=== PATIENT | female | born 1995 | race Two or more races ===

== ENCOUNTER → 2017-03-24 15:58 | Outpatient (CLI) | payer OTHER, MEDICAID, SELFPAY ==
[2017-03-24 17:46] LABS: hCG Titer Quant., Serum 138 mIU/mL (<9 non-preg)
== END ==
PROVIDERS: Family Provider Family Medicine; PCP Family Medicine; Visit Provider Obstetrics & Gynecology
DX: O20.0 Threatened abortion (principal); Z3A.00 Weeks of gestation of pregnancy not specified
CPT/HCPCS: 36415; 84702

== ENCOUNTER → 2017-03-26 16:37 | Outpatient (CLI) | payer OTHER, MEDICAID, SELFPAY ==
[2017-03-26 18:14] LABS: hCG Titer Quant., Serum 49 mIU/mL (<9 non-preg)
== END ==
PROVIDERS: Visit Provider Obstetrics & Gynecology
DX: N91.2 Amenorrhea, unspecified (principal)
CPT/HCPCS: 36415; 84702

== ENCOUNTER → 2017-09-01 16:42 | Outpatient (CLI) | payer OTHER, MEDICAID, SELFPAY ==
[2017-09-01 19:14] LABS: Chlamydia Trachomatis by PCR Negative (Negative); Neisserai gonorrhoeae by PCR Negative (Negative); Probe Check PASS; Sample Adequacy Control PASS; Specimen Processing Control PASS
== END ==
PROVIDERS: Visit Provider Obstetrics & Gynecology
DX: Z11.3 Encounter for screening for infections with a predominantly sexual mode of transmission (principal)
CPT/HCPCS: 87491; 87591

== ENCOUNTER → 2017-09-08 15:37 | Outpatient (CLI) | payer OTHER, MEDICAID, SELFPAY ==
[2017-09-08 17:21] LABS: Basophil# 0.02 X10^3/uL; Basophil% 0.2 % (0-1); Eosinophil# 0.08 X10^3/uL; Eosinophils% 0.7 % (0-5); Hematocrit 36.6 % (37-47); Hemoglobin 11.6 g/dl (12.0-15.0); Mean Corp Hgb Conc 31.7 g/gl (32-36); Mean Corpuscular Hgb 23.7 pg (27.0-32.0); Mean Corpuscular Volume 74.8 fL (81-99); Mean Platelet Vol. 11.2 fl (6.2-12.0); Monocyte# 0.72 X10^3/uL; Monocyte% 6.3 % (0-10); Neutrophil % 70.4 % (47-70); Platelet Count 365 K/mm3 (150-450); RBC Distribution Width CV 16.6 % (11.6-14.6); RBC Distribution Width SD 44.4 fl (35.1-43.9); Red Blood Count 4.89 M/mm3 (4.2-5.4); White Blood Count 11.4 K/mm3 (4.4-11.0)
[2017-09-08 17:25] LABS: POSITIVE COUNT NO; POSITIVE DIFFERENTIAL NO; POSITIVE MORPHOLOGY NO
[2017-09-08 17:26] LABS: Color, Urine Yellow (Yellow); Glucose, Dipstick Normal (Normal); Ketone-Dipstick 5 mg/dl (Negative); Leukocyte Esterase-Dipstick 500 /ul (Negative); Nitrite-Dipstick Negative (Negative); Occult Blood-Urine 25 /ul (Negative); Protein-Dipstick 15 mg/dl (Negative); Specific Gravity, Urine 1.015 (1.002-1.030); Urine Bilirubin Dipstick Negative (Negative); Urine Clarity Clear (Clear); Urine Urobilinogen Normal (Normal)
[2017-09-08 17:29] LABS: Amphetamine Urine VISTA NEGATIVE (<1000 ng/mL); Barbiturate Urine VISTA NEGATIVE (< 200 ng/mL); Benzodiazepine Urine VISTA NEGATIVE (< 200 ng/mL); Cocaine Urine VISTA NEGATIVE (< 300 ng/mL); Ecstacy Urine VISTA NEGATIVE (< 500 ng/mL); Methadone Urine VISTA NEGATIVE (< 300 ng/mL); PCP Urine VISTA NEGATIVE (< 25 ng/mL); THC Urine VISTA NEGATIVE (< 50 ng/mL); Vista UDS pH Range 6
[2017-09-08 17:33] LABS: Thyroid Stim Hormone (TSH) 3.05 uIU/mL (0.358-3.74)
[2017-09-08 18:27] LABS: HIV - WCH Non-Reactive (Nonreactive); Rubella IgG 9.9 IU/mL
[2017-09-10 03:17] LABS: Prenatal RPR NONREACTIVE (NONREACTIVE)
[2017-09-10 08:12] LABS: HEPATITIS B SURFACE AG Negative (Negative); Hep C Antibodies 0.2 s/co ratio (0.0-0.9)
== END ==
PROVIDERS: Visit Provider Obstetrics & Gynecology
DX: Z34.81 Encounter for supervision of other normal pregnancy, first trimester (principal)
CPT/HCPCS: 36415; 80307; 81002; 84443; 85025; 86703; 86762; 86803; 87340

== ENCOUNTER → 2017-10-11 15:46 | Outpatient (CLI) | payer OTHER, MEDICAID, SELFPAY ==
[2017-10-11 16:57] LABS: Color, Urine Yellow (Yellow); Glucose, Dipstick Normal (Normal); Ketone-Dipstick Negative (Negative); Leukocyte Esterase-Dipstick 100 /ul (Negative); Nitrite-Dipstick Negative (Negative); Occult Blood-Urine 25 /ul (Negative); Protein-Dipstick Negative (Negative); Urine Bilirubin Dipstick Negative (Negative); Urine Clarity Clear (Clear); Urine Urobilinogen Normal (Normal)
[2017-10-11 17:07] LABS: Absolute Lymphocyte Count 2.26 X10^3/ul (0.83-4.51); Basophil# 0.01 X10^3/uL; Basophil% 0.1 % (0-1); Eosinophil# 0.07 X10^3/uL; Eosinophils% 0.8 % (0-5); Hematocrit 39.2 % (37-47); Hemoglobin 12.1 g/dl (12.0-15.0); Lymphocyte # 2.26 X10^3/ul (4.0); Mean Corp Hgb Conc 30.9 g/gl (32-36); Mean Corpuscular Hgb 23.4 pg (27.0-32.0); Mean Platelet Vol. 10.8 fl (6.2-12.0); Monocyte# 0.37 X10^3/uL; Monocyte% 4.3 % (0-10); Neutrophil # 5.98 X10^3/uL (2.7-7.7); Neutrophil % 68.7 % (47-70); Platelet Count 314 K/mm3 (150-450); RBC Distribution Width CV 16.2 % (11.6-14.6); RBC Distribution Width SD 44.4 fl (35.1-43.9); Red Blood Count 5.16 M/mm3 (4.2-5.4); White Blood Count 8.7 K/mm3 (4.4-11.0)
[2017-10-11 17:09] LABS: POSITIVE COUNT NO; POSITIVE DIFFERENTIAL NO; POSITIVE MORPHOLOGY NO
[2017-10-11 17:27] LABS: Amphetamine Urine VISTA NEGATIVE (<1000 ng/mL); Barbiturate Urine VISTA NEGATIVE (< 200 ng/mL); Benzodiazepine Urine VISTA NEGATIVE (< 200 ng/mL); Cocaine Urine VISTA NEGATIVE (< 300 ng/mL); Ecstacy Urine VISTA NEGATIVE (< 500 ng/mL); Methadone Urine VISTA NEGATIVE (< 300 ng/mL); PCP Urine VISTA NEGATIVE (< 25 ng/mL); THC Urine VISTA NEGATIVE (< 50 ng/mL); Vista UDS pH Range 6
[2017-10-11 17:30] LABS: Thyroid Stim Hormone (TSH) 2.03 uIU/mL (0.358-3.74)
[2017-10-11 18:10] LABS: HIV - WCH Non-Reactive (Nonreactive); Rubella IgG 9.5 IU/mL
[2017-10-13 11:30] LABS: HEPATITIS B SURFACE AG Negative (Negative); Hep C Antibodies 0.2 s/co ratio (0.0-0.9)
[2017-10-15 03:58] LABS: Prenatal RPR NONREACTIVE (NONREACTIVE)
== END ==
PROVIDERS: Visit Provider Obstetrics & Gynecology
DX: Z34.81 Encounter for supervision of other normal pregnancy, first trimester (principal)
CPT/HCPCS: 36415; 80307; 81002; 84443; 85025; 86703; 86762; 86803; 87340

== ENCOUNTER → 2017-11-08 20:44 | Outpatient (CLI) | payer OTHER, MEDICAID, SELFPAY | PROVIDERS: Family Provider Family Medicine; PCP Family Medicine; Visit Provider Obstetrics & Gynecology | DX: N39.0 Urinary tract infection, site not specified (principal) | CPT/HCPCS: 87077; 87086; 87088; 87186 ==

== ENCOUNTER → 2017-12-13 20:06 | Outpatient (CLI) | payer OTHER, MEDICAID, SELFPAY | PROVIDERS: Family Provider Family Medicine; PCP Family Medicine; Referring Provider Obstetrics & Gynecology; Visit Provider Obstetrics & Gynecology | DX: N39.0 Urinary tract infection, site not specified (principal) | CPT/HCPCS: 87077; 87086; 87088; 87186 ==

== ENCOUNTER 2018-01-22 14:00 | Outpatient (CLI) | payer OTHER, MEDICAID, SELFPAY ==
[2018-01-22 14:38] VITALS: BMI 57.4
[2018-01-22 15:08] LABS: Color, Urine Yellow (Yellow); Glucose, Dipstick Normal (Normal); Ketone-Dipstick 50 mg/dl (Negative); Leukocyte Esterase-Dipstick 100 /ul (Negative); Nitrite-Dipstick Negative (Negative); Occult Blood-Urine 25 /ul (Negative); Protein-Dipstick Negative (Negative); Specific Gravity, Urine 1.015 (1.002-1.030); Urine Bilirubin Dipstick Negative (Negative); Urine Clarity Sl. Cloudy (Clear); Urine Urobilinogen Normal (Normal)
[2018-01-22 16:06] LABS: Fetal Fibronectin Negative
[2018-01-22] MEDS: Terbutaline 1 MG/ML Vial 0.25 MG SC (16:41)
--- NOTE | 2018-01-23 08:34 | OB.TRI.NOTE ---
History of Present Illness Date of Service: 01/22/18 Was patient seen by the physician?: No Reason For Visit: RULE OUT LABOR Date of Service: 01/22/18 Final LANIE: 04/29/18 Final LANIE Source: US <20 weeks Gestational age: 26 Weeks and 1 Days History of Present Illness: 22 yo [id number] female at 26 w 1 d presents for labor check with CC of [facility]Cs. 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 Rested a little and improvement noted, but resumed with inc activity. Prior h/o two SVDs at 40 - 41 wk EGA. Allergies No Known Allergies Allergy (Verified 01/22/18 14:40) Laboratory Studies: Laboratory Tests 01/22/18 01/22/18 Range/Units 15:30 14:50 Urine Color Yellow (Yellow) Urine Clarity Sl. Cloudy (Clear) Urine pH 7.0 (5.0 - 8.0) Ur Specific [place] 1.015 (1.002-1.030) Urine Protein Negative (Negative) mg/dl Urine Glucose (UA) Normal (Normal) mg/dl Urine Ketones 50 H (Negative) mg/dl Urine Occult Blood 25 H (Negative) /ul Urine Nitrite Negative (Negative) Urine Bilirubin Negative (Negative) mg/dL Urine Urobilinogen Normal (Normal) mg/dl Ur Leukocyte Esterase 100 H (Negative) /ul Fibronectin Negative Physical Exam Vitals: FFN negative. Cervix Dilation (cm): 0 Station: -3 Effacement (%): 0 - int os closed. Ext os FT multip NST - FHR Rate Baby A Baseline: +FHT Uterine Activity:: UCs irreg q 2-9 mins Impression/Plan False labor 26 1/7 wk EGA FFN Terbutaline given and no UCs then Home to rest Encouraged inc po hydration. Rest prn. Tylenol Urine to be sent for culture. Notify of results as available.
--- NOTE | 2018-01-23 08:38 | OB.TRI.HP_ITS ---
History of Present Illness Date of Service: 01/22/18 Was patient seen by the physician?: No Reason For Visit: RULE OUT LABOR Date of Service: 01/22/18 Final LANIE: 04/29/18 Final LANIE Source: US <20 weeks Gestational age: 26 Weeks and 1 Days History of Present Illness: 22 yo [id number] female at 26 w 1 d presents for labor check with CC of [facility]Cs. 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 Rested a little and improvement noted, but resumed with inc activity. Prior h/o two SVDs at 40 - 41 wk EGA. Allergies No Known Allergies Allergy (Verified 01/22/18 14:40) Laboratory Studies: Laboratory Tests 01/22/18 01/22/18 Range/Units 15:30 14:50 Urine Color Yellow (Yellow) Urine Clarity Sl. Cloudy (Clear) Urine pH 7.0 (5.0 - 8.0) Ur Specific [place] 1.015 (1.002-1.030) Urine Protein Negative (Negative) mg/dl Urine Glucose (UA) Normal (Normal) mg/dl Urine Ketones 50 H (Negative) mg/dl Urine Occult Blood 25 H (Negative) /ul Urine Nitrite Negative (Negative) Urine Bilirubin Negative (Negative) mg/dL Urine Urobilinogen Normal (Normal) mg/dl Ur Leukocyte Esterase 100 H (Negative) /ul Fibronectin Negative Physical Exam Vitals: FFN negative. Cervix Dilation (cm): 0 Station: -3 Effacement (%): 0 - int os closed. Ext os FT multip NST - FHR Rate Baby A Baseline: +FHT Uterine Activity:: UCs irreg q 2-9 mins Impression/Plan False labor 26 1/7 wk EGA FFN Terbutaline given and no UCs then Home to rest Encouraged inc po hydration. Rest prn. Tylenol Urine to be sent for culture. Notify of results as available.
--- OUTSIDE RECORDS SUMMARY | 2018-03-18 20:38 | XMS RPT_ITS ---
:1995 Author Organization [place] Support Name Relationship Address Phone [employer] Unavailable [id number] + [place] [address] SHELBY PETERSON Unavailable [address] + [place] [address] [facility] [employer] Unavailable [address] + [place] [address] SHELBY PETERSON Unavailable [address] + [place] [address] [employer] [employer] Unavailable . +. [place] [address] SHELBY PETERSON Unavailable [address] + [place] [address] [employer] [employer] Unavailable . +. [place] [address] SHELBY PETERSON Unavailable [address] + [place] [address] [facility] Unavailable [address] + [place] [address] SHELBY PETERSON Unavailable [address] + [place] [address] [facility] Unavailable [address] + [place] [address] SHELBY PETERSON Unavailable [address] + [place] [address] SEBAS [employer] Unavailable [address] + [place], [place] [phone] NOT GIVEN Unavailable Unavailable Unavailable [facility] Unavailable [address] + [place] [address] SHELBY PETERSON Unavailable [address] + [place] [address] [facility] Unavailable [address] + [place] [address] SHELBY PETERSON Unavailable [address] + [place] [address] [employer] Unavailable [address] + [place], [place] [phone] NOT GIVEN Unavailable Unavailable Unavailable Care Team Providers Name Role Phone WESTON HSIEH Admitting Unavailable WESTON HSIEH Attending Unavailable JOSE, XENIA Referring Unavailable WESTON HSIEH Primary Care Unavailable XENIA GARCIA Consulting Unavailable PROVIDER, UNKNOWN Consulting Unavailable JANESSA, DR OSMAN Aranda Admitting Unavailable JANESSA, DR OSMAN Aranda Attending Unavailable JOSE, XENIA Referring Unavailable JANESSA, DR OSMAN Aranda Primary Care Unavailable [place], XENIA Consulting Unavailable PROVIDER, UNKNOWN Consulting Unavailable Fox Coyne Attending Unavailable Doretha, Fox Referring Unavailable Kempner, Xenia PA-C Primary Care Unavailable Memo Brewer Attending Unavailable Osman, Memo Attending Unavailable Osman, Memo Attending Unavailable Osman, Memo Attending Unavailable Osman, Memo Attending Unavailable Kempner, Xenia PA-C Primary Care Unavailable Memo Brewer Referring Unavailable Osman, Memo Attending Unavailable Kempner, Xenia PA-C Primary Care Unavailable Memo Brewer Referring Unavailable Sandy Garcia Attending Unavailable Kempner, Xenia PA-C Primary Care Unavailable Sandy Garcia Referring Unavailable PROBLEMS PROBLEMS DATE TYPE CONDITION / CODE ATTENDING STATUS SOURCE 01/25/2018 Unknown O47.02 - False Sandy Garcia Active [place] labor before 37 Community completed weeks of Hospital gestation, second Repository trimester / O47.02(ICD-10) 12/14/2017 Unknown N39.0 - Urinary Memo Brewer Active [place] tract infection, Community site not specified Hospital / N39.0(ICD-10) Repository 10/11/2017 Unknown Z34.81 - Encounter Memo Brewer for supervision of Community other normal Hospital , first Repository trimester / Z34.81(ICD-10) 09/01/2017 Unknown Z11.3 - Encounter Memo Brewer for screening for Community infections with a Hospital predominantly Repository sexual mode of transmission / Z11.3(ICD-10) 03/26/2017 Unknown N91.2 - Amenorrhea, Memo Brewer Active [facility] unspecified / Community N91.2(ICD-10) Hospital Repository PROCEDURES PROCEDURES No Procedure Records FoundRESULTS RESULTS FIBRONECTIN Collected: 01/22/2018 Status: F Source: [place] 3:30 PM [facility] [place] TYPE CODE TESTS RESULT OUT OF RANGE REFERENCE UNITS LAB L205.0100 Normal fFN Negative Performed By: #### L205.0000 #### [facility] [address] [place], [place], [address] Observed: 01/22/2018 Status: F Source: [place] CULTURE, URINE 3:30 PM [facility] [place] Urine Culture ORGANISM 1: Mixed Gram Positive Organisms [place] Count 25,000-50,000 MIX CULTURE Mixed contaminants. Submit a new specimen if indicated. Performed By: #### M100.0650 #### [facility] [address] [place] [address]. [place], [place], [address] URINALYSIS, ROUTINE Collected: 01/22/2018 Status: F Source: [place] (DIPSTICK) 2:50 PM [facility] [place] Order Comment: How was Urine Obtained? TAPE KELLER OPERATOR TO SPECIFY TYPE CODE TESTS RESULT OUT OF RANGE REFERENCE UNITS LAB L400.3000 Yellow COLOR Normal Yellow LAB L400.3050 Clear Normal CLARITY Sl. Cloudy LAB L400.3200 Normal mg/dl Normal GLUCOSE, UR Normal LAB L400.3300 Negative mg/dL Normal BILIRUBIN URINE Negative LAB L400.3400 Negative mg/dl High 50 KETONE UR LAB L400.3465 1.002-1.030 Normal SP.GR. DIPSTX 1.015 LAB L400.3550 5.0 - 8.0 pH UR Normal 7.0 LAB L400.3600 Negative mg/dl PROT Normal DIPSTX Negative LAB L400.3700 Normal mg/dl Normal UROBILI Normal LAB L400.3750 Negative Normal NITRITE UR Negative LAB L400.3780 Negative /ul High 25 OCCULT BLOOD-UR LAB L400.3800 Negative /ul High LEUK ESTERASE 100 Performed By: #### L400.2011 #### [facility] [place], [place], [address] Observed: 12/13/2017 Status: F Source: [place] CULTURE, URINE 4:00 PM [facility] [place] Urine Culture ORGANISM 1: Escherichia coli [place] Count 11,000-25,000 Escherichia coli: REACTION Amoxacillin/Clavulanic Acid $ 4 S Ampicillin $ 16 I Ampicillin/Sulbactam $ 4 S Cefazolin $ <=4 S Cefepime $ <=1 S Ceftriaxone $ <=1 S Ciprofloxacin $ <=0.25 S ESBL - Ertapenim $$$ <=0.5 S Gentamicin $ <=1 S Imipenem *NF <=0.25 S Levofloxacin $ <=0.12 S Nitrofurantoin $ 32 S Piperacillin/Tazobactam $$ <=4 S Tobramycin $ <=1 S Trimethoprim/Sulfametho $ <=20 S (NF) indicates non-formulary drug at [facility]. Approval by Infectious Disease Specialist required before non-formulary drugs may be ordered and/or dispensed. Performed By: #### M100.0650 #### [facility] [address] [facility] [address] [place], [place], [id number] Observed: 11/08/2017 Status: F Source: [place] CULTURE, URINE 4:30 PM [facility] [place] Urine Culture ORGANISM 1: Escherichia coli [place] Count 50,000-80,000 Escherichia coli: REACTION Amoxacillin/Clavulanic Acid $ 4 S Ampicillin $ >=32 R Ampicillin/Sulbactam $ 16 I Cefazolin $ <=4 S Cefepime $ <=1 S Ceftriaxone $ <=1 S Ciprofloxacin $ >=4 R ESBL - Ertapenim $$$ <=0.5 S Gentamicin $ <=1 S Imipenem *NF <=0.25 S Levofloxacin $ >=8 R Nitrofurantoin $ <=16 S Piperacillin/Tazobactam $$ <=4 S Tobramycin $ <=1 S Trimethoprim/Sulfametho $ <=20 S (NF) indicates non-formulary drug at [facility]. Approval by Infectious Disease Specialist required before non-formulary drugs may be ordered and/or dispensed. Performed By: #### M100.0650 #### [facility] [address] [facility] [address] [place], [place], [address] URINE DRUG SCREEN Collected: 10/11/2017 Status: F Source: [place] (VISTA) 3:50 PM [facility] [place] Order Comment: List of Drugs Taken or Suspected? UNK TYPE CODE TESTS RESULT OUT OF RANGE REFERENCE UNITS LAB L505.0075 TO BE Normal CONFIRMED Result Comment: CONFIRMATORY TESTING FOR ALL POSITIVE URINE DRUG SCREEN RESULTS WILL ONLY BE SENT OUT UPON PHYSICIAN ORDER. VISTA Urine Drug Screen methods provide only preliminary analytical test results. A more specific alternate chemical method must be used in order to obtain a confirmed analytical result. Gas chromatography/mass spectrometery (GC/MS) is the preferred confirmatory method. Clinical consideration and professional judgement should be applied to any drug of abuse test result, particularly when preliminary positive results are used. URINE TCA TESTING MUST BE ORDERED SEPARATELY. USE TEST MNEMONIC: [facility] LAB L505.5005 VISTA UDS PH 6 Normal LAB L505.5015 <1000 ng/mL AMPHETAMINES Normal NEGATIVE LAB L505.5025 < 200 ng/mL BARBITIURATES Normal NEGATIVE LAB L505.5035 < 200 ng/mL BENZODIAZIPINE Normal NEGATIVE LAB L505.5045 < 300 ng/mL COCAINE Normal NEGATIVE LAB L505.5055 < 500 ng/mL ECSTACY Normal NEGATIVE LAB L505.5065 < 300 ng/mL METHADONE Normal NEGATIVE LAB L505.5075 < 300 ng/mL OPIATES Normal NEGATIVE LAB L505.5085 < 25 ng/mL PCP Normal NEGATIVE LAB L505.5095 < 50 ng/mL THC Normal NEGATIVE Performed By: #### L505.5000 #### [facility] [address] [place], [address] CBC W/DIFF, AUTOMATED Collected: 10/11/2017 Status: F Source: [place] 3:50 PM [facility] [place] TYPE CODE TESTS RESULT OUT OF RANGE REFERENCE UNITS LAB L100.1000 4.4-11.0 K/mm3 Normal WBC 8.7 LAB L100.1200 4.2-5.4 M/mm3 Normal RBC 5.16 LAB L100.1300 12.0-15.0 g/dl Normal HGB 12.1 LAB L100.1400 37-47 % Normal HCT 39.2 LAB L100.1500 81-99 fL Low MCV 76.0 LAB L100.1600 27.0-32.0 pg Low MCH 23.4 LAB L100.1700 32-36 g/gl Low MCHC 30.9 LAB L100.1810 11.6-14.6 % High RDW CV 16.2 LAB L100.1820 35.1-43.9 fl High RDW SD 44.4 LAB L100.1900 150-450 K/mm3 Normal PLT 314 LAB L100.2000 6.2-12.0 fl Normal MPV 10.8 LAB L100.2100 47-70 % Normal NEUT% 68.7 LAB L100.2200 19-41 % Normal LY% 26.0 LAB L100.2300 0-10 % Normal MONO% 4.3 LAB L100.2400 0-5 % Normal EO% 0.8 LAB L100.2500 0-1 % Normal BASO% 0.1 LAB L100.2550 0.0-0.9 % Normal IM GRAN % 0.100 Result Comment: IG% - Immature Granulocytes (promyelocytes, myelocytes and metamyelocytes) > 1% indicates that a LEFT SHIFT is Present. LAB L100.2620 2.0-7.7 X10 3/uL Normal Absolute Neut 6.0 LAB L100.2720 0.83-4.51 X10 3/ul Normal Absolute Lymph 2.26 Performed By: #### L100.0100 #### [facility] [address] [place], [place], [id number] THYROID STIM HORMONE Collected: 10/11/2017 Status: F Source: [place] (TSH) 3:50 PM [facility] [place] TYPE CODE TESTS RESULT OUT OF RANGE REFERENCE UNITS LAB L501.9520 0.358-3.74 uIU/mL Normal TSH 2.03 Performed By: #### L501.9520 #### [facility] [address] [place], [address] URINALYSIS, ROUTINE Collected: 10/11/2017 Status: F Source: [place] (DIPSTICK) 3:50 PM [facility] [place] Order Comment: How was Urine Obtained? Urine, Random TYPE CODE TESTS RESULT OUT OF RANGE REFERENCE UNITS LAB L400.3000 Yellow COLOR Normal Yellow LAB L400.3050 Clear Normal CLARITY Clear LAB L400.3200 Normal mg/dl Normal GLUCOSE, UR Normal LAB L400.3300 Negative mg/dL Normal BILIRUBIN URINE Negative LAB L400.3400 Negative mg/dl Normal KETONE UR Negative LAB L400.3465 1.002-1.030 Normal SP.GR. DIPSTX 1.010 LAB L400.3550 5.0 - 8.0 pH UR Normal 6.0 LAB L400.3600 Negative mg/dl PROT Normal DIPSTX Negative LAB L400.3700 Normal mg/dl Normal UROBILI Normal LAB L400.3750 Negative Normal NITRITE UR Negative LAB L400.3780 Negative /ul High 25 OCCULT BLOOD-UR LAB L400.3800 Negative /ul High LEUK ESTERASE 100 Performed By: #### L400.2010 #### [facility] [address] [place], [address] RUBELLA IGG Collected: 10/11/2017 Status: F Source: [place] 3:50 PM [facility] [place] TYPE CODE TESTS RESULT OUT OF RANGE REFERENCE UNITS LAB L509.4000 IU/mL Normal Rubella IgG 9.5 Result Comment: Antibody results Interpretation of Immune Status < 5 IU/ml Presumed Non-immune 5 - < 10 IU/ml Equivocal > or = 10 IU/ml Presumed Immune Performed By: #### L509.4000, L3890.6005 #### [facility] [facility] [place], [address] HIV - [facility] Collected: 10/11/2017 Status: F Source: [place] 3:50 PM [facility] [place] TYPE CODE TESTS RESULT OUT OF RANGE REFERENCE UNITS LAB L3890.6005 Nonreactive Normal HIV - [facility] Non-Reactive Performed By: #### L509.4000, L3890.6005 #### [facility] [address] [facility] [address] [place], [address] T AND S-NO Collected: 10/11/2017 Status: F Source: [place] CHARGE W/PNP 3:50 PM [facility] [place] Order Comment: Reason for Type AND Screen/Red Cells: Surgery? N TYPE CODE TESTS RESULT OUT OF RANGE REFERENCE UNITS LAB B10.0800 B Normal BLOOD POSITIVE TYPE GEL LAB B100.4050 Normal Ab SCREEN NEGATIVE GEL Performed By: #### B100.7550 #### [facility] [address] [facility] [place], [place], [id number] HEPATITIS B SURFACE Collected: 10/11/2017 Status: F Source: [place] AG 3:50 PM [facility] [place] TYPE CODE TESTS RESULT OUT OF RANGE REFERENCE UNITS LAB L3100.0400 Negative Normal HB Negative SURF AG Result Comment: Performed at: - [facility] [address] [id number] Bakery Products Checker: Xavier Salas PhD, Phone: [phone] Performed By: #### L3100.0390, L3100.0625 #### [facility] (refer to report for specific site) refer to report for address and phone number HEPATITIS C ANTIBODIES Collected: 10/11/2017 Status: F Source: [place] 3:50 PM [facility] [place] TYPE CODE TESTS RESULT OUT OF RANGE REFERENCE UNITS LAB L3100.0650 0.0-0.9 s/co ratio Normal HEP C AB 0.2 Result Comment: Negative: < 0.8 Indeterminate: 0.8 - 0.9 Positive: > 0.9 The CDC recommends that a positive HCV antibody result be followed up with a HCV Nucleic Acid Amplification test (491370). Performed By: #### L3100.0390, L3100.0625 #### [facility] (refer to report for specific site) refer to report for address and phone number RPR Collected: 10/11/2017 Status: F Source: [place] 3:50 PM [facility] [place] TYPE CODE TESTS RESULT OUT OF REFERENCE UNITS RANGE LAB L700.5100 NONREACTIVE Normal RPR NONREACTIVE Performed By: #### L700.5100 #### [facility] [address] [place], [place], [address] URINE DRUG SCREEN Collected: 09/08/2017 Status: P Source: [place] (VISTA) 3:39 PM [facility] [place] Order Comment: List of Drugs Taken or Suspected? UNK TYPE CODE TESTS RESULT OUT OF RANGE REFERENCE UNITS LAB L505.0075 TO BE Normal CONFIRMED Result Comment: CONFIRMATORY TESTING FOR ALL POSITIVE URINE DRUG SCREEN RESULTS WILL ONLY BE SENT OUT UPON PHYSICIAN ORDER. VISTA Urine Drug Screen methods provide only preliminary analytical test results. A more specific alternate chemical method must be used in order to obtain a confirmed analytical result. Gas chromatography/mass spectrometery (GC/MS) is the preferred confirmatory method. Clinical consideration and professional judgement should be applied to any drug of abuse test result, particularly when preliminary positive results are used. URINE TCA TESTING MUST BE ORDERED SEPARATELY. USE TEST MNEMONIC: [facility] Performed By: #### L505.5000 #### [facility] [address] [place], [address] CBC W/DIFF, AUTOMATED Collected: 09/08/2017 Status: F Source: [place] 3:39 PM [facility] [place] TYPE CODE TESTS RESULT OUT OF RANGE REFERENCE UNITS LAB L100.1000 4.4-11.0 K/mm3 High WBC 11.4 LAB L100.1200 4.2-5.4 M/mm3 Normal RBC 4.89 LAB L100.1300 12.0-15.0 g/dl Low HGB 11.6 LAB L100.1400 37-47 % Low HCT 36.6 LAB L100.1500 81-99 fL Low MCV 74.8 LAB L100.1600 27.0-32.0 pg Low MCH 23.7 LAB L100.1700 32-36 g/gl Low MCHC 31.7 LAB L100.1810 11.6-14.6 % High RDW CV 16.6 LAB L100.1820 35.1-43.9 fl High RDW SD 44.4 LAB L100.1900 150-450 K/mm3 Normal PLT 365 LAB L100.2000 6.2-12.0 fl Normal MPV 11.2 LAB L100.2100 47-70 % High NEUT% 70.4 LAB L100.2200 19-41 % Normal LY% 22.0 LAB L100.2300 0-10 % Normal MONO% 6.3 LAB L100.2400 0-5 % Normal EO% 0.7 LAB L100.2500 0-1 % Normal BASO% 0.2 LAB L100.2550 0.0-0.9 % Normal IM GRAN % 0.400 Result Comment: IG% - Immature Granulocytes (promyelocytes, myelocytes and metamyelocytes) > 1% indicates that a LEFT SHIFT is Present. LAB L100.2620 2.0-7.7 X10 3/uL High Absolute Neut 8.0 LAB L100.2720 0.83-4.51 X10 3/ul Normal Absolute Lymph 2.50 Performed By: #### L100.0100 #### [facility] [address] [place], [address] URINALYSIS, ROUTINE Collected: 09/08/2017 Status: F Source: [place] (DIPSTICK) 3:39 PM [facility] [place] Order Comment: How was Urine Obtained? CLEAN CATCH TYPE CODE TESTS RESULT OUT OF RANGE REFERENCE UNITS LAB L400.3000 Yellow COLOR Normal Yellow LAB L400.3050 Clear Normal CLARITY Clear LAB L400.3200 Normal mg/dl Normal GLUCOSE, UR Normal LAB L400.3300 Negative mg/dL Normal BILIRUBIN URINE Negative LAB L400.3400 Negative mg/dl High 5 KETONE UR LAB L400.3465 1.002-1.030 Normal SP.GR. DIPSTX 1.015 LAB L400.3550 5.0 - 8.0 pH UR Normal 6.0 LAB L400.3600 Negative mg/dl High PROT 15 DIPSTX LAB L400.3700 Normal mg/dl Normal UROBILI Normal LAB L400.3750 Negative Normal NITRITE UR Negative LAB L400.3780 Negative /ul High 25 OCCULT BLOOD-UR LAB L400.3800 Negative /ul High LEUK ESTERASE 500 Performed By: #### L400.2011 #### [facility] [address] [place], [address] URINE DRUG SCREEN Collected: 09/08/2017 Status: F Source: [place] (VISTA) 3:39 PM [facility] [place] Order Comment: List of Drugs Taken or Suspected? UNK TYPE CODE TESTS RESULT OUT OF RANGE REFERENCE UNITS LAB L505.0075 TO BE Normal CONFIRMED Result Comment: CONFIRMATORY TESTING FOR ALL POSITIVE URINE DRUG SCREEN RESULTS WILL ONLY BE SENT OUT UPON PHYSICIAN ORDER. VISTA Urine Drug Screen methods provide only preliminary analytical test results. A more specific alternate chemical method must be used in order to obtain a confirmed analytical result. Gas chromatography/mass spectrometery (GC/MS) is the preferred confirmatory method. Clinical consideration and professional judgement should be applied to any drug of abuse test result, particularly when preliminary positive results are used. URINE TCA TESTING MUST BE ORDERED SEPARATELY. USE TEST MNEMONIC: [facility] LAB L505.5005 VISTA UDS PH 6 Normal LAB L505.5015 <1000 ng/mL AMPHETAMINES Normal NEGATIVE LAB L505.5025 < 200 ng/mL BARBITIURATES Normal NEGATIVE LAB L505.5035 < 200 ng/mL BENZODIAZIPINE Normal NEGATIVE LAB L505.5045 < 300 ng/mL COCAINE Normal NEGATIVE LAB L505.5055 < 500 ng/mL ECSTACY Normal NEGATIVE LAB L505.5065 < 300 ng/mL METHADONE Normal NEGATIVE LAB L505.5075 < 300 ng/mL OPIATES Normal NEGATIVE LAB L505.5085 < 25 ng/mL PCP Normal NEGATIVE LAB L505.5095 < 50 ng/mL THC Normal NEGATIVE Performed By: #### L505.5000 #### [facility] [id number] THYROID STIM HORMONE Collected: 09/08/2017 Status: F Source: [place] (TSH) 3:39 PM [facility] [place] TYPE CODE TESTS RESULT OUT OF RANGE REFERENCE UNITS LAB L501.9520 0.358-3.74 uIU/mL Normal TSH 3.05 Performed By: #### L501.9520 #### [facility]. [facility] [id number] RUBELLA IGG Collected: 09/08/2017 Status: F Source: [place] 3:39 PM [facility] [place] TYPE CODE TESTS RESULT OUT OF RANGE REFERENCE UNITS LAB L509.4000 IU/mL Normal Rubella IgG 9.9 Result Comment: Antibody results Interpretation of Immune Status < 5 IU/ml Presumed Non-immune 5 - < 10 IU/ml Equivocal > or = 10 IU/ml Presumed Immune Performed By: #### L509.4000, L3890.6005 #### [facility] [address] [facility] [facility] [id number] HIV - [facility] Collected: 09/08/2017 Status: F Source: [place] 3:39 PM [facility] [place] TYPE CODE TESTS RESULT OUT OF RANGE REFERENCE UNITS LAB L3890.6005 Nonreactive Normal HIV - [facility] Non-Reactive Performed By: #### L509.4000, L3890.6005 #### [facility]. [facility] [id number] T AND S-NO Collected: 09/08/2017 Status: F Source: [place] CHARGE W/PNP 3:39 PM [facility] [place] Order Comment: Reason for Type AND Screen/Red Cells: Surgery? N TYPE CODE TESTS RESULT OUT OF RANGE REFERENCE UNITS LAB B10.0800 B Normal BLOOD POSITIVE TYPE GEL LAB B100.4050 Normal Ab SCREEN NEGATIVE GEL Performed By: #### B100.7550 #### [facility] [address] [place], [place], [address] RPR Collected: 09/08/2017 Status: F Source: [place] 3:39 PM [facility] [place] TYPE CODE TESTS RESULT OUT OF REFERENCE UNITS RANGE LAB L700.5100 NONREACTIVE Normal RPR NONREACTIVE Performed By: #### L700.5100 #### [facility] [address] [place], [place], [address] HEPATITIS B SURFACE Collected: 09/08/2017 Status: F Source: [place] AG 3:39 PM [facility] [place] TYPE CODE TESTS RESULT OUT OF RANGE REFERENCE UNITS LAB L3100.0400 Negative Normal HB Negative SURF AG Result Comment: Performed at: - [facility] [id number] Bakery Products Checker: Xavier Salas PhD, Phone: [phone] Performed By: #### L3100.0390, L3100.0625 #### [facility] (refer to report for specific site) refer to report for address and phone number HEPATITIS C ANTIBODIES Collected: 09/08/2017 Status: F Source: [place] 3:39 PM [facility] [place] TYPE CODE TESTS RESULT OUT OF RANGE REFERENCE UNITS LAB L3100.0650 0.0-0.9 s/co ratio Normal HEP C AB 0.2 Result Comment: Negative: < 0.8 Indeterminate: 0.8 - 0.9 Positive: > 0.9 The CDC recommends that a positive HCV antibody result be followed up with a HCV Nucleic Acid Amplification test ([id number]). Performed By: #### L3100.0390, L3100.0625 #### [facility] (refer to report for specific site) refer to report for address and phone number CT/NG [facility] BY PCR Collected: 09/01/2017 Status: F Source: [place] 2:45 PM [facility] [place] TYPE CODE TESTS RESULT OUT OF RANGE REFERENCE UNITS LAB L8200.2100 Negative Normal Chlam Negative Trac PCR LAB L8200.2200 Negative Normal NG by Negative PCR Performed By: #### L8200.1999 #### [facility] [address] [place], [address] EMERGENCY REPORT Observed: 07/14/2017 Status: F Source: ERNST FARRELL 7:36 AM [facility] EMERGENCY ROOM REPORT NAME ACCOUNT SEX AGE ADMIT DISCHARGE PT MED. RECORD# NUMBER DATE DATE TYPE WANDY [id number] F 07/07/17 07/07/17 3 SLIME Sadiq [id number] ROOM: ER DATE OF : 1995 DICTATING PHYSICIAN: Osman Riddle CHIEF COMPLAINT: Chest pain, shortness of breath. HISTORY OF PRESENT ILLNESS: Patient states that intermittently over the last several weeks she has been having some slight chest discomfort and feels slightly short of breath with it. This will come and go, not seemingly in response to any specific activity. This morning she had an episode where this was a little more severe and she felt like her heart was racing. She felt a little dizzy and lightheaded, had some tingling to her hands and fingers, and so she returns here for evaluation. No recent injury or trauma. PAST MEDICAL HISTORY: Negative for any significant medical problems. Apparently had some irregular heartbeat as a child. PAST SURGICAL HISTORY: She has had previous hernia surgery. No other surgeries. MEDICATIONS: Takes no medications. ALLERGIES: No allergies. SOCIAL HISTORY: Patient lives at home. She does not smoke or drink alcohol. She does work. REVIEW OF SYSTEMS: No bowel or bladder symptoms or swelling to extremities. PHYSICAL EXAMINATION: This is a 21-year-old, obese female who seems minimally anxious but in no acute distress. Skin is warm and dry. HEENT exam is all within normal limits. Neck is supple without adenopathy. No tenderness. Lungs are slightly diminished but clear without crackles or wheezes. Cardiac exam, regular tachycardiac rate without ectopy or murmurs. Abdomen is obese, soft and nontender. No chest wall tenderness. Moves all extremities appropriately. No focal weakness. No clubbing, cyanosis or edema, redness, tightness, or asymmetry. Good peripheral pulses and capillary refill. VITAL SIGNS: Temperature 99.0, pulse 111, respirations 14, blood pressure 137/80. Her O2 saturation was 95%. DIAGNOSTIC DATA: Patient had an EKG which showed sinus tachycardia but no Page 1 of 2 [facility] Emergency Room Report acute ST or T changes. A number of lab studies were obtained. Lab studies returned showing a normal CBC and normal BMP. D-dimer was normal at 183. Magnesium, BNP and troponin were all normal. Troponin less than 0.01. CMP was all within normal limits. EMERGENCY DEPARTMENT COURSE AND TREATMENT: I did give her 0.5 mg of lorazepam p.o. and 25 mg of Lopressor p.o. She felt very much improved with the above medications. Her heart rate was in the 80s. Blood pressure was about 120 systolic. DIAGNOSIS: Patient presents with symptoms that I feel are most consistent with acute anxiety or panic disorder. PLAN/DISPOSITION: Discussed management with her. Recommended that she follow up with her family physician within the next week. I did give her a prescription for a few lorazepam to have at home to take on a p.r.n. basis. Dictated By: Osman Riddle MD 07/07/17 12:16 JOB #: [id number] Transcribed By: [email or web address] 07/07/17 21:30 Electronically signed by: KRYSTYNA Riddle M.D. 07/14/17 07:36 Page 2 of 2 [facility] Emergency Room Report TROPONIN Collected: 07/07/2017 Status: F Source: [facility] 10:30 AM [facility] REPOSITORY TYPE CODE TESTS RESULT OUT OF REFERENCE UNITS RANGE LAB TROPONIN 0.00 - 0.05 ng/ml I(LOINC) TROPONIN I <0.01 Result Comment: Elevated troponin (above the 99th percentile) usually indicates myocardial ischemia. Results must be interpreted within the clinical setting. 1.Non-ischemic pathology can also cause elevated troponin levels (e.g., acute pulmonary embolism, myocarditis, pericarditis, heart failure, intracranial injury, rhabdomyolisis, sepsis, shock and renal insufficiency). 2.Approximately 1% of healthy adults have elevated troponin levels. 3.Analytical false positive results rarely occur(due to multiple interferences such as heterophile antibodies). Performed By: #### [id number] #### [facility] [place],[address] [place] [address] CMP WITH EGFR Collected: 07/07/2017 Status: F Source: [facility] 10:30 AM [facility] REPOSITORY TYPE CODE TESTS RESULT OUT OF RANGE REFERENCE UNITS LAB CMP with eGFR(LOINC) CMP with eGFR Result Comment: COMPREHENSIVE METABOLIC PANEL LAB SODIUM(LOINC) 136 - 145 mmol/l SODIUM 138 LAB POTASSIUM(LOINC) 3.5 - 5.1 mmol/L POTASSIUM 4.3 LAB CHLORIDE(LOINC) 98 - 107 mmol/L CHLORIDE 104 LAB CO2(LOINC) 21.0 - mmol/L 31.0 CO2 28.0 LAB GLUCOSE(LOINC) 74 - 106 mg/dl GLUCOSE 102 LAB BUN(LOINC) 6 - 20 mg/dl BUN 12 LAB CREATININE(LOINC) 0.6 - 1.2 mg/dl CREATININE 0.7 LAB AST/SGOT(LOINC) 13 - 39 U/L AST/SGOT 13 LAB ALK PHOS(LOINC) 38 - 126 U/L ALK PHOS 47 LAB CALCIUM(LOINC) 8.6 - mg/dl 10.2 CALCIUM 9.0 LAB TOTAL PROTEIN(LOINC) 6.4 - 8.3 g/dl TOTAL PROTEIN 7.4 LAB ALBUMIN(LOINC) 3.4 - 4.8 g/dL ALBUMIN 3.9 LAB GLOBULIN(LOINC) 1.5 - 3.8 G/DL GLOBULIN 3.5 LAB A/G RATIO(LOINC) 0.9 - 1.6 A/G RATIO 1.1 LAB TOTAL BILI(LOINC) 0.0 - 1.5 mg/dl TOTAL BILI 0.4 LAB B/C RATIO(LOINC) 0 - 30 ratio B/C RATIO 17 LAB ALT/SGPT(LOINC) 8 - 35 U/L ALT/SGPT 16 LAB ANION GAP(LOINC) 10 - 20 mmol/L ANION GAP 10 LAB AGE(LOINC) years AGE 21 LAB eGFR(LOINC) 60 - 999 ML/MINUTE eGFR >60 LAB eGFR(AA)(LOINC) 60 - 999 ML/MINUTE eGFR(AA) >60 Result Comment: ACCORDING TO THE NATIONAL KIDNEY DISEASE EDUCATION PROGRAM(NKDE), A NORMAL eGFR IS A VALUE GREATER THAN OR EQUAL TO 60 ML/MIN/1.73 SQ METERS. CHRONIC KIDNEY DISEASE: <60mL/MIN/1.73 SQ METERS KIDNEY FAILURE: <15mL/MIN/1.73 SQ METERS THIS TEST SHOULD ONLY BE USED FOR PATIENTS 18 YEARS OF AGE AND OLDER. Performed By: #### [id number] #### [place] [id number] MAGNESIUM Collected: 07/07/2017 Status: F Source: [facility] 10:30 AM [facility] REPOSITORY TYPE CODE TESTS RESULT OUT OF REFERENCE UNITS RANGE LAB MAGNESIUM( 1.6 - 2.6 mg/dl LOINC) MAGNESIUM 2.1 Performed By: #### [id number] #### [address] [address] CBC Collected: 07/07/2017 Status: F Source: [facility] 10:30 [facility] REPOSITORY TYPE CODE TESTS RESULT OUT OF RANGE REFERENCE UNITS LAB CBC(LOINC) CBC Result Comment: CBC-COMPLETE BLOOD COUNT LAB WBC(LOINC) 4.5 - 10.8 x 10EE3/UL WBC 9.9 LAB RBC(LOINC) 4.10 - x 10EE6/UL 5.30 RBC High 5.36 LAB HEMOGLOBIN(LOINC 12.0 - g/dl ) 16.0 HEMOGLOBIN 12.5 LAB HEMATOCRIT(LOINC 34.0 - % ) 46.0 HEMATOCRIT 38.5 LAB MCV(LOINC) 80 - 99 fl MCV Low 72 LAB MCH(LOINC) 27 - 33 pg MCH Low 23 LAB MCHC(LOINC) 32 - 36 X10 3 MCHC 32 LAB RDW/CV(LOINC) 12.0 - % 15.6 RDW/CV High 16.2 LAB PLATELET(LOINC) 150 - 450 x10EE3/UL PLATELET 392 LAB MPV(LOINC) 6.6 - 10.5 fl MPV 8.6 Result Comment: AUTOMATED DIFFERENTIAL LAB NEUT %(LOINC) 46.0 - % 76.0 NEUT % 73.4 LAB LYMPH %(LOINC) 20.0 - % 45.0 LYMPH % 20.6 LAB MONOS %(LOINC) 0.0 - 10.0 % MONOS % 5.4 LAB EO %(LOINC) 0.0 - 7.0 % EO % 0.3 LAB BASO %(LOINC) 0.0 - 2.0 % BASO % 0.3 LAB Lymph #(LOINC) 0.80 - x10EE3/ 2.80 UL Lymph # 2.00 LAB Neut #(LOINC) 1.50 - x10EE3/ 7.10 UL Neut # 7.30 High LAB Nuckolls #(LOINC) 0.20 - x10EE3/ 1.00 UL Nuckolls # 0.50 LAB EO #(LOINC) 0.00 - x10EE3/ 0.50 UL EO # 0.00 LAB Baso #(LOINC) 0.00 - x10EE3/ 0.10 UL Baso # 0.00 LAB MANUAL DIFF(LOINC) MANUAL DIFF N/A LAB MORPHOLOGY(LOIN C) MORPHOLOGY REVIEWED Result Comment: {CD] Performed By: #### [id number] #### [place] [address] BNP (B-TYPE NATRIURETIC Collected: 07/07/2017 Status: F Source: [facility] PEPTIDE) 10:30 AM [facility] REPOSITORY TYPE CODE TESTS RESULT OUT OF RANGE REFERENCE UNITS LAB BNP(LOINC) 1 - 100 pg/ml BNP 19 Performed By: #### [id number] #### [place] [address] D-DIMER, QUANTITATIVE Collected: 07/07/2017 Status: F Source: [facility] 10:30 [facility] REPOSITORY TYPE CODE TESTS RESULT OUT OF REFERENCE UNITS RANGE LAB D-DIMER, QUANTITATI VE(LOINC) D-DIMER, QUANTITATIVE Result Comment: QUANT D-DIMER LAB D-DIMER QUANT(LOINC) 0 - 230 ng/ml D-DIMER QUANT 183 Performed By: #### [id number] #### [place] [address] TSH Collected: 07/07/2017 Status: F Source: [facility] 10:30 AM [facility] REPOSITORY TYPE CODE TESTS RESULT OUT OF RANGE REFERENCE UNITS LAB TSH(LOINC) 0.34 - 5.60 uIU/ml TSH 2.11 Performed By: #### [id number] #### [address] [place] [address] OPERATIVE REPORT Observed: 04/14/2017 Status: F Source: [facility] 8:36 AM [facility] OPERATIVE REPORT NAME NUMBER SEX AGE ADMIT DISC TYPE MED.RECORD# WANDY PALENCIA N [id number] F 03/05/17 03/05/17 O/P [id number] ROOM:[facility] DATE OF :1995 PHYSICIAN NO.:[id number] PHYSICIAN NAME:E-SIGN DR. HSIEH PHYSICIAN:AYUSH GARCIA DATE OF SURGERY: 03/05/2017 SURGEON: Weston Hsieh MD SALES AND SERVICE ASSOCIATE: ANESTHESIOLOGIST: ANESTHETIC: MAC. PREOPERATIVE DIAGNOSIS: Blood per rectum. POSTOPERATIVE DIAGNOSIS: Normal endoscopies. OPERATION PERFORMED: (1) EGD. (2) Colonoscopy. COMPLICATIONS: None. ESTIMATED BLOOD LOSS: None. DRAINS: None. SPECIMENS: None. SIGNIFICANT FINDINGS: Both EGD and colonoscopy were within normal limits. No etiologies to account for pathologic blood per rectum. Bleeding most likely secondary to internal hemorrhoidal bleeding. DISPOSITION: Home. Diet regular. Activity regular. Medications regular. RECOMMENDATIONS: No further endoscopies or interventions are indicated. DESCRIPTION OF OPERATION: Prior to initiation of MAC anesthesia, the patient's oropharyngeal cavity was locally anesthetized and a bite block was placed. Following the initiation of MAC anesthesia, the patient was placed in the left lateral decubitus position. The procedure was begun with colonoscopy. A digital rectal examination was performed. There were no findings on digital rectal examination. Flexible colonoscope was then introduced into the anus and advance to the ileocecal junction under direct visualization. The scope was then slowly withdrawn and the colonic mucosa was inspected meticulously. It was noted that the colonic prep was good. There were no abnormalities within the cecum, ascending colon, transverse colon, descending colon, sigmoid colon, anus or rectum. Retroflexion of the scope within the rectum did reveal some minor internal hemorrhoids, otherwise no abnormalities. The scope was then straightened, the colon desufflated and the patient prepared for EGD. A flexible endoscope was placed into the oral cavity and advanced under direct visualization. There were no abnormalities appreciated within the esophagus, GE junction or stomach. The scope was advanced to the gastric antrum after insufflating the stomach with CO2 gas. Retroflexion was performed at the level of the gastric antrum and did not reveal any abnormalities. The stomach was then desufflated and the scope was removed. The oropharyngeal cavity was visualized on the way out and the vocal cords appeared within normal limits. The scope was then removed. The patient was then awakened and taken to the PACU in good and stable condition. D: Weston Hsieh MD TD: 15:16 JOB #: [id number] Electronically signed by: E-SIGN DR. HSIEH 03/10/17 09:05 Transcribed by: diana 03/06/2017 10:15 OPERATIVE REPORT Observed: 04/14/2017 Status: F Source: [facility] 8:36 AM [facility] HISTORY AND PHYSICAL EXAMINATION NAME NUMBER SEX AGE ADMIT DISC TYPE MED.RECORD# WANDY PALENCIA N [id number] F 03/05/17 03/05/17 O/P [id number] ROOM:[facility] DATE OF :1995 PHYSICIAN NO.:[id number] PHYSICIAN NAME:E-SIGN DR. HSIEH PHYSICIAN:AYUSH GARCIA CHIEF COMPLAINT: Abdominal pain and rectal bleeding. HISTORY OF PRESENT ILLNESS: Ms. Peterson is a 21-year-old female who presents with a complain of bloody stools. The onset of the bloody stool was acute, and reoccurred in an intermittent fashion. The patient reports that her first episode was 4 months ago, and she had another episode of bloody stools at least 2 months ago. The bloody stool are characterized as blood mixed in stools, dark clots, blood streaking of the toilet paper and bloody toilet water. The symptoms are associated with abdominal pain. The patient denies any bowel habits, change in caliber of stools, dizziness, easily bruising, family history or personal history of easy bruising or bleeding defects. No family history of colon cancer. In addition, the patient denies taking any chronic aspirin or anticoagulants. PAST MEDICAL HISTORY: Otitis media with ruptured tympanic membrane on the right and cystitis. PAST SURGICAL HISTORY: Significant for cholecystectomy and hernia repair. MEDICATIONS: None. ALLERGIES: No known drug allergies. FAMILY HISTORY: Negative. SOCIAL HISTORY: Negative x3. Immunizations are up-to-date. REVIEW OF SYSTEMS: Ten systems review of systems negative except as above. PHYSICAL EXAMINATION GENERAL APPEARANCE: In general, she is alert, oriented, appropriate with no acute distress. Mildly obese, but well-developed. VITAL SIGNS: She is afebrile. Vital signs stable, within normal limits. LUNGS: Clear to auscultation bilaterally. HEART: Regular rate and rhythm. ABDOMEN: Soft, nontender, nondistended. EXTREMITIES: Show no cyanosis, edema, or gross deformity. NEUROLOGICAL: GCS of 15. Alert and oriented x3. Cranial nerves II-XII are grossly intact, 5/5 muscle strength in all groups, and sensation grossly intact. IMPRESSION: This is a 21-year-old with blood per rectum. PLAN: We will proceed for EGD colonoscopy. Risks and benefits and alternatives were discussed. All questions were answered. The patient voiced understanding and in agreement with the plan. D: Weston Hsieh MD TD: 10:55 JOB #: [id number] Electronically signed by: E-SIGN DR. HSIEH 04/14/17 08:35 Transcribed by: moe 04/01/2017 13:41 Update to H&P: [] No changes: I have examined the patient and reviewed the H&P and there are no changes. [] As previously dictated with the following changes: PHYSICIAN SIGNATURE: TIME: DATE: ELECTRONICALLY SIGNED BY: E-SIGN DR. HSIEH 04/14/17 08:35 HCG TITER QUANT., Collected: 03/26/2017 Status: F Source: [facility] 4:40 PM [facility] [place] TYPE CODE TESTS RESULT OUT OF RANGE REFERENCE UNITS LAB L700.8000 <9 non-preg mIU/mL High HCG 49 QUANT. Performed By: #### L700.8000 #### [facility] [address] [place], [place], [address] HCG TITER QUANT., Collected: 03/24/2017 Status: F Source: [facility] [place] 4:02 PM [facility] [place] TYPE CODE TESTS RESULT OUT OF RANGE REFERENCE UNITS LAB L700.8000 <9 non-preg mIU/mL High HCG 138 QUANT. Performed By: #### L700.8000 #### [facility] [address] [facility] [place], [place], [address] SERUM QUAL Collected: 03/05/2017 Status: F Source: [facility] 11:16 AM [facility] REPOSITORY TYPE CODE TESTS RESULT OUT OF REFERENCE UNITS RANGE LAB NEGATIVE SER(LOINC) SER NEGATIVE LAB INTERNAL QC(LOINC) INTERNAL QC PASS LAB EXTERNAL QC DONE?(LOINC) EXTERNAL QC YES DONE? Performed By: #### [id number] #### [facility] [place],[address] [place] [address] ALLERGIES ALLERGIES DATE TYPE / CODE NAME / CODE REACTION SEVERITY SOURCE 01/22/2018 Drug No Known Unknown [place] Allergy[facility]118875890(S [facility] Repository Miscellaneous No Known Drug Moderate [facility] Allergy/744963367(S Allergies (Severity [facility] NOMED CT) Modifier) Hospital (Qualifier Repository Value) ENCOUNTERS ENCOUNTERS ADMIT/DISCHARGE ACCOUNT ADMITTING ENCOUNTER LOCATION SOURCE NUMBER CLASS 01/22/2018/ [id number] Ambulatory [facility] 8 7 [facility] ing:WPOUTRoom Repository : [id number] 12/13/2017 [id number] [place] [facility] ing:LABSPEC Repository 11/08/2017 [id number] Ambulatory Shawn Shawn 2 [facility] ing:LABSPEC Repository 10/11/2017 [id number] [place] [facility] ing:WOBLAB Repository 09/08/2017 [id number] [place] [facility] ing:WOBLAB Repository 09/01/2017 [id number] Amb[place] [facility] ing:LABSPEC Repository 07/07/2017/ [id number] DR OSMAN RIDDLE Emergency BuildinR [facility] 8 C oom: ERBed: [facility] Repository 03/26/2017 [id number] Ambulatory Shawn Shawn 7 [facility] ing:WOBLAB Repository 03/24/2017 [id number] Ambulatory [place] Shawn 6 [facility] ing:LAB Repository 03/05/2017/ [id number] LUCIANA, Ambulatory BuildinR [facility] 8 WSETON T oom: [address] Repository PAYERS PAYERS ENCOUNTER GUARANTOR PAYER SUBSCRIBER SOURCE 01/22/2018 SLIME Escobar [id number] TR Insurance:MEDICAL HUNDLEYDOB: [address] [id number] [facility] [address]Zkq: Number: Repository [id number] () Date:2227-73-94KX [address] [address]FJ: 01/22/2018 Secondary SLIME Escobar Insurance:[facility] HUNDLEYDOB: [facility] [id number] [facility] Number: Repository [id number] Date:6662-43-37XW [address] [id number]: 01/22/2018 Tertiary NOT GIVENUNK [place] Insurance:SELF PAY [facility] Number: Effective Repository Date:2018-01-22 12/13/2017 SLIME N Primary SHELBY [place] [id number] TR Insurance:[address] [address]Jmp: Number: Repository [id number] (HP) Date:0142-80-87KC [address] [place] [address]PC: 12/13/2017 Secondary SLIME N Shawn Insurance:[facility]: [facility] [id number] Hospital Number: Repository [id number] Date:7425-11-62MK [address] [place] [address]RU: 12/13/2017 Tertiary NOT GIVENUNK [place] Insurance:SELF PAY [facility] Number: Effective Repository Date:2017-12-13 11/08/2017 SLIME N Primary SHELBY Ojeda [place] [id number] TR Insurance:[address] [address]Sud: Number: Repository [id number] (HP) Date:2150-19-27ER [address] [place] [address]RA: 11/08/2017 Secondary SLIME N [place] Insurance:[facility]: [facility] [id number] Hospital Number: Repository [id number] Date:9928-06-49JQ [address] [place] [address]KH: 11/08/2017 Tertiary NOT GIVENUNK Shawn Insurance:SELF PAY [facility] Number: Effective Repository Date:2017-11-08 10/11/2017 Slime Primary SHELBY M [place] [id number] Insurance:[address], Number: [place] [id number]: [id number] Date:6455-73-25MC BOX (HP) [address] [place] [address]PV: 10/11/2017 Secondary Slime Shanw Insurance:[facility]: [facility] [id number] Hospital Number: Repository [id number] Date:2953-12-91JC [address] [place] [address]LM: 10/11/2017 Tertiary NOT GIVENUNK [place] Insurance:SELF PAY [facility] Number: Effective Repository Date:2017-10-11 09/08/2017 Slime Primary SHELBY Escobar [id number] Insurance:[address], Number: [place] [id number]: [id number] Date:6080-82-33EA [address] () [address], [place] [address]NH: 09/08/2017 Secondary Slime [place] Insurance:[facility]: [facility] [id number] Hospital Number: Repository [id number] Date:4563-15-69BQ [address] [address]KT: 09/08/2017 Tertiary NOT GIVENUNK [place] Insurance:SELF PAY [facility] Number: Effective Repository Date:2017-09-08 09/01/2017 Slime Primary SHELBY Escobar [id number] Insurance:[address], Number: [place] [id number]: [id number] Date:5810-51-95ZM [address] () [address], [place] [address]EU: 09/01/2017 Secondary Slime Shawn [facility] [id number] Hospital Number: Repository [id number] Date:0040-61-52KU [address] [address]MG: 09/01/2017 Tertiary NOT GIVENUNK Shawn Insurance:SELF PAY [facility] Number: Effective Repository Date:2017-09-01 07/07/2017 SLIME N Primary SHELBY Ernst Pomerene HUNDLEYDOB: Insurance:MEDICAL HUNDLEYDOB: [facility] [id number] [facility] [id number] [facility] [address] [facility] [address] Repository [address] [place] [address], Number: [facility] [place] [id number] [place] [id number]: Date:Plan Name: () 07/07/2017 Secondary SLIME Farrell Insurance:OBERON HUNDLEYDOB: [facility] [id number] Hospital PLAN OUTPATPolicy CLOSE Repository Number: [facility] [id number] [place] [id number] Date:Plan Name:X4 03/26/2017 Slime Primary SHELBY Escobar [id number] Insurance:[address], Number: [place] [id number]: [id number] Date:9872-71-23CL [address] () [address], [place] [address]HA: 03/26/2017 Secondary Slime [place] Insurance:[facility]: [facility] [id number] [facility] Number: Repository [id number] Date:5046-75-03MJ [address] [place] [address]SQ: 03/26/2017 Tertiary NOT GIVENUNK Shawn Insurance:SELF PAY [facility] Number: Effective Repository Date:2017-03-26 03/24/2017 Slime Primary SHELBY Escobar [id number] Insurance:[address], Number: Repository [place] [id number]: [id number] Date:9199-47-04IA [address] () [address], [place] [address]CJ: 03/24/2017 Secondary Slime Shawn [facility] [id number] Hospital Number: Repository [id number] Date:8332-98-04AR [address] [place] [address]NF: 03/24/2017 Tertiary NOT GIVENUNK Shawn Insurance:SELF PAY [facility] Number: Effective Repository Date:2017-03-24 03/05/2017 SLIME Babcock Primary SHELBY Ernst Farrell HUNDLEYDOB: Insurance:MEDICAL HUNDLEYDOB: [facility] [id number] [facility] [id number] [facility] [address] OUTPATIENTPolicy [address] Repository [address] [place] [address], Number: [place] [id number] [place] [id number]: Date:Plan Name:M3 () 03/05/2017 Secondary SLIME Farrell Insurance:OBERON HUNDLEYDOB: [facility] [id number] Hospital PLAN OUTPATPolicy CLOSE Repository Number: STREET[address] [id number] [place], [place] [id number] Date:
== END 2018-01-22 17:15 | disposition home or self-care (01) ==
LOC: WPOUT 14:13 → WP 14:13
PROVIDERS: Family Provider Family Medicine; PCP Family Medicine; Referring Provider Obstetrics & Gynecology; Visit Provider Obstetrics & Gynecology
DX: O47.02 False labor before 37 completed weeks of gestation, second trimester (principal); Z3A.26 26 weeks gestation of pregnancy
CPT/HCPCS: 59025; 59050; 81002; 82731; 87086; 87088; 96372; 99218; G0378

== ENCOUNTER → 2018-02-09 14:22 | Outpatient (CLI) | payer OTHER, MEDICAID, SELFPAY ==
[2018-01-22 14:38] VITALS: BMI 57.4
[2018-02-09 16:00] LABS: Glucose Challenge Gest 1H 50g 85 mg/dL (70-140); Hematocrit 37.2 % (37-47); Hemoglobin 11.6 g/dl (12.0-15.0); Mean Corp Hgb Conc 31.2 g/gl (32-36); Mean Corpuscular Hgb 24.5 pg (27.0-32.0); Mean Corpuscular Volume 78.6 fL (81-99); Mean Platelet Vol. 11.1 fl (6.2-12.0); Platelet Count 289 K/mm3 (150-450); RBC Distribution Width CV 14.8 % (11.6-14.6); RBC Distribution Width SD 42.9 fl (35.1-43.9); Red Blood Count 4.73 M/mm3 (4.2-5.4); White Blood Count 12.9 K/mm3 (4.4-11.0)
[2018-02-09 16:18] LABS: Scan Indicated on CBC? Y/N NO
== END ==
PROVIDERS: Visit Provider Obstetrics & Gynecology
DX: Z34.82 Encounter for supervision of other normal pregnancy, second trimester (principal)
CPT/HCPCS: 36415; 82950; 85027

== ENCOUNTER → 2018-03-30 17:28 | Outpatient (CLI) | payer OTHER, MEDICAID, SELFPAY | PROVIDERS: Referring Provider Obstetrics & Gynecology; Visit Provider Obstetrics & Gynecology | DX: Z36.85 Encounter for antenatal screening for Streptococcus B (principal) | CPT/HCPCS: 87081 ==

== ENCOUNTER 2018-04-11 22:13 | Outpatient (CLI) | payer OTHER, MEDICAID, SELFPAY ==
[2018-04-11 22:51] VITALS: BMI 58.5
[2018-04-12 00:09] LABS: Bacteria 0 SEEN /hpf (None Seen); Mucous, Urine 0 SEEN /hpf (<or=2+); White Blood Cells 0 SEEN /hpf (0-5)
[2018-04-12 00:13] LABS: Color, Urine Yellow (Yellow); Glucose, Dipstick Normal (Normal); Ketone-Dipstick 15 mg/dl (Negative); Leukocyte Esterase-Dipstick Negative /ul (Negative); Nitrite-Dipstick Negative (Negative); Occult Blood-Urine 25 /ul (Negative); Protein-Dipstick 15 mg/dl (Negative); Specific Gravity, Urine 1.015 (1.002-1.030); Urine Bilirubin Dipstick Negative (Negative); Urine Clarity Sl. Cloudy (Clear); Urine Urobilinogen 1 mg/dl (Normal); Urine pH 6.5 (5.0 - 8.0)
[2018-04-12 00:22] LABS: Red Blood Cells-Urine 0-5 SEEN /hpf (0-5); Squamous Epithelial Cells - UA 5-10 SEEN /hpf (5-10)
--- NOTE | 2018-04-16 09:59 | OB.TRI.NOTE ---
History of Present Illness Reason For Visit: DECREASED MOVEMENT Date of Service: 04/11/18 Final LANIE: 04/29/18 Final LANIE Source: US <20 weeks Gestational age: 38 Weeks and 1 Days History of Present Illness: 37-week intrauterine presents with decreased movement. Allergies No Known Allergies Allergy (Verified 04/11/18 22:53) Laboratory Studies: Laboratory Tests 04/12/18 Range/Units 00:02 Urine Color Yellow (Yellow) Urine Clarity Sl. Cloudy (Clear) Urine pH 6.5 (5.0 - 8.0) Ur Specific [place] 1.015 (1.002-1.030) Urine Protein 15 H (Negative) mg/dl Urine Glucose (UA) Normal (Normal) mg/dl Urine Ketones 15 H (Negative) mg/dl Urine Occult Blood 25 H (Negative) /ul Urine Nitrite Negative (Negative) Urine Bilirubin Negative (Negative) mg/dL Urine Urobilinogen 1 H (Normal) mg/dl Ur Leukocyte Esterase Negative (Negative) /ul Urine RBC 0-5 SEEN (0-5) /hpf Urine WBC 0 SEEN (0-5) /hpf Ur Squamous Epith Cells 5-10 SEEN (5-10) /hpf Urine Bacteria 0 SEEN (None Seen) /hpf Urine Mucus 0 SEEN (<or=2+) /hpf NST - FHR Rate Baby A NST Reactive:: Yes FHR Category:: Category I Impression/Plan 37+ week intrauterine with decreased movement. Reactive nonstress test. Released to home with routine instructions.
== END 2018-04-12 | disposition home or self-care (01) ==
LOC: WPOUT 22:22 → OBT 22:25
PROVIDERS: Referring Provider Obstetrics & Gynecology; Visit Provider Obstetrics & Gynecology
DX: O36.8130 Decreased fetal movements, third trimester, not applicable or unspecified (principal); Z3A.37 37 weeks gestation of pregnancy
CPT/HCPCS: 59025; 59050; 81001; 87086; 87088; 99218; G0378

== ENCOUNTER 2018-05-03 08:29 | Inpatient (IN) | payer OTHER, MEDICAID, SELFPAY ==
[2018-05-03 08:36] VITALS: BMI 58.5
[2018-05-03] MEDS: Lactated Ringers 1,000 ML 50 ML IV (08:50)
[2018-05-03 09:10] LABS: Hematocrit 37.3 % (37-47); Hemoglobin 11.5 g/dl (12.0-15.0); Mean Corp Hgb Conc 30.8 g/gl (32-36); Mean Corpuscular Hgb 23.6 pg (27.0-32.0); Mean Corpuscular Volume 76.4 fL (81-99); Mean Platelet Vol. 11.2 fl (6.2-12.0); Platelet Count 290 K/mm3 (150-450); RBC Distribution Width CV 15.1 % (11.6-14.6); RBC Distribution Width SD 42.3 fl (35.1-43.9); Red Blood Count 4.88 M/mm3 (4.2-5.4); Scan Indicated on CBC? Y/N NO; White Blood Count 13.9 K/mm3 (4.4-11.0)
[2018-05-03] MEDS: Nalbuphine 10 MG/ML Ampul IV (09:25)
[2018-05-03] MEDS: Oxytocin 30 units/NS 500 ml 30 UNITS/500 ML IV.SOLN 334 UNITS IV (12:46)
--- NOTE | 2018-05-03 12:59 | PCM.PN.BLA ---
Progress Note 40 3/7 wk Labor Using Nitrous, declined epidural and other meds. AVSS CX 8 cm/90/-2 Began pushing involuntarily. Category I tracing
--- NOTE | 2018-05-03 13:01 | PCM.OB.VAG ---
Vaginal Delivery Maternal Presentation: Active Labor 40 3/7 wk presents in labor. ? time of SROM Amniotic Membrane Rupture Type: Spontaneous at home Amniotic Fluid Description: Clear Final LANIE: 04/30/18 Final LANIE Source: US <20 weeks Gestational age: 40 Weeks and 3 Days Date of Procedure: 05/03/18 Pre-Operative Diagnosis: 40 3/7 wk labor Post-Operative Diagnosis: same Surgery/ Procedure Performed: Spontaneous Vaginal Delivery Type of Anesthesia: - - nitrous, no anesthesia Description of Procedure: Involuntary pushing at 8 cm resulted in of a doyle viable female onto intact bed. Head delivered BRAYDEN. No nuchal cord, shoulders delivered immediately afterwards. No cord blood collected. Vigorous crying infant to maternal abdomen. Cord clamped x two and cut. Ap 8/ PP exam no lacerations Placenta delivered by spont expulsion Ray Kathy counts correct times two EBL 350 cc Pt and tolerated delivery well To recovery, stable condition. Presentation: Vertex, LUIS ARMANDO Placental Delivery Description: Spontaneous, Expressed Placenta Disposition: [facility] Cord Vessel Description: 3 Vessels Cord Entanglement: None Drain: - - none voiding with pushing Estimated Blood Loss: 350 Infant A gender: Female (1 minute): 8 (5 minute): 8 Episiotomy Description: None Laceration: None Medications given after delivery: IV Pitocin Complications: None
--- NOTE | 2018-05-03 13:05 | PCM.DCVAG ---
Discharge Diet: No Restrictions Discharge Activity: May Shower, May Take a Tub Bath May resume sexual activity in: 4-6 weeks Additional Activity Instructions:: Nothing in the vagina for 4-6 weeks. You may return to work/school in 6 weeks. Additional Instructions: If you experience any of the following, contact your healthcare provider. Bleeding that soaks a pad every hour for 2 hours Fever 100.4 or higher Unrelieved abdominal pain Problems urinating (including inability to urinate or burning while urinating). Visual changes Severe headache Flu-like symptoms Pain or redness in one of both of your breasts Pain, warmth, tenderness or swelling in your legs, especially the calf area Frequent nausea and vomiting Symptoms of depression or anxiety If you experience any of the following, call 911 or go to the nearest Emergency Room. Chest pain Problems breathing Seizure activity Partial or complete paralysis of a body part, slurred speech, weakness or drooping of the face, or a sudden inability to walk or hold your balance Allergies/Adverse Reactions: Allergies No Known Allergies Allergy (Verified 05/03/18 08:45) Medications to take at Discharge Vits [Prenatabs FA ] 1 tablet PO DAILY 04/24/15 Please Follow Up With: Memo Brewer MD - [phone] When: Call to make an appointment with your doctor in 6 weeks. If you had elevated Blood Pressure or 4th degree laceration you will need to be seen in 2 weeks. Test Results: Test results from this visit will be discussed in further detail at your follow-up appointment, if applicable. Proposed Discharge Date: 05/05/18
--- NOTE | 2018-05-03 13:06 | DCINST_ITS ---
Discharge Diet: No Restrictions Discharge Activity: May Shower, May Take a Tub Bath May resume sexual activity in: 4-6 weeks Additional Activity Instructions:: Nothing in the vagina for 4-6 weeks. You may return to work/school in 6 weeks. Additional Instructions: If you experience any of the following, contact your healthcare provider. * Bleeding that soaks a pad every hour for 2 hours * Fever 100.4 or higher * Unrelieved abdominal pain * Problems urinating (including inability to urinate or burning while urinating). * Visual changes * Severe headache * Flu-like symptoms * Pain or redness in one of both of your breasts * Pain, warmth, tenderness or swelling in your legs, especially the calf area * Frequent nausea and vomiting * Symptoms of depression or anxiety If you experience any of the following, call 911 or go to the nearest Emergency Room. * Chest pain * Problems breathing * Seizure activity * Partial or complete paralysis of a body part, slurred speech, weakness or drooping of the face, or a sudden inability to walk or hold your balance Allergies/Adverse Reactions: Allergies No Known Allergies Allergy (Verified 05/03/18 08:45) Medications to take at Discharge Vits [Prenatabs FA ] 1 tablet PO DAILY 04/24/15 Please Follow Up With: Memo Brewer MD - [phone] When: Call to make an appointment with your doctor in 6 weeks. If you had elevated Blood Pressure or 4th degree laceration you will need to be seen in 2 weeks. Test Results: Test results from this visit will be discussed in further detail at your follow- up appointment, if applicable. Proposed Discharge Date: 05/05/18
[2018-05-03] MEDS: Oxytocin 30 units/NS 500 ml 30 UNITS/500 ML IV.SOLN 167 UNITS IV (13:16)
[2018-05-03 16:15] VITALS: BP 116/68; PULSE 69; RESP 18; TEMP 36.2
[2018-05-03 19:30] VITALS: BP 133/61; PULSE 76; RESP 18; TEMP 36.1
[2018-05-04] VITALS: BP 130/70; PULSE 66; RESP 18; TEMP 36.1
[2018-05-04] MEDS: Acetaminophen 500 MG Tablet 1000 MG PO (00:37)
[2018-05-04 03:45] VITALS: BP 114/62; PULSE 71; RESP 18; TEMP 36.2
--- NOTE | 2018-05-04 08:31 | PCM.PN.OB ---
Subjective: PPD#1 Doing well. Minimal pain. baby is nursing well. No concerns voiced. GBS testing was neg in . Discussed possible dischg home today. Objective: Sitting up in bed, nursing. NAD - Physical Exam General: Alert, Oriented x3, Cooperative, No apparent distress HEENT: Atraumatic Neck: Supple Psych/Mental Status: Normal Affect Vital Signs Temp Pulse Resp BP 97.1 F L 71 18 114/62 05/04/18 03:45 05/04/18 03:45 05/04/18 03:45 05/04/18 03:45 Oxygen Delivery Method Room Air Weight: 159.6 kg Body Mass Index (BMI) 58.5 Intake and Output for Last 24 Hours 05/02/18 05/03/18 05/04/18 23:59 23:59 23:59 Output Total 100 / 100 200 / 200 Balance -100 / -100 -200 / -200 Laboratory Tests Past 24 Hrs 05/03/18 05/03/18 08:58 08:58 WBC 13.9 H RBC 4.88 Hgb 11.5 L Hct 37.3 MCV 76.4 L MCH 23.6 L MCHC 30.8 L RDW 15.1 H RDW Differential 42.3 Plt Count 290 MPV 11.2 Blood Type B POSITIVE Antibody Screen NEGATIVE Medical Necessity - Tobacco Use Smoking Status: Never smoker Assessment/Plan All Active Problems Post-dates (Acute) PPD#1 Stable pp. Continue routine care. Potential dischg later today if baby is released. Encouraged her to discuss with Distribution Coordinator if she elects dischg today
[2018-05-04 08:48] VITALS: BP 125/70; PULSE 78; RESP 20; TEMP 36.2
[2018-05-04 14:00] VITALS: BP 128/75; PULSE 84; RESP 18; TEMP 36.6
[2018-05-04 19:40] VITALS: BP 142/70; PULSE 87; RESP 20; TEMP 36.4
[2018-05-05 02:00] VITALS: BP 118/62; PULSE 78; RESP 18; TEMP 36.4
[2018-05-05 07:54] VITALS: BP 115/64; PULSE 80; RESP 16; TEMP 36.1; O2SAT 99
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
--- NOTE | 2018-05-05 10:45 | PCM.PN.OB ---
Subjective: No complaints. Feels well. Denies heavy lochia. Infant is nursing well. Objective: AVSS - Physical Exam General: Alert, Oriented x3, Cooperative, No apparent distress HEENT: Atraumatic, Normocephalic Lungs: Normal air movement Abdomen: Soft, Non Tender, Obese, - - Fundal exam limited by body habitus Extremities: No Calf Tenderness Neurological: Neuro grossly intact Psych/Mental Status: Normal Affect, Appropriate, Alert and oriented to time, place, person, mood and affect Vital Signs Temp Pulse Resp BP Pulse Ox 97.0 F L 80 16 115/64 99 05/05/18 07:54 05/05/18 07:54 05/05/18 07:54 05/05/18 07:54 05/05/18 07:54 Oxygen Delivery Method Room Air Weight: 159.6 kg Body Mass Index (BMI) 58.5 Intake and Output for Last 24 Hours 05/03/18 05/04/18 05/05/18 23:59 23:59 23:59 Output Total 100 / 100 200 / 200 Balance -100 / -100 -200 / -200 Medical Necessity - Tobacco Use Smoking Status: Never smoker Assessment/Plan All Active Problems Post-dates (Acute) 22yo PPD#2 s/p doing well. -d/c home
== END 2018-05-05 11:00 | disposition home or self-care (01) | DRG 806 ==
LOC: WPOUT 08:31
PROVIDERS: Admitting Provider Obstetrics & Gynecology; Referring Provider Obstetrics & Gynecology; Visit Provider Obstetrics & Gynecology
DX: O42.02 Full-term premature rupture of membranes, onset of labor within 24 hours of rupture (principal); O36.0130 Maternal care for anti-D [Rh] antibodies, third trimester, not applicable or unspecified; Z37.0 Single live birth; Z3A.40 40 weeks gestation of pregnancy
CPT/HCPCS: 59025; 59050; 85027; 86850; 86900; 99218; J7120; G0378

== ENCOUNTER → 2020-07-03 | Outpatient (CLI) | payer MEDICAID, SELFPAY ==
[2020-07-08 17:16] LABS: HPV Reflexed? NOT INDICATED
== END | disposition home or self-care (01) ==
LOC: LABSPEC 16:17
PROVIDERS: Visit Provider Obstetrics & Gynecology
DX: Z12.4 Encounter for screening for malignant neoplasm of cervix (principal)
CPT/HCPCS: 88175; G0145

== ENCOUNTER → 2020-08-19 14:17 | Outpatient (CLI) | payer MEDICAID, SELFPAY ==
[2020-08-22 03:07] LABS: Chlamydia By Nucleic Acid AMP Negative (Negative)
[2020-08-22 13:59] LABS: Gonococcus By Nucleic Acid AMP Negative (Negative)
== END ==
PROVIDERS: Visit Provider Student in an Organized Health Care Education/Training Program
DX: Z11.3 Encounter for screening for infections with a predominantly sexual mode of transmission (principal)
CPT/HCPCS: 87491; 87591

== ENCOUNTER → 2020-08-27 10:21 | Outpatient (CLI) | payer MEDICAID, SELFPAY ==
[2020-08-27 11:21] LABS: Absolute Lymphocyte Count 1.94 X10^3/uL (0.83-4.51); Absolute Neutrophil Count 7.2 X10^3/uL (2.0-7.7); Basophil# 0.02 X10^3/uL; Basophil% 0.2 % (0-1); Eosinophil# 0.08 X10^3/uL; Eosinophils% 0.8 % (0-5); Hematocrit 39.1 % (37-47); Hemoglobin 11.9 g/dL (12.0-15.0); Lymphocyte # 1.94 X10^3/ul (0.83-4.51); Lymphocyte % 19.9 % (19-41); Mean Corp Hgb Conc 30.4 g/dL (32-36); Mean Corpuscular Hgb 22.8 pg (27.0-32.0); Mean Corpuscular Volume 74.8 fL (81-99); Mean Platelet Vol. 10.9 fl (6.2-12.0); Monocyte# 0.53 X10^3/uL; Monocyte% 5.4 % (0-10); NRBC Flagged by Analyzer 0 % (0-5); Neutrophil # 7.15 X10^3/uL (2.7-7.7); Neutrophil % 73.3 % (47-70); Platelet Count 372 K/mm3 (150-450); Red Blood Count 5.23 M/mm3 (4.2-5.4); White Blood Count 9.8 K/mm3 (4.4-11.0)
[2020-08-27 12:18] LABS: HIV - WCH Non-Reactive (Nonreactive); Hepatitis B Surface Antigen Non-Reactive (Nonreactive); Hepatitis C Antibody Non-Reactive (Nonreactive); Rubella IgG Reactive (Nonreactive); Syphilis Antibodies Non-reactive
== END ==
PROVIDERS: Visit Provider Obstetrics & Gynecology
DX: Z34.81 Encounter for supervision of other normal pregnancy, first trimester (principal)
CPT/HCPCS: 36415; 85025; 86703; 86762; 86780; 86803; 87077; 87086; 87088; 87186; 87340

== ENCOUNTER → 2020-09-19 16:24 | Outpatient (CLI) | payer MEDICAID, SELFPAY ==
[2020-09-19 17:49] LABS: Glucose Challenge Gest 1H 50g 108 mg/dL (70-140)
== END ==
PROVIDERS: Visit Provider Obstetrics & Gynecology
DX: Z34.82 Encounter for supervision of other normal pregnancy, second trimester (principal)
CPT/HCPCS: 36415; 82950

== ENCOUNTER → 2020-12-30 12:14 | Outpatient (CLI) | payer MEDICAID, SELFPAY ==
[2020-12-30 12:29] LABS: Hematocrit 34.2 % (37-47); Hemoglobin 10.4 g/dL (12.0-15.0); Mean Corp Hgb Conc 30.4 g/dL (32-36); Mean Corpuscular Volume 75.7 fL (81-99); Mean Platelet Vol. 11.2 fl (6.2-12.0); Platelet Count 333 K/mm3 (150-450); RBC Distribution Width SD 40.6 fl (35.1-43.9); Red Blood Count 4.52 M/mm3 (4.2-5.4); White Blood Count 13.9 K/mm3 (4.4-11.0)
[2020-12-30 12:43] LABS: Protein, Urine (Random) 17.5 mg/dL (<11.9); Protein:Creat Ratio 109 mg/g CRE (0-200)
[2020-12-30 13:04] LABS: ALB/GLOB Ratio 0.5 RATIO (0.9-2.4); AST(SGOT) 12 U/L (15-37); Alanine Aminotransfer ALT/SGPT 23 U/L (13-56); Albumin, Serum 2.6 g/dL (3.2-5.0); Alkaline Phosphatase 75 U/L (45-117); Anion Gap 7 (5-15); BUN 9 mg/dL (7-18); BUN/Creat Ratio 16.5 RATIO (10-20); Calcium,Total 8.4 mg/dL (8.5-10.1); Chloride 104 mmol/L (98-107); Creatinine, Serum 0.54 mg/dL (0.55-1.02); EST Glomerular Filtration Rate 144 mL/min (>60); Est Glom Filt Rate - Afr Amer 175 mL/min (>60); Globulin 4.9 g/dL (2.2-4.2); Glucose 82 mg/dL (74-106); LDH 180 U/L (84-246); Potassium 3.8 mmol/L (3.5-5.1); Protein, Total 7.5 g/dL (6.4-8.2); Sodium Level 136 mmol/L (136-145)
== END ==
PROVIDERS: Visit Provider Student in an Organized Health Care Education/Training Program
DX: O16.9 Unspecified maternal hypertension, unspecified trimester (principal); Z3A.00 Weeks of gestation of pregnancy not specified
CPT/HCPCS: 36415; 80053; 82570; 83615; 84156; 85027; 87086; 87088

== ENCOUNTER → 2021-01-02 15:10 | Outpatient (CLI) | payer MEDICAID, SELFPAY | PROVIDERS: Visit Provider Obstetrics & Gynecology | DX: Z34.83 Encounter for supervision of other normal pregnancy, third trimester (principal) | CPT/HCPCS: 87077; 87086; 87088; 87186 ==

== ENCOUNTER 2021-01-26 20:15 | Outpatient (CLI) | payer MEDICAID, SELFPAY ==
[2021-01-26 20:44] VITALS: O2SAT 83
[2021-01-26 20:45] VITALS: BP 123/70; PULSE 108; PULSE 99; O2SAT 97
[2021-01-26 20:46] VITALS: TEMP 36.8; O2SAT 97
[2021-01-26 20:58] VITALS: BMI 58.8
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
[2021-01-26] MEDS: Lactated Ringers 1,000 ML 999 ML IV (21:35)
[2021-01-26 22:00] LABS: Hematocrit 32.1 % (37-47); Hemoglobin 9.6 g/dL (12.0-15.0); Mean Corp Hgb Conc 29.9 g/dL (32-36); Mean Corpuscular Hgb 22.2 pg (27.0-32.0); Mean Corpuscular Volume 74.3 fL (81-99); Platelet Count 331 K/mm3 (150-450); RBC Distribution Width CV 15.2 % (11.6-14.6); RBC Distribution Width SD 40.9 fl (35.1-43.9); Red Blood Count 4.32 M/mm3 (4.2-5.4); White Blood Count 15.1 K/mm3 (4.4-11.0)
[2021-01-26 22:38] LABS: AST(SGOT) 13 U/L (15-37); Alanine Aminotransfer ALT/SGPT 29 U/L (13-56); Creatinine, Serum 0.64 mg/dL (0.55-1.02); EST Glomerular Filtration Rate 120 mL/min (>60); Est Glom Filt Rate - Afr Amer 145 mL/min (>60); Estimated Creatinine Clearance 125.79 ml/min; Uric Acid 4.9 mg/dL (2.6-6.0)
[2021-01-26 23:06] LABS: Protein, Urine (Random) 17.3 mg/dL (<11.9); Protein:Creat Ratio 135 mg/g CRE (0-200)
== END 2021-01-26 23:35 | disposition home or self-care (01) ==
LOC: WPOUT 20:26 → WP 20:27
PROVIDERS: Visit Provider Student in an Organized Health Care Education/Training Program
DX: O26.899 Other specified pregnancy related conditions, unspecified trimester (principal); R55 Syncope and collapse; Z3A.00 Weeks of gestation of pregnancy not specified
CPT/HCPCS: 96365; 36415; 59025; 59050; 82565; 82570; 84156; 84450; 84460; 84550; 85027; 99218; J7120; G0378

== ENCOUNTER 2021-02-07 17:26 | Emergency (ER) | payer MEDICAID, SELFPAY ==
[2021-02-07 17:27] VITALS: BP 121/71; PULSE 114; RESP 18; TEMP 36.4; O2SAT 97; BMI 58.1
--- NOTE | 2021-02-07 18:16 | EX.ED.DYSGE1 ---
HPI History of Present Illness Chief Complaint: General Illness Narrative Narrative: 25-year-old female presenting with cough and congestion. She states she is not having fevers or body aches. She reports that she was supposed to go to labor and delivery to be evaluated for things. She was then called and told to come to the emergency room for rapid Covid test before she comes. She is G9, P3 currently about 34 to 35 weeks. She is not having abdominal pain. She denies dysuria or hematuria. There is no constipation or diarrhea. PFSH PFSH Home Medications Prenatabs FA 1 tab PO DAILY 04/24/15 [History Last Taken 05/02/18 21:00] Allergy/AdvReac Type Severity Reaction Status Date / Time No Known Allergies Allergy Verified 02/07/21 17:29 Social History Smoking Status: Never smoker ROS ROS ED Constitutional Constitutional ED: Denies chills or fever(s) Eyes Eyes: Denies blurry vision or diplopia ENT ENT ED: Reports other Details: Nasal congestion Cardiovascular Cardiovascular: Denies chest pain Respiratory/Chest Respiratory/Chest: Reports cough; Denies sputum Gastrointestinal Gastrointestinal: Denies abdominal pain, nausea or vomiting Genitourinary Genitourinary ED: Denies dysuria or hematuria Musculoskeletal Musculoskeletal: Denies arthralgias or myalgias Integumentary Denies rash Neurologic Neurologic: Denies headache(s) or weakness EXAM Physical Exam Const Vital Signs: 02/07/21 17:27 Temperature 97.5 F L Temperature Source Temporal Pulse Rate 114 H Respiratory Rate 18 Blood Pressure 121/71 H Blood Pressure Mean 87 Pulse Ox 97 Oxygen Delivery Method Room Air Positive well nourished General Appearance ED: NAD; Negative for pallor HEENT Reports moist mucous membranes Negative for trauma Eyes PERRL and EOMs intact bilaterally Neck no lymphadenopathy and supple Resp normal respiratory effort and clear to auscultation bilaterally Cardio regular rhythm Rate: tachycardic Neuro oriented x3 and CN's II-XII intact bilaterally Sensorium / Orientation: alert Psych mental status grossly normal Skin General Skin Exam: Negative for jaundice or pallor MDM MDM MDM Narrative Medical decision making narrative: Patient has a cough and nasal congestion is requesting a rapid Covid swab so that she can go be evaluated by OB. Her rapid Covid is negative. Her lungs are clear to auscultation. Her pulse ox is 97% and her respiratory rate is 18. She is slightly tachycardic at 114. I do believe she safe for discharge and follow-up. She states he supposed to go over there tonight. Impression: 1 cough Discharge Plan Triage Chief Complaint: General Illness ED Provider: Duarte Meehan Dx/Rx/DC Orders Instructions: ED Cough Chronic Uncertain Cause Adult Prescriptions: No Action Prenatabs FA 1 TABLET tablet 1 tab PO DAILY RF: 0 Primary Care Provider: Starla Lane Referrals: Starla Lane, PAChelseaC [Primary Care Provider] - Disposition Disposition: Home, Self Care
[2021-02-07 18:36] VITALS: RESP 18
== END 2021-02-07 19:15 | disposition home or self-care (01) ==
PROVIDERS: Emergency Provider Student in an Organized Health Care Education/Training Program; PCP Family Medicine
DX: O26.893 Other specified pregnancy related conditions, third trimester (principal); R05.9 Cough, unspecified; R51.9 Headache, unspecified; Z3A.34 34 weeks gestation of pregnancy
CPT/HCPCS: 59025; 59050; 87077; 87086; 87088; 87186; 87426; 99218; 99282; G0378

== ENCOUNTER 2021-02-07 19:00 | Outpatient (CLI) | payer MEDICAID, SELFPAY ==
[2021-02-07 19:21] VITALS: BMI 60.3
[2021-02-07 19:25] VITALS: BP 125/72; PULSE 99; TEMP 36.3
[2021-02-07 19:45] VITALS: PULSE 96; O2SAT 98
--- NOTE | 2021-02-08 10:42 | OB.TRI.NOTE ---
HPI - General HPI Narrative SLIME SABA, is a 25 F who presents to labor and delivery at 34 weeks 2 days gestation with headache and swelling. Headache did not seem to go away at home with Tylenol but since she arrived in labor delivery it is much better. PFSH PFSH Home Medications Prenatabs FA 1 tab PO DAILY 04/24/15 [History Last Taken 02/07/21] Allergy/AdvReac Type Severity Reaction Status Date / Time No Known Allergies Allergy Verified 02/07/21 17:29 Social History Smoking Status: Never smoker History Elective abortions Hx Para 2 Spontaneous abortions Hx # Term Pregnancies Ectopic pregnancies Hx # Pregnancies Multiple births # of living children NST FHR Rate Baby A NST Reactive:: Yes FHR Category:: Category I Assessment & Plan (1) Headache in , antepartum: PLAN: 34+ week IUP with headache during . Headache improved after arriving to labor delivery. Edema appropriate for and no other PIH symptoms noted. Deep tendon reflexes normal. No epigastric tenderness. Sclera are normal. Reactive nonstress test. Will discharge to home with routine instructions.
== END 2021-02-07 20:07 | disposition home or self-care (01) ==
LOC: WPOUT 19:08 → WP 19:08
PROVIDERS: PCP Family Medicine; Visit Provider Obstetrics & Gynecology
DX: O26.893 Other specified pregnancy related conditions, third trimester (principal); R51.9 Headache, unspecified; Z3A.34 34 weeks gestation of pregnancy
CPT/HCPCS: 59025; 59050; 87077; 87086; 87088; 87186; 87426; 99218; 99282; G0378

== ENCOUNTER 2021-02-25 11:00 | Outpatient (CLI) | payer MEDICAID, SELFPAY | END 2021-02-25 23:59 | disposition short-term general hospital (02) | PROVIDERS: PCP Family Medicine; Visit Provider Obstetrics & Gynecology | DX: Z36.85 Encounter for antenatal screening for Streptococcus B (principal) | CPT/HCPCS: 87077; 87081; 87186 ==

== ENCOUNTER 2021-03-05 01:15 | Outpatient (CLI) | payer MEDICAID, SELFPAY ==
[2021-03-05 01:38] VITALS: TEMP 35.9
[2021-03-05 01:41] VITALS: BP 128/60; PULSE 85
[2021-03-05 01:51] VITALS: BMI 61.1
[2021-03-05 02:19] LABS: ROM Internal Control Test YES-OK TO RESULT pt. (Internal QC); ROM Patient Test Negative (Negative)
--- NOTE | 2021-03-05 07:25 | OB.TRI.NOTE ---
HPI - General HPI Narrative SLIME SABA, is a 25 F who presents with c/o leaking of vaginal fluid at 38 2/7 weeks gestation. PFSH PFSH Home Medications Prenatabs FA 1 tab PO DAILY 04/24/15 [History Last Taken 02/07/21] Allergy/AdvReac Type Severity Reaction Status Date / Time No Known Allergies Allergy Verified 03/05/21 01:52 Social History Smoking Status: Never smoker History Elective abortions Hx Para 2 Spontaneous abortions Hx # Term Pregnancies Ectopic pregnancies Hx # Pregnancies Multiple births # of living children NST FHR Rate Baby A Baseline: 130 Variability:: Moderate Accelerations:: 15 x 15 Decelerations:: None NST Reactive:: Yes FHR Category:: Category I Uterine Activity:: 0/10 Assessment & Plan (1) 38 weeks gestation of : PLAN: False labor ROM plus neg d/c home
== END 2021-03-05 23:59 | disposition home or self-care (01) ==
LOC: WPOUT 01:17 → WP 01:18
PROVIDERS: PCP Family Medicine; Visit Provider Obstetrics & Gynecology
DX: O47.1 False labor at or after 37 completed weeks of gestation (principal); Z3A.38 38 weeks gestation of pregnancy
CPT/HCPCS: 59025; 59050; 84112; 99218; G0378

== ENCOUNTER 2021-03-12 07:00 | Inpatient (IN) | payer MEDICAID, SELFPAY ==
[2021-03-12] VITALS (32 sets, daily range): BP systolic 107–143; BP diastolic 52–89; PULSE 68–221; TEMP 36–36.8; O2SAT 83–100; BMI 62.4
--- NOTE | 2021-03-12 07:19 | PCM.HP.BLA ---
History and Physical Date of Admission: 03/12/21 ACOG ANTEPARTUM RECORD - HISTORY AND PHYSICAL (03/12/2021) Name: SLIME SABA History of this : This is a 25 year old [id number] presents at 39 wks + 2 days gestation for elective induction. OB Physician: Memo Brewer MD [place]'s Physician: Zakia Lane ...................................................................... : 1995 Age: 25 Address: [address] [place] [address] Phone: H) [phone] Insurance Carrier: [employer] [id number] Emergency Contact: EVA AGEE/JULIANNE [phone] ...................................................................... Final LANIE: 03/17/21 By Ultrasound: 11 weeks 1 day PARITY: (G-Total Pregnancies P-Fullterm,Premature,Induced AB,Spont AB, Ectopics, Multiple,Living) LANIE CONFIRMATION: By LMP: 03/26/20 Initial Exam: 04/20/18 By First Ultrasound Exam: 03/17/21 Final LANIE: 03/17/21 OB PROBLEM LIST: GBS positive in 2016. Allergic to cocoa and products w cocoa butter= cause hives. Poor experience w prev epidurals. Does NOT want epidural even offered! 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 NIPT negative RPL, consider progesterone vaginally UTI history ALLERGIES: NKDA MEDICATIONS: cephalexin 500 mg capsule 1 PO TID for 7 days then 1 po daily through remainder of Macrobid 100 mg capsule 1 PO BID DHA 200 mg capsule ONe capsule by mouth once daily SOCIAL HISTORY: Smoking - Never Alcohol Use - denies drinking Diet - needs improvement, LACTOSE FREE, Drinks sweet tea daily 2+ glasses and water intake tries 2-3 bottles daily. Lifestyle - moderate stress lifestyle and single Exercise - active work and Enc to walk 20 min daily. 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 Illicit Drug Use - denies use of street drugs Sexual Activity - [employer]IVE [employer]NER Residence - owns a home Place of - [place], [place] Hours Worked - 40 hours per week Spouse-Sig Other Name - Dano Orellana Spouse-Sig Other Occupation - Paper Plant Chemical Pathologist Spouse-Sig Other Phone No - [phone] Children Name(s) - Alvarez(JW '14) Guido (16),Sandra (19) PRIOR DELIVERY HISTORY DEL DATE GEST LAB WT LB WT OZ TYPE ANES LABOR TX Feb 10 6 0 0 0 Tab None No Apr 14 7 0 0 0 Sab None No Mar 08 6 0 0 0 Sab Epidural No Mar 10 6 0 0 0 Sab None No May 07 41 9 7 4 Vag Epidural No Jun 05 40 36 8 2 Vag Epidural No May 10 41 6 6 12 Vag None yes ANTEPARTUM FLOW CHART VISIT GE RTC FU F F MN U U DATE WK MD WKS HT PN HR M SS BP ED WT MN GL D EF ST __ ____ ___ __ __ ___ __ __ __ ___ __ __ __ ___ __ 18 Feb JMW 6 38 V + + 136/86 sl 384 tr - 3 65 -2 11 Feb JMW 1 38 V + + 136/88 1+ 343 tr - 04 Feb JMW 1 37 V + + 132/82 sl 342 tr - 2 50 hi 07 Jan JMW 2 33 + + 130/76 sl 328 tr 1+ Dec JMW 3 31 + + 126/84 sl 340 1+ - 11 Jan 20 JM 2 29 - + + 132/68 sl 356 1 08 Jan 20 CM 2 on + 125/90 sl 360 - - 0 02 Jan 19 JMW 3 28 + + 122/80 sl 323 tr - 14 Nov 12 JMW 6 21 + + 113/78 sl 319 tr - 16 Oct 08 JM 4 17 - + O 110/70 0 343 - - Sep 03 JM 4 13 - + 124/86 0 346 ne ne 06 Aug 0 JM 2 11 - on US 126/82 0 344 tr - ANTEPARTUM NOTE(S): Mar 11 2021: Ctxs-occas, Requesting to be checked, Mar 04 2021: Continues with congestion/cough, Mild Ctxs Feb 25 2021: Questionsble decreased FM,GBS Today,LARC signed Jan 28 2021: Continues to be crampy,Reminded to drink Jan 14 2021: Currently taking antibiotic for UTI Jan 02 2021: f/u from ER Dec 30 2020: Dec 24 2020: CBC,OGCT Today,Good FM Nov 05 2020: Good FM,Round Ligament Pains Periodically Oct 07 2020: some headaches Sep 09 2020: Aug 27 2020: Daily Nausea,Sono Today COMPREHENSIVE ANTEPARTUM NOTE(S): Mar 11 2021: Slime presents here today for PNV and scheduled for Induction at 0700 03/12/21, spoke with Zakia DARDEN at . Questions answered and consents signed. CRISTOPHER Mar 07 2021: H taken to OB. tkg Jan 14 2021: Slime presents here today for PNV reporting that yesterday she had palpitations not of the day and into the early night. Denies same for today. Adds that she started Cephalexin 500 mg qid 2 days ago for UTI and encouragement given to drink more water as dehydration can cause these same symptoms. Good FM and denies other concerns at this time. CRISTOPHER Jan 02 2021: 29wk, add-on visit for cramping bleeding. Seen at [facility], diagnosed with rectal bleeding. Exam today benign, no signs of vaginal bleeding, cervix 1//h. Ultrasound today baby AGA. All reassuring. Sent urine for culture. Educated patient on results. JM Jan 02 2021: Went to ER with complaint of rectal bleeding. All rectal bleeding has cleared at this time. ER recommended she f/u after her delivery with GI doctor. She has been experiencing increased cramping and what she feels are ash ball. Had a +FFN in the ER. Urine dip shows 1+ protein,, ph 5, blood small, sp gr 1.025, mod ketones. Urine will be sent culture. LMT Dec 30 2020: Slime is here following a call to Triage at 29 w. gest. Has had cramping q 7-10 m since 0400 today. Since Wednesday noted urine to be darker in color and it has a heavy smell. No dysuria, urgency or frequency. She's had some N over the weekend and just hasn't felt well. No fever at home. T 97.9 po. Has had one UTI during this . Clean catch mid steam urine explained and obtained by Dec 30 2020: 29/0w OB ACUTE. Reports cramping today. No LOF, VB. +FM. Long dip urine neg. SSE neg. CE cl/th/high. Not in labor. AYAH/HR completed as weight discrepancies noted - likely scale error and difference between here and [place] office. AYAH wnl. Diastolic BP slightly elevated - Labs drawn wnl. asymptomatic. F/u at scheduled visit. Labor precautions discussed extensively. cm Dec 24 2020: Labs drawn x 1 attempt from Rt ac with 23g butterfly patient tolerated well site without compromise. jlb Oct 07 2020: Slime is here for visit. She is having some headaches. Tylenol does not always help. Could add nightly Magnesium to see if this helps. Call for Fioricet Rx if worsens. Comp u/s scheduled next week with MFM,. Not feeling mvmt yet. Early GCT completed. LMT Oct 07 2020: 17 weeks, for anatomy ultrasound with MFM next week. Early 1 hour GTT within normal limits. Will repeat 1 hour GTT at 24 to 28 weeks. REVA Sep 09 2020: Slime is here for PNV. Feeling well and eating without difficulty. Able to take in fluids but not drinking enough. Encouraged 1 gal water/day. No edema noted today. Voices no concerns. Urine neg/neg. LSS Sep 09 2020: 13 weeks, ultrasound last visit here showed possible gastroschisis or omphalocele. Seen by MFM, ultrasound with MFM showed no abdominal wall defect possibly physiologic hernia seen at our ultrasound. NIPT negative, male. Class III obesity, given early 1 hour GTT to do this week. REVA Aug 28 2020: NOB TELEHEALTH VISIT, 35 MINUTE DURATION. Slime is a 24 year old A5 L3 with an LANIE of 03/17/2021, current GA is 11 w 2 d. She resides with her three children, in a single family dwelling. New FOB, Dano Esteban, may be moving in with her. This is Dano's first baby, and Slime states that he is supportive and happy about the . She will have a MFM consult due to ultrasound find Aug 27 2020: 11wk, with u/s today with FINAL LANIE: 03/17/21 by 11wk u/s. U/s findings of what appears to be suspicious for gastroschisis. Educated pt on finding and risk for genetic abnormalities including post care for gastroschisis vs omphalocele. Pt states understanding and agrees to NIPT testing today. MFM consult placed. For PNP today. Will schedule early 1hr GTT next visit. REVA Aug 19 2020: Slime is a 24 yr old Gr 9, SAB 4, EAB 1, P3 here w/new FOB Dano Orellana for Missed Menses. Dano is the FOB of most recent SAB 03/26/20. All other pregnancies by 1st FOB. Slime had no period after SAB in March. Was in for visit to see Dr. Brewer 07/03 and was given Rx Sprintec. Started Sprintec on 07/06 and took this thru 07/13; she stopped d/t feeling nausea; suspected . Home pregn REVIEW OF SYSTEMS: GENERAL - Denies fever, or chills SKIN - Denies rash, new skin lesions, or change in moles EYES - Denies blurred vision, or change in visual acuity EARS - Denies ear pain, or difficulty hearing NOSE - Denies nasal congestion, discharge, or bleeding MOUTH - Denies sore throat, or difficulty swallowing NECK - Denies pain or swelling RESPIRATORY - Denies shortness of breath, cough, wheezing CARDIOVASCULAR - Denies palpitations, chest pain, orthopnea, PND, peripheral edema, syncope or claudication GASTROINTESTINAL - Denies nausea, vomiting, diarrhea, constipation, Denies abdominal pain, melena and or bright red blood GENITOURINARY - Denies dysuria, frequency of urination, urgency, or hesitancy MUSCULOSKELETAL - Denies joint or muscle pain, or back pain NEUROLOGICAL - Denies localized numbness, weakness, or tingling PSYCHIATRIC - Denies depression, anxiety, substance abuse or suicide attempts ENDOCRINE - Denies heat or cold intolerance, weight loss or gain, increasing thirst HEMATO-IMMUNOLOGIC - Denies easy bruising, bleeding, oral ulcerations or recurrent infections GENETICS SCREENING: Age 35+ years: No Thalassemia: No Neural Tube Defect: No Down Syndrome: No DEMETRIUS-SACHS: No Sickle Cell Disease: No Hemophilia: No Musc. Dystrophy: No Cystic Fibrosis: No-declines screening Nate Chorea: No Mental Retardation: No Fragile X: No Other genetic: No Other defects: No SABs/still births: No Drugs since LMP: No INFECTION HISTORY: High risk AIDS: No High risk Hepatitis: No Exposed to TB: No Exposed to Herpes: No Rash/viral illness since LMP: No History of STD: No MENSTRUAL HISTORY: *Menses Amount/Duration: normal amountMenses Regularity: RegularFrequency: monthlyMenarche (Age Onset): 12* PAST SUMMARY: PARITY: 1. Total Pregnancies............ 9 2. Full Term Pregnancies........ 3 3. Premature.................... 0 4. Abortions - Induced.......... 1 5. Abortions - Spontaneous...... 4 6. Ectopics..................... 0 7. Multiple Births.............. 0 8. Living Children.............. 3 PAST #1: Date of :.................. 06/02/13 Gestation Weeks:................ 40 Length of labor(hours):......... 36 Sex:............................ M Weight-lbs:............... 8 Weight-oz:................ 2 Type of Delivery:............... Vag Type of Anesthesia:............. Epidural Place of Delivery:.............. [place] Treatment of Labor?:.... No Comment: PAST #2: Date of :.................. 02/22/14 Gestation Weeks:................ 6 Length of labor(hours):......... 0 Sex:............................ Weight-lbs:............... 0 Weight-oz:................ 0 Type of Delivery:............... Sab Type of Anesthesia:............. Epidural Place of Delivery:.............. [place] Treatment of Labor?:.... No Comment: PAST #3: Date of :.................. 04/24/15 Gestation Weeks:................ 41 Length of labor(hours):......... 9 Sex:............................ M Weight-lbs:............... 7 Weight-oz:................ 4 Type of Delivery:............... Vag Type of Anesthesia:............. Epidural Place of Delivery:.............. [place] Treatment of Labor?:.... No Comment: DEPRESSION THRU PG. PAST #4: Date of :.................. 02/23/16 Gestation Weeks:................ 6 Length of labor(hours):......... 0 Sex:............................ Weight-lbs:............... 0 Weight-oz:................ 0 Type of Delivery:............... Sab Type of Anesthesia:............. None Place of Delivery:.............. none Treatment of Labor?:.... No Comment: DATE APPROX PAST #5: Date of :.................. 05/03/18 Gestation Weeks:................ 41 Length of labor(hours):......... 6 Sex:............................ F Weight-lbs:............... 6 Weight-oz:................ 12 Type of Delivery:............... Vag Type of Anesthesia:............. None Place of Delivery:.............. [place] Treatment of Labor?:.... yes Comment: PP ANXIETY - ZOLOFT PAST #6: Date of :.................. 01/23/20 Gestation Weeks:................ 6 Length of labor(hours):......... 0 Sex:............................ Weight-lbs:............... 0 Weight-oz:................ 0 Type of Delivery:............... Tab Type of Anesthesia:............. None Place of Delivery:.............. none Treatment of Labor?:.... No Comment: MISOPROSTAL PAST #7: Date of :.................. 03/25/20 Gestation Weeks:................ 7 Length of labor(hours):......... 0 Sex:............................ Weight-lbs:............... 0 Weight-oz:................ 0 Type of Delivery:............... Sab Type of Anesthesia:............. None Place of Delivery:.............. none Treatment of Labor?:.... No Comment: DATE APPROX PHYSICAL EXAMINATION General Appearence: 25 yo female in no acute distress Vital Signs: AF, VSS Heart: RRR without rubs or gallops Lungs: CTA x 2 Breasts: deferred Abdomen: gravid Pelvis: Cervix: Presentation: cephalic Station: Fetus: Size: AGA Movement: present Heart: present LAB TEST(S) ORDERED SINCE:06/20/20 02/09/2021 URINE CULTURE 01/26/2021 URIC ACID 01/26/2021 SERUM CREATININE AND GFR 01/26/2021 PROTEIN+CREATININE RATIO,URINE 01/26/2021 CBC-COMPLETE BLOOD CNT NO DIFF 01/26/2021 AST(SGOT) 01/26/2021 ALANINE AMINOTRANSFERAS (SGPT) 01/05/2021 URINE CULTURE 12/31/2020 URINE CULTURE 12/30/2020 PROTEIN+CREATININE RATIO,URINE 12/30/2020 LDH 12/30/2020 COMPREHENSIVE METABOLIC PROFIL 12/30/2020 CBC-COMPLETE BLOOD CNT NO DIFF 12/24/2020 GLUCOSE CHALLENGE 50GM 1 HOUR 12/24/2020 CBC + DIFF 09/19/2020 GLUCOSE CHALLENGE GEST 1H 50G 09/11/2020 MISCELLANEOUS LAB PROCEDURE 09/04/2020 [id number] PLUS CORE 08/29/2020 URINE CULTURE 08/27/2020 RUBELLA IGG 08/27/2020 T AND S-NO CHARGE W/PNP 08/27/2020 L509.8000 08/27/2020 HIV - [facility] 08/27/2020 HEPATITIS C ANTIBODY 08/27/2020 HEPATITIS B SURFACE ANTIGEN 08/27/2020 CBC W/DIFF, AUTOMATED 08/22/2020 CHLAMYDIA/GC [place] APTIMA 07/08/2020 PAP IG W/REFLEX HR HPV APTIMA 03/05/2021 RULE OUT BETA STREP (GRP. B) 03/05/2021 (ROM) RUPTURE OF MEMBRANES == ==== Order Observation Description Value Ref_Range A* Site == ==== (ROM) RUPTURE O NOTE S[facility]O (ROM) RUPTURE O ROM Negative Negative ML Amniotic fluid not present indicates No Rupture of Membranes at time of specimen collection. RULE OUT BETA S NOTE [facility] URINE CULTURE NOTE [facility] PROTEIN+CREATIN NOTE [facility] PROTEIN+CREATIN UR CREAT 128.00 mg/dL NO RANGE EST. ML PROTEIN+CREATIN PROTEIN,UR.RAN. 17.3 mg/dL <11.9 H ML PROTEIN+CREATIN PROT:CRE RATIO 135 mg/g CRE 0-200 ML ALANINE AMINOTR NOTE [facility] ALANINE AMINOTR ALT 29 U/L 13-56 ML URIC ACID NOTE [facility] URIC ACID URIC 4.9 mg/dL 2.6-6.0 ML The drugs N-Acetylcysteine and Metamizole may falsely depress this assay. AST(SGOT) NOTE SANTOYO AST(SGOT) AST 13 U/L 15-37 L ML SERUM CREATININ NOTE SATNOYO SERUM CREATININ CREAT,SERUM 0.64 mg/dL 0.55-1.02 ML The validity of the calculated GFR GFRAA in patients over 70 years has not been determined. Clinical correlation is essential. SERUM CREATININ EST GFR 120 mL/min >60 ML Non- GFR Calc SERUM CREATININ EST GFR - AA 145 mL/min >60 ML GFR Calc SERUM CREATININ ECRCL 125.79 ml/min ML CBC-COMPLETE BL NOTE S[facility]O CBC-COMPLETE BL WBC 15.1 K/mm3 4.4-11.0 H ML CBC-COMPLETE BL RBC 4.32 M/mm3 4.2-5.4 ML CBC-COMPLETE BL HGB 9.6 g/dL 12.0-15.0 L ML CBC-COMPLETE BL HCT 32.1 37-47 L ML CBC-COMPLETE BL MCV 74.3 fL 81-99 L ML CBC-COMPLETE BL MCH 22.2 pg 27.0-32.0 L ML CBC-COMPLETE BL MCHC 29.9 g/dL 32-36 L ML CBC-COMPLETE BL RDW CV 15.2 11.6-14.6 H ML CBC-COMPLETE BL RDW SD 40.9 fl 35.1-43.9 ML CBC-COMPLETE BL PLT 331 K/mm3 150-450 ML CBC-COMPLETE BL MPV 11.0 fl 6.2-12.0 ML URINE CULTURE NOTE S[facility]O URINE CULTURE NOTE [facility] LDH NOTE [facility] LDH LDH 180 U/L 84-246 ML COMPREHENSIVE M NOTE [facility] COMPREHENSIVE M GLU 82 mg/dL 74-106 ML Please note revised GLUCOSE reference range effective 03/26/2017. COMPREHENSIVE M BUN 9 mg/dL 7-18 ML COMPREHENSIVE M CREAT,SERUM 0.54 mg/dL 0.55-1.02 L ML The validity of the calculated GFR GFRAA in patients over 70 years has not been determined. Clinical correlation is essential. COMPREHENSIVE M EST GFR 144 mL/min >60 ML Non- GFR Calc COMPREHENSIVE M EST GFR - AA 175 mL/min >60 ML GFR Calc COMPREHENSIVE M BUN/CRE 16.5 RATIO 10-20 ML COMPREHENSIVE M T PROT 7.5 g/dL 6.4-8.2 ML COMPREHENSIVE M ALB 2.6 g/dL 3.2-5.0 L ML COMPREHENSIVE M GLOB 4.9 g/dL 2.2-4.2 H ML COMPREHENSIVE M A/G 0.5 RATIO 0.9-2.4 L ML COMPREHENSIVE M CA,TOTAL 8.4 mg/dL 8.5-10.1 L ML COMPREHENSIVE M AST 12 U/L 15-37 L ML COMPREHENSIVE M ALK P 75 U/L 45-117 ML COMPREHENSIVE M ALT 23 U/L 13-56 ML COMPREHENSIVE M T BILI 0.30 mg/dL 0.20-1.00 ML For patients on eltrombopag therapy, use of Dimension [place] TBIL is not recommended. COMPREHENSIVE M NA 136 mmol/L 136-145 ML COMPREHENSIVE M POTASSIUM 3.8 mmol/L 3.5-5.1 ML COMPREHENSIVE M CL 104 mmol/L 98-107 ML COMPREHENSIVE M CO2 25.0 mmol/L 21.0-32.0 ML COMPREHENSIVE M GAP 7 5-15 ML PROTEIN+CREATIN NOTE [facility] PROTEIN+CREATIN UR CREAT 160.00 mg/dL NO RANGE EST. ML PROTEIN+CREATIN PROTEIN,UR.RAN. 17.5 mg/dL <11.9 H ML PROTEIN+CREATIN PROT:CRE RATIO 109 mg/g CRE 0-200 ML CBC-COMPLETE BL NOTE S[place] CBC-COMPLETE BL WBC 13.9 K/mm3 4.4-11.0 H ML CBC-COMPLETE BL RBC 4.52 M/mm3 4.2-5.4 ML CBC-COMPLETE BL HGB 10.4 g/dL 12.0-15.0 L ML CBC-COMPLETE BL HCT 34.2 37-47 L ML CBC-COMPLETE BL MCV 75.7 fL 81-99 L ML CBC-COMPLETE BL MCH 23.0 pg 27.0-32.0 L ML CBC-COMPLETE BL MCHC 30.4 g/dL 32-36 L ML CBC-COMPLETE BL RDW CV 15.0 11.6-14.6 H ML CBC-COMPLETE BL RDW SD 40.6 fl 35.1-43.9 ML CBC-COMPLETE BL PLT 333 K/mm3 150-450 ML CBC-COMPLETE BL MPV 11.2 fl 6.2-12.0 ML GLUCOSE CHALLEN NOTE [facility] GLUCOSE CHALLEN GLUCOSE CHALLENGE 50GM 1 [facility] 50 GMS 1 HOUR GLUCOSE CHALLEN GLUCOSE 1HR 103 mg/dl 70 - 140 [facility] CBC + DIFF NOTE [facility] CBC + DIFF CBC + DIFF [facility] CBC-COMPLETE BLOOD COUNT CBC + DIFF WBC 12.4 x 10EE3/UL 4.5 - 10.8 H [facility] CBC + DIFF RBC 4.35 x 10EE6/UL 4.10 - 5.30 [facility] CBC + DIFF HEMOGLOBIN 10.2 g/dl 12.0 - 16.0 L [facility] CBC + DIFF HEMATOCRIT 31.2 % 34.0 - 46.0 L [facility] CBC + DIFF MCV 72 fl 80 - 99 L [facility] CBC + DIFF MCH 23 pg 27 - 33 L [facility] CBC + DIFF MCHC 33 X10 3 32 - 36 [facility] CBC + DIFF RDW/CV 14.9 % 12.0 - 15.6 [facility] CBC + DIFF PLATELET 349 x10EE3/UL 150 - 450 [facility] CBC + DIFF MPV 9.1 fl 6.6 - 10.5 [facility] AUT[facility] DIFFERENTIAL CBC + DIFF NEUT % 77.8 % 46.0 - 76.0 H [facility] CBC + DIFF LYMPH % 14.3 % 20.0 - 45.0 L [facility] CBC + DIFF MONOS % 6.5 % 0.0 - 10.0 [facility] CBC + DIFF EO % 1.0 % 0.0 - 7.0 [facility] CBC + DIFF BASO % 0.4 % 0.0 - 2.0 [facility] CBC + DIFF LYMPH # 1.80 x10EE3/UL 0.80 - 2.80 [facility] CBC + DIFF NEUT # 9.60 x10EE3/UL 1.50 - 7.10 H [facility] CBC + DIFF MONO # 0.80 x10EE3/UL 0.20 - 1.00 [facility] CBC + DIFF EO # 0.10 x10EE3/UL 0.00 - 0.50 [facility] CBC + DIFF BASO # 0.00 x10EE3/UL 0.00 - 0.10 [facility] CBC + DIFF MANUAL DIFF N/A [facility] CBC + DIFF MORPHOLOGY REVIEWED [facility] {CD] GLUCOSE CHALLEN NOTE [facility] GLUCOSE CHALLEN GLU GEST 50G 1H 108 mg/dL 70-140 ML MISCELLANEOUS L NOTE [facility] MISCELLANEOUS L MISC LAB TEST ML Sent directly to testing facility per ordering physician. @ 09/11/20 1428 [facility] URINE CULTURE NOTE [facility] HEPATITIS C ANT NOTE [facility] HEPATITIS C ANT HEPATITIS C AB Non-Reactive Nonreactive ML Non Reactive: < 0.8 Equivocal: >/= 0.8 to < 1.0 Reactive: >/= 1.0 The CDC recommends that a reactive/equivocal HCV antibody result be followed up by the HCV Nucleic Acid Amplification test (647798) HEPATITIS B LIANE NOTE [facility] HEPATITIS B LIANE HEP B SURF AG Non-Reactive Nonreactive ML HIV - WC NOTE [facility] HIV - [facility] HIV Non-Reactive Nonreactive ML L509.8000 NOTE [facility] L509.8000 SYPHILIS ABS Non-reactive ML RUBELLA IGG NOTE [facility] RUBELLA IGG RUBELLA IGG Reactive Nonreactive ML Antibody Results Interpretation of Immune Status Non Reactive Presumed Non-Immune Equivocal Equivocal Reactive Presumed Immune PN N [facility]~[address] [place], [address]~ T AND AB SCREEN GEL NEGATIVE ML CBC W/DIFF, AUT NOTE [facility] CBC W/DIFF, AUT WBC 9.8 K/mm3 4.4-11.0 ML CBC W/DIFF, AUT RBC 5.23 M/mm3 4.2-5.4 ML CBC W/DIFF, AUT HGB 11.9 g/dL 12.0-15.0 L ML CBC W/DIFF, AUT HCT 39.1 37-47 ML CBC W/DIFF, AUT MCV 74.8 fL 81-99 L ML CBC W/DIFF, AUT MCH 22.8 pg 27.0-32.0 L ML CBC W/DIFF, AUT MCHC 30.4 g/dL 32-36 L ML CBC W/DIFF, AUT RDW CV 16.0 11.6-14.6 H ML CBC W/DIFF, AUT RDW SD 43.0 fl 35.1-43.9 ML CBC W/DIFF, AUT PLT 372 K/mm3 150-450 ML CBC W/DIFF, AUT MPV 10.9 fl 6.2-12.0 ML CBC W/DIFF, AUT NEUT% 73.3 47-70 H ML CBC W/DIFF, AUT LY% 19.9 19-41 ML CBC W/DIFF, AUT MONO% 5.4 0-10 ML CBC W/DIFF, AUT EO% 0.8 0-5 ML CBC W/DIFF, AUT BASO% 0.2 0-1 ML CBC W/DIFF, AUT IG% 0.400 0.0-0.9 ML IG% - Immature Granulocytes (promyelocytes, myelocytes and metamyelocytes) > 1% indicates that a LEFT SHIFT is Present. CBC W/DIFF, AUT ABSOLUTE NEUT 7.2 X10 3/uL 2.0-7.7 ML CBC W/DIFF, AUT ABSOLUTE LYMPH 1.94 X10 3/uL 0.83-4.51 ML CBC W/DIFF, AUT NUCLEATED RBC 0 0-5 ML [id number] PLUS GESTATION Bain LC_SEQCA [id number] PLUS FRACTION 5% LC_SEQCA [id number] PLUS GESTATIONAL AGE > OR = 9 Yes LC_SEQCA [id number] PLUS TEST RESULT Negative LC_SEQCA [id number] PLUS MECHANICAL ENGINEERING LECTURER COMMENTS LC_SEQCA This specimen showed an expected representation of chromosome 21, 18 and 13 material. Clinical correlation is suggested. [id number] PLUS APPROVED BY LC_SEQCA Leonor Reis MD, Director, [employer] [id number] PLUS TRISOMY 21 (DOWN SYNDROM Negative LC_SEQCA [id number] PLUS TRISOMY 18 (GRIFFITHS SYND Negative LC_SEQCA [id number] PLUS TRISOMY 13 (PATAU SYNDRO Negative LC_SEQCA [id number] PLUS SEX LC_SEQCA Consistent with Male [id number] PLUS NEGATIVE PREDICTIVE VALU Note LC_SEQCA The Negative Predictive Value (NPV) for trisomy 21, 18, and 13 is greater than 99%. The NPV for SCA and ESS cannot be calculated as SCA and ESS are only reported when an abnormality is detected. [id number] PLUS POSITIVE PREDICTIVE VALU N/A LC_SEQCA [id number] PLUS ABOUT THE TEST LC_SEQCA The MaterniT(R) 21 PLUS laboratory-developed test (LDT) analyzes circulating cell-free DNA from a maternal blood sample. The test is indicated for use in women with increased risk for chromosomal aneuploidy. Validation data on twin pregnancies is limited and the ability of this test to detect aneuploidy in a triplet has not yet been validated. [id number] PLUS TEST METHOD LC_SEQCA Circulating cell-free DNA was purified from the plasma component of maternal blood. The extracted DNA was then converted into a genomic DNA library for aneuploidy analysis of chromosomes 21, 18, and 13 via next generation sequencing.[1] Optional findings based on the test order include sex chromosome aneuploidy (SCA)[2], and enhanced sequencing series (ESS)[3], which will only be reported on as an additional finding when an abnormality is detected. SCA testing includes information on X and Y representation, while ESS testing includes deletions in selected regions (22q, 15q, 11q, 8q, 5p, 4p, 1p) and trisomy of chromosomes 16 and 22. [id number] PLUS PERFORMANCE LC_SEQCA The performance characteristics of the MaterniT(R) 21 PLUS laboratory-developed test (LDT) have been determined in a clinical validation study with women at increased risk for chromosomal aneuploidy.[1],[2],[3],[4] [id number] PLUS PERFORMANCE CHARACTERIST Note LC_SEQCA ! Y-Chromosome ( Sex) ! Accuracy: 99.4% ! ! ! ! Region (associated syndrome) ! Est. Sens# ! Est. Spec ! ! ! ! Trisomy 21 (Down Syndrome) ! 99.1% ! 99.9% ! ! ! ! Trisomy 18 (Griffiths Syndrome) ! >99.9% ! 99.6% ! ! ! ! Trisomy 13 (Patau Syndrome) ! 91.7% ! 99.7% ! ! ! ! Sex Chromosome Aneuploidies## ! 96.2% ! 99.7% ! ! ! * As reported in [facility] database [email or web address] [[email or web address] Pickwick [email or web address]/search/ ] # Estimated Sensitivity. Sensitivity estimated across the observed size distribution of each syndrome [per [facility] nstd37] and across the range of fractions observed in routine clinical NIPT. Actual sensitivity can also be influenced by other factors such as the size of the event, total sequence counts, amplification bias, or sequence bias. ## Bain gestation only. [id number] PLUS LIMITATIONS OF THE TEST LC_SEQCA While the results of these tests are highly accurate, discordant results, including inaccurate sex prediction, may occur due to placental, maternal, or mosaicism or neoplasm; vanishing twin; prior maternal organ transplant; or other causes. Sex chromosomal aneuploidies are not reportable for known multiple gestations. These tests are screening tests and not diagnostic; they do not replace the accuracy and precision of diagnosis with CVS or amniocentesis. A patient with a positive test result should be referred for genetic counseling and offered invasive diagnosis for confirmation of test results.[5] A negative result does not ensure an unaffected nor does it exclude the possibility of other chromosomal abnormalities or defects which are not a part of these tests. An uninformative result may be reported, the causes of which may include, but are not limited to, insufficient sequencing coverage, noise or artifacts in the region, amplification or sequencing bias, or insufficient fraction. These tests are not intended to identify pregnancies at risk for neural tube defects or ventral wall defects. Testing for whole chromosome abnormalities (including sex chromosomes) and for subchromosomal abnormalities could lead to the potential discovery of both and maternal genomic abnormalities that could have major, minor, or no, clinical significance. Evaluating the significance of a positive or a non-reportable result may involve both invasive testing and additional studies on the mother. Such investigations may lead to a diagnosis of maternal chromosomal or subchromosomal abnormalities, which on occasion may be associated with benign or malignant maternal neoplasms. These tests may not accurately identify triploidy, balanced rearrangements, or the precise location of subchromosomal duplications or deletions; these may be detected by diagnosis with CVS or amniocentesis. The ability to report results may be impacted by maternal BMI, maternal weight, maternal systemic lupus erythematosus (SLE) and/or by certain pharmaceutical agents such as low molecular weight heparin (for example: Lovenox(R), Xaparin(R), Clexane(R) and Fragmin(R)). The results of this testing, including the benefits and limitations, should be discussed with a qualified healthcare provider. management decisions, including termination of the , should not be based on the results of these tests alone. The healthcare provider is responsible for the use of this information in the management of their patient. [id number] PLUS NOTE LC_SEQCA This test was developed and its performance characteristics determined by [facility]. It has not been cleared or approved by the Food and Drug Administration. This laboratory is certified under the Clinical Laboratory Improvement Amendments (CLIA) as qualified to perform high complexity clinical laboratory testing and accredited by the [employer] ([employer]). All previously submitted samples were used in generating the MaterniT(R) 21 PLUS result. If there is future clinical need for adding on MaterniT(R) GENOME testing, a redraw will need to be submitted at that time. [id number] PLUS REFERENCES LC_SEQCA 1. Le DE ANDA, et al. Madeline Med. 2012;14(3):296-305. 2. Johnnie FOOTE, et al. Prenat Diag. 2013;33(6):591-597. 3. Lit Aranda et al. Clin Chem. 2015 Apr;61(4):608-616. 4. Le DE ANDA, et al. Madeline Med. 2011;13(11):913-920. 5. ACOG/SMFM Joint Committee Opinion No. 545, Jan 2012. [id number] PLUS PDF . LC_SEQCA CHLAMYDIA/GC NA NOTE [facility] CHLAMYDIA/GC NA CHLAMY,NUC ACID Negative Negative [facility] CHLAMYDIA/GC NA GC BY NUC ACID Negative Negative [facility] Performed at: =[address], [place] [id number] Corner Bead Operator: Ese Pastor MD, Phone: [phone] PAP IG W/REFLEX NOTE [facility] PAP IG W/REFLEX DIAG Comment . [facility] NEGATIVE FOR INTRAEPITHELIAL LESION OR MALIGNANCY. PAP IG W/REFLEX ADEQ Comment . [facility] Satisfactory for evaluation. Endocervical and/or squamous metaplastic cells (endocervical component) are present. PAP IG W/REFLEX PERFORM Comment . [facility] [employer] [facility] This liquid based ThinPrep(R) pap test was screened with the use of an image guided system. PAP IG W/REFLEX COMM . . [facility] PAP IG W/REFLEX PAPSMR Comment . [facility] The Pap smear is a screening test designed to aid in the detection of premalignant and malignant conditions of the uterine cervix. It is not a diagnostic procedure and should not be used as the sole means of detecting cervical cancer. Both false-positive and false-negative reports do occur. PAP IG W/REFLEX HPV RFLX Comment . [facility] The HPV DNA reflex criteria were not met with this specimen result therefore, no HPV testing was performed. Performed at: [address] [id number] Corner Bead Operator: Ese Pastor MD, Phone: [phone] Streptococcus agalactiae (B) Amount Growth Growth Streptococcus agalactiae (B): REACTION Ampicillin <=0.25 Penicillin G <=0.06 S Ceftriaxone <=0.12 S Clindamycin >=1 R Clindamycin.induced NEG Linezolid <=2 S Vancomycin 0.5 S Escherichia coli [place] Count <FONT COLOR=#[id number] Escherichia coli: REACTION Ampicillin >=32 R Ampicillin+Sulbactam >=32 R Cefazolin <=4 S Cefepime <=0.12 S Ceftriaxone <=0.25 S Ciprofloxacin <=0.25 S Ertapenem <=0.12 S Beta lactamase.extended spectrum NEG Gentamicin <=1 S Imipenem <=0.25 S Levofloxacin <=0.12 S Nitrofurantoin <=16 S Piperacillin+Tazobactam <=4 S Tobramycin <=1 S Trimethoprim+Sulfamethoxazole <=20 S Escherichia coli [place] Count 25,000-50,000 Escherichia coli: REACTION Ampicillin 16 I Ampicillin+Sulbactam 4 S Cefazolin <=4 S Cefepime <=0.12 S Ceftriaxone <=0.25 S Ciprofloxacin 0.5 S Ertapenem <=0.12 S Beta lactamase.extended spectrum NEG Gentamicin >=16 R Imipenem <=0.25 S Levofloxacin 1 S Nitrofurantoin <=16 S Piperacillin+Tazobactam <=4 S Tobramycin 8 I Trimethoprim+Sulfamethoxazole <=20 S Mixed Gram Pos Gram Neg Org [place] Count 1000-10,000 MIXC Mixed contaminants. Submit a new specimen if indicated. Escherichia coli [place] Count <FONT COLOR=#[id number] Escherichia coli: REACTION Ampicillin <=2 S Ampicillin+Sulbactam <=2 S Cefazolin <=4 S Cefepime <=0.12 S Ceftriaxone <=0.25 S Ciprofloxacin <=0.25 S Ertapenem <=0.12 S Beta lactamase.extended spectrum NEG Gentamicin <=1 S Imipenem <=0.25 S Levofloxacin <=0.12 S Nitrofurantoin <=16 S Piperacillin+Tazobactam <=4 S Tobramycin <=1 S Trimethoprim+Sulfamethoxazole <=20 S B POSITIVE == ==== Impression /Plan: 39 wks + 2 days intrauterine for elective induction. Plan pitocin and AROM. Preparations in progress for delivery.
[2021-03-12] MEDS: Lactated Ringers 1,000 ML 50 ML IV (07:40)
[2021-03-12 08:29] LABS: Absolute Lymphocyte Count 2.03 X10^3/uL (0.83-4.51); Absolute Neutrophil Count 9.6 X10^3/uL (2.0-7.7); Basophil# 0.03 X10^3/uL; Basophil% 0.2 % (0-1); Eosinophils% 0.8 % (0-5); Hematocrit 31.3 % (37-47); Hemoglobin 9.3 g/dL (12.0-15.0); Lymphocyte # 2.03 X10^3/ul (0.83-4.51); Lymphocyte % 16.1 % (19-41); Mean Corp Hgb Conc 29.7 g/dL (32-36); Mean Corpuscular Hgb 21.3 pg (27.0-32.0); Mean Corpuscular Volume 71.8 fL (81-99); Mean Platelet Vol. 11.1 fl (6.2-12.0); Monocyte# 0.79 X10^3/uL; Monocyte% 6.3 % (0-10); NRBC Flagged by Analyzer 0 % (0-5); Platelet Count 338 K/mm3 (150-450); RBC Distribution Width CV 16.8 % (11.6-14.6); RBC Distribution Width SD 42.8 fl (35.1-43.9); Red Blood Count 4.36 M/mm3 (4.2-5.4); White Blood Count 12.6 K/mm3 (4.4-11.0)
--- NOTE | 2021-03-12 08:35 | PN.OBGYN_ITS ---
Subjective Subjective IV started. Rupture of membranes with internals. Cervix is 2-3, 65% effaced and -2 station. Scant fluid noted. Expect spontaneous vaginal delivery. Objective Data Objective Data Vital Signs: Vital Signs Temp Pulse BP Pulse Ox 98.2 F 88 120/67 83 03/12/21 08:14 03/12/21 08:16 03/12/21 08:16 03/12/21 08:15 Weight: 386 lb 11.053 oz Body Mass Index (BMI) 62.4 Lab / Micro Data Result Diagrams: 03/12/21 08:10 Labs: Laboratory Results - last 24 hr 03/12/21 08:10: WBC 12.6 H, RBC 4.36, Hgb 9.3 L, Hct 31.3 L, MCV 71.8 L, MCH 21.3 L, MCHC 29.7 L, RDW Std Deviation 42.8, RDW Coeff of Nathaniel 16.8 H, Plt Count 338, MPV 11.1, Immature Gran % (Auto) 0.600, Neut % (Auto) 76.0 H, Lymph % (Auto) 16.1 L, [place] % (Auto) 6.3, Eos % (Auto) 0.8, Baso % (Auto) 0.2, Absolute Neuts (auto) 9.6 H, Absolute Lymphs (auto) 2.03, Nucleated RBC % 0 Micro: Microbiology 03/12/21 07:58 Nasal Secretion SARS-CoV-2 Antigen (Rapid) - Final
[2021-03-12] MEDS: Oxytocin 30 units/NS 500 ml 30 UNITS/500 ML IV.SOLN IV (08:36)
[2021-03-12] MEDS: Penicillin G 3,000,000 Units 50 ML 100 UNITS IV ×2 (12:21→16:35)
[2021-03-12] MEDS: Lactated Ringers 1,000 ML 200 ML IV (17:57)
[2021-03-12] MEDS: Oxytocin 30 units/NS 500 ml 30 UNITS/500 ML IV.SOLN 334 UNITS IV (19:08)
--- NOTE | 2021-03-12 19:19 | EX.PCM.OBRPT ---
Maternal Data Information Final LANIE: 03/17/21 Gestational age: 39 weeks 2 days gestation Vaginal Delivery Maternal Presentation Maternal Presentation: Medically Indicated Induction (BMI 62) Type of Induction: Pitocin and Amniotomy Operative Information Date of Procedure: 03/12/21 Pre-Operative Diagnosis: IUP Post-Operative Diagnosis: IUP Surgery / Procedure Performed: Spontaneous Vaginal Delivery Type of Anesthesia: None Estimated Blood Loss: 250 cc Findings Description of Procedure: Spontaneous vaginal delivery of a viable male with Apgars of 8/9 from an occiput anterior presentation with clear amniotic fluid and normal three-vessel placenta. Cord around the neck x1 loose. No episiotomy or lacerations. Sponges okay. Delivery physician: Memo Brewer MD. Presentation: Vertex Amniotic Membrane Rupture Type: Artificial Amniotic Fluid Description: Clear Placental Delivery Description: Spontaneous Placenta Disposition: [facility] Cord Entanglement: Around neck x 1, loose Infant A Gender: Male (1 minute): 8 (5 minute): 9 Post Vaginal Delivery Medications Given After Delivery: IV Pitocin Episiotomy Description: None Laceration: None Complication Complications: None
[2021-03-12] MEDS: Acetaminophen 500 MG Tablet 1000 MG PO (20:03)
[2021-03-12] MEDS: 0.9% Saline Lock 10 ML Syringe IV (21:39)
--- NOTE | 2021-03-12 22:16 | NURSING ---
report given to Jennifer Mccain RN who is assuming care of pt at this time
[2021-03-13] VITALS (17 sets, daily range): BP systolic 127–159; BP diastolic 65–90; PULSE 82–247; RESP 16–18; TEMP 36.2–36.6; O2SAT 84–99
--- NOTE | 2021-03-13 07:36 | PCM.PN.OB ---
Subjective Subjective Patient sleeping comfortably in room. No issues or concerns. Lochia minimal. Pain controlled. Breast-feeding going well. Objective Data Objective Data Vital Signs: Vital Signs Temp Pulse Resp BP Pulse Ox 97.6 F L 247 H 18 140/90 H 84 03/13/21 04:50 03/13/21 04:55 03/13/21 04:50 03/13/21 04:55 03/13/21 04:55 Oxygen Delivery Method Room Air Weight: 175.4 kg Body Mass Index (BMI) 62.4 Intake & Output: Intake and Output for Last 24 Hours 03/11/21 03/12/21 03/13/21 23:59 23:59 23:59 Intake Total 2061.33 / 2061.33 Output Total 850 / 850 700 / 700 Balance 1211.33 / 1211.33 -700 / -700 Lab / Micro Data Result Diagrams: 03/12/21 08:10 Labs: Laboratory Results - last 24 hr 03/12/21 08:10: WBC 12.6 H, RBC 4.36, Hgb 9.3 L, Hct 31.3 L, MCV 71.8 L, MCH 21.3 L, MCHC 29.7 L, RDW Std Deviation 42.8, RDW Coeff of Nathaniel 16.8 H, Plt Count 338, MPV 11.1, Immature Gran % (Auto) 0.600, Neut % (Auto) 76.0 H, Lymph % (Auto) 16.1 L, [place] % (Auto) 6.3, Eos % (Auto) 0.8, Baso % (Auto) 0.2, Absolute Neuts (auto) 9.6 H, Absolute Lymphs (auto) 2.03, Nucleated RBC % 0 03/12/21 08:10: Blood Type B POSITIVE, Antibody Screen NEGATIVE Micro: Microbiology 03/12/21 07:58 Nasal Secretion SARS-CoV-2 Antigen (Rapid) - Final Physical Exam Const alert, oriented x3 and no apparent distress HEENT normocephalic Head and Scalp: atraumatic Neck full ROM Resp normal respiratory effort Cardio regular rate GI normal to inspection, nondistended, normoactive bowel sounds GI Narrative: Morbidly obese unable to palpate fundus Back/Spine normal ROM Extremity normal to inspection Extremity Narrative: Minimal pedal edema Neuro no focal motor deficits and no sensory deficits noted Psych mental status grossly normal and affect normal Assessment & Plan (1) state: PLAN: day 1. Lochia minimal, breast-feeding going well. Complicated by morbid obesity. Intermittent elevated blood pressure during admission, asymptomatic. Last heart rate very elevated per RN. Patient asymptomatic in room resting during exam, normal in room, being reevaluated as discussed with her current nurse this morning. Continue to keep close monitoring on blood pressures. Consider 1 week blood pressure reevaluation upon discharge tomorrow. (2) Vaginal delivery: (3) Morbid obesity due to excess calories:
--- NOTE | 2021-03-13 12:13 | NURSING ---
pt resting in bed talking with nurse and holding . first BP elevated. Talked with patient about BP and patient stated that after having her last baby she ended up having to be on hypertensive medication for a few months. Took 2nd pressure after patient relaxed, FOB was holding and patient took some deep breaths. Patients denies having a headache, visual disturbances. Will continue to monitor.
--- NOTE | 2021-03-13 16:42 | CASEMGMT ---
Social Work Labor and Delivery Social work consult noted for maternal history of anxiety and depression. Medical records reviewed. Patient/mother of baby (MOB) is known to this signwriter from 3 prior deliveries at [facility]. Plan to see MOB on 03.14.2021 for assessment and determination of resources/referral needs. -CHUCKY Leblanc, NEGOTIATIONS DIRECTOR
[2021-03-13] MEDS: Acetaminophen 500 MG Tablet 1000 MG PO (22:42)
[2021-03-13 23:35] LABS: Absolute Lymphocyte Count 2.97 X10^3/uL (0.83-4.51); Absolute Neutrophil Count 8.2 X10^3/uL (2.0-7.7); Basophil# 0.05 X10^3/uL; Basophil% 0.4 % (0-1); Eosinophil# 0.11 X10^3/uL; Eosinophils% 0.9 % (0-5); Hematocrit 29.8 % (37-47); Hemoglobin 8.9 g/dL (12.0-15.0); Lymphocyte # 2.97 X10^3/ul (0.83-4.51); Lymphocyte % 24.8 % (19-41); Mean Corp Hgb Conc 29.9 g/dL (32-36); Mean Corpuscular Hgb 21.5 pg (27.0-32.0); Mean Platelet Vol. 10.7 fl (6.2-12.0); Monocyte# 0.63 X10^3/uL; Monocyte% 5.3 % (0-10); NRBC Flagged by Analyzer 0 % (0-5); Neutrophil # 8.15 X10^3/uL (2.7-7.7); Neutrophil % 67.9 % (47-70); Platelet Count 351 K/mm3 (150-450); RBC Distribution Width CV 16.9 % (11.6-14.6); Red Blood Count 4.14 M/mm3 (4.2-5.4)
[2021-03-13 23:56] LABS: ALB/GLOB Ratio 0.5 RATIO (0.9-2.4); AST(SGOT) 23 U/L (15-37); Alanine Aminotransfer ALT/SGPT 22 U/L (13-56); Albumin, Serum 2.2 g/dL (3.2-5.0); Alkaline Phosphatase 73 U/L (45-117); Anion Gap 8 (5-15); BUN 13 mg/dL (7-18); BUN/Creat Ratio 18.7 RATIO (10-20); Calcium,Total 9.3 mg/dL (8.5-10.1); Chloride 105 mmol/L (98-107); EST Glomerular Filtration Rate 109 mL/min (>60); Est Glom Filt Rate - Afr Amer 131 mL/min (>60); Estimated Creatinine Clearance 115.01 ml/min; Globulin 4.5 g/dL (2.2-4.2); Glucose 123 mg/dL (74-106); LDH 192 U/L (84-246); Potassium 4.1 mmol/L (3.5-5.1); Protein, Total 6.7 g/dL (6.4-8.2); Sodium Level 139 mmol/L (136-145)
[2021-03-14] MEDS: Ibuprofen 600 MG Tablet PO (00:32)
[2021-03-14 01:24] VITALS: BP 142/73; PULSE 80
[2021-03-14 01:31] VITALS: BP 142/73; PULSE 80; RESP 14; TEMP 36.6
[2021-03-14 08:35] VITALS: BP 154/84; PULSE 83; RESP 18; TEMP 36.1; O2SAT 99
[2021-03-14 08:41] VITALS: BP 154/84; PULSE 80
--- NOTE | 2021-03-14 09:32 | PCM.DC.SUM ---
Providers Date of Admission: 03/12/21 Primary Care Physician: Starla Lane PA-C Reason For Visit: INDUCTION Diagnosis Discharge Diagnosis (1) state: Status: Acute Code(s): Z39.2 - Encounter for routine follow-up (2) Vaginal delivery: Status: Acute Code(s): O80 - Encounter for full-term uncomplicated delivery (3) Morbid obesity due to excess calories: Status: Acute Code(s): E66.01 - Morbid (severe) obesity due to excess calories (4) Hypertension affecting , delivered, current hospitalization: Status: Acute Code(s): O16.4 - Unspecified maternal hypertension, complicating childbirth Medications at Discharge Home Medications Prenatabs FA 1 tab PO DAILY 04/24/15 ferrous sulfate [iron] 325 mg PO DAILY 03/12/21 nitrofurantoin monohyd/m-cryst [Macrobid] 100 mg PO DAILY 03/12/21 Hospital Course Operations None Procedures None Summary of Care Provided Minutes Spent on Discharge: 10 Hospital Course: 25yo 3 para 3053 admitted at 39 2/7 wga for scheduled induction of labor. She had an uncomplicated . Her blood pressures were mildly elevated and preeclamptic labs were normal. She was discharged to home on day #2. Physical Exam Const alert, oriented x3 and no apparent distress HEENT normocephalic Resp normal respiratory effort, normal air movement and clear to auscultation bilaterally Cardio regular rate and regular rhythm GI normal to inspection, nondistended, normoactive bowel sounds, soft to palpation, non-tender and non-distended Inspection: gravid Narrative: Fundus firm and nontender at 4 FW above umbilicus Weight / BMI Weight Weight: 175.4 kg Body Mass Index (BMI) 62.4 ABG / Lab / Microbiology Data Result Diagrams: 03/13/21 23:25 03/13/21 23:25 Laboratory: Laboratory Results - last 24 hr 03/13/21 23:25: Sodium 139, Potassium 4.1, Chloride 105, Carbon Dioxide 26.0, Anion Gap 8, BUN 13, Creatinine 0.70, Estim Creat Clear Calc 115.01, Est GFR (MDRD) Af Amer 131, Est GFR (MDRD) Non-Af 109, BUN/Creatinine Ratio 18.7, Glucose 123 H, Calcium 9.3, Total Bilirubin 0.20, AST 23, ALT 22, Alkaline Phosphatase 73, Lactate Dehydrogenase 192, Total Protein 6.7, Albumin 2.2 L, Globulin 4.5 H, Albumin/Globulin Ratio 0.5 L 03/13/21 23:25: WBC 12.0 H, RBC 4.14 L, Hgb 8.9 L, Hct 29.8 L, MCV 72.0 L, MCH 21.5 L, MCHC 29.9 L, RDW Std Deviation 43.0, RDW Coeff of Nathaniel 16.9 H, Plt Count 351, MPV 10.7, Immature Gran % (Auto) 0.700, Neut % (Auto) 67.9, Lymph % (Auto) 24.8, [place] % (Auto) 5.3, Eos % (Auto) 0.9, Baso % (Auto) 0.4, Absolute Neuts (auto) 8.2 H, Absolute Lymphs (auto) 2.97, Nucleated RBC % 0 Microbiology: Microbiology 03/12/21 07:58 Nasal Secretion SARS-CoV-2 Antigen (Rapid) - Final D/C Instructions Discharge Diet: No restrictions Discharge Activity: Return to Normal Activity May resume sexual activity in: 4-6 weeks Lifting Restrictions: 25 lb Call your doctor if you observe: Fever of 101 or Higher, Inability to urinate, Inability to have a bowel movement, Using more than 1 pad per hour, Shortness of breath, Fainting spells, Chest pain, Increased palpitations (irregular heartbeat), Calf discomfort, Uncontrolled pain and - (Headache, persistent vision changes, upper abdominal pain, home Blood pressures > 160/>105) Please Follow Up With: Memo Brewer MD When: 1 weeks office blood pressure check 6 weeks visit Meaningful Use Info Meaningful Use Diagnoses (Choose all that apply): None applicable Discharge Plan Admission Admit Date/Time: 03/12/21 07:00 Primary Reason for Your Visit: Vaginal delivery Attending Provider: Memo Brewer Primary Care Provider: Starla Lane Discharge Orders/Prescriptions Prescriptions: No Action Prenatabs FA 1 TABLET tablet 1 tab PO DAILY RF: 0 ferrous sulfate [iron] 325 mg (65 mg iron) Tablet 325 mg PO DAILY RF: 0 nitrofurantoin monohyd/m-cryst [Macrobid] 100 mg Capsule 100 mg PO DAILY RF: 0 Referrals / Follow Up: Sulphur,Starla PA, PA-C [Primary Care Provider] - Disposition Disposition (needs filled in before D/C Order can be placed): Home, Self Care
[2021-03-14 12:45] VITALS: BP 139/62; PULSE 89; RESP 18; TEMP 36.4; O2SAT 98
[2021-03-14 12:47] VITALS: BP 139/62; PULSE 94
== END 2021-03-14 13:12 | disposition home or self-care (01) | DRG 560 ==
PROVIDERS: Obstetrics & Gynecology; Admitting Provider Obstetrics & Gynecology; PCP Family Medicine; Referring Provider Obstetrics & Gynecology; Visit Provider Obstetrics & Gynecology
DX: O69.81X0 Labor and delivery complicated by cord around neck, without compression, not applicable or unspecified (principal); Z37.0 Single live birth; O16.4 Unspecified maternal hypertension, complicating childbirth; E66.01 Morbid (severe) obesity due to excess calories; Z3A.39 39 weeks gestation of pregnancy; O99.214 Obesity complicating childbirth
CPT/HCPCS: 59025; 59050; 80053; 83615; 85025; 86850; 86900; 86901; 87426; 99218; J7120; A4216; G0378

== ENCOUNTER 2021-03-19 12:08 | Outpatient (CLI) | payer MEDICAID, SELFPAY ==
[2021-03-19 12:37] LABS: Hemoglobin 10.4 g/dL (12.0-15.0); Mean Corp Hgb Conc 30.6 g/dL (32-36); Mean Corpuscular Hgb 21.8 pg (27.0-32.0); Mean Corpuscular Volume 71.3 fL (81-99); Mean Platelet Vol. 10.7 fl (6.2-12.0); Platelet Count 433 K/mm3 (150-450); RBC Distribution Width CV 16.9 % (11.6-14.6); Red Blood Count 4.77 M/mm3 (4.2-5.4); White Blood Count 10.1 K/mm3 (4.4-11.0)
[2021-03-19 12:59] LABS: ALB/GLOB Ratio 0.6 RATIO (0.9-2.4); AST(SGOT) 14 U/L (15-37); Alanine Aminotransfer ALT/SGPT 24 U/L (13-56); Albumin, Serum 2.6 g/dL (3.2-5.0); Alkaline Phosphatase 69 U/L (45-117); Anion Gap 8 (5-15); BUN 15 mg/dL (7-18); BUN/Creat Ratio 19.4 RATIO (10-20); Calcium,Total 9.3 mg/dL (8.5-10.1); Chloride 105 mmol/L (98-107); Creatinine, Serum 0.77 mg/dL (0.55-1.02); EST Glomerular Filtration Rate 96 mL/min (>60); Est Glom Filt Rate - Afr Amer 117 mL/min (>60); Globulin 4.6 g/dL (2.2-4.2); Glucose 79 mg/dL (74-106); LDH 210 U/L (84-246); Potassium 4.1 mmol/L (3.5-5.1); Protein, Total 7.2 g/dL (6.4-8.2); Sodium Level 139 mmol/L (136-145); Uric Acid 8.1 mg/dL (2.6-6.0)
== END 2021-03-19 23:59 | disposition short-term general hospital (02) ==
LOC: WOBLAB 12:09
PROVIDERS: PCP Family Medicine; Visit Provider Obstetrics & Gynecology
DX: O16.5 Unspecified maternal hypertension, complicating the puerperium (principal)
CPT/HCPCS: 36415; 80053; 83615; 84550; 85027

== ENCOUNTER → 2022-02-19 | Outpatient (CLI) | payer MEDICAID, SELFPAY ==
[2022-02-19 16:13] LABS: hCG Titer Quant., Serum 63 mIU/mL (1-3)
== END | disposition home or self-care (01) ==
LOC: LAB 14:58
PROVIDERS: PCP Family Medicine; Visit Provider Nurse Practitioner Women's Health
DX: N91.2 Amenorrhea, unspecified (principal)
CPT/HCPCS: 36415; 84702

== ENCOUNTER → 2022-02-24 | Outpatient (CLI) | payer MEDICAID, SELFPAY ==
[2022-02-24 12:28] LABS: hCG Titer Quant., Serum 39 mIU/mL (1-3)
== END | disposition home or self-care (01) ==
LOC: LAB 10:18
PROVIDERS: PCP Family Medicine; Referring Provider Nurse Practitioner Women's Health; Visit Provider Nurse Practitioner Women's Health
DX: N91.2 Amenorrhea, unspecified (principal)
CPT/HCPCS: 36415; 84702

== ENCOUNTER → 2022-03-03 | Outpatient (CLI) | payer MEDICAID, SELFPAY ==
[2022-03-03 15:45] LABS: hCG Titer Quant., Serum < 1 mIU/mL (1-3)
== END | disposition home or self-care (01) ==
PROVIDERS: PCP Family Medicine; Visit Provider Nurse Practitioner Women's Health
DX: O02.1 Missed abortion (principal)
CPT/HCPCS: 36415; 84702

== ENCOUNTER → 2022-03-11 | Outpatient (CLI) | payer MEDICAID, SELFPAY ==
[2022-03-11 16:21] LABS: Thyroid Stim Hormone (TSH) 3.26 uIU/mL (0.358-3.74)
[2022-03-14 12:08] LABS: Chlamydia By Nucleic Acid AMP Negative (Negative)
[2022-03-14 12:30] LABS: Gonococcus By Nucleic Acid AMP Negative (Negative)
[2022-03-14 15:07] LABS: Dilute Prothrombin Time (dPT) 35.2 sec (0.0-47.6); Dilute Russell Viper Venom 36.8 sec (0.0-47.0); Thrombin Time 15.7 sec (0.0-23.0); dPT Confirm Ratio 1.02 Ratio (0.00-1.34)
[2022-03-15 09:19] LABS: Anti-Cardiolipin Ab, IgA, Qn < 9 APL U/mL (0-11); Anti-Cardiolipin Ab, IgG, Qn < 9 GPL U/mL (0-14); Anti-Cardiolipin Ab, IgM, Qn 14 MPL U/mL (0-12); Beta-2-Glycoprotein I IgA <9 (0-25); Beta-2-Glycoprotein I IgG <9 (0-20); Beta-2-Glycoprotein I IgM <9 (0-32); Interpretation Comment: (.); PTT-LA 39.2 sec (0.0-51.9)
== END | disposition home or self-care (01) ==
PROVIDERS: PCP Family Medicine; Referring Provider Nurse Practitioner Women's Health; Visit Provider Nurse Practitioner Women's Health
DX: Z11.3 Encounter for screening for infections with a predominantly sexual mode of transmission (principal); Z13.29 Encounter for screening for other suspected endocrine disorder; N96 Recurrent pregnancy loss
CPT/HCPCS: 36415; 84443; 86146; 86147; 87491; 87591

== ENCOUNTER → 2022-04-06 | Outpatient (CLI) | payer MEDICAID, SELFPAY ==
[2022-04-06 12:42] LABS: hCG Titer Quant., Serum 91 mIU/mL (1-3)
== END | disposition home or self-care (01) ==
LOC: LAB 11:04
PROVIDERS: PCP Family Medicine; Referring Provider Nurse Practitioner Women's Health; Visit Provider Nurse Practitioner Women's Health
DX: N96 Recurrent pregnancy loss (principal)
CPT/HCPCS: 36415; 84702

== ENCOUNTER → 2022-04-08 | Outpatient (CLI) | payer MEDICAID, SELFPAY ==
[2022-04-08 19:07] LABS: hCG Titer Quant., Serum 267 mIU/mL (1-3)
== END | disposition home or self-care (01) ==
LOC: LAB 17:13
PROVIDERS: PCP Family Medicine; Visit Provider Nurse Practitioner Women's Health
DX: N96 Recurrent pregnancy loss (principal)
CPT/HCPCS: 36415; 84702

== ENCOUNTER → 2022-04-13 | Outpatient (CLI) | payer MEDICAID, SELFPAY ==
--- NOTE | 2022-04-13 14:15 | US_ITS ---
STUDY: FIRST TRIMESTER OBSTETRICAL ULTRASOUND REASON FOR EXAM: Female, 26 years old bleeding/evaluate for ectopic -- UNKNOWN LMP -- HCG 39 ON 02/24/22 -- SAB 02/25/22 -- HCG and lt;1 ON 03/03/22 -- POSITIVE PRERG TEST 04/04/22 -- HCG 267 ON 04/08/22 -- BLEDEDING FOR 1 DAY ON 04/11/22 -- HCG 128 ON 04/13/22 LMP: Unknown TECHNIQUE: Transvaginal TECHNICAL QUALITY: Adequate. PRIOR ULTRASOUND: None. FINDINGS: There is no demonstrated intrauterine gestational sac. There is no demonstrated yolk sac. The placenta is non-visualized. There is no demonstrated embryo ( pole). The uterus measures 8.7 cm x 5.8 cm. 4.7 cm. There is no demonstrated uterine fibroid. The cervix is closed. The right ovary is not visualized. The left ovary measures 2.3 cm x 3.6 x 2.2 cm. A dominant follicle is seen within the ovary measuring 1.2 cm x 1.5 signed by 1.1 cm There is no visualized left adnexal mass or complex lesion. There is no fluid in the cul de sac. US/Transvaginal w/Preg US IMPRESSION: No intrauterine gestational sac is seen. Small follicle in the left ovary. Electronically Signed: Teo Ward MD at 15:47 EST ,
[2022-04-13 14:49] LABS: hCG Titer Quant., Serum 128 mIU/mL (1-3)
== END | disposition home or self-care (01) ==
PROVIDERS: Obstetrics & Gynecology; PCP Family Medicine; Referring Provider Nurse Practitioner Women's Health; Visit Provider Nurse Practitioner Women's Health
DX: O03.9 Complete or unspecified spontaneous abortion without complication (principal)
CPT/HCPCS: 36415; 76817; 84702; 86850; 86900; 86901

== ENCOUNTER → 2022-04-29 | Outpatient (CLI) | payer MEDICAID, SELFPAY ==
[2022-04-29 09:43] LABS: Erythrocyte Sedimentation Rate 43 mm/hr (0-30)
[2022-04-29 09:47] LABS: Absolute Lymphocyte Count 2.36 X10^3/uL (0.83-4.51); Absolute Neutrophil Count 6.2 X10^3/uL (2.0-7.7); Basophil# 0.02 X10^3/uL; Basophil% 0.2 % (0-1); Eosinophil# 0.16 X10^3/uL; Eosinophils% 1.7 % (0-5); Hematocrit 38.7 % (37-47); Hemoglobin 11.2 g/dL (12.0-15.0); Lymphocyte # 2.36 X10^3/ul (0.83-4.51); Lymphocyte % 25.6 % (19-41); Mean Corp Hgb Conc 28.9 g/dL (32-36); Mean Corpuscular Hgb 20.9 pg (27.0-32.0); Mean Corpuscular Volume 72.3 fL (81-99); Mean Platelet Vol. 10.4 fl (6.2-12.0); Monocyte# 0.47 X10^3/uL; Monocyte% 5.1 % (0-10); NRBC Flagged by Analyzer 0 % (0-5); Neutrophil # 6.18 X10^3/uL (2.7-7.7); Platelet Count 456 K/mm3 (150-450); RBC Distribution Width CV 17.3 % (11.6-14.6); RBC Distribution Width SD 44.8 fl (35.1-43.9); Red Blood Count 5.35 M/mm3 (4.2-5.4); White Blood Count 9.2 K/mm3 (4.4-11.0)
[2022-04-29 10:27] LABS: ALB/GLOB Ratio 0.8 RATIO (0.9-2.4); AST(SGOT) 18 U/L (15-37); Alanine Aminotransfer ALT/SGPT 34 U/L (13-56); Albumin, Serum 3.4 g/dL (3.2-5.0); Alkaline Phosphatase 60 U/L (45-117); Anion Gap 5 (5-15); BUN 10 mg/dL (7-18); BUN/Creat Ratio 14.5 RATIO (10-20); Calcium,Total 8.9 mg/dL (8.5-10.1); Chloride 107 mmol/L (98-107); Creatinine, Serum 0.69 mg/dL (0.55-1.02); EST Glomerular Filtration Rate 109 mL/min (>60); Est Glom Filt Rate - Afr Amer 132 mL/min (>60); Globulin 4.4 g/dL (2.2-4.2); Glucose 93 mg/dL (74-106); LDH 173 U/L (84-246); Potassium 3.9 mmol/L (3.5-5.1); Protein, Total 7.8 g/dL (6.4-8.2); Sodium Level 140 mmol/L (136-145)
[2022-04-29 10:28] LABS: hCG Titer Quant., Serum < 1 mIU/mL (1-3)
[2022-04-30 15:08] LABS: Endomysial Antibody IgA Negative (Negative)
[2022-04-30 16:10] LABS: Anti-Centromere B Ab <0.2 AI (0.0-0.9); Anti-Chromatin <0.2 AI (0.0-0.9); Anti-Jo <0.2 AI (0.0-0.9); Anti-Scleroderma-70 AB <0.2 AI (0.0-0.9); RNP Ab 0.3 AI (0.0-0.9); SJOGREN'S Anti-SS-A test < 0.2 AI (0.0-0.9); SJOGREN'S Anti-SS-B test < 0.2 AI (0.0-0.9); Smith Ab <0.2 AI (0.0-0.9)
[2022-04-30 19:37] LABS: Anti-dsDNA Ab <1 IU/mL (0-9)
[2022-04-30 19:44] LABS: Immunoglobulin A 205 mg/dL (87-352); t-Transglutaminase IgA <2 U/mL (0-3)
[2022-05-02 05:07] LABS: Albumin 3.3 g/dL (2.9-4.4); Alpha-1-Globulins 0.2 g/dL (0.0-0.4); Alpha-2-Globulins 0.9 g/dL (0.4-1.0); Gamma Globulin 1.6 g/dL (0.4-1.8); Immunoglobulin A 204 mg/dL (87-352); Immunoglobulin E 91 IU/mL (6-495); Immunoglobulin G 1747 mg/dL (586-1602); Immunoglobulin M 124 mg/dL (26-217); PROEL- TOTAL PROTEIN 7.2 g/dL (6.0-8.5)
[2022-05-02 12:35] LABS: Perinuclear Ab (P-ANCA) <1:20 titer (Neg:<1:20)
== END | disposition home or self-care (01) ==
PROVIDERS: Obstetrics & Gynecology; PCP Family Medicine; Referring Provider Nurse Practitioner Adult Health; Visit Provider Nurse Practitioner Adult Health
DX: O03.9 Complete or unspecified spontaneous abortion without complication (principal); O99.891 Other specified diseases and conditions complicating pregnancy; O99.619 Diseases of the digestive system complicating pregnancy, unspecified trimester; R10.9 Unspecified abdominal pain; K52.9 Noninfective gastroenteritis and colitis, unspecified; K62.5 Hemorrhage of anus and rectum
CPT/HCPCS: 36415; 80053; 82784; 82785; 83516; 83615; 84165; 84702; 85025; 85652; 86140; 86225; 86235; 86255; 86256; 86334

== ENCOUNTER → 2022-05-04 | Outpatient (CLI) | payer MEDICAID, SELFPAY ==
--- NOTE | 2022-05-04 17:09 | CT_ITS ---
EXAM: CT ABDOMEN AND PELVIS WITH INTRAVENOUS CONTRAST CLINICAL INDICATION: upper and lower abd pain, diarrhea, rectal bleed -- oral and iv TECHNIQUE: Helically acquired images were obtained of the abdomen and pelvis with intravenous contrast. CTDIvol = ( 31.43 ) mGy, DLP = ( 1933.79 ) mGycm This CT exam was performed using one or more of the following dose reduction techniques: automated exposure control, adjustment of the mA and/or kV according to patient size, and/or use of iterative reconstruction technique. This report was created using [employer] report [employer] technology. CONTRAST: IV 100mL [id number] COMPARISON: None. FINDINGS: LOWER THORAX: Unremarkable. Lung bases are clear. No cardiomegaly. No significant pericardial effusion. ABDOMEN: LIVER: Unremarkable. Homogeneous. No focal mass. GALLBLADDER AND BILE DUCTS: Gallbladder is not well seen and may be contracted as no surgical clips are identified in the gallbladder fossa. No intra- or extrahepatic biliary ductal dilation. PANCREAS: Unremarkable. No focal cystic or solid mass. SPLEEN: Unremarkable. Normal size without focal cystic or solid mass. ADRENALS: Unremarkable. No nodules. KIDNEYS AND URETERS: Punctate nonobstructing calyceal calculus at the interpolar aspect left kidney. No other renal abnormalities. Normal renal size and position. STOMACH AND BOWEL: Unremarkable. No focal inflammatory change. No inflammatory or obstructive changes of bowel. PELVIS: APPENDIX: No evidence of acute appendicitis. BLADDER: Bladder is decompressed. REPRODUCTIVE: Unremarkable as visualized. No mass. ABDOMEN and PELVIS: INTRAPERITONEAL SPACE: Unremarkable. No free air or free fluid. BONES/JOINTS: Unremarkable. No suspicious lytic or blastic abnormality. SOFT TISSUES: Unremarkable. No discrete abdominal or pelvic wall hernia. VASCULATURE: Unremarkable. Abdominal aorta is non-dilated. LYMPH NODES: Unremarkable. No enlarged lymph nodes. CT/Abdomen/Pelvis WITH Contrast IMPRESSION: 1. Punctate nonobstructing calyceal calculus at the interpolar aspect left kidney. 2. Otherwise, no acute or inflammatory disease or bowel obstruction. Electronically Signed: Pancho Batista MD at 23:44 EDT ,
== END | disposition home or self-care (01) ==
LOC: CT 17:08
PROVIDERS: PCP Family Medicine; Visit Provider Nurse Practitioner Adult Health
DX: R10.9 Unspecified abdominal pain (principal); K52.9 Noninfective gastroenteritis and colitis, unspecified; K62.5 Hemorrhage of anus and rectum
CPT/HCPCS: 74177; Q9967

== ENCOUNTER → 2022-05-07 | Outpatient (CLI) | payer MEDICAID, SELFPAY ==
[2022-05-13 12:55] LABS: Calprotectin, Stool 22 ug/g (0-120)
== END | disposition home or self-care (01) ==
LOC: LABSPEC 18:06
PROVIDERS: PCP Family Medicine; Visit Provider Nurse Practitioner Adult Health
DX: R10.9 Unspecified abdominal pain (principal); K52.9 Noninfective gastroenteritis and colitis, unspecified; K62.5 Hemorrhage of anus and rectum
CPT/HCPCS: 83630; 83993; 87493; 87506

== ENCOUNTER 2022-05-20 08:39 | Outpatient (RCR) | payer MEDICAID, SELFPAY | END 2022-05-22 23:59 | LOC: NS 08:39 | PROVIDERS: PCP Family Medicine; Visit Provider Obstetrics & Gynecology | DX: Z71.3 Dietary counseling and surveillance (principal); E66.01 Morbid (severe) obesity due to excess calories; Z68.44 Body mass index [BMI] 60.0-69.9, adult | CPT/HCPCS: 97802 ==

== ENCOUNTER 2022-06-03 15:20 | Outpatient (RCR) | payer MEDICAID, SELFPAY | END 2022-06-21 23:59 | LOC: NS 15:20 | PROVIDERS: PCP Family Medicine; Referring Provider Obstetrics & Gynecology; Visit Provider Obstetrics & Gynecology | DX: Z71.3 Dietary counseling and surveillance (principal); E66.01 Morbid (severe) obesity due to excess calories; Z68.44 Body mass index [BMI] 60.0-69.9, adult | CPT/HCPCS: 97803 ==

== ENCOUNTER 2022-06-11 08:52 | Day surgery (SDC) | payer MEDICAID, SELFPAY ==
[2022-06-11] MEDS: Lactated Ringers 1,000 ML 15 ML IV (09:40)
[2022-06-11 09:42] VITALS: BP 128/90; PULSE 90; RESP 16; TEMP 36.4; O2SAT 99; BMI 60.5
[2022-06-11 09:43] LABS: Internal QC Validated? YES +Cl - CLEAR BKGD
[2022-06-11 09:49] LABS: Pregnancy, Urine Negative Negative
--- NOTE | 2022-06-11 10:38 | HP.PCM_ITS ---
History and Physical Date of Admission: 06/11/22 26 F who presents to the office today to establish with GI, referred for abdominal pain, rectal bleeding, chronic diarrhea. GI issues began more than 6 yrs ago. She reports the rectal bleeding has gotten worse. Most recent episode of rectal bleeding was a week ago, this time she didn't have pain but sometimes gets pain assoc with it, gets blood clots, most recent episode lasted 4 days. Rectal blood not mixed with stool, bleeds when sitting on toilet. No tenesmus. Some episodes she gets contraction-type pain across upper abd, goes from right to left. Sometimes gets lower mid abd pain. No pelvic or rectal pain. No heartburn or acid reflux. Has frequent nausea, worse in AM and in the evening, no vomiting. No formed stools, all stools are loose x yrs, urgent postprandial diarrhea within 20 min of eating, yellow and mucus in the stool, 10 BMs per day, no nocturnal diarrhea but it starts as soon as she wakes up. She takes prn loperamide. No routine NSAID use. She had egd and colonoscopy with Dr Hsieh approx 6 yrs ago, told everything was normal. PMH: anemia, prediabetes, morbid obesity, multiple SAB, back pain/disc disease PSH: cholecystectomy age 14, hernia repair age 4 FH: Mother diverticulitis. Maternal grandmother UC. Maternal grandfather diverticulitis. 03/2022 hgb 9.2, albumin 3, normal ast/alt/alk phos/bili 01/2022 CT abd pel w/o contrast: nonobstructing left nephrolithiasis ROS Const Constitutional: Positive for fatigue and weight change ENT ENT: No difficulty swallowing Gastro GI: Positive for abdominal pain, change in bowel habits, diarrhea, heartburn, Blood in stool and nausea/dyspepsia; No belching, bloating, change in stool character, coffee ground emesis, constipation, cramping, difficulty swallowing, feeling full early, excessive flatus, incontinent of stools, Vomiting blood/hematemesis, loose stools, Black,tarry stools, pain with swallowing, vomiting or other Musc Musculoskeletal: Positive for joint pain, back pain, muscle cramps and stiffness Skin Skin: No yellowing of the eye or itchy eyes Psych Psychiatric: Positive for anxiety and No depression Endo Endocrine: Positive for fatigue and weight change Aller/Imm Allergy/Immunologic: No itchy eyes Oniel/Lymp Hematologic/Lymphatic: No easy bleeding or easy bruising Exam Const General: cooperative, comfortable and no acute distress Nutritional Appearance: obese Orientation: alert, awake and oriented x3 HENMT Head: normal to inspection Eyes Sclera: sclerae normal Resp Effort & Inspection: normal respiratory effort GI Palpation: soft, no hepatosplenomegaly, no masses and nontender Skin General: no rashes or lesions noted Neuro Speech: speech normal Gait: normal gait Psych Mood: euthymic mood Quality Reporting Tobacco Screening ([facility] 138) Smoking Status: Never smoker Assessment and Plan Assessment and Plan (1) Rectal bleeding: ?Status:?Chronic ?Plan: This delightful 26-yr-old female has chronic rectal bleeding, diarrhea, abdominal pain, anemia, recurrent miscarriages, FH UC Will have her start colestipol 1 gram at HS, we can increase if needed, ok to take loperamide prn Biochemical eval to include w/u for IBS, celiac, infection CT abd pel w/ oral and IV contrast EGD and colonoscopy with office f/u 2 wks later (2) Chronic diarrhea: ?Status:?Chronic ?Plan: See above (3) Abdominal pain: ?Status:?Chronic ?Plan: See above ? ? ? Orders: Orders Miscellaneous Lab Procedure Today K52.9 - Noninfective gastroenteritis and colitis, unspecified, K62.5 - Hemorrhage of anus and rectum, R10.9 - Unspecified abdominal pain ? C Comprehensive Metabolic Profil Today K52.9 - Noninfective gastroenteritis and colitis, unspecified, K62.5 - Hemorrhage of anus and rectum, R10.9 - Unspecified abdominal pain ? CRP Today K52.9 - Noninfective gastroenteritis and colitis, unspecified, K62.5 - Hemorrhage of anus and rectum, R10.9 - Unspecified abdominal pain ? LDH Today K52.9 - Noninfective gastroenteritis and colitis, unspecified, K62.5 - Hemorrhage of anus and rectum, R10.9 - Unspecified abdominal pain ? CBC W/Diff, Automated Today K52.9 - Noninfective gastroenteritis and colitis, unspecified, K62.5 - Hemorrhage of anus and rectum, R10.9 - Unspecified abdominal pain ? Erythrocyte Sed Rate Today K52.9 - Noninfective gastroenteritis and colitis, unspecified, K62.5 - Hemorrhage of anus and rectum, R10.9 - Unspecified abdominal pain ? DANGELO Comprehensive Panel Today K52.9 - Noninfective gastroenteritis and colitis, unspecified, K62.5 - Hemorrhage of anus and rectum, R10.9 - Unspecified abdominal pain ? Calprotectin, Stool Today K52.9 - Noninfective gastroenteritis and colitis, unspecified, K62.5 - Hemorrhage of anus and rectum, R10.9 - Unspecified abdominal pain ? Stool Lactoferrin/WBC Today K52.9 - Noninfective gastroenteritis and colitis, unspecified, K62.5 - Hemorrhage of anus and rectum, R10.9 - Unspecified abdominal pain ? ANCA Today K52.9 - Noninfective gastroenteritis and colitis, unspecified, K62.5 - Hemorrhage of anus and rectum, R10.9 - Unspecified abdominal pain ? Celiac Disease Profile Today K52.9 - Noninfective gastroenteritis and colitis, unspecified, K62.5 - Hemorrhage of anus and rectum, R10.9 - Unspecified abdominal pain ? Immunoglobulins G/A/M/E Today K52.9 - Noninfective gastroenteritis and colitis, unspecified, K62.5 - Hemorrhage of anus and rectum, R10.9 - Unspecified abdominal pain ? ELVIRA + Protein Elect, Serum Today K52.9 - Noninfective gastroenteritis and colitis, unspecified, K62.5 - Hemorrhage of anus and rectum, R10.9 - Unspecified abdominal pain ? ENTERIC PATHOGEN PANEL STOOL Today K52.9 - Noninfective gastroenteritis and colitis, unspecified, K58.9 - Irritable bowel syndrome without diarrhea, K62.5 - Hemorrhage of anus and rectum, R10.9 - Unspecified abdominal pain ? CDIFF (PCR) Today K52.9 - Noninfective gastroenteritis and colitis, unspecified, K62.5 - Hemorrhage of anus and rectum, R10.9 - Unspecified abdominal pain ? Abdomen/Pelvis WITH Contrast Today K52.9 - Noninfective gastroenteritis and colitis, unspecified, K62.5 - Hemorrhage of anus and rectum, R10.9 - Unspecified abdominal pain ? Medications: New colestipol 1 g? PO ONCE 60 tabs 1RF diarrhea ? ?
--- NOTE | 2022-06-11 10:45 | IMM_PTH ---
PATIENT: SLIME SABA LOC: EN U#:[id number] AGE/SX: 26/F ROOM: RE06/11/[address]: Dr. Trey Malone DO : 1995 BED: DIS: 06/11/2022 SPEC #: [id number] RECD: 06/11/22 14:53 STATUS: BERNARD REQ #: [id number] JESSICA: 06/11/22 10:[address]: Trey Malone DEPT: IMMUNOHISTOCHEMISTRY RECD BY: Crystal Mcdonald ENTERED: 06/11/22 14:53 SP TYPE: IMMUNO OTHR DR: Starla Lane PA-C Tissues: A - Stomach, NOS Procedures: H Pylori (initial) PHYSICIAN & INSTITUTION [place] [id number] SPECIMEN INFORMATION: Tissue Source: A ? Gastric antrum Clinical Info: Rectal bleeding, chronic diarrhea, abdominal pain Specimen Number: [id number] CPT code: 78740 METHODOLOGY: Deparaffinized sections of prefer/formalin-fixed tissue or PAP/DQ stained slides are incubated with monoclonal/polyclonal antibodies/oligonucleotide probes. Localization is made via biotin free immunoperoxidase method. Appropriate controls are performed and reacted as expected. Results on target cell population are indicated in the following table: RESULTS: ANTIBODY / CLONE RESULT Block A H Pylori (polyclonal) negative These tests were developed and their performance characteristics determined by [facility]. They may not have been cleared or approved by the U.S. Food and Drug Administration. The FDA has determined that such clearance or approval is not necessary. The above immunohistochemical/dualISH markers are ordered and reviewed by the Pathologist. INTERPRETATION: A. Gastric antrum, biopsy: Negative for Helicobacter pylori organisms. SJ:sly 06/12/2022
--- NOTE | 2022-06-11 10:45 | EGD_PTH ---
PATIENT: SLIME SABA LOC: EN U#:[id number] AGE/SX: 26/F ROOM: RE06/11/[address]: Dr. Trey Malone DO : 1995 BED: DIS: 06/11/2022 SPEC #: [id number] RECD: 06/11/22 12:44 STATUS: BERNARD REMica #: [id number] JESSICA: 06/11/22 10:[address]: Trey Malone DEPT: SURGICAL PATHOLOGY RECD BY: Lilian Anton ENTERED: 06/11/22 13:28 SP TYPE: EGD BIOPSY OT DR: Starla Lane PA-C Tissues: A - Gastric mucous membrane B - Duodenum, NOS C - Ileum, NOS D - COLON BIOPSY Procedures: Surgery Specimen Level IV HEADER OPERATION: Colonoscopy with biopsies, EGD ([facility]) with biopsies PRE-OP DIAGNOSIS: Rectal bleeding, chronic diarrhea, abdominal pain TISSUE SUBMITTED: A ? Gastric antrum biopsy for H. pylori and path, B ? Duodenum biopsy, C ? Terminal ileum biopsies, D ? Random colon biopsies MICROSCOPIC DIAGNOSIS A. Gastric antrum, biopsy: Mild gastritis. See microscopic description and comment. B. Duodenum, biopsy: Fragments of duodenal mucosa, no pathologic diagnosis. C. Terminal ileum, biopsy: Fragments of small intestinal mucosa, no pathologic diagnosis. D. Colon, random biopsy: Fragments of colonic mucosa, no pathologic diagnosis. SJ:sly 06/12/2022 COMMENT A. The results of immunohistochemistry for Helicobacter pylori will be reported separately ([id number]). MICROSCOPIC DESCRIPTION Slides are reviewed. A. The specimen shows fragments of gastric mucosa with chronic inflammatory cell infiltrates in the lamina propria consisting of lymphocytes and plasma cells, consistent with mild chronic gastritis. GROSS DESCRIPTION A - Received in fixative is one container labeled with the patient's name and designated gastric antrum. The specimen consists of two irregular fragments of light adamson soft tissue that in aggregate measure 0.6 x 0.3 x 0.1 cm. The specimen is totally submitted in one cassette. B - Received in fixative is one container labeled with the patient's name and designated duodenum biopsy. The specimen consists of two irregular fragments of light adamson soft tissue that in aggregate measure 0.6 x 0.3 x 0.1 cm. The specimen is totally submitted in one cassette. C - Received in fixative is one container labeled with the patient's name and designated terminal ileum biopsy. The specimen consists of two irregular fragments of light adamson soft tissue that in aggregate measure 0.6 x 0.3 x 0.1 cm. The specimen is totally submitted in one cassette. D - Received in fixative is one container labeled with the patient's name and designated random colonic biopsy. The specimen consists of multiple irregular fragments of light adamson soft tissue that in aggregate measure 1.0 x 0.7 x 0.1 cm. The specimen is totally submitted in one cassette. / SJ:rg 06/11/2022 TC:3 CPT: 00889 x4
[2022-06-11 11:25] VITALS: BP 128/90; BP 140/86; PULSE 112; RESP 18; TEMP 36.9; O2SAT 97
--- NOTE | 2022-06-11 11:26 | OP.EGD_ITS ---
Patient Name: Anne Marie Peterson Procedure Date: 06/11/2022 10:42 AM Date of : 1995 Age: 26 Procedure: Upper GI endoscopy Indications: Functional Dyspepsia Providers: Trey Malone DO Medicines: Monitored Anesthesia Care Patient Profile: This is a 26 year old female. Refer to note in patient chart for documentation of history and physical. Patient has symptoms of chronic abdominal cramping, chronic abdominal distention and chronic epigastric abdominal pain. Complications: No immediate complications. Procedure: Pre-Anesthesia Assessment: - Prior to the procedure, a History and Physical was performed, and patient medications and allergies were reviewed. The patient is competent. The risks and benefits of the procedure and the sedation options and risks were discussed with the patient. All questions were answered and informed consent was obtained. Patient identification and proposed procedure were verified by the physician. Mental Status Examination: normal. Prophylactic Antibiotics: The patient does not require prophylactic antibiotics. Prior Anticoagulants: The patient has taken no previous anticoagulant or antiplatelet agents. ASA Grade Assessment: II - A patient with mild systemic disease. After reviewing the risks and benefits, the patient was deemed in satisfactory condition to undergo the procedure. The anesthesia plan was to use moderate sedation / analgesia (conscious sedation). Immediately prior to administration of medications, the patient was re-assessed for adequacy to receive sedatives. The heart rate, respiratory rate, oxygen saturations, blood pressure, adequacy of pulmonary ventilation, and response to care were monitored throughout the procedure. The physical status of the patient was re-assessed after the procedure. After obtaining informed consent, the endoscope was passed under direct vision. Throughout the procedure, the patient's blood pressure, pulse, and oxygen saturations were monitored continuously. The Colonoscope was introduced through the mouth, and advanced to the second part of duodenum. The upper GI endoscopy was accomplished without difficulty. The patient tolerated the procedure well. Scope In: 10:48:59 AM Scope Out: 10:58:25 AM Total Procedure Duration Time 0 hours 9 minutes 26 seconds Findings: The examined esophagus was normal. Patchy mildly erythematous mucosa without bleeding was found in the stomach. Biopsies were taken with a cold forceps for histology. Patchy mildly erythematous mucosa without active bleeding and with no stigmata of bleeding was found in the duodenal bulb and in the first portion of the duodenum. Biopsies were taken with a cold forceps for histology. Verification of patient identification for the specimen was done. Estimated blood loss was minimal. Impression: - Normal esophagus. - Erythematous mucosa in the stomach. Biopsied. - Erythematous duodenopathy. Biopsied. Recommendation: - Discharge patient to home. - Resume previous diet. - Continue present medications. - Await pathology results. Procedure Code(s): --- Professional --- 50565, Esophagogastroduodenoscopy, flexible, transoral; with biopsy, single or multiple CPT copyright 2017 [employer]. All rights reserved. The codes documented in this report are preliminary and upon groundman/lineman review may be revised to meet current compliance requirements. Trey Malone DO 06/11/2022 11:26:22 AM This report has been signed electronically. Number of Addenda: 0 Note Initiated On: 06/11/2022 10:42 AM
--- NOTE | 2022-06-11 11:27 | OP.CCLET_ITS ---
06/11/[address] Re : Upper GI endoscopy procedure for Anne Marie Lane This procedure was performed on May. My impressions and recommendations are as follows: Impressions : - Normal esophagus. - Erythematous mucosa in the stomach. Biopsied. - Erythematous duodenopathy. Biopsied. Recommendations : - Discharge patient to home. - Resume previous diet. - Continue present medications. - Await pathology results. My findings are described in the full procedure note, which is enclosed. If I can be of further assistance, please feel free to contact me at . Sincerely, Trey Malone, 06/11/2022 11:26:22 AM This report has been signed electronically.
--- NOTE | 2022-06-11 11:29 | OP.CCLET_ITS ---
06/11/[address] Re : Colonoscopy procedure for Anne Marie Lane This procedure was performed on May. My impressions and recommendations are as follows: Impressions : - Congested mucosa in the sigmoid colon, in the descending colon and at the hepatic flexure. Biopsied. - Congested mucosa in the terminal ileum. Biopsied. Recommendations : - Discharge patient to home. - Resume previous diet. - Continue present medications. - Await pathology results. - Repeat colonoscopy for surveillance based on pathology results. My findings are described in the full procedure note, which is enclosed. If I can be of further assistance, please feel free to contact me at . Sincerely, Trey Malone, 06/11/2022 11:29:09 AM This report has been signed electronically.
--- NOTE | 2022-06-11 11:29 | OP.COLON_ITS ---
Patient Name: Anne Marie Peterson Procedure Date: 06/11/2022 10:58 AM Date of : 1995 Age: 26 Procedure: Colonoscopy Indications: Generalized abdominal pain, Clinically significant diarrhea of unexplained origin Providers: Trey Malone DO Medicines: Monitored Anesthesia Care Patient Profile: This is a 26 year old female. Refer to note in patient chart for documentation of history and physical. Patient has symptoms of chronic abdominal cramping, chronic abdominal distention and chronic epigastric abdominal pain. Last Colonoscopy: none. The patient's first colonoscopy is today. Complications: No immediate complications. Procedure: Pre-Anesthesia Assessment: - Prior to the procedure, a History and Physical was performed, and patient medications and allergies were reviewed. The patient is competent. The risks and benefits of the procedure and the sedation options and risks were discussed with the patient. All questions were answered and informed consent was obtained. Patient identification and proposed procedure were verified by the physician. Mental Status Examination: normal. Prophylactic Antibiotics: The patient does not require prophylactic antibiotics. Prior Anticoagulants: The patient has taken no previous anticoagulant or antiplatelet agents. ASA Grade Assessment: II - A patient with mild systemic disease. After reviewing the risks and benefits, the patient was deemed in satisfactory condition to undergo the procedure. The anesthesia plan was to use moderate sedation / analgesia (conscious sedation). Immediately prior to administration of medications, the patient was re-assessed for adequacy to receive sedatives. The heart rate, respiratory rate, oxygen saturations, blood pressure, adequacy of pulmonary ventilation, and response to care were monitored throughout the procedure. The physical status of the patient was re-assessed after the procedure. After I obtained informed consent, the scope was passed under direct vision. Throughout the procedure, the patient's blood pressure, pulse, and oxygen saturations were monitored continuously. The Colonoscope was introduced through the anus and advanced to the terminal ileum. The colonoscopy was performed without difficulty. The patient tolerated the procedure well. The quality of the bowel preparation was adequate. Scope In: 11:03:35 AM Scope Withdrawal Time 0 hours 10 minutes 25 seconds Scope Out: 11:16:23 AM Total Procedure Duration Time 0 hours 12 minutes 48 seconds Findings: The perianal and digital rectal examinations were normal. An area of mildly congested mucosa was found in the sigmoid colon, in the descending colon and at the hepatic flexure. Biopsies were taken with a cold forceps for histology. Verification of patient identification for the specimen was done. Estimated blood loss was minimal. A patchy area of the terminal ileum was congested. Biopsies were taken with a cold forceps for histology. Verification of patient identification for the specimen was done. Estimated blood loss was minimal. Impression: - Congested mucosa in the sigmoid colon, in the descending colon and at the hepatic flexure. Biopsied. - Congested mucosa in the terminal ileum. Biopsied. Recommendation: - Discharge patient to home. - Resume previous diet. - Continue present medications. - Await pathology results. - Repeat colonoscopy for surveillance based on pathology results. Procedure Code(s): --- Professional --- 95956, Colonoscopy, flexible; with biopsy, single or multiple CPT copyright 2017 [employer]. All rights reserved. The codes documented in this report are preliminary and upon farm owner operator review may be revised to meet current compliance requirements. Trey Malone DO 06/11/2022 11:29:09 AM This report has been signed electronically. Number of Addenda: 0 Note Initiated On: 06/11/2022 10:58 AM
[2022-06-11 11:30] VITALS: BP 128/77; BP 128/90; PULSE 101; RESP 18; O2SAT 99
[2022-06-11 11:35] VITALS: BP 124/81; BP 128/90; PULSE 95; RESP 18; O2SAT 99
[2022-06-11 11:40] VITALS: BP 126/65; BP 128/90; PULSE 95; RESP 18; TEMP 37.1; O2SAT 100
[2022-06-11 11:56] VITALS: BP 128/90
== END 2022-06-11 12:16 | disposition home or self-care (01) ==
LOC: EN 08:53 → AC 08:54
PROVIDERS: Anesthesiology; PCP Family Medicine; Referring Provider Family Medicine; Visit Provider Internal Medicine Gastroenterology
PROC: 0DJD8ZZ Inspection of Lower Intestinal Tract, Via Natural or Artificial Opening Endoscopic (ICD-10-PCS; CPT 45378; principal; 2022-06-11 10:40)
DX: K29.70 Gastritis, unspecified, without bleeding (principal); E66.01 Morbid (severe) obesity due to excess calories; Z68.44 Body mass index [BMI] 60.0-69.9, adult; K63.89 Other specified diseases of intestine; K31.89 Other diseases of stomach and duodenum; K30 Functional dyspepsia
CPT/HCPCS: 45380; 43239; 81025; 88305; 88342; J7120

== ENCOUNTER 2022-07-01 15:32 | Outpatient (RCR) | payer MEDICAID, SELFPAY | END 2022-07-22 23:59 | LOC: NS 15:32 | PROVIDERS: PCP Family Medicine; Referring Provider Obstetrics & Gynecology; Visit Provider Obstetrics & Gynecology | DX: Z71.3 Dietary counseling and surveillance (principal); E66.01 Morbid (severe) obesity due to excess calories; Z68.44 Body mass index [BMI] 60.0-69.9, adult | CPT/HCPCS: 97803 ==

== ENCOUNTER 2022-07-27 16:09 | Outpatient (RCR) | payer MEDICAID, SELFPAY | END 2022-08-21 23:59 | LOC: NS 16:09 | PROVIDERS: PCP Family Medicine; Referring Provider Obstetrics & Gynecology; Visit Provider Obstetrics & Gynecology | DX: Z71.3 Dietary counseling and surveillance (principal); E66.01 Morbid (severe) obesity due to excess calories; Z68.44 Body mass index [BMI] 60.0-69.9, adult | CPT/HCPCS: 97803 ==

== ENCOUNTER 2022-09-01 16:01 | Outpatient (RCR) | payer MEDICAID, SELFPAY | END 2022-09-21 23:59 | LOC: NS 16:01 | PROVIDERS: PCP Family Medicine; Referring Provider Obstetrics & Gynecology; Visit Provider Obstetrics & Gynecology | DX: Z71.3 Dietary counseling and surveillance (principal); E66.01 Morbid (severe) obesity due to excess calories; Z68.44 Body mass index [BMI] 60.0-69.9, adult | CPT/HCPCS: 97803 ==

== ENCOUNTER → 2022-09-03 | Outpatient (CLI) | payer MEDICAID, SELFPAY ==
[2022-09-03 11:34] LABS: Absolute Lymphocyte Count 2.56 X10^3/uL (0.83-4.51); Absolute Neutrophil Count 7.1 X10^3/uL (2.0-7.7); Basophil# 0.05 X10^3/uL; Basophil% 0.5 % (0-1); Eosinophil# 0.17 X10^3/uL; Eosinophils% 1.6 % (0-5); Hemoglobin 11.5 g/dL (12.0-15.0); Lymphocyte # 2.56 X10^3/ul (0.83-4.51); Lymphocyte % 24.5 % (19-41); Mean Corp Hgb Conc 29.5 g/dL (32-36); Mean Corpuscular Hgb 21.4 pg (27.0-32.0); Mean Corpuscular Volume 72.6 fL (81-99); Mean Platelet Vol. 10.1 fl (6.2-12.0); Monocyte# 0.52 X10^3/uL; NRBC Flagged by Analyzer 0 % (0-5); Neutrophil % 67.8 % (47-70); Platelet Count 441 K/mm3 (150-450); RBC Distribution Width SD 45.6 fl (35.1-43.9); Red Blood Count 5.37 M/mm3 (4.2-5.4); White Blood Count 10.5 K/mm3 (4.4-11.0)
[2022-09-03 12:01] LABS: Vitamin D,25 Hydroxy 24.4 ng/mL
[2022-09-03 12:21] LABS: ALB/GLOB Ratio 0.7 RATIO (0.9-2.4); AST(SGOT) 13 U/L (15-37); Alanine Aminotransfer ALT/SGPT 20 U/L (13-56); Albumin, Serum 3.4 g/dL (3.2-5.0); Alkaline Phosphatase 62 U/L (45-117); Anion Gap 7 (5-15); BUN 11 mg/dL (7-18); BUN/Creat Ratio 14.4 RATIO (10-20); Calcium,Total 8.8 mg/dL (8.5-10.1); Chloride 104 mmol/L (98-107); Cholesterol 157 mg/dL (200); Creatinine, Serum 0.76 mg/dL (0.55-1.02); EST Glomerular Filtration Rate 97 mL/min (>60); Est Glom Filt Rate - Afr Amer 117 mL/min (>60); Free T3 2.3 pg/mL (2.18-3.98); Globulin 4.6 g/dL (2.2-4.2); Glucose 95 mg/dL (74-106); High Density Lipoprotein 37 mg/dL; Sodium Level 137 mmol/L (136-145); Thyroid Stim Hormone (TSH) 2.58 uIU/mL (0.358-3.74); Triglycerides 83 mg/dL; Very Low Density Lipoprotein 17 mg/dL (5-40)
[2022-09-07 17:07] LABS: 17-Hydroxyprogesterone 11 ng/dL (.)
== END | disposition home or self-care (01) ==
LOC: PAVLAB 11:08
PROVIDERS: PCP Family Medicine; Referring Provider Obstetrics & Gynecology; Visit Provider Obstetrics & Gynecology
DX: L68.0 Hirsutism (principal); E66.8 Other obesity
CPT/HCPCS: 36415; 80053; 80061; 82306; 83036; 83498; 84443; 84481; 85025

== ENCOUNTER → 2022-10-16 | Outpatient (CLI) | payer MEDICAID, SELFPAY | END | disposition home or self-care (01) | LOC: SL 20:33 | PROVIDERS: PCP Family Medicine; Referring Provider Nurse Practitioner Acute Care; Visit Provider Nurse Practitioner Acute Care | DX: G47.10 Hypersomnia, unspecified (principal) | CPT/HCPCS: 95811 ==

== ENCOUNTER → 2023-11-10 | Outpatient (CLI) | payer MEDICAID, SELFPAY ==
[2023-11-17 09:37] LABS: HPV Reflexed? NOT INDICATED
== END | disposition home or self-care (01) ==
LOC: LABSPEC 16:31
PROVIDERS: Referring Provider Nurse Practitioner Family; Visit Provider Nurse Practitioner Family
DX: Z12.4 Encounter for screening for malignant neoplasm of cervix (principal)
CPT/HCPCS: 88175; G0145

== ENCOUNTER → 2023-11-11 | Outpatient (CLI) | payer MEDICAID, SELFPAY ==
[2023-11-11 09:24] LABS: Erythrocyte Sedimentation Rate 28 mm/hr (0-30)
[2023-11-11 09:57] LABS: ALB/GLOB Ratio 0.6 RATIO (0.9-2.4); AST(SGOT) 151 U/L (15-37); Alanine Aminotransfer ALT/SGPT 107 U/L (13-56); Albumin, Serum 3.1 g/dL (3.2-5.0); Alkaline Phosphatase 347 U/L (45-117); Anion Gap 9 (5-15); BUN 10 mg/dL (7-18); BUN/Creat Ratio 20.2 RATIO (10-20); Bilirubin, Direct 1.88 mg/dL (0.00-0.30); Calcium,Total 9.1 mg/dL (8.5-10.1); Chloride 105 mmol/L (98-107); EST Glomerular Filtration Rate 157 mL/min (>60); Est Glom Filt Rate - Afr Amer 191 mL/min (>60); Globulin 4.8 g/dL (2.2-4.2); Glucose 88 mg/dL (74-106); Lipase 60 U/L (13-75); Potassium 3.8 mmol/L (3.5-5.1); Protein, Total 7.9 g/dL (6.4-8.2); Sodium Level 137 mmol/L (136-145)
[2023-11-12 14:10] LABS: Anti-Centromere B Ab <0.2 AI (0.0-0.9); Anti-Chromatin <0.2 AI (0.0-0.9); Anti-Jo <0.2 AI (0.0-0.9); Anti-Mitochondrial AB <20.0 Units (0.0-20.0); Anti-Scleroderma-70 AB <0.2 AI (0.0-0.9); Anti-dsDNA Ab <1 IU/mL (0-9); RNP Ab 0.3 AI (0.0-0.9); SJOGREN'S Anti-SS-A test < 0.2 AI (0.0-0.9); SJOGREN'S Anti-SS-B test < 0.2 AI (0.0-0.9); Smith Ab <0.2 AI (0.0-0.9)
[2023-11-15 15:08] LABS: Angiotensin Convert Enzyme 86 U/L (14-82); Anti-Smooth Muscle ABS 21 Units (0-19); Copper, Serum or Plasma 96 ug/dL (80-158); Cytoplasmic Ab (C-ANCA) <1:20 titer (Neg:<1:20); Endomysial Antibody IgA Negative (Negative); IgG, Quant 2173 mg/dL (586-1602); Immunoglobulin A 540 mg/dL (87-352); Immunoglobulin G, Subclass 1 1356 mg/dL (248-810); Immunoglobulin G, Subclass 2 273 mg/dL (130-555); Immunoglobulin G, Subclass 3 > 219 mg/dL (15-102); Immunoglobulin G, Subclass 4 70 mg/dL (2-96); Perinuclear Ab (P-ANCA) <1:20 titer (Neg:<1:20); t-Transglutaminase IgA <2 U/mL (0-3)
== END | disposition home or self-care (01) ==
LOC: LAB 08:34
PROVIDERS: PCP Family Medicine; Referring Provider Student in an Organized Health Care Education/Training Program; Visit Provider Student in an Organized Health Care Education/Training Program
DX: R74.8 Abnormal levels of other serum enzymes (principal)
CPT/HCPCS: 36415; 80053; 82164; 82248; 82390; 82525; 82784; 82787; 83516; 83690; 85652; 86140; 86225; 86235; 86255; 86256

== ENCOUNTER → 2023-11-25 | Outpatient (CLI) | payer MEDICAID, SELFPAY ==
[2023-11-25] VITALS (13 sets, daily range): BP systolic 124–161; BP diastolic 68–118; PULSE 70–89; RESP 14–22; TEMP 36.1; O2SAT 94–100; BMI 45.3
--- NOTE | 2023-11-25 | LIVB_PTH ---
PATIENT: SLIME SABA LOC: CT U#:[id number] AGE/SX: 28/F ROOM: RE11/25/[address]: SUZANNA Chavez : 1995 BED: DIS: 11/25/2023 SPEC #: [id number] RECD: 11/25/23 09:13 STATUS: BERNARD REMica #: [id number] JESSICA: 11/25/23 00:[address]: Laurence Mccrary DEPT: SURGICAL PATHOLOGY RECD BY: Lilian Anton ENTERED: 11/25/23 10:50 SP TYPE: LIVER BX OTHR DR: Starla Lane PA-C Tissues: Liver, NOS Procedures: PAS with Diastase (control) Trichrome (control) Special Stain Group I PAS Stain (control) Surgery Specimen Level V Retic (control) Iron Stain (control) HEADER OPERATION: CT guided liver biopsy PRE-OP DIAGNOSIS: Elevated liver enzymes TISSUE SUBMITTED: 18 gauge x 3 cores MICROSCOPIC DIAGNOSIS Liver, CT guided core biopsy: Chronic hepatitis, Grade 2 and stage 2. See microscopic description and comment. 11/26/2023 COMMENT Correlation with clinical, radiologic, laboratory findings and appropriate follow up are necessary. MICROSCOPIC DESCRIPTION Slides are reviewed. This specimen shows liver parenchymal tissue with preserved lobular architecture. Hepatocytes show moderate to marked macro- and microvesicular steatosis. Reactive changes are also noted. Mild to moderate lobular inflammation is also present. Portal area shows moderate chronic inflammation, consistent predominantly of lymphocytes. Focal minimal bile duct destruction/inflammation (cholangitis) is also noted. Mild interface inflammation is also present. Iron stains show absent iron. Reticulin stain shows preserved lobular architecture. Trichrome stains show increased poral, periportal, and focal minimal bridging fibrosis. Obvious cirrhosis is not seen. PAS stain with and without diastase do not show any abnormal accumulation of protein. All stains are performed with appropriate matched controls. GROSS DESCRIPTION Received is one container labeled with the patient's name and not further designated. The specimen consists of multiple elongated fragments of adamson soft tissue measuring in aggregate 1.5 x 0.3 x 0.1cm. SJ.mr 11/25/2023 TC:3 CPT:75214,58594v7
[2023-11-25 07:42] LABS: Platelet Count 259 K/mm3 (150-450)
[2023-11-25 07:55] LABS: Prothrombin Time (Protime)PT. 13.5 SECONDS (11.7-14.9)
[2023-11-25 07:56] LABS: Partial Thromboplast Time 31.6 Seconds (24.1-36.2)
[2023-11-25] MEDS: Midazolam 2 MG/2 ML Syringe IV (08:45)
[2023-11-25] MEDS: 0.9% Normal Saline (250mL Bag) 250 ML 15 ML IV (08:45)
[2023-11-25] MEDS: fentaNYL 100 MCG/2 ML Ampul IV (08:49)
[2023-11-25] MEDS: Lidocaine 2% (20 ml mdv) 20 ML Vial INFILT (08:58)
--- NOTE | 2023-11-25 09:30 | PCM.OP.PRO ---
Procedure Report Date of Procedure: 11/25/23 Assessment & Plan Assessment/Plan (1) Hepatitis: (2) Elevated liver enzymes: PLAN: PROCEDURE: CT DIRECTED CORE LIVER BIOPSY ORDERING PROVIDER: Laurence Mccrary PA-C INDICATION: Female, 28 years old. Elevated liver enzymes. PROVIDER: ENDER Schrader CONSENT: Written informed consent was obtained having explained the risks, benefits and alternatives in detail with the patient who accepted the risks and agreed to proceed. Laboratory review and clinical assessment was performed. PRE-PROCEDURE SEDATION ASSESSMENT: Current history and physical dictated by referring provider and reviewed. No clinical changes since date of exam. Patient has a Mallampati Score of Class 1 and ASA Class of 3. PROCEDURAL SEDATION PROTOCOL: The Drugs used were: 2 mg Versed, IV, and 50 mcg Fentanyl, IV. The sedation time was: Starting at 8:45 AM and terminated at 9:06 AM. The procedural sedation protocol was independently monitored by the department nurse. RADIATION DOSAGE (If Supplied By Facility): CTDIvol = 24.07 mGy, DLP = 618.80 mGycm Individualized dose optimization techniques were used for this CT. TECHNIQUE The patient was placed in a supine position. Using CT image guidance with image documentation, a suitable location in the right lobe of the liver was identified. The skin surface was prepped with chlorhexidine and draped in a sterile fashion. 2% lidocaine was used for local anesthesia. Using an anterior approach, puncture of the liver was uneventful with an 18-gauge core needle system. 3, 18-gauge core samples were obtained, and submitted in formalin to the pathologist for further assessment. The needle was removed. An occlusive sterile dressing was applied. Patient tolerated the procedure well, and returned to the holding bay for nursing monitoring. IMPRESSION: CT directed core needle biopsy of the liver, using CT image guidance with image documentation as described. Procedural Sedation protocol utilized with independent monitoring. Procedures Radiology Radiology US Procedures: 70215 Liver Biopsy Multi Select Codes Radiology Radiology CT Procedures: 87166-55 CT guidance parenchymal tissue
== END | disposition home or self-care (01) ==
LOC: CT 07:33
PROVIDERS: PCP Family Medicine; Referring Provider Student in an Organized Health Care Education/Training Program; Visit Provider Student in an Organized Health Care Education/Training Program
DX: K73.9 Chronic hepatitis, unspecified (principal); I10 Essential (primary) hypertension; D64.9 Anemia, unspecified; K58.9 Irritable bowel syndrome, unspecified; Z87.19 Personal history of other diseases of the digestive system; Z90.49 Acquired absence of other specified parts of digestive tract; Z98.84 Bariatric surgery status; Z79.899 Other long term (current) drug therapy
CPT/HCPCS: 47000; 36415; 77012; 85049; 85610; 85730; 88307; 88312; 99156; J7050

== ENCOUNTER → 2023-12-17 | Outpatient (CLI) | payer MEDICAID, SELFPAY ==
[2023-12-17 16:03] LABS: Absolute Lymphocyte Count 2.04 X10^3/uL (0.83-4.51); Absolute Neutrophil Count 2.9 X10^3/uL (2.0-7.7); Basophil# 0.03 X10^3/uL; Basophil% 0.6 % (0-1); Eosinophil# 0.03 X10^3/uL; Eosinophils% 0.6 % (0-5); Hematocrit 37.1 % (37-47); Hemoglobin 11.4 g/dL (12.0-15.0); Lymphocyte # 2.04 X10^3/ul (0.83-4.51); Mean Corp Hgb Conc 30.7 g/dL (32-36); Mean Corpuscular Hgb 22.7 pg (27.0-32.0); Mean Corpuscular Volume 73.9 fL (81-99); Mean Platelet Vol. 10.3 fl (6.2-12.0); Monocyte# 0.38 X10^3/uL; Monocyte% 7.1 % (0-10); NRBC Flagged by Analyzer 0 % (0-5); Neutrophil # 2.87 X10^3/uL (2.7-7.7); Neutrophil % 53.3 % (47-70); Platelet Count 344 K/mm3 (150-450); RBC Distribution Width SD 42.7 fl (35.1-43.9); Red Blood Count 5.02 M/mm3 (4.2-5.4); White Blood Count 5.4 K/mm3 (4.4-11.0)
[2023-12-17 16:26] LABS: ALB/GLOB Ratio 0.9 RATIO (0.9-2.4); AST(SGOT) 27 U/L (15-37); Alanine Aminotransfer ALT/SGPT 30 U/L (13-56); Albumin, Serum 3.6 g/dL (3.2-5.0); Alkaline Phosphatase 75 U/L (45-117); Anion Gap 7 (5-15); BUN 8 mg/dL (7-18); BUN/Creat Ratio 12.4 RATIO (10-20); Bilirubin, Direct 0.32 mg/dL (0.00-0.30); Calcium,Total 9.4 mg/dL (8.5-10.1); Chloride 110 mmol/L (98-107); Creatinine, Serum 0.65 mg/dL (0.55-1.02); EST Glomerular Filtration Rate 116 mL/min (>60); Est Glom Filt Rate - Afr Amer 140 mL/min (>60); Glucose 86 mg/dL (74-106); Potassium 3.7 mmol/L (3.5-5.1); Protein, Total 7.6 g/dL (6.4-8.2); Sodium Level 141 mmol/L (136-145)
== END | disposition home or self-care (01) ==
LOC: WOBLAB 15:41
PROVIDERS: Student in an Organized Health Care Education/Training Program; PCP Family Medicine; Referring Provider Obstetrics & Gynecology; Visit Provider Obstetrics & Gynecology
DX: K75.9 Inflammatory liver disease, unspecified (principal)
CPT/HCPCS: 36415; 80053; 82248; 85025

== ENCOUNTER → 2023-12-22 | Outpatient (CLI) | payer MEDICAID, SELFPAY ==
--- NOTE | 2023-12-22 15:03 | MRI_ITS ---
EXAM: MR ABDOMEN WITHOUT INTRAVENOUS CONTRAST, MRCP PROTOCOL CLINICAL INDICATION: elevated licer enzymes, complications from gastric bypass TECHNIQUE: Multiplanar and multisequence MR images of the abdomen without intravenous contrast obtained with MRCP sequence. Three-dimensional post-processing reconstructions were performed. COMPARISON: CT scan of the abdomen and pelvis 07/04/2022. FINDINGS: LOWER THORAX: Unremarkable. No pleural effusion. LIVER: Unremarkable. Normal morphology. GALLBLADDER AND BILE DUCTS: Cholecystectomy. No intra- or extrahepatic biliary ductal dilation. No choledochal filling defect. PANCREAS: Unremarkable. No focal cystic mass. No pancreatic duct dilation. SPLEEN: Unremarkable. Non-enlarged. ADRENALS: Unremarkable. No nodules. KIDNEYS AND URETERS: Unremarkable. Normal renal size and position. No hydronephrosis. STOMACH AND BOWEL: Status post gastric bypass surgery. No obstruction. INTRAPERITONEAL SPACE: Unremarkable. No ascites or other fluid collection. VASCULATURE: Unremarkable. Abdominal aorta is non-dilated. LYMPH NODES: No enlarged lymph nodes. MRI/MRCP Abdomen without Contrast IMPRESSION: 1. Cholecystectomy. 2. No biliary dilatation. 3. Status post gastric bypass surgery. No obstruction. Electronically Signed: Dayton Joe MD at 8:03 EDT ,
== END | disposition home or self-care (01) ==
LOC: MRI 15:01
PROVIDERS: PCP Family Medicine; Referring Provider Student in an Organized Health Care Education/Training Program; Visit Provider Student in an Organized Health Care Education/Training Program
DX: R74.8 Abnormal levels of other serum enzymes (principal)
CPT/HCPCS: 74181

== ENCOUNTER → 2024-02-28 | Outpatient (CLI) | payer MEDICAID, SELFPAY ==
[2024-02-28 19:26] LABS: hCG Titer Quant., Serum 21 mIU/mL (1-3)
== END | disposition home or self-care (01) ==
LOC: LAB 17:56
PROVIDERS: PCP Family Medicine; Referring Provider Obstetrics & Gynecology; Visit Provider Obstetrics & Gynecology
DX: O20.9 Hemorrhage in early pregnancy, unspecified (principal); Z3A.00 Weeks of gestation of pregnancy not specified
CPT/HCPCS: 36415; 84702

== ENCOUNTER → 2024-03-01 | Outpatient (CLI) | payer MEDICAID, SELFPAY ==
[2024-03-01 17:43] LABS: hCG Titer Quant., Serum 24 mIU/mL (1-3)
== END | disposition home or self-care (01) ==
LOC: LAB 16:41
PROVIDERS: PCP Family Medicine; Referring Provider Obstetrics & Gynecology; Visit Provider Obstetrics & Gynecology
DX: O20.9 Hemorrhage in early pregnancy, unspecified (principal); Z3A.00 Weeks of gestation of pregnancy not specified
CPT/HCPCS: 36415; 84702

== ENCOUNTER → 2024-03-02 | Outpatient (CLI) | payer MEDICAID, SELFPAY ==
--- NOTE | 2024-03-02 07:02 | US_ITS ---
INDICATION: liver lesion EXAMINATION: Ultrasound US Abdomen Limited (quadrant) TECHNIQUE: Moore scale and color doppler imaging was performed of the right upper quadrant. COMPARISON: CT dated May 04, 2022 and MRI dated December 22, 2023 FINDINGS: LIVER: The liver is diffusely echogenic consistent with fatty infiltration. No focal hepatic lesion. There is no free fluid. GALLBLADDER AND BILIARY TREE: The gallbladder is surgically absent. The proximal common bile duct measures 5.1 mm, which is within normal limits for the patient''s age. PANCREAS: No focal abnormality is demonstrated in the pancreas. No pancreatic ductal dilatation. The right kidney measures 12.5 cm in length and is within normal limits. US/Liver IMPRESSION: Fatty infiltration of the liver. Electronically Signed: Lara Goldsmith MD at 10:48 EST ,
== END | disposition home or self-care (01) ==
LOC: US 07:01
PROVIDERS: PCP Family Medicine; Referring Provider Student in an Organized Health Care Education/Training Program; Visit Provider Student in an Organized Health Care Education/Training Program
DX: K76.9 Liver disease, unspecified (principal)
CPT/HCPCS: 76705

== ENCOUNTER → 2024-03-03 | Outpatient (CLI) | payer MEDICAID, SELFPAY ==
[2024-03-03 17:02] LABS: Hematocrit 37.8 % (37-47); Hemoglobin 11.6 g/dL (12.0-15.0); Mean Corp Hgb Conc 30.7 g/dL (32-36); Mean Corpuscular Hgb 20.8 pg (27.0-32.0); Mean Corpuscular Volume 67.9 fL (81-99); Mean Platelet Vol. 10.6 fl (6.2-12.0); Platelet Count 415 K/mm3 (150-450); RBC Distribution Width CV 15.9 % (11.6-14.6); RBC Distribution Width SD 38.2 fl (35.1-43.9); Red Blood Count 5.57 M/mm3 (4.2-5.4)
[2024-03-03 17:37] LABS: hCG Titer Quant., Serum 26 mIU/mL (1-3)
[2024-03-06 14:08] LABS: Anti-Cardiolipin Ab, IgG, Qn < 9 GPL U/mL (0-14); Anti-Cardiolipin Ab, IgM, Qn < 9 MPL U/mL (0-12); Beta-2-Glycoprotein I IgA <9 (0-25); Beta-2-Glycoprotein I IgG <9 (0-20); Beta-2-Glycoprotein I IgM <9 (0-32); Dilute Prothrombin Time (dPT) 30.2 sec (0.0-47.6); Dilute Russell Viper Venom 27.5 sec (0.0-47.0); Interpretation Comment: (.); PTT-LA 37.5 sec (0.0-43.5); Thrombin Time 19.5 sec (0.0-23.0); dPT Confirm Ratio 0.93 Ratio (0.00-1.34)
== END | disposition home or self-care (01) ==
LOC: LAB 16:36
PROVIDERS: PCP Family Medicine; Referring Provider Obstetrics & Gynecology; Visit Provider Obstetrics & Gynecology
DX: O03.4 Incomplete spontaneous abortion without complication (principal); N96 Recurrent pregnancy loss
CPT/HCPCS: 36415; 84702; 85027; 86146; 86147

== ENCOUNTER → 2024-03-09 | Outpatient (CLI) | payer MEDICAID, SELFPAY ==
[2024-03-09 14:26] LABS: hCG Titer Quant., Serum 46 mIU/mL (1-3)
== END | disposition home or self-care (01) ==
LOC: LAB 13:25
PROVIDERS: Obstetrics & Gynecology; PCP Family Medicine; Referring Provider Obstetrics & Gynecology; Visit Provider Obstetrics & Gynecology
DX: O20.9 Hemorrhage in early pregnancy, unspecified (principal); Z3A.00 Weeks of gestation of pregnancy not specified
CPT/HCPCS: 36415; 84702

== ENCOUNTER 2024-03-10 15:01 | Emergency (ER) | payer MEDICAID, SELFPAY ==
[2024-03-10 15:02] VITALS: BP 135/94; PULSE 102; RESP 16; TEMP 36.4; O2SAT 98; BMI 42.3
--- NOTE | 2024-03-10 15:13 | ED.VIS.FEGU ---
HPI HPI - Female History of Present Illness Chief Complaint: Narrative Narrative: Patient is a 28-year-old female 9 miscarriages no previous ectopic pregnancies who presents to the emergency department with a chief complaint of being sent in by her [employer]. She states that she was diagnosed with a ectopic and noted that she came here for a shot of medicine. Patient has no other complaints at this point time. PFSH PFSH Medical History IUD (intrauterine device) in place Wears glasses Anxiety Kidney stones Anemia Back pain Injury of back Syncope History of GI bleed Leg cramps History of Holter monitoring History of echocardiogram Hypertension Blood per rectum Palpitations Nausea Calculus of kidney SOB (shortness of breath) Right flank pain Elevated platelet count Abdominal pain macrosomia depression Gestational HTN Home Medications ?Medication ?Instructions ?Recorded ?Last Taken ?Type calcium citrate 500 mg PO TID 10/19/23 Unknown History metoprolol tartrate 25 mg tablet 25 mg PO BID 10/19/23 Unknown History [id number] 45 mg-folic 1 cap PO DAILY RNY gastric bypass 11/10/23 Unknown History acid 800 mcg-vit K 120 mcg capsule (Bariatric Multivitamins) Allergy/AdvReac Type Severity Reaction Status Date / Time NSAIDS (Non-Steroidal AdvReac PT UNSURE Verified 03/10/24 15:03 Anti-Inflamma OF REACTION Family History Mother Skin cancer Surgical History H/O gastric bypass Hx of hernia repair History of cholecystectomy History of surgery Social History adopted: No household members: children housing: house number of children: 4 current occupational status: employed current occupation: [employer] sexually active: Yes Smoking Status: Never smoker alcohol intake: never substance use type: does not use seatbelt use: always do you feel safe at home: Yes 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 Patient lying in bed rest comfortably did not appear to be acute distress Head: Atraumatic, normocephalic Eyes: PERRL bilaterally, EOMI bilaterally, no conjunctival injection noted Neck: Soft, supple, trachea midline Cardiovascular: Regular rate and rhythm no murmurs gallops rubs noted Respiratory: Clear to auscultation bilaterally Abdomen: Soft, nondistended, nontender to palpation, bowel sounds present x 4, no rebound or guarding on exam Extremities: +5/5 strength noted in the bilateral upper and lower extremities, radial pulses +2/4 in the bilateral upper extremities Neurological: Patient following commands knew that she was at [facility] year is 2024. Skin: Warm, dry, intact Const Vital Signs: 03/10/24 15:02 03/10/24 17:01 Temperature 97.5 F L Temperature Source Temporal Pulse Rate 102 H 96 Respiratory Rate 16 18 Blood Pressure 135/94 H 128/86 H Blood Pressure Mean 107 100 Pulse Ox 98 98 Oxygen Delivery Method Room Air Room Air MDM MDM MDM Narrative Medical decision making narrative: Patient is a 28-year-old female who presents to the emergency department chief complaint of needing methotrexate injection for an ectopic . Patient follows with Dr. Wang who has been following her as they are concerned for an early ectopic . Per her physician and they were requesting a CBC and CMP be checked and if her blood work remains normal to give her a shot of methotrexate. They noted that her quant went from 26-40 5 over 8-week. Patient CBC was reviewed and was largely unremarkable no evidence leukocytosis white blood count was 7.2, hemoglobin 12.4, patient does have evidence of microcytic anemia with MCV of 68.2, sodium normal 137, potassium normal 3.5, creatinine normal at 0.70. Patient's AST and ALT were 22 and 31 respectively. Patient's urinalysis did not show any evidence infection. At this point time we will order methotrexate. Methotrexate was ordered and no came down from the pharmacy I administered the medication there was 2 syringes. 1 in each shoulder patient tolerated this well no complications. She was observed here in the emergency department no complications. On reevaluation the patient she is doing well no complications. She would like to go home at this point time. She is advised to follow-up with her [employer] in the outpatient setting. She is encouraged return with worse symptoms or any concerns. She is agreed this plan all question concerns answered she is discharged home in stable condition. Lab Data Labs: Laboratory Results - last 24 hr 03/10/24 03/10/24 15:13 15:27 WBC 7.2 RBC 5.97 H Hgb 12.4 Hct 40.7 MCV 68.2 L MCH 20.8 L MCHC 30.5 L RDW Std Deviation 39.2 RDW Coeff of Nathaniel 17.2 H Plt Count 459 H MPV 11.3 Immature Gran % (Auto) 0.300 Neut % (Auto) 63.7 Lymph % (Auto) 29.2 Winn % (Auto) 5.6 Eos % (Auto) 0.8 Baso % (Auto) 0.4 Absolute Neuts (auto) 4.6 Absolute Lymphs (auto) 2.09 Nucleated RBC % 0 Sodium 137 Potassium 3.5 Chloride 103 Carbon Dioxide 28.0 Anion Gap 6 BUN 8 Creatinine 0.70 Estim Creat Clear Calc 157.00 Est GFR (MDRD) Af Amer 127 Est GFR (MDRD) Non-Af 105 BUN/Creatinine Ratio 11.4 Glucose 94 Calcium 9.4 Total Bilirubin 0.60 AST 22 ALT 31 Alkaline Phosphatase 87 Total Protein 8.4 H Albumin 4.0 Globulin 4.4 H Albumin/Globulin Ratio 0.9 Urine Color Yellow Urine Clarity Sl. Cloudy Urine pH 7.0 Ur Specific [place] 1.010 Urine Protein 15 H Urine Glucose (UA) Normal Urine Ketones Negative Urine Occult Blood Negative Urine Nitrite Negative Urine Bilirubin Negative Urine Urobilinogen 4 H Ur Leukocyte Esterase 25 H Urine RBC 0 SEEN Urine WBC 0-5 SEEN Ur Squamous Epith Cells 5-10 SEEN Urine Bacteria 1+ Fine Granular Casts 0-5 SEEN Urine Mucus 0 SEEN Discharge Plan Triage Chief Complaint: ED Provider: Fernando Al Dx/Rx/DC Orders Clinical Impression: Ectopic Prescriptions: No Action calcium citrate 250 mg calcium tablet 500 mg PO TID metoprolol tartrate 25 mg tablet 25 mg PO BID Bariatric Multivitamins 45 mg iron- 800 mcg-120 mcg capsule 1 cap PO DAILY Primary Care Provider: Starla Lane Referrals: Starla Lane PAChelseaC [Primary Care Provider] - Activity Restrictions/Additional Instructions: Follow-up with your [employer] in outpatient setting. Return for symptoms or any concerns. You were given methotrexate here in the emergency department Print Language: Tamazight Disposition Disposition: Home, Self Care
[2024-03-10 15:23] LABS: Absolute Lymphocyte Count 2.09 X10^3/uL (0.83-4.51); Absolute Neutrophil Count 4.6 X10^3/uL (2.0-7.7); Basophil# 0.03 X10^3/uL; Basophil% 0.4 % (0-1); Eosinophil# 0.06 X10^3/uL; Eosinophils% 0.8 % (0-5); Hematocrit 40.7 % (37-47); Hemoglobin 12.4 g/dL (12.0-15.0); Lymphocyte # 2.09 X10^3/ul (0.83-4.51); Lymphocyte % 29.2 % (19-41); Mean Corp Hgb Conc 30.5 g/dL (32-36); Mean Corpuscular Hgb 20.8 pg (27.0-32.0); Mean Corpuscular Volume 68.2 fL (81-99); Mean Platelet Vol. 11.3 fl (6.2-12.0); Monocyte% 5.6 % (0-10); NRBC Flagged by Analyzer 0 % (0-5); Neutrophil # 4.55 X10^3/uL (2.7-7.7); Neutrophil % 63.7 % (47-70); POSITIVE MORPHOLOGY YES; Platelet Count 459 K/mm3 (150-450); RBC Distribution Width CV 17.2 % (11.6-14.6); RBC Distribution Width SD 39.2 fl (35.1-43.9); Red Blood Count 5.97 M/mm3 (4.2-5.4); White Blood Count 7.2 K/mm3 (4.4-11.0)
[2024-03-10 15:34] LABS: Mucous, Urine 0 SEEN /hpf (<or=2+); Red Blood Cells-Urine 0 SEEN /hpf (0-5)
[2024-03-10 15:39] LABS: Color, Urine Yellow (Yellow); Glucose, Dipstick Normal (Normal); Ketone-Dipstick Negative (Negative); Leukocyte Esterase-Dipstick 25 /ul (Negative); Nitrite-Dipstick Negative (Negative); Occult Blood-Urine Negative /ul (Negative); Protein-Dipstick 15 mg/dl (Negative); Urine Bilirubin Dipstick Negative (Negative); Urine Clarity Sl. Cloudy (Clear); Urine Urobilinogen 4 mg/dl (Normal)
[2024-03-10 15:40] LABS: ALB/GLOB Ratio 0.9 RATIO (0.9-2.4); AST(SGOT) 22 U/L (15-37); Alanine Aminotransfer ALT/SGPT 31 U/L (13-56); Alkaline Phosphatase 87 U/L (45-117); Anion Gap 6 (5-15); BUN 8 mg/dL (7-18); BUN/Creat Ratio 11.4 RATIO (10-20); Calcium,Total 9.4 mg/dL (8.5-10.1); Chloride 103 mmol/L (98-107); EST Glomerular Filtration Rate 105 mL/min (>60); Est Glom Filt Rate - Afr Amer 127 mL/min (>60); Globulin 4.4 g/dL (2.2-4.2); Glucose 94 mg/dL (74-106); Potassium 3.5 mmol/L (3.5-5.1); Protein, Total 8.4 g/dL (6.4-8.2); Sodium Level 137 mmol/L (136-145)
[2024-03-10 16:32] LABS: Bacteria 1+ /hpf (None Seen); Squamous Epithelial Cells - UA 5-10 SEEN /hpf (5-10); White Blood Cells 0-5 SEEN /hpf (0-5)
[2024-03-10 16:33] LABS: Fine Granular Cast- Urine 0-5 SEEN /lpf (0-5)
[2024-03-10] MEDS: METHOTREXATE IM (16:49)
[2024-03-10 17:01] VITALS: BP 128/86; PULSE 96; RESP 18; O2SAT 98
[2024-03-10 17:34] VITALS: BP 131/69; PULSE 72; RESP 15; TEMP 36.4; O2SAT 98
== END 2024-03-10 17:44 | disposition home or self-care (01) ==
PROVIDERS: Emergency Provider Emergency Medicine; PCP Family Medicine; Visit Provider Emergency Medicine
DX: O16.9 Unspecified maternal hypertension, unspecified trimester (principal); O99.019 Anemia complicating pregnancy, unspecified trimester; D50.9 Iron deficiency anemia, unspecified; O00.90 Unspecified ectopic pregnancy without intrauterine pregnancy; Z98.84 Bariatric surgery status; Z79.899 Other long term (current) drug therapy
CPT/HCPCS: 80053; 81001; 85025; 96372; 99283; A4216; J9260

== ENCOUNTER → 2024-03-13 | Outpatient (CLI) | payer MEDICAID, SELFPAY ==
[2024-03-13 13:44] LABS: hCG Titer Quant., Serum 36 mIU/mL (1-3)
== END | disposition home or self-care (01) ==
LOC: LAB 12:59
PROVIDERS: PCP Family Medicine; Referring Provider Obstetrics & Gynecology; Visit Provider Obstetrics & Gynecology
DX: O03.4 Incomplete spontaneous abortion without complication (principal)
CPT/HCPCS: 36415; 84702

== ENCOUNTER → 2024-04-18 | Outpatient (CLI) | payer MEDICAID, SELFPAY ==
[2024-04-18 19:18] LABS: hCG Titer Quant., Serum 67 mIU/mL (<9 non-preg)
== END | disposition home or self-care (01) ==
LOC: LAB 17:10
PROVIDERS: PCP Family Medicine; Referring Provider Obstetrics & Gynecology; Visit Provider Obstetrics & Gynecology
DX: N91.2 Amenorrhea, unspecified (principal)
CPT/HCPCS: 84702

== ENCOUNTER → 2024-04-20 | Outpatient (CLI) | payer MEDICAID, SELFPAY ==
[2024-04-20 19:10] LABS: hCG Titer Quant., Serum 174 mIU/mL (<9 non-preg)
== END | disposition home or self-care (01) ==
LOC: LAB 17:06
PROVIDERS: PCP Family Medicine; Referring Provider Obstetrics & Gynecology; Visit Provider Obstetrics & Gynecology
DX: N91.2 Amenorrhea, unspecified (principal)
CPT/HCPCS: 36415; 84702

== ENCOUNTER → 2024-04-21 | Outpatient (CLI) | payer MEDICAID, SELFPAY ==
[2024-04-21 10:10] LABS: ALB/GLOB Ratio 1.3 RATIO (0.9-2.4); AST(SGOT) 19 U/L (<=31); Alanine Aminotransfer ALT/SGPT 19 U/L (<=34); Albumin, Serum 4.1 g/dL (3.5-5.0); Alkaline Phosphatase 74 U/L (35-104); Anion Gap 9 (5-15); BUN 8 mg/dL (4-19); Calcium 9.3 mg/dL (7.6-11.0); Carbon Dioxide 24.6 mmol/L (22.0-29.0); Chloride 104 mmol/L (96-108); EST Glomerular Filtration Rate 125 (>60); Globulin 3.2 g/dL (2.2-4.2); Glucose 92 mg/dL (70-99); Potassium 4.3 mmol/L (3.3-5.1); Protein, Total 7.3 g/dL (5.9-8.4); Sodium Level 138 mmol/L (133-145); Total Bilirubin 0.62 mg/dL (0.00-1.30)
== END | disposition home or self-care (01) ==
LOC: LAB 09:26
PROVIDERS: PCP Family Medicine; Referring Provider Student in an Organized Health Care Education/Training Program; Visit Provider Student in an Organized Health Care Education/Training Program
DX: R74.8 Abnormal levels of other serum enzymes (principal)
CPT/HCPCS: 36415; 80053

== ENCOUNTER → 2024-05-01 | Outpatient (CLI) | payer MEDICAID, SELFPAY ==
--- NOTE | 2024-05-01 15:42 | US_ITS ---
PROCEDURE: TRANSVAGINAL W/PREG US REASON FOR EXAM: VIABILITY COMPARISON: None. FINDINGS: Comments: LMP: March 21, 2024. Number of Gestational Sacs: 1 Gestational Sac Shape: Normal Yolk Sac: Present and unremarkable. Placenta: Presently not well-visualized Amniotic Fluid Volume: Subjectively normal for gestational age. Uterine Abnormalities: Maternal uterus is unremarkable. Ovaries / Adnexa: Both maternal ovaries are visualized and unremarkable. DIMENSIONS: Parameter Measurement / EGA [place] Rump Length: Not visualized at this time. Gestational Sac: 1.1 cm/5 weeks and 6 days Yolk Sac: 3 mm/ ESTIMATED GESTATIONAL AGE: By Ultrasound: 5 weeks and 6 days By LMP: 5 weeks and 6 days ESTIMATED DATE OF DELIVERY: By Ultrasound: December 26, 2024 By LMP: December 26, 2024 US/Transvaginal w/Preg US IMPRESSION: Intrauterine gestation with a mean gestational age of 5 weeks and 6 days. Embr yonic heart rate not detected at this time. Follow-up recommended. Reading Location: [place] [id number]
== END | disposition home or self-care (01) ==
LOC: US 15:42
PROVIDERS: PCP Family Medicine; Referring Provider Nurse Practitioner Women's Health; Visit Provider Nurse Practitioner Women's Health
DX: O20.9 Hemorrhage in early pregnancy, unspecified (principal); N96 Recurrent pregnancy loss
CPT/HCPCS: 76817

== ENCOUNTER → 2024-05-02 | Outpatient (CLI) | payer MEDICAID, SELFPAY ==
[2024-05-02 19:30] LABS: hCG Titer Quant., Serum 9318 mIU/mL (<9 non-preg)
== END | disposition home or self-care (01) ==
LOC: LAB 18:27
PROVIDERS: PCP Family Medicine; Referring Provider Obstetrics & Gynecology; Visit Provider Obstetrics & Gynecology
DX: Z34.90 Encounter for supervision of normal pregnancy, unspecified, unspecified trimester (principal)
CPT/HCPCS: 36415; 84702

== ENCOUNTER → 2024-05-05 | Outpatient (CLI) | payer MEDICAID, SELFPAY ==
[2024-05-05 18:16] LABS: hCG Titer Quant., Serum 17087 mIU/mL (<9 non-preg)
== END | disposition home or self-care (01) ==
LOC: LAB 16:57
PROVIDERS: PCP Family Medicine; Referring Provider Obstetrics & Gynecology; Visit Provider Obstetrics & Gynecology
DX: N91.2 Amenorrhea, unspecified (principal)
CPT/HCPCS: 36415; 84702

== ENCOUNTER → 2024-05-09 | Outpatient (CLI) | payer MEDICAID, SELFPAY ==
--- NOTE | 2024-05-09 12:54 | US_ITS ---
PROCEDURE: TRANSVAGINAL W/PREG US 05/09/2024 REASON FOR EXAM: DATING TECHNIQUE: Transvaginal. COMPARISON: Comparison is made with prior study dated May 01, 2024. FINDINGS: Number of Gestational Sacs: 1 Gestational Sac Shape: Normal Number of Fetuses: 1 Heart Rate: 130 beats per minute (average) Yolk Sac: Present and unremarkable. Placenta: Presently not well-visualized Amniotic Fluid Volume: Subjectively normal for gestational age. Uterine Abnormalities: Maternal uterus is unremarkable. Ovaries / Adnexa: Both maternal ovaries are visualized and unremarkable. DIMENSIONS: Parameter Measurement / EGA [place] Rump Length: 7.3 mm/6 weeks and 5 days Gestational Sac: 2 cm/6 weeks and 6 days Yolk Sac: 2.9 mm/ ESTIMATED GESTATIONAL AGE: By Ultrasound: 6 weeks and 6 days By LMP: 7 weeks and 0 days ESTIMATED DATE OF DELIVERY: By Ultrasound: December 27, 2024 By LMP: December 26, 2024 US/Transvaginal w/Preg US IMPRESSION: Live intrauterine gestation with a mean gestational age of 6 weeks and 6 days. Reading Location: [place] [id number]
== END | disposition home or self-care (01) ==
LOC: US 12:53
PROVIDERS: PCP Family Medicine; Referring Provider Obstetrics & Gynecology; Visit Provider Obstetrics & Gynecology
DX: N91.2 Amenorrhea, unspecified (principal)
CPT/HCPCS: 76817

== ENCOUNTER → 2024-05-25 | Outpatient (CLI) | payer MEDICAID, SELFPAY ==
--- NOTE | 2024-05-25 15:05 | US_ITS ---
PROCEDURE: TRANSVAGINAL W/PREG US 05/25/2024 REASON FOR EXAM: PELVIC PAIN TECHNIQUE: Transvaginal. FINDINGS: Number of Gestational Sacs: 1 Gestational Sac Shape: Normal Number of Fetuses: 1 Heart Rate: 183 beats per minute (average) Yolk Sac: Present and unremarkable. Placenta: Presently not well-visualized Amniotic Fluid Volume: Subjectively normal for gestational age. Uterine Abnormalities: Maternal uterus is unremarkable. Ovaries / Adnexa: Both maternal ovaries are visualized and unremarkable. DIMENSIONS: Parameter Measurement / EGA [place] Rump Length: 2.4 cm/8 weeks and 6 days. Gestational Sac: 3.8 cm/9 weeks and 1 day Yolk Sac: 4 mm/ ESTIMATED GESTATIONAL AGE: By Ultrasound: 9 weeks and 0 days By LMP: 9 weeks and 1 day ESTIMATED DATE OF DELIVERY: By Ultrasound: December 28, 2024 By LMP: December 27, 2024 US/Transvaginal w/Preg US IMPRESSION: UNREMARKABLE FIRST TRIMESTER ULTRASOUND with a gestational age of 9 weeks and 0 days.. Reading Location: [id number]
== END | disposition home or self-care (01) ==
LOC: US 15:05
PROVIDERS: PCP Family Medicine; Referring Provider Obstetrics & Gynecology; Visit Provider Obstetrics & Gynecology
DX: R10.2 Pelvic and perineal pain (principal)
CPT/HCPCS: 76817

== ENCOUNTER → 2024-05-29 | Outpatient (CLI) | payer MEDICAID, SELFPAY ==
[2024-05-29 11:23] LABS: Absolute Neutrophil Count 5.2 X10^3/uL (2.0-7.7); Basophil# 0.02 X10^3/uL; Basophil% 0.3 % (0-1); Eosinophil# 0.04 X10^3/uL; Eosinophils% 0.5 % (0-5); Hematocrit 38.8 % (37-47); Hemoglobin 12.1 g/dL (12.0-15.0); Lymphocyte % 22.9 % (19-41); Mean Corp Hgb Conc 31.2 g/dL (32-36); Mean Corpuscular Hgb 23.6 pg (27.0-32.0); Mean Corpuscular Volume 75.8 fL (81-99); Mean Platelet Vol. 11.1 fl (6.2-12.0); Monocyte% 5.4 % (0-10); NRBC Flagged by Analyzer 0 % (0-5); Neutrophil # 5.23 X10^3/uL (2.7-7.7); Neutrophil % 70.5 % (47-70); POSITIVE MORPHOLOGY YES; Platelet Count 327 K/mm3 (150-450); RBC Distribution Width CV 20.4 % (11.6-14.6); RBC Distribution Width SD 54.9 fl (35.1-43.9); Red Blood Count 5.12 M/mm3 (4.2-5.4); White Blood Count 7.4 K/mm3 (4.4-11.0)
[2024-05-29 11:31] LABS: Differential Indicated SCAN CRITERIA MET
[2024-05-29 11:34] LABS: Hemoglobin A1c 5.1 % (<=5.6)
[2024-05-29 12:30] LABS: ALB/GLOB Ratio 1.3 RATIO (0.9-2.4); AST(SGOT) 20 U/L (<=31); Alanine Aminotransfer ALT/SGPT 21 U/L (<=34); Albumin, Serum 3.9 g/dL (3.5-5.0); Alkaline Phosphatase 55 U/L (35-104); Anion Gap 14 (5-15); BUN 8 mg/dL (4-19); BUN/Creat Ratio 13.4 RATIO (10-20); Calcium,Total 8.9 mg/dL (7.6-11.0); Carbon Dioxide 19.3 mmol/L (21.0-32.0); Chloride 103 mmol/L (98-108); Creatinine, Serum 0.56 mg/dL (0.70-1.20); EST Glomerular Filtration Rate 127 (>60); Glucose 80 mg/dL (70-99); HIV Nonreactive (Nonreactive); Hepatitis B Surface Antigen Nonreactive (Nonreactive); Hepatitis C Antibody Nonreactive (Nonreactive); Potassium 3.6 mmol/L (3.3-5.1); Protein, Total 6.8 g/dL (5.9-8.4); Rubella IgG REAC (Nonreactive); Sodium Level 136 mmol/L (133-145); Syphilis Antibodies Nonreactive (Nonreactive); Total Bilirubin 0.38 mg/dL (0.00-1.30)
[2024-05-29 12:55] LABS: Platelet Estimate ADEQUATE (ADEQ)
[2024-05-29 14:23] LABS: Protein, Urine (Random) 23.1 mg/dL (0.0-12.0); Protein:Creat Ratio 153 mg/g CRE (0-200)
[2024-05-30 22:07] LABS: Chlamydia By Nucleic Acid AMP Negative (Negative); Gonococcus By Nucleic Acid AMP Negative (Negative)
== END | disposition home or self-care (01) ==
LOC: BWCLAB 09:28
PROVIDERS: PCP Family Medicine; Visit Provider Obstetrics & Gynecology
DX: O99.210 Obesity complicating pregnancy, unspecified trimester (principal); O16.9 Unspecified maternal hypertension, unspecified trimester; Z3A.00 Weeks of gestation of pregnancy not specified
CPT/HCPCS: 36415; 80053; 82570; 83036; 84156; 85025; 86703; 86762; 86780; 86803; 86850; 86900; 86901; 87086; 87088; 87340; 87491; 87591

== ENCOUNTER 2024-06-16 22:25 | Emergency (ER) | payer MEDICAID, SELFPAY ==
[2024-06-16 22:26] VITALS: BP 137/92; PULSE 105; RESP 18; TEMP 36.8; O2SAT 99; BMI 40.8
[2024-06-16 23:41] LABS: Mucous, Urine 0 SEEN /hpf (<or=2+)
[2024-06-16 23:43] LABS: Color, Urine Yellow (Yellow); Glucose, Dipstick Normal (Normal); Ketone-Dipstick 5 mg/dl (Negative); Leukocyte Esterase-Dipstick 25 /ul (Negative); Nitrite-Dipstick Negative (Negative); Occult Blood-Urine 250 /ul (Negative); Protein-Dipstick 30 mg/dl (Negative); Specific Gravity, Urine 1.025 (1.002-1.030); Urine Bilirubin Dipstick Negative (Negative); Urine Clarity Clear (Clear); Urine Urobilinogen 4 mg/dl (Normal)
[2024-06-16 23:59] LABS: Bacteria RARE /hpf (None Seen); Red Blood Cells-Urine 25-50 SEEN /hpf (0-5); Squamous Epithelial Cells - UA 0-5 SEEN /hpf (5-10); White Blood Cells 0-5 SEEN /hpf (0-5)
--- NOTE | 2024-06-17 00:19 | ED.VIS.FEGU ---
HPI HPI - Female History of Present Illness Chief Complaint: Vag Bld, Preg Informant: patient Narrative Narrative: Patient is a A9 all miscarriages before 7 weeks, states she is just over 12 weeks , and started having bleeding with clots and nonlateralizing pelvic cramping tonight she is concerned. No injuries, no recent illness except for a urinary infection, with mostly mid low back pain that started before the cramping and bleeding tonight, she went to an urgent care in [place] and was prescribed Cipro for that which she is taking still. [facility] Medical History Depression Irritable bowel syndrome with diarrhea Other obesity IUD (intrauterine device) in place Wears glasses Anxiety Kidney stones Anemia Back pain Injury of back Syncope History of GI bleed Leg cramps History of Holter monitoring History of echocardiogram Hypertension Blood per rectum Palpitations Nausea Calculus of kidney SOB (shortness of breath) Right flank pain Elevated platelet count Abdominal pain macrosomia depression Gestational HTN Home Medications ?Medication ?Instructions ?Recorded ?Last Taken ?Type calcium citrate 500 mg PO TID 10/19/23 Unknown History [id number] 45 mg-folic 1 cap PO DAILY RNY gastric bypass 11/10/23 Unknown History acid 800 mcg-vit K 120 mcg capsule (Bariatric Multivitamins) PNV 153-FA 400 mcg-om3 35 mg-dha tab PO DAILY 05/16/24 Unknown History 25 mg-epa 5 mg-fish oil chew tablet cholecalciferol (vitamin D3) 125 125 mcg PO QDAY 05/16/24 Unknown History mcg (5,000 unit) capsule cholecalciferol (vitamin D3) 25 25 mcg PO QDAY 05/16/24 Unknown History mcg (1,000 unit) capsule ferrous sulfate 325 mg (65 mg 325 mg PO QDAY 05/16/24 Unknown History iron) tablet metoprolol tartrate 25 mg tablet 25 mg PO BID #30 tabs 05/17/24 Unknown Rx Allergy/AdvReac Type Severity Reaction Status Date / Time NSAIDS (Non-Steroidal AdvReac PT UNSURE Verified 06/16/24 22:29 Anti-Inflamma OF REACTION Family History Mother Skin cancer Grandmother Cancer Maternal- Non-Hodgkins lymphoma Grandfather Heart disease Maternal Diabetes Maternal- Type 2 Surgical History H/O gastric bypass Hx of hernia repair History of cholecystectomy History of surgery Social History adopted: No household members: children housing: house number of children: 4 current occupational status: employed current occupation: [employer] current occupational exposures/hazards: No pets and animals: Yes pets and animals: dog(s) and iguana(s) history of recent travel: No sexually active: Yes Smoking Status: Never smoker alcohol intake: never substance use type: does not use well-balanced diet: daily or most days caffeine: Yes Type: tea Number of servings: 1 eating out: 1-3 times/week during the past year weight has: decreased > 10 lbs what type of physical activity do you participate in: walking frequency: 3-4 times per week duration: 30-45 minutes/day serge/alevism: Protestant seatbelt use: always do you feel safe at home: Yes 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 history: 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[employer] ED Constitutional Constitutional ED: Denies chills or fever(s) Eyes Eyes: Denies change in vision or diplopia ENT ENT ED: Denies rhinorrhea or sore throat Cardiovascular Cardiovascular: Denies chest pain, lightheadedness, palpitations or syncope Respiratory/Chest Respiratory/Chest: Denies cough or dyspnea Gastrointestinal Gastrointestinal: Reports abdominal pain; Denies diarrhea, nausea or vomiting Genitourinary Genitourinary ED: Reports as per HPI and vaginal bleeding; Denies dysuria or hematuria Musculoskeletal Musculoskeletal: Reports back pain; Denies neck pain Integumentary Denies abscess or rash Neurologic Neurologic: Denies headache(s), paresthesias or weakness Psychiatric Psychiatric: Denies anxiety or suicidal thoughts EXAM Physical Exam Const Vital Signs: 06/16/24 22:26 Temperature 98.3 F Temperature Source Oral Pulse Rate 105 H Respiratory Rate 18 Blood Pressure 137/92 H Blood Pressure Mean 107 Pulse Ox 99 Oxygen Delivery Method Room Air Positive well nourished, well developed and obese General Appearance ED: well developed and NAD Nutritional Appearance: obese HEENT Reports moist mucous membranes normocephalic and atraumatic Eyes PERRL and EOMs intact bilaterally Neck full ROM and supple Resp normal respiratory effort and clear to auscultation bilaterally Cardio regular rate, regular rhythm and no murmurs Rate: Negative for tachycardic GI non-tender and non-distended Auscultation: normoactive bowel sounds Palpation: soft Speculum Exam - Vagina: vaginal bleeding Back/Spine no CVA tenderness General Back: other FROM Extremity normal to inspection General Extremety ED: Negative for edema, pulses abnormal or tenderness General Extremity: Negative for edema or pulses abnormal Neuro oriented x3, CN's II-XII intact bilaterally and no sensory deficits noted Sensorium / Orientation: awake and alert Motor Exam: strength 5/5 throughout Skin no rashes or lesions noted and no wounds MDM MDM MDM Narrative Medical decision making narrative: I did bedside ultrasound. There is a single live intrauterine with heart tones at 166 and good movement, crown-rump length consistent with a 12-week exactly. Patient reassured. This essentially rules out ectopic and she does not have symptoms of a heterotopic . She is Rh+ no RhoGAM indicated. She was amenable to urinating for us and checking a urinalysis to see if her urine infection is improving since she still has low back pain and she was put on Cipro which is not recommended first-line antibiotic. Her urine does look like it is probably improved although I do not have access to her prior urinalysis or a culture. 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 We discussed reasons to return including severe bleeding. She is not having no symptoms of anemia at this time. History & Record Review Additional record(s) reviewed:: Prior labs (Blood type B+) Lab Data Labs: Laboratory Results - last 24 hr 06/16/24 23:35 Urine Color Yellow Urine Clarity Clear Urine pH 6.0 Ur Specific [place] 1.025 Urine Protein 30 H Urine Glucose (UA) Normal Urine Ketones 5 H Urine Occult Blood 250 H Urine Nitrite Negative Urine Bilirubin Negative Urine Urobilinogen 4 H Ur Leukocyte Esterase 25 H Urine RBC 25-50 SEEN Urine WBC 0-5 SEEN Ur Squamous Epith Cells 0-5 SEEN Urine Bacteria RARE Urine Mucus 0 SEEN Discharge Plan Triage Chief Complaint: Vag Bld, Preg ED Provider: Jay Liu Dx/Rx/DC Orders Clinical Impression: , threatened Instructions: Miscarriage Threatened Prescriptions: No Action calcium citrate 250 mg calcium tablet 500 mg PO TID Bariatric Multivitamins 45 mg iron- 800 mcg-120 mcg capsule 1 cap PO DAILY PNV no.[id number] 400 mcg-35 mg- 25 mg-5 mg tablet,chewable PO DAILY ferrous sulfate 325 mg (65 mg iron) tablet 325 mg PO QDAY cholecalciferol (vitamin D3) 25 mcg (1,000 unit) capsule 25 mcg PO QDAY cholecalciferol (vitamin D3) 125 mcg (5,000 unit) capsule 125 mcg PO QDAY metoprolol tartrate 25 mg tablet 25 mg PO BID Qty: 30 3RF Primary Care Provider: Starla Lane Referrals: Peggy Flynn DO [Med Staff - Active Staff] - As soon as possible Starla Lane PA-C [Primary Care Provider] - Print Language: Qatari Disposition Disposition: Home, Self Care
[2024-06-17 00:24] VITALS: BP 137/92; PULSE 105; RESP 18; TEMP 36.8; O2SAT 99
[2024-06-17 00:26] VITALS: PULSE 92; RESP 16
== END 2024-06-17 00:30 | disposition home or self-care (01) ==
PROVIDERS: Emergency Provider Emergency Medicine; PCP Family Medicine; Visit Provider Emergency Medicine
DX: O20.0 Threatened abortion (principal); O16.1 Unspecified maternal hypertension, first trimester; O99.211 Obesity complicating pregnancy, first trimester; O23.41 Unspecified infection of urinary tract in pregnancy, first trimester; Z3A.12 12 weeks gestation of pregnancy; Z98.84 Bariatric surgery status; Z79.899 Other long term (current) drug therapy
CPT/HCPCS: 81001; 99283; A4216

== ENCOUNTER 2024-06-27 23:00 | Emergency (ER) | payer MEDICAID, SELFPAY ==
[2024-06-27 23:01] VITALS: BP 137/84; PULSE 101; RESP 16; TEMP 36.1; O2SAT 99; BMI 41.1
[2024-06-27] MEDS: 0.9% Normal Saline (1000mL) 1,000 ML 999 ML IV (23:26)
[2024-06-28 00:15] LABS: Anion Gap 8 (5-15); BUN 7 mg/dL (4-19); BUN/Creat Ratio 12.2 RATIO (10-20); Calcium,Total 8.3 mg/dL (7.6-11.0); Chloride 105 mmol/L (98-108); Creatinine, Serum 0.58 mg/dL (0.70-1.20); EST Glomerular Filtration Rate 126 (>60); Glucose 102 mg/dL (70-99); Potassium 3.4 mmol/L (3.3-5.1); Sodium Level 134 mmol/L (133-145)
[2024-06-28 00:18] LABS: International Normalized Ratio 1.1
[2024-06-28 00:19] LABS: Partial Thromboplast Time 30.9 Seconds (24.1-36.2)
[2024-06-28 00:24] LABS: Absolute Lymphocyte Count 0.63 X10^3/uL (0.83-4.51); Absolute Neutrophil Count 4.6 X10^3/uL (2.0-7.7); Basophil# 0.01 X10^3/uL; Basophil% 0.2 % (0-1); Eosinophil# 0.01 X10^3/uL; Eosinophils% 0.2 % (0-5); Hematocrit 30.2 % (37-47); Hemoglobin 9.9 g/dL (12.0-15.0); Lymphocyte # 0.63 X10^3/ul (0.83-4.51); Lymphocyte % 11.3 % (19-41); Mean Corp Hgb Conc 32.8 g/dL (32-36); Mean Corpuscular Hgb 25.1 pg (27.0-32.0); Mean Corpuscular Volume 76.6 fL (81-99); Mean Platelet Vol. 10.5 fl (6.2-12.0); Monocyte# 0.28 X10^3/uL; NRBC Flagged by Analyzer 0 % (0-5); Neutrophil # 4.63 X10^3/uL (2.7-7.7); Neutrophil % 83.1 % (47-70); Platelet Count 203 K/mm3 (150-450); RBC Distribution Width CV 15.9 % (11.6-14.6); RBC Distribution Width SD 43.6 fl (35.1-43.9); Red Blood Count 3.94 M/mm3 (4.2-5.4); White Blood Count 5.6 K/mm3 (4.4-11.0)
[2024-06-28 00:41] LABS: hCG Titer Quant., Serum 16385 mIU/mL (<9 non-preg)
[2024-06-28 01:01] VITALS: BP 118/70; PULSE 68; RESP 16; TEMP 36.7; O2SAT 100
--- NOTE | 2024-06-28 01:15 | ED.VIS.FEGU ---
HPI HPI - Female History of Present Illness Chief Complaint: Vag Bld, Preg Informant: patient Narrative Narrative: Patient is a 28-year-old female who reports that this is her 14th but also that she has had multiple spontaneous miscarriages. She states she is approximately 15 weeks . She reports she has had previous ultrasounds documenting an intrauterine with normal heartbeat. She reports she was seen recently secondary to vaginal bleeding and was found to have a subchorionic hemorrhage. She states that today/this evening roughly 1 hour prior to arrival she had increased bleeding and passed a large clot. With concern that this was a potential miscarriage she presents for evaluation [facility] Medical History Depression Irritable bowel syndrome with diarrhea Other obesity IUD (intrauterine device) in place Wears glasses Anxiety Kidney stones Anemia Back pain Injury of back Syncope History of GI bleed Leg cramps History of Holter monitoring History of echocardiogram Hypertension Blood per rectum Palpitations Nausea Calculus of kidney SOB (shortness of breath) Right flank pain Elevated platelet count Abdominal pain macrosomia depression Gestational HTN Home Medications ?Medication ?Instructions ?Recorded ?Last Taken ?Type [id number]-[id number]-teog 45 mg-folic 1 cap PO DAILY RNY gastric bypass 11/10/23 Unknown History acid 800 mcg-vit K 120 mcg capsule (Bariatric Multivitamins) PNV 153-FA 400 mcg-om3 35 mg-dha tab PO DAILY 05/16/24 Unknown History 25 mg-epa 5 mg-fish oil chew tablet cholecalciferol (vitamin D3) 125 125 mcg PO QDAY 05/16/24 Unknown History mcg (5,000 unit) capsule cholecalciferol (vitamin D3) 25 25 mcg PO QDAY 05/16/24 Unknown History mcg (1,000 unit) capsule ferrous sulfate 325 mg (65 mg 325 mg PO QDAY 05/16/24 Unknown History iron) tablet Allergy/AdvReac Type Severity Reaction Status Date / Time NSAIDS (Non-Steroidal AdvReac PT UNSURE Verified 06/27/24 23:01 Anti-Inflamma OF REACTION Family History Mother Skin cancer Grandmother Cancer Maternal- Non-Hodgkins lymphoma Grandfather Heart disease Maternal Diabetes Maternal- Type 2 Surgical History H/O gastric bypass Hx of hernia repair History of cholecystectomy History of surgery Social History adopted: No household members: children housing: house number of children: 4 current occupational status: employed current occupation: [employer] current occupational exposures/hazards: No pets and animals: Yes pets and animals: dog(s) and iguana(s) history of recent travel: No sexually active: Yes Smoking Status: Never smoker alcohol intake: never substance use type: does not use well-balanced diet: daily or most days caffeine: Yes Type: tea Number of servings: 1 eating out: 1-3 times/week during the past year weight has: decreased > 10 lbs what type of physical activity do you participate in: walking frequency: 3-4 times per week duration: 30-45 minutes/day serge/latter-day: Oriental Orthodox seatbelt use: always do you feel safe at home: Yes 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 history: Engaged- [employer] at [employer] [facility] ED Constitutional Constitutional ED: Denies chills or fever(s) Eyes Eyes: Denies blurry vision or change in vision ENT ENT ED: Denies sore throat Cardiovascular Cardiovascular: Denies chest pain Respiratory/Chest Respiratory/Chest: Denies cough or dyspnea Gastrointestinal Gastrointestinal: Denies abdominal pain, diarrhea, nausea or vomiting Genitourinary Genitourinary ED: Reports other Details: Positive vaginal bleeding ; Denies dysuria or urinary frequency Musculoskeletal Musculoskeletal: Denies myalgias Integumentary Denies rash Neurologic Neurologic: Denies headache(s) Psychiatric Psychiatric: Reports anxiety Hematologic/Lymphatic Hematologic/Lymphatic: Denies easy bleeding or easy bruising EXAM Physical Exam Const Vital Signs: 06/27/24 23:01 06/28/24 01:01 Temperature 97 F L 98.1 F Temperature Source Oral Pulse Rate 101 H 68 Respiratory Rate 16 16 Blood Pressure 137/84 H 118/70 Blood Pressure Mean 101 86 Pulse Ox 99 100 Positive well nourished, well developed and obese General Appearance ED: well developed; Negative for pallor Nutritional Appearance: obese HEENT HEENT Narrative: Normocephalic atraumatic Eyes PERRL and EOMs intact bilaterally General Eye ED: Negative for pale conjunctiva or scleral icterus Neck supple Neck Narrative: No nuchal rigidity or meningeal signs Resp normal respiratory effort and clear to auscultation bilaterally Cardio regular rate and regular rhythm Rate: other Other Details: Heart is regular rate and rhythm without murmurs rubs or gallops Radial and carotid pulses are equal and symmetric GI non-tender and non-distended GI Narrative: Abdomen is gravid with fundus consistent with reported gestational age. No pain with palpation. No voluntary guarding or rigidity. No pulsatile mass or fluid wave. Auscultation: normoactive bowel sounds Palpation: soft Back/Spine no CVA tenderness Extremity normal to inspection and full ROM Extremity Narrative: Negative Homans' sign bilaterally Neuro oriented x3, CN's II-XII intact bilaterally and no sensory deficits noted Sensorium / Orientation: alert Motor Exam: strength 5/5 throughout Psych mental status grossly normal Skin no rashes or lesions noted Skin Narrative: Capillary refill is less than 3 seconds General Skin Exam: Negative for jaundice or pallor MDM MDM MDM Narrative Medical decision making narrative: Patient arrived to the ER slightly hypertensive but otherwise with stable vitals. She has a known IUP as well as a known subchorionic hemorrhage. With her report of a large clot and worsening bleeding there is concern for acute blood loss anemia or thrombocytopenia or elevation to her bleeding times. There is also concern potential spontaneous miscarriage. Secondary to his basic labs were obtained. H&H is technically low at 9.9 but chart review reveals that this is near patient's baseline and well above the value of 7 needed for a blood transfusion. Otherwise her platelets and bleeding times are normal and there is no signs of acute kidney injury. A bedside ultrasound was performed by myself which does show a single IUP with a heart rate of 165 bpm. The patient's hCG value is roughly the same as April of this year which was concerning for potential miscarriage with her reported bleeding but as bedside ultrasound shows a normal heart rate with movement this now qualifies as threatened miscarriage. At this time she is hemodynamically stable she is not requiring a blood transfusion there are no signs of infection and therefore she can follow-up as an outpatient for continued care History & Record Review Discussion w/independent historian: Patient Lab Data Attestation: I reviewed the patient's lab results. Labs: Laboratory Results - last 24 hr 06/27/24 23:23 WBC 5.6 RBC 3.94 L Hgb 9.9 L Hct 30.2 L MCV 76.6 L MCH 25.1 L MCHC 32.8 RDW Std Deviation 43.6 RDW Coeff of Nathaniel 15.9 H Plt Count 203 MPV 10.5 Immature Gran % (Auto) 0.200 Neut % (Auto) 83.1 H Lymph % (Auto) 11.3 L [place] % (Auto) 5.0 Eos % (Auto) 0.2 Baso % (Auto) 0.2 Absolute Neuts (auto) 4.6 Absolute Lymphs (auto) 0.63 L Nucleated RBC % 0 PT 14.0 INR 1.1 APTT 30.9 Sodium 134 Potassium 3.4 Chloride 105 Carbon Dioxide 22.0 Anion Gap 8 BUN 7 Creatinine 0.58 L Estim Creat Clear Calc 186.50 Est GFR (MDRD) Non-Af 126 BUN/Creatinine Ratio 12.2 Glucose 102 H Calcium 8.3 HCG, Quant 79913 H Discharge Plan Triage Chief Complaint: Vag Bld, Preg ED Provider: Pancho Gagnon Dx/Rx/DC Orders Clinical Impression: Vaginal bleeding during , Hypertension, Depression, Threatened miscarriage, Anemia Instructions: Vaginal Bleeding During Prescriptions: No Action Bariatric Multivitamins 45 mg iron- 800 mcg-120 mcg capsule 1 cap PO DAILY PNV no.[id number] 400 mcg-35 mg- 25 mg-5 mg tablet,chewable PO DAILY ferrous sulfate 325 mg (65 mg iron) tablet 325 mg PO QDAY cholecalciferol (vitamin D3) 25 mcg (1,000 unit) capsule 25 mcg PO QDAY cholecalciferol (vitamin D3) 125 mcg (5,000 unit) capsule 125 mcg PO QDAY Primary Care Provider: Starla Lane Referrals: Starla Lane PA-C [Primary Care Provider] - Activity Restrictions/Additional Instructions: Please follow-up with your [facility] for repeat evaluation and return to the ER should you have any further concerns Print Language: Yoruba Disposition Disposition: Home, Self Care Discharge Date/Time: 06/28/24 01:27
== END 2024-06-28 01:27 | disposition home or self-care (01) ==
PROVIDERS: Emergency Provider Emergency Medicine; PCP Family Medicine; Visit Provider Emergency Medicine
DX: O20.0 Threatened abortion (principal); O99.012 Anemia complicating pregnancy, second trimester; O99.342 Other mental disorders complicating pregnancy, second trimester; F41.9 Anxiety disorder, unspecified; F32.A Depression, unspecified; O16.2 Unspecified maternal hypertension, second trimester; O99.212 Obesity complicating pregnancy, second trimester; Z3A.15 15 weeks gestation of pregnancy; Z87.59 Personal history of other complications of pregnancy, childbirth and the puerperium; Z98.84 Bariatric surgery status
CPT/HCPCS: 80048; 84702; 85025; 85610; 85730; 96360; 99282; A4216

== ENCOUNTER 2024-06-28 09:05 | Outpatient (CLI) | payer MEDICAID, SELFPAY ==
[2024-06-28 09:22] VITALS: BP 111/76; PULSE 86; PULSE 94; O2SAT 98
[2024-06-28 09:33] VITALS: BMI 40.8
--- NOTE | 2024-06-28 10:06 | US_ITS ---
EXAM: TRANSVAGINAL W/PREG US, 06/28/2024. Reportedly, 14 weeks 0 days with ALNIE 12/27/2024 by previously established dates. CLINICAL HISTORY: BLEEDING AT 14 WEEKS COMPARISON: 05/25/2024 TECHNIQUE: A limited transabdominal and transvaginal obstetrical ultrasound was performed with attention to the uterus and associated gestation. FINDINGS: Gravid uterus with a single fetus. presentation: Breech. heart rate: Present, 167 bpm. Placenta: Anterior without visualized or definite previa. Cervix: Closed, variably measured at 2.6-3.0 cm on transvaginal images cm. Other: Trace pelvic free fluid. US/Transvaginal w/Preg US IMPRESSION: 1. Single living intrauterine gestation in breech presentation. 2. Borderline evidence of cervical incompetence. Recommend clinical follow-up including routine complete 20 week anatomic survey. 3. Trace nonspecific pelvic free fluid. 4. Additional description as above. Reading Location: [id number]
[2024-06-28 10:51] LABS: Absolute Neutrophil Count 3.8 X10^3/uL (2.0-7.7); Basophil# 0.01 X10^3/uL; Basophil% 0.2 % (0-1); Eosinophil# 0.02 X10^3/uL; Eosinophils% 0.4 % (0-5); Hematocrit 28.3 % (37-47); Hemoglobin 9.3 g/dL (12.0-15.0); Lymphocyte % 19.2 % (19-41); Mean Corp Hgb Conc 32.9 g/dL (32-36); Mean Corpuscular Hgb 24.7 pg (27.0-32.0); Mean Corpuscular Volume 75.3 fL (81-99); Mean Platelet Vol. 10.6 fl (6.2-12.0); Monocyte# 0.32 X10^3/uL; Monocyte% 6.2 % (0-10); NRBC Flagged by Analyzer 0 % (0-5); Neutrophil # 3.83 X10^3/uL (2.7-7.7); Neutrophil % 73.6 % (47-70); Platelet Count 212 K/mm3 (150-450); RBC Distribution Width CV 16.1 % (11.6-14.6); RBC Distribution Width SD 44.6 fl (35.1-43.9); Red Blood Count 3.76 M/mm3 (4.2-5.4); White Blood Count 5.2 K/mm3 (4.4-11.0)
[2024-06-28] MEDS: 0.9% Saline Lock 10 ML Syringe IV (13:30)
--- NOTE | 2024-06-29 01:41 | OB.TRI.PN_ITS ---
Progress Notes Date of Service: 06/28/24 Progress Note: patient was seen for heavy vaginal bleeidng- it was decreaisng when she presented but she still passed a clot here. anemia noted. vital signs stable. US shows shortened cervical length but closed no previa and viable IUP seen. discussed RBA and offered vaginal progesterone and plan FU with [facility] for consult. reivewe dbleeding and miscarriage precautions. 14 weeks threatened ab Laboratory Studies: Laboratory Tests 06/28/24 Range/Units 10:25 WBC 5.2 (4.4-11.0) K/mm3 RBC 3.76 L (4.2-5.4) M/mm3 Hgb 9.3 L (12.0-15.0) g/dL Hct 28.3 L (37-47) % MCV 75.3 L (81-99) fL MCH 24.7 L (27.0-32.0) pg MCHC 32.9 (32-36) g/dL RDW Std Deviation 44.6 H (35.1-43.9) fl RDW Coeff of Nathaniel 16.1 H (11.6-14.6) % Plt Count 212 (150-450) K/mm3 MPV 10.6 (6.2-12.0) fl Immature Gran % (Auto) 0.400 (0.0-0.9) % Neut % (Auto) 73.6 H (47-70) % Lymph % (Auto) 19.2 (19-41) % [place] % (Auto) 6.2 (0-10) % Eos % (Auto) 0.4 (0-5) % Baso % (Auto) 0.2 (0-1) % Absolute Neuts (auto) 3.8 (2.0-7.7) X10^3/uL Absolute Lymphs (auto) 1.00 (0.83-4.51) X10^3/uL Nucleated RBC % 0 (0-5) % Blood Type B POSITIVE Antibody Screen NEGATIVE
== END 2024-06-28 13:33 | disposition home or self-care (01) ==
LOC: WPOUT 09:10 → WP 09:11
PROVIDERS: PCP Family Medicine; Referring Provider Obstetrics & Gynecology; Visit Provider Obstetrics & Gynecology
DX: O20.0 Threatened abortion (principal); O99.012 Anemia complicating pregnancy, second trimester; Z3A.14 14 weeks gestation of pregnancy
CPT/HCPCS: 36415; 76817; 85025; 85027; 86850; 86900; 86901; 99221; A4216; G0378

== ENCOUNTER → 2024-07-04 | Outpatient (CLI) | payer MEDICAID, SELFPAY ==
[2024-07-04 11:56] LABS: Absolute Lymphocyte Count 1.79 X10^3/uL (0.83-4.51); Absolute Neutrophil Count 4.4 X10^3/uL (2.0-7.7); Basophil# 0.02 X10^3/uL; Basophil% 0.3 % (0-1); Eosinophil# 0.05 X10^3/uL; Eosinophils% 0.7 % (0-5); Hematocrit 28.3 % (37-47); Hemoglobin 8.8 g/dL (12.0-15.0); Lymphocyte # 1.79 X10^3/ul (0.83-4.51); Lymphocyte % 26.7 % (19-41); Mean Corp Hgb Conc 31.1 g/dL (32-36); Mean Corpuscular Hgb 24.5 pg (27.0-32.0); Mean Corpuscular Volume 78.8 fL (81-99); Mean Platelet Vol. 9.9 fl (6.2-12.0); Monocyte# 0.44 X10^3/uL; Monocyte% 6.6 % (0-10); NRBC Flagged by Analyzer 0 % (0-5); Neutrophil # 4.36 X10^3/uL (2.7-7.7); Platelet Count 360 K/mm3 (150-450); RBC Distribution Width CV 15.7 % (11.6-14.6); RBC Distribution Width SD 44.7 fl (35.1-43.9); Red Blood Count 3.59 M/mm3 (4.2-5.4); White Blood Count 6.7 K/mm3 (4.4-11.0)
== END | disposition home or self-care (01) ==
PROVIDERS: PCP Family Medicine; Referring Provider Obstetrics & Gynecology; Visit Provider Obstetrics & Gynecology
DX: O03.9 Complete or unspecified spontaneous abortion without complication (principal); R51.9 Headache, unspecified
CPT/HCPCS: 36415; 85025

== ENCOUNTER → 2024-07-29 | Outpatient (CLI) | payer MEDICAID, SELFPAY ==
--- OUTSIDE RECORDS SUMMARY | 2024-07-29 09:30 | XMS RPT_ITS | CCD ---
Author Organization 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 Silviano Daley Attending Provider [phone] Clatonia PA, PA-C Xenia Primary Care Provider Clatonia PA, PA-C Xenia Referring Provider [phone] Ade MCBRIDE NP-Manoj Bose Attending Provider [phone] Dr. Silviano Daley Attending Provider [phone] Agustin MCBRIDE, SPONGE CLIPPER-Manoj Ojeda Attending Provider [phone] FriendDr. Yang Attending Provider [phone] FriendDr. Yang Other Provider [phone] Clatonia PA, PA-C Xenia Primary Care Provider Clatonia PA, PA-C Xenia Referring Provider Dr. Peggy Flynn Attending Provider [phone] Clatonia PA, PA-C Xenia Primary Care Provider Clatonia PA, PA-C Xenia Referring Provider Dr. Silviano Daley Attending Provider Clatonia PA, PA-C Xenia Primary Care Provider [phone] Clatonia PA, PA-C Xenia Referring Provider Agustin MCBRIDE, SPONGE CLIPPER-C Stephany Ojeda Attending Provider [phone] Dr. Silviano Daley Attending Provider [facility] Primary Care Provider Silviano Daley Unavailable Shannan WALLS, Memo Lux Unavailable Clatonia PA, PA-C Xenia Primary Care Provider Clatonia PA, PA-C Xenia Referring Provider Fernando SPONGE CLIPPER, SPONGE CLIPPER-C Beverley Attending Provider Desean DARDEN, Zully Unavailable Unavailable Eliazar Abreu MD Unavailable [facility], [place] Primary Care Provider Dr. Silviano Daley MD Attending Provider Dr. Silviano Daley MD Referring Provider Laurence Lobo Attending Provider [phone] Laurence Lobo Referring Provider [facility], [place] Referring Provider [phone] Dr. Peggy Flynn DO Attending Provider Dr. Peggy Flynn DO Referring Provider Dr. Fernando Al DO Attending Provider Dr. Fernando Al DO Emergency Provider [phone] Ade MCBRIDE-Lidya Aranda Attending Provider Ade SPONGE CLIPPER-CLidya Referring Provider BRANDY RAY Attending Unavailable DEANNA, JIANFANG Admitting Unavailable [facility] Primary Care Unavailable CHELLY RAY Attending Unavailable RONNI, ZEENAT Admitting Unavailable [facility] Primary Care Unavailable ELIAZAR ABREU Consulting Unavailable SETH LEAL Attending Unavailable SETH LEAL Admitting Unavailable [facility] Primary Care Unavailable [facility] Primary Care Unavailable JESSICASTENPREMA, CARMEN Attending Unavailable [facility] Primary Care Unavailable GERSTENMAIER, CARMEN Referring Unavailable GERSTENMAIER, CARMEN Attending Unavailable DONA ANA, CATHLAMET Primary Care Unavailable ZUPKE, MILEY Referring Unavailable ZUPKE, MILEY Attending Unavailable DONA ANA, CATHLAMET Primary Care Unavailable DONA ANA, XENIA Referring Unavailable ZUPKE, MILEY Attending Unavailable DONA ANA, XENIA Primary Care Unavailable DONA ANA, XENIA Referring Unavailable ZOGRAFAKIS, MEMO Attending Unavailable DONA ANA, CATHLAMET Primary Care Unavailable DONA ANA, XENIA Referring Unavailable ZUPKE, MILEY Attending Unavailable DONA ANA, CATHLAMET Primary Care Unavailable ZOGRAFAKIS, MEMO Attending Unavailable DONA ANA, CATHLAMET Primary Care Unavailable ZOGRAFAKIS, MEMO Referring Unavailable ZOGRAFAKIS, MEMO Attending Unavailable DONA ANA, CATHLAMET Primary Care Unavailable ZOGRAFAKIS, MEMO Referring Unavailable ZOGRAFAKIS, MEMO Attending Unavailable DONA ANA, CATHLAMET Primary Care Unavailable DONA ANA, XENIA Referring Unavailable ZUPKE, MILEY Attending Unavailable DONA ANA, CATHLAMET Primary Care Unavailable RAVI ABREU Attending Unavailable DONA ANA, CATHLAMET Primary Care Unavailable CHELY GARCIA Attending Unavailable DONA ANA, CATHLAMET Primary Care Unavailable RAVI ABREU Referring Unavailable STANISLAV, ABDOUL Attending Unavailable Alexa WALLS, Dr. Thompson Emergency Provider [facility] [place] Primary Care Provider Boogie WALLS, Dr. Banegas Attending Provider [phone] Dr. Silviano Daley MD Referring Provider [phone] Dr. Jay Liu MD Attending Provider Christy Whitten CNM Attending Provider Dr. Pancho Gagnon DO Emergency Provider [phone] CANDE CATALAN Primary Care Unavailable CANDE CATALAN Attending Unavailable CATALAN, CANDE Admitting Unavailable DONA ANA, XENIA Consulting Unavailable PROVIDER, UNKNOWN Consulting Unavailable CATALAN, CANDE Attending Unavailable CATALAN, CANDE Admitting Unavailable HILLS, XENIA Consulting Unavailable CATALAN, CANDE Primary Care Unavailable PROVIDER, UNKNOWN Consulting Unavailable DONA ANA, XENIA Consulting Unavailable RANDOLPH, ENRICO Primary Care Unavailable RANDOLPH, ENRICO Admitting Unavailable RANDOLPH, ENRICO Attending Unavailable PROVIDER, UNKNOWN Consulting Unavailable DONA ANA, XENIA Consulting Unavailable DONA ANA, XENIA Admitting Unavailable DONA ANA, XENIA Attending Unavailable HILLS, XENIA Primary Care Unavailable PROVIDER, UNKNOWN Consulting Unavailable HILLS, XENIA Consulting Unavailable UNGERER, CARROLL SPONGE CLIPPER Primary Care Unavailable UNGERER, CARROLL SPONGE CLIPPER Admitting Unavailable UNGERER, CARROLL SPONGE CLIPPER Attending Unavailable PROVIDER, UNKNOWN Consulting Unavailable HILLS, XENIA Consulting Unavailable HILLS, XENIA Attending Unavailable HILLS, XENIA Admitting Unavailable HILLS, XENIA Primary Care Unavailable PROVIDER, UNKNOWN Consulting Unavailable HILLS, XENIA Consulting Unavailable PEGGY JONES DO Attending Unavaila ble VANDEVELDE, PEGGY BIRCH Admitting Unavaila ble VANDEVELDE, PEGGY BIRCH Primary Care Unavaila ble PROVIDER, UNKNOWN Consulting Unavailable HILLS, XENIA Consulting Unavailable HILLS, XENIA Admitting Unavailable HILLS, XENIA Attending Unavailable HILLS, XENIA Primary Care Unavailable PROVIDER, UNKNOWN Consulting Unavailable HILLS, XENIA Consulting Unavailable HILLS, XENIA Referring Unavailable NATHEN, JASWINDER Dougherty Attending Unavailable NATHEN, JASWINDER Dougherty Primary Care Unavailable NATHEN, JASWINDER Dougherty Admitting Unavailable PROVIDER, UNKNOWN Consulting Unavailable HILLS, XENIA Consulting Unavailable HILLS, XENIA Referring Unavailable LEMDEBRA, ANUP Guaman Primary Care Unavailable ANUP LARIOS Attending Unavailable LEMANUP RICHARDSON Admitting Unavailable PROVIDER, UNKNOWN Consulting Unavailable HILLS, XENIA Consulting Unavailable LEMDEBRA, ANUP Guaman Admitting Unavailable LEMDEBRA, ANUP Guaman Primary Care Unavailable LEMANUP RICHARDSON Attending Unavailable HILLS, XENIA Referring Unavailable PROVIDER, UNKNOWN Consulting Unavailable HILLS, XENIA Consulting Unavailable HILLS, XENIA Referring Unavailable NATHEN, JASWINDER Dougherty Admitting Unavailable NATHEN, JASWINDER Dougherty Attending Unavailable NATHEN, JASWINDER Dougherty Primary Care Unavailable PROVIDER, UNKNOWN Consulting Unavailable HILLS, XENIA Consulting Unavailable HILLS, XENIA Referring Unavailable LEMANUP RICHARDSON Admitting Unavailable LEMANUP RICHARDSON Primary Care Unavailable LEMANUP RICHARDSON Attending Unavailable PROVIDER, UNKNOWN Consulting Unavailable CANDE CATALAN Primary Care Unavailable CANDE CATALAN Attending Unavailable HOSSEIN, CANDE Admitting Unavailable HILLS, XENIA Consulting Unavailable PROVIDER, UNKNOWN Consulting Unavailable HILLS, XENIA Consulting Unavailable CANDE CATALAN Attending Unavailable CANDE CATALAN Admitting Unavailable CANDE CATALAN Primary Care Unavailable PROVIDER, UNKNOWN Consulting Unavailable Clatonia RUMA, Xenia Primary Care Provider Ester Sanchez DO, Dr. Woods Attending Provider Ester Sanchez DO, Dr. Woods Referring Provider Clatonia PA-C, Xenia Referring Provider Laurence Lobo Attending Provider Laurence Lobo Referring Provider Boogie WALLS, Dr. Banegas Attending Provider Boogie WALLS, Dr. Banegas Referring Provider Boogie WALLS, Dr. Banegas Other Provider [phone] Dr. Pancho Gagnon DO Attending Provider Clatonia PA-C, Xenia D Primary Care Provider VIDYA OTT Attending Unavailable [facility] Primary Care Unavailable SILVIANO DALEY Referring Unavailabl e OTTVIDYA Referring Unavailable [facility] Primary Care Unavailable VIDYA OTT Attending Unavailable Silviano Daley Attending Unavailable Clatonia PA, Xenia Primary Care Unavailable Clatonia PA, Xenia Referring Unavailable Laurence Mccrary Referring Unavailable Laurence Mccrary Consulting Unavailable Phyllis Pichardo Attending Unavailable Clatonia PA, Xenia Primary Care Unavailable Ruth Rodriguez Attending Unavailable Ruth Rodriguez Referring Unavailable VandPeggy Suresh Attending Unavailabl e Clatonia PA, Xenia Primary Care Unavailable Javede VelPeggy koenig Referring Unavailabl e Vande VeldePeggy Attending Unavailabl e Vande VeldePeggy Referring Unavailabl e Clatonia PA, Xenia Primary Care Unavailable Laurence Mccrary Referring Unavailable Laurence Mccrary Attending Unavailable Clatonia PA, Xenia Primary Care Unavailable Vande VelPeggy koenig Attending Unavailabl e Clatonia PA, Xenia Referring Unavailable Clatonia PA, Xenia Primary Care Unavailable Silviano Daley Referring Unavailable Silviano Daley Consulting Unavailable Silviano Daley Attending Unavailable Clatonia PA, Xenia Primary Care Unavailable Silviano Daley Referring Unavailable Silviano Daley Attending Unavailable Clatonia PA, Xenia Primary Care Unavailable Christy Whitten Attending Unavailable Clatonia PA, Xenia Primary Care Unavailable Clatonia PA, Xenia Referring Unavailable Laurence Mccrary Attending Unavailable Clatonia PA, Xenia Referring Unavailable Clatonia PA, [place] Primary Care Unavailable Vande VelPeggy koenig Attending Unavailabl e Clatonia PA, Xenia Referring Unavailable Clatonia PA, [place] Primary Care Unavailable Vande VelPeggy koenig Attending Unavailabl e Clatonia PA, Xenia Referring Unavailable Clatonia PA, [place] Primary Care Unavailable Ruth Rodriguez Attending Unavailable Vande VelPeggy koenig Referring Unavailabl e Vande VeldePeggy Attending Unavailabl e Clatonia PA, [place] Primary Care Unavailable Laurence Mccrary Attending Unavailable Vande VeldePeggy Attending Unavailabl e Clatonia PA, [place] Primary Care Unavailable Clatonia PA, Xenia Referring Unavailable Silviano Daley Attending Unavailable Clatonia PA, [place] Primary Care Unavailable Clatonia PA, Xenia Referring Unavailable Laurence Mccrary Attending Unavailable Clatonia PA, Xenia Referring Unavailable Laurence Mccrary Referring Unavailable Laurence Mccrary Attending Unavailable [facility], [place] Primary Care Unavailable Javede Peggy Sanchez Referring Unavailabl e Vande VeldePeggy Attending Unavailabl e Clatonia PA, [place] Primary Care Unavailable Javede Peggy Sanchez Attending Unavailabl e Clatonia PA, [place] Primary Care Unavailable Javede Peggy Sanchez Referring Unavailabl e Silviano Daley Referring Unavailable Silviano Daley Attending Unavailable Clatonia PA, [place] Primary Care Unavailable Vande Peggy Sanchez Attending Unavailabl e Clatonia PA, [place] Primary Care Unavailable Lidya Booker Attending Unavailable Lidya Booker Referring Unavailable [facility], [place] Primary Care Unavailable Vande VelPeggy koenig Attending Unavailabl e Vande VeldePeggy Referring Unavailabl e Clatonia PA, Xenia Primary Care Unavailable Vande VelPeggy koenig Attending Unavailabl e Vande VeldePeggy Referring Unavailabl e Clatonia PA, [place] Primary Care Unavailable Fernando Al Attending Unavailable Clatonia PA, [place] Primary Care Unavailable Jay Liu Attending Unavailable Clatonia PA, [place] Primary Care Unavailable Pancho Gagnon Attending Unavailable Clatonia PA, [place] Primary Care Unavailable Vande VelPeggy koenig Referring Unavailabl e Vande Velde, Peggy Attending [facility] e [facility] Primary Care Unavailable Vande Velde, Peggy Referring Unavailabl e Vande Velde, Peggy [facility], [place] Primary Care Unavailable Vande Velde, Peggy Referring Unavailabl e Vande Velde, Peggy [facility]ending [facility] Care Unavailable SylonySilviano Referring Unavailable MarcanthonySilviano Attending Unavailable [facility] Primary [facility] Unavailable Marcanthony, Silviano Referring Unavailable Marcanthony, Silviano Attending Unavailable [facility] Unavailable Laurence Mccrary Referring Unavailable AtanasovLaurence Attending Unavailable [facility] Unavailable Atanasov, Laurence Attending Unavailable Atanasov, Laurence Referring Unavailable [facility] Unavailable Marcanthony, Silviano Referring Unavailable Marcanthony, Silviano Attending Unavailable [facility] Primary [facility] Unavailable AtanasovLaurence Referring Unavailable AtanasovLaurence Attending Unavailable [facility] Unavailable Allergies Allergy Classification Reported Allergen(s) Allergy Type Date of Onset Reaction(s) Facility (20 sources) Non-steroidal anti-inflammator y agent Propensity to adverse reactions 4 [facility] (14 sources) Nonsteroidal Anti-inflammator y Compounds Propensity to adverse reactions 5 PT UNSURE OF REACTION [facility] Comment on above: due to gastric bypas s unable to take oral NSAIDS (1 source) NSAID Drug allergy (disorder) [facility] (1 source) NSAIDS (Non-Steroidal Anti-Inflamma Drug allergy (disorder) 5 [facility] Repository Medications Current Medications Medication Drug Class(es) Dates Sig (Normalized) Sig (Original) ergocalciferol 1.25 mg oral capsule (20 sources) Provitamin D2 Compound Start: 03-06-2024 take 1 capsule by mouth every week, then take 1 capsule by mouth every week ergocalciferol (Vitamin D2) 1.25 MG (48628 UT) capsule Indications: Vitamin D Deficiency Take 1 capsule (1.25 mg) by mouth 1 (one) time per week. Take one capsule by mouth weekly for 8 weeks. 8 capsule 03/06/2024 Active Start: 02-25-2023 End: 04-16-2023 take 1 capsule by mouth every week, then take 1 capsule by mouth every week ergocalciferol (Vitamin D2) 1.25 MG (36389 UT) capsule Indications: Vitamin D Deficiency Take 1 capsule (1.25 mg) by mouth 1 (one) time per week for 8 doses. Take one capsule by mouth weekly for 8 weeks. 8 capsule 0 02/25/2023 04/16/2023 Active Start: 12-15-2022 End: 02-03-2023 take 1 capsule by mouth every week, then take 1 capsule by mouth every week ergocalciferol (Vitamin D2) 1.25 MG (31438 UT) capsule Indications: Vitamin D Deficiency Take 1 capsule (1.25 mg) by mouth 1 (one) time per week for 8 doses. Take one capsule by mouth weekly for 8 weeks. 8 capsule 0 12/15/2022 02/03/2023 Active L. Acidophilus/Bifid. Animal is (Daily Probiotic) 2.5 billion cell capsule (10 sources) Start: 03-11-2022 L. Acidophilus /Bifid. Animalis (Daily Probiotic) 2.5 billion cell capsule Active CAP PO March 11, 2022 1:00am Start: 03-11-2022 L. Acidophilus /Bifid. Animalis (Daily Probiotic) 2.5 billion cell capsule Active CAP PO March 11, 2022 12:00am magnesium gluconate 550 mg oral tablet (20 sources) take 1 tablet by mouth twice daily magnesium 30 MG tablet Take 30 mg by mouth 2 times daily. Active Multiple Vitamin (MULTIVITAMIN PO) (1 source) Multiple Vitamin (MULTIVITAMIN PO) Take by mouth Barilife - vitamin- takes once a day Active Multiple Vitamins-Minerals (BARIATRIC MULTIVITAMINS/IRON PO) (4 sources) Start: 11-15-2023 take 1 tablet by mouth once daily Multiple Vitamins-Minerals (BARIATRIC MULTIVITAMINS/IRON PO) Take 1 tablet by mouth daily. 11/15/2023 Active Multiple Vitamins-Minerals (Centrum Adults) tablet (5 sources) Start: 03-06-2024 take 2 tablets by mouth once daily Multiple Vitamins-Minerals (Centrum Adults) tablet Indications: Low folate , Low iron Take 2 tablets by mouth daily. 60 tablet 11 03/06/2024 Active Multivitamin mineral supplement (CENTRUM) TABS tablet (1 source) Start: 03-06-2024 take 2 tablets by mouth once daily Multivitamin mineral supplement (CENTRUM) TABS tablet Take 2 Tablets by mouth daily 03/06/2024 Active Vit w/Ei-Xntaklizo-OB (PNV PO) (1 source) take 1 tablet by mouth once daily Vit w/Ud-Ymeuebbax-RZ (PNV PO) Take 1 Tablet by mouth daily Active Respiratory Therapy Supplies (CareTouch 2 CPAP Hose Dominatrix) misc (20 sources) Respiratory Ther apy Supplies (CareTouch 2 CPAP Hose Dominatrix) misc Indications: Obstructive Sleep Apnea Syndrome CPAP 10 cm h20 Active Respiratory Ther apy Supplies (CareTouch 2 CPAP Hose Dominatrix) misc Indications: Obstructive Sleep Apnea Syndrome 10 cm h20 Suspended Respiratory Ther apy Supplies (CareTouch 2 CPAP Hose Dominatrix) misc Indications: Obstructive Sleep Apnea Syndrome 10 cm h20 Active Respiratory Ther apy Supplies (CareTouch 2 CPAP Hose Dominatrix) misc Indications: Obstructive Sleep Apnea Syndrome 10 cm h20 0 Suspended Respiratory Ther apy Supplies (CareTouch 2 CPAP Hose Dominatrix) misc Indications: Obstructive Sleep Apnea Syndrome 10 cm h20 0 Active vitamin b12 0.5 mg sublingual tablet (20 sources) Vitamin B12 Start: 05-12-2024 take 1 tablet under the tongue once daily, then take 1 tablet under the tongue once daily Cyanocobalamin (B-12) 500 MCG sublingual tablet Indications: B12 deficiency Place 500 mcg under the tongue daily. Place 500 mcg under the tongue to dissolve once daily 30 tablet 11 05/12/2024 Active Start: 10-29-2023 End: 11-02-2023 inject 1000 ug by intramuscular injection every 30 days 1,000 mcg, IntraMUSCular, Every 30 days, First dose on Wed10/29/23 at 1115 Start: 12-15-2022 End: 11-15-2023 take 1 tablet under the tongue once daily Cyanocobalamin (Vitamin B-12) [address] 1 Dose under the tongue daily. 12/15/2022 11/15/2023 Discontinued VITAMIN D PO (1 source) VITAMIN D PO Floyd e 6,000 Int'l Units by mouth daily Active VITAMIN D, CHOLECALCIFEROL, PO (20 sources) Start: 05-21-2023 VITAMIN D, CHO LECALCIFEROL, PO Take 4,000 Int'l Units by mouth daily. 05/21/2023 Suspended Start: 05-21-2023 VITAMIN D, CHO LECALCIFEROL, PO Take 4,000 Int'l Units by mouth daily. 05/21/2023 Active Start: 05-21-2023 VITAMIN D, CHO LECALCIFEROL, PO Take 4,000 Int'l Units by mouth daily. 0 05/21/2023 Suspended Start: 05-21-2023 VITAMIN D, CHO LECALCIFEROL, PO Take 4,000 Int'l Units by mouth daily. 0 05/21/2023 Active VITAMIN D, GERARDO CALCIFEROL, PO Take by mouth daily. 0 Active zinc gluconate 50 mg oral tablet (5 sources) Start: 03-06-2024 take 1 tablet by mouth once daily zinc 50 MG tablet Indications: Low zinc level Take 1 tablet (50 mg) by mouth daily. 30 tablet 3 03/06/2024 Active Completed/Discontinued Medications Medication Drug Class(es) Dates Sig (Normalized) Sig (Original) Acetaminophen (8 sources) Start: 10-28-2023 End: 11-02-2023 take 1 tablet by mouth every six hours as needed for pain and fever acetaminophen (Tylenol) tablet 650 mg Start: 06-04-2023 End: 06-11-2023 take 1000 mg intravenously every eight hours 1,000 mg, IntraVENous, at 400 mL/hr, Administer over 15 Minutes, Every 8 hours, First dose on Wed06/04/23 at 0000, Phase II/On Unit Start: 05-19-2023 End: 05-21-2023 1,000 mg, IntraVENous, at 40 0 mL/hr, Administer over 15 Minutes, Every 8 hours scheduled (3 times per day), First dose on Wed05/19/23 at 2345, Phase II/On Unit, Drug Name: IV Tylenol, Form: injection, Length of Therapy: Indefinite, How soon needed? (normally 72 hrs needed to procure): 0-24 hrs, Reason for Non-Formulary: NPO Start: 05-10-2023 End: 05-10-2023 acetaminophen (Tylenol) tabl et 1,000 mg acetaminophen 325 mg / oxyCODONE hydrochloride 5 mg oral tablet (20 sources) Opioid Agonist Start: 05-21-2023 End: 05-27-2023 take 1 tablet by mouth every eight hours as needed for pain oxyCODONE-acetaminophen (Percocet) 5-325 MG tablet Indications: Hemoperitoneum , Morbid obesity with BMI of 60.0-69.9, adult (HCC) Take 1 tablet by mouth every 8 hours as needed for severe pain (7-10) for up to 3 days. 9 tablet 0 05/21/2023 05/27/2023 Discontinued Start: 05-11-2023 End: 05-21-2023 take 1 tablet by mouth every six hours as needed for pain oxyCODONE-acetaminophen (Percocet) 5-325 MG tablet Indications: Morbid obesity with BMI of 60.0-69.9, adult (HCC) Take 1 tablet by mouth every 6 hours as needed for severe pain (7-10) for up to 5 days. 20 tablet 0 05/11/2023 05/21/2023 Discontinued (Stop taking at discharge) Start: 05-11-2023 End: 05-11-2023 take 1 tablet by mouth every four hours as needed for pain oxyCODONE-acetaminophen (Percocet) 5-325 MG per tablet 1 tablet Start: 06-02-2013 End: 06-04-2013 Oxycodone-Acetaminophen 1 TA BLET tablet Discontinued 1 - 2 {tbl} PO EVERY 4 HOURS NEEDED as needed for Moderate Pain June 02, 2013 12:00am June 04, 2013 7:31am Start: 06-02-2013 End: 06-04-2013 take 1 tablet by mouth every four hours as needed Oxycodone-Acetaminophen Discontinued 1 - 2 TABLET PO EVERY 4 HOURS NEEDED June 02, 2013 12:00am June 04, 2013 7:31am Adult TPN Central Line (8 sources) Start: 06-10-2023 End: 06-11-2023 Adult TPN Central Line Start: 06-09-2023 End: 06-10-2023 Adult TPN Central Line Start: 06-08-2023 End: 06-09-2023 Adult TPN Central Line Start: 06-07-2023 End: 06-08-2023 Adult TPN Central Line albuterol 0.83 mg/ml inhalation solution (2 sources) beta2-Adrenergic Agonist Start: 05-11-2023 End: 05-11-2023 albuterol (2.5 MG/3ML) 0.083% nebulizer solution 2.5 mg ALPRAZolam 0.25 mg disintegrating oral tablet (2 sources) Benzodiazepine Start: 05-10-2023 End: 05-10-2023 ALPRAZolam (Xanax) disintegrating tablet 0.25 mg barium sulfate (E-Z-Paque) 96 % suspension 176 g (2 sources) Start: 06-04-2023 End: 06-04-2023 barium sulfate (E-Z-Paque) 96 % suspension 176 g calcium carbonate 500 mg chewable tablet (14 sources) Start: 05-21-2023 End: 08-11-2023 calcium carbonate (Tums) 500 MG chewable tablet Chew 500 mg 3 times daily. 05/21/2023 08/11/2023 Discontinued calcium chloride 0.0014 meq/ml / potassium chloride 0.004 meq/ml / sodium chloride 0.103 meq/ml / sodium lactate 0.028 meq/ml injectable solution (16 sources) Start: 10-28-2023 End: 11-02-2023 take 75 mL intravenously every hour 75 mL/hr, IntraVENous, Continuous, Starting on Wed10/28/23 at 1545 Start: 06-04-2023 End: 06-07-2023 lactated ringers bolus 500 m L Start: 06-03-2023 End: 06-07-2023 take 75 mL intravenously every hour 75 mL/hr, IntraVEN ous, Continuous, Starting on Wed06/03/23 at 2355, Phase II/On Unit Start: 05-19-2023 End: 05-21-2023 take 100 mL intravenously every hour 100 mL/hr, IntraVENous, Continuous, Starting on Wed05/19/23 at 2345, Phase II/On Unit Start: 05-10-2023 End: 05-10-2023 1,000 mL, IntraVENous, at 50 0 mL/hr, Administer over 2 Hours, Once, On Wed05/10/23 at 2200, For 1 dose, Phase II/On Unit Start: 05-10-2023 End: 05-11-2023 lactated ringers bolus 1,000 mL calcium citrate 950 mg oral tablet (20 sources) Start: 10-27-2023 End: 10-28-2023 475 mg (rounded from 500 mg) , Oral, 3 times daily, First dose on Wed10/27/23 at 0900 Start: 08-11-2023 End: 06-27-2024 take 2 tablets by mouth three times daily Calcium Citrate 250 MG TABS Take 2 Tablets (500 mg) by mouth 3 times daily 08/11/2023 Active celecoxib 400 mg oral capsule (2 sources) Nonsteroidal Anti-inflammatory Drug Start: 05-10-2023 End: 05-10-2023 celecoxib (CeleBREX) capsule 400 mg cephalexin 500 mg oral capsule (3 sources) Cephalosporin Antibacterial Start: 05-04-2023 End: 05-11-2023 take 1 capsule by mouth twice daily cephalexin (Keflex) 500 MG capsule Indications: Acute cystitis without hematuria Take 1 capsule (500 mg) by mouth 2 times daily for 5 days. 10 capsule 0 05/04/2023 05/11/2023 Discontinued (Stop taking at discharge) cholecalciferol 0.025 mg oral capsule (20 sources) Vitamin D Start: 05-16-2024 End: 07-04-2024 take 1 capsule by mouth once daily Cholecalciferol (Vitamin D3) 125 mcg (5,000 unit) capsule Discontinued 125 ug PO daily May 16, 2024 12:00am July 04, 2024 11:05am Start: 05-16-2024 End: 07-04-2024 take 1 capsule by mouth once daily Cholecalciferol (Vitamin D3) 25 mcg (1,000 unit) capsule Discontinued 25 ug PO daily May 16, 2024 12:00am July 04, 2024 11:05am Start: 03-06-2024 End: 05-11-2024 take 2 capsules by mouth once daily cholecalciferol (Vitamin D-3) 50 MCG (2000 UT) capsule Indications: Vitamin D deficiency Take 2 capsules (100 mcg) by mouth daily. 180 capsule 3 03/06/2024 05/11/2024 Discontinued Start: 10-27-2023 End: 10-28-2023 take 125 ug by mouth once daily 125 mcg, Oral, Daily, First dose on Wed10/27/23 at 0900 Start: 10-19-2023 End: 03-02-2024 take 1 tablet by mouth once daily Cholecalciferol (Vitamin D3) 100 mcg (4,000 unit) tablet Discontinued 100 ug PO DAILY October 19, 2023 12:00am March 02, 2024 10:07am Start: 03-11-2022 take 25 ug by mouth once daily Cholecalciferol (Vitamin D3) Active 25 MCG PO DAILY March 11, 2022 1:00am colestipol hydrochloride 1000 mg oral tablet (20 sources) Bile Acid Sequestrant Start: 02-17-2023 End: 05-27-2023 Colestipol 1 gram tablet Discontinued 1 g PO ONCE February 17, 2023 1:00am March 18, 2023 1:00am March 19, 2023 1:05am Start: 04-29-2022 take 1 g by mouth once Colesti maureen Active 1 GM PO ONCE April 29, 2022 1:00am 24 hr desvenlafaxine succinate 50 mg extended release oral tablet (19 sources) Serotonin and Norepinephrine Reuptake Inhibitor Start: 06-18-2022 End: 09-24-2022 take 1 tablet by mouth at bedtime, then take 1 tablet by mouth every twenty-four hours Desvenlafaxine Succinate (Pristiq) 50 mg tablet extended release 24 hr Discontinued 50 mg PO AT BEDTIME June 18, 2022 12:00am September 24, 2022 2:10pm diatrizoate meglumine-sodium (Gastrografin) 66-10 % solution 30 mL (6 sources) Start: 06-03-2023 End: 06-03-2023 diatrizoate meglumine-sodium (Gastrografin) 66-10 % solution 30 mL Start: 05-19-2023 End: 05-19-2023 diatrizoate meglumine-sodium (Gastrografin) 66-10 % solution 30 mL Start: 05-11-2023 End: 05-11-2023 diatrizoate meglumine-sodium (Gastrografin) 66-10 % solution 30 mL dicyclomine hydrochloride 20 mg oral tablet (20 sources) Anticholinergic Start: 06-29-2022 End: 10-19-2023 take 1 tablet by mouth twice daily as needed Dicyclomine 20 mg tablet Discontinued 20 mg PO TWICE A DAY as needed September 24, 2022 2:10pm October 19, 2023 8:05am 0.3 ml enoxaparin sodium 100 mg/ml prefilled syringe (20 sources) Low Molecular Weight Heparin Start: 10-27-2023 End: 10-28-2023 Start: 06-07-2023 End: 06-11-2023 inject 40 mg by subcutaneous injection every twelve hours enoxaparin (Lovenox) syringe 40 mg Start: 05-10-2023 End: 05-11-2023 inject 40 mg by subcutaneous injection twice daily 40 mg, SubCUTAneous, 2 times daily, First dose on Wed05/11/23 at 0900, Phase II/On Unit, Indication of Use: Prophylaxis-DVT/PE Start: 04-08-2023 End: 05-25-2023 inject 0.6 mL by subcutaneous injection in the morning, then inject 0.6 mL by subcutaneous injection in the evening, then inject 0.6 mL by subcutaneous injection twice daily enoxaparin (Lovenox) 60 MG/0.6ML solution prefilled syringe Indications: Deep Vein Thrombosis Prophylaxis in Bariatric Surgery Inject 0.6 mL (60 mg) under the skin in the morning and 0.6 mL (60 mg) in the evening. Do all this for 14 days. Inject 0.6 mLs into skin 2 times daily for 14 days.. 28 each 0 04/08/2023 05/21/2023 Discontinued (Stop taking at discharge) Start: 04-06-2022 End: 04-13-2022 Enoxaparin (Lovenox) 40 mg/0 .4 mL syringe Discontinued 40 mg SC DAILY April 06, 2022 1:00am April 13, 2022 4:34pm famotidine 20 mg oral tablet (2 sources) Histamine-2 Receptor Antagonist Start: 05-11-2023 End: 05-11-2023 famotidine (Pepcid) tablet 20 mg ferrous sulfate 325 mg oral tablet (20 sources) Start: 05-16-2024 End: 07-04-2024 take 1 tablet by mouth once daily Ferrous Sulfate 325 mg (65 mg iron) tablet Discontinued 325 mg PO daily May 16, 2024 12:00am July 04, 2024 11:04am Start: 05-12-2024 take 1 tablet by chase th twice daily ferrous sulfate (FEOSOL) 325 (65 FE) MG TABS tablet Take 325 mg by mouth 2 times daily 05/12/2024 Active Start: 12-15-2022 End: 11-15-2023 take 1 tablet by mouth twice daily ferrous sulfate 325 (65 Fe) MG tablet Indications: Low serum ferritin level , Low serum iron Take 1 tablet (325 mg) by mouth 2 times daily. 30 tablet 3 12/15/2022 11/15/2023 Discontinued Start: 03-12-2021 End: 03-02-2024 take 1 tablet by mouth once daily Ferrous Sulfate (Iron) 325 mg (65 mg iron) Tablet Discontinued 325 mg PO DAILY March 12, 2021 1:00am March 02, 2024 10:07am flecainide acetate 100 mg or al tablet (20 sources) Antiarrhythmic Start: 10-27-2023 End: 10-28-2023 Start: 08-23-2023 End: 2023 flecainide (Tambocor) 50 MG tablet Take 3 tablets (150 mg) by mouth Once as needed (Take 3 pills as needed for episodes of atrial fibrillation). 30 tablet 3 08/23/2023 Active fluconazole 150 mg oral tablet (14 sources) Azole Antifungal Start: 08-17-2023 End: 10-19-2023 Fluconazole 150 mg tablet Discontinued 150 mg PO .COMPLEX 2 August 17, 2023 12:00am October 19, 2023 8:05am 150 mg PO take one po now and repeat in 3 days gabapentin 100 mg oral capsule (2 sources) Anti-epileptic Agent Start: 05-10-2023 End: 05-10-2023 gabapentin (Neurontin) capsule 100 mg 500 ml glucose 50 mg/ml / potassium chloride 0.02 meq/ml / sodium chloride 4.5 mg/ml injection (2 sources) Start: 05-10-2023 End: 05-11-2023 take 100 mL intravenously every hour 100 mL/hr, IntraVENous, Continuous, Starting on Wed05/10/23 at 2130, Phase II/On Unit heparin sodium, porcine 100 unt/ml injectable solution (6 sources) Unfractionated Heparin, Anti-coagulant Start: 06-07-2023 End: 06-11-2023 take 250 [IU] intraluminal route every twelve hours heparin flush injection 250 Units Start: 05-10-2023 End: 05-10-2023 heparin injection 5,000 Unit s 1 ml HYDROmorphone hydrochloride 1 mg/ml cartridge (6 sources) Opioid Agonist Start: 10-27-2023 End: 10-28-2023 take 1 mg intravenously every four hours as needed for pain 1 mg, IntraVENous, Every 4 hours PRN, severe pain (7-10), Starting on Wed10/27/23 at 0150, If oral and IV narcotics ordered, use oral first and only use IV if oral is ineffective or cannot take oral. Do Not give oral and IV within 1 hour of each other unless specifically ordered. Start: 10-27-2023 End: 10-28-2023 take 0.5 mg intravenously every four hours as needed for pain 0.5 mg, IntraVENous, Every 4 hours PRN, moderate pain (4-6), Starting on Wed10/27/23 at 0150, If oral and IV narcotics ordered, use oral first and only use IV if oral is ineffective or cannot take oral. Do Not give oral and IV within 1 hour of each other unless specifically ordered. Start: 05-10-2023 End: 05-10-2023 HYDROmorphone (Dilaudid) injection 0.5 mg HYDROmorphone (Dilaudid) injection 0.25 mg (4 sources) Start: 05-19-2023 End: 05-21-2023 HYDROmorphone (Dilaudid) injection 0.25 mg Start: 05-10-2023 End: 05-11-2023 HYDROmorphone (Dilaudid) inj ection 0.25 mg hydrOXYzine hydrochloride 10 mg oral tablet (2 sources) Antihistamine Start: 05-10-2023 End: 05-11-2023 take 1 tablet by mouth every eight hours as needed 10 mg, Oral, Every 8 hours PRN, itching, Starting on Wed05/10/23 at 2115, Phase II/On Unit iopamidol (Isovue-370) 76 % injection 75 mL (4 sources) Start: 06-03-2023 End: 06-03-2023 iopamidol (Isovue-370) 76 % injection 75 mL Start: 05-19-2023 End: 05-19-2023 iopamidol (Isovue-370) 76 % injection 75 mL 1 ml ketorolac tromethamine 30 mg/ml cartridge (2 sources) Nonsteroidal Anti-inflammatory Drug, Cyclooxygenase Inhibitor Start: 05-10-2023 End: 05-11-2023 15 mg, IntraVENous, Every 8 hours scheduled (3 times per day), First dose on Wed05/10/23 at 2200, For 2 days, Phase II/On Unit labetalol hydrochloride 5 mg/ml injectable solution (2 sources) beta-Adrenergic Erika Start: 05-10-2023 End: 05-11-2023 take 10 mg intravenously every four hours as needed for hypertension labetalol (Normodyne,Tranda te) injection 10 mg levonorgestrel 0.215733 mg/hr intrauterine system (19 sources) Progestin, Progestin-containing Intrauterine Device End: 02-11-2024 levonorgestrel (Mikie) 13.5 MG IUD by IntraUTERine route Once. 02/11/2024 Discontinued (Med list cleanup) magnesium chloride 535 mg delayed release oral tablet (2 sources) Start: 10-27-2023 End: 10-28-2023 take 1 tablet by mouth once daily 64 mg (1 tablet), Oral, Daily, First dose on Wed10/27/23 at 0900, Do not crush, chew, or split. 50 ml magnesium sulfate 40 mg/ml injection (4 sources) Start: 06-07-2023 End: 06-07-2023 magnesium sulfate IVPB premix 2,000 mg Start: 05-21-2023 End: 05-21-2023 magnesium sulfate IVPB premi x 2,000 mg 2 ml metoclopramide 5 mg/ml prefilled syringe (2 sources) Dopamine-2 Receptor Antagonist Start: 06-03-2023 End: 06-03-2023 metoclopramide (Reglan) injection 10 mg metoprolol tartrate 25 mg oral tablet (20 sources) beta-Adrenergic Erika Start: 07-05-2023 End: 07-04-2024 take 1 tablet by mouth twice daily Metoprolol Tartrate 25 mg tablet Discontinued 25 mg PO TWICE A DAY May 17, 2024 12:00am June 27, 2024 11:37pm Start: 06-09-2023 End: 06-11-2023 metoprolol tartrate (Lopress or) tablet 25 mg Start: 06-07-2023 End: 06-11-2023 take 5 mg intravenously every six hours metoprolol tartrate (Lopressor) injection 5 mg Start: 06-05-2023 End: 06-07-2023 take 2.5 mg intravenously every eight hours metoprolol tartrate (Lopressor) injection 2.5 mg Start: 06-04-2023 End: 06-05-2023 take 5 mg intravenously every eight hours 5 mg, IntraVENous, Every 8 hours, First dose on Wed06/04/23 at 0045, Phase II/On Unit Start: 05-19-2023 End: 05-21-2023 take 5 mg intravenously every six hours 5 mg, IntraVENous, Every 6 hours, First dose on Wed05/19/23 at 2345, Phase II/On Unit Start: 03-12-2023 End: 07-05-2023 take 1 tablet by mouth once daily metoprolol succinate XL (Toprol-XL) 50 MG 24 hr tablet Take 50 mg by mouth daily. 0 03/12/2023 07/05/2023 Discontinued (Ineffective) Start: 12-20-2022 End: 01-08-2024 take 1 tablet by mouth once daily metoprolol succinate XL (Toprol-XL) 25 MG 24 hr tablet Indications: Paroxysmal atrial fibrillation (HCC) Take 1 tablet (25 mg) by mouth daily. 90 tablet 3 01/08/2023 07/05/2023 Discontinued (Ineffective) 1 ml morphine sulfate 4 mg/ml cartridge (2 sources) Opioid Agonist Start: 05-19-2023 End: 05-19-2023 morphine injection 4 mg Zzkomonscqez-Bot-Tmzr-Fa -Vit K (Bariatric Multivitamins) 45 mg iron- 800 mcg-120 mcg capsule (14 sources) Start: 11-10-2023 End: 07-04-2024 Byakxqokkgna-Yca-Vqns-Fa-V it K (Bariatric Multivitamins) 45 mg iron- 800 mcg-120 mcg capsule Discontinued 1 NMA PO DAILY November 10, 2023 12:00am July 04, 2024 11:04am Start: 11-10-2023 Multivitamin-M fl-Etji-Hl-Vit K (Bariatric Multivitamins) 45 mg iron- 800 mcg-120 mcg capsule Active 1 NMA PO DAILY November 10, 2023 12:00am 1 ml naloxone hydrochloride 0.4 mg/ml injection (8 sources) Opioid Antagonist Start: 10-27-2023 End: 10-28-2023 0.4 mg, IntraVENous, Every 5 min PRN, opioid reversal, respiratory depression, Starting on Wed10/27/23 at 0150, +++ For RR Start: 06-03-2023 End: 06-11-2023 naloxone (Narcan) injection 0.4 mg Start: 05-19-2023 End: 05-21-2023 naloxone (Narcan) injection 0.4 mg Start: 05-10-2023 End: 05-11-2023 naloxone (Narcan) injection 0.4 mg nitrofurantoin, macrocrystals 25 mg / nitrofurantoin, monohydrate 75 mg oral capsule (20 sources) Nitrofuran Antibacterial Start: 03-12-2021 End: 02-24-2022 take 1 capsule by mouth once daily Nitrofurantoin Monohyd/M-Cryst (Macrobid) 100 mg Capsule Discontinued 100 mg PO DAILY March 12, 2021 1:00am February 24, 2022 5:39pm nystatin 721713 unt/ml oral suspension (18 sources) Polyene Antifungal Start: 05-20-2023 End: 06-11-2023 nystatin (Mycostatin) [id number] UNIT/ML suspension Swish and swallow 5 mL (500,000 Units) 3 times daily for 10 days. 150 mL 05/20/2023 06/11/2023 Discontinued (Stop taking at discharge) Start: 05-20-2023 End: 05-21-2023 nystatin (Mycostatin) [id number] UNIT/ML suspension 500,000 Units nystatin (Mycost atin) [id number] UNIT/GM powder Apply topically 2 times daily. Active omeprazole 20 mg delayed release oral capsule (20 sources) Proton Pump Inhibitor Start: 04-08-2023 End: 02-11-2024 take 1 capsule by mouth once daily omeprazole (PriLOSEC) [address] capsule Take 1 capsule (20 mg) by mouth daily. Do not crush or chew. 90 capsule 1 04/08/2023 02/11/2024 Discontinued (Med list cleanup) 2 ml ondansetron 2 mg/ml injection (14 sources) Serotonin-3 Receptor Antagonist Start: 10-28-2023 End: 10-28-2023 4 mg, IntraVENous, Once, On Jazmyn 10/28/23 at 0940, For 1 dose Start: 10-27-2023 End: 10-27-2023 4 mg, IntraVENous, Once, On Wed10/27/23 at 0125, For 1 dose Start: 06-03-2023 End: 06-11-2023 take 4 mg intravenously every six hours as needed for nausea and vomiting ondansetron (Zofran) injection 4 mg Start: 05-19-2023 End: 05-19-2023 ondansetron (Zofran) injecti on 4 mg Start: 05-11-2023 End: 05-21-2023 take 1 tablet by mouth every eight hours as needed for nausea and vomiting ondansetron (Zofran) 4 MG tablet Take 1 tablet (4 mg) by mouth every 8 hours as needed for nausea or vomiting for up to 5 days. 15 tablet 0 05/11/2023 05/21/2023 Discontinued (Stop taking at discharge) ondansetron ODT (Zofran-ODT) disintegrating tablet 4 mg (8 sources) Start: 10-28-2023 End: 11-02-2023 take 1 tablet by mouth every eight hours as needed for nausea and vomiting ondansetron ODT (Zofran-ODT) disintegrating tablet 4 mg Start: 10-27-2023 End: 10-28-2023 take 1 tablet by mouth every eight hours as needed for nausea and vomiting ondansetron ODT (Zofran-ODT) disintegrating tablet 4 mg Start: 05-19-2023 End: 05-21-2023 take 1 tablet by mouth every eight hours as needed for nausea and vomiting ondansetron ODT (Zofran-ODT) disintegrating tablet 4 mg Start: 05-10-2023 End: 05-11-2023 take 1 tablet by mouth every eight hours as needed for nausea and vomiting ondansetron ODT (Zofran-ODT) disintegrating tablet 4 mg pantoprazole 40 mg delayed r elease oral tablet (4 sources) Proton Pump Inhibitor Start: 10-27-2023 End: 10-28-2023 Start: 05-11-2023 End: 05-11-2023 40 mg, IntraVENous, Administ er over 2 Minutes, Daily, First dose on Wed05/11/23 at 0900, Phase II/On Unit pantoprazole (ProtoNix) 40 m g in sodium chloride (PF) 0.9 % 10 mL injection (4 sources) Start: 06-04-2023 End: 06-11-2023 40 mg, IntraVENous, Administ er over 2 Minutes, 2 times daily, First dose on Wed06/04/23 at 0600, Phase II/On Unit, Reconstitute with 10 ml NS. Vial expires 2 hrs after reconstitution. Start: 05-20-2023 End: 05-21-2023 40 mg, IntraVENous, Administ er over 2 Minutes, Daily, First dose on Wed05/20/23 at 0900, Phase II/On Unit, Reconstitute with 10 ml NS. Vial expires 2 hrs after reconstitution. Pediatric Multivitamins-Iron (FLINTSTONES PLUS IRON PO) (20 sources) Start: 05-21-2023 End: 10-28-2023 take 2 tablets by mouth once daily Pediatric Multivitamins-Iron (FLINTSTONES PLUS IRON PO) Take 2 tablets by mouth daily. 05/21/2023 10/28/2023 Discontinued (Therapy completed) Start: 05-21-2023 take 2 tablets by mo uth once daily Pediatric Multivitamins-Iron (FLINTSTONES PLUS IRON PO) Take 2 tablets by mouth daily. 05/21/2023 Active Start: 05-21-2023 take 2 tablets by mo uth once daily Pediatric Multivitamins-Iron (FLINTSTONES PLUS IRON PO) Take 2 tablets by mouth daily. 0 05/21/2023 Suspended Start: 05-21-2023 take 2 tablets by mo uth once daily Pediatric Multivitamins-Iron (FLINTSTONES PLUS IRON PO) Take 2 tablets by mouth daily. 0 05/21/2023 Active perflutren protein A microsphere (Optison) 3 mL in sodium chloride (PF) 0.9 % 10 mL IV syringe (2 sources) Start: 01-12-2023 End: 01-12-2023 perflutren protein A microsp here (Optison) 3 mL in sodium chloride (PF) 0.9 % 10 mL IV syringe v No.[id number]-Dha-Epa-Fi sh 400 mcg-35 mg- 25 mg-5 mg tablet,chewable (9 sources) Start: 05-16-2024 End: 07-04-2024 Pnv No.[id number]-Dha-Epa-Fi sh 400 mcg-35 mg- 25 mg-5 mg tablet,chewable Discontinued {tbl} PO DAILY May 16, 2024 12:00am July 04, 2024 11:04am Start: 05-16-2024 Pnv No.153-[id number]- Bb4-Exo-Gma-Fish 400 mcg-35 mg- 25 mg-5 mg tablet,chewable Active {tbl} PO DAILY May 16, 2024 12:00am polyethylene glycol 3350 58570 mg powder for oral solution (4 sources) Osmotic Laxative Start: 10-30-2023 End: 11-02-2023 take 1 dose by mouth every twenty-four hours for constipation 17 g, Oral, Daily, First dose (after last modification) on 10/30/23 at 1045, 1st line for treatment of constipation - give scheduled if no bowel movement in past 24 hours. Start: 10-27-2023 End: 10-28-2023 take 17 g by mouth every twenty-four raquel rs as needed for constipation microencapsulated potassium chloride 10 meq extended release oral tablet (18 sources) Start: 11-01-2023 End: 11-01-2023 40 mEq, Oral, Once, On Wed11/01/23 at 1145, For 1 dose, Best given with food and plenty of water to minimize gastric irritation. Do not crush or chew. Start: 10-29-2023 End: 10-29-2023 40 mEq, IntraVENous, at 125 mL/hr, Administer over 4 Hours, Once, On Wed10/29/23 at 0945, For 1 dose, Max infusion rate = 10 mEq/hr Start: 06-10-2023 End: 06-10-2023 potassium chloride 40 mEq in NS 500 mL IVPB (premix) Start: 06-09-2023 End: 06-09-2023 potassium chloride 40 mEq in NS 500 mL IVPB (premix) Start: 06-08-2023 End: 06-08-2023 potassium chloride 40 mEq in NS 500 mL IVPB (premix) Start: 06-07-2023 End: 06-07-2023 potassium chloride 40 mEq in NS 500 mL IVPB (premix) Start: 06-06-2023 End: 06-06-2023 potassium chloride 40 mEq in NS 500 mL IVPB (premix) Start: 06-05-2023 End: 06-05-2023 potassium chloride 40 mEq in NS 500 mL IVPB (premix) Start: 05-21-2023 End: 05-21-2023 potassium chloride CR (Klor- Con M10) ER tablet 40 mEq Vit,Iakf85-Osqs-Jfagm (Prenatabs Fa ) 1 TABLET tablet (20 sources) Start: 05-02-2013 End: 06-04-2013 take 1 tablet by mouth once daily Vit,Mxau54-Lmzt-Sdezz (Prenatabs Fa ) 1 TABLET tablet Discontinued 1 {tbl} PO DAILY May 02, 2013 12:00am June 04, 2013 7:31am Start: 05-02-2013 End: 06-04-2013 take 1 tablet by mouth once daily Vit,Nahm19-Zilf-Epiyw (Prenatab s Fa ) 1 TABLET tablet Discontinued 1 TABLET PO DAILY May 02, 2013 12:00am June 04, 2013 7:31am Start: 05-02-2013 End: 06-04-2013 take 1 tablet by mouth once daily Vit,Nmem11-Yisa-Ujqdl (Prenatab s Fa ) 1 TABLET tablet Discontinued 1 TABLET PO DAILY May 01, 2013 11:00pm June 04, 2013 6:31am Vit,Qyum91-Ndru-Rajlz (Prenatabs Fa) 1 TABLET tablet (20 sources) Start: 04-24-2015 End: 02-24-2022 take 1 tablet by mouth once daily Vit,Qgpv43-Twem-Attcv (Prenatabs Fa) 1 TABLET tablet Discontinued 1 {tbl} PO DAILY April 24, 2015 1:00am February 24, 2022 5:39pm Start: 04-24-2015 End: 02-24-2022 take 1 tablet by mouth once daily Vit,Sguo85-Qtou-Ktupi (Prenatab s Fa) 1 TABLET tablet Discontinued 1 TABLET PO DAILY April 24, 2015 1:00am February 24, 2022 5:39pm Start: 04-24-2015 End: 01-03-2023 take 1 tablet by mouth once daily Vit,Dtiv05-Xwck-Scqjp (Prenatab s Fa) 1 TABLET tablet Discontinued 1 TABLET PO DAILY April 24, 2015 12:00am February 24, 2022 4:39pm progesterone 200 mg oral capsule (2 sources) Progesterone Start: 06-28-2024 End: 07-04-2024 Progesterone Micronized 200 mg capsule Discontinued 200 mg VAGINAL AT BEDTIME 30 June 28, 2024 12:00am July 04, 2024 11:04am Promethazine (2 sources) Phenothiazine Start: 06-06-2023 End: 06-11-2023 take 1 tablet by mouth every six hours as needed for nausea and vomiting promethazine (Phenergan) tablet 25 mg 72 hr scopolamine 0.0139 mg/hr transdermal system (2 sources) Anticholinergic Start: 06-04-2023 End: 06-11-2023 scopolamine (Transderm-Scop) patch 1 patch 50 ml sodium chloride 9 mg/ml injection (20 sources) Start: 10-28-2023 End: 10-28-2023 1,000 mL, IntraVENous, at 1,000 mL/hr, Administer over 1 Hours, Once, On Wed10/28/23 at 0940, For 1 dose Start: 10-26-2023 End: 10-27-2023 1,000 mL, IntraVENous, at 1, 000 mL/hr, Administer over 1 Hours, Once, On Wed10/26/23 at 2240, For 1 dose Start: 06-07-2023 End: 06-11-2023 take 10 mL intraluminal route every twelve hours sodium chloride 0.9% (NS) flush 10 mL Start: 06-03-2023 End: 06-03-2023 sodium chloride 0.9 % bolus 1,000 mL Start: 05-19-2023 End: 05-19-2023 sodium chloride 0.9 % bolus 500 mL Start: 05-10-2023 End: 05-11-2023 10 mL, IntraVENous, Every 12 hours scheduled (2 times per day), First dose on Wed05/10/23 at 2130, Phase II/On Unit Start: 05-10-2023 End: 05-11-2023 take 100 mL intravenously every hour as needed, then take 20 mL intravenously every hour as needed 5-250 mL/hr, IntraVENous, PRN, if patient receiving piggyback infusions and maintenance fluids are not ordered OR KVO fluids to protect IV site / prevent frequent line interruptions/ long duration, Starting on Wed05/10/23 at 2115, Phase II/On Unit, For piggyback infusion, administer at same rate as piggyback for a total of 25 mL. Enter 25 mL into dose field and piggyback rate into rate field of order. If piggyback is infusing at a rate less than 100 mL/hr, enter 25 mL into dose field and 100 mL/hr into rate field of order. For KVO fluids, enter rate of 20 mL/hr or less into rate field of order. Start: 05-10-2023 End: 05-11-2023 take 10 mL intravenously once as needed 10 mL, IntraVENous, PRN, line care, Starting on Wed05/10/23 at 2115, Phase II/On Unit, After every IV line use Start: 01-12-2023 End: 01-12-2023 sodium chloride 0.9 % infusi on sodium chloride 0.9 % 1,000 mL with multiple vitamin 10 mL, thiamine 100 mg, folic acid 1 mg infusion (2 sources) Start: 10-29-2023 End: 10-29-2023 100 mL/hr, IntraVENous, Once, On Wed10/29/23 at 1230, For 1 dose sulfamethoxazole 800 mg / trimethoprim 160 mg oral tablet (4 sources) Dihydrofolate Reductase Inhibitor Antibacterial, Sulfonamide Antimicrobial Start: 06-30-2023 End: 08-11-2023 take 1 tablet by mouth twice daily sulfamethoxazole- trimethoprim (Bactrim DS) 800-160 MG tablet Take 1 tablet by mouth 2 times daily. 06/30/2023 08/11/2023 Discontinued (Med list cleanup) therapeutic multivitamin-minerals (Theragran-M) tablet (2 sources) Start: 10-27-2023 End: 10-28-2023 take 1 tablet by mouth once daily 1 tablet, Oral, Daily, First dose on Wed10/27/23 at 0900 thiamine 100 mg oral tablet (20 sources) Start: 10-27-2023 End: 10-28-2023 take 50 mg by mouth once daily 50 mg, Oral, Daily, First dose on Wed10/27/23 at 0900 Start: 08-11-2023 take 1 tablet by chase th once daily, then take 1 tablet by mouth once daily thiamine (Vitamin B-1) 50 MG tablet Indications: Deficiency of multiple nutrient elements , Intestinal malabsorption, unspecified type , MOE on CPAP , Primary hypertension , Morbid obesity with BMI of 50.0-59.9, adult (HCC) , History of Sandra-en-Y gastric bypass Take 1 tablet (50 mg) by mouth daily. Take 1 tablet by mouth daily. 30 tablet 08/11/2023 Active vancomycin 125 mg oral capsule (20 sources) Glycopeptide Antibacterial Start: 05-08-2022 End: 05-18-2022 take 1 capsule by mouth every six hours Vancomycin 125 mg capsule Discontinued 125 mg PO EVERY 6 HOURS 40 10 May 08, 2022 12:00am May 17, 2022 12:00am May 18, 2022 12:04am Problems Active Problems Problem Classification Problem Date Documented Da te Episodic/Chronic Abdominal pain (20 sources) Abdominal pain; Translations: [Unspecified abdominal pain] Onset: 08-10-2023 04-29-2022 Episodic Cardiac dysrhythmias (20 sources) Paroxysmal atrial fibrillation; Translations: [Paroxysmal atrial fibrillation] Onset: 01-08-2023 12-22-2022 Chronic Deficiency and other anemia (3 sources) Anemia; Translations: [Anemia, unspecified] 06-28-2024 Episodic Diabetes mellitus without complication (20 sources) Prediabetes; Translations: [Prediabetes] Onset: 09-10-2022 04-13-2022 Episodic Comment on above: labs ordered for ful l evaluation, nutritonist consult Disorders of lipid metabolism (20 sources) Hypercholesterolemia; Translations: [Pure hypercholesterolemia, unspecified] Onset: 01-08-2023 12-15-2022 Chronic Essential hypertension (20 sources) Hypertensive disorder; Translations: [Essential (primary) hypertension] Onset: 04-08-2023 09-03-2022 Chronic Comment on above: EKG ordered, refer t o PCP for management, needs started on medication Gastritis and duodenitis (20 sources) Chronic superficial gastritis; Translations: [Chronic superficial gastritis without bleeding] Onset: 01-10-2023 01-10-2023 Chronic Gastrointestinal hemorrhage (20 sources) Rectal hemorrhage; Translations: [Hemorrhage of anus and rectum] Onset: 06-28-2024 04-29-2022 Episodic Genitourinary symptoms and ill-defined conditions (7 sources) Dysuria; Translations: [Hematuria, unspecified] Onset: 08-10-2023 Episodic Headache; including migraine (2 sources) Headache; including migraine; Translations: [Headache, unspecified] Onset: 10-24-2023 Hemorrhage during ; abruptio placenta; placenta previa (20 sources) Antepartum hemorrhage; Translations: [Hemorrhage in early , unspecified] Onset: 05-11-2024 02-28-2024 Episodic Hypertension complicating ; childbirth and the puerperium (20 sources) Hypertension complicating , childbirth and the puerperium; Translations: [Unspecified maternal hypertension, complicating childbirth] 02-23-2022 Chronic Immunizations and screening for infectious disease (11 sources) Contact with and (suspected) exposure to infections with a predominantly sexual mode of transmission; Translations: [Contact with or exposure to venereal diseases] 03-11-2022 Episodic Malaise and fatigue (20 sources) Fatigue; Translations: [Other fatigue] Onset: 06-28-2024 12-17-2023 Episodic Menstrual disorders (1 source) Amenorrhea, unspecified; Translations: [Amenorrhea, unspecified] Onset: 05-18-2024 Chronic Miscellaneous mental health disorders (20 sources) Binge eating disorder; Translations: [Binge eating disorder] Onset: 06-28-2024 09-03-2022 Chronic Mood disorders (20 sources) Depressive disorder; Translations: [Depression] 06-18-2022 Chronic Comment on above: Pristiq. counseling recommended. Noninfectious gastroenteritis (17 sources) Chronic diarrhea; Translations: [Noninfective gastroenteritis and colitis, unspecified] 04-29-2022 Episodic Nutritional deficiencies (20 sources) Vitamin D deficiency; Translations: [Vitamin D deficiency, unspecified] Onset: 06-03-2023 12-15-2022 Chronic Nutritional deficiencies (20 sources) Serum iron low; Translations: [Iron deficiency] Onset: 06-17-2023 12-15-2022 Episodic Other aftercare (5 sources) Postoperative visit; Translations: [Encounter for other specified surgical aftercare] 05-27-2023 Episodic Other circulatory disease (20 sources) H/O: atrial fibrillation; Translations: [Personal history of other diseases of the circulatory system] 05-16-2024 Episodic Comment on above: stopped metoprolol w ith +HPT Other circulatory disease (1 source) Personal history of other diseases of the circulatory system; Translations: [Personal history of other diseases of the circulatory system] Onset: 06-28-2024 Episodic Other complications of (20 sources) Maternal obesity complicating , childbirth and the puerperium, antepartum; Translations: [Obesity complicating , unspecified trimester] 05-16-2024 Chronic Comment on above: HgbA1c Other complications of (1 source) Obesity complicating , unspecified trimester; Translations: [Obesity complicating , unspecified trimester] Onset: 06-28-2024 Chronic Other complications of (20 sources) Headache; Translations: [Other specified related conditions, unspecified trimester] 02-23-2022 Episodic Other complications of (20 sources) High risk ; Translations: [Supervision of high risk , unspecified, unspecified trimester] 05-16-2024 Episodic Comment on above: , LANIE 12/27/24, [facility] Al[facility], [place], [place], [place], [employer] [employer] (waiting on GCC) , LANIE 12/27/24, [facility] Alvarez, [place], [place], [place], [employer] [employer], , LANIE 12/27, [facility] Alvarez, [place], [place], [place], Fiance Dano Other complications of (20 sources) Pain in female pelvis; Translations: [Other specified related conditions, first trimester] 05-25-2024 Episodic Comment on above: pelvic w transvag Other complications of (8 sources) Urinary tract infection in ; Translations: [Unspecified infection of urinary tract in , unspecified trimester] 06-19-2024 Episodic Other complications of (3 sources) Short cervical length in ; Translations: [Cervical shortening, unspecified trimester] 06-28-2024 Episodic Comment on above: ordered progesterone and recommend MFM consult Other complications of (1 source) Unspecified infection of urinary tract in , unspecified trimester; Translations: [Unspecified infection of urinary tract in , unspecified trimester] Onset: 06-28-2024 Episodic Other complications of (1 source) Other specified related conditions, first trimester; Translations: [Other specified related conditions, first trimester] Onset: 06-28-2024 Episodic Other complications of (1 source) Supervision of high risk , unspecified, unspecified trimester; Translations: [Supervision of high risk , unspecified, unspecified trimester] Onset: 06-28-2024 Episodic Other connective tissue disease (2 sources) Swelling of lower limb; Translations: [Other specified soft tissue disorders] 05-20-2023 Episodic Other disorders of stomach and duodenum (1 source) Nonulcer dyspepsia; Translations: [Functional dyspepsia] 01-12-2023 Episodic Other female genital disorders (1 source) Abnormal uterine and vaginal bleeding, unspecified; Translations: [Abnormal uterine and vaginal bleeding, unspecified] Onset: 07-24-2024 Chronic Other female genital disorders (16 sources) H/O: miscarriage; Translations: [Recurrent loss] 03-11-2022 Episodic Other female genital disorders (20 sources) Recurrent loss; Translations: [Recurrent loss without current ] Onset: 06-28-2024 03-11-2022 Episodic Comment on above: APL panel Other female genital disorders (20 sources) Recurrent miscarriage; Translations: [Recurrent loss] 03-02-2024 Episodic Other female genital disorders (2 sources) History of recurrent miscarriage - not ; Translations: [Recurrent loss] Onset: 07-19-2024 07-19-2024 Episodic Other gastrointestinal disorders (19 sources) Irritable bowel syndrome with diarrhea; Translations: [Irritable bowel syndrome with diarrhea] 06-29-2022 Chronic Other gastrointestinal disorders (5 sources) Irritable bowel syndrome with diarrhea; Translations: [Irritable bowel syndrome] 06-29-2022 Chronic Other gastrointestinal disorders (20 sources) Intestinal malabsorption; Translations: [Intestinal malabsorption, unspecified] Onset: 06-17-2023 05-26-2023 Chronic Other gastrointestinal disorders (2 sources) Intestinal malabsorption, unspecified; Translations: [Intestinal malabsorption, unspecified] Onset: 06-17-2023 Chronic Other gastrointestinal disorders (2 sources) Hemorrhage into peritoneal cavity; Translations: [Hemoperitoneum] 05-19-2023 Episodic Other gastrointestinal disorders (20 sources) Constipation; Translations: [Constipation, unspecified] 10-19-2023 Episodic Other gastrointestinal disorders (4 sources) Bariatric surgery status; Translations: [Bariatric surgery status] Onset: 10-24-2023 Episodic Other gastrointestinal disorders (1 source) Constipation, unspecified; Translations: [Constipation, unspecified] Onset: 06-28-2024 Episodic Other inflammatory condition of skin (3 sources) Intertrigo; Translations: [Erythema intertrigo] 11-15-2023 Episodic Other liver diseases (20 sources) Steatosis of liver; Translations: [Fatty (change of) liver, not elsewhere classified] Onset: 04-08-2023 04-08-2023 Chronic Other liver diseases (20 sources) Lesion of liver; Translations: [Liver disease, unspecified] 02-29-2024 Chronic Other liver diseases (20 sources) Inflammatory disease of liver; Translations: [Inflammatory liver disease, unspecified] 11-12-2023 Chronic Comment on above: Tested negative Hep A,B,C- viral cause, resolved Other liver diseases (2 sources) Inflammatory liver disease, unspecified; Translations: [Inflammatory liver disease, unspecified] Onset: 01-12-2024 Chronic Other liver diseases (1 source) Liver disease, unspecified; Translations: [Liver disease, unspecified] Onset: 06-28-2024 Chronic Other liver diseases (2 sources) Alkaline phosphatase raised; Translations: [Abnormal levels of other serum enzymes] 10-27-2023 Episodic Other liver diseases (20 sources) Elevated liver enzymes level; Translations: [Abnormal levels of other serum enzymes] 11-11-2023 Episodic Other liver diseases (5 sources) Abnormal levels of other serum enzymes; Translations: [Abnormal levels of other serum enzymes] Onset: 10-26-2023 Episodic Other nutritional; endocrine; and metabolic disorders (20 sources) Morbid obesity; Translations: [Morbid (severe) obesity due to excess calories] 03-11-2022 Chronic Comment on above: plan weight manageme nt consult discussed with recom mend amount of weight loss recommended, this will be most achievable with a comprehensive approach of nutrition and behavior changes, medication and ultimately likely surgery. [facility] referral placed.initial obesity assessment lab panel ordered Other nutritional; endocrine; and metabolic disorders (20 sources) Morbid (severe) obesity due to excess calories; Translations: [Morbid obesity] Onset: 10-29-2023 03-11-2022 Chronic Other nutritional; endocrine; and metabolic disorders (18 sources) Obesity; Translations: [Other obesity] 09-03-2022 Chronic Other nutritional; endocrine; and metabolic disorders (4 sources) Body mass index (BMI) 60.0-69.9, adult; Translations: [Body Mass Index 60.0-69.9, adult] Onset: 06-28-2024 09-03-2022 Chronic Other nutritional; endocrine; and metabolic disorders (4 sources) Other obesity; Translations: [Obesity, unspecified] 09-03-2022 Chronic Other nutritional; endocrine; and metabolic disorders (20 sources) Body mass index 40+ - severely obese; Translations: [Morbid (severe) obesity due to excess calories] Onset: 01-10-2023 09-10-2022 Chronic Other nutritional; endocrine; and metabolic disorders (2 sources) Obesity caused by energy imbalance; Translations: [Morbid (severe) obesity due to excess calories] 05-10-2023 Chronic Other nutritional; endocrine; and metabolic disorders (1 source) Severe obesity; Translations: [Morbid (severe) obesity due to excess calories] 08-24-2023 Chronic Other nutritional; endocrine; and metabolic disorders (2 sources) Hyperbilirubinemia; Translations: [Other disorders of bilirubin metabolism] 10-28-2023 Chronic Other nutritional; endocrine; and metabolic disorders (2 sources) Body mass index (BMI) 45.0-49.9, adult; Translations: [Body mass index (BMI) 45.0-49.9, adult ([facility])] Onset: 10-29-2023 Chronic Other nutritional; endocrine; and metabolic disorders (2 sources) Other disorders of bilirubin metabolism; Translations: [Other disorders of bilirubin metabolism] Onset: 10-28-2023 Chronic Other nutritional; endocrine; and metabolic disorders (2 sources) Body mass index (BMI) 50.0-59.9, adult; Translations: [Body mass index (BMI) 50.0-59.9, adult ([facility])] Onset: 06-17-2023 Chronic Other nutritional; endocrine; and metabolic disorders (1 source) Hypomagnesemia; Translations: [Hypomagnesemia] Onset: 03-15-2024 Chronic Other and delivery including normal (20 sources) Vaginal delivery; Translations: [Encounter for full-term uncomplicated delivery] Onset: 06-28-2024 02-23-2022 Episodic Comment on above: 6w6d on 05/10/24 declines NIPT &Zully er testing Other skin disorders (20 sources) Hirsutism; Translations: [Hirsutism] 09-03-2022 Episodic Comment on above: hormonal labs ordere d Other skin disorders (4 sources) Hirsutism; Translations: [Hirsutism] Onset: 06-28-2024 09-03-2022 Episodic Residual codes; unclassified (20 sources) Daytime hypersomnia; Translations: [Hypersomnia, unspecified] 09-24-2022 Chronic Residual codes; unclassified (2 sources) Hypersomnia, unspecified; Translations: [Hypersomnia, unspecified] Onset: 06-28-2024 09-24-2022 Chronic Residual codes; unclassified (20 sources) Obstructive sleep apnea syndrome; Translations: [Obstructive sleep apnea (adult) (pediatric)] Onset: 01-08-2023 01-08-2023 Chronic Residual codes; unclassified (2 sources) Obstructive sleep apnea (adult) (pediatric); Translations: [Obstructive sleep apnea (adult) (pediatric)] Onset: 06-09-2023 Chronic Residual codes; unclassified (1 source) Sleep apnea; Translations: [Sleep apnea, unspecified] 07-19-2024 Chronic Residual codes; unclassified (3 sources) At high risk of venous thromboembolism; Translations: [Other specified personal risk factors, not elsewhere classified] 04-08-2023 Episodic Residual codes; unclassified (2 sources) Feeding problem; Translations: [Other specified health status] 06-07-2023 Episodic Residual codes; unclassified (1 source) 13 weeks gestation of ; Translations: [13 weeks gestation of ] Onset: 06-28-2024 Episodic Spontaneous (20 sources) Miscarriage; Translations: [Complete or unspecified spontaneous without complication] Onset: 04-04-2024 04-13-2022 Episodic Comment on above: quant decreasing, US nl. follow to negative recommend MFM consul t for preconception due to suspected cervical incompetence Unclassified (1 source) Elevation of levels of liver transaminase levels; Translations: [Elevation of levels of liver transaminase levels] Onset: 10-28-2023 Past or Other Problems Problem Classification Problem Date Documented Da te Episodic/Chronic Allergic reactions (1 source) Allergy status to analgesic agent status; Translations: [Allergy status to analgesic agent] Onset: 10-24-2023 Episodic Bacterial infection; unspecified site (3 sources) Bacteremia; Translations: [Bacteremia] Onset: 10-25-2023 Episodic Calculus of urinary tract (1 source) Personal history of urinary calculi; Translations: [Personal history of urinary calculi] Onset: 08-10-2023 Episodic Coma; stupor; and brain damage (20 sources) Daytime somnolence; Translations: [Somnolence] Onset: 09-10-2022 09-10-2022 Episodic Conditions associated with dizziness or vertigo (20 sources) Dizziness; Translations: [Dizziness and giddiness] Onset: 05-19-2023 05-19-2023 Episodic Contraceptive and procreative management (20 sources) Encounter for insertion of intrauterine contraceptive device; Translations: [Encounter for insertion of intrauterine contraceptive device] Onset: 12-17-2023 Resolved: 12-17-2023 05-08-2022 Episodic Comment on above: removed in office Deficiency and other anemia (1 source) Anemia, unspecified; Translations: [Anemia, unspecified] Onset: 03-15-2024 Episodic Ectopic (20 sources) Ectopic ; Translations: [Unspecified ectopic without intrauterine ] Onset: 03-31-2024 03-18-2024 Episodic Comment on above: Rpt HCG 03/22 Fever of unknown origin (3 sources) Fever, unspecified; Translations: [Fever, unspecified] Onset: 10-22-2023 Episodic Fluid and electrolyte disorders (20 sources) Dehydration; Translations: [Dehydration] Onset: 06-09-2023 06-04-2023 Episodic Gastritis and duodenitis (1 source) Duodenitis without bleeding; Translations: [Duodenitis without bleeding] Onset: 10-25-2023 Episodic Nausea and vomiting (20 sources) Nausea and vomiting; Translations: [Nausea with vomiting, unspecified] Onset: 06-03-2023 06-03-2023 Episodic Other aftercare (2 sources) Encounter for other specified surgical aftercare; Translations: [Encounter for other specified surgical aftercare] Onset: 06-17-2023 Episodic Other aftercare (1 source) 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; Translations: [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] Onset: 10-24-2023 Episodic Other aftercare (1 source) 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; Translations: [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] Onset: 10-24-2023 Episodic Other circulatory disease (3 sources) Orthostatic hypotension; Translations: [Orthostatic hypotension] Onset: 07-05-2023 07-05-2023 Episodic Other circulatory disease (1 source) Orthostatic hypotension; Translations: [Orthostatic hypotension] Onset: 07-05-2023 Episodic Other gastrointestinal disorders (20 sources) History of bypass of stomach; Translations: [Bariatric surgery status] Onset: 06-09-2023 06-09-2023 Episodic Other liver diseases (20 sources) Enzyme level - finding; Translations: [Transaminitis] Onset: 10-27-2023 10-27-2023 Episodic Other nutritional; endocrine; and metabolic disorders (3 sources) Loss of appetite; Translations: [Anorexia] Onset: 10-26-2023 10-27-2023 Episodic Other nutritional; endocrine; and metabolic disorders (1 source) Anorexia; Translations: [Anorexia] Onset: 10-26-2023 Episodic Other screening for suspected conditions (not mental disorders or infectious disease) (20 sources) Low serum ferritin; Translations: [Abnormal level of blood mineral] Onset: 10-29-2023 12-15-2022 Episodic Pancreatic disorders (not diabetes) (20 sources) Painless pancreatitis; Translations: [Acute pancreatitis without necrosis or infection, unspecified] Onset: 06-03-2023 06-03-2023 Episodic Residual codes; unclassified (20 sources) History of clinical finding in subject; Translations: [Personal history of other specified conditions] Onset: 05-03-2023 05-03-2023 Episodic Residual codes; unclassified (20 sources) Difficult venous access; Translations: [Other specified health status] Onset: 05-03-2023 05-03-2023 Episodic Residual codes; unclassified (2 sources) Other specified health status; Translations: [Other specified health status] Onset: 06-03-2023 Episodic Residual codes; unclassified (1 source) Acquired absence of other specified parts of digestive tract; Translations: [Acquired absence of other specified parts of digestive tract] Onset: 10-24-2023 Episodic Spondylosis; intervertebral disc disorders; other back problems (20 sources) Chronic low back pain; Translations: [Chronic midline low back pain without sciatica] Onset: 09-10-2022 09-10-2022 Episodic Unclassified (1 source) Elevation of levels of liver transaminase levels; Translations: [Elevation of levels of liver transaminase levels] Onset: 10-28-2023 Urinary tract infections (3 sources) Acute cystitis; Translations: [Acute cystitis without hematuria] Onset: 08-10-2023 05-04-2023 Episodic Results Test Name Value Interpretation Reference Range Facility BETA 2 GLYCOPROTEIN ABSon Beta 2 GP1 Ab IgG, S <9.4 Invalid Interpretation Code <15.0 (Negative) [facility] Comment on above: Order Comment: Relea se to patient->Automatic Beta 2 GP1 Ab IgM, S <9.4 Invalid Interpretation Code <15.0 (Negative) [facility] Comment on above: Order Comment: Relea se to patient->Automatic Result Comment: Test Performed by: [place] [address] [employer]: Katerina Pandey Ph.D.; CLIA# [id number] CARDIOLIPIN ABon 07-19-2024 IgG Phospholipid AB, S <9.4 Invalid Interpretation Code <15.0 (Negative) [facility] Comment on above: Order Comment: Relea se to patient->Automatic Result Comment: Test Performed by: [place] [address] [employer]: Katerina Pandey Ph.D.; CLIA# [id number] IgM Phospholipid AB, S <9.4 Invalid Interpretation Code <15.0 (Negative) [facility] Comment on above: Order Comment: Relea se to patient->Automatic DILUTE RVVT SCREEN RATIO WIT H REFLEXon 07-19-2024 DRVVT Screen Ratio 0.90 ratio Invalid Interpretation Code <1.20 [facility] Comment on above: Order Comment: Relea se to patient->Automatic Result Comment: Test Performed by: [place] [address] [employer]: Katerina Pandey Ph.D.; CLIA# [id number] DRVVT INTERPRETATION (LAB ON LY REFLEX)on 07-19-2024 DRVVT Interpretation SEE COMMENTS Invalid Interpretation Code [facility] Comment on above: Result Comment: Impr ession: 1. No evidence of lupus anticoagulant based on the dilute Isaac viper venom time testing only; see comments and suggest clinical correlation. 2. If additional evaluation for presence of antiphospholipid antibodies is clinically indicated, consider obtaining serologic testing for IgG and IgM anti-cardiolipin and/or anti-beta-2 glycoprotein 1 antibodies. Comments: The normal dilute Isaac viper venom time (DRVVT) screen ratio provides no evidence of lupus anticoagulant by this single methodology. A normal DRVVT screen ratio does not exclude the possibility of lupus anticoagulant. NOTE: Interpretation not reviewed by physician. Currently, the International Society on Thrombosis and Haemostasis (ISTH) and the Clinical and Laboratory Standards [place] (CLSI) recommend testing for lupus anticoagulant with at least two phospholipid dependent clotting time assays based on different coagulation pathways and principles (e.g. lupus-sensitive APTT, DRVVT, etc.). If clinically indicated, consider future follow up testing Coagulation Consultation [id number] (Lupus Anticoagulant Profile, ALUPP). 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 [id number] presents for consultation regarding history of Sandra-en-y gastric bypass complicating , however she has a spontaneous loss at 14w1d on 06/29/24. That was complicated by heavy bleeding starting at 12 weeks. She has had a total of 8 SABs (7 first trimester and 1 second trimester). She has 4 living children ages 11, 9, 6 and 3. Her 3 year old and 7-8 losses are with her current partner. They would like more children together, but are afraid of additional losses. 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 The cell free DNA results are reportedly negative (actual lab result not available today). Her son was dx with a physiologic midgut herniation, and is healthy and now 3.5 yrs old doing well. No other known genetic testing during , carrier screen or parental microarray done. Genetic counseling done at that time. OB History Para Term AB Living 14 4 4 10 3 SAB IAB Ectopic Multiple Live Births 8 1 1 3 # Outcome Date GA Lbr Jorje/2nd Weight Sex Type Anes PTL Lv 14 SAB 06/29/24 14w1d 13 Ectopic 02/28/24 ECTOPIC Comments: methotrexate 12 Term 03/12/21 39w2d 3.657 kg M Vag-Spont 11 SAB 03/2020 10 IAB 2020 9 Term 05/03/18 3.062 kg F Vag-Spont None N KEDAR 8 Term 04/2015 41w0d 3.289 kg M Vag-Spont EPI N KEDAR 7 SAB 02/2014 6w0d 6 Term 05/2013 40w0d 3.685 kg M Vag-Spont EPI N KEDAR 5 SAB SAB 4 SAB SAB 3 SAB 2 SAB 1 SAB Past Medical History: Diagnosis Date History of atrial fibrillation A fib-has Tambocor prn, resolved with weight loss Hypertension resolved with weight loss Obesity BMI 40 Recurrent loss Sleep apnea CPAP in past Transaminitis 10/2023-resolved and unexplained Past Surgical History: Procedure Laterality Date CHOLECYSTECTOMY gerardo lap COLONOSCOPY had rectal bleeding, and family history of diverticulitis, and grandparents with hx of ulcerative of colitis INGUINAL HERNIA REPAIR age 4 SANDRA-EN-Y GASTRIC BYPASS may 10, 2023 PERTINENT FAMILY HISTORY: Family History Problem Relation Age of Onset High Blood Pressure Mother Fibromyalgia Mother Depression Mother Anxiety Disorder Mother Skin Cancer Mother Thyroid Disease Mother Osteoarthritis Father Mult Sclerosis Sister No known problems Brother No known problems Brother Cancer Maternal Grandmother Non Hodgkins Lymphoma Diabetes Mellitus II Maternal Grandfather No known problems Daughter No known problems Son No known problems Son MEDS: Outpatient Medications Marked as Taking for the 07/19/24 encounter (Office Visit) with Vidya Ott, Medication Sig Dispense Refill VITAMIN D PO Take 6,000 Int'l Units by mouth daily Calcium Citrate 250 MG TABS Take 2 Tablets (500 mg) by mouth 3 times daily ferrous sulfate (FEOSOL) 325 (65 FE) MG TABS tablet Take 325 mg by mouth 2 times daily ALLERGY: Allergies[1] REVIEW OF SYSTEMS: Review of Systems All other systems reviewed and are negative. PHYSICAL EXAM: VITAL SIGNS: BP 130/90 (BP Site: Right Arm, Patient Position: Sitting, BP Cuff Size: Lg Adult) Pulse 90 Resp 18 Ht 167.6 cm Wt (!) 113 kg (249 lb 3.2 oz) SpO2 100% No BMI 40.22 kg/m Physical Exam Vitals reviewed. Constitutional: General: She is active. HENT: Head: Atraumatic. Eyes: Conjunctiva/sclera: Conjunctivae normal. Neurological: Mental Status: She is alert. IMPRESSION AND RECOMMENDATIONS: Anne Marie is a 28 y.o. at 14w1d with Active Non-Hospital Problems Diagnosis Date Noted Recurrent loss without current 07/19/2024 - APLS testing ordered - Genetic consult scheduled History of Sandra-en-Y gastric bypass 07/19/2024 - Highest weight 400 lbs, now 249 lbs - Had cHTN and Afib, resolved with weight loss - Sleep apnea symptoms resolved, discontinued CPAP - Instructed by bariatric team to take daily multivitamin and vitamin - Has weight management follow-up in October - Recommend continued weight loss with health nutrition and exercise - She is active, walking, gardening, activities with her kids Encounter for preconception consultation 07/19/2024 Routine Preconception Recommendations were discussed and included: Maintaining a healthy lifestyle with diet and exercise Ensuring vaccinations are up to date. Continue folic acid supplementation to reduce risk of defects. Has nutrition follow-up scheduled. Working with her current physicians to achieve the best medication regimen- the fewest amount of drugs at the lowest dose to control symptoms. (more content not included)... Normal [facility] Absolute lymphocyte countOrd ered By: Silviano Daley on 07-04-2024 Lymphocytes Auto (Unsp spec) [#/Vol] 1.79 10*3/uL 0.83-4.51 [facility] Absolute neutrophil countOrd ered By: Silviano Daley on 07-04-2024 Neutrophils (Bld) [#/Vol] 4.4 10*3/uL 2.0-7.7 [facility] Automated lymphocyte count a s percentage of total leukocytesOrdered By: Sivliano Daley on 07-04-2024 Lymphocytes/100 WBC Auto (Unsp spec) 26.7 % 19-41 [facility] Basophil percentageOrdered B y: Silviano Daley on 07-04-2024 Basophils/100 WBC (Bld) 0.3 % 0-1 [facility] CBC W/Diff, Automatedon 06-22 Absolute Lymph 1.79 X10 3/uL Normal 0.83-4.51 [facility] Comment on above: Performed By: #### L 100.0100 ####[facility] [address] [place], [address] Absolute Neut 4.4 X10 3/uL Normal 2.0-7.7 [facility] Comment on above: Performed By: #### L 100.0100 ####[facility] [address] [place], [address] Basophils/100 WBC (Bld) 0.3 % Normal 0-1 [facility] Comment on above: Performed By: #### L 100.0100 ####[facility] [address] [place], [address] Eosinophils/100 WBC (Bld) 0.7 % Normal 0-5 [facility] Comment on above: Performed By: #### L 100.0100 ####[facility] [address] [place], [address] Erythrocyte distribution width (RBC) [Ratio] 15.7 % High 11.6-14.6 [facility] Comment on above: Performed By: #### L 100.0100 ####[facility] [address] [place], [address] Hematocrit (Bld) [Volume fraction] 28.3 % Low 37-47 [facility] Comment on above: Performed By: #### L 100.0100 ####[facility] [address] [place], [address] Hemoglobin (Bld) [Mass/Vol] 8.8 g/dL Low 12.0-15.0 [facility] Comment on above: Performed By: #### L 100.0100 ####[facility] [address] [place], [address] IG% 0.700 Normal 0.0-0.9 [facility] Comment on above: Result Comment: IG% - Immature Granulocytes (promyelocytes, myelocytes andmetamyelocytes) > 1% indicates that a LEFT SHIFT is Present. Performed By: #### L 100.0100 ####[facility] [address] [place], [address] Lymphocytes/100 WBC (Bld) 26.7 % Normal 19-41 [facility] Comment on above: Performed By: #### L 100.0100 ####[facility] [address] [place], [address] MCH (RBC) [Entitic mass] 24.5 pg Low 27.0-32.0 [facility] Comment on above: Performed By: #### L 100.0100 ####[facility] [address] [place], [address] MCHC (RBC) [Mass/Vol] 31.1 g/dL Low 32-36 [facility] Comment on above: Performed By: #### L 100.0100 ####[facility] [address] [place], [address] MCV (RBC) [Entitic vol] 78.8 fL Low 81-99 [facility] Comment on above: Performed By: #### L 100.0100 ####[facility] [address] [place], [address] Monocytes/100 WBC (Bld) 6.6 % Normal 0-10 [facility] Comment on above: Performed By: #### L 100.0100 ####[facility] [address] [place], [address] Neutrophils/100 WBC (Bld) 65.0 % Normal 47-70 [facility] Comment on above: Performed By: #### L 100.0100 ####[facility] [address] [place], [address] Nucleated RBC (Bld) [#/Vol] 0 10*3/uL Normal 0-5 [facility] Comment on above: Performed By: #### L 100.0100 ####[facility] [address] [place], [address] Platelet mean volume (Bld) [Entitic vol] 9.9 fL Normal 6.2-12.0 [facility] Comment on above: Performed By: #### L 100.0100 ####[facility] [address] [place], [address] Platelets (Bld) [#/Vol] 360 10*3/uL Normal 150-450 [facility] Comment on above: Performed By: #### L 100.0100 ####[facility] [address] [place], [address] RBC (Bld) [#/Vol] 3.59 10*6/uL Low 4.2-5.4 [facility] Comment on above: Performed By: #### L 100.0100 ####[facility] [address] [place], [address] RDW SD 44.7 fl High 35.1-43.9 [facility] Comment on above: Performed By: #### L 100.0100 ####[facility] [address] [place], [address] WBC (Bld) [#/Vol] 6.7 10*3/uL Normal 4.4-11.0 [facility] Comment on above: Performed By: #### L 100.0100 ####[facility] [address] [place], [address] Eosinophil percentageOrdered By: Silviano Daley on 07-04-2024 Eosinophils/100 WBC (Bld) 0.7 % 0-5 [facility] Erythrocyte distribution wid th ratioOrdered By: Silviano Daley on 07-04-2024 Erythrocyte distribution width (RBC) [Ratio] 15.7 % High 11.6-14.6 [facility] Erythrocyte distribution wid th standard deviationOrdered By: Silviano Daley on 07-04-2024 Erythrocyte distribution width (RBC) [Ratio] 44.7 fl High 35.1-43.9 [facility] Hematocrit Auto (Bld) [Volum e fraction]Ordered By: Silviano Daley on 07-04-2024 Hematocrit (Bld) [Volume fraction] 28.3 % Low 37-47 [facility] Hemoglobin measurementOrdere d By: Silviano Daley on 07-04-2024 Hemoglobin (Bld) [Mass/Vol] 8.8 g/dL Low 12.0-15.0 [facility] Immature granulocytes/100 WB C Auto (Bld)Ordered By: Silviano Daley on 07-04-2024 Immature granulocytes/100 WBC (Bld) 0.700 % 0.0-0.9 [facility] Comment on above: IG% - Immature Granu locytes (promyelocytes, myelocytes and metamyelocytes) > 1% indicates that a LEFT SHIFT is Present. MCV (mean corpuscular volume ) determinationOrdered By: Silviano Daley on 07-04-2024 MCV (RBC) [Entitic vol] 78.8 fL Low 81-99 [facility] Mean corpuscular hemoglobin (MCH) determinationOrdered By: Silviano Daley on 07-04-2024 MCH (RBC) [Entitic mass] 24.5 pg Low 27.0-32.0 [facility] Mean corpuscular hemoglobin concentration (MCHC) determinationOrdered By: Silviano Daley on 07-04-2024 MCHC (RBC) [Mass/Vol] 31.1 g/dL Low 32-36 [facility] Mean platelet volume determi nationOrdered By: Silviano Daley on 07-04-2024 Platelet mean volume (Bld) [Entitic vol] 9.9 fL 6.2-12.0 [facility] Monocyte percentageOrdered B y: Silviano Daley on 07-04-2024 Monocytes/100 WBC (Bld) 6.6 % 0-10 [facility] Neutrophil percentageOrdered By: Silviano Daley on 07-04-2024 Neutrophils/100 WBC (Bld) 65.0 % 47-70 [facility] Nucleated red blood cell per centageOrdered By: Silviano Daley on 07-04-2024 Nucleated RBC/100 WBC (Bld) [Ratio] 0 % 0-5 [facility] Credit Relationship Manager Office Visit Reporton 07-04-2024 Credit Relationship Manager Office Visit Report Normal [facility] Platelet countOrdered By: Pat Daley on 07-04-2024 Platelets (Bld) [#/Vol] 360 10*3/uL 150-450 [facility] RBC Auto (Bld) [#/Vol]Ordere d By: Silviano Daley on 07-04-2024 RBC (Bld) [#/Vol] 3.59 10*6/uL Low 4.2-5.4 [facility] White blood cell (WBC) count Ordered By: Silviano Daley on 07-04-2024 WBC (Bld) [#/Vol] 6.7 10*3/uL 4.4-11.0 [facility] ED MED ADMINISTRATION DETAIL on 07-01-2024 ED MED ADMINISTRATION DETAIL Director [employer] Medication Administration Record [address] [address] [id number] 06/29/2024 Patient: ANNE MARIE PETERSON Sex: Female : 1995 Age: 28y MEASUREMENTS: Wt: 113.4 kg, Ht/Jorje: 66.0 in, BMI: 40.35 ALLERGIES: NSAIDS (Non-Steroidal Anti-Inflammatory Drug) Medication Ordered Medication Administration Date/Time Pitocin IVPB 20 unit 03:50 05/08 Pitocin IVPB 20 unit started at 20 milliu/min diluted in Started diluted in lactated lactated ringers Solution IV 1000 mL over 1 hour(s) via Site# 1. 03:50 06/29/2024 ringers Solution IV Allergies verified and confirmed 5 rights. IV patency established. IV Karissa Zabala R.N. 1000 mL at 20 site checked: no pain, redness, or swelling. IV flushed thoroughly Stopped milliu/min (NOW x1) pre-medication administration. Information reviewed with patient 06:22 06/29/2024 including reason for taking this medication. Verbalizes yoseph Davidson. Completed per protocol. - 03:50 Karissa Zabala R.N. R.N. Not Scanned 06:22 06/29 Medication Discontinued: IV completed. Total amount infused: 1000 mL. IV patency established. IV site checked: no pain, redness, or swelling. IV flushed thoroughly post-medication administration. - 06:47 Babs Price R.N. Cytotec PO 200 06:45 06/29 Cytotec PO 200 mcg given. Allergies verified and Given mcg (NOW x1) confirmed 5 rights. Information reviewed with patient. - 06:46 06:45 06/29/2024 Chasity Davidson R.N. Scanned 1 of 1 Normal [facility] ED NURSES CLINICAL NOTEon ED NURSES CLINICAL NOTE Nurse Narrative Nurse Clinical Narrative [address] [address] [id number] 06/29/2024 03:15:00 Patient: ANNE MARIE PETERSON Sex: Female : 1995 Age: 28y Disposition: Discharge to Home Disposition Decision Time: 06:38 06/29/2024 Departure Time: 07:00 06/29/2024 TRIAGE Historian: (patient). Arrived (stretcher). Primary physician (Boogie peterson). Triage time: 03:17 06/29/2024. Acuity: LEVEL 3. Chief Complaint: ABDOMINAL CRAMPS and VAGINAL BLEEDING. Alert. No acute distress. (pt crying). This started just prior to arrival. ( miscarriage of 14 week old fetus). No vomiting, fever or swelling. SEPSIS SCREEN: NEGATIVE. SIRS criteria negative. No possible sources of infection. -- 03:47 06/29/24 EDT Karissa Zabala R.N. 03:44 06/29/24. BP: 140/84 (regular cuff) taken on left arm, while sitting. MAP: 103. HR: 108. RR: 20. Regular and unlabored. O2 saturation: 97% on room air. Temperature: 98.5 F (oral). Pain level now 0/10. -- 03:45 06/29/24 JORDONT Karissa Zabala R.N. Measurements: 03:46 06/29/24 Wt: 113.4 kg, Ht/Jorje: 66.0 in, BMI: 40.35 -- 03:46 06/29/24 JORDONT Karissa Zabala R.N. Medications: no known home medications -- 03:41 06/29/24 JORDONT Karissa Zabala R.N. 1 of 4 Nurse Narrative Allergies: NSAIDS (Non-Steroidal Anti-Inflammatory Drug) -- 03:41 06/29/24 JORDONT Karissa Zabala R.N. Problems: Atrial Fibrillation -- 03:42 06/29/24 JORDONT Karissa Zabala R.N. Surgeries: Gastric Bypass -- 03:42 06/29/24 KRYSTEN Zabala R.N. Hernia Repair -- 03:42 06/29/24 EDT Karissa Zabala R.N. Cholecystectomy -- 03:42 06/29/24 JORDONT Karissa Zabala R.N. History 03:17 06/29/24. SOCIAL HX: Never smoker. No alcohol use or drug use. The patient has not traveled outside the [place] Infectious disease exposure: No infectious disease exposure. ABUSE ASSESSMENT: The patient answered yes to the question(s) Do you feel safe in your home? and no to the question(s) Are you afraid to go home?. SELF HARM ASSESSMENT: Self harm assessment was performed. The patient answered no to the question(s) Have you recently felt down, depressed, or hopeless? and Do you have thoughts of harming or killing yourself?. FALL RISK ASSESSMENT: Fall risk assessment completed. No risk factors identified. -- 03:47 06/29/24 EDT Karissa Zabala R.N. 03:56 06/29/24. PAST MEDICAL HX: LNMP: and 14. Para 4. (miscarriage X 10). -- 03:56 06/29/24 EDT Karissa Zabala R.N. Interventions 03:17 06/29/24. Identification band and allergy band on patient. Advanced care plan discussed with patient. Patient does not have advanced directive. -- 03:47 06/29/24 EDT Karissa Zabala R.N. 2 of 4 Nurse Narrative PHYSICAL ASSESSMENT 03:45 06/29/24. To room via stretcher. ( 14 weeks , spontaneous delivery at home. Fetus and placenta delivered prior to arrival.). GENERAL / NEURO / PSYCH: Alert. Oriented X 4. Appears in no acute distress. HEENT: Mucous membranes are pink. RESPIRATORY: Respirations not labored. Breath sounds within normal limits. CVS: Normal heart rate and rhythm. Capillary refill less than 2 seconds. GI / : Post- exam: placenta has been expelled intact; uterus palpated- fundus firm, midline and palpated midway between symphysis pubis and umbilicus; moderate vaginal bleeding; perineal bleeding noted. Bowel sounds within normal limits. Vaginal bleeding present. EXTREMITIES: No lower extremity edema. SKIN: Skin is warm and dry. -- 04:32 06/29/24 JORDONT Babs Price R.N. NURSING PROGRESS NOTES 03:37 06/29/24. ( Bereavement nurse called, at bedside helping with fetus and mother.). -- 03:53 06/29/24 KRYSTEN Zabala R.N. 03:50 06/29/24. ( OB RN at bedside to help with bereavement care of fetus. Placenta disposed of properly by OB RN.). -- 04:46 06/29/24 KRYSTEN Price R.N. 03:50 06/29/24. Pitocin IVPB 20 unit started at 20 milliu/min diluted in lactated ringers Solution IV 1000 mL over 1 hour(s) via Site# 1. Allergies verified and confirmed 5 rights. IV patency established. IV site checked: no pain, redness, or swelling. IV flushed thoroughly pre-medication administration. Information reviewed with patient including reason for taking this medication. Verbalizes understanding. Completed per protocol. -- 03:50 06/29/24 EDT Karissa Zabala R.N. 03:53 06/29/24. ( OB nurse was down to assess fundus and bleeding.). -- 03:53 06/29/24 EDT Karissa Zabala R.N. 04:32 06/29/24. Patient transported to radiology by stretcher with radiology technologist. -- 04:32 06/29/24 EDT Babs Price R.N. 06:22 06/29/24. Pitocin IVPB: Medication Discontinued. IV completed. Total amount infused: 1000 mL. IV patency established. IV site checked: no pain, redness, or swelling. IV flushed thoroughly post-medication administration. -- 06:47 06/29/24 EDT Babs Price R.N. 06:45 06/29/24. Cytotec PO 200 mcg given. Allergie (more content not included)... Normal [facility] ED ORDER SHEET (CPOE ONLY)on 07-01-2024 ED ORDER SHEET (CPOE ONLY) Order Sheet Order Sheet [address] [place] [address] [id number] 06/29/2024 Patient: ANNE MARIE PETERSON Sex: Female : 1995 Age: 28y MEASUREMENTS: Wt: 113.4 kg, Ht/Jorje: 66.0 in, BMI: 40.35 ALLERGIES: NSAIDS (Non-Steroidal Anti-Inflammatory Drug) MEDICATION/IV/DRIP/FLUI D ORDERS Order Description Priority Entered Acknowledged Completed Pitocin IVPB20 unit diluted in 03:27 06/29/2024 03:39 03:50 lactated ringers Solution IV 1000 Jaswinder Sena, 06/29/2024 06/29/2024 mL at 20 milliu/min (NOW x1) D.OChasity Fajardo R.N. Cytotec PO200 mcg (NOW x1) 06:35 06/29/2024 06:38 06:46 Jaswinder Sena, 06/29/2024 06/29/2024 Chasity Aguiar R.N. Reason for ordering with alerts: Benefits outweigh risks --06:35 06/29/2024 Jaswinder Sena D.O. LAB ORDERS Order Description Priority Entered Acknowledged Collected Completed CBC w Diff Stat Stat 03:24 06/29/2024 03:39 06/29/2024 03:39 06/29/2024 Karissa Elena R.N. Anne Rutt, R.N. D.O. 1 of 2 Order Sheet CMP Stat Stat 03:24 06/29/2024 03:39 06/29/2024 03:39 06/29/2024 Karissa Elena R.N. Anne Rutt, R.N. D.OMirtha DIAGNOSTIC STUDY ORDERS Order Description Priority Entered Acknowledged Completed US OB Initial >14WK 03:24 06/29/2024 Cancelled: Other Jaswinder Sena, 04:24 EDT Jaswinder Sena D.O. D.O. Order Comments: 03:23 06/29/2024: Status: Not . Jaswinder Sena D.O. Reason for Study: Pain US Pelvic Stat Stat 04:24 06/29/2024 04:35 04:35 Jaswinder Sena 06/29/2024 06/29/2024 Chasity Coker, RMirthaNMirtha Reason for Study: Abnormal Bleeding STAFF ORDERS Order Description Priority Entered Acknowledged Collected Completed IV Saline Lock 03:24 06/29/2024 03:39 06/29/2024 03:39 06/29/2024 Karissa Elena R.N. Anne Rutt, R.N. D.OMirtha [Electronically signed by Jaswinder Sena D.O. (07/01/2024 11:38 EDT)] 2 of 2 Normal [facility] ED PHYSICIAN CLINICAL REPORT on 07-01-2024 ED PHYSICIAN CLINICAL REPORT Narrative Physician Clinical Narrative [address] [address] [id number] 06/29/2024 03:15:00 [id number] Sex[facility] Female : 1995 Age: 28y Disposition: Discharge to Home Disposition Decision Time: 06:38 06/29/2024 Departure Time: 07:00 06/29/2024 Measurements Wt: 113.4 kg, Ht/Jorje: 66.0 in, BMI: 40.35 Initial Vital Sign Measured Time BP MAP HR RR O2Sat ETCO2 Temp Pain GCS RTS 03:44 06/29/2024 140/84 103 108 20 97% RA 98.5 F 0 Time Seen: 03:17 06/29/2024. Arrived- By ambulance. Historian- patient. Independent historian- EMS personnel. HISTORY OF PRESENT ILLNESS Chief Complaint: VAGINAL BLEEDING and PASSING TISSUE. This started just prior to arrival patient is proximally 14 weeks . She has had chorionic hemorrhages which she has been to the emergency department several times for this which she has had ultrasound she was at the emergency department another hospital yesterday does this morning she had a gush of blood and noted to have a fetus she also passed the placenta she believes and presented to the emergency department. and still present. REVIEW OF SYSTEMS GI: No nausea. NEUROLOGICAL: No headache. EYES: No eye discomfort. RESPIRATORY: No cough. Status: Not . 1 of 9 Narrative PAST HISTORY See nurses notes. Atrial Fibrillation Surgeries: Cholecystectomy Gastric Bypass Hernia Repair Medications: no known home medications Allergies: NSAIDS (Non-Steroidal Anti-Inflammatory Drug) SOCIAL HISTORY Never smoker. No alcohol use. ADDITIONAL NOTES The nursing notes have been reviewed. PHYSICAL EXAM Appearance: Alert. Oriented X3. No acute distress. HEENT: Normal external inspection. ENT: Pharynx normal. Neck: Neck supple. CVS: Heart sounds normal. Respiratory: No respiratory distress. Breath sounds normal. Abdomen: Soft and nontender. Skin: Skin warm. Normal skin color. Normal skin turgor. Extremities: Extremities nontender. Neuro: Oriented X 3. Mood/affect normal. 2 of 9 Narrative LABS, X-RAYS, AND EKG Laboratory Tests: CBC + DIFF Final JESSICA: 06/29/2024 03:35:00 EDT MsgRcvd: 06/29/2024 04:00 EDT Lab Test Result Reference Status Received Comments 06/29/2024 04:00 CBC-COMPLETE CBC + DIFF Final EDT BLOOD COUNT 06/29/2024 04:00 WBC 8.6 x 10/UL 4.5 - 10.8 Final EDT 06/29/2024 04:00 RBC 4.20 x 10/UL 4.10 - 5.30 Final EDT 10.9 g/dl 06/29/2024 04:00 HEMOGLOBIN 12.0 - 16.0 Final Below low normal EDT 31.6 % 06/29/2024 04:00 HEMATOCRIT 34.0 - 46.0 Final Below low normal EDT 75 fl 06/29/2024 04:00 MCV 80 - 99 Final Below low normal EDT 26 pg 06/29/2024 04:00 MCH 27 - 33 Final Below low normal EDT 06/29/2024 04:00 MCHC 35 X10 3 32 - 36 Final EDT 16.5 % 06/29/2024 04:00 RDW/CV 12.0 - 15.6 Final Above high normal EDT 06/29/2024 04:00 PLATELET 256 x10/UL 150 - 450 Final EDT 3 of 9 Narrative Lab Test Result Reference Status Received Comments 06/29/2024 04:00 AUTOMATED MPV 9.2 fl 6.6 - 10.5 Final EDT DIFFERENTIAL 77.9 % 06/29/2024 04:00 NEUT % 46.0 - 76.0 Final Above high normal EDT 14.6 % 06/29/2024 04:00 LYMPH % 20.0 - 45.0 Final Below low normal EDT 06/29/2024 04:00 MONOS % 6.7 % 0.0 - 10.0 Final EDT 06/29/2024 04:00 EO % 0.7 % 0.0 - 7.0 Final EDT 06/29/2024 04:00 BASO % 0.2 % 0.0 - 2.0 Final EDT 06/29/2024 04:00 Lymph # 1.25 x10/UL 0.80 - 2.80 Final EDT 06/29/2024 04:00 Neut # 6.67 x10/UL 1.50 - 7.10 Final EDT 06/29/2024 04:00 [place] # 0.57 x10/UL 0.20 - 1.00 Final EDT 06/29/2024 04:00 EO # 0.06 x10/UL 0.00 - 0.50 Final EDT 06/29/2024 04:00 Baso # 0.02 x10/UL 0.00 - 0.10 Final EDT 06/29/2024 04:00 MANUAL DIFF N/A New Order EDT 06/29/2024 04:00 MORPHOLOGY N/A New Order EDT 4 of 9 Narrative CMP with eGFR Final JESSICA: 06/29/2024 03:35:00 EDT MsgRcvd: 06/29/2024 04:24 EDT Lab Test Result Reference Status Received Comments COMPREHENSIVE 06/29/2024 CMP with eGFR Final METABOLIC 04:24 EDT PANEL 06/29/2024 SODIUM 141 mmol/l 136 - 145 Final 04:24 EDT 3.4 mmol/L 06/29/2024 POTASSIUM 3.5 - 5.1 Final Below low normal 04:24 EDT 06/29/2024 CHLORIDE 106 mmol/L 98 - 107 Final 04:24 EDT 06/29/2024 CO2 24.0 mmol/L 21.0 - 32.0 Final 04:24 EDT 06/29/2024 GLUCOSE 95 mg/dl 74 - 106 Final 04:24 EDT 6 mg/dl 06/29/2024 BUN 7 - 18 Final Below low normal 04:24 EDT 06/29/2024 CREATININE 0.65 mg/dl 0.55 - 1.02 Final 04:24 EDT 06/29/2024 AST/SGOT 27 U/L 13 - 39 Final 04:24 EDT 06/29/2024 ALK PHOS 73 U/L 46 - 116 Final 04:24 EDT 06/29/2024 CALCIUM 9.0 mg/dl 8.5 - 10.1 Final 04:24 EDT TOTAL 06/29/2024 7.1 g/dl 6.4 - 8.2 Final (more content not included)... Normal [facility] ED [facility] BILLon 07-01-2024 ED [facility] [address] [place] [address] [id number] 06/29/2024 Patient: ANNE MARIE PETERSON Sex: Female : 1995 Age: 28y Item Facility Professional Category Description Code Code Quantity Fee Total Drugs Normal Saline 860097 1 $0.00 $0.00 1000cc (094680) Nurse/E/M EMERGENCY 787568 1 $0.00 $0.00 DEPARTMENT VISIT HIGH/URGENT SEVERITY (86931-89) Nurse/IV/IM/Infusions Drip/IVPB 029140 2 $0.00 $0.00 additional hour (25840) Nurse/IV/IM/Infusions Drip/IVPB initial 198994 1 $0.00 $0.00 (85432) Grand Total $0.00 Providers Jaswinder Sena D.O. 1 of 2 Superbill Chief Complaint VAGINAL BLEEDING and PASSING TISSUE. Principal Diagnosis Complete spontaneous (miscarriage). ICD-10 Codes O03.9: Complete or unspecified spontaneous without complication 2 of 2 Normal [facility] ED VISIT SUMMARYon ED VISIT SUMMARY Visit Overview Visit Overview [address] [place] [address] [id number] 06/29/2024 Patient: ANNE MARIE PETERSON Sex: Female : 1995 Age: 28y 07/01/2024 11:38 AM EDT ED Arrival:03:15 06/29/2024 EDT Status:not Recent Travel: Language:eng Adv Directive: Isolation Status: Ethnicity:N Fall Risk: Infectious Disease Exposure: Measurements:5'6 / 167.6 Self-Harm Status: Sepsis Screen: cm 250.0 lb / 113.4 kg Chief Complaint: ALLERGIES NSAIDS (Non-Steroidal Anti-Inflammatory Drug) HOME MEDICATIONS None PAST MEDICAL HISTORY / PROBLEMS Atrial Fibrillation See nurses notes PAST SURGICAL HISTORY 1 of 3 Visit Overview Cholecystectomy Gastric Bypass Hernia Repair SOCIAL HISTORY ED COURSE MEDICATIONS GIVEN IN EMERGENCY DEPARTMENT Pitocin IVPB 20 unit diluted in lactated ringers Solution IV 1000 mL 20 milliu/min over 1 03:50 06/29/24 hour(s) 06:45 06/29/24 Cytotec PO 200 mcg IV SITE INFORMATION INTAKE OUTPUT REASSESMENT (most recent) VITAL SIGNS First Vitals Last Vitals Temp 03:44 06/29/24 98.5 F Temp 06:53 06/29/24 BP 03:44 06/29/24 140/84 BP 06:53 06/29/24 118/70 HR 03:44 06/29/24 108 HR 06:53 06/29/24 81 RR 03:44 06/29/24 20 RR 06:53 06/29/24 O2 Sat 03:44 06/29/24 97% RA O2 Sat 06:53 06/29/24 Pain 03:44 06/29/24 0 Pain 06:53 06/29/24 ETCO2 03:44 06/29/24 ETCO2 06:53 06/29/24 GCS 03:44 06/29/24 GCS 06:53 06/29/24 RTS 03:44 06/29/24 RTS 06:53 06/29/24 PROCEDURES NURSING INTERVENTIONS LABS / STUDIES LABS / STUDIES ORDERED 2 of 3 Visit Overview CBC w Diff CMP US Pelvic CLINICAL IMPRESSION COMPLETE SPONTANEOUS (MISCARRIAGE) 3 of 3 Normal [facility] ED VITALS FLOW SHEETon 07-01 ED VITALS FLOW SHEET Vitals Vital Sign Flow Sheet [address] [address] [id number] 06/29/2024 Patient: ANNE MARIE PETERSON Sex: Female : 1995 Age: 28y Measurements Wt: 113.4 kg, Ht/Jorje: 66.0 in, BMI: 40.35 Measured Time BP MAP HR RR O2Sat ETCO2 Temp Pain GCS RTS 06:53 06/29/2024 118/70 86 81 06:52 06/29/2024 84 97% 06:47 06/29/2024 87 99% 06:42 06/29/2024 81 99% 06:37 06/29/2024 82 99% 06:32 06/29/2024 89 99% 06:27 06/29/2024 79 99% 06:22 06/29/2024 82 100% 06:22 06/29/2024 128/80 88 78 06:18 06/29/2024 114/69 78 81 06:17 06/29/2024 80 97% 06:07 06/29/2024 83 100% 06:02 06/29/2024 89 100% 05:57 06/29/2024 86 100% 05:52 06/29/2024 84 100% 1 of 3 Vitals Measured Time BP MAP HR RR O2Sat ETCO2 Temp Pain GCS RTS 05:52 06/29/2024 110/76 83 81 05:47 06/29/2024 83 99% 05:42 06/29/2024 89 96% 05:37 06/29/2024 88 99% 05:32 06/29/2024 82 99% 05:27 06/29/2024 82 100% 05:22 06/29/2024 102/73 81 88 05:22 06/29/2024 98 99% 05:17 06/29/2024 95 99% 05:12 06/29/2024 84 100% 05:07 06/29/2024 81 99% 05:02 06/29/2024 84 98% 04:57 06/29/2024 87 99% 04:52 06/29/2024 89 99% 04:52 06/29/2024 103/73 81 82 04:47 06/29/2024 88 98% 04:46 06/29/2024 110/69 81 87 04:22 06/29/2024 84 97% 04:22 06/29/2024 108/72 81 80 04:17 06/29/2024 87 99% 04:12 06/29/2024 89 95% 04:07 06/29/2024 95 98% 04:02 06/29/2024 92 98% 03:57 06/29/2024 102 99% 03:53 06/29/2024 108/75 86 92 2 of 3 Vitals Measured Time BP MAP HR RR O2Sat ETCO2 Temp Pain GCS RTS 03:52 06/29/2024 87 98% 03:44 06/29/2024 140/84 103 108 20 97% RA 98.5 F 0 3 of 3 Normal [facility] CBC + DIFFon 06-29-2024 Baso # 0.02 x10EE3/UL Normal 0.00 - 0.10 [facility] Comment on above: Performed By: #### 2 94118 #### [facility],[address] [place] [address] Basophils/100 WBC (Bld) 0.2 % Normal 0.0 - 2.0 [facility] Comment on above: Performed By: #### 2 64789 #### [facility],[address] [place] [address] CBC + DIFF Normal [facility] Comment on above: Result Comment: CBC- COMPLETE BLOOD COUNT Performed By: #### 2 01639 #### [facility],[address] [place] [address] EO # 0.06 x10EE3/UL Normal 0.00 - 0.50 [facility] Comment on above: Performed By: #### 2 74167 #### [place] [address] Eosinophils/100 WBC (Bld) 0.7 % Normal 0.0 - 7.0 [facility] Comment on above: Performed By: #### 2 56568 #### [place] [address] Erythrocyte distribution width (RBC) [Ratio] 16.5 % High 12.0 - 15.6 [facility] Comment on above: Performed By: #### 2 79194 #### [place] [address] Hematocrit (Bld) [Volume fraction] 31.6 % Low 34.0 - 46.0 [facility] Comment on above: Performed By: #### 2 89660 #### [facility],[address] [place] [address] Hemoglobin (Bld) [Mass/Vol] 10.9 g/dL Low 12.0 - 16.0 [facility] Comment on above: Performed By: #### 2 14358 #### [place] [address] Lymph # 1.25 x10EE3/UL Normal 0.80 - 2.80 [facility] Comment on above: Performed By: #### 2 56606 #### [address],[place] [address] Lymphocytes/100 WBC (Bld) 14.6 % Low 20.0 - 45.0 [facility] Comment on above: Performed By: #### 2 07064 #### [facility],[address] [place] [address] MANUAL DIFF N/A Normal [facility] Comment on above: Performed By: #### 2 60100 #### [facility],[address] [place] [address] MCH (RBC) [Entitic mass] 26 pg Low 27 - 33 [facility] Comment on above: Performed By: #### 2 83709 #### [facility],[address] [place] [address] MCHC 35 X10 3 Normal 32 - 36 [facility] Comment on above: Performed By: #### 2 13181 #### [facility],[address] [place] [address] MCV (RBC) [Entitic vol] 75 fL Low 80 - 99 [facility] Comment on above: Performed By: #### 2 26565 #### [facility],[address] [place] [address] [place] # 0.57 x10EE3/UL Normal 0.20 - 1.00 [facility] Comment on above: Performed By: #### 2 54157 #### [facility],[address] [place] [address] MONOS % 6.7 % Normal 0.0 - 10.0 [facility] Comment on above: Performed By: #### 2 76991 #### [place] [id number] Morphology Girish (Bld) [Interp] N/A Normal [facility] Comment on above: Performed By: #### 2 85866 #### [facility],[address],[place] [address] Neut # 6.67 x10EE3/UL Normal 1.50 - 7.10 [facility] Comment on above: Performed By: #### 2 86185 #### [facility],[address] [place] [address] Neutrophils/100 WBC (Bld) 77.9 % High 46.0 - 76.0 [facility] Comment on above: Performed By: #### 2 10689 #### [facility],[address] [place], [place] [id number] PLATELET 256 x10EE3/UL Normal 150 - 450 [facility] Comment on above: Performed By: #### 2 16648 #### [facility],[address] [place] [address] Platelet mean volume (Bld) [Entitic vol] 9.2 fL Normal 6.6 - 10.5 [facility] Comment on above: Result Comment: AUTO MATED DIFFERENTIAL Performed By: #### 2 03643 #### [facility],[address] [place], [place] [id number] RBC 4.20 x 10EE6/UL Normal 4.10 - 5.30 [facility] Comment on above: Performed By: #### 2 81833 #### [facility],[address] [place] [address] WBC 8.6 x 10EE3/UL Normal 4.5 - 10.8 [facility] Comment on above: Performed By: #### 2 86587 #### [facility],[address] [place] [address] CMP with eGFRon 06-29-2024 AGE 28 years Normal [facility] Comment on above: Performed By: #### 2 91054 #### [facility],[address] [place] [address] Albumin [Mass/Vol] 3.1 g/dL Low 3.4 - 5.0 [facility] Comment on above: Performed By: #### 2 00328 #### [facility],[address] [place] [address] Albumin/Globulin [Mass ratio] 0.8 {ratio} Low 0.9 - 1.6 [facility] Comment on above: Performed By: #### 2 18529 #### [facility],[address] [place] [address]32 ALK PHOS 73 U/L Normal 46 - 116 [facility] Comment on above: Performed By: #### 2 28480 #### [facility],[address] [place] [address]6976 ALT [Catalytic activity/Vol] 40 U/L Normal 16 - 63 [facility] Comment on above: Performed By: #### 2 52964 #### [facility],[address] [place] [address] Anion gap [Moles/Vol] 14 mmol/L Normal 10 - 20 [facility] Comment on above: Performed By: #### 2 36317 #### [facility],[address] [place] [address]0520 AST [Catalytic activity/Vol] 27 U/L Normal 13 - 39 [facility] Comment on above: Performed By: #### 2 65494 #### [facility],[address] [place] [address] B/C RATIO 9 ratio Normal 0 - 30 [facility] Comment on above: Performed By: #### 2 68774 #### [facility],[address] [place] [address]7768 Bilirubin [Mass/Vol] 0.4 mg/dL Normal 0.2 - 1.0 [facility] Comment on above: Performed By: #### 2 19624 #### [facility],[address] [place] [address] 10100 Calcium [Mass/Vol] 9.0 mg/dL Normal 8.5 - 10.1 [facility] Comment on above: Performed By: #### 2 64312 #### [facility],[address] [place] [address] Chloride [Moles/Vol] 106 mmol/L Normal 98 - 107 [facility] Comment on above: Performed By: #### 2 90597 #### [facility],[address] [place], [place] [address] CMP with eGFR Normal [facility] Comment on above: Result Comment: COMP REHENSIVE METABOLIC PANEL Performed By: #### 2 60808 #### [facility],[address] [place] [address] CO2 [Moles/Vol] 24.0 mmol/L Normal 21.0 - 32.0 [facility] Comment on above: Performed By: #### 2 97709 #### [facility],[address] [place] [address] Creatinine [Mass/Vol] 0.65 mg/dL Normal 0.55 - 1.02 [facility] Comment on above: Performed By: #### 2 36519 #### [facility],[address] [place] [address] GFR/1.73 sq M.predicted among non-blacks MDRD (S/P/Bld) [Vol rate/Area] mL/min/{1.73_m2} Normal 60 - 999 [facility] Comment on above: Performed By: #### 2 67055 #### [facility],[address] [place] [address] Result Comment: ACCO RDING TO THE NATIONAL KIDNEY DISEASE EDUCATION PROGRAM(NKDE), A NORMAL eGFR IS A VALUE GREATER THAN OR EQUAL TO 60 ML/MIN/1.73 SQ METERS. CHRONIC KIDNEY DISEASE: <60mL/MIN/1.73 SQ METERS KIDNEY FAILURE: <15mL/MIN/1.73 SQ METERS THIS TEST SHOULD ONLY BE USED FOR PATIENTS 18 YEARS OF AGE AND OLDER. Globulin (S) [Mass/Vol] 4.0 g/dL High 1.5 - 3.8 [facility] Comment on above: Performed By: #### 2 79567 #### [facility],[address] [place] [address]881 Glucose [Mass/Vol] 95 mg/dL Normal 74 - 106 [facility] Comment on above: Performed By: #### 2 56600 #### [facility],[address] [place] [address] 30821 Potassium [Moles/Vol] 3.4 mmol/L Low 3.5 - 5.1 [facility] Comment on above: Performed By: #### 2 73229 #### [facility],[address] [place] [address] 60698 Protein [Mass/Vol] 7.1 g/dL Normal 6.4 - 8.2 [facility] Comment on above: Performed By: #### 2 41214 #### [facility],[address] [place] [address] 98217 Sodium [Moles/Vol] 141 mmol/L Normal 136 - 145 [facility] Comment on above: Performed By: #### 2 71752 #### [facility],[address] [place] [address] 15261 Urea nitrogen [Mass/Vol] 6 mg/dL Low 7 - 18 [facility] Comment on above: Performed By: #### 2 39695 #### [facility],[address] [place] [address] 11854 OB Triage Progress Noteon OB Triage Progress Note Normal [facility] PELVICon 06-29-2024 PELVIC [place] [address] Patient: ANNE MARIE PETERSON Phone#: : 1995 Age: 28 Gender: F Pt. Type: ER Account: [id number] Location: [facility] Ordering: JASWINDER SENA Exam Date: 06/29/2024/4:22 Family Phys: XENIA LANE Charge Code: 987319 Physician: [place] Order #: [id number] Dose#: PROCEDURE: PELVIC ULTRASOUND, TRANSABDOMINAL COMPARISON: None. INDICATIONS: Vaginal bleeding TECHNIQUE: Pelvic ultrasound was performed in the usual manner. FINDINGS: UTERUS: Size is 14.4 cm with unremarkable appearance. Endometrial thickness is endometrium measures 2.4 cm in thickness. No flow within the endometrium. ADNEXAE: Normal bilateral appearance with no significant masses. Each ovary is normal in size for a patient of this age. Right ovary measures 2.9 x 1.8 x 3.5 cm. Left ovary measures 3.0 x 1.9 x 2.1 cm. CUL-DE-SAC: Normal. No fluid or mass. OTHER: Negative. CONCLUSION: 1. Abnormally thickened endometrium. This may represent clot versus avascular retained products of conception. This report was communicated by telephone to Dr. Larios at the dictation time shown below. Dictated by: Jackeline Anderson MD on 06/29/2024 at 8:44 Approved by: Jackeline Anderson MD on 06/29/2024 at 8:51 Normal [facility] Absolute lymphocyte countOrd ered By: Silviano Daley on 06-28-2024 Lymphocytes Auto (Unsp spec) [#/Vol] 1.00 10*3/uL 0.83-4.51 [facility] Absolute neutrophil countOrd ered By: Silviano Daley on 06-28-2024 Neutrophils (Bld) [#/Vol] 3.8 10*3/uL 2.0-7.7 [facility] Automated lymphocyte count a s percentage of total leukocytesOrdered By: Silviano Daley on 06-28-2024 Lymphocytes/100 WBC Auto (Unsp spec) 19.2 % 19-41 [facility] Basic Metabolic Profile (BMP )on 06-28-2024 BUN/CRE 12.2 RATIO Normal 10-20 [facility] Comment on above: Performed By: #### L 500.2500, L300.3900, L300.4310, L100.0100, L700.8000 ####[facility] [address] [place], [address] Calcium [Mass/Vol] 8.3 mg/dL Normal 7.6-11.0 [facility] Comment on above: Performed By: #### L 500.2500, L300.3900, L300.4310, L100.0100, L700.8000 ####[facility] [address] [place], [address] Chloride [Moles/Vol] 105 mmol/L Normal 98-108 [facility] Comment on above: Performed By: #### L 500.2500, L300.3900, L300.4310, L100.0100, L700.8000 ####[facility] [address] [place], [address] CO2 [Moles/Vol] 22.0 mmol/L Normal 21.0-32.0 [facility] Comment on above: Performed By: #### L 500.2500, L300.3900, L300.4310, L100.0100, L700.8000 ####[facility] [address] [place], [address] Creatinine [Mass/Vol] 0.58 mg/dL Low 0.70-1.20 [facility] Comment on above: Performed By: #### L 500.2500, L300.3900, L300.4310, L100.0100, L700.8000 ####[facility] [address] [place], [address] ECRCL 186.50 ml/min Normal 50-250 [facility] Comment on above: Performed By: #### L 500.2500, L300.3900, L300.4310, L100.0100, L700.8000 ####[facility] [address] [place], [address] GAP 8 Normal 5-15 [facility] Comment on above: Performed By: #### L 500.2500, L300.3900, L300.4310, L100.0100, L700.8000 ####[facility] [address] [place], [address] GFR/1.73 sq M.predicted among non-blacks MDRD (S/P/Bld) [Vol rate/Area] 126 mL/min/{1.73_m2} Normal >60 [facility] Comment on above: Result Comment: mL/m in/1.73m2 CKD-EPI Creatinine Equation (2020) Performed By: #### L 500.2500, L300.3900, L300.4310, L100.0100, L700.8000 ####[facility] [address] [place], [address] Glucose [Mass/Vol] 102 mg/dL High 70-99 [facility] Comment on above: Performed By: #### L 500.2500, L300.3900, L300.4310, L100.0100, L700.8000 ####[facility] [address] [place], [address] Potassium [Moles/Vol] 3.4 mmol/L Normal 3.3-5.1 [facility] Comment on above: Performed By: #### L 500.2500, L300.3900, L300.4310, L100.0100, L700.8000 ####[facility] [address] [place], [address] Sodium [Moles/Vol] 134 mmol/L Normal 133-145 [facility] Comment on above: Performed By: #### L 500.2500, L300.3900, L300.4310, L100.0100, L700.8000 ####[facility] [address] [place], [address] Urea nitrogen [Mass/Vol] 7 mg/dL Normal 4-19 [facility] Comment on above: Performed By: #### L 500.2500, L300.3900, L300.4310, L100.0100, L700.8000 ####[facility] [address] [place], [address] Basophil percentageOrdered B y: Silviano Daley on 06-28-2024 Basophils/100 WBC (Bld) 0.2 % 0-1 [facility] CBC W/Diff, Automatedon Absolute Lymph 1.00 X10 3/uL Normal 0.83-4.51 [facility] Comment on above: Performed By: #### L 100.0100 ####[facility] [address] [place], [address] Absolute Neut 3.8 X10 3/uL Normal 2.0-7.7 [facility] Comment on above: Performed By: #### L 100.0100 ####[facility] [address] [place], [address] Basophils/100 WBC (Bld) 0.2 % Normal 0-1 [facility] Comment on above: Performed By: #### L 100.0100 ####[facility] [address] [place], [address] Eosinophils/100 WBC (Bld) 0.4 % Normal 0-5 [facility] Comment on above: Performed By: #### L 100.0100 ####[facility] [address] [place], [address] Erythrocyte distribution width (RBC) [Ratio] 16.1 % High 11.6-14.6 [facility] Comment on above: Performed By: #### L 100.0100 ####[facility] [address] [place], [address] Hematocrit (Bld) [Volume fraction] 28.3 % Low 37-47 [facility] Comment on above: Performed By: #### L 100.0100 ####[facility] [address] [place], [address] Hemoglobin (Bld) [Mass/Vol] 9.3 g/dL Low 12.0-15.0 [facility] Comment on above: Performed By: #### L 100.0100 ####[facility] [address] [place], [address] IG% 0.400 Normal 0.0-0.9 [facility] Comment on above: Result Comment: IG% - Immature Granulocytes (promyelocytes, myelocytes andmetamyelocytes) > 1% indicates that a LEFT SHIFT is Present. Performed By: #### L 100.0100 ####[facility] [address] [place], [address] Lymphocytes/100 WBC (Bld) 19.2 % Normal 19-41 [facility] Comment on above: Performed By: #### L 100.0100 ####[facility] [address] [place], [address] MCH (RBC) [Entitic mass] 24.7 pg Low 27.0-32.0 [facility] Comment on above: Performed By: #### L 100.0100 ####[facility] [address] [place], [address] MCHC (RBC) [Mass/Vol] 32.9 g/dL Normal 32-36 [facility] Comment on above: Performed By: #### L 100.0100 ####[facility] [address] [place], [address] MCV (RBC) [Entitic vol] 75.3 fL Low 81-99 [facility] Comment on above: Performed By: #### L 100.0100 ####[facility] [address] [place], [address] Monocytes/100 WBC (Bld) 6.2 % Normal 0-10 [facility] Comment on above: Performed By: #### L 100.0100 ####[facility] [address] [place], [address] Neutrophils/100 WBC (Bld) 73.6 % High 47-70 [facility] Comment on above: Performed By: #### L 100.0100 ####[facility] [address] [place], [address] Nucleated RBC (Bld) [#/Vol] 0 10*3/uL Normal 0-5 [facility] Comment on above: Performed By: #### L 100.0100 ####[facility] [address] [place], [address] Platelet mean volume (Bld) [Entitic vol] 10.6 fL Normal 6.2-12.0 [facility] Comment on above: Performed By: #### L 100.0100 ####[facility] [address] [place], [address] Platelets (Bld) [#/Vol] 212 10*3/uL Normal 150-450 [facility] Comment on above: Performed By: #### L 100.0100 ####[facility] [address] [place], [address] RBC (Bld) [#/Vol] 3.76 10*6/uL Low 4.2-5.4 [facility] Comment on above: Performed By: #### L 100.0100 ####[facility] [address] [place], [address] RDW SD 44.6 fl High 35.1-43.9 [facility] Comment on above: Performed By: #### L 100.0100 ####[facility] [address] [place], [address] WBC (Bld) [#/Vol] 5.2 10*3/uL Normal 4.4-11.0 [facility] Comment on above: Performed By: #### L 100.0100 ####[facility] [address] [place], [address] Absolute Lymph 0.63 X10 3/uL Low 0.83-4.51 [facility] Comment on above: Performed By: #### L 500.2500, L300.3900, L300.4310, L100.0100, L700.8000 ####[facility] [address] [place], [address] Absolute Neut 4.6 X10 3/uL Normal 2.0-7.7 [facility] Comment on above: Performed By: #### L 500.2500, L300.3900, L300.4310, L100.0100, L700.8000 ####[facility] [address] [place], [address] Basophils/100 WBC (Bld) 0.2 % Normal 0-1 [facility] Comment on above: Performed By: #### L 500.2500, L300.3900, L300.4310, L100.0100, L700.8000 ####[facility] [address] [place], [address] Eosinophils/100 WBC (Bld) 0.2 % Normal 0-5 [facility] Comment on above: Performed By: #### L 500.2500, L300.3900, L300.4310, L100.0100, L700.8000 ####[facility] [address] [place], [address] Erythrocyte distribution width (RBC) [Ratio] 15.9 % High 11.6-14.6 [facility] Comment on above: Performed By: #### L 500.2500, L300.3900, L300.4310, L100.0100, L700.8000 ####[facility] [address] [place], [address] Hematocrit (Bld) [Volume fraction] 30.2 % Low 37-47 [facility] Comment on above: Performed By: #### L 500.2500, L300.3900, L300.4310, L100.0100, L700.8000 ####[facility] [address] [place], [address] Hemoglobin (Bld) [Mass/Vol] 9.9 g/dL Low 12.0-15.0 [facility] Comment on above: Performed By: #### L 500.2500, L300.3900, L300.4310, L100.0100, L700.8000 ####[facility] [address] [place], [address] IG% 0.200 Normal 0.0-0.9 [facility] Comment on above: Result Comment: IG% - Immature Granulocytes (promyelocytes, myelocytes andmetamyelocytes) > 1% indicates that a LEFT SHIFT is Present. Performed By: #### L 500.2500, L300.3900, L300.4310, L100.0100, L700.8000 ####[facility] [address] [place], [address] Lymphocytes/100 WBC (Bld) 11.3 % Low 19-41 [facility] Comment on above: Performed By: #### L 500.2500, L300.3900, L300.4310, L100.0100, L700.8000 ####[facility] [address] [place], [address] MCH (RBC) [Entitic mass] 25.1 pg Low 27.0-32.0 [facility] Comment on above: Performed By: #### L 500.2500, L300.3900, L300.4310, L100.0100, L700.8000 ####[facility] [address] [place], [address] MCHC (RBC) [Mass/Vol] 32.8 g/dL Normal 32-36 [facility] Comment on above: Performed By: #### L 500.2500, L300.3900, L300.4310, L100.0100, L700.8000 ####[facility] [address] [place], [address] MCV (RBC) [Entitic vol] 76.6 fL Low 81-99 [facility] Comment on above: Performed By: #### L 500.2500, L300.3900, L300.4310, L100.0100, L700.8000 ####[facility] [address] [place], [address] Monocytes/100 WBC (Bld) 5.0 % Normal 0-10 [facility] Comment on above: Performed By: #### L 500.2500, L300.3900, L300.4310, L100.0100, L700.8000 ####[facility] [address] [place], [address] Neutrophils/100 WBC (Bld) 83.1 % High 47-70 [facility] Comment on above: Performed By: #### L 500.2500, L300.3900, L300.4310, L100.0100, L700.8000 ####[facility] [address] [place], [address] Nucleated RBC (Bld) [#/Vol] 0 10*3/uL Normal 0-5 [facility] Comment on above: Performed By: #### L 500.2500, L300.3900, L300.4310, L100.0100, L700.8000 ####[facility] [address] [place], [address] Platelet mean volume (Bld) [Entitic vol] 10.5 fL Normal 6.2-12.0 [facility] Comment on above: Performed By: #### L 500.2500, L300.3900, L300.4310, L100.0100, L700.8000 ####[facility] [address] [place], [address] Platelets (Bld) [#/Vol] 203 10*3/uL Normal 150-450 [facility] Comment on above: Performed By: #### L 500.2500, L300.3900, L300.4310, L100.0100, L700.8000 ####[facility] [address] [place], [address] RBC (Bld) [#/Vol] 3.94 10*6/uL Low 4.2-5.4 [facility] Comment on above: Performed By: #### L 500.2500, L300.3900, L300.4310, L100.0100, L700.8000 ####[facility] [address] [place], [address] RDW SD 43.6 fl Normal 35.1-43.9 [facility] Comment on above: Performed By: #### L 500.2500, L300.3900, L300.4310, L100.0100, L700.8000 ####[facility] [address] [place], [address] WBC (Bld) [#/Vol] 5.6 10*3/uL Normal 4.4-11.0 [facility] Comment on above: Performed By: #### L 500.2500, L300.3900, L300.4310, L100.0100, L700.8000 ####[facility] [address] [place], [address] Emergency Department Summary on 06-28-2024 Emergency Department Summary Normal [facility] Eosinophil percentageOrdered By: Silviano Daley on 06-28-2024 Eosinophils/100 WBC (Bld) 0.4 % 0-5 [facility] Erythrocyte distribution wid th ratioOrdered By: Silviano Daley on 06-28-2024 Erythrocyte distribution width (RBC) [Ratio] 16.1 % High 11.6-14.6 [facility] Erythrocyte distribution wid th standard deviationOrdered By: Silviano Daley on 06-28-2024 Erythrocyte distribution width (RBC) [Ratio] 44.6 fl High 35.1-43.9 [facility] Hematocrit Auto (Bld) [Volum e fraction]Ordered By: Silviano Daley on 06-28-2024 Hematocrit (Bld) [Volume fraction] 28.3 % Low 37-47 [facility] Hemoglobin measurementOrdere d By: Silviano Daley on 06-28-2024 Hemoglobin (Bld) [Mass/Vol] 9.3 g/dL Low 12.0-15.0 [facility] Immature granulocytes/100 WB C Auto (Bld)Ordered By: Silviano Daley on 06-28-2024 Immature granulocytes/100 WBC (Bld) 0.400 % 0.0-0.9 [facility] Comment on above: IG% - Immature Granu locytes (promyelocytes, myelocytes and metamyelocytes) > 1% indicates that a LEFT SHIFT is Present. MCV (mean corpuscular volume ) determinationOrdered By: Silviano Daley on 06-28-2024 MCV (RBC) [Entitic vol] 75.3 fL Low 81-99 [facility] Mean corpuscular hemoglobin (MCH) determinationOrdered By: Silviano Daley on 06-28-2024 MCH (RBC) [Entitic mass] 24.7 pg Low 27.0-32.0 [facility] Mean corpuscular hemoglobin concentration (MCHC) determinationOrdered By: Silviano Daley on 06-28-2024 MCHC (RBC) [Mass/Vol] 32.9 g/dL 32-36 [facility] Mean platelet volume determi nationOrdered By: Silviano Daley on 06-28-2024 Platelet mean volume (Bld) [Entitic vol] 10.6 fL 6.2-12.0 [facility] Monocyte percentageOrdered B y: Silviano Daley on 06-28-2024 Monocytes/100 WBC (Bld) 6.2 % 0-10 [facility] Neutrophil percentageOrdered By: Silviano Daley on 06-28-2024 Neutrophils/100 WBC (Bld) 73.6 % High 47-70 [facility] Nucleated red blood cell per centageOrdered By: Silviano Daley on 06-28-2024 Nucleated RBC/100 WBC (Bld) [Ratio] 0 % 0-5 [facility] Partial Thromboplast Timeon 06-28-2024 aPTT Coag (Bld) [Time] 30.9 s Normal 24.1-36.2 [facility] Comment on above: Performed By: #### L 500.2500, L300.3900, L300.4310, L100.0100, L700.8000 ####[facility] [address] [place], [address] Platelet countOrdered By: Pat Daley on 06-28-2024 Platelets (Bld) [#/Vol] 212 10*3/uL 150-450 [facility] Prothrombin Time w/INRon INR Coag (PPP) [Relative time] 1.1 {INR} Normal [facility] Comment on above: Performed By: #### L 500.2500, L300.3900, L300.4310, L100.0100, L700.8000 ####[facility] [address] [place], [address] PT Coag (PPP) [Time] 14.0 s Normal 11.7-14.9 [facility] Comment on above: Performed By: #### L 500.2500, L300.3900, L300.4310, L100.0100, L700.8000 ####[facility] [address] [place], [address] RBC Auto (Bld) [#/Vol]Ordere d By: Silviano Daley on 06-28-2024 RBC (Bld) [#/Vol] 3.76 10*6/uL Low 4.2-5.4 [facility] Transvaginal w/Preg USon Transvaginal w/Preg US Normal [facility] Type AND Screenon 06-28-2024 Ab SCREEN GEL Negative Normal [facility] Comment on above: Order Comment: Has p t arrived? Ybleeding Performed By: #### B TS ####[facility] [address] [place], [place], [id number] ABO and Rh group Nom (Bld) Blood group B Rh(D) positive Normal [facility] Comment on above: Order Comment: Has p t arrived? Ybleeding Performed By: #### B TS ####[facility] [address] [place], [address] White blood cell (WBC) count Ordered By: Silviano Daley on 06-28-2024 WBC (Bld) [#/Vol] 5.2 10*3/uL 4.4-11.0 [facility] hCG Titer Quant., Serumon HCG QUANT. 52729 mIU/mL High <9 non-preg [facility] Comment on above: Result Comment: Gest ational Age0.2-1 Week: 5-50 mIU/mL1-2 Weeks: 50-500 mIU/mL2-3 Weeks: 100-5000 mIU/mL3-4 Weeks: 500-10,000 mIU/mL4-5 Weeks:1000-50,000 mIU/mL5-6 Weeks: 10,000-100,000 mIU/mL6-8 Weeks: 15,000-200,000 mIU/mL2-3 Months:10,000-100,000 mIU/mL Performed By: #### L 500.2500, L300.3900, L300.4310, L100.0100, L700.8000 ####[facility] [address] [place], [place], [phone] Absolute lymphocyte countOrd ered By: Pancho Gagnon on 06-27-2024 Lymphocytes Auto (Unsp spec) [#/Vol] 0.63 10*3/uL Low 0.83-4.51 [facility] Absolute neutrophil countOrd ered By: Pancho Gagnon on 06-27-2024 Neutrophils (Bld) [#/Vol] 4.6 10*3/uL 2.0-7.7 [facility] Activated partial thrombopla stin time (aPTT) in platelet poor plasma by coagulation aOrdered By: Pancho Gagnon on 06-27-2024 aPTT Coag (PPP) [Time] 30.9 s 24.1-36.2 [facility] Anion gap in Serum or Plasma Ordered By: Pancho Gagnon on 06-27-2024 Anion gap [Moles/Vol] 8 mmol/L 5-15 [facility] Automated lymphocyte count a s percentage of total leukocytesOrdered By: Pancho Gagnon on 06-27-2024 Lymphocytes/100 WBC Auto (Unsp spec) 11.3 % Low 19-41 [facility] BUN/creatinine ratioOrdered By: Pancho Gagnon on 06-27-2024 Urea nitrogen/Creatinine [Mass ratio] 12.2 mg/mg 10-20 [facility] Basophil percentageOrdered B y: Pancho Gagnon on 06-27-2024 Basophils/100 WBC (Bld) 0.2 % 0-1 [facility] Carbon dioxide, total [Moles /volume] in Central venous bloodOrdered By: Pancho Gagnon on 06-27-2024 CO2 [Moles/Vol] 22.0 mmol/L 21.0-32.0 [facility] Chloride assayOrdered By: Sylvie Gagnon on 06-27-2024 Chloride [Moles/Vol] 105 mmol/L 98-108 [facility] Eosinophil percentageOrdered By: Pancho Gagnon on 06-27-2024 Eosinophils/100 WBC (Bld) 0.2 % 0-5 [facility] Erythrocyte distribution wid th (RBC) [Ratio]Ordered By: Pancho Gagnon on 06-27-2024 Erythrocyte distribution width (RBC) [Entitic vol] 43.6 fL 35.1-43.9 [facility] Erythrocyte distribution wid th ratioOrdered By: Pancho Gagnon on 06-27-2024 Erythrocyte distribution width (RBC) [Ratio] 15.9 % High 11.6-14.6 [facility] Erythrocyte distribution wid th standard deviationOrdered By: Pancho Gagnon on 06-27-2024 Erythrocyte distribution width (RBC) [Ratio] 43.6 fl 35.1-43.9 [facility] Estimation of creatinine scar aranceOrdered By: Pancho Gagnon on 06-27-2024 Estimated Creatinine Clearance Calc 186.50 ml/min 50-250 [facility] GFR/1.73 sq M.predicted miryam g non-blacks MDRD (S/P/Bld) [Vol rate/Area]Ordered By: Pancho Gagnon on 06-27-2024 Estimated GFR (MDRD) Non-Af Amer 126 >60 [facility] Comment on above: mL/min/1.73m2 CKD-EP I Creatinine Equation (2020) Glomerular filtration rate ( GFR) estimation/1.73 sq m using serum, plasma, or whole bOrdered By: Pancho Gagnon on 06-27-2024 GFR/1.73 sq M.predicted among non-blacks MDRD (S/P/Bld) [Vol rate/Area] 126 mL/min/{1.73_m2} >60 [facility] Comment on above: mL/min/1.73m2 CKD-EP I Creatinine Equation (2020) HCG ( test) QlOrder ed By: Pancho Gagnon on 06-27-2024 Human Chorionic Gonadotropin, Quant 85955 mIU/mL High <9 [facility] Comment on above: Gestational Age0.2-1 Week: 5-50 mIU/mL1-2 Weeks: 50-500 mIU/mL2-3 Weeks: 100-5000 mIU/mL3-4 Weeks: 500-10,000 mIU/mL4-5 Weeks:1000-50,000 mIU/mL5-6 Weeks: 10,000-100,000 mIU/mL6-8 Weeks: 15,000-200,000 mIU/mL2-3 Months:10,000-100,000 mIU/mL Hematocrit Auto (Bld) [Volum e fraction]Ordered By: Pancho Gagnon on 06-27-2024 Hematocrit (Bld) [Volume fraction] 30.2 % Low 37-47 [facility] Hemoglobin measurementOrdere d By: Pancho Gagnon on 06-27-2024 Hemoglobin (Bld) [Mass/Vol] 9.9 g/dL Low 12.0-15.0 [facility] Immature granulocytes/100 WB C Auto (Bld)Ordered By: Pancho Gagnon on 06-27-2024 Immature granulocytes/100 WBC (Bld) 0.200 % 0.0-0.9 [facility] Comment on above: IG% - Immature Granu locytes (promyelocytes, myelocytes and metamyelocytes) > 1% indicates that a LEFT SHIFT is Present. International normalized rat io (INR) calculationOrdered By: Pancho Gagnon on 06-27-2024 INR Coag (Bld) [Relative time] 1.1 {INR} [facility] Lymphocytes Auto (Unsp spec) [#/Vol]Ordered By: Pancho Gagnon on 06-27-2024 Lymphocytes (Bld) [#/Vol] 0.63 10*3/uL Low 0.83-4.51 [facility] Lymphocytes/100 WBC Auto (Un sp spec)Ordered By: Pancho Gagnon on 06-27-2024 Lymphocytes/100 WBC (Bld) 11.3 % Low 19-41 [facility] MCV (mean corpuscular volume ) determinationOrdered By: Pancho Gagnon on 06-27-2024 MCV (RBC) [Entitic vol] 76.6 fL Low 81-99 [facility] Mean corpuscular hemoglobin (MCH) determinationOrdered By: Pancho Gagnon on 06-27-2024 MCH (RBC) [Entitic mass] 25.1 pg Low 27.0-32.0 [facility] Mean corpuscular hemoglobin concentration (MCHC) determinationOrdered By: Pancho Gagnon on 06-27-2024 MCHC (RBC) [Mass/Vol] 32.8 g/dL 32-36 [facility] Mean platelet volume determi nationOrdered By: Pancho Gagnon on 06-27-2024 Platelet mean volume (Bld) [Entitic vol] 10.5 fL 6.2-12.0 [facility] Monocyte percentageOrdered B y: Pancho Gagnon on 06-27-2024 Monocytes/100 WBC (Bld) 5.0 % 0-10 [facility] Neutrophil percentageOrdered By: Pancho Gagnon on 06-27-2024 Neutrophils/100 WBC (Bld) 83.1 % High 47-70 [facility] Nucleated red blood cell per centageOrdered By: Pancho Gagnon on 06-27-2024 Nucleated RBC/100 WBC (Bld) [Ratio] 0 % 0-5 [facility] Credit Relationship Manager Office Visit Reporton 06-27-2024 Credit Relationship Manager Office Visit Report Normal [facility] Platelet countOrdered By: Sylvie Gagnon on 06-27-2024 Platelets (Bld) [#/Vol] 203 10*3/uL 150-450 [facility] Potassium (Unsp spec) [Mass/ Vol]Ordered By: Pancho Gagnon on 06-27-2024 Potassium [Moles/Vol] 3.4 mmol/L 3.3-5.1 [facility] Potassium measurement (mass/ volume)Ordered By: Pancho Gagnon on 06-27-2024 Potassium (Unsp spec) [Mass/Vol] 3.4 mmol/L 3.3-5.1 [facility] Prothrombin timeOrdered By: Pancho Gagnon on 06-27-2024 PT Coag (PPP) [Time] 14.0 s 11.7-14.9 [facility] RBC Auto (Bld) [#/Vol]Ordere d By: Pancho Gagnon on 06-27-2024 RBC (Bld) [#/Vol] 3.94 10*6/uL Low 4.2-5.4 [facility] Serum creatinine measurement (mass/volume)Ordered By: Pancho Gagnon on 06-27-2024 Creatinine [Mass/Vol] 0.58 mg/dL Low 0.70-1.20 [facility] Serum glucose measurement (m ass/volume)Ordered By: Pancho Gagnon on 06-27-2024 Glucose [Mass/Vol] 102 mg/dL High 70-99 [facility] Serum human chorionic gonado tropin detection for pregnancyOrdered By: Pancho Gagnon on 06-27-2024 HCG ( test[place]l [address] mIU/mL High <9 [facility] Comment on above: Gestational Age0.2-1 Week: 5-50 mIU/mL1-2 Weeks: 50-500 mIU/mL2-3 Weeks: 100-5000 mIU/mL3-4 Weeks: 500-10,000 mIU/mL4-5 Weeks:1000-50,000 mIU/mL5-6 Weeks: 10,000-100,000 mIU/mL6-8 Weeks: 15,000-200,000 mIU/mL2-3 Months:10,000-100,000 mIU/mL Serum or plasma calcium janette urement (mass/volume)Ordered By: Pancho Gagnon on 06-27-2024 Calcium [Mass/Vol] 8.3 mg/dL 7.6-11.0 [facility] Serum or plasma urea nitroge n measurement (mass/volume)Ordered By: Pancho Gagnon on 06-27-2024 Urea nitrogen [Mass/Vol] 7 mg/dL 4-19 [facility] Sodium levelOrdered By: Sam Gagnon on 06-27-2024 Sodium [Moles/Vol] 134 mmol/L 133-145 [facility] White blood cell (WBC) count Ordered By: Pancho Gagnon on 06-27-2024 WBC (Bld) [#/Vol] 5.6 10*3/uL 4.4-11.0 [facility] aPTT Coag (PPP) [Time]Ordere d By: Pancho Gagnon on 06-27-2024 aPTT Coag (Bld) [Time] 30.9 s 24.1-36.2 [facility] - Chemistry and C hemistry - challengeOrdered By: Peggy Sanchez on 06-19-2024 Glucose Ql (U) Negative [facility] Laboratory - UrinalysisOrder ed By: Peggy Sanchez on 06-19-2024 Protein Ql (U) Negative [facility] Credit Relationship Manager Office Visit Reporton 06-19-2024 Credit Relationship Manager Office Visit Report Normal [facility] Emergency Department Summary on 06-17-2024 Emergency Department Summary Normal [facility] Bacteria LM.HPF (Urine sed) [#/Area]Ordered By: Jay Liu on 06-16-2024 Urine Bacteria RARE /hpf None Seen [facility] Bilirubin Test strip Ql (U)O rdered By: Jay Liu on 06-16-2024 Bilirubin Ql (U) Negative Negative [facility] Epithelial cells.squamous LM Ql (Urine sed)Ordered By: Jay Liu on 06-16-2024 Epithelial cells.squamous LM.HPF (Urine sed) [#/Area] 0 /[HPF] 5-10 [facility] Glucose Ql (U)Ordered By: Jeffrey Liu on 06-16-2024 Urine Glucose (UA) Normal mg/dl Normal [facility] Ketones Test strip Ql (U)Ord ered By: Jay Liu on 06-16-2024 Ketones Ql (U) 5 mg/dl High Negative [facility] Microscopic analysis of urin e for red blood cells (RBC)Ordered By: Jay Liu on 06-16-2024 Microscopic analysis of urine for red blood cells (RBC) 25-50 SEEN /hpf 0-5 [facility] Urine RBC 25-50 SEEN /hpf 0-5 [facility] Mucus LM Ql (Urine sed)Order ed By: Jay Liu on 06-16-2024 Mucus Ql (Urine sed) 0 SEEN /hpf [facility] Nitrite Test strip Ql (U)Ord ered By: Jay Liu on 06-16-2024 Nitrite Ql (U) Negative Negative [facility] Protein Test strip Ql (U)Ord ered By: Jay Liu on 06-16-2024 Protein Ql (U) 30 mg/dl High Negative [facility] Squamous epithelial cells de tection in urine sediment by light microscopyOrdered By: Jay Liu on 06-16-2024 Epithelial cells.squamous LM Ql (Urine sed) 0-5 SEEN /hpf 5-10 [facility] URINE CULTURE [CCL]on 2024 Bacteria identified Cx Nom (U) URCUL See Results Below See Below CULTURE, URINE MIXED MICROBIOTA >=100,000 CFU/ml Mixed microbiota No further workup. Mixed microbiota can be due to???urine???contaminat ion with s llection technique or straight catheterization for???urine???collectio n. SOURCE: Urine (Nonspecific) [place] [address] Kishore Mcdaniels III, M.D. [id number] SEND TO IC NO Normal [facility] Comment on above: Performed By: #### 2 [id number] #### [facility],[address] [place] [address] Urinalysis, Completeon 06-16 BACTERIA RARE Normal None Seen [facility] Comment on above: Order Comment: NOLVIA CTOR TO SPECIFY Performed By: #### L 400.0001 ####[facility] [address] [place], [address] EPI,SQUAMOUS 0-5 SEEN Normal 5-10 [facility] Comment on above: Order Comment: NOLVIA CTOR TO SPECIFY Performed By: #### L 400.0001 ####[facility] [address] [place], [address] RBC 25-50 SEEN Normal 0-5 [facility] Comment on above: Order Comment: NOLVIA CTOR TO SPECIFY Performed By: #### L 400.0001 ####[facility] [address] [place], [address] WBC 0-5 SEEN Normal 0-5 [facility] Comment on above: Order Comment: NOLVIA CTOR TO SPECIFY Performed By: #### L 400.0001 ####[facility] [address] [place], [address] Mucus Ql (Urine sed) 0 SEEN Normal [facility] Comment on above: Order Comment: NOLVIA CTOR TO SPECIFY Performed By: #### L 400.0001 ####[facility] [address] [place], [address] Urine blood detectionOrdered By: Jay Liu on 06-16-2024 Urine Occult Blood 250 /ul High Negative [facility] Urine clarityOrdered By: Chet Liu on 06-16-2024 Clarity (U) Clear Clear [facility] Urine color determinationOrd ered By: Jay Liu on 06-16-2024 Color (U) Yellow Yellow [facility] Urine glucose detectionOrder ed By: Jay Liu on 06-16-2024 Glucose Ql (U) Normal mg/dl Normal [facility] Urine leukocyte esterase det ection by dipstickOrdered By: Jay Liu on 06-16-2024 Leukocyte esterase Test strip Ql (U) 25 /ul High Negative [facility] Urine pHOrdered By: Jay Liu on 06-16-2024 pH (U) 6.0 [pH] 5.0 - 8.0 [facility] Urine sediment bacteria coun t by microscopy (number/high power field)Ordered By: Jay Liu on 06-16-2024 Bacteria LM.HPF (Urine sed) [#/Area] RARE /hpf None Seen [facility] Urine specific gravity measu rementOrdered By: Jaynancy Liu on 06-16-2024 Specific gravity (U) [Rel density] 1.025 1.002-1.030 [facility] Urine urobilinogen measureme ntOrdered By: Jay Alexa on 06-16-2024 Urobilinogen Ql (U) 4 mg/dl High Normal [facility] Urobilinogen Ql (U)Ordered B y: Jay Alexa on 06-16-2024 Urobilinogen (U) [Mass/Vol] 4 mg/dL High Normal [facility] White blood cell countOrdere d By: Jay Liu on 06-16-2024 Urine WBC 0-5 SEEN /hpf 0-5 [facility] White blood cell count 0-5 SEEN /hpf 0-5 [facility] Urine Cultureon 05-31-2024 URC Mixed Gram Positive Organisms Estill Count 11,000-25,000 [facility] Mixed contaminants. Submit a new specimen if indicated. Normal [facility] Comment on above: Performed By: #### L 100.0100, L501.9985, L500.4050, L509.4006, L509.8002, L3890.6006, L3890.6102, L3890.6301, BTS, L501.0900, L7000.1800, M100.2200 ####[facility] [address] [place], [address] Chlamydia/GC FRANCE aptimaon CHLAMY,NUC ACID Negative Normal Negative [facility] Comment on above: Performed By: #### L 100.0100, L501.9985, L500.4050, L509.4006, L509.8002, L3890.6006, L3890.6102, L3890.6301, BTS, L501.0900, L7000.1800, M100.2200 ####[facility] [address] [place], [place], [id number] GC BY NUC ACID Negative Normal Negative [facility] Comment on above: Result Comment: Perf ormed at: =G - [facility] [address] [id number] Director: Ese Pastor MD, Phone: [phone] Performed By: #### L 100.0100, L501.9985, L500.4050, L509.4006, L509.8002, L3890.6006, L3890.6102, L3890.6301, BTS, L501.0900, L7000.1800, M100.2200 ####[facility] [address] [place], [place], [phone] Absolute lymphocyte countOrd ered By: Peggy Sanchez on 05-29-2024 Lymphocytes Auto (Unsp spec) [#/Vol] 1.70 10*3/uL 0.83-4.51 [facility] Absolute neutrophil countOrd ered By: Peggy Sanchez on 05-29-2024 Neutrophils (Bld) [#/Vol] 5.2 10*3/uL 2.0-7.7 [facility] Anion gap in Serum or Plasma Ordered By: Peggy Sanchez on 05-29-2024 Anion gap [Moles/Vol] 14 mmol/L 5-15 [facility] Automated lymphocyte count a s percentage of total leukocytesOrdered By: Peggy Sanchez on 05-29-2024 Lymphocytes/100 WBC Auto (Unsp spec) 22.9 % 19-41 [facility] BUN/creatinine ratioOrdered By: Peggy Sanchez on 05-29-2024 Urea nitrogen/Creatinine [Mass ratio] 13.4 mg/mg 10-20 [facility] Basophil percentageOrdered B y: Peggy Sanchez on 05-29-2024 Basophils/100 WBC (Bld) 0.3 % 0-1 [facility] Bilirubin, totalOrdered By: Peggy Sanchez on 05-29-2024 Bilirubin [Mass/Vol] 0.38 mg/dL 0.00-1.30 [facility] C. trachomatis rRNA FRANCE+prob e Ql (Unsp spec)Ordered By: Peggy Sanchez on 05-29-2024 Chlamydia DNA (FRANCE) Negative Negative [facility] CBC W/Diff, Automatedon 04- PLT EST ADEQUATE Normal ADEQ [facility] Comment on above: Performed By: #### L 100.0100, L501.9985, L500.4050, L509.4006, L509.8002, L3890.6006, L3890.6102, L3890.6301, BTS, L501.0900, L7000.1800, M100.2200 ####[facility] [address] [place], [place], [phone] Carbon dioxide, total [Moles /volume] in Central venous bloodOrdered By: Peggy Sanchez on 05-29-2024 CO2 [Moles/Vol] 19.3 mmol/L Low 21.0-32.0 [facility] Chlamydia trachomatis rRNA d etection by probe and target amplification methodOrdered By: Peggy Sanchez on 05-29-2024 C. trachomatis rRNA FRANCE+probe Ql (Unsp spec) Negative Negative [facility] Chloride assayOrdered By: Amos Sanchez on 05-29-2024 Chloride [Moles/Vol] 103 mmol/L 98-108 [facility] Comprehensive Metabolic Prof ilon 05-29-2024 Albumin [Mass/Vol] 3.9 g/dL Normal 3.5-5.0 [facility] Comment on above: Performed By: #### L 100.0100, L501.9985, L500.4050, L509.4006, L509.8002, L3890.6006, L3890.6102, L3890.6301, BTS, L501.0900, L7000.1800, M100.2200 ####[facility] [address] [place], [place], [phone] Albumin/Globulin [Mass ratio] 1.3 {ratio} Normal 0.9-2.4 [facility] Comment on above: Performed By: #### L 100.0100, L501.9985, L500.4050, L509.4006, L509.8002, L3890.6006, L3890.6102, L3890.6301, BTS, L501.0900, L7000.1800, M100.2200 ####[facility] [address] [place], [address] ALK PHOS 55 U/L Normal 35-104 [facility] Comment on above: Performed By: #### L 100.0100, L501.9985, L500.4050, L509.4006, L509.8002, L3890.6006, L3890.6102, L3890.6301, BTS, L501.0900, L7000.1800, M100.2200 ####[facility] [address] [place], [address] ALT [Catalytic activity/Vol] 21 U/L Normal <=34 [facility] Comment on above: Performed By: #### L 100.0100, L501.9985, L500.4050, L509.4006, L509.8002, L3890.6006, L3890.6102, L3890.6301, BTS, L501.0900, L7000.1800, M100.2200 ####[facility] [address] [place], [address] AST [Catalytic activity/Vol] 20 U/L Normal <=31 [facility] Comment on above: Performed By: #### L 100.0100, L501.9985, L500.4050, L509.4006, L509.8002, L3890.6006, L3890.6102, L3890.6301, BTS, L501.0900, L7000.1800, M100.2200 ####[facility] [address] [place], [address] Bilirubin [Mass/Vol] 0.38 mg/dL Normal 0.00-1.30 [facility] Comment on above: Performed By: #### L 100.0100, L501.9985, L500.4050, L509.4006, L509.8002, L3890.6006, L3890.6102, L3890.6301, BTS, L501.0900, L7000.1800, M100.2200 ####[facility] [address] [place], [address] BUN/CRE 13.4 RATIO Normal 10-20 [facility] Comment on above: Performed By: #### L 100.0100, L501.9985, L500.4050, L509.4006, L509.8002, L3890.6006, L3890.6102, L3890.6301, BTS, L501.0900, L7000.1800, M100.2200 ####[facility] [address] [place], [address] Calcium [Mass/Vol] 8.9 mg/dL Normal 7.6-11.0 [facility] Comment on above: Performed By: #### L 100.0100, L501.9985, L500.4050, L509.4006, L509.8002, L3890.6006, L3890.6102, L3890.6301, BTS, L501.0900, L7000.1800, M100.2200 ####[facility] [address] [place], [address] Chloride [Moles/Vol] 103 mmol/L Normal 98-108 [facility] Comment on above: Performed By: #### L 100.0100, L501.9985, L500.4050, L509.4006, L509.8002, L3890.6006, L3890.6102, L3890.6301, BTS, L501.0900, L7000.1800, M100.2200 ####[facility] [address] [place], [address] CO2 [Moles/Vol] 19.3 mmol/L Low 21.0-32.0 [facility] Comment on above: Performed By: #### L 100.0100, L501.9985, L500.4050, L509.4006, L509.8002, L3890.6006, L3890.6102, L3890.6301, BTS, L501.0900, L7000.1800, M100.2200 ####[facility] [address] [place], [place], [phone](741) Creatinine [Mass/Vol] 0.56 mg/dL Low 0.70-1.20 [facility] Comment on above: Performed By: #### L 100.0100, L501.9985, L500.4050, L509.4006, L509.8002, L3890.6006, L3890.6102, L3890.6301, BTS, L501.0900, L7000.1800, M100.2200 ####[facility] [address] [place], [place], [phone]) GAP 14 Normal 5-15 [facility] Comment on above: Performed By: #### L 100.0100, L501.9985, L500.4050, L509.4006, L509.8002, L3890.6006, L3890.6102, L3890.6301, BTS, L501.0900, L7000.1800, M100.2200 ####[facility] [address] [place], [place], [phone](991) GFR/1.73 sq M.predicted among non-blacks MDRD (S/P/Bld) [Vol rate/Area] 127 mL/min/{1.73_m2} Normal >60 [facility] Comment on above: Result Comment: mL/m in/1.73m2 CKD-EPI Creatinine Equation (2020) Performed By: #### L 100.0100, L501.9985, L500.4050, L509.4006, L509.8002, L3890.6006, L3890.6102, L3890.6301, BTS, L501.0900, L7000.1800, M100.2200 ####[facility] [address] [place], [address] Globulin (S) [Mass/Vol] 3.0 g/dL Normal 2.2-4.2 [facility] Comment on above: Performed By: #### L 100.0100, L501.9985, L500.4050, L509.4006, L509.8002, L3890.6006, L3890.6102, L3890.6301, BTS, L501.0900, L7000.1800, M100.2200 ####[facility] [address] [place], [address] Glucose [Mass/Vol] 80 mg/dL Normal 70-99 [facility] Comment on above: Performed By: #### L 100.0100, L501.9985, L500.4050, L509.4006, L509.8002, L3890.6006, L3890.6102, L3890.6301, BTS, L501.0900, L7000.1800, M100.2200 ####[facility] [address] [place], [address] Potassium [Moles/Vol] 3.6 mmol/L Normal 3.3-5.1 [facility] Comment on above: Performed By: #### L 100.0100, L501.9985, L500.4050, L509.4006, L509.8002, L3890.6006, L3890.6102, L3890.6301, BTS, L501.0900, L7000.1800, M100.2200 ####[facility] [address] [place], [address] Sodium [Moles/Vol] 136 mmol/L Normal 133-145 [facility] Comment on above: Performed By: #### L 100.0100, L501.9985, L500.4050, L509.4006, L509.8002, L3890.6006, L3890.6102, L3890.6301, BTS, L501.0900, L7000.1800, M100.2200 ####[facility] [address] [place], [address] T PROT 6.8 g/dL Normal 5.9-8.4 [facility] Comment on above: Performed By: #### L 100.0100, L501.9985, L500.4050, L509.4006, L509.8002, L3890.6006, L3890.6102, L3890.6301, BTS, L501.0900, L7000.1800, M100.2200 ####[facility] [address] [place], [address] Urea nitrogen [Mass/Vol] 8 mg/dL Normal 4-19 [facility] Comment on above: Performed By: #### L 100.0100, L501.9985, L500.4050, L509.4006, L509.8002, L3890.6006, L3890.6102, L3890.6301, BTS, L501.0900, L7000.1800, M100.2200 ####[facility] [address] [place], [address] Creatinine Unsp time (U) [Ma ss/Vol]Ordered By: Peggy Sanchez on 05-29-2024 Creatinine (U) [Mass/Vol] 151.00 mg/dL 28.00-217.00 [facility] Eosinophil percentageOrdered By: Peggy Sanchez on 05-29-2024 Eosinophils/100 WBC (Bld) 0.5 % 0-5 [facility] Erythrocyte distribution wid th (RBC) [Ratio]Ordered By: Peggy Sanchez on 05-29-2024 Erythrocyte distribution width (RBC) [Entitic vol] 54.9 fL High 35.1-43.9 [facility] Erythrocyte distribution wid th ratioOrdered By: Peggy Sanchez on 05-29-2024 Erythrocyte distribution width (RBC) [Ratio] 20.4 % High 11.6-14.6 [facility] Erythrocyte distribution wid th standard deviationOrdered By: Peggy Sanchez on 05-29-2024 Erythrocyte distribution width (RBC) [Ratio] 54.9 fl High 35.1-43.9 [facility] GFR/1.73 sq M.predicted miryam g non-blacks MDRD (S/P/Bld) [Vol rate/Area]Ordered By: Peggy Sanchez on 05-29-2024 Estimated GFR (MDRD) Non-Af Amer 127 >60 [facility] Comment on above: mL/min/1.73m2 CKD-EP I Creatinine Equation (2020) Glomerular filtration rate ( GFR) estimation/1.73 sq m using serum, plasma, or whole bOrdered By: Peggy Sanchez on 05-29-2024 GFR/1.73 sq M.predicted among non-blacks MDRD (S/P/Bld) [Vol rate/Area] 127 mL/min/{1.73_m2} >60 [facility] Comment on above: mL/min/1.73m2 CKD-EP I Creatinine Equation (2020) HBV surface Ag Ql (S)Ordered By: Peggy Sanchez on 05-29-2024 Hepatitis B Surface Antigen Non-Reactive Nonreactive [facility] Comment on above: Reactive: Presumptiv e evidence of HBV. Repeatedly reactive samples must be confirmed using a neutralization test ([employer] HBsAg Confirmatory Test)Non-Reactive: HBsAg not detected; does not exclude the possibility of exposure to HBV HIVon 05-29-2024 HIV Non-Reactive Normal Nonreactive [facility] Comment on above: Result Comment: Non- ReactiveReactiveRepeatedly reactive samples must be confirmed according [facility] recommended confirmatory algorithms. The subresults foreither HIVAG or AHIV can be used as an aid in the selectionof the confirmation algorithm for reactive samples.Send out specimens with Reactive results to [facility] forconfirmation.Order the HIV antibody detection and differentiation:lc#[id number] Performed By: #### L 100.0100, L501.9985, L500.4050, L509.4006, L509.8002, L3890.6006, L3890.6102, L3890.6301, BTS, L501.0900, L7000.1800, M100.2200 ####[facility] [address] [place], [address] Hematocrit Auto (Bld) [Volum e fraction]Ordered By: Peggy Sanchez on 05-29-2024 Hematocrit (Bld) [Volume fraction] 38.8 % 37-47 [facility] Hemoglobin A1con 05-29-2024 HbA1c (Bld) [Mass fraction] 5.1 % Low <=5.6 [facility] Comment on above: Performed By: #### L 100.0100, L501.9985, L500.4050, L509.4006, L509.8002, L3890.6006, L3890.6102, L3890.6301, BTS, L501.0900, L7000.1800, M100.2200 ####[facility] [address] [place], [address] Hemoglobin A1c percentageOrd ered By: Peggy Sanchez on 05-29-2024 HbA1c (Bld) [Mass fraction] 5.1 % Low >5.7 [facility] Hemoglobin measurementOrdere d By: Peggy Sanchez on 05-29-2024 Hemoglobin (Bld) [Mass/Vol] 12.1 g/dL 12.0-15.0 [facility] Hepatitis C Antibodyon 05-29 Hepatitis C Ab Non-Reactive Normal Nonreactive [facility] Comment on above: Result Comment: Reac tive: Presumptive evidence of antibodies to HCV. [facility] supplemental testing.Non-Reactive: Antibodies to HCV were not detected; does notexclude the possibility of exposure to HCVReactive Results are presumptive evidence of antibodies toHCV. Follow CDC recommendations for supplemental testing.Order confirmation testing: HCV Quant by PCR testing -HCVPCR lc#[id number] Non Reactive: < 0.8 Equivocal: >/= 0.8 to < 1.0 Reactive: >/= 1.0The CDC requires that a reactive/equivocal HCV antibodyresult be sent out for confirmation. HCV Quant by PCRtesting. Performed By: #### L 100.0100, L501.9985, L500.4050, L509.4006, L509.8002, L3890.6006, L3890.6102, L3890.6301, BTS, L501.0900, L7000.1800, M100.2200 ####[facility] [address] [place], [address] Hepatitis C antibodyOrdered By: Peggy Sanchez on 05-29-2024 Hepatitis C Antibody Non-Reactive Nonreactive [facility] Comment on above: Reactive: Presumptiv e evidence of antibodies to HCV. Follow CDC recommendations for supplemental testing.Non-Reactive: Antibodies to HCV were not detected; does not exclude the possibility of exposure to HCVReactive Results are presumptive evidence of antibodies to HCV. Follow CDC recommendations for supplemental testing.Order confirmation testing: HCV Quant by PCR testing - HCVPCR lc#[id number] Non Reactive: < 0.8 Equivocal: >/= 0.8 to < 1.0 Reactive: >/= 1.0The CDC requires that a reactive/equivocal HCV antibody result be sent out for confirmation. HCV Quant by PCR testing. Immature granulocytes/100 WB C Auto (Bld)Ordered By: Peggy Sanchez on 05-29-2024 Immature granulocytes/100 WBC (Bld) 0.400 % 0.0-0.9 [facility] Comment on above: IG% - Immature Granu locytes (promyelocytes, myelocytes and metamyelocytes) > 1% indicates that a LEFT SHIFT is Present. L3890.6102on 05-29-2024 HEP B Surf Ag Non-Reactive Normal Nonreactive [facility] Comment on above: Result Comment: Reac tive: Presumptive evidence of HBV. Repeatedly reactivesamples must be confirmed using a neutralization test([employer] HBsAg Confirmatory Test)Non-Reactive: HBsAg not detected; does not exclude thepossibility of exposure to HBV Performed By: #### L 100.0100, L501.9985, L500.4050, L509.4006, L509.8002, L3890.6006, L3890.6102, L3890.6301, BTS, L501.0900, L7000.1800, M100.2200 ####[facility] [address] [place], [place], [id number] L509.4006on 05-29-2024 Rubella IgG REAC Normal Nonreactive [facility] Comment on above: Result Comment: Anti body Result: InterpretationNon-Reactive: Non-ImmuneReactive: ImmuneThe following results were obtained with the ElecsysRubella IgG assay. Results from assays of othermanufacturers cannot be used interchangeably. Performed By: #### L 100.0100, L501.9985, L500.4050, L509.4006, L509.8002, L3890.6006, L3890.6102, L3890.6301, BTS, L501.0900, L7000.1800, M100.2200 ####[facility] [address] [place], [place], [id number] Laboratory - Chemistry and C hemistry - challengeOrdered By: Peggy Sanchez on 05-29-2024 AST [Catalytic activity/Vol] 20 U/L <32 [facility] Laboratory - Microbiology an d Antimicrobial susceptibilityOrdered By: Peggy Sanchez on 05-29-2024 HBV surface Ag Ql (S) Non-Reactive Nonreactive [facility] Comment on above: Reactive: Presumptiv e evidence of HBV. Repeatedly reactive samples must be confirmed using a neutralization test ([employer] HBsAg Confirmatory Test)Non-Reactive: HBsAg not detected; does not exclude the possibility of exposure to HBV Lymphocytes Auto (Unsp spec) [#/Vol]Ordered By: Peggy Sanchez on 05-29-2024 Lymphocytes (Bld) [#/Vol] 1.70 10*3/uL 0.83-4.51 [facility] Lymphocytes/100 WBC Auto (Un sp spec)Ordered By: Peggy Sanchez on 05-29-2024 Lymphocytes/100 WBC (Bld) 22.9 % 19-41 [facility] MCV (mean corpuscular volume ) determinationOrdered By: Peggy Sanchez on 05-29-2024 MCV (RBC) [Entitic vol] 75.8 fL Low 81-99 [facility] Mean corpuscular hemoglobin (MCH) determinationOrdered By: Peggy Sanchez on 05-29-2024 MCH (RBC) [Entitic mass] 23.6 pg Low 27.0-32.0 [facility] Mean corpuscular hemoglobin concentration (MCHC) determinationOrdered By: Peggy Sanchez on 05-29-2024 MCHC (RBC) [Mass/Vol] 31.2 g/dL Low 32-36 [facility] Mean platelet volume determi nationOrdered By: Peggy Sanchez on 05-29-2024 Platelet mean volume (Bld) [Entitic vol] 11.1 fL 6.2-12.0 [facility] Monocyte percentageOrdered B y: Peggy Sanchez on 05-29-2024 Monocytes/100 WBC (Bld) 5.4 % 0-10 [facility] Neisseria gonorrhoeae nuclei c acid detection by amplified probe techniqueOrdered By: Peggy Sanchez on 05-29-2024 N. gonorrhoeae DNA [place]+probe Ql (Unsp spec) Negative Negative [facility] Comment on above: Performed at: =[address] [id number] Director: Ese Pastor MD, Phone: [phone] Neutrophil percentageOrdered By: Peggy Sanchez on 05-29-2024 Neutrophils/100 WBC (Bld) 70.5 % High 47-70 [facility] No Panel InformationOrdered By: Peggy Sanchez on 05-29-2024 HIV (1&2) Antibody Non-Reactive Nonreactive [facility] Comment on above: Non-ReactiveReactive Repeatedly reactive samples must be confirmed according to CDC recommended confirmatory algorithms. The subresults for either HIVAG or AHIV can be used as an aid in the selection of the confirmation algorithm for reactive samples.Send out specimens with Reactive results to [facility] for confirmation.Order the HIV antibody detection and differentiation: #[id number] Nucleated red blood cell per centageOrdered By: Peggy Sanchez on 05-29-2024 Nucleated RBC/100 WBC (Bld) [Ratio] 0 % 0-5 [facility] Credit Relationship Manager Office Visit Reporton 05-29-2024 Credit Relationship Manager Office Visit Report Normal [facility] Platelet countOrdered By: Amos Sanchez on 05-29-2024 Platelets (Bld) [#/Vol] 327 10*3/uL 150-450 [facility] Platelet estimateOrdered By: Peggy Sanchez on 05-29-2024 Platelets LM Ql (Bld) ADEQUATE ADEQ [facility] Platelets LM Ql (Bld)Ordered By: Peggy Sanchez on 05-29-2024 Platelet Estimate ADEQUATE [facility] Potassium (Unsp spec) [Mass/ Vol]Ordered By: Peggy Sanchez on 05-29-2024 Potassium [Moles/Vol] 3.6 mmol/L 3.3-5.1 [facility] Potassium measurement (mass/ volume)Ordered By: Peggy Sanchez on 05-29-2024 Potassium (Unsp spec) [Mass/Vol] 3.6 mmol/L 3.3-5.1 [facility] Protein+Creatinine Ratio,Uri neon 05-29-2024 PROT:CRE RATIO 153 mg/g CRE Normal 0-200 [facility] Comment on above: Performed By: #### L 100.0100, L501.9985, L500.4050, L509.4006, L509.8002, L3890.6006, L3890.6102, L3890.6301, BTS, L501.0900, L7000.1800, M100.2200 ####[facility] [address] [place], [address] Protein (U) [Mass/Vol] 23.1 mg/dL High 0.0-12.0 [facility] Comment on above: Performed By: #### L 100.0100, L501.9985, L500.4050, L509.4006, L509.8002, L3890.6006, L3890.6102, L3890.6301, BTS, L501.0900, L7000.1800, M100.2200 ####[facility] [address] [place], [address] UR CREAT 151.00 mg/dL Normal 28.00-217.00 [facility] Comment on above: Performed By: #### L 100.0100, L501.9985, L500.4050, L509.4006, L509.8002, L3890.6006, L3890.6102, L3890.6301, BTS, L501.0900, L7000.1800, M100.2200 ####[facility] [address] [place], [place], [address] Protein/Creatinine (U) [Mass ratio]Ordered By: Peggy Sanchez on 05-29-2024 Urine Protein/Creatinine Ratio 153 mg/g CRE 0-200 [facility] RBC Auto (Bld) [#/Vol]Ordere d By: Peggy Sanchez on 05-29-2024 RBC (Bld) [#/Vol] 5.12 10*6/uL 4.2-5.4 [facility] Random urine creatinine janette urement (mass/volume)Ordered By: Peggy Sanchez on 05-29-2024 Creatinine Unsp time (U) [Mass/Vol] 151.00 mg/dL 28.00-217.00 [facility] Rubella immune status determ ination by IgG antibody assayOrdered By: Peggy Sanchez on 05-29-2024 Rubella IgG Antibody REAC Nonreactive [facility] Comment on above: Antibody Result: Int erpretationNon-Reactive: Non-ImmuneReactive: ImmuneThe following results were obtained with the [employer] Rubella IgG assay. Results from assays of other manufacturers cannot be used interchangeably. Serum creatinine measurement (mass/volume)Ordered By: Peggy Sanchez on 05-29-2024 Creatinine [Mass/Vol] 0.56 mg/dL Low 0.70-1.20 [facility] Serum globulin measurementOr dered By: Peggy Sanchez on 05-29-2024 Globulin (S) [Mass/Vol] 3.0 g/dL 2.2-4.2 [facility] Serum glucose measurement (m ass/volume)Ordered By: Peggy Sanchez on 05-29-2024 Glucose [Mass/Vol] 80 mg/dL 70-99 [facility] Serum or plasma alanine barth otransferase (ALT) measurementOrdered By: Peggy Sanchez on 05-29-2024 ALT [Catalytic activity/Vol] 21 U/L <35 [facility] Serum or plasma albumin janette urement (mass/volume)Ordered By: Peggy Sanchez on 05-29-2024 Albumin [Mass/Vol] 3.9 g/dL 3.5-5.0 [facility] Serum or plasma albumin/glob ulin mass ratioOrdered By: Peggy Sanchez on 05-29-2024 Albumin/Globulin [Mass ratio] 1.3 {ratio} 0.9-2.4 [facility] Serum or plasma alkaline luz marina sphatase measurementOrdered By: Peggy Sanchez on 05-29-2024 ALP [Catalytic activity/Vol] 55 U/L 35-104 [facility] Serum or plasma calcium janette urement (mass/volume)Ordered By: Peggy Sanchez on 05-29-2024 Calcium [Mass/Vol] 8.9 mg/dL 7.6-11.0 [facility] Serum or plasma urea nitroge n measurement (mass/volume)Ordered By: Peggy Sanchez on 05-29-2024 Urea nitrogen [Mass/Vol] 8 mg/dL 4-19 [facility] Sodium levelOrdered By: Meche Sanchez on 05-29-2024 Sodium [Moles/Vol] 136 mmol/L 133-145 [facility] Syphilis Antibodieson 2024 Syphilis Abs Non-Reactive Normal Nonreactive [facility] Comment on above: Performed By: #### L 100.0100, L501.9985, L500.4050, L509.4006, L509.8002, L3890.6006, L3890.6102, L3890.6301, BTS, L501.0900, L7000.1800, M100.2200 ####[facility] [address] [place], [place], [id number] T. pallidum abOrdered By: Amos Sanchez on 05-29-2024 Syphilis Total Antibody Non-Reactive Nonreactiv e [facility] Total proteinOrdered By: Yeni Sanchez on 05-29-2024 Protein [Mass/Vol] 6.8 g/dL 5.9-8.4 [facility] Type AND Screenon 05-29-2024 Ab SCREEN GEL Negative Normal [facility] Comment on above: Order Comment: PN Performed By: #### L 100.0100, L501.9985, L500.4050, L509.4006, L509.8002, L3890.6006, L3890.6102, L3890.6301, BTS, L501.0900, L7000.1800, M100.2200 ####[facility] [address] [place], [place], [phone] Urine cultureOrdered By: Yeni Sanchez on 05-29-2024 Bacteria identified Cx Nom (U) Positive Abnormal [facility] Urine protein measurement (m ass/volume)Ordered By: Peggy Sanchez on 05-29-2024 Protein (U) [Mass/Vol] 23.1 mg/dL High 0.0-12.0 [facility] Urine protein/creatinine mas s ratioOrdered By: Peggy Sanchez on 05-29-2024 Protein/Creatinine (U) [Mass ratio] 153 mg/g CRE 0-200 [facility] White blood cell (WBC) count Ordered By: Peggy Sanchez on 05-29-2024 WBC (Bld) [#/Vol] 7.4 10*3/uL 4.4-11.0 [facility] 36on 05-26-2024 36 Normal [facility] Transvaginal w/Preg USon Transvaginal w/Preg US Normal [facility] CBC W/Diff, Automatedon - Absolute Neut Normal 2.0-7.7 [facility] Comment on above: Result Comment: PT D ISCHARGED Performed By: #### L 100.0100, L500.4050 ####[facility] [address] [place], [address] HCT Normal 37-47 [facility] Comment on above: Result Comment: PT D ISCHARGED Performed By: #### L 100.0100, L500.4050 ####[facility] [address] [place], [address] HGB Normal 12.0-15.0 [facility] Comment on above: Result Comment: PT D ISCHARGED Performed By: #### L 100.0100, L500.4050 ####[facility] [address] [place], [address] MCH Normal 27.0-32.0 [facility] Comment on above: Result Comment: PT D ISCHARGED Performed By: #### L 100.0100, L500.4050 ####[facility] [address] [place], [address] MCHC Normal 32-36 [facility] Comment on above: Result Comment: PT D ISCHARGED Performed By: #### L 100.0100, L500.4050 ####[facility] [address] [place], [address] MCV Normal 81-99 [facility] Comment on above: Result Comment: PT D ISCHARGED Performed By: #### L 100.0100, L500.4050 ####[facility] [address] [place], [address] NEUT% Normal 47-70 [facility] Comment on above: Result Comment: PT D ISCHARGED Performed By: #### L 100.0100, L500.4050 ####[facility] [address] [place], [address] PLT Normal 150-450 [facility] Comment on above: Result Comment: PT D ISCHARGED Performed By: #### L 100.0100, L500.4050 ####[facility] [address] [place], [address] RBC Normal 4.2-5.4 [facility] Comment on above: Result Comment: PT D ISCHARGED Performed By: #### L 100.0100, L500.4050 ####[facility] [address] [place], [address] RDW CV Normal 11.6-14.6 [facility] Comment on above: Result Comment: PT D ISCHARGED Performed By: #### L 100.0100, L500.4050 ####[facility] [address] [place], [address] RDW SD Normal 35.1-43.9 [facility] Comment on above: Result Comment: PT D ISCHARGED Performed By: #### L 100.0100, L500.4050 ####[facility] [address] [place], [address] WBC Normal 4.4-11.0 [facility] Comment on above: Result Comment: PT D ISCHARGED Performed By: #### L 100.0100, L500.4050 ####[facility] [address] [place], [address] Comprehensive Metabolic Prof stephany 05-18-2024 ALB Normal 3.5-5.0 [facility] Comment on above: Result Comment: NO S PECIMEN Performed By: #### L 100.0100, L500.4050 ####[facility] [address] [place], [address] ALK PHOS Normal 35-104 [facility] Comment on above: Result Comment: NO S PECIMEN Performed By: #### L 100.0100, L500.4050 ####[facility] [address] [place], [address] ALT Normal <=34 [facility] Comment on above: Result Comment: NO S PECIMEN Performed By: #### L 100.0100, L500.4050 ####[facility] [address] [place], [address] AST Normal <=31 [facility] Comment on above: Result Comment: NO S PECIMEN Performed By: #### L 100.0100, L500.4050 ####[facility] [address] [place], [address] BUN Normal 4-19 [facility] Comment on above: Result Comment: NO S PECIMEN Performed By: #### L 100.0100, L500.4050 ####[facility] [address] [place], [address] BUN/CRE Normal 10-20 [facility] Comment on above: Result Comment: NO S PECIMEN Performed By: #### L 100.0100, L500.4050 ####[facility] [address] [place], [address] Calcium Normal 7.6-11.0 [facility] Comment on above: Result Comment: NO S PECIMEN Performed By: #### L 100.0100, L500.4050 ####[facility] [address] [place], [address] CL Normal 98-108 [facility] Comment on above: Result Comment: NO S PECIMEN Performed By: #### L 100.0100, L500.4050 ####[facility] [address] [place], [address] CO2 Normal 21.0-32.0 [facility] Comment on above: Result Comment: NO S PECIMEN Performed By: #### L 100.0100, L500.4050 ####[facility] [address] [place], [address] CREAT,SERUM Normal 0.70-1.20 [facility] Comment on above: Result Comment: NO S PECIMEN Performed By: #### L 100.0100, L500.4050 ####[facility] [address] [place], [address] eGFR Normal >60 [facility] Comment on above: Result Comment: NO S PECIMEN Performed By: #### L 100.0100, L500.4050 ####[facility] [address] [place], [address] GAP Normal 5-15 [facility] Comment on above: Result Comment: NO S PECIMEN Performed By: #### L 100.0100, L500.4050 ####[facility] [facility] [address] [place], [address] GLU Normal 70-99 [facility] Comment on above: Result Comment: NO S PECIMEN Performed By: #### L 100.0100, L500.4050 ####[facility] [address] [place], [address] Potassium Normal 3.3-5.1 [facility] Comment on above: Result Comment: NO S PECIMEN Performed By: #### L 100.0100, L500.4050 ####[facility] [address] [place], [address] T BILI Normal 0.00-1.30 [facility] Comment on above: Result Comment: NO S PECIMEN Performed By: #### L 100.0100, L500.4050 ####[facility] [address] [place], [address] T PROT Normal 5.9-8.4 [facility] Comment on above: Result Comment: NO S PECIMEN Performed By: #### L 100.0100, L500.4050 ####[facility] [address] [place], [address] Comprehensive Metabolic Profil Normal 133-145 [facility] Comment on above: Result Comment: NO S PECIMEN Performed By: #### L 100.0100, L500.4050 ####[facility] [address] [place], [address] 29on 05-16-2024 29 Addended by: BALWINDER FAJARDO on: 05/16/2024 11:57 AM Modules accepted: Orders Normal [facility] 36on 05-16-2024 36 18 month labs entere d per JACINTA Normal [facility] 36on 05-12-2024 36 Order signed [facility] 36 Normal [facility] 36 Normal [facility] 36 ----- Message from Linette Campbell MD sent at 05/11/2024 6:11 PM EDT ----- Zinc and vitamin D are still low, please replace Normal [facility] 25-hydroxyvitamin D3 [Mass/V ol]on 05-11-2024 Interpretation and review of laboratory results Abnormal [facility] Target concentration : 30 - 40 ng/mL; toxicity seen at concentrations >100 ng/mL Less than 20 ng/mL: Indicative of Vit D deficiency Test performed by [employer], measuring Total Vitamin D, not individual fractions. [facility] CBC (HEMOGRAM)on 05-11-2024 Erythrocyte distribution width (RBC) [Ratio] 23.3 % High 11.5-15.0 [facility] Comment on above: Order Comment: These orders are set for an approximate date - they can be drawn up to 3 months prior to the Expected Date on this Req.Please send results to: [address] [address] - [phone] if not done at a [facility], please send to:[address], [address]Xhvjl: [phone] Qvnyhdv Name: Anne Marie Tran 1995Order Created by : Yeimy Fragoso LPN Performed By: #### L AB294 ####Senior Sustainability Advisor: HENNY WADE ([phone])[address] Hematocrit (Bld) [Volume fraction] 38.0 % Normal 35.0-47.0 [facility] Comment on above: Order Comment: These orders are set for an approximate date - they can be drawn up to 3 months prior to the Expected Date on this Req.Please send results to: [address] [address] - [phone] if not done at a [facility], please send to:[address], [address]Bntvr: [phone] Fplvsue Name: Anne Marie Peterson - 1995Order Created by : Yeimy Fragoso LPN Performed By: #### L AB294 ####Senior Sustainability Advisor: HENNY WADE ([phone])[address] Hemoglobin (Bld) [Mass/Vol] 11.8 g/dL Normal 11.7-16.0 [facility] Comment on above: Order Comment: These orders are set for an approximate date - they can be drawn up to 3 months prior to the Expected Date on this Req.Please send results to: [address] [address] - [phone] if not done at a [facility], please send to:[address], [address]Ctemt: [phone] Uvzemkz Name: Anne Marie Kemp/31/1996Order Created by : Yeimy Fragoso LPN Performed By: #### L AB294 ####Senior Sustainability Advisor: HENNY WADE ([phone])[facility])[address] [place] [address] IPF 3 Normal [facility] Comment on above: Order Comment: These orders are set for an approximate date - they can be drawn up to 3 months prior to the Expected Date on this Req.Please send results to: [address] [address] - [phone] if not done at a [facility], please send to:[place] [address]Phone: Xpxkqbr Name: Anne Marie Peterson 1995Order Created by : Yeimy Fragoso LPN Performed By: #### L AB294 ####Senior Sustainability Advisor: HENNY WADE ([phone])[facility])[address] [place] [address] MCH (RBC) [Entitic mass] 23.0 pg Low 26.0-34.0 [facility] Comment on above: Order Comment: These orders are set for an approximate date - they can be drawn up to 3 months prior to the Expected Date on this Req.Please send results to: [address] [address] - [phone] if not done at a [facility], please send to:[place] [address]Phone: Zynknqs Name: Anne Marie Tran 1995Order Created by : Yeimy Fragoso LPN Performed By: #### L AB294 ####Senior Sustainability Advisor: HENNY WADE ([phone])[facility])[address] [place] [address] MCHC 31.1 % Normal 30.5-36.0 [facility] Comment on above: Order Comment: These orders are set for an approximate date - they can be drawn up to 3 months prior to the Expected Date on this Req.Please send results to: [address] [address] - [phone] if not done at a [facility], please send to:[place] [address]Phone: Gzeofbb Name: Anne Marie Peterson 1995Order Created by : Yeimy Fragoso LPN Performed By: #### L AB294 ####Senior Sustainability Advisor: HENNY WADE ([phone])[address] MCV (RBC) [Entitic vol] 74.1 fL Low 77.0-99.0 [facility] Comment on above: Order Comment: These orders are set for an approximate date - they can be drawn up to 3 months prior to the Expected Date on this Req.Please send results to: [address] [address] - [phone] if not done at a [facility], please send to:[address] [address]Qeceg: [phone] Kdfydat Name: Anne Marie Peterson 1995Order Created by : Yeimy Fragoso LPN Performed By: #### L AB294 ####Senior Sustainability Advisor: HENNY WADE ([phone])[facility])[address] [place] [address] Platelet mean volume (Bld) [Entitic vol] 10.8 fL Normal 9.0-12.7 [facility] Comment on above: Order Comment: These orders are set for an approximate date - they can be drawn up to 3 months prior to the Expected Date on this Req.Please send results to: [address] [address] - [phone] if not done at a [facility], please send to:[address], [address]Gulzs: [phone] Gxdlkmm Name: Anne Marie Peterson - 1995Order Created by : Yeimy Fragoso LPN Performed By: #### L AB294 ####Senior Sustainability Advisor: HENNY WADE ([phone])[facility] ([facility])[address] [place] [address] Platelets (Bld) [#/Vol] 293 10*3/uL Normal 140-440 [facility] Comment on above: Order Comment: These orders are set for an approximate date - they can be drawn up to 3 months prior to the Expected Date on this Req.Please send results to: [address] [address] - [phone] if not done at a [facility], please send to:[address] [address]Nzgwz: [phone] Hxibewh Name: Anne Marie Peterson - 1995Order Created by : Yeimy Fragoso LPN Performed By: #### L AB294 ####Senior Sustainability Advisor: HENNY WADE ([phone])[facility] ([facility])[address] [place] [address] RBC (Bld) [#/Vol] 5.13 10*6/uL Normal 3.80-5.20 [facility] Comment on above: Order Comment: These orders are set for an approximate date - they can be drawn up to 3 months prior to the Expected Date on this Req.Please send results to: [address] [address] - [phone] if not done at a [facility], please send to:[address], [address]Ghywe: [phone] Vltqxna Name: Anne Marie Peterson - 1995Order Created by : Yeimy Fragoso LPN Performed By: #### L AB294 ####Senior Sustainability Advisor: HENNY WADE ([phone])[facility] ([facility])[address] [place] [address] WBC (Bld) [#/Vol] 6.9 10*3/uL Normal 3.6-10.7 [facility] Comment on above: Order Comment: These orders are set for an approximate date - they can be drawn up to 3 months prior to the Expected Date on this Req.Please send results to: [address] [address] - [phone] if not done at a [facility], please send to:[facility] [address], [address] [address]Gruek: [phone] Lmzrxho Name: Anne Marie Peterson - 1995Order Created by : Yeimy Fragoso LPN Performed By: #### L AB294 ####Senior Sustainability Advisor: HENNY WADE ([phone])[facility])[address] [place] [address] CBC panel Auto (Bld)Ordered By: Belle Alvarado on 05-11-2024 Erythrocyte distribution width (RBC) [Ratio] 23.3 % High 11.5 - 15.0 % [facility] Hematocrit (Bld) [Volume fraction] 38 % 35.0 - 47.0 % [facility] Hemoglobin (Bld) [Mass/Vol] 11.8 g/dL 11.7 - 16.0 g/dL [facility] Interpretation and review of laboratory results Abnormal [facility] IPF 3 [facility] MCH (RBC) [Entitic mass] 23 pg Low 26.0 - 34.0 pg [facility] MCHC (RBC) [Mass/Vol] 31.1 % 30.5 - 36.0 % [facility] MCV (RBC) [Entitic vol] 74.1 fL Low 77.0 - 99.0 fL [facility] Platelet mean volume (Bld) [Entitic vol] 10.8 fL 9.0 - 12.7 fL [facility] Platelets (Bld) [#/Vol] 293 10*3/uL 140 - 440 10*3/uL [facility] RBC (Bld) [#/Vol] 5.13 10*6/uL 3.80 - 5.2 0 10*6/uL [facility] WBC (Bld) [#/Vol] 6.9 10*3/uL 3.6 - 10.7 10*3/uL [facility] COMPREHENSIVE METABOLIC PANE Chavez 05-11-2024 Albumin [Mass/Vol] 3.7 g/dL Normal 3.5-5.0 [facility] Comment on above: Order Comment: These orders are set for an approximate date - they can be drawn up to 3 months prior to the Expected Date on this Req.Please send results to: [address] [address] - [phone] if not done at a [facility], please send to:[facility] [place] - [address] [place] [address], [address] [address]Ybtla: [phone] Gmdkuri Name: Anne Marie Peterson - 1995Order Created by : Yeimy rFagoso LPN Performed By: #### L AB67 ####Senior Sustainability Advisor: STERLING SERNA ([phone])[facility] ([facility])[address] [place] [address]#### LAB18, LAB69, LAB68, LAB17, [id number] ####Senior Sustainability Advisor: HENNY WADE ([phone])[facility] ([facility])[address] [place] [address] ALP [Catalytic activity/Vol] 60 U/L Normal 40-150 [facility] Comment on above: Order Comment: These orders are set for an approximate date - they can be drawn up to 3 months prior to the Expected Date on this Req.Please send results to: [address] [address] - [phone] if not done at a [facility], please send to:[address], [address]Xgkyc: [phone] Zrukjtw Name: Anne Marie Peterson - 1995Order Created by : Yeimy Fragoso LPN Performed By: #### L AB67 ####Senior Sustainability Advisor: STERLING SERNA ([phone])[facility] ([facility])[address] [place] [address]#### LAB18, LAB69, LAB68, LAB17, [id number] ####Senior Sustainability Advisor: HENNY WADE ([phone])[facility] ([facility])[address] [place] [address] ALT [Catalytic activity/Vol] 24 U/L Normal <30 [facility] Comment on above: Order Comment: These orders are set for an approximate date - they can be drawn up to 3 months prior to the Expected Date on this Req.Please send results to: [address] [address] - [phone] if not done at a [facility], please send to:[address], [address]Cofoj: [phone] Lgqfkes Name: Anne Marie Peterson - 1995Order Created by : Yeimy Fragoso LPN Performed By: #### L AB67 ####Senior Sustainability Advisor: STERLING SERNA ([phone])[facility] ([facility])[address] [place] [address]#### LAB18, LAB69, LAB68, LAB17, [id number] ####Senior Sustainability Advisor: HENNY WADE ([phone])[facility] ([facility])[address] [place] [address] Anion gap [Moles/Vol] 8 mmol/L Normal 3-13 [facility] Comment on above: Order Comment: These orders are set for an approximate date - they can be drawn up to 3 months prior to the Expected Date on this Req.Please send results to: [address] [address] - [phone] if not done at a [facility], please send to:[facility] - [address] [place] [address], [address]Qjshp: [phone] Yuhppan Name: Anne Marie Peterson 1995Order Created by : Yeimy Fragoso LOCK PLATER Performed By: #### L AB67 ####Senior Sustainability Advisor: STERLING SERNA ([phone])[facility] ([facility])[address] [place] [address]#### LAB18, LAB69, LAB68, LAB17, [id number] ####Senior Sustainability Advisor: HENNY WADE ([phone])[facility] ([facility])[address] [place] [address] AST [Catalytic activity/Vol] 24 U/L Normal <34 [facility] Comment on above: Order Comment: These orders are set for an approximate date - they can be drawn up to 3 months prior to the Expected Date on this Req.Please send results to: [address] [address] - [phone] if not done at a [facility], please send to:[facility] - [address] [place] [address], [address]Rudws: [phone] Hxyaoji Name: Anne Marie Peterson - 1995Order Created by : Yeimy Fragoso LPN Performed By: #### L AB67 ####Senior Sustainability Advisor: STERLING SERNA ([phone])[facility] ([facility])[address] [place] [address]#### LAB18, LAB69, LAB68, LAB17, [id number] ####Senior Sustainability Advisor: HENNY WADE ([phone])[facility] ([facility])[address] [place] [address] Bilirubin [Mass/Vol] 0.6 mg/dL Normal <1.2 [facility] Comment on above: Order Comment: These orders are set for an approximate date - they can be drawn up to 3 months prior to the Expected Date on this Req.Please send results to: [facility] [address] [address] - [phone] if not done at a [facility], please send to:[address], [address]Xypdo: [phone] Cdqkfvd Name: Anne Marie Peterson 1995Order Created by : Yeimy Fragoso LPN Performed By: #### L AB67 ####Senior Sustainability Advisor: STERLING SERNA ([phone])[facility] ([facility])[address] [place] [address]#### LAB18, LAB69, LAB68, LAB17, [id number] ####Senior Sustainability Advisor: HENNY WADE ([phone])[facility] ([facility])[address] [place] [address] Calcium [Mass/Vol] 9.2 mg/dL Normal 8.4-10.2 [facility] Comment on above: Order Comment: These orders are set for an approximate date - they can be drawn up to 3 months prior to the Expected Date on this Req.Please send results to: [address] [address] - [phone] if not done at a [facility], please send to:[facility] - [address] [place] [address], [address]Lvsyp: [phone] Ymbebmp Name: Anne Marie Peterson 1995Order Created by : Yeimy Fragoso LPN Performed By: #### L AB67 ####Senior Sustainability Advisor: STERLING SERNA ([phone])[facility] ([facility])[address] [place] [address] [place]#### LAB18, LAB69, LAB68, LAB17, [id number] ####Senior Sustainability Advisor: HENNY WADE ([phone])[facility] ([facility])[address] [place] [address] Chloride [Moles/Vol] 106 mmol/L Normal 98-107 [facility] Comment on above: Order Comment: These orders are set for an approximate date - they can be drawn up to 3 months prior to the Expected Date on this Req.Please send results to: [address] [address] - [phone] if not done at a [facility], please send to:[place] [address]Phone: Vyycmzb Name: Anne Marie Perezley 1995Order Created by : Yeimy Fragoso LPN Performed By: #### L AB67 ####Senior Sustainability Advisor: STERLING SERNA ([phone])[facility] ([facility])[address] [place] [address]#### LAB18, LAB69, LAB68, LAB17, [id number] ####Senior Sustainability Advisor: HENNY WADE ([phone])[facility] ([facility])[address] [place] [address] CO2 [Moles/Vol] 24 mmol/L Normal 22-29 [facility] Comment on above: Order Comment: These orders are set for an approximate date - they can be drawn up to 3 months prior to the Expected Date on this Req.Please send results to: [address] [address] - [phone] if not done at a [facility], please send to:[address], [address], [address]Ziaad: [phone] Khycpub Name: Anne Marie Kristen 1995Order Created by : Yeimy Fragoso LPN Performed By: #### L AB67 ####Senior Sustainability Advisor: STERLING SERNA ([phone])[facility] ([facility])[address] [place] [address]#### LAB18, LAB69, LAB68, LAB17, [id number] ####Senior Sustainability Advisor: HENNY WADE ([phone])[facility] ([facility])[address] [place] [address] Creatinine [Mass/Vol] 0.66 mg/dL Normal 0.57-1.11 [facility] Comment on above: Order Comment: These orders are set for an approximate date - they can be drawn up to 3 months prior to the Expected Date on this Req.Please send results to: [address] [address] - [phone] if not done at a [facility], please send to:[address] [address]Ddcri: [phone] Rgjokdn Name: Anne Marie Peterson - 1995Order Created by : Yeimy Fragoso LPN Performed By: #### L AB67 ####Senior Sustainability Advisor: STERLING SERNA ([phone])[facility] ([facility])[address] [place] [address]#### LAB18, LAB69, LAB68, LAB17, [id number] ####Senior Sustainability Advisor: HENNY WADE ([phone])[facility] ([facility])[address] [place] [address] GLOMERULAR FILTRATION RATE ML/MIN/1.73 SQ M.PREDICTED >90.0 Normal >60.0 [facility] Comment on above: Order Comment: These orders are set for an approximate date - they can be drawn up to 3 months prior to the Expected Date on this Req.Please send results to: [address] [address] - [phone] if not done at a [facility], please send to:[address], [address]Afjsa: [phone] Pjndkja Name: Anne Marie Peterson - 1995Order Created by : Yeimy Fragoso LPN Result Comment: Calc ulation based on the Chronic Kidney Disease Epidemiology Collaboration (CKD-EPI) equation refit without adjustment for race Performed By: #### L AB67 ####Senior Sustainability Advisor: STERLING SERNA ([phone])[facility])[address] [place] [address]#### LAB18, LAB69, LAB68, LAB17, KTI740 ####Senior Sustainability Advisor: HENNY WADE ([phone])[facility] ([facility])[address] [place] [address] Glucose [Mass/Vol] 73 mg/dL Low 74-100 [facility] Comment on above: Order Comment: These orders are set for an approximate date - they can be drawn up to 3 months prior to the Expected Date on this Req.Please send results to: [place] [address] [address] - [phone] if not done at a [facility], please send to:[facility] - [address] [place] [address], [facility] [address] [facility], [address]Zjzzj: [phone] Xesqdty Name: Anne Marie Peterson - 1995Order Created by : Yeimy Fragoso LPN Performed By: #### L AB67 ####Senior Sustainability Advisor: STERLING SERNA ([phone])[facility] ([facility])[address] [place] [address]#### LAB18, LAB69, LAB68, LAB17, [id number] ####Senior Sustainability Advisor: HENNY WADE ([phone])[facility] ([facility])[address] [place] [address] Potassium [Moles/Vol] 3.9 mmol/L Normal 3.5-5.1 [facility] Comment on above: Order Comment: These orders are set for an approximate date - they can be drawn up to 3 months prior to the Expected Date on this Req.Please send results to: [address] [address] - [phone] if not done at a [facility], please send to:[address], [address]Xknyn: [phone] Qgyvawe Name: Anne Marie Peterson 1995Order Created by : Yeimy Fragoso LPN Result Comment: Plas ma potassium values may be up to 0.5 mmol/L lower than serum values. Performed By: #### L AB67 ####Senior Sustainability Advisor: STERLING SERNA ([phone])[facility] ([facility])[address] [place] [address]#### LAB18, LAB69, LAB68, LAB17, [id number] ####Senior Sustainability Advisor: HENNY WADE ([phone])[facility] ([facility] Protein [Mass/Vol] 6.7 g/dL Normal 6.4-8.3 [facility] Comment on above: Order Comment: These orders are set for an approximate date - they can be drawn up to 3 months prior to the Expected Date on this Req.Please send results to: [address] [address] - [phone] if not done at a [facility], please send to:[address], [address]Gecmy: [phone] Csszvib Name: Anne Marie Peterson 1995Order Created by : Yeimy Fragoso LPN Performed By: #### L AB67 ####Senior Sustainability Advisor: STERLING SERNA ([phone])[facility] ([facility])[address] [place] [address]#### LAB18, LAB69, LAB68, LAB17, [id number] ####Senior Sustainability Advisor: HENNY WADE ([phone])[facility] ([facility])[address] [place] [address] Sodium [Moles/Vol] 138 mmol/L Normal 136-145 [facility] Comment on above: Order Comment: These orders are set for an approximate date - they can be drawn up to 3 months prior to the Expected Date on this Req.Please send results to: [address] [address] - [phone] if not done at a [facility], please send to:[address] [address]Jedfz: [phone] Wctuiuv Name: Anne Marie Peterson 1995Order Created by : Yeimy Fragoso LPN Performed By: #### L AB67 ####Senior Sustainability Advisor: STERLING SERNA ([phone])[facility])[address] [place] [address]#### LAB18, LAB69, LAB68, LAB17, VJH502 ####Senior Sustainability Advisor: HENNY WADE ([phone])[facility])[address] [place] [address] Urea nitrogen [Mass/Vol] 6 mg/dL Low 8-21 [facility] [facility] Comment on above: Order Comment: These orders are set for an approximate date - they can be drawn up to 3 months prior to the Expected Date on this Req.Please send results to: [address] [address] - [phone] if not done at a [facility], please send to:[address], [address], [address]Jlaml: [phone] Iinwaqh Name: Anne Marie Peterson 1995Order Created by : Yeimy Fragoso LPN Performed By: #### L AB67 ####Senior Sustainability Advisor: STERLING SERNA ([phone])[facility]SErika [facility]ENTERCONSTANTINE (SBHLAB)[address]#### LAB18, LAB69, LAB68, LAB17, [id number] ####Senior Sustainability Advisor: HENNY WADE ([phone])[facility] (SACLAB)[address] [place] [address] Cobalamin (Vitamin B12) [Mas s/Vol]on 05-11-2024 Interpretation and review of laboratory results Normal [facility] Comprehensive metabolic 1998 panelon 05-11-2024 Albumin [Mass/Vol] 3.7 g/dL 3.5 - 5.0 g/dL [facility] ALP [Catalytic activity/Vol] 60 U/L 40 - 150 U/L [facility] ALT [Catalytic activity/Vol] 24 U/L NINF - 30 U/L [facility] Anion gap [Moles/Vol] 8 mmol/L 3 - 13 mmol/L [facility] AST [Catalytic activity/Vol] 24 U/L NINF - 34 U/L [facility] Bilirubin [Mass/Vol] 0.6 mg/dL NINF - 1.2 mg/dL [facility] Calcium [Mass/Vol] 9.2 mg/dL 8.4 - 10. 2 mg/dL [facility] Chloride [Moles/Vol] 106 mmol/L 98 - 10 7 mmol/L [facility] CO2 [Moles/Vol] 24 mmol/L 22 - 29 mmol/L [facility] Creatinine [Mass/Vol] 0.66 mg/dL 0.57 - 1.11 mg/dL [facility] GFR/1.73 sq M.predicted (S/P/Bld) [Vol rate/Area] - PINF [facility] Comment on above: Calculation based on the Chronic Kidney Disease Epidemiology Collaboration (CKD-EPI) equation refit without adjustment for race Glucose [Mass/Vol] 73 mg/dL Low 74 - 100 mg/dL [facility] Interpretation and review of laboratory results Abnormal [facility] Potassium [Moles/Vol] 3.9 mmol/L 3.5 - 5.1 mmol/L [facility] Comment on above: Plasma potassium juanito ues may be up to 0.5 mmol/L lower than serum values. Protein [Mass/Vol] 6.7 g/dL 6.4 - 8.3 g/dL [facility] Sodium [Moles/Vol] 138 mmol/L 136 - 145 mmol/L [facility] Urea nitrogen [Mass/Vol] 6 mg/dL Low 8 - 21 mg/dL [facility] FERRITINon 05-11-2024 Ferritin [Mass/Vol] 86 ng/mL Normal 5-204 [facility] Comment on above: Result Comment: JENNIFERE R COMMENTS:These orders are set for an approximate date - they can be drawn up to 3 months prior to the Expected Date on this Req.Please send results to: Xenia [address] [address] - [phone] if not done at a [facility] Facility, please send to:[address] [address]Fxynw: [phone] Bdpmezt Name: Anne Marie Peterson [place] 1995Order Created by : Yeimy Fragoso LPNFerritin levels below 10 ng/mL have been reported as indicative of iron deficiency anemia. Performed By: #### L AB67 ####Senior Sustainability Advisor: STERLING SERNA ([phone])[facility] (SBHLAB)[address] [place] [address]#### LAB18, LAB69, LAB68, LAB17, [id number] ####Senior Sustainability Advisor: HENNY WADE ([phone])[facility] (SACLAB)[address] [place] [address] FOLATEon 05-11-2024 FOLATE RESULT 9.8 ng/mL Normal 7.0-31.4 [facility] Comment on above: Order Comment: These orders are set for an approximate date - they can be drawn up to 3 months prior to the Expected Date on this Req.Please send results to: Xenia [address] [address] - [phone] if not done at a [facility] Facility, please send to:[address], [address]Cijnp: [phone] Tiakuwm Name: Anne Marie Peterson - 1995Order Created by : Yeimy Fragoso LPN Performed By: #### L AB67 ####Senior Sustainability Advisor: STERLING SERNA ([phone])[facility] ESTELITACONSTANTINE (SBHLAB)[address] [place] [address]#### LAB18, LAB69, LAB68, LAB17, [id number] ####Senior Sustainability Advisor: HENNY WADE ([phone])[facility] (SACLAB)[address] [place] [address] Ferritin [Mass/Vol]on 2024 Interpretation and review of laboratory results Normal [facility] Ferritin levels belo w 10 ng/mL have been reported as indicative of iron deficiency anemia. [facility] Folate [Mass/Vol]on 05-12-19 Interpretation and review of laboratory results Normal [facility] IRONon 05-11-2024 IRON, TOTAL 47 ug/dL Low 50-170 [facility] Comment on above: Order Comment: These orders are set for an approximate date - they can be drawn up to 3 months prior to the Expected Date on this Req.Please send results to: [address] [address] - [phone] if not done at a [facility], please send to:[facility] [place] - [address] [place] [address], [address], [address]Pyumn: [phone] Hoytdmp Name: Anne Marie Peterson - 1995Order Created by : Yeimy Fragoso LPN Performed By: #### L AB535, LAB94 ####Senior Sustainability Advisor: HENNY WADE ([phone])[facility] (SACLAB)[address] [place] [address] Iron and Iron binding capaci ty panelon 05-11-2024 Interpretation and review of laboratory results Abnormal [facility] Iron [Mass/Vol] 47 ug/dL Low 50 - 170 ug/dL [facility] LIPID PANELon 05-11-2024 Cholesterol [Mass/Vol] 138 mg/dL Normal <200 [facility] Comment on above: Order Comment: These orders are set for an approximate date - they can be drawn up to 3 months prior to the Expected Date on this Req.Please send results to: [address] [address] - [phone] if not done at a [facility] Facility, please send to:[address], [address]Lqmek: [phone] Pakvaek Name: Anne Marie Peterson - 1995Order Created by : Yeimy Fragoso LPN Performed By: #### L AB67 ####Senior Sustainability Advisor: STERLING SERNA ([phone])[facility]PITALSadiq ([facility])[address] [place] [address]#### LAB18, LAB69, LAB68, LAB17, [id number] ####Senior Sustainability Advisor: HENNY WADE ([phone])[facility] ([facility])[address] [place] [address] Cholesterol in HDL [Mass/Vol] 41 mg/dL Low >=60 [facility] Comment on above: Order Comment: These orders are set for an approximate date - they can be drawn up to 3 months prior to the Expected Date on this Req.Please send results to: [address] [address] - [phone] if not done at a [facility], please send to:[facility] - [address] [place] [address], [address]Xvjtp: [phone] Fehlzoy Name: Anne Marie Peterson 1995Order Created by : Yeimy Fragoso LPN Performed By: #### L AB67 ####Senior Sustainability Advisor: STERLING SERNA ([phone])[facility] ([facility])[address] [place] [address]#### LAB18, LAB69, LAB68, LAB17, [id number] ####Senior Sustainability Advisor: HENNY WADE ([phone])[facility] ([facility])[address] [place] [address] Cholesterol.total/Gerardo sterol in HDL [Mass ratio] 3 {ratio} Normal [facility] Comment on above: Order Comment: These orders are set for an approximate date - they can be drawn up to 3 months prior to the Expected Date on this Req.Please send results to: [address] [address] - [phone] if not done at a [facility], please send to:[facility] - [address] [place] [address], [address]Zyexb: [phone] Enxtgvs Name: Anne Marie Kristen - 1995Order Created by : Yeimy Fragoso LPN Result Comment: Ref Range:< 3 Low Risk for CHD3-6 Mod Risk for CHD> 6 High Risk for CHD Performed By: #### L AB67 ####Senior Sustainability Advisor: STERLING SERNA ([phone])[facility] (SBHLAB)[address] [place] [address]#### LAB18, LAB69, LAB68, LAB17, [id number] ####Senior Sustainability Advisor: HENNY WADE ([phone])[facility] ([facility])[address] [place] [address] LOW DENSITY LIPOPROTEIN 86 mg/dL Normal 0-<100 [facility] Comment on above: Order Comment: These orders are set for an approximate date - they can be drawn up to 3 months prior to the Expected Date on this Req.Please send results to: [address] [address] - [phone] if not done at a [facility] Facility, please send to:[address], [address]Uzvbh: [phone] Ketiyoq Name: Anne Marie Peterson - 1995Order Created by : Yeimy Fragoso LPN Performed By: #### L AB67 ####Senior Sustainability Advisor: STERLING [phone])[facility]SErika DAMIAN (SBHLAB)[address]#### LAB18, LAB69, LAB68, LAB17, [id number] ####Senior Sustainability Advisor: HENNY WADE ([phone])[facility] ([facility])[address] [place] [address] NON-HDL CHOLESTEROL, CALCULATED 97 Normal <130 [facility] Comment on above: Order Comment: These orders are set for an approximate date - they can be drawn up to 3 months prior to the Expected Date on this Req.Please send results to: [address] [address] - [phone] if not done at a [facility], please send to:[address] [address]Ddrtq: [phone] Nzabcfi Name: Anne Marie Kristen - 1995Order Created by : Yeimy Fragoso LPN Performed By: #### L AB67 ####Senior Sustainability Advisor: STERLING SERNA ([phone])[facility] (SBHLAB)[address] [place] [address]#### LAB18, LAB69, LAB68, LAB17, [id number] ####Senior Sustainability Advisor: HENNY WADE ([phone])[facility] (PSYCHIATRICLAB)[address] [place] [address] Triglyceride [Mass/Vol] 53 mg/dL Normal <150 [facility] Comment on above: Order Comment: These orders are set for an approximate date - they can be drawn up to 3 months prior to the Expected Date on this Req.Please send results to: [address] [address] - [phone] if not done at a [facility], please send to:[address] [address]Vwfnh: [phone] Pzioogs Name: Anne Marie Kristen Tran 1995Order Created by : Yeimy Fragoso LPN Performed By: #### L AB67 ####Senior Sustainability Advisor: STERLING SERNA ([phone])[facility] ([facility])[address] [place] [address]#### LAB18, LAB69, LAB68, LAB17, [id number] ####Senior Sustainability Advisor: HENNY WADE ([phone])[facility] ([facility])[address] [place] [address] VERY LOW DENSITY LIPOPROTEIN, CALCULATED 11 mg/dL Normal <=30 [facility] Comment on above: Order Comment: These orders are set for an approximate date - they can be drawn up to 3 months prior to the Expected Date on this Req.Please send results to: [address] [address] - [phone] if not done at a [facility], please send to:[facility] [address] [address]Tjihn: [phone] Svowhyc Name: Anne Marie Peterson - 1995Order Created by : Yeimy Fragoso LPN Performed By: #### L AB67 ####Senior Sustainability Advisor: STERLING SRENA ([phone])[facility] ([facility])[address] [place] [address]#### LAB18, LAB69, LAB68, LAB17, [id number] ####Senior Sustainability Advisor: HENNY WADE ([phone])[facility] (SACLAB)[address] [place] [address] Laboratory - Chemistry and C hemistry - challengeon 05-11-2024 Cobalamin (Vitamin B12) [Mass/Vol] 300 pg/mL 213 - 816 pg/mL [facility] Folate [Mass/Vol] 9.8 ng/mL 7.0 - 31.4 ng/mL [facility] Ferritin [Mass/Vol] 86 ng/mL 5 - 204 ng/mL [facility] Magnesium [Mass/Vol] 1.9 mg/dL 1.6 - 2 .6 mg/dL [facility] 25-hydroxyvitamin D3 [Mass/Vol] 14 ng/mL Low See comment [facility] Lipid 1996 panelon Cholesterol [Mass/Vol] 138 mg/dL NINF - 200 mg/dL [facility] Cholesterol in HDL [Mass/Vol] 41 mg/dL Low 60 - PINF mg/dL [facility] Cholesterol in LDL [Mass/Vol] 86 mg/dL 0 - <100 [facility] Cholesterol.total/Gerardo sterol in HDL [Mass ratio] 3 {ratio} [facility] Comment on above: Ref Range: < 3 Low Risk for CHD 3-6 Mod Risk for CHD > 6 High Risk for CHD Interpretation and review of laboratory results Abnormal [facility] NON-HDL CHOLESTEROL, CALCULATED 97 NINF - 130 [facility] Triglyceride [Mass/Vol] 53 mg/dL NINF - 150 mg/dL [facility] VERY LOW DENSITY LIPOPROTEIN, CALCULATED 11 mg/dL NINF - 30 mg/dL [facility] MAGNESIUMon 05-11-2024 Magnesium [Mass/Vol] 1.9 mg/dL Normal 1.6-2.6 [facility] Comment on above: Result Comment: SPENCER Miranda COMMENTS:These orders are set for an approximate date - they can be drawn up to 3 months prior to the Expected Date on this Req.Please send results to: [address] [address] - [phone] if not done at a [facility], please send to:[facility] [address], [address], [address]Araeq: [phone] Fkicjop Name: Anne Marie Peterson - 1995Order Created by : Yeimy Fragoso LPNHigher values can be expected in females during menses. Performed By: #### L AB67 ####Senior Sustainability Advisor: STERLING SERNA ([phone])[facility] (SBHLAB)[address] [place] [address]#### LAB18, LAB69, LAB68, LAB17, NRL278 ####Senior Sustainability Advisor: HENNY WADE ([phone])[facility] (SACLAB)[address] [place] [address] [facility] Magnesium [Mass/Vol]on 05-11 Interpretation and review of laboratory results Normal [facility] Higher values can be expected in females during menses. [facility] No Panel Informationon 05-11 [facility] Progress Noteon 05-11-2024 Progress Note Normal [facility] VITAMIN B1, WHOLE BLOOD (BKR [facility])on 05-11-2024 [facility] VITAMIN B1 (THIAMINE), BLOOD, LC/MS/MS 108 nmol/L Normal 78-185 [facility] Comment on above: Order Comment: These orders are set for an approximate date - they can be drawn up to 3 months prior to the Expected Date on this Req.Please send results to: [address] [address] - [phone] if not done at a [facility], please send to:[address], [address], [address]Okkwx: [phone] Vuytxkf Name: Anne Marie Peterson - 1995Order Created by : Yeimy Fragoso LPN Result Comment: Precious min supplementation within 24 hours prior toblood draw may affect the accuracy of the results.This test was developed and its analytical performancecharacteristics have been determined by [employer] [place], [place]. It hasnot been cleared or approved by the U.S. Food and DrugAdministration. This assay has been validated pursuantto the CLIA regulations and is used for clinicalpurposes.Test Performed by [facility],[address] [place] [address]Gpaxcsgniranjan Seth M.D., Ph.D., Director of [phone], CLIA [id number] Performed By: #### L AB745 ####[facility] (AMDBEAKER)[address] [place] [address] [place] VITAMIN B12on 05-11-2024 Cobalamin (Vitamin B12) [Mass/Vol] 300 pg/mL Normal 213-816 [facility] Comment on above: Order Comment: These orders are set for an approximate date - they can be drawn up to 3 months prior to the Expected Date on this Req.Please send results to: [address] [address] - [phone] if not done at a [facility], please send to:[address], [address]Dvtgz: [phone] Tmskxev Name: Anne Marie Tran 1995Order Created by : Yeimy Fragoso LPN Performed By: #### L AB67 ####Senior Sustainability Advisor: STERLING SERNA ([phone])[facility] (SBHLAB)[address] [place] [address]#### LAB18, LAB69, LAB68, LAB17, NAB943 ####Senior Sustainability Advisor: HENNY WADE ([phone])[facility] (SACLAB)[address] [place] [address] VITAMIN D DEFICIENCY SCREENI NG (VIT D 25)on 05-11-2024 VIT D 25-OH, TOTAL 14 ng/mL Low See comment [facility] Comment on above: Result Comment: SPENCER Miranda COMMENTS:These orders are set for an approximate date - they can be drawn up to 3 months prior to the Expected Date on this Req.Please send results to: [address] [address] - [phone] if not done at a [facility], please send to:[address], [address]Vvnfn: [phone] Pywmeir Name: Anne Marie Tran 1995Order Created by : Yeimy Fragoso LPNTarget concentration: 30 - 40 ng/mL; toxicity seen at concentrations >100 ng/mLLess than 20 ng/mL: Indicative of Vit D deficiencyTest performed by [employer], measuring Total Vitamin D, not individual fractions. Performed By: #### L AB535, LAB94 ####Senior Sustainability Advisor: HENNY WADE ([phone])[facility] (SACLAB)[address] [place] [address] [facility] ZINC (BKR [facility])on [facility] ZINC 60 mcg/dL Normal 60-130 [facility] Comment on above: Order Comment: These orders are set for an approximate date - they can be drawn up to 3 months prior to the Expected Date on this Req.Please send results to: [address] [address] - [phone] if not done at a [facility], please send to:[facility] - [address] [place] [address], [address] [facility], [address]Brxam: [phone] Iqwtvcj Name: Anne Marie Peterson - 1995Order Created by : Yeimy Fragoso LPN Result Comment: This test was developed and its analytical performancecharacteristics have been determined by [employer] [place], [place]. It hasnot been cleared or approved by the U.S. Food and DrugAdministration. This assay has been validated pursuantto the CLIA regulations and is used for clinicalpurposes.Test Performed by [facility],[address] [place] [address]Uxzijszniranjan Seth M.D., Ph.D., Director of [phone], CLIA [id number] Performed By: #### L AB581 ####[facility] (AMDBEAKER)[address] [place] [address] [place] Transvaginal w/Preg USon Transvaginal w/Preg US Normal [facility] HCG ( test) QlOrder ed By: Peggy Sanchez on 05-05-2024 Human Chorionic Gonadotropin, Quant 18590 mIU/mL High <9 [facility] Comment on above: Gestational Age0.2-1 Week: 5-50 mIU/mL1-2 Weeks: 50-500 mIU/mL2-3 Weeks: 100-5000 mIU/mL3-4 Weeks: 500-10,000 mIU/mL4-5 Weeks:1000-50,000 mIU/mL5-6 Weeks: 10,000-100,000 mIU/mL6-8 Weeks: 15,000-200,000 mIU/mL2-3 Months:10,000-100,000 mIU/mL Serum human chorionic gonado tropin detection for pregnancyOrdered By: Peggy Sanchez on 05-05-2024 HCG ( test) [place]l [address] mIU/mL High <9 [facility] Comment on above: Gestational Age0.2-1 Week: 5-50 mIU/mL1-2 Weeks: 50-500 mIU/mL2-3 Weeks: 100-5000 mIU/mL3-4 Weeks: 500-10,000 mIU/mL4-5 Weeks:1000-50,000 mIU/mL5-6 Weeks: 10,000-100,000 mIU/mL6-8 Weeks: 15,000-200,000 mIU/mL2-3 Months:10,000-100,000 mIU/mL hCG Titer Quant., Serumon HCG QUANT. 73268 mIU/mL High <9 non-preg [facility] Comment on above: Result Comment: Gest ational Age0.2-1 Week: 5-50 mIU/mL1-2 Weeks: 50-500 mIU/mL2-3 Weeks: 100-5000 mIU/mL3-4 Weeks: 500-10,000 mIU/mL4-5 Weeks:1000-50,000 mIU/mL5-6 Weeks: 10,000-100,000 mIU/mL6-8 Weeks: 15,000-200,000 mIU/mL2-3 Months:10,000-100,000 mIU/mL Performed By: #### L 700.8000 ####[facility] [address] [place], [place], [id number] HCG ( test) QlOrder ed By: Peggy Sanchez on 05-02-2024 Human Chorionic Gonadotropin, Quant 9318 mIU/mL High <9 [facility] Comment on above: Gestational Age0.2-1 Week: 5-50 mIU/mL1-2 Weeks: 50-500 mIU/mL2-3 Weeks: 100-5000 mIU/mL3-4 Weeks: 500-10,000 mIU/mL4-5 Weeks:1000-50,000 mIU/mL5-6 Weeks: 10,000-100,000 mIU/mL6-8 Weeks: 15,000-200,000 mIU/mL2-3 Months:10,000-100,000 mIU/mL Serum human chorionic gonado tropin detection for pregnancyOrdered By: Peggy Sanchez on 05-02-2024 HCG ( test) Ql 9318 mIU/mL High <9 [facility] Comment on above: Gestational Age0.2-1 Week: 5-50 mIU/mL1-2 Weeks: 50-500 mIU/mL2-3 Weeks: 100-5000 mIU/mL3-4 Weeks: 500-10,000 mIU/mL4-5 Weeks:1000-50,000 mIU/mL5-6 Weeks: 10,000-100,000 mIU/mL6-8 Weeks: 15,000-200,000 mIU/mL2-3 Months:10,000-100,000 mIU/mL hCG Titer Quant., Serumon HCG QUANT. 9318 mIU/mL High <9 non-preg [facility] Comment on above: Result Comment: Gest ational Age0.2-1 Week: 5-50 mIU/mL1-2 Weeks: 50-500 mIU/mL2-3 Weeks: 100-5000 mIU/mL3-4 Weeks: 500-10,000 mIU/mL4-5 Weeks:1000-50,000 mIU/mL5-6 Weeks: 10,000-100,000 mIU/mL6-8 Weeks: 15,000-200,000 mIU/mL2-3 Months:10,000-100,000 mIU/mL Performed By: #### L 700.8000 ####[facility] [address] [place], [address] Transvaginal w/Preg USon Transvaginal w/Preg US Normal [facility] BUN/creatinine ratioOrdered By: Laurence Mccrary on 04-21-2024 Urea nitrogen/Creatinine [Mass ratio] 14.0 mg/mg 10-20 [facility] Bilirubin, totalOrdered By: Laurence Mccrary on 04-21-2024 Bilirubin [Mass/Vol] 0.62 mg/dL 0.00-1.30 [facility] Carbon dioxide measurementOr dered By: Laurence Mccrary on 04-21-2024 CO2 [Moles/Vol] 24.6 mmol/L 22.0-29.0 [facility] Chloride measurementOrdered By: Laurence Mccrary on 04-21-2024 Chloride [Moles/Vol] 104 mmol/L 96-108 [facility] Comprehensive Metabolic Prof ilon 04-21-2024 Albumin [Mass/Vol] 4.1 g/dL Normal 3.5-5.0 [facility] Comment on above: Performed By: #### L 500.4050 ####[facility] [address] [place] [id number] Albumin/Globulin [Mass ratio] 1.3 {ratio} Normal 0.9-2.4 [facility] Comment on above: Performed By: #### L 500.4050 ####[facility] [address] [facility] [address] ALK PHOS 74 U/L Normal 35-104 [facility] Comment on above: Performed By: #### L 500.4050 ####[facility] [address] [place], [address] ALT [Catalytic activity/Vol] 19 U/L Normal <=34 [facility] Comment on above: Performed By: #### L 500.4050 ####[facility] [address] [place], [address] Anion gap [Moles/Vol] 9 mmol/L Normal 5-15 [facility] Comment on above: Performed By: #### L 500.4050 ####[facility] [address] [facility] [address] AST [Catalytic activity/Vol] 19 U/L Normal <=31 [facility] Comment on above: Performed By: #### L 500.4050 ####[facility] [address] [place], [address] Bilirubin [Mass/Vol] 0.62 mg/dL Normal 0.00-1.30 [facility] Comment on above: Performed By: #### L 500.4050 ####[facility] [address] [place], [address] BUN/CRE 14.0 RATIO Normal 10-20 [facility] Comment on above: Performed By: #### L 500.4050 ####[facility] [address] [place], [address] Calcium [Mass/Vol] 9.3 mg/dL Normal 7.6-11.0 [facility] Comment on above: Performed By: #### L 500.4050 ####[facility] [address] [place], [address] Chloride [Moles/Vol] 104 mmol/L Normal 96-108 [facility] Comment on above: Performed By: #### L 500.4050 ####[facility] [address] [place], [address] CO2 [Moles/Vol] 24.6 mmol/L Normal 22.0-29.0 [facility] Comment on above: Performed By: #### L 500.4050 ####[facility] [address] [place], [address] Creatinine [Mass/Vol] 0.60 mg/dL Low 0.70-1.20 [facility] Comment on above: Performed By: #### L 500.4050 ####[facility] [address] [place], [address] GFR/1.73 sq M.predicted among non-blacks MDRD (S/P/Bld) [Vol rate/Area] 125 mL/min/{1.73_m2} Normal >60 [facility] Comment on above: Result Comment: mL/m in/1.73m2 CKD-EPI Creatinine Equation (2020) Performed By: #### L 500.4050 ####[facility] [address] [place], [address] Globulin (S) [Mass/Vol] 3.2 g/dL Normal 2.2-4.2 [facility] Comment on above: Performed By: #### L 500.4050 ####[facility] [address] [place], [address] Glucose [Mass/Vol] 92 mg/dL Normal 70-99 [facility] Comment on above: Performed By: #### L 500.4050 ####[facility] [address] [place], [address] Potassium [Moles/Vol] 4.3 mmol/L Normal 3.3-5.1 [facility] Comment on above: Performed By: #### L 500.4050 ####[facility] [address] [place], [address] Sodium [Moles/Vol] 138 mmol/L Normal 133-145 [facility] Comment on above: Performed By: #### L 500.4050 ####[facility] [address] [place], [address] T PROT 7.3 g/dL Normal 5.9-8.4 [facility] Comment on above: Performed By: #### L 500.4050 ####[facility] [address] [place], [address] Urea nitrogen [Mass/Vol] 8 mg/dL Normal 4-19 [facility] Comment on above: Performed By: #### L 500.4050 ####[facility] [address] [place], [address] GFR/1.73 sq M.predicted miryam g non-blacks MDRD (S/P/Bld) [Vol rate/Area]Ordered By: Laurence Mccrary on 04-21-2024 Estimated GFR (MDRD) Non-Af Amer 125 >60 [facility] Comment on above: mL/min/1.73m2 CKD-EP I Creatinine Equation (2020) Gastroenterology Visit Repor ton 04-21-2024 Gastroenterology Visit Report Normal [facility] Glomerular filtration rate ( GFR) estimation/1.73 sq m using serum, plasma, or whole bOrdered By: Laurence Mccrary on 04-21-2024 GFR/1.73 sq M.predicted among non-blacks MDRD (S/P/Bld) [Vol rate/Area] 125 mL/min/{1.73_m2} >60 [facility] Comment on above: mL/min/1.73m2 CKD-EP I Creatinine Equation (2020) Laboratory - Chemistry and C hemistry - challengeOrdered By: Laurence Mccrary on 04-21-2024 AST [Catalytic activity/Vol] 19 U/L <32 [facility] Serum creatinine measurement (mass/volume)Ordered By: Laurence Mccrary on 04-21-2024 Creatinine [Mass/Vol] 0.60 mg/dL Low 0.70-1.20 [facility] Serum globulin measurementOr dered By: Laurence Mccrary on 04-21-2024 Globulin (S) [Mass/Vol] 3.2 g/dL 2.2-4.2 [facility] Serum glucose measurement (m ass/volume)Ordered By: Laurence Mccrary on 04-21-2024 Glucose [Mass/Vol] 92 mg/dL 70-99 [facility] Serum or plasma alanine barth otransferase (ALT) measurementOrdered By: Laurence Mccrary on 04-21-2024 ALT [Catalytic activity/Vol] 19 U/L <35 [facility] Serum or plasma albumin janette urement (mass/volume)Ordered By: Laurence Mccrary on 04-21-2024 Albumin [Mass/Vol] 4.1 g/dL 3.5-5.0 [facility] Serum or plasma albumin/glob ulin mass ratioOrdered By: Laurence Mccrary on 04-21-2024 Albumin/Globulin [Mass ratio] 1.3 {ratio} 0.9-2.4 [facility] Serum or plasma alkaline luz marina sphatase measurementOrdered By: Laurence Mccrary on 04-21-2024 ALP [Catalytic activity/Vol] 74 U/L 35-104 [facility] Serum or plasma anion gap de termination (moles/volume)Ordered By: Laurence Mccrary on 04-21-2024 Anion gap [Moles/Vol] 9 mmol/L 5-15 [facility] Serum or plasma calcium janette urement (mass/volume)Ordered By: Laurence Mccrary on 04-21-2024 Calcium [Mass/Vol] 9.3 mg/dL 7.6-11.0 [facility] Serum or plasma potassium me asurementOrdered By: Laurence Mccrary on 04-21-2024 Potassium [Moles/Vol] 4.3 mmol/L 3.3-5.1 [facility] Serum or plasma sodium measu rement (moles/volume)Ordered By: Laurence Mccrary on 04-21-2024 Sodium [Moles/Vol] 138 mmol/L 133-145 [facility] Serum or plasma urea nitroge n measurement (mass/volume)Ordered By: Laurence Mccrary on 04-21-2024 Urea nitrogen [Mass/Vol] 8 mg/dL 4-19 [facility] Total proteinOrdered By: Lorraine Mccrary on 04-21-2024 Protein [Mass/Vol] 7.3 g/dL 5.9-8.4 [facility] HCG ( test) QlOrder ed By: Peggy Sanchez on 04-20-2024 Human Chorionic Gonadotropin, Quant 174 mIU/mL High <9 [facility] Comment on above: Gestational Age0.2-1 Week: 5-50 mIU/mL1-2 Weeks: 50-500 mIU/mL2-3 Weeks: 100-5000 mIU/mL3-4 Weeks: 500-10,000 mIU/mL4-5 Weeks:1000-50,000 mIU/mL5-6 Weeks: 10,000-100,000 mIU/mL6-8 Weeks: 15,000-200,000 mIU/mL2-3 Months:10,000-100,000 mIU/mL Serum human chorionic gonado tropin detection for pregnancyOrdered By: Peggy Sanchez on 04-20-2024 HCG ( test) Ql 174 mIU/mL High <9 [facility] Comment on above: Gestational Age0.2-1 Week: 5-50 mIU/mL1-2 Weeks: 50-500 mIU/mL2-3 Weeks: 100-5000 mIU/mL3-4 Weeks: 500-10,000 mIU/mL4-5 Weeks:1000-50,000 mIU/mL5-6 Weeks: 10,000-100,000 mIU/mL6-8 Weeks: 15,000-200,000 mIU/mL2-3 Months:10,000-100,000 mIU/mL hCG Titer Quant., Serumon HCG QUANT. 174 mIU/mL High <9 non-preg [facility] Comment on above: Result Comment: Gest ational Age0.2-1 Week: 5-50 mIU/mL1-2 Weeks: 50-500 mIU/mL2-3 Weeks: 100-5000 mIU/mL3-4 Weeks: 500-10,000 mIU/mL4-5 Weeks:1000-50,000 mIU/mL5-6 Weeks: 10,000-100,000 mIU/mL6-8 Weeks: 15,000-200,000 mIU/mL2-3 Months:10,000-100,000 mIU/mL Performed By: #### L 700.8000 ####[facility] [address] [place], [place], [id number] HCG ( test) QlOrder ed By: Peggy Sanchez on 04-18-2024 Human Chorionic Gonadotropin, Quant 67 mIU/mL High <9 [facility] Comment on above: Gestational Age0.2-1 Week: 5-50 mIU/mL1-2 Weeks: 50-500 mIU/mL2-3 Weeks: 100-5000 mIU/mL3-4 Weeks: 500-10,000 mIU/mL4-5 Weeks:1000-50,000 mIU/mL5-6 Weeks: 10,000-100,000 mIU/mL6-8 Weeks: 15,000-200,000 mIU/mL2-3 Months:10,000-100,000 mIU/mL Serum human chorionic gonado tropin detection for pregnancyOrdered By: Peggy Sanchez on 04-18-2024 HCG ( test) Ql 67 mIU/mL High <9 [facility] Comment on above: Gestational Age0.2-1 Week: 5-50 mIU/mL1-2 Weeks: 50-500 mIU/mL2-3 Weeks: 100-5000 mIU/mL3-4 Weeks: 500-10,000 mIU/mL4-5 Weeks:1000-50,000 mIU/mL5-6 Weeks: 10,000-100,000 mIU/mL6-8 Weeks: 15,000-200,000 mIU/mL2-3 Months:10,000-100,000 mIU/mL hCG Titer Quant., Serumon HCG QUANT. 67 mIU/mL High <9 non-preg [facility] Comment on above: Result Comment: Gest ational Age0.2-1 Week: 5-50 mIU/mL1-2 Weeks: 50-500 mIU/mL2-3 Weeks: 100-5000 mIU/mL3-4 Weeks: 500-10,000 mIU/mL4-5 Weeks:1000-50,000 mIU/mL5-6 Weeks: 10,000-100,000 mIU/mL6-8 Weeks: 15,000-200,000 mIU/mL2-3 Months:10,000-100,000 mIU/mL Performed By: #### L 700.8000 ####[facility] [address] [place], [address] PREG SERUM QUANTon HCG QUANTITATIVE 2 mIU/mL Normal 0 - 6 [facility] Comment on above: Result Comment: Refe rence Range: Male: <5 Female: Non: <5 1 - 7 days : 5 - 50 1 - 2 weeks: 50 - 500 2 - 3 weeks: 100 - 5000 3 - 4 weeks: 500 - 10,000 4 - 5 weeks: 1000 - 50,000 5 - 6 weeks: 10,000 - 100,000 6 - 8 weeks: 15,000 - 200,000 2 - 3 months: 10,000 - 100,000 2ND TRIMESTER 3000-50,000 3RD TRIMESTER 1000-50,000 Performed By: #### 2 [id number] #### [facility],[address] [place] [address] PREG SERUM QUANTon HCG QUANTITATIVE 28 mIU/mL High 0 - 6 [facility] Comment on above: Result Comment: Refe rence Range: Male: <5 Female: Non: <5 1 - 7 days : 5 - 50 1 - 2 weeks: 50 - 500 2 - 3 weeks: 100 - 5000 3 - 4 weeks: 500 - 10,000 4 - 5 weeks: 1000 - 50,000 5 - 6 weeks: 10,000 - 100,000 6 - 8 weeks: 15,000 - 200,000 2 - 3 months: 10,000 - 100,000 2ND TRIMESTER 3000-50,000 3RD TRIMESTER 1000-50,000 Performed By: #### 2 [id number] #### [facility],[address] [place] [address] HCG ( test) QlOrder ed By: Peggy Sanchez on 03-13-2024 Human Chorionic Gonadotropin, Quant 36 mIU/mL High <4 [facility] Comment on above: hCG levels with Gest ational AgeGestational Age hCG mIU/mL (IU/L)0.2 - 1 week 5 - 501-2 weeks 50 - 5002-3 weeks 100 - 91736-6 weeks 500 - 161222-1 weeks 1000 - 793183-5 weeks 49157 - 100,0006-8 weeks 73514 - 200,0002-3 months 62220 - 100,000 [employer] Office Visit Reporton 03-13-2024 Credit Relationship [employer] Office Visit Report Normal [facility] Serum human chorionic gonado tropin detection for pregnancyOrdered By: Peggy Sanchez on 03-13-2024 HCG ( test) Ql 36 mIU/mL High <4 [facility] Comment on above: hCG levels with Gest ational AgeGestational Age hCG mIU/mL (IU/L)0.2 - 1 week 5 - 501-2 weeks 50 - 5002-3 weeks 100 - 90526-1 weeks 500 - 511821-9 weeks 1000 - 727648-3 weeks 28964 - 100,0006-8 weeks 08405 - 200,0002-3 months 83957 - 100,000 hCG Titer Quant., Serumon HCG QUANT. 36 mIU/mL High 1-3 [facility] Comment on above: Result Comment: hCG levels with Gestational AgeGestational Age hCG mIU/mL (IU/L)0.2 - 1 week 5 - 501-2 weeks 50 - 5002-3 weeks 100 - 41636-7 weeks 500 - 935444-7 weeks 1000 - 645546-8 weeks 21464 - 100,0006-8 weeks 40361 - 200,0002-3 months 09518 - 100,000 Performed By: #### L 700.8000 ####[facility] [address] [place], [address] 36on 03-10-2024 36 Normal [facility] Absolute lymphocyte countOrd ered By: Fernando Al on 03-10-2024 Lymphocytes Auto (Unsp spec) [#/Vol] 2.09 10*3/uL 0.83-4.51 [facility] Absolute neutrophil countOrd ered By: Fernando Al on 03-10-2024 Neutrophils (Bld) [#/Vol] 4.6 10*3/uL 2.0-7.7 [facility] Albumin to globulin ratioOrd ered By: Fernando Al on 03-10-2024 Albumin/Globulin [Mass ratio] 0.9 {ratio} 0.9-2.4 [facility] Automated lymphocyte count a s percentage of total leukocytesOrdered By: Fernando Al on 03-10-2024 Lymphocytes/100 WBC Auto (Unsp spec) 29.2 % 19-41 [facility] Basophil percentageOrdered B y: Fernando Al on 03-10-2024 Basophils/100 WBC (Bld) 0.4 % 0-1 [facility] Bilirubin Test strip Ql (U)O rdered By: Fernando Al on 03-10-2024 Bilirubin Ql (U) Negative Negative [facility] Bilirubin, totalOrdered By: Fernando Al on 03-10-2024 Bilirubin [Mass/Vol] 0.60 mg/dL 0.20-1.00 [facility] Comment on above: For patients on eltr ombopag therapy, use of Dimension [place] TBIL is not recommended. Blood urea nitrogen (BUN)/cr eatinine ratioOrdered By: Fernando Al on 03-10-2024 Urea nitrogen/Creatinine [Mass ratio] 11.4 mg/mg 10-20 [facility] CBC W/Diff, Automatedon 02-22 Absolute Lymph 2.09 X10 3/uL Normal 0.83-4.51 [facility] Comment on above: Performed By: #### L 100.0100, L500.4050 ####[facility] [address] [place], [address] Absolute Neut 4.6 X10 3/uL Normal 2.0-7.7 [facility] Comment on above: Performed By: #### L 100.0100, L500.4050 ####[facility] [address] [place], [address] Basophils/100 WBC (Bld) 0.4 % Normal 0-1 [facility] Comment on above: Performed By: #### L 100.0100, L500.4050 ####[facility] [address] [place], [address] Eosinophils/100 WBC (Bld) 0.8 % Normal 0-5 [facility] Comment on above: Performed By: #### L 100.0100, L500.4050 ####[facility] [address] [place], [address] Erythrocyte distribution width (RBC) [Ratio] 17.2 % High 11.6-14.6 [facility] Comment on above: Performed By: #### L 100.0100, L500.4050 ####[facility] [address] [place], [address] Hematocrit (Bld) [Volume fraction] 40.7 % Normal 37-47 [facility] Comment on above: Performed By: #### L 100.0100, L500.4050 ####[facility] [address] [place], [address] Hemoglobin (Bld) [Mass/Vol] 12.4 g/dL Normal 12.0-15.0 [facility] Comment on above: Performed By: #### L 100.0100, L500.4050 ####[facility] [address] [place], [address] IG% 0.300 Normal 0.0-0.9 [facility] Comment on above: Result Comment: IG% - Immature Granulocytes (promyelocytes, myelocytes andmetamyelocytes) > 1% indicates that a LEFT SHIFT is Present. Performed By: #### L 100.0100, L500.4050 ####[facility] [address] [place], [address] Lymphocytes/100 WBC (Bld) 29.2 % Normal 19-41 [facility] Comment on above: Performed By: #### L 100.0100, L500.4050 ####[facility] [address] [place], [address] MCH (RBC) [Entitic mass] 20.8 pg Low 27.0-32.0 [facility] Comment on above: Performed By: #### L 100.0100, L500.4050 ####[facility] [address] [place], [address] MCHC (RBC) [Mass/Vol] 30.5 g/dL Low 32-36 [facility] Comment on above: Performed By: #### L 100.0100, L500.4050 ####[facility] [address] [place], [address] MCV (RBC) [Entitic vol] 68.2 fL Low 81-99 [facility] Comment on above: Performed By: #### L 100.0100, L500.4050 ####[facility] [address] [place], [address] Monocytes/100 WBC (Bld) 5.6 % Normal 0-10 [facility] Comment on above: Performed By: #### L 100.0100, L500.4050 ####[facility] [address] [place], [address] Neutrophils/100 WBC (Bld) 63.7 % Normal 47-70 [facility] Comment on above: Performed By: #### L 100.0100, L500.4050 ####[facility] [address] [place], [address] Nucleated RBC (Bld) [#/Vol] 0 10*3/uL Normal 0-5 [facility] Comment on above: Performed By: #### L 100.0100, L500.4050 ####[facility] [address] [place], [address] Platelet mean volume (Bld) [Entitic vol] 11.3 fL Normal 6.2-12.0 [facility] Comment on above: Performed By: #### L 100.0100, L500.4050 ####[facility] [address] [place], [address] Platelets (Bld) [#/Vol] 459 10*3/uL High 150-450 [facility] Comment on above: Performed By: #### L 100.0100, L500.4050 ####[facility] [address] [place], [address] RBC (Bld) [#/Vol] 5.97 10*6/uL High 4.2-5.4 [facility] Comment on above: Performed By: #### L 100.0100, L500.4050 ####[facility] [address] [place], [address] RDW SD 39.2 fl Normal 35.1-43.9 [facility] Comment on above: Performed By: #### L 100.0100, L500.4050 ####[facility] [address] [place], [address] WBC (Bld) [#/Vol] 7.2 10*3/uL Normal 4.4-11.0 [facility] Comment on above: Performed By: #### L 100.0100, L500.4050 ####[facility] [address] [place], [address] Carbon dioxide measurementOr dered By: Fernando Al on 03-10-2024 CO2 [Moles/Vol] 28.0 mmol/L 21.0-32.0 [facility] Chloride measurementOrdered By: Fernando Al on 03-10-2024 Chloride [Moles/Vol] 103 mmol/L 98-107 [facility] Comprehensive Metabolic Prof ilon 03-10-2024 Albumin [Mass/Vol] 4.0 g/dL Normal 3.2-5.0 [facility] Comment on above: Performed By: #### L 100.0100, L500.4050 ####[facility] [address] [place], [address] Albumin/Globulin [Mass ratio] 0.9 {ratio} Normal 0.9-2.4 [facility] Comment on above: Performed By: #### L 100.0100, L500.4050 ####[facility] [address] [place], [address] ALK P 87 U/L Normal 45-117 [facility] Comment on above: Performed By: #### L 100.0100, L500.4050 ####[facility] [address] [place], [address] ALT [Catalytic activity/Vol] 31 U/L Normal 13-56 [facility] Comment on above: Performed By: #### L 100.0100, L500.4050 ####[facility] [address] [place], [address] AST [Catalytic activity/Vol] 22 U/L Normal 15-37 [facility] Comment on above: Performed By: #### L 100.0100, L500.4050 ####[facility] [address] [place], [address] Bilirubin [Mass/Vol] 0.60 mg/dL Normal 0.20-1.00 [facility] Comment on above: Result Comment: For patients on eltrombopag therapy, use of Dimension [place] TBIL is not recommended. Performed By: #### L 100.0100, L500.4050 ####[facility] [address] [place], [address] BUN/CRE 11.4 RATIO Normal 10-20 [facility] Comment on above: Performed By: #### L 100.0100, L500.4050 ####[facility] [address] [place], [address] CA,Total 9.4 mg/dL Normal 8.5-10.1 [facility] Comment on above: Performed By: #### L 100.0100, L500.4050 ####[facility] [address] [place], [address] Chloride [Moles/Vol] 103 mmol/L Normal 98-107 [facility] Comment on above: Performed By: #### L 100.0100, L500.4050 ####[facility] [address] [place], [address] CO2 [Moles/Vol] 28.0 mmol/L Normal 21.0-32.0 [facility] Comment on above: Performed By: #### L 100.0100, L500.4050 ####[facility] [address] [place], [address] Creatinine [Mass/Vol] 0.70 mg/dL Normal 0.55-1.02 [facility] Comment on above: Result Comment: The validity of the calculated GFR GFRAA in patients over70 years has not been determined. Clinical correlation isessential. Performed By: #### L 100.0100, L500.4050 ####[facility] [address] [place], [address] ECRCL 157.00 ml/min Normal [facility] Comment on above: Performed By: #### L 100.0100, L500.4050 ####[facility] [address] [place], [address] EST GFR - AA 127 mL/min Normal >60 [facility] Comment on above: Result Comment: Afri can [place] GFR Calc Performed By: #### L 100.0100, L500.4050 ####[facility] [address] [place], [address] GAP 6 Normal 5-15 [facility] Comment on above: Performed By: #### L 100.0100, L500.4050 ####[facility] [address] [place], [address] GFR/1.73 sq M.predicted among non-blacks MDRD (S/P/Bld) [Vol rate/Area] 105 mL/min/{1.73_m2} Normal >60 [facility] Comment on above: Result Comment: Non- GFR Calc Performed By: #### L 100.0100, L500.4050 ####[facility] [address] [place], [address] Globulin (S) [Mass/Vol] 4.4 g/dL High 2.2-4.2 [facility] Comment on above: Performed By: #### L 100.0100, L500.4050 ####[facility] [address] [place], [address] Glucose [Mass/Vol] 94 mg/dL Normal 74-106 [facility] Comment on above: Performed By: #### L 100.0100, L500.4050 ####[facility] [address] [place], [address] Potassium [Moles/Vol] 3.5 mmol/L Normal 3.5-5.1 [facility] Comment on above: Performed By: #### L 100.0100, L500.4050 ####[facility] [address] [place], [address] Sodium [Moles/Vol] 137 mmol/L Normal 136-145 [facility] Comment on above: Performed By: #### L 100.0100, L500.4050 ####[facility] [address] [place], [address] T PROT 8.4 g/dL High 6.4-8.2 [facility] Comment on above: Performed By: #### L 100.0100, L500.4050 ####[facility] [address] [place], [address] Urea nitrogen [Mass/Vol] 8 mg/dL Normal 7-18 [facility] Comment on above: Performed By: #### L 100.0100, L500.4050 ####[facility] [address] [place], [address] Emergency Department Summary on 03-10-2024 Emergency Department Summary Normal [facility] Eosinophil percentageOrdered By: Fernando Al on 03-10-2024 Eosinophils/100 WBC (Bld) 0.8 % 0-5 [facility] Epithelial cells.squamous LM Ql (Urine sed)Ordered By: Fernando Al on 03-10-2024 Epithelial cells.squamous LM.HPF (Urine sed) [#/Area] 5 /[HPF] 5-10 [facility] Erythrocyte distribution wid th ratioOrdered By: Fernando Al on 03-10-2024 Erythrocyte distribution width (RBC) [Ratio] 17.2 % High 11.6-14.6 [facility] Erythrocyte distribution wid th standard deviationOrdered By: Fernando Al on 03-10-2024 Erythrocyte distribution width (RBC) [Entitic vol] 39.2 fL 35.1-43.9 [facility] Erythrocyte distribution width (RBC) [Ratio] 39.2 fl 35.1-43.9 [facility] Estimated glomerular filtrat ion rate (GFR) AmericanOrdered By: Fernando Al on 03-10-2024 Estimated GFR (MDRD) Amer 127 mL/min >60 [facility] Comment on above: GFR Calc Estimation of creatinine scar aranceOrdered By: Fernando Al on 03-10-2024 Estimated Creatinine Clearance Calc 157.00 ml/min [facility] Fine Granular Casts LM.LPF ( Urine sed) [#/Area]Ordered By: Fernando Al on 03-10-2024 Urine Fine Granular Casts 0-5 SEEN /lpf 0-5 [facility] Glomerular filtration rate ( GFR) estimationOrdered By: Fernando Al on 03-10-2024 Estimated GFR (MDRD) Non-Af Amer 105 mL/min >60 [facility] Comment on above: Non- GFR Calc GFR/1.73 sq M.predicted among non-blacks MDRD (S/P/Bld) [Vol rate/Area] 105 mL/min/{1.73_m2} >60 [facility] Comment on above: Non- GFR Calc Glucose Ql (U)Ordered By: Claudio Al on 03-10-2024 Urine Glucose (UA) Normal mg/dl Normal [facility] Glucose measurementOrdered B y: Fernando Al on 03-10-2024 Glucose [Mass/Vol] 94 mg/dL 74-106 [facility] Hematocrit Auto (Bld) [Volum e fraction]Ordered By: Fernando Al on 03-10-2024 Hematocrit (Bld) [Volume fraction] 40.7 % 37-47 [facility] Hemoglobin measurementOrdere d By: Fernando Al on 03-10-2024 Hemoglobin (Bld) [Mass/Vol] 12.4 g/dL 12.0-15.0 [facility] Immature granulocytes/100 WB C Auto (Bld)Ordered By: Fernando Al on 03-10-2024 Immature granulocytes/100 WBC (Bld) 0.300 % 0.0-0.9 [facility] Comment on above: IG% - Immature Granu locytes (promyelocytes, myelocytes and metamyelocytes) > 1% indicates that a LEFT SHIFT is Present. Ketones Test strip Ql (U)Ord ered By: Fernando Al on 03-10-2024 Ketones Ql (U) Negative Negative [facility] Laboratory - Chemistry and C hemistry - challengeOrdered By: Fernando Al on 03-10-2024 AST [Catalytic activity/Vol] 22 U/L 15-37 [facility] Lymphocytes Auto (Unsp spec) [#/Vol]Ordered By: Fernando Al on 03-10-2024 Lymphocytes (Bld) [#/Vol] 2.09 10*3/uL 0.83-4.51 [facility] Lymphocytes/100 WBC Auto (Un sp spec)Ordered By: Fernando Al on 03-10-2024 Lymphocytes/100 WBC (Bld) 29.2 % 19-41 [facility] MCV (mean corpuscular volume ) determinationOrdered By: Fernando Al on 03-10-2024 MCV (RBC) [Entitic vol] 68.2 fL Low 81-99 [facility] Mean corpuscular hemoglobin (MCH) determinationOrdered By: Fernando Al on 03-10-2024 MCH (RBC) [Entitic mass] 20.8 pg Low 27.0-32.0 [facility] Mean corpuscular hemoglobin concentration (MCHC) determinationOrdered By: Fernando Al on 03-10-2024 MCHC (RBC) [Mass/Vol] 30.5 g/dL Low 32-36 [facility] Mean platelet volume determi nationOrdered By: Fernando Al on 03-10-2024 Platelet mean volume (Bld) [Entitic vol] 11.3 fL 6.2-12.0 [facility] Microscopic analysis of urin e for red blood cells (RBC)Ordered By: Fernando Al on 03-10-2024 Microscopic analysis of urine for red blood cells (RBC) 0 SEEN /hpf 0-5 [facility] Urine RBC 0 SEEN /hpf 0-5 [facility] Monocyte percentageOrdered B y: Fernando Al on 03-10-2024 Monocytes/100 WBC (Bld) 5.6 % 0-10 [facility] Mucus LM Ql (Urine sed)Order ed By: Fernando Al on 03-10-2024 Mucus Ql (Urine sed) 0 SEEN /hpf [facility] Neutrophil percentageOrdered By: Fernando Al on 03-10-2024 Neutrophils/100 WBC (Bld) 63.7 % 47-70 [facility] Nitrite Test strip Ql (U)Ord ered By: Fernando Al on 03-10-2024 Nitrite Ql (U) Negative Negative [facility] Nucleated red blood cell per centageOrdered By: Fernando Al on 03-10-2024 Nucleated RBC/100 WBC (Bld) [Ratio] 0 % 0-5 [facility] Platelet countOrdered By: Claudio Al on 03-10-2024 Platelets (Bld) [#/Vol] 459 10*3/uL High 150-450 [facility] Potassium measurementOrdered By: Fernando Al on 03-10-2024 Potassium [Moles/Vol] 3.5 mmol/L 3.5-5.1 [facility] Protein Test strip Ql (U)Ord ered By: Fernando Al on 03-10-2024 Protein Ql (U) 15 mg/dl High Negative [facility] RBC Auto (Bld) [#/Vol]Ordere d By: Fernando Al on 03-10-2024 RBC (Bld) [#/Vol] 5.97 10*6/uL High 4.2-5.4 [facility] Serum anion gap measurementO rdered By: Fernando Al on 03-10-2024 Anion gap [Moles/Vol] 6 mmol/L 5-15 [facility] Serum globulin measurementOr dered By: Fernando Al on 03-10-2024 Globulin (S) [Mass/Vol] 4.4 g/dL High 2.2-4.2 [facility] Serum or plasma alanine barth otransferase (ALT) measurementOrdered By: Fernando Al on 03-10-2024 ALT [Catalytic activity/Vol] 31 U/L 13-56 [facility] Serum or plasma albumin janette urement (mass/volume)Ordered By: Fernando Al on 03-10-2024 Albumin [Mass/Vol] 4.0 g/dL 3.2-5.0 [facility] Serum or plasma alkaline luz marina sphatase measurementOrdered By: Fernando Al on 03-10-2024 ALP [Catalytic activity/Vol] 87 U/L 45-117 [facility] Serum or plasma calcium janette urement (mass/volume)Ordered By: Fernando Al on 03-10-2024 Calcium [Mass/Vol] 9.4 mg/dL 8.5-10.1 [facility] Serum or plasma creatinine m easurement (mass/volume)Ordered By: Fernando Al on 03-10-2024 Creatinine [Mass/Vol] 0.70 mg/dL 0.55-1.02 [facility] Comment on above: The validity of the calculated GFR & GFRAA in patients over 70 years has not been determined. Clinical correlation is essential. Serum or plasma urea nitroge n measurement (mass/volume)Ordered By: Fernando Al on 03-10-2024 Urea nitrogen [Mass/Vol] 8 mg/dL 7-18 [facility] Sodium levelOrdered By: Sergio Al on 03-10-2024 Sodium [Moles/Vol] 137 mmol/L 136-145 [facility] Squamous epithelial cells de tection in urine sediment by light microscopyOrdered By: Fernando Al on 03-10-2024 Epithelial cells.squamous LM Ql (Urine sed) 5-10 SEEN /hpf 5-10 [facility] Total proteinOrdered By: Aditya Al on 03-10-2024 Protein [Mass/Vol] 8.4 g/dL High 6.4-8.2 [facility] Urinalysis, Completeon 03-10 CAST,FINE GRAN 0-5 SEEN Normal 0-5 [facility] Comment on above: Order Comment: NOLVIA CTOR TO SPECIFY Performed By: #### L 400.0001 ####[facility] [address] [place], [address] BACTERIA 1+ /hpf Normal None Seen [facility] Comment on above: Order Comment: NOLVIA CTOR TO SPECIFY Performed By: #### L 400.0001 ####[facility] [address] [place], [address] EPI,SQUAMOUS 5-10 SEEN Normal 5-10 [facility] Comment on above: Order Comment: NOLVIA CTOR TO SPECIFY Performed By: #### L 400.0001 ####[facility] [address] [place], [address] WBC 0-5 SEEN Normal 0-5 [facility] Comment on above: Order Comment: NOLVIA CTOR TO SPECIFY Performed By: #### L 400.0001 ####[facility] [address] [place], [address] Mucus Ql (Urine sed) 0 SEEN Normal [facility] Comment on above: Order Comment: NOLVIA CTOR TO SPECIFY Performed By: #### L 400.0001 ####[facility] [address] [place], [address] RBC 0 SEEN Normal 0-5 [facility] Comment on above: Order Comment: NOLVIA CTOR TO SPECIFY Performed By: #### L 400.0001 ####[facility] [address] [place], [address] Urine blood detectionOrdered By: Fernando lA on 03-10-2024 Urine Occult Blood Negative Negative [facility] Urine clarityOrdered By: Aditya Al on 03-10-2024 Clarity (U) Sl. Cloudy Clear [facility] Urine color determinationOrd ered By: Fernando Al on 03-10-2024 Color (U) Yellow Yellow [facility] Urine glucose detectionOrder ed By: Fernando Al on 03-10-2024 Glucose Ql (U) Normal mg/dl Normal [facility] Urine leukocyte esterase det ection by dipstickOrdered By: Fernando Al on 03-10-2024 Leukocyte esterase Test strip Ql (U) 25 /ul High Negative [facility] Urine pHOrdered By: Fernando ham on 03-10-2024 pH (U) 7.0 [pH] 5.0 - 8.0 [facility] Urine sediment bacteria coun t by microscopy (number/high power field)Ordered By: Fernando Al on 03-10-2024 Bacteria LM.HPF (Urine sed) [#/Area] 1 /[HPF] None Seen [facility] Urine sediment fine granular cast count by microscopy (number/low power field)Ordered By: Fernando Al on 03-10-2024 Fine Granular Casts LM.LPF (Urine sed) [#/Area] 0-5 SEEN /lpf 0-5 [facility] Urine specific gravity measu rementOrdered By: Fernando Al on 03-10-2024 Specific gravity (U) [Rel density] 1.010 1.002-1.030 [facility] Urine urobilinogen measureme ntOrdered By: Fernando Al on 03-10-2024 Urobilinogen Ql (U) 4 mg/dl High Normal [facility] Urobilinogen Ql (U)Ordered B y: Fernando Al on 03-10-2024 Urobilinogen (U) [Mass/Vol] 4 mg/dL High Normal [facility] White blood cell (WBC) count Ordered By: Fernando Al on 03-10-2024 WBC (Bld) [#/Vol] 7.2 10*3/uL 4.4-11.0 [facility] White blood cell countOrdere d By: Fernando Al on 03-10-2024 Urine WBC 0-5 SEEN /hpf 0-5 [facility] White blood cell count 0-5 SEEN /hpf 0-5 [facility] 36on 03-09-2024 36 Script / face sheet / labs faxed to Scott @ [phone], confirmation received. Normal [facility] HCG ( test) QlOrder ed By: Silviano Daley on 03-09-2024 Human Chorionic Gonadotropin, Quant 46 mIU/mL High <4 [facility] Comment on above: hCG levels with Gest ational AgeGestational Age hCG mIU/mL (IU/L)0.2 - 1 week 5 - 501-2 weeks 50 - 5002-3 weeks 100 - 95973-0 weeks 500 - 996735-4 weeks 1000 - 611903-4 weeks 05188 - 100,0006-8 weeks 97090 - 200,0002-3 months 16230 - 100,000 Serum human chorionic gonado tropin detection for pregnancyOrdered By: Silviano Daley on 03-09-2024 HCG ( test) Ql 46 mIU/mL High <4 [facility] Comment on above: hCG levels with Gest ational AgeGestational Age hCG mIU/mL (IU/L)0.2 - 1 week 5 - 501-2 weeks 50 - 5002-3 weeks 100 - 72984-5 weeks 500 - 512514-1 weeks 1000 - 812040-0 weeks 99348 - 100,0006-8 weeks 27848 - 200,0002-3 months 75062 - 100,000 hCG Titer Quant., Serumon HCG QUANT. 46 mIU/mL High 1-3 [facility] Comment on above: Result Comment: hCG levels with Gestational AgeGestational Age hCG mIU/mL (IU/L)0.2 - 1 week 5 - 501-2 weeks 50 - 5002-3 weeks 100 - 02184-8 weeks 500 - 725793-9 weeks 1000 - 940434-6 weeks 48118 - 100,0006-8 weeks 67578 - 200,0002-3 months 65120 - 100,000 Performed By: #### L 700.8000 ####[facility] [address] [place], [address] 36on 03-07-2024 36 PA submitted via covermymeds. Normal [facility] 36 Changed infusions to Venofer due to facility preference. Normal [facility] 36on 03-06-2024 36 Yes you may assist t o arrange iron infusions closer to patient's home to help patient be compliant with orders. Thank you. Normal [facility] 36 Normal [facility] Anticardiolipin IgG, IgMon 0 03-06-2024 ANTICARDIO IgG < 9 Normal 0-14 [facility] Comment on above: Result Comment: Nega tive: <15 Indeterminate: 15 - 20 Low-Med Positive: >20 - 80 High Positive: >80 Performed By: #### L 700.8000, L3100.8410, L3410.2000, L4500.0100, L100.0500 ####[facility] [address] [place], [place], [phone] Anticardio.IgM < 9 Normal 0-12 [facility] Comment on above: Result Comment: Nega tive: <13 Indeterminate: 13 - 20 Low-Med Positive: >20 - 80 High Positive: >80Performed at: [facility] [address] [id number] Director: Ayo Burns MD, Phone: [phone] at: [facility] [address] [id number] Director: Xavier Salas PhD, Phone: [phone] Performed By: #### L 700.8000, L3100.8410, L3410.2000, L4500.0100, L100.0500 ####[facility] [address] [place], [place], [phone] Beta-2 Glycoprot IgG, A, 03-06-2024 B2 GLYCO I IGA <9 Normal 0-25 [facility] Comment on above: Result Comment: Resu lt Units: GPI IgA unitsThe reference interval reflects a 3SD or 99th percentileinterval, which is thought to represent a potentiallyclinically significant result in accordance with theInternational Consensus Statement on the classificationcriteria for definitive antiphospholipid syndrome (APS). JThromb Haem 2006;4:295-306. Performed By: #### L 700.8000, L3100.8410, L3410.2000, L4500.0100, L100.0500 ####[facility] [address] [place], [place], [phone]) B2 GLYCO I IGG <9 Normal 0-20 [facility] Comment on above: Result Comment: Resu lt Units: GPI IgG unitsThe reference interval reflects a 3SD or 99th percentileinterval, which is thought to represent a potentiallyclinically significant result in accordance with theInternational Consensus Statement on the classificationcriteria for definitive antiphospholipid syndrome (APS). JThromb Haem 2006;4:295-306. Performed By: #### L 700.8000, L3100.8410, L3410.2000, L4500.0100, L100.0500 ####[facility] [address] [place], [address] B2 GLYCO I IGM <9 Normal 0-32 [facility] Comment on above: Result Comment: Resu lt Units: GPI IgM unitsThe reference interval reflects a 3SD or 99th percentileinterval, which is thought to represent a potentiallyclinically significant result in accordance with theInternational Consensus Statement on the classificationcriteria for definitive antiphospholipid syndrome (APS). JThromb Haem 2006;4:295-306. Performed By: #### L 700.8000, L3100.8410, L3410.2000, L4500.0100, L100.0500 ####[facility] [address] [place], [address] Lupus Anticoagulant Compon 0 - aPTT Coag (Bld) [Time] 37.5 s Normal 0.0-43.5 [facility] Comment on above: Performed By: #### L 700.8000, L3100.8410, L3410.2000, L4500.0100, L100.0500 ####[facility] [address] [place], [address] DILUTE PT (dPT) 30.2 sec Normal 0.0-47.6 [facility] Comment on above: Performed By: #### L 700.8000, L3100.8410, L3410.2000, L4500.0100, L100.0500 ####[facility] [address] [place], [address] dPT Conf. Ratio 0.93 Ratio Normal 0.00-1.34 [facility] Comment on above: Performed By: #### L 700.8000, L3100.8410, L3410.2000, L4500.0100, L100.0500 ####[facility] [address] [place], [address] DRVVT 27.5 sec Normal 0.0-47.0 [facility] Comment on above: Performed By: #### L 700.8000, L3100.8410, L3410.2000, L4500.0100, L100.0500 ####[facility] [address] [place], [address] Interpretation Comment: Normal . [facility] Comment on above: Result Comment: No l upus anticoagulant was detected. Performed By: #### L 700.8000, L3100.8410, L3410.2000, L4500.0100, L100.0500 ####[facility] [address] [place], [address] THROMBIN TIME 19.5 sec Normal 0.0-23.0 [facility] Comment on above: Performed By: #### L 700.8000, L3100.8410, L3410.2000, L4500.0100, L100.0500 ####[facility] [address] [place], [address] 36on 03-04-2024 36 Pt noted with chronically low iron, RD recommending IV iron. Pt has been taking 4000 int units of vitamin d dialy, RD recommending increasing to 50,000 int units weekly for improvement in levels. Pharmacy pending Normal [facility] 36 Normal [facility] Beta 2 glycoprotein 1 IgA Ql (S)Ordered By: Peggy Sanchez on 03-03-2024 Pbma-wfrh-0-Glycoprotei n I IgA Ab <9 0-25 [facility] Comment on above: Result Units: GPI Ig A unitsThe reference interval reflects a 3SD or 99th percentileinterval, which is thought to represent a potentiallyclinically significant result in accordance with theInternational Consensus Statement on the classificationcriteria for definitive antiphospholipid syndrome (APS). JThromb Haem 2006;4:295-306. Beta 2 glycoprotein 1 IgG Ql (S)Ordered By: Peggy Sanchez on 03-03-2024 Bpat-cqzf-9-Glycoprotei n I IgG Ab <9 0-20 [facility] Comment on above: Result Units: GPI Ig G unitsThe reference interval reflects a 3SD or 99th percentileinterval, which is thought to represent a potentiallyclinically significant result in accordance with theInternational Consensus Statement on the classificationcriteria for definitive antiphospholipid syndrome (APS). JThromb Haem 2006;4:295-306. Beta 2 glycoprotein 1 IgM Ql (S)Ordered By: Peggy Sanchez on 03-03-2024 Lrse-lfxx-1-Glycoprotei n I IgM Ab <9 0-32 [facility] Comment on above: Result Units: GPI Ig M unitsThe reference interval reflects a 3SD or 99th percentileinterval, which is thought to represent a potentiallyclinically significant result in accordance with theInternational Consensus Statement on the classificationcriteria for definitive antiphospholipid syndrome (APS). JThromb Haem 2006;4:295-306. CBC-Complete Blood Cnt No Miri tierneyon 03-03-2024 Erythrocyte distribution width (RBC) [Ratio] 15.9 % High 11.6-14.6 [facility] Comment on above: Performed By: #### L 700.8000, L3100.8410, L3410.2000, L4500.0100, L100.0500 ####[facility] [address] [place], [address] Hematocrit (Bld) [Volume fraction] 37.8 % Normal 37-47 [facility] Comment on above: Performed By: #### L 700.8000, L3100.8410, L3410.2000, L4500.0100, L100.0500 ####[facility] [address] [place], [address] Hemoglobin (Bld) [Mass/Vol] 11.6 g/dL Low 12.0-15.0 [facility] Comment on above: Performed By: #### L 700.8000, L3100.8410, L3410.2000, L4500.0100, L100.0500 ####[facility] [address] [place], [address] MCH (RBC) [Entitic mass] 20.8 pg Low 27.0-32.0 [facility] Comment on above: Performed By: #### L 700.8000, L3100.8410, L3410.2000, L4500.0100, L100.0500 ####[facility] [address] [place], [address] MCHC (RBC) [Mass/Vol] 30.7 g/dL Low 32-36 [facility] Comment on above: Performed By: #### L 700.8000, L3100.8410, L3410.2000, L4500.0100, L100.0500 ####[facility] [address] [place], [address] MCV (RBC) [Entitic vol] 67.9 fL Low 81-99 [facility] Comment on above: Performed By: #### L 700.8000, L3100.8410, L3410.2000, L4500.0100, L100.0500 ####[facility] [address] [place], [address] Platelet mean volume (Bld) [Entitic vol] 10.6 fL Normal 6.2-12.0 [facility] Comment on above: Performed By: #### L 700.8000, L3100.8410, L3410.2000, L4500.0100, L100.0500 ####[facility] [address] [place], [address] Platelets (Bld) [#/Vol] 415 10*3/uL Normal 150-450 [facility] Comment on above: Performed By: #### L 700.8000, L3100.8410, L3410.2000, L4500.0100, L100.0500 ####[facility] [address] [place], [address] RBC (Bld) [#/Vol] 5.57 10*6/uL High 4.2-5.4 [facility] Comment on above: Performed By: #### L 700.8000, L3100.8410, L3410.2000, L4500.0100, L100.0500 ####[facility] [address] [place], [address] RDW SD 38.2 fl Normal 35.1-43.9 [facility] Comment on above: Performed By: #### L 700.8000, L3100.8410, L3410.2000, L4500.0100, L100.0500 ####[facility] [address] [place], [address] WBC (Bld) [#/Vol] 8.0 10*3/uL Normal 4.4-11.0 [facility] Comment on above: Performed By: #### L 700.8000, L3100.8410, L3410.2000, L4500.0100, L100.0500 ####[facility] [address] [place], [address] Cardiolipin IgG IA Qn (S)Ord ered By: Peggy Sanchez on 03-03-2024 Anti-Cardiolipin IgG Antibody < 9 GPL U/mL 0-14 [facility] Comment on above: Negative: <15 Indete rminate: 15 - 20 Low-Med Positive: >20 - 80 High Positive: >80 Dilute Isaac's viper venom timeOrdered By: Peggy Sanchez on 03-03-2024 dRVVT Coag (PPP) [Time] 27.5 s 0.0-47.0 [facility] Dilute prothrombin time rati o confirmationOrdered By: Peggy Sanchez on 03-03-2024 Prothrombin Time Ratio 0.93 Ratio 0.00-1.34 [facility] Erythrocyte distribution wid th ratioOrdered By: Peggy Sanchez on 03-03-2024 Erythrocyte distribution width (RBC) [Ratio] 15.9 % High 11.6-14.6 [facility] Erythrocyte distribution wid th standard deviationOrdered By: Peggy Sanchez on 03-03-2024 Erythrocyte distribution width (RBC) [Entitic vol] 38.2 fL 35.1-43.9 [facility] Erythrocyte distribution width (RBC) [Ratio] 38.2 fl 35.1-43.9 [facility] HCG ( test) QlOrder ed By: Peggy Sanchez on 03-03-2024 Human Chorionic Gonadotropin, Quant 26 mIU/mL High <4 [facility] Comment on above: hCG levels with Gest ational AgeGestational Age hCG mIU/mL (IU/L)0.2 - 1 week 5 - 501-2 weeks 50 - 5002-3 weeks 100 - 55785-9 weeks 500 - 559217-9 weeks 1000 - 965919-4 weeks 47417 - 100,0006-8 weeks 97512 - 200,0002-3 months 85939 - 100,000 Hematocrit Auto (Bld) [Volum e fraction]Ordered By: Peggy Sanchez on 03-03-2024 Hematocrit (Bld) [Volume fraction] 37.8 % 37-47 [facility] Hemoglobin measurementOrdere d By: Peggy Sanchez on 03-03-2024 Hemoglobin (Bld) [Mass/Vol] 11.6 g/dL Low 12.0-15.0 [facility] Interpretation of lupus anti coagulant assayOrdered By: Peggy Sanchez on 03-03-2024 Lupus Anticoagulant Interpretation Comment: . [facility] Comment on above: No lupus anticoagula nt was detected. Lupus anticoagulant neutrali zation dilute phospholipid time in platelet poor plasmaOrdered By: Peggy Sanchez on 03-03-2024 Prothrombin Time Diluted 30.2 sec 0.0-47.6 [facility] Lupus anticoagulant-sensitiv e activated partial thromboplastin timeOrdered By: Peggy Sanchez on 03-03-2024 Lupus Anticoagulant APTT 37.5 sec 0.0-43.5 [facility] MCV (mean corpuscular volume ) determinationOrdered By: Peggy Sanchez on 03-03-2024 MCV (RBC) [Entitic vol] 67.9 fL Low 81-99 [facility] Mean corpuscular hemoglobin (MCH) determinationOrdered By: Peggy Sanchez on 03-03-2024 MCH (RBC) [Entitic mass] 20.8 pg Low 27.0-32.0 [facility] Mean corpuscular hemoglobin concentration (MCHC) determinationOrdered By: Peggy Sanchez on 03-03-2024 MCHC (RBC) [Mass/Vol] 30.7 g/dL Low 32-36 [facility] Mean platelet volume determi nationOrdered By: Peggy Sanchez on 03-03-2024 Platelet mean volume (Bld) [Entitic vol] 10.6 fL 6.2-12.0 [facility] Platelet countOrdered By: Amos Sanchez on 03-03-2024 Platelets (Bld) [#/Vol] 415 10*3/uL 150-450 [facility] RBC Auto (Bld) [#/Vol]Ordere d By: Peggy Sanchez on 03-03-2024 RBC (Bld) [#/Vol] 5.57 10*6/uL High 4.2-5.4 [facility] Serum beta 2 glycoprotein 1 IgA antibody detectionOrdered By: Peggy Sanchez on 03-03-2024 Beta 2 glycoprotein 1 IgA Ql (S) <9 0-25 [facility] Comment on above: Result Units: GPI Ig A unitsThe reference interval reflects a 3SD or 99th percentileinterval, which is thought to represent a potentiallyclinically significant result in accordance with theInternational Consensus Statement on the classificationcriteria for definitive antiphospholipid syndrome (APS). JThromb Haem 2006;4:295-306. Serum beta 2 glycoprotein 1 IgG antibody detectionOrdered By: Peggy Sanchez on 03-03-2024 Beta 2 glycoprotein 1 IgG Ql (S) <9 0-20 [facility] Comment on above: Result Units: GPI Ig G unitsThe reference interval reflects a 3SD or 99th percentileinterval, which is thought to represent a potentiallyclinically significant result in accordance with theInternational Consensus Statement on the classificationcriteria for definitive antiphospholipid syndrome (APS). JThromb Haem 2006;4:295-306. Serum beta 2 glycoprotein 1 IgM antibody detectionOrdered By: Peggy Sanchez on 03-03-2024 Beta 2 glycoprotein 1 IgM Ql (S) <9 0-32 [facility] Comment on above: Result Units: GPI Ig M unitsThe reference interval reflects a 3SD or 99th percentileinterval, which is thought to represent a potentiallyclinically significant result in accordance with theInternational Consensus Statement on the classificationcriteria for definitive antiphospholipid syndrome (APS). JThromb Haem 2006;4:295-306. Serum cardiolipin IgG antibo dy assay by immunoassay (units/volume)Ordered By: Peggy Sanchez on 03-03-2024 Cardiolipin IgG IA Qn (S) < 9 GPL U/mL 0-14 [facility] Comment on above: Negative: <15 Indete rminate: 15 - 20 Low-Med Positive: >20 - 80 High Positive: >80 Serum cardiolipin IgM antibo dy assayOrdered By: Peggy Sanchez on 03-03-2024 Anti-Cardiolipin IgM Antibody < 9 MPL U/mL 0-12 [facility] Comment on above: Negative: <13 Indete rminate: 13 - 20 Low-Med Positive: >20 - 80 High Positive: >80Performed at: [facility] [id number] Director: Ayo Burns MD, Phone: [phone] at: [facility] [address] [id number] Director: Xavier Salas PhD, Phone: [phone] Serum human chorionic gonado tropin detection for pregnancyOrdered By: Peggy Sanchez on 03-03-2024 HCG ( test) Ql 26 mIU/mL High <4 [facility] Comment on above: hCG levels with Gest ational AgeGestational Age hCG mIU/mL (IU/L)0.2 - 1 week 5 - 501-2 weeks 50 - 5002-3 weeks 100 - 22213-6 weeks 500 - 466063-5 weeks 1000 - 513349-7 weeks 20218 - 100,0006-8 weeks 87869 - 200,0002-3 months 40093 - 100,000 Thrombin timeOrdered By: Yeni Sanchez on 03-03-2024 Thrombin time Coag (PPP) [Time] 19.5 sec 0.0-23.0 [facility] Thrombin time Coag (PPP) [Ti me]Ordered By: Peggy Sanchez on 03-03-2024 Thrombin Time 19.5 sec 0.0-23.0 [facility] White blood cell (WBC) count Ordered By: Peggy Sanchez on 03-03-2024 WBC (Bld) [#/Vol] 8.0 10*3/uL 4.4-11.0 [facility] dRVVT Coag (PPP) [Time]Order ed By: Peggy Sanchez on 03-03-2024 Dilute Isaac Viper Venom (Lupus) 27.5 sec 0.0-47.0 [facility] hCG Titer Quant., Serumon HCG QUANT. 26 mIU/mL High 1-3 [facility] Comment on above: Result Comment: hCG levels with Gestational AgeGestational Age hCG mIU/mL (IU/L)0.2 - 1 week 5 - 501-2 weeks 50 - 5002-3 weeks 100 - 43452-7 weeks 500 - 333012-0 weeks 1000 - 147036-9 weeks 97487 - 100,0006-8 weeks 61950 - 200,0002-3 months 49064 - 100,000 Performed By: #### L 700.8000, L3100.8410, L3410.2000, L4500.0100, L100.0500 ####[facility] [address] [place], [address] Liveron 03-02-2024 Liver Normal [facility] Credit Relationship Manager Office Visit Reporton 03-02-2024 Credit Relationship Manager Office Visit Report Normal [facility] HCG ( test) QlOrder ed By: Silviano Daley on 03-01-2024 Human Chorionic Gonadotropin, Quant 24 mIU/mL High <4 [facility] Comment on above: hCG levels with Gest ational AgeGestational Age hCG mIU/mL (IU/L)0.2 - 1 week 5 - 501-2 weeks 50 - 5002-3 weeks 100 - 69155-7 weeks 500 - 003993-5 weeks 1000 - 052481-7 weeks 18282 - 100,0006-8 weeks 75783 - 200,0002-3 months 54045 - 100,000 Serum human chorionic gonado tropin detection for pregnancyOrdered By: Silviano Daley on 03-01-2024 HCG ( test) Ql 24 mIU/mL High <4 [facility] Comment on above: hCG levels with Gest ational AgeGestational Age hCG mIU/mL (IU/L)0.2 - 1 week 5 - 501-2 weeks 50 - 5002-3 weeks 100 - 60707-0 weeks 500 - 886326-7 weeks 1000 - 161067-5 weeks 69078 - 100,0006-8 weeks 52217 - 200,0002-3 months 59718 - 100,000 hCG Titer Quant., Serumon HCG QUANT. 24 mIU/mL High 1-3 [facility] Comment on above: Result Comment: hCG levels with Gestational AgeGestational Age hCG mIU/mL (IU/L)0.2 - 1 week 5 - 501-2 weeks 50 - 5002-3 weeks 100 - 44314-9 weeks 500 - 797630-7 weeks 1000 - 924001-8 weeks 11460 - 100,0006-8 weeks 51314 - 200,0002-3 months 51613 - 100,000 Performed By: #### L 700.8000 ####[facility] [address] [place], [address] HCG ( test) QlOrder ed By: Silviano Daley on 02-28-2024 Human Chorionic Gonadotropin, Quant 21 mIU/mL High <4 [facility] Comment on above: hCG levels with Gest ational AgeGestational Age hCG mIU/mL (IU/L)0.2 - 1 week 5 - 501-2 weeks 50 - 5002-3 weeks 100 - 57037-2 weeks 500 - 893566-4 weeks 1000 - 894848-7 weeks 47502 - 100,0006-8 weeks 75350 - 200,0002-3 months 19161 - 100,000 hCG Titer Quant., Serumon HCG QUANT. 21 mIU/mL High 1-3 [facility] Comment on above: Result Comment: hCG levels with Gestational AgeGestational Age hCG mIU/mL (IU/L)0.2 - 1 week 5 - 501-2 weeks 50 - 5002-3 weeks 100 - 27718-2 weeks 500 - 296774-4 weeks 1000 - 475723-3 weeks 67263 - 100,0006-8 weeks 97903 - 200,0002-3 months 36930 - 100,000 Performed By: #### L 700.8000 ####[facility] [address] [place], [address] ED MED ADMINISTRATION DETAIL on 02-22-2024 ED MED ADMINISTRATION DETAIL Director [employer] Medication Administration Record [facility] [address] [place] [address] [id number] 02/20/2024 Patient: ANNE MARIE PETERSON Sex: Female : 1995 Age: 28y MEASUREMENTS: Wt: 117.9 kg, Ht/Jorje: 66.0 in, BMI: 41.96 ALLERGIES: NSAIDS (Non-Steroidal Anti-Inflammatory Drug) Medication Ordered Medication Administration Date/Time IV NS 0.9 % 1000 18:35 02/19 IV NS 0.9 % 1000 mL started in bag#1 1000 mL at Started mL at 999 mL/hr 999 mL/hr via Site# 1. Allergies verified and confirmed 5 rights. Via 18:35 02/20/2024 (NOW x1) IV pump. IV patency established. IV site checked: no pain, redness, Jana Ramirez R.N. or swelling. IV flushed thoroughly pre-medication administration. Stopped Information reviewed with patient including reason for taking this 20:11 02/20/2024 medication, signs of allergic reaction and precautions. Verbalizes Ángela Doyle R.N. understanding. - 18:36 Jana Ramirez R.N. Scanned 20:11 02/19 Medication Discontinued: bag #1 completed. Total amount infused: 1000 mL. IV patency established. IV site checked: no pain, redness, or swelling. IV flushed thoroughly post-medication administration. - 20:48 Ángela Doyle R.N. Acetaminophen 19:39 02/19 Acetaminophen (Tylenol) PO 650 mg given. Allergies Given (Tylenol) PO 650 verified and confirmed 5 rights. Information reviewed with patient. 19:39 02/20/2024 mg (NOW x1) Verbalizes understanding. - 19:40 Chasity Lieberman R.N. Scanned 1 of 2 [employer] Medication Ordered Medication Administration Date/Time IV NS 0.9 % 1000 20:11 02/19 IV NS 0.9 % 1000 mL started in bag#2 1000 mL at Started mL at 999 mL/hr 999 mL/hr via Site# 1. Allergies verified and confirmed 5 rights. IV 20:11 02/20/2024 (NOW x1) patency established. IV site checked: no pain, redness, or swelling. Ángela Doyle R.N. IV flushed thoroughly pre-medication administration. Information Stopped reviewed with patient. Verbalizes understanding. - 20:12 Ángela 23:00 02/20/2024 Chasity Doyle R.N. Scanned 23:00 02/19 Medication Discontinued: bag #2 completed. Total amount infused: 1000 mL. IV patency established. IV site checked: no pain, redness, or swelling. IV flushed thoroughly post-medication administration. - 23:47 Ángela Doyle R.N. 2 of 2 Normal [facility] ED NURSES CLINICAL NOTEon ED NURSES CLINICAL NOTE Nurse Narrative Nurse Clinical Narrative [address] [place] [address] [id number] 02/20/2024 Patient: ANNE MARIE PETERSON Sex: Female : 1995 Age: 28y Disposition: Discharge to Home Disposition Decision Time: 23:17 02/20/2024 Departure Time: 23:31 02/20/2024 TRIAGE Arrived by private vehicle. Historian: patient. Accompanied by family. Primary physician (Zakia Lane). Triage time: 17:34 02/20/2024. Acuity: LEVEL 3. Chief Complaint: FLU and FEVER, possible FLU EXPOSURE and exposure (vomiting, diarrhea). Alert. No acute distress. The patient has had chills, a headache, abdominal pain, vomiting and diarrhea. ( History of gastric bypass, unable to keep herself hydrated). -- 17:42 02/20/24 DEANN Wood R.N. 17:39 02/20/24. BP: 119/86 MAP: 97. HR: 102. RR: 16. O2 saturation: 98% Temperature: 99.2 F. Pain level now 4/10. -- 17:42 02/20/24 DEANN Wood R.N. 17:44 02/20/24. SEPSIS SCREEN: NEGATIVE. SIRS criteria negative: heart rate greater than 90. No possible sources of infection. -- 17:44 02/20/24 DEANN Wood R.N. Measurements: 17:39 02/20/24 Wt: 117.9 kg, Ht/Jorje: 66.0 in, BMI: 41.96 -- 17:39 02/20/24 DEANN Wood R.N. Medications: pantoprazole 40 mg tablet,delayed release: 1 tablet once a day. -- 17:44 02/20/24 DEANN Wood R.N. 1 of 5 Nurse Narrative metoprolol tartrate 25 mg tablet: 1 tablet twice a day. -- 17:44 02/20/24 DEANN Wood R.N. Allergies: NSAIDS (Non-Steroidal Anti-Inflammatory Drug) -- 17:36 02/20/24 DEANN Wood R.N. Problems: Atrial Fibrillation -- 17:37 02/20/24 DEANN Wood R.N. ADDITIONAL SURGERIES: Gastric Bypass -- 17:36 02/20/24 EDANN Wood R.N. Hernia Repair -- 17:37 02/20/24 DEANN Wood R.N. Cholecystectomy -- 17:37 02/20/24 DEANN Wood R.N. History 17:34 02/20/24. SOCIAL HX: Never smoker. No alcohol use or drug use. The patient has not traveled outside the [place] Infectious disease exposure: No infectious disease exposure. ABUSE ASSESSMENT: Abuse denied. No suspicion of abuse. No report of abuse. SELF HARM ASSESSMENT: Self harm assessment was performed. The patient answered no to the question(s) Have you recently felt down, depressed, or hopeless?, Do you have thoughts of harming or killing yourself?, Do you have a plan for harming or killing yourself?, Have you recently had thoughts about harming or killing others?, Do you have any dangerous items in your possession?, Have you noticed less interest or pleasure in doing things?, Are you here because you tried to hurt yourself? and Have you ever tried to hurt yourself before today?. NUTRITIONAL RISK ASSESSMENT: The nutritional risk assessment revealed no deficiencies. FUNCTIONAL ASSESSMENT: Functional assessment: no impairments noted. LEARNING NEEDS ASSESSMENT: The learning needs assessment revealed no barriers. FALL RISK ASSESSMENT: Fall risk assessment completed. No risk factors identified. 2 of 5 Nurse Narrative SKIN INTEGRITY ASSESSMENT: Skin integrity risk assessment completed. No skin integrity risk identified. -- 17:42 02/20/24 DEANN Wood R.N. Assessment 17:34 02/20/24. The patient states feels the same. -- 17:42 02/20/24 DEANN Wood R.N. Interventions 17:34 02/20/24. Identification band on patient. To treatment room. Advanced care plan (FC). -- 17:42 02/20/24 DEANN Wood R.N. PHYSICAL ASSESSMENT 18:40 02/20/24. Pain level now 4/10. (abdomen). -- 19:05 02/20/24 DEANN Ramirez R.N. 18:42 02/20/24. ( Since Wednesday). GENERAL / NEURO / PSYCH: Alert. Oriented X 4. Appears in no acute distress. HEENT: Pupils equal, round and reactive to light. RESPIRATORY: Respirations not labored. Chest nontender. Breath sounds within normal limits. CVS: Normal sinus rhythm noted. Capillary refill less than 2 seconds. Pulses within normal limits. GI / : The patient has had nausea and diarrhea. Emesis noted. Abdomen soft. SKIN: Skin is warm and dry. Normal skin turgor. -- 19:07 02/20/24 DEANN Ramirez R.N. NURSING PROGRESS NOTES 18:35 02/20/24. IV NS 0.9 % 1000 mL started in bag#1 1000 mL at 999 mL/hr via Site# 1. Allergies verified and confirmed 5 rights. Via IV pump. IV patency established. IV site checked: no pain, redness, or swelling. IV flushed thoroughly pre-medication administration. Information reviewed with patient including reason for taking this medication, signs of allergic reaction and precautions. Verbalizes understanding. -- 18:36 02/20/24 EST Jana Ramirez R.N. 18:50 02/20/24. HR: 100 bpm. O2 saturation: 95%. -- 01:48 02/21/24 EST Ángela Doyle R.N. 19:00 02/20/24. HR: 100 bpm. O2 saturation: 96%. -- 01:48 02/21/24 EST Ángela Doyle R.N. 19:05 02/20/24. HR: 93 bpm. O2 saturation: 97%. -- 01:48 01/24 (more content not included)... Normal [facility] ED ORDER SHEET (CPOE ONLY)on 02-22-2024 ED ORDER SHEET (CPOE ONLY) Order Sheet Order Sheet [address] [place] [address] [id number] 02/20/2024 Patient: ANNE MARIE PETERSON Sex: Female : 1995 Age: 28y MEASUREMENTS: Wt: 117.9 kg, Ht/Jorje: 66.0 in, BMI: 41.96 ALLERGIES: NSAIDS (Non-Steroidal Anti-Inflammatory Drug) MEDICATION/IV/DRIP/FLUI D ORDERS Order Description Priority Entered Acknowledged Completed IV NS 0.9 %1000 mL at 999 17:54 02/20/2024 18:35 18:36 mL/hr (NOW x1) Anup Larios, 02/20/2024 02/20/2024 Jana Boles R.N. RMirthaNMirtha Acetaminophen (Tylenol) 19:38 02/20/2024 19:40 PO650 mg (NOW x1) Jaswinder Sena, 02/20/2024 Mian Doyle R.N. IV NS 0.9 %1000 mL at 999 20:11 02/20/2024 20:12 mL/hr (NOW x1) Jaswinder Sena, 02/20/2024 Mian Doyle R.N. Reason for ordering with alerts: Benefits outweigh risks --20:11 02/20/2024 Jaswinder Sena D.O. PredniSONE PO20 mg (NOW 22:00 02/20/2024 Cancelled: Other x1) Jaswinder Sena, 22:11 EST Jaswinder Sena D.O. D.O. 1 of 3 Order Sheet LAB ORDERS Order Description Priority Entered Acknowledged Collected Completed CBC w Diff Stat Stat 17:54 02/20/2024 18:27 02/20/2024 18:35 02/20/2024 Jana Keane Lemasters, D.O. R.N. R.N. CMP Stat Stat 17:54 02/20/2024 18:27 02/20/2024 18:35 02/20/2024 Jana Keane Lemasters, D.O. R.N. R.N. Lipase Stat Stat 17:54 02/20/2024 18:27 02/20/2024 18:35 02/20/2024 Jana Keane Lemasters, D.O. R.N. R.N. Urinalysis Stat Stat 17:54 02/20/2024 18:27 02/20/2024 23:09 02/20/2024 Ángela Keane Lemasters, D.O. R.N. R.NMirtha Rapid COVID (SARS) Stat 19:55 02/20/2024 20:06 02/20/2024 20:13 02/20/2024 ANTIGEN TEST Stat Hema Elena Crystal Brenner, D.O. E.M.TMirtha-P. RZuleyka Flu Swab (Influenzae Stat 19:55 02/20/2024 20:06 02/20/2024 20:13 02/20/2024 AAg) Stat Hema Elena Crystal Brenner, D.O. E.M.TMirtha-P. R.Lalo DIAGNOSTIC STUDY ORDERS Order Description Priority Entered Acknowledged Completed CT ABD/PEL w Cont Stat Stat 21:51 02/20/2024 21:57 23:09 2 of 3 Order Sheet Jaswinder Sena, 02/20/2024 02/20/2024 Ángela Zhou R.N. R.N. Order Comments: 21:51 02/20/2024: Status: Not . Jaswinder Sena D.O. Reason for Study: Abdominal Pain STAFF ORDERS Order Description Priority Entered Acknowledged Collected Completed IV Saline Lock 17:54 02/20/2024 18:27 02/20/2024 18:35 02/20/2024 Jana Keane Lemasters, D.O. R.N. RZuleyka [Electronically signed by Anup Larios D.O. (02/20/2024 18:54 EST)] [Electronically signed by Jaswinder Sena D.O. (02/21/2024 00:45 EST)] 3 of 3 Normal [facility] ED PHYSICIAN CLINICAL REPORT on 02-22-2024 ED PHYSICIAN CLINICAL REPORT Narrative Physician Clinical Narrative [address] [address] [id number] 02/20/2024 Patient: ANNE MARIE PETERSON Sex: Female : 1995 Age: 28y Disposition: Discharge to Home Disposition Decision Time: 23:17 02/20/2024 Departure Time: 23:31 02/20/2024 Measurements Wt: 117.9 kg, Ht/Jorje: 66.0 in, BMI: 41.96 Initial Vital Sign Measured Time BP MAP HR RR O2Sat ETCO2 Temp Pain GCS RTS 17:39 02/20/2024 119/86 97 102 16 98% 99.2 F 4 REVIEW OF SYSTEMS Status: Not . PAST HISTORY Atrial Fibrillation Surgeries: Cholecystectomy Gastric Bypass Hernia Repair Medications: metoprolol tartrate 25 mg tablet: 1 tablet twice a day. 1 of 16 Narrative pantoprazole 40 mg tablet,delayed release: 1 tablet once a day. Allergies: NSAIDS (Non-Steroidal Anti-Inflammatory Drug) LABS, X-RAYS, AND EKG Laboratory Tests: CBC + DIFF Final JESSICA: 02/20/2024 18:35:00 EST MsgRcvd: 02/20/2024 19:58 EST Lab Test Result Reference Status Received Comments 02/20/2024 19:58 CBC-COMPLETE CBC + DIFF Final EST BLOOD COUNT 02/20/2024 19:58 WBC 7.9 x 10/UL 4.5 - 10.8 Final EST 6.22 x 10/UL 02/20/2024 19:58 RBC 4.10 - 5.30 Final Above high normal EST 02/20/2024 19:58 HEMOGLOBIN 13.5 g/dl 12.0 - 16.0 Final EST 02/20/2024 19:58 HEMATOCRIT 41.1 % 34.0 - 46.0 Final EST 66 fl 02/20/2024 19:58 MCV 80 - 99 Final Below low normal EST 22 pg 02/20/2024 19:58 MCH 27 - 33 Final Below low normal EST 02/20/2024 19:58 MCHC 33 X10 3 32 - 36 Final EST 17.2 % 02/20/2024 19:58 RDW/CV 12.0 - 15.6 Final Above high normal EST 2 of 16 Narrative 02/20/2024 19:58 PLATELET 404 x10/UL 150 - 450 Final EST 02/20/2024 19:58 AUTOMATED MPV 9.6 fl 6.6 - 10.5 Final EST DIFFERENTIAL 89.0 % 02/20/2024 19:58 NEUT % 46.0 - 76.0 Final Above high normal EST 6.3 % 02/20/2024 19:58 LYMPH % 20.0 - 45.0 Final Below low normal EST 02/20/2024 19:58 MONOS % 4.3 % 0.0 - 10.0 Final EST 02/20/2024 19:58 EO % 0.3 % 0.0 - 7.0 Final EST 02/20/2024 19:58 BASO % 0.1 % 0.0 - 2.0 Final EST 0.50 x10/UL 02/20/2024 19:58 Lymph # 0.80 - 2.80 Final Below low normal EST 02/20/2024 19:58 Neut # 7.07 x10/UL 1.50 - 7.10 Final EST 02/20/2024 19:58 [place] # 0.34 x10/UL 0.20 - 1.00 Final EST 02/20/2024 19:58 EO # 0.02 x10/UL 0.00 - 0.50 Final EST 02/20/2024 19:58 Baso # 0.00 x10/UL 0.00 - 0.10 Final EST 02/20/2024 19:58 MANUAL DIFF N/A New Order EST 02/20/2024 19:58 MORPHOLOGY SEE BELOW Final EST 3 of 16 Narrative 02/20/2024 19:58 PLT EST NORMAL Final EST MANY LARGE 02/20/2024 19:58 Other Final PLATELETS EST CMP with eGFR Final JESSICA: 02/20/2024 18:35:00 EST MsgRcvd: 02/20/2024 19:57 EST Lab Test Result Reference Status Received Comments COMPREHENSIVE 02/20/2024 CMP with eGFR Final METABOLIC 19:57 EST PANEL 02/20/2024 SODIUM 138 mmol/l 136 - 145 Final 19:57 EST 02/20/2024 POTASSIUM 3.7 mmol/L 3.5 - 5.1 Final 19:57 EST 02/20/2024 CHLORIDE 102 mmol/L 98 - 107 Final 19:57 EST 02/20/2024 CO2 23.2 mmol/L 21.0 - 32.0 Final 19:57 EST 02/20/2024 GLUCOSE 98 mg/dl 74 - 106 Final 19:57 EST 02/20/2024 BUN 11 mg/dl 7 - 18 Final 19:57 EST 02/20/2024 CREATININE 0.61 mg/dl 0.55 - 1.02 Final 19:57 EST 02/20/2024 AST/SGOT 23 U/L 13 - 39 Final 19:57 EST 4 of 16 Narrative 02/20/2024 ALK PHOS 81 U/L 46 - 116 Final 19:57 EST 02/20/2024 CALCIUM 9.1 mg/dl 8.5 - 10.1 Final 19:57 EST TOTAL 02/20/2024 8.0 g/dl 6.4 - 8.2 Final PROTEIN 19:57 EST 02/20/2024 ALBUMIN 3.7 g/dL 3.4 - 5.0 Final 19:57 EST 4.3 G/DL 02/20/2024 GLOBULIN Above high 1.5 - 3.8 Final 19:57 EST normal 02/20/2024 A/G RATIO 0.9 0.9 - 1.6 Final 19:57 EST 02/20/2024 TOTAL BILI 0.5 mg/dl 0.2 - 1.0 Final 19:57 EST 02/20/2024 B/C RATIO 18 ratio 0 - 30 Final 19:57 EST 02/20/2024 ALT/SGPT 31 U/L 16 - 63 Final 19:57 EST 02/20/2024 ANION GAP 17 mmol/L 10 - 20 Final 19:57 EST 02/20/2024 AGE 28 years Final 19:57 EST 02/20/2024 eGFR >60 ML/MINUTE 60 - 999 Final 19:57 EST 5 of 16 Narrative ACCORDING TO THE NATIONAL KIDNEY DISEASE EDUCATION PROGRAM(NKDE), A NORMAL eGFR IS A VALUE GREATER THAN OR EQUAL TO 60 ML/MIN/1.73 SQ METERS. 02/20/2024 CHRONIC KIDNEY eGFR(AA) >60 ML/MINUTE 60 - 999 Final 19:57 EST DISEASE: <60mL/MIN/1.73 SQ METERS KIDNEY FAILURE: <15mL/MIN/1.73 SQ METERS THIS TEST SHOULD ONLY BE USED FOR PATIENTS 18 YEARS OF AGE AND OLDER. CORONAVIRUS (SARS) ANTIGEN TEST Final JESSICA: 02/20/2024 19:51:00 EST MsgRcvd: 02/20/2024 20:51 EST Lab Test Result Reference Status Received Comments MARIELENA (more content not included)... Normal [facility] ED SUPER BILLon 02-22-2024 ED [facility] [address] [place] [address] [id number] 02/20/2024 Patient: ANNE MARIE PETERSON Sex: Female : 1995 Age: 28y Item Facility Professional Category Description Code Code Quantity Fee Total Drugs Normal Saline 383092 2 $0.00 $0.00 1000cc (980024) Nurse/E/M EMERGENCY 196931 1 $0.00 $0.00 DEPARTMENT VISIT HIGH/URGENT SEVERITY (34654-10) Nurse/IV/IM/Infusions Hydration 068521 3 $0.00 $0.00 additional hour (61756) Nurse/IV/IM/Infusions Hydration initial 482016 1 $0.00 $0.00 (95549) Grand Total $0.00 Providers Mian Contreras D.O. 1 of [address] [facility] Chief Complaint DIARRHEA. Principal Diagnosis Acute generalized abdominal pain. Acute abdominal pain of unknown cause. ICD-10 Codes R10.84: Generalized abdominal pain R10.9: Unspecified abdominal pain 2 of 2 Normal [facility] ED VISIT SUMMARYon ED VISIT SUMMARY Visit Overview Visit Overview [facility] [address] [place] [address] [id number] 02/20/2024 Patient: ANNE MARIE PETERSON Sex: Female : 1995 Age: 28y 02/22/2024 07:25 AM EST ED Arrival:17:01 02/20/2024 EST Status:not Recent Travel:no Language:eng Adv Directive: Isolation Status: Ethnicity:N Fall Risk:no risk Infectious Disease Exposure:no Measurements:5'6 / 167.6 Self-Harm Status:no risk Sepsis Screen:negative cm 260.0 lb / 117.9 kg Chief Complaint:FEVER, FLU, possible FLU EXPOSURE, (History of gastric bypass, unable to keep herself hydrated), (Zakia [place]), and (vomiting, diarrhea) ALLERGIES NSAIDS (Non-Steroidal Anti-Inflammatory Drug) HOME MEDICATIONS metoprolol tartrate 25 mg tablet: 1 tablet twice a day. pantoprazole 40 mg tablet,delayed release: 1 tablet once a day. 1 of 3 Visit Overview PAST MEDICAL HISTORY / PROBLEMS Atrial Fibrillation PAST SURGICAL HISTORY Cholecystectomy Gastric Bypass Hernia Repair SOCIAL HISTORY Nutritional assessment: No deficits Functional assessment: No impairments Learning needs: No barriers Smoking status: No Alcohol use: No Drug use: No ED COURSE MEDICATIONS GIVEN IN EMERGENCY DEPARTMENT 18:35 02/20/24 IV NS 0.9 % 1000 mL 999 mL/hr 19:39 02/20/24 Acetaminophen (Tylenol) PO 650 mg 20:11 02/20/24 IV NS 0.9 % 1000 mL 999 mL/hr IV SITE INFORMATION INTAKE OUTPUT REASSESMENT (most recent) 18:42 02/20/24. ( Since Wednesday). GENERAL / NEURO / PSYCH: Alert. Oriented X 4. Appears in no acute distress. HEENT: Pupils equal, round and reactive to light. RESPIRATORY: Respirations not labored. Chest nontender. Breath sounds within normal limits. CVS: Normal sinus rhythm noted. Capillary refill less than 2 seconds. Pulses within normal limits. GI / : The patient has had nausea and diarrhea. Emesis noted. Abdomen soft. SKIN: Skin is warm and dry. Normal skin turgor. 2 of 3 Visit Overview VITAL SIGNS First Vitals Last Vitals Temp 17:39 02/20/24 99.2 F Temp 23:30 02/20/24 98.6 F BP 17:39 02/20/24 119/86 BP 23:30 02/20/24 HR 17:39 02/20/24 102 HR 23:30 02/20/24 RR 17:39 02/20/24 16 RR 23:30 02/20/24 16 O2 Sat 17:39 02/20/24 98% O2 Sat 23:30 02/20/24 Pain 17:39 02/20/24 4 Pain 23:30 02/20/24 5 ETCO2 17:39 02/20/24 ETCO2 23:30 02/20/24 GCS 17:39 02/20/24 GCS 23:30 02/20/24 RTS 17:39 02/20/24 RTS 23:30 02/20/24 PROCEDURES NURSING INTERVENTIONS LABS / STUDIES LABS / STUDIES ORDERED CBC w Diff CMP CT ABD/PEL w Cont Flu Swab (Influenzae AAg) Lipase Rapid COVID (SARS) ANTIGEN TEST Urinalysis LABS / STUDIES PENDING IMPORT CT ABDOMEN/PELVIS W CLINICAL IMPRESSION ACUTE ABDOMINAL PAIN OF UNKNOWN CAUSE ACUTE GENERALIZED ABDOMINAL PAIN 3 of 3 Normal [facility] ED VITALS FLOW SHEETon 02-21 ED VITALS FLOW SHEET Vitals Vital Sign Flow Sheet [address] [address] [id number] 02/20/2024 Patient: ANNE MARIE PETERSON Sex: Female : 1995 Age: 28y Measurements Wt: 117.9 kg, Ht/Jorje: 66.0 in, BMI: 41.96 Measured Time BP MAP HR RR O2Sat ETCO2 Temp Pain GCS RTS 23:30 02/20/2024 16 98.6 F 5 23:25 02/20/2024 155/107 121 99 23:25 02/20/2024 94 96% 23:20 02/20/2024 90 97% 23:15 02/20/2024 93 97% 23:10 02/20/2024 136/89 99 91 23:10 02/20/2024 91 96% 23:05 02/20/2024 94 97% 23:00 02/20/2024 99 96% 22:55 02/20/2024 131/84 91 85 22:55 02/20/2024 84 95% 22:50 02/20/2024 85 96% 22:45 02/20/2024 91 98% 22:43 02/20/2024 138/82 100 87 22:40 02/20/2024 220/150 170 87 1 of 3 Vitals Measured Time BP MAP HR RR O2Sat ETCO2 Temp Pain GCS RTS 22:40 02/20/2024 91 96% 22:35 02/20/2024 86 96% 22:30 02/20/2024 94 96% 22:25 02/20/2024 96 95% 21:50 02/20/2024 89 97% 21:45 02/20/2024 91 94% 21:40 02/20/2024 141/101 114 96 21:40 02/20/2024 101 95% 21:35 02/20/2024 95 96% 21:30 02/20/2024 95 96% 21:25 02/20/2024 162/103 118 96 21:25 02/20/2024 96 94% 21:23 02/20/2024 174/101 112 94 21:20 02/20/2024 99 97% 21:15 02/20/2024 105 96% 21:10 02/20/2024 85 97% 21:05 02/20/2024 92 98% 21:00 02/20/2024 91 98% 20:55 02/20/2024 92 98% 20:50 02/20/2024 96 97% 20:45 02/20/2024 92 94% 20:40 02/20/2024 77 97% 20:35 02/20/2024 85 95% 20:30 02/20/2024 89 97% 20:25 02/20/2024 93 96% 2 of 3 Vitals Measured Time BP MAP HR RR O2Sat ETCO2 Temp Pain GCS RTS 20:20 02/20/2024 91 95% 20:15 02/20/2024 94 96% 20:10 02/20/2024 93 97% 20:05 02/20/2024 94 97% 20:00 02/20/2024 111 94% 19:55 02/20/2024 99 97% 19:50 02/20/2024 87 97% 19:45 02/20/2024 95 95% 19:40 02/20/2024 96 97% 19:35 02/20/2024 96 97% 19:30 02/20/2024 100 96% 19:25 02/20/2024 93 95% 19:20 02/20/2024 95 97% 19:15 02/20/2024 96 96% 19:10 02/20/2024 101 96% 19:05 02/20/2024 93 97% 19:00 02/20/2024 100 96% 18:55 02/20/2024 92 96% 18:50 02/20/2024 100 95% 18:45 02/20/2024 102 97% 18:40 02/20/2024 99 95% 18:40 02/20/2024 4 17:39 02/20/2024 119/86 97 102 16 98% 99.2 F 4 3 of 3 Normal [facility] CBC + DIFFon 02-20-2024 Baso # 0.00 x10EE3/UL Normal 0.00 - 0.10 [facility] Comment on above: Performed By: #### [id number] #### [facility],[address] [place] [address] Basophils/100 WBC (Bld) 0.1 % Normal 0.0 - 2.0 [facility] Comment on above: Performed By: #### [id number] #### [facility],[address] [place] [address] CBC + DIFF Normal [facility] Comment on above: Result Comment: CBC- COMPLETE BLOOD COUNT Performed By: #### 2 11588 #### [facility],[address] [place] [address] EO # 0.02 x10EE3/UL Normal 0.00 - 0.50 [facility] Comment on above: Performed By: #### 2 30835 #### [facility],[address] [place] [address] 85472 Eosinophils/100 WBC (Bld) 0.3 % Normal 0.0 - 7.0 [facility] Comment on above: Performed By: #### 2 32956 #### [facility],[address] [place] [address] Erythrocyte distribution width (RBC) [Ratio] 17.2 % High 12.0 - 15.6 [facility] Comment on above: Performed By: #### 2 88309 #### [facility],[address] [place] [address] Hematocrit (Bld) [Volume fraction] 41.1 % Normal 34.0 - 46.0 [facility] Comment on above: Performed By: #### 2 55106 #### [place] [address] Hemoglobin (Bld) [Mass/Vol] 13.5 g/dL Normal 12.0 - 16.0 [facility] Comment on above: Performed By: #### 2 33436 #### [facility],[address] [place] [address] Lymph # 0.50 x10EE3/UL Low 0.80 - 2.80 [facility] Comment on above: Performed By: #### 2 66361 #### [facility],[address] [place] [address] 60489 Lymphocytes/100 WBC (Bld) 6.3 % Low 20.0 - 45.0 [facility] Comment on above: Performed By: #### 2 64901 #### [facility],[address] [place], [place] [id number] MANUAL DIFF N/A Normal [facility] Comment on above: Performed By: #### 2 23451 #### [facility],[address] [place] [address] 91142 MCH (RBC) [Entitic mass] 22 pg Low 27 - 33 [facility] Comment on above: Performed By: #### 2 36058 #### [facility],[address] [place] [address] 71435 MCHC 33 X10 3 Normal 32 - 36 [facility] Comment on above: Performed By: #### 2 11329 #### [facility],[address] [place] [address] 69069 MCV (RBC) [Entitic vol] 66 fL Low 80 - 99 [facility] Comment on above: Performed By: #### 2 88726 #### [facility],[address] [place] [address] 14439 [place] # 0.34 x10EE3/UL Normal 0.20 - 1.00 [facility] Comment on above: Performed By: #### 2 34212 #### [facility],[address] [place] [address] 36751 MONOS % 4.3 % Normal 0.0 - 10.0 [facility] Comment on above: Performed By: #### 2 48153 #### [facility],[address] [place] [address] 33895 Morphology Girish (Bld) [Interp] SEE BELOW Normal [facility] Comment on above: Performed By: #### 2 46699 #### [facility],[address] [place] [address] 01688 Neut # 7.07 x10EE3/UL Normal 1.50 - 7.10 [facility] Comment on above: Performed By: #### 2 51513 #### [facility],[address] [place] [address] 94450 Neutrophils/100 WBC (Bld) 89.0 % High 46.0 - 76.0 [facility] Comment on above: Performed By: #### 2 01462 #### [facility],[address] [place] [address] 69675 PLATELET 404 x10EE3/UL Normal 150 - 450 [facility] Comment on above: Performed By: #### 2 06139 #### [facility],[address] [place] [address] 47251 Platelet mean volume (Bld) [Entitic vol] 9.6 fL Normal 6.6 - 10.5 [facility] Comment on above: Result Comment: AUTO MATED DIFFERENTIAL Performed By: #### 2 22044 #### [facility],[address] [place] [address] 60843 PLT EST NORMAL Normal [facility] Comment on above: Performed By: #### 2 53545 #### [facility],[address] [place] [address] 41780 RBC 6.22 x 10EE6/UL High 4.10 - 5.30 [facility] Comment on above: Performed By: #### 2 20246 #### [facility],[address] [place] [address] 57790 WBC 7.9 x 10EE3/UL Normal 4.5 - 10.8 [facility] Comment on above: Performed By: #### 2 28734 #### [facility],[address] [place] [address] 50957 Other MANY LARGE PLATELETS Normal [facility] Comment on above: Performed By: #### 2 17093 #### [facility],[address] [place] [address] 52682 CMP with eGFRon 02-20-2024 AGE 28 years Normal [facility] Comment on above: Performed By: #### 2 91822 #### [facility],[address] [place] [address] 77262 Albumin [Mass/Vol] 3.7 g/dL Normal 3.4 - 5.0 [facility] Comment on above: Performed By: #### 2 10279 #### [facility],[address] [place] [address] 00099 Albumin/Globulin [Mass ratio] 0.9 {ratio} Normal 0.9 - 1.6 [facility] Comment on above: Performed By: #### 2 86724 #### [facility],[address] [place] [address] 71917 ALK PHOS 81 U/L Normal 46 - 116 [facility] Comment on above: Performed By: #### 2 19374 #### [facility],[address] [place] [address] 12524 ALT [Catalytic activity/Vol] 31 U/L Normal 16 - 63 [facility] Comment on above: Performed By: #### 2 57070 #### [facility],[address] [place] [address] 21858 Anion gap [Moles/Vol] 17 mmol/L Normal 10 - 20 [facility] Comment on above: Performed By: #### 2 43455 #### [facility],[address] [place] [address] 70006 AST [Catalytic activity/Vol] 23 U/L Normal 13 - 39 [facility] Comment on above: Performed By: #### 2 04617 #### [facility],[address] [place] [address] 59672 B/C RATIO 18 ratio Normal 0 - 30 [facility] Comment on above: Performed By: #### 2 15179 #### [facility],[address] [place] [address] 27645 Bilirubin [Mass/Vol] 0.5 mg/dL Normal 0.2 - 1.0 [facility] Comment on above: Performed By: #### 2 71017 #### [facility],[address] [place] [address] 23875 Calcium [Mass/Vol] 9.1 mg/dL Normal 8.5 - 10.1 [facility] Comment on above: Performed By: #### 2 57611 #### [facility],[address] [place] [address] 62317 Chloride [Moles/Vol] 102 mmol/L Normal 98 - 107 [facility] Comment on above: Performed By: #### 2 45457 #### [facility],[address] [place] [address] 44703 CMP with eGFR Normal [facility] Comment on above: Result Comment: COMP REHENSIVE METABOLIC PANEL Performed By: #### 2 61735 #### [facility],[address] [place], [place] [address] CO2 [Moles/Vol] 23.2 mmol/L Normal 21.0 - 32.0 [facility] Comment on above: Performed By: #### 2 04792 #### [facility],[address] [place] [address] Creatinine [Mass/Vol] 0.61 mg/dL Normal 0.55 - 1.02 [facility] Comment on above: Performed By: #### 2 32753 #### [facility],[address] [place] [address] GFR/1.73 sq M.predicted among non-blacks MDRD (S/P/Bld) [Vol rate/Area] mL/min/{1.73_m2} Normal 60 - 999 [facility] Comment on above: Performed By: #### 2 48391 #### [facility],[address] [place] [address] Result Comment: ACCO RDING TO THE NATIONAL KIDNEY DISEASE EDUCATION PROGRAM(NKDE), A NORMAL eGFR IS A VALUE GREATER THAN OR EQUAL TO 60 ML/MIN/1.73 SQ METERS. CHRONIC KIDNEY DISEASE: <60mL/MIN/1.73 SQ METERS KIDNEY FAILURE: <15mL/MIN/1.73 SQ METERS THIS TEST SHOULD ONLY BE USED FOR PATIENTS 18 YEARS OF AGE AND OLDER. Globulin (S) [Mass/Vol] 4.3 g/dL High 1.5 - 3.8 [facility] Comment on above: Performed By: #### 2 39689 #### [facility],[address] [place], [place] [address] Glucose [Mass/Vol] 98 mg/dL Normal 74 - 106 [facility] Comment on above: Performed By: #### 2 40140 #### [facility],[address] [place] [address] 67796 Potassium [Moles/Vol] 3.7 mmol/L Normal 3.5 - 5.1 [facility] Comment on above: Performed By: #### 2 55877 #### [facility],[address] [place] [address] 14902 Protein [Mass/Vol] 8.0 g/dL Normal 6.4 - 8.2 [facility] Comment on above: Performed By: #### 2 28601 #### [facility],[address] [place] [address] 16002 Sodium [Moles/Vol] 138 mmol/L Normal 136 - 145 [facility] Comment on above: Performed By: #### 2 87851 #### [facility],[address] [place], [place] [address] Urea nitrogen [Mass/Vol] 11 mg/dL Normal 7 - 18 [facility] Comment on above: Performed By: #### 2 32007 #### [facility],[address] [place] [address] CORONAVIRUS (SARS) ANTIGEN T ESTon 02-20-2024 EXTERNAL QC DONE? YES Normal [facility] Comment on above: Performed By: #### 2 45414 #### [facility],[address] [place] [address] INTERNAL CONTROL PASS Normal [facility] Comment on above: Performed By: #### 2 96039 #### [facility],[address] [place], [place] [address] SARS ANTIGEN Negative Normal NORMAL: NEGATIVE [facility] Comment on above: Performed By: #### 2 93489 #### [facility],[address] [place] [address] 38349 SEND TO ? NO Normal [facility] Comment on above: Result Comment: SARS -CoV-2 THIS TEST IS BEING USED UNDER THE FDA EUA PROCEDURE. THIS ASSAY HAS BEEN VALIDATED AT [facility] FOR USE WITH NASAL AND NASOPHARYNGEAL SWAB SPECIMENS. INTERPRETIVE DATA TEST RESULTS SHOULD ALWAYS BE CONSIDERED IN THE CONTEXT OF CLINICAL OBSERVATIONS AND EPIDEMIOLOGICAL DATA IN MAKING FINAL DIAGNOSIS AND PATIENT MANAGEMENT DECISIONS. PATIENT MANAGEMENT SHOULD FOLLOW CURRENT CDC GUIDELINES. THE HARRIET SARS ANTIGEN GENARO DOES NOT DIFFERENTIATE BETWEEN SARS-CoV & SARS-CoV-2. A POSITIVE TEST RESULT INDICATES THE PRESENCE OF SARS-CoV-2 NUCLEOCAPSID PROTEIN ANTIGEN, AND THE PATIENT IS INFECTED WITH THE VIRUS AND PRESUMED TO BE CONTAGIOUS. A NEGATIVE TEST RESULT FOR THIS TEST MEANS THAT SARS-CoV-2 NUCLEOCAPSID PROTEIN ANTIGEN WAS NOT PRESENT IN THE SPECIMEN ABOVE THE LIMIT OF DETECTION. HOWEVER, A NEGATIVE RESULT DOES NOT RULE OUT COVID-19 AND SHOULD NOT BE USED THE SOLE BASIS FOR TREATMENT OR PATIENT MANAGEMENT DECISIONS. A NEGATIVE RESULT DOES NOT EXCLUDE THE POSSIBILITY OF COVID-19. NEGATIVE RESULTS, FROM PATIENTS WITH SYMPTOM ONSET BEYOND FIVE DAYS, SHOULD BE TREATED PRESUMPTIVE AND CONFIRMATION WITH A MOLECULAR ASSAY, IF NECESSARY, FOR PATIENT MANAGEMENT, MAY BE PERFORMED. WHEN DIAGNOSTIC TESTING IS NEGATIVE, THE POSSIBLILTY OF A FALSE NEGATIVE RESULT SHOULD BE CONSIDERED IN THE CONTEXT OF A PATIENT'S RECENT EXPOSURES AND THE PRESENCE OF CLINICAL SIGNS AND SYMPTOMS CONSISTENT WITH COVID-19. THE POSSIBILITY OF A FALSE NEGATIVE RESULT SHOULD ESPECIALLY BE CONSIDERED IF THE PATIENT'S RECENT EXPOSURES OR CLINICAL PRESENTATION INDICATE THAT COVID-19 IS LIKELY, AND DIAGNOSTIC TESTS FOR OTHER CAUSES OF ILLNESS (e.g., OTHER RESPIRATORY ILLNESS) ARE NEGATIVE. IF COVID-19 IS STILL SUSPECTED BASED ON EXPOSURE HISTORY TOGETHER WITH OTHER CLINICAL FINDINGS, RE-TESTING SHOULD BE CONSIDERED BY HEALTHCARE PROVIDERS IN CONSULTATION WITH PUBLIC HEALTH AUTHORITIES. Performed By: #### 2 23163 #### [place] [address] CT ABDOMEN/PELVIS [facility] 2023 CT ABDOMEN/PELVIS [place] [address] Patient: ANNE MARIE PETERSON Phone#: : 1995 Age: 28 Gender: F Pt. Type: ER Account: [id number] Location: [facility] Ordering: JASWINDER SENA Exam Date: 02/20/2024/22:05 Family Phys: XENIA LANE Charge Code: 600802 Physician: Walton Order #: [id number] Dose#: [id number] PROCEDURE: CT ABDOMEN/PELVIS WITH CONTRAST COMPARISON: [facility], CT, ABDOMEN/PELVIS W CON, 05/18/2023, 7:05. [facility], CT, CHEST PE W CON, 12/19/2022, 10:56. [facility], CT, ABDOMEN/PELVIS W CON, 10/25/2023, 16:50. INDICATIONS: Abdominal pain. TECHNIQUE: After obtaining the patient's consent, CT images were created with non-ionic intravenous contrast material. All CT scans at this facility use dose modulation, iterative reconstruction, and/or weight based dosing when appropriate to reduce radiation dose to as low as reasonably achievable. IV CONTRAST: Omnipaque 350,80ml TOTAL DOSE: 40.4 CTDIvol(mGy) FINDINGS: LIVER: Fatty changes of the liver are present. There is a 2.5 centimeter focus of diminished attenuation without enhancement in the left hepatic lobe not visualized on prior exam. Possibility of hemangioma is raised. BILIARY: Normal. No visible dilatation or calcification. PANCREAS: Normal. No lesion, fluid collection, ductal dilatation, or atrophy. SPLEEN: Normal. No enlargement or focal lesion. KIDNEYS: Normal. No mass, obstruction, or calcification. ADRENALS: Normal. No mass or enlargement. AORTA/VASCULAR: Normal. No aneurysm or dissection. RETROPERITONEUM: Normal. No mass or adenopathy. BOWEL/MESENTERY: Normal. No visible mass, obstruction, or bowel wall thickening. ABDOMINAL WALL: Normal. No mass or hernia. URINARY BLADDER: Normal. No visible focal wall thickening, lesion, or calculus. PELVIC NODES: Normal. No adenopathy. PELVIC ORGANS: Normal. No visible mass. Pelvic organs appropriate for patient age. BONES: Normal. No bony lesion or fracture. LUNG BASES: Normal. No visible pulmonary or pleural disease. Continued Report - Page 2 of 2 Patient: ANNE MARIE PETERSON Phone#: : 1995 Age: 28 Gender: F Pt. Type: ER Account: [id number] Location: [facility] Ordering: JASWINDER SENA Exam Date: 02/20/2024/22:05 Family Phys: XENIA LANE Charge Code: 055507 Physician: Walton Order #: [id number] Dose#: [id number] OTHER: Negative. CONCLUSION: 1. Subtle hypoattenuating focus in the left hepatic lobe of questionable etiology. Further evaluation by ultrasound or MRI without and with contrast is recommended. Dictated by: Astrid Jhonson MD on 02/21/2024 at 9:08 Approved by: Astrid Johnson MD on 02/21/2024 at 9:16 Normal [facility] INFLUENZA VIRUS RAPID A/Bon 02-20-2024 INFLUENZA VIRUS RAPID A/B INFLUENZA A NEGATIVE INFLUENZA B NEGATIVE INTERNAL NEG QC PASS INTERNAL POS QC PASS EXTERNAL QC DONE? YES SEND TO IC? NO A NEGATIVE TEST RESULT DOES NOT EXCLUDE INFECTION WITH INFLUENZA A OR B. THEREFORE, THE RESULTS OBTAINED FROM THIS FLU TEST SHOULD BE USED IN CONJUCTION WITH CLINICAL FINDINGS TO MAKE AN ACCURATE DIAGNOSIS. A POSITIVE RESULT DOES NOT RULE OUT CO-INFECTIONS WITH OTHER PATHOGENS OR IDENTIFY ANY SPECIFIC INFLUENZA A VIRUS SUBTYPE.CO-INFECTION WITH INFLUENZA A AND B IS RARE. IT IS RECOMMENDED THAT DUAL POSITIVE RESULTS BE CONFIRMED BY VIRAL CULTURE OR AN FDA-CLEARED INFLUENZA A AND B MOLECULAR ASSAY. INDIVIDUALS WHO HAVE RECEIVED NASALLY ADMINISTERED INFLUENZA A VACCINE MAY TEST POSITIVE IN COMMERCIALLY AVAILABLE INFLUENZA RAPID DIAGNOSTIC TESTS FOR UP TO THREE DAYS. RESULT CRITICAL? NO Normal [facility] Comment on above: Performed By: #### 2 60234 #### [place] [address] LIPASEon 02-20-2024 Lipase [Catalytic activity/Vol] 19.0 U/L Normal 15.0 - 78.0 [facility] Comment on above: Result Comment: *PLE ASE NOTE THAT RANGES FOR LIPASE HAVE CHANGED OF 02/19/23 DUE TO AN ASSAY UPDATE BY THE BREAD DUMPER.THE NEW ASSAY RANGE IS 6-250 U/L, WITH A REFERENCE RANGE OF 16-77 U/L. Performed By: #### 2 02553 #### [place] [address] URINALYSISon 02-20-2024 Amorphous NONE Normal [facility] Comment on above: Performed By: #### 2 06850 #### [place] [address] Bacteria 1+ Normal [facility] Comment on above: Performed By: #### 2 14211 #### [facility],[address] [place] [address] 17582 Bilirubin Ql (U) 1 Abnormal NORMAL: NEGATIVE [facility] Comment on above: Performed By: #### 2 17941 #### [facility],[address] [place] [address] 12455 Casts NONE Normal [facility] Comment on above: Performed By: #### 2 75795 #### [facility],[address] [place] [address] 05438 Clarity (U) clear Normal NORMAL: CLEAR [facility] Comment on above: Performed By: #### 2 27839 #### [facility],[address] [place] [address] 16996 Color (U) robert Normal NORMAL: YELLOW [facility] Comment on above: Performed By: #### 2 00878 #### [facility],[address] [place] [address] 81037 Crystals LM Nom (Urine sed) NONE Normal [facility] Comment on above: Performed By: #### 2 41376 #### [facility],[address] [place] [address] 80475 Epi Cells MODERATE Normal [facility] Comment on above: Performed By: #### 2 38935 #### [facility],[address] [place] [address] 75552 Glucose Ql (U) NORM Normal NORMAL: NORMAL [facility] Comment on above: Performed By: #### 2 05762 #### [facility],[address] [place] [address] 38805 Hemoglobin Ql (U) Negative Normal NORMAL: NEGATIVE [facility] Comment on above: Performed By: #### 2 72480 #### [facility],[address] [place] [address] 76800 Ketone 150 Abnormal NORMAL: NEGATIVE [facility] Comment on above: Performed By: #### 2 85116 #### [facility],[address] [place] [address] 01510 Leukocytes 25 Abnormal NORMAL: NEGATIVE [facility] Comment on above: Performed By: #### 2 03736 #### [facility],[address] [place] [address] Mucous 4+ Normal [facility] Comment on above: Performed By: #### 2 35108 #### [facility],[address] [place] [address] Nitrite Ql (U) Negative Normal NORMAL: NEGATIVE [facility] Comment on above: Performed By: #### 2 11430 #### [facility],[address] [place] [address] pH (U) 6 [pH] Normal NORMAL: 5.0-8.0 [facility] Comment on above: Performed By: #### 2 18863 #### [facility],[address] [place] [address] Protein Ql (U) 30 Abnormal NORMAL: NEGATIVE [facility] Comment on above: Performed By: #### 2 75913 #### [facility],[address] [place] [address] Rbc NONE Normal 0-3/hpf [facility] Comment on above: Performed By: #### 2 62599 #### [facility],[address] [place] [address] Sp [place] 1.025 Normal NORMAL: 1.010-1.030 [facility] Comment on above: Performed By: #### 2 27254 #### [facility],[address] [place] [address] Specimen Type R Normal [facility] Comment on above: Performed By: #### 2 53652 #### [facility],[address] [place] [address] Urinalysis dipstick W Reflex Microscopic panel (U) SEE BELOW Normal [facility] Comment on above: Result Comment: MICR OSCOPIC Performed By: #### 2 85759 #### [facility],[address] [place] [address] 90629 Urobilinog NORM Normal NORMAL: NORMAL [facility] Comment on above: Performed By: #### 2 49436 #### [facility],[address] [place] [address] 04095 Wbc 1-5 Normal 0-5/hpf [facility] Comment on above: Performed By: #### 2 31131 #### [facility],[address] [place] [address] 02879 Yeast NONE Normal [facility] Comment on above: Performed By: #### 2 03429 #### [facility],[address] [place] [address] 70124 25-hydroxyvitamin D3 [Mass/V ol]on 02-11-2024 Interpretation and review of laboratory results Abnormal [facility] Target concentration : 30 - 40 ng/mL; toxicity seen at concentrations >100 ng/mL Therapy is based on measurement of Total 25-OHD with the following classification levels: Less than 20 ng/mL: Indicative of Vit D deficiency 20-30 ng/mL: Suggests Vit D insufficiency Optimal: Greater than or equal to 30 ng/mL Test performed by [employer] Competitive Immunoassay, measuring Total Vitamin D, not individual fractions. [facility] CBC (HEMOGRAM)on 02-11-2024 Erythrocyte distribution width (RBC) [Ratio] 15.3 % High 11.5-15.0 [facility] Comment on above: Order Comment: These orders are set for an approximate date - they can be drawn up to 3 months prior to the Expected Date on this Req.Please send results to: [address] [facility] [address] - [phone] if not done at a [facility], please send to:[facility] [address], [facility] [address] [facility], [address]Csaxf: [phone] Ypvyvnm Name: Anne Marie Kristen - 1995Order Created by : Peggy Friedman MA Performed By: #### L [id number] ####Senior Sustainability Advisor: HENNY WADE ([phone])[address] Hematocrit (Bld) [Volume fraction] 37.6 % Normal 35.0-47.0 [facility] Comment on above: Order Comment: These orders are set for an approximate date - they can be drawn up to 3 months prior to the Expected Date on this Req.Please send results to: [address] [address] - [phone] if not done at a [facility], please send to:[place] [address]Phone: Uodehev Name: Anne Marie Peterson 1995Order Created by : Peggy Friedman MA Performed By: #### L [id number] ####Senior Sustainability Advisor: HENNY WADE ([phone])[address] Hemoglobin (Bld) [Mass/Vol] 11.2 g/dL Low 11.7-16.0 [facility] Comment on above: Order Comment: These orders are set for an approximate date - they can be drawn up to 3 months prior to the Expected Date on this Req.Please send results to: [address] [address] - [phone] if not done at a [facility], please send to:[place] [address]Phone: Ywrazvw Name: Anne Marie Peterson - 1995Order Created by : Peggy Friedman MA Performed By: #### L [id number] ####Senior Sustainability Advisor: HENNY WADE ([phone])[address] MCH (RBC) [Entitic mass] 20.7 pg Low 26.0-34.0 [facility] Comment on above: Order Comment: These orders are set for an approximate date - they can be drawn up to 3 months prior to the Expected Date on this Req.Please send results to: [address] [address] - [phone] if not done at a [facility], please send to:[place] [address]Phone: Pwhqtjz Name: Anne Marie Peterson - 1995Order Created by : Peggy Friedman MA Performed By: #### L [id number] ####Senior Sustainability Advisor: HENNY WADE ([phone])[address] MCHC 29.8 % Low 30.5-36.0 [facility] Comment on above: Order Comment: These orders are set for an approximate date - they can be drawn up to 3 months prior to the Expected Date on this Req.Please send results to: [address] [address] - [phone] if not done at a [facility], please send to:[place] [address]Phone: Augsmmh Name: Anne Marie Peterson - 1995Order Created by : Peggy Friedman MA Performed By: #### L [id number] ####Senior Sustainability Advisor: HENNY WADE ([phone])[address] MCV (RBC) [Entitic vol] 69.5 fL Low 77.0-99.0 [facility] Comment on above: Order Comment: These orders are set for an approximate date - they can be drawn up to 3 months prior to the Expected Date on this Req.Please send results to: [address] [address] - [phone] if not done at a [facility], please send to:[address], [address]Erjiv: [phone] Ppnzbre Name: Anne Marie Peterson - 1995Order Created by : Peggy Friedman MA Performed By: #### L [id number] ####Senior Sustainability Advisor: HENNY WADE ([phone])[facility] ([facility])[address] [place] [address] Platelet mean volume (Bld) [Entitic vol] 10.8 fL Normal 9.0-12.7 [facility] Comment on above: Order Comment: These orders are set for an approximate date - they can be drawn up to 3 months prior to the Expected Date on this Req.Please send results to: [address] [address] - [phone] if not done at a [facility], please send to:[address] [address]Fyhsq: [phone] Zkiqxun Name: Anne Marie Peterson - 1995Order Created by : Peggy Friedman MA Performed By: #### L AB294 ####Senior Sustainability Advisor: HENNY WADE ([phone])[facility] ([facility])[address] [place] [address] Platelets (Bld) [#/Vol] 377 10*3/uL Normal 140-440 [facility] Comment on above: Order Comment: These orders are set for an approximate date - they can be drawn up to 3 months prior to the Expected Date on this Req.Please send results to: [address] [address] - [phone] if not done at a [facility], please send to:[address], [address]Qznpc: [phone] Otmakdx Name: Anne Marie Tran 1995Order Created by : Peggy Friedman MA Performed By: #### L AB294 ####Senior Sustainability Advisor: HENNY WADE ([phone])[facility] ([facility])[address] [place] [address] RBC (Bld) [#/Vol] 5.41 10*6/uL High 3.80-5.20 [facility] Comment on above: Order Comment: These orders are set for an approximate date - they can be drawn up to 3 months prior to the Expected Date on this Req.Please send results to: [address] [address] - [phone] if not done at a [facility], please send to:[place] [address]Phone: Umudohx Name: Anne Marie Tran 1995Order Created by : Peggy Friedman MA Performed By: #### L AB294 ####Senior Sustainability Advisor: HENNY WADE ([phone])[facility] ([facility])[address] [place] [address] WBC (Bld) [#/Vol] 5.8 10*3/uL Normal 3.6-10.7 [facility] Comment on above: Order Comment: These orders are set for an approximate date - they can be drawn up to 3 months prior to the Expected Date on this Req.Please send results to: [address] [address] - [phone] if not done at a [facility], please send to:[place] [address]Phone: Rbynvmx Name: Anne Marie Tran 1995Order Created by : Peggy Friedman MA Performed By: #### L AB294 ####Senior Sustainability Advisor: HENNY WADE ([phone])[facility] ([facility])[address] [place] [address] CBC panel Auto (Bld)Ordered By: Flores Toscano on 02-11-2024 Erythrocyte distribution width (RBC) [Ratio] 15.3 % High 11.5 - 15.0 % [facility] Hematocrit (Bld) [Volume fraction] 37.6 % 35.0 - 47.0 % [facility] Hemoglobin (Bld) [Mass/Vol] 11.2 g/dL Low 11.7 - 16.0 g/dL [facility] Interpretation and review of laboratory results Abnormal [facility] MCH (RBC) [Entitic mass] 20.7 pg Low 26.0 - 34.0 pg [facility] MCHC (RBC) [Mass/Vol] 29.8 % Low 30.5 - 36.0 % [facility] MCV (RBC) [Entitic vol] 69.5 fL Low 77.0 - 99.0 fL [facility] Platelet mean volume (Bld) [Entitic vol] 10.8 fL 9.0 - 12.7 fL [facility] Platelets (Bld) [#/Vol] 377 10*3/uL 140 - 440 10*3/uL [facility] RBC (Bld) [#/Vol] 5.41 10*6/uL High 3.80 - 5.2 0 10*6/uL [facility] WBC (Bld) [#/Vol] 5.8 10*3/uL 3.6 - 10.7 10*3/uL [facility] COMPREHENSIVE METABOLIC PANE Chavez 02-11-2024 Albumin [Mass/Vol] 3.6 g/dL Normal 3.5-5.0 [facility] Comment on above: Order Comment: These orders are set for an approximate date - they can be drawn up to 3 months prior to the Expected Date on this Req.Please send results to: [place] [address] [address] - [phone] if not done at a [facility], please send to:[facility] - [address] [place] [address], [address], [address]Kmicn: [phone] Gqsrjic Name: Anne Marie Tran 1995Order Created by : Peggy Friedman MA Performed By: #### L AB69, LAB67, LAB68, LAB18, LAB17, [id number] ####Senior Sustainability Advisor: HENNY WADE ([phone])[facility])[address] [place] [address] ALP [Catalytic activity/Vol] 73 U/L Normal 40-150 [facility] Comment on above: Order Comment: These orders are set for an approximate date - they can be drawn up to 3 months prior to the Expected Date on this Req.Please send results to: [address] [address] - [phone] if not done at a [facility], please send to:[place] [address]Phone: Yunspcs Name: Anne Marie Tran 1995Order Created by : Peggy Friedman MA Performed By: #### L AB69, LAB67, LAB68, LAB18, LAB17, [id number] ####Senior Sustainability Advisor: HENNY WADE ([phone])[facility])[address] [place] [address] ALT [Catalytic activity/Vol] 18 U/L Normal <30 [facility] Comment on above: Order Comment: These orders are set for an approximate date - they can be drawn up to 3 months prior to the Expected Date on this Req.Please send results to: [address] [address] - [phone] if not done at a [facility], please send to:[place] [address]Phone: Mflfcsi Name: Anne Marie Tran 1995Order Created by : Peggy Friedman MA Performed By: #### L AB69, LAB67, LAB68, LAB18, LAB17, [id number] ####Senior Sustainability Advisor: HENNY WADE ([phone])[address] Anion gap [Moles/Vol] 6 mmol/L Normal 3-13 [facility] Comment on above: Order Comment: These orders are set for an approximate date - they can be drawn up to 3 months prior to the Expected Date on this Req.Please send results to: [address] [address] - [phone] if not done at a [facility], please send to:[place] [address]Phone: Idecdhz Name: Anne Marie Peterson 1995Order Created by : Peggy Friedman MA Performed By: #### L AB69, LAB67, LAB68, LAB18, LAB17, [id number] ####Senior Sustainability Advisor: HENNY WADE ([phone])[address] AST [Catalytic activity/Vol] 25 U/L Normal <34 [facility] Comment on above: Order Comment: These orders are set for an approximate date - they can be drawn up to 3 months prior to the Expected Date on this Req.Please send results to: [address] [address] - [phone] if not done at a [facility], please send to:[place] [address]Phone: Dlvxykm Name: Anne Marie Peterson - 1995Order Created by : Peggy Friedman MA Performed By: #### L AB69, LAB67, LAB68, LAB18, LAB17, [id number] ####Senior Sustainability Advisor: HENNY WADE ([phone])[facility])[address] [place] [address] Bilirubin [Mass/Vol] 0.5 mg/dL Normal <1.2 [facility] Comment on above: Order Comment: These orders are set for an approximate date - they can be drawn up to 3 months prior to the Expected Date on this Req.Please send results to: [address] [address] - [phone] if not done at a [facility], please send to:[place] [address]Phone: Reiztvp Name: Anne Marie Peterson 1995Order Created by : Peggy Friedman MA Performed By: #### L AB69, LAB67, LAB68, LAB18, LAB17, [id number] ####Senior Sustainability Advisor: HENNY WADE ([phone])[address] Calcium [Mass/Vol] 9.0 mg/dL Normal 8.4-10.2 [facility] Comment on above: Order Comment: These orders are set for an approximate date - they can be drawn up to 3 months prior to the Expected Date on this Req.Please send results to: [address] [address] - [phone] if not done at a [facility], please send to:[place] [address]Phone: Amupocg Name: Anne Marie Tran 1995Order Created by : Peggy Friedman MA Performed By: #### L AB69, LAB67, LAB68, LAB18, LAB17, [id number] ####Senior Sustainability Advisor: HENNY WADE ([phone])[facility])[address] [place] [address] Chloride [Moles/Vol] 105 mmol/L Normal 98-107 [facility] Comment on above: Order Comment: These orders are set for an approximate date - they can be drawn up to 3 months prior to the Expected Date on this Req.Please send results to: [address] [address] - [phone] if not done at a [facility], please send to:[address] [address]Hbfcq: [phone] Jwuyvqy Name: Anne Marie Peterson 1995Order Created by : Peggy Friedman MA Performed By: #### L AB69, LAB67, LAB68, LAB18, LAB17, [id number] ####Senior Sustainability Advisor: HENNY WADE ([phone])[address] CO2 [Moles/Vol] 29 mmol/L Normal 22-29 [facility] Comment on above: Order Comment: These orders are set for an approximate date - they can be drawn up to 3 months prior to the Expected Date on this Req.Please send results to: [address] [address] - [phone] if not done at a [facility], please send to:[address] [address]Qlxye: [phone] Opcdmfk Name: Anne Marie Peterson 1995Order Created by : Peggy Friedman MA Performed By: #### L AB69, LAB67, LAB68, LAB18, LAB17, [id number] ####Senior Sustainability Advisor: HENNY WADE ([phone])[address] Creatinine [Mass/Vol] 0.66 mg/dL Normal 0.57-1.11 [facility] Comment on above: Order Comment: These orders are set for an approximate date - they can be drawn up to 3 months prior to the Expected Date on this Req.Please send results to: [address] [address] - [phone] if not done at a [facility], please send to:[address], [address]Fwjid: [phone] Vcjcqpa Name: Anne Marie Peterson 1995Order Created by : Peggy Friedman MA Performed By: #### L AB69, LAB67, LAB68, LAB18, LAB17, [id number] ####Senior Sustainability Advisor: HENNY WADE ([phone])[address] GLOMERULAR FILTRATION RATE ML/MIN/1.73 SQ M.PREDICTED >90.0 Normal >60.0 [facility] Comment on above: Order Comment: These orders are set for an approximate date - they can be drawn up to 3 months prior to the Expected Date on this Req.Please send results to: [address] [address] - [phone] if not done at a [facility], please send to:[facility] - [address] [place] [address]Gszkw: [phone] Aevetlo Name: Anne Marie Peterson 1995Order Created by : Peggy Friedman MA Result Comment: Calc ulation based on the Chronic Kidney Disease Epidemiology Collaboration (CKD-EPI) equation refit without adjustment for race Performed By: #### L AB69, LAB67, LAB68, LAB18, LAB17, [id number] ####Senior Sustainability Advisor: HENNY WADE ([phone])[address] Glucose [Mass/Vol] 81 mg/dL Normal 74-100 [facility] Comment on above: Order Comment: These orders are set for an approximate date - they can be drawn up to 3 months prior to the Expected Date on this Req.Please send results to: [address] [place] [address] - [phone] if not done at a [facility], please send to:[address], [address]Xorbj: [phone] Rxgfceh Name: Anne Marie Tran 1995Order Created by : Peggy Friedman MA Performed By: #### L AB69, LAB67, LAB68, LAB18, LAB17, [id number] ####Senior Sustainability Advisor: HENNY WADE ([phone])[facility])[address] [place] [address] Potassium [Moles/Vol] 3.8 mmol/L Normal 3.5-5.1 [facility] Comment on above: Order Comment: These orders are set for an approximate date - they can be drawn up to 3 months prior to the Expected Date on this Req.Please send results to: [address] [address] - [phone] if not done at a [facility], please send to:[address] [address]Elyla: [phone] Eiggeik Name: Anne Marie Tran 1995Order Created by : Peggy Friedman MA Result Comment: [facility] potassium values may be up to 0.5 mmol/L lower than serum values. Performed By: #### L AB69, LAB67, LAB68, LAB18, LAB17, [id number] ####Senior Sustainability Advisor: HENNY WADE ([phone])[facility] ([facility])[address] [place] [address] Protein [Mass/Vol] 6.9 g/dL Normal 6.4-8.3 [facility] Comment on above: Order Comment: These orders are set for an approximate date - they can be drawn up to 3 months prior to the Expected Date on this Req.Please send results to: [address] [address] - [phone] if not done at a [facility], please send to:[address], [address]Mtnlz: [phone] Mxpafhr Name: Anne Marie Tran 1995Order Created by : Peggy Friedman MA Performed By: #### L AB69, LAB67, LAB68, LAB18, LAB17, [id number] ####Senior Sustainability Advisor: HENNY WADE ([phone])[facility] ([facility])[address] [place] [address] Sodium [Moles/Vol] 140 mmol/L Normal 136-145 [facility] Comment on above: Order Comment: These orders are set for an approximate date - they can be drawn up to 3 months prior to the Expected Date on this Req.Please send results to: [address] [address] - [phone] if not done at a [facility], please send to:[address], [address]Nwras: [phone] Mytzvsg Name: Anne Marie Peterson - 1995Order Created by : Peggy Friedman MA Performed By: #### L AB69, LAB67, LAB68, LAB18, LAB17, [id number] ####Senior Sustainability Advisor: HENNY WADE ([phone])[facility] ([facility])[address] [place] [address] Urea nitrogen [Mass/Vol] 7 mg/dL Low 8-21 [facility] Comment on above: Order Comment: These orders are set for an approximate date - they can be drawn up to 3 months prior to the Expected Date on this Req.Please send results to: [address] [address] - [phone] if not done at a [facility], please send to:[address], [address]Ruzeu: [phone] Sghtwrt Name: Anne Marie Peterson - 1995Order Created by : Peggy Friedman MA Performed By: #### L AB69, LAB67, LAB68, LAB18, LAB17, [id number] ####Senior Sustainability Advisor: HENNY WADE ([phone])[address] Cobalamin (Vitamin B12) [Mas s/Vol]on 02-11-2024 Interpretation and review of laboratory results Normal [facility] Comprehensive metabolic 1998 panelon 02-11-2024 Albumin [Mass/Vol] 3.6 g/dL 3.5 - 5.0 g/dL [facility] ALP [Catalytic activity/Vol] 73 U/L 40 - 150 U/L [facility] ALT [Catalytic activity/Vol] 18 U/L NINF - 30 U/L [facility] Anion gap [Moles/Vol] 6 mmol/L 3 - 13 mmol/L [facility] AST [Catalytic activity/Vol] 25 U/L NINF - 34 U/L [facility] Bilirubin [Mass/Vol] 0.5 mg/dL NINF - 1.2 mg/dL [facility] Calcium [Mass/Vol] 9 mg/dL 8.4 - 10. 2 mg/dL [facility] Chloride [Moles/Vol] 105 mmol/L 98 - 10 7 mmol/L [facility] CO2 [Moles/Vol] 29 mmol/L 22 - 29 mmol/L [facility] Creatinine [Mass/Vol] 0.66 mg/dL 0.57 - 1.11 mg/dL [facility] GFR/1.73 sq M.predicted (S/P/Bld) [Vol rate/Area] - PINF [facility] Comment on above: Calculation based on the Chronic Kidney Disease Epidemiology Collaboration (CKD-EPI) equation refit without adjustment for race Glucose [Mass/Vol] 81 mg/dL 74 - 100 mg/dL [facility] Potassium [Moles/Vol] 3.8 mmol/L 3.5 - 5.1 mmol/L [facility] Comment on above: Plasma potassium juanito ues may be up to 0.5 mmol/L lower than serum values. Protein [Mass/Vol] 6.9 g/dL 6.4 - 8.3 g/dL [facility] Sodium [Moles/Vol] 140 mmol/L 136 - 145 mmol/L [facility] Urea nitrogen [Mass/Vol] 7 mg/dL Low 8 - 21 mg/dL [facility] FERRITINon 02-11-2024 Ferritin [Mass/Vol] 13 ng/mL Normal 5-204 [facility] Comment on above: Result Comment: ORDE R COMMENTS:These orders are set for an approximate date - they can be drawn up to 3 months prior to the Expected Date on this Req.Please send results to: [address] [address] - [phone] if not done at a [facility], please send to:[facility] - [address] [place] [address], [address], [address]Efopp: [phone] Aawzgam Name: Anne Marie Peterson - 1995Order Created by : MIS Parisierritin levels below 10 ng/mL have been reported as indicative of iron deficiency anemia. Performed By: #### L AB69, LAB67, LAB68, LAB18, LAB17, [id number] ####Senior Sustainability Advisor: HENNY WADE ([phone])[address] FOLATEon 02-11-2024 FOLATE RESULT 3.8 ng/mL Low 7.0-31.4 [facility] Comment on above: Order Comment: These orders are set for an approximate date - they can be drawn up to 3 months prior to the Expected Date on this Req.Please send results to: [address] [address] - [phone] if not done at a [facility], please send to:[facility] - [address] [place] [address], [address], [address]Giwgs: [phone] Jkpwpew Name: Anne Marie Petreson 1995Order Created by : Peggy Friedman MA Performed By: #### L AB69, LAB67, LAB68, LAB18, LAB17, [id number] ####Senior Sustainability Advisor: HENNY WADE ([phone])[facility] ([facility])[address] [place] [address] Ferritinon 02-11-2024 Ferritin [Mass/Vol] 13 ng/mL 5 - 204 ng/mL [facility] Ferritin [Mass/Vol]on 2023 Interpretation and review of laboratory results Normal [facility] Ferritin levels belo w 10 ng/mL have been reported as indicative of iron deficiency anemia. [facility] Folateon 02-11-2024 Folate [Mass/Vol] 3.8 ng/mL Low 7.0 - 31.4 ng/mL [facility] Folate [Mass/Vol]on 02-11-20 Interpretation and review of laboratory results Abnormal [facility] IRONon 02-11-2024 IRON, TOTAL 17 ug/dL Low 50-170 [facility] Comment on above: Order Comment: These orders are set for an approximate date - they can be drawn up to 3 months prior to the Expected Date on this Req.Please send results to: [address] [address] - [phone] if not done at a [facility], please send to:[facility] - [address] [place] [address], [place] [address]Phone: Sdarjwj Name: Anne Marie Peterson - 1995Order Created by : Peggy Friedman MA Performed By: #### L AB535, LAB94 ####Senior Sustainability Advisor: HENNY WADE ([phone])[facility] ([facility])[address] [place] [address] Iron and Iron binding capaci ty panelon 02-11-2024 Interpretation and review of laboratory results Abnormal [facility] Iron [Mass/Vol] 17 ug/dL Low 50 - 170 ug/dL [facility] LIPID PANELon 02-11-2024 Cholesterol [Mass/Vol] 132 mg/dL Normal <200 [facility] Comment on above: Order Comment: These orders are set for an approximate date - they can be drawn up to 3 months prior to the Expected Date on this Req.Please send results to: [address] [address] - [phone] if not done at a [facility], please send to:[address] [address]Jbiqy: [phone] Eijpzit Name: [facility] 1995Order Created by : Peggy Friedman MA Performed By: #### L AB69, LAB67, LAB68, LAB18, LAB17, [id number] ####Senior Sustainability Advisor: HENNY WADE ([phone])[address] Cholesterol in HDL [Mass/Vol] 32 mg/dL Low >=60 [facility] Comment on above: Order Comment: These orders are set for an approximate date - they can be drawn up to 3 months prior to the Expected Date on this Req.Please send results to: [address] [address] - [phone] if not done at a [facility], please send to:[address] [address]Prqsy: [phone] Gjpjasz Name: [facility] 1995Order Created by : Peggy Friedman MA Performed By: #### L AB69, LAB67, LAB68, LAB18, LAB17, [id number] ####Senior Sustainability Advisor: HENNY WADE ([phone])[address] Cholesterol.total/Gerardo sterol in HDL [Mass ratio] 4 {ratio} Normal [facility] Comment on above: Order Comment: These orders are set for an approximate date - they can be drawn up to 3 months prior to the Expected Date on this Req.Please send results to: [address] [address] - [phone] if not done at a [facility], please send to:[address], [address]Wtbdn: [phone] Czbouic Name: Anne Marie Peterson - 1995Order Created by : Peggy Friedman MA Result Comment: Ref Range:< 3 Low Risk for CHD3-6 Mod Risk for CHD> 6 High Risk for CHD Performed By: #### L AB69, LAB67, LAB68, LAB18, LAB17, [id number] ####Senior Sustainability Advisor: HENNY WADE ([phone])[address] LOW DENSITY LIPOPROTEIN 85 mg/dL Normal 0-<100 [facility] Comment on above: Order Comment: These orders are set for an approximate date - they can be drawn up to 3 months prior to the Expected Date on this Req.Please send results to: [address] [address] - [phone] if not done at a [facility], please send to:[address], [address]Xgzxm: [phone] Fntorju Name: Anne Marie Peterson - 1995Order Created by : Peggy Friedman MA Performed By: #### L AB69, LAB67, LAB68, LAB18, LAB17, [id number] ####Senior Sustainability Advisor: HENNY WADE ([phone])[facility] ([facility])[address] [place] [address] NON-HDL CHOLESTEROL, CALCULATED 100 Normal <130 [facility] Comment on above: Order Comment: These orders are set for an approximate date - they can be drawn up to 3 months prior to the Expected Date on this Req.Please send results to: [address] [address] - [phone] if not done at a [facility], please send to:[address], [address]Exasp: [phone] Jbyobop Name: Anne Marie Tran 1995Order Created by : Peggy Friedman MA Performed By: #### L AB69, LAB67, LAB68, LAB18, LAB17, [id number] ####Senior Sustainability Advisor: HENNY WADE ([phone])[facility])[address] [place] [address] Triglyceride [Mass/Vol] 73 mg/dL Normal <150 [facility] Comment on above: Order Comment: These orders are set for an approximate date - they can be drawn up to 3 months prior to the Expected Date on this Req.Please send results to: [address] [address] - [phone] if not done at [facility] [facility], please send to:[address], [address]Xvlac: [phone] Ylaxbty Name: Anne Marie Tran 1995Order Created by : Peggy Friedman MA Performed By: #### L AB69, LAB67, LAB68, LAB18, LAB17, [id number] ####Senior Sustainability Advisor: HENNY WADE ([phone])[facility] ([facility])[address] [place] [address] VERY LOW DENSITY LIPOPROTEIN, CALCULATED 15 mg/dL Normal <=30 [facility] Comment on above: Order Comment: These orders are set for an approximate date - they can be drawn up to 3 months prior to the Expected Date on this Req.Please send results to: [address] [address] - [phone] if not done at a [facility], please send to:[address], [address]Ygzye: [phone] Irhqake Name: Anne Marie Tran 1995Order Created by : Peggy Friedman MA Performed By: #### L AB69, LAB67, LAB68, LAB18, LAB17, [id number] ####Senior Sustainability Advisor: HENNY WADE ([phone])[facility] ([facility])[address] [place] [address] Lipid 1996 panelon Cholesterol [Mass/Vol] 132 mg/dL NINF - 200 mg/dL [facility] Cholesterol in HDL [Mass/Vol] 32 mg/dL Low 60 - PINF mg/dL [facility] Cholesterol in LDL [Mass/Vol] 85 mg/dL 0 - <100 [facility] Cholesterol.total/Gerardo sterol in HDL [Mass ratio] 4 {ratio} [facility] Comment on above: Ref Range: < 3 Low Risk for CHD 3-6 Mod Risk for CHD > 6 High Risk for CHD NON-HDL CHOLESTEROL, CALCULATED 100 NINF - 130 [facility] Triglyceride [Mass/Vol] 73 mg/dL NINF - 150 mg/dL [facility] VERY LOW DENSITY LIPOPROTEIN, CALCULATED 15 mg/dL NINF - 30 mg/dL [facility] MAGNESIUMon 02-11-2024 Magnesium [Mass/Vol] 1.8 mg/dL Normal 1.6-2.6 [facility] Comment on above: Result Comment: SPENCER Miranda COMMENTS:These orders are set for an approximate date - they can be drawn up to 3 months prior to the Expected Date on this Req.Please send results to: [address] [address] - [phone] if not done at a [facility], please send to:[facility] [address], [address], [address]Opgrs: [phone] Dfbubqq Name: Anne Marie Peterson - 1995Order Created by : Elbert Parisi values can be expected in females during menses. Performed By: #### L AB69, LAB67, LAB68, LAB18, LAB17, [id number] ####Senior Sustainability Advisor: HENNY WADE ([phone])[facility] ([facility] Magnesiumon 02-11-2024 Magnesium [Mass/Vol] 1.8 mg/dL 1.6 - 2 .6 mg/dL [facility] Magnesium [Mass/Vol]on 02-10 Interpretation and review of laboratory results Normal [facility] Higher values can be expected in females during menses. [facility] No Panel Informationon 02-10 [facility] Interpretation and review of laboratory results Abnormal [facility] Progress Noteon 02-11-2024 Progress Note Compliant nightly. Normal [facility] Progress Note Normal [facility] Progress Note Well controlled. Stressed importance of good blood pressure control which will help with control of her afib. Normal [facility] Progress Note Normal [facility] VITAMIN B1, WHOLE BLOOD (BKR QUEST)on 02-11-2024 [facility] VITAMIN B1 (THIAMINE), BLOOD, LC/MS/MS 98 nmol/L Normal 78-185 [facility] Comment on above: Order Comment: These orders are set for an approximate date - they can be drawn up to 3 months prior to the Expected Date on this Req.Please send results to: [address] [address] - [phone] if not done at a [facility], please send to:[facility] [place] - [address] [place] [address], [address], [address]Stiai: [phone] Dacxowz Name: Anne Marie Peterson - 1995Order Created by : Peggy Friedman MA Result Comment: Precious min supplementation within 24 hours prior toblood draw may affect the accuracy of the results.This test was developed and its analytical performancecharacteristics have been determined by [employer] [place], [place]. It hasnot been cleared or approved by the U.S. Food and DrugAdministration. This assay has been validated pursuantto the CLIA regulations and is used for clinicalpurposes.Test Performed by [facility],MysteryD Hubert,[address] [place], [place] [address]Jffbyuxniranjan Seth M.D., Ph.D., Director of [phone], CLIA [id number] Performed By: #### L AB745 ####BERD (AMDBEAKER)[id number] [place] [facility] VITAMIN B12on 02-11-2024 Cobalamin (Vitamin B12) [Mass/Vol] 302 pg/mL Normal 213-816 [facility] Comment on above: Order Comment: These orders are set for an approximate date - they can be drawn up to 3 months prior to the Expected Date on this Req.Please send results to: [address] [id number] - [phone] if not done at a [facility], please send to:[address], [address]Voxuu: [phone] Emqlzpt Name: Anne Marie Krisetn Tran 1995Order Created by : Peggy Friedman MA Performed By: #### L AB69, LAB67, LAB68, LAB18, LAB17, [id number] ####Senior Sustainability Advisor: HENNY WADE ([phone])[address] VITAMIN D DEFICIENCY SCREENI NG (VIT D 25)on 02-11-2024 VIT D 25-OH, TOTAL 14 ng/mL Low >20 [facility] Comment on above: Result Comment: SPENCER Miranda COMMENTS:These orders are set for an approximate date - they can be drawn up to 3 months prior to the Expected Date on this Req.Please send results to: [address] [address] - [phone] if not done at a [facility], please send to:[address], [address]Ledjl: [phone] Kpeliun Name: Anne Marie Kristen Tran 1995Order Created by : MARK ANTHONY Parisiarget concentration: 30 - 40 ng/mL; toxicity seen at concentrations >100 ng/mLTherapy is based on measurement of Total 25-OHD with the following classification levels:Less than 20 ng/mL: Indicative of Vit D -72 ng/mL: Suggests Vit D insufficiencyOptimal: Greater than or equal to 30 ng/mLTest performed by [employer] Competitive Immunoassay, measuring Total Vitamin D, not individual fractions. Performed By: #### L AB535, LAB94 ####Senior Sustainability Advisor: HENNY WADE ([phone])[facility] ([facility])[address] [place] [address] Vitamin B12on 02-11-2024 Cobalamin (Vitamin B12) [Mass/Vol] 302 pg/mL 213 - 816 pg/mL [facility] Vitamin D Deficiency Screeni ng (Vit D 25)on 02-11-2024 25-hydroxyvitamin D3 [Mass/Vol] 14 ng/mL Low 20 - PINF ng/mL [facility] ZINC (BKR QUEST)on QUEST ZINC 55 mcg/dL Low 60-130 [facility] Comment on above: Order Comment: These orders are set for an approximate date - they can be drawn up to 3 months prior to the Expected Date on this Req.Please send results to: [address] [address] - [phone] if not done at a [facility], please send to:[facility] [address], [address]Asjtn: [phone] Zeyvkhd Name: Anne Marie Peterson - 1995Order Created by : Peggy Friedman MA Result Comment: This test was developed and its analytical performancecharacteristics have been determined by [employer] [place], [place]. It hasnot been cleared or approved by the U.S. Food and DrugAdministration. This assay has been validated pursuantto the CLIA regulations and is used for clinicalpurposes.Test Performed by [facility],MysteryD [address]ert,[address] [place], [place] [address]Gpkifzx W Rolo, M.D., Ph.D., Director of [phone], CLIA [id number] Performed By: #### L AB581 ####BERD (AMDBEAKER)[id number] [place] [facility] MRCP Abdomen without Contras ton 12-22-2023 MRCP Abdomen without Contrast Normal [facility] Bilirubin, Directon 12-17-19 Bilirubin.direct [Mass/Vol] 0.32 mg/dL High 0.00-0.30 [facility] Comment on above: Performed By: #### L 100.0100, L500.4050, L501.4700 ####[facility] [address] [place], [address] CBC W/Diff, Automatedon 11-23 Absolute Lymph 2.04 X10 3/uL Normal 0.83-4.51 [facility] Comment on above: Order Comment: DR.SM CHRISTIAN AND DORIS ORDERED CBCD Performed By: #### L 100.0100, L500.4050, L501.4700 ####[facility] [address] [place], [address] Absolute Neut 2.9 X10 3/uL Normal 2.0-7.7 [facility] Comment on above: Order Comment: DR.SM CHRISTIAN AND DORIS ORDERED CBCD Performed By: #### L 100.0100, L500.4050, L501.4700 ####[facility] [address] [place], [address] Basophils/100 WBC (Bld) 0.6 % Normal 0-1 [facility] Comment on above: Order Comment: DR.SM CHRISTIAN AND DORIS ORDERED CBCD Performed By: #### L 100.0100, L500.4050, L501.4700 ####[facility] [address] [place], [address] Eosinophils/100 WBC (Bld) 0.6 % Normal 0-5 [facility] Comment on above: Order Comment: DR.SM CHRISTIAN AND DORIS ORDERED CBCD Performed By: #### L 100.0100, L500.4050, L501.4700 ####[facility] [address] [place], [address] Erythrocyte distribution width (RBC) [Ratio] 16.0 % High 11.6-14.6 [facility] Comment on above: Order Comment: DR.SM CHRISTIAN AND DORIS ORDERED CBCD Performed By: #### L 100.0100, L500.4050, L501.4700 ####[facility] [address] [place], [address] Hematocrit (Bld) [Volume fraction] 37.1 % Normal 37-47 [facility] Comment on above: Order Comment: DR.SM BELTRAN ORDERED CBCD Performed By: #### L 100.0100, L500.4050, L501.4700 ####[facility] [address] [place], [address] Hemoglobin (Bld) [Mass/Vol] 11.4 g/dL Low 12.0-15.0 [facility] Comment on above: Order Comment: DR.SM BELTRAN ORDERED CBCD Performed By: #### L 100.0100, L500.4050, L501.4700 ####[facility] [address] [place], [address] IG% 0.400 Normal 0.0-0.9 [facility] Comment on above: Order Comment: DR.SM CHRISTIAN AND DORIS ORDERED CBCD Result Comment: IG% - Immature Granulocytes (promyelocytes, myelocytes andmetamyelocytes) > 1% indicates that a LEFT SHIFT is Present. Performed By: #### L 100.0100, L500.4050, L501.4700 ####[facility] [address] [place], [address] Lymphocytes/100 WBC (Bld) 38.0 % Normal 19-41 [facility] Comment on above: Order Comment: DR.SM CHRISTIAN AND DORIS ORDERED CBCD Performed By: #### L 100.0100, L500.4050, L501.4700 ####[facility] [address] [place], [address] MCH (RBC) [Entitic mass] 22.7 pg Low 27.0-32.0 [facility] Comment on above: Order Comment: DR.SM CHRISTIAN AND DORIS ORDERED CBCD Performed By: #### L 100.0100, L500.4050, L501.4700 ####[facility] [address] [place], [address] MCHC (RBC) [Mass/Vol] 30.7 g/dL Low 32-36 [facility] Comment on above: Order Comment: DR.SM CHRISTIAN AND DORIS ORDERED CBCD Performed By: #### L 100.0100, L500.4050, L501.4700 ####[facility] [address] [place], [address] MCV (RBC) [Entitic vol] 73.9 fL Low 81-99 [facility] Comment on above: Order Comment: DR.SM CHRISTIAN AND DORIS ORDERED CBCD Performed By: #### L 100.0100, L500.4050, L501.4700 ####[facility] [address] [place], [address] Monocytes/100 WBC (Bld) 7.1 % Normal 0-10 [facility] Comment on above: Order Comment: DR.SM CHRISTIAN AND DORIS ORDERED CBCD Performed By: #### L 100.0100, L500.4050, L501.4700 ####[facility] [address] [place], [address] Neutrophils/100 WBC (Bld) 53.3 % Normal 47-70 [facility] Comment on above: Order Comment: DR.SM CHRISTIAN AND DORIS ORDERED CBCD Performed By: #### L 100.0100, L500.4050, L501.4700 ####[facility] [address] [place], [address] Nucleated RBC (Bld) [#/Vol] 0 10*3/uL Normal 0-5 [facility] Comment on above: Order Comment: DR.SM CHRISTIAN AND DORIS ORDERED CBCD Performed By: #### L 100.0100, L500.4050, L501.4700 ####[facility] [address] [place], [address] Platelet mean volume (Bld) [Entitic vol] 10.3 fL Normal 6.2-12.0 [facility] Comment on above: Order Comment: DR.SM CHRISTIAN AND DORIS ORDERED CBCD Performed By: #### L 100.0100, L500.4050, L501.4700 ####[facility] [address] [place], [address] Platelets (Bld) [#/Vol] 344 10*3/uL Normal 150-450 [facility] Comment on above: Order Comment: DR.SM CHRISTIAN AND DORIS ORDERED CBCD Performed By: #### L 100.0100, L500.4050, L501.4700 ####[facility] [address] [place], [address] RBC (Bld) [#/Vol] 5.02 10*6/uL Normal 4.2-5.4 [facility] Comment on above: Order Comment: DR.SM CHRISTIAN AND DORIS ORDERED CBCD Performed By: #### L 100.0100, L500.4050, L501.4700 ####[facility] [address] [place], [address] RDW SD 42.7 fl Normal 35.1-43.9 [facility] Comment on above: Order Comment: DR.SM CHRISTIAN AND DORIS ORDERED CBCD Performed By: #### L 100.0100, L500.4050, L501.4700 ####[facility] [address] [place], [address] WBC (Bld) [#/Vol] 5.4 10*3/uL Normal 4.4-11.0 [facility] Comment on above: Order Comment: DR.SM CHRISTINA AND DORIS ORDERED CBCD Performed By: #### L 100.0100, L500.4050, L501.4700 ####[facility] [address] [place], [address] Comprehensive Metabolic [facility] 12-17-2023 Albumin [Mass/Vol] 3.6 g/dL Normal 3.2-5.0 [facility] Comment on above: Performed By: #### L 100.0100, L500.4050, L501.4700 ####[facility] [address] [place], [address] Albumin/Globulin [Mass ratio] 0.9 {ratio} Normal 0.9-2.4 [facility] Comment on above: Performed By: #### L 100.0100, L500.4050, L501.4700 ####[facility] [address] [place], [address] ALK P 75 U/L Normal 45-117 [facility] Comment on above: Performed By: #### L 100.0100, L500.4050, L501.4700 ####[facility] [address] [place], [address] ALT [Catalytic activity/Vol] 30 U/L Normal 13-56 [facility] Comment on above: Performed By: #### L 100.0100, L500.4050, L501.4700 ####[facility] [address] [place], [address] AST [Catalytic activity/Vol] 27 U/L Normal 15-37 [facility] Comment on above: Performed By: #### L 100.0100, L500.4050, L501.4700 ####[facility] [address] [place], [address] Bilirubin [Mass/Vol] 0.60 mg/dL Normal 0.20-1.00 [facility] Comment on above: Result Comment: For patients on eltrombopag therapy, use of Dimension [place] TBIL is not recommended. Performed By: #### L 100.0100, L500.4050, L501.4700 ####[facility] [address] [place], [address] BUN/CRE 12.4 RATIO Normal 10-20 [facility] Comment on above: Performed By: #### L 100.0100, L500.4050, L501.4700 ####[facility] [address] [place], [address] CA,Total 9.4 mg/dL Normal 8.5-10.1 [facility] Comment on above: Performed By: #### L 100.0100, L500.4050, L501.4700 ####[facility] [address] [place], [address] Chloride [Moles/Vol] 110 mmol/L High 98-107 [facility] Comment on above: Performed By: #### L 100.0100, L500.4050, L501.4700 ####[facility] [address] [place], [address] CO2 [Moles/Vol] 25.0 mmol/L Normal 21.0-32.0 [facility] Comment on above: Performed By: #### L 100.0100, L500.4050, L501.4700 ####[facility] [address] [place], [address] Creatinine [Mass/Vol] 0.65 mg/dL Normal 0.55-1.02 [facility] Comment on above: Result Comment: The validity of the calculated GFR GFRAA in patients over70 years has not been determined. Clinical correlation isessential. Performed By: #### L 100.0100, L500.4050, L501.4700 ####[facility] [address] [place], [address] EST GFR - AA 140 mL/min Normal >60 [facility] Comment on above: Result Comment: Afri can Bahraini GFR Calc Performed By: #### L 100.0100, L500.4050, L501.4700 ####[facility] [address] [place], [address] GAP 7 Normal 5-15 [facility] Comment on above: Performed By: #### L 100.0100, L500.4050, L501.4700 ####[facility] [address] [place], [address] GFR/1.73 sq M.predicted among non-blacks MDRD (S/P/Bld) [Vol rate/Area] 116 mL/min/{1.73_m2} Normal >60 [facility] Comment on above: Result Comment: Non- GFR Calc Performed By: #### L 100.0100, L500.4050, L501.4700 ####[facility] [address] [place], [address] Globulin (S) [Mass/Vol] 4.0 g/dL Normal 2.2-4.2 [facility] Comment on above: Performed By: #### L 100.0100, L500.4050, L501.4700 ####[facility] [address] [place], [address] Glucose [Mass/Vol] 86 mg/dL Normal 74-106 [facility] Comment on above: Performed By: #### L 100.0100, L500.4050, L501.4700 ####[facility] [address] [place], [address] Potassium [Moles/Vol] 3.7 mmol/L Normal 3.5-5.1 [facility] Comment on above: Performed By: #### L 100.0100, L500.4050, L501.4700 ####[facility] [address] [place], [address] Sodium [Moles/Vol] 141 mmol/L Normal 136-145 [facility] Comment on above: Performed By: #### L 100.0100, L500.4050, L501.4700 ####[facility] [address] [place], [address] T PROT 7.6 g/dL Normal 6.4-8.2 [facility] Comment on above: Performed By: #### L 100.0100, L500.4050, L501.4700 ####[facility] [address] [place], [address] Urea nitrogen [Mass/Vol] 8 mg/dL Normal 7-18 [facility] Comment on above: Performed By: #### L 100.0100, L500.4050, L501.4700 ####[facility] [address] [place], [address] Credit Relationship Manager Office Visit Reporton 12-17-2023 Credit Relationship Manager Office Visit Report Normal [facility] Partial Thromboplast Timeon 11-25-2023 aPTT Coag (Bld) [Time] 31.6 s Normal 24.1-36.2 [facility] Comment on above: Performed By: #### L 100.1900, L300.3900, L300.4310 ####[facility] [address] [place], [address] Platelet Counton 11-25-2023 Platelets (Bld) [#/Vol] 259 10*3/uL Normal 150-450 [facility] Comment on above: Performed By: #### L 100.1900, L300.3900, L300.4310 ####[facility] [address] [place], [address] Procedure Reporton Procedure Report Normal [facility] Prothrombin Time w/INRon INR Coag (PPP) [Relative time] 1.0 {INR} Normal [facility] Comment on above: Performed By: #### L 100.1900, L300.3900, L300.4310 ####[facility] [address] [place], [address] PT Coag (PPP) [Time] 13.5 s Normal 11.7-14.9 [facility] Comment on above: Performed By: #### L 100.1900, L300.3900, L300.4310 ####[facility] [address] [place], [address] Trichrome (control)on 2023 Trichrome (control) Normal [facility] Comment on above: Performed By: #### P TRI ####[facility] [address] [place], [address] 36on 11-19-2023 36 Noted and reviewed, thanks Will be scanned [facility] 36on 11-17-2023 36 Records received, placed in physician folder for review. [facility] 36on 11-16-2023 [email or web address] [address] Yang Friend [address], [place] [address] ? [address] [place] FAX # [phone] Request for record and work up from 11/11/2023 faxed and confirmation received. Will await fax. Normal [facility] 36 ----- Message from Miley Moise PA-C sent at 11/15/2023 2:42 PM EDT ----- JACINTA team- please obtain OV note and workup from 11/[address] Malone at [facility] in [place], thanks Normal [facility] PAP I-G w/rfx hrHPV-Aptimaon 11-16-2023 ADEQ Comment Normal . [facility] Comment on above: Order Comment: Speci men Comment: [id number] Comment: Source.............Cervix;EndocervixSpecimen Comment: No. of containers..01 ThinPrep Vial Result Comment: Sati sfactory for evaluation. Endocervical and/or squamous metaplasticcells (endocervical component) are present. Performed By: #### L 7400.0353 ####[facility] [address] [place], [place], [address] COMM . Normal . [facility] Comment on above: Order Comment: Speci men Comment: [id number] Comment: Source.............Cervix;EndocervixSpecimen Comment: No. of containers..01 ThinPrep Vial Performed By: #### L 7400.0353 ####[facility] [address] [place], [place], [address] COMMENT Comment Normal . [facility] Comment on above: Order Comment: Speci men Comment: [id number] Comment: Source.............Cervix;EndocervixSpecimen Comment: No. of containers..01 ThinPrep Vial Result Comment: This liquid based ThinPrep(R) pap test was screened withthe use of an image guided system. Performed By: #### L 7400.0353 ####[facility] [address] [place], [place], [address] DIAG Comment Normal . [facility] Comment on above: Order Comment: Speci men Comment: [id number] Comment: Source.............Cervix;EndocervixSpecimen Comment: No. of containers..01 ThinPrep Vial Result Comment: NEGA TIVE FOR INTRAEPITHELIAL LESION OR MALIGNANCY. Performed By: #### L 7400.0353 ####[facility] [address] [place], [address] HPV RFLX Comment Normal . [facility] Comment on above: Order Comment: Speci men Comment: [id number] Comment: Source.............Cervix;EndocervixSpecimen Comment: No. of containers..01 ThinPrep Vial Result Comment: The HPV DNA reflex criteria were not met with this specimenresult therefore, no HPV testing was performed.Performed at: [facility] [address] [place], [place] [id number] Director: Frankie Patino MD, Phone: [phone] at: [facility] [address] [id number] Director: Ese Pastor MD, Phone: [phone] Performed By: #### L 7400.0353 ####[facility] [address] [place], [place], [address] PAPSMR Comment Normal . [facility] Comment on above: Order Comment: Speci men Comment: [id number] Comment: Source.............Cervix;EndocervixSpecimen Comment: No. of containers..01 ThinPrep Vial Result Comment: The Pap smear is a screening test designed to aid in thedetection of premalignant and malignant conditions of theuterine cervix. It is not a diagnostic procedure andshould not be used as the sole means of detecting cervicalcancer. Both false-positive and false-negative reports dooccur. Performed By: #### L 7400.0353 ####[facility] [address] [place], [address] PERFORM Comment Normal . [facility] Comment on above: Order Comment: Speci men Comment: [id number] Comment: Source.............Cervix;EndocervixSpecimen Comment: No. of containers..01 ThinPrep Vial Result Comment: Hyacinth Hendrickson, Electrophysiology Nurse Practitioner (ASCP) Performed By: #### L 7400.0353 ####[facility] [address] [place], [place], [phone] 29on 11-15-2023 29 Addended by: JESSA COLON on: 02/11/2024 10:11 AM Modules accepted: Orders Normal [facility] ANCAon 11-15-2023 Atypical pANCA <1:20 Normal Neg:<1:20 [facility] Comment on above: Order Comment: Test( s) 924096-Xououw, Serum or Plasmawas developed and its performance characteristicsdetermined by [facility]. It has not been cleared or approvedby the Food and Drug Administration. Result Comment: The atypical pANCA pattern has been observed in asignificant percentage of patients with ulcerative colitis,primary sclerosing cholangitis and autoimmune hepatitis. Performed By: #### L 803.2200, L3100.6900, L3200.0500, L3300.0100, L3300.1200, L3400.0700, L3410.2400, L101.9900, L500.4050, L501.2450, L501.4700, L501.6710, L800.1280, L3100.5440 ####[facility] [address] [place], [place], [phone] Cytoplasmic Ab <1:20 Normal Neg:<1:20 [facility] Comment on above: Order Comment: Test( s) 599798-Likizr, Serum or Plasmawas developed and its performance characteristicsdetermined by just.me. It has not been cleared or approvedby the Food and Drug Administration. Performed By: #### L 803.2200, L3100.6900, L3200.0500, L3300.0100, L3300.1200, L3400.0700, L3410.2400, L101.9900, L500.4050, L501.2450, L501.4700, L501.6710, L800.1280, L3100.5440 ####[facility] [address] [place], [place], [phone] Perinuclear Ab. <1:20 Normal Neg:<1:20 [facility] Comment on above: Order Comment: Test( s) 096952-Vekgki, Serum or Plasmawas developed and its performance characteristicsdetermined by just.me. It has not been cleared or approvedby the Food and Drug Administration. Result Comment: The presence of positive fluorescence exhibiting P-ANCA orC-ANCA patterns alone is not specific for the diagnosis ofWegener's Granulomatosis (WG) or microscopic polyangiitis.Decisions about treatment should not be based solely onANCA IFA results. The International ANCA Group Consensusrecommends follow up testing of positive sera with both UT-3 and MPO-ANCA enzyme immunoassays. As many as 5% serumsamples are positive only by EIA. Ref. AM J Clin Pnovny2000;111:507-513. Performed By: #### L 803.2200, L3100.6900, L3200.0500, L3300.0100, L3300.1200, L3400.0700, L3410.2400, L101.9900, L500.4050, L501.2450, L501.4700, L501.6710, L800.1280, L3100.5440 ####[facility] [address] [place], [place], [phone] Angiotensin Convert Enzymeon 11-15-2023 ANGIOT-CONV.ENZ 86 U/L High 14-82 [facility] Comment on above: Order Comment: Test( s) 777909-Ssbxzu, Serum or Plasmawas developed and its performance characteristicsdetermined by just.me. It has not been cleared or approvedby the Food and Drug Administration. Performed By: #### L 803.2200, L3100.6900, L3200.0500, L3300.0100, L3300.1200, L3400.0700, L3410.2400, L101.9900, L500.4050, L501.2450, L501.4700, L501.6710, L800.1280, L3100.5440 ####[facility] [address] [place], [address] Anti-Smooth Muscle ABSon ANTISMOOTH MUSC 21 Units Abnormal 0-19 [facility] Comment on above: Order Comment: Test( s) 168902-Jmnxrc, Serum or Plasmawas developed and its performance characteristicsdetermined by just.me. It has not been cleared or approvedby the Food and Drug Administration. Result Comment: Nega tive 0 - 19 Weak positive 20 - 30 Moderate to strong positive >30 Actin Antibodies are found in 52-85% of patients with autoimmune hepatitis or chronic active hepatitis and in 22% of patients with primary biliary cirrhosis. Performed By: #### L 803.2200, L3100.6900, L3200.0500, L3300.0100, L3300.1200, L3400.0700, L3410.2400, L101.9900, L500.4050, L501.2450, L501.4700, L501.6710, L800.1280, L3100.5440 ####[facility] [address] [place], [place], [phone] Celiac Disease Profileon ENDOMYSIAL IGA Negative Normal Negative [facility] Comment on above: Order Comment: Test( s) 003047-Othdhh, Serum or Plasmawas developed and its performance characteristicsdetermined by just.me. It has not been cleared or approvedby the Food and Drug Administration. Result Comment: Note : Specimen is icteric. Performed By: #### L 803.2200, L3100.6900, L3200.0500, L3300.0100, L3300.1200, L3400.0700, L3410.2400, L101.9900, L500.4050, L501.2450, L501.4700, L501.6710, L800.1280, L3100.5440 ####[facility] [address] [place], [place], [phone] IMMUNOGLOB A QN 540 mg/dL High 87-352 [facility] Comment on above: Order Comment: Test( s) 382487-Yzlumf, Serum or Plasmawas developed and its performance characteristicsdetermined by just.me. It has not been cleared or approvedby the Food and Drug Administration. Performed By: #### L 803.2200, L3100.6900, L3200.0500, L3300.0100, L3300.1200, L3400.0700, L3410.2400, L101.9900, L500.4050, L501.2450, L501.4700, L501.6710, L800.1280, L3100.5440 ####[facility] [address] [place], [address] tTG IGA <2 Normal 0-3 [facility] Comment on above: Order Comment: Test( s) 924683-Cejpeq, Serum or Plasmawas developed and its performance characteristicsdetermined by just.me. It has not been cleared or approvedby the Food and Drug Administration. Result Comment: Nega tive 0 - 3 Weak Positive 4 - 10 Positive >10 Tissue Transglutaminase (tTG) has been identified as the endomysial antigen. Studies have demonstr- ated that endomysial IgA antibodies have over 99% specificity for gluten sensitive enteropathy. Performed By: #### L 803.2200, L3100.6900, L3200.0500, L3300.0100, L3300.1200, L3400.0700, L3410.2400, L101.9900, L500.4050, L501.2450, L501.4700, L501.6710, L800.1280, L3100.5440 ####[facility] [address] [place], [address] Ceruloplasminon 11-15-2023 CERULOPLASMIN 25.0 mg/dL Normal 19.0-39.0 [facility] Comment on above: Order Comment: Test( s) 736070-Kgcrvz, Serum or Plasmawas developed and its performance characteristicsdetermined by just.me. It has not been cleared or approvedby the Food and Drug Administration. Performed By: #### L 803.2200, L3100.6900, L3200.0500, L3300.0100, L3300.1200, L3400.0700, L3410.2400, L101.9900, L500.4050, L501.2450, L501.4700, L501.6710, L800.1280, L3100.5440 ####[facility] [address] [place], [place], [phone] Copper, Serum or Plasmaon COPPER, SERUM 96 ug/dL Normal 80-158 [facility] Comment on above: Order Comment: Test( s) 780088-Fozaaw, Serum or Plasmawas developed and its performance characteristicsdetermined by just.me. It has not been cleared or approvedby the Food and Drug Administration. Result Comment: Dete ction Limit = 5Performed at: [facility] [address] [id number] Director: Xavier Salas PhD, Phone: [phone] at: [facility] [address] [id number] Director: Ayo Burns MD, Phone: [phone] Performed By: #### L 803.2200, L3100.6900, L3200.0500, L3300.0100, L3300.1200, L3400.0700, L3410.2400, L101.9900, L500.4050, L501.2450, L501.4700, L501.6710, L800.1280, L3100.5440 ####[facility] [address] [place], [address] IgG Subclasseson 11-15-2023 IgG, SUBCLASS 1 1356 mg/dL High 248-810 [facility] Comment on above: Order Comment: Test( s) 958425-Yyupnh, Serum or Plasmawas developed and its performance characteristicsdetermined by just.me. It has not been cleared or approvedby the Food and Drug Administration. Performed By: #### L 803.2200, L3100.6900, L3200.0500, L3300.0100, L3300.1200, L3400.0700, L3410.2400, L101.9900, L500.4050, L501.2450, L501.4700, L501.6710, L800.1280, L3100.5440 ####[facility] [address] [place], [address] IgG, SUBCLASS 2 273 mg/dL Normal 130-555 [facility] Comment on above: Order Comment: Test( s) 186057-Pjnrme, Serum or Plasmawas developed and its performance characteristicsdetermined by just.me. It has not been cleared or approvedby the Food and Drug Administration. Performed By: #### L 803.2200, L3100.6900, L3200.0500, L3300.0100, L3300.1200, L3400.0700, L3410.2400, L101.9900, L500.4050, L501.2450, L501.4700, L501.6710, L800.1280, L3100.5440 ####[facility] [address] [place], [address] IgG, SUBCLASS 3 > 219 High 15-102 [facility] Comment on above: Order Comment: Test( s) 530477-Ypcjfs, Serum or Plasmawas developed and its performance characteristicsdetermined by just.me. It has not been cleared or approvedby the Food and Drug Administration. Performed By: #### L 803.2200, L3100.6900, L3200.0500, L3300.0100, L3300.1200, L3400.0700, L3410.2400, L101.9900, L500.4050, L501.2450, L501.4700, L501.6710, L800.1280, L3100.5440 ####[facility] [address] [place], [place], [address] IgG, SUBCLASS 4 70 mg/dL Normal 2-96 [facility] Comment on above: Order Comment: Test( s) 981032-Lkgypr, Serum or Plasmawas developed and its performance characteristicsdetermined by just.me. It has not been cleared or approvedby the Food and Drug Administration. Performed By: #### L 803.2200, L3100.6900, L3200.0500, L3300.0100, L3300.1200, L3400.0700, L3410.2400, L101.9900, L500.4050, L501.2450, L501.4700, L501.6710, L800.1280, L3100.5440 ####[facility] [address] [place], [place], [address] IGG,QUANT 2173 mg/dL High 586-1602 [facility] Comment on above: Order Comment: Test( s) 730068-Lykvij, Serum or Plasmawas developed and its performance characteristicsdetermined by just.me. It has not been cleared or approvedby the Food and Drug Administration. Performed By: #### L 803.2200, L3100.6900, L3200.0500, L3300.0100, L3300.1200, L3400.0700, L3410.2400, L101.9900, L500.4050, L501.2450, L501.4700, L501.6710, L800.1280, L3100.5440 ####[facility] [address] [place], [place], [address] Progress Noteon 11-15-2023 Progress Note Normal [facility] DANGELO Comprehensive Panelon DANGELO TABLE Comment Normal . [facility] Comment on above: Result Comment: Auto antibody Disease Association --------- Condition Frequency ---------Antinuclear Antibody, SLE, mixed connectiveDirect (DANGELO-D) tissue diseases ---------dsDNA SLE 40 - 60% ---------Chromatin Drug induced SLE 90% SLE 48 - 97% ---------SSA (Ro) SLE 25 - 35% Sjogren's Syndrome 40 - 70% Lupus 100% ---------SSB (La) SLE 10% Sjogren's Syndrome 30% ---------Sm (anti-Catalan) SLE 15 - 30% ---------HOT TAMALE WORKER Mixed Connective Tissue Disease 95%(U1 nRNP, SLE 30 - 50%anti-ribonucleoprotein) Polymyositis and/or Dermatomyositis 20% ---------Scl-70 (antiDNA Scleroderma (diffuse) 20 - 35%topoisomerase) Crest 13% ---------Hollie-1 Polymyositis and/or Dermatomyositis 20 - 40% ---------Centromere B Scleroderma - Crest variant 80% Performed By: #### L 803.2200, L3100.6900, L3200.0500, L3300.0100, L3300.1200, L3400.0700, L3410.2400, L101.9900, L500.4050, L501.2450, L501.4700, L501.6710, L800.1280, L3100.5440 ####[facility] [address] [place], [address] ANTI-CENT B AB <0.2 Normal 0.0-0.9 [facility] Comment on above: Performed By: #### L 803.2200, L3100.6900, L3200.0500, L3300.0100, L3300.1200, L3400.0700, L3410.2400, L101.9900, L500.4050, L501.2450, L501.4700, L501.6710, L800.1280, L3100.5440 ####[facility] [address] [place], [place], [phone] ANTI-DNA (DS)AB <1 Normal 0-9 [facility] Comment on above: Result Comment: Nega tive <5 Equivocal 5 - 9 Positive >9 Performed By: #### L 803.2200, L3100.6900, L3200.0500, L3300.0100, L3300.1200, L3400.0700, L3410.2400, L101.9900, L500.4050, L501.2450, L501.4700, L501.6710, L800.1280, L3100.5440 ####[facility] [address] [place], [address] ANTI-HOLLIE-1 <0.2 Normal 0.0-0.9 [facility] Comment on above: Performed By: #### L 803.2200, L3100.6900, L3200.0500, L3300.0100, L3300.1200, L3400.0700, L3410.2400, L101.9900, L500.4050, L501.2450, L501.4700, L501.6710, L800.1280, L3100.5440 ####[facility] [address] [place], [address] ANTI-SS-A < 0.2 Normal 0.0-0.9 [facility] Comment on above: Performed By: #### L 803.2200, L3100.6900, L3200.0500, L3300.0100, L3300.1200, L3400.0700, L3410.2400, L101.9900, L500.4050, L501.2450, L501.4700, L501.6710, L800.1280, L3100.5440 ####[facility] [address] [place], [place], [phone] ANTI-SS-B < 0.2 Normal 0.0-0.9 [facility] Comment on above: Performed By: #### L 803.2200, L3100.6900, L3200.0500, L3300.0100, L3300.1200, L3400.0700, L3410.2400, L101.9900, L500.4050, L501.2450, L501.4700, L501.6710, L800.1280, L3100.5440 ####[facility] [address] [place], [address] ANTICHROMATIN <0.2 Normal 0.0-0.9 [facility] Comment on above: Performed By: #### L 803.2200, L3100.6900, L3200.0500, L3300.0100, L3300.1200, L3400.0700, L3410.2400, L101.9900, L500.4050, L501.2450, L501.4700, L501.6710, L800.1280, L3100.5440 ####[facility] [address] [place], [place], [phone] ANTISCLERODERM <0.2 Normal 0.0-0.9 [facility] Comment on above: Performed By: #### L 803.2200, L3100.6900, L3200.0500, L3300.0100, L3300.1200, L3400.0700, L3410.2400, L101.9900, L500.4050, L501.2450, L501.4700, L501.6710, L800.1280, L3100.5440 ####[facility] [address] [place], [place], [phone] HOT TAMALE WORKER Ab 0.3 AI Normal 0.0-0.9 [facility] Comment on above: Performed By: #### L 803.2200, L3100.6900, L3200.0500, L3300.0100, L3300.1200, L3400.0700, L3410.2400, L101.9900, L500.4050, L501.2450, L501.4700, L501.6710, L800.1280, L3100.5440 ####[facility] [address] [place], [place], [phone] CATALAN Ab <0.2 Normal 0.0-0.9 [facility] Comment on above: Performed By: #### L 803.2200, L3100.6900, L3200.0500, L3300.0100, L3300.1200, L3400.0700, L3410.2400, L101.9900, L500.4050, L501.2450, L501.4700, L501.6710, L800.1280, L3100.5440 ####[facility] [address] [place], [address] Anti-Mitochondrial ABon 10-24 ANTIMITOCHON AB <20.0 Normal 0.0-20.0 [facility] Comment on above: Result Comment: Nega tive 0.0 - 20.0 Equivocal 20.1 - 24.9 Positive >24.9Mitochondrial (M2) Antibodies are found in 90-96% ofpatients with primary biliary cirrhosis.Performed at: [facility] [address] [id number] Director: Xavier Salas PhD, Phone: [phone] Performed By: #### L 803.2200, L3100.6900, L3200.0500, L3300.0100, L3300.1200, L3400.0700, L3410.2400, L101.9900, L500.4050, L501.2450, L501.4700, L501.6710, L800.1280, L3100.5440 ####[facility] [address] [place], [address] Bilirubin, Directon 09-19-20 24 Bilirubin.direct [Mass/Vol] 1.88 mg/dL High 0.00-0.30 [facility] Comment on above: Performed By: #### L 803.2200, L3100.6900, L3200.0500, L3300.0100, L3300.1200, L3400.0700, L3410.2400, L101.9900, L500.4050, L501.2450, L501.4700, L501.6710, L800.1280, L3100.5440 ####[facility] [address] [place], [place], [address] CRPon 11-11-2023 C-REACTIVE PROT 8.60 mg/L High 0.0-3.0 [facility] Comment on above: Result Comment: C-Re active Protein (CRP) provides useful information for thediagnosis, therapy and monitoring of inflammatory processesand associated diseases. For the evaluation of Relative Riskfor Cardiovascular Disease, a High Sensitivity CRP (HSCRP)should be ordered. Performed By: #### L 803.2200, L3100.6900, L3200.0500, L3300.0100, L3300.1200, L3400.0700, L3410.2400, L101.9900, L500.4050, L501.2450, L501.4700, L501.6710, L800.1280, L3100.5440 ####[facility] [address] [place], [place], [phone] Comprehensive Metabolic Prof ilon 11-11-2023 Albumin [Mass/Vol] 3.1 g/dL Low 3.2-5.0 [facility] Comment on above: Performed By: #### L 803.2200, L3100.6900, L3200.0500, L3300.0100, L3300.1200, L3400.0700, L3410.2400, L101.9900, L500.4050, L501.2450, L501.4700, L501.6710, L800.1280, L3100.5440 ####[facility] [address] [place], [place], [phone] Albumin/Globulin [Mass ratio] 0.6 {ratio} Low 0.9-2.4 [facility] Comment on above: Performed By: #### L 803.2200, L3100.6900, L3200.0500, L3300.0100, L3300.1200, L3400.0700, L3410.2400, L101.9900, L500.4050, L501.2450, L501.4700, L501.6710, L800.1280, L3100.5440 ####[facility] [address] [place], [address] ALK P 347 U/L High 45-117 [facility] Comment on above: Performed By: #### L 803.2200, L3100.6900, L3200.0500, L3300.0100, L3300.1200, L3400.0700, L3410.2400, L101.9900, L500.4050, L501.2450, L501.4700, L501.6710, L800.1280, L3100.5440 ####[facility] [address] [place], [place], [address] ALT [Catalytic activity/Vol] 107 U/L High 13-56 [facility] Comment on above: Performed By: #### L 803.2200, L3100.6900, L3200.0500, L3300.0100, L3300.1200, L3400.0700, L3410.2400, L101.9900, L500.4050, L501.2450, L501.4700, L501.6710, L800.1280, L3100.5440 ####[facility] [address] [place], [place], [address] AST [Catalytic activity/Vol] 151 U/L High 15-37 [facility] Comment on above: Performed By: #### L 803.2200, L3100.6900, L3200.0500, L3300.0100, L3300.1200, L3400.0700, L3410.2400, L101.9900, L500.4050, L501.2450, L501.4700, L501.6710, L800.1280, L3100.5440 ####[facility] [address] [place], [place], [phone] Bilirubin [Mass/Vol] 2.60 mg/dL High 0.20-1.00 [facility] Comment on above: Result Comment: For patients on eltrombopag therapy, use of Dimension [place] TBIL is not recommended. Performed By: #### L 803.2200, L3100.6900, L3200.0500, L3300.0100, L3300.1200, L3400.0700, L3410.2400, L101.9900, L500.4050, L501.2450, L501.4700, L501.6710, L800.1280, L3100.5440 ####[facility] [address] [place], [place], [address] BUN/CRE 20.2 RATIO High 10-20 [facility] Comment on above: Performed By: #### L 803.2200, L3100.6900, L3200.0500, L3300.0100, L3300.1200, L3400.0700, L3410.2400, L101.9900, L500.4050, L501.2450, L501.4700, L501.6710, L800.1280, L3100.5440 ####[facility] [address] [place], [place], [address] CA,Total 9.1 mg/dL Normal 8.5-10.1 [facility] Comment on above: Performed By: #### L 803.2200, L3100.6900, L3200.0500, L3300.0100, L3300.1200, L3400.0700, L3410.2400, L101.9900, L500.4050, L501.2450, L501.4700, L501.6710, L800.1280, L3100.5440 ####[facility] [address] [place], [place], [address] Chloride [Moles/Vol] 105 mmol/L Normal 98-107 [facility] Comment on above: Performed By: #### L 803.2200, L3100.6900, L3200.0500, L3300.0100, L3300.1200, L3400.0700, L3410.2400, L101.9900, L500.4050, L501.2450, L501.4700, L501.6710, L800.1280, L3100.5440 ####[facility] [address] [place], [address] CO2 [Moles/Vol] 23.0 mmol/L Normal 21.0-32.0 [facility] Comment on above: Performed By: #### L 803.2200, L3100.6900, L3200.0500, L3300.0100, L3300.1200, L3400.0700, L3410.2400, L101.9900, L500.4050, L501.2450, L501.4700, L501.6710, L800.1280, L3100.5440 ####[facility] [address] [place], [address] Creatinine [Mass/Vol] 0.50 mg/dL Low 0.55-1.02 [facility] Comment on above: Result Comment: The validity of the calculated GFR GFRAA in patients over70 years has not been determined. Clinical correlation isessential. Performed By: #### L 803.2200, L3100.6900, L3200.0500, L3300.0100, L3300.1200, L3400.0700, L3410.2400, L101.9900, L500.4050, L501.2450, L501.4700, L501.6710, L800.1280, L3100.5440 ####[facility] [address] [place], [place], [address] EST GFR - AA 191 mL/min Normal >60 [facility] Comment on above: Result Comment: Afri can Bahraini GFR Calc Performed By: #### L 803.2200, L3100.6900, L3200.0500, L3300.0100, L3300.1200, L3400.0700, L3410.2400, L101.9900, L500.4050, L501.2450, L501.4700, L501.6710, L800.1280, L3100.5440 ####[facility] [address] [place], [place], [address] GAP 9 Normal 5-15 [facility] Comment on above: Performed By: #### L 803.2200, L3100.6900, L3200.0500, L3300.0100, L3300.1200, L3400.0700, L3410.2400, L101.9900, L500.4050, L501.2450, L501.4700, L501.6710, L800.1280, L3100.5440 ####[facility] [address] [place], [place], [id number] GFR/1.73 sq M.predicted among non-blacks MDRD (S/P/Bld) [Vol rate/Area] 157 mL/min/{1.73_m2} Normal >60 [facility] Comment on above: Result Comment: Non- GFR Calc Performed By: #### L 803.2200, L3100.6900, L3200.0500, L3300.0100, L3300.1200, L3400.0700, L3410.2400, L101.9900, L500.4050, L501.2450, L501.4700, L501.6710, L800.1280, L3100.5440 ####[facility] [address] [place], [place], [phone]) Globulin (S) [Mass/Vol] 4.8 g/dL High 2.2-4.2 [facility] Comment on above: Performed By: #### L 803.2200, L3100.6900, L3200.0500, L3300.0100, L3300.1200, L3400.0700, L3410.2400, L101.9900, L500.4050, L501.2450, L501.4700, L501.6710, L800.1280, L3100.5440 ####[facility] [address] [place], [address] Glucose [Mass/Vol] 88 mg/dL Normal 74-106 [facility] Comment on above: Performed By: #### L 803.2200, L3100.6900, L3200.0500, L3300.0100, L3300.1200, L3400.0700, L3410.2400, L101.9900, L500.4050, L501.2450, L501.4700, L501.6710, L800.1280, L3100.5440 ####[facility] [address] [place], [address] Potassium [Moles/Vol] 3.8 mmol/L Normal 3.5-5.1 [facility] Comment on above: Performed By: #### L 803.2200, L3100.6900, L3200.0500, L3300.0100, L3300.1200, L3400.0700, L3410.2400, L101.9900, L500.4050, L501.2450, L501.4700, L501.6710, L800.1280, L3100.5440 ####[facility] [address] [place], [address] Sodium [Moles/Vol] 137 mmol/L Normal 136-145 [facility] Comment on above: Performed By: #### L 803.2200, L3100.6900, L3200.0500, L3300.0100, L3300.1200, L3400.0700, L3410.2400, L101.9900, L500.4050, L501.2450, L501.4700, L501.6710, L800.1280, L3100.5440 ####[facility] [address] [place], [place], [id number] T PROT 7.9 g/dL Normal 6.4-8.2 [facility] Comment on above: Performed By: #### L 803.2200, L3100.6900, L3200.0500, L3300.0100, L3300.1200, L3400.0700, L3410.2400, L101.9900, L500.4050, L501.2450, L501.4700, L501.6710, L800.1280, L3100.5440 ####[facility] [address] [place], [address] Urea nitrogen [Mass/Vol] 10 mg/dL Normal 7-18 [facility] Comment on above: Performed By: #### L 803.2200, L3100.6900, L3200.0500, L3300.0100, L3300.1200, L3400.0700, L3410.2400, L101.9900, L500.4050, L501.2450, L501.4700, L501.6710, L800.1280, L3100.5440 ####[facility] [address] [place], [place], [id number] Erythrocyte Sed Rateon 11-10 SED RATE 28 mm/hr Normal 0-30 [facility] Comment on above: Performed By: #### L 803.2200, L3100.6900, L3200.0500, L3300.0100, L3300.1200, L3400.0700, L3410.2400, L101.9900, L500.4050, L501.2450, L501.4700, L501.6710, L800.1280, L3100.5440 ####[facility] [address] [facility] [address] [place], [place], [id number] Gastroenterology Visit Repor ton 11-11-2023 Gastroenterology Visit Report Normal [facility] Lipaseon 11-11-2023 Lipase [Catalytic activity/Vol] 60 U/L Normal 13-75 [facility] Comment on above: Result Comment: Kb seay note:LIPASE revised reference range effective 22.New Lipase methodology. Expected to produce lower valuesthan the previous assay method.NEW Reference Range: 13 - 75 U/L Performed By: #### L 803.2200, L3100.6900, L3200.0500, L3300.0100, L3300.1200, L3400.0700, L3410.2400, L101.9900, L500.4050, L501.2450, L501.4700, L501.6710, L800.1280, L3100.5440 ####[facility] [address] [facility] [place], [address] DANGELO BY IFA SCREEN [CCL]on Nuclear Ab IF (S) [Titer] Negative Normal Negative [facility] Comment on above: Result Comment: Anti -nuclear antibody test is used as an aid in diagnosis of systemic autoimmune diseases. Where positive and clinically warranted, follow-up using disease-specific testing is recommended. Low positive titers are not uncommon with advanced age, certain chronic infections, and malignancies among others. Test methodology: Indirect fluorescence immunoassay (IFA) using HEp-2 cells. [facility] [address] [place] [address] Kishore Mcdaniels III, M.D. [id number] Performed By: #### 2 42107 #### [facility],[address] [place] [address] HEPATITIS ACUTE PANEL [CCL]o n 11-10-2023 Hep B Core Ab, IgM Negative Normal Negative [facility] Comment on above: Result Comment: No e vidence of recent infection with Hepatitis B virus. Should recent infection be suspected, repeat testing may be considered 3-4 weeks after this draw. Performed By: #### 2 87891 #### [facility],[address] [place] [address] Hepatitis A Ab IgM Negative Normal Negative [facility] Comment on above: Result Comment: No e vidence of recent infection with Hepatitis A virus. Performed By: #### 2 66607 #### [place] [address] Hepatitis B Surf. Ag Negative Normal Negative [facility] Comment on above: Result Comment: [facility] [address] [place] [address] Kishore Mcdaniels III, M.D. [id number] Performed By: #### 2 56539 #### [place] [address] Hepatitis C Ab IA Negative Normal Negative [facility] Comment on above: Result Comment: The result suggests no evidence of active infection with Hepatitis C virus. Should recent infection be suspected, repeat testing may be considered 4-6 weeks after this draw. Performed By: #### 2 89696 #### [facility],[address] [place], [place] [id number] Credit Relationship Manager Office Visit Reporton 11-10-2023 Credit Relationship Manager Office Visit Report Normal [facility] SICKLE CELL PREPARATION [CCL ]on 11-10-2023 Sickle Solub Normal Negative [facility] Comment on above: Result Comment: Nega tive Negative [facility] [address] [place] [address] [place] [id number] Tex Contreras III, III, M.D. [id number] Performed By: #### 2 96445 #### [facility],[address] [place], [place] [id number] CBC + DIFFon 11-09-2023 ANISO 2+ Normal [facility] Comment on above: Performed By: #### 2 31946 #### [facility],[address] [place] [address] 29583 Baso # 0.02 x10EE3/UL Normal 0.00 - 0.10 [facility] Comment on above: Performed By: #### 2 59453 #### [facility],[address] [place] [address] 38092 Basophils/100 WBC (Bld) 0.4 % Normal 0.0 - 2.0 [facility] Comment on above: Performed By: #### 2 44604 #### [facility],[address] [place] [address] 67523 CBC + DIFF Normal [facility] Comment on above: Result Comment: CBC- COMPLETE BLOOD COUNT Performed By: #### 2 58546 #### [facility],[address] [place] [address] 15074 CELL COUNT 100 Normal [facility] Comment on above: Performed By: #### 2 96420 #### [facility],[address] [place] [address] 18792 EO 1.0 % Normal 0.0 - 7.0 [facility] Comment on above: Performed By: #### 2 87556 #### [facility],[address] [place] [address] 85991 EO # 0.03 x10EE3/UL Normal 0.00 - 0.50 [facility] Comment on above: Performed By: #### 2 72886 #### [facility],[address] [place] [address] 23064 Eosinophils/100 WBC (Bld) 0.5 % Normal 0.0 - 7.0 [facility] Comment on above: Performed By: #### 2 44496 #### [facility],[address] [place] [address] 83051 Erythrocyte distribution width (RBC) [Ratio] 20.7 % High 12.0 - 15.6 [facility] Comment on above: Performed By: #### 2 37874 #### [facility],[address] [place] [address] Hematocrit (Bld) [Volume fraction] 36.9 % Normal 34.0 - 46.0 [facility] Comment on above: Performed By: #### 2 97897 #### [facility],[address] [place] [address] Hemoglobin (Bld) [Mass/Vol] 12.0 g/dL Normal 12.0 - 16.0 [facility] Comment on above: Performed By: #### 2 62675 #### [facility],[address] [place] [address] Lymph # 3.44 x10EE3/UL High 0.80 - 2.80 [facility] Comment on above: Performed By: #### 2 64497 #### [facility],[address] [place], [place] [address] Lymphocytes/100 WBC (Bld) 59.9 % High 20.0 - 45.0 [facility] Comment on above: Performed By: #### 2 29559 #### [facility],[address] [place], [place] [address] Lymphocytes/100 WBC (Bld) 58 % High 20 - 45 [facility] Comment on above: Performed By: #### 2 65669 #### [facility],[address] [place], [place] [address] MANUAL DIFF SEE BELOW Normal [facility] Comment on above: Performed By: #### 2 73086 #### [facility],[address] [place] [address] 36249 MCH (RBC) [Entitic mass] 23 pg Low 27 - 33 [facility] Comment on above: Performed By: #### 2 22074 #### [facility],[address] [place] [address] MCHC 32 X10 3 Normal 32 - 36 [facility] Comment on above: Performed By: #### 2 51975 #### [facility],[address] [place] [address] 37987 MCV (RBC) [Entitic vol] 72 fL Low 80 - 99 J l [facility] Comment on above: Performed By: #### 2 34901 #### [facility],[address] [place] [address] 43521 MICROCYTES 1+ Normal [facility] Comment on above: Performed By: #### 2 08580 #### [facility],[address] [place] [address] 63988 [place] # 0.52 x10EE3/UL Normal 0.20 - 1.00 [facility] Comment on above: Performed By: #### 2 27024 #### [facility],[address] [place] [address] 98231 MONOS 10 % Normal 0 - 10 [facility] Comment on above: Performed By: #### 2 54761 #### [facility],[address] [place] [address] 95140 MONOS % 9.0 % Normal 0.0 - 10.0 [facility] Comment on above: Performed By: #### 2 90835 #### [facility],[address] [place] [address] 55207 Morphology Girish (Bld) [Interp] SEE BELOW Normal [facility] Comment on above: Performed By: #### 2 96129 #### [facility],[address] [place] [address] 82717 Neut # 1.74 x10EE3/UL Normal 1.50 - 7.10 [facility] Comment on above: Performed By: #### 2 68168 #### [facility],[address] [place] [address] 88168 Neutrophils/100 WBC (Bld) 30.2 % Low 46.0 - 76.0 [facility] Comment on above: Performed By: #### 2 99682 #### [facility],[address] [place] [address] 62187 PLATELET 279 x10EE3/UL Normal 150 - 450 [facility] Comment on above: Performed By: #### 2 33449 #### [facility],[address] [place] [address] 63964 Platelet mean volume (Bld) [Entitic vol] 8.8 fL Normal 6.6 - 10.5 [facility] Comment on above: Result Comment: AUTO MATED DIFFERENTIAL Performed By: #### 2 23238 #### [facility],[address] [place] [address] 45185 PLT EST NORMAL Normal [facility] Comment on above: Performed By: #### 2 34575 #### [facility],[address] [place] [address] 71007 RBC 5.15 x 10EE6/UL Normal 4.10 - 5.30 [facility] Comment on above: Performed By: #### 2 76474 #### [facility],[address] [place] [address] 56806 SEGS 31 % Low 46 - 76 [facility] Comment on above: Performed By: #### 2 36271 #### [facility],[address] [place] [address] 32958 WBC 5.8 x 10EE3/UL Normal 4.5 - 10.8 [facility] Comment on above: Performed By: #### 2 25084 #### [facility],[address] [place] [address] 06954 Other FEW LARGE PLATELETS Normal [facility] Comment on above: Result Comment: 1+ C ODOCYTES Performed By: #### 2 75432 #### [facility],[address] [place] [address] 67996 CMP with eGFRon 11-09-2023 AGE 28 years Normal [facility] Comment on above: Performed By: #### 2 01428 #### [facility],[address] [place] [address] 83964 Albumin [Mass/Vol] 3.1 g/dL Low 3.4 - 5.0 [facility] Comment on above: Performed By: #### 2 07272 #### [facility],[address] [place] [address] 16582 Albumin/Globulin [Mass ratio] 0.6 {ratio} Low 0.9 - 1.6 [facility] Comment on above: Performed By: #### 2 38903 #### [facility],[address] [place] [address] 62614 ALK PHOS 483 U/L High 46 - 116 [facility] Comment on above: Performed By: #### 2 68692 #### [facility],[address] [place] [address] 34045 ALT [Catalytic activity/Vol] 128 U/L High 16 - 63 [facility] Comment on above: Performed By: #### 2 53120 #### [facility],[address] [place] [address] 83714 Anion gap [Moles/Vol] 14 mmol/L Normal 10 - 20 [facility] Comment on above: Performed By: #### 2 34393 #### [facility],[address] [place] [address] 19667 AST [Catalytic activity/Vol] 199 U/L High 13 - 39 [facility] Comment on above: Performed By: #### 2 71149 #### [facility],[address] [place] [address] 12689 B/C RATIO 10 ratio Normal 0 - 30 [facility] Comment on above: Performed By: #### 2 02351 #### [facility],[address] [place] [address] 17395 Bilirubin [Mass/Vol] 3.4 mg/dL High 0.2 - 1.0 [facility] Comment on above: Performed By: #### 2 58095 #### [facility],[address] [place], [place] [address] Calcium [Mass/Vol] 8.8 mg/dL Normal 8.5 - 10.1 [facility] Comment on above: Performed By: #### 2 92350 #### [facility],[address] [place], [place] [address] Chloride [Moles/Vol] 101 mmol/L Normal 98 - 107 [facility] Comment on above: Performed By: #### 2 56773 #### [facility],[address] [place], [place] [address] CMP with eGFR Normal [facility] Comment on above: Result Comment: COMP REHENSIVE METABOLIC PANEL Performed By: #### 2 72708 #### [facility],[address] [place] [address] CO2 [Moles/Vol] 28.5 mmol/L Normal 21.0 - 32.0 [facility] Comment on above: Performed By: #### 2 57913 #### [facility],[address] [place], [place] [address] Creatinine [Mass/Vol] 0.68 mg/dL Normal 0.55 - 1.02 [facility] Comment on above: Performed By: #### 2 33782 #### [facility],[address] [place] [address] 63543 GFR/1.73 sq M.predicted among non-blacks MDRD (S/P/Bld) [Vol rate/Area] mL/min/{1.73_m2} Normal 60 - 999 [facility] Comment on above: Performed By: #### 2 98228 #### [facility],[address] [place] [address] Result Comment: ACCO RDING TO THE NATIONAL KIDNEY DISEASE EDUCATION PROGRAM(NKDE), A NORMAL eGFR IS A VALUE GREATER THAN OR EQUAL TO 60 ML/MIN/1.73 SQ METERS. CHRONIC KIDNEY DISEASE: <60mL/MIN/1.73 SQ METERS KIDNEY FAILURE: <15mL/MIN/1.73 SQ METERS THIS TEST SHOULD ONLY BE USED FOR PATIENTS 18 YEARS OF AGE AND OLDER. Globulin (S) [Mass/Vol] 5.2 g/dL High 1.5 - 3.8 [facility] Comment on above: Performed By: #### 2 40889 #### [facility],[address] [place] [address] 64125 Glucose [Mass/Vol] 80 mg/dL Normal 74 - 106 [facility] Comment on above: Performed By: #### 2 57273 #### [facility],[address] [place] [address] 70969 Potassium [Moles/Vol] 4.0 mmol/L Normal 3.5 - 5.1 [facility] Comment on above: Performed By: #### 2 66447 #### [facility],[address] [place] [address] 65583 Protein [Mass/Vol] 8.3 g/dL High 6.4 - 8.2 [facility] Comment on above: Performed By: #### 2 98188 #### [facility],[address] [place] [address] 11342 Sodium [Moles/Vol] 139 mmol/L Normal 136 - 145 [facility] Comment on above: Performed By: #### 2 27997 #### [facility],[address] [place] [address] 75502 Urea nitrogen [Mass/Vol] 7 mg/dL Normal 7 - 18 [facility] Comment on above: Performed By: #### 2 32876 #### [facility],[address] [place] [address] 37299 GAMMA GTon 11-09-2023 Gamma glutamyl transferase [Catalytic activity/Vol] 431 U/L High 5 - 55 [facility] Comment on above: Performed By: #### 2 85360 #### [facility],[address] [place] [address] 07563 IRON AND TIBCon 11-09-2023 %SATURATION 16 % Normal [facility] Comment on above: Performed By: #### 2 04761 #### [facility],[address] [place] [address] 86231 Iron [Mass/Vol] 55 ug/dL Normal 50 - 170 [facility] Comment on above: Performed By: #### 2 40734 #### [facility],[address] [place] [address] 24471 TIBC 336 ug/dl Normal 250 - 450 [facility] Comment on above: Performed By: #### 2 55913 #### [facility],[address] [place] [address] 30864 UIBC 281 ug/dL Normal 155 - 355 [facility] Comment on above: Performed By: #### 2 32945 #### [facility],[address] [place] [address] 97769 LIPID PROFILEon 11-09-2023 Cholesterol [Mass/Vol] 336 mg/dL High 0 - 240 [facility] Comment on above: Performed By: #### 2 01589 #### [facility],[address] [place] [address] 80823 Cholesterol in HDL [Mass/Vol] 27 mg/dL Low 40 - 60 [facility] Comment on above: Performed By: #### 2 23644 #### [facility],[address] [place] [address] 79271 Cholesterol in LDL [Mass/Vol] 273 mg/dL High 0 - 129 [facility] Comment on above: Performed By: #### 2 04720 #### [facility],[address] [place] [address] 85146 Cholesterol.total/Gerardo sterol in HDL [Mass ratio] 12.4 {ratio} High 0.0 - 5.0 [facility] Comment on above: Performed By: #### 2 66832 #### [facility],[address] [place] [address] 29178 Lipid 1996 panel Normal [facility] Comment on above: Result Comment: LIPI D PROFILE Performed By: #### 2 35269 #### [facility],[address] [place], [place] [address] Triglyceride [Mass/Vol] 179 mg/dL High 0 - 150 J oel [facility] Comment on above: Performed By: #### 2 82213 #### [facility],[address] [place] [address] 06593 36on 11-08-2023 36 DOS 05/10/23 LRYGB JZ 11/15/2023-6M POP 11/01/2023 Zinc: 73 (WNL) Vitamin B1: 91 (WNL) 10/29/2023 Vitamin B12: 713 (WNL) MyChart sent to pt to inform pt of normal labs. [facility] 36 ----- Message from Linette Campbell MD sent at 10/29/2023 11:09 AM EDT ----- Camacho Chu I ordered annual labs including B1, B12 and zinc, please follow-up on this as an outpatient. Thanks [place] [address]on 11-05-2023 36 Called and spoke stanley Bhatia office in regards to pt follow up appoitnment. Office is already seeing her next week and they requested any labs she had done while in the ED. Faxed labs and scanned into media. TY [place] [address]on 11-03-2023 36 Noted, thanks [facility] 36 Patient discharged t o home on 11/02/23. Follow up scheduled with TES[facility] on 11/14/33. [facility] CARECOORDon 11-02-2023 [facility] completed [facility] Readmission Questionnaire with patient. . [facility] CBC W Auto Differential pane l (Bld)Ordered By: Mariama Whitten on 11-02-2023 Erythrocyte distribution width (RBC) [Ratio] 19.6 % High 11.5 - 15.0 % [facility] Hematocrit (Bld) [Volume fraction] 33.2 % Low 35.0 - 47.0 % [facility] Hemoglobin (Bld) [Mass/Vol] 10.7 g/dL Low 11.7 - 16.0 g/dL [facility] Interpretation and review of laboratory results Abnormal [facility] IPF 4 [facility] MCH (RBC) [Entitic mass] 22.2 pg Low 26.0 - 34.0 pg [facility] MCHC (RBC) [Mass/Vol] 32.2 % 30.5 - 36.0 % [facility] MCV (RBC) [Entitic vol] 69.0 fL Low 77.0 - 99.0 fL [facility] Platelet mean volume (Bld) [Entitic vol] 10.7 fL 9.0 - 12.7 fL [facility] Platelets (Bld) [#/Vol] 197 10*3/uL 140 - 440 10*3/uL [facility] RBC (Bld) [#/Vol] 4.81 10*6/uL 3.80 - 5.2 0 10*6/uL [facility] WBC (Bld) [#/Vol] 8.0 10*3/uL 3.6 - 10.7 10*3/uL [facility] CBC WITH AUTO DIFFERENTIALon 11-02-2023 Erythrocyte distribution width (RBC) [Ratio] 19.6 % High 11.5-15.0 [facility] Comment on above: Performed By: #### Barrett [id number], [id number] ####Senior Sustainability Advisor: HENNY WADE ([phone])[address] Hematocrit (Bld) [Volume fraction] 33.2 % Low 35.0-47.0 [facility] Comment on above: Performed By: #### L [id number], [id number] ####Senior Sustainability Advisor: HENNY WADE ([phone])[address] Hemoglobin (Bld) [Mass/Vol] 10.7 g/dL Low 11.7-16.0 [facility] Comment on above: Performed By: #### L [id number], [id number] ####Senior Sustainability Advisor: HENNY WADE ([phone])[facility])[address] [place] [address] [place] IPF 4 Normal [facility] Comment on above: Performed By: #### L [id number], [id number] ####Senior Sustainability Advisor: HENNY WADE ([phone])[facility])[address] [place] [address] MCH (RBC) [Entitic mass] 22.2 pg Low 26.0-34.0 [facility] Comment on above: Performed By: #### L [id number], [id number] ####Senior Sustainability Advisor: HENNY WADE ([phone])[facility])[address] [place] [address] MCHC 32.2 % Normal 30.5-36.0 [facility] Comment on above: Performed By: #### L [id number], [id number] ####Senior Sustainability Advisor: HENNY WADE ([phone])[facility])[address] [place] [address] MCV (RBC) [Entitic vol] 69.0 fL Low 77.0-99.0 S [facility] Comment on above: Performed By: #### Barrett [id number], [id number] ####Senior Sustainability Advisor: HENNY WADE ([phone])[facility] ([facility])[address] [place] [address] Platelet mean volume (Bld) [Entitic vol] 10.7 fL Normal 9.0-12.7 [facility] Comment on above: Performed By: #### L [id number], [id number] ####Senior Sustainability Advisor: HENNY WADE ([phone])[facility] ([facility])[address] [place] [address] Platelets (Bld) [#/Vol] 197 10*3/uL Normal 140-440 [facility] Comment on above: Performed By: #### L [id number], [id number] ####Senior Sustainability Advisor: HENNY WADE ([phone])[facility])[address] [place] [address] RBC (Bld) [#/Vol] 4.81 10*6/uL Normal 3.80-5.20 [facility] Comment on above: Performed By: #### L [id number], [id number] ####Senior Sustainability Advisor: HENNY WADE ([phone])[facility])[address] [place] [address] WBC (Bld) [#/Vol] 8.0 10*3/uL Normal 3.6-10.7 [facility] Comment on above: Performed By: #### L [id number], [id number] ####Senior Sustainability Advisor: HENNY WADE ([phone])[facility])[address] [place] [address] COMPREHENSIVE METABOLIC PANE Chavez 11-02-2023 Albumin [Mass/Vol] 2.8 g/dL Low 3.5-5.0 [facility] Comment on above: Performed By: #### L [id number] ####Senior Sustainability Advisor: HENNY WADE ([phone])[facility])[address] [place] [address] ALP [Catalytic activity/Vol] 609 U/L High 38-126 [facility] Comment on above: Performed By: #### L AB17 ####Senior Sustainability Advisor: HENNY WADE ([phone])[facility])[address] [place] [address] ALT [Catalytic activity/Vol] 195 U/L High 0-34 [facility] Comment on above: Performed By: #### L AB17 ####Senior Sustainability Advisor: HENNY WADE ([phone])[facility])[address] [place] [address] Anion gap [Moles/Vol] 6 mmol/L Normal 3-13 [facility] Comment on above: Performed By: #### L AB17 ####Senior Sustainability Advisor: HENNY WADE ([phone])[facility])[address] [place] [address] AST [Catalytic activity/Vol] 347 U/L High 15-46 [facility] Comment on above: Performed By: #### L AB17 ####Senior Sustainability Advisor: HENNY WADE ([phone])[facility] ([facility])[address] [place] [address] Bilirubin [Mass/Vol] 5.0 mg/dL High 0.2-1.3 [facility] Comment on above: Performed By: #### L AB17 ####Senior Sustainability Advisor: HENNY WADE ([phone])[facility] ([facility])[address] [place] [address] Calcium [Mass/Vol] 8.1 mg/dL Low 8.4-10.4 [facility] Comment on above: Performed By: #### L AB17 ####Senior Sustainability Advisor: HENNY WADE ([phone])[facility] ([facility])[address] [place] [address] Chloride [Moles/Vol] 100 mmol/L Normal 98-107 [facility] Comment on above: Performed By: #### L [id number] ####Senior Sustainability Advisor: HENNY WADE ([phone])[facility] ([facility])[address] [place] [address] CO2 [Moles/Vol] 29 mmol/L Normal 22-30 [facility] Comment on above: Performed By: #### L [id number] ####Senior Sustainability Advisor: HENNY WADE ([phone])[facility] ([facility])[address] [place] [address] Creatinine [Mass/Vol] 0.54 mg/dL Normal 0.52-1.04 [facility] Comment on above: Performed By: #### L [id number] ####Senior Sustainability Advisor: HENNY WADE ([phone])[facility] ([facility])[address] [place] [address] GLOMERULAR FILTRATION RATE ML/MIN/1.73 SQ M.PREDICTED >90.0 Normal >60.0 [facility] Comment on above: Result Comment: Calc ulation based on the Chronic Kidney Disease Epidemiology Collaboration (CKD-EPI) equation refit without adjustment for race Performed By: #### L [id number] ####Senior Sustainability Advisor: HENNY WADE ([phone])[facility] ([facility])[address] [place] [address] Glucose [Mass/Vol] 84 mg/dL Normal 70-100 [facility] Comment on above: Performed By: #### L [id number] ####Senior Sustainability Advisor: HENNY WADE ([phone])[facility] ([facility])[address] [place] [address] Potassium [Moles/Vol] 3.9 mmol/L Normal 3.5-5.1 [facility] Comment on above: Performed By: #### L [id number] ####Senior Sustainability Advisor: HENNY WADE ([phone])[facility] ([facility])[address] [place] [address] Protein [Mass/Vol] 6.6 g/dL Normal 6.3-8.2 [facility] Comment on above: Performed By: #### L [id number] ####Senior Sustainability Advisor: HENNY WADE ([phone])[facility] ([facility])[address] [place] [address] Sodium [Moles/Vol] 134 mmol/L Low 135-145 [facility] Comment on above: Performed By: #### L [id number] ####Senior Sustainability Advisor: HENNY WADE ([phone])[facility] ([facility])[address] [place] [address] Urea nitrogen [Mass/Vol] 3 mg/dL Low 7-17 [facility] Comment on above: Performed By: #### L [id number] ####Senior Sustainability Advisor: EHNNY WADE ([phone])[facility])[address] [place] [address] Comprehensive metabolic 1998 panelon 11-02-2023 Albumin [Mass/Vol] 2.8 g/dL Low 3.5 - 5.0 g/dL [facility] ALP [Catalytic activity/Vol] 609 U/L High 38 - 126 U/L [facility] ALT [Catalytic activity/Vol] 195 U/L High 0 - 34 U/L [facility] Anion gap [Moles/Vol] 6 mmol/L 3 - 13 mmol/L [facility] AST [Catalytic activity/Vol] 347 U/L High 15 - 46 U/L [facility] Bilirubin [Mass/Vol] 5.0 mg/dL High 0.2 - 1 .3 mg/dL [facility] Calcium [Mass/Vol] 8.1 mg/dL Low 8.4 - 10. 4 mg/dL [facility] Chloride [Moles/Vol] 100 mmol/L 98 - 10 7 mmol/L [facility] CO2 [Moles/Vol] 29 mmol/L 22 - 30 mmol/L [facility] Creatinine [Mass/Vol] 0.54 mg/dL 0.52 - 1.04 mg/dL [facility] GFR/1.73 sq M.predicted (S/P/Bld) [Vol rate/Area] - PINF [facility] Comment on above: Calculation based on the Chronic Kidney Disease Epidemiology Collaboration (CKD-EPI) equation refit without adjustment for race Glucose [Mass/Vol] 84 mg/dL 70 - 100 mg/dL [facility] Interpretation and review of laboratory results Abnormal [facility] Potassium [Moles/Vol] 3.9 mmol/L 3.5 - 5.1 mmol/L [facility] Protein [Mass/Vol] 6.6 g/dL 6.3 - 8.2 g/dL [facility] Sodium [Moles/Vol] 134 mmol/L Low 135 - 145 mmol/L [facility] Urea nitrogen [Mass/Vol] 3 mg/dL Low 7 - 17 mg/dL [facility] Consulton 11-02-2023 Consult Normal [facility] Laboratory - Microbiology an d Antimicrobial susceptibilityon 11-02-2023 CMV IgG IA Qn >10.00 High NINF - 0.70 U/mL [facility] Comment on above: INTERPRETIVE INFORMA TION: Cytomegalovirus Antibody, IgG 0.59 U/mL or less......... Not Detected 0.6 - 0.69 U/mL........... Indeterminate-Repeat testing in 10-14 days may be helpful. 0.70 U/mL or greater...... Detected In immunocompromised patients, CMV serology (IgG or IgM antibody titers) may not be reliable and may be misleading in the diagnosis of acute or reactivation CMV disease. The preferred method for diagnosis is culture of virus and/or demonstration of viral antigen in peripheral white cells (buffy coat), bronchoalveolar lavage (BAL) cells, or tissue biopsies. This test should not be used for blood donor screening, associated re-entry protocols, or for screening Human Cell, Tissues and Cellular and Tissue-Based Products (HCT/P). The best evidence for current infection is a significant change on two appropriately timed specimens, where both tests are done in the same laboratory at the same time. CMV IgM Qn 73.9 AU/mL High NINF - 29.9 AU/mL [facility] Comment on above: INTERPRETIVE INFORMA TION: Cytomegalovirus Antibody, IgM 29.9 AU/mL or Less ....... Not Detected 30.0-34.9 AU/mL........... Indeterminate-Repeat testing in 10-14 days may be helpful. 35.0 AU/mL or Greater .... Detected-IgM antibody to CMV detected which may indicate a current or recent infection. However, low levels of IgM antibodies may occasionally persist for more than 12 months post-infection. A negative result does not rule out primary infection, please correlate clinically. CMV serology is not useful for the evaluation of active or reactivated infection in immunocompromised patients. Molecular diagnostic tests (i.e. PCR)are preferred in these cases. This test should not be used for blood donor screening, associated re-entry protocols, or for screening Human Cell, Tissues and Cellular and Tissue-Based Products (HCT/P). Performed By: [facility] [address] [place] [id number] [employer] Al[employer] Specialist: Liborio Martinez MD, PhD CLIA Number: [id number] Laboratory - Serology - non- microon 11-02-2023 Liver kidney microsomal 1 IgG IA Qn (S) 1.9 U 0.0 - 24.9 U [facility] Comment on above: REFERENCE INTERVAL: Liver-Kidney Microsome-1 Antibody, IgG by ANNABELLE 0.0 - 20.0 U .............. Negative 20.1 - 24.9 U ............. Equivocal 25.0 U or Greater ......... Positive A positive result indicates the presence of IgG antibodies to recombinant human P450 2D6 and suggests the possibility of autoimmune hepatitis, type 2. A negative LKM-1 does not rule out the presence of autoimmune hepatitis, type 2. Performed By: [facility] [address] [place] [address] [employer] Specialist: Liborio Martinez MD, PhD CLIA Number: [id number] MANUAL DIFFERENTIALon 2023 ANISOCYTOSIS PRESENCE IN BLOOD BY LIGHT MICROSCOPY Slight Abnormal (none) [facility] Comment on above: Performed By: #### L [id number], [id number] ####Senior Sustainability Advisor: EHNNY WADE ([phone])[facility] ([facility])[address] [place] [address] BAND NEUTROPHILS TOTAL PER COUNTED LEUKOCYTES BY MANUAL COUNT 5 Normal [facility] Comment on above: Performed By: #### L [id number], [id number] ####Senior Sustainability Advisor: HENNY WADE ([phone])[facility])[address] [place] [address] BANDS 0.4 10*3/uL High <=0.0 [facility] Comment on above: Performed By: #### L [id number], [id number] ####Senior Sustainability Advisor: HENNY WADE ([phone])[facility] ([facility])[address] [place] [address] CELLS COUNTED TOTAL (#) IN BLOOD 100 Normal [facility] Comment on above: Performed By: #### L [id number], [id number] ####Senior Sustainability Advisor: HENNY WADE ([phone])[facility])[address] [place] [address] DIFFERENTIAL METHOD Manual differential performed Normal [facility] Comment on above: Performed By: #### L [id number], [id number] ####Senior Sustainability Advisor: HENNY WADE ([phone])[facility] ([facility])[address] [place] [address] HYPOCHROMIA (PRESENCE) IN BLOOD BY LIGHT MICROSCOPY Slight Abnormal (none) [facility] Comment on above: Performed By: #### L [id number], [id number] ####Senior Sustainability Advisor: HENNY WADE ([phone])[facility] ([facility])[address] [place] [address] [place] LEUKOCYTES (10*3/UL) NUCLEATED ERYTHROCYTE ADJUST 8.0 10*3/uL Normal 3.6-10.7 [facility] Comment on above: Performed By: #### L [id number], [id number] ####Senior Sustainability Advisor: HENNY WADE ([phone])[facility] ([facility])[address] [place] [address] [place] LYMPHOCYTES (10*3/UL) IN BLOOD BY MANUAL COUNT 5.3 10*3/uL High 1.0-4.3 [facility] Comment on above: Performed By: #### L [id number], [id number] ####Senior Sustainability Advisor: HENNY WADE ([phone])[facility] ([facility])[address] [place] [address] [place] LYMPHOCYTES TOTAL PER COUNTED LEUKOCYTES BY MANUAL COUNT 66 Normal [facility] Comment on above: Performed By: #### L [id number], [id number] ####Senior Sustainability Advisor: HENNY WADE ([phone])[facility] ([facility])[address] [place] [address] [place] LYMPHOCYTES VARIANT/100 LEUKOCYTES IN BLOOD 6 % High <=0 [facility] Comment on above: Performed By: #### L [id number], [id number] ####Senior Sustainability Advisor: HENNY WADE ([phone])[facility] ([facility])[address] [place] [address] [place] LYMPHOCYTES/100 LEUKOCYTES IN BLOOD BY MANUAL COUNT 66 % High 15-45 [facility] Comment on above: Performed By: #### L [id number], [id number] ####Senior Sustainability Advisor: HENNY WADE ([phone])[facility] ([facility])[address] [place] [address] [place] METAMYELOCYTES (10*3/UL) IN BLOOD BY MANUAL COUNT 0.1 10*3/uL High <=0.0 [facility] Comment on above: Performed By: #### L [id number], [id number] ####Senior Sustainability Advisor: HENNY WDAE ([phone])[facility] ([facility])[address] [place] [address] [place] METAMYELOCYTES TOTAL PER COUNTED LEUKOCYTES BY MANUAL COUNT 1 Normal [facility] Comment on above: Performed By: #### L [id number], [id number] ####Senior Sustainability Advisor: HENNY WADE ([phone])[facility])[address] [place] [address] METAMYELOCYTES/100 LEUKOCYTES IN BLOOD BY MANUAL COUNT 1 % High <=0 [facility] Comment on above: Performed By: #### L [id number], [id number] ####Senior Sustainability Advisor: HENNY WADE ([phone])[facility])[address] [place] [address] MICROCYTES (PRESENCE) IN BLOOD BY LIGHT MICROSCOPY Moderate Abnormal (none) [facility] Comment on above: Performed By: #### L [id number], [id number] ####Senior Sustainability Advisor: HENNY WADE ([phone])[facility])[address] [place] [address] MONOCYTES (10*3/UL) IN BLOOD BY MANUAL COUNT 0.5 10*3/uL Normal 0.0-0.9 [facility] Comment on above: Performed By: #### L [id number], [id number] ####Senior Sustainability Advisor: HENNY WADE ([phone])[facility])[address] [place] [address] MONOCYTES TOTAL PER COUNTED LEUKOCYTES BY MANUAL COUNT 6 Normal [facility] Comment on above: Performed By: #### L [id number], [id number] ####Senior Sustainability Advisor: HENNY WADE ([phone])[facility])[address] [place] [address] [place] MONOCYTES/100 LEUKOCYTES IN BLOOD BY MANUAL COUNT 6 % Normal 5-13 [facility] Comment on above: Performed By: #### L [id number], [id number] ####Senior Sustainability Advisor: HENNY WADE ([phone])[facility])[address] [place] [address] NEUTROPHILS (SEGS+BANDS) (10*3/UL) BY MANUAL COUNT 1.7 10*3/uL Low 1.8-7.0 [facility] Comment on above: Performed By: #### L [id number], [id number] ####Senior Sustainability Advisor: HENNY WADE ([phone])[facility] ([facility])[address] [place] [address] [place] NEUTROPHILS BAND FORM/100 LEUKOCYTES IN BLOOD BY MANUAL COUNT 5 % High <=0 [facility] Comment on above: Performed By: #### L [id number], [id number] ####Senior Sustainability Advisor: HENNY WADE ([phone])[facility] ([facility])[address] [place] [address] [place] NEUTROPHILS TOTAL PER COUNTED LEUKOCYTES BY MANUAL COUNT 16 Normal [facility] Comment on above: Performed By: #### L [id number], [id number] ####Senior Sustainability Advisor: HENNY WADE ([phone])[facility] ([facility])[address] [place] [address] OVALOCYTES PRESENCE IN BLOOD BY LIGHT MICROSCOPY Slight Abnormal (none) [facility] Comment on above: Performed By: #### L [id number], [id number] ####Senior Sustainability Advisor: HENNY WADE ([phone])[facility] ([facility])[address] [place] [address] PLATELET MORPHOLOGY IN BLOOD Normal Normal [facility] Comment on above: Performed By: #### L [id number], [id number] ####Senior Sustainability Advisor: HENNY WADE ([phone])[facility] ([facility])[address] [place] [address] POIKILOCYTOSIS (PRESENCE) IN BLOOD BY LIGHT MICROSCOPY Slight Abnormal (none) [facility] Comment on above: Performed By: #### L [id number], [id number] ####Senior Sustainability Advisor: HENNY WADE ([phone])[facility] ([facility])[address] [place] [address] [place] SEGEMENTED NEUTROPHILS/100 LEUKOCYTES BY MANUAL COUNT 16 % Low 38-82 [facility] Comment on above: Performed By: #### L [id number], [id number] ####Senior Sustainability Advisor: HENNY WADE ([phone])[facility] ([facility])[address] [place] [address] [place] SEGMENTED NEUTROPHILS (10*3/UL)IN BLOOD BY MANUAL COUNT 1.7 10*3/uL Low 1.8-7.5 [facility] Comment on above: Performed By: #### L [id number], [id number] ####Senior Sustainability Advisor: HENNY WADE ([phone])[facility])[address] [place] [address] SMUDGE CELLS PRESENCE IN BLOOD BY LIGHT MICROSCOPY Present Abnormal (none) [facility] Comment on above: Result Comment: Albu min slide read. Performed By: #### L [id number], [id number] ####Senior Sustainability Advisor: HENNY WADE ([phone])[facility])[address] [place] [address] TARGET CELLS IN BLOOD BY LIGHT MICROSCOPY Slight Abnormal (none) [facility] Comment on above: Performed By: #### L [id number], [id number] ####Senior Sustainability Advisor: HENNY WADE ([phone])[facility])[address] [place] [address] VARIANT LYMPHOCYTES (10*3/UL) IN BLOOD BY MANUAL COUNT 0.5 10*3/uL High <=0.0 [facility] Comment on above: Performed By: #### L [id number], [id number] ####Senior Sustainability Advisor: HENNY WADE ([phone])[facility])[address] [place] [address] VARIANT LYMPHOCYTES TOTAL PER COUNTED LEUKOCYTES BY MANUAL COUNT 6 Normal [facility] Comment on above: Performed By: #### L [id number], [id number] ####Senior Sustainability Advisor: HENNY WADE ([phone])[facility])[address] [place] [address] Manual differential performe d Ql (Bld)on 11-02-2023 Anisocytosis Ql (Bld) Slight Abnormal (none) [facility] Atypical Lymphocytes Manual 6 [facility] Band form neutrophils (Bld) [#/Vol] 0.4 10*3/uL High NINF - 0.0 10*3/uL [facility] Band form neutrophils/100 WBC (Bld) 5 % High NINF - 0 % [facility] Bands Manual 5 [facility] Cells Counted Total (Bld) [#] 100 {cells} [facility] Differential Method Manual differential performed [facility] Hypochromia Ql (Bld) Slight Abnormal (none) [facility] Interpretation and review of laboratory results Abnormal [facility] Lymphocytes (Bld) [#/Vol] 5.3 10*3/uL High 1.0 - 4.3 10*3/uL [facility] Lymphocytes Manual 66 [facility] Lymphocytes/100 WBC (Bld) 66 % High 15 - 45 % [facility] Metamyelocytes (Bld) [#/Vol] 0.1 10*3/uL High NINF - 0.0 10*3/uL [facility] Metamyelocytes Manual 1 [facility] Metamyelocytes/100 WBC (Bld) 1 % High NINF - 0 % [facility] Microcytes Ql (Bld) Moderate Abnormal (none) [facility] Monocytes (Bld) [#/Vol] 0.5 10*3/uL 0.0 - 0.9 10*3/uL [facility] Monocytes Manual 6 [facility]th Monocytes/100 WBC (Bld) 6 % 5 - 13 % [facility] Neutrophils (Bld) [#/Vol] 1.7 10*3/uL Low 1.8 - 7.5 10*3/uL [facility] Neutrophils Manual 16 [facility] Ovalocytes LM Ql (Bld) Slight Abnormal (none) [facility] Platelet morphology finding Nom (Bld) Normal [facility] Poikilocytosis LM Ql (Bld) Slight Abnormal (none) [facility] Segmented neutrophils/100 WBC (Bld) 16 % Low 38 - 82 % [facility] Smudge cells/100 WBC (Bld) Present Abnormal (none) per 100 WBCs [facility] Comment on above: Albumin slide read. Target cells LM Ql (Bld) Slight Abnormal (none) [facility] Variant lymphocytes (Bld) [#/Vol] 0.5 10*3/uL High NINF - 0.0 10*3/uL [facility] Variant lymphocytes/100 WBC (Bld) 6 % High NINF - 0 % [facility] WBC corrected for nucl RBC (Bld) [#/Vol] 8.0 10*3/uL 3.6 - 10.7 10*3/uL [facility] No Panel Informationon 11-01 [facility] Interpretation and review of laboratory results Abnormal [facility] Thyroid stimulating immunogl obulins actual/normal (S) [Relative mass conc]on 11-02-2023 IgG subclass 1 (S) [Mass/Vol] 1387 mg/dL High 240 - 1118 mg/dL [facility] Comment on above: REFERENCE INTERVAL: Immunoglobulin G Subclass 1 The total IgG (mg/dL) can be derived from the sum of the subclass IgG1, IgG2, IgG3, and IgG4 values. However, a confirmatory and more precise total IgG is available by the turbidimetric method of quantitation for total IgG. Refer to test Immunoglobulin G, Serum ([id number]). Access complete set of age- and/or gender-specific reference intervals for this test in the [facility] ([employer]). IgG subclass 2 (S) [Mass/Vol] 281 mg/dL 124 - 549 mg/dL [facility] Comment on above: REFERENCE INTERVAL: Immunoglobulin G Subclass 2 Access complete set of age- and/or gender-specific reference intervals for this test in the [facility] ([employer]). IgG subclass 3 (S) [Mass/Vol] mg/dL High 21 - 134 mg/dL [facility] Comment on above: REFERENCE INTERVAL: Immunoglobulin G Subclass 3 Access complete set of age- and/or gender-specific reference intervals for this test in the [facility] ([employer]). IgG subclass 4 (S) [Mass/Vol] 73 mg/dL 1 - 123 mg/dL [facility] Comment on above: REFERENCE INTERVAL: Immunoglobulin G Subclass 4 Access complete set of age- and/or gender-specific reference intervals for this test in the [facility] ([employer]). Performed By: [facility] [address] [place] [address] [employer] Specialist: Liborio Martinez MD, PhD CLIA Number: [id number] Interpretation and review of laboratory results Abnormal [facility] CARECOORDon 11-01-2023 CARECOORD Normal [facility] CBC W Auto Differential pane l (Bld)on 11-01-2023 Erythrocyte distribution width (RBC) [Ratio] 18.6 % High 11.5 - 15.0 % [facility] Hematocrit (Bld) [Volume fraction] 30.2 % Low 35.0 - 47.0 % [facility] Hemoglobin (Bld) [Mass/Vol] 9.8 g/dL Low 11.7 - 16.0 g/dL [facility] Interpretation and review of laboratory results Abnormal [facility] IPF 5 [facility] MCH (RBC) [Entitic mass] 22.3 pg Low 26.0 - 34.0 pg [facility] MCHC (RBC) [Mass/Vol] 32.5 % 30.5 - 36.0 % [facility] MCV (RBC) [Entitic vol] 68.6 fL Low 77.0 - 99.0 fL [facility] Platelet mean volume (Bld) [Entitic vol] 10.8 fL 9.0 - 12.7 fL [facility] Platelets (Bld) [#/Vol] 191 10*3/uL 140 - 440 10*3/uL [facility] RBC (Bld) [#/Vol] 4.40 10*6/uL 3.80 - 5.2 0 10*6/uL [facility] WBC (Bld) [#/Vol] 8.7 10*3/uL 3.6 - 10.7 10*3/uL [facility] CBC WITH AUTO DIFFERENTIALon 11-01-2023 Erythrocyte distribution width (RBC) [Ratio] 18.6 % High 11.5-15.0 [facility] Comment on above: Performed By: #### Barrett [id number], [id number] ####Senior Sustainability Advisor: HENNY WADE ([phone])[address] Hematocrit (Bld) [Volume fraction] 30.2 % Low 35.0-47.0 [facility] Comment on above: Performed By: #### L [id number], [id number] ####Senior Sustainability Advisor: HENNY WADE ([phone])[address] Hemoglobin (Bld) [Mass/Vol] 9.8 g/dL Low 11.7-16.0 [facility] Comment on above: Performed By: #### L [id number], [id number] ####Senior Sustainability Advisor: HENNY WADE ([phone])[facility] ([facility])[address] [place] [address] IPF 5 Normal [facility] Comment on above: Performed By: #### L [id number], [id number] ####Senior Sustainability Advisor: HENNY WADE ([phone])[facility] ([facility])[address] [place] [address] MCH (RBC) [Entitic mass] 22.3 pg Low 26.0-34.0 [facility] Comment on above: Performed By: #### L [id number], [id number] ####Senior Sustainability Advisor: HENNY WADE ([phone])[facility])[address] [place] [address] MCHC 32.5 % Normal 30.5-36.0 [facility] Comment on above: Performed By: #### L [id number], [id number] ####Senior Sustainability Advisor: HENNY WADE ([phone])[facility] ([facility])[address] [place] [address] MCV (RBC) [Entitic vol] 68.6 fL Low 77.0-99.0 [facility] Comment on above: Performed By: #### L [id number], [id number] ####Senior Sustainability Advisor: HENNY WADE ([phone])[facility])[address] [place] [address] Platelet mean volume (Bld) [Entitic vol] 10.8 fL Normal 9.0-12.7 [facility] Comment on above: Performed By: #### L [id number], [id number] ####Senior Sustainability Advisor: HENNY WADE ([phone])[facility])[address] [place] [address] Platelets (Bld) [#/Vol] 191 10*3/uL Normal 140-440 [facility] Comment on above: Performed By: #### L [id number], [id number] ####Senior Sustainability Advisor: HENNY WADE ([phone])[facility] ([facility])[address] [place] [address] RBC (Bld) [#/Vol] 4.40 10*6/uL Normal 3.80-5.20 [facility] Comment on above: Performed By: #### L [id number], [id number] ####Senior Sustainability Advisor: HENNY AWDE ([phone])[facility] ([facility])[address] [place] [address] WBC (Bld) [#/Vol] 8.7 10*3/uL Normal 3.6-10.7 [facility] Comment on above: Performed By: #### L [id number], [id number] ####Senior Sustainability Advisor: HENNY WADE ([phone])[facility])[address] [place] [address] COMPREHENSIVE METABOLIC PANE Chavez 11-01-2023 Albumin [Mass/Vol] 2.6 g/dL Low 3.5-5.0 [facility] Comment on above: Performed By: #### L [id number] ####Senior Sustainability Advisor: HENNY WADE ([phone])[facility] ([facility])[address] [place] [address] ALP [Catalytic activity/Vol] 557 U/L High 38-126 [facility] Comment on above: Performed By: #### L [id number] ####Senior Sustainability Advisor: HENNY WADE ([phone])[facility] ([facility])[address] [place] [address] ALT [Catalytic activity/Vol] 193 U/L High 0-34 [facility] Comment on above: Performed By: #### L [id number] ####Senior Sustainability Advisor: HENNY WADE ([phone])[facility] ([facility])[address] [place] [address] Anion gap [Moles/Vol] 5 mmol/L Normal 3-13 [facility] Comment on above: Performed By: #### L [id number] ####Senior Sustainability Advisor: HENNY WADE ([phone])[facility])[address] [place] [address] AST [Catalytic activity/Vol] 361 U/L High 15-46 [facility] Comment on above: Performed By: #### L [id number] ####Senior Sustainability Advisor: HENNY WADE ([phone])[facility])[address] [place] [address] Bilirubin [Mass/Vol] 5.0 mg/dL High 0.2-1.3 [facility] Comment on above: Performed By: #### L [id number] ####Senior Sustainability Advisor: HENNY WADE ([phone])[facility] ([facility])[address] [place] [address] Calcium [Mass/Vol] 7.8 mg/dL Low 8.4-10.4 [facility] Comment on above: Performed By: #### L [id number] ####Senior Sustainability Advisor: HENNY WADE ([phone])[facility] ([facility])[address] [place] [address] Chloride [Moles/Vol] 100 mmol/L Normal 98-107 [facility] Comment on above: Performed By: #### L [id number] ####Senior Sustainability Advisor: HENNY WADE ([phone])[facility] ([facility])[address] [place] [address] CO2 [Moles/Vol] 26 mmol/L Normal 22-30 [facility] Comment on above: Performed By: #### L [id number] ####Senior Sustainability Advisor: HENNY WADE ([phone])[facility])[address] [place] [address] Creatinine [Mass/Vol] 0.47 mg/dL Low 0.52-1.04 [facility] Comment on above: Performed By: #### L [id number] ####Senior Sustainability Advisor: HENNY WADE ([phone])[facility])[address] [place] [address] GLOMERULAR FILTRATION RATE ML/MIN/1.73 SQ M.PREDICTED >90.0 Normal >60.0 [facility] Comment on above: Result Comment: Calc ulation based on the Chronic Kidney Disease Epidemiology Collaboration (CKD-EPI) equation refit without adjustment for race Performed By: #### L [id number] ####Senior Sustainability Advisor: HENNY WADE ([phone])[facility])[address] [place] [address] Glucose [Mass/Vol] 76 mg/dL Normal 70-100 [facility] Comment on above: Performed By: #### L [id number] ####Senior Sustainability Advisor: HENNY WADE ([phone])[facility] ([facility])[address] [place] [address] Potassium [Moles/Vol] 3.4 mmol/L Low 3.5-5.1 [facility] Comment on above: Performed By: #### L [id number] ####Senior Sustainability Advisor: HENNY WADE ([phone])[facility])[address] [place] [address] Protein [Mass/Vol] 6.2 g/dL Low 6.3-8.2 [facility] Comment on above: Performed By: #### L [id number] ####Senior Sustainability Advisor: HENNY WADE ([phone])[facility] ([facility])[address] [place] [address] Sodium [Moles/Vol] 132 mmol/L Low 135-145 [facility] Comment on above: Performed By: #### L [id number] ####Senior Sustainability Advisor: HENNY WADE ([phone])[facility])[address] [place] [address] Urea nitrogen [Mass/Vol] 3 mg/dL Low 7-17 [facility] Comment on above: Performed By: #### L [id number] ####Senior Sustainability Advisor: HENNY WADE ([phone])[facility] ([facility])[address] [place] [address] Comprehensive metabolic 1998 panelon 11-01-2023 Albumin [Mass/Vol] 2.6 g/dL Low 3.5 - 5.0 g/dL [facility] ALP [Catalytic activity/Vol] 557 U/L High 38 - 126 U/L [facility] ALT [Catalytic activity/Vol] 193 U/L High 0 - 34 U/L [facility] Anion gap [Moles/Vol] 5 mmol/L 3 - 13 mmol/L [facility] AST [Catalytic activity/Vol] 361 U/L High 15 - 46 U/L [facility] Bilirubin [Mass/Vol] 5.0 mg/dL High 0.2 - 1 .3 mg/dL [facility] Calcium [Mass/Vol] 7.8 mg/dL Low 8.4 - 10. 4 mg/dL [facility] Chloride [Moles/Vol] 100 mmol/L 98 - 10 7 mmol/L [facility] CO2 [Moles/Vol] 26 mmol/L 22 - 30 mmol/L [facility] Creatinine [Mass/Vol] 0.47 mg/dL Low 0.52 - 1.04 mg/dL [facility] GFR/1.73 sq M.predicted (S/P/Bld) [Vol rate/Area] - PINF [facility] Comment on above: Calculation based on the Chronic Kidney Disease Epidemiology Collaboration (CKD-EPI) equation refit without adjustment for race Glucose [Mass/Vol] 76 mg/dL 70 - 100 mg/dL [facility] Interpretation and review of laboratory results Abnormal [facility] Potassium [Moles/Vol] 3.4 mmol/L Low 3.5 - 5.1 mmol/L [facility] Protein [Mass/Vol] 6.2 g/dL Low 6.3 - 8.2 g/dL [facility] Sodium [Moles/Vol] 132 mmol/L Low 135 - 145 mmol/L [facility] Urea nitrogen [Mass/Vol] 3 mg/dL Low 7 - 17 mg/dL [facility] HAYNES VIRUS PANELon 0 11-01-2023 EBV EARLY ANTIGEN IGG 0.5 AI Normal <=0.9 [facility] Comment on above: Result Comment: ORDE R COMMENTS:Interpretive Information:Results of 1.1 AI or greater = POSITIVEResults of 0.9 AI - 1.0 Debra = EQUIVOCALResults of 0.8 AI or less = NEGATIVEThis is a qualitative test. The numeric antibody index reported does not correspond to antibody concentrations. Performed By: #### L [id number] ####Senior Sustainability Advisor: HENNY WADE ([phone])[facility] ([address] EBV NUCLEAR ANTIGEN IGG <0.2 Normal <=0.9 S [facility] Comment on above: Performed By: #### L [id number] ####Senior Sustainability Advisor: HENNY WADE ([phone])[facility] ([facility])[address] [place] [address] EBV VIRAL CAPSID ANTIGEN IGG 0.6 AI Normal <=0.9 [facility] Comment on above: Performed By: #### L [id number] ####Senior Sustainability Advisor: HENNY WADE ([phone])[facility] ([facility])[address] [place] [address] EBV VIRAL CAPSID ANTIGEN IGM 2.3 AI High <=0.9 [facility] Comment on above: Performed By: #### L [id number] ####Senior Sustainability Advisor: HENNY WADE ([phone])[facility] ([facility])[address] [place] [address] IDNon 11-01-2023 IDN Normal [facility] IDN Normal [facility] IDN Normal [facility] Laboratory - Chemistry and C hemistry - challengeon 11-01-2023 Ceruloplasmin [Mass/Vol] 25 mg/dL 16 - 45 mg/dL [facility] Comment on above: REFERENCE INTERVAL: Ceruloplasmin Access complete set of age- and/or gender-specific reference intervals for this test in the [facility] Test Directory ([employer]). Performed By: [facility] [address] [place] [id number] Automotive Alignment Specialist: Liborio Martinez MD, PhD CLIA Number: [id number] Laboratory - Coagulationon 0 11-01-2023 PT Coag (Bld) [Time] 13.5 s High 9.0 - 12.0 s [facility] Laboratory - Microbiology an d Antimicrobial susceptibilityon 11-01-2023 HBV core Ab IA Ql Negative Negative [facility] Comment on above: INTERPRETIVE INFORMA TION: Hepatitis B Core Ab (Total) This assay should not be used for blood donor screening, associated re-entry protocols, or for screening Human Cells, Tissues and Cellular and Tissue-Based Products (HCT/P). Performed By: [facility] [address] [place] [address] Automotive Alignment Specialist: Liborio Martinez MD, PhD CLIA Number: [id number] Laboratory - Serology - non- microon 11-01-2023 Mitochondria M2 IgG Qn (S) 10.4 [facility] Comment on above: REFERENCE INTERVAL: Mitochondrial (M2) Antibody, IgG 20.0 Units or less ......... Negative 20.1 - 24.9 Units........... Equivocal 25.0 Units or greater....... Positive Anti-mitochondrial antibodies (AMA) are thought to be present in 90-95% of patients with primary biliary cholangitis (PBC). However, the frequency of detected antibodies may be cohort or assay dependent, as lower sensitivities have been reported. Not all PBC patients are positive for AMA; some patients may be positive for SP100 and/or GP210 antibodies. A negative result does not rule out PBC. Performed By: [facility] [address] [place] [address] Automotive Alignment Specialist: Liborio Martinez MD, PhD CLIA Number: [id number] MANUAL DIFFERENTIALon 2023 ANISOCYTOSIS PRESENCE IN BLOOD BY LIGHT MICROSCOPY Slight Abnormal (none) [facility] Comment on above: Performed By: #### L [id number], [id number] ####Senior Sustainability Advisor: HENNY WADE ([phone])[address] CELLS COUNTED TOTAL (#) IN BLOOD 100 Normal [facility] Comment on above: Performed By: #### L [id number], [id number] ####Senior Sustainability Advisor: HENNY WADE ([phone])[facility])[address] [place] [address] DIFFERENTIAL METHOD Manual differential performed Normal [facility] Comment on above: Result Comment: SPENCER Miranda COMMENTS:Differential performed on albumin slide. Performed By: #### L [id number], [id number] ####Senior Sustainability Advisor: HENNY WADE ([phone])[facility])[address] [place] [address] LEUKOCYTES (10*3/UL) NUCLEATED ERYTHROCYTE ADJUST 8.7 10*3/uL Normal 3.6-10.7 [facility] Comment on above: Performed By: #### L [id number], [id number] ####Senior Sustainability Advisor: HENNY WADE ([phone])[facility])[address] [place] [address] [place] LYMPHOCYTES (10*3/UL) IN BLOOD BY MANUAL COUNT 5.9 10*3/uL High 1.0-4.3 [facility] Comment on above: Performed By: #### L [id number], [id number] ####Senior Sustainability Advisor: HENNY WADE ([phone])[facility] ([facility])[address] [place] [address] LYMPHOCYTES TOTAL PER COUNTED LEUKOCYTES BY MANUAL COUNT 68 Normal [facility] Comment on above: Performed By: #### Barrett [id number], [id number] ####Senior Sustainability Advisor: HENNY WADE ([phone])[facility])[address] [place] [address] LYMPHOCYTES VARIANT/100 LEUKOCYTES IN BLOOD 3 % High <=0 [facility] Comment on above: Performed By: #### Barrett [id number], [id number] ####Senior Sustainability Advisor: HENNY WADE ([phone])[facility])[address] [place] [address] [place] LYMPHOCYTES/100 LEUKOCYTES IN BLOOD BY MANUAL COUNT 68 % High 15-45 [facility] Comment on above: Performed By: #### Barrett [id number], [id number] ####Senior Sustainability Advisor: HENNY WADE ([phone])[facility])[address] [place] [address] [place] MICROCYTES (PRESENCE) IN BLOOD BY LIGHT MICROSCOPY Slight Abnormal (none) [facility] Comment on above: Performed By: #### L [id number], [id number] ####Senior Sustainability Advisor: HENNY WADE ([phone])[facility])[address] [place] [address] [place] MONOCYTES (10*3/UL) IN BLOOD BY MANUAL COUNT 0.4 10*3/uL Normal 0.0-0.9 [facility] Comment on above: Performed By: #### L [id number], [id number] ####Senior Sustainability Advisor: HENNY WADE ([phone])[facility])[address] [place] [address] [place] MONOCYTES TOTAL PER COUNTED LEUKOCYTES BY MANUAL COUNT 5 Normal [facility] Comment on above: Performed By: #### L [id number], [id number] ####Senior Sustainability Advisor: HENNY WADE ([phone])[facility])[address] [place] [address] [place] MONOCYTES/100 LEUKOCYTES IN BLOOD BY MANUAL COUNT 5 % Normal 5-13 [facility] Comment on above: Performed By: #### L [id number], [id number] ####Senior Sustainability Advisor: HENNY WADE ([phone])[facility])[address] [place] [address] [place] MYELOCYTES (10*3/UL) IN BLOOD BY MANUAL COUNT 0.2 10*3/uL High <=0.0 [facility] Comment on above: Performed By: #### L [id number], [id number] ####Senior Sustainability Advisor: HENNY WADE ([phone])[facility])[address] [place] [address] [place] MYELOCYTES COUNTED BY MANUAL COUNT 2 Normal [facility] Comment on above: Performed By: #### L [id number], [id number] ####Senior Sustainability Advisor: HENNY WADE ([phone])[facility])[address] [place] [address] [place] MYELOCYTES/100 LEUKOCYTES IN BLOOD BY MANUAL COUNT 2 % High <=0 [facility] Comment on above: Performed By: #### L [id number], [id number] ####Senior Sustainability Advisor: HENNY WADE ([phone])[facility])[address] [place] [address] [place] NEUTROPHILS (SEGS+BANDS) (10*3/UL) BY MANUAL COUNT 1.9 10*3/uL Normal 1.8-7.0 [facility] Comment on above: Performed By: #### L [id number], [id number] ####Senior Sustainability Advisor: HENNY WADE ([phone])[facility] ([facility])[address] [place] [address] NEUTROPHILS TOTAL PER COUNTED LEUKOCYTES BY MANUAL COUNT 22 Normal [facility] Comment on above: Performed By: #### L [id number], [id number] ####Senior Sustainability Advisor: HENNY WADE ([phone])[facility] ([facility])[address] [place] [address] PLATELET MORPHOLOGY IN BLOOD Normal Normal [facility] Comment on above: Performed By: #### L [id number], [id number] ####Senior Sustainability Advisor: HENNY WADE ([phone])[facility])[address] [place] [address] POIKILOCYTOSIS (PRESENCE) IN BLOOD BY LIGHT MICROSCOPY Slight Abnormal (none) [facility] Comment on above: Performed By: #### L [id number], [id number] ####Senior Sustainability Advisor: HENNY WADE ([phone])[facility] ([facility])[address] [place] [address] SEGEMENTED NEUTROPHILS/100 LEUKOCYTES BY MANUAL COUNT 22 % Low 38-82 [facility] Comment on above: Performed By: #### L [id number], [id number] ####Senior Sustainability Advisor: HENNY WADE ([phone])[facility] ([facility])[address] [place] [address] SMUDGE CELLS PRESENCE IN BLOOD BY LIGHT MICROSCOPY Present Abnormal (none) [facility] Comment on above: Performed By: #### L [id number], [id number] ####Senior Sustainability Advisor: HENNY WADE ([phone])[facility] ([facility])[address] [place] [address] TARGET CELLS IN BLOOD BY LIGHT MICROSCOPY Slight Abnormal (none) [facility] Comment on above: Performed By: #### L [id number], [id number] ####Senior Sustainability Advisor: HENNY WADE ([phone])[facility] ([facility])[address] [place] [address] [place] VARIANT LYMPHOCYTES (10*3/UL) IN BLOOD BY MANUAL COUNT 0.3 10*3/uL High <=0.0 [facility] Comment on above: Performed By: #### L [id number], [id number] ####Senior Sustainability Advisor: HENNY WADE ([phone])[facility] ([facility])[address] [place] [address] VARIANT LYMPHOCYTES TOTAL PER COUNTED LEUKOCYTES BY MANUAL COUNT 3 Normal [facility] Comment on above: Performed By: #### L [id number], [id number] ####Senior Sustainability Advisor: HENNY WADE ([phone])[facility] ([facility])[address] [place] [address] Manual differential performe d Ql (Bld)on 11-01-2023 Anisocytosis Ql (Bld) Slight Abnormal (none) [facility] Atypical Lymphocytes Manual 3 [facility] Cells Counted Total (Bld) [#] 100 {cells} [facility] Differential Method Manual differential performed [facility] Interpretation and review of laboratory results Abnormal [facility] Lymphocytes (Bld) [#/Vol] 5.9 10*3/uL High 1.0 - 4.3 10*3/uL [facility] Lymphocytes Manual 68 [facility] Lymphocytes/100 WBC (Bld) 68 % High 15 - 45 % [facility] Microcytes Ql (Bld) Slight Abnormal (none) [facility] Monocytes (Bld) [#/Vol] 0.4 10*3/uL 0.0 - 0.9 10*3/uL [facility] Monocytes Manual 5 [facility] alth Monocytes/100 WBC (Bld) 5 % 5 - 13 % [facility] Myelocytes (Bld) [#/Vol] 0.2 10*3/uL High NINF - 0.0 10*3/uL [facility] Myelocytes Manual 2 [facility] Myelocytes/100 WBC (Bld) 2 % High NINF - 0 % [facility] Neutrophils (Bld) [#/Vol] 1.9 10*3/uL 1.8 - 7.0 10*3/uL [facility] Neutrophils Manual 22 [facility] Platelet morphology finding Nom (Bld) Normal [facility] Poikilocytosis LM Ql (Bld) Slight Abnormal (none) [facility] Segmented neutrophils/100 WBC (Bld) 22 % Low 38 - 82 % [employer] Smudge cells/100 WBC (Bld) Present Abnormal (none) per 100 WBCs [employer] Target cells LM Ql (Bld) Slight Abnormal (none) [employer] Variant lymphocytes (Bld) [#/Vol] 0.3 10*3/uL High NINF - 0.0 10*3/uL [employer] Variant lymphocytes/100 WBC (Bld) 3 % High NINF - 0 % [employer] [facility] WBC corrected for nucl RBC (Bld) [#/Vol] 8.7 10*3/uL 3.6 - 10.7 10*3/uL [employer] Differential perform ed on albumin slide. [employer] No Panel Informationon 10-31 Patient Name: ANNE MARIE BATES : 1995 Exam Date/Time: 11/01/2023 15:46 Procedure: US LIVER DOPPLER Ordering Provider: RAGLAND HARIKRISHNA Reason For Exam: Elevated LFTs HISTORY: Abnormal liver function tests Examination of hepatic and perihepatic vasculature is performed with duplex sonography. Exam is limited due to patient's morbid obesity. Comparison CT from 06/03/2023 and MRI from 10/29/2023 FINDINGS: 1. Patent portal venous system/splenic vein with normal flow direction without definite thrombus on this limited exam 2. Patent hepatic artery 3. Patent hepatic veins with normal flow direction/patent IVC without definite thrombus on this limited exam Report Dictated on Electronically Signed By: Jaswinder Hyde MD Electronically Signed Date/Time: 11/01/2023 4:15 PM T [facility] RADIOLOGY SYSTEM Jaswinder Hyde MD - 11/01/2023 Patient Name: ANNE MARIE PETERSON : 1995 Exam Date/Time: 11/01/2023 15:46 Procedure: US LIVER DOPPLER Ordering Provider: RAGLAND HARIKRISHNA Reason For Exam: Elevated LFTs HISTORY: Abnormal liver function tests Examination of hepatic and perihepatic vasculature is performed with duplex sonography. Exam is limited due to patient's morbid obesity. Comparison CT from 06/03/2023 and MRI from 10/29/2023 FINDINGS: 1. Patent portal venous system/splenic vein with normal flow direction without definite thrombus on this limited exam 2. Patent hepatic artery 3. Patent hepatic veins with normal flow direction/patent IVC without definite thrombus on this limited exam Report Dictated on Electronically Signed By: Jaswinder Hyde MD Electronically Signed Date/Time: 11/01/2023 4:15 PM EDT [facility] Radiology Study observation (narrative) [facility] No Panel InformationOrdered By: Jaswinder Hyde on 11-01-2023 [facility] Work Phone: No Panel InformationOrdered By: Zain Oakley on 11-01-2023 EBV EARLY ANTIGEN IgG 0.5 [facility] EBV NUCLEAR ANTIGEN IGG [facility] EBV VIRAL CAPSID ANTIGEN IGG 0.6 [facility] EBV VIRAL CAPSID ANTIGEN IGM 2.3 High [facility] Interpretation and review of laboratory results Abnormal [facility] Interpretive Information: Results of 1.1 AI or greater = POSITIVE Results of 0.9 AI - 1.0 Debra = EQUIVOCAL Results of 0.8 AI or less = NEGATIVE This is a qualitative test. The numeric antibody index reported does not correspond to antibody concentrations. [facility] PROTHROMBIN TIMEon 4 INR Coag (PPP) [Relative time] 1.2 {INR} High 0.9-1.1 [facility] Comment on above: Result Comment: Christiano mmended Anticoagulant Therapy: SEE BELOW----- INR of 2.0 - 3.0 : - Prophylaxis of Venous Thrombosis (high-risk surgery) - Treatment of Venous Thrombosis - Treatment of Pulmonary Embolism (Includes tissue heart valves, Acute Myocardial Infarction to prevent systemic embolism, Valvular Heart Disease, and Atrial Fibrillation)----- INR of 2.5 - 3.5 : - Mechanical Prosthetic Valves (high risk) - If oral anticoagulant therapy is used to prevent Myocardial Infarction Performed By: #### L [id number] ####Senior Sustainability Advisor: HENNY WADE ([phone])[facility] ([facility] PT Coag (PPP) [Time] 13.5 s High 9.0-12.0 [facility] Comment on above: Performed By: #### L [id number] ####Senior Sustainability Advisor: HENNY WADE ([phone])[facility] ([facility])[address] [place] [id number] [facility] PT Coag (Bld) [Time]on 10-31 INR Coag (PPP) [Relative time] 1.2 {INR} High 0.9 - 1.1 [facility] Comment on above: Recommended Anticoag ulant Therapy: SEE BELOW ----- INR of 2.0 - 3.0 : - Prophylaxis of Venous Thrombosis (high-risk surgery) - Treatment of Venous Thrombosis - Treatment of Pulmonary Embolism (Includes tissue heart valves, Acute Myocardial Infarction to prevent systemic embolism, Valvular Heart Disease, and Atrial Fibrillation) ----- INR of 2.5 - 3.5 : - Mechanical Prosthetic Valves (high risk) - If oral anticoagulant therapy is used to prevent Myocardial Infarction Interpretation and review of laboratory results Abnormal [facility] Progress Noteon 11-01-2023 Progress Note Normal [facility] Progress Note Normal [facility] Progress Note Normal [facility] US LIVER DOPPLERon US LIVER DOPPLER Normal [facility] VITAMIN B1, WHOLE BLOOD (BKR [facility])on 11-01-2023 [facility] VITAMIN B1 (THIAMINE), BLOOD, LC/MS/MS 91 nmol/L Normal 78-185 [facility] Comment on above: Result Comment: Precious min supplementation within 24 hours prior toblood draw may affect the accuracy of the results.This test was developed and its analytical performancecharacteristics have been determined by [employer] [place], [place]. It hasnot been cleared or approved by the U.S. Food and DrugAdministration. This assay has been validated pursuantto the CLIA regulations and is used for clinicalpurposes.Test Performed by [facility],[address] [place] [address] [id number] Seth M.D., Ph.D., Director of [phone], CLIA [id number] Performed By: #### L [id number] ####[facility] ([facility]DB[facility])[address] [place], [place] ZINC (BKR [facility])on [facility] ZINC 73 mcg/dL Normal 60-130 [facility] Comment on above: Result Comment: This test was developed and its analytical performancecharacteristics have been determined by [employer] [place], [place]. It hasnot been cleared or approved by the U.S. Food and DrugAdministration. This assay has been validated pursuantto the CLIA regulations and is used for clinicalpurposes.Test Performed by [facility],[address] [place] [address] [id number] Seth M.D., Ph.D., Director of [phone], CLIA [id number] Performed By: #### L [id number] ####[facility] ([facility])[address] [place], [place] [facility] CBC W Auto Differential pane l (Bld)Ordered By: Kristen Carranza on 10-31-2023 Erythrocyte distribution width (RBC) [Ratio] 18.9 % High 11.5 - 15.0 % [facility] Hematocrit (Bld) [Volume fraction] 33.8 % Low 35.0 - 47.0 % [facility] Hemoglobin (Bld) [Mass/Vol] 10.8 g/dL Low 11.7 - 16.0 g/dL [facility] Interpretation and review of laboratory results Abnormal [facility] IPF 4 [facility] MCH (RBC) [Entitic mass] 22.6 pg Low 26.0 - 34.0 pg [facility] MCHC (RBC) [Mass/Vol] 32.0 % 30.5 - 36.0 % [facility] MCV (RBC) [Entitic vol] 70.7 fL Low 77.0 - 99.0 fL [facility] Platelet mean volume (Bld) [Entitic vol] [facility] Comment on above: Unable to calculate. Platelets (Bld) [#/Vol] 185 10*3/uL 140 - 440 10*3/uL [facility] RBC (Bld) [#/Vol] 4.78 10*6/uL 3.80 - 5.2 0 10*6/uL [facility] WBC (Bld) [#/Vol] 7.5 10*3/uL 3.6 - 10.7 10*3/uL [facility] CBC WITH AUTO DIFFERENTIALon 10-31-2023 Erythrocyte distribution width (RBC) [Ratio] 18.9 % High 11.5-15.0 [facility] Comment on above: Performed By: #### L [id number], [id number] ####Senior Sustainability Advisor: HENNY WADE ([phone])[facility])[address] [place] [address] Hematocrit (Bld) [Volume fraction] 33.8 % Low 35.0-47.0 [facility] Comment on above: Performed By: #### Barrett [id number], [id number] ####Senior Sustainability Advisor: HENNY WADE ([phone])[facility])[address] [place] [address] Hemoglobin (Bld) [Mass/Vol] 10.8 g/dL Low 11.7-16.0 [facility] Comment on above: Performed By: #### L [id number], [id number] ####Senior Sustainability Advisor: HENNY WADE ([phone])[facility])[address] [place] [address] IPF 4 Normal [facility] Comment on above: Performed By: #### L [id number], [id number] ####Senior Sustainability Advisor: HENNY WADE ([phone])[facility] ([facility])[address] [place] [address] MCH (RBC) [Entitic mass] 22.6 pg Low 26.0-34.0 [facility] Comment on above: Performed By: #### L [id number], [id number] ####Senior Sustainability Advisor: HENNY WADE ([phone])[facility])[address] [place] [address] MCHC 32.0 % Normal 30.5-36.0 [facility] Comment on above: Performed By: #### L [id number], [id number] ####Senior Sustainability Advisor: HENNY WADE ([phone])[facility])[address] [place] [address] MCV (RBC) [Entitic vol] 70.7 fL Low 77.0-99.0 S [facility] Comment on above: Performed By: #### L [id number], [id number] ####Senior Sustainability Advisor: HENNY WADE ([phone])[facility])[address] [place] [address] MPV Normal [facility] Comment on above: Result Comment: Unab le to calculate. Performed By: #### L [id number], [id number] ####Senior Sustainability Advisor: HENNY WADE ([phone])[facility])[address] [place] [address] Platelets (Bld) [#/Vol] 185 10*3/uL Normal 140-440 [facility] Comment on above: Performed By: #### Barrett [id number], [id number] ####Senior Sustainability Advisor: HENNY WADE ([phone])[facility])[address] [place] [address] RBC (Bld) [#/Vol] 4.78 10*6/uL Normal 3.80-5.20 [facility] Comment on above: Performed By: #### L [id number], [id number] ####Senior Sustainability Advisor: HENNY WADE ([phone])[facility])[address] [place] [address] WBC (Bld) [#/Vol] 7.5 10*3/uL Normal 3.6-10.7 [facility] Comment on above: Performed By: #### L [id number], [id number] ####Senior Sustainability Advisor: HENNY WADE ([phone])[facility])[address] [place] [address] COMPREHENSIVE METABOLIC PANE Chavez 10-31-2023 Albumin [Mass/Vol] 2.9 g/dL Low 3.5-5.0 [facility] Comment on above: Performed By: #### L AB17 ####Senior Sustainability Advisor: HENNY WADE ([phone])[facility] ([facility])[address] [place] [address] ALP [Catalytic activity/Vol] 646 U/L High 38-126 [facility] Comment on above: Performed By: #### L AB17 ####Senior Sustainability Advisor: HENNY WADE ([phone])[facility] ([facility])[address] [place] [address] ALT [Catalytic activity/Vol] 233 U/L High 0-34 [facility] Comment on above: Performed By: #### L AB17 ####Senior Sustainability Advisor: HENNY WADE ([phone])[facility] ([facility])[address] [place] [address] Anion gap [Moles/Vol] 7 mmol/L Normal 3-13 [facility] Comment on above: Performed By: #### L AB17 ####Senior Sustainability Advisor: HENNY WADE ([phone])[facility] ([facility])[address] [place] [address] AST [Catalytic activity/Vol] 449 U/L High 15-46 [facility] Comment on above: Performed By: #### L AB17 ####Senior Sustainability Advisor: HENNY WADE ([phone])[facility] ([facility])[address] [place] [address] Bilirubin [Mass/Vol] 5.2 mg/dL High 0.2-1.3 [facility] Comment on above: Performed By: #### L AB17 ####Senior Sustainability Advisor: HENNY WADE ([phone])[facility] ([facility])[address] [place] [address] Calcium [Mass/Vol] 8.4 mg/dL Normal 8.4-10.4 [facility] Comment on above: Performed By: #### L AB17 ####Senior Sustainability Advisor: HENNY WADE ([phone])[facility] ([facility])[address] [place] [address] [place] Chloride [Moles/Vol] 100 mmol/L Normal 98-107 [facility] Comment on above: Performed By: #### L AB17 ####Senior Sustainability Advisor: HENNY WADE ([phone])[facility] ([facility])[address] [place] [address] CO2 [Moles/Vol] 26 mmol/L Normal 22-30 [facility] Comment on above: Performed By: #### L AB17 ####Senior Sustainability Advisor: HENNY WADE ([phone])[facility] ([facility])[address] [place] [address] Creatinine [Mass/Vol] 0.54 mg/dL Normal 0.52-1.04 [facility] Comment on above: Performed By: #### L AB17 ####Senior Sustainability Advisor: HENNY WADE ([phone])[facility] ([facility])[address] [place] [address] GLOMERULAR FILTRATION RATE ML/MIN/1.73 SQ M.PREDICTED >90.0 Normal >60.0 [facility] Comment on above: Result Comment: Calc ulation based on the Chronic Kidney Disease Epidemiology Collaboration (CKD-EPI) equation refit without adjustment for race Performed By: #### L AB17 ####Senior Sustainability Advisor: HENNY WADE ([phone])[facility] ([facility])[address] [place] [address] [place] Glucose [Mass/Vol] 76 mg/dL Normal 70-100 [facility] Comment on above: Performed By: #### L AB17 ####Senior Sustainability Advisor: HENNY WADE ([phone])[facility] ([facility])[address] [place] [address] [place] Potassium [Moles/Vol] 3.7 mmol/L Normal 3.5-5.1 [facility] Comment on above: Performed By: #### L AB17 ####Senior Sustainability Advisor: HENNY WADE ([phone])[facility] ([facility])[address] [place] [address] Protein [Mass/Vol] 6.6 g/dL Normal 6.3-8.2 [facility] Comment on above: Performed By: #### L AB17 ####Senior Sustainability Advisor: HENNY WADE ([phone])[facility])[address] [place] [address] Sodium [Moles/Vol] 133 mmol/L Low 135-145 [facility] Comment on above: Performed By: #### L AB17 ####Senior Sustainability Advisor: HENNY WADE ([phone])[facility] ([facility])[address] [place] [address] Urea nitrogen [Mass/Vol] 2 mg/dL Low 7-17 [facility] Comment on above: Performed By: #### L AB17 ####Senior Sustainability Advisor: HENNY WADE ([phone])[facility] ([facility])[address] [place] [address] Comprehensive metabolic 1998 panelon 10-31-2023 Albumin [Mass/Vol] 2.9 g/dL Low 3.5 - 5.0 g/dL [facility] ALP [Catalytic activity/Vol] 646 U/L High 38 - 126 U/L [facility] ALT [Catalytic activity/Vol] 233 U/L High 0 - 34 U/L [facility] Anion gap [Moles/Vol] 7 mmol/L 3 - 13 mmol/L [facility] AST [Catalytic activity/Vol] 449 U/L High 15 - 46 U/L [facility] Bilirubin [Mass/Vol] 5.2 mg/dL High 0.2 - 1 .3 mg/dL [facility] Calcium [Mass/Vol] 8.4 mg/dL 8.4 - 10. 4 mg/dL [facility] Chloride [Moles/Vol] 100 mmol/L 98 - 10 7 mmol/L [facility] CO2 [Moles/Vol] 26 mmol/L 22 - 30 mmol/L [facility] Creatinine [Mass/Vol] 0.54 mg/dL 0.52 - 1.04 mg/dL [facility] GFR/1.73 sq M.predicted (S/P/Bld) [Vol rate/Area] - PINF [facility] Comment on above: Calculation based on the Chronic Kidney Disease Epidemiology Collaboration (CKD-EPI) equation refit without adjustment for race Glucose [Mass/Vol] 76 mg/dL 70 - 100 mg/dL [facility] Interpretation and review of laboratory results Abnormal [facility] Potassium [Moles/Vol] 3.7 mmol/L 3.5 - 5.1 mmol/L [facility] Protein [Mass/Vol] 6.6 g/dL 6.3 - 8.2 g/dL [facility] Sodium [Moles/Vol] 133 mmol/L Low 135 - 145 mmol/L [facility] Urea nitrogen [Mass/Vol] 2 mg/dL Low 7 - 17 mg/dL [facility] IDNon 10-31-2023 IDN Normal [facility] Laboratory - Chemistry and C hemistry - challengeon 10-31-2023 Alpha 1 antitrypsin [Mass/Vol] 169 mg/dL 90 - 200 mg/dL [facility] Comment on above: To convert to umol/L , multiply mg/dL by 0.185 Performed By: [facility] [address] [place] [id number] [employer] Specialist: Liborio Martinez MD, PhD CLIA Number: [id number] MANUAL DIFFERENTIALon 2023 ANISOCYTOSIS PRESENCE IN BLOOD BY LIGHT MICROSCOPY Slight Abnormal (none) [facility] Comment on above: Performed By: #### Barrett [id number], [id number] ####Senior Sustainability Advisor: HENNY WADE ([phone])[address] BAND NEUTROPHILS TOTAL PER COUNTED LEUKOCYTES BY MANUAL COUNT 11 Normal [facility] Comment on above: Performed By: #### Barrett MENDEZ, [id number] ####Senior Sustainability Advisor: HENNY WADE ([phone])[facility])[address] [place] [address] BANDS 0.8 10*3/uL High <=0.0 [facility] Comment on above: Performed By: #### Barrett [id number], [id number] ####Senior Sustainability Advisor: HENNY WADE ([phone])[facility])[address] [place] [address] CELLS COUNTED TOTAL (#) IN BLOOD 100 Normal [facility] Comment on above: Performed By: #### L [id number], [id number] ####Senior Sustainability Advisor: HENNY WADE ([phone])[facility])[address] [place] [address] DIFFERENTIAL METHOD Manual differential performed Normal [facility] Comment on above: Result Comment: SPENCER Miranda COMMENTS:Differential performed on albumin slide Performed By: #### L [id number], [id number] ####Senior Sustainability Advisor: HENNY WADE ([phone])[facility])[address] [place] [address] LEUKOCYTES (10*3/UL) NUCLEATED ERYTHROCYTE ADJUST 7.5 10*3/uL Normal 3.6-10.7 [facility] Comment on above: Performed By: #### L [id number], [id number] ####Senior Sustainability Advisor: HENNY WADE ([phone])[facility])[address] [place] [address] LYMPHOCYTES (10*3/UL) IN BLOOD BY MANUAL COUNT 3.9 10*3/uL Normal 1.0-4.3 [facility] Comment on above: Performed By: #### Barrett [id number], [id number] ####Senior Sustainability Advisor: HENNY WADE ([phone])[facility])[address] [place] [address] LYMPHOCYTES TOTAL PER COUNTED LEUKOCYTES BY MANUAL COUNT 52 Normal [facility] Comment on above: Performed By: #### L [id number], [id number] ####Senior Sustainability Advisor: HENNY WADE ([phone])[facility])[address] [place] [address] [place] LYMPHOCYTES VARIANT/100 LEUKOCYTES IN BLOOD 4 % High <=0 [facility] Comment on above: Performed By: #### L [id number], [id number] ####Senior Sustainability Advisor: HENNY WADE ([phone])[facility])[address] [place] [address] [place] LYMPHOCYTES/100 LEUKOCYTES IN BLOOD BY MANUAL COUNT 52 % High 15-45 [facility] Comment on above: Performed By: #### L [id number], [id number] ####Senior Sustainability Advisor: HENNY WADE ([phone])[facility] ([facility])[address] [place] [address] [place] METAMYELOCYTES (10*3/UL) IN BLOOD BY MANUAL COUNT 0.1 10*3/uL High <=0.0 [facility] Comment on above: Performed By: #### L JI6615, [id number] ####Senior Sustainability Advisor: HENNY WADE ([phone])[facility] ([facility])[address] [place] [address] [place] METAMYELOCYTES TOTAL PER COUNTED LEUKOCYTES BY MANUAL COUNT 1 Normal [facility] Comment on above: Performed By: #### L [id number], [id number] ####Senior Sustainability Advisor: HENNY WADE ([phone])[facility] ([facility])[address] [place] [address] [place] METAMYELOCYTES/100 LEUKOCYTES IN BLOOD BY MANUAL COUNT 1 % High <=0 [facility] Comment on above: Performed By: #### L [id number], [id number] ####Senior Sustainability Advisor: HENNY WADE ([phone])[facility] ([facility])[address] [place] [address] [place] MICROCYTES (PRESENCE) IN BLOOD BY LIGHT MICROSCOPY Slight Abnormal (none) [facility] Comment on above: Performed By: #### L [id number], [id number] ####Senior Sustainability Advisor: HENNY WADE ([phone])[facility] ([facility])[address] [place] [address] [place] MONOCYTES (10*3/UL) IN BLOOD BY MANUAL COUNT 0.9 10*3/uL Normal 0.0-0.9 [facility] Comment on above: Performed By: #### L CA4787, [id number] ####Senior Sustainability Advisor: HENNY WADE ([phone])[facility])[address] [place] [address] [place] MONOCYTES TOTAL PER COUNTED LEUKOCYTES BY MANUAL COUNT 12 Normal [facility] Comment on above: Performed By: #### L [id number], [id number] ####Senior Sustainability Advisor: HENNY WADE ([phone])[facility] ([facility])[address] [place] [address] [place] MONOCYTES/100 LEUKOCYTES IN BLOOD BY MANUAL COUNT 12 % Normal 5-13 [facility] Comment on above: Performed By: #### L [id number], [id number] ####Senior Sustainability Advisor: HENNY WADE ([phone])[facility] ([facility])[address] [place] [address] [place] NEUTROPHILS (SEGS+BANDS) (10*3/UL) BY MANUAL COUNT 2.3 10*3/uL Normal 1.8-7.0 [facility] Comment on above: Performed By: #### L [id number], [id number] ####Senior Sustainability Advisor: HENNY WADE ([phone])[facility])[address] [place] [address] NEUTROPHILS BAND FORM/100 LEUKOCYTES IN BLOOD BY MANUAL COUNT 11 % High <=0 [facility] Comment on above: Performed By: #### L QP5445, [id number] ####Senior Sustainability Advisor: HENNY WADE ([phone])[facility] ([facility])[address] [place] [address] NEUTROPHILS TOTAL PER COUNTED LEUKOCYTES BY MANUAL COUNT 20 Normal [facility] Comment on above: Performed By: #### L [id number], [id number] ####Senior Sustainability Advisor: HENNY WADE ([phone])[facility] ([facility])[address] [place] [address] OVALOCYTES PRESENCE IN BLOOD BY LIGHT MICROSCOPY Slight Abnormal (none) [facility] Comment on above: Performed By: #### L [id number], [id number] ####Senior Sustainability Advisor: HENNY WADE ([phone])[facility])[address] [place] [address] [place] PLATELET MORPHOLOGY IN BLOOD Normal Normal [facility] Comment on above: Performed By: #### L [id number], [id number] ####Senior Sustainability Advisor: HENNY WADE ([phone])[facility] ([facility])[address] [place] [address] [place] POIKILOCYTOSIS (PRESENCE) IN BLOOD BY LIGHT MICROSCOPY Slight Abnormal (none) [facility] Comment on above: Performed By: #### L [id number], [id number] ####Senior Sustainability Advisor: HENNY WADE ([phone])[facility])[address] [place] [address] SEGEMENTED NEUTROPHILS/100 LEUKOCYTES BY MANUAL COUNT 20 % Low 38-82 [facility] Comment on above: Performed By: #### L IW8570, [id number] ####Senior Sustainability Advisor: HENNY WADE ([phone])[facility])[address] [place] [address] SEGMENTED NEUTROPHILS (10*3/UL)IN BLOOD BY MANUAL COUNT 2.3 10*3/uL Normal 1.8-7.5 [facility] Comment on above: Performed By: #### L [id number], [id number] ####Senior Sustainability Advisor: HENNY WADE ([phone])[facility])[address] [place] [address] SMUDGE CELLS PRESENCE IN BLOOD BY LIGHT MICROSCOPY Present Abnormal (none) [facility] Comment on above: Performed By: #### L [id number], [id number] ####Senior Sustainability Advisor: HENNY WADE ([phone])[facility])[address] [place] [address] TARGET CELLS IN BLOOD BY LIGHT MICROSCOPY Slight Abnormal (none) [facility] Comment on above: Performed By: #### L [id number], [id number] ####Senior Sustainability Advisor: HENNY WADE ([phone])[facility])[address] [place] [address] VARIANT LYMPHOCYTES (10*3/UL) IN BLOOD BY MANUAL COUNT 0.3 10*3/uL High <=0.0 [facility] Comment on above: Performed By: #### L [id number], [id number] ####Senior Sustainability Advisor: HENNY WADE ([phone])[facility])[address] [place] [address] VARIANT LYMPHOCYTES TOTAL PER COUNTED LEUKOCYTES BY MANUAL COUNT 4 Normal [facility] Comment on above: Performed By: #### L [id number], [id number] ####Senior Sustainability Advisor: HENNY WADE ([phone])[address] MR Abdomen WO contraston Patient Name: ANNE MARIE BATES : 1995 Exam Date/Time: 10/29/2023 19:34 Procedure: MR ABDOMEN WO CONTRAST Ordering Provider: SOLIS LISA Reason For Exam: elevated LFTs, bilirubin MRI ABDOMEN WITHOUT with MRCP EXAM DATE AND TIME: 10/29/2023 7:34 PM EDT INDICATION: 28 years Female with elevated LFTs, bilirubin TECHNIQUE: Multiplanar multisequence MR images of the abdomen were performed, including diffusion-weighted images without contrast. Thick section multi-angle and thin section multi-slice MRCP sequences were performed through the abdomen as well. Maximum intensity projection 3-D images were created with the latter data set on an independent workstation. COMPARISON: Abdominal ultrasound from 06/08/2023. Abdomen from 06/06/2023. FINDINGS: Lack of intravenous contrast material limits evaluation of the vascular and visceral structures. Liver: Diffuse hepatic steatosis. Liver is smooth in contour. Moderate periportal edema. Hepatomegaly, progressed since prior. No focal liver lesion. Biliary tree: Cholecystectomy. No significant intrahepatic or extrahepatic ductal dilatation. No evidence of choledocholithiasis. Edema in the suzette hepatis. Spleen: The spleen measures up to 17.3 cm in length. Spleen previously measured up to 13.0 cm in length. Adrenals:Normal Pancreas: There appears to be subtle edema within and adjacent to the head and uncinate process of the pancreas. No loculated peripancreatic fluid collection.. No pancreatic duct dilation. Kidneys: No definite mass or hydronephrosis Lymph nodes: Prominent periportal lymph nodes, measuring up to 14 mm in short axis dimension, increased in size since prior. Enlarged gastrohepatic ligament lymph nodes, measuring up to 15 mm in short axis dimension, increased in size since prior. Status post gastric bypass. No evidence of bowel obstruction. Vasculature: Grossly unremarkable on this noncontrast exam. No significant collaterals or esophageal varices. Visualized Osseous structures: Normal [facility] RADIOLOGY [facility] Dave, Karlene, M D - 10/31/2023 [facility] 1995 [id number] Exam Date/Time: 10/29/2023 19:34 Procedure: MR ABDOMEN WO CONTRAST Ordering Provider: SOLIS LISA Reason For Exam: elevated LFTs, bilirubin MRI ABDOMEN WITHOUT with MRCP EXAM DATE AND TIME: 10/29/2023 7:34 PM EDT INDICATION: 28 years Female with elevated LFTs, bilirubin TECHNIQUE: Multiplanar multisequence MR images of the abdomen were performed, including diffusion-weighted images without contrast. Thick section multi-angle and thin section multi-slice MRCP sequences were performed through the abdomen as well. Maximum intensity projection 3-D images were created with the latter data set on an independent workstation. COMPARISON: Abdominal ultrasound from 06/08/2023. Abdomen from 06/06/2023. FINDINGS: Lack of intravenous contrast material limits evaluation of the vascular and visceral structures. Liver: Diffuse hepatic steatosis. Liver is smooth in contour. Moderate periportal edema. Hepatomegaly, progressed since prior. No focal liver lesion. Biliary tree: Cholecystectomy. No significant intrahepatic or extrahepatic ductal dilatation. No evidence of choledocholithiasis. Edema in the suzette hepatis. Spleen: The spleen measures up to 17.3 cm in length. Spleen previously measured up to 13.0 cm in length. Adrenals:Normal Pancreas: There appears to be subtle edema within and adjacent to the head and uncinate process of the pancreas. No loculated peripancreatic fluid collection.. No pancreatic duct dilation. Kidneys: No definite mass or hydronephrosis Lymph nodes: Prominent periportal lymph nodes, measuring up to 14 mm in short axis dimension, increased in size since prior. Enlarged gastrohepatic ligament lymph nodes, measuring up to 15 mm in short axis dimension, increased in size since prior. Status post gastric bypass. No evidence of bowel obstruction. Vasculature: Grossly unremarkable on this noncontrast exam. No significant collaterals or esophageal varices. Visualized Osseous structures: Normal IMPRESSION: Marked diffuse hepatic steatosis. Hepatosplenomegaly, progressed since prior. Subtle edema within and adjacent to the head and uncinate process of the pancreas, suspicious for mild acute edematous pancreatitis. Correlate with laboratory values. New moderate periportal edema. Periportal and gastrohepatic ligament lymphadenopathy, progressed since prior. Report Dictated on Electronically Signed By: Karlene Acosta MD Electronically Signed Date/Time: 10/31/2023 5:31 PM EDT [facility] MR Abdomen WO contrastOrdere d By: Karlene Acosta on 10-31-2023 [facility] Work Phone: Manual differential performe d Ql (Bld)on 10-31-2023 Anisocytosis Ql (Bld) Slight Abnormal (none) [facility] Atypical Lymphocytes Manual 4 [facility] Band form neutrophils (Bld) [#/Vol] 0.8 10*3/uL High NINF - 0.0 10*3/uL [facility] Band form neutrophils/100 WBC (Bld) 11 % High NINF - 0 % [facility] Bands Manual 11 [facility] Cells Counted Total (Bld) [#] 100 {cells} [facility] Differential Method Manual differential performed [facility] Interpretation and review of laboratory results Abnormal [facility] Lymphocytes (Bld) [#/Vol] 3.9 10*3/uL 1.0 - 4.3 10*3/uL [facility] Lymphocytes Manual 52 [facility] Lymphocytes/100 WBC (Bld) 52 % High 15 - 45 % [facility] Metamyelocytes (Bld) [#/Vol] 0.1 10*3/uL High NINF - 0.0 10*3/uL [facility] Metamyelocytes Manual [address] [facility] Metamyelocytes/100 WBC (Bld) 1 % High NINF - 0 % [facility] Microcytes Ql (Bld) Slight Abnormal (none) [facility] Monocytes (Bld) [#/Vol] 0.9 10*3/uL 0.0 - 0.9 10*3/uL [facility] Monocytes Manual 12 [facility] alth Monocytes/100 WBC (Bld) 12 % 5 - 13 % [facility] Neutrophils (Bld) [#/Vol] 2.3 10*3/uL 1.8 - 7.5 10*3/uL [facility] Neutrophils Manual 20 [facility] Ovalocytes LM Ql (Bld) Slight Abnormal (none) [facility] Platelet morphology finding Nom (Bld) Normal [facility] Poikilocytosis LM Ql (Bld) Slight Abnormal (none) [facility] Segmented neutrophils/100 WBC (Bld) 20 % Low 38 - 82 % [facility] Smudge cells/100 WBC (Bld) Present Abnormal (none) per 100 WBCs [facility] Target cells LM Ql (Bld) Slight Abnormal (none) [facility] Variant lymphocytes (Bld) [#/Vol] 0.3 10*3/uL High NINF - 0.0 10*3/uL [facility] Variant lymphocytes/100 WBC (Bld) 4 % High NINF - 0 % [facility] WBC corrected for nucl RBC (Bld) [#/Vol] 7.5 10*3/uL 3.6 - 10.7 10*3/uL [facility] Differential perform ed on albumin slide [facility] No Panel Informationon 10-30 [facility] Progress Noteon 10-31-2023 Progress Note Normal [facility] Progress Note Normal [facility] Progress Note [facility] [id number] 2023 ALPHA 1 ANTITRYPSIN 169 mg/dL Normal 90-200 [facility] Comment on above: Result Comment: To c onvert to umol/L, multiply mg/dL by 0.185Performed By: [facility] [address] [place], [place] [address]Ixnvjawskl Director: Liborio Martinez MD, PhDCLIA Number: [id number] Performed By: #### L [id number], [id number], [id number], [id number], [id number] ####[facility] ([facility])[address] [place] [address] [facility] DANGELO (ANTINUCLEAR ANTIBODIES) on 10-30-2023 DANGELO PATTERN Nucleolar Normal [facility] Comment on above: Performed By: #### L [id number] ####Senior Sustainability Advisor: HENNY WADE ([phone])[facility] ([facility])[address] [place] [address] DANGELO TITER 1:80 High <1:80 [facility] Comment on above: Result Comment: SPENCER Miranda COMMENTS:TESTED BY INDIRECT IMMUNOFLUORESCENCE ASSAY (IFA) Performed By: #### L [id number] ####Senior Sustainability Advisor: HENNY WADE ([phone])[address] ANTIMITOCHONDRIAL ANTIBODYon 10-30-2023 ANTI-MITOCHONDRIAL AB 10.4 Units Normal 0.0-24.9 [facility] Comment on above: Result Comment: REFE RENCE INTERVAL: Mitochondrial (M2) Antibody, IgG 20.0 Units or less ......... Negative 20.1 - 24.9 Units........... Equivocal 25.0 Units or greater....... PositiveAnti-mitochondrial antibodies (AMA) are thought to be present in90-95% of patients with primary biliary cholangitis (PBC).However, the frequency of detected antibodies may be cohort orassay dependent, as lower sensitivities have been reported. Notall PBC patients are positive for AMA; some patients may bepositive for SP100 and/or GP210 antibodies. A negative result doesnot rule out PBC.Performed By: [facility] [place], [place] [address]Movrlabiwg Director: Liborio Martinez MD, PhDCLIA Number: [id number] Performed By: #### L [id number], [id number], [id number], [id number], [id number] ####[facility] ([facility])[address] [place] [address] [place] CARECOORDon 10-30-2023 [facility] MRCP reviewed, CBD looks normal. Will await the official read. Normal [facility] CBC W Auto Differential pane l (Bld)Ordered By: [place] on 10-30-2023 Erythrocyte distribution width (RBC) [Ratio] 18.2 % High 11.5 - 15.0 % [facility] Hematocrit (Bld) [Volume fraction] 33.6 % Low 35.0 - 47.0 % [facility] Hemoglobin (Bld) [Mass/Vol] 10.9 g/dL Low 11.7 - 16.0 g/dL [facility] Interpretation and review of laboratory results Abnormal [facility] IPF 4 [facility] MCH (RBC) [Entitic mass] 22.9 pg Low 26.0 - 34.0 pg [facility] MCHC (RBC) [Mass/Vol] 32.4 % 30.5 - 36.0 % [facility] MCV (RBC) [Entitic vol] 70.4 fL Low 77.0 - 99.0 fL [facility] Platelet mean volume (Bld) [Entitic vol] [facility] Comment on above: Unable to calculate Platelets (Bld) [#/Vol] 180 10*3/uL 140 - 440 10*3/uL [facility] RBC (Bld) [#/Vol] 4.77 10*6/uL 3.80 - 5.2 0 10*6/uL [facility] WBC (Bld) [#/Vol] 7.9 10*3/uL 3.6 - 10.7 10*3/uL [facility] CBC WITH AUTO DIFFERENTIALon 10-30-2023 Erythrocyte distribution width (RBC) [Ratio] 18.2 % High 11.5-15.0 [facility] Comment on above: Performed By: #### L [id number], [id number] ####Senior Sustainability Advisor: HENNY WADE ([phone])[address] Hematocrit (Bld) [Volume fraction] 33.6 % Low 35.0-47.0 [facility] Comment on above: Performed By: #### L [id number], [id number] ####Senior Sustainability Advisor: HENNY WADE ([phone])[facility])[address] [place] [address] Hemoglobin (Bld) [Mass/Vol] 10.9 g/dL Low 11.7-16.0 [facility] Comment on above: Performed By: #### L [id number], [id number] ####Senior Sustainability Advisor: HENNY WADE ([phone])[facility])[address] [place] [address] [place] IPF 4 Normal [facility] Comment on above: Performed By: #### L [id number], [id number] ####Senior Sustainability Advisor: HENNY WADE ([phone])[facility] ([facility])[address] [place] [address] MCH (RBC) [Entitic mass] 22.9 pg Low 26.0-34.0 [facility] Comment on above: Performed By: #### L [id number], [id number] ####Senior Sustainability Advisor: HENNY WADE ([phone])[facility] ([facility])[address] [place] [address] MCHC 32.4 % Normal 30.5-36.0 [facility] Comment on above: Performed By: #### L [id number], [id number] ####Senior Sustainability Advisor: HENNY WADE ([phone])[facility] ([facility])[address] [place] [address] MCV (RBC) [Entitic vol] 70.4 fL Low 77.0-99.0 S [facility] Comment on above: Performed By: #### L [id number], [id number] ####Senior Sustainability Advisor: HENNY WADE ([phone])[facility] ([facility])[address] [place] [address] MPV Normal [facility] Comment on above: Result Comment: Unab le to calculate Performed By: #### L [id number], [id number] ####Senior Sustainability Advisor: HENNY WADE ([phone])[facility] ([facility])[address] [place] [address] Platelets (Bld) [#/Vol] 180 10*3/uL Normal 140-440 [facility] Comment on above: Performed By: #### L [id number], [id number] ####Senior Sustainability Advisor: HENNY WADE ([phone])[facility] ([facility])[address] [place] [address] RBC (Bld) [#/Vol] 4.77 10*6/uL Normal 3.80-5.20 [facility] Comment on above: Performed By: #### L [id number], [id number] ####Senior Sustainability Advisor: HENNY WADE ([phone])[facility] ([facility])[address] WBC (Bld) [#/Vol] 7.9 10*3/uL Normal 3.6-10.7 [facility] Comment on above: Performed By: #### L [id number], [id number] ####Senior Sustainability Advisor: HENNY WADE ([phone])[facility] ([facility])[address] [place] [address] CERULOPLASMINon 10-30-2023 CERULOPLASMIN 25 mg/dL Normal 16-45 [facility] Comment on above: Result Comment: REFE RENCE INTERVAL: CeruloplasminAccess complete set of age- and/or gender-specific referenceintervals for this test in the [facility] Test Directory([employer]).Performed By: [facility] [place] [address]Onrojssbyd Director: Liborio Martinez MD, PhDCLIA Number: [id number] Performed By: #### L [id number], [id number], [id number], WMH614, [id number] ####[facility] ([facility])[address] [place] [id number] [place] CMV AB PANEL, IGG AND IGMon 10-30-2023 CMV AB IGM 73.9 AU/mL High <=29.9 [facility] Comment on above: Result Comment: INTE RPRETIVE INFORMATION: Cytomegalovirus Antibody, IgM 29.9 AU/mL or Less ....... Not Detected 30.0-34.9 AU/mL........... Indeterminate-Repeat testing in 10-14 days may be helpful. 35.0 AU/mL or Greater .... Detected-IgM antibody to CMV detected which may indicate a current or recent infection. However, low levels of IgM antibodies may occasionally persist for more than 12 months post-infection.A negative result does not rule out primary infection, pleasecorrelate clinically. CMV serology is not useful for theevaluation of active or reactivated infection in immunocompromisedpatients. Molecular diagnostic tests (i.e. PCR)are preferred inthese cases.This test should not be used for blood donor screening, associatedre-entry protocols, or for screening Human Cell, Tissues andCellular and Tissue-Based Products (HCT/P).Performed By: [facility] [address] [place], [place] [address]Veqckbekyw Director: Liborio Martinez MD, PhDCLIA Number: [id number] Performed By: #### L [id number], [id number] ####[facility] ([facility])[address] [place] [address] [facility] CMV AB, IGG >10.00 High <=0.70 [facility] Comment on above: Result Comment: INTE RPRETIVE INFORMATION: Cytomegalovirus Antibody, IgG 0.59 U/mL or less......... Not Detected 0.6 - 0.69 U/mL........... Indeterminate-Repeat testing in 10-14 days may be helpful. 0.70 U/mL or greater...... DetectedIn immunocompromised patients, CMV serology (IgG or IgM antibodytiters) may not be reliable and may be misleading in the diagnosisof acute or reactivation CMV disease. The preferred method fordiagnosis is culture of virus and/or demonstration of viralantigen in peripheral white cells (buffy coat), bronchoalveolarlavage (BAL) cells, or tissue biopsies.This test should not be used for blood donor screening, associatedre-entry protocols, or for screening Human Cell, Tissues andCellular and Tissue-Based Products (HCT/P).The best evidence for current infection is a significant change ontwo appropriately timed specimens, where both tests are done inthe same laboratory at the same time. Performed By: #### L [id number], [id number] ####[facility] ([facility])[address] [place] [address] [facility] COMPREHENSIVE METABOLIC PANE Chavez 10-30-2023 Albumin [Mass/Vol] 3.1 g/dL Low 3.5-5.0 [facility] Comment on above: Performed By: #### L [id number] ####Senior Sustainability Advisor: HENNY WADE ([phone])[facility] ([facility])[address] [place] [address] ALP [Catalytic activity/Vol] 670 U/L High 38-126 [facility] Comment on above: Performed By: #### L [id number] ####Senior Sustainability Advisor: HENNY WADE ([phone])[facility] ([facility])[address] [place] [address] [place] ALT [Catalytic activity/Vol] 240 U/L High 0-34 [facility] Comment on above: Performed By: #### L AB17 ####Senior Sustainability Advisor: HENNY WADE ([phone])[facility] ([facility])[address] [place] [address] Anion gap [Moles/Vol] 12 mmol/L Normal 3-13 [facility] Comment on above: Performed By: #### L AB17 ####Senior Sustainability Advisor: HENNY WADE ([phone])[facility] ([facility])[address] [place] [address] AST [Catalytic activity/Vol] 411 U/L High 15-46 [facility] Comment on above: Performed By: #### L [id number] ####Senior Sustainability Advisor: HENNY WADE ([phone])[facility] ([facility])[address] [place] [address] Bilirubin [Mass/Vol] 4.3 mg/dL High 0.2-1.3 [facility] Comment on above: Performed By: #### L AB17 ####Senior Sustainability Advisor: HENNY WDAE ([phone])[facility] ([facility])[address] [place] [address] Calcium [Mass/Vol] 8.2 mg/dL Low 8.4-10.4 [facility] Comment on above: Performed By: #### L [id number] ####Senior Sustainability Advisor: HENNY WADE ([phone])[facility] ([facility])[address] [place] [address] [place] Chloride [Moles/Vol] 102 mmol/L Normal 98-107 [facility] Comment on above: Performed By: #### L [id number] ####Senior Sustainability Advisor: HENNY WADE ([phone])[facility] ([facility])[address] [place] [address] [place] CO2 [Moles/Vol] 23 mmol/L Normal 22-30 [facility] Comment on above: Performed By: #### L AB17 ####Senior Sustainability Advisor: HENNY WADE ([phone])[facility])[address] [place] [address] Creatinine [Mass/Vol] 0.55 mg/dL Normal 0.52-1.04 [facility] Comment on above: Performed By: #### L AB17 ####Senior Sustainability Advisor: HENNY WADE ([phone])[facility])[address] [place] [address] GLOMERULAR FILTRATION RATE ML/MIN/1.73 SQ M.PREDICTED >90.0 Normal >60.0 [facility] Comment on above: Result Comment: Calc ulation based on the Chronic Kidney Disease Epidemiology Collaboration (CKD-EPI) equation refit without adjustment for race Performed By: #### L [id number] ####Senior Sustainability Advisor: HENNY WADE ([phone])[facility])[address] [place] [address] Glucose [Mass/Vol] 71 mg/dL Normal 70-100 [facility] Comment on above: Performed By: #### L [id number] ####Senior Sustainability Advisor: HENNY WADE ([phone])[facility])[address] [place] [address] Potassium [Moles/Vol] 3.5 mmol/L Normal 3.5-5.1 [facility] Comment on above: Performed By: #### L [id number] ####Senior Sustainability Advisor: HENNY WADE ([phone])[facility])[address] [place] [address] Protein [Mass/Vol] 7.0 g/dL Normal 6.3-8.2 [facility] Comment on above: Performed By: #### L [id number] ####Senior Sustainability Advisor: HENNY WADE ([phone])[facility])[address] [place] [address] Sodium [Moles/Vol] 136 mmol/L Normal 135-145 [facility] Comment on above: Performed By: #### L [id number] ####Senior Sustainability Advisor: HENNY WADE ([phone])[facility] ([facility])[address] [place] [address] Urea nitrogen [Mass/Vol] 4 mg/dL Low 7-17 [facility] Comment on above: Performed By: #### L [id number] ####Senior Sustainability Advisor: HENNY WADE ([phone])[facility] ([facility])[address] [place] [address] Comprehensive metabolic 1998 panelon 10-30-2023 Albumin [Mass/Vol] 3.1 g/dL Low 3.5 - 5.0 g/dL [facility] ALP [Catalytic activity/Vol] 670 U/L High 38 - 126 U/L [facility] ALT [Catalytic activity/Vol] 240 U/L High 0 - 34 U/L [facility] Anion gap [Moles/Vol] 12 mmol/L 3 - 13 mmol/L [facility] AST [Catalytic activity/Vol] 411 U/L High 15 - 46 U/L [facility] Bilirubin [Mass/Vol] 4.3 mg/dL High 0.2 - 1 .3 mg/dL [facility] Calcium [Mass/Vol] 8.2 mg/dL Low 8.4 - 10. 4 mg/dL [facility] Chloride [Moles/Vol] 102 mmol/L 98 - 10 7 mmol/L [facility] CO2 [Moles/Vol] 23 mmol/L 22 - 30 mmol/L [facility] Creatinine [Mass/Vol] 0.55 mg/dL 0.52 - 1.04 mg/dL [facility] GFR/1.73 sq M.predicted (S/P/Bld) [Vol rate/Area] - PINF [facility] Comment on above: Calculation based on the Chronic Kidney Disease Epidemiology Collaboration (CKD-EPI) equation refit without adjustment for race Glucose [Mass/Vol] 71 mg/dL 70 - 100 mg/dL [facility] Interpretation and review of laboratory results Abnormal [facility] Potassium [Moles/Vol] 3.5 mmol/L 3.5 - 5.1 mmol/L [facility] Protein [Mass/Vol] 7.0 g/dL 6.3 - 8.2 g/dL [facility] Sodium [Moles/Vol] 136 mmol/L 135 - 145 mmol/L [facility] Urea nitrogen [Mass/Vol] 4 mg/dL Low 7 - 17 mg/dL [facility] HEPATITIS B CORE ANTIBODY, T BILLYLon 10-30-2023 HEP B CORE AB,TOTAL Negative Normal Negative [facility] Comment on above: Result Comment: INTE RPRETIVE INFORMATION: Hepatitis B Core Ab (Total)This assay should not be used for blood donor screening,associated re-entry protocols, or for screening Human Cells,Tissues and Cellular and Tissue-Based Products (HCT/P).Performed By: [facility] [place], [place] [address]Laboratory Director: Liborio Martinez MD, PhDCLIA Number: [id number] Performed By: #### L [id number], [id number], [id number], [id number], [id number] ####[facility] ([facility])[address] [place] [address] HSV SUBTYPE BY PCR (BKR QUES T)on 10-30-2023 HSV 1 SUBTYPE BY PCR Not detected Normal [facility] Comment on above: Performed By: #### L [id number] ####[facility] ([facility])[address] [place] [address] HSV 2 SUBTYPE BY PCR Not detected Normal [facility] Comment on above: Result Comment: INTE RPRETIVE INFORMATION: HSV-1 and HSV-2 Subtype by PCRA negative result does not rule out the presence of PCR inhibitorsin the patient specimen or test-specific nucleic acid inconcentrations below the level of detection by this test.This test was developed and its performance characteristicsdetermined by [facility]. It has not been cleared orapproved by the [place] Food and Drug Administration. This test wasperformed in a CLIA certified laboratory and is intended forclinical purposes.Performed By: [facility] [place], [place] [address]Laboratory Director: Liborio Martinez MD, PhDCLIA Number: [id number] Performed By: #### L [id number] ####[facility] ([facility])[address] [place] [address] HSV SUBTYPE SOURCE Serum Normal [facility] Comment on above: Performed By: #### L [id number] ####[facility] ([facility])[address] [place] [address] [place] IGGon 10-30-2023 IGG, BLOOD 2182.1 mg/dL High 700.0-1600.0 [facility] Comment on above: Performed By: #### L [id number] ####Senior Sustainability Advisor: HENNY WADE ([phone])[facility] [place] [address] [place] IGG 1, 2, 3, AND 4on 024 IGG SUBCLASS 1 1387 mg/dL High 240-1118 [facility] Comment on above: Result Comment: REFE RENCE INTERVAL: Immunoglobulin G Subclass 1The total IgG (mg/dL) can be derived from the sum of the subclassIgG1, IgG2, IgG3, and IgG4 values. However, a confirmatory andmore precise total IgG is available by the turbidimetric method ofquantitation for total IgG. Refer to test Immunoglobulin G, Serum(9070019).Access complete set of age- and/or gender-specific referenceintervals for this test in the [facility] Test Directory([employer]). Performed By: #### L [id number], [id number] ####[facility] ([facility])[address] [place] [address] [facility] IGG SUBCLASS 2 281 mg/dL Normal 124-549 [facility] Comment on above: Result Comment: REFE RENCE INTERVAL: Immunoglobulin G Subclass 2Access complete set of age- and/or gender-specific referenceintervals for this test in the [facility] Test Directory([employer]). Performed By: #### L [id number], [id number] ####[facility] ([facility])[address] [place] [address] [facility] IGG SUBCLASS 3 >219 High 21-134 [facility] Comment on above: Result Comment: REFE RENCE INTERVAL: Immunoglobulin G Subclass 3Access complete set of age- and/or gender-specific referenceintervals for this test in the [facility] Test Directory([employer]). Performed By: #### L [id number], [id number] ####[facility] ([facility])[address] [place] [address] [facility] IGG SUBCLASS 4 73 mg/dL Normal 1-123 [facility] Comment on above: Result Comment: REFE RENCE INTERVAL: Immunoglobulin G Subclass 4Access complete set of age- and/or gender-specific referenceintervals for this test in the [employer] Test Directory([employer]).Performed By: [facility] [place], [place] [address]Umtoksrzqv Director: Liborio Martinez MD, PhDCLIA Number: [id number] Performed By: #### L IL1126, [id number] ####[employer] ([facility])[address] [place] [address] [facility] IGMon 10-30-2023 IGM, BLOOD 222.4 mg/dL Normal 40.0-230.0 [facility] Comment on above: Performed By: #### L AB72 ####Senior Sustainability Advisor: HENNY WADE ([phone])[address] IgG [Mass/Vol]on 10-30-2023 Interpretation and review of laboratory results Abnormal [facility] LIVER-KIDNEY MICROSOME 1 ABo n 10-30-2023 LIVER-KID MICROSOME-1 AB, IGG BY ANNABELLE 1.9 U Normal 0.0-24.9 [facility] Comment on above: Result Comment: REFE RENCE INTERVAL: Liver-Kidney Microsome-1 Antibody, IgG by ANNABELLE 0.0 - 20.0 U .............. Negative 20.1 - 24.9 U ............. Equivocal 25.0 U or Greater ......... PositiveA positive result indicates the presence of IgG antibodies torecombinant human P450 2D6 and suggests the possibility ofautoimmune hepatitis, type 2. A negative LKM-1 does not rule outthe presence of autoimmune hepatitis, type 2.Performed By: [facility] [address] [place], [place] [address]Viduszwlzx Director: Liborio Martinez MD, PhDCLIA Number: [id number] Performed By: #### L [id number], [id number], CIO146, DHA540, JTT801 ####[facility] ([facility])[address] [place] [address] [place] Laboratory - Chemistry and C hemistry - challengeon 10-30-2023 IgG [Mass/Vol] 2182.1 mg/dL High 700.0 - 1600.0 mg/dL [facility] IgM [Mass/Vol] 222.4 mg/dL 40.0 - 230.0 mg/dL [facility] MANUAL DIFFERENTIALon 2023 ANISOCYTOSIS PRESENCE IN BLOOD BY LIGHT MICROSCOPY Slight Abnormal (none) [facility] Comment on above: Performed By: #### L [id number], [id number] ####Senior Sustainability Advisor: HENNY WADE ([phone])[facility])[address] [place] [address] BAND NEUTROPHILS TOTAL PER COUNTED LEUKOCYTES BY MANUAL COUNT 5 Normal [facility] Comment on above: Result Comment: SPENCER Miranda COMMENTS:Differential performed on albumin slide. Performed By: #### L [id number], [id number] ####Senior Sustainability Advisor: HENNY WADE ([phone])[facility] ([facility])[address] [place] [address] BANDS 0.4 10*3/uL High <=0.0 [facility] Comment on above: Performed By: #### L [id number], [id number] ####Senior Sustainability Advisor: HENNY WADE ([phone])[facility])[address] [place] [address] CELLS COUNTED TOTAL (#) IN BLOOD 100 Normal [facility] Comment on above: Performed By: #### L [id number], QVA1491 ####Senior Sustainability Advisor: HENNY WADE ([phone])[facility] ([facility])[address] [place] [address] LEUKOCYTE MORPHOLOGY FINDING IN BLOOD Normal Normal [facility] Comment on above: Performed By: #### L RZ5329, [id number] ####Senior Sustainability Advisor: HENNY WADE ([phone])[facility])[address] [place] [address] LEUKOCYTES (10*3/UL) NUCLEATED ERYTHROCYTE ADJUST 7.9 10*3/uL Normal 3.6-10.7 [facility] Comment on above: Performed By: #### L [id number], [id number] ####Senior Sustainability Advisor: HENNY WADE ([phone])[facility])[address] [place] [address] LYMPHOCYTES (10*3/UL) IN BLOOD BY MANUAL COUNT 5.0 10*3/uL High 1.0-4.3 [facility] Comment on above: Performed By: #### L [id number], [id number] ####Senior Sustainability Advisor: HENNY WADE ([phone])[facility])[address] [place] [address] LYMPHOCYTES TOTAL PER COUNTED LEUKOCYTES BY MANUAL COUNT 63 Normal [facility] Comment on above: Performed By: #### L XO7127, [id number] ####Senior Sustainability Advisor: HENNY WADE ([phone])[facility])[address] [place] [address] [place] LYMPHOCYTES/100 LEUKOCYTES IN BLOOD BY MANUAL COUNT 63 % High 15-45 [facility] Comment on above: Performed By: #### L [id number], QPH1401 ####Senior Sustainability Advisor: HENNY WADE ([phone])[facility])[address] [place] [address] [place] MACROCYTES (PRESENCE) IN BLOOD BY LIGHT MICROSCOPY Rare Abnormal (none) [facility] Comment on above: Performed By: #### L CH1608, [id number] ####Senior Sustainability Advisor: HENNY WADE ([phone])[facility])[address] [place] [address] [place] MICROCYTES (PRESENCE) IN BLOOD BY LIGHT MICROSCOPY Slight Abnormal (none) [facility] Comment on above: Performed By: #### L [id number], [id number] ####Senior Sustainability Advisor: HENNY WADE ([phone])[facility] ([facility])[address] [place] [address] [place] MONOCYTES (10*3/UL) IN BLOOD BY MANUAL COUNT 0.7 10*3/uL Normal 0.0-0.9 [facility] Comment on above: Performed By: #### L ZV8348, [id number] ####Senior Sustainability Advisor: HENNY WADE ([phone])[facility] ([facility])[address] [place] [address] [place] MONOCYTES TOTAL PER COUNTED LEUKOCYTES BY MANUAL COUNT 9 Normal [facility] Comment on above: Performed By: #### L [id number], [id number] ####Senior Sustainability Advisor: HENNY WADE ([phone])[facility] ([facility])[address] [place] [address] [place] MONOCYTES/100 LEUKOCYTES IN BLOOD BY MANUAL COUNT 9 % Normal 5-13 [facility] Comment on above: Performed By: #### Barrett [id number], [id number] ####Senior Sustainability Advisor: HENNY WADE ([phone])[facility] ([facility])[address] [place] [address] [place] NEUTROPHILS (SEGS+BANDS) (10*3/UL) BY MANUAL COUNT 2.2 10*3/uL Normal 1.8-7.0 [facility] Comment on above: Performed By: #### Barrett LY5389, [id number] ####Senior Sustainability Advisor: HENNY WADE ([phone])[facility] ([facility])[address] [place] [address] [place] NEUTROPHILS BAND FORM/100 LEUKOCYTES IN BLOOD BY MANUAL COUNT 5 % High <=0 [facility] Comment on above: Performed By: #### L [id number], [id number] ####Senior Sustainability Advisor: HENNY WADE ([phone])[facility] ([facility])[address] [place] [address] [place] NEUTROPHILS TOTAL PER COUNTED LEUKOCYTES BY MANUAL COUNT 23 Normal [facility] Comment on above: Performed By: #### L [id number], [id number] ####Senior Sustainability Advisor: HENNY WADE ([phone])[facility] ([facility])[address] [place] [address] OVALOCYTES PRESENCE IN BLOOD BY LIGHT MICROSCOPY Slight Abnormal (none) [facility] Comment on above: Performed By: #### L [id number], [id number] ####Senior Sustainability Advisor: HENNY WADE ([phone])[facility] ([facility])[address] [place] [address] PLATELET MORPHOLOGY IN BLOOD Normal Normal [facility] Comment on above: Performed By: #### L GV3220, [id number] ####Senior Sustainability Advisor: HENNY WADE ([phone])[facility] ([facility])[address] [place] [address] POIKILOCYTOSIS (PRESENCE) IN BLOOD BY LIGHT MICROSCOPY Slight Abnormal (none) [facility] Comment on above: Performed By: #### L [id number], YAP0175 ####Senior Sustainability Advisor: HENNY WADE ([phone])[facility] ([facility])[address] [place] [address] POLYCHROMASIA IN BLOOD BY LIGHT MICROSCOPY Slight Abnormal (none) [facility] Comment on above: Performed By: #### L [id number], [id number] ####Senior Sustainability Advisor: HENNY WADE ([phone])[facility] ([facility])[address] [place] [address] [place] SEGEMENTED NEUTROPHILS/100 LEUKOCYTES BY MANUAL COUNT 23 % Low 38-82 [facility] Comment on above: Performed By: #### L [id number], [id number] ####Senior Sustainability Advisor: HENNY WADE ([phone])[facility] ([facility])[address] [place] [address] [place] SEGMENTED NEUTROPHILS (10*3/UL)IN BLOOD BY MANUAL COUNT 2.2 10*3/uL Normal 1.8-7.5 [facility] Comment on above: Performed By: #### L WH1985, [id number] ####Senior Sustainability Advisor: HENNY WADE ([phone])[facility] ([facility])[address] [place] [address] TARGET CELLS IN BLOOD BY LIGHT MICROSCOPY Slight Abnormal (none) [facility] Comment on above: Performed By: #### L [id number], [id number] ####Senior Sustainability Advisor: HENNY WADE ([phone])[facility])[address] [place] [address] Manual differential performe d Ql (Bld)Ordered By: Dia Sam on 10-30-2023 Anisocytosis Ql (Bld) Slight Abnormal (none) [facility] Band form neutrophils (Bld) [#/Vol] 0.4 10*3/uL High NINF - 0.0 10*3/uL [facility] Band form neutrophils/100 WBC (Bld) 5 % High NINF - 0 % [facility] Bands Manual 5 [facility] Cells Counted Total (Bld) [#] 100 {cells} [facility] Interpretation and review of laboratory results Abnormal [facility] Leukocyte morphology finding Nom (Bld) Normal [facility] Lymphocytes (Bld) [#/Vol] 5.0 10*3/uL High 1.0 - 4.3 10*3/uL [facility] Lymphocytes Manual 63 [facility] Lymphocytes/100 WBC (Bld) 63 % High 15 - 45 % [facility] Macrocytes Ql (Bld) Rare Abnormal (none) [facility] Microcytes Ql (Bld) Slight Abnormal (none) [facility] Monocytes (Bld) [#/Vol] 0.7 10*3/uL 0.0 - 0.9 10*3/uL [facility] Monocytes Manual 9 [facility] alth Monocytes/100 WBC (Bld) 9 % 5 - 13 % [facility] Neutrophils (Bld) [#/Vol] 2.2 10*3/uL 1.8 - 7.5 10*3/uL [facility] Neutrophils Manual 23 [facility] Ovalocytes LM Ql (Bld) Slight Abnormal (none) [facility] Platelet morphology finding Nom (Bld) Normal [facility] Poikilocytosis LM Ql (Bld) Slight Abnormal (none) [facility] Polychromasia LM Ql (Bld) Slight Abnormal (none) [facility] Segmented neutrophils/100 WBC (Bld) 23 % Low 38 - 82 % [facility] Target cells LM Ql (Bld) Slight Abnormal (none) [facility] WBC corrected for nucl RBC (Bld) [#/Vol] 7.9 10*3/uL 3.6 - 10.7 10*3/uL [facility] Differential perform ed on albumin slide. [facility] No Panel Informationon 10-29 Interpretation and review of laboratory results Normal [facility] Progress Noteon 10-30-2023 Progress Note Normal [facility] Progress Note Nutrition rescreen completed. Chart reviewed. Patient to be monitored and followed by the diet compounding technician. Dietitian available upon request. Normal [facility] Progress Note Normal [facility] SMOOTH MUSCLE ANTIBODY WITH REFLEX (BKR QUEST)on 10-30-2023 [employer] SMOOTH MUSCLE AB SCREEN Negative Normal NEGATIVE [facility] Comment on above: Result Comment: Test performed by [facility] [address] [place] [id number] [employer] Director: Aissatou Avery MD,PHD,MBATest Reported by [facility] CenterMysteryD Hubert,[address] [place] [id number] Seth M.D., Ph.D., Director of [phone], CLIA [id number] Performed By: #### L [id number] ####BERD (AMDBEAKER)[address] [place] [address] [facility] VITAMIN B1, WHOLE BLOOD (BKR QUEST)on 10-30-2023 [employer] VITAMIN B1 (THIAMINE), BLOOD, LC/MS/MS 171 nmol/L Normal 78-185 [facility] Comment on above: Result Comment: Precious min supplementation within 24 hours prior toblood draw may affect the accuracy of the results.This test was developed and its analytical performancecharacteristics have been determined by [employer] [place], [place]. It hasnot been cleared or approved by the U.S. Food and DrugAdministration. This assay has been validated pursuantto the CLIA regulations and is used for clinicalpurposes.Test Performed by [facility]edra[facility]steryD Hubert,[address] [place] [id number] Seth M.D., Ph.D., Director of [phone], [place] [id number] Performed By: #### L [id number] ####[facility] (AMDBEAKER)[address] [place], [place] 36on 10-29-2023 36 Noted, thanks Normal [facility] 36 Normal [facility] CARECOORDon 10-29-2023 CARECOORD Normal [facility] CBC W Auto Differential pane l (Bld)Ordered By: Sushant Barker on 10-29-2023 Erythrocyte distribution width (RBC) [Ratio] 18.3 % High 11.5 - 15.0 % [facility] Hematocrit (Bld) [Volume fraction] 34.0 % Low 35.0 - 47.0 % [facility] Hemoglobin (Bld) [Mass/Vol] 11.0 g/dL Low 11.7 - 16.0 g/dL [facility] Interpretation and review of laboratory results Abnormal [facility] IPF 5 [facility] MCH (RBC) [Entitic mass] 22.6 pg Low 26.0 - 34.0 pg [facility] MCHC (RBC) [Mass/Vol] 32.4 % 30.5 - 36.0 % [facility] MCV (RBC) [Entitic vol] 69.8 fL Low 77.0 - 99.0 fL [facility] Platelet mean volume (Bld) [Entitic vol] [facility] Comment on above: Unable to calculate result. Platelets (Bld) [#/Vol] 153 10*3/uL 140 - 440 10*3/uL [facility] RBC (Bld) [#/Vol] 4.87 10*6/uL 3.80 - 5.2 0 10*6/uL [facility] WBC (Bld) [#/Vol] 7.5 10*3/uL 3.6 - 10.7 10*3/uL [facility] CBC WITH AUTO DIFFERENTIALon 10-29-2023 Erythrocyte distribution width (RBC) [Ratio] 18.3 % High 11.5-15.0 [facility] Comment on above: Performed By: #### L [id number], [id number] ####Senior Sustainability Advisor: HENNY WADE ([phone])[facility])[address] [place] [address] Hematocrit (Bld) [Volume fraction] 34.0 % Low 35.0-47.0 [facility] Comment on above: Performed By: #### L YQ8101, [id number] ####Senior Sustainability Advisor: HENNY WADE ([phone])[facility])[address] [place] [address] Hemoglobin (Bld) [Mass/Vol] 11.0 g/dL Low 11.7-16.0 [facility] Comment on above: Performed By: #### L [id number], [id number] ####Senior Sustainability Advisor: HENNY WADE ([phone])[facility])[address] [place] [address] [place] IPF 5 Normal [facility] Comment on above: Performed By: #### L [id number], ANY4563 ####Senior Sustainability Advisor: HENNY WADE ([phone])[facility])[address] [place] [address] MCH (RBC) [Entitic mass] 22.6 pg Low 26.0-34.0 [facility] Comment on above: Performed By: #### L QH9816, [id number] ####Senior Sustainability Advisor: HENNY WADE ([phone])[facility])[address] [place] [address] MCHC 32.4 % Normal 30.5-36.0 [facility] Comment on above: Performed By: #### L AQ0390, NYW1388 ####Senior Sustainability Advisor: HENNY WADE ([phone])[facility])[address] [place] [address] MCV (RBC) [Entitic vol] 69.8 fL Low 77.0-99.0 S [facility] Comment on above: Performed By: #### L [id number], [id number] ####Senior Sustainability Advisor: HENNY WADE ([phone])[facility])[address] [place] [address] [place] MPV Normal [facility] Comment on above: Result Comment: Unab le to calculate result. Performed By: #### L [id number], UEA5963 ####Senior Sustainability Advisor: HENNY WADE ([phone])[facility] ([facility])[address] [place] [address] Platelets (Bld) [#/Vol] 153 10*3/uL Normal 140-440 [facility] Comment on above: Performed By: #### L JX4087, [id number] ####Senior Sustainability Advisor: HENNY WADE ([phone])[facility] ([facility])[address] [place] [address] RBC (Bld) [#/Vol] 4.87 10*6/uL Normal 3.80-5.20 [facility] Comment on above: Performed By: #### L WM2715, YVC8519 ####Senior Sustainability Advisor: HENNY WADE ([phone])[facility] ([facility])[address] [place] [address] WBC (Bld) [#/Vol] 7.5 10*3/uL Normal 3.6-10.7 [facility] Comment on above: Performed By: #### L YL6847, [id number] ####Senior Sustainability Advisor: HENNY WADE ([phone])[facility])[address] [place] [address] COMPREHENSIVE METABOLIC PANE Chavez 10-29-2023 Albumin [Mass/Vol] 2.8 g/dL Low 3.5-5.0 [facility] Comment on above: Performed By: #### L AB68, LAB67, LKZ099, LAB17 ####Senior Sustainability Advisor: HENNY WADE ([phone])[facility])[address] [place] [address] ALP [Catalytic activity/Vol] 597 U/L High 38-126 [facility] Comment on above: Performed By: #### L AB68, LAB67, VQI972, LAB17 ####Senior Sustainability Advisor: HENNY WADE ([phone])[facility])[address] [place] [address] [place] ALT [Catalytic activity/Vol] 229 U/L High 0-34 [facility] Comment on above: Performed By: #### L AB68, LAB67, PBT213, LAB17 ####Senior Sustainability Advisor: HENNY WADE ([phone])[facility] ([facility])[address] [place] [address] Anion gap [Moles/Vol] 10 mmol/L Normal 3-13 [facility] Comment on above: Performed By: #### L AB68, LAB67, FYE611, LAB17 ####Senior Sustainability Advisor: HENNY WADE ([phone])[facility] ([facility])[address] [place] [address] AST [Catalytic activity/Vol] 377 U/L High 15-46 [facility] Comment on above: Performed By: #### L AB68, LAB67, KXZ891, LAB17 ####Senior Sustainability Advisor: HENNY WADE ([phone])[facility] ([facility])[address] [place] [address] Bilirubin [Mass/Vol] 3.6 mg/dL High 0.2-1.3 [facility] Comment on above: Performed By: #### L AB68, LAB67, IIT570, LAB17 ####Senior Sustainability Advisor: HENNY WADE ([phone])[facility])[address] [place] [address] Calcium [Mass/Vol] 8.2 mg/dL Low 8.4-10.4 [facility] Comment on above: Performed By: #### L AB68, LAB67, QLE869, LAB17 ####Senior Sustainability Advisor: HENNY WADE ([phone])[facility])[address] [place] [address] Chloride [Moles/Vol] 101 mmol/L Normal 98-107 [facility] Comment on above: Performed By: #### L AB68, LAB67, ZBB940, LAB17 ####Senior Sustainability Advisor: HENNY WADE ([phone])[facility])[address] [place] [address] CO2 [Moles/Vol] 23 mmol/L Normal 22-30 [facility] Comment on above: Performed By: #### L AB68, LAB67, FXX682, LAB17 ####Senior Sustainability Advisor: HENNY WADE ([phone])[facility])[address] [place] [address] Creatinine [Mass/Vol] 0.54 mg/dL Normal 0.52-1.04 [facility] Comment on above: Performed By: #### L AB68, LAB67, BWO958, LAB17 ####Senior Sustainability Advisor: HENNY WADE ([phone])[facility])[address] [place] [address] GLOMERULAR FILTRATION RATE ML/MIN/1.73 SQ M.PREDICTED >90.0 Normal >60.0 [facility] Comment on above: Result Comment: Calc ulation based on the Chronic Kidney Disease Epidemiology Collaboration (CKD-EPI) equation refit without adjustment for race Performed By: #### L AB68, LAB67, BSU296, LAB17 ####Senior Sustainability Advisor: HENNY WADE ([phone])[facility] ([facility])[address] [place] [address] Glucose [Mass/Vol] 77 mg/dL Normal 70-100 [facility] Comment on above: Performed By: #### L AB68, LAB67, CBZ748, LAB17 ####Senior Sustainability Advisor: HENNY WADE ([phone])[facility])[address] [place] [address] Potassium [Moles/Vol] 3.3 mmol/L Low 3.5-5.1 [facility] Comment on above: Performed By: #### L AB68, LAB67, ZWJ917, LAB17 ####Senior Sustainability Advisor: HNENY WADE ([phone])[facility])[address] [place] [address] Protein [Mass/Vol] 6.2 g/dL Low 6.3-8.2 [facility] Comment on above: Performed By: #### L AB68, LAB67, VNP008, LAB17 ####Senior Sustainability Advisor: HENNY WADE ([phone])[facility] ([facility])[address] [place] [address] Sodium [Moles/Vol] 134 mmol/L Low 135-145 [facility] Comment on above: Performed By: #### L AB68, LAB67, VKW601, LAB17 ####Senior Sustainability Advisor: HENNY WADE ([phone])[facility] ([facility])[address] [place] [address] Urea nitrogen [Mass/Vol] 5 mg/dL Low 7-17 [facility] Comment on above: Performed By: #### L AB68, LAB67, XFD508, LAB17 ####Senior Sustainability Advisor: HENNY WADE ([phone])[facility] ([facility])[address] [place] [address] Cobalamin (Vitamin B12) [Mas s/Vol]on 10-29-2023 Interpretation and review of laboratory results Normal [facility] Comprehensive metabolic 1998 panelon 10-29-2023 Albumin [Mass/Vol] 2.8 g/dL Low 3.5 - 5.0 g/dL [facility] ALP [Catalytic activity/Vol] 597 U/L High 38 - 126 U/L [facility] ALT [Catalytic activity/Vol] 229 U/L High 0 - 34 U/L [facility] Anion gap [Moles/Vol] 10 mmol/L 3 - 13 mmol/L [facility] AST [Catalytic activity/Vol] 377 U/L High 15 - 46 U/L [facility] Bilirubin [Mass/Vol] 3.6 mg/dL High 0.2 - 1 .3 mg/dL [facility] Calcium [Mass/Vol] 8.2 mg/dL Low 8.4 - 10. 4 mg/dL [facility] Chloride [Moles/Vol] 101 mmol/L 98 - 10 7 mmol/L [facility] CO2 [Moles/Vol] 23 mmol/L 22 - 30 mmol/L [facility] Creatinine [Mass/Vol] 0.54 mg/dL 0.52 - 1.04 mg/dL [facility] GFR/1.73 sq M.predicted (S/P/Bld) [Vol rate/Area] - PINF [facility] Comment on above: Calculation based on the Chronic Kidney Disease Epidemiology Collaboration (CKD-EPI) equation refit without adjustment for race Glucose [Mass/Vol] 77 mg/dL 70 - 100 mg/dL [facility] Interpretation and review of laboratory results Abnormal [facility] Potassium [Moles/Vol] 3.3 mmol/L Low 3.5 - 5.1 mmol/L [facility] Protein [Mass/Vol] 6.2 g/dL Low 6.3 - 8.2 g/dL [facility] Sodium [Moles/Vol] 134 mmol/L Low 135 - 145 mmol/L [facility] Urea nitrogen [Mass/Vol] 5 mg/dL Low 7 - 17 mg/dL [facility] Consulton 10-29-2023 Consult Normal [facility] Consult Normal [facility] FERRITINon 10-29-2023 Ferritin [Mass/Vol] 161 ng/mL High 6-137 [facility] Comment on above: Performed By: #### L AB68, LAB67, [id number], LAB17 ####Senior Sustainability Advisor: HENNY WADE ([phone])[facility])[address] [place] [address] Ferritin [Mass/Vol]on 2023 Interpretation and review of laboratory results Abnormal [facility] Laboratory - Chemistry and C hemistry - challengeon 10-29-2023 Ferritin [Mass/Vol] 161 ng/mL High 6 - 137 ng/mL [facility] Cobalamin (Vitamin B12) [Mass/Vol] 713 pg/mL 239 - 931 pg/mL [facility] Magnesium [Mass/Vol] 1.6 mg/dL 1.6 - 2 .3 mg/dL [facility] MAGNESIUMon 10-29-2023 Magnesium [Mass/Vol] 1.6 mg/dL Normal 1.6-2.3 [facility] Comment on above: Performed By: #### L AB68, LAB67, [id number], LAB17 ####Senior Sustainability Advisor: HENNY WADE ([phone])[facility] ([facility])[address] [place] [address] [place] MANUAL DIFFERENTIALon 2023 ANISOCYTOSIS PRESENCE IN BLOOD BY LIGHT MICROSCOPY Slight Abnormal (none) [facility] Comment on above: Performed By: #### L [id number], [id number] ####Senior Sustainability Advisor: HENNY WADE ([phone])[facility] ([facility])[address] [place] [address] BASOPHILS (10*3/UL) IN BLOOD BY MANUAL COUNT 0.1 10*3/uL Normal 0.0-0.2 [facility] Comment on above: Performed By: #### L [id number], [id number] ####Senior Sustainability Advisor: HENNY WADE ([phone])[facility] ([facility])[address] [place] [address] BASOPHILS TOTAL PER COUNTED LEUKOCYTES BY MANUAL COUNT 1 Normal [facility] Comment on above: Performed By: #### L [id number], [id number] ####Senior Sustainability Advisor: HENNY WADE ([phone])[facility] ([facility])[address] [place] [address] [place] BASOPHILS/100 LEUKOCYTES IN BLOOD BY MANUAL COUNT 1 % Normal 0-2 [facility] Comment on above: Performed By: #### L [id number], [id number] ####Senior Sustainability Advisor: HENNY WADE ([phone])[facility])[address] [place] [address] CELLS COUNTED TOTAL (#) IN BLOOD 100 Normal [facility] Comment on above: Performed By: #### L [id number], [id number] ####Senior Sustainability Advisor: HENNY WADE ([phone])[facility] ([facility])[address] [place] [address] DIFFERENTIAL METHOD Manual differential performed Normal [facility] Comment on above: Result Comment: ORDE R COMMENTS:Differential performed on albumin slide. Performed By: #### L [id number], [id number] ####Senior Sustainability Advisor: HENNY WADE ([phone])[facility])[address] [place] [address] [place] LEUKOCYTES (10*3/UL) NUCLEATED ERYTHROCYTE ADJUST 7.5 10*3/uL Normal 3.6-10.7 [facility] Comment on above: Performed By: #### L [id number], [id number] ####Senior Sustainability Advisor: HENNY WADE ([phone])[facility] ([facility])[address] [place] [address] [place] LYMPHOCYTES (10*3/UL) IN BLOOD BY MANUAL COUNT 5.7 10*3/uL High 1.0-4.3 [facility] Comment on above: Performed By: #### L [id number], [id number] ####Senior Sustainability Advisor: HENNY WADE ([phone])[facility] ([facility])[address] [place] [address] [place] LYMPHOCYTES TOTAL PER COUNTED LEUKOCYTES BY MANUAL COUNT 76 Normal [facility] Comment on above: Performed By: #### L [id number], [id number] ####Senior Sustainability Advisor: HENNY WADE ([phone])[facility] ([facility])[address] [place] [address] [place] LYMPHOCYTES/100 LEUKOCYTES IN BLOOD BY MANUAL COUNT 76 % High 15-45 [facility] Comment on above: Performed By: #### L [id number], [id number] ####Senior Sustainability Advisor: HENNY WADE ([phone])[facility] ([facility])[address] [place] [address] [place] MICROCYTES (PRESENCE) IN BLOOD BY LIGHT MICROSCOPY Slight Abnormal (none) [facility] Comment on above: Performed By: #### L [id number], [id number] ####Senior Sustainability Advisor: HENNY WADE ([phone])[facility] ([facility])[address] [place] [address] [place] MONOCYTES (10*3/UL) IN BLOOD BY MANUAL COUNT 0.4 10*3/uL Normal 0.0-0.9 [facility] Comment on above: Performed By: #### L [id number], [id number] ####Senior Sustainability Advisor: HENNY WADE ([phone])[facility] ([facility])[address] [place] [address] [place] MONOCYTES TOTAL PER COUNTED LEUKOCYTES BY MANUAL COUNT 5 Normal [facility] Comment on above: Performed By: #### L [id number], [id number] ####Senior Sustainability Advisor: HENNY WADE ([phone])[facility] ([facility])[address] [place] [address] [place] MONOCYTES/100 LEUKOCYTES IN BLOOD BY MANUAL COUNT 5 % Normal 5-13 [facility] Comment on above: Performed By: #### L [id number], [id number] ####Senior Sustainability Advisor: HENNY WADE ([phone])[facility] ([facility])[address] [place] [address] [place] NEUTROPHILS (SEGS+BANDS) (10*3/UL) BY MANUAL COUNT 1.4 10*3/uL Low 1.8-7.0 [facility] Comment on above: Performed By: #### L [id number], [id number] ####Senior Sustainability Advisor: HENNY WADE ([phone])[facility] ([facility])[address] [place] [address] NEUTROPHILS TOTAL PER COUNTED LEUKOCYTES BY MANUAL COUNT 18 Normal [facility] Comment on above: Performed By: #### L [id number], [id number] ####Senior Sustainability Advisor: HENNY WADE ([phone])[facility] ([facility])[address] [place] [address] [place] OVALOCYTES PRESENCE IN BLOOD BY LIGHT MICROSCOPY Slight Abnormal (none) [facility] Comment on above: Performed By: #### L [id number], [id number] ####Senior Sustainability Advisor: HENNY WADE ([phone])[facility] ([facility])[address] [place] [address] [place] PLATELET MORPHOLOGY IN BLOOD Normal Normal [facility] Comment on above: Performed By: #### L [id number], [id number] ####Senior Sustainability Advisor: HENNY WADE ([phone])[facility] ([facility])[address] [place] [address] [place] POIKILOCYTOSIS (PRESENCE) IN BLOOD BY LIGHT MICROSCOPY Slight Abnormal (none) [facility] Comment on above: Performed By: #### L [id number], [id number] ####Senior Sustainability Advisor: HENNY WADE ([phone])[facility] ([facility])[address] [place] [address] [place] SEGEMENTED NEUTROPHILS/100 LEUKOCYTES BY MANUAL COUNT 18 % Low 38-82 [facility] Comment on above: Performed By: #### L [id number], [id number] ####Senior Sustainability Advisor: HENNY WADE ([phone])[facility] ([facility])[address] [place] [address] SMUDGE CELLS PRESENCE IN BLOOD BY LIGHT MICROSCOPY Present Abnormal (none) [facility] Comment on above: Performed By: #### L [id number], [id number] ####Senior Sustainability Advisor: HENNY WADE ([phone])[facility] ([facility])[address] [place] [address] MR Abdomen WO contraston Radiology Study observation (narrative) [facility] Magnesium [Mass/Vol]on 10-28 Interpretation and review of laboratory results Normal [facility] Manual differential performe d Ql (Bld)Ordered By: Odette Ott on 10-29-2023 Anisocytosis Ql (Bld) Slight Abnormal (none) [facility] Basophils (Bld) [#/Vol] 0.1 10*3/uL 0.0 - 0.2 10*3/uL [facility] Basophils Manual 1 [facility] Basophils/100 WBC (Bld) 1 % 0 - 2 % [facility] Cells Counted Total (Bld) [#] 100 {cells} [facility] Differential Method Manual differential performed [facility] Interpretation and review of laboratory results Abnormal [facility] Lymphocytes (Bld) [#/Vol] 5.7 10*3/uL High 1.0 - 4.3 10*3/uL [facility] Lymphocytes Manual 76 [facility] Lymphocytes/100 WBC (Bld) 76 % High 15 - 45 % [facility] Microcytes Ql (Bld) Slight Abnormal (none) [facility] Monocytes (Bld) [#/Vol] 0.4 10*3/uL 0.0 - 0.9 10*3/uL [facility] Monocytes Manual 5 [facility] Monocytes/100 WBC (Bld) 5 % 5 - 13 % [facility] Neutrophils (Bld) [#/Vol] 1.4 10*3/uL Low 1.8 - 7.0 10*3/uL [facility] Neutrophils Manual 18 [facility] Ovalocytes LM Ql (Bld) Slight Abnormal (none) [facility] Platelet morphology finding Nom (Bld) Normal [facility] Poikilocytosis LM Ql (Bld) Slight Abnormal (none) [facility] Segmented neutrophils/100 WBC (Bld) 18 % Low 38 - 82 % [facility] Smudge cells/100 WBC (Bld) Present Abnormal (none) per 100 WBCs [facility] WBC corrected for nucl RBC (Bld) [#/Vol] 7.5 10*3/uL 3.6 - 10.7 10*3/uL [facility] Differential perform ed on albumin slide. [facility] Progress Noteon 10-29-2023 Progress Note Normal [facility] VITAMIN B12on 10-29-2023 Cobalamin (Vitamin B12) [Mass/Vol] 713 pg/mL Normal 239-931 [facility] Comment on above: Performed By: #### L AB68, LAB67, [id number], LAB17 ####Senior Sustainability Advisor: HENNY WADE ([phone])[facility] ([facility])[address] [place] [address] 36on 10-28-2023 36 Noted, thank you. Normal [facility] 36 After review by MZ, pt should return to ER. Call to pt and she is on her way to the ER. States she does live 1.5 hrs away. Will route to [facility] as FYI. Normal [facility] 36 DOS 05/10/23 LRYGB JZ Last OV-08/11/23 with [facility], next 11/15/23 with [facility] Pt was seen in ER on 10/26/23 and was to be admitted with transaminitis. Will send to MZ for review. Normal [facility] 36 Normal [facility] BASIC METABOLIC PANELon Anion gap [Moles/Vol] 11 mmol/L Normal 3-13 [facility] Comment on above: Performed By: #### L AB20, LAB99, LAB15 ####Senior Sustainability Advisor: HENNY WADE ([phone])[facility] ([facility])[address] [place] [address] Calcium [Mass/Vol] 8.4 mg/dL Normal 8.4-10.4 [facility] Comment on above: Performed By: #### L AB20, LAB99, LAB15 ####Senior Sustainability Advisor: HENNY WADE ([phone])[facility] ([facility])[address] [place] [address] Chloride [Moles/Vol] 100 mmol/L Normal 98-107 [facility] Comment on above: Performed By: #### L AB20, LAB99, LAB15 ####Senior Sustainability Advisor: HENNY WADE ([phone])[facility] ([facility])[address] [place] [address] CO2 [Moles/Vol] 23 mmol/L Normal 22-30 [facility] Comment on above: Performed By: #### L AB20, LAB99, LAB15 ####Senior Sustainability Advisor: HENNY WADE ([phone])[facility] ([facility])[address] [place] [address] Creatinine [Mass/Vol] 0.58 mg/dL Normal 0.52-1.04 [facility] Comment on above: Performed By: #### L AB20, LAB99, LAB15 ####Senior Sustainability Advisor: HENNY WADE ([phone])[facility] ([facility])[address] [place] [address] [place] GLOMERULAR FILTRATION RATE ML/MIN/1.73 SQ M.PREDICTED >90.0 Normal >60.0 [facility] Comment on above: Result Comment: Calc ulation based on the Chronic Kidney Disease Epidemiology Collaboration (CKD-EPI) equation refit without adjustment for race Performed By: #### L AB20, LAB99, LAB15 ####Senior Sustainability Advisor: HENNY WADE ([phone])[facility] ([facility])[address] [place] [address] [place] Glucose [Mass/Vol] 87 mg/dL Normal 70-100 [facility] Comment on above: Performed By: #### L AB20, LAB99, LAB15 ####Senior Sustainability Advisor: HENNY [phone])[facility] ([facility])[address] [place] [address] Potassium [Moles/Vol] 3.5 mmol/L Normal 3.5-5.1 [facility] Comment on above: Performed By: #### L AB20, LAB99, LAB15 ####Senior Sustainability Advisor: HENNY WADE ([phone])[facility] ([facility])[address] [place] [address] Sodium [Moles/Vol] 134 mmol/L Low 135-145 [facility] Comment on above: Performed By: #### L AB20, LAB99, LAB15 ####Senior Sustainability Advisor: HENNY WADE ([phone])[facility] ([facility])[address] [place] [address] Urea nitrogen [Mass/Vol] 5 mg/dL Low 7-17 [facility] Comment on above: Performed By: #### L AB20, LAB99, LAB15 ####Senior Sustainability Advisor: HENNY WADE ([phone])[facility] ([facility])[address] [place] [address] Basic metabolic 1998 panelon 10-28-2023 Anion gap [Moles/Vol] 11 mmol/L 3 - 13 mmol/L [facility] Calcium [Mass/Vol] 8.4 mg/dL 8.4 - 10. 4 mg/dL [facility] Chloride [Moles/Vol] 100 mmol/L 98 - 10 7 mmol/L [facility] CO2 [Moles/Vol] 23 mmol/L 22 - 30 mmol/L [facility] Creatinine [Mass/Vol] 0.58 mg/dL 0.52 - 1.04 mg/dL [facility] GFR/1.73 sq M.predicted (S/P/Bld) [Vol rate/Area] - PINF [facility] Comment on above: Calculation based on the Chronic Kidney Disease Epidemiology Collaboration (CKD-EPI) equation refit without adjustment for race Glucose [Mass/Vol] 87 mg/dL 70 - 100 mg/dL [facility] Interpretation and review of laboratory results Abnormal [facility] Potassium [Moles/Vol] 3.5 mmol/L 3.5 - 5.1 mmol/L [facility] Sodium [Moles/Vol] 134 mmol/L Low 135 - 145 mmol/L [facility] Urea nitrogen [Mass/Vol] 5 mg/dL Low 7 - 17 mg/dL [facility] CBC W Auto Differential pane l (Bld)Ordered By: Reinier Jackson on 10-28-2023 Erythrocyte distribution width (RBC) [Ratio] 18.3 % High 11.5 - 15.0 % [facility] Hematocrit (Bld) [Volume fraction] 37.9 % 35.0 - 47.0 % [facility] Hemoglobin (Bld) [Mass/Vol] 12.3 g/dL 11.7 - 16.0 g/dL [facility] IPF 6 [facility] MCH (RBC) [Entitic mass] 22.5 pg Low 26.0 - 34.0 pg [facility] MCHC (RBC) [Mass/Vol] 32.5 % 30.5 - 36.0 % [facility] MCV (RBC) [Entitic vol] 69.4 fL Low 77.0 - 99.0 fL [facility] Nucleated RBC/100 WBC (Bld) [Ratio] 0.0 % [facility] Platelet mean volume (Bld) [Entitic vol] [facility] Comment on above: Unable to calculate result. Platelets (Bld) [#/Vol] 191 10*3/uL 140 - 440 10*3/uL [facility] RBC (Bld) [#/Vol] 5.46 10*6/uL High 3.80 - 5.2 0 10*6/uL [facility] WBC (Bld) [#/Vol] 10.0 10*3/uL 3.6 - 10.7 10*3/uL [facility] CBC WITH AUTO DIFFERENTIALon 10-28-2023 Erythrocyte distribution width (RBC) [Ratio] 18.3 % High 11.5-15.0 [facility] Comment on above: Performed By: #### L [id number], [id number] ####Senior Sustainability Advisor: HENNY WADE ([phone])[facility] ([facility] Hematocrit (Bld) [Volume fraction] 37.9 % Normal 35.0-47.0 [facility] Comment on above: Performed By: #### L [id number], [id number] ####Senior Sustainability Advisor: HENNY WADE ([phone])[facility])[address] [place] [address] Hemoglobin (Bld) [Mass/Vol] 12.3 g/dL Normal 11.7-16.0 [facility] Comment on above: Performed By: #### L [id number], [id number] ####Senior Sustainability Advisor: HENNY WADE ([phone])[facility])[address] [place] [address] IPF 6 Normal [facility] Comment on above: Performed By: #### L [id number], [id number] ####Senior Sustainability Advisor: HENNY WADE ([phone])[facility])[address] [place] [address] MCH (RBC) [Entitic mass] 22.5 pg Low 26.0-34.0 [facility] Comment on above: Performed By: #### L [id number], [id number] ####Senior Sustainability Advisor: HENNY WADE ([phone])[facility])[address] [place] [address] MCHC 32.5 % Normal 30.5-36.0 [facility] Comment on above: Performed By: #### L [id number], [id number] ####Senior Sustainability Advisor: HENNY WADE ([phone])[facility])[address] [place] [address] MCV (RBC) [Entitic vol] 69.4 fL Low 77.0-99.0 [facility] Comment on above: Performed By: #### L [id number], [id number] ####Senior Sustainability Advisor: HENNY WADE ([phone])[facility])[address] [place] [address] MPV Normal [facility] Comment on above: Result Comment: Unab le to calculate result. Performed By: #### L [id number], [id number] ####Senior Sustainability Advisor: HENNY WADE ([phone])[facility])[address] [place] [address] NRBC 0.0 /100 WBCs Normal 0.0-2.0 [facility] Comment on above: Performed By: #### L [id number], [id number] ####Senior Sustainability Advisor: HENNY WADE ([phone])[facility] ([facility])[address] [place] [address] Platelets (Bld) [#/Vol] 191 10*3/uL Normal 140-440 [facility] Comment on above: Performed By: #### L [id number], [id number] ####Senior Sustainability Advisor: HENNY WADE ([phone])[facility] ([facility])[address] [place] [address] RBC (Bld) [#/Vol] 5.46 10*6/uL High 3.80-5.20 [facility] Comment on above: Performed By: #### L [id number], [id number] ####Senior Sustainability Advisor: HENNY WADE ([phone])[facility] ([facility])[address] [place] [address] WBC (Bld) [#/Vol] 10.0 10*3/uL Normal 3.6-10.7 [facility] Comment on above: Performed By: #### L [id number], [id number] ####Senior Sustainability Advisor: HENNY WADE ([phone])[facility] ([facility])[address] [place] [address] ED Nursing Noteon 10-28-2023 ED Nursing Note Pt refusing gown at this time stating that she would like to stay in her own clothes, pt denies further needs at this time and is resting comfortably in bed. Will continue to monitor. Danyelle Irby RN 10/28/23 1834 Normal [facility] ED Provider Noteon ED Provider Note Normal [facility] HEPATIC FUNCTION PANELon Albumin [Mass/Vol] 3.5 g/dL Normal 3.5-5.0 [facility] Comment on above: Performed By: #### L AB20, LAB99, LAB15 ####Senior Sustainability Advisor: HENNY WADE ([phone])[facility])[address] [place] [address] [place] ALP [Catalytic activity/Vol] 707 U/L High 38-126 [facility] Comment on above: Performed By: #### L AB20, LAB99, LAB15 ####Senior Sustainability Advisor: HENNY WADE ([phone])[facility] ([facility])[address] [place] [address] [place] ALT [Catalytic activity/Vol] 280 U/L High 0-34 [facility] Comment on above: Performed By: #### L AB20, LAB99, LAB15 ####Senior Sustainability Advisor: HENNY WADE ([phone])[facility] ([facility])[address] [place] [address] AST [Catalytic activity/Vol] 475 U/L High 15-46 [facility] Comment on above: Performed By: #### L AB20, LAB99, LAB15 ####Senior Sustainability Advisor: HENNY WADE ([phone])[facility] ([facility])[address] [place] [address] Bilirubin [Mass/Vol] 4.0 mg/dL High 0.2-1.3 [facility] Comment on above: Performed By: #### L AB20, LAB99, LAB15 ####Senior Sustainability Advisor: HENNY WADE ([phone])[facility])[address] [place] [address] Bilirubin.indirect [Mass/Vol] 1.6 mg/dL High 0.0-0.3 [facility] Comment on above: Performed By: #### L AB20, LAB99, LAB15 ####Senior Sustainability Advisor: HENNY WADE ([phone])[facility])[address] [place] [address] Protein [Mass/Vol] 7.5 g/dL Normal 6.3-8.2 [facility] Comment on above: Performed By: #### L AB20, LAB99, LAB15 ####Senior Sustainability Advisor: HENNY WADE ([phone])[facility])[address] [place] [address] [place] Hepatic function 2000 panelO rdered By: Tino Lopez on 10-28-2023 Albumin [Mass/Vol] 3.5 g/dL 3.5 - 5.0 g/dL [facility] ALP [Catalytic activity/Vol] 707 U/L High 38 - 126 U/L [facility] ALT [Catalytic activity/Vol] 280 U/L High 0 - 34 U/L [facility] AST [Catalytic activity/Vol] 475 U/L High 15 - 46 U/L [facility] Bilirubin [Mass/Vol] 4.0 mg/dL High 0.2 - 1 .3 mg/dL [facility] Bilirubin.conjugated [Mass/Vol] 1.6 mg/dL High 0.0 - 0.3 mg/dL [facility] Interpretation and review of laboratory results Abnormal [facility] Protein [Mass/Vol] 7.5 g/dL 6.3 - 8.2 g/dL [facility] IDNon 10-28-2023 IDN Normal [facility] LIPASEon 10-28-2023 Lipase [Catalytic activity/Vol] 135 U/L Normal 23-300 [facility] Comment on above: Performed By: #### L AB20, LAB99, LAB15 ####Senior Sustainability Advisor: HENNY WADE ([phone])[address] Laboratory - Chemistry and C hemistry - challengeon 10-28-2023 Lipase [Catalytic activity/Vol] 135 U/L 23 - 300 U/L [facility] Lipase [Catalytic activity/V ol]on 10-28-2023 Interpretation and review of laboratory results Normal [facility] MANUAL DIFFERENTIALon 2023 ANISOCYTOSIS PRESENCE IN BLOOD BY LIGHT MICROSCOPY Slight Abnormal (none) [facility] Comment on above: Performed By: #### L [id number], [id number] ####Senior Sustainability Advisor: HENNY WADE ([phone])[facility])[address] [place] [address] BAND NEUTROPHILS TOTAL PER COUNTED LEUKOCYTES BY MANUAL COUNT 33 Normal [facility] Comment on above: Performed By: #### L OH2032, [id number] ####Senior Sustainability Advisor: HENNY WADE ([phone])[facility] (SACLAB)[address] [place] [address] [place] BANDS 2.1 10*3/uL High <=0.0 [facility] Comment on above: Performed By: #### L [id number], [id number] ####Senior Sustainability Advisor: HENNY WADE ([phone])[facility] (PSYCHIATRICLAB)[address] [place] [address] [place] BASOPHILS (10*3/UL) IN BLOOD BY MANUAL COUNT 0.2 10*3/uL Normal 0.0-0.2 [facility] Comment on above: Performed By: #### L [id number], [id number] ####Senior Sustainability Advisor: HENNY WADE ([phone])[facility] (PSYCHIATRICLAB)[address] [place] [address] BASOPHILS TOTAL PER COUNTED LEUKOCYTES BY MANUAL COUNT 3 Normal [facility] Comment on above: Performed By: #### L [id number], [id number] ####Senior Sustainability Advisor: HENNY WADE ([phone])[facility] (PSYCHIATRICLAB)[address] [place] [address] [place] BASOPHILS/100 LEUKOCYTES IN BLOOD BY MANUAL COUNT 2 % Normal 0-2 [facility] Comment on above: Performed By: #### L [id number], [id number] ####Senior Sustainability Advisor: HENNY WADE ([phone])[facility] ([facility])[address] [place] [address] [place] CELLS COUNTED TOTAL (#) IN BLOOD 155 Normal [facility] Comment on above: Performed By: #### L [id number], [id number] ####Senior Sustainability Advisor: HENNY WADE ([phone])[facility] (PSYCHIATRICLAB)[address] [place] [address] [place] HYPOCHROMIA (PRESENCE) IN BLOOD BY LIGHT MICROSCOPY Slight Abnormal (none) [facility] Comment on above: Performed By: #### L [id number], [id number] ####Senior Sustainability Advisor: HENNY WADE ([phone])[facility] ([facility])[address] [place] [address] [place] LEUKOCYTE MORPHOLOGY FINDING IN BLOOD Normal Normal [facility] Comment on above: Performed By: #### L [id number], [id number] ####Senior Sustainability Advisor: HENNY WADE ([phone])[facility])[address] [place] [address] [place] LEUKOCYTES (10*3/UL) NUCLEATED ERYTHROCYTE ADJUST 10.0 10*3/uL Normal 3.6-10.7 [facility] Comment on above: Performed By: #### L [id number], [id number] ####Senior Sustainability Advisor: HENNY WADE ([phone])[facility])[address] [place] [address] [place] LYMPHOCYTES (10*3/UL) IN BLOOD BY MANUAL COUNT 2.6 10*3/uL Normal 1.0-4.3 [facility] Comment on above: Performed By: #### L [id number], [id number] ####Senior Sustainability Advisor: HENNY WADE ([phone])[facility])[address] [place] [address] [place] LYMPHOCYTES TOTAL PER COUNTED LEUKOCYTES BY MANUAL COUNT 40 Normal [facility] Comment on above: Performed By: #### L [id number], [id number] ####Senior Sustainability Advisor: HENNY WADE ([phone])[facility])[address] [place] [address] [place] LYMPHOCYTES/100 LEUKOCYTES IN BLOOD BY MANUAL COUNT 26 % Normal 15-45 [facility] Comment on above: Performed By: #### L [id number], [id number] ####Senior Sustainability Advisor: HENNY WADE ([phone])[facility])[address] [place] [address] [place] METAMYELOCYTES (10*3/UL) IN BLOOD BY MANUAL COUNT 0.3 10*3/uL High <=0.0 [facility] Comment on above: Performed By: #### L [id number], [id number] ####Senior Sustainability Advisor: HENNY WADE ([phone])[facility])[address] [place] [address] [place] METAMYELOCYTES TOTAL PER COUNTED LEUKOCYTES BY MANUAL COUNT 4 Normal [facility] Comment on above: Result Comment: ORDE R COMMENTS:Few reactive lymphocytes Performed By: #### L [id number], [id number] ####Senior Sustainability Advisor: HENNY WADE ([phone])[facility])[address] [place] [address] METAMYELOCYTES/100 LEUKOCYTES IN BLOOD BY MANUAL COUNT 3 % High <=0 [facility] Comment on above: Performed By: #### L [id number], [id number] ####Senior Sustainability Advisor: HENNY WADE ([phone])[facility] ([facility])[address] [place] [address] MICROCYTES (PRESENCE) IN BLOOD BY LIGHT MICROSCOPY Slight Abnormal (none) [facility] Comment on above: Performed By: #### L [id number], [id number] ####Senior Sustainability Advisor: HENNY WADE ([phone])[facility])[address] [place] [address] [place] MONOCYTES (10*3/UL) IN BLOOD BY MANUAL COUNT 0.5 10*3/uL Normal 0.0-0.9 [facility] Comment on above: Performed By: #### L [id number], [id number] ####Senior Sustainability Advisor: HENNY WADE ([phone])[facility])[address] [place] [address] [place] MONOCYTES TOTAL PER COUNTED LEUKOCYTES BY MANUAL COUNT 7 Normal [facility] Comment on above: Performed By: #### L [id number], [id number] ####Senior Sustainability Advisor: HENNY WADE ([phone])[facility])[address] [place] [address] [place] MONOCYTES/100 LEUKOCYTES IN BLOOD BY MANUAL COUNT 5 % Normal 5-13 [facility] Comment on above: Performed By: #### L [id number], [id number] ####Senior Sustainability Advisor: HENNY WADE ([phone])[facility])[address] [place] [address] [place] NEUTROPHILS (SEGS+BANDS) (10*3/UL) BY MANUAL COUNT 6.5 10*3/uL Normal 1.8-7.0 [facility] Comment on above: Performed By: #### L [id number], [id number] ####Senior Sustainability Advisor: HENNY WADE ([phone])[facility])[address] [place] [address] NEUTROPHILS BAND FORM/100 LEUKOCYTES IN BLOOD BY MANUAL COUNT 21 % High <=0 [facility] Comment on above: Performed By: #### L [id number], [id number] ####Senior Sustainability Advisor: HENNY WADE ([phone])[facility] ([facility])[address] [place] [address] NEUTROPHILS TOTAL PER COUNTED LEUKOCYTES BY MANUAL COUNT 68 Normal [facility] Comment on above: Performed By: #### L [id number], [id number] ####Senior Sustainability Advisor: HENNY WADE ([phone])[facility])[address] [place] [address] PLATELET MORPHOLOGY IN BLOOD Normal Normal [facility] Comment on above: Performed By: #### L [id number], [id number] ####Senior Sustainability Advisor: HENNY WADE ([phone])[facility] ([facility])[address] [place] [address] SEGEMENTED NEUTROPHILS/100 LEUKOCYTES BY MANUAL COUNT 44 % Normal 38-82 [facility] Comment on above: Performed By: #### L [id number], [id number] ####Senior Sustainability Advisor: HENNY WADE ([phone])[facility])[address] [place] [address] SEGMENTED NEUTROPHILS (10*3/UL)IN BLOOD BY MANUAL COUNT 6.5 10*3/uL Normal 1.8-7.5 [facility] Comment on above: Performed By: #### L [id number], [id number] ####Senior Sustainability Advisor: HENNY WADE ([phone])[facility])[address] [place] [address] Manual differential performe d Ql (Bld)on 10-28-2023 Anisocytosis Ql (Bld) Slight Abnormal (none) [facility] Band form neutrophils (Bld) [#/Vol] 2.1 10*3/uL High NINF - 0.0 10*3/uL [facility] Band form neutrophils/100 WBC (Bld) 21 % High NINF - 0 % [facility] Bands Manual 33 [facility] Basophils (Bld) [#/Vol] 0.2 10*3/uL 0.0 - 0.2 10*3/uL [facility] Basophils Manual 3 [facility] alth Basophils/100 WBC (Bld) 2 % 0 - 2 % [facility] Cells Counted Total (Bld) [#] 155 {cells} [facility] Hypochromia Ql (Bld) Slight Abnormal (none) [facility] Leukocyte morphology finding Nom (Bld) Normal [facility] Lymphocytes (Bld) [#/Vol] 2.6 10*3/uL 1.0 - 4.3 10*3/uL [facility] Lymphocytes Manual 40 [facility] Lymphocytes/100 WBC (Bld) 26 % 15 - 45 % [facility] Metamyelocytes (Bld) [#/Vol] 0.3 10*3/uL High NINF - 0.0 10*3/uL [facility] Metamyelocytes Manual [address] [facility] Metamyelocytes/100 WBC (Bld) 3 % High NINF - 0 % [facility] Microcytes Ql (Bld) Slight Abnormal (none) [facility] Monocytes (Bld) [#/Vol] 0.5 10*3/uL 0.0 - 0.9 10*3/uL [facility] Monocytes Manual 7 [facility] alth Monocytes/100 WBC (Bld) 5 % 5 - 13 % [facility] Neutrophils (Bld) [#/Vol] 6.5 10*3/uL 1.8 - 7.5 10*3/uL [facility] Neutrophils Manual 68 [facility] Platelet morphology finding Nom (Bld) Normal [facility] Segmented neutrophils/100 WBC (Bld) 44 % 38 - 82 % [facility] WBC corrected for nucl RBC (Bld) [#/Vol] 10.0 10*3/uL 3.6 - 10.7 10*3/uL [facility] Few reactive lymphocytes [facility] No Panel Informationon 10-27 Interpretation and review of laboratory results Abnormal [facility] ACETAMINOPHEN LEVELon 2023 Acetaminophen [Mass/Vol] ug/mL Low 10.0-30.0 [facility] Comment on above: Performed By: #### L [id number] ####Senior Sustainability Advisor: STERLING SERNA ([phone])[facility] (SBHL[facility])[address] [place] [address] Acetaminophen [Mass/Vol]on 0 10-27-2023 Interpretation and review of laboratory results Abnormal [facility] BLOOD CULTUREon 10-27-2023 Bacteria identified Cx Nom (Bld) Normal [facility] Comment on above: Performed By: #### L [id number] ####Senior Sustainability Advisor: HENNY WADE ([phone])[facility] (SACLAB)[address] [place] [address] CBC W Auto Differential pane l (Bld)on 10-27-2023 Erythrocyte distribution width (RBC) [Ratio] 17.9 % High 11.5 - 15.0 % [facility] Hematocrit (Bld) [Volume fraction] 35.4 % 35.0 - 47.0 % [facility] Hemoglobin (Bld) [Mass/Vol] 11.2 g/dL Low 11.7 - 16.0 g/dL [facility] IPF 6 [facility] MCH (RBC) [Entitic mass] 22.9 pg Low 26.0 - 34.0 pg [facility] MCHC (RBC) [Mass/Vol] 31.6 % 30.5 - 36.0 % [facility] MCV (RBC) [Entitic vol] 72.2 fL Low 77.0 - 99.0 fL [facility] Platelet mean volume (Bld) [Entitic vol] [facility] Comment on above: Unable to obtain. Platelets (Bld) [#/Vol] 169 10*3/uL 140 - 440 10*3/uL [facility] RBC (Bld) [#/Vol] 4.90 10*6/uL 3.80 - 5.2 0 10*6/uL [facility] WBC (Bld) [#/Vol] 7.3 10*3/uL 3.6 - 10.7 10*3/uL [facility] CBC WITH AUTO DIFFERENTIALon 10-27-2023 Erythrocyte distribution width (RBC) [Ratio] 17.9 % High 11.5-15.0 [facility] Comment on above: Performed By: #### L [id number] ####Senior Sustainability Advisor: HENNY WADE ([phone])[facility] ([facility])[address] [place] [address]#### [id number], [id number] ####Senior Sustainability Advisor: STERLING SERNA ([phone])[facility] ([facility])[address] [place] [address] Hematocrit (Bld) [Volume fraction] 35.4 % Normal 35.0-47.0 [facility] Comment on above: Performed By: #### L [id number] ####Senior Sustainability Advisor: HENNY WADE ([phone])[facility] ([facility])[address] [place] [address]#### [id number], [id number] ####Senior Sustainability Advisor: STERLING SERNA ([phone])[facility] (SBHLAB)[address] [place] [address] Hemoglobin (Bld) [Mass/Vol] 11.2 g/dL Low 11.7-16.0 [facility] Comment on above: Performed By: #### L [id number] ####Senior Sustainability Advisor: HENNY WADE ([phone])[facility] ([facility])[address] [place] [address]#### [id number], [id number] ####Senior Sustainability Advisor: STERLING SERNA ([phone])[facility] (SB[facility])[address] [place] [address] IPF 6 Normal [facility] Comment on above: Performed By: #### L [id number] ####Senior Sustainability Advisor: HENNY WADE ([phone])[facility] ([facility])[address] [place] [address]#### [id number], [id number] ####Senior Sustainability Advisor: STERLING SERNA ([phone])[facility] ([facility])[address] [place] [address] MCH (RBC) [Entitic mass] 22.9 pg Low 26.0-34.0 [facility] Comment on above: Performed By: #### L [id number] ####Senior Sustainability Advisor: HENNY WADE ([phone])[facility] (SAC[facility])[address] [place] [address]#### [id number], [id number] ####Senior Sustainability Advisor: STERLING SERNA ([phone])[facility] ([facility])[address] [place] [address] MCHC 31.6 % Normal 30.5-36.0 [facility] Comment on above: Performed By: #### L [id number] ####Senior Sustainability Advisor: HENNY WADE ([phone])[facility] (PSYCHIATRICLAB)[address] [place] [address]#### [id number], [id number] ####Senior Sustainability Advisor: STERLING SERNA ([phone])[facility] ([facility])[address] [place] [address] MCV (RBC) [Entitic vol] 72.2 fL Low 77.0-99.0 S [facility] Comment on above: Performed By: #### L [id number] ####Senior Sustainability Advisor: HENNY WADE ([phone])[facility] ([facility])[address] [place] [address]#### [id number], [id number] ####Senior Sustainability Advisor: STERLING SERNA ([phone])[facility] ([facility])[address] [place] [address] MPV Normal [facility] Comment on above: Result Comment: Unab le to obtain. Performed By: #### L [id number] ####Senior Sustainability Advisor: HENNY WADE ([phone])[facility] ([facility])[address] [place] [address]#### [id number], [id number] ####Senior Sustainability Advisor: STERLING SERNA ([phone])[facility] ([facility])[address] [place] [address] Platelets (Bld) [#/Vol] 169 10*3/uL Normal 140-440 [facility] Comment on above: Performed By: #### L [id number] ####Senior Sustainability Advisor: HENNY WADE ([phone])[facility] (SAC[facility])[address] [place] [address]#### [id number], [id number] ####Senior Sustainability Advisor: STERLING SERNA ([phone])[facility] [place] ([facility])[address] RBC (Bld) [#/Vol] 4.90 10*6/uL Normal 3.80-5.20 [facility] Comment on above: Performed By: #### L [id number] ####Senior Sustainability Advisor: HENNY WADE ([phone])[facility] (PSYCHIATRICLAB)[address] [place] [address]#### [id number], [id number] ####Senior Sustainability Advisor: STERLING SERNA ([phone])[facility] [place] ([facility])[address] [place] [address] WBC (Bld) [#/Vol] 7.3 10*3/uL Normal 3.6-10.7 [facility] Comment on above: Performed By: #### L [id number] ####Senior Sustainability Advisor: HENNY WADE ([phone])[facility] (PSYCHIATRICLAB)[address] [place] [address]#### [id number], [id number] ####Senior Sustainability Advisor: STERLING SERNA ([phone])[facility] [place] ([facility])[address] [place] [address] COMPLETE URINALYSISon 2023 BACTERIA (#/HPF) IN URINE Few Abnormal Negative [facility] Comment on above: Performed By: #### L [id number] ####Senior Sustainability Advisor: STERLING SERNA ([phone])[facility] [place] ([facility])[address] BILIRUBIN, TOTAL PRESENCE IN URINE 2 mg/dL Abnormal Negative [facility] Comment on above: Performed By: #### L [id number] ####Senior Sustainability Advisor: STERLING SERNA ([phone])[facility] ([facility])[address] Clarity (U) Turbid Abnormal Clear [facility] Comment on above: Performed By: #### L [id number] ####Senior Sustainability Advisor: STERLING SERNA ([phone])[facility] ([facility])[address] Color (U) Dark Yellow Abnormal Lt. Yellow [facility] Comment on above: Performed By: #### L [id number] ####Senior Sustainability Advisor: STERLING SERNA ([phone])[facility] ([facility])[address] [place] [address] GLUCOSE (MG/DL) IN URINE Normal Normal Normal (<70) [facility] Comment on above: Performed By: #### L [id number] ####Senior Sustainability Advisor: STERLING SERNA ([phone])[facility] ([facility])[address] [place] [address] HEMOGLOBIN PRESENCE IN URINE 1.0 mg/dL Abnormal Negative [facility] Comment on above: Performed By: #### L [id number] ####Senior Sustainability Advisor: STERLING SERNA ([phone])[facility] ([facility])[address] [place] [address] Ketones Ql (U) 100 mg/dL Abnormal Negative [facility] Comment on above: Performed By: #### L [id number] ####Senior Sustainability Advisor: STERILNG SERNA ([phone])[facility] ([facility])[address] [place] [address] LEUKOCYTE ESTERASE PRESENCE IN URINE BY TEST STRIP 75 Krish/uL Abnormal Negative [facility] Comment on above: Performed By: #### L [id number] ####Senior Sustainability Advisor: STERLING SERNA ([phone])[facility] ([facility])[address] [place] [address] [place] MUCUS (#/LPF) IN URINE SEDIMENT Many Abnormal Negative [facility] Comment on above: Performed By: #### L [id number] ####Senior Sustainability Advisor: STERLING SERNA ([phone])[facility]SErika [facility] ([facility])[address] NITRITE PRESENCE IN URINE Negative Normal Negative [facility] Comment on above: Performed By: #### L [id number] ####Senior Sustainability Advisor: STERLING SERNA ([phone])[facility] ([facility])[address] pH (U) 6.0 [pH] Normal 5.0-8.0 [facility] Comment on above: Performed By: #### L [id number] ####Senior Sustainability Advisor: STERLING SERNA ([phone])[facility] ([facility])[address] Protein (U) [Mass/Vol] 50 mg/dL Abnormal Negative [facility] Comment on above: Performed By: #### L [id number] ####Senior Sustainability Advisor: STERLING SERNA ([phone])[facility] [place] ([facility])[address] RBC (#/HPF) IN URINE SEDIMENT >100 Abnormal 0-2 [facility] Comment on above: Performed By: #### L [id number] ####Senior Sustainability Advisor: STERLING SERNA ([phone])[facility] ([facility])[address] [place] [address] Specific gravity (U) [Rel density] 1.025 Normal 1.005-1.030 [facility] Comment on above: Performed By: #### L [id number] ####Senior Sustainability Advisor: STERLING SERNA ([phone])[facility] [place] ([facility])[address] SQUAMOUS EPITHELIAL CELLS (#/HPF) IN URINE SEDIMENT 11-25 Abnormal 3-5 [facility] Comment on above: Performed By: #### L [id number] ####Senior Sustainability Advisor: STERLING SERNA ([phone])[facility] ([facility])[address] UROBILINOGEN (MG/DL) IN URINE 8 mg/dL Abnormal Normal (0-1) [facility] Comment on above: Performed By: #### L [id number] ####Senior Sustainability Advisor: STERLING SERNA ([phone])[facility] ([facility])[address] WBC (LEUKOCYTE) (#/HPF) IN URINE SEDIMENT 11-25 Abnormal 0-5 [facility] Comment on above: Performed By: #### L [id number] ####Senior Sustainability Advisor: STERLIGN SERNA ([phone])[facility]BUSErika [facility] MARYVALESadiq (SBHLAB)[address] COMPREHENSIVE METABOLIC PANE Chavez 10-27-2023 Albumin [Mass/Vol] 3.0 g/dL Low 3.5-5.0 [facility] Comment on above: Performed By: #### L AB17 ####Senior Sustainability Advisor: STERLING SERNA ([phone])[facility] ([facility])[address] ALP [Catalytic activity/Vol] 566 U/L High 38-126 [facility] Comment on above: Performed By: #### L AB17 ####Senior Sustainability Advisor: STERLING SERNA ([phone])[facility] ([facility])[address] ALT [Catalytic activity/Vol] 256 U/L High 0-34 [facility] Comment on above: Performed By: #### L AB17 ####Senior Sustainability Advisor: STERLING SERNA ([phone])[facility] ([facility])[address] Anion gap [Moles/Vol] 12 mmol/L Normal 3-13 [facility] Comment on above: Performed By: #### L AB17 ####Senior Sustainability Advisor: STERLING SERNA ([phone])[facility] ([facility])[address] [place] [address] [place] AST [Catalytic activity/Vol] 374 U/L High 15-46 [facility] Comment on above: Performed By: #### L AB17 ####Senior Sustainability Advisor: STERLING SERNA ([phone])[facility] [place] ([facility])[address] Bilirubin [Mass/Vol] 3.0 mg/dL High 0.2-1.3 [facility] Comment on above: Performed By: #### L AB17 ####Senior Sustainability Advisor: STERLING SERNA ([phone])[facility] [place] ([facility])[address] Calcium [Mass/Vol] 8.3 mg/dL Low 8.4-10.4 [facility] Comment on above: Performed By: #### L AB17 ####Senior Sustainability Advisor: STERLING SERNA ([phone])[facility] [place] ([facility])[address] [place] [address] [place] Chloride [Moles/Vol] 101 mmol/L Normal 98-107 [facility] Comment on above: Performed By: #### L [id number] ####Senior Sustainability Advisor: STERLING SERNA ([phone])[facility] [place] ([facility])[address] [place] [address] [place] CO2 [Moles/Vol] 23 mmol/L Normal 22-30 [facility] Comment on above: Performed By: #### L [id number] ####Senior Sustainability Advisor: STERLING SERNA ([phone])[facility] [place] ([facility])[address] [place] [address] [place] Creatinine [Mass/Vol] 0.65 mg/dL Normal 0.52-1.04 [facility] Comment on above: Performed By: #### L [id number] ####Senior Sustainability Advisor: STERLING SERNA ([phone])[facility] [place] ([facility])[address] GLOMERULAR FILTRATION RATE ML/MIN/1.73 SQ M.PREDICTED >90.0 Normal >60.0 [facility] Comment on above: Result Comment: Calc ulation based on the Chronic Kidney Disease Epidemiology Collaboration (CKD-EPI) equation refit without adjustment for race Performed By: #### L [id number] ####Senior Sustainability Advisor: STERLING SERNA ([phone])[facility] [place] ([facility])[address] Glucose [Mass/Vol] 73 mg/dL Normal 70-100 [facility] Comment on above: Performed By: #### L [id number] ####Senior Sustainability Advisor: STERLING SERNA ([phone])[facility] [place] ([facility])[address] Potassium [Moles/Vol] 3.3 mmol/L Low 3.5-5.1 [facility] Comment on above: Performed By: #### L [id number] ####Senior Sustainability Advisor: STERLING SERNA ([phone])[facility] [place] ([facility])[address] Protein [Mass/Vol] 6.4 g/dL Normal 6.3-8.2 [facility] Comment on above: Performed By: #### L [id number] ####Senior Sustainability Advisor: STERLING SERNA ([phone])[facility] [place] ([facility])155 [place] [address] [place] Sodium [Moles/Vol] 136 mmol/L Normal 135-145 [facility] Comment on above: Performed By: #### L [id number] ####Senior Sustainability Advisor: STERLING SERNA ([phone])[facility] [place] ([facility])[address] [place] [address] [place] Urea nitrogen [Mass/Vol] 5 mg/dL Low 7-17 [facility] Comment on above: Performed By: #### L [id number] ####Senior Sustainability Advisor: STERLING SERNA ([phone])[facility] [place] ([facility])[address] [place] [id number] [facility] Comprehensive metabolic 1998 panelon 10-27-2023 Albumin [Mass/Vol] 3.0 g/dL Low 3.5 - 5.0 g/dL [facility] ALP [Catalytic activity/Vol] 566 U/L High 38 - 126 U/L [facility] ALT [Catalytic activity/Vol] 256 U/L High 0 - 34 U/L [facility] Anion gap [Moles/Vol] 12 mmol/L 3 - 13 mmol/L [facility] AST [Catalytic activity/Vol] 374 U/L High 15 - 46 U/L [facility] Bilirubin [Mass/Vol] 3.0 mg/dL High 0.2 - 1 .3 mg/dL [facility] Calcium [Mass/Vol] 8.3 mg/dL Low 8.4 - 10. 4 mg/dL [facility] Chloride [Moles/Vol] 101 mmol/L 98 - 10 7 mmol/L [facility] CO2 [Moles/Vol] 23 mmol/L 22 - 30 mmol/L [facility] Creatinine [Mass/Vol] 0.65 mg/dL 0.52 - 1.04 mg/dL [facility] GFR/1.73 sq M.predicted (S/P/Bld) [Vol rate/Area] - PINF [facility] Comment on above: Calculation based on the Chronic Kidney Disease Epidemiology Collaboration (CKD-EPI) equation refit without adjustment for race Glucose [Mass/Vol] 73 mg/dL 70 - 100 mg/dL [facility] Interpretation and review of laboratory results Abnormal [facility] Potassium [Moles/Vol] 3.3 mmol/L Low 3.5 - 5.1 mmol/L [facility] Protein [Mass/Vol] 6.4 g/dL 6.3 - 8.2 g/dL [facility] Sodium [Moles/Vol] 136 mmol/L 135 - 145 mmol/L [facility] Urea nitrogen [Mass/Vol] 5 mg/dL Low 7 - 17 mg/dL [facility] Consulton 10-27-2023 Consult Normal [facility] HCG QUALITATIVE URINEon Beta HCG ( test) Ql (U) Negative Normal Negative [facility] Comment on above: Result Comment: Plea se note: Very dilute urine specimens, as indicated by a low specific gravity, may not contain customer care representative levels of hCG. If is still suspected, a first morning urine specimen should be collected 48 hours later and tested.ORDER COMMENTS: is the most common reason for HCG in urine, although choriocarcinoma, hydatidiform mole, and certain nontrophoblastic malignancies also result in detectable urinary HCG levels. Sensitivity = 20mIU/mL. Performed By: #### L [id number] ####Senior Sustainability Advisor: STERLING SERNA ([phone])[facility] ([facility])[address] Hepatitis 1996 panel (S)on 10-27-2023 HAV IgM IA Ql Not detected Not Detected [facility] ealt HBV core IgM IA Ql Not detected Not Detected [facility] HBV surface Ag IA Ql Not detected Not Detected [facility] HCV Ab IA Ql Not detected Not Detected [facility]th Comment on above: Patients with DETECT ED Hepatitis C Ab results should have a new specimen submitted for supplemental testing with a Hepatitis C Quantitative RNA assay (viral load), if clinically indicated. Interpretation and review of laboratory results Normal [facility] IDNon 10-27-2023 IDN The patient is Moderately Stable - Low risk of patient condition declining or worsening The patient's goals for the shift include To feel stronger The clinical goals for the shift include maintained safety Normal [facility] IDN Normal [facility] LACTIC ACID WITH REFLEXon Lactate [Moles/Vol] 1.0 mmol/L Normal 0.7-2.0 [facility] Comment on above: Performed By: #### L [id number] ####Senior Sustainability Advisor: STERLING SERNA ([phone])[facility] [place] (SBHLAB)[address] Laboratory - Chemistry and C hemistry - challengeon 10-27-2023 Lactate [Moles/Vol] 1.0 mmol/L 0.7 - 2. 0 mmol/L [facility] Laboratory - Chemistry and C hemistry - challengeOrdered By: Balwinder Stewart on 10-27-2023 Beta HCG ( test) Ql Negative Negative [facility] Comment on above: Please note: Very di lute urine specimens, as indicated by a low specific gravity, may not contain customer care representative levels of hCG. If is still suspected, a first morning urine specimen should be collected 48 hours later and tested. Beta HCG ( test) Ql (U) is the most common reason for HCG in urine, although choriocarcinoma, hydatidiform mole, and certain nontrophoblastic malignancies also result in detectable urinary HCG levels. Sensitivity = 20mIU/mL. [facility] Laboratory - Drug toxicology on 10-27-2023 Acetaminophen [Mass/Vol] ug/mL Low 10.0 - 30.0 ug/mL [facility] MANUAL DIFFERENTIALon 2023 ANISOCYTOSIS PRESENCE IN BLOOD BY LIGHT MICROSCOPY Slight Abnormal (none) [facility] Comment on above: Performed By: #### L [id number] ####Senior Sustainability Advisor: HENNY WADE ([phone])[facility])[address] [place] [address]#### [id number], [id number] ####Senior Sustainability Advisor: STERLING SERNA ([phone])[facility] ([facility])[address] [place] [address] BAND NEUTROPHILS TOTAL PER COUNTED LEUKOCYTES BY MANUAL COUNT 8 Normal [facility] Comment on above: Performed By: #### L [id number] ####Senior Sustainability Advisor: HENNY WADE ([phone])[facility])[address] [place] [address]#### [id number], [id number] ####Senior Sustainability Advisor: STERLING SERNA ([phone])[facility] ([facility])[address] [place] [address] BANDS 0.6 10*3/uL High <=0.0 [facility] Comment on above: Performed By: #### L [id number] ####Senior Sustainability Advisor: HENNY WADE ([phone])[facility])[address] [place] [address]#### [id number], [id number] ####Senior Sustainability Advisor: STERLING SERNA ([phone])[facility] ([facility])[address] [place] [address] CHYNA CELLS PRESENCE IN BLOOD BY LIGHT MICROSCOPY Rare Abnormal (none) [facility] Comment on above: Performed By: #### L [id number] ####Senior Sustainability Advisor: HENNY WADE ([phone])[facility] ([facility])[address] [place] [address]#### [id number], [id number] ####Senior Sustainability Advisor: STERLING SERNA ([phone])[facility] ([facility])[address] [place] [address] CELLS COUNTED TOTAL (#) IN BLOOD 100 Normal [facility] Comment on above: Performed By: #### L [id number] ####Senior Sustainability Advisor: HENNY WADE ([phone])[facility] ([facility])[address] [place] [address]#### [id number], [id number] ####Senior Sustainability Advisor: STERLING SERNA ([phone])[facility])[address] [place] [address] DACROCYTES PRESENCE IN BLOOD BY LIGHT MICROSCOPY Slight Abnormal (none) [facility] Comment on above: Performed By: #### L [id number] ####Senior Sustainability Advisor: HENNY WADE ([phone])[facility] ([facility])[address] [place] [address]#### [id number], [id number] ####Senior Sustainability Advisor: STERLING SERNA ([phone])[facility] ([facility])[address] [place] [address] DIFFERENTIAL METHOD Manual differential performed Normal [facility] Comment on above: Result Comment: ORDE R COMMENTS:Slide sent for pathology reviewDifferential performed on albumin slide. Performed By: #### L [id number] ####Senior Sustainability Advisor: HENNY WADE ([phone])[facility] ([facility])[address] [place] [address]#### [id number], [id number] ####Senior Sustainability Advisor: STERLING SERNA ([phone])[facility] ([facility])[address] [place] [address] EOSINOPHILS (10*3/UL) IN BLOOD BY MANUAL COUNT 0.1 10*3/uL Normal 0.0-0.5 [facility] Comment on above: Performed By: #### L [id number] ####Senior Sustainability Advisor: HENNY WADE ([phone])[facility] ([facility])[address] [place] [address]#### [id number], [id number] ####Senior Sustainability Advisor: STERLING SERNA ([phone])[facility])[address] [place] [address] EOSINOPHILS TOTAL PER COUNTED LEUKOCYTES BY MANUAL COUNT 1 Normal 0-1 [facility] Comment on above: Performed By: #### L [id number] ####Senior Sustainability Advisor: HENNY WADE ([phone])[facility] ([facility])[address] [place] [address]#### [id number], [id number] ####Senior Sustainability Advisor: STERLING SERNA ([phone])[facility] ([facility])[address] [place] [address] EOSINOPHILS/100 LEUKOCYTES IN BLOOD BY MANUAL COUNT 1 % Normal 0-6 [facility] Comment on above: Performed By: #### L [id number] ####Senior Sustainability Advisor: HENNY WADE ([phone])[facility] ([facility])[address] [place] [address]#### [id number], [id number] ####Senior Sustainability Advisor: STERLING SERNA ([phone])[facility] ([facility])[address] [place] [address] HYPOCHROMIA (PRESENCE) IN BLOOD BY LIGHT MICROSCOPY Slight Abnormal (none) [facility] Comment on above: Performed By: #### L [id number] ####Senior Sustainability Advisor: HENNY WADE ([phone])[facility] ([facility])[address] [place] [address] [place]#### [id number], [id number] ####Senior Sustainability Advisor: STERLING SERNA ([phone])[facility] [place] (SBHLAB)[address] LEUKOCYTES (10*3/UL) NUCLEATED ERYTHROCYTE ADJUST 7.3 10*3/uL Normal 3.6-10.7 [facility] Comment on above: Performed By: #### L [id number] ####Senior Sustainability Advisor: HENNY WADE ([phone])[facility] ([facility])[address] [place] [address]#### [id number], [id number] ####Senior Sustainability Advisor: STERLING SERNA ([phone])[facility] [place] ([facility])[address] LYMPHOCYTES (10*3/UL) IN BLOOD BY MANUAL COUNT 3.6 10*3/uL Normal 1.0-4.3 [facility] Comment on above: Performed By: #### L [id number] ####Senior Sustainability Advisor: HENNY WADE ([phone])[facility] ([facility])[address] [place] [address]#### [id number], [id number] ####Senior Sustainability Advisor: STERLING SERNA ([phone])[facility] ([facility])[address] [place] [address] LYMPHOCYTES TOTAL PER COUNTED LEUKOCYTES BY MANUAL COUNT 49 Normal [facility] Comment on above: Performed By: #### L [id number] ####Senior Sustainability Advisor: HENNY WADE ([phone])[facility] ([facility])[address] [place] [address]#### [id number], [id number] ####Senior Sustainability Advisor: STERLING SERNA ([phone])[facility] ([facility])[address] [place] [address] LYMPHOCYTES VARIANT/100 LEUKOCYTES IN BLOOD 6 % High <=0 [facility] Comment on above: Performed By: #### L [id number] ####Senior Sustainability Advisor: HENNY WADE ([phone])[facility] ([facility])[address] [place] [address]#### [id number], [id number] ####Senior Sustainability Advisor: STERLING SERNA ([phone])[facility] [place] (SB[facility])[address] LYMPHOCYTES/100 LEUKOCYTES IN BLOOD BY MANUAL COUNT 49 % High 15-45 [facility] Comment on above: Performed By: #### L [id number] ####Senior Sustainability Advisor: HENNY WADE ([phone])[facility] ([facility])[address] [place] [address]#### [id number], [id number] ####Senior Sustainability Advisor: STERLING SERNA ([phone])[facility] [place] (SB[facility])[address] METAMYELOCYTES (10*3/UL) IN BLOOD BY MANUAL COUNT 0.1 10*3/uL High <=0.0 [facility] Comment on above: Performed By: #### L [id number] ####Senior Sustainability Advisor: HENNY WADE ([phone])[facility] ([facility])[address] [place] [address]#### [id number], [id number] ####Senior Sustainability Advisor: STERLING SERNA ([phone])[facility] [place] ([facility])[address] [place] [address] METAMYELOCYTES TOTAL PER COUNTED LEUKOCYTES BY MANUAL COUNT 1 Normal [facility] Comment on above: Performed By: #### L [id number] ####Senior Sustainability Advisor: HENNY WADE ([phone])[facility] ([facility])[address] [place] [address]#### [id number], [id number] ####Senior Sustainability Advisor: STERLING SERNA ([phone])[facility] [place] (SB[facility])[address] METAMYELOCYTES/100 LEUKOCYTES IN BLOOD BY MANUAL COUNT 1 % High <=0 [facility] Comment on above: Performed By: #### L [id number] ####Senior Sustainability Advisor: HENNY WADE ([phone])[facility] ([facility])[address] [place] [address]#### [id number], [id number] ####Senior Sustainability Advisor: STERLING SERNA ([phone])[facility] ([facility])[address] [place] [address] MICROCYTES (PRESENCE) IN BLOOD BY LIGHT MICROSCOPY Rare Abnormal (none) [facility] Comment on above: Performed By: #### L [id number] ####Senior Sustainability Advisor: HENNY WADE ([phone])[facility] ([facility])[address] [place] [address]#### [id number], [id number] ####Senior Sustainability Advisor: STERLING SERNA ([phone])[facility] ([facility])[address] [place] [address] MONOCYTES (10*3/UL) IN BLOOD BY MANUAL COUNT 0.3 10*3/uL Normal 0.0-0.9 [facility] Comment on above: Performed By: #### L [id number] ####Senior Sustainability Advisor: HENNY WADE ([phone])[facility] ([facility])[address] [place] [address]#### [id number], [id number] ####Senior Sustainability Advisor: STERLING SERNA ([phone])[facility] ([facility])[address] [place] [address] MONOCYTES TOTAL PER COUNTED LEUKOCYTES BY MANUAL COUNT 4 Normal [facility] Comment on above: Performed By: #### L [id number] ####Senior Sustainability Advisor: HENNY WADE ([phone])[facility] ([facility])[address] [place] [address]#### [id number], [id number] ####Senior Sustainability Advisor: STERLING SERNA ([phone])[facility] ([facility])[address] [place] [address] MONOCYTES/100 LEUKOCYTES IN BLOOD BY MANUAL COUNT 4 % Low 5-13 [facility] Comment on above: Performed By: #### L [id number] ####Senior Sustainability Advisor: HENNY WADE ([phone])[facility] ([facility])[address] [place] [address]#### [id number], [id number] ####Senior Sustainability Advisor: STERLING SERNA ([phone])[facility] ([facility])[address] [place] [address] NEUTROPHILS (SEGS+BANDS) (10*3/UL) BY MANUAL COUNT 2.6 10*3/uL Normal 1.8-7.0 [facility] Comment on above: Performed By: #### L [id number] ####Senior Sustainability Advisor: HENNY WADE ([phone])[facility] ([facility])[address] [place] [address]#### [id number], [id number] ####Senior Sustainability Advisor: STERLING SERNA ([phone])[facility] ([facility])[address] [place] [address] NEUTROPHILS BAND FORM/100 LEUKOCYTES IN BLOOD BY MANUAL COUNT 8 % High <=0 [facility] Comment on above: Performed By: #### L [id number] ####Senior Sustainability Advisor: HENNY WADE ([phone])[facility] ([facility])[address] [place] [address]#### [id number], [id number] ####Senior Sustainability Advisor: STERLING SERNA ([phone])[facility] ([facility])[address] [place] [address] NEUTROPHILS TOTAL PER COUNTED LEUKOCYTES BY MANUAL COUNT 28 Normal [facility] Comment on above: Performed By: #### L [id number] ####Senior Sustainability Advisor: HENNY WADE ([phone])[facility] ([facility])[address] [place] [address] [place]#### [id number], [id number] ####Senior Sustainability Advisor: STERLING SERNA ([phone])[facility])[address] [place] [address] OVALOCYTES PRESENCE IN BLOOD BY LIGHT MICROSCOPY Slight Abnormal (none) [facility] Comment on above: Performed By: #### L [id number] ####Senior Sustainability Advisor: HENNY WADE ([phone])[facility] ([facility])[address] [place] [address] [place]#### [id number], [id number] ####Senior Sustainability Advisor: STERLING SERNA ([phone])[facility] ([facility])[address] [place] [address] PLATELET MORPHOLOGY IN BLOOD Normal Normal [facility] Comment on above: Performed By: #### L [id number] ####Senior Sustainability Advisor: HENNY WADE ([phone])[facility] ([facility])[address] [place] [address]#### [id number], [id number] ####Senior Sustainability Advisor: STERLING SERNA ([phone])[facility] ([facility])[address] [place] [address] POIKILOCYTOSIS (PRESENCE) IN BLOOD BY LIGHT MICROSCOPY Moderate Abnormal (none) [facility] Comment on above: Performed By: #### L [id number] ####Senior Sustainability Advisor: HENNY WADE ([phone])[facility] ([facility])[address] [place] [address]#### [id number], [id number] ####Senior Sustainability Advisor: STERLING SERNA ([phone])[facility] ([facility])[address] [place] [address] POLYCHROMASIA IN BLOOD BY LIGHT MICROSCOPY Rare Abnormal (none) [facility] Comment on above: Performed By: #### L [id number] ####Senior Sustainability Advisor: HENNY WADE ([phone])[facility] ([facility])[address] [place] [address] [place]#### [id number], [id number] ####Senior Sustainability Advisor: STERLING SERNA ([phone])[facility] ([facility])[address] [place] [address] SEGEMENTED NEUTROPHILS/100 LEUKOCYTES BY MANUAL COUNT 28 % Low 38-82 [facility] Comment on above: Performed By: #### L [id number] ####Senior Sustainability Advisor: HENNY WADE ([phone])[facility] ([facility])[address] [place] [address]#### [id number], [id number] ####Senior Sustainability Advisor: STERLING SERNA ([phone])[facility] ([facility])[address] [place] [address] SEGMENTED NEUTROPHILS (10*3/UL)IN BLOOD BY MANUAL COUNT 2.6 10*3/uL Normal 1.8-7.5 [facility] Comment on above: Performed By: #### L [id number] ####Senior Sustainability Advisor: HENNY WADE ([phone])[facility] ([facility])[address] [place] [address]#### [id number], [id number] ####Senior Sustainability Advisor: STERLING SERNA ([phone])[facility] ([facility])[address] [place] [address] SMUDGE CELLS PRESENCE IN BLOOD BY LIGHT MICROSCOPY Present Abnormal (none) [facility] Comment on above: Performed By: #### L [id number] ####Senior Sustainability Advisor: HENNY WADE ([phone])[facility] ([facility])[address] [place] [address]#### [id number], [id number] ####Senior Sustainability Advisor: STERLING SERNA ([phone])[facility] ([facility])[address] [place] [address] UNCLASSIFIED CELLS (10*3/UL) IN BLOOD BY MANUAL COUNT 0.2 10*3/uL Normal [facility] Comment on above: Performed By: #### L [id number] ####Senior Sustainability Advisor: HENNY WADE ([phone])[facility] ([facility])[address] [place] [address]#### [id number], [id number] ####Senior Sustainability Advisor: STERLING SERNA ([phone])[facility] ([facility])[address] [place] [address] UNCLASSIFIED CELLS/100 LEUKOCYTES IN BLOOD 3.00 % Normal [facility] Comment on above: Performed By: #### L [id number] ####Senior Sustainability Advisor: HENNY WADE ([phone])[facility] ([facility])[address] [place] [address]#### [id number], [id number] ####Senior Sustainability Advisor: STERLING SERNA ([phone])[facility] ([facility])[address] [place] [address] VARIANT LYMPHOCYTES (10*3/UL) IN BLOOD BY MANUAL COUNT 0.4 10*3/uL High <=0.0 [facility] Comment on above: Performed By: #### L [id number] ####Senior Sustainability Advisor: HENNY WADE ([phone])[facility] ([facility])[address] [place] [address]#### [id number], [id number] ####Senior Sustainability Advisor: STERLING SERNA ([phone])[facility] ([facility])[address] [place] [address] VARIANT LYMPHOCYTES TOTAL PER COUNTED LEUKOCYTES BY MANUAL COUNT 6 Normal [facility] Comment on above: Performed By: #### L [id number] ####Senior Sustainability Advisor: HENNY WADE ([phone])[facility] ([facility])[address] [place] [address]#### [id number], [id number] ####Senior Sustainability Advisor: STERLING SERNA ([phone])[facility] ([facility])[address] [place] [address] MONONUCLEOSIS SCREENon 10-26 MONO TEST Negative Normal Negative [facility] Comment on above: Performed By: #### L [id number] ####Senior Sustainability Advisor: STERLING SERNA ([phone])[facility] ([facility])[address] [place] [address] Manual differential performe d Ql (Bld)on 10-27-2023 Anisocytosis Ql (Bld) Slight Abnormal (none) [facility] Atypical Lymphocytes Manual 6 [facility] Band form neutrophils (Bld) [#/Vol] 0.6 10*3/uL High NINF - 0.0 10*3/uL [facility] Band form neutrophils/100 WBC (Bld) 8 % High NINF - 0 % [facility] Bands Manual 8 [facility] Chyna cells LM Ql (Bld) Rare Abnormal (none) [facility] Cells Counted Total (Bld) [#] 100 {cells} [facility] Dacrocytes LM Ql (Bld) Slight Abnormal (none) [facility] Differential Method Manual differential performed [facility] Eosinophils (Bld) [#/Vol] 0.1 10*3/uL 0.0 - 0.5 10*3/uL [facility] Eosinophils Manual 1 0 - 1 [facility] Eosinophils/100 WBC (Bld) 1 % 0 - 6 % [facility] Hypochromia Ql (Bld) Slight Abnormal (none) [facility] Lymphocytes (Bld) [#/Vol] 3.6 10*3/uL 1.0 - 4.3 10*3/uL [facility] Lymphocytes Manual 49 [facility] Lymphocytes/100 WBC (Bld) 49 % High 15 - 45 % [facility] Metamyelocytes (Bld) [#/Vol] 0.1 10*3/uL High NINF - 0.0 10*3/uL [facility] Metamyelocytes Manual 1 [facility] Metamyelocytes/100 WBC (Bld) 1 % High NINF - 0 % [facility] Microcytes Ql (Bld) Rare Abnormal (none) [facility] Monocytes (Bld) [#/Vol] 0.3 10*3/uL 0.0 - 0.9 10*3/uL [facility] Monocytes Manual 4 [facility] alth Monocytes/100 WBC (Bld) 4 % Low 5 - 13 % [facility] Neutrophils (Bld) [#/Vol] 2.6 10*3/uL 1.8 - 7.5 10*3/uL [facility] Neutrophils Manual 28 [facility] Ovalocytes LM Ql (Bld) Slight Abnormal (none) [facility] Platelet morphology finding Nom (Bld) Normal [facility] Poikilocytosis LM Ql (Bld) Moderate Abnormal (none) [facility] Polychromasia LM Ql (Bld) Rare Abnormal (none) [facility] Segmented neutrophils/100 WBC (Bld) 28 % Low 38 - 82 % [facility] Smudge cells/100 WBC (Bld) Present Abnormal (none) per 100 WBCs [facility] Unclassified Cells % 3.00 % [facility] Unclassified Cells, Abs. 0.2 10*3/uL [facility] Variant lymphocytes (Bld) [#/Vol] 0.4 10*3/uL High NINF - 0.0 10*3/uL [facility] Variant lymphocytes/100 WBC (Bld) 6 % High NINF - 0 % [facility] WBC corrected for nucl RBC (Bld) [#/Vol] 7.3 10*3/uL 3.6 - 10.7 10*3/uL [facility] Slide sent for pathology review Differential performed on albumin slide. [facility] Manual differential performe d Ql (Bld)Ordered By: Raeann Cast on 10-27-2023 Anisocytosis Ql (Bld) Slight Abnormal (none) [facility] Atypical Lymphocytes Manual 4 [facility] Band form neutrophils (Bld) [#/Vol] 1.0 10*3/uL High NINF - 0.0 10*3/uL [facility] Band form neutrophils/100 WBC (Bld) 11 % High NINF - 0 % [facility] Bands Manual 11 [facility] Chyna cells LM Ql (Bld) Slight Abnormal (none) [facility] Cells Counted Total (Bld) [#] 100 {cells} [facility] Dacrocytes LM Ql (Bld) Slight Abnormal (none) [facility] Differential Method Manual differential performed [facility] Giant platelets LM Ql (Bld) Rare Abnormal (none) [facility] Hypochromia Ql (Bld) Slight Abnormal (none) [facility] Interpretation and review of laboratory results Abnormal [facility] Lymphocytes (Bld) [#/Vol] 4.5 10*3/uL High 1.0 - 4.3 10*3/uL [facility] Lymphocytes Manual 50 [facility] Lymphocytes/100 WBC (Bld) 50 % High 15 - 45 % [facility] Microcytes Ql (Bld) Slight Abnormal (none) [facility] Monocytes (Bld) [#/Vol] 0.7 10*3/uL 0.0 - 0.9 10*3/uL [facility] Monocytes Manual 8 [facility] alth Monocytes/100 WBC (Bld) 8 % 5 - 13 % [facility] Neutrophils (Bld) [#/Vol] 3.4 10*3/uL 1.8 - 7.5 10*3/uL [facility] Neutrophils Manual 27 [facility] Ovalocytes LM Ql (Bld) Slight Abnormal (none) [facility] Poikilocytosis LM Ql (Bld) Moderate Abnormal (none) [facility] Polychromasia LM Ql (Bld) Slight Abnormal (none) [facility] Segmented neutrophils/100 WBC (Bld) 27 % Low 38 - 82 % [facility] Smudge cells/100 WBC (Bld) Present Abnormal (none) per 100 WBCs [facility] Variant lymphocytes (Bld) [#/Vol] 0.4 10*3/uL High NINF - 0.0 10*3/uL [facility] Variant lymphocytes/100 WBC (Bld) 4 % High NINF - 0 % [facility] WBC corrected for nucl RBC (Bld) [#/Vol] 9.0 10*3/uL 3.6 - 10.7 10*3/uL [facility] Differential perform ed on albumin slide. [facility] No Panel Informationon 10-26 Interpretation and review of laboratory results Abnormal [facility] Interpretation and review of laboratory results Normal [facility] No Panel InformationOrdered By: Balwinder Stewart on 10-27-2023 [facility] No Panel InformationOrdered By: Hi Steele on 10-27-2023 Interpretation and review of laboratory results Normal [facility] MONO TEST Negative Negative [facility] Nursing Noteon 10-27-2023 Nursing Note Pt's IV taken out. Patient walked to ER exit to her ride. Normal [facility] Nursing Note Normal [facility] PATHOLOGY REVIEWon PATHOLOGY REVIEW Normal [facility] Comment on above: Result Comment: Micr ocytic red cell indices with increased red cell count, anisopoikilocytosis showing echinocytes [place] cellsAbsolute lymphocytosis with atypical lymphocytes.Rule out hemoglobinopathy, inflammation, infection, autoimmune disease, renal insuffciency, nutritional deficiency and/or therapy-related effects.Blasts and dysgranulopoiesis are not identified.Dangelo Freedman MD and Henny Wade M.D.ORDER COMMENTS:Hemoglobin electrophoresis recommended to evaluate for thalassemia trait. Performed By: #### L [id number] ####Senior Sustainability Advisor: HENNY WADE ([phone])[facility] ([facility])[address] [place] [address]#### [id number], [id number] ####Senior Sustainability Advisor: STERLING SERNA ([phone])[facility] ([facility])[address] [place] [address] URINE CULTUREon 10-27-2023 Bacteria identified Cx Nom (U) Normal [facility] Comment on above: Performed By: #### L [id number] ####Senior Sustainability Advisor: HENNY WADE ([phone])[facility] ([facility])[address] [place] [address] Urinalysis complete panel (U )on 10-27-2023 Bacteria LM.HPF (Urine sed) [#/Area] Few Abnormal Negative /HPF [facility] Bilirubin Ql (U) 2 mg/dL Abnormal Negative [facility] alth Clarity (U) Turbid Abnormal Clear [facility] Color (U) Dark Yellow Abnormal Lt. Yellow [facility] Epithelial cells.squamous LM.HPF (Urine sed) [#/Area] 11-25 Abnormal [facility] h Glucose Ql (U) Normal Normal (<70) mg/dL [facility] Hemoglobin Ql (U) 1.0 mg/dL Abnormal Negative [facility] Interpretation and review of laboratory results Abnormal [facility] Ketones (U) [Mass/Vol] 100 mg/dL Abnormal Negative [facility] Leukocyte esterase Test strip Ql (U) 75 Abnormal Negative Krish/uL [facility] Mucus LM.HPF (Urine sed) [#/Area] Many Abnormal Negative /LPF [facility] Nitrite Ql (U) Negative Negative [facility] th pH (U) 6.0 [pH] 5.0 - 8.0 pH [facility] Protein (U) [Mass/Vol] 50 mg/dL Abnormal Negative [facility] RBC LM.HPF (Urine sed) [#/Area] /[HPF] Abnormal [facility] Specific gravity (U) [Rel density] 1.025 1.005 - 1.030 [facility] Urobilinogen (U) [Mass/Vol] 8 mg/dL Abnormal Normal (0-1) [facility] WBC LM.HPF (Urine sed) [#/Area] 11-25 Abnormal [facility] BASIC METABOLIC PANELon 09-0 -2023 Anion gap [Moles/Vol] 13 mmol/L Normal 3-13 [facility] Comment on above: Performed By: #### L AB99, LAB20, LAB15 ####Senior Sustainability Advisor: STERLING SERNA ([phone])[facility] ([facility])[address] Calcium [Mass/Vol] 8.6 mg/dL Normal 8.4-10.4 [facility] Comment on above: Performed By: #### L AB99, LAB20, LAB15 ####Senior Sustainability Advisor: STERLING SERNA ([phone])[facility] MARYVALESadiq (SBHL[facility])[address] Chloride [Moles/Vol] 100 mmol/L Normal 98-107 [facility] Comment on above: Performed By: #### L AB99, LAB20, LAB15 ####Senior Sustainability Advisor: STERLING SERNA ([phone])[facility] GENOA ([facility])[address] CO2 [Moles/Vol] 22 mmol/L Normal 22-30 [facility] Comment on above: Performed By: #### L AB99, LAB20, LAB15 ####Senior Sustainability Advisor: STERLING SERNA ([phone])[facility] ([facility])[address] Creatinine [Mass/Vol] 0.61 mg/dL Normal 0.52-1.04 [facility] Comment on above: Performed By: #### L AB99, LAB20, LAB15 ####Senior Sustainability Advisor: STERLING SERNA ([phone])[facility] ([facility])[address] GLOMERULAR FILTRATION RATE ML/MIN/1.73 SQ M.PREDICTED >90.0 Normal >60.0 [facility] Comment on above: Result Comment: Calc ulation based on the Chronic Kidney Disease Epidemiology Collaboration (CKD-EPI) equation refit without adjustment for race Performed By: #### L AB99, LAB20, LAB15 ####Senior Sustainability Advisor: STERLING SERNA ([phone])[facility] DAMIAN ([facility])[address] Glucose [Mass/Vol] 74 mg/dL Normal 70-100 [facility] Comment on above: Performed By: #### Barrett AB99, LAB20, LAB15 ####Senior Sustainability Advisor: STERLING SERNA ([phone])[facility] ([facility])[address] Potassium [Moles/Vol] 3.5 mmol/L Normal 3.5-5.1 [facility] Comment on above: Performed By: #### Barrett AB99, LAB20, LAB15 ####Senior Sustainability Advisor: STERLING SERNA ([phone])[facility] [place] ([facility])[address] Sodium [Moles/Vol] 135 mmol/L Normal 135-145 [facility] Comment on above: Performed By: #### Barrett AB99, LAB20, LAB15 ####Senior Sustainability Advisor: STERLING SERNA ([phone])[facility] ([facility])[address] Urea nitrogen [Mass/Vol] 5 mg/dL Low 7-17 [facility] Comment on above: Performed By: #### Barrett AB99, LAB20, LAB15 ####Senior Sustainability Advisor: STERLING SERNA ([phone])[facility] ([facility])[address] [place] [address] [place] BLOOD CULTUREon 10-26-2023 Bacteria identified Cx Nom (Bld) Normal [facility] Comment on above: Performed By: #### L [id number] ####Senior Sustainability Advisor: HENNY WADE ([phone])[facility] ([facility])[address] [place] [address] Basic metabolic 1998 panelon 09-03-2024 Anion gap [Moles/Vol] 13 mmol/L 3 - 13 mmol/L [facility] Calcium [Mass/Vol] 8.6 mg/dL 8.4 - 10. 4 mg/dL [facility] Chloride [Moles/Vol] 100 mmol/L 98 - 10 7 mmol/L [facility] CO2 [Moles/Vol] 22 mmol/L 22 - 30 mmol/L [facility] Creatinine [Mass/Vol] 0.61 mg/dL 0.52 - 1.04 mg/dL [facility] GFR/1.73 sq M.predicted (S/P/Bld) [Vol rate/Area] - PINF [facility] Comment on above: Calculation based on the Chronic Kidney Disease Epidemiology Collaboration (CKD-EPI) equation refit without adjustment for race Glucose [Mass/Vol] 74 mg/dL 70 - 100 mg/dL [facility] Potassium [Moles/Vol] 3.5 mmol/L 3.5 - 5.1 mmol/L [facility] Sodium [Moles/Vol] 135 mmol/L 135 - 145 mmol/L [facility] Urea nitrogen [Mass/Vol] 5 mg/dL Low 7 - 17 mg/dL [facility] CBC W Auto Differential pane l (Bld)Ordered By: Gem Puentes on 10-26-2023 Erythrocyte distribution width (RBC) [Ratio] 18.0 % High 11.5 - 15.0 % [facility] Hematocrit (Bld) [Volume fraction] 39.4 % 35.0 - 47.0 % [facility] Hemoglobin (Bld) [Mass/Vol] 12.5 g/dL 11.7 - 16.0 g/dL [facility] Interpretation and review of laboratory results Abnormal [facility] IPF 6 [facility] MCH (RBC) [Entitic mass] 22.6 pg Low 26.0 - 34.0 pg [facility] MCHC (RBC) [Mass/Vol] 31.7 % 30.5 - 36.0 % [facility] MCV (RBC) [Entitic vol] 71.4 fL Low 77.0 - 99.0 fL [facility] Platelet mean volume (Bld) [Entitic vol] [facility] Comment on above: Unable to obtain re sult. Platelets (Bld) [#/Vol] 176 10*3/uL 140 - 440 10*3/uL [facility] RBC (Bld) [#/Vol] 5.52 10*6/uL High 3.80 - 5.2 0 10*6/uL [facility] WBC (Bld) [#/Vol] 9.0 10*3/uL 3.6 - 10.7 10*3/uL [facility] CBC WITH AUTO DIFFERENTIALon 10-26-2023 Erythrocyte distribution width (RBC) [Ratio] 18.0 % High 11.5-15.0 [facility] Comment on above: Performed By: #### L [id number], [id number] ####Senior Sustainability Advisor: STERLING SERNA ([phone])[facility] ([facility])[address] Hematocrit (Bld) [Volume fraction] 39.4 % Normal 35.0-47.0 [facility] Comment on above: Performed By: #### L [id number], [id number] ####Senior Sustainability Advisor: STERLING SERNA ([phone])[facility] ([facility])[address] [place] [address] Hemoglobin (Bld) [Mass/Vol] 12.5 g/dL Normal 11.7-16.0 [facility] Comment on above: Performed By: #### L [id number], [id number] ####Senior Sustainability Advisor: STERLING SERNA ([phone])[facility] ([facility])[address] [place] [address] IPF 6 Normal [facility] Comment on above: Performed By: #### L [id number], [id number] ####Senior Sustainability Advisor: STERLING SERNA ([phone])[facility] ([facility])[address] MCH (RBC) [Entitic mass] 22.6 pg Low 26.0-34.0 [facility] Comment on above: Performed By: #### L [id number], [id number] ####Senior Sustainability Advisor: STERLING SERNA ([phone])[facility] ([facility])[address] MCHC 31.7 % Normal 30.5-36.0 [facility] Comment on above: Performed By: #### L [id number], [id number] ####Senior Sustainability Advisor: STERLING SERNA ([phone])[facility] [place] ([facility])[address] MCV (RBC) [Entitic vol] 71.4 fL Low 77.0-99.0 S [facility] Comment on above: Performed By: #### L [id number], [id number] ####Senior Sustainability Advisor: STERLING SERNA ([phone])[facility] [place] ([facility])[address] MPV Normal [facility] Comment on above: Result Comment: Saloni ble to obtain result. Performed By: #### L [id number], [id number] ####Senior Sustainability Advisor: STERLING SERNA ([phone])[facility] [place] ([facility])[address] Platelets (Bld) [#/Vol] 176 10*3/uL Normal 140-440 [facility] Comment on above: Performed By: #### L [id number], [id number] ####Senior Sustainability Advisor: STERLING SERNA ([phone])[facility] [place] ([facility])[address] RBC (Bld) [#/Vol] 5.52 10*6/uL High 3.80-5.20 [facility] Comment on above: Performed By: #### L [id number], [id number] ####Senior Sustainability Advisor: STERLING SERNA ([phone])[facility] [place] ([facility])[address] [place] [address] [place] WBC (Bld) [#/Vol] 9.0 10*3/uL Normal 3.6-10.7 [facility] Comment on above: Performed By: #### L [id number], [id number] ####Senior Sustainability Advisor: STERLING SERNA ([phone])[facility] [place] ([facility])[address] ED Provider Noteon ED Provider Note Normal [facility] HEPATIC FUNCTION PANELon Albumin [Mass/Vol] 3.5 g/dL Normal 3.5-5.0 [facility] Comment on above: Performed By: #### L AB99, LAB20, LAB15 ####Senior Sustainability Advisor: STERLING SERNA ([phone])[facility] [place] ([facility])[address] ALP [Catalytic activity/Vol] 595 U/L High 38-126 [facility] Comment on above: Performed By: #### L AB99, LAB20, LAB15 ####Senior Sustainability Advisor: STERLING SERNA ([phone])[facility] [place] ([facility])[address] ALT [Catalytic activity/Vol] 274 U/L High 0-34 [facility] Comment on above: Performed By: #### L AB99, LAB20, LAB15 ####Senior Sustainability Advisor: STERLING SERNA ([phone])[facility] [place] ([facility])[address] AST [Catalytic activity/Vol] 432 U/L High 15-46 [facility] Comment on above: Performed By: #### L AB99, LAB20, LAB15 ####Senior Sustainability Advisor: STERLING SERNA ([phone])[facility] [place] ([facility])[address] Bilirubin [Mass/Vol] 3.2 mg/dL High 0.2-1.3 [facility] Comment on above: Performed By: #### L AB99, LAB20, LAB15 ####Senior Sustainability Advisor: STERLING SERNA ([phone])[facility] [place] ([facility])[address] Bilirubin.indirect [Mass/Vol] 1.2 mg/dL High 0.0-0.3 [facility] Comment on above: Performed By: #### L AB99, LAB20, LAB15 ####Senior Sustainability Advisor: STERLING SERNA ([phone])[facility] [place] ([facility])[address] Protein [Mass/Vol] 7.2 g/dL Normal 6.3-8.2 [facility] Comment on above: Performed By: #### L AB99, LAB20, LAB15 ####Senior Sustainability Advisor: STERLING SERNA ([phone])[facility] [place] ([facility])[address] HEPATITIS PANEL, ACUTEon HCV Ab IA Ql Not detected Normal Not Detected [facility] Comment on above: Result Comment: Joselin ents with DETECTED Hepatitis C Ab results should have a new specimen submitted for supplemental testing with a Hepatitis C Quantitative RNA assay (viral load), if clinically indicated. Performed By: #### L [id number] ####Senior Sustainability Advisor: HENNY WADE ([phone])[facility] ([facility])[address] [place] [address] HEPATITIS A VIRUS AB, IGM Not detected Normal Not Detected [facility] Comment on above: Performed By: #### L AB551 ####Senior Sustainability Advisor: HENNY WADE ([phone])[facility])[address] [place] [address] HEPATITIS B VIRUS CORE IGM AB Not detected Normal Not Detected [facility] Comment on above: Performed By: #### L AB551 ####Senior Sustainability Advisor: HENNY WADE ([phone])[facility] ([facility])[address] [place] [address] HEPATITIS B VIRUS SURFACE AG Not detected Normal Not Detected [facility] Comment on above: Performed By: #### L [id number] ####Senior Sustainability Advisor: HENNY WADE ([phone])[facility] ([facility])[address] [place] [address] Hepatic function 2000 panelo n 10-26-2023 Albumin [Mass/Vol] 3.5 g/dL 3.5 - 5.0 g/dL [facility] ALP [Catalytic activity/Vol] 595 U/L High 38 - 126 U/L [facility] ALT [Catalytic activity/Vol] 274 U/L High 0 - 34 U/L [facility] AST [Catalytic activity/Vol] 432 U/L High 15 - 46 U/L [facility] Bilirubin [Mass/Vol] 3.2 mg/dL High 0.2 - 1 .3 mg/dL [facility] Bilirubin.conjugated [Mass/Vol] 1.2 mg/dL High 0.0 - 0.3 mg/dL [facility] Protein [Mass/Vol] 7.2 g/dL 6.3 - 8.2 g/dL [facility] LIPASEon 10-26-2023 Lipase [Catalytic activity/Vol] 57 U/L Normal 23-300 [facility] Comment on above: Performed By: #### L AB99, LAB20, LAB15 ####Senior Sustainability Advisor: STERLING SERNA ([phone])[facility] ([facility])[address] [place] [address] Laboratory - Chemistry and C hemistry - challengeon 10-26-2023 Lipase [Catalytic activity/Vol] 57 U/L 23 - 300 U/L [facility] Lipase [Catalytic activity/V ol]on 10-26-2023 Interpretation and review of laboratory results Normal [facility] MANUAL DIFFERENTIALon 2023 ANISOCYTOSIS PRESENCE IN BLOOD BY LIGHT MICROSCOPY Slight Abnormal (none) [facility] Comment on above: Performed By: #### L [id number], [id number] ####Senior Sustainability Advisor: STERLING SERNA ([phone])[facility] ([facility])[address] [place] [address] BAND NEUTROPHILS TOTAL PER COUNTED LEUKOCYTES BY MANUAL COUNT 11 Normal [facility] Comment on above: Performed By: #### L [id number], [id number] ####Senior Sustainability Advisor: STERLING SERNA ([phone])[facility] ([facility])[address] [place] [address] BANDS 1.0 10*3/uL High <=0.0 [facility] Comment on above: Performed By: #### L [id number], [id number] ####Senior Sustainability Advisor: STERLING SERNA ([phone])[facility] [place] ([facility])[address] CHYNA CELLS PRESENCE IN BLOOD BY LIGHT MICROSCOPY Slight Abnormal (none) [facility] Comment on above: Performed By: #### L [id number], [id number] ####Senior Sustainability Advisor: STERLING SERNA ([phone])[facility] (SB[facility])[address] CELLS COUNTED TOTAL (#) IN BLOOD 100 Normal [facility] Comment on above: Performed By: #### L [id number], [id number] ####Senior Sustainability Advisor: STERLING SERNA ([phone])[facility] [place] ([facility])[address] DACROCYTES PRESENCE IN BLOOD BY LIGHT MICROSCOPY Slight Abnormal (none) [facility] Comment on above: Performed By: #### L [id number], [id number] ####Senior Sustainability Advisor: STERLING SERNA ([phone])[facility] [place] ([facility])[address] DIFFERENTIAL METHOD Manual differential performed Normal [facility] Comment on above: Result Comment: SPENCER Miranda COMMENTS:Differential performed on albumin slide. Performed By: #### L [id number], [id number] ####Senior Sustainability Advisor: STERLING SERNA ([phone])[facility] [place] ([facility])[address] HYPOCHROMIA (PRESENCE) IN BLOOD BY LIGHT MICROSCOPY Slight Abnormal (none) [facility] Comment on above: Performed By: #### L [id number], [id number] ####Senior Sustainability Advisor: STERLING SERNA ([phone])[facility] [place] ([facility])[address] LEUKOCYTES (10*3/UL) NUCLEATED ERYTHROCYTE ADJUST 9.0 10*3/uL Normal 3.6-10.7 [facility] Comment on above: Performed By: #### L [id number], [id number] ####Senior Sustainability Advisor: STERLING GARNERSANDRA ([phone])[facility] [place] ([facility])[address] [place] [address] [place] LYMPHOCYTES (10*3/UL) IN BLOOD BY MANUAL COUNT 4.5 10*3/uL High 1.0-4.3 [facility] Comment on above: Performed By: #### L [id number], [id number] ####Senior Sustainability Advisor: STERLING STONEEDMUND ([phone])[facility] [place] ([facility])[address] LYMPHOCYTES TOTAL PER COUNTED LEUKOCYTES BY MANUAL COUNT 50 Normal [facility] Comment on above: Performed By: #### L [id number], [id number] ####Senior Sustainability Advisor: STERLING KAREEM ([phone])[facility] [place] ([facility])[address] LYMPHOCYTES VARIANT/100 LEUKOCYTES IN BLOOD 4 % High <=0 [facility] Comment on above: Performed By: #### L [id number], [id number] ####Senior Sustainability Advisor: STERLING KAREEM ([phone])[facility] [place] ([facility])[address] [place] [address] [place] LYMPHOCYTES/100 LEUKOCYTES IN BLOOD BY MANUAL COUNT 50 % High 15-45 [facility] Comment on above: Performed By: #### L [id number], [id number] ####Senior Sustainability Advisor: STERLING STONEEDMUND ([phone])[facility] [place] ([facility])[address] [place] [address] [place] MICROCYTES (PRESENCE) IN BLOOD BY LIGHT MICROSCOPY Slight Abnormal (none) [facility] Comment on above: Performed By: #### L [id number], [id number] ####Senior Sustainability Advisor: STERLING STONEEDMUND ([phone])[facility] [place] ([facility])[address] [place] [address] [place] MONOCYTES (10*3/UL) IN BLOOD BY MANUAL COUNT 0.7 10*3/uL Normal 0.0-0.9 [facility] Comment on above: Performed By: #### L [id number], [id number] ####Senior Sustainability Advisor: STERLING SERNA ([phone])[facility] [place] ([facility])[address] [place] [address] [place] MONOCYTES TOTAL PER COUNTED LEUKOCYTES BY MANUAL COUNT 8 Normal [facility] Comment on above: Performed By: #### L [id number], [id number] ####Senior Sustainability Advisor: STERLING GARNERSANDRA ([phone])[facility] [place] (SB[facility])[address] [place] [address] [place] MONOCYTES/100 LEUKOCYTES IN BLOOD BY MANUAL COUNT 8 % Normal 5-13 [facility] Comment on above: Performed By: #### L [id number], [id number] ####Senior Sustainability Advisor: STERLING GARNERSANDRA ([phone])[facility] ([facility])[address] NEUTROPHILS (SEGS+BANDS) (10*3/UL) BY MANUAL COUNT 3.4 10*3/uL Normal 1.8-7.0 [facility] Comment on above: Performed By: #### L [id number], [id number] ####Senior Sustainability Advisor: STERLING SERNA ([phone])[facility] [place] ([facility])[address] [place] [address] [place] NEUTROPHILS BAND FORM/100 LEUKOCYTES IN BLOOD BY MANUAL COUNT 11 % High <=0 [facility] Comment on above: Performed By: #### L [id number], [id number] ####Senior Sustainability Advisor: STERLING SERNA ([phone])[facility] [place] ([facility])[address] [place] [address] [place] NEUTROPHILS TOTAL PER COUNTED LEUKOCYTES BY MANUAL COUNT 27 Normal [facility] Comment on above: Performed By: #### L [id number], [id number] ####Senior Sustainability Advisor: STERLING SERNA ([phone])[facility] [place] ([facility])[address] [place] [address] [place] OVALOCYTES PRESENCE IN BLOOD BY LIGHT MICROSCOPY Slight Abnormal (none) [facility] Comment on above: Performed By: #### L [id number], [id number] ####Senior Sustainability Advisor: STERLING GARNERSANDRA ([phone])[facility] [place] ([facility])[address] PLATELETS GIANT PRESENCE IN BLOOD BY LIGHT MICROSCOPY Rare Abnormal (none) [facility] Comment on above: Performed By: #### L [id number], [id number] ####Senior Sustainability Advisor: STERLING STONEEDMUND ([phone])[facility] [place] ([facility])[address] POIKILOCYTOSIS (PRESENCE) IN BLOOD BY LIGHT MICROSCOPY Moderate Abnormal (none) [facility] Comment on above: Performed By: #### L [id number], [id number] ####Senior Sustainability Advisor: STERLING STONEEDMUND ([phone])[facility] [place] ([facility])[address] POLYCHROMASIA IN BLOOD BY LIGHT MICROSCOPY Slight Abnormal (none) [facility] Comment on above: Performed By: #### L [id number], [id number] ####Senior Sustainability Advisor: STERLING KAREEM ([phone])[facility] [place] ([facility])[address] [place] [address] [place] SEGEMENTED NEUTROPHILS/100 LEUKOCYTES BY MANUAL COUNT 27 % Low 38-82 [facility] Comment on above: Performed By: #### L [id number], [id number] ####Senior Sustainability Advisor: STERLING STONEEDMUND ([phone])[facility] [place] [address] [place] SEGMENTED NEUTROPHILS (10*3/UL)IN BLOOD BY MANUAL COUNT 3.4 10*3/uL Normal 1.8-7.5 [facility] Comment on above: Performed By: #### L [id number], [id number] ####Senior Sustainability Advisor: STERLING GARNERSANDRA ([phone])[facility] [place] ([facility])[address] [place] [address] [place] SMUDGE CELLS PRESENCE IN BLOOD BY LIGHT MICROSCOPY Present Abnormal (none) [facility] Comment on above: Performed By: #### L [id number], [id number] ####Senior Sustainability Advisor: STERLING SERNA ([phone])[facility] (SBHLAB)[address] VARIANT LYMPHOCYTES (10*3/UL) IN BLOOD BY MANUAL COUNT 0.4 10*3/uL High <=0.0 [facility] Comment on above: Performed By: #### L [id number], [id number] ####Senior Sustainability Advisor: STERLING SERNA ([phone])[facility] (SBHLAB)[address] VARIANT LYMPHOCYTES TOTAL PER COUNTED LEUKOCYTES BY MANUAL COUNT 4 Normal [facility] Comment on above: Performed By: #### L [id number], [id number] ####Senior Sustainability Advisor: STERLING SERNA ([phone])[facility] (SBHLAB)[address] No Panel Informationon 10-25 Interpretation and review of laboratory results Abnormal [facility] XR Chest Single viewon 10-25 No radiographic acute cardiopulmonary process. Report Dictated on Electronically Signed By: Peggy Arreaga MD Electronically Signed Date/Time: 10/26/2023 10:44 PM EDT [facility] Patient Name: ANNE MARIE BATES : 1995 Exam Date/Time: 10/26/2023 22:41 Procedure: XR CHEST 1 VIEW Ordering Provider: ALONZO AMY Reason For Exam: HYPERTENSION INDICATION: Hypertension. VIEWS: Chest portable-one image COMPARISON: 06/07/2023 FINDINGS: The trachea is midline. The heart is not enlarged. The right hemidiaphragm is elevated. The costophrenic angles are sharp. There is no confluent consolidation. [facility] Peggy Arreaga MD - 10/26/2023 Patient Name: ANNE MARIE PETERSON : 1995 Exam Date/Time: 10/26/2023 22:41 Procedure: XR CHEST 1 VIEW Ordering Provider: ALONZO AMY Reason For Exam: HYPERTENSION INDICATION: Hypertension. VIEWS: Chest portable-one image COMPARISON: 06/07/2023 FINDINGS: The trachea is midline. The heart is not enlarged. The right hemidiaphragm is elevated. The costophrenic angles are sharp. There is no confluent consolidation. IMPRESSION: No radiographic acute cardiopulmonary process. Report Dictated on Electronically Signed By: Peggy Arreaga MD Electronically Signed Date/Time: 10/26/2023 10:44 PM EDT [facility] Radiology Study observation (narrative) [facility] XR Chest Single viewOrdered By: Peggy Arreaga on 10-26-2023 [facility] NoWait Work Phone: BCIDon 10-25-2023 Acinetobacter lavonne-baumanii complex Not detected Normal [facility]ed [facility] Comment on above: Performed By: #### B ANT #### [place] [address] Bacteroides fragilis Not detected Normal Not Detected [facility] Comment on above: Performed By: #### B ANT #### [place] [address] BCID Comment See Comment Normal [facility] Comment on above: Result Comment: Anti microbial resistance can occur via multiple mechanisms. A Not Detected result for antimicrobial resistance gene(s) does not indicate antimicrobial susceptibility. Culture identification and susceptibility results to follow. If BCID panel was negative (Not Detected) for all targets, this does not exclude a blood stream infection. Our blood culture system detected growth. Culture identification and susceptibility testing (if appropriate) to follow. Performed By: #### B ANT #### [address] [address] [place] albicans Not detected Normal Not Detected [facility] ([place] Comment on above: Performed By: #### B ANT #### [address] [address] [place] auris Not detected Normal [facility] Detected [facility] Comment on above: Performed By: #### B ANT #### [place] [address] [place] glabrata Not detected Normal Not Detected [facility] ([place] Comment on above: Performed By: #### B ANT #### [place] [address] [place] krusei Not detected Normal Not Detected [facility] ([place] Comment on above: Performed By: #### B ANT #### [place] [address] [place] parapsilosis Not detected Normal Not Detected [facility] Comment on above: Performed By: #### B ANT #### [place] [address] [place] tropicalis Not detected Normal Not Detected [facility] ([place] Comment on above: Performed By: #### B ANT #### [place] [address] Cryptococcus neoformans-gattii Not detected Normal Not Detected [facility] Comment on above: Performed By: #### B ANT #### [place] [address] CTX-M (ESBL) Not Applicable Normal Not Detected [facility] ([place] Comment on above: Performed By: #### B ANT #### [place] [address] E. Coli Not detected Normal Not Detected [facility] Comment on above: Performed By: #### B ANT #### [place] [address] Enterobacter cloacae Complex Not detected Normal Not Detected [facility] Comment on above: Performed By: #### B ANT #### [place] [address] Enterobacterales Not detected Normal Not Detected [facility] ([place] Comment on above: Performed By: #### B ANT #### [place] [address] Enterococcus faecalis Not detected Normal Not Detected [facility] Comment on above: Performed By: #### B ANT #### [facility] [address] [place] [address] Enterococcus faecium Not detected Normal Not Detected [facility] Comment on above: Performed By: #### B ANT #### [facility] [address] [place] [address] Haemophilus influenzae Not detected Normal Not Detecte d [facility] Comment on above: Performed By: #### B ANT #### [address] [address] IMP (Carbapenemase) Not Applicable Normal Not Detected [facility] Comment on above: Performed By: #### B ANT #### [place] [address] Klebsiella aerogenes Not detected Normal Not Detected [facility] Comment on above: Performed By: #### B ANT #### [place] [address] Klebsiella oxytoca Not detected Normal Not Detected [facility] ([place] Comment on above: Performed By: #### B ANT #### [place] [address] Klebsiella pneumoniae group Not detected Normal Not Detected [facility] Comment on above: Performed By: #### B ANT #### [place] [address] KPC (Carbapenemase) Not Applicable Normal Not Detected [facility] Comment on above: Performed By: #### B ANT #### [place] [address] Listeria monocytogenes Not detected Normal Not Detecte d [facility] Comment on above: Performed By: #### B ANT #### [place] [address] MCR-1 (Colistin Resistance) Not Applicable Normal Not Detected [facility] [place] Comment on above: Performed By: #### B ANT #### [place] [id number] Mec A/C Detected Abnormal Not Detected [facility] Comment on above: Performed By: #### B ANT #### [place] [address] Mec A/C-MREJ (MRSA) Not Applicable Normal Not Detected [facility] Comment on above: Performed By: #### B ANT #### [facility] [address] [place] [address] NDM (Carbapenemase) Not Applicable Normal Not Detected [facility] Comment on above: Performed By: #### B ANT #### [facility] [address] [place] [address] Neisseria meningitidis (Encapsalated) Not detected Normal Not Detected [facility] Comment on above: Performed By: #### B ANT #### [facility] [address] [place] [address] OXA-48 like (Carbapenemase) Not Applicable Normal Not Detected [facility] Comment on above: Performed By: #### B ANT #### [place] [address] Proteus Not detected Normal Not Detected [facility] Comment on above: Performed By: #### B ANT #### [place] [address] Pseudomonas aeruginosa Not detected Normal Not Detecte d [facility] Comment on above: Performed By: #### B ANT #### [place] [address] S. agalactiae Org specific cx Ql (Vag fld) Not detected Normal Not Detected [facility] Comment on above: Performed By: #### B ANT #### [place] [address] Salmonella species Not detected Normal Not Detected [facility] ([place] Comment on above: Performed By: #### B ANT #### [address] [address] Serratia marcescens Not detected Normal Not Detected [facility] ([place] Comment on above: Performed By: #### B ANT #### [facility] [address] [place] [address] Staphylococcus Detected Abnormal Not Detected [facility] Comment on above: Performed By: #### B ANT #### [address] [address] Staphylococcus aureus Not detected Normal Not Detected [facility] Comment on above: Result Comment: If S taphylococcus aureus is Detected, an Infectious Disease physician consult is required on identification. Performed By: #### B ANT #### [place] [address] Staphylococcus epidermidis Detected Abnormal Not Detected [facility] Comment on above: Performed By: #### B ANT #### [place] [address] Staphylococcus lugdunensis Not detected Normal Not Detected [facility] Comment on above: Performed By: #### B ANT #### [place] [address] Stenotrophomonas maltophilia Not detected Normal Not Detected [facility] Comment on above: Performed By: #### B ANT #### [place] [address] Streptococcus Not detected Normal Not Detected [facility] Comment on above: Performed By: #### B ANT #### [place] [address] Streptococcus pneumoniae Not detected Normal Not Detected [facility] Comment on above: Performed By: #### B ANT #### [place] [address] Streptococcus pyogenes Not detected Normal Not Detecte d [facility] Comment on above: Performed By: #### B ANT #### [place] [address] Van A/B Not Applicable Normal Not Detected [facility] Comment on above: Performed By: #### B ANT #### [place] [address] VIM (Carbapenemase) Not Applicable Normal Not Detected [facility] Comment on above: Performed By: #### B ANT #### [place] [address] CBC + DIFFon 10-25-2023 BANDS 3 % Normal 0 - 5 [facility] Comment on above: Performed By: #### 2 05964 #### [facility],[address] [place] [address] Baso # 0.01 x10EE3/UL Normal 0.00 - 0.10 [facility] Comment on above: Performed By: #### 2 67686 #### [facility],[address] [place] [address] Basophils/100 WBC (Bld) 0.2 % Normal 0.0 - 2.0 [facility] Comment on above: Performed By: #### 2 70880 #### [facility],[address] [place] [address] CBC + DIFF Normal [facility] Comment on above: Result Comment: CBC- COMPLETE BLOOD COUNT Performed By: #### 2 98729 #### [facility],[address] [place] [address] CELL COUNT 100 Normal [facility] Comment on above: Performed By: #### 2 05250 #### [facility],[address] [place] [address]169 EO 1.0 % Normal 0.0 - 7.0 [facility] Comment on above: Performed By: #### 2 42942 #### [facility],[address] [place] [address]182 EO # 0.07 x10EE3/UL Normal 0.00 - 0.50 [facility] Comment on above: Performed By: #### 2 90719 #### [facility],[address] [place] [address] Eosinophils/100 WBC (Bld) 1.5 % Normal 0.0 - 7.0 [facility] Comment on above: Performed By: #### 2 80840 #### [facility],[address] [place] [address] Erythrocyte distribution width (RBC) [Ratio] 19.5 % High 12.0 - 15.6 [facility] Comment on above: Performed By: #### 2 40506 #### [facility],[address] [place] [address] Hematocrit (Bld) [Volume fraction] 42.5 % Normal 34.0 - 46.0 [facility] Comment on above: Performed By: #### 2 05561 #### [facility],[address] [place] [address] Hemoglobin (Bld) [Mass/Vol] 13.8 g/dL Normal 12.0 - 16.0 [facility] Comment on above: Performed By: #### 2 91384 #### [facility],[address] [place] [address] Lymph # 2.10 x10EE3/UL Normal 0.80 - 2.80 [facility] Comment on above: Performed By: #### 2 32397 #### [facility],[address] [place] [address] Lymphocytes/100 WBC (Bld) 45.1 % High 20.0 - 45.0 [facility] Comment on above: Performed By: #### 2 07516 #### [facility],[address] [place] [address] Lymphocytes/100 WBC (Bld) 36 % Normal 20 - 45 [facility] Comment on above: Performed By: #### 2 11159 #### [facility],[address] [place] [address]677 MANUAL DIFF SEE BELOW Normal [facility] Comment on above: Performed By: #### 2 33240 #### [facility],[address] [place] [address] 34483 MCH (RBC) [Entitic mass] 23 pg Low 27 - 33 [facility] Comment on above: Performed By: #### 2 05553 #### [facility],[address] [place] [address] MCHC 33 X10 3 Normal 32 - 36 [facility] Comment on above: Performed By: #### 2 10639 #### [facility],[address] [place], [place] [address] MCV (RBC) [Entitic vol] 71 fL Low 80 - 99 J l [facility] Comment on above: Performed By: #### 2 65561 #### [facility],[address] [place] [address] [place] # 0.55 x10EE3/UL Normal 0.20 - 1.00 [facility] Comment on above: Performed By: #### 2 74118 #### [facility],[address] [place] [address] MONOS 21 % High 0 - 10 [facility] Comment on above: Performed By: #### 2 06922 #### [facility],[address] [place] [address] MONOS % 11.9 % High 0.0 - 10.0 [facility] Comment on above: Performed By: #### 2 24142 #### [facility],[address] [place] [address] Morphology Girish (Bld) [Interp] N/A Normal [facility] Comment on above: Performed By: #### 2 93635 #### [facility],[address] [place] [address] Neut # 1.93 x10EE3/UL Normal 1.50 - 7.10 [facility] Comment on above: Performed By: #### 2 31998 #### [facility],[address] [place] [address] Neutrophils/100 WBC (Bld) 41.3 % Low 46.0 - 76.0 [facility] Comment on above: Performed By: #### 2 33720 #### [facility],[address] [place] [address] PLATELET 185 x10EE3/UL Normal 150 - 450 [facility] Comment on above: Performed By: #### 2 73172 #### [facility],[address] [place] [address] Platelet mean volume (Bld) [Entitic vol] 9.8 fL Normal 6.6 - 10.5 [facility] Comment on above: Result Comment: AUTO MATED DIFFERENTIAL Performed By: #### 2 87244 #### [facility],[address] [place] [address]168 RBC 5.98 x 10EE6/UL High 4.10 - 5.30 [facility] Comment on above: Performed By: #### 2 72649 #### [facility],[address] [place] [address] SEGS 39 % Low 46 - 76 [facility] Comment on above: Performed By: #### 2 41094 #### [facility],[address] [place] [address] WBC 4.7 x 10EE3/UL Normal 4.5 - 10.8 [facility] Comment on above: Performed By: #### 2 89912 #### [facility],[address] [place] [address]338 CMP with eGFRon 10-25-2023 AGE 28 years Normal [facility] Comment on above: Performed By: #### 2 69827 #### [facility],[address] [place] [address]237 Albumin [Mass/Vol] 2.8 g/dL Low 3.4 - 5.0 [facility] Comment on above: Performed By: #### 2 06633 #### [facility],[address] [place] [address] 14900 Albumin/Globulin [Mass ratio] 0.8 {ratio} Low 0.9 - 1.6 [facility] Comment on above: Performed By: #### 2 57792 #### [facility],[address] [place] [address] ALK PHOS 469 U/L High 46 - 116 [facility] Comment on above: Performed By: #### 2 06942 #### [facility],[address] [place] [address] 04850 ALT [Catalytic activity/Vol] 290 U/L High 16 - 63 [facility] Comment on above: Performed By: #### 2 64703 #### [facility],[address] [place] [address] 13234 Anion gap [Moles/Vol] 14 mmol/L Normal 10 - 20 [facility] Comment on above: Performed By: #### 2 85266 #### [facility],[address] [place] [address] 34581 AST [Catalytic activity/Vol] 462 U/L High 13 - 39 [facility] Comment on above: Performed By: #### 2 18379 #### [facility],[address] [place] [address] 24147 B/C RATIO 4 ratio Normal 0 - 30 [facility] Comment on above: Performed By: #### 2 79406 #### [facility],[address] [place] [address] 05933 Bilirubin [Mass/Vol] 2.3 mg/dL High 0.2 - 1.0 [facility] Comment on above: Performed By: #### 2 32953 #### [facility],[address] [place] [address] 12359 Calcium [Mass/Vol] 8.1 mg/dL Low 8.5 - 10.1 [facility] Comment on above: Performed By: #### 2 20791 #### [facility],[address] [place] [address] 36413 Chloride [Moles/Vol] 100 mmol/L Normal 98 - 107 [facility] Comment on above: Performed By: #### 2 59456 #### [facility],[address] [place] [address] 17829 CMP with eGFR Normal [facility] Comment on above: Result Comment: COMP REHENSIVE METABOLIC PANEL Performed By: #### 2 30151 #### [facility],[address] [place] [address] CO2 [Moles/Vol] 26.3 mmol/L Normal 21.0 - 32.0 [facility] Comment on above: Performed By: #### 2 52459 #### [facility],[address] [place], [place] [address] Creatinine [Mass/Vol] 0.73 mg/dL Normal 0.55 - 1.02 [facility] Comment on above: Performed By: #### 2 50741 #### [facility],[address] [place], [place] [address] GFR/1.73 sq M.predicted among non-blacks MDRD (S/P/Bld) [Vol rate/Area] mL/min/{1.73_m2} Normal 60 - 999 [facility] Comment on above: Performed By: #### 2 16456 #### [place] [address] Result Comment: ACCO RDING TO THE NATIONAL KIDNEY DISEASE EDUCATION PROGRAM(NKDE), A NORMAL eGFR IS A VALUE GREATER THAN OR EQUAL TO 60 ML/MIN/1.73 SQ METERS. CHRONIC KIDNEY DISEASE: <60mL/MIN/1.73 SQ METERS KIDNEY FAILURE: <15mL/MIN/1.73 SQ METERS THIS TEST SHOULD ONLY BE USED FOR PATIENTS 18 YEARS OF AGE AND OLDER. Globulin (S) [Mass/Vol] 3.7 g/dL Normal 1.5 - 3.8 [facility] Comment on above: Performed By: #### 2 51104 #### [facility],[address] [place] [address] 07256 Glucose [Mass/Vol] 77 mg/dL Normal 74 - 106 [facility] Comment on above: Performed By: #### 2 18563 #### [place] [id number] Potassium [Moles/Vol] 3.5 mmol/L Normal 3.5 - 5.1 [facility] Comment on above: Performed By: #### 2 80412 #### [place] [address],[place] [address] Protein [Mass/Vol] 6.5 g/dL Normal 6.4 - 8.2 [facility] Comment on above: Performed By: #### 2 13638 #### [facility],[address] [place] [address] 89007 Sodium [Moles/Vol] 137 mmol/L Normal 136 - 145 [facility] Comment on above: Performed By: #### 2 34242 #### [facility],[address] [place] [address] 65106 Urea nitrogen [Mass/Vol] 3 mg/dL Low 7 - 18 [facility] Comment on above: Performed By: #### 2 85876 #### [facility],[address] [place] [address] ABDOMEN/PELVIS Won 2023 CT ABDOMEN/PELVIS W [place] [address] Patient: ANNE MARIE PETERSON Phone#: : 1995 Age: 28 Gender: F Pt. Type: ER Account: [id number] Location: [facility] Ordering: ANUP LARIOS Exam Date: 10/25/2023/16:50 Family Phys: XENIA DONA ANA Charge Code: [id number] Physician: Walton Order #: [id number] Dose#: [id number] PROCEDURE: CT ABDOMEN/PELVIS WITH CONTRAST COMPARISON: [facility], CT, ABDOMEN/PELVIS W CON, 05/18/2023, 7:05. INDICATIONS: Fever. TECHNIQUE: After obtaining the patient's consent, CT images were created with non-ionic intravenous contrast material. All CT scans at this facility use dose modulation, iterative reconstruction, and/or weight based dosing when appropriate to reduce radiation dose to as low as reasonably achievable. IV CONTRAST: Omnipaque 350,80ml TOTAL DOSE: 50.40 CTDIvol(mGy) FINDINGS: LIVER: Fatty changes of the liver are present. There is no evidence of focal abnormality. BILIARY: Normal. No visible dilatation or calcification. PANCREAS: Mild peripancreatic fat stranding at the head. Correlate early pancreatitis. SPLEEN: Splenules are present. No enlargement or focal lesion. KIDNEYS: Normal. No mass, obstruction, or calcification. ADRENALS: Normal. No mass or enlargement. AORTA/VASCULAR: Normal. No aneurysm or dissection. RETROPERITONEUM: Normal. No mass or adenopathy. BOWEL/MESENTERY: Surgical suture is present at the stomach.. No visible mass, obstruction, or bowel wall thickening. ABDOMINAL WALL: Normal. No mass or hernia. URINARY BLADDER: Normal. No visible focal wall thickening, lesion, or calculus. PELVIC NODES: Normal. No adenopathy. PELVIC ORGANS: An IUD is present. No visible mass. Pelvic organs appropriate for patient age. BONES: Normal. No bony lesion or fracture. LUNG BASES: Normal. No visible pulmonary or pleural disease. OTHER: Negative. Continued Report - Page 2 of 2 Patient: ANNE MARIE PETERSON Phone#: : 1995 Age: 28 Gender: F Pt. Type: ER Account: [id number] Location: 052 Ordering: ANUP LARIOS Exam Date: 10/25/2023/16:50 Family Phys: XENIA LANE Charge Code: [id number] Physician: Walton Order #: [id number] Dose#: [id number] CONCLUSION: 1. Possible early pancreatitis of the head. Correlate lipase/amylase levels. Dictated by: Astrid Johnson MD on 10/25/2023 at 18:52 Approved by: Astrid Johnson MD on 10/25/2023 at 18:57 Normal [facility] CULTURE BLOOD [TORY]on Microscopic examination of blood, culture CULTURE BLOOD [TORY] _BLOOD CULTURE_ GO TO [facility] REPORTS AND ATTACHMENTS FOR SCANNED REPORT 11/01/23.0900.TLJ.COMPL ETE Normal [facility] Comment on above: Performed By: #### 2 13657 #### [facility],[address] [place] [address] Microscopic examination of blood, culture CULTURE BLOOD [TORY] _BLOOD CULTURE_ GO TO [facility] REPORTS AND ATTACHMENTS FOR SCANNED REPORT 11/01/23.0858.TLJ.COMPL ETE Normal [facility] Comment on above: Performed By: #### 2 43724 #### [facility],[address] [place] [address] LACTATEon 10-25-2023 Lactate [Moles/Vol] 1.2 mmol/L Normal 0.4 - 2.0 [facility] Comment on above: Performed By: #### 2 11100 #### [facility],[address] [place] [address] SERUM QUALon 10-24 EXTERNAL QC DONE? YES Normal [facility] Comment on above: Performed By: #### 2 39987 #### [facility],[address] [place] [address] INTERNAL QC PASS Normal [facility] Comment on above: Performed By: #### 2 33072 #### [facility],[address] [place] [address] SER Negative Normal NEGATIVE [facility] Comment on above: Performed By: #### 2 49202 #### [facility],[address] [place] [address] CBC + DIFFon 10-24-2023 Baso # 0.00 x10EE3/UL Normal 0.00 - 0.10 [facility] Comment on above: Performed By: #### 2 58115 #### [facility],[address] [place] [address] Basophils/100 WBC (Bld) 0.1 % Normal 0.0 - 2.0 [facility] Comment on above: Performed By: #### 2 65685 #### [facility],[address] [place] [address] CBC + DIFF Normal [facility] Comment on above: Result Comment: CBC- COMPLETE BLOOD COUNT Performed By: #### 2 33089 #### [facility],[address] [place], [place] [address] EO # 0.03 x10EE3/UL Normal 0.00 - 0.50 [facility] Comment on above: Performed By: #### 2 68261 #### [facility],[address] [place] [address] 78601 Eosinophils/100 WBC (Bld) 0.7 % Normal 0.0 - 7.0 [facility] Comment on above: Performed By: #### 2 38934 #### [facility],[address] [place] [address] Erythrocyte distribution width (RBC) [Ratio] 17.9 % High 12.0 - 15.6 [facility] Comment on above: Performed By: #### 2 78358 #### [facility],[address] [place] [address] Hematocrit (Bld) [Volume fraction] 40.0 % Normal 34.0 - 46.0 [facility] Comment on above: Performed By: #### 2 56118 #### [facility],[address] [place] [address] Hemoglobin (Bld) [Mass/Vol] 13.5 g/dL Normal 12.0 - 16.0 [facility] Comment on above: Performed By: #### 2 77772 #### [facility],[address] [place] [address] 93419 Lymph # 1.64 x10EE3/UL Normal 0.80 - 2.80 [facility] Comment on above: Performed By: #### 2 65781 #### [facility],[address] [place] [address] 49444 Lymphocytes/100 WBC (Bld) 43.5 % Normal 20.0 - 45.0 [facility] Comment on above: Performed By: #### 2 63527 #### [facility],[address] [place], [place] [id number] MANUAL DIFF N/A Normal [facility] Comment on above: Performed By: #### 2 63675 #### [facility],[address] [place] [address] 04563 MCH (RBC) [Entitic mass] 24 pg Low 27 - 33 [facility] Comment on above: Performed By: #### 2 65798 #### [facility],[address] [place] [address] MCHC 34 X10 3 Normal 32 - 36 [facility] Comment on above: Performed By: #### 2 87297 #### [facility],[address] [place], [place] [id number] MCV (RBC) [Entitic vol] 71 fL Low 80 - 99 [facility] Comment on above: Performed By: #### 2 40088 #### [facility],[address] [place] [address] [place] # 0.37 x10EE3/UL Normal 0.20 - 1.00 [facility] Comment on above: Performed By: #### 2 13997 #### [facility],[address] [place], [place] [id number] MONOS % 9.8 % Normal 0.0 - 10.0 [facility] Comment on above: Performed By: #### 2 53709 #### [facility],[address] [place], [place] [id number] Morphology Girish (Bld) [Interp] N/A Normal [facility] Comment on above: Performed By: #### 2 65368 #### [facility],[address] [place] [address] Neut # 1.73 x10EE3/UL Normal 1.50 - 7.10 [facility] Comment on above: Performed By: #### 2 74790 #### [facility],[address] [place], [place] [id number] Neutrophils/100 WBC (Bld) 45.9 % Low 46.0 - 76.0 [facility] Comment on above: Performed By: #### 2 43111 #### [facility],[address] [place] [address] 15983 PLATELET 202 x10EE3/UL Normal 150 - 450 [facility] Comment on above: Performed By: #### 2 64096 #### [facility],[address] [place] [address] 76077 Platelet mean volume (Bld) [Entitic vol] 9.6 fL Normal 6.6 - 10.5 [facility] Comment on above: Result Comment: AUTO MATED DIFFERENTIAL Performed By: #### 2 53803 #### [facility],[address] [place] [address] 18214 RBC 5.64 x 10EE6/UL High 4.10 - 5.30 [facility] Comment on above: Performed By: #### 2 84440 #### [facility],[address] [place] [address] 39368 WBC 3.8 x 10EE3/UL Low 4.5 - 10.8 [facility] Comment on above: Performed By: #### 2 70627 #### [facility],[address] [place] [address] 83819 CMP with eGFRon 10-24-2023 AGE 28 years Normal [facility] Comment on above: Performed By: #### 2 05324 #### [facility],[address] [place] [address] 32409 Albumin [Mass/Vol] 3.0 g/dL Low 3.4 - 5.0 [facility] Comment on above: Performed By: #### 2 91042 #### [facility],[address] [place] [address] 46391 Albumin/Globulin [Mass ratio] 0.7 {ratio} Low 0.9 - 1.6 [facility] Comment on above: Performed By: #### 2 63166 #### [facility],[address] [place] [address] 35986 ALK PHOS 271 U/L High 46 - 116 [facility] Comment on above: Performed By: #### 2 73002 #### [facility],[address] [place] [address] 04729 ALT [Catalytic activity/Vol] 208 U/L High 16 - 63 [facility] Comment on above: Performed By: #### 2 38291 #### [facility],[address] [place] [address] 09399 Anion gap [Moles/Vol] 14 mmol/L Normal 10 - 20 [facility] Comment on above: Performed By: #### 2 88123 #### [facility],[address] [place] [address] 41976 AST [Catalytic activity/Vol] 517 U/L High 13 - 39 [facility] Comment on above: Performed By: #### 2 32762 #### [facility],[address] [place] [address] 00751 B/C RATIO 9 ratio Normal 0 - 30 [facility] Comment on above: Performed By: #### 2 10872 #### [facility],[address] [place] [address] 56512 Bilirubin [Mass/Vol] 1.6 mg/dL High 0.2 - 1.0 [facility] Comment on above: Performed By: #### 2 14884 #### [facility],[address] [place] [address] 73961 Calcium [Mass/Vol] 8.5 mg/dL Normal 8.5 - 10.1 [facility] Comment on above: Performed By: #### 2 23400 #### [facility],[address] [place] [address] 03151 Chloride [Moles/Vol] 99 mmol/L Normal 98 - 107 [facility] Comment on above: Performed By: #### 2 96897 #### [facility],[address] [place] [address] 71488 CMP with eGFR Normal [facility] Comment on above: Result Comment: COMP REHENSIVE METABOLIC PANEL Performed By: #### 2 97714 #### [facility],[address] [place] [address] 39246 CO2 [Moles/Vol] 28.3 mmol/L Normal 21.0 - 32.0 [facility] Comment on above: Performed By: #### 2 19936 #### [facility],[address] [place] [address] 65286 Creatinine [Mass/Vol] 0.81 mg/dL Normal 0.55 - 1.02 [facility] Comment on above: Performed By: #### 2 88637 #### [facility],[address] [place] [address] 40342 GFR/1.73 sq M.predicted among non-blacks MDRD (S/P/Bld) [Vol rate/Area] mL/min/{1.73_m2} Normal 60 - 999 [facility] Comment on above: Performed By: #### 2 46312 #### [place] [address] Result Comment: ACCO RDING TO THE NATIONAL KIDNEY DISEASE EDUCATION PROGRAM(NKDE), A NORMAL eGFR IS A VALUE GREATER THAN OR EQUAL TO 60 ML/MIN/1.73 SQ METERS. CHRONIC KIDNEY DISEASE: <60mL/MIN/1.73 SQ METERS KIDNEY FAILURE: <15mL/MIN/1.73 SQ METERS THIS TEST SHOULD ONLY BE USED FOR PATIENTS 18 YEARS OF AGE AND OLDER. Globulin (S) [Mass/Vol] 4.4 g/dL High 1.5 - 3.8 [facility] Comment on above: Performed By: #### 2 39418 #### [facility],[address] [place] [address] 70663 Glucose [Mass/Vol] 86 mg/dL Normal 74 - 106 [facility] Comment on above: Performed By: #### 2 77978 #### [address] [address] Potassium [Moles/Vol] 3.3 mmol/L Low 3.5 - 5.1 [facility] Comment on above: Performed By: #### 2 06765 #### [facility],[address] [place] [address] 93407 Protein [Mass/Vol] 7.4 g/dL Normal 6.4 - 8.2 [facility] Comment on above: Performed By: #### 2 86297 #### [facility],[address] [place] [address] 07302 Sodium [Moles/Vol] 138 mmol/L Normal 136 - 145 [facility] Comment on above: Performed By: #### 2 94465 #### [facility],[address] [place] [address] 37292 Urea nitrogen [Mass/Vol] 7 mg/dL Normal 7 - 18 [facility] Comment on above: Performed By: #### 2 80303 #### [facility],[address] [place], [place] [id number] CORONAVIRUS (SARS) ANTIGEN T ESTon 10-24-2023 EXTERNAL QC DONE? YES Normal [facility] Comment on above: Performed By: #### 2 85825 #### [facility],[address] [place] [address] INTERNAL CONTROL PASS Normal [facility] Comment on above: Performed By: #### 2 10572 #### [facility],[address] [place] [address] 85358 SARS ANTIGEN Negative Normal NORMAL: NEGATIVE [facility] Comment on above: Performed By: #### 2 59260 #### [facility],[address] [place], [place] [id number] SEND TO IC? NO Normal [facility] Comment on above: Result Comment: SARS -CoV-2 THIS TEST IS BEING USED UNDER THE FDA EUA PROCEDURE. THIS ASSAY HAS BEEN VALIDATED AT [facility] FOR USE WITH NASAL AND NASOPHARYNGEAL SWAB SPECIMENS. INTERPRETIVE DATA TEST RESULTS SHOULD ALWAYS BE CONSIDERED IN THE CONTEXT OF CLINICAL OBSERVATIONS AND EPIDEMIOLOGICAL DATA IN MAKING FINAL DIAGNOSIS AND PATIENT MANAGEMENT DECISIONS. PATIENT MANAGEMENT SHOULD FOLLOW CURRENT CDC GUIDELINES. THE HARRIET SARS ANTIGEN GENARO DOES NOT DIFFERENTIATE BETWEEN SARS-CoV & SARS-CoV-2. A POSITIVE TEST RESULT INDICATES THE PRESENCE OF SARS-CoV-2 NUCLEOCAPSID PROTEIN ANTIGEN, AND THE PATIENT IS INFECTED WITH THE VIRUS AND PRESUMED TO BE CONTAGIOUS. A NEGATIVE TEST RESULT FOR THIS TEST MEANS THAT SARS-CoV-2 NUCLEOCAPSID PROTEIN ANTIGEN WAS NOT PRESENT IN THE SPECIMEN ABOVE THE LIMIT OF DETECTION. HOWEVER, A NEGATIVE RESULT DOES NOT RULE OUT COVID-19 AND SHOULD NOT BE USED THE SOLE BASIS FOR TREATMENT OR PATIENT MANAGEMENT DECISIONS. A NEGATIVE RESULT DOES NOT EXCLUDE THE POSSIBILITY OF COVID-19. NEGATIVE RESULTS, FROM PATIENTS WITH SYMPTOM ONSET BEYOND FIVE DAYS, SHOULD BE TREATED PRESUMPTIVE AND CONFIRMATION WITH A MOLECULAR ASSAY, IF NECESSARY, FOR PATIENT MANAGEMENT, MAY BE PERFORMED. WHEN DIAGNOSTIC TESTING IS NEGATIVE, THE POSSIBLILTY OF A FALSE NEGATIVE RESULT SHOULD BE CONSIDERED IN THE CONTEXT OF A PATIENT'S RECENT EXPOSURES AND THE PRESENCE OF CLINICAL SIGNS AND SYMPTOMS CONSISTENT WITH COVID-19. THE POSSIBILITY OF A FALSE NEGATIVE RESULT SHOULD ESPECIALLY BE CONSIDERED IF THE PATIENT'S RECENT EXPOSURES OR CLINICAL PRESENTATION INDICATE THAT COVID-19 IS LIKELY, AND DIAGNOSTIC TESTS FOR OTHER CAUSES OF ILLNESS (e.g., OTHER RESPIRATORY ILLNESS) ARE NEGATIVE. IF COVID-19 IS STILL SUSPECTED BASED ON EXPOSURE HISTORY TOGETHER WITH OTHER CLINICAL FINDINGS, RE-TESTING SHOULD BE CONSIDERED BY HEALTHCARE PROVIDERS IN CONSULTATION WITH PUBLIC HEALTH AUTHORITIES. Performed By: #### 2 59024 #### [place] [id number] CULTURE BLOOD [TORY]on Microscopic examination of blood, culture CULTURE BLOOD [TORY] _BLOOD CULTURE_ GO TO [facility] REPORTS AND ATTACHMENTS FOR SCANNED REPORT 11/01/23.1100.TLJ.[facility] Comment on above: Performed By: #### 2 03151 #### [place] [id number] Microscopic examination of blood, culture CULTURE BLOOD [TORY] _BLOOD CULTURE_ GO TO [facility] REPORTS AND ATTACHMENTS FOR SCANNED REPORT 10/27/23.0952.DNP.[facility] Comment on above: Performed By: #### 2 00896 #### [place] [address] INFLUENZA VIRUS RAPID A/Bon 10-24-2023 INFLUENZA VIRUS RAPID A/B INFLUENZA A NEGATIVE INFLUENZA B NEGATIVE INTERNAL NEG QC PASS INTERNAL POS QC PASS EXTERNAL QC DONE? YES SEND TO IC? NO A NEGATIVE TEST RESULT DOES NOT EXCLUDE INFECTION WITH INFLUENZA A OR B. THEREFORE, THE RESULTS OBTAINED FROM THIS FLU TEST SHOULD BE USED IN CONJUCTION WITH CLINICAL FINDINGS TO MAKE AN ACCURATE DIAGNOSIS. A POSITIVE RESULT DOES NOT RULE OUT CO-INFECTIONS WITH OTHER PATHOGENS OR IDENTIFY ANY SPECIFIC INFLUENZA A VIRUS SUBTYPE.CO-INFECTION WITH INFLUENZA A AND B IS RARE. IT IS RECOMMENDED THAT DUAL POSITIVE RESULTS BE CONFIRMED BY VIRAL CULTURE OR AN FDA-CLEARED INFLUENZA A AND B MOLECULAR ASSAY. INDIVIDUALS WHO HAVE RECEIVED NASALLY ADMINISTERED INFLUENZA A VACCINE MAY TEST POSITIVE IN COMMERCIALLY AVAILABLE INFLUENZA RAPID DIAGNOSTIC TESTS FOR UP TO THREE DAYS. RESULT CRITICAL? NO Normal [facility] Comment on above: Performed By: #### 2 01736 #### [place] [address] LACTATEon 10-24-2023 Lactate [Moles/Vol] 1.1 mmol/L Normal 0.4 - 2.0 [facility] Comment on above: Performed By: #### 2 36689 #### [place] [address] LIPASEon 10-24-2023 Lipase [Catalytic activity/Vol] 13.0 U/L Low 15.0 - 78.0 [facility] Comment on above: Result Comment: *PLE ASE NOTE THAT RANGES FOR LIPASE HAVE CHANGED OF 02/19/23 DUE TO AN ASSAY UPDATE BY THE BREAD DUMPER.THE NEW ASSAY RANGE IS 6-250 U/L, WITH A REFERENCE RANGE OF 16-77 U/L. Performed By: #### 2 39249 #### [place] [address] URINALYSISon 10-24-2023 Amorphous NONE Normal [facility] Comment on above: Performed By: #### 2 04788 #### [place] [address] Bacteria 4+ Normal [facility] Comment on above: Performed By: #### 2 60706 #### [facility],[address] [place] [address] 11442 Bilirubin Ql (U) 3 Abnormal NORMAL: NEGATIVE [facility] Comment on above: Performed By: #### 2 25118 #### [facility],[address] [place] [address] 79578 Casts NONE Normal [facility] Comment on above: Performed By: #### 2 70456 #### [facility],[address] [place] [address] 71254 Clarity (U) sl.cloudy Normal NORMAL: CLEAR [facility] Comment on above: Performed By: #### 2 75389 #### [facility],[address] [place] [address] 50980 Color (U) brown Normal NORMAL: YELLOW [facility] Comment on above: Performed By: #### 2 05913 #### [facility],[address] [place] [address] 10968 Crystals LM Nom (Urine sed) NONE Normal [facility] Comment on above: Performed By: #### 2 23907 #### [facility],[address] [place] [address] 43849 Epi Cells MODERATE Normal [facility] Comment on above: Performed By: #### 2 43403 #### [facility],[address] [place] [address] 24329 Glucose Ql (U) NORM Normal NORMAL: NORMAL [facility] Comment on above: Performed By: #### 2 45133 #### [facility],[address] [place] [address] 81030 Hemoglobin Ql (U) 50 Abnormal NORMAL: NEGATIVE [facility] Comment on above: Performed By: #### 2 31816 #### [facility],[address] [place] [address] 57974 Ketone 50 Abnormal NORMAL: NEGATIVE [facility] Comment on above: Performed By: #### 2 16123 #### [facility],[address] [place] [address] Leukocytes 500 Abnormal NORMAL: NEGATIVE [facility] Comment on above: Performed By: #### 2 02723 #### [facility],[address] [place] [address] Mucous NONE Normal [facility] Comment on above: Performed By: #### 2 59375 #### [facility],[address] [place] [address] Nitrite Ql (U) Positive Normal NORMAL: NEGATIVE [facility] Comment on above: Performed By: #### 2 44410 #### [facility],[address] [place] [address] pH (U) 6 [pH] Normal NORMAL: 5.0-8.0 [facility] Comment on above: Performed By: #### 2 29196 #### [facility],[address] [place] [address] Protein Ql (U) 30 Abnormal NORMAL: NEGATIVE [facility] Comment on above: Performed By: #### 2 89268 #### [facility],[address] [place] [address] Rbc 5-10 Normal 0-3/hpf [facility] Comment on above: Performed By: #### 2 05036 #### [facility],[address] [place] [address] Sp [place] 1.015 Normal NORMAL: 1.010-1.030 [facility] Comment on above: Performed By: #### 2 84038 #### [facility],[address] [place] [address] Specimen Type UNSPECIFIED Normal [facility] Comment on above: Performed By: #### 2 39149 #### [facility],[address] [place] [address] Urinalysis dipstick W Reflex Microscopic panel (U) SEE BELOW Normal [facility] Comment on above: Result Comment: MICR OSCOPIC Performed By: #### 2 80480 #### [facility],[address] [place] [address],[facility] [address] Urobilinog 12 Abnormal NORMAL: NORMAL [facility] Comment on above: Performed By: #### 2 59028 #### [facility],[address] [place] [address],[facility] [address] Wbc 26-50 Normal 0-5/hpf [facility] Comment on above: Performed By: #### 2 09039 #### [facility],[address] [place] [address],[facility] [address] Yeast NONE Normal [facility] Comment on above: Performed By: #### 2 13203 #### [facility],[address] [place] [address],[facility] [address] CORONAVIRUS PCR - [facility] 10-22-2023 SARS-CoV-2 (COVID-19) RNA [place]+probe Ql (Unsp spec) Negative Normal NORMAL: NEGATIVE [facility] Comment on above: Performed By: #### 2 32283 #### [facility],[address] [place] [address] 75122 SEND TO IC? NO Normal [facility] Comment on above: Result Comment: RESU LTS FAXED TO INFECTION CONTROL. SARS-CoV-2 THIS TEST IS BEING USED UNDER THE FDA EUA PROCEDURE. THIS ASSAY HAS BEEN VALIDATED IN THE [facility] FOR USE WITH NASOPHARYNGEAL SPECIMENS IN [facility]. INTERPRETIVE DATA LABORATORY TEST RESULTS SHOULD ALWAYS BE CONSIDERED IN THE CONTEXT OF CLINICAL OBSERVATIONS AND EPIDEMIOLOGICAL DATA IN MAKING FINAL DIAGNOSIS AND PATIENT MANAGEMENT DECISIONS. PATIENT MANAGEMENT SHOULD FOLLOW CURRENT CDC GUIDELINES. A POSITIVE TEST RESULT FOR COVID-19 INDICATES THAT RNA FROM SARS-CoV-2 WAS DETECTED, AND THE PATIENT IS INFECTED WITH THE VIRUS AND PRESUMED TO BE CONTAGIOUS. A NEGATIVE TEST RESULT FOR THIS TEST MEANS THAT SARS-CoV-2 RNA WAS NOT PRESENT IN THE SPECIMEN ABOVE THE LIMIT OF DETECTION. HOWEVER, A NEGATVIE RESULT DOES NOT RULE OUT COVID-19 AND SHOULD NOT BE USED THE SOLE BASIS FOR TREATMENT OR PATIENT MANAGEMENT DECISIONS. A NEGATIVE RESULT DOES NOT EXCLUDE THE POSSIBILITY OF COVID-19. WHEN DIAGNOSTIC TESTING IS NEGATIVE, THE POSSIBLILTY OF A FALSE NEGATIVE RESULT SHOULD BE CONSIDERED IN THE CONTEXT OF A PATIENT'S RECENT EXPOSURES AND THE PRESENCE OF CLINICAL SIGNS AND SYMPTOMS CONSISTENT WITH COVID-19. THE POSSIBILITY OF A FALSE NEGATIVE RESULT SHOULD ESPECIALLY BE CONSIDERED IF THE PATIENT'S RECENT EXPOSURES OR CLINICAL PRESENTATION INDICATE THAT COVID-19 IS LIKELY, AND DIAGNOSTIC TESTS FOR OTHER CAUSES OF ILLNESS (e.g., OTHER RESPIRATORY ILLNESS) ARE NEGATIVE. IF COVID-19 IS STILL SUSPECTED BASED ON EXPOSURE HISTORY TOGETHER WITH OTHER CLINICAL FINDINGS, RE-TESTED SHOULD BE CONSIDERED BY HEALTHCARE PROVIDERS IN CONSULTATION WITH PUBLIC HEALTH AUTHORITIES. Performed By: #### 2 [id number] #### Ernst [facility],[address] [place] [address] Result Comment: THIS ASSAY HAS BEEN VALIDATED IN THE [facility] FOR USE WITH NASOPHARYNGEAL SPECIMENS IN [facility]. INTERPRETIVE DATA THE [employer] RESPIRATORY PATHOGENS FLEX NUCLEIC ACID TEST (RP FLEX) IS A MULTIPLEXED QUALITATIVE TEST INTENDED FOR THE SIMULTANEOUS DETECTION AND IDENTIFICATION OF MULTIPLE VIRAL AND BACTERIAL NUCLEIC ACIDS IN NASOPHARYNGEAL SWABS (LOT ASSOCIATE) OBTAINED FROM INDIVIDUALS SUSPECTED OF RESPIRATORY TRACT INFECTION. THE TEST IS PERFORMED ON THE AUTOMATED [employer] SYSTEM UTILIZING REVERSE WHARF TALLY CLERK (RT), POLYMERASE CHAIN REACTION (PCR), AND MICROARRAY HYBRIDIZATION TO DETECT GENE SEQUENCES OF THE FOLLOWING ORGANISM TYPES AND SUBTYPES: ADENOVIRUS, HUMAN METAPNEUMOVIRUS,INFLUENZA A,INFLUENZA A (SUBTYPE H1), INFLUENZA A (SUBTYPE H3), INFLUENZA B,PARAINFLUENZA 1,PARAINFLUENZA 2, PARAINFLUENZA 3, PARAINFLUENZA 4, RESPIRATORY SYNCYTIAL VIRUS A,RESPIRATORY SYNCYTIAL VIRUS B, RHINOVIRUS,BORDETELLA PARAPERTUSSIS/BRONCHISEPTICA,BORDETELLA HOLMESII,AND BORDETELLA PERTUSSIS. DETECTING AND IDENTIFYING SPECIFIC VIRAL AND BACTERIAL NUCLEIC ACIDS FROM INDIVIDUALS EXHIBITING SIGNS AND SYMPTOMS OF RESPIRATORY INFECTION AIDS IN THE DIAGNOSIS OF RESPIRATORY INFECTION, IF USED IN CONJUNCTION WITH OTHER CLINICAL AND LABORATORY FINDINGS. THE RESULTS OF THIS TEST SHOULD NOT BE USED THE SOLE BASIS FOR DIAGNOSIS, TREATMENT, OR PATIENT MANAGEMENT DECISIONS. NEGATIVE RESULTS IN THE PRESENCE OF A RESPIRATORY ILLNESS DO NOT PRECLUDE RESPIRATORY INFECTION AND MAY BE DUE TO INFECTION WITH PATHOGENS THAT ARE NOT DETECTED BY THIS TEST OR LOWER RESPIRATORY TRACT INFECTION THAT IS NOT DETECTED BY AN LOT ASSOCIATE SPECIMEN. CONVERSELY, POSITIVE RESULTS DO NOT RULE-OUT INFECTION OR CO-INFECTION WITH ORGANISMS NOT DETECTED BY RP FLEX. THE AGENT(S) DETECTED MAY NOT BE THE DEFINITE CAUSE OF DISEASE. THE USE OF ADDITIONAL LABORATORY TESTING AND CLINICAL PRESENTATION MAY BE NECESSARY TO ESTABLISH A FINAL DIAGNOSIS OF RESPIRATORY INFECTION. CLINICAL EVALUATION INDICATES A LOWER SENSITIVITY SPECIFIC TO RP FLEX FOR THE DETECTION OF RHINOVIRUS. IF INFECTION WITH RHINOVIRUS IS SUSPECTED, NEGATIVE SAMPLES SHOULD BE CONFIRMED USING AN ALTERNATIVE METHOD. PERFORMANCE CHARACTERISTICS FOR INFLUENZA A WERE ESTABLISHED WHEN INFLUENZA A/H1 (2009 PANDEMIC) AND A/H3 WERE THE PREDOMINANT INFLUENZA A VIRUSES IN CIRCULATION. RP FLEX MAY NOT DETECT NOVEL INFLUENZA A STRAINS. IF INFECTION WITH A NOVEL INFLUENZA A VIRUS IS SUSPECTED BASED ON CURRENT CLINICAL AND EPIDEMIOLOGICAL SCREENING CRITERIA RECOMMENDED BY PUBLIC HEALTH AUTHORITIES, SPECIMENS SHOULD BE COLLECTED WITH APPROPRIATE INFECTION CONTROL PRECAUTIONS USED SPECIFICALLY FOR NOVEL VIRULENT INFLUENZA VIRUSES AND SENT TO APPROPRIATE HEALTH AUTHORITIES FOR TESTING. VIRAL CULTURE SHOULD NOT BE ATTEMPTED IN THESE CASES UNLESS A BIOSAFETY LEVEL (BSL) 3+ FACILITY IS AVAILABLE TO RECEIVE AND CULTURE SPECIMENS. Performed By: #### 2 [id number] #### [place] [id number] RESPIRATORY PANEL PCR (POM)o n 10-22-2023 ADENOVIRUS Negative Normal NORMAL: NEGATIVE [facility] Comment on above: Performed By: #### 2 [id number] #### [address] [address] B. HOLMESII Negative Normal NORMAL: NEGATIVE [facility] Comment on above: Performed By: #### 2 02306 #### [address] [address] B. PARAPERTUSSIS Negative Normal NORMAL: NEGATIVE [facility] Comment on above: Performed By: #### 2 98270 #### [facility],[address] [place] [address] B. PERTUSSIS Negative Normal NORMAL: NEGATIVE [facility] Comment on above: Performed By: #### 2 80937 #### [address] [address] H. METAPNEUMOVIRUS Negative Normal NORMAL: NEGATIVE [facility] Comment on above: Performed By: #### 2 08114 #### [address] [facility],[place] [address] Influenza A Negative Normal NORMAL: NEGATIVE [facility] Comment on above: Performed By: #### 2 79955 #### [facility],[address] [facility],[place] [address] INFLUENZA A H1 Negative Normal NORMAL: NEGATIVE [facility] Comment on above: Performed By: #### 2 94435 #### [facility],[address] [facility],[place] [address] INFLUENZA A H3 Negative Normal NORMAL: NEGATIVE [facility] Comment on above: Performed By: #### 2 27729 #### [facility],[address] [facility],[place] [address] Influenza B Negative Normal NORMAL: NEGATIVE [facility] Comment on above: Performed By: #### 2 03688 #### [facility],[address] [facility],[place] [address] PARAINFLUENZA 1 Negative Normal NORMAL: NEGATIVE [facility] Comment on above: Performed By: #### 2 71879 #### [facility],[address] [facility],[place] [address] PARAINFLUENZA 2 Negative Normal NORMAL: NEGATIVE [facility] Comment on above: Performed By: #### 2 25702 #### [facility],[address] [facility],[place] [address] PARAINFLUENZA 3 Negative Normal NORMAL: NEGATIVE [facility] Comment on above: Performed By: #### 2 36205 #### [facility],[address] [facility],[place] [address] PARAINFLUENZA 4 Negative Normal NORMAL: NEGATIVE [facility] Comment on above: Performed By: #### 2 43581 #### [facility],[address] [facility],[place] [address] RESPIRATORY PANEL PCR (POM) Normal [facility] Comment on above: Result Comment: RESP IRATORY PANEL FLEX PCR Performed By: #### 2 70852 #### [facility],[address] [place] [address] RHINOVIRUS Negative Normal NORMAL: NEGATIVE [facility] Comment on above: Performed By: #### 2 65867 #### [facility],[address] [place] [address] RSV A Negative Normal NORMAL: NEGATIVE [facility] Comment on above: Performed By: #### 2 78579 #### [facility],[address] [place] [address] RSV B Negative Normal NORMAL: NEGATIVE [facility] Comment on above: Performed By: #### 2 21520 #### [facility],[address] [place] [address] Gastroenterology Visit Repor ton 10-19-2023 Gastroenterology Visit Report Normal [facility] ECG 12 lead - CLINIC PERFORM EDon 08-23-2023 Sinus Rhythm -RSR(V1) NORMAL [facility] PATINSon 08-23-2023 PATINS Normal [facility] Progress Noteon 08-23-2023 Progress Note Normal [facility] Progress Note Normal [facility] CBC (HEMOGRAM)on 08-11-2023 Erythrocyte distribution width (RBC) [Ratio] 18.5 % High 11.5-15.0 [facility] Comment on above: Order Comment: These orders are set for an approximate date - they can be drawn up to 3 months prior to the Expected Date on this Req.Please send results to: [facility] [address] [facility] [address] - [phone] if not done at a [facility], please send to:[facility] [address] [address]Kqmmp: [phone] Wliikzh Name: Anne Marie Peterson - 1995Order Created by : Peggy Friedman MA Performed By: #### L [id number] ####Senior Sustainability Advisor: HENNY WADE ([phone])[facility] ([address] Hematocrit (Bld) [Volume fraction] 38.7 % Normal 35.0-47.0 [facility] Comment on above: Order Comment: These orders are set for an approximate date - they can be drawn up to 3 months prior to the Expected Date on this Req.Please send results to: [address] [address] - [phone] if not done at a [facility], please send to:[place] [address]Phone: Wobcioq Name: Anne Marie Peterson - 1995Order Created by : Peggy Friedman MA Performed By: #### L AB294 ####Senior Sustainability Advisor: HENNY WADE ([phone])[address] Hemoglobin (Bld) [Mass/Vol] 11.7 g/dL Normal 11.7-16.0 [facility] Comment on above: Order Comment: These orders are set for an approximate date - they can be drawn up to 3 months prior to the Expected Date on this Req.Please send results to: [address] [address] - [phone] if not done at a [facility], please send to:[place] [address]Phone: Wmvhwpl Name: Anne Marie Tran 1995Order Created by : Peggy Friedman MA Performed By: #### L AB294 ####Senior Sustainability Advisor: HENNY WADE ([phone])[address] IPF 5 Normal [facility] Comment on above: Order Comment: These orders are set for an approximate date - they can be drawn up to 3 months prior to the Expected Date on this Req.Please send results to: [address] [address] - [phone] if not done at a [facility], please send to:[address] [address]Ltqio: [phone] Zzjwiaf Name: Anne Marie Peterson 1995Order Created by : Peggy Friedman MA Performed By: #### L AB294 ####Senior Sustainability Advisor: HENNY WADE ([phone])[facility] ([facility])[address] [place] [address] MCH (RBC) [Entitic mass] 22.9 pg Low 26.0-34.0 [facility] Comment on above: Order Comment: These orders are set for an approximate date - they can be drawn up to 3 months prior to the Expected Date on this Req.Please send results to: [address] [address] - [phone] if not done at a [facility], please send to:[address] [address]Ubnga: [phone] Zyjemet Name: Anne Marie Peterson 1995Order Created by : Peggy Friedman MA Performed By: #### L AB294 ####Senior Sustainability Advisor: HENNY WADE ([phone])[facility] ([facility])[address] [place] [address] MCHC 30.2 % Low 30.5-36.0 [facility] Comment on above: Order Comment: These orders are set for an approximate date - they can be drawn up to 3 months prior to the Expected Date on this Req.Please send results to: [address] [address] - [phone] if not done at a [facility], please send to:[address], [address]Ixgsh: [phone] Halujvv Name: Anne Marie Tran 1995Order Created by : Peggy Friedman MA Performed By: #### L AB294 ####Senior Sustainability Advisor: HENNY WADE ([phone])[facility])[address] [place] [address] MCV (RBC) [Entitic vol] 75.7 fL Low 77.0-99.0 S [facility] Comment on above: Order Comment: These orders are set for an approximate date - they can be drawn up to 3 months prior to the Expected Date on this Req.Please send results to: [address] [address] - [phone] if not done at a [facility], please send to:[place] [address]Phone: Nyamfjb Name: Anne Marie Tran 1995Order Created by : Peggy Friedman MA Performed By: #### L AB294 ####Senior Sustainability Advisor: HENNY WADE ([phone])[address] Platelet mean volume (Bld) [Entitic vol] 11.9 fL Normal 9.0-12.7 [facility] Comment on above: Order Comment: These orders are set for an approximate date - they can be drawn up to 3 months prior to the Expected Date on this Req.Please send results to: [address] [address] - [phone] if not done at a [facility], please send to:[address] [address]Gmlst: [phone] Lkkouik Name: Anne Marie Tran 1995Order Created by : Peggy Friedman MA Performed By: #### L AB294 ####Senior Sustainability Advisor: HENNY WADE ([phone])[facility] ([facility])[address] [place] [address] Platelets (Bld) [#/Vol] 311 10*3/uL Normal 140-440 [facility] Comment on above: Order Comment: These orders are set for an approximate date - they can be drawn up to 3 months prior to the Expected Date on this Req.Please send results to: [address] [address] - [phone] if not done at a [facility], please send to:[place] [address]Phone: Fmgrqdn Name: Anne Marie Peterson - 1995Order Created by : Peggy Friedman MA Performed By: #### L AB294 ####Senior Sustainability Advisor: HENNY WADE ([phone])[facility])[address] [place] [address] RBC (Bld) [#/Vol] 5.11 10*6/uL Normal 3.80-5.20 [facility] Comment on above: Order Comment: These orders are set for an approximate date - they can be drawn up to 3 months prior to the Expected Date on this Req.Please send results to: [address] [address] - [phone] if not done at a [facility], please send to:[place] [address]Phone: Gmpnbag Name: Anne Marie Peterson - 1995Order Created by : Peggy Friedman MA Performed By: #### L AB294 ####Senior Sustainability Advisor: HENNY WADE ([phone])[facility] ([facility])[address] [place] [address] WBC (Bld) [#/Vol] 7.8 10*3/uL Normal 3.6-10.7 [facility] Comment on above: Order Comment: These orders are set for an approximate date - they can be drawn up to 3 months prior to the Expected Date on this Req.Please send results to: [facility] [address] [address] - [phone] if not done at a [facility], please send to:[facility] - [address] [place] [address], Suite [facility], [address]Aafbx: [phone] Deuelmz Name: Anne Marie Peterson - 1995Order Created by : Peggy Friedman MA Performed By: #### L [id number] ####Senior Sustainability Advisor: HENNY WADE ([phone])[facility] ([facility])[address] [place] [address] CBC panel Auto (Bld)Ordered By: Tino Lopez on 08-11-2023 Erythrocyte distribution width (RBC) [Ratio] 18.5 % High 11.5 - 15.0 % [facility] Hematocrit (Bld) [Volume fraction] 38.7 % 35.0 - 47.0 % [facility] Hemoglobin (Bld) [Mass/Vol] 11.7 g/dL 11.7 - 16.0 g/dL [facility] Interpretation and review of laboratory results Abnormal [facility] IPF 5 [facility] MCH (RBC) [Entitic mass] 22.9 pg Low 26.0 - 34.0 pg [facility] MCHC (RBC) [Mass/Vol] 30.2 % Low 30.5 - 36.0 % [facility] MCV (RBC) [Entitic vol] 75.7 fL Low 77.0 - 99.0 fL [facility] Platelet mean volume (Bld) [Entitic vol] 11.9 fL 9.0 - 12.7 fL [facility] Platelets (Bld) [#/Vol] 311 10*3/uL 140 - 440 10*3/uL [facility] RBC (Bld) [#/Vol] 5.11 10*6/uL 3.80 - 5.2 0 10*6/uL [facility] WBC (Bld) [#/Vol] 7.8 10*3/uL 3.6 - 10.7 10*3/uL [facility] COMPREHENSIVE METABOLIC PANE Chavez 08-11-2023 Albumin [Mass/Vol] 3.7 g/dL Normal 3.5-5.0 [facility] Comment on above: Order Comment: These orders are set for an approximate date - they can be drawn up to 3 months prior to the Expected Date on this Req.Please send results to: [address] [address] - [phone] if not done at a [facility], please send to:[address] [address]Xoclc: [phone] Znvukhf Name: Anne Marie Tran 1995Order Created by : Peggy Friedman MA Performed By: #### L AB69, LAB67, LAB68, LAB94, LAB17, [id number] ####Senior Sustainability Advisor: HENNY WADE ([phone])[address] ALP [Catalytic activity/Vol] 73 U/L Normal 38-126 [facility] Comment on above: Order Comment: These orders are set for an approximate date - they can be drawn up to 3 months prior to the Expected Date on this Req.Please send results to: [address] [address] - [phone] if not done at a [facility], please send to:[address] [address]Ccbaz: [phone] Zjbmdef Name: Anne Marie Peterson - 1995Order Created by : Peggy Friedman MA Performed By: #### L AB69, LAB67, LAB68, LAB94, LAB17, [id number] ####Senior Sustainability Advisor: HENNY WADE ([phone])[facility])[address] [place] [address] ALT [Catalytic activity/Vol] 27 U/L Normal 0-34 [facility] Comment on above: Order Comment: These orders are set for an approximate date - they can be drawn up to 3 months prior to the Expected Date on this Req.Please send results to: [facility] [address] [address] - [phone] if not done at a [facility], please send to:[address] [address]Pqlaq: [phone] Uofetxn Name: Anne Marie Tran 1995Order Created by : Peggy Friedman MA Performed By: #### L AB69, LAB67, LAB68, LAB94, LAB17, [id number] ####Senior Sustainability Advisor: HENNY WADE ([phone])[address] Anion gap [Moles/Vol] 8 mmol/L Normal 3-13 [facility] Comment on above: Order Comment: These orders are set for an approximate date - they can be drawn up to 3 months prior to the Expected Date on this Req.Please send results to: [place] [address] [address] - [phone] if not done at a [facility], please send to:[address] [address]Ynwdc: [phone] Idzlatl Name: Anne Marie Peterson 1995Order Created by : Peggy Friedman MA Performed By: #### L AB69, LAB67, LAB68, LAB94, LAB17, [id number] ####Senior Sustainability Advisor: HENNY WADE ([phone])[address] AST [Catalytic activity/Vol] 34 U/L Normal 15-46 [facility] Comment on above: Order Comment: These orders are set for an approximate date - they can be drawn up to 3 months prior to the Expected Date on this Req.Please send results to: [address] [address] - [phone] if not done at a [facility], please send to:[address] [address]Ndpak: [phone] Ederlma Name: Anne Marie Peterson - 1995Order Created by : Peggy Friedman MA Performed By: #### L AB69, LAB67, LAB68, LAB94, LAB17, [id number] ####Senior Sustainability Advisor: HENNY WADE ([phone])[address] Bilirubin [Mass/Vol] 0.6 mg/dL Normal 0.2-1.3 [facility] Comment on above: Order Comment: These orders are set for an approximate date - they can be drawn up to 3 months prior to the Expected Date on this Req.Please send results to: [address] [address] - [phone] if not done at a [facility], please send to:[address] [address]Txgcy: [phone] Zgyxzdn Name: Anne Marie Peterson 1995Order Created by : Peggy Friedman MA Performed By: #### L AB69, LAB67, LAB68, LAB94, LAB17, [id number] ####Senior Sustainability Advisor: HENNY WADE ([phone])[facility] ([facility])[address] [place] [address] Calcium [Mass/Vol] 9.0 mg/dL Normal 8.4-10.4 [facility] Comment on above: Order Comment: These orders are set for an approximate date - they can be drawn up to 3 months prior to the Expected Date on this Req.Please send results to: [address] [address] - [phone] if not done at a [facility], please send to:[address], [address]Dhaaf: [phone] Scxhktn Name: Anne Marie Peterson - 1995Order Created by : Peggy Friedman MA Performed By: #### L AB69, LAB67, LAB68, LAB94, LAB17, [id number] ####Senior Sustainability Advisor: HENNY WADE ([phone])[facility])[address] [place] [address] Chloride [Moles/Vol] 104 mmol/L Normal 98-107 [facility] Comment on above: Order Comment: These orders are set for an approximate date - they can be drawn up to 3 months prior to the Expected Date on this Req.Please send results to: [address] [address] - [phone] if not done at a [facility], please send to:[address] [address]Uaznf: [phone] Lieyfhp Name: Anne Marie Peterson - 1995Order Created by : Peggy Friedman MA Performed By: #### L AB69, LAB67, LAB68, LAB94, LAB17, [id number] ####Senior Sustainability Advisor: HENNY WADE ([phone])[address] CO2 [Moles/Vol] 25 mmol/L Normal 22-30 [facility] Comment on above: Order Comment: These orders are set for an approximate date - they can be drawn up to 3 months prior to the Expected Date on this Req.Please send results to: [address] [address] - [phone] if not done at a [facility], please send to:[address], [address]Vluxl: [phone] Lklwskl Name: Anne Marie Tran 1995Order Created by : Peggy Friedman MA Performed By: #### L AB69, LAB67, LAB68, LAB94, LAB17, [id number] ####Senior Sustainability Advisor: HENNY WADE ([phone])[facility])[address] [place] [address] Creatinine [Mass/Vol] 0.54 mg/dL Normal 0.52-1.04 [facility] Comment on above: Order Comment: These orders are set for an approximate date - they can be drawn up to 3 months prior to the Expected Date on this Req.Please send results to: [address] [address] - [phone] if not done at a [facility], please send to:[place] [address]Phone: Adzqxhq Name: Anne Marie Tran 1995Order Created by : Peggy Friedman MA Performed By: #### L AB69, LAB67, LAB68, LAB94, LAB17, [id number] ####Senior Sustainability Advisor: HENNY WADE ([phone])[facility])[address] [place] [address] GLOMERULAR FILTRATION RATE ML/MIN/1.73 SQ M.PREDICTED >90.0 Normal >60.0 [facility] Comment on above: Order Comment: These orders are set for an approximate date - they can be drawn up to 3 months prior to the Expected Date on this Req.Please send results to: [address] [address] - [phone] if not done at a [facility], please send to:[place] [address]Phone: Vksexag Name: Anne Marie Tran 1995Order Created by : Peggy Friedman MA Result Comment: Calc ulation based on the Chronic Kidney Disease Epidemiology Collaboration (CKD-EPI) equation refit without adjustment for race Performed By: #### L AB69, LAB67, LAB68, LAB94, LAB17, [id number] ####Senior Sustainability Advisor: HENNY WADE ([phone])[facility])[address] [place] [address] Glucose [Mass/Vol] 82 mg/dL Normal 70-100 [facility] Comment on above: Order Comment: These orders are set for an approximate date - they can be drawn up to 3 months prior to the Expected Date on this Req.Please send results to: [address] [address] - [phone] if not done at a [facility], please send to:[address] [address]Eerve: [phone] Mfdyjnq Name: Anne Marie Peterson 1995Order Created by : Peggy Friedman MA Performed By: #### L AB69, LAB67, LAB68, LAB94, LAB17, [id number] ####Senior Sustainability Advisor: HENNY WADE ([phone])[facility])[address] [place] [address] Potassium [Moles/Vol] 3.9 mmol/L Normal 3.5-5.1 [facility] Comment on above: Order Comment: These orders are set for an approximate date - they can be drawn up to 3 months prior to the Expected Date on this Req.Please send results to: [address] [address] - [phone] if not done at a [facility], please send to:[address], [address]Ofjhy: [phone] Tnbiflw Name: Anne Marie Peterson - 1995Order Created by : Peggy Friedman MA Performed By: #### L AB69, LAB67, LAB68, LAB94, LAB17, [id number] ####Senior Sustainability Advisor: HENNY WADE ([phone])[address] Protein [Mass/Vol] 7.1 g/dL Normal 6.3-8.2 [facility] Comment on above: Order Comment: These orders are set for an approximate date - they can be drawn up to 3 months prior to the Expected Date on this Req.Please send results to: [address] [address] - [phone] if not done at a [facility], please send to:[place] [address]Phone: Ruoxbxj Name: Anne Marie Peterson 1995Order Created by : Peggy Friedman MA Performed By: #### L AB69, LAB67, LAB68, LAB94, LAB17, [id number] ####Senior Sustainability Advisor: HENNY WADE ([phone])[address] Sodium [Moles/Vol] 138 mmol/L Normal 135-145 [facility] Comment on above: Order Comment: These orders are set for an approximate date - they can be drawn up to 3 months prior to the Expected Date on this Req.Please send results to: [address] [address] - [phone] if not done at a [facility], please send to:[place] [address]Phone: Ovaobcc Name: Anne Marie Peterson 1995Order Created by : Peggy Friedman MA Performed By: #### L AB69, LAB67, LAB68, LAB94, LAB17, [id number] ####Senior Sustainability Advisor: HENNY WADE ([phone])[address] [place] [address] [place] Urea nitrogen [Mass/Vol] 7 mg/dL Normal 09-07 [facility] Comment on above: Order Comment: These orders are set for an approximate date - they can be drawn up to 3 months prior to the Expected Date on this Req.Please send results to: [address] [address] - [phone] if not done at a [facility], please send to:[facility] - [address] [place] [address], [address] [place] [address], [address]Ijzlc: [phone] Bwtjutg Name: Anne Marie Peterson - 1995Order Created by : Peggy Friedman MA Performed By: #### L AB69, LAB67, LAB68, LAB94, LAB17, [id number] ####Senior Sustainability Advisor: HENNY WADE ([phone])[facility] ([facility])[address] [place] [address] Cobalamin (Vitamin B12) [Mas s/Vol]on 08-11-2023 Interpretation and review of laboratory results Normal [facility] Comprehensive metabolic 1998 panelon 08-11-2023 Albumin [Mass/Vol] 3.7 g/dL 3.5 - 5.0 g/dL [facility] ALP [Catalytic activity/Vol] 73 U/L 38 - 126 U/L [facility] ALT [Catalytic activity/Vol] 27 U/L 0 - 34 U/L [facility] Anion gap [Moles/Vol] 8 mmol/L 3 - 13 mmol/L [facility] AST [Catalytic activity/Vol] 34 U/L 15 - 46 U/L [facility] Bilirubin [Mass/Vol] 0.6 mg/dL 0.2 - 1 .3 mg/dL [facility] Calcium [Mass/Vol] 9.0 mg/dL 8.4 - 10. 4 mg/dL [facility] Chloride [Moles/Vol] 104 mmol/L 98 - 10 7 mmol/L [facility] CO2 [Moles/Vol] 25 mmol/L 22 - 30 mmol/L [facility] Creatinine [Mass/Vol] 0.54 mg/dL 0.52 - 1.04 mg/dL [facility] GFR/1.73 sq M.predicted MDRD (S/P/Bld) [Vol rate/Area] - PINF [facility] Comment on above: Calculation based on the Chronic Kidney Disease Epidemiology Collaboration (CKD-EPI) equation refit without adjustment for race Glucose [Mass/Vol] 82 mg/dL 70 - 100 mg/dL [facility] Potassium [Moles/Vol] 3.9 mmol/L 3.5 - 5.1 mmol/L [facility] Protein [Mass/Vol] 7.1 g/dL 6.3 - 8.2 g/dL [facility] Sodium [Moles/Vol] 138 mmol/L 135 - 145 mmol/L [facility] Urea nitrogen [Mass/Vol] 7 mg/dL 7 - 17 mg/dL [facility] FERRITINon 08-11-2023 Ferritin [Mass/Vol] 19 ng/mL Normal 6-137 [facility] Comment on above: Order Comment: These orders are set for an approximate date - they can be drawn up to 3 months prior to the Expected Date on this Req.Please send results to: [address] [address] - [phone] if not done at a [facility], please send to:[facility] - [address] [place] [address], [address], [address]Twglm: [phone] Wpcwjer Name: Anne Marie Peterson - 1995Order Created by : Peggy Friedman MA Performed By: #### L AB69, LAB67, LAB68, LAB94, LAB17, [id number] ####Senior Sustainability Advisor: HENNY WADE ([phone])[facility] ([facility])[address] [place] [address] FOLATEon 08-11-2023 FOLATE RESULT 2.5 ng/mL Low >=2.9 [facility] Comment on above: Order Comment: These orders are set for an approximate date - they can be drawn up to 3 months prior to the Expected Date on this Req.Please send results to: [address] [address] - [phone] if not done at a [facility], please send to:[address], [address]Qyfjq: [phone] Dcyanlf Name: Anne Marie Peterson - 1995Order Created by : Peggy Friedman MA Performed By: #### L AB69, LAB67, LAB68, LAB94, LAB17, [id number] ####Senior Sustainability Advisor: HENNY WADE ([phone])[facility] ([facility])[address] [place] [address] [place] Ferritinon 08-11-2023 Ferritin [Mass/Vol] 19 ng/mL 6 - 137 ng/mL [facility] Ferritin [Mass/Vol]on 2023 Interpretation and review of laboratory results Normal [facility] Folateon 08-11-2023 Folate [Mass/Vol] 2.5 ng/mL Low 2.9 - PINF ng/mL [facility] Folate [Mass/Vol]on 08-11-19 Interpretation and review of laboratory results Abnormal [facility] IRONon 08-11-2023 IRON, TOTAL 40 ug/dL Normal 37-170 [facility] Comment on above: Order Comment: These orders are set for an approximate date - they can be drawn up to 3 months prior to the Expected Date on this Req.Please send results to: [address] [address] - [phone] if not done at a [facility], please send to:[address], [address]Eqnzn: [phone] Pmudlxe Name: Anne Marie Peterson - 1995Order Created by : Peggy Friedman MA Performed By: #### L AB69, LAB67, LAB68, LAB94, LAB17, [id number] ####Senior Sustainability Advisor: HENNY WADE ([phone])[facility] ([facility])[address] [place] [address] [place] Iron and Iron binding capaci ty panelon 08-11-2023 Iron [Mass/Vol] 40 ug/dL 37 - 170 ug/dL [facility] MAGNESIUMon 08-11-2023 Magnesium [Mass/Vol] 1.8 mg/dL Normal 1.6-2.3 [facility] Comment on above: Order Comment: These orders are set for an approximate date - they can be drawn up to 3 months prior to the Expected Date on this Req.Please send results to: [facility] [address] [address] - [phone] if not done at a [facility], please send to:[facility] - [address] [place] [address], [address]Crzil: [phone] Wmhndhj Name: Anne Marie Peterson - 1995Order Created by : Peggy Friedman MA Performed By: #### L AB69, LAB67, LAB68, LAB94, LAB17, [id number] ####Senior Sustainability Advisor: HENNY WADE ([phone])[address] Magnesiumon 08-11-2023 Magnesium [Mass/Vol] 1.8 mg/dL 1.6 - 2 .3 mg/dL [facility] No Panel Informationon 08-10 [facility] Interpretation and review of laboratory results Normal [facility] Progress Noteon 08-11-2023 Progress Note Normal [facility] VITAMIN B12on 08-11-2023 Cobalamin (Vitamin B12) [Mass/Vol] 242 pg/mL Normal 239-931 [facility] Comment on above: Order Comment: These orders are set for an approximate date - they can be drawn up to 3 months prior to the Expected Date on this Req.Please send results to: [facility] [address] [address] - [phone] if not done at a [facility], please send to:[facility] - [address] [place] [address], [address], [address]Tmkyw: [phone] Atipbga Name: Anne Marie Peterson - 1995Order Created by : Peggy Friedman MA Performed By: #### L AB69, LAB67, LAB68, LAB94, LAB17, [id number] ####Senior Sustainability Advisor: HENNY WADE ([phone])[facility] ([facility])[address] [place] [address] Vitamin B12on 08-11-2023 Cobalamin (Vitamin B12) [Mass/Vol] 242 pg/mL 239 - 931 pg/mL [facility] ZINC (BKR QUEST)on QUEST ZINC 78 mcg/dL Normal 60-130 [facility] Comment on above: Order Comment: These orders are set for an approximate date - they can be drawn up to 3 months prior to the Expected Date on this Req.Please send results to: [address] [address] - [phone] if not done at a [facility], please send to:[facility] [address], [address], [address]Ydavt: [phone] Lvkvwuz Name: Anne Marie Peterson - 1995Order Created by : Peggy Friedman MA Result Comment: This test was developed and its analytical performancecharacteristics have been determined by [employer] [place], [place]. It hasnot been cleared or approved by the U.S. Food and DrugAdministration. This assay has been validated pursuantto the CLIA regulations and is used for clinicalpurposes.Test Performed by [facility],[address] [place] [id number] Seth M.D., Ph.D., Director of [phone], CLIA [id number] Performed By: #### L AB581 ####[facility] ([facility])[address] [place] [address] [place] CBC + DIFFon 08-10-2023 Baso # 0.02 x10EE3/UL Normal 0.00 - 0.10 [facility] Comment on above: Performed By: #### 2 36951 #### [facility],[address] [place] [address] Basophils/100 WBC (Bld) 0.2 % Normal 0.0 - 2.0 [facility] Comment on above: Performed By: #### 2 16575 #### [facility],[address] [place] [address] CBC + DIFF Normal [facility] Comment on above: Result Comment: CBC- COMPLETE BLOOD COUNT Performed By: #### 2 23251 #### [facility],[address] [place] [address] EO # 0.13 x10EE3/UL Normal 0.00 - 0.50 [facility] Comment on above: Performed By: #### 2 03964 #### [facility],[address] [place] [address] Eosinophils/100 WBC (Bld) 1.3 % Normal 0.0 - 7.0 [facility] Comment on above: Performed By: #### 2 25190 #### [facility],[address] [place] [address] Erythrocyte distribution width (RBC) [Ratio] 19.2 % High 12.0 - 15.6 [facility] Comment on above: Performed By: #### 2 69908 #### [facility],[address] [place] [address] Hematocrit (Bld) [Volume fraction] 41.7 % Normal 34.0 - 46.0 [facility] Comment on above: Performed By: #### 2 84211 #### [facility],[address] [place] [address] Hemoglobin (Bld) [Mass/Vol] 13.2 g/dL Normal 12.0 - 16.0 [facility] Comment on above: Performed By: #### 2 62723 #### [facility],[address],[place] [address] Lymph # 1.91 x10EE3/UL Normal 0.80 - 2.80 [facility] Comment on above: Performed By: #### 2 40394 #### [place] [address] Lymphocytes/100 WBC (Bld) 20.5 % Normal 20.0 - 45.0 [facility] Comment on above: Performed By: #### 2 61517 #### [facility],[address] [place] [address] MANUAL DIFF N/A Normal [facility] Comment on above: Performed By: #### 2 75081 #### [place] [address] MCH (RBC) [Entitic mass] 23 pg Low 27 - 33 [facility] Comment on above: Performed By: #### 2 85717 #### [place] [address] MCHC 32 X10 3 Normal 32 - 36 [facility] Comment on above: Performed By: #### 2 12810 #### [place] [id number] MCV (RBC) [Entitic vol] 73 fL Low 80 - 99 [facility] Comment on above: Performed By: #### 2 79186 #### [place] [id number] [place] # 0.62 x10EE3/UL Normal 0.20 - 1.00 [facility] Comment on above: Performed By: #### 2 68692 #### [place] [address] MONOS % 6.6 % Normal 0.0 - 10.0 [facility] Comment on above: Performed By: #### 2 92781 #### [address] [address] Morphology Girish (Bld) [Interp] REVIEWED Normal [facility] Comment on above: Performed By: #### 2 91322 #### [facility],[address] [place] [address] Neut # 6.67 x10EE3/UL Normal 1.50 - 7.10 [facility] Comment on above: Performed By: #### 2 18665 #### [facility],[address] [place] [address] Neutrophils/100 WBC (Bld) 71.4 % Normal 46.0 - 76.0 [facility] Comment on above: Performed By: #### 2 36120 #### [facility],[address] [place] [address] PLATELET 425 x10EE3/UL Normal 150 - 450 [facility] Comment on above: Performed By: #### 2 39801 #### [place] [address] Platelet mean volume (Bld) [Entitic vol] 10.2 fL Normal 6.6 - 10.5 [facility] Comment on above: Result Comment: AUTO MATED DIFFERENTIAL Performed By: #### 2 49967 #### [place] [id number] RBC 5.70 x 10EE6/UL High 4.10 - 5.30 [facility] Comment on above: Performed By: #### 2 63084 #### [facility],[address] [place], [place] [address] WBC 9.4 x 10EE3/UL Normal 4.5 - 10.8 [facility] Comment on above: Performed By: #### 2 75422 #### [facility],[address] [place] [address] CMP with eGFRon 08-10-2023 AGE 27 years Normal [facility] Comment on above: Performed By: #### 2 08851 #### [facility],[address] [place], [place] [address] Albumin [Mass/Vol] 3.4 g/dL Normal 3.4 - 5.0 [facility] Comment on above: Performed By: #### 2 25714 #### [facility],[address] [place] [address] Albumin/Globulin [Mass ratio] 0.8 {ratio} Low 0.9 - 1.6 [facility] Comment on above: Performed By: #### 2 92667 #### [facility],[address] [place] [address] ALK PHOS 84 U/L Normal 46 - 116 [facility] Comment on above: Performed By: #### 2 80399 #### [facility],[address] [place] [address] ALT [Catalytic activity/Vol] 32 U/L Normal 16 - 63 [facility] Comment on above: Performed By: #### 2 56079 #### [facility],[address] [place] [address] Anion gap [Moles/Vol] 16 mmol/L Normal 10 - 20 [facility] Comment on above: Performed By: #### 2 37553 #### [facility],[address] [place] [address] AST [Catalytic activity/Vol] 24 U/L Normal 13 - 39 [facility] Comment on above: Performed By: #### 2 71772 #### [place] [id number] B/C RATIO 7 ratio Normal 0 - 30 [facility] Comment on above: Performed By: #### 2 27228 #### [place] [id number] Bilirubin [Mass/Vol] 0.6 mg/dL Normal 0.2 - 1.0 [facility] Comment on above: Performed By: #### 2 22536 #### [facility],[address] [place], [place] [address] Calcium [Mass/Vol] 9.3 mg/dL Normal 8.5 - 10.1 [facility] Comment on above: Performed By: #### 2 75314 #### [facility],[address] [place] [address] Chloride [Moles/Vol] 103 mmol/L Normal 98 - 107 [facility] Comment on above: Performed By: #### 2 70461 #### [facility],[address] [place] [address] CMP with eGFR Normal [facility] Comment on above: Result Comment: COMP REHENSIVE METABOLIC PANEL Performed By: #### 2 36862 #### [place] [address] CO2 [Moles/Vol] 24.1 mmol/L Normal 21.0 - 32.0 [facility] Comment on above: Performed By: #### 2 89682 #### [place] [address] Creatinine [Mass/Vol] 0.70 mg/dL Normal 0.55 - 1.02 [facility] Comment on above: Performed By: #### 2 40292 #### [place] [address] GFR/1.73 sq M.predicted among non-blacks MDRD (S/P/Bld) [Vol rate/Area] mL/min/{1.73_m2} Normal 60 - 999 [facility] Comment on above: Performed By: #### 2 49117 #### [place] [address] Result Comment: ACCO RDING TO THE NATIONAL KIDNEY DISEASE EDUCATION PROGRAM(NKDE), A NORMAL eGFR IS A VALUE GREATER THAN OR EQUAL TO 60 ML/MIN/1.73 SQ METERS. CHRONIC KIDNEY DISEASE: <60mL/MIN/1.73 SQ METERS KIDNEY FAILURE: <15mL/MIN/1.73 SQ METERS THIS TEST SHOULD ONLY BE USED FOR PATIENTS 18 YEARS OF AGE AND OLDER. Globulin (S) [Mass/Vol] 4.5 g/dL High 1.5 - 3.8 [facility] Comment on above: Performed By: #### 2 66840 #### [address] [address] Glucose [Mass/Vol] 94 mg/dL Normal 74 - 106 [facility] Comment on above: Performed By: #### 2 77591 #### [place] [id number] Potassium [Moles/Vol] 3.7 mmol/L Normal 3.5 - 5.1 [facility] Comment on above: Performed By: #### 2 70357 #### [address] [address] Protein [Mass/Vol] 7.9 g/dL Normal 6.4 - 8.2 [facility] Comment on above: Performed By: #### 2 95642 #### [place] [id number] Sodium [Moles/Vol] 139 mmol/L Normal 136 - 145 [facility] Comment on above: Performed By: #### 2 25959 #### [place] [id number] Urea nitrogen [Mass/Vol] 5 mg/dL Low 7 - 18 [facility] Comment on above: Performed By: #### 2 56069 #### [address] [address] LIPASEon 08-10-2023 Lipase [Catalytic activity/Vol] 48.0 U/L Normal 15.0 - 78.0 [facility] Comment on above: Result Comment: *PLE ASE NOTE THAT RANGES FOR LIPASE HAVE CHANGED OF 02/19/23 DUE TO AN ASSAY UPDATE BY THE BREAD DUMPER.THE NEW ASSAY RANGE IS 6-250 U/L, WITH A REFERENCE RANGE OF 16-77 U/L. Performed By: #### 2 07002 #### [address] [address] URINEon 08-10-2023 Beta HCG ( test) Ql (U) Negative Normal NEGATIVE [facility] Comment on above: Performed By: #### 2 79835 #### [facility],[address] [place], [place] [address] EXTERNAL QC DONE? YES Normal [facility] Comment on above: Performed By: #### 2 61457 #### [facility],[address] [place], [place] [address] INTERNAL QC PASS Normal [facility] Comment on above: Performed By: #### 2 80958 #### [facility],[address] [place] [address] URINALYSISon 08-10-2023 Amorphous NONE Normal [facility] Comment on above: Performed By: #### 2 86623 #### [facility],[address] [place] [address] Bacteria TRACE Normal [facility] Comment on above: Performed By: #### 2 72968 #### [facility],[address] [place] [address] Bilirubin Ql (U) 1 Abnormal NORMAL: NEGATIVE [facility] Comment on above: Performed By: #### 2 98545 #### [facility],[address] [place] [address] Casts NONE Normal [facility] Comment on above: Performed By: #### 2 96723 #### [facility],[address] [place] [address] Clarity (U) clear Normal NORMAL: CLEAR [facility] Comment on above: Performed By: #### 2 90434 #### [facility],[address] [place] [address] Color (U) brown Normal NORMAL: YELLOW [facility] Comment on above: Performed By: #### 2 89785 #### [facility],[address] [place] [address] Crystals LM Nom (Urine sed) NONE Normal [facility] Comment on above: Performed By: #### 2 26610 #### [facility],[address] [place] [address] Epi Cells MANY Normal [facility] Comment on above: Performed By: #### 2 50065 #### [facility],[address] [place] [address] Glucose Ql (U) NORM Normal NORMAL: NORMAL [facility] Comment on above: Performed By: #### 2 51292 #### [facility],[address] [place] [address] Hemoglobin Ql (U) 10 Abnormal NORMAL: NEGATIVE [facility] Comment on above: Performed By: #### 2 45418 #### [facility],[address] [place] [address] Ketone 5 Abnormal NORMAL: NEGATIVE [facility] Comment on above: Performed By: #### 2 20822 #### [facility],[address] [place] [address] Leukocytes 100 Abnormal NORMAL: NEGATIVE [facility] Comment on above: Performed By: #### 2 86282 #### [facility],[address] [place] [address] Mucous NONE Normal [facility] Comment on above: Performed By: #### 2 49194 #### [facility],[address] [place] [address] Nitrite Ql (U) Negative Normal NORMAL: NEGATIVE [facility] Comment on above: Performed By: #### 2 75367 #### [facility],[address] [place] [address]115 pH (U) 5 [pH] Normal NORMAL: 5.0-8.0 [facility] Comment on above: Performed By: #### 2 98942 #### [facility],[address] [place] [address] Protein Ql (U) 30 Abnormal NORMAL: NEGATIVE [facility] Comment on above: Performed By: #### 2 77498 #### [facility],[address] [place] [address]693 Rbc NONE Normal 0-3/hpf [facility] Comment on above: Performed By: #### 2 59032 #### [facility],[address] [place] [address] Sp [place] 1.020 Normal NORMAL: 1.010-1.030 [facility] Comment on above: Performed By: #### 2 [id number] #### [facility],[address] [place] [address] Specimen Type UNSPECIFIED Normal [facility] Comment on above: Performed By: #### 2 [id number] #### [facility],[address] [place] [address] Urinalysis dipstick W Reflex Microscopic panel (U) SEE BELOW Normal [facility] Comment on above: Result Comment: MICR OSCOPIC Performed By: #### 2 [id number] #### [facility],[address] [place] [address] Urobilinog 4 Abnormal NORMAL: NORMAL [facility] Comment on above: Performed By: #### 2 [id number] #### [facility],[address] [place] [address] Wbc 6-10 Normal 0-5/hpf [facility] Comment on above: Performed By: #### 2 [id number] #### [facility],[address] [place] [address] Yeast NONE Normal [facility] Comment on above: Performed By: #### 2 [id number] #### [facility],[address] [place] [address] URINE CULTURE [CCL]on 2023 Bacteria identified Cx Nom (U) URCUL See Results Below See Below CULTURE, URINE NORMAL UROGENITAL DENISE 10,000 -<50,000 CFU/ml Normal urogenital denise SOURCE: Urine (Nonspecific) [facility] [address] [id number] Kishore Mcdaniels III, M.D. [id number] Normal [facility] Comment on above: Performed By: #### 2 [id number] #### [facility],[address] [place], [place] [id number] KIDNEYon 08-10-2023 KIDNEY [place] [id number] Patient: ANNE MARIE PETERSON Phone#: : [phone] Age: 27 Gender: F Pt. Type: ER Account: [id number] Location: [facility] Ordering: ANUP LARIOS Exam Date: 08/10/2023/9:37 Family Phys: XENIA LANE Charge Code: 163492 Physician: Walton Order #: [id number] Dose#: PROCEDURE: KIDNEY ULTRASOUND COMPARISON: [facility], [place], KIDNEY/BLADDER, 04/11/2022, 21:18. [facility], CT, ABDOMEN/PELVIS W CON, 05/18/2023, 7:05. [facility], [place], KIDNEY, 04/07/2022, 16:34. INDICATIONS: Left Flank Pain. TECHNIQUE: Ultrasound examination was performed of the kidneys and bladder. FINDINGS: RIGHT KIDNEY: Normal. Age-appropriate size and echotexture. Right kidney size 12.8 x 4.7 x 6.5 cm. No mass or obstruction. LEFT KIDNEY: Normal. Age-appropriate size and echotexture. Left kidney size 9.5 x 4.9 x 6.8 cm. No mass or obstruction. OTHER: Negative. CONCLUSION: 1. There is no evidence of hydronephrosis. 2. Renal calculi are not identified. Dictated by: Astrid Johnson MD on 08/10/2023 at 10:42 Approved by: Astrid Johnson MD on 08/10/2023 at 10:49 Normal [facility] 36on 08-06-2023 36 Left voicemail for patient regarding moving her original appointment with Carmen Montgomery On 07/01 from 12:40 to 11:40 patient will call if this time does not work for her. [facility] 36on 07-13-2023 36 Noted and agree with advice provided, thanks! [facility] 36 [facility] PATINSon 07-05-2023 PATINS [facility] Progress Noteon 07-05-2023 Progress Note [facility] 36on 06-30-2023 36 [facility] 36on 06-29-2023 36 The patient called w ith c\o feeling shaky, faint and some numbness in her upper extremities. She does have an Apple watch and stated her heart rate did go up to 180 and is now in the 120s. Please advise. [facility] Progress Noteon 06-17-2023 Progress Note [facility] 36on 06-16-2023 36 [facility] 36 Janae/Yana- kb se try her again today since Bella is out- she needs to be seen tomorrow on Dr. Busby's schedule- you can put her at 8AM. Please make sure someone talks to her today and confirm with me once done. Thank you so much! [facility] 36on 06-14-2023 36 Bella- she did miss her 1 M post op and needs to be added to this week, thanks [facility] 36 Patient discharged t o home on 06/11/23. Follow up currently scheduled for 08/11/23. Please advise if patient needs sooner follow up. Thanks! Normal [facility] BASIC METABOLIC PANELon 05-23 Anion gap [Moles/Vol] 4 mmol/L Normal 3-13 [facility] Comment on above: Performed By: #### L AB15, [id number], [id number] ####Senior Sustainability Advisor: HENNY WADE ([phone])[address] Calcium [Mass/Vol] 8.1 mg/dL Low 8.4-10.4 [facility] Comment on above: Performed By: #### L AB15, [id number], [id number] ####Senior Sustainability Advisor: HENNY WADE ([phone])[facility] ([facility])[address] [place] [address] Chloride [Moles/Vol] 105 mmol/L Normal 98-107 [facility] Comment on above: Performed By: #### L AB15, [id number], [id number] ####Senior Sustainability Advisor: HENNY WADE ([phone])[facility] ([facility])[address] [place] [address] CO2 [Moles/Vol] 28 mmol/L Normal 22-30 [facility] Comment on above: Performed By: #### L AB15, [id number], [id number] ####Senior Sustainability Advisor: HENNY WADE ([phone])[facility])[address] [place] [address] Creatinine [Mass/Vol] 0.42 mg/dL Low 0.52-1.04 [facility] Comment on above: Performed By: #### L AB15, [id number], [id number] ####Senior Sustainability Advisor: HENNY WADE ([phone])[facility] ([facility])[address] [place] [address] GLOMERULAR FILTRATION RATE ML/MIN/1.73 SQ M.PREDICTED >90.0 Normal >60.0 [facility] Comment on above: Result Comment: Calc ulation based on the Chronic Kidney Disease Epidemiology Collaboration (CKD-EPI) equation refit without adjustment for race Performed By: #### L AB15, [id number], [id number] ####Senior Sustainability Advisor: HENNY WADE ([phone])[facility] ([facility])[address] [place] [address] Glucose [Mass/Vol] 91 mg/dL Normal 70-100 [facility] Comment on above: Performed By: #### L AB15, [id number], [id number] ####Senior Sustainability Advisor: HENNY WADE ([phone])[facility])[address] [place] [address] Potassium [Moles/Vol] 3.6 mmol/L Normal 3.5-5.1 [facility] Comment on above: Performed By: #### L AB15, [id number], [id number] ####Senior Sustainability Advisor: HENNY WADE ([phone])[facility] ([facility])[address] [place] [address] Sodium [Moles/Vol] 136 mmol/L Normal 135-145 [facility] Comment on above: Performed By: #### L AB15, NJV371, HSL561 ####Senior Sustainability Advisor: HENNY WADE ([phone])[facility] ([facility])[address] [place] [address] Urea nitrogen [Mass/Vol] 10 mg/dL Normal 7-17 [facility] Comment on above: Performed By: #### L AB15, [id number], XPN691 ####Senior Sustainability Advisor: HENNY WADE ([phone])[facility] ([facility])[address] [place] [address] Basic metabolic 1998 panelon 06-11-2023 Anion gap [Moles/Vol] 4 mmol/L 3 - 13 mmol/L [facility] Calcium [Mass/Vol] 8.1 mg/dL Low 8.4 - 10. 4 mg/dL [facility] Chloride [Moles/Vol] 105 mmol/L 98 - 10 7 mmol/L [facility] CO2 [Moles/Vol] 28 mmol/L 22 - 30 mmol/L [facility] Creatinine [Mass/Vol] 0.42 mg/dL Low 0.52 - 1.04 mg/dL [facility] GFR/1.73 sq M.predicted MDRD (S/P/Bld) [Vol rate/Area] - PINF [facility] Comment on above: Calculation based on the Chronic Kidney Disease Epidemiology Collaboration (CKD-EPI) equation refit without adjustment for race Glucose [Mass/Vol] 91 mg/dL 70 - 100 mg/dL [facility] Interpretation and review of laboratory results Abnormal [facility] Potassium [Moles/Vol] 3.6 mmol/L 3.5 - 5.1 mmol/L [facility] Sodium [Moles/Vol] 136 mmol/L 135 - 145 mmol/L [facility] Urea nitrogen [Mass/Vol] 10 mg/dL 7 - 17 mg/dL [facility] CARECOORDon 06-11-2023 CARECOORD Normal [facility] Laboratory - Chemistry and C hemistry - challengeon 06-11-2023 Magnesium [Mass/Vol] 1.9 mg/dL 1.6 - 2 .3 mg/dL [facility] MAGNESIUMon 06-11-2023 Magnesium [Mass/Vol] 1.9 mg/dL Normal 1.6-2.3 [facility] Comment on above: Performed By: #### L AB15, [id number], [id number] ####Senior Sustainability Advisor: HENNY WADE ([phone])[facility])[address] [place] [address] No Panel Informationon 06-10 Interpretation and review of laboratory results Normal [facility] Nursing Noteon 06-11-2023 Nursing Note Pt discharged home, PICC line removed. Pt tolerated well. Discharged instructions reviewed and signed. No question at this time. Normal [facility] PHOSPHORUSon 06-11-2023 Phosphate [Mass/Vol] 4.0 mg/dL Normal 2.5-4.5 [facility] Comment on above: Performed By: #### L AB15, [id number], [id number] ####Senior Sustainability Advisor: HENNY WADE ([phone])[facility] ([facility])[address] [place] [address] Phosphate [Moles/Vol]on 05-23 Phosphate [Mass/Vol] 4.0 mg/dL 2.5 - 4 .5 mg/dL [facility] Progress Noteon 06-11-2023 Progress Note Normal [facility] BASIC METABOLIC PANELon 05-23 Anion gap [Moles/Vol] 4 mmol/L Normal 3-13 [facility] Comment on above: Performed By: #### L AB15, [id number], [id number] ####Senior Sustainability Advisor: HENNY WADE ([phone])[facility])[address] [place] [address] Calcium [Mass/Vol] 8.3 mg/dL Low 8.4-10.4 [facility] Comment on above: Performed By: #### L AB15, [id number], [id number] ####Senior Sustainability Advisor: HENNY WADE ([phone])[facility])[address] [place] [address] Chloride [Moles/Vol] 104 mmol/L Normal 98-107 [facility] Comment on above: Performed By: #### L AB15, [id number], [id number] ####Senior Sustainability Advisor: HENNY WADE ([phone])[facility])[address] [place] [address] CO2 [Moles/Vol] 29 mmol/L Normal 22-30 [facility] Comment on above: Performed By: #### L AB15, BTP617, [id number] ####Senior Sustainability Advisor: HENNY WADE ([phone])[facility])[address] [place] [address] Creatinine [Mass/Vol] 0.40 mg/dL Low 0.52-1.04 [facility] Comment on above: Performed By: #### L AB15, OBB147, [id number] ####Senior Sustainability Advisor: HENNY WADE ([phone])[facility])[address] [place] [address] GLOMERULAR FILTRATION RATE ML/MIN/1.73 SQ M.PREDICTED >90.0 Normal >60.0 [facility] Comment on above: Result Comment: Calc ulation based on the Chronic Kidney Disease Epidemiology Collaboration (CKD-EPI) equation refit without adjustment for race Performed By: #### L AB15, [id number], [id number] ####Senior Sustainability Advisor: HENNY WADE ([phone])[facility] ([facility])[address] [place] [address] Glucose [Mass/Vol] 95 mg/dL Normal 70-100 [facility] Comment on above: Performed By: #### L AB15, [id number], [id number] ####Senior Sustainability Advisor: HENNY WADE ([phone])[facility])[address] [place] [address] Potassium [Moles/Vol] 3.2 mmol/L Low 3.5-5.1 [facility] Comment on above: Performed By: #### L AB15, [id number], [id number] ####Senior Sustainability Advisor: HENNY [phone])[facility] ([facility])[address] [place] [address] Sodium [Moles/Vol] 137 mmol/L Normal 135-145 [facility] Comment on above: Performed By: #### L AB15, ORV211, [id number] ####Senior Sustainability Advisor: HENNY WADE ([phone])[facility] ([facility])[address] [place] [address] Urea nitrogen [Mass/Vol] 10 mg/dL Normal 7-17 [facility] Comment on above: Performed By: #### L AB15, [id number], VMS380 ####Senior Sustainability Advisor: HENNY WADE ([phone])[facility] ([facility])[address] [place] [address] Basic metabolic 1998 panelon 06-10-2023 Anion gap [Moles/Vol] 4 mmol/L 3 - 13 mmol/L [facility] Calcium [Mass/Vol] 8.3 mg/dL Low 8.4 - 10. 4 mg/dL [facility] Chloride [Moles/Vol] 104 mmol/L 98 - 10 7 mmol/L [facility] CO2 [Moles/Vol] 29 mmol/L 22 - 30 mmol/L [facility] Creatinine [Mass/Vol] 0.40 mg/dL Low 0.52 - 1.04 mg/dL [facility] GFR/1.73 sq M.predicted MDRD (S/P/Bld) [Vol rate/Area] - PINF [facility] Comment on above: Calculation based on the Chronic Kidney Disease Epidemiology Collaboration (CKD-EPI) equation refit without adjustment for race Glucose [Mass/Vol] 95 mg/dL 70 - 100 mg/dL [facility] Interpretation and review of laboratory results Abnormal [facility] Potassium [Moles/Vol] 3.2 mmol/L Low 3.5 - 5.1 mmol/L [facility] Sodium [Moles/Vol] 137 mmol/L 135 - 145 mmol/L [facility] Urea nitrogen [Mass/Vol] 10 mg/dL 7 - 17 mg/dL [facility] CALCIUM, IONIZEDon CALCIUM IONIZED 3.70 mg/dL Low 4.30-5.20 [facility] Comment on above: Performed By: #### L AB54 ####Senior Sustainability Advisor: HENNY WADE ([phone])[facility])[address] [place] [address] PH, IONIZED CALCIUM 7.44 Normal 7.31-7.46 [facility] Comment on above: Performed By: #### L AB54 ####Senior Sustainability Advisor: HENNY WADE ([phone])[facility] ([facility])[address] [place] [address] CALCIUM IONIZED Normal 4.30-5.20 [facility] Comment on above: Result Comment: DISR EGARDCorrected result: Previously reported as 3.80 mg/dL (reference range: 4.30-5.20 mg/dL) on 06/10/2023 at 0107 EDT. Performed By: #### L AB54 ####Senior Sustainability Advisor: HENNY WADE ([phone])[address] PH, IONIZED CALCIUM Normal 7.31-7.46 [facility] Comment on above: Result Comment: DISR EGARDCorrected result: Previously reported as 7.41 (reference range: 7.31-7.46) on 06/10/2023 at 0107 EDT.ORDER COMMENTS:DISREGARD. TPN contamination. Performed By: #### L AB54 ####Senior Sustainability Advisor: HENNY WADE ([phone])[facility] ([facility])[address] [place] [address] CARECOORDon 06-10-2023 CARECOORD Normal [facility] CBC W Auto Differential pane l (Bld)on 06-10-2023 Basophils (Bld) [#/Vol] 0.0 10*3/uL 0.0 - 0.2 10*3/uL [facility] Basophils/100 WBC (Bld) 0.5 % 0.0 - 2.0 % [facility] Eosinophils (Bld) [#/Vol] 0.2 10*3/uL 0.0 - 0.5 10*3/uL [facility] Eosinophils/100 WBC (Bld) 3.4 % 0.0 - 6.0 % [facility] Erythrocyte distribution width (RBC) [Ratio] 19.2 % High 11.5 - 15.0 % [facility] Hematocrit (Bld) [Volume fraction] 31.1 % Low 35.0 - 47.0 % [facility] Hemoglobin (Bld) [Mass/Vol] 9.5 g/dL Low 11.7 - 16.0 g/dL [facility] Immature granulocytes (Bld) [#/Vol] 0.0 10*3/uL NINF - 0.1 10*3/uL [facility] Immature granulocytes/100 WBC (Bld) 0.3 % 0.0 - 2.0 % [facility] Interpretation and review of laboratory results Abnormal [facility] IPF 5 [facility] Lymphocytes (Bld) [#/Vol] 1.8 10*3/uL 1.0 - 4.3 10*3/uL [facility] Lymphocytes/100 WBC (Bld) 30.2 % 15.0 - 45.0 % [facility] MCH (RBC) [Entitic mass] 22.6 pg Low 26.0 - 34.0 pg [facility] MCHC (RBC) [Mass/Vol] 30.5 % 30.5 - 36.0 % [facility] MCV (RBC) [Entitic vol] 73.9 fL Low 77.0 - 99.0 fL [facility] Monocytes (Bld) [#/Vol] 0.5 10*3/uL 0.0 - 0.9 10*3/uL [facility] Monocytes/100 WBC (Bld) 8.0 % 5.0 - 13.0 % [facility] Neutrophils (Bld) [#/Vol] 3.4 10*3/uL 1.8 - 7.5 10*3/uL [facility] Neutrophils/100 WBC (Bld) 57.6 % 38.0 - 82.0 % [facility] Nucleated RBC/100 WBC (Bld) [Ratio] 0.0 % [facility] Platelet mean volume (Bld) [Entitic vol] 12.1 fL 9.0 - 12.7 fL [facility] Platelets (Bld) [#/Vol] 238 10*3/uL 140 - 440 10*3/uL [facility] RBC (Bld) [#/Vol] 4.21 10*6/uL 3.80 - 5.2 0 10*6/uL [facility] WBC (Bld) [#/Vol] 5.9 10*3/uL 3.6 - 10.7 10*3/uL [facility] Basophils (Bld) [#/Vol] [facility] Comment on above: DISREGARD Corrected result: Previously reported as 0.0 10*3/uL (reference range: 0.0-0.2 10*3/uL) on 06/10/2023 at 0109 EDT. Basophils/100 WBC (Bld) [facility] Comment on above: DISREGARD Corrected result: Previously reported as 0.3 % (reference range: 0.0-2.0 %) on 06/10/2023 at 0109 EDT. Eosinophils (Bld) [#/Vol] [facility] Comment on above: DISREGARD Corrected result: Previously reported as 0.2 10*3/uL (reference range: 0.0-0.5 10*3/uL) on 06/10/2023 at 0109 EDT. Eosinophils/100 WBC (Bld) [facility] Comment on above: DISREGARD Corrected result: Previously reported as 3.4 % (reference range: 0.0-6.0 %) on 06/10/2023 at 0109 EDT. Erythrocyte distribution width (RBC) [Ratio] [facility] Comment on above: DISREGARD Corrected result: Previously reported as 19.7 % (reference range: 11.5-15.0 %) on 06/10/2023 at 0109 EDT. Hematocrit (Bld) [Volume fraction] [facility] Comment on above: DISREGARD Corrected result: Previously reported as 31.4 % (reference range: 35.0-47.0 %) on 06/10/2023 at 0109 EDT. Hemoglobin (Bld) [Mass/Vol] [facility] Comment on above: DISREGARD Corrected result: Previously reported as 9.5 g/dL (reference range: 11.7-16.0 g/dL) on 06/10/2023 at 0109 EDT. Immature granulocytes (Bld) [#/Vol] [facility] Comment on above: DISREGARD Corrected result: Previously reported as 0.0 10*3/uL (reference range: <0.1 10*3/uL) on 06/10/2023 at 0109 EDT. Immature granulocytes/100 WBC (Bld) [facility] Comment on above: DISREGARD Corrected result: Previously reported as 0.2 % (reference range: 0.0-2.0 %) on 06/10/2023 at 0109 EDT. Lymphocytes (Bld) [#/Vol] [facility] Comment on above: DISREGARD Corrected result: Previously reported as 1.7 10*3/uL (reference range: 1.0-4.3 10*3/uL) on 06/10/2023 at 0109 EDT. Lymphocytes/100 WBC (Bld) [facility] Comment on above: DISREGARD Corrected result: Previously reported as 27.3 % (reference range: 15.0-45.0 %) on 06/10/2023 at 0109 EDT. MCH (RBC) [Entitic mass] [facility] Comment on above: DISREGARD Corrected result: Previously reported as 23.3 pg (reference range: 26.0-34.0 pg) on 06/10/2023 at 0109 EDT. MCHC (RBC) [Mass/Vol] [facility] Comment on above: DISREGARD Corrected result: Previously reported as 30.3 % (reference range: 30.5-36.0 %) on 06/10/2023 at 0109 EDT. MCV (RBC) [Entitic vol] [facility] Comment on above: DISREGARD Corrected result: Previously reported as 77.1 fL (reference range: 77.0-99.0 fL) on 06/10/2023 at 0109 EDT. Monocytes (Bld) [#/Vol] [facility] Comment on above: DISREGARD Corrected result: Previously reported as 0.4 10*3/uL (reference range: 0.0-0.9 10*3/uL) on 06/10/2023 at 0109 EDT. Monocytes/100 WBC (Bld) [facility] Comment on above: DISREGARD Corrected result: Previously reported as 6.5 % (reference range: 5.0-13.0 %) on 06/10/2023 at 0109 EDT. Neutrophils (Bld) [#/Vol] [facility] Comment on above: DISREGARD Corrected result: Previously reported as 3.9 10*3/uL (reference range: 1.8-7.5 10*3/uL) on 06/10/2023 at 0109 EDT. Neutrophils/100 WBC (Bld) [facility] Comment on above: DISREGARD Corrected result: Previously reported as 62.3 % (reference range: 38.0-82.0 %) on 06/10/2023 at 0109 EDT. Nucleated RBC/100 WBC (Bld) [Ratio] [facility] Comment on above: Corrected result: Pr eviously reported as 0.0 /100 WBCs (reference range: 0.0-2.0 /100 WBCs) on 06/10/2023 at 0109 EDT. Platelet mean volume (Bld) [Entitic vol] [facility] Comment on above: DISREGARD Corrected result: Previously reported as 11.6 fL (reference range: 9.0-12.7 fL) on 06/10/2023 at 0109 EDT. Platelets (Bld) [#/Vol] [facility] Comment on above: DISREGARD Corrected result: Previously reported as 291 10*3/uL (reference range: 140-440 10*3/uL) on 06/10/2023 at 0109 EDT. RBC (Bld) [#/Vol] [facility] Comment on above: DISREGARD Corrected result: Previously reported as 4.07 10*6/uL (reference range: 3.80-5.20 10*6/uL) on 06/10/2023 at 0109 EDT. WBC (Bld) [#/Vol] [facility] Comment on above: DISREGARD Corrected result: Previously reported as 6.2 10*3/uL (reference range: 3.6-10.7 10*3/uL) on 06/10/2023 at 0109 EDT. DISREGARD. TPN Contamination. This is a modified report. Previous result was Hemogram + Auto diff (reference range: ) on 06/10/2023 at 0109 EDT [facility] CBC WITH AUTO DIFFERENTIALon 06-10-2023 Basophils (Bld) [#/Vol] 0.0 10*3/uL Normal 0.0-0.2 [facility] Comment on above: Performed By: #### L [id number] ####Senior Sustainability Advisor: HENNY WADE ([phone])[facility])[address] [place] [address] Basophils/100 WBC (Bld) 0.5 % Normal 0.0-2.0 [facility] Comment on above: Performed By: #### L [id number] ####Senior Sustainability Advisor: HENNY WADE ([phone])[facility])[address] [place] [address] Eosinophils (Bld) [#/Vol] 0.2 10*3/uL Normal 0.0-0.5 [facility] Comment on above: Performed By: #### L [id number] ####Senior Sustainability Advisor: HENNY WADE ([phone])[facility])[address] [place] [address] Eosinophils/100 WBC (Bld) 3.4 % Normal 0.0-6.0 [facility] Comment on above: Performed By: #### L [id number] ####Senior Sustainability Advisor: HENNY WADE ([phone])[facility])[address] [place] [address] Erythrocyte distribution width (RBC) [Ratio] 19.2 % High 11.5-15.0 [facility] Comment on above: Performed By: #### L [id number] ####Senior Sustainability Advisor: HENNY WADE ([phone])[facility])[address] [place] [address] Hematocrit (Bld) [Volume fraction] 31.1 % Low 35.0-47.0 [facility] Comment on above: Performed By: #### L [id number] ####Senior Sustainability Advisor: HENNY WADE ([phone])[facility])[address] [place] [address] Hemoglobin (Bld) [Mass/Vol] 9.5 g/dL Low 11.7-16.0 [facility] Comment on above: Performed By: #### L [id number] ####Senior Sustainability Advisor: HENNY [phone])[facility])[address] [place] [address] IMMATURE GRANS % 0.3 % Normal 0.0-2.0 [facility] Comment on above: Performed By: #### L [id number] ####Senior Sustainability Advisor: HENNY WADE ([phone])[facility])[address] [place] [address] IMMATURE GRANS ABSOLUTE 0.0 10*3/uL Normal <0.1 [facility] Comment on above: Performed By: #### L [id number] ####Senior Sustainability Advisor: HENNY WADE ([phone])[facility])[address] [place] [address] [place] IPF 5 Normal [facility] Comment on above: Performed By: #### L [id number] ####Senior Sustainability Advisor: HENNY WADE ([phone])[facility])[address] [place] [address] Lymphocytes (Bld) [#/Vol] 1.8 10*3/uL Normal 1.0-4.3 [facility] Comment on above: Performed By: #### L [id number] ####Senior Sustainability Advisor: HENNY WADE ([phone])[facility])[address] [place] [address] Lymphocytes/100 WBC (Bld) 30.2 % Normal 15.0-45.0 [facility] Comment on above: Performed By: #### L [id number] ####Senior Sustainability Advisor: HENNY WADE ([phone])[facility])[address] [place] [address] MCH (RBC) [Entitic mass] 22.6 pg Low 26.0-34.0 [facility] Comment on above: Performed By: #### L [id number] ####Senior Sustainability Advisor: HENNY WADE ([phone])[facility])[address] [place] [address] MCHC 30.5 % Normal 30.5-36.0 [facility] Comment on above: Performed By: #### L [id number] ####Senior Sustainability Advisor: HENNY WADE ([phone])[facility] ([facility])[address] [place] [address] MCV (RBC) [Entitic vol] 73.9 fL Low 77.0-99.0 S [facility] Comment on above: Performed By: #### L [id number] ####Senior Sustainability Advisor: HENNY WADE ([phone])[facility])[address] [place] [address] Monocytes (Bld) [#/Vol] 0.5 10*3/uL Normal 0.0-0.9 [facility] Comment on above: Performed By: #### L [id number] ####Senior Sustainability Advisor: HENNY WADE ([phone])[facility])[address] [place] [address] Monocytes/100 WBC (Bld) 8.0 % Normal 5.0-13.0 [facility] Comment on above: Performed By: #### L [id number] ####Senior Sustainability Advisor: HENNY WADE ([phone])[facility] ([facility])[address] [place] [address] NEUTROPHILS ABSOLUTE 3.4 10*3/uL Normal 1.8-7.5 [facility] Comment on above: Performed By: #### L [id number] ####Senior Sustainability Advisor: HENNY WADE ([phone])[facility])[address] [place] [address] Neutrophils/100 WBC (Bld) 57.6 % Normal 38.0-82.0 [facility] Comment on above: Performed By: #### L [id number] ####Senior Sustainability Advisor: HENNY WADE ([phone])[facility])[address] [place] [address] NRBC 0.0 /100 WBCs Normal 0.0-2.0 [facility] Comment on above: Performed By: #### L [id number] ####Senior Sustainability Advisor: HENNY WADE ([phone])[facility] ([facility])[address] [place] [address] Platelet mean volume (Bld) [Entitic vol] 12.1 fL Normal 9.0-12.7 [facility] Comment on above: Performed By: #### L [id number] ####Senior Sustainability Advisor: HENNY WADE ([phone])[facility] ([facility])[address] [place] [address] Platelets (Bld) [#/Vol] 238 10*3/uL Normal 140-440 [facility] Comment on above: Performed By: #### L [id number] ####Senior Sustainability Advisor: HENNY WADE ([phone])[facility] ([facility])[address] [place] [address] RBC (Bld) [#/Vol] 4.21 10*6/uL Normal 3.80-5.20 [facility] Comment on above: Performed By: #### L [id number] ####Senior Sustainability Advisor: HENNY WADE ([phone])[facility] ([facility])[address] [place] [address] WBC (Bld) [#/Vol] 5.9 10*3/uL Normal 3.6-10.7 [facility] Comment on above: Performed By: #### L [id number] ####Senior Sustainability Advisor: HENNY WADE ([phone])[facility] ([facility])[address] [place] [address] BASOPHILS ABSOLUTE Normal 0.0-0.2 [facility] Comment on above: Result Comment: DISR EGARDCorrected result: Previously reported as 0.0 10*3/uL (reference range: 0.0-0.2 10*3/uL) on 06/10/2023 at 0109 EDT. Performed By: #### L [id number] ####Senior Sustainability Advisor: HENNY WADE ([phone])[facility] ([facility])[address] [place] [address] BASOPHILS RELATIVE Normal 0.0-2.0 [facility] Comment on above: Result Comment: DISR EGARDCorrected result: Previously reported as 0.3 % (reference range: 0.0-2.0 %) on 06/10/2023 at 0109 EDT. Performed By: #### L [id number] ####Senior Sustainability Advisor: HENNY WADE ([phone])[facility] ([facility])[address] [place] [address] EOSINOPHILS ABSOLUTE Normal 0.0-0.5 [facility] Comment on above: Result Comment: DISR EGARDCorrected result: Previously reported as 0.2 10*3/uL (reference range: 0.0-0.5 10*3/uL) on 06/10/2023 at 0109 EDT. Performed By: #### L [id number] ####Senior Sustainability Advisor: HENNY WADE ([phone])[facility])[address] [place] [address] EOSINOPHILS RELATIVE Normal 0.0-6.0 [facility] Comment on above: Result Comment: DISR EGARDCorrected result: Previously reported as 3.4 % (reference range: 0.0-6.0 %) on 06/10/2023 at 0109 EDT. Performed By: #### L [id number] ####Senior Sustainability Advisor: HENNY WADE ([phone])[facility] ([facility])[address] [place] [address] HEMATOCRIT Normal 35.0-47.0 [facility] Comment on above: Result Comment: DISR EGARDCorrected result: Previously reported as 31.4 % (reference range: 35.0-47.0 %) on 06/10/2023 at 0109 EDT. Performed By: #### L [id number] ####Senior Sustainability Advisor: HENNY WADE ([phone])[facility])[address] [place] [address] HEMOGLOBIN Normal 11.7-16.0 [facility] Comment on above: Result Comment: DISR EGARDCorrected result: Previously reported as 9.5 g/dL (reference range: 11.7-16.0 g/dL) on 06/10/2023 at 0109 EDT. Performed By: #### L [id number] ####Senior Sustainability Advisor: HENNY WADE ([phone])[facility])[address] [place] [address] IMMATURE GRANS % Normal 0.0-2.0 [facility] Comment on above: Result Comment: DISR EGARDCorrected result: Previously reported as 0.2 % (reference range: 0.0-2.0 %) on 06/10/2023 at 0109 EDT. Performed By: #### L [id number] ####Senior Sustainability Advisor: HENNY WADE ([phone])[address] IMMATURE GRANS ABSOLUTE Normal <0.1 [facility] Comment on above: Result Comment: DISR EGARDCorrected result: Previously reported as 0.0 10*3/uL (reference range: <0.1 10*3/uL) on 06/10/2023 at 0109 EDT.ORDER COMMENTS:DISREGARD. TPN Contamination.This is a modified report. Previous result was Hemogram + Auto diff (reference range: ) on 06/10/2023 at 0109 EDT Performed By: #### L [id number] ####Senior Sustainability Advisor: HENNY WADE ([phone])[address] LYMPHOCYTES ABSOLUTE Normal 1.0-4.3 [facility] Comment on above: Result Comment: DISR EGARDCorrected result: Previously reported as 1.7 10*3/uL (reference range: 1.0-4.3 10*3/uL) on 06/10/2023 at 0109 EDT. Performed By: #### L [id number] ####Senior Sustainability Advisor: HENNY WADE ([phone])[facility])[address] [place] [address] LYMPHOCYTES RELATIVE Normal 15.0-45.0 [facility] Comment on above: Result Comment: DISR EGARDCorrected result: Previously reported as 27.3 % (reference range: 15.0-45.0 %) on 06/10/2023 at 0109 EDT. Performed By: #### L [id number] ####Senior Sustainability Advisor: HENNY WADE ([phone])[facility])[address] [place] [address] MCH Normal 26.0-34.0 [facility] Comment on above: Result Comment: DISR EGARDCorrected result: Previously reported as 23.3 pg (reference range: 26.0-34.0 pg) on 06/10/2023 at 0109 EDT. Performed By: #### L [id number] ####Senior Sustainability Advisor: HENNY WADE ([phone])[facility])[address] [place] [address] MCHC Normal 30.5-36.0 [facility] Comment on above: Result Comment: DISR EGARDCorrected result: Previously reported as 30.3 % (reference range: 30.5-36.0 %) on 06/10/2023 at 0109 EDT. Performed By: #### L [id number] ####Senior Sustainability Advisor: HENNY WADE ([phone])[address] MCV Normal 77.0-99.0 [facility] Comment on above: Result Comment: DISR EGARDCorrected result: Previously reported as 77.1 fL (reference range: 77.0-99.0 fL) on 06/10/2023 at 0109 EDT. Performed By: #### L [id number] ####Senior Sustainability Advisor: HENNY WADE ([phone])[facility])[address] [place] [address] MONOCYTES ABSOLUTE Normal 0.0-0.9 [facility] Comment on above: Result Comment: DISR EGARDCorrected result: Previously reported as 0.4 10*3/uL (reference range: 0.0-0.9 10*3/uL) on 06/10/2023 at 0109 EDT. Performed By: #### L [id number] ####Senior Sustainability Advisor: HENNY WADE ([phone])[facility])[address] [place] [address] MONOCYTES RELATIVE Normal 5.0-13.0 [facility] Comment on above: Result Comment: DISR EGARDCorrected result: Previously reported as 6.5 % (reference range: 5.0-13.0 %) on 06/10/2023 at 0109 EDT. Performed By: #### L [id number] ####Senior Sustainability Advisor: HENNY WADE ([phone])[facility])[address] [place] [address] MPV Normal 9.0-12.7 [facility] Comment on above: Result Comment: DISR EGARDCorrected result: Previously reported as 11.6 fL (reference range: 9.0-12.7 fL) on 06/10/2023 at 0109 EDT. Performed By: #### L [id number] ####Senior Sustainability Advisor: HENNY WADE ([phone])[facility])[address] [place] [address] NEUTROPHILS ABSOLUTE Normal 1.8-7.5 [facility] Comment on above: Result Comment: DISR EGARDCorrected result: Previously reported as 3.9 10*3/uL (reference range: 1.8-7.5 10*3/uL) on 06/10/2023 at 0109 EDT. Performed By: #### L [id number] ####Senior Sustainability Advisor: HENNY WADE ([phone])[facility])[address] [place] [address] NEUTROPHILS RELATIVE Normal 38.0-82.0 [facility] Comment on above: Result Comment: DISR EGARDCorrected result: Previously reported as 62.3 % (reference range: 38.0-82.0 %) on 06/10/2023 at 0109 EDT. Performed By: #### L [id number] ####Senior Sustainability Advisor: HENNY WADE ([phone])[facility])[address] [place] [address] NRBC Normal 0.0-2.0 [facility] Comment on above: Result Comment: Enrique ected result: Previously reported as 0.0 /100 WBCs (reference range: 0.0-2.0 /100 WBCs) on 06/10/2023 at 0109 EDT. Performed By: #### L [id number] ####Senior Sustainability Advisor: HENNY WADE ([phone])[address] PLATELET COUNT Normal 140-440 [facility] Comment on above: Result Comment: DISR EGARDCorrected result: Previously reported as 291 10*3/uL (reference range: 140-440 10*3/uL) on 06/10/2023 at 0109 EDT. Performed By: #### L [id number] ####Senior Sustainability Advisor: HENNY WADE ([phone])[address] RBC Normal 3.80-5.20 [facility] Comment on above: Result Comment: DISR EGARDCorrected result: Previously reported as 4.07 10*6/uL (reference range: 3.80-5.20 10*6/uL) on 06/10/2023 at 0109 EDT. Performed By: #### L [id number] ####Senior Sustainability Advisor: HENNY WADE ([phone])[address] RDW Normal 11.5-15.0 [facility] Comment on above: Result Comment: DISR EGARDCorrected result: Previously reported as 19.7 % (reference range: 11.5-15.0 %) on 06/10/2023 at 0109 EDT. Performed By: #### L [id number] ####Senior Sustainability Advisor: HENNY WADE ([phone])[address] WBC Normal 3.6-10.7 [facility] Comment on above: Result Comment: DISR EGARDCorrected result: Previously reported as 6.2 10*3/uL (reference range: 3.6-10.7 10*3/uL) on 06/10/2023 at 0109 EDT. Performed By: #### L [id number] ####Senior Sustainability Advisor: HENNY WADE ([phone])[address] Calcium.ionized [Moles/Vol]O rdered By: Kelly Arzola on 06-10-2023 Calcium.ionized (Bld) [Moles/Vol] 3.70 mg/dL Low 4.30 - 5.20 mg/dL [facility] Interpretation and review of laboratory results Abnormal [facility] PH, IONIZED CALCIUM 7.44 7.31 - 7.46 [facility] Calcium.ionized [Moles/Vol]o n 06-10-2023 Calcium.ionized (Bld) [Moles/Vol] [facility] Comment on above: DISREGARD Corrected result: Previously reported as 3.80 mg/dL (reference range: 4.30-5.20 mg/dL) on 06/10/2023 at 0107 EDT. PH, IONIZED CALCIUM [facility] Comment on above: DISREGARD Corrected result: Previously reported as 7.41 (reference range: 7.31-7.46) on 06/10/2023 at 0107 EDT. DISREGARD. TPN contamination. [facility] - Chemistry and C hemistry - challengeOrdered By: Trupti Shafer on 06-10-2023 Potassium [Moles/Vol] 4.5 mmol/L 3.5 - 5.1 mmol/L [facility] - Chemistry and C hemistry - challengeon 06-10-2023 Magnesium [Mass/Vol] 2.1 mg/dL 1.6 - 2 .3 mg/dL [facility] - Drug toxicology on 06-10-2023 Zinc [Mass/Vol] 89.0 ug/dL 60.0 - 120.0 ug/dL [facility] Comment on above: INTERPRETIVE INFORMA TION: Zinc, Serum or Plasma Elevated results may be due to skin or collection-related contamination, including the use of a noncertified metal-free collection/transport tube. If contamination concerns exist due to elevated levels of serum/plasma zinc, confirmation with a second specimen collected in a certified metal-free tube is recommended. Circulating zinc concentrations are dependent on albumin status and are depressed with malnutrition. Zinc may also be lowered with infection, inflammation, stress, oral contraceptives, and . Zinc may be elevated with zinc supplementation or fasting. Elevated zinc concentrations may interfere with copper absorption. This test was developed and its performance characteristics determined by [facility]. It has not been cleared or approved by the [place] Food and Drug Administration. This test was performed in a CLIA certified laboratory and is intended for clinical purposes. Performed By: [facility] [address] [place] [id number] [employer] Specialist: Liborio Martinez MD, PhD CLIA Number: [id number] MAGNESIUMon 06-10-2023 Magnesium [Mass/Vol] 2.1 mg/dL Normal 1.6-2.3 [facility] Comment on above: Performed By: #### L AB15, [id number], [id number] ####Senior Sustainability Advisor: HENNY WADE ([phone])[facility])[address] [place] [address] No Panel Informationon 06-09 [facility] Interpretation and review of laboratory results Normal [facility] PHOSPHORUSon 06-10-2023 Phosphate [Mass/Vol] 4.0 mg/dL Normal 2.5-4.5 [facility] Comment on above: Performed By: #### L AB15, [id number], [id number] ####Senior Sustainability Advisor: HENNY WADE ([phone])[facility])[address] [place] [address] POTASSIUMon 06-10-2023 Potassium [Moles/Vol] 4.5 mmol/L Normal 3.5-5.1 [facility] Comment on above: Performed By: #### L [id number] ####Senior Sustainability Advisor: HENNY WADE ([phone])[facility])[address] [place] [address] [place] Phosphate [Moles/Vol]on 05-23 Phosphate [Mass/Vol] 4.0 mg/dL 2.5 - 4 .5 mg/dL [facility] Potassium [Moles/Vol]Ordered By: Trupti Shafer on 06-10-2023 Interpretation and review of laboratory results Normal [facility] Progress Noteon 06-10-2023 Progress Note Normal [facility] Progress Note Normal [facility] BASIC METABOLIC PANELon 05-23 Anion gap [Moles/Vol] 6 mmol/L Normal 3-13 [facility] Comment on above: Performed By: #### L AB15 ####Senior Sustainability Advisor: HENNY WADE ([phone])[facility] ([facility])[address] [place] [address] Calcium [Mass/Vol] 8.6 mg/dL Normal 8.4-10.4 [facility] Comment on above: Performed By: #### L AB15 ####Senior Sustainability Advisor: HENNY WADE ([phone])[facility] ([facility])[address] [place] [address] Chloride [Moles/Vol] 102 mmol/L Normal 98-107 [facility] Comment on above: Performed By: #### L AB15 ####Senior Sustainability Advisor: HENNY WADE ([phone])[facility] ([facility])[address] [place] [address] [place] CO2 [Moles/Vol] 29 mmol/L Normal 22-30 [facility] Comment on above: Performed By: #### L AB15 ####Senior Sustainability Advisor: HENNY WADE ([phone])[facility] ([facility])[address] [place] [address] Creatinine [Mass/Vol] 0.42 mg/dL Low 0.52-1.04 [facility] Comment on above: Performed By: #### L AB15 ####Senior Sustainability Advisor: HENNY WADE ([phone])[facility] ([facility])[address] [place] [address] [place] GLOMERULAR FILTRATION RATE ML/MIN/1.73 SQ M.PREDICTED >90.0 Normal >60.0 [facility] Comment on above: Result Comment: Calc ulation based on the Chronic Kidney Disease Epidemiology Collaboration (CKD-EPI) equation refit without adjustment for race Performed By: #### L AB15 ####Senior Sustainability Advisor: HENNY WADE ([phone])[facility] ([facility])[address] [place] [address] [place] Glucose [Mass/Vol] 102 mg/dL High 70-100 [facility] Comment on above: Performed By: #### L AB15 ####Senior Sustainability Advisor: HENNY WADE ([phone])[facility] ([facility])[address] [place] [address] [place] Potassium [Moles/Vol] 3.7 mmol/L Normal 3.5-5.1 [facility] Comment on above: Performed By: #### L AB15 ####Senior Sustainability Advisor: HENNY WADE ([phone])[facility] ([facility])[address] [place] [address] Sodium [Moles/Vol] 137 mmol/L Normal 135-145 [facility] Comment on above: Performed By: #### L AB15 ####Senior Sustainability Advisor: HENNY WADE ([phone])[facility] ([facility])[address] [place] [address] Urea nitrogen [Mass/Vol] 9 mg/dL Normal 7-17 [facility] Comment on above: Performed By: #### L AB15 ####Senior Sustainability Advisor: HENNY WADE ([phone])[facility] ([facility])[address] [place] [address] Anion gap [Moles/Vol] 4 mmol/L Normal 3-13 [facility] Comment on above: Performed By: #### L AB99, LAB15, [id number], [id number] ####Senior Sustainability Advisor: HENNY WADE ([phone])[facility] ([facility])[address] [place] [address] [place] Calcium [Mass/Vol] 8.2 mg/dL Low 8.4-10.4 [facility] Comment on above: Performed By: #### L AB99, LAB15, [id number], [id number] ####Senior Sustainability Advisor: HENNY WADE ([phone])[facility] ([facility])[address] [place] [address] [place] Chloride [Moles/Vol] 102 mmol/L Normal 98-107 [facility] Comment on above: Performed By: #### L AB99, LAB15, [id number], [id number] ####Senior Sustainability Advisor: HENNY WADE ([phone])[facility] ([facility])[address] [place] [address] CO2 [Moles/Vol] 31 mmol/L High 22-30 [facility] Comment on above: Performed By: #### L AB99, LAB15, FNI265, [id number] ####Senior Sustainability Advisor: HENNY WADE ([phone])[facility] ([facility])[address] [place] [address] Creatinine [Mass/Vol] 0.42 mg/dL Low 0.52-1.04 [facility] Comment on above: Performed By: #### L AB99, LAB15, FBS616, QMC353 ####Senior Sustainability Advisor: HENNY WADE ([phone])[facility] ([facility])[address] [place] [address] GLOMERULAR FILTRATION RATE ML/MIN/1.73 SQ M.PREDICTED >90.0 Normal >60.0 [facility] Comment on above: Result Comment: Calc ulation based on the Chronic Kidney Disease Epidemiology Collaboration (CKD-EPI) equation refit without adjustment for race Performed By: #### L AB99, LAB15, CCE259, SGG168 ####Senior Sustainability Advisor: HENNY WADE ([phone])[facility] ([facility])[address] [place] [address] Glucose [Mass/Vol] 107 mg/dL High 70-100 [facility] Comment on above: Performed By: #### L AB99, LAB15, KAG702, [id number] ####Senior Sustainability Advisor: HENNY WADE ([phone])[facility])[address] [place] [address] Potassium [Moles/Vol] 3.0 mmol/L Low 3.5-5.1 [facility] Comment on above: Performed By: #### L AB99, LAB15, OMK011, IGD579 ####Senior Sustainability Advisor: HENNY AWDE ([phone])[facility] ([facility])[address] [place] [address] Sodium [Moles/Vol] 138 mmol/L Normal 135-145 [facility] Comment on above: Performed By: #### L AB99, LAB15, MRU430, AIV180 ####Senior Sustainability Advisor: HENNY WADE ([phone])[facility] ([facility])[address] [place] [address] Urea nitrogen [Mass/Vol] 8 mg/dL Normal 7-17 [facility] Comment on above: Performed By: #### L AB99, LAB15, UQI430, CZP179 ####Senior Sustainability Advisor: HENNY WADE ([phone])[facility] ([facility])[address] [place] [address] Basic metabolic 1998 panelon 06-09-2023 Anion gap [Moles/Vol] 6 mmol/L 3 - 13 mmol/L [facility] Calcium [Mass/Vol] 8.6 mg/dL 8.4 - 10. 4 mg/dL [facility] Chloride [Moles/Vol] 102 mmol/L 98 - 10 7 mmol/L [facility] CO2 [Moles/Vol] 29 mmol/L 22 - 30 mmol/L [facility] Creatinine [Mass/Vol] 0.42 mg/dL Low 0.52 - 1.04 mg/dL [facility] GFR/1.73 sq M.predicted MDRD (S/P/Bld) [Vol rate/Area] - PINF [facility] Comment on above: Calculation based on the Chronic Kidney Disease Epidemiology Collaboration (CKD-EPI) equation refit without adjustment for race Glucose [Mass/Vol] 102 mg/dL High 70 - 100 mg/dL [facility] Interpretation and review of laboratory results Abnormal [facility] Potassium [Moles/Vol] 3.7 mmol/L 3.5 - 5.1 mmol/L [facility] Sodium [Moles/Vol] 137 mmol/L 135 - 145 mmol/L [facility] Urea nitrogen [Mass/Vol] 9 mg/dL 7 - 17 mg/dL [facility] Anion gap [Moles/Vol] 4 mmol/L 3 - 13 mmol/L [facility] Calcium [Mass/Vol] 8.2 mg/dL Low 8.4 - 10. 4 mg/dL [facility] Chloride [Moles/Vol] 102 mmol/L 98 - 10 7 mmol/L [facility] CO2 [Moles/Vol] 31 mmol/L High 22 - 30 mmol/L [facility] Creatinine [Mass/Vol] 0.42 mg/dL Low 0.52 - 1.04 mg/dL [facility] GFR/1.73 sq M.predicted MDRD (S/P/Bld) [Vol rate/Area] - PINF [facility] Comment on above: Calculation based on the Chronic Kidney Disease Epidemiology Collaboration (CKD-EPI) equation refit without adjustment for race Glucose [Mass/Vol] 107 mg/dL High 70 - 100 mg/dL [facility] Potassium [Moles/Vol] 3.0 mmol/L Low 3.5 - 5.1 mmol/L [facility] Sodium [Moles/Vol] 138 mmol/L 135 - 145 mmol/L [facility] Urea nitrogen [Mass/Vol] 8 mg/dL 7 - 17 mg/dL [facility] CARECOORDon 06-09-2023 [facility] Normal [facility] CBC W Auto Differential pane l (Bld)on 06-09-2023 Basophils (Bld) [#/Vol] 0.0 10*3/uL 0.0 - 0.2 10*3/uL [facility] Basophils/100 WBC (Bld) 0.5 % 0.0 - 2.0 % [facility] Eosinophils (Bld) [#/Vol] 0.2 10*3/uL 0.0 - 0.5 10*3/uL [facility] Eosinophils/100 WBC (Bld) 3.2 % 0.0 - 6.0 % [facility] Erythrocyte distribution width (RBC) [Ratio] 19.3 % High 11.5 - 15.0 % [facility] Hematocrit (Bld) [Volume fraction] 32.2 % Low 35.0 - 47.0 % [facility] Hemoglobin (Bld) [Mass/Vol] 9.8 g/dL Low 11.7 - 16.0 g/dL [facility] Immature granulocytes (Bld) [#/Vol] 0.0 10*3/uL NINF - 0.1 10*3/uL [facility] Immature granulocytes/100 WBC (Bld) 0.5 % 0.0 - 2.0 % [facility] Interpretation and review of laboratory results Abnormal [facility] Lymphocytes (Bld) [#/Vol] 1.7 10*3/uL 1.0 - 4.3 10*3/uL [facility] Lymphocytes/100 WBC (Bld) 27.9 % 15.0 - 45.0 % [facility] MCH (RBC) [Entitic mass] 22.3 pg Low 26.0 - 34.0 pg [facility] MCHC (RBC) [Mass/Vol] 30.4 % Low 30.5 - 36.0 % [facility] MCV (RBC) [Entitic vol] 73.3 fL Low 77.0 - 99.0 fL [facility] Monocytes (Bld) [#/Vol] 0.5 10*3/uL 0.0 - 0.9 10*3/uL [facility] Monocytes/100 WBC (Bld) 8.2 % 5.0 - 13.0 % [facility] Neutrophils (Bld) [#/Vol] 3.6 10*3/uL 1.8 - 7.5 10*3/uL [facility] Neutrophils/100 WBC (Bld) 59.7 % 38.0 - 82.0 % [facility] Nucleated RBC/100 WBC (Bld) [Ratio] 0.0 % [facility] Platelet mean volume (Bld) [Entitic vol] 11.4 fL 9.0 - 12.7 fL [facility] Platelets (Bld) [#/Vol] 307 10*3/uL 140 - 440 10*3/uL [facility] RBC (Bld) [#/Vol] 4.39 10*6/uL 3.80 - 5.2 0 10*6/uL [facility] WBC (Bld) [#/Vol] 6.0 10*3/uL 3.6 - 10.7 10*3/uL [facility] CBC WITH AUTO DIFFERENTIALon 06-09-2023 Basophils (Bld) [#/Vol] 0.0 10*3/uL Normal 0.0-0.2 [facility] Comment on above: Performed By: #### L [id number] ####Senior Sustainability Advisor: HENNY WADE ([phone])[facility] ([address] Basophils/100 WBC (Bld) 0.5 % Normal 0.0-2.0 [facility] Comment on above: Performed By: #### L [id number] ####Senior Sustainability Advisor: HENNY WADE ([phone])[facility])[address] [place] [address] Eosinophils (Bld) [#/Vol] 0.2 10*3/uL Normal 0.0-0.5 [facility] Comment on above: Performed By: #### L [id number] ####Senior Sustainability Advisor: HENNY WADE ([phone])[facility])[address] [place] [address] Eosinophils/100 WBC (Bld) 3.2 % Normal 0.0-6.0 [facility] Comment on above: Performed By: #### L [id number] ####Senior Sustainability Advisor: HENNY WADE ([phone])[facility])[address] [place] [address] Erythrocyte distribution width (RBC) [Ratio] 19.3 % High 11.5-15.0 [facility] Comment on above: Performed By: #### L [id number] ####Senior Sustainability Advisor: HENNY WADE ([phone])[facility])[address] [place] [address] Hematocrit (Bld) [Volume fraction] 32.2 % Low 35.0-47.0 [facility] Comment on above: Performed By: #### L [id number] ####Senior Sustainability Advisor: HENNY WADE ([phone])[facility])[address] [place] [address] Hemoglobin (Bld) [Mass/Vol] 9.8 g/dL Low 11.7-16.0 [facility] Comment on above: Performed By: #### L [id number] ####Senior Sustainability Advisor: HENNY WADE ([phone])[facility])[address] [place] [address] IMMATURE GRANS % 0.5 % Normal 0.0-2.0 [facility] Comment on above: Performed By: #### L [id number] ####Senior Sustainability Advisor: HENNY WADE ([phone])[facility])[address] [place] [address] IMMATURE GRANS ABSOLUTE 0.0 10*3/uL Normal <0.1 [facility] Comment on above: Performed By: #### L [id number] ####Senior Sustainability Advisor: HENNY WADE ([phone])[facility])[address] [place] [address] Lymphocytes (Bld) [#/Vol] 1.7 10*3/uL Normal 1.0-4.3 [facility] Comment on above: Performed By: #### L [id number] ####Senior Sustainability Advisor: HENNY WADE ([phone])[address] Lymphocytes/100 WBC (Bld) 27.9 % Normal 15.0-45.0 [facility] Comment on above: Performed By: #### L [id number] ####Senior Sustainability Advisor: HENNY WADE ([phone])[facility])[address] [place] [address] MCH (RBC) [Entitic mass] 22.3 pg Low 26.0-34.0 [facility] Comment on above: Performed By: #### L [id number] ####Senior Sustainability Advisor: HENNY WADE ([phone])[address] MCHC 30.4 % Low 30.5-36.0 [facility] Comment on above: Performed By: #### L [id number] ####Senior Sustainability Advisor: HENNY WADE ([phone])[address] MCV (RBC) [Entitic vol] 73.3 fL Low 77.0-99.0 [facility] Comment on above: Performed By: #### L [id number] ####Senior Sustainability Advisor: HENNY [phone])[facility] ([facility])[address] [place] [address] Monocytes (Bld) [#/Vol] 0.5 10*3/uL Normal 0.0-0.9 [facility] Comment on above: Performed By: #### L [id number] ####Senior Sustainability Advisor: HENNY WADE ([phone])[facility] ([facility])[address] [place] [address] Monocytes/100 WBC (Bld) 8.2 % Normal 5.0-13.0 [facility] Comment on above: Performed By: #### L [id number] ####Senior Sustainability Advisor: HENNY WADE ([phone])[facility] ([facility])[address] [place] [address] NEUTROPHILS ABSOLUTE 3.6 10*3/uL Normal 1.8-7.5 [facility] Comment on above: Performed By: #### L [id number] ####Senior Sustainability Advisor: HENNY WADE ([phone])[facility] ([facility])[address] [place] [address] Neutrophils/100 WBC (Bld) 59.7 % Normal 38.0-82.0 [facility] Comment on above: Performed By: #### L [id number] ####Senior Sustainability Advisor: HENNY WADE ([phone])[facility] ([facility])[address] [place] [address] NRBC 0.0 /100 WBCs Normal 0.0-2.0 [facility] Comment on above: Performed By: #### L [id number] ####Senior Sustainability Advisor: HENNY WADE ([phone])[facility] ([facility])[address] [place] [address] Platelet mean volume (Bld) [Entitic vol] 11.4 fL Normal 9.0-12.7 [facility] Comment on above: Performed By: #### L [id number] ####Senior Sustainability Advisor: HENNY WADE ([phone])[facility] ([facility])[address] [place] [address] [place] Platelets (Bld) [#/Vol] 307 10*3/uL Normal 140-440 [facility] Comment on above: Performed By: #### L [id number] ####Senior Sustainability Advisor: HENNY WADE ([phone])[facility] ([facility])[address] [place] [address] RBC (Bld) [#/Vol] 4.39 10*6/uL Normal 3.80-5.20 [facility] Comment on above: Performed By: #### L [id number] ####Senior Sustainability Advisor: HENNY WADE ([phone])[facility] ([facility])[address] [place] [address] WBC (Bld) [#/Vol] 6.0 10*3/uL Normal 3.6-10.7 [facility] Comment on above: Performed By: #### L [id number] ####Senior Sustainability Advisor: HENNY WADE ([phone])[facility] ([facility])[address] [place] [address] ECG 12-LEADon 06-09-2023 ECG 12-LEAD IMPRESSION: Atrial fibrillation Ventricular premature complex Borderline T abnormalities, diffuse leads Electronically Signed On 06-09-2023 16:12:33 EDT by Stan Patel Normal [facility] LIPASEon 06-09-2023 Lipase [Catalytic activity/Vol] 1682 U/L High 23-300 [facility] Comment on above: Performed By: #### L AB99, LAB15, [id number], [id number] ####Senior Sustainability Advisor: HENNY WADE ([phone])[facility] ([facility])[address] [place] [address] Laboratory - Chemistry and C hemistry - challengeon 06-09-2023 Lipase [Catalytic activity/Vol] 1682 U/L High 23 - 300 U/L [facility] Magnesium [Mass/Vol] 2.2 mg/dL 1.6 - 2 .3 mg/dL [facility] MAGNESIUMon 06-09-2023 Magnesium [Mass/Vol] 2.2 mg/dL Normal 1.6-2.3 [facility] Comment on above: Performed By: #### L AB99, LAB15, [id number], [id number] ####Senior Sustainability Advisor: HENNY WADE ([phone])[facility] ([facility])[address] [place] [address] [place] Magnesium [Mass/Vol]on 06-08 Interpretation and review of laboratory results Normal [facility] No Panel InformationOrdered By: Stan Patel on 06-09-2023 P [place] 0 degrees [facility] Work Phone: UT Interval 0 ms [employer] Work Phone: QRS Stanton 26 degrees [employer] Work Phone: QRSD Interval 89 ms [employer] Work Phone: QT Interval 327 ms [employer] Work Phone: QTC Interval 450 ms [employer] Work Phone: T Wave Stanton -36 degrees [employer] Work Phone: [employer] Work Phone: No Panel Informationon 06-08 Atrial fibrillation Ventricular premature complex Borderline T abnormalities, diffuse leads Electronically Signed On 06-09-2023 16:12:33 EDT by Stan Patel CV Stan Bañuelos MD - 06/09/2023 IMPRESSION: Atrial fibrillation Ventricular premature complex Borderline T abnormalities, diffuse leads Electronically Signed On 06-09-2023 16:12:33 EDT by Stan Patel [facility] Interpretation and review of laboratory results Abnormal [facility] PHOSPHORUSon 06-09-2023 Phosphate [Mass/Vol] 4.8 mg/dL High 2.5-4.5 [facility] Comment on above: Performed By: #### L AB99, LAB15, [id number], [id number] ####Senior Sustainability Advisor: HENNY WADE ([phone])[facility] ([facility])[address] [place] [address] [place] Phosphate [Moles/Vol]on 05-23 Phosphate [Mass/Vol] 4.8 mg/dL High 2.5 - 4 .5 mg/dL [facility] Progress Noteon 06-09-2023 Progress Note Normal [facility] Progress Note Normal [facility] Progress Note Normal [facility] Vital signsOrdered By: Enedelia Patel on 06-09-2023 Heart rate 114 /min bpm [facility] Work Phone: BASIC METABOLIC PANELon 05-23 Anion gap [Moles/Vol] 8 mmol/L Normal 3-13 [facility] Comment on above: Performed By: #### L AB18, LAB15, LAB99, LAB20, [id number], [id number] ####Senior Sustainability Advisor: HENNY WADE ([phone])[facility])[address] [place] [address] Calcium [Mass/Vol] 7.9 mg/dL Low 8.4-10.4 [facility] Comment on above: Performed By: #### L AB18, LAB15, LAB99, LAB20, ZCN221, IHL521 ####Senior Sustainability Advisor: HENNY WADE ([phone])[facility] ([facility])[address] [place] [address] [place] Chloride [Moles/Vol] 104 mmol/L Normal 98-107 [facility] Comment on above: Performed By: #### L AB18, LAB15, LAB99, LAB20, [id number], YHR105 ####Senior Sustainability Advisor: HENNY WADE ([phone])[facility])[address] [place] [address] [place] CO2 [Moles/Vol] 24 mmol/L Normal 22-30 [facility] Comment on above: Performed By: #### L AB18, LAB15, LAB99, LAB20, RTA760, [id number] ####Senior Sustainability Advisor: HENNY WADE ([phone])[facility])[address] [place] [address] [place] Creatinine [Mass/Vol] 0.43 mg/dL Low 0.52-1.04 [facility] Comment on above: Performed By: #### L AB18, LAB15, LAB99, LAB20, OTL686, [id number] ####Senior Sustainability Advisor: HENNY WADE ([phone])[facility])[address] [place] [address] GLOMERULAR FILTRATION RATE ML/MIN/1.73 SQ M.PREDICTED >90.0 Normal >60.0 [facility] Comment on above: Result Comment: Calc ulation based on the Chronic Kidney Disease Epidemiology Collaboration (CKD-EPI) equation refit without adjustment for race Performed By: #### L AB18, LAB15, LAB99, LAB20, ZBG332, [id number] ####Senior Sustainability Advisor: HENNY WADE ([phone])[facility])[address] [place] [address] Glucose [Mass/Vol] 109 mg/dL High 70-100 [facility] Comment on above: Performed By: #### L AB18, LAB15, LAB99, LAB20, TNZ400, [id number] ####Senior Sustainability Advisor: HENNY WADE ([phone])[facility] ([facility])[address] [place] [address] Potassium [Moles/Vol] 3.1 mmol/L Low 3.5-5.1 [facility] Comment on above: Performed By: #### L AB18, LAB15, LAB99, LAB20, SQH562, [id number] ####Senior Sustainability Advisor: HENNY WADE ([phone])[facility])[address] [place] [address] Sodium [Moles/Vol] 137 mmol/L Normal 135-145 [facility] Comment on above: Performed By: #### L AB18, LAB15, LAB99, LAB20, OIF696, [id number] ####Senior Sustainability Advisor: HENNY WADE ([phone])[facility])[address] [place] [address] [place] Urea nitrogen [Mass/Vol] 4 mg/dL Low 7-17 [facility] Comment on above: Performed By: #### L AB18, LAB15, LAB99, LAB20, ZLT517, [id number] ####Senior Sustainability Advisor: HENNY WADE ([phone])[facility])[address] [place] [address] Basic metabolic 1998 panelon 06-08-2023 Anion gap [Moles/Vol] 8 mmol/L 3 - 13 mmol/L [facility] Calcium [Mass/Vol] 7.9 mg/dL Low 8.4 - 10. 4 mg/dL [facility] Chloride [Moles/Vol] 104 mmol/L 98 - 10 7 mmol/L [facility] CO2 [Moles/Vol] 24 mmol/L 22 - 30 mmol/L [facility] Creatinine [Mass/Vol] 0.43 mg/dL Low 0.52 - 1.04 mg/dL [facility] GFR/1.73 sq M.predicted MDRD (S/P/Bld) [Vol rate/Area] - PINF [facility] Comment on above: Calculation based on the Chronic Kidney Disease Epidemiology Collaboration (CKD-EPI) equation refit without adjustment for race Glucose [Mass/Vol] 109 mg/dL High 70 - 100 mg/dL [facility] Interpretation and review of laboratory results Abnormal [facility] Potassium [Moles/Vol] 3.1 mmol/L Low 3.5 - 5.1 mmol/L [facility] Sodium [Moles/Vol] 137 mmol/L 135 - 145 mmol/L [facility] Urea nitrogen [Mass/Vol] 4 mg/dL Low 7 - 17 mg/dL [facility] CALCIUM, IONIZEDon CALCIUM IONIZED 3.20 mg/dL Low 4.30-5.20 [facility] Comment on above: Performed By: #### L [id number] ####Senior Sustainability Advisor: HENNY WADE ([phone])[facility] ([facility])[address] [place] [address] PH, IONIZED CALCIUM 7.48 High 7.31-7.46 [facility] Comment on above: Performed By: #### L AB54 ####Senior Sustainability Advisor: HENNY WADE ([phone])[facility] ([facility])[address] [place] [address] CARECOORDon 06-08-2023 [place] Normal [facility] CBC W Auto Differential pane l (Bld)on 06-08-2023 Basophils (Bld) [#/Vol] 0.0 10*3/uL 0.0 - 0.2 10*3/uL [facility] Basophils/100 WBC (Bld) 0.4 % 0.0 - 2.0 % [facility] Eosinophils (Bld) [#/Vol] 0.2 10*3/uL 0.0 - 0.5 10*3/uL [facility] Eosinophils/100 WBC (Bld) 3.0 % 0.0 - 6.0 % [facility] Erythrocyte distribution width (RBC) [Ratio] 19.1 % High 11.5 - 15.0 % [facility] Hematocrit (Bld) [Volume fraction] 35.9 % 35.0 - 47.0 % [facility] Hemoglobin (Bld) [Mass/Vol] 10.7 g/dL Low 11.7 - 16.0 g/dL [facility] Immature granulocytes (Bld) [#/Vol] 0.0 10*3/uL NINF - 0.1 10*3/uL [facility] Immature granulocytes/100 WBC (Bld) 0.5 % 0.0 - 2.0 % [facility] Interpretation and review of laboratory results Abnormal [facility] Lymphocytes (Bld) [#/Vol] 2.1 10*3/uL 1.0 - 4.3 10*3/uL [facility] Lymphocytes/100 WBC (Bld) 28.7 % 15.0 - 45.0 % [facility] MCH (RBC) [Entitic mass] 21.7 pg Low 26.0 - 34.0 pg [facility] MCHC (RBC) [Mass/Vol] 29.8 % Low 30.5 - 36.0 % [facility] MCV (RBC) [Entitic vol] 72.8 fL Low 77.0 - 99.0 fL [facility] Monocytes (Bld) [#/Vol] 0.6 10*3/uL 0.0 - 0.9 10*3/uL [facility] Monocytes/100 WBC (Bld) 7.8 % 5.0 - 13.0 % [facility] Neutrophils (Bld) [#/Vol] 4.3 10*3/uL 1.8 - 7.5 10*3/uL [facility] Neutrophils/100 WBC (Bld) 59.6 % 38.0 - 82.0 % [facility] Nucleated RBC/100 WBC (Bld) [Ratio] 0.0 % [facility] Platelet mean volume (Bld) [Entitic vol] 10.6 fL 9.0 - 12.7 fL [facility] Platelets (Bld) [#/Vol] 360 10*3/uL 140 - 440 10*3/uL [facility] RBC (Bld) [#/Vol] 4.93 10*6/uL 3.80 - 5.2 0 10*6/uL [facility] WBC (Bld) [#/Vol] 7.3 10*3/uL 3.6 - 10.7 10*3/uL [facility] CBC WITH AUTO DIFFERENTIALon 06-08-2023 Basophils (Bld) [#/Vol] 0.0 10*3/uL Normal 0.0-0.2 [facility] Comment on above: Performed By: #### L [id number] ####Senior Sustainability Advisor: HENNY WADE ([phone])[facility])[address] [place] [address] Basophils/100 WBC (Bld) 0.4 % Normal 0.0-2.0 [facility] Comment on above: Performed By: #### L [id number] ####Senior Sustainability Advisor: HENNY WADE ([phone])[facility])[address] [place] [address] Eosinophils (Bld) [#/Vol] 0.2 10*3/uL Normal 0.0-0.5 [facility] Comment on above: Performed By: #### L [id number] ####Senior Sustainability Advisor: HENNY WADE ([phone])[facility])[address] [place] [address] Eosinophils/100 WBC (Bld) 3.0 % Normal 0.0-6.0 [facility] Comment on above: Performed By: #### L [id number] ####Senior Sustainability Advisor: HENNY WADE ([phone])[facility])[address] [place] [address] Erythrocyte distribution width (RBC) [Ratio] 19.1 % High 11.5-15.0 [facility] Comment on above: Performed By: #### L [id number] ####Senior Sustainability Advisor: HENNY WADE ([phone])[facility])[address] [place] [address] Hematocrit (Bld) [Volume fraction] 35.9 % Normal 35.0-47.0 [facility] Comment on above: Performed By: #### L [id number] ####Senior Sustainability Advisor: HENNY WADE ([phone])[facility])[address] [place] [address] Hemoglobin (Bld) [Mass/Vol] 10.7 g/dL Low 11.7-16.0 [facility] Comment on above: Performed By: #### L [id number] ####Senior Sustainability Advisor: HENNY WADE ([phone])[facility])[address] [place] [address] IMMATURE GRANS % 0.5 % Normal 0.0-2.0 [facility] Comment on above: Performed By: #### L [id number] ####Senior Sustainability Advisor: HENNY WADE ([phone])[facility])[address] [place] [address] IMMATURE GRANS ABSOLUTE 0.0 10*3/uL Normal <0.1 [facility] Comment on above: Performed By: #### L [id number] ####Senior Sustainability Advisor: HENNY WADE ([phone])[facility])[address] [place] [address] Lymphocytes (Bld) [#/Vol] 2.1 10*3/uL Normal 1.0-4.3 [facility] Comment on above: Performed By: #### L [id number] ####Senior Sustainability Advisor: HENNY WADE ([phone])[facility])[address] [place] [address] Lymphocytes/100 WBC (Bld) 28.7 % Normal 15.0-45.0 [facility] Comment on above: Performed By: #### L [id number] ####Senior Sustainability Advisor: HENNY WADE ([phone])[facility] ([facility])[address] [place] [address] MCH (RBC) [Entitic mass] 21.7 pg Low 26.0-34.0 [facility] Comment on above: Performed By: #### L [id number] ####Senior Sustainability Advisor: HENNY WADE ([phone])[facility])[address] [place] [address] MCHC 29.8 % Low 30.5-36.0 [facility] Comment on above: Performed By: #### L [id number] ####Senior Sustainability Advisor: HENNY WADE ([phone])[facility])[address] [place] [address] MCV (RBC) [Entitic vol] 72.8 fL Low 77.0-99.0 [facility] Comment on above: Performed By: #### L [id number] ####Senior Sustainability Advisor: HENNY WADE ([phone])[facility] ([facility])[address] [place] [address] Monocytes (Bld) [#/Vol] 0.6 10*3/uL Normal 0.0-0.9 [facility] Comment on above: Performed By: #### L [id number] ####Senior Sustainability Advisor: HENNY WADE ([phone])[facility])[address] [place] [address] Monocytes/100 WBC (Bld) 7.8 % Normal 5.0-13.0 [facility] Comment on above: Performed By: #### L [id number] ####Senior Sustainability Advisor: HENNY WADE ([phone])[facility])[address] [place] [address] NEUTROPHILS ABSOLUTE 4.3 10*3/uL Normal 1.8-7.5 [facility] Comment on above: Performed By: #### L [id number] ####Senior Sustainability Advisor: HENNY WADE ([phone])[facility])[address] [place] [address] Neutrophils/100 WBC (Bld) 59.6 % Normal 38.0-82.0 [facility] Comment on above: Performed By: #### L [id number] ####Senior Sustainability Advisor: HENNY WADE ([phone])[facility])[address] [place] [address] NRBC 0.0 /100 WBCs Normal 0.0-2.0 [facility] Comment on above: Performed By: #### L [id number] ####Senior Sustainability Advisor: HENNY WADE ([phone])[facility])[address] [place] [id number] Platelet mean volume (Bld) [Entitic vol] 10.6 fL Normal 9.0-12.7 [facility] Comment on above: Performed By: #### L [id number] ####Senior Sustainability Advisor: HENNY WADE ([phone])[facility])[address] [place] [address] Platelets (Bld) [#/Vol] 360 10*3/uL Normal 140-440 [facility] Comment on above: Performed By: #### L [id number] ####Senior Sustainability Advisor: HENNY WADE ([phone])[facility])[address] [place] [address] RBC (Bld) [#/Vol] 4.93 10*6/uL Normal 3.80-5.20 [facility] Comment on above: Performed By: #### L [id number] ####Senior Sustainability Advisor: HENNY WADE ([phone])[facility])[address] [place] [address] WBC (Bld) [#/Vol] 7.3 10*3/uL Normal 3.6-10.7 [facility] Comment on above: Performed By: #### L [id number] ####Senior Sustainability Advisor: HENNY WADE ([phone])[facility])[address] [place] [address] Calcium.ionized [Moles/Vol]o n 06-08-2023 Calcium.ionized (Bld) [Moles/Vol] 3.20 mg/dL Low 4.30 - 5.20 mg/dL [facility] Interpretation and review of laboratory results Abnormal [facility] PH, IONIZED CALCIUM 7.48 High 7.31 - 7.46 [facility] Consulton 06-08-2023 Consult Normal [facility] HEPATIC FUNCTION PANELon Albumin [Mass/Vol] 3.0 g/dL Low 3.5-5.0 [facility] Comment on above: Performed By: #### L AB18, LAB15, LAB99, LAB20, [id number], [id number] ####Senior Sustainability Advisor: HENNY WADE ([phone])[facility] ([facility])[address] [place] [address] ALP [Catalytic activity/Vol] 60 U/L Normal 38-126 [facility] Comment on above: Performed By: #### L AB18, LAB15, LAB99, LAB20, MLC497, [id number] ####Senior Sustainability Advisor: HENNY WADE ([phone])[facility] ([facility])[address] [place] [address] ALT [Catalytic activity/Vol] 175 U/L High 0-34 [facility] Comment on above: Performed By: #### L AB18, LAB15, LAB99, LAB20, [id number], [id number] ####Senior Sustainability Advisor: HENNY WADE ([phone])[facility])[address] [place] [address] [place] AST [Catalytic activity/Vol] 121 U/L High 15-46 [facility] Comment on above: Performed By: #### L AB18, LAB15, LAB99, LAB20, YBU133, [id number] ####Senior Sustainability Advisor: HENNY WADE ([phone])[facility])[address] [place] [address] [place] Bilirubin [Mass/Vol] 1.6 mg/dL High 0.2-1.3 [facility] Comment on above: Performed By: #### L AB18, LAB15, LAB99, LAB20, [id number], [id number] ####Senior Sustainability Advisor: HENNY WADE ([phone])[facility] ([facility])[address] [place] [address] Bilirubin.indirect [Mass/Vol] 0.0 mg/dL Normal 0.0-0.3 [facility] Comment on above: Performed By: #### L AB18, LAB15, LAB99, LAB20, WSL599, [id number] ####Senior Sustainability Advisor: HENNY WADE ([phone])[facility])[address] [place] [address] Protein [Mass/Vol] 6.1 g/dL Low 6.3-8.2 [facility] Comment on above: Performed By: #### L AB18, LAB15, LAB99, LAB20, LLU901, [id number] ####Senior Sustainability Advisor: HENNY WADE ([phone])[facility] ([facility])[address] [place] [address] Hepatic function 2000 panelo n 06-08-2023 Albumin [Mass/Vol] 3.0 g/dL Low 3.5 - 5.0 g/dL [facility] ALP [Catalytic activity/Vol] 60 U/L 38 - 126 U/L [facility] ALT [Catalytic activity/Vol] 175 U/L High 0 - 34 U/L [facility] AST [Catalytic activity/Vol] 121 U/L High 15 - 46 U/L [facility] Bilirubin [Mass/Vol] 1.6 mg/dL High 0.2 - 1 .3 mg/dL [facility] Bilirubin.conjugated [Mass/Vol] 0.0 mg/dL 0.0 - 0.3 mg/dL [facility] Protein [Mass/Vol] 6.1 g/dL Low 6.3 - 8.2 g/dL [facility] LIPASEon 06-08-2023 Lipase [Catalytic activity/Vol] 1786 U/L High 23-300 [facility] Comment on above: Performed By: #### L AB18, LAB15, LAB99, LAB20, YTD111, [id number] ####Senior Sustainability Advisor: HENNY WADE ([phone])[facility] ([facility])[address] [place] [address] LIPID PANELon 06-08-2023 Cholesterol [Mass/Vol] 114 mg/dL Normal <200 [facility] Comment on above: Performed By: #### L AB18, LAB15, LAB99, LAB20, TJS013, [id number] ####Senior Sustainability Advisor: HENNY WADE ([phone])[facility] ([facility])[address] [place] [address] Cholesterol in HDL [Mass/Vol] 18 mg/dL Low 40-60 [facility] Comment on above: Performed By: #### L AB18, LAB15, LAB99, LAB20, MEC128, [id number] ####Senior Sustainability Advisor: HENNY WADE ([phone])[facility] ([facility])[address] [place] [address] Cholesterol.total/Gerardo sterol in HDL [Mass ratio] 6 {ratio} Normal [facility] Comment on above: Result Comment: Ref Range:< 3 Low Risk for CHD3-6 Mod Risk for CHD> 6 High Risk for CHD Performed By: #### L AB18, LAB15, LAB99, LAB20, SZS687, [id number] ####Senior Sustainability Advisor: HENNY WADE ([phone])[facility] ([facility])[address] [place] [address] LOW DENSITY LIPOPROTEIN 68 mg/dL Normal 0-<100 [facility] Comment on above: Performed By: #### L AB18, LAB15, LAB99, LAB20, [id number], [id number] ####Senior Sustainability Advisor: HENNY WADE ([phone])[facility] ([facility])[address] [place] [address] Triglyceride [Mass/Vol] 142 mg/dL Normal <150 [facility] Comment on above: Performed By: #### L AB18, LAB15, LAB99, LAB20, UUY630, [id number] ####Senior Sustainability Advisor: HENNY WADE ([phone])[facility])[address] [place] [address] Laboratory - Chemistry and C hemistry - challengeon 06-08-2023 Glucose [Mass/Vol] 105 mg/dL High 70 - 100 mg/dL [facility] Glucose [Mass/Vol] 120 mg/dL High 70 - 100 mg/dL [facility] Lipase [Catalytic activity/Vol] 1786 U/L High 23 - 300 U/L [facility] Magnesium [Mass/Vol] 1.9 mg/dL 1.6 - 2 .3 mg/dL [facility]SH [facility] 4[facility]370 [facility]IU[facility] Gl[facility] [Mass/Vol] 106 mg/dL High 70 - 100 mg/dL [facility] Lipid 1996 panelon Cholesterol [Mass/Vol] 114 mg/dL NINF - 200 mg/dL [facility] Cholesterol in HDL [Mass/Vol] 18 mg/dL Low 40 - 60 mg/dL [facility] Cholesterol in LDL [Mass/Vol] 68 mg/dL 0 - <100 [facility] Cholesterol.total/Gerardo sterol in HDL [Mass ratio] 6 {ratio} [facility] Comment on above: Ref Range: < 3 Low Risk for CHD 3-6 Mod Risk for CHD > 6 High Risk for CHD Interpretation and review of laboratory results Abnormal [facility] Triglyceride [Mass/Vol] 142 mg/dL NINF - 150 mg/dL [facility] MAGNESIUMon 06-08-2023 Magnesium [Mass/Vol] 1.9 mg/dL Normal 1.6-2.3 [facility] Comment on above: Performed By: #### L AB18, LAB15, LAB99, LAB20, [id number], [id number] ####Senior Sustainability Advisor: HENNY WADE ([phone])[facility] ([facility])[address] [place] [address] No Panel Informationon 06-07 Interpretation and review of laboratory results Abnormal [facility] Performed by: [facility], [address] [place] [address] CLIA ID: [id number] [facility] Interpretation and review of laboratory results Abnormal [facility] Performed by: [facility], [address] [place], [place] [id number] CLIA ID: [id number] [facility] Interpretation and review of laboratory results Abnormal [facility] Interpretation and review of laboratory results Normal [facility] Interpretation and review of laboratory results Abnormal [facility] Performed by: [facility], [address] [place] [address] CLIA ID: [id number] [facility] Radiology Study observation (narrative) [facility] Radiology Study observation [facility]narrative) [facility] Study observation (narrative) [facility] PHOSPHORUSon 06-08-2023 Phosphate [Mass/Vol] 3.0 mg/dL Normal 2.5-4.5 [facility] Comment on above: Performed By: #### L AB18, LAB15, LAB99, LAB20, AOD958, [id number] ####Senior Sustainability Advisor: HENNY WADE ([phone])[facility] ([facility] Phosphate [Moles/Vol]on 05-23 Phosphate [Mass/Vol] 3.0 mg/dL 2.5 - 4 .5 mg/dL [facility] Progress Noteon 06-08-2023 Progress Note Normal [facility] Progress Note Normal [facility] Qnon 06-08-2023 Interpretation and review of laboratory results Normal [facility] US ABDOMEN COMPLETEon 2023 US ABDOMEN COMPLETE Normal [facility] US Abdomenon 06-08-2023 1. Echogenic liver suggesting hepatic steatosis. Report Dictated on Electronically Signed By: Weston Medrano MD Electronically Signed Date/Time: 06/08/2023 11:22 AM T [facility] Patient Name: ANNE MARIE BATES : 1995 Exam Date/Time: 06/08/2023 10:37 Procedure: US ABDOMEN COMPLETE Ordering Provider: CAMPBELL JOHN Reason For Exam: ABDOMINAL PAIN ULTRASOUND ABDOMEN COMPLETE EXAM DATE AND TIME: 06/08/2023 10:37 AM EDT INDICATION: 27 years Female with history of nausea, vomiting and abdominal pain COMPARISON: CT abdomen and pelvis dated June 03, 2023 TECHNIQUE: Complete ultrasound of abdomen FINDINGS: Pancreas: The pancreas is obscured by bowel gas Liver: Generalized increased echogenicity likely corresponding to fatty infiltration. Normal size and contour. No focal lesion identified. Gallbladder: Surgically absent. . Bile ducts: No intrahepatic and extrahepatic biliary dilatation Common bile duct: 6.9 mm Right kidney: Normal size measuring 13.2 cm. Normal parenchymal echogenicity without solid mass or hydronephrosis. Left kidney: Normal size measuring 13.2 cm. Normal parenchymal echogenicity without solid mass or hydronephrosis. Spleen: Normal size measuring 12.0 cm. Normal echogenicity without a lesion. Aorta and Inferior vena cava: Not well visualized due to overlying bowel gas Ascites: None [facility]OLOG[facility] Weston Medrano MD - 06/08/2023 [facility] 1995 [id number] Exam Date/Time: 06/08/2023 10:37 Procedure: US ABDOMEN COMPLETE Ordering Provider: CAMPBELL JOHN Reason For Exam: ABDOMINAL PAIN ULTRASOUND ABDOMEN COMPLETE EXAM DATE AND TIME: 06/08/2023 10:37 AM EDT INDICATION: 27 years Female with history of nausea, vomiting and abdominal pain COMPARISON: CT abdomen and pelvis dated June 03, 2023 TECHNIQUE: Complete ultrasound of abdomen FINDINGS: Pancreas: The pancreas is obscured by bowel gas Liver: Generalized increased echogenicity likely corresponding to fatty infiltration. Normal size and contour. No focal lesion identified. Gallbladder: Surgically absent. . Bile ducts: No intrahepatic and extrahepatic biliary dilatation Common bile duct: 6.9 mm Right kidney: Normal size measuring 13.2 cm. Normal parenchymal echogenicity without solid mass or hydronephrosis. Left kidney: Normal size measuring 13.2 cm. Normal parenchymal echogenicity without solid mass or hydronephrosis. Spleen: Normal size measuring 12.0 cm. Normal echogenicity without a lesion. Aorta and Inferior vena cava: Not well visualized due to overlying bowel gas Ascites: None IMPRESSION: 1. Echogenic liver suggesting hepatic steatosis. Report Dictated on Electronically Signed By: Weston Medrano MD Electronically Signed Date/Time: 06/08/2023 11:22 AM EDT [facility] Radiology Study observation (narrative) [facility]m [facility] US AbdomenOrdered By: Noemí Medrano on 06-08-2023 [employer] Work Phone: [phone] 06-08-2023 ZINC, SERUM 89.0 ug/dL Normal 60.0-120.0 [facility] Comment on above: Result Comment: INTE RPRETIVE INFORMATION: Zinc, Serum or PlasmaElevated results may be due to skin or collection-relatedcontamination, including the use of a noncertified metal-freecollection/transport tube. If contamination concerns exist due toelevated levels of serum/plasma zinc, confirmation with a secondspecimen collected in a certified metal-free tube is recommended.Circulating zinc concentrations are dependent on albumin statusand are depressed with malnutrition. Zinc may also be loweredwith infection, inflammation, stress, oral contraceptives, andpregnancy. Zinc may be elevated with zinc supplementation orfasting. Elevated zinc concentrations may interfere with copperabsorption.This test was developed and its performance characteristicsdetermined by [employer]. It has not been cleared orapproved by the [place] Food and Drug Administration. This test wasperformed in a CLIA certified laboratory and is intended forclinical purposes.Performed By: [facility] [place], [place] [id number] Director: Liborio Martinez MD, PhDCLIA Number: [id number] Performed By: #### L [id number] ####[facility] ([facility])[address] [place] [address] [facility] BASIC METABOLIC PANELon 05-23 Anion gap [Moles/Vol] 9 mmol/L Normal 3-13 [facility] Comment on above: Performed By: #### L AB129, [id number], LAB15, PLX514 ####Senior Sustainability Advisor: HENNY WADE ([phone])[facility] ([facility])[address] [place] [address] Calcium [Mass/Vol] 7.9 mg/dL Low 8.4-10.4 [facility] Comment on above: Performed By: #### L AB129, XHB918, LAB15, LAO123 ####Senior Sustainability Advisor: HENNY WADE ([phone])[facility] ([facility])[address] [place] [address] Chloride [Moles/Vol] 105 mmol/L Normal 98-107 [facility] Comment on above: Performed By: #### L AB129, YNL961, LAB15, TYI366 ####Senior Sustainability Advisor: HENNY WADE ([phone])[facility] ([facility])[address] [place] [address] CO2 [Moles/Vol] 25 mmol/L Normal 22-30 [facility] Comment on above: Performed By: #### L AB129, EYP198, LAB15, AXZ338 ####Senior Sustainability Advisor: HENNY WADE ([phone])[facility])[address] [place] [address] Creatinine [Mass/Vol] 0.45 mg/dL Low 0.52-1.04 [facility] Comment on above: Performed By: #### L AB129, IMA016, LAB15, CMD962 ####Senior Sustainability Advisor: HENNY WADE ([phone])[facility])[address] [place] [address] GLOMERULAR FILTRATION RATE ML/MIN/1.73 SQ M.PREDICTED >90.0 Normal >60.0 [facility] Comment on above: Result Comment: Calc ulation based on the Chronic Kidney Disease Epidemiology Collaboration (CKD-EPI) equation refit without adjustment for race Performed By: #### L AB129, QAO380, LAB15, WJD472 ####Senior Sustainability Advisor: HENNY WADE ([phone])[facility] ([facility])[address] [place] [address] Glucose [Mass/Vol] 87 mg/dL Normal 70-100 [facility] Comment on above: Performed By: #### L AB129, ZYQ682, LAB15, ZMP911 ####Senior Sustainability Advisor: HENNY WADE ([phone])[facility])[address] [place] [address] Potassium [Moles/Vol] 3.5 mmol/L Normal 3.5-5.1 [facility] Comment on above: Performed By: #### L AB129, GNN951, LAB15, PFO941 ####Senior Sustainability Advisor: HENNY WADE ([phone])[facility])[address] [place] [address] [place] Sodium [Moles/Vol] 140 mmol/L Normal 135-145 [facility] Comment on above: Performed By: #### L AB129, ORH310, LAB15, ZNF677 ####Senior Sustainability Advisor: HENNY WADE ([phone])[facility] ([facility])[address] [place] [address] Urea nitrogen [Mass/Vol] 2 mg/dL Low 7-17 [facility] Comment on above: Performed By: #### L AB129, KNN936, LAB15, FQO086 ####Senior Sustainability Advisor: HENNY WADE ([phone])[facility] ([facility])[address] [place] [address] Basic metabolic 1998 panelon 06-07-2023 Anion gap [Moles/Vol] 9 mmol/L 3 - 13 mmol/L [facility] Calcium [Mass/Vol] 7.9 mg/dL Low 8.4 - 10. 4 mg/dL [facility] Chloride [Moles/Vol] 105 mmol/L 98 - 10 7 mmol/L [facility] CO2 [Moles/Vol] 25 mmol/L 22 - 30 mmol/L [facility] Creatinine [Mass/Vol] 0.45 mg/dL Low 0.52 - 1.04 mg/dL [facility] GFR/1.73 sq M.predicted MDRD (S/P/Bld) [Vol rate/Area] - PINF [facility] Comment on above: Calculation based on the Chronic Kidney Disease Epidemiology Collaboration (CKD-EPI) equation refit without adjustment for race Glucose [Mass/Vol] 87 mg/dL 70 - 100 mg/dL [facility] Interpretation and review of laboratory results Abnormal [facility] Potassium [Moles/Vol] 3.5 mmol/L 3.5 - 5.1 mmol/L [facility] Sodium [Moles/Vol] 140 mmol/L 135 - 145 mmol/L [facility] Urea nitrogen [Mass/Vol] 2 mg/dL Low 7 - 17 mg/dL [facility] CARECOORDon 06-07-2023 CARECOORD Normal [facility] CBC W Auto Differential pane l (Bld)Ordered By: Odette Ott on 06-07-2023 Basophils (Bld) [#/Vol] 0.0 10*3/uL 0.0 - 0.2 10*3/uL [facility] Basophils/100 WBC (Bld) 0.5 % 0.0 - 2.0 % [facility] Eosinophils (Bld) [#/Vol] 0.2 10*3/uL 0.0 - 0.5 10*3/uL [facility] Eosinophils/100 WBC (Bld) 3.4 % 0.0 - 6.0 % [facility] Erythrocyte distribution width (RBC) [Ratio] 19.4 % High 11.5 - 15.0 % [facility] Hematocrit (Bld) [Volume fraction] 35.8 % 35.0 - 47.0 % [facility] Hemoglobin (Bld) [Mass/Vol] 10.8 g/dL Low 11.7 - 16.0 g/dL [facility] Immature granulocytes (Bld) [#/Vol] 0.0 10*3/uL NINF - 0.1 10*3/uL [facility] Immature granulocytes/100 WBC (Bld) 0.5 % 0.0 - 2.0 % [facility] Interpretation and review of laboratory results Abnormal [facility] Lymphocytes (Bld) [#/Vol] 2.0 10*3/uL 1.0 - 4.3 10*3/uL [facility] Lymphocytes/100 WBC (Bld) 30.3 % 15.0 - 45.0 % [facility] MCH (RBC) [Entitic mass] 22.1 pg Low 26.0 - 34.0 pg [facility] MCHC (RBC) [Mass/Vol] 30.2 % Low 30.5 - 36.0 % [facility] MCV (RBC) [Entitic vol] 73.4 fL Low 77.0 - 99.0 fL [facility] Monocytes (Bld) [#/Vol] 0.6 10*3/uL 0.0 - 0.9 10*3/uL [facility] Monocytes/100 WBC (Bld) 8.5 % 5.0 - 13.0 % [facility] Neutrophils (Bld) [#/Vol] 3.7 10*3/uL 1.8 - 7.5 10*3/uL [facility] Neutrophils/100 WBC (Bld) 56.8 % 38.0 - 82.0 % [facility] Nucleated RBC/100 WBC (Bld) [Ratio] 0.0 % [facility] Platelet mean volume (Bld) [Entitic vol] 11.6 fL 9.0 - 12.7 fL [facility] Platelets (Bld) [#/Vol] 398 10*3/uL 140 - 440 10*3/uL [facility] RBC (Bld) [#/Vol] 4.88 10*6/uL 3.80 - 5.2 0 10*6/uL [facility] WBC (Bld) [#/Vol] 6.6 10*3/uL 3.6 - 10.7 10*3/uL [facility] CBC WITH AUTO DIFFERENTIALon 06-07-2023 Basophils (Bld) [#/Vol] 0.0 10*3/uL Normal 0.0-0.2 [facility] Comment on above: Performed By: #### L [id number] ####Senior Sustainability Advisor: HENNY WADE ([phone])[facility])[address] [place] [address] Basophils/100 WBC (Bld) 0.5 % Normal 0.0-2.0 [facility] Comment on above: Performed By: #### L [id number] ####Senior Sustainability Advisor: HENNY WADE ([phone])[facility])[address] [place] [address] Eosinophils (Bld) [#/Vol] 0.2 10*3/uL Normal 0.0-0.5 [facility] Comment on above: Performed By: #### L [id number] ####Senior Sustainability Advisor: HENNY WADE ([phone])[facility])[address] [place] [address] Eosinophils/100 WBC (Bld) 3.4 % Normal 0.0-6.0 [facility] Comment on above: Performed By: #### L [id number] ####Senior Sustainability Advisor: HENNY WADE ([phone])[facility])[address] [place] [address] Erythrocyte distribution width (RBC) [Ratio] 19.4 % High 11.5-15.0 [facility] Comment on above: Performed By: #### L [id number] ####Senior Sustainability Advisor: HENNY WADE ([phone])[facility])[address] [place] [address] Hematocrit (Bld) [Volume fraction] 35.8 % Normal 35.0-47.0 [facility] Comment on above: Performed By: #### L [id number] ####Senior Sustainability Advisor: HENNY WADE ([phone])[facility])[address] [place] [address] Hemoglobin (Bld) [Mass/Vol] 10.8 g/dL Low 11.7-16.0 [facility] Comment on above: Performed By: #### L [id number] ####Senior Sustainability Advisor: HENNY WADE ([phone])[facility])[address] [place] [address] IMMATURE GRANS % 0.5 % Normal 0.0-2.0 [facility] Comment on above: Performed By: #### L [id number] ####Senior Sustainability Advisor: HENNY WADE ([phone])[facility])[address] [place] [address] IMMATURE GRANS ABSOLUTE 0.0 10*3/uL Normal <0.1 [facility] Comment on above: Performed By: #### L [id number] ####Senior Sustainability Advisor: HENNY WADE ([phone])[facility])[address] [place] [address] Lymphocytes (Bld) [#/Vol] 2.0 10*3/uL Normal 1.0-4.3 [facility] Comment on above: Performed By: #### L [id number] ####Senior Sustainability Advisor: HENNY WADE ([phone])[facility])[address] [place] [address] Lymphocytes/100 WBC (Bld) 30.3 % Normal 15.0-45.0 [facility] Comment on above: Performed By: #### L [id number] ####Senior Sustainability Advisor: HENNY WADE ([phone])[facility] [address] MCH (RBC) [Entitic mass] 22.1 pg Low 26.0-34.0 [facility] Comment on above: Performed By: #### L [id number] ####Senior Sustainability Advisor: HENNY WADE ([phone])[facility])[address] [place] [address] MCHC 30.2 % Low 30.5-36.0 [facility] Comment on above: Performed By: #### L [id number] ####Senior Sustainability Advisor: HENNY WADE ([phone])[facility])[address] [place] [address] MCV (RBC) [Entitic vol] 73.4 fL Low 77.0-99.0 [facility] Comment on above: Performed By: #### L [id number] ####Senior Sustainability Advisor: HENNY WADE ([phone])[facility] [facility] [place] [address] Monocytes (Bld) [#/Vol] 0.6 10*3/uL Normal 0.0-0.9 [facility] Comment on above: Performed By: #### L [id number] ####Senior Sustainability Advisor: HENNY WADE ([phone])[facility])[address] [place] [address] Monocytes/100 WBC (Bld) 8.5 % Normal 5.0-13.0 S [facility] Comment on above: Performed By: #### L [id number] ####Senior Sustainability Advisor: HENNY WADE ([phone])[facility])[address] [place] [address] NEUTROPHILS ABSOLUTE 3.7 10*3/uL Normal 1.8-7.5 [facility] Comment on above: Performed By: #### L [id number] ####Senior Sustainability Advisor: HENNY WADE ([phone])[facility])[address] [place] [address] Neutrophils/100 WBC (Bld) 56.8 % Normal 38.0-82.0 [facility] Comment on above: Performed By: #### L [id number] ####Senior Sustainability Advisor: HENNY WADE ([phone])[facility])[address] [place] [address] NRBC 0.0 /100 WBCs Normal 0.0-2.0 [facility] Comment on above: Performed By: #### L [id number] ####Senior Sustainability Advisor: HENYN WADE ([phone])[facility] ([facility])[address] [place] [address] Platelet mean volume (Bld) [Entitic vol] 11.6 fL Normal 9.0-12.7 [facility] Comment on above: Performed By: #### L [id number] ####Senior Sustainability Advisor: HENNY WADE ([phone])[facility] ([facility])[address] [place] [address] Platelets (Bld) [#/Vol] 398 10*3/uL Normal 140-440 [facility] Comment on above: Performed By: #### L [id number] ####Senior Sustainability Advisor: HENNY WADE ([phone])[facility] ([facility])[address] [place] [address] RBC (Bld) [#/Vol] 4.88 10*6/uL Normal 3.80-5.20 [facility] Comment on above: Performed By: #### L [id number] ####Senior Sustainability Advisor: HENNY WADE ([phone])[facility] ([facility])[address] [place] [address] WBC (Bld) [#/Vol] 6.6 10*3/uL Normal 3.6-10.7 [facility] Comment on above: Performed By: #### L [id number] ####Senior Sustainability Advisor: HENNY WADE ([phone])[facility])[address] [place] [address] COMPREHENSIVE METABOLIC PANE Chavez 06-07-2023 Albumin [Mass/Vol] 3.5 g/dL Normal 3.5-5.0 [facility] Comment on above: Performed By: #### L AB113, LAB99, [id number], LAB17 ####Senior Sustainability Advisor: HENNY WADE ([phone])[facility])[address] [place] [address] ALP [Catalytic activity/Vol] 63 U/L Normal 38-126 [facility] Comment on above: Performed By: #### L AB113, LAB99, [id number], LAB17 ####Senior Sustainability Advisor: HENNY WADE ([phone])[facility] ([facility])[address] [place] [address] ALT [Catalytic activity/Vol] 237 U/L High 0-34 [facility] Comment on above: Performed By: #### L AB113, LAB99, [id number], LAB17 ####Senior Sustainability Advisor: HENNY WADE ([phone])[facility] ([facility])[address] [place] [address] Anion gap [Moles/Vol] 11 mmol/L Normal 3-13 [facility] Comment on above: Performed By: #### L AB113, LAB99, LXY069, LAB17 ####Senior Sustainability Advisor: HENNY WADE ([phone])[facility] ([facility])[address] [place] [address] AST [Catalytic activity/Vol] 157 U/L High 15-46 [facility] Comment on above: Performed By: #### L AB113, LAB99, [id number], LAB17 ####Senior Sustainability Advisor: HENNY WADE ([phone])[facility])[address] [place] [address] Bilirubin [Mass/Vol] 1.7 mg/dL High 0.2-1.3 [facility] Comment on above: Performed By: #### L AB113, LAB99, [id number], LAB17 ####Senior Sustainability Advisor: HENNY WADE ([phone])[facility])[address] [place] [address] Calcium [Mass/Vol] 8.4 mg/dL Normal 8.4-10.4 [facility] Comment on above: Performed By: #### L AB113, LAB99, MIH035, LAB17 ####Senior Sustainability Advisor: HENNY WADE ([phone])[facility])[address] [place] [address] Chloride [Moles/Vol] 107 mmol/L Normal 98-107 [facility] Comment on above: Performed By: #### L AB113, LAB99, EAQ520, LAB17 ####Senior Sustainability Advisor: HENNY WADE ([phone])[facility])[address] [place] [address] CO2 [Moles/Vol] 23 mmol/L Normal 22-30 [facility] Comment on above: Performed By: #### L AB113, LAB99, CYC220, LAB17 ####Senior Sustainability Advisor: HENNY WADE ([phone])[facility])[address] [place] [address] Creatinine [Mass/Vol] 0.53 mg/dL Normal 0.52-1.04 [facility] Comment on above: Performed By: #### L AB113, LAB99, MKI315, LAB17 ####Senior Sustainability Advisor: HENNY WADE ([phone])[facility])[address] [place] [address] GLOMERULAR FILTRATION RATE ML/MIN/1.73 SQ M.PREDICTED >90.0 Normal >60.0 [facility] Comment on above: Result Comment: Calc ulation based on the Chronic Kidney Disease Epidemiology Collaboration (CKD-EPI) equation refit without adjustment for race Performed By: #### L AB113, LAB99, DJL331, LAB17 ####Senior Sustainability Advisor: HENNY WADE ([phone])[facility])[address] [place] [address] Glucose [Mass/Vol] 86 mg/dL Normal 70-100 [facility] Comment on above: Performed By: #### L AB113, LAB99, POG498, LAB17 ####Senior Sustainability Advisor: HENNY WADE ([phone])[facility])[address] [place] [address] Potassium [Moles/Vol] 3.3 mmol/L Low 3.5-5.1 [facility] Comment on above: Performed By: #### L AB113, LAB99, LMS427, LAB17 ####Senior Sustainability Advisor: HENNY WADE ([phone])[facility] ([facility])[address] [place] [address] Protein [Mass/Vol] 7.0 g/dL Normal 6.3-8.2 [facility] Comment on above: Performed By: #### L AB113, LAB99, VZE082, LAB17 ####Senior Sustainability Advisor: HENNY WDAE ([phone])[facility])[address] [place] [address] Sodium [Moles/Vol] 141 mmol/L Normal 135-145 [facility] Comment on above: Performed By: #### L AB113, LAB99, VKB456, LAB17 ####Senior Sustainability Advisor: HENNY WADE ([phone])[facility] ([facility])[address] [place] [address] Urea nitrogen [Mass/Vol] 3 mg/dL Low 7-17 [facility] Comment on above: Performed By: #### L AB113, LAB99, DVR073, LAB17 ####Senior Sustainability Advisor: HENNY WADE ([phone])[facility])[address] [place] [address] Comprehensive metabolic 1998 panelon 06-07-2023 Albumin [Mass/Vol] 3.5 g/dL 3.5 - 5.0 g/dL [facility] ALP [Catalytic activity/Vol] 63 U/L 38 - 126 U/L [facility] ALT [Catalytic activity/Vol] 237 U/L High 0 - 34 U/L [facility] Anion gap [Moles/Vol] 11 mmol/L 3 - 13 mmol/L [facility] AST [Catalytic activity/Vol] 157 U/L High 15 - 46 U/L [facility] Bilirubin [Mass/Vol] 1.7 mg/dL High 0.2 - 1 .3 mg/dL [facility] Calcium [Mass/Vol] 8.4 mg/dL 8.4 - 10. 4 mg/dL [facility] Chloride [Moles/Vol] 107 mmol/L 98 - 10 7 mmol/L [facility] CO2 [Moles/Vol] 23 mmol/L 22 - 30 mmol/L [facility] Creatinine [Mass/Vol] 0.53 mg/dL 0.52 - 1.04 mg/dL [facility] GFR/1.73 sq M.predicted MDRD (S/P/Bld) [Vol rate/Area] - PINF [facility] Comment on above: Calculation based on the Chronic Kidney Disease Epidemiology Collaboration (CKD-EPI) equation refit without adjustment for race Glucose [Mass/Vol] 86 mg/dL 70 - 100 mg/dL [facility] Interpretation and review of laboratory results Abnormal [facility] Potassium [Moles/Vol] 3.3 mmol/L Low 3.5 - 5.1 mmol/L [facility] Protein [Mass/Vol] 7.0 g/dL 6.3 - 8.2 g/dL [facility] Sodium [Moles/Vol] 141 mmol/L 135 - 145 mmol/L [facility] Urea nitrogen [Mass/Vol] 3 mg/dL Low 7 - 17 mg/dL [facility] Health Consulton 06-07-2023 Consult Normal [facility] Consult Normal [facility] LIPASEon 06-07-2023 Lipase [Catalytic activity/Vol] 2085 U/L High 23-300 [facility] Comment on above: Performed By: #### L AB113, LAB99, [id number], LAB17 ####Senior Sustainability Advisor: HENNY WADE ([phone])[facility] ([address] Laboratory - Chemistry and C hemistry - challengeon 06-07-2023 Glucose [Mass/Vol] 94 mg/dL 70 - 100 mg/dL [facility] Glucose [Mass/Vol] 72 mg/dL 70 - 100 mg/dL [facility] Glucose [Mass/Vol] 81 mg/dL 70 - 100 mg/dL [facility] Lipase [Catalytic activity/Vol] 2085 U/L High 23 - 300 U/L [facility] Magnesium [Mass/Vol] 1.5 mg/dL Low 1.6 - 2 .3 mg/dL [facility] Laboratory - Chemistry and C hemistry - challengeOrdered By: Shirley Cartagena on 06-07-2023 Triglyceride [Mass/Vol] 103 mg/dL NINF - 150 mg/dL [facility] Lipase [Catalytic activity/V ol]on 06-07-2023 Interpretation and review of laboratory results Abnormal [facility] MAGNESIUMon 06-07-2023 Magnesium [Mass/Vol] 1.5 mg/dL Low 1.6-2.3 [facility] Comment on above: Performed By: #### L AB113, LAB99, PRW850, LAB17 ####Senior Sustainability Advisor: HENNY WADE ([phone])[facility] ([facility])[address] [place] [address] Magnesium [Mass/Vol]on 06-06 Interpretation and review of laboratory results Abnormal [facility] No Panel Informationon 06-06 Interpretation and review of laboratory results Normal [facility] Performed by: [facility], [address] [place] [id number] CLIA ID: [id number] [facility] Interpretation and review of laboratory results Normal [facility] Performed by: [facility], [address] [place] [id number] CLIA ID: [id number] [facility] Suze Cuba MD 06/07/2023 7:12 PM PICC Insertion/Replacement Date/Time: 06/07/2023 2:54 PM Performed by: Suze Cuba MD Authorized by: Suze Cuba MD Consent: The indications, risks, benefits, alternatives to the procedure were explained to the patient/surrogate decision maker and their questions answered. Consent was obtained to proceed with the procedure. Timeout: Completed immediately prior to the start of the procedure which included verification of the correct patient, correct site and agreement on the procedure to be done. Indications: Indications: Total Parenteral Nutrition (TPN) Anesthetic: Local anesthetic used: lidocaine without epinephrine Procedure details: Preparation: Skin prepped with chlorhexidine Skin prep agent dried: Skin prep agent completely dried prior to procedure Sterile barriers: All five maximal sterile barriers used - gloves, gown, cap, mask and large sterile sheet Hand hygiene: Hand hygiene performed prior to central venous catheter insertion Sterile technique: Sterile technique maintained throughout procedure. Site prior to insertion: Ecchymosis Procedure type: Insertion Orientation: left Location: Basilic Catheter type: Double lumen Catheter size: 5 Fr Lot #: [id number] Trimmed at (cm): 53 Inserted at (cm): 53 Ultrasound guidance: Yes Post-procedure: Post-procedure: Antimicrobial dressing applied and securement device Description/Findings: Flushes easily and blood returned Estimated blood loss: < 5 mL Specify complication(s): No apparent complications Follow-up chest x-ray: Ordered General Comments: PICC tip deep in RA on CXR, pulled back 4 cm. [facility] Interpretation and review of laboratory results Normal [facility] Performed by: [facility], [address] [place] [address] CLIA ID: [id number] [facility] Radiology Study observation (narrative) [facility] Radiology Study observation (narrative) [facility] PHOSPHORUSon 06-07-2023 Phosphate [Mass/Vol] 2.6 mg/dL Normal 2.5-4.5 [facility] Comment on above: Performed By: #### L AB129, SBG552, LAB15, [id number] ####Senior Sustainability Advisor: HENNY WADE ([phone])[facility] ([facility])[address] [place] [address] Phosphate [Mass/Vol] 3.5 mg/dL Normal 2.5-4.5 [facility] Comment on above: Order Comment: Rosmery guaman for TPN today, thank you Performed By: #### L AB113, LAB99, HMG336, LAB17 ####Senior Sustainability Advisor: HENNY WADE ([phone])[facility] ([facility])[address] [place] [address] [place] Phosphate [Moles/Vol]on 05-23 Interpretation and review of laboratory results Normal [facility] Phosphate [Mass/Vol] 2.6 mg/dL 2.5 - 4 .5 mg/dL [facility] Interpretation and review of laboratory results Normal [facility] Phosphate [Mass/Vol] 3.5 mg/dL 2.5 - 4 .5 mg/dL [facility] Progress Noteon 06-07-2023 Progress Note Normal [facility] Progress Note Normal [facility] THYROID STIMULATING HORMONEo n 06-07-2023 THYROID STIMULATING HORMONE 4.370 uIU/mL Normal 0.465-4.680 [facility] Comment on above: Performed By: #### L AB129, EHB773, LAB15, [id number] ####Senior Sustainability Advisor: HENNY WADE ([phone])[facility] ([facility])[address] [place] [address] TRIGLYCERIDESon 06-07-2023 Triglyceride [Mass/Vol] 103 mg/dL Normal <150 [facility] Comment on above: Performed By: #### L AB129, ZFP115, LAB15, [id number] ####Senior Sustainability Advisor: HENNY WADE ([phone])[facility] ([facility])[address] [place] [address] Triglyceride [Mass/Vol]Order ed By: Shirley Cartagena on 06-07-2023 Interpretation and review of laboratory results Normal [facility] XR CHEST 1 VIEWon 06-07-2023 XR CHEST 1 VIEW Normal [facility] XR Chest Single viewon 06-06 FINDINGS/IMPRESSION: Limitations: Somewhat limited by patient positioning and underpenetration Lines, tubes, and devices: Left-sided PICC line has its tip along the inferior margin of the right atrium. Consider slight retraction. Cardiomediastinal silhouette: Heart size is within normal limits. Lungs/Pleura: Low lung volumes with slight elevation of the right hemidiaphragm. Pulmonary vascular congestion versus vascular crowding from low lung volumes. Mild bibasilar atelectasis. No sizable pleural effusions. No pneumothorax. Osseous structures: Mild degenerative spondylosis in the visualized spine. Soft tissues: No soft tissue abnormality is detected. Report Dictated on Electronically Signed By: Forrest Kennedy MD Electronically Signed Date/Time: 06/07/2023 3:41 PM EDT [facility] [employer] Patient Name: ANNE MARIE BATES : 1995 Exam Date/Time: 06/07/2023 15:09 Procedure: XR CHEST 1 VIEW Ordering Provider: LEAL LOGAN Reason For Exam: line placement CHEST - PORTABLE: CLINICAL INDICATION: PICC line placement. TECHNIQUE: Portable AP COMPARISON: Correlations made to CT abdomen pelvis 06/03/2023. [facility] Larisa Kenendy MD - 06/07/2023 [facility] 1995 [id number] Exam Date/Time: 06/07/2023 15:09 Procedure: XR CHEST 1 VIEW Ordering Provider: LEAL LOGAN Reason For Exam: line placement CHEST - PORTABLE: CLINICAL INDICATION: PICC line placement. TECHNIQUE: Portable AP COMPARISON: Correlations made to CT abdomen pelvis 06/03/2023. IMPRESSION: FINDINGS/IMPRESSION: Limitations: Somewhat limited by patient positioning and underpenetration Lines, tubes, and devices: Left-sided PICC line has its tip along the inferior margin of the right atrium. Consider slight retraction. Cardiomediastinal silhouette: Heart size is within normal limits. Lungs/Pleura: Low lung volumes with slight elevation of the right hemidiaphragm. Pulmonary vascular congestion versus vascular crowding from low lung volumes. Mild bibasilar atelectasis. No sizable pleural effusions. No pneumothorax. Osseous structures: Mild degenerative spondylosis in the visualized spine. Soft tissues: No soft tissue abnormality is detected. Report Dictated on Electronically Signed By: Forrest Kennedy MD Electronically Signed Date/Time: 06/07/2023 3:41 PM EDT [facility] Radiology Study observation (narrative) [facility] XR Chest Single viewOrdered By: Larisa Kennedy on 06-07-2023 [facility] Work Phone: Bacteria identified Cx Nom ( U)Ordered By: Zeke Arcos on 06-06-2023 Interpretation and review of laboratory results Abnormal [facility] CBC W Auto Differential pane l (Bld)Ordered By: Johana Serrato on 06-06-2023 Basophils (Bld) [#/Vol] 0.0 10*3/uL 0.0 - 0.2 10*3/uL [facility] Basophils/100 WBC (Bld) 0.3 % 0.0 - 2.0 % [facility] Eosinophils (Bld) [#/Vol] 0.2 10*3/uL 0.0 - 0.5 10*3/uL [facility] Eosinophils/100 WBC (Bld) 2.5 % 0.0 - 6.0 % [facility] Erythrocyte distribution width (RBC) [Ratio] 19.6 % High 11.5 - 15.0 % [facility] Hematocrit (Bld) [Volume fraction] 36.7 % 35.0 - 47.0 % [facility] Hemoglobin (Bld) [Mass/Vol] 11.2 g/dL Low 11.7 - 16.0 g/dL [facility] Immature granulocytes (Bld) [#/Vol] 0.0 10*3/uL NINF - 0.1 10*3/uL [facility] Immature granulocytes/100 WBC (Bld) 0.5 % 0.0 - 2.0 % [facility] Interpretation and review of laboratory results Abnormal [facility] Lymphocytes (Bld) [#/Vol] 1.6 10*3/uL 1.0 - 4.3 10*3/uL [facility] Lymphocytes/100 WBC (Bld) 23.8 % 15.0 - 45.0 % [facility] MCH (RBC) [Entitic mass] 22.1 pg Low 26.0 - 34.0 pg [facility] MCHC (RBC) [Mass/Vol] 30.5 % 30.5 - 36.0 % [facility] MCV (RBC) [Entitic vol] 72.4 fL Low 77.0 - 99.0 fL [facility] Monocytes (Bld) [#/Vol] 0.6 10*3/uL 0.0 - 0.9 10*3/uL [facility] Monocytes/100 WBC (Bld) 8.5 % 5.0 - 13.0 % [facility] Neutrophils (Bld) [#/Vol] 4.2 10*3/uL 1.8 - 7.5 10*3/uL [facility] Neutrophils/100 WBC (Bld) 64.4 % 38.0 - 82.0 % [facility] Nucleated RBC/100 WBC (Bld) [Ratio] 0.0 % [facility] Platelet mean volume (Bld) [Entitic vol] 11.2 fL 9.0 - 12.7 fL [facility] Platelets (Bld) [#/Vol] 430 10*3/uL 140 - 440 10*3/uL [facility] RBC (Bld) [#/Vol] 5.07 10*6/uL 3.80 - 5.2 0 10*6/uL [facility] WBC (Bld) [#/Vol] 6.5 10*3/uL 3.6 - 10.7 10*3/uL [facility] CBC WITH AUTO DIFFERENTIALon 06-06-2023 Basophils (Bld) [#/Vol] 0.0 10*3/uL Normal 0.0-0.2 [facility] Comment on above: Performed By: #### L [id number] ####Senior Sustainability Advisor: HENNY WADE ([phone])[facility])[address] [place] [address] Basophils/100 WBC (Bld) 0.3 % Normal 0.0-2.0 [facility] Comment on above: Performed By: #### L [id number] ####Senior Sustainability Advisor: HENNY WADE ([phone])[facility])[address] [place] [address] Eosinophils (Bld) [#/Vol] 0.2 10*3/uL Normal 0.0-0.5 [facility] Comment on above: Performed By: #### L [id number] ####Senior Sustainability Advisor: HENNY WADE ([phone])[facility])[address] [place] [address] Eosinophils/100 WBC (Bld) 2.5 % Normal 0.0-6.0 [facility] Comment on above: Performed By: #### L [id number] ####Senior Sustainability Advisor: HENNY WADE ([phone])[facility])[address] [place] [address] Erythrocyte distribution width (RBC) [Ratio] 19.6 % High 11.5-15.0 [facility] Comment on above: Performed By: #### L [id number] ####Senior Sustainability Advisor: HENNY WADE ([phone])[facility])[address] [place] [address] Hematocrit (Bld) [Volume fraction] 36.7 % Normal 35.0-47.0 [facility] Comment on above: Performed By: #### L [id number] ####Senior Sustainability Advisor: HENNY WADE ([phone])[facility])[address] [place] [address] Hemoglobin (Bld) [Mass/Vol] 11.2 g/dL Low 11.7-16.0 [facility] Comment on above: Performed By: #### L [id number] ####Senior Sustainability Advisor: HENNY WADE ([phone])[facility])[address] [place] [address] IMMATURE GRANS % 0.5 % Normal 0.0-2.0 [facility] Comment on above: Performed By: #### L [id number] ####Senior Sustainability Advisor: HENNY WADE ([phone])[facility])[address] [place] [address] IMMATURE GRANS ABSOLUTE 0.0 10*3/uL Normal <0.1 [facility] Comment on above: Performed By: #### L [id number] ####Senior Sustainability Advisor: HENNY WADE ([phone])[facility])[address] [place] [address] Lymphocytes (Bld) [#/Vol] 1.6 10*3/uL Normal 1.0-4.3 [facility] Comment on above: Performed By: #### L [id number] ####Senior Sustainability Advisor: HENNY WADE ([phone])[facility])[address] [place] [address] Lymphocytes/100 WBC (Bld) 23.8 % Normal 15.0-45.0 [facility] Comment on above: Performed By: #### L [id number] ####Senior Sustainability Advisor: HENNY WADE ([phone])[facility] ([facility])[address] [place] [address] MCH (RBC) [Entitic mass] 22.1 pg Low 26.0-34.0 [facility] Comment on above: Performed By: #### L [id number] ####Senior Sustainability Advisor: HENNY WADE ([phone])[facility])[address] [place] [address] MCHC 30.5 % Normal 30.5-36.0 [facility] Comment on above: Performed By: #### L [id number] ####Senior Sustainability Advisor: HENNY WADE ([phone])[facility] ([facility])[address] [place] [address] MCV (RBC) [Entitic vol] 72.4 fL Low 77.0-99.0 [facility] Comment on above: Performed By: #### L [id number] ####Senior Sustainability Advisor: HENNY WADE ([phone])[facility] ([facility])[address] [place] [address] Monocytes (Bld) [#/Vol] 0.6 10*3/uL Normal 0.0-0.9 [facility] Comment on above: Performed By: #### L [id number] ####Senior Sustainability Advisor: HENNY WADE ([phone])[facility])[address] [place] [address] Monocytes/100 WBC (Bld) 8.5 % Normal 5.0-13.0 [facility] Comment on above: Performed By: #### L [id number] ####Senior Sustainability Advisor: HENNY WADE ([phone])[facility])[address] [place] [address] NEUTROPHILS ABSOLUTE 4.2 10*3/uL Normal 1.8-7.5 [facility] Comment on above: Performed By: #### L [id number] ####Senior Sustainability Advisor: HENNY WADE ([phone])[facility])[address] [place] [address] Neutrophils/100 WBC (Bld) 64.4 % Normal 38.0-82.0 [facility] Comment on above: Performed By: #### L [id number] ####Senior Sustainability Advisor: HENNY WADE ([phone])[facility])[address] [place] [address] NRBC 0.0 /100 WBCs Normal 0.0-2.0 [facility] Comment on above: Performed By: #### L [id number] ####Senior Sustainability Advisor: HENNY WADE ([phone])[facility] ([facility])[address] [place] [address] Platelet mean volume (Bld) [Entitic vol] 11.2 fL Normal 9.0-12.7 [facility] Comment on above: Performed By: #### L [id number] ####Senior Sustainability Advisor: HENNY WADE ([phone])[facility])[address] [place] [address] Platelets (Bld) [#/Vol] 430 10*3/uL Normal 140-440 [facility] Comment on above: Performed By: #### L [id number] ####Senior Sustainability Advisor: HENNY WADE ([phone])[facility])[address] [place] [address] RBC (Bld) [#/Vol] 5.07 10*6/uL Normal 3.80-5.20 [facility] Comment on above: Performed By: #### L [id number] ####Senior Sustainability Advisor: HENNY WADE ([phone])[facility] ([facility])[address] [place] [address] WBC (Bld) [#/Vol] 6.5 10*3/uL Normal 3.6-10.7 [facility] Comment on above: Performed By: #### L [id number] ####Senior Sustainability Advisor: HENNY WADE ([phone])[facility])[address] [place] [address] COMPREHENSIVE METABOLIC PANE Chavez 06-06-2023 Albumin [Mass/Vol] 3.2 g/dL Low 3.5-5.0 [facility] Comment on above: Performed By: #### Barrett MORGAN, LAB99, LAB17 ####Senior Sustainability Advisor: HENNY WADE ([phone])[facility] ([facility])[address] [place] [address] ALP [Catalytic activity/Vol] 53 U/L Normal 38-126 [facility] Comment on above: Performed By: #### Barrett MORGAN, LAB99, LAB17 ####Senior Sustainability Advisor: HENNY WADE ([phone])[facility] ([facility])[address] [place] [address] ALT [Catalytic activity/Vol] 187 U/L High 0-34 [facility] Comment on above: Performed By: #### Barrett MORGAN, LAB99, LAB17 ####Senior Sustainability Advisor: HENNY WADE ([phone])[facility] ([facility])[address] [place] [address] Anion gap [Moles/Vol] 11 mmol/L Normal 3-13 [facility] Comment on above: Performed By: #### Barrett MORGAN, LAB99, LAB17 ####Senior Sustainability Advisor: HENNY WADE ([phone])[facility] ([facility])[address] [place] [address] AST [Catalytic activity/Vol] 134 U/L High 15-46 [facility] Comment on above: Performed By: #### Barrett MORGAN, LAB99, LAB17 ####Senior Sustainability Advisor: HENNY WADE ([phone])[facility] ([facility])[address] [place] [address] Bilirubin [Mass/Vol] 1.7 mg/dL High 0.2-1.3 [facility] Comment on above: Performed By: #### Barrett MORGAN, LAB99, LAB17 ####Senior Sustainability Advisor: HENNY WADE ([phone])[facility] ([facility])[address] [place] [address] Calcium [Mass/Vol] 8.3 mg/dL Low 8.4-10.4 [facility] Comment on above: Performed By: #### L AB103, LAB99, LAB17 ####Senior Sustainability Advisor: HENNY WADE ([phone])[facility] ([facility])[address] [place] [address] Chloride [Moles/Vol] 107 mmol/L Normal 98-107 [facility] Comment on above: Performed By: #### Barrett AB103, LAB99, LAB17 ####Senior Sustainability Advisor: HENNY WADE ([phone])[facility] ([facility])[address] [place] [address] CO2 [Moles/Vol] 21 mmol/L Low 22-30 [facility] Comment on above: Performed By: #### Barrett MORGAN, LAB99, LAB17 ####Senior Sustainability Advisor: HENNY WADE ([phone])[facility])[address] [place] [address] Creatinine [Mass/Vol] 0.52 mg/dL Normal 0.52-1.04 [facility] Comment on above: Performed By: #### Barrett MORGAN, LAB99, LAB17 ####Senior Sustainability Advisor: HENNY WADE ([phone])[facility] ([facility])[address] [place] [address] GLOMERULAR FILTRATION RATE ML/MIN/1.73 SQ M.PREDICTED >90.0 Normal >60.0 [facility] Comment on above: Result Comment: Calc ulation based on the Chronic Kidney Disease Epidemiology Collaboration (CKD-EPI) equation refit without adjustment for race Performed By: #### Barrett MORGAN, LAB99, LAB17 ####Senior Sustainability Advisor: HENNY WADE ([phone])[facility] ([facility])[address] [place] [address] [place] Glucose [Mass/Vol] 83 mg/dL Normal 70-100 [facility] Comment on above: Performed By: #### Barrett AB103, LAB99, LAB17 ####Senior Sustainability Advisor: HENNY WADE ([phone])[facility] ([facility])[address] [place] [address] [place] Potassium [Moles/Vol] 3.2 mmol/L Low 3.5-5.1 [facility] Comment on above: Performed By: #### Barrett AB103, LAB99, LAB17 ####Senior Sustainability Advisor: HENNY WADE ([phone])[facility])[address] [place] [address] Protein [Mass/Vol] 6.2 g/dL Low 6.3-8.2 [facility] Comment on above: Performed By: #### Barrett AB103, LAB99, LAB17 ####Senior Sustainability Advisor: HENNY WADE ([phone])[facility] ([facility])[address] [place] [address] Sodium [Moles/Vol] 139 mmol/L Normal 135-145 [facility] Comment on above: Performed By: #### Barrett AB103, LAB99, LAB17 ####Senior Sustainability Advisor: HENNY WADE ([phone])[facility] ([facility])[address] [place] [address] Urea nitrogen [Mass/Vol] 2 mg/dL Low 7-17 [facility] Comment on above: Performed By: #### Barrett AB103, LAB99, LAB17 ####Senior Sustainability Advisor: HENNY WADE ([phone])[facility] ([facility])[address] [place] [address] Comprehensive metabolic 1998 panelon 06-06-2023 Albumin [Mass/Vol] 3.2 g/dL Low 3.5 - 5.0 g/dL [facility] ALP [Catalytic activity/Vol] 53 U/L 38 - 126 U/L [facility] ALT [Catalytic activity/Vol] 187 U/L High 0 - 34 U/L [facility] Anion gap [Moles/Vol] 11 mmol/L 3 - 13 mmol/L [facility] AST [Catalytic activity/Vol] 134 U/L High 15 - 46 U/L [facility] Bilirubin [Mass/Vol] 1.7 mg/dL High 0.2 - 1 .3 mg/dL [facility] Calcium [Mass/Vol] 8.3 mg/dL Low 8.4 - 10. 4 mg/dL [facility] Chloride [Moles/Vol] 107 mmol/L 98 - 10 7 mmol/L [facility] CO2 [Moles/Vol] 21 mmol/L Low 22 - 30 mmol/L [facility] Creatinine [Mass/Vol] 0.52 mg/dL 0.52 - 1.04 mg/dL [facility] GFR/1.73 sq M.predicted MDRD (S/P/Bld) [Vol rate/Area] - PINF [facility] Comment on above: Calculation based on the Chronic Kidney Disease Epidemiology Collaboration (CKD-EPI) equation refit without adjustment for race Glucose [Mass/Vol] 83 mg/dL 70 - 100 mg/dL [facility] Potassium [Moles/Vol] 3.2 mmol/L Low 3.5 - 5.1 mmol/L [facility] Protein [Mass/Vol] 6.2 g/dL Low 6.3 - 8.2 g/dL [facility] Sodium [Moles/Vol] 139 mmol/L 135 - 145 mmol/L [facility] Urea nitrogen [Mass/Vol] 2 mg/dL Low 7 - 17 mg/dL [facility] LIPASEon 06-06-2023 Lipase [Catalytic activity/Vol] 1936 U/L High 23-300 [facility] Comment on above: Performed By: #### L AB103, LAB99, LAB17 ####Senior Sustainability Advisor: HENNY WADE ([phone])[address] Laboratory - Chemistry and C hemistry - challengeon 06-06-2023 Magnesium [Mass/Vol] 1.6 mg/dL 1.6 - 2 .3 mg/dL [facility] Lipase [Catalytic activity/Vol] 1936 U/L High 23 - 300 U/L [facility] Laboratory - Microbiology an d Antimicrobial susceptibilityOrdered By: Zeke Arcos on 06-06-2023 Bacteria identified Cx Nom (U) 10,000-50,000 CFU/mL Streptococcus agalactiae (Group B) Abnormal [facility] Comment on above: Susceptibility testi ng not performed. Beta-hemolytic streptococci are universally susceptible to beta-lactam antibiotics. If patient is beta-lactam allergic, providers should call the [facility] Microbiology Laboratory ([phone]) within 3 days to request susceptibility testing. Bacteria identified Cx Nom (U) >100,000 CFU/mL Aerococcus urinae Abnormal [facility] Comment on above: Susceptibility testi ng not routinely performed except on isolates from blood culture. Aerococcus species are generally susceptible to beta-lactams. Resistance to sulfonamides is common in Aerococcus urinae. Providers should call the [facility] obiology Laboratory ([phone]) within 3 days if susceptibility testing is required. MAGNESIUMon 06-06-2023 Magnesium [Mass/Vol] 1.6 mg/dL Normal 1.6-2.3 [facility] Comment on above: Performed By: #### L AB103, LAB99, LAB17 ####Senior Sustainability Advisor: HENNY WADE ([phone])[facility] ([facility])[address] [place] [address] MR Abdomen WO contraston Diffuse hepatic steatosis and mild hepatomegaly. Mildly prominent gastrohepatic ligament lymph node. Report Dictated on Electronically Signed By: Karlene Acosta MD Electronically Signed Date/Time: 06/06/2023 4:23 PM EDT [facility] EMERGENCY DEPARTMENT RADIOLOGY SYSTEM Patient Name: ANNE MARIE BATES : 1995 Exam Date/Time: 06/06/2023 15:26 Procedure: MR ABDOMEN WO CONTRAST Ordering Provider: LEAL LOGAN Reason For Exam: elevated LFTs, paceratitis, unknown cause MRI ABDOMEN WITHOUT with MRCP EXAM DATE AND TIME: 06/06/2023 3:26 PM EDT INDICATION: 27 years Female with elevated LFTs, paceratitis, unknown cause. Nausea and vomiting. Abdominal pain. TECHNIQUE: Multiplanar multisequence MR images of the abdomen were performed, including diffusion-weighted images without contrast. Thick section multi-angle and thin section multi-slice MRCP sequences were performed through the abdomen as well. Maximum intensity projection 3-D images were created with the latter data set on an independent workstation. COMPARISON: CT abdomen pelvis from 06/03/2023 FINDINGS: Lack of intravenous contrast material limits evaluation of the vascular and visceral structures. Liver: The liver is smooth in contour. Mild hepatomegaly. There is drop in signal on the opposed-phase images consistent with fat deposition. No focal liver lesion. Biliary tree: Status post cholecystectomy. No abnormal intrahepatic or extrahepatic ductal dilatation. No evidence of choledocholithiasis. Status post gastric bypass. No evidence of bowel obstruction. Postsurgical change of the ventral abdominal wall.. Spleen: Normal Adrenals:Normal Pancreas: Homogeneous without definite mass or peripancreatic fluid. No pancreatic duct dilation. No peripancreatic edema or peripancreatic fluid collection. Kidneys: No definite mass or hydronephrosis Lymph nodes: Mildly prominent gastrohepatic ligament lymph node, measuring 11 mm in short axis dimension. Vasculature: Grossly unremarkable on this noncontrast exam. No significant collaterals or esophageal varices. Visualized Osseous structures: Mild degenerative change of the spine. [facility] EMERGENCY DEPARTMENT RADIOLOGY SYSTEM Karlene Acosta M D - 06/06/2023 Patient Name: ANNE MARIE PETERSON : 1995 Exam Date/Time: 06/06/2023 15:26 Procedure: MR ABDOMEN WO CONTRAST Ordering Provider: LEAL LOGAN Reason For Exam: elevated LFTs, paceratitis, unknown cause MRI ABDOMEN WITHOUT with MRCP EXAM DATE AND TIME: 06/06/2023 3:26 PM EDT INDICATION: 27 years Female with elevated LFTs, paceratitis, unknown cause. Nausea and vomiting. Abdominal pain. TECHNIQUE: Multiplanar multisequence MR images of the abdomen were performed, including diffusion-weighted images without contrast. Thick section multi-angle and thin section multi-slice MRCP sequences were performed through the abdomen as well. Maximum intensity projection 3-D images were created with the latter data set on an independent workstation. COMPARISON: CT abdomen pelvis from 06/03/2023 FINDINGS: Lack of intravenous contrast material limits evaluation of the vascular and visceral structures. Liver: The liver is smooth in contour. Mild hepatomegaly. There is drop in signal on the opposed-phase images consistent with fat deposition. No focal liver lesion. Biliary tree: Status post cholecystectomy. No abnormal intrahepatic or extrahepatic ductal dilatation. No evidence of choledocholithiasis. Status post gastric bypass. No evidence of bowel obstruction. Postsurgical change of the ventral abdominal wall.. Spleen: Normal Adrenals:Normal Pancreas: Homogeneous without definite mass or peripancreatic fluid. No pancreatic duct dilation. No peripancreatic edema or peripancreatic fluid collection. Kidneys: No definite mass or hydronephrosis Lymph nodes: Mildly prominent gastrohepatic ligament lymph node, measuring 11 mm in short axis dimension. Vasculature: Grossly unremarkable on this noncontrast exam. No significant collaterals or esophageal varices. Visualized Osseous structures: Mild degenerative change of the spine. IMPRESSION: Diffuse hepatic steatosis and mild hepatomegaly. Mildly prominent gastrohepatic ligament lymph node. Report Dictated on Electronically Signed By: Karlene Acosta MD Electronically Signed Date/Time: 06/06/2023 4:23 PM EDT [facility] Radiology Study observation (narrative) [facility] alth MR Abdomen WO contrastOrdere d By: Karlene Acosta on 06-06-2023 [facility] NoWait Work Phone: Magnesium [Mass/Vol]on 06-05 Interpretation and review of laboratory results Normal [facility] No Panel Informationon 06-05 Interpretation and review of laboratory results Abnormal [facility] Progress Noteon 06-06-2023 Progress Note Needs screened for M RI please Normal [facility] Progress Note Normal [facility] CBC W Auto Differential pane l (Bld)Ordered By: [place] on 06-05-2023 Basophils (Bld) [#/Vol] 0.0 10*3/uL 0.0 - 0.2 10*3/uL [facility] Basophils/100 WBC (Bld) 0.3 % 0.0 - 2.0 % [facility] Eosinophils (Bld) [#/Vol] 0.2 10*3/uL 0.0 - 0.5 10*3/uL [facility] Eosinophils/100 WBC (Bld) 2.2 % 0.0 - 6.0 % [facility] Erythrocyte distribution width (RBC) [Ratio] 18.9 % High 11.5 - 15.0 % [facility] Hematocrit (Bld) [Volume fraction] 35.4 % 35.0 - 47.0 % [facility] Hemoglobin (Bld) [Mass/Vol] 10.7 g/dL Low 11.7 - 16.0 g/dL [facility] Immature granulocytes (Bld) [#/Vol] 0.1 10*3/uL High NINF - 0.1 10*3/uL [facility] Immature granulocytes/100 WBC (Bld) 0.7 % 0.0 - 2.0 % [facility] Interpretation and review of laboratory results Abnormal [facility] Lymphocytes (Bld) [#/Vol] 1.5 10*3/uL 1.0 - 4.3 10*3/uL [facility] Lymphocytes/100 WBC (Bld) 21.1 % 15.0 - 45.0 % [facility] MCH (RBC) [Entitic mass] 22.3 pg Low 26.0 - 34.0 pg [facility] MCHC (RBC) [Mass/Vol] 30.2 % Low 30.5 - 36.0 % [facility] MCV (RBC) [Entitic vol] 73.8 fL Low 77.0 - 99.0 fL [facility] Monocytes (Bld) [#/Vol] 0.6 10*3/uL 0.0 - 0.9 10*3/uL [facility] Monocytes/100 WBC (Bld) 7.6 % 5.0 - 13.0 % [facility] Neutrophils (Bld) [#/Vol] 4.9 10*3/uL 1.8 - 7.5 10*3/uL [facility] Neutrophils/100 WBC (Bld) 68.1 % 38.0 - 82.0 % [facility] Nucleated RBC/100 WBC (Bld) [Ratio] 0.0 % [facility] Platelet mean volume (Bld) [Entitic vol] 10.5 fL 9.0 - 12.7 fL [facility] Platelets (Bld) [#/Vol] 423 10*3/uL 140 - 440 10*3/uL [facility] RBC (Bld) [#/Vol] 4.80 10*6/uL 3.80 - 5.2 0 10*6/uL [facility] WBC (Bld) [#/Vol] 7.2 10*3/uL 3.6 - 10.7 10*3/uL [facility] CBC WITH AUTO DIFFERENTIALon 06-05-2023 Basophils (Bld) [#/Vol] 0.0 10*3/uL Normal 0.0-0.2 [facility] Comment on above: Performed By: #### L [id number] ####Senior Sustainability Advisor: HENNY WADE ([phone])[facility] [address] Basophils/100 WBC (Bld) 0.3 % Normal 0.0-2.0 [facility] Comment on above: Performed By: #### L [id number] ####Senior Sustainability Advisor: HENNY WADE ([phone])[facility])[address] [place] [address] Eosinophils (Bld) [#/Vol] 0.2 10*3/uL Normal 0.0-0.5 [facility] Comment on above: Performed By: #### L [id number] ####Senior Sustainability Advisor: HENNY WADE ([phone])[address] Eosinophils/100 WBC (Bld) 2.2 % Normal 0.0-6.0 [facility] Comment on above: Performed By: #### L [id number] ####Senior Sustainability Advisor: HENNY WADE ([phone])[facility])[address] [place] [address] Erythrocyte distribution width (RBC) [Ratio] 18.9 % High 11.5-15.0 [facility] Comment on above: Performed By: #### L [id number] ####Senior Sustainability Advisor: HENNY WADE ([phone])[address] Hematocrit (Bld) [Volume fraction] 35.4 % Normal 35.0-47.0 [facility] Comment on above: Performed By: #### L [id number] ####Senior Sustainability Advisor: HENNY WADE ([phone])[address] Hemoglobin (Bld) [Mass/Vol] 10.7 g/dL Low 11.7-16.0 [facility] Comment on above: Performed By: #### L [id number] ####Senior Sustainability Advisor: HENNY WADE ([phone])[facility])[address] [place] [address] IMMATURE GRANS % 0.7 % Normal 0.0-2.0 [facility] Comment on above: Performed By: #### L [id number] ####Senior Sustainability Advisor: HENNY WADE ([phone])[facility])[address] [place] [address] IMMATURE GRANS ABSOLUTE 0.1 10*3/uL High <0.1 [facility] Comment on above: Performed By: #### L [id number] ####Senior Sustainability Advisor: HENNY WADE ([phone])[facility])[address] [place] [address] Lymphocytes (Bld) [#/Vol] 1.5 10*3/uL Normal 1.0-4.3 [facility] Comment on above: Performed By: #### L [id number] ####Senior Sustainability Advisor: HENNY WADE ([phone])[address] Lymphocytes/100 WBC (Bld) 21.1 % Normal 15.0-45.0 [facility] Comment on above: Performed By: #### L [id number] ####Senior Sustainability Advisor: HENNY WADE ([phone])[address] MCH (RBC) [Entitic mass] 22.3 pg Low 26.0-34.0 [facility] Comment on above: Performed By: #### L [id number] ####Senior Sustainability Advisor: HENNY WADE ([phone])[address] MCHC 30.2 % Low 30.5-36.0 [facility] Comment on above: Performed By: #### L [id number] ####Senior Sustainability Advisor: HENNY WADE ([phone])[address] MCV (RBC) [Entitic vol] 73.8 fL Low 77.0-99.0 [facility] Comment on above: Performed By: #### L [id number] ####Senior Sustainability Advisor: HENNY WADE ([phone])[facility] ([facility])[address] [place] [address] Monocytes (Bld) [#/Vol] 0.6 10*3/uL Normal 0.0-0.9 [facility] Comment on above: Performed By: #### L [id number] ####Senior Sustainability Advisor: HENNY WADE ([phone])[facility] ([facility])[address] [place] [address] Monocytes/100 WBC (Bld) 7.6 % Normal 5.0-13.0 [facility] Comment on above: Performed By: #### L [id number] ####Senior Sustainability Advisor: HENNY WADE ([phone])[facility] ([facility])[address] [place] [address] NEUTROPHILS ABSOLUTE 4.9 10*3/uL Normal 1.8-7.5 [facility] Comment on above: Performed By: #### L [id number] ####Senior Sustainability Advisor: HENNY WADE ([phone])[facility] ([facility])[address] [place] [address] Neutrophils/100 WBC (Bld) 68.1 % Normal 38.0-82.0 [facility] Comment on above: Performed By: #### L [id number] ####Senior Sustainability Advisor: HENNY WADE ([phone])[facility] ([facility])[address] [place] [address] NRBC 0.0 /100 WBCs Normal 0.0-2.0 [facility] Comment on above: Performed By: #### L [id number] ####Senior Sustainability Advisor: HENNY WADE ([phone])[facility] ([facility])[address] [place] [address] Platelet mean volume (Bld) [Entitic vol] 10.5 fL Normal 9.0-12.7 [facility] Comment on above: Performed By: #### L [id number] ####Senior Sustainability Advisor: HENNY WADE ([phone])[facility] ([facility])[address] [place] [address] Platelets (Bld) [#/Vol] 423 10*3/uL Normal 140-440 [facility] Comment on above: Performed By: #### L [id number] ####Senior Sustainability Advisor: HENNY WADE ([phone])[facility] ([facility])[address] [place] [address] RBC (Bld) [#/Vol] 4.80 10*6/uL Normal 3.80-5.20 [facility] Comment on above: Performed By: #### L [id number] ####Senior Sustainability Advisor: HENNY WADE ([phone])[facility] ([facility])[address] [place] [address] WBC (Bld) [#/Vol] 7.2 10*3/uL Normal 3.6-10.7 [facility] Comment on above: Performed By: #### L [id number] ####Senior Sustainability Advisor: HENNY WADE ([phone])[facility] ([facility])[address] [place] [address] COMPREHENSIVE METABOLIC PANE Chavez 06-05-2023 Albumin [Mass/Vol] 3.7 g/dL Normal 3.5-5.0 [facility] Comment on above: Performed By: #### L AB99, [id number], LAB17 ####Senior Sustainability Advisor: HENNY WADE ([phone])[facility] ([facility])[address] [place] [address] ALP [Catalytic activity/Vol] 59 U/L Normal 38-126 [facility] Comment on above: Performed By: #### L AB99, [id number], LAB17 ####Senior Sustainability Advisor: HENNY WADE ([phone])[facility] ([facility])[address] [place] [address] ALT [Catalytic activity/Vol] 166 U/L High 0-34 [facility] Comment on above: Performed By: #### L AB99, [id number], LAB17 ####Senior Sustainability Advisor: HENNY WADE ([phone])[facility])[address] Anion gap [Moles/Vol] 14 mmol/L High 3-13 [facility] Comment on above: Performed By: #### Barrett AB99, [id number], LAB17 ####Senior Sustainability Advisor: HENNY WADE ([phone])[facility] ([facility])[address] [place] [address] AST [Catalytic activity/Vol] 131 U/L High 15-46 [facility] Comment on above: Performed By: #### Barrett AB99, [id number], LAB17 ####Senior Sustainability Advisor: HENNY WADE ([phone])[facility] ([facility])[address] [place] [address] Bilirubin [Mass/Vol] 2.0 mg/dL High 0.2-1.3 [facility] Comment on above: Performed By: #### Barrett ABBeth, [id number], LAB17 ####Senior Sustainability Advisor: HENNY WADE ([phone])[facility] ([facility])[address] [place] [address] Calcium [Mass/Vol] 8.7 mg/dL Normal 8.4-10.4 [facility] Comment on above: Performed By: #### Barrett WILDER, [id number], LAB17 ####Senior Sustainability Advisor: HENNY WADE ([phone])[facility] ([facility])[address] [place] [address] Chloride [Moles/Vol] 106 mmol/L Normal 98-107 [facility] Comment on above: Performed By: #### Barrett ABBeth, [id number], LAB17 ####Senior Sustainability Advisor: HENNY WADE ([phone])[facility] ([facility])[address] [place] [address] [place] CO2 [Moles/Vol] 22 mmol/L Normal 22-30 [facility] Comment on above: Performed By: #### L AB99, [id number], LAB17 ####Senior Sustainability Advisor: HENNY WADE ([phone])[facility] ([facility])[address] [place] [address] Creatinine [Mass/Vol] 0.51 mg/dL Low 0.52-1.04 [facility] Comment on above: Performed By: #### L AB99, [id number], LAB17 ####Senior Sustainability Advisor: HENNY WADE ([phone])[facility])[address] [place] [address] GLOMERULAR FILTRATION RATE ML/MIN/1.73 SQ M.PREDICTED >90.0 Normal >60.0 [facility] Comment on above: Result Comment: Calc ulation based on the Chronic Kidney Disease Epidemiology Collaboration (CKD-EPI) equation refit without adjustment for race Performed By: #### L AB99, [id number], LAB17 ####Senior Sustainability Advisor: HENNY WADE ([phone])[address] Glucose [Mass/Vol] 89 mg/dL Normal 70-100 [facility] Comment on above: Performed By: #### L AB99, [id number], LAB17 ####Senior Sustainability Advisor: HENNY WADE ([phone])[facility])[address] [place] [address] Potassium [Moles/Vol] 3.0 mmol/L Low 3.5-5.1 [facility] Comment on above: Performed By: #### L AB99, [id number], LAB17 ####Senior Sustainability Advisor: HENNY WADE ([phone])[address] Protein [Mass/Vol] 7.3 g/dL Normal 6.3-8.2 [facility] Comment on above: Performed By: #### L AB99, [id number], LAB17 ####Senior Sustainability Advisor: HENNY WADE ([phone])[facility])[address] [place] [address] [place] Sodium [Moles/Vol] 141 mmol/L Normal 135-145 [facility] Comment on above: Performed By: #### L AB99, [id number], LAB17 ####Senior Sustainability Advisor: HENNY WADE ([phone])[facility])[address] [place] [address] [place] Urea nitrogen [Mass/Vol] mg/dL Low 7-17 [facility] Comment on above: Performed By: #### L AB99, [id number], LAB17 ####Senior Sustainability Advisor: HENNY WADE ([phone])[facility] ([facility])[address] [place] [address] Comprehensive metabolic 1998 panelon 06-05-2023 Albumin [Mass/Vol] 3.7 g/dL 3.5 - 5.0 g/dL [facility] ALP [Catalytic activity/Vol] 59 U/L 38 - 126 U/L [facility] ALT [Catalytic activity/Vol] 166 U/L High 0 - 34 U/L [facility] Anion gap [Moles/Vol] 14 mmol/L High 3 - 13 mmol/L [facility] AST [Catalytic activity/Vol] 131 U/L High 15 - 46 U/L [facility] Bilirubin [Mass/Vol] 2.0 mg/dL High 0.2 - 1 .3 mg/dL [facility] Calcium [Mass/Vol] 8.7 mg/dL 8.4 - 10. 4 mg/dL [facility] Chloride [Moles/Vol] 106 mmol/L 98 - 10 7 mmol/L [facility] CO2 [Moles/Vol] 22 mmol/L 22 - 30 mmol/L [facility] Creatinine [Mass/Vol] 0.51 mg/dL Low 0.52 - 1.04 mg/dL [facility] GFR/1.73 sq M.predicted MDRD (S/P/Bld) [Vol rate/Area] - PINF [facility] Comment on above: Calculation based on the Chronic Kidney Disease Epidemiology Collaboration (CKD-EPI) equation refit without adjustment for race Glucose [Mass/Vol] 89 mg/dL 70 - 100 mg/dL [facility] Interpretation and review of laboratory results Abnormal [facility] Potassium [Moles/Vol] 3.0 mmol/L Low 3.5 - 5.1 mmol/L [facility] Protein [Mass/Vol] 7.3 g/dL 6.3 - 8.2 g/dL [facility] Sodium [Moles/Vol] 141 mmol/L 135 - 145 mmol/L [facility] Urea nitrogen [Mass/Vol] mg/dL Low 7 - 17 mg/dL [facility] LIPASEon 06-05-2023 Lipase [Catalytic activity/Vol] 3199 U/L High 23-300 [facility] Comment on above: Performed By: #### L AB99, [id number], LAB17 ####Senior Sustainability Advisor: HENNY WADE ([phone])[facility] ([facility])[address] [place] [address] Laboratory - Chemistry and C hemistry - challengeon 06-05-2023 Lipase [Catalytic activity/Vol] 3199 U/L High 23 - 300 U/L [facility] Magnesium [Mass/Vol] 1.6 mg/dL 1.6 - 2 .3 mg/dL [facility] Lipase [Catalytic activity/V ol]on 06-05-2023 Interpretation and review of laboratory results Abnormal [facility] MAGNESIUMon 06-05-2023 Magnesium [Mass/Vol] 1.6 mg/dL Normal 1.6-2.3 [facility] Comment on above: Performed By: #### L AB99, [id number], LAB17 ####Senior Sustainability Advisor: HENNY WADE ([phone])[facility])[address] [place] [address] [place] Magnesium [Mass/Vol]on 06-04 Interpretation and review of laboratory results Normal [facility] Progress Noteon 06-05-2023 Progress Note Nutrition rescreen completed. Patient is NPO/Clear liquid >3 days. Refer to Dietitian. Normal [facility] Progress Note Normal [facility] 36on 06-04-2023 36 Noted, thanks Normal [facility] 36 Normal [facility] BILIRUBIN, DIRECTon 06-04-19 24 Bilirubin.indirect [Mass/Vol] 0.0 mg/dL Normal 0.0-0.3 [facility] Comment on above: Performed By: #### L AB17, LAB52, LAB99, [id number] ####Senior Sustainability Advisor: HENNY WADE ([phone])[facility] ([facility])[address] [place] [address] Bilirubin.indirect [Mass/Vol ]on 06-04-2023 Bilirubin.conjugated [Mass/Vol] 0.0 mg/dL 0.0 - 0.3 mg/dL [facility] Interpretation and review of laboratory results Normal [facility] CARECOORDon 06-04-2023 [facility] Normal [facility] CBC W Auto Differential pane l (Bld)Ordered By: Oral Junior on 06-04-2023 Basophils (Bld) [#/Vol] 0.0 10*3/uL 0.0 - 0.2 10*3/uL [facility] Basophils/100 WBC (Bld) 0.4 % 0.0 - 2.0 % [facility] Eosinophils (Bld) [#/Vol] 0.2 10*3/uL 0.0 - 0.5 10*3/uL [facility] Eosinophils/100 WBC (Bld) 2.1 % 0.0 - 6.0 % [facility] Erythrocyte distribution width (RBC) [Ratio] 18.5 % High 11.5 - 15.0 % [facility] Hematocrit (Bld) [Volume fraction] 34.2 % Low 35.0 - 47.0 % [facility] Hemoglobin (Bld) [Mass/Vol] 10.3 g/dL Low 11.7 - 16.0 g/dL [facility] Immature granulocytes (Bld) [#/Vol] 0.1 10*3/uL High NINF - 0.1 10*3/uL [facility] Immature granulocytes/100 WBC (Bld) 0.7 % 0.0 - 2.0 % [facility] Interpretation and review of laboratory results Abnormal [facility] Lymphocytes (Bld) [#/Vol] 1.7 10*3/uL 1.0 - 4.3 10*3/uL [facility] Lymphocytes/100 WBC (Bld) 21.5 % 15.0 - 45.0 % [facility] MCH (RBC) [Entitic mass] 21.9 pg Low 26.0 - 34.0 pg [facility] MCHC (RBC) [Mass/Vol] 30.1 % Low 30.5 - 36.0 % [facility] MCV (RBC) [Entitic vol] 72.6 fL Low 77.0 - 99.0 fL [facility] Monocytes (Bld) [#/Vol] 0.8 10*3/uL 0.0 - 0.9 10*3/uL [facility] Monocytes/100 WBC (Bld) 9.6 % 5.0 - 13.0 % [facility] Neutrophils (Bld) [#/Vol] 5.3 10*3/uL 1.8 - 7.5 10*3/uL [facility] Neutrophils/100 WBC (Bld) 65.7 % 38.0 - 82.0 % [facility] Nucleated RBC/100 WBC (Bld) [Ratio] 0.0 % [facility] Platelet mean volume (Bld) [Entitic vol] 10.6 fL 9.0 - 12.7 fL [facility] Platelets (Bld) [#/Vol] 414 10*3/uL 140 - 440 10*3/uL [facility] RBC (Bld) [#/Vol] 4.71 10*6/uL 3.80 - 5.2 0 10*6/uL [facility] WBC (Bld) [#/Vol] 8.1 10*3/uL 3.6 - 10.7 10*3/uL [facility] CBC WITH AUTO DIFFERENTIALon 06-04-2023 Basophils (Bld) [#/Vol] 0.0 10*3/uL Normal 0.0-0.2 [facility] Comment on above: Performed By: #### L [id number] ####Senior Sustainability Advisor: HENNY WADE ([phone])[address] Basophils/100 WBC (Bld) 0.4 % Normal 0.0-2.0 [facility] Comment on above: Performed By: #### L [id number] ####Senior Sustainability Advisor: HENNY WADE ([phone])[facility] ([facility])[address] [place] [address] [place] Eosinophils (Bld) [#/Vol] 0.2 10*3/uL Normal 0.0-0.5 [facility] Comment on above: Performed By: #### L [id number] ####Senior Sustainability Advisor: HENNY WADE ([phone])[facility])[address] [place] [address] [place] Eosinophils/100 WBC (Bld) 2.1 % Normal 0.0-6.0 [facility] Comment on above: Performed By: #### L [id number] ####Senior Sustainability Advisor: HENNY WADE ([phone])[address] Erythrocyte distribution width (RBC) [Ratio] 18.5 % High 11.5-15.0 [facility] Comment on above: Performed By: #### L [id number] ####Senior Sustainability Advisor: HENNY WADE ([phone])[address] Hematocrit (Bld) [Volume fraction] 34.2 % Low 35.0-47.0 [facility] Comment on above: Performed By: #### L [id number] ####Senior Sustainability Advisor: HENNY WADE ([phone])[address] Hemoglobin (Bld) [Mass/Vol] 10.3 g/dL Low 11.7-16.0 [facility] Comment on above: Performed By: #### L [id number] ####Senior Sustainability Advisor: HENNY WADE ([phone])[address] IMMATURE GRANS % 0.7 % Normal 0.0-2.0 [facility] Comment on above: Performed By: #### L [id number] ####Senior Sustainability Advisor: HENNY WADE ([phone])[address] IMMATURE GRANS ABSOLUTE 0.1 10*3/uL High <0.1 [facility] Comment on above: Performed By: #### L [id number] ####Senior Sustainability Advisor: HENNY WADE ([phone])[address] Lymphocytes (Bld) [#/Vol] 1.7 10*3/uL Normal 1.0-4.3 [facility] Comment on above: Performed By: #### L [id number] ####Senior Sustainability Advisor: HENNY [phone])[facility])[address] [place] [address] Lymphocytes/100 WBC (Bld) 21.5 % Normal 15.0-45.0 [facility] Comment on above: Performed By: #### L [id number] ####Senior Sustainability Advisor: HENNY WADE ([phone])[facility])[address] [place] [address] MCH (RBC) [Entitic mass] 21.9 pg Low 26.0-34.0 [facility] Comment on above: Performed By: #### L [id number] ####Senior Sustainability Advisor: HENNY WADE ([phone])[facility])[address] [place] [address] MCHC 30.1 % Low 30.5-36.0 [facility] Comment on above: Performed By: #### L [id number] ####Senior Sustainability Advisor: HENNY WADE ([phone])[facility])[address] [place] [address] MCV (RBC) [Entitic vol] 72.6 fL Low 77.0-99.0 [facility] Comment on above: Performed By: #### L [id number] ####Senior Sustainability Advisor: HENNY WADE ([phone])[facility])[address] [place] [address] Monocytes (Bld) [#/Vol] 0.8 10*3/uL Normal 0.0-0.9 [facility] Comment on above: Performed By: #### L [id number] ####Senior Sustainability Advisor: HENNY WADE ([phone])[facility])[address] [place] [address] Monocytes/100 WBC (Bld) 9.6 % Normal 5.0-13.0 [facility] Comment on above: Performed By: #### L [id number] ####Senior Sustainability Advisor: HENNY WADE ([phone])[facility])[address] [place] [address] NEUTROPHILS ABSOLUTE 5.3 10*3/uL Normal 1.8-7.5 [facility] Comment on above: Performed By: #### L [id number] ####Senior Sustainability Advisor: HENNY WADE ([phone])[facility] ([facility])[address] [place] [address] Neutrophils/100 WBC (Bld) 65.7 % Normal 38.0-82.0 [facility] Comment on above: Performed By: #### L [id number] ####Senior Sustainability Advisor: HENNY WADE ([phone])[facility] ([facility])[address] [place] [address] NRBC 0.0 /100 WBCs Normal 0.0-2.0 [facility] Comment on above: Performed By: #### L [id number] ####Senior Sustainability Advisor: HENNY WADE ([phone])[facility] ([facility])[address] [place] [address] Platelet mean volume (Bld) [Entitic vol] 10.6 fL Normal 9.0-12.7 [facility] Comment on above: Performed By: #### L [id number] ####Senior Sustainability Advisor: HENNY WADE ([phone])[facility] ([facility])[address] [place] [address] Platelets (Bld) [#/Vol] 414 10*3/uL Normal 140-440 [facility] Comment on above: Performed By: #### L [id number] ####Senior Sustainability Advisor: HENNY WADE ([phone])[facility] ([facility])[address] [place] [address] RBC (Bld) [#/Vol] 4.71 10*6/uL Normal 3.80-5.20 [facility] Comment on above: Performed By: #### L [id number] ####Senior Sustainability Advisor: HENNY WADE ([phone])[facility] ([facility])[address] [place] [address] [place] WBC (Bld) [#/Vol] 8.1 10*3/uL Normal 3.6-10.7 [facility] Comment on above: Performed By: #### L [id number] ####Senior Sustainability Advisor: HENNY WADE ([phone])[facility])[address] [place] [address] COMPREHENSIVE METABOLIC PANE Chavez 06-04-2023 Albumin [Mass/Vol] 3.7 g/dL Normal 3.5-5.0 [facility] Comment on above: Performed By: #### L AB17, LAB52, LAB99, [id number] ####Senior Sustainability Advisor: HENNY WADE ([phone])[facility] ([facility])[address] [place] [address] ALP [Catalytic activity/Vol] 55 U/L Normal 38-126 [facility] Comment on above: Performed By: #### L AB17, LAB52, LAB99, [id number] ####Senior Sustainability Advisor: HENNY WADE ([phone])[facility])[address] [place] [address] ALT [Catalytic activity/Vol] 127 U/L High 0-34 [facility] Comment on above: Performed By: #### L AB17, LAB52, LAB99, [id number] ####Senior Sustainability Advisor: HENNY WADE ([phone])[facility] ([facility])[address] [place] [address] Anion gap [Moles/Vol] 14 mmol/L High 3-13 [facility] Comment on above: Performed By: #### L AB17, LAB52, LAB99, [id number] ####Senior Sustainability Advisor: HENNY WADE ([phone])[facility] ([facility])[address] [place] [address] AST [Catalytic activity/Vol] 111 U/L High 15-46 [facility] Comment on above: Performed By: #### L AB17, LAB52, LAB99, [id number] ####Senior Sustainability Advisor: HENNY WADE ([phone])[facility])[address] [place] [address] Bilirubin [Mass/Vol] 1.8 mg/dL High 0.2-1.3 [facility] Comment on above: Performed By: #### L AB17, LAB52, LAB99, [id number] ####Senior Sustainability Advisor: HENNY WADE ([phone])[facility])[address] [place] [address] Calcium [Mass/Vol] 8.4 mg/dL Normal 8.4-10.4 [facility] Comment on above: Performed By: #### L AB17, LAB52, LAB99, [id number] ####Senior Sustainability Advisor: HENNY WADE ([phone])[facility] ([facility])[address] [place] [address] Chloride [Moles/Vol] 106 mmol/L Normal 98-107 [facility] Comment on above: Performed By: #### L AB17, LAB52, LAB99, [id number] ####Senior Sustainability Advisor: HENNY WADE ([phone])[facility] ([facility])[address] [place] [address] CO2 [Moles/Vol] 18 mmol/L Low 22-30 [facility] Comment on above: Performed By: #### L AB17, LAB52, LAB99, [id number] ####Senior Sustainability Advisor: HENNY WADE ([phone])[facility] ([facility])[address] [place] [address] Creatinine [Mass/Vol] 0.55 mg/dL Normal 0.52-1.04 [facility] Comment on above: Performed By: #### L AB17, LAB52, LAB99, [id number] ####Senior Sustainability Advisor: HENNY WADE ([phone])[facility] ([facility])[address] [place] [address] GLOMERULAR FILTRATION RATE ML/MIN/1.73 SQ M.PREDICTED >90.0 Normal >60.0 [facility] Comment on above: Result Comment: Calc ulation based on the Chronic Kidney Disease Epidemiology Collaboration (CKD-EPI) equation refit without adjustment for race Performed By: #### L AB17, LAB52, LAB99, [id number] ####Senior Sustainability Advisor: HENNY WADE ([phone])[facility] ([facility])[address] [place] [address] Glucose [Mass/Vol] 99 mg/dL Normal 70-100 [facility] Comment on above: Performed By: #### L AB17, LAB52, LAB99, [id number] ####Senior Sustainability Advisor: HENNY WADE ([phone])[facility] ([facility])[address] [place] [address] Potassium [Moles/Vol] 3.2 mmol/L Low 3.5-5.1 [facility] Comment on above: Performed By: #### L AB17, LAB52, LAB99, [id number] ####Senior Sustainability Advisor: HENNY WADE ([phone])[facility] ([facility])[address] [place] [address] Protein [Mass/Vol] 7.3 g/dL Normal 6.3-8.2 [facility] Comment on above: Performed By: #### L AB17, LAB52, LAB99, [id number] ####Senior Sustainability Advisor: HENNY WADE ([phone])[facility] ([facility])[address] [place] [address] Sodium [Moles/Vol] 138 mmol/L Normal 135-145 [facility] Comment on above: Performed By: #### L AB17, LAB52, LAB99, [id number] ####Senior Sustainability Advisor: HENNY WADE ([phone])[facility] ([facility])[address] [place] [address] Urea nitrogen [Mass/Vol] mg/dL Low 7-17 [facility] Comment on above: Performed By: #### L AB17, LAB52, LAB99, [id number] ####Senior Sustainability Advisor: HENNY WADE ([phone])[facility] ([facility])[address] [place] [address] Comprehensive metabolic 1998 panelon 06-04-2023 Albumin [Mass/Vol] 3.7 g/dL 3.5 - 5.0 g/dL [facility] ALP [Catalytic activity/Vol] 55 U/L 38 - 126 U/L [facility] ALT [Catalytic activity/Vol] 127 U/L High 0 - 34 U/L [facility] Anion gap [Moles/Vol] 14 mmol/L High 3 - 13 mmol/L [facility] AST [Catalytic activity/Vol] 111 U/L High 15 - 46 U/L [facility] Bilirubin [Mass/Vol] 1.8 mg/dL High 0.2 - 1 .3 mg/dL [facility] Calcium [Mass/Vol] 8.4 mg/dL 8.4 - 10. 4 mg/dL [facility] Chloride [Moles/Vol] 106 mmol/L 98 - 10 7 mmol/L [facility] CO2 [Moles/Vol] 18 mmol/L Low 22 - 30 mmol/L [facility] Creatinine [Mass/Vol] 0.55 mg/dL 0.52 - 1.04 mg/dL [facility] GFR/1.73 sq M.predicted MDRD (S/P/Bld) [Vol rate/Area] - PINF [facility] Comment on above: Calculation based on the Chronic Kidney Disease Epidemiology Collaboration (CKD-EPI) equation refit without adjustment for race Glucose [Mass/Vol] 99 mg/dL 70 - 100 mg/dL [facility] Interpretation and review of laboratory results Abnormal [facility] Potassium [Moles/Vol] 3.2 mmol/L Low 3.5 - 5.1 mmol/L [facility] Protein [Mass/Vol] 7.3 g/dL 6.3 - 8.2 g/dL [facility] Sodium [Moles/Vol] 138 mmol/L 135 - 145 mmol/L [facility] Urea nitrogen [Mass/Vol] mg/dL Low 7 - 17 mg/dL [facility] LIPASEon 06-04-2023 Lipase [Catalytic activity/Vol] 3319 U/L High 23-300 [facility] Comment on above: Performed By: #### L AB17, LAB52, LAB99, [id number] ####Senior Sustainability Advisor: HENNY WADE ([phone])[facility] ([address] Laboratory - Chemistry and C hemistry - challengeon 06-04-2023 Lipase [Catalytic activity/Vol] 3319 U/L High 23 - 300 U/L [facility] Magnesium [Mass/Vol] 1.6 mg/dL 1.6 - 2 .3 mg/dL [facility] Lipase [Catalytic activity/V ol]on 06-04-2023 Interpretation and review of laboratory results Abnormal [facility] MAGNESIUMon 06-04-2023 Magnesium [Mass/Vol] 1.6 mg/dL Normal 1.6-2.3 [facility] Comment on above: Performed By: #### L AB17, LAB52, LAB99, [id number] ####Senior Sustainability Advisor: HENNY WADE ([phone])[facility] ([facility])[address] [place] [address] Magnesium [Mass/Vol]on 06-03 Interpretation and review of laboratory results Normal [facility] Progress Noteon 06-04-2023 Progress Note Normal [facility] RF Upper gastrointestinal tr act and Small bowel Single view W contrast Rex 06-04-2023 Mild narrowing of the gastrojejunostomy. Consider endoscopy. Small hiatal hernia without gastroesophageal reflux. Report Dictated on Electronically Signed By: Liborio Aiken MD Electronically Signed Date/Time: 06/04/2023 11:30 AM EDT [facility] EMERGENCY [facility]PARTMENT [employer] [facility] 1995 [id number] Exam Date/Time: 06/04/2023 10:47 Procedure: FL UPPER GI DOUBLE CONTRAST W KUB Ordering Provider: CAMPBELL JOHN Reason For Exam: ABDOMINAL SURGERY AIR CONTRAST UPPER GI SERIES History: Nausea and vomiting, pancreatitis. Gastric bypass April 2023. Fluoroscopy dose: Ka,r = 366.1 mGy FINDINGS: The exam was performed using barium and air administered orally. There is a small hiatal hernia without spontaneous gastroesophageal reflux. The esophagus is otherwise normally outlined without narrowing. There are postsurgical changes compatible with remote gastric bypass, subtotal gastrectomy and gastrojejunostomy. There is contrast emptying from the gastric pouch into the jejunum through gastrojejunostomy which is patent without obstruction or stomal ulcerations. There is mild narrowing of the gastrojejunostomy. The partially visualized proximal jejunal loops are unremarkable. [facility] EMERGENCY DEPARTMENT [employer] Liborio Aiken MD - 06/04/2023 Patient Name: ANNE MARIE PETERSON : 1995 Exam Date/Time: 06/04/2023 10:47 Procedure: FL UPPER GI DOUBLE CONTRAST W KUB Ordering Provider: CAMPBELL JOHN Reason For Exam: ABDOMINAL SURGERY AIR CONTRAST UPPER GI SERIES History: Nausea and vomiting, pancreatitis. Gastric bypass April 2023. Fluoroscopy dose: Ka,r = 366.1 mGy FINDINGS: The exam was performed using barium and air administered orally. There is a small hiatal hernia without spontaneous gastroesophageal reflux. The esophagus is otherwise normally outlined without narrowing. There are postsurgical changes compatible with remote gastric bypass, subtotal gastrectomy and gastrojejunostomy. There is contrast emptying from the gastric pouch into the jejunum through gastrojejunostomy which is patent without obstruction or stomal ulcerations. There is mild narrowing of the gastrojejunostomy. The partially visualized proximal jejunal loops are unremarkable. IMPRESSION: Mild narrowing of the gastrojejunostomy. Consider endoscopy. Small hiatal hernia without gastroesophageal reflux. Report Dictated on Electronically Signed By: Liborio Aiken MD Electronically Signed Date/Time: 06/04/2023 11:30 AM EDT [facility] Radiology Study observation (narrative) [facility] alth RF Upper gastrointestinal tr act and Small bowel Single view W contrast POOrdered By: Liborio Aiken on 06-04-2023 [facility] 36on 06-03-2023 36 Ladies- FYI- pt here to get fluids today, thanks Normal [facility]S CBC W Auto Differential pane l (Bld)Ordered By: Barbara Isidro on 06-03-2023 Basophils (Bld) [#/Vol] 0.0 10*3/uL 0.0 - 0.2 10*3/uL [facility] Basophils/100 WBC (Bld) 0.4 % 0.0 - 2.0 % [facility] Eosinophils (Bld) [#/Vol] 0.1 10*3/uL 0.0 - 0.5 10*3/uL [facility] Eosinophils/100 WBC (Bld) 1.7 % 0.0 - 6.0 % [facility] Erythrocyte distribution width (RBC) [Ratio] 18.9 % High 11.5 - 15.0 % [facility] Hematocrit (Bld) [Volume fraction] 39.4 % 35.0 - 47.0 % [facility] Hemoglobin (Bld) [Mass/Vol] 11.8 g/dL 11.7 - 16.0 g/dL [facility] Immature granulocytes (Bld) [#/Vol] 0.1 10*3/uL High NINF - 0.1 10*3/uL [facility] Immature granulocytes/100 WBC (Bld) 0.7 % 0.0 - 2.0 % [facility] Interpretation and review of laboratory results Abnormal [facility] Lymphocytes (Bld) [#/Vol] 2.0 10*3/uL 1.0 - 4.3 10*3/uL [facility] Lymphocytes/100 WBC (Bld) 24.7 % 15.0 - 45.0 % [facility] MCH (RBC) [Entitic mass] 21.9 pg Low 26.0 - 34.0 pg [facility] MCHC (RBC) [Mass/Vol] 29.9 % Low 30.5 - 36.0 % [facility] MCV (RBC) [Entitic vol] 73.1 fL Low 77.0 - 99.0 fL [facility] Monocytes (Bld) [#/Vol] 0.7 10*3/uL 0.0 - 0.9 10*3/uL [facility] Monocytes/100 WBC (Bld) 8.4 % 5.0 - 13.0 % [facility] Neutrophils (Bld) [#/Vol] 5.2 10*3/uL 1.8 - 7.5 10*3/uL [facility] Neutrophils/100 WBC (Bld) 64.1 % 38.0 - 82.0 % [facility] Nucleated RBC/100 WBC (Bld) [Ratio] 0.0 % [facility] Platelet mean volume (Bld) [Entitic vol] 10.9 fL 9.0 - 12.7 fL [facility] Platelets (Bld) [#/Vol] 522 10*3/uL High 140 - 440 10*3/uL [facility] RBC (Bld) [#/Vol] 5.39 10*6/uL High 3.80 - 5.2 0 10*6/uL [facility] WBC (Bld) [#/Vol] 8.1 10*3/uL 3.6 - 10.7 10*3/uL [facility] CBC WITH AUTO DIFFERENTIALon 06-03-2023 Basophils (Bld) [#/Vol] 0.0 10*3/uL Normal 0.0-0.2 [facility] Comment on above: Performed By: #### L [id number] ####Senior Sustainability Advisor: STERLING SERNA ([phone])[facility] [place] ([facility])[address] Basophils/100 WBC (Bld) 0.4 % Normal 0.0-2.0 [facility] Comment on above: Performed By: #### L [id number] ####Senior Sustainability Advisor: STERLING SERNA ([phone])[facility] [place] (SBAB)[address] [place] [address] Eosinophils (Bld) [#/Vol] 0.1 10*3/uL Normal 0.0-0.5 [facility] Comment on above: Performed By: #### L [id number] ####Senior Sustainability Advisor: STERLING SERNA ([phone])[facility] [place] (SBHLAB)[address] [place] [address] Eosinophils/100 WBC (Bld) 1.7 % Normal 0.0-6.0 [facility] Comment on above: Performed By: #### L [id number] ####Senior Sustainability Advisor: STERLING SERNA ([phone])[facility] ([facility])[address] [place] [address] Erythrocyte distribution width (RBC) [Ratio] 18.9 % High 11.5-15.0 [facility] Comment on above: Performed By: #### L [id number] ####Senior Sustainability Advisor: STERLING SERNA ([phone])[facility] (SBAB)[address] [place] [address] Hematocrit (Bld) [Volume fraction] 39.4 % Normal 35.0-47.0 [facility] Comment on above: Performed By: #### L [id number] ####Senior Sustainability Advisor: STERLING GARNERSANDRA ([phone])[facility] ([facility])[address] Hemoglobin (Bld) [Mass/Vol] 11.8 g/dL Normal 11.7-16.0 [facility] Comment on above: Performed By: #### L [id number] ####Senior Sustainability Advisor: STERLING GARNERSANDRA ([phone])[facility] ([facility])[address] IMMATURE GRANS % 0.7 % Normal 0.0-2.0 [facility] Comment on above: Performed By: #### L [id number] ####Senior Sustainability Advisor: STERLING GARNERSANDRA ([phone])[facility] IMMATURE GRANS ABSOLUTE 0.1 10*3/uL High <0.1 [facility] Comment on above: Performed By: #### L [id number] ####Senior Sustainability Advisor: STERLING GARNERSANDRA ([phone])[facility] [place] (SBAB)[address] Lymphocytes (Bld) [#/Vol] 2.0 10*3/uL Normal 1.0-4.3 [facility] Comment on above: Performed By: #### L [id number] ####Senior Sustainability Advisor: STERLING SERNA ([phone])[facility] [place] (SBAB)[address] [place] [address] [place] Lymphocytes/100 WBC (Bld) 24.7 % Normal 15.0-45.0 [facility] Comment on above: Performed By: #### L [id number] ####Senior Sustainability Advisor: STERLING SERNA ([phone])[facility] [place] (SBAB)[address] MCH (RBC) [Entitic mass] 21.9 pg Low 26.0-34.0 [facility] Comment on above: Performed By: #### L [id number] ####Senior Sustainability Advisor: STERLING SERNA ([phone])[facility] [place] (SBHLAB)[address] MCHC 29.9 % Low 30.5-36.0 [facility] Comment on above: Performed By: #### L [id number] ####Senior Sustainability Advisor: STERLING SERNA ([phone])[facility] [place] (SBHLAB)[address] MCV (RBC) [Entitic vol] 73.1 fL Low 77.0-99.0 S [facility] Comment on above: Performed By: #### L [id number] ####Senior Sustainability Advisor: STERLING SERNA ([phone])[facility] [place] (SBHLAB)[address] Monocytes (Bld) [#/Vol] 0.7 10*3/uL Normal 0.0-0.9 [facility] Comment on above: Performed By: #### L [id number] ####Senior Sustainability Advisor: STERLING SERNA ([phone])[facility] [place] (SBHLAB)[address] Monocytes/100 WBC (Bld) 8.4 % Normal 5.0-13.0 [facility] Comment on above: Performed By: #### L [id number] ####Senior Sustainability Advisor: STERLING SERNA ([phone])[facility] [place] (SBHL[facility])[address] NEUTROPHILS ABSOLUTE 5.2 10*3/uL Normal 1.8-7.5 [facility] Comment on above: Performed By: #### L [id number] ####Senior Sustainability Advisor: STERLING SERNA ([phone])[facility] [place] (SBHL[facility])[address] Neutrophils/100 WBC (Bld) 64.1 % Normal 38.0-82.0 [facility] Comment on above: Performed By: #### L [id number] ####Senior Sustainability Advisor: STERLING SERNA ([phone])[facility] [place] (SB[facility])[address] NRBC 0.0 /100 WBCs Normal 0.0-2.0 [facility] Comment on above: Performed By: #### L [id number] ####Senior Sustainability Advisor: STERLING SERNA ([phone])[facility] [place] ([facility])[address] Platelet mean volume (Bld) [Entitic vol] 10.9 fL Normal 9.0-12.7 [facility] Comment on above: Performed By: #### L [id number] ####Senior Sustainability Advisor: STERLING SERNA ([phone])[facility] [place] ([facility])[address] Platelets (Bld) [#/Vol] 522 10*3/uL High 140-440 [facility] Comment on above: Performed By: #### L [id number] ####Senior Sustainability Advisor: STERLING SERNA ([phone])[facility] [place] ([facility])[address] RBC (Bld) [#/Vol] 5.39 10*6/uL High 3.80-5.20 [facility] Comment on above: Performed By: #### L [id number] ####Senior Sustainability Advisor: STERLING SERNA ([phone])[facility] [place] ([facility])[address] WBC (Bld) [#/Vol] 8.1 10*3/uL Normal 3.6-10.7 [facility] Comment on above: Performed By: #### L [id number] ####Senior Sustainability Advisor: STERLING SERNA ([phone])[facility] [place] ([facility])[address] COMPLETE URINALYSISon 2023 BACTERIA (#/HPF) IN URINE Many Abnormal Negative [facility] Comment on above: Performed By: #### L [id number] ####Senior Sustainability Advisor: STERLING GARNERSANDRA ([phone])[facility] [place] ([facility])[address] BILIRUBIN, TOTAL PRESENCE IN URINE 1 mg/dL Abnormal Negative [facility] Comment on above: Performed By: #### L [id number] ####Senior Sustainability Advisor: STERLING STONEEDMUND ([phone])[facility] [place] ([facility])[address] Clarity (U) Extra Turbid Abnormal [facility] Comment on above: Performed By: #### L [id number] ####Senior Sustainability Advisor: STERLING STONEEDMUND ([phone])[facility] [place] ([facility])[address] Color (U) Yellow Normal Lt. Yellow [facility] Comment on above: Performed By: #### L [id number] ####Senior Sustainability Advisor: STERLING GARNERSANDRA ([phone])[facility] [place] ([facility])[address] GLUCOSE (MG/DL) IN URINE Normal Normal Normal (<70) [facility] Comment on above: Performed By: #### L [id number] ####Senior Sustainability Advisor: STERLING GARNERSANDRA ([phone])[facility] [place] ([facility])[address] HEMOGLOBIN PRESENCE IN URINE 0.5 mg/dL Abnormal Negative [facility] Comment on above: Performed By: #### L [id number] ####Senior Sustainability Advisor: STERLING GARNERSANDRA ([phone])[facility] [place] ([facility])[address] HYALINE CASTS (#/LPF) IN URINE SEDIMENT BY MICROSCOPY 6-10 Abnormal Negative [facility] Comment on above: Performed By: #### L [id number] ####Senior Sustainability Advisor: STERLING GARNERSANDRA ([phone])[facility] [place] ([facility])[address] [place] [address] [place] Ketones Ql (U) >150 Abnormal Negative [facility] Comment on above: Performed By: #### L [id number] ####Senior Sustainability Advisor: STERLING SERNA ([phone])[facility] [place] ([facility])[address] LEUKOCYTE ESTERASE PRESENCE IN URINE BY TEST STRIP 250 Krish/uL Abnormal Negative [facility] Comment on above: Performed By: #### L [id number] ####Senior Sustainability Advisor: STERLING SERNA ([phone])[facility] [place] ([facility])[address] [place] [address] [place] MUCUS (#/LPF) IN URINE SEDIMENT Many Abnormal Negative [facility] Comment on above: Performed By: #### L [id number] ####Senior Sustainability Advisor: STERLING SERNA ([phone])[facility] [place] ([facility])[address] NITRITE PRESENCE IN URINE Negative Normal Negative [facility] Comment on above: Performed By: #### L [id number] ####Senior Sustainability Advisor: STERLING SERNA ([phone])[facility] [place] ([facility])[address] pH (U) 6.0 [pH] Normal 5.0-8.0 [facility] Comment on above: Performed By: #### L [id number] ####Senior Sustainability Advisor: STERLING SERNA ([phone])[facility] [place] ([facility])[address] [place] [address] [place] Protein (U) [Mass/Vol] 100 mg/dL Abnormal Negative [facility] Comment on above: Performed By: #### L [id number] ####Senior Sustainability Advisor: STERLING SERNA ([phone])[facility] [place] ([facility])[address] [place] [address] [place] RBC (#/HPF) IN URINE SEDIMENT 3-5 Abnormal 0-2 [facility] Comment on above: Performed By: #### L [id number] ####Senior Sustainability Advisor: STERLING SERNA ([phone])[facility] [place] ([facility])[address] Specific gravity (U) [Rel density] 1.020 Normal 1.005-1.030 [facility] Comment on above: Performed By: #### L [id number] ####Senior Sustainability Advisor: STERLING SERNA ([phone])[facility] ([facility])[address] SQUAMOUS EPITHELIAL CELLS (#/HPF) IN URINE SEDIMENT 6-10 Abnormal 3-5 [facility] Comment on above: Performed By: #### L [id number] ####Senior Sustainability Advisor: STERLING SERNA ([phone])[facility] [place] (SB[facility])[address] UROBILINOGEN (MG/DL) IN URINE 8 mg/dL Abnormal Normal (0-1) [facility] Comment on above: Performed By: #### L [id number] ####Senior Sustainability Advisor: STERLING SERNA ([phone])[facility] [place] (SBHLAB)[address] [place] [address] WBC (LEUKOCYTE) (#/HPF) IN URINE SEDIMENT 11-25 Abnormal 0-5 [facility] Comment on above: Performed By: #### L [id number] ####Senior Sustainability Advisor: STERLING SERNA ([phone])[facility] (SBHLAB)[address] [place] [address] COMPREHENSIVE METABOLIC PANE Chavez 06-03-2023 Albumin [Mass/Vol] 4.2 g/dL Normal 3.5-5.0 [facility] Comment on above: Performed By: #### L AB143, LAB99, LAB17 ####Senior Sustainability Advisor: STERLING SERNA ([phone])[facility] ([facility])[address] ALP [Catalytic activity/Vol] 65 U/L Normal 38-126 [facility] Comment on above: Performed By: #### L AB143, LAB99, LAB17 ####Senior Sustainability Advisor: STERLING SERNA ([phone])[facility] [place] ([facility])[address] [place] [address] [place] ALT [Catalytic activity/Vol] 135 U/L High 0-34 [facility] Comment on above: Performed By: #### Barrett AB143, LAB99, LAB17 ####Senior Sustainability Advisor: STERLING SERNA ([phone])[facility] [place] ([facility])[address] Anion gap [Moles/Vol] 16 mmol/L High 3-13 [facility] Comment on above: Performed By: #### L AB143, LAB99, LAB17 ####Senior Sustainability Advisor: STERLING SERNA ([phone])[facility] [place] ([facility])[address] AST [Catalytic activity/Vol] 106 U/L High 15-46 [facility] Comment on above: Performed By: #### Barrett GOODMAN, LAB99, LAB17 ####Senior Sustainability Advisor: STERLING SERNA ([phone])[facility] [place] ([facility])[address] Bilirubin [Mass/Vol] 2.0 mg/dL High 0.2-1.3 [facility] Comment on above: Performed By: #### Barrett ABBrook, LAB99, LAB17 ####Senior Sustainability Advisor: STERLING SERNA ([phone])[facility] ([facility])[address] Calcium [Mass/Vol] 8.9 mg/dL Normal 8.4-10.4 [facility] Comment on above: Performed By: #### L ABBrook, LAB99, LAB17 ####Senior Sustainability Advisor: STERLING SERNA ([phone])[facility] ([facility])[address] Chloride [Moles/Vol] 104 mmol/L Normal 98-107 [facility] Comment on above: Performed By: #### Barrett ABBrook, LAB99, LAB17 ####Senior Sustainability Advisor: STERLING SERNA ([phone])[facility] [place] ([facility])[address] [place] [address] [place] CO2 [Moles/Vol] 19 mmol/L Low 22-30 [facility] Comment on above: Performed By: #### L AB143, LAB99, LAB17 ####Senior Sustainability Advisor: STERLING SERNA ([phone])[facility] [place] ([facility])[address] Creatinine [Mass/Vol] 0.57 mg/dL Normal 0.52-1.04 [facility] Comment on above: Performed By: #### L AB143, LAB99, LAB17 ####Senior Sustainability Advisor: STERLING SERNA ([phone])[facility] ([facility])[address] GLOMERULAR FILTRATION RATE ML/MIN/1.73 SQ M.PREDICTED >90.0 Normal >60.0 [facility] Comment on above: Result Comment: Calc ulation based on the Chronic Kidney Disease Epidemiology Collaboration (CKD-EPI) equation refit without adjustment for race Performed By: #### L AB143, LAB99, LAB17 ####Senior Sustainability Advisor: STERLING SERNA ([phone])[facility] [place] ([facility])[address] Glucose [Mass/Vol] 103 mg/dL High 70-100 [facility] Comment on above: Performed By: #### L AB143, LAB99, LAB17 ####Senior Sustainability Advisor: STERLING SERNA ([phone])[facility] [place] ([facility])[address] [place] [address] [place] Potassium [Moles/Vol] 3.4 mmol/L Low 3.5-5.1 [facility] Comment on above: Performed By: #### L AB143, LAB99, LAB17 ####Senior Sustainability Advisor: STERLING SERNA ([phone])[facility] ([facility])[address] [place] [address] [place] Protein [Mass/Vol] 8.3 g/dL High 6.3-8.2 [facility] Comment on above: Performed By: #### L AB143, LAB99, LAB17 ####Senior Sustainability Advisor: STERLING SERNA ([phone])[facility] (SBHL[facility])[address] Sodium [Moles/Vol] 139 mmol/L Normal 135-145 [facility] Comment on above: Performed By: #### L AB143, LAB99, LAB17 ####Senior Sustainability Advisor: STERLING SERNA ([phone])[facility] (SB[facility])[address] Urea nitrogen [Mass/Vol] mg/dL Low 7-17 [facility] Comment on above: Performed By: #### L AB143, LAB99, LAB17 ####Senior Sustainability Advisor: STERLING SERNA ([phone])[facility] [place] (SBHLAB)[address] ABDOMEN PELVIS W CONTRAST on 06-03-2023 CT ABDOMEN PELVIS W CONTRAST Normal [facility] CT Abdomen and Pelvis W cont rast Christophe 06-03-2023 1. No acute process. Report Dictated on Electronically Signed By: Giorgio Sofia MD Electronically Signed Date/Time: 06/03/2023 9:12 PM [facility] 1995 [id number] Exam Date/Time: 06/03/2023 21:03 Procedure: CT ABDOMEN PELVIS W CONTRAST Ordering Provider: COLORADO JAY Reason For Exam: LLQ abdominal pain EXAMINATION: CT ABDOMEN PELVIS W CONTRAST CLINICAL HISTORY: Left lower quadrant abdominal pain COMPARISON: 05/19/2023 TECHNIQUE: Contiguous axial images were obtained through the abdomen and pelvis from the level of the diaphragmatic domes through the pubic symphysis following bolus administration of intravenous contrast. Dose reduction was employed with automated exposure control. FINDINGS: Included images of the lower thorax: No focal lung consolidation or pleural effusion. Hepatobiliary: The liver parenchyma has low attenuation consistent with hepatic steatosis. No focal suspicious hepatic lesion is present. There is no biliary dilatation. The gallbladder is surgically absent. Pancreas: Unremarkable Spleen: Unremarkable Adrenal Glands: Unremarkable Kidneys and ureters: No calculi or hydroureteronephrosis. Abdominal vasculature: Unremarkable GI tract: There is no evidence for obstruction. The patient is status post Sandra-en-Y gastric bypass. There is no evidence for an internal hernia. The appendix is within normal limits. Peritoneum and retroperitoneum: Trace fluid in the lesser sac. Otherwise no free air or free fluid. Lymph Nodes: No abdominal lymphadenopathy is evident. Pelvis: An IUD is in good position in the uterus. The ovaries are normal in size. No pelvic mass. Nondistended urinary bladder. Visualized musculoskeletal structures: No acute fracture or destructive osseous lesion is identified. [facility] EMERGENCY DEPARTMENT RADIOLOGY SYSTEM Giorgio Sofia M D - 06/03/2023 Patient Name: ANNE MARIE PETERSON : 1995 Exam Date/Time: 06/03/2023 21:03 Procedure: CT ABDOMEN PELVIS W CONTRAST Ordering Provider: COLORADO JAY Reason For Exam: LLQ abdominal pain EXAMINATION: CT ABDOMEN PELVIS W CONTRAST CLINICAL HISTORY: Left lower quadrant abdominal pain COMPARISON: 05/19/2023 TECHNIQUE: Contiguous axial images were obtained through the abdomen and pelvis from the level of the diaphragmatic domes through the pubic symphysis following bolus administration of intravenous contrast. Dose reduction was employed with automated exposure control. FINDINGS: Included images of the lower thorax: No focal lung consolidation or pleural effusion. Hepatobiliary: The liver parenchyma has low attenuation consistent with hepatic steatosis. No focal suspicious hepatic lesion is present. There is no biliary dilatation. The gallbladder is surgically absent. Pancreas: Unremarkable Spleen: Unremarkable Adrenal Glands: Unremarkable Kidneys and ureters: No calculi or hydroureteronephrosis. Abdominal vasculature: Unremarkable GI tract: There is no evidence for obstruction. The patient is status post Sandra-en-Y gastric bypass. There is no evidence for an internal hernia. The appendix is within normal limits. Peritoneum and retroperitoneum: Trace fluid in the lesser sac. Otherwise no free air or free fluid. Lymph Nodes: No abdominal lymphadenopathy is evident. Pelvis: An IUD is in good position in the uterus. The ovaries are normal in size. No pelvic mass. Nondistended urinary bladder. Visualized musculoskeletal structures: No acute fracture or destructive osseous lesion is identified. IMPRESSION: 1. No acute process. Report Dictated on Electronically Signed By: Giorgio Sofia MD Electronically Signed Date/Time: 06/03/2023 9:12 PM EDT [facility] Radiology Study observation (narrative) [facility] CT Abdomen and Pelvis W cont rast IVOrdered By: Giorgio Sofia on 06-03-2023 [facility] [employer] Work Phone: Comprehensive metabolic 1998 panelon 06-03-2023 Albumin [Mass/Vol] 4.2 g/dL 3.5 - 5.0 g/dL [facility] ALP [Catalytic activity/Vol] 65 U/L 38 - 126 U/L [facility] ALT [Catalytic activity/Vol] 135 U/L High 0 - 34 U/L [facility] Anion gap [Moles/Vol] 16 mmol/L High 3 - 13 mmol/L [facility] AST [Catalytic activity/Vol] 106 U/L High 15 - 46 U/L [facility] Bilirubin [Mass/Vol] 2.0 mg/dL High 0.2 - 1 .3 mg/dL [facility] Calcium [Mass/Vol] 8.9 mg/dL 8.4 - 10. 4 mg/dL [facility] Chloride [Moles/Vol] 104 mmol/L 98 - 10 7 mmol/L [facility] CO2 [Moles/Vol] 19 mmol/L Low 22 - 30 mmol/L [facility] Creatinine [Mass/Vol] 0.57 mg/dL 0.52 - 1.04 mg/dL [facility] GFR/1.73 sq M.predicted MDRD (S/P/Bld) [Vol rate/Area] - PINF [facility] Comment on above: Calculation based on the Chronic Kidney Disease Epidemiology Collaboration (CKD-EPI) equation refit without adjustment for race Glucose [Mass/Vol] 103 mg/dL High 70 - 100 mg/dL [facility] Interpretation and review of laboratory results Abnormal [facility] Potassium [Moles/Vol] 3.4 mmol/L Low 3.5 - 5.1 mmol/L [facility] Protein [Mass/Vol] 8.3 g/dL High 6.3 - 8.2 g/dL [facility] Sodium [Moles/Vol] 139 mmol/L 135 - 145 mmol/L [facility] Urea nitrogen [Mass/Vol] mg/dL Low 7 - 17 mg/dL [facility] ED Nursing Noteon 06-03-2023 ED Nursing Note SX at BS Osman Swartz RN 06/03/232299 [facility] ED Nursing Note Pt has even and equa l chest rise. Pt A+Ox4. Nabeel BRISENO talking to patient at this time. Sebastian Gibbs, KATALINA 06/03/232201 [facility] ED Nursing Note Pt transferring to [facility] by private car. Pt alright to leave IV in per Dr. [place]. Jolly Guajardo, KATALINA 06/03/232119 [facility] ED Nursing Note Pt presents to ED c/ o vomiting x2 days. Pt had gastric bypass on 06/09 . Pt endorses some blood in vomit today. Normal [facility] ED Provider Noteon ED Provider Note Normal [facility] HCG QUANTITATIVE BLOODon HCG QUANTITATIVE <2 Normal Females <=5 [facility] Comment on above: Result Comment: SPENCER Miranda COMMENTS:Values in should double every 2 to 3 days for the first 6 weeks. Elevated concentrations of human chorionic gonadotropin (hCG) measured in the first trimester of are observed in normal , but may serve as an indication of chorionic carcinoma, hydatiform mole, or multiple . Decreasing hCG concentrations indicate threatened or missed , recent termination of , ectopic , gestosis or intrauterine . Penny- and postmenopausal females may have detectable hCG concentrations (< or = to 14 mIU/mL) due to pituitary production of hCG. Serum follicle-stimulating hormone measurement may aid in ruling-out in this population. Cutoffs of greater than 20 to 45 mIU/mL have been suggested and are method dependent. False-elevations (called phantom human chorionic gonadotropin: hCG) may occur with patients who have human antianimal or heterophilic antibodies. Some specimens may not dilute linearly due to abnormal forms of hCG. Elevated hCG concentrations not associated with are found in patients with other diseases such as tumors of the germ cells, ovaries, bladder, pancreas, stomach, lungs, and liver. This test is not intended to detect or monitor tumors or gestational trophoblastic disease. Performed By: #### L AB143, LAB99, LAB17 ####Senior Sustainability Advisor: STERLING SERNA ([phone])[facility] (SB[facility])[address] LIPASEon 06-03-2023 Lipase [Catalytic activity/Vol] 3563 U/L High 23-300 [facility] Comment on above: Performed By: #### L AB143, LAB99, LAB17 ####Senior Sustainability Advisor: STERLING SERNA ([phone])[facility] ([facility])[address] Laboratory - Chemistry and C hemistry - challengeon 06-03-2023 HCG.beta subunit Qn Females <=5 mIU/mL [employer] [facility] Lipase [Catalytic activity/Vol] 3563 U/L High 23 - 300 U/L [employer] [facility] Lipase [Catalytic activity/V ol]on 06-03-2023 Interpretation and review of laboratory results Abnormal [facility] [employer] [facility] No Panel Informationon 06-02 Values in should double every 2 to 3 days for the first 6 weeks. Elevated concentrations of human chorionic gonadotropin (hCG) measured in the first trimester of are observed in normal , but may serve as an indication of chorionic carcinoma, hydatiform mole, or multiple . Decreasing hCG concentrations indicate threatened or missed , recent termination of , ectopic , gestosis or intrauterine . Penny- and postmenopausal females may have detectable hCG concentrations (< or = to 14 mIU/mL) due to pituitary production of hCG. Serum follicle-stimulating hormone measurement may aid in ruling-out in this population. Cutoffs of greater than 20 to 45 mIU/mL have been suggested and are method dependent. False-elevations (called phantom human chorionic gonadotropin: hCG) may occur with patients who have human antianimal or heterophilic antibodies. Some specimens may not dilute linearly due to abnormal forms of hCG. Elevated hCG concentrations not associated with are found in patients with other diseases such as tumors of the germ cells, ovaries, bladder, pancreas, stomach, lungs, and liver. This test is not intended to detect or monitor tumors or gestational trophoblastic disease. [facility] URINE CULTUREon 06-03-2023 Bacteria identified Cx Nom (U) Normal [facility] Comment on above: Performed By: #### L [id number] ####Senior Sustainability Advisor: HENNY WADE ([phone])[facility] ([facility])[address] [place] [address] Urinalysis complete panel (U )on 06-03-2023 Bacteria LM.HPF (Urine sed) [#/Area] Many Abnormal Negative /HPF [facility] Bilirubin Ql (U) 1 mg/dL Abnormal Negative [facility] alth Clarity (U) Extra Turbid Abnormal Clear [facility] Color (U) Yellow Lt. Yellow [facility] Epithelial cells.squamous LM.HPF (Urine sed) [#/Area] 6-10 [facility] Glucose Ql (U) Normal Normal (<70) mg/dL [facility] Hemoglobin Ql (U) 0.5 mg/dL Abnormal Negative [facility] ealth Hyaline casts Auto (Urine sed) [#/Area] 6-10 Abnormal Negative /LPF [facility] Interpretation and review of laboratory results Abnormal [facility] Ketones (U) [Mass/Vol] mg/dL Abnormal Negat harika mg/dL [facility] Leukocyte esterase Test strip Ql (U) 250 Abnormal Negative Krish/uL [facility] Mucus LM.HPF (Urine sed) [#/Area] Many Abnormal Negative /LPF [facility] Nitrite Ql (U) Negative Negative [facility] th pH (U) 6.0 [pH] 5.0 - 8.0 pH [facility] Protein (U) [Mass/Vol] 100 mg/dL Abnormal Negative [facility] RBC LM.HPF (Urine sed) [#/Area] 3-5 Abnormal [facility] Specific gravity (U) [Rel density] 1.020 1.005 - 1.030 [facility] Urobilinogen (U) [Mass/Vol] 8 mg/dL Abnormal Normal (0-1) [facility] WBC LM.HPF (Urine sed) [#/Area] 11-25 Abnormal [facility] 36on 05-31-2023 36 Noted, thanks Kimberley!! Normal [facility] Basic metabolic 1998 panelon 05-21-2023 Anion gap [Moles/Vol] 12 mmol/L 3 - 13 mmol/L [facility] Calcium [Mass/Vol] 8.5 mg/dL 8.4 - 10. 4 mg/dL [facility] Chloride [Moles/Vol] 104 mmol/L 98 - 10 7 mmol/L [facility] CO2 [Moles/Vol] 19 mmol/L Low 22 - 30 mmol/L [facility] Creatinine [Mass/Vol] 0.47 mg/dL Low 0.52 - 1.04 mg/dL [facility] GFR/1.73 sq M.predicted MDRD (S/P/Bld) [Vol rate/Area] - PINF [facility] Comment on above: Calculation based on the Chronic Kidney Disease Epidemiology Collaboration (CKD-EPI) equation refit without adjustment for race Glucose [Mass/Vol] 78 mg/dL 70 - 100 mg/dL [facility] Interpretation and review of laboratory results Abnormal [facility] Potassium [Moles/Vol] 3.1 mmol/L Low 3.5 - 5.1 mmol/L [facility] Sodium [Moles/Vol] 135 mmol/L 135 - 145 mmol/L [facility] Urea nitrogen [Mass/Vol] 2 mg/dL Low 7 - 17 mg/dL [facility] CBC W Auto Differential pane l (Bld)Ordered By: Kristen Carranza on 05-21-2023 Basophils (Bld) [#/Vol] 0.0 10*3/uL 0.0 - 0.2 10*3/uL [facility] Basophils/100 WBC (Bld) 0.4 % 0.0 - 2.0 % [facility] Eosinophils (Bld) [#/Vol] 0.2 10*3/uL 0.0 - 0.5 10*3/uL [facility] Eosinophils/100 WBC (Bld) 2.1 % 0.0 - 6.0 % [facility] Erythrocyte distribution width (RBC) [Ratio] 17.3 % High 11.5 - 15.0 % [facility] Hematocrit (Bld) [Volume fraction] 25.9 % Low 35.0 - 47.0 % [facility] Hemoglobin (Bld) [Mass/Vol] 7.9 g/dL Low 11.7 - 16.0 g/dL [facility] Immature granulocytes (Bld) [#/Vol] 0.1 10*3/uL High NINF - 0.1 10*3/uL [facility] Immature granulocytes/100 WBC (Bld) 0.8 % 0.0 - 2.0 % [facility] Interpretation and review of laboratory results Abnormal [facility] Lymphocytes (Bld) [#/Vol] 1.9 10*3/uL 1.0 - 4.3 10*3/uL [facility] Lymphocytes/100 WBC (Bld) 20.6 % 15.0 - 45.0 % [facility] MCH (RBC) [Entitic mass] 21.8 pg Low 26.0 - 34.0 pg [facility] MCHC (RBC) [Mass/Vol] 30.5 % 30.5 - 36.0 % [facility] MCV (RBC) [Entitic vol] 71.5 fL Low 77.0 - 99.0 fL [facility] Monocytes (Bld) [#/Vol] 0.7 10*3/uL 0.0 - 0.9 10*3/uL [facility] Monocytes/100 WBC (Bld) 7.8 % 5.0 - 13.0 % [facility] Neutrophils (Bld) [#/Vol] 6.2 10*3/uL 1.8 - 7.5 10*3/uL [facility] Neutrophils/100 WBC (Bld) 68.3 % 38.0 - 82.0 % [facility] Nucleated RBC/100 WBC (Bld) [Ratio] 0.0 % [facility] Platelet mean volume (Bld) [Entitic vol] 10.4 fL 9.0 - 12.7 fL [facility] Platelets (Bld) [#/Vol] 326 10*3/uL 140 - 440 10*3/uL [facility] RBC (Bld) [#/Vol] 3.62 10*6/uL Low 3.80 - 5.2 0 10*6/uL [facility] WBC (Bld) [#/Vol] 9.1 10*3/uL 3.6 - 10.7 10*3/uL [facility] Iron and Iron binding capaci ty panelon 05-21-2023 Interpretation and review of laboratory results Abnormal [facility] Iron [Mass/Vol] 41 ug/dL 37 - 170 ug/dL [facility] Iron binding capacity [Mass/Vol] 303 ug/dL 261 - 497 ug/dL [facility] Iron saturation [Mass fraction] 14 % Low 15 - 50 % [facility] Laboratory - Chemistry and C hemistry - challengeon 05-21-2023 Transferrin [Mass/Vol] 233 mg/dL 206 - 381 mg/dL [facility] Magnesium [Mass/Vol] 1.5 mg/dL Low 1.6 - 2 .3 mg/dL [facility] Magnesium [Mass/Vol]on 05-20 Interpretation and review of laboratory results Abnormal [facility] No Panel Informationon 05-20 Interpretation and review of laboratory results Normal [facility] ABO and Rh group Confirm Nom (Bld)on 05-20-2023 ABO group Nom (Bld) B [facility] D Ag Ql (RBC) Positive [facility] Basic metabolic 1998 panelon 05-20-2023 Anion gap [Moles/Vol] 14 mmol/L High 3 - 13 mmol/L [facility] Calcium [Mass/Vol] 8.6 mg/dL 8.4 - 10. 4 mg/dL [facility] Chloride [Moles/Vol] 105 mmol/L 98 - 10 7 mmol/L [facility] CO2 [Moles/Vol] 17 mmol/L Low 22 - 30 mmol/L [facility] Creatinine [Mass/Vol] 0.54 mg/dL 0.52 - 1.04 mg/dL [facility] GFR/1.73 sq M.predicted MDRD (S/P/Bld) [Vol rate/Area] - PINF [facility] Comment on above: Calculation based on the Chronic Kidney Disease Epidemiology Collaboration (CKD-EPI) equation refit without adjustment for race Glucose [Mass/Vol] 90 mg/dL 70 - 100 mg/dL [facility] Interpretation and review of laboratory results Abnormal [facility] Potassium [Moles/Vol] 3.5 mmol/L 3.5 - 5.1 mmol/L [facility] Sodium [Moles/Vol] 136 mmol/L 135 - 145 mmol/L [facility] Urea nitrogen [Mass/Vol] 3 mg/dL Low 7 - 17 mg/dL [facility] Blood type and Crossmatch pa brie (Bld)on 05-20-2023 ABO group Nom (Bld) B [facility] Blood group antibody screen GEL Ql Negative [facility] D Ag Ql (RBC) Positive [facility] CBC W Auto Differential pane l (Bld)Ordered By: [place] on 05-20-2023 Basophils (Bld) [#/Vol] 0.0 10*3/uL 0.0 - 0.2 10*3/uL [facility] Basophils/100 WBC (Bld) 0.3 % 0.0 - 2.0 % [facility] Eosinophils (Bld) [#/Vol] 0.1 10*3/uL 0.0 - 0.5 10*3/uL [facility] Eosinophils/100 WBC (Bld) 1.4 % 0.0 - 6.0 % [facility] Erythrocyte distribution width (RBC) [Ratio] 17.2 % High 11.5 - 15.0 % [facility] Hematocrit (Bld) [Volume fraction] 26.8 % Low 35.0 - 47.0 % [facility] Hemoglobin (Bld) [Mass/Vol] 8.4 g/dL Low 11.7 - 16.0 g/dL [facility] Immature granulocytes (Bld) [#/Vol] 0.1 10*3/uL High NINF - 0.1 10*3/uL [facility] Immature granulocytes/100 WBC (Bld) 1.3 % 0.0 - 2.0 % [facility] Interpretation and review of laboratory results Abnormal [facility] Lymphocytes (Bld) [#/Vol] 2.1 10*3/uL 1.0 - 4.3 10*3/uL [facility] Lymphocytes/100 WBC (Bld) 21.5 % 15.0 - 45.0 % [facility] MCH (RBC) [Entitic mass] 22.3 pg Low 26.0 - 34.0 pg [facility] MCHC (RBC) [Mass/Vol] 31.3 % 30.5 - 36.0 % [facility] MCV (RBC) [Entitic vol] 71.3 fL Low 77.0 - 99.0 fL [facility] Monocytes (Bld) [#/Vol] 0.8 10*3/uL 0.0 - 0.9 10*3/uL [facility] Monocytes/100 WBC (Bld) 8.1 % 5.0 - 13.0 % [facility] Neutrophils (Bld) [#/Vol] 6.5 10*3/uL 1.8 - 7.5 10*3/uL [facility] Neutrophils/100 WBC (Bld) 67.4 % 38.0 - 82.0 % [facility] Nucleated RBC/100 WBC (Bld) [Ratio] 0.0 % [facility] Platelet mean volume (Bld) [Entitic vol] 10.4 fL 9.0 - 12.7 fL [facility] Platelets (Bld) [#/Vol] 350 10*3/uL 140 - 440 10*3/uL [facility] RBC (Bld) [#/Vol] 3.76 10*6/uL Low 3.80 - 5.2 0 10*6/uL [facility] WBC (Bld) [#/Vol] 9.6 10*3/uL 3.6 - 10.7 10*3/uL [facility] Hemoglobin (Bld) [Mass/Vol]O rdered By: Romelia Whitfield on 05-20-2023 Hematocrit (Bld) [Volume fraction] 28.4 % Low 35.0 - 47.0 % [facility] Interpretation and review of laboratory results Abnormal [facility] Laboratory - Chemistry and C hemistry - challengeon 05-20-2023 Lipase [Catalytic activity/Vol] 565 U/L High 23 - 300 U/L [facility] Magnesium [Mass/Vol] 1.6 mg/dL 1.6 - 2 .3 mg/dL [facility] Laboratory - Hematology and Cell countsOrdered By: Romelia Whitfield on 05-20-2023 Hemoglobin (Bld) [Mass/Vol] 8.5 g/dL Low 11.7 - 16.0 g/dL [facility] Lipase [Catalytic activity/V ol]on 05-20-2023 Interpretation and review of laboratory results Abnormal [facility] Magnesium [Mass/Vol]on 05-19 Interpretation and review of laboratory results Normal [facility] No Panel Informationon 05-19 No evidence of deep vein or superficial vein thrombosis in the right lower extremity. Vessels demonstrate normal compressibility, color filling, and phasic and spontaneous flow. No evidence of deep vein or superficial vein thrombosis in the left lower extremity. Vessels demonstrate normal compressibility, color filling, and phasic and spontaneous flow. Right Lower Venous No evidence of deep vein or superficial vein thrombosis. The common femoral, saphenofemoral junction, femoral, popliteal, gastrocnemius, soleal, greater saphenous, posterior tibial, and peroneal veins were imaged in the transverse view and showed normal compressibility. The common femoral, middle femoral, and popliteal veins were imaged in the longitudinal view and showed normal color filling and normal phasic and spontaneous flow. Soleal Vein: Not visualized. Left Lower Venous No evidence of deep vein or superficial vein thrombosis. The common femoral, saphenofemoral junction, femoral, popliteal, gastrocnemius, soleal, greater saphenous, posterior tibial, and peroneal veins were imaged in the transverse view and showed normal compressibility. The common femoral, middle femoral, and popliteal veins were imaged in the longitudinal view and showed normal color filling and normal phasic and spontaneous flow. Soleal Vein: Not visualized. Corporate Analyst Details A branch scale, color Doppler imaging and spectral Doppler analysis ultrasound was performed. During the study longitudinal and transverse views were obtained. Pulsed wave doppler was performed. The exam was performed with the patient in the supine position. Overall the study quality was adequate. Study was technically difficult due to: body habitus. CV CPACS CBC W Auto Differential pane l (Bld)Ordered By: Jackson Arnold on 05-19-2023 Basophils (Bld) [#/Vol] 0.0 10*3/uL 0.0 - 0.2 10*3/uL [facility] Basophils/100 WBC (Bld) 0.3 % 0.0 - 2.0 % [facility] Eosinophils (Bld) [#/Vol] 0.1 10*3/uL 0.0 - 0.5 10*3/uL [facility] Eosinophils/100 WBC (Bld) 0.9 % 0.0 - 6.0 % [facility] Erythrocyte distribution width (RBC) [Ratio] 16.9 % High 11.5 - 15.0 % [facility] Hematocrit (Bld) [Volume fraction] 32.6 % Low 35.0 - 47.0 % [facility] Hemoglobin (Bld) [Mass/Vol] 10.1 g/dL Low 11.7 - 16.0 g/dL [facility] Immature granulocytes (Bld) [#/Vol] 0.1 10*3/uL High NINF - 0.1 10*3/uL [facility] Immature granulocytes/100 WBC (Bld) 1.1 % 0.0 - 2.0 % [facility] Interpretation and review of laboratory results Abnormal [facility] Lymphocytes (Bld) [#/Vol] 2.0 10*3/uL 1.0 - 4.3 10*3/uL [facility] Lymphocytes/100 WBC (Bld) 16.4 % 15.0 - 45.0 % [facility] MCH (RBC) [Entitic mass] 22.3 pg Low 26.0 - 34.0 pg [facility] MCHC (RBC) [Mass/Vol] 31.0 % 30.5 - 36.0 % [facility] MCV (RBC) [Entitic vol] 72.1 fL Low 77.0 - 99.0 fL [facility] Monocytes (Bld) [#/Vol] 1.0 10*3/uL High 0.0 - 0.9 10*3/uL [facility] Monocytes/100 WBC (Bld) 8.3 % 5.0 - 13.0 % [facility] Neutrophils (Bld) [#/Vol] 8.8 10*3/uL High 1.8 - 7.5 10*3/uL [facility] Neutrophils/100 WBC (Bld) 73.0 % 38.0 - 82.0 % [facility] Nucleated RBC/100 WBC (Bld) [Ratio] 0.0 % [facility] Platelet mean volume (Bld) [Entitic vol] 10.6 fL 9.0 - 12.7 fL [facility] Platelets (Bld) [#/Vol] 398 10*3/uL 140 - 440 10*3/uL [facility] RBC (Bld) [#/Vol] 4.52 10*6/uL 3.80 - 5.2 0 10*6/uL [facility] WBC (Bld) [#/Vol] 12.0 10*3/uL High 3.6 - 10.7 10*3/uL [facility] CT Abdomen and Pelvis Rita Saeed 05-19-2023 1. Mildly hyperdense or complex fluid noted about the liver and extending caudally into the pelvis suspicious for blood products and hemoperitoneum. Clinical correlation and follow-up as indicated. 2. Status post gastric bypass without evidence of oral contrast extravasation or mechanical obstruction. 3. Hepatosplenomegaly, and findings compatible with hepatic steatosis; small hypodensity adjacent to gallbladder fossa possibly representing cyst or hemangioma, but nonspecific. Follow-up as indicated. Critical Test Results: Results were discussed with Dr. Hamilton in the ED on August, at 1912 hours. Report Dictated on Electronically Signed By: Sarath Zurita MD Electronically Signed Date/Time: 05/19/2023 7:15 PM EDT [employer] [facility] 1995 [id number] Exam Date/Time: 05/19/2023 18:37 Procedure: CT ABDOMEN PELVIS W CONTRAST Ordering Provider: HAMILTON BRIGID Reason For Exam: upper abd pain status post gastric bypass on 05/10/23 CT ABDOMEN AND PELVIS WITH CONTRAST CLINICAL INDICATION: upper abd pain status post gastric bypass on 05/10/23 TECHNIQUE: CT scan of the abdomen and pelvis, with IV contrast. Oral contrast administered. Multiplanar reformations. Dose reduction was employed with automated exposure control. COMPARISON: None. FINDINGS: Abdomen: Visualized lung bases grossly unremarkable. Gallbladder surgically absent. Postsurgical changes of gastric bypass. Liver enlarged measuring 20 cm in maximum craniocaudal dimension and shows diffusely decreased attenuation. Small hypodensity adjacent to gallbladder fossa measuring 1.3 cm may represent cyst or hemangioma, but nonspecific. Mildly hyperdense or complex perihepatic fluid or blood measuring up to 1.5 cm in thickness, which extends caudally along the bilateral paracolic gutters and into the pelvis (Hounsfield unit around the liver = 48; pelvis = 43). Very small teardrop shaped focus of similar density in the lesser sac adjacent to the anastomosis site may represent stable. Spleen without significant abnormality. Pancreas without significant abnormality. Kidneys without significant abnormality. Adrenal glands without significant abnormality. Pelvis: Remainder of bowel grossly unremarkable, with contrast material extending through to the rectosigmoid colon. No apparent contrast extravasation or evidence of mechanical obstruction. Possible diminutive appendix or appendiceal remnant partially visualized and grossly unremarkable. No discrete abscess or apparent adenopathy. Abdominal aorta is nonaneurysmal. IUD noted in the uterus. Axial skeleton grossly intact. Small, fat-containing umbilical hernia, with mild soft tissue stranding probably postsurgical change or residual. [facility] EM[facility]GENCY [facility]PARTMENT [employer] Sarath Zurita MD - 05/19/2023 Patient Name: ANNE MARIE PETERSON : 1995 [facility]#: [id number] Exam Date/Time: 05/19/2023 18:37 Procedure: CT ABDOMEN PELVIS W CONTRAST Ordering Provider: HAMILTON BRIGID Reason For Exam: upper abd pain status post gastric bypass on 05/10/23 CT ABDOMEN AND PELVIS WITH CONTRAST CLINICAL INDICATION: upper abd pain status post gastric bypass on 05/10/23 TECHNIQUE: CT scan of the abdomen and pelvis, with IV contrast. Oral contrast administered. Multiplanar reformations. Dose reduction was employed with automated exposure control. COMPARISON: None. FINDINGS: Abdomen: Visualized lung bases grossly unremarkable. Gallbladder surgically absent. Postsurgical changes of gastric bypass. Liver enlarged measuring 20 cm in maximum craniocaudal dimension and shows diffusely decreased attenuation. Small hypodensity adjacent to gallbladder fossa measuring 1.3 cm may represent cyst or hemangioma, but nonspecific. Mildly hyperdense or complex perihepatic fluid or blood measuring up to 1.5 cm in thickness, which extends caudally along the bilateral paracolic gutters and into the pelvis (Hounsfield unit around the liver = 48; pelvis = 43). Very small teardrop shaped focus of similar density in the lesser sac adjacent to the anastomosis site may represent stable. Spleen without significant abnormality. Pancreas without significant abnormality. Kidneys without significant abnormality. Adrenal glands without significant abnormality. Pelvis: Remainder of bowel grossly unremarkable, with contrast material extending through to the rectosigmoid colon. No apparent contrast extravasation or evidence of mechanical obstruction. Possible diminutive appendix or appendiceal remnant partially visualized and grossly unremarkable. No discrete abscess or apparent adenopathy. Abdominal aorta is nonaneurysmal. IUD noted in the uterus. Axial skeleton grossly intact. Small, fat-containing umbilical hernia, with mild soft tissue stranding probably postsurgical change or residual. IMPRESSION: 1. Mildly hyperdense or complex fluid noted about the liver and extending caudally into the pelvis suspicious for blood products and hemoperitoneum. Clinical correlation and follow-up as indicated. 2. Status post gastric bypass without evidence of oral contrast extravasation or mechanical obstruction. 3. Hepatosplenomegaly, and findings compatible with hepatic steatosis; small hypodensity adjacent to gallbladder fossa possibly representing cyst or hemangioma, but nonspecific. Follow-up as indicated. Critical Test Results: Results were discussed with Dr. Hamilton in the ED on August, at 1912 hours. Report Dictated on Electronically Signed By: Sarath Zurita MD Electronically Signed Date/Time: 05/19/2023 7:15 PM EDT [facility] Radiology Study observation (narrative) [facility] CT Abdomen and Pelvis W cont rast IVOrdered By: Sarath Zurita on 05-19-2023 [facility] Work Phone: Comprehensive metabolic 1998 panelon 05-19-2023 Albumin [Mass/Vol] 3.9 g/dL 3.5 - 5.0 g/dL [facility] ALP [Catalytic activity/Vol] 61 U/L 38 - 126 U/L [facility] ALT [Catalytic activity/Vol] 33 U/L 0 - 34 U/L [facility] Anion gap [Moles/Vol] 11 mmol/L 3 - 13 mmol/L [facility] AST [Catalytic activity/Vol] 28 U/L 15 - 46 U/L [facility] Bilirubin [Mass/Vol] 0.8 mg/dL 0.2 - 1 .3 mg/dL [facility] Calcium [Mass/Vol] 9.1 mg/dL 8.4 - 10. 4 mg/dL [facility] Chloride [Moles/Vol] 104 mmol/L 98 - 10 7 mmol/L [facility] CO2 [Moles/Vol] 20 mmol/L Low 22 - 30 mmol/L [facility] Creatinine [Mass/Vol] 0.61 mg/dL 0.52 - 1.04 mg/dL [facility] GFR/1.73 sq M.predicted MDRD (S/P/Bld) [Vol rate/Area] - PINF [facility] Comment on above: Calculation based on the Chronic Kidney Disease Epidemiology Collaboration (CKD-EPI) equation refit without adjustment for race Glucose [Mass/Vol] 94 mg/dL 70 - 100 mg/dL [facility] Potassium [Moles/Vol] 3.9 mmol/L 3.5 - 5.1 mmol/L [facility] Protein [Mass/Vol] 7.5 g/dL 6.3 - 8.2 g/dL [facility] Sodium [Moles/Vol] 135 mmol/L 135 - 145 mmol/L [employer] Urea nitrogen [Mass/Vol] 4 mg/dL Low 7 - 17 mg/dL [facility] - Chemistry and C hemistry - challengeOrdered By: Rachael Castañeda on 05-19-2023 Beta HCG ( test) Ql Negative Negative [employer] Comment on above: Please note: Very di lute urine specimens, as indicated by a low specific gravity, may not contain customer care representative levels of hCG. If is still suspected, a first morning urine specimen should be collected 48 hours later and tested. Beta HCG ( test) Ql (U) is the most common reason for HCG in urine, although choriocarcinoma, hydatidiform mole, and certain nontrophoblastic malignancies also result in detectable urinary HCG levels. Sensitivity = 20mIU/mL. [facility] - Chemistry and C hemistry - challengeon 05-19-2023 Lipase [Catalytic activity/Vol] 493 U/L High 23 - 300 U/L [facility] Lactate [Moles/Vol] 0.7 mmol/L 0.7 - 2. 0 mmol/L [facility] No Panel InformationOrdered By: Weston Gunter on 05-19-2023 P Stanton 27 degrees [employer] Work Phone: UT Interval 134 ms [employer] Work Phone: QRS Stanton 1 degrees [employer] Work Phone: QRSD Interval 106 ms [employer] Work Phone: QT Interval 345 ms [employer] Work Phone: [phone] QTC Interval 441 ms [employer] Work Phone: T Wave Stanton -10 degrees [employer] Work Phone: [phone] [employer] Work Phone: No Panel Informationon 05-18 Sinus rhythm rate 98 , normal intervals and QRS duration. No acute ischemic changes. Borderline T abnormalities, inferior leads, similar to prior tracing. Electronically Signed On 05-19-2023 22:52:16 EDT by Weston Alvarado, - 05/19/2023 IMPRESSION: Sinus rhythm rate 98, normal intervals and QRS duration. No acute ischemic changes. Borderline T abnormalities, inferior leads, similar to prior tracing. Electronically Signed On 05-19-2023 22:52:16 EDT by Weston Gunter [facility] Interpretation and review of laboratory results Abnormal [facility] Interpretation and review of laboratory results Normal [facility] No Panel InformationOrdered By: Rachael Castañeda on 05-19-2023 [facility] Urinalysis complete panel (U )Ordered By: Gem Puentes on 05-19-2023 Amm Biurate Crystals, Urine Few Abnormal Negative /HPF [facility] Bacteria LM.HPF (Urine sed) [#/Area] Few Abnormal Negative /HPF [facility] Bilirubin Ql (U) Negative Negative mg/dL [facility] Calcium carbonate crystals LM.HPF (Urine sed) [#/Area] Many Abnormal Negative /HPF [facility] Clarity (U) Turbid Abnormal Clear [facility] Color (U) Light Yellow Lt. Yellow [facility] Epithelial cells.squamous LM.HPF (Urine sed) [#/Area] 0-2 [facility] h Glucose Ql (U) Normal Normal (<70) mg/dL [facility] Hemoglobin Ql (U) 0.03 mg/dL Abnormal Negative [facility] Interpretation and review of laboratory results Abnormal [facility] Ketones (U) [Mass/Vol] 150 mg/dL Abnormal Negative [facility] Leukocyte esterase Test strip Ql (U) Negative Negative Krish/uL [facility] Mucus LM.HPF (Urine sed) [#/Area] Few Negative /LPF [facility] Nitrite Ql (U) Negative Negative [facility] th pH (U) 6.0 [pH] 5.0 - 8.0 pH [facility] Protein (U) [Mass/Vol] 20 mg/dL Abnormal Negative [facility] RBC LM.HPF (Urine sed) [#/Area] 0-2 [facility] Specific gravity (U) [Rel density] 1.012 1.005 - 1.030 [facility] Urobilinogen (U) [Mass/Vol] Normal Normal (0-1) mg/dL [facility] WBC LM.HPF (Urine sed) [#/Area] 0-2 [facility] Vital signsOrdered By: Fletcher Gunter on 05-19-2023 Heart rate 98 /min bpm [facility] Work Phone: Basic metabolic 1998 panelon 05-11-2023 Anion gap [Moles/Vol] 12 mmol/L 3 - 13 mmol/L [facility] Calcium [Mass/Vol] 8.5 mg/dL 8.4 - 10. 4 mg/dL [facility] Chloride [Moles/Vol] 100 mmol/L 98 - 10 7 mmol/L [facility] CO2 [Moles/Vol] 22 mmol/L 22 - 30 mmol/L [facility] Creatinine [Mass/Vol] 0.52 mg/dL 0.52 - 1.04 mg/dL [facility] GFR/1.73 sq M.predicted MDRD (S/P/Bld) [Vol rate/Area] - PINF [facility] Comment on above: Calculation based on the Chronic Kidney Disease Epidemiology Collaboration (CKD-EPI) equation refit without adjustment for race Glucose [Mass/Vol] 164 mg/dL High 70 - 100 mg/dL [facility] Potassium [Moles/Vol] 4.9 mmol/L 3.5 - 5.1 mmol/L [facility] Sodium [Moles/Vol] 134 mmol/L Low 135 - 145 mmol/L [facility] Urea nitrogen [Mass/Vol] 10 mg/dL 7 - 17 mg/dL [facility] CBC panel Auto (Bld)Ordered By: [place] on 05-11-2023 Erythrocyte distribution width (RBC) [Ratio] 16.4 % High 11.5 - 15.0 % [facility] Hematocrit (Bld) [Volume fraction] 38.0 % 35.0 - 47.0 % [facility] Hemoglobin (Bld) [Mass/Vol] 11.4 g/dL Low 11.7 - 16.0 g/dL [facility] Interpretation and review of laboratory results Abnormal [facility] MCH (RBC) [Entitic mass] 21.6 pg Low 26.0 - 34.0 pg [facility] MCHC (RBC) [Mass/Vol] 30.0 % Low 30.5 - 36.0 % [facility] MCV (RBC) [Entitic vol] 72.1 fL Low 77.0 - 99.0 fL [facility] Platelet mean volume (Bld) [Entitic vol] 10.5 fL 9.0 - 12.7 fL [facility] Platelets (Bld) [#/Vol] 406 10*3/uL 140 - 440 10*3/uL [facility] RBC (Bld) [#/Vol] 5.27 10*6/uL High 3.80 - 5.2 0 10*6/uL [facility] WBC (Bld) [#/Vol] 15.4 10*3/uL High 3.6 - 10.7 10*3/uL [facility] Laboratory - Chemistry and C hemistry - challengeon 05-11-2023 CK [Catalytic activity/Vol] 454 U/L High 30 - 170 U/L [facility] No Panel Informationon 05-10 Interpretation and review of laboratory results Abnormal [facility] XR Abdomen and RF Gastrointe stinal tract upper W contrast Rex 05-11-2023 Gastric bypass post surgical changes. Marked narrowing at the gastrojejunostomy with initial delay in esophageal emptying. 20 minute delayed image demonstrates almost complete emptying of the gastric pouch without obstruction. No contrast leak. Report Dictated on Electronically Signed By: Denton Young MD Electronically Signed Date/Time: 05/11/2023 8:14 AM EDT [employer] Patient Name: ANNE MARIE BATES : 1995 Exam Date/Time: 05/11/2023 07:45 Procedure: FL UPPER GI WITH KUB Ordering Provider: CAMPBELL JOHN Reason For Exam: S/p bariatric procedure GASTROGRAFIN UPPER GI SERIES History: S/P gastric bypass, postop day one. Evaluate for leak. FLUOROSCOPY DOSE: Ka,r= 455.7 mGy FINDINGS: The exam was performed using Gastrografin orally in the upright position under fluoroscopic. The esophagus shows no evidence of perforation or contrast extravasation. Gastric bypass with subtotal gastrectomy and gastrojejunostomy noted. There is marked narrowing of the gastrojejunostomy with initial delayed emptying of the gastric pouch/distal esophagus. A 20 minute delayed image demonstrates almost complete emptying of the gastric pouch. There are no signs of extravasation. The jejunal jejunostomy shows free flow of contrast beyond the metallic clips that identify the anastomosis without obstruction, allowing for slightly distended jejunal segment. [facility] EM[facility] RADIOLOGY SYSTEM Denton Young MD - 05/11/2023 Patient Name: ANNE MARIE PETERSON : 1995 [facility]#: [id number] Exam Date/Time: 05/11/2023 07:45 Procedure: FL UPPER GI WITH KUB Ordering Provider: CAMPBELL JOHN Reason For Exam: S/p bariatric procedure GASTROGRAFIN UPPER GI SERIES History: S/P gastric bypass, postop day one. Evaluate for leak. FLUOROSCOPY DOSE: Ka,r= 455.7 mGy FINDINGS: The exam was performed using Gastrografin orally in the upright position under fluoroscopic. The esophagus shows no evidence of perforation or contrast extravasation. Gastric bypass with subtotal gastrectomy and gastrojejunostomy noted. There is marked narrowing of the gastrojejunostomy with initial delayed emptying of the gastric pouch/distal esophagus. A 20 minute delayed image demonstrates almost complete emptying of the gastric pouch. There are no signs of extravasation. The jejunal jejunostomy shows free flow of contrast beyond the metallic clips that identify the anastomosis without obstruction, allowing for slightly distended jejunal segment. IMPRESSION: Gastric bypass post surgical changes. Marked narrowing at the gastrojejunostomy with initial delay in esophageal emptying. 20 minute delayed image demonstrates almost complete emptying of the gastric pouch without obstruction. No contrast leak. Report Dictated on Electronically Signed By: Denton Young MD Electronically Signed Date/Time: 05/11/2023 8:14 AM EDT [facility] Radiology Study observation (narrative) [facility] XR Abdomen and RF Gastrointe stinal tract upper W contrast POOrdered By: Denton Young on 05-11-2023 [facility] Work Phone: Basic metabolic 1998 panelon 05-10-2023 Anion gap [Moles/Vol] 11 mmol/L 3 - 13 mmol/L [facility] Calcium [Mass/Vol] 8.4 mg/dL 8.4 - 10. 4 mg/dL [facility] Chloride [Moles/Vol] 100 mmol/L 98 - 10 7 mmol/L [facility] CO2 [Moles/Vol] 23 mmol/L 22 - 30 mmol/L [facility] Creatinine [Mass/Vol] 0.68 mg/dL 0.52 - 1.04 mg/dL [facility] GFR/1.73 sq M.predicted MDRD (S/P/Bld) [Vol rate/Area] - PINF [facility] Comment on above: Calculation based on the Chronic Kidney Disease Epidemiology Collaboration (CKD-EPI) equation refit without adjustment for race Glucose [Mass/Vol] 162 mg/dL High 70 - 100 mg/dL [facility] Potassium [Moles/Vol] 4.0 mmol/L 3.5 - 5.1 mmol/L [facility] Sodium [Moles/Vol] 135 mmol/L 135 - 145 mmol/L [facility] Urea nitrogen [Mass/Vol] 11 mg/dL 7 - 17 mg/dL [facility] CBC panel Auto (Bld)Ordered By: Farida Espinoza on 05-10-2023 Erythrocyte distribution width (RBC) [Ratio] 16.8 % High 11.5 - 15.0 % [facility] Hematocrit (Bld) [Volume fraction] 39.6 % 35.0 - 47.0 % [facility] Hemoglobin (Bld) [Mass/Vol] 12.0 g/dL 11.7 - 16.0 g/dL [facility] Interpretation and review of laboratory results Abnormal [facility] MCH (RBC) [Entitic mass] 22.2 pg Low 26.0 - 34.0 pg [facility] MCHC (RBC) [Mass/Vol] 30.3 % Low 30.5 - 36.0 % [facility] MCV (RBC) [Entitic vol] 73.3 fL Low 77.0 - 99.0 fL [facility] Platelet mean volume (Bld) [Entitic vol] 10.0 fL 9.0 - 12.7 fL [facility] Platelets (Bld) [#/Vol] 387 10*3/uL 140 - 440 10*3/uL [facility] RBC (Bld) [#/Vol] 5.40 10*6/uL High 3.80 - 5.2 0 10*6/uL [facility] WBC (Bld) [#/Vol] 20.2 10*3/uL High 3.6 - 10.7 10*3/uL [facility] HCG ( test) Ql (U)o n 05-10-2023 Beta HCG ( test) Ql (U) [id number] [facility] Interpretation and review of laboratory results Normal [facility] NEGATIVE QC Pass [facility] POSITIVE QC Pass [facility] Preg Test, Ur Negative [facility] Radiology Study observation (narrative) [facility] Laboratory - Chemistry and C hemistry - challengeon 05-10-2023 CK [Catalytic activity/Vol] 186 U/L High 30 - 170 U/L [facility] No Panel Informationon 05-09 Interpretation and review of laboratory results Abnormal [facility] US Heart TransthoracicOrdere d By: Eliazar Gates on 01-12-2023 Ascending [facility] 2.8 [facility] Work Phone: Ascending Aorta Index 1.06 cm/m2 [facility] Work Phone: [phone] AV Area by Peak Velocity 2.1 cm2 [facility] Work Phone: [phone] AV Area by VTI 2.3 cm2 [facility] Work Phone: [phone] AV Mean Gradient 6 mmHg [facility] Work Phone: [phone] AV Mean Velocity 1.2 m/s [facility] Work Phone: [phone] AV Peak Gradient 12 mmHg [facility] Work Phone: [phone] AV Peak Velocity 1.7 m/s [facility] Work Phone: [phone] AV Velocity Ratio 0.71 [facility] Work Phone: AV VTI 29.1 cm [facility] Work Phone: [phone] USAMA/BSA Peak Velocity 0.8 cm2/m2 [facility] Work Phone: USAMA/BSA VTI 0.9 cm2/m2 [facility] Work Phone: E/E' Septal 11.13 [facility] Work Phone: [phone] EF BP 65 % 55 - 100 % [facility] Work Phone: Fractional Shortening 2D 19 % 28 - 44 % [facility] Work Phone: Interpretation and review of laboratory results Abnormal [facility] Work Phone: IVC Diameter 1.7 cm [facility] Work Phone: IVSd 1.0 cm 0.6 - 0.9 cm [facility] Work Phone: [phone] LA Volume 2C 31 mL 22 - 52 mL [facility] Work Phone: LA Volume 4C 24 mL 22 - 52 mL [facility] Work Phone: [phone] LA Volume A/L 29 mL [facility] Work Phone: [phone] LA Volume Index 2C 12 mL/m2 16 - 34 mL/m2 [facility] Work Phone: [phone] LA Volume Index 4C 9 mL/m2 16 - 34 mL/m2 [facility] Work Phone: [phone] LA Volume Index A/L 11 mL/m2 16 - 34 mL/m2 [facility] Work Phone: [phone] LV E' Septal Velocity 8 cm/s [facility] Work Phone: [phone] LV EDV A2C 88 mL [facility] Work Phone: LV EDV A4C 139 mL [facility] Work Phone: LV EDV BP 116 mL 56 - 104 mL [facility] Work Phone: LV EDV Index A2C 33 mL/m2 [facility] Work Phone: LV EDV Index A4C 53 mL/m2 [facility] Work Phone: LV EDV Index BP 44 mL/m2 [facility] Work Phone: LV Ejection Fraction A2C 71 % [facility] Work Phone: LV Ejection Fraction A4C 53 % [facility] Work Phone: LV ESV A2C 25 mL [facility] Work Phone: LV ESV A4C 65 mL [facility] Work Phone: LV ESV BP 40 mL 19 - 49 mL [facility] Work Phone: LV ESV Index A2C 9 mL/m2 [facility] Work Phone: [phone] LV ESV Index A4C 25 mL/m2 [facility] Work Phone: [phone] LV ESV Index BP 15 mL/m2 [facility] Work Phone: [phone] LV Mass 2D 187.5 g Abnormal 67 - 162 g [facility] Work Phone: [phone] LV Mass 2D Index 71.0 g/m2 43 - 95 g/m2 [facility] Work Phone: [phone] LV RWT Ratio 0.51 [facility] Work Phone: [phone] LVIDd 4.7 cm 3.9 - 5.3 cm [facility] Work Phone: [phone] LVIDd Index 1.78 cm/m2 [facility] Work Phone: [phone] LVIDs 3.8 cm [facility] Work Phone: [phone] LVIDs Index 1.44 cm/m2 [facility] Work Phone: [phone] LVOT Area 3.1 cm2 [facility] Work Phone: [phone] LVOT Cardiac Output 6.7 liter/minute [facility] Work Phone: [phone] LVOT Diameter 2.0 cm [facility] [employer] Work Phone: [phone] LVOT Mean Gradient 3 mmHg [facility] Work Phone: [phone] LVOT Peak Gradient 6 mmHg [facility] Work Phone: [phone] LVOT Peak Velocity 1.2 m/s [facility] Work Phone: [phone] LVOT Stroke Volume Index 26.2 mL/m2 [facility] Work Phone: [phone] LVOT SV 69.1 ml [facility] Work Phone: [phone] LVOT VTI 22.0 cm [facility] Work Phone: [phone] LVOT:AV VTI Index 0.76 [facility] Work Phone: [phone] LVPWd 1.2 cm 0.6 - 0.9 cm [facility] Work Phone: [phone] MV A Velocity 0.82 m/s [facility] Work Phone: [phone] MV E Velocity 0.89 m/s [facility] Work Phone: [phone] MV E Wave Deceleration Time 208.9 ms [facility] Work Phone: [phone] MV E/A 1.09 [facility] Work Phone: [phone] PV Max Velocity 1.3 m/s [facility] Work Phone: [phone] PV Peak Gradient 7 mmHg [facility] Work Phone: [phone] RV Free Wall Peak S' 238 cm/s [facility] Work Phone: [phone] TAPSE 2.4 cm 1.7 cm [facility] Work Phone: [phone] TR Max Velocity 2.52 m/s [facility] Work Phone: [phone] TR Peak Gradient 25 mmHg [facility] Work Phone: [phone] [facility] Work Phone: [phone] Heart Transthoracicon Left Ventricle: Left ventricle size is normal. LVIDd is 4.7 cm. Mildly increased wall thickness. IVSd is 1.0 cm. LVPWd is 1.2 cm. Normal left ventricular systolic function. EF by 2D [employer] Biplane is 65%. Normal wall motion. Right Ventricle: Right ventricle size is normal. Normal systolic function. Interatrial Septum: Grade I Positive (1 to 9 bubbles). Agitated saline study was positive without provocation. Right to left shunt was noted. Aorta: Normal sized sinuses of Valsalva and ascending aorta. Pericardium: No pericardial effusion. No significant valvular abnormalities. Left Ventricle Left ventricle size is normal. LVIDd is 4.7 cm. Mildly increased wall thickness. IVSd is 1.0 cm. LVPWd is 1.2 cm. Normal left ventricular systolic function. EF by 2D [employer]plane is 65%. Normal wall motion. Normal diastolic function. Right Ventricle Right ventricle size is normal. Normal systolic function. Left Atrium Left atrium size is normal. Left atrium size is normal (LA volume index 16-34 mL/m2). Right Atrium Right atrium size is normal. IVC/SVC IVC diameter is normal and decreases greater than 50% during inspiration; therefore the estimated right atrial pressure is normal (~3 mmHg). Mitral Valve Valve structure is normal. No regurgitation. No stenosis noted. Tricuspid Valve Valve structure is normal. Trace regurgitation. Aortic Valve Trileaflet. No cusp thickening. No cusp calcification. No regurgitation. No stenosis. Pulmonic Valve Valve structure is normal. Trace regurgitation. Ascending Aorta Normal sized sinuses of Valsalva and ascending aorta. Pericardium No pericardial effusion. Septum Grade I Positive (1 to 9 bubbles). Agitated saline study was positive without provocation. Right to left shunt was noted. Study Details Image quality: adequate. Blood pressure: 125/80 mmHg. Technical qualifiers: Technically difficult study with poor endocardial visualization and technically difficult study due to patient's body habitus. Ultrasound enhancement agent was given to enhance imaging. Saline contrast was given to evaluate for intracardiac shunt. Echo Additional Conclusions No significant valvular abnormalities. CV CPACS 25-hydroxyvitamin D3 [Mass/V ol]on 12-14-2022 Interpretation and review of laboratory results Abnormal [facility] NoWait Therapy is based on measurement of Total 25-OHD with the following classification levels: Less than 20 ng/mL: Indicative of Vit D deficiency 20-30 ng/mL: Suggests Vit D insufficiency Optimal: Greater than or equal to 30 ng/mL Test performed by [employer] Competitive Immunoassay, measuring Total Vitamin D, not individual fractions. [facility] NoWait CBC panel Auto (Bld)Ordered By: Mildred Garcia on 12-14-2022 Erythrocyte distribution width (RBC) [Ratio] 17.2 % High 11.5 - 14.5 % [facility] NoWait Hematocrit (Bld) [Volume fraction] 38.1 % 35.0 - 47.0 % [facility] NoWait Hemoglobin (Bld) [Mass/Vol] 11.9 g/dL 11.7 - 16.0 g/dL [facility] Interpretation and review of laboratory results Abnormal [facility] MCH (RBC) [Entitic mass] 21.9 pg Low 26.0 - 34.0 pg [facility] MCHC (RBC) [Mass/Vol] 31.2 % Low 32.0 - 36.0 % [facility] NoWait MCV (RBC) [Entitic vol] 70.3 fL Low 80.0 - 98.0 fL [facility] NoWait Platelet mean volume (Bld) [Entitic vol] 8.7 fL 7.4 - 12.4 fL [facility] Platelets (Bld) [#/Vol] 380 10*3/uL 140 - 440 10*3/uL [facility] RBC (Bld) [#/Vol] 5.43 10*6/uL High 3.8 - 5.20 10*6/uL [facility] WBC (Bld) [#/Vol] 10.5 10*3/uL 3.6 - 10.7 10*3/uL [facility] Comprehensive metabolic 1998 panelon 12-14-2022 Albumin [Mass/Vol] 4.4 g/dL 3.5 - 5.0 g/dL [facility] ALP [Catalytic activity/Vol] 70 U/L 38 - 126 U/L [facility] ALT [Catalytic activity/Vol] 23 U/L 0 - 34 U/L [facility] Anion gap [Moles/Vol] 9 mmol/L 3 - 13 mmol/L [facility] AST [Catalytic activity/Vol] 23 U/L 15 - 46 U/L [facility] Bilirubin [Mass/Vol] 0.5 mg/dL 0.2 - 1 .3 mg/dL [facility] Calcium [Mass/Vol] 9.3 mg/dL 8.4 - 10. 4 mg/dL [facility] Chloride [Moles/Vol] 99 mmol/L 98 - 10 7 mmol/L [facility] CO2 [Moles/Vol] 29 mmol/L 22 - 30 mmol/L [facility] Creatinine [Mass/Vol] 0.65 mg/dL 0.52 - 1.04 mg/dL [facility] GFR/1.73 sq M.predicted MDRD (S/P/Bld) [Vol rate/Area] - PINF [facility] Comment on above: Calculation based on the Chronic Kidney Disease Epidemiology Collaboration (CKD-EPI) equation refit without adjustment for race Glucose [Mass/Vol] 86 mg/dL 70 - 100 mg/dL [facility] Potassium [Moles/Vol] 4.2 mmol/L 3.5 - 5.1 mmol/L [facility] Protein [Mass/Vol] 8.7 g/dL High 6.3 - 8.2 g/dL [facility] Sodium [Moles/Vol] 137 mmol/L 135 - 145 mmol/L [facility] Urea nitrogen [Mass/Vol] 13 mg/dL 7 - 17 mg/dL [facility] Ferritinon 12-14-2022 Ferritin [Mass/Vol] 14 ng/mL 6 - 137 ng/mL [facility] Ferritin [Mass/Vol]on 2022 Interpretation and review of laboratory results Normal [facility] Folateon 12-14-2022 Folate [Mass/Vol] 3.3 ng/mL 2.9 - PINF ng/mL [facility] Hemoglobin A1con 12-14-2022 Average glucose Estimated from glycated hemoglobin (Bld) [Mass/Vol] 120 mg/dL [facility] HbA1c (Bld) [Mass fraction] 5.8 % High NINF - 5.7 % [facility] Comment on above: Normal less than 5.7 % Prediabetes 5.7% to 6.4% Diabetes 6.5% or higher --HgbA1C levels may not be accurate in patients who have renal disease, received recent blood transfusions, are anemic, or who have dyshemoglobinemia. Interpretation and review of laboratory results Abnormal [facility] Iron and Iron binding capaci ty panelon 12-14-2022 Interpretation and review of laboratory results Abnormal [facility] Iron [Mass/Vol] 31 ug/dL Low 37 - 170 ug/dL [facility] Lipid 1996 panelon Cholesterol [Mass/Vol] 184 mg/dL NINF - 200 mg/dL [facility] Cholesterol in HDL [Mass/Vol] 30 mg/dL Low 40 - 60 mg/dL [facility] Cholesterol in LDL [Mass/Vol] 136 mg/dL High 0 - <100 [facility] Cholesterol.total/Gerardo sterol in HDL [Mass ratio] 6 {ratio} [facility] Comment on above: Ref Range: < 3 Low Risk for CHD 3-6 Mod Risk for CHD > 6 High Risk for CHD Triglyceride [Mass/Vol] 91 mg/dL NINF - 150 mg/dL [facility] Magnesiumon 12-14-2022 Magnesium [Mass/Vol] 2.0 mg/dL 1.6 - 2 .3 mg/dL [facility] Magnesium [Mass/Vol]on 12-14 Interpretation and review of laboratory results Normal [facility] No Panel Informationon 12-14 Interpretation and review of laboratory results Normal [facility] Interpretation and review of laboratory results Abnormal [facility] TSHon 12-14-2022 TSH Qn 3.605 m[IU]/L [facility] TSH Qnon 12-14-2022 Interpretation and review of laboratory results Normal [facility] Vitamin B12on 12-14-2022 Cobalamin (Vitamin B12) [Mass/Vol] 260 pg/mL 239 - 931 pg/mL [facility] Vitamin D Deficiency Screeni ng (Vit D 25)on 12-14-2022 25-hydroxyvitamin D3 [Mass/Vol] ng/mL Low 30 - 100 ng/mL [facility] Absolute lymphocyte countOrd ered By: Silviano Hymankristen on 09-03-2022 Lymphocytes Auto (Unsp spec) [#/Vol] 2.56 10*3/uL 0.83-4.51 [facility] Basophil percentageOrdered B y: Silviano Daley on 09-03-2022 Basophils/100 WBC (Bld) 0.5 % 0-1 [facility] Bilirubin [Mass/Vol] 0.60 mg/dL 0.20-1.00 [facility] Comment on above: For patients on eltr ombopag therapy, use of Dimension [place] TBIL is not recommended. Chloride [Moles/Vol] 104 mmol/L 98-107 [facility] Cholesterol [Mass/Vol] 157 mg/dL <200 [facility] Comment on above: <200 mg/dL Desirable 200-240 mg/dL Borderline >240 mg/dL High Risk Eosinophils/100 WBC (Bld) 1.6 % 0-5 [facility] Glucose [Mass/Vol] 95 mg/dL 74-106 [facility] Neutrophils (Bld) [#/Vol] 7.1 10*3/uL 2.0-7.7 [facility] Neutrophils/100 WBC (Bld) 67.8 % 47-70 [facility] Potassium [Moles/Vol] 4.0 mmol/L 3.5-5.1 [facility] Protein [Mass/Vol] 8.0 g/dL 6.4-8.2 [facility] Sodium [Moles/Vol] 137 mmol/L 136-145 [facility] Triglyceride [Mass/Vol] 83 mg/dL <199 [facility] Comment on above: The drugs N-Acetylcy steine and Metamizole may falsely depress this assay.Serum Triglycerides Reference Interval Normal <150 mg/dL Borderline high 150 - 199 mg/dL High 200 - 499 mg/dL Very High > or = 500 mg/dL WBC (Bld) [#/Vol] 10.5 10*3/uL 4.4-11.0 [facility] Blood erythrocytes count (nu mber/volume)Ordered By: Silviano Daley on 09-03-2022 RBC (Bld) [#/Vol] 5.37 10*6/uL 4.2-5.4 [facility] Blood hemoglobin measurement (mass/volume)Ordered By: Silviano Daley on 09-03-2022 Hemoglobin (Bld) [Mass/Vol] 11.5 g/dL 12.0-15.0 [facility] Blood lymphocytes/100 leukoc ytesOrdered By: Silviano Daley on 09-03-2022 Lymphocytes/100 WBC (Bld) 24.5 % 19-41 [facility] Blood monocytes/100 leukocyt esOrdered By: Silviano Daley on 09-03-2022 Monocytes/100 WBC (Bld) 5.0 % 0-10 [facility] Blood platelet mean volumeOr dered By: Silviano Daley on 09-03-2022 Platelet mean volume (Bld) [Entitic vol] 10.1 fL 6.2-12.0 [facility] Determination of erythrocyte mean corpuscular volume (MCV)Ordered By: Silviano Daley on 09-03-2022 MCV (RBC) [Entitic vol] 72.6 fL 81-99 [facility] Hematocrit Auto (Bld) [Volum e fraction]Ordered By: Silviano Daley on 09-03-2022 Hematocrit (Bld) [Volume fraction] 39.0 % 37-47 [facility] Laboratory - Chemistry and C hemistry - challengeOrdered By: Silviano Daley on 09-03-2022 ALP [Catalytic activity/Vol] 62 U/L 45-117 [facility] ALT [Catalytic activity/Vol] 20 U/L 13-56 [facility] CO2 [Moles/Vol] 26.0 mmol/L 21.0-32.0 [facility] Globulin (S) [Mass/Vol] 4.6 g/dL 2.2-4.2 [facility] Urea nitrogen/Creatinine [Mass ratio] 14.4 mg/mg 10-20 [facility] Laboratory - Hematology and Cell countsOrdered By: Silviano Daley on 09-03-2022 Erythrocyte distribution width (RBC) [Entitic vol] 45.6 fL 35.1-43.9 [facility] Erythrocyte distribution width (RBC) [Ratio] 18.0 % 11.6-14.6 [facility] Immature granulocytes/100 WBC (Bld) 0.600 % 0.0-0.9 [facility] Comment on above: IG% - Immature Granu locytes (promyelocytes, myelocytes and metamyelocytes) > 1% indicates that a LEFT SHIFT is Present. MCH (RBC) [Entitic mass] 21.4 pg 27.0-32.0 [facility] Nucleated RBC/100 WBC (Bld) [Ratio] 0 % 0-5 [facility] MCHC Auto (RBC) [Mass/Vol]Or dered By: Silviano Daley on 09-03-2022 MCHC (RBC) [Mass/Vol] 29.5 g/dL 32-36 [facility] No Panel InformationOrdered By: Silviano Daley on 09-03-2022 Estimated GFR (MDRD) Amer 117 mL/min >60 [facility] Comment on above: GFR Calc Estimated GFR (MDRD) Non-Af Amer 97 mL/min >60 [facility] Comment on above: Non- GFR Calc Free Triiodothyronine (T3) pg/dL 2.3 pg/mL 2.18-3.98 [facility] Thyroid Stimulating Hormone (TSH) 2.58 uIU/mL 0.358-3.74 [facility] Vitamin D 25-Hydroxy 24.4 ng/mL [facility] Comment on above: Vitamin D 25(OH) Sta tus Range Deficiency <20 ng/mL (50nmol/L) Insufficiency 20 - 30 ng/mL (50 - 75 nmol/L) Sufficiency 30 - 100 ng/mL (75 - 250 nmol/L) Toxicity >100 ng/mL (>250 nmol/L) Platelets bldOrdered By: Darrell Daley on 09-03-2022 Platelets (Bld) [#/Vol] 441 10*3/uL 150-450 [facility] Serum or plasma 17-hydroxypr ogesterone measurement (mass/volume)Ordered By: Silviano Daley on 09-03-2022 17-Hydroxyprogesterone [Mass/Vol] 11 ng/dL . [facility] Comment on above: Adult Female Follicu lar 15 - 70 Luteal 35 - 290Performed at: - [facility] [id number] Director: Ayo Burns MD, Phone: [phone] Serum or plasma albumin janette urement (mass/volume)Ordered By: Silviano Daley on 09-03-2022 Albumin [Mass/Vol] 3.4 g/dL 3.2-5.0 [facility] Serum or plasma albumin/glob ulin mass ratioOrdered By: Silviano Daley on 09-03-2022 Albumin/Globulin [Mass ratio] 0.7 {ratio} 0.9-2.4 [facility] Serum or plasma calcium janette urement (mass/volume)Ordered By: Silviano Daley on 09-03-2022 Calcium [Mass/Vol] 8.8 mg/dL 8.5-10.1 [facility] Serum or plasma cholesterol in HDL measurement (mass/volume)Ordered By: Silviano Daley on 09-03-2022 Cholesterol in HDL [Mass/Vol] 37 mg/dL >40 [facility] Comment on above: The drugs N-Acetylcy steine and Metamizole may falsely depress this assay. Reference Range HDL <40 mg/dL Low HDL Cholesterol HDL >or= 60 mg/dL High HDL Cholesterol Serum or plasma cholesterol in VLDL measurement (mass/volume)Ordered By: Silviano Daley on 09-03-2022 Cholesterol in VLDL [Mass/Vol] 17 mg/dL 5-40 [facility] Serum or plasma creatinine m easurement (mass/volume)Ordered By: Silviano Daley on 09-03-2022 Creatinine [Mass/Vol] 0.76 mg/dL 0.55-1.02 [facility] Comment on above: The validity of the calculated GFR & GFRAA in patients over 70 years has not been determined. Clinical correlation is essential. Serum or plasma low density lipoprotein (LDL) cholesterol measurement (mass/volume)Ordered By: Silviano Daley on 09-03-2022 Cholesterol in LDL [Mass/Vol] 103 mg/dL 0-130 [facility] Serum or plasma urea nitroge n measurement (mass/volume)Ordered By: Silviano Daley on 09-03-2022 Urea nitrogen [Mass/Vol] 11 mg/dL 7-18 [facility] Thin prep Papanicolaou smear with manual screeningOrdered By: Silviano Daley on 09-03-2022 Thin prep Papanicolaou smear with manual screening 13 U/L 15-37 [facility] Thin prep Papanicolaou smear with manual screening 7 5-15 [facility] Whole blood hemoglobin A1c/t otal hemoglobin ratio (mass fraction)Ordered By: Silviano Daley on 09-03-2022 HbA1c (Bld) [Mass fraction] 6.0 % 3.8-5.6 [facility] Comment on above: Normal < 5.7 % Predi abetic 5.7 - 6.4 % Diabetic >or= 6.5 % Please note range changes. Laboratory - Chemistry and C hemistry - challengeOrdered By: Dr. Díaz on 06-11-2022 HCG ( test) Ql (U) Negative [facility] Comment on above: Very dilute urine sp ecimens, as indicated by a low specificgravity, may not contain customer care representative levels of hCG. If is still suspected, a first morning urinespecimen should be collected 48 hours later and tested. Laboratory - Chemistry and C hemistry - challengeon 05-08-2022 HCG ( test) Ql (U) Negative [facility] Clostridium difficile detect ion by polymerase chain reactionOrdered By: Stephany Velez on 05-07-2022 C. difficile DNA FRANCE+probe Ql (Unsp spec) [facility] C. difficile DNA FRANCE+probe Ql (Unsp spec) [facility] EP PanelOrdered By: Stephany Velez on 05-07-2022 Gastrointestinal pathogens panel FRANCE+probe (Stl) [facility] No Panel InformationOrdered By: Stephany Velez on 03-16-2023 Stool Calprotectin 22 ug/g 0-120 [facility] Comment on above: Concentration Interp retation Follow-Up<16 - 50 ug/g Normal None>50 -120 ug/g Borderline Re-evaluate in 4-6 weeks >120 ug/g Abnormal Repeat as clinically indicatedPerformed at: [address] [id number] Director: Ayo Burns MD, Phone: [phone] Stool Clostridium difficile detectionOrdered By: Stephany Velez on 05-07-2022 C. difficile Ql (Stl) [facility] C. difficile Ql (Stl) [facility] Stool enteric pathogen panel by probe and target amplification methodOrdered By: Stephany Velez on 05-07-2022 Gastrointestinal pathogens panel FRANCE+probe (Stl) [facility] Stool lactoferrin detection by immunoassayOrdered By: Stephany Veelz on 05-07-2022 Lactoferrin IA Ql (Stl) [facility] Lactoferrin IA Ql (Stl) [facility] Absolute lymphocyte countOrd ered By: Stephany Velez on 04-29-2022 Lymphocytes Auto (Unsp spec) [#/Vol] 2.36 10*3/uL 0.83-4.51 [facility] Albumin Elph [Mass/Vol]Order ed By: Stephany Velez on 04-29-2022 Albumin [Mass/Vol] 3.3 g/dL 2.9-4.4 [facility] Atypical perinuclear antineu trophil cytoplasmic antibodies measurementOrdered By: Stephany Velez on 04-29-2022 Neutrophil cytoplasmic Ab.perinuclear.atypical IF (S) [Titer] <1:20 titer Neg:<1:20 [facility] Comment on above: The atypical pANCA p attern has been observed in asignificant percentage of patients with ulcerative colitis,primary sclerosing cholangitis and autoimmune hepatitis.Performed at: [address] [id number] Director: Xavier Salas PhD, Phone: [phone] at: [address] [id number] Director: Ayo Burns MD, Phone: [phone] Basophil percentageOrdered B y: Stephany Velez on 04-29-2022 Basophil percentage < 0.2 AI 0.0-0.9 [facility] Basophils/100 WBC (Bld) 0.2 % 0-1 [facility] Bilirubin [Mass/Vol] 0.40 mg/dL 0.20-1.00 [facility] Comment on above: For patients on eltr ombopag therapy, use of Dimension [place] TBIL is not recommended. Chloride [Moles/Vol] 107 mmol/L 98-107 [facility] Eosinophils/100 WBC (Bld) 1.7 % 0-5 [facility] Glucose [Mass/Vol] 93 mg/dL 74-106 [facility] LDH [Catalytic activity/Vol] 173 U/L 84-246 [facility] Neutrophils (Bld) [#/Vol] 6.2 10*3/uL 2.0-7.7 [facility] Neutrophils/100 WBC (Bld) 67.0 % 47-70 [facility] Potassium [Moles/Vol] 3.9 mmol/L 3.5-5.1 [facility] Protein [Mass/Vol] 7.8 g/dL 6.4-8.2 [facility] Sodium [Moles/Vol] 140 mmol/L 136-145 [facility] WBC (Bld) [#/Vol] 9.2 10*3/uL 4.4-11.0 [facility] Blood erythrocytes count (nu mber/volume)Ordered By: Stephany Velez on 04-29-2022 RBC (Bld) [#/Vol] 5.35 10*6/uL 4.2-5.4 [facility] Blood hemoglobin measurement (mass/volume)Ordered By: Stephany Velez on 04-29-2022 Hemoglobin (Bld) [Mass/Vol] 11.2 g/dL 12.0-15.0 [facility] Blood lymphocytes/100 leukoc ytesOrdered By: Stephany Velez on 04-29-2022 Lymphocytes/100 WBC (Bld) 25.6 % 19-41 [facility] Blood monocytes/100 leukocyt esOrdered By: Stephany Velez on 04-29-2022 Monocytes/100 WBC (Bld) 5.1 % 0-10 [facility] Blood platelet mean volumeOr dered By: Stephany Velez on 04-29-2022 Platelet mean volume (Bld) [Entitic vol] 10.4 fL 6.2-12.0 [facility] Determination of erythrocyte mean corpuscular volume (MCV)Ordered By: Stephany Velez on 04-29-2022 MCV (RBC) [Entitic vol] 72.3 fL 81-99 [facility] Erythrocyte sedimentation ra teOrdered By: Stephany Velez on 04-29-2022 ESR (Bld) [Velocity] 43 mm/h 0-30 [facility] Hematocrit Auto (Bld) [Volum e fraction]Ordered By: Stephany Velez on 04-29-2022 Hematocrit (Bld) [Volume fraction] 38.7 % 37-47 [facility] Interpretation of serum or p lasma protein pattern by immunofixation (narrative resultOrdered By: Stephany Velez on 04-29-2022 Protein Fractions Immunofixation Girish [Interp] See comment [facility] Comment on above: Result: Not Observed Laboratory - Chemistry and C hemistry - challengeOrdered By: Stephany Vleez on 04-29-2022 ALP [Catalytic activity/Vol] 60 U/L 45-117 [facility] ALT [Catalytic activity/Vol] 34 U/L 13-56 [facility] CO2 [Moles/Vol] 28.0 mmol/L 21.0-32.0 [facility] Urea nitrogen/Creatinine [Mass ratio] 14.5 mg/mg 10-20 [facility] Laboratory - Hematology and Cell countsOrdered By: Stephany Velez on 04-29-2022 Erythrocyte distribution width (RBC) [Entitic vol] 44.8 fL 35.1-43.9 [facility] Erythrocyte distribution width (RBC) [Ratio] 17.3 % 11.6-14.6 [facility] Immature granulocytes/100 WBC (Bld) 0.400 % 0.0-0.9 [facility] Comment on above: IG% - Immature Granu locytes (promyelocytes, myelocytes and metamyelocytes) > 1% indicates that a LEFT SHIFT is Present. MCH (RBC) [Entitic mass] 20.9 pg 27.0-32.0 [facility] Nucleated RBC/100 WBC (Bld) [Ratio] 0 % 0-5 [facility] MCHC Auto (RBC) [Mass/Vol]Or dered By: Stephany Velez on 04-29-2022 MCHC (RBC) [Mass/Vol] 28.9 g/dL 32-36 [facility] No Panel InformationOrdered By: Stephany Velez on 04-29-2022 Addendum Document Comment . [facility] Comment on above: Protein electrophore sis scan will follow via computer,mail, or medical affairs specialist delivery. Centromere B Antibody <0.2 AI 0.0-0.9 [facility] Endomysial IgA Antibody Negative Negative [facility] Estimated GFR (MDRD) Amer 132 mL/min >60 [facility] Comment on above: GFR Calc Estimated GFR (MDRD) Non-Af Amer 109 mL/min >60 [facility] Comment on above: Non- GFR Calc Immunoglobulin E 91 IU/mL 6-495 [facility] Miscellaneous Test See comment [facility] Comment on above: TEST RESULT LIMITSIB D Expanded PanelgASCA 17 units 0-50 Negative <45 Equivocal 45 - 50 Positive >50ACCA 18 units 0-90 Negative <80 Equivocal 80 - 90 Positive >90ALCA 4 units 0-60 Negative <55 Equivocal 55 - 60 Positive >60AMCA 26 units 0-100 Negative < 90 Equivocal 90 - 100 Positive >100 This test was developed and its performance characteristics determined by [employer]. It has not been cleared or approved by the Food and Drug Administration. The FDA has determined that such clearance or approval is not necessary.Atypical pANCA Negative NegativeCommentsPattern is not suggestive of Inflammatory Bowel Disease. ___ TESTING PERFORMED AT [facility]. ORIGINAL REPORT ON FILE IN LAB CONTAINS ADDITIONAL TEST SITE INFORMATION. [employer] Antibody 0.3 AI 0.0-0.9 [facility] Platelets bldOrdered By: Yari Velez on 04-29-2022 Platelets (Bld) [#/Vol] 456 10*3/uL 150-450 [facility] Serum DNA double strand anti body assay (units/volume)Ordered By: Stephany Velez on 04-29-2022 DNA double strand Ab Qn (S) [IU]/mL 0-9 [facility] Comment on above: Negative <5 Equivoca l 5 - 9 Positive >9 Serum Hollie-1 antibody assay (u nits/volume)Ordered By: Stephany Velez on 04-29-2022 Hollie-1 extractable nuclear Ab Qn (S) <0.2 AI 0.0-0.9 [facility] Serum Scl-70 extractable nuc lear antibody assay (units/volume)Ordered By: Stephany Velez on 04-29-2022 SCL-70 extractable nuclear Ab Qn (S) <0.2 AI 0.0-0.9 [facility] Serum Catalan extractable nucl ear antibody detectionOrdered By: Stephany Velez on 04-29-2022 Catalan extractable nuclear Ab Ql (S) <0.2 AI 0.0-0.9 [facility] Serum [id number] measu rement by electrophoresisOrdered By: Stephany Velez on 04-29-2022 Alpha 1 globulin Elph [Mass/Vol] 0.2 g/dL 0.0-0.4 [facility] Alpha 1 globulin Elph [Mass/Vol] 0.9 g/dL 0.4-1.0 [facility] Serum classic neutrophil cyt oplasmic antibody assay (units/volume)Ordered By: Stephany Velez on 04-29-2022 Neutrophil cytoplasmic Ab.classic Qn (S) Comment titer Neg:<1:20 [facility] Comment on above: Results are Indeterm inate. Serum globulin measurement ( mass/volume)Ordered By: Stephany Velez on 04-29-2022 Globulin (S) [Mass/Vol] 3.9 g/dL 2.2-3.9 [facility] Serum or plasma C reactive p rotein measurement (mass/volume)Ordered By: Stephany Velez on 04-29-2022 CRP [Mass/Vol] 25.60 mg/L 0.0-3.0 [facility] Comment on above: C-Reactive Protein ( CRP) provides useful information for thediagnosis, therapy and monitoring of inflammatory processesand associated diseases. For the evaluation of Relative Riskfor Cardiovascular Disease, a High Sensitivity CRP (HSCRP)should be ordered. Serum or plasma IgA measurem ent (mass/volume)Ordered By: Stephany Velez on 04-29-2022 IgA [Mass/Vol] 204 mg/dL 87-352 [facility] Serum or plasma IgG measurem ent (mass/volume)Ordered By: Stephany Velez on 04-29-2022 IgG [Mass/Vol] 1747 mg/dL [phone] [facility] Serum or plasma IgM measurem ent (mass/volume)Ordered By: Stephany Velez on 04-29-2022 IgM [Mass/Vol] 124 mg/dL 26-217 [facility] Serum or plasma albumin janette urement (mass/volume)Ordered By: Stephany Velez on 04-29-2022 Albumin [Mass/Vol] 3.4 g/dL 3.2-5.0 [facility] Serum or plasma albumin/glob ulin mass ratioOrdered By: Stephany Velez on 04-29-2022 Albumin/Globulin [Mass ratio] 0.8 {ratio} 0.9-2.4 [facility] Serum or plasma beta globuli n measurement by electrophoresis (mass/volume)Ordered By: Stephany Velez on 04-29-2022 Beta globulin Elph [Mass/Vol] 1.1 g/dL 0.7-1.3 [facility] Serum or plasma calcium janette urement (mass/volume)Ordered By: Stephany Velez on 04-29-2022 Calcium [Mass/Vol] 8.9 mg/dL 8.5-10.1 [facility] Serum or plasma choriogonado tropin detectionOrdered By: Dr. Daley on 04-29-2022 HCG ( test) Ql < 1 mIU/mL <4 [facility] Comment on above: hCG levels with Gest ational AgeGestational Age hCG mIU/mL (IU/L)0.2 - 1 week 5 - 501-2 weeks 50 - 5002-3 weeks 100 - 98176-0 weeks 500 - 306797-6 weeks 1000 - 088690-2 weeks 37842 - 100,0006-8 weeks 00764 - 200,0002-3 months 26806 - 100,000 Serum or plasma creatinine m easurement (mass/volume)Ordered By: Stephany Velez on 04-29-2022 Creatinine [Mass/Vol] 0.69 mg/dL 0.55-1.02 [facility] Comment on above: The validity of the calculated GFR & GFRAA in patients over 70 years has not been determined. Clinical correlation is essential. Serum or plasma gamma globul in measurement by electrophoresis (mass/volume)Ordered By: Stephany Velez on 04-29-2022 Gamma globulin Elph [Mass/Vol] 1.6 g/dL 0.4-1.8 [facility] Serum or plasma immunoelectr ophoresis interpretation (nominal result)Ordered By: Stpehany Velez on 04-29-2022 Interpretation IEP [Interp] Comment . [facility] Comment on above: No monoclonality det ected. Serum or plasma urea nitroge n measurement (mass/volume)Ordered By: Stephany Velez on 04-29-2022 Urea nitrogen [Mass/Vol] 10 mg/dL 7-18 [facility] Serum perinuclear neutrophil cytoplasmic antibody titer by immunofluorescenceOrdered By: Stephany Velez on 04-29-2022 Neutrophil cytoplasmic Ab.perinuclear IF (S) [Titer] <1:20 titer Neg:<1:20 [facility] Comment on above: The presence of posi tive fluorescence exhibiting P-ANCA orC-ANCA patterns alone is not specific for the diagnosis ofWegener's Granulomatosis (WG) or microscopic polyangiitis.Decisions about treatment should not be based solely onANCA IFA results. The [employer] ANCA [employer] Consensusrecommends follow up testing of positive sera with both UT-3 and MPO-ANCA enzyme immunoassays. As many as 5% serumsamples are positive only by EIA. Ref. AM J Clin Blikmh0863;111:507-513. Serum tissue transglutaminas e IgA antibody assay (units/volume)Ordered By: Stephany Velez on 04-29-2022 tTG IgA Qn (S) <2 U/mL 0-3 [facility] Comment on above: Negative 0 - 3 Weak Positive 4 - 10 Positive >10 Tissue Transglutaminase (tTG) has been identified as the endomysial antigen. Studies have demonstr- ated that endomysial IgA antibodies have over 99% specificity for gluten sensitive enteropathy. Thin prep Papanicolaou smear with manual screeningOrdered By: Stephany Velez on 04-29-2022 Thin prep Papanicolaou smear with manual screening 18 U/L 15-37 [facility] Thin prep Papanicolaou smear with manual screening 5 5-15 [facility] Thin prep Papanicolaou smear with manual screening 0.9 0.7-1.7 [facility] Total protein bloodOrdered B y: Stephany Velez on 04-29-2022 Protein [Mass/Vol] 7.2 g/dL 6.0-8.5 [facility] Serum or plasma choriogonado tropin detectionOrdered By: Dr. Daley on 04-13-2022 HCG ( test) Ql 128 mIU/mL <4 [facility] Comment on above: hCG levels with Gest ational AgeGestational Age hCG mIU/mL (IU/L)0.2 - 1 week 5 - 501-2 weeks 50 - 5002-3 weeks 100 - 08321-5 weeks 500 - 234171-0 weeks 1000 - 946490-1 weeks 86324 - 100,0006-8 weeks 95278 - 200,0002-3 months 58263 - 100,000 Serum or plasma choriogonado tropin detectionOrdered By: Lidya Booker on 04-08-2022 HCG ( test) Ql 267 mIU/mL <4 [facility] Comment on above: hCG levels with Gest ational AgeGestational Age hCG mIU/mL (IU/L)0.2 - 1 week 5 - 501-2 weeks 50 - 5002-3 weeks 100 - 65047-3 weeks 500 - 004828-5 weeks 1000 - 329488-8 weeks 22307 - 100,0006-8 weeks 97247 - 200,0002-3 months 35002 - 100,000 Serum or plasma choriogonado tropin detectionOrdered By: Lidya Booker on 04-06-2022 HCG ( test) Ql 91 mIU/mL <4 [facility] Comment on above: hCG levels with Gest ational AgeGestational Age hCG mIU/mL (IU/L)0.2 - 1 week 5 - 501-2 weeks 50 - 5002-3 weeks 100 - 31843-5 weeks 500 - 017667-9 weeks 1000 - 243047-2 weeks 58736 - 100,0006-8 weeks 49901 - 200,0002-3 months 52972 - 100,000 Chlamydia trachomatis rRNA d etection by probe and target amplification methodOrdered By: Lidya Booker on 03-11-2022 C. trachomatis rRNA FRANCE+probe Ql (Unsp spec) Negative Negative [facility] Dilute Isaac's viper venom timeOrdered By: Lidya Booker on 03-11-2022 dRVVT Coag (PPP) [Time] 36.8 s 0.0-47.0 [facility] Laboratory - Microbiology an d Antimicrobial susceptibilityOrdered By: Lidya Booker on 03-11-2022 N. gonorrhoeae DNA FRANCE+probe Ql (Unsp spec) Negative Negative [facility] Comment on above: Performed at: =[address] [id number] Director: Ese Pastor MD, Phone: [phone] No Panel Informationon 03-11 POC Trichomonas (Rapid) Negative [facility] No Panel InformationOrdered By: Lidya Booker on 03-11-2022 Anti-Cardiolipin IgM Antibody 14 MPL U/mL 0-12 [facility] Comment on above: Negative: <13 Indete rminate: 13 - 20 Low-Med Positive: >20 - 80 High Positive: >80 Thyroid Stimulating Hormone (TSH) 3.26 uIU/mL 0.358-3.74 [facility] Serum beta 2 glycoprotein 1 IgA antibody detectionOrdered By: Lidya Booker on 03-11-2022 Beta 2 glycoprotein 1 IgA Ql (S) <9 0-25 [facility] Comment on above: Result Units: GPI Ig A unitsThe reference interval reflects a 3SD or 99th percentileinterval, which is thought to represent a potentiallyclinically significant result in accordance with theInternational Consensus Statement on the classificationcriteria for definitive antiphospholipid syndrome (APS). JThromb Haem 2006;4:295-306. Serum beta 2 glycoprotein 1 IgG antibody detectionOrdered By: Lidya Booker on 03-11-2022 Beta 2 glycoprotein 1 IgG Ql (S) <9 0-20 [facility] Comment on above: Result Units: GPI Ig G unitsThe reference interval reflects a 3SD or 99th percentileinterval, which is thought to represent a potentiallyclinically significant result in accordance with theInternational Consensus Statement on the classificationcriteria for definitive antiphospholipid syndrome (APS). JThromb Haem 2006;4:295-306. Serum beta 2 glycoprotein 1 IgM antibody detectionOrdered By: Lidya Booker on 03-11-2022 Beta 2 glycoprotein 1 IgM Ql (S) <9 0-32 [facility] Comment on above: Result Units: GPI Ig M unitsThe reference interval reflects a 3SD or 99th percentileinterval, which is thought to represent a potentiallyclinically significant result in accordance with theInternational Consensus Statement on the classificationcriteria for definitive antiphospholipid syndrome (APS). JThromb Haem 2006;4:295-306.Performed at: [facility] [id number] Director: Ayo Burns MD, Phone: [phone] at: [facility] [id number] Director: Xavier Salas PhD, Phone: [phone] Serum cardiolipin IgG antibo dy assay by immunoassay (units/volume)Ordered By: Lidya Booker on 03-11-2022 Cardiolipin IgG IA Qn (S) < 9 GPL U/mL 0-14 [facility] Comment on above: Negative: <15 Indete rminate: 15 - 20 Low-Med Positive: >20 - 80 High Positive: >80 Serum or plasma cardiolipin IgA antibody assay (units/volume)Ordered By: Lidya Booker on 03-11-2022 Cardiolipin IgA Qn < 9 APL U/mL 0-11 [facility] Comment on above: Negative: <12 Indete rminate: 12 - 20 Low-Med Positive: >20 - 80 High Positive: >80 Thin prep Papanicolaou smear with manual screeningOrdered By: Lidya Booker on 03-11-2022 Thin prep Papanicolaou smear with manual screening 35.2 sec 0.0-47.6 [facility] Thin prep Papanicolaou smear with manual screening 1.02 Ratio 0.00-1.34 [facility] Thin prep Papanicolaou smear with manual screening 39.2 sec 0.0-51.9 [facility] Comment on above: Effective March 30, 2022 PTT-LA reference interval will be changing to: 0.0 - 43.5 sec Thin prep Papanicolaou smear with manual screening Comment: . [facility] Comment on above: No lupus anticoagula nt was detected. Thrombin time in platelet po or plasmaOrdered By: Lidya Booker on 03-11-2022 Thrombin time Coag (PPP) [Time] 15.7 sec 0.0-23.0 [facility] Serum or plasma choriogonado tropin detectionOrdered By: Lidya Booker on 03-03-2022 HCG ( test) Ql < 1 mIU/mL <4 [facility] Comment on above: hCG levels with Gest ational AgeGestational Age hCG mIU/mL (IU/L)0.2 - 1 week 5 - 501-2 weeks 50 - 5002-3 weeks 100 - 51963-4 weeks 500 - 128117-1 weeks 1000 - 483699-2 weeks 74044 - 100,0006-8 weeks 74552 - 200,0002-3 months 90502 - 100,000 Serum or plasma choriogonado tropin detectionOrdered By: Lidya Booker on 02-24-2022 HCG ( test) Ql 39 mIU/mL <4 [facility] Comment on above: hCG levels with Gest ational AgeGestational Age hCG mIU/mL (IU/L)0.2 - 1 week 5 - 501-2 weeks 50 - 5002-3 weeks 100 - 53357-1 weeks 500 - 779721-2 weeks 1000 - 082194-2 weeks 61115 - 100,0006-8 weeks 87690 - 200,0002-3 months 10868 - 100,000 Serum or plasma choriogonado tropin detectionOrdered By: Lidya Booker on 02-19-2022 HCG ( test) Ql 63 mIU/mL <4 [facility] Comment on above: hCG levels with Gest ational AgeGestational Age hCG mIU/mL (IU/L)0.2 - 1 week 5 - 501-2 weeks 50 - 5002-3 weeks 100 - 04169-1 weeks 500 - 528005-5 weeks 1000 - 316212-1 weeks 23860 - 100,0006-8 weeks 61116 - 200,0002-3 months 03820 - 100,000 CBC (INCLUDES DIFF/PLT)on Basophils (Bld) [#/Vol] 0.045 10*3/uL Normal 0-200 [facility] Comment on above: Performed By: #### 6 399 #### [facility]-[address], [address] [place] [address] Senior Sustainability Advisor: Sheng Park MD Basophils/100 WBC (Bld) 0.4 % Normal [facility] Comment on above: Performed By: #### 6 399 #### [facility]-[place] [address] Senior Sustainability Advisor: Sheng Park MD Eosinophils (Bld) [#/Vol] 0.192 10*3/uL Normal 15-500 [facility] Comment on above: Performed By: #### 6 399 #### [facility] [address] Senior Sustainability Advisor: Sheng Park MD Eosinophils/100 WBC (Bld) 1.7 % Normal [facility] Comment on above: Performed By: #### 6 399 #### [facility] [address] Senior Sustainability Advisor: Sheng Park MD Erythrocyte distribution width (RBC) [Ratio] 15.4 % High 11.0-15.0 [facility] Comment on above: Performed By: #### 6 399 #### [facility] [address] Senior Sustainability Advisor: Sheng Park MD Hematocrit (Bld) [Volume fraction] 38.5 % Normal 35.0-45.0 [facility] Comment on above: Performed By: #### 6 399 #### [facility] [address], [address] [place] [address] Senior Sustainability Advisor: Sheng Park MD Hemoglobin (Bld) [Mass/Vol] 12.1 g/dL Normal 11.7-15.5 [facility] Comment on above: Performed By: #### 6 399 #### [facility]-[address], [address] [place] [address] Senior Sustainability Advisor: Sheng Park MD Lymphocytes (Bld) [#/Vol] 2.949 10*3/uL Normal 850-3900 [facility] Comment on above: Performed By: #### 6 399 #### [facility] [address] Senior Sustainability Advisor: Sheng Park MD Lymphocytes/100 WBC (Bld) 26.1 % Normal [facility] Comment on above: Performed By: #### 6 399 #### [facility] [address] Senior Sustainability Advisor: Sheng Park MD MCH (RBC) [Entitic mass] 23.2 pg Low 27.0-33.0 [facility] Comment on above: Performed By: #### 6 399 #### [facility] [address] Senior Sustainability Advisor: Sheng Park MD MCHC (RBC) [Mass/Vol] 31.4 g/dL Low 32.0-36.[address] [facility] Comment on above: Performed By: #### 6 399 #### [facility] [address] [address] [place] [address] Senior Sustainability Advisor: Sheng Park MD MCV (RBC) [Entitic vol] 73.8 fL Low 80.0-100.0 [facility] Comment on above: Performed By: #### 6 399 #### [facility] [address], [address] [place] [address] Senior Sustainability Advisor: Sheng Park MD Monocytes (Bld) [#/Vol] 0.633 10*3/uL Normal 200-950 [facility] Comment on above: Performed By: #### 6 399 #### [facility]-[address], [address] [place] [address] Senior Sustainability Advisor: Sheng Park MD Monocytes/100 WBC (Bld) 5.6 % Normal [facility] Comment on above: Performed By: #### 6 399 #### [facility]-[address], [address] [place] [address] Senior Sustainability Advisor: Sheng Park MD Neutrophils (Bld) [#/Vol] 7.481 10*3/uL Normal 2414-0917 [facility] Comment on above: Performed By: #### 6 399 #### [facility]-[address], [address] [place] [address] Senior Sustainability Advisor: Sheng Park MD Neutrophils/100 WBC (Bld) 66.2 % Normal [facility] Comment on above: Performed By: #### 6 399 #### [facility]-[address], [address] [place] [address] Senior Sustainability Advisor: Sheng Park MD Platelet mean volume (Bld) [Entitic vol] 11.0 fL Normal 7.5-12.5 [facility] Comment on above: Performed By: #### 6 399 #### [facility]-[address], [address] [place] [address] Senior Sustainability Advisor: Sheng Park MD Platelets (Bld) [#/Vol] 454 10*3/uL High 140-400 [facility] Comment on above: Performed By: #### 6 399 #### [facility]-[address], [address] [place] [address] Senior Sustainability Advisor: Sheng Park MD RBC (Bld) [#/Vol] 5.22 10*6/uL High 3.80-5.10 [facility] Comment on above: Performed By: #### 6 399 #### [facility]-[address], [address] [place] [address] Senior Sustainability Advisor: Sheng Park MD WBC (Bld) [#/Vol] 11.3 10*3/uL High 3.8-10.8 [facility] Comment on above: Performed By: #### 6 399 #### [facility]-[address], [address] [place], [place] [id number] Senior Sustainability Advisor: Sheng Park MD VITAMIN D,25-OH,TOTAL,IAon 1 03-27-2019 VITAMIN D,25-OH,TOTAL,IA 18 ng/mL Low 30-100 [facility] Comment on above: Result Comment: Precious min D Status 25-OH Vitamin D: Deficiency: <20 ng/mL Insufficiency: 20 - 29 ng/mL Optimal: > or = 30 ng/mL For 25-OH Vitamin D testing on patients on D2-supplementation and patients for whom quantitation of D2 and D3 fractions is required, the QuestAssureD(TM) 25-OH VIT D, (D2,D3), LC/MS/MS is recommended: order code 32296 (patients >2yrs). See Note 1 Note 1 For additional information, please refer to http://education.Viewster/faq/OOK825 (This link is being provided for informational/ educational purposes only.) Performed By: #### 6 399 #### [facility]-[address], [address] [place] [address] Senior Sustainability Advisor: Sheng Park MD Free T3on 10-19-2019 Free T3 [Mass/Vol] 3.3 pg/mL Normal 2.3-4.1 [facility] Comment on above: Performed By: #### F REET3, MICRO #### [facility] Routine Lab [address] [place], [place] [address] Hemoglobin A1con 10-19-2019 HbA1c (Bld) [Mass fraction] 5.6 % Normal 4.3-5.6 [facility] Comment on above: Performed By: #### H BA1C #### [facility]ine Lab [address] [place], [place] [address] HbA1c (Bld) [Mass fraction] 114 mg/dL Normal [facility] Comment on above: Performed By: #### H BA1C #### [facility]ine Lab [address] [place], [place] [id number] PTH, Intacton 10-19-2019 PTH, Intact 34 pg/mL Normal 15-65 [facility] Comment on above: Performed By: #### P THI #### [facility] Routine Lab [address] [place], [place] [id number] TPO Antibodyon 10-19-2019 TPO Antibody <1.0 Normal <5.6 [facility] Comment on above: Performed By: #### F REET3, MICRO #### [facility] Routine Lab [address] [place], [place] [address] Vital Signs Date Time Vital Sign Value Performing Clinician Zina padilla 07-04-2024 11:50-0400 Body height 167.64 cm [employer] Work Phone: [facility] 07-04-2024 11:01-0400 Body mass index (BMI) [Ratio] 40.7 kg/m2 [employer] Work Phone: [facility] 07-04-2024 11:01-0400 Body weight 114.47 kg [employer] system Work Phone: [facility] 07-04-2024 11:01-0400 Diastolic blood pressure 89 mm[Hg] [employer] Work Phone: [facility] 07-04-2024 11:01-0400 Systolic blood pressure 143 mm[Hg] [employer] Work Phone: [facility] 06-28-2024 09:33-0400 Body height 167.64 cm [employer] system Work Phone: [facility] 06-28-2024 09:33-0400 Body mass index (BMI) [Ratio] 40.8 kg/m2 [employer] Work Phone: [facility] 06-28-2024 09:33-0400 Body weight 114.75 kg Xenia Clatonia PA-C Work Phone: [facility] 06-28-2024 09:22-0400 Diastolic blood pressure 76 mm[Hg] Xenia Clatonia PA-C Work Phone: [facility] 06-28-2024 09:22-0400 Heart rate 94 /min Xenia Clatonia PA-C Work Phone: [facility] 06-28-2024 09:22-0400 SaO2% (BldA) [Mass fraction] 98 % Xenia Clatonia PA-C Work Phone: [facility] 06-28-2024 09:22-0400 Systolic blood pressure 111 mm[Hg] Xenia Clatonia PA-C Work Phone: [facility] 06-28-2024 01:01-0400 Body temperature 98.1 [degF] Xenia Clatonia PA-C Work Phone: [facility] 06-28-2024 01:01-0400 Diastolic blood pressure 70 mm[Hg] Xenia Clatonia PA-C Work Phone: [facility] 06-28-2024 01:01-0400 Heart rate 68 /min Xenia Clatonia PA-C Work Phone: [facility] 06-28-2024 01:01-0400 Respiratory rate 16 /min Xenia Clatonia PA-C Work Phone: [facility] 06-28-2024 01:01-0400 SaO2% (BldA) [Mass fraction] 100 % Xenia Clatonia PA-C Work Phone: [facility] 06-28-2024 01:01-0400 Systolic blood pressure 118 mm[Hg] Xenia Clatonia PA-C Work Phone: [facility] 06-27-2024 23:01-0400 Body height 167.64 cm Xenia Clatonia PA-C Work Phone: [facility] 06-27-2024 23:01-0400 Body mass index (BMI) [Ratio] 41.1 kg/m2 [employer] [address] PA-C Work Phone: [facility] 06-27-2024 23:01-0400 Body weight 115.57 kg Xenia Clatonia PA-C Work Phone: [facility] 06-27-2024 14:31-0400 Body mass index (BMI) [Ratio] 40.8 kg/m2 Xenia Clatonia PA-C Work Phone: [facility] 06-27-2024 14:31-0400 Body weight 114.81 kg X[address] [employer] PA-C Work Phone: [facility] 06-27-2024 14:31-0400 Diastolic blood pressure 86 mm[Hg] Xenia Clatonia PA-C Work Phone: [facility] 06-27-2024 14:31-0400 Systolic blood pressure 123 mm[Hg] Xenia Clatonia PA-C Work Phone: [facility] 06-19-2024 08:43-0400 Body mass index (BMI) [Ratio] 40.4 kg/m2 Xenia Clatonia PA-C Work Phone: [facility] 06-19-2024 08:43-0400 Body weight 113.56 kg Xenia [employer] PA-C Work Phone: [facility] 06-19-2024 08:43-0400 Diastolic blood pressure 73 mm[Hg] Xenia Clatonia PA-C Work Phone: [facility] 06-19-2024 08:43-0400 Systolic blood pressure 117 mm[Hg] Xenia Clatonia PA-C Work Phone: [facility] 06-17-2024 00:26-0400 Heart rate 92 /min [employer] PA-C Work Phone: [facility] 06-17-2024 00:26-0400 Respiratory rate 16 /min Xenia Clatonia PA-C Work Phone: [facility] 06-17-2024 00:24-0400 Body temperature 98.3 [degF] [employer] PA-C Work Phone: [facility] 06-17-2024 00:24-0400 Diastolic blood pressure 92 mm[Hg] [employer] PA-C Work Phone: [facility] 06-17-2024 00:24-0400 SaO2% (BldA) [Mass fraction] 99 % [employer] PA-C Work Phone: [facility] 06-17-2024 00:24-0400 Systolic blood pressure 137 mm[Hg] [employer] PA-C Work Phone: [facility] 06-16-2024 22:26-0400 Body height 167.64 cm [employer] PA-C Work Phone: [facility] 06-16-2024 22:26-0400 Body mass index (BMI) [Ratio] 40.8 kg/m2 [employer] PA-C Work Phone: [facility] 06-16-2024 22:26-0400 Body weight 114.75 kg [employer] PA-C Work Phone: [facility] 05-29-2024 08:59-0400 Body height 167.64 cm [employer] PA-C Work Phone: [facility] 05-29-2024 08:58-0400 Body mass index (BMI) [Ratio] 41.2 kg/m2 [employer] PA-C Work Phone: [facility] 05-29-2024 08:58-0400 Body weight 115.89 kg [employer] PA-C Work Phone: [facility] 05-29-2024 08:58-0400 Diastolic blood pressure 77 mm[Hg] [employer] PA-C Work Phone: [facility] 05-29-2024 08:58-0400 Systolic blood pressure 126 mm[Hg] [employer] PA-C Work Phone: [facility] 05-11-2024 08:17-0400 Body height 165.7 cm Memo Campbell MD Work Phone: [facility] Comment on above: [facility] 05-11-2024 08:17-0400 Body mass index (BMI) [Ratio] 42.14 kg/m2 Memo Campbell MD Work Phone: [facility] 05-11-2024 08:17-0400 Body temperature 97.59 [degF] Memo Campbell MD Work Phone: [facility] 05-11-2024 08:17-0400 Body weight 115.76 kg Memo Campbell MD Work Phone: [facility] 05-11-2024 08:17-0400 Diastolic blood pressure 84 mm[Hg] Memo Campbell MD Work Phone: [facility] 05-11-2024 08:17-0400 Heart rate 80 /min Memo Campbell MD Work Phone: [facility] 05-11-2024 08:17-0400 Respiratory rate 16 /min Memo Campbell MD Work Phone: [facility] 05-11-2024 08:17-0400 Systolic blood pressure 126 mm[Hg] Memo Campbell MD Work Phone: [facility] 03-13-2024 13:15-0500 Body height 167.64 cm [employer] PA-C Work Phone: [facility] 03-13-2024 13:13-0500 Body mass index (BMI) [Ratio] 42.7 kg/m2 [employer] PA-C Work Phone: [facility] 03-13-2024 13:13-0500 Body weight 119.97 kg [employer] PA-C Work Phone: [facility] 03-13-2024 13:13-0500 Diastolic blood pressure 90 mm[Hg] [employer] PA-C Work Phone: [facility] 03-13-2024 13:13-0500 Systolic blood pressure 133 mm[Hg] [employer] PA-C Work Phone: [facility] 03-10-2024 17:34-0500 Body temperature 97.6 [degF] [employer] PA-C Work Phone: [facility] 03-10-2024 17:34-0500 Diastolic blood pressure 69 mm[Hg] [employer] PA-C Work Phone: [facility] 03-10-2024 17:34-0500 Heart rate 72 /min [employer] PA-C Work Phone: [facility] 03-10-2024 17:34-0500 Respiratory rate 15 /min [employer] PA-C Work Phone: [facility] 03-10-2024 17:34-0500 SaO2% (BldA) [Mass fraction] 98 % [employer] PA-C Work Phone: [facility] 03-10-2024 17:34-0500 Systolic blood pressure 131 mm[Hg] [employer] PA-C Work Phone: [facility] 03-10-2024 15:02-0500 Body mass index (BMI) [Ratio] 42.3 kg/m2 [employer] PA-C Work Phone: [facility] 03-10-2024 15:02-0500 Body weight 118.84 kg [employer] [address] PA-C Work Phone: [facility] 03-02-2024 09:02-0500 Body mass index (BMI) [Ratio] 43.7 kg/m2 [employer] PA-C Work Phone: [facility] 03-02-2024 09:02-0500 Body weight 122.98 kg [employer] PA-C Work Phone: [facility] 03-02-2024 09:02-0500 Diastolic blood pressure 86 mm[Hg] [employer] PA-C Work Phone: [facility] 03-02-2024 09:02-0500 Systolic blood pressure 156 mm[Hg] [employer] PA-C Work Phone: [facility] 02-11-2024 09:29-0500 Body height 165.1 cm Chely Garcia HAND SPINNER - PLANT ECOLOGIST Work Phone: [facility] 02-11-2024 09:29-0500 Body mass index (BMI) [Ratio] 45.76 kg/m2 Chely Garcia HAND SPINNER - PLANT ECOLOGIST Work Phone: [facility] 02-11-2024 09:29-0500 Body weight 124.74 kg Chely Garcia HAND SPINNER - PLANT ECOLOGIST Work Phone: [facility] 02-11-2024 09:29-0500 Diastolic blood pressure 88 mm[Hg] Chely Garcia HAND SPINNER - PLANT ECOLOGIST Work Phone: [facility] 02-11-2024 09:29-0500 Heart rate 76 /min Chely Garcia HAND SPINNER - PLANT ECOLOGIST Work Phone: [facility] 02-11-2024 09:29-0500 SaO2% (BldA) [Mass fraction] 96 % Chely Garcia HAND SPINNER - PLANT ECOLOGIST Work Phone: [facility] 02-11-2024 09:29-0500 Systolic blood pressure 120 mm[Hg] Chely Garcia HAND SPINNER - PLANT ECOLOGIST Work Phone: [facility] 11-15-2023 12:35-0400 Body height 165.7 cm Miley [employer] PA-C Work Phone: [facility] Comment on above: [facility] 11-15-2023 12:35-0400 Body mass index (BMI) [Ratio] 47.29 kg/m2 Miley Zupke PA-C Work Phone: [facility] 11-15-2023 12:35-0400 Body temperature 97.39 [degF] Miley Zupke PA-C Work Phone: [facility] 11-15-2023 12:35-0400 Body weight 129.91 kg Miley Zupke PA-C Work Phone: [facility] Comment on above: [facility] 11-15-2023 12:35-0400 Diastolic blood pressure 90 mm[Hg] Miley Zupke PA-C Work Phone: [facility] 11-15-2023 12:35-0400 Heart rate 94 /min Miley Zupke PA-C Work Phone: [facility] 11-15-2023 12:35-0400 Respiratory rate 16 /min Miley Zupke PA-C Work Phone: [facility] 11-15-2023 12:35-0400 Systolic blood pressure 133 mm[Hg] Miley Zupke PA-C Work Phone: [facility] 11-02-2023 06:53-0400 Body temperature 97.39 [degF] Rao Mudrakola DO Work Phone: [facility] 11-02-2023 06:53-0400 Diastolic blood pressure 92 mm[Hg] Rao Mudrakola DO Work Phone: [facility] 11-02-2023 06:53-0400 Heart rate 87 /min Rao Mudrakola DO Work Phone: [facility] 11-02-2023 06:53-0400 SaO2% (BldA) [Mass fraction] 96 % Rao Mudrakola DO Work Phone: [facility] 11-02-2023 06:53-0400 Systolic blood pressure 131 mm[Hg] Rao Mudrakola DO Work Phone: [facility] 11-01-2023 17:56-0400 Respiratory rate 18 /min Rao Marinrakola DO Work Phone: [facility] 10-28-2023 20:43-0400 Body height 167.6 cm Rao Marinrakola DO Work Phone: [facility] 10-28-2023 20:43-0400 Body mass index (BMI) [Ratio] 49.23 kg/m2 Rao Takola DO Work Phone: [facility] 10-28-2023 20:43-0400 Body weight 138.35 kg Rao Keyonkola DO Work Phone: [facility] 10-27-2023 19:37-0400 Body temperature 98.71 [degF] Fernando Gombash DO Work Phone: [facility] 10-27-2023 19:37-0400 Diastolic blood pressure 84 mm[Hg] Fernando Gombash DO Work Phone: [facility] 10-27-2023 19:37-0400 Heart rate 70 /min Fernando Gombash DO Work Phone: [facility] 10-27-2023 19:37-0400 Respiratory rate 16 /min Fernando Gombash DO Work Phone: [facility] 10-27-2023 19:37-0400 SaO2% (BldA) [Mass fraction] 97 % Fernando Gombash DO Work Phone: [facility] 10-27-2023 19:37-0400 Systolic blood pressure 136 mm[Hg] Fernando Gombash DO Work Phone: [facility] 10-26-2023 20:12-0400 Body height 167.6 cm Fernando Gombash DO Work Phone: [facility] 10-26-2023 20:12-0400 Body mass index (BMI) [Ratio] 49.23 kg/m2 Fernando Gombash DO Work Phone: [facility] 10-26-2023 20:12-0400 Body weight 138.35 kg Fernando Vallejo DO Work Phone: [facility] 08-23-2023 11:30-0400 Body height 167.6 cm Carmen Gerstenmaier PA-C Work Phone: [facility] 08-23-2023 11:30-0400 Body mass index (BMI) [Ratio] 52.97 kg/m2 Carmen Gerstenmaier PA-C Work Phone: [facility] 08-23-2023 11:30-0400 Body weight 148.87 kg Carmen Gerstenmaier PA-C Work Phone: [facility] 08-23-2023 11:30-0400 Diastolic blood pressure 72 mm[Hg] Camren Gerstenmaier PA-C Work Phone: [facility] 08-23-2023 11:30-0400 Heart rate 114 /min Carmen Gerstenmaier PA-C Work Phone: [facility] 08-23-2023 11:30-0400 Respiratory rate 18 /min Carmen Gerstenmaier PA-C Work Phone: [facility] 08-23-2023 11:30-0400 SaO2% (BldA) [Mass fraction] 96 % Carmen Gerstenmaier PA-C Work Phone: [facility] Comment on above: 08-23-2023 11:30-0400 Systolic blood pressure 126 mm[Hg] Carmen Gerstenmaier PA-C Work Phone: [facility] 08-23-2023 08:36-0400 Body height 167.6 cm Meet Stanislav WALLS Work Phone: [facility] 08-23-2023 08:36-0400 Body mass index (BMI) [Ratio] 52.84 kg/m2 Meet Stanislav WALLS Work Phone: [facility] 08-23-2023 08:36-0400 Body weight 148.51 kg Meet Stanislav WALLS Work Phone: [facility] 08-23-2023 08:36-0400 Diastolic blood pressure 92 mm[Hg] Meet Stanislav WALLS Work Phone: [facility] 08-23-2023 08:36-0400 Heart rate 73 /min Meet Stanislav WALLS Work Phone: [facility] 08-23-2023 08:36-0400 SaO2% (BldA) [Mass fraction] 98 % Meet Stanislav WALLS Work Phone: [facility] 08-23-2023 08:36-0400 Systolic blood pressure 122 mm[Hg] Meet Stanislav WALLS Work Phone: [employer] [facility] 08-11-2023 12:32-0400 Body height 165.7 cm Miley Zupke PA-C Work Phone: [facility] Comment on above: [facility] 08-11-2023 12:32-0400 Body mass index (BMI) [Ratio] 55.45 kg/m2 Miley Zupke PA-C Work Phone: [facility] 08-11-2023 12:32-0400 Body temperature 96.91 [degF] Miley Zupke PA-C Work Phone: [employer] [facility] 08-11-2023 12:32-0400 Body weight 152.32 kg Miley Zupke PA-C Work Phone: [employer] [facility] Comment on above: [facility] 08-11-2023 12:32-0400 Diastolic blood pressure 84 mm[Hg] Miley Zupke PA-C Work Phone: [employer] [facility] 08-11-2023 12:32-0400 Heart rate 101 /min Miley Zupke PA-C Work Phone: [employer] [facility] 08-11-2023 12:32-0400 Respiratory rate 18 /min Miley Zupke PA-C Work Phone: [facility] 08-11-2023 12:32-0400 Systolic blood pressure 114 mm[Hg] Miley Zupke PA-C Work Phone: [facility] 07-05-2023 13:11-0400 Body height 167.6 cm Ravi Abreu MD Work Phone: [employer] [facility] 07-05-2023 13:11-0400 Body mass index (BMI) [Ratio] 56.49 kg/m2 Ravi Abreu MD Work Phone: [facility] 07-05-2023 13:11-0400 Body weight 158.76 kg Ravi Abreu MD Work Phone: [employer] [facility] 07-05-2023 13:11-0400 Diastolic blood pressure 74 mm[Hg] Ravi Abreu MD Work Phone: [employer] [facility] 07-05-2023 13:11-0400 Heart rate 94 /min Ravi Abreu MD Work Phone: [employer] [facility] 07-05-2023 13:11-0400 Systolic blood pressure 100 mm[Hg] Ravi Abreu MD Work Phone: [facility] 06-17-2023 09:25-0400 Body height 165.7 cm Memo Campbell MD Work Phone: [employer] [facility] Comment on above: [facility] 06-17-2023 09:25-0400 Body mass index (BMI) [Ratio] 59.85 kg/m2 Memo Campbell MD Work Phone: [facility] 06-17-2023 09:25-0400 Body temperature 97.3 [degF] Memo Cmapbell MD Work Phone: [facility] 06-17-2023 09:25-0400 Body weight 164.38 kg Memo Campbell MD Work Phone: [employer] [facility] Comment on above: [facility] 06-17-2023 09:25-0400 Diastolic blood pressure 97 mm[Hg] Memo Campbell MD Work Phone: [employer] [facility] 06-17-2023 09:25-0400 Heart rate 114 /min eMmo Campbell MD Work Phone: [employer] [facility] 06-17-2023 09:25-0400 Respiratory rate 18 /min Memo Campbell MD Work Phone: [facility] 06-17-2023 09:25-0400 Systolic blood pressure 152 mm[Hg] Memo Campbell MD Work Phone: [facility] 06-11-2023 07:59-0400 Body temperature 96.01 [degF] Artemio Colorado MD Work Phone: [facility] 06-11-2023 07:59-0400 Diastolic blood pressure 78 mm[Hg] Artemio Colorado MD Work Phone: [facility] 06-11-2023 07:59-0400 Heart rate 77 /min Artemio Colorado MD Work Phone: [facility] 06-11-2023 07:59-0400 Respiratory rate 16 /min Artemio Colorado MD Work Phone: [facility] 06-11-2023 07:59-0400 SaO2% (BldA) [Mass fraction] 98 % Artemio Colorado MD Work Phone: [facility] 06-11-2023 07:59-0400 Systolic blood pressure 129 mm[Hg] Artemio Colorado MD Work Phone: [facility] 06-09-2023 09:43-0400 Body height 165.7 cm Artemio Colorado MD Work Phone: [facility] 06-07-2023 14:20-0400 Body mass index (BMI) [Ratio] 61.46 kg/m2 Artemio Colorado MD Work Phone: [facility] 06-07-2023 14:20-0400 Body weight 168.74 kg Artemio Colorado MD Work Phone: [facility] 05-27-2023 08:24-0400 Body height 165.7 cm Memo Campbell MD Work Phone: [facility] Comment on above: [facility] 05-27-2023 08:24-0400 Body mass index (BMI) [Ratio] 61.5 kg/m2 Memo Campbell MD Work Phone: [facility] 05-27-2023 08:24-0400 Body temperature 97.59 [degF] Memo Campbell MD Work Phone: [facility] 05-27-2023 08:24-0400 Body weight 168.92 kg Memo Campbell MD Work Phone: [facility] 05-27-2023 08:24-0400 Diastolic blood pressure 87 mm[Hg] Memo Campbell MD Work Phone: [facility] 05-27-2023 08:24-0400 Heart rate 111 /min Memo Campbell MD Work Phone: [facility] 05-27-2023 08:24-0400 Respiratory rate 16 /min Memo Campbell MD Work Phone: [facility] 05-27-2023 08:24-0400 SaO2% (BldA) [Mass fraction] 97 % Memo Campbell MD Work Phone: [facility] 05-27-2023 08:24-0400 Systolic blood pressure 141 mm[Hg] Memo Campbell MD Work Phone: [facility] 05-21-2023 08:24-0400 Body temperature 97.9 [degF] Shauna Joy DO Work Phone: [facility] 05-21-2023 08:24-0400 Diastolic blood pressure 67 mm[Hg] Shauna Joy DO Work Phone: [facility] 05-21-2023 08:24-0400 Heart rate 94 /min Shauna Joy DO Work Phone: [facility] 05-21-2023 08:24-0400 Respiratory rate 16 /min Shauna Joy DO Work Phone: [facility] 05-21-2023 08:24-0400 SaO2% (BldA) [Mass fraction] 98 % Shauna Joy DO Work Phone: [facility] 05-21-2023 08:24-0400 Systolic blood pressure 118 mm[Hg] Shauna Hamilton DO Work Phone: [facility] 05-19-2023 23:34-0400 Body height 165.9 cm Shauna Hamilton DO Work Phone: [facility] 05-19-2023 22:12-0400 Body mass index (BMI) [Ratio] 62.63 kg/m2 Shauna Hamilton DO Work Phone: [facility] 05-19-2023 22:12-0400 Body weight 172.37 kg Shaunaberta Hamilton DO Work Phone: [facility] 05-11-2023 13:09-0400 Body temperature 98.29 [degF] Memo Campbell MD Work Phone: [facility] 05-11-2023 13:09-0400 Diastolic blood pressure 93 mm[Hg] Memo Campbell MD Work Phone: [facility] 05-11-2023 13:09-0400 Heart rate 72 /min Memo Campbell MD Work Phone: [facility] 05-11-2023 13:09-0400 Respiratory rate 17 /min Memo Campbell MD Work Phone: [facility] 05-11-2023 13:09-0400 SaO2% (BldA) [Mass fraction] 92 % Memo Campbell MD Work Phone: [facility] 05-11-2023 13:09-0400 Systolic blood pressure 135 mm[Hg] Memo Campbell MD Work Phone: [facility] 05-10-2023 21:17-0400 Body height 167.6 cm Memo Campbell MD Work Phone: [facility] 05-10-2023 21:17-0400 Body mass index (BMI) [Ratio] 65.45 kg/m2 Memo Campbell MD [facility] Phone[facility] 05-10-2023 21:17-0400 Body weight 183.93 kg Memo Campbell MD Work Phone: [facility] 04-08-2023 09:30-0500 Body height 165.7 cm Memo Campbell MD Work Phone: [facility] Comment on above: [facility] 04-08-2023 09:30-0500 Body mass index (BMI) [Ratio] 66.55 kg/m2 Memo Campbell MD Work Phone: [facility] 04-08-2023 09:30-0500 Body temperature 97.9 [degF] Memo Campbell MD Work Phone: [facility] 04-08-2023 09:30-0500 Body weight 182.8 kg Memo Campbell MD Work Phone: [facility] 04-08-2023 09:30-0500 Diastolic blood pressure 88 mm[Hg] Memo Campbell MD Work Phone: [facility] 04-08-2023 09:30-0500 Heart rate 98 /min Memo Campbell MD Work Phone: [facility] 04-08-2023 09:30-0500 Respiratory rate 16 /min Memo Campbell MD Work Phone: [facility] 04-08-2023 09:30-0500 Systolic blood pressure 140 mm[Hg] Memo Campbell MD Work Phone: [facility] 02-05-2023 12:37-0500 Body height 165.7 cm Mary Dias MD Work Phone: [facility] 02-05-2023 12:37-0500 Body mass index (BMI) [Ratio] 65.1 kg/m2 Mary Dias MD Work Phone: [facility] 02-05-2023 12:37-0500 Body weight 178.81 kg Mary Dias MD Work Phone: [facility] 12-15-2023 12:37-0500 Diastolic blood pressure 85 mm[Hg] Mary Dias MD Work Phone: [facility] 02-05-2023 12:37-0500 Heart rate 95 /min Mary Dias MD Work Phone: [facility] 02-05-2023 12:37-0500 Systolic blood pressure 154 mm[Hg] Mary Dias MD Work Phone: [facility] 01-25-2023 10:11-0500 Body height 165.1 cm Carmen Gerstenmaier PA-C Work Phone: [facility] 01-25-2023 10:11-0500 Body mass index (BMI) [Ratio] 65.73 kg/m2 Carmen Gerstenmaier PA-C Work Phone: [facility] 01-25-2023 10:11-0500 Body weight 179.17 kg Carmen Gerstenmaier PA-C Work Phone: [facility] 01-25-2023 10:11-0500 Diastolic blood pressure 84 mm[Hg] Carmen Gerstenmaier PA-C Work Phone: [facility] 01-25-2023 10:11-0500 Heart rate 88 /min Carmen Gerstenmaier PA-C Work Phone: [facility] 01-25-2023 10:11-0500 SaO2% (BldA) [Mass fraction] 96 % Carmen Gerstenmaier PA-C Work Phone: [facility] 01-25-2023 10:11-0500 Systolic blood pressure 128 mm[Hg] Carmen Gerstenmaier PA-C Work Phone: [facility] 01-18-2023 09:25-0500 Body height 165.7 cm Mary Dias MD Work Phone: [facility] 01-18-2023 09:25-0500 Body mass index (BMI) [Ratio] 65.66 kg/m2 Mary Dias MD Work Phone: [facility] 01-18-2023 09:25-0500 Body weight 180.35 kg Mary Dias MD Work Phone: [employer] [facility] 01-18-2023 09:25-0500 Diastolic blood pressure 106 mm[Hg] Mary Dias MD Work Phone: [employer] [facility] Comment on above: has a headache 01-18-2023 09:25-0500 Heart rate 84 /min Mary Dias MD Work Phone: [facility] 01-18-2023 09:25-0500 Systolic blood pressure 148 mm[Hg] Mary Dias MD Work Phone: [employer] [facility] Comment on above: has a headache 01-12-2023 12:48-0500 Body height 165.1 cm Ravi Abreu MD Work Phone: [facility] 01-12-2023 12:48-0500 Body mass index (BMI) [Ratio] 65.57 kg/m2 Ravi Abreu MD Work Phone: [employer] [facility] 01-12-2023 12:48-0500 Body weight 178.72 kg Ravi Abreu MD Work Phone: [employer] [facility] 01-12-2023 08:26-0500 Diastolic blood pressure 93 mm[Hg] Memo Campbell MD Work Phone: [facility] 01-12-2023 08:26-0500 Heart rate 94 /min Memo Campbell MD Work Phone: [facility] 01-12-2023 08:26-0500 Respiratory rate 18 /min Memo Campbell MD Work Phone: [employer] [facility] 01-12-2023 08:26-0500 SaO2% (BldA) [Mass fraction] 98 % Memo Campbell MD Work Phone: [employer] [facility] 01-12-2023 08:26-0500 Systolic blood pressure 137 mm[Hg] Memo Campbell MD Work Phone: [facility] 01-12-2023 07:05-0500 Body height 165.1 cm Memo Campbell MD Work Phone: [facility] 01-12-2023 07:05-0500 Body mass index (BMI) [Ratio] 65.57 kg/m2 Memo Campbell MD Work Phone: [facility] 01-12-2023 07:05-0500 Body temperature 97 [degF] Memo Campbell MD Work Phone: [facility] 01-12-2023 07:05-0500 Body weight 178.72 kg Memo Campbell MD Work Phone: [facility] 01-08-2023 14:06-0500 Body height 165.1 cm Delphine Sanchez MD Work Phone: [facility] 01-08-2023 14:06-0500 Body mass index (BMI) [Ratio] 66.06 kg/m2 Delphine Sanchez MD Work Phone: [facility] 01-08-2023 14:06-0500 Body weight 180.08 kg Delphine Sanchez MD Work Phone: [facility] 01-08-2023 14:06-0500 Diastolic blood pressure 68 mm[Hg] Delphine Sanchez MD Work Phone: [facility] 01-08-2023 14:06-0500 Heart rate 100 /min Delphine Sanchez MD Work Phone: [facility] 01-08-2023 14:06-0500 Systolic blood pressure 134 mm[Hg] Delphine Sanchez MD Work Phone: [facility] 12-14-2022 09:07-0400 Body height 165.7 cm Mary Dias MD Work Phone: [facility] 12-14-2022 09:07-0400 Body mass index (BMI) [Ratio] 64.6 kg/m2 Mary Dias MD Work Phone: [facility] 12-14-2022 09:07-0400 Body weight 177.45 kg Mary Dias MD Work Phone: [facility] 12-14-2022 09:07-0400 Diastolic blood pressure 74 mm[Hg] Mary Dias MD Work Phone: [facility] 12-14-2022 09:07-0400 Heart rate 92 /min Mary Dias MD Work Phone: [facility] 12-14-2022 09:07-0400 Systolic blood pressure 118 mm[Hg] Mary Dias MD Work Phone: [facility] 11-02-2022 13:30-0400 Body height 165.7 cm Mary Dias MD Work Phone: [facility] 11-02-2022 13:30-0400 Body mass index (BMI) [Ratio] 64.4 kg/m2 Mary Dias MD Work Phone: [facility] 11-02-2022 13:30-0400 Body weight 176.9 kg Mary Dias MD Work Phone: [facility] 11-02-2022 13:30-0400 Diastolic blood pressure 88 mm[Hg] Mary Dias MD Work Phone: [facility] 11-02-2022 13:30-0400 Heart rate 94 /min Mary Dias MD Work Phone: [facility] 11-02-2022 13:30-0400 Systolic blood pressure 142 mm[Hg] Mary Dias MD Work Phone: [facility] 09-24-2022 07:57-0400 Body height 165.1 cm PA-C [employer] Work Phone: [facility] 09-24-2022 07:57-0400 Body mass index (BMI) [Ratio] 64 kg/m2 PA-C [employer] Work Phone: [facility] 09-24-2022 07:57-0400 Body temperature 97.6 [degF] PA-C [employer] Work Phone: [facility] 09-24-2022 07:57-0400 Body weight 174.63 kg PA-C [employer] Work Phone: [facility] 09-24-2022 07:57-0400 Diastolic blood pressure 88 mm[Hg] PA-C [employer] Work Phone: [facility] 09-24-2022 07:57-0400 Heart rate 89 /min PA-C [employer] Work Phone: [facility] 09-24-2022 07:57-0400 Respiratory rate 18 /min PA-C [employer] Work Phone: [facility] 09-24-2022 07:57-0400 SaO2% (BldA) [Mass fraction] 96 % PA-C [employer] Work Phone: [facility] 09-24-2022 07:57-0400 Systolic blood pressure 139 mm[Hg] PA-C [employer] Work Phone: [facility] 09-10-2022 12:41-0400 Body height 165.7 cm Memo Campbell MD Work Phone: [facility] 09-10-2022 12:41-0400 Body mass index (BMI) [Ratio] 63.28 kg/m2 Memo Campbell MD Work Phone: [facility] 09-10-2022 12:41-0400 Body temperature 97.5 [degF] Memo Campbell MD Work Phone: [facility] 09-10-2022 12:41-0400 Body weight 173.82 kg Memo Campbell MD Work Phone: [facility] 09-10-2022 12:41-0400 Diastolic blood pressure 71 mm[Hg] Memo Campbell MD Work Phone: [facility] 09-10-2022 12:41-0400 Heart rate 90 /min Memo Campbell MD Work Phone: [facility] 09-10-2022 12:41-0400 Respiratory rate 20 /min Memo Campbell MD Work Phone: [facility] 09-10-2022 12:41-0400 Systolic blood pressure 129 mm[Hg] Memo Campbell MD Work Phone: [facility] 09-03-2022 10:23-0400 Body height 165.1 cm PA-C [employer] Work Phone: [facility] 09-03-2022 10:23-0400 Body mass index (BMI) [Ratio] 64.5 kg/m2 PA-C Xenia [place] PA Work Phone: [facility] 09-03-2022 10:23-0400 Body weight 175.99 kg PA-C Xenia Cl[place] PA Work Phone: [facility] 09-03-2022 10:23-0400 Diastolic blood pressure 77 mm[Hg] PA-C Xenia Clatonia PA Work Phone: [facility] 09-03-2022 10:23-0400 Heart rate 90 /min PA-C Xenia Clatonia PA Work Phone: [facility] 09-03-2022 10:23-0400 Systolic blood pressure 146 mm[Hg] PA-C Xenia Clatonia PA Work Phone: [facility] 09-01-2022 16:30-0400 Body weight 173 kg PA-C Xenia Clatonia PA Work Phone: [facility] 07-27-2022 16:39-0400 Body height 167.64 cm PA-C Xenia Clatonia PA Work Phone: [facility] 07-27-2022 16:39-0400 Body weight 173.36 kg PA-C Xenia Clatonia PA Work Phone: [facility] 07-01-2022 15:52-0400 Body height 167.64 cm PA-C Xenia Clatonia PA Work Phone: [facility] 07-01-2022 15:52-0400 Body weight 174.9 kg PA-C Xenia Clatonia PA Work Phone: [facility] 06-29-2022 08:22-0400 Body mass index (BMI) [Ratio] 61.3 kg/m2 PA-C Xenia Clat[place] PA Work Phone: [facility] 06-29-2022 08:22-0400 Body weight 172.36 kg PA-C Xenia Clatonia PA Work Phone: [facility] 06-29-2022 08:22-0400 Diastolic blood pressure 87 mm[Hg] PA-C Xenia Clatonia PA Work Phone: [facility] 06-29-2022 08:22-0400 Heart rate 82 /min PA-C Xenia Clatonia PA Work Phone: [facility] 06-29-2022 08:22-0400 SaO2% (BldA) [Mass fraction] 96 % PA-C Xenia Clatonia PA Work Phone: [facility] 06-29-2022 08:22-0400 Systolic blood pressure 150 mm[Hg] PA-C Xenia Clatonia PA Work Phone: [facility] 06-18-2022 14:56-0400 Body mass index (BMI) [Ratio] 61.3 kg/m2 PA-C Xenia Clatonia PA Work Phone: [facility] 06-18-2022 14:56-0400 Body weight 172.47 kg PA-C Xenia Clatonia PA Work Phone: [facility] 06-18-2022 14:56-0400 Diastolic blood pressure 94 mm[Hg] PA-C Xenia Clatonia PA Work Phone: [facility] 06-18-2022 14:56-0400 Systolic blood pressure 136 mm[Hg] PA-C Xenia Clatonia PA Work Phone: [facility] 06-11-2022 11:40-0400 Body temperature 98.8 [degF] PA-C Xenia [employer] Work Phone: [facility] 06-11-2022 11:40-0400 Diastolic blood pressure 65 mm[Hg] PA-C Xenia Clatonia PA Work Phone: [facility] 06-11-2022 11:40-0400 Heart rate 95 /min PA-C Xenia [employer] Work Phone: [facility] 06-11-2022 11:40-0400 Respiratory rate 18 /min PA-C [employer] PA Work Phone: [facility] 06-11-2022 11:40-0400 SaO2% (BldA) [Mass fraction] 100 % PA-C [employer] PA Work Phone: [facility] 06-11-2022 11:40-0400 Systolic blood pressure 126 mm[Hg] PA-C [employer] PA Work Phone: [facility] 06-11-2022 09:42-0400 Body height 167.64 cm PA-C [employer] PA Work Phone: [facility] 06-11-2022 09:42-0400 Body mass index (BMI) [Ratio] 60.5 kg/m2 PA-C Xenia [employer] Work Phone: [facility] 06-11-2022 09:42-0400 Body weight 170 kg PA-C [employer] PA Work Phone: [facility] 06-03-2022 16:11-0400 Body weight 172.63 kg PA-C Xenia Clatonia PA Work Phone: [facility] 05-20-2022 10:10-0400 Body height 167.64 cm PA-C [employer] PA Work Phone: [facility] 05-20-2022 10:10-0400 Body weight 173.18 kg PA-C Xenia Clatonia PA Work Phone: [facility] 05-08-2022 14:53-0400 Body height 167.64 cm PA-C Xenia Clatonia PA Work Phone: [facility] 05-08-2022 14:52-0400 Body mass index (BMI) [Ratio] 61.7 kg/m2 PA-C Xenia Clatonia PA Work Phone: [facility] 05-08-2022 14:52-0400 Body weight 173.38 kg PA-C Xenia [employer] Work Phone: [facility] 05-08-2022 14:52-0400 Diastolic blood pressure 100 mm[Hg] PA-C Xenia Clatonia PA Work Phone: [facility] 05-08-2022 14:52-0400 Systolic blood pressure 122 mm[Hg] PA-C Xenia Clatonia PA Work Phone: [facility] 04-29-2022 08:10-0500 Body height 167.64 cm PA-C Xenia Clatonia PA Work Phone: [facility] 04-29-2022 08:10-0500 Body mass index (BMI) [Ratio] 61.4 kg/m2 PA-C Xenia Clatonia PA Work Phone: [facility] 04-29-2022 08:10-0500 Body weight 172.81 kg PA-C Xenia Clatonia PA Work Phone: [facility] 04-29-2022 08:10-0500 Diastolic blood pressure 93 mm[Hg] PA-C Xenia Clatonia PA Work Phone: [facility] 04-29-2022 08:10-0500 Heart rate 83 /min PA-C Xenia Clatonia PA Work Phone: [facility] 04-29-2022 08:10-0500 SaO2% (BldA) [Mass fraction] 97 % PA-C Xenia Clatonia PA Work Phone: [facility] 04-29-2022 08:10-0500 Systolic blood pressure 163 mm[Hg] PA-C Xenia Clatonia PA Work Phone: [facility] 04-13-2022 15:32-0500 Body height 167.64 cm PA-C Xenia Clatonia PA Work Phone: [facility] 04-13-2022 15:32-0500 Body mass index (BMI) [Ratio] 62.8 kg/m2 PA-C Xenia Clatonia PA Work Phone: [facility] 04-13-2022 15:32-0500 Body weight 176.67 kg PA-C Xenia Clatonia PA Work Phone: [facility] 04-13-2022 15:32-0500 Diastolic blood pressure 90 mm[Hg] PA-C Xenia Clatonia PA Work Phone: [facility] 04-13-2022 15:32-0500 Systolic blood pressure 130 mm[Hg] PA-C Xenia Clatonia PA Work Phone: [facility] 03-11-2022 14:32-0500 Body height 167.64 cm PA-C Xenia Clatonia PA Work Phone: [facility] 03-11-2022 14:19-0500 Body mass index (BMI) [Ratio] 61.4 kg/m2 PA-C Xenia Clatonia PA Work Phone: [facility] 03-11-2022 14:19-0500 Body weight 172.59 kg PA-C Xenia Clatonia PA Work Phone: [facility] 03-11-2022 14:19-0500 Diastolic blood pressure 84 mm[Hg] PA-C Xenia Clatonia PA Work Phone: [facility] 03-11-2022 14:19-0500 Systolic blood pressure 126 mm[Hg] PA-C Xenia Clatonia PA Work Phone: [facility] Encounters Encounter Date Encounter Type Care Provider Facility Start: 07-29-2024 ambulatory Peggy Flynn Fa cility:[facility] Start: 07-19-2024 End: 07-19-2024 Subsequent hospital visit by physician Vidya Ott DO Work Phone: [facility] Comment on above: Recurrent loss without current Start: 07-19-2024 End: 07-19-2024 ambulatory VIDYA [facility] Start: 07-19-2024 End: 07-19-2024 ambulatory [facility] Start: 07-04-2024 End: 07-04-[address] Silviano Daley MD -[facility] Work Phone: Start: 07-04-2024 End: 07-04-2024 ambulatory [facility] PA-C Work Phone: [facility] Work Phone: Start: 07-04-2024 End: 07-04-2024 ambulatory Silviano Daley Facility:[facility] Start: 06-29-2024 End: 06-29-2024 Emergency department patient visit [facility] Start: 06-29-2024 ambulatory Silviano Daley Faci lity:[facility] Start: 06-29-2024 Non-patient / Non-visit Dr. Pat Daley MD -[facility] Start: 06-28-2024 End: 06-28-2024 ambulatory [facility] PA-C Work Phone: [facility] Work Phone: Start: 06-28-2024 End: 06-28-[address] Silviano Daley MD -[facility] Work Phone: Start: 06-27-2024 End: 06-28-2024 [facility] department [facility] PA[facility]C Work Phone: -Emergency Department Work Phone: Start: 06-27-2024 End: 06-27-2024 Patient encounter procedure Christy Whitten CNM -[facility] Work Phone: Start: 06-27-2024 End: 06-27-2024 ambulatory Christy Whitten Facility:[facility] Start: 06-19-2024 End: 06-19-[address] Peggy Flynn DO -[facility] Work Phone: Start: 06-19-2024 End: 06-19-2024 ambulatory Peggy Flynn Facility:[facility] Start: 06-16-2024 End: 06-17-2024 Emergency department [facility] PA[facility]C Work Phone: -Emergency Department Work Phone: Start: 06-13-2024 End: 06-13-2024 ambulatory [facility] Start: 05-29-2024 End: 05-29-[address] Peggy Flynn DO [facility] Work Phone: Start: 05-29-2024 End: 05-29-2024 ambulatory [facility] PA-C Work Phone: [facility] Work Phone: Start: 05-29-2024 End: 05-29-2024 ambulatory Peggy Flynn Facility:[facility] Start: 05-26-2024 End: 05-26-2024 Telephone encounter Andreea Webster RD [facility] [place] Start: 05-25-2024 End: 05-25-2024 ambulatory [facility] PA-C Work Phone: [facility] Work Phone: Start: 05-25-2024 End: 05-25-[address] Peggy Flynn DO [facility] Work Phone: Start: 05-25-2024 End: 05-25-2024 ambulatory Peggy Flynn Facility:[facility] Start: 05-12-2024 End: 05-12-2024 Telephone encounter Andreea Webster RD [facility] [place] Comment on above: Abnormal Lab (Vitami n D, Iron, B12) Start: 05-11-2024 End: 05-11-2024 ambulatory [facility] Start: 05-11-2024 End: 05-11-2024 Office outpatient visit 25 minutes Memo Campbell MD Work Phone: [facility] - [place] Comment on above: Intestinal malabsorp tion, unspecified type (Primary Dx); Deficiency of multiple nutrient elements; History of gastric bypass; MOE on CPAP; Low zinc level; Low vitamin D level Start: 05-11-2024 End: 05-11-2024 ambulatory [facility] Start: 05-09-2024 End: 05-09-2024 ambulatory [facility] PA-C Work Phone: [facility] Work Phone: Start: 05-09-2024 End: 05-09-[address] Peggy Flynn DO -Ultrasound, [facility] Work Phone: Start: 05-09-2024 End: 05-09-2024 ambulatory Peggy Flynn Facility:[facility] Start: 05-05-2024 End: 05-05-2024 ambulatory [facility] PA-C Work Phone: [facility] Work Phone: Start: 05-05-2024 End: 05-05-[address] Peggy Flynn DO -Laboratory Work Phone: Start: 05-05-2024 End: 05-05-2024 ambulatory Peggy Flynn Facility:[facility] Start: 05-02-2024 End: 05-02-2024 ambulatory [facility] PA-C Work Phone: [facility] Work Phone: Start: 05-02-2024 End: 05-02-[address] Peggy Flynn DO -Laboratory Work Phone: Start: 05-01-2024 End: 05-02-2024 ambulatory Surveypal PA-C Work Phone: [facility] Work Phone: Start: 05-01-2024 End: 05-01-2024 Patient encounter procedure Lidya Booker SPONGE CLIPPER-C -Ultrasound, [facility] Work Phone: Start: 05-01-2024 End: 05-01-2024 ambulatory Lidya Booker Facility:[facility] Start: 04-21-2024 End: 04-21-2024 Patient encounter procedure Laurence Mccrary PA -Laboratory Work Phone: Start: 04-21-2024 End: 04-21-2024 ambulatory Surveypal PA-C Work Phone: [facility] Work Phone: Start: 04-20-2024 End: 04-21-2024 ambulatory Surveypal PA-C Work Phone: [facility] Work Phone: Start: 04-20-2024 End: 04-20-[address] Peggy Flynn DO -Laboratory Work Phone: Start: 04-20-2024 End: 04-20-2024 ambulatory Peggy Flynn Facility:[facility] Start: 04-18-2024 End: 04-18-2024 ambulatory Surveypal PA-C Work Phone: [facility] Work Phone: Start: 04-18-2024 End: 04-18-[address] Peggy Flynn DO -Laboratory Work Phone: Start: 04-18-2024 End: 04-18-2024 ambulatory Peggy Flynn Facility:[facility] Start: 04-07-2024 End: 04-07-[address] [facility] Start: 03-31-2024 End: 03-31-[address] [facility] Start: 03-24-2024 End: 03-24-[address] [facility] Start: 03-17-2024 End: 03-17-2024 ambulatory [facility] Start: 03-15-2024 End: 03-15-2024 ambulatory [facility] Start: 03-13-2024 End: 03-13-2024 ambulatory Peggy Flynn Facility:[facility] Start: 03-13-2024 End: 03-13-[address] Peggy Flynn DO -[facility] Work Phone: Start: 03-13-2024 End: 03-13-2024 ambulatory Peggy Flynn Facility:[facility] Start: 03-10-2024 End: 03-10-2024 Emergency department patient visit Dr. Fernando Al DO -Emergency Department Work Phone: Start: 03-09-2024 End: 03-09-[address] Peggy Flynn DO -Laboratory Work Phone: Start: 03-09-2024 End: 03-09-2024 ambulatory Peggy Flynn Facility:[facility] Start: 03-03-2024 End: 03-03-[address] Peggy Flynn DO -Laboratory Work Phone: Start: 03-02-2024 End: 03-02-[address] Peggy Flynn DO -[facility] Work Phone: Start: 03-02-2024 End: 03-03-2024 ambulatory Peggy Flynn Facility:[facility] Start: 03-02-2024 End: 03-02-2024 Patient encounter procedure Laurence Escoto [facility] Work Phone: Start: 03-02-2024 End: 03-02-2024 ambulatory Laurence Mccrary Facility:[facility] Start: 03-01-2024 End: 03-01-[address] Silviano Daley MD -Laboratory Work Phone: Start: 03-01-2024 End: 03-01-2024 ambulatory Silviano Daley Facility:[facility] Start: 02-28-2024 End: 02-28-[address] Silviano Daley MD -Laboratory Work Phone: Start: 02-28-2024 End: 02-28-2024 ambulatory Silviano Daley Facility:[facility] Start: 02-20-2024 End: 02-20-2024 Emergency department patient visit [facility] Start: 02-11-2024 End: 02-11-2024 Office outpatient visit 25 minutes Chely Garcia APRN - [employer] Work Phone: [facility] Cardiology - [place] Comment on above: Paroxysmal atrial fi brillation (HCC) (Primary Dx); Primary hypertension; MOE on CPAP Start: 02-11-2024 End: 02-11-2024 ambulatory [facility] Start: 12-22-2023 End: 12-22-2023 ambulatory Laurence Mccrary Facility:[facility] Start: 12-17-2023 End: 12-17-2023 ambulatory Silviano Hymankristen Facility:[facility] Start: 12-17-2023 End: 12-17-2023 ambulatory Silviano Daley Facility:[facility] Start: 11-25-2023 ambulatory Laurence Mccrary Facili ty:[facility] Start: 11-25-2023 End: 11-25-2023 ambulatory Laurence Mccrary Facility:[facility] Start: 11-15-2023 End: 11-15-2023 Office outpatient visit 25 minutes Miley Moise PA-C Work Phone: [facility] [place] Comment on above: Intestinal malabsorp tion, unspecified type (Primary Dx); Deficiency of multiple nutrient elements; History of gastric bypass; Back pain, unspecified back location, unspecified back pain laterality, unspecified chronicity; Primary hypertension; MOE on CPAP; Morbid obesity with BMI of 45.0-49.9, adult (HCC); Elevated LFTs; Intertrigo Start: 11-15-2023 End: 11-15-2023 ambulatory [facility] Start: 11-11-2023 End: 11-11-2023 ambulatory [facility] Facility[facility] Start: 11-10-2023 End: 11-11-2023 ambulatory [facility] Facility:[facility] Start: 11-09-2023 End: 11-10-2023 ambulatory [facility] Start: 11-08-2023 End: 11-08-2023 Telephone encounter Kimberley Frank RD Work Phone: [facility] [place] Comment on above: Results Start: 11-05-2023 End: 11-05-2023 Telephone encounter Carmen Purdy MD Work Phone: [facility] Gastroenterology [place] Comment on above: Care Coordination Start: 10-28-2023 End: 11-01-2023 ambulatory [facility] Start: 10-28-2023 End: 11-01-2023 Patient encounter procedure [facility] Start: 10-28-2023 End: 11-02-2023 Evaluation and management of inpatient Rao Mcdonough DO Work Phone: [facility] Oncology Medical Uni 7E Comment on above: Transaminitis (Prima ry Dx); Hx of gastric bypass; Hyperbilirubinemia Start: 10-26-2023 End: 10-27-2023 Evaluation and management of inpatient Fernando Vallejo DO Work Phone: [facility] Clinical Decision Unit CDU Comment on above: Transaminitis (Prima ry Dx); Elevated alkaline phosphatase level; Intractable nausea; Anorexia Start: 10-25-2023 End: 10-25-2023 Emergency department patient visit [facility] Start: 10-24-2023 End: 10-24-2023 Emergency department patient visit [facility] Start: 10-22-2023 End: 10-22-2023 ambulatory [facility] Start: 10-19-2023 End: 10-19-2023 ambulatory Laurence Mccrary Facility:[facility] Start: 09-20-2023 End: 12-20-2023 Transcribe Orders Carmen BRISENO-Manoj Work Phone: [facility] - [place] Comment on above: Obstructive sleep ap aura (adult) (pediatric) (Primary Dx) Start: 09-13-2023 End: 09-13-2023 ambulatory Carmen BRISENO-C Work Phone: [facility] Comment on above: MOE (obstructive sle ep apnea) Start: 08-23-2023 End: 08-23-2023 Office outpatient visit 15 minutes Carmen BRISENO-C Work Phone: [facility] Pulmonary [facility] Sleep Medicine Comment on above: MOE (obstructive sle ep apnea) (Primary Dx); Class 3 severe obesity due to excess calories with serious comorbidity and body mass index (BMI) of 50.0 to 59.9 in adult (HCC) Start: 08-23-2023 End: 08-23-2023 ambulatory [facility] Start: 08-23-2023 End: 08-23-2023 Office outpatient new 45 minutes Abdoul Colorado MD Work Phone: [facility] Cardiology Comment on above: Paroxysmal atrial fi brillation (HCC) (Primary Dx) Start: 08-23-2023 End: 08-23-2023 ambulatory [facility] Start: 08-11-2023 End: 08-11-2023 Office outpatient visit 25 minutes Miley BRISENO-C Work Phone: [facility] [place] Comment on above: Intestinal malabsorp tion, unspecified type (Primary Dx); Deficiency of multiple nutrient elements; MOE on CPAP; Primary hypertension; Morbid obesity with BMI of 50.0-59.9, adult (HCC); History of Sandra-en-Y gastric bypass; Lightheadedness Start: 08-11-2023 End: 08-11-2023 [facility] Start: 08-11-2023 End: 08-11-2023 [facility] Start: 08-10-2023 End: 08-10-2023 ambulatory [facility] Start: 08-10-2023 End: 08-10-2023 Emergency department patient visit [facility] Start: 07-05-2023 End: 07-05-2023 [facility] Start: 07-05-2023 End: 07-05-2023 Office outpatient visit 25 minutes Ravi Abreu MD Work Phone: [facility] Cardiology Comment on above: Paroxysmal atrial fi brillation (HCC) (Primary Dx); Atrial fibrillation with RVR (HCC); Orthostatic hypotension Start: 06-17-2023 End: 06-17-2023 [facility] Start: 06-17-2023 End: 06-17-2023 Postop follow up visit related to original px Memo Campbell MD Work Phone: [facility] [place] Comment on above: Encounter for postop erative care (Primary Dx); MOE on CPAP; Primary hypertension; Prediabetes; Deficiency of multiple nutrient elements; Intestinal malabsorption, unspecified type; Morbid obesity with BMI of 50.0-59.9, adult (HCC); Acute pancreatitis, unspecified complication status, unspecified pancreatitis type Start: 06-03-2023 End: 06-11-2023 Emergency department patient visit Artemio Colorado MD Work Phone: [facility] Surgical Progressive Care Unit PCU H6 Comment on above: Acute pancreatitis, unspecified complication status, unspecified pancreatitis type (Primary Dx); Nausea and vomiting, unspecified vomiting type; Severe malnutrition (CMS/HCC) (HCC); On total parenteral nutrition; Paroxysmal atrial fibrillation (HCC) Start: 06-03-2023 End: 06-11-2023 Evaluation and management of inpatient ELIAZAR ABREU [facility] Start: 06-03-2023 End: 06-03-[address] [facility] Start: 06-03-2023 End: 06-03-2023 Postop follow up visit related to original px Miley Moise PA Work Phone: [facility] [place] Comment on above: Dehydration (Primary Dx) Start: 05-27-2023 End: 05-27-2023 Postop follow up visit related to original px Memo Campbell MD Work Phone: [facility] [place] Comment on above: Encounter for postop erative care (Primary Dx); Deficiency of multiple nutrient elements; Intestinal malabsorption, unspecified type; Morbid obesity with BMI of 60.0-69.9, adult (HCC) Start: 05-20-2023 Telephone encounter Miley Chu Work Phone: [facility] [place] Comment on above: Appointment (1 week) Start: 05-19-2023 End: 05-21-2023 Emergency department patient visit Shauna Hamilton Work Phone: [facility] Medical Surgical Unit MSU H5 Comment on above: Hemoperitoneum (Prim jo Dx); Leg swelling; At high risk for venous thromboembolism (VTE); Morbid obesity with BMI of 60.0-69.9, adult (HCC) Start: 05-18-2023 ambulatory Balwinder Lam RN [facility] Clinical Communication Start: 05-18-2023 Patient encounter [facility] Start: 05-12-2023 ambulatory Marge Arrington Cl inical Communication Start: 05-12-2023 Patient encounter procedure Marge Arrington Clinical Communication Start: 05-10-2023 End: 05-11-2023 Evaluation and management of inpatient Memo Campbell MD Work Phone: [facility] Surgical Progressive Care Unit PCU H6 Comment on above: Morbid obesity with BMI of 60.0-69.9, adult (HCC) (Primary Dx); Morbid (severe) obesity due to excess calories (HCC) Start: 05-04-2023 Telephone encounter Rosalva irene HAND SPINNER - [employer] ECOLOGIST Work Phone: [facility] Anesthesia Start: 04-09-2023 ambulatory Balwinder Fajardo NP Work Phone: [facility] Comment on above: Morbid obesity with BMI of 60.0-69.9, adult (HCC) (Primary Dx) Start: 04-08-2023 End: 04-08-2023 Office outpatient visit 25 minutes Memo Campbell MD Work Phone: [facility] Comment on above: Morbid obesity with BMI of 60.0-69.9, adult (HCC) (Primary Dx); MOE on CPAP; Prediabetes; Mixed hyperlipidemia; Back pain, unspecified back location, unspecified back pain laterality, unspecified chronicity; Hepatic steatosis Start: 03-29-2023 Telephone encounter Memo harvey MD Work Phone: [facility] Comment on above: Anticoagulation (Marv enox) Start: 03-13-2023 ambulatory Balwinder Lam RN [facility] Clinical Communication Start: 03-13-2023 Patient encounter procedure Balwinder Lam RN [facility] Clinical Communication Start: 03-11-2023 Telephone encounter Ravi ferreira MD Work Phone: [facility] Clinical Communication Comment on above: OTHER (PT BELIEVES S HE IS IN AFIB AGAIN) Start: 02-24-2023 Telephone encounter Kimberley gardner RD Work Phone: [facility] Comment on above: Abnormal Lab (Low: V itamin D; Low end NL Vitamin B12 and Ferritin; Elevated Total Protein) Start: 02-05-2023 End: 02-05-2023 Office outpatient visit 25 minutes Mary Dias MD Work Phone: [facility] Comment on above: Prediabetes (Primary Dx); Low back pain, unspecified back pain laterality, unspecified chronicity, unspecified whether sciatica present; BMI 60.0-69.9, adult (HCC); Morbid obesity due to excess calories (HCC) Start: 01-25-2023 End: 01-25-2023 Office outpatient new 30 minutes Carmen Hirsch PA-C Work Phone: [facility] Pulmonary and Sleep Medicine Comment on above: Pre-operative cleara nce (Primary Dx); MOE (obstructive sleep apnea); Morbid obesity with BMI of 60.0-69.9, adult (HCC) Start: 01-25-2023 End: 01-25-2023 Preoperative state Carmen Hirsch PA-C Work Phone: [facility] Work Phone: Start: 01-20-2023 Telephone encounter Ravi ferreira MD Work Phone: [facility] Cardiology Start: 01-18-2023 End: 01-18-2023 Office outpatient visit 25 minutes Mary Dias MD Work Phone: [facility] Comment on above: Prediabetes (Primary Dx); Low back pain, unspecified back pain laterality, unspecified chronicity, unspecified whether sciatica present; BMI 60.0-69.9, adult (HCC); Morbid obesity due to excess calories (HCC) Start: 01-12-2023 End: 01-12-2023 Subsequent hospital visit by physician Ravi Abreu MD Work Phone: [facility] Non-Invasive Cardiology Comment on above: Paroxysmal atrial fi brillation (HCC) Start: 01-12-2023 End: 01-12-2023 Subsequent hospital visit by physician Memo Campbell MD Work Phone: [facility] Comment on above: Functional dyspepsia Start: 01-08-2023 End: 01-08-2023 Office outpatient visit 25 minutes Delphine Sanchez MD Work Phone: [facility] Cardiology Comment on above: Paroxysmal atrial fi brillation (HCC) (Primary Dx); MOE on CPAP; Prediabetes; Mixed hyperlipidemia Start: 12-24-2022 ambulatory Miley BRISENO Work Phone: [facility] [place] Start: 12-21-2022 Telephone encounter Ravi ferreira MD Work Phone: [facility] Cardiology Comment on above: Palpitations Start: 12-15-2022 Telephone encounter Kimberley gardner RD Work Phone: [facility] Comment on above: Abnormal Lab (Low: i linette, Vitamin D; Low normal: Vitamin B12 & Ferritin; Elevated: Total Protein ) Start: 12-14-2022 End: 12-14-2022 Office outpatient visit 25 minutes Mary Dias MD Work Phone: [facility] Comment on above: Prediabetes (Primary Dx); Low back pain, unspecified back pain laterality, unspecified chronicity, unspecified whether sciatica present; BMI 60.0-69.9, adult (HCC); Morbid obesity due to excess calories (HCC) Start: 11-02-2022 End: 11-02-2022 Office outpatient new 45 minutes Mary Dias MD Work Phone: [facility] Comment on above: Prediabetes (Primary Dx); Low back pain, unspecified back pain laterality, unspecified chronicity, unspecified whether sciatica present; BMI 60.0-69.9, adult (HCC); Morbid obesity due to excess calories (HCC) Start: 11-02-2022 End: 11-02-2022 Clinical Support Memo Campbell MD Work Phone: [facility] Comment on above: Morbid obesity with BMI of 60.0-69.9, adult (HCC) (Primary Dx) Start: 10-16-2022 End: 10-16-2022 ambulatory PA-C Xenia [address] PA Work Phone: [facility] Work Phone: Start: 10-16-2022 End: 10-16-2022 Patient encounter procedure PA-C Xenia Clatonia PA Work Phone: [facility]-Sleep Lab Work Phone: Start: 09-24-2022 End: 09-24-2022 Patient encounter procedure PA-C Xenia Clatonia PA Work Phone: [facility] [place] Work Phone: Start: 09-10-2022 Patient encounter status Miley BRISENO Work Phone: [facility] Start: 09-10-2022 Preoperative state Miley Quinteros ke PA Work Phone: [facility] Start: 09-10-2022 Telephone encounter Miley Ng pke PA Work Phone: [facility] Comment on above: Financial File (Camilla ncial File 2022); Surgery Scheduling (Initial Scheduling - Orders Pended ) Start: 09-10-2022 End: 09-10-2022 Office outpatient new 45 minutes Memo Campbell MD Work Phone: [facility] Comment on above: Chronic midline low back pain without sciatica (Primary Dx); Prediabetes; Morbid obesity with BMI of 60.0-69.9, adult (HCC) Start: 09-03-2022 End: 09-03-2022 ambulatory PA-C Xenia Clatonia PA Work Phone: [facility] Work Phone: Start: 09-03-2022 End: 09-03-2022 Patient encounter procedure PA-C Xenia Clatonia PA Work Phone: [facility]-Laboratory, OP Pavilion Start: 09-03-2022 End: 09-03-2022 Patient encounter procedure PA-C Xenia Clatonia PA Work Phone: [facility] Work Phone: Start: 09-01-2022 End: 09-21-2022 ambulatory PA-C Xenia Clatonia PA Work Phone: [facility] Work Phone: Start: 09-01-2022 End: 09-21-2022 Discharged Recurring PA-C Xenia Clatonia PA Work Phone: [facility]-Nutritional Services Work Phone: Start: 09-01-2022 Registered Recurring PA-C Valarie Lane PA Work Phone: [facility] Work Phone: Start: 07-27-2022 End: 08-21-2022 ambulatory PA-C Xenia Lane PA Work Phone: [facility] Work Phone: Start: 07-27-2022 End: 08-21-2022 Discharged Recurring PA-C Xeniadio Lane PA Work Phone: [facility]ritional Services Work Phone: Start: 07-01-2022 End: 07-22-2022 ambulatory PA-C Xeniadio Lane PA Work Phone: [facility] Work Phone: Start: 07-01-2022 End: 07-22-2022 Discharged Recurring PA-C Xenia [place] [facility] Start: 06-29-2022 End: 06-29-2022 Patient encounter procedure PA-C Xenia Hills PA Work Phone: [facility] Gastro[facility] Start: 06-18-2022 End: 06-18-2022 Patient encounter procedure PA-C Xeniadio Lane PA Work Phone: [facility] Start: 06-11-2022 Non-patient / Non-visit PA-C Maggi Lane PA Work Phone: [facility] Start: 06-11-2022 End: 06-11-2022 Admission to same day surgery center PA-C Xeniadio Lane PA Work Phone: [facility]-Endoscopy Start: 06-11-2022 End: 06-11-2022 ambulatory PA-C Xenia Hills PA Work Phone: [facility] Work Phone: Start: 06-03-2022 End: 06-21-2022 Discharged Recurring PA-C Xenia Domingo PA Work Phone: [facility] Start: 06-03-2022 Registered Recurring PA-C Valarie Lane PA [facility] Start: 05-20-2022 End: 05-22-2022 ambulatory PA-C Xenia Lane PA Work Phone: [facility] Work Phone: Start: 05-20-2022 End: 05-22-2022 Discharged Recurring PA-C Xenia Lane PA Work Phone: [facility] Start: 05-08-2022 End: 05-08-2022 Patient encounter procedure PA-C Xenia Lane PA Work Phone: [facility] Women[facility] Start: 05-07-2022 End: 05-07-2022 ambulatory PA-C Xenia Lane PA Work Phone: [facility] Work Phone: Start: 05-07-2022 End: 05-07-2022 Patient encounter procedure PA-C Xenia Lane PA Work Phone: [facility]-Laboratory, Specimen Start: 05-04-2022 End: 05-04-2022 ambulatory PA-C Xenia Lane PA Work Phone: [facility] Work Phone: Start: 05-04-2022 End: 05-04-2022 Patient encounter procedure PA-C Xenia Lane PA Work Phone: [facility] Start: 04-29-2022 End: 04-29-2022 ambulatory PA-C Xenia Lane PA Work Phone: [facility] Work Phone: Start: 04-29-2022 End: 04-29-2022 Patient encounter procedure PA-C Xenia Lane PA Work Phone: [facility] Start: 04-13-2022 End: 04-13-2022 Patient encounter procedure PA-C Xenia Clatonia PA Work Phone: [facility] Start: 04-13-2022 End: 04-13-2022 ambulatory PA-C Xenia Clatonia PA Work Phone: [facility] Work Phone: Start: 04-13-2022 End: 04-13-2022 Patient encounter procedure PA-C Xenia Clatonia PA Work Phone: [facility]-Ultrasound, [facility] Start: 04-08-2022 End: 04-08-2022 ambulatory PA-C Xenia Clatonia PA Work Phone: [facility] Work Phone: Start: 04-08-2022 End: 04-08-2022 Patient encounter procedure PA-C Xenia Clatonia PA Work Phone: [facility]-Laboratory Start: 04-06-2022 End: 04-06-2022 ambulatory PA-C Xenia Clatonia PA Work Phone: [facility] Work Phone: Start: 04-06-2022 End: 04-06-2022 Patient encounter procedure PA-C Xenia Clatonia [facility] Start: 03-11-2022 End: 03-11-2022 ambulatory PA-C Xenia Clatonia PA Work Phone: [facility] Work Phone: Start: 03-11-2022 End: 03-11-2022 Patient encounter procedure PA-C Xenia Clatonia PA Work Phone: [facility]Laboratory, [facility] Start: 03-03-2022 End: 03-03-2022 ambulatory PA-C Xenia Clatonia PA Work Phone: [facility] Work Phone: Start: 03-03-2022 End: 03-03-2022 [facility] Start: 02-24-2022 End: 02-24-2022 ambulatory [place]-C [facility] Work Phone: [facility] Work Phone: Start: 02-24-2022 End: 02-24-2022 Patient encounter procedure [facility] Start: 02-19-2022 End: 02-19-2022 ambulatory [facility] Work Phone: Start: 02-19-2022 End: 02-19-2022 Patient encounter procedure [facility] Procedures Date Procedure Procedure Detail Performing Clinician Start: 07-19-2024 History of gastroint estinal tract bypass History of Sandra-en-Y gastric bypass Vidyamichelle Ott Work Phone: Start: 06-28-2024 Transvaginal obstetr ic ultrasonography [facility] Work Phone: Start: 06-27-2024 Estimated creatinine clearance [facility] Work Phone: Start: 06-16-2024 Urnls dip stick/tabl et reagent auto microscopy [facility] Work Phone: Start: 05-29-2024 Urine culture [facility] Work Phone: Start: 05-29-2024 Hepatitis C antibody measurement [facility] Work Phone: Comment on above: Reactive: Presumptiv e evidence of antibodies to HCV. Follow CDC recommendations for supplemental testing.Non-Reactive: Antibodies to HCV were not detected; does not exclude the possibility of exposure to HCVReactive Results are presumptive evidence of antibodies to HCV. Follow CDC recommendations for supplemental testing.Order confirmation testing: HCV Quant by PCR testing - HCVPCR #[id number] Non Reactive: < 0.8 Equivocal: >/= 0.8 to < 1.0 Reactive: >/= 1.0The CDC requires that a reactive/equivocal HCV antibody result be sent out for confirmation. HCV Quant by PCR testing. Start: 05-29-2024 Rubella IgG measurement [facility] Work Phone: Comment on above: Antibody Result: Int erpretationNon-Reactive: Non- ImmuneReactive: ImmuneThe following results were obtained with the [employer] Rubella IgG assay. Results from assays of other manufacturers cannot be used interchangeably. Start: 05-29-2024 Serologic test for syphilis [facility] Work Phone: Start: 05-25-2024 Transvaginal obstetr ic ultrasonography [facility] Work Phone: Start: 05-11-2024 Follow-up visit BRANDY ROSE Start: 05-11-2024 Lipid 1996 panel - S cj or Plasma Memo Campbell MD Work Phone: Start: 05-09-2024 Transvaginal obstetr ic ultrasonography [facility] Work Phone: Start: 05-01-2024 Transvaginal obstetr ic ultrasonography [facility] Work Phone: Start: 03-10-2024 Urnls dip stick/tabl et reagent auto microscopy [facility] Work Phone: Start: 03-10-2024 Estimated creatinine clearance [facility] Work Phone: Start: 03-10-2024 Measurement of renal function [facility] Work Phone: Comment on above: GFR Calc Start: 03-03-2024 Laboratory data interpretation [facility] Work Phone: Comment on above: No lupus anticoagula nt was detected. Start: 03-03-2024 Lupus anticoagulant assay, platelet neutralization method [facility] Work Phone: Start: 03-03-2024 Lupus anticoagulant screening test [facility] Work Phone: Start: 03-03-[address] [facility] Work Phone: Start: 03-03-2024 Serum IgM anticardio lipin measurement [facility] Work Phone: Comment on above: Negative: <13 Indete rminate: 13 - 20 Low-Med Positive: >20 - 80 High Positive: >80Performed at: [facility] [address] [id number] Director: Ayo Burns MD, Phone: [phone] at: [facility] [id number] Director: Xavier Salas PhD, Phone: [phone] Start: 03-02-2024 Ultrasonography of abdomen Xenia BRISENOASYM III Work Phone: Start: 02-20-2024 Urinalysis CANDE [facility] Comment on above: Result Comment: URIN ALYSIS Performed By: #### [id number] #### [facility],[address] [place], [place] [id number] Start: 02-11-2024 Ecg routine ecg w/le ast 12 lds trcg only w/o i&r Meet S Stanislav WALLS Work Phone: Start: 02-11-2024 Follow-up visit BRANDY ROSE Start: 02-11-2024 Lipid 1996 panel - S cj or Plasma Chely Garcia HAND SP[employer]NER - PLANT [employer]IST Work Phone: Start: 11-15-2023 Follow-up visit BRANDY ROSE Start: 11-02-2023 Comprehensive metabo lic panel Manuel Villarreal MD Work Phone: Start: 11-02-2023 Manual differential performed [Presence] in Blood Manuel Villarreal MD Work Phone: Start: 11-01-2023 Dup-scan artl brandan abdl/pel/scrot&/rpr orgn lmt Conor Ragland MD Work Phone: Start: 11-01-2023 Antibody conner-bar r eb virus early antigen ea Ángela Gomez [employer] SP[employer]NER - PLANT [employer]IST Work Phone: Start: 11-01-2023 Comprehensive metabo lic panel Manuel Villarreal MD Work Phone: Start: 11-01-2023 Manual differential performed [Presence] in Blood Manuel Villarreal MD Work Phone: Start: 10-31-2023 Comprehensive metabo lic panel Manuel Villarreal MD Work Phone: Start: 10-31-2023 Manual differential performed [Presence] in Blood Manuel Villarreal MD Work Phone: Start: 10-30-2023 Antibody cytomegalov irus cmv Ángela Castano Meranthony HAND SP[employer]NER - PLANT ECOLOGIST Work Phone: Start: 10-30-2023 Assay of gammaglobul in iga igd igg igm each Ángela Castano Meranthony [employer] SP[employer]NER - PLANT ECOLOGIST Work Phone: Start: 10-30-2023 ANTIMITOCHONDRIAL ANTIBODY Gunjan Avilez PA-C Work Phone: Start: 10-30-2023 Comprehensive metabo lic panel Manuel Villarreal MD Work Phone: Start: 10-30-2023 Hepatitis b core ant ibody hbcab total Gunjan Avilez PA-C Work Phone: Start: 10-30-2023 Manual differential performed [Presence] in Blood Manuel Villarreal MD Work Phone: Start: 10-29-2023 Mri abdomen w/o cont rast material Hyacinth Solis HAND SPINNER - PLANT ECOLOGIST Work Phone: Start: 10-29-2023 Comprehensive metabo lic panel Manuel Villarreal MD Work Phone: Start: 10-29-2023 Manual differential performed [Presence] in Blood Manuel Villarreal MD Work Phone: Start: 10-28-2023 Comprehensive metabo lic panel Rao Mcdonoguh DO Work Phone: Start: 10-28-2023 Manual differential performed [Presence] in Blood Rao Ceasar DO Work Phone: Start: 10-27-2023 Comprehensive metabo lic panel Zeenat Gentile MD Work Phone: Start: 10-27-2023 Manual differential performed [Presence] in Blood Zeenat Gentile MD Work Phone: Start: 10-27-2023 Drug test def 1-7 classes Fernando A Gombash DO Work Phone: Start: 10-27-2023 Urinalysis complete panel - Urine Henny Hilarioas PA-C Work Phone: Start: 10-27-2023 Urine test visual color cmprsn meths Henny Hyde Janas PA-C Work Phone: Start: 10-27-2023 Urnls dip stick/tabl et reagent auto microscopy Henny Hyde Janas PA-C Work Phone: Start: 10-26-2023 End: 10-27-2023 Heterophile antibodies screen Henny Hilarioas PA-C Work Phone: Start: 10-26-2023 End: 10-27-2023 Bacteria identified in Blood by Culture Henny Hyde Janas PA-C Work Phone: Start: 10-26-2023 Basic metabolic pane l calcium total Henny Hilarioas PA-C Work Phone: Start: 10-26-2023 Manual differential performed [Presence] in Blood Henny Hilarioas PA-C Work Phone: Start: 10-26-2023 Radiologic exam ches t single view Henny Hyde Janas PA-C Work Phone: Start: 10-24-2023 Urinalysis [facility] Comment on above: Result Comment: URIN ALYSIS Performed By: [id number] #### [facility],[address] [place] [address] Start: 08-23-2023 Follow-up visit BRANDY ROSE Start: 08-23-2023 Ecg routine ecg w/le ast 12 lds w/i&r Meet Tania Colorado MD Work Phone: Start: 08-23-2023 Follow-up visit BRANDY ROSE Start: 08-11-2023 Follow-up visit BRANDY ROSE Start: 08-10-2023 Urinalysis [facility]DE [facility] Comment on above: Result Comment: URIN ALYSIS Performed By: #### [id number] #### [facility],[address] [place] [address] Start: 07-05-2023 Follow-up visit BRANDY ROSE Start: 06-17-2023 Follow-up visit BRANDY ROSE Start: 06-11-2023 Basic metabolic pane l calcium total Suze Cuba MD Work Phone: Start: 06-10-2023 Potassium serum plasma/whole blood Jeannine Worthy MD Work Phone: Start: 06-10-2023 Basic metabolic pane l calcium total Suze Cuba MD Work Phone: Start: 06-10-2023 Calcium ionized Alejandrool rowdy Cuba MD Work Phone: Start: 06-10-2023 Complete blood count with white cell differential, automated Christy Lopez MD Work Phone: Start: 06-09-2023 Basic metabolic pane l calcium total Jeannine Worthy MD Work Phone: Start: 06-09-2023 Basic metabolic pane l calcium total Suze Cuba MD Work Phone: Start: 06-08-2023 Glucose quantitative blood xcpt reagent strip Banter! DO Work Phone: Start: 06-08-2023 Us abdominal real ti me w/image documentation Memo Campbell MD Work Phone: Start: 06-08-2023 Glucose quantitative blood xcpt reagent strip [employer]ter! DO Work Phone: Start: 06-08-2023 Basic metabolic pane l calcium total Suze Cuba MD Work Phone: Start: 06-08-2023 Lipid panel Mai Ly MD Work Phone: Start: 06-08-2023 Lipid 1996 panel - S cj or Plasma Artemio Colorado MD Work Phone: Start: 06-08-2023 Glucose quantitative blood xcpt reagent strip [employer] Work Phone: Start: 06-07-2023 Glucose quantitative blood xcpt reagent strip [employer] Work Phone: Start: 06-07-2023 Basic metabolic pane l calcium total Fox Saleem MD Work Phone: Start: 06-07-2023 Ecg routine ecg w/le ast 12 lds trcg only w/o i&r Memo Campbell MD Work Phone: Start: 06-07-2023 Radiologic exam ches t single view Suze Cuba MD Work Phone: Start: 06-07-2023 HCS PICC DOUBLE LUMEN G monica Cuba MD Work Phone: Start: 06-07-2023 Insertion picc w/rs& i 5 yr/> Suze Cuba MD Work Phone: Start: 06-07-2023 Glucose quantitative blood xcpt reagent strip [employer] Work Phone: Start: 06-07-2023 End: 06-07-2023 Comprehensive metabolic panel Christy Lopez MD Work Phone: Start: 06-06-2023 Mri abdomen w/o cont rast material Weston Pagan MD Work Phone: Start: 06-06-2023 Comprehensive metabo lic panel Christy Lopez MD Work Phone: Start: 06-06-2023 Blood count complete auto&auto difrntl wbc Christy Lopez MD Work Phone: Start: 06-05-2023 Comprehensive metabo lic panel Christy Lopez MD Work Phone: Start: 06-04-2023 Radiologic exam upr gi trc double contrast study Memo Campbell MD Work Phone: Start: 06-04-2023 Comprehensive metabo lic panel Christy Lopez MD Work Phone: Start: 06-03-2023 Ct abdomen & pelvis w/contrast material Artemio Colorado MD Work Phone: Start: 06-03-2023 Culture bacterial quanttative colony count urine Artemio Colorado MD Work Phone: Start: 06-03-2023 Urinalysis complete panel - Urine Artemio Colorado MD Work Phone: Start: 06-03-2023 Comprehensive metabo lic panel Artemio Colorado MD Work Phone: Start: 06-03-2023 Follow-up visit BRANDY ROSE Start: 05-21-2023 Basic metabolic pane l calcium total Aurelia Rich MD Work Phone: Start: 05-20-2023 ABO and Rh group [Ty pe] in Blood by Confirmatory method Christy Lopez MD Work Phone: Start: 05-20-2023 Blood count hematocrit Pina Ellis MD Work Phone: Start: 05-20-2023 Blood typing serologic abo Christy Lopez MD Work Phone: Start: 05-20-2023 Dup-scan xtr veins c omplete bilateral study Pina Ellis MD Work Phone: Start: 05-20-2023 Basic metabolic pane l calcium total Aurelia Rich MD Work Phone: Start: 05-19-2023 Ct abdomen & pelvis w/contrast material Shauna Joy DO Work Phone: Start: 05-19-2023 Urinalysis complete panel - Urine Shauna Joy DO Work Phone: Start: 05-19-2023 Urine test visual color cmprsn meths Shauna Joy DO Work Phone: Start: 05-19-2023 Urnls dip stick/tabl et reagent auto microscopy Shauna Joy DO Work Phone: Start: 05-19-2023 Comprehensive metabo lic panel Shaunakb Hamilton DO Work Phone: Start: 05-19-2023 Ecg routine ecg w/le ast 12 lds trcg only w/o i&r Shauna Hamilton DO Work Phone: Start: 05-11-2023 Radiologic exam upr gi trc single contrast study El Fisher MD Work Phone: Start: 05-11-2023 Basic metabolic pane l calcium total El Fisher MD Work Phone: Start: 05-10-2023 Basic metabolic pane l calcium total Memo Campbell MD Work Phone: Start: 05-10-2023 End: 05-10-2023 Laps gstr rstcv px w/byp sandra-en-y limb <150 cm Memo Campbell MD Work Phone: Start: 05-10-2023 End: 05-10-2023 Unlis laparoscopic procedure liver Memo Campbell MD Work Phone: Start: 05-10-2023 Urine test visual color cmprsn meths Giorgio Monte MD Work Phone: Start: 01-12-2023 TTE w or wo fol wcon,Vin Abreu MD Work Phone: Start: 01-08-2023 Ecg routine ecg w/le ast 12 lds trcg only w/o i&r Monica Landry MD Work Phone: Start: 12-14-2022 Lipid 1996 panel - S cj or Plasma Mary Dias MD Work Phone: Start: 06-11-2022 Colonoscopy PA-Manoj BRISENO Work Phone: Start: 05-07-2022 Clostridium difficil e detection PA-Manoj BRISENO Work Phone: Start: 05-07-2022 Lactoferrin measurement PA-Manoj BRISENO Work Phone: Start: 05-07-2022 Nucleic acid assay PA-Manoj Xenia [facility] Work Phone: Start: 05-04-2022 Computed tomography of abdomen and pelvis with contrast RUMA Xenia [facility] Work Phone: Start: 04-13-2022 Transvaginal obstetr ic ultrasonography PA-Manoj Xenia Clatonia PA Work Phone: Clostridium difficil e detection PA-Manoj Xenia [facility] Work Phone: Enteric Bacteriology PA-Manoj Wahl nichol [facility] Work Phone: History of gastroint estinal tract bypass History of Sandra-en-Y gastric bypass Miley Moise PA-C Work Phone: History of gastroint estinal tract bypass History of Sandra-en-Y gastric bypass Dr. Peggy Flynn DO Comment on above: NO GLUCOLA. will nee d 2 weeks glucose testing at 26-28 weeks. History of gastroint estinal tract bypass History of Sandra-en-Y gastric bypass Dr. Peggy Flynn DO History of gastroint estinal tract bypass History of Sandra-en-Y gastric bypass Christy Whitten CNM Plan of Treatment Date Care Activity Detail Author Start: 09-21-2070 RSV Immunization for Adults (1 - 1-dose 75+ series) RSV Immunization for Adults (1 - 1-dose 75+ series) [facility] Start: 2055 RSV Immunization aged 60 or older (1 - 1-dose 60+ series) RSV Immunization aged 60 or older (1 - 1-dose 60+ series) [facility] Start: 09-21-2045 Zoster Vaccines (1 of 2) Zoster Vaccines (1 of 2) [facility] Start: 05-11-2029 Lipid panel Lipid Panel [facility] Start: 02-10-2029 Lipid panel Lipid Panel [facility] Start: 06-07-2028 Lipid panel Lipid Panel [facility] Start: 12-15-2027 Lipid panel Lipid Panel [facility] Start: 11-13-2024 End: 11-13-2024 Patient encounter procedure 11/13/2024 1:30 PM EDT Office Visit [facility] Weight Management - [address] [id number] Mary Dias MD [address] [facility] [address] [place] [address] [facility] Weight Management [facility] Start: 11-08-2024 End: 05-08-2025 Vitamin B1, whole blood ([facility]) Vitamin B1, whole blood ([facility]) Lab Routine Deficiency of multiple nutrient elements Intestinal malabsorption, unspecified type History of gastric bypass Expected: 11/08/2024 (Approximate), Expires: 05/08/2025 [facility] Work Phone: Comment on above: Expected: 11/08/2024 (Approximate), Expi res: 05/08/2025 Start: 11-08-2024 End: 05-08-2025 Zinc (Sendout) Zinc (Sendout) Lab Routine Deficiency of multiple nutrient elements Intestinal malabsorption, unspecified type History of gastric bypass Expected: 11/08/2024 (Approximate), Expires: 05/08/2025 [facility] Comment on above: Expected: 11/08/2024 (Approximate), Expi res: 05/08/2025 Start: 10-23-2024 FLU (Season Ended) FLU (Season Ended) [facility] Start: 10-23-2024 Influenza vaccination Influenza Vaccine (Season Ended) [facility] Start: 08-12-2024 End: 10-12-2024 25-hydroxyvitamin D3 [Mass/volume] in Serum or Plasma Vitamin D Deficiency Screening (Vit D 25) Lab Routine Vitamin D deficiency Expected: 08/12/2024 (Approximate), Expires: 10/12/2024 [facility] Comment on above: Expected: 08/12/2024 (Approximate), Expi res: 10/12/2024 Start: 08-12-2024 End: 10-12-2024 Cobalamin (Vitamin B12) [Mass/volume] in Serum or Plasma Vitamin B12 Lab Routine B12 deficiency Expected: 08/12/2024 (Approximate), Expires: 10/12/2024 [facility] Comment on above: Expected: 08/12/2024 (Approximate), Expi res: 10/12/2024 Start: 08-12-2024 End: 10-12-2024 Iron and Iron binding capacity panel - Serum or Plasma Iron Lab Routine Iron deficiency Expected: 08/12/2024 (Approximate), Expires: 10/12/2024 [facility] Comment on above: Expected: 08/12/2024 (Approximate), Expi res: 10/12/2024 Start: 08-12-2024 End: 10-12-2024 Zinc (Sendout) Zinc (Sendout) Lab Routine Zinc deficiency Expected: 08/12/2024 (Approximate), Expires: 10/12/2024 [facility] Work Phone: Comment on above: Expected: 08/12/2024 (Approximate), Expi res: 10/12/2024 Start: 08-02-2024 End: 08-02-2024 Follow-up encounter 08/02/2024 1:30 PM EDT Clinical Support Maternal Medicine [address] [phone] Xenia Louis, [facility] [place] [address] MFM follow up with [facility] Comment on above: MFM follow up with [facility] Start: 07-04-2024 CBC W Auto Differential panel - Blood [facility] Start: 06-28-2024 [facility] Start: 06-28-2024 Patient discharge [facility] Start: 06-17-2024 [facility] Start: 05-29-2024 Bacteria identified in Urine by Culture Urine Culture [facility] Start: 05-29-2024 [facility] Start: 05-16-2024 End: 05-16-2025 25-hydroxyvitamin D3 [Mass/volume] in Serum or Plasma Vitamin D Deficiency Screening (Vit D 25) Lab Routine Iron deficiency B12 deficiency Vitamin D deficiency Zinc deficiency Deficiency of multiple nutrient elements Intestinal malabsorption, unspecified type History of gastric bypass Back pain, unspecified back location, unspecified back pain laterality, unspecified chronicity Expected: 05/16/2024, Expires: 05/16/2025 [facility] Comment on above: Expected: 05/16/2024, Expires: Start: 05-16-2024 End: 05-16-2025 CBC panel - Blood by Automated count CBC Lab Routine Iron deficiency B12 deficiency Vitamin D deficiency Zinc deficiency Deficiency of multiple nutrient elements Intestinal malabsorption, unspecified type History of gastric bypass Back pain, unspecified back location, unspecified back pain laterality, unspecified chronicity Expected: 05/16/2024, Expires: 05/16/2025 [employer] Comment on above: Expected: 05/16/2024, Expires: Start: 05-16-2024 End: 05-16-2025 Cobalamin (Vitamin B12) [Mass/volume] in Serum or Plasma Vitamin B12 Lab Routine Iron deficiency B12 deficiency Vitamin D deficiency Zinc deficiency Deficiency of multiple nutrient elements Intestinal malabsorption, unspecified type History of gastric bypass Back pain, unspecified back location, unspecified back pain laterality, unspecified chronicity Expected: 05/16/2024, Expires: 05/16/2025 [employer] Comment on above: Expected: 05/16/2024, Expires: Start: 05-16-2024 End: 05-16-2025 Comprehensive metabolic 1998 panel - Serum or Plasma Comprehensive metabolic panel Lab Routine Iron deficiency B12 deficiency Vitamin D deficiency Zinc deficiency Deficiency of multiple nutrient elements Intestinal malabsorption, unspecified type History of gastric bypass Back pain, unspecified back location, unspecified back pain laterality, unspecified chronicity Expected: 05/16/2024, Expires: 05/16/2025 [employer] Comment on above: Expected: 05/16/2024, Expires: Start: 05-16-2024 End: 05-16-2025 Ferritin [Mass/volume] in Serum or Plasma Ferritin Lab Routine Iron deficiency B12 deficiency Vitamin D deficiency Zinc deficiency Deficiency of multiple nutrient elements Intestinal malabsorption, unspecified type History of gastric bypass Back pain, unspecified back location, unspecified back pain laterality, unspecified chronicity Expected: 05/16/2024, Expires: 05/16/2025 [employer] Comment on above: Expected: 05/16/2024, Expires: Start: 05-16-2024 End: 05-16-2025 Folate [Mass/volume] in Serum or Plasma Folate Lab Routine Iron deficiency B12 deficiency Vitamin D deficiency Zinc deficiency Deficiency of multiple nutrient elements Intestinal malabsorption, unspecified type History of gastric bypass Back pain, unspecified back location, unspecified back pain laterality, unspecified chronicity Expected: 05/16/2024, Expires: 05/16/2025 [employer] [facility] Comment on above: Expected: 05/16/2024, Expires: Start: 05-16-2024 End: 05-16-2025 Iron and Iron binding capacity panel - Serum or Plasma Iron Lab Routine Iron deficiency B12 deficiency Vitamin D deficiency Zinc deficiency Deficiency of multiple nutrient elements Intestinal malabsorption, unspecified type History of gastric bypass Back pain, unspecified back location, unspecified back pain laterality, unspecified chronicity Expected: 05/16/2024, Expires: 05/16/2025 [employer] [facility] Comment on above: Expected: 05/16/2024, Expires: Start: 05-16-2024 End: 05-16-2025 Lipid 1996 panel - Serum or Plasma Lipid panel Lab Routine Iron deficiency B12 deficiency Vitamin D deficiency Zinc deficiency Deficiency of multiple nutrient elements Intestinal malabsorption, unspecified type History of gastric bypass Back pain, unspecified back location, unspecified back pain laterality, unspecified chronicity Expected: 05/16/2024, Expires: 05/16/2025 [employer] [facility] Comment on above: Expected: 05/16/2024, Expires: Start: 05-16-2024 End: 05-16-2025 Magnesium [Mass/volume] in Serum or Plasma Magnesium Lab Routine Iron deficiency B12 deficiency Vitamin D deficiency Zinc deficiency Deficiency of multiple nutrient elements Intestinal malabsorption, unspecified type History of gastric bypass Back pain, unspecified back location, unspecified back pain laterality, unspecified chronicity Expected: 05/16/2024, Expires: 05/16/2025 [employer] [facility] Comment on above: Expected: 05/16/2024, Expires: Start: 05-16-2024 End: 05-16-2025 Vitamin B1, whole blood ([facility]) Vitamin B1, whole blood ([facility]) Lab Routine Iron deficiency B12 deficiency Vitamin D deficiency Zinc deficiency Deficiency of multiple nutrient elements Intestinal malabsorption, unspecified type History of gastric bypass Back pain, unspecified back location, unspecified back pain laterality, unspecified chronicity Expected: 05/16/2024, Expires: 05/16/2025 [employer] [facility] Comment on above: Expected: 05/16/2024, Expires: Start: 05-16-2024 End: 05-16-2025 Zinc (Sendout) Zinc (Sendout) Lab Routine Iron deficiency B12 deficiency Vitamin D deficiency Zinc deficiency Deficiency of multiple nutrient elements Intestinal malabsorption, unspecified type History of gastric bypass Back pain, unspecified back location, unspecified back pain laterality, unspecified chronicity Expected: 05/16/2024, Expires: 05/16/2025 [employer] [facility] Comment on above: Expected: 05/16/2024, Expires: Start: 05-11-2024 End: 05-11-2024 Patient encounter procedure [facility] Start: 05-07-2024 End: 11-07-2024 25-hydroxyvitamin D3 [Mass/volume] in Serum or Plasma Vitamin D Deficiency Screening (Vit D 25) Lab Routine Deficiency of multiple nutrient elements Intestinal malabsorption, unspecified type History of gastric bypass Primary hypertension MOE on CPAP Morbid obesity with BMI of 45.0-49.9, adult (HCC) Expected: 05/07/2024 (Approximate), Expires: 11/07/2024 [employer] [facility] Comment on above: Expected: 05/07/2024 (Approximate), Expi res: 11/07/2024 Start: 05-07-2024 End: 11-07-2024 CBC panel - Blood by Automated count CBC Lab Routine Deficiency of multiple nutrient elements Intestinal malabsorption, unspecified type History of gastric bypass Primary hypertension MOE on CPAP Morbid obesity with BMI of 45.0-49.9, adult (HCC) Expected: 05/07/2024 (Approximate), Expires: 11/07/2024 [employer] [facility] Comment on above: Expected: 05/07/2024 (Approximate), Expi res: 11/07/2024 Start: 05-07-2024 End: 11-07-2024 Cobalamin (Vitamin B12) [Mass/volume] in Serum or Plasma Vitamin B12 Lab Routine Deficiency of multiple nutrient elements Intestinal malabsorption, unspecified type History of gastric bypass Primary hypertension MOE on CPAP Morbid obesity with BMI of 45.0-49.9, adult (HCC) Expected: 05/07/2024 (Approximate), Expires: 11/07/2024 [facility] Comment on above: Expected: 05/07/2024 (Approximate), Expi res: 11/07/2024 Start: 05-07-2024 End: 11-07-2024 Comprehensive metabolic 1998 panel - Serum or Plasma Comprehensive metabolic panel Lab Routine Deficiency of multiple nutrient elements Intestinal malabsorption, unspecified type History of gastric bypass Primary hypertension MOE on CPAP Morbid obesity with BMI of 45.0-49.9, adult (HCC) Expected: 05/07/2024 (Approximate), Expires: 11/07/2024 [employer] [facility] Comment on above: Expected: 05/07/2024 (Approximate), Expi res: 11/07/2024 Start: 05-07-2024 End: 11-07-2024 Ferritin [Mass/volume] in Serum or Plasma Ferritin Lab Routine Deficiency of multiple nutrient elements Intestinal malabsorption, unspecified type History of gastric bypass Primary hypertension MOE on CPAP Morbid obesity with BMI of 45.0-49.9, adult (HCC) Expected: 05/07/2024 (Approximate), Expires: 11/07/2024 [employer] [facility] Comment on above: Expected: 05/07/2024 (Approximate), Expi res: 11/07/2024 Start: 05-07-2024 End: 11-07-2024 Folate [Mass/volume] in Serum or Plasma Folate Lab Routine Deficiency of multiple nutrient elements Intestinal malabsorption, unspecified type History of gastric bypass Primary hypertension MOE on CPAP Morbid obesity with BMI of 45.0-49.9, adult (HCC) Expected: 05/07/2024 (Approximate), Expires: 11/07/2024 [facility] Comment on above: Expected: 05/07/2024 (Approximate), Expi res: 11/07/2024 Start: 05-07-2024 End: 11-07-2024 Iron and Iron binding capacity panel - Serum or Plasma Iron Lab Routine Deficiency of multiple nutrient elements Intestinal malabsorption, unspecified type History of gastric bypass Primary hypertension MOE on CPAP Morbid obesity with BMI of 45.0-49.9, adult (HCC) Expected: 05/07/2024 (Approximate), Expires: 11/07/2024 [facility] Comment on above: Expected: 05/07/2024 (Approximate), Expi res: 11/07/2024 Start: 05-07-2024 End: 11-07-2024 Lipid 1996 panel - Serum or Plasma Lipid panel Lab Routine Deficiency of multiple nutrient elements Intestinal malabsorption, unspecified type History of gastric bypass Primary hypertension MOE on CPAP Morbid obesity with BMI of 45.0-49.9, adult (HCC) Expected: 05/07/2024 (Approximate), Expires: 11/07/2024 [facility] Comment on above: Expected: 05/07/2024 (Approximate), Expi res: 11/07/2024 Start: 05-07-2024 End: 11-07-2024 Magnesium [Mass/volume] in Serum or Plasma Magnesium Lab Routine Deficiency of multiple nutrient elements Intestinal malabsorption, unspecified type History of gastric bypass Primary hypertension MOE on CPAP Morbid obesity with BMI of 45.0-49.9, adult (HCC) Expected: 05/07/2024 (Approximate), Expires: 11/07/2024 [facility] Comment on above: Expected: 05/07/2024 (Approximate), Expi res: 11/07/2024 Start: 05-07-2024 End: 11-07-2024 Vitamin B1, whole blood ([facility]) Vitamin B1, whole blood ([facility]) Lab Routine Deficiency of multiple nutrient elements Intestinal malabsorption, unspecified type History of gastric bypass Primary hypertension MOE on CPAP Morbid obesity with BMI of 45.0-49.9, adult (HCC) Expected: 05/07/2024 (Approximate), Expires: 11/07/2024 [facility] Comment on above: Expected: 05/07/2024 (Approximate), Expi res: 11/07/2024 Start: 05-07-2024 End: 11-07-2024 Zinc (Sendout) Zinc (Sendout) Lab Routine Deficiency of multiple nutrient elements Intestinal malabsorption, unspecified type History of gastric bypass Primary hypertension MOE on CPAP Morbid obesity with BMI of 45.0-49.9, adult (HCC) Expected: 05/07/2024 (Approximate), Expires: 11/07/2024 [facility] Work Phone: Comment on above: Expected: 05/07/2024 (Approximate), Expi res: 11/07/2024 Start: 05-02-2024 Diabetes mellitus screening Diabetes Screening [facility] Start: 03-10-2024 [facility] Start: 02-11-2024 End: 02-11-2024 Patient encounter procedure [facility] Start: 12-27-2023 End: 11-14-2024 25-hydroxyvitamin D3 [Mass/volume] in Serum or Plasma Vitamin D Deficiency Screening (Vit D 25) Lab Routine Deficiency of multiple nutrient elements Intestinal malabsorption, unspecified type History of gastric bypass Primary hypertension MOE on CPAP Morbid obesity with BMI of 45.0-49.9, adult (HCC) Expected: 12/27/2023, Expires: 11/14/2024 [facility] Comment on above: Expected: 12/27/2023, Expires: Start: 12-27-2023 End: 11-14-2024 CBC panel - Blood by Automated count CBC Lab Routine Deficiency of multiple nutrient elements Intestinal malabsorption, unspecified type History of gastric bypass Primary hypertension MOE on CPAP Morbid obesity with BMI of 45.0-49.9, adult (HCC) Expected: 12/27/2023, Expires: 11/14/2024 [facility] Comment on above: Expected: 12/27/2023, Expires: Start: 12-27-2023 End: 11-14-2024 Cobalamin (Vitamin B12) [Mass/volume] in Serum or Plasma Vitamin B12 Lab Routine Deficiency of multiple nutrient elements Intestinal malabsorption, unspecified type History of gastric bypass Primary hypertension MOE on CPAP Morbid obesity with BMI of 45.0-49.9, adult (HCC) Expected: 12/27/2023, Expires: 11/14/2024 [facility] Comment on above: Expected: 12/27/2023, Expires: Start: 12-27-2023 End: 11-14-2024 Comprehensive metabolic 1998 panel - Serum or Plasma Comprehensive metabolic panel Lab Routine Deficiency of multiple nutrient elements Intestinal malabsorption, unspecified type History of gastric bypass Primary hypertension MOE on CPAP Morbid obesity with BMI of 45.0-49.9, adult (HCC) Expected: 12/27/2023, Expires: 11/14/2024 [facility] Comment on above: Expected: 12/27/2023, Expires: Start: 12-27-2023 End: 11-14-2024 Ferritin [Mass/volume] in Serum or Plasma Ferritin Lab Routine Deficiency of multiple nutrient elements Intestinal malabsorption, unspecified type History of gastric bypass Primary hypertension MOE on CPAP Morbid obesity with BMI of 45.0-49.9, adult ([facility]) Expected: 12/27/2023, Expires: 11/14/2024 [facility] Comment on above: Expected: 12/27/2023, Expires: Start: 12-27-2023 End: 11-14-2024 Folate [Mass/volume] in Serum or Plasma Folate Lab Routine Deficiency of multiple nutrient elements Intestinal malabsorption, unspecified type History of gastric bypass Primary hypertension MOE on CPAP Morbid obesity with BMI of 45.0-49.9, adult ([facility]) Expected: 12/27/2023, Expires: 11/14/2024 [employer] [facility] Comment on above: Expected: 12/27/2023, Expires: Start: 12-27-2023 End: 11-14-2024 Iron and Iron binding capacity panel - Serum or Plasma Iron Lab Routine Deficiency of multiple nutrient elements Intestinal malabsorption, unspecified type History of gastric bypass Primary hypertension MOE on CPAP Morbid obesity with BMI of 45.0-49.9, adult ([facility]) Expected: 12/27/2023, Expires: 11/14/2024 [employer] [facility] Comment on above: Expected: 12/27/2023, Expires: Start: 12-27-2023 End: 11-14-2024 Lipid 1996 panel - Serum or Plasma Lipid panel Lab Routine Deficiency of multiple nutrient elements Intestinal malabsorption, unspecified type History of gastric bypass Primary hypertension MOE on CPAP Morbid obesity with BMI of 45.0-49.9, adult ([facility]) Expected: 12/27/2023, Expires: 11/14/2024 [facility] Comment on above: Expected: 12/27/2023, Expires: Start: 12-27-2023 End: 11-14-2024 Magnesium [Mass/volume] in Serum or Plasma Magnesium Lab Routine Deficiency of multiple nutrient elements Intestinal malabsorption, unspecified type History of gastric bypass Primary hypertension MOE on CPAP Morbid obesity with BMI of 45.0-49.9, adult ([facility]) Expected: 12/27/2023, Expires: 11/14/2024 [facility] Comment on above: Expected: 12/27/2023, Expires: Start: 12-27-2023 End: 11-14-2024 Vitamin B1, whole blood ([facility]) Vitamin B1, whole blood ([facility]) Lab Routine Deficiency of multiple nutrient elements Intestinal malabsorption, unspecified type History of gastric bypass Primary hypertension MOE on CPAP Morbid obesity with BMI of 45.0-49.9, adult (HCC) Expected: 12/27/2023, Expires: 11/14/2024 [facility] Comment on above: Expected: 12/27/2023, Expires: Start: 12-27-2023 End: 11-14-2024 Zinc (Sendout) Zinc (Sendout) Lab Routine Deficiency of multiple nutrient elements Intestinal malabsorption, unspecified type History of gastric bypass Primary hypertension MOE on CPAP Morbid obesity with BMI of 45.0-49.9, adult (HCC) Expected: 12/27/2023, Expires: 11/14/2024 [facility] Comment on above: Expected: 12/27/2023, Expires: Start: 12-15-2023 Diabetes mellitus screening Diabetes Screening [facility] Start: 11-15-2023 End: 11-15-2023 Patient encounter procedure [facility] Start: 11-05-2023 End: 11-05-2023 Clinical Support 11/05/2023 8:00 AM EDT Clinical Support [facility] [address] [place] [id number] Carmen Hirsch PA-C [address] [facility] [address] [place] [address] [facility] Start: 10-24-2023 COVID-19 () COVID-19 () [facility] Start: 10-24-2023 COVID-19 Vaccine () COVID-19 Vaccine () [facility] Start: 10-24-2023 COVID-19 Vaccine ( season) COVID-19 Vaccine () [facility] Start: 10-24-2023 Influenza vaccination [facility] Start: 10-06-2023 End: 08-05-2024 25-hydroxyvitamin D3 [Mass/volume] in Serum or Plasma Vitamin D Deficiency Screening (Vit D 25) Lab Routine Deficiency of multiple nutrient elements Intestinal malabsorption, unspecified type MOE on CPAP Primary hypertension Morbid obesity with BMI of 50.0-59.9, adult (HCC) History of Sandra-en-Y gastric bypass Expected: 10/06/2023 (Approximate), Expires: 08/05/2024 [facility] Comment on above: Expected: 10/06/2023 (Approximate), Expi res: 08/05/2024 Start: 10-06-2023 End: 08-05-2024 CBC panel - Blood by Automated count CBC Lab Routine Deficiency of multiple nutrient elements Intestinal malabsorption, unspecified type MOE on CPAP Primary hypertension Morbid obesity with BMI of 50.0-59.9, adult (HCC) History of Sandra-en-Y gastric bypass Expected: 10/06/2023 (Approximate), Expires: 08/05/2024 [facility] Comment on above: Expected: 10/06/2023 (Approximate), Expi res: 08/05/2024 Start: 10-06-2023 End: 08-05-2024 Cobalamin (Vitamin B12) [Mass/volume] in Serum or Plasma Vitamin B12 Lab Routine Deficiency of multiple nutrient elements Intestinal malabsorption, unspecified type MOE on CPAP Primary hypertension Morbid obesity with BMI of 50.0-59.9, adult (HCC) History of Sandra-en-Y gastric bypass Expected: 10/06/2023 (Approximate), Expires: 08/05/2024 [facility] Comment on above: Expected: 10/06/2023 (Approximate), Expi res: 08/05/2024 Start: 10-06-2023 End: 08-05-2024 Comprehensive metabolic 1998 panel - Serum or Plasma Comprehensive metabolic panel Lab Routine Deficiency of multiple nutrient elements Intestinal malabsorption, unspecified type MOE on CPAP Primary hypertension Morbid obesity with BMI of 50.0-59.9, adult (HCC) History of Sandra-en-Y gastric bypass Expected: 10/06/2023 (Approximate), Expires: 08/05/2024 [facility] Comment on above: Expected: 10/06/2023 (Approximate), Expi res: 08/05/2024 Start: 10-06-2023 End: 08-05-2024 Ferritin [Mass/volume] in Serum or Plasma Ferritin Lab Routine Deficiency of multiple nutrient elements Intestinal malabsorption, unspecified type MOE on CPAP Primary hypertension Morbid obesity with BMI of 50.0-59.9, adult (HCC) History of Sandra-en-Y gastric bypass Expected: 10/06/2023 (Approximate), Expires: 08/05/2024 [facility] Comment on above: Expected: 10/06/2023 (Approximate), Expi res: 08/05/2024 Start: 10-06-2023 End: 08-05-2024 Folate [Mass/volume] in Serum or Plasma Folate Lab Routine Deficiency of multiple nutrient elements Intestinal malabsorption, unspecified type MOE on CPAP Primary hypertension Morbid obesity with BMI of 50.0-59.9, adult (HCC) History of Sandra-en-Y gastric bypass Expected: 10/06/2023 (Approximate), Expires: 08/05/2024 [facility] Comment on above: Expected: 10/06/2023 (Approximate), Expi res: 08/05/2024 Start: 10-06-2023 End: 08-05-2024 Iron and Iron binding capacity panel - Serum or Plasma Iron Lab Routine Deficiency of multiple nutrient elements Intestinal malabsorption, unspecified type MOE on CPAP Primary hypertension Morbid obesity with BMI of 50.0-59.9, adult (HCC) History of Sandra-en-Y gastric bypass Expected: 10/06/2023 (Approximate), Expires: 08/05/2024 [facility] Comment on above: Expected: 10/06/2023 (Approximate), Expi res: 08/05/2024 Start: 10-06-2023 End: 08-05-2024 Lipid 1996 panel - Serum or Plasma Lipid panel Lab Routine Deficiency of multiple nutrient elements Intestinal malabsorption, unspecified type MOE on CPAP Primary hypertension Morbid obesity with BMI of 50.0-59.9, adult (HCC) History of Sandra-en-Y gastric bypass Expected: 10/06/2023 (Approximate), Expires: 08/05/2024 [employer] Comment on above: Expected: 10/06/2023 (Approximate), Expi res: 08/05/2024 Start: 10-06-2023 End: 08-05-2024 Magnesium [Mass/volume] in Serum or Plasma Magnesium Lab Routine Deficiency of multiple nutrient elements Intestinal malabsorption, unspecified type MOE on CPAP Primary hypertension Morbid obesity with BMI of 50.0-59.9, adult (HCC) History of Sandra-en-Y gastric bypass Expected: 10/06/2023 (Approximate), Expires: 08/05/2024 [employer] Comment on above: Expected: 10/06/2023 (Approximate), Expi res: 08/05/2024 Start: 10-06-2023 End: 08-05-2024 Vitamin B1, whole blood ([facility]) Vitamin B1, whole blood ([facility]) Lab Routine Deficiency of multiple nutrient elements Intestinal malabsorption, unspecified type MOE on CPAP Primary hypertension Morbid obesity with BMI of 50.0-59.9, adult (HCC) History of Sandra-en-Y gastric bypass Expected: 10/06/2023 (Approximate), Expires: 08/05/2024 [employer] Comment on above: Expected: 10/06/2023 (Approximate), Expi res: 08/05/2024 Start: 10-06-2023 End: 08-05-2024 Zinc (Sendout) Zinc (Sendout) Lab Routine Deficiency of multiple nutrient elements Intestinal malabsorption, unspecified type MOE on CPAP Primary hypertension Morbid obesity with BMI of 50.0-59.9, adult (HCC) History of Sandra-en-Y gastric bypass Expected: 10/06/2023 (Approximate), Expires: 08/05/2024 [facility] Work Phone: Comment on above: Expected: 10/06/2023 (Approximate), Expi res: 08/05/2024 Start: 09-20-2023 End: 09-19-2024 Home sleep test [facility] Routine Obstructive sleep apnea (adult) (pediatric) Expected: 09/20/2023 (Approximate), Expires: 09/19/2024 [facility] Work Phone: Comment on above: Expected: 09/20/2023 (Approximate), Expi res: 09/19/2024 Start: 09-13-2023 End: 09-13-2023 Clinical Support 09/13/2023 10:00 AM EDT Clinical Support [facility] [address] [place] [id number] Carmen Hirsch PA-C [address] [place] [address] [facility] Start: 08-23-2023 End: 08-22-2024 Home sleep test Home sleep test [facility] Routine MOE (obstructive sleep apnea) Expected: 08/23/2023 (Approximate), Expires: 08/22/2024 [facility] Work Phone: Comment on above: Expected: 08/23/2023 (Approximate), Expi res: 08/22/2024 Start: 08-23-2023 End: 08-23-2023 Patient encounter procedure 08/23/2023 11:40 AM EDT Office Visit [facility] [address] [place] [phone] Carmen Hirsch PA-C [address] [place] [address] [facility] Start: 08-23-2023 End: 08-23-2023 Patient encounter procedure 08/23/2023 8:30 AM EDT Office Visit [facility] [address] [place] [phone] Abdoul [place] MD [address] [place], [place] [id number] [facility] Start: 08-17-2023 End: 06-16-2024 CBC panel - Blood by Automated count CBC Lab Routine MOE on CPAP Primary hypertension Prediabetes Deficiency of multiple nutrient elements Intestinal malabsorption, unspecified type Morbid obesity with BMI of 50.0-59.9, adult (HCC) Expected: 08/17/2023 (Approximate), Expires: 06/16/2024 [facility] Comment on above: Expected: 08/17/2023 (Approximate), Expi res: 06/16/2024 Start: 08-17-2023 End: 06-16-2024 Cobalamin (Vitamin B12) [Mass/volume] in Serum or Plasma Vitamin B12 Lab Routine MOE on CPAP Primary hypertension Prediabetes Deficiency of multiple nutrient elements Intestinal malabsorption, unspecified type Morbid obesity with BMI of 50.0-59.9, adult (HCC) Expected: 08/17/2023 (Approximate), Expires: 06/16/2024 [facility] Comment on above: Expected: 08/17/2023 (Approximate), Expi res: 06/16/2024 Start: 08-17-2023 End: 06-16-2024 Comprehensive metabolic 1998 panel - Serum or Plasma Comprehensive metabolic panel Lab Routine MOE on CPAP Primary hypertension Prediabetes Deficiency of multiple nutrient elements Intestinal malabsorption, unspecified type Morbid obesity with BMI of 50.0-59.9, adult (HCC) Expected: 08/17/2023 (Approximate), Expires: 06/16/2024 [facility] Comment on above: Expected: 08/17/2023 (Approximate), Expi res: 06/16/2024 Start: 08-17-2023 End: 06-16-2024 Ferritin [Mass/volume] in Serum or Plasma Ferritin Lab Routine MOE on CPAP Primary hypertension Prediabetes Deficiency of multiple nutrient elements Intestinal malabsorption, unspecified type Morbid obesity with BMI of 50.0-59.9, adult (HCC) Expected: 08/17/2023 (Approximate), Expires: 06/16/2024 [facility] Comment on above: Expected: 08/17/2023 (Approximate), Expi res: 06/16/2024 Start: 08-17-2023 End: 06-16-2024 Folate [Mass/volume] in Serum or Plasma Folate Lab Routine MOE on CPAP Primary hypertension Prediabetes Deficiency of multiple nutrient elements Intestinal malabsorption, unspecified type Morbid obesity with BMI of 50.0-59.9, adult (HCC) Expected: 08/17/2023 (Approximate), Expires: 06/16/2024 [facility] Comment on above: Expected: 08/17/2023 (Approximate), Expi res: 06/16/2024 Start: 08-17-2023 End: 06-16-2024 Iron and Iron binding capacity panel - Serum or Plasma Iron Lab Routine MOE on CPAP Primary hypertension Prediabetes Deficiency of multiple nutrient elements Intestinal malabsorption, unspecified type Morbid obesity with BMI of 50.0-59.9, adult (HCC) Expected: 08/17/2023 (Approximate), Expires: 06/16/2024 [facility] Comment on above: Expected: 08/17/2023 (Approximate), Expi res: 06/16/2024 Start: 08-17-2023 End: 06-16-2024 Magnesium [Mass/volume] in Serum or Plasma Magnesium Lab Routine MOE on CPAP Primary hypertension Prediabetes Deficiency of multiple nutrient elements Intestinal malabsorption, unspecified type Morbid obesity with BMI of 50.0-59.9, adult (HCC) Expected: 08/17/2023 (Approximate), Expires: 06/16/2024 [facility] Comment on above: Expected: 08/17/2023 (Approximate), Expi res: 06/16/2024 Start: 08-17-2023 End: 06-16-2024 Zinc Zinc Lab Routine MOE on CPAP Primary hypertension Prediabetes Deficiency of multiple nutrient elements Intestinal malabsorption, unspecified type Morbid obesity with BMI of 50.0-59.9, adult (HCC) Expected: 08/17/2023 (Approximate), Expires: 06/16/2024 [facility] Work Phone: Comment on above: Expected: 08/17/2023 (Approximate), Expi res: 06/16/2024 Start: 08-11-2023 End: 08-11-2023 Patient encounter procedure 08/11/2023 12:45 PM EDT Office Visit [facility] [address] [place] [address] Miley Moise PA [address] [place] [address] [facility] Start: 07-27-2023 End: 07-27-2023 Patient encounter procedure 07/27/2023 12:40 PM EDT Office Visit [facility] [address] [place] [phone] Carmen Hirsch PA-C [address] [place] [address] [facility] Start: 07-05-2023 End: 07-05-2023 Patient encounter procedure [facility] Start: 06-10-2023 End: 06-10-2023 Patient encounter procedure 06/10/2023 7:45 AM EDT Office Visit [facility] [address] [place] [phone] Memo Campbell MD [address] [place] [address] [facility] Start: 06-09-2023 End: 05-25-2024 CBC panel - Blood by Automated count CBC Lab Routine Deficiency of multiple nutrient elements Intestinal malabsorption, unspecified type Morbid obesity with BMI of 60.0-69.9, adult (HCC) Expected: 06/09/2023 (Approximate), Expires: 05/25/2024 [facility] Comment on above: Expected: 06/09/2023 (Approximate), Expi res: 05/25/2024 Start: 06-09-2023 End: 05-25-2024 Cobalamin (Vitamin B12) [Mass/volume] in Serum or Plasma Vitamin B12 Lab Routine Deficiency of multiple nutrient elements Intestinal malabsorption, unspecified type Morbid obesity with BMI of 60.0-69.9, adult (HCC) Expected: 06/09/2023 (Approximate), Expires: 05/25/2024 [facility] Comment on above: Expected: 06/09/2023 (Approximate), Expi res: 05/25/2024 Start: 06-09-2023 End: 05-25-2024 Comprehensive metabolic 1998 panel - Serum or Plasma Comprehensive metabolic panel Lab Routine Deficiency of multiple nutrient elements Intestinal malabsorption, unspecified type Morbid obesity with BMI of 60.0-69.9, adult (HCC) Expected: 06/09/2023 (Approximate), Expires: 05/25/2024 [facility] Comment on above: Expected: 06/09/2023 (Approximate), Expi res: 05/25/2024 Start: 06-09-2023 End: 05-25-2024 Ferritin [Mass/volume] in Serum or Plasma Ferritin Lab Routine Deficiency of multiple nutrient elements Intestinal malabsorption, unspecified type Morbid obesity with BMI of 60.0-69.9, adult (HCC) Expected: 06/09/2023 (Approximate), Expires: 05/25/2024 [facility] Comment on above: Expected: 06/09/2023 (Approximate), Expi res: 05/25/2024 Start: 06-09-2023 End: 05-25-2024 Folate [Mass/volume] in Serum or Plasma Folate Lab Routine Deficiency of multiple nutrient elements Intestinal malabsorption, unspecified type Morbid obesity with BMI of 60.0-69.9, adult (HCC) Expected: 06/09/2023 (Approximate), Expires: 05/25/2024 [facility] Comment on above: Expected: 06/09/2023 (Approximate), Expi res: 05/25/2024 Start: 06-09-2023 End: 05-25-2024 Iron and Iron binding capacity panel - Serum or Plasma Iron Lab Routine Deficiency of multiple nutrient elements Intestinal malabsorption, unspecified type Morbid obesity with BMI of 60.0-69.9, adult (HCC) Expected: 06/09/2023 (Approximate), Expires: 05/25/2024 [facility] Comment on above: Expected: 06/09/2023 (Approximate), Expi res: 05/25/2024 Start: 06-09-2023 End: 05-25-2024 Magnesium [Mass/volume] in Serum or Plasma Magnesium Lab Routine Deficiency of multiple nutrient elements Intestinal malabsorption, unspecified type Morbid obesity with BMI of 60.0-69.9, adult (HCC) Expected: 06/09/2023 (Approximate), Expires: 05/25/2024 [facility] Comment on above: Expected: 06/09/2023 (Approximate), Expi res: 05/25/2024 Start: 06-09-2023 End: 05-25-2024 Zinc Zinc Lab Routine Deficiency of multiple nutrient elements Intestinal malabsorption, unspecified type Morbid obesity with BMI of 60.0-69.9, adult (HCC) Expected: 06/09/2023 (Approximate), Expires: 05/25/2024 [facility] Work Phone: Comment on above: Expected: 06/09/2023 (Approximate), Expi res: 05/25/2024 Start: 05-27-2023 End: 05-27-2023 Patient encounter procedure 05/27/2023 8:25 AM EDT Office Visit [facility] [address] [place] [address] [address] [place] [address] Memo Campbell MD [address] [place] [address] [address] [place] [address] [facility] Start: 05-26-2023 End: 02-25-2024 25-hydroxyvitamin D3 [Mass/volume] in Serum or Plasma Vitamin D Deficiency Screening (Vit D 25) Lab Routine Vitamin D deficiency Expected: 05/26/2023 (Approximate), Expires: 02/25/2024 [facility] Work Phone: Comment on above: Expected: 05/26/2023 (Approximate), Expi res: 02/25/2024 Start: 05-26-2023 End: 02-25-2024 Cobalamin (Vitamin B12) [Mass/volume] in Serum or Plasma Vitamin B12 Lab Routine Low vitamin B12 level Expected: 05/26/2023 (Approximate), Expires: 02/25/2024 [facility] Comment on above: Expected: 05/26/2023 (Approximate), Expi res: 02/25/2024 Start: 05-20-2023 End: 05-20-2023 Patient encounter procedure 05/20/2023 7:10 AM EDT Office Visit [facility] [address] [facility] [address] [place] [address] Memo Campbell MD [address] [place] [address] [address] [place] [address] [facility] Start: 05-10-2023 End: 05-10-2023 Admission to same day surgery center 05/10/2023 1:30 PM EDT - 05/10/2023 4:30 PM EDT Surgery [facility] MAIN OR [address] [place] [phone] Memo Campbell MD [address] [place], [place] [id number] LAPAROSCOPIC SANDRA-EN-Y GASTRIC BYPASS WITH LIVER WEDGE BIOPSY, POSSIBLE OPEN [75928 (CPT )] [facility] MAIN OR Comment on above: LAPAROSCOPIC SANDRA-EN-Y GASTRIC BYPASS WI TH LIVER WEDGE BIOPSY, POSSIBLE OPEN [33853 (CPT )] Start: 05-10-2023 End: 05-10-2023 Anesthesia consultation 05/10/2023 1:30 PM EDT Anesthesia Event [facility] [address] [place] [address] Rosalva Sandoval, HAND SPINNER - PLANT ECOLOGIST [address] [place] [address] [facility] MAIN OR Start: 05-10-2023 End: 05-10-2023 Laps gstr rstcv px w/byp sandra-en-y limb <150 cm LAPAROSCOPIC SANDRA-EN-Y GASTRIC BYPASS WITH LIVER WEDGE BIOPSY POSSIBLE OPEN Morbid (severe) obesity due to excess calories (HCC) 05/10/2023 1:30 PM EDT [facility] Operating Room Start: 05-10-2023 Subsequent hospital visit by physician 05/10/2023 1:30 PM EDT Hospital Encounter [facility] [address] [place] [phone] Memo Campbell MD [address] [place], [place] [phone] [facility] MAIN OR Start: 05-10-2023 End: 05-10-2023 Unlis laparoscopic procedure liver UNLISTED LAPAROSCOPIC PROCEDURE LIVER Morbid (severe) obesity due to excess calories (HCC) 05/10/2023 1:30 PM EDT [facility] Operating Room Start: 05-03-2023 End: 05-03-2023 Admission to establishment 05/03/2023 11:30 AM EDT Pre-Admission Testing [facility]Ad[facility] Testing [address] [facility] [place] [address] [facility] Pre-[facility]mit Testing Start: 03-17-2023 End: 12-16-2023 25-hydroxyvitamin D3 [Mass/volume] in Serum or Plasma Vitamin D Deficiency Screening (Vit D 25) Lab Routine Vitamin D deficiency Expected: 03/17/2023 (Approximate), Expires: 12/16/2023 [facility] Work Phone: Comment on above: Expected: 03/17/2023 (Approximate), Expi res: 12/16/2023 Start: 03-17-2023 End: 12-16-2023 Cobalamin (Vitamin B12) [Mass/volume] in Serum or Plasma Vitamin B12 Lab Routine Low vitamin B12 level Expected: 03/17/2023 (Approximate), Expires: 12/16/2023 [facility] Comment on above: Expected: 03/17/2023 (Approximate), Expi res: 12/16/2023 Start: 03-17-2023 End: 12-16-2023 Ferritin [Mass/volume] in Serum or Plasma Ferritin Lab Routine Low serum ferritin level Low serum iron Expected: 03/17/2023 (Approximate), Expires: 12/16/2023 [facility] Comment on above: Expected: 03/17/2023 (Approximate), Expi res: 12/16/2023 Start: 03-17-2023 End: 12-16-2023 Iron and Iron binding capacity panel - Serum or Plasma Iron Lab Routine Low serum ferritin level Low serum iron Expected: 03/17/2023 (Approximate), Expires: 12/16/2023 [facility] Comment on above: Expected: 03/17/2023 (Approximate), Expi res: 12/16/2023 Start: 03-17-2023 End: 12-16-2023 Protein [Mass/volume] in Serum or Plasma Protein, total Lab Routine Abnormal serum total protein level Expected: 03/17/2023 (Approximate), Expires: 12/16/2023 [facility] Comment on above: Expected: 03/17/2023 (Approximate), Expi res: 12/16/2023 Start: 02-05-2023 End: 02-05-2023 Patient encounter procedure 02/05/2023 12:40 PM EST Office Visit [facility] [address] [place] [phone] Mary Dias MD [address] [place], [place] [phone] [facility] Start: 01-25-2023 End: 01-25-2023 Patient encounter procedure 01/25/2023 10:40 AM EST Office Visit [facility] [address] [place] [phone] Carmen Hirsch PA-C [address] [place], [place] [phone] [facility] Start: 01-18-2023 End: 01-18-2023 Patient encounter procedure 01/18/2023 9:30 AM EST Office Visit [facility] [address] [place] [phone] Mary Dias MD [address] [place], [place] [phone] [facility] Start: 01-12-2023 End: 01-12-2023 Patient encounter procedure 01/12/2023 1:00 PM EST Appointment [facility] Non-Invasive Cardiology [address] [place] [phone] Ravi Abreu MD [address] [place] [id number] [facility] Non-Invasive Cardiology Start: 01-12-2023 End: 01-12-2023 Admission to same day surgery center [facility] Comment on above: EGD WITH BIOPSY [00184 (CPT )] Start: 01-12-2023 End: 01-12-2023 Egd transoral biopsy single/multiple [facility] Start: 01-12-2023 Subsequent hospital visit by physician [facility] Start: 01-08-2023 End: 01-08-2023 Patient encounter procedure 01/08/2023 2:00 PM EST Office Visit [facility] [address] [place] [address] Delphine Sanchez MD [address] [place], [place] [phone] [facility] Start: 12-22-2022 End: 12-22-2024 US Heart Transthoracic Transthoracic echocardiogram (TTE) complete with contrast, bubble, strain, and 3D PRN CV Echocardiography Routine Paroxysmal atrial fibrillation (HCC) Expected: 12/22/2022 (Approximate), Expires: 12/22/2024 [facility] Work Phone: Comment on above: Expected: 12/22/2022 (Approximate), Expi res: 12/22/2024 Start: 12-14-2022 End: 12-14-2022 Patient encounter procedure 12/14/2022 8:50 AM EDT Office Visit [facility] [address] [place] [address] Mary Dias MD [address] [place] [address] [facility] Start: 11-02-2022 End: 11-02-2022 Clinical Support [facility] Start: 10-23-2022 COVID-19 Vaccine ( season) COVID-19 Vaccine ( season) [facility] Start: 10-23-2022 Influenza vaccination Influenza Vaccine (#1) [facility] Start: 10-07-2022 End: 10-01-2023 25-hydroxyvitamin D3 [Mass/volume] in Serum or Plasma Vitamin D Deficiency Screening (Vit D 25) Lab Routine Prediabetes Morbid obesity with BMI of 60.0-69.9, adult (HCC) Chronic midline low back pain without sciatica Daytime sleepiness Pre-operative laboratory examination Expected: 10/07/2022, Expires: 10/01/2023 [facility] Comment on above: Expected: 10/07/2022, Expires: Start: 10-07-2022 End: 10-01-2023 CBC panel - Blood by Automated count CBC Lab Routine Prediabetes Morbid obesity with BMI of 60.0-69.9, adult (HCC) Chronic midline low back pain without sciatica Daytime sleepiness Pre-operative laboratory examination Expected: 10/07/2022, Expires: 10/01/2023 [employer] Comment on above: Expected: 10/07/2022, Expires: Start: 10-07-2022 End: 10-01-2023 Cobalamin (Vitamin B12) [Mass/volume] in Serum or Plasma Vitamin B12 Lab Routine Prediabetes Morbid obesity with BMI of 60.0-69.9, adult (HCC) Chronic midline low back pain without sciatica Daytime sleepiness Pre-operative laboratory examination Expected: 10/07/2022, Expires: 10/01/2023 [employer] Comment on above: Expected: 10/07/2022, Expires: Start: 10-07-2022 End: 10-01-2023 Comprehensive metabolic 1998 panel - Serum or Plasma Comprehensive metabolic panel Lab Routine Prediabetes Morbid obesity with BMI of 60.0-69.9, adult (HCC) Chronic midline low back pain without sciatica Daytime sleepiness Pre-operative laboratory examination Expected: 10/07/2022, Expires: 10/01/2023 [employer] Comment on above: Expected: 10/07/2022, Expires: Start: 10-07-2022 End: 10-01-2023 Ferritin [Mass/volume] in Serum or Plasma Ferritin Lab Routine Prediabetes Morbid obesity with BMI of 60.0-69.9, adult (HCC) Chronic midline low back pain without sciatica Daytime sleepiness Pre-operative laboratory examination Expected: 10/07/2022, Expires: 10/01/2023 [employer] Comment on above: Expected: 10/07/2022, Expires: Start: 10-07-2022 End: 10-01-2023 Folate [Mass/volume] in Serum or Plasma Folate Lab Routine Prediabetes Morbid obesity with BMI of 60.0-69.9, adult (HCC) Chronic midline low back pain without sciatica Daytime sleepiness Pre-operative laboratory examination Expected: 10/07/2022, Expires: 10/01/2023 [employer] Comment on above: Expected: 10/07/2022, Expires: Start: 10-07-2022 End: 10-01-2023 Hemoglobin A1c/Hemoglobin.total in Blood Hemoglobin A1c Lab Routine Prediabetes Morbid obesity with BMI of 60.0-69.9, adult (HCC) Chronic midline low back pain without sciatica Daytime sleepiness Pre-operative laboratory examination Expected: 10/07/2022, Expires: 10/01/2023 [facility] Work Phone: Comment on above: Expected: 10/07/2022, Expires: Start: 10-07-2022 End: 10-01-2023 Iron and Iron binding capacity panel - Serum or Plasma Iron Lab Routine Prediabetes Morbid obesity with BMI of 60.0-69.9, adult (HCC) Chronic midline low back pain without sciatica Daytime sleepiness Pre-operative laboratory examination Expected: 10/07/2022, Expires: 10/01/2023 [employer] Comment on above: Expected: 10/07/2022, Expires: Start: 10-07-2022 End: 10-01-2023 Lipid 1996 panel - Serum or Plasma Lipid panel Lab Routine Prediabetes Morbid obesity with BMI of 60.0-69.9, adult (HCC) Chronic midline low back pain without sciatica Daytime sleepiness Pre-operative laboratory examination Expected: 10/07/2022, Expires: 10/01/2023 [employer] [facility] Comment on above: Expected: 10/07/2022, Expires: Start: 10-07-2022 End: 10-01-2023 Magnesium [Mass/volume] in Serum or Plasma Magnesium Lab Routine Prediabetes Morbid obesity with BMI of 60.0-69.9, adult (HCC) Chronic midline low back pain without sciatica Daytime sleepiness Pre-operative laboratory examination Expected: 10/07/2022, Expires: 10/01/2023 [employer] Comment on above: Expected: 10/07/2022, Expires: Start: 10-07-2022 End: 10-01-2023 Thyrotropin [Units/volume] in Serum or Plasma TSH Lab Routine Prediabetes Morbid obesity with BMI of 60.0-69.9, adult (HCC) Chronic midline low back pain without sciatica Daytime sleepiness Pre-operative laboratory examination Expected: 10/07/2022, Expires: 10/01/2023 [employer] Comment on above: Expected: 10/07/2022, Expires: 4 Start: 10-07-2022 End: 10-01-2023 Vitamin B1, whole blood Vitamin B1, whole blood Lab Routine Prediabetes Morbid obesity with BMI of 60.0-69.9, adult (HCC) Chronic midline low back pain without sciatica Daytime sleepiness Pre-operative laboratory examination Expected: 10/07/2022, Expires: 10/01/2023 [employer] Comment on above: Expected: 10/07/2022, Expires: 4 Start: 10-07-2022 End: 10-01-2023 Zinc Zinc Lab Routine Prediabetes Morbid obesity with BMI of 60.0-69.9, adult (HCC) Chronic midline low back pain without sciatica Daytime sleepiness Pre-operative laboratory examination Expected: 10/07/2022, Expires: 10/01/2023 [employer] Comment on above: Expected: 10/07/2022, Expires: 4 Start: 09-03-2022 Patient referral [facility] Work Phone: Start: 06-11-2022 Colonoscopy w/biopsy single/multiple COLONOSCOPY AND BIOPSY [facility] Start: 06-11-2022 Egd transoral biopsy single/multiple EGD BIOPSY SINGLE/MULTIPLE [facility] Start: 06-11-2022 Patient discharge [facility] Start: 05-07-2022 Protein measurement [facility] Start: 03-11-2022 Chlamydia deoxyribonucleic acid detection [facility] Start: 03-11-2022 Beta 2 glycoprotein 1 Ab IgA and IgG and IgM panel - Serum [facility] Start: 03-11-2022 Cardiolipin IgA and IgG and IgM panel - Serum [facility] Start: 03-11-2022 Cardiolipin IgG and IgM panel - Serum [facility] Start: 03-11-2022 Lupus anticoagulant assay [facility] Start: 01-02-2021 COVID-19 Vaccine (5 - Booster for Moderna series) COVID-19 Vaccine (5 - Booster for Moderna series) [facility] Start: 01-02-2021 COVID-19 Vaccine (5 - Moderna series) COVID-19 Vaccine (5 - Moderna series) [facility] Start: 06-01-2018 Varicella (1 of 2 - 13+ 2-dose series) Varicella (1 of 2 - 13+ 2-dose series) [facility] Start: 06-01-2018 Varicella vaccination [facility] Start: 09-21-2016 Microscopic observation [Identifier] in Cervix by Cyto stain Pap Smear [facility] Start: 09-21-2016 Screening for malignant neoplasm of cervix Pap Smear [facility] Start: 09-21-2014 Hepatitis A Vaccines (1 of 2 - Risk 2-dose series) Hepatitis A Vaccines (1 of 2 - Risk 2-dose series) [facility] Start: 09-21-2013 Hepatitis C screening Hepatitis C Screening [facility] Start: 2011 MenB (1 of 2 - MenB 2-Dose Series Bexsero) MenB (1 of 2 - MenB 2-Dose Series Bexsero) [facility] Start: 2007 Depression Monitoring Depression Monitoring [facility] Start: 2007 Depression Screening Depression Screening [facility] Start: 09-21-2006 DTaP/Tdap/Td Vaccines (6 - Tdap) DTaP/Tdap/Td Vaccines (6 - Tdap) [facility] Start: 09-21-2006 HPV Vaccines (1 - 2-dose series) HPV Vaccines (1 - 2-dose series) [facility] Start: 09-21-2006 Tetanus Diphtheria and Pertussis Vaccines (6 - Tdap) Tetanus Diphtheria and Pertussis Vaccines (6 - Tdap) [facility] Start: 1995 HIV screening HIV Screening [facility] Start: 1995 Lipid panel Lipid Panel [facility] Bacteria identified in Blood by Culture [facility] End: 10-27-2023 Bacteria identified in Urine by Culture [facility] Work Phone: Comment on above: Once (Lab) for 1 Occurrences starting until 10/27/2023 Beta 2 glycoprotein 1 IgA Ab [Presence] in Serum [facility] Beta 2 glycoprotein 1 IgG Ab [Presence] in Serum [facility] Beta 2 glycoprotein 1 IgM Ab [Presence] in Serum [facility] End: 07-19-2024 Beta 2 Glycoprotein IgG, IgM, IgA [facility] Comment on above: 1 Occurrences starting 07/19/2024 until 07/19/2024 End: 07-19-2024 Cardiolipin Ab [facility] Work Phone: Comment on above: 1 Occurrences starting 07/19/2024 until 07/19/2024 Cardiolipin IgA Ab [Units/volume] in Serum by Immunoassay [facility] Cardiolipin IgG Ab [Units/volume] in Serum or Plasma [facility] Cardiolipin IgM Ab [Units/volume] in Serum or Plasma [facility] Choriogonadotropin ( test) [Presence] in Serum or Plasma [facility] Clostridioides diffi cile DNA [Presence] in Unspecified specimen by [place] with probe detection [facility] End: 07-19-2024 Dilute RVVT SCREEN RATIO WITH REFLEX [facility] Comment on above: 1 Occurrences starting 07/19/2024 until 07/19/2024 ECG 12 lead - CLINIC PERFORMED ECG 12 lead - CLINIC PERFORMED CV ECG Routine Paroxysmal atrial fibrillation (HCC) 01/08/2023 2:06 PM [employer] Work Phone: ECG 12 lead - CLINIC PERFORMED ECG 12 lead - CLINIC PERFORMED CV ECG Routine Paroxysmal atrial fibrillation (HCC) 02/11/2024 9:38 AM [employer] Work Phone: Electrocardiographic procedure [facility] Erythrocyte mean corpuscular volume determination [facility] Gastrointestinal pat hogens panel - Stool by [place] with probe detection [facility] Hematocrit [Volume Fraction] of Blood [facility] Hemoglobin [Mass/vol ume] in Blood [facility] Lactoferrin [Presenc e] in Stool by Immunoassay [facility] Leukocytes [#/volume ] in Blood [facility] Lupus anticoagulant neutralization platelet [Time] in Platelet poor plasma by Coagulation assay [facility] Mean corpuscular hem oglobin concentration determination [facility] Mean corpuscular hem oglobin determination [facility] Neisseria gonorrhoea e rRNA [Presence] in Unspecified specimen by [place]ANCE with probe detection [facility] Neutrophil count [facility] Neutrophil percent differential count [facility] End: 10-29-2023 Nuclear Ab [Titer] in Serum by Immunofluorescence [employer] Work Phone: Comment on above: Once (Lab) for 1 Occurrences starting until 10/29/2023 Partial thromboplast in time ratio [facility] End: 10-27-2023 Pathology Review [facility] Work Phone: Comment on above: Once (Lab) for 1 Occurrences starting until 10/27/2023, 1 completed Patient Education [facility] Work Phone: Patient referral [facility] Work Phone: PCR test for Chlamyd ia trachomatis [facility] Platelets [#/volume] in Blood [facility] Protein measurement [facility] Red blood cell count [facility] Red cell distributio n width determination [facility] End: 10-29-2023 Smooth muscle antibody with reflex Titer [employer] Comment on above: Once (Lab) for 1 Occurrences starting until 10/29/2023 Thrombin time [facility] Tissue exam [employer] Work Phone: Comment on above: Release Upon Ordering for 1 Occurrences starting 01/12/2023 Tissue exam [employer] Work Phone: Comment on above: Release Upon Ordering for 1 Occurrences starting 05/10/2023, 1 completed Urine culture [facility] Vitamin B1, whole blood Vitamin B1, whole blood Lab Routine Prediabetes Morbid obesity with BMI of 60.0-69.9, adult (HCC) Chronic midline low back pain without sciatica Daytime sleepiness Pre-operative laboratory examination 12/14/2022 10:37 AM EDT [employer] End: 10-30-2023 Vitamin B1, whole blood Vitamin B1, whole blood Lab Routine Morning draw (Lab) for 1 Occurrences starting 10/30/2023 until 10/30/2023 [facility] Work Phone: Comment on above: Morning draw (Lab) for 1 Occurrences sta rting 10/30/2023 until 10/30/2023 End: 11-01-2023 Vitamin B1, whole blood [employer] Comment on above: Once (Lab) for 1 Occurrences starting until 11/01/2023 Vitamin B1, whole blood Vitamin B1, whole blood Lab Routine 10/30/2023 1:38 PM EDT [employer] Vitamin B1, whole bl ood ([facility]) Vitamin B1, whole blood ([facility]) Lab Routine Deficiency of multiple nutrient elements Intestinal malabsorption, unspecified type History of gastric bypass Primary hypertension MOE on CPAP Morbid obesity with BMI of 45.0-49.9, adult ([facility]) 02/11/2024 10:31 AM EST [employer] Vitamin B1, whole bl ood ([facility]) Vitamin B1, whole blood ([facility]) Lab Routine Deficiency of multiple nutrient elements Intestinal malabsorption, unspecified type History of gastric bypass 05/11/2024 9:42 AM EDT [employer] Zinc Zinc Lab Routine Prediabetes Morbid obesity with BMI of 60.0-69.9, adult ([facility]) Chronic midline low back pain without sciatica Daytime sleepiness Pre-operative laboratory examination 12/14/2022 10:37 AM EDT [employer] Zinc Zinc Lab Routine MOE on CPAP Primary hypertension Prediabetes Deficiency of multiple nutrient elements Intestinal malabsorption, unspecified type Morbid obesity with BMI of 50.0-59.9, adult ([facility]) 08/11/2023 10:25 AM [employer] End: 11-01-2023 Zinc [employer] Comment on above: Once (Lab) for 1 Occurrences starting until 11/01/2023 Zinc (Sendout) Zinc (Sendout) L ab Routine Deficiency of multiple nutrient elements Intestinal malabsorption, unspecified type History of gastric bypass Primary hypertension MOE on CPAP Morbid obesity with BMI of 45.0-49.9, adult ([facility]) 02/11/2024 10:31 AM EST [employer] Zinc (Sendout) Zinc (Sendout) L ab Routine Deficiency of multiple nutrient elements Intestinal malabsorption, unspecified type History of gastric bypass 05/11/2024 9:42 AM EDT [employer] [facility] Immunizations Immunization Date Immunization Notes Care Provider Rajinder aggarwal 11-07-2020 Covid (Moderna) [facility] 10-07-2020 Covid (Moderna) [facility] 05-04-2018 measles, mumps and rubella virus vaccine [facility] Payers Date Payer Category Payer Self-pay [id number] 2022 Medicaid [id number] 2022 Medicaid HMO [facility] MEDICA[facility] ODM Member Subscriber Plan / Payer (Effective 2022-Present) Name: Anne Marie Peterson Relation to Subscriber: Self Name: KristenAnne Marie cruz Payer ID: [id number] (NAIC) Group ID: [id number] Type: Medicaid HMO Address: [place] [id number] 2015 Unknown [facility] COMM[employer] PLAN [id number] 2015 Unknown [id number] 2000 Unknown [facility] [id number] 1995 Unknown [id number] 2.16.840.1.484948.3.579.2.651 1995 Unknown [id number] 2.16.840.1.529655.3.579.2.651 1995 Unknown [id number] 2.16.840.1.288909.3.579.2.651 1995 Unknown [id number] 2.16.840.1.833879.3.579.2.651 1995 Unknown [id number] 2.16.840.1.252688.3.579.2.651 1995 Unknown [id number] 2.16.840.1.429472.3.579.2.651 1995 Unknown [id number] 2.16.840.1.408616.3.579.2.651 1995 Unknown [id number] 2.16840.1.872826.3.579.2.65 1995 Unknown [id number] 2.16840.1.883459.3.579.2.651 1995 Unknown [id number] 2.16840.1.334022.3.579.2.65 1995 Unknown [id number] 2.840.1.814279.3.579.2.65 1995 Unknown [id number] 2.840.1.814207.3.579.2.65 1995 Unknown [id number] 2.840.1.172869.3.579.2.651 1995 Unknown [id number] 2.840.1.274467.3.579.2.651 1995 Unknown [id number] 2.16840.1.411354.3.579.2.479 1995 Unknown [id number] 2.16840.1.450641.3.579.2.479 Unknown [id number] 2.16840.1.195344.3.579.2.462 Unknown [id number] 2.16840.1.580963.3.579.2.462 Unknown [id number] 2.16840.1.462195.3.579.2.462 Unknown [id number] 2.16840.1.726223.3.579.2.462 Unknown [id number] 2.16840.1.999264.3.579.2.462 Unknown [id number] 2.16.840.1.920456.3.579.2.462 Unknown [id number] 2.16.840.1.482949.3.579.2.462 Unknown [id number] 2.16.840.1.205935.3.579.2.462 Unknown [id number] 2.16840.1.107458.3.579.2.462 Unknown [id number] 2.840.1.623749.3.579.2.462 Unknown [id number] 2.840.1.146604.3.579.2.462 Unknown [id number] 2.840.1.180414.3.579.2.462 Unknown [id number] 2.840.1.400098.3.579.2.462 Unknown [id number] 2.840.1.495641.3.579.2.462 Unknown [id number] 2.840.1.353456.3.579.2.462 Unknown [id number] 2.840.1.933124.3.579.2.462 Unknown [id number] 2.840.1.252447.3.579.2.462 Unknown [id number] 2.840.1.982015.3.579.2.462 Unknown [id number] 2.840.1.222838.3.579.2.462 Unknown [id number] 2.840.1.272473.3.579.2.462 Unknown [id number] 2.840.1.194839.3.579.2.462 Unknown [id number] 2.840.1.000204.3.579.2.462 Unknown [id number] 2.840.1.347458.3.579.2.462 Unknown [id number] 2.16.840.1.031407.3.579.2.462 Unknown [id number] 2.16.840.1.826136.3.579.2.462 Unknown [id number] 2.16.840.1.574124.3.579.2.462 Unknown [id number] 2.16.840.1.916441.3.579.2.462 Unknown [id number] 2.16.840.1.845043.3.579.2.462 Unknown [id number] 2.16.840.1.445653.3.579.2.462 Unknown [id number] 2.16.840.1.101253.3.579.2.462 Unknown [id number] 2.16.840.1.842791.3.579.2.462 Unknown [id number] 2.840.1.111127.3.579.2.462 Unknown [id number] 2.16.840.1.455543.3.579.2.462 Unknown [id number] 2.16.840.1.231218.3.579.2.462 Unknown [id number] 2.16840.1.886461.3.579.2.462 Unknown [id number] 2.16840.1.973749.3.579.2.462 Unknown [id number] 2.840.1.369144.3.579.2.462 Unknown [id number] 2.16840.1.076294.3.579.2.462 Unknown [id number] 2.840.1.398883.3.579.2.462 Unknown [id number] 2.840.1.862957.3.579.2.462 Social History Date Type Detail Facility Start: 03-12-2021 End: 09-24-2022 Tobacco smoking status FLIS Unknown if ever smoked [facility] Start: 1995 Sex Assigned At Female W [facility] Start: 09-04-2020 End: 09-10-2022 Tobacco smoking status NHIS Never smoked tobacco [facility] Start: 09-04-2020 End: 09-10-2022 Tobacco use and exposure Smokeless tobacco non-user [facility] Start: 09-10-2022 End: 07-19-2024 Alcohol intake Ex-drinker (finding) [facility] Start: 1995 Sex Assigned At Not on file [facility] Start: 09-10-2022 End: 10-28-2023 Gender identity Not on file [facility] Start: 08-31-2022 End: 11-02-2022 Exposure to SARS-CoV-2 (event) Not sure [facility] Start: 09-10-2022 End: 10-28-2023 History of Social function [facility] Has the [employer], or [employer] threatened to shut off services in your home in past 12Mo No [facility] Do you belong to any clubs or organizations such as restoration groups, [employer], [employer] or [employer] groups, or school groups? Patient unable to answer [facility] Are you now , , , , never or living with a partner? Never [facility] How often to you hav e a drink containing alcohol? Never [facility] Do you feel stress - tense, restless, nervous, or anxious, or unable to sleep at night because your mind is troubled all the time - these days [OSQ] Only a little [facility] (I/We) worried wheth er (my/our) food would run out before (I/we) got money to buy more. Never true [facility] Do you belong to any clubs or organizations such as restoration groups, [employer], [employer] or [employer] groups, or school groups? Yes [facility] Are you now , , , , never or living with a partner? Living with partner [facility] Do you feel stress - tense, restless, nervous, or anxious, or unable to sleep at night because your mind is troubled all the time - these days [OSQ] Not at all [facility] Start: 09-07-2022 End: 06-28-2024 Sex Female (finding) [facility] NEGATED: Highlighted row [facility] Goals Date Patient Goal Desired Activity /State Mental Status Date Assessment Result Facility 06-11-2022 Cognitive function Voice/Name [facility] Work Phone: Clinical Notes 06-11-2022 to 06-28-2024 Telephone Encounter - Andreea Webster, RD - 05/26/2024 2:17 PM EDTTelephone Encounter - Andreea Huaer, RD - 05/26/2024 2:17 PM EDTTelephone Encounter - Andreea Webster, RD - 05/12/2024 10:27 AM EDT Note Date & Type Note Facility 06-28-2024 Radiology Diagnostic study note [facility] Imaging Services [address] [place], [place] [id number] Transvaginal w/Preg US MR#: [id number] Acct: [id number] Name: ANNE MARIE PETERSON Rep #: [id number] : 1995 F 28 From: Bria Archuleta MD PCP: Xenia Lane PA-C Status: REG C TIFFANI Study:Transvaginal w/Preg US Date of Exam: 06/28/24 Exam# [id number] Ordering Dr: Silviano Hill MD EXAM: TRANSVAGINAL W/PREG US, 06/28/2024. Reportedly, 14 weeks 0 days with LANIE 12/27/2024 by previously established dates. CLINICAL HISTORY: BLEEDING AT 14 WEEKS COMPARISON: 05/25/2024 TECHNIQUE: A limited transabdominal and transvaginal obstetrical ultrasound was performed with attention to the uterus and associated gestation. FINDINGS: Gravid uterus with a single fetus. presentation: Breech. heart rate: Present, 167 bpm. Placenta: Anterior without visualized or definite previa. Cervix: Closed, variably measured at 2.6-3.0 cm on transvaginal images cm. Other: Trace pelvic free fluid. US/Transvaginal w/Preg US IMPRESSION: 1. Single living intrauterine gestation in breech presentation. 2. Borderline evidence of cervical incompetence. Recommend clinical follow-up including routine complete 20 week anatomic survey. 3. Trace nonspecific pelvic free fluid. 4. Additional description as above. Reading Location: [id number] CC: [address]; Dr. Silviano Daley MD ~ Nub Card Tender: Signed [facility] 06-17-2024 Discharge summary [facility] 05-26-2024 Telephone encounter Note Sent [employer] message to patient with requirements for bariatric patients. Rec'd calories increase by 300/day, protein incr by 20g/day and her current supplementation to stay the same. Pt w/ recent low values of vitamin D, zinc, iron, and B12, has orders in place to recheck those labs in July, reminded pt of that. [facility] 05-26-2024 Miscellaneous Notes Sent [employer] message to patient with requirements for bariatric patients. Rec'd calories increase by 300/day, protein incr by 20g/day and her current supplementation to stay the same. Pt w/ recent low values of vitamin D, zinc, iron, and B12, has orders in place to recheck those labs in July, reminded pt of that. documented in this encounter [facility] 05-26-2024 Radiology Diagnostic study note [facility] Imaging Services [address] [place], [place] [id number] Transvaginal w/Preg US MR#: [id number] Acct: [id number] Name: ANNE MARIE PETERSON Rep #: [id number] : 1995 F 28 From: Artur Ward MD PCP: Xenia Lane PA-C Status: REG C LI Study:Transvaginal w/Preg US Date of Exam: 05/25/24 Exam# [id number] Ordering Dr: Peggy Vogt DO PROCEDURE: TRANSVAGINAL W/PREG US 05/25/2024 REASON FOR EXAM: PELVIC PAIN TECHNIQUE: Transvaginal. FINDINGS: Number of Gestational Sacs: 1 Gestational Sac Shape: Normal Number of Fetuses: 1 Heart Rate: 183 beats per minute (average) Yolk Sac: Present and unremarkable. Placenta: Presently not well-visualized Amniotic Fluid Volume: Subjectively normal for gestational age. Uterine Abnormalities: Maternal uterus is unremarkable. Ovaries / Adnexa: Both maternal ovaries are visualized and unremarkable. DIMENSIONS: Parameter Measurement / EGA [place] Rump Length: 2.4 cm/8 weeks and 6 days. Gestational Sac: 3.8 cm/9 weeks and 1 day Yolk Sac: 4 mm/ ESTIMATED GESTATIONAL AGE: By Ultrasound: 9 weeks and 0 days By LMP: 9 weeks and 1 day ESTIMATED DATE OF DELIVERY: By Ultrasound: December 28, 2024 By LMP: December 27, 2024 US/Transvaginal w/Preg US IMPRESSION: UNREMARKABLE FIRST TRIMESTER ULTRASOUND with a gestational age of 9 weeks and 0 days.. Reading Location: [place] [address] CC: [address]; Dr. Peggy Flynn, DO ~ Nub Card Tender: Signed [facility] 05-16-2024 Note Addended by: BALWINDER LUGO on: 05/16/2024 11:57 AM Modules accepted: Orders [facility] 05-16-2024 Telephone encounter Note 18 month labs entered per JZ [facility] 05-16-2024 Miscellaneous Notes Addended by: BALWINDER FAJARDO on: 05/16/2024 11:57 AM Modules accepted: Orders 18 month labs entered per JZ Order signed ----- Message from Memo Campbell MD sent at 05/11/2024 6:10 PM EDT ----- Please review the chart, not sure why all of the labs were canceled. She needs follow-up labs for her 18-month visit however I think we need to also recheck her iron zinc and vitamin D sometime in August, 3 months from now because they were all low and replaced. Please reorder what ever labs are necessary, they also canceled on my end. Called pt regarding low B12 (300), iron (47), and D(14). Pt has not been taking B12, and only taking 2000 IU of D3. Pt w/ chronic low iron, to order 325mg ferrous sulfate BID. Rec'd pt take 2000 IU vitamin D3 TID until we recheck her labs in 3 months. Awaiting B1 and zinc result. Sent follow up [employer] message to pt w/ all supplement information. ----- Message from Memo Campbell MD sent at 05/11/2024 6:11 PM EDT ----- Zinc and vitamin D are still low, please replace documented in this encounter [facility] 05-12-2024 Telephone encounter Note Order signed [facility] 05-12-2024 Miscellaneous Notes Order signed ----- Message from Memo Campbell MD sent at 05/11/2024 6:10 PM EDT ----- Please review the chart, not sure why all of the labs were canceled. She needs follow-up labs for her 18-month visit however I think we need to also recheck her iron zinc and vitamin D sometime in August, 3 months from now because they were all low and replaced. Please reorder what ever labs are necessary, they also canceled on my end. Called pt regarding low B12 (300), iron (47), and D(14). Pt has not been taking B12, and only taking 2000 IU of D3. Pt w/ chronic low iron, to order 325mg ferrous sulfate BID. Rec'd pt take 2000 IU vitamin D3 TID until we recheck her labs in 3 months. Awaiting B1 and zinc result. Sent follow up [employer] message to pt w/ all supplement information. ----- Message from Memo Campbell MD sent at 05/11/2024 6:11 PM EDT ----- Zinc and vitamin D are still low, please replace documented in this encounter [facility] 05-12-2024 Telephone encounter Note ----- Message from Memo Campbell MD sent at 05/11/2024 6:10 PM EDT ----- Please review the chart, not sure why all of the labs were canceled. She needs follow-up labs for her 18-month visit however I think we need to also recheck her iron zinc and vitamin D sometime in August, 3 months from now because they were all low and replaced. Please reorder what ever labs are necessary, they also canceled on my end. [facility] 05-12-2024 Telephone encounter Note Called pt regarding low B12 (300), iron (47), and D(14). Pt has not been taking B12, and only taking 2000 IU of D3. Pt w/ chronic low iron, to order 325mg ferrous sulfate BID. Rec'd pt take 2000 IU vitamin D3 TID until we recheck her labs in 3 months. Awaiting B1 and zinc result. Sent follow up [employer] message to pt w/ all supplement information. [facility] 05-12-2024 Telephone encounter Note ----- Message from Memo Campbell MD sent at 05/11/2024 6:11 PM EDT ----- Zinc and vitamin D are still low, please replace [facility] 05-11-2024 History of Presen t illness Narrative [facility] Patient: Anne Marie Peterson Date of : 1995 Service Date: 05/11/2024 HPI: Patient here today for 12 month post-weight loss surgery follow up She is feeling well. Denies nausea, vomiting, dysphagia, or any GERD Sx. Currently is on any PPI. Patient states diet and exercise is going fairly well. Currently is eating 65-75 gm/day protein, and is compliant with prescribed multivitamins and supplements. Vital signs are stable. Labs were Completed All labs were: normal Physical Examination: BP 126/84 Pulse 80 Temp 36.4 C (97.6 F) Resp 16 Ht 5' 5.25 (1.657 m) Comment: bcc Wt 255 lb 3.2 oz (116 kg) BMI 42.14 kg/m General: This patient is awake, alert, and oriented, and is in no apparent distress. Abdomen: Obese, soft, non-tender, non-distended without masses/ No evidence of abdominal hernia / Incisions consistent with previous surgeries. Extremities: No cyanosis, clubbing or edema/ No calf tenderness/No restrictions of movement, is ambulatory without assistance. Neurological: Intact x 4 extremities, no focal deficits notes. Skin: No rashes or lesions noted. Rectal: Deferred Current Medications: Patient's Medications New Prescriptions No medications on file Previous Medications CALCIUM CITRATE 250 MG TABLET Take 2 tablets (500 mg) by mouth 3 times daily. Take 2 tablets by mouth three times daily. ERGOCALCIFEROL (VITAMIN D2) 1.25 MG (60216 UT) CAPSULE Take 1 capsule (1.25 mg) by mouth 1 (one) time per week. Take one capsule by mouth weekly for 8 weeks. FLECAINIDE (TAMBOCOR) 50 MG TABLET Take 3 tablets (150 mg) by mouth Once as needed (Take 3 pills as needed for episodes of atrial fibrillation). MAGNESIUM 30 MG TABLET Take 30 mg by mouth 2 times daily. METOPROLOL TARTRATE (LOPRESSOR) 25 MG TABLET Take 1 tablet (25 mg) by mouth 2 times daily. MULTIPLE VITAMINS-MINERALS (CENTRUM ADULTS) TABLET Take 2 tablets by mouth daily. NYSTATIN (MYCOSTATIN) 073732 UNIT/GM POWDER Apply topically 2 times daily. RESPIRATORY THERAPY SUPPLIES (CARETOUCH 2 CPAP HOSE PRODUCE SHIPPER) MISC CPAP 10 cm h20 THIAMINE (VITAMIN B-1) 50 MG TABLET Take 1 tablet (50 mg) by mouth daily. Take 1 tablet by mouth daily. VITAMIN D, CHOLECALCIFEROL, PO Take 4,000 Int'l Units by mouth daily. ZINC 50 MG TABLET Take 1 tablet (50 mg) by mouth daily. Modified Medications No medications on file Discontinued Medications CHOLECALCIFEROL (VITAMIN D-3) 50 MCG (2000 UT) CAPSULE Take 2 capsules (100 mcg) by mouth daily. Medications ordered during this encounter: Outpatient Encounter Medications as of 05/11/2024 Medication Sig Dispense Refill calcium citrate 250 MG tablet Take 2 tablets (500 mg) by mouth 3 times daily. Take 2 tablets by mouth three times daily. 180 tablet 11 flecainide (Tambocor) 50 MG tablet Take 3 tablets (150 mg) by mouth Once as needed (Take 3 pills as needed for episodes of atrial fibrillation). 30 tablet 3 magnesium 30 MG tablet Take 30 mg by mouth 2 times daily. metoprolol tartrate (Lopressor) 25 MG tablet Take 1 tablet (25 mg) by mouth 2 times daily. (Patient taking differently: Take 25 mg by mouth 2 times daily.) 60 tablet 11 Multiple Vitamins-Minerals (Centrum Adults) tablet Take 2 tablets by mouth daily. 60 tablet 11 nystatin (Mycostatin) 835037 UNIT/GM powder Apply topically 2 times daily. Respiratory Therapy Supplies (CareTouch 2 CPAP Hose Dominatrix) misc CPAP 10 cm h20 thiamine (Vitamin B-1) 50 MG tablet Take 1 tablet (50 mg) by mouth daily. Take 1 tablet by mouth daily. 30 tablet 11 VITAMIN D, CHOLECALCIFEROL, PO Take 4,000 Int'l Units by mouth daily. zinc 50 MG tablet Take 1 tablet (50 mg) by mouth daily. 30 tablet 3 ergocalciferol (Vitamin D2) 1.25 MG (81943 UT) capsule Take 1 capsule (1.25 mg) by mouth 1 (one) time per week. Take one capsule by mouth weekly for 8 weeks. (Patient not taking: Reported on 05/11/2024) 8 capsule 0 [DISCONTINUED] cholecalciferol (Vitamin D-3) 50 MCG (2000 UT) capsule Take 2 capsules (100 mcg) by mouth daily. 180 capsule 3 No facility-administered encounter medications on file as of 05/11/2024. Orders Placed This Encounter Procedures CBC Comprehensive metabolic panel Lipid panel Vitamin B1, whole blood ([facility]) Vitamin B12 Vitamin D Deficiency Screening (Vit D 25) Magnesium Ferritin Iron Folate Zinc (Sendout) Visit Diagnoses: 1. Intestinal malabsorption, unspecified type 2. Deficiency of multiple nutrient elements 3. History of gastric bypass 4. MOE on CPAP 5. Low zinc level 6. Low vitamin D level Plan: 1). Diet and Exercise: Walking as able 2). Continue to monitor for signs and symptoms of GERD / Continue PPI 3). Labs: normal 4). Psych concerns : No 5). Excessive skin concerns: No - will discuss at 18 month visit once weight stability achieved. 6). If patient is a woman of childrearing age- 18-50. We discussed the importance of contraception during the first 12-18 months post op, and we discussed that fertility will increase following the procedure. Advised patient to discuss with her OBGYN regarding contraception. Patient counseled with good understanding verbalized. 7). Weight loss: Post-op Weight Metrics: %EBWL: % EBWL: 54% Weight Change Since Last Visit: Weight Change: -31.2 lbs Weight Change from Highest Pre-op Weight: Total Weight Change: -147.8 lbs She met with the dietitian today to review our vitamin and protein recommendations. Increase activity as recommended, the wounds are healed, no evidence of abdominal wall hernias. No nausea vomiting or dysphagia noted. Appropriate bowel function, discussed with her regarding contacting us for any questions or concerns. The lab slip was signed for the next visit, labs from 02/11/24 were reviewed and are within normal limits. Follow-up 18 months postop. Low iron, zinc and vitamin D, met with RD to replace. Will follow-up after replacement and follow-up labs. I personally performed the evaluation and management of Anne Marie Peterson in the development of a treatment plan for this patient. I personally interviewed the patient and performed an individual physical examination. In addition, I discussed the patient's condition and treatment options with them. I have also reviewed and agree with the past medical, family and social history unless otherwise noted. All of the patient's questions were answered. I discussed/counseled the patient regarding the postoperative care plan for this patient. The patient was seen and examined independently and relevant data reviewed by myself. A full chart review was performed. Patient Care Team: Xenia Lane as PCP - General (Family Medicine) Silviano Daley (Obstetrics and Gynecology) Memo Campbell MD as Surgeon (General Surgery) Zully Anton RN as Registered Nurse (Bariatrics) Eliazar Abreu MD as Consulting Physician (Internal Medicine Cardiovascular Disease) [facility] > 12 MONTH POST-OPERATIVE DIETITIAN VISIT Date: 05/11/24 Patient's weight decreased by: 147.8 lbs Patient does notconsume 5-6 small meals daily Patient s portions are adequate for current diet: -1 cup Protein requirements discussed- currently consuming 65 grams protein daily. Current protein sources: eggs, beef stick, protein shake, chicken Recommendations:add snacks between meals Fluid requirements discussed. Current Fluid Intake: 80oz Patient does not drink sugar-free, caffeine-free and carbonation-free fluids only. Black tea Patient does wait 30 minutes before and after meals to drink Exercise activities discussed. Patient does currently exercise. She was reminded that regular exercise is critical part of a successful outcome following weight loss surgery. Walking, some at home exercises. Behavioral/Emotional changes reviewed. Patient does notfeel comfortable with changes in eating behaviors and associated emotional changes. She was reminded that psychological counseling is available through the [facility] post-[facility]. Pt struggling emotionally with weight and disordered eating. Provided psychology referral sheet. The importance of vitamin supplements has been reviewed and the patient is taking the following: -Multivitamin with minerals and iron: yes -Calcium: yes -Vitamin B12: yes -Vitamin D3: yes -Other: Recent Nutrient Concerns and Vitamin Supplementation Changes: none Pt states she's taking all her supplements, will get labs today. Notes/Comments: Patient doing well. Pt encouraged to call/Mychart with questions. Visit completed by: Andreea Webster RD documented in this encounter [facility] 05-10-2024 Radiology Diagnostic study note [facility] Imaging Services [address] [place] [address] [id number] Transvaginal w/Preg US MR#: [id number] Acct: [id number] Name: ANNE MARIE PETERSON Rep #: [id number] : 1995 F 28 From: Artur Ward MD PCP: Xenia Lane PA-C Status: REG C TIFFANI Study:Transvaginal w/Preg US Date of Exam: 05/09/24 Exam# [id number] Ordering Dr: Peggy Vogt DO PROCEDURE: TRANSVAGINAL W/PREG US 05/09/2024 REASON FOR EXAM: DATING TECHNIQUE: Transvaginal. COMPARISON: Comparison is made with prior study dated May 01, 2024. FINDINGS: Number of Gestational Sacs: 1 Gestational Sac Shape: Normal Number of Fetuses: 1 Heart Rate: 130 beats per minute (average) Yolk Sac: Present and unremarkable. Placenta: Presently not well-visualized Amniotic Fluid Volume: Subjectively normal for gestational age. Uterine Abnormalities: Maternal uterus is unremarkable. Ovaries / Adnexa: Both maternal ovaries are visualized and unremarkable. DIMENSIONS: Parameter Measurement / [place]GA [place] Rump Length: 7.3 mm/6 weeks and 5 days Gestational Sac: 2 cm/6 weeks and 6 days Yolk Sac: 2.9 mm/ ESTIMATED GESTATIONAL AGE: By Ultrasound: 6 weeks and 6 days By LMP: 7 weeks and 0 days ESTIMATED DATE OF DELIVERY: By Ultrasound: December 27, 2024 By LMP: December 26, 2024 US/Transvaginal w/Preg US IMPRESSION: Live intrauterine gestation with a mean gestational age of 6 weeks and 6 days. Reading Location: [place] [address] CC: RUMA Lane; DO Brian Nathan Nub Card Tender: Signed [facility] 05-02-2024 Radiology Diagnostic study note [facility] Imaging Services [address] [place] [address] [id number] Transvaginal w/Preg US MR#: [id number] Acct: [id number] Name: ANNE MARIE PETERSON Rep #: [id number] : 1995 F 28 From: Artur Ward MD PCP: Xenia Lane PA-C Status: KRISTOFER C TIFFANI Study:Transvaginal w/Preg US Date of Exam: 05/01/24 Exam# [id number] Ordering Dr: Lidya Booker SPONGE CLIPPER SPONGE CLIPPER-C PROCEDURE: TRANSVAGINAL W/PREG US REASON FOR EXAM: VIABILITY COMPARISON: None. FINDINGS: Comments: LMP: March 21, 2024. Number of Gestational Sacs: 1 Gestational Sac Shape: Normal Yolk Sac: Present and unremarkable. Placenta: Presently not well-visualized Amniotic Fluid Volume: Subjectively normal for gestational age. Uterine Abnormalities: Maternal uterus is unremarkable. Ovaries / Adnexa: Both maternal ovaries are visualized and unremarkable. DIMENSIONS: Parameter Measurement / EGA [place] Rump Length: Not visualized at this time. Gestational Sac: 1.1 cm/5 weeks and 6 days Yolk Sac: 3 mm/ ESTIMATED GESTATIONAL AGE: By Ultrasound: 5 weeks and 6 days By LMP: 5 weeks and 6 days ESTIMATED DATE OF DELIVERY: By Ultrasound: December 26, 2024 By LMP: December 26, 2024 US/Transvaginal w/Preg US IMPRESSION: Intrauterine gestation with a mean gestational age of 5 weeks and 6 days. Embryonic heart rate not detected at this time. Follow-up recommended. Reading Location: [facility] CC: JENNY Booker; RUMA Lane ~ Nub Card Tender: Signed [facility] 03-13-2024 Evaluation note Diagnosis Onset Date Resolution Ectopic inactive March 13, 2024 1:11pm Elevated liver enzymes acute Fe bruary 2024 9:06am BMI 60.0-69.9, adult acute Apri 2024 8:53am Constipation acute May 29 8:53am Daytime hypersomnia acute May 29, 2024 8:53am Early stage of acute May 29, 2024 8:53am Elevated liver enzymes acute 2024 8:53am Fatigue acute May 29 8:53am Hepatitis acute May 29 8:53am Hirsutism acute May 29 8:53am History of atrial fibrillation acute May 29, 2024 8:53am History of recurrent miscarriages acute May 29, 2024 8:53am History of Sandra-en-Y gastric bypass acute May 29, 2024 8:53am Liver lesion acute May 29 8:53am Obesity affecting acute May 29, 2024 8:53am Pelvic pain affecting in first trimester, antepartum acute May 29, 2024 8:53am Prediabetes acute May 29 8:53am acute May 29 8:53am Recurrent loss acute May 29, 2024 8:53am Supervision of high-risk acute May 29 8:53am Abdominal pain chronic May 29, 2024 8:53am Binge-eating disorder, moderate chronic May 29, 2024 8:53am Hypertension chronic [facility], 2 025 8:53am Rectal bleeding chronic May 8:53am BMI 60.0-69.9, adult acute Apri l 2024 8:41am Constipation acute June 19, 2024 8:41am Daytime hypersomnia acute June 19, 2024 8:41am Early stage of acute June 19, 2024 8:41am Elevated liver enzymes acute Ap ril 2024 8:41am Fatigue acute June 19 8:41am Hepatitis acute June 19 8:41am Hirsutism acute June 19 8:41am History of atrial fibrillation acute June 19, 2024 8:41am History of recurrent miscarriages acute June 19, 2024 8:41am History of Sandra-en-Y gastric bypass acute June 19, 2024 8:41am Liver lesion acute June 19, 2024 8:41am Obesity affecting acute June 19, 2024 8:41am Pelvic pain affecting in first trimester, antepartum acute May 8:41am Prediabetes acute June 19, 025 8:41am acute June 19 8:41am Recurrent loss acute June 19, 2024 8:41am Supervision of high-risk acute June 19, 2024 8:41am Abdominal pain chronic May 8:41am Binge-eating disorder, moderate chronic June 19, 2024 8:41am Hypertension chronic June 19, 2024 8:41am Rectal bleeding chronic May 8:41am , threatened inactive Apri l 2024 8:41am BMI 60.0-69.9, adult acute June 27, 2024 2:28pm Constipation acute June 27 2:28pm Daytime hypersomnia acute June 272024 2:28pm Early stage of acute June 27, 2024 2: 28pm Elevated liver enzymes acute Ma 2024 2:28pm Fatigue acute June 27, 2024 2:28pm Hepatitis acute June 27, 2024 2:28pm Hirsutism acute June 27, 2024 2:28pm History of atrial fibrillation acute June 27, 2024 2: 28pm History of recurrent miscarriages acute June 27, 2024 2: 28pm History of Sandra-en-Y gastric bypass acute June 27, 2024 2: 28pm Liver lesion acute June 27 2:28pm Obesity affecting acute June 27, 2024 2: 28pm Pelvic pain affecting in first trimester, antepartum acute June 27, 2 025 2:28pm Prediabetes acute June 27, 2024 2:28pm acute June 27, 2024 2:28pm Recurrent loss acute June 27, 2024 2: 28pm Supervision of high-risk acute June 27 2:28pm UTI in acute June 27, 2024 2:28pm Abdominal pain chronic June 27, 2 025 2:28pm Binge-eating disorder, moderate chronic June 27, 2024 2: 28pm Hypertension chronic June 27 2:28pm Rectal bleeding chronic June 27, 2024 2:28pm [facility] Work Phone: 1(991) 388-306201-20-2025 Evaluation note* Diagnosis Onset Date Resolution Status Admit Date Ectopic inactive March 13, 2024 1:11pm Elevated liver enzymes acute Fe bruary 2024 9:06am BMI 60.0-69.9, adult acute Apri 2024 8:53am Constipation acute May 29 8:53am Daytime hypersomnia acute May 29, 2024 8:53am Early stage of acute May 29, 2024 8:53am Elevated liver enzymes acute Ap 2024 8:53am Fatigue acute May 29 8:53am Hepatitis acute May 29 8:53am Hirsutism acute May 29 8:53am History of atrial fibrillation acute May 29, 2024 8:53am History of recurrent miscarriages acute May 29, 2024 8:53am History of Sandra-en-Y gastric bypass acute May 29, 2024 8:53am Liver lesion acute May 29 025 8:53am Obesity affecting acute May 29, 2024 8:53am Pelvic pain affecting in first trimester, antepartum acute May 29, 2024 8:53am Prediabetes acute May 29 8:53am acute May 29 8:53am Recurrent loss acute May 29, 2024 8:53am Supervision of high-risk acute May 29, 2024 8:53am Abdominal pain chronic May 29, 2024 8:53am Binge-eating disorder, moderate chronic May 29, 2024 8:53am Hypertension chronic May 29, 8:53am Rectal bleeding chronic May 8:53am BMI 60.0-69.9, adult acute Apri l 2024 8:41am Constipation acute June 19, 2024 8:41am Daytime hypersomnia acute June 19, 2024 8:41am Early stage of acute June 19, 2024 8:41am Elevated liver enzymes acute Ap ril 2024 8:41am Fatigue acute June 19 8:41am Hepatitis acute June 19 8:41am Hirsutism acute June 19 8:41am History of atrial fibrillation acute June 19, 2024 8:41am History of recurrent miscarriages acute June 19, 2024 8:41am History of Sandra-en-Y gastric bypass acute June 19, 2024 8:41am Liver lesion acute June 19, 2024 8:41am Obesity affecting acute June 19, 2024 8:41am Pelvic pain affecting in first trimester, antepartum acute June 19, 2024 8:41am Prediabetes acute June 19, 2 8:41am acute June 19 8:41am Recurrent loss acute June 19, 2024 8:41am Supervision of high-risk acute June 19, 2024 8:41am Abdominal pain chronic May 8:41am Binge-eating disorder, moderate chronic June 19, 2024 8:41am Hypertension chronic June 19, 2024 8:41am Rectal bleeding chronic May 8:41am , threatened inactive Apri l 2024 8:41am BMI 60.0-69.9, adult acute June 27, 2024 2:28pm Constipation acute June 27 2:28pm Daytime hypersomnia acute June 272024 2:28pm Early stage of acute June 27, 2024 2:28pm Elevated liver enzymes acute Ma 2024 2:28pm Fatigue acute June 27, 2024 2:28pm Hepatitis acute June 27, 2024 2:28pm Hirsutism acute June 27, 2024 2:28pm History of atrial fibrillation acute June 27, 2024 2: 28pm History of recurrent miscarriages acute June 27, 2024 2: 28pm History of Sandra-en-Y gastric bypass acute June 27, 2024 2: 28pm Liver lesion acute June 27 2:28pm Obesity affecting acute June 27, 2024 2:28pm Pelvic pain affecting in first trimester, antepartum acute June 27, 2024 2: 28pm Prediabetes acute June 27, 2024 2:28pm acute June 27, 2024 2:28pm Recurrent loss acute June 27, 2024 2:28pm Supervision of high-risk acute June 27, 2024 2: 28pm UTI in acute June 27, 2024 2:28pm Abdominal pain chronic June 27, 2 025 2:28pm Binge-eating disorder, moderate chronic June 27, 2024 2: 28pm Hypertension chronic June 27 2:28pm Rectal bleeding chronic June 27, 2024 2:28pm Cervical shortening affectin g acute July 04, 2024 1 0:56am Complete acute June 10:56am [facility] Work Phone: 1(122) 450-117801-09-2025 Evaluation note* Diagnosis Onset Date Resolution Status Admit Date Incomplete acute 2024 8:55am Recurrent loss acute March 02, 2024 8:55am Ectopic inactive March 13, 2024 1:11pm Elevated liver enzymes acute Fe bruary 2024 9:06am [facility] Work Phone: 1(908) 740-981701-09-2025 Evaluation note* Diagnosis Onset Date Resolution Status Admit Date Recurrent loss acute March 02, 2024 8:55am Incomplete resolved 2024 8:55am Ectopic inactive March 13, 2024 1:11pm Elevated liver enzymes acute Fe bruary 2024 9:06am [facility] Work Phone: 1(500) 372-566901-09-2025 Evaluation note* Diagnosis Onset Date Resolution Status Admit Date Recurrent loss acute March 02, 2024 8:55am Incomplete resolved 2024 8:55am Ectopic inactive March 13, 2024 1:11pm Elevated liver enzymes acute Fe bruary 2024 9:06am BMI 60.0-69.9, adult acute Apri l 2024 8:53am Constipation acute May 29, 8:53am Daytime hypersomnia acute May 29, 2024 8:53am Early stage of acute May 29, 2024 8:53am Elevated liver enzymes acute Ap ril 2024 8:53am Fatigue acute May 29 8:53am Hepatitis acute May 29 8:53am Hirsutism acute May 29 8:53am History of atrial fibrillation acute May 29, 2024 8:53am History of recurrent miscarriages acute May 29, 2024 8:53am History of Sandra-en-Y gastric bypass acute May 29, 2024 8:53am Liver lesion acute May 29 8:53am Obesity affecting acute May 29, 2024 8:53am Pelvic pain affecting in first trimester, antepartum acute May 29, 2024 8:53am Prediabetes acute May 29 8:53am acute May 29 8:53am Recurrent loss acute May 29, 2024 8:53am Supervision of high-risk acute May 29, 2024 8:53am Abdominal pain chronic May 29, 2024 8:53am Binge-eating disorder, moderate chronic May 29, 2024 8:53am Hypertension chronic May 29 8:53am Rectal bleeding chronic May 8:53am [facility] Work Phone: 1([phone]) 908-430801-09-2025 Evaluation note* Diagnosis Onset Date Resolution Status Admit Date Recurrent loss acute March 02, 2024 8:55am Incomplete resolved Janua 2024 8:55am Ectopic inactive March 13, 2024 1:11pm Elevated liver enzymes acute Fe bruary 2024 9:06am BMI 60.0-69.9, adult acute Apri l 2024 8:53am Constipation acute May 29 8:53am Daytime hypersomnia acute May 29, 2024 8:53am Early stage of acute May 29, 2024 8:53am Elevated liver enzymes acute Ap ril 2024 8:53am Fatigue acute May 29 8:53am Hepatitis acute May 29 8:53am Hirsutism acute May 29 8:53am History of atrial fibrillation acute May 29, 2024 8:53am History of recurrent miscarriages acute May 29, 2024 8:53am History of Sandra-en-Y gastric bypass acute May 29, 2024 8:53am Liver lesion acute May 29 8:53am Obesity affecting acute May 29, 2024 8:53am Pelvic pain affecting in first trimester, antepartum acute May 29, 2024 8:53am Prediabetes acute May 29 8:53am acute May 29 8:53am Recurrent loss acute May 29, 2024 8:53am Supervision of high-risk acute May 29, 2024 8:53am Abdominal pain chronic May 29, 2024 8:53am Binge-eating disorder, moderate chronic May 29, 2024 8:53am Hypertension chronic May 29 8:53am Rectal bleeding chronic May 8:53am BMI 60.0-69.9, adult acute Apri l 2024 8:41am Constipation acute June 19, 2024 8:41am Daytime hypersomnia acute June 19, 2024 8:41am Early stage of acute June 19, 2024 8:41am Elevated liver enzymes acute Ap 2024 8:41am Fatigue acute June 19 8:41am Hepatitis acute June 19 8:41am Hirsutism acute June 19 8:41am History of atrial fibrillation acute June 19, 2024 8:41am History of recurrent miscarriages acute June 19, 2024 8:41am History of Sandra-en-Y gastric bypass acute June 19, 2024 8:41am Liver lesion acute June 19, 2024 8:41am Obesity affecting acute June 19, 2024 8:41am Pelvic pain affecting in first trimester, antepartum acute June 19, 2024 8:41am Prediabetes acute June 19 8:41am acute June 19 8:41am Recurrent loss acute June 19, 2024 8:41am Supervision of high-risk acute June 19, 2024 8:41am Abdominal pain chronic May 8:41am Binge-eating disorder, moderate chronic June 19, 2024 8:41am Hypertension chronic June 19, 2024 8:41am Rectal bleeding chronic May 8:41am , threatened inactive Apri l 2024 8:41am BMI 60.0-69.9, adult acute June 27, 2024 2:28pm Constipation acute June 27 2:28pm Daytime hypersomnia acute June 272024 2:28pm Early stage of acute June 27, 2024 2:28pm Elevated liver enzymes acute 2024 2:28pm Fatigue acute June 27, 2024 2:28pm Hepatitis acute June 27, 2024 2:28pm Hirsutism acute June 27, 2024 2:28pm History of atrial fibrillation acute June 27, 2024 2: 28pm History of recurrent miscarriages acute June 27, 2024 2: 28pm History of Sandra-en-Y gastric bypass acute June 27, 2024 2: 28pm Liver lesion acute June 27 2:28pm Obesity affecting acute June 27, 2024 2:28pm Pelvic pain affecting in first trimester, antepartum acute June 27, 2024 2: 28pm Prediabetes acute June 27, 2024 2:28pm acute June 27, 2024 2:28pm Recurrent loss acute June 27, 2024 2:28pm Supervision of high-risk acute June 27, 2024 2: 28pm UTI in acute June 27, 2024 2:28pm Abdominal pain chronic June 27, 2 025 2:28pm Binge-eating disorder, moderate chronic June 27, 2024 2: 28pm Hypertension chronic June 27 2:28pm Rectal bleeding chronic June 27, 2024 2:28pm [facility] Work Phone: [phone]) 893-997712-31-2024 NoteDischarge Instructions Discharge Summary [address] [address] [id number] 02/20/2024 Patient: ANNE MARIE PETERSON Sex: Female : 1995 Age: 28y Thank you for visiting [facility]. You have been evaluated today by Anup Larios D.O. for the following condition(s): Patient Signature Facility Forensics Team Director Date/Time General Instructions with [address] [address] [id number] 02/20/2024 Patient: ANNE MARIE PETERSON Sex: Female : 1995 Age: 28y Thank you for visiting [facility]. You have been evaluated today by Anup Larios D.O. for the following condition(s): 1 of 6 Discharge Instructions Discharge Summary [address] [address] [id number] 02/20/2024 Patient: ANNE MARIE PETERSON Sex: Female : 1995 Age: 28y Thank you for visiting [facility]. You have been evaluated today by Jaswinder Sena D.O. for the following condition(s): Principal Diagnosis Acute generalized abdominal pain. Acute abdominal pain of unknown cause. INSTRUCTIONS Do not work today, tomorrow, for one day. Follow-up with: SUZANNA Miller, [facility], , [address] [place] [address]. Follow up in two days. (return if increasing pain problems or concerns. not sure what is causing her abdominal pain. This could be a virus or some other etiology. Return back to the emergency department). You have been given the following additional information: Unknown Causes of Abdominal Pain (Female) Patient Signature 2 of 6 Discharge Instructions Facility Forensics Team Director Date/Time General Instructions with [address] [address] [id number] 02/20/2024 Patient: ANNE MARIE PETERSON Sex: Female : 1995 Age: 28y Thank you for visiting [facility]. You have been evaluated today by Jaswinder Sena D.O. for the following condition(s): Principal Diagnosis Acute generalized abdominal pain. Acute abdominal pain of unknown cause. INSTRUCTIONS Do not work today, tomorrow, for one day. Follow-up with: SUZANNA Miller, [facility], , [address] [place] [address]. Follow up in two days. (return if increasing pain problems or concerns. not sure what is causing her abdominal pain. This could be a virus or some other etiology. Return back to the emergency department). ADDITIONAL INFORMATION 3 of 6 Discharge Instructions Unknown Causes of Abdominal Pain (Female) The exact cause of your belly (abdominal) pain is not clear. This does not mean that this is something to worry about. Everyone likes to know the exact cause of the problem. But sometimes with belly pain, there is no clear-cut cause, and this could be a good thing. The good news is that your symptoms can be treated, and you will feel better. Your condition does not seem serious now. But sometimes the signs of a serious problem may take more time to appear. For this reason, it is important for you to watch for any new symptoms, problems, or worsening of your condition. Over the next few days, the abdominal pain may come and go. Or it may be constant. Other common symptoms can include nausea and vomiting. Sometimes it can be difficult to tell if you feel nauseous. You may just feel bad and not connect that feeling to nausea. Constipation, diarrhea, and a fever may go along with the pain. The pain may continue even if treated correctly over the following days. Depending on how things go, sometimes the cause can become clear and may need more or different treatment. Additional evaluations, medicines, or tests may also be needed. 4 of 6 Discharge Instructions Home care Your healthcare provider may prescribe medicine for pain, symptoms, or an infection. Follow the healthcare provider's instructions for taking these medicines. General care Rest as much as you can until your next exam. No strenuous activities. Try to find positions that ease discomfort. A small pillow placed on the abdomen may help relieve pain. Something warm on your abdomen (such as a heating pad) may help, but be careful not to burn yourself. Diet Don't force yourself to eat, especially if having cramps, vomiting, or diarrhea. Water is important so you don't get dehydrated. Soup may also be good. Sports drinks may also help, especially if they are not too acidic. Don't drink sugary drinks as this can make things worse. Take liquids in small amounts. Don't guzzle them. Caffeine sometimes makes the (more content not included)...[facility]12-20-2024 Evaluation + Plan note* Assessment & Plan Note - LUCIA Coreas CNP - 02/11/2024 9:59 AM ESTAssociated Problem(s): MOE on CPAP Compliant nightly. [phone] Miscellaneous Notes* Assessment & Plan Note - LUCIA Coreas CNP - 02/11/2024 9:59 AM ESTAssociated Problem(s): MOE on CPAP Compliant nightly. * Assessment & Plan Note - LUCIA Coreas CNP - 02/11/2024 9:58 AM ESTAssociated Problem(s): Paroxysmal atrial fibrillation (HCC) She has done well with no recurrent episodes of AF since her bariatric surgery. Lifestyle factors are being addressed. She has flecainide as pill in pocket if needed. She will call us if she has moreepisodes and we can consider ablation. No OAC due to low stroke risk. * Assessment & Plan Note - LUCIA Coreas CNP - 02/11/2024 9:58 AM ESTAssociated Problem(s): Hypertension Well controlled. Stressed importance of good blood pressure control which will help with control ofher afib. documented in this [facility]12-20-2024 Evaluation + Plan note* Assessment & Plan Note - LUCIA Coreas CNP - 02/11/2024 9:58 AM ESTAssociated Problem(s): Paroxysmal atrial fibrillation (HCC) She has done well with no recurrent episodes of AF since her bariatric surgery. Lifestyle factors are being addressed. She has flecainide as pill in pocket if needed. She will call us if she has moreepisodes and we can consider ablation. No OAC due to low stroke risk. [id number] Evaluation + Plan note* Assessment & Plan Note - LUCIA Coreas CNP - 02/11/2024 9:58 AM ESTAssociated Problem(s): Hypertension Well controlled. Stressed importance of good blood pressure control which will help with control ofher afib. [id number] History of Present illness Narrative* LUCIA Coreas CNP - 02/11/2024 9:30 AM EST Images from the original note were not included. [facility] - [address] [address] Dept: [phone] Dept Visit type: Established : 1995 Reason for Visit: Follow-up Assessment and Plan 1. Paroxysmal atrial fibrillation (HCC) Assessment & Plan: She has done well with no recurrent episodes of AF since her bariatric surgery. Lifestyle factors are being addressed. She has flecainide as pill in pocket if needed. She will call us if she has moreepisodes and we can consider ablation. No OAC due to low stroke risk. Orders: - ECG 12 lead - CLINIC PERFORMED 2. Primary hypertension Assessment & Plan: Well controlled. Stressed importance of good blood pressure control which will help with control ofher afib. 3. MOE on CPAP Assessment & Plan: Compliant nightly. Follow up in about 1 year (around 02/10/2025) for Dr. [place]. Subjective Anne Marie Peterson is a 28 y.o. female with a history of pAF, obesity s/p bariatric surgery 04/2023, HTN, MOE on CPAP, who presents today for 6 month follow up. Since her last visit, she has felt well and denies any recurrent episodes of atrial fibrillation. She does have flecainide pill in pocket on hand but has never had to use. She wears her CPAP nightly.BP has been well controlled. EKG today on my review shows sinus rhythm, 76 bpm. Her chadsvasc score is 2 for female, HTN. Review of Systems Constitutional: Negative for fatigue. Respiratory: Negative for shortness of breath. Cardiovascular: Negative for chest pain and palpitations. Allergies Allergen Reactions Nsaids S/P BARIATRIC SURGERY Outpatient Medications Prior to Visit Medication Sig Dispense Refill calcium citrate 250 MG tablet Take 2 tablets (500 mg) by mouth 3 times daily. Take 2 tablets by mouth three times daily. 180 tablet 11 flecainide (Tambocor) 50 MG tablet Take 3 tablets (150 mg) by mouth Once as needed (Take 3 pills asneeded for episodes of atrial fibrillation). 30 tablet 3 magnesium 30 MG tablet Take 30 mg by mouth 2 times daily. metoprolol tartrate (Lopressor) 25 MG tablet Take 1 tablet (25 mg) by mouth 2 times daily. 60 tablet 11 Multiple Vitamins-Minerals (BARIATRIC MULTIVITAMINS/IRON PO) Take 1 tablet by mouth daily. nystatin (Mycostatin) 596025 UNIT/GM powder Apply topically 2 times daily. Respiratory Therapy Supplies (CareTouch 2 CPAP Hose Dominatrix) misc CPAP 10 cm h20 thiamine (Vitamin B-1) 50 MG tablet Take 1 tablet (50 mg) by mouth daily. Take 1 tablet by mouth daily. 30 tablet 11 VITAMIN D, CHOLECALCIFEROL, PO Take 4,000 Int'l Units by mouth daily. levonorgestrel (Mikie) 13.5 MG IUD by IntraUTERine route Once. omeprazole (PriLOSEC) [address] capsule Take 1 capsule (20 mg) by mouth daily. Do not crush or chew.90 capsule 1 No facility-administered medications prior to visit. 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 Memo Duke / Ernst Chavez [facility] - inguinal hernia LAP GASTRIC BYPASS/SANDRA-EN-Y (HISTORICAL) 05/10/2023 LRYGB - Dr. Campbell LAP,CHOLECYSTECTOMY (HISTORICAL) 2009 Dr. Memo Duke / Ernst Chavez [facility] UPPER GASTROINTESTINAL ENDOSCOPY Family History Problem Relation Name Age of Onset Cancer Mother Hypertension Mother Obesity Mother Heart disease Father Obesity Father Cancer Maternal Grandmother Heart disease Maternal Grandmother Stroke Maternal Grandfather Hypertension Maternal Grandfather Heart disease Maternal Grandfather Diabetes Maternal Grandfather Obesity Maternal Grandfather Anesthesia problems Maternal Grandfather Objective Vitals: 02/11/24 0929 BP: 120/88 BP Location: Left arm Patient Position: Sitting BP Cuff Size: Large adult Pulse: 76 SpO2: 96% Weight: 275 lb (125 kg) Height: 5' 5 (1.651 m) Physical Exam Vitals reviewed. Constitutional: General: She is not in acute distress. Appearance: Normal appearance. She is obese. HENT: Head: Normocephalic and atraumatic. Cardiovascular: Rate and Rhythm: Normal rate and regular rhythm. Heart sounds: Normal heart sounds. No murmur heard. No friction rub. No gallop. Pulmonary: Effort: Pulmonary effort is normal. Breath sounds: Normal breath sounds. No wheezing, rhonchi or rales. Skin: General: Skin is warm and dry. Neurological: Mental Status: She is alert and oriented to person, place, and time. Data Reviewed and Summarized EF BP Date Value Ref Range Status 01/12/2023 65 55 - 100 % Final Review of tests/labs done/ordered within my specialty: EKG in office: See HPI Echo 12/2022: Left Ventricle: Left ventricle size is normal. LVIDd is 4.7 cm. Mildly increased wall thickness. IVSd is 1.0 cm. LVPWd is 1.2 cm. Normal left ventricular systolic function. EF by 2D Simpsons Biplane is 65%. Normal wall motion. Right Ventricle: Right ventricle size is normal. Normal systolic function. Interatrial Septum: Grade I Positive (1 to 9 bubbles). Agitated saline study was positive without provocation. Right to left shunt was noted. Aorta: Normal sized sinuses of Valsalva and ascending aorta. Pericardium: No pericardial effusion. No significant valvular abnormalities. LUCIA Reinoso CNP documented in this [facility]09-23-2024 History of Present illness Narrative* Miley Moise PA-C - 11/15/2023 12:30 PM EDT Images from the original note were not included. HPI, PHYSICAL EXAMINATION & PLAN POST-OP HPI: Patient here today for 6 month post-weight loss surgery follow up The patient is feeling well. Denies nausea, vomiting, dysphagia, or any GERD Sx. Currently is on any PPI. Patient states diet and exercise is going well. Currently is eating 65-75 gm/day protein, andis compliant with prescribed multivitamins and supplements. Eating 5 times per day. Fluid intake 64ounces daily. Admitted 10/28/23-11/02/23 for transaminitis. She has a GI provider closer to home that she follows with- Dr. Malone at [facility] in [place]. States he ordered additional blood work and liver biopsy. States overall she is feeling better. Decreased nausea and vomiting and jaundice has improved. Review of Systems Constitutional: Negative for chills and fever. HENT: Negative for congestion, sore throat and trouble swallowing. Respiratory: Negative for cough and shortness of breath. Cardiovascular: Negative for chest pain and palpitations. Gastrointestinal: Positive for constipation and nausea. Negative for abdominal pain, diarrhea and vomiting. Genitourinary: Negative for dysuria and frequency. Musculoskeletal: Positive for back pain. Negative for arthralgias. Skin: Positive for rash (under pannus and breasts). Negative for color change. Neurological: Negative for dizziness and light-headedness. Psychiatric/Behavioral: The patient is not nervous/anxious. Vital signs are stable. Labs were Completed. All labs were: while admitted, normal recheck in 6 weeks full panel Physical Examination: BP (!) 133/90 Pulse 94 Temp 36.3 C (97.4 F) Resp 16 Ht 5' 5.25 (1.657 m) Comment: [facility] Wt286 lb 6.4 oz (130 kg) Comment: [facility] LMP 10/28/2023 (Exact Date) BMI 47.29 kg/m General: This patient is awake, alert, and oriented, and is in no apparent distress. Respiratory: Non-labored breathing Abdomen: Obese, soft, non-tender, non-distended without masses/ No evidence of abdominal hernia / Incisions consistent with previous surgeries. Head and Neck: Obese, normocephalic and atraumatic Extremities: No restrictions of movement, is ambulatory without assistance. Skin: No rashes or lesions noted. 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 Discussed stopping PPI with patient. Patient is call if any mentioned symptoms return: persistent nausea all day, epigastric pain, pain radiating under either side of rib cage or pain in the middle of their back that is not improving. 2). Labs: completed while admitted and normal- will recheck again in 2 months 3). Diet and Exercise: RD discussed diet with patient during office visit. 4). Follow up at 12 month office visit with standard labs. 5). Psych concerns: no 6). Patient is a woman of childrearing age- 18-50. We discussed the importance of contraception during the first 12-18 months post op, and we discussed that fertility will increase following the procedure. Advised patient to discuss with her OBGYN regarding contraception but that oral contraceptiveefficacy is reduced in LRYGB patients and as a result the use of a vaginal ring, transdermal patch,IUD or progestin only implant or injection is recommended. Patient counseled with good understanding verbalized. Has IUD. 7). Weight loss: Post-op Weight Metrics: %EBWL: % EBWL: 42% Weight Change Since Last Visit: Weight Change: -49.4 lbs Weight Change from Highest Pre-op Weight: Total Weight Change: -116.6 lbs HTN -stable on metoprolol MOE -compliant w CPAP/BiPAP, planning repeat HST Intertrigo -Rx for nystatin powder through PCP Elevated LFTs- Follows with GI -will obtain recent OV note from 11/11/23 Orders Placed This Encounter Procedures Zinc (Sendout) These orders are set for an approximate date - they can be drawn up to 3 months prior to the Expected Date on this Req. Please send results to: [facility] [place] [address] - [phone] And if not done at a [facility], please send to: [address], [facility] Patient Name: Anne Marie Tran 1995 Order Created by : Peggy Friedman MA Standing Status: Future Number of Occurrences: 1 Standing Expiration Date: 11/07/2024 Folate These orders are set for an approximate date - they can be drawn up to 3 months prior to the Expected Date on this Req. Please send results to: [facility] [address] [place] [id number] - [phone] And if not done at a [facility], please send to: [address], [facility] Patient Name: Anne Marie Tran 1995 Order Created by : Peggy Friedman MA Standing Status: Future Number of Occurrences: 1 Standing Expiration Date: 11/07/2024 Iron These orders are set for an approximate date - they can be drawn up to 3 months prior to the Expected Date on this Req. Please send results to: [facility] [address] [place] [address] - [phone] And if not done at a [facility], please send to: [address], [facility] Patient Name: Anne Marie Tran 1995 Order Created by : Peggy Friedman MA Standing Status: Future Number of Occurrences: 1 Standing Expiration Date: 11/07/2024 Ferritin These orders are set for an approximate date - they can be drawn up to 3 months prior to the Expected Date on this Req. Please send results to: [place] [address] - [phone] And if not done at a [facility], please send to: [address], [address] Patient Name: Anne Marie Tran 1995 Order Created by : Peggy Friedman MA Standing Status: Future Number of Occurrences: 1 Standing Expiration Date: 11/07/2024 Magnesium These orders are set for an approximate date - they can be drawn up to 3 months prior to the Expected Date on this Req. Please send results to: [facility] [place] [phone] - [phone] And if not done at a [facility], please send to: [place] [address] Patient Name: Anne Marie Tran 1995 Order Created by : Peggy Friedman MA Standing Status: Future Number of Occurrences: 1 Standing Expiration Date: 11/07/2024 Vitamin D Deficiency Screening (Vit D 25) These orders are set for an approximate date - they can be drawn up to 3 months prior to the Expected Date on this Req. Please send results to: [facility] [address] [place] [address] - [phone] And if not done at a [facility], please send to: [address], [address] Patient Name: Anne Marie Tran 1995 Order Created by : Peggy Friedman MA Standing Status: Future Number of Occurrences: 1 Standing Expiration Date: 11/07/2024 Vitamin B12 These orders are set for an approximate date - they can be drawn up to 3 months prior to the Expected Date on this Req. Please send results to: [facility] [address] [place] [phone] - [phone] And if not done at a [facility], please send to: [address], [address] Patient Name: Anne Marie Tran 1995 Order Created by : Peggy Friedman MA Standing Status: Future Number of Occurrences: 1 Standing Expiration Date: 11/07/2024 Vitamin B1, whole blood ([facility]) These orders are set for an approximate date - they can be drawn up to 3 months prior to the Expected Date on this Req. Please send results to: [facility] [address] [place] [address] - [phone] And if not done at a [facility], please send to: [address], [address] Patient Name: Anne Marie Tran 1995 Order Created by : Peggy Friedman MA Standing Status: Future Number of Occurrences: 1 Standing Expiration Date: 11/07/2024 Lipid panel These orders are set for an approximate date - they can be drawn up to 3 months prior to the Expected Date on this Req. Please send results to: [facility] [address] [place] [phone] - [phone] And if not done at a [facility], please send to: [address], [address] Patient Name: Anne Marie Tran 1995 Order Created by : Peggy Friedman MA Standing Status: Future Number of Occurrences: 1 Standing Expiration Date: 11/07/2024 Comprehensive metabolic panel These orders are set for an approximate date - they can be drawn up to 3 months prior to the Expected Date on this Req. Please send results to: [facility] [address] [place] [phone] - [phone] And if not done at a [facility], please send to: [address], [address] Patient Name: Anne Marie Peterson - 1995 Order Created by : Peggy Friedman MA Standing Status: Future Number of Occurrences: 1 Standing Expiration Date: 11/07/2024 CBC These orders are set for an approximate date - they can be drawn up to 3 months prior to the Expected Date on this Req. Please send results to: [facility] [address] [place] [address] - [phone] And if not done at a [facility], please send to: [address], [address] Patient Name: Anne Marie Tran 1995 Order Created by : Peggy Friedman MA Standing Status: Future Number of Occurrences: 1 Standing Expiration Date: 11/07/2024 Zinc (Sendout) These orders are set for an approximate date - they can be drawn up to 3 months prior to the Expected Date on this Req. Please send results to: [facility] [address] [facility] [place] [address] - [phone] And if not done at a [facility], please send to: [address], [address] Patient Name: Anne Marie Tran 1995 Order Created by : Miley Moise PA-C Standing Status: Future Number of Occurrences: 1 Standing Expiration Date: 11/14/2024 Folate These orders are set for an approximate date - they can be drawn up to 3 months prior to the Expected Date on this Req. Please send results to: [facility] [address] [place] [address] - [phone] And if not done at a [facility], please send to: [facility] - [address], [address] Patient Name: Anne Marie Tran 1995 Order Created by : Miley Moise PA-C Standing Status: Future Number of Occurrences: 1 Standing Expiration Date: 11/14/2024 Iron These orders are set for an approximate date - they can be drawn up to 3 months prior to the Expected Date on this Req. Please send results to: [facility] [address] [facility] [place] [address] - [phone] And if not done at a [facility], please send to: [address], [address] Patient Name: Anne Marie Tran 1995 Order Created by : Miley Moise PA-C Standing Status: Future Number of Occurrences: 1 Standing Expiration Date: 11/14/2024 Ferritin These orders are set for an approximate date - they can be drawn up to 3 months prior to the Expected Date on this Req. Please send results to: [facility] [address] [facility] [place] [address] - [phone] And if not done at a [facility], please send to: [address], [address] Patient Name: Anne Marie Tran 1995 Order Created by : Miley Moise PA-C Standing Status: Future Number of Occurrences: 1 Standing Expiration Date: 11/14/2024 Magnesium These orders are set for an approximate date - they can be drawn up to 3 months prior to the Expected Date on this Req. Please send results to: [facility] [address] [facility] [place] [phone] - [phone] And if not done at a [facility], please send to: [address], [address] Patient Name: Anne Marie Tran 1995 Order Created by : Miley Moise PA-C Standing Status: Future Number of Occurrences: 1 Standing Expiration Date: 11/14/2024 Vitamin D Deficiency Screening (Vit D 25) These orders are set for an approximate date - they can be drawn up to 3 months prior to the Expected Date on this Req. Please send results to: [facility] [address] [place] [phone] - [phone] And if not done at a [facility], please send to: [address], [address] Patient Name: Anne Marie Tran 1995 Order Created by : Miley Moise PA-C Standing Status: Future Number of Occurrences: 1 Standing Expiration Date: 11/14/2024 Vitamin B12 These orders are set for an approximate date - they can be drawn up to 3 months prior to the Expected Date on this Req. Please send results to: [facility] [address] [place] [phone] - [phone] And if not done at a [facility], please send to: [address], [address] Patient Name: Anne Marie Tran 1995 Order Created by : Miley Moise PA-C Standing Status: Future Number of Occurrences: 1 Standing Expiration Date: 11/14/2024 Vitamin B1, whole blood ([facility]) These orders are set for an approximate date - they can be drawn up to 3 months prior to the Expected Date on this Req. Please send results to: [facility] [address] [place] [phone] - [phone] And if not done at a [facility], please send to: [address], [address] Patient Name: Anne Marie Tran 1995 Order Created by : Miley Moise PA-C Standing Status: Future Number of Occurrences: 1 Standing Expiration Date: 11/14/2024 Lipid panel These orders are set for an approximate date - they can be drawn up to 3 months prior to the Expected Date on this Req. Please send results to: [facility] [address] [facility] [place] [address] - [phone] And if not done at a [facility], please send to: [address], [address] Patient Name: Anne Marie Tran 1995 Order Created by : Miley Moise PA-C Standing Status: Future Number of Occurrences: 1 Standing Expiration Date: 11/14/2024 Comprehensive metabolic panel These orders are set for an approximate date - they can be drawn up to 3 months prior to the Expected Date on this Req. Please send results to: [facility] [address] [facility] [place] [address] - [phone] And if not done at a [facility], please send to: [address], [address] Patient Name: Anne Marie Trna 1995 Order Created by : Miley Moise PA-C Standing Status: Future Number of Occurrences: 1 Standing Expiration Date: 11/14/2024 CBC These orders are set for an approximate date - they can be drawn up to 3 months prior to the Expected Date on this Req. Please send results to: [facility] [address] [facility] [place] [phone] - [phone] And if not done at a [facility], please send to: [address], [address] Patient Name: Anne Marie Peterson - 1995 Order Created by : Miley Moise PA-C Standing Status: Future Number of Occurrences: 1 Standing Expiration Date: 11/14/2024 Medications ordered during this encounter: Outpatient Encounter Medications as of 11/15/2023 Medication Sig Dispense Refill calcium citrate 250 MG tablet Take 2 tablets (500 mg) by mouth 3 times daily. Take 2 tablets by mouth three times daily. 180 tablet 11 levonorgestrel (Mikie) 13.5 MG IUD by IntraUTERine route Once. magnesium 30 MG tablet Take 30 mg by mouth 2 times daily. metoprolol tartrate (Lopressor) 25 MG tablet Take 1 tablet (25 mg) by mouth 2 times daily. 60 tablet 11 nystatin (Mycostatin) 407543 UNIT/GM powder Apply topically 2 times daily. omeprazole (PriLOSEC) [address] capsule Take 1 capsule (20 mg) by mouth daily. Do not crush or chew.90 capsule 1 Respiratory Therapy Supplies (CareTouch 2 CPAP Hose Dominatrix) misc CPAP 10 cm h20 thiamine (Vitamin B-1) 50 MG tablet Take 1 tablet (50 mg) by mouth daily. Take 1 tablet by mouth daily. 30 tablet 11 VITAMIN D, CHOLECALCIFEROL, PO Take 4,000 Int'l Units by mouth daily. [DISCONTINUED] Cyanocobalamin (Vitamin B-12) [address] 1 Dose under the tongue daily. [DISCONTINUED] ferrous sulfate 325 (65 Fe) MG tablet Take 1 tablet (325 mg) by mouth 2 times daily.30 tablet 3 flecainide (Tambocor) 50 MG tablet Take 3 tablets (150 mg) by mouth Once as needed (Take 3 pills asneeded for episodes of atrial fibrillation). (Patient not taking: Reported on 11/15/2023) 30 tablet 3 Multiple Vitamins-Minerals (BARIATRIC MULTIVITAMINS/IRON PO) Take 1 tablet by mouth daily. [DISCONTINUED] Pediatric Multivitamins-Iron (FLINTSTONES PLUS IRON PO) Take 2 tablets by mouth daily. [] ondansetron (Zofran) injection 4 mg [] ondansetron (Zofran) injection 4 mg [] potassium chloride 40 mEq in NS 500 mL IVPB (premix) [] potassium chloride CR (Klor-Con M10) ER tablet 40 mEq [] sodium chloride 0.9 % 1,000 mL with multiple vitamin 10 mL, thiamine 100 mg, folic acid 1mg infusion [] sodium chloride 0.9 % bolus 1,000 mL [] sodium chloride 0.9 % bolus 1,000 mL [DISCONTINUED] acetaminophen (Tylenol) suppository 650 mg [DISCONTINUED] acetaminophen (Tylenol) tablet 650 mg [DISCONTINUED] calcium citrate (Calcitrate) tablet 475 mg [DISCONTINUED] cholecalciferol (Vitamin D-3) tablet 125 mcg [DISCONTINUED] cyanocobalamin (Vitamin B-12) injection 1,000 mcg [DISCONTINUED] enoxaparin (Lovenox) syringe 30 mg [DISCONTINUED] ferrous sulfate tablet 325 mg [DISCONTINUED] flecainide (Tambocor) tablet 150 mg [DISCONTINUED] HYDROmorphone (Dilaudid) injection 0.5 mg [DISCONTINUED] HYDROmorphone (Dilaudid) injection 1 mg [DISCONTINUED] ibuprofen tablet 600 mg [DISCONTINUED] lactated Ringer's infusion [DISCONTINUED] levonorgestrel (Mikie) 13.5 MG IUD [DISCONTINUED] magnesium chloride EC tablet 64 mg [DISCONTINUED] metoprolol tartrate (Lopressor) tablet 25 mg [DISCONTINUED] metoprolol tartrate (Lopressor) tablet 25 mg [DISCONTINUED] naloxone (Narcan) injection 0.4 mg [DISCONTINUED] ondansetron (Zofran) injection 4 mg [DISCONTINUED] ondansetron (Zofran) injection 4 mg [DISCONTINUED] ondansetron ODT (Zofran-ODT) disintegrating tablet 4 mg [DISCONTINUED] ondansetron ODT (Zofran-ODT) disintegrating tablet 4 mg [DISCONTINUED] pantoprazole (ProtoNix) EC tablet 40 mg [DISCONTINUED] polyethylene glycol (PEG) 3350 (Miralax) packet 17 g [DISCONTINUED] polyethylene glycol (PEG) 3350 (Miralax) packet 17 g [DISCONTINUED] polyethylene glycol (PEG) 3350 (Miralax) packet 17 g [DISCONTINUED] therapeutic multivitamin-minerals (Theragran-M) tablet [DISCONTINUED] thiamine (Vitamin B1) tablet 50 mg No facility-administered encounter medications on file as of 11/15/2023. Visit Diagnoses: 1. Intestinal malabsorption, unspecified type 2. Deficiency of multiple nutrient elements 3. History of gastric bypass 4. Back pain, unspecified back location, unspecified back pain laterality, unspecified chronicity 5. Primary hypertension 6. MOE on CPAP 7. Morbid obesity with BMI of 45.0-49.9, adult (HCC) 8. Elevated LFTs Current Medications: Patient's Medications New Prescriptions No medications on file Previous Medications CALCIUM CITRATE 250 MG TABLET Take 2 tablets (500 mg) by mouth 3 times daily. Take 2 tablets by mouth three times daily. FLECAINIDE (TAMBOCOR) 50 MG TABLET Take 3 tablets (150 mg) by mouth Once as needed (Take 3 pills asneeded for episodes of atrial fibrillation). LEVONORGESTREL (MIKIE) 13.5 MG IUD by IntraUTERine route Once. MAGNESIUM 30 MG TABLET Take 30 mg by mouth 2 times daily. METOPROLOL TARTRATE (LOPRESSOR) 25 MG TABLET Take 1 tablet (25 mg) by mouth 2 times daily. MULTIPLE VITAMINS-MINERALS (BARIATRIC MULTIVITAMINS/IRON PO) Take 1 tablet by mouth daily. NYSTATIN (MYCOSTATIN) 238923 UNIT/GM POWDER Apply topically 2 times daily. OMEPRAZOLE (PRILOSEC) [address] CAPSULE Take 1 capsule (20 mg) by mouth daily. Do not crush or chew. RESPIRATORY THERAPY SUPPLIES (CARETOUCH 2 CPAP HOSE PRODUCE SHIPPER) MISC CPAP 10 cm h20 THIAMINE (VITAMIN B-1) 50 MG TABLET Take 1 tablet (50 mg) by mouth daily. Take 1 tablet by mouth daily. VITAMIN D, CHOLECALCIFEROL, PO Take 4,000 Int'l Units by mouth daily. Modified Medications No medications on file Discontinued Medications CYANOCOBALAMIN (VITAMIN B-12) [address] 1 Dose under the tongue daily. FERROUS SULFATE 325 (65 FE) MG TABLET Take 1 tablet (325 mg) by mouth 2 times daily. * Kimberley Frank RD - 11/15/2023 12:30 PM EDT [facility] > 6 MONTH POST-OPERATIVE DIETITIAN VISIT Date: 11/15/23 Patient's weight decreased by: 116.6 lbs Patient does consume 5-6 small meals daily Patient s portions are adequate for current diet: -1 cup Protein requirements discussed- currently consuming estimate about 50-60 grams protein daily. Current protein sources: [place] yogurt. Cheese, meat sticks, chicken, lean beef Recommendations:use Isopure protein powder (flavored and unflavored) Fluid requirements discussed. Current Fluid Intake: at least 64 oz/day Patient does drink sugar-free, caffeine-free and carbonation-free fluids only. Patient does not wait 30 minutes before and after meals to drink (15 minutes) Exercise activities discussed. Patient does currently exercise. She was reminded that regular exercise is critical part of a successful outcome following weight loss surgery. (2-3 miles per day walking outside around track) Behavioral/Emotional changes reviewed. Patient does feel comfortable with changes in eating behaviors and associated emotional changes. She was reminded that psychological counseling is available through the [facility] post-[facility]. Recent Nutrient Concerns and Vitamin Supplementation Changes: Vitamin/Mineral levels WNL. Pt compliant with vitamin and mineral protocol. Notes/Comments: Pt doing well. See above recommendations. Pt encouraged to call/Mychart with questions. Visit completed by: Kimberley Frank RD documented in this [facility]09-23-2024 History of Present illness Narrative* Miley Moise PA-C - 11/15/2023 12:30 PM EDT Images from the original note were not included. HPI, PHYSICAL EXAMINATION & PLAN POST-OP HPI: Patient here today for 6 month post-weight loss surgery follow up The patient is feeling well. Denies nausea, vomiting, dysphagia, or any GERD Sx. Currently is on any PPI. Patient states diet and exercise is going well. Currently is eating 65-75 gm/day protein, andis compliant with prescribed multivitamins and supplements. Eating 5 times per day. Fluid intake 64ounces daily. Admitted 10/28/23-11/02/23 for transaminitis. She has a GI provider closer to home that she follows with- Dr. Malone at [facility] in [place]. States he ordered additional blood work and liver biopsy. States overall she is feeling better. Decreased nausea and vomiting and jaundice has improved. Review of Systems Constitutional: Negative for chills and fever. HENT: Negative for congestion, sore throat and trouble swallowing. Respiratory: Negative for cough and shortness of breath. Cardiovascular: Negative for chest pain and palpitations. Gastrointestinal: Positive for constipation and nausea. Negative for abdominal pain, diarrhea and vomiting. Genitourinary: Negative for dysuria and frequency. Musculoskeletal: Positive for back pain. Negative for arthralgias. Skin: Positive for rash (under pannus and breasts). Negative for color change. Neurological: Negative for dizziness and light-headedness. Psychiatric/Behavioral: The patient is not nervous/anxious. Vital signs are stable. Labs were Completed. All labs were: while admitted, normal recheck in 6 weeks full panel Physical Examination: BP (!) 133/90 Pulse 94 Temp 36.3 C (97.4 F) Resp 16 Ht 5' 5.25 (1.657 m) Comment: [facility] Wt286 lb 6.4 oz (130 kg) Comment: [facility] LMP 10/28/2023 (Exact Date) BMI 47.29 kg/m General: This patient is awake, alert, and oriented, and is in no apparent distress. Respiratory: Non-labored breathing Abdomen: Obese, soft, non-tender, non-distended without masses/ No evidence of abdominal hernia / Incisions consistent with previous surgeries. Head and Neck: Obese, normocephalic and atraumatic Extremities: No restrictions of movement, is ambulatory without assistance. Skin: No rashes or lesions noted. 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 Discussed stopping PPI with patient. Patient is call if any mentioned symptoms return: persistent nausea all day, epigastric pain, pain radiating under either side of rib cage or pain in the middle of their back that is not improving. 2). Labs: completed while admitted and normal- will recheck again in 2 months 3). Diet and Exercise: RD discussed diet with patient during office visit. 4). Follow up at 12 month office visit with standard labs. 5). Psych concerns: no 6). Patient is a woman of childrearing age- 18-50. We discussed the importance of contraception during the first 12-18 months post op, and we discussed that fertility will increase following the procedure. Advised patient to discuss with her OBGYN regarding contraception but that oral contraceptiveefficacy is reduced in LRYGB patients and as a result the use of a vaginal ring, transdermal patch,IUD or progestin only implant or injection is recommended. Patient counseled with good understanding verbalized. Has IUD. 7). Weight loss: Post-op Weight Metrics: %EBWL: % EBWL: 42% Weight Change Since Last Visit: Weight Change: -49.4 lbs Weight Change from Highest Pre-op Weight: Total Weight Change: -116.6 lbs HTN -stable on metoprolol MOE -compliant w CPAP/BiPAP, planning repeat HST Intertrigo -Rx for nystatin powder through PCP Elevated LFTs- Follows with GI -will obtain recent OV note from 11/11/23 Orders Placed This Encounter Procedures Zinc (Sendout) These orders are set for an approximate date - they can be drawn up to 3 months prior to the Expected Date on this Req. Please send results to: [place] [address] - [phone] And if not done at a [facility], please send to: [place] [address] Patient Name: Anne Marie Peterson - 1995 Order Created by : Peggy Friedman MA Standing Status: Future Number of Occurrences: 1 Standing Expiration Date: 11/07/2024 Folate These orders are set for an approximate date - they can be drawn up to 3 months prior to the Expected Date on this Req. Please send results to: [place] [address] - [phone] And if not done at a [facility], please send to: [address], [address], [address] Patient Name: Anne Marie Peterson - 1995 Order Created by : Peggy Friedman MA Standing Status: Future Number of Occurrences: 1 Standing Expiration Date: 11/07/2024 Iron These orders are set for an approximate date - they can be drawn up to 3 months prior to the Expected Date on this Req. Please send results to: [facility] [address] [place] [address] - [phone] And if not done at a [facility], please send to: [address], [address] Patient Name: Anne Marie Tran 1995 Order Created by : Peggy Friedman MA Standing Status: Future Number of Occurrences: 1 Standing Expiration Date: 11/07/2024 Ferritin These orders are set for an approximate date - they can be drawn up to 3 months prior to the Expected Date on this Req. Please send results to: [facility] [address] [place] [address] - [phone] And if not done at a [facility], please send to: [address], [address] Patient Name: Anne Marie Tran 1995 Order Created by : Peggy Friedman MA Standing Status: Future Number of Occurrences: 1 Standing Expiration Date: 11/07/2024 Magnesium These orders are set for an approximate date - they can be drawn up to 3 months prior to the Expected Date on this Req. Please send results to: [facility] [address] [place] [address] - [phone] And if not done at a [facility], please send to: [address], [address] Patient Name: Anne Marie Tran 1995 Order Created by : Peggy Friedman MA Standing Status: Future Number of Occurrences: 1 Standing Expiration Date: 11/07/2024 Vitamin D Deficiency Screening (Vit D 25) These orders are set for an approximate date - they can be drawn up to 3 months prior to the Expected Date on this Req. Please send results to: [facility] [address] [place] [id number] - [phone] And if not done at a [facility], please send to: [address], [address] Patient Name: Anne Marie Tran 1995 Order Created by : Peggy Friedman MA Standing Status: Future Number of Occurrences: 1 Standing Expiration Date: 11/07/2024 Vitamin B12 These orders are set for an approximate date - they can be drawn up to 3 months prior to the Expected Date on this Req. Please send results to: [facility] [address] [place] [id number] - [phone] And if not done at a [facility], please send to: [address], [address] Patient Name: Anne Marie Tran 1995 Order Created by : Peggy Friedman MA Standing Status: Future Number of Occurrences: 1 Standing Expiration Date: 11/07/2024 Vitamin B1, whole blood ([facility]) These orders are set for an approximate date - they can be drawn up to 3 months prior to the Expected Date on this Req. Please send results to: [facility] [address] [place] [id number] - [phone] And if not done at a [facility], please send to: [address], [address] Patient Name: Anne Marie Tran 1995 Order Created by : Peggy Friedman MA Standing Status: Future Number of Occurrences: 1 Standing Expiration Date: 11/07/2024 Lipid panel These orders are set for an approximate date - they can be drawn up to 3 months prior to the Expected Date on this Req. Please send results to: [facility] [place] [address] - [phone] And if not done at a [facility], please send to: [address], [address] Patient Name: Anne Marie Tran 1995 Order Created by : Peggy Friedman MA Standing Status: Future Number of Occurrences: 1 Standing Expiration Date: 11/07/2024 Comprehensive metabolic panel These orders are set for an approximate date - they can be drawn up to 3 months prior to the Expected Date on this Req. Please send results to: [address] [facility] [place] [address] - [phone] And if not done at a [facility], please send to: [address], [address] Patient Name: Anne Marie Tran 1995 Order Created by : Peggy Friedman MA Standing Status: Future Number of Occurrences: 1 Standing Expiration Date: 11/07/2024 CBC These orders are set for an approximate date - they can be drawn up to 3 months prior to the Expected Date on this Req. Please send results to: [address] [facility] [place] [address] - [phone] And if not done at a [facility], please send to: [address], [address] Patient Name: Anne Marie Tran 1995 Order Created by : Peggy Friedman MA Standing Status: Future Number of Occurrences: 1 Standing Expiration Date: 11/07/2024 Zinc (Sendout) These orders are set for an approximate date - they can be drawn up to 3 months prior to the Expected Date on this Req. Please send results to: [facility] [address] [place] [address] - [phone] And if not done at a [facility], please send to: [address], [address] Patient Name: Anne Marie Tran 1995 Order Created by : Miley Moise PA-C Standing Status: Future Number of Occurrences: 1 Standing Expiration Date: 11/14/2024 Folate These orders are set for an approximate date - they can be drawn up to 3 months prior to the Expected Date on this Req. Please send results to: [facility] [place] [address] - [phone] And if not done at a [facility], please send to: [address], [facility] Patient Name: Anne Marie Tran 1995 Order Created by : Miley Moise PA-C Standing Status: Future Number of Occurrences: 1 Standing Expiration Date: 11/14/2024 Iron These orders are set for an approximate date - they can be drawn up to 3 months prior to the Expected Date on this Req. Please send results to: [facility] [address] [place] [address] - [phone] And if not done at a [facility], please send to: [address], [address] Patient Name: Anne Marie Tran 1995 Order Created by : Miley Moise PA-C Standing Status: Future Number of Occurrences: 1 Standing Expiration Date: 11/14/2024 Ferritin These orders are set for an approximate date - they can be drawn up to 3 months prior to the Expected Date on this Req. Please send results to: [address] [place] [address] - [phone] And if not done at a [facility], please send to: [address], [address] Patient Name: Anne Marie Tran 1995 Order Created by : Miley Moise PA-C Standing Status: Future Number of Occurrences: 1 Standing Expiration Date: 11/14/2024 Magnesium These orders are set for an approximate date - they can be drawn up to 3 months prior to the Expected Date on this Req. Please send results to: [address] [place] [phone] - [phone] And if not done at a [facility], please send to: [address], [address] Patient Name: Anne Marie Tran 1995 Order Created by : Miley Moise PA-C Standing Status: Future Number of Occurrences: 1 Standing Expiration Date: 11/14/2024 Vitamin D Deficiency Screening (Vit D 25) These orders are set for an approximate date - they can be drawn up to 3 months prior to the Expected Date on this Req. Please send results to: [address] [place] [address] - [phone] And if not done at a [facility], please send to: [address], [address] Patient Name: Anne Marie Tran 1995 Order Created by : Miley Moise PA-C Standing Status: Future Number of Occurrences: 1 Standing Expiration Date: 11/14/2024 Vitamin B12 These orders are set for an approximate date - they can be drawn up to 3 months prior to the Expected Date on this Req. Please send results to: [facility] [address] [place] [address] - [phone] And if not done at a [facility], please send to: [address], [address] Patient Name: Anne Marie Peterson - 1995 Order Created by : Miley Moise PA-C Standing Status: Future Number of Occurrences: 1 Standing Expiration Date: 11/14/2024 Vitamin B1, whole blood ([facility]) These orders are set for an approximate date - they can be drawn up to 3 months prior to the Expected Date on this Req. Please send results to: [facility] [place] [phone] - [phone] And if not done at a [facility], please send to: [address], [address] Patient Name: Anne Marie Tran 1995 Order Created by : Miley Moise PA-C Standing Status: Future Number of Occurrences: 1 Standing Expiration Date: 11/14/2024 Lipid panel These orders are set for an approximate date - they can be drawn up to 3 months prior to the Expected Date on this Req. Please send results to: [address] [place] [address] - [phone] And if not done at a [facility], please send to: [address], [address] Patient Name: Anne Marie Tran 1995 Order Created by : Miley Moise PA-C Standing Status: Future Number of Occurrences: 1 Standing Expiration Date: 11/14/2024 Comprehensive metabolic panel These orders are set for an approximate date - they can be drawn up to 3 months prior to the Expected Date on this Req. Please send results to: [address] [place] [id number] - [phone] And if not done at a [facility], please send to: [address], [facility] [address] [facility], [address] Patient Name: Anne Marie Petreson - 1995 Order Created by : Miley Moise PA-C Standing Status: Future Number of Occurrences: 1 Standing Expiration Date: 11/14/2024 CBC These orders are set for an approximate date - they can be drawn up to 3 months prior to the Expected Date on this Req. Please send results to: [address] [place] [address] - [phone] And if not done at a [facility], please send to: [address], [facility] [address] [facility], [address] Patient Name: Anne Marie Peterson - 1995 Order Created by : Miley Moise PA-C Standing Status: Future Number of Occurrences: 1 Standing Expiration Date: 11/14/2024 Medications ordered during this encounter: Outpatient Encounter Medications as of 11/15/2023 Medication Sig Dispense Refill calcium citrate 250 MG tablet Take 2 tablets (500 mg) by mouth 3 times daily. Take 2 tablets by mouth three times daily. 180 tablet 11 levonorgestrel (Mikie) 13.5 MG IUD by IntraUTERine route Once. magnesium 30 MG tablet Take 30 mg by mouth 2 times daily. metoprolol tartrate (Lopressor) 25 MG tablet Take 1 tablet (25 mg) by mouth 2 times daily. 60 tablet 11 nystatin (Mycostatin) 362133 UNIT/GM powder Apply topically 2 times daily. omeprazole (PriLOSEC) [address] capsule Take 1 capsule (20 mg) by mouth daily. Do not crush or chew.90 capsule 1 Respiratory Therapy Supplies (CareTouch 2 CPAP Hose Dominatrix) misc CPAP 10 cm h20 thiamine (Vitamin B-1) 50 MG tablet Take 1 tablet (50 mg) by mouth daily. Take 1 tablet by mouth daily. 30 tablet 11 VITAMIN D, CHOLECALCIFEROL, PO Take 4,000 Int'l Units by mouth daily. [DISCONTINUED] Cyanocobalamin (Vitamin B-12) [address] 1 Dose under the tongue daily. [DISCONTINUED] ferrous sulfate 325 (65 Fe) MG tablet Take 1 tablet (325 mg) by mouth 2 times daily.30 tablet 3 flecainide (Tambocor) 50 MG tablet Take 3 tablets (150 mg) by mouth Once as needed (Take 3 pills asneeded for episodes of atrial fibrillation). (Patient not taking: Reported on 11/15/2023) 30 tablet 3 Multiple Vitamins-Minerals (BARIATRIC MULTIVITAMINS/IRON PO) Take 1 tablet by mouth daily. [DISCONTINUED] Pediatric Multivitamins-Iron (FLINTSTONES PLUS IRON PO) Take 2 tablets by mouth daily. [] ondansetron (Zofran) injection 4 mg [] ondansetron (Zofran) injection 4 mg [] potassium chloride 40 mEq in NS 500 mL IVPB (premix) [] potassium chloride CR (Klor-Con M10) ER tablet 40 mEq [] sodium chloride 0.9 % 1,000 mL with multiple vitamin 10 mL, thiamine 100 mg, folic acid 1mg infusion [] sodium chloride 0.9 % bolus 1,000 mL [] sodium chloride 0.9 % bolus 1,000 mL [DISCONTINUED] acetaminophen (Tylenol) suppository 650 mg [DISCONTINUED] acetaminophen (Tylenol) tablet 650 mg [DISCONTINUED] calcium citrate (Calcitrate) tablet 475 mg [DISCONTINUED] cholecalciferol (Vitamin D-3) tablet 125 mcg [DISCONTINUED] cyanocobalamin (Vitamin B-12) injection 1,000 mcg [DISCONTINUED] enoxaparin (Lovenox) syringe 30 mg [DISCONTINUED] ferrous sulfate tablet 325 mg [DISCONTINUED] flecainide (Tambocor) tablet 150 mg [DISCONTINUED] HYDROmorphone (Dilaudid) injection 0.5 mg [DISCONTINUED] HYDROmorphone (Dilaudid) injection 1 mg [DISCONTINUED] ibuprofen tablet 600 mg [DISCONTINUED] lactated Ringer's infusion [DISCONTINUED] levonorgestrel (Mikie) 13.5 MG IUD [DISCONTINUED] magnesium chloride EC tablet 64 mg [DISCONTINUED] metoprolol tartrate (Lopressor) tablet 25 mg [DISCONTINUED] metoprolol tartrate (Lopressor) tablet 25 mg [DISCONTINUED] naloxone (Narcan) injection 0.4 mg [DISCONTINUED] ondansetron (Zofran) injection 4 mg [DISCONTINUED] ondansetron (Zofran) injection 4 mg [DISCONTINUED] ondansetron ODT (Zofran-ODT) disintegrating tablet 4 mg [DISCONTINUED] ondansetron ODT (Zofran-ODT) disintegrating tablet 4 mg [DISCONTINUED] pantoprazole (ProtoNix) EC tablet 40 mg [DISCONTINUED] polyethylene glycol (PEG) 3350 (Miralax) packet 17 g [DISCONTINUED] polyethylene glycol (PEG) 3350 (Miralax) packet 17 g [DISCONTINUED] polyethylene glycol (PEG) 3350 (Miralax) packet 17 g [DISCONTINUED] therapeutic multivitamin-minerals (Theragran-M) tablet [DISCONTINUED] thiamine (Vitamin B1) tablet 50 mg No facility-administered encounter medications on file as of 11/15/2023. Visit Diagnoses: 1. Intestinal malabsorption, unspecified type 2. Deficiency of multiple nutrient elements 3. History of gastric bypass 4. Back pain, unspecified back location, unspecified back pain laterality, unspecified chronicity 5. Primary hypertension 6. MOE on CPAP 7. Morbid obesity with BMI of 45.0-49.9, adult (HCC) 8. Elevated LFTs Current Medications: Patient's Medications New Prescriptions No medications on file Previous Medications CALCIUM CITRATE 250 MG TABLET Take 2 tablets (500 mg) by mouth 3 times daily. Take 2 tablets by mouth three times daily. FLECAINIDE (TAMBOCOR) 50 MG TABLET Take 3 tablets (150 mg) by mouth Once as needed (Take 3 pills asneeded for episodes of atrial fibrillation). LEVONORGESTREL (MIKIE) 13.5 MG IUD by IntraUTERine route Once. MAGNESIUM 30 MG TABLET Take 30 mg by mouth 2 times daily. METOPROLOL TARTRATE (LOPRESSOR) 25 MG TABLET Take 1 tablet (25 mg) by mouth 2 times daily. MULTIPLE VITAMINS-MINERALS (BARIATRIC MULTIVITAMINS/IRON PO) Take 1 tablet by mouth daily. NYSTATIN (MYCOSTATIN) 823820 UNIT/GM POWDER Apply topically 2 times daily. OMEPRAZOLE (PRILOSEC) [address] CAPSULE Take 1 capsule (20 mg) by mouth daily. Do not crush or chew. RESPIRATORY THERAPY SUPPLIES (CARETOUCH 2 CPAP HOSE PRODUCE SHIPPER) MISC CPAP 10 cm h20 THIAMINE (VITAMIN B-1) 50 MG TABLET Take 1 tablet (50 mg) by mouth daily. Take 1 tablet by mouth daily. VITAMIN D, CHOLECALCIFEROL, PO Take 4,000 Int'l Units by mouth daily. Modified Medications No medications on file Discontinued Medications CYANOCOBALAMIN (VITAMIN B-12) [address] 1 Dose under the tongue daily. FERROUS SULFATE 325 (65 FE) MG TABLET Take 1 tablet (325 mg) by mouth 2 times daily. * Kimberley Frank RD - 11/15/2023 12:30 PM EDT [facility] > 6 MONTH POST-OPERATIVE DIETITIAN VISIT Date: 11/15/23 Patient's weight decreased by: 116.6 lbs Patient does consume 5-6 small meals daily Patient s portions are adequate for current diet: -1 cup Protein requirements discussed- currently consuming estimate about 50-60 grams protein daily. Current protein sources: [place] yogurt. Cheese, meat sticks, chicken, lean beef Recommendations:use Isopure protein powder (flavored and unflavored) Fluid requirements discussed. Current Fluid Intake: at least 64 oz/day Patient does drink sugar-free, caffeine-free and carbonation-free fluids only. Patient does not wait 30 minutes before and after meals to drink (15 minutes) Exercise activities discussed. Patient does currently exercise. She was reminded that regular exercise is critical part of a successful outcome following weight loss surgery. (2-3 miles per day walking outside around track) Behavioral/Emotional changes reviewed. Patient does feel comfortable with changes in eating behaviors and associated emotional changes. She was reminded that psychological counseling is available through [facility] post[facility]. Recent Nutrient Concerns and Vitamin Supplementation Changes: Vitamin/Mineral levels WNL. Pt compliant with vitamin and mineral protocol. Notes/Comments: Pt doing well. See above recommendations. Pt encouraged to call/Mychart with questions. Visit completed by: Kimberley Frank RD documented in this [facility]09-23-2024 Miscellaneous Notes* Addendum Note - Jessa Colon - 11/15/2023 12:30 PM EDTAddended by: JESSA COLON on: 02/11/2024 10:11 AM Modules accepted: Orders documented in this [facility]09-23-2024 Note* Addendum Note - Jessa Colon - 11/15/2023 12:30 PM EDTAddended by: JESSA COLON on: 02/11/2024 10:11 AM Modules accepted: Orders [id number] Telephone encounter Note* Telephone Encounter - Kimberley Frank RD - 11/08/2023 10:25 AM EDT DOS 05/10/23 LRYGB JZ 11/15/2023-6M POP 11/01/2023 Zinc: 73 (WNL) Vitamin B1: 91 (WNL) 10/29/2023 Vitamin B12: 713 (WNL) MyChart sent to pt to inform pt of normal labs. [facility] Phone: 1(100) 490-855809-16-2024 Telephone encounter Note* Telephone Encounter - Kimberley Frank RD - 11/08/2023 10:25 AM EDT ----- Message from Memo Campbell MD sent at 10/29/2023 11:09 AM EDT ----- Camacho Chu I ordered annual labs including B1, B12 and zinc, please follow-up on this as an outpatient. Thanks [place] [id number] Miscellaneous Notes* Telephone Encounter - Kimberley Frank RD - 11/08/2023 10:25 AM EDT DOS 05/10/23 LRYGB JZ 11/15/2023-6M POP 11/01/2023 Zinc: 73 (WNL) Vitamin B1: 91 (WNL) 10/29/2023 Vitamin B12: 713 (WNL) MyChart sent to pt to inform pt of normal labs. * Telephone Encounter - Kimberley Frank RD - 11/08/2023 10:25 AM EDT ----- Message from Memo Campbell MD sent at 10/29/2023 11:09 AM EDT ----- Camacho Chu I ordered annual labs including B1, B12 and zinc, please follow-up on this as an outpatient. Thanks documented in this [facility]09-13-2024 Telephone encounter Note* Telephone Encounter - Orestes Gibson - 11/05/2023 9:53 AM EDT Called and spoke with Dr. Bhatia office in regards to pt follow up appoitnment. Office is already seeing her next week and they requested any labs she had done while in the ED. Faxed labs and scanned into media. TY [facility] [id number] Miscellaneous Notes* Telephone Encounter - Orestes Gibson - 11/05/2023 9:53 AM EDT Called and spoke with Dr. Bhatia office in regards to pt follow up appoitnment. Office is already seeing her next week and they requested any labs she had done while in the ED. Faxed labs and scanned into media. TY documented in this [facility]09-11-2024 Telephone encounter Note* Telephone Encounter - LUCIA Lamb CNP - 11/03/2023 10:42 AM EDT Noted, thanks [facility] [employer] Phone: 1(623) 471-326409-11-2024 Miscellaneous Notes* Telephone Encounter - LUCIA Lamb CNP - 11/03/2023 10:42 AM EDT Noted, thanks * Telephone Encounter - Zully Anton RN - 11/03/2023 7:22 AM EDT Patient discharged to home on 11/02/23. Follow up scheduled with [facility] on 11/14/33. * Telephone Encounter - Miley Moise PA-C - 10/29/2023 8:10 AM EDT Noted, thanks * Telephone Encounter - Zully Anton RN - 10/29/2023 7:52 AM EDT Linette[facility] LRYGB 10/28/23 Patient presented to ED on 10/28/23 with nausea, weakness and dizziness. Of note, patient was seen inED on 10/26/23 with plan for admission related to abdominal pain, fever, and anorexia with CT showingpancreatitis but left AMA for reported child day care provider concerns. Patient is currently admitted. Will continue to monitor. * Telephone Encounter - Zully Anton RN - 10/28/2023 8:47 AM EDT Noted, thank you. * Telephone Encounter - Balwinder Weeks RN - 10/28/2023 8:30 AM EDT After review by MZ, pt should return to ER. Call to pt and she is on her way to the ER. States she does live 1.5 hrs away. Will route to [facility] as FYI. * Telephone Encounter - Balwinder Weeks RN - 10/28/2023 8:12 AM EDT DOS 05/10/23 LRYGB JZ Last OV-08/11/23 with [facility], next 11/15/23 with [facility] Pt was seen in ER on 10/26/23 and was to be admitted with transaminitis. Will send to MZ for review. * Telephone Encounter - Jolly Dodd RN - 10/28/2023 6:51 AM EDT S: Patient spoke with [facility] nurse regarding pancreatitis. B: Onset of symptoms 10/20/23. ER 10/26/23. Rouen Y 05/10/23. A: In the ER and they wanted to admit her and discharged self d/t child day care provider and for pancreatitis and possible liver obstructions. Not feeling any better, last ate 8 days ago and having trouble getting fluids in, taking Zofran. Having no abd pain No vomiting, had dry heaves this am, nauseam trying to get fluids in, not doing well with getting fluids in, has not eaten in 8 days ,mouth is very dry, urinating dark to brown in color. R: Instructed to go back to ER for eval. Patient understands care advice. No further needs at this time. Patient instructed to call back with new or worsening symptoms. Reason for Disposition [1] Drinking very little AND [2] dehydration suspected (e.g., no urine > 12 hours, very dry mouth, very lightheaded) Protocols used: [id number] documented in this [facility]SDay[facility] [id number] Telephone encounter Note* Telephone Encounter - Zully Anton RN - 11/03/2023 7:22 AM EDT Patient discharged to home on 11/02/23. Follow up scheduled with MZ on 11/14/33. [facility] [id number] Hospital course Narrative* Brandy Ray MD - 11/02/2023 5:06 PM EDT Hospitalist Discharge Summary Anne Marie Peterson : 1995 Admit date: 10/28/2023 Discharge date: 11/02/2023 Admitting Physician: Manuel Villarreal MD Primary Care Physician: Xenia Lane Visit Status: Inpatient admission Code Status: Full Code Acute, acute on chronic, unstable/uncontrolled chronic problems/discharge diagnoses: # Nausea, vomiting - improved/resolved # Transaminitis - MRCP showed marked diffuse hepatic steatosis, hepatosplenomegaly progressed sinceprior, subtle edema within and adjacent to head and uncinate process of pancreas, new moderate periportal edema, periportal and gastrohepatic ligament lymphadenopathy progressed since prior. IgG eleva munira. (+) CMV IgM and IgG. (+) EBV IgM. # Hyperbilirubinemia # Hyponatremia, mild # Hypokalemia, improved Stable chronic problems affecting care, new non-acute discharge diagnoses: # Hx of atrial fibrillation - on lopressor 25 mg BID # MOE with possible obesity hypoventilation syndrome # Morbid obesity # Hx of gastric bypass (04/2023) # PTSD Past Medical History: Diagnosis Date Anemia Atrial fibrillation (HCC) 2 episodes Back pain COVID-19 vaccine series completed 10/2020 Daytime sleepiness Deficiency of multiple nutrient elements 06/17/2023 SANTOS (dyspnea on exertion) Fatigue History of kidney stones History of UTI Incontinence Intestinal malabsorption 06/17/2023 Joint pain, knee PTSD (post-traumatic stress disorder) Sleep apnea, obstructive uses cpap Procedures: None Hospital Course: Anne Marie Peterson is a 28 y.o. female with history of atrial fibrillation, MOE, morbid obesity, gastric bypass (04/2023), PTSD who presented to ED on 10/28/23 for nausea, vomiting, and epigastric abdominal pain. Of note, patient was admitted to [facility] from 10/25-10/26 for abdominal pain but left AMA at the time. In ED this time, initial labs significant for Na 134, AST/ALT 475/280, ALP 707, tbili 4.0 with elevated direct bili 1.6, lipase 135 wnl, WBC 10.0 wnl, Hb 12.3. Given IVF's in ED. Admitted for further evaluation and management. General Surgery consulted/evaluated. GI consulted/evaluated. MRCP showed marked diffuse hepatic steatosis, hepatosplenomegaly progressed since prior, subtle edema within and adjacent to head and uncinate process of pancreas, new moderate periportal edema, periportal andgastrohepatic ligament lymphadenopathy progressed since prior. IgG elevated. Elevated CMV IgM and IgG. (+) EBV IgM. US liver doppler wnl. GI recommended outpatient follow-up and ID evaluation. ID cons ulted/evaluated and noted (+) CMV IgM/IgG likely to represent recent/past infection and patient does not meet criteria for treatment. Patient with improving LFT's, clinically improved, and requested to be discharged home. Patient is discharged in improved and stable condition. See discharge diagnoses list above and medication adjustments below in med rec. Consults: IP CONSULT TO GENERAL SURGERY IP CONSULT TO GI IP CONSULT TO INFECTIOUS DISEASES Discharge Instructions: Diet: Dietary Orders (From admission, onward) Start Ordered 10/31/23 0922 Adult diet Regular Diet effective now Question: Diet type Answer: Regular 10/31/23 0921 Activity: as tolerated Recommended Outpatient Tests: Disposition: Patient discharged in stable condition to Home. Greater than 31 minutes spent discharging the patient and coming up with patient discharge plan. Vitals: BP 131/92 (BP Location: Left arm, Patient Position: Sitting) Pulse 87 Temp 36.3 C (97.4F) (Temporal) Resp 18 Ht 5' 6 (1.676 m) Wt (!) 305 lb (138 kg) LMP 10/28/2023 (Exact Date) SpO2 96% BMI 49.23 kg/m Pulse Ox: SpO2 Av % Min: 96 % Max: 96 % Supplemental O2: Physical Exam Constitutional: General: She is not in acute distress. Appearance: She is obese. She is not toxic-appearing. HENT: Head: Normocephalic. Right Ear: External ear normal. Left Ear: External ear normal. Eyes: Extraocular Movements: Extraocular movements intact. Cardiovascular: Rate and Rhythm: Normal rate and regular rhythm. Pulmonary: Effort: Pulmonary effort is normal. No respiratory distress. Abdominal: General: Bowel sounds are normal. Palpations: Abdomen is soft. Tenderness: There is no abdominal tenderness. Musculoskeletal: General: Normal range of motion. Skin: General: Skin is warm and dry. Neurological: Mental Status: She is alert and oriented to person, place, and time. Psychiatric: Thought Content: Thought content normal. LABS: Recent Labs 10/31/23 0500 11/01/23 0553 11/02/23 0732 NA 133* 132* 134* K 3.7 3.4* 3.9 CL 100 100 100 CO2 26 26 29 BUN 2* 3* 3* CREATININE 0.54 0.47* 0.54 GLUCOSE 76 76 84 CALCIUM 8.4 7.8* 8.1* Recent Labs 10/31/23 0500 11/01/23 0553 11/02/23 0732 WBC 7.5 8.7 8.0 RBC 4.78 4.40 4.81 HGB 10.8* 9.8* 10.7* HCT 33.8* 30.2* 33.2* MCV 70.7* 68.6* 69.0* MCH 22.6* 22.3* 22.2* MCHC 32.0 32.5 32.2 RDW 18.9* 18.6* 19.6* PLT 185 191 197 MPV -- 10.8 10.7 Discharge Medications: Medication List CONTINUE taking these medications calcium citrate 250 MG tablet Take 2 tablets (500 mg) by mouth 3 times daily. Take 2 tablets by mouth three times daily. CareTouch 2 CPAP Hose Dominatrix misc ferrous sulfate 325 (65 Fe) MG tablet Take 1 tablet (325 mg) by mouth 2 times daily. flecainide 50 MG tablet Commonly known as: Tambocor Take 3 tablets (150 mg) by mouth Once as needed (Take 3 pills as needed for episodes of atrial fibrillation). magnesium 30 MG tablet metoprolol tartrate 25 MG tablet Commonly known as: Lopressor Take 1 tablet (25 mg) by mouth 2 times daily. omeprazole [address] capsule Commonly known as: PriLOSEC Take 1 capsule (20 mg) by mouth daily. Do not crush or chew. Mikie 13.5 MG IUD Generic drug: levonorgestrel thiamine 50 MG tablet Commonly known as: Vitamin B-1 Take 1 tablet (50 mg) by mouth daily. Take 1 tablet by mouth daily. Vitamin B-12 500 MCG sublingual tablet VITAMIN D (CHOLECALCIFEROL) PO Recommended Follow-up: [address] [place] [id number] Complexity of Follow up: [] Moderate Complexity: follow up within 7-14 calendar days (43348) [x] Severe Complexity: follow up within 7 calendar days (67392) Follow up Testing, Pending results or Referrals at Transitional Care Visit: [x] yes [] no Instructions to MA: Please call patient on day after discharge (must document patient contacted within 2 business days of discharge). Follow up questions for MA: 1. Did you get medications filled and taking them as instructed from discharge? 2. Are you following your discharge instructions from your hospital stay? 3. Please confirm patient is scheduled for a follow up appointment within the above time frame. Signed: Brandy Ray MD [facility] In[facility] Medical Services/[facility] 11/02/2023, 5:10 PM documented in this [facility]09-10-2024 [facility] 11-02-2023 Note* Care Coordination - Kristine Chavira - 11/02/2023 3:47 PM EDT IRMA completed UC Readmission Questionnaire with patient. . [facility] [id number] Note* Care Coordination - Kristine Chavira - 11/02/2023 3:47 PM EDT IRMA completed [facility] Readmission Questionnaire with patient. . [place] [id number] Miscellaneous Notes* Care Coordination - Kristine Chavira - 11/02/2023 3:47 PM EDT SW completed [facility] Readmission Questionnaire with patient. . * Care Coordination - Nancy Vega RN - 11/02/2023 1:18 PM EDT SPOKE WITH PT THIS MORNING, HOPING TO GO HOME TODAY. GI HAS SIGNED OFF, PT TO FOLLOW UP OUTPT WITH THEM. SPOKE WITH DR RAY, PLANS TO CONSULT ID TODAY. ANTICIPATE DISCHARGE TO HOME WITH NO NEEDS. * Care Coordination - LUCIA Cruz CNP - 11/02/2023 10:50 AM EDT Department of Internal Medicine Gastroenterology Liver doppler WNL. Primary team notified recommended ID evaluation for positive CMV IGG and IGM andEBV IGM. Transaminitis likely infectious. Follow up with Dr. Malone as recommended. LUCIA Rehman CNP 11/02/2023 * Care Plan - Indigo Castano RN - 11/01/2023 6:41 PM EDT The patient is Moderately Stable - Low risk of patient condition declining or worsening The patient's goals for the shift include to get some rest The clinical goals for the shift include maintain nausea control Over the shift, the patient did not make progress toward the following goals. Barriers to progression include none. Recommendations to address these barriers include none. * Care Plan - Aissatou Parson RN - 11/01/2023 6:35 PM EDT The patient is Moderately Stable - Low risk of patient condition declining or worsening The patient's goals for the shift include to get some rest The clinical goals for the shift include maintain nausea control Over the shift, the patient did not make progress toward the following goals. Barriers to progression include none. Recommendations to address these barriers include none. * Care Coordination - Nancy Vega RN - 11/01/2023 1:36 PM EDT Images from the original note were not included. Care Management Progress Note LABS SLOWLY TRENDING DOWN. ON IV FLUIDS. GI WAITING FOR FURTHER TEST RESULTS. GEN SURG ALSO FOLLOWING. ANTICIPATE DISCHARGE TO HOME, WILL CONTINUE TO FOLLOW. Discharge Milestones and Delays Expected date/time: 10/31/[address] discharge order Complete med reconciliation Case mgmt discharge readiness Clinical Stability Diagnostic Workup Facility Choice Selection Patient Education Complete Expected Discharge History Expected Date/Time Set By Reviewed At 10/31/2023 Johana Ratliff PA-C 10/28/2023 7:09 PM 10/31/2023 Johana Ratliff PA-C 10/28/2023 11:55 AM Length of Stay (Days): 4 GMLOS: No GMLOS Documented * Care Plan - Lindsay Emerson RN - 11/01/2023 6:51 AM EDT Problem: Knowledge Deficit Goal: Patient/family/caregiver demonstrates understanding of disease process, treatment plan, medications, and discharge instructions Outcome: Progressing Problem: Potential for Compromised Skin Integrity Goal: Skin Integrity is Maintained or Improved Outcome: Progressing Goal: Nutritional status is improving Outcome: Progressing Problem: Urinary Incontinence Goal: Perineal skin integrity is maintained or improved Outcome: Progressing * Care Plan - Lindsay Emerson RN - 10/31/2023 6:38 AM EDT Problem: Knowledge Deficit Goal: Patient/family/caregiver demonstrates understanding of disease process, treatment plan, medications, and discharge instructions Outcome: Progressing Problem: Potential for Compromised Skin Integrity Goal: Skin Integrity is Maintained or Improved Outcome: Progressing Goal: Nutritional status is improving Outcome: Progressing Problem: Urinary Incontinence Goal: Perineal skin integrity is maintained or improved Outcome: Progressing The patient is Moderately Stable - Low risk of patient condition declining or worsening The patient's goals for the shift include to get some rest The clinical goals for the shift include maintain nausea control * Care Coordination - Carmen Purdy MD - 10/30/2023 8:29 AM EDT MRCP reviewed, CBD looks normal. Will await the official read. * Care Coordination - Nancy Vega RN - 10/29/2023 12:34 PM EDT Care Managment Initial Assessment Date: 10/29/2023 Patient Name: Anne Marie Peterson : 1995 Patient Information Source of Information: Patient Cognition/Language: WFL - Within Functional Limits Permission given to speak with patient customer care representative/caregiver as indicated: No Confirmation of Payer with patient/family: Yes Payer Name: [facility] : No Confirmation of Primary Care Physician: Confirmed PCP Name: DR LANE Seen in last 2 years?: Yes Primary Caregiver: Self If assistance needed, confirmed caregiver ready, willing and able to care for patient at discharge:Yes Confirmed with: Living Arrangements Current Residence: House Number of Floors 2 Number of Entry Steps: 1 Bed/Bath Levels: Facility: Facility Name: Plan to Return: Lives with: Children Support Systems: Spouse/significant other, Parent Activities of Daily Living Ambulation: Independent Bathing/Dressing: Independent Elimination/Continence/Toileting: Independent Feeding: Independent Who Assists with Activities of Daily Living: Instrumental Activities of Daily Living Prescription Coverage: Yes Pharmacy Used: Medication Management: Independent Transportation/Shopping: Independent Transportation Mode: Car Needs Assistance with Transportation at Discharge: No Meal Preparation: Independent Laundry/Cleaning: Independent Finances/Bill Paying: Independent Communication: Independent Types of Care Services/Equipment Utilized Care Services: (NA) Dialysis Type: NA Durable Medical Equipment: Cane Patient's Goal/Discharge Plan Patient expects to be discharged to: HOME Discharge Planning Actions: Continue to follow Patient's Choice Rights and [employer] and Collaborative Relationships Disclosed as Indicated for Post-Acute Care: Interdisciplinary Team Engagement: Social Work Referral for: Additional Information: SPOKE WITH PT, INTRODUCED SELF AND EXPLAINED ROLE. PT HERE WITH TRANSAMINITIS, HX RECENT GASTRIC BYPASS. CURRENTLY ON IV FLUIDS, NPO. MRI PENDING. GEN SURG AND GI FOLLOWING. ANTICIPATE DISCHARGE TO HOME, WILL CONTINUE TO FOLLOW. Nancy Vega RN * Care Plan - Oscar Estrada RN - 10/28/2023 9:52 PM EDT Problem: Knowledge Deficit Goal: Patient/family/caregiver demonstrates understanding of disease process, treatment plan, medications, and discharge instructions Outcome: Progressing Problem: Potential for Compromised Skin Integrity Goal: Skin Integrity is Maintained or Improved Outcome: Progressing The patient is Moderately Stable - Low risk of patient condition declining or worsening The patient's goals for the shift include to get some rest The clinical goals for the shift include maintain nausea control documented in this [facility]09-10-2024 Note* Care Coordination - Nancy Vega RN - 11/02/2023 1:18 PM EDT SPOKE WITH PT THIS MORNING, HOPING TO GO HOME TODAY. GI HAS SIGNED OFF, PT TO FOLLOW UP OUTPT WITH THEM. SPOKE WITH DR RAY, PLANS TO CONSULT ID TODAY. ANTICIPATE DISCHARGE TO HOME WITH NO NEEDS. [facility] [id number] Note* Care Coordination - Nancy Vega RN - 11/02/2023 1:18 PM EDT SPOKE WITH PT THIS MORNING, HOPING TO GO HOME TODAY. GI HAS SIGNED OFF, PT TO FOLLOW UP OUTPT WITH THEM. SPOKE WITH DR RAY, PLANS TO CONSULT ID TODAY. ANTICIPATE DISCHARGE TO HOME WITH NO NEEDS. [facility] [id number] Consult note* Lydia Strickland, HAND SPINNER - PLANT ECOLOGIST - 11/02/2023 12:15 PM EDTAssociated Order(s): IP CONSULT TO INFECTIOUS DISEASES Images from the original note were not included. [facility] - Infectious Diseases PLANT ECOLOGIST Consult Note Reason for Consult: + EBV, + CMV History of Present Illness: This is a 28F who presented to the ED on 10/27 with c/o nausea, vomiting, abdominal pain, and dehydration. She initially presented to [facility] on 10/25 but left AMA dt childcare needs. She recently underwent lap gastric bypass 04/2023 with liver biopsy intra op dt enlarged appearence of liver. Liver biopsy resulted with severe hepatic steatosis. Her post operative course was c/b pancreatitis. 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 She denies recent travel or sick contacts. She has small children at home in daycare but in good health and without similar illness. Seen by her PCP -> Covid/ Flu negative. At [facility] ED she was afebrile, hypertensive. Initial blood work significant for WBC 9.0 with lymphocytosis/bandemia, AST 432, ALT 274, total bili 3.2, Alk Phos 595, Lipase 57, LA 1.0. Blood cultures collected -> ngtd. CXR without acute process. She was admitted for further work up, left AMA on 10/26. Re-admitted on 10/27 with rise on LFTs including bilirubin. Acute hepatitis panel negative. She underwentMRI Abd on 10/30 which illustrated diffuse hepatic steatosis, hepatosplenomegaly -> progressed, mild acute edematous pancreatitis, periportal edema, and periportal and gastrohepatic ligament lymphadenopathy. Evaluated by general surgery -> no surgical intervention. GI service consulted, auto immune and infectious work up ordered including CMV/ EBV. CMV IgM and IGG positive, EBV IgM positive (2.3). ID consulted for further recommendations. 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 Memo Duke / Ernst Chavez [facility] - inguinal hernia LAP GASTRIC BYPASS/SANDRA-EN-Y (HISTORICAL) 05/10/2023 LRYGB - Dr. Campbell LAP,CHOLECYSTECTOMY (HISTORICAL) 2009 Dr. Memo Duke / [facility] UPPER GASTROINTESTINAL ENDOSCOPY Current Medications: Current Facility-Administered Medications Medication Dose Route Frequency Provider Last Rate Last Admin acetaminophen (Tylenol) tablet 650 mg 650 mg Oral q6h PRN Manuel Villarreal MD 650 mg at 10/30/232058 Or acetaminophen (Tylenol) suppository 650 mg 650 mg Rectal q6h PRN Manuel Villarreal MD cyanocobalamin (Vitamin B-12) injection 1,000 mcg 1,000 mcg IntraMUSCular q30 days Julio Real MD 1,000 mcg at 10/29/23 1410 ibuprofen tablet 600 mg 600 mg Oral Once Micky Salazar DO lactated Ringer's infusion 75 mL/hr IntraVENous Continuous Manuel Villarreal MD 75 mL/hr at 11/01/23 0628 75 mL/hr at 11/01/23 0628 metoprolol tartrate (Lopressor) tablet 25 mg 25 mg Oral BID Manuel Villarreal MD 25 mg at 11/02/23 0814 ondansetron ODT (Zofran-ODT) disintegrating tablet 4 mg 4 mg Oral q8h PRN Manuel Villarreal MD Or ondansetron (Zofran) injection 4 mg 4 mg IntraVENous q6h PRN Manuel Villarreal MD polyethylene glycol (PEG) 3350 (Miralax) packet 17 g 17 g Oral Daily Ravi Snell MD 17 g at 11/02/23 0814 Allergies: Allergies Allergen Reactions Nsaids S/P BARIATRIC SURGERY Social History: Social History Socioeconomic History Marital status: Significant Other Spouse name: Not on file Number of children: Not on file Years of education: Not on file Highest education level: Not on file Occupational History Not on file Tobacco Use Smoking status: Never Smokeless tobacco: Never Vaping Use Vaping status: Never Used Substance and Sexual Activity Alcohol use: Not Currently Drug use: Never Sexual activity: Yes Partners: Male control/protection: I.U.D. Other Topics Concern Not on file Social History Narrative Not on file Social Determinants of Health Financial Resource Strain: Low Risk (10/28/2023) Overall Financial Resource Strain (CARDIA) Difficulty of Paying Living Expenses: Not hard at all Food Insecurity: No Food Insecurity (10/28/2023) Hunger Vital Sign Worried About Running Out of Food in the Last Year: Never true Ran Out of Food in the Last Year: Never true Transportation Needs: No Transportation Needs (10/28/2023) PRAPARE - Transportation Lack of Transportation (Medical): No Lack of Transportation (Non-Medical): No Physical Activity: Sufficiently Active (10/28/2023) Exercise Vital Sign Days of Exercise per Week: 3 days Minutes of Exercise per Session: 60 min Stress: No Stress Concern Present (10/28/2023) [employer] - Occupational Stress Questionnaire Feeling of Stress : Not at all Social Connections: Socially Integrated (10/28/2023) Social Connection and Isolation Panel [NHANES] Frequency of Communication with Friends and Family: More than three times a week Frequency of Social Gatherings with Friends and Family: Once a week Attends Mormonism Services: More than 4 times per year Active Member of Clubs or Organizations: Yes Attends Club or Organization Meetings: More than 4 times per year Marital Status: Living with partner Intimate Partner Violence: Not At Risk (10/28/2023) Humiliation, Afraid, Rape, and Kick questionnaire Fear of Current or Ex-Partner: No Emotionally Abused: No Physically Abused: No Sexually Abused: No Housing Stability: Low Risk (10/28/2023) Housing Stability Vital Sign Unable to Pay for Housing in the Last Year: No Number of Times Moved in the Last Year: 1 Homeless in the Last Year: No Family History: Family History Problem Relation Name Age of Onset Cancer Mother Hypertension Mother Obesity Mother Heart disease Father Obesity Father Cancer Maternal Grandmother Heart disease Maternal Grandmother Stroke Maternal Grandfather Hypertension Maternal Grandfather Heart disease Maternal Grandfather Diabetes Maternal Grandfather Obesity Maternal Grandfather Anesthesia problems Maternal Grandfather Review of Systems: Review of Systems Constitutional: Positive for fatigue. Negative for chills and fever. HENT: Negative. Negative for dental problem, ear pain, facial swelling, mouth sores, sinus pain, sore throat, trouble swallowing and voice change. Eyes: Negative. Negative for photophobia, discharge and visual disturbance. Respiratory: Negative. Negative for cough and shortness of breath. Cardiovascular: Negative for chest pain. Gastrointestinal: Negative. Negative for diarrhea, nausea and vomiting. Endocrine: Negative. Genitourinary: Negative. Negative for dysuria, flank pain, hematuria and urgency. Musculoskeletal: Negative. Negative for back pain, joint swelling and myalgias. Skin: Negative. Negative for rash and wound. Allergic/Immunologic: Negative. Neurological: Negative. Negative for weakness. Hematological: Negative. Psychiatric/Behavioral: Negative. Decreased concentration: .mtq.mta. Vitals: Patient Vitals for the past 24 hrs: BP Temp Temp src Pulse Resp SpO2 11/02/23 0653 131/92 36.3 C (97.4 F) Temporal 87 -- 96 % 11/01/23 1756 135/96 37 C (98.6 F) Temporal 102 18 96 % Physical Exam: Physical Exam Vitals and nursing note reviewed. Constitutional: General: She is awake. She is not in acute distress. Appearance: Normal appearance. She is obese. She is not ill-appearing or toxic-appearing. Comments: Sitting up in bed, awake and alert, NAD. HENT: Head: Normocephalic and atraumatic. Right Ear: External ear normal. Left Ear: External ear normal. Nose: Nose normal. Mouth/Throat: Mouth: Mucous membranes are moist. Dentition: Normal dentition. Pharynx: Oropharynx is clear. Eyes: General: Scleral icterus (faint) present. Conjunctiva/sclera: Conjunctivae normal. Pupils: Pupils are equal, round, and reactive to light. Cardiovascular: Rate and Rhythm: Normal rate and regular rhythm. Heart sounds: Normal heart sounds. Pulmonary: Effort: Pulmonary effort is normal. No respiratory distress. Breath sounds: Normal breath sounds. Abdominal: General: Bowel sounds are normal. There is no distension. Palpations: Abdomen is soft. There is no mass. Tenderness: There is no abdominal tenderness. There is no right CVA tenderness or left CVA tenderness. Musculoskeletal: General: No swelling or tenderness. Normal range of motion. Cervical back: Normal range of motion and neck supple. Skin: General: Skin is warm and dry. Findings: No rash. Neurological: General: No focal deficit present. Mental Status: She is alert and oriented to person, place, and time. Psychiatric: Mood and Affect: Mood normal. Behavior: Behavior normal. Behavior is cooperative. Labs: Recent Labs 10/31/23 05011/01/23 0553 11/02/23 0732 NA 133* 132* 134* K 3.7 3.4* 3.9 CL 100 100 100 CO2 26 26 29 BUN 2* 3* 3* CREATININE 0.54 0.47* 0.54 GLUCOSE 76 76 84 CALCIUM 8.4 7.8* 8.1* PROT 6.6 6.2* 6.6 BILITOT 5.2* 5.0* 5.0* ALKPHOS 646* 557* 609* AST 449* 361* 347* ALT 233* 193* 195* Recent Labs 10/31/23 05011/01/23 0553 11/02/23 0732 WBC 7.5 8.7 8.0 HGB 10.8* 9.8* 10.7* HCT 33.8* 30.2* 33.2* PLT 185 191 197 LYMPHOPCT 52* 68* 66* MONOPCT 12 5 6 10/26 HCG negative Micro: No results for input(s): COVID19 in the last 72 hours. 10/29 Hep B core Ab- negative IgM 222.4 IGG blood - 2,182.1 IGG subclass 1 -1387 IGG subclass 2- 281 IGG subclass 3- >219 IGG subclass 4- 73 10/26 mono spot 0 negative 10/26 urine culture- normal gu denise 10/26 blood cx- ngtd 10/25 bood cx- ngtd 10/25 acute hepatitis panel- not detected Lines: PIV Radiography/Echo/Other: 10/31 US Liver- FINDINGS: 1. Patent portal venous system/splenic vein with normal flow direction without definite thrombus onthis limited exam 2. Patent hepatic artery 3. Patent hepatic veins with normal flow direction/patent IVC without definite thrombus on this limited exam 10/30 MRI Abd- Impression: Marked diffuse hepatic steatosis. Hepatosplenomegaly, progressed since prior. Subtle edema within and adjacent to the head and uncinate process of the pancreas, suspicious for mild acute edematous pancreatitis. Correlate with laboratory values. New moderate periportal edema. Periportal and gastrohepatic ligament lymphadenopathy, progressed since prior. Antimicrobials,Start/End Dates: none Impression: EBV IgM positive - likely to represent recent vs acute infection CMV IgM/ IgG positive - likely to represent recent or past infection Acute transaminitis / hyperbilirubinemia - s/p liver bx 05/09 -> hepatic steatosis 4. S/p Laparoscopic Sandra-en-Y gastric bypass 05/10/23 5. PCM 6. Morbid Obesity Plan: EBV infection self limiting CMV IgM/ IGG positivity likely to represent recent/past infection - does not meet criteria for treatment - Symptomatology improved, LFTs down trending HIV screen ordered, will follow No opposition to discharge from ID standpoint Case staffed with Dr Addison ID will sign off. Please call with questions or concerns. Opportunity given for questions and all questions answered to the patient's satisfaction. Patient is in agreement with plan. At least total time of 55 minutes on this day of encounter spent on, but not limited to review of tests, medical records , complex history , review of external medical records, paper and electronic, counseling and education (patient, family member, caregiver), and ordering medications, tests, and pr ocedures. Lydia Strickland APRN, CNP [facility] Infectious Disease 12:16 PM 11/02/2023 [facility] Phone: [phone] Consult note* Lydia Strickland APRN - [place] - 11/02/2023 12:15 PM EDTAssociated Order(s): IP CONSULT TO INFECTIOUS DISEASES Images from the original note were not included. [facility] - Infectious Diseases PLANT ECOLOGIST Consult Note Reason for Consult: + EBV, + CMV History of Present Illness: This is a 28F who presented to the ED on 10/27 with c/o nausea, vomiting, abdominal pain, and dehydration. She initially presented to [facility] on 10/25 but left AMA dt childcare needs. She recently underwent lap gastric bypass 04/2023 with liver biopsy intra op dt enlarged appearence of liver. Liver biopsy resulted with severe hepatic steatosis. Her post operative course was c/b pancreatitis. 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 She denies recent travel or sick contacts. She has small children at home in daycare but in good health and without similar illness. Seen by her PCP -> Covid/ Flu negative. At [facility] ED she was afebrile, hypertensive. Initial blood work significant for WBC 9.0 with lymphocytosis/bandemia, AST 432, ALT 274, total bili 3.2, Alk Phos 595, Lipase 57, LA 1.0. Blood cultures collected -> ngtd. CXR without acute process. She was admitted for further work up, left AMA on 10/26. Re-admitted on 10/27 with rise on LFTs including bilirubin. Acute hepatitis panel negative. She underwentMRI Abd on 10/30 which illustrated diffuse hepatic steatosis, hepatosplenomegaly -> progressed, mild acute edematous pancreatitis, periportal edema, and periportal and gastrohepatic ligament lymphadenopathy. Evaluated by general surgery -> no surgical intervention. GI service consulted, auto immune and infectious work up ordered including CMV/ EBV. CMV IgM and IGG positive, EBV IgM positive (2.3). ID consulted for further recommendations. 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 Memo [facility] / [facility] - inguinal hernia LAP GASTRIC BYPASS/SANDRA-EN-Y (HISTORICAL) 05/10/2023 [facility] - Dr. Campbell LAP,CHOLECYSTECTOMY (HISTORICAL) 2009 Dr. Memo [facility] / [facility] UPPER GASTROINTESTINAL ENDOSCOPY Current Medications: Current Facility-Administered Medications Medication Dose Route Frequency Provider Last Rate Last Admin acetaminophen (Tylenol) tablet 650 mg 650 mg Oral q6h PRN Manuel Villarreal MD 650 mg at 10/30/232058 Or acetaminophen (Tylenol) suppository 650 mg 650 mg Rectal q6h PRN Manuel Villarreal MD cyanocobalamin (Vitamin B-12) injection 1,000 mcg 1,000 mcg IntraMUSCular q30 days Julio Real MD 1,000 mcg at 10/29/23 1410 ibuprofen tablet 600 mg 600 mg Oral Once Micky Salazar DO lactated Ringer's infusion 75 mL/hr IntraVENous Continuous Manuel Villarreal MD 75 mL/hr at 11/01/23 0628 75 mL/hr at 11/01/23 0628 metoprolol tartrate (Lopressor) tablet 25 mg 25 mg Oral BID Manuel Villarreal MD 25 mg at 11/02/23 0814 ondansetron ODT (Zofran-ODT) disintegrating tablet 4 mg 4 mg Oral q8h PRN Manuel Villarreal MD Or ondansetron (Zofran) injection 4 mg 4 mg IntraVENous q6h PRN Manuel Villarreal MD polyethylene glycol (PEG) 3350 (Miralax) packet 17 g 17 g Oral Daily Ravi Snell MD 17 g at 11/02/23 0814 Allergies: Allergies Allergen Reactions Nsaids S/P BARIATRIC SURGERY Social History: Social History Socioeconomic History Marital status: Significant Other Spouse name: Not on file Number of children: Not on file Years of education: Not on file Highest education level: Not on file Occupational History Not on file Tobacco Use Smoking status: Never Smokeless tobacco: Never Vaping Use Vaping status: Never Used Substance and Sexual Activity Alcohol use: Not Currently Drug use: Never Sexual activity: Yes Partners: Male control/protection: I.U.D. Other Topics Concern Not on file Social History Narrative Not on file Social Determinants of Health Financial Resource Strain: Low Risk (10/28/2023) Overall Financial Resource Strain (CARDIA) Difficulty of Paying Living Expenses: Not hard at all Food Insecurity: No Food Insecurity (10/28/2023) Hunger Vital Sign Worried About Running Out of Food in the Last Year: Never true Ran Out of Food in the Last Year: Never true Transportation Needs: No Transportation Needs (10/28/2023) PRAPARE - Transportation Lack of Transportation (Medical): No Lack of Transportation (Non-Medical): No Physical Activity: Sufficiently Active (10/28/2023) Exercise Vital Sign Days of Exercise per Week: 3 days Minutes of Exercise per Session: 60 min Stress: No Stress Concern Present (10/28/2023) [employer] - Occupational Stress Questionnaire Feeling of Stress : Not at all Social Connections: Socially Integrated (10/28/2023) Social Connection and Isolation Panel [NHANES] Frequency of Communication with Friends and Family: More than three times a week Frequency of Social Gatherings with Friends and Family: Once a week Attends Mormonism Services: More than 4 times per year Active Member of Clubs or Organizations: Yes Attends Club or Organization Meetings: More than 4 times per year Marital Status: Living with partner Intimate Partner Violence: Not At Risk (10/28/2023) Humiliation, Afraid, Rape, and Kick questionnaire Fear of Current or Ex-Partner: No Emotionally Abused: No Physically Abused: No Sexually Abused: No Housing Stability: Low Risk (10/28/2023) Housing Stability Vital Sign Unable to Pay for Housing in the Last Year: No Number of Times Moved in the Last Year: 1 Homeless in the Last Year: No Family History: Family History Problem Relation Name Age of Onset Cancer Mother Hypertension Mother Obesity Mother Heart disease Father Obesity Father Cancer Maternal Grandmother Heart disease Maternal Grandmother Stroke Maternal Grandfather Hypertension Maternal Grandfather Heart disease Maternal Grandfather Diabetes Maternal Grandfather Obesity Maternal Grandfather Anesthesia problems Maternal Grandfather Review of Systems: Review of Systems Constitutional: Positive for fatigue. Negative for chills and fever. HENT: Negative. Negative for dental problem, ear pain, facial swelling, mouth sores, sinus pain, sore throat, trouble swallowing and voice change. Eyes: Negative. Negative for photophobia, discharge and visual disturbance. Respiratory: Negative. Negative for cough and shortness of breath. Cardiovascular: Negative for chest pain. Gastrointestinal: Negative. Negative for diarrhea, nausea and vomiting. Endocrine: Negative. Genitourinary: Negative. Negative for dysuria, flank pain, hematuria and urgency. Musculoskeletal: Negative. Negative for back pain, joint swelling and myalgias. Skin: Negative. Negative for rash and wound. Allergic/Immunologic: Negative. Neurological: Negative. Negative for weakness. Hematological: Negative. Psychiatric/Behavioral: Negative. Decreased concentration: .mtq.mta. Vitals: Patient Vitals for the past 24 hrs: BP Temp Temp src Pulse Resp SpO2 11/02/23 0653 131/92 36.3 C (97.4 F) Temporal 87 -- 96 % 11/01/23 1756 135/96 37 C (98.6 F) Temporal 102 18 96 % Physical Exam: Physical Exam Vitals and nursing note reviewed. Constitutional: General: She is awake. She is not in acute distress. Appearance: Normal appearance. She is obese. She is not ill-appearing or toxic-appearing. Comments: Sitting up in bed, awake and alert, NAD. HENT: Head: Normocephalic and atraumatic. Right Ear: External ear normal. Left Ear: External ear normal. Nose: Nose normal. Mouth/Throat: Mouth: Mucous membranes are moist. Dentition: Normal dentition. Pharynx: Oropharynx is clear. Eyes: General: Scleral icterus (faint) present. Conjunctiva/sclera: Conjunctivae normal. Pupils: Pupils are equal, round, and reactive to light. Cardiovascular: Rate and Rhythm: Normal rate and regular rhythm. Heart sounds: Normal heart sounds. Pulmonary: Effort: Pulmonary effort is normal. No respiratory distress. Breath sounds: Normal breath sounds. Abdominal: General: Bowel sounds are normal. There is no distension. Palpations: Abdomen is soft. There is no mass. Tenderness: There is no abdominal tenderness. There is no right CVA tenderness or left CVA tenderness. Musculoskeletal: General: No swelling or tenderness. Normal range of motion. Cervical back: Normal range of motion and neck supple. Skin: General: Skin is warm and dry. Findings: No rash. Neurological: General: No focal deficit present. Mental Status: She is alert and oriented to person, place, and time. Psychiatric: Mood and Affect: Mood normal. Behavior: Behavior normal. Behavior is cooperative. Labs: Recent Labs 10/31/23 0500 11/01/23 0553 11/02/23 0732 NA 133* 132* 134* K 3.7 3.4* 3.9 CL 100 100 100 CO2 26 26 29 BUN 2* 3* 3* CREATININE 0.54 0.47* 0.54 GLUCOSE 76 76 84 CALCIUM 8.4 7.8* 8.1* PROT 6.6 6.2* 6.6 BILITOT 5.2* 5.0* 5.0* ALKPHOS 646* 557* 609* AST 449* 361* 347* ALT 233* 193* 195* Recent Labs 10/31/23 0500 11/01/23 0553 11/02/23 0732 WBC 7.5 8.7 8.0 HGB 10.8* 9.8* 10.7* HCT 33.8* 30.2* 33.2* PLT 185 191 197 LYMPHOPCT 52* 68* 66* MONOPCT 12 5 6 10/26 HCG negative Micro: No results for input(s): COVID19 in the last 72 hours. 10/29 Hep B core Ab- negative IgM 222.4 IGG blood - 2,182.1 IGG subclass 1 -1387 IGG subclass 2- 281 IGG subclass 3- >219 IGG subclass 4- 73 10/26 mono spot 0 negative 10/26 urine culture- normal gu denise 10/26 blood cx- ngtd 10/25 bood cx- ngtd 10/25 acute hepatitis panel- not detected Lines: PIV Radiography/Echo/Other: 10/31 US Liver- FINDINGS: 1. Patent portal venous system/splenic vein with normal flow direction without definite thrombus onthis limited exam 2. Patent hepatic artery 3. Patent hepatic veins with normal flow direction/patent IVC without definite thrombus on this limited exam 10/30 MRI Abd- Impression: Marked diffuse hepatic steatosis. Hepatosplenomegaly, progressed since prior. Subtle edema within and adjacent to the head and uncinate process of the pancreas, suspicious for mild acute edematous pancreatitis. Correlate with laboratory values. New moderate periportal edema. Periportal and gastrohepatic ligament lymphadenopathy, progressed since prior. Antimicrobials,Start/End Dates: none Impression: EBV IgM positive - likely to represent recent vs acute infection CMV IgM/ IgG positive - likely to represent recent or past infection Acute transaminitis / hyperbilirubinemia - s/p liver bx 05/09 -> hepatic steatosis 4. S/p Laparoscopic Sandra-en-Y gastric bypass 05/10/23 5. PCM 6. Morbid Obesity Plan: EBV infection self limiting CMV IgM/ IGG positivity likely to represent recent/past infection - does not meet criteria for treatment - Symptomatology improved, LFTs down trending HIV screen ordered, will follow No opposition to discharge from ID standpoint Case staffed with Dr Addison ID will sign off. Please call with questions or concerns. Opportunity given for questions and all questions answered to the patient's satisfaction. Patient is in agreement with plan. At least total time of 55 minutes on this day of encounter spent on, but not limited to review of tests, medical records , complex history , review of external medical records, paper and electronic, counseling and education (patient, family member, caregiver), and ordering medications, tests, and pr ocedures. Lydia Strickland APRN, PLANT ECOLOGIST [facility] Infectious Disease 12:16 PM 11/02/2023 * Lencho Mathews MD - 10/29/2023 8:19 AM EDTAssociated Order(s): IP CONSULT TO PROCEDURE TEAM Images from the original note were not included. Department of Internal Medicine Gastroenterology Attending Consult Note Reason for Consult: The patient was seen in consultation at the request of Dr. Manuel Villarreal re: elevated LFT and possible MRCP/ERCP. CHIEF COMPLAINT: nausea, anorexia, malaise History Obtained From: patient and EMR HISTORY OF PRESENT ILLNESS: The patient is a 28 y.o. female with significant past medical history of anemia, atrial fibrillation, Listerman expressive disorder, sleep apnea, and s/p cholecystectomy (15 yrs ago), s/p Sandra-en-Y gastric bypass (April 2023) for morbid obesity who presents with nausea, malaise, and loss of appetite. The patient recounted the story in room. Since 10/19, patient has experienced intermittent fevers associated with poor appetite and subjective jaundice (feels she is a bit yellow) but denies feelingsick symptoms. Her last fever was 2 days ago. Patient took 500 mg Tylenol q4h when experiencing breakouts. She went to [facility] ED on 10/25 for nausea and general malaise. Managed as a possible case of acute pancreatitis, advised MRCP and IgG4 testing but after 24 hours, patient had to leave AMA dueto family matters. At home, she continued to feel nauseous, and was instructed to return to the ED by an on-call nurse via telephone due to elevated liver enzymes. Currently, patient is resting comfortably and is hemodynamically stable. She is not experiencing any fever or nausea at the moment. Patient has a poor appetite and has not eaten anything since last Wednesday (10/19). Patient said she noticed slight jaundice last week, but has not noticed any skin discoloration since. She has not had a bowel movement in over a week. Patient says that she feels similar to a previous episode of acute pancreatitis after bypass surgery. Labs are ALP 597, Albumin 2.8, AST 377, ALT 229, Bilirubin 3.6. Hb 11.0/Hematocrit 34.0 Hep B/C panels negative, Acetaminophen <10, [place] test negative. Lipase normal (135). She reports of no intake of drug supplements use or dietary risk factors (e.g. mushroom ingestion) as cause of hepatotoxicity. Allergies: Nsaids Current Medications: Current Facility-Administered Medications: acetaminophen (Tylenol) tablet 650 mg, 650 mg, Oral, q6h PRN OR acetaminophen (Tylenol) suppository 650 mg, 650 mg, Rectal, q6h PRN, Manuel Villarreal MD lactated Ringer's infusion, 75 mL/hr, IntraVENous, Continuous, Manuel Villarreal MD, Last Rate: 75 mL/hr at 10/28/23 1735, 75 mL/hr at 10/28/23 1735 metoprolol tartrate (Lopressor) tablet 25 mg, 25 mg, Oral, BID, Manuel Villarreal MD, 25 mg at 10/29/23 0745 ondansetron ODT (Zofran-ODT) disintegrating tablet 4 mg, 4 mg, Oral, q8h PRN OR ondansetron (Zofran) injection 4 mg, 4 mg, IntraVENous, q6h PRN, Manuel Villarreal MD polyethylene glycol (PEG) 3350 (Miralax) packet 17 g, 17 g, Oral, Daily PRN, Manuel Villarreal MD Past Medical History: Active Ambulatory Problems Diagnosis Date Noted Prediabetes 09/10/2022 Daytime sleepiness 09/10/2022 Back pain 09/10/2022 Atrial fibrillation with RVR (HCC) 01/08/2023 Mixed hyperlipidemia 01/08/2023 MOE on CPAP 01/08/2023 Chronic superficial gastritis without bleeding 01/10/2023 Hypertension 04/08/2023 Morbid obesity with BMI of 60.0-69.9, adult (HCC) 04/08/2023 Hepatic steatosis 04/08/2023 History of motion sickness 05/03/2023 Difficult intravenous access 05/03/2023 Dizziness 05/19/2023 Painless pancreatitis 06/03/2023 Acute pancreatitis, unspecified complication status, unspecified pancreatitis type 06/06/2023 Severe malnutrition (CMS/HCC) (HCC) 06/07/2023 Hypokalemia 06/09/2023 History of gastric bypass 06/09/2023 Deficiency of multiple nutrient elements 06/17/2023 Intestinal malabsorption 06/17/2023 Transaminitis 10/27/2023 Resolved Ambulatory Problems Diagnosis Date Noted No Resolved Ambulatory Problems Past Medical History: Diagnosis Date Anemia Atrial fibrillation (HCC) COVID-19 vaccine series completed 10/2020 SANTOS (dyspnea on exertion) Fatigue History of kidney stones History of UTI Incontinence Joint pain, knee PTSD (post-traumatic stress disorder) Sleep apnea, obstructive Past Surgical History: Social History Socioeconomic History Marital status: Significant Other Spouse name: Not on file Number of children: Not on file Years of education: Not on file Highest education level: Not on file Occupational History Not on file Tobacco Use Smoking status: Never Smokeless tobacco: Never Vaping Use Vaping status: Never Used Substance and Sexual Activity Alcohol use: Not Currently Drug use: Never Sexual activity: Yes Partners: Male control/protection: I.U.D. Other Topics Concern Not on file Social History Narrative Not on file Social Determinants of Health Financial Resource Strain: Low Risk (10/28/2023) Overall Financial Resource Strain (CARDIA) Difficulty of Paying Living Expenses: Not hard at all Food Insecurity: No Food Insecurity (10/28/2023) Hunger Vital Sign Worried About Running Out of Food in the Last Year: Never true Ran Out of Food in the Last Year: Never true Transportation Needs: No Transportation Needs (10/28/2023) PRAPARE - Transportation Lack of Transportation (Medical): No Lack of Transportation (Non-Medical): No Physical Activity: Sufficiently Active (10/28/2023) Exercise Vital Sign Days of Exercise per Week: 3 days Minutes of Exercise per Session: 60 min Stress: No Stress Concern Present (10/28/2023) [employer] - Occupational Stress Questionnaire Feeling of Stress : Not at all Social Connections: Socially Integrated (10/28/2023) Social Connection and Isolation Panel [NHANES] Frequency of Communication with Friends and Family: More than three times a week Frequency of Social Gatherings with Friends and Family: Once a week Attends Mormonism Services: More than 4 times per year Active Member of Clubs or Organizations: Yes Attends Club or Organization Meetings: More than 4 times per year Marital Status: Living with partner Intimate Partner Violence: Not At Risk (10/28/2023) Humiliation, Afraid, Rape, and Kick questionnaire Fear of Current or Ex-Partner: No Emotionally Abused: No Physically Abused: No Sexually Abused: No Housing Stability: Low Risk (10/28/2023) Housing Stability Vital Sign Unable to Pay for Housing in the Last Year: No Number of Times Moved in the Last Year: 1 Homeless in the Last Year: No Family History: Family History Problem Relation Name Age of Onset Cancer Mother Hypertension Mother Obesity Mother Heart disease Father Obesity Father Cancer Maternal Grandmother Heart disease Maternal Grandmother Stroke Maternal Grandfather Hypertension Maternal Grandfather Heart disease Maternal Grandfather Diabetes Maternal Grandfather Obesity Maternal Grandfather Anesthesia problems Maternal Grandfather No family history colon or stomach cancer. Social History: TOBACCO: reports that she has never smoked. She has never used smokeless tobacco. ETOH: reports that she does not currently use alcohol. DRUGS: reports no history of drug use. 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 Decreased appetite, weight loss 2/2 to gastric bypass surgery. No PLATT, visual disturbance, eye pain, jaundice, sore throat or mouth ulcers. No skin rash or itching. No CP,SOB, SANTOS, cough or wheeze. No urinary frequency, urgency, hematuria, or dysuria. No myalgia, arthralgia, or joint swelling. No weakness, numbness, or confusion. GI per HPI. No polyuria, polydipsia, heat or cold intolerance. PHYSICAL EXAM: VS: BP 118/71 (BP Location: Left arm, Patient Position: Sitting) Pulse 82 Temp 36.6 C (97.8 F) (Temporal) Resp 20 Ht 5' 6 (1.676 m) Wt (!) 305 lb (138 kg) LMP 10/28/2023 (Exact Date) SpO2 93% BMI 49.23 kg/m Body mass index is 49.23 kg/m . Constitutional: No acute distress. Well-nourished. Well hydrated Head/Eyes: Pupils are equal and round; Conjunctiva are not injected; Sclera are yellow-tinged. ENT: Ears/nose without external abnormalities. Oral mucosa is pink and moist. Neck: No JVD. No carotid bruits; No thyromegaly. Respiratory: Clear to auscultation bilaterally without any added sounds. Effort is normal Heart: Regular, Normal S1 and S2. No murmur; No added sounds. Abdomen: Normal BS, soft, non-tender, non-distended; no hepatomegaly. Extremities/Skin: No LE edema; Skin warm to touch and well perfused. Musculoskeletal: Head - normocephalic. Neck - supple Psychiatric: AAO x 3, answers appropriately, normal mood, normal affect. No asterixis. Non-focal. DATA: Recent blood work and relevant radiologic and endoscopic studies were reviewed and discussed with the patient. CBC: Recent Labs 10/27/23 0547 10/28/23 0946 10/29/23 0130 WBC 7.3 10.0 7.5 RBC 4.90 5.46* 4.87 HGB 11.2* 12.3 11.0* HCT 35.4 37.9 34.0* MCV 72.2* 69.4* 69.8* MCH 22.9* 22.5* 22.6* MCHC 31.6 32.5 32.4 RDW 17.9* 18.3* 18.3* PLT 169 191 153 CMP: Recent Labs 10/27/23 0547 10/28/23 0946 10/29/23 0130 NA 136 134* 134* K 3.3* 3.5 3.3* CL 101 100 101 CO2 23 23 23 BUN 5* 5* 5* CREATININE 0.65 0.58 0.54 GLUCOSE 73 87 77 CALCIUM 8.3* 8.4 8.2* PROT 6.4 7.5 6.2* BILITOT 3.0* 4.0* 3.6* ALKPHOS 566* 707* 597* AST 374* 475* 377* ALT 256* 280* 229* PT/INR: No results for input(s): INR in the last 72 hours. Lipase 135 < [address] abdomen/pelvis w/ contrast (outside facility, 10/24) - Mild pancreatic fat stranding at head Endoscopic Review Endoscopy 01/12/2023 IMPRESSION/RECOMMENDATIONS: consider primary biliary/bile duct stone vs autoimmune related processes (autoimmune hepatitis, PBC, PSC, Blayne's) Acute pancreatitis, less likely s/p endoscopic Sandra-en-Y bypass surgery with liver wedge resection (05/10/23) s/p cholecystectomy - increased liver function enzymes, intermittent fevers - ALP 597, Albumin 2.8, AST 377, ALT 229, Bilirubin 3.6 - denies epigastric pain, normal lipase levels - Does not meet 2/3 criteria for acute pancreatitis - loss of appetite for over one week - suspect intermittent gallstones, possible hx of intermittent cholangitis Plan: - for MRCP - will follow results - auto-immune work-up ordered (anti-LKM, hep B core antibody, ferritin, cerulopasmin, anti-SMA, AMA, DANGELO, [id number]) - continue LR 75 ml/hr - presently on NPO for procedure (MRCP), suggest diet progression as tolerated post procedure - Monitor/trend LFT - Zofran PRN for nausea - Monitor vitals; Daily labs, replenish electrolytes PRN Patient independently examined and evaluated by resident physician. Agree with above history, physical examination, assessment, and plan with changes/additions made through out. Associated attestation - Carmen Purdy MD - 10/30/2023 7:54 AM EDT Attending Supervising Physician s Attestation Statement I have personally performed and participated in all the above services (including HPI and PE). I have reviewed the case with Advance Practice Provider (MARY)/ resident / student, and agreed with the MARY's / resident / student assessment and plan as above. I have following additions or modifications:Seen on 10-29-23 I did substantive portion of medical decision making. Imaging was done at OSH, patient showed me results on phone which shows mild penny pancreatic stranding at head of pancreas. She had negative MRCP after lap gerardo when she had pancreatitis in 06-15. Doubt she has a stone , agree with imaging with MRCP. Will check for autoimmune hepatitis and other testing to rule out other causes of elevated LFTs. Can have diet after MRCP. Liver biopsy earlier this year showed steatosis. Add total IgG levels, CMV, EBV, HSV serologies. Acute hep panel negative. Unable to EUS given gastric by pass anatomy. Check IgG4 for recurrent acute pancreatitis. Denies EToH Will follow. [facility] * Julio Real MD - 10/29/2023 7:13 AM EDTAssociated Order(s): IP CONSULT TO GENERAL SURGERY GENERAL SURGERY CONSULT PATIENT: Anne Marie Peterson DATE OF : 1995 ATTENDING PHYSICIAN: Manuel Villarreal MD ADMIT DATE: 10/28/2023 TODAY'S DATE: 10/29/2023 CHIEF COMPLAINT LFT Abnormalities, Vomiting HISTORY OF PRESENT ILLNESS Anne Marie Peterson is a 28 y.o. female who presents with abdominal pain, nausea, and abnormal LFTs. The patients reports that she has not been feeling well since last Wednesday. She reports a low grade fever, nausea, and lack of appetite. She underwent laparoscopic gastric bypass in April 2023 and hadan admission related to pancreatitis postoperatively. She underwent extensive workup at this time including RUQ US, MRI, CT abdomen and UGI at that time which did not demonstrate any acute pathology. REVIEW OF SYSTEMS: Constitutional: negative for chills, fevers and weight loss Eyes: negative for visual disturbance Ears, nose, mouth, throat, and face: negative for hearing loss, hoarseness and nasal congestion Respiratory: negative for cough, shortness of breath and wheezing Cardiovascular: negative for chest pressure/discomfort and palpitations Gastrointestinal: negative Genitourinary:negative for dysuria and hematuria Hematologic/lymphatic: negative for easy bruising and lymphadenopathy Musculoskeletal:negative for arthralgias, muscle weakness and myalgias Neurological: negative for coordination problems, dizziness, gait problems and headaches Behavioral/Psych: negative for irritability and mood swings Endocrine: negative for temperature intolerance PAST HISTORIES Past Medical History: Past Medical History: Diagnosis Date Anemia Atrial fibrillation (HCC) 2 episodes Back pain COVID-19 vaccine series completed 10/2020 Daytime sleepiness 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 Memo Duke / Ernst Olson - inguinal hernia LAP GASTRIC BYPASS/SANDRA-EN-Y (HISTORICAL) 05/10/2023 [facility] - Dr. Shannan CROCKETT,CHOLECYSTECTOMY (HISTORICAL) 2009 Dr. Memo Duke / Ernst Olson UPPER GASTROINTESTINAL ENDOSCOPY Current Medications: @[email or web address]@ Allergies: Nsaids Social History: Social History Socioeconomic History Marital status: Significant Other Spouse name: Not on file Number of children: Not on file Years of education: Not on file Highest education level: Not on file Occupational History Not on file Tobacco Use Smoking status: Never Smokeless tobacco: Never Vaping Use Vaping status: Never Used Substance and Sexual Activity Alcohol use: Not Currently Drug use: Never Sexual activity: Yes Partners: Male control/protection: I.U.D. Other Topics Concern Not on file Social History Narrative Not on file Social Determinants of Health Financial Resource Strain: Low Risk (10/28/2023) Overall Financial Resource Strain (CARDIA) Difficulty of Paying Living Expenses: Not hard at all Food Insecurity: No Food Insecurity (10/28/2023) Hunger Vital Sign Worried About Running Out of Food in the Last Year: Never true Ran Out of Food in the Last Year: Never true Transportation Needs: No Transportation Needs (10/28/2023) PRAPARE - Transportation Lack of Transportation (Medical): No Lack of Transportation (Non-Medical): No Physical Activity: Sufficiently Active (10/28/2023) Exercise Vital Sign Days of Exercise per Week: 3 days Minutes of Exercise per Session: 60 min Stress: No Stress Concern Present (10/28/2023) [employer] - Occupational Stress Questionnaire Feeling of Stress : Not at all Social Connections: Socially Integrated (10/28/2023) Social Connection and Isolation Panel [NHANES] Frequency of Communication with Friends and Family: More than three times a week Frequency of Social Gatherings with Friends and Family: Once a week Attends Mormonism Services: More than 4 times per year Active Member of Clubs or Organizations: Yes Attends Club or Organization Meetings: More than 4 times per year Marital Status: Living with partner Intimate Partner Violence: Not At Risk (10/28/2023) Humiliation, Afraid, Rape, and Kick questionnaire Fear of Current or Ex-Partner: No Emotionally Abused: No Physically Abused: No Sexually Abused: No Housing Stability: Low Risk (10/28/2023) Housing Stability Vital Sign Unable to Pay for Housing in the Last Year: No Number of Times Moved in the Last Year: 1 Homeless in the Last Year: No Family History: Family History Problem Relation Name Age of Onset Cancer Mother Hypertension Mother Obesity Mother Heart disease Father Obesity Father Cancer Maternal Grandmother Heart disease Maternal Grandmother Stroke Maternal Grandfather Hypertension Maternal Grandfather Heart disease Maternal Grandfather Diabetes Maternal Grandfather Obesity Maternal Grandfather Anesthesia problems Maternal Grandfather PHYSICAL EXAMINATION VITALS: BP 118/71 (BP Location: Left arm, Patient Position: Sitting) Pulse 82 Temp 36.6 C (97.8F) (Temporal) Resp 20 Ht 5' 6 (1.676 m) Wt (!) 305 lb (138 kg) LMP 10/28/2023 (Exact Date) SpO2 93% BMI 49.23 kg/m Height: @FLOWAMB(11)@; Weight @FLOWAMB(14)@; BMI of Body mass index is 49.23 kg/m .. GENERAL: NAD, resting in bed, no acute distress HEENT: PHI, EOMI, no scleral icterus CARDIO: Regular rate and rhythm PULMONARY: Normal respiratory effort, no respiratory distress, no stridor, chest non-tender ABDOMEN: Soft, non-distended. Slight epigastric TTP. No rebound, no pulsatile abdominal mass, previous incisions consistent with reported surgical history.no hernias present , EXTREMITIES: Skin warm and well perfused, no cyanosis atraumatic NEURO: No focal neuro defectis, motor and sensation grossly intact IMAGING STUDIES AND LABWORK Recent Labs 10/27/23 0547 10/28/23 0946 10/29/23 0130 NA 136 134* 134* K 3.3* 3.5 3.3* CL 101 100 101 CO2 23 23 23 BUN 5* 5* 5* CREATININE 0.65 0.58 0.54 GLUCOSE 73 87 77 CALCIUM 8.3* 8.4 8.2* Recent Labs 10/27/23 0547 10/28/23 0946 10/29/23 0130 WBC 7.3 10.0 7.5 RBC 4.90 5.46* 4.87 HGB 11.2* 12.3 11.0* HCT 35.4 37.9 34.0* MCV 72.2* 69.4* 69.8* MCH 22.9* 22.5* 22.6* MCHC 31.6 32.5 32.4 RDW 17.9* 18.3* 18.3* PLT 169 191 153 Recent Labs 10/28/23 0946 10/29/23 0130 ALKPHOS 707* 597* ALT 280* 229* AST 475* 377* PROT 7.5 6.2* BILITOT 4.0* 3.6* BILIDIR 1.6* -- LIPASE 135 -- IMAGING STUDIES: ASSESSMENT Anne Marie Peterson is a 28 y.o. female presenting with abnormal LFTs and nausea. She has a history of gastric bypass in April 2023, and had an admission for pancreatitis postoperatively. PLAN AND RECOMMENDATIONS Agree with plan for MRI Recommend UGI Surgery will continue to follow Thank you for the opportunity to participate in the care of this patient. Plan of care discussed with Dr. Campbell Associated attestation - Memo Campbell MD - 10/29/2023 1:08 PM EDT Images from the original note were not included. [facility] - Surgery [facility] Physicians Surgery Patient Name: Anne Marie Peterson Date: 10/29/23 Seen and examined. Sitting on the end of the bed, pain-free. States that she felt great last week, tolerating diet before she went to [place]. Imaging including May MRI reviewed as well as imaging and labs from [place] admission. Total and direct bilirubin elevated. MRCP pending. BP 118/71 (BP Location: Left arm, Patient Position: Sitting) Pulse 82 Temp 36.6 C (97.8 F) (Temporal) Resp 20 Ht 5' 6 (1.676 m) Wt (!) 305 lb (138 kg) LMP 10/28/2023 (Exact Date) SpO2 93% BMI 49.23 kg/m CBC: Recent Labs 10/27/23 0547 10/28/23 0946 10/29/23 0130 WBC 7.3 10.0 7.5 HGB 11.2* 12.3 11.0* HCT 35.4 37.9 34.0* PLT 169 191 153 BMP: Recent Labs 10/27/23 0547 10/28/23 0946 10/29/23 0130 NA 136 134* 134* K 3.3* 3.5 3.3* CL 101 100 101 CO2 23 23 23 BUN 5* 5* 5* CREATININE 0.65 0.58 0.54 GLUCOSE 73 87 77 Hepatic: Recent Labs 10/26/232 10/27/2347 10/28/23 0946 10/29/23 0130 ALKPHOS 595* 566* 707* 597* ALT 274* 256* 280* 229* AST 432* 374* 475* 377* PROT 7.2 6.4 7.5 6.2* BILITOT 3.2* 3.0* 4.0* 3.6* BILIDIR 1.2* -- 1.6* -- Abdomen: Soft, nontender, nondistended. Plan: Elevated LFTs including total and direct bilirubin Check MRI/MRCP, history of cholecystectomy 15 years ago at age 14 Patient has a history of gastric bypass -will check labs, including B vitamins and zinc. Labs from 08/15 reviewed VTE prophylaxis Morbid obesity, BMI 49.23 kg/m I personally supervised my Resident/Surgical Fellow in the evaluation and management of Anne Marie Peterson in the development of a treatment plan for this patient. I personally interviewed the patient and performed an individual physical examination. In addition, I discussed the patient's condition and treatment options with them. I have also reviewed and agree with the past medical, family and social history and care plan unless otherwise noted. All of the patient's questions were answered. Total time of 55 minutes spent reviewing the patient's chart, associated and relevant data including labs and imaging as well as discussing/counseling the patient regarding the care plan for this patient. The patient was seen and examined independently and relevant data reviewed by myself. A full chart review was performed. documented in this [facility]09-10-2024 Note* Care Coordination - LUCIA Cruz CNP - 11/02/2023 10:50 AM EDT Department of Internal Medicine Gastroenterology Liver doppler WNL. Primary team notified recommended ID evaluation for positive CMV IGG and IGM andEBV IGM. Transaminitis likely infectious. Follow up with Dr. Malone as recommended. LUCIA Rehman CNP 11/02/2023 [employer] Phone: [phone] Note* Care Coordination - LUCIA Cruz CNP - 11/02/2023 10:50 AM EDT Department of Internal Medicine Gastroenterology Liver doppler WNL. Primary team notified recommended ID evaluation for positive CMV IGG and IGM andEBV IGM. Transaminitis likely infectious. Follow up with Dr. Malone as recommended. LUCIA Rehman CNP 11/02/2023 [employer] Phone: [phone] 290-347709-09-2024 Plan of care note* Care Plan - Indigo Castano RN - 11/01/2023 6:41 PM EDT The patient is Moderately Stable - Low risk of patient condition declining or worsening The patient's goals for the shift include to get some rest The clinical goals for the shift include maintain nausea control Over the shift, the patient did not make progress toward the following goals. Barriers to progression include none. Recommendations to address these barriers include none. [id number] Plan of care note* Care Plan - Aissatou Parson RN - 11/01/2023 6:35 PM EDT The patient is Moderately Stable - Low risk of patient condition declining or worsening The patient's goals for the shift include to get some rest The clinical goals for the shift include maintain nausea control Over the shift, the patient did not make progress toward the following goals. Barriers to progression include none. Recommendations to address these barriers include none. [facility] [id number] Note* Care Coordination - Nancy Vega RN - 11/01/2023 1:36 PM EDT Images from the original note were not included. Care Management Progress Note LABS SLOWLY TRENDING DOWN. ON IV FLUIDS. GI WAITING FOR FURTHER TEST RESULTS. GEN SURG ALSO FOLLOWING. ANTICIPATE DISCHARGE TO HOME, WILL CONTINUE TO FOLLOW. Discharge Milestones and Delays Expected date/time: 10/31/[address] discharge order Complete med reconciliation Case mgmt discharge readiness Clinical Stability Diagnostic Workup Facility Choice Selection Patient Education Complete Expected Discharge History Expected Date/Time Set By Reviewed At 10/31/2023 Johana Ratliff PA-C 10/28/2023 7:09 PM 10/31/2023 Johana Ratliff PA-C 10/28/2023 11:55 AM Length of Stay (Days): 4 GMLOS: No GMLOS Documented [facility] [id number] Note* Care Coordination - Nancy Vega RN - 11/01/2023 1:36 PM EDT Images from the original note were not included. Care Management Progress Note LABS SLOWLY TRENDING DOWN. ON IV FLUIDS. GI WAITING FOR FURTHER TEST RESULTS. GEN SURG ALSO FOLLOWING. ANTICIPATE DISCHARGE TO HOME, WILL CONTINUE TO FOLLOW. Discharge Milestones and Delays Expected date/time: 10/31/[address] discharge order Complete med reconciliation Case mgmt discharge readiness Clinical Stability Diagnostic Workup Facility Choice Selection Patient Education Complete Expected Discharge History Expected Date/Time Set By Reviewed At 10/31/2023 Johana Ratliff PA-C 10/28/2023 7:09 PM 10/31/2023 Johana Ratliff PA-C 10/28/2023 11:55 AM Length of Stay (Days): 4 GMLOS: No GMLOS Documented [facility] [id number] History of Present illness Narrative* Conor Ragland MD - 11/01/2023 9:12 AM EDT Hospitalist Progress Note 11/01/2023 Subjective: Admit Date: 10/28/2023 PCP: Xenia Lane Room#: [id number] A BRIEF HOSPITAL COURSE: 28-year-old female with past medical history significant for paroxysmal A-fib sleep apnea presented[facility] emergency [facility] 1 week ago with complaints of abdominal pain and persistentfever CT abdomen revealed a possible mild pancreatitis with normal lipase levels patient was admitted at [facility] for elevated liver function test and persistent nausea and vomiting with mild pancreatitis but patient left AGAINST MEDICAL ADVICE [facility] patient did not have any abdominal pain had persistent nausea with improving liver function tests gastric GI and general surgeon were consulted here. MRCP: Marked diffuse hepatic steatosis. Hepatosplenomegaly, progressed since prior. Subtle edema within and adjacent to the head and uncinate process of the pancreas, suspicious for mild acute edematous pancreatitis. Correlate with laboratory values. New moderate periportal edema. Periportal and gastrohepatic ligament lymphadenopathy, progressed since prior. General surgery following, no plans for surgical intervention, diet as tolerated GI following, follow serologies, IgG 2182, IgM 222, antimitochondrial antibody 10.4, monotest negative, ferritin 161, recommend ultrasound liver Doppler Interval History: No acute overnight changes Patient is seen and examined Patient is sitting in her bed without in any acute distress Denies any new acute complaints Labs reviewed sodium 132, potassium 3.4, replaced, alkaline phosphatase 557, improving, AST/ALT 361/193, improving, bilirubin 5, stable Case and plan of care discussed with bedside nurse and patient. All questions answered Adult diet Regular 24HR INTAKE/OUTPUT: Intake/Output Summary (Last 24 hours) at 11/01/2023 09 Last data filed at 11/01/2023 0628 Gross per 24 hour Intake 4018.75 ml Output -- Net 4018.75 ml Past Medical History: Past Medical History: Diagnosis Date Anemia Atrial fibrillation (HCC) 2 episodes Back pain COVID-19 vaccine series completed 10/2020 Daytime sleepiness Deficiency of multiple nutrient elements 06/17/2023 SANTOS (dyspnea on exertion) Fatigue History of kidney stones History of UTI Incontinence Intestinal malabsorption 06/17/2023 Joint pain, knee PTSD (post-traumatic stress disorder) Sleep apnea, obstructive uses cpap LABS: CBC: Recent Labs 10/30/2342810/31/23 0500 11/01/23 0553 WBC 7.9 7.5 8.7 RBC 4.77 4.78 4.40 HGB 10.9* 10.8* 9.8* HCT 33.6* 33.8* 30.2* MCV 70.4* 70.7* 68.6* RDW 18.2* 18.9* 18.6* PLT 180 185 191 BMP: Recent Labs 10/30/2342810/31/23 0500 11/01/23 0553 NA 136 133* 132* K 3.5 3.7 3.4* CL 102 100 100 CO2 23 26 26 BUN 4* 2* 3* CREATININE 0.55 0.54 0.47* GLUCOSE 71 76 76 CALCIUM 8.2* 8.4 7.8* ANIONGAP 12 7 5 LIVER PROFILE: Recent Labs 10/30/2342810/31/23 0500 11/01/23 0553 AST 411* 449* 361* ALT 240* 233* 193* BILITOT 4.3* 5.2* 5.0* ALKPHOS 670* 646* 557* PROT 7.0 6.6 6.2* PT/INR: Recent Labs 11/01/23 0553 PROTIME 13.5* INR 1.2* CARDIAC ENZYMES: No results for input(s): TROPONINI in the last 72 hours. Procalcitonin: No results found for: PROCAL COVID-19 PCR: No results for input(s): COVID19 in the last 72 hours. Objective: Vitals: BP 110/73 Pulse 84 Temp 36.1 C (97 F) (Temporal) Resp 16 Ht 5' 6 (1.676 m) Wt (!) 305 lb (138 kg) LMP 10/28/2023 (Exact Date) SpO2 92% BMI 49.23 kg/m Pulse Ox: SpO2 Av % Min: 92 % Max: 96 % Supplemental O2: Physical Exam Constitutional: Appearance: She is obese. HENT: Head: Normocephalic and atraumatic. Mouth/Throat: Mouth: Mucous membranes are moist. Cardiovascular: Rate and Rhythm: Normal rate and regular rhythm. Pulmonary: Effort: Pulmonary effort is normal. Abdominal: Palpations: Abdomen is soft. Skin: General: Skin is warm and dry. Neurological: Mental Status: She is alert and oriented to person, place, and time. Psychiatric: Mood and Affect: Mood normal. Medications: Scheduled PRN cyanocobalamin, 1,000 mcg, IntraMUSCular, q30 days ibuprofen, 600 mg, Oral, Once metoprolol tartrate, 25 mg, Oral, BID polyethylene glycol (PEG) 3350, 17 g, Oral, Daily PRN medications: acetaminophen OR acetaminophen, ondansetron ODT OR ondansetron Continuous lactated Ringer's, 75 mL/hr, Last Rate: 75 mL/hr (11/01/23 06) Assessment Acute, acute on chronic, unstable/uncontrolled chronic problems/diagnoses: Mild acute pancreatitis Elevated LFTs Hypokalemia Stable chronic problems affecting care, new non-acute diagnoses: Paroxysmal A-fib History of gastric bypass Plan As a result of the above findings & factors, the following mgmt was pursued: -Appreciate GI recommendations, MRCP on 10/28, awaiting final report -Continue metoprolol, patient not on any anticoagulation, per cardiology outpatient note patient supposed to take flecainide on as needed basis for A-fib -General Surgery following -Labs reviewed sodium 132, potassium 3.4, replaced, alkaline phosphatase 557, improving, AST/ALT 361/193, improving, bilirubin 5, stable -Replace potassium -Follow ultrasound liver Doppler - am labs, replace lytes prn - PT/OT/CM/SW -SCDs Advance Directive: Full Code Anticipated Discharge - Date -1 to 2 days - Location -Home - Pending the following -clinical improvement, consult recommendations Total time spent (which include face to face and non face to face encounters) : 50.5 minutes minutes Extended Emergency Contact Information Primary Emergency Contact: Dano Orellana [facility] Mobile Relation: Partner Secondary Emergency Contact: Aliyah Peterson Mobile Relation: Mother Conor Ragland MD Division of Hospitalist Medicine [facility] * Jaswinder Chappell MD - 11/01/2023 8:53 AM EDT Images from the original note were not included. Department of Internal Medicine Gastroenterology Progress Note SUBJECTIVE: GI following for elevated LFTs. LFTs and bilirubin are stable with down-trend. Elevated A1A and IGG, acute hepatitis panel negative. Remaining chronic liver disease and infectious work-up pending. MRCP with diffuse hepatic steatosis, worsening hepatosplenomegaly, suspicion for mild acute edematous pancreatitis (recurrent, lipase 135 this admission, no abdominal pain), mild periportal edema, and periportal and gastrohepatic ligament lymphadenopathy progressed since prior imaging. Patient resting in bed, no abdominal pain, nausea, vomiting, diarrhea. Patient is requesting discharge, no acute symptoms at this time, LFTs improving. Medications Scheduled Meds: Current Facility-Administered Medications: acetaminophen (Tylenol) tablet 650 mg, 650 mg, Oral, q6h PRN, 650 mg at 10/30/232058 OR acetaminophen (Tylenol) suppository 650 mg, 650 mg, Rectal, q6h PRN, Manuel Villarreal MD cyanocobalamin (Vitamin B-12) injection 1,000 mcg, 1,000 mcg, IntraMUSCular, q30 days, Julio Real MD, 1,000 mcg at 10/29/23 1410 ibuprofen tablet 600 mg, 600 mg, Oral, Once, Micky Salazar DO lactated Ringer's infusion, 75 mL/hr, IntraVENous, Continuous, Manuel Villarreal MD, Last Rate: 75 mL/hr at 11/01/23 0628, 75 mL/hr at 11/01/23 0628 metoprolol tartrate (Lopressor) tablet 25 mg, 25 mg, Oral, BID, Manuel Villarreal MD, 25 mg at 10/31/232054 ondansetron ODT (Zofran-ODT) disintegrating tablet 4 mg, 4 mg, Oral, q8h PRN OR ondansetron (Zofran) injection 4 mg, 4 mg, IntraVENous, q6h PRN, Manuel Villarreal MD polyethylene glycol (PEG) 3350 (Miralax) packet 17 g, 17 g, Oral, Daily, Ravi Snell MD OBJECTIVE VITALS: BP 110/73 Pulse 84 Temp 36.1 C (97 F) (Temporal) Resp 16 Ht 5' 6 (1.676 m) Wt (!) 305 lb (138 kg) LMP 10/28/2023 (Exact Date) SpO2 92% BMI 49.23 kg/m Average, Min, and Max for last24 hours Vitals: TEMPERATURE: Temp Av.4 C (97.6 F) Min: 36.1 C (97 F) Max: 36.7 C (98.1 F) RESPIRATIONS RANGE: Resp Av Min: 16 Max: 16 PULSE RANGE: Pulse Av Min: 82 Max: 84 BLOOD PRESSURE RANGE: Systolic (24hrs), Av , Min:110 , Max:136 ; Diastolic (24hrs), Av, Min:73, Max:93 PULSE OXIMETRY RANGE:SpO2 Av % Min: 92 % Max: 96 % I/O last 3 completed shifts: In: 4018.8 (29 mL/kg) [P.O.:540; I.V.:3478.8 (25.1 mL/kg)] Out: - (0 mL/kg) Weight: 138.3 kg Constitutional: No acute distress. Well-nourished. Well hydrated, resting in bed Eyes: Pupils are equal and round; Conjunctiva are not injected; Sclera are non-icteric. ENT: Ears/nose without external abnormalities. Oral mucosa is pink and moist. Neck: No JVD. No carotid bruits; No thyromegaly. Respiratory: Clear to auscultation bilaterally without any added sounds. Effort is normal Heart: Regular, Normal S1 and S2. No murmur; No added sounds. Abdomen: Normal BS, soft, non-tender, non-distended; no hepatomegaly. Extremities/Skin: No LE edema; Skin warm to touch and well perfused. Musculoskeletal: Head - normocephalic. Neck - supple Psychiatric: AAO x 3, answers appropriately, normal mood, normal affect. Data Recent blood work, radiologic study and endoscopic study were reviewed with the patient. CBC: Recent Labs 10/30/2342810/31/23 05011/01/23 0553 WBC 7.9 7.5 8.7 RBC 4.77 4.78 4.40 HGB 10.9* 10.8* 9.8* HCT 33.6* 33.8* 30.2* MCV 70.4* 70.7* 68.6* MCH 22.9* 22.6* 22.3* MCHC 32.4 32.0 32.5 RDW 18.2* 18.9* 18.6* PLT 180 185 191 MPV -- -- 10.8 CMP: Recent Labs 10/30/2342810/31/23 0500 11/01/23 0553 NA 136 133* 132* K 3.5 3.7 3.4* CL 102 100 100 CO2 23 26 26 BUN 4* 2* 3* CREATININE 0.55 0.54 0.47* GLUCOSE 71 76 76 CALCIUM 8.2* 8.4 7.8* PROT 7.0 6.6 6.2* BILITOT 4.3* 5.2* 5.0* ALKPHOS 670* 646* 557* AST 411* 449* 361* ALT 240* 233* 193* PT/INR: Recent Labs 11/01/23 0553 INR 1.2* Lab Results Component Value Date LIPASE 135 10/28/2023 Lab Results Component Value Date HEPAIGM Not Detected 10/26/2023 HEPBIGM Not Detected 10/26/2023 HEPCAB Not Detected 10/26/2023 Component Ref Range & Units 2 d ago A-1 Antitrypsin 90 - 200 mg/dL 169 Component Ref Range & Units 2 d ago IgM, Blood 40.0 - 230.0 mg/dL 222.4 Component Ref Range & Units 2 d ago IgG, Blood 700.0 - 1,600.0 mg/dL 2,182.1 High Radiologic Review MRCP 10/29/2023: FINDINGS: Lack of intravenous contrast material limits evaluation of the vascular and visceral structures. Liver: Diffuse hepatic steatosis. Liver is smooth in contour. Moderate periportal edema. Hepatomegaly, progressed since prior. No focal liver lesion. Biliary tree: Cholecystectomy. No significant intrahepatic or extrahepatic ductal dilatation. No evidence of choledocholithiasis. Edema in the suzette hepatis. Spleen: The spleen measures up to 17.3 cm in length. Spleen previously measured up to 13.0 cm in length. Adrenals:Normal Pancreas: There appears to be subtle edema within and adjacent to the head and uncinate process of the pancreas. No loculated peripancreatic fluid collection.. No pancreatic duct dilation. Kidneys: No definite mass or hydronephrosis Lymph nodes: Prominent periportal lymph nodes, measuring up to 14 mm in short axis dimension, increased in size since prior. Enlarged gastrohepatic ligament lymph nodes, measuring up to 15 mm in short axis dimension, increased in size since prior. Status post gastric bypass. No evidence of bowel obstruction. Vasculature: Grossly unremarkable on this noncontrast exam. No significant collaterals or esophageal varices. Visualized Osseous structures: Normal IMPRESSION: Marked diffuse hepatic steatosis. Hepatosplenomegaly, progressed since prior. Subtle edema within and adjacent to the head and uncinate process of the pancreas, suspicious for mild acute edematous pancreatitis. Correlate with laboratory values. New moderate periportal edema. Periportal and gastrohepatic ligament lymphadenopathy, progressed since prior. US Abdomen 06/08/2023: FINDINGS: Pancreas: The pancreas is obscured by bowel gas Liver: Generalized increased echogenicity likely corresponding to fatty infiltration. Normal size and contour. No focal lesion identified. Gallbladder: Surgically absent. . Bile ducts: No intrahepatic and extrahepatic biliary dilatation Common bile duct: 6.9 mm Right kidney: Normal size measuring 13.2 cm. Normal parenchymal echogenicity without solid mass or hydronephrosis. Left kidney: Normal size measuring 13.2 cm. Normal parenchymal echogenicity without solid mass or hydronephrosis. Spleen: Normal size measuring 12.0 cm. Normal echogenicity without a lesion. Aorta and Inferior vena cava: Not well visualized due to overlying bowel gas Ascites: None IMPRESSION: 1. Echogenic liver suggesting hepatic steatosis. Endoscopic Review EGD with Dr. Campbell for Pre-op Bariatric Surgery 01/12/2023: ASSESSMENT AND PLAN Elevated LFTs with jaundice. Recurrent acute pancreatitis. s/p Sandra-en-Y bypass surgery with liver wedge resection (05/10/23) s/p cholecystectomy Hepatic steatosis on liver biopsy Plan: - Awaiting chronic liver disease and infectious work-up. Patient may follow up outpatient with established GI provider Dr. Malone. Message sent to Dr. Malone's office requesting close follow up. - Continue to trend LFTs and INR daily. - Recommend US liver doppler. - Continue medical management and supportive care per primary team. The GI/Liver consult service will sign off. Please call if there are any questions, concerns or change of patient's GI condition. Thanks. I have independently seen, interviewed, and examined the patient. I have reviewed the case with theMedical Student/Resident/PA and reviewed their consult/progress note in addition to personally discussing the patient. Included in my assessment was review of the information contained in this progress note, the patient's medical record, and independent review of labs, radiology reports, and imageswhen appropriate. I agree with all of the above. Approximately 25 minutes was involved with the clinical decision making. Impression; acute on chronic elevated LFTs. Follow up with Dr. Malone for further evaluation (CMV and EBV titers subsequently noted). Plan as above. Patient may eventually require outpatient liver biopsy. * Julio Real MD - 11/01/2023 7:56 AM EDT Images from the original note were not included. Department of Surgery - Progress Note - Surg 4 (Bariatric Surgery) Patient Name: Anne Marie Peterson : 1995 Attending Physician: Conor Ragland MD Admit Date: 10/28/2023 Today's Date: 11/01/2023 Subjective: Pt denies pain. Tolerating diet well. No nausea or vomiting. MRCP findings noted. ROS: As above unless otherwise noted below: Objective: VITALS: BP 110/73 Pulse 84 Temp 36.1 C (97 F) (Temporal) Resp 16 Ht 5' 6 (1.676 m) Wt (!) 305 lb (138 kg) BMI 49.23 kg/m Intake/Output: Physical Exam Vitals and nursing note reviewed. Constitutional: General: She is not in acute distress. Appearance: She is not toxic-appearing. HENT: Head: Normocephalic and atraumatic. Right Ear: External ear normal. Left Ear: External ear normal. Nose: Nose normal. No rhinorrhea. Mouth/Throat: Mouth: Mucous membranes are moist. Pharynx: No posterior oropharyngeal erythema. Eyes: General: Right eye: No discharge. Left eye: No discharge. Conjunctiva/sclera: Conjunctivae normal. Pulmonary: Effort: Pulmonary effort is normal. No respiratory distress. Breath sounds: No stridor. Abdominal: General: A surgical scar is present. There is no distension. Palpations: Abdomen is soft. Tenderness: There is no abdominal tenderness. There is no guarding or rebound. Comments: Old surgical incisions are well-healed, CDI Skin: General: Skin is warm. Capillary Refill: Capillary refill takes less than 2 seconds. Neurological: General: No focal deficit present. Mental Status: She is alert and oriented to person, place, and time. Mental status is at baseline. Psychiatric: Mood and Affect: Mood normal. Thought Content: Thought content normal. Labs: -Reviewed Imaging: -Reviewed Current Inpatient Medications: cyanocobalamin, 1,000 mcg, IntraMUSCular, q30 days ibuprofen, 600 mg, Oral, Once metoprolol tartrate, 25 mg, Oral, BID polyethylene glycol (PEG) 3350, 17 g, Oral, Daily lactated Ringer's, 75 mL/hr, Last Rate: 75 mL/hr (11/01/23 0628) PRN medications: acetaminophen OR acetaminophen, ondansetron ODT OR ondansetron Assessment and Plan: Principal Problem: Transaminitis Active Problems: Morbid obesity with BMI of 45.0-49.9, adult (HCC) History of gastric bypass Deficiency of multiple nutrient elements Elevated LFTs Nausea with vomiting, unspecified Anne Marie Peterson is a 28 y.o. female with abnormal LFTs and nausea. She has a history of gastric bypass in April 2023, and had an admission for pancreatitis postoperatively. No plans for surgical intervention MRCP: No CBD or intrahepatic dilation. Hepatosplenomegaly, pancreatic edema , portal edema, some periportal and gastrohepatic lymphadenopathy Increasing LFTs continue to trend IgG elevated PT/INR slightly elevated Daily bowel regimen GI consulted and following PRN analgesics/antiemetics Diet: as tolerated Other medical care primary team Will discuss with Dr. Brown Associated attestation - Memo Campbell MD - 11/02/2023 5:01 PM EDT Tolerating p.o. without nausea and vomiting, nausea vomiting resolved. MRCP negative. GI workup underway. Please call for any questions or concerns. * Conor Ragland MD - 10/31/2023 9:49 AM EDT Hospitalist Progress Note 10/31/2023 Subjective: Admit Date: 10/28/2023 PCP: Xenia Lane Room#: [id number] BRIEF HOSPITAL COURSE: 28-year-old female with past medical history significant for paroxysmal A-fib sleep apnea presentedto emergency room at [facility] 1 week ago with complaints of abdominal pain and persistentfever CT abdomen revealed a possible mild pancreatitis with normal lipase levels patient was admitted at [facility] for elevated liver function test and persistent nausea and vomiting with mild pancreatitis but patient left AGAINST MEDICAL ADVICE [facility] patient did not have any abdominal pain had persistent nausea with improving liver function tests gastric GI and general surgeon were consulted here. General surgery following, no plans for surgical intervention, awaiting MRCP final results, diet astolerated GI following, follow serologies and MRCP results, consider a Doppler if MRCP negative Interval History: No acute overnight changes Patient is seen and examined She is comfortably sitting in her bed, family is visiting her, denies any new acute complaints Labs reviewed alkaline phosphatase 646, improving, AST/ALT 449/233, relatively stable, bilirubin 5.2, mildly elevated than yesterday Case and plan of care discussed with bedside nurse and patient. All questions answered Adult diet Regular 24HR INTAKE/OUTPUT: No intake or output data in the 24 hours ending 10/31/23 0951 Past Medical History: Past Medical History: Diagnosis Date Anemia Atrial fibrillation (HCC) 2 episodes Back pain COVID-19 vaccine series completed 10/2020 Daytime sleepiness Deficiency of multiple nutrient elements 06/17/2023 SANTOS (dyspnea on exertion) Fatigue History of kidney stones History of UTI Incontinence Intestinal malabsorption 06/17/2023 Joint pain, knee PTSD (post-traumatic stress disorder) Sleep apnea, obstructive uses cpap LABS: CBC: Recent Labs 10/29/2312910/30/2342810/31/23 0500 WBC 7.5 7.9 7.5 RBC 4.87 4.77 4.78 HGB 11.0* 10.9* 10.8* HCT 34.0* 33.6* 33.8* MCV 69.8* 70.4* 70.7* RDW 18.3* 18.2* 18.9* PLT 153 180 185 BMP: Recent Labs 10/29/2312910/30/2342810/31/23 0500 NA 134* 136 133* K 3.3* 3.5 3.7 CL 101 102 100 CO2 23 23 26 BUN 5* 4* 2* CREATININE 0.54 0.55 0.54 GLUCOSE 77 71 76 CALCIUM 8.2* 8.2* 8.4 ANIONGAP 10 12 7 LIVER PROFILE: Recent Labs 10/29/2312910/30/2342810/31/23 0500 AST 377* 411* 449* ALT 229* 240* 233* BILITOT 3.6* 4.3* 5.2* ALKPHOS 597* 670* 646* PROT 6.2* 7.0 6.6 PT/INR: No results for input(s): PROTIME, INR in the last 72 hours. CARDIAC ENZYMES: No results for input(s): TROPONINI in the last 72 hours. Procalcitonin: No results found for: PROCAL COVID-19 PCR: No results for input(s): COVID19 in the last 72 hours. Objective: Vitals: BP 132/95 (BP Location: Left arm, Patient Position: Sitting) Pulse 83 Temp 36.6 C (97.9F) (Temporal) Resp 18 Ht 5' 6 (1.676 m) Wt (!) 305 lb (138 kg) LMP 10/28/2023 (Exact Date) SpO2 96% BMI 49.23 kg/m Pulse Ox: SpO2 Av.8 % Min: 95 % Max: 96 % Supplemental O2: Physical Exam Constitutional: Appearance: She is obese. HENT: Head: Normocephalic and atraumatic. Mouth/Throat: Mouth: Mucous membranes are moist. Cardiovascular: Rate and Rhythm: Normal rate and regular rhythm. Pulmonary: Effort: Pulmonary effort is normal. Abdominal: Palpations: Abdomen is soft. Skin: General: Skin is warm and dry. Neurological: Mental Status: She is alert and oriented to person, place, and time. Psychiatric: Mood and Affect: Mood normal. Medications: Scheduled PRN cyanocobalamin, 1,000 mcg, IntraMUSCular, q30 days ibuprofen, 600 mg, Oral, Once metoprolol tartrate, 25 mg, Oral, BID polyethylene glycol (PEG) 3350, 17 g, Oral, Daily PRN medications: acetaminophen OR acetaminophen, ondansetron ODT OR ondansetron Continuous lactated Ringer's, 75 mL/hr, Last Rate: 75 mL/hr (10/31/23 0846) Assessment Acute, acute on chronic, unstable/uncontrolled chronic problems/diagnoses: Mild acute pancreatitis Elevated LFTs Stable chronic problems affecting care, new non-acute diagnoses: Paroxysmal A-fib History of gastric bypass Plan As a result of the above findings & factors, the following mgmt was pursued: -Appreciate GI recommendations, MRCP on 10/28, awaiting final report -Continue metoprolol, patient not on any anticoagulation, per cardiology outpatient note patient supposed to take flecainide on as needed basis for A-fib -General Surgery following -Labs reviewed alkaline phosphatase 646, improving, AST/ALT 449/233, relatively stable, bilirubin 5.2, mildly elevated than yesterday - am labs, replace lytes prn - PT/OT/CM/SW -SCDs Advance Directive: Full Code Anticipated Discharge - Date -10/31/2023 - Location -Home - Pending the following -clinical improvement, consult recommendations Total time spent (which include face to face and non face to face encounters) : 36.5 minutes minutes Extended Emergency Contact Information Primary Emergency Contact: Dano Orellana [facility] Mobile Relation: Partner Secondary Emergency Contact: Aliyah Peterson Mobile Relation: Mother Boriserika Andre Ragland MD Division of Hospitalist Medicine [facility] * Carmen Purdy MD - 10/31/2023 8:59 AM EDT Department of Internal Medicine Gastroenterology Progress Note SUBJECTIVE: GI following for elevated LFTs . She is asymptomatic. Medications Scheduled Meds: Current Facility-Administered Medications: acetaminophen (Tylenol) tablet 650 mg, 650 mg, Oral, q6h PRN, 650 mg at 10/30/232058 OR acetaminophen (Tylenol) suppository 650 mg, 650 mg, Rectal, q6h PRN, Manuel Villarreal MD cyanocobalamin (Vitamin B-12) injection 1,000 mcg, 1,000 mcg, IntraMUSCular, q30 days, Julio Real MD, 1,000 mcg at 10/29/23 1410 ibuprofen tablet 600 mg, 600 mg, Oral, Once, Micky Salazar DO lactated Ringer's infusion, 75 mL/hr, IntraVENous, Continuous, Manuel Villarreal MD, Last Rate: 75 mL/hr at 10/31/23 0846, 75 mL/hr at 10/31/23 0846 metoprolol tartrate (Lopressor) tablet 25 mg, 25 mg, Oral, BID, Manuel Villarreal MD, 25 mg at 10/30/232049 ondansetron ODT (Zofran-ODT) disintegrating tablet 4 mg, 4 mg, Oral, q8h PRN OR ondansetron (Zofran) injection 4 mg, 4 mg, IntraVENous, q6h PRN, Manuel Villarreal MD polyethylene glycol (PEG) 3350 (Miralax) packet 17 g, 17 g, Oral, Daily, Ravi Snell MD OBJECTIVE VITALS: BP 132/95 (BP Location: Left arm, Patient Position: Sitting) Pulse 83 Temp 36.6 C (97.9F) (Temporal) Resp 18 Ht 5' 6 (1.676 m) Wt (!) 305 lb (138 kg) LMP 10/28/2023 (Exact Date) SpO2 96% BMI 49.23 kg/m Average, Min, and Max for last24 hours Vitals: TEMPERATURE: Temp Av.6 C (97.9 F) Min: 36.3 C (97.3 F) Max: 36.9 C (98.4 F) RESPIRATIONS RANGE: Resp Av.7 Min: 16 Max: 18 PULSE RANGE: Pulse Av.3 Min: 83 Max: 104 BLOOD PRESSURE RANGE: Systolic (24hrs), Av , Min:132 , Max:144 ; Diastolic (24hrs), Av, Min:85, Max:101 PULSE OXIMETRY RANGE:SpO2 Av.8 % Min: 95 % Max: 96 % No intake/output data recorded. Constitutional: No acute distress. Well-nourished. Well hydrated, obese Eyes: Pupils are equal and round; Conjunctiva are not injected; Sclera are icteric. ENT: Ears/nose without external abnormalities. Oral mucosa is pink and moist. Neck: No JVD. No carotid bruits; No thyromegaly. Respiratory: Clear to auscultation bilaterally without any added sounds. Effort is normal Heart: Regular, Normal S1 and S2. No murmur; No added sounds. Abdomen: Normal BS, soft, non-tender, non-distended; no hepatomegaly. Extremities/Skin: No LE edema; Skin warm to touch and well perfused. Musculoskeletal: Head - normocephalic. Neck - supple Data Recent blood work, radiologic study and endoscopic study were reviewed with the patient. CBC: Recent Labs 10/29/23 0130 10/30/23 0429 10/31/23 0500 WBC 7.5 7.9 7.5 RBC 4.87 4.77 4.78 HGB 11.0* 10.9* 10.8* HCT 34.0* 33.6* 33.8* MCV 69.8* 70.4* 70.7* MCH 22.6* 22.9* 22.6* MCHC 32.4 32.4 32.0 RDW 18.3* 18.2* 18.9* PLT 153 180 185 CMP: Recent Labs 10/29/23 0130 10/30/23 0429 10/31/23 0500 NA 134* 136 133* K 3.3* 3.5 3.7 CL 101 102 100 CO2 23 23 26 BUN 5* 4* 2* CREATININE 0.54 0.55 0.54 GLUCOSE 77 71 76 CALCIUM 8.2* 8.2* 8.4 PROT 6.2* 7.0 6.6 BILITOT 3.6* 4.3* 5.2* ALKPHOS 597* 670* 646* AST 377* 411* 449* ALT 229* 240* 233* ASSESSMENT AND PLAN Elevated LFTs with jaundice. Recurrent acute pancreatitis. s/p endoscopic Sandra-en-Y bypass surgery with liver wedge resection (05/10/23) s/p cholecystectomy Hepatic steatosis on liver biopsy MRCP read pending, cbd appearing very small on my review without intrahepatic dilation. Autoimmune and infectious work up pending Elevated IGG levels. Follow up serologies and MRCP results. Hopefully we will some serologies back by tomorrow. Check INR Consider a doppler if MRCP negative. Denies any new medications. * Ravi Snell MD - 10/31/2023 8:09 AM EDT Images from the original note were not included. Department of Surgery - Progress Note - Surg 4 (Bariatric Surgery) Patient Name: Anne Marie Peterson : 1995 Attending Physician: Conor Ragland MD Admit Date: 10/28/2023 Today's Date: 10/31/2023 Subjective: NAEON. Patient reports pain is well controlled. Patient denies any N/V/F/C/CP/SOB. Passing flatus; had a small bowel movement yesterday ROS: As above unless otherwise noted below: Objective: VITALS: BP 138/85 (BP Location: Left arm, Patient Position: Lying) Pulse 86 Temp 36.9 C (98.4 F) (Temporal) Resp 16 Ht 5' 6 (1.676 m) Wt (!) 305 lb (138 kg) BMI 49.23 kg/m Intake/Output: Physical Exam Vitals and nursing note reviewed. Constitutional: General: She is not in acute distress. Appearance: She is not toxic-appearing. HENT: Head: Normocephalic and atraumatic. Right Ear: External ear normal. Left Ear: External ear normal. Nose: Nose normal. No rhinorrhea. Mouth/Throat: Mouth: Mucous membranes are moist. Pharynx: No posterior oropharyngeal erythema. Eyes: General: Right eye: No discharge. Left eye: No discharge. Conjunctiva/sclera: Conjunctivae normal. Pulmonary: Effort: Pulmonary effort is normal. No respiratory distress. Breath sounds: No stridor. Abdominal: General: A surgical scar is present. There is no distension. Palpations: Abdomen is soft. Tenderness: There is no abdominal tenderness. There is no guarding or rebound. Comments: Old surgical incisions are well-healed, CDI Skin: General: Skin is warm. Capillary Refill: Capillary refill takes less than 2 seconds. Neurological: General: No focal deficit present. Mental Status: She is alert and oriented to person, place, and time. Mental status is at baseline. Psychiatric: Mood and Affect: Mood normal. Thought Content: Thought content normal. Labs: -Reviewed Imaging: -Reviewed Current Inpatient Medications: cyanocobalamin, 1,000 mcg, IntraMUSCular, q30 days ibuprofen, 600 mg, Oral, Once metoprolol tartrate, 25 mg, Oral, BID polyethylene glycol (PEG) 3350, 17 g, Oral, Daily lactated Ringer's, 75 mL/hr, Last Rate: 75 mL/hr (10/28/23 9585) PRN medications: acetaminophen OR acetaminophen, ondansetron ODT OR ondansetron Assessment and Plan: Principal Problem: Transaminitis Active Problems: Morbid obesity with BMI of 45.0-49.9, adult (HCC) History of gastric bypass Deficiency of multiple nutrient elements Elevated LFTs Nausea with vomiting, unspecified Anne Marie Peterson is a 28 y.o. female with abnormal LFTs and nausea. She has a history of gastric bypass in April 2023, and had an admission for pancreatitis postoperatively. No plans for surgical intervention Awaiting MRCP final results Increasing LFTs continue to trend Will order PT and INR Daily bowel regimen GI consulted and following PRN analgesics/antiemetics Diet: as tolerated Other medical care primary team Will discuss with Jaqui Mcgrath MD Ravi Snell MD Department of Surgery Pager: [phone] PAGING / YupiCall Secure Chat: From - (-s): YupiCall Secure Chat (FIRST) or Pager above (EMERGENT/Second) From - (-s): Find resident provider under [facility] Surgery - General - Surgical ICU Patients: Select 'ACH GEN SURG Night Float ICU RES' or Page x1794 - Surgical Floor Patients: Select 'ACH GEN SURG Night Float Floor RES' or Page x1799 Disclaimers: INFORMED CONSENT: The nature and purpose of the proposed treatment and/or procedure have been discussed. The risks and benefits of the proposed treatment or procedures have been reviewed. Alternatives have been reviewed in addition to the risks and benefits of not receiving treatments or undergoingprocedures. Pursuant to this discussion, the patient agrees to undergo the proposed treatment or procedure. Captured images seen in this note are not a substitute for a comprehensive interpretation of the entire data set as reflected by the interpreting physician with regard to radiology, echocardiography,and other diagnostic images. This note may have been dictated using Emergency CallWorks Practice Edition and/or Personalis Voice Recognition Feature. The document was proofread; however, unrecognized voice recognition sheet metal roofer errors may be present. Associated attestation - Fernando Dailey MD - 11/01/2023 7:57 AM EDT No pain. Abdomen soft. Lfts still uptrending. D/w dr vanessa alford, w/u for autoimmune hepatitis, chekcing labs. No surgical intervention at this time. F/u mrcp. I saw and evaluated the patient on the date of service as documented on resident/fellow note. I agree with the findings and plan of care as documented in the resident/fellow's note. The total time spent during this patient encounter includes the face to face interaction with the patient and/or family, chart review, coordination with other providers, and documentation. Additionally, we discussed the risks and the overall treatment plan including any benefits or drawbacks of surgery as well as the preoperative and postoperative care plan for this patient. Total time and encounter type: Subsequent low [id number], 25-34 minutes * Ravi Snell MD - 10/30/2023 10:32 AM EDT Images from the original note were not included. Department of Surgery - Progress Note - Surg 4 (Bariatric Surgery) Patient Name: Anne Marie Peterson : 1995 Attending Physician: Conor Ragland MD Admit Date: 10/28/2023 Today's Date: 10/30/2023 Subjective: NAEON. Patient reports pain is well controlled. Patient denies any N/V/F/C/CP/SOB. Passing flatus; however, has not had a bowel movement in 4-5 days; however, reports minimal oral intake ROS: As above unless otherwise noted below: Objective: VITALS: BP 124/86 (BP Location: Left arm, Patient Position: Sitting) Pulse 85 Temp 36.4 C (97.6F) (Temporal) Resp 18 Ht 5' 6 (1.676 m) Wt (!) 305 lb (138 kg) BMI 49.23 kg/m Intake/Output: Physical Exam Vitals and nursing note reviewed. Constitutional: General: She is not in acute distress. Appearance: She is not toxic-appearing. HENT: Head: Normocephalic and atraumatic. Right Ear: External ear normal. Left Ear: External ear normal. Nose: Nose normal. No rhinorrhea. Mouth/Throat: Mouth: Mucous membranes are moist. Pharynx: No posterior oropharyngeal erythema. Eyes: General: Right eye: No discharge. Left eye: No discharge. Conjunctiva/sclera: Conjunctivae normal. Pulmonary: Effort: Pulmonary effort is normal. No respiratory distress. Breath sounds: No stridor. Abdominal: General: A surgical scar is present. There is no distension. Palpations: Abdomen is soft. Tenderness: There is no abdominal tenderness. There is no guarding or rebound. Comments: Old surgical incisions are well-healed, CDI Skin: General: Skin is warm. Capillary Refill: Capillary refill takes less than 2 seconds. Neurological: General: No focal deficit present. Mental Status: She is alert and oriented to person, place, and time. Mental status is at baseline. Psychiatric: Mood and Affect: Mood normal. Thought Content: Thought content normal. Labs: -Reviewed Imaging: -Reviewed Current Inpatient Medications: cyanocobalamin, 1,000 mcg, IntraMUSCular, q30 days metoprolol tartrate, 25 mg, Oral, BID lactated Ringer's, 75 mL/hr, Last Rate: 75 mL/hr (10/28/23 8525) PRN medications: acetaminophen OR acetaminophen, ondansetron ODT OR ondansetron, polyethylene glycol (PEG) 3350 Assessment and Plan: Principal Problem: Transaminitis Active Problems: Morbid obesity with BMI of 45.0-49.9, adult (HCC) History of gastric bypass Deficiency of multiple nutrient elements Elevated LFTs Nausea with vomiting, unspecified Anne Marie Peterson is a 28 y.o. female with abnormal LFTs and nausea. She has a history of gastric bypass in April 2023, and had an admission for pancreatitis postoperatively. No plans for surgical intervention Awaiting MRCP final results Increasing LFTs continue to trend Daily bowel regimen GI consulted and following PRN analgesics/antiemetics Diet: as tolerated Other medical care primary team Will discuss with Jaqui Mcgrath MD Ravi Snell MD Department of Surgery Pager: [phone] PAGING / YupiCall Secure Chat: From 6a-6p (- weekends): YupiCall Secure Chat (FIRST) or Pager above (EMERGENT/Second) From 6p-6a (- weekends): Find resident provider under [facility] Surgery - General - Surgical ICU Patients: Select 'ACH GEN SURG Night Float ICU RES' or Page x1554 - Surgical Floor Patients: Select 'ACH GEN SURG Night Float Floor RES' or Page x1946 Disclaimers: INFORMED CONSENT: The nature and purpose of the proposed treatment and/or procedure have been discussed. The risks and benefits of the proposed treatment or procedures have been reviewed. Alternatives have been reviewed in addition to the risks and benefits of not receiving treatments or undergoingprocedures. Pursuant to this discussion, the patient agrees to undergo the proposed treatment or procedure. Captured images seen in this note are not a substitute for a comprehensive interpretation of the entire data set as reflected by the interpreting physician with regard to radiology, echocardiography,and other diagnostic images. This note may have been dictated using Emergency CallWorks Practice Edition and/or Personalis Voice Recognition Feature. The document was proofread; however, unrecognized voice recognition sheet metal roofer errors may be present. Associated attestation - Fernando Dailey MD - 11/01/2023 7:57 AM EDT Pt was off floor during rounds. * Lucrecia Feliciano - 10/30/2023 8:44 AM EDT Nutrition rescreen completed. Chart reviewed. Patient to be monitored and followed by the diet compounding technician. Dietitian available upon request. * Conor Ragland MD - 10/30/2023 8:31 AM EDT Hospitalist Progress Note 10/30/2023 Subjective: Admit Date: 10/28/2023 PCP: X[facility]#: [id number] A BRIEF HOSPITAL COURSE: 28-year-old female with past medical history significant for paroxysmal A-fib sleep apnea presentedto emergency room at [facility] 1 week ago with complaints of abdominal pain and persistentfever CT abdomen revealed a possible mild pancreatitis with normal lipase levels patient was admitted at [facility] for elevated liver function test and persistent nausea and vomiting with mild pancreatitis but patient left AGAINST MEDICAL ADVICE [facility] patient did not have any abdominal pain had persistent nausea with improving liver function tests gastric GI and general surgeon were consulted here. General surgery following, no plans for surgical intervention, awaiting MRCP final results, diet astolerated GI following Interval History: No acute overnight changes Patient is seen and examined She is sitting in her bedside chair comfortably without in any acute distress Denies any new acute complaints Labs reviewed alkaline phosphatase 670, mildly elevated than yesterday, AST/ALT 411/240, bilirubin 4.3, mildly elevated than yesterday Case and plan of care discussed with bedside nurse and patient. All questions answered Adult diet Full liquid 24HR INTAKE/OUTPUT: No intake or output data in the 24 hours ending 10/30/23 0832 Past Medical History: Past Medical History: Diagnosis Date Anemia Atrial fibrillation (HCC) 2 episodes Back pain COVID-19 vaccine series completed 10/2020 Daytime sleepiness Deficiency of multiple nutrient elements 06/17/2023 SANTOS (dyspnea on exertion) Fatigue History of kidney stones History of UTI Incontinence Intestinal malabsorption 06/17/2023 Joint pain, knee PTSD (post-traumatic stress disorder) Sleep apnea, obstructive uses cpap LABS: CBC: Recent Labs 10/28/2394510/29/2312910/30/23428 WBC 10.0 7.5 7.9 RBC 5.46* 4.87 4.77 HGB 12.3 11.0* 10.9* HCT 37.9 34.0* 33.6* MCV 69.4* 69.8* 70.4* RDW 18.3* 18.3* 18.2* PLT 191 153 180 BMP: Recent Labs 10/28/2394510/29/2312910/30/23428 NA 134* 134* 136 K 3.5 3.3* 3.5 CL 100 101 102 CO2 23 23 23 BUN 5* 5* 4* CREATININE 0.58 0.54 0.55 GLUCOSE 87 77 71 CALCIUM 8.4 8.2* 8.2* ANIONGAP 11 10 12 LIVER PROFILE: Recent Labs 10/28/2394510/29/2312910/30/23428 AST 475* 377* 411* ALT 280* 229* 240* BILITOT 4.0* 3.6* 4.3* ALKPHOS 707* 597* 670* PROT 7.5 6.2* 7.0 PT/INR: No results for input(s): PROTIME, INR in the last 72 hours. CARDIAC ENZYMES: No results for input(s): TROPONINI in the last 72 hours. Procalcitonin: No results found for: PROCAL COVID-19 PCR: No results for input(s): COVID19 in the last 72 hours. Objective: Vitals: BP 124/86 (BP Location: Left arm, Patient Position: Sitting) Pulse 85 Temp 36.4 C (97.6F) (Temporal) Resp 18 Ht 5' 6 (1.676 m) Wt (!) 305 lb (138 kg) LMP 10/28/2023 (Exact Date) SpO2 95% BMI 49.23 kg/m Pulse Ox: SpO2 Av % Min: 95 % Max: 97 % Supplemental O2: Physical Exam Constitutional: Appearance: She is obese. HENT: Head: Normocephalic and atraumatic. Mouth/Throat: Mouth: Mucous membranes are moist. Cardiovascular: Rate and Rhythm: Normal rate and regular rhythm. Pulmonary: Effort: Pulmonary effort is normal. Abdominal: Palpations: Abdomen is soft. Skin: General: Skin is warm and dry. Neurological: Mental Status: She is alert and oriented to person, place, and time. Psychiatric: Mood and Affect: Mood normal. Medications: Scheduled PRN cyanocobalamin, 1,000 mcg, IntraMUSCular, q30 days metoprolol tartrate, 25 mg, Oral, BID PRN medications: acetaminophen OR acetaminophen, ondansetron ODT OR ondansetron, polyethylene glycol (PEG) 3350 Continuous lactated Ringer's, 75 mL/hr, Last Rate: 75 mL/hr (10/28/23 1735) Assessment Acute, acute on chronic, unstable/uncontrolled chronic problems/diagnoses: Mild acute pancreatitis Elevated LFTs Stable chronic problems affecting care, new non-acute diagnoses: Paroxysmal A-fib History of gastric bypass Plan As a result of the above findings & factors, the following mgmt was pursued: -Appreciate GI recommendations, MRCP on 10/28, awaiting final report -Continue metoprolol, patient not on any anticoagulation, per cardiology outpatient note patient supposed to take flecainide on as needed basis for A-fib -LFTs improving, general surgeon on board plan for UGI. - am labs, replace lytes prn - PT/OT/CM/SW -SCDs Advance Directive: Full Code Anticipated Discharge - Date -10/31/2023 - Location -Home - Pending the following -clinical improvement, consult recommendations Total time spent (which include face to face and non face to face encounters) : 35.5 minutes minutes Extended Emergency Contact Information Primary Emergency Contact: Dano Orellana [facility] Mobile Relation: Partner Secondary Emergency Contact: Aliyah Peterson Mobile Relation: Mother Conor Ragladn MD Division of Hospitalist Medicine [facility] * Ashely Ochoa MD - 10/29/2023 11:47 AM EDT Hospitalist Progress Note 10/29/2023 Subjective: Admit Date: 10/28/2023 PCP: Xenia Cl[facility] Room#: [id number] A BRIEF HOSPITAL COURSE: 28-year-old female with past medical history significant for paroxysmal A-fib sleep apnea presentedto emergency room at [facility] 1 week ago with complaints of abdominal pain and persistentfever CT abdomen revealed a possible mild pancreatitis with normal lipase levels patient was admitted at [facility] for elevated liver function test and persistent nausea and vomiting with mild pancreatitis but patient left AGAINST MEDICAL ADVICE [facility] presentation patient did not have any abdominal pain had persistent nausea with improving liver function tests gastric GI and general surgeon were consulted here. Interval History: Patient reports nausea improved since yesterday no abdominal pain, wants to do a trial of clear liquid diet. No further fevers. Patient reports no flatus for the last 3 days, no bowel movements. 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 SANTOS (dyspnea on exertion) Fatigue History of kidney stones History of UTI Incontinence Intestinal malabsorption 06/17/2023 Joint pain, knee PTSD (post-traumatic stress disorder) Sleep apnea, obstructive uses cpap LABS: CBC: Recent Labs 10/27/23 0547 10/28/23 0946 10/29/23 0130 WBC 7.3 10.0 7.5 RBC 4.90 5.46* 4.87 HGB 11.2* 12.3 11.0* HCT 35.4 37.9 34.0* MCV 72.2* 69.4* 69.8* RDW 17.9* 18.3* 18.3* PLT 169 191 153 BMP: Recent Labs 10/27/23 0547 10/28/23 0946 10/29/23 0130 NA 136 134* 134* K 3.3* 3.5 3.3* CL 101 100 101 CO2 23 23 23 BUN 5* 5* 5* CREATININE 0.65 0.58 0.54 GLUCOSE 73 87 77 CALCIUM 8.3* 8.4 8.2* ANIONGAP 12 11 10 LIVER PROFILE: Recent Labs 10/27/2354610/28/23 0946 10/29/23 0130 AST 374* 475* 377* ALT 256* 280* 229* BILITOT 3.0* 4.0* 3.6* ALKPHOS 566* 707* 597* PROT 6.4 7.5 6.2* PT/INR: No results for input(s): PROTIME, INR in the last 72 hours. CARDIAC ENZYMES: No results for input(s): TROPONINI in the last 72 hours. Procalcitonin: No results found for: PROCAL COVID-19 PCR: No results for input(s): COVID19 in the last 72 hours. Objective: Vitals: BP 118/71 (BP Location: Left arm, Patient Position: Sitting) Pulse 82 Temp 36.6 C (97.8F) (Temporal) Resp 20 Ht 5' 6 (1.676 m) Wt (!) 305 lb (138 kg) LMP 10/28/2023 (Exact Date) SpO2 93% BMI 49.23 kg/m Pulse Ox: SpO2 Av.2 % Min: 93 % Max: 95 % Supplemental O2: Physical Exam Patient is alert, awake, oriented x 3 No pallor, Icterus No JVD Heart S1 S2 No murmurs Lungs clear to auscultation Abdomen soft non distended no organomegaly No pedal edema Medications: Scheduled PRN cyanocobalamin, 1,000 mcg, IntraMUSCular, q30 days metoprolol tartrate, 25 mg, Oral, BID potassium chloride, 40 mEq, IntraVENous, Once PRN medications: acetaminophen OR acetaminophen, ondansetron ODT OR ondansetron, polyethylene glycol (PEG) 3350 Continuous lactated Ringer's, 75 mL/hr, Last Rate: 75 mL/hr (10/28/23 1735) Assessment Acute, acute on chronic, unstable/uncontrolled chronic problems/diagnoses: Mild acute pancreatitis Elevated LFTs Stable chronic problems affecting care, new non-acute diagnoses: Paroxysmal A-fib History of gastric bypass Plan As a result of the above findings & factors, the following mgmt was pursued: -Appreciate GI recommendations, n.p.o., IV fluids, plan for MRCP today -Continue metoprolol, patient not on any anticoagulation, per cardiology outpatient note patient supposed to take flecainide on as needed basis for A-fib -LFTs improving, general surgeon on board plan for UGI. - am labs, replace lytes prn - PT/OT/CM/SW -SCDs Advance Directive: Full Code Anticipated Discharge - Date -10/31/2023 - Location -Home - Pending the following -clinical improvement Total time spent (which include face to face and non face to face encounters) : 50 minutes minutes Extended Emergency Contact Information Primary Emergency Contact: Dano Orellana [facility] Mobile Relation: Partner Secondary Emergency Contact: KristenAliyah Mobile Relation: Mother Ashely Ochoa MD Division of Hospitalist Medicine [facility] documented in this [facility]09-09-2024 Plan of care note* Care Plan - Lindsay Emerson RN - 11/01/2023 6:51 AM EDT Problem: Knowledge Deficit Goal: Patient/family/caregiver demonstrates understanding of disease process, treatment plan, medications, and discharge instructions Outcome: Progressing Problem: Potential for Compromised Skin Integrity Goal: Skin Integrity is Maintained or Improved Outcome: Progressing Goal: Nutritional status is improving Outcome: Progressing Problem: Urinary Incontinence Goal: Perineal skin integrity is maintained or improved Outcome: Progressing [id number] NoteMarked diffuse hepatic steatosis. Hepatosplenomegaly, progressed since prior. Subtle edema within and adjacent to the head and uncinate process of the pancreas, suspicious for mild acute edematous pancreatitis. Correlate with laboratory values. New moderate periportal edema. Periportal and gastrohepatic ligament lymphadenopathy, progressed since prior. Report Dictated on Electronically Signed By: Karlene Acosta MD Electronically Signed Date/Time: 10/31/2023 5:31 PM EDT [facility] EMERGENCY DEPARTMENT RADIOLOGY [id number] Note. MICRO - Microbiology PROCEDURE: Blood Culture (bacterial) [*1] SOURCE: Blood BODY SITE: COLLECTED DATE/TIME: 10/25/2023 16:37 EDT RECEIVED DATE/TIME: 10/26/2023 16:26 EDT START DATE/TIME: 10/26/2023 16:26 EDT FREE TEXT SOURCE: FINAL REPORTS Final Report [] Verified Date/Time/Personnel: 10/31/2023 16:59 EDT Blood Culture: No Growth at 5 days. PRELIMINARY REPORTS Preliminary Report [] Verified Date/Time/Personnel: 10/26/2023 16:59 EDT Culture has been received in lab and is no growth to date. Routine cultures are held for 5 days. Performing Locations *1: This test was performed at: [facility], [address] [place] [address], [facility] , [facility]09-08-2024 Note. MICRO - Microbiology PROCEDURE: Blood Culture (bacterial) [*1] SOURCE: Blood BODY SITE: COLLECTED DATE/TIME: 10/25/2023 15:45 EDT RECEIVED DATE/TIME: 10/26/2023 16:25 EDT START DATE/TIME: 10/26/2023 16:26 EDT FREE TEXT SOURCE: FINAL REPORTS Final Report [] Verified Date/Time/Personnel: 10/31/2023 16:59 EDT Blood Culture: No Growth at 5 days. PRELIMINARY REPORTS Preliminary Report [] Verified Date/Time/Personnel: 10/26/2023 16:59 EDT Culture has been received in lab and is no growth to date. Routine cultures are held for 5 days. Performing Locations *1: This test was performed at: [facility], [address] [place] [address], [id number] , [facility]09-08-2024 Plan of care note* Care Plan - Lindsay Emerson RN - 10/31/2023 6:38 AM EDT Problem: Knowledge Deficit Goal: Patient/family/caregiver demonstrates understanding of disease process, treatment plan, medications, and discharge instructions Outcome: Progressing Problem: Potential for Compromised Skin Integrity Goal: Skin Integrity is Maintained or Improved Outcome: Progressing Goal: Nutritional status is improving Outcome: Progressing Problem: Urinary Incontinence Goal: Perineal skin integrity is maintained or improved Outcome: Progressing The patient is Moderately Stable - Low risk of patient condition declining or worsening The patient's goals for the shift include to get some rest The clinical goals for the shift include maintain nausea control [facility] [id number] Note* Care Coordination - Carmen Purdy MD - 10/30/2023 8:29 AM EDT MRCP reviewed, CBD looks normal. Will await the official read. [facility] [id number] Note* Care Coordination - Carmen Purdy MD - 10/30/2023 8:29 AM EDT MRCP reviewed, CBD looks normal. Will await the official read. [facility] [id number] Note. MICRO - Microbiology PROCEDURE: Blood Culture (bacterial) [*1] SOURCE: Blood BODY SITE: COLLECTED DATE/TIME: 10/24/2023 09:38 EDT RECEIVED DATE/TIME: 10/24/2023 18:05 EDT START DATE/TIME: 10/24/2023 18:05 EDT FREE TEXT SOURCE: FINAL REPORTS Final Report [] Verified Date/Time/Personnel: 10/29/2023 19:00 EDT Blood Culture: No Growth at 5 days. PRELIMINARY REPORTS Preliminary Report [] Verified Date/Time/Personnel: 10/24/2023 18:59 EDT Culture has been received in lab and is no growth to date. Routine cultures are held for 5 days. Performing Locations *1: This test was performed at: [facility], [address] [place] [address], [id number] , [facility] [id number] Note* Care Coordination - Nancy Vega RN - 10/29/2023 12:34 PM EDT Care Managment Initial Assessment Date: 10/29/2023 Patient Name: Anne Marie Peterson : 1995 Patient Information Source of Information: Patient Cognition/Language: WFL - Within Functional Limits Permission given to speak with patient customer care representative/caregiver as indicated: No Confirmation of Payer with patient/family: Yes Payer Name: [facility] : No Confirmation of Primary Care Physician: Confirmed PCP Name: DR LANE Seen in last 2 years?: Yes Primary Caregiver: Self If assistance needed, confirmed caregiver ready, willing and able to care for patient at discharge:Yes Confirmed with: Living Arrangements Current Residence: House Number of Floors 2 Number of Entry Steps: 1 Bed/Bath Levels: Facility: Facility Name: Plan to Return: Lives with: Children Support Systems: Spouse/significant other, Parent Activities of Daily Living Ambulation: Independent Bathing/Dressing: Independent Elimination/Continence/Toileting: Independent Feeding: Independent Who Assists with Activities of Daily Living: Instrumental Activities of Daily Living Prescription Coverage: Yes Pharmacy Used: Medication Management: Independent Transportation/Shopping: Independent Transportation Mode: Car Needs Assistance with Transportation at Discharge: No Meal Preparation: Independent Laundry/Cleaning: Independent Finances/Bill Paying: Independent Communication: Independent Types of Care Services/Equipment Utilized Care Services: (NA) Dialysis Type: NA Durable Medical Equipment: Cane Patient's Goal/Discharge Plan Patient expects to be discharged to: HOME Discharge Planning Actions: Continue to follow Patient's Choice Rights and [employer] and Collaborative Relationships Disclosed as Indicated for Post-Acute Care: Interdisciplinary Team Engagement: Social Work Referral for: Additional Information: SPOKE WITH PT, INTRODUCED SELF AND EXPLAINED ROLE. PT HERE WITH TRANSAMINITIS, HX RECENT GASTRIC BYPASS. CURRENTLY ON IV FLUIDS, NPO. MRI PENDING. GEN SURG AND GI FOLLOWING. ANTICIPATE DISCHARGE TO HOME, WILL CONTINUE TO FOLLOW. Nancy Vega RN [employer] [id number] Note* Care Coordination - Nancy Vega RN - 10/29/2023 12:34 PM EDT Care Managment Initial Assessment Date: 10/29/2023 Patient Name: Anne Marie Peterson : 1995 Patient Information Source of Information: Patient Cognition/Language: WFL - Within Functional Limits Permission given to speak with patient customer care representative/caregiver as indicated: No Confirmation of Payer with patient/family: Yes Payer Name: [facility] : No Confirmation of Primary Care Physician: Confirmed PCP Name: DR LANE Seen in last 2 years?: Yes Primary Caregiver: Self If assistance needed, confirmed caregiver ready, willing and able to care for patient at discharge:Yes Confirmed with: Living Arrangements Current Residence: House Number of Floors 2 Number of Entry Steps: 1 Bed/Bath Levels: Facility: Facility Name: Plan to Return: Lives with: Children Support Systems: Spouse/significant other, Parent Activities of Daily Living Ambulation: Independent Bathing/Dressing: Independent Elimination/Continence/Toileting: Independent Feeding: Independent Who Assists with Activities of Daily Living: Instrumental Activities of Daily Living Prescription Coverage: Yes Pharmacy Used: Medication Management: Independent Transportation/Shopping: Independent Transportation Mode: Car Needs Assistance with Transportation at Discharge: No Meal Preparation: Independent Laundry/Cleaning: Independent Finances/Bill Paying: Independent Communication: Independent Types of Care Services/Equipment Utilized Care Services: (NA) Dialysis Type: NA Durable Medical Equipment: Cane Patient's Goal/Discharge Plan Patient expects to be discharged to: HOME Discharge Planning Actions: Continue to follow Patient's Choice Rights and [employer] and Collaborative Relationships Disclosed as Indicated for Post-Acute Care: Interdisciplinary Team Engagement: Social Work Referral for: Additional Information: SPOKE WITH PT, INTRODUCED SELF AND EXPLAINED ROLE. PT HERE WITH TRANSAMINITIS, HX RECENT GASTRIC BYPASS. CURRENTLY ON IV FLUIDS, NPO. MRI PENDING. GEN SURG AND GI FOLLOWING. ANTICIPATE DISCHARGE TO HOME, WILL CONTINUE TO FOLLOW. Nancy Vega RN [facility] [id number] Consult note* Lencho Mathews MD - 10/29/2023 8:19 AM EDTAssociated Order(s): IP CONSULT TO PROCEDURE TEAM Images from the original note were not included. Department of Internal Medicine Gastroenterology Attending Consult Note Reason for Consult: The patient was seen in consultation at the request of Dr. Manuel Villarreal re: elevated LFT and possible MRCP/ERCP. CHIEF COMPLAINT: nausea, anorexia, malaise History Obtained From: patient and EMR HISTORY OF PRESENT ILLNESS: The patient is a 28 y.o. female with significant past medical history of anemia, atrial fibrillation, Listerman expressive disorder, sleep apnea, and s/p cholecystectomy (15 yrs ago), s/p Sandra-en-Y gastric bypass (April 2023) for morbid obesity who presents with nausea, malaise, and loss of appetite. The patient recounted the story in room. Since 10/19, patient has experienced intermittent fevers associated with poor appetite and subjective jaundice (feels she is a bit yellow) but denies feelingsick symptoms. Her last fever was 2 days ago. Patient took 500 mg Tylenol q4h when experiencing breakouts. She went to [facility] on 10/25 for nausea and general malaise. Managed as a possible case of acute pancreatitis, advised MRCP and IgG4 testing but after 24 hours, patient had to leave AMA dueto family matters. At home, she continued to feel nauseous, and was instructed to return to the ED by an on-call nurse via telephone due to elevated liver enzymes. Currently, patient is resting comfortably and is hemodynamically stable. She is not experiencing any fever or nausea at the moment. Patient has a poor appetite and has not eaten anything since last Wednesday (10/19). Patient said she noticed slight jaundice last week, but has not noticed any skin discoloration since. She has not had a bowel movement in over a week. Patient says that she feels similar to a previous episode of acute pancreatitis after bypass surgery. Labs are ALP 597, Albumin 2.8, AST 377, ALT 229, Bilirubin 3.6. Hb 11.0/Hematocrit 34.0 Hep B/C panels negative, Acetaminophen <10, [place] test negative. Lipase normal (135). She reports of no intake of drug supplements use or dietary risk factors (e.g. mushroom ingestion) as cause of hepatotoxicity. Allergies: Nsaids Current Medications: Current Facility-Administered Medications: acetaminophen (Tylenol) tablet 650 mg, 650 mg, Oral, q6h PRN OR acetaminophen (Tylenol) suppository 650 mg, 650 mg, Rectal, q6h PRN, Maunel Villarreal MD lactated Ringer's infusion, 75 mL/hr, IntraVENous, Continuous, Manuel Villarreal MD, Last Rate: 75 mL/hr at 10/28/23 1735, 75 mL/hr at 10/28/23 1735 metoprolol tartrate (Lopressor) tablet 25 mg, 25 mg, Oral, BID, Manuel Villarreal MD, 25 mg at 10/29/23 0745 ondansetron ODT (Zofran-ODT) disintegrating tablet 4 mg, 4 mg, Oral, q8h PRN OR ondansetron (Zofran) injection 4 mg, 4 mg, IntraVENous, q6h PRN, Manuel Villarreal MD polyethylene glycol (PEG) 3350 (Miralax) packet 17 g, 17 g, Oral, Daily PRN, Manuel Villarreal MD Past Medical History: Active Ambulatory Problems Diagnosis Date Noted Prediabetes 09/10/2022 Daytime sleepiness 09/10/2022 Back pain 09/10/2022 Atrial fibrillation with RVR (HCC) 01/08/2023 Mixed hyperlipidemia 01/08/2023 MOE on CPAP 01/08/2023 Chronic superficial gastritis without bleeding 01/10/2023 Hypertension 04/08/2023 Morbid obesity with BMI of 60.0-69.9, adult (HCC) 04/08/2023 Hepatic steatosis 04/08/2023 History of motion sickness 05/03/2023 Difficult intravenous access 05/03/2023 Dizziness 05/19/2023 Painless pancreatitis 06/03/2023 Acute pancreatitis, unspecified complication status, unspecified pancreatitis type 06/06/2023 Severe malnutrition (CMS/HCC) (HCC) 06/07/2023 Hypokalemia 06/09/2023 History of gastric bypass 06/09/2023 Deficiency of multiple nutrient elements 06/17/2023 Intestinal malabsorption 06/17/2023 Transaminitis 10/27/2023 Resolved Ambulatory Problems Diagnosis Date Noted No Resolved Ambulatory Problems Past Medical History: Diagnosis Date Anemia Atrial fibrillation (HCC) COVID-19 vaccine series completed 10/2020 SANTOS (dyspnea on exertion) Fatigue History of kidney stones History of UTI Incontinence Joint pain, knee PTSD (post-traumatic stress disorder) Sleep apnea, obstructive Past Surgical History: Social History Socioeconomic History Marital status: Significant Other Spouse name: Not on file Number of children: Not on file Years of education: Not on file Highest education level: Not on file Occupational History Not on file Tobacco Use Smoking status: Never Smokeless tobacco: Never Vaping Use Vaping status: Never Used Substance and Sexual Activity Alcohol use: Not Currently Drug use: Never Sexual activity: Yes Partners: Male control/protection: I.U.D. Other Topics Concern Not on file Social History Narrative Not on file Social Determinants of Health Financial Resource Strain: Low Risk (10/28/2023) Overall Financial Resource Strain (CARDIA) Difficulty of Paying Living Expenses: Not hard at all Food Insecurity: No Food Insecurity (10/28/2023) Hunger Vital Sign Worried About Running Out of Food in the Last Year: Never true Ran Out of Food in the Last Year: Never true Transportation Needs: No Transportation Needs (10/28/2023) PRAPARE - Transportation Lack of Transportation (Medical): No Lack of Transportation (Non-Medical): No Physical Activity: Sufficiently Active (10/28/2023) Exercise Vital Sign Days of Exercise per Week: 3 days Minutes of Exercise per Session: 60 min Stress: No Stress Concern Present (10/28/2023) [employer] - Occupational Stress Questionnaire Feeling of Stress : Not at all Social Connections: Socially Integrated (10/28/2023) Social Connection and Isolation Panel [NHANES] Frequency of Communication with Friends and Family: More than three times a week Frequency of Social Gatherings with Friends and Family: Once a week Attends Mormonism Services: More than 4 times per year Active Member of Clubs or Organizations: Yes Attends Club or Organization Meetings: More than 4 times per year Marital Status: Living with partner Intimate Partner Violence: Not At Risk (10/28/2023) Humiliation, Afraid, Rape, and Kick questionnaire Fear of Current or Ex-Partner: No Emotionally Abused: No Physically Abused: No Sexually Abused: No Housing Stability: Low Risk (10/28/2023) Housing Stability Vital Sign Unable to Pay for Housing in the Last Year: No Number of Times Moved in the Last Year: 1 Homeless in the Last Year: No Family History: Family History Problem Relation Name Age of Onset Cancer Mother Hypertension Mother Obesity Mother Heart disease Father Obesity Father Cancer Maternal Grandmother Heart disease Maternal Grandmother Stroke Maternal Grandfather Hypertension Maternal Grandfather Heart disease Maternal Grandfather Diabetes Maternal Grandfather Obesity Maternal Grandfather Anesthesia problems Maternal Grandfather No family history colon or stomach cancer. Social History: TOBACCO: reports that she has never smoked. She has never used smokeless tobacco. ETOH: reports that she does not currently use alcohol. DRUGS: reports no history of drug use. 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 Decreased appetite, weight loss 2/2 to gastric bypass surgery. No PLATT, visual disturbance, eye pain, jaundice, sore throat or mouth ulcers. No skin rash or itching. No CP,SOB, SANTOS, cough or wheeze. No urinary frequency, urgency, hematuria, or dysuria. No myalgia, arthralgia, or joint swelling. No weakness, numbness, or confusion. GI per HPI. No polyuria, polydipsia, heat or cold intolerance. PHYSICAL EXAM: VS: BP 118/71 (BP Location: Left arm, Patient Position: Sitting) Pulse 82 Temp 36.6 C (97.8 F) (Temporal) Resp 20 Ht 5' 6 (1.676 m) Wt (!) 305 lb (138 kg) LMP 10/28/2023 (Exact Date) SpO2 93% BMI 49.23 kg/m Body mass index is 49.23 kg/m . Constitutional: No acute distress. Well-nourished. Well hydrated Head/Eyes: Pupils are equal and round; Conjunctiva are not injected; Sclera are yellow-tinged. ENT: Ears/nose without external abnormalities. Oral mucosa is pink and moist. Neck: No JVD. No carotid bruits; No thyromegaly. Respiratory: Clear to auscultation bilaterally without any added sounds. Effort is normal Heart: Regular, Normal S1 and S2. No murmur; No added sounds. Abdomen: Normal BS, soft, non-tender, non-distended; no hepatomegaly. Extremities/Skin: No LE edema; Skin warm to touch and well perfused. Musculoskeletal: Head - normocephalic. Neck - supple Psychiatric: AAO x 3, answers appropriately, normal mood, normal affect. No asterixis. Non-focal. DATA: Recent blood work and relevant radiologic and endoscopic studies were reviewed and discussed with the patient. CBC: Recent Labs 10/27/23 0547 10/28/23 0946 10/29/23 0130 WBC 7.3 10.0 7.5 RBC 4.90 5.46* 4.87 HGB 11.2* 12.3 11.0* HCT 35.4 37.9 34.0* MCV 72.2* 69.4* 69.8* MCH 22.9* 22.5* 22.6* MCHC 31.6 32.5 32.4 RDW 17.9* 18.3* 18.3* PLT 169 191 153 CMP: Recent Labs 10/27/23 0547 10/28/23 0946 10/29/23 0130 NA 136 134* 134* K 3.3* 3.5 3.3* CL 101 100 101 CO2 23 23 23 BUN 5* 5* 5* CREATININE 0.65 0.58 0.54 GLUCOSE 73 87 77 CALCIUM 8.3* 8.4 8.2* PROT 6.4 7.5 6.2* BILITOT 3.0* 4.0* 3.6* ALKPHOS 566* 707* 597* AST 374* 475* 377* ALT 256* 280* 229* PT/INR: No results for input(s): INR in the last 72 hours. Lipase 135 < [address] abdomen/pelvis w/ contrast (outside facility, 10/24) - Mild pancreatic fat stranding at head Endoscopic Review Endoscopy 01/12/2023 IMPRESSION/RECOMMENDATIONS: consider primary biliary/bile duct stone vs autoimmune related processes (autoimmune hepatitis, PBC, PSC, Blayne's) Acute pancreatitis, less likely s/p endoscopic Sandra-en-Y bypass surgery with liver wedge resection (05/10/23) s/p cholecystectomy - increased liver function enzymes, intermittent fevers - ALP 597, Albumin 2.8, AST 377, ALT 229, Bilirubin 3.6 - denies epigastric pain, normal lipase levels - Does not meet 2/3 criteria for acute pancreatitis - loss of appetite for over one week - suspect intermittent gallstones, possible hx of intermittent cholangitis Plan: - for MRCP - will follow results - auto-immune work-up ordered (anti-LKM, hep B core antibody, ferritin, cerulopasmin, anti-SMA, AMA, DANGELO, [id number]) - continue LR 75 ml/hr - presently on NPO for procedure (MRCP), suggest diet progression as tolerated post procedure - Monitor/trend LFT - Zofran PRN for nausea - Monitor vitals; Daily labs, replenish electrolytes PRN Patient independently examined and evaluated by resident physician. Agree with above history, physical examination, assessment, and plan with changes/additions made through out. Associated attestation - Carmen Purdy MD - 10/30/2023 7:54 AM EDT Attending Supervising Physician s Attestation Statement I have personally performed and participated in all the above services (including HPI and PE). I have reviewed the case with Advance Practice Provider (MARY)/ resident / student, and agreed with the MARY's / resident / student assessment and plan as above. I have following additions or modifications:Seen on 10-29-23 I did substantive portion of medical decision making. Imaging was done at OSH, patient showed me results on phone which shows mild penny pancreatic stranding at head of pancreas. She had negative MRCP after lap gerardo when she had pancreatitis in 06-15. Doubt she has a stone , agree with imaging with MRCP. Will check for autoimmune hepatitis and other testing to rule out other causes of elevated LFTs. Can have diet after MRCP. Liver biopsy earlier this year showed steatosis. Add total IgG levels, CMV, EBV, HSV serologies. Acute hep panel negative. Unable to EUS given gastric by pass anatomy. Check IgG4 for recurrent acute pancreatitis. Denies EToH Will follow. Rajwinder WALLS Gastroenterology [facility] [employer] Work Phone: [phone]) 589-372109-06-2024 Telephone encounter Note* Telephone Encounter - Miley Moise PA-C - 10/29/2023 8:10 AM EDT Noted, thanks [facility] [id number] Miscellaneous Notes* Telephone Encounter - Miley Moise PA-C - 10/29/2023 8:10 AM EDT Noted, thanks * Telephone Encounter - Zully Anton RN - 10/29/2023 7:52 AM EDT JZ LRYGB 10/28/23 Patient presented to ED on 10/28/23 with nausea, weakness and dizziness. Of note, patient was seen inED on 10/26/23 with plan for admission related to abdominal pain, fever, and anorexia with CT showingpancreatitis but left AMA for reported child day care provider concerns. Patient is currently admitted. Will continue to monitor. * Telephone Encounter - Zully Anton RN - 10/28/2023 8:47 AM EDT Noted, thank you. * Telephone Encounter - Balwinder Weeks RN - 10/28/2023 8:30 AM EDT After review by MZ, pt should return to ER. Call to pt and she is on her way to the ER. States she does live 1.5 hrs away. Will route to [facility] as FYI. * Telephone Encounter - Balwinder Weeks RN - 10/28/2023 8:12 AM EDT DOS 05/10/23 LRYGB JZ Last OV-08/11/23 with MZ, next 11/15/23 with MZ Pt was seen in ER on 10/26/23 and was to be admitted with transaminitis. Will send to MZ for review. * Telephone Encounter - Jolly Dodd RN - 10/28/2023 6:51 AM EDT S: Patient spoke with [facility] nurse regarding pancreatitis. B: Onset of symptoms 10/20/23. ER 10/26/23. [place] [facility] 05/10/23. A: In the ER and they wanted to admit her and discharged self d/t child day care provider and for pancreatitis and possible liver obstructions. Not feeling any better, last ate 8 days ago and having trouble getting fluids in, taking Zofran. Having no abd pain No vomiting, had dry heaves this am, nauseam trying to get fluids in, not doing well with getting fluids in, has not eaten in 8 days ,mouth is very dry, urinating dark to brown in color. R: Instructed to go back to ER for eval. Patient understands care advice. No further needs at this time. Patient instructed to call back with new or worsening symptoms. Reason for Disposition [1] Drinking very little AND [2] dehydration suspected (e.g., no urine > 12 hours, very dry mouth, very lightheaded) Protocols used: [id number] documented in this [facility]09-06-2024 Telephone encounter Note* Telephone Encounter - Zully Anton RN - 10/29/2023 7:52 AM EDT JZ LRYGB 10/28/23 Patient presented to ED on 10/28/23 with nausea, weakness and dizziness. Of note, patient was seen inED on 10/26/23 with plan for admission related to abdominal pain, fever, and anorexia with CT showingpancreatitis but left AMA for reported child day care provider concerns. Patient is currently admitted. Will continue to monitor. [facility] [id number] Consult note* Julio Real MD - 10/29/2023 7:13 AM EDTAssociated Order(s): IP CONSULT TO GENERAL SURGERY GENERAL SURGERY CONSULT PATIENT: Anne Marie Peterson DATE OF : 1995 ATTENDING PHYSICIAN: Manuel Villarreal MD ADMIT DATE: 10/28/2023 TODAY'S DATE: 10/29/2023 CHIEF COMPLAINT LFT Abnormalities, Vomiting HISTORY OF PRESENT ILLNESS Anne Marie Peterson is a 28 y.o. female who presents with abdominal pain, nausea, and abnormal LFTs. The patients reports that she has not been feeling well since last Wednesday. She reports a low grade fever, nausea, and lack of appetite. She underwent laparoscopic gastric bypass in April 2023 and hadan admission related to pancreatitis postoperatively. She underwent extensive workup at this time including RUQ US, MRI, CT abdomen and UGI at that time which did not demonstrate any acute pathology. REVIEW OF SYSTEMS: Constitutional: negative for chills, fevers and weight loss Eyes: negative for visual disturbance Ears, nose, mouth, throat, and face: negative for hearing loss, hoarseness and nasal congestion Respiratory: negative for cough, shortness of breath and wheezing Cardiovascular: negative for chest pressure/discomfort and palpitations Gastrointestinal: negative Genitourinary:negative for dysuria and hematuria Hematologic/lymphatic: negative for easy bruising and lymphadenopathy Musculoskeletal:negative for arthralgias, muscle weakness and myalgias Neurological: negative for coordination problems, dizziness, gait problems and headaches Behavioral/Psych: negative for irritability and mood swings Endocrine: negative for temperature intolerance PAST HISTORIES Past Medical History: Past Medical History: Diagnosis Date Anemia Atrial fibrillation (HCC) 2 episodes Back pain COVID-19 vaccine series completed 10/2020 Daytime sleepiness 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 Memo Duke / Ernst Olson - inguinal hernia LAP GASTRIC BYPASS/SANDRA-EN-Y (HISTORICAL) 05/10/2023 LRYGB - Dr. Campbell LAP,CHOLECYSTECTOMY (HISTORICAL) 2009 Dr. Memo Duke / Ernst Chavez [facility] UPPER GASTROINTESTINAL ENDOSCOPY Current Medications: @[email or web address]@ Allergies: Nsaids Social History: Social History Socioeconomic History Marital status: Significant Other Spouse name: Not on file Number of children: Not on file Years of education: Not on file Highest education level: Not on file Occupational History Not on file Tobacco Use Smoking status: Never Smokeless tobacco: Never Vaping Use Vaping status: Never Used Substance and Sexual Activity Alcohol use: Not Currently Drug use: Never Sexual activity: Yes Partners: Male control/protection: I.U.D. Other Topics Concern Not on file Social History Narrative Not on file Social Determinants of Health Financial Resource Strain: Low Risk (10/28/2023) Overall Financial Resource Strain (CARDIA) Difficulty of Paying Living Expenses: Not hard at all Food Insecurity: No Food Insecurity (10/28/2023) Hunger Vital Sign Worried About Running Out of Food in the Last Year: Never true Ran Out of Food in the Last Year: Never true Transportation Needs: No Transportation Needs (10/28/2023) PRAPARE - Transportation Lack of Transportation (Medical): No Lack of Transportation (Non-Medical): No Physical Activity: Sufficiently Active (10/28/2023) Exercise Vital Sign Days of Exercise per Week: 3 days Minutes of Exercise per Session: 60 min Stress: No Stress Concern Present (10/28/2023) [employer] - Occupational Stress Questionnaire Feeling of Stress : Not at all Social Connections: Socially Integrated (10/28/2023) Social Connection and Isolation Panel [NHANES] Frequency of Communication with Friends and Family: More than three times a week Frequency of Social Gatherings with Friends and Family: Once a week Attends Mormonism Services: More than 4 times per year Active Member of Clubs or Organizations: Yes Attends Club or Organization Meetings: More than 4 times per year Marital Status: Living with partner Intimate Partner Violence: Not At Risk (10/28/2023) Humiliation, Afraid, Rape, and Kick questionnaire Fear of Current or Ex-Partner: No Emotionally Abused: No Physically Abused: No Sexually Abused: No Housing Stability: Low Risk (10/28/2023) Housing Stability Vital Sign Unable to Pay for Housing in the Last Year: No Number of Times Moved in the Last Year: 1 Homeless in the Last Year: No Family History: Family History Problem Relation Name Age of Onset Cancer Mother Hypertension Mother Obesity Mother Heart disease Father Obesity Father Cancer Maternal Grandmother Heart disease Maternal Grandmother Stroke Maternal Grandfather Hypertension Maternal Grandfather Heart disease Maternal Grandfather Diabetes Maternal Grandfather Obesity Maternal Grandfather Anesthesia problems Maternal Grandfather PHYSICAL EXAMINATION VITALS: BP 118/71 (BP Location: Left arm, Patient Position: Sitting) Pulse 82 Temp 36.6 C (97.8F) (Temporal) Resp 20 Ht 5' 6 (1.676 m) Wt (!) 305 lb (138 kg) LMP 10/28/2023 (Exact Date) SpO2 93% BMI 49.23 kg/m Height: @FLOWAMB(11)@; Weight @FLOWAMB(14)@; BMI of Body mass index is 49.23 kg/m .. GENERAL: NAD, resting in bed, no acute distress HEENT: PHI, EOMI, no scleral icterus CARDIO: Regular rate and rhythm PULMONARY: Normal respiratory effort, no respiratory distress, no stridor, chest non-tender ABDOMEN: Soft, non-distended. Slight epigastric TTP. No rebound, no pulsatile abdominal mass, previous incisions consistent with reported surgical history.no hernias present , EXTREMITIES: Skin warm and well perfused, no cyanosis atraumatic NEURO: No focal neuro defectis, motor and sensation grossly intact IMAGING STUDIES AND LABWORK Recent Labs 10/27/23 0547 10/28/23 0946 10/29/23 0130 NA 136 134* 134* K 3.3* 3.5 3.3* CL 101 100 101 CO2 23 23 23 BUN 5* 5* 5* CREATININE 0.65 0.58 0.54 GLUCOSE 73 87 77 CALCIUM 8.3* 8.4 8.2* Recent Labs 10/27/23 0547 10/28/23 0946 10/29/23 0130 WBC 7.3 10.0 7.5 RBC 4.90 5.46* 4.87 HGB 11.2* 12.3 11.0* HCT 35.4 37.9 34.0* MCV 72.2* 69.4* 69.8* MCH 22.9* 22.5* 22.6* MCHC 31.6 32.5 32.4 RDW 17.9* 18.3* 18.3* PLT 169 191 153 Recent Labs 10/28/23 0946 10/29/23 0130 ALKPHOS 707* 597* ALT 280* 229* AST 475* 377* PROT 7.5 6.2* BILITOT 4.0* 3.6* BILIDIR 1.6* -- LIPASE 135 -- IMAGING STUDIES: ASSESSMENT Anne Marie Peterson is a 28 y.o. female presenting with abnormal LFTs and nausea. She has a history of gastric bypass in April 2023, and had an admission for pancreatitis postoperatively. PLAN AND RECOMMENDATIONS Agree with plan for MRI Recommend UGI Surgery will continue to follow Thank you for the opportunity to participate in the care of this patient. Plan of care discussed with Dr. Campbell Associated attestation - Memo Campbell MD - 10/29/2023 1:08 PM EDT Images from the original note were not included. [facility] - Surgery [facility] Physicians Surgery Patient Name: Anne Marie Peterson Date: 10/29/23 Seen and examined. Sitting on the end of the bed, pain-free. States that she felt great last week, tolerating diet before she went to [place]. Imaging including May MRI reviewed as well as imaging and labs from [place] admission. Total and direct bilirubin elevated. MRCP pending. BP 118/71 (BP Location: Left arm, Patient Position: Sitting) Pulse 82 Temp 36.6 C (97.8 F) (Temporal) Resp 20 Ht 5' 6 (1.676 m) Wt (!) 305 lb (138 kg) LMP 10/28/2023 (Exact Date) SpO2 93% BMI 49.23 kg/m CBC: Recent Labs 10/27/23 0547 10/28/23 0946 10/29/23 0130 WBC 7.3 10.0 7.5 HGB 11.2* 12.3 11.0* HCT 35.4 37.9 34.0* PLT 169 191 153 BMP: Recent Labs 10/27/23 0547 10/28/23 0946 10/29/23 0130 NA 136 134* 134* K 3.3* 3.5 3.3* CL 101 100 101 CO2 23 23 23 BUN 5* 5* 5* CREATININE 0.65 0.58 0.54 GLUCOSE 73 87 77 Hepatic: Recent Labs 10/26/232 10/27/2347 10/28/23 0946 10/29/23 0130 ALKPHOS 595* 566* 707* 597* ALT 274* 256* 280* 229* AST 432* 374* 475* 377* PROT 7.2 6.4 7.5 6.2* BILITOT 3.2* 3.0* 4.0* 3.6* BILIDIR 1.2* -- 1.6* -- Abdomen: Soft, nontender, nondistended. Plan: Elevated LFTs including total and direct bilirubin Check MRI/MRCP, history of cholecystectomy 15 years ago at age 14 Patient has a history of gastric bypass -will check labs, including B vitamins and zinc. Labs from 08/15 reviewed VTE prophylaxis Morbid obesity, BMI 49.23 kg/m I personally supervised my Resident/Surgical Fellow in the evaluation and management of Anne Marie Peterson in the development of a treatment plan for this patient. I personally interviewed the patient and performed an individual physical examination. In addition, I discussed the patient's condition and treatment options with them. I have also reviewed and agree with the past medical, family and social history and care plan unless otherwise noted. All of the patient's questions were answered. Total time of 55 minutes spent reviewing the patient's chart, associated and relevant data including labs and imaging as well as discussing/counseling the patient regarding the care plan for this patient. The patient was seen and examined independently and relevant data reviewed by myself. A full chart review was performed. [place] [id number] Plan of care note* Care Plan - Oscar Estrada RN - 10/28/2023 9:52 PM EDT Problem: Knowledge Deficit Goal: Patient/family/caregiver demonstrates understanding of disease process, treatment plan, medications, and discharge instructions Outcome: Progressing Problem: Potential for Compromised Skin Integrity Goal: Skin Integrity is Maintained or Improved Outcome: Progressing The patient is Moderately Stable - Low risk of patient condition declining or worsening The patient's goals for the shift include to get some rest The clinical goals for the shift include maintain nausea control [id number] Emergency department Note* Danyelle Irby RN - 10/28/2023 6:33 PM EDT Pt refusing gown at this time stating that she would like to stay in her own clothes, pt denies further needs at this time and is resting comfortably in bed. Will continue to monitor. Danyelle Irby RN 10/28/231833 [facility] [id number] Emergency department Note* Danyelle Irby RN - 10/28/2023 6:33 PM EDT Pt refusing gown at this time stating that she would like to stay in her own clothes, pt denies further needs at this time and is resting comfortably in bed. Will continue to monitor. Danyelle Irby RN 10/28/231833 * Johana Ratliff PA-C - 10/28/2023 9:21 AM EDT EMERGENCY DEPARTMENT ENCOUNTER Pt Name: Anne Marie Peterson Birthdate 1995 Date of evaluation: 10/28/2023 ED Provider: Johana Ratliff PA-C EDcare was supervised by Dr. Mcdonough who independently examined and evaluated the patient. Pleasesee their attestation note for further details. CHIEF COMPLAINT Chief Complaint Patient presents with Nausea Pt c/o of nausea, weakness and dizziness. 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 Pt states at triage window. I'm pretty sure I'm dehydrated. HISTORY OF PRESENT ILLNESS (Location/Symptom, Timing/Onset, Context/Setting, Quality, Duration, Modifying Factors, Severity) Note limiting factors. I wore appropriate PPE for the entirety of this encounter. HPI Anne Marie Peterson is a 28 y.o. female with past medical history significant for gastric bypass, A-fib, nutrient deficiency, kidney stones, UTIs, intestinal malabsorption, pancreatitis who presents to the emergency department with chief complaint of epigastric pain, nausea, vomiting. Patient reports has been feeling unwell for quite some time now. She was admitted at [facility] last week for mild pancreatitis, she had elevated liver enzymes, and positive blood cultures. She had to check out AMA due to childcare concerns, but since leaving the hospital yesterday she has continued to have epigastric pain, nausea, anorexia. Patient denies fevers, chills, jaundice. She states that since her symptoms have not improved she came back to the hospital in hopes to continue the course that was previously recommended. She statesher pain is not worse, but she has not been able to tolerate any p.o. intake. Nursing Notes were reviewed. 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 Memo [facility] / [facility] - inguinal hernia LAP GASTRIC BYPASS/SANDRA-EN-Y (HISTORICAL) 05/10/2023 [facility] - Dr. Campbell LAP,CHOLECYSTECTOMY (HISTORICAL) 2009 Dr. Memo [facility] / [facility] UPPER GASTROINTESTINAL ENDOSCOPY CURRENT MEDICATIONS Previous Medications CALCIUM CITRATE 250 MG TABLET Take 2 tablets (500 mg) by mouth 3 times daily. Take 2 tablets by mouth three times daily. CYANOCOBALAMIN (VITAMIN B-12) [address] 1 Dose under the tongue daily. FERROUS SULFATE 325 (65 FE) MG TABLET Take 1 tablet (325 mg) by mouth 2 times daily. FLECAINIDE (TAMBOCOR) 50 MG TABLET Take 3 tablets (150 mg) by mouth Once as needed (Take 3 pills asneeded for episodes of atrial fibrillation). LEVONORGESTREL (MIKIE) 13.5 MG IUD by IntraUTERine route Once. MAGNESIUM 30 MG TABLET Take 30 mg by mouth 2 times daily. METOPROLOL TARTRATE (LOPRESSOR) 25 MG TABLET Take 1 tablet (25 mg) by mouth 2 times daily. OMEPRAZOLE (PRILOSEC) [address] CAPSULE Take 1 capsule (20 mg) by mouth daily. Do not crush or chew. PEDIATRIC MULTIVITAMINS-IRON (FLINTSTONES PLUS IRON PO) Take 2 tablets by mouth daily. RESPIRATORY THERAPY SUPPLIES (CARETOUCH 2 CPAP HOSE PRODUCE SHIPPER) MISC 10 cm h20 THIAMINE (VITAMIN B-1) 50 MG TABLET Take 1 tablet (50 mg) by mouth daily. Take 1 tablet by mouth daily. VITAMIN D, CHOLECALCIFEROL, PO Take 4,000 Int'l Units by mouth daily. ALLERGIES Nsaids FAMILY HISTORY Family History Problem Relation Name Age of Onset Cancer Mother Hypertension Mother Obesity Mother Heart disease Father Obesity Father Cancer Maternal Grandmother Heart disease Maternal Grandmother Stroke Maternal Grandfather Hypertension Maternal Grandfather Heart disease Maternal Grandfather Diabetes Maternal Grandfather Obesity Maternal Grandfather Anesthesia problems Maternal Grandfather SOCIAL HISTORY Social History Socioeconomic History Marital status: Significant Other Tobacco Use Smoking status: Never Smokeless tobacco: Never Vaping Use Vaping status: Never Used Substance and Sexual Activity Alcohol use: Not Currently Drug use: Never Sexual activity: Yes Partners: Male control/protection: I.U.D. Social Determinants of Health Financial Resource Strain: Low Risk (10/27/2023) Overall Financial Resource Strain (CARDIA) Difficulty of Paying Living Expenses: Not hard at all Food Insecurity: No Food Insecurity (10/27/2023) Hunger Vital Sign Worried About Running Out of Food in the Last Year: Never true Ran Out of Food in the Last Year: Never true Transportation Needs: No Transportation Needs (10/27/2023) PRAPARE - Transportation Lack of Transportation (Medical): No Lack of Transportation (Non-Medical): No Physical Activity: Sufficiently Active (10/27/2023) Exercise Vital Sign Days of Exercise per Week: 3 days Minutes of Exercise per Session: 60 min Stress: No Stress Concern Present (10/27/2023) [employer] - Occupational Stress Questionnaire Feeling of Stress : Not at all Social Connections: Socially Integrated (10/27/2023) Social Connection and Isolation Panel [NHANES] Frequency of Communication with Friends and Family: More than three times a week Frequency of Social Gatherings with Friends and Family: Once a week Attends [employer] Services: More than 4 times per year Active Member of Clubs or Organizations: Yes Attends Club or Organization Meetings: More than 4 times per year Marital Status: Living with partner Intimate Partner Violence: Not At Risk (10/27/2023) Humiliation, Afraid, Rape, and Kick questionnaire Fear of Current or Ex-Partner: No Emotionally Abused: No Physically Abused: No Sexually Abused: No Housing Stability: Low Risk (10/27/2023) Housing Stability Vital Sign Unable to Pay for Housing in the Last Year: No Number of Times Moved in the Last Year: 1 Homeless in the Last Year: No SCREENINGS PHYSICAL EXAM ED Triage Vitals [10/28/23 0925] Temp Heart Rate Resp BP 36.8 C (98.2 F) 109 16 137/89 SpO2 Temp Source Heart Rate Source Patient Position 95 % Temporal Monitor -- BP Location FiO2 (%) -- -- Physical Exam Vitals and nursing note reviewed. Constitutional: General: She is not in acute distress. Appearance: She is well-developed. She is obese. She is not ill-appearing or diaphoretic. HENT: Head: Normocephalic and atraumatic. Eyes: Conjunctiva/sclera: Conjunctivae normal. Cardiovascular: Rate and Rhythm: Normal rate and regular rhythm. Heart sounds: No murmur heard. Pulmonary: Effort: Pulmonary effort is normal. No respiratory distress. Breath sounds: Normal breath sounds. No wheezing. Abdominal: Palpations: Abdomen is soft. Tenderness: There is abdominal tenderness. There is no right CVA tenderness, left CVA tenderness orguarding. Comments: Mild epigastric tenderness on examination. Musculoskeletal: General: No swelling. Cervical back: Neck supple. Skin: General: Skin is warm and dry. Capillary Refill: Capillary refill takes less than 2 seconds. Coloration: Skin is pale. Neurological: General: No focal deficit present. Mental Status: She is alert and oriented to person, place, and time. Psychiatric: Mood and Affect: Mood normal. Behavior: Behavior normal. Thought Content: Thought content normal. Judgment: Judgment normal. DIAGNOSTIC RESULTS RADIOLOGY (Per Emergency Physician): Interpretation per the Radiologist below, if available at the time of this note: No orders to display LABS: Labs Reviewed CBC WITH AUTO DIFFERENTIAL - Abnormal Result Value Auto WBC 10.0 RBC 5.46 (*) Hemoglobin 12.3 Hematocrit 37.9 MCV 69.4 (*) MCH 22.5 (*) MCHC 32.5 RDW 18.3 (*) Platelets 191 MPV nRBC 0.0 IPF 6 BASIC METABOLIC PANEL - Abnormal SODIUM 134 (*) POTASSIUM 3.5 CHLORIDE 100 CARBON DIOXIDE 23 UREA NITROGEN 5 (*) CREATININE 0.58 GLUCOSE 87 CALCIUM 8.4 ANION GAP 11 eGFR >90.0 HEPATIC FUNCTION PANEL - Abnormal BILIRUBIN, TOTAL 4.0 (*) BILIRUBIN, DIRECT 1.6 (*) ALKALINE PHOSPHATASE 707 (*) AST (SGOT) 475 (*) ALT 280 (*) ALBUMIN 3.5 TOTAL PROTEIN 7.5 MANUAL DIFFERENTIAL - Abnormal Adjusted WBC 10.0 Neutrophils % 44 Bands % 21 (*) Lymphocytes % 26 Monocytes % 5 Basophils % 2 Metamyelocytes % 3 (*) Absolute Neutrophil Count 6.5 Segs Absolute 6.5 Bands Absolute 2.1 (*) Lymphocytes Absolute 2.6 Monocytes Absolute 0.5 Basophils Absolute 0.2 Metamyelocytes Absolute 0.3 (*) Anisocytosis Slight (*) Microcytes Slight (*) Hypochromia Slight (*) WBC Morphology Normal PLT Morphology Normal Total Counted 155 Neutrophils Manual 68 Lymphocytes Manual 40 Monocytes Manual 7 Basophils Manual 3 Bands Manual 33 Metamyelocytes Manual 4 Narrative: Few reactive lymphocytes LIPASE - Normal LIPASE 135 COMPLETE URINALYSIS WITH REFLEX TO CULTURE Narrative: The following orders were created for panel order Urinalysis complete with reflex to Culture. Procedure Abnormality Status --------- ------ Complete Urinalysis[[id number]] Please view results for these tests on the individual orders. COMPLETE URINALYSIS All other labs were within normal range or not returned as of this dictation. EMERGENCY DEPARTMENT COURSE and DIFFERENTIAL DIAGNOSIS/MDM: Vitals: Vitals: 10/28/23 0925 BP: 137/89 Pulse: 109 Resp: 16 Temp: 36.8 C (98.2 F) TempSrc: Temporal SpO2: 95% The patient presented with a chief complaint of nausea, vomiting, recently departed from [facility] AGAINST MEDICAL ADVICE while being treated for pancreatitis and transaminitis. She has had a prior cholecystectomy. The differential diagnosis associated with this patient's presentation includes transaminitis, pancreatitis, cholangitis, biliary stasis. Patient is alert, oriented, pleasant and interactive, in no apparent distress. Answers all questions appropriately. Vital signs are stable. Our workup consisted of ordering/reviewing CBC, BMP, hepatic function panel, lipase, urinalysis. After previous admission her lipase was noted to be normal, but her transaminases were elevated as well as her alkaline phosphatase. She was given a dose of Zofran and a liter of fluids for symptomatic control. Discussed with attending physician, we are not recommending repeat imaging at this time, consideredCT, but given that she is not having worsening pain, and her prior CT showed mild pancreatitis, will obtain labs, and add on imaging as indicated. Hepatic function panel shows increased bilirubin, alkaline phosphatase, AST, and ALT, all increasedover her previous. CBC benign without leukocytosis. BMP essentially benign. On reevaluation, patient states that her nausea is somewhat improved, she is continues to have mildepigastric pain. We discussed the results of her evaluation and she is amenable to a plan to admit for further evaluation with possible MRCP. Given her gastric bypass, we are concerned for cholestasis. In chart review note the patient did have negative mono and hepatitis panel at her previous presentation. Discussed with hospitalist, they have accepted onto their service for further evaluation and recommendations. Please see inpatient notes for full details on hospital course and final disposition. I discussed this patient and their evaluation with my attending Dr. Mcdonough, who independently evaluated the patient, and they are in agreement with the above treatment plan and disposition. Diagnoses as of 10/28/23 1155 Transaminitis Hx of gastric bypass Hyperbilirubinemia ED Medications managed: Medications sodium chloride 0.9 % bolus 1,000 mL (0 mL IntraVENous Stopped 10/28/23 1047) ondansetron (Zofran) injection 4 mg (4 mg IntraVENous Given 10/28/23 0923) PROCEDURES: Unless otherwise noted below, none Procedures FINAL IMPRESSION 1. Transaminitis 2. Hx of gastric bypass 3. Hyperbilirubinemia DISPOSITION Admit 10/28/2023 11:55:05 AM PATIENT REFERRED TO: No follow-up provider specified. DISCHARGE MEDICATIONS: New Prescriptions No medications on file (Comment: Please note this report has been produced using speech recognition software and may contain errors related to that system including errors in grammar, punctuation, and spelling, as well as words and phrases that may be inappropriate. If there are any questions or concerns please feel freeto contact the dictating provider for clarification.) Johana Ratliff PA-C (electronically signed) Emergency Medicine Provider Johana Ratliff PA-C 10/28/23 1155 * Rao Mcdonough DO - 10/28/2023 9:21 AM EDT Emergency Department Encounter [facility] Patient: Anne Marie Peterson : 1995 Date of Evaluation: 10/28/2023 ED Supervising Physician: Rao Mcodnough DO I personally evaluated Anne Marie Peterson and made/approved the management plan and take responsibility for the patient management. This will serve as my Supervisory note and shared attestation. I did perform a substantive portion of the visit including all aspects of the Medical Decision Making. I wore appropriate PPE for the entirety of this encounter. In brief, Anne Marie Peterson is a 28 y.o. that presents to the emergency department with chief complaint of ongoing nausea, epigastric pain, and vomiting. Recently admitted for this condition after theynoted changes consistent with pancreatitis but could not stay due to childcare concerns and now having continued symptoms. Feels she needs admitted. No jaundice or fevers. Focused exam: Alert and oriented x 3. Heart is regular noted. Lungs are auscultation bilaterally. Mild tenderness to palpation epigastric and right upper quadrant's of abdomen. No rebound or guarding. Brief ED course/MDM: The patient has ongoing nausea symptoms and worsening bilirubinemia and further increase of transaminases when compared to levels from 2 days ago. Previous workup did include hepatitis panel which was negative. She is currently afebrile and has no signs of any mental status changes, diffuse rash, or other complications. However, I do believe she warrants further evaluation with MRCP due to worsening bilirubinemia in the setting of known liver disease. All diagnostic, treatment, and disposition decisions were made by myself in conjunction with the MARY. For all further details of the patient's emergency department visit, please see their documentation. (Comment: Please note this report has been produced using speech recognition software and may contain errors related to that system including errors in grammar, punctuation, and spelling, as well as words and phrases that may be inappropriate. If there are any questions or concerns please feel freeto contact the dictating provider for clarification.) Rao Mcdonough DO [employer] Rao Mcdonough DO 10/29/23 5057 documented in this [facility]09-05-2024 History and physical note* Manuel Villarreal MD - 10/28/2023 12:50 PM EDT Attending History and Physical Admit Date: 10/28/2023 PCP: Xenia Lane CHIEF COMPLAINT: Nausea (Pt c/o of nausea, weakness and dizziness. 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 Pt states at triage window. I'm pretty sure I'm dehydrated.) History Obtained From: EMR patient HISTORY OF PRESENT ILLNESS: Anne Marie is a 28 y.o. female with past medical history below who presents with chief complaint listed above. Per chart review: Anne Marie is a 28 y.o. female with past medical history significant for anemia, atrial fibrillation, Listerman expressive disorder, sleep apnea who presented to the emergency room with complaint of abdominal pain, Fever which has been going on intermittently for past 1 week. Patient fever broke today. She was also having associated nausea and anorexia. Patient was seen and evaluated the emergency room to days ago. CT abdomen pelvis at that time showed possible mild pancreatitis. Patient lipase level was within normal limits. Patient was not having any epigastric pain though liver function panelwere elevated along with alkaline phosphatase. Patient was reevaluated and alkaline phosphatase andLFTs are trending further up. Patient is admitted to the hospital for acute pancreatitis, nausea and anorexia with elevated LFT. Patient was admitted by Dr. Wong all night physician. However later in the evening she refused to stay and ended up signing AGAINST MEDICAL ADVICE. I did not have clinicalencounter with patient before she left [place]. Patient came back to [facility] ED today. Upon evaluation, patient Denies abdominal pain. Persistent nausea. Will admit for pancreatitis, transaminitis, GI and GS work up and management. 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 Memo [facility] / [facility] - inguinal hernia LAP GASTRIC BYPASS/SANDRA-EN-Y (HISTORICAL) 05/10/2023 LRYGB - Dr. Campbell LAP,CHOLECYSTECTOMY (HISTORICAL) 2009 [facility] UPPER GASTROINTESTINAL ENDOSCOPY Family History: Family History Problem Relation Name Age of Onset Cancer Mother Hypertension Mother Obesity Mother Heart disease Father Obesity Father Cancer Maternal Grandmother Heart disease Maternal Grandmother Stroke Maternal Grandfather Hypertension Maternal Grandfather Heart disease Maternal Grandfather Diabetes Maternal Grandfather Obesity Maternal Grandfather Anesthesia problems Maternal Grandfather Medications Prior to Admission: Current Facility-Administered Medications on File Prior to Encounter Medication Dose Route Frequency Provider Last Rate Last Admin [DISCONTINUED] calcium citrate (Calcitrate) tablet 475 mg 475 mg Oral TID Zeenat Gentile MD 475 mg at 10/27/23 0954 [DISCONTINUED] cholecalciferol (Vitamin D-3) tablet 125 mcg 125 mcg Oral Daily Zeenat Gentile MD 125 mcg at 10/27/23 1256 [DISCONTINUED] enoxaparin (Lovenox) syringe 30 mg 30 mg SubCUTAneous 2 times per day Zeenat Gentile MD [DISCONTINUED] ferrous sulfate tablet 325 mg 325 mg Oral BID Zeenat Gentile MD 325 mg at 10/27/23 0955 [DISCONTINUED] flecainide (Tambocor) tablet 150 mg 150 mg Oral Once PRN Zeenat Gentile MD [DISCONTINUED] HYDROmorphone (Dilaudid) injection 0.5 mg 0.5 mg IntraVENous q4h PRN Zeenat Gentile MD [DISCONTINUED] HYDROmorphone (Dilaudid) injection 1 mg 1 mg IntraVENous q4h PRN Zeenat Gentile MD [DISCONTINUED] magnesium chloride EC tablet 64 mg 1 tablet Oral Daily Zeenat Gentile MD 64 mg at 10/27/23 0900 [DISCONTINUED] metoprolol tartrate (Lopressor) tablet 25 mg 25 mg Oral BID Zeenat Gentile MD 25 mg at 10/27/232048 [DISCONTINUED] naloxone (Narcan) injection 0.4 mg 0.4 mg IntraVENous q5 min PRN Zeenat Gentile MD [DISCONTINUED] ondansetron (Zofran) injection 4 mg 4 mg IntraVENous q6h PRN Zeenat Gentile MD [DISCONTINUED] ondansetron ODT (Zofran-ODT) disintegrating tablet 4 mg 4 mg Oral q8h PRN Zeenat Gentile MD [DISCONTINUED] pantoprazole (ProtoNix) EC tablet 40 mg 40 mg Oral qAM AC Zeenat Gentile MD [DISCONTINUED] polyethylene glycol (PEG) 3350 (Miralax) packet 17 g 17 g Oral Daily PRN Zeenat Gentile MD [DISCONTINUED] therapeutic multivitamin-minerals (Theragran-M) tablet 1 tablet Oral Daily Zeenat Gentile MD 1 tablet at 10/27/23 1000 [DISCONTINUED] thiamine (Vitamin B1) tablet 50 mg 50 mg Oral Daily Zeenat Gentile MD 50 mg at 10/27/23 0953 Current Outpatient Medications on File Prior to Encounter Medication Sig Dispense Refill calcium citrate 250 MG tablet Take 2 tablets (500 mg) by mouth 3 times daily. Take 2 tablets by mouth three times daily. 180 tablet 11 Cyanocobalamin (Vitamin B-12) [address] 1 Dose under the tongue daily. ferrous sulfate 325 (65 Fe) MG tablet Take 1 tablet (325 mg) by mouth 2 times daily. 30 tablet 3 flecainide (Tambocor) 50 MG tablet Take 3 tablets (150 mg) by mouth Once as needed (Take 3 pills asneeded for episodes of atrial fibrillation). 30 tablet 3 levonorgestrel (Mikie) 13.5 MG IUD by IntraUTERine route Once. magnesium 30 MG tablet Take 30 mg by mouth 2 times daily. metoprolol tartrate (Lopressor) 25 MG tablet Take 1 tablet (25 mg) by mouth 2 times daily. 60 tablet 11 omeprazole (PriLOSEC) [address] capsule Take 1 capsule (20 mg) by mouth daily. Do not crush or chew.90 capsule 1 Pediatric Multivitamins-Iron (FLINTSTONES PLUS IRON PO) Take 2 tablets by mouth daily. Respiratory Therapy Supplies (CareTouch 2 CPAP Hose Dominatrix) misc 10 cm h20 thiamine (Vitamin B-1) 50 MG tablet Take 1 tablet (50 mg) by mouth daily. Take 1 tablet by mouth daily. 30 tablet 11 VITAMIN D, CHOLECALCIFEROL, PO Take 4,000 Int'l Units by mouth daily. Allergies: Nsaids Social History: Social History Socioeconomic History Marital status: Significant Other Spouse name: Not on file Number of children: Not on file Years of education: Not on file Highest education level: Not on file Occupational History Not on file Tobacco Use Smoking status: Never Smokeless tobacco: Never Vaping Use Vaping status: Never Used Substance and Sexual Activity Alcohol use: Not Currently Drug use: Never Sexual activity: Yes Partners: Male control/protection: I.U.D. Other Topics Concern Not on file Social History Narrative Not on file Social Determinants of Health Financial Resource Strain: Low Risk (10/27/2023) Overall Financial Resource Strain (CARDIA) Difficulty of Paying Living Expenses: Not hard at all Food Insecurity: No Food Insecurity (10/27/2023) Hunger Vital Sign Worried About Running Out of Food in the Last Year: Never true Ran Out of Food in the Last Year: Never true Transportation Needs: No Transportation Needs (10/27/2023) PRAPARE - Transportation Lack of Transportation (Medical): No Lack of Transportation (Non-Medical): No Physical Activity: Sufficiently Active (10/27/2023) Exercise Vital Sign Days of Exercise per Week: 3 days Minutes of Exercise per Session: 60 min Stress: No Stress Concern Present (10/27/2023) [employer] - Occupational Stress Questionnaire Feeling of Stress : Not at all Social Connections: Socially Integrated (10/27/2023) Social Connection and Isolation Panel [NHANES] Frequency of Communication with Friends and Family: More than three times a week Frequency of Social Gatherings with Friends and Family: Once a week Attends [employer]ism Services: More than 4 times per year Active Member of Clubs or Organizations: Yes Attends Club or Organization Meetings: More than 4 times per year Marital Status: Living with partner Intimate Partner Violence: Not At Risk (10/27/2023) Humiliation, Afraid, Rape, and Kick questionnaire Fear of Current or Ex-Partner: No Emotionally Abused: No Physically Abused: No Sexually Abused: No Housing Stability: Low Risk (10/27/2023) Housing Stability Vital Sign Unable to Pay for Housing in the Last Year: No Number of Times Moved in the Last Year: 1 Homeless in the Last Year: No REVIEW OF SYSTEMS: Other than patient's chronic conditions and those complaints in the history above, the rest of the 10 systems review were done and were negative. Vitals: BP 137/89 Pulse 109 Temp 36.8 C (98.2 F) (Temporal) Resp 16 LMP (LMP Unknown) SpO2 95% BMI Classification: Morbidly Obese (>40.0) Pulse Ox: SpO2 Av % Min: 95 % Max: 97 % Supplemental O2: PHYSICAL EXAM: General appearance: No apparent distress, appears stated age obese HEENT: Eyes: No scleral icterus Oral: Tongue is semi-moist Cardiovascular: S1/S2 heard, RRR Respiratory: Clear to auscultation bilaterally Abdomen: Soft, non-tender, non-distended bowel sounds positive Musculoskeletal: No obvious deformities seen DATA: CBC: Recent Labs 10/26/23232110/27/23 0547 10/28/23 0946 WBC 9.0 7.3 10.0 RBC 5.52* 4.90 5.46* HGB 12.5 11.2* 12.3 HCT 39.4 35.4 37.9 MCV 71.4* 72.2* 69.4* RDW 18.0* 17.9* 18.3* PLT 176 169 191 BMP: Recent Labs 10/26/23232110/27/23 0547 10/28/23 0946 NA 135 136 134* K 3.5 3.3* 3.5 CL 100 101 100 CO2 22 23 23 BUN 5* 5* 5* CREATININE 0.61 0.65 0.58 GLUCOSE 74 73 87 CALCIUM 8.6 8.3* 8.4 ANIONGAP 13 12 11 LIVER PROFILE: Recent Labs 10/26/23 2322 10/27/23 0547 10/28/23 0946 AST 432* 374* 475* ALT 274* 256* 280* BILITOT 3.2* 3.0* 4.0* ALKPHOS 595* 566* 707* PROT 7.2 6.4 7.5 PT/INR: No results for input(s): PROTIME, INR in the last 72 hours. CARDIAC ENZYMES: No results for input(s): TROPONINI in the last 72 hours. Procalcitonin: No results found for: PROCAL Urine Culture: Results for orders placed or performed during the hospital encounter of 10/26/23 Urine culture Specimen: Urine, Clean Catch Result Value Ref Range Urine Culture Normal urogenital denise present COVID-19 PCR: No results for input(s): COVID19 in the last 72 hours. Encounter Date: 08/23/23 ECG 12 lead - CLINIC PERFORMED Narrative Sinus Rhythm -RSR(V1) NORMAL @IMAGES@ Transthoracic echocardiogram (TTE) complete with contrast, bubble, strain, and 3D PRN Result Date: 01/12/2023 Left Ventricle: Left ventricle size is normal. LVIDd is 4.7 cm. Mildly increased wall thickness. IVSd is 1.0 cm. LVPWd is 1.2 cm. Normal left ventricular systolic function. EF by 2D Simpsons Biplane is 65%. Normal wall motion. Right Ventricle: Right ventricle size is normal. Normal systolic function. Interatrial Septum: Grade I Positive (1 to 9 bubbles). Agitated saline study was positive withoutprovocation. Right to left shunt was noted. Aorta: Normal sized sinuses of Valsalva and ascending aorta. Pericardium: No pericardial effusion. No significant valvular abnormalities. I reviewed: [x] laboratory results [x] radiographic results At the time of today's encounter. Pt was advised of the results. IMPRESSION: Chief Complaint Patient presents with Nausea Pt c/o of nausea, weakness and dizziness. 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 Pt states at triage window. I'm pretty sure I'm dehydrated. 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 Elevated liver enzyme --acute hepatitis negative. Hx cholecystectomy. consult GI for possible MRCP vs ERCP Intractable nausea--supportive care pancreatitis --on CT scan, lipase normal Dehydration ---IVF S/p Gastric bypass --consult bariatric surgery Afib --clarify flecainide, resume, continue metoprolol Morbid obesity -no chemical DVT ppx due to possible procedure -PT/OT eval/increase activity -am labs, replace lytes prn -vitals per routine -home meds as ordered -DVT prophylaxis: [] Lovenox [] Heparin [] SCDs [x] Encourage ambulation [] Already on Anticoagulation -see below for additional orders, further recommendations to follow Orders Placed This Encounter Procedures CBC auto differential Basic metabolic panel Urinalysis complete with reflex to Culture Hepatic function panel Lipase Complete Urinalysis Man Differential Insert peripheral IV Admit to inpatient Due to the review of above complex data and the acute illness and/or undiagnosed new problem which may pose significant morbidity, The complexity of this case is: Moderate Anticipated Discharge - Date - 10/30 - Location - Home - Pending the following - GI work up Please forward a copy of this H&P to the patient's PCP. Thank you. Electronically signed by Manuel Villarreal MD [facility] Anne Marie Kristen : 1995 Primary Care Physician: Xenia Lane The patient and/or family/surrogate voluntarily agreed to participate in ACP services. Patient s cognitive capacity: normal Code Status: [x] [FULL CODE - Continue all advanced life support: CPR,intubation,invasive procedures] [_] [DNR-CCA - DO NOT do CPR, intubation] [_] [DNR-NAVAL MARINE ENGINEER - Comfort care only] [_] DNR form [was/was not] signed Summary of discussion: The patient HCPOA is the following: none. [Condition that instigated the ACP on this DOS, relevant PMH, functional status, goals of care, andwhom this was discussed with including names and relationship to the patient, and any relevant advance care documentation discussion] I answered all the patient/family questions that I could within the range and scope of the current medical situation. We discussed the medical conditions, risks, benefits, outcomes, and goals of careat this time for the patient's medical issues at hand in the face of the patient's chronic issues and current presentation. Manuel Villarreal MD [facility] 10/28/2023, @NOW Zoe Majeste Phone: [phone] [facility]09-05-2024 History and physical note* Manuel Villarreal MD - 10/28/2023 12:50 PM EDT Attending History and Physical Admit Date: 10/28/2023 PCP: Xenia Lane CHIEF COMPLAINT: Nausea (Pt c/o of nausea, weakness and dizziness. 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 Pt states at triage window. I'm pretty sure I'm dehydrated.) History Obtained From: EMR patient HISTORY OF PRESENT ILLNESS: Anne Marie is a 28 y.o. female with past medical history below who presents with chief complaint listed above. Per chart review: Anne Marie is a 28 y.o. female with past medical history significant for anemia, atrial fibrillation, Listerman expressive disorder, sleep apnea who presented to the emergency room with complaint of abdominal pain, Fever which has been going on intermittently for past 1 week. Patient fever broke today. She was also having associated nausea and anorexia. Patient was seen and evaluated the emergency room to days ago. CT abdomen pelvis at that time showed possible mild pancreatitis. Patient lipase level was within normal limits. Patient was not having any epigastric pain though liver function panelwere elevated along with alkaline phosphatase. Patient was reevaluated and alkaline phosphatase andLFTs are trending further up. Patient is admitted to the hospital for acute pancreatitis, nausea and anorexia with elevated LFT. Patient was admitted by Dr. Wong all night physician. However later in the evening she refused to stay and ended up signing AGAINST MEDICAL ADVICE. I did not have clinicalencounter with patient before she left AMA. Patient came back to [facility] ED today. Upon evaluation, patient Denies abdominal pain. Persistent nausea. Will admit for pancreatitis, transaminitis, GI and GS work up and management. 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 Memo Duke / Ernst Chavez [facility] - inguinal hernia LAP GASTRIC BYPASS/SANDRA-EN-Y (HISTORICAL) 05/10/2023 [facility] - Dr. Campbell LAP,CHOLECYSTECTOMY (HISTORICAL) 2009 Dr. Memo Duke / Ernst Chavez [facility] UPPER GASTROINTESTINAL ENDOSCOPY Family History: Family History Problem Relation Name Age of Onset Cancer Mother Hypertension Mother Obesity Mother Heart disease Father Obesity Father Cancer Maternal Grandmother Heart disease Maternal Grandmother Stroke Maternal Grandfather Hypertension Maternal Grandfather Heart disease Maternal Grandfather Diabetes Maternal Grandfather Obesity Maternal Grandfather Anesthesia problems Maternal Grandfather Medications Prior to Admission: Current Facility-Administered Medications on File Prior to Encounter Medication Dose Route Frequency Provider Last Rate Last Admin [DISCONTINUED] calcium citrate (Calcitrate) tablet 475 mg 475 mg Oral TID Zeenat Gentile MD 475 mg at 10/27/23 0954 [DISCONTINUED] cholecalciferol (Vitamin D-3) tablet 125 mcg 125 mcg Oral Daily Zeenat Gentile MD 125 mcg at 10/27/23 1256 [DISCONTINUED] enoxaparin (Lovenox) syringe 30 mg 30 mg SubCUTAneous 2 times per day Zeenat Gentile MD [DISCONTINUED] ferrous sulfate tablet 325 mg 325 mg Oral BID Zeenat Gentile MD 325 mg at 10/27/23 0955 [DISCONTINUED] flecainide (Tambocor) tablet 150 mg 150 mg Oral Once PRN Zeenat Gentile MD [DISCONTINUED] HYDROmorphone (Dilaudid) injection 0.5 mg 0.5 mg IntraVENous q4h PRN Zeenat Gentile MD [DISCONTINUED] HYDROmorphone (Dilaudid) injection 1 mg 1 mg IntraVENous q4h PRN Zeenat Gentile MD [DISCONTINUED] magnesium chloride EC tablet 64 mg 1 tablet Oral Daily Zeenat Gentile MD 64 mg at 10/27/23 0900 [DISCONTINUED] metoprolol tartrate (Lopressor) tablet 25 mg 25 mg Oral BID Zeenat Gentile MD 25 mg at 10/27/232048 [DISCONTINUED] naloxone (Narcan) injection 0.4 mg 0.4 mg IntraVENous q5 min PRN Zeenat Gentile MD [DISCONTINUED] ondansetron (Zofran) injection 4 mg 4 mg IntraVENous q6h PRN Zeenat Gentile MD [DISCONTINUED] ondansetron ODT (Zofran-ODT) disintegrating tablet 4 mg 4 mg Oral q8h PRN Zeenat Gentile MD [DISCONTINUED] pantoprazole (ProtoNix) EC tablet 40 mg 40 mg Oral qAM AC Zeenat Gentile MD [DISCONTINUED] polyethylene glycol (PEG) 3350 (Miralax) packet 17 g 17 g Oral Daily PRN Zeenat Gentile MD [DISCONTINUED] therapeutic multivitamin-minerals (Theragran-M) tablet 1 tablet Oral Daily Zeenat Gentile MD 1 tablet at 10/27/23 1000 [DISCONTINUED] thiamine (Vitamin B1) tablet 50 mg 50 mg Oral Daily Zeenat Gnetile MD 50 mg at 10/27/23 0953 Current Outpatient Medications on File Prior to Encounter Medication Sig Dispense Refill calcium citrate 250 MG tablet Take 2 tablets (500 mg) by mouth 3 times daily. Take 2 tablets by mouth three times daily. 180 tablet 11 Cyanocobalamin (Vitamin B-12) [address] 1 Dose under the tongue daily. ferrous sulfate 325 (65 Fe) MG tablet Take 1 tablet (325 mg) by mouth 2 times daily. 30 tablet 3 flecainide (Tambocor) 50 MG tablet Take 3 tablets (150 mg) by mouth Once as needed (Take 3 pills asneeded for episodes of atrial fibrillation). 30 tablet 3 levonorgestrel (Mikie) 13.5 MG IUD by IntraUTERine route Once. magnesium 30 MG tablet Take 30 mg by mouth 2 times daily. metoprolol tartrate (Lopressor) 25 MG tablet Take 1 tablet (25 mg) by mouth 2 times daily. 60 tablet 11 omeprazole (PriLOSEC) [address] capsule Take 1 capsule (20 mg) by mouth daily. Do not crush or chew.90 capsule 1 Pediatric Multivitamins-Iron (FLINTSTONES PLUS IRON PO) Take 2 tablets by mouth daily. Respiratory Therapy Supplies (CareTouch 2 CPAP Hose Dominatrix) misc 10 cm h20 thiamine (Vitamin B-1) 50 MG tablet Take 1 tablet (50 mg) by mouth daily. Take 1 tablet by mouth daily. 30 tablet 11 VITAMIN D, CHOLECALCIFEROL, PO Take 4,000 Int'l Units by mouth daily. Allergies: Nsaids Social History: Social History Socioeconomic History Marital status: Significant Other Spouse name: Not on file Number of children: Not on file Years of education: Not on file Highest education level: Not on file Occupational History Not on file Tobacco Use Smoking status: Never Smokeless tobacco: Never Vaping Use Vaping status: Never Used Substance and Sexual Activity Alcohol use: Not Currently Drug use: Never Sexual activity: Yes Partners: Male control/protection: I.U.D. Other Topics Concern Not on file Social History Narrative Not on file Social Determinants of Health Financial Resource Strain: Low Risk (10/27/2023) Overall Financial Resource Strain (CARDIA) Difficulty of Paying Living Expenses: Not hard at all Food Insecurity: No Food Insecurity (10/27/2023) Hunger Vital Sign Worried About Running Out of Food in the Last Year: Never true Ran Out of Food in the Last Year: Never true Transportation Needs: No Transportation Needs (10/27/2023) PRAPARE - Transportation Lack of Transportation (Medical): No Lack of Transportation (Non-Medical): No Physical Activity: Sufficiently Active (10/27/2023) Exercise Vital Sign Days of Exercise per Week: 3 days Minutes of Exercise per Session: 60 min Stress: No Stress Concern Present (10/27/2023) [employer] - Occupational Stress Questionnaire Feeling of Stress : Not at all Social Connections: Socially Integrated (10/27/2023) Social Connection and Isolation Panel [NHANES] Frequency of Communication with Friends and Family: More than three times a week Frequency of Social Gatherings with Friends and Family: Once a week Attends [employer]ism Services: More than 4 times per year Active Member of Clubs or Organizations: Yes Attends Club or Organization Meetings: More than 4 times per year Marital Status: Living with partner Intimate Partner Violence: Not At Risk (10/27/2023) Humiliation, Afraid, Rape, and Kick questionnaire Fear of Current or Ex-Partner: No Emotionally Abused: No Physically Abused: No Sexually Abused: No Housing Stability: Low Risk (10/27/2023) Housing Stability Vital Sign Unable to Pay for Housing in the Last Year: No Number of Times Moved in the Last Year: 1 Homeless in the Last Year: No REVIEW OF SYSTEMS: Other than patient's chronic conditions and those complaints in the history above, the rest of the 10 systems review were done and were negative. Vitals: BP 137/89 Pulse 109 Temp 36.8 C (98.2 F) (Temporal) Resp 16 LMP (LMP Unknown) SpO2 95% BMI Classification: Morbidly Obese (>40.0) Pulse Ox: SpO2 Av % Min: 95 % Max: 97 % Supplemental O2: PHYSICAL EXAM: General appearance: No apparent distress, appears stated age obese HEENT: Eyes: No scleral icterus Oral: Tongue is semi-moist Cardiovascular: S1/S2 heard, RRR Respiratory: Clear to auscultation bilaterally Abdomen: Soft, non-tender, non-distended bowel sounds positive Musculoskeletal: No obvious deformities seen DATA: CBC: Recent Labs 10/26/23232110/27/2354610/28/23 0946 WBC 9.0 7.3 10.0 RBC 5.52* 4.90 5.46* HGB 12.5 11.2* 12.3 HCT 39.4 35.4 37.9 MCV 71.4* 72.2* 69.4* RDW 18.0* 17.9* 18.3* PLT 176 169 191 BMP: Recent Labs 10/26/23232110/27/23 0547 10/28/23 0946 NA 135 136 134* K 3.5 3.3* 3.5 CL 100 101 100 CO2 22 23 23 BUN 5* 5* 5* CREATININE 0.61 0.65 0.58 GLUCOSE 74 73 87 CALCIUM 8.6 8.3* 8.4 ANIONGAP 13 12 11 LIVER PROFILE: Recent Labs 10/26/23232110/27/23 0547 10/28/23 0946 AST 432* 374* 475* ALT 274* 256* 280* BILITOT 3.2* 3.0* 4.0* ALKPHOS 595* 566* 707* PROT 7.2 6.4 7.5 PT/INR: No results for input(s): PROTIME, INR in the last 72 hours. CARDIAC ENZYMES: No results for input(s): TROPONINI in the last 72 hours. Procalcitonin: No results found for: PROCAL Urine Culture: Results for orders placed or performed during the hospital encounter of 10/26/23 Urine culture Specimen: Urine, Clean Catch Result Value Ref Range Urine Culture Normal urogenital denise present COVID-19 PCR: No results for input(s): COVID19 in the last 72 hours. Encounter Date: 08/23/23 ECG 12 lead - CLINIC PERFORMED Narrative Sinus Rhythm -RSR(V1) NORMAL @IMAGES@ Transthoracic echocardiogram (TTE) complete with contrast, bubble, strain, and 3D PRN Result Date: 01/12/2023 Left Ventricle: Left ventricle size is normal. LVIDd is 4.7 cm. Mildly increased wall thickness. IVSd is 1.0 cm. LVPWd is 1.2 cm. Normal left ventricular systolic function. EF by 2D Simpsons Biplane is 65%. Normal wall motion. Right Ventricle: Right ventricle size is normal. Normal systolic function. Interatrial Septum: Grade I Positive (1 to 9 bubbles). Agitated saline study was positive withoutprovocation. Right to left shunt was noted. Aorta: Normal sized sinuses of Valsalva and ascending aorta. Pericardium: No pericardial effusion. No significant valvular abnormalities. I reviewed: [x] laboratory results [x] radiographic results At the time of today's encounter. Pt was advised of the results. IMPRESSION: Chief Complaint Patient presents with Nausea Pt c/o of nausea, weakness and dizziness. 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 Pt states at triage window. I'm pretty sure I'm dehydrated. 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 Elevated liver enzyme --acute hepatitis negative. Hx cholecystectomy. consult GI for possible MRCP vs ERCP Intractable nausea--supportive care pancreatitis --on CT scan, lipase normal Dehydration ---IVF S/p Gastric bypass --consult bariatric surgery Afib --clarify flecainide, resume, continue metoprolol Morbid obesity -no chemical DVT ppx due to possible procedure -PT/OT eval/increase activity -am labs, replace lytes prn -vitals per routine -home meds as ordered -DVT prophylaxis: [] Lovenox [] Heparin [] SCDs [x] Encourage ambulation [] Already on Anticoagulation -see below for additional orders, further recommendations to follow Orders Placed This Encounter Procedures CBC auto differential Basic metabolic panel Urinalysis complete with reflex to Culture Hepatic function panel Lipase Complete Urinalysis Man Differential Insert peripheral IV Admit to inpatient Due to the review of above complex data and the acute illness and/or undiagnosed new problem which may pose significant morbidity, The complexity of this case is: Moderate Anticipated Discharge - Date - 10/30 - Location - Home - Pending the following - GI work up Please forward a copy of this H&P to the patient's PCP. Thank you. Electronically signed by Manuel Villarreal MD [facility] [facility] Anne Marie Peterson : 1995 Primary Care Physician: Xenia Lane The patient and/or family/surrogate voluntarily agreed to participate in ACP services. Patient s cognitive capacity: normal Code Status: [x] [FULL CODE - Continue all advanced life support: CPR,intubation,invasive procedures] [_] [DNR-CCA - DO NOT do CPR, intubation] [_] [DNR-NAVAL MARINE ENGINEER - Comfort care only] [_] DNR form [was/was not] signed Summary of discussion: The patient HCPOA is the following: none. [Condition that instigated the ACP on this DOS, relevant PMH, functional status, goals of care, andwhom this was discussed with including names and relationship to the patient, and any relevant advance care documentation discussion] I answered all the patient/family questions that I could within the range and scope of the current medical situation. We discussed the medical conditions, risks, benefits, outcomes, and goals of careat this time for the patient's medical issues at hand in the face of the patient's chronic issues and current presentation. Manuel Villarreal MD [facility] 10/28/2023, @NOW documented in this [facility]09-05-2024 Physician Emergency department Note* Johana Ratliff PA-C - 10/28/2023 9:21 AM EDT EMERGENCY DEPARTMENT ENCOUNTER Pt Name: Anne Marie Peterson Birthdate 1995 Date of evaluation: 10/28/2023 ED Provider: Johana Ratliff PA-C EDcare was supervised by Dr. Mcdonough who independently examined and evaluated the patient. Pleasesee their attestation note for further details. CHIEF COMPLAINT Chief Complaint Patient presents with Nausea Pt c/o of nausea, weakness and dizziness. 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 Pt states at triage window. I'm pretty sure I'm dehydrated. HISTORY OF PRESENT ILLNESS (Location/Symptom, Timing/Onset, Context/Setting, Quality, Duration, Modifying Factors, Severity) Note limiting factors. I wore appropriate PPE for the entirety of this encounter. HPI Anne Marie Peterson is a 28 y.o. female with past medical history significant for gastric bypass, A-fib, nutrient deficiency, kidney stones, UTIs, intestinal malabsorption, pancreatitis who presents to the emergency department with chief complaint of epigastric pain, nausea, vomiting. Patient reports has been feeling unwell for quite some time now. She was admitted at [facility] last week for mild pancreatitis, she had elevated liver enzymes, and positive blood cultures. She had to check out AMA due to childcare concerns, but since leaving the hospital yesterday she has continued to have epigastric pain, nausea, anorexia. Patient denies fevers, chills, jaundice. She states that since her symptoms have not improved she came back to the hospital in hopes to continue the course that was previously recommended. She statesher pain is not worse, but she has not been able to tolerate any p.o. intake. Nursing Notes were reviewed. 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 LAP GASTRIC BYPASS/SANDRA-EN-Y (HISTORICAL) 05/10/2023 [facility] - Dr. Campbell LAP,CHOLECYSTECTOMY (HISTORICAL) 2009 [facility] UPPER GASTROINTESTINAL ENDOSCOPY CURRENT MEDICATIONS Previous Medications CALCIUM CITRATE 250 MG TABLET Take 2 tablets (500 mg) by mouth 3 times daily. Take 2 tablets by mouth three times daily. CYANOCOBALAMIN (VITAMIN B-12) [address] 1 Dose under the tongue daily. FERROUS SULFATE 325 (65 FE) MG TABLET Take 1 tablet (325 mg) by mouth 2 times daily. FLECAINIDE (TAMBOCOR) 50 MG TABLET Take 3 tablets (150 mg) by mouth Once as needed (Take 3 pills asneeded for episodes of atrial fibrillation). LEVONORGESTREL (MIKIE) 13.5 MG IUD by IntraUTERine route Once. MAGNESIUM 30 MG TABLET Take 30 mg by mouth 2 times daily. METOPROLOL TARTRATE (LOPRESSOR) 25 MG TABLET Take 1 tablet (25 mg) by mouth 2 times daily. OMEPRAZOLE (PRILOSEC) [address] CAPSULE Take 1 capsule (20 mg) by mouth daily. Do not crush or chew. PEDIATRIC MULTIVITAMINS-IRON (FLINTSTONES PLUS IRON PO) Take 2 tablets by mouth daily. RESPIRATORY THERAPY SUPPLIES (CARETOUCH 2 CPAP HOSE PRODUCE SHIPPER) MISC 10 cm h20 THIAMINE (VITAMIN B-1) 50 MG TABLET Take 1 tablet (50 mg) by mouth daily. Take 1 tablet by mouth daily. VITAMIN D, CHOLECALCIFEROL, PO Take 4,000 Int'l Units by mouth daily. ALLERGIES Nsaids FAMILY HISTORY Family History Problem Relation Name Age of Onset Cancer Mother Hypertension Mother Obesity Mother Heart disease Father Obesity Father Cancer Maternal Grandmother Heart disease Maternal Grandmother Stroke Maternal Grandfather Hypertension Maternal Grandfather Heart disease Maternal Grandfather Diabetes Maternal Grandfather Obesity Maternal Grandfather Anesthesia problems Maternal Grandfather SOCIAL HISTORY Social History Socioeconomic History Marital status: Significant Other Tobacco Use Smoking status: Never Smokeless tobacco: Never Vaping Use Vaping status: Never Used Substance and Sexual Activity Alcohol use: Not Currently Drug use: Never Sexual activity: Yes Partners: Male control/protection: I.U.D. Social Determinants of Health Financial Resource Strain: Low Risk (10/27/2023) Overall Financial Resource Strain (CARDIA) Difficulty of Paying Living Expenses: Not hard at all Food Insecurity: No Food Insecurity (10/27/2023) Hunger Vital Sign Worried About Running Out of Food in the Last Year: Never true Ran Out of Food in the Last Year: Never true Transportation Needs: No Transportation Needs (10/27/2023) PRAPARE - Transportation Lack of Transportation (Medical): No Lack of Transportation (Non-Medical): No Physical Activity: Sufficiently Active (10/27/2023) Exercise Vital Sign Days of Exercise per Week: 3 days Minutes of Exercise per Session: 60 min Stress: No Stress Concern Present (10/27/2023) [employer] - Occupational Stress Questionnaire Feeling of Stress : Not at all Social Connections: Socially Integrated (10/27/2023) Social Connection and Isolation Panel [NHANES] Frequency of Communication with Friends and Family: More than three times a week Frequency of Social Gatherings with Friends and Family: Once a week Attends [employer] Services: More than 4 times per year Active Member of Clubs or Organizations: Yes Attends Club or Organization Meetings: More than 4 times per year Marital Status: Living with partner Intimate Partner Violence: Not At Risk (10/27/2023) Humiliation, Afraid, Rape, and Kick questionnaire Fear of Current or Ex-Partner: No Emotionally Abused: No Physically Abused: No Sexually Abused: No Housing Stability: Low Risk (10/27/2023) Housing Stability Vital Sign Unable to Pay for Housing in the Last Year: No Number of Times Moved in the Last Year: 1 Homeless in the Last Year: No SCREENINGS PHYSICAL EXAM ED Triage Vitals [10/28/23 0925] Temp Heart Rate Resp BP 36.8 C (98.2 F) 109 16 137/89 SpO2 Temp Source Heart Rate Source Patient Position 95 % Temporal Monitor -- BP Location FiO2 (%) -- -- Physical Exam Vitals and nursing note reviewed. Constitutional: General: She is not in acute distress. Appearance: She is well-developed. She is obese. She is not ill-appearing or diaphoretic. HENT: Head: Normocephalic and atraumatic. Eyes: Conjunctiva/sclera: Conjunctivae normal. Cardiovascular: Rate and Rhythm: Normal rate and regular rhythm. Heart sounds: No murmur heard. Pulmonary: Effort: Pulmonary effort is normal. No respiratory distress. Breath sounds: Normal breath sounds. No wheezing. Abdominal: Palpations: Abdomen is soft. Tenderness: There is abdominal tenderness. There is no right CVA tenderness, left CVA tenderness orguarding. Comments: Mild epigastric tenderness on examination. Musculoskeletal: General: No swelling. Cervical back: Neck supple. Skin: General: Skin is warm and dry. Capillary Refill: Capillary refill takes less than 2 seconds. Coloration: Skin is pale. Neurological: General: No focal deficit present. Mental Status: She is alert and oriented to person, place, and time. Psychiatric: Mood and Affect: Mood normal. Behavior: Behavior normal. Thought Content: Thought content normal. Judgment: Judgment normal. DIAGNOSTIC RESULTS RADIOLOGY (Per Emergency Physician): Interpretation per the Radiologist below, if available at the time of this note: No orders to display LABS: Labs Reviewed CBC WITH AUTO DIFFERENTIAL - Abnormal Result Value Auto WBC 10.0 RBC 5.46 (*) Hemoglobin 12.3 Hematocrit 37.9 MCV 69.4 (*) MCH 22.5 (*) MCHC 32.5 RDW 18.3 (*) Platelets 191 MPV nRBC 0.0 IPF 6 BASIC METABOLIC PANEL - Abnormal SODIUM 134 (*) POTASSIUM 3.5 CHLORIDE 100 CARBON DIOXIDE 23 UREA NITROGEN 5 (*) CREATININE 0.58 GLUCOSE 87 CALCIUM 8.4 ANION GAP 11 eGFR >90.0 HEPATIC FUNCTION PANEL - Abnormal BILIRUBIN, TOTAL 4.0 (*) BILIRUBIN, DIRECT 1.6 (*) ALKALINE PHOSPHATASE 707 (*) AST (SGOT) 475 (*) ALT 280 (*) ALBUMIN 3.5 TOTAL PROTEIN 7.5 MANUAL DIFFERENTIAL - Abnormal Adjusted WBC 10.0 Neutrophils % 44 Bands % 21 (*) Lymphocytes % 26 Monocytes % 5 Basophils % 2 Metamyelocytes % 3 (*) Absolute Neutrophil Count 6.5 Segs Absolute 6.5 Bands Absolute 2.1 (*) Lymphocytes Absolute 2.6 Monocytes Absolute 0.5 Basophils Absolute 0.2 Metamyelocytes Absolute 0.3 (*) Anisocytosis Slight (*) Microcytes Slight (*) Hypochromia Slight (*) WBC Morphology Normal PLT Morphology Normal Total Counted 155 Neutrophils Manual 68 Lymphocytes Manual 40 Monocytes Manual 7 Basophils Manual 3 Bands Manual 33 Metamyelocytes Manual 4 Narrative: Few reactive lymphocytes LIPASE - Normal LIPASE 135 COMPLETE URINALYSIS WITH REFLEX TO CULTURE Narrative: The following orders were created for panel order Urinalysis complete with reflex to Culture. Procedure Abnormality Status --------- ------ Complete Urinalysis[[id number]] Please view results for these tests on the individual orders. COMPLETE URINALYSIS All other labs were within normal range or not returned as of this dictation. EMERGENCY DEPARTMENT COURSE and DIFFERENTIAL DIAGNOSIS/MDM: Vitals: Vitals: 10/28/23 0925 BP: 137/89 Pulse: 109 Resp: 16 Temp: 36.8 C (98.2 F) TempSrc: Temporal SpO2: 95% The patient presented with a chief complaint of nausea, vomiting, recently departed from [facility] AGAINST MEDICAL ADVICE while being treated for pancreatitis and transaminitis. She has had a prior cholecystectomy. The differential diagnosis associated with this patient's presentation includes transaminitis, pancreatitis, cholangitis, biliary stasis. Patient is alert, oriented, pleasant and interactive, in no apparent distress. Answers all questions appropriately. Vital signs are stable. Our workup consisted of ordering/reviewing CBC, BMP, hepatic function panel, lipase, urinalysis. After previous admission her lipase was noted to be normal, but her transaminases were elevated as well as her alkaline phosphatase. She was given a dose of Zofran and a liter of fluids for symptomatic control. Discussed with attending physician, we are not recommending repeat imaging at this time, consideredCT, but given that she is not having worsening pain, and her prior CT showed mild pancreatitis, will obtain labs, and add on imaging as indicated. Hepatic function panel shows increased bilirubin, alkaline phosphatase, AST, and ALT, all increasedover her previous. CBC benign without leukocytosis. BMP essentially benign. On reevaluation, patient states that her nausea is somewhat improved, she is continues to have mildepigastric pain. We discussed the results of her evaluation and she is amenable to a plan to admit for further evaluation with possible MRCP. Given her gastric bypass, we are concerned for cholestasis. In chart review note the patient did have negative mono and hepatitis panel at her previous presentation. Discussed with hospitalist, they have accepted onto their service for further evaluation and recommendations. Please see inpatient notes for full details on hospital course and final disposition. I discussed this patient and their evaluation with my attending Dr. Mcdonough, who independently evaluated the patient, and they are in agreement with the above treatment plan and disposition. Diagnoses as of 10/28/23 1155 Transaminitis Hx of gastric bypass Hyperbilirubinemia ED Medications managed: Medications sodium chloride 0.9 % bolus 1,000 mL (0 mL IntraVENous Stopped 10/28/23 1047) ondansetron (Zofran) injection 4 mg (4 mg IntraVENous Given 10/28/23 0955) PROCEDURES: Unless otherwise noted below, none Procedures FINAL IMPRESSION 1. Transaminitis 2. Hx of gastric bypass 3. Hyperbilirubinemia DISPOSITION Admit 10/28/2023 11:55:05 AM PATIENT REFERRED TO: No follow-up provider specified. DISCHARGE MEDICATIONS: New Prescriptions No medications on file (Comment: Please note this report has been produced using speech recognition software and may contain errors related to that system including errors in grammar, punctuation, and spelling, as well as words and phrases that may be inappropriate. If there are any questions or concerns please feel freeto contact the dictating provider for clarification.) Johana Ratliff PA-C (electronically signed) Emergency Medicine Provider Johana Ratliff PA-C 10/28/23 1155 [id number] Physician Emergency department Note* Rao Mcdonough DO - 10/28/2023 9:21 AM EDT Emergency Department Encounter [facility] Patient: Anne Marie Peterson : 1995 Date of Evaluation: 10/28/2023 ED Supervising Physician: Rao Mcdonough DO I personally evaluated Anne Marie Peterson and made/approved the management plan and take responsibility for the patient management. This will serve as my Supervisory note and shared attestation. I did perform a substantive portion of the visit including all aspects of the Medical Decision Making. I wore appropriate PPE for the entirety of this encounter. In brief, Anne Marie Peterson is a 28 y.o. that presents to the emergency department with chief complaint of ongoing nausea, epigastric pain, and vomiting. Recently admitted for this condition after theynoted changes consistent with pancreatitis but could not stay due to childcare concerns and now having continued symptoms. Feels she needs admitted. No jaundice or fevers. Focused exam: Alert and oriented x 3. Heart is regular noted. Lungs are auscultation bilaterally. Mild tenderness to palpation epigastric and right upper quadrant's of abdomen. No rebound or guarding. Brief ED course/MDM: The patient has ongoing nausea symptoms and worsening bilirubinemia and further increase of transaminases when compared to levels from 2 days ago. Previous workup did include hepatitis panel which was negative. She is currently afebrile and has no signs of any mental status changes, diffuse rash, or other complications. However, I do believe she warrants further evaluation with MRCP due to worsening bilirubinemia in the setting of known liver disease. All diagnostic, treatment, and disposition decisions were made by myself in conjunction with the MARY. For all further details of the patient's emergency department visit, please see their documentation. (Comment: Please note this report has been produced using speech recognition software and may contain errors related to that system including errors in grammar, punctuation, and spelling, as well as words and phrases that may be inappropriate. If there are any questions or concerns please feel freeto contact the dictating provider for clarification.) Rao Mcdonough DO [employer] Rao Mcdonough DO 10/29/23 2814 Zoe Majeste Phone: [phone] Telephone encounter Note* Telephone Encounter - Zully Anton RN - 10/28/2023 8:47 AM EDT Noted, thank you. [facility] [id number] Telephone encounter Note* Telephone Encounter - Balwinder Weeks RN - 10/28/2023 8:30 AM EDT After review by MZ, pt should return to ER. Call to pt and she is on her way to the ER. States she does live 1.5 hrs away. Will route to [facility] as FYI. [facility] [id number] Telephone encounter Note* Telephone Encounter - Balwinder Weeks RN - 10/28/2023 8:12 AM EDT DOS 05/10/23 [facility] JZ Last OV-08/11/23 with T[facility]SA, next 11/15/23 with [facility] Pt was seen in ER on 10/26/23 and was to be admitted with transaminitis. Will send to for review. [facility] [id number] Telephone encounter Note* Telephone Encounter - Jolly Dodd RN - 10/28/2023 6:51 AM EDT S: Patient spoke with [facility] nurse regarding pancreatitis. B: Onset of symptoms 10/20/23. ER 10/26/23. [place] Y 05/10/23. A: In the ER and they wanted to admit her and discharged self d/t child day care provider and for pancreatitis and possible liver obstructions. Not feeling any better, last ate 8 days ago and having trouble getting fluids in, taking Zofran. Having no abd pain No vomiting, had dry heaves this am, nauseam trying to get fluids in, not doing well with getting fluids in, has not eaten in 8 days ,mouth is very dry, urinating dark to brown in color. R: Instructed to go back to ER for eval. Patient understands care advice. No further needs at this time. Patient instructed to call back with new or worsening symptoms. Reason for Disposition [1] Drinking very little AND [2] dehydration suspected (e.g., no urine > 12 hours, very dry mouth, very lightheaded) Protocols used: [id number] [facility] [id number] [facility]09-04-2024 Nurse Note* Sandy Avery RN - 10/27/2023 9:40 PM EDT Pt's IV taken out. Patient walked to ER exit to her ride. [facility] [id number] Nurse Note* Sandy Avery RN - 10/27/2023 9:40 PM EDT Pt's IV taken out. Patient walked to ER exit to her ride. * Sandy Avery RN - 10/27/2023 8:30 PM EDT This RN was made aware by patient that she cannot stay tonight due to lack of child day care provider services for her children. Hospitalist, Dr. Gentile as well as Dr. Moore were notified. POC from Dr. Moore wasrelayed and written down for patient. Terrazzo Tile Setter, Chantale was also made aware of the situation on her unit rounds. Will continue to monitor patient until her ride arrives. documented in this [facility]09-04-2024 Nurse Note* Sandy Avery RN - 10/27/2023 8:30 PM EDT This RN was made aware by patient that she cannot stay tonight due to lack of child day care provider services for her children. HospitalistDr. Gentile as well as Dr. Moore were notified. POC from Dr. Moore wasrelayed and written down for patient. [employer]ra[employer] Tile Setter, Chantale was also made aware of the situation on her unit rounds. Will continue to monitor patient until her ride arrives. [facility] [id number] Plan of care note* Care Plan - Lexis Price RN - 10/27/2023 6:58 PM EDT The patient is Moderately Stable - Low risk of patient condition declining or worsening The patient's goals for the shift include To feel stronger The clinical goals for the shift include maintained safety [facility] [id number] Miscellaneous Notes* Care Plan - Lexis Price RN - 10/27/2023 6:58 PM EDT The patient is Moderately Stable - Low risk of patient condition declining or worsening The patient's goals for the shift include To feel stronger The clinical goals for the shift include maintained safety * Care Plan - Lexis Price RN - 10/27/2023 1:12 PM EDT The patient is Moderately Stable - Low risk of patient condition declining or worsening The patient's goals for the shift include To feel better and stronger The clinical goals for the shift include maintain safety and stability Problem: Pain Goal: My pain/discomfort is manageable Outcome: Progressing Problem: Safety Goal: Patient will be injury free during hospitalization Outcome: Progressing Goal: I will remain free of falls Outcome: Progressing Problem: Safety Goal: I will remain free of falls Outcome: Progressing Problem: Daily Care Goal: Daily care needs are met Outcome: Progressing documented in this [facility]09-04-2024 Consult note* Liborio Moore MD - 10/27/2023 4:36 PM EDTAssociated Order(s): Inpatient consult to Gastroenterology Images from the original note were not included. GI CONSULTATION Patient: Anne Marie Peterson : 1995 Primary Care Physician: Xenia Lnae Inpatient consult to Gastroenterology Consult performed by: Liborio Moore MD Consult ordered by: Chelly Ray MD REASON FOR CONSULTATION: Abdominal pain/acute pancreatitis HISTORY OF PRESENT ILLNESS: Anne Marie Peterson is a 28 y.o. female with PMH below who presented to theER complaining of abdominal pain. Patient reports that a week ago she began having fever/chills, headache, body ache, fatigue, generalized weakness. She was seen by her PCP who did workup and was negative for virus. Patient reports that symptoms continued and therefore she decided come the emergency room. Patient denies any abdominal pain. Patient still is having some intermittent nausea. CT scanshowed possible mild pancreatitis. Patient reports that she had an episode of pancreatitis after her gastric bypass surgery earlier this year. Patient reports that her grandmother had issues with herpancreas. Labs in the ERShowed: Sodium 135, potassium 3.5, BUN 5, creatinine 0.61, alkaline phosphatase 595, AST 432, ALT 274, total bilirubin 3.2, direct bilirubin 1.2. Patient was admitted to CDU for further evaluation management. 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 Memo Duke / [facility] - inguinal hernia LAP GASTRIC BYPASS/SANDRA-EN-Y (HISTORICAL) 05/10/2023 [facility] - Dr. Shannan CROCKETT,CHOLECYSTECTOMY (HISTORICAL) 2009 Dr. Memo Duke / [facility] UPPER GASTROINTESTINAL ENDOSCOPY FAMILY HISTORY: Family History Problem Relation Name Age of Onset Cancer Mother Hypertension Mother Obesity Mother Heart disease Father Obesity Father Cancer Maternal Grandmother Heart disease Maternal Grandmother Stroke Maternal Grandfather Hypertension Maternal Grandfather Heart disease Maternal Grandfather Diabetes Maternal Grandfather Obesity Maternal Grandfather Anesthesia problems Maternal Grandfather SOCIAL HISTORY: TOBACCO: Social History Tobacco Use Smoking Status Never Smokeless Tobacco Never ETOH: Alcohol Use: Not At Risk (10/27/2023) AUDIT-C Frequency of Alcohol Consumption: Never Average Number of Drinks: Patient does not drink Frequency of Binge Drinking: Never DRUGS: Social History Substance and Sexual Activity Drug Use Never MEDICATIONS PRIOR TO ADMISSION: Current Outpatient Medications Medication Instructions calcium citrate 500 mg, Oral, 3 times daily, Take 2 tablets by mouth three times daily. Cyanocobalamin (Vitamin B-12) 500 MCG sublingual tablet 1 Dose, SubLINGual, Daily ferrous sulfate 325 mg, Oral, 2 times daily flecainide (TAMBOCOR) 150 mg, Oral, Once PRN levonorgestrel (Mikie) 13.5 MG IUD IntraUTERine, Once magnesium 30 mg, Oral, 2 times daily metoprolol tartrate (LOPRESSOR) 25 mg, Oral, 2 times daily omeprazole (PRILOSEC) 20 mg, Oral, Daily, Do not crush or chew. Pediatric Multivitamins-Iron (FLINTSTONES PLUS IRON PO) 2 tablets, Oral, Daily Respiratory Therapy Supplies (CareTouch 2 CPAP Hose Dominatrix) misc Does not apply, 10 cm h20 thiamine (VITAMIN B-1) 50 mg, Oral, Daily, Take 1 tablet by mouth daily. VITAMIN D, CHOLECALCIFEROL, PO 4,000 Int'l Units, Oral, Daily CURRENT MEDICATIONS: Current Facility-Administered Medications: calcium citrate (Calcitrate) tablet 475 mg, 475 mg, Oral, TID, Zeenat Gentile MD, 475 mg at 10/27/23 0954 cholecalciferol (Vitamin D-3) tablet 125 mcg, 125 mcg, Oral, Daily, Zeenat Gentile MD, 125 mcg at 10/27/23 1256 enoxaparin (Lovenox) syringe 30 mg, 30 mg, SubCUTAneous, 2 times per day, Zeenat Gentile MD ferrous sulfate tablet 325 mg, 325 mg, Oral, BID, Zeenat Gentile MD, 325 mg at 10/27/23 0955 flecainide (Tambocor) tablet 150 mg, 150 mg, Oral, Once PRN, Zeenat Gentile MD HYDROmorphone (Dilaudid) injection 0.5 mg, 0.5 mg, IntraVENous, q4h PRN, Zeenat Gentile MD HYDROmorphone (Dilaudid) injection 1 mg, 1 mg, IntraVENous, q4h PRN, Zeenat Gentile MD magnesium chloride EC tablet 64 mg, 1 tablet, Oral, Daily, Zeenat Gentile MD, 64 mg at 10/27/23 0900 metoprolol tartrate (Lopressor) tablet 25 mg, 25 mg, Oral, BID, Zeenat Gentile MD, 25 mg at 10/27/23 0954 naloxone (Narcan) injection 0.4 mg, 0.4 mg, IntraVENous, q5 min PRN, Zeenat Gentile MD ondansetron ODT (Zofran-ODT) disintegrating tablet 4 mg, 4 mg, Oral, q8h PRN OR ondansetron (Zofran) injection 4 mg, 4 mg, IntraVENous, q6h PRN, Zeenat Gentile MD pantoprazole (ProtoNix) EC tablet 40 mg, 40 mg, Oral, qAM AC, Zeenat Gentile MD polyethylene glycol (PEG) 3350 (Miralax) packet 17 g, 17 g, Oral, Daily PRN, Zeenat Gentile MD therapeutic multivitamin-minerals (Theragran-M) tablet, 1 tablet, Oral, Daily, Zeenat Gentile MD, 1 tablet at 10/27/23 1000 thiamine (Vitamin B1) tablet 50 mg, 50 mg, Oral, Daily, Zeenat Gentile MD, 50 mg at 10/27/23 0953 ALLERGIES: Allergies Allergen Reactions Nsaids S/P BARIATRIC SURGERY REVIEW OF SYSTEMS: No fever, chills, or sweats. Normal appetite and weight. No PLATT, visual disturbance, eye pain, jaundice, sore throat or mouth ulcers. No skin rash or itching. No CP, SOB, SANTOS, cough or wheeze. No urinary frequency, urgency, hematuria, or dysuria. No myalgia, arthralgia, or joint swelling. No weakness, numbness, or confusion. GI per HPI. No polyuria, polydipsia, heat or cold intolerance. PHYSICAL EXAM: VS: BP 128/93 (BP Location: Left arm, Patient Position: Sitting) Pulse 85 Temp 36.6 C (97.9 F) (Temporal) Resp 16 Ht 5' 6 (1.676 m) Wt (!) 305 lb (138 kg) SpO2 97% BMI 49.23 kg/m Body mass index is 49.23 kg/m . GENERAL: Pleasant and NAD. HEENT: NCAT, PERRLA, EOMI, Scleral anicteric. Oropharhynx clear with no erythema or exudate. Neck supple, no cervical LAD or thyromegaly. CV: RRR, NL S1/S2, no murmurs. Distal pulses palpable and equal b/l. LUNGS: CTA b/l. Normal percussion and palpation. No W/R/R. Abdomen: + BS, soft, non-tender and non-distended. No hepatosplenomegaly. No mass felt. No rebound or guarding. No hernia. Extremities: No C/C/E. No muscle atrophy. Skin: No skin lesion or breakdown. Lymph: No cervical or supraclavicular LAD. Musculoskeletal: Strength 5/5 in all exts. No joint tenderness or effusions in LEs. Neurologic: A&O x 3, CN II-XII grossly intact. No asterixis. Non-focal. Psych: Normal affect and speech. LABS AND IMAGING: Recent blood work and relevant radiologic and endoscopic studies were reviewed and discussed with the patient. CMP: Recent Labs 10/26/23232110/27/23 0547 NA 135 136 K 3.5 3.3* CL 100 101 CO2 22 23 BUN 5* 5* CREATININE 0.61 0.65 GLUCOSE 74 73 CALCIUM 8.6 8.3* CBC: Recent Labs 10/26/23232110/27/23 0547 WBC 9.0 7.3 HGB 12.5 11.2* HCT 39.4 35.4 PLT 176 169 HEPATIC: Recent Labs 10/26/23232110/27/23 0547 AST 432* 374* ALT 274* 256* BILITOT 3.2* 3.0* ALKPHOS 595* 566* BNP: No results for input(s): BNP in the last 72 hours. LIPASE/AMYLASE: Recent Labs 10/26/232321 LIPASE 57 LACTATE: No lab exists for component: LACTA TROPONIN: No results for input(s): TROPONINI in the last 72 hours. LIPIDS: No results for input(s): CHOL, HDL in the last 72 hours. No lab exists for component: LDLCALCU INR: No results for input(s): INR in the last 72 hours. NH3:No results for input(s): AMMONIA in the last 72 hours. @IMAGES@ @RISRSLT@ XR chest 1 view Narrative: Patient Name: ANNE MARIE PETERSON : 1995 Exam Date/Time: 10/26/2023 22:41 Procedure: XR CHEST 1 VIEW Ordering Provider: ALONZO AMY Reason For Exam: HYPERTENSION INDICATION: Hypertension. VIEWS: Chest portable-one image COMPARISON: 06/07/2023 FINDINGS: The trachea is midline. The heart is not enlarged. The right hemidiaphragm is elevated. The costophrenic angles are sharp. There is no confluent consolidation. Impression: No radiographic acute cardiopulmonary process. Report Dictated on Electronically Signed By: Peggy Arreaga MD Electronically Signed Date/Time: 10/26/2023 10:44 PM EDT XR chest 1 view Final Result No radiographic acute cardiopulmonary process. Report Dictated on Electronically Signed By: Peggy Arreaga MD Electronically Signed Date/Time: 10/26/2023 10:44 PM EDT IMPRESSION / RECOMMENDATIONS: Chronic anemia A-fib Acute pancreatitis/elevated LFTs: CT scan suggests possible mild pancreatitis. Lipase was normal at57. Patient did have an episode of pancreatitis after gastric bypass surgery in May. She reports at that time all she had was nausea and vomiting and no abdominal pain. This time she has no abdominal pain. Unclear etiology. Elevated LFTs are starting to trend down but have high alkaline phosphatase and total bilirubin which can suggest obstructive process. Patient has history of cholecystectomywhen she was a teenager. -MRCP -IgG4 -Clear liquid diet and advance as tolerated -Supportive therapies per primary service If MRCP does not show any obstruction then patient could be discharged as long as she has follow-upand would likely need repeat hepatic function panel in approximately 3 to 5 days to make sure numbers are trending down. Thank you for allowing the GI service to be part of this patient's care. When the patient is discharged if she needs to follow up with GI please refer her to [facility] office ( ) which is the office of Tuan Louise, and Zonia. (Comment: Please note this report has been produced using speech recognition software and may contain errors related to that system including errors in grammar, punctuation, and spelling, as well as words and phrases that may be inappropriate. If there are any questions or concerns please feel freeto contact the dictating provider for clarification.) Zoe Majeste Phone: [phone] 380-704109-04-2024 Consult note* Liborio Moore MD - 10/27/2023 4:36 PM EDTAssociated Order(s): Inpatient consult to Gastroenterology Images from the original note were not included. GI CONSULTATION Patient: Anne Marie Peterson : 1995 Primary Care Physician: Xenia Lane Inpatient consult to Gastroenterology Consult performed by: Liborio Moore MD Consult ordered by: Chelly Ray MD REASON FOR CONSULTATION: Abdominal pain/acute pancreatitis HISTORY OF PRESENT ILLNESS: Anne Marie Peterson is a 28 y.o. female with PMH below who presented to theER complaining of abdominal pain. Patient reports that a week ago she began having fever/chills, headache, body ache, fatigue, generalized weakness. She was seen by her PCP who did workup and was negative for virus. Patient reports that symptoms continued and therefore she decided come the emergency room. Patient denies any abdominal pain. Patient still is having some intermittent nausea. CT scanshowed possible mild pancreatitis. Patient reports that she had an episode of pancreatitis after her gastric bypass surgery earlier this year. Patient reports that her grandmother had issues with herpancreas. Labs in the ERShowed: Sodium 135, potassium 3.5, BUN 5, creatinine 0.61, alkaline phosphatase 595, AST 432, ALT 274, total bilirubin 3.2, direct bilirubin 1.2. Patient was admitted to CDU for further evaluation management. 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 Memo Duke / Ernst Chavez [facility] - inguinal hernia LAP GASTRIC BYPASS/SANDRA-EN-Y (HISTORICAL) 05/10/2023 [facility] - Dr. Campbell LAP,CHOLECYSTECTOMY (HISTORICAL) 2009 [facility] UPPER GASTROINTESTINAL ENDOSCOPY FAMILY HISTORY: Family History Problem Relation Name Age of Onset Cancer Mother Hypertension Mother Obesity Mother Heart disease Father Obesity Father Cancer Maternal Grandmother Heart disease Maternal Grandmother Stroke Maternal Grandfather Hypertension Maternal Grandfather Heart disease Maternal Grandfather Diabetes Maternal Grandfather Obesity Maternal Grandfather Anesthesia problems Maternal Grandfather SOCIAL HISTORY: TOBACCO: Social History Tobacco Use Smoking Status Never Smokeless Tobacco Never ETOH: Alcohol Use: Not At Risk (10/27/2023) AUDIT-C Frequency of Alcohol Consumption: Never Average Number of Drinks: Patient does not drink Frequency of Binge Drinking: Never DRUGS: Social History Substance and Sexual Activity Drug Use Never MEDICATIONS PRIOR TO ADMISSION: Current Outpatient Medications Medication Instructions calcium citrate 500 mg, Oral, 3 times daily, Take 2 tablets by mouth three times daily. Cyanocobalamin (Vitamin B-12) 500 MCG sublingual tablet 1 Dose, SubLINGual, Daily ferrous sulfate 325 mg, Oral, 2 times daily flecainide (TAMBOCOR) 150 mg, Oral, Once PRN levonorgestrel (Mikie) 13.5 MG IUD IntraUTERine, Once magnesium 30 mg, Oral, 2 times daily metoprolol tartrate (LOPRESSOR) 25 mg, Oral, 2 times daily omeprazole (PRILOSEC) 20 mg, Oral, Daily, Do not crush or chew. Pediatric Multivitamins-Iron (FLINTSTONES PLUS IRON PO) 2 tablets, Oral, Daily Respiratory Therapy Supplies (CareTouch 2 CPAP Hose Dominatrix) misc Does not apply, 10 cm h20 thiamine (VITAMIN B-1) 50 mg, Oral, Daily, Take 1 tablet by mouth daily. VITAMIN D, CHOLECALCIFEROL, PO 4,000 Int'l Units, Oral, Daily CURRENT MEDICATIONS: Current Facility-Administered Medications: calcium citrate (Calcitrate) tablet 475 mg, 475 mg, Oral, TID, Zeenat Gentile MD, 475 mg at 10/27/23 0954 cholecalciferol (Vitamin D-3) tablet 125 mcg, 125 mcg, Oral, Daily, Zeenat Gentile MD, 125 mcg at 10/27/23 1256 enoxaparin (Lovenox) syringe 30 mg, 30 mg, SubCUTAneous, 2 times per day, Zeenat Gentile MD ferrous sulfate tablet 325 mg, 325 mg, Oral, BID, Zeenat Gentile MD, 325 mg at 10/27/23 0955 flecainide (Tambocor) tablet 150 mg, 150 mg, Oral, Once PRN, Zeenat Gentile MD HYDROmorphone (Dilaudid) injection 0.5 mg, 0.5 mg, IntraVENous, q4h PRN, Zeenat Gentile MD HYDROmorphone (Dilaudid) injection 1 mg, 1 mg, IntraVENous, q4h PRN, Zeenat Gentile MD magnesium chloride EC tablet 64 mg, 1 tablet, Oral, Daily, Zeenat Gentile MD, 64 mg at 10/27/23 0900 metoprolol tartrate (Lopressor) tablet 25 mg, 25 mg, Oral, BID, Zeenat Gentile MD, 25 mg at 10/27/23 0954 naloxone (Narcan) injection 0.4 mg, 0.4 mg, IntraVENous, q5 min PRN, Zeenat Gentile MD ondansetron ODT (Zofran-ODT) disintegrating tablet 4 mg, 4 mg, Oral, q8h PRN OR ondansetron (Zofran) injection 4 mg, 4 mg, IntraVENous, q6h PRN, Zeenat Gentile MD pantoprazole (ProtoNix) EC tablet 40 mg, 40 mg, Oral, qAM AC, Zeenat Gentile MD polyethylene glycol (PEG) 3350 (Miralax) packet 17 g, 17 g, Oral, Daily PRN, Zeenat Gentile MD therapeutic multivitamin-minerals (Theragran-M) tablet, 1 tablet, Oral, Daily, Zeenat Gentile MD, 1 tablet at 10/27/23 1000 thiamine (Vitamin B1) tablet 50 mg, 50 mg, Oral, Daily, Zeenat Gentile MD, 50 mg at 10/27/23 0953 ALLERGIES: Allergies Allergen Reactions Nsaids S/P BARIATRIC SURGERY REVIEW OF SYSTEMS: No fever, chills, or sweats. Normal appetite and weight. No PLATT, visual disturbance, eye pain, jaundice, sore throat or mouth ulcers. No skin rash or itching. No CP, SOB, SANTOS, cough or wheeze. No urinary frequency, urgency, hematuria, or dysuria. No myalgia, arthralgia, or joint swelling. No weakness, numbness, or confusion. GI per HPI. No polyuria, polydipsia, heat or cold intolerance. PHYSICAL EXAM: VS: BP 128/93 (BP Location: Left arm, Patient Position: Sitting) Pulse 85 Temp 36.6 C (97.9 F) (Temporal) Resp 16 Ht 5' 6 (1.676 m) Wt (!) 305 lb (138 kg) SpO2 97% BMI 49.23 kg/m Body mass index is 49.23 kg/m . GENERAL: Pleasant and NAD. HEENT: NCAT, PERRLA, EOMI, Scleral anicteric. Oropharhynx clear with no erythema or exudate. Neck supple, no cervical LAD or thyromegaly. CV: RRR, NL S1/S2, no murmurs. Distal pulses palpable and equal b/l. LUNGS: CTA b/l. Normal percussion and palpation. No W/R/R. Abdomen: + BS, soft, non-tender and non-distended. No hepatosplenomegaly. No mass felt. No rebound or guarding. No hernia. Extremities: No C/C/E. No muscle atrophy. Skin: No skin lesion or breakdown. Lymph: No cervical or supraclavicular LAD. Musculoskeletal: Strength 5/5 in all exts. No joint tenderness or effusions in LEs. Neurologic: A&O x 3, CN II-XII grossly intact. No asterixis. Non-focal. Psych: Normal affect and speech. LABS AND IMAGING: Recent blood work and relevant radiologic and endoscopic studies were reviewed and discussed with the patient. CMP: Recent Labs 10/26/23232110/27/23 0547 NA 135 136 K 3.5 3.3* CL 100 101 CO2 22 23 BUN 5* 5* CREATININE 0.61 0.65 GLUCOSE 74 73 CALCIUM 8.6 8.3* CBC: Recent Labs 10/26/23232110/27/23 0547 WBC 9.0 7.3 HGB 12.5 11.2* HCT 39.4 35.4 PLT 176 169 HEPATIC: Recent Labs 10/26/23232110/27/23 0547 AST 432* 374* ALT 274* 256* BILITOT 3.2* 3.0* ALKPHOS 595* 566* BNP: No results for input(s): BNP in the last 72 hours. LIPASE/AMYLASE: Recent Labs 10/26/232321 LIPASE 57 LACTATE: No lab exists for component: LACTA TROPONIN: No results for input(s): TROPONINI in the last 72 hours. LIPIDS: No results for input(s): CHOL, HDL in the last 72 hours. No lab exists for component: LDLCALCU INR: No results for input(s): INR in the last 72 hours. NH3:No results for input(s): AMMONIA in the last 72 hours. @IMAGES@ @RISRSLT@ XR chest 1 view Narrative: Patient Name: ANNE MARIE PETERSON : 1995 Exam Date/Time: 10/26/2023 22:41 Procedure: XR CHEST 1 VIEW Ordering Provider: ALONZO AMY Reason For Exam: HYPERTENSION INDICATION: Hypertension. VIEWS: Chest portable-one image COMPARISON: 06/07/2023 FINDINGS: The trachea is midline. The heart is not enlarged. The right hemidiaphragm is elevated. The costophrenic angles are sharp. There is no confluent consolidation. Impression: No radiographic acute cardiopulmonary process. Report Dictated on Electronically Signed By: Peggy Arreaga MD Electronically Signed Date/Time: 10/26/2023 10:44 PM EDT XR chest 1 view Final Result No radiographic acute cardiopulmonary process. Report Dictated on Electronically Signed By: Peggy Arreaga MD Electronically Signed Date/Time: 10/26/2023 10:44 PM EDT IMPRESSION / RECOMMENDATIONS: Chronic anemia A-fib Acute pancreatitis/elevated LFTs: CT scan suggests possible mild pancreatitis. Lipase was normal at57. Patient did have an episode of pancreatitis after gastric bypass surgery in May. She reports at that time all she had was nausea and vomiting and no abdominal pain. This time she has no abdominal pain. Unclear etiology. Elevated LFTs are starting to trend down but have high alkaline phosphatase and total bilirubin which can suggest obstructive process. Patient has history of cholecystectomywhen she was a teenager. -MRCP -IgG4 -Clear liquid diet and advance as tolerated -Supportive therapies per primary service If MRCP does not show any obstruction then patient could be discharged as long as she has follow-upand would likely need repeat hepatic function panel in approximately 3 to 5 days to make sure numbers are trending down. Thank you for allowing the GI service to be part of this patient's care. When the patient is discharged if she needs to follow up with GI please refer her to [facility] office ( ) which is the office of Tuan Louise, and Zonia. (Comment: Please note this report has been produced using speech recognition software and may contain errors related to that system including errors in grammar, punctuation, and spelling, as well as words and phrases that may be inappropriate. If there are any questions or concerns please feel freeto contact the dictating provider for clarification.) documented in this [facility]09-04-2024 Plan of care note* Care Plan - Lexis Price RN - 10/27/2023 1:12 PM EDT The patient is Moderately Stable - Low risk of patient condition declining or worsening The patient's goals for the shift include To feel better and stronger The clinical goals for the shift include maintain safety and stability Problem: Pain Goal: My pain/discomfort is manageable Outcome: Progressing Problem: Safety Goal: Patient will be injury free during hospitalization Outcome: Progressing Goal: I will remain free of falls Outcome: Progressing Problem: Safety Goal: I will remain free of falls Outcome: Progressing Problem: Daily Care Goal: Daily care needs are met Outcome: Progressing [id number] History and physical note* Zeenat Gentile MD - 10/27/2023 1:42 AM EDT Attending History and Physical Admit Date: 10/26/2023 PCP: Xenia Lane CHIEF COMPLAINT: Abdominal pain Reason for Admission: Acute pancreatitis History Obtained From: patient HISTORY OF PRESENT ILLNESS: Anne Marie is a 28 y.o. female with past medical history significant for anemia, atrial fibrillation, Listerman expressive disorder, sleep apnea who presented to the emergency room with complaint of abdominal pain, Fever which has been going on intermittently for past 1 week. Patient fever broke today. She was also having associated nausea and anorexia. Patient was seen and evaluated the emergency room to days ago. CT abdomen pelvis at that time showed possible mild pancreatitis. Patient lipase level was within normal limits. Patient was not having any epigastric pain though liver function panelwere elevated along with alkaline phosphatase. Patient was reevaluated and alkaline phosphatase andLFTs are trending further up. Patient is admitted to the hospital for acute pancreatitis, nausea and anorexia with elevated LFT Past Medical History: Past Medical History: Diagnosis Date Anemia Atrial fibrillation (HCC) 2 episodes Back pain COVID-19 vaccine series completed 10/2020 Daytime sleepiness 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 Memo Duke / Ernst Chavez [facility] - inguinal hernia LAP GASTRIC BYPASS/SANDRA-EN-Y (HISTORICAL) 05/10/2023 [facility] - Dr. Campbell LAP,CHOLECYSTECTOMY (HISTORICAL) 2009 Dr. Memo Duke / Ernst Chavez [facility] UPPER GASTROINTESTINAL ENDOSCOPY Social History: Social History Socioeconomic History Marital status: Significant Other Spouse name: Not on file Number of children: Not on file Years of education: Not on file Highest education level: Not on file Occupational History Not on file Tobacco Use Smoking status: Never Smokeless tobacco: Never Vaping Use Vaping status: Never Used Substance and Sexual Activity Alcohol use: Not Currently Drug use: Never Sexual activity: Yes Partners: Male control/protection: I.U.D. Other Topics Concern Not on file Social History Narrative Not on file Social Determinants of Health Financial Resource Strain: Low Risk (05/19/2023) Overall Financial Resource Strain (CARDIA) Difficulty of Paying Living Expenses: Not hard at all Food Insecurity: No Food Insecurity (05/19/2023) Hunger Vital Sign Worried About Running Out of Food in the Last Year: Never true Ran Out of Food in the Last Year: Never true Transportation Needs: No Transportation Needs (05/19/2023) PRAPARE - Transportation Lack of Transportation (Medical): No Lack of Transportation (Non-Medical): No Physical Activity: Inactive (05/19/2023) Exercise Vital Sign Days of Exercise per Week: 0 days Minutes of Exercise per Session: 0 min Stress: No Stress Concern Present (05/19/2023) [employer] - Occupational Stress Questionnaire Feeling of Stress : Only a little Social Connections: Socially Isolated (05/19/2023) Social Connection and Isolation Panel [NHANES] Frequency of Communication with Friends and Family: More than three times a week Frequency of Social Gatherings with Friends and Family: More than three times a week Attends [employer] Services: Never Active Member of Clubs or Organizations: Patient unable to answer Attends Club or Organization Meetings: Never Marital Status: Never Intimate Partner Violence: Not At Risk (06/04/2023) Humiliation, Afraid, Rape, and Kick questionnaire Fear of Current or Ex-Partner: No Emotionally Abused: No Physically Abused: No Sexually Abused: No Housing Stability: Low Risk (05/19/2023) Housing Stability Vital Sign Unable to Pay for Housing in the Last Year: No Number of Places Lived in the Last Year: 1 Unstable Housing in the Last Year: No Family History: Family History Problem Relation Name Age of Onset Cancer Mother Hypertension Mother Obesity Mother Heart disease Father Obesity Father Cancer Maternal Grandmother Heart disease Maternal Grandmother Stroke Maternal Grandfather Hypertension Maternal Grandfather Heart disease Maternal Grandfather Diabetes Maternal Grandfather Obesity Maternal Grandfather Anesthesia problems Maternal Grandfather Medications Prior to Admission: No current facility-administered medications on file prior to encounter. Current Outpatient Medications on File Prior to Encounter Medication Sig Dispense Refill calcium citrate 250 MG tablet Take 2 tablets (500 mg) by mouth 3 times daily. Take 2 tablets by mouth three times daily. 180 tablet 11 Cyanocobalamin (Vitamin B-12) [address] 1 Dose under the tongue daily. ferrous sulfate 325 (65 Fe) MG tablet Take 1 tablet (325 mg) by mouth 2 times daily. 30 tablet 3 flecainide (Tambocor) 50 MG tablet Take 3 tablets (150 mg) by mouth Once as needed (Take 3 pills asneeded for episodes of atrial fibrillation). 30 tablet 3 levonorgestrel (Mikie) 13.5 MG IUD by IntraUTERine route Once. magnesium 30 MG tablet Take 30 mg by mouth 2 times daily. metoprolol tartrate (Lopressor) 25 MG tablet Take 1 tablet (25 mg) by mouth 2 times daily. 60 tablet 11 omeprazole (PriLOSEC) [address] capsule Take 1 capsule (20 mg) by mouth daily. Do not crush or chew.90 capsule 1 Pediatric Multivitamins-Iron (FLINTSTONES PLUS IRON PO) Take 2 tablets by mouth daily. Respiratory Therapy Supplies (CareTouch 2 CPAP Hose Dominatrix) misc 10 cm h20 thiamine (Vitamin B-1) 50 MG tablet Take 1 tablet (50 mg) by mouth daily. Take 1 tablet by mouth daily. 30 tablet 11 VITAMIN D, CHOLECALCIFEROL, PO Take 4,000 Int'l Units by mouth daily. Allergies: Allergies Allergen Reactions Nsaids S/P BARIATRIC SURGERY REVIEW OF SYSTEMS: Constitutional: Negative for fever, chills, activity change and unexpected weight change. HEENT: Negative for congestion, postnasal drip and sneezing. Eyes: Negative for itching and visual disturbance. Respiratory: Negative for apnea, cough, choking, chest tightness, shortness of breath, wheezing andstridor. Cardiovascular: Negative for chest pain. Gastrointestinal: Abdominal pain, nausea Genitourinary: Negative for dysuria, frequency and flank pain. Musculoskeletal: Negative for myalgias and joint swelling. Skin: Negative for rash. Neurological: Negative for dizziness, tremors, seizures, syncope, facial asymmetry, speech difficulty, weakness, numbness and headaches. Hematological: Negative for adenopathy. Psychiatric/Behavioral: Negative for suicidal ideas, behavioral problems, self- injury and dysphoricmood. Vitals: BP (!) 174/125 Pulse 96 Temp 37.1 C (98.8 F) (Temporal) Resp 18 Ht 5' 6 (1.676 m) Wt (!)305 lb (138 kg) SpO2 99% BMI 49.23 kg/m BMI Classification: Morbidly Obese (>40.0) Pulse Ox: SpO2 Av % Min: 99 % Max: 99 % Supplemental O2: PHYSICAL EXAM: Constitutional: General: Patient is not in acute distress. Appearance: Normal appearance. HENT: Head: Normocephalic and atraumatic. Right Ear: External ear normal. Left Ear: External ear normal. Mouth/Throat: Mouth: Mucous membranes are moist. Pharynx: Oropharynx is clear. Eyes: Extraocular Movements: Extraocular movements intact. Conjunctiva/sclera: Conjunctivae normal. Pupils: Pupils are equal, round, and reactive to light. Cardiovascular: Comments: Regular rate and rhythm, normal S1-S2, no murmurs noted. Radial pulses 2+ and symmetric. Pulmonary: Effort: Pulmonary effort is normal. No respiratory distress. Breath sounds: Normal breath sounds. No stridor. No wheezing or rhonchi. Abdominal: Comments: The abdomen is soft, nondistended and nontender. There is no rebound tenderness or guarding. Bowel sounds are normal. Skin: General: Skin is warm and dry. Capillary Refill: Capillary refill takes less than 2 seconds. Coloration: Skin is not jaundiced or pale. Findings: No bruising or erythema. Neurological: General: No focal deficit present. Mental Status: Patient is alert and oriented to person, place, and time. Mental status is at baseline. Cranial Nerves: No cranial nerve deficit. Sensory: No sensory deficit. Motor: No weakness. Coordination: Coordination normal. Psychiatric: Mood and Affect: Mood normal. Musculoskeletal: NO edema DATA: CBC: Recent Labs 10/26/23 2322 WBC 9.0 RBC 5.52* HGB 12.5 HCT 39.4 MCV 71.4* RDW 18.0* PLT 176 BMP: Recent Labs 10/26/23 2322 NA 135 K 3.5 CL 100 CO2 22 BUN 5* CREATININE 0.61 GLUCOSE 74 CALCIUM 8.6 ANIONGAP 13 LIVER PROFILE: Recent Labs 10/26/23 2322 AST 432* ALT 274* BILITOT 3.2* ALKPHOS 595* PROT 7.2 PT/INR: No results for input(s): PROTIME, INR in the last 72 hours. CARDIAC ENZYMES: No results for input(s): TROPONINI in the last 72 hours. Procalcitonin: No results found for: PROCAL Urine Culture: Results for orders placed or performed during the hospital encounter of 06/03/23 Urine culture Specimen: Urine, Clean Catch Result Value Ref Range Urine Culture (A) 10,000-50,000 CFU/mL Streptococcus agalactiae (Group B) Urine Culture >100,000 CFU/mL Aerococcus urinae (A) COVID-19 PCR: No results for input(s): COVID19 in the last 72 hours. I reviewed: [x] laboratory results [x] radiographic results At the time of today's encounter. Pt was advised of the results. Data: (CAT1) Clinical information was necessarily obtained from an independent historian. (LOW: 2x CAT1 or independent historian MOD: 3x CAT1 or 1x CAT3 EXTENSIVE: 3x CAT1 and 1x CAT3) Assessment Discussed management with the ED provider and agree with hospitalization. Acute, acute on chronic, unstable/uncontrolled chronic problems/diagnoses: Acute pancreatitis Elevated transaminase Nausea Anorexia Stable chronic problems affecting care, new non-acute diagnoses: History of anemia Atrial fibrillation Incontinence Plan As a result of the above findings & factors, the following mgmt was pursued: -Admit the patient to the medical floor Will give the patient clear liquids Gentle hydration Monitor LFTs Will avoid use of Tylenol due to abnormal liver function panel Morphine for severe pain Zofran as needed for nausea vomiting resume rest of medications from home - am labs, replace lytes prn - PT/OT/CM/SW - delirium precautions: increase activity - DVT prophylaxis: enoxaparin and encourage ambulation Complexity: Acute illness with systemic symptoms (MOD). Risk: Admission to hospital-level care was considered or occurred (HIGH). Advance Directive: Prior Anticipated Discharge - Date - 10/28/23 - Location - Home - Pending the following -clinical improvement hepatitis Total time spent (which include face to face and non face to face encounters) : 40 minutes. Toxic drug monitoring/narrow therapeutic index drug monitoring : # Drug name : Lovenox # Route administered : Subcutaneous # Method of monitoring : CBC Extended Emergency Contact Information Primary Emergency Contact: [facility] Mobile Relation: Partner Secondary Emergency Contact: Aliyah Peterson Mobile Relation: Mother [employer] Anne Marie Perezley : 1995 Primary Care Physician: Xenia Lane The patient and/or family/surrogate voluntarily agreed to participate in ACP services. Patient s cognitive capacity: AOX3 Code Status: [x_] [FULL CODE - Continue all advanced life support: CPR,intubation,invasive procedures] [_] [DNR-CCA - DO NOT do CPR, intubation] [_] [DNR-NAVAL MARINE ENGINEER - Comfort care only] [_] DNR form [was/was not] signed Summary of discussion: The patient health care POA/ surrogate is the following: Patient. [Condition that instigated the ACP on this DOS, relevant PMH, functional status, goals of care, andwhom this was discussed with including names and relationship to the patient, and any relevant advance care documentation discussion] I answered all the patient/family questions that I could within the range and scope of the current medical situation. We discussed the medical conditions, risks, benefits, outcomes, and goals of careat this time for the patient's medical issues at hand in the face of the patient's chronic issues and current presentation. Total time spent: 5 minutes were spent discussing the patient's resuscitation status, advance care planning, and end of life care, with patient and/or family/surrogate. Zeenat Gentile MD Division of Hospitalist Medicine [facility] Phone: [phone] 498-846409-04-2024 [facility]09-04-[facility]24 History and physical note* Zeenat Gentile MD - 10/27/2023 1:42 AM EDT Attending History and Physical Admit Date: 10/26/2023 PCP: Xenia Lane CHIEF COMPLAINT: Abdominal pain Reason for Admission: Acute pancreatitis History Obtained From: patient HISTORY OF PRESENT ILLNESS: Anne Marie is a 28 y.o. female with past medical history significant for anemia, atrial fibrillation, Listerman expressive disorder, sleep apnea who presented to the emergency room with complaint of abdominal pain, Fever which has been going on intermittently for past 1 week. Patient fever broke today. She was also having associated nausea and anorexia. Patient was seen and evaluated the emergency room to days ago. CT abdomen pelvis at that time showed possible mild pancreatitis. Patient lipase level was within normal limits. Patient was not having any epigastric pain though liver function panelwere elevated along with alkaline phosphatase. Patient was reevaluated and alkaline phosphatase andLFTs are trending further up. Patient is admitted to the hospital for acute pancreatitis, nausea and anorexia with elevated LFT Past Medical History: Past Medical History: Diagnosis Date Anemia Atrial fibrillation (HCC) 2 episodes Back pain COVID-19 vaccine series completed 10/2020 Daytime sleepiness 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 Memo Duke / Ernst Chavez [facility] - inguinal hernia LAP GASTRIC BYPASS/SANDRA-EN-Y (HISTORICAL) 05/10/2023 [facility] - Dr. Campbell LAP,CHOLECYSTECTOMY (HISTORICAL) 2009 Dr. Memo Duke / rEnst Chavez [facility] UPPER GASTROINTESTINAL ENDOSCOPY Social History: Social History Socioeconomic History Marital status: Significant Other Spouse name: Not on file Number of children: Not on file Years of education: Not on file Highest education level: Not on file Occupational History Not on file Tobacco Use Smoking status: Never Smokeless tobacco: Never Vaping Use Vaping status: Never Used Substance and Sexual Activity Alcohol use: Not Currently Drug use: Never Sexual activity: Yes Partners: Male control/protection: I.U.D. Other Topics Concern Not on file Social History Narrative Not on file Social Determinants of Health Financial Resource Strain: Low Risk (05/19/2023) Overall Financial Resource Strain (CARDIA) Difficulty of Paying Living Expenses: Not hard at all Food Insecurity: No Food Insecurity (05/19/2023) Hunger Vital Sign Worried About Running Out of Food in the Last Year: Never true Ran Out of Food in the Last Year: Never true Transportation Needs: No Transportation Needs (05/19/2023) PRAPARE - Transportation Lack of Transportation (Medical): No Lack of Transportation (Non-Medical): No Physical Activity: Inactive (05/19/2023) Exercise Vital Sign Days of Exercise per Week: 0 days Minutes of Exercise per Session: 0 min Stress: No Stress Concern Present (05/19/2023) [employer] - Occupational Stress Questionnaire Feeling of Stress : Only a little Social Connections: Socially Isolated (05/19/2023) Social Connection and Isolation Panel [NHANES] Frequency of Communication with Friends and Family: More than three times a week Frequency of Social Gatherings with Friends and Family: More than three times a week Attends [employer] Services: Never Active Member of Clubs or Organizations: Patient unable to answer Attends Club or Organization Meetings: Never Marital Status: Never Intimate Partner Violence: Not At Risk (06/04/2023) Humiliation, Afraid, Rape, and Kick questionnaire Fear of Current or Ex-Partner: No Emotionally Abused: No Physically Abused: No Sexually Abused: No Housing Stability: Low Risk (05/19/2023) Housing Stability Vital Sign Unable to Pay for Housing in the Last Year: No Number of Places Lived in the Last Year: 1 Unstable Housing in the Last Year: No Family History: Family History Problem Relation Name Age of Onset Cancer Mother Hypertension Mother Obesity Mother Heart disease Father Obesity Father Cancer Maternal Grandmother Heart disease Maternal Grandmother Stroke Maternal Grandfather Hypertension Maternal Grandfather Heart disease Maternal Grandfather Diabetes Maternal Grandfather Obesity Maternal Grandfather Anesthesia problems Maternal Grandfather Medications Prior to Admission: No current facility-administered medications on file prior to encounter. Current Outpatient Medications on File Prior to Encounter Medication Sig Dispense Refill calcium citrate 250 MG tablet Take 2 tablets (500 mg) by mouth 3 times daily. Take 2 tablets by mouth three times daily. 180 tablet 11 Cyanocobalamin (Vitamin B-12) [address] 1 Dose under the tongue daily. ferrous sulfate 325 (65 Fe) MG tablet Take 1 tablet (325 mg) by mouth 2 times daily. 30 tablet 3 flecainide (Tambocor) 50 MG tablet Take 3 tablets (150 mg) by mouth Once as needed (Take 3 pills asneeded for episodes of atrial fibrillation). 30 tablet 3 levonorgestrel (Mikie) 13.5 MG IUD by IntraUTERine route Once. magnesium 30 MG tablet Take 30 mg by mouth 2 times daily. metoprolol tartrate (Lopressor) 25 MG tablet Take 1 tablet (25 mg) by mouth 2 times daily. 60 tablet 11 omeprazole (PriLOSEC) [address] capsule Take 1 capsule (20 mg) by mouth daily. Do not crush or chew.90 capsule 1 Pediatric Multivitamins-Iron (FLINTSTONES PLUS IRON PO) Take 2 tablets by mouth daily. Respiratory Therapy Supplies (CareTouch 2 CPAP Hose Dominatrix) misc 10 cm h20 thiamine (Vitamin B-1) 50 MG tablet Take 1 tablet (50 mg) by mouth daily. Take 1 tablet by mouth daily. 30 tablet 11 VITAMIN D, CHOLECALCIFEROL, PO Take 4,000 Int'l Units by mouth daily. Allergies: Allergies Allergen Reactions Nsaids S/P BARIATRIC SURGERY REVIEW OF SYSTEMS: Constitutional: Negative for fever, chills, activity change and unexpected weight change. HEENT: Negative for congestion, postnasal drip and sneezing. Eyes: Negative for itching and visual disturbance. Respiratory: Negative for apnea, cough, choking, chest tightness, shortness of breath, wheezing andstridor. Cardiovascular: Negative for chest pain. Gastrointestinal: Abdominal pain, nausea Genitourinary: Negative for dysuria, frequency and flank pain. Musculoskeletal: Negative for myalgias and joint swelling. Skin: Negative for rash. Neurological: Negative for dizziness, tremors, seizures, syncope, facial asymmetry, speech difficulty, weakness, numbness and headaches. Hematological: Negative for adenopathy. Psychiatric/Behavioral: Negative for suicidal ideas, behavioral problems, self- injury and dysphoricmood. Vitals: BP (!) 174/125 Pulse 96 Temp 37.1 C (98.8 F) (Temporal) Resp 18 Ht 5' 6 (1.676 m) Wt (!)305 lb (138 kg) SpO2 99% BMI 49.23 kg/m BMI Classification: Morbidly Obese (>40.0) Pulse Ox: SpO2 Av % Min: 99 % Max: 99 % Supplemental O2: PHYSICAL EXAM: Constitutional: General: Patient is not in acute distress. Appearance: Normal appearance. HENT: Head: Normocephalic and atraumatic. Right Ear: External ear normal. Left Ear: External ear normal. Mouth/Throat: Mouth: Mucous membranes are moist. Pharynx: Oropharynx is clear. Eyes: Extraocular Movements: Extraocular movements intact. Conjunctiva/sclera: Conjunctivae normal. Pupils: Pupils are equal, round, and reactive to light. Cardiovascular: Comments: Regular rate and rhythm, normal S1-S2, no murmurs noted. Radial pulses 2+ and symmetric. Pulmonary: Effort: Pulmonary effort is normal. No respiratory distress. Breath sounds: Normal breath sounds. No stridor. No wheezing or rhonchi. Abdominal: Comments: The abdomen is soft, nondistended and nontender. There is no rebound tenderness or guarding. Bowel sounds are normal. Skin: General: Skin is warm and dry. Capillary Refill: Capillary refill takes less than 2 seconds. Coloration: Skin is not jaundiced or pale. Findings: No bruising or erythema. Neurological: General: No focal deficit present. Mental Status: Patient is alert and oriented to person, place, and time. Mental status is at baseline. Cranial Nerves: No cranial nerve deficit. Sensory: No sensory deficit. Motor: No weakness. Coordination: Coordination normal. Psychiatric: Mood and Affect: Mood normal. Musculoskeletal: NO edema DATA: CBC: Recent Labs 10/26/23 2322 WBC 9.0 RBC 5.52* HGB 12.5 HCT 39.4 MCV 71.4* RDW 18.0* PLT 176 BMP: Recent Labs 10/26/23 2322 NA 135 K 3.5 CL 100 CO2 22 BUN 5* CREATININE 0.61 GLUCOSE 74 CALCIUM 8.6 ANIONGAP 13 LIVER PROFILE: Recent Labs 10/26/23 2322 AST 432* ALT 274* BILITOT 3.2* ALKPHOS 595* PROT 7.2 PT/INR: No results for input(s): PROTIME, INR in the last 72 hours. CARDIAC ENZYMES: No results for input(s): TROPONINI in the last 72 hours. Procalcitonin: No results found for: PROCAL Urine Culture: Results for orders placed or performed during the hospital encounter of 06/03/23 Urine culture Specimen: Urine, Clean Catch Result Value Ref Range Urine Culture (A) 10,000-50,000 CFU/mL Streptococcus agalactiae (Group B) Urine Culture >100,000 CFU/mL Aerococcus urinae (A) COVID-19 PCR: No results for input(s): COVID19 in the last 72 hours. I reviewed: [x] laboratory results [x] radiographic results At the time of today's encounter. Pt was advised of the results. Data: (CAT1) Clinical information was necessarily obtained from an independent historian. (LOW: 2x CAT1 or independent historian MOD: 3x CAT1 or 1x CAT3 EXTENSIVE: 3x CAT1 and 1x CAT3) Assessment Discussed management with the ED provider and agree with hospitalization. Acute, acute on chronic, unstable/uncontrolled chronic problems/diagnoses: Acute pancreatitis Elevated transaminase Nausea Anorexia Stable chronic problems affecting care, new non-acute diagnoses: History of anemia Atrial fibrillation Incontinence Plan As a result of the above findings & factors, the following mgmt was pursued: -Admit the patient to the medical floor Will give the patient clear liquids Gentle hydration Monitor LFTs Will avoid use of Tylenol due to abnormal liver function panel Morphine for severe pain Zofran as needed for nausea vomiting resume rest of medications from home - am labs, replace lytes prn - PT/OT/CM/SW - delirium precautions: increase activity - DVT prophylaxis: enoxaparin and encourage ambulation Complexity: Acute illness with systemic symptoms (MOD). Risk: Admission to hospital-level care was considered or occurred (HIGH). Advance Directive: Prior Anticipated Discharge - Date - 10/28/23 - Location - Home - Pending the following -clinical improvement hepatitis Total time spent (which include face to face and non face to face encounters) : 40 minutes. Toxic drug monitoring/narrow therapeutic index drug monitoring : # Drug name : Lovenox # Route administered : Subcutaneous # Method of monitoring : CBC Extended Emergency Contact Information Primary Emergency Contact: Dano Orellana [facility] Mobile Relation: Partner Secondary Emergency Contact: Aliyah Peterson Mobile Relation: Mother [employer]ING Anne Marie Peterson : 1995 Primary Care Physician: Xenia Lane The patient and/or family/surrogate voluntarily agreed to participate in ACP services. Patient s cognitive capacity: AOX3 Code Status: [x_] [FULL CODE - Continue all advanced life support: CPR,intubation,invasive procedures] [_] [DNR-CCA - DO NOT do CPR, intubation] [_] [DNR-NAVAL MARINE ENGINEER - Comfort care only] [_] DNR form [was/was not] signed Summary of discussion: The patient health care POA/ surrogate is the following: Patient. [Condition that instigated the ACP on this DOS, relevant PMH, functional status, goals of care, andwhom this was discussed with including names and relationship to the patient, and any relevant advance care documentation discussion] I answered all the patient/family questions that I could within the range and scope of the current medical situation. We discussed the medical conditions, risks, benefits, outcomes, and goals of careat this time for the patient's medical issues at hand in the face of the patient's chronic issues and current presentation. Total time spent: 5 minutes were spent discussing the patient's resuscitation status, advance care planning, and end of life care, with patient and/or family/surrogate. Zeenat Gentile MD Division of Hospitalist Medicine [facility] documented in this [facility]09-03-2024 Emergency department Note* Fernando Vallejo DO - 10/26/2023 8:06 PM EDT Emergency Department Encounter [facility] ED Patient: Anne Marie Peterson : 1995 Date of Evaluation: 10/26/2023 ED Supervising Physician: Fernando Vallejo DO I personally saw Anne Marie Peterson and made/approved the management plan and take responsibility for the patient management. This will serve as my Supervisory note and shared attestation. I did perform a substantive portion of the visit including all aspects of the Medical Decision Making. I wore appropriate PPE for the entirety of this encounter. In brief, Anne Marie Peterson is a 28 y.o. that presents to the emergency department with persistent nausea and generalized malaise of the past week. States 1 week ago she first noticed the fever but states the fever just broke today. States she also had some headache and neck pain and initial symptom onset last week but none currently. Has persistent nausea and malaise today. Was worked up 2 days ago at outlying facility, CT scan of the abdomen pelvis showed possible pancreatitis however her lipase was normal and she is not having any epigastric pain. They did note that she had a positive blood culture of staph epidermis which was likely contaminant. Also had a mild transaminitis at that time of unclear etiology. Focused exam: Alert and oriented 4, no acute distress, nontoxic appearing, Pulm: clear to auscultation bilaterally, Cardiac: regular rate and rhythm, Abdomen: soft nontender, Neuro: no focal motor orsensory deficits. Full range of motion of the neck and back Brief ED course/MDM: Patient presents with generalized malaise and persistent nausea. Did have a fever for a week which is currently resolved as of today. Considered meningitis however patient no longer has headache or neck pain has full range of motion of the neck and no meningismus. Considered mono with her worsening LFTs however mono was negative. AST 432, ALT 272, T. bili 3.2, alk phos 595. No leukocytosis. Hepatitis panel added on, acetaminophen level was negative. Urinalysis with RBCs WBCs with few bacteria. Patient is not having any urinary symptoms. Doubt infected at this time, will send for cultures. Blood cultures were obtained. Patient has had prior cholecystectomy as well as gastric bypass surgery and is not having any abdominal pains and no further abdominal imaging indicatedas she had a negative CT scan from 2 days ago. Will admit for her intractable nausea, myalgias and worsening LFTs. Notes from outlying facility reviewed from 2 days ago where the patient had blood cultures which were likely contaminant he was CT scan abdomen pelvis which showed questionable mild pancreatitis however her lipase was normal at that time. Care time 35 minutes Diagnostics interpreted by me: none I personally discussed the patient's management with other clinicians: Admitting team [facility] All diagnostic, treatment, and disposition decisions were made by myself in conjunction with the MARY. For all further details of the patient's emergency department visit, please see their documentation. (Comment: Please note this report has been produced using speech recognition software and may contain errors related to that system including errors in grammar, punctuation, and spelling, as well as words and phrases that may be inappropriate. If there are any questions or concerns please feel freeto contact the dictating provider for clarification.) Fernando Vallejo DO [employer] Fernando Vallejo DO 10/27/23 0254 documented in this [facility]09-03-2024 Physician Emergency department Note* Fernando Vallejo DO - 10/26/2023 8:06 PM EDT Emergency Department Encounter [facility] ED Patient: Anne Marie Peterson : 1995 Date of Evaluation: 10/26/2023 ED Supervising Physician: Fernando Vallejo DO I personally saw Anne Marie Peterson and made/approved the management plan and take responsibility for the patient management. This will serve as my Supervisory note and shared attestation. I did perform a substantive portion of the visit including all aspects of the Medical Decision Making. I wore appropriate PPE for the entirety of this encounter. In brief, Anne Marie Peterson is a 28 y.o. that presents to the emergency department with persistent nausea and generalized malaise of the past week. States 1 week ago she first noticed the fever but states the fever just broke today. States she also had some headache and neck pain and initial symptom onset last week but none currently. Has persistent nausea and malaise today. Was worked up 2 days ago at [facility] facility, CT scan of the abdomen pelvis showed possible pancreatitis however her lipase was normal and she is not having any epigastric pain. They did note that she had a positive blood culture of staph epidermis which was likely contaminant. Also had a mild transaminitis at that time of unclear etiology. Focused exam: Alert and oriented 4, no acute distress, nontoxic appearing, Pulm: clear to auscultation bilaterally, Cardiac: regular rate and rhythm, Abdomen: soft nontender, Neuro: no focal motor orsensory deficits. Full range of motion of the neck and back Brief ED course/MDM: Patient presents with generalized malaise and persistent nausea. Did have a fever for a week which is currently resolved as of today. Considered meningitis however patient no longer has headache or neck pain has full range of motion of the neck and no meningismus. Considered mono with her worsening LFTs however mono was negative. AST 432, ALT 272, T. bili 3.2, alk phos 595. No leukocytosis. Hepatitis panel added on, acetaminophen level was negative. Urinalysis with RBCs WBCs with few bacteria. Patient is not having any urinary symptoms. Doubt infected at this time, will send for cultures. Blood cultures were obtained. Patient has had prior cholecystectomy as well as gastric bypass surgery and is not having any abdominal pains and no further abdominal imaging indicatedas she had a negative CT scan from 2 days ago. Will admit for her intractable nausea, myalgias and worsening LFTs. [facility] where the patient had blood cultures which were likely contaminant he was CT scan abdomen pelvis which showed questionable mild pancreatitis however her lipase was normal at that time. Care time 35 minutes Diagnostics interpreted by me: none I personally discussed the patient's management with other clinicians: Admitting team [facility] All diagnostic, treatment, and disposition decisions were made by myself in conjunction with the MARY. For all further details of the patient's emergency department visit, please see their documentation. (Comment: Please note this report has been produced using speech recognition software and may contain errors related to that system including errors in grammar, punctuation, and spelling, as well as words and phrases that may be inappropriate. If there are any questions or concerns please feel freeto contact the dictating provider for clarification.) Fernando Vallejo DO [employer] Fernando Vallejo DO 10/27/23 0254 [id number] Note. MICRO - Microbiology PROCEDURE: Blood Culture (bacterial) [*1] SOURCE: Blood BODY SITE: COLLECTED DATE/TIME: 10/25/2023 15:45 EDT RECEIVED DATE/TIME: 10/26/2023 16:25 EDT START DATE/TIME: 10/26/2023 16:26 EDT FREE TEXT SOURCE: PRELIMINARY REPORTS Preliminary Report [] Verified Date/Time/Personnel: 10/26/2023 16:59 EDT Culture has been received in lab and is no growth to date. Routine cultures are held for 5 days. Performing Locations *1: This test was performed at: [facility], [address] [place] [address], [id number] , [facility] ([place])10-26-2023 Note. MICRO - Microbiology PROCEDURE: Blood Culture (bacterial) [*1] SOURCE: Blood BODY SITE: COLLECTED DATE/TIME: 10/25/2023 16:37 EDT RECEIVED DATE/TIME: 10/26/2023 16:26 EDT START DATE/TIME: 10/26/2023 16:26 EDT FREE TEXT SOURCE: PRELIMINARY REPORTS Preliminary Report [] Verified Date/Time/Personnel: 10/26/2023 16:59 EDT Culture has been received in lab and is no growth to date. Routine cultures are held for 5 days. Performing Locations *1: This test was performed at: [address], [address]- , [facility] ([place])10-26-2023 Note. MICRO - Microbiology PROCEDURE: Blood Culture (bacterial) [*1] SOURCE: Blood BODY SITE: COLLECTED DATE/TIME: 10/24/2023 09:35 EDT RECEIVED DATE/TIME: 10/24/2023 18:04 EDT START DATE/TIME: 10/24/2023 18:04 EDT FREE TEXT SOURCE: FINAL REPORTS Final Report [] Verified Date/Time/Personnel: 10/26/2023 09:59 EDT Staphylococcus coagulase negative Isolated from aerobe and anaerobe bottles. 1 out of 2 sets positive Organism is a potential contaminant. Clinical Significance undetermined. Please contact Microbiology if further work-up is required. PRELIMINARY REPORTS Preliminary Report [] Verified Date/Time/Personnel: 10/24/2023 18:59 EDT Culture has been received in lab and is no growth to date. Routine cultures are held for 5 days. STAINS GSANA [] Verified Date/Time/Personnel: 10/25/2023 21:13 EDT Gram Positive Cocci in clusters GSAER [] Verified Date/Time/Personnel: 10/25/2023 11:37 EDT Gram Positive Cocci in clusters Performing Locations *1: This test was performed at: [address], [address]- , [facility] ([place])10-24-2023 Note. MICRO - Microbiology PROCEDURE: Blood Culture (bacterial) [*1] SOURCE: Blood BODY SITE: COLLECTED DATE/TIME: 10/24/2023 09:38 EDT RECEIVED DATE/TIME: 10/24/2023 18:05 EDT START DATE/TIME: 10/24/2023 18:05 EDT FREE TEXT SOURCE: PRELIMINARY REPORTS Preliminary Report [] Verified Date/Time/Personnel: 10/24/2023 18:59 EDT Culture has been received in lab and is no growth to date. Routine cultures are held for 5 days. Performing Locations *1: This test was performed at: [facility], [address] [place] [address], [id number]- , [facility] ([place])08-23-2023 History of Present illness Narrative* Carmen Hirsch PA-C - 08/23/2023 11:40 AM EDT Visit type: New patient. History of Present Illness: General Pertinent negatives include no chest pain, chills, coughing, fatigue, fever, nausea or vomiting. History of Present Illness: Anne Marie Peterson is a 27 y.o. female patient being seen for MOE follow-up. She was initially seen on 01/25/2023 for evaluation prior to bariatric surgery. Denies hx of underlying lung disease. Denies shortness of breath, coughing, wheezing. Denies hx of seasonal allergies. Endorses hx of sleep apnea, prescribed CPAP 10 cm H2O. She has difficulty remembering to put her CPAP on before she falls asleep. She feels she sleeps worse with CPAP on. Has nasal mask- feels it does not fit well. ESS 5. Nasal pillows ordered at that time. She now returns for interval follow-up. Over the interval, she is s/p bariatric surgery on 05/10/23.Post op course was complicated by acute pancreatitis, requiring admission 06/02-06/10/23. She has lost almost 70 lbs. She feels well today. Breathing has been good, denies shortness of breath, coughing, wheezing, chest tightness. She never got her nasal pillows, and her previous CPAP mask does not fit anymore. She has not worn her CPAP for the past month but feels she is sleeping well. Denies snoring, witness apneas. Denies orthopnea, PND. Denies AM headaches. Daytime sleepiness has resolved. ESS 3. 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 SpO2 <88% for 2.5 minutes. Baseline Exercise tolerance/MMRC score( Bold ) MMRC Dyspnea Scale Grade Description of Breathlessness 0 I only get breathless with strenuous exercise. 1 I get short of breath when hurrying on level ground or walking up a slight hill. 2 On level ground, I walk slower than people of the same age because of breathlessness, or have to stop for breath when walking at my own pace. 3 I stop for breath after walking about 100 yards or after a few minutes on level ground. 4 I am too breathless to leave the house or I am breathless when dressing. 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 Social Determinants of Health Financial Resource Strain: Low Risk (05/19/2023) Overall Financial Resource Strain (CARDIA) Difficulty of Paying Living Expenses: Not hard at all Food Insecurity: No Food Insecurity (05/19/2023) Hunger Vital Sign Worried About Running Out of Food in the Last Year: Never true Ran Out of Food in the Last Year: Never true Transportation Needs: No Transportation Needs (05/19/2023) PRAPARE - Transportation Lack of Transportation (Medical): No Lack of Transportation (Non-Medical): No Physical Activity: Inactive (05/19/2023) Exercise Vital Sign Days of Exercise per Week: 0 days Minutes of Exercise per Session: 0 min Stress: No Stress Concern Present (05/19/2023) [employer] - Occupational Stress Questionnaire Feeling of Stress : Only a little Social Connections: Socially Isolated (05/19/2023) Social Connection and Isolation Panel [NHANES] Frequency of Communication with Friends and Family: More than three times a week Frequency of Social Gatherings with Friends and Family: More than three times a week Attends [employer] Services: Never Active Member of Clubs or Organizations: Patient unable to answer Attends Club or Organization Meetings: Never Marital Status: Never Intimate Partner Violence: Not At Risk (06/04/2023) Humiliation, Afraid, Rape, and Kick questionnaire Fear of Current or Ex-Partner: No Emotionally Abused: No Physically Abused: No Sexually Abused: No Housing Stability: Low Risk (05/19/2023) Housing Stability Vital Sign Unable to Pay for Housing in the Last Year: No Number of Places Lived in the Last Year: 1 Unstable Housing in the Last Year: No Family History: Family History Problem Relation Name Age of Onset Cancer Mother Hypertension Mother Obesity Mother Heart disease Father Obesity Father Cancer Maternal Grandmother Heart disease Maternal Grandmother Stroke Maternal Grandfather Hypertension Maternal Grandfather Heart disease Maternal Grandfather Diabetes Maternal Grandfather Obesity Maternal Grandfather Anesthesia problems Maternal Grandfather ROS: Review of Systems Constitutional: Negative for chills, fatigue and fever. Respiratory: Negative for cough, chest tightness, shortness of breath and wheezing. Cardiovascular: Negative for chest pain, palpitations and leg swelling. Gastrointestinal: Negative for diarrhea, nausea and vomiting. Psychiatric/Behavioral: Negative for sleep disturbance. All other systems reviewed and are negative. Medications: @MEDCMED@ Allergies: Allergies Allergen Reactions Nsaids S/P BARIATRIC SURGERY Vital Signs: BP 126/72 (Patient Position: Sitting, BP Cuff Size: Adult) Comment (BP Location): leftwrist Pulse (!) 114 Resp 18 Ht 5' 6 (1.676 m) Wt (!) 328 lb 3.2 oz (149 kg) SpO2 96% Comment: RA BMI 52.97 kg/m Physical Exam: Physical Exam Constitutional: Appearance: Normal appearance. She is obese. HENT: Head: Normocephalic and atraumatic. Eyes: Extraocular Movements: Extraocular movements intact. Pupils: Pupils are equal, round, and reactive to light. Cardiovascular: Rate and Rhythm: Normal rate and regular rhythm. Heart sounds: Normal heart sounds. Pulmonary: Effort: Pulmonary effort is normal. Breath sounds: Normal breath sounds. No wheezing, rhonchi or rales. Musculoskeletal: Right lower leg: No edema. Left lower leg: No edema. Neurological: Mental Status: She is alert and oriented to person, place, and time. Mental status is at baseline. Psychiatric: Mood and Affect: Mood normal. Speech: Speech normal. Behavior: Behavior normal. Assessment and Plan: Diagnosis Plan 1. MOE (obstructive sleep apnea) Hx of moderate MOE, has not been wearing CPAP since she lost 70 lbs with bariatric surgery. Sleeping well, ESS 3. Will repeat PSG and see if she still requires PAP therapy. - Home sleep test 2. Morbid obesity with BMI of 60.0-69.9, adult (HCC) BMI 52.97, has lost 70 lbs since bariatric surgery in April. Will benefit from continued weight loss. Follow-up per Dr. Campbell. Follow-up: Follow up in about 4 weeks (around 09/20/2023), or if symptoms worsen or fail to improve, for with sleep study. documented in this [facility]07-01-2024 Instructions* Patient Instructions* Kinjal Mane MA - 08/23/2023 11:40 AM EDT YOUR APPOINTMENT TODAY WAS WITH THE [facility], COPD CLINIC, PULMONARY AND SLEEP MEDICINE OFFICE. PLEASE CALL OUR OFFICE AT [phone] IF YOU HAVE NOT RECEIVED YOUR TEST RESULTS 7 DAYS AFTER TESTING IS COMPLETED. PLEASE REMEMBER TO REQUEST REFILLS AT YOUR OFFICE VISITS. PHONE/FAX REQUESTS REQUIRE 48-72 HOURS FOR RESPONSE. A FRIENDLY REMINDER COPAYS ARE DUE AT TIME OF SERVICE. THANK YOU. Our Patients Are Important! We want to improve and you can help. After your visit we want you to feel: Listened to, Respected and have your health care explained. You may receive a survey asking you about your visit. Please complete the survey. We will use your feedback to make improvements. COVID-19 VACCINATION INFORMATION: . [phone] [email or web address] [facility] Central Scheduling [phone] [facility] Sleep Scheduling [phone] documented in this [facility]07-01-2024 History of Present illness Narrative* Meet Tania Colorado MD - 08/23/2023 8:30 AM EDT [facility] Cardiology [facility] [address] [place] [id number] Dept: [phone] Dept Loc: [phone] Visit type: New : 1995 Chief Complaint: Chief Complaint Patient presents with New Patient History of Present Illness: Anne Marie Peterson is a 27 y.o. female with PAF, obesity with bariatric surgery (04/2023), who has episodes of AF every 2-3 months, MOE wears CPAP. She feels palpitations, fast HR, shortness of breath, and feelings like she is going to pass out. She becomes very lethargic. These episodes last between 8-24+ hours. Her most recent episode was while she was admitted for complications from her bariatric surgery. 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 Memo Duke / Ernst Chavez [facility] - inguinal hernia LAP GASTRIC BYPASS/SANDRA-EN-Y (HISTORICAL) 05/10/2023 LRYGB - Dr. Campbell LAP,CHOLECYSTECTOMY (HISTORICAL) 2009 Dr. Memo Duke / Ernst Chavez [facility] UPPER GASTROINTESTINAL ENDOSCOPY Family History Family History Problem Relation Name Age of Onset Cancer Mother Hypertension Mother Obesity Mother Heart disease Father Obesity Father Cancer Maternal Grandmother Heart disease Maternal Grandmother Stroke Maternal Grandfather Hypertension Maternal Grandfather Heart disease Maternal Grandfather Diabetes Maternal Grandfather Obesity Maternal Grandfather Anesthesia problems Maternal Grandfather Social History Social History Tobacco Use Smoking status: Never Smokeless tobacco: Never Vaping Use Vaping status: Never Used Substance Use Topics Alcohol use: Not Currently Drug use: Never Allergies: Allergies Allergen Reactions Nsaids S/P BARIATRIC SURGERY Medications: Current Outpatient Medications: calcium citrate 250 MG tablet, Take 2 tablets (500 mg) by mouth 3 times daily. Take 2 tablets by mouth three times daily., Disp: 180 tablet, Rfl: 11 Cyanocobalamin (Vitamin B-12) 500 MCG sublingual tablet, Place 1 Dose under the tongue daily., Disp: , Rfl: ferrous sulfate 325 (65 Fe) MG tablet, Take 1 tablet (325 mg) by mouth 2 times daily., Disp: 30 tablet, Rfl: 3 levonorgestrel (Mikie) 13.5 MG IUD, by IntraUTERine route Once., Disp: , Rfl: magnesium 30 MG tablet, Take 30 mg by mouth 2 times daily., Disp: , Rfl: metoprolol tartrate (Lopressor) 25 MG tablet, Take 1 tablet (25 mg) by mouth 2 times daily., Disp: 60 tablet, Rfl: 11 omeprazole (PriLOSEC) [address] capsule, Take 1 capsule (20 mg) by mouth daily. Do not crush or chew., Disp: 90 capsule, Rfl: 1 Pediatric Multivitamins-Iron (FLINTSTONES PLUS IRON PO), Take 2 tablets by mouth daily., Disp: , Rfl: Respiratory Therapy Supplies (CareTouch 2 CPAP Hose Dominatrix) misc, 10 cm h20, Disp: , Rfl: thiamine (Vitamin B-1) 50 MG tablet, Take 1 tablet (50 mg) by mouth daily. Take 1 tablet by mouth daily., Disp: 30 tablet, Rfl: 11 VITAMIN D, CHOLECALCIFEROL, PO, Take 4,000 Int'l Units by mouth daily., Disp: , Rfl: flecainide (Tambocor) 50 MG tablet, Take 3 tablets (150 mg) by mouth Once as needed (Take 3 pills as needed for episodes of atrial fibrillation)., Disp: 30 tablet, Rfl: 3 Review of Systems: Review of Systems Constitutional: Negative. HENT: Negative. Eyes: Negative. Respiratory: Positive for apnea (wears cpap). Cardiovascular: Positive for palpitations (when in afib). Gastrointestinal: Negative. Endocrine: Negative. Genitourinary: Negative. Musculoskeletal: Negative. Skin: Negative. Allergic/Immunologic: Negative. Neurological: Positive for dizziness (if she makes position changes too fast). Hematological: Negative. Psychiatric/Behavioral: Negative. Physical Examination: Vitals: Vitals: 08/23/23 0836 BP: (!) 122/92 BP Location: Left arm Patient Position: Sitting BP Cuff Size: Adult Pulse: 73 SpO2: 98% Weight: (!) 327 lb 6.4 oz (149 kg) Height: 5' 6 (1.676 m) Body mass index is 52.84 kg/m . Physical Exam Constitutional: Appearance: Normal appearance. She is obese. HENT: Head: Normocephalic and atraumatic. Mouth/Throat: Mouth: Mucous membranes are moist. Eyes: Extraocular Movements: Extraocular movements intact. Cardiovascular: Rate and Rhythm: Normal rate and regular rhythm. Pulses: Normal pulses. Heart sounds: Normal heart sounds. Pulmonary: Effort: Pulmonary effort is normal. Breath sounds: Normal breath sounds. Abdominal: Palpations: Abdomen is soft. Musculoskeletal: General: Normal range of motion. Cervical back: Normal range of motion and neck supple. Skin: General: Skin is warm and dry. Neurological: General: No focal deficit present. Mental Status: She is alert and oriented to person, place, and time. Psychiatric: Mood and Affect: Mood normal. Behavior: Behavior normal. Thought Content: Thought content normal. Judgment: Judgment normal. Laboratory Tests: Lab Results Component Value Date WBC 7.8 08/11/2023 HGB 11.7 08/11/2023 HCT 38.7 08/11/2023 MCV 75.7 (L) 08/11/2023 PLT 311 08/11/2023 Lab Results Component Value Date GLUCOSE 82 08/11/2023 CALCIUM 9.0 08/11/2023 NA 138 08/11/2023 K 3.9 08/11/2023 CO2 25 08/11/2023 CL 104 08/11/2023 BUN 7 08/11/2023 CREATININE 0.54 08/11/2023 @LASTP@ Lab Results Component Value Date CHOL 114 06/08/2023 CHOL 184 12/14/2022 Lab Results Component Value Date TRIG 142 06/08/2023 TRIG 103 06/07/2023 TRIG 91 12/14/2022 Lab Results Component Value Date HDL 18 (L) 06/08/2023 HDL 30 (L) 12/14/2022 Lab Results Component Value Date LDLCALC 68 06/08/2023 LDLCALC 136 (H) 12/14/2022 No results found for: BNP Cardiac Tests: ECG: Normal Sinus Rhythm, RSR' Last Echo: 12/2022 Left Ventricle: Left ventricle size is normal. LVIDd is 4.7 cm. Mildly increased wall thickness. IVSd is 1.0 cm. LVPWd is 1.2 cm. Normal left ventricular systolic function. EF by 2D Simpsons Biplane is 65%. Normal wall motion. Right Ventricle: Right ventricle size is normal. Normal systolic function. Interatrial Septum: Grade I Positive (1 to 9 bubbles). Agitated saline study was positive without provocation. Right to left shunt was noted. Aorta: Normal sized sinuses of Valsalva and ascending aorta. Pericardium: No pericardial effusion. No significant valvular abnormalities. Assessment and Plan: 1. Paroxysmal atrial fibrillation (HCC) Paroxysmal Atrial Fibrillation - [id number] 1 (female) - not on OAC - Her most recent episode was during a time of stress/surgical complication. She has lost 70lbs since her surgery and is compliant with her CPAP. For now, we will just wait and see if her AF recurs given that she has made significant lifestyle changes. - We can pursue a pill in the pocket approach with flecainide - If she continues to have episodes, we will discuss ablation in more detail given her young age Follow up in 6 months with our MARY. documented in this [facility]06-19-2024 History of Present illness Narrative* Miley Moise PA-C - 08/11/2023 12:45 PM EDT Images from the original note were not included. HPI, PHYSICAL EXAMINATION & PLAN POST-OP HPI: Patient here today for 3 month post-weight loss surgery follow up The patient is feeling well. Denies nausea, vomiting, dysphagia, or any GERD Sx. Currently is on any PPI. Patient states diet and exercise is going well. Currently is eating 65-75 gm/day protein, andis compliant with prescribed multivitamins and supplements. Eating 5-6 times per day. Fluid intake 64 ounces daily. Reports occasional lightheadedness/dizziness with position changes and one episode of syncope. On metoprolol she is monitoring BP and takes prn. BM variable but improved from prior to surgery. Exercise: walking, workout at gym Times per week: 5 Min per session: 25-120 Review of Systems Constitutional: Negative for chills and fever. HENT: Negative for congestion, sore throat and trouble swallowing. Respiratory: Negative for cough and shortness of breath. Cardiovascular: Negative for chest pain and palpitations. Gastrointestinal: Negative for abdominal pain, constipation, diarrhea, nausea and vomiting. Genitourinary: Negative for dysuria and frequency. Musculoskeletal: Negative for arthralgias and back pain. Skin: Negative for color change. Neurological: Positive for dizziness and light-headedness. Psychiatric/Behavioral: The patient is not nervous/anxious. Vital signs are stable. Labs were Completed. All labs were: normal but a few still pending Physical Examination: BP 114/84 Pulse 101 Temp 36.1 C (96.9 F) Resp 18 Ht 5' 5.25 (1.657 m) Comment: bcc Wt (!) 335 lb 12.8 oz (152 kg) Comment: [facility] BMI 55.45 kg/m General: This patient is awake, alert, and oriented, and is in no apparent distress. Respiratory: Non-labored breathing Abdomen: Obese, soft, non-tender, non-distended without masses/ No evidence of abdominal hernia / Incisions consistent with previous surgeries. Head and Neck: Obese, normocephalic and atraumatic Extremities: No cyanosis, clubbing or edema/ No calf tenderness/No restrictions of movement, is ambulatory without assistance. Skin: No rashes or lesions noted. 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 4). Follow up at 6 month office visit with standard labs 5). Psych concerns: no 6). Patient is a woman of childrearing age- 18-50. We discussed the importance of contraception during the first 12-18 months post op, and we discussed that fertility will increase following the procedure. Advised patient to discuss with her OBGYN regarding contraception but that oral contraceptiveefficacy is reduced in LRYGB patients and as a result the use of a vaginal ring, transdermal patch,IUD or progestin only implant or injection is recommended. Patient counseled with good understanding verbalized. Has IUD. 7). Weight loss: Post-op Weight Metrics: %EBWL: % EBWL: 24% Weight Change Since Last Visit: Weight Change: -26.6 lbs Weight Change from Highest Pre-op Weight: Total Weight Change: -67.2 lbs HTN/lightheadedness -on metoprolol, she has some symptoms of orthostatic hypotension so she is monitoring BP at home and taking metoprolol prn -discussed increasing electrolyte rich fluids and take caution to make position changes slowly MOE -compliant w CPAP/BiPAP Orders Placed This Encounter Procedures Zinc (Sendout) These orders are set for an approximate date - they can be drawn up to 3 months prior to the Expected Date on this Req. Please send results to: [address] [facility] [place] [id number] - [phone] And if not done at a [facility], please send to: [address], [address] Patient Name: Anne Marie Peterson - 1995 Order Created by : Vivian Pool Standing Status: Future Number of Occurrences: 1 Standing Expiration Date: 08/05/2024 Folate These orders are set for an approximate date - they can be drawn up to 3 months prior to the Expected Date on this Req. Please send results to: [address] [facility] [place] [id number] - [phone] And if not done at a [facility] Facility, please send to: [address], [address] Patient Name: Anne Marie Peterson - 1995 Order Created by : Vivian Pool Standing Status: Future Number of Occurrences: 1 Standing Expiration Date: 08/05/2024 Iron These orders are set for an approximate date - they can be drawn up to 3 months prior to the Expected Date on this Req. Please send results to: [address] [facility] [place] [id number] - [phone] And if not done at a [facility] Facility, please send to: [address], [address] Patient Name: Anne Marie Tran 1995 Order Created by : Vivian Pool Standing Status: Future Number of Occurrences: 1 Standing Expiration Date: 08/05/2024 Ferritin These orders are set for an approximate date - they can be drawn up to 3 months prior to the Expected Date on this Req. Please send results to: [address] [address] [facility] [place] [id number] - [phone] And if not done at a [facility], please send to: [address], [address] Patient Name: Anne Marie Tran 1995 Order Created by : Vivian Pool Standing Status: Future Number of Occurrences: 1 Standing Expiration Date: 08/05/2024 Magnesium These orders are set for an approximate date - they can be drawn up to 3 months prior to the Expected Date on this Req. Please send results to: [facility] [place] [id number] - [phone] And if not done at a [facility], please send to: [address], [address] Patient Name: Anne Marie Tran 1995 Order Created by : Vivian Pool Standing Status: Future Number of Occurrences: 1 Standing Expiration Date: 08/05/2024 Vitamin D Deficiency Screening (Vit D 25) These orders are set for an approximate date - they can be drawn up to 3 months prior to the Expected Date on this Req. Please send results to: [facility] [place] [phone] - [phone] And if not done at a [facility], please send to: [address], [address] Patient Name: Anne Marie Tran 1995 Order Created by : Vivian Pool Standing Status: Future Number of Occurrences: 1 Standing Expiration Date: 08/05/2024 Vitamin B12 These orders are set for an approximate date - they can be drawn up to 3 months prior to the Expected Date on this Req. Please send results to: [facility] [place] [id number] - [phone] And if not done at a [facility], please send to: [address], [address] Patient Name: Anne Marie Tran 1995 Order Created by : Vivian Pool Standing Status: Future Number of Occurrences: 1 Standing Expiration Date: 08/05/2024 Vitamin B1, whole blood ([facility]) These orders are set for an approximate date - they can be drawn up to 3 months prior to the Expected Date on this Req. Please send results to: [facility] [place] [phone] - [phone] And if not done at a [facility], please send to: [address], [address] Patient Name: Anne Marie Tran 1995 Order Created by : Vivian Pool Standing Status: Future Number of Occurrences: 1 Standing Expiration Date: 08/05/2024 Lipid panel These orders are set for an approximate date - they can be drawn up to 3 months prior to the Expected Date on this Req. Please send results to: [facility] [place] [id number] - [phone] And if not done at a [facility], please send to: [address], [address] Patient Name: Anne Marie Tran 1995 Order Created by : Vivian Pool Standing Status: Future Number of Occurrences: 1 Standing Expiration Date: 08/05/2024 Comprehensive metabolic panel These orders are set for an approximate date - they can be drawn up to 3 months prior to the Expected Date on this Req. Please send results to: [address] [place] [phone] - [phone] And if not done at a [facility], please send to: [address], [address] Patient Name: Anne Marie Peterson - 1995 Order Created by : Vivian Pool Standing Status: Future Number of Occurrences: 1 Standing Expiration Date: 08/05/2024 CBC These orders are set for an approximate date - they can be drawn up to 3 months prior to the Expected Date on this Req. Please send results to: [facility] [address] [place] [phone] - [phone] And if not done at a [facility], please send to: [facility] - [address] [place] [address], [address] Patient Name: Anne Marie Tran 1995 Order Created by : Vivian Pool Standing Status: Future Number of Occurrences: 1 Standing Expiration Date: 08/05/2024 Medications ordered during this encounter: Outpatient Encounter Medications as of 08/11/2023 Medication Sig Dispense Refill Cyanocobalamin (Vitamin B-12) [address] 1 Dose under the tongue daily. ferrous sulfate 325 (65 Fe) MG tablet Take 1 tablet (325 mg) by mouth 2 times daily. 30 tablet 3 levonorgestrel (Mikie) 13.5 MG IUD by IntraUTERine route Once. magnesium 30 MG tablet Take 30 mg by mouth 2 times daily. metoprolol tartrate (Lopressor) 25 MG tablet Take 1 tablet (25 mg) by mouth 2 times daily. 60 tablet 11 omeprazole (PriLOSEC) [address] capsule Take 1 capsule (20 mg) by mouth daily. Do not crush or chew.90 capsule 1 Pediatric Multivitamins-Iron (FLINTSTONES PLUS IRON PO) Take 2 tablets by mouth daily. Respiratory Therapy Supplies (CareTouch 2 CPAP Hose Dominatrix) misc 10 cm h20 VITAMIN D, CHOLECALCIFEROL, PO Take 4,000 Int'l Units by mouth daily. [DISCONTINUED] calcium carbonate (Tums) 500 MG chewable tablet Chew 500 mg 3 times daily. calcium citrate 250 MG tablet Take 2 tablets (500 mg) by mouth 3 times daily. Take 2 tablets by mouth three times daily. 180 tablet 11 thiamine (Vitamin B-1) 50 MG tablet Take 1 tablet (50 mg) by mouth daily. Take 1 tablet by mouth daily. 30 tablet 11 [DISCONTINUED] sulfamethoxazole-trimethoprim (Bactrim DS) 800-160 MG tablet Take 1 tablet by mouth 2 times daily. No facility-administered encounter medications on file as of 08/11/2023. Visit Diagnoses: 1. Intestinal malabsorption, unspecified type 2. Deficiency of multiple nutrient elements 3. MOE on CPAP 4. Primary hypertension 5. Morbid obesity with BMI of 50.0-59.9, adult (HCC) 6. History of Sandra-en-Y gastric bypass 7. Lightheadedness Current Medications: Patient's Medications New Prescriptions CALCIUM CITRATE 250 MG TABLET Take 2 tablets (500 mg) by mouth 3 times daily. Take 2 tablets by mouth three times daily. THIAMINE (VITAMIN B-1) 50 MG TABLET Take 1 tablet (50 mg) by mouth daily. Take 1 tablet by mouth daily. Previous Medications CYANOCOBALAMIN (VITAMIN B-12) [address] 1 Dose under the tongue daily. FERROUS SULFATE 325 (65 FE) MG TABLET Take 1 tablet (325 mg) by mouth 2 times daily. LEVONORGESTREL (MIKIE) 13.5 MG IUD by IntraUTERine route Once. MAGNESIUM 30 MG TABLET Take 30 mg by mouth 2 times daily. METOPROLOL TARTRATE (LOPRESSOR) 25 MG TABLET Take 1 tablet (25 mg) by mouth 2 times daily. OMEPRAZOLE (PRILOSEC) [address] CAPSULE Take 1 capsule (20 mg) by mouth daily. Do not crush or chew. PEDIATRIC MULTIVITAMINS-IRON (FLINTSTONES PLUS IRON PO) Take 2 tablets by mouth daily. RESPIRATORY THERAPY SUPPLIES (CARETOUCH 2 CPAP HOSE PRODUCE SHIPPER) MISC 10 cm h20 VITAMIN D, CHOLECALCIFEROL, PO Take 4,000 Int'l Units by mouth daily. Modified Medications No medications on file Discontinued Medications CALCIUM CARBONATE (TUMS) 500 MG CHEWABLE TABLET Chew 500 mg 3 times daily. SULFAMETHOXAZOLE-TRIMETHOPRIM (BACTRIM DS) 800-160 MG TABLET Take 1 tablet by mouth 2 times daily. * Peggy Friedman MA - 08/11/2023 12:45 PM EDT [facility] PROGRESS NOTE POST WEIGHT LOSS SURGERY FOLLOW UP Patient: Anne Marie Peterson Service Date: 08/11/2023 Patient is 3 month(s) s/p RnY Gastric Bypass Today's Metrics: Post-Surgical Weight Loss Date: 08/11/23 Height: 5' 5.25 (165.7 cm) Weight: 335 lb 12.8 oz (152 kg) BMI: 55.45 Weight Change: -26.6 lbs Total Weight Change: -67.2 lbs % EBWL: 24% Comments: 3M Pre-op Weight Metrics: Post-op Weight Metrics: %EBWL: % EBWL: 24% Weight Change Since Last Visit: Weight Change: -26.6 lbs Weight Change from Highest Pre-op Weight: Total Weight Change: -67.2 lbs Patient has the following questions: None Reported Pain: Patient rates pain on scale 0-10 as: 0 Exercise Compliance: Exercising: yes If yes: Type: walking, workout at gym Times per week: 5 Min per session: 25-120 Falls Risk Assessment Patient does take medications which affect BP or mental status Patient does not have newly prescribed or changed dosage of medications within past 30 days which affect BP or mental status Patient has fallen in the past 2 months Patient does not demonstrate unsteady gait Patient uses the following ambulatory assistive devices: none Patient states the presence of the following traits which increases risk of fall: Patient is not on home O2 Labs Completed: yes - If NO, patient instructed to get labs drawn today or [facility] If YES: [facility] yes If yes see Labs Tab Labs completed at Non[facility] facility? N/A If yes see Encounters Tab - Orders only - Historical Provider - Date: 08/11/2023 Completed by: Peggy Friedman MA * Kimberley Frank RD - 08/11/2023 12:45 PM EDT [facility] [place] 3 MONTH POST-OPERATIVE DIETITIAN VISIT Date: 08/11/23 Patient's weight Decreased by: 67.2 lbs Patient does consume 5-6 small meals daily Patient s portions are adequate for current diet: -1 cup Protein requirements discussed- currently consuming 40-60 grams of protein daily. Current protein sources: deli turkey, chicken, Protein shake, cheese, sirloin, ground beef, [place] yogurt Recommendations:continue aiming for 5-6 meals per day Fluid requirements discussed. Current Fluid Intake: >64 oz/day Patient does drink sugar-free, caffeine-free and carbonation-free fluids only. Patient does waiting 30 minutes before and after meals to drink Exercise activities discussed. Patient does currently exercising. She was reminded that regular exercise is critical part of a successful outcome following weight loss surgery. (Strength training 3x/wk and walking) Behavioral/Emotional changes reviewed. Patient does feel comfortable with changes in eating behaviors and associated emotional changes. She was reminded that psychological counseling is available through the [facility] post-operatively. Patient told she may switch to non-chewable vitamins and calcium citrate. Recent Nutrient Concerns and Vitamin Supplementation Changes: Pt compliant with vitamin/mineral protocol. To add a Ferrous Sulfate 325 mg/day, as MVI only has 9 mg iron, and iron and iron indicators low normal. Pt to switch to a different Trevon-MVI with 45 mg iron and then can discontinue Ferrous Sulfate, labs are WNL. Notes/Comments: Pt doing well. Continue aiming for 5-6 meals per day. Pt encouraged to call/Mychartwith questions. Visit completed by: Kimberley Frank RD documented in this [facility]05-13-2024 History of Present illness Narrative* Ravi Abreu MD - 07/05/2023 1:00 PM EDT Images from the original note were not included. [facility] [address] [facility] [address] Dept: [phone] Dept Visit type: Established : 1995 Reason for Visit: 6 Month Follow-up Assessment and Plan 1. Paroxysmal atrial fibrillation (HCC): currently NSR - metoprolol tartrate (Lopressor) 25 MG tabletBID, better absorbed than succinate (stopped succinate) - referral to [facility], given that she is young with symptomatic AF with RVR and a normal RVR and she managing her MOE with CPAP and she had bariatric surgery to reduce her wt (down50 lbs after surgery) -she may benefit from an ablation, if that does not work may consider pill in pocket with flecainide - not need for OAC as her CHADs VASc is 1 2. Atrial fibrillation with RVR (HCC) - [facility], above 3. Orthostatic hypotension - gets lightheaded and dizzy after going from sitting to standing post bariatric surgery -> mostlikely orthostatic hypotension leading to sinus tachycardia, likely not absorbing fluids as well - told her to increase her fuids and salt intake Follow up for With EP per their recs. PGY6, Cardiovascular Fellow at 2:19 PM Subjective HPI Anne Marie Peterson is a 27 yo F with a PMH of PAF with rapid response ( CHADs2 VASc2 of 1 not on OAC),morbid obesity, and MOE (compliant with CPAP) post bariatric surgery in April 2023, also had post OP pancreatitis and some bleeding complications. She has had episodes of AF on 03/21/23 to [place], that resolved with IV metoprolol. She was placed on metoprolol succinate 25 mg daily after this. She had an episode of AF in May 2023. Per patient her longest period of AF was when she went to [place], it had been about 30 hours that time. Each time it has been going down (24 hours the second time, april it was 12 hours). During On 06/29/23 she had another event with of Rapid HR from 120-180 she thinks she was still in sinus just tachy as it was regular. This occurred when she was going from sitting to standing. I called back and recommended she take an extra dose of her metoprolol in case it was AF. Her apple watch did not state that it was irregular and before it had. She was lightheaded and dizzy but no palpitatio ns nor dyspneic which she gets with AF so she does not think it was AF. States after her surgery she has been getting lightheaded and dizzy when she stands up and her HR goes up often but no every time. She has not passed out. She has been vitamin deficient as well Currently she denies any symptoms. Other than the post op complications of bleeding and pancreatitis, she is now doing well. She has been able to loose about 50 lbs. Review of Systems Constitutional: Negative for activity change, fever and unexpected weight change. Respiratory: Positive for shortness of breath (when she is in AF). Negative for cough, chest tightness and wheezing. Cardiovascular: Negative for chest pain, palpitations and leg swelling. Gastrointestinal: Negative for abdominal distention, abdominal pain, diarrhea and nausea. Endocrine: Negative for cold intolerance and heat intolerance. Genitourinary: Negative for hematuria. Skin: Negative for color change and rash. Neurological: Positive for dizziness and light-headedness (when she stands up). Negative for weakness and headaches. Allergies Allergen Reactions Nsaids S/P BARIATRIC SURGERY Outpatient Medications Prior to Visit Medication Sig Dispense Refill calcium carbonate (Tums) 500 MG chewable tablet Chew 500 mg 3 times daily. Cyanocobalamin (Vitamin B-12) [address] 1 Dose under the tongue daily. ferrous sulfate 325 (65 Fe) MG tablet Take 1 tablet (325 mg) by mouth 2 times daily. 30 tablet 3 magnesium 30 MG tablet Take 30 mg by mouth 2 times daily. omeprazole (PriLOSEC) [address] capsule Take 1 capsule (20 mg) by mouth daily. Do not crush or chew.90 capsule 1 Pediatric Multivitamins-Iron (FLINTSTONES PLUS IRON PO) Take 2 tablets by mouth daily. sulfamethoxazole-trimethoprim (Bactrim DS) 800-160 MG tablet Take 1 tablet by mouth 2 times daily. VITAMIN D, CHOLECALCIFEROL, PO Take 4,000 Int'l Units by mouth daily. metoprolol succinate XL (Toprol-XL) 50 MG 24 hr tablet Take 50 mg by mouth daily. Respiratory Therapy Supplies (CareTouch 2 CPAP Hose Dominatrix) misc 10 cm h20 metoprolol succinate XL (Toprol-XL) 25 MG 24 hr tablet Take 1 tablet (25 mg) by mouth daily. (Patient taking differently: Take 50 mg by mouth daily.) 90 tablet 3 No facility-administered medications prior to visit. 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 Memo Duke / Ernst Chavez [facility] - inguinal hernia LAP GASTRIC BYPASS/SANDRA-EN-Y (HISTORICAL) 05/10/2023 [facility] - Dr. Campbell LAP,CHOLECYSTECTOMY (HISTORICAL) 2009 Dr. Memo Duke / Ernst Chavez [facility] UPPER GASTROINTESTINAL ENDOSCOPY Family History Problem Relation Name Age of Onset Cancer Mother Hypertension Mother Obesity Mother Heart disease Father Obesity Father Cancer Maternal Grandmother Heart disease Maternal Grandmother Stroke Maternal Grandfather Hypertension Maternal Grandfather Heart disease Maternal Grandfather Diabetes Maternal Grandfather Obesity Maternal Grandfather Anesthesia problems Maternal Grandfather Objective Vitals: 07/05/23 1311 BP: 100/74 BP Location: Left arm Patient Position: Sitting BP Cuff Size: Large adult Pulse: 94 Weight: (!) 350 lb (159 kg) Height: 5' 6 (1.676 m) Physical Exam Constitutional: Appearance: Normal appearance. She is obese. She is not ill-appearing. HENT: Head: Normocephalic and atraumatic. Left Ear: External ear normal. Eyes: Conjunctiva/sclera: Conjunctivae normal. Pupils: Pupils are equal, round, and reactive to light. Neck: Vascular: No carotid bruit, hepatojugular reflux or JVD. Cardiovascular: Rate and Rhythm: Normal rate and regular rhythm. Pulses: Normal pulses. Heart sounds: Normal heart sounds. Pulmonary: Effort: Pulmonary effort is normal. Breath sounds: Normal breath sounds. No wheezing or rales. Abdominal: General: Bowel sounds are normal. Palpations: Abdomen is soft. Musculoskeletal: General: Normal range of motion. Cervical back: Normal range of motion. Right lower leg: No edema. Left lower leg: No edema. Skin: General: Skin is warm. Capillary Refill: Capillary refill takes less than 2 seconds. Neurological: General: No focal deficit present. Mental Status: She is alert and oriented to person, place, and time. Psychiatric: Thought Content: Thought content normal. Judgment: Judgment normal. Data Reviewed and Summarized EF BP Date Value Ref Range Status 01/12/2023 65 55 - 100 % Final Review of tests/labs done/ordered within my specialty: EKG in office: Review of tests/labs done/ordered outside my specialty: Independent interpretation of tests: Ravi Abreu MD documented in this [facility]05-13-2024 History of Present illness Narrative* Ravi Abreu MD - 07/05/2023 1:00 PM EDT Images from the original note were not included. [facility] [address] [facility] [address] Dept: [phone] Dept Visit type: Established : 1995 Reason for Visit: 6 Month Follow-up Assessment and Plan 1. Paroxysmal atrial fibrillation (HCC): currently NSR - metoprolol tartrate (Lopressor) 25 MG tabletBID, better absorbed than succinate (stopped succinate) - referral to [facility], given that she is young with symptomatic AF with RVR and a normal RVR and she managing her MOE with CPAP and she had bariatric surgery to reduce her wt (down50 lbs after surgery) -she may benefit from an ablation, if that does not work may consider pill in pocket with flecainide - not need for OAC as her CHADs VASc is 1 2. Atrial fibrillation with RVR (HCC) - [facility], above 3. Orthostatic hypotension - gets lightheaded and dizzy after going from sitting to standing post bariatric surgery -> mostlikely orthostatic hypotension leading to sinus tachycardia, likely not absorbing fluids as well - told her to increase her fuids and salt intake Follow up for With EP per their recs. PGY6, Cardiovascular Fellow at 2:19 PM I, Dr. Thurman, saw and evaluated the patient on 07/05/2023. I personally obtained the frost and critical portions of the history and physical exam. I reviewed the chart, the fellow's documentation, and discussed the patient with the fellow. I agree with the fellow's medical decision making and have edited the note to reflect my clinical findings and my assessment and plan. Subjective HPI Anne Marie Peterson is a 27 yo F with a PMH of PAF with rapid response ( CHADs2 VASc2 of 1 not on OAC),morbid obesity, and MOE (compliant with CPAP) post bariatric surgery in April 2023, also had post OP pancreatitis and some bleeding complications. She has had episodes of AF on 03/21/23 to [place], that resolved with IV metoprolol. She was placed on metoprolol succinate 25 mg daily after this. She had an episode of AF in May 2023. Per patient her longest period of AF was when she went to [place], it had been about 30 hours that time. Each time it has been going down (24 hours the second time, april it was 12 hours). During On 06/29/23 she had another event with of Rapid HR from 120-180 she thinks she was still in sinus just tachy as it was regular. This occurred when she was going from sitting to standing. I called back and recommended she take an extra dose of her metoprolol in case it was AF. Her apple watch did not state that it was irregular and before it had. She was lightheaded and dizzy but no palpitatio ns nor dyspneic which she gets with AF so she does not think it was AF. States after her surgery she has been getting lightheaded and dizzy when she stands up and her HR goes up often but no every time. She has not passed out. She has been vitamin deficient as well Currently she denies any symptoms. Other than the post op complications of bleeding and pancreatitis, she is now doing well. She has been able to loose about 50 lbs. Review of Systems Constitutional: Negative for activity change, fever and unexpected weight change. Respiratory: Positive for shortness of breath (when she is in AF). Negative for cough, chest tightness and wheezing. Cardiovascular: Negative for chest pain, palpitations and leg swelling. Gastrointestinal: Negative for abdominal distention, abdominal pain, diarrhea and nausea. Endocrine: Negative for cold intolerance and heat intolerance. Genitourinary: Negative for hematuria. Skin: Negative for color change and rash. Neurological: Positive for dizziness and light-headedness (when she stands up). Negative for weakness and headaches. Allergies Allergen Reactions Nsaids S/P BARIATRIC SURGERY Outpatient Medications Prior to Visit Medication Sig Dispense Refill calcium carbonate (Tums) 500 MG chewable tablet Chew 500 mg 3 times daily. Cyanocobalamin (Vitamin B-12) [address] 1 Dose under the tongue daily. ferrous sulfate 325 (65 Fe) MG tablet Take 1 tablet (325 mg) by mouth 2 times daily. 30 tablet 3 magnesium 30 MG tablet Take 30 mg by mouth 2 times daily. omeprazole (PriLOSEC) [address] capsule Take 1 capsule (20 mg) by mouth daily. Do not crush or chew.90 capsule 1 Pediatric Multivitamins-Iron (FLINTSTONES PLUS IRON PO) Take 2 tablets by mouth daily. sulfamethoxazole-trimethoprim (Bactrim DS) 800-160 MG tablet Take 1 tablet by mouth 2 times daily. VITAMIN D, CHOLECALCIFEROL, PO Take 4,000 Int'l Units by mouth daily. metoprolol succinate XL (Toprol-XL) 50 MG 24 hr tablet Take 50 mg by mouth daily. Respiratory Therapy Supplies (CareTouch 2 CPAP Hose Dominatrix) misc 10 cm h20 metoprolol succinate XL (Toprol-XL) 25 MG 24 hr tablet Take 1 tablet (25 mg) by mouth daily. (Patient taking differently: Take 50 mg by mouth daily.) 90 tablet 3 No facility-administered medications prior to visit. 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 Memo Duke / Ernst Cahvez [facility] - inguinal hernia LAP GASTRIC BYPASS/SANDRA-EN-Y (HISTORICAL) 05/10/2023 [facility] - Dr. Campbell LAP,CHOLECYSTECTOMY (HISTORICAL) 2009 Dr. Memo Duke / Ernst Chavez [facility] UPPER GASTROINTESTINAL ENDOSCOPY Family History Problem Relation Name Age of Onset Cancer Mother Hypertension Mother Obesity Mother Heart disease Father Obesity Father Cancer Maternal Grandmother Heart disease Maternal Grandmother Stroke Maternal Grandfather Hypertension Maternal Grandfather Heart disease Maternal Grandfather Diabetes Maternal Grandfather Obesity Maternal Grandfather Anesthesia problems Maternal Grandfather Objective Vitals: 07/05/23 1311 BP: 100/74 BP Location: Left arm Patient Position: Sitting BP Cuff Size: Large adult Pulse: 94 Weight: (!) 350 lb (159 kg) Height: 5' 6 (1.676 m) Physical Exam Constitutional: Appearance: Normal appearance. She is obese. She is not ill-appearing. HENT: Head: Normocephalic and atraumatic. Left Ear: External ear normal. Eyes: Conjunctiva/sclera: Conjunctivae normal. Pupils: Pupils are equal, round, and reactive to light. Neck: Vascular: No carotid bruit, hepatojugular reflux or JVD. Cardiovascular: Rate and Rhythm: Normal rate and regular rhythm. Pulses: Normal pulses. Heart sounds: Normal heart sounds. Pulmonary: Effort: Pulmonary effort is normal. Breath sounds: Normal breath sounds. No wheezing or rales. Abdominal: General: Bowel sounds are normal. Palpations: Abdomen is soft. Musculoskeletal: General: Normal range of motion. Cervical back: Normal range of motion. Right lower leg: No edema. Left lower leg: No edema. Skin: General: Skin is warm. Capillary Refill: Capillary refill takes less than 2 seconds. Neurological: General: No focal deficit present. Mental Status: She is alert and oriented to person, place, and time. Psychiatric: Thought Content: Thought content normal. Judgment: Judgment normal. Data Reviewed and Summarized EF BP Date Value Ref Range Status 01/12/2023 65 55 - 100 % Final Review of tests/labs done/ordered within my specialty: EKG in office: Review of tests/labs done/ordered outside my specialty: Independent interpretation of tests: Ravi Abreu MD documented in this [facility]05-13-2024 Instructions* Patient Instructions* Ravi Abreu MD - 07/05/2023 1:00 PM EDT I am referring you to electrophysiology (electrical binder coverstitch) for the atrial fibrillation, theymay be able to do a procedure called an ablation that has about an 80% success rate to cure Afib If your HR goes above 120 beats per minute or you are symptomatic from atrial fibrillation then youcan take an extra dose of metoprolol tartrate 25 mg Increase your fluids and electrolytes, greater than 64 oz documented in this [facility]04-25-2024 History of Present illness Narrative* Peggy Friedman MA - 06/17/2023 9:05 AM EDT [facility] PROGRESS [facility] POST WEIGHT LOSS SURGERY FOLLOW UP Patient: Anne Marie Peterson Service Date: 06/17/2023 Patient is 1 month(s) s/p RnY Gastric Bypass Today's Metrics: Post-Surgical Weight Loss Date: 06/17/23 Height: 5' 5.25 (165.7 cm) Weight: 362 lb 6.4 oz (164 kg) BMI: 59.84 Weight Change: -10 lbs Total Weight Change: -40.6 lbs % EBWL: 15% Comments: 1M Pre-op Weight Metrics: Post-op Weight Metrics: %EBWL: % EBWL: 15% Weight Change Since Last Visit: Weight Change: -10 lbs Weight Change from Highest Pre-op Weight: Total Weight Change: -40.6 lbs Patient has the following questions: None Reported Pain: Patient rates pain on scale 0-10 as: 3 Exercise Compliance: Exercising: yes If yes: Type: walking Times per week: 5 Min per session: 20 Falls Risk Assessment Patient does not take medications which affect BP or mental status Patient does not have newly prescribed or changed dosage of medications within past 30 days which affect BP or mental status Patient has not fallen in the past 2 months Patient does not demonstrate unsteady gait Patient uses the following ambulatory assistive devices: none Patient states the presence of the following traits which increases risk of fall: none Patient is not on home O2 Labs Completed: yes - If NO, patient instructed to get labs drawn today or ALMAZ If YES: Labs completed at [facility]? yes If yes see Labs Tab Labs completed at Non-[facility] facility? N/A If yes see Encounters Tab - Orders only - Historical Provider - Date: 06/10/2023- 06/11/2023 while inpatient Completed by: Peggy Friedman MA * Kimberley Frank RD - 06/17/2023 9:05 AM EDT [facility] 1 MONTH POST-OPERATIVE DIETITIAN VISIT Date: 06/17/23 Current diet reviewed with patient. Soft and maintenance diets discussed and. handouts provided. Patient's weight decreased by: 40.6 lbs Patient does consume 5-6 small meals daily: (3-5x/day) Patient s portions are adequate for current diet: -1 cup Protein requirements discussed- currently consuming 30-50 grams of protein daily. Current protein sources: chicken, turkey, deli meat, ground beef, protein shake Recommendations:aim for 5 small meals/snacks per day Fluid requirements discussed. Current Fluid Intake: 40-50 oz/day Patient does drink sugar-free, caffeine-free and carbonation-free fluids only. Patient does wait 30 minutes before and after meals to drink Exercise activities discussed. Patient does currently exercising. She was reminded that regular exercise is critical part of a successful outcome following weight loss surgery. (Walking around the block) Behavioral/Emotional changes reviewed. Patient does feel comfortable with changes in eating behaviors and associated emotional changes. She was reminded that psychological counseling is available through the [facility] post-operatively. The importance of vitamin supplements has been reviewed and the patient is taking the following: -Multivitamin with minerals and iron -Calcium -Vitamin B12 -Vitamin D3 -Other: Recent Nutrient Concerns and Vitamin Supplementation Changes: Pt compliant with vitamin/mineral protocol. Pt to have labs done. Notes/Comments: Aim for 5 small meals/snacks per day. Increase fluids to goal of 64 oz/day. May setalarms to remind to eat/drink. Pt doing well. Pt to advance to maintenance diet. Pt encouraged to call/MyChart with questions. Visit completed by: Kimberley Frank RD * Memo Campbell MD - 06/17/2023 9:05 AM EDT Images from the original note were not included. [facility] Patient: Anne Marie Peterson Date of : 1995 Service Date: 06/17/2023 HPI: Patient here today for 1 month post-weight loss surgery follow up She is feeling well. Denies nausea, vomiting, dysphagia, or any GERD Sx. Currently is on a PPI. Patient states diet and exercise is going fairly well. Currently is eating 65-75 gm/day protein, and iscompliant with prescribed multivitamins and supplements. Vital signs are stable. Labs were Completed. All labs were: normal Physical Examination: BP (!) 152/97 Pulse (!) 114 Temp 36.3 C (97.3 F) Resp 18 Ht 5' 5.25 (1.657 m) Comment: [facility] Wt (!) 362 lb 6.4 oz (164 kg) Comment: [facility] BMI 59.85 kg/m General: This patient is awake, alert, and oriented, and is in no apparent distress. Respiratory: Non-labored breathing Abdomen: Obese, soft, non-tender, non-distended without masses/ No evidence of abdominal hernia / Incisions consistent with previous surgeries. Extremities: No cyanosis, clubbing or edema/ No calf tenderness/No restrictions of movement, is ambulatory without assistance. Surgical site: clean, dry, intact, and nontender Drainage from surgical site: none Patient does not have a superficial incisional SSI Current Medications: Patient's Medications New Prescriptions No medications on file Previous Medications CALCIUM CARBONATE (TUMS) 500 MG CHEWABLE TABLET Chew 500 mg 3 times daily. CYANOCOBALAMIN (VITAMIN B-12) [address] 1 Dose under the tongue daily. FERROUS SULFATE 325 (65 FE) MG TABLET Take 1 tablet (325 mg) by mouth 2 times daily. MAGNESIUM 30 MG TABLET Take 30 mg by mouth 2 times daily. METOPROLOL SUCCINATE XL (TOPROL-XL) 25 MG 24 HR TABLET Take 1 tablet (25 mg) by mouth daily. OMEPRAZOLE (PRILOSEC) [address] CAPSULE Take 1 capsule (20 mg) by mouth daily. Do not crush or chew. PEDIATRIC MULTIVITAMINS-IRON (FLINTSTONES PLUS IRON PO) Take 2 tablets by mouth daily. RESPIRATORY THERAPY SUPPLIES (CARETOUCH 2 CPAP HOSE PRODUCE SHIPPER) MISC 10 cm h20 VITAMIN D, CHOLECALCIFEROL, PO Take 4,000 Int'l Units by mouth daily. Modified Medications No medications on file Discontinued Medications No medications on file Medications ordered during this encounter: Outpatient Encounter Medications as of 06/17/2023 Medication Sig Dispense Refill calcium carbonate (Tums) 500 MG chewable tablet Chew 500 mg 3 times daily. Cyanocobalamin (Vitamin B-12) [address] 1 Dose under the tongue daily. ferrous sulfate 325 (65 Fe) MG tablet Take 1 tablet (325 mg) by mouth 2 times daily. 30 tablet 3 magnesium 30 MG tablet Take 30 mg by mouth 2 times daily. metoprolol succinate XL (Toprol-XL) 25 MG 24 hr tablet Take 1 tablet (25 mg) by mouth daily. (Patient taking differently: Take 50 mg by mouth daily.) 90 tablet 3 omeprazole (PriLOSEC) [address] capsule Take 1 capsule (20 mg) by mouth daily. Do not crush or chew.90 capsule 1 Pediatric Multivitamins-Iron (FLINTSTONES PLUS IRON PO) Take 2 tablets by mouth daily. Respiratory Therapy Supplies (CareTouch 2 CPAP Hose Dominatrix) misc 10 cm h20 VITAMIN D, CHOLECALCIFEROL, PO Take 4,000 Int'l Units by mouth daily. [DISCONTINUED] nystatin (Mycostatin) 474554 UNIT/ML suspension Swish and swallow 5 mL (500,000 Units) 3 times daily for 10 days. 150 mL 0 No facility-administered encounter medications on file as of 06/17/2023. Orders Placed This Encounter Procedures Zinc Folate Iron Ferritin Magnesium Vitamin B12 Comprehensive metabolic panel CBC Visit Diagnoses: 1. Encounter for postoperative care 2. MOE on CPAP 3. Primary hypertension 4. Prediabetes 5. Deficiency of multiple nutrient elements 6. Intestinal malabsorption, unspecified type 7. Morbid obesity with BMI of 50.0-59.9, adult ([facility]) Plan: 1). Cleared for all activity, no weight restrictions. All incisions healed. 2). Continue PPI until 6 month office visit 3). Labs: normal 4). F/u at 3 month office visit with standard labs 5). Progressing diet as tolerated per RD 6). Psych concerns: No 7). Dysphagia: No 8). If patient is a woman of childrearing age- 18-50. We discussed the importance of contraception during the first 12-18 months post op, and we discussed that fertility will increase following the procedure. Advised patient to discuss with her OBGYN regarding contraception. Patient counseled with good understanding verbalized. 9). Weight loss: Post-op Weight Metrics: %EBWL: % EBWL: 15% Weight Change Since Last Visit: Weight Change: -10 lbs Weight Change from Highest Pre-op Weight: Total Weight Change: -40.6 lbs She met with the dietitian today to review are vitamin and protein recommendations. Increase activity as recommended, the wounds are healed, no evidence of abdominal wall hernias. No nausea vomiting or dysphagia noted. Appropriate bowel function, discussed with her regarding contacting us for any questions or concerns. The lab slip was signed for the next visit, labs from 06/11/23 were reviewed and are within normal limits. Follow-up 3 months postop. Doing better after readmit for PO pancreatitis (h/o gerardo). Will have vitamin levels checked. Did well with short course TPN and now tolerating PO without n/v. I personally performed the evaluation and management of Anne Marie Peterson in the development of a treatment plan for this patient. I personally interviewed the patient and performed an individual physical examination. In addition, I discussed the patient's condition and treatment options with them. Ihave also reviewed and agree with the past medical, family and social history unless otherwise noted. All of the patient's questions were answered. Patient Care Team: Xenia Lane as PCP - General (Family Medicine) Silviano Daley (Obstetrics and Gynecology) Memo Campbell MD as Surgeon (General Surgery) Zully Anton RN as Registered Nurse (Bariatrics) Eliazar Abreu MD as Consulting Physician (Internal Medicine Cardiovascular Disease) documented in this encounterSumma [id number] History of Present illness Narrative* Peggy Friedman MA - 06/17/2023 9:05 AM EDT [facility] [place] PROGRESS NOTE POST WEIGHT LOSS SURGERY FOLLOW UP Patient: Anne Marie Peterson Service Date: 06/17/2023 Patient is 1 month(s) s/p RnY Gastric Bypass Today's Metrics: Post-Surgical Weight Loss Date: 06/17/23 Height: 5' 5.25 (165.7 cm) Weight: 362 lb 6.4 oz (164 kg) BMI: 59.84 Weight Change: -10 lbs Total Weight Change: -40.6 lbs % EBWL: 15% Comments: 1M Pre-op Weight Metrics: Post-op Weight Metrics: %EBWL: % EBWL: 15% Weight Change Since Last Visit: Weight Change: -10 lbs Weight Change from Highest Pre-op Weight: Total Weight Change: -40.6 lbs Patient has the following questions: None Reported Pain: Patient rates pain on scale 0-10 as: 3 Exercise Compliance: Exercising: yes If yes: Type: walking Times per week: 5 Min per session: 20 Falls Risk Assessment Patient does not take medications which affect BP or mental status Patient does not have newly prescribed or changed dosage of medications within past 30 days which affect BP or mental status Patient has not fallen in the past 2 months Patient does not demonstrate unsteady gait Patient uses the following ambulatory assistive devices: none Patient states the presence of the following traits which increases risk of fall: none Patient is not on home O2 Labs Completed: yes - If NO, patient instructed to get labs drawn today or ALMAZ If YES: Labs completed at [facility]? yes If yes see Labs Tab Labs completed at Non-[facility] facility? N/A If yes see Encounters Tab - Orders only - Historical Provider - Date: 06/10/2023- 06/11/2023 while inpatient Completed by: Peggy Friedman MA * Kimberley Frank RD - 06/17/2023 9:05 AM EDT [facility] [place] 1 MONTH POST-OPERATIVE DIETITIAN VISIT Date: 06/17/23 Current diet reviewed with patient. Soft and maintenance diets discussed and. handouts provided. Patient's weight decreased by: 40.6 lbs Patient does consume 5-6 small meals daily: (3-5x/day) Patient s portions are adequate for current diet: -1 cup Protein requirements discussed- currently consuming 30-50 grams of protein daily. Current protein sources: chicken, turkey, deli meat, ground beef, protein shake Recommendations:aim for 5 small meals/snacks per day Fluid requirements discussed. Current Fluid Intake: 40-50 oz/day Patient does drink sugar-free, caffeine-free and carbonation-free fluids only. Patient does wait 30 minutes before and after meals to drink Exercise activities discussed. Patient does currently exercising. She was reminded that regular exercise is critical part of a successful outcome following weight loss surgery. (Walking around the block) Behavioral/Emotional changes reviewed. Patient does feel comfortable with changes in eating behaviors and associated emotional changes. She was reminded that psychological counseling is available through the [facility] post-operatively. The importance of vitamin supplements has been reviewed and the patient is taking the following: -Multivitamin with minerals and iron -Calcium -Vitamin B12 -Vitamin D3 -Other: Recent Nutrient Concerns and Vitamin Supplementation Changes: Pt compliant with vitamin/mineral protocol. Pt to have labs done. Notes/Comments: Aim for 5 small meals/snacks per day. Increase fluids to goal of 64 oz/day. May setalarms to remind to eat/drink. Pt doing well. Pt to advance to maintenance diet. Pt encouraged to call/MyChart with questions. Visit completed by: Kimberley Frank RD * Memo Campbell MD - 06/17/2023 9:05 AM EDT Images from the original note were not included. [facility] Patient: Anne Marie Peterson Date of : 1995 Service Date: 06/17/2023 HPI: Patient here today for 1 month post-weight loss surgery follow up She is feeling well. Denies nausea, vomiting, dysphagia, or any GERD Sx. Currently is on a PPI. Patient states diet and exercise is going fairly well. Currently is eating 65-75 gm/day protein, and iscompliant with prescribed multivitamins and supplements. Vital signs are stable. Labs were Completed. All labs were: normal Physical Examination: BP (!) 152/97 Pulse (!) 114 Temp 36.3 C (97.3 F) Resp 18 Ht 5' 5.25 (1.657 m) Comment: [facility] Wt (!) 362 lb 6.4 oz (164 kg) Comment: [facility] BMI 59.85 kg/m General: This patient is awake, alert, and oriented, and is in no apparent distress. Respiratory: Non-labored breathing Abdomen: Obese, soft, non-tender, non-distended without masses/ No evidence of abdominal hernia / Incisions consistent with previous surgeries. Extremities: No cyanosis, clubbing or edema/ No calf tenderness/No restrictions of movement, is ambulatory without assistance. Surgical site: clean, dry, intact, and nontender Drainage from surgical site: none Patient does not have a superficial incisional SSI Current Medications: Patient's Medications New Prescriptions No medications on file Previous Medications CALCIUM CARBONATE (TUMS) 500 MG CHEWABLE TABLET Chew 500 mg 3 times daily. CYANOCOBALAMIN (VITAMIN B-12) [address] 1 Dose under the tongue daily. FERROUS SULFATE 325 (65 FE) MG TABLET Take 1 tablet (325 mg) by mouth 2 times daily. MAGNESIUM 30 MG TABLET Take 30 mg by mouth 2 times daily. METOPROLOL SUCCINATE XL (TOPROL-XL) 25 MG 24 HR TABLET Take 1 tablet (25 mg) by mouth daily. OMEPRAZOLE (PRILOSEC) [address] CAPSULE Take 1 capsule (20 mg) by mouth daily. Do not crush or chew. PEDIATRIC MULTIVITAMINS-IRON (FLINTSTONES PLUS IRON PO) Take 2 tablets by mouth daily. RESPIRATORY THERAPY SUPPLIES (CARETOUCH 2 CPAP HOSE PRODUCE SHIPPER) MISC 10 cm h20 VITAMIN D, CHOLECALCIFEROL, PO Take 4,000 Int'l Units by mouth daily. Modified Medications No medications on file Discontinued Medications No medications on file Medications ordered during this encounter: Outpatient Encounter Medications as of 06/17/2023 Medication Sig Dispense Refill calcium carbonate (Tums) 500 MG chewable tablet Chew 500 mg 3 times daily. Cyanocobalamin (Vitamin B-12) [address] 1 Dose under the tongue daily. ferrous sulfate 325 (65 Fe) MG tablet Take 1 tablet (325 mg) by mouth 2 times daily. 30 tablet 3 magnesium 30 MG tablet Take 30 mg by mouth 2 times daily. metoprolol succinate XL (Toprol-XL) 25 MG 24 hr tablet Take 1 tablet (25 mg) by mouth daily. (Patient taking differently: Take 50 mg by mouth daily.) 90 tablet 3 omeprazole (PriLOSEC) [address] capsule Take 1 capsule (20 mg) by mouth daily. Do not crush or chew.90 capsule 1 Pediatric Multivitamins-Iron (FLINTSTONES PLUS IRON PO) Take 2 tablets by mouth daily. Respiratory Therapy Supplies (CareTouch 2 CPAP Hose Dominatrix) misc 10 cm h20 VITAMIN D, CHOLECALCIFEROL, PO Take 4,000 Int'l Units by mouth daily. [DISCONTINUED] nystatin (Mycostatin) [id number] UNIT/ML suspension Swish and swallow 5 mL (500,000 Units) 3 times daily for 10 days. 150 mL 0 No facility-administered encounter medications on file as of 06/17/2023. Orders Placed This Encounter Procedures Zinc Folate Iron Ferritin Magnesium Vitamin B12 Comprehensive metabolic panel CBC Visit Diagnoses: 1. Encounter for postoperative care 2. MOE on CPAP 3. Primary hypertension 4. Prediabetes 5. Deficiency of multiple nutrient elements 6. Intestinal malabsorption, unspecified type 7. Morbid obesity with BMI of 50.0-59.9, adult ([facility]) Plan: 1). Cleared for all activity, no weight restrictions. All incisions healed. 2). Continue PPI until 6 month office visit 3). Labs: normal 4). F/u at 3 month office visit with standard labs 5). Progressing diet as tolerated per RD 6). Psych concerns: No 7). Dysphagia: No 8). If patient is a woman of childrearing age- 18-50. We discussed the importance of contraception during the first 12-18 months post op, and we discussed that fertility will increase following the procedure. Advised patient to discuss with her OBGYN regarding contraception. Patient counseled with good understanding verbalized. 9). Weight loss: Post-op Weight Metrics: %EBWL: % EBWL: 15% Weight Change Since Last Visit: Weight Change: -10 lbs Weight Change from Highest Pre-op Weight: Total Weight Change: -40.6 lbs She met with the dietitian today to review are vitamin and protein recommendations. Increase activity as recommended, the wounds are healed, no evidence of abdominal wall hernias. No nausea vomiting or dysphagia noted. Appropriate bowel function, discussed with her regarding contacting us for any questions or concerns. The lab slip was signed for the next visit, labs from 06/11/23 were reviewed and are within normal limits. Follow-up 3 months postop. Doing better after readmit for PO pancreatitis (h/o gerardo). Will have vitamin levels checked. Did well with short course TPN and now tolerating PO without n/v. I personally performed the evaluation and management of Anne Marie Peterson in the development of a treatment plan for this patient. I personally interviewed the patient and performed an individual physical examination. In addition, I discussed the patient's condition and treatment options with them. Ihave also reviewed and agree with the past medical, family and social history unless otherwise noted. All of the patient's questions were answered. Patient Care Team: Xenia Lane as PCP - General (Family Medicine) Silviano Daley (Obstetrics and Gynecology) Memo Campbell MD as Surgeon (General Surgery) Zully Anton RN as Registered Nurse (Bariatrics) Eliazar Abreu MD as Consulting Physician (Internal Medicine Cardiovascular Disease) documented in this [facility]04-25-2024 Miscellaneous Notes* Addendum Note - Magali Borjas - 06/17/2023 9:05 AM EDTAddended by: MAGALI BORJAS on: 08/11/2023 10:14 AM Modules accepted: Orders documented in this [facility]04-25-2024 Note* Addendum Note - Magali Borjas - 06/17/2023 9:05 AM EDTAddended by: MAGALI BORJAS on: 08/11/2023 10:14 AM Modules accepted: [id number] NoteAddended by: MAGALI BORJAS on: 08/11/2023 10:14 AM Modules accepted: [facility]04-19-2024 Nurse Note* Jhonatan Rivera RN - 06/11/2023 10:31 AM EDT Pt discharged home, PICC line removed. Pt tolerated well. Discharged instructions reviewed and signed. No question at this time. [id number] Nurse Note* Jhonatan Rivera RN - 06/11/2023 10:31 AM EDT Pt discharged home, PICC line removed. Pt tolerated well. Discharged instructions reviewed and signed. No question at this time. documented in this [facility]04-19-2024 Note* Care Coordination - Adrián Abreu RN - 06/11/2023 9:25 AM EDT Images from the original note were not included. Care Management Progress Note Discharge order noted. Plan is home independently. Will need PICC removed prior to discharge. No discharge planning needs noted. Discharge Milestones and Delays Expected Date/Time: 06/11/2023 Disposition: Home or Self Care Transport status: No current request Discharge Milestones Completed Place discharge order Complete med reconciliation Case mgmt discharge readiness Clinical Stability Diagnsotic Workup Expected Discharge History Expected Date/Time Set By Reviewed At 06/11/2023 Adrián Abreu RN 06/11/2023 8:24 AM 06/11/2023 Jeannine Worthy MD 06/11/2023 6:42 AM 06/11/2023 Adrián Abreu RN 06/10/2023 8:09 AM 06/11/2023 Adriná Abreu RN 06/09/2023 8:45 AM 06/11/2023 Adrián Abreu RN 06/08/2023 8:49 AM 06/09/2023 Adrián Abreu RN 06/07/2023 8:23 AM 06/06/2023 Seth Leal DO 06/06/2023 5:29 PM 06/05/2023 Adrián Abreu RN 06/04/2023 8:20 AM 06/05/2023 Christy Lopez MD 06/04/2023 12:42 AM 06/05/2023 Christy Lopez MD 06/03/2023 11:53 PM 06/05/2023 Christy Lopez MD 06/03/2023 11:48 PM 06/05/2023 Christy Lopez MD 06/03/2023 11:09 PM Length of Stay (Days): 5 GMLOS: No GMLOS [facility]ed [id number] Note* Care Coordination - Adrián Abreu RN - 06/11/2023 9:25 AM EDT Images from the original note were not included. Care Management Progress Note Discharge order noted. Plan is home independently. Will need PICC removed prior to discharge. No discharge planning needs noted. Discharge Milestones and Delays Expected Date/Time: 06/11/2023 Disposition: Home or Self Care Transport status: No current request Discharge Milestones Completed Place discharge order Complete med reconciliation Case mgmt discharge readiness Clinical Stability Diagnsotic Workup Expected Discharge History Expected Date/Time Set By Reviewed At 06/11/2023 Adrián Abreu RN 06/11/2023 8:24 AM 06/11/2023 Jeannine Worthy MD 06/11/2023 6:42 AM 06/11/2023 Adrián Abreu RN 06/10/2023 8:09 AM 06/11/2023 Adrián Abreu RN 06/09/2023 8:45 AM 06/11/2023 Adrián Abreu RN 06/08/2023 8:49 AM 06/09/2023 Adrián Abreu RN 06/07/2023 8:23 AM 06/06/2023 Seth Lela DO 06/06/2023 5:29 PM 06/05/2023 Adrián Abreu RN 06/04/2023 8:20 AM 06/05/2023 Christy Lopez MD 06/04/2023 12:42 AM 06/05/2023 Christy Lopez MD 06/03/2023 11:53 PM 06/05/2023 Christy Lopez MD 06/03/2023 11:48 PM 06/05/2023 Christy Lopez MD 06/03/2023 11:09 PM Length of Stay (Days): 5 GMLOS: No GMLOS Documented [place] [id number] Miscellaneous Notes* Care Coordination - Adrián Abreu RN - 06/11/2023 9:25 AM EDT Images from the original note were not included. Care Management Progress Note Discharge order noted. Plan is home independently. Will need PICC removed prior to discharge. No discharge planning needs noted. Discharge Milestones and Delays Expected Date/Time: 06/11/2023 Disposition: Home or Self Care Transport status: No current request Discharge Milestones Completed Place discharge order Complete med reconciliation Case mgmt discharge readiness Clinical Stability Diagnsotic Workup Expected Discharge History Expected Date/Time Set By Reviewed At 06/11/2023 Adrián Abreu RN 06/11/2023 8:24 AM 06/11/2023 Jeannine Worthy MD 06/11/2023 6:42 AM 06/11/2023 Adrián Abreu RN 06/10/2023 8:09 AM 06/11/2023 Adrián Abreu RN 06/09/2023 8:45 AM 06/11/2023 Adrián Abreu RN 06/08/2023 8:49 AM 06/09/2023 Adrián Abreu RN 06/07/2023 8:23 AM 06/06/2023 Seth Leal DO 06/06/2023 5:29 PM 06/05/2023 Adrián Abreu RN 06/04/2023 8:20 AM 06/05/2023 Christy Lopez MD 06/04/2023 12:42 AM 06/05/2023 Christy Lopez MD 06/03/2023 11:53 PM 06/05/2023 Christy Lopez MD 06/03/2023 11:48 PM 06/05/2023 Christy Lopez MD 06/03/2023 11:09 PM Length of Stay (Days): 5 GMLOS: No GMLOS Documented * Care Coordination - Adrián Abreu RN - 06/10/2023 9:12 AM EDT Images from the original note were not included. Care Management Progress Note Remains on H6, s/p recent LRYGB with concern for pancreatitis. Also with Afib with RVR, changed to PO metoprolol. Has PICC line for TPN. Diet advanced to regular, plan to discontinue TPN. Potassium is 3.2 today. Discharge plan is home independently when medically ready, no discharge planning needs noted. TCC will continue to follow. Discharge Milestones and Delays Expected Date/Time: 06/11/[address] discharge order Complete med reconciliation Case mgmt discharge readiness Clinical Stability Diagnsotic Workup Expected Discharge History Expected Date/Time Set By Reviewed At 06/11/2023 Adrián Abreu RN 06/10/2023 8:09 AM 06/11/2023 Adrián Abreu RN 06/09/2023 8:45 AM 06/11/2023 Adrián Abreu RN 06/08/2023 8:49 AM 06/09/2023 Adrián Abreu RN 06/07/2023 8:23 AM 06/06/2023 Seth Leal DO 06/06/2023 5:29 PM 06/05/2023 Adrián Abreu RN 06/04/2023 8:20 AM 06/05/2023 Christy Lopez MD 06/04/2023 12:42 AM 06/05/2023 Christy Lopez MD 06/03/2023 11:53 PM 06/05/2023 Christy Lopez MD 06/03/2023 11:48 PM 06/05/2023 Christy Lopez MD 06/03/2023 11:09 PM Length of Stay (Days): 4 GMLOS: No GMLOS Documented * Care Coordination - Adrián Abreu RN - 06/09/2023 11:34 AM EDT Images from the original note were not included. Care Management Progress Note Remains on H6, s/p recent LRYGB with concern for pancreatitis. Also with Afib with RVR. Has PICC line for TPN. Receiving potassium supplements. IV metoprolol PRN. full liquid diet. Discharge plan is home independently pending progress. TCC will continue to follow. Discharge Milestones and Delays Expected Date/Time: 06/11/[address] discharge order Complete med reconciliation Case mgmt discharge readiness Clinical Stability Diagnsotic Workup Expected Discharge History Expected Date/Time Set By Reviewed At 06/11/2023 Adrián Abreu RN 06/09/2023 8:45 AM 06/11/2023 Adrián Abreu RN 06/08/2023 8:49 AM 06/09/2023 Adrián Abreu RN 06/07/2023 8:23 AM 06/06/2023 Seth Leal DO 06/06/2023 5:29 PM 06/05/2023 Adrián Abreu RN 06/04/2023 8:20 AM 06/05/2023 Christy Lopez MD 06/04/2023 12:42 AM 06/05/2023 Christy Lopez MD 06/03/2023 11:53 PM 06/05/2023 Christy Lopez MD 06/03/2023 11:48 PM 06/05/2023 Christy Lopez MD 06/03/2023 11:09 PM Length of Stay (Days): 3 GMLOS: No GMLOS Documented * Care Coordination - Adrián Abreu RN - 06/08/2023 11:40 AM EDT Images from the original note were not included. Care Management Progress Note Remains on H6, s/p recent LRYGB with concern for pancreatitis. Also with Afib with RVR. Has PICC line for TPN. Receiving potassium supplement. IV metoprolol. Clear liquid diet. Plan for ultrasound ofabdomen today. Discharge plan is home independently pending progress. TCC will continue to follow. Discharge Milestones and Delays Expected Date/Time: 06/11/[address] discharge order Complete med reconciliation Case mgmt discharge readiness Clinical Stability Diagnsotic Workup Expected Discharge History Expected Date/Time Set By Reviewed At 06/11/2023 Adrián Abreu RN 06/08/2023 8:49 AM 06/09/2023 Adrián Abreu RN 06/07/2023 8:23 AM 06/06/2023 Seth Leal DO 06/06/2023 5:29 PM 06/05/2023 Adrián Abreu RN 06/04/2023 8:20 AM 06/05/2023 Christy Lopez MD 06/04/2023 12:42 AM 06/05/2023 Christy Lopez MD 06/03/2023 11:53 PM 06/05/2023 Christy Lopez MD 06/03/2023 11:48 PM 06/05/2023 Christy Lopez MD 06/03/2023 11:09 PM Length of Stay (Days): 2 GMLOS: No GMLOS Documented * Care Coordination - Adrián Abrue RN - 06/07/2023 10:56 AM EDT Images from the original note were not included. Care Management Progress Note Remains on H6, s/p recent LRYGB with concern for pancreatitis. New consult for possible TPN. On clear liquid diet and IV fluids, electrolyte replacement. Monitoring labs. Discharge plan is home independently pending progress. TCC will continue to follow. Discharge Milestones and Delays Expected Date/Time: 06/09/[address] discharge order Complete med reconciliation Case mgmt discharge readiness Clinical Stability Diagnsotic Workup Expected Discharge History Expected Date/Time Set By Reviewed At 06/09/2023 Adrián Abreu RN 06/07/2023 8:23 AM 06/06/2023 Seth Leal DO 06/06/2023 5:29 PM 06/05/2023 Adrián Abreu RN 06/04/2023 8:20 AM 06/05/2023 Christy Lopez MD 06/04/2023 12:42 AM 06/05/2023 Christy Lopez MD 06/03/2023 11:53 PM 06/05/2023 Christy Lopez MD 06/03/2023 11:48 PM 06/05/2023 Christy Lopez MD 06/03/2023 11:09 PM Length of Stay (Days): 1 GMLOS: No GMLOS Documented * Care Coordination - Adrián Abreu RN - 06/04/2023 11:39 AM EDT Care Managment Initial Assessment Date: 06/04/2023 Patient Name: Anne Marie Peterson : 1995 Patient Information Source of Information: Patient Cognition/Language: WFL - Within Functional Limits Permission given to speak with patient customer care representative/caregiver as indicated: Yes Confirmation of Payer with patient/family: Yes Payer Name: [employer] MEDICAID : No Confirmation of Primary Care Physician: Confirmed PCP Name: Xenia Lane Seen in last 2 years?: Yes Primary Caregiver: Self If assistance needed, confirmed caregiver ready, willing and able to care for patient at discharge: Confirmed with: Living Arrangements Current Residence: House Number of Floors 2 Number of Entry Steps: 1 Bed/Bath Levels: Both second floor Facility: Facility Name: Plan to Return: Lives with: Children Support Systems: Children, Parent Activities of Daily Living Ambulation: Independent Bathing/Dressing: Independent Elimination/Continence/Toileting: Independent Feeding: Independent Who Assists with Activities of Daily Living: Instrumental Activities of Daily Living Prescription Coverage: Yes Pharmacy Used: [facility] [place] Medication Management: Independent Transportation/Shopping: Independent Transportation Mode: Car Needs Assistance with Transportation at Discharge: No Meal Preparation: Independent Laundry/Cleaning: Independent Finances/Bill Paying: Independent Communication: Independent Types of Care Services/Equipment Utilized Care Services: (NA) Dialysis Type: NA Durable Medical Equipment: Cane Patient's Goal/Discharge Plan Patient expects to be discharged to: HOME Discharge Planning Actions: No needs identified Patient's Choice Rights and [employer] and Collaborative Relationships Disclosed as Indicated for Post-Acute Care: NA Interdisciplinary Team Engagement: Social Work Referral for: Additional Information: Met with patient and her mother at their bedside. Introduced self and role. Discussed discharge planning. Patient has help at home and transportation available upon discharge. Discharge plan is home with assistance of her mother and grandmother. Patient verbalized understanding of discharge plan and agrees with plan. documented in this [place] [id number] History of Present illness Narrative* Jeannine Worthy MD - 06/11/2023 6:42 AM EDT Images from the original note were not included. Department of Surgery Progress Note PATIENT NAME: Anne Marie Peterson : 1995 ATTENDING PHYSICIAN: Seth Leal DO ADMIT DATE: 06/03/2023 TODAY'S DATE: 06/11/2023 SUBJECTIVE Patient continues to do well. Tolerating diet. OBJECTIVE VITALS: Patient Vitals for the past 24 hrs: BP Temp Temp src Pulse Resp SpO2 06/11/23 0334 126/82 36.4 C (97.6 F) Temporal 70 16 97 % 06/11/23 0009 108/67 37 C (98.6 F) Temporal 69 14 97 % 06/10/23 2036 127/81 36.3 C (97.3 F) Temporal 82 16 98 % 06/10/23 1706 113/54 36.7 C (98 F) Temporal 76 16 95 % 06/10/23 1152 104/65 36.1 C (97 F) Temporal 83 16 96 % 06/10/23 0739 107/61 (!) 35.9 C (96.7 F) Temporal 75 16 98 % PHYSICAL EXAM: Constitutional: NAD, Resting in bed Cardiac: regular rate Chest: Resp effort easy and unlabored Abdomen: soft, incisions well healed EXT: extremities normal, atraumatic, no cyanosis or edema INTAKE/OUTPUT: I/O last 3 completed shifts: In: 894.3 (5.3 mL/kg) [P.O.:150] Out: - (0 mL/kg) Weight: 168.7 kg I/O this shift: In: 300 [P.O.:300] Out: - Data CBC: Recent Labs 06/09/23 0420 06/10/23 0236 WBC 6.0 5.9 HGB 9.8* 9.5* HCT 32.2* 31.1* PLT 307 238 BMP: Recent Labs 06/09/23 1304 06/10/23 0236 06/10/23 1739 06/11/23 0159 NA 137 137 -- 136 K 3.7 3.2* 4.5 3.6 CL 102 104 -- 105 CO2 29 29 -- 28 BUN 9 10 -- 10 CREATININE 0.42* 0.40* -- 0.42* GLUCOSE 102* 95 -- 91 HEPATIC: No results for input(s): ALKPHOS, ALT, AST, PROT, BILITOT, BILIDIR in the last 72 hours. No lab exists for component: LABALBU Current Inpatient Medications Current Facility-Administered Medications: acetaminophen (Ofirmev) IVPB 1,000 mg, 1,000 mg, IntraVENous, q8h, Christy Lopez MD, Stopped at 06/10/23 2329 enoxaparin (Lovenox) syringe 40 mg, 40 mg, SubCUTAneous, q12h, Fox Saleem MD, 40 mg at 06/08/23 2132 heparin flush injection 250 Units, 250 Units, IntraCATHeter, q12h, Suze Cuba MD, 250 Units at 06/11/23 0507 heparin flush injection 250 Units, 250 Units, IntraCATHeter, PRN, Suze Cuba MD metoprolol tartrate (Lopressor) injection 5 mg, 5 mg, IntraVENous, q6h PRN, Mai Ly MD metoprolol tartrate (Lopressor) tablet 25 mg, 25 mg, Oral, BID, Jeannine Worthy MD, 25 mg at 06/10/232032 naloxone (Narcan) injection 0.4 mg, 0.4 mg, IntraVENous, q5 min PRN, Memo Campbell MD ondansetron (Zofran) injection 4 mg, 4 mg, IntraVENous, q6h PRN, Christy Lopez MD, 4 mg at 06/07/23 0212 pantoprazole (ProtoNix) 40 mg in sodium chloride (PF) 0.9 % 10 mL injection, 40 mg, IntraVENous, BID, Christy Lopez MD, 40 mg at 06/11/23 0507 promethazine (Phenergan) tablet 25 mg, 25 mg, Oral, q6h PRN OR promethazine (Phenergan) suppository 25 mg, 25 mg, Rectal, q12h PRN OR promethazine (Phenergan) injection 25 mg, 25 mg, IntraMUSCular, q4h PRN, Amber Espinoza MD, 25 mg at 06/07/23 1318 scopolamine (Transderm-Scop) patch 1 patch, 1 patch, TransDERmal, q72h, Weston Pagan MD, 1 patch at 06/10/23 1815 sodium chloride 0.9% (NS) flush 10 mL, 10 mL, IntraCATHeter, q12h, Suze Cuba MD, 10 mL at 06/11/23 0507 sodium chloride 0.9% (NS) flush 10 mL, 10 mL, IntraCATHeter, PRN, Suze Cuba MD ASSESSMENT & PLAN Anne Marie Peterson is a 27 y.o. female s/p recent LRYGB with concern for pancreatitis. Upper GI, MRI, and RUQ US unremarkable. - continue regular diet - pain control prn - Lovenox, SCDs, ambulation - encourage IS use - discharge home today Jeannine Worthy MD Bariatric Surgery Fellow Associated attestation - Memo Campbell MD - 06/11/2023 9:49 AM EDT Images from the original note were not included. [facility] - Surgery [facility] Physicians Surgery Patient Name: Anne Marie Peterson Date: 06/11/23 No acute overnight, continues to tolerate diet and feels well. Pain resolved. BP 129/78 (BP Location: Right arm, Patient Position: Sitting) Pulse 77 Temp (!) 35.6 C (96 F) (Temporal) Resp 16 Ht 5' 5.24 (1.657 m) Wt (!) 372 lb (169 kg) SpO2 98% BMI 61.46 kg/m CBC: Recent Labs 06/09/23 0420 06/10/23 0236 WBC 6.0 5.9 HGB 9.8* 9.5* HCT 32.2* 31.1* PLT 307 238 BMP: Recent Labs 06/09/23 1304 06/10/23 0236 06/10/23 1739 06/11/23 0159 NA 137 137 -- 136 K 3.7 3.2* 4.5 3.6 CL 102 104 -- 105 CO2 29 29 -- 28 BUN 9 10 -- 10 CREATININE 0.42* 0.40* -- 0.42* GLUCOSE 102* 95 -- 91 Hepatic:No results for input(s): ALKPHOS, ALT, AST, PROT, BILITOT, BILIDIR in the last 72 hours. No lab exists for component: LABALBU Abdomen: Soft, nontender, nondistended. Plan: D/c home with OP f/u I personally supervised my Resident/Surgical Fellow in the evaluation [facility] home with outpatient follow-up MD home with outpatient follow-up management of Anne Marie Peterson in the development of a treatment plan for this patient. I personally interviewed the patient and performed an individual physical examination. In addition, I discussed the patient's condition and treatment options with them. I have also reviewed and agree with the past medical, family and social history and care plan unless otherwise noted. All of the patient's questions were answered. * Jeannine Worthy MD - 06/10/2023 8:04 AM EDT Images from the original note were not included. Department of Surgery Progress Note PATIENT NAME: Anne Marie Peterson : 1995 ATTENDING PHYSICIAN: Seth Leal DO ADMIT DATE: 06/03/2023 TODAY'S DATE: 06/10/2023 SUBJECTIVE Patient feeling back to normal this morning. Tolerating full liquid diet yesterday and is hungry for regular diet this AM. OBJECTIVE VITALS: Patient Vitals for the past 24 hrs: BP Temp Temp src Pulse Resp SpO2 Height 06/10/23 0739 107/61 (!) 35.9 C (96.7 F) Temporal 75 16 98 % -- 06/10/23 0554 102/62 36.8 C (98.2 F) Temporal 66 -- 95 % -- 06/10/23 0042 123/65 (!) 35.9 C (96.7 F) Temporal 64 -- 96 % -- 06/09/23 1944 137/85 36.4 C (97.5 F) Temporal 68 -- 99 % -- 06/09/23 1643 127/82 36.3 C (97.4 F) Temporal 79 18 99 % -- 06/09/23 1238 117/78 36.3 C (97.3 F) Temporal 71 18 94 % -- 06/09/23 0943 -- -- -- -- -- -- 5' 5.24 (1.657 m) 06/09/23 0836 131/78 36.1 C (96.9 F) Temporal 63 16 95 % -- PHYSICAL EXAM: Constitutional: NAD, Resting in bed Cardiac: regular rate Chest: Resp effort easy and unlabored Abdomen: soft, incisions well healed EXT: extremities normal, atraumatic, no cyanosis or edema INTAKE/OUTPUT: I/O last 3 completed shifts: In: 1487.5 (8.8 mL/kg) Out: - (0 mL/kg) Weight: 168.7 kg No intake/output data recorded. Data CBC: Recent Labs 06/08/23 0342 06/09/23 0420 06/10/23 0236 WBC 7.3 6.0 5.9 HGB 10.7* 9.8* 9.5* HCT 35.9 32.2* 31.1* PLT 360 307 238 BMP: Recent Labs 06/09/23 0420 06/09/23 1304 06/10/23 0236 NA 138 137 137 K 3.0* 3.7 3.2* CL 102 102 104 CO2 31* 29 29 BUN 8 9 10 CREATININE 0.42* 0.42* 0.40* GLUCOSE 107* 102* 95 HEPATIC: Recent Labs 06/08/23 034 ALKPHOS 60 ALT 175* AST 121* PROT 6.1* BILITOT 1.6* BILIDIR 0.0 Current Inpatient Medications Current Facility-Administered Medications: acetaminophen (Ofirmev) IVPB 1,000 mg, 1,000 mg, IntraVENous, q8h, Christy Lopze MD, Stopped at 06/10/23 0050 Adult TPN Central Line, 1,680 mL, IntraVENous, Continuous TPN, Suze Cuba MD enoxaparin (Lovenox) syringe 40 mg, 40 mg, SubCUTAneous, q12h, Fox Saleem MD, 40 mg at 06/08/23 2132 heparin flush injection 250 Units, 250 Units, IntraCATHeter, q12h, Suze Cuba MD, 250 Units at 06/09/23 0412 heparin flush injection 250 Units, 250 Units, IntraCATHeter, PRN, Suze Cuba MD metoprolol tartrate (Lopressor) injection 5 mg, 5 mg, IntraVENous, q6h PRN, Mai Ly MD metoprolol tartrate (Lopressor) tablet 25 mg, 25 mg, Oral, BID, Jeannine Worthy MD, 25 mg at 06/09/23 1481 naloxone (Narcan) injection 0.4 mg, 0.4 mg, IntraVENous, q5 min PRN, Memo Campbell MD ondansetron (Zofran) injection 4 mg, 4 mg, IntraVENous, q6h PRN, Christy Lopez MD, 4 mg at 06/07/23 0212 pantoprazole (ProtoNix) 40 mg in sodium chloride (PF) 0.9 % 10 mL injection, 40 mg, IntraVENous, BID, Christy Lopez MD, 40 mg at 06/10/23 0653 promethazine (Phenergan) tablet 25 mg, 25 mg, Oral, q6h PRN OR promethazine (Phenergan) suppository 25 mg, 25 mg, Rectal, q12h PRN OR promethazine (Phenergan) injection 25 mg, 25 mg, IntraMUSCular, q4h PRN, Amber Espinoza MD, 25 mg at 06/07/23 1318 scopolamine (Transderm-Scop) patch 1 patch, 1 patch, TransDERmal, q72h, Weston Pagan MD, 1 patch at 06/07/232051 sodium chloride 0.9% (NS) flush 10 mL, 10 mL, IntraCATHeter, q12h, uSze Cuba MD, 10 mL at 06/10/23 0415 sodium chloride 0.9% (NS) flush 10 mL, 10 mL, IntraCATHeter, PRN, Suze Cuba MD ASSESSMENT & PLAN Anne Marie Peterson is a 27 y.o. female s/p recent LRYGB with concern for pancreatitis. Upper GI, MRI, and RUQ US unremarkable. - advance to regular diet - discontinue TPN - pain control prn - Lovenox, SCDs, ambulation - encourage IS use - anticipate discharge home tomorrow morning if continues to do well Jeannine Worthy MD Bariatric Surgery Fellow Associated attestation - Memo Campbell MD - 06/10/2023 3:56 PM EDT Images from the original note were not included. [facility] - Surgery [facility] Physicians Surgery Patient Name: Anne Marie Peterson Date: 06/10/23 Feels well today, looks well, states that she is back to baseline. No abdominal pain. Tolerating diet. Plans to wean TPN today. BP 104/65 (BP Location: Right arm, Patient Position: Sitting) Pulse 83 Temp 36.1 C (97 F) (Temporal) Resp 16 Ht 5' 5.24 (1.657 m) Wt (!) 372 lb (169 kg) SpO2 96% BMI 61.46 kg/m CBC: Recent Labs 06/08/23 0342 06/09/23 0420 06/10/23 0236 WBC 7.3 6.0 5.9 HGB 10.7* 9.8* 9.5* HCT 35.9 32.2* 31.1* PLT 360 307 238 BMP: Recent Labs 06/09/23 0420 06/09/23 1304 06/10/23 0236 NA 138 137 137 K 3.0* 3.7 3.2* CL 102 102 104 CO2 31* 29 29 BUN 8 9 10 CREATININE 0.42* 0.42* 0.40* GLUCOSE 107* 102* 95 Hepatic: Recent Labs 06/08/232 ALKPHOS 60 ALT 175* AST 121* PROT 6.1* BILITOT 1.6* BILIDIR 0.0 Abdomen: Soft, nontender, nondistended. Plan: Pancreatitis, improving Tolerating p.o. Wean TPN Discharge in a.m. pending any new issues I personally supervised my Resident/Surgical Fellow in the evaluation and management of Anne Marie Peterson in the development of a treatment plan for this patient. I personally interviewed the patient and performed an individual physical examination. In addition, I discussed the patient's condition and treatment options with them. I have also reviewed and agree with the past medical, family and social history and care plan unless otherwise noted. All of the patient's questions were answered. * Suze Cuba MD - 06/10/2023 6:53 AM EDT Images from the original note were not included. Nutrition Progress Note Anne Marie Peterson : 1995(27 y.o.) Date: 06/10/23 CC: TPN Interval events: I/Os remain very incomplete, all po intake and stool output are blank both shifts. Per pt, she is tolerating po well, no n/v. Diet: Adult diet Full liquid Adult TPN Central Line I/Os: Intake/Output Summary (Last 24 hours) at 06/10/2023 0653 Last data filed at 06/10/2023 0443 Gross per 24 hour Intake 744.33 ml Output -- Net 744.33 ml Weight: ABW: Admission weight: (!) 169 kg (372 lb) Body mass index is 61.46 kg/m . Line: PICC L basilic DL @53, pulled back 4cm Date placed: 06/07/23 Objective: Vitals: 06/09/23 1643 06/09/23 1944 06/10/23 0042 06/10/23 0554 BP: 127/82 137/85 123/65 102/62 BP Location: Right arm Right arm Right arm Patient Position: Sitting Sitting Sitting Pulse: 79 68 64 66 Resp: 18 Temp: 36.3 C (97.4 F) 36.4 C (97.5 F) (!) 35.9 C (96.7 F) 36.8 C (98.2 F) TempSrc: Temporal Temporal Temporal Temporal SpO2: 99% 99% 96% 95% Weight: Height: Physical Exam Vitals and nursing note reviewed. Constitutional: Comments: WD female sitting up in bed, awake/alert, NAD Cardiovascular: Rate and Rhythm: Normal rate and regular rhythm. Pulmonary: Breath sounds: No stridor. Abdominal: Palpations: Abdomen is soft. Tenderness: There is no guarding or rebound. Skin: General: Skin is warm. Coloration: Skin is not jaundiced. CBC: Recent Labs 06/08/23 0342 06/09/23 0420 06/10/23 0236 WBC 7.3 6.0 5.9 HGB 10.7* 9.8* 9.5* HCT 35.9 32.2* 31.1* MCV 72.8* 73.3* 73.9* PLT 360 307 238 TPN LABS: Recent Labs 06/08/23 0342 06/09/23 0420 06/09/23 1304 06/10/23 0236 NA 137 138 137 137 K 3.1* 3.0* 3.7 3.2* CL 104 102 102 104 CO2 24 31* 29 29 BUN 4* 8 9 10 CREATININE 0.43* 0.42* 0.42* 0.40* GLUCOSE 109* 107* 102* 95 CALCIUM 7.9* 8.2* 8.6 8.3* CAION 3.20* -- -- 3.70* MG 1.9 2.2 -- 2.1 PHOS 3.0 4.8* -- 4.0 Recent Labs 06/07/23 1804 06/08/23 0342 AST -- 121* ALT -- 175* BILITOT -- 1.6* ALKPHOS -- 60 TRIG 103 142 Lab Results Component Value Date ZINC 84.4 12/14/2022 Assessment: Malnutrition -pt meets ASPEN criteria for severe malnutrition: decreased po intake, significant weight loss -TPN initiated 06/06 at 20 kcals/kg IBW, mild refeeding so non protein macros not advanced -now tolerating adequate po Hypokalemia -a little better after another 40 meq bolus yesterday 06/08 and increase to 107 meq in TPN -->plan to taper off TPN today but may need to bolus outside of TPN Hypocalcemia -in setting of acute pancreatitis, receiving 3 gms (13.8 meq) in TPN Electrolytes -mag and phos are both in better ranges LRYGB Pancreatitis -BMI 65 prior to surgery-->s/p uncomplicated elective laparoscopic sandra-en-Y procedure 05/10/23 -presented to [facility] 05/19/23 with abdominal pain, concern for small area of hemoperitoneum on CTAP, hgb stable, discharged home 05/21/23 -returned to ER 06/03/23 with n/v x 2 days, lipase 3563, CTAP unremarkable -->lipase gradually improving Paroxysmal atrial fibrillation -initial dx 11/2022, follows with cardiology, no OAC -episode with RVR yesterday, pt's metoprolol had been on hold, converted back to NSR, picc placed with tip in RA, which I would not expect to cause arrhythmia, but line pulled back 4 cm Hepatic steatosis -noted on CTAP 05/19/23, again on US 06/08/23 Transaminitis -values normal 05/19/23, trended up this admission, both seemed to have peaked on 06/06, trending down as of yesterday 06/07 Hyperbilirubinemia -normal 05/19/23, up to 2 this admission, trended down to 1.6 on 06/07 MOE -CPAP HTN Mixed hyperlipidemia PTSD Arthralgias Anemia PLAN SUMMARY, and as above: -discussed with Dr. Campbell, plan is to taper off TPN with current bag, decrease rate by 1/2 at 4PM today and dc TPN at 6PM -TPN protocol labs dc'd but will recheck lytes in a.m. TPN macronutrient calculations: Ht: 5' Actual BW: 372 lbs/ 169 kgs IBW: 125 lbs/ 56.8 kgs Start TOTAL Kcal = 1136 @ 20 Kcal/kg of IBW Goal TOTAL Kcal = 1420 @ 25 Kcal/kg of IBW Protein: 90 grams @ 1.6 grams/kg of IBW for 360 kcal Carbs: Start- 450 Kcal Lipid: Start- 330 Kcal Goal- 640 Kcal Goal- 420 Kcal I spent minimum 25 minutes caring for this patient today: examining the patient, obtaining history,reviewing and personally interpreting labs, reviewing records from previous facilities, ordering medications/tests as indicated and documenting in the record. Discussed with primary service and patient. * Rosa Self, RD - 06/09/2023 1:22 PM EDT Nutrition Assessment Type and Reason for Visit: Reassess Nutrition Recommendations/Plan: Continue with [place] diet. Continue with current TPN. Monitor nutritional status. Malnutrition Assessment: Malnutrition Status: Severe malnutrition (has not has substantial or adequate nutrition during recovery s/p LRYGB 05/10/23) Context: Acute Illness Findings of the 6 clinical characteristics of malnutrition: Energy Intake: 50% or less of estimated energy requirements for 5 or more days Weight Loss: 5% over 1 month Body Fat Loss: No significant body fat loss Muscle Mass Loss: No significant muscle mass loss Fluid Accumulation: No significant fluid accumulation Final Touch Up Painter Strength: Not Performed Nutrition Assessment: Pt is a [id number]-female with PMH of s/p elective LRYGB (05/10/23) who presents for concern for pancreatitis; +N+V and abd pain, decreased appetite and intake. She presented to [facility] 05/19/23 with abdominal pain, concern for small area of hemoperitoneum on CTAP, hgb stable, discharged home 05/21/23; returned to ER 06/03/23 with n/v x 2 days, lipase 3563. CTAP unremarkable but lipase >3000. Patientadmitted for further evaluation, gut rest. Dr Cuba consulted for parenteral nutrition; started 06/07/23; had mild re-feeding syndrome. RD visited pt; she tolerated a small amount of pudding, is tolerating clear liquids better. She politely declines ONS, especially Ensure as she has a reaction to milk products, including milk protein. Estimated Daily Nutrient Needs: Energy Requirements Based On: Kcal/kg Weight Used for Energy Requirements: [place] Weight for Energy Calculation (kg): 57 kg Total Energy Requirements (kcals/day): 2913-6326 (20-25 kcals/kg) Weight Used for Protein Requirements: [place] Weight in Kg Used for Protein Requirements: 57 kg Estimated Total Protein (g/day): 91-103 (1.6 g/kg) Estimated Daily Total Fluid (ml/day): per MD Nutrition Related Findings: +BS, +N/V 06/07/23, +1 BLE edema Wound Type: Surgical Incision Net IO Since Admission: 1,033.17 mL [06/09/23 1322] Current Nutrition Therapies: Adult TPN Central Line Adult diet Full liquid Adult TPN Central Line Current Oral Intake Average Meal Intake: 51-75%, 26-50% Average Supplements Intake: None Ordered Anthropometric Measures: Height: 165.7 cm (5' 5.24) Current Body Weight: 169 kg (372 lb) Weight Source: Standing Scale Usual Body Weight: 184 kg (405 lb) % Weight Change (Calculated): -8.1 [place] Body Weight (lbs) (Calculated): 126 lbs [place] Body Weight (Kg) (Calculated): 57 kg % [place] Body Weight (Calculated): 295.2 % BMI (kg/m2) (Calculated): 61.5 Weight Adjustment For: No Adjustment BMI Categories: Obese Class 3 (BMI 40.0 or greater) Wt Readings from Last 10 Encounters: 06/07/23 (!) 169 kg (372 lb) 05/27/23 (!) 169 kg (372 lb 6.4 oz) 05/19/23 (!) 172 kg (380 lb) 05/10/23 (!) 184 kg (405 lb 8 oz) 05/03/23 (!) 183 kg (403 lb 14.4 oz) 04/08/23 (!) 183 kg (403 lb) 02/05/23 (!) 179 kg (394 lb 3.2 oz) 01/25/23 (!) 179 kg (395 lb) 01/18/23 (!) 180 kg (397 lb 9.6 oz) 01/12/23 (!) 179 kg (394 lb) TPN LABS: Recent Labs 06/07/2322206/07/23 18006/08/23 0342 06/09/23 0420 NA 141 140 137 138 K 3.3* 3.5 3.1* 3.0* CL 107 105 104 102 CO2 23 25 24 31* BUN 3* 2* 4* 8 CREATININE 0.53 0.45* 0.43* 0.42* GLUCOSE 86 87 109* 107* CALCIUM 8.4 7.9* 7.9* 8.2* CAION -- -- 3.20* -- MG 1.5* -- 1.9 2.2 PHOS 3.5 2.6 3.0 4.8* K+ - decreased. Phos - elevated. Recent Labs 06/07/2322206/07/23180306/08/23 0342 AST 157* -- 121* ALT 237* -- 175* BILITOT 1.7* -- 1.6* ALKPHOS 63 -- 60 TRIG -- 103 142 Lab Results Component Value Date ZINC 84.4 12/14/2022 Nutrition Diagnosis: Severe malnutrition, In context of acute illness or injury related to altered GI function, inadequate protein-energy intake as evidenced by GI abnormality, nausea, vomiting, Criteria as identified inmalnutrition assessment, poor intake prior to admission, intake 0-25%, weight loss greater than or equal to 5% in 1 month, lab values Nutrition Interventions: Nutrition Education/Counseling: No recommendation at this time Coordination of Nutrition Care: Continue to monitor while inpatient Plan of Care discussed with: pt Goals: Previous Goal Met: Progressing toward Goal(s) Goals: Tolerate nutrition support at goal rate, by next RD assessment Nutrition Monitoring and Evaluation: Behavioral-Environmental Outcomes: None Identified Food/Nutrient Intake Outcomes: IVF Intake, Diet Advancement/Tolerance, Parenteral Nutrition Intake/Tolerance Physical Signs/Symptoms Outcomes: Biochemical Data, GI Status, Nausea or Vomiting, Fluid Status or Edema, Hemodynamic Status, Weight, Skin, Nutrition Focused Physical Findings Discharge Planning: Too soon to determine Rosa Self RD,LD,[facility] [place] [facility] Contact: *[phone] or [employer] Chat * Suze Cuba MD - 06/09/2023 8:07 AM EDT Images from the original note were not included. Nutrition Progress Note Anne Maire Peterson : 1995(27 y.o.) Date: 06/09/23 CC: TPN Interval events: PO intake BLANK for both shifts yesterday in I/Os. Pt states she did tolerate some clears. Nausea intermittently which subsides gradually, just had some nausea after having fulls but starting to feel better. Denies pain. Having BMs Diet: Adult TPN Central Line Adult diet Full liquid I/Os: Intake/Output Summary (Last 24 hours) at 06/09/2023 0807 Last data filed at 06/09/2023 0558 Gross per 24 hour Intake 743.17 ml Output -- Net 743.17 ml Weight: ABW: Admission weight: (!) 169 kg (372 lb) Body mass index is 61.43 kg/m . Line: PICC L basilic DL @53, pulled back 4cm Date placed: 06/07/23 Objective: Vitals: 06/08/23 1156 06/08/23 1617 06/08/23 1935 06/09/23 0517 BP: 117/71 120/77 128/83 129/75 BP Location: Right arm Right arm Right arm Right arm Patient Position: Lying Sitting Sitting Sitting Pulse: 74 71 80 67 Resp: 17 Temp: 36.2 C (97.2 F) 36.8 C (98.2 F) (!) 35.8 C (96.4 F) 36.5 C (97.7 F) TempSrc: Temporal Temporal Temporal Temporal SpO2: 94% 100% 98% 97% Weight: Height: Physical Exam Vitals and nursing note reviewed. Constitutional: Comments: WD morbidly obese WF sitting up in bed, awake/alert, conversant, NAD HENT: Mouth/Throat: Mouth: Mucous membranes are moist. Pharynx: Oropharynx is clear. Cardiovascular: Rate and Rhythm: Normal rate and regular rhythm. Comments: No significant peripheral edema Pulmonary: Effort: Pulmonary effort is normal. No respiratory distress. Breath sounds: No wheezing. Abdominal: Palpations: Abdomen is soft. Comments: Non tender to palp, some BS Skin: General: Skin is warm and dry. Coloration: Skin is not jaundiced. CBC: Recent Labs 06/07/2322206/08/2334106/09/23 0420 WBC 6.6 7.3 6.0 HGB 10.8* 10.7* 9.8* HCT 35.8 35.9 32.2* MCV 73.4* 72.8* 73.3* PLT 398 360 307 TPN LABS: Recent Labs 06/07/2322206/07/23180306/08/2334106/09/23 0420 NA 141 140 137 138 K 3.3* 3.5 3.1* 3.0* CL 107 105 104 102 CO2 24 31* BUN 3* 2* 4* 8 CREATININE 0.53 0.45* 0.43* 0.42* GLUCOSE 86 87 109* 107* CALCIUM 8.4 7.9* 7.9* 8.2* CAION -- -- 3.20* -- MG 1.5* -- 1.9 2.2 PHOS 3.5 2.6 3.0 4.8* Recent Labs 06/07/2322206/07/23180306/08/23341 AST 157* -- 121* ALT 237* -- 175* BILITOT 1.7* -- 1.6* ALKPHOS 63 -- 60 TRIG -- 103 142 Lab Results Component Value Date ZINC 84.4 12/14/2022 Assessment: Malnutrition -pt meets ASPEN criteria for severe malnutrition: decreased po intake, significant weight loss -TPN initiated yesterday 06/06 at 20 kcals/kg IBW, mild refeeding -advancing to fulls today, not taking a lot but tolerating what she is taking Hypokalemia -persists in spite of bolus and increase to 80 meq in tpn yesterday, bolus again today and increasetotal potassium in tpn to 107 meq Electrolytes -phos with big jump up, begin to decrease in tpn -low mag improving, push into high normal range to help with potassium, 3 gms/24meq in bag -hypocalcemia, 3 gms/13.8 meq, in tpn, no further increase due to solubility with phos, recheck ionca in a.m. -high serum bicarb, limited acetate in tpn, nacl increased yesterday hypokalemia, in spite of bolus and significant amount in tpn, potassium dropped further, bolus and increase today -phos dropped to <3.5, increase in tpn -hypocalcemia, in setting of acute pancreatitis, increase as able per solubility in tpn -serum pH 7.48, minimal acetate in TPN, increase NaCL sl -hypomagnesemia, improving, keep 24 meq/3 gms in bag today to push mag up into high nl range while potassium low LRYGB Pancreatitis -BMI 65 prior to surgery-->s/p uncomplicated elective laparoscopic sandra-en-Y procedure 05/10/23 -presented to [facility] 05/19/23 with abdominal pain, concern for small area of hemoperitoneum on CTAP, hgb stable, discharged home 05/21/23 -returned to ER 06/03/23 with n/v x 2 days, lipase 3563, CTAP unremarkable -->lipase continues toslowly trend down, lipase trending down again today 06/08 at 1,682 Paroxysmal atrial fibrillation -initial dx 11/2022, follows with cardiology, no OAC -episode with RVR yesterday, pt's metoprolol had been on hold, converted back to NSR, picc placed with tip in RA, which I would not expect to cause arrhythmia, but line pulled pace 4 cm Hepatic steatosis -noted on CTAP 05/19/23, again on US today 06/08/23 Transaminitis -values normal 05/19/23, trended up this admission, both seemed to have peaked on 06/06, trending down as of yesterday 06/07 Hyperbilirubinemia -normal 05/19/23, up to 2 this admission, trended down to 1.6 yesterday 06/07 MOE -CPAP HTN Mixed hyperlipidemia PTSD Arthralgias Anemia PLAN SUMMARY, and as above: -re-bolus potassium again today, adjust in TPN -repeat zinc level pending -phos much better, trial goal non protein macros -starting FULLS, continue TPN today due to severity of her malnutrition, discussed overlapping TPN with po intake with pt-->evaluate need to continue TPN daily as pt improves TPN macronutrient calculations: Ht: 5' 5 Actual BW: 372 lbs/ 169 kgs IBW: 125 lbs/ 56.8 kgs Start TOTAL Kcal = 1136 @ 20 Kcal/kg of IBW Goal TOTAL Kcal = 1420 @ 25 Kcal/kg of IBW Protein: 90 grams @ 1.6 grams/kg of IBW for 360 kcal Carbs: Start- 450 Kcal Lipid: Start- 330 Kcal Goal- 640 Kcal Goal- 420 Kcal I spent minimum 35 minutes caring for this patient today: examining the patient, obtaining history,reviewing and personally interpreting labs, reviewing records from previous facilities, ordering medications/tests as indicated and documenting in the record. * Jeannine Worthy MD - 06/09/2023 6:56 AM EDT Images from the original note were not included. Department of Surgery Progress Note PATIENT NAME: Anne Marie Peterson : 1995 ATTENDING PHYSICIAN: Seth Leal DO ADMIT DATE: 06/03/2023 TODAY'S DATE: 06/09/2023 SUBJECTIVE Patient continues to feel better. Tolerated CLD yesterday. OBJECTIVE VITALS: Patient Vitals for the past 24 hrs: BP Temp Temp src Pulse Resp SpO2 06/09/23 0517 129/75 36.5 C (97.7 F) Temporal 67 -- 97 % 06/08/23 1935 128/83 (!) 35.8 C (96.4 F) Temporal 80 -- 98 % 06/08/23 1617 120/77 36.8 C (98.2 F) Temporal 71 17 100 % 06/08/23 1156 117/71 36.2 C (97.2 F) Temporal 74 17 94 % 06/08/23 0800 109/69 36.9 C (98.5 F) Temporal 82 17 96 % PHYSICAL EXAM: Constitutional: NAD, Resting in bed Cardiac: regular rate Chest: Resp effort easy and unlabored Abdomen: soft, incisions well healed EXT: extremities normal, atraumatic, no cyanosis or edema INTAKE/OUTPUT: I/O last 3 completed shifts: In: 290 (1.7 mL/kg) [P.O.:290] Out: 0 (0 mL/kg) Weight: 168.7 kg I/O this shift: In: 743.2 Out: - Data CBC: Recent Labs 06/07/2322206/08/2334106/09/23 0420 WBC 6.6 7.3 6.0 HGB 10.8* 10.7* 9.8* HCT 35.8 35.9 32.2* PLT 398 360 307 BMP: Recent Labs 06/07/23 1804 06/08/232 06/09/23 0420 NA 140 137 138 K 3.5 3.1* 3.0* CL 105 104 102 CO2 25 24 31* BUN 2* 4* 8 CREATININE 0.45* 0.43* 0.42* GLUCOSE 87 109* 107* HEPATIC: Recent Labs 06/07/2322206/08/23341 ALKPHOS 63 60 ALT 237* 175* AST 157* 121* PROT 7.0 6.1* BILITOT 1.7* 1.6* BILIDIR -- 0.0 Current Inpatient Medications Current Facility-Administered Medications: acetaminophen (Ofirmev) IVPB 1,000 mg, 1,000 mg, IntraVENous, q8h, Christy Lopez MD, Stopped at 06/09/23 0006 Adult TPN Central Line, 1,680 mL, IntraVENous, Continuous TPN, Suze Cuba MD, Last Rate: 70 mL/hr at 06/09/23557, Rate Verify at 06/09/23557 enoxaparin (Lovenox) syringe 40 mg, 40 mg, SubCUTAneous, q12h, Fox Saleem MD, 40 mg at 04/16/24 2132 heparin flush injection 250 Units, 250 Units, IntraCATHeter, q12h, Suze Cuba MD, 250 Units at 06/09/23 0412 heparin flush injection 250 Units, 250 Units, IntraCATHeter, PRN, Suze Cuba MD metoprolol tartrate (Lopressor) injection 5 mg, 5 mg, IntraVENous, q6h PRN, Mai Ly MD naloxone (Narcan) injection 0.4 mg, 0.4 mg, IntraVENous, q5 min PRN, Memo Campbell MD ondansetron (Zofran) injection 4 mg, 4 mg, IntraVENous, q6h PRN, Christy Lopez MD, 4 mg at 06/07/23 0212 pantoprazole (ProtoNix) 40 mg in sodium chloride (PF) 0.9 % 10 mL injection, 40 mg, IntraVENous, BID, Christy Lopez MD, 40 mg at 06/09/23 0558 promethazine (Phenergan) tablet 25 mg, 25 mg, Oral, q6h PRN OR promethazine (Phenergan) suppository 25 mg, 25 mg, Rectal, q12h PRN OR promethazine (Phenergan) injection 25 mg, 25 mg, IntraMUSCular, q4h PRN, Amber Espinoza MD, 25 mg at 06/07/23 1318 scopolamine (Transderm-Scop) patch 1 patch, 1 patch, TransDERmal, q72h, Weston Pagan MD, 1 patch at 06/07/232051 sodium chloride 0.9% (NS) flush 10 mL, 10 mL, IntraCATHeter, q12h, Suze Cuba MD, 10 mL at 06/09/23 0412 sodium chloride 0.9% (NS) flush 10 mL, 10 mL, IntraCATHeter, PRN, Suze Cuba MD ASSESSMENT & PLAN Anne Marie Peterson is a 27 y.o. female s/p recent LRYGB with concern for pancreatitis. Upper GI and MRI unremarkable. - appreciate cardiology recommendations for a fib with RVR - continue clear liquid diet - continue TPN for intolerance of PO intake - scop patch and phenergan for nausea - pain control prn - SCDs, ambulation - encourage IS use Jeannine Worthy MD Bariatric Surgery Fellow Associated attestation - Memo Campbell MD - 06/09/2023 11:12 AM EDT Images from the original note were not included. [facility] - Surgery [facility] Physicians Surgery Patient Name: Anne Marie Peterson Date: 06/09/23 Daily improvement. Hungry for more food. Will advance to full liquids. Lipase still around 1600 however she feels better, no emesis. BP 131/78 Pulse 63 Temp 36.1 C (96.9 F) (Temporal) Resp 16 Ht 5' 5.25 (1.657 m) Wt (!) 372 lb (169 kg) SpO2 95% BMI 61.43 kg/m CBC: Recent Labs 06/07/23 0223 06/08/23 0342 06/09/23 0420 WBC 6.6 7.3 6.0 HGB 10.8* 10.7* 9.8* HCT 35.8 35.9 32.2* PLT 398 360 307 BMP: Recent Labs 06/07/23 1804 06/08/23 0342 06/09/23 0420 NA 140 137 138 K 3.5 3.1* 3.0* CL 105 104 102 CO2 25 24 31* BUN 2* 4* 8 CREATININE 0.45* 0.43* 0.42* GLUCOSE 87 109* 107* Hepatic: Recent Labs 06/07/23 0223 06/08/23 0342 ALKPHOS 63 60 ALT 237* 175* AST 157* 121* PROT 7.0 6.1* BILITOT 1.7* 1.6* BILIDIR -- 0.0 Abdomen: Soft, approp. tender, nondistended. Plan: Pancreatitis, improving slowly, advance diet to full liquid Continue TPN for nutritional support, anticipate her being in the hospital until at least Wednesday No plans for TPN on discharge VTE prophylaxis Hypokalemia, replace IV I personally supervised my Resident/Surgical Fellow in the evaluation and management of Anne Marie Peterson in the development of a treatment plan for this patient. I personally interviewed the patient and performed an individual physical examination. In addition, I discussed the patient's condition and treatment options with them. I have also reviewed and agree with the past medical, family and social history and care plan unless otherwise noted. All of the patient's questions were answered. * Jeannine Worthy MD - 06/08/2023 7:28 AM EDT Images from the original note were not included. Department of Surgery Progress Note PATIENT NAME: Anne Marie Peterson : 1995 ATTENDING PHYSICIAN: Seth Leal DO ADMIT DATE: 06/03/2023 TODAY'S DATE: 06/08/2023 SUBJECTIVE Patient in a fib with RVR yesterday, back in normal sinus this AM. Did not take much PO intake yesterday, but is feeling less nauseous this AM. OBJECTIVE VITALS: Patient Vitals for the past 24 hrs: BP Temp Temp src Pulse Resp SpO2 Height Weight 06/08/23 0422 114/76 36.2 C (97.2 F) Temporal 76 18 96 % -- -- 06/08/23 0025 117/86 (!) 35.9 C (96.6 F) Temporal 69 16 97 % -- -- 06/08/23 0002 135/78 36.1 C (97 F) Temporal (!) 133 18 97 % -- -- 06/07/23 1915 127/90 37 C (98.6 F) Temporal 73 16 98 % -- -- 06/07/23 1602 143/87 -- -- 82 -- 99 % -- -- 06/07/23 1556 (!) 94/48 36.3 C (97.3 F) Temporal 115 24 99 % -- -- 06/07/23 1520 130/87 -- -- 82 -- -- -- -- 06/07/23 1518 140/83 36.9 C (98.4 F) Temporal 90 (!) 28 100 % -- -- 06/07/23 1420 -- -- -- -- -- -- -- (!) 372 lb (169 kg) 06/07/23 1308 -- -- -- -- -- -- 5' 5.25 (1.657 m) -- 06/07/23 1252 135/80 36.2 C (97.2 F) Temporal 54 16 98 % -- -- 06/07/23 0805 123/76 36.8 C (98.2 F) Temporal 53 16 97 % -- -- PHYSICAL EXAM: Constitutional: NAD, Resting in bed Cardiac: regular rate Chest: Resp effort easy and unlabored Abdomen: soft, incisions well healed EXT: extremities normal, atraumatic, no cyanosis or edema INTAKE/OUTPUT: I/O last 3 completed shifts: In: 290 (1.7 mL/kg) [P.O.:290] Out: 0 (0 mL/kg) Weight: 168.7 kg No intake/output data recorded. Data CBC: Recent Labs 06/06/23 0026 06/07/2322206/08/23341 WBC 6.5 6.6 7.3 HGB 11.2* 10.8* 10.7* HCT 36.7 35.8 35.9 PLT 430 398 360 BMP: Recent Labs 06/07/23 0223 06/07/23 1804 06/08/23 0342 NA 141 140 137 K 3.3* 3.5 3.1* CL 107 105 104 CO2 23 25 24 BUN 3* 2* 4* CREATININE 0.53 0.45* 0.43* GLUCOSE 86 87 109* HEPATIC: Recent Labs 06/06/23 0325 06/07/2322206/08/23 0342 ALKPHOS 53 63 60 ALT 187* 237* 175* AST 134* 157* 121* PROT 6.2* 7.0 6.1* BILITOT 1.7* 1.7* 1.6* BILIDIR -- -- 0.0 Current Inpatient Medications Current Facility-Administered Medications: acetaminophen (Ofirmev) IVPB 1,000 mg, 1,000 mg, IntraVENous, q8h, Christy Lopez MD, Stopped at 06/08/23 0013 Adult TPN Central Line, 1,680 mL, IntraVENous, Continuous TPN, Suze Cuba MD, Last Rate: 70 mL/hr at 06/07/231813, New Bag at 06/07/231813 enoxaparin (Lovenox) syringe 40 mg, 40 mg, SubCUTAneous, q12h, Fox Saleem MD, 40 mg at 06/07/23 2049 heparin flush injection 250 Units, 250 Units, IntraCATHeter, q12h, Suze Cuba MD, 250 Units at 06/07/23 1707 heparin flush injection 250 Units, 250 Units, IntraCATHeter, PRN, Suze Cuba MD metoprolol tartrate (Lopressor) injection 5 mg, 5 mg, IntraVENous, q6h, Fox Saleem MD, 5 mg at 06/08/23 0330 naloxone (Narcan) injection 0.4 mg, 0.4 mg, IntraVENous, q5 min PRN, Memo Campbell MD ondansetron (Zofran) injection 4 mg, 4 mg, IntraVENous, q6h PRN, Christy Lopez MD, 4 mg at 06/07/23 0212 pantoprazole (ProtoNix) 40 mg in sodium chloride (PF) 0.9 % 10 mL injection, 40 mg, IntraVENous, BID, Christy Lopez MD, 40 mg at 06/08/23 0519 potassium chloride 40 mEq in NS 500 mL IVPB (premix), 40 mEq, IntraVENous, Once, Suze Cuba MD promethazine (Phenergan) tablet 25 mg, 25 mg, Oral, q6h PRN OR promethazine (Phenergan) suppository 25 mg, 25 mg, Rectal, q12h PRN OR promethazine (Phenergan) injection 25 mg, 25 mg, IntraMUSCular, q4h PRN, Amber Espinoza MD, 25 mg at 06/07/23 1318 scopolamine (Transderm-Scop) patch 1 patch, 1 patch, TransDERmal, q72h, Weston Pagan MD, 1 patch at 06/07/232051 sodium chloride 0.9% (NS) flush 10 mL, 10 mL, IntraCATHeter, q12h, Suze Cuba MD, 10 mL at 06/08/23 0415 sodium chloride 0.9% (NS) flush 10 mL, 10 mL, IntraCATHeter, PRN, Suze Cuba MD ASSESSMENT & PLAN Anne Marie Peterson is a 27 y.o. female s/p recent LRYGB with concern for pancreatitis. Upper GI and MRI unremarkable. - cardiology consult for a fib with RVR - continue clear liquid diet - TPN initiated for intolerance of PO intake - scop patch and phenergan for nausea - pain control prn - SCDs, ambulation - encourage IS use Jeannine Worthy MD Bariatric Surgery Fellow Associated attestation - Memo Campbell MD - 06/08/2023 12:36 PM EDT Images from the original note were not included. [facility] - Surgery [facility] Physicians Surgery Patient Name: Anne Marie Peterson Date: 06/08/23 Feels much better today, sitting up in bed smiling, nausea improved. On TPN. Lipase downward trending. A-fib improved, back on rate control. BP 117/71 (BP Location: Right arm, Patient Position: Lying) Pulse 74 Temp 36.2 C (97.2 F) (Temporal) Resp 17 Ht 5' 5.25 (1.657 m) Wt (!) 372 lb (169 kg) SpO2 94% BMI 61.43 kg/m CBC: Recent Labs 06/06/23 0026 06/07/233 06/08/23 0342 WBC 6.5 6.6 7.3 HGB 11.2* 10.8* 10.7* HCT 36.7 35.8 35.9 PLT 430 398 360 BMP: Recent Labs 06/07/23 0223 06/07/23 1804 06/08/23 0342 NA 141 140 137 K 3.3* 3.5 3.1* CL 107 105 104 CO2 23 25 24 BUN 3* 2* 4* CREATININE 0.53 0.45* 0.43* GLUCOSE 86 87 109* Hepatic: Recent Labs 06/06/23 0325 06/07/233 06/08/23 0342 ALKPHOS 53 63 60 ALT 187* 237* 175* AST 134* 157* 121* PROT 6.2* 7.0 6.1* BILITOT 1.7* 1.7* 1.6* BILIDIR -- -- 0.0 Abdomen: Soft, nontender, nondistended. Plan: Ultrasound, 6 mm common duct, monitor labs A-fib, stable, heart rate 72, appreciate cardiology input Nausea, improving, continue TPN for nutrition Pancreatitis, stable, continue TPN will advance diet as symptoms mansi All of her questions were answered her satisfaction, she is happy today that she is making progress I personally supervised my Resident/Surgical Fellow in the evaluation and management of Anne Marie Peterson in the development of a treatment plan for this patient. I personally interviewed the patient and performed an individual physical examination. In addition, I discussed the patient's condition and treatment options with them. I have also reviewed and agree with the past medical, family and social history and care plan unless otherwise noted. All of the patient's questions were answered. * Suze Cuba MD - 06/08/2023 6:48 AM EDT Images from the original note were not included. Nutrition Progress Note Anne Marie Peterson : 1995(27 y.o.) Date: 06/08/23 CC: TPN Interval events: Feeling a little better today, nausea improved, minimal discomfort. Had episode afib with RVR yesterday afternoon, back in sinus Diet: Adult diet Clear liquid Adult TPN Central Line I/Os: Intake/Output Summary (Last 24 hours) at 06/08/2023 0739 Last data filed at 06/08/2023 0613 Gross per 24 hour Intake 290 ml Output 0 ml Net 290 ml Weight: ABW: Admission weight: (!) 169 kg (372 lb) Body mass index is 61.43 kg/m . Line: PICC L basilic DL @53, pulled back 4cm Date placed: 06/07/23 Objective: Vitals: 06/07/23 1915 06/08/23 0002 06/08/23 0025 06/08/23 0422 BP: 127/90 135/78 117/86 114/76 BP Location: Right arm Right arm Right arm Patient Position: Lying Lying Lying Pulse: 73 (!) 133 69 76 Resp: 16 18 16 18 Temp: 37 C (98.6 F) 36.1 C (97 F) (!) 35.9 C (96.6 F) 36.2 C (97.2 F) TempSrc: Temporal Temporal Temporal Temporal SpO2: 98% 97% 97% 96% Weight: Height: Physical Exam Vitals and nursing note reviewed. Constitutional: Comments: WD WF sitting up in chair, smiling, conversant, NAD HENT: Mouth/Throat: Mouth: Mucous membranes are moist. Pharynx: Oropharynx is clear. Cardiovascular: Rate and Rhythm: Normal rate and regular rhythm. Pulmonary: Effort: Pulmonary effort is normal. No respiratory distress. Breath sounds: No wheezing. Abdominal: Palpations: Abdomen is soft. Comments: +BS, no increase in discomfort/nausea with light palp Musculoskeletal: Comments: No obvious loss of muscle mass or fat stores Minimal peripheral edema, small amount LEs but has been up in chair Skin: General: Skin is warm. Coloration: Skin is not jaundiced. Neurological: General: No focal deficit present. CBC: Recent Labs 06/06/232506/07/2322206/08/23341 WBC 6.5 6.6 7.3 HGB 11.2* 10.8* 10.7* HCT 36.7 35.8 35.9 MCV 72.4* 73.4* 72.8* PLT 430 398 360 TPN LABS: Recent Labs 06/06/2332406/07/2322206/07/23180306/08/23341 NA 139 141 140 137 K 3.2* 3.3* 3.5 3.1* CL 107 107 105 104 CO2 21* 23 25 24 BUN 2* 3* 2* 4* CREATININE 0.52 0.53 0.45* 0.43* GLUCOSE 83 86 87 109* CALCIUM 8.3* 8.4 7.9* 7.9* CAION -- -- -- 3.20* MG 1.6 1.5* -- 1.9 PHOS -- 3.5 2.6 3.0 Recent Labs 06/06/2332406/07/2322206/07/23180306/08/23341 AST 134* 157* -- 121* ALT 187* 237* -- 175* BILITOT 1.7* 1.7* -- 1.6* ALKPHOS 53 63 -- 60 TRIG -- -- 103 -- Lab Results Component Value Date ZINC 84.4 12/14/2022 Assessment: Malnutrition -pt meets ASPEN criteria for severe malnutrition: decreased po intake, significant weight loss -TPN initiated yesterday 06/06 at 20 kcals/kg IBW, mild refeeding -taking some clear liquids and tolerating today Electrolytes -hypokalemia, in spite of bolus and significant amount in tpn, potassium dropped further, bolus andincrease today -phos dropped to <3.5, increase in tpn -hypocalcemia, in setting of acute pancreatitis, increase as able per solubility in tpn -serum pH 7.48, minimal acetate in TPN, increase NaCL sl -hypomagnesemia, improving, keep 24 meq/3 gms in bag today to push mag up into high nl range while potassium low LRYGB Pancreatitis -BMI 65 prior to surgery-->s/p uncomplicated elective laparoscopic sandra-en-Y procedure 05/10/23 -presented to [facility] 05/19/23 with abdominal pain, concern for small area of hemoperitoneum on CTAP, hgb stable, discharged home 05/21/23 -returned to ER 06/03/23 with n/v x 2 days, lipase 3563, CTAP unremarkable -->lipase trending down again today Paroxysmal atrial fibrillation -initial dx 11/2022, follows with cardiology, no OAC -episode with RVR yesterday, pt's metoprolol had been on hold, converted back to NSR, picc placed with tip in RA which I would not expect to cause arrhythmia be line was pulled back 4 cm so should not be an issue Hepatic steatosis -noted on CTAP 05/19/23, again on US today 06/08/23 Transaminitis -values normal 05/19/23, trended up this admission, both seemed to have peaked yesterday 06/06 and starting to trend down today Hyperbilirubinemia -normal 05/19/23, up to 2 this admission, trending down, 1.6 today 06/07, ok to keep trace elements in tpn MOE -CPAP HTN Mixed hyperlipidemia PTSD Arthralgias Anemia PLAN SUMMARY, and as above: -KCL bolus this a.m., potassium increased in TPN -no increase in non-protein macronutrients until potassium and phos both > 3.5 -calcium in TPN increased per solubility with phos -repeat zinc level drawn/pending -all sugars good range, well within goal of <180 while TPN infusing, ok to dc POCT glucose checks -TPN volume 1680 cc, which infuses at 70 cc/hr TPN macronutrient calculations: Ht: 5' 5 Actual BW: 372 lbs/ 169 kgs IBW: 125 lbs/ 56.8 kgs Start TOTAL Kcal = 1136 @ 20 Kcal/kg of IBW Goal TOTAL Kcal = 1420 @ 25 Kcal/kg of IBW Protein: 90 grams @ 1.6 grams/kg of IBW for 360 kcal Carbs: Start- 450 Kcal Lipid: Start- 330 Kcal Goal- 640 Kcal Goal- 420 Kcal I spent minimum 50 minutes caring for this patient today: examining the patient, obtaining history,reviewing and personally electrolytes/TPN labs, reviewing new consult/progress notes, ordering medications/tests as indicated and documenting in the record. Discussed with * Fox Saleem MD - 06/07/2023 4:11 PM EDT Brief event note. Called to bedside at ~ 4:11 PM for tachycardia in the setting of a-fib. Patient with known history of A-fib on rate control. Patient did not receive prior doses of scheduled IV metoprolol due to holdparameters for HR <60. Currently patient is in A-fib and reports palpitations. She reportedly stood up to go to restroom and has tachycardia to HR >200. She is now resting comfortably in bed with HR 100 - 130s in A-fib. She has received a total of 2.5mg IV metoprolol prior to this assessment.Currently hemodynamically stable with SBP 140s. Received Mg+ replacement earlier today. Currently receiving K+ replacement set to end at ~6pm. Plan for additional 5mg metop now, continue telemetry Repeat BMP + electrolytes at 6pm following potassium repletion. Will update bariatrics fellow Fox Saleem MD General Surgery, PGY-5 06/07/2023 4:14 PM * Jeannine Worthy MD - 06/07/2023 6:46 AM EDT Images from the original note were not included. Department of Surgery Progress Note PATIENT NAME: Anne Marie Peterson : 1995 ATTENDING PHYSICIAN: Seth Leal DO ADMIT DATE: 06/03/2023 TODAY'S DATE: 06/07/2023 SUBJECTIVE Patient was not able to tolerate any liquids yesterday due to nausea. She is feeling a little better this morning and has been able to tolerate sips of water. Endorsing abdominal pain only while vomiting. OBJECTIVE VITALS: Patient Vitals for the past 24 hrs: BP Temp Temp src Pulse Resp SpO2 06/07/23 0507 121/72 (!) 35.9 C (96.6 F) Temporal 53 16 98 % 06/07/23 0132 146/91 36.3 C (97.3 F) Temporal 50 16 97 % 06/06/232028 129/67 36.1 C (96.9 F) Temporal 50 20 100 % 06/06/23 1651 150/90 36.3 C (97.3 F) Temporal 60 18 100 % 06/06/23 1157 131/75 (!) 23.9 C (75.1 F) Temporal 58 -- -- 06/06/23 0752 129/80 36.1 C (97 F) Temporal 52 16 99 % PHYSICAL EXAM: Constitutional: NAD, Resting in bed Cardiac: regular rate Chest: Resp effort easy and unlabored Abdomen: soft, incisions well healed EXT: extremities normal, atraumatic, no cyanosis or edema INTAKE/OUTPUT: No intake/output data recorded. No intake/output data recorded. Data CBC: Recent Labs 06/05/23 0049 06/06/23 0026 06/07/23222 WBC 7.2 6.5 6.6 HGB 10.7* 11.2* 10.8* HCT 35.4 36.7 35.8 PLT 423 430 398 BMP: Recent Labs 06/05/23 0049 06/06/23 0325 06/07/23222 NA 141 139 141 K 3.0* 3.2* 3.3* CL 106 107 107 CO2 22 21* 23 BUN <2* 2* 3* CREATININE 0.51* 0.52 0.53 GLUCOSE 89 83 86 HEPATIC: Recent Labs 06/05/23 0049 06/06/23 0325 06/07/23 0223 ALKPHOS 59 53 63 ALT 166* 187* 237* AST 131* 134* 157* PROT 7.3 6.2* 7.0 BILITOT 2.0* 1.7* 1.7* Current Inpatient Medications Current Facility-Administered Medications: acetaminophen (Ofirmev) IVPB 1,000 mg, 1,000 mg, IntraVENous, q8h, Christy Lopez MD, Stopped at 06/07/23 0231 lactated Ringer's (LR) infusion, 125 mL/hr, IntraVENous, Continuous, Christy Lopez MD, Last Rate: 125 mL/hr at 06/06/23 0459, 125 mL/hr at 06/06/23 045 lactated ringers bolus 500 mL, 500 mL, IntraVENous, Once, Weston Pagan MD, Last Rate: 250 mL/hrat 06/04/231820, Restarted at 06/04/231820 magnesium sulfate IVPB premix 2,000 mg, 2,000 mg, IntraVENous, Once, Jeannine Worthy MD metoprolol tartrate (Lopressor) injection 2.5 mg, 2.5 mg, IntraVENous, q8h, Amber Espinoza MD, 2.5 mg at 06/06/23 1650 naloxone (Narcan) injection 0.4 mg, 0.4 mg, IntraVENous, q5 min PRN, Memo Campbell MD ondansetron (Zofran) injection 4 mg, 4 mg, IntraVENous, q6h PRN, Christy Lopez MD, 4 mg at 06/07/23 0212 pantoprazole (ProtoNix) 40 mg in sodium chloride (PF) 0.9 % 10 mL injection, 40 mg, IntraVENous, BID, Christy Lopez MD, 40 mg at 06/07/23 0540 potassium chloride 40 mEq in NS 500 mL IVPB (premix), 40 mEq, IntraVENous, Once, Jeannine Worthy MD promethazine (Phenergan) tablet 25 mg, 25 mg, Oral, q6h PRN OR promethazine (Phenergan) suppository 25 mg, 25 mg, Rectal, q12h PRN OR promethazine (Phenergan) injection 25 mg, 25 mg, IntraMUSCular, q4h PRN, Amber Espinoza MD, 25 mg at 06/06/23 0523 scopolamine (Transderm-Scop) patch 1 patch, 1 patch, TransDERmal, q72h, Weston Pagan MD, 1 patch at 06/04/23 191 sodium chloride 0.9 % 1,000 mL with multiple vitamin 10 mL, thiamine 100 mg, folic acid 1 mg infusion, 250 mL/hr, IntraVENous, Once, Christy Lopez MD ASSESSMENT & PLAN Anne Marie Peterson is a 27 y.o. female s/p recent LRYGB with concern for pancreatitis. Upper GI and MRI unremarkable. - continue clear liquid diet - scop patch and phenergan for nausea - pain control prn - SCDs, ambulation - encourage IS use Jeannine Worthy MD Bariatric Surgery Fellow Associated attestation - Memo Campbell MD - 06/07/2023 5:11 PM EDT Images from the original note were not included. [facility] - Surgery [facility] Physicians Surgery Patient Name: Anne Marie Peterson Date: 06/07/23 Doing okay, lipase still elevated. Still with nausea and hypokalemia. PICC line/TPN today for nutrition. at bedside. BP 143/87 (BP Location: Right arm, Patient Position: Lying) Pulse 82 Temp 36.3 C (97.3 F) (Temporal) Resp 24 Ht 5' 5.25 (1.657 m) Wt (!) 372 lb (169 kg) SpO2 99% BMI 61.43 kg/m CBC: Recent Labs 06/05/23 0049 06/06/23 0026 06/07/23 0223 WBC 7.2 6.5 6.6 HGB 10.7* 11.2* 10.8* HCT 35.4 36.7 35.8 PLT 423 430 398 BMP: Recent Labs 06/05/23 0049 06/06/2332406/07/23222 NA 141 139 141 K 3.0* 3.2* 3.3* CL 106 107 107 CO2 22 21* 23 BUN <2* 2* 3* CREATININE 0.51* 0.52 0.53 GLUCOSE 89 83 86 Hepatic: Recent Labs 06/05/23 0049 06/06/2332406/07/23222 ALKPHOS 59 53 63 ALT 166* 187* 237* AST 131* 134* 157* PROT 7.3 6.2* 7.0 BILITOT 2.0* 1.7* 1.7* Abdomen: Soft, nontender, nondistended. Plan: Pancreatitis, monitor lipase TPN/nutrition, okay for clears Antiemetics VTE prophylaxis Increase activity I personally supervised my Resident/Surgical Fellow in the evaluation and management of Anne Marie Peterson in the development of a treatment plan for this patient. I personally interviewed the patient and performed an individual physical examination. In addition, I discussed the patient's condition and treatment options with them. I have also reviewed and agree with the past medical, family and social history and care plan unless otherwise noted. All of the patient's questions were answered. * RT Dru (Ruth)(MR) - 06/06/2023 10:12 AM EDT Needs screened for MRI please * Seth Leal DO - 06/06/2023 8:07 AM EDT Images from the original note were not included. Department of Surgery Progress Note PATIENT NAME: Anne Marie Peterson : 1995 ATTENDING PHYSICIAN: Seth Leal DO ADMIT DATE: 06/03/2023 TODAY'S DATE: 06/06/2023 SUBJECTIVE Still N/V despite aggressive antinausea meds. Abdominal pain stable. Having bowel function. Not tolerating CLD OBJECTIVE VITALS: Patient Vitals for the past 24 hrs: BP Temp Temp src Pulse Resp SpO2 06/06/23 0752 129/80 36.1 C (97 F) Temporal 52 16 99 % 06/06/23 0515 128/68 (!) 35.8 C (96.5 F) Temporal 56 16 98 % 06/06/23 0016 129/76 (!) 35.9 C (96.7 F) Temporal 55 17 99 % 06/05/23 2114 124/71 36.3 C (97.4 F) Temporal 58 15 96 % 06/05/23 2007 114/69 36.1 C (97 F) Temporal 64 -- 97 % 06/05/23 1719 123/68 36.2 C (97.1 F) Temporal 50 20 97 % 06/05/23 1308 115/64 36.3 C (97.4 F) Temporal 56 16 99 % PHYSICAL EXAM: Constitutional: NAD, Resting in bed Cardiac: regular rate Chest: Resp effort easy and unlabored Abdomen: soft, incisions well healed EXT: extremities normal, atraumatic, no cyanosis or edema INTAKE/OUTPUT: No intake/output data recorded. No intake/output data recorded. Data CBC: Recent Labs 06/04/2322406/05/239 06/06/23 0026 WBC 8.1 7.2 6.5 HGB 10.3* 10.7* 11.2* HCT 34.2* 35.4 36.7 PLT 414 423 430 BMP: Recent Labs 06/04/2322406/05/23 0049 06/06/23 0325 NA 138 141 139 K 3.2* 3.0* 3.2* CL 106 106 107 CO2 18* 22 21* BUN <2* <2* 2* CREATININE 0.55 0.51* 0.52 GLUCOSE 99 89 83 HEPATIC: Recent Labs 06/04/2322406/05/23 0049 06/06/23 0325 ALKPHOS 55 59 53 ALT 127* 166* 187* AST 111* 131* 134* PROT 7.3 7.3 6.2* BILITOT 1.8* 2.0* 1.7* BILIDIR 0.0 -- -- Current Inpatient Medications Current Facility-Administered Medications: acetaminophen (Ofirmev) IVPB 1,000 mg, 1,000 mg, IntraVENous, q8h, Christy Lopez MD, Stopped at 06/06/23 0034 lactated Ringer's (LR) infusion, 125 mL/hr, IntraVENous, Continuous, Christy Lopez MD, Last Rate: 125 mL/hr at 06/06/23 0459, 125 mL/hr at 06/06/23 0459 lactated ringers bolus 500 mL, 500 mL, IntraVENous, Once, Weston Pagan MD, Last Rate: 250 mL/hrat 06/04/231820, Restarted at 06/04/231820 lactated ringers bolus 500 mL, 500 mL, IntraVENous, Once, Weston Pagan MD metoprolol tartrate (Lopressor) injection 2.5 mg, 2.5 mg, IntraVENous, q8h, Amber Espinoza MD, 2.5 mg at 06/05/23 1634 naloxone (Narcan) injection 0.4 mg, 0.4 mg, IntraVENous, q5 min PRN, Memo Campbell MD ondansetron (Zofran) injection 4 mg, 4 mg, IntraVENous, q6h PRN, Christy Lopez MD, 4 mg at 06/06/23 0312 pantoprazole (ProtoNix) 40 mg in sodium chloride (PF) 0.9 % 10 mL injection, 40 mg, IntraVENous, BID, Christy Lopez MD, 40 mg at 06/06/23 0523 potassium chloride 40 mEq in NS 500 mL IVPB (premix), 40 mEq, IntraVENous, Once, Weston Pagan MD promethazine (Phenergan) tablet 25 mg, 25 mg, Oral, q6h PRN OR promethazine (Phenergan) suppository 25 mg, 25 mg, Rectal, q12h PRN OR promethazine (Phenergan) injection 25 mg, 25 mg, IntraMUSCular, q4h PRN, Amber Espinoza MD, 25 mg at 06/06/23 0523 scopolamine (Transderm-Scop) patch 1 patch, 1 patch, TransDERmal, q72h, Weston Pagan MD, 1 patch at 06/04/23 191 sodium chloride 0.9 % 1,000 mL with multiple vitamin 10 mL, thiamine 100 mg, folic acid 1 mg infusion, 250 mL/hr, IntraVENous, Once, Christy Lopez MD ASSESSMENT & PLAN Anne Marie Peterson is a 27 y.o. female s/p recent LRYGB with concern for pancreatitis. - continue CLD due to minimal intake and nausea - obtain MRCP in setting of worsening LFTs unknown cause of pancreatitis - upper GI - no acute issues, some narrowing of GJ - AST, ALT remain elevated, Lipase - pain and nausea control prn - SCDs, ambulation - encourage IS use WESTON PAGAN MD General Surgery Resident 06/06/23 8:07 AM This note may have been dictated using Emergency CallWorks Practice Edition 2.6 and/or Personalis Voice Recognition Feature. The document was proofread; however, unrecognized voice recognition sheet metal roofer errors may be present. ATTESTATION The patient was seen and examined. I have reviewed the patients presentation, histories, imaging and serology studies. I agree with the above assessment and plan. Ab: Soft, diffusely tender but minimally to palpation, no rebound or guarding. Patient continues to have abdominal pain. LFTs and lipase remain elevated. Patient has Acute pancreatitis unrelated to recent surgery . Given the laboratory and physical exam findings, I recommend obtaining an MRCP for further assessment of the patient's biliary anatomy. Continue IV fluid resuscitation. Clear liquids okay. We will follow. I (Seth Leal) personally supervised the resident/fellow in the evaluation and development of a treatment plan for this patient including using nursing/ems notes. I personally discussed the reviewof systems and interviewed the patient along with performing a physical examination. In addition, Idiscussed the patient's condition and treatment options with them. I have also reviewed and agree with the past medical, family and social history unless otherwise noted and personally reviewed the imaging and labs. This note may be a delayed entry. All of the patient's questions were answered. The patient was seen and examined independently and relevant data reviewed by myself. A full chart review was performed. * Lucrecia Feliciano - 06/05/2023 1:06 PM EDT Nutrition rescreen completed. Patient is NPO/Clear liquid >3 days. Refer to Dietitian. * Seth Leal DO - 06/05/2023 7:59 AM EDT Images from the original note were not included. Department of Surgery Progress Note PATIENT NAME: Anne Marie Peterson : 1995 ATTENDING PHYSICIAN: Seth Leal DO ADMIT DATE: 06/03/2023 TODAY'S DATE: 06/05/2023 SUBJECTIVE Patient states she feels the same as yesterday. Has some epigastric abdominal pain and nausea. Has been up out of bed. OBJECTIVE VITALS: Patient Vitals for the past 24 hrs: BP Temp Temp src Pulse Resp SpO2 06/05/23 0751 115/70 (!) 35.8 C (96.5 F) Temporal 72 16 98 % 06/05/23 0429 104/54 (!) 35.9 C (96.7 F) Temporal 59 16 97 % 06/05/23 0036 124/69 36.8 C (98.3 F) Temporal 63 18 96 % 06/04/232008 110/58 (!) 35.7 C (96.3 F) Temporal 64 17 96 % 06/04/23 1717 109/76 -- -- 67 17 96 % 06/04/23 1619 111/79 -- -- 69 -- -- 06/04/23 1233 98/51 36.8 C (98.2 F) Temporal 64 17 96 % PHYSICAL EXAM: Constitutional: NAD, Resting in bed Cardiac: regular rate Chest: Resp effort easy and unlabored Abdomen: soft, incisions well healed EXT: extremities normal, atraumatic, no cyanosis or edema INTAKE/OUTPUT: No intake/output data recorded. No intake/output data recorded. Data CBC: Recent Labs 06/03/23194706/04/2322406/05/2348 WBC 8.1 8.1 7.2 HGB 11.8 10.3* 10.7* HCT 39.4 34.2* 35.4 PLT 522* 414 423 BMP: Recent Labs 06/03/23194706/04/2322406/05/2348 NA 139 138 141 K 3.4* 3.2* 3.0* CL 104 106 106 CO2 19* 18* 22 BUN <2* <2* <2* CREATININE 0.57 0.55 0.51* GLUCOSE 103* 99 89 HEPATIC: Recent Labs 06/03/23194706/04/2322406/05/2348 ALKPHOS 65 55 59 ALT 135* 127* 166* AST 106* 111* 131* PROT 8.3* 7.3 7.3 BILITOT 2.0* 1.8* 2.0* BILIDIR -- 0.0 -- Current Inpatient Medications Current Facility-Administered Medications: acetaminophen (Ofirmev) IVPB 1,000 mg, 1,000 mg, IntraVENous, q8h, Christy Lopez MD, Stopped at 06/05/23 005 lactated Ringer's (LR) infusion, 125 mL/hr, IntraVENous, Continuous, Christy Lopez MD, Last Rate: 125 mL/hr at 06/05/23 0604, 125 mL/hr at 06/05/23 06 lactated ringers bolus 500 mL, 500 mL, IntraVENous, Once, Weston Pagan MD, Last Rate: 250 mL/hrat 06/04/231820, Restarted at 06/04/231820 metoprolol tartrate (Lopressor) injection 5 mg, 5 mg, IntraVENous, q8h, Christy Lopez MD, 5 mgat 06/05/23 003 naloxone (Narcan) injection 0.4 mg, 0.4 mg, IntraVENous, q5 min PRN, Memo Campbell MD ondansetron (Zofran) injection 4 mg, 4 mg, IntraVENous, q6h PRN, Christy Lopez MD, 4 mg at 06/05/23 0749 pantoprazole (ProtoNix) 40 mg in sodium chloride (PF) 0.9 % 10 mL injection, 40 mg, IntraVENous, BID, Christy Lopez MD, 40 mg at 06/05/23 0604 potassium chloride 40 mEq in NS 500 mL IVPB (premix), 40 mEq, IntraVENous, Once, Weston Pagan MD, Last Rate: 125 mL/hr at 06/05/23 0605, 40 mEq at 06/05/23 0605 scopolamine (Transderm-Scop) patch 1 patch, 1 patch, TransDERmal, q72h, Weston Pagan MD, 1 patch at 06/04/23 1915 sodium chloride 0.9 % 1,000 mL with multiple vitamin 10 mL, thiamine 100 mg, folic acid 1 mg infusion, 250 mL/hr, IntraVENous, Once, Christy Lopez MD ASSESSMENT & PLAN Anne Marie Peterson is a 27 y.o. female s/p recent LRYGB with concern for pancreatitis. - continue CLD due to minimal intake and nausea - upper GI - no acute issues, some narrowing of GJ - pain and nausea control prn - SCDs, ambulation - encourage IS use WESTON PAGAN MD General Surgery Resident 06/05/23 8:01 AM This note may have been dictated using i[employer] Medical Practice Edition 2.6 and/or Personalis Voice Recognition Feature. The document was proofread; however, unrecognized voice recognition sheet metal roofer errors may be present. ATTESTATION The patient was seen and examined. I have reviewed the patients presentation, histories, imaging and serology studies. I agree with the above assessment and plan. Ab: appropriately tender to palpation over surgical sites. Incision/dressing is clean, dry, and intact. Patient resting in bed, pain is well-controlled. Patient still feels fatigued. She denies nausea orvomiting. Continue nonoperative therapy for pancreatitis and resuscitation. We will follow. I (Seth Leal) personally supervised the resident/fellow in the evaluation and development of a treatment plan for this patient including using nursing/ems notes. I personally discussed the reviewof systems and interviewed the patient along with performing a physical examination. In addition, Idiscussed the patient's condition and treatment options with them. I have also reviewed and agree with the past medical, family and social history unless otherwise noted and personally reviewed the imaging and labs. This note may be a delayed entry. All of the patient's questions were answered. The patient was seen and examined independently and relevant data reviewed by myself. A full chart review was performed. * Jeannine Worthy MD - 06/04/2023 10:31 AM EDT Images from the original note were not included. Department of Surgery Progress Note PATIENT NAME: Anne Marie Peterson : 1995 ATTENDING PHYSICIAN: Seth Leal DO ADMIT DATE: 06/03/2023 TODAY'S DATE: 06/04/2023 SUBJECTIVE Patient states she feels a bit better this morning compared to when she came to the ED. Denies abdominal pain, nausea, or vomiting. OBJECTIVE VITALS: Patient Vitals for the past 24 hrs: BP Temp Temp src Pulse Resp SpO2 06/04/23 0745 121/64 36.8 C (98.3 F) Temporal 68 18 93 % 06/04/23 0258 108/57 36.8 C (98.2 F) Temporal 76 16 97 % 06/04/23 0040 127/84 36.2 C (97.1 F) Temporal 74 18 96 % 06/03/23 2202 134/89 36.1 C (97 F) Temporal 90 16 96 % 06/03/23 1918 (!) 135/91 (!) 35.7 C (96.3 F) Temporal 75 19 96 % PHYSICAL EXAM: Constitutional: NAD, Resting in bed Cardiac: regular rate Chest: Resp effort easy and unlabored Abdomen: soft, incisions well healed EXT: extremities normal, atraumatic, no cyanosis or edema INTAKE/OUTPUT: No intake/output data recorded. No intake/output data recorded. Data CBC: Recent Labs 06/03/23194706/04/23224 WBC 8.1 8.1 HGB 11.8 10.3* HCT 39.4 34.2* PLT 522* 414 BMP: Recent Labs 06/03/23194706/04/23224 NA 139 138 K 3.4* 3.2* CL 104 106 CO2 19* 18* BUN <2* <2* CREATININE 0.57 0.55 GLUCOSE 103* 99 HEPATIC: Recent Labs 06/03/23194706/04/23224 ALKPHOS 65 55 ALT 135* 127* AST 106* 111* PROT 8.3* 7.3 BILITOT 2.0* 1.8* BILIDIR -- 0.0 Current Inpatient Medications Current Facility-Administered Medications: acetaminophen (Ofirmev) IVPB 1,000 mg, 1,000 mg, IntraVENous, q8h, Christy Lopez MD, Last Rate: 400 mL/hr at 06/04/23814, 1,000 mg at 06/04/23814 HYDROmorphone (Dilaudid) injection 0.5 mg, 0.5 mg, IntraVENous, q3h PRN, Christy Lopez MD lactated Ringer's (LR) infusion, 125 mL/hr, IntraVENous, Continuous, Christy Lopez MD, Last Rate: 125 mL/hr at 06/04/23116, 125 mL/hr at 06/04/23116 metoprolol tartrate (Lopressor) injection 5 mg, 5 mg, IntraVENous, q8h, Christy Lopez MD, 5 mgat 06/04/23814 naloxone (Narcan) injection 0.4 mg, 0.4 mg, IntraVENous, q5 min PRN, Memo Campbell MD ondansetron (Zofran) injection 4 mg, 4 mg, IntraVENous, q6h PRN, Christy Lopez MD, 4 mg at 06/04/23814 pantoprazole (ProtoNix) 40 mg in sodium chloride (PF) 0.9 % 10 mL injection, 40 mg, IntraVENous, BID, Christy Lopez MD, 40 mg at 06/04/23 0539 sodium chloride 0.9 % 1,000 mL with multiple vitamin 10 mL, thiamine 100 mg, folic acid 1 mg infusion, 250 mL/hr, IntraVENous, Once, Christy Lopez MD ASSESSMENT & PLAN Anne Marie Peterson is a 27 y.o. female s/p recent LRYGB with concern for pancreatitis. - NPO, IVF - upper GI this AM - pain and nausea control prn - SCDs, ambulation - encourage IS use Jeannine Worthy MD Bariatric Surgery Fellow Associated attestation - Memo Campbell MD - 06/04/2023 7:05 PM EDT Images from the original note were not included. [facility] - Surgery [facility] Physicians Surgery Patient Name: Anne Marie Peterson Date: 06/04/23 Doing okay, mother at bedside. CT reviewed, pancreas looks normal however chemically, elevated lipase and labs consistent with pancreatitis. History of cholecystectomy in the past. No evidence of biliary dilation. BP 109/76 (BP Location: Left arm, Patient Position: Sitting) Pulse 67 Temp 36.8 C (98.2 F) (Temporal) Resp 17 SpO2 96% CBC: Recent Labs 06/03/23194706/04/23224 WBC 8.1 8.1 HGB 11.8 10.3* HCT 39.4 34.2* PLT 522* 414 BMP: Recent Labs 06/03/23194706/04/23224 NA 139 138 K 3.4* 3.2* CL 104 106 CO2 19* 18* BUN <2* <2* CREATININE 0.57 0.55 GLUCOSE 103* 99 Hepatic: Recent Labs 06/03/23194706/04/23224 ALKPHOS 65 55 ALT 135* 127* AST 106* 111* PROT 8.3* 7.3 BILITOT 2.0* 1.8* BILIDIR -- 0.0 Abdomen: Soft, approp. tender, nondistended. Plan: Pancreatitis, postop after gastric bypass Continue IV fluid support, clear liquid diet Monitor labs Pain management VTE prophylaxis I personally supervised my Resident/Surgical Fellow in the evaluation and management of Anne Marie Peterson in the development of a treatment plan for this patient. I personally interviewed the patient and performed an individual physical examination. In addition, I discussed the patient's condition and treatment options with them. I have also reviewed and agree with the past medical, family and social history and care plan unless otherwise noted. All of the patient's questions were answered. documented in this [facility]04-18-2024 Note* Care Coordination - Adrián Abreu RN - 06/10/2023 9:12 AM EDT Images from the original note were not included. Care Management Progress Note Remains on H6, s/p recent LRYGB with concern for pancreatitis. Also with Afib with RVR, changed to PO metoprolol. Has PICC line for TPN. Diet advanced to regular, plan to discontinue TPN. Potassium is 3.2 today. Discharge plan is home independently when medically ready, no discharge planning needs noted. TCC will continue to follow. Discharge Milestones and Delays Expected Date/Time: 06/11/[address] discharge order Complete med reconciliation Case mgmt discharge readiness Clinical Stability Diagnsotic Workup Expected Discharge History Expected Date/Time Set By Reviewed At 06/11/2023 Adrián Abreu RN 06/10/2023 8:09 AM 06/11/2023 Adrián Abreu RN 06/09/2023 8:45 AM 06/11/2023 Adrián Abreu RN 06/08/2023 8:49 AM 06/09/2023 Adrián Abreu RN 06/07/2023 8:23 AM 06/06/2023 Seth Leal DO 06/06/2023 5:29 PM 06/05/2023 Adrián Abreu RN 06/04/2023 8:20 AM 06/05/2023 Christy Lopez MD 06/04/2023 12:42 AM 06/05/2023 Christy Lopez MD 06/03/2023 11:53 PM 06/05/2023 Christy Lopez MD 06/03/2023 11:48 PM 06/05/2023 Christy Lopez MD 06/03/2023 11:09 PM Length of Stay (Days): 4 GMLOS: No GMLOS [facility]ed [id number]* Care Coordination - Adrián Abreu RN - 06/10/2023 9:12 AM EDT Images from the original note were not included. Care Management Progress Note Remains on H6, s/p recent LRYGB with concern for pancreatitis. Also with Afib with RVR, changed to PO metoprolol. Has PICC line for TPN. Diet advanced to regular, plan to discontinue TPN. Potassium is 3.2 today. Discharge plan is home independently when medically ready, no discharge planning needs noted. TCC will continue to follow. Discharge Milestones and Delays Expected Date/Time: 06/11/[address] discharge order Complete med reconciliation Case mgmt discharge readiness Clinical Stability Diagnsotic Workup Expected Discharge History Expected Date/Time Set By Reviewed At 06/11/2023 Adrián Abreu RN 06/10/2023 8:09 AM 06/11/2023 Adrián Abreu RN 06/09/2023 8:45 AM 06/11/2023 Adrián Abreu RN 06/08/2023 8:49 AM 06/09/2023 Adrián Abrue RN 06/07/2023 8:23 AM 06/06/2023 Seth Leal DO 06/06/2023 5:29 PM 06/05/2023 Adrián Abreu RN 06/04/2023 8:20 AM 06/05/2023 Christy Lopez MD 06/04/2023 12:42 AM 06/05/2023 Christy Lopez MD 06/03/2023 11:53 PM 06/05/2023 Christy Lopez MD 06/03/2023 11:48 PM 06/05/2023 Christy Lopez MD 06/03/2023 11:09 PM Length of Stay (Days): 4 GMLOS: No GMLOS Documented [id number] Hospital course Narrative* Jeannine Worthy MD - 06/09/2023 2:47 PM EDT Discharge Summary Anne Marie Peterson : 1995 ADMIT DATE: 06/03/2023 DISCHARGE DATE: 06/11/2023 PRIMARY CARE PHYSICIAN: Xenia Lane VISIT STATUS: Admission CODE STATUS: Full Code DISCHARGE DIAGNOSES: Principal Problem: Painless pancreatitis Active Problems: Prediabetes Atrial fibrillation with RVR (HCC) Mixed hyperlipidemia MOE on CPAP Morbid obesity with BMI of 60.0-69.9, adult (HCC) Acute pancreatitis, unspecified complication status, unspecified pancreatitis type Severe malnutrition (CMS/HCC) (HCC) Hypokalemia History of gastric bypass HOSPITAL COURSE: Patient presented with pancreatitis. Her lipase downtrended. CT abdomen/pelvis, MRI, and RUQ US didnot show significant pathology. Upper GI normal. She was started on TPN for nutrition and soon transitioned to CLD and then advanced to regular diet. She was treated with metoprolol for a fib with RVR. SIGNIFICANT DIAGNOSTIC STUDIES: CT abdomen/pelvis, upper GI, MRI, RUQ US CONSULTANTS: Cardiology RECOMMENDED NEXT STEPS: Follow up with Dr. Campbell in 2 weeks. DISCHARGE MEDICATIONS: Medication List CONTINUE taking these medications calcium carbonate 500 MG chewable tablet Commonly known as: Tums CareTouch 2 CPAP Hose Dominatrix misc ferrous sulfate 325 (65 Fe) MG tablet Take 1 tablet (325 mg) by mouth 2 times daily. FLINTSTONES PLUS IRON PO magnesium 30 MG tablet metoprolol succinate XL 25 MG 24 hr tablet Commonly known as: Toprol-XL Take 1 tablet (25 mg) by mouth daily. omeprazole [address] capsule Commonly known as: PriLOSEC Take 1 capsule (20 mg) by mouth daily. Do not crush or chew. Vitamin B-12 500 MCG sublingual tablet VITAMIN D (CHOLECALCIFEROL) PO STOP taking these medications nystatin 510050 UNIT/ML suspension Commonly known as: Mycostatin DIET: Adult diet Regular ACTIVITY: No restriction. COMPLEXITY OF FOLLOW UP: [x] Moderate Complexity: follow up within 7-14 calendar days (37903) [] Severe Complexity: follow up within 7 calendar days (86580) FOLLOW UP TESTING, PENDING RESULTS OR REFERRALS AT TRANSITIONAL CARE VISIT: [] Yes [x] No PENDING STUDIES: None DISPOSITION: Home Follow up with Memo Campbell MD [address] [place] [address] Schedule an appointment as soon as possible for a visit in 2 week(s) INSTRUCTIONS TO MA/SW: Please call patient on day after discharge (must document patient contacted within 2 business days of discharge). FOLLOW UP QUESTIONS FOR MA/SW: 1. Did you get medications filled and taking them as instructed from discharge? 2. Are you following your discharge instructions from your hospital stay? 3. Please confirm patient is scheduled for a follow up appointment within the above time frame. DISCHARGE TIME: > 30 minutes SIGNED: Jeannine Worthy MD 06/11/2023, 7:10 AM documented in this [facility]04-17-2024 Note* Care Coordination - Adrián Abreu RN - 06/09/2023 11:34 AM EDT Images from the original note were not included. Care Management Progress Note Remains on H6, s/p recent LRYGB with concern for pancreatitis. Also with Afib with RVR. Has PICC line for TPN. Receiving potassium supplements. IV metoprolol PRN. full liquid diet. Discharge plan is home independently pending progress. TCC will continue to follow. Discharge Milestones and Delays Expected Date/Time: 06/11/[address] discharge order Complete med reconciliation Case mgmt discharge readiness Clinical Stability Diagnsotic Workup Expected Discharge History Expected Date/Time Set By Reviewed At 06/11/2023 Adrián Abreu RN 06/09/2023 8:45 AM 06/11/2023 Adrián Abreu RN 06/08/2023 8:49 AM 06/09/2023 Adrián Abreu RN 06/07/2023 8:23 AM 06/06/2023 Seth Leal DO 06/06/2023 5:29 PM 06/05/2023 Adrián Abreu RN 06/04/2023 8:20 AM 06/05/2023 Christy Lopez MD 06/04/2023 12:42 AM 06/05/2023 Christy Lopez MD 06/03/2023 11:53 PM 06/05/2023 Christy Lopez MD 06/03/2023 11:48 PM 06/05/2023 Christy Lopez MD 06/03/2023 11:09 PM Length of Stay (Days): 3 GMLOS: No GMLOS Documented [id number] Note* Care Coordination - Adrián Abreu RN - 06/09/2023 11:34 AM EDT Images from the original note were not included. Care Management Progress Note Remains on H6, s/p recent LRYGB with concern for pancreatitis. Also with Afib with RVR. Has PICC line for TPN. Receiving potassium supplements. IV metoprolol PRN. full liquid diet. Discharge plan is home independently pending progress. TCC will continue to follow. Discharge Milestones and Delays Expected Date/Time: 06/11/[address] discharge order Complete med reconciliation Case mgmt discharge readiness Clinical Stability Diagnsotic Workup Expected Discharge History Expected Date/Time Set By Reviewed At 06/11/2023 Adrián Abreu RN 06/09/2023 8:45 AM 06/11/2023 Adrián Abreu RN 06/08/2023 8:49 AM 06/09/2023 Adrián Abreu RN 06/07/2023 8:23 AM 06/06/2023 Seth Leal DO 06/06/2023 5:29 PM 06/05/2023 Adrián Abreu RN 06/04/2023 8:20 AM 06/05/2023 Christy Lopez MD 06/04/2023 12:42 AM 06/05/2023 Christy Lopez MD 06/03/2023 11:53 PM 06/05/2023 Christy Lopez MD 06/03/2023 11:48 PM 06/05/2023 Christy Lopez MD 06/03/2023 11:09 PM Length of Stay (Days): 3 GMLOS: No GMLOS Documented [facility] [id number] Note* Care Coordination - Adrián Abreu RN - 06/08/2023 11:40 AM EDT Images from the original note were not included. Care Management Progress Note Remains on H6, s/p recent LRYGB with concern for pancreatitis. Also with Afib with RVR. Has PICC line for TPN. Receiving potassium supplement. IV metoprolol. Clear liquid diet. Plan for ultrasound ofabdomen today. Discharge plan is home independently pending progress. TCC will continue to follow. Discharge Milestones and Delays Expected Date/Time: 06/11/[address] discharge order Complete med reconciliation Case mgmt discharge readiness Clinical Stability Diagnsotic Workup Expected Discharge History Expected Date/Time Set By Reviewed At 06/11/2023 Adrián Abreu RN 06/08/2023 8:49 AM 06/09/2023 Adrián Abreu RN 06/07/2023 8:23 AM 06/06/2023 Seth Leal DO 06/06/2023 5:29 PM 06/05/2023 Adrián Abreu RN 06/04/2023 8:20 AM 06/05/2023 Christy Lopez MD 06/04/2023 12:42 AM 06/05/2023 Christy Lopez MD 06/03/2023 11:53 PM 06/05/2023 Christy Lopez MD 06/03/2023 11:48 PM 06/05/2023 Christy Lopez MD 06/03/2023 11:09 PM Length of Stay (Days): 2 GMLOS: No GMLOS Documented [facility] [id number] Note* Care Coordination - Adrián Abreu RN - 06/08/2023 11:40 AM EDT Images from the original note were not included. Care Management Progress Note Remains on H6, s/p recent LRYGB with concern for pancreatitis. Also with Afib with RVR. Has PICC line for TPN. Receiving potassium supplement. IV metoprolol. Clear liquid diet. Plan for ultrasound ofabdomen today. Discharge plan is home independently pending progress. TCC will continue to follow. Discharge Milestones and Delays Expected Date/Time: 06/11/[address] discharge order Complete med reconciliation Case mgmt discharge readiness Clinical Stability Diagnsotic Workup Expected Discharge History Expected Date/Time Set By Reviewed At 06/11/2023 Adrián Abreu RN 06/08/2023 8:49 AM 06/09/2023 Adrián Abreu RN 06/07/2023 8:23 AM 06/06/2023 Seth Leal DO 06/06/2023 5:29 PM 06/05/2023 Adrián Abreu RN 06/04/2023 8:20 AM 06/05/2023 Christy Lopez MD 06/04/2023 12:42 AM 06/05/2023 Christy Lopez MD 06/03/2023 11:53 PM 06/05/2023 Christy Lopez MD 06/03/2023 11:48 PM 06/05/2023 Christy Lopez MD 06/03/2023 11:09 PM Length of Stay (Days): 2 GMLOS: No GMLOS Documented [facility] [id number] Consult note* Mai Ly MD - 06/08/2023 8:41 AM EDTAssociated Order(s): IP CONSULT TO CARDIOLOGY [facility] [place] [facility] [place]Electrophysiology Consult Note Reason for Consult/Chief Complaint: AF with RVR Referring provider: Dr. Leal Established binder coverstitch: Dr. Ravi Abreu History of Present Illness: Anne Marie Peterson is a 27 y.o. female with hx of AF dx 12/2022, small PFO, prediabtes, HLD sandra en y on 04/2023 presenting for pancreatitis. She reports she was feeling well until a week ago when she started having periumbilical pain associated with nausea and vomiting and has not been able to eat anything since then. She has been gettingIV fluids for her pancreatitis. She had a PICC line inserted yesterday and couple of minutes after that went into A-fib with RVR with symptoms of palpitations at that time was heart rate in the 160s to 170s. Her PICC line was pulled back slightly however her A-fib persisted and self aborted around 4 AM this morning. She did have a brief episode on telemetry of A-fib in the 120s to 130s. Today undergoing US of abdomen. She had CT abdomen and MR of abdomen showed diffuse hepatic steatosis with mild prominent gastrohepatic ligament LN. She is s/p cholecystectomy. Assessment/Plan AF with RVR She has hx of paroxymal AF. [id number] of zero. Currently in NSR in the 70s. At home she is on Toprol 25mg daily. Most likely the episode was due to current illness/pancreatitis and PICC line placement with irritation to the RA. Currently stable. TSH WNL. Echo ion 12/2022 showed normal EF with small PFO. - Recommend lopressor 5mg IV Q6 hours PRN for AF. Also can given Cardizem 20mg IV if HR difficult to control. Once she can tolerate PO intake would recommend starting lopressor 25mg BID. - Keep K>4 and Mag>2 to prevent arrhythmias. - No further workup needed. Will sign off. Call back if needed.Will schedule follow-up. Pancreatitis Management per primary. Added a lipid panel to r/o hypertriglyceridemia. Medications: acetaminophen, 1,000 mg, IntraVENous, q8h enoxaparin, 40 mg, SubCUTAneous, q12h heparin flush, 250 Units, IntraCATHeter, q12h metoprolol, 5 mg, IntraVENous, q6h pantoprazole (ProtoNix) 40 mg in sodium chloride (PF) 0.9 % 10 mL injection, 40 mg, IntraVENous, BID potassium chloride, 40 mEq, IntraVENous, Once scopolamine, 1 patch, TransDERmal, q72h sodium chloride 0.9%, 10 mL, IntraCATHeter, q12h Infusion Medications: Adult TPN Central Line, 1,680 mL, Last Rate: 70 mL/hr at 06/07/23 1814 Adult TPN Central Line, 1,680 mL Physical Examination: Vitals: 06/08/23 0002 06/08/23 0025 06/08/23 0422 06/08/23 0800 BP: 135/78 117/86 114/76 109/69 BP Location: Right arm Right arm Right arm Patient Position: Lying Lying Sitting Pulse: (!) 133 69 76 82 Resp: 18 16 18 17 Temp: 36.1 C (97 F) (!) 35.9 C (96.6 F) 36.2 C (97.2 F) 36.9 C (98.5 F) TempSrc: Temporal Temporal Temporal Temporal SpO2: 97% 97% 96% 96% Weight: Height: Intake/Output Summary (Last 24 hours) at 06/08/2023 0841 Last data filed at 06/08/2023 0613 Gross per 24 hour Intake 290 ml Output 0 ml Net 290 ml Wt Readings from Last 3 Encounters: 06/07/23 (!) 372 lb (169 kg) 05/27/23 (!) 372 lb 6.4 oz (169 kg) 05/19/23 (!) 380 lb (172 kg) Physical Exam Constitutional: General: She is not in acute distress. HENT: Head: Normocephalic and atraumatic. Right Ear: External ear normal. Left Ear: External ear normal. Mouth/Throat: Mouth: Mucous membranes are moist. Eyes: General: No scleral icterus. Conjunctiva/sclera: Conjunctivae normal. Neck: Thyroid: No thyromegaly. Vascular: No JVD. Cardiovascular: Rate and Rhythm: Regular rhythm. Chest Wall: PMI is not displaced. Heart sounds: No murmur heard. No S3 or S4 sounds. Pulmonary: Effort: Pulmonary effort is normal. Breath sounds: Normal breath sounds. No wheezing or rales. Abdominal: General: Bowel sounds are normal. There is no distension. Palpations: Abdomen is soft. Tenderness: There is no abdominal tenderness. Musculoskeletal: General: No swelling. Cervical back: Neck supple. Right lower leg: Edema present. Left lower leg: Edema present. Skin: General: Skin is warm and dry. Findings: No rash. Nails: There is no clubbing. Neurological: General: No focal deficit present. Mental Status: She is alert and oriented to person, place, and time. Gait: Gait is intact. Psychiatric: Mood and Affect: Mood normal. Thought Content: Thought content normal. Laboratory Tests: Recent Labs 06/06/23 0325 06/07/233 06/07/23 1804 06/08/23 0342 NA 139 141 140 137 K 3.2* 3.3* 3.5 3.1* CL 107 107 105 104 CO2 21* 23 25 24 BUN 2* 3* 2* 4* CREATININE 0.52 0.53 0.45* 0.43* EGFR >90.0 >90.0 >90.0 >90.0 No results for input(s): CKTOTAL, CKMB, CKMBINDEX, TROPONINI in the last 72 hours. Recent Labs 06/06/23 0026 06/07/23 0223 06/08/23 0342 WBC 6.5 6.6 7.3 HGB 11.2* 10.8* 10.7* HCT 36.7 35.8 35.9 MCV 72.4* 73.4* 72.8* PLT 430 398 360 Lab Results Component Value Date HGBA1C 6.1 (H) 05/03/2023 Lab Results Component Value Date TSH 4.370 06/07/2023 Lab Results Component Value Date CHOL 184 12/14/2022 Lab Results Component Value Date HDL 30 (L) 12/14/2022 Lab Results Component Value Date LDLCALC 136 (H) 12/14/2022 Lab Results Component Value Date TRIG 103 06/07/2023 TRIG 91 12/14/2022 No results found for: CHOLHDL No results found for: LDLCHOLESTER No results for input(s): BNP in the last 72 hours. No results for input(s): INR in the last 72 hours. Results from last 7 days Lab Units 06/08/23 0342 06/07/23 0223 06/06/23 0325 AST U/L 121* 157* 134* ALT U/L 175* 237* 187* Lab Results Component Value Date IRON 41 05/21/2023 TIBC 303 05/21/2023 FERRITIN 16 02/23/2023 Radiology: CXR: personally reviewed: Cardiac Tests Personally Reviewed: Last EKG 06/03/23 ECG 12-LEAD (Preliminary) This result has not been signed. Information might be incomplete. Impression Atrial fibrillation Ventricular premature complex Borderline T abnormalities, diffuse leads Telemetry findings: NSR this AM Reports reviewed: Last Echo 01/12/23 TRANSTHORACIC ECHOCARDIOGRAM (TTE) COMPLETE (CONTRAST/BUBBLE/3D PRN) 01/12/2023 1:32 PM (Final) Interpretation Summary Left Ventricle: Left ventricle size is normal. LVIDd is 4.7 cm. Mildly increased wall thickness. IVSd is 1.0 cm. LVPWd is 1.2 cm. Normal left ventricular systolic function. EF by 2D Simpsons Biplane is 65%. Normal wall motion. Right Ventricle: Right ventricle size is normal. Normal systolic function. Interatrial Septum: Grade I Positive (1 to 9 bubbles). Agitated saline study was positive without provocation. Right to left shunt was noted. Aorta: Normal sized sinuses of Valsalva and ascending aorta. Pericardium: No pericardial effusion. No significant valvular abnormalities. Signed by: Eliazar Gates DO on 01/12/2023 1:32 PM Last Cath No results found for this or any previous visit. Last Stress Test No results found for this or any previous visit. Last EP study No results found for this or any previous visit. EF BP Date Value Ref Range Status 01/12/2023 65 55 - 100 % Final Mai Ly MD PGY-6 Service Order Taker [facility] [place] 10:42 AM 06/08/23 Associated attestation - Monica Landry MD - 06/08/2023 12:16 PM EDT I, Monica Landry MD, saw and evaluated the patient. I personally obtained the frost and critical portions of the history and physical exam. I reviewed the chart, the fellow's documentation, and discussed the patient with the fellow. I agree with the fellow's medical decision making and have edited the note to reflect my clinical findings and my assessment and plan. [facility] Work Phone: [phone]) 847-240104-16-2024 Consult note* Mai Ly MD - 06/08/2023 8:41 AM EDTAssociated Order(s): IP CONSULT TO CARDIOLOGY [facility] Cardiology /Electrophysiology Consult Note Reason for Consult/Chief Complaint: AF with RVR Referring provider: Dr. Leal Established binder coverstitch: Dr. Ravi Abreu History of Present Illness: Anne Marie Peterson is a 27 y.o. female with hx of AF dx 12/2022, small PFO, prediabtes, HLD sandra en y on 04/2023 presenting for pancreatitis. She reports she was feeling well until a week ago when she started having periumbilical pain associated with nausea and vomiting and has not been able to eat anything since then. She has been gettingIV fluids for her pancreatitis. She had a PICC line inserted yesterday and couple of minutes after that went into A-fib with RVR with symptoms of palpitations at that time was heart rate in the 160s to 170s. Her PICC line was pulled back slightly however her A-fib persisted and self aborted around 4 AM this morning. She did have a brief episode on telemetry of A-fib in the 120s to 130s. Today undergoing US of abdomen. She had CT abdomen and MR of abdomen showed diffuse hepatic steatosis with mild prominent gastrohepatic ligament LN. She is s/p cholecystectomy. Assessment/Plan AF with RVR She has hx of paroxymal AF. [id number] of zero. Currently in NSR in the 70s. At home she is on Toprol 25mg daily. Most likely the episode was due to current illness/pancreatitis and PICC line placement with irritation to the RA. Currently stable. TSH WNL. Echo ion 12/2022 showed normal EF with small PFO. - Recommend lopressor 5mg IV Q6 hours PRN for AF. Also can given Cardizem 20mg IV if HR difficult to control. Once she can tolerate PO intake would recommend starting lopressor 25mg BID. - Keep K>4 and Mag>2 to prevent arrhythmias. - No further workup needed. Will sign off. Call back if needed.Will schedule follow-up. Pancreatitis Management per primary. Added a lipid panel to r/o hypertriglyceridemia. Medications: acetaminophen, 1,000 mg, IntraVENous, q8h enoxaparin, 40 mg, SubCUTAneous, q12h heparin flush, 250 Units, IntraCATHeter, q12h metoprolol, 5 mg, IntraVENous, q6h pantoprazole (ProtoNix) 40 mg in sodium chloride (PF) 0.9 % 10 mL injection, 40 mg, IntraVENous, BID potassium chloride, 40 mEq, IntraVENous, Once scopolamine, 1 patch, TransDERmal, q72h sodium chloride 0.9%, 10 mL, IntraCATHeter, q12h Infusion Medications: Adult TPN Central Line, 1,680 mL, Last Rate: 70 mL/hr at 06/07/23 1814 Adult TPN Central Line, 1,680 mL Physical Examination: Vitals: 06/08/23 0002 06/08/23 0025 06/08/23 0422 06/08/23 0800 BP: 135/78 117/86 114/76 109/69 BP Location: Right arm Right arm Right arm Patient Position: Lying Lying Sitting Pulse: (!) 133 69 76 82 Resp: 18 16 18 17 Temp: 36.1 C (97 F) (!) 35.9 C (96.6 F) 36.2 C (97.2 F) 36.9 C (98.5 F) TempSrc: Temporal Temporal Temporal Temporal SpO2: 97% 97% 96% 96% Weight: Height: Intake/Output Summary (Last 24 hours) at 06/08/2023 0841 Last data filed at 06/08/2023 0613 Gross per 24 hour Intake 290 ml Output 0 ml Net 290 ml Wt Readings from Last 3 Encounters: 06/07/23 (!) 372 lb (169 kg) 05/27/23 (!) 372 lb 6.4 oz (169 kg) 05/19/23 (!) 380 lb (172 kg) Physical Exam Constitutional: General: She is not in acute distress. HENT: Head: Normocephalic and atraumatic. Right Ear: External ear normal. Left Ear: External ear normal. Mouth/Throat: Mouth: Mucous membranes are moist. Eyes: General: No scleral icterus. Conjunctiva/sclera: Conjunctivae normal. Neck: Thyroid: No thyromegaly. Vascular: No JVD. Cardiovascular: Rate and Rhythm: Regular rhythm. Chest Wall: PMI is not displaced. Heart sounds: No murmur heard. No S3 or S4 sounds. Pulmonary: Effort: Pulmonary effort is normal. Breath sounds: Normal breath sounds. No wheezing or rales. Abdominal: General: Bowel sounds are normal. There is no distension. Palpations: Abdomen is soft. Tenderness: There is no abdominal tenderness. Musculoskeletal: General: No swelling. Cervical back: Neck supple. Right lower leg: Edema present. Left lower leg: Edema present. Skin: General: Skin is warm and dry. Findings: No rash. Nails: There is no clubbing. Neurological: General: No focal deficit present. Mental Status: She is alert and oriented to person, place, and time. Gait: Gait is intact. Psychiatric: Mood and Affect: Mood normal. Thought Content: Thought content normal. Laboratory Tests: Recent Labs 06/06/23 0325 06/07/23 0223 06/07/23 1804 06/08/23 0342 NA 139 141 140 137 K 3.2* 3.3* 3.5 3.1* CL 107 107 105 104 CO2 21* 23 25 24 BUN 2* 3* 2* 4* CREATININE 0.52 0.53 0.45* 0.43* EGFR >90.0 >90.0 >90.0 >90.0 No results for input(s): CKTOTAL, CKMB, CKMBINDEX, TROPONINI in the last 72 hours. Recent Labs 06/06/23 0026 06/07/23 0223 06/08/23 0342 WBC 6.5 6.6 7.3 HGB 11.2* 10.8* 10.7* HCT 36.7 35.8 35.9 MCV 72.4* 73.4* 72.8* PLT 430 398 360 Lab Results Component Value Date HGBA1C 6.1 (H) 05/03/2023 Lab Results Component Value Date TSH 4.370 06/07/2023 Lab Results Component Value Date CHOL 184 12/14/2022 Lab Results Component Value Date HDL 30 (L) 12/14/2022 Lab Results Component Value Date LDLCALC 136 (H) 12/14/2022 Lab Results Component Value Date TRIG 103 06/07/2023 TRIG 91 12/14/2022 No results found for: CHOLHDL No results found for: LDLCHOLESTER No results for input(s): BNP in the last 72 hours. No results for input(s): INR in the last 72 hours. Results from last 7 days Lab Units 06/08/23 0342 06/07/23 0223 06/06/23 0325 AST U/L 121* 157* 134* ALT U/L 175* 237* 187* Lab Results Component Value Date IRON 41 05/21/2023 TIBC 303 05/21/2023 FERRITIN 16 02/23/2023 Radiology: CXR: personally reviewed: Cardiac Tests Personally Reviewed: Last EKG 06/03/23 ECG 12-LEAD (Preliminary) This result has not been signed. Information might be incomplete. Impression Atrial fibrillation Ventricular premature complex Borderline T abnormalities, diffuse leads Telemetry findings: NSR this AM Reports reviewed: Last Echo 01/12/23 TRANSTHORACIC ECHOCARDIOGRAM (TTE) COMPLETE (CONTRAST/BUBBLE/3D PRN) 01/12/2023 1:32 PM (Final) Interpretation Summary Left Ventricle: Left ventricle size is normal. LVIDd is 4.7 cm. Mildly increased wall thickness. IVSd is 1.0 cm. LVPWd is 1.2 cm. Normal left ventricular systolic function. EF by 2D Simpsons Biplane is 65%. Normal wall motion. Right Ventricle: Right ventricle size is normal. Normal systolic function. Interatrial Septum: Grade I Positive (1 to 9 bubbles). Agitated saline study was positive without provocation. Right to left shunt was noted. Aorta: Normal sized sinuses of Valsalva and ascending aorta. Pericardium: No pericardial effusion. No significant valvular abnormalities. Signed by: Eliazar Gates DO on 01/12/2023 1:32 PM Last Cath No results found for this or any previous visit. Last Stress Test No results found for this or any previous visit. Last EP study No results found for this or any previous visit. EF BP Date Value Ref Range Status 01/12/2023 65 55 - 100 % Final Mai Ly MD PGY-6 Service Order Taker [facility] [place] 10:42 AM 06/08/23 Associated attestation - Monica Landry MD - 06/08/2023 12:16 PM EDT I, Monica Landry MD, saw and evaluated the patient. I personally obtained the frost and critical portions of the history and physical exam. I reviewed the chart, the fellow's documentation, and discussed the patient with the fellow. I agree with the fellow's medical decision making and have edited the note to reflect my clinical findings and my assessment and plan. * Laisha Villalba RD - 06/07/2023 1:22 PM EDTAssociated Order(s): IP CONSULT TO DIETITIAN Nutrition Assessment Type and Reason for Visit: Initial, Consult Nutrition Recommendations/Plan: Pt meets ASPEN/AND criteria for malnutrition as indicated below CLD as tolerated; Initial TPN rate remains appropriate: 450 dextrose kcals, 360 AA kcals (90 g), 330 lipid kcals; provides 1140 total kcals @ 20 kcals/day, 1.6 g protein/day per IBW <57 kg> Suggest TPN goal 640 dextrose kcals, 360 AA kcals (90 g), 425 lipid kcals; provides 1425 total kcals @ 25 kcals/day, 1.6 g protein/day per IBW <57 kg> Increased risk for refeeding syndrome; Trend labs, BMP, Mg, PO4, closely replete appropriate. Will continue to monitor labs, meds, po intakes and/or alternative nutrition tolerance, skin integrity, wt trends, and overall nutrition status - RD to follow weekly Malnutrition Assessment: Malnutrition Status: Severe malnutrition (has not has substantial or adequate nutrition during recovery s/p LRYGB 05/10/23) Context: Acute Illness Findings of the 6 clinical characteristics of malnutrition: Energy Intake: 50% or less of estimated energy requirements for 5 or more days Weight Loss: 5% over 1 month Body Fat Loss: No significant body fat loss Muscle Mass Loss: No significant muscle mass loss Fluid Accumulation: No significant fluid accumulation Final Touch Up Painter Strength: Not Performed HPI: Anne Marie Peterson is a 27 y.o. female with significant past medical history of a fib, PTSD who presents with nausea and vomiting. Patient reports approximately 2 days of nausea vomiting. Did have thin, light red emesis earlier today but subsequent episodes of emesis have been clear. She denies lightheadedness, dizziness, abdominal pain, change in bowel function. Abdominal surgical history significant for Sandra-en-Y gastric bypass on 05/10/23 as well as remote lap gerardo (2009). Patient was discharged after her recent Sandra on Lovenox given increased risk for VTE. Represented approximately week after surgery with abdominal pain which was concerning for hemoperitoneum; she was admitted at that time for serial abdominal exams and serial hemoglobins. She was discharged 2 days later off Lovenox. She denies any abdominal pain since that time. She remains off anyanticoagulation or antiplatelet medications. Work up revealed patient to be afebrile and hemodynamically stable. Basic labs including cbc, cmp, lipase demonstrate elevated lipase of 3563. Elevation in transaminases. AST 106, ALT 135, T. bili 2.0. A CT of the abdomen and pelvis was obtained which demonstrated no acute abnormalities. Nutrition Assessment: DTR referral for NPO/CLD x [address] c/s for TPN recs. 27F who is admitted s/p elective LRYGB (05/10/23) w/ concern for pancreatitis. CT pancreas looks normal however chemically, elevated lipase and labs c/w pancreatitis. Hx/o cholecystectomy in the past. No evidence of biliary dilation. Upper GI -no acute issues, some narrowing of GJ. Needs MRCP in setting of worsening LFTs unknown cause of pancreatitis. Pt continues CLD as tolerated w/ IVF and lyte replete. Not tolerating clears well. Still w/ persistent N/V despite aggressive antiemetics. Abd pain stable. Still moving her bowels. Wt at time of OR 405#. CBW 372#, reflective of significant 33# wt loss x 1 MO (8%). Pt is observed at bedside in NAD. Vistitor is present. Pt is a good wt historian and confirms most recent wt 372# is via SS.Bedscale wt obtained 375# w/ blankets and pillows on bed. 9 days post op pt was admitted for abd pain and found to have small area of hemoperitoneum. Hemoglobin trend was stable, she was DC'd in stable condition. Pt reports she has no desire to eat, turning away from food. She was having difficultytolerating even water due to siggnificant N/V, felt dehydrated. She presented to her surgeon's office and was given IVF. After her return to home she did not feel better so she presented to the ED. States today she feels worse than yesterday. MNT discussed for nausea, such as sour/salty foods (i.e.broth, lemon ice). She does find rubbing alcohol aromatherapy to tbe effective as well. TPN initiated today. Estimated Daily Nutrient Needs: Energy Requirements Based On: Kcal/kg Weight Used for Energy Requirements: [place] Weight for Energy Calculation (kg): 57 kg Total Energy Requirements (kcals/day): 9889-1284 (20-25 kcals/kg) Weight Used for Protein Requirements: [place] Weight in Kg Used for Protein Requirements: 57 kg Estimated Total Protein (g/day): 91-103 (1.6 g/kg) Estimated Daily Total Fluid (ml/day): per MD Nutrition Related Findings: Wound Type: Surgical Incision (healed following LRYGB 05/10/23) Isolation Status: none Food Allergies: NK Room Service: Selective Bashir Scale Score: 20 Net IO Since Admission: 0 mL [06/07/23 1438] Peripheral Vascular (WDL): Within Defined Limits Abdomen Inspection: Soft, Nondistended, Rounded Bowel Sounds (All Quadrants): Active Passing Flatus: Yes Bowel Incontinence: No Stool Appearance: Loose, Soft Stool Color: Brown, Green Emesis Color/Appearance: Green, Mucous Emesis Characteristics: Non-projectile GI symptoms: Nausea, Vomiting, and Abdominal Pain Nutrition History: Independent of feeding, Lives with family at home, and s/p LRYGB Intake/Output Summary (Last 24 hours) at 06/07/2023 1438 Last data filed at 06/07/2023 0900 Gross per 24 hour Intake 0 ml Output 0 ml Net 0 ml Labs/Meds Reviewed: acetaminophen, 1,000 mg, IntraVENous, q8h metoprolol, 2.5 mg, IntraVENous, q8h pantoprazole (ProtoNix) 40 mg in sodium chloride (PF) 0.9 % 10 mL injection, 40 mg, IntraVENous, BID potassium chloride, 40 mEq, IntraVENous, Once scopolamine, 1 patch, TransDERmal, q72h sodium chloride 0.9 % 1,000 mL with multiple vitamin 10 mL, thiamine 100 mg, folic acid 1 mg infusion, 250 mL/hr, IntraVENous, Once Adult TPN Central Line, 1,680 mL lactated Ringer's, 125 mL/hr, Last Rate: 125 mL/hr (06/06/23 0459) BMP: Recent Labs 06/05/23 00406/06/2332406/07/23222 NA 141 139 141 K 3.0* 3.2* 3.3* CL 106 107 107 CO2 22 21* 23 BUN <2* 2* 3* CREATININE 0.51* 0.52 0.53 GLUCOSE 89 83 86 CALCIUM 8.7 8.3* 8.4 MG 1.6 1.6 1.5* PHOS -- -- 3.5 Lab Results Component Value Date PHOS 3.5 06/07/2023 HEPATIC: Recent Labs 06/05/23 00406/06/2332406/07/23222 AST 131* 134* 157* ALT 166* 187* 237* BILITOT 2.0* 1.7* 1.7* ALKPHOS 59 53 63 CBC: Recent Labs 06/05/23 00406/06/23 0026 06/07/23222 WBC 7.2 6.5 6.6 HGB 10.7* 11.2* 10.8* HCT 35.4 36.7 35.8 MCV 73.8* 72.4* 73.4* PLT 423 430 398 Lab Results Component Value Date EFBP 65 01/12/2023 Lab Results Component Value Date LDLCALC 136 (H) 12/14/2022 HDL 30 (L) 12/14/2022 CHOL 184 12/14/2022 TRIG 91 12/14/2022 Lab Results Component Value Date TSH 3.605 12/14/2022 VITD25 <13 (L) 02/23/2023 [id number] 302 02/23/2023 FOLATE 3.3 12/14/2022 ZINC 84.4 12/14/2022 FERRITIN 16 02/23/2023 Lab Results Component Value Date HGBA1C 6.1 (H) 05/03/2023 HGBA1C 5.8 (H) 12/14/2022 Recent Labs 06/07/23 1136 POCGLU 81 Current Nutrition Therapies: Adult diet Clear liquid Adult TPN Central Line Current Oral Intake Average Meal Intake: 1-25%, 0% (CLD) Average Supplements Intake: None Ordered Parenteral Nutrition PN Type and Formula: 3-in-1 Custom PN Duration: Continuous PN Rate/Total Volume: 70 mL/hr (1,680 mL total volume) Current PN Order Provides: 450 dextrose kcals, 360 AA kcals (90 g), 330 lipid kcals; provides 1140 total kcals @ 20 kcals/day, 1.6 g protein/day per IBW <57 kg> Goal PN Order Provides: 640 dextrose kcals, 360 AA kcals (90 g), 425 lipid kcals; provides 1425 total kcals @ 25 kcals/day, 1.6 g protein/day per IBW <57 kg> Anthropometric Measures: Height: 165.7 cm (5' 5.25) Current Body Weight: 169 kg (372 lb) Weight Source: Standing Scale Usual Body Weight: 184 kg (405 lb) % Weight Change (Calculated): -8.1 [place] Body Weight (lbs) (Calculated): 126 lbs [place] Body Weight (Kg) (Calculated): 57 kg % [place] Body Weight (Calculated): 295.2 % BMI (kg/m2) (Calculated): 61.5 Weight Adjustment For: No Adjustment BMI Categories: Obese Class 3 (BMI 40.0 or greater) Weight History: Wt Readings from Last 20 Encounters: 06/07/23 (!) 169 kg (372 lb) 05/27/23 (!) 169 kg (372 lb 6.4 oz) 05/19/23 (!) 172 kg (380 lb) 05/10/23 (!) 184 kg (405 lb 8 oz) 05/03/23 (!) 183 kg (403 lb 14.4 oz) 04/08/23 (!) 183 kg (403 lb) 02/05/23 (!) 179 kg (394 lb 3.2 oz) 01/25/23 (!) 179 kg (395 lb) 01/18/23 (!) 180 kg (397 lb 9.6 oz) 01/12/23 (!) 179 kg (394 lb) 01/12/23 (!) 179 kg (394 lb) 01/08/23 (!) 180 kg (397 lb) 12/14/22 (!) 179 kg (394 lb) 12/14/22 (!) 177 kg (391 lb 3.2 oz) 11/02/22 (!) 177 kg (390 lb) 09/10/22 (!) 174 kg (383 lb 3.2 oz) Nutrition Diagnosis: Severe malnutrition, In context of acute illness or injury related to altered GI function, inadequate protein-energy intake as evidenced by GI abnormality, nausea, vomiting, Criteria as identified inmalnutrition assessment, poor intake prior to admission, intake 0-25%, weight loss greater than or equal to 5% in 1 month, lab values Nutrition Interventions: Nutrition Education/Counseling: No recommendation at this time Coordination of Nutrition Care: Continue to monitor while inpatient Plan of Care discussed with: pt, visitor is present Goals: Goals: Tolerate nutrition support at goal rate Nutrition Monitoring and Evaluation: Behavioral-Environmental Outcomes: None Identified Food/Nutrient Intake Outcomes: IVF Intake, Diet Advancement/Tolerance, Parenteral Nutrition Intake/Tolerance Physical Signs/Symptoms Outcomes: Biochemical Data, GI Status, Nausea or Vomiting, Fluid Status or Edema, Hemodynamic Status, Weight, Skin, Nutrition Focused Physical Findings Discharge Planning: Too soon to determine Laisha Villalba MS, RD, LD Contact: or YupiCall Chat (dial *[phone] from hospital phone) * Suze Cuba MD - 06/07/2023 9:11 AM EDT Images from the original note were not included. TPN Consult Name: Anne Marie Kristen : 1995(27 y.o.) Date: 06/07/23 CC: TPN HPI: 27 yo female s/p elective LRYGB 05/10/23. Developed nausea/vomiting/abdominal pain, [facility] where CTAP unremarkable but lipase >3000. Patient admitted for further evaluation, gut rest. Asked to see for parenteral nutrition. Past Medical History: Diagnosis Date Anemia Atrial fibrillation (HCC) 2 episodes Back pain COVID-19 vaccine series completed 10/2020 Daytime sleepiness SANTOS (dyspnea on exertion) Fatigue History of kidney stones History of UTI Incontinence Joint pain, knee PTSD (post-traumatic stress disorder) Sleep apnea, obstructive uses cpap Past Surgical History: Procedure Laterality Date COLONOSCOPY HERNIA REPAIR 1999 Dr. Memo Duke / Ernst Chavez [facility] - inguinal hernia LAP GASTRIC BYPASS/SANDRA-EN-Y (HISTORICAL) 05/10/2023 LRYGB - Dr. Shannan CROCKETT,CHOLECYSTECTOMY (HISTORICAL) 2009 Dr. Memo Duke / Ernst Chavez [facility] UPPER GASTROINTESTINAL ENDOSCOPY Allergies Allergen Reactions Nsaids S/P BARIATRIC SURGERY Family History Problem Relation Name Age of Onset Cancer Mother Hypertension Mother Obesity Mother Heart disease Father Obesity Father Cancer Maternal Grandmother Heart disease Maternal Grandmother Stroke Maternal Grandfather Hypertension Maternal Grandfather Heart disease Maternal Grandfather Diabetes Maternal Grandfather Obesity Maternal Grandfather Anesthesia problems Maternal Grandfather Social History Socioeconomic History Marital status: Significant Other Tobacco Use Smoking status: Never Smokeless tobacco: Never Vaping Use Vaping Use: Never used Substance and Sexual Activity Alcohol use: Not Currently Drug use: Never Sexual activity: Yes Partners: Male control/protection: I.U.D. Social Determinants of Health Financial Resource Strain: Low Risk (05/19/2023) Overall Financial Resource Strain (CARDIA) Difficulty of Paying Living Expenses: Not hard at all Food Insecurity: No Food Insecurity (05/19/2023) Hunger Vital Sign Worried About Running Out of Food in the Last Year: Never true Ran Out of Food in the Last Year: Never true Transportation Needs: No Transportation Needs (05/19/2023) PRAPARE - Transportation Lack of Transportation (Medical): No Lack of Transportation (Non-Medical): No Physical Activity: Inactive (05/19/2023) Exercise Vital Sign Days of Exercise per Week: 0 days Minutes of Exercise per Session: 0 min Stress: No Stress Concern Present (05/19/2023) [employer] - Occupational Stress Questionnaire Feeling of Stress : Only a little Social Connections: Socially Isolated (05/19/2023) Social Connection and Isolation Panel [NHANES] Frequency of Communication with Friends and Family: More than three times a week Frequency of Social Gatherings with Friends and Family: More than three times a week Attends [employer] Services: Never Active Member of Clubs or Organizations: Patient unable to answer Attends Club or Organization Meetings: Never Marital Status: Never Intimate Partner Violence: Not At Risk (06/04/2023) Humiliation, Afraid, Rape, and Kick questionnaire Fear of Current or Ex-Partner: No Emotionally Abused: No Physically Abused: No Sexually Abused: No Housing Stability: Low Risk (05/19/2023) Housing Stability Vital Sign Unable to Pay for Housing in the Last Year: No Number of Places Lived in the Last Year: 1 Unstable Housing in the Last Year: No Home Meds: Prior to Admission medications Medication Sig Start Date End Date Taking? Authorizing Provider calcium carbonate (Tums) 500 MG chewable tablet Chew 500 mg 3 times daily. 05/21/23 Historical Provider, Cyanocobalamin (Vitamin B-12) [address] 1 Dose under the tongue daily. 12/15/22 Historical Provider, ferrous sulfate 325 (65 Fe) MG tablet Take 1 tablet (325 mg) by mouth 2 times daily. 12/15/22 SUZANNA Lyons magnesium 30 MG tablet Take 30 mg by mouth 2 times daily. Historical Provider, metoprolol succinate XL (Toprol-XL) 25 MG 24 hr tablet Take 1 tablet (25 mg) by mouth daily. Patient taking differently: Take 50 mg by mouth daily. 01/08/23 01/08/24 Delphine Sanchez MD omeprazole (PriLOSEC) [address] capsule Take 1 capsule (20 mg) by mouth daily. Do not crush or chew.04/08/23 Memo Campbell MD Pediatric Multivitamins-Iron (FLINTSTONES PLUS IRON PO) Take 2 tablets by mouth daily. 05/21/23 Historical Provider, Respiratory Therapy Supplies (CareTouch 2 CPAP Hose Dominatrix) misc 10 cm h20 Historical Provider, VITAMIN D, CHOLECALCIFEROL, PO Take 4,000 Int'l Units by mouth daily. 05/21/23 Historical Provider, Medications: acetaminophen, 1,000 mg, IntraVENous, q8h lactated ringers, 500 mL, IntraVENous, Once magnesium sulfate, 2,000 mg, IntraVENous, Once metoprolol, 2.5 mg, IntraVENous, q8h pantoprazole (ProtoNix) 40 mg in sodium chloride (PF) 0.9 % 10 mL injection, 40 mg, IntraVENous, BID potassium chloride, 40 mEq, IntraVENous, Once scopolamine, 1 patch, TransDERmal, q72h sodium chloride 0.9 % 1,000 mL with multiple vitamin 10 mL, thiamine 100 mg, folic acid 1 mg infusion, 250 mL/hr, IntraVENous, Once PRN Meds: PRN medications: naloxone, ondansetron, promethazine OR promethazine OR promethazine IV: lactated Ringer's, 125 mL/hr, Last Rate: 125 mL/hr (06/06/23 0459) Diet: Adult diet Clear liquid I/Os:No intake or output data in the 24 hours ending 06/07/23 0928 Review of Systems Constitutional: Positive for activity change, appetite change, fatigue and unexpected weight change. Gastrointestinal: Positive for abdominal pain, nausea and vomiting. All other systems reviewed and are negative. Line: PICC L basilic DL @ 53 cm-->pulled back 4cm after CXR reviewed Date placed: 06/07/23 Vitals: 06/06/23 2029 06/07/23 0132 06/07/23 0507 06/07/23 0805 BP: 129/67 146/91 121/72 123/76 BP Location: Left arm Right arm Left arm Patient Position: Sitting Lying Sitting Pulse: 50 50 53 53 Resp: 20 16 16 16 Temp: 36.1 C (96.9 F) 36.3 C (97.3 F) (!) 35.9 C (96.6 F) 36.8 C (98.2 F) TempSrc: Temporal Temporal Temporal Temporal SpO2: 100% 97% 98% 97% ABW: Admission weight: BMI: There is no height or weight on file to calculate BMI. Weight History: Wt Readings from Last 20 Encounters: 05/27/23 (!) 169 kg (372 lb 6.4 oz) 05/19/23 (!) 172 kg (380 lb) 05/10/23 (!) 184 kg (405 lb 8 oz) 05/03/23 (!) 183 kg (403 lb 14.4 oz) 04/08/23 (!) 183 kg (403 lb) 02/05/23 (!) 179 kg (394 lb 3.2 oz) 01/25/23 (!) 179 kg (395 lb) 01/18/23 (!) 180 kg (397 lb 9.6 oz) 01/12/23 (!) 179 kg (394 lb) 01/12/23 (!) 179 kg (394 lb) 01/08/23 (!) 180 kg (397 lb) 12/14/22 (!) 179 kg (394 lb) 12/14/22 (!) 177 kg (391 lb 3.2 oz) 11/02/22 (!) 177 kg (390 lb) 09/10/22 (!) 174 kg (383 lb 3.2 oz) Physical Exam Vitals and nursing note reviewed. Constitutional: Comments: WD morbidly obese female awake/alert, resting in bed, anxious re procedure but NAD HENT: Head: Normocephalic and atraumatic. Mouth/Throat: Mouth: Mucous membranes are moist. Pharynx: Oropharynx is clear. Eyes: Conjunctiva/sclera: Conjunctivae normal. Pupils: Pupils are equal, round, and reactive to light. Neck: Comments: trachea midline Cardiovascular: Rate and Rhythm: Normal rate and regular rhythm. Comments: Periph pulses palp bilat Pulmonary: Effort: Pulmonary effort is normal. No respiratory distress. Breath sounds: No stridor. Abdominal: Palpations: Abdomen is soft. Tenderness: There is no guarding or rebound. Comments: Decreased BS, non acute on palpation Musculoskeletal: Comments: Difficult to eval for loss of muscle mass or fat stores due to body habitus No significant peripheral edema Skin: General: Skin is warm. Capillary Refill: Capillary refill takes less than 2 seconds. Coloration: Skin is not jaundiced. Neurological: General: No focal deficit present. Cranial Nerves: No cranial nerve deficit. Psychiatric: Behavior: Behavior normal. Thought Content: Thought content normal. CBC: Recent Labs 06/05/23 0049 06/06/23 0026 06/07/23 0223 WBC 7.2 6.5 6.6 HGB 10.7* 11.2* 10.8* HCT 35.4 36.7 35.8 MCV 73.8* 72.4* 73.4* PLT 423 430 398 TPN LABS: Recent Labs 06/05/234806/06/2332406/07/23222 NA 141 139 141 K 3.0* 3.2* 3.3* CL 106 107 107 CO2 22 21* 23 BUN <2* 2* 3* CREATININE 0.51* 0.52 0.53 GLUCOSE 89 83 86 CALCIUM 8.7 8.3* 8.4 MG 1.6 1.6 1.5* Recent Labs 06/05/234806/06/2332406/07/23222 AST 131* 134* 157* ALT 166* 187* 237* BILITOT 2.0* 1.7* 1.7* ALKPHOS 59 53 63 Lab Results Component Value Date ZINC 84.4 12/14/2022 Assessment: Malnutrition -pt meets ASPEN criteria for severe malnutrition: decreased po intake, accelerated wt loss beyond what would be expected based on surgical procedure -high risk to refeed, start with 20 kcals/kg IBW, 1.6 gms prot/kg IBW Hypokalemia Hypomagnesemia -KCL bolus this a.m. -bolus mag via TPN LRYGB Pancreatitis -BMI 65 prior to surgery -sy/p uncomplicated elective laparoscopic sandra-en-Y procedure 05/10/23 -presented to [facility] 05/19/23 with abdominal pain, small area of hemoperitoneum, hgb stable, dischargedhome 05/21/23 -returned to ER 06/03/23 with n/v x 2 days, lipase 3563, CTAP unremarkable Hepatic steatosis -noted on CTAP 05/19/23 Transaminitis -values normal 05/19/23, now both moderately elevated, trending up Hyperbilirubinemia -normal 05/19/23, up to 2 this admission, trending down Paroxysmal atrial fibrillation -Toprol XL daily -onset 11/2022, follows with cardiology, MOE -CPAP HTN Mixed hyperlipidemia PTSD Arthralgias Anemia Plan: -TPN appropriate, macronutrients as below -start POCT glucose checks/SSI until we see how sugars react to TPN, goal is <= 180 while TPN infusing -use Trace 5 when available as contains selenium -recheck zinc level in a.m. (84.4 in 01/2023), ionized calcium in a.m. -thiamine 100 mg in tpn daily -TPN protocol labs with hepatic function and triglycerides q Wednesday -adjust IV fluids - dc current LR @ 75 cc/hr when TPN starts, TPN volume will be 1680 cc, which infuses as 70 cc/hr; additional fluids as appropriate TPN macronutrient calculations: Ht: 5' 5 Actual BW: 372 lbs/ 169 kgs IBW: 125 lbs/ 56.8 kgs Start TOTAL Kcal = 1136 @ 20 Kcal/kg of IBW Goal TOTAL Kcal = 1420 @ 25 Kcal/kg of IBW Protein: 90 grams @ 1.6 grams/kg of IBW for 360 kcal Carbs: Start- 450 Kcal Lipid: Start- 330 Kcal Goal- 640 Kcal Goal- 420 Kcal I spent minimum of 75 minutes caring for this patient today: examining the patient, obtaining history, reviewing and personally interpreting labs, reviewing records from previous facilities, orderingmedications/tests as indicated and documenting in the record. Discussed with primary service, patien t, and family. documented in this [place] [id number] NotePICC line pulled back 4 cm after CXR viewed with DR. Cuba. PICC is ok for use.[facility] 06-07-2023 Procedure note* Denise Hemphill RN - 06/07/2023 4:50 PM EDT PICC line pulled back 4 cm after CXR viewed with DR. Cuba. PICC is ok for use. [facility] Work Phone: 1(446) 565-847104-15-2024 Procedure note* Denise Hemphill RN - 06/07/2023 4:50 PM EDT PICC line pulled back 4 cm after CXR viewed with DR. Cuba. PICC is ok for use. * Suze Cuba MD - 06/07/2023 2:54 PM EDTAssociated Order(s): PICC Insertion/Replacement Post-Procedure Diagnose(s): Acute pancreatitis, unspecified complication status, unspecified pancreatitis type; On total parenteral nutrition PICC Insertion/Replacement Date/Time: 06/07/2023 2:54 PM Performed by: Suze Cuba MD Authorized by: Suze Cuba MD Consent: The indications, risks, benefits, alternatives to the procedure were explained to the patient/surrogate decision maker and their questions answered. Consent was obtained to proceed with the procedure. Timeout: Completed immediately prior to the start of the procedure which included verification of the correct patient, correct site and agreement on the procedure to be done. Indications: Indications: Total Parenteral Nutrition (TPN) Anesthetic: Local anesthetic used: lidocaine without epinephrine Procedure details: Preparation: Skin prepped with chlorhexidine Skin prep agent dried: Skin prep agent completely dried prior to procedure Sterile barriers: All five maximal sterile barriers used - gloves, gown, cap, mask and large sterile sheet Hand hygiene: Hand hygiene performed prior to central venous catheter insertion Sterile technique: Sterile technique maintained throughout procedure. Site prior to insertion: Ecchymosis Procedure type: Insertion Orientation: left Location: Basilic Catheter type: Double lumen Catheter size: 5 Fr Lot #: [id number] Trimmed at (cm): 53 Inserted at (cm): 53 Ultrasound guidance: Yes Post-procedure: Post-procedure: Antimicrobial dressing applied and securement device Description/Findings: Flushes easily and blood returned Estimated blood loss: < 5 mL Specify complication(s): No apparent complications Follow-up chest x-ray: Ordered General Comments: PICC tip deep in RA on CXR, pulled back 4 cm. documented in this [facility] 06-07-2023 Procedure note* Suze Cuba MD - 06/07/2023 2:54 PM EDT Associated Order(s): PICC Insertion/Replacement Post-Procedure Diagnose(s): Acute pancreatitis, unspecified complication status, unspecified pancreatitis type; On total parenteral nutrition PICC Insertion/Replacement Date/Time: 06/07/2023 2:54 PM Performed by: Suze Cuba MD Authorized by: Suze Cuba MD Consent: The indications, risks, benefits, alternatives to the procedure were explained to the patient/surrogate decision maker and their questions answered. Consent was obtained to proceed with the procedure. Timeout: Completed immediately prior to the start of the procedure which included verification of the correct patient, correct site and agreement on the procedure to be done. Indications: Indications: Total Parenteral Nutrition (TPN) Anesthetic: Local anesthetic used: lidocaine without epinephrine Procedure details: Preparation: Skin prepped with chlorhexidine Skin prep agent dried: Skin prep agent completely dried prior to procedure Sterile barriers: All five maximal sterile barriers used - gloves, gown, cap, mask and large sterile sheet Hand hygiene: Hand hygiene performed prior to central venous catheter insertion Sterile technique: Sterile technique maintained throughout procedure. Site prior to insertion: Ecchymosis Procedure type: Insertion Orientation: left Location: Basilic Catheter type: Double lumen Catheter size: 5 Fr Lot #: [id number] Trimmed at (cm): 53 Inserted at (cm): 53 Ultrasound guidance: Yes Post-procedure: Post-procedure: Antimicrobial dressing applied and securement device Description/Findings: Flushes easily and blood returned Estimated blood loss: < 5 mL Specify complication(s): No apparent complications Follow-up chest x-ray: Ordered General Comments: PICC tip deep in RA on CXR, pulled back 4 cm. [id number] Consult note* Laisha Villalba RD - 06/07/2023 1:22 PM EDT Associated Order(s): IP CONSULT TO DIETITIAN Nutrition Assessment Type and Reason for Visit: Initial, Consult Nutrition Recommendations/Plan: Pt meets ASPEN/AND criteria for malnutrition as indicated below CLD as tolerated; Initial TPN rate remains appropriate: 450 dextrose kcals, 360 AA kcals (90 g), 330 lipid kcals; provides 1140 total kcals @ 20 kcals/day, 1.6 g protein/day per IBW <57 kg> Suggest TPN goal 640 dextrose kcals, 360 AA kcals (90 g), 425 lipid kcals; provides 1425 total kcals @ 25 kcals/day, 1.6 g protein/day per IBW <57 kg> Increased risk for refeeding syndrome; Trend labs, BMP, Mg, PO4, closely replete appropriate. Will continue to monitor labs, meds, po intakes and/or alternative nutrition tolerance, skin integrity, wt trends, and overall nutrition status - RD to follow weekly Malnutrition Assessment: Malnutrition Status: Severe malnutrition (has not has substantial or adequate nutrition during recovery s/p LRYGB 05/10/23) Context: Acute Illness Findings of the 6 clinical characteristics of malnutrition: Energy Intake: 50% or less of estimated energy requirements for 5 or more days Weight Loss: 5% over 1 month Body Fat Loss: No significant body fat loss Muscle Mass Loss: No significant muscle mass loss Fluid Accumulation: No significant fluid accumulation Final Touch Up Painter Strength: Not Performed HPI: Anne Marie Peterson is a 27 y.o. female with significant past medical history of a fib, PTSD who presents with nausea and vomiting. Patient reports approximately 2 days of nausea vomiting. Did have thin, light red emesis earlier today but subsequent episodes of emesis have been clear. She denies lightheadedness, dizziness, abdominal pain, change in bowel function. Abdominal surgical history significant for Sandra-en-Y gastric bypass on 05/10/23 as well as remote lap gerardo (2009). Patient was discharged after her recent Sandra on Lovenox given increased risk for VTE. Represented approximately week after surgery with abdominal pain which was concerning for hemoperitoneum; she was admitted at that time for serial abdominal exams and serial hemoglobins. She was discharged 2 days later off Lovenox. She denies any abdominal pain since that time. She remains off anyanticoagulation or antiplatelet medications. Work up revealed patient to be afebrile and hemodynamically stable. Basic labs including cbc, cmp, lipase demonstrate elevated lipase of 3563. Elevation in transaminases. AST 106, ALT 135, T. bili 2.0. A CT of the abdomen and pelvis was obtained which demonstrated no acute abnormalities. Nutrition Assessment: DTR referral for NPO/CLD x [address] c/s for TPN recs. 27F who is admitted s/p elective LRYGB (05/10/23) w/ concern for pancreatitis. CT pancreas looks normal however chemically, elevated lipase and labs c/w pancreatitis. Hx/o cholecystectomy in the past. No evidence of biliary dilation. Upper GI -no acute issues, some narrowing of GJ. Needs MRCP in setting of worsening LFTs unknown cause of pancreatitis. Pt continues CLD as tolerated w/ IVF and lyte replete. Not tolerating clears well. Still w/ persistent N/V despite aggressive antiemetics. Abd pain stable. Still moving her bowels. Wt at time of OR 405#. CBW 372#, reflective of significant 33# wt loss x 1 MO (8%). Pt is observed at bedside in NAD. Vistitor is present. Pt is a good wt historian and confirms most recent wt 372# is via SS.Bedscale wt obtained 375# w/ blankets and pillows on bed. 9 days post op pt was admitted for abd pain and found to have small area of hemoperitoneum. Hemoglobin trend was stable, she was DC'd in stable condition. Pt reports she has no desire to eat, turning away from food. She was having difficultytolerating even water due to siggnificant N/V, felt dehydrated. She presented to her surgeon's office and was given IVF. After her return to home she did not feel better so she presented to the ED. States today she feels worse than yesterday. MNT discussed for nausea, such as sour/salty foods (i.e.broth, lemon ice). She does find rubbing alcohol aromatherapy to tbe effective as well. TPN initiated today. Estimated Daily Nutrient Needs: Energy Requirements Based On: Kcal/kg Weight Used for Energy Requirements: [place] Weight for Energy Calculation (kg): 57 kg Total Energy Requirements (kcals/day): 2010-4568 (20-25 kcals/kg) Weight Used for Protein Requirements: [place] Weight in Kg Used for Protein Requirements: 57 kg Estimated Total Protein (g/day): 91-103 (1.6 g/kg) Estimated Daily Total Fluid (ml/day): per MD Nutrition Related Findings: Wound Type: Surgical Incision (healed following LRYGB 05/10/23) Isolation Status: none Food Allergies: NKFA Room Service: Selective Bashir Scale Score: 20 Net IO Since Admission: 0 mL [06/07/23 1438] Peripheral Vascular (WDL): Within Defined Limits Abdomen Inspection: Soft, Nondistended, Rounded Bowel Sounds (All Quadrants): Active Passing Flatus: Yes Bowel Incontinence: No Stool Appearance: Loose, Soft Stool Color: Brown, Green Emesis Color/Appearance: Green, Mucous Emesis Characteristics: Non-projectile GI symptoms: Nausea, Vomiting, and Abdominal Pain Nutrition History: Independent of feeding, Lives with family at home, and s/p LRYGB Intake/Output Summary (Last 24 hours) at 06/07/20231437 Last data filed at 06/07/2023 0900 Gross per 24 hour Intake 0 ml Output 0 ml Net 0 ml Labs/Meds Reviewed: acetaminophen, 1,000 mg, IntraVENous, q8h metoprolol, 2.5 mg, IntraVENous, q8h pantoprazole (ProtoNix) 40 mg in sodium chloride (PF) 0.9 % 10 mL injection, 40 mg, IntraVENous, BID potassium chloride, 40 mEq, IntraVENous, Once scopolamine, 1 patch, TransDERmal, q72h sodium chloride 0.9 % 1,000 mL with multiple vitamin 10 mL, thiamine 100 mg, folic acid 1 mg infusion, 250 mL/hr, IntraVENous, Once Adult TPN Central Line, 1,680 mL lactated Ringer's, 125 mL/hr, Last Rate: 125 mL/hr (06/06/23 0459) BMP: Recent Labs 06/05/234806/06/2332406/07/23222 NA 141 139 141 K 3.0* 3.2* 3.3* CL 106 107 107 CO2 22 21* 23 BUN <2* 2* 3* CREATININE 0.51* 0.52 0.53 GLUCOSE 89 83 86 CALCIUM 8.7 8.3* 8.4 MG 1.6 1.6 1.5* PHOS -- -- 3.5 Lab Results Component Value Date PHOS 3.5 06/07/2023 HEPATIC: Recent Labs 06/05/234806/06/2332406/07/23222 AST 131* 134* 157* ALT 166* 187* 237* BILITOT 2.0* 1.7* 1.7* ALKPHOS 59 53 63 CBC: Recent Labs 06/05/23 0049 06/06/23 0026 06/07/23222 WBC 7.2 6.5 6.6 HGB 10.7* 11.2* 10.8* HCT 35.4 36.7 35.8 MCV 73.8* 72.4* 73.4* PLT 423 430 398 Lab Results Component Value Date EFBP 65 01/12/2023 Lab Results Component Value Date LDLCALC 136 (H) 12/14/2022 HDL 30 (L) 12/14/2022 CHOL 184 12/14/2022 TRIG 91 12/14/2022 Lab Results Component Value Date TSH 3.605 12/14/2022 VITD25 <13 (L) 02/23/2023 [id number] 302 02/23/2023 FOLATE 3.3 12/14/2022 ZINC 84.4 12/14/2022 FERRITIN 16 02/23/2023 Lab Results Component Value Date HGBA1C 6.1 (H) 05/03/2023 HGBA1C 5.8 (H) 12/14/2022 Recent Labs 06/07/23 1136 POCGLU 81 Current Nutrition Therapies: Adult diet Clear liquid Adult TPN Central Line Current Oral Intake Average Meal Intake: 1-25%, 0% (CLD) Average Supplements Intake: None Ordered Parenteral Nutrition PN Type and Formula: 3-in-1 Custom PN Duration: Continuous PN Rate/Total Volume: 70 mL/hr (1,680 mL total volume) Current PN Order Provides: 450 dextrose kcals, 360 AA kcals (90 g), 330 lipid kcals; provides 1140 total kcals @ 20 kcals/day, 1.6 g protein/day per IBW <57 kg> Goal PN Order Provides: 640 dextrose kcals, 360 AA kcals (90 g), 425 lipid kcals; provides 1425 total kcals @ 25 kcals/day, 1.6 g protein/day per IBW <57 kg> Anthropometric Measures: Height: 165.7 cm (5' 5.25) Current Body Weight: 169 kg (372 lb) Weight Source: Standing Scale Usual Body Weight: 184 kg (405 lb) % Weight Change (Calculated): -8.1 [place] Body Weight (lbs) (Calculated): 126 lbs [place] Body Weight (Kg) (Calculated): 57 kg % [place] Body Weight (Calculated): 295.2 % BMI (kg/m2) (Calculated): 61.5 Weight Adjustment For: No Adjustment BMI Categories: Obese Class 3 (BMI 40.0 or greater) Weight History: Wt Readings from Last 20 Encounters: 06/07/23 (!) 169 kg (372 lb) 05/27/23 (!) 169 kg (372 lb 6.4 oz) 05/19/23 (!) 172 kg (380 lb) 05/10/23 (!) 184 kg (405 lb 8 oz) 05/03/23 (!) 183 kg (403 lb 14.4 oz) 04/08/23 (!) 183 kg (403 lb) 02/05/23 (!) 179 kg (394 lb 3.2 oz) 01/25/23 (!) 179 kg (395 lb) 01/18/23 (!) 180 kg (397 lb 9.6 oz) 01/12/23 (!) 179 kg (394 lb) 01/12/23 (!) 179 kg (394 lb) 01/08/23 (!) 180 kg (397 lb) 12/14/22 (!) 179 kg (394 lb) 12/14/22 (!) 177 kg (391 lb 3.2 oz) 11/02/22 (!) 177 kg (390 lb) 09/10/22 (!) 174 kg (383 lb 3.2 oz) Nutrition Diagnosis: Severe malnutrition, In context of acute illness or injury related to altered GI function, inadequate protein-energy intake as evidenced by GI abnormality, nausea, vomiting, Criteria as identified inmalnutrition assessment, poor intake prior to admission, intake 0-25%, weight loss greater than or equal to 5% in 1 month, lab values Nutrition Interventions: Nutrition Education/Counseling: No recommendation at this time Coordination of Nutrition Care: Continue to monitor while inpatient Plan of Care discussed with: pt, visitor is present Goals: Goals: Tolerate nutrition support at goal rate Nutrition Monitoring and Evaluation: Behavioral-Environmental Outcomes: None Identified Food/Nutrient Intake Outcomes: IVF Intake, Diet Advancement/Tolerance, Parenteral Nutrition Intake/Tolerance Physical Signs/Symptoms Outcomes: Biochemical Data, GI Status, Nausea or Vomiting, Fluid Status or Edema, Hemodynamic Status, Weight, Skin, Nutrition Focused Physical Findings Discharge Planning: Too soon to determine Laisha Villalba MS, RD, LD Contact: or YupiCall Chat (dial *[phone] from hospital phone) [facility] [id number] Note* Care Coordination - Adrián Abreu RN - 06/07/2023 10:56 AM EDT Images from the original note were not included. Care Management Progress Note Remains on H6, s/p recent LRYGB with concern for pancreatitis. New consult for possible TPN. On clear liquid diet and IV fluids, electrolyte replacement. Monitoring labs. Discharge plan is home independently pending progress. TCC will continue to follow. Discharge Milestones and Delays Expected Date/Time: 06/09/[address] discharge order Complete med reconciliation Case mgmt discharge readiness Clinical Stability Diagnsotic Workup Expected Discharge History Expected Date/Time Set By Reviewed At 06/09/2023 Adrián Abreu RN 06/07/2023 8:23 AM 06/06/2023 Seth Leal DO 06/06/2023 5:29 PM 06/05/2023 Adrián Abreu RN 06/04/2023 8:20 AM 06/05/2023 Christy Lopez MD 06/04/2023 12:42 AM 06/05/2023 Christy Lopez MD 06/03/2023 11:53 PM 06/05/2023 Christy Lopez MD 06/03/2023 11:48 PM 06/05/2023 Christy Lopez MD 06/03/2023 11:09 PM Length of Stay (Days): 1 GMLOS: No GMLOS Documented [facility] [id number] Note* Care Coordination - Adrián Abreu RN - 06/07/2023 10:56 AM EDT Images from the original note were not included. Care Management Progress Note Remains on H6, s/p recent LRYGB with concern for pancreatitis. New consult for possible TPN. On clear liquid diet and IV fluids, electrolyte replacement. Monitoring labs. Discharge plan is home independently pending progress. TCC will continue to follow. Discharge Milestones and Delays Expected Date/Time: 06/09/[address] discharge order Complete med reconciliation Case mgmt discharge readiness Clinical Stability Diagnsotic Workup Expected Discharge History Expected Date/Time Set By Reviewed At 06/09/2023 Adrián Abreu RN 06/07/2023 8:23 AM 06/06/2023 Seth Leal DO 06/06/2023 5:29 PM 06/05/2023 Adrián Abreu RN 06/04/2023 8:20 AM 06/05/2023 Christy Lopez MD 06/04/2023 12:42 AM 06/05/2023 Christy Lopez MD 06/03/2023 11:53 PM 06/05/2023 Christy Lopez MD 06/03/2023 11:48 PM 06/05/2023 Christy Lopez MD 06/03/2023 11:09 PM Length of Stay (Days): 1 GMLOS: No GMLOS Documented [facility] [id number] Consult note* Suze Cuba MD - 06/07/2023 9:11 AM EDT Images from the original note were not included. TPN Consult Name: Anne Marie Peterson : 1995(27 y.o.) Date: 06/07/23 CC: TPN HPI: 27 yo female s/p elective LRYGB 05/10/23. Developed nausea/vomiting/abdominal pain, presented to [facility] 06/03/23 where CTAP unremarkable but lipase >3000. Patient admitted for further evaluation, gut rest. Asked to see for parenteral nutrition. Past Medical History: Diagnosis Date Anemia Atrial fibrillation (HCC) 2 episodes Back pain COVID-19 vaccine series completed 10/2020 Daytime sleepiness SANTOS (dyspnea on exertion) Fatigue History of kidney stones History of UTI Incontinence Joint pain, knee PTSD (post-traumatic stress disorder) Sleep apnea, obstructive uses cpap Past Surgical History: Procedure Laterality Date COLONOSCOPY HERNIA REPAIR 1999 Dr. Memo Duke / Ernst Chavez [facility] - inguinal hernia LAP GASTRIC BYPASS/SANDRA-EN-Y (HISTORICAL) 05/10/2023 LRYGB - Dr. Campbell LAP,CHOLECYSTECTOMY (HISTORICAL) 2009 Dr. Memo Duke / Ernst Chavez [facility] UPPER GASTROINTESTINAL ENDOSCOPY Allergies Allergen Reactions Nsaids S/P BARIATRIC SURGERY Family History Problem Relation Name Age of Onset Cancer Mother Hypertension Mother Obesity Mother Heart disease Father Obesity Father Cancer Maternal Grandmother Heart disease Maternal Grandmother Stroke Maternal Grandfather Hypertension Maternal Grandfather Heart disease Maternal Grandfather Diabetes Maternal Grandfather Obesity Maternal Grandfather Anesthesia problems Maternal Grandfather Social History Socioeconomic History Marital status: Significant Other Tobacco Use Smoking status: Never Smokeless tobacco: Never Vaping Use Vaping Use: Never used Substance and Sexual Activity Alcohol use: Not Currently Drug use: Never Sexual activity: Yes Partners: Male control/protection: I.U.D. Social Determinants of Health Financial Resource Strain: Low Risk (05/19/2023) Overall Financial Resource Strain (CARDIA) Difficulty of Paying Living Expenses: Not hard at all Food Insecurity: No Food Insecurity (05/19/2023) Hunger Vital Sign Worried About Running Out of Food in the Last Year: Never true Ran Out of Food in the Last Year: Never true Transportation Needs: No Transportation Needs (05/19/2023) PRAPARE - Transportation Lack of Transportation (Medical): No Lack of Transportation (Non-Medical): No Physical Activity: Inactive (05/19/2023) Exercise Vital Sign Days of Exercise per Week: 0 days Minutes of Exercise per Session: 0 min Stress: No Stress Concern Present (05/19/2023) [employer] - Occupational Stress Questionnaire Feeling of Stress : Only a little Social Connections: Socially Isolated (05/19/2023) Social Connection and Isolation Panel [NHANES] Frequency of Communication with Friends and Family: More than three times a week Frequency of Social Gatherings with Friends and Family: More than three times a week Attends [employer] Services: Never Active Member of Clubs or Organizations: Patient unable to answer Attends Club or Organization Meetings: Never Marital Status: Never Intimate Partner Violence: Not At Risk (06/04/2023) Humiliation, Afraid, Rape, and Kick questionnaire Fear of Current or Ex-Partner: No Emotionally Abused: No Physically Abused: No Sexually Abused: No Housing Stability: Low Risk (05/19/2023) Housing Stability Vital Sign Unable to Pay for Housing in the Last Year: No Number of Places Lived in the Last Year: 1 Unstable Housing in the Last Year: No Home Meds: Prior to Admission medications Medication Sig Start Date End Date Taking? Authorizing Provider calcium carbonate (Tums) 500 MG chewable tablet Chew 500 mg 3 times daily. 05/21/23 Historical Provider, Cyanocobalamin (Vitamin B-12) [address] 1 Dose under the tongue daily. 12/15/22 Historical Provider, ferrous sulfate 325 (65 Fe) MG tablet Take 1 tablet (325 mg) by mouth 2 times daily. 12/15/22 SUZANNA Lyons magnesium 30 MG tablet Take 30 mg by mouth 2 times daily. Historical Provider, metoprolol succinate XL (Toprol-XL) 25 MG 24 hr tablet Take 1 tablet (25 mg) by mouth daily. Patient taking differently: Take 50 mg by mouth daily. 01/08/23 01/08/24 Delphine Sanchez MD omeprazole (PriLOSEC) [address] capsule Take 1 capsule (20 mg) by mouth daily. Do not crush or chew.04/08/23 Memo Campbell MD Pediatric Multivitamins-Iron (FLINTSTONES PLUS IRON PO) Take 2 tablets by mouth daily. 05/21/23 Historical Provider, Respiratory Therapy Supplies (CareTouch 2 CPAP Hose Dominatrix) misc 10 cm h20 Historical Provider, VITAMIN D, CHOLECALCIFEROL, PO Take 4,000 Int'l Units by mouth daily. 05/21/23 Historical Provider, Medications: acetaminophen, 1,000 mg, IntraVENous, q8h lactated ringers, 500 mL, IntraVENous, Once magnesium sulfate, 2,000 mg, IntraVENous, Once metoprolol, 2.5 mg, IntraVENous, q8h pantoprazole (ProtoNix) 40 mg in sodium chloride (PF) 0.9 % 10 mL injection, 40 mg, IntraVENous, BID potassium chloride, 40 mEq, IntraVENous, Once scopolamine, 1 patch, TransDERmal, q72h sodium chloride 0.9 % 1,000 mL with multiple vitamin 10 mL, thiamine 100 mg, folic acid 1 mg infusion, 250 mL/hr, IntraVENous, Once PRN Meds: PRN medications: naloxone, ondansetron, promethazine OR promethazine OR promethazine IV: lactated Ringer's, 125 mL/hr, Last Rate: 125 mL/hr (06/06/23 0459) Diet: Adult diet Clear liquid I/Os:No intake or output data in the 24 hours ending 06/07/23 0928 Review of Systems Constitutional: Positive for activity change, appetite change, fatigue and unexpected weight change. Gastrointestinal: Positive for abdominal pain, nausea and vomiting. All other systems reviewed and are negative. Line: PICC L basilic DL @ 53 cm-->pulled back 4cm after CXR reviewed Date placed: 06/07/23 Vitals: 06/06/23 2029 06/07/23 0132 06/07/23 0507 06/07/23 0805 BP: 129/67 146/91 121/72 123/76 BP Location: Left arm Right arm Left arm Patient Position: Sitting Lying Sitting Pulse: 50 50 53 53 Resp: 20 16 16 16 Temp: 36.1 C (96.9 F) 36.3 C (97.3 F) (!) 35.9 C (96.6 F) 36.8 C (98.2 F) TempSrc: Temporal Temporal Temporal Temporal SpO2: 100% 97% 98% 97% ABW: Admission weight: BMI: There is no height or weight on file to calculate BMI. Weight History: Wt Readings from Last 20 Encounters: 05/27/23 (!) 169 kg (372 lb 6.4 oz) 05/19/23 (!) 172 kg (380 lb) 05/10/23 (!) 184 kg (405 lb 8 oz) 05/03/23 (!) 183 kg (403 lb 14.4 oz) 04/08/23 (!) 183 kg (403 lb) 02/05/23 (!) 179 kg (394 lb 3.2 oz) 01/25/23 (!) 179 kg (395 lb) 01/18/23 (!) 180 kg (397 lb 9.6 oz) 01/12/23 (!) 179 kg (394 lb) 01/12/23 (!) 179 kg (394 lb) 01/08/23 (!) 180 kg (397 lb) 12/14/22 (!) 179 kg (394 lb) 12/14/22 (!) 177 kg (391 lb 3.2 oz) 11/02/22 (!) 177 kg (390 lb) 09/10/22 (!) 174 kg (383 lb 3.2 oz) Physical Exam Vitals and nursing note reviewed. Constitutional: Comments: WD morbidly obese female awake/alert, resting in bed, anxious re procedure but NAD HENT: Head: Normocephalic and atraumatic. Mouth/Throat: Mouth: Mucous membranes are moist. Pharynx: Oropharynx is clear. Eyes: Conjunctiva/sclera: Conjunctivae normal. Pupils: Pupils are equal, round, and reactive to light. Neck: Comments: trachea midline Cardiovascular: Rate and Rhythm: Normal rate and regular rhythm. Comments: Periph pulses palp bilat Pulmonary: Effort: Pulmonary effort is normal. No respiratory distress. Breath sounds: No stridor. Abdominal: Palpations: Abdomen is soft. Tenderness: There is no guarding or rebound. Comments: Decreased BS, non acute on palpation Musculoskeletal: Comments: Difficult to eval for loss of muscle mass or fat stores due to body habitus No significant peripheral edema Skin: General: Skin is warm. Capillary Refill: Capillary refill takes less than 2 seconds. Coloration: Skin is not jaundiced. Neurological: General: No focal deficit present. Cranial Nerves: No cranial nerve deficit. Psychiatric: Behavior: Behavior normal. Thought Content: Thought content normal. CBC: Recent Labs 06/05/23 0049 06/06/23 0026 06/07/23 0223 WBC 7.2 6.5 6.6 HGB 10.7* 11.2* 10.8* HCT 35.4 36.7 35.8 MCV 73.8* 72.4* 73.4* PLT 423 430 398 TPN LABS: Recent Labs 06/05/23 0049 06/06/23 0325 06/07/23 0223 NA 141 139 141 K 3.0* 3.2* 3.3* CL 106 107 107 CO2 22 21* 23 BUN <2* 2* 3* CREATININE 0.51* 0.52 0.53 GLUCOSE 89 83 86 CALCIUM 8.7 8.3* 8.4 MG 1.6 1.6 1.5* Recent Labs 06/05/23 0049 06/06/23 0325 06/07/23 0223 AST 131* 134* 157* ALT 166* 187* 237* BILITOT 2.0* 1.7* 1.7* ALKPHOS 59 53 63 Lab Results Component Value Date ZINC 84.4 12/14/2022 Assessment: Malnutrition -pt meets ASPEN criteria for severe malnutrition: decreased po intake, accelerated wt loss beyond what would be expected based on surgical procedure -high risk to refeed, start with 20 kcals/kg IBW, 1.6 gms prot/kg IBW Hypokalemia Hypomagnesemia -KCL bolus this a.m. -bolus mag via TPN LRYGB Pancreatitis -BMI 65 prior to surgery -sy/p uncomplicated elective laparoscopic sandra-en-Y procedure 05/10/23 -presented to [facility] 05/19/23 with abdominal pain, small area of hemoperitoneum, hgb stable, dischargedhome 05/21/23 -returned to ER 06/03/23 with n/v x 2 days, lipase 3563, CTAP unremarkable Hepatic steatosis -noted on CTAP 05/19/23 Transaminitis -values normal 05/19/23, now both moderately elevated, trending up Hyperbilirubinemia -normal 05/19/23, up to 2 this admission, trending down Paroxysmal atrial fibrillation -Toprol XL daily -onset 11/2022, follows with cardiology, MOE -CPAP HTN Mixed hyperlipidemia PTSD Arthralgias Anemia Plan: -TPN appropriate, macronutrients as below -start POCT glucose checks/SSI until we see how sugars react to TPN, goal is <= 180 while TPN infusing -use Trace 5 when available as contains selenium -recheck zinc level in a.m. (84.4 in 01/2023), ionized calcium in a.m. -thiamine 100 mg in tpn daily -TPN protocol labs with hepatic function and triglycerides q Wednesday -adjust IV fluids - dc current LR @ 75 cc/hr when TPN starts, TPN volume will be 1680 cc, which infuses as 70 cc/hr; additional fluids as appropriate TPN macronutrient calculations: Ht: 5' 5 Actual BW: 372 lbs/ 169 kgs IBW: 125 lbs/ 56.8 kgs Start TOTAL Kcal = 1136 @ 20 Kcal/kg of IBW Goal TOTAL Kcal = 1420 @ 25 Kcal/kg of IBW Protein: 90 grams @ 1.6 grams/kg of IBW for 360 kcal Carbs: Start- 450 Kcal Lipid: Start- 330 Kcal Goal- 640 Kcal Goal- 420 Kcal I spent minimum of 75 minutes caring for this patient today: examining the patient, obtaining history, reviewing and personally interpreting labs, reviewing records from previous facilities, orderingmedications/tests as indicated and documenting in the record. Discussed with primary service, cece gill, and family. [place] [id number] Note* Care Coordination - Adrián Abreu RN - 06/04/2023 11:39 AM EDT Care Managment Initial Assessment Date: 06/04/2023 Patient Name: Anne Marie Peterson : 1995 Patient Information Source of Information: Patient Cognition/Language: WFL - Within Functional Limits Permission given to speak with patient customer care representative/caregiver as indicated: Yes Confirmation of Payer with patient/family: Yes Payer Name: [employer] MEDICAID [place]: No Confirmation of Primary Care Physician: Confirmed PCP Name: Xenia Lane Seen in last 2 years?: Yes Primary Caregiver: Self If assistance needed, confirmed caregiver ready, willing and able to care for patient at discharge: Confirmed with: Living Arrangements Current Residence: House Number of Floors 2 Number of Entry Steps: 1 Bed/Bath Levels: Both second floor Facility: Facility Name: Plan to Return: Lives with: Children Support Systems: Children, Parent Activities of Daily Living Ambulation: Independent Bathing/Dressing: Independent Elimination/Continence/Toileting: Independent Feeding: Independent Who Assists with Activities of Daily Living: Instrumental Activities of Daily Living Prescription Coverage: Yes Pharmacy Used: [facility] [place] Medication Management: Independent Transportation/Shopping: Independent Transportation Mode: Car Needs Assistance with Transportation at Discharge: No Meal Preparation: Independent Laundry/Cleaning: Independent Finances/Bill Paying: Independent Communication: Independent Types of Care Services/Equipment Utilized Care Services: (NA) Dialysis Type: NA Durable Medical Equipment: Cane Patient's Goal/Discharge Plan Patient expects to be discharged to: HOME Discharge Planning Actions: No needs identified Patient's Choice Rights and [employer] and Collaborative Relationships Disclosed as Indicated for Post-Acute Care: NA Interdisciplinary Team Engagement: Social Work Referral for: Additional Information: Met with patient and her mother at their bedside. Introduced self and role. Discussed discharge planning. Patient has help at home and transportation available upon discharge. Discharge plan is home with assistance of her mother and grandmother. Patient verbalized understanding of discharge plan and agrees with plan. [id number] Care Coordination - Adrián Abreu RN - 06/04/2023 11:39 AM EDT Care Managment Initial Assessment Date: 06/04/2023 Patient Name: Anne Marie Pteerson : 1995 Patient Information Source of Information: Patient Cognition/Language: WFL - Within Functional Limits Permission given to speak with patient customer care representative/caregiver as indicated: Yes Confirmation of Payer with patient/family: Yes Payer Name: [facility] MEDICAID [place]: No Confirmation of Primary Care Physician: Confirmed PCP Name: Xenia Lane Seen in last 2 years?: Yes Primary Caregiver: Self If assistance needed, confirmed caregiver ready, willing and able to care for patient at discharge: Confirmed with: Living Arrangements Current Residence: House Number of Floors 2 Number of Entry Steps: 1 Bed/Bath Levels: Both second floor Facility: Facility Name: Plan to Return: Lives with: Children Support Systems: Children, Parent Activities of Daily Living Ambulation: Independent Bathing/Dressing: Independent Elimination/Continence/Toileting: Independent Feeding: Independent Who Assists with Activities of Daily Living: Instrumental Activities of Daily Living Prescription Coverage: Yes Pharmacy Used: [facility] [place] Medication Management: Independent Transportation/Shopping: Independent Transportation Mode: Car Needs Assistance with Transportation at Discharge: No Meal Preparation: Independent Laundry/Cleaning: Independent Finances/Bill Paying: Independent Communication: Independent Types of Care Services/Equipment Utilized Care Services: (NA) Dialysis Type: NA Durable Medical Equipment: Cane Patient's Goal/Discharge Plan Patient expects to be discharged to: HOME Discharge Planning Actions: No needs identified Patient's Choice Rights and [employer] and Collaborative Relationships Disclosed as Indicated for Post-Acute Care: NA Interdisciplinary Team Engagement: Social Work Referral for: Additional Information: Met with patient and her mother at their bedside. Introduced self and role. Discussed discharge planning. Patient has help at home and transportation available upon discharge. Discharge plan is home with assistance of her mother and grandmother. Patient verbalized understanding of discharge plan and agrees with plan. [id number] Emergency department Note* Osman Swartz RN - 06/03/2023 11:00 PM EDT SX at [facility] Swartz RN 06/03/23 230 [id number] Emergency department Note* Osman Swartz RN - 06/03/2023 11:00 PM EDT SX at [facility] Swartz RN 06/03/23 2300 * Sebastian Gibbs RN - 06/03/2023 10:02 PM EDT Pt has even and equal chest rise. Pt A+Ox4. Nabeel BRISENO talking to patient at this time. Sebastian Gibbs RN 06/03/232201 * Jolly Guajardo RN - 06/03/2023 9:19 PM EDT Pt transferring to [facility] by private car. Pt alright to leave IV in per Dr. Colorado. Jolly Guajardo RN 06/03/232119 * Artemio Colorado MD - 06/03/2023 7:14 PM EDT EMERGENCY DEPARTMENT ENCOUNTER Pt Name: Anne Marie Peterson Birthdate 1995 Date of evaluation: 06/03/2023 ED Provider: Artemio Colorado MD CHIEF COMPLAINT Chief Complaint Patient presents with Vomiting HISTORY OF PRESENT ILLNESS I wore appropriate PPE for the entirety of this encounter. HPI Anne Marie Peterson is a 27 y.o. person who presents to the emergency department with concern for vomiting x 2 days. Has a recent gastric bypass surgery last month she developed hemoperitoneum after the procedure although was otherwise stable prior to discharge during her most recent hospitalization. States 2 days ago developed nausea and vomiting has had about 5 episodes today. She went to her surgeons office where they gave her 2 L of fluid although patient endorses still not being able to urinate. She did try Zofran that she had leftover from the surgery although still feeling fairly nauseated. She feels like her mouth is very dry endorses some slight left-sided abdominal pain although believes it is likely from throwing up so much. Hemoperitoneum was noted on the right side of her abdomendenies any pain associated with this. When she is able to urinate denies any pain or burning with this Nursing Notes were reviewed. Limitations to history: None Outside historians: None REVIEW OF SYSTEMS Review of Systems Gastrointestinal: Positive for abdominal pain, diarrhea, nausea and vomiting. PAST MEDICAL HISTORY Past Medical History: Diagnosis Date Anemia Atrial fibrillation (HCC) 2 episodes Back pain COVID-19 vaccine series completed 10/2020 Daytime sleepiness SANTOS (dyspnea on exertion) Fatigue History of kidney stones History of UTI Incontinence Joint pain, knee PTSD (post-traumatic stress disorder) Sleep apnea, obstructive uses cpap SURGICAL HISTORY Past Surgical History: Procedure Laterality Date COLONOSCOPY HERNIA REPAIR 1999 Dr. Memo Duke / Ernst Chavez [facility] - inguinal hernia LAP GASTRIC BYPASS/SANDRA-EN-Y (HISTORICAL) 05/10/2023 [facility] - Dr. Campbell LAP,CHOLECYSTECTOMY (HISTORICAL) 2009 Dr. Memo Duke / Ernst Chavez [facility] UPPER GASTROINTESTINAL ENDOSCOPY CURRENT MEDICATIONS Previous Medications CALCIUM CARBONATE (TUMS) 500 MG CHEWABLE TABLET Chew 500 mg 3 times daily. CYANOCOBALAMIN (VITAMIN B-12) [address] 1 Dose under the tongue daily. FERROUS SULFATE 325 (65 FE) MG TABLET Take 1 tablet (325 mg) by mouth 2 times daily. MAGNESIUM 30 MG TABLET Take 30 mg by mouth 2 times daily. METOPROLOL SUCCINATE XL (TOPROL-XL) 25 MG 24 HR TABLET Take 1 tablet (25 mg) by mouth daily. OMEPRAZOLE (PRILOSEC) [address] CAPSULE Take 1 capsule (20 mg) by mouth daily. Do not crush or chew. PEDIATRIC MULTIVITAMINS-IRON (FLINTSTONES PLUS IRON PO) Take 2 tablets by mouth daily. RESPIRATORY THERAPY SUPPLIES (CARETOUCH 2 CPAP HOSE PRODUCE SHIPPER) MISC 10 cm h20 VITAMIN D, CHOLECALCIFEROL, PO Take 4,000 Int'l Units by mouth daily. ALLERGIES Nsaids FAMILY HISTORY Family History Problem Relation Name Age of Onset Cancer Mother Hypertension Mother Obesity Mother Heart disease Father Obesity Father Cancer Maternal Grandmother Heart disease Maternal Grandmother Stroke Maternal Grandfather Hypertension Maternal Grandfather Heart disease Maternal Grandfather Diabetes Maternal Grandfather Obesity Maternal Grandfather Anesthesia problems Maternal Grandfather SOCIAL HISTORY Social History Socioeconomic History Marital status: Significant Other Tobacco Use Smoking status: Never Smokeless tobacco: Never Vaping Use Vaping Use: Never used Substance and Sexual Activity Alcohol use: Not Currently Drug use: Never Sexual activity: Yes Partners: Male control/protection: I.U.D. Social Determinants of Health Financial Resource Strain: Low Risk (05/19/2023) Overall Financial Resource Strain (CARDIA) Difficulty of Paying Living Expenses: Not hard at all Food Insecurity: No Food Insecurity (05/19/2023) Hunger Vital Sign Worried About Running Out of Food in the Last Year: Never true Ran Out of Food in the Last Year: Never true Transportation Needs: No Transportation Needs (05/19/2023) PRAPARE - Transportation Lack of Transportation (Medical): No Lack of Transportation (Non-Medical): No Physical Activity: Inactive (05/19/2023) Exercise Vital Sign Days of Exercise per Week: 0 days Minutes of Exercise per Session: 0 min Stress: No Stress Concern Present (05/19/2023) [employer] - Occupational Stress Questionnaire Feeling of Stress : Only a little Social Connections: Socially Isolated (05/19/2023) Social Connection and Isolation Panel [NHANES] Frequency of Communication with Friends and Family: More than three times a week Frequency of Social Gatherings with Friends and Family: More than three times a week Attends Mormonism Services: Never Active Member of Clubs or Organizations: Patient unable to answer Attends Club or Organization Meetings: Never Marital Status: Never Intimate Partner Violence: Not At Risk (05/19/2023) Humiliation, Afraid, Rape, and Kick questionnaire Fear of Current or Ex-Partner: No Emotionally Abused: No Physically Abused: No Sexually Abused: No Housing Stability: Low Risk (05/19/2023) Housing Stability Vital Sign Unable to Pay for Housing in the Last Year: No Number of Places Lived in the Last Year: 1 Unstable Housing in the Last Year: No SCREENINGS PHYSICAL EXAM ED Triage Vitals [06/03/23 1918] Temp Heart Rate Resp BP (!) 35.7 C (96.3 F) 75 19 (!) 135/91 SpO2 Temp Source Heart Rate Source Patient Position 96 % Temporal Monitor -- BP Location FiO2 (%) -- -- Physical Exam Vitals and nursing note reviewed. Constitutional: General: She is not in acute distress. Appearance: She is well-developed. HENT: Head: Normocephalic and atraumatic. Mouth/Throat: Mouth: Mucous membranes are dry. Eyes: Conjunctiva/sclera: Conjunctivae normal. Cardiovascular: Rate and Rhythm: Normal rate and regular rhythm. Heart sounds: No murmur heard. Pulmonary: Effort: Pulmonary effort is normal. No respiratory distress. Breath sounds: Normal breath sounds. Abdominal: Palpations: Abdomen is soft. Tenderness: There is abdominal tenderness (LUQ and LLQ). Musculoskeletal: General: No swelling. Cervical back: Neck supple. Skin: General: Skin is warm and dry. Capillary Refill: Capillary refill takes less than 2 seconds. Neurological: Mental Status: She is alert. Psychiatric: Mood and Affect: Mood normal. DIAGNOSTIC RESULTS RADIOLOGY (Per Emergency Physician): Interpretation per the Radiologist below, if available at the time of this note: CT abdomen pelvis w contrast Final Result 1. No acute process. Report Dictated on Electronically Signed By: Giorgio Sofia MD Electronically Signed Date/Time: 06/03/2023 9:12 PM EDT EKG Interpretation: LABS: Labs Reviewed CBC WITH AUTO DIFFERENTIAL - Abnormal Result Value Auto WBC 8.1 RBC 5.39 (*) Hemoglobin 11.8 Hematocrit 39.4 MCV 73.1 (*) MCH 21.9 (*) MCHC 29.9 (*) RDW 18.9 (*) Platelets 522 (*) MPV 10.9 nRBC 0.0 Neutrophils Relative 64.1 Lymphocytes Relative 24.7 Monocytes Relative 8.4 Eosinophils Relative 1.7 Basophils Relative 0.4 Immature Grans % 0.7 Neutrophils Absolute 5.2 Lymphocytes Absolute 2.0 Monocytes Absolute 0.7 Eosinophils Absolute 0.1 Basophils Absolute 0.0 Immature Grans Absolute 0.1 (*) COMPREHENSIVE METABOLIC PANEL - Abnormal SODIUM 139 POTASSIUM 3.4 (*) CHLORIDE 104 CARBON DIOXIDE 19 (*) ANION GAP 16 (*) UREA NITROGEN <2 (*) CREATININE 0.57 GLUCOSE 103 (*) CALCIUM 8.9 AST (SGOT) 106 (*) ALT 135 (*) ALKALINE PHOSPHATASE 65 ALBUMIN 4.2 BILIRUBIN, TOTAL 2.0 (*) TOTAL PROTEIN 8.3 (*) eGFR >90.0 LIPASE - Abnormal LIPASE 3,563 (*) HCG QUANTITATIVE BLOOD HCG QUANTITATIVE <2 Narrative: Values in should double every 2 to 3 days for the first 6 weeks. Elevated concentrations of human chorionic gonadotropin (hCG) measured in the first trimester of are observed in normal , but may serve as an indication of chorionic carcinoma, hydatiform mole, or multiplepregnancy. Decreasing hCG concentrations indicate threatened or missed , recent terminationof , ectopic , gestosis or intrauterine . Penny- and postmenopausal females may have detectable hCG concentrations (< or = to 14 mIU/mL) due to pituitary production of hCG. Serum follicle-stimulating hormone measurement may aid in ruling-out in this population. Cutoffs of greater than 20 to 45 mIU/mL have been suggested and are method dependent. False-elevations(called phantom human chorionic gonadotropin: hCG) may occur with patients who have human antianimal or heterophilic antibodies. Some specimens may not dilute linearly due to abnormal forms of hCG. Elevated hCG concentrations not associated with are found in patients with other diseases such as tumors of the germ cells, ovaries, bladder, pancreas, stomach, lungs, and liver. This test isnot intended to detect or monitor tumors or gestational trophoblastic disease. COMPLETE URINALYSIS WITH REFLEX TO CULTURE Narrative: The following orders were created for panel order Urinalysis Complete with reflex to Culture. Procedure Abnormality Status --------- ------ Complete Urinalysis[[id number]] In process Please view results for these tests on the individual orders. COMPLETE URINALYSIS All other labs were within normal range or not returned as of this dictation. EMERGENCY DEPARTMENT COURSE and DIFFERENTIAL DIAGNOSIS/MDM: Vitals: Vitals: 06/03/23 1918 BP: (!) 135/91 Pulse: 75 Resp: 19 Temp: (!) 35.7 C (96.3 F) TempSrc: Temporal SpO2: 96% Medications Administered in the ED: Medications metoclopramide (Reglan) injection 10 mg (10 mg IntraVENous Given 06/03/231955) sodium chloride 0.9 % bolus 1,000 mL (1,000 mL IntraVENous New Bag 06/03/231955) diatrizoate meglumine-sodium (Gastrografin) 66-10 % solution 30 mL (30 mL Oral Given 06/03/232020) iopamidol (Isovue-370) 76 % injection 75 mL (75 mL IntraVENous Given 06/03/232102) With concern for nausea vomiting and diarrhea x 2 days PROCEDURES: Unless otherwise noted below, none Procedures Differential Diagnosis Considerations: Gastroenteritis, electrolyte derangements, anemia, urinary tract infection, postoperative complication Sources of History: Patient ED Course: Vital signs on arrival normal and stable. Does have dry mucous membranes slight abdominal tenderness on the left side of her abdomen and will obtain a CT image with oral contrast for further evaluation. Will give her fluids, Reglan and reassess Reassessment: Patient's blood work resulted with elevated lipase at 3500 negative hCG level, electrolytes with elevated AST and ALT as well as mildly elevated bili. She does not appear obviously jaundiced althoughdid discuss with Dr. Sanches who is covering for Dr. Campbell. CT imaging did not show any acuteabnormalities although does want her transferred to [facility] emergency department for surgery evaluation and she is so recently postoperative from their service that they will be admitting her regardless of the complaint. Patient denies any new or worsening pain at this point in time although still fairly nauseated. Did consider transfer via ambulance and recommended this although patient preferred to go by private vehicle and do believe this is reasonable she has not had any sedating medications at this time and notified exiting urgency department provider Dr. Katia Hopkins who is accepting of patient. Consideration of Admission/Observation: Admission Independent Interpretation of Tests: Diagnostic Tests Considered but not Performed: Prescription Medications Considered but not Prescribed: Chronic Conditions Affecting Care: FINAL IMPRESSION 1. Acute pancreatitis, unspecified complication status, unspecified pancreatitis type 2. Nausea and vomiting, unspecified vomiting type DISPOSITION Transfer To [facility] 06/03/2023 09:08:38 PM PATIENT REFERRED TO: No follow-up provider specified. DISCHARGE MEDICATIONS: New Prescriptions No medications on file (Comment: Please note this report has been produced using speech recognition software and may contain errors related to that system including errors in grammar, punctuation, and spelling, as well as words and phrases that may be inappropriate. If there are any questions or concerns please feel freeto contact the dictating provider for clarification.) Artemio Colorado MD (electronically signed) Emergency Medicine Provider Acute [facility] Artemio Colorado MD 06/03/232118 * Nabeel Seymour PA-C - 06/03/2023 7:14 PM EDT Emergency Department Encounter [facility] EMERGENCY DEPT Patient: Anne Marie Peterson : 1995 Date of Evaluation: 06/03/2023 ED MARY Provider: Nabeel Seymour PA-C Patient seen independently within my scope of practice with an Emergency Medicine attending available for supervision. Chief Complaint Chief Complaint Patient presents with Vomiting RED DEVIL I was wearing a N95, Surgical mask for the entirety of this encounter. Anne Marie Peterson is a 27 y.o. female who presents to the emergency department for nausea and vomiting for 2 days. Patient has a history of gastric bypass surgery last month. Patient was transferred from [place] ED for surgery evaluation. No fevers or chills. Denies any abdominal pain. Limitations to history: None Outside historians: EMR Past History Past Medical History: Diagnosis Date Anemia Atrial fibrillation (HCC) 2 episodes Back pain COVID-19 vaccine series completed 10/2020 Daytime sleepiness SANTOS (dyspnea on exertion) Fatigue History of kidney stones History of UTI Incontinence Joint pain, knee PTSD (post-traumatic stress disorder) Sleep apnea, obstructive uses cpap Past Surgical History: Procedure Laterality Date COLONOSCOPY HERNIA REPAIR 1999 Dr. Memo Duke / Ernst Chavez [facility] - inguinal hernia LAP GASTRIC BYPASS/SANDRA-EN-Y (HISTORICAL) 05/10/2023 [facility] - Dr. Shannan CROCKETT,CHOLECYSTECTOMY (HISTORICAL) 2009 Dr. Memo Duke / Ernst Chavez [facility] UPPER GASTROINTESTINAL ENDOSCOPY Social History Socioeconomic History Marital status: Significant Other Tobacco Use Smoking status: Never Smokeless tobacco: Never Vaping Use Vaping Use: Never used Substance and Sexual Activity Alcohol use: Not Currently Drug use: Never Sexual activity: Yes Partners: Male control/protection: I.U.D. Social Determinants of Health Financial Resource Strain: Low Risk (05/19/2023) Overall Financial Resource Strain (CARDIA) Difficulty of Paying Living Expenses: Not hard at all Food Insecurity: No Food Insecurity (05/19/2023) Hunger Vital Sign Worried About Running Out of Food in the Last Year: Never true Ran Out of Food in the Last Year: Never true Transportation Needs: No Transportation Needs (05/19/2023) PRAPARE - Transportation Lack of Transportation (Medical): No Lack of Transportation (Non-Medical): No Physical Activity: Inactive (05/19/2023) Exercise Vital Sign Days of Exercise per Week: 0 days Minutes of Exercise per Session: 0 min Stress: No Stress Concern Present (05/19/2023) [employer] - Occupational Stress Questionnaire Feeling of Stress : Only a little Social Connections: Socially Isolated (05/19/2023) Social Connection and Isolation Panel [NHANES] Frequency of Communication with Friends and Family: More than three times a week Frequency of Social Gatherings with Friends and Family: More than three times a week Attends Mormonism Services: Never Active Member of Clubs or Organizations: Patient unable to answer Attends Club or Organization Meetings: Never Marital Status: Never Intimate Partner Violence: Not At Risk (05/19/2023) Humiliation, Afraid, Rape, and Kick questionnaire Fear of Current or Ex-Partner: No Emotionally Abused: No Physically Abused: No Sexually Abused: No Housing Stability: Low Risk (05/19/2023) Housing Stability Vital Sign Unable to Pay for Housing in the Last Year: No Number of Places Lived in the Last Year: 1 Unstable Housing in the Last Year: No Medications/Allergies Previous Medications CALCIUM CARBONATE (TUMS) 500 MG CHEWABLE TABLET Chew 500 mg 3 times daily. CYANOCOBALAMIN (VITAMIN B-12) [address] 1 Dose under the tongue daily. FERROUS SULFATE 325 (65 FE) MG TABLET Take 1 tablet (325 mg) by mouth 2 times daily. MAGNESIUM 30 MG TABLET Take 30 mg by mouth 2 times daily. METOPROLOL SUCCINATE XL (TOPROL-XL) 25 MG 24 HR TABLET Take 1 tablet (25 mg) by mouth daily. OMEPRAZOLE (PRILOSEC) [address] CAPSULE Take 1 capsule (20 mg) by mouth daily. Do not crush or chew. PEDIATRIC MULTIVITAMINS-IRON (FLINTSTONES PLUS IRON PO) Take 2 tablets by mouth daily. RESPIRATORY THERAPY SUPPLIES (CARETOUCH 2 CPAP HOSE PRODUCE SHIPPER) MISC 10 cm h20 VITAMIN D, CHOLECALCIFEROL, PO Take 4,000 Int'l Units by mouth daily. Allergies Allergen Reactions Nsaids S/P BARIATRIC SURGERY Physical Exam BP 134/89 Pulse 90 Temp 36.1 C (97 F) (Temporal) Resp 16 SpO2 96% Physical Exam GENERAL APPEARANCE: Awake and alert. Cooperative. HEENT: Normocephalic. Atraumatic. Sclera anicteric. Tolerates saliva. No trismus. NECK: Supple. Trachea midline. CARDIO: Normal rate. Radial pulses symmetrical and palpable LUNGS: Respirations unlabored. CTAB. ABDOMEN: Soft. Left-sided abdominal tenderness to palpation. No guarding. SKIN: Warm and dry. NEUROLOGICAL: No gross facial drooping. No obvious neurologic deficits. 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 Moves all 4 extremities spontaneously. SCREENINGS D Labs: Results for orders placed or performed during the hospital encounter of 06/03/23 CBC auto differential Result Value Ref Range Auto WBC 8.1 3.6 - 10.7 10*3/uL RBC 5.39 (H) 3.80 - 5.20 10*6/uL Hemoglobin 11.8 11.7 - 16.0 g/dL Hematocrit 39.4 35.0 - 47.0 % MCV 73.1 (L) 77.0 - 99.0 fL MCH 21.9 (L) 26.0 - 34.0 pg MCHC 29.9 (L) 30.5 - 36.0 % RDW 18.9 (H) 11.5 - 15.0 % Platelets 522 (H) 140 - 440 10*3/uL MPV 10.9 9.0 - 12.7 fL nRBC 0.0 0.0 - 2.0 /100 WBCs Neutrophils Relative 64.1 38.0 - 82.0 % Lymphocytes Relative 24.7 15.0 - 45.0 % Monocytes Relative 8.4 5.0 - 13.0 % Eosinophils Relative 1.7 0.0 - 6.0 % Basophils Relative 0.4 0.0 - 2.0 % Immature Grans % 0.7 0.0 - 2.0 % Neutrophils Absolute 5.2 1.8 - 7.5 10*3/uL Lymphocytes Absolute 2.0 1.0 - 4.3 10*3/uL Monocytes Absolute 0.7 0.0 - 0.9 10*3/uL Eosinophils Absolute 0.1 0.0 - 0.5 10*3/uL Basophils Absolute 0.0 0.0 - 0.2 10*3/uL Immature Grans Absolute 0.1 (H) <0.1 10*3/uL Comprehensive metabolic panel Result Value Ref Range SODIUM 139 135 - 145 mmol/L POTASSIUM 3.4 (L) 3.5 - 5.1 mmol/L CHLORIDE 104 98 - 107 mmol/L CARBON DIOXIDE 19 (L) 22 - 30 mmol/L ANION GAP 16 (H) 3 - 13 mmol/L UREA NITROGEN <2 (L) 7 - 17 mg/dL CREATININE 0.57 0.52 - 1.04 mg/dL GLUCOSE 103 (H) 70 - 100 mg/dL CALCIUM 8.9 8.4 - 10.4 mg/dL AST (SGOT) 106 (H) 15 - 46 U/L ALT 135 (H) 0 - 34 U/L ALKALINE PHOSPHATASE 65 38 - 126 U/L ALBUMIN 4.2 3.5 - 5.0 g/dL BILIRUBIN, TOTAL 2.0 (H) 0.2 - 1.3 mg/dL TOTAL PROTEIN 8.3 (H) 6.3 - 8.2 g/dL eGFR >90.0 >60.0 mL/min/1.73m*2 Lipase Result Value Ref Range LIPASE 3,563 (H) 23 - 300 U/L hCG, quantitative, Result Value Ref Range HCG QUANTITATIVE <2 Females <=5 mIU/mL Complete Urinalysis Result Value Ref Range Color, Urine Yellow Lt. Yellow Clarity, Urine Extra Turbid (A) Clear pH, Urine 6.0 5.0 - 8.0 pH Leukocytes, Urine 250 (A) Negative Krish/uL Nitrite, Urine Negative Negative Protein, Urine 100 (A) Negative mg/dL Glucose, Urine Normal Normal (<70) mg/dL Bilirubin, Urine 1 (A) Negative mg/dL Ketones, Urine >150 (A) Negative mg/dL Urobilinogen, Urine 8 (A) Normal (0-1) mg/dL Blood, Urine 0.5 (A) Negative mg/dL RBC, Urine 3-5 (A) 0 - 2 /HPF WBC, Urine 11-25 (A) 0 - 5 /HPF Squamous Epithelial, Urine 6-10 (A) 3 - 5 /HPF Bacteria, Urine Many (A) Negative /HPF Mucus, Urine Many (A) Negative /LPF Hyaline Casts, Urine 6-10 (A) Negative /LPF SPECIFIC GRAVITY OF URINE (NUMERIC) 1.020 1.005 - 1.030 Radiographs: CT abdomen pelvis w contrast Final Result 1. No acute process. Report Dictated on Electronically Signed By: Giorgio Sofia MD Electronically Signed Date/Time: 06/03/2023 9:12 PM EDT : EKG: All EKG's areinterpreted by the Emergency Department Physician in the absence of a binder coverstitch. see their note for interpretation of EKG. EMERGENCY DEPARTMENT COURSE and DIFFERENTIAL DIAGNOSIS/MDM: External Records Review: Reviewed workup at [facility]. Social Determinants of Health: none. Anne Marie Peterson is a 27 y.o. female who presented to the emergency department for left-sided abdominal pain and nausea with vomiting. Patient was transferred from [place] [facility] for general surgery evaluation. Workup started at [place] [facility]. Patient was given IV fluids and Reglan. CBC showed no leukocytosis. Lipase 3563. hCG negative. CMP showed AST/ALT elevated. CT ab/pelvis showed no acute process. Presentation consistent with acute pancreatitis. Consulted general surgery. General surgery evaluated the patient. General surgery will admit patient to their service for further management. Please see general surgery note for additional details. Final Diagnosis: 1. Acute pancreatitis, unspecified complication status, unspecified pancreatitis type 2. Nausea and vomiting, unspecified vomiting type Medications ondansetron (Zofran) injection 4 mg (has no administration in time range) metoclopramide (Reglan) injection 10 mg (10 mg IntraVENous Given 06/03/231955) sodium chloride 0.9 % bolus 1,000 mL (0 mL IntraVENous Stopped 06/03/232055) diatrizoate meglumine-sodium (Gastrografin) 66-10 % solution 30 mL (30 mL Oral Given 06/03/232020) iopamidol (Isovue-370) 76 % injection 75 mL (75 mL IntraVENous Given 06/03/232102) CONSULTS: None PROCEDURES: Unless otherwise noted below, none Procedures DISPOSITION/PLAN Observation 06/03/2023 11:09:17 PM PATIENT REFERRED TO: No follow-up provider specified. DISCHARGE MEDICATIONS: New Prescriptions No medications on file @[facility]([id number]:LAST:1)@ (Please note: Portions of this note were completed with a voice recognition program. Efforts were made to edit the dictations but occasionally words and phrases are mis-transcribed.) Form [id number] Nabeel Seymour PA-C [employer] Nabeel Seymour PA-C 06/04/23 0701 * Jolly Guajardo RN - 06/03/2023 7:14 PM EDT Pt presents to ED c/o vomiting x2 days. Pt had gastric bypass on 06/09 . Pt endorses some blood in vomit today. documented in this [place] [id number] History and physical note* Christy Lopez MD - 06/03/2023 11:00 PM EDT Department of General Surgery Surgical Service Surgery 4 Consult/History and Physical 06/04/2023 CHIEF COMPLAINT: Chief Complaint Patient presents with Vomiting Reason for Admission: Painless pancreatitis [K85.90] Acute pancreatitis, unspecified complication status, unspecified pancreatitis type [K85.90] Nausea and vomiting, unspecified vomiting type [R11.2] HISTORY OF PRESENT ILLNESS: Anne Marie Peterson is a 27 y.o. female with significant past medical history of a fib, PTSD who presents with nausea and vomiting. Patient reports approximately 2 days of nausea vomiting. Did have thin, light red emesis earlier today but subsequent episodes of emesis have been clear. She denies lightheadedness, dizziness, abdominal pain, change in bowel function. Abdominal surgical history significant for Sandra-en-Y gastric bypass on 05/10/23 as well as remote lap gerardo (2009). Patient was discharged after her recent Sandra on Lovenox given increased risk for VTE. Represented approximately week after surgery with abdominal pain which was concerning for hemoperitoneum; she was admitted at that time for serial abdominal exams and serial hemoglobins. She was discharged 2 days later off Lovenox. She denies any abdominal pain since that time. She remains off anyanticoagulation or antiplatelet medications. Work up revealed patient to be afebrile and hemodynamically stable. Basic labs including cbc, cmp, lipase demonstrate elevated lipase of 3563. Elevation in transaminases. AST 106, ALT 135, T. bili 2.0. A CT of the abdomen and pelvis was obtained which demonstrated no acute abnormalities. Past Medical History: Diagnosis Date Anemia Atrial fibrillation (HCC) 2 episodes Back pain COVID-19 vaccine series completed 10/2020 Daytime sleepiness SANTOS (dyspnea on exertion) Fatigue History of kidney stones History of UTI Incontinence Joint pain, knee PTSD (post-traumatic stress disorder) Sleep apnea, obstructive uses cpap Past Surgical History: Procedure Laterality Date COLONOSCOPY HERNIA REPAIR 1999 Dr. Memo [facility] / [facility] - inguinal hernia LAP GASTRIC BYPASS/SANDRA-EN-Y (HISTORICAL) 05/10/2023 [facility] - Dr. Campbell LAP,CHOLECYSTECTOMY (HISTORICAL) 2009 Dr. Memo [facility] UPPER GASTROINTESTINAL ENDOSCOPY Medications Prior toAdmission: No current facility-administered medications on file prior to encounter. Current Outpatient Medications on File Prior to Encounter Medication Sig calcium carbonate (Tums) 500 MG chewable tablet Chew 500 mg 3 times daily. Cyanocobalamin (Vitamin B-12) [address] 1 Dose under the tongue daily. ferrous sulfate 325 (65 Fe) MG tablet Take 1 tablet (325 mg) by mouth 2 times daily. magnesium 30 MG tablet Take 30 mg by mouth 2 times daily. metoprolol succinate XL (Toprol-XL) 25 MG 24 hr tablet Take 1 tablet (25 mg) by mouth daily. (Patient taking differently: Take 50 mg by mouth daily.) [] nystatin (Mycostatin) 881669 UNIT/ML suspension Swish and swallow 5 mL (500,000 Units) 3 times daily for 10 days. omeprazole (PriLOSEC) [address] capsule Take 1 capsule (20 mg) by mouth daily. Do not crush or chew. Pediatric Multivitamins-Iron (FLINTSTONES PLUS IRON PO) Take 2 tablets by mouth daily. Respiratory Therapy Supplies (CareTouch 2 CPAP Hose Dominatrix) misc 10 cm h20 VITAMIN D, CHOLECALCIFEROL, PO Take 4,000 Int'l Units by mouth daily. Allergies: Nsaids Social History Socioeconomic History Marital status: Significant Other Tobacco Use Smoking status: Never Smokeless tobacco: Never Vaping Use Vaping Use: Never used Substance and Sexual Activity Alcohol use: Not Currently Drug use: Never Sexual activity: Yes Partners: Male control/protection: I.U.D. Social Determinants of Health Financial Resource Strain: Low Risk (05/19/2023) Overall Financial Resource Strain (CARDIA) Difficulty of Paying Living Expenses: Not hard at all Food Insecurity: No Food Insecurity (05/19/2023) Hunger Vital Sign Worried About Running Out of Food in the Last Year: Never true Ran Out of Food in the Last Year: Never true Transportation Needs: No Transportation Needs (05/19/2023) PRAPARE - Transportation Lack of Transportation (Medical): No Lack of Transportation (Non-Medical): No Physical Activity: Inactive (05/19/2023) Exercise Vital Sign Days of Exercise per Week: 0 days Minutes of Exercise per Session: 0 min Stress: No Stress Concern Present (05/19/2023) [employer] - Occupational Stress Questionnaire Feeling of Stress : Only a little Social Connections: Socially Isolated (05/19/2023) Social Connection and Isolation Panel [NHANES] Frequency of Communication with Friends and Family: More than three times a week Frequency of Social Gatherings with Friends and Family: More than three times a week Attends [employer]ism Services: Never Active Member of Clubs or Organizations: Patient unable to answer Attends Club or Organization Meetings: Never Marital Status: Never Intimate Partner Violence: Not At Risk (06/04/2023) Humiliation, Afraid, Rape, and Kick questionnaire Fear of Current or Ex-Partner: No Emotionally Abused: No Physically Abused: No Sexually Abused: No Housing Stability: Low Risk (05/19/2023) Housing Stability Vital Sign Unable to Pay for Housing in the Last Year: No Number of Places Lived in the Last Year: 1 Unstable Housing in the Last Year: No Family History Problem Relation Name Age of Onset Cancer Mother Hypertension Mother Obesity Mother Heart disease Father Obesity Father Cancer Maternal Grandmother Heart disease Maternal Grandmother Stroke Maternal Grandfather Hypertension Maternal Grandfather Heart disease Maternal Grandfather Diabetes Maternal Grandfather Obesity Maternal Grandfather Anesthesia problems Maternal Grandfather REVIEW OF SYSTEMS: Review of Systems Constitutional: Negative for activity change, chills, diaphoresis, fatigue and fever. HENT: Negative for trouble swallowing and voice change. Eyes: Negative for photophobia and visual disturbance. Respiratory: Negative for cough, choking, chest tightness and shortness of breath. Cardiovascular: Negative for chest pain and palpitations. Gastrointestinal: Positive for nausea and vomiting. Negative for abdominal distention, abdominal pain, constipation and diarrhea. Endocrine: Negative for polydipsia, polyphagia and polyuria. Musculoskeletal: Negative for back pain and gait problem. Skin: Negative for color change, pallor and wound. Neurological: Negative for dizziness, light-headedness, numbness and headaches. Hematological: Negative for adenopathy. Does not bruise/bleed easily. PHYSICAL EXAM: Vitals: 06/04/23 0258 BP: 108/57 Pulse: 76 Resp: 16 Temp: 36.8 C (98.2 F) SpO2: 97% No intake/output data recorded. Physical Exam Vitals reviewed. Constitutional: General: She is not in acute distress. Appearance: She is not ill-appearing. HENT: Head: Normocephalic and atraumatic. Right Ear: External ear normal. Left Ear: External ear normal. Nose: No congestion. Mouth/Throat: Mouth: Mucous membranes are moist. Pharynx: Oropharynx is clear. Eyes: General: No scleral icterus. Right eye: No discharge. Left eye: No discharge. Pupils: Pupils are equal, round, and reactive to light. Cardiovascular: Rate and Rhythm: Normal rate and regular rhythm. Pulses: Normal pulses. Pulmonary: Effort: Pulmonary effort is normal. No respiratory distress. Breath sounds: No stridor. Chest: Chest wall: No tenderness. Abdominal: General: Abdomen is flat. There is no distension. Palpations: Abdomen is soft. There is no mass. Tenderness: There is no abdominal tenderness. There is no guarding or rebound. Hernia: No hernia is present. Comments: Protuberant. Incisions cdi. Skin: General: Skin is warm and dry. Capillary Refill: Capillary refill takes less than 2 seconds. Neurological: General: No focal deficit present. Mental Status: She is alert and oriented to person, place, and time. Psychiatric: Mood and Affect: Mood normal. Behavior: Behavior normal. DATA: CBC: Lab Results Component Value Date WBC 8.1 06/04/2023 RBC 4.71 06/04/2023 HGB 10.3 (L) 06/04/2023 HCT 34.2 (L) 06/04/2023 MCV 72.6 (L) 06/04/2023 MCH 21.9 (L) 06/04/2023 MCHC 30.1 (L) 06/04/2023 RDW 18.5 (H) 06/04/2023 PLT 414 06/04/2023 MPV 10.6 06/04/2023 BMP: Lab Results Component Value Date NA 138 06/04/2023 K 3.2 (L) 06/04/2023 CL 106 06/04/2023 CO2 18 (L) 06/04/2023 BUN <2 (L) 06/04/2023 CREATININE 0.55 06/04/2023 CALCIUM 8.4 06/04/2023 GLUCOSE 99 06/04/2023 Hepatic Function Panel: Lab Results Component Value Date ALKPHOS 55 06/04/2023 ALT 127 (H) 06/04/2023 AST 111 (H) 06/04/2023 PROT 7.3 06/04/2023 BILITOT 1.8 (H) 06/04/2023 PT/INR: No results found for: PROTIME, INR Troponin: No results found for: TROPONINI LIPASE: Lab Results Component Value Date LIPASE 3,319 (H) 06/04/2023 IMAGING: All relevant imaging reviewed by surgery team. CT abdomen pelvis w contrast Result Date: 06/03/2023 Patient Name: ANNE MARIE PETERSON : 1995 Exam Date/Time: 06/03/2023 21:03 Procedure: CT ABDOMEN PELVIS W CONTRAST Ordering Provider: COLORADO JAY Reason For Exam: LLQ abdominal pain EXAMINATION: CT ABDOMEN PELVIS W CONTRAST CLINICAL HISTORY: Left lower quadrant abdominal pain COMPARISON: 05/19/2023 TECHNIQUE: Contiguous axial images wereobtained through the abdomen and pelvis from the level of the diaphragmatic domes through the pubicsymphysis following bolus administration of intravenous contrast. Dose reduction was employed with automated exposure control. FINDINGS: Included images of the lower thorax: No focal lung consolidation or pleural effusion. Hepatobiliary: The liver parenchyma has low attenuation consistent with hepatic steatosis. No focal suspicious hepatic lesion is present. There is no biliary dilatation. The gallbladder is surgically absent. Pancreas: Unremarkable Spleen: Unremarkable Adrenal Glands: Unremarkable Kidneys and ureters: No calculi or hydroureteronephrosis. Abdominal vasculature: Unremarkable GI tract: There is no evidence for obstruction. The patient is status post Sandra-en-Y gastric bypass. There is no evidence for an internal hernia. The appendix is within normal limits. Peritoneum and retroperitoneum: Trace fluid in the lesser sac. Otherwise no free air or free fluid. Lymph Nodes: No abdominal lymphadenopathy is evident. Pelvis: An IUD is in good position in the uterus. The ovaries are normal in size. No pelvic mass. Nondistended urinary bladder. Visualized musculoskeletal structures: No acute fracture or destructive osseous lesion is identified. 1. No acute process. Report Dictated on Electronically Signed By: MD Yesica Electronically Signed Date/Time: 06/03/2023 9:12 PM EDT ASSESSMENT AND PLAN: This is a 27 y.o. female with concern for pancreatitis. N/V and significantly elevated lipase, but no abdominal pain/tenderness and normal imaging findings which is unusual. -Admit to general surgery -NPO, mIVF -Serial abdominal exams -Banana bag -AM CBC, CMP, lipase -DVT ppx: SCDs Discussed with , integration engineer for Dr Campbell Disclaimers: INFORMED CONSENT: The nature and purpose of the proposed treatment and/or procedure have been discussed. The risks and benefits of the proposed treatment or procedures have been reviewed. Alternatives have been reviewed in addition to the risks and benefits of not receiving treatments or undergoingprocedures. Pursuant to this discussion, the patient agrees to undergo the proposed treatment or procedure. Captured images seen in this note are not a substitute for a comprehensive interpretation of the entire data set as reflected by the interpreting physician with regard to radiology, echocardiography,and other diagnostic images. This note may have been dictated using Emergency CallWorks Practice Edition 2.6 and/or Personalis Voice Recognition Feature. The document was proofread; however, unrecognized voice recognition sheet metal roofer errors may be present. -2 Department of General Surgery #[id number] Associated attestation - Memo Campbell MD - 06/04/2023 7:06 PM EDT Images from the original note were not included. [facility] - Surgery [facility] Physicians Surgery Patient Name: Anne Marie Peterson Date: 06/04/23 Doing okay, mother at bedside. CT reviewed, pancreas looks normal however chemically, elevated lipase and labs consistent with pancreatitis. History of cholecystectomy in the past. No evidence of biliary dilation. BP 109/76 (BP Location: Left arm, Patient Position: Sitting) Pulse 67 Temp 36.8 C (98.2 F) (Temporal) Resp 17 SpO2 96% CBC: Recent Labs 06/03/23194706/04/23 0225 WBC 8.1 8.1 HGB 11.8 10.3* HCT 39.4 34.2* PLT 522* 414 BMP: Recent Labs 06/03/23194706/04/23224 NA 139 138 K 3.4* 3.2* CL 104 106 CO2 19* 18* BUN <2* <2* CREATININE 0.57 0.55 GLUCOSE 103* 99 Hepatic: Recent Labs 06/03/23194706/04/23224 ALKPHOS 65 55 ALT 135* 127* AST 106* 111* PROT 8.3* 7.3 BILITOT 2.0* 1.8* BILIDIR -- 0.0 Abdomen: Soft, approp. tender, nondistended. Plan: Pancreatitis, postop after gastric bypass Continue IV fluid support, clear liquid diet Monitor labs Pain management VTE prophylaxis I personally supervised my Resident/Surgical Fellow in the evaluation and management of Anne Marie Peterson in the development of a treatment plan for this patient. I personally interviewed the patient and performed an individual physical examination. In addition, I discussed the patient's condition and treatment options with them. I have also reviewed and agree with the past medical, family and social history and care plan unless otherwise noted. All of the patient's questions were answered. [id number] History and physical note* Christy Lopez MD - 06/03/2023 11:00 PM EDT Department of General Surgery Surgical Service Surgery 4 Consult/History and Physical 06/04/2023 CHIEF COMPLAINT: Chief Complaint Patient presents with Vomiting Reason for Admission: Painless pancreatitis [K85.90] Acute pancreatitis, unspecified complication status, unspecified pancreatitis type [K85.90] Nausea and vomiting, unspecified vomiting type [R11.2] HISTORY OF PRESENT ILLNESS: Anne Marie Peterson is a 27 y.o. female with significant past medical history of a fib, PTSD who presents with nausea and vomiting. Patient reports approximately 2 days of nausea vomiting. Did have thin, light red emesis earlier today but subsequent episodes of emesis have been clear. She denies lightheadedness, dizziness, abdominal pain, change in bowel function. Abdominal surgical history significant for Sandra-en-Y gastric bypass on 05/10/23 as well as remote lap gerardo (2009). Patient was discharged after her recent Sandra on Lovenox given increased risk for VTE. Represented approximately week after surgery with abdominal pain which was concerning for hemoperitoneum; she was admitted at that time for serial abdominal exams and serial hemoglobins. She was discharged 2 days later off Lovenox. She denies any abdominal pain since that time. She remains off anyanticoagulation or antiplatelet medications. Work up revealed patient to be afebrile and hemodynamically stable. Basic labs including cbc, cmp, lipase demonstrate elevated lipase of 3563. Elevation in transaminases. AST 106, ALT 135, T. bili 2.0. A CT of the abdomen and pelvis was obtained which demonstrated no acute abnormalities. Past Medical History: Diagnosis Date Anemia Atrial fibrillation (HCC) 2 episodes Back pain COVID-19 vaccine series completed 10/2020 Daytime sleepiness SANTOS (dyspnea on exertion) Fatigue History of kidney stones History of UTI Incontinence Joint pain, knee PTSD (post-traumatic stress disorder) Sleep apnea, obstructive uses cpap Past Surgical History: Procedure Laterality Date COLONOSCOPY [facility]ERN[facility] LAP GASTRIC BYPASS/SANDRA-EN-Y (HISTORICAL) 05/10/2023 [facility] - Dr. Campbell LAP,CHOLECYSTECTOMY (HISTORICAL) 2009 Dr. Memo [facility] / [facility] UPPER GASTROINTESTINAL ENDOSCOPY Medications Prior toAdmission: No current facility-administered medications on file prior to encounter. Current Outpatient Medications on File Prior to Encounter Medication Sig calcium carbonate (Tums) 500 MG chewable tablet Chew 500 mg 3 times daily. Cyanocobalamin (Vitamin B-12) [address] 1 Dose under the tongue daily. ferrous sulfate 325 (65 Fe) MG tablet Take 1 tablet (325 mg) by mouth 2 times daily. magnesium 30 MG tablet Take 30 mg by mouth 2 times daily. metoprolol succinate XL (Toprol-XL) 25 MG 24 hr tablet Take 1 tablet (25 mg) by mouth daily. (Patient taking differently: Take 50 mg by mouth daily.) [] nystatin (Mycostatin) 632681 UNIT/ML suspension Swish and swallow 5 mL (500,000 Units) 3 times daily for 10 days. omeprazole (PriLOSEC) [address] capsule Take 1 capsule (20 mg) by mouth daily. Do not crush or chew. Pediatric Multivitamins-Iron (FLINTSTONES PLUS IRON PO) Take 2 tablets by mouth daily. Respiratory Therapy Supplies (CareTouch 2 CPAP Hose Dominatrix) misc 10 cm h20 VITAMIN D, CHOLECALCIFEROL, PO Take 4,000 Int'l Units by mouth daily. Allergies: Nsaids Social History Socioeconomic History Marital status: Significant Other Tobacco Use Smoking status: Never Smokeless tobacco: Never Vaping Use Vaping Use: Never used Substance and Sexual Activity Alcohol use: Not Currently Drug use: Never Sexual activity: Yes Partners: Male control/protection: I.U.D. Social Determinants of Health Financial Resource Strain: Low Risk (05/19/2023) Overall Financial Resource Strain (CARDIA) Difficulty of Paying Living Expenses: Not hard at all Food Insecurity: No Food Insecurity (05/19/2023) Hunger Vital Sign Worried About Running Out of Food in the Last Year: Never true Ran Out of Food in the Last Year: Never true Transportation Needs: No Transportation Needs (05/19/2023) PRAPARE - Transportation Lack of Transportation (Medical): No Lack of Transportation (Non-Medical): No Physical Activity: Inactive (05/19/2023) Exercise Vital Sign Days of Exercise per Week: 0 days Minutes of Exercise per Session: 0 min Stress: No Stress Concern Present (05/19/2023) [employer] - Occupational Stress Questionnaire Feeling of Stress : Only a little Social Connections: Socially Isolated (05/19/2023) Social Connection and Isolation Panel [NHANES] Frequency of Communication with Friends and Family: More than three times a week Frequency of Social Gatherings with Friends and Family: More than three times a week Attends [employer]ism Services: Never Active Member of Clubs or Organizations: Patient unable to answer Attends Club or Organization Meetings: Never Marital Status: Never Intimate Partner Violence: Not At Risk (06/04/2023) Humiliation, Afraid, Rape, and Kick questionnaire Fear of Current or Ex-Partner: No Emotionally Abused: No Physically Abused: No Sexually Abused: No Housing Stability: Low Risk (05/19/2023) Housing Stability Vital Sign Unable to Pay for Housing in the Last Year: No Number of Places Lived in the Last Year: 1 Unstable Housing in the Last Year: No Family History Problem Relation Name Age of Onset Cancer Mother Hypertension Mother Obesity Mother Heart disease Father Obesity Father Cancer Maternal Grandmother Heart disease Maternal Grandmother Stroke Maternal Grandfather Hypertension Maternal Grandfather Heart disease Maternal Grandfather Diabetes Maternal Grandfather Obesity Maternal Grandfather Anesthesia problems Maternal Grandfather REVIEW OF SYSTEMS: Review of Systems Constitutional: Negative for activity change, chills, diaphoresis, fatigue and fever. HENT: Negative for trouble swallowing and voice change. Eyes: Negative for photophobia and visual disturbance. Respiratory: Negative for cough, choking, chest tightness and shortness of breath. Cardiovascular: Negative for chest pain and palpitations. Gastrointestinal: Positive for nausea and vomiting. Negative for abdominal distention, abdominal pain, constipation and diarrhea. Endocrine: Negative for polydipsia, polyphagia and polyuria. Musculoskeletal: Negative for back pain and gait problem. Skin: Negative for color change, pallor and wound. Neurological: Negative for dizziness, light-headedness, numbness and headaches. Hematological: Negative for adenopathy. Does not bruise/bleed easily. PHYSICAL EXAM: Vitals: 06/04/23 0258 BP: 108/57 Pulse: 76 Resp: 16 Temp: 36.8 C (98.2 F) SpO2: 97% No intake/output data recorded. Physical Exam Vitals reviewed. Constitutional: General: She is not in acute distress. Appearance: She is not ill-appearing. HENT: Head: Normocephalic and atraumatic. Right Ear: External ear normal. Left Ear: External ear normal. Nose: No congestion. Mouth/Throat: Mouth: Mucous membranes are moist. Pharynx: Oropharynx is clear. Eyes: General: No scleral icterus. Right eye: No discharge. Left eye: No discharge. Pupils: Pupils are equal, round, and reactive to light. Cardiovascular: Rate and Rhythm: Normal rate and regular rhythm. Pulses: Normal pulses. Pulmonary: Effort: Pulmonary effort is normal. No respiratory distress. Breath sounds: No stridor. Chest: Chest wall: No tenderness. Abdominal: General: Abdomen is flat. There is no distension. Palpations: Abdomen is soft. There is no mass. Tenderness: There is no abdominal tenderness. There is no guarding or rebound. Hernia: No hernia is present. Comments: Protuberant. Incisions cdi. Skin: General: Skin is warm and dry. Capillary Refill: Capillary refill takes less than 2 seconds. Neurological: General: No focal deficit present. Mental Status: She is alert and oriented to person, place, and time. Psychiatric: Mood and Affect: Mood normal. Behavior: Behavior normal. DATA: CBC: Lab Results Component Value Date WBC 8.1 06/04/2023 RBC 4.71 06/04/2023 HGB 10.3 (L) 06/04/2023 HCT 34.2 (L) 06/04/2023 MCV 72.6 (L) 06/04/2023 MCH 21.9 (L) 06/04/2023 MCHC 30.1 (L) 06/04/2023 RDW 18.5 (H) 06/04/2023 PLT 414 06/04/2023 MPV 10.6 06/04/2023 BMP: Lab Results Component Value Date NA 138 06/04/2023 K 3.2 (L) 06/04/2023 CL 106 06/04/2023 CO2 18 (L) 06/04/2023 BUN <2 (L) 06/04/2023 CREATININE 0.55 06/04/2023 CALCIUM 8.4 06/04/2023 GLUCOSE 99 06/04/2023 Hepatic Function Panel: Lab Results Component Value Date ALKPHOS 55 06/04/2023 ALT 127 (H) 06/04/2023 AST 111 (H) 06/04/2023 PROT 7.3 06/04/2023 BILITOT 1.8 (H) 06/04/2023 PT/INR: No results found for: PROTIME, INR Troponin: No results found for: TROPONINI LIPASE: Lab Results Component Value Date LIPASE 3,319 (H) 06/04/2023 IMAGING: All relevant imaging reviewed by surgery team. CT abdomen pelvis w contrast Result Date: 06/03/2023 Patient Name: ANNE MARIE PETERSON : 1995 Exam Date/Time: 06/03/2023 21:03 Procedure: CT ABDOMEN PELVIS W CONTRAST Ordering Provider: COLORADO JAY Reason For Exam: LLQ abdominal pain EXAMINATION: CT ABDOMEN PELVIS W CONTRAST CLINICAL HISTORY: Left lower quadrant abdominal pain COMPARISON: 05/19/2023 TECHNIQUE: Contiguous axial images wereobtained through the abdomen and pelvis from the level of the diaphragmatic domes through the pubicsymphysis following bolus administration of intravenous contrast. Dose reduction was employed with automated exposure control. FINDINGS: Included images of the lower thorax: No focal lung consolidation or pleural effusion. Hepatobiliary: The liver parenchyma has low attenuation consistent with hepatic steatosis. No focal suspicious hepatic lesion is present. There is no biliary dilatation. The gallbladder is surgically absent. Pancreas: Unremarkable Spleen: Unremarkable Adrenal Glands: Unremarkable Kidneys and ureters: No calculi or hydroureteronephrosis. Abdominal vasculature: Unremarkable GI tract: There is no evidence for obstruction. The patient is status post Sandra-en-Y gastric bypass. There is no evidence for an internal hernia. The appendix is within normal limits. Peritoneum and retroperitoneum: Trace fluid in the lesser sac. Otherwise no free air or free fluid. Lymph Nodes: No abdominal lymphadenopathy is evident. Pelvis: An IUD is in good position in the uterus. The ovaries are normal in size. No pelvic mass. Nondistended urinary bladder. Visualized musculoskeletal structures: No acute fracture or destructive osseous lesion is identified. 1. No acute process. Report Dictated on Electronically Signed By: MD Yesica Electronically Signed Date/Time: 06/03/2023 9:12 PM EDT ASSESSMENT AND PLAN: This is a 27 y.o. female with concern for pancreatitis. N/V and significantly elevated lipase, but no abdominal pain/tenderness and normal imaging findings which is unusual. -Admit to general surgery -NPO, mIVF -Serial abdominal exams -Banana bag -AM CBC, CMP, lipase -DVT ppx: SCDs Discussed with , integration engineer for Dr Campbell Disclaimers: INFORMED CONSENT: The nature and purpose of the proposed treatment and/or procedure have been discussed. The risks and benefits of the proposed treatment or procedures have been reviewed. Alternatives have been reviewed in addition to the risks and benefits of not receiving treatments or undergoingprocedures. Pursuant to this discussion, the patient agrees to undergo the proposed treatment or procedure. Captured images seen in this note are not a substitute for a comprehensive interpretation of the entire data set as reflected by the interpreting physician with regard to radiology, echocardiography,and other diagnostic images. This note may have been dictated using Emergency CallWorks Practice Edition 2.6 and/or Personalis Voice Recognition Feature. The document was proofread; however, unrecognized voice recognition sheet metal roofer errors may be present. -2 Department of General Surgery #[id number] Associated attestation - Memo Campbell MD - 06/04/2023 7:06 PM EDT Images from the original note were not included. [facility] - Surgery [facility] Surgery Patient Name: Anne Marie Peterson Date: 06/04/23 Doing okay, mother at bedside. CT reviewed, pancreas looks normal however chemically, elevated lipase and labs consistent with pancreatitis. History of cholecystectomy in the past. No evidence of biliary dilation. BP 109/76 (BP Location: Left arm, Patient Position: Sitting) Pulse 67 Temp 36.8 C (98.2 F) (Temporal) Resp 17 SpO2 96% CBC: Recent Labs 06/03/23194706/04/23224 WBC 8.1 8.1 HGB 11.8 10.3* HCT 39.4 34.2* PLT 522* 414 BMP: Recent Labs 06/03/23194706/04/23224 NA 139 138 K 3.4* 3.2* CL 104 106 CO2 19* 18* BUN <2* <2* CREATININE 0.57 0.55 GLUCOSE 103* 99 Hepatic: Recent Labs 06/03/23194706/04/23224 ALKPHOS 65 55 ALT 135* 127* AST 106* 111* PROT 8.3* 7.3 BILITOT 2.0* 1.8* BILIDIR -- 0.0 Abdomen: Soft, approp. tender, nondistended. Plan: Pancreatitis, postop after gastric bypass Continue IV fluid support, clear liquid diet Monitor labs Pain management VTE prophylaxis I personally supervised my Resident/Surgical Fellow in the evaluation and management of Anne Marie Peterson in the development of a treatment plan for this patient. I personally interviewed the patient and performed an individual physical examination. In addition, I discussed the patient's condition and treatment options with them. I have also reviewed and agree with the past medical, family and social history and care plan unless otherwise noted. All of the patient's questions were answered. documented in this [place] [id number] [facility] Emergency department Note* Sebastian Gibbs RN - 06/03/2023 10:02 PM EDT Pt has even and equal chest rise. Pt A+Ox4. Nabeel BRISENO talking to patient at this time. Sebastian Gibbs RN 06/03/232201 [id number] Emergency department Note* Jolly Guajardo RN - 06/03/2023 9:19 PM EDT Pt transferring to [facility] by private car. Pt alright to leave IV in per Dr. Colorado. Jolly Guajardo RN 06/03/232119 [id number] Emergency department Triage note* Jolly Guajardo RN - 06/03/2023 7:14 PM EDT Pt presents to ED c/o vomiting x2 days. Pt had gastric bypass on 06/09 . Pt endorses some blood in vomit today. [id number] Physician Emergency department Note* Artemio Colorado MD - 06/03/2023 7:14 PM EDT EMERGENCY DEPARTMENT ENCOUNTER Pt Name: Anne Marie Peterson Birthdate 1995 Date of evaluation: 06/03/2023 ED Provider: Artemio Colorado MD CHIEF COMPLAINT Chief Complaint Patient presents with Vomiting HISTORY OF PRESENT ILLNESS I wore appropriate PPE for the entirety of this encounter. HPI Anne Marie Peterson is a 27 y.o. person who presents to the emergency department with concern for vomiting x 2 days. Has a recent gastric bypass surgery last month she developed hemoperitoneum after the procedure although was otherwise stable prior to discharge during her most recent hospitalization. States 2 days ago developed nausea and vomiting has had about 5 episodes today. She went to her surgeons office where they gave her 2 L of fluid although patient endorses still not being able to urinate. She did try Zofran that she had leftover from the surgery although still feeling fairly nauseated. She feels like her mouth is very dry endorses some slight left-sided abdominal pain although believes it is likely from throwing up so much. Hemoperitoneum was noted on the right side of her abdomendenies any pain associated with this. When she is able to urinate denies any pain or burning with this Nursing Notes were reviewed. Limitations to history: None Outside historians: None REVIEW OF SYSTEMS Review of Systems Gastrointestinal: Positive for abdominal pain, diarrhea, nausea and vomiting. PAST MEDICAL HISTORY Past Medical History: Diagnosis Date Anemia Atrial fibrillation (HCC) 2 episodes Back pain COVID-19 vaccine series completed 10/2020 Daytime sleepiness SANTOS (dyspnea on exertion) Fatigue History of kidney stones History of UTI Incontinence Joint pain, knee PTSD (post-traumatic stress disorder) Sleep apnea, obstructive uses cpap SURGICAL HISTORY Past Surgical History: Procedure Laterality Date COLONOSCOPY [facility] 1999 [facility] LAP GASTRIC BYPASS/SANDRA-EN-Y (HISTORICAL) 05/10/2023 [facility] - Dr. Campbell LAP,CHOLECYSTECTOMY (HISTORICAL) 2009 [facility]. [facility] UPPER GASTROINTESTINAL ENDOSCOPY CURRENT MEDICATIONS Previous Medications CALCIUM CARBONATE (TUMS) 500 MG CHEWABLE TABLET Chew 500 mg 3 times daily. CYANOCOBALAMIN (VITAMIN B-12) [address] 1 Dose under the tongue daily. FERROUS SULFATE 325 (65 FE) MG TABLET Take 1 tablet (325 mg) by mouth 2 times daily. MAGNESIUM 30 MG TABLET Take 30 mg by mouth 2 times daily. METOPROLOL SUCCINATE XL (TOPROL-XL) 25 MG 24 HR TABLET Take 1 tablet (25 mg) by mouth daily. OMEPRAZOLE (PRILOSEC) [address] CAPSULE Take 1 capsule (20 mg) by mouth daily. Do not crush or chew. PEDIATRIC MULTIVITAMINS-IRON (FLINTSTONES PLUS IRON PO) Take 2 tablets by mouth daily. RESPIRATORY THERAPY SUPPLIES (CARETOUCH 2 CPAP HOSE PRODUCE SHIPPER) MISC 10 cm h20 VITAMIN D, CHOLECALCIFEROL, PO Take 4,000 Int'l Units by mouth daily. ALLERGIES Nsaids FAMILY HISTORY Family History Problem Relation Name Age of Onset Cancer Mother Hypertension Mother Obesity Mother Heart disease Father Obesity Father Cancer Maternal Grandmother Heart disease Maternal Grandmother Stroke Maternal Grandfather Hypertension Maternal Grandfather Heart disease Maternal Grandfather Diabetes Maternal Grandfather Obesity Maternal Grandfather Anesthesia problems Maternal Grandfather SOCIAL HISTORY Social History Socioeconomic History Marital status: Significant Other Tobacco Use Smoking status: Never Smokeless tobacco: Never Vaping Use Vaping Use: Never used Substance and Sexual Activity Alcohol use: Not Currently Drug use: Never Sexual activity: Yes Partners: Male control/protection: I.U.D. Social Determinants of Health Financial Resource Strain: Low Risk (05/19/2023) Overall Financial Resource Strain (CARDIA) Difficulty of Paying Living Expenses: Not hard at all Food Insecurity: No Food Insecurity (05/19/2023) Hunger Vital Sign Worried About Running Out of Food in the Last Year: Never true Ran Out of Food in the Last Year: Never true Transportation Needs: No Transportation Needs (05/19/2023) PRAPARE - Transportation Lack of Transportation (Medical): No Lack of Transportation (Non-Medical): No Physical Activity: Inactive (05/19/2023) Exercise Vital Sign Days of Exercise per Week: 0 days Minutes of Exercise per Session: 0 min Stress: No Stress Concern Present (05/19/2023) [employer] Occupational Health - Occupational Stress Questionnaire Feeling of Stress : Only a little Social Connections: Socially Isolated (05/19/2023) Social Connection and Isolation Panel [NHANES] Frequency of Communication with Friends and Family: More than three times a week Frequency of Social Gatherings with Friends and Family: More than three times a week Attends Mormonism Services: Never Active Member of Clubs or Organizations: Patient unable to answer Attends Club or Organization Meetings: Never Marital Status: Never Intimate Partner Violence: Not At Risk (05/19/2023) Humiliation, Afraid, Rape, and Kick questionnaire Fear of Current or Ex-Partner: No Emotionally Abused: No Physically Abused: No Sexually Abused: No Housing Stability: Low Risk (05/19/2023) Housing Stability Vital Sign Unable to Pay for Housing in the Last Year: No Number of Places Lived in the Last Year: 1 Unstable Housing in the Last Year: No SCREENINGS PHYSICAL EXAM ED Triage Vitals [06/03/23 1918] Temp Heart Rate Resp BP (!) 35.7 C (96.3 F) 75 19 (!) 135/91 SpO2 Temp Source Heart Rate Source Patient Position 96 % Temporal Monitor -- BP Location FiO2 (%) -- -- Physical Exam Vitals and nursing note reviewed. Constitutional: General: She is not in acute distress. Appearance: She is well-developed. HENT: Head: Normocephalic and atraumatic. Mouth/Throat: Mouth: Mucous membranes are dry. Eyes: Conjunctiva/sclera: Conjunctivae normal. Cardiovascular: Rate and Rhythm: Normal rate and regular rhythm. Heart sounds: No murmur heard. Pulmonary: Effort: Pulmonary effort is normal. No respiratory distress. Breath sounds: Normal breath sounds. Abdominal: Palpations: Abdomen is soft. Tenderness: There is abdominal tenderness (LUQ and LLQ). Musculoskeletal: General: No swelling. Cervical back: Neck supple. Skin: General: Skin is warm and dry. Capillary Refill: Capillary refill takes less than 2 seconds. Neurological: Mental Status: She is alert. Psychiatric: Mood and Affect: Mood normal. DIAGNOSTIC RESULTS RADIOLOGY (Per Emergency Physician): Interpretation per the Radiologist below, if available at the time of this note: CT abdomen pelvis w contrast Final Result 1. No acute process. Report Dictated on Electronically Signed By: Giorgio Sofia MD Electronically Signed Date/Time: 06/03/2023 9:12 PM EDT EKG Interpretation: LABS: Labs Reviewed CBC WITH AUTO DIFFERENTIAL - Abnormal Result Value Auto WBC 8.1 RBC 5.39 (*) Hemoglobin 11.8 Hematocrit 39.4 MCV 73.1 (*) MCH 21.9 (*) MCHC 29.9 (*) RDW 18.9 (*) Platelets 522 (*) MPV 10.9 nRBC 0.0 Neutrophils Relative 64.1 Lymphocytes Relative 24.7 Monocytes Relative 8.4 Eosinophils Relative 1.7 Basophils Relative 0.4 Immature Grans % 0.7 Neutrophils Absolute 5.2 Lymphocytes Absolute 2.0 Monocytes Absolute 0.7 Eosinophils Absolute 0.1 Basophils Absolute 0.0 Immature Grans Absolute 0.1 (*) COMPREHENSIVE METABOLIC PANEL - Abnormal SODIUM 139 POTASSIUM 3.4 (*) CHLORIDE 104 CARBON DIOXIDE 19 (*) ANION GAP 16 (*) UREA NITROGEN <2 (*) CREATININE 0.57 GLUCOSE 103 (*) CALCIUM 8.9 AST (SGOT) 106 (*) ALT 135 (*) ALKALINE PHOSPHATASE 65 ALBUMIN 4.2 BILIRUBIN, TOTAL 2.0 (*) TOTAL PROTEIN 8.3 (*) eGFR >90.0 LIPASE - Abnormal LIPASE 3,563 (*) HCG QUANTITATIVE BLOOD HCG QUANTITATIVE <2 Narrative: Values in should double every 2 to 3 days for the first 6 weeks. Elevated concentrations of human chorionic gonadotropin (hCG) measured in the first trimester of are observed in normal , but may serve as an indication of chorionic carcinoma, hydatiform mole, or multiplepregnancy. Decreasing hCG concentrations indicate threatened or missed , recent terminationof , ectopic , gestosis or intrauterine . Penny- and postmenopausal females may have detectable hCG concentrations (< or = to 14 mIU/mL) due to pituitary production of hCG. Serum follicle-stimulating hormone measurement may aid in ruling-out in this population. Cutoffs of greater than 20 to 45 mIU/mL have been suggested and are method dependent. False-elevations(called phantom human chorionic gonadotropin: hCG) may occur with patients who have human antianimal or heterophilic antibodies. Some specimens may not dilute linearly due to abnormal forms of hCG. Elevated hCG concentrations not associated with are found in patients with other diseases such as tumors of the germ cells, ovaries, bladder, pancreas, stomach, lungs, and liver. This test isnot intended to detect or monitor tumors or gestational trophoblastic disease. COMPLETE URINALYSIS WITH REFLEX TO CULTURE Narrative: The following orders were created for panel order Urinalysis Complete with reflex to Culture. Procedure Abnormality Status --------- ------ Complete Urinalysis[[id number]] In process Please view results for these tests on the individual orders. COMPLETE URINALYSIS All other labs were within normal range or not returned as of this dictation. EMERGENCY DEPARTMENT COURSE and DIFFERENTIAL DIAGNOSIS/MDM: Vitals: Vitals: 06/03/23 1918 BP: (!) 135/91 Pulse: 75 Resp: 19 Temp: (!) 35.7 C (96.3 F) TempSrc: Temporal SpO2: 96% Medications Administered in the ED: Medications metoclopramide (Reglan) injection 10 mg (10 mg IntraVENous Given 06/03/231955) sodium chloride 0.9 % bolus 1,000 mL (1,000 mL IntraVENous New Bag 06/03/231955) diatrizoate meglumine-sodium (Gastrografin) 66-10 % solution 30 mL (30 mL Oral Given 06/03/232020) iopamidol (Isovue-370) 76 % injection 75 mL (75 mL IntraVENous Given 06/03/232102) With concern for nausea vomiting and diarrhea x 2 days PROCEDURES: Unless otherwise noted below, none Procedures Differential Diagnosis Considerations: Gastroenteritis, electrolyte derangements, anemia, urinary tract infection, postoperative complication Sources of History: Patient ED Course: Vital signs on arrival normal and stable. Does have dry mucous membranes slight abdominal tenderness on the left side of her abdomen and will obtain a CT image with oral contrast for further evaluation. Will give her fluids, Reglan and reassess Reassessment: Patient's blood work resulted with elevated lipase at 3500 negative hCG level, electrolytes with elevated AST and ALT as well as mildly elevated bili. She does not appear obviously jaundiced althoughdid discuss with Dr. Sanches who is covering for Dr. Campbell. CT imaging did not show any acuteabnormalities although does want her transferred to [facility] emergency department for surgery evaluation and she is so recently postoperative from their service that they will be admitting her regardless of the complaint. Patient denies any new or worsening pain at this point in time although still fairly nauseated. Did consider transfer via ambulance and recommended this although patient preferred to go by private vehicle and do believe this is reasonable she has not had any sedating medications at this time and notified exiting urgency department provider Dr. Katia Hopkins who is accepting of patient. Consideration of Admission/Observation: Admission Independent Interpretation of Tests: Diagnostic Tests Considered but not Performed: Prescription Medications Considered but not Prescribed: Chronic Conditions Affecting Care: FINAL IMPRESSION 1. Acute pancreatitis, unspecified complication status, unspecified pancreatitis type 2. Nausea and vomiting, unspecified vomiting type DISPOSITION Transfer To [facility] 06/03/2023 09:08:38 PM PATIENT REFERRED TO: No follow-up provider specified. DISCHARGE MEDICATIONS: New Prescriptions No medications on file (Comment: Please note this report has been produced using speech recognition software and may contain errors related to that system including errors in grammar, punctuation, and spelling, as well as words and phrases that may be inappropriate. If there are any questions or concerns please feel freeto contact the dictating provider for clarification.) Artemio Colorado MD (electronically signed) Emergency Medicine Provider [facility] Artemio Colorado MD 06/03/232118 [id number] Physician Emergency department Note* Nabeel Seymour PA-C - 06/03/2023 7:14 PM EDT Emergency Department Encounter [facility] EMERGENCY DEPT Patient: Anne Marie Peterson : 1995 Date of Evaluation: 06/03/2023 ED MARY Provider: Nabeel Seymour PA-C Patient seen independently within my scope of practice with an Emergency Medicine attending available for supervision. Chief Complaint Chief Complaint Patient presents with Vomiting RED DEVIL I was wearing a N95, Surgical mask for the entirety of this encounter. Anne Marie Peterson is a 27 y.o. female who presents to the emergency department for nausea and vomiting for 2 days. Patient has a history of gastric bypass surgery last month. Patient was transferred from [place] ED for surgery evaluation. No fevers or chills. Denies any abdominal pain. Limitations to history: None Outside historians: EMR Past History Past Medical History: Diagnosis Date Anemia Atrial fibrillation (HCC) 2 episodes Back pain COVID-19 vaccine series completed 10/2020 Daytime sleepiness SANTOS (dyspnea on exertion) Fatigue History of kidney stones History of UTI Incontinence Joint pain, knee PTSD (post-traumatic stress disorder) Sleep apnea, obstructive uses cpap Past Surgical History: Procedure Laterality Date COLONOSCOPY HERNIA REPAIR 1999 Dr. Memo Duke / [facility] - inguinal hernia LAP GASTRIC BYPASS/SANDRA-EN-Y (HISTORICAL) 05/10/2023 [facility] - Dr. Campbell LAP,CHOLECYSTECTOMY (HISTORICAL) 2009 Dr. Memo Duke / [facility] UPPER GASTROINTESTINAL ENDOSCOPY Social History Socioeconomic History Marital status: Significant Other Tobacco Use Smoking status: Never Smokeless tobacco: Never Vaping Use Vaping Use: Never used Substance and Sexual Activity Alcohol use: Not Currently Drug use: Never Sexual activity: Yes Partners: Male control/protection: I.U.D. Social Determinants of Health Financial Resource Strain: Low Risk (05/19/2023) Overall Financial Resource Strain (CARDIA) Difficulty of Paying Living Expenses: Not hard at all Food Insecurity: No Food Insecurity (05/19/2023) Hunger Vital Sign Worried About Running Out of Food in the Last Year: Never true Ran Out of Food in the Last Year: Never true Transportation Needs: No Transportation Needs (05/19/2023) PRAPARE - Transportation Lack of Transportation (Medical): No Lack of Transportation (Non-Medical): No Physical Activity: Inactive (05/19/2023) Exercise Vital Sign Days of Exercise per Week: 0 days Minutes of Exercise per Session: 0 min Stress: No Stress Concern Present (05/19/2023) [employer] Occupational Health - Occupational Stress Questionnaire Feeling of Stress : Only a little Social Connections: Socially Isolated (05/19/2023) Social Connection and Isolation Panel [NHANES] Frequency of Communication with Friends and Family: More than three times a week Frequency of Social Gatherings with Friends and Family: More than three times a week Attends Mormonism Services: Never Active Member of Clubs or Organizations: Patient unable to answer Attends Club or Organization Meetings: Never Marital Status: Never Intimate Partner Violence: Not At Risk (05/19/2023) Humiliation, Afraid, Rape, and Kick questionnaire Fear of Current or Ex-Partner: No Emotionally Abused: No Physically Abused: No Sexually Abused: No Housing Stability: Low Risk (05/19/2023) Housing Stability Vital Sign Unable to Pay for Housing in the Last Year: No Number of Places Lived in the Last Year: 1 Unstable Housing in the Last Year: No Medications/Allergies Previous Medications CALCIUM CARBONATE (TUMS) 500 MG CHEWABLE TABLET Chew 500 mg 3 times daily. CYANOCOBALAMIN (VITAMIN B-12) [address] 1 Dose under the tongue daily. FERROUS SULFATE 325 (65 FE) MG TABLET Take 1 tablet (325 mg) by mouth 2 times daily. MAGNESIUM 30 MG TABLET Take 30 mg by mouth 2 times daily. METOPROLOL SUCCINATE XL (TOPROL-XL) 25 MG 24 HR TABLET Take 1 tablet (25 mg) by mouth daily. OMEPRAZOLE (PRILOSEC) [address] CAPSULE Take 1 capsule (20 mg) by mouth daily. Do not crush or chew. PEDIATRIC MULTIVITAMINS-IRON (FLINTSTONES PLUS IRON PO) Take 2 tablets by mouth daily. RESPIRATORY THERAPY SUPPLIES (CARETOUCH 2 CPAP HOSE PRODUCE SHIPPER) MISC 10 cm h20 VITAMIN D, CHOLECALCIFEROL, PO Take 4,000 Int'l Units by mouth daily. Allergies Allergen Reactions Nsaids S/P BARIATRIC SURGERY Physical Exam BP 134/89 Pulse 90 Temp 36.1 C (97 F) (Temporal) Resp 16 SpO2 96% Physical Exam GENERAL APPEARANCE: Awake and alert. Cooperative. HEENT: Normocephalic. Atraumatic. Sclera anicteric. Tolerates saliva. No trismus. NECK: Supple. Trachea midline. CARDIO: Normal rate. Radial pulses symmetrical and palpable LUNGS: Respirations unlabored. CTAB. ABDOMEN: Soft. Left-sided abdominal tenderness to palpation. No guarding. SKIN: Warm and dry. NEUROLOGICAL: No gross facial drooping. No obvious neurologic deficits. 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 Moves all 4 extremities spontaneously. SCREENINGS D Labs: Results for orders placed or performed during the hospital encounter of 06/03/23 CBC auto differential Result Value Ref Range Auto WBC 8.1 3.6 - 10.7 10*3/uL RBC 5.39 (H) 3.80 - 5.20 10*6/uL Hemoglobin 11.8 11.7 - 16.0 g/dL Hematocrit 39.4 35.0 - 47.0 % MCV 73.1 (L) 77.0 - 99.0 fL MCH 21.9 (L) 26.0 - 34.0 pg MCHC 29.9 (L) 30.5 - 36.0 % RDW 18.9 (H) 11.5 - 15.0 % Platelets 522 (H) 140 - 440 10*3/uL MPV 10.9 9.0 - 12.7 fL nRBC 0.0 0.0 - 2.0 /100 WBCs Neutrophils Relative 64.1 38.0 - 82.0 % Lymphocytes Relative 24.7 15.0 - 45.0 % Monocytes Relative 8.4 5.0 - 13.0 % Eosinophils Relative 1.7 0.0 - 6.0 % Basophils Relative 0.4 0.0 - 2.0 % Immature Grans % 0.7 0.0 - 2.0 % Neutrophils Absolute 5.2 1.8 - 7.5 10*3/uL Lymphocytes Absolute 2.0 1.0 - 4.3 10*3/uL Monocytes Absolute 0.7 0.0 - 0.9 10*3/uL Eosinophils Absolute 0.1 0.0 - 0.5 10*3/uL Basophils Absolute 0.0 0.0 - 0.2 10*3/uL Immature Grans Absolute 0.1 (H) <0.1 10*3/uL Comprehensive metabolic panel Result Value Ref Range SODIUM 139 135 - 145 mmol/L POTASSIUM 3.4 (L) 3.5 - 5.1 mmol/L CHLORIDE 104 98 - 107 mmol/L CARBON DIOXIDE 19 (L) 22 - 30 mmol/L ANION GAP 16 (H) 3 - 13 mmol/L UREA NITROGEN <2 (L) 7 - 17 mg/dL CREATININE 0.57 0.52 - 1.04 mg/dL GLUCOSE 103 (H) 70 - 100 mg/dL CALCIUM 8.9 8.4 - 10.4 mg/dL AST (SGOT) 106 (H) 15 - 46 U/L ALT 135 (H) 0 - 34 U/L ALKALINE PHOSPHATASE 65 38 - 126 U/L ALBUMIN 4.2 3.5 - 5.0 g/dL BILIRUBIN, TOTAL 2.0 (H) 0.2 - 1.3 mg/dL TOTAL PROTEIN 8.3 (H) 6.3 - 8.2 g/dL eGFR >90.0 >60.0 mL/min/1.73m*2 Lipase Result Value Ref Range LIPASE 3,563 (H) 23 - 300 U/L hCG, quantitative, Result Value Ref Range HCG QUANTITATIVE <2 Females <=5 mIU/mL Complete Urinalysis Result Value Ref Range Color, Urine Yellow Lt. Yellow Clarity, Urine Extra Turbid (A) Clear pH, Urine 6.0 5.0 - 8.0 pH Leukocytes, Urine 250 (A) Negative Krish/uL Nitrite, Urine Negative Negative Protein, Urine 100 (A) Negative mg/dL Glucose, Urine Normal Normal (<70) mg/dL Bilirubin, Urine 1 (A) Negative mg/dL Ketones, Urine >150 (A) Negative mg/dL Urobilinogen, Urine 8 (A) Normal (0-1) mg/dL Blood, Urine 0.5 (A) Negative mg/dL RBC, Urine 3-5 (A) 0 - 2 /HPF WBC, Urine 11-25 (A) 0 - 5 /HPF Squamous Epithelial, Urine 6-10 (A) 3 - 5 /HPF Bacteria, Urine Many (A) Negative /HPF Mucus, Urine Many (A) Negative /LPF Hyaline Casts, Urine 6-10 (A) Negative /LPF SPECIFIC GRAVITY OF URINE (NUMERIC) 1.020 1.005 - 1.030 Radiographs: CT abdomen pelvis w contrast Final Result 1. No acute process. Report Dictated on Electronically Signed By: Giorgio Sofia MD Electronically Signed Date/Time: 06/03/2023 9:12 PM EDT : EKG: All EKG's areinterpreted by the Emergency Department Physician in the absence of a binder coverstitch. see their note for interpretation of EKG. EMERGENCY DEPARTMENT COURSE and DIFFERENTIAL DIAGNOSIS/MDM: External Records Review: Reviewed workup at [facility]. Social Determinants of Health: none. Anne Marie Peterson is a 27 y.o. female who presented to the emergency department for left-sided abdominal pain and nausea with vomiting. Patient was transferred from [facility] for general surgery evaluation. Workup started at [facility]. Patient was given IV fluids and Reglan. CBC showed no leukocytosis. Lipase 3563. hCG negative. CMP showed AST/ALT elevated. CT ab/pelvis showed no acute process. Presentation consistent with acute pancreatitis. Consulted general surgery. General surgery evaluated the patient. General surgery will admit patient to their service for further management. Please see general surgery note for additional details. Final Diagnosis: 1. Acute pancreatitis, unspecified complication status, unspecified pancreatitis type 2. Nausea and vomiting, unspecified vomiting type Medications ondansetron (Zofran) injection 4 mg (has no administration in time range) metoclopramide (Reglan) injection 10 mg (10 mg IntraVENous Given 06/03/231955) sodium chloride 0.9 % bolus 1,000 mL (0 mL IntraVENous Stopped 06/03/232055) diatrizoate meglumine-sodium (Gastrografin) 66-10 % solution 30 mL (30 mL Oral Given 06/03/232020) iopamidol (Isovue-370) 76 % injection 75 mL (75 mL IntraVENous Given 06/03/232102) CONSULTS: None PROCEDURES: Unless otherwise noted below, none Procedures DISPOSITION/PLAN Observation 06/03/2023 11:09:17 PM PATIENT REFERRED TO: No follow-up provider specified. DISCHARGE MEDICATIONS: New Prescriptions No medications on file @[facility]([id number]:LAST:1)@ (Please note: Portions of this note were completed with a voice recognition program. Efforts were made to edit the dictations but occasionally words and phrases are mis-transcribed.) Form [id number] Nabeel Seymour PA-C [facility] Care [facility] Nabeel Seymour PA-C 06/04/23 0701 Zoe Majeste Phone: [phone] 118-589904-11-2024 History of Present illness Narrative* SUZANNA Lyons - 06/03/2023 9:30 AM EDT Patient here for rehydration and received 2 L NaCl. She tolerated well and vitals stable. See brick layer notes for further documentation. documented in this [address]11-2024 History of Present illness Narrative* SUZANNA Lyons - 06/03/2023 9:30 AM EDT Patient here for rehydration and received 2 L NaCl. She tolerated well and vitals stable. See brick layer notes for further documentation. documented in this [address]11-2024 History of Present illness Narrative* Miley Moise PA-C - 06/03/2023 9:30 AM EDT Patient here for rehydration and received 2 L NaCl. She tolerated well and vitals stable. See brick layer notes for further documentation. documented in this [address]11-2024 NotePatient here for rehydration and received 2 L NaCl. She tolerated well and vitals stable. See brick layer notes for further documentation.[facility]04-04-2024 History of Present illness Narrative* Memo Campbell MD - 05/27/2023 8:25 AM EDT Images from the original note were not included. [facility] SUR[facility]ICAL PRO[facility] Patient: Anne Marie Peterson Date of : 1995 Service Date: 05/27/2023 HPI: Patient here today for 1 week post-weight loss surgery follow up HPI: She is feeling well. Denies nausea, vomiting, dysphagia, or any GERD Sx. Currently is on a PPI. Patient currently walking. Instructed no lifting heavier than 15lbs until [address] to start supplements. Vital signs are stable. Labs were not drawn. Physical Examination: BP (!) 141/87 Pulse (!) 111 Temp 36.4 C (97.6 F) Resp 16 Ht 5' 5.25 (1.657 m) Comment: BCC Wt (!) 372 lb 6.4 oz (169 kg) SpO2 97% BMI 61.50 kg/m General: This patient is awake, alert, and oriented, and is in no apparent distress. Respiratory: Non-labored breathing Abdomen: Obese, soft, non-tender, non-distended without masses/ No evidence of abdominal hernia / Incisions consistent with previous surgeries. Extremities: No cyanosis, clubbing or edema/ No calf tenderness/No restrictions of movement, is ambulatory without assistance. Skin: No rashes or lesions noted. Surgical site: is:clean, dry, intact, and nontender Drainage from surgical site: none Patient does not have a superficial incisional SSI Plan: Orders Placed This Encounter Procedures Zinc These orders are set for an approximate date - they can be drawn up to 3 months prior to the Expected Date on this Req. Please send results to: [address] [place] [address] - [phone] And if not done at a [facility], please send to: [facility] [place] - [address] [place] [address], [address] [facility], [address] Patient Name: Anne Marie Kemp/31/1996 Order Created by : Rosa Kohli Standing Status: Future Number of Occurrences: 1 Standing Expiration Date: 05/25/2024 Folate These orders are set for an approximate date - they can be drawn up to 3 months prior to the Expected Date on this Req. Please send results to: [facility] [address] [place] [id number] - [phone] And if not done at a [facility], please send to: [address], [address] Patient Name: Anne Marie Tran 1995 Order Created by : Rosa Kohli Standing Status: Future Number of Occurrences: 1 Standing Expiration Date: 05/25/2024 Iron These orders are set for an approximate date - they can be drawn up to 3 months prior to the Expected Date on this Req. Please send results to: [facility] [address] [place] [id number] - [phone] And if not done at a [facility], please send to: [address], [address] Patient Name: Anne Marie Tran 1995 Order Created by : Rosa Kohli Standing Status: Future Number of Occurrences: 1 Standing Expiration Date: 05/25/2024 Ferritin These orders are set for an approximate date - they can be drawn up to 3 months prior to the Expected Date on this Req. Please send results to: [facility] [address] [place] [phone] - [phone] And if not done at a [facility], please send to: [address], [address] Patient Name: Anne Marie Tran 1995 Order Created by : Rosa Kohli Standing Status: Future Number of Occurrences: 1 Standing Expiration Date: 05/25/2024 Magnesium These orders are set for an approximate date - they can be drawn up to 3 months prior to the Expected Date on this Req. Please send results to: [address] [facility] [place] [address] - [phone] And if not done at a [facility], please send to: [address], [address] Patient Name: Anne Marie Tran 1995 Order Created by : Rosa Kohli Standing Status: Future Number of Occurrences: 1 Standing Expiration Date: 05/25/2024 Vitamin B12 These orders are set for an approximate date - they can be drawn up to 3 months prior to the Expected Date on this Req. Please send results to: [address] [place] [address] - [phone] And if not done at a [facility], please send to: [address], [address] Patient Name: Anne Marie Tran 1995 Order Created by : Rosa Kohli Standing Status: Future Number of Occurrences: 1 Standing Expiration Date: 05/25/2024 Comprehensive metabolic panel These orders are set for an approximate date - they can be drawn up to 3 months prior to the Expected Date on this Req. Please send results to: [address] [place] [address] - [phone] And if not done at a [facility], please send to: [address], [address] Patient Name: Anne Marie Tran 1995 Order Created by : Rosa Kohli Standing Status: Future Number of Occurrences: 1 Standing Expiration Date: 05/25/2024 CBC These orders are set for an approximate date - they can be drawn up to 3 months prior to the Expected Date on this Req. Please send results to: [address] [place] [address] - [phone] And if not done at a [facility], please send to: [facility] - [address] [place] [address], [address] - [place], [address] Patient Name: Anne Marie Peterson - 1995 Order Created by : Rosa Kohli Standing Status: Future Number of Occurrences: 1 Standing Expiration Date: 05/25/2024 Medications ordered during this encounter: Outpatient Encounter Medications as of 05/27/2023 Medication Sig Dispense Refill metoprolol succinate XL (Toprol-XL) 25 MG 24 hr tablet Take 1 tablet (25 mg) by mouth daily. (Patient taking differently: Take 50 mg by mouth daily.) 90 tablet 3 nystatin (Mycostatin) 842857 UNIT/ML suspension Swish and swallow 5 mL (500,000 Units) 3 times daily for 10 days. 150 mL 0 omeprazole (PriLOSEC) [address] capsule Take 1 capsule (20 mg) by mouth daily. Do not crush or chew.90 capsule 1 Pediatric Multivitamins-Iron (FLINTSTONES PLUS IRON PO) Take by mouth. Respiratory Therapy Supplies (CareTouch 2 CPAP Hose Dominatrix) misc 10 cm h20 Cyanocobalamin (Vitamin B-12) [address] 1 Dose under the tongue daily. ferrous sulfate 325 (65 Fe) MG tablet Take 1 tablet (325 mg) by mouth 2 times daily. (Patient not taking: Reported on 05/10/2023) 30 tablet 3 magnesium 30 MG tablet Take 30 mg by mouth 2 times daily. VITAMIN D, CHOLECALCIFEROL, PO Take by mouth daily. [DISCONTINUED] colestipol (Colestid) 1 g tablet Take 1 g by mouth Daily as needed. [DISCONTINUED] enoxaparin (Lovenox) 60 MG/0.6ML solution prefilled syringe Inject 0.6 mL (60 mg) under the skin in the morning and 0.6 mL (60 mg) in the evening. Do all this for 14 days. Inject 0.6 mLs into skin 2 times daily for 14 days.. 28 each 0 [DISCONTINUED] ondansetron (Zofran) 4 MG tablet Take 1 tablet (4 mg) by mouth every 8 hours as needed for nausea or vomiting for up to 5 days. 15 tablet 0 [DISCONTINUED] oxyCODONE-acetaminophen (Percocet) 5-325 MG tablet Take 1 tablet by mouth every 6 hours as needed for severe pain (7-10) for up to 5 days. 20 tablet 0 [DISCONTINUED] oxyCODONE-acetaminophen (Percocet) 5-325 MG tablet Take 1 tablet by mouth every 8 hours as needed for severe pain (7-10) for up to 3 days. (Patient not taking: Reported on 05/27/2023) 9 tablet 0 No facility-administered encounter medications on file as of 05/27/2023. 1). Oral Thrush: positive, Rx: 5ml Nystatin swish and spit every 8 hours x 10days (using since hospital d/c) 2). Liver Bx: Final Diagnosis LIVER, WEDGE BIOPSY: - MODERATE TO SEVERE STEATOSIS (GRADE 2-3) Comment: Sections demonstrate an intact liver architecture with moderate to severe macrovesicular steatosis occupying approximately 60-70% of the liver volume. There is no evidence of ballooning degeneration, lobular activity, or Miley's hyaline. The portal tracts contain all normal structures without any significant inflammatory infiltrate. Special stains (iron and trichome) are negative for increased iron storage and fibrosis, respectively. Refer to GI : No 3). Follow up at 1 month office visit with standard labs 4). Patient to see PCP for follow up regarding further management of DM and HTN medications. 5). Continue PPI until 6 month office visit 6). Advance to Pureed diet, RD discussed at office visit 7). Psych concerns: No 8). No lifting >15lbs until 1 month office visit. 9). If patient is a woman of childrearing age- 18-50. We discussed the importance of contraception during the first 12-18 months post op, and we discussed that fertility will increase following the procedure. Advised patient to discuss with her OBGYN regarding contraception. Patient counseled with good understanding verbalized. 10). Weight loss: Post-op Weight Metrics: %EBWL: % EBWL: 11% Weight Change Since Last Visit: Weight Change: -18.8 lbs Weight Change from Highest Pre-op Weight: Total Weight Change: -30.6 lbs Current Medications: Patient's Medications New Prescriptions No medications on file Previous Medications CYANOCOBALAMIN (VITAMIN B-12) [address] 1 Dose under the tongue daily. FERROUS SULFATE 325 (65 FE) MG TABLET Take 1 tablet (325 mg) by mouth 2 times daily. MAGNESIUM 30 MG TABLET Take 30 mg by mouth 2 times daily. METOPROLOL SUCCINATE XL (TOPROL-XL) 25 MG 24 HR TABLET Take 1 tablet (25 mg) by mouth daily. NYSTATIN (MYCOSTATIN) 115480 UNIT/ML SUSPENSION Swish and swallow 5 mL (500,000 Units) 3 times daily for 10 days. OMEPRAZOLE (PRILOSEC) [address] CAPSULE Take 1 capsule (20 mg) by mouth daily. Do not crush or chew. PEDIATRIC MULTIVITAMINS-IRON (FLINTSTONES PLUS IRON PO) Take by mouth. RESPIRATORY THERAPY SUPPLIES (CARETOUCH 2 CPAP HOSE PRODUCE SHIPPER) MISC 10 cm h20 VITAMIN D, CHOLECALCIFEROL, PO Take by mouth daily. Modified Medications No medications on file Discontinued Medications COLESTIPOL (COLESTID) 1 G TABLET Take 1 g by mouth Daily as needed. OXYCODONE-ACETAMINOPHEN (PERCOCET) 5-325 MG TABLET Take 1 tablet by mouth every 8 hours as needed for severe pain (7-10) for up to 3 days. Doing well since hospital d/c (bounce back for bleeding - stopped Lovenox and doing great.) She met with the dietitian today to review are vitamin and protein recommendations. Increase activity as recommended, the wounds are healed, no evidence of abdominal wall hernias. No nausea vomiting or dysphagia noted. Appropriate bowel function, discussed with her regarding contacting us for any questions or concerns. The lab slip was signed for the next visit. Follow up 1 month postop. I personally performed the evaluation and management of Anne Marie Peterson in the development of a treatment plan for this patient. I personally interviewed the patient and performed an individual physical examination. In addition, I discussed the patient's condition and treatment options with them. Ihave also reviewed and agree with the past medical, family and social history unless otherwise noted. All of the patient's questions were answered. Patient Care Team: Xenia Lane as PCP - General (Family Medicine) Silviano Daley (Obstetrics and Gynecology) Memo Campbell MD as Surgeon (General Surgery) Zully Anton RN as Registered Nurse (Bariatrics) Eliazar Abreu MD as Consulting Physician (Internal Medicine Cardiovascular Disease) * Krystal Flowers MA - 05/27/2023 8:25 AM EDT [facility] POST WEIGHT LOSS SURGERY FOLLOW UP - 1 WEEK Rooming Note Patient: Anne Marie Peterson Service Date: 05/27/2023 Patient is 1 week s/p Lap RnY Gastric Bypass Post-Surgical Weight Loss Date: 05/27/23 Height: 5' 5.25 (165.7 cm) Weight: 372 lb 6.4 oz (169 kg) BMI: 61.49 Weight Change: -18.8 lbs Total Weight Change: -30.6 lbs % EBWL: 11% Comments: 1WK Pain: Patient rates pain on scale 0-10 as: 0 Patient has the following questions: Patient diabetic If patient IS Diabetic: Patient spoken with the physician who prescribes their diabetic medications Patient resumed their diabetic medications as directed by their physician Patient advised as follows by physician prescribing diabetic medications: Exercise Compliance: Compliance with recommended current exercise plan of walking/frequent ambulation: yes Falls Risk Assessment Patient does not take medications which affect BP or mental status Patient does not have newly prescribed or changed dosage of medications within past 30 days which affect BP or mental status Patient has not fallen in the past 2 months Patient does not demonstrate unsteady gait Patient uses the following ambulatory assistive devices: NONE Patient states the presence of the following traits which increases risk of fall: NONE Patient is low risk for falls. If high or moderate risk, patient instructed not to ambulate independently in the Center, and cord for call light placed within reach of patient. Pre-op Weight Metrics: Date of Initial Surgical Consultation: @FLOWLAST(800)@ Initial Weight: @FLOWLAST([id number])@ Initial BMI: @FLOWLAST([id number])@ [place] Body Weight: @FLOWLAST([id number])@ Highest Pre-Op Weight: @FLOWLAST([id number])@ Highest Pre-Op BMI: @FLOWLAST([id number])@ Excess Body Weight: @FLOWLAST([id number])@ Test 12.15.22 : Initial Surgical Consultation Post-op Weight Metrics: %EBWL: % EBWL: 11% Weight Change Since Last Visit: Weight Change: -18.8 lbs Weight Change from Highest Pre-op Weight: Total Weight Change: -30.6 lbs Completed by: Krystal Flowers MA * Kimberley Frank RD - 05/27/2023 8:25 AM EDT [facility] 1 WEEK VISIT POST-OPERATIVE DIETITIAN Date: 05/27/23 Protein requirements discussed. Patient to consume 65-75 grams daily. Fluid requirements discussed. Patient to consume 64 oz+ daily. Patient is aware that she must consume fluids 30 mintues before and after meals. Exercise activities discussed with the patient. She does have a plan for exercise when cleared. Patient advised that regular exercise is vital to a successful outcome following weight loss surgery. Behavioral/Emotional changes reviewed Patient does feel comfortable with changes in eating behaviors and associated emotional changes. She was reminded that psychological counseling is available through the [facility] post-operatively. The importance of vitamin supplementation has been discussed with patient. She will start the following vitamin supplements today: -Multivitamin with minerals and iron -Calcium -Vitamin B12 -Vitamin D3 -Other: Recent Nutrient Concerns and Vitamin Supplementation Changes: Pt began taking vitamins and mineralsupon discharge from hospital. Notes/Comments: Pt tolerating pureed diet and will continue on pureed through May 29. Pt to work on increasing meal frequency On May 30, pt to advance to the soft diet, and remain on the soft diet until returns for 1 month post-op appointment. Pt encouraged to call/Mychart with questions. Visit completed by: Kimberley Frank RD documented in this [facility]04-02-2024 Telephone encounter Note* Telephone Encounter - Zully Anton RN - 05/25/2023 2:12 PM EDT Patient discharged to home 05/21/23. Follow up with JACINTA on 05/27/23. [facility] Miscellaneous Notes* Telephone Encounter - Zully Anton RN - 05/25/2023 2:12 PM EDT Patient discharged to home 05/21/23. Follow up with JACINTA on 05/27/23. * Telephone Encounter - Zully Anton RN - 05/20/2023 7:41 AM EDT JACINTA LRYGB 05/10/23 Patient presented to ED on 05/19/23 for epigastric pain, chills and sensation that her heart is racing. Had been previously seen in [place] ED on 05/18/23 for abdominal and sternal pain and was senthome. CT showed fluid about the liver into the pelvis, suspicious for blood products and hemoperitoneum. Patient currently admitted for observation, will continue to monitor. * Telephone Encounter - SUZANNA Lyons - 05/20/2023 7:24 AM EDT [facility]- pt currently admitted- please change appt to next week, thanks documented in this [facility]03-29-2024 Note* Care Coordination - Vilma Weller RN - 05/21/2023 12:50 PM EDT Pt to be discharged to home with fiance. She denies any needs from [facility]. [id number] Note* Care Coordination - Vilma Weller RN - 05/21/2023 12:50 PM EDT Pt to be discharged to home with fiance. She denies any needs from [facility]. [facility]aftim[facility]-0736 Miscellaneous Notes* Care Coordination - Vilma Weller RN - 05/21/2023 12:50 PM EDT Pt to be discharged to home with fiance. She denies any needs from [facility]. * Care Coordination - Vilma Weller RN - 05/20/2023 9:54 AM EDT Care Managment Initial Assessment Date: 05/20/2023 Patient Name: Anne Marie Peterson : 1995 Patient Information Source of Information: Patient Cognition/Language: WFL - Within Functional Limits Permission given to speak with patient customer care representative/caregiver as indicated: Confirmation of Payer with patient/family: Yes Payer Name: [facility] Medicaid : No Confirmation of Primary Care Physician: Confirmed PCP Name: Xenia Lane Seen in last 2 years?: Yes Primary Caregiver: Self If assistance needed, confirmed caregiver ready, willing and able to care for patient at discharge: Confirmed with: Living Arrangements Current Residence: Number of Floors 2 Number of Entry Steps: 3 Bed/Bath Levels: Both second floor Facility: Facility Name: Plan to Return: Lives with: Spouse/significant other Support Systems: Spouse/significant other, Family members, Friends/neighbors Activities of Daily Living Ambulation: Independent Bathing/Dressing: Independent Elimination/Continence/Toileting: Independent Feeding: Independent Who Assists with Activities of Daily Living: Instrumental Activities of Daily Living Prescription Coverage: Yes [facility] Medication Management: Independent Transportation/Shopping: Independent Transportation Mode: Car Needs Assistance with Transportation at Discharge: No (s.o. will transport) Meal Preparation: Independent Laundry/Cleaning: Independent Finances/Bill Paying: Independent Communication: Independent Types of Care Services/Equipment Utilized Care Services: Dialysis Type: Durable Medical Equipment: CPap DME Provider: Sandra Patient's Goal/Discharge Plan Patient expects to be discharged to: home with fiance Discharge Planning Actions: Continue to follow Patient's Choice Rights and [employer] and Collaborative Relationships Disclosed as Indicated for Post-Acute Care: Interdisciplinary Team Engagement: Social Work Referral for: Additional Information: 27 yo female assigned to observation status for c/o abd pain. 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 CT scan revealing perihepatic bleeding. Pt is NPO and receiving LR iv 100 ml/hr. Trending hgb. Met with pt; explained role of tcc. Pt lives with her fiance. She is independent adls and uses cpap at hs. Pt denies any dc needs from tcc. Tcc will continue to follow. Vilma Weller RN documented in this [facility]03-29-2024 Nurse Note* Odette Burleson RN - 05/21/2023 12:48 PM EDT Discharge instructions reviewed with the patient. Patient verbalized understanding of the instructions. Medications were delivered to bedside. All personal belongings were sent home with the patient and patient was transported by a friend. [id number]* Odette Burleson RN - 05/21/2023 12:48 PM EDT Discharge instructions reviewed with the patient. Patient verbalized understanding of the instructions. Medications were delivered to bedside. All personal belongings were sent home with the patient and patient was transported by a friend. documented in this [facility]03-29-2024 Hospital course Narrative* Memo Campbell MD - 05/21/2023 11:10 AM EDT Images from the original note were not included. Discharge Summary Anne Marie Peterson : 1995 ADMIT DATE: 05/19/2023 DISCHARGE DATE: 05/21/23 ATTENDING PHYSICIAN: Jeannine Worthy MD VISIT STATUS: Observation CODE STATUS: Full Code DISCHARGE DIAGNOSES: Patient Active Problem List Diagnosis Date Noted Dizziness 05/19/2023 History of motion sickness 05/03/2023 Difficult intravenous access 05/03/2023 Hypertension 04/08/2023 Morbid obesity with BMI of 60.0-69.9, adult (HCC) 04/08/2023 Hepatic steatosis 04/08/2023 Chronic superficial gastritis without bleeding 01/10/2023 Atrial fibrillation with RVR (HCC) 01/08/2023 Mixed hyperlipidemia 01/08/2023 MOE on CPAP 01/08/2023 Prediabetes 09/10/2022 Daytime sleepiness 09/10/2022 Back pain 09/10/2022 BMI Classification: Morbidly Obese (>40.0) Exact BMI: Body mass index is 62.63 kg/m . HOSPITAL COURSE: Anne Marie Peterson is a 27 y.o. female who presented to [facility] on 05/19/2023 with abdominal pain and find to have small area of hemoperitoneum. Hemoglobin trend was stable. At the time of discharge patient's vital signs were within normal limits. Patient was voiding spontaneously, tolerating a diet, ambulating independently and having bowel function. Patient's pain was controlled with PO pain meds. Pt was discharged with instructions as follows. CONSULTANTS: none SIGNIFICANT DIAGNOSTIC STUDIES: Please see chart DISCHARGE MEDICATIONS: Medication List START taking these medications nystatin 745162 UNIT/ML suspension Commonly known as: Mycostatin Swish and swallow 5 mL (500,000 Units) 3 times daily for 10 days. CHANGE how you take these medications oxyCODONE-acetaminophen 5-325 MG tablet Commonly known as: Percocet Take 1 tablet by mouth every 8 hours as needed for severe pain (7-10) for up to 3 days. What changed: when to take this CONTINUE taking these medications CareTouch 2 CPAP Hose Dominatrix misc colestipol 1 g tablet Commonly known as: Colestid magnesium 30 MG tablet metoprolol succinate XL 25 MG 24 hr tablet Commonly known as: Toprol-XL Take 1 tablet (25 mg) by mouth daily. omeprazole [address] capsule Commonly known as: PriLOSEC Take 1 capsule (20 mg) by mouth daily. Do not crush or chew. Vitamin B-12 500 MCG sublingual tablet VITAMIN D (CHOLECALCIFEROL) PO STOP taking these medications enoxaparin 60 MG/0.6ML solution prefilled syringe Commonly known as: Lovenox ondansetron 4 MG tablet Commonly known as: Zofran ASK your doctor about these medications ferrous sulfate 325 (65 Fe) MG tablet Take 1 tablet (325 mg) by mouth 2 times daily. Where to Get Your Medications These medications were sent to [facility] [address] [place] [address] Hours: Wednesday to Wednesday 10 am to 6 pm oxyCODONE-acetaminophen 5-325 MG tablet These medications were sent to [place] [phone] nystatin [id number] UNIT/ML suspension DIET: Adult diet Bariatric Pureed ACTIVITY: No heavy lifting. up with assist WOUND CARE: keep wound clean and dry DISPOSITION: Home FACILITY/HOME CARE AGENCY NAME: Follow up with: Jeannine Worthy MD in 1-2 weeks PCP: Xenia Lane in 1-2 weeks DISCHARGE TIME: < 30 minutes SIGNED: Christy Lopez MD 05/21/2023, 11:10 AM documented in this [facility]03-29-2024 Hospital Discharge instructions* Discharge Instructions* Kimberley Frank RD - 05/21/2023 11:00 AM EDT - Stop taking Lovenox shots - Continue Bariatric pureed diet - Please call our office if any further dizziness/lightheadedness, worsening abdominal pain, or if you develop new symptoms including shortness of breath, palpitations or chest pain - Do not drive while taking narcotic pain medications Pureed Diet Instruction Provided to pt: Pureed Diet From: 05/21/2023-05/30/2023 All foods should be blended to the consistency of mashed potatoes or applesauce. NO nuts, seeds, salads, skins (ie peels of fruit or vegetables), or eggs (egg salad okay) Portion Size Amounts: 1/4 cup (2 ounces) Meal Frequency: 5-6 times per day as tolerated. Protein Goal: >/=65 grams per day Fluid Goal: 64 ounces per day- stop drinking 30 minutes before meals and wait to drink until 30 minutes after eating Provided post-op pureed recipe booklet Begin Vitamin Mineral Protocol (provided handout with protocol): 2/day Multivitamin with iron (Children's Chewable Flinstone's with iron; 18 mg iron per tab) Tums: 500 mg three times per day (keep separate from multivitamin by 2 hours because calcium and iron compete for absorption) Vitamin B12: 500 mcg per day (dissolvable under the tongue-tab or liquid) Vitamin D3: 4000 international units per day (soft gels or liquid) Biotin (optional): 5000 mcg per day Kimberley Frank MS, RD, CSSD, LD documented in this [facility]03-29-2024 History of Present illness Narrative* Zully Anton RN - 05/21/2023 7:58 AM EDT Patient fully dressed sitting upright in bed. States she is feeling better. She states the feeling that her heart is accelerating has resolved. No dizziness. She is tolerating clear and full liquids.Denies pain. Incisions well healed. Abdomen soft and non-tender. States she has no needs at this time. Will continue to monitor. * Amber Espinoza MD - 05/21/2023 7:35 AM EDT Images from the original note were not included. Department of General Surgery Daily Progress Note ADMIT DATE: 05/19/2023 TODAY'S DATE: 05/21/2023 SUBJECTIVE: No acute events overnight. Tolerating FLD. Pain well-controlled with medication. Dizziness resolved, ambulating independently. Denies: fevers, chills, nausea, vomiting, shortness of breath or chest pain. ROS: Noted above unless otherwise mentioned OBJECTIVE: VITALS: Temp: [36.6 C (97.8 F)-36.7 C (98 F)] 36.6 C (97.8 F) Heart Rate: [80-95] 80 Resp: [16] 16 BP: (118-132)/(68-88) 120/68 INTAKE/OUTPUT: Intake/Output Summary (Last 24 hours) at 05/21/2023 0735 Last data filed at 05/20/2023 2237 Gross per 24 hour Intake 1486.67 ml Output -- Net 1486.67 ml I/O last 3 completed shifts: In: 1486.7 (8.6 mL/kg) [I.V.:1486.7 (8.6 mL/kg)] Out: - (0 mL/kg) Weight: 172.4 kg No intake/output data recorded. PHYSICAL EXAM: Gen: NAD, A&Ox3, pain well controlled Heart: RRR, well perfused Lungs: symmetric chest rise, normal work of breathing, breath sounds b/l Abd: soft, mildly tender to palpation of abdomen, non distended. Non rigid. Incisions well-healed Ext: no c/c/e no gross deformities Skin: warm, well perfused, no obvious rashes, cellulitis or gross discoloration LABS CBC: Auto WBC Date Value Ref Range Status 05/21/2023 9.1 3.6 - 10.7 10*3/uL Final 05/20/2023 9.6 3.6 - 10.7 10*3/uL Final 05/19/2023 12.0 (H) 3.6 - 10.7 10*3/uL Final Hemoglobin Date Value Ref Range Status 05/21/2023 7.9 (L) 11.7 - 16.0 g/dL Final 05/20/2023 8.5 (L) 11.7 - 16.0 g/dL Final 05/20/2023 8.4 (L) 11.7 - 16.0 g/dL Final Platelets Date Value Ref Range Status 05/21/2023 326 140 - 440 10*3/uL Final 05/20/2023 350 140 - 440 10*3/uL Final 05/19/2023 398 140 - 440 10*3/uL Final BMP: SODIUM Date Value Ref Range Status 05/21/2023 135 135 - 145 mmol/L Final 05/20/2023 136 135 - 145 mmol/L Final 05/19/2023 135 135 - 145 mmol/L Final POTASSIUM Date Value Ref Range Status 05/21/2023 3.1 (L) 3.5 - 5.1 mmol/L Final 05/20/2023 3.5 3.5 - 5.1 mmol/L Final 05/19/2023 3.9 3.5 - 5.1 mmol/L Final CHLORIDE Date Value Ref Range Status 05/21/2023 104 98 - 107 mmol/L Final 05/20/2023 105 98 - 107 mmol/L Final 05/19/2023 104 98 - 107 mmol/L Final CARBON DIOXIDE Date Value Ref Range Status 05/21/2023 19 (L) 22 - 30 mmol/L Final 05/20/2023 17 (L) 22 - 30 mmol/L Final 05/19/2023 20 (L) 22 - 30 mmol/L Final UREA NITROGEN Date Value Ref Range Status 05/21/2023 2 (L) 7 - 17 mg/dL Final 05/20/2023 3 (L) 7 - 17 mg/dL Final 05/19/2023 4 (L) 7 - 17 mg/dL Final CREATININE Date Value Ref Range Status 05/21/2023 0.47 (L) 0.52 - 1.04 mg/dL Final 05/20/2023 0.54 0.52 - 1.04 mg/dL Final 05/19/2023 0.61 0.52 - 1.04 mg/dL Final Hepatic: AST (SGOT) Date Value Ref Range Status 05/19/2023 28 15 - 46 U/L Final 12/14/2022 23 15 - 46 U/L Final ALT Date Value Ref Range Status 05/19/2023 33 0 - 34 U/L Final 12/14/2022 23 0 - 34 U/L Final ALBUMIN Date Value Ref Range Status 05/19/2023 3.9 3.5 - 5.0 g/dL Final 05/03/2023 4.5 3.5 - 5.0 g/dL Final 12/14/2022 4.4 3.5 - 5.0 g/dL Final BILIRUBIN, TOTAL Date Value Ref Range Status 05/19/2023 0.8 0.2 - 1.3 mg/dL Final 12/14/2022 0.5 0.2 - 1.3 mg/dL Final ALKALINE PHOSPHATASE Date Value Ref Range Status 05/19/2023 61 38 - 126 U/L Final 12/14/2022 70 38 - 126 U/L Final Current Inpatient Medications Scheduled Meds:acetaminophen, 1,000 mg, IntraVENous, 3 times per day magnesium sulfate, 2,000 mg, IntraVENous, Once metoprolol, 5 mg, IntraVENous, q6h nystatin, 5 mL, Swish & Swallow, TID pantoprazole (ProtoNix) 40 mg in sodium chloride (PF) 0.9 % 10 mL injection, 40 mg, IntraVENous, Daily Continuous Infusions: PRN Meds:PRN medications: HYDROmorphone OR HYDROmorphone, naloxone, ondansetron ODT OR ondansetron ASSESSMENT AND PLAN: 27 y.o. female s/p RYGB 05/08 presenting with hemoperitoneum - Hemoglobin overall stable, likely some dilutional aspect due to IVF yesterday - Diet: advance to pureed bariatric diet as tolerated - Pain and nausea control PRN - OOBAT - DVT ppx with SCD's - Dispo: likely dc today Will discuss with Dr. Shannan Espinoza MD General Surgery PGY-1 05/21/23 7:35 AM Pager # [phone] This note may have been dictated using i[employer] Medical Practice Edition 2.6 and/or Personalis Voice Recognition Feature. The document was proofread; however, unrecognized voice recognition sheet metal roofer errors may be present. Associated attestation - Memo Campbell MD - 05/21/2023 10:05 AM EDT Images from the original note were not included. [facility] - Surgery [facility] Physicians Surgery Patient Name: Anne Marie Peterson Date: 03/29/24 No acute overnight, feels well, no symptoms, hemoglobin stable, 8.4, 8.5, 7.9. Tolerating p.o., all dizziness resolved. She is ambulatory independently without chest pain or shortness of breath. BP 118/67 Pulse 94 Temp 36.6 C (97.9 F) (Temporal) Resp 16 Ht 5' 5.32 (1.659 m) Wt (!) 380 lb (172 kg) SpO2 98% BMI 62.63 kg/m CBC: Recent Labs 05/19/23 1522 05/20/23 0358 05/20/23 1805 05/21/23 0021 WBC 12.0* 9.6 -- 9.1 HGB 10.1* 8.4* 8.5* 7.9* HCT 32.6* 26.8* 28.4* 25.9* PLT 398 350 -- 326 BMP: Recent Labs 05/19/23 1522 05/20/23 0358 05/21/23 0021 NA 135 136 135 K 3.9 3.5 3.1* CL 104 105 104 CO2 20* 17* 19* BUN 4* 3* 2* CREATININE 0.61 0.54 0.47* GLUCOSE 94 90 78 Hepatic: Recent Labs 05/19/23 1522 ALKPHOS 61 ALT 33 AST 28 PROT 7.5 BILITOT 0.8 Abdomen: Soft, approp. tender, nondistended. Wounds healing. Plan: Discharged home Stable, after acute blood loss anemia, will hold VTE prophylaxis and Lovenox Lower extremity duplex negative I personally supervised my Resident/Surgical Fellow in the evaluation and management of Anne Marie Peterson in the development of a treatment plan for this patient. I personally interviewed the patient and performed an individual physical examination. In addition, I discussed the patient's condition and treatment options with them. I have also reviewed and agree with the past medical, family and social history and care plan unless otherwise noted. All of the patient's questions were answered. * Henny Mcmanus, DANGELO - 05/20/2023 4:43 PM EDT Nutrition Note: Received nursing referral for weight loss. Patient s/p LAP GASTRIC BYPASS/SANDRA-EN-Y on 05/10/23. 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 Suggest continue with full liquid diet and advance to pureed when able. Patient reports probable discharge tomorrow. RD sign off to equipment maintenance tech to continue to monitor. Henny Mcmanus MS RD Clinical Dietitian * Zully Anton RN - 05/20/2023 9:41 AM EDT Bariatric Reel Blade Bender Furnace Tender Note Procedure: laparoscopic LRYGB 04/23/2023 Begin Bariatric Full Liquid diet: Yes Pain resting comfortably, sitting upright in bed. Vital signs stable. Adequate urine output: Yes Abdomen soft, non-distended Bowel sounds: normoactive Surgical incisions well approximated. No redness or drainage, skin healing nicely. Instructed patient on ambulating in halls at least three times a day and hourly use of incentive spirometer. Patient aware to ask for assistance as needed. Call light in reach. SCDs to bilateral lower extremities while in bed. Pain control: Pain medication: dilaudid Will monitor patients tolerance to liquids and pain medication. Interventions: No If yes: * Amber Espinoza MD - 05/20/2023 7:52 AM EDT Images from the original note were not included. Department of General Surgery Daily Progress Note ADMIT DATE: 05/19/2023 TODAY'S DATE: 05/20/2023 SUBJECTIVE: No acute events overnight. Was tolerating diet prior to admission. Pain well-controlledwith medication. Denies: fevers, chills, nausea, vomiting, shortness of breath or chest pain. ROS: Noted above unless otherwise mentioned OBJECTIVE: VITALS: Temp: [35.7 C (96.2 F)-36.6 C (97.8 F)] 36.5 C (97.7 F) Heart Rate: [82-105] 82 Resp: [16-18] 18 BP: (103-155)/(66-85) 103/66 INTAKE/OUTPUT: No intake or output data in the 24 hours ending 05/20/23 0753 No intake/output data recorded. No intake/output data recorded. PHYSICAL EXAM: Gen: NAD, A&Ox3, pain well controlled Heart: RRR, well perfused Lungs: symmetric chest rise, normal work of breathing, breath sounds b/l Abd: soft, mildly tender to palpation of abdomen, non distended. Non rigid. Incisions well-healed Ext: no c/c/e no gross deformities Skin: warm, well perfused, no obvious rashes, cellulitis or gross discoloration LABS CBC: Auto WBC Date Value Ref Range Status 05/20/2023 9.6 3.6 - 10.7 10*3/uL Final 05/19/2023 12.0 (H) 3.6 - 10.7 10*3/uL Final 05/11/2023 15.4 (H) 3.6 - 10.7 10*3/uL Final Hemoglobin Date Value Ref Range Status 05/20/2023 8.4 (L) 11.7 - 16.0 g/dL Final 05/19/2023 10.1 (L) 11.7 - 16.0 g/dL Final 05/11/2023 11.4 (L) 11.7 - 16.0 g/dL Final Platelets Date Value Ref Range Status 05/20/2023 350 140 - 440 10*3/uL Final 05/19/2023 398 140 - 440 10*3/uL Final 05/11/2023 406 140 - 440 10*3/uL Final BMP: SODIUM Date Value Ref Range Status 05/20/2023 136 135 - 145 mmol/L Final 05/19/2023 135 135 - 145 mmol/L Final 05/11/2023 134 (L) 135 - 145 mmol/L Final POTASSIUM Date Value Ref Range Status 05/20/2023 3.5 3.5 - 5.1 mmol/L Final 05/19/2023 3.9 3.5 - 5.1 mmol/L Final 05/11/2023 4.9 3.5 - 5.1 mmol/L Final CHLORIDE Date Value Ref Range Status 05/20/2023 105 98 - 107 mmol/L Final 05/19/2023 104 98 - 107 mmol/L Final 05/11/2023 100 98 - 107 mmol/L Final CARBON DIOXIDE Date Value Ref Range Status 05/20/2023 17 (L) 22 - 30 mmol/L Final 05/19/2023 20 (L) 22 - 30 mmol/L Final 05/11/2023 22 22 - 30 mmol/L Final UREA NITROGEN Date Value Ref Range Status 05/20/2023 3 (L) 7 - 17 mg/dL Final 05/19/2023 4 (L) 7 - 17 mg/dL Final 05/11/2023 10 7 - 17 mg/dL Final CREATININE Date Value Ref Range Status 05/20/2023 0.54 0.52 - 1.04 mg/dL Final 05/19/2023 0.61 0.52 - 1.04 mg/dL Final 05/11/2023 0.52 0.52 - 1.04 mg/dL Final Hepatic: AST (SGOT) Date Value Ref Range Status 05/19/2023 28 15 - 46 U/L Final 12/14/2022 23 15 - 46 U/L Final ALT Date Value Ref Range Status 05/19/2023 33 0 - 34 U/L Final 12/14/2022 23 0 - 34 U/L Final ALBUMIN Date Value Ref Range Status 05/19/2023 3.9 3.5 - 5.0 g/dL Final 05/03/2023 4.5 3.5 - 5.0 g/dL Final 12/14/2022 4.4 3.5 - 5.0 g/dL Final BILIRUBIN, TOTAL Date Value Ref Range Status 05/19/2023 0.8 0.2 - 1.3 mg/dL Final 12/14/2022 0.5 0.2 - 1.3 mg/dL Final ALKALINE PHOSPHATASE Date Value Ref Range Status 05/19/2023 61 38 - 126 U/L Final 12/14/2022 70 38 - 126 U/L Final Current Inpatient Medications Scheduled Meds:acetaminophen, 1,000 mg, IntraVENous, 3 times per day metoprolol, 5 mg, IntraVENous, q6h pantoprazole (ProtoNix) 40 mg in sodium chloride (PF) 0.9 % 10 mL injection, 40 mg, IntraVENous, Daily Continuous Infusions:lactated Ringer's, 100 mL/hr, Last Rate: 100 mL/hr (05/20/23 003) PRN Meds:PRN medications: HYDROmorphone OR HYDROmorphone, naloxone, ondansetron ODT OR ondansetron ASSESSMENT AND PLAN: 27 y.o. female s/p RYGB 05/08 presenting with hemoperitoneum - Trend hemoglobin - Diet: will discuss restarting regular diet - Pain and nausea control PRN - OOBAT - DVT ppx with SCD's Will discuss with Dr. Shannan Espinoza MD General Surgery PGY-1 05/20/23 7:53 AM Pager # [phone] This note may have been dictated using Emergency CallWorks Practice Edition 2.6 and/or Personalis Voice Recognition Feature. The document was proofread; however, unrecognized voice recognition sheet metal roofer errors may be present. Associated attestation - Memo Campbell MD - 05/20/2023 4:37 PM EDT Images from the original note were not included. [facility] - Surgery [facility] Physicians Surgery Patient Name: Anne Marie Peterson Date: 05/20/23 Sitting up in a chair, minimal complaints. She states she feels steady on her feet, no symptoms or dizziness. Vitals are stable. CT scan reviewed with her and her at bedside. BP 132/80 Pulse 95 Temp 36.5 C (97.7 F) (Temporal) Resp 18 Ht 5' 5.32 (1.659 m) Wt (!) 380 lb (172 kg) SpO2 97% BMI 62.63 kg/m CBC: Recent Labs 05/19/23 1522 05/20/23 0358 WBC 12.0* 9.6 HGB 10.1* 8.4* HCT 32.6* 26.8* PLT 398 350 BMP: Recent Labs 05/19/23 1522 05/20/23 0358 NA 135 136 K 3.9 3.5 CL 104 105 CO2 20* 17* BUN 4* 3* CREATININE 0.61 0.54 GLUCOSE 94 90 Hepatic: Recent Labs 05/19/23 1522 ALKPHOS 61 ALT 33 AST 28 PROT 7.5 BILITOT 0.8 Abdomen: Soft, mildly tender, nondistended. Plan: POD #10 Discharged on VTE prophylaxis and Lovenox, was doing great till 48 hours ago and had acute abdominal pain. CT reviewed with some evidence of fluid around the liver consistent with hemoperitoneum. Hemoglobin dropped, recheck this afternoon, hold VTE prophylaxis Increase activity, stable now without dizziness or tachycardia Will check lower extremity duplex in a.m. to make sure she has no lower extremity DVT prior to discharge, anticipated for a.m. if hemoglobin stable and she remains asymptomatic Will have bariatric dietitian see her tomorrow to advance her diet Rx oral thrush All questions answered I personally supervised my Resident/Surgical Fellow in the evaluation and management of Anne Marie Peterson in the development of a treatment plan for this patient. I personally interviewed the patient and performed an individual physical examination. In addition, I discussed the patient's condition and treatment options with them. I have also reviewed and agree with the past medical, family and social history and care plan unless otherwise noted. All of the patient's questions were answered. documented in this [facility]03-28-2024 Note* Care Coordination - Vilma Weller RN - 05/20/2023 9:54 AM EDT Care Managment Initial Assessment Date: 05/20/2023 Patient Name: Anne Marie Peterson : 1995 Patient Information Source of Information: Patient Cognition/Language: WFL - Within Functional Limits Permission given to speak with patient customer care representative/caregiver as indicated: Confirmation of Payer with patient/family: Yes Payer Name: [facility] Medicaid [place]: No Confirmation of Primary Care Physician: Confirmed PCP Name: Xenia Lane Seen in last 2 years?: Yes Primary Caregiver: Self If assistance needed, confirmed caregiver ready, willing and able to care for patient at discharge: Confirmed with: Living Arrangements Current Residence: Number of Floors 2 Number of Entry Steps: 3 Bed/Bath Levels: Both second floor Facility: Facility Name: Plan to Return: Lives with: Spouse/significant other Support Systems: Spouse/significant other, Family members, Friends/neighbors Activities of Daily Living Ambulation: Independent Bathing/Dressing: Independent Elimination/Continence/Toileting: Independent Feeding: Independent Who Assists with Activities of Daily Living: Instrumental Activities of Daily Living Prescription Coverage: Yes [facility] Medication Management: Independent Transportation/Shopping: Independent Transportation Mode: Car Needs Assistance with Transportation at Discharge: No (s.o. will transport) Meal Preparation: Independent Laundry/Cleaning: Independent Finances/Bill Paying: Independent Communication: Independent Types of Care Services/Equipment Utilized Care Services: Dialysis Type: Durable Medical Equipment: CPap DME Provider: Sandra Patient's Goal/Discharge Plan Patient expects to be discharged to: home with fiance Discharge Planning Actions: Continue to follow Patient's Choice Rights and [employer] and Collaborative Relationships Disclosed as Indicated for Post-Acute Care: Interdisciplinary Team Engagement: Social Work Referral for: Additional Information: 27 yo female assigned to observation status for c/o abd pain. 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 CT scan revealing perihepatic bleeding. Pt is NPO and receiving LR iv 100 ml/hr. Trending hgb. Met with pt; explained role of tcc. Pt lives with her fiance. She is independent adls and uses cpap at hs. Pt denies any dc needs from tcc. Tcc will continue to follow. Vilma Weller RN [id number] Note* Care Coordination - Vilma Weller RN - 05/20/2023 9:54 AM EDT Care Managment Initial Assessment Date: 05/20/2023 Patient Name: Anne Marie Peterson : 1995 Patient Information Source of Information: Patient Cognition/Language: WFL - Within Functional Limits Permission given to speak with patient customer care representative/caregiver as indicated: Confirmation of Payer with patient/family: Yes Payer Name: [facility] Medicaid [place]: No Confirmation of Primary Care Physician: Confirmed PCP Name: Xenia Lane Seen in last 2 years?: Yes Primary Caregiver: Self If assistance needed, confirmed caregiver ready, willing and able to care for patient at discharge: Confirmed with: Living Arrangements Current Residence: Number of Floors 2 Number of Entry Steps: 3 Bed/Bath Levels: Both second floor Facility: Facility Name: Plan to Return: Lives with: Spouse/significant other Support Systems: Spouse/significant other, Family members, Friends/neighbors Activities of Daily Living Ambulation: Independent Bathing/Dressing: Independent Elimination/Continence/Toileting: Independent Feeding: Independent Who Assists with Activities of Daily Living: Instrumental Activities of Daily Living Prescription Coverage: Yes [facility] Medication Management: Independent Transportation/Shopping: Independent Transportation Mode: Car Needs Assistance with Transportation at Discharge: No (s.o. will transport) Meal Preparation: Independent Laundry/Cleaning: Independent Finances/Bill Paying: Independent Communication: Independent Types of Care Services/Equipment Utilized Care Services: Dialysis Type: Durable Medical Equipment: CPap DME Provider: Sandra Patient's Goal/Discharge Plan Patient expects to be discharged to: home with fiance Discharge Planning Actions: Continue to follow Patient's Choice Rights and [employer] and Collaborative Relationships Disclosed as Indicated for Post-Acute Care: Interdisciplinary Team Engagement: Social Work Referral for: Additional Information: 27 yo female assigned to observation status for c/o abd pain. 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 CT scan revealing perihepatic bleeding. Pt is NPO and receiving LR iv 100 ml/hr. Trending hgb. Met with pt; explained role of tcc. Pt lives with her fiance. She is independent adls and uses cpap at hs. Pt denies any dc needs from tcc. Tcc will continue to follow. Vilma Weller RN [facility] [id number] Telephone encounter Note* Telephone Encounter - Zully Anton RN - 05/20/2023 7:41 AM EDT JZ LRYGB 05/10/23 Patient presented to ED on 05/19/23 for epigastric pain, chills and sensation that her heart is racing. Had been previously seen in [place] ED on 05/18/23 for abdominal and sternal pain and was senthome. CT showed fluid about the liver into the pelvis, suspicious for blood products and hemoperitoneum. Patient currently admitted for observation, will continue to monitor. [facility] [id number] Miscellaneous Notes* Telephone Encounter - Zully Anton RN - 05/20/2023 7:41 AM EDT JZ LRYGB 05/10/23 Patient presented to ED on 05/19/23 for epigastric pain, chills and sensation that her heart is racing. Had been previously seen in [place] ED on 05/18/23 for abdominal and sternal pain and was senthome. CT showed fluid about the liver into the pelvis, suspicious for blood products and hemoperitoneum. Patient currently admitted for observation, will continue to monitor. * Telephone Encounter - SUZANNA Lyons - 05/20/2023 7:24 AM EDT Bella- pt currently admitted- please change appt to next week, thanks documented in this encounterSD[facility] [id number] Telephone encounter Note* Telephone Encounter - SUZANNA Lyons - 05/20/2023 7:24 AM EDT Bella- pt currently admitted- please change appt to next week, thanks [facility] [id number] Emergency department Triage note* Danyelle Lu RN - 05/19/2023 10:11 PM EDT Pt presents to ED by EMS as ED to ED transfer for surgical c/s. Pt went to [facility] ED for c/o epigastric abdominal that is intermittent sharp, shooting, chills, and feels like heart is racing. States that she was seen in an ED yesterday and got blood work and CT with con and all results were normal, states she was sent home with oxy for pain. Pt states she just had gastric bypass surgery [address] Busby and a liver biopsy to confirm a fatty liver. CT at [facility] shows perihepatic bleeding. Pt is A&O4, NAD, VSS [facility] [id number] Emergency department Note* Danyelle Lu RN - 05/19/2023 10:11 PM EDT Pt presents to ED by EMS as ED to ED transfer for surgical c/s. Pt went to [facility] ED for c/o epigastric abdominal that is intermittent sharp, shooting, chills, and feels like heart is racing. States that she was seen in an ED yesterday and got blood work and CT with con and all results were normal, states she was sent home with oxy for pain. Pt states she just had gastric bypass surgery [address] Busby and a liver biopsy to confirm a fatty liver. CT at [facility] shows perihepatic bleeding. Pt is A&O4, NAD, VSS * Lucy Castano RN - 05/19/2023 8:58 PM EDT Report called to KATALINA Saldivar at [facility] ETA 0 Lucy Castano RN 05/19/232058 * Helen Mccarthy RN - 05/19/2023 5:57 PM EDT Patient ambulatory to the restroom at this time using cane and S/O at side. Patient tolerated well,maintaining steady gait. Urine specimen to be collected. Helen Mccarthy RN 05/19/231756 * Helen Mccarthy RN - 05/19/2023 5:43 PM EDT This RN spoke with patient at this time per business technology analyst. Patient reports no chance of and reports a negative test at another facility yesterday. Helen Mccarthy RN 05/19/23 9157 * Shauna Hamilton DO - 05/19/2023 1:55 PM EDT EMERGENCY DEPARTMENT ENCOUNTER Pt Name: Anne Marie Peterson Birthdate 1995 Date of evaluation: 05/19/2023 ED Provider: Shauna Hamilton DO CHIEF COMPLAINT Chief Complaint Patient presents with Post-op Problem Pt presents to ED with c/o epigastric abdominal that is intermittent sharp, shooting, chills, and feels like heart is racing. States that she was seen in ED yesterday and everything was normal. States she just had gastric bypass surgery 9 days ago. HISTORY OF PRESENT ILLNESS (Location/Symptom, Timing/Onset, Context/Setting, Quality, Duration, Modifying Factors, Severity) Note limiting factors. I wore appropriate PPE for the entirety of this encounter. HPI Anne Marie Peterson is a 27 y.o. who presents to the emergency department with chief complaint of upperabdominal pain after Sandra-en-Y gastric bypass on 05/10/[address] Campbell at [facility]. States she was seen at outside hospital yesterday had a CT done showing some fluid around her liver but records not transferred here. Was prescribed a second round of Percocet for pain control. She states that they did not discuss with her surgeon at that time. She is supposed to follow-up with her surgeon tomorrow. She is also been having episodes of heart racing and some sharp pains in the upper abdomen. She states that she is taking Lovenox still. Nursing Notes were reviewed. Limitations to history: None Outside historians: Significant other REVIEW OF SYSTEMS Review of Systems Constitutional: Negative for fever. Cardiovascular: Positive for palpitations. Gastrointestinal: Positive for abdominal pain. Pertinent positives and negatives as per HPI. PAST MEDICAL HISTORY Past Medical History: Diagnosis Date Anemia Atrial fibrillation (HCC) 2 episodes Back pain COVID-19 vaccine series completed 10/2020 Daytime sleepiness SANTOS (dyspnea on exertion) Fatigue History of kidney stones History of UTI Incontinence Joint pain, knee PTSD (post-traumatic stress disorder) Sleep apnea, obstructive uses cpap SURGICAL HISTORY Past Surgical History: Procedure Laterality Date COLONOSCOPY HERNIA REPAIR 1999 Dr. Memo Duke / Ernst Chavez [facility] - inguinal hernia LAP GASTRIC BYPASS/SANDRA-EN-Y (HISTORICAL) 05/10/2023 LRYGB - Dr. Campbell LAP,CHOLECYSTECTOMY (HISTORICAL) 2009 Dr. Memo Duke / Ernstreece Chavez [facility] UPPER GASTROINTESTINAL ENDOSCOPY CURRENT MEDICATIONS Previous Medications COLESTIPOL (COLESTID) 1 G TABLET Take 1 g by mouth Daily as needed. CYANOCOBALAMIN (VITAMIN B-12) [address] 1 Dose under the tongue daily. ENOXAPARIN (LOVENOX) 60 MG/0.6ML SOLUTION PREFILLED SYRINGE Inject 0.6 mL (60 mg) under the skin inthe morning and 0.6 mL (60 mg) in the evening. Do all this for 14 days. Inject 0.6 mLs into skin 2 times daily for 14 days.. FERROUS SULFATE 325 (65 FE) MG TABLET Take 1 tablet (325 mg) by mouth 2 times daily. MAGNESIUM 30 MG TABLET Take 30 mg by mouth 2 times daily. METOPROLOL SUCCINATE XL (TOPROL-XL) 25 MG 24 HR TABLET Take 1 tablet (25 mg) by mouth daily. OMEPRAZOLE (PRILOSEC) [address] CAPSULE Take 1 capsule (20 mg) by mouth daily. Do not crush or chew. RESPIRATORY THERAPY SUPPLIES (CARETOUCH 2 CPAP HOSE PRODUCE SHIPPER) MISC 10 cm h20 VITAMIN D, CHOLECALCIFEROL, PO Take by mouth daily. ALLERGIES Patient has no known allergies. FAMILY HISTORY Family History Problem Relation Name Age of Onset Cancer Mother Hypertension Mother Obesity Mother Heart disease Father Obesity Father Cancer Maternal Grandmother Heart disease Maternal Grandmother Stroke Maternal Grandfather Hypertension Maternal Grandfather Heart disease Maternal Grandfather Diabetes Maternal Grandfather Obesity Maternal Grandfather Anesthesia problems Maternal Grandfather SOCIAL HISTORY Social History Socioeconomic History Marital status: Significant Other Tobacco Use Smoking status: Never Smokeless tobacco: Never Vaping Use Vaping Use: Never used Substance and Sexual Activity Alcohol use: Not Currently Drug use: Never Sexual activity: Yes Partners: Male control/protection: I.U.D. SCREENINGS PHYSICAL EXAM ED Triage Vitals [05/19/23 1358] Temp Heart Rate Resp BP (!) 35.7 C (96.2 F) 105 18 (!) 155/84 SpO2 Temp Source Heart Rate Source Patient Position 98 % Temporal Monitor -- BP Location FiO2 (%) -- -- Physical Exam Vitals and nursing note reviewed. Constitutional: General: She is not in acute distress. Appearance: She is well-developed. She is obese. HENT: Head: Normocephalic and atraumatic. Eyes: Conjunctiva/sclera: Conjunctivae normal. Cardiovascular: Rate and Rhythm: Normal rate and regular rhythm. Heart sounds: No murmur heard. Pulmonary: Effort: Pulmonary effort is normal. No respiratory distress. Breath sounds: Normal breath sounds. Abdominal: Palpations: Abdomen is soft. Tenderness: There is abdominal tenderness. There is no guarding or rebound. Musculoskeletal: General: No swelling. Cervical back: Neck supple. Skin: General: Skin is warm and dry. Comments: Wearing abdominal binder when removed incision sites are well-healing no evidence of skininfection. Neurological: Mental Status: She is alert. Psychiatric: Mood and Affect: Mood normal. DIAGNOSTIC RESULTS Procedures/EKG: EKG was reviewed by myself. Physician EKG interpretation can be found in [facility] RADIOLOGY (Per Emergency Physician): Interpretation per the Radiologist below, if available at the time of this note: CT abdomen pelvis w contrast Final Result 1. Mildly hyperdense or complex fluid noted about the liver and extending caudally into the pelvis suspicious for blood products and hemoperitoneum. Clinical correlation and follow-up as indicated. 2. Status post gastric bypass without evidence of oral contrast extravasation or mechanical obstruction. 3. Hepatosplenomegaly, and findings compatible with hepatic steatosis; small hypodensity adjacent to gallbladder fossa possibly representing cyst or hemangioma, but nonspecific. Follow-up as indicated. Critical Test Results: Results were discussed with Dr. Hamilton in the ED on August, at 1912hours. Report Dictated on Electronically Signed By: Sarath Zurita MD Electronically Signed Date/Time: 05/19/2023 7:15 PM EDT ED BEDSIDE ULTRASOUND: Performed by ED Physician - none LABS: Labs Reviewed CBC WITH AUTO DIFFERENTIAL - Abnormal Result Value Auto WBC 12.0 (*) RBC 4.52 Hemoglobin 10.1 (*) Hematocrit 32.6 (*) MCV 72.1 (*) MCH 22.3 (*) MCHC 31.0 RDW 16.9 (*) Platelets 398 MPV 10.6 nRBC 0.0 Neutrophils Relative 73.0 Lymphocytes Relative 16.4 Monocytes Relative 8.3 Eosinophils Relative 0.9 Basophils Relative 0.3 Immature Grans % 1.1 Neutrophils Absolute 8.8 (*) Lymphocytes Absolute 2.0 Monocytes Absolute 1.0 (*) Eosinophils Absolute 0.1 Basophils Absolute 0.0 Immature Grans Absolute 0.1 (*) COMPREHENSIVE METABOLIC PANEL - Abnormal SODIUM 135 POTASSIUM 3.9 CHLORIDE 104 CARBON DIOXIDE 20 (*) ANION GAP 11 UREA NITROGEN 4 (*) CREATININE 0.61 GLUCOSE 94 CALCIUM 9.1 AST (SGOT) 28 ALT 33 ALKALINE PHOSPHATASE 61 ALBUMIN 3.9 BILIRUBIN, TOTAL 0.8 TOTAL PROTEIN 7.5 eGFR >90.0 LIPASE - Abnormal LIPASE 493 (*) COMPLETE URINALYSIS - Abnormal Color, Urine Light Yellow Clarity, Urine Turbid (*) pH, Urine 6.0 Leukocytes, Urine Negative Nitrite, Urine Negative Protein, Urine 20 (*) Glucose, Urine Normal Bilirubin, Urine Negative Ketones, Urine 150 (*) Urobilinogen, Urine Normal Blood, Urine 0.03 (*) RBC, Urine 0-2 WBC, Urine 0-2 Squamous Epithelial, Urine 0-2 Bacteria, Urine Few (*) Mucus, Urine Few Calcium Carbonate Crystals, Urine Many (*) Amm Biurate Crystals, Urine Few (*) SPECIFIC GRAVITY OF URINE (NUMERIC) 1.012 LACTIC ACID WITH REFLEX - Normal LACTIC ACID 0.7 COMPLETE URINALYSIS WITH REFLEX TO CULTURE Narrative: The following orders were created for panel order Urinalysis Complete with reflex to Culture. Procedure Abnormality Status --------- ------ Complete Urinalysis[[id number]] Abnormal Final result Please view results for these tests on the individual orders. HCG QUALITATIVE URINE HCG,URINE QUAL Negative Narrative: is the most common reason for HCG in urine, although choriocarcinoma, hydatidiform mole, and certain nontrophoblastic malignancies also result in detectable urinary HCG levels. Sensitivity = 20mIU/mL. All other labs were within normal range or not returned as of this dictation. EMERGENCY DEPARTMENT COURSE and DIFFERENTIAL DIAGNOSIS/MDM: Vitals: Vitals: 05/19/23 1358 05/19/23 1358 05/19/23 1749 BP: (!) 155/84 128/85 Pulse: 105 98 Resp: 18 16 Temp: (!) 35.7 C (96.2 F) TempSrc: Temporal SpO2: 98% 99% Weight: (!) 172 kg (380 lb) ED Course as of 05/21/23 1052 WedMay 19, 2023 1510 Status post gastric bypass 05/10/23 with upper abd pain. Seen yesterday outside ED. Taking percocet. Reports chills and heart racing. [BM] 1606 CBC showing a mild leukocytosis to 12 which is downtrending from her admission a week ago at 15. Lactic acid within normal limits. Lipase somewhat elevated at 493. [BM] 1607 CMP largely unremarkable. [BM] ED Course User Index [BM] Shauna Hamilton DO Diagnoses as of 05/21/23 1052 Hemoperitoneum Morbid obesity with BMI of 60.0-69.9, adult ([facility]) EMERGENCY DEPARTMENT COURSE and DIFFERENTIAL DIAGNOSIS/MDM: Vitals: Vitals: 05/19/23 1358 05/19/23 1358 05/19/23 1749 BP: (!) 155/84 128/85 Pulse: 105 98 Resp: 18 16 Temp: (!) 35.7 C (96.2 F) TempSrc: Temporal SpO2: 98% 99% Weight: (!) 172 kg (380 lb) The patient presented with a chief complaint of upper abdominal pain status post gastric bypass surgery on 05/10/2023. The differential diagnosis associated with this patient's presentation includes postsurgical complication, gastritis, hepatitis, bowel obstruction, pancreatitis. Our workup consisted of ordering/reviewing CBC, CMP, lipase, urinalysis, CT abdomen pelvis with contrast. ED Course as of 05/21/23 1052 WedMay 19, 2023 1510 Status post gastric bypass 05/10/23 with upper abd pain. Seen yesterday outside ED. Taking percocet. Reports chills and heart racing. [BM] 1606 CBC showing a mild leukocytosis to 12 which is downtrending from her admission a week ago at 15. Lactic acid within normal limits. Lipase somewhat elevated at 493. [BM] 1607 CMP largely unremarkable. [BM] ED Course User Index [BM] Shauna Hamilton DO Diagnoses as of 05/21/23 1052 Hemoperitoneum Morbid obesity with BMI of 60.0-69.9, adult (HCC) External records reviewed: Inpatient notes records reviewed from 05/10/[address] Campbell for gastric bypass surgery underwent laparoscopic Sandra-en-Y gastric bypass and had UGI on postop day 1 and bariatricclear liquid diet was subsequently started at time of discharge patient was ambulating independently and having bowel function. Diagnostics interpreted by me: CT scan(s) hemoperitoneum noted around the liver Discussions with other clinicians: Enrobing Machine Feeder spoke with the radiologist who relayed CT report to me. Spoke with Dr. Campbell patient surgeon who recommended transfer to [facility] ED for further evaluation by general surgery. Chronic conditions impacting care: Hypertension and hyperlipidemia, hepatic steatosis Social determinants of health affecting care: none ED Medications managed: Medications ondansetron (Zofran) injection 4 mg (4 mg IntraVENous Given 05/19/23 1530) morphine injection 4 mg (4 mg IntraVENous Given 05/19/23 1530) sodium chloride 0.9 % bolus 500 mL (0 mL IntraVENous Stopped 05/19/23 1631) diatrizoate meglumine-sodium (Gastrografin) 66-10 % solution 30 mL (30 mL Oral Given 05/19/23 1530) iopamidol (Isovue-370) 76 % injection 75 mL (75 mL IntraVENous Given 05/19/23 1835) Medications ondansetron (Zofran) injection 4 mg (4 mg IntraVENous Given 05/19/23 1530) morphine injection 4 mg (4 mg IntraVENous Given 05/19/23 1530) sodium chloride 0.9 % bolus 500 mL (0 mL IntraVENous Stopped 05/19/23 1631) diatrizoate meglumine-sodium (Gastrografin) 66-10 % solution 30 mL (30 mL Oral Given 05/19/23 1530) iopamidol (Isovue-370) 76 % injection 75 mL (75 mL IntraVENous Given 05/19/23 1835) REVAL: Updated patient, vital signs remained stable, hemoglobin stable at 10.1. Will transfer to [facility] for evaluation by surgery. CRITICAL CARE TIME FINAL IMPRESSION 1. Hemoperitoneum DISPOSITION Transfer To [facility] 05/19/2023 07:40:02 PM PATIENT REFERRED TO: No follow-up provider specified. DISCHARGE MEDICATIONS: New Prescriptions No medications on file (Comment: Please note this report has been produced using speech recognition software and may contain errors related to that system including errors in grammar, punctuation, and spelling, as well as words and phrases that may be inappropriate. If there are any questions or concerns please feel freeto contact the dictating provider for clarification.) Shauna Hamilton DO (electronically signed) Emergency Medicine Provider Shauna Hamilton DO 05/19/231940 documented in this [facility]03-27-2024 History and physical note* Aurelia Rich MD - 05/19/2023 10:00 PM EDT Images from the original note were not included. Department of General Surgery Surgical Service - Surg 4 Resident H&P Note 05/19/2023 CHIEF COMPLAINT: Chief Complaint Patient presents with Post-op Problem Pt presents to ED with c/o epigastric abdominal that is intermittent sharp, shooting, chills, and feels like heart is racing. States that she was seen in ED yesterday and everything was normal. States she just had gastric bypass surgery 9 days ago. Reason for Consult: Abdominal pain, abn CT imaging HISTORY OF PRESENT ILLNESS: Anne Marie Peterson is a 27 y.o. female with PMHx atrial fibrillation (2 episodes) on metoprolol, sleepapnea, PTSD and is s/p LRYGB on 05/10/[address] Campbell now presenting for abdominal pain. Patient states that after surgery she was doing well, tolerating liquids and ambulating. Yesterday afternoon after using the bathroom, she developed sudden abdominal pain, diaphoresis, and dizziness.She presented to [place] ED and a CT A/P and CTA was obtained. According to the patient she was told she had internal bruising and fluid around her liver and pancreas and discharged home after receiving some IVFs and pain medication. Today patient continued to experience RUQ pain that radiated into her epigastric region, but was slightly improved compared to yesterday. She endorses nausea but denies emesis. States that she also noticed heart palpitations with standing and walking, and felt SOB. She has been passing flatus and has had diarrhea since drink PO contrast today in the ED. States that she is urinating well. Patient has been giving herself home Lovenox injections as instructed. Surgical history includes inguinal hernia repair in 1999 and laparoscopic cholecystectomy [place] [address] Memo Duke. On evaluation patient was afebrile HDS. Labs reviewed significant for: WBC 12.0 Hgb 10.1 (11.4 8 days ago), electrolytes and LFTs wnl, lipase 493, LA 0.7. CT A/P with IV and PO contrast shows perihepatic fluid which extends into the paracolic gutters and intoe pelvis. Hounsfield unit 48 concerning for blood products. No evidence of oral contrast extravasation or obstruction. Past Medical History: Diagnosis Date Anemia Atrial fibrillation (HCC) 2 episodes Back pain COVID-19 vaccine series completed 10/2020 Daytime sleepiness SANTOS (dyspnea on exertion) Fatigue History of kidney stones History of UTI Incontinence Joint pain, knee PTSD (post-traumatic stress disorder) Sleep apnea, obstructive uses cpap Past Surgical History: Procedure Laterality Date COLONOSCOPY HERNIA REPAIR 1999 Dr. Memo Duke / [facility] - inguinal hernia LAP GASTRIC BYPASS/SANDRA-EN-Y (HISTORICAL) 05/10/2023 LRYGB - Dr. Campbell LAP,CHOLECYSTECTOMY (HISTORICAL) 2009 Dr. Memo Duke / [facility] UPPER GASTROINTESTINAL ENDOSCOPY Medications Prior to Admission: No current facility-administered medications on file prior to encounter. Current Outpatient Medications on File Prior to Encounter Medication Sig colestipol (Colestid) 1 g tablet Take 1 g by mouth Daily as needed. Cyanocobalamin (Vitamin B-12) [address] 1 Dose under the tongue daily. enoxaparin (Lovenox) 60 MG/0.6ML solution prefilled syringe Inject 0.6 mL (60 mg) under the skin inthe morning and 0.6 mL (60 mg) in the evening. Do all this for 14 days. Inject 0.6 mLs into skin 2 times daily for 14 days.. ferrous sulfate 325 (65 Fe) MG tablet Take 1 tablet (325 mg) by mouth 2 times daily. (Patient not taking: Reported on 05/10/2023) magnesium 30 MG tablet Take 30 mg by mouth 2 times daily. metoprolol succinate XL (Toprol-XL) 25 MG 24 hr tablet Take 1 tablet (25 mg) by mouth daily. (Patient taking differently: Take 50 mg by mouth daily.) omeprazole (PriLOSEC) [address] capsule Take 1 capsule (20 mg) by mouth daily. Do not crush or chew. [] ondansetron (Zofran) 4 MG tablet Take 1 tablet (4 mg) by mouth every 8 hours as needed for nausea or vomiting for up to 5 days. [] oxyCODONE-acetaminophen (Percocet) 5-325 MG tablet Take 1 tablet by mouth every 6 hours as needed for severe pain (7-10) for up to 5 days. Respiratory Therapy Supplies (CareTouch 2 CPAP Hose Dominatrix) misc 10 cm h20 VITAMIN D, CHOLECALCIFEROL, PO Take by mouth daily. Allergies: Patient has no known allergies. Social History Socioeconomic History Marital status: Significant Other Tobacco Use Smoking status: Never Smokeless tobacco: Never Vaping Use Vaping Use: Never used Substance and Sexual Activity Alcohol use: Not Currently Drug use: Never Sexual activity: Yes Partners: Male control/protection: I.U.D. Family History Problem Relation Name Age of Onset Cancer Mother Hypertension Mother Obesity Mother Heart disease Father Obesity Father Cancer Maternal Grandmother Heart disease Maternal Grandmother Stroke Maternal Grandfather Hypertension Maternal Grandfather Heart disease Maternal Grandfather Diabetes Maternal Grandfather Obesity Maternal Grandfather Anesthesia problems Maternal Grandfather REVIEW OF SYSTEMS: Review of Systems Constitutional: Positive for diaphoresis. Negative for chills and fever. HENT: Negative for congestion and drooling. Eyes: Negative for discharge and redness. Respiratory: Positive for shortness of breath. Negative for cough and choking. Cardiovascular: Positive for palpitations. Negative for chest pain. Gastrointestinal: Positive for abdominal pain, diarrhea and nausea. Negative for vomiting. Musculoskeletal: Negative for neck pain and neck stiffness. Skin: Positive for wound. Negative for rash. Neurological: Negative for seizures and facial asymmetry. Psychiatric/Behavioral: Negative for agitation and confusion. PHYSICAL EXAM: Vitals: 05/19/237 BP: 119/76 Pulse: 87 Resp: 18 Temp: 36.6 C (97.8 F) SpO2: 99% No intake/output data recorded. CONSTITUTIONAL: awake, alert, cooperative, no apparent distress HEENT: No scleral icterus, EOMI NECK: Supple, no thyromegaly LUNGS: No increased work of breathing, good air exchange CARDIOVASCULAR: Well perfused, RRR ABDOMEN: Soft, non-distended, mildly tender in RUQ, no peritoneal signs, steri strips removed, surgical incisions are C/D/I GENITAL/URINARY: Not examined MUSCULOSKELETAL: There is no redness, warmth, or swelling of the joints. Full range of motion noted. NEUROLOGIC: Awake, alert, oriented to name, place and time. SKIN: normal skin color, texture, no redness, warmth, or swelling DATA: CBC: Lab Results Component Value Date WBC 12.0 (H) 05/19/2023 RBC 4.52 05/19/2023 HGB 10.1 (L) 05/19/2023 HCT 32.6 (L) 05/19/2023 MCV 72.1 (L) 05/19/2023 MCH 22.3 (L) 05/19/2023 MCHC 31.0 05/19/2023 RDW 16.9 (H) 05/19/2023 PLT 398 05/19/2023 MPV 10.6 05/19/2023 BMP: Lab Results Component Value Date NA 135 05/19/2023 K 3.9 05/19/2023 CL 104 05/19/2023 CO2 20 (L) 05/19/2023 BUN 4 (L) 05/19/2023 CREATININE 0.61 05/19/2023 CALCIUM 9.1 05/19/2023 GLUCOSE 94 05/19/2023 Hepatic Function Panel: Lab Results Component Value Date ALKPHOS 61 05/19/2023 ALT 33 05/19/2023 AST 28 05/19/2023 PROT 7.5 05/19/2023 BILITOT 0.8 05/19/2023 PT/INR: No results found for: PROTIME, INR Troponin: No results found for: TROPONINI LIPASE: Lab Results Component Value Date LIPASE 493 (H) 05/19/2023 IMAGING: CT abdomen pelvis w contrast Narrative: [facility] 1995 [id number] Exam Date/Time: 05/19/2023 18:37 Procedure: CT ABDOMEN PELVIS W CONTRAST Ordering Provider: HAMILTON BRIGID Reason For Exam: upper abd pain status post gastric bypass on 05/10/23 CT ABDOMEN AND PELVIS WITH CONTRAST CLINICAL INDICATION: upper abd pain status post gastric bypass on 05/10/23 TECHNIQUE: CT scan of the abdomen and pelvis, with IV contrast. Oral contrast administered. Multiplanar reformations. Dose reduction was employed with automated exposure control. COMPARISON: None. FINDINGS: Abdomen: Visualized lung bases grossly unremarkable. Gallbladder surgically absent. Postsurgical changes of gastric bypass. Liver enlarged measuring 20 cm in maximum craniocaudal dimension and shows diffusely decreased attenuation. Small hypodensity adjacent to gallbladder fossa measuring 1.3 cm may represent cyst or hemangioma, but nonspecific. Mildly hyperdense or complex perihepatic fluid or blood measuring up to 1.5 cm in thickness, which extends caudally along the bilateral paracolic gutters and into the pelvis (Hounsfield unit around the liver = 48; pelvis = 43). Very small teardrop shaped focus of similar density in the lesser sac adjacent to the anastomosis site may represent stable. Spleen without significant abnormality. Pancreas without significant abnormality. Kidneys without significant abnormality. Adrenal glands without significant abnormality. Pelvis: Remainder of bowel grossly unremarkable, with contrast material extending through to the rectosigmoid colon. No apparent contrast extravasation or evidence of mechanical obstruction. Possible diminutive appendix or appendiceal remnant partially visualized and grossly unremarkable. No discrete abscess or apparent adenopathy. Abdominal aorta is nonaneurysmal. IUD noted in the uterus. Axial skeleton grossly intact. Small, fat-containing umbilical hernia, with mild soft tissue stranding probably postsurgical change or residual. Impression: 1. Mildly hyperdense or complex fluid noted about the liver and extending caudally intothe pelvis suspicious for blood products and hemoperitoneum. Clinical correlation and follow-up as indicated. 2. Status post gastric bypass without evidence of oral contrast extravasation or mechanical obstruction. 3. Hepatosplenomegaly, and findings compatible with hepatic steatosis; small hypodensity adjacent to gallbladder fossa possibly representing cyst or hemangioma, but nonspecific. Follow-up as indicated. Critical Test Results: Results were discussed with Dr. Hamilton in the ED on August, at 1912hours. Report Dictated on Electronically Signed By: Sarath Zurita MD Electronically Signed Date/Time: 05/19/2023 7:15 PM EDT ECG 12 lead Sinus rhythm Borderline T abnormalities, inferior leads ASSESSMENT AND PLAN: This is a 27 y.o. female s/p LRYGB 05/10/23 now presenting for abdominal pain CT imaging consistent with small amount of blood around liver and within pelvis. However patient ishemodynamically stable, Hgb is 10.1 (from 11.4 8 days ago) with benign abdominal exam. - No need for urgent surgical intervention at this point - Will admit for observation - IVFs - Will make NPO and hold Lovenox tonight - Prn pain and nausea medication - AM labs Patient discussed with attending, Dr. Worthy integration engineer for Dr. Shannan Rich MD General Surgery PGY-3 Pager # [phone] [id number] History and physical note* Aurelia Rich MD - 05/19/2023 10:00 PM EDT Images from the original note were not included. Department of General Surgery Surgical Service - Surg 4 Resident H&P Note 05/19/2023 CHIEF COMPLAINT: Chief Complaint Patient presents with Post-op Problem Pt presents to ED with c/o epigastric abdominal that is intermittent sharp, shooting, chills, and feels like heart is racing. States that she was seen in ED yesterday and everything was normal. States she just had gastric bypass surgery 9 days ago. Reason for Consult: Abdominal pain, abn CT imaging HISTORY OF PRESENT ILLNESS: Anne Marie Peterson is a 27 y.o. female with PMHx atrial fibrillation (2 episodes) on metoprolol, sleepapnea, PTSD and is s/p LRYGB on 05/10/[address] Campbell now presenting for abdominal pain. Patient states that after surgery she was doing well, tolerating liquids and ambulating. Yesterday afternoon after using the bathroom, she developed sudden abdominal pain, diaphoresis, and dizziness.She presented to [place] ED and a CT A/P and CTA was obtained. According to the patient she was told she had internal bruising and fluid around her liver and pancreas and discharged home after receiving some IVFs and pain medication. Today patient continued to experience RUQ pain that radiated into her epigastric region, but was slightly improved compared to yesterday. She endorses nausea but denies emesis. States that she also noticed heart palpitations with standing and walking, and felt SOB. She has been passing flatus and has had diarrhea since drink PO contrast today in the ED. States that she is urinating well. Patient has been giving herself home Lovenox injections as instructed. Surgical history includes inguinal hernia repair in 1999 and laparoscopic cholecyst[place] [address] Memo Duke. On evaluation patient was afebrile HDS. Labs reviewed significant for: WBC 12.0 Hgb 10.1 (11.4 8 days ago), electrolytes and LFTs wnl, lipase 493, LA 0.7. CT A/P with IV and PO contrast shows perihepatic fluid which extends into the paracolic gutters and intoe pelvis. Hounsfield unit 48 concerning for blood products. No evidence of oral contrast extravasation or obstruction. Past Medical History: Diagnosis Date Anemia Atrial fibrillation (HCC) 2 episodes Back pain COVID-19 vaccine series completed 10/2020 Daytime sleepiness SANTOS (dyspnea on exertion) Fatigue History of kidney stones History of UTI Incontinence Joint pain, knee PTSD (post-traumatic stress disorder) Sleep apnea, obstructive uses cpap Past Surgical History: Procedure Laterality Date COLONOSCOPY [facility] LAP GASTRIC BYPASS/SANDRA-EN-Y (HISTORICAL) 05/10/2023 LRYGB - Dr. Campbell LAP,CHOLECYSTECTOMY (HISTORICAL) 2009 [facility] UPPER GASTROINTESTINAL ENDOSCOPY Medications Prior to Admission: No current facility-administered medications on file prior to encounter. Current Outpatient Medications on File Prior to Encounter Medication Sig colestipol (Colestid) 1 g tablet Take 1 g by mouth Daily as needed. Cyanocobalamin (Vitamin B-12) [address] 1 Dose under the tongue daily. enoxaparin (Lovenox) 60 MG/0.6ML solution prefilled syringe Inject 0.6 mL (60 mg) under the skin inthe morning and 0.6 mL (60 mg) in the evening. Do all this for 14 days. Inject 0.6 mLs into skin 2 times daily for 14 days.. ferrous sulfate 325 (65 Fe) MG tablet Take 1 tablet (325 mg) by mouth 2 times daily. (Patient not taking: Reported on 05/10/2023) magnesium 30 MG tablet Take 30 mg by mouth 2 times daily. metoprolol succinate XL (Toprol-XL) 25 MG 24 hr tablet Take 1 tablet (25 mg) by mouth daily. (Patient taking differently: Take 50 mg by mouth daily.) omeprazole (PriLOSEC) [address] capsule Take 1 capsule (20 mg) by mouth daily. Do not crush or chew. [] ondansetron (Zofran) 4 MG tablet Take 1 tablet (4 mg) by mouth every 8 hours as needed for nausea or vomiting for up to 5 days. [] oxyCODONE-acetaminophen (Percocet) 5-325 MG tablet Take 1 tablet by mouth every 6 hours as needed for severe pain (7-10) for up to 5 days. Respiratory Therapy Supplies (CareTouch 2 CPAP Hose Dominatrix) misc 10 cm h20 VITAMIN D, CHOLECALCIFEROL, PO Take by mouth daily. Allergies: Patient has no known allergies. Social History Socioeconomic History Marital status: Significant Other Tobacco Use Smoking status: Never Smokeless tobacco: Never Vaping Use Vaping Use: Never used Substance and Sexual Activity Alcohol use: Not Currently Drug use: Never Sexual activity: Yes Partners: Male control/protection: I.U.D. Family History Problem Relation Name Age of Onset Cancer Mother Hypertension Mother Obesity Mother Heart disease Father Obesity Father Cancer Maternal Grandmother Heart disease Maternal Grandmother Stroke Maternal Grandfather Hypertension Maternal Grandfather Heart disease Maternal Grandfather Diabetes Maternal Grandfather Obesity Maternal Grandfather Anesthesia problems Maternal Grandfather REVIEW OF SYSTEMS: Review of Systems Constitutional: Positive for diaphoresis. Negative for chills and fever. HENT: Negative for congestion and drooling. Eyes: Negative for discharge and redness. Respiratory: Positive for shortness of breath. Negative for cough and choking. Cardiovascular: Positive for palpitations. Negative for chest pain. Gastrointestinal: Positive for abdominal pain, diarrhea and nausea. Negative for vomiting. Musculoskeletal: Negative for neck pain and neck stiffness. Skin: Positive for wound. Negative for rash. Neurological: Negative for seizures and facial asymmetry. Psychiatric/Behavioral: Negative for agitation and confusion. PHYSICAL EXAM: Vitals: 05/19/23 2057 BP: 119/76 Pulse: 87 Resp: 18 Temp: 36.6 C (97.8 F) SpO2: 99% No intake/output data recorded. CONSTITUTIONAL: awake, alert, cooperative, no apparent distress HEENT: No scleral icterus, EOMI NECK: Supple, no thyromegaly LUNGS: No increased work of breathing, good air exchange CARDIOVASCULAR: Well perfused, RRR ABDOMEN: Soft, non-distended, mildly tender in RUQ, no peritoneal signs, steri strips removed, surgical incisions are C/D/I GENITAL/URINARY: Not examined MUSCULOSKELETAL: There is no redness, warmth, or swelling of the joints. Full range of motion noted. NEUROLOGIC: Awake, alert, oriented to name, place and time. SKIN: normal skin color, texture, no redness, warmth, or swelling DATA: CBC: Lab Results Component Value Date WBC 12.0 (H) 05/19/2023 RBC 4.52 05/19/2023 HGB 10.1 (L) 05/19/2023 HCT 32.6 (L) 05/19/2023 MCV 72.1 (L) 05/19/2023 MCH 22.3 (L) 05/19/2023 MCHC 31.0 05/19/2023 RDW 16.9 (H) 05/19/2023 PLT 398 05/19/2023 MPV 10.6 05/19/2023 BMP: Lab Results Component Value Date NA 135 05/19/2023 K 3.9 05/19/2023 CL 104 05/19/2023 CO2 20 (L) 05/19/2023 BUN 4 (L) 05/19/2023 CREATININE 0.61 05/19/2023 CALCIUM 9.1 05/19/2023 GLUCOSE 94 05/19/2023 Hepatic Function Panel: Lab Results Component Value Date ALKPHOS 61 05/19/2023 ALT 33 05/19/2023 AST 28 05/19/2023 PROT 7.5 05/19/2023 BILITOT 0.8 05/19/2023 PT/INR: No results found for: PROTIME, INR Troponin: No results found for: TROPONINI LIPASE: Lab Results Component Value Date LIPASE 493 (H) 05/19/2023 IMAGING: CT abdomen pelvis w contrast Narrative: Patient Name: ANNE MARIE PETERSON : 1995 [facility]#: [id number] Exam Date/Time: 05/19/2023 18:37 Procedure: CT ABDOMEN PELVIS W CONTRAST Ordering Provider: HAMILTON BRIGID Reason For Exam: upper abd pain status post gastric bypass on 05/10/23 CT ABDOMEN AND PELVIS WITH CONTRAST CLINICAL INDICATION: upper abd pain status post gastric bypass on 05/10/23 TECHNIQUE: CT scan of the abdomen and pelvis, with IV contrast. Oral contrast administered. Multiplanar reformations. Dose reduction was employed with automated exposure control. COMPARISON: None. FINDINGS: Abdomen: Visualized lung bases grossly unremarkable. Gallbladder surgically absent. Postsurgical changes of gastric bypass. Liver enlarged measuring 20 cm in maximum craniocaudal dimension and shows diffusely decreased attenuation. Small hypodensity adjacent to gallbladder fossa measuring 1.3 cm may represent cyst or hemangioma, but nonspecific. Mildly hyperdense or complex perihepatic fluid or blood measuring up to 1.5 cm in thickness, which extends caudally along the bilateral paracolic gutters and into the pelvis (Hounsfield unit around the liver = 48; pelvis = 43). Very small teardrop shaped focus of similar density in the lesser sac adjacent to the anastomosis site may represent stable. Spleen without significant abnormality. Pancreas without significant abnormality. Kidneys without significant abnormality. Adrenal glands without significant abnormality. Pelvis: Remainder of bowel grossly unremarkable, with contrast material extending through to the rectosigmoid colon. No apparent contrast extravasation or evidence of mechanical obstruction. Possible diminutive appendix or appendiceal remnant partially visualized and grossly unremarkable. No discrete abscess or apparent adenopathy. Abdominal aorta is nonaneurysmal. IUD noted in the uterus. Axial skeleton grossly intact. Small, fat-containing umbilical hernia, with mild soft tissue stranding probably postsurgical change or residual. Impression: 1. Mildly hyperdense or complex fluid noted about the liver and extending caudally intothe pelvis suspicious for blood products and hemoperitoneum. Clinical correlation and follow-up as indicated. 2. Status post gastric bypass without evidence of oral contrast extravasation or mechanical obstruction. 3. Hepatosplenomegaly, and findings compatible with hepatic steatosis; small hypodensity adjacent to gallbladder fossa possibly representing cyst or hemangioma, but nonspecific. Follow-up as indicated. Critical Test Results: Results were discussed with Dr. Hamilton in the ED on August, at 1912hours. Report Dictated on Electronically Signed By: Sarath Zurita MD Electronically Signed Date/Time: 05/19/2023 7:15 PM EDT ECG 12 lead Sinus rhythm Borderline T abnormalities, inferior leads ASSESSMENT AND PLAN: This is a 27 y.o. female s/p LRYGB 05/10/23 now presenting for abdominal pain CT imaging consistent with small amount of blood around liver and within pelvis. However patient ishemodynamically stable, Hgb is 10.1 (from 11.4 8 days ago) with benign abdominal exam. - No need for urgent surgical intervention at this point - Will admit for observation - IVFs - Will make NPO and hold Lovenox tonight - Prn pain and nausea medication - AM labs Patient discussed with attending, Dr. Worthy integration engineer for Dr. Shannan Rich MD General Surgery PGY-3 Pager # [phone] documented in this [facility]03-27-2024 Emergency department Note* Lucy Castano RN - 05/19/2023 8:58 PM EDT Report called to KATALINA Saldivar at [facility] ED [facility] ETA 2130 Lucy Castano RN 05/19/232058 [id number] Emergency department Note* Helen Mccarthy RN - 05/19/2023 5:57 PM EDT Patient ambulatory to the restroom at this time using cane and S/O at side. Patient tolerated well,maintaining steady gait. Urine specimen to be collected. Helen Mccarthy RN 05/19/231756 [id number] Emergency department Note* Helen Mccarthy RN - 05/19/2023 5:43 PM EDT This RN spoke with patient at this time per business technology analyst. Patient reports no chance of and reports a negative test at another facility yesterday. Helen Mccarthy RN 05/19/23 1758 [id number] Physician Emergency department Note* Shauna Hamilton DO - 05/19/2023 1:55 PM EDT EMERGENCY DEPARTMENT ENCOUNTER Pt Name: Anne Marie Peterson Birthdate 1995 Date of evaluation: 05/19/2023 ED Provider: Shauna Hamilton DO CHIEF COMPLAINT Chief Complaint Patient presents with Post-op Problem Pt presents to ED with c/o epigastric abdominal that is intermittent sharp, shooting, chills, and feels like heart is racing. States that she was seen in ED yesterday and everything was normal. States she just had gastric bypass surgery 9 days ago. HISTORY OF PRESENT ILLNESS (Location/Symptom, Timing/Onset, Context/Setting, Quality, Duration, Modifying Factors, Severity) Note limiting factors. I wore appropriate PPE for the entirety of this encounter. HPI Anne Marie Peterson is a 27 y.o. who presents to the emergency department with chief complaint of upperabdominal pain after Sandra-en-Y gastric bypass on 05/10/[address] Campbell at [facility]. States she was seen at outside hospital yesterday had a CT done showing some fluid around her liver but records not transferred here. Was prescribed a second round of Percocet for pain control. She states that they did not discuss with her surgeon at that time. She is supposed to follow-up with her surgeon tomorrow. She is also been having episodes of heart racing and some sharp pains in the upper abdomen. She states that she is taking Lovenox still. Nursing Notes were reviewed. Limitations to history: None Outside historians: Significant other REVIEW OF SYSTEMS Review of Systems Constitutional: Negative for fever. Cardiovascular: Positive for palpitations. Gastrointestinal: Positive for abdominal pain. Pertinent positives and negatives as per HPI. PAST MEDICAL HISTORY Past Medical History: Diagnosis Date Anemia Atrial fibrillation (HCC) 2 episodes Back pain COVID-19 vaccine series completed 10/2020 Daytime sleepiness SANTOS (dyspnea on exertion) Fatigue History of kidney stones History of UTI Incontinence Joint pain, knee PTSD (post-traumatic stress disorder) Sleep apnea, obstructive uses cpap SURGICAL HISTORY Past Surgical History: Procedure Laterality Date COLONOSCOPY HERNIA REPAIR 1999 Dr. Memo Duke / [facility] - inguinal hernia LAP GASTRIC BYPASS/SANDRA-EN-Y (HISTORICAL) 05/10/2023 LRYGB - Dr. Campbell LAP,CHOLECYSTECTOMY (HISTORICAL) 2009 Dr. [facility] UPPER GASTROINTESTINAL ENDOSCOPY CURRENT MEDICATIONS Previous Medications COLESTIPOL (COLESTID) 1 G TABLET Take 1 g by mouth Daily as needed. CYANOCOBALAMIN (VITAMIN B-12) [address] 1 Dose under the tongue daily. ENOXAPARIN (LOVENOX) 60 MG/0.6ML SOLUTION PREFILLED SYRINGE Inject 0.6 mL (60 mg) under the skin inthe morning and 0.6 mL (60 mg) in the evening. Do all this for 14 days. Inject 0.6 mLs into skin 2 times daily for 14 days.. FERROUS SULFATE 325 (65 FE) MG TABLET Take 1 tablet (325 mg) by mouth 2 times daily. MAGNESIUM 30 MG TABLET Take 30 mg by mouth 2 times daily. METOPROLOL SUCCINATE XL (TOPROL-XL) 25 MG 24 HR TABLET Take 1 tablet (25 mg) by mouth daily. OMEPRAZOLE (PRILOSEC) [address] CAPSULE Take 1 capsule (20 mg) by mouth daily. Do not crush or chew. RESPIRATORY THERAPY SUPPLIES (CARETOUCH 2 CPAP HOSE PRODUCE SHIPPER) MISC 10 cm h20 VITAMIN D, CHOLECALCIFEROL, PO Take by mouth daily. ALLERGIES Patient has no known allergies. FAMILY HISTORY Family History Problem Relation Name Age of Onset Cancer Mother Hypertension Mother Obesity Mother Heart disease Father Obesity Father Cancer Maternal Grandmother Heart disease Maternal Grandmother Stroke Maternal Grandfather Hypertension Maternal Grandfather Heart disease Maternal Grandfather Diabetes Maternal Grandfather Obesity Maternal Grandfather Anesthesia problems Maternal Grandfather SOCIAL HISTORY Social History Socioeconomic History Marital status: Significant Other Tobacco Use Smoking status: Never Smokeless tobacco: Never Vaping Use Vaping Use: Never used Substance and Sexual Activity Alcohol use: Not Currently Drug use: Never Sexual activity: Yes Partners: Male control/protection: I.U.D. SCREENINGS PHYSICAL EXAM ED Triage Vitals [05/19/23 1358] Temp Heart Rate Resp BP (!) 35.7 C (96.2 F) 105 18 (!) 155/84 SpO2 Temp Source Heart Rate Source Patient Position 98 % Temporal Monitor -- BP Location FiO2 (%) -- -- Physical Exam Vitals and nursing note reviewed. Constitutional: General: She is not in acute distress. Appearance: She is well-developed. She is obese. HENT: Head: Normocephalic and atraumatic. Eyes: Conjunctiva/sclera: Conjunctivae normal. Cardiovascular: Rate and Rhythm: Normal rate and regular rhythm. Heart sounds: No murmur heard. Pulmonary: Effort: Pulmonary effort is normal. No respiratory distress. Breath sounds: Normal breath sounds. Abdominal: Palpations: Abdomen is soft. Tenderness: There is abdominal tenderness. There is no guarding or rebound. Musculoskeletal: General: No swelling. Cervical back: Neck supple. Skin: General: Skin is warm and dry. Comments: Wearing abdominal binder when removed incision sites are well-healing no evidence of skininfection. Neurological: Mental Status: She is alert. Psychiatric: Mood and Affect: Mood normal. DIAGNOSTIC RESULTS Procedures/EKG: EKG was reviewed by myself. Physician EKG interpretation can be found in [facility] RADIOLOGY (Per Emergency Physician): Interpretation per the Radiologist below, if available at the time of this note: CT abdomen pelvis w contrast Final Result 1. Mildly hyperdense or complex fluid noted about the liver and extending caudally into the pelvis suspicious for blood products and hemoperitoneum. Clinical correlation and follow-up as indicated. 2. Status post gastric bypass without evidence of oral contrast extravasation or mechanical obstruction. 3. Hepatosplenomegaly, and findings compatible with hepatic steatosis; small hypodensity adjacent to gallbladder fossa possibly representing cyst or hemangioma, but nonspecific. Follow-up as indicated. Critical Test Results: Results were discussed with Dr. Hamilton in the ED on August, at 1912hours. Report Dictated on Electronically Signed By: Sarath Zurita MD Electronically Signed Date/Time: 05/19/2023 7:15 PM EDT ED BEDSIDE ULTRASOUND: Performed by ED Physician - none LABS: Labs Reviewed CBC WITH AUTO DIFFERENTIAL - Abnormal Result Value Auto WBC 12.0 (*) RBC 4.52 Hemoglobin 10.1 (*) Hematocrit 32.6 (*) MCV 72.1 (*) MCH 22.3 (*) MCHC 31.0 RDW 16.9 (*) Platelets 398 MPV 10.6 nRBC 0.0 Neutrophils Relative 73.0 Lymphocytes Relative 16.4 Monocytes Relative 8.3 Eosinophils Relative 0.9 Basophils Relative 0.3 Immature Grans % 1.1 Neutrophils Absolute 8.8 (*) Lymphocytes Absolute 2.0 Monocytes Absolute 1.0 (*) Eosinophils Absolute 0.1 Basophils Absolute 0.0 Immature Grans Absolute 0.1 (*) COMPREHENSIVE METABOLIC PANEL - Abnormal SODIUM 135 POTASSIUM 3.9 CHLORIDE 104 CARBON DIOXIDE 20 (*) ANION GAP 11 UREA NITROGEN 4 (*) CREATININE 0.61 GLUCOSE 94 CALCIUM 9.1 AST (SGOT) 28 ALT 33 ALKALINE PHOSPHATASE 61 ALBUMIN 3.9 BILIRUBIN, TOTAL 0.8 TOTAL PROTEIN 7.5 eGFR >90.0 LIPASE - Abnormal LIPASE 493 (*) COMPLETE URINALYSIS - Abnormal Color, Urine Light Yellow Clarity, Urine Turbid (*) pH, Urine 6.0 Leukocytes, Urine Negative Nitrite, Urine Negative Protein, Urine 20 (*) Glucose, Urine Normal Bilirubin, Urine Negative Ketones, Urine 150 (*) Urobilinogen, Urine Normal Blood, Urine 0.03 (*) RBC, Urine 0-2 WBC, Urine 0-2 Squamous Epithelial, Urine 0-2 Bacteria, Urine Few (*) Mucus, Urine Few Calcium Carbonate Crystals, Urine Many (*) Amm Biurate Crystals, Urine Few (*) SPECIFIC GRAVITY OF URINE (NUMERIC) 1.012 LACTIC ACID WITH REFLEX - Normal LACTIC ACID 0.7 COMPLETE URINALYSIS WITH REFLEX TO CULTURE Narrative: The following orders were created for panel order Urinalysis Complete with reflex to Culture. Procedure Abnormality Status --------- ------ Complete Urinalysis[[id number]] Abnormal Final result Please view results for these tests on the individual orders. HCG QUALITATIVE URINE HCG,URINE QUAL Negative Narrative: is the most common reason for HCG in urine, although choriocarcinoma, hydatidiform mole, and certain nontrophoblastic malignancies also result in detectable urinary HCG levels. Sensitivity = 20mIU/mL. All other labs were within normal range or not returned as of this dictation. EMERGENCY DEPARTMENT COURSE and DIFFERENTIAL DIAGNOSIS/MDM: Vitals: Vitals: 05/19/23 1358 05/19/23 1358 05/19/23 1749 BP: (!) 155/84 128/85 Pulse: 105 98 Resp: 18 16 Temp: (!) 35.7 C (96.2 F) TempSrc: Temporal SpO2: 98% 99% Weight: (!) 172 kg (380 lb) ED Course as of 05/21/23 1052 WedMay 19, 2023 1510 Status post gastric bypass 05/10/23 with upper abd pain. Seen yesterday outside ED. Taking percocet. Reports chills and heart racing. [BM] 1606 CBC showing a mild leukocytosis to 12 which is downtrending from her admission a week ago at 15. Lactic acid within normal limits. Lipase somewhat elevated at 493. [BM] 1607 CMP largely unremarkable. [BM] ED Course User Index [BM] Shauna Hamilton, Diagnoses as of 05/21/23 1052 Hemoperitoneum Morbid obesity with BMI of 60.0-69.9, adult (HCC) EMERGENCY DEPARTMENT COURSE and DIFFERENTIAL DIAGNOSIS/MDM: Vitals: Vitals: 05/19/23 1358 05/19/23 1358 05/19/23 1749 BP: (!) 155/84 128/85 Pulse: 105 98 Resp: 18 16 Temp: (!) 35.7 C (96.2 F) TempSrc: Temporal SpO2: 98% 99% Weight: (!) 172 kg (380 lb) The patient presented with a chief complaint of upper abdominal pain status post gastric bypass surgery on 05/10/2023. The differential diagnosis associated with this patient's presentation includes postsurgical complication, gastritis, hepatitis, bowel obstruction, pancreatitis. Our workup consisted of ordering/reviewing CBC, CMP, lipase, urinalysis, CT abdomen pelvis with contrast. ED Course as of 05/21/23 1052 WedMay 19, 2023 1510 Status post gastric bypass 05/10/23 with upper abd pain. Seen yesterday outside ED. Taking percocet. Reports chills and heart racing. [BM] 1606 CBC showing a mild leukocytosis to 12 which is downtrending from her admission a week ago at 15. Lactic acid within normal limits. Lipase somewhat elevated at 493. [BM] 1607 CMP largely unremarkable. [BM] ED Course User Index [BM] Shauna Hamilton DO Diagnoses as of 05/21/23 1052 Hemoperitoneum Morbid obesity with BMI of 60.0-69.9, adult (HCC) External records reviewed: Inpatient notes records reviewed from 05/10/[address] Campbell for gastric bypass surgery underwent laparoscopic Sandra-en-Y gastric bypass and had UGI on postop day 1 and bariatricclear liquid diet was subsequently started at time of discharge patient was ambulating independently and having bowel function. Diagnostics interpreted by me: CT scan(s) hemoperitoneum noted around the liver Discussions with other clinicians: Enrobing Machine Feeder spoke with the radiologist who relayed CT report to me. Spoke with Dr. Campbell patient surgeon who recommended transfer to [facility] for further evaluation by general surgery. Chronic conditions impacting care: Hypertension and hyperlipidemia, hepatic steatosis Social determinants of health affecting care: none ED Medications managed: Medications ondansetron (Zofran) injection 4 mg (4 mg IntraVENous Given 05/19/23 1530) morphine injection 4 mg (4 mg IntraVENous Given 05/19/23 1530) sodium chloride 0.9 % bolus 500 mL (0 mL IntraVENous Stopped 05/19/23 1631) diatrizoate meglumine-sodium (Gastrografin) 66-10 % solution 30 mL (30 mL Oral Given 05/19/23 1530) iopamidol (Isovue-370) 76 % injection 75 mL (75 mL IntraVENous Given 05/19/23 1835) Medications ondansetron (Zofran) injection 4 mg (4 mg IntraVENous Given 05/19/23 1530) morphine injection 4 mg (4 mg IntraVENous Given 05/19/23 1530) sodium chloride 0.9 % bolus 500 mL (0 mL IntraVENous Stopped 05/19/23 1631) diatrizoate meglumine-sodium (Gastrografin) 66-10 % solution 30 mL (30 mL Oral Given 05/19/23 1530) iopamidol (Isovue-370) 76 % injection 75 mL (75 mL IntraVENous Given 05/19/23 1835) REVAL: Updated patient, vital signs remained stable, hemoglobin stable at 10.1. Will transfer to [facility] for evaluation by surgery. CRITICAL CARE TIME FINAL IMPRESSION 1. Hemoperitoneum DISPOSITION Transfer To [facility] 05/19/2023 07:40:02 PM PATIENT REFERRED TO: No follow-up provider specified. DISCHARGE MEDICATIONS: New Prescriptions No medications on file (Comment: Please note this report has been produced using speech recognition software and may contain errors related to that system including errors in grammar, punctuation, and spelling, as well as words and phrases that may be inappropriate. If there are any questions or concerns please feel freeto contact the dictating provider for clarification.) Shauna Hamilton DO (electronically signed) Emergency Medicine Provider Shauna Hamilton DO 05/19/231940 [facility] [id number] Telephone encounter Note* Telephone Encounter - Balwinder Lam RN - 05/18/2023 12:25 PM EDT S: Patient spoke with [facility] nurse regarding dizziness B: Onset of symptoms/concern 05/10/23 gastric bypass A: Pt c/o cold sweats, dizzy, in pain, light headed. Medical records reviewed. Pt went to [facility] ED in [place] today. Blood pressure was extremely low there 95/40, she has been drinking a lot of water since leaving. Dizziness persistent, with activity and when sitting still. Poor tolerance to standing, only stands for 1-2 minutes at a time. ED recommended follow up recommended 3-5 days, Still on clear liquids, has had any sugar and calories since day before her surgery. Blood glucose was 202 at ED. Pt did pass out in the ED, they gave her two bags of IV fluids. Pt is not worse ordifferent that when she was seen at the ED. R: Message sent to provider for review and recommendation. Confirmed pt's 1 week post op appt is 05/20/23 at 7:10 am with . Patient understands care advice. No further needs at this time.Patient instructed to call back with new or worsening symptoms. Reason for Disposition MODERATE dizziness (e.g., interferes with normal activities) (Exception: Dizziness caused by heat exposure, sudden standing, or poor fluid intake.) Protocols used: [id number] [facility] [id number] Miscellaneous Notes* Telephone Encounter - Balwinder Lam RN - 05/18/2023 12:25 PM EDT S: Patient spoke with [facility] nurse regarding dizziness B: Onset of symptoms/concern 05/10/23 gastric bypass A: Pt c/o cold sweats, dizzy, in pain, light headed. Medical records reviewed. Pt went to [facility] ED in [place] today. Blood pressure was extremely low there 95/40, she has been drinking a lot of water since leaving. Dizziness persistent, with activity and when sitting still. Poor tolerance to standing, only stands for 1-2 minutes at a time. ED recommended follow up recommended 3-5 days, Still on clear liquids, has had any sugar and calories since day before her surgery. Blood glucose was 202 at ED. Pt did pass out in the ED, they gave her two bags of IV fluids. Pt is not worse ordifferent that when she was seen at the ED. R: Message sent to provider for review and recommendation. Confirmed pt's 1 week post op appt is 05/20/23 at 7:10 am with . Patient understands care advice. No further needs at this time.Patient instructed to call back with new or worsening symptoms. Reason for Disposition MODERATE dizziness (e.g., interferes with normal activities) (Exception: Dizziness caused by heat exposure, sudden standing, or poor fluid intake.) Protocols used: [id number] documented in this encounterSDayton VA Medical [id number] Telephone encounter Note* Telephone Encounter - SUZANNA Lyons - 05/12/2023 3:23 PM EDT tamara Tirado [facility] [id number] Miscellaneous Notes* Telephone Encounter - SUZANNA Lyons - 05/12/2023 3:23 PM EDT tamara Tirado * Telephone Encounter - Zully Anton RN - 05/12/2023 1:15 PM EDT The patient states that she has a purple/red lump that is hot to touch on her arm. She states the lump is near the area she was given Lovenox injections while hospitalized The area of the lump is painful when touched but she does not have pain throughout the arm. She has normal range of motion and has good grasp. . She has not applied ice or heat to the area. She denies having any trouble breathing, chest pain or pressure. She denies pain or swelling in any other extremities. The patient is otherwise doing well postop. Her pain is well managed. She is tolerating clear liquids 1 oz every 15 minutes. No nausea, vomiting or dysphagia. She is afebrile with no concern for incisional infection. She is walking frequently and using her incentive spirometer. She is urinating freq uently, has not had a bowel movement but is passing gas. She has started her daily omeprazole and will begin her home Lovenox injections tonight. Reviewed follow up appointment information and when and how to contact [facility] with the patient who verbalized understanding. No other questions or concerns at this time. * Telephone Encounter - Balwinder Weeks RN - 05/12/2023 10:47 AM EDT DOS 05/10/23 LRYGB JZ Last OV-prior to surgery Will route to [facility] for follow up * Telephone Encounter - Marge Flowers RN - 05/12/2023 9:09 AM EDT S: Patient spoke with [facility] nurse regarding post op concern B: had LAPAROSCOPIC SANDRA-EN-Y GASTRIC BYPASS WITH LIVER WEDGE BIOPSY done on 05/10/23 A: Patient complaints of lump on left upper arm. Patient with quarter sized purple colored lump on arm. Site is tender and warm to touch. Rates pain 1/10. Patient is able to move arm, but it is sore.Patient does report Lovenox being injected into that arm during hospital stay, but feels lump is lower than injection site. Post op pain is controlled since using oxycodone- acetaminophen. Patient unsure if lump could be blood clot or not. Denies fever, chest pain, difficulty breathing, leg pain/swelling, rash, dizziness, vomiting, headache. R: patient made aware of callback. Advised to call back with new or worsening symptoms. HP TE sent to office for review and follow up. Please advise on above symptoms and if OV is needed. Reason for Disposition Caller has NON-URGENT question and triager unable to answer question Protocols used: Post-Op Symptoms and [id number] documented in this encounterSDayton VA Medical [id number] Telephone encounter Note* Telephone Encounter - Zully Anton RN - 05/12/2023 1:15 PM EDT The patient states that she has a purple/red lump that is hot to touch on her arm. She states the lump is near the area she was given Lovenox injections while hospitalized The area of the lump is painful when touched but she does not have pain throughout the arm. She has normal range of motion and has good grasp. . She has not applied ice or heat to the area. She denies having any trouble breathing, chest pain or pressure. She denies pain or swelling in any other extremities. The patient is otherwise doing well postop. Her pain is well managed. She is tolerating clear liquids 1 oz every 15 minutes. No nausea, vomiting or dysphagia. She is afebrile with no concern for incisional infection. She is walking frequently and using her incentive spirometer. She is urinating freq uently, has not had a bowel movement but is passing gas. She has started her daily omeprazole and will begin her home Lovenox injections tonight. Reviewed follow up appointment information and when and how to contact [facility] with the patient who verbalized understanding. No other questions or concerns at this time. [facility] [id number] Telephone encounter Note* Telephone Encounter - Balwinder Weeks RN - 05/12/2023 10:47 AM EDT DOS 05/10/23 LRYGB JZ Last OV-prior to surgery Will route to [facility] for follow up [facility] [id number] Telephone encounter Note* Telephone Encounter - Marge Flowers RN - 05/12/2023 9:09 AM EDT S: Patient spoke with [facility] nurse regarding post op concern B: had LAPAROSCOPIC SANDRA-EN-Y GASTRIC BYPASS WITH LIVER WEDGE BIOPSY done on 05/10/23 A: Patient complaints of lump on left upper arm. Patient with quarter sized purple colored lump on arm. Site is tender and warm to touch. Rates pain 1/10. Patient is able to move arm, but it is sore.Patient does report Lovenox being injected into that arm during hospital stay, but feels lump is lower than injection site. Post op pain is controlled since using oxycodone- acetaminophen. Patient unsure if lump could be blood clot or not. Denies fever, chest pain, difficulty breathing, leg pain/swelling, rash, dizziness, vomiting, headache. R: patient made aware of callback. Advised to call back with new or worsening symptoms. HP TE sent to office for review and follow up. Please advise on above symptoms and if OV is needed. Reason for Disposition Caller has NON-URGENT question and triager unable to answer question Protocols used: Post-Op Symptoms and [id number] [facility] [id number] Hospital course Narrative* Amber Espinoza MD - 05/11/2023 3:02 PM EDT Images from the original note were not included. Discharge Summary Anne Marie Peterson : 1995 ADMIT DATE: 05/10/2023 DISCHARGE DATE: 05/11/23 ATTENDING PHYSICIAN: Memo Campbell MD VISIT STATUS: Admission CODE STATUS: Full Code DISCHARGE DIAGNOSES: Principal Problem: Morbid obesity with BMI of 60.0-69.9, adult ([facility]) Active Problems: Prediabetes Mixed hyperlipidemia MOE on CPAP Hypertension Hepatic steatosis BMI Classification: Estimated body mass index is 65.45 kg/m as calculated from the following: Height as of this encounter: 5' 6 (1.676 m). Weight as of this encounter: 405 lb 8 oz (184 kg). Morbidly Obese (>40.0) HOSPITAL COURSE: Anne Marie Peterson is a 27 y.o. female who presented to [facility] on 05/10/2023 for elective bariatric surgical procedure. This patient underwent a Laparoscopic Sandra-en-Y Gastric Bypass on the day of admission. An UGI was obtained POD #1 and bariatric clear liquid diet was subsequently started. The patient met with bariatric nursing team and was informed thoroughly regarding goals and objectives going forward regarding bariatric protocol and expectations. They were prepared for discharge POD #1 At the time of discharge patient's vital signs were within normal limits. Patient was voiding spontaneously, tolerating a diet, ambulating independently and having bowel function. Patient's pain was controlled with PO pain meds. Pt was discharged with instructions as follows. CONSULTANTS: none SIGNIFICANT DIAGNOSTIC STUDIES: Upper GI contrast study showing no extravasation or obstruction DISCHARGE MEDICATIONS: Medication List START taking these medications ondansetron 4 MG tablet Commonly known as: Zofran Take 1 tablet (4 mg) by mouth every 8 hours as needed for nausea or vomiting for up to 5 days. oxyCODONE-acetaminophen 5-325 MG tablet Commonly known as: Percocet Take 1 tablet by mouth every 6 hours as needed for severe pain (7-10) for up to 5 days. CONTINUE taking these medications Careuch 2 CPAP Hose [facility] colestipol 1 g tablet Commonly known as: Colestid enoxaparin 60 MG/0.6ML solution prefilled syringe Commonly known as: Lovenox Inject 0.6 mL (60 mg) under the skin in the morning and 0.6 mL (60 mg) in the evening. Do all this for 14 days. Inject 0.6 mLs into skin 2 times daily for 14 days.. magnesium 30 MG tablet metoprolol succinate XL 25 MG 24 hr tablet Commonly known as: Toprol-XL Take 1 tablet (25 mg) by mouth daily. omeprazole [address] capsule Commonly known as: PriLOSEC Take 1 capsule (20 mg) by mouth daily. Do not crush or chew. Vitamin B-12 500 MCG sublingual tablet VITAMIN D (CHOLECALCIFEROL) PO STOP taking these medications cephalexin 500 MG capsule Commonly known as: Keflex ASK your doctor about these medications ferrous sulfate 325 (65 Fe) MG tablet Take 1 tablet (325 mg) by mouth 2 times daily. Where to Get Your Medications These medications were sent to [facility] [address] [place] [address] Hours: Wednesday to Wednesday 10 am to 6 pm ondansetron 4 MG tablet oxyCODONE-acetaminophen 5-325 MG tablet DIET: Bariatric Diet Protocol with Clears, instruction for continued diet included in discharge instructions. ACTIVITY: No driving while on narcotic pain medication. No heavy lifting. No strenuous activity. Instructions to proceed will be provided during outpatient follow up. WOUND CARE: keep wound clean and dry DISPOSITION: Home FACILITY/HOME CARE AGENCY NAME: N/A Follow up with: Memo Campbell MD in 1-2 weeks PCP: Xenia Lane in 1-2 weeks SIGNED: Amber Espinoza MD This note may have been dictated using [employer] Medical Practice Edition 2.6 and/or Personalis Voice Recognition Feature. The document was proofread; however, unrecognized voice recognition sheet metal roofer errors may be present. documented in this [facility]03-19-2024 History of Present illness Narrative* Zully Anton RN - 05/11/2023 1:01 PM EDT Bariatric medical tech Note POD #1-PM S/P RYGB Patient doing well. Tolerating liquids per protocol: yes Nausea/Vomiting: no If yes, actions taken: Dysphagia: no Vital signs stable. Adequate urine output: Yes Surgical incisions well approximated, dry and without redness. steri-strips LLQ incision with packing in place: Yes If Yes: Packing removed and dry dressing applied to site. Patient tolerated well. Bowel movement: No If yes- description: Patient on room air: Yes Patient ambulating: yes Pain adequately controlled: Yes If no, actions taken: Current treatment: percocet Pain level 1-10: 3 Anticipate discharge: today BARIATRIC INTELLIGENCE RESEARCH SPECIALIST DISCHARGE NOTE Verbal and written discharge instructions (including office/after hours contact numbers) reviewed with patient and spouse. Reviewed diet, activity, home meds, incision care and signs and symptoms of DVT/PE and leak. Patient and family taught regarding home Lovenox administration: yes. Patient understands verbal and written information given, all questions answered. Patient is and lives with spouse. Has supportive family who will assist with dc needs at home. Patient independent with ADL s prior to admission. Patient verbalizes understanding of information provided. * Zully Anton RN - 05/11/2023 9:38 AM EDT Bariatric Reel Blade Bender Furnace Tender Note POD#1- AM S/P LRYGB UGI Done Extravasation: yes Delayed gastric emptying: No Begin Bariatric Clear Liquid diet: No Diet protocol of one ounce every 30 minutes reviewed with patient Vital signs stable. Adequate urine output: Yes Abdomen soft, non-distended Bowel sounds: hypoactive Surgical incisions well approximated. No redness or drainage steri-strips LLQ incision with packing in place: Yes. Packing removed and new packing placed. Clean, dry dressing applied. Patient tolerated the procedure well. Instructed patient on ambulating in halls at least three times a day and hourly use of incentive spirometer. Patient aware to ask for assistance as needed. Call light in reach. SCDs to bilateral lower extremities while in bed. Pain control: Oral pain medication initiated: percocet Home medications reviewed. Will monitor patients tolerance to liquids and oral pain medication. Interventions: No If yes: * Sejal Reynolds - 05/11/2023 7:39 AM EDT Preliminary negative for leak. * Christy Lopez MD - 05/11/2023 6:31 AM EDT Images from the original note were not included. [facility] - Surgery Bariatric Care [facility] Patient Name: Anne Marie Peterson Date: 05/11/23 MIS-General Surgery/Bariatric Progress Note Subjective: The patient is doing well, postoperative day #1 from LRYGB. No nausea, vomiting, or adverse events overnight. Feeling well. Scheduled Meds:albuterol, 2.5 mg, Nebulization, BID enoxaparin, 40 mg, SubCUTAneous, BID ketorolac, 15 mg, IntraVENous, 3 times per day lactated ringers, 1,000 mL, IntraVENous, Once metoprolol succinate XL, 25 mg, Oral, Daily pantoprazole, 40 mg, IntraVENous, Daily sodium chloride 0.9%, 10 mL, IntraVENous, 2 times per day Continuous Infusions:dextrose 5 % and sodium chloride 0.45 % with KCl 20 mEq/L, 100 mL/hr, Last Rate: 100 mL/hr (05/10/232134) PRN Meds:PRN medications: HYDROmorphone OR HYDROmorphone, hydrOXYzine HCl, labetalol, naloxone,ondansetron ODT OR ondansetron, oxyCODONE-acetaminophen, sodium chloride, sodium chloride 0.9% No Known Allergies Objective: Patient Vitals for the past 24 hrs: BP Temp Temp src Pulse Resp SpO2 Height Weight 05/11/23 0500 124/83 36.2 C (97.2 F) Temporal 72 20 95 % -- -- 05/10/232116 -- -- -- -- -- -- 1.676 m (5' 6) (!) 184 kg (405 lb 8 oz) 05/10/232112 151/97 36.4 C (97.6 F) Temporal 74 18 96 % -- -- 05/10/23 1900 (!) 136/96 -- -- 84 16 93 % -- -- 05/10/23 1830 (!) 150/99 -- -- 89 17 95 % -- -- 05/10/23 1800 (!) 151/97 -- -- 90 19 98 % -- -- 05/10/23 1745 (!) 148/100 -- -- 87 18 -- -- -- 05/10/23 1730 (!) 143/95 -- -- 91 18 98 % -- -- 05/10/23 1715 (!) 138/99 -- -- 86 16 -- -- -- 05/10/23 1655 (!) 143/92 37.3 C (99.2 F) Temporal 97 16 97 % -- -- 05/10/23 1158 (!) 153/87 36.6 C (97.9 F) Temporal 87 16 97 % -- (!) 183 kg (403 lb 14.4 oz) Average, Min, and Max for last 24 hours Vitals: TEMPERATURE: Temp Av.7 C (98 F) Min: 36.2 C (97.2 F) Max: 37.3 C (99.2 F) RESPIRATIONS RANGE: Resp Av.4 Min: 16 Max: 20 PULSE RANGE: Pulse Av.7 Min: 72 Max: 97 BLOOD PRESSURE RANGE: Systolic (24hrs), Av , Min:124 , Max:153 ; Diastolic (24hrs), Av, Min:83, Max:100 PULSE OXIMETRY RANGE: SpO2 Av.1 % Min: 93 % Max: 98 % I/O last 3 completed shifts: In: 1128 (6.2 mL/kg) [I.V.:1100 (6 mL/kg); IV Piggyback:28] Out: 17 (0.1 mL/kg) [Blood:17] Weight: 183.2 kg CBC: Recent Labs 05/10/23 1724 05/11/23 0206 WBC 20.2* 15.4* HGB 12.0 11.4* HCT 39.6 38.0 PLT 387 406 BMP: Recent Labs 05/10/23 1724 05/11/23 0206 NA 135 134* K 4.0 4.9 CL 100 100 CO2 23 22 BUN 11 10 CREATININE 0.68 0.52 GLUCOSE 162* 164* Abdomen: The abdomen was soft and appropriately tender postoperative. Nondistended. Incisions c/d/I. Packing in place LLQ Assessment/Plan: Postoperative day #1, LRYGB GI/DVT prophylaxis, continue SQ lovenox UGI this AM Increase activity Restart gastric bypass clear liquid diet if no signs of extravasation or leak on UGI Pulmonary toilet Initiate home medications, and oral pain control medications Electronically signed by Christy Lopez MD PGY-2, General Surgery Pager# [phone] 05/11/2023 6:31 AM Associated attestation - Memo Campbell MD - 05/11/2023 8:53 AM EDT Images from the original note were not included. [facility] - Surgery Bariatric Care Center Patient Name: Anne Marie Peterson Date: 05/11/23 MIS-General Surgery/Bariatric Progress Note Subjective: The patient is doing well, postoperative day #1 from LRYGB. No nausea, vomiting, or adverse events overnight. Scheduled Meds:albuterol, 2.5 mg, Nebulization, BID enoxaparin, 40 mg, SubCUTAneous, BID ketorolac, 15 mg, IntraVENous, 3 times per day metoprolol succinate XL, 25 mg, Oral, Daily pantoprazole, 40 mg, IntraVENous, Daily sodium chloride 0.9%, 10 mL, IntraVENous, 2 times per day Continuous Infusions:dextrose 5 % and sodium chloride 0.45 % with KCl 20 mEq/L, 100 mL/hr, Last Rate: 100 mL/hr (05/10/232134) PRN Meds:PRN medications: HYDROmorphone OR HYDROmorphone, hydrOXYzine HCl, labetalol, naloxone,ondansetron ODT OR ondansetron, oxyCODONE-acetaminophen OR oxyCODONE-acetaminophen, sodium chloride, sodium chloride 0.9% No Known Allergies Objective: Patient Vitals for the past 24 hrs: BP Temp Temp src Pulse Resp SpO2 Height Weight 05/11/23 0834 131/83 36.7 C (98.1 F) Temporal 71 17 91 % -- -- 05/11/23 0500 124/83 36.2 C (97.2 F) Temporal 72 20 95 % -- -- 05/10/232116 -- -- -- -- -- -- 5' 6 (1.676 m) (!) 405 lb 8 oz (184 kg) 03/18/24 2113 151/97 36.4 C (97.6 F) Temporal 74 18 96 % -- -- 05/10/23 1900 (!) 136/96 -- -- 84 16 93 % -- -- 05/10/23 1830 (!) 150/99 -- -- 89 17 95 % -- -- 05/10/23 1800 (!) 151/97 -- -- 90 19 98 % -- -- 05/10/23 1745 (!) 148/100 -- -- 87 18 -- -- -- 05/10/23 1730 (!) 143/95 -- -- 91 18 98 % -- -- 05/10/23 1715 (!) 138/99 -- -- 86 16 -- -- -- 05/10/23 1655 (!) 143/92 37.3 C (99.2 F) Temporal 97 16 97 % -- -- 05/10/23 1158 (!) 153/87 36.6 C (97.9 F) Temporal 87 16 97 % -- (!) 403 lb 14.4 oz (183 kg) Average, Min, and Max for last 24 hours Vitals: TEMPERATURE: Temp Av.7 C (98 F) Min: 36.2 C (97.2 F) Max: 37.3 C (99.2 F) RESPIRATIONS RANGE: Resp Av.4 Min: 16 Max: 20 PULSE RANGE: Pulse Av.4 Min: 71 Max: 97 BLOOD PRESSURE RANGE: Systolic (24hrs), Av , Min:124 , Max:153 ; Diastolic (24hrs), Av, Min:83, Max:100 PULSE OXIMETRY RANGE: SpO2 Av.6 % Min: 91 % Max: 98 % I/O last 3 completed shifts: In: 1128 (6.1 mL/kg) [I.V.:1100 (6 mL/kg); IV Piggyback:28] Out: 17 (0.1 mL/kg) [Blood:17] Weight: 183.9 kg CBC: Recent Labs 05/10/23 1724 05/11/23 0206 WBC 20.2* 15.4* HGB 12.0 11.4* HCT 39.6 38.0 PLT 387 406 BMP: Recent Labs 05/10/23 1724 05/11/23 0206 NA 135 134* K 4.0 4.9 CL 100 100 CO2 23 22 BUN 11 10 CREATININE 0.68 0.52 GLUCOSE 162* 164* Abdomen: Bowel sounds were normal. The abdomen was soft and appropriately tender postoperative. Nondistended. Wounds are clean dry and intact. Assessment/Plan: Postoperative day #1, LRYGB GI/DVT prophylaxis, continue SQ Lovenox UGI normal, no signs of extravasation or leak Increase activity Trial gastric bypass clear liquid diet Pulmonary toilet Initiate home medications, and oral pain control medications Care was discussed with the resident on service as well as the bariatric nurse case therapist. Memo Campbell MD 05/11/2023, 8:53 AM * Jennifer Hyde RCP - 05/11/2023 12:29 AM EDT [facility] Respiratory Care Department Progress Note As part of the Respiratory Assessment Program (RAP), the following Respiratory Therapist evaluationhas been completed, including a chart review and clinical/physical assessment. Respiratory Therapist RAP Evaluation Guideline Points 0 1 2 3 4 Points Strongly Consider History Factor No Pulmonary conditions Stable Pulmonary condition(s) Surgery or Intervention that may impact Pulmonary system (at risk) Surgery or Intervention that is impacting Pulmonary system Active Exacerbation of Pulmonary Condition 1 Respiratory Pattern Regular, RR= 12-18 SANTOS or Increased RR= 19-24 Irregular, or RR= 25-30 SOB, talk in short sentences, or RR= 31-35 Severe SOB, accessory muscle use, one word answers, or RR>35 0 Aerosol Med(s), High Flow O2 Breath Sounds Clear Diminished in 1 lobe Diminished in ? 2 lobes Adventitious breath sounds Coarse crackles, Wheezes, or Diminished in >2 lobes 1 Aerosol Med(s), Bronchial Hygiene, Hyperinflation Cough & Sputum Strong cough, no secretion retention or production Weak cough, no secretion retention or production Weak cough, w/ production (less often than Q2hr), or secretion retention No cough, w/ secretion retention or production (less often than Q2hr) Significant secretion production (more often than Q2hr) or mucus plug 0 Aerosol Med(s), Bronchial Hygiene, Hyperinflation Level of Activity Ambulatory Ambulatory with Assist Up in chair or edge of bed (dangle) Non-ambulatory, bedridden with active ROM Completely paralyzed or without active ROM 1 Triage 5 0-2 Triage 4 3-5 Triage 3 6-10 Triage 2 11-14 Triage 1 ?15 Total 3 Triage Score = 4 TRIAGE SCORING - SUGGESTED FREQUENCIES Aerosol Therapy Bronchial Hygiene Hyperinflation Triage Score Q4h & PRN 1 Q4hWA (QID) & PRN 2 TID & PRN 3 BID & PRN 4 PRN 5 Therapy(s) Indicated Yes/No Aerosol Medication Hyperinflation Bronchial Hygiene High Flow Oxygen Flow Rates PEF (L/Sec) IVC FVC FEV1 FEV1/FVC Comments: Thank you for involving Respiratory in the care of this patient, documented in this [facility]03-19-2024 Plan of care note* Care Plan - Elise Woodward RN - 05/11/2023 9:11 AM EDT Problem: Pain - Adult Goal: Verbalizes/displays adequate comfort level or baseline comfort level Outcome: Progressing Problem: Safety - Adult Goal: Free from fall injury Outcome: Progressing Problem: Discharge Planning Goal: Discharge to home or other facility with appropriate resources Outcome: Progressing Problem: Chronic Conditions and Co-morbidities Goal: Patient's chronic conditions and co-morbidity symptoms are monitored and maintained or improved Outcome: Progressing [id number] Miscellaneous Notes* Care Plan - Elise Woodward RN - 05/11/2023 9:11 AM EDT Problem: Pain - Adult Goal: Verbalizes/displays adequate comfort level or baseline comfort level Outcome: Progressing Problem: Safety - Adult Goal: Free from fall injury Outcome: Progressing Problem: Discharge Planning Goal: Discharge to home or other facility with appropriate resources Outcome: Progressing Problem: Chronic Conditions and Co-morbidities Goal: Patient's chronic conditions and co-morbidity symptoms are monitored and maintained or improved Outcome: Progressing * Perioperative Nursing Note - Jocelyn Sosa RN - 05/10/2023 5:32 PM EDT Labs drawn and sent to lab * Op Note - Memo Campbell MD - 05/10/2023 1:41 PM EDT Images from the original note were not included. [facility] - Surgery [facility] Physicians Surgery Patient Name: Anne Marie Peterson OPERATIVE NOTE DATE OF PROCEDURE: 05/10/2023 SURGEON: Memo Campbell MD MEDICAL INTERN: Christy Lopez MD PREOPERATIVE DIAGNOSIS: HTN MOE Prediabetes Hyperlipidemia Hepatic Steatosis Morbid Obesity POSTOPERATIVE DIAGNOSIS: HTN MOE Prediabetes Hyperlipidemia Hepatic Steatosis Morbid Obesity OPERATION: Laparoscopic Sandra-en-Y gastric bypass Laparoscopic Liver Biopsy Upper Gastrointestinal Endoscopy ANESTHESIA: General anesthesia ESTIMATED BLOOD LOSS: Minimal. COMPLICATIONS: None SPECIMENS: Liver Biopsy PREOPERATIVE MEDICATIONS: Ancef, Heparin HISTORY: The patient is a 27 y.o. year old female with history of morbid obesity and a BMI of Body mass index is 66.7 kg/m . CONSENT: The patient was seen and evaluated in the office setting where the procedure was explainedto the patient and any questions were answered. An informed consent discussion was held between and the patient. Viable alternatives to the proposed procedure, including but not limited to, medical observation under the care of a physician, exercise programs and other weight reductive operative procedures were explained to the patient. Risks to the proposed procedure, including butnot limited to hemorrhage requiring transfusion, infection, nerve injury, conversion to open, anastomotic disruption, anastomotic stricture, pneumonia, pulmonary embolus, airway complications, and were explained to the patient. The patient understands the above alternatives and risks and has electively chosen laparoscopic gastric bypass with sandra-en-y reconstruction and wishes to proceed. TECHNIQUE: The patient was taken to the operating room and placed in the supine position. After successful induction of general endotracheal anesthesia by the anesthesia department an orogastric tubewas placed to decompress the stomach. The patient was placed in the split leg lithotomy position and care was taken to pad the exposed extremities. The patient's abdomen was prepped and draped in thenormal sterile fashion. A 12-mm Optiview trocar was placed in the left subcostal position in the midclavicular line and access to abdominal cavity was obtained under visualization. Pneumoperitoneum was then established without complications. After evaluation of the abdominal contents from this trocar position, five other 12-mm ports were placed under direct visualization. One at the umbilicus, one 2-3 cm above the umbilicus, one at the subxyphoid area, one in the right subcostal margin in the midclavicular line and the last one further lateral to the original Optiview port. After decompression of the stomach with the orogastric tube, the orogastric tube and any esophagealprobes were removed from the patient. The stomach was grasped using a Damon forceps and retractedcaudally to expose the phrenoesophageal ligament. This was taken down with the hook electrocautery.A blunt palpation probe was used to expose the esophagus and the left bundle of the right john. At this point we released our retraction on the stomach and measured five to seven centimeters from theAngle of His along the lesser curvature. The Nerve of Latarjet was identified and preserved. We made a window along the lesser curvature with the Harmonic Scalpel and began the penny-gastric dissection. This allowed entry into the lesser sac. Once the lesser sac was entered, a 60-mm x 3.5-mm ROBIN stapler was used to come across the stomach in a horizontal fashion. One further firing was used to progress cephalad. At this point left lower quadrant port site was dilated, and an Orestes wound retractor was placed. The 25 mm anvil was introduced into the abdomen and positioned into the left upper amy drant. A gastrotomy in the gastric pouch was performed using the harmonic scalpel. Similarly, a gastrotomy in the gastric remnant, proximal, was performed. A [place] dissector was passed through thegastric pouch, and out the remnant gastrotomy. The 25 mm EEA anvil was grasped and brought through the remnant, into the gastric pouch and positioned accordingly. Further 60 mm linear staple loads were used to complete a gastric pouch towards the angle of Hiss. The remaining gastrotomy in the gastric remnant was also closed transversely using a 60 mm staple load. All staple lines were oversewn using 3-0 Vicryl including a pursestring around the anvil. Having successfully completed our small gastric pouch and anvil placement, we turned our attention to dividing the greater omentum. This was accomplished with the harmonic scalpel. After this, we identified the ligament of Treitz and went 50-cm distal to that. A 3-[address] then [address] to jabari the proximal bowel and then we divided the bowel using a 60-mm x 2.5-mm ROBIN stapler. The mesentery was also transected using a white staple load with a buttress reinforcement. We then measured distal on the small bowel and oriented our bowel to create the jejunojejunostomy. An enterotomy was created in each limb with the harmonic scalpel and using the Triple-Stapling Technique created a side-to- side jejunojejunostomy. 60-mm x 2.5-mm staple loads were utilized. The opening was evaluated for hemostasis and care was taken to make sure that the posterior wall of the anastomosis was free. The remaining defect was closed with one or more firings of a 60-mm x 2.5-mm linear stapler. Numerous sutures of 0 Ethibond were used to close the defect of the mesentery at the jejunojejunostomy. After this was done we brought the efferent limb all the way up to the gastric pouch, in between our previously created defect in the greater omentum. The staple line on the jejunum was opened using the harmonic scalpel and after enlarging the lateral trocar site, the 25-mm EEA stapler was introduced into the abdomen and into the open jejunum. Using the EEA stapler, we performed our gastrojejunostomy. The stapler was removed and two complete donuts were identified. The open-ended jejunum was closed using a 60-mm x 2.5-mm ROBIN stapler and bowel continuity reestablished. This amputated piece of jejunum was placed into an Endopouch and removed from the abdomen. Having restored bowel continuity, we placed multiple interrupted sutures to reinforce the gastrojejunal anastomosis. Interrupted 3-0 Vicryl sutures were placed laterally, posterolaterally and anteriorly so that we could circumferentially reinforce the anastomosis. The bowel was pink and viable, and there was no tension on the anastomosis. Having completed our reinforcement sutures, we then proceeded with checking the anastomosis for leakage. After completing the gastrojejunostomy, upper GI endoscopy was performed in order to evaluate the integrity of the anastomosis. The Olympus gastroscope was introduced through the mouth, through the esophagus and into the small gastric pouch. The anastomosis was widely patent. The lateral gastric staple line and gastrojejunal anastomosis were hemostatic. The scope easily passed through the anastomosis into the jejunum. The anastomosis was submerged under irrigation placed in the abdomen. There was no evidence of air extravasation on the intraoperative leak test performed. The air was evacuatedand the scope removed from the patient. Intra-abdominal evaluation of the liver identified enlargement of the left and right lobe of the liver and as a result of the grossly abnormal visual inspection of the liver a liver biopsy was performed. A liver biopsy was performed with a laparoscopic wedge liver biopsy forceps. We sent two piecesto pathology for permanent sectioning. Bovie electrocautery was used to obtain hepatic hemostasis. The abdomen was then copiously irrigated and checked for hemostasis. The effluent was evacuated fromthe abdomen and then we turned our attention to closure of the trocar sites. Anuja's defect was closed using 0-Ethibond suture in a running fashion. This incorporated the mesentery of the sandra limb which was sewn to the leaflet of the transverse colon and the defect was obliterated. At this point, prior to evacuation of the pneumoperitoneum, we closed all our ports with the laparoscopic suture fascial closure device using 0-Vicryl. The pneumoperitoneum was then evacuated. The LLQ wound was irrigated using an additional 1000 cc of saline irrigation. The wound was left open and packed using Nu-Gauze wick. The rest of the port sites were closed using 4-0 Monocryl in a running subcuticular fashion. Steri-Strips were applied to the wounds, the patient was awakened from anesthesia, extubated and taken to recovery in stable condition. [facility] Data Collection Sheet Start Time: 141 Stop Time: 1630 Staff Occupational Therapist: [x] Resident [] Fellow [] PA/SPONGE CLIPPER/CASINO GAMES DEALER [] Attending - Weight Loss Surgeon ASA Class: [] 1 [] 2 [x] 3 []4 [] 5 Surgical Approach: [x] Conventional laparoscopic [] Robotic-assisted [] Open Was the procedure converted to another approach? [] Yes [x] No Was the case aborted? [] Yes [x] No Was a drain placed at the time of the initial operation? [] Yes [x] No Was a swallow study performed the day of or the day after the procedure? [x] Yes [] No Was the anastomotic/staple line checked with a provocative test to assess for leak? [x] Yes [] No Was this a stapling procedure: [x] Yes [] No Other Procedures: EGD Liver Biopsy documented in this [facility]03-18-2024 Nurse Note* Babs King RN - 05/10/2023 11:[address] Juan F Rivera notified that placing the patient on telemetry has been delayed, waiting for a laboratory monitor box to become available, Dr. Juan F Rivera aware, no new orders at this time. [id number] Nurse Note* Babs King RN - 05/10/2023 11:[address] Juan F Rivera notified that placing the patient on telemetry has been delayed, waiting for a laboratory monitor box to become available, Dr. Juan F Rivera aware, no new orders at this time. documented in this [address]18-2024 Note* Perioperative Nursing Note - Jocelyn Sosa RN - 05/10/2023 5:32 PM EDT Labs drawn and sent to lab [id number] Note* Perioperative Nursing Note - Jocelyn Sosa RN - 05/10/2023 5:32 PM EDT Labs drawn and sent to lab [id number] Hospital Discharge instructions* Discharge Instructions* Zully Anton RN - 05/10/2023 2:33 PM EDT Postoperative Patient Instructions Laparoscopic Sandra-en-Y Gastric Bypass Procedure If your surgical incisions are covered with steri-strips (white paper tape), leave them in place. It is ok if they fall off on their own. If your incisions have catracho, they will be removed at your next office visit with your surgeon. If you feel the catracho are catching or rubbing on your abdominal binder or clothing, you may place a BAND-AID over them. You may have an open incision on your left lower abdomen; keep this incision covered with clean, dry gauze. Change this dressing daily; no packing is needed. You may shower at any point. Wash incisions with Hibiclens or antibacterial soap. Pat dry. Do not use ointments, lotions or powders on your surgical incisions. If your incisions begin to look infected (e.g., swelling, redness, drainage or pain), please notifyyour manager aerospace. Take your temperature twice a day for the first postoperative week. Call if your temperature is greater than 101 F. A fever could be a sign of infection or surgical complication. Resume your home medications as directed by your surgeon and your manager aerospace. Make an appointment with your prescribing physician if you are taking medication for your blood pressure or diabetes. You will need close follow-up regarding your medical conditions, as you may soon be off many of these medications. No aspirin or aspirin containing medications should be taken unless directed by your surgeon. Do not take multiple medications at one time. Take two to three at a time. Wait 20 to 30 minutes before taking additional medications. Do not take any time-release, controlled-release, or extended-release medications. This includes any enteric coated medications. Your anatomy has been altered, and you no longer have the ability to absorb these medications efficiently. If you have been prescribed any of these types of medications, you should contact the prescribing physician for direction. It will not harm you to take these medications in the interim; however, absorption is questionable. Follow our food guidelines closely. Remember, clear liquids for the first two days after surgery. No sugar, caffeine or carbonation. Your fluid requirement is 64 oz. per day. You may advance to full liquids on post- op day three. This is in addition to the clear liquid diet. Do not take your calcium, vitamin B12, multivitamin or Actigall (if ordered) until after your one week appointment. All proton pump inhibitors (Prilosec, Protonix ect), should be started the day after you are discharged home. Important to take daily. No alcoholic beverages at all during the first 18 months post-op. No lifting, pushing or pulling over 15 lbs. for one month. You may go up and down stairs. No driving for one week after surgery. Do not drive if you are taking prescription pain medication. Walking as part of your daily activities is required immediately. It is recommended that you shouldwalk for 5 minutes every hour you are awake to help decrease the risk of blood clots after surgery.Walking helps prevent blood clots from forming. A blood clot that forms in your legs or arms is called a Deep Vein Thrombosis (DVT). Signs of DVT include pain, redness, swelling and warmth. A blood clot that travels to your lungs is called a Pulmonary Embolism (PE). Symptoms of a PE include shortness of breath, pain with breathing, chest pain/discomfort or rapid heartbeat. You can begin exercising in four to six weeks but must be cleared by your surgeon at your one monthappointment. Use your incentive spirometer from the hospital for the first postoperative week as instructed, tentimes every other hour while awake. Prior to returning to work, you will be seen, evaluated and cleared by your surgeon. Remember, you will have pain! Take your pain medicine so that you are comfortable enough to cough, take deep breaths and walk. It is not unusual for lower left abdominal pain to return 10 to 14 days after surgery. Icing the area can reduce discomfort. Fatigue is quite common in the first postoperative week. Rest appropriately in response to this fatigue. Remember that mobility after surgery is very important. You must not remain in a sitting or recumbent position for long periods of time. If you have obstructive sleep apnea and have been prescribed a CPAP machine, you must continue to use this device after surgery. Please call the [facility] at [phone] if you have any questions or concerns during business hours: Wednesday through Wednesday, 8 a.m. to 4:30 p.m. The answering service may be called during non- business hours at [phone]. If you have a medical emergency, call 911 or go to the closest hospital emergency room. Call your surgeon for problems, or if you have any of the following: Temperature greater than 101 F. Take your temperature twice a day in the morning and evening until your first office visit Redness, pain, swelling or drainage from any of the incisions Inability to pass urine or have bowel movements ANY shortness of breath, chest pain, leg swelling or leg pain (in one or both of your legs) Rapid heart rate Nausea or vomiting with the inability to keep liquids down Bleeding from your rectum Frequently feeling dizzy or light-headed, inability to walk Abnormal drain color appearance if you have a drain Your one week and one month follow-up office visits with your surgeon at the [facility] are located in the discharge folder. These are required visits and important for your safety and recovery. documented in this [facility]03-18-2024 Note* Op Note - Memo Campbell MD - 05/10/2023 1:41 PM EDT Images from the original note were not included. [facility] - Surgery [facility] Physicians Surgery Patient Name: Anne Marie Peterson OPERATIVE NOTE DATE OF PROCEDURE: 05/10/2023 SURGEON: Memo Campbell MD MEDICAL INTERN: Christy Lopez MD PREOPERATIVE DIAGNOSIS: HTN MOE Prediabetes Hyperlipidemia Hepatic Steatosis Morbid Obesity POSTOPERATIVE DIAGNOSIS: HTN MOE Prediabetes Hyperlipidemia Hepatic Steatosis Morbid Obesity OPERATION: Laparoscopic Sandra-en-Y gastric bypass Laparoscopic Liver Biopsy Upper Gastrointestinal Endoscopy ANESTHESIA: General anesthesia ESTIMATED BLOOD LOSS: Minimal. COMPLICATIONS: None SPECIMENS: Liver Biopsy PREOPERATIVE MEDICATIONS: Ancef, Heparin HISTORY: The patient is a 27 y.o. year old female with history of morbid obesity and a BMI of Body mass index is 66.7 kg/m . CONSENT: The patient was seen and evaluated in the office setting where the procedure was explainedto the patient and any questions were answered. An informed consent discussion was held between and the patient. Viable alternatives to the proposed procedure, including but not limited to, medical observation under the care of a physician, exercise programs and other weight reductive operative procedures were explained to the patient. Risks to the proposed procedure, including butnot limited to hemorrhage requiring transfusion, infection, nerve injury, conversion to open, anastomotic disruption, anastomotic stricture, pneumonia, pulmonary embolus, airway complications, and were explained to the patient. The patient understands the above alternatives and risks and has electively chosen laparoscopic gastric bypass with sandra-en-y reconstruction and wishes to proceed. TECHNIQUE: The patient was taken to the operating room and placed in the supine position. After successful induction of general endotracheal anesthesia by the anesthesia department an orogastric tubewas placed to decompress the stomach. The patient was placed in the split leg lithotomy position and care was taken to pad the exposed extremities. The patient's abdomen was prepped and draped in thenormal sterile fashion. A 12-mm Optiview trocar was placed in the left subcostal position in the midclavicular line and access to abdominal cavity was obtained under visualization. Pneumoperitoneum was then established without complications. After evaluation of the abdominal contents from this trocar position, five other 12-mm ports were placed under direct visualization. One at the umbilicus, one 2-3 cm above the umbilicus, one at the subxyphoid area, one in the right subcostal margin in the midclavicular line and the last one further lateral to the original Optiview port. After decompression of the stomach with the orogastric tube, the orogastric tube and any esophagealprobes were removed from the patient. The stomach was grasped using a Norbert forceps and retractedcaudally to expose the phrenoesophageal ligament. This was taken down with the hook electrocautery.A blunt palpation probe was used to expose the esophagus and the left bundle of the right john. At this point we released our retraction on the stomach and measured five to seven centimeters from theAngle of His along the lesser curvature. The Nerve of Latarjet was identified and preserved. We made a window along the lesser curvature with the Harmonic Scalpel and began the penny-gastric dissection. This allowed entry into the lesser sac. Once the lesser sac was entered, a 60-mm x 3.5-mm ROBIN stapler was used to come across the stomach in a horizontal fashion. One further firing was used to progress cephalad. At this point left lower quadrant port site was dilated, and an Orestes wound retractor was placed. The 25 mm anvil was introduced into the abdomen and positioned into the left upper amy drant. A gastrotomy in the gastric pouch was performed using the harmonic scalpel. Similarly, a gastrotomy in the gastric remnant, proximal, was performed. A [place] dissector was passed through thegastric pouch, and out the remnant gastrotomy. The 25 mm EEA anvil was grasped and brought through the remnant, into the gastric pouch and positioned accordingly. Further 60 mm linear staple loads were used to complete a gastric pouch towards the angle of Hiss. The remaining gastrotomy in the gastric remnant was also closed transversely using a 60 mm staple load. All staple lines were oversewn using 3-0 Vicryl including a pursestring around the anvil. Having successfully completed our small gastric pouch and anvil placement, we turned our attention to dividing the greater omentum. This was accomplished with the harmonic scalpel. After this, we identified the ligament of Treitz and went 50-cm distal to that. A 3-[address] to jabari the proximal bowel and then we divided the bowel using a 60-mm x 2.5-mm ROBIN stapler. The mesentery was also transected using a white staple load with a buttress reinforcement. We then measured distal on the small bowel and oriented our bowel to create the jejunojejunostomy. An enterotomy was created in each limb with the harmonic scalpel and using the Triple-Stapling Technique created a side-to- side jejunojejunostomy. 60-mm x 2.5-mm staple loads were utilized. The opening was evaluated for hemostasis and care was taken to make sure that the posterior wall of the anastomosis was free. The remaining defect was closed with one or more firings of a 60-mm x 2.5-mm linear stapler. Numerous sutures of 0 Ethibond were used to close the defect of the mesentery at the jejunojejunostomy. After this was done we brought the efferent limb all the way up to the gastric pouch, in between our previously created defect in the greater omentum. The staple line on the jejunum was opened using the harmonic scalpel and after enlarging the lateral trocar site, the 25-mm EEA stapler was introduced into the abdomen and into the open jejunum. Using the EEA stapler, we performed our gastrojejunostomy. The stapler was removed and two complete donuts were identified. The open-ended jejunum was closed using a 60-mm x 2.5-mm ROBIN stapler and bowel continuity reestablished. This amputated piece of jejunum was placed into an Endopouch and removed from the abdomen. Having restored bowel continuity, we placed multiple interrupted sutures to reinforce the gastrojejunal anastomosis. Interrupted 3-0 Vicryl sutures were placed laterally, posterolaterally and anteriorly so that we could circumferentially reinforce the anastomosis. The bowel was pink and viable, and there was no tension on the anastomosis. Having completed our reinforcement sutures, we then proceeded with checking the anastomosis for leakage. After completing the gastrojejunostomy, upper GI endoscopy was performed in order to evaluate the integrity of the anastomosis. The Olympus gastroscope was introduced through the mouth, through the esophagus and into the small gastric pouch. The anastomosis was widely patent. The lateral gastric staple line and gastrojejunal anastomosis were hemostatic. The scope easily passed through the anastomosis into the jejunum. The anastomosis was submerged under irrigation placed in the abdomen. There was no evidence of air extravasation on the intraoperative leak test performed. The air was evacuatedand the scope removed from the patient. Intra-abdominal evaluation of the liver identified enlargement of the left and right lobe of the liver and as a result of the grossly abnormal visual inspection of the liver a liver biopsy was performed. A liver biopsy was performed with a laparoscopic wedge liver biopsy forceps. We sent two piecesto pathology for permanent sectioning. Bovie electrocautery was used to obtain hepatic hemostasis. The abdomen was then copiously irrigated and checked for hemostasis. The effluent was evacuated fromthe abdomen and then we turned our attention to closure of the trocar sites. Anuja's defect was closed using 0-Ethibond suture in a running fashion. This incorporated the mesentery of the sandra limb which was sewn to the leaflet of the transverse colon and the defect was obliterated. At this point, prior to evacuation of the pneumoperitoneum, we closed all our ports with the laparoscopic suture fascial closure device using 0-Vicryl. The pneumoperitoneum was then evacuated. The LLQ wound was irrigated using an additional 1000 cc of saline irrigation. The wound was left open and packed using Nu-Gauze wick. The rest of the port sites were closed using 4-0 Monocryl in a running subcuticular fashion. Steri-Strips were applied to the wounds, the patient was awakened from anesthesia, extubated and taken to recovery in stable condition. [facility] Data Collection Sheet Start Time: 1414 Stop Time: 1630 Staff Occupational Therapist: [x] Resident [] Fellow [] PA/SPONGE CLIPPER/CASINO GAMES DEALER [] Attending - Weight Loss Surgeon ASA Class: [] 1 [] 2 [x] 3 []4 [] 5 Surgical Approach: [x] Conventional laparoscopic [] Robotic-assisted [] Open Was the procedure converted to another approach? [] Yes [x] No Was the case aborted? [] Yes [x] No Was a drain placed at the time of the initial operation? [] Yes [x] No Was a swallow study performed the day of or the day after the procedure? [x] Yes [] No Was the anastomotic/staple line checked with a provocative test to assess for leak? [x] Yes [] No Was this a stapling procedure: [x] Yes [] No Other Procedures: [id number]* Op Note - Memo Campbell MD - 05/10/2023 1:41 PM EDT Images from the original note were not included. [facility] - Surgery [facility] Physicians Surgery Patient Name: Anne Marie Peterson OPERATIVE NOTE DATE OF PROCEDURE: 05/10/2023 SURGEON: Memo Campbell MD MEDICAL INTERN: Christy Lopez MD PREOPERATIVE DIAGNOSIS: HTN MOE Prediabetes Hyperlipidemia Hepatic Steatosis Morbid Obesity POSTOPERATIVE DIAGNOSIS: HTN MOE Prediabetes Hyperlipidemia Hepatic Steatosis Morbid Obesity OPERATION: Laparoscopic Sandra-en-Y gastric bypass Laparoscopic Liver Biopsy Upper Gastrointestinal Endoscopy ANESTHESIA: General anesthesia ESTIMATED BLOOD LOSS: Minimal. COMPLICATIONS: None SPECIMENS: Liver Biopsy PREOPERATIVE MEDICATIONS: Ancef, Heparin HISTORY: The patient is a 27 y.o. year old female with history of morbid obesity and a BMI of Body mass index is 66.7 kg/m . CONSENT: The patient was seen and evaluated in the office setting where the procedure was explainedto the patient and any questions were answered. An informed consent discussion was held between and the patient. Viable alternatives to the proposed procedure, including but not limited to, medical observation under the care of a physician, exercise programs and other weight reductive operative procedures were explained to the patient. Risks to the proposed procedure, including butnot limited to hemorrhage requiring transfusion, infection, nerve injury, conversion to open, anastomotic disruption, anastomotic stricture, pneumonia, pulmonary embolus, airway complications, and were explained to the patient. The patient understands the above alternatives and risks and has electively chosen laparoscopic gastric bypass with sandra-en-y reconstruction and wishes to proceed. TECHNIQUE: The patient was taken to the operating room and placed in the supine position. After successful induction of general endotracheal anesthesia by the anesthesia department an orogastric tubewas placed to decompress the stomach. The patient was placed in the split leg lithotomy position and care was taken to pad the exposed extremities. The patient's abdomen was prepped and draped in thenormal sterile fashion. A 12-mm Optiview trocar was placed in the left subcostal position in the midclavicular line and access to abdominal cavity was obtained under visualization. Pneumoperitoneum was then established without complications. After evaluation of the abdominal contents from this trocar position, five other 12-mm ports were placed under direct visualization. One at the umbilicus, one 2-3 cm above the umbilicus, one at the subxyphoid area, one in the right subcostal margin in the midclavicular line and the last one further lateral to the original Optiview port. After decompression of the stomach with the orogastric tube, the orogastric tube and any esophagealprobes were removed from the patient. The stomach was grasped using a Damon forceps and retractedcaudally to expose the phrenoesophageal ligament. This was taken down with the hook electrocautery.A blunt palpation probe was used to expose the esophagus and the left bundle of the right john. At this point we released our retraction on the stomach and measured five to seven centimeters from theAngle of His along the lesser curvature. The Nerve of Latarjet was identified and preserved. We made a window along the lesser curvature with the Harmonic Scalpel and began the penny-gastric dissection. This allowed entry into the lesser sac. Once the lesser sac was entered, a 60-mm x 3.5-mm ROBIN stapler was used to come across the stomach in a horizontal fashion. One further firing was used to progress cephalad. At this point left lower quadrant port site was dilated, and an Orestes wound retractor was placed. The 25 mm anvil was introduced into the abdomen and positioned into the left upper amy drant. A gastrotomy in the gastric pouch was performed using the harmonic scalpel. Similarly, a gastrotomy in the gastric remnant, proximal, was performed. A [place] dissector was passed through thegastric pouch, and out the remnant gastrotomy. The 25 mm EEA anvil was grasped and brought through the remnant, into the gastric pouch and positioned accordingly. Further 60 mm linear staple loads were used to complete a gastric pouch towards the angle of Hiss. The remaining gastrotomy in the gastric remnant was also closed transversely using a 60 mm staple load. All staple lines were oversewn using 3-0 Vicryl including a pursestring around the anvil. Having successfully completed our small gastric pouch and anvil placement, we turned our attention to dividing the greater omentum. This was accomplished with the harmonic scalpel. After this, we identified the ligament of Treitz and went 50-cm distal to that. A 3-[address] then [address] to jabari the proximal bowel and then we divided the bowel using a 60-mm x 2.5-mm ROBIN stapler. The mesentery was also transected using a white staple load with a buttress reinforcement. We then measured distal on the small bowel and oriented our bowel to create the jejunojejunostomy. An enterotomy was created in each limb with the harmonic scalpel and using the Triple-Stapling Technique created a side-to- side jejunojejunostomy. 60-mm x 2.5-mm staple loads were utilized. The opening was evaluated for hemostasis and care was taken to make sure that the posterior wall of the anastomosis was free. The remaining defect was closed with one or more firings of a 60-mm x 2.5-mm linear stapler. Numerous sutures of 0 Ethibond were used to close the defect of the mesentery at the jejunojejunostomy. After this was done we brought the efferent limb all the way up to the gastric pouch, in between our previously created defect in the greater omentum. The staple line on the jejunum was opened using the harmonic scalpel and after enlarging the lateral trocar site, the 25-mm EEA stapler was introduced into the abdomen and into the open jejunum. Using the EEA stapler, we performed our gastrojejunostomy. The stapler was removed and two complete donuts were identified. The open-ended jejunum was closed using a 60-mm x 2.5-mm ROBIN stapler and bowel continuity reestablished. This amputated piece of jejunum was placed into an Endopouch and removed from the abdomen. Having restored bowel continuity, we placed multiple interrupted sutures to reinforce the gastrojejunal anastomosis. Interrupted 3-0 Vicryl sutures were placed laterally, posterolaterally and anteriorly so that we could circumferentially reinforce the anastomosis. The bowel was pink and viable, and there was no tension on the anastomosis. Having completed our reinforcement sutures, we then proceeded with checking the anastomosis for leakage. After completing the gastrojejunostomy, upper GI endoscopy was performed in order to evaluate the integrity of the anastomosis. The Olympus gastroscope was introduced through the mouth, through the esophagus and into the small gastric pouch. The anastomosis was widely patent. The lateral gastric staple line and gastrojejunal anastomosis were hemostatic. The scope easily passed through the anastomosis into the jejunum. The anastomosis was submerged under irrigation placed in the abdomen. There was no evidence of air extravasation on the intraoperative leak test performed. The air was evacuatedand the scope removed from the patient. Intra-abdominal evaluation of the liver identified enlargement of the left and right lobe of the liver and as a result of the grossly abnormal visual inspection of the liver a liver biopsy was performed. A liver biopsy was performed with a laparoscopic wedge liver biopsy forceps. We sent two piecesto pathology for permanent sectioning. Bovie electrocautery was used to obtain hepatic hemostasis. The abdomen was then copiously irrigated and checked for hemostasis. The effluent was evacuated fromthe abdomen and then we turned our attention to closure of the trocar sites. Anuja's defect was closed using 0-Ethibond suture in a running fashion. This incorporated the mesentery of the sandra limb which was sewn to the leaflet of the transverse colon and the defect was obliterated. At this point, prior to evacuation of the pneumoperitoneum, we closed all our ports with the laparoscopic suture fascial closure device using 0-Vicryl. The pneumoperitoneum was then evacuated. The LLQ wound was irrigated using an additional 1000 cc of saline irrigation. The wound was left open and packed using Nu-Gauze wick. The rest of the port sites were closed using 4-0 Monocryl in a running subcuticular fashion. Steri-Strips were applied to the wounds, the patient was awakened from anesthesia, extubated and taken to recovery in stable condition. [facility] Data Collection Sheet Start Time: 1413 Stop Time: 1630 Staff Occupational Therapist: [x] Resident [] Fellow [] PA/SPONGE CLIPPER/CASINO GAMES DEALER [] Attending - Weight Loss Surgeon ASA Class: [] 1 [] 2 [x] 3 []4 [] 5 Surgical Approach: [x] Conventional laparoscopic [] Robotic-assisted [] Open Was the procedure converted to another approach? [] Yes [x] No Was the case aborted? [] Yes [x] No Was a drain placed at the time of the initial operation? [] Yes [x] No Was a swallow study performed the day of or the day after the procedure? [x] Yes [] No Was the anastomotic/staple line checked with a provocative test to assess for leak? [x] Yes [] No Was this a stapling procedure: [x] Yes [] No Other Procedures: [id number] Attending History and physical note* Memo Campbell MD - 05/10/2023 12:52 PM EDT Images from the original note were not included. [facility] - Surgery [facility] Physicians Surgery Patient Name: Anne Marie Peterson Date: 05/10/23 Update History & Physical The patient's History and Physical was reviewed with the patient and there were no significant changes. I examined the patient and there were no significant changes from the previous History and Physical. I verify that the patient's condition and planned treatment has not changed. I also confirm the necessity for the procedure still present. Plan: The risk, benefits, expected outcome, and alternative to the recommended procedure have been discussed with the patient. Patient understands and wants to proceed with the procedure. MO Plan LRYGB Source Note - Rosalva JaimeLUCIA guzman - PLANT ECOLOGIST - 05/03/2023 11:30 AM EDT Images from the original note were not included. Comprehensive Pre Surgical History and Physical ? Name: Anne Marie Peterson : 1995 (Age-27 y.o.) Date of Service: Pt seen/examined on 05/03/2023 Procedure Information Date/Time: 05/10/23 1330 Procedures: LAPAROSCOPIC SANDRA-EN-Y GASTRIC BYPASS WITH LIVER WEDGE BIOPSY, POSSIBLE OPEN (Abdomen) - THIS CASE REQUIRES 180MINS UNLISTED LAPAROSCOPIC PROCEDURE LIVER (Abdomen) Location: [facility] [address] [place] [address] Operating Room Surgeons: Memo Campbell MD Chief Complaint: Morbid (severe) obesity due to excess calories (HCC) [E66.01] ASSESSMENT/PLAN: Patient is considered intermediate risk for this intermediate level 2 risk procedure/surgery () with no reducible risk factors. Based on the above evaluation, the benefits of the planned procedure likely exceed the risks. The patient is medically optimized to proceed with the planned procedure without any further cardiopulmonary testing. 1) Morbid (severe) obesity due to excess calories (HCC) [E66.01] - Managed per surgery - Orders per PAT Protocol: EKG, BMP, CBC, A1c and Albumin. UA with reflex to culture ordered - EKG 05/03/2023 reviewed: Sinus rhythm, Low voltage, consider RIGHT ventricular hypertrophy, nonspecific T abnormalities, inferior leads. No acute changes - METS >4 No further evaluation required - From last office visit with Dr. Campbell 2) HTN BP Readings from Last 3 Encounters: 05/03/23 (!) 144/102 04/08/23 (!) 140/88 02/05/23 (!) 154/85 - Elevated, asymptomatic - Managed with metoprolol - Continue follow up with PCP for monitoring and management 3) MOE - Compliant with CPAP/BiPap - Advised to bring PAP machine DOS 4) Anemia - Last CBC 12/14/22: H/H 11.9/38.1 - Managed with ferrous sulfate 5) Hx of Atrial Fibrillation - Reports has had two episodes of A-fib since 11/2022 and again 02/2022 - Was able to convert with medication therapy - Managed with metoprolol - Not on anticoagulant or antiplatelet therapy currently - Asymptomatic at present - Updated EKG in PAT 6) Urinary Frequency - Patient reports concerned for a UTI currently - Reports new onset of frequency and urgency and typically has these symptoms with a UTI - Will add on a UA with reflex to culture Visit Type: Pre-Admission Testing Visit Labs Ordered: YES - PER PAT PROTOCOL Sleep Referral Ordered: NO - NEGATIVE SCREEN PER SLEEP REFERRAL PROTOCOL Total time spent (which include face to face and non face to face encounters) : 40 minutes Toxic drug monitoring/narrow therapeutic index drug monitoring : # Drug name : Ferrous Sulfate # Route administered : PO # Method of monitoring : CBC PAT Protocol referenced includes: 1. Anesthesia Lab Protocol Orders 2. Perioperative Cardiovascular Risk Assessment 3. Anesthesia Assessment 4. Pain Assessment and Acute Pain Service Consult (if appropriate) 5. Medical Clearance/Consult from Internal Medicine ([facility]) 6. Shower/Wash Order (for designated surgeries) 7. MOE Screen and Sleep Clinic Referral (if appropriate) History Of Present Illness: 27 y.o. female who we are asked to see/evaluate by Dr. Campbell for pre- operative evaluation prior to ? Case: [id number] Date/Time: 05/10/23 1330 Procedures: LAPAROSCOPIC SANDRA-EN-Y GASTRIC BYPASS WITH LIVER WEDGE BIOPSY, POSSIBLE OPEN (Abdomen) [30349 CPT(R)] - THIS CASE REQUIRES 180MINS UNLISTED LAPAROSCOPIC PROCEDURE LIVER (Abdomen) [98097 CPT(R)] Anesthesia type: General Diagnosis: Morbid (severe) obesity due to excess calories (HCC) [E66.01] Pre-op diagnosis: Morbid (severe) obesity due to excess calories (HCC) [E66.01] Location: [address] Operating Room Surgeons: Memo Campbell MD From last office visit with Dr. Campbell on 04/08/23: The patient is a 27 y.o. year old female with morbid obesity, who stands Height: 5' 5.25 (165.7 cm) ([facility]) tall with a weight of Weight: (!) 403 lb (183 kg) , resulting in a BMI of Body mass index is 66.55 kg/m .. The patient is scheduled to undergo weight loss surgery to treat the following comorbid conditions caused by her morbid obesity: HTN Patient denies exertional chest pain/shortness of breath. Denies dizziness, syncope, lightheadedness. Denies fever, chills, weakness or fatigue. Patient denies any recent illness, infections, or wounds. Patient denies abdominal pain, nausea, vomiting, diarrhea, or constipation. Patient denies hx of CAD, CHF, SC, TIA/CVA, diabetes, COPD, asthma, DVT/PE. Past Medical History: Past Medical History: No date: Anemia No date: Atrial fibrillation (HCC) Comment: 2 episodes No date: Back pain 10/2020: COVID-19 vaccine series completed No date: Daytime sleepiness No date: SANTOS (dyspnea on exertion) No date: Fatigue No date: History of kidney stones No date: History of UTI No date: Incontinence No date: Joint pain, knee No date: PTSD (post-traumatic stress disorder) No date: Sleep apnea, obstructive Comment: uses cpap Past Surgical History: Past Surgical History: No date: COLONOSCOPY 1999: HERNIA REPAIR Comment: Dr. Memo [facility] - inguinal hernia 2010: LAP,CHOLECYSTECTOMY (HISTORICAL) Comment: Dr. Memo [facility] No date: UPPER GASTROINTESTINAL ENDOSCOPY Medications Prior to Admission: Current Outpatient Medications on File Prior to Visit Medication Sig Dispense Refill colestipol (Colestid) 1 g tablet Take 1 g by mouth Daily as needed. Cyanocobalamin (Vitamin B-12) [address] 1 Dose under the tongue daily. ferrous sulfate 325 (65 Fe) MG tablet Take 1 tablet (325 mg) by mouth 2 times daily. 30 tablet 3 magnesium 30 MG tablet Take 30 mg by mouth 2 times daily. metoprolol succinate XL (Toprol-XL) 25 MG 24 hr tablet Take 1 tablet (25 mg) by mouth daily. (Patient taking differently: Take 50 mg by mouth daily.) 90 tablet 3 omeprazole (PriLOSEC) [address] capsule Take 1 capsule (20 mg) by mouth daily. Do not crush or chew.90 capsule 1 Respiratory Therapy Supplies (CareTouch 2 CPAP Hose Dominatrix) misc 10 cm h20 VITAMIN D, CHOLECALCIFEROL, PO Take by mouth daily. No current facility-administered medications on file prior to visit. CHRONIC NARCOTIC USE: No Allergies: Patient has no known allergies. If patient has opioid allergy, is it okay to take Acetaminophen: Yes Social History: TOBACCO: reports that she has never smoked. She has never used smokeless tobacco. ETOH: reports that she does not currently use alcohol. Social History Substance and Sexual Activity Drug Use Never Family History: Family History Problem Relation Name Age of Onset Cancer Mother Hypertension Mother Obesity Mother Heart disease Father Obesity Father Cancer Maternal Grandmother Heart disease Maternal Grandmother Stroke Maternal Grandfather Hypertension Maternal Grandfather Heart disease Maternal Grandfather Diabetes Maternal Grandfather Obesity Maternal Grandfather Anesthesia problems Maternal Grandfather REVIEW OF SYSTEMS: Review of Systems Constitutional: Negative. HENT: Negative. Respiratory: Negative. Cardiovascular: Positive for palpitations (Intermittent). Gastrointestinal: Negative. Endocrine: Negative. Genitourinary: Positive for frequency and urgency. Musculoskeletal: Negative. Skin: Negative. Allergic/Immunologic: Negative. Neurological: Negative. Hematological: Negative. Psychiatric/Behavioral: Negative. Physical Exam: Physical Exam Vitals reviewed. Constitutional: Appearance: Normal appearance. She is obese. HENT: Head: Normocephalic. Mouth/Throat: Mouth: Mucous membranes are moist. Pharynx: Oropharynx is clear. Eyes: Conjunctiva/sclera: Conjunctivae normal. Pupils: Pupils are equal, round, and reactive to light. Cardiovascular: Rate and Rhythm: Normal rate and regular rhythm. Pulses: Normal pulses. Heart sounds: Normal heart sounds. Comments: No Carotid Bruits noted Pulmonary: Effort: Pulmonary effort is normal. Abdominal: General: Abdomen is flat. Bowel sounds are normal. Palpations: Abdomen is soft. Genitourinary: Comments: Deferred Musculoskeletal: General: Normal range of motion. Cervical back: Normal range of motion. Skin: General: Skin is warm and dry. Capillary Refill: Capillary refill takes less than 2 seconds. Neurological: General: No focal deficit present. Mental Status: She is alert and oriented to person, place, and time. Psychiatric: Mood and Affect: Mood normal. Behavior: Behavior normal. Vitals: Vitals Value Taken Time BP 144/102 05/03/23 1141 Temp 37.3 C (99.1 F) 05/03/23 1141 Pulse 103 05/03/23 1141 Resp 12 05/03/23 1141 SpO2 95 % 05/03/23 1141 Labs: Lab Results Component Value Date WBC 10.5 12/14/2022 HGB 11.9 12/14/2022 HCT 38.1 12/14/2022 MCV 70.3 (L) 12/14/2022 PLT 380 12/14/2022 Lab Results Component Value Date NA 137 12/14/2022 K 4.2 12/14/2022 CL 99 12/14/2022 CO2 29 12/14/2022 BUN 13 12/14/2022 CREATININE 0.65 12/14/2022 GLUCOSE 86 12/14/2022 CALCIUM 9.3 12/14/2022 PROT 8.4 (H) 02/23/2023 ALKPHOS 70 12/14/2022 AST 23 12/14/2022 ALT 23 12/14/2022 EGFR >90.0 12/14/2022 Ty's Simple Cardiac Risk Index: Interpretation: 0 Points Class I 0.5% 1 Point Class II 1.3% 2 Points Class III 3.6% 3+ Points Class IV 9.1% PAT Pain Score: Postop Pain Management Plan (Pain consult ordered?): Pain consult not indicated at this time ? EKG: Yes, 05/03/2023 IMPRESSION: Sinus rhythm Low voltage, precordial leads Consider right ventricular hypertrophy Nonspecific T abnormalities, inferior leads ECHO and EF:Echo 01/12/23 METS: Yes, >4 Electronically signed by: LUCIA Bernal CNP Date: 05/03/2023 at 11:58 AM [facility] [id number] History and physical note* Memo Campbell MD - 05/10/2023 12:52 PM EDT Images from the original note were not included. [facility] - Surgery [facility] Physicians Surgery Patient Name: Anne Marie Peterson Date: 05/10/23 Update History & Physical The patient's History and Physical was reviewed with the patient and there were no significant changes. I examined the patient and there were no significant changes from the previous History and Physical. I verify that the patient's condition and planned treatment has not changed. I also confirm the necessity for the procedure still present. Plan: The risk, benefits, expected outcome, and alternative to the recommended procedure have been discussed with the patient. Patient understands and wants to proceed with the procedure. MO Plan LRYGB Source Note - LUCIA Bernal CNP - 05/03/2023 11:30 AM EDT Images from the original note were not included. Comprehensive Pre Surgical History and Physical ? Name: Anne Marie Peterson : 1995 (Age-27 y.o.) Date of Service: Pt seen/examined on 05/03/2023 Procedure Information Date/Time: 05/10/23 1330 Procedures: LAPAROSCOPIC SANDRA-EN-Y GASTRIC BYPASS WITH LIVER WEDGE BIOPSY, POSSIBLE OPEN (Abdomen) - THIS CASE REQUIRES 180MINS UNLISTED LAPAROSCOPIC PROCEDURE LIVER (Abdomen) Location: [address] Operating Room Surgeons: Memo Campbell MD Chief Complaint: Morbid (severe) obesity due to excess calories (HCC) [E66.01] ASSESSMENT/PLAN: Patient is considered intermediate risk for this intermediate level 2 risk procedure/surgery () with no reducible risk factors. Based on the above evaluation, the benefits of the planned procedure likely exceed the risks. The patient is medically optimized to proceed with the planned procedure without any further cardiopulmonary testing. 1) Morbid (severe) obesity due to excess calories (HCC) [E66.01] - Managed per surgery - Orders per PAT Protocol: EKG, BMP, CBC, A1c and Albumin. UA with reflex to culture ordered - EKG 05/03/2023 reviewed: Sinus rhythm, Low voltage, consider RIGHT ventricular hypertrophy, nonspecific T abnormalities, inferior leads. No acute changes - METS >4 No further evaluation required - From last office visit with Dr. Campbell 2) HTN BP Readings from Last 3 Encounters: 05/03/23 (!) 144/102 04/08/23 (!) 140/88 02/05/23 (!) 154/85 - Elevated, asymptomatic - Managed with metoprolol - Continue follow up with PCP for monitoring and management 3) MOE - Compliant with CPAP/BiPap - Advised to bring PAP machine DOS 4) Anemia - Last CBC 12/14/22: H/H 11.9/38.1 - Managed with ferrous sulfate 5) Hx of Atrial Fibrillation - Reports has had two episodes of A-fib since 11/2022 and again 02/2022 - Was able to convert with medication therapy - Managed with metoprolol - Not on anticoagulant or antiplatelet therapy currently - Asymptomatic at present - Updated EKG in PAT 6) Urinary Frequency - Patient reports concerned for a UTI currently - Reports new onset of frequency and urgency and typically has these symptoms with a UTI - Will add on a UA with reflex to culture Visit Type: Pre-Admission Testing Visit Labs Ordered: YES - PER PAT PROTOCOL Sleep Referral Ordered: NO - NEGATIVE SCREEN PER SLEEP REFERRAL PROTOCOL Total time spent (which include face to face and non face to face encounters) : 40 minutes Toxic drug monitoring/narrow therapeutic index drug monitoring : # Drug name : Ferrous Sulfate # Route administered : PO # Method of monitoring : CBC PAT Protocol referenced includes: 1. Anesthesia Lab Protocol Orders 2. Perioperative Cardiovascular Risk Assessment 3. Anesthesia Assessment 4. Pain Assessment and Acute Pain Service Consult (if appropriate) 5. Medical Clearance/Consult from Internal Medicine (IMS) 6. Shower/Wash Order (for designated surgeries) 7. MOE Screen and Sleep Clinic Referral (if appropriate) History Of Present Illness: 27 y.o. female who we are asked to see/evaluate by Dr. Campbell for pre- operative evaluation prior to ? Case: [id number] Date/Time: 05/10/23 1330 Procedures: LAPAROSCOPIC SANDRA-EN-Y GASTRIC BYPASS WITH LIVER WEDGE BIOPSY, POSSIBLE OPEN (Abdomen) [24197 CPT(R)] - THIS CASE REQUIRES 180MINS UNLISTED LAPAROSCOPIC PROCEDURE LIVER (Abdomen) [68888 CPT(R)] Anesthesia type: General Diagnosis: Morbid (severe) obesity due to excess calories (HCC) [E66.01] Pre-op diagnosis: Morbid (severe) obesity due to excess calories (HCC) [E66.01] Location: [address] Operating Room Surgeons: Memo Campbell MD From last office visit with Dr. Campbell on 04/08/23: The patient is a 27 y.o. year old female with morbid obesity, who stands Height: 5' 5.25 (165.7 cm) ([facility]) tall with a weight of Weight: (!) 403 lb (183 kg) , resulting in a BMI of Body mass index is 66.55 kg/m .. The patient is scheduled to undergo weight loss surgery to treat the following comorbid conditions caused by her morbid obesity: HTN Patient denies exertional chest pain/shortness of breath. Denies dizziness, syncope, lightheadedness. Denies fever, chills, weakness or fatigue. Patient denies any recent illness, infections, or wounds. Patient denies abdominal pain, nausea, vomiting, diarrhea, or constipation. Patient denies hx of CAD, CHF, SC, TIA/CVA, diabetes, COPD, asthma, DVT/PE. Past Medical History: Past Medical History: No date: Anemia No date: Atrial fibrillation (HCC) Comment: 2 episodes No date: Back pain 10/2020: COVID-19 vaccine series completed No date: Daytime sleepiness No date: SANTOS (dyspnea on exertion) No date: Fatigue No date: History of kidney stones No date: History of UTI No date: Incontinence No date: Joint pain, knee No date: PTSD (post-traumatic stress disorder) No date: Sleep apnea, obstructive Comment: uses cpap Past Surgical History: Past Surgical History: No date: COLONOSCOPY 1999: HERNIA REPAIR Comment: Dr. Memo Duke / Ernst Chavez [facility] - inguinal hernia 2010: LAP,CHOLECYSTECTOMY (HISTORICAL) Comment: [facility] Memo [facility] No date: UPPER GASTROINTESTINAL ENDOSCOPY Medications Prior to Admission: Current Outpatient Medications on File Prior to Visit Medication Sig Dispense Refill colestipol (Colestid) 1 g tablet Take 1 g by mouth Daily as needed. Cyanocobalamin (Vitamin B-12) [address] 1 Dose under the tongue daily. ferrous sulfate 325 (65 Fe) MG tablet Take 1 tablet (325 mg) by mouth 2 times daily. 30 tablet 3 magnesium 30 MG tablet Take 30 mg by mouth 2 times daily. metoprolol succinate XL (Toprol-XL) 25 MG 24 hr tablet Take 1 tablet (25 mg) by mouth daily. (Patient taking differently: Take 50 mg by mouth daily.) 90 tablet 3 omeprazole (PriLOSEC) [address] capsule Take 1 capsule (20 mg) by mouth daily. Do not crush or chew.90 capsule 1 Respiratory Therapy Supplies (CareTouch 2 CPAP Hose Dominatrix) misc 10 cm h20 VITAMIN D, CHOLECALCIFEROL, PO Take by mouth daily. No current facility-administered medications on file prior to visit. CHRONIC NARCOTIC USE: No Allergies: Patient has no known allergies. If patient has opioid allergy, is it okay to take Acetaminophen: Yes Social History: TOBACCO: reports that she has never smoked. She has never used smokeless tobacco. ETOH: reports that she does not currently use alcohol. Social History Substance and Sexual Activity Drug Use Never Family History: Family History Problem Relation Name Age of Onset Cancer Mother Hypertension Mother Obesity Mother Heart disease Father Obesity Father Cancer Maternal Grandmother Heart disease Maternal Grandmother Stroke Maternal Grandfather Hypertension Maternal Grandfather Heart disease Maternal Grandfather Diabetes Maternal Grandfather Obesity Maternal Grandfather Anesthesia problems Maternal Grandfather REVIEW OF SYSTEMS: Review of Systems Constitutional: Negative. HENT: Negative. Respiratory: Negative. Cardiovascular: Positive for palpitations (Intermittent). Gastrointestinal: Negative. Endocrine: Negative. Genitourinary: Positive for frequency and urgency. Musculoskeletal: Negative. Skin: Negative. Allergic/Immunologic: Negative. Neurological: Negative. Hematological: Negative. Psychiatric/Behavioral: Negative. Physical Exam: Physical Exam Vitals reviewed. Constitutional: Appearance: Normal appearance. She is obese. HENT: Head: Normocephalic. Mouth/Throat: Mouth: Mucous membranes are moist. Pharynx: Oropharynx is clear. Eyes: Conjunctiva/sclera: Conjunctivae normal. Pupils: Pupils are equal, round, and reactive to light. Cardiovascular: Rate and Rhythm: Normal rate and regular rhythm. Pulses: Normal pulses. Heart sounds: Normal heart sounds. Comments: No Carotid Bruits noted Pulmonary: Effort: Pulmonary effort is normal. Abdominal: General: Abdomen is flat. Bowel sounds are normal. Palpations: Abdomen is soft. Genitourinary: Comments: Deferred Musculoskeletal: General: Normal range of motion. Cervical back: Normal range of motion. Skin: General: Skin is warm and dry. Capillary Refill: Capillary refill takes less than 2 seconds. Neurological: General: No focal deficit present. Mental Status: She is alert and oriented to person, place, and time. Psychiatric: Mood and Affect: Mood normal. Behavior: Behavior normal. Vitals: Vitals Value Taken Time BP 144/102 05/03/23 1141 Temp 37.3 C (99.1 F) 05/03/23 1141 Pulse 103 05/03/23 1141 Resp 12 05/03/23 1141 SpO2 95 % 05/03/23 1141 Labs: Lab Results Component Value Date WBC 10.5 12/14/2022 HGB 11.9 12/14/2022 HCT 38.1 12/14/2022 MCV 70.3 (L) 12/14/2022 PLT 380 12/14/2022 Lab Results Component Value Date NA 137 12/14/2022 K 4.2 12/14/2022 CL 99 12/14/2022 CO2 29 12/14/2022 BUN 13 12/14/2022 CREATININE 0.65 12/14/2022 GLUCOSE 86 12/14/2022 CALCIUM 9.3 12/14/2022 PROT 8.4 (H) 02/23/2023 ALKPHOS 70 12/14/2022 AST 23 12/14/2022 ALT 23 12/14/2022 EGFR >90.0 12/14/2022 Ty's Simple Cardiac Risk Index: Interpretation: 0 Points Class I 0.5% 1 Point Class II 1.3% 2 Points Class III 3.6% 3+ Points Class IV 9.1% [facility] Pain Score: Postop Pain Management Plan (Pain consult ordered?): Pain consult not indicated at this time ? EKG: Yes, 05/03/2023 IMPRESSION: Sinus rhythm Low voltage, precordial leads Consider right ventricular hypertrophy Nonspecific T abnormalities, inferior leads ECHO and EF:Echo 01/12/23 METS: Yes, >4 Electronically signed by: LUCIA Bernal CNP Date: 05/03/2023 at 11:58 AM documented in this encounterSDayton VA Medical [id number] Telephone encounter Note* Telephone Encounter - LUCIA Bernal CNP - 05/04/2023 8:49 AM EDT Patient seen in PAT 05/03/23, scheduled for Sandra-en-Y on 05/10/[address] Campbell. Patient had concerns for UTI symptoms in PAT. UA with reflex to Cx was ordered. UA is positive. Will place patient on Keflex 500mg BID x5 days. Cx is still pending, will address if not Keflex sensitive. Surgeons office aware. Detailed message left on patient's voicemail regarding the above. Callback number for PAT was provided if she has any questions or concerns [facility] [id number] Miscellaneous Notes* Telephone Encounter - LUCIA Bernal CNP - 05/04/2023 8:49 AM EDT Patient seen in PAT 05/03/23, scheduled for Sandra-en-Y on 05/10/[address] Campbell. Patient had concerns for UTI symptoms in PAT. UA with reflex to Cx was ordered. UA is positive. Will place patient on Keflex 500mg BID x5 days. Cx is still pending, will address if not Keflex sensitive. Surgeons office aware. Detailed message left on patient's voicemail regarding the above. Callback number for PAT was provided if she has any questions or concerns documented in this encounterSDayton VA Medical [id number] Telephone encounter Note* Telephone Encounter - SUZANNA Lyons - 04/08/2023 1:31 PM EST Rx sent, thanks [facility] [id number] Miscellaneous Notes* Telephone Encounter - SUZANNA Lyons - 04/08/2023 1:31 PM EST Rx sent, thanks * Telephone Encounter - Zully Anton RN - 04/08/2023 9:46 AM EST Images from the original note were not included. Please see below per Dr. Busby: MD Zully Marina RN; SUZANNA Lyosn But because BMI > 65 will plan for 2 weeks VTE prophylaxis Order pended. * Telephone Encounter - Zully Anton RN - 03/29/2023 12:32 PM EST Lovenox not indicated. DVT Ppx [x] DVT prophylaxis per final preop visit estimated risk Estimated calculated risk: 0.27% DVT PPX Risk Factors [] Male [] Age >= 60 years [x] BMI >= 50 kg/m^2 [] CHF [] Dyspnea at Rest [] Paraplegia [x] Non-Gastric Band Surgery [] Anticipate Operative Time > 3 hours [] Anticipate Length of Stay >3 days Automatic 4 Weeks of Therapy [] Congenital or Acquired Hypercoagulable Conditions (Factor V Leiden, Prothrombin) [] Past History of DVT or PE [] Significant Chronic Venous Insufficiency Calculated Risk Score: 0.27% Risk % Weeks </> BMI 50 SQ Dose [x] Moderate <0.4% 0 None [] High Risk 0.4% - 1% 2 [] 40 mg Lovenox BID [] 60 mg Lovenox BID [] Very High Risk >1% 4 [] 40 mg Lovenox BID [] 60 mg Lovenox BID documented in this [facility]02-15-2024 Telephone encounter Note* Telephone Encounter - Zully Anton RN - 04/08/2023 9:46 AM EST Images from the original note were not included. Please see below per Dr. Busby: MD Zully Marina RN; SUZANNA Lyons But because BMI > 65 will plan for 2 weeks VTE prophylaxis Order pended. [facility] [id number] History of Present illness Narrative* Memo Campbell MD - 04/08/2023 9:10 AM EST [facility] SURGICAL WEIGHT LOSS MANAGEMENT PROGRAM PROGRESS NOTE - REVIEW TESTING Patient History/Assessment Summary: The patient is a 27 y.o. year old female with morbid obesity, who stands Height: 5' 5.25 (165.7 cm) (bcc) tall with a weight of Weight: (!) 403 lb (183 kg) , resulting in a BMI of Body mass index is66.55 kg/m .. The patient is scheduled to undergo weight loss surgery to treat the following comorbid conditions caused by her morbid obesity: HTN She attended the weight loss surgery seminar prior to their initial surgical evaluation, and attended pre-op virtual education class. The patient is scheduled for Laparoscopic Sandra-en-Y Gastric Bypass and Laparoscopic Liver Biopsy on05/10/23. She is here today to review the details of surgery prior to their date of surgery: The patient acknowledges and understands the risks, benefits, and options we have discussed, as outlined in the Additional Informed Consent for this procedure. Patient also understands the importanceof pre and post-operative recommendations, including the preop diet and regular post-operative follow up care. The importance of ambulation and incentive spirometry was also discussed. All questions of this patient and any family members present have been answered to their satisfaction. Physical Examination: BP (!) 140/88 Pulse 98 Temp 36.6 C (97.9 F) Resp 16 Ht 5' 5.25 (1.657 m) Comment: bcc Wt(!) 403 lb (183 kg) BMI 66.55 kg/m General: This patient is awake, alert, and oriented, and is in no apparent distress. Abdomen: Obese, soft, non-tender, non-distended without masses/ No evidence of abdominal hernia / Incisions consistent with previous surgeries. Scars from lap gerardo. Head and Neck: Obese, normocephalic and atraumatic/soft and supple Extremities: No cyanosis, clubbing or edema/ No calf tenderness/No restrictions of movement, is ambulatory without assistance. Neurological: Intact x 4 extremities, no focal deficits notes. Skin: No rashes or lesions noted Surgical History: Past Surgical History: Procedure Laterality Date HERNIA REPAIR 1999 Dr. Memo Duke / Ernst Chavez [facility] - inguinal hernia LAP,CHOLECYSTECTOMY (HISTORICAL) 2009 Dr. Memo Duke / Ernst Chavez [facility] Recommendations: We spent a great deal of time discussing the risks and benefits of Laparoscopic Sandra-en-Y Gastric Bypass and Laparoscopic Liver Biopsy, including but not limited to injury to intra-abdominal organs, breakdown of the gastric staple line, the need for re-operative therapy, prolonged hospitalization, mechanical ventilation, and . We discussed the possibility of bleeding, the need for blood transfusions, blood clots, hospital-acquired and intra-abdominal infection, anastomotic stricture, and worsening GERD. And we discussed the need for post-operative visit compliance, behavior modificationsand diet changes, protein and vitamin supplementation, as well as routine scheduled and dedicated exercise. We discussed the potential weight loss benefit to approximately 60-70% of her excess body weight at 12-18 months post-op, as well as the possibility of insufficient weight loss or weight gainafter 2 years post-operative time. Upon completion of all required pre-operative testing we will submit for insurance pre-authorization. The following data was reviewed and the results discussed with the patient: PATIENT SUMMARY Anne Marie Campbell 26 y.o. female with Body mass index is 63.28 kg/m . Planned Procedures: Laparoscopic Sandra-en-Y Gastric Bypass DM[] HTN[] MOE[] GERD[] HL[] OA[] TOB[] Date of Surgery: 05/10/[address] INITIAL PRE-OP TESTING ORDERS/ RESULTS Labwork [x] CMP, TSH, Fasting Lipid Profile, Mg, Zinc, Vit B1 (whole blood), Vit B12, 25-OH Vit D, Fe, Ferritin, Folate, Hgb A1c 12/14/22 tsh ok EGD [x] Dx: [] GERD [x] Dyspepsia [] Other [] Not ordered 01/12/23-gastritis, no HH Pathology [x] H. pylori [x] Negative [] Positive [] Stool Antigen UGI [] US Abdomen [] [x] S/p gerardo [] Not ordered MOE eval [] [] On CPAP / Obtain settings [id number] Toxicology [] [] Urine drug screen/ETOH [] Nicotine Additional [] a1c 12/14/22 5.8 INITIAL CONSULTATIONS ORDERED CLEARANCE / MANAGEMENT Psychology [x] Dr. Albin andersen 01/18/23. Cleared 02/23/23 Dietitian [x] Anastasiia Goodwin RD Cleared 11/02/22 Cardiology [x] Dr. Abreu Cleared 12/14/22 Pulmonary [x] Gerstenprema Cleared 01/25/23 Others [] []Heme/Onc []Pain mgmt [x]Other: Please get results of sleep study - scheduled in September 2022 PSD [x] Physician supervised diet: []None [x]3 mos []6 mos Preop diet [x] Preop low calorie diet: []1 wk [x]2 wks [] Other: FINAL PRE-OP TESTING ORDERS RESULTS Labwork [x] [x] CBC [x]BMP []Serum Nicotine / Cotinine EKG [x] CXR [] POST-OP MEDICATIONS Ulcer Ppx [] Omeprazole 20 mg PO []QD Gallstone Ppx [] Ursodiol 300 mg []BID DVT Ppx [x] DVT prophylaxis per final preop visit estimated risk Estimated calculated risk: 0.27% DVT PPX Risk Factors [] Male [] Age >= 60 years [x] BMI >= 50 kg/m^2 [] CHF [] Dyspnea at Rest [] Paraplegia [x] Non-Gastric Band Surgery [] Anticipate Operative Time > 3 hours [] Anticipate Length of Stay >3 days Automatic 4 Weeks of Therapy [] Congenital or Acquired Hypercoagulable Conditions (Factor V Leiden, Prothrombin) [] Past History of DVT or PE [] Significant Chronic Venous Insufficiency Calculated Risk Score: 0.27% Risk % Weeks </> BMI 50 SQ Dose [x] Moderate <0.4% 0 None [] High Risk 0.4% - 1% 2 [] 40 mg Lovenox BID [] 60 mg Lovenox BID [] Very High Risk >1% 4 [] 40 mg Lovenox BID [] 60 mg Lovenox BID DVT Prophylaxis- see above, Lovenox not indicated - but because BMI > 65 will plan for 2 weeks VTE prophylaxis Prescriptions were not provided for Actigall post-operatively. Patient is s/p gerardo. Prescriptions were provided for Gastric Ulcer Prophylaxis post-operatively. H. Pylori: negative, no HH noted on EGD U/S of Abdomen: not ordered as patient is s/p gerardo Cardiology Clearance: Yes Pulmonary Clearance: Yes Pre op Diet Requirement: 2 weeks- start on 04/25/23 I personally performed the evaluation and management of Anne Marie Peterson in the development of a treatment plan for this patient. I personally interviewed the patient and performed an individual physical examination. In addition, I discussed the patient's condition and treatment options with them. Ihave also reviewed and agree with the past medical, family and social history unless otherwise noted. All of the patient's questions were answered. If patient is a woman of childrearing age- 18-50. We discussed the importance of contraception during the first 12-18 months post op, and we discussed that fertility will increase following the procedure. Advised patient to discuss with her OBGYN regarding contraception. Patient counseled with goodunderstanding verbalized. I discussed/counseled the patient regarding the risks and benefits of surgery as well as the preoperative and postoperative care plan for this patient. The patient was seen and examined independentlyand relevant data reviewed by myself. A full chart review was performed. Patient Care Team: Xenia Lane as PCP - General (Family Medicine) Silviano Daley (Obstetrics and Gynecology) Memo Campbell MD as Surgeon (General Surgery) Zully Anton, RN as Registered Nurse (Bariatrics) * Vivian Pool - 04/08/2023 9:10 AM EST [facility] SURGICAL WEIGHT LOSS MANAGEMENT PROGRAM Rooming note: FINAL PRE-OP VISIT Patient: Anne Marie Peterson Date of : 1995 Service Date: 04/08/2023 This patient is unaccompanied for the evaluation today Patient is here today for their final pre-operative visit with surgeon prior to undergoing surgicalweight loss intervention. Patient has the following question(s): pt will ask Weight Metrics: Measurements Weight: (!) 403 lb (183 kg) Height: 5' 5.25 (165.7 cm) ([facility]) BMI (Calculated): 66.7 Percent Excess Weight Loss: 0 Percent Weight Change Since Preop (kg): 182.8 kg Initial Excess Weight (kg): -57.27 kg IBW in kg (Bariatric): 57.27 kg IBW in lb (Bariatric): 126.25 lb Weight Change Since Last Visit: 182.8 kg Percent of IBW: 319.21 Percent EBW (kg): 125.49 kg EBW (lb): 276.75 lb Today's weight has increased from the last visit Falls Risk Assessment Patient does take medications which affect BP or mental status Patient does have newly prescribed or changed dosage of medications within past 30 days which affect BP or mental status Patient has not fallen in the past 2 months Patient does not demonstrate unsteady gait Patient uses the following ambulatory assistive devices: none Patient states the presence of the following traits which increases risk of fall: none Patient is low risk for falls. If high or moderate risk, patient instructed not to ambulate independently in the Center, and cord for call light placed within reach of patient. Patient has had a time when it was difficult for an IV to be placed. Patient is not on home O2 Patient has not has a time when it was difficult to intubate them Patient does have a CPAP/BiPAP machine. If patient DOES have CPAP/BiPAP: [x] CPAP [] BiPAP Settings are 10 cm H2O PAP and settings are entered into the Medication List Completed by: Vivian Pool documented in this [facility]02-05-2024 Telephone encounter Note* Telephone Encounter - Zully Anton RN - 03/29/2023 12:32 PM EST Lovenox not indicated. DVT Ppx [x] DVT prophylaxis per final preop visit estimated risk Estimated calculated risk: 0.27% DVT PPX Risk Factors [] Male [] Age >= 60 years [x] BMI >= 50 kg/m^2 [] CHF [] Dyspnea at Rest [] Paraplegia [x] Non-Gastric Band Surgery [] Anticipate Operative Time > 3 hours [] Anticipate Length of Stay >3 days Automatic 4 Weeks of Therapy [] Congenital or Acquired Hypercoagulable Conditions (Factor V Leiden, Prothrombin) [] Past History of DVT or PE [] Significant Chronic Venous Insufficiency Calculated Risk Score: 0.27% Risk % Weeks </> BMI 50 SQ Dose [x] Moderate <0.4% 0 None [] High Risk 0.4% - 1% 2 [] 40 mg Lovenox BID [] 60 mg Lovenox BID [] Very High Risk >1% 4 [] 40 mg Lovenox BID [] 60 mg Lovenox BID [id number] Telephone encounter Note* Telephone Encounter - Ty Pugh RN - 03/15/2023 9:38 AM EST I returned call to pt. Had to go to local ER on for a-fib w/ RVR and pre- syncope. Emailed records to monty and Dr Abreu. Was pre-syncopal when she tried to stand up in active a-fib w/ RVR. Denies being in a-fib currently. Converted w/ IV metoprolol in the ER. HR running 73 sitting now. Up and walking averaging 112. (Per Apple Watch.) Denies dizziness now. Was having some chest squeezing and SOB w/ the a-fib w/ RVR. Toprol was increased to 50mg every day. Med list updated. [facility] [id number] Miscellaneous Notes* Telephone Encounter - Ty Pugh RN - 03/15/2023 9:38 AM EST I returned call to pt. Had to go to local ER on for a-fib w/ RVR and pre- syncope. Emailed records to scanning and Dr Abreu. Was pre-syncopal when she tried to stand up in active a-fib w/ RVR. Denies being in a-fib currently. Converted w/ IV metoprolol in the ER. HR running 73 sitting now. Up and walking averaging 112. (Per Apple Watch.) Denies dizziness now. Was having some chest squeezing and SOB w/ the a-fib w/ RVR. Toprol was increased to 50mg every day. Med list updated. * Telephone Encounter - Ashanti Chapman MA - 03/15/2023 8:16 AM EST The patient called to let us know she did go to [facility] for a- fib. I have requested records. Anne Marie would like to know if she needs to be seen in the office? Please advise. * Telephone Encounter - Tanja Saenz - 03/11/2023 6:29 AM EST Name of caller requesting page: ANNE MARIE Phone number of caller: [phone] Facility requesting page: PATIENT Reason for page: PT BELIEVES SHE IS IN AFIB AGAIN Provider paged: ANDRAE Santiago name of paged provider: DARRIAN HAIRSTON Page placed to #: SW Time page was sent or provider contacted: 6:32A Method of contact: SW Page content: PT BELIEVES SHE IS IN AFIB AGAIN documented in this [facility]01-22-2024 Telephone encounter Note* Telephone Encounter - Ashanti Chapman MA - 03/15/2023 8:16 AM EST The patient called to let us know she did go to [facility] for a- fib. I have requested records. Anne Marie would like to know if she needs to be seen in the office? Please advise. [facility] HospitalBqjokc12-15-9901 Telephone encounter Note* Telephone Encounter - Balwinder Lam RN - 03/13/2023 5:23 PM EST S: [facility] regarding problem B: Per nurse triage ticket created by [facility] A: Patient disconnected prior to speaking with nurse. No answer upon return call to patient. R: Left voice message for patient to call the office if assistance is still needed.. Reason for Disposition Message left on unidentified voice mail. Phone number verified. Protocols used: No Contact or Duplicate Contact Pygd-OAKPC-DR [facility] [id number] Miscellaneous Notes* Telephone Encounter - Balwinder Lam RN - 03/13/2023 5:23 PM EST S: Patient called the [facility] regarding problem B: Per nurse triage ticket created by [facility] A: Patient disconnected prior to speaking with nurse. No answer upon return call to patient. R: Left voice message for patient to call the office if assistance is still needed.. Reason for Disposition Message left on unidentified voice mail. Phone number verified. Protocols used: No Contact or Duplicate Contact Pteg-SZXZM-PB documented in this [facility]01-18-2024 Telephone encounter Note* Telephone Encounter - Tanja Saenz - 03/11/2023 6:29 AM EST Name of caller requesting page: ANNE MARIE Phone number of caller: [phone] Facility requesting page: PATIENT Reason for page: PT BELIEVES SHE IS IN AFIB AGAIN Provider paged: ANDRAE Santiago name of paged provider: DARRIAN HAIRSTON Page placed to #: SW Time page was sent or provider contacted: 6:32A Method of contact: SW Page content: PT BELIEVES SHE IS IN AFIB AGAIN [facility] [id number] Miscellaneous Notes* Telephone Encounter - Tanja Saenz - 03/11/2023 6:29 AM EST Name of caller requesting page: ANNE MARIE Phone number of caller: [phone] Facility requesting page: PATIENT Reason for page: PT BELIEVES SHE IS IN AFIB AGAIN Provider paged: ANDRAE Santiago name of paged provider: DARRIAN HAIRSTON Page placed to #: SW Time page was sent or provider contacted: 6:32A Method of contact: SW Page content: PT BELIEVES SHE IS IN AFIB AGAIN documented in this [facility]SD[facility] CenterEcmcpt22-74-9394 Telephone encounter Note* Telephone Encounter - LUCIA Chin CNP - 02/25/2023 9:07 AM EST Noted, signed, thanks.l [facility] [id number] Miscellaneous Notes* Telephone Encounter - LUCIA Chin CNP - 02/25/2023 9:07 AM EST Noted, signed, thanks.l * Telephone Encounter - Kimberley Frank RD - 02/24/2023 3:48 PM EST Please see MyChart communication between pt and this RD. Plan: Per protocol, patient to complete Rx of 50,000 IU vitamin D weekly for 8 weeks. Once completed, patient to start OTC 4,000 IU vitamin D daily. Rx pending. Please sign. Thank you. Begin Vitamin B12 (SL): 500 mcg/day Will monitor labs in 3 months. Orders pending. Please sign. Thank you! * Telephone Encounter - Kimberley Frank RD - 02/24/2023 2:11 PM EST Pre-op_JZ 02/23/2023 Vitamin D: <13 (L; was same 2 mo ago) Vitamin B12: 302 (L end NL; was 260 two mo ago) Total Protein: 8.4 (H; was 8.7 two mo ago) Ferritin: 16 (L end NL; was 14 two mo ago) Iron: 48 (WNL; was 31 two mo ago) Sent NodePing message regarding labs. documented in this [facility]01-03-2024 Telephone encounter Note* Telephone Encounter - Kimberley Frank RD - 02/24/2023 3:48 PM EST Please see NodePing communication between pt and this RD. Plan: Per protocol, patient to complete Rx of 50,000 IU vitamin D weekly for 8 weeks. Once completed, patient to start OTC 4,000 IU vitamin D daily. Rx pending. Please sign. Thank you. Begin Vitamin B12 (SL): 500 mcg/day Will monitor labs in 3 months. Orders pending. Please sign. Thank you! [facility] [id number] Telephone encounter Note* Telephone Encounter - Kimberley Frank RD - 02/24/2023 2:11 PM EST Pre-op_JZ 02/23/2023 Vitamin D: <13 (L; was same 2 mo ago) Vitamin B12: 302 (L end NL; was 260 two mo ago) Total Protein: 8.4 (H; was 8.7 two mo ago) Ferritin: 16 (L end NL; was 14 two mo ago) Iron: 48 (WNL; was 31 two mo ago) Sent NodePing message regarding labs. [employer] [id number] History of Present illness Narrative* Debbie Menendez MA - 02/05/2023 12:40 PM EST [facility] SURGICAL WEIGHT LOSS MANAGEMENT PROGRAM PROGRESS NOTE FOLLOW UP Patient: Anne Marie Peterson Date of : 1995 Service Date: 02/05/2023 [place] Visit number: 4 of 3 Pre Program Weight Metrics Date of Initial Consultation:@FLOWLAST(8961)@ Initial Weight: @FLOWLAST([id number])@ Initial BMI: @FLOWLAST([id number])@ [place] Body Weight: @FLOWLAST([id number])@ Excess Body Weight: @FLOWLAST([id number])@ Follow Up Weight Metrics Last Three Weights Including Today's Weight: Wt Readings from Last 3 Encounters: 02/05/23 (!) 394 lb 3.2 oz (179 kg) 01/25/23 (!) 395 lb (179 kg) 01/18/23 (!) 397 lb 9.6 oz (180 kg) Today's BMI: %EBWL: Weight Chance Since Last Visit: Weight Change from Initial DE/SPR Weight: Patient has the following question(s): none Falls Risk Assessment Patient doestake medications which affect BP or mental status Patient does not have newly prescribed or changed dosage of medications within past 30 days which affect BP or mental status Patient has not fallen in the past 2 months Patient does notdemonstrate unsteady gait Patient uses the following ambulatory assistive devices: NONE Patient states the presence of the following traits which increases risk of fall: NONE Patient is not on home O2 Completed by: Debbie Menendez MA * Mary Dias MD - 02/05/2023 12:40 PM EST HPI, PHYSICAL EXAM, AND PLAN Patient is here today for follow up of their physician supervised diet and exercise in preparation for weight loss surgery. Weight trend since last visit: lost 3 lbs in 1 month. Pt doing well with diet, has a good understanding. This patient's excess weight is causing the following co-morbid conditions at this time: Obesity and Other preDM, LBP Plan: Physical Examination: BP (!) 154/85 Pulse 95 Ht 5' 5.25 (1.657 m) Wt (!) 394 lb 3.2 oz (179 kg) BMI 65.10 kg/m General: This patient is calm and pleasant General: This patient is awake, alert, and oriented, and is in no apparent distress. Extremities: No cyanosis, clubbing or edema/ No calf tenderness/No restrictions of movement, is ambulatory without assistance. Neurological: Intact x 4 extremities, no focal deficits notes. Skin: No rashes or lesions noted. Assessment of Current Diet and Exercise Current Diet This patient s current diet is: none Her diet contains adequate amounts of protein, inadequate amounts of healthy fats, adequate amountsof green, leafy vegetables, and adequate amounts of fruits. Her comfort foods include: none Current Activity This patient currently walks daily for exercise. Current Eating Behaviors This patients demonstrates the following behaviors as they relate to her eating: none She eats approximately 3-4 times per day. Plan: Diagnosis Plan 1. Prediabetes 2. Low back pain, unspecified back pain laterality, unspecified chronicity, unspecified whether sciatica present 3. BMI 60.0-69.9, adult (HCC) 4. Morbid obesity due to excess calories (HCC) preDM- stable, con't low glycemic diet, plan for WLS. LBP- occ sx, will monitor, work on wt loss. Morbid obesity- Stable chronic, pt doing well with diet, has a good understanding. Pt doing much better now with emotional eating. FF completed, F/U 18 months POP. MDM- pt's medical conditions place them at moderate risk of complications, morbidity and mortality. Advised patient that She should continue to adhere to regular monthly visits to meet the requirements of her insurance company. Additionally, She must adopt meal plan recommendations to demonstrate readiness for the changes that will be required following surgery. Patient's eating behaviors does demonstrates adoption of eating plan recommendations. Physician Diet Recommendations provided in Patient Instructions Patient: [] To return in one month for follow up [x] Has completed insurance required monthly diet and exercise series [] Needs to continue monthly visits until authorization/surgery date obtained. (Luis) Other: Current Meds Patient's Medications New Prescriptions No medications on file Previous Medications CYANOCOBALAMIN (VITAMIN B-12) [address] 1 Dose under the tongue daily. FERROUS SULFATE 325 (65 FE) MG TABLET Take 1 tablet (325 mg) by mouth 2 times daily. METOPROLOL SUCCINATE XL (TOPROL-XL) 25 MG 24 HR TABLET Take 1 tablet (25 mg) by mouth daily. Modified Medications No medications on file Discontinued Medications No medications on file documented in this [facility]12-04-2023 History of Present illness Narrative* Carmen Hirsch PA-C - 01/25/2023 10:40 AM EST Visit type: New patient. History of Present Illness: General Pertinent negatives include no chest pain, chills, coughing, fatigue, fever, nausea or vomiting. History of Present Illness: Anne Marie Peterson is a 27 y.o. female patient being seen for pre-operative pulmonary clearance. She was recently seen by Dr. Campbell and plans to undergo Laparoscopic Sandra-en-Y Gastric Bypass in the near future. She feels well today. Hx of underlying lung disease: none Respiratory symptoms: none. Denies shortness of breath, coughing, wheezing. Denies hx of seasonal allergies. 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 SpO2 <88% for 2.5 minutes. Prescribed CPAP 10 cm H2O. She has difficulty remembering to put her CPAP on before she falls asleep. She feels she sleeps worse with CPAP on. Has nasal mask- feels it does not fit well. [place] Sleepiness Scale: 5 Sleep apnea symptoms: Bedtime - 10 pm Sleep latency - 20 minutes Wake time - 5 am. Feels that she sleeps well. Snoring - none Apneas witnessed- none, Denies orthopnea. AM headaches- none Daytime somnolence- sometimes. Fatigue - yes STOPBang Questionnaire: SNORING: Do you snore loudly (loud enough to be heard through closed doors or your bed- partner elbows you for snoring at night)? no TIRED: Do you often feel tired, fatigued or sleepy during the daytime (such as falling asleep during driving or talking to someone)? no OBSERVED: Has anyone observed you stop breathing or choking/gasping during your sleep? no PRESSURE: Do you have or are you being treated for high blood pressure? no BODY MASS INDEX >35: Body mass index is 65.73 kg/m . yes AGE >50: 27 y.o. no NECK SIZE LARGE: (measured around the Yonny's apple) For male, is your shirt collar 17 inches or larger? For female, is your shirt collar 16 inches or larger? yes GENDER: Male no SCORE: 0-2 low risk Score 1 point for each YES answer: Baseline Exercise tolerance/MMRC score( Bold ) MMRC Dyspnea Scale Grade Description of Breathlessness 0 I only get breathless with strenuous exercise. 1 I get short of breath when hurrying on level ground or walking up a slight hill. 2 On level ground, I walk slower than people of the same age because of breathlessness, or have to stop for breath when walking at my own pace. 3 I stop for breath after walking about 100 yards or after a few minutes on level ground. 4 I am too breathless to leave the house or I am breathless when dressing. Past Medical History: Past Medical History: Diagnosis Date Anemia Back pain Daytime sleepiness SANTOS (dyspnea on exertion) Fatigue History of kidney stones History of UTI Incontinence Joint pain, knee Sleep apnea, obstructive Social History: Social History Socioeconomic History Marital status: Significant Other Tobacco Use Smoking status: Never Smokeless tobacco: Never Vaping Use Vaping Use: Never used Substance and Sexual Activity Alcohol use: Not Currently Drug use: Never Sexual activity: Yes Partners: Male control/protection: I.U.D. Family History: Family History Problem Relation Name Age of Onset Cancer Mother Hypertension Mother Obesity Mother Heart disease Father Obesity Father Cancer Maternal Grandmother Heart disease Maternal Grandmother Stroke Maternal Grandfather Hypertension Maternal Grandfather Heart disease Maternal Grandfather Diabetes Maternal Grandfather Obesity Maternal Grandfather Anesthesia problems Maternal Grandfather ROS: Review of Systems Constitutional: Negative for chills, fatigue and fever. Respiratory: Negative for cough, chest tightness, shortness of breath and wheezing. Cardiovascular: Negative for chest pain, palpitations and leg swelling. Gastrointestinal: Negative for diarrhea, nausea and vomiting. Psychiatric/Behavioral: Negative for sleep disturbance. All other systems reviewed and are negative. Medications: @MEDCMED@ Allergies: No Known Allergies Vital Signs: BP 128/84 (BP Location: Right arm, Patient Position: Sitting, BP Cuff Size: Adult) Pulse 88 Ht 5' 5 (1.651 m) Wt (!) 395 lb (179 kg) SpO2 96% BMI 65.73 kg/m Physical Exam: Physical Exam Constitutional: Appearance: Normal appearance. She is obese. HENT: Head: Normocephalic and atraumatic. Eyes: Extraocular Movements: Extraocular movements intact. Pupils: Pupils are equal, round, and reactive to light. Cardiovascular: Rate and Rhythm: Normal rate and regular rhythm. Heart sounds: Normal heart sounds. Pulmonary: Effort: Pulmonary effort is normal. Breath sounds: Normal breath sounds. No wheezing, rhonchi or rales. Musculoskeletal: Right lower leg: No edema. Left lower leg: No edema. Neurological: Mental Status: She is alert and oriented to person, place, and time. Mental status is at baseline. Psychiatric: Mood and Affect: Mood normal. Speech: Speech normal. Behavior: Behavior normal. Assessment and Plan: Diagnosis Plan 1. Pre-operative clearance Planning gastric bypass in the near future. Pulmonary status is currently optimized. Never smoked, denies respiratory symptoms. She is intermediate risk for planned procedure, ok to proceed from pulmonary standpoint. - Recommend early ambulation, pulmonary toilet to present post-operative complications. - Patient to bring CPAP with her on the day of surgery. 2. MOE (obstructive sleep apnea) Moderate MOE, no hypoxia noted on sleep study. Difficulty tolerating nasal mask. - Will order nasal pillows to see if this improved comfort - Continue CPAP on current settings. 3. Morbid obesity with BMI of 60.0-69.9, adult ([facility]) BMI 65.73, will benefit from weight loss. Follow-up per Dr. Campbell. Follow-up: Follow up in about 6 months (around 07/27/2023) for MOE f/u. documented in this [facility]11-29-2023 Telephone encounter Note* Telephone Encounter - Ravi Abreu MD - 01/20/2023 4:01 PM EST Left a message about her Echo, normal LVEF/function and normal valve function. Likely has a small PFO but this is common in 25% of people and nothing to worry about. PGY6, Cardiovascular Fellow at 4:01 PM [facility] [employer] Work Phone: [phone] 235-481511-29-2023 Miscellaneous Notes* Telephone Encounter - Ravi Abreu MD - 01/20/2023 4:01 PM EST Left a message about her Echo, normal LVEF/function and normal valve function. Likely has a small PFO but this is common in 25% of people and nothing to worry about. PGY6, Cardiovascular Fellow at 4:01 PM documented in this [facility]11-27-2023 History of Present illness Narrative* Hyacinth Romo MA - 01/18/2023 9:30 AM EST [facility] SURGICAL WEIGHT LOSS MANAGEMENT PROGRAM PROGRESS NOTE FOLLOW UP Patient: Anne Marie Peterson Date of : 1995 Service Date: 01/18/2023 DE Visit number: 3 of 3 Pre Program Weight Metrics Date of Initial Consultation:@FLOWLAST(8961)@ Initial Weight: @FLOWLAST([id number])@ Initial BMI: @FLOWLAST([id number])@ [place] Body Weight: @FLOWLAST([id number])@ Excess Body Weight: @FLOWLAST([id number])@ Follow Up Weight Metrics Last Three Weights Including Today's Weight: Wt Readings from Last 3 Encounters: 01/18/23 (!) 397 lb 9.6 oz (180 kg) 01/12/23 (!) 394 lb (179 kg) 01/12/23 (!) 394 lb (179 kg) Today's BMI: BMI: 65.65 %EBWL: % EBWL: -3% Weight Chance Since Last Visit: Weight Change: 6.4 lbs Weight Change from Initial DE/SPR Weight: Total Weight Change: 7.6 lbs Patient has the following question(s): none Falls Risk Assessment Patient doestake medications which affect BP or mental status Patient does have newly prescribed or changed dosage of medications within past 30 days which affect BP or mental status Patient has not fallen in the past 2 months Patient does notdemonstrate unsteady gait Patient uses the following ambulatory assistive devices: none Patient states the presence of the following traits which increases risk of fall: none Patient is not on home O2 Completed by: Hyacinth Romo MA * Mary Dias MD - 01/18/2023 9:30 AM EST HPI, PHYSICAL EXAM, AND PLAN Patient is here today for follow up of their physician supervised diet and exercise in preparation for weight loss surgery. Weight trend since last visit: gained 6 lbs in 1 month. Pt not sure why she gained wt, is eating 3x per day currently, not eating after dinner. Pt does note that she might have been emotionally eating somewhat. This patient's excess weight is causing the following co-morbid conditions at this time: Obesity and Other preDM, LBP Plan: Physical Examination: BP (!) 148/106 Comment: has a headache Pulse 84 Ht 5' 5.25 (1.657 m) Wt (!) 397 lb 9.6 oz (180 kg) BMI 65.66 kg/m General: This patient is calm and pleasant General: This patient is awake, alert, and oriented, and is in no apparent distress. Extremities: No cyanosis, clubbing or edema/ No calf tenderness/No restrictions of movement, is ambulatory without assistance. Neurological: Intact x 4 extremities, no focal deficits notes. Skin: No rashes or lesions noted. Assessment of Current Diet and Exercise Current Diet This patient s current diet is: some refined carbs Her diet contains adequate amounts of protein, inadequate amounts of healthy fats, adequate amountsof green, leafy vegetables, and adequate amounts of fruits. Her comfort foods include:sweets and salty foods Current Activity This patient currently does toning at gym 2x per wk, also walking dog most days. Current Eating Behaviors This patients demonstrates the following behaviors as they relate to her eating: sometimes emotional eating. She eats approximately 3-4 times per day. Her last meal/snack was at 5 pm. Plan: Diagnosis Plan 1. Prediabetes 2. Low back pain, unspecified back pain laterality, unspecified chronicity, unspecified whether sciatica present 3. BMI 60.0-69.9, adult (HCC) 4. Morbid obesity due to excess calories (HCC) preDM- stable, con't low glycemic diet, plan for wLS. LBP- stable, occ sx, not limiting mobility much, will con't to work on wt loss. Morbid obesity- Stable chronic, pt seems to be doing well with diet, but some wt gain. Will hold on FF, F/U 1 monthwith food journal. Some emotional eating, pt to discuss with psychology. F/U 1 month. MDM- pt's medical conditions place them at moderate risk of complications, morbidity and mortality. Advised patient that She should continue to adhere to regular monthly visits to meet the requirements of her insurance company. Additionally, She must adopt meal plan recommendations to demonstrate readiness for the changes that will be required following surgery. Patient's eating behaviors does demonstrates adoption of eating plan recommendations. Physician Diet Recommendations provided in Patient Instructions Patient: [x] To return in one month for follow up [] Has completed insurance required monthly diet and exercise series [] Needs to continue monthly visits until authorization/surgery date obtained. (Luis) Other: Current Meds Patient's Medications New Prescriptions No medications on file Previous Medications CYANOCOBALAMIN (VITAMIN B-12) [address] 1 Dose under the tongue daily. ERGOCALCIFEROL (VITAMIN D2) 1.25 MG (54240 UT) CAPSULE Take 1 capsule (1.25 mg) by mouth 1 (one) time per week for 8 doses. Take one capsule by mouth weekly for 8 weeks. FERROUS SULFATE 325 (65 FE) MG TABLET Take 1 tablet (325 mg) by mouth 2 times daily. METOPROLOL SUCCINATE XL (TOPROL-XL) 25 MG 24 HR TABLET Take 1 tablet (25 mg) by mouth daily. Modified Medications No medications on file Discontinued Medications No medications on file documented in this [facility]11-21-2023 Nurse Note* Osiris Patel RN - 01/12/2023 1:00 PM EST Bubble study complete. [id number] Nurse Note* Osiris Patel RN - 01/12/2023 1:00 PM EST Bubble study complete. documented in this [facility]11-21-2023 Note* Op Note - Memo Campbell MD - 01/12/2023 7:34 AM [facility] Name: Anne Marie Peterson Procedure Date: 01/12/2023 7:34 AM Gender: Female Date of : 1995 Age: 27 Admit Type: Outpatient Note Status: Finalized Endoscopist: Memo Campbell MD, [id number] Procedure: Upper GI endoscopy Indications: Preoperative assessment for bariatric surgery to treat morbid obesity, Morbid Obesity with a BMI of 65 kg/m2 Findings: Mild inflammation was found in the gastric antrum. This was biopsied with a cold forceps for Helicobacter pylori testing. Verification of patient identification for the specimen was done. The gastroesophageal junction was normal. Impression: - Gastritis. Biopsied. - Normal gastroesophageal junction. Recommendation: - Patient has a contact number available for emergencies. The signs and symptoms of potential delayed complications were discussed with the patient. Return to normal activities tomorrow. Written discharge instructions were provided to the patient. - Resume previous diet. - Continue present medications. - Await pathology results. Referring MD: Xenia Lane Medicines: Monitored Anesthesia Care Procedure: Pre-Anesthesia Assessment: - The anesthesia plan was to use monitored anesthesia care (MAC). After obtaining informed consent, the endoscope was passed under direct vision. Throughout the procedure, the patient's blood pressure, pulse, and oxygen saturations were monitored continuously. The Endoscope was introduced through the mouth, and advanced to the second part of duodenum. The upper GI endoscopy was accomplished without difficulty. The patient tolerated the procedure well. Complications: No immediate complications. Procedure Code(s): --- Professional --- 90134, Esophagogastroduodenoscopy, flexible, transoral; with biopsy, single or multiple --- Technical --- 35064, Esophagogastroduodenoscopy, flexible, transoral; with biopsy, single or multiple Diagnosis Code(s): --- Professional --- K29.70, Gastritis, unspecified, without bleeding Z01.818, Encounter for other preprocedural examination E66.01, Morbid (severe) obesity due to excess calories --- Technical --- K29.70, Gastritis, unspecified, without bleeding Z01.818, Encounter for other preprocedural examination E66.01, Morbid (severe) obesity due to excess calories CPT copyright 2021 [employer]. All rights reserved. The codes documented in this report are preliminary and upon clinical program consultant review may be revised to meet current compliance requirements. Attending Participation: I personally performed the entire procedure. Memo Campbell MD 01/12/2023 8:04:55 AM This report has been signed electronically. Number of Addenda: 0 Note Initiated On: 01/12/2023 7:34 AM [id number] Miscellaneous Notes* Op Note - Memo Campbell MD - 01/12/2023 7:34 AM EST [facility] Patient Name: Anne Marie Peterson Procedure Date: 01/12/2023 7:34 AM Gender: Female Date of : 1995 Age: 27 Admit Type: Outpatient Note Status: Finalized Endoscopist: Memo Campbell MD, [id number] Procedure: Upper GI endoscopy Indications: Preoperative assessment for bariatric surgery to treat morbid obesity, Morbid Obesity with a BMI of 65 kg/m2 Findings: Mild inflammation was found in the gastric antrum. This was biopsied with a cold forceps for Helicobacter pylori testing. Verification of patient identification for the specimen was done. The gastroesophageal junction was normal. Impression: - Gastritis. Biopsied. - Normal gastroesophageal junction. Recommendation: - Patient has a contact number available for emergencies. The signs and symptoms of potential delayed complications were discussed with the patient. Return to normal activities tomorrow. Written discharge instructions were provided to the patient. - Resume previous diet. - Continue present medications. - Await pathology results. Referring MD: Xenia Lane Medicines: Monitored Anesthesia Care Procedure: Pre-Anesthesia Assessment: - The anesthesia plan was to use monitored anesthesia care (MAC). After obtaining informed consent, the endoscope was passed under direct vision. Throughout the procedure, the patient's blood pressure, pulse, and oxygen saturations were monitored continuously. The Endoscope was introduced through the mouth, and advanced to the second part of duodenum. The upper GI endoscopy was accomplished without difficulty. The patient tolerated the procedure well. Complications: No immediate complications. Procedure Code(s): --- Professional --- 20017, Esophagogastroduodenoscopy, flexible, transoral; with biopsy, single or multiple --- Technical --- 21325, Esophagogastroduodenoscopy, flexible, transoral; with biopsy, single or multiple Diagnosis Code(s): --- Professional --- K29.70, Gastritis, unspecified, without bleeding Z01.818, Encounter for other preprocedural examination E66.01, Morbid (severe) obesity due to excess calories --- Technical --- K29.70, Gastritis, unspecified, without bleeding Z01.818, Encounter for other preprocedural examination E66.01, Morbid (severe) obesity due to excess calories CPT copyright 2021 [employer]. All rights reserved. The codes documented in this report are preliminary and upon clinical program consultant review may be revised to meet current compliance requirements. Attending Participation: I personally performed the entire procedure. Memo Campbell MD 01/12/2023 8:04:55 AM This report has been signed electronically. Number of Addenda: 0 Note Initiated On: 01/12/2023 7:34 AM documented in this [facility]11-19-2023 History and physical note* Memo Campbell MD - 01/10/2023 6:09 PM EST Images from the original note were not included. [facility] - Surgery [facility] Physicians Surgery PATIENT NAME: Anne Marie Peterson DATE OF : 1995 ADMISSION DATE: 01/12/2023 6:44 AM TODAY'S DATE: 01/12/2023 HISTORY OF PRESENT ILLNESS: The patient is a 27 y.o. female who presents with morbid obesity and a Body mass index is 65.57 kg/m .. She is undergoing upper gastrointestinal endoscopy with biopsies for Helicobacter pylori. I thoroughly reviewed the patient's medical history, family history, social history and review of systemswith the patient today in the office. Please see medical record for pertinent positives. Past Medical History: Past Medical History: Diagnosis Date Anemia Back pain Daytime sleepiness SANTOS (dyspnea on exertion) Fatigue History of kidney stones History of UTI Incontinence Joint pain, knee Past Surgical History: Past Surgical History: Procedure Laterality Date HERNIA REPAIR 1999 Dr. Memo Duke / [facility] - inguinal hernia LAP,CHOLECYSTECTOMY (HISTORICAL) 2009 Dr. Memo Duke / [facility] Current Medications: Current Facility-Administered Medications Medication Dose Route Frequency Provider Last Rate Last Admin sodium chloride 0.9 % infusion 50 mL/hr IntraVENous Continuous SUZANNA Lyons Prior to Admission medications Medication Sig Start Date End Date Taking? Authorizing Provider Cyanocobalamin (Vitamin B-12) [address] 1 Dose under the tongue daily. 12/15/22 Historical Provider, ergocalciferol (Vitamin D2) 1.25 MG (18930 UT) capsule Take 1 capsule (1.25 mg) by mouth 1 (one) time per week for 8 doses. Take one capsule by mouth weekly for 8 weeks. 12/15/22 02/03/23 SUZANNA Lyons ferrous sulfate 325 (65 Fe) MG tablet Take 1 tablet (325 mg) by mouth 2 times daily. 12/15/22 SUZANNA Lyons metoprolol succinate XL (Toprol-XL) 25 MG 24 hr tablet Take 1 tablet (25 mg) by mouth daily. 01/08/23 01/08/24 Delphine Sanchez MD metoprolol succinate XL (Toprol-XL) 25 MG 24 hr tablet Take 25 mg by mouth daily. 12/20/22 01/08/23Historical Provider, Allergies: No Known Allergies Social History: Social History Socioeconomic History Marital status: Significant Other Spouse name: Not on file Number of children: Not on file Years of education: Not on file Highest education level: Not on file Occupational History Not on file Tobacco Use Smoking status: Never Smokeless tobacco: Never Substance and Sexual Activity Alcohol use: Not Currently Drug use: Never Sexual activity: Yes Partners: Male control/protection: I.U.D. Other Topics Concern Not on file Social History Narrative Not on file Social Determinants of Health Financial Resource Strain: Not on file Food Insecurity: Not on file Transportation Needs: Not on file Physical Activity: Not on file Stress: Not on file Social Connections: Not on file Intimate Partner Violence: Not on file Housing Stability: Not on file Family History: Family History Problem Relation Name Age of Onset Cancer Mother Hypertension Mother Obesity Mother Heart disease Father Obesity Father Cancer Maternal Grandmother Heart disease Maternal Grandmother Stroke Maternal Grandfather Hypertension Maternal Grandfather Heart disease Maternal Grandfather Diabetes Maternal Grandfather Obesity Maternal Grandfather Anesthesia problems Maternal Grandfather REVIEW OF SYSTEMS: CONSTITUTIONAL: Negative for fatigue, and unexpected weight change RESPIRATORY: Negative for cough, SOB, and wheezing CARDIOVASCULAR: Negative for chest pains and palpatations GASTROINTESTINAL: Negative for abdominal bloating, constipation, diarrhea. Positive for gastroesophageal reflux disease HEMATOLOGIC/LYMPHATIC: Negative for adenopathy. Does not bruise/bleed easily. NEUROLOGICAL: Negative for seizures and syncope * All other ROS reviewed see HPI for pertinent positives and negatives. PHYSICAL EXAM: VITALS: BP (!) 145/93 Pulse 100 Temp 36.1 C (97 F) (Tympanic) Resp 18 Ht 5' 5 (1.651 m) Wt (!) 394 lb (179 kg) SpO2 97% BMI 65.57 kg/m GENERAL: Oriented to person, place, and time. Appears well nourished. No distress ENT: Normocepalic,atraumatic, without obvious abnormality NECK: supple, symmetrical, trachea midline LUNGS: Resp effort easy and unlabored, breath sounds normal CARDIOVASCULAR: RRR, No murmur ABDOMEN: Soft, non-tender, no open wounds. MUSCULOSKELETAL: Normal range of motion, ambulatory without assistance NEUROLOGIC: No focal neurologic deficits IMPRESSION/RECOMMENDATIONS: Morbid obesity with Body mass index is 65.57 kg/m .. Plan for EGD with Bx Patient counseled on risks, benefits, and alternatives of treatment plan at length. Patient states an understanding and willingness to proceed with plan. [facility] [id number] History and physical note* Memo Campbell MD - 01/10/2023 6:09 PM EST Images from the original note were not included. [facility] - Surgery [facility] Physicians Surgery PATIENT NAME: Anne Marie Peterson DATE OF : 1995 ADMISSION DATE: 01/12/2023 6:44 AM TODAY'S DATE: 01/12/2023 HISTORY OF PRESENT ILLNESS: The patient is a 27 y.o. female who presents with morbid obesity and a Body mass index is 65.57 kg/m .. She is undergoing upper gastrointestinal endoscopy with biopsies for Helicobacter pylori. I thoroughly reviewed the patient's medical history, family history, social history and review of systemswith the patient today in the office. Please see medical record for pertinent positives. Past Medical History: Past Medical History: Diagnosis Date Anemia Back pain Daytime sleepiness SANTOS (dyspnea on exertion) Fatigue History of kidney stones History of UTI Incontinence Joint pain, knee Past Surgical History: Past Surgical History: Procedure Laterality Date HERNIA REPAIR 1999 Dr. Memo Duke / [facility] - inguinal hernia LAP,CHOLECYSTECTOMY (HISTORICAL) 2009 Dr. Memo Duke / [facility] Current Medications: Current Facility-Administered Medications Medication Dose Route Frequency Provider Last Rate Last Admin sodium chloride 0.9 % infusion 50 mL/hr IntraVENous Continuous SUZANNA Lyons Prior to Admission medications Medication Sig Start Date End Date Taking? Authorizing Provider Cyanocobalamin (Vitamin B-12) [address] 1 Dose under the tongue daily. 12/15/22 Historical Provider, ergocalciferol (Vitamin D2) 1.25 MG (19573 UT) capsule Take 1 capsule (1.25 mg) by mouth 1 (one) time per week for 8 doses. Take one capsule by mouth weekly for 8 weeks. 12/15/22 02/03/23 SUZANNA Lyons ferrous sulfate 325 (65 Fe) MG tablet Take 1 tablet (325 mg) by mouth 2 times daily. 12/15/22 SUZANNA Lyons metoprolol succinate XL (Toprol-XL) 25 MG 24 hr tablet Take 1 tablet (25 mg) by mouth daily. 01/08/23 01/08/24 Delphine Sanchez MD metoprolol succinate XL (Toprol-XL) 25 MG 24 hr tablet Take 25 mg by mouth daily. 12/20/22 01/08/23Historical ProviderMD Allergies: No Known Allergies Social History: Social History Socioeconomic History Marital status: Significant Other Spouse name: Not on file Number of children: Not on file Years of education: Not on file Highest education level: Not on file Occupational History Not on file Tobacco Use Smoking status: Never Smokeless tobacco: Never Substance and Sexual Activity Alcohol use: Not Currently Drug use: Never Sexual activity: Yes Partners: Male control/protection: I.U.D. Other Topics Concern Not on file Social History Narrative Not on file Social Determinants of Health Financial Resource Strain: Not on file Food Insecurity: Not on file Transportation Needs: Not on file Physical Activity: Not on file Stress: Not on file Social Connections: Not on file Intimate Partner Violence: Not on file Housing Stability: Not on file Family History: Family History Problem Relation Name Age of Onset Cancer Mother Hypertension Mother Obesity Mother Heart disease Father Obesity Father Cancer Maternal Grandmother Heart disease Maternal Grandmother Stroke Maternal Grandfather Hypertension Maternal Grandfather Heart disease Maternal Grandfather Diabetes Maternal Grandfather Obesity Maternal Grandfather Anesthesia problems Maternal Grandfather REVIEW OF SYSTEMS: CONSTITUTIONAL: Negative for fatigue, and unexpected weight change RESPIRATORY: Negative for cough, SOB, and wheezing CARDIOVASCULAR: Negative for chest pains and palpatations GASTROINTESTINAL: Negative for abdominal bloating, constipation, diarrhea. Positive for gastroesophageal reflux disease HEMATOLOGIC/LYMPHATIC: Negative for adenopathy. Does not bruise/bleed easily. NEUROLOGICAL: Negative for seizures and syncope * All other ROS reviewed see HPI for pertinent positives and negatives. PHYSICAL EXAM: VITALS: BP (!) 145/93 Pulse 100 Temp 36.1 C (97 F) (Tympanic) Resp 18 Ht 5' 5 (1.651 m) Wt (!) 394 lb (179 kg) SpO2 97% BMI 65.57 kg/m GENERAL: Oriented to person, place, and time. Appears well nourished. No distress ENT: Normocepalic,atraumatic, without obvious abnormality NECK: supple, symmetrical, trachea midline LUNGS: Resp effort easy and unlabored, breath sounds normal CARDIOVASCULAR: RRR, No murmur ABDOMEN: Soft, non-tender, no open wounds. MUSCULOSKELETAL: Normal range of motion, ambulatory without assistance NEUROLOGIC: No focal neurologic deficits IMPRESSION/RECOMMENDATIONS: Morbid obesity with Body mass index is 65.57 kg/m .. Plan for EGD with Bx Patient counseled on risks, benefits, and alternatives of treatment plan at length. Patient states an understanding and willingness to proceed with plan. documented in this [facility]11-17-2023 History of Present illness Narrative* Delphine Sanchez MD - 01/08/2023 2:00 PM EST [facility] Cardiology [facility] [address] [address] Dept: [phone] Dept Visit type: Established : 1995 Chief Complaint: Chief Complaint Patient presents with New Patient ER f/u - a-fib w/ RVR History of Present Illness: Anne Marie Peterson is a 27 y.o. female with a history of obesity, prediabetes, HLD and recently diagnosed pAfib who presents for ED follow up. She had developed acute onset palpitations and exertional shortness of breath in late November. She noted on her Apple Watch that A-fib and presented to the ER at an outside hospital where she was found to be in AF w/ RVR. She was given metoprolol and 1 dose of amiodarone, and subsequently converted to sinus rhythm. Since her discharge she has continued taking low-dose metoprolol and she has not had any further episodes , and denies any palpitations, shortness of breath, orthopnea, PND, LE swelling. She is a mother of 4 young children and is constantly ph ysically active, taking her children to sports activities on a regular basis. She can climb severalflights of stairs without issue. Of note, she was recently evaluated in clinic for presurgical assessment for bariatric surgery on 12/14/2022. She was determined to be low risk at that time planning to proceed with her surgery. She has also been seen by sleep medicine and diagnosed with sleep apnea, and is now using CPAP machine on a regular basis. Past Medical History: Past Medical History: Diagnosis Date Anemia Back pain Daytime sleepiness SANTOS (dyspnea on exertion) Fatigue History of kidney stones History of UTI Incontinence Joint pain, knee Past Surgical History Past Surgical History: Procedure Laterality Date HERNIA REPAIR 1999 Dr. Memo Duke / [facility] - inguinal hernia LAP,CHOLECYSTECTOMY (HISTORICAL) 2009 Dr. Memo Duke / [facility] Family History Family History Problem Relation Name Age of Onset Cancer Mother Hypertension Mother Obesity Mother Heart disease Father Obesity Father Cancer Maternal Grandmother Heart disease Maternal Grandmother Stroke Maternal Grandfather Hypertension Maternal Grandfather Heart disease Maternal Grandfather Diabetes Maternal Grandfather Obesity Maternal Grandfather Anesthesia problems Maternal Grandfather Social History Social History Tobacco Use Smoking status: Never Smokeless tobacco: Never Substance Use Topics Alcohol use: Not Currently Drug use: Never Allergies: No Known Allergies Medications: Current Outpatient Medications: Cyanocobalamin (Vitamin B-12) 500 MCG sublingual tablet, Place 1 Dose under the tongue daily., Disp: , Rfl: ergocalciferol (Vitamin D2) 1.25 MG (47601 UT) capsule, Take 1 capsule (1.25 mg) by mouth 1 (one) time per week for 8 doses. Take one capsule by mouth weekly for 8 weeks., Disp: 8 capsule, Rfl: 0 ferrous sulfate 325 (65 Fe) MG tablet, Take 1 tablet (325 mg) by mouth 2 times daily., Disp: 30 tablet, Rfl: 3 metoprolol succinate XL (Toprol-XL) 25 MG 24 hr tablet, Take 1 tablet (25 mg) by mouth daily., Disp: 90 tablet, Rfl: 3 Review of Systems: Review of Systems Constitutional: Negative. HENT: Negative. Eyes: Negative. Respiratory: Negative. Cardiovascular: Negative. Gastrointestinal: Negative. Endocrine: Negative. Musculoskeletal: Negative. Skin: Negative. Allergic/Immunologic: Negative. Neurological: Negative. Hematological: Negative. Psychiatric/Behavioral: Negative. Physical Examination: Vitals: Vitals: 01/08/23 1406 BP: 134/68 Pulse: 100 Weight: (!) 397 lb (180 kg) Height: 5' 5 (1.651 m) Body mass index is 66.06 kg/m . Physical Exam GEN: NAD, AT/AC, MMM ENT: Oral mucosa is pink and moist CARDS: RRR, S1/S2, No R,M,G, JVD normal RESP: CTAB, No rales, ronchi, wheezing VASC: 2+ Peripheral pulses ABD: NT, ND, BS+ Extremities: No LE edema Skin: Warm to touch and well perfused NEURO/PSYCH: A&O x 3, no focal deficits Laboratory Tests: Lab Results Component Value Date WBC 10.5 12/14/2022 HGB 11.9 12/14/2022 HCT 38.1 12/14/2022 MCV 70.3 (L) 12/14/2022 PLT 380 12/14/2022 Lab Results Component Value Date GLUCOSE 86 12/14/2022 CALCIUM 9.3 12/14/2022 NA 137 12/14/2022 K 4.2 12/14/2022 CO2 29 12/14/2022 CL 99 12/14/2022 BUN 13 12/14/2022 CREATININE 0.65 12/14/2022 @LASTCMP@ Lab Results Component Value Date CHOL 184 12/14/2022 Lab Results Component Value Date TRIG 91 12/14/2022 Lab Results Component Value Date HDL 30 (L) 12/14/2022 Lab Results Component Value Date LDLCALC 136 (H) 12/14/2022 No results found for: BNP Cardiac Tests: ECG: Sinus rhythm Last Echo: None Last stress test: NA Last cardiac catheterization: NA Assessment and Plan: Paroxysmal atrial fibrillation MOE on CPAP Prediabetes Mixed hyperlipidemia Morbid obesity Currently doing well on low dose Metoprolol and no longer symptomatic- currently in sinus rythym. Echocardiogram has been ordered to rule out any sturctural heart disease. Pre-Op Risk Assessment prior to Bariatric surgery for obesity: RCRI score is 0 - Patient has a functional capacity of > 4 mets without concerning symptoms Plan: - She is Low risk for a cardiac event during surgery and may proceed to surgery from a cardiovascular perspective. - Counseled on healthy diet modification, activity and exercise - Recommend continuing Metoprolol-XL 25mg daily throughout perioperative period Associated attestation - Monica Landry MD - 01/08/2023 3:25 PM EST I, Dr. Landry, saw and evaluated the patient. I personally obtained the frost and critical portions of the history and physical exam. I reviewed the chart, the fellow's documentation, and discussed the patient with the fellow. I agree with the fellow's medical decision making and have edited the note to reflect my clinical findings and my assessment and plan. documented in this [facility]11-01-2023 Telephone encounter Note* Telephone Encounter - Ashanti Chapman MA - 12/23/2022 9:36 AM EDT The patient returned my call but had to l\m for me, I returned her call and unfortunately had to l\m for her to call the office. [facility] [id number] Miscellaneous Notes* Telephone Encounter - Ashanti Chapman MA - 12/23/2022 9:36 AM EDT The patient returned my call but had to l\m for me, I returned her call and unfortunately had to l\m for her to call the office. * Telephone Encounter - Ashanti Chapman MA - 12/22/2022 1:37 PM EDT I called the patient to schedule her [address] wk follow up per [address]. Abreu and also talk with her about getting her echo scheduled. I had to l\m to call the office. * Telephone Encounter - Ravi Abreu MD - 12/22/2022 10:38 AM EDT Called patient back, she had been having palpitations for about 1 day then went into the ER. She had AF RVR HR up to [address] [facility] that I reviewed myself. She eventually converted after getting Cardizem and 150 of amiodarone. Since it was < [address] she was not place on OAC and Her CHADs VASc is 1 (female). She was placed on aspirin. Is on low dose metoprolol succinate. This has neverhappened before to her and she has not had recurrence. Has a normal TSH. Will schedule her for a visit within a couple weeks. Continue metoprolol. Will order and Echocardiogram. PGY6, Cardiovascular Fellow at 10:49 AM * Telephone Encounter - Ashanti Chapman MA - 12/21/2022 4:28 PM EDT ED records are now scanned into the chart for review. * Telephone Encounter - Ashanti Chapman MA - 12/21/2022 3:07 PM EDT The patient called to inform and to be advised. She had to call 911 last Wednesday due to per the patient, going into a-fib. I have called and requested the ED report and testing be faxed to our office.She did state her chest feels sore today. documented in this [facility]10-31-2023 Telephone encounter Note* Telephone Encounter - Ashanti Chapman MA - 12/22/2022 1:37 PM EDT I called the patient to schedule her 2 wk follow up per [address]. Abreu and also talk with her about getting her echo scheduled. I had to l\m to call the office. [facility] [id number] Miscellaneous Notes* Telephone Encounter - Ashanti Chapman MA - 12/22/2022 1:37 PM EDT I called the patient to schedule her [address] wk follow up per [address] Abreu and also talk with her about getting her echo scheduled. I had to l\m to call the office. * Telephone Encounter - Ravi Abreu MD - 12/22/2022 10:38 AM EDT Called patient back, she had been having palpitations for about 1 day then went into the ER. She had AF RVR HR up to [address] [facility] that I reviewed myself. She eventually converted after getting Cardizem and 150 of amiodarone. Since it was < [address] she [address] on OAC and Her CHADs VASc is 1 (female). She was placed on aspirin. Is on low dose metoprolol succinate. This has neverhappened before to her and she has not had recurrence. Has a normal TSH. Will schedule her for a visit within a couple weeks. Continue metoprolol. Will order and Echocardiogram. PGY6, Cardiovascular Fellow at 10:49 AM * Telephone Encounter - Ashanti Chapman MA - 12/21/2022 4:28 PM EDT ED records are now scanned into the chart for review. * Telephone Encounter - Ashanti Chapman MA - 12/21/2022 3:07 PM EDT The patient called to inform and to be advised. She had to call 911 last Wednesday due to per the patient, going into a-fib. I have called and requested the ED report and testing be faxed to our office.She did state her chest feels sore today. documented in this [facility]10-31-2023 Telephone encounter Note* Telephone Encounter - Ravi Abreu MD - 12/22/2022 10:38 AM EDT Called patient back, she had been having palpitations for about 1 day then went into the ER. She had AF RVR HR up to [address] [facility] that I reviewed myself. She eventually converted after getting Cardizem and 150 of amiodarone. Since it was < [address] she [address] on OAC and Her CHADs VASc is 1 (female). She was placed on aspirin. Is on low dose metoprolol succinate. This has neverhappened before to her and she has not had recurrence. Has a normal TSH. Will schedule her for a visit within a couple weeks. Continue metoprolol. Will order and Echocardiogram. PGY6, Cardiovascular Fellow at 10:49 AM [id number] Telephone encounter Note* Telephone Encounter - Ashanti Chapman MA - 12/21/2022 4:28 PM EDT ED records are now scanned into the chart for review. [id number] Telephone encounter Note* Telephone Encounter - Ashanti Chapman MA - 12/21/2022 3:07 PM EDT The patient called to inform and to be advised. She had to call 911 last Wednesday due to per the patient, going into a-fib. I have called and requested the ED report and testing be faxed to our office.She did state her chest feels sore today. [facility] [id number] Telephone encounter Note* Telephone Encounter - SUZANNA Lyons - 12/15/2022 4:23 PM EDT Signed, thanks [id number] Miscellaneous Notes* Telephone Encounter - SUZANNA Lyons - 12/15/2022 4:23 PM EDT Signed, thanks * Telephone Encounter - Kimberley Frank RD - 12/15/2022 2:09 PM EDT Please see MyChart communication between pt and this RD. Recommend: Per protocol, patient to complete Rx of 50,000 IU vitamin D weekly for 8 weeks. Once completed, patient to start OTC 4,000 IU vitamin D daily. Pharmacy verified. Rx pending. Please sign. Thank you. Ferrous Sulfate: 325 mg BID- Rx Vitamin B12: 500 mcg/day OTC - med list updated Discuss T Pro with PCP Will monitor labs in 3 months. Orders pending. Please sign. Thank you! * Telephone Encounter - Kimberley Frank RD - 12/15/2022 1:45 PM EDT Pre-op_JZ 12/14/2022 Iron: 31 (L) Ferritin: 14 (L end Nl) Hgb: 11.9 (WNL) Hemct: 38.1 (WNL) Vitamin D: <13 (L) Vitamin B12: 260 (L end NL) Total Protein: 8.7 (H) EventBuildert message sent to pt regarding labs. documented in this [facility]10-24-2023 Telephone encounter Note* Telephone Encounter - Kimberley Frank RD - 12/15/2022 2:09 PM EDT Please see MyChart communication between pt and this RD. Recommend: Per protocol, patient to complete Rx of 50,000 IU vitamin D weekly for 8 weeks. Once completed, patient to start OTC 4,000 IU vitamin D daily. Pharmacy verified. Rx pending. Please sign. Thank you. Ferrous Sulfate: 325 mg BID- Rx Vitamin B12: 500 mcg/day OTC - med list updated Discuss T Pro with PCP Will monitor labs in 3 months. Orders pending. Please sign. Thank you! [facility] [id number] Telephone encounter Note* Telephone Encounter - Kimberley Frank RD - 12/15/2022 1:45 PM EDT Pre-op_JZ 12/14/2022 Iron: 31 (L) Ferritin: 14 (L end Nl) Hgb: 11.9 (WNL) Hemct: 38.1 (WNL) Vitamin D: <13 (L) Vitamin B12: 260 (L end NL) Total Protein: 8.7 (H) NodePing message sent to pt regarding labs. [facility] [id number] Note* Addendum Note - Jolly Elaine - 12/14/2022 10:09 AM EDTAddended by: JOLLY ELAINE on: 12/14/2022 10:09 AM Modules accepted: Orders [facility] [id number] Note* Addendum Note - Jolly Elaine - 12/14/2022 10:09 AM EDTAddended by: JOLLY ELAINE on: 12/14/2022 10:09 AM Modules accepted: Orders [facility] [id number] Miscellaneous Notes* Addendum Note - Jolly Elaine - 12/14/2022 10:09 AM EDTAddended by: JOLLY ELAINE on: 12/14/2022 10:09 AM Modules accepted: Orders * Addendum Note - Jolly Elaine - 12/14/2022 10:09 AM EDTAddended by: JOLLY ELAINE on: 12/14/2022 10:09 AM Modules accepted: Orders * Telephone Encounter - Peggy Friedman MA - 10/07/2022 8:51 AM EDT Orders mailed * Addendum Note - SUZANNA Lyons - 10/06/2022 12:34 PM EDTAddended by: MILEY MOISE on: 10/06/2022 12:34 PM Modules accepted: Orders * Telephone Encounter - SUZANNA Lyons - 10/06/2022 12:32 PM EDT Added pulm as note mentions she has sleep study scheduled this month, thanks * Addendum Note - Peggy Friedman MA - 09/30/2022 2:19 PM EDTAddended by: PEGGY FRIEDMAN on: 09/30/2022 02:19 PM Modules accepted: Orders * Telephone Encounter - Peggy Friedman MA - 09/30/2022 2:13 PM EDT Orders pended, pre op checklist scanned, EGD order sent to ALS * Telephone Encounter - Peggy Friedman MA - 09/30/2022 2:12 PM EDT Plan: I have recommended proceeding with the evaluation, workup and hr shared services consultant preoperative consultationsand testing for the primary procedure as outlined below: BARIATRIC AND METABOLIC SURGERY [facility] PATIENT SUMMARY Anne Marie Campbell 26 y.o. female with Body mass index is 63.28 kg/m . Planned Procedures: Laparoscopic Sandra-en-Y Gastric Bypass DM[] HTN[] MOE[] GERD[] HL[] OA[] TOB[] Date of Surgery: [facility] [address] INITIAL PRE-OP TESTING ORDERS/ RESULTS Labwork [x] CMP, TSH, Fasting Lipid Profile, Mg, Zinc, Vit B1 (whole blood), Vit B12, 25-OH Vit D, Fe, Ferritin, Folate, Hgb A1c EGD [x] Dx: [] GERD [x] Dyspepsia [] Other [] Not ordered Pathology [x] H. pylori [] Negative [] Positive [] Stool Antigen UGI [] US Abdomen [] [x] S/p gerardo [] Not ordered MOE eval [] [] On CPAP / Obtain settings Toxicology [] [] Urine drug screen/ETOH [] Nicotine Additional [] INITIAL CONSULTATIONS ORDERED CLEARANCE / MANAGEMENT Psychology [x] Dietitian [x] Cardiology [x] Pulmonary [] Others [] []Heme/Onc []Pain mgmt [x]Other: Please get results of sleep study - scheduled in September 2022 PSD [x] Physician supervised diet: []None [x]3 mos []6 mos Preop diet [x] Preop low calorie diet: []1 wk [x]2 wks [] Other: FINAL PRE-OP TESTING ORDERS RESULTS Labwork [x] [x] CBC [x]BMP []Serum Nicotine / Cotinine EKG [x] CXR [] POST-OP MEDICATIONS Ulcer Ppx [] Omeprazole 20 mg PO []QD Gallstone Ppx [] Ursodiol 300 mg []BID DVT Ppx [] DVT prophylaxis per final preop visit estimated risk Estimated calculated risk: % Schedule final pre-operative office visit with surgeon, pre-operative education class, and pre-operative exercise class prior to date of surgery I met with her today to discuss risks and benefits of laparoscopic weight loss surgery, the risks and benefits are outlined as above and visual aids were used to describe the procedure. I personally performed the evaluation and management of Anne Marie Peterson in the development of a treatment plan for this patient. I personally interviewed the patient and performed an individual physical examination. In addition, I discussed the patient's condition and treatment options with them. Ihave also reviewed and agree with the past medical, family and social history unless otherwise noted. All of the patient's questions were answered. I discussed/counseled the patient regarding the risks and benefits of surgery as well as the preoperative and postoperative care plan for this patient. The patient was seen and examined independentlyand relevant data reviewed by myself. A full chart review was performed. Due to the complexity of the patients condition as well as having at least one medical condition as listed above in medical history that is progressing despite medical management, this patient is considered high medical decision making and surgical intervention is necessary to help decrease the risk of continued chronic illness. The patient was seen and examined independently and relevant data reviewed by myself. A full chart review was performed. Patient Care Team: Xenia Lane as PCP - General (Family Medicine) Silviano Daley (Obstetrics and Gynecology) * Telephone Encounter - Barbara Ojeda Jefe - 09/10/2022 1:22 PM EDT Initial New [facility] surgical patient Navigation & Financial Counseling Discussion Patient Communication: In office SURGEON: [x] JACINTA [] AD [] MP [] TB [] LM PROCEDURE: [] LRYGB [] LSG [] HANNAH-S [] HANNAH [] UNDECIDED [] REV: SPECIFY: Confirmed pt wants to continue with surgical program/plan [] YES [] NO (complete program withdrawalnote/process) CO-MORBIDS: [] NONE [] DM []HTN [] MOE []GERD [] OTH: PRIVATE PAY: [] NO []YES DATE OF INITIAL BENEFITS VERIFICATION: TRANSFER FU: [] YES [] NO PRIMARY INSURANCE: Payor: [facility] MEDICAID / Plan: [facility] MEDICAID ODM / Product Type: Medicaid HMO / BENEFIT ON PLAN: [] NO [] YES BENEFIT MAX: [] NO [] YES -- BENEFIT MAX: $ EMPLOYER: DIET AND EXERCISE (DE) REQUIREMENT PRIMARY [] NONE [x]3M [] 6M []9M [] Medicare 4 Months [] SPR (3M) []OTHER: SECONDARY INSURANCE: BENEFIT ON PLAN: [] NO [] YES BENEFIT MAX: [] NO [] YES -- BENEFIT MAX: $ AUTH REQUIRED FROM SECONDARY [] NO [] YES DIET AND EXERCISE REQUIREMENT SECONDARY [] NONE []3M [] 6M [] Medicare 4 months [] SPR (3M) []OTHER: ___ [x] Discussed with patient: Financial cost overview (document signed and pt given copy at new pt consult visit with surgeon), Initial appointments: Bariatric Nutrition Assessment (BNA) & Diet and Exercise (DE) Patient to look for yellow envelope in mail. This yellow envelope will contain orders for labs, testing and required clearances. Pt encouraged to complete early in program to prevent delays. Encourage blood work to be draw by 1st DE appointment. [x] Reviewed OOP cost, including: [] Optifast cost of approximately $130-140/week x weeks immediately prior to surgery - used to induce rapid weight loss which results in decrease in size of liver and therefore facilitates laparoscopically surgery approach. [x] Overview of inpatient admission benefits - estimated inpatient co-pays, deductibles and/or co-insurance - Estimated OOP costs form reviewed with patient, and copy given to patient at new pt visit. [x] Reviewed next steps with patient: 1) Scheduled at new pt surgeon visit: Secondary Art Teacher (RD) for a Nutrition Assessment (BNA) and Pre-operative Diet and Exercise (DE)appointment #1. [x] Patient reminded to arrive 15 minutes early for check in. Late arrivals may need to be rescheduled. 2) Schedule: Diet and Exercise Apt #2 only scheduled after initial BNA and DE completed, 3) Behavioral Health apt scheduled after DE started. Reviewed rational and goal of Behavioral Health appointments. 4) [x] Reinforced need to cancel any WMI appointments 48 hours in advance. Cautioned NS/Same day cancellations may result in delay in program or program completion hold. Noted: DE series needs to be a monthly series or insurance company may require repeat of the entire series. 5) [x] Smoker/tobacco products including vaping: reviewed need for cessation before surgery clearance and life long abstinence after surgery for best outcomes. Patient navigation to surgery: [x] Explained to patient that average time from initial consult to date of surgery can be 6-8 months. - Process can take longer if there are cancelled appointments, delays in testing and/or additional clearances that needs to be completed. - Reviewed importance of patient active engagement in making and keeping appointments to keep the process moving. - Reinforced need to cancel appointments at least 48 hours in advance. Reviewed that instances of No Shows and Same Day Appointment Cancellations may result in program/surgery delay or hold. [x] Patient advised of importance of having voicemail and MyChart for office communications and lab/testing results before and after surgery. documented in this [facility]10-23-2023 History of Present illness Narrative* Debbie Menendez MA - 12/14/2022 8:50 AM EDT [facility] SURGICAL WEIGHT LOSS MANAGEMENT PROGRAM PROGRESS NOTE FOLLOW UP Patient: Anne Marie Peterson Date of : 1995 Service Date: 12/14/2022 DE Visit number: 2 of 3 Pre Program Weight Metrics Date of Initial Consultation:@FLOWLAST([id number])@ Initial Weight: @FLOWLAST([id number])@ Initial BMI: @FLOWLAST([id number])@ [place] Body Weight: @FLOWLAST([id number])@ Excess Body Weight: @FLOWLAST([id number])@ Follow Up Weight Metrics Last Three Weights Including Today's Weight: Wt Readings from Last 3 Encounters: 11/02/22 (!) 390 lb (177 kg) 09/10/22 (!) 383 lb 3.2 oz (174 kg) Today's BMI: %EBWL: Weight Chance Since Last Visit: Weight Change from Initial DE/SPR Weight: Patient has the following question(s): none Falls Risk Assessment Patient doestake medications which affect BP or mental status Patient does not have newly prescribed or changed dosage of medications within past 30 days which affect BP or mental status Patient has not fallen in the past 2 months Patient does notdemonstrate unsteady gait Patient uses the following ambulatory assistive devices: NONE Patient states the presence of the following traits which increases risk of fall: NONE Patient is not on home O2 Completed by: Debbie Menendez MA * Mary Dias MD - 12/14/2022 8:50 AM EDT HPI, PHYSICAL EXAM, AND PLAN Patient is here today for follow up of their physician supervised diet and exercise in preparation for weight loss surgery. Weight trend since last visit: gained 1 lb in 1 month. Pt finds that she has a longstanding pattern of self neglect. Sometimes doesn't eat lunch, often eats dinner after her 4 kids and sometimes fast food. This patient's excess weight is causing the following co-morbid conditions at this time: Obesity and Other preDM, LBP Plan: Physical Examination: BP 118/74 Pulse 92 Ht 5' 5.25 (1.657 m) Wt (!) 391 lb 3.2 oz (177 kg) BMI 64.60 kg/m General: This patient is calm and pleasant General: This patient is awake, alert, and oriented, and is in no apparent distress. Extremities: No cyanosis, clubbing or edema/ No calf tenderness/No restrictions of movement, is ambulatory without assistance. Neurological: Intact x 4 extremities, no focal deficits notes. Skin: No rashes or lesions noted. Assessment of Current Diet and Exercise Current Diet This patient s current diet is: some processed carbs Her diet contains adequate amounts of protein, inadequate amounts of healthy fats, inadequate amounts of green, leafy vegetables, and inadequate amounts of fruits. Her comfort foods include: fast food Current Activity This patient currently walks at work for activity. Current Eating Behaviors This patients demonstrates the following behaviors as they relate to her eating: eats late, fast food, sometimes skips lunch. She eats approximately 3-4 times per day. Plan: Diagnosis Plan 1. Prediabetes 2. Low back pain, unspecified back pain laterality, unspecified chronicity, unspecified whether sciatica present 3. BMI 60.0-69.9, adult (HCC) 4. Morbid obesity due to excess calories (HCC) preDM- stable, con't low glycemic diet, plan for WLS. LBP- stable, occ sx, will monitor, work on wt loss. Morbid obesity- Stable chronic, pt with a chronic patten of self neglect, often doesn't get early meals and sometimes fast food at night, usually eats after her 4 kids are done. All of this discussed, currently, pt's eating pattern not consistent with success after WLS, this all communicated with pt. Pt encouragedto discuss further with psychology. F/U 1 month. MDM- pt's medical conditions place them at moderate risk of complications, morbidity and mortality. Advised patient that She should continue to adhere to regular monthly visits to meet the requirements of her insurance company. Additionally, She must adopt meal plan recommendations to demonstrate readiness for the changes that will be required following surgery. Patient's eating behaviors does not demonstrates adoption of eating plan recommendations. Physician Diet Recommendations provided in Patient Instructions Patient: [x] To return in one month for follow up [] Has completed insurance required monthly diet and exercise series [] Needs to continue monthly visits until authorization/surgery date obtained. (Luis) Other: Current Meds Patient's Medications No medications on file documented in this [facility]09-11-2023 History of Present illness Narrative* Debbie Menendez MA - 11/02/2022 3:30 PM EDT [facility] SURGICAL WEIGHT LOSS MANAGEMENT PROGRAM SUPERVISED DIET AND EXERCISE ROOMING: INITIAL VISIT Patient: Anne Marie Peterson Date of : 1995 Service Date: 11/02/2022 Patient is here today to initiate physician-supervised diet and exercise as required by their insurance company prior to approval for weight loss surgery. This patient is patient for the evaluation today This is visit 1 of 3 required visits. Weight Metrics: (From Surgical Wet Loss Management) Today's Vital Signs: Non-Surgical Initial Eval Consult Date: 11/02/22 Initial Height: 5' 5.25 (165.7 cm) Initial Weight: 390 lb (177 kg) [place] Body Weight: 142 lb (64.4 kg) Initial BMI: 64.40 Initial Body Fat %: 77.28 EBW: 248 lb Is patient taking anti-obesity Meds?: No (From NonSurgical Weight Loss Tracker) Falls Risk Assessment Patient does take medications which affect BP or mental status Patient does not have newly prescribed or changed dosage of medications within past 30 days which affect BP or mental status Patient has not fallen in the past 2 months Patient uses the following ambulatory assistive devices: NONE Patient states the presence of the following traits which increases risk of fall: NONE Patient is noton home O2 Completed by: Debbie Menendez MA * Mary Dias MD - 11/02/2022 3:30 PM EDT [facility] SURGICAL WEIGHT LOSS MANAGEMENT PROGRAM PHYSICIAN SUPERVISED DIET AND EXERCISE SURGICAL PREPARATORY REGIMEN PROGRESS NOTE INITIAL EVALUATION Patient: Anne Marie Peterson Service Date: @TODAY@ Date of : 1995 Navigation Plan: Patient History/Assessment Summary: The patient is a pleasant 27 y.o. year old female, who stands Height: 5' 5.25 (165.7 cm) tall witha weight of Weight: (!) 390 lb (177 kg) pounds, resulting in a BMI of Body mass index is 64.4 kg/m . kg/m2. She has been overweight for few years, has tried and failed multiple previous diet attempts, and is now in the process of undergoing evaluation for surgical treatment of their obesity severeand Obesity and Other preDM, low back pain . She is here today to initiate monthly physician supervised diet and exercise as part of their surgical preparatory regimen. History: Past Medical History: Diagnosis Date Anemia Back pain Daytime sleepiness SANTOS (dyspnea on exertion) Fatigue History of kidney stones History of UTI Incontinence Joint pain, knee Past Surgical History: Procedure Laterality Date HERNIA REPAIR 1999 Dr. Memo Duke / Ernst Chavez [facility] - inguinal hernia LAP,CHOLECYSTECTOMY (HISTORICAL) 2009 Dr. Memo [facility] / Ernst Chavez [facility] Family History Problem Relation Name Age of Onset Cancer Mother Hypertension Mother Obesity Mother Heart disease Father Obesity Father Stroke Maternal Grandfather Hypertension Maternal Grandfather Heart disease Maternal Grandfather Diabetes Maternal Grandfather Obesity Maternal Grandfather Anesthesia problems Maternal Grandfather Cancer Maternal Grandmother Heart disease Maternal Grandmother Social History Tobacco Use Smoking status: Never Smokeless tobacco: Never Substance Use Topics Alcohol use: Not Currently This patient's excess weight is causing the following co-morbid conditions at this time:Obesity andOther predM, low back pain. Initial Diet & Exercise/SPR Visit Weight Metrics: Date of Initial Diet & Exercise Visit: Consult Date: 11/02/22 Initial Weight: Initial Weight: 390 lb (177 kg) Initial BMI: Initial BMI: 64.40 [place] Body Weight: [place] Body Weight: 142 lb (64.4 kg) Excess Body Weight: EBW: 248 lb General: This patient is alert Physical Examination: BP (!) 142/88 Pulse 94 Ht 5' 5.25 (1.657 m) Wt (!) 390 lb (177 kg) BMI 64.40 kg/m General: This patient is obese and is in no apparent distress. Cardiac: Regular rate and rhythm without evidence of murmur Respiratory: Clear to auscultation bilaterally; No evidence of respiratory distress Head and Neck: Obese, normocephalic and atraumatic/soft and supple; no lymphadenopathy or obvious bruits; no thyromegaly. Musculoskeletal: No cyanosis, clubbing or edema/ No calf tenderness/No restrictions of movement, isambulatory without assistance; doespresent with back pain, without limitation of movement Neurological: Intact x 4 extremities, no focal deficits notes. Current Diet This patient s current diet is: sugar in tea Reviewed PAST DIET HISTORY FORM and CURRENT DIET HISTORY FORM with patient (located in [place]) Her diet contains inadequate amounts of protein, inadequate amounts of healthy fats, inadequate amounts of green, leafy vegetables, and inadequate amounts of fruits. Her comfort foods include: sweet tea Current Activity This patient currently walks at work. Current Eating Behaviors This patients demonstrates the following behaviors as they relate to her eating: eats 1 meal per day. She eats approximately 1-2 times per day. Plan: Diagnosis Plan 1. Prediabetes 2. Low back pain, unspecified back pain laterality, unspecified chronicity, unspecified whether sciatica present 3. BMI 60.0-69.9, adult (HCC) 4. Morbid obesity due to excess calories (HCC) preDM- low glycemic diet advised, plan for WLS. LBP- stable, freq sx, will monitor, work on wt loss. Morbid obesity- Pt preparing for RYGB, diet information given verbally and on paper. MDM- pt's medical conditions place them at moderate risk of complications, morbidity and mortality. Advised patient that She must adhere to regular monthly visits to meet the requirements of her insurance company. Additionally, She must demonstrate meal plan adoption to show readiness for the changes that will be required following surgery. Physician Diet Recommendations provided to patient. Patient to return for follow up in one month. Current Meds Patient's Medications No medications on file documented in this [facility]09-11-2023 History of Present illness Narrative* Anastasiia Goodwin, RD - 11/02/2022 2:00 PM EDT [facility] BARIATRIC NUTRITION ASSESSMENT / DIET & EXERCISE SURGICAL WEIGHT LOSS MANAGEMENT PROGRAM Date: 11/02/22 Patient Name: Anne Marie Peterson Date of : [birth year] Type of Assessment: [x] Surgical Patient - Pre-op Initial Assessment [] Surgical Patient - Pre-op Reassessment Weight Metrics: Today's Height: 5'5.25 Today's Weight: 390 lbs Surgeon: JACINTA Surgical Procedure: [x] Sandra-en-Y Gastric Bypass [] Sleeve Gastrectomy [] HANNAH -S [] Revisional Surgery Preop Diet: 2 wks Medical History: See Chart Current Medications: See Medication List Weight History Patient has been considering weight loss surgery for 1+ years - Mom aware and supports and dad is questioning, sister is very support, fivladimir' supports Primary reason(s) for weight loss - feel better Number of years over weight - teens PREVIOUS WEIGHT LOSS ATTEMPTS Method When Amount lost Amount regained Most successful Health eating/ low kcal/ exercise Many years -100 All+ CURRENT MEAL PLANNING Self Spouse Significant Other Child Not Planned or Varies Other Meals planned by x Food shopping done by x Meals cooked by x CURRENT EATING HABITS/ADDITIONAL INFORMATION Breakfast: Up at 5 am, no breakfast, allergy to carole Snack: Lunch: chips or hot pocket now and then Snack: Dinner: 4pm dinner, soups, or out to eat Snack: none Drinks: water, 1-2 sweet tea, no pop, no alcohol 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 Family knowledgeable about/supportive of plans for weight loss surgery: Mom aware and supports and dad is questioning, sister is very support, fiance' supports, 4 kids 9,7,4,1 (1 girl and 3 boys) B. Patient understands that they must have someone in their home 24/ for the first week following surgery, or that they must be able to stay with someone for the first week: Yes C. Co-workers knowledgeable about/supportive of plans for weight loss surgery: KNOWLEDGE AND EDUCATION ASSESSMENT AND PLAN Patient's level of knowledge regarding the changes that will have to be made in their diet following weight loss surgery is: [] Excellent - patient is well informed. [x] Good - patient has good foundation of knowledge, will require some education [] Fair - Patient has beginning understanding of changes, will require significant education [] Poor - Areas of concern include: Pt is not eating breakfast, can add in protein smoothie, can have snacks to pack for work such as egg white or yogurt, does like to make healthy meals. Current eating practices that will require change with surgery: Increased meal frequency, elimination of caffeine/ carbonation RECOMMENDATIONS AND PLAN [x] Educational Materials Provided [x]Strategies for Eating handout given to and discussed with patient [x] Patient cleared for weight loss surgery Patient able to state major diet changes that need to be made following surgery Patient states/demonstrates readiness to make necessary diet changes [] Anticipate clearing patient for weight loss surgery, but need to see patient again: [] after patient reviews educational materials [] after patient completes initial psychological evaluation [] Other: [] Follow-up: [] Unable to clear patient for weight loss surgery because: [] Will discuss with surgeon [] Will discuss with psychologist [] Will schedule for discussion at Team Meeting Diagnoses: Obesity Bariatric Nutrition Assessment completed by: Anastasiia Goodwin RD documented in this encounterSDayton VA Medical [id number] Telephone encounter Note* Telephone Encounter - Peggy Friedman MA - 10/07/2022 8:51 AM EDT [id number] Miscellaneous Notes* Telephone Encounter - Peggy Friedman MA - 10/07/2022 8:51 AM EDT Orders mailed * Addendum Note - SUZANNA Lyons - 10/06/2022 12:34 PM EDTAddended by: MILEY MOISE on: 10/06/2022 12:34 PM Modules accepted: Orders * Telephone Encounter - SUZANNA Lyons - 10/06/2022 12:32 PM EDT Added puljohn as note mentions she has sleep study scheduled this month, thanks * Addendum Note - Peggy Friedman MA - 09/30/2022 2:19 PM EDTAddended by: PEGGY FRIEDMAN on: 09/30/2022 02:19 PM Modules accepted: Orders * Telephone Encounter - Peggy Friedman MA - 09/30/2022 2:13 PM EDT Orders pended, pre op checklist scanned, EGD order sent to ALS * Telephone Encounter - Peggy Friedman MA - 09/30/2022 2:12 PM EDT Plan: I have recommended proceeding with the evaluation, workup and hr shared services consultant preoperative consultationsand testing for the primary procedure as outlined below: BARIATRIC AND METABOLIC SURGERY [facility] PATIENT SUMMARY Anne Marie Campbell 26 y.o. female with Body mass index is 63.28 kg/m . Planned Procedures: Laparoscopic Sandra-en-Y Gastric Bypass DM[] HTN[] MOE[] GERD[] HL[] OA[] TOB[] Date of Surgery: Peg Lane INITIAL PRE-OP TESTING ORDERS/ RESULTS Labwork [x] CMP, TSH, Fasting Lipid Profile, Mg, Zinc, Vit B1 (whole blood), Vit B12, 25-OH Vit D, Fe, Ferritin, Folate, Hgb A1c EGD [x] Dx: [] GERD [x] Dyspepsia [] Other [] Not ordered Pathology [x] H. pylori [] Negative [] Positive [] Stool Antigen UGI [] US Abdomen [] [x] S/p gerardo [] Not ordered MOE eval [] [] On CPAP / Obtain settings Toxicology [] [] Urine drug screen/ETOH [] Nicotine Additional [] INITIAL CONSULTATIONS ORDERED CLEARANCE / MANAGEMENT Psychology [x] Dietitian [x] Cardiology [x] Pulmonary [] Others [] []Heme/Onc []Pain mgmt [x]Other: Please get results of sleep study - scheduled in September 2022 PSD [x] Physician supervised diet: []None [x]3 mos []6 mos Preop diet [x] Preop low calorie diet: []1 wk [x]2 wks [] Other: FINAL PRE-OP TESTING ORDERS RESULTS Labwork [x] [x] CBC [x]BMP []Serum Nicotine / Cotinine EKG [x] CXR [] POST-OP MEDICATIONS Ulcer Ppx [] Omeprazole 20 mg PO []QD Gallstone Ppx [] Ursodiol 300 mg []BID DVT Ppx [] DVT prophylaxis per final preop visit estimated risk Estimated calculated risk: % Schedule final pre-operative office visit with surgeon, pre-operative education class, and pre-operative exercise class prior to date of surgery I met with her today to discuss risks and benefits of laparoscopic weight loss surgery, the risks and benefits are outlined as above and visual aids were used to describe the procedure. I personally performed the evaluation and management of Anne Marie Peterson in the development of a treatment plan for this patient. I personally interviewed the patient and performed an individual physical examination. In addition, I discussed the patient's condition and treatment options with them. Ihave also reviewed and agree with the past medical, family and social history unless otherwise noted. All of the patient's questions were answered. I discussed/counseled the patient regarding the risks and benefits of surgery as well as the preoperative and postoperative care plan for this patient. The patient was seen and examined independentlyand relevant data reviewed by myself. A full chart review was performed. Due to the complexity of the patients condition as well as having at least one medical condition as listed above in medical history that is progressing despite medical management, this patient is considered high medical decision making and surgical intervention is necessary to help decrease the risk of continued chronic illness. The patient was seen and examined independently and relevant data reviewed by myself. A full chart review was performed. Patient Care Team: Xenia Lane as PCP - General (Family Medicine) Silviano Daley (Obstetrics and Gynecology) * Telephone Encounter - Barbara Mayberry - 09/10/2022 1:22 PM EDT Initial New [facility] surgical patient Navigation & Financial Counseling Discussion Patient Communication: In office SURGEON: [x] JACINTA [] AD [] MP [] TB [] LM PROCEDURE: [] LRYGB [] LSG [] HANNAH-S [] HANNAH [] UNDECIDED [] REV: SPECIFY: Confirmed pt wants to continue with surgical program/plan [] YES [] NO (complete program withdrawalnote/process) CO-MORBIDS: [] NONE [] DM []HTN [] MOE []GERD [] OTH: PRIVATE PAY: [] NO []YES DATE OF INITIAL BENEFITS VERIFICATION: TRANSFER FU: [] YES [] NO PRIMARY INSURANCE: Payor: [facility] MEDICAID / Plan: [facility] MEDICAID ODM / Product Type: Medicaid HMO / BENEFIT ON PLAN: [] NO [] YES BENEFIT MAX: [] NO [] YES -- BENEFIT MAX: $ EMPLOYER: DIET AND EXERCISE (DE) REQUIREMENT PRIMARY [] NONE [x]3M [] 6M []9M [] Medicare 4 Months [] SPR (3M) []OTHER: SECONDARY INSURANCE: BENEFIT ON PLAN: [] NO [] YES BENEFIT MAX: [] NO [] YES -- BENEFIT MAX: $ AUTH REQUIRED FROM SECONDARY [] NO [] YES DIET AND EXERCISE REQUIREMENT SECONDARY [] NONE []3M [] 6M [] Medicare 4 months [] SPR (3M) []OTHER: ___ [x] Discussed with patient: Financial cost overview (document signed and pt given copy at new pt consult visit with surgeon), Initial appointments: Bariatric Nutrition Assessment (BNA) & Diet and Exercise (DE) Patient to look for yellow envelope in mail. This yellow envelope will contain orders for labs, testing and required clearances. Pt encouraged to complete early in program to prevent delays. Encourage blood work to be draw by 1st DE appointment. [x] Reviewed OOP cost, including: [] Optifast cost of approximately $130-140/week x weeks immediately prior to surgery - used to induce rapid weight loss which results in decrease in size of liver and therefore facilitates laparoscopically surgery approach. [x] Overview of inpatient admission benefits - estimated inpatient co-pays, deductibles and/or co-insurance - Estimated OOP costs form reviewed with patient, and copy given to patient at new pt visit. [x] Reviewed next steps with patient: 1) Scheduled at new pt surgeon visit: Secondary Art Teacher (RD) for a Nutrition Assessment (BNA) and Pre-operative Diet and Exercise (DE)appointment #1. [x] Patient reminded to arrive 15 minutes early for check in. Late arrivals may need to be rescheduled. 2) Schedule: Diet and Exercise Apt #2 only scheduled after initial BNA and DE completed, 3) Behavioral Health apt scheduled after DE started. Reviewed rational and goal of Behavioral Health appointments. 4) [x] Reinforced need to cancel any WMI appointments 48 hours in advance. Cautioned NS/Same day cancellations may result in delay in program or program completion hold. Noted: DE series needs to be a monthly series or insurance company may require repeat of the entire series. 5) [x] Smoker/tobacco products including vaping: reviewed need for cessation before surgery clearance and life long abstinence after surgery for best outcomes. Patient navigation to surgery: [x] Explained to patient that average time from initial consult to date of surgery can be 6-8 months. - Process can take longer if there are cancelled appointments, delays in testing and/or additional clearances that needs to be completed. - Reviewed importance of patient active engagement in making and keeping appointments to keep the process moving. - Reinforced need to cancel appointments at least 48 hours in advance. Reviewed that instances of No Shows and Same Day Appointment Cancellations may result in program/surgery delay or hold. [x] Patient advised of importance of having voicemail and MyChart for office communications and lab/testing results before and after surgery. documented in this encounterSDayton VA Medical [id number] Note* Addendum Note - SUZANNA Lyons - 10/06/2022 12:34 PM EDTAddended by: MILEY MOISE on: 10/06/2022 12:34 PM Modules accepted: Orders [place] [id number] Note* Addendum Note - SUZANNA Lyons - 10/06/2022 12:34 PM EDTAddended by: MILEY MOISE on: 10/06/2022 12:34 PM Modules accepted: Orders [place] [id number] Note* Addendum Note - SUZANNA Lyons - 10/06/2022 12:34 PM EDTAddended by: MILEY MOISE on: 10/06/2022 12:34 PM Modules accepted: Orders [place] [id number] Miscellaneous Notes* Addendum Note - SUZANNA Lyons - 10/06/2022 12:34 PM EDTAddended by: MILEY MOISE on: 10/06/2022 12:34 PM Modules accepted: Orders * Telephone Encounter - SUZANNA Lyons - 10/06/2022 12:32 PM EDT Added pulm as note mentions she has sleep study scheduled this month, thanks * Addendum Note - Peggy Friedman MA - 09/30/2022 2:19 PM EDTAddended by: PEGGY FRIEDMAN on: 09/30/2022 02:19 PM Modules accepted: Orders * Telephone Encounter - Peggy Friedman MA - 09/30/2022 2:13 PM EDT Orders pended, pre op checklist scanned, EGD order sent to ALS * Telephone Encounter - Peggy Friedman MA - 09/30/2022 2:12 PM EDT Plan: I have recommended proceeding with the evaluation, workup and hr shared services consultant preoperative consultationsand testing for the primary procedure as outlined below: BARIATRIC AND METABOLIC SURGERY [facility] PATIENT SUMMARY Anne Marie Campbell 26 y.o. female with Body mass index is 63.28 kg/m . Planned Procedures: Laparoscopic Sandra-en-Y Gastric Bypass DM[] HTN[] MOE[] GERD[] HL[] OA[] TOB[] Date of Surgery: [address] INITIAL PRE-OP TESTING ORDERS/ RESULTS Labwork [x] CMP, TSH, Fasting Lipid Profile, Mg, Zinc, Vit B1 (whole blood), Vit B12, 25-OH Vit D, Fe, Ferritin, Folate, Hgb A1c EGD [x] Dx: [] GERD [x] Dyspepsia [] Other [] Not ordered Pathology [x] H. pylori [] Negative [] Positive [] Stool Antigen UGI [] US Abdomen [] [x] S/p gerardo [] Not ordered MOE eval [] [] On CPAP / Obtain settings Toxicology [] [] Urine drug screen/ETOH [] Nicotine Additional [] INITIAL CONSULTATIONS ORDERED CLEARANCE / MANAGEMENT Psychology [x] Dietitian [x] Cardiology [x] Pulmonary [] Others [] []Heme/Onc []Pain mgmt [x]Other: Please get results of sleep study - scheduled in September 2022 PSD [x] Physician supervised diet: []None [x]3 mos []6 mos Preop diet [x] Preop low calorie diet: []1 wk [x]2 wks [] Other: FINAL PRE-OP TESTING ORDERS RESULTS Labwork [x] [x] CBC [x]BMP []Serum Nicotine / Cotinine EKG [x] CXR [] POST-OP MEDICATIONS Ulcer Ppx [] Omeprazole 20 mg PO []QD Gallstone Ppx [] Ursodiol 300 mg []BID DVT Ppx [] DVT prophylaxis per final preop visit estimated risk Estimated calculated risk: % Schedule final pre-operative office visit with surgeon, pre-operative education class, and pre-operative exercise class prior to date of surgery I met with her today to discuss risks and benefits of laparoscopic weight loss surgery, the risks and benefits are outlined as above and visual aids were used to describe the procedure. I personally performed the evaluation and management of Anne Marie Peterson in the development of a treatment plan for this patient. I personally interviewed the patient and performed an individual physical examination. In addition, I discussed the patient's condition and treatment options with them. Ihave also reviewed and agree with the past medical, family and social history unless otherwise noted. All of the patient's questions were answered. I discussed/counseled the patient regarding the risks and benefits of surgery as well as the preoperative and postoperative care plan for this patient. The patient was seen and examined independentlyand relevant data reviewed by myself. A full chart review was performed. Due to the complexity of the patients condition as well as having at least one medical condition as listed above in medical history that is progressing despite medical management, this patient is considered high medical decision making and surgical intervention is necessary to help decrease the risk of continued chronic illness. The patient was seen and examined independently and relevant data reviewed by myself. A full chart review was performed. Patient Care Team: Xenia Lane as PCP - General (Family Medicine) Silviano Daley (Obstetrics and Gynecology) * Telephone Encounter - Barbara John Mayberry - 09/10/2022 1:22 PM EDT Initial New [facility] surgical patient Navigation & Financial Counseling Discussion Patient Communication: In office SURGEON: [x] JZ [] AD [] MP [] TB [] LM PROCEDURE: [] LRYGB [] LSG [] HANNAH-S [] HANNAH [] UNDECIDED [] REV: SPECIFY: Confirmed pt wants to continue with surgical program/plan [] YES [] NO (complete program withdrawalnote/process) CO-MORBIDS: [] NONE [] DM []HTN [] MOE []GERD [] OTH: PRIVATE PAY: [] NO []YES DATE OF INITIAL BENEFITS VERIFICATION: TRANSFER FU: [] YES [] NO PRIMARY INSURANCE: Payor: [facility] MEDICAID / Plan: [facility] MEDICAID ODM / Product Type: Medicaid HMO / BENEFIT ON PLAN: [] NO [] YES BENEFIT MAX: [] NO [] YES -- BENEFIT MAX: $ EMPLOYER: DIET AND EXERCISE (DE) REQUIREMENT PRIMARY [] NONE [x]3M [] 6M []9M [] Medicare 4 Months [] SPR (3M) []OTHER: SECONDARY INSURANCE: BENEFIT ON PLAN: [] NO [] YES BENEFIT MAX: [] NO [] YES -- BENEFIT MAX: $ AUTH REQUIRED FROM SECONDARY [] NO [] YES DIET AND EXERCISE REQUIREMENT SECONDARY [] NONE []3M [] 6M [] Medicare 4 months [] SPR (3M) []OTHER: ___ [x] Discussed with patient: Financial cost overview (document signed and pt given copy at new pt consult visit with surgeon), Initial appointments: Bariatric Nutrition Assessment (BNA) & Diet and Exercise (DE) Patient to look for yellow envelope in mail. This yellow envelope will contain orders for labs, testing and required clearances. Pt encouraged to complete early in program to prevent delays. Encourage blood work to be draw by 1st DE appointment. [x] Reviewed OOP cost, including: [] Optifast cost of approximately $130-140/week x weeks immediately prior to surgery - used to induce rapid weight loss which results in decrease in size of liver and therefore facilitates laparoscopically surgery approach. [x] Overview of inpatient admission benefits - estimated inpatient co-pays, deductibles and/or co-insurance - Estimated OOP costs form reviewed with patient, and copy given to patient at new pt visit. [x] Reviewed next steps with patient: 1) Scheduled at new pt surgeon visit: Secondary Art Teacher (RD) for a Nutrition Assessment (BNA) and Pre-operative Diet and Exercise (DE)appointment #1. [x] Patient reminded to arrive 15 minutes early for check in. Late arrivals may need to be rescheduled. 2) Schedule: Diet and Exercise Apt #2 only scheduled after initial BNA and DE completed, 3) Behavioral Health apt scheduled after DE started. Reviewed rational and goal of Behavioral Health appointments. 4) [x] Reinforced need to cancel any WMI appointments 48 hours in advance. Cautioned NS/Same day cancellations may result in delay in program or program completion hold. Noted: DE series needs to be a monthly series or insurance company may require repeat of the entire series. 5) [x] Smoker/tobacco products including vaping: reviewed need for cessation before surgery clearance and life long abstinence after surgery for best outcomes. Patient navigation to surgery: [x] Explained to patient that average time from initial consult to date of surgery can be 6-8 months. - Process can take longer if there are cancelled appointments, delays in testing and/or additional clearances that needs to be completed. - Reviewed importance of patient active engagement in making and keeping appointments to keep the process moving. - Reinforced need to cancel appointments at least 48 hours in advance. Reviewed that instances of No Shows and Same Day Appointment Cancellations may result in program/surgery delay or hold. [x] Patient advised of importance of having voicemail and MyChart for office communications and lab/testing results before and after surgery. documented in this encounterSDayton VA Medical [id number] Telephone encounter Note* Telephone Encounter - SUZANNA Lyons - 10/06/2022 12:32 PM EDT Added pulm as note mentions she has sleep study scheduled this month, thanks [facility] [id number] Note* Addendum Note - Peggy Friedman MA - 09/30/2022 2:19 PM EDTAddended by: PEGGY FRIEDMAN on: 09/30/2022 02:19 PM Modules accepted: Orders [place] [id number] Note* Addendum Note - Peggy Friedman MA - 09/30/2022 2:19 PM EDTAddended by: PEGGY FRIEDMAN on: 09/30/2022 02:19 PM Modules accepted: Orders [facility] [id number] Note* Addendum Note - Peggy Friedman MA - 09/30/2022 2:19 PM EDTAddended by: PEGGY FRIEDMAN on: 09/30/2022 02:19 PM Modules accepted: Orders [facility] [id number] Note* Addendum Note - Peggy Friedman MA - 09/30/2022 2:19 PM EDTAddended by: PEGGY FRIEDMAN on: 09/30/2022 02:19 PM Modules accepted: Orders [facility] [id number] Miscellaneous Notes* Addendum Note - Peggy Friedman MA - 09/30/2022 2:19 PM EDTAddended by: PEGGY FRIEDMAN on: 09/30/2022 02:19 PM Modules accepted: Orders * Telephone Encounter - Peggy Friedman MA - 09/30/2022 2:13 PM EDT Orders pended, pre op checklist scanned, EGD order sent to ALS * Telephone Encounter - Peggy Friedman MA - 09/30/2022 2:12 PM EDT Plan: I have recommended proceeding with the evaluation, workup and hr shared services consultant preoperative consultationsand testing for the primary procedure as outlined below: BARIATRIC AND METABOLIC SURGERY [facility] PATIENT SUMMARY Anne Marie Campbell 26 y.o. female with Body mass index is 63.28 kg/m . Planned Procedures: Laparoscopic Sandra-en-Y Gastric Bypass DM[] HTN[] MOE[] GERD[] HL[] OA[] TOB[] Date of Surgery: [address] INITIAL PRE-OP TESTING ORDERS/ RESULTS Labwork [x] CMP, TSH, Fasting Lipid Profile, Mg, Zinc, Vit B1 (whole blood), Vit B12, 25-OH Vit D, Fe, Ferritin, Folate, Hgb A1c EGD [x] Dx: [] GERD [x] Dyspepsia [] Other [] Not ordered Pathology [x] H. pylori [] Negative [] Positive [] Stool Antigen UGI [] US Abdomen [] [x] S/p gerardo [] Not ordered MEO eval [] [] On CPAP / Obtain settings Toxicology [] [] Urine drug screen/ETOH [] Nicotine Additional [] INITIAL CONSULTATIONS ORDERED CLEARANCE / MANAGEMENT Psychology [x] Dietitian [x] Cardiology [x] Pulmonary [] Others [] []Heme/Onc []Pain mgmt [x]Other: Please get results of sleep study - scheduled in September 2022 PSD [x] Physician supervised diet: []None [x]3 mos []6 mos Preop diet [x] Preop low calorie diet: []1 wk [x]2 wks [] Other: FINAL PRE-OP TESTING ORDERS RESULTS Labwork [x] [x] CBC [x]BMP []Serum Nicotine / Cotinine EKG [x] CXR [] POST-OP MEDICATIONS Ulcer Ppx [] Omeprazole 20 mg PO []QD Gallstone Ppx [] Ursodiol 300 mg []BID DVT Ppx [] DVT prophylaxis per final preop visit estimated risk Estimated calculated risk: % Schedule final pre-operative office visit with surgeon, pre-operative education class, and pre-operative exercise class prior to date of surgery I met with her today to discuss risks and benefits of laparoscopic weight loss surgery, the risks and benefits are outlined as above and visual aids were used to describe the procedure. I personally performed the evaluation and management of Anne Marie Peterson in the development of a treatment plan for this patient. I personally interviewed the patient and performed an individual physical examination. In addition, I discussed the patient's condition and treatment options with them. Ihave also reviewed and agree with the past medical, family and social history unless otherwise noted. All of the patient's questions were answered. I discussed/counseled the patient regarding the risks and benefits of surgery as well as the preoperative and postoperative care plan for this patient. The patient was seen and examined independentlyand relevant data reviewed by myself. A full chart review was performed. Due to the complexity of the patients condition as well as having at least one medical condition as listed above in medical history that is progressing despite medical management, this patient is considered high medical decision making and surgical intervention is necessary to help decrease the risk of continued chronic illness. The patient was seen and examined independently and relevant data reviewed by myself. A full chart review was performed. Patient Care Team: Xenia Lane as PCP - General (Family Medicine) Silviano Daley (Obstetrics and Gynecology) * Telephone Encounter - Barbara Mayberry - 09/10/2022 1:22 PM EDT Initial New [facility] surgical patient Navigation & Financial Counseling Discussion Patient Communication: In office SURGEON: [x] JACINTA [] AD [] MP [] TB [] LM PROCEDURE: [] LRYGB [] LSG [] HANNAH-S [] HANNAH [] UNDECIDED [] REV: SPECIFY: Confirmed pt wants to continue with surgical program/plan [] YES [] NO (complete program withdrawalnote/process) CO-MORBIDS: [] NONE [] DM []HTN [] MOE []GERD [] OTH: PRIVATE PAY: [] NO []YES DATE OF INITIAL BENEFITS VERIFICATION: TRANSFER FU: [] YES [] NO PRIMARY INSURANCE: Payor: [facility] MEDICAID / Plan: [facility] MEDICAID ODM / Product Type: Medicaid HMO / BENEFIT ON PLAN: [] NO [] YES BENEFIT MAX: [] NO [] YES -- BENEFIT MAX: $ EMPLOYER: DIET AND EXERCISE (DE) REQUIREMENT PRIMARY [] NONE [x]3M [] 6M []9M [] Medicare 4 Months [] SPR (3M) []OTHER: SECONDARY INSURANCE: BENEFIT ON PLAN: [] NO [] YES BENEFIT MAX: [] NO [] YES -- BENEFIT MAX: $ AUTH REQUIRED FROM SECONDARY [] NO [] YES DIET AND EXERCISE REQUIREMENT SECONDARY [] NONE []3M [] 6M [] Medicare 4 months [] SPR (3M) []OTHER: ___ [x] Discussed with patient: Financial cost overview (document signed and pt given copy at new pt consult visit with surgeon), Initial appointments: Bariatric Nutrition Assessment (BNA) & Diet and Exercise (DE) Patient to look for yellow envelope in mail. This yellow envelope will contain orders for labs, testing and required clearances. Pt encouraged to complete early in program to prevent delays. Encourage blood work to be draw by 1st DE appointment. [x] Reviewed OOP cost, including: [] Optifast cost of approximately $130-140/week x weeks immediately prior to surgery - used to induce rapid weight loss which results in decrease in size of liver and therefore facilitates laparoscopically surgery approach. [x] Overview of inpatient admission benefits - estimated inpatient co-pays, deductibles and/or co-insurance - Estimated OOP costs form reviewed with patient, and copy given to patient at new pt visit. [x] Reviewed next steps with patient: 1) Scheduled at new pt surgeon visit: Secondary Art Teacher (RD) for a Nutrition Assessment (BNA) and Pre-operative Diet and Exercise (DE)appointment #1. [x] Patient reminded to arrive 15 minutes early for check in. Late arrivals may need to be rescheduled. 2) Schedule: Diet and Exercise Apt #2 only scheduled after initial BNA and DE completed, 3) Behavioral Health apt scheduled after DE started. Reviewed rational and goal of Behavioral Health appointments. 4) [x] Reinforced need to cancel any WMI appointments 48 hours in advance. Cautioned NS/Same day cancellations may result in delay in program or program completion hold. Noted: DE series needs to be a monthly series or insurance company may require repeat of the entire series. 5) [x] Smoker/tobacco products including vaping: reviewed need for cessation before surgery clearance and life long abstinence after surgery for best outcomes. Patient navigation to surgery: [x] Explained to patient that average time from initial consult to date of surgery can be 6-8 months. - Process can take longer if there are cancelled appointments, delays in testing and/or additional clearances that needs to be completed. - Reviewed importance of patient active engagement in making and keeping appointments to keep the process moving. - Reinforced need to cancel appointments at least 48 hours in advance. Reviewed that instances of No Shows and Same Day Appointment Cancellations may result in program/surgery delay or hold. [x] Patient advised of importance of having voicemail and MyChart for office communications and lab/testing results before and after surgery. documented in this encounterSDay[facility] [id number] Telephone encounter Note* Telephone Encounter - Peggy Friedman MA - 09/30/2022 2:13 PM EDT Orders pended, pre op checklist scanned, [id number] Telephone encounter Note* Telephone Encounter - Peggy Friedman MA - 09/30/2022 2:12 PM EDT Plan: I have recommended proceeding with the evaluation, workup and hr shared services consultant preoperative consultationsand testing for the primary procedure as outlined below: BARIATRIC AND METABOLIC SURGERY [facility] PATIENT SUMMARY Anne Marie Campbell 26 y.o. female with Body mass index is 63.28 kg/m . Planned Procedures: Laparoscopic Sandra-en-Y Gastric Bypass DM[] HTN[] MOE[] GERD[] HL[] OA[] TOB[] Date of Surgery: [address] INITIAL PRE-OP TESTING ORDERS/ RESULTS Labwork [x] CMP, TSH, Fasting Lipid Profile, Mg, Zinc, Vit B1 (whole blood), Vit B12, 25-OH Vit D, Fe, Ferritin, Folate, Hgb A1c EGD [x] Dx: [] GERD [x] Dyspepsia [] Other [] Not ordered Pathology [x] H. pylori [] Negative [] Positive [] Stool Antigen UGI [] US Abdomen [] [x] S/p gerardo [] Not ordered MOE eval [] [] On CPAP / Obtain settings Toxicology [] [] Urine drug screen/ETOH [] Nicotine Additional [] INITIAL CONSULTATIONS ORDERED CLEARANCE / MANAGEMENT Psychology [x] Dietitian [x] Cardiology [x] Pulmonary [] Others [] []Heme/Onc []Pain mgmt [x]Other: Please get results of sleep study - scheduled in September 2022 PSD [x] Physician supervised diet: []None [x]3 mos []6 mos Preop diet [x] Preop low calorie diet: []1 wk [x]2 wks [] Other: FINAL PRE-OP TESTING ORDERS RESULTS Labwork [x] [x] CBC [x]BMP []Serum Nicotine / Cotinine EKG [x] CXR [] POST-OP MEDICATIONS Ulcer Ppx [] Omeprazole 20 mg PO []QD Gallstone Ppx [] Ursodiol 300 mg []BID DVT Ppx [] DVT prophylaxis per final preop visit estimated risk Estimated calculated risk: % Schedule final pre-operative office visit with surgeon, pre-operative education class, and pre-operative exercise class prior to date of surgery I met with her today to discuss risks and benefits of laparoscopic weight loss surgery, the risks and benefits are outlined as above and visual aids were used to describe the procedure. I personally performed the evaluation and management of Anne Marie Peterson in the development of a treatment plan for this patient. I personally interviewed the patient and performed an individual physical examination. In addition, I discussed the patient's condition and treatment options with them. Ihave also reviewed and agree with the past medical, family and social history unless otherwise noted. All of the patient's questions were answered. I discussed/counseled the patient regarding the risks and benefits of surgery as well as the preoperative and postoperative care plan for this patient. The patient was seen and examined independentlyand relevant data reviewed by myself. A full chart review was performed. Due to the complexity of the patients condition as well as having at least one medical condition as listed above in medical history that is progressing despite medical management, this patient is considered high medical decision making and surgical intervention is necessary to help decrease the risk of continued chronic illness. The patient was seen and examined independently and relevant data reviewed by myself. A full chart review was performed. Patient Care Team: Xenia Lane as PCP - General (Family Medicine) Silviano Daley (Obstetrics and Gynecology) [facility] [id number] Telephone encounter Note* Telephone Encounter - Barbara Ojeda Jefe - 09/10/2022 1:22 PM EDT Initial New [facility] surgical patient Navigation & Financial Counseling Discussion Patient Communication: In office SURGEON: [x] JACINTA [] AD [] MP [] TB [] LM PROCEDURE: [] LRYGB [] LSG [] HANNAH-S [] HANNAH [] UNDECIDED [] REV: SPECIFY: Confirmed pt wants to continue with surgical program/plan [] YES [] NO (complete program withdrawalnote/process) CO-MORBIDS: [] NONE [] DM []HTN [] MOE []GERD [] OTH: PRIVATE PAY: [] NO []YES DATE OF INITIAL BENEFITS VERIFICATION: TRANSFER FU: [] YES [] NO PRIMARY INSURANCE: Payor: [facility] MEDICAID / Plan: [facility] MEDICAID ODM / Product Type: Medicaid HMO / BENEFIT ON PLAN: [] NO [] YES BENEFIT MAX: [] NO [] YES -- BENEFIT MAX: $ EMPLOYER: DIET AND EXERCISE (DE) REQUIREMENT PRIMARY [] NONE [x]3M [] 6M []9M [] Medicare 4 Months [] SPR (3M) []OTHER: SECONDARY INSURANCE: BENEFIT ON PLAN: [] NO [] YES BENEFIT MAX: [] NO [] YES -- BENEFIT MAX: $ AUTH REQUIRED FROM SECONDARY [] NO [] YES DIET AND EXERCISE REQUIREMENT SECONDARY [] NONE []3M [] 6M [] Medicare 4 months [] SPR (3M) []OTHER: ___ [x] Discussed with patient: Financial cost overview (document signed and pt given copy at new pt consult visit with surgeon), Initial appointments: Bariatric Nutrition Assessment (BNA) & Diet and Exercise (DE) Patient to look for yellow envelope in mail. This yellow envelope will contain orders for labs, testing and required clearances. Pt encouraged to complete early in program to prevent delays. Encourage blood work to be draw by 1st DE appointment. [x] Reviewed OOP cost, including: [] Optifast cost of approximately $130-140/week x weeks immediately prior to surgery - used to induce rapid weight loss which results in decrease in size of liver and therefore facilitates laparoscopically surgery approach. [x] Overview of inpatient admission benefits - estimated inpatient co-pays, deductibles and/or co-insurance - Estimated OOP costs form reviewed with patient, and copy given to patient at new pt visit. [x] Reviewed next steps with patient: 1) Scheduled at new pt surgeon visit: Secondary Art Teacher (RD) for a Nutrition Assessment (BNA) and Pre-operative Diet and Exercise (DE)appointment #1. [x] Patient reminded to arrive 15 minutes early for check in. Late arrivals may need to be rescheduled. 2) Schedule: Diet and Exercise Apt #2 only scheduled after initial BNA and DE completed, 3) Behavioral Health apt scheduled after DE started. Reviewed rational and goal of Behavioral Health appointments. 4) [x] Reinforced need to cancel any WMI appointments 48 hours in advance. Cautioned NS/Same day cancellations may result in delay in program or program completion hold. Noted: DE series needs to be a monthly series or insurance company may require repeat of the entire series. 5) [x] Smoker/tobacco products including vaping: reviewed need for cessation before surgery clearance and life long abstinence after surgery for best outcomes. Patient navigation to surgery: [x] Explained to patient that average time from initial consult to date of surgery can be 6-8 months. - Process can take longer if there are cancelled appointments, delays in testing and/or additional clearances that needs to be completed. - Reviewed importance of patient active engagement in making and keeping appointments to keep the process moving. - Reinforced need to cancel appointments at least 48 hours in advance. Reviewed that instances of No Shows and Same Day Appointment Cancellations may result in program/surgery delay or hold. [x] Patient advised of importance of having voicemail and MyChart for office communications and lab/testing results before and after surgery. [facility] [id number] History of Present illness Narrative* Memo Campbell MD - 09/10/2022 1:00 PM EDT Images from the original note were not included. [facility] SURGICAL PROGRAM INITIAL EVALUATION Patient: Anne Marie Peterson Date of : 1995 Service Date: 09/10/22 Patient History: The patient is a pleasant 26 y.o. year old female with morbid obesity, who stands Height: 5' 5.25 (165.7 cm) tall with a weight of Weight: (!) 383 lb 3.2 oz (174 kg) , resulting in a BMI of Body mass index is 63.28 kg/m .. She is interested in discussing weight loss surgery. The patient suffers from multiple co-morbidities as a result of morbid obesity, including: PMHx: Past Medical History: Diagnosis Date Anemia Back pain Daytime sleepiness SANTOS (dyspnea on exertion) Fatigue History of kidney stones History of UTI Incontinence Joint pain, knee Co-Morbidity Assessment Co-Morbidity Initial Evaluation Today s Visit Type 2 DM N HTN N MOE N GERD N Elevated CHO/Lipids N Depression N The patient denies a history of myocardia infarction, deep vein thrombosis, pulmonary embolism, renal failure, hepatic failure, stroke, and seizure. PSHx: Past Surgical History: Procedure Laterality Date HERNIA REPAIR 1999 [facility]. Memo [facility] - inguinal hernia LAP,CHOLECYSTECTOMY (HISTORICAL) 2009 Dr. Memo [facility] Social History: This patient is unaccompanied for the evaluation today, She does not smoke, and does not drink alcohol. ROS: General: negative for - chills, fatigue, fever or malaise Ophthalmic: negative for - blurry vision, double vision or dry eyes ENT: negative for - headaches, hearing change, nasal congestion, sinus pain or sore throat Endocrine: negative for - hot flashes, polydipsia/polyuria or skin changes Respiratory: negative for - cough, shortness of breath or wheezing Cardiovascular: negative for - chest pain, dyspnea on exertion, irregular heartbeat, murmur, rapid heart rate or shortness of breath Gastrointestinal: negative for - change in bowel habits, hemoptysis, hematemesis, hematochezia, dysphagia, nausea, vomiting, diarrhea, constipation, weight loss Genito-Urinary: negative for - dysuria, hematuria, incontinence or nocturia Musculoskeletal: negative for - joint pain, joint stiffness, joint swelling, muscle pain or muscular weakness Neurological: negative for - confusion, dizziness, headaches or numbness/tingling Physical Examination: BP 129/71 Pulse 90 Temp 36.4 C (97.5 F) Resp 20 Ht 5' 5.25 (1.657 m) Wt (!) 383 lb 3.2 oz (174 kg) BMI 63.28 kg/m General: This patient is awake, alert, and oriented, and is in no apparent distress. Respiratory: Non-labored breathing Abdomen: Obese, soft, non-tender, non-distended, without masses. Incisions consistent with previoussurgeries. Scars from lap gerardo. Head and Neck: Obese, normocephalic and atraumatic. Soft and supple. Extremities: No cyanosis, clubbing or edema/ No calf tenderness/No restrictions of movement, is ambulatory without assistance. Neurological: Intact x 4 extremities, no focal deficits notes. Skin: No rashes or lesions noted. Rectal: Not Done Hernia: no hernias found on exam Assessment: The patient has failed multiple attempts at non-surgical weight loss, and is now seeking surgical intervention to promote permanent and consistent weight loss. She has chosen Laparoscopic Sandra-en-Y Gastric Bypass. She is well educated regarding it, as she has recently viewed our weight loss surgeryinformational seminar . In anticipation of weight reductive surgery now or in the future, we spent a great deal of time discussing the risks and benefits of, including but not limited to injury to intra-abdominal organs, breakdown of the gastric staple line, the need for re-operative therapy, prolonged hospitalization, mechanical ventilation, and . We discussed the possibility of bleeding, the need for blood transfusions, blood clots, hospital-acquired and intra-abdominal infection, anastomotic stricture, and worsening GERD. And we discussed the need for post-operative visit compliance, behavior modifications and diet changes, protein and vitamin supplementation, as well as routine scheduled and dedicated exercise. We discussed the potential weight loss benefit of approximately 60-70% of her excess body weight at 12-18 months post-op (LRYGB) and 50% of her excess body weight loss at 12-18 months after a LSG, as well as the possibility of insufficient weight loss or weight gain after 2 years post-operative time. Upon completion of all required pre-operative testing we will submit for insurance pre-authorization. All female patients of childbearing age were advised to refrain from becoming for 12-18 months after weight loss surgery. I advised them to discuss with their physician/gear cutter regarding contraception to prevent during this period of time after surgery. In addition, all patients were counseled on compliance with prescribed vitamin supplementation, office visit follow-up and compliance with program standards. Plan: I have recommended proceeding with the evaluation, workup and hr shared services consultant preoperative consultationsand testing for the primary procedure as outlined below: BARIATRIC AND METABOLIC SURGERY [facility] PATIENT SUMMARY Anne Marie Campbell 26 y.o. female with Body mass index is 63.28 kg/m . Planned Procedures: Laparoscopic Sandra-en-Y Gastric Bypass DM[] HTN[] MOE[] GERD[] HL[] OA[] TOB[] Date of Surgery: [facility] INITIAL PRE-OP TESTING ORDERS/ RESULTS Labwork [x] CMP, TSH, Fasting Lipid Profile, Mg, Zinc, Vit B1 (whole blood), Vit B12, 25-OH Vit D, Fe, Ferritin, Folate, Hgb A1c EGD [x] Dx: [] GERD [x] Dyspepsia [] Other [] Not ordered Pathology [x] H. pylori [] Negative [] Positive [] Stool Antigen UGI [] US Abdomen [] [x] S/p gerardo [] Not ordered MOE eval [] [] On CPAP / Obtain settings Toxicology [] [] Urine drug screen/ETOH [] Nicotine Additional [] INITIAL CONSULTATIONS ORDERED CLEARANCE / MANAGEMENT Psychology [x] Dietitian [x] Cardiology [x] Pulmonary [] Others [] []Heme/Onc []Pain mgmt [x]Other: Please get results of sleep study - scheduled in September 2022 PSD [x] Physician supervised diet: []None [x]3 mos []6 mos Preop diet [x] Preop low calorie diet: []1 wk [x]2 wks [] Other: FINAL PRE-OP TESTING ORDERS RESULTS Labwork [x] [x] CBC [x]BMP []Serum Nicotine / Cotinine EKG [x] CXR [] POST-OP MEDICATIONS Ulcer Ppx [] Omeprazole 20 mg PO []QD Gallstone Ppx [] Ursodiol 300 mg []BID DVT Ppx [] DVT prophylaxis per final preop visit estimated risk Estimated calculated risk: % Schedule final pre-operative office visit with surgeon, pre-operative education class, and pre-operative exercise class prior to date of surgery I met with her today to discuss risks and benefits of laparoscopic weight loss surgery, the risks and benefits are outlined as above and visual aids were used to describe the procedure. I personally performed the evaluation and management of Anne Marie Peterson in the development of a treatment plan for this patient. I personally interviewed the patient and performed an individual physical examination. In addition, I discussed the patient's condition and treatment options with them. Ihave also reviewed and agree with the past medical, family and social history unless otherwise noted. All of the patient's questions were answered. I discussed/counseled the patient regarding the risks and benefits of surgery as well as the preoperative and postoperative care plan for this patient. The patient was seen and examined independentlyand relevant data reviewed by myself. A full chart review was performed. Due to the complexity of the patients condition as well as having at least one medical condition as listed above in medical history that is progressing despite medical management, this patient is considered high medical decision making and surgical intervention is necessary to help decrease the risk of continued chronic illness. The patient was seen and examined independently and relevant data reviewed by myself. A full chart review was performed. Patient Care Team: Xenia Lane as PCP - General (Family Medicine) Silviano Daley (Obstetrics and Gynecology) * ePggy Friedman MA - 09/10/2022 1:00 PM EDT [facility] SURGICAL WEIGHT LOSS MANAGEMENT PROGRAM Rooming Note - INITIAL CONSULTATION Patient: Anne Marie Peterson Date of : 1995 Service Date: 09/10/2022 Patient is here today to discuss the possibility of weight loss surgery. This patient is alone for the evaluation today she is interested in discussing weight loss surgery. Physician Supervised D/E: 3M Weight Metrics: Vitals BP: 129/71 Heart Rate: 90 Resp: 20 Temp: 36.4 C (97.5 F) Baseline Measures Initial Height: 5' 5.25 (165.7 cm) Initial Weight: 383 lb 3.2 oz (174 kg) Initial BMI: 63.27 Initial EBW: 256 lb 15.2 oz (117 kg) Initial Waist Cricumference: 73in Initial Neck Circumference: 17.75in Falls Risk Assessment Patient does nottake medications which affect BP or mental status Patient does not have newly prescribed or changed dosage of medications within past 30 days which affect BP or mental status Patient has not fallen in the past 2 months Patient does not demonstrate unsteady gait Patient uses the following ambulatory assistive devices: none Patient is low risk for falls. If high or moderate risk, patient instructed not to ambulate independently in the Center, and cord for call light placed within reach of patient. History of Difficult Intubation: No Patient is not on home O2 Completed by: Peggy Friedman MA documented in this [facility]07-20-2023 History of Present illness Narrative* Memo Campbell MD - 09/10/2022 1:00 PM EDT Images from the original note were not included. [facility] SURGICAL PROGRAM INITIAL EVALUATION Patient: Anne Marie Peterson Date of : 1995 Service Date: 09/10/22 Patient History: The patient is a pleasant 26 y.o. year old female with morbid obesity, who stands Height: 5' 5.25 (165.7 cm) tall with a weight of Weight: (!) 383 lb 3.2 oz (174 kg) , resulting in a BMI of Body mass index is 63.28 kg/m .. She is interested in discussing weight loss surgery. The patient suffers from multiple co-morbidities as a result of morbid obesity, including: PMHx: Past Medical History: Diagnosis Date Anemia Back pain Daytime sleepiness SANTOS (dyspnea on exertion) Fatigue History of kidney stones History of UTI Incontinence Joint pain, knee Co-Morbidity Assessment Co-Morbidity Initial Evaluation Today s Visit Type 2 DM N HTN N MOE N GERD N Elevated CHO/Lipids N Depression N The patient denies a history of myocardia infarction, deep vein thrombosis, pulmonary embolism, renal failure, hepatic failure, stroke, and seizure. She suffers from chronic low midline back pain and prediabetes. PSHx: Past Surgical History: Procedure Laterality Date HERNIA REPAIR 1999 Dr. Memo Duke / [facility] - inguinal hernia LAP,CHOLECYSTECTOMY (HISTORICAL) 2009 Dr. Memo Duke / [facility] Social History: This patient is unaccompanied for the evaluation today, She does not smoke, and does not drink alcohol. ROS: General: negative for - chills, fatigue, fever or malaise Ophthalmic: negative for - blurry vision, double vision or dry eyes ENT: negative for - headaches, hearing change, nasal congestion, sinus pain or sore throat Endocrine: negative for - hot flashes, polydipsia/polyuria or skin changes Respiratory: negative for - cough, shortness of breath or wheezing Cardiovascular: negative for - chest pain, dyspnea on exertion, irregular heartbeat, murmur, rapid heart rate or shortness of breath Gastrointestinal: negative for - change in bowel habits, hemoptysis, hematemesis, hematochezia, dysphagia, nausea, vomiting, diarrhea, constipation, weight loss Genito-Urinary: negative for - dysuria, hematuria, incontinence or nocturia Musculoskeletal: negative for - joint pain, joint stiffness, joint swelling, muscle pain or muscular weakness Neurological: negative for - confusion, dizziness, headaches or numbness/tingling Physical Examination: BP 129/71 Pulse 90 Temp 36.4 C (97.5 F) Resp 20 Ht 5' 5.25 (1.657 m) Wt (!) 383 lb 3.2 oz (174 kg) BMI 63.28 kg/m General: This patient is awake, alert, and oriented, and is in no apparent distress. Respiratory: Non-labored breathing Abdomen: Obese, soft, non-tender, non-distended, without masses. Incisions consistent with previoussurgeries. Scars from lap gerardo. Head and Neck: Obese, normocephalic and atraumatic. Soft and supple. Extremities: No cyanosis, clubbing or edema/ No calf tenderness/No restrictions of movement, is ambulatory without assistance. Neurological: Intact x 4 extremities, no focal deficits notes. Skin: No rashes or lesions noted. Rectal: Not Done Hernia: no hernias found on exam Assessment: The patient has failed multiple attempts at non-surgical weight loss, and is now seeking surgical intervention to promote permanent and consistent weight loss. She has chosen Laparoscopic Sandra-en-Y Gastric Bypass. She is well educated regarding it, as she has recently viewed our weight loss surgeryinformational seminar . In anticipation of weight reductive surgery now or in the future, we spent a great deal of time discussing the risks and benefits of, including but not limited to injury to intra-abdominal organs, breakdown of the gastric staple line, the need for re-operative therapy, prolonged hospitalization, mechanical ventilation, and . We discussed the possibility of bleeding, the need for blood transfusions, blood clots, hospital-acquired and intra-abdominal infection, anastomotic stricture, and worsening GERD. And we discussed the need for post-operative visit compliance, behavior modifications and diet changes, protein and vitamin supplementation, as well as routine scheduled and dedicated exercise. We discussed the potential weight loss benefit of approximately 60-70% of her excess body weight at 12-18 months post-op (LRYGB) and 50% of her excess body weight loss at 12-18 months after a LSG, as well as the possibility of insufficient weight loss or weight gain after 2 years post-operative time. Upon completion of all required pre-operative testing we will submit for insurance pre-authorization. All female patients of childbearing age were advised to refrain from becoming for 12-18 months after weight loss surgery. I advised them to discuss with their physician/gear cutter regarding contraception to prevent during this period of time after surgery. In addition, all patients were counseled on compliance with prescribed vitamin supplementation, office visit follow-up and compliance with program standards. Plan: I have recommended proceeding with the evaluation, workup and hr shared services consultant preoperative consultationsand testing for the primary procedure as outlined below: BARIATRIC AND METABOLIC SURGERY [facility] PATIENT SUMMARY Anne Marie Campbell 26 y.o. female with Body mass index is 63.28 kg/m . Planned Procedures: Laparoscopic Sandra-en-Y Gastric Bypass DM[] HTN[] MOE[] GERD[] HL[] OA[] TOB[] Date of Surgery: [address] INITIAL PRE-OP TESTING ORDERS/ RESULTS Labwork [x] CMP, TSH, Fasting Lipid Profile, Mg, Zinc, Vit B1 (whole blood), Vit B12, 25-OH Vit D, Fe, Ferritin, Folate, Hgb A1c EGD [x] Dx: [] GERD [x] Dyspepsia [] Other [] Not ordered Pathology [x] H. pylori [] Negative [] Positive [] Stool Antigen UGI [] US Abdomen [] [x] S/p gerardo [] Not ordered MOE eval [] [] On CPAP / Obtain settings Toxicology [] [] Urine drug screen/ETOH [] Nicotine Additional [] INITIAL CONSULTATIONS ORDERED CLEARANCE / MANAGEMENT Psychology [x] Dietitian [x] Cardiology [x] Pulmonary [] Others [] []Heme/Onc []Pain mgmt [x]Other: Please get results of sleep study - scheduled in September 2022 PSD [x] Physician supervised diet: []None [x]3 mos []6 mos Preop diet [x] Preop low calorie diet: []1 wk [x]2 wks [] Other: FINAL PRE-OP TESTING ORDERS RESULTS Labwork [x] [x] CBC [x]BMP []Serum Nicotine / Cotinine EKG [x] CXR [] POST-OP MEDICATIONS Ulcer Ppx [] Omeprazole 20 mg PO []QD Gallstone Ppx [] Ursodiol 300 mg []BID DVT Ppx [] DVT prophylaxis per final preop visit estimated risk Estimated calculated risk: % Schedule final pre-operative office visit with surgeon, pre-operative education class, and pre-operative exercise class prior to date of surgery I met with her today to discuss risks and benefits of laparoscopic weight loss surgery, the risks and benefits are outlined as above and visual aids were used to describe the procedure. I personally performed the evaluation and management of Anne Marie Peterson in the development of a treatment plan for this patient. I personally interviewed the patient and performed an individual physical examination. In addition, I discussed the patient's condition and treatment options with them. Ihave also reviewed and agree with the past medical, family and social history unless otherwise noted. All of the patient's questions were answered. I discussed/counseled the patient regarding the risks and benefits of surgery as well as the preoperative and postoperative care plan for this patient. The patient was seen and examined independentlyand relevant data reviewed by myself. A full chart review was performed. Due to the complexity of the patients condition as well as having at least one medical condition as listed above in medical history that is progressing despite medical management, this patient is considered high medical decision making and surgical intervention is necessary to help decrease the risk of continued chronic illness. The patient was seen and examined independently and relevant data reviewed by myself. A full chart review was performed. Patient Care Team: Xenia Lane as PCP - General (Family Medicine) Silviano Daley (Obstetrics and Gynecology) * Peggy Friedman MA - 09/10/2022 1:00 PM EDT [facility] SURGICAL WEIGHT LOSS MANAGEMENT PROGRAM Rooming Note - INITIAL CONSULTATION Patient: Anne Marie Peterson Date of : 1995 Service Date: 09/10/2022 Patient is here today to discuss the possibility of weight loss surgery. This patient is alone for the evaluation today she is interested in discussing weight loss surgery. Physician Supervised D/E: 3M Weight Metrics: Vitals BP: 129/71 Heart Rate: 90 Resp: 20 Temp: 36.4 C (97.5 F) Baseline Measures Initial Height: 5' 5.25 (165.7 cm) Initial Weight: 383 lb 3.2 oz (174 kg) Initial BMI: 63.27 Initial EBW: 256 lb 15.2 oz (117 kg) Initial Waist Cricumference: 73in Initial Neck Circumference: 17.75in Falls Risk Assessment Patient does nottake medications which affect BP or mental status Patient does not have newly prescribed or changed dosage of medications within past 30 days which affect BP or mental status Patient has not fallen in the past 2 months Patient does not demonstrate unsteady gait Patient uses the following ambulatory assistive devices: none Patient is low risk for falls. If high or moderate risk, patient instructed not to ambulate independently in the Center, and cord for call light placed within reach of patient. History of Difficult Intubation: No Patient is not on home O2 Completed by: Peggy Friedman MA documented in this encounterSDayton VA Medical [id number] Procedure [facility]04-20-2023 Procedure noteWSelect [facility], [facility]04-20-2023 Procedure noteWSelect [facility]04-20-2023 Procedure [facility] Author Jay Liu [facility] Note Date/Time June 17, 2024 12: 23am [facility] Medical Records Department [address] [place] [address] Emergency Department Summary 06/17/24 MR#: [id number] Acct: [id number] Name: ANNE MARIE PETERSON Rep #:[id number] : 1995 28 From: Jay Liu MD PCP: Xenia Lane PA-C Status:REG E R Location: ED HPI HPI - Female History of Present Illness Chief Complaint: Vag Bld, Preg Informant: patient Narrative Narrative: Patient is a A9 all miscarriages before 7 weeks, states she is just over 12 weeks , and started having bleeding with clots and nonlateralizing pelvic cramping tonight she is concerned. No injuries, no recent illness exceptfor a urinary infection, with mostly mid low back pain that started before the cramping and bleeding tonight, she went to an urgent care in [place] and wasprescribed Cipro for that which she is taking still. [facility] Medical History Depression Irritable bowel syndrome with diarrhea Other obesity IUD (intrauterine device) in place Wears glasses Anxiety Kidney stones Anemia Back pain Injury of back Syncope History of GI bleed Leg cramps History of Holter monitoring History of echocardiogram Hypertension Blood per rectum Palpitations Nausea Calculus of kidney SOB (shortness of breath) Right flank pain Elevated platelet count Abdominal pain macrosomia depression Gestational HTN Home Medications ?Medication ?Instructions ?Recorded ?Last Taken ?Type calcium citrate 500 mg PO TID 10/19/23 Unkno wn History dobshjsi-[id number]-[id number] 45 mg-folic 1 cap PO DAILY RNY gastric bypass 11/10/23 Unknown History acid 800 mcg-vit K 120 mcg capsule (Bariatric Multivitamins) PNV 153-FA 400 mcg-om3 35 mg-dha tab PO DAILY 05/16/24 Unknown History 25 mg-epa 5 mg-fish oil chew tablet cholecalciferol (vitamin D3) 125 125 mcg PO QDAY 05/16 Unknown History mcg (5,000 unit) capsule cholecalciferol (vitamin D3) 25 25 mcg PO QDAY 5 Unknown History mcg (1,000 unit) capsule ferrous sulfate 325 mg (65 mg 325 mg PO QDAY 05/16/24 Unknown History iron) tablet metoprolol tartrate 25 mg tablet 25 mg PO BID #30 tabs 05/17/24 Unknown Rx Allergy/AdvReac Type Severity Reaction Status Date / Time NSAIDS (Non-Steroidal AdvReac PT UNSURE Verified 06/16/24 22:29 Anti-Inflamma OF REACTION Family History Mother Skin cancer Grandmother Cancer Maternal- Non-Hodgkins lymphoma Grandfather Heart disease Maternal Diabetes Maternal- Type 2 Surgical History H/O gastric bypass Hx of hernia repair History of cholecystectomy History of surgery Social History adopted: No household members: children housing: house number of children: 4 current occupational status: employed current occupation: [employer] current occupational exposures/hazards: No pets and animals: Yes pets and animals: dog(s) and iguana(s) history of recent travel: No sexually active: Yes Smoking Status: Never smoker alcohol intake: never substance use type: does not use well-balanced diet: daily or most days caffeine: Yes Type: tea Number of servings: 1 eating out: 1-3 times/week during the past year weight has: decreased > 10 lbs what type of physical activity do you participate in: walking frequency: 3-4 times per week duration: 30-45 minutes/day serge/caodaism: Shinto seatbelt use: always do you feel safe at home: Yes 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 history: Engaged- [employer] at [employer] ROS ROS ED Constitutional Constitutional ED: Denies chills or fever(s) Eyes Eyes: Denies change in vision or diplopia ENT ENT ED: Denies rhinorrhea or sore throat Cardiovascular Cardiovascular: Denies chest pain, lightheadedness, palpitations or syncope Respiratory/Chest Respiratory/Chest: Denies cough or dyspnea Gastrointestinal Gastrointestinal: Reports abdominal pain; Denies diarrhea, nausea or vomiting Genitourinary Genitourinary ED: Reports as per HPI and vaginal bleeding; Denies dysuria or hematuria Musculoskeletal Musculoskeletal: Reports back pain; Denies neck pain Integumentary Denies abscess or rash Neurologic Neurologic: Denies headache(s), paresthesias or weakness Psychiatric Psychiatric: Denies anxiety or suicidal thoughts EXAM Physical Exam Const Vital Signs: 06/16/24 22:26 Temperature 98.3 F Temperature Source Oral Pulse Rate 105 H Respiratory Rate 18 Blood Pressure 137/92 H Blood Pressure Mean 107 Pulse Ox 99 Oxygen Delivery Method Room Air Positive well nourished, well developed and obese General Appearance ED: well developed and NAD Nutritional Appearance: obese HEENT Reports moist mucous membranes normocephalic and atraumatic Eyes PERRL and EOMs intact bilaterally Neck full ROM and supple Resp normal respiratory effort and clear to auscultation bilaterally Cardio regular rate, regular rhythm and no murmurs Rate: Negative for tachycardic GI non-tender and non-distended Auscultation: normoactive bowel sounds Palpation: soft Speculum Exam - Vagina: vaginal bleeding Back/Spine no CVA tenderness General Back: other FROM Extremity normal to inspection General Extremety ED: Negative for edema, pulses abnormal or tenderness General Extremity: Negative for edema or pulses abnormal Neuro oriented x3, CN's II-XII intact bilaterally and no sensory deficits noted Sensorium / Orientation: awake and alert Motor Exam: strength 5/5 throughout Skin no rashes or lesions noted and no wounds MDM MDM MDM Narrative Medical decision making narrative: I did bedside ultrasound. There is a single live intrauterine with heart tones at 166 and good movement, crown-rump length consistent with a 12- week exactly. Patient reassured. This essentially rules out ectopic and she does not have symptoms of a heterotopic . She is Rh+ no RhoGAM indicated. She was amenable to urinating for us and checking a urinalysis to see if her urine infection is improving since she still has low back pain and she was put on Cipro which is not recommended first-line antibiotic. Her urine does look like it is probably improved although I do not have access to her prior urinalysis or a culture. 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 We discussed reasons to return including severe bleeding. She is not having no symptoms of anemia at this time. History & Record Review Additional record(s) reviewed:: Prior labs (Blood type B+) Lab Data Labs: Laboratory Results - last 24 hr 06/16/24 23:35 Urine Color Yellow Urine Clarity Clear Urine pH 6.0 Ur Specific [place] 1.025 Urine Protein 30 H Urine Glucose (UA) Normal Urine Ketones 5 H Urine Occult Blood 250 H Urine Nitrite Negative Urine Bilirubin Negative Urine Urobilinogen 4 H Ur Leukocyte Esterase 25 H Urine RBC 25-50 SEEN Urine WBC 0-5 SEEN Ur Squamous Epith Cells 0-5 SEEN Urine Bacteria RARE Urine Mucus 0 SEEN Discharge Plan Triage Chief Complaint: Vag Bld, Preg ED Provider: Jay Liu Dx/Rx/DC Orders Clinical Impression: , threatened Instructions: Miscarriage Threatened Prescriptions: No Action calcium citrate 250 mg calcium tablet 500 mg PO TID Bariatric Multivitamins 45 mg iron- 800 mcg-120 mcg capsule 1 cap PO DAILY PNV [id number] 400 mcg-35 mg- 25 mg-5 mg tablet,chewable PO DAILY ferrous sulfate 325 mg (65 mg iron) tablet 325 mg PO QDAY cholecalciferol (vitamin D3) 25 mcg (1,000 unit) capsule 25 mcg PO QDAY cholecalciferol (vitamin D3) 125 mcg (5,000 unit) capsule 125 mcg PO QDAY metoprolol tartrate 25 mg tablet 25 mg PO BID Qty: 30 3RF Primary Care Provider: Xenia Lane Referrals: Peggy Flynn DO [Med Staff - Active Staff] - As soon as possible Xenia Lane PAChelseaC [Primary Care Provider] - Print Language: Vincentian Disposition Disposition: Home, Self Care What to do if you have Problems For any increased pain, shortness of breath, bleeding, nausea or vomiting, chestpain, or any unexpected problems, contact your Primary Care Provider. Call [facility] ([phone]) or report to the closest Emergency Room. Call 911 if necessary. 06/17/24 0023 <Electronically signed by Jay Liu MD> Cosigner Signature (if applicable): CC: RUMA Lane ~ Signed [facility] Work Phone: evaluation noteNo assessment information available [facility] Work Phone: evaluation note* Diagnosis Onset Date Resolution Status History of recurrent miscarriages acute Morbid obesity acute Possible exposure to STD non eactive Encounter for routine gynecological examination noneactive [facility] Work Phone: evaluation note* Diagnosis Onset Date Resolution Status History of recurrent miscarriages acute Morbid obesity acute Possible exposure to STD non eactive Encounter for routine gynecological examination noneactive Miscarriage acute Morbid obesity acute Prediabetes acute [facility] Work Phone: evaluation note* Diagnosis Onset Date Resolution Status History of recurrent miscarriages acute Morbid obesity acute Possible exposure to STD non eactive Encounter for routine gynecological examination noneactive Miscarriage acute Morbid obesity acute Prediabetes acute Abdominal pain chronic Chronic diarrhea chronic Rectal bleeding chronic [facility] Work Phone: evaluation note* Diagnosis Onset Date Resolution Status History of recurrent miscarriages acute Morbid obesity acute Possible exposure to STD non eactive Encounter for routine gynecological examination noneactive Morbid obesity acute Prediabetes acute Miscarriage resolved Abdominal pain chronic Chronic diarrhea chronic Rectal bleeding chronic Encounter for IUD insertion noneactive [facility] Work Phone: evaluation note* Diagnosis Onset Date Resolution Status Morbid obesity acute Prediabetes acute Miscarriage resolved Abdominal pain chronic Chronic diarrhea chronic Rectal bleeding chronic Encounter for IUD insertion noneactive Depression acute IUD (intrauterine device) in place acute Morbid obesity acute Irritable bowel syndrome with diarrhea chronic [facility] Work Phone: Evaluation note* Diagnosis Onset Date Resolution Status Abdominal pain chronic Chronic diarrhea chronic Rectal bleeding chronic Encounter for IUD insertion noneactive Depression acute IUD (intrauterine device) in place acute Morbid obesity acute Irritable bowel syndrome with diarrhea chronic [facility] Work Phone: evaluation note* Diagnosis Onset Date Resolution Status Depression acute IUD (intrauterine device) in place acute Morbid obesity resolved Irritable bowel syndrome with diarrhea chronic Binge-eating disorder, moderate acute BMI 60.0-69.9, adult acute Depression acute Hirsutism acute IUD (intrauterine device) in place acute Other obesity acute Prediabetes acute Hypertension [facility] Work Phone: Evaluation note* Diagnosis Chronic midline low back pain without sciatica- Primary Prediabetes Other abnormal glucose Morbid obesity with BMI of 60.0-69.9, adult (HCC) documented in this encounter [facility] note* Diagnosis Prediabetes Other abnormal glucose Morbid obesity with BMI of 60.0-69.9, adult (HCC) Chronic midline low back pain without sciatica documented in this encounter [facility] note* Diagnosis Daytime sleepiness- Primary Prediabetes Other abnormal glucose Morbid obesity with BMI of 60.0-69.9, adult (HCC) Chronic midline low back pain without sciatica Pre-operative laboratory examination Pre-procedural laboratory examination Pre-operative clearance Unspecified pre-operative examination Functional dyspepsia Dyspepsia and other specified disorders of function of stomach documented in this encounter [facility] note* Diagnosis Daytime sleepiness- Primary Prediabetes Other abnormal glucose Morbid obesity with BMI of 60.0-69.9, adult (HCC) Chronic midline low back pain without sciatica Pre-operative laboratory examination Pre-procedural laboratory examination Pre-operative clearance Unspecified pre-operative examination Functional dyspepsia Dyspepsia and other specified disorders of function of stomach documented in this encounter [facility] [employer] note* Diagnosis Onset Date Resolution Status Irritable bowel syndrome with diarrhea chronic Binge-eating disorder, moderate acute BMI 60.0-69.9, adult acute Depression acute Hirsutism acute IUD (intrauterine device) in place acute Prediabetes acute Hypertension chronic Other obesity chronic Daytime hypersomnia acute Other obesity [facility] Work Phone: Evaluation note* Diagnosis Prediabetes- Primary Other abnormal glucose Low back pain, unspecified back pain laterality, unspecified chronicity, unspecified whether sciatica present BMI 60.0-69.9, adult (HCC) Morbid obesity due to excess calories ([facility]) Functional dyspepsia Dyspepsia and other specified disorders of function of stomach documented in this encounter [facility] note* Diagnosis Morbid obesity with BMI of 60.0-69.9, adult (HCC)- Primary Functional dyspepsia Dyspepsia and other specified disorders of function of stomach documented [facility] this encounter [facility]* Diagnosis Prediabetes- Primary Other abnormal glucose Low back pain, unspecified back pain laterality, unspecified chronicity, unspecified whether sciatica present BMI 60.0-69.9, adult (HCC) Morbid obesity due to excess calories (HCC) Functional dyspepsia Dyspepsia and other specified disorders of function of stomach documented in this encounter [facility]* Diagnosis Daytime sleepiness- Primary Prediabetes Other abnormal glucose Morbid obesity with BMI of 60.0-69.9, adult (HCC) Chronic midline low back pain without sciatica Pre-operative laboratory examination Pre-procedural laboratory examination Pre-operative clearance Unspecified pre-operative examination Functional dyspepsia Dyspepsia and other specified disorders of function of stomach documented in this encounter [facility]* Diagnosis Vitamin D deficiency- Primary Low serum ferritin level Low serum iron Low vitamin B12 level Abnormal serum total protein level High cholesterol Pure hypercholesterolemia Functional dyspepsia Dyspepsia and other specified disorders of function of stomach documented in this encounter [facility]* Diagnosis Paroxysmal atrial fibrillation (HCC)- Primary Atrial fibrillation Functional dyspepsia Dyspepsia and other specified disorders of function of stomach [facility] Diagnosis Paroxysmal atrial fibrillation (HCC)- Primary Atrial fibrillation Functional dyspepsia Dyspepsia and other specified disorders of function of stomach [facility]* Diagnosis Paroxysmal atrial fibrillation (HCC)- Primary Atrial fibrillation MOE on CPAP Prediabetes Other abnormal glucose Mixed hyperlipidemia Functional dyspepsia Dyspepsia and other specified disorders of function of stomach [facility]* Diagnosis Functional dyspepsia Dyspepsia and other specified disorders of function of stomach Mixed hyperlipidemia MOE on CPAP Atrial fibrillation with RVR (HCC) Chronic superficial gastritis without bleeding Morbid obesity with BMI of 60.0-69.9, adult (HCC) [facility]* Diagnosis Paroxysmal atrial fibrillation (HCC) Atrial fibrillation [facility]* Diagnosis Prediabetes- Primary Other abnormal glucose Low back pain, unspecified back pain laterality, unspecified chronicity, unspecified whether sciatica present BMI 60.0-69.9, adult (HCC) Morbid obesity due to excess calories (HCC) [facility]* Diagnosis Pre-operative clearance- Primary Unspecified pre-operative examination MOE (obstructive sleep apnea) Obstructive sleep apnea (adult) (pediatric) Morbid obesity with BMI of 60.0-69.9, adult (HCC) [facility] Diagnosis Prediabetes- Primary Other abnormal glucose Low back pain, unspecified back pain laterality, unspecified chronicity, unspecified whether sciatica present BMI 60.0-69.9, adult (HCC) Morbid obesity due to excess calories (HCC) documented in this encounter [facility]* Diagnosis Vitamin D deficiency- Primary Low vitamin B12 level Abnormal serum total protein level documented [facility] this encounter [facility]* Diagnosis At high risk for venous thromboembolism (VTE)- Primary Morbid (severe) obesity due to excess calories (HCC) documented in this encounter [facility]* Diagnosis Morbid obesity with BMI of 60.0-69.9, adult (HCC)- Primary MOE on CPAP Prediabetes Other abnormal glucose Mixed hyperlipidemia Back pain, unspecified back location, unspecified back pain laterality, unspecified chronicity Hepatic steatosis Other chronic nonalcoholic liver disease Morbid (severe) obesity due to excess calories (HCC) documented [facility] this [facility]* Diagnosis Morbid obesity with BMI of 60.0-69.9, adult (HCC)- Primary Morbid (severe) obesity due to excess calories (HCC) documented in this encounter [facility]* Diagnosis Acute cystitis without hematuria- Primary Morbid (severe) obesity due to excess calories (HCC) [facility]* Diagnosis Morbid obesity with BMI of 60.0-69.9, adult (HCC)- Primary Morbid obesity with BMI of 60.0-69.9, adult (HCC) Morbid (severe) obesity due to excess calories (HCC) MOE on CPAP Prediabetes Other abnormal glucose Mixed hyperlipidemia Hypertension Unspecified essential hypertension Hepatic steatosis Other chronic nonalcoholic liver disease [facility]* Diagnosis Dizziness- Primary Dizziness and giddiness Hemoperitoneum Hemoperitoneum (nontraumatic) Leg swelling Swelling of limb At high risk for venous thromboembolism (VTE) Morbid obesity with BMI of 60.0-69.9, adult (HCC) [facility]* Diagnosis Chronic midline low back pain without sciatica- Primary Prediabetes Other abnormal glucose Morbid obesity with BMI of 60.0-69.9, adult (HCC) documented in this encounter [facility] note* Diagnosis Encounter for postoperative care- Primary Deficiency of multiple nutrient elements Other nutritional deficiency Intestinal malabsorption, unspecified type Morbid obesity with BMI of 60.0-69.9, adult (HCC) documented in this encounter [facility] note* Diagnosis Dehydration- Primary documented in this encounter [facility] note* Diagnosis Dehydration- Primary documented in this encounter [facility]* Diagnosis Painless pancreatitis- Primary Chronic pancreatitis Acute pancreatitis, unspecified complication status, unspecified pancreatitis type Nausea and vomiting, unspecified vomiting type Severe malnutrition (CMS/HCC) ([facility]) Nutritional marasmus On total parenteral nutrition Paroxysmal atrial fibrillation (HCC) Atrial fibrillation Acute pancreatitis, unspecified complication status, unspecified pancreatitis type Severe malnutrition (CMS/HCC) (HCC) Nutritional marasmus Hypokalemia Hypopotassemia History of gastric bypass Atrial fibrillation with RVR (HCC) MOE on CPAP Prediabetes Other abnormal glucose Mixed hyperlipidemia Morbid obesity with BMI of 60.0-69.9, adult (HCC) documented in this encounter [facility] note* Diagnosis Encounter for postoperative care- Primary MOE on CPAP Primary hypertension Unspecified essential hypertension Prediabetes Other abnormal glucose Deficiency of multiple nutrient elements Other nutritional deficiency Intestinal malabsorption, unspecified type Morbid obesity with BMI of 50.0-59.9, adult (HCC) Acute pancreatitis, unspecified complication status, unspecified pancreatitis type [facility] Diagnosis Paroxysmal atrial fibrillation (HCC)- Primary Atrial fibrillation Atrial fibrillation with RVR (HCC) Orthostatic hypotension documented in this encounter [facility] note* Diagnosis Paroxysmal atrial fibrillation (HCC)- Primary Atrial fibrillation Atrial fibrillation with RVR (HCC) Orthostatic hypotension [facility]* Diagnosis Encounter for postoperative care- Primary MOE on CPAP Primary hypertension Unspecified essential hypertension Prediabetes Other abnormal glucose Deficiency of multiple nutrient elements Other nutritional deficiency Intestinal malabsorption, unspecified type Morbid obesity with BMI of 50.0-59.9, adult (HCC) Acute pancreatitis, unspecified complication status, unspecified pancreatitis type [facility]* Diagnosis Intestinal malabsorption, unspecified type- Primary Deficiency of multiple nutrient elements Other nutritional deficiency MOE on CPAP Primary hypertension Unspecified essential hypertension Morbid obesity with BMI of 50.0-59.9, adult (HCC) History of Sandra-en-Y gastric bypass Lightheadedness Dizziness and giddiness [facility] Diagnosis Paroxysmal atrial fibrillation (HCC)- Primary Atrial fibrillation [facility]* Diagnosis MOE (obstructive sleep apnea)- Primary Obstructive sleep apnea (adult) (pediatric) Class 3 severe obesity due to excess calories with serious comorbidity and body mass index (BMI) of 50.0 to 59.9 in adult (HCC) [facility]* Diagnosis Transaminitis- Primary Nonspecific elevation of levels of transaminase or lactic acid dehydrogenase (LDH) Transaminitis Nonspecific elevation of levels of transaminase or lactic acid dehydrogenase (LDH) Elevated alkaline phosphatase level Intractable nausea Anorexia [facility]* Diagnosis Transaminitis- Primary Nonspecific elevation of levels of transaminase or lactic acid dehydrogenase (LDH) Transaminitis Nonspecific elevation of levels of transaminase or lactic acid dehydrogenase (LDH) Hx of gastric bypass Hyperbilirubinemia Disorders of bilirubin excretion History of gastric bypass Deficiency of multiple nutrient elements Other nutritional deficiency Morbid obesity with BMI of 45.0-49.9, adult (HCC) Elevated LFTs Other abnormal blood chemistry Nausea with vomiting, unspecified [facility]* Diagnosis Intestinal malabsorption, unspecified type- Primary Deficiency of multiple nutrient elements Other nutritional deficiency History of gastric bypass Back pain, unspecified back location, unspecified back pain laterality, unspecified chronicity Primary hypertension Unspecified essential hypertension MOE on CPAP Morbid obesity with BMI of 45.0-49.9, adult ([facility]) Elevated LFTs Other abnormal blood chemistry Intertrigo Other specified erythematous condition [facility]* Diagnosis MOE (obstructive sleep apnea) Obstructive sleep apnea (adult) (pediatric) [facility]* Diagnosis Obstructive sleep apnea (adult) (pediatric)- Primary [facility]* Diagnosis Dehydration- Primary [facility]* Diagnosis Intestinal malabsorption, unspecified type- Primary Deficiency of multiple nutrient elements Other nutritional deficiency History of gastric bypass Back pain, unspecified back location, unspecified back pain laterality, unspecified chronicity Primary hypertension Unspecified essential hypertension MOE on CPAP Morbid obesity with BMI of 45.0-49.9, adult (HCC) Elevated LFTs Other abnormal blood chemistry Intertrigo Other specified erythematous condition Paroxysmal atrial fibrillation (HCC)- Primary Atrial fibrillation Primary hypertension Unspecified essential hypertension MOE on CPAP [facility]* Diagnosis Paroxysmal atrial fibrillation (HCC)- Primary Atrial fibrillation Primary hypertension Unspecified essential hypertension MOE on CPAP [facility]* Diagnosis Paroxysmal atrial fibrillation (HCC)- Primary Atrial fibrillation Primary hypertension Unspecified essential hypertension MOE on CPAP Intestinal malabsorption, unspecified type- Primary Deficiency of multiple nutrient elements Other nutritional deficiency History of gastric bypass MOE on CPAP Low zinc level Low vitamin D level [facility]* Diagnosis Paroxysmal atrial fibrillation (HCC)- Primary Atrial fibrillation Primary hypertension Unspecified essential hypertension MOE on CPAP Iron deficiency- Primary Disorders of iron metabolism B12 deficiency Vitamin D deficiency Zinc deficiency Mineral deficiency, not elsewhere classified [facility]* Diagnosis Paroxysmal atrial fibrillation (HCC)- Primary Atrial fibrillation Primary hypertension Unspecified essential hypertension MOE on CPAP Iron deficiency- Primary Disorders of iron metabolism B12 deficiency Vitamin D deficiency Zinc deficiency Mineral deficiency, not elsewhere classified Deficiency of multiple nutrient elements Other nutritional deficiency Intestinal malabsorption, unspecified type History of gastric bypass Back pain, unspecified back location, unspecified back pain laterality, unspecified chronicity [facility]* Diagnosis Recurrent loss without current [facility] Trey Malone [facility] June 11, 2022 10:38am Note Date/Time June 11, 2022 10: 38am [facility] Medical Records Department [address] [place] [id number] History & Physical Exam 06/11/22 1038 MR#: [id number] Acct: [id number] Name: ANNE MARIE PETERSON Rep #[id number] : 1995 26 From: Trey Malone DO PCP: Xenia Lane PA-C Status:REG S MD Location: [place] [address] History and Physical Date of Admission: 06/11/22 26 F who presents to the office today to establish with GI, referred for abdominal pain, rectal bleeding, chronic diarrhea. GI issues began more than 6 yrs ago. She reports the rectal bleeding has gotten worse. Most recent episode of rectal bleeding was a week ago, this time she didn't have pain but sometimes gets pain assoc with it, gets blood clots, most recent episode lasted 4 days. Rectal blood not mixed with stool, bleeds when sitting on toilet. No tenesmus. Some episodes she gets contraction-type pain across upper abd, goes from right to left. Sometimes gets lower mid abd pain. No pelvic or rectal pain. No heartburn or acid reflux. Has frequent nausea, worse in AM and in the evening, no vomiting. No formed stools, all stools are loose x yrs, urgent postprandial diarrhea within 20 min of eating, yellow and mucus in the stool, 10BMs per day, no nocturnal diarrhea but it starts as soon as she wakes up. She takes prn loperamide. No routine NSAID use. She had egd and colonoscopy with Dr Hsieh approx 6 yrs ago, told everything was normal. PMH: anemia, prediabetes, morbid obesity, multiple SAB, back pain/disc disease PSH: cholecystectomy age 14, hernia repair age 4 FH: Mother diverticulitis. Maternal grandmother UC. Maternal grandfather diverticulitis. 03/2022 hgb 9.2, albumin 3, normal ast/alt/alk phos/bili 01/2022 CT abd pel w/o contrast: nonobstructing left nephrolithiasis ROS Const Constitutional: Positive for fatigue and weight change ENT ENT: No difficulty swallowing Gastro GI: Positive for abdominal pain, change in bowel habits, diarrhea, heartburn, Blood in stool and nausea/dyspepsia; No belching, bloating, change in stool character, coffee ground emesis, constipation, cramping, difficulty swallowing, feeling full early, excessive flatus, incontinent of stools, Vomiting blood/hematemesis, loose stools, Black,tarry stools, pain with swallowing, vomiting or other Musc Musculoskeletal: Positive for joint pain, back pain, muscle cramps and stiffness Skin Skin: No yellowing of the eye or itchy eyes Psych Psychiatric: Positive for anxiety and No depression Endo Endocrine: Positive for fatigue and weight change Aller/Imm Allergy/Immunologic: No itchy eyes Oniel/Lymp Hematologic/Lymphatic: No easy bleeding or easy bruising Exam Const General: cooperative, comfortable and no acute distress Nutritional Appearance: obese Orientation: alert, awake and oriented x3 HENMT Head: normal to inspection Eyes Sclera: sclerae normal Resp Effort & Inspection: normal respiratory effort GI Palpation: soft, no hepatosplenomegaly, no masses and nontender Skin General: no rashes or lesions noted Neuro Speech: speech normal Gait: normal gait Psych Mood: euthymic mood Quality Reporting Tobacco Screening ([facility]) Smoking Status: Never smoker Assessment and Plan Assessment and Plan (1) Rectal bleeding: ?Status:?Chronic ?Plan: This delightful 26-yr-old female has chronic rectal bleeding, diarrhea, abdominal pain, anemia, recurrent miscarriages, FH UC Will have her start colestipol 1 gram at HS, we can increase if needed, ok to take loperamide prn Biochemical eval to include w/u for IBS, celiac, infection CT abd pel w/ oral and IV contrast EGD and colonoscopy with office f/u 2 wks later (2) Chronic diarrhea: ?Status:?Chronic ?Plan: See above (3) Abdominal pain: ?Status:?Chronic ?Plan: See above ? ? ? Orders: Orders C Miscellaneous Lab Procedure Today K52.9 - Noninfective gastroenteritis and colitis, unspecified, K62.5 - Hemorrhage of anus and rectum, R10.9 - Unspecifiedabdominal pain ? Comprehensive Metabolic Profil Today K52.9 - Noninfective gastroenteritis and colitis, unspecified, K62.5 - Hemorrhage of anus and rectum, R10.9 - Unspecifiedabdominal pain ? CRP Today K52.9 - Noninfective gastroenteritis and colitis, unspecified, K62.5 -Hemorrhage of anus and rectum, R10.9 - Unspecified abdominal pain ? LDH Today K52.9 - Noninfective gastroenteritis and colitis, unspecified, K62.5 -Hemorrhage of anus and rectum, R10.9 - Unspecified abdominal pain ? CBC W/Diff, Automated Today K52.9 - Noninfective gastroenteritis and colitis, unspecified, K62.5 - Hemorrhage of anus and rectum, R10.9 - Unspecified abdominal pain ? Erythrocyte Sed Rate Today K52.9 - Noninfective gastroenteritis and colitis, unspecified, K62.5 - Hemorrhage of anus and rectum, R10.9 - Unspecified abdominal pain ? DANGELO Comprehensive Panel Today K52.9 - Noninfective gastroenteritis and colitis, unspecified, K62.5 - Hemorrhage of anus and rectum, R10.9 - Unspecified abdominal pain ? Calprotectin, Stool Today K52.9 - Noninfective gastroenteritis and colitis, unspecified, K62.5 - Hemorrhage of anus and rectum, R10.9 - Unspecified abdominal pain ? Stool Lactoferrin/WBC Today K52.9 - Noninfective gastroenteritis and colitis, unspecified, K62.5 - Hemorrhage of anus and rectum, R10.9 - Unspecified abdominal pain ? ANCA Today K52.9 - Noninfective gastroenteritis and colitis, unspecified, K62.5 - Hemorrhage of anus and rectum, R10.9 - Unspecified abdominal pain ? Celiac Disease Profile Today K52.9 - Noninfective gastroenteritis and colitis, unspecified, K62.5 - Hemorrhage of anus and rectum, R10.9 - Unspecified abdominal pain ? Immunoglobulins G/A/M/E Today K52.9 - Noninfective gastroenteritis and colitis, unspecified, K62.5 - Hemorrhage of anus and rectum, R10.9 - Unspecified abdominal pain ? ELVIRA + Protein Elect, Serum Today K52.9 - Noninfective gastroenteritis and colitis, unspecified, K62.5 - Hemorrhage of anus and rectum, R10.9 - Unspecifiedabdominal pain ? ENTERIC PATHOGEN PANEL STOOL Today K52.9 - Noninfective gastroenteritis and colitis, unspecified, K58.9 - Irritable bowel syndrome without diarrhea, K62.5 - Hemorrhage of anus and rectum, R10.9 - Unspecified abdominal pain ? CDIFF (PCR) Today K52.9 - Noninfective gastroenteritis and colitis, unspecified,K62.5 - Hemorrhage of anus and rectum, R10.9 - Unspecified abdominal pain ? Abdomen/Pelvis WITH Contrast Today K52.9 - Noninfective gastroenteritis and colitis, unspecified, K62.5 - Hemorrhage of anus and rectum, R10.9 - Unspecifiedabdominal pain ? Medications: New colestipol 1 g? PO ONCE 60 tabs 1RF diarrhea ? ? 06/11/22 1038 <Electronically signed by Trey Friend > Cosigner Signature (if applicable): CC: RUMA Lane; Trey Friend, DO~ Signed [facility] Work Phone: Hospital Discharge instructions* Attachments The following attachments cannot be sent through Care Everywhere. * Upper GI Endoscopy Discharge Instructions (Vincentian) documented in this [facility] Discharge instructions Additional Instructions Please follow-up with your GUN FERTILIZER for repeat evaluation and return to the ER should you have any further concernsWSelect [facility] Work Phone: Instructions* Attachments The following attachments cannot be sent through Care Everywhere. * Heart Healthy Diet (Vincentian) * Atrial Fibrillation (Vincentian) [facility] Consultation (Routine) - Pending Review Specialty Diagnoses / Procedures Referred By Korina gill Referred To Contact Pulmonary Disease / Pulmonology Diagnoses Morbid obesity with BMI of 60.0-69.9, adult (HCC) Daytime sleepiness Pre-operative clearance Procedures UT OFFICE/OUTPATIENT NEW HIGH MDM 60-74 MINUTES Miley Moise PA [address] [place] [address] [facility] [address] [place] [address] Referral ID Status Reason Start Date Expiration Date Visits Requested Visits Authorized [id number] Pending Review Specialty Services Required 10/06/2022 10/06/2023 1 1 * Consultation (Elective) - Pending Review Specialty Diagnoses / Procedures Referred By Korina gill Referred To Contact Cardiology Diagnoses Morbid obesity with BMI of 60.0-69.9, adult (HCC) Daytime sleepiness Pre-operative clearance Procedures UT OFFICE/OUTPATIENT NEW HIGH MDM 60-74 MINUTES Miley Moise PA [address] [place] [address] [facility] [address] [place] [address] Referral ID Status Reason Start Date Expiration Date Visits Requested Visits Authorized [id number] Pending Review Specialty Services Required 10/06/2022 10/06/2023 1 1 Murphy [employer]arl[facility] [employer] for referral (narrative)* Consultation (Routine) - Pending Review Specialty Diagnoses / Procedures Referred By Contac t Referred To Contact Pulmonary Disease / Pulmonology Diagnoses Morbid obesity with BMI of 60.0-69.9, adult (HCC) Daytime sleepiness Pre-operative clearance Procedures UT OFFICE/OUTPATIENT NEW HIGH MDM 60-74 MINUTES Miley Moise PA [address] [place] [address] [facility] [address] [place] [address] Referral ID Status Reason Start Date Expiration Date Visits Requested Visits Authorized [id number] Pending Review Specialty Services Required 10/06/2022 10/06/2023 1 1 * Consultation (Elective) - Pending Review Specialty Diagnoses / Procedures Referred By Contac t Referred To Contact Cardiology Diagnoses Morbid obesity with BMI of 60.0-69.9, adult (HCC) Daytime sleepiness Pre-operative clearance Procedures UT OFFICE/OUTPATIENT NEW HIGH MDM 60-74 MINUTES Miley Moise PA [address] [place] [address] [address] [place] [address] Referral ID Status Reason Start Date Expiration Date Visits Requested Visits Authorized [id number] Pending Review Specialty Services Required 10/06/2022 10/06/2023 1 1 Murphy NoWaitRecarlin for referral (narrative)* Consultation (Routine) - Pending Review Specialty Diagnoses / Procedures Referred By Contac t Referred To Contact Pulmonary Disease / Pulmonology Diagnoses Morbid obesity with BMI of 60.0-69.9, adult (HCC) Daytime sleepiness Pre-operative clearance Procedures UT OFFICE/OUTPATIENT NEW HIGH MDM 60-74 MINUTES Miley Moise PA [address] [place] [address] [facility] [address] [place] [address] Referral ID Status Reason Start Date Expiration Date Visits Requested Visits Authorized [id number] Pending Review Specialty Services Required 10/06/2022 10/06/2023 1 1 * Consultation (Elective) - Closed Specialty Diagnoses / Procedures Referred By Contac t Referred To Contact Cardiology Diagnoses Morbid obesity with BMI of 60.0-69.9, adult (HCC) Daytime sleepiness Pre-operative clearance Procedures UT OFFICE/OUTPATIENT NEW HIGH MDM 60-74 MINUTES Miley Moise PA [address] [place] [address] [address] [place] [address] Referral ID Status Reason Start Date Expiration Date V isits Requested Visits Authorized [id number] Closed Specialty Services Required 10/06/2022 10/06/2023 [address] [facility] for referral (narrative)* Consultation (Routine) - Pending Review Specialty Diagnoses / Procedures Referred By Contac t Referred To Contact Cardiology Diagnoses Paroxysmal atrial fibrillation (HCC) Atrial fibrillation with RVR (HCC) Procedures UT OFFICE/OUTPATIENT NEW HIGH MDM 60 MINUTES Ravi Abreu MD [address] [place] [address] [address] [facility] [address] [place] [address] Referral ID Status Reason Start Date Expiration Date Visits Requested Visits Authorized [id number] Pending Review Specialty Services Required 07/05/2023 07/04/2024 1 1 Murphy Scott for referral (narrative)No reason for referral information availableWSelect [facility] Work Phone: Summary Purpose Family History No Family History Records Found Relationship Condition Age at Onset Recorded Date/T ankita mother Malignant neoplasm of skin Unknown Relationship Condition Age at Onset Recorded Date/T ankita mother Malignant neoplasm of skin Unknown grandmother Malignant neoplasm Unknown grandfather Cardiac disease Unknown Diabetes mellitus Unknown Advance Directives No Advanced Directives Records Found Date Activated Date Inactivated Comments 10/28/2023 3:40 PM 11/02/2023 7:11 PM Date Activated Date Inactivated Comments 10/27/2023 3:35 AM 10/28/2023 1:07 AM Date Activated Date Inactivated Comments 06/04/2023 12:43 AM 06/11/2023 12:40 PM Date Activated Date Inactivated Comments 05/19/2023 11:32 PM 05/21/2023 3:08 PM Date Activated Date Inactivated Comments 05/10/2023 9:15 PM 05/11/2023 5:08 PM Advance Directive Response Recorded Date/ Time Living Will No March 12 7:40am Power of Flour Mixer No March 12, 2021 7:40am Advance Directive Response Recorded Date/ Time Living Will No March 12 8:40am Power of Flour Mixer No March 12, 2021 8:40am Advance Directive Response Recorded Date/ Time Living Will No June 08, 2022 1:47pm Power of Flour Mixer No June 08 1:47pm Latest Code Status on File Code Status Date Activated Date Inactivated Comments Full Code 01/12/2023 6:59 AM 01/12/2023 10:39 AM Latest Code Status on File Code Status Date Activated Date Inactivated Comments Full Code 01/12/2023 6:59 AM 01/12/2023 10:39 AM Latest Code Status on File Code Status Date Activated Date Inactivated Comments Full Code 05/10/2023 9:15 PM 05/11/2023 5:08 PM Code Status History Code Status Date Activated Date Inactivated Comments Full Code 05/10/2023 11:54 AM 05/10/2023 9:15 PM Full Code 01/12/2023 6:59 AM 01/12/2023 10:39 AM Latest Code Status on File Code Status Date Activated Date Inactivated Comments Full Code 05/10/2023 9:15 PM 05/11/2023 5:08 PM Code Status History Code Status Date Activated Date Inactivated Comments Full Code 05/10/2023 11:54 AM 05/10/2023 9:15 PM Full Code 01/12/2023 6:59 AM 01/12/2023 10:39 AM Latest Code Status on File Code Status Date Activated Date Inactivated Comments Full Code 05/19/2023 11:32 PM 05/21/2023 3:08 PM Code Status History Code Status Date Activated Date Inactivated Comments Full Code 05/10/2023 9:15 PM 05/11/2023 5:08 PM Full Code 05/10/2023 11:54 AM 05/10/2023 9:15 PM Full Code 01/12/2023 6:59 AM 01/12/2023 10:39 AM Latest Code Status on File Code Status Date Activated Date Inactivated Comments Full Code 06/04/2023 12:43 AM Code Status History Code Status Date Activated Date Inactivated Comments Full Code 05/19/2023 11:32 PM 05/21/2023 3:08 PM Full Code 05/10/2023 9:15 PM 05/11/2023 5:08 PM Full Code 05/10/2023 11:54 AM 05/10/2023 9:15 PM Full Code 01/12/2023 6:59 AM 01/12/2023 10:39 AM Latest Code Status on File Code Status Date Activated Date Inactivated Comments Full Code 06/04/2023 12:43 AM 06/11/2023 12:40 PM Latest Code Status on File Code Status Date Activated Date Inactivated Comments Full Code 06/04/2023 12:43 AM 06/11/2023 12:40 PM Code Status History Code Status Date Activated Date Inactivated Comments Full Code 05/19/2023 11:32 PM 05/21/2023 3:08 PM Full Code 05/10/2023 9:15 PM 05/11/2023 5:08 PM Full Code 05/10/2023 11:54 AM 05/10/2023 9:15 PM Full Code 01/12/2023 6:59 AM 01/12/2023 10:39 AM Date Activated Date Inactivated Comments 06/04/2023 12:43 AM 06/11/2023 12:40 PM Date Activated Date Inactivated Comments 05/19/2023 11:32 PM 05/21/2023 3:08 PM Date Activated Date Inactivated Comments 05/10/2023 9:15 PM 05/11/2023 5:08 PM Date Activated Date Inactivated Comments 05/10/2023 11:54 AM 05/10/2023 9:15 PM Date Activated Date Inactivated Comments 01/12/2023 6:59 AM 01/12/2023 10:39 AM Date Activated Date Inactivated Comments 06/04/2023 12:43 AM 06/11/2023 12:40 PM Date Activated Date Inactivated Comments 05/19/2023 11:32 PM 05/21/2023 3:08 PM Date Activated Date Inactivated Comments 05/10/2023 9:15 PM 05/11/2023 5:08 PM Date Activated Date Inactivated Comments 05/10/2023 11:54 AM 05/10/2023 9:15 PM Date Activated Date Inactivated Comments 01/12/2023 6:59 AM 01/12/2023 10:39 AM Date Activated Date Inactivated Comments 10/27/2023 3:35 AM 10/28/2023 1:07 AM Date Activated Date Inactivated Comments 06/04/2023 12:43 AM 06/11/2023 12:40 PM Date Activated Date Inactivated Comments 05/19/2023 11:32 PM 05/21/2023 3:08 PM Date Activated Date Inactivated Comments 05/10/2023 9:15 PM 05/11/2023 5:08 PM Date Activated Date Inactivated Comments 05/10/2023 11:54 AM 05/10/2023 9:15 PM Date Activated Date Inactivated Comments 10/28/2023 3:40 PM Date Activated Date Inactivated Comments 10/28/2023 3:40 PM 11/02/2023 7:11 PM Date Activated Date Inactivated Comments 10/27/2023 3:35 AM 10/28/2023 1:07 AM Date Activated Date Inactivated Comments 06/04/2023 12:43 AM 06/11/2023 12:40 PM Date Activated Date Inactivated Comments 05/19/2023 11:32 PM 05/21/2023 3:08 PM Date Activated Date Inactivated Comments 05/10/2023 9:15 PM 05/11/2023 5:08 PM Advance Directive Response Recorded Date/ Time Living Will No June 08, 2022 1:47pm Power of Flour Mixer No June 08 1:47pm Living Will No March 10 4:12pm Power of Flour Mixer No March 10, 2024 4:12pm Advance Directive Response Recorded Date/ Time Living Will No June 08, 2022 1:47pm Do you have a Healthcare Power of Flour Mixer? No June 08, 2022 1:47pm Living Will No March 10 4:12pm Do you have a Healthcare Power of Flour Mixer? No March 10, 2024 4:12pm Advance Directive Response Recorded Date/ Time Living Will No June 08, 2022 1:47pm Do you have a Healthcare Power of Flour Mixer? No June 08, 2022 1:47pm Do you have a Healthcare Power of Flour Mixer? No June 16, 2024 11:46pm Living Will No March 10 4:12pm Do you have a Healthcare Power of Flour Mixer? No March 10, 2024 4:12pm Advance Directive Response Recorded Date/ Time Living Will No June 08, 2022 1:47pm Do you have a Healthcare Power of Flour Mixer? No June 08, 2022 1:47pm Do you have a Healthcare Power of Flour Mixer? No June 16, 2024 11:46pm Do you have a Healthcare Power of Flour Mixer? No June 27, 2024 11:34pm Living Will No March 10 4:12pm Do you have a Healthcare Power of Flour Mixer? No March 10, 2024 4:12pm Chief Complaint and Reason for Visit Chief Complaint E ORDER E ORDER Chief Complaint E ORDER E ORDER Annual (ADVANCE AGENT) ENCOUNTER FOR SCREENING Reason for Visit History of recurrent miscarriages Morbid obesity Possible exposure to STD Encounter for routine gynecological examination Chief Complaint E ORDER E ORDER Annual (ADVANCE AGENT) ENCOUNTER FOR SCREENING DATING Miscarriage/R/O ectopic Reason for Visit History of recurrent miscarriages Morbid obesity Possible exposure to STD Encounter for routine gynecological examination Miscarriage Morbid obesity Prediabetes Chief Complaint E ORDER E ORDER Annual (ADVANCE AGENT) ENCOUNTER FOR SCREENING DATING Miscarriage/R/O ectopic Consult ABDOMINAL PAIN Reason for Visit History of recurrent miscarriages Morbid obesity Possible exposure to STD Encounter for routine gynecological examination Miscarriage Morbid obesity Prediabetes Abdominal pain Chronic diarrhea Rectal bleeding Chief Complaint E ORDER E ORDER Annual (ADVANCE AGENT) ENCOUNTER FOR SCREENING DATING Miscarriage/R/O ectopic Consult ABDOMINAL PAIN IUD INSERTION Reason for Visit History of recurrent miscarriages Morbid obesity Possible exposure to STD Encounter for routine gynecological examination Morbid obesity Prediabetes Miscarriage Abdominal pain Chronic diarrhea Rectal bleeding Encounter for IUD insertion Chief Complaint E ORDER E ORDER Annual (ADVANCE AGENT) ENCOUNTER FOR SCREENING DATING Miscarriage/R/O ectopic Consult ABDOMINAL PAIN IUD INSERTION MORBID OBESITY Reason for Visit History of recurrent miscarriages Morbid obesity Possible exposure to STD Encounter for routine gynecological examination Morbid obesity Prediabetes Miscarriage Abdominal pain Chronic diarrhea Rectal bleeding Encounter for IUD insertion Chief Complaint E ORDER E ORDER Annual (ADVANCE AGENT) ENCOUNTER FOR SCREENING DATING Miscarriage/R/O ectopic Consult ABDOMINAL PAIN IUD INSERTION MORBID OBESITY MORBID OBESITY Reason for Visit History of recurrent miscarriages Morbid obesity Possible exposure to STD Encounter for routine gynecological examination Morbid obesity Prediabetes Miscarriage Abdominal pain Chronic diarrhea Rectal bleeding Encounter for IUD insertion Chief Complaint DATING Miscarriage/R/O ectopic Consult ABDOMINAL PAIN IUD INSERTION MORBID OBESITY MORBID OBESITY iud check 2 WK FU MORBID OBESITY Reason for Visit Morbid obesity Prediabetes Miscarriage Abdominal pain Chronic diarrhea Rectal bleeding Encounter for IUD insertion Depression IUD (intrauterine device) in place Morbid obesity Irritable bowel syndrome with diarrhea Chief Complaint Consult ABDOMINAL PAIN IUD INSERTION MORBID OBESITY MORBID OBESITY iud check 2 WK FU MORBID OBESITY MORBID OBESITY Reason for Visit Abdominal pain Chronic diarrhea Rectal bleeding Encounter for IUD insertion Depression IUD (intrauterine device) in place Morbid obesity Irritable bowel syndrome with diarrhea Chief Complaint MORBID OBESITY MORBID OBESITY iud check 2 WK FU MORBID OBESITY MORBID OBESITY MORBID OBESITY Weight Management Consult Reason for Visit Depression IUD (intrauterine device) in place Morbid obesity Irritable bowel syndrome with diarrhea Binge-eating disorder, moderate BMI 60.0-69.9, adult Depression Hirsutism IUD (intrauterine device) in place Other obesity Prediabetes Hypertension Chief Complaint MORBID OBESITY iud check 2 WK FU MORBID OBESITY MORBID OBESITY MORBID OBESITY Weight Management Consult Reason for Visit Depression IUD (intrauterine device) in place Morbid obesity Irritable bowel syndrome with diarrhea Binge-eating disorder, moderate BMI 60.0-69.9, adult Depression Hirsutism IUD (intrauterine device) in place Other obesity Prediabetes Hypertension Chief Complaint 2 WK FU MORBID OBESITY MORBID OBESITY MORBID OBESITY Weight Management Consult Sleep apnea Hypersomnia, unspecified Reason for Visit Irritable bowel synd charanjit with diarrhea Binge-eating disorder, moderate BMI 60.0-69.9, adult Depression Hirsutism IUD (intrauterine device) in place Prediabetes Hypertension Other obesity Daytime hypersomnia Other obesity Chief Complaint Admit Date EORDER February 28, 2024 5: 55pm LIVER LESION March 02, 2024 7: 00am Follow up HCG March 02, 2024 8: 55am NEEDS ORDER March 09, 2024 1 :23pm ECTOPIC March 10, 2024 3 :01pm Follow-up methotrexate March 13 1:11pm 6 M FU April 21, 2024 9:06am INT LABS April 21, 2024 9:25am VIABILITY May 01, 2024 3:4 0pm E ORDER May 02, 2024 6:2 4pm Reason for Visit Admit Date Incomplete March 02, 2024 8: 55am Recurrent loss March 02 8:55am Ectopic March 13, 2024 1 :11pm Elevated liver enzymes April 21 9:06am Chief Complaint Admit Date EORDER February 28, 2024 5: 55pm LIVER LESION March 02, 2024 7: 00am Follow up HCG March 02, 2024 8: 55am NEEDS ORDER March 09, 2024 1 :23pm ECTOPIC March 10, 2024 3 :01pm Follow-up methotrexate March 13 1:11pm 6 M FU April 21, 2024 9:06am INT LABS April 21, 2024 9:25am VIABILITY May 01, 2024 3:4 0pm E ORDER May 02, 2024 6:2 4pm EORDERS May 05, 2024 4:5 6pm DATING May 09, 2024 12: 53pm Reason for Visit Admit Date Recurrent loss March 02 8:55am Incomplete March 02, 2024 8: 55am Ectopic March 13, 2024 1 :11pm Elevated liver enzymes April 21 9:06am Chief Complaint Admit Date EORDER February 28, 2024 5: 55pm LIVER LESION March 02, 2024 7: 00am Follow up HCG March 02, 2024 8: 55am NEEDS ORDER March 09, 2024 1 :23pm ECTOPIC March 10, 2024 3 :01pm Follow-up methotrexate March 13 1:11pm 6 M FU April 21, 2024 9:06am INT LABS April 21, 2024 9:25am VIABILITY May 01, 2024 3:4 0pm E ORDER May 02, 2024 6:2 4pm EORDERS May 05, 2024 4:5 6pm DATING May 09, 2024 12: 53pm PELVIC PAIN, R/O ECTOPIC May 25, 2024 3:04pm NOB LMP 03/21May 29, 2024 8:53 am Reason for Visit Admit Date Recurrent loss March 02 8:55am Incomplete March 02, 2024 8: 55am Ectopic March 13, 2024 1 :11pm Elevated liver enzymes April 21 9:06am BMI 60.0-69.9, adult May 29, 2024 8:5 3am Constipation May 29, 2024 8:53 am Daytime hypersomnia May 29, 2024 8:53 am Early stage of May 29, 2024 8:53am Elevated liver enzymes May 29, 2024 8 :53am Fatigue May 29, 2024 8:53 am Hepatitis May 29, 2024 8:53 am Hirsutism May 29, 2024 8:53 am History of atrial fibrillation May 8:53am History of recurrent miscarriages May 29, 2024 8:53am History of Sandra-en-Y gastric bypass Apri l 2024 8:53am Liver lesion May 29, 2024 8:53 am Obesity affecting May 29 8:53am Pelvic pain affecting pregna ncy in first trimester, antepartum May 29, 2024 8:53am Prediabetes May 29, 2024 8:53 am May 29, 2024 8:53 am Recurrent loss May 29, 2024 8:53am Supervision of high-risk May 29, 2024 8:53am Abdominal pain May 29, 2024 8:53 am Binge-eating disorder, moderate May 8:53am Hypertension May 29, 2024 8:53 am Rectal bleeding May 29, 2024 8:53 am Chief Complaint Admit Date EORDER February 28, 2024 5: 55pm LIVER LESION March 02, 2024 7: 00am Follow up HCG March 02, 2024 8: 55am NEEDS ORDER March 09, 2024 1 :23pm ECTOPIC March 10, 2024 3 :01pm Follow-up methotrexate March 13 1:11pm 6 M FU April 21, 2024 9:06am INT LABS April 21, 2024 9:25am VIABILITY May 01, 2024 3:4 0pm E ORDER May 02, 2024 6:2 4pm EORDERS May 05, 2024 4:5 6pm DATING May 09, 2024 12: 53pm PELVIC PAIN, R/O ECTOPIC May 25, 2024 3:04pm NOB LMP 03/21May 29, 2024 8:53 am miscarriage June 16, 2024 10: 25pm Chief Complaint Admit Date LIVER LESION March 02, 2024 7: 00am Follow up HCG March 02, 2024 8: 55am NEEDS ORDER March 09, 2024 1 :23pm ECTOPIC March 10, 2024 3 :01pm Follow-up methotrexate March 13 1:11pm 6 M FU April 21, 2024 9:06am INT LABS April 21, 2024 9:25am VIABILITY May 01, 2024 3:4 0pm E ORDER May 02, 2024 6:2 4pm EORDERS May 05, 2024 4:5 6pm DATING May 09, 2024 12: 53pm PELVIC PAIN, R/O ECTOPIC May 25, 2024 3:04pm NOB LMP 03/21May 29, 2024 8:53 am miscarriage June 16, 2024 10: 25pm OB, ER follow up, Still bleeding May 242024 8:41am 14wk ob June 27, 2024 2:28pm VAG BLEED. 13 WKS PREG June 27, 2024 11: 00pm Reason for Visit Admit Date Recurrent loss March 02 8:55am Incomplete March 02, 2024 8: 55am Ectopic March 13, 2024 1 :11pm Elevated liver enzymes April 21 9:06am BMI 60.0-69.9, adult May 29, 2024 8:5 3am Constipation May 29, 2024 8:53 am Daytime hypersomnia May 29, 2024 8:53 am Early stage of May 29, 2024 8:53am Elevated liver enzymes May 29, 2024 8 :53am Fatigue May 29, 2024 8:53 am Hepatitis May 29, 2024 8:53 am Hirsutism May 29, 2024 8:53 am History of atrial fibrillation May 8:53am History of recurrent miscarriages May 29, 2024 8:53am History of Sanrda-en-Y gastric bypass Apri l 2024 8:53am Liver lesion May 29, 2024 8:53 am Obesity affecting May 29, 8:53am Pelvic pain affecting pregna ncy in first trimester, antepartum May 29, 2024 8:53am Prediabetes May 29, 2024 8:53 am May 29, 2024 8:53 am Recurrent loss May 29, 2024 8:53am Supervision of high-risk May 29, 2024 8:53am Abdominal pain May 29, 2024 8:53 am Binge-eating disorder, moderate May 8:53am Hypertension May 29, 2024 8:53 am Rectal bleeding May 29, 2024 8:53 am BMI 60.0-69.9, adult June 19, 2024 8: 41am Constipation June 19, 2024 8:4 1am Daytime hypersomnia June 19, 2024 8:4 1am Early stage of June 19 8:41am Elevated liver enzymes June 19, 2024 8:41am Fatigue June 19, 2024 8:4 1am Hepatitis June 19, 2024 8:4 1am Hirsutism June 19, 2024 8:4 1am History of atrial fibrillation May 8:41am History of recurrent miscarriages June 19, 2024 8:41am History of Sandra-en-Y gastric bypass Apri l 2024 8:41am Liver lesion June 19, 2024 8:4 1am Obesity affecting June 19, 2024 8:41am Pelvic pain affecting pregna ncy in first trimester, antepartum June 19, 2024 8:41am Prediabetes June 19, 2024 8:4 1am June 19, 2024 8:4 1am Recurrent loss June 19 8:41am Supervision of high-risk June 19, 2024 8:41am Abdominal pain June 19, 2024 8:4 1am Binge-eating disorder, moderate June 192024 8:41am Hypertension June 19, 2024 8:4 1am Rectal bleeding June 19, 2024 8:4 1am , threatened June 19, 2024 8: 41am BMI 60.0-69.9, adult June 27, 2024 2:28p m Constipation June 27, 2024 2:28pm Daytime hypersomnia June 27, 2024 2:28pm Early stage of June 27, 2024 2 :28pm Elevated liver enzymes June 27, 2024 2:2 8pm Fatigue June 27, 2024 2:28pm Hepatitis June 27, 2024 2:28pm Hirsutism June 27, 2024 2:28pm History of atrial fibrillation June 27, 2024 2:28pm History of recurrent miscarriages June 2:28pm History of Sandra-en-Y gastric bypass June 27, 2024 2:28pm Liver lesion June 27, 2024 2:28pm Obesity affecting June 27 2:28pm Pelvic pain affecting pregna ncy in first trimester, antepartum June 27, 2024 2:28pm Prediabetes June 27, 2024 2:28pm June 27, 2024 2:28pm Recurrent loss June 27, 2024 2 :28pm Supervision of high-risk June [id number] 2:28pm UTI in June 27, 2024 2:28pm Abdominal pain June 27, 2024 2:28pm Binge-eating disorder, moderate June 27, 2024 2:28pm Hypertension June 27, 2024 2:28pm Rectal bleeding June 27, 2024 2:28pm Chief Complaint Admit Date LIVER LESION March 02, 2024 7: 00am Follow up HCG March 02, 2024 8: 55am NEEDS ORDER March 09, 2024 1 :23pm ECTOPIC March 10, 2024 3 :01pm Follow-up methotrexate March 13 1:11pm 6 M FU April 21, 2024 9:06am INT LABS April 21, 2024 9:25am VIABILITY May 01, 2024 3:4 0pm E ORDER May 02, 2024 6:2 4pm EORDERS May 05, 2024 4:5 6pm DATING May 09, 2024 12: 53pm PELVIC PAIN, R/O ECTOPIC May 25, 2024 3:04pm NOB LMP 03/21May 29, 2024 8:53 am miscarriage June 16, 2024 10: 25pm OB, ER follow up, Still bleeding May [id number] 8:41am 14wk ob June 27, 2024 2:28pm VAG BLEED. 13 WKS PREG June 27, 2024 11: 00pm BLEEDING June 28, 2024 9:05am Chief Complaint Admit Date NEEDS ORDER March 09, 2024 1 :23pm ECTOPIC March 10, 2024 3 :01pm Follow-up methotrexate March 13 1:11pm 6 M FU April 21, 2024 9:06am INT LABS April 21, 2024 9:25am VIABILITY May 01, 2024 3:4 0pm E ORDER May 02, 2024 6:2 4pm EORDERS May 05, 2024 4:5 6pm DATING May 09, 2024 12: 53pm PELVIC PAIN, R/O ECTOPIC May 25, 2024 3:04pm NOB LMP 03/21May 29, 2024 8:53 am miscarriage June 16, 2024 10: 25pm OB, ER follow up, Still bleeding May [id number] 8:41am 14wk ob June 27, 2024 2:28pm VAG BLEED. 13 WKS PREG June 27, 2024 11: 00pm BLEEDING June 28, 2024 9:05am BLEEDING June 29, 2024 1:41am 1wk FU *do not shorten July 04, 2024 10 :56am Reason for Visit Admit Date Ectopic March 13, 2024 1 :11pm Elevated liver enzymes April 21 9:06am BMI 60.0-69.9, adult May 29, 2024 8:5 3am Constipation May 29, 2024 8:53 am Daytime hypersomnia May 29, 2024 8:53 am Early stage of May 29, 2024 8:53am Elevated liver enzymes May 29, 2024 8 :53am Fatigue May 29, 2024 8:53 am Hepatitis May 29, 2024 8:53 am Hirsutism May 29, 2024 8:53 am History of atrial fibrillation May 8:53am History of recurrent miscarriages May 29, 2024 8:53am History of Sandra-en-Y gastric bypass Apri l 2024 8:53am Liver lesion May 29, 2024 8:53 am Obesity affecting May 29 8:53am Pelvic pain affecting pregna ncy in first trimester, antepartum May 29, 2024 8:53am Prediabetes May 29, 2024 8:53 am May 29, 2024 8:53 am Recurrent loss May 29, 2024 8:53am Supervision of high-risk May 29, 2024 8:53am Abdominal pain May 29, 2024 8:53 am Binge-eating disorder, moderate May 8:53am Hypertension May 29, 2024 8:53 am Rectal bleeding May 29, 2024 8:53 am BMI 60.0-69.9, adult June 19, 2024 8: 41am Constipation June 19, 2024 8:4 1am Daytime hypersomnia June 19, 2024 8:4 1am Early stage of June 19 8:41am Elevated liver enzymes June 19, 2024 8:41am Fatigue June 19, 2024 8:4 1am Hepatitis June 19, 2024 8:4 1am Hirsutism June 19, 2024 8:4 1am History of atrial fibrillation May 8:41am History of recurrent miscarriages June 19, 2024 8:41am History of Sandra-en-Y gastric bypass Apri l 2024 8:41am Liver lesion June 19, 2024 8:4 1am Obesity affecting June 19, 2024 8:41am Pelvic pain affecting pregna ncy in first trimester, antepartum June 19, 2024 8:41am Prediabetes June 19, 2024 8:4 1am June 19, 2024 8:4 1am Recurrent loss June 19 8:41am Supervision of high-risk June 19, 2024 8:41am Abdominal pain June 19, 2024 8:4 1am Binge-eating disorder, moderate June 192024 8:41am Hypertension June 19, 2024 8:4 1am Rectal bleeding June 19, 2024 8:4 1am , threatened June 19, 2024 8: 41am BMI 60.0-69.9, adult June 27, 2024 2:28p m Constipation June 27, 2024 2:28pm Daytime hypersomnia June 27, 2024 2:28pm Early stage of June 27, 2024 2 :28pm Elevated liver enzymes June 27, 2024 2:2 8pm Fatigue June 27, 2024 2:28pm Hepatitis June 27, 2024 2:28pm Hirsutism June 27, 2024 2:28pm History of atrial fibrillation June 27, 2024 2:28pm History of recurrent miscarriages June 2:28pm History of Sandra-en-Y gastric bypass June 27, 2024 2:28pm Liver lesion June 27, 2024 2:28pm Obesity affecting June 27 2:28pm Pelvic pain affecting pregna ncy in first trimester, antepartum June 27, 2024 2:28pm Prediabetes June 27, 2024 2:28pm June 27, 2024 2:28pm Recurrent loss June 27, 2024 2 :28pm Supervision of high-risk June [id number] 2:28pm UTI in June 27, 2024 2:28pm Abdominal pain June 27, 2024 2:28pm Binge-eating disorder, moderate June 27, 2024 2:28pm Hypertension June 27, 2024 2:28pm Rectal bleeding June 27, 2024 2:28pm Reason for Visit Admit Date Ectopic March 13, 2024 1 :11pm Elevated liver enzymes April 21 9:06am BMI 60.0-69.9, adult May 29, 2024 8:5 3am Constipation May 29, 2024 8:53 am Daytime hypersomnia May 29, 2024 8:53 am Early stage of May 29, 2024 8:53am Elevated liver enzymes May 29, 2024 8 :53am Fatigue May 29, 2024 8:53 am Hepatitis May 29, 2024 8:53 am Hirsutism May 29, 2024 8:53 am History of atrial fibrillation May 8:53am History of recurrent miscarriages May 29, 2024 8:53am History of Sandra-en-Y gastric bypass Apri l 2024 8:53am Liver lesion May 29, 2024 8:53 am Obesity affecting May 29 8:53am Pelvic pain affecting pregna ncy in first trimester, antepartum May 29, 2024 8:53am Prediabetes May 29, 2024 8:53 am May 29, 2024 8:53 am Recurrent loss May 29, 2024 8:53am Supervision of high-risk May 29, 2024 8:53am Abdominal pain May 29, 2024 8:53 am Binge-eating disorder, moderate May 8:53am Hypertension May 29, 2024 8:53 am Rectal bleeding May 29, 2024 8:53 am BMI 60.0-69.9, adult June 19, 2024 8: 41am Constipation June 19, 2024 8:4 1am Daytime hypersomnia June 19, 2024 8:4 1am Early stage of June 19 8:41am Elevated liver enzymes June 19, 2024 8:41am Fatigue June 19, 2024 8:4 1am Hepatitis June 19, 2024 8:4 1am Hirsutism June 19, 2024 8:4 1am History of atrial fibrillation May 8:41am History of recurrent miscarriages June 19, 2024 8:41am History of Sandra-en-Y gastric bypass Apri l 2024 8:41am Liver lesion June 19, 2024 8:4 1am Obesity affecting June 19, 2024 8:41am Pelvic pain affecting pregna ncy in first trimester, antepartum June 19, 2024 8:41am Prediabetes June 19, 2024 8:4 1am June 19, 2024 8:4 1am Recurrent loss June 19 8:41am Supervision of high-risk June 19, 2024 8:41am Abdominal pain June 19, 2024 8:4 1am Binge-eating disorder, moderate June 192024 8:41am Hypertension June 19, 2024 8:4 1am Rectal bleeding June 19, 2024 8:4 1am , threatened June 19, 2024 8: 41am BMI 60.0-69.9, adult June 27, 2024 2:28p m Constipation June 27, 2024 2:28pm Daytime hypersomnia June 27, 2024 2:28pm Early stage of June 27, 2024 2 :28pm Elevated liver enzymes June 27, 2024 2:2 8pm Fatigue June 27, 2024 2:28pm Hepatitis June 27, 2024 2:28pm Hirsutism June 27, 2024 2:28pm History of atrial fibrillation June 27, 2024 2:28pm History of recurrent miscarriages June 2:28pm History of Sandra-en-Y gastric bypass June 27, 2024 2:28pm Liver lesion June 27, 2024 2:28pm Obesity affecting June 27 2:28pm Pelvic pain affecting pregna ncy in first trimester, antepartum June 27, 2024 2:28pm Prediabetes June 27, 2024 2:28pm June 27, 2024 2:28pm Recurrent loss June 27, 2024 2 :28pm Supervision of high-risk June [id number] 2:28pm UTI in June 27, 2024 2:28pm Abdominal pain June 27, 2024 2:28pm Binge-eating disorder, moderate June 27, 2024 2:28pm Hypertension June 27, 2024 2:28pm Rectal bleeding June 27, 2024 2:28pm Cervical shortening affecting July 04, 2024 10:56am Complete July 04, 2024 10:56 am Reason for Referral Specialty Diagnoses / Procedures Referred By Korina gill Referred To Contact Cardiology Diagnoses Paroxysmal atrial fibrillation (HCC) Procedures Transthoracic echocardiogram (TTE) complete with contrast, bubble, strain, and 3D PRN UT ECHO TTHRC R-T 2D W/WOM-MODE COMPL SPEC&COLR D UT TTE W OR WO FOL WCON,Ravi Arevalo MD [address] [place] [id number] Referral ID Status Reason Start Date Expiration Date V isits Requested Visits Authorized [id number] Pending Review 12/22/2022 12/22/2023 1 1 Referral ID Status Reason Start Date Expiration Date Visits Re quested Visits Authorized [id number] Closed 12/22/2022 12/22/2023 1 1 Specialty Diagnoses / Procedures Referred By Korina gill Referred To Contact Diagnoses At high risk for venous thromboembolism (VTE) Miley Moise PA [address] [place] [address] Referral ID Status Reason Start Date Expiration Date Visits Re quested Visits Authorized [id number] Closed 1 1 Specialty Diagnoses / Procedures Referred By Korina gill Referred To Contact Sleep Medicine Diagnoses MOE (obstructive sleep apnea) Procedures Home sleep test Carmen Hirsch PA-C [address] [place] [address] [facility] [address] [place] [address] Referral ID Status Reason Start Date Expiration Date V isits Requested Visits Authorized [id number] Authorized 08/23/2023 08/17/2024 1 1 Additional Source Comments INFORMATION SOURCE (unrecogn ized section and content) DATE CREATED AUTHOR 10/20/2019 [facility] DATE CREATED AUTHOR AUTHOR'S ORGANIZ ATION 01/25/2020 [facility] DATE CREATED AUTHOR AUTHOR'S ORGANIZ ATION 10/26/2023 [facility] ([place]) DATE CREATED AUTHOR AUTHOR'S ORGANIZ ATION 10/31/2023 [facility] DATE CREATED AUTHOR AUTHOR'S ORGANIZ ATION 05/29/2024 [facility] DATE CREATED AUTHOR AUTHOR'S ORGANIZ ATION 07/02/2024 [facility] DATE CREATED AUTHOR AUTHOR'S ORGANIZ ATION 07/25/2024 [facility] DATE CREATED AUTHOR AUTHOR'S ORGANIZ ATION 07/26/2024 [facility] Goals (unrecognized section and content) Goals may be documented in a n alternate sectionGoals may be documented in an alternate sectionGoals may be documented in an alternate sectionGoals may be documented in an alternate sectionGoals may be documented in an alternate sectionGoals may be documented in an alternate sectionGoals may be documented in an alternate sectionGoals may be documented in an alternate sectionGoals may be documented in an alternate sectionGoals may be documented in an alternate sectionGoals may be documented in an alternate sectionGoals may be documented in an alternate sectionGoals may be documented in an alternate sectionGoals may be documented in an alternate sectionGoals may be documented in an alternate sectionGoals may be documented in an alternate sectionGoals may be documented in an alternate sectionGoals may be documented in an alternate sectionGoals may be documented in an alternate sectionGoals may be documented in an alternate sectionGoals may be documented in an alternate sectionGoals may be documented in an alternate sectionGoals may be documented in an alternate sectionGoals may be documented in an alternate sectionGoals may be documented in an alternate sectionGoals may be documented in an alternate section Care Teams (unrecognized sec tion and content) Team Status: Active Member Role Status Dates [facility] PA, PA-C Primary Care Provider Active Team Status: Inactive Member Role Status [facility] PA, PA-C Primary Care Provider, Referri ng Provider Active Lidya Booker SPONGE CLIPPER, SPONGE CLIPPER-C Attending Provider Active Team Status: Inactive Member Role Status Dates [facility] PA, PA-C Primary Care Provider Active Lidya Booker SPONGE CLIPPER, SPONGE CLIPPER-C Attending Provider Active Team Status: Inactive Member Role Status [facility] PA, PA-C Primary Care Provider Active Lidya Booker SPONGE CLIPPER, SPONGE CLIPPER-C Attending Provider, Referring Provider Active Team Status: Active Member Role Status [facility] PA, PA-C Primary Care Provider Active Lidya Booker SPONGE CLIPPER, SPONGE CLIPPER-C Attending Provider Active Team Status: Active Member Role Status [facility] PA, PA-C Primary Care Provider Active Lidya Booker SPONGE CLIPPER, SPONGE CLIPPER-C Attending Provider, Referring Provider Active Team Status: Inactive Member Role Status [facility] PA, PA-C Primary Care Provider, Referri ng Provider Active Dr. Silviano Daley MD Attending Provider Active Team Status: Inactive Member Role Status [facility] PA, PA-C Primary Care Provider, Referri ng Provider Active Stephany Velez SPONGE CLIPPER, SPONGE CLIPPER-C Attending Provider Active Team Status: Inactive Member Role Status [facility] PA, PA-C Primary Care Provider Active Stephany Velez NP, SPONGE CLIPPER-C Attending Provider, Referrin g Provider Active Dr. Silviano Daley MD Other Provider Active Team Status: Active Member Role Status Dates [facility] PA, PA-C Primary Care Provider Active Stephany Velez SPONGE CLIPPER, SPONGE CLIPPER-C Attending Provider Active Team Status: Inactive Member Role Status Dates [facility] PA, PA-C Primary Care Provider Active Stephany Velez SPONGE CLIPPER, SPONGE CLIPPER-C Attending Provider Active Team Status: Inactive Member Role Status [facility] PA, PA-C Primary Care Provider Active Dr. Silviano Daley MD Attending Provider Active Team Status: Active Member Role Status [facility] PA, PA-C Primary Care Provider, Referri ng Provider Active Dr. Trey Malone DO Attending Provider, Other Prov ider Active Team Status: Inactive Member Role Status Dates [facility] PA, PA-C Primary Care Provider, Referri ng Provider Active Dr. Trey Malone , Attending Provider Active Team Status: Active Member Role Status [facility] PA, PA-C Primary Care Provider Active Dr. Silviano Daley MD Attending Provider, Referr ing Provider Active Team Status: Inactive Member Role Status [facility] PA, PA-C Primary Care Provider, Referri ng Provider Active Dr. Peggy Flynn DO Attending Provider Activ e Team Status: Inactive Member Role Status [facility] PA, PA-C Primary Care Provider Active Dr. Silviano Daley MD Attending Provider, Referr ing Provider Active Dry Chain Offbearer Relationship Specialty Start Date End Date ClatoniaZakiaXenia [address] [place] [address] PCP - General Family Medicine 09/07/22 Silviano Daley [address] [place] [address] Obstetrics and Gynecology 09/10/22 Dry Chain Offbearer Relationship Specialty Start Date End Date ClatoniaRuchily [address] [place] [phone] PCP - General Family Medicine 09/07/22 Silviano Daley [address] [place] [address] Obstetrics and Gynecology 09/10/22 Memo Campbell MD [address] [place], [place] [id number] Surgeon General Surgery 09/30/22 Dry Chain Offbearer Relationship Specialty Start Date End Date X[address] [place] [phone] PCP - General Family Medicine 09/07/22 Silviano Daley [address] [place] [address] Obstetrics and Gynecology 09/10/22 Memo Campbell MD [address] [place] [address] [address] [place] [address] Surgeon General Surgery 09/30/22 Dry Chain Offbearer Relationship Specialty Start Date End Date [address] [place] [address] PCP - General Family Medicine 09/07/22 Silviano Daley [address] [place] [address] Obstetrics and Gynecology 09/10/22 Memo Campbell MD [address] [place] [address] Surgeon General Surgery 09/30/22 Team Status: Inactive Member Role Status Dates XeniaSUZANNA Rocha-Manoj Primary Care Provider, Referri ng Provider Active Beverley King SPONGE CLIPPER, SPONGE CLIPPER-C Attending Provider Active Team Status: Inactive Member Role Status Dates XeniaSUZANNA Laguerre-Manoj Primary Care Provider Active Beverley King SPONGE CLIPPER, SPONGE CLIPPER-C Attending Provider, Referrin g Provider Active Dry Chain Offbearer Relationship Specialty Start Date End Date [address] [place] [address] PCP - General Family Medicine 09/07/22 Silviano Daley [address] [place] [address] Obstetrics and Gynecology 09/10/22 Memo Campbell MD [address] [place] [address] Surgeon General Surgery 09/30/22 Dry Chain Offbearer Relationship Specialty Start Date End Date [address] [place] [address] PCP - General Family Medicine 09/07/22 Silviano Daley [address] [place] [address] Obstetrics and Gynecology 09/10/22 Memo Campbell MD [address] [place] [address] Surgeon General Surgery 09/30/22 Dry Chain Offbearer Relationship Specialty Start Date End Date [address] [place] [address] PCP - General Family Medicine 09/07/22 Silviano Daley [address] [place] [address] Obstetrics and Gynecology 09/10/22 Memo Campbell MD [address] [place] [address] Surgeon General Surgery 09/30/22 Dry Chain Offbearer Relationship Specialty Start Date End Date DomingoXenia [address] [place] [address] PCP - General Family Medicine 09/07/22 Silviano Daley [address] [place] [address] Obstetrics and Gynecology 09/10/22 Memo Campbell MD [address] [place] [address] [address] [place] [address] Surgeon General Surgery 09/30/22 Dry Chain Offbearer Relationship Specialty Start Date End Date [address] [place] [phone] PCP - General Family Medicine 09/07/22 Silviano aDley [address] [place] [address] Obstetrics and Gynecology 09/10/22 Memo Campbell MD [address] [place] [address] [address] [place] [address] Surgeon General Surgery 09/30/22 Dry Chain Offbearer Relationship Specialty Start Date End Date [address] [place] [address] PCP - General Family Medicine 09/07/22 Silviano Daley [address] [place] [address] Obstetrics and Gynecology 09/10/22 Memo Campbell MD [address] [place] [address] Surgeon General Surgery 09/30/22 Dry Chain Offbearer Relationship Specialty Start Date End Date [address] [place] [address] PCP - General Family Medicine 09/07/22 Silviano Daley [address] [place] [address] Obstetrics and Gynecology 09/10/22 Memo Campbell MD [address] [place], [place] [address] Surgeon General Surgery 09/30/22 Dry Chain Offbearer Relationship Specialty Start Date End Date [address] [place] [phone] PCP - General Family Medicine 09/07/22 Silviano Daley [address] [place] [address] Obstetrics and Gynecology 09/10/22 Memo Campbell MD [address] [place] [address] Surgeon General Surgery 09/30/22 Dry Chain Offbearer Relationship Specialty Start Date End Date [address] [place] [phone] PCP - General Family Medicine 09/07/22 Silviano Daley [address] [place] [address] Obstetrics and Gynecology 09/10/22 Memo Campbell MD [address] [place] [address] [address] [place] [address] Surgeon General Surgery 09/30/22 Dry Chain Offbearer Relationship Specialty Start Date End Date [address] [place] [phone] PCP - General Family Medicine 09/07/22 Silviano Daley [address] [place] [address] Obstetrics and Gynecology 09/10/22 Memo Campbell MD [address] [place] [address] [address] [place] [address] Surgeon General Surgery 09/30/22 Dry Chain Offbearer Relationship Specialty Start Date End Date [address] [place] [phone] PCP - General Family Medicine 09/07/22 Silviano Daley [address] [place] [address] Obstetrics and Gynecology 09/10/22 Memo Campbell MD [address] [place] [address] [address] [place] [address] Surgeon General Surgery 09/30/22 Dry Chain Offbearer Relationship Specialty Start Date End Date [address] [place] [phone] PCP - General Family Medicine 09/07/22 Silviano Daley [address] [place] [address] Obstetrics and Gynecology 09/10/22 Memo Campbell MD [address] [place] [address] [address] [place] [address] Surgeon General Surgery 09/30/22 Dry Chain Offbearer Relationship Specialty Start Date End Date [address] [place] [address] PCP - General Family Medicine 09/07/22 Silviano Daley [address] [place] [address] Obstetrics and Gynecology 09/10/22 Memo Campbell MD [address] [place] [address] [address] [place] [address] Surgeon General Surgery 09/30/22 Zully Anton, RN Registered Nurse Bariatrics 03/29/23 Dry Chain Offbearer Relationship Specialty Start Date End Date [address] [place] [phone] PCP - General Family Medicine 09/07/22 Silviano Daley [address] [place] [address] Obstetrics and Gynecology 09/10/22 Memo Campbell MD [address] [place] [address] [address] [place], [place] [address] Surgeon General Surgery 09/30/22 Zully Anton, RN Registered Nurse Bariatrics 03/29/23 Dry Chain Offbearer Relationship Specialty Start Date End Date [address] [place] [phone] PCP - General Family Medicine 09/07/22 Silviano Daley [address] [place] [address] Obstetrics and Gynecology 09/10/22 Memo Campbell MD [address] [place] [address] [address] [place] [address] Surgeon General Surgery 09/30/22 Zully Anton, RN Registered Nurse Bariatrics 03/29/23 Dry Chain Offbearer Relationship Specialty Start Date End Date ClatoniaXenia [address] [place] [address] PCP - General Family Medicine 09/07/22 Silviano Daley [address] [place] [address] Obstetrics and Gynecology 09/10/22 Memo Campbell MD [address] [place] [address] [address] [place] [address] Surgeon General Surgery 09/30/22 Zully Anton, RN Registered Nurse Bariatrics 03/29/23 Dry Chain Offbearer Relationship Specialty Start Date End Date [address] [place] [phone] PCP - General Family Medicine 09/07/22 Silviano Daley [address] [place] [address] Obstetrics and Gynecology 09/10/22 Memo Campbell MD [address] [place] [address] [address] [place] [address] Surgeon General Surgery 09/30/22 Zully Anton RN Registered Nurse Bariatrics 03/29/23 Dry Chain Offbearer Relationship Specialty Start Date End Date [address] [place] [phone] PCP - General Family Medicine 09/07/22 Silviano Daley [address] [place] [address] Obstetrics and Gynecology 09/10/22 Memo Campbell MD [address] [place] [address] [address] [place] [address] Surgeon General Surgery 09/30/22 Zully Anton RN Registered Nurse Bariatrics 03/29/23 Dry Chain Offbearer Relationship Specialty Start Date End Date Xenia [address] [place] [address] [place] [address]89[address] PCP - General Family Medicine 09/07/22 Silviano Daley [address] [place] [address] Obstetrics and Gynecology 09/10/22 Memo Campbell MD [address] [place] [address] [address] [place] [address] Surgeon General Surgery 09/30/22 Zully Anton RN Registered Nurse Bariatrics 03/29/23 Dry Chain Offbearer Relationship Specialty Start Date End Date [address] [place] [address] PCP - General Family Medicine 09/07/22 Silviano Daley [address] [place] [address] Obstetrics and Gynecology 09/10/22 Memo Campbell MD [address] [place] [address] Surgeon General Surgery 09/30/22 Zully Anton, RN Registered Nurse Bariatrics 03/29/23 Dry Chain Offbearer Relationship Specialty Start Date End Date [address] [place] [address] PCP - General Family Medicine 09/07/22 Silviano Daley [address] [place] [address] Obstetrics and Gynecology 09/10/22 Memo Campbell MD [address] [place] [address] Surgeon General Surgery 09/30/22 Zully Anton, RN Registered Nurse Bariatrics 03/29/23 Dry Chain Offbearer Relationship Specialty Start Date End Date Domingo Xenia [address] [place] [phone] PCP - General Family Medicine 09/07/22 Silviano Daley [address] [place] [address] Obstetrics and Gynecology 09/10/22 Memo Campbell MD [address] [place] [address] Surgeon General Surgery 09/30/22 Zully Anton RN Registered Nurse Bariatrics 03/29/23 Dry Chain Offbearer Relationship Specialty Start Date End Date [address] [place] [address]89[address] PCP - General Family Medicine 09/07/22 Silviano Daley [address] [place] [address] Obstetrics and Gynecology 09/10/22 Memo Campbell MD [address] [place] [address] Surgeon General Surgery 09/30/22 Zully Anton RN Registered Nurse Bariatrics 03/29/23 Dry Chain Offbearer Relationship Specialty Start Date End Date [address] [place] [phone] PCP - General Family Medicine 09/07/22 Silviano Daley [address] [place] [address] Obstetrics and Gynecology 09/10/22 Memo Campbell MD [address] [place] [address] Surgeon General Surgery 09/30/22 Zully Anton RN Registered Nurse Bariatrics 03/29/23 Eliazar Abreu MD [address] [place] [address] Consulting Physician Internal Medicine Cardiovascular Disease 05/27/23 Dry Chain Offbearer Relationship Specialty Start Date End Date [address] [place] [address] PCP - General Family Medicine 09/07/22 Silviano Daley [address] [place] [address] Obstetrics and Gynecology 09/10/22 Memo Campbell MD [address] [place], [place] [address] Surgeon General Surgery 09/30/22 Zully Anton, RN Registered Nurse Bariatrics 03/29/23 Eliazar Abreu MD [address] [place], [place] [phone] Consulting Physician Internal Medicine Cardiovascular Disease 05/27/23 Dry Chain Offbearer Relationship Specialty Start Date End Date [address] [place] [address] PCP - General Family Medicine 09/07/22 Silviano Daley [address] [place] [address] Obstetrics and Gynecology 09/10/22 Memo Campbell MD [address] [place], [place] [address] Surgeon General Surgery 09/30/22 Zully Anton, RN Registered Nurse Bariatrics 03/29/23 Eliazar Abreu MD [address] [place] [address] Consulting Physician Internal Medicine Cardiovascular Disease 05/27/23 Dry Chain Offbearer Relationship Specialty Start Date End Date [address] [place] [address] PCP - General Family Medicine 09/07/22 Silviano Daley [address] [place] [address] Obstetrics and Gynecology 09/10/22 Memo Campbell MD [address] [place], [place] [address] Surgeon General Surgery 09/30/22 Zully Anton, RN Registered Nurse Bariatrics 03/29/23 Eliazar Abreu MD [address] [place], [place] [phone] Consulting Physician Internal Medicine Cardiovascular Disease 05/27/23 Dry Chain Offbearer Relationship Specialty Start Date End Date [address] [place] [address] PCP - General Family Medicine 09/07/22 Silviano Daley [address] [place] [address] Obstetrics and Gynecology 09/10/22 Memo Campbell MD [address] [place], [place] [address] Surgeon General Surgery 09/30/22 Zully Anton, RN Registered Nurse Bariatrics 03/29/23 Eliazar Abreu MD [address] [place] [address] Consulting Physician Internal Medicine Cardiovascular Disease 05/27/23 Dry Chain Offbearer Relationship Specialty Start Date End Date [address] [place] [phone] PCP - General Family Medicine 09/07/22 Silviano Daley [address] [facility] 3 [place] [address] Obstetrics and Gynecology 09/10/22 Memo Campbell MD [address] [place], [place] [address] Surgeon General Surgery 09/30/22 Zully Anton, RN Registered Nurse Bariatrics 03/29/23 Eliazar Abreu MD [address] [place], [place] [phone] Consulting Physician Internal Medicine Cardiovascular Disease 05/27/23 Dry Chain Offbearer Relationship Specialty Start Date End Date [address] [place] [address] PCP - General Family Medicine 09/07/22 Silviano Daley [address] [facility] 3 [place] [address] Obstetrics and Gynecology 09/10/22 Memo Campbell MD [address] [place] [address] Surgeon General Surgery 09/30/22 Zully Anton, RN Registered Nurse Bariatrics 03/29/23 Eliazar Abreu MD [address] [place] [address] Consulting Physician Internal Medicine Cardiovascular Disease 05/27/23 Dry Chain Offbearer Relationship Specialty Start Date End Date Zakia Laneberly [address] [place] [address] PCP - General Family Medicine 09/07/22 Silviano Daley [address] [facility] [place] [address] Obstetrics and Gynecology 09/10/22 Memo Campbell MD [address] [place], [place] [address] Surgeon General Surgery 09/30/22 Zully Anton, RN Registered Nurse Bariatrics 03/29/23 Eliazar Abreu MD [address] [place], [place] [phone] Consulting Physician Internal Medicine Cardiovascular Disease 05/27/23 Dry Chain Offbearer Relationship Specialty Start Date End Date [address] [place] [address] PCP - General Family Medicine 09/07/22 Silviano Daley [address] [facility] 3 [place] [address] Obstetrics and Gynecology 09/10/22 Memo Campbell MD [address] [place] [address] Surgeon General Surgery 09/30/22 Zully Anton, RN Registered Nurse Bariatrics 03/29/23 Eliazar bAreu MD [address] [place] [address] Consulting Physician Internal Medicine Cardiovascular Disease 05/27/23 Dry Chain Offbearer Relationship Specialty Start Date End Date [address] [place] [address] PCP - General Family Medicine 09/07/22 Silviano Daley [address] [place] [address]39[address]42 Obstetrics and Gynecology 09/10/22 Memo Campbell MD [address] [place], [place] [address] Surgeon General Surgery 09/30/22 Zully Anton, RN Registered Nurse Bariatrics 03/29/23 Eliazar Abreu MD [address] [place], [place] [phone] Consulting Physician Internal Medicine Cardiovascular Disease 05/27/23 Dry Chain Offbearer Relationship Specialty Start Date End Date [address] [place] [address] PCP - General Family Medicine 09/07/22 Silviano Daley [address] [place] [address]42 Obstetrics and Gynecology 09/10/22 Memo Campbell MD [address] [place] [address] Surgeon General Surgery 09/30/22 Zully Anton, RN Registered Nurse Bariatrics 03/29/23 Eliazar Abreu MD [address] [place] [address] Consulting Physician Internal Medicine Cardiovascular Disease 05/27/23 Dry Chain Offbearer Relationship Specialty Start Date End Date [address] [place] [address] PCP - General Family Medicine 09/07/22 Silviano Daley [address] [facility] 3 [place] [address] Obstetrics and Gynecology 09/10/22 Memo Campbell MD [address] [place] [address] Surgeon General Surgery 09/30/22 Zully Anton, RN Registered Nurse Bariatrics 03/29/23 Eliazar Abreu MD [address] [place] [address] Consulting Physician Internal Medicine Cardiovascular Disease 05/27/23 Dry Chain Offbearer Relationship Specialty Start Date End Date [address] [place] [address] PCP - General Family Medicine 09/07/22 Silviano Daley [address] [facility] 3 [place] [address] Obstetrics and Gynecology 09/10/22 Memo Campbell MD [address] [place] [address] Surgeon General Surgery 09/30/22 Zully Anton, RN Registered Nurse Bariatrics 03/29/23 Eliazar Abreu MD [address] [place] [address] Consulting Physician Internal Medicine Cardiovascular Disease 05/27/23 Dry Chain Offbearer Relationship Specialty Start Date End Date [address] [place] [address] PCP - General Family Medicine 09/07/22 Silviano Daley [address] [facility] 3 [place] [address] Obstetrics and Gynecology 09/10/22 Memo Campbell MD [address] [place] [address] Surgeon General Surgery 09/30/22 Zully Anton, RN Registered Nurse Bariatrics 03/29/23 Eliazar Abreu MD [address] [place] [address] Consulting Physician Internal Medicine Cardiovascular Disease 05/27/23 Dry Chain Offbearer Relationship Specialty Start Date End Date [address] [place] [address] PCP - General Family Medicine 09/07/22 Silviano Daley [address] [facility] 3 [place] [address] Obstetrics and Gynecology 09/10/22 Memo Campbell MD [address] [place] [address] Surgeon General Surgery 09/30/22 Zully Anton, RN Registered Nurse Bariatrics 03/29/23 Eliazar Abreu MD [address] [place] [address] Consulting Physician Internal Medicine Cardiovascular Disease 05/27/23 Dry Chain Offbearer Relationship Specialty Start Date End Date [address] [place] [address] PCP - General Family Medicine 09/07/22 Silviano Daley [address] [facility] 3 [place] [address] Obstetrics and Gynecology 09/10/22 Memo Campbell MD [address] [place] [address] Surgeon General Surgery 09/30/22 Zully Anton, RN Registered Nurse Bariatrics 03/29/23 Eliazar Abreu MD [address] [place] [address] Consulting Physician Internal Medicine Cardiovascular Disease 05/27/23 Dry Chain Offbearer Relationship Specialty Start Date End Date [address] [place] [address]8949 PCP - General Family Medicine 09/07/22 Silviano Daley [address] [facility] [address] [place] [address] Obstetrics and Gynecology 09/10/22 Memo Campbell MD [address] [place] [address] Surgeon General Surgery 09/30/22 Zully Anton, RN Registered Nurse Bariatrics 03/29/23 Eliazar Abreu MD [address] [place] [address] Consulting Physician Internal Medicine Cardiovascular Disease 05/27/23 Dry Chain Offbearer Relationship Specialty Start Date End Date [address] [place] [address] PCP - General Family Medicine 09/07/22 Silviano Daley [address] [place] [address] Obstetrics and Gynecology 09/10/22 Memo Campbell MD [address] [place], [place] [address] Surgeon General Surgery 09/30/22 Zully Anton, RN Registered Nurse Bariatrics 03/29/23 Eliazar Abreu MD [address] [place], [place] [phone] Consulting Physician Internal Medicine Cardiovascular Disease 05/27/23 Dry Chain Offbearer Relationship Specialty Start Date End Date [address] [place] [address]8949 PCP - General Family Medicine 09/07/22 Silviano Daley [address] [place] [address] Obstetrics and Gynecology 09/10/22 Memo Campbell MD [address] [place] [address] Surgeon General Surgery 09/30/22 Zully Anton, RN Registered Nurse Bariatrics 03/29/23 Eliazar Abreu MD [address] [place], [place] [phone] Consulting Physician Internal Medicine Cardiovascular Disease 05/27/23 Dry Chain Offbearer Relationship Specialty Start Date End Date [address] [place] [phone] PCP - General Family Medicine 09/07/22 Silviano Daley [address] [facility] 3 [place] [phone] Obstetrics and Gynecology 09/10/22 Memo Campbell MD [address] [place] [address] [address] [place], [place] [id number] Surgeon General Surgery 09/30/22 Zully Anton, RN Registered Nurse Bariatrics 03/29/23 Eliazar Abreu MD [address] [place] [address] [address] [place], [place] [phone] Consulting Physician Internal Medicine Cardiovascular Disease 05/27/23 Dry Chain Offbearer Relationship Specialty Start Date End Date Xenia Lane [address] [place] [address] [place] [phone] PCP - General Family Medicine 09/07/22 Silviano Daley [address] [facility] 3 [place] [phone] Obstetrics and Gynecology 09/10/22 Memo Campbell MD [address] [place] [address] [address] [place], [place] [phone] Surgeon General Surgery 09/30/22 Zully Anton, RN Registered Nurse Bariatrics 03/29/23 Eliazar Abreu MD [address] [place] [address] [address] [place], [place] [phone] Consulting Physician Internal Medicine Cardiovascular Disease 05/27/23 Team Status: Inactive Member Role Status Dates Xenia BRISENO, PA-C Primary Care Provider Active Start: February 28, 2024 End: February 28, 2024 Dr. Silviano Daley MD Attending Provider Active Start: February 28, 2024 End: February 28, 2024 Dr. Silviano Daley MD Referring Provider Active Start: February 28, 2024 End: February 28, 2024 Team Status: Inactive Member Role Status Dates Xenia Lane PA, PA-C Primary Care Provider Active Start: March 01, 2024 End: March 01, 2024 Dr. Silviano Daley MD Attending Provider Active Start: March 01, 2024 End: March 01, 2024 Dr. Silviano Daley MD Referring Provider Active Start: March 01, 2024 End: March 01, 2024 Team Status: Inactive Member Role Status Dates Xenia Lane PA, PA-C Primary Care Provider Active Start: March 02, 2024 End: March 02, 2024 SUZANNA Chavez Attending Provider Active Start: March 02, 2024 End: March 02, 2024 SUZANNA Chavez Referring Provider Active Start: March 02, 2024 End: March 02, 2024 Team Status: Inactive Member Role Status Dates Xenia Lane PA, PA-C Primary Care Provider Active Start: March 02, 2024 End: March 02, [address] PA, PA-C Referring Provider Active Start: March 02, 2024 End: March 02, 2024 Dr. Peggy Flynn DO Attending Provider Activ e Start: March 02, 2024 End: March 02, 2024 Team Status: Inactive Member Role Status Dates Xenia Lane PA, PA-C Primary Care Provider Active Start: March 03, 2024 End: March 03, 2024 Dr. Peggy Flynn DO Attending Provider Activ e Start: March 03, 2024 End: March 03, 2024 Dr. Peggy Flynn DO Referring Provider Activ e Start: March 03, 2024 End: March 03, 2024 Team Status: Inactive Member Role Status Dates Xenia Lane PA, PA-C Primary Care Provider Active Start: March 09, 2024 End: March 09, 2024 Dr. Peggy Flynn DO Attending Provider Activ e Start: March 09, 2024 End: March 09, 2024 Dr. Peggy Flynn DO Referring Provider Activ e Start: March 09, 2024 End: March 09, 2024 Team Status: Inactive Member Role Status Dates Xenia Lane PA, PA-C Primary Care Provider Active Start: March 10, 2024 End: March 10, 2024 Dr. Fernando Al , Attending Provider Active Start: March 10, 2024 End: March 10, 2024 Dr. Fernando Al , Emergency Provider Active Start: March 10, 2024 End: March 10, 2024 Team Status: Inactive Member Role Status Dates Xenia Lane PA, PA-C Primary Care Provider Active Start: March 13, 2024 End: March 13, 2024 Dr. Peggy Flynn , Attending Provider Activ e Start: March 13, 2024 End: March 13, 2024 Dr. Peggy Flynn , DO Referring Provider Activ e Start: March 13, 2024 End: March 13, 2024 Team Status: Inactive Member Role Status Dates Xenia Lane PA, PA-C Primary Care Provider Active Start: March 13, 2024 End: March 13, [address] PA, PA-C Referring Provider Active Start: March 13, 2024 End: March 13, 2024 Dr. Peggy Flynn , Attending Provider Activ e Start: March 13, 2024 End: March 13, 2024 Team Status: Active Member Role Status Dates Xenia Lane PA, PA-C Primary Care Provider Active Start: April 18, 2024 Dr. Peggy Flynn DO Attending Provider Activ e Start: April 18, 2024 Dr. Peggy Flynn DO Referring Provider Activ e Start: April 18, 2024 Team Status: Inactive Member Role Status Dates Xenia Lane PA, PA-C Primary Care Provider Active Start: April 20, 2024 End: April 20, 2024 Dr. Peggy Flynn DO Attending Provider Activ e Start: April 20, 2024 End: April 20, 2024 Dr. Peggy Flynn , Referring Provider Activ e Start: April 20, 2024 End: April 20, 2024 Team Status: Inactive Member Role Status Dates Laurence Mccrary , PA Attending Provider Active Start: April 21, 2024 End: April 21, [address] PA, PA-C Primary Care Provider Active Start: April 21, 2024 End: April 21, [address] PA, PA-C Referring Provider Active Start: April 21, 2024 End: April 21, 2024 Team Status: Active Member Role Status Dates Xenia Lane PA, PA-C Primary Care Provider Active Start: April 21, 2024 SUZANNA Chavez Attending Provider Active Start: April 21, 2024 SUZANNA Chavez Referring Provider Active Start: April 21, 2024 Team Status: Active Member Role Status Dates Xenia Lane PA, PA-C Primary Care Provider Active Start: May 01, 2024 Lidya Booker SPONGE CLIPPER, SPONGE CLIPPER-C Attending Provider Active Start: May 01, 2024 Lidya Booker SPONGE CLIPPER, SPONGE CLIPPER-C Referring Provider Active Start: May 01, 2024 Team Status: Active Member Role Status Dates Xenia Lane PA, PA-C Primary Care Provider Active Start: May 02, 2024 Dr. Peggy Flynn , DO Attending Provider Activ e Start: May 02, 2024 Dr. Peggy Flynn , Referring Provider Activ e Start: May 02, 2024 Team Status: Inactive Member Role Status Dates Xenia Lane PA, PA-C Primary Care Provider Active Start: April 18, 2024 End: April 18, 2024 Dr. Peggy Flynn , Attending Provider Activ e Start: April 18, 2024 End: April 18, 2024 Dr. Peggy Flynn , Referring Provider Activ e Start: April 18, 2024 End: April 18, 2024 Team Status: Inactive Member Role Status Dates Xenia Lane PA, PA-C Primary Care Provider Active Start: April 21, 2024 End: April 21, 2024 SUZANNA Chavez Attending Provider Active Start: April 21, 2024 End: April 21, 2024 SUZANNA Chavez Referring Provider Active Start: April 21, 2024 End: April 21, 2024 Team Status: Inactive Member Role Status Dates Xenia Lane PA, PA-C Primary Care Provider Active Start: May 01, 2024 End: May 01, 2024 Lidya Booker SPONGE CLIPPER, SPONGE CLIPPER-C Attending Provider Active Start: May 01, 2024 End: May 01, 2024 Lidya Booker SPONGE CLIPPER, SPONGE CLIPPER-C Referring Provider Active Start: May 01, 2024 End: May 01, 2024 Team Status: Active Member Role Status Dates Xenia Lane PA, PA-C Primary Care Provider Active Start: May 05, 2024 Dr. Peggy Flynn , DO Attending Provider Activ e Start: May 05, 2024 Dr. Peggy Flynn DO Referring Provider Activ e Start: May 05, 2024 Team Status: Active Member Role Status Dates Xenia Lane PA, PA-C Primary Care Provider Active Start: May 09, 2024 Dr. Peggy Flynn , DO Attending Provider Activ e Start: May 09, 2024 Dr. Peggy Flynn DO Referring Provider Activ e Start: May 09, 2024 Team Status: Inactive Member Role Status Dates Xenia Lane PA, PA-C Primary Care Provider Active Start: May 05, 2024 End: May 05, 2024 Dr. Peggy Flynn DO Attending Provider Activ e Start: May 05, 2024 End: May 05, 2024 Dr. Peggy Flynn DO Referring Provider Activ e Start: May 05, 2024 End: May 05, 2024 Team Status: Inactive Member Role Status Dates Xenia Lane PA, PA-C Primary Care Provider Active Start: May 02, 2024 End: May 02, 2024 Dr. Peggy Flynn DO Attending Provider Activ e Start: May 02, 2024 End: May 02, 2024 Dr. Peggy Flynn DO Referring Provider Activ e Start: May 02, 2024 End: May 02, 2024 Team Status: Inactive Member Role Status Dates Xenia Lane PA, PA-C Primary Care Provider Active Start: May 09, 2024 End: May 09, 2024 Dr. Peggy Flynn DO Attending Provider Activ e Start: May 09, 2024 End: May 09, 2024 Dr. Peggy Flynn DO Referring Provider Activ e Start: May 09, 2024 End: May 09, 2024 Dry Chain Offbearer Relationship Specialty Start Date End Date Xenia Lane [address] [place] [address] [place] [address] PCP - General Family Medicine 09/07/22 Silviano Daley [address] [place] [address] Obstetrics and Gynecology 09/10/22 Memo Campbell MD [address] [facility] [address] [place] [address] Surgeon General Surgery 09/30/22 Zully Anton RN Registered Nurse Bariatrics 03/29/23 Eliazar Abreu MD [address] [place] [address] [address] [place] [address] Consulting Physician Internal Medicine Cardiovascular Disease 05/27/23 Team Status: Inactive Member Role Status Dates Xenia Lane PA, PA-C Primary Care Provider Active Start: May 25, 2024 End: May 25, 2024 Dr. Peggy Flynn DO Attending Provider Activ e Start: May 25, 2024 End: May 25, 2024 Dr. Peggy Flynn DO Referring Provider Activ e Start: May 25, 2024 End: May 25, 2024 Team Status: Inactive Member Role Status Dates Xenia Lane PA, PA-C Primary Care Provider Active Start: May 29, 2024 End: May 29, [address] PA, PA-C Referring Provider Active Start: May 29, 2024 End: May 29, 2024 Dr. Peggy Flynn DO Attending Provider Activ e Start: May 29, 2024 End: May 29, 2024 Team Status: Active Member Role Status Dates Xenia Lane PA, PA-C Primary Care Provider Active Start: May 29, 2024 Dr. Peggy Flynn DO Attending Provider Activ e Start: May 29, 2024 Team Status: Inactive Member Role Status Dates Xenia Lane PA, PA-C Primary Care Provider Active Start: May 29, 2024 End: May 29, 2024 Dr. Peggy Flynn DO Attending Provider Activ e Start: May 29, 2024 End: May 29, 2024 Team Status: Inactive Member Role Status Dates Xenia Lane PA, PA-C Primary Care Provider Active Start: June 16, 2024 End: June 17, 2024 Dr. Jay Liu MD Emergency Provider Active Start: June 16, 2024 End: June 17, 2024 Team Status: Inactive Member Role Status Dates Xenia Lane PA, PA-C Primary Care Provider Active Start: June 16, 2024 End: June 17, 2024 Dr. Jay Liu MD Attending Provider Active Start: June 16, 2024 End: June 17, 2024 Dr. Jay Liu MD Emergency Provider Active Start: June 16, 2024 End: June 17, 2024 Team Status: Inactive Member Role Status Dates Xenia Domingo PA, PA-C Primary Care Provider Active Start: June 19, 2024 End: June 19, [address] PA, PA-C Referring Provider Active Start: June 19, 2024 End: June 19, 2024 Dr. Peggy Flynn DO Attending Provider Activ e Start: June 19, 2024 End: June 19, 2024 Team Status: Inactive Member Role Status Dates Xenia Lane PA, PA-C Primary Care Provider Active Start: June 27, 2024 End: June 27, 2024 Xenia Clatonia PA, PA-C Referring Provider Active Start: June 27, 2024 End: June 27, 2024 Christy Whitten CNM Attending Provider Active S tart: June 27, 2024 End: June 27, 2024 Team Status: Inactive Member Role Status Dates Xenia Lane PA, PA-C Primary Care Provider Active Start: June 27, 2024 End: June 28, 2024 Dr. Pancho Gagnon DO Emergency Provider Active Start: June 27, 2024 End: June 28, 2024 Team Status: Inactive Member Role Status Dates Xenia Lane PA, PA-C Primary Care Provider Active Start: June 28, 2024 End: June 28, 2024 Dr. Silviano Daley MD Attending Provider Active Start: June 28, 2024 End: June 28, 2024 Dr. Silviano Daley MD Referring Provider Active Start: June 28, 2024 End: June 28, 2024 Team Status: Active Member Role Status Dates Xenia Lane PA, PA-C Primary Care Provider Active Start: June 29, 2024 Dr. Silviano Daley MD Attending Provider Active Start: June 29, 2024 Dr. Silviano Daley MD Referring Provider Active Start: June 29, 2024 Dr. Silviano Daley MD Other Provider Active Start: June 29, 2024 Team Status: Inactive Member Role Status Dates Xenia Lane PA, PA-C Primary Care Provider Active Start: July 04, 2024 End: July 04, 2024 Xenia Hills PA, PA-C Referring Provider Active Start: July 04, 2024 End: July 04, 2024 Dr. Silviano Daley MD Attending Provider Active Start: July 04, 2024 End: July 04, 2024 Team Status: Active Member Role Status Dates Xenia Domingo PA, PA-C Primary Care Provider Active Start: July 04, 2024 Dr. Silviano Daley MD Attending Provider Active Start: July 04, 2024 Dr. Silviano Daley MD Referring Provider Active Start: July 04, 2024 Team Status: Inactive Member Role Status Dates Xenia Domingo PA, PA-C Primary Care Provider Active Start: June 27, 2024 End: June 28, 2024 Dr. Pancho Gagnon DO Attending Provider Active Start: June 27, 2024 End: June 28, 2024 Dr. Pancho Gagnon DO Emergency Provider Active Start: June 27, 2024 End: June 28, 2024 Team Status: Inactive Member Role Status Dates Xenia Hills PA, PA-C Primary Care Provider Active Start: July 04, 2024 End: July 04, 2024 Dr. Silviano Daley MD Attending Provider Active Start: July 04, 2024 End: July 04, 2024 Dr. Silviano Daley MD Referring Provider Active Start: July 04, 2024 End: July 04, 2024 Dry Chain Offbearer Relationship Specialty Start Date End Date Xenia Lane PA-C [address] [place] [address] [place] [address] PCP - General Family Medicine 06/29/24 Reason for Visit (unrecogniz ed section and content) Reason Comments Procedure Specialty Diagnoses / Procedures Referred By Contac t Referred To Contact Diagnoses Painless pancreatitis Acute pancreatitis, unspecified complication status, unspecified pancreatitis type Nausea and vomiting, unspecified vomiting type Procedures K85.95DYB-08-IGJxtobjqx pancreatitis K85.99VMA-28-ABJwshd pancreatitis, unspecified complication status, unspecified pancreatitis type R11.1DSK-37-DMSbfzia and vomiting, unspecified vomiting type Close Seth Leal DO [address] [place] [address] Phone: tel: fax: [facility] Surgical Progressive Care Unit PCU [address] [place] [address] Phone: tel: Referral ID Status Reason Start Date Expiration Date Visits Re quested Visits Authorized [id number] 1 1 Reason Comments New Patient Specialty Diagnoses / Procedures Referred By Contac t Referred To Contact Cardiology Diagnoses Paroxysmal atrial fibrillation (HCC) Atrial fibrillation with RVR (HCC) Procedures UT OFFICE/OUTPATIENT NEW HIGH MDM 60 MINUTES Ravi Abreu MD [address] [place] [address] [facility] [address] [place] [address] Referral ID Status Reason Start Date Expiration Date V isits Requested Visits Authorized [id number] Closed Specialty Services Required 07/05/2023 07/04/2024 1 1 Reason Comments Surgical Consult New Surg Specialty Diagnoses / Procedures [facility] Referred To Contact Bariatrics Diagnoses Morbid (severe) obesity due to excess calories (HCC) Procedures Eval & Treat Silviano Daley [address] [place] [address] [facility] Surg [address] [facility] [address] [place] [address] Referral ID Status Reason Start Date Expiration Date V isits Requested Visits Authorized [id number] Pending Review 09/07/2022 09/07/2023 1 1 Reason Onset Date Comments Financial File 09/10/2022 Financial File 2 023 Surgery Scheduling 09/10/2022 Initial Sched uling - Orders Pended Reason Onset Date Comments Financial File 09/10/2022 Financial File 2 023 Surgery Scheduling 09/10/2022 Initial Sched uling - Orders Pended Reason Comments Weight Loss NEW D/E 1-3 Reason Comments Nutrition Counseling BNA Reason Comments Weight Loss D/E 2-3 Reason Onset Date Comments Abnormal Lab 12/15/2022 Low: iron, Vitam in D; Low normal: Vitamin B12 & Ferritin; Elevated: Total Protein Reason Onset Date Comments Palpitations 12/21/2022 Reason Comments New Patient ER f/u - a-fib w/ RV R Specialty Diagnoses / Procedures Referred By Korina t Referred To Contact Diagnoses Functional dyspepsia Functional dyspepsia [K30] Procedures UT EGD TRANSORAL BIOPSY SINGLE/MULTIPLE EGD WITH BIOPSY Memo Campbell MD [address] [place] [address] [facility] [address] [facility] [place] [address] Referral ID Status Reason Start Date Expiration Date Visits Re quested Visits Authorized [id number] 1 1 Reason Comments Weight Loss D/E final 3 of 3 Specialty Diagnoses / Procedures Referred By Korina gill Referred To Contact Pulmonary Disease / Pulmonology Diagnoses Morbid obesity with BMI of 60.0-69.9, adult (HCC) Daytime sleepiness Pre-operative clearance Procedures UT OFFICE/OUTPATIENT NEW HIGH MDM 60-74 MINUTES Miley Moise PA [address] [place] [address] [facility] [address] [place] [address] Referral ID Status Reason Start Date Expiration Date Visits Requested Visits Authorized [id number] Pending Review Specialty Services Required 10/06/2022 10/06/2023 1 1 Reason Comments Weight Loss D/E 4-3 Reason Onset Date Comments Abnormal Lab 02/24/2023 Low: Vitamin D; Low end NL Vitamin B12 and Ferritin; Elevated Total Protein Reason Onset Date Comments Problem 03/13/2023 Reason Onset Date Comments OTHER 03/11/2023 PT BELIEVES SHE IS IN AFIB AGAIN Reason Onset Date Comments Anticoagulation (Lovenox) 03/29/2023 Reason Comments Weight Management FPOV Specialty Diagnoses / Procedures Referred By Korina gill Referred To Contact Diagnoses Morbid (severe) obesity due to excess calories (HCC) Morbid (severe) obesity due to excess calories (HCC) [E66.01] Procedures UT LAPS GSTR RSTCV PX W/BYP SANDRA-EN-Y LIMB <150 CM UT UNLISTED LAPAROSCOPIC PROCEDURE LIVER LAPAROSCOPIC SANDRA-EN-Y GASTRIC BYPASS WITH LIVER WEDGE BIOPSY, POSSIBLE OPEN UNLISTED LAPAROSCOPIC PROCEDURE LIVER Memo Campbell MD [address] [place] [address] [facility] Main Or [address] [place] [address] Referral ID Status Reason Start Date Expiration Date Visits Re quested Visits Authorized [id number] 1 1 Reason Onset Date Comments Upper L arm lump 05/12/2023 Reason Comments Post-op Problem Pt presents to ED wi th c/o epigastric abdominal that is intermittent sharp, shooting, chills, and feels like heart is racing. States that she was seen in ED yesterday and everything was normal. States she just had gastric bypass surgery 9 days ago. Specialty Diagnoses / Procedures Referred By Korina gill Referred To Contact Diagnoses Dizziness Hemoperitoneum Procedures R42 (ICD-10-CM) - Dizziness Jeannine Worthy MD [address] [place] [address] [facility] [address] [place] [address] Referral ID Status Reason Start Date Expiration Date Visits Re quested Visits Authorized [id number] 1 1 Reason Onset Date Comments Appointment 05/20/2023 1 week Reason Onset Date Comments Dizziness 05/18/2023 Reason Comments Bariatrics Post Op Follow-up 1WK Reason Comments Vomiting Specialty Diagnoses / Procedures Referred By Korina gill Referred To Contact Diagnoses Painless pancreatitis Acute pancreatitis, unspecified complication status, unspecified pancreatitis type Nausea and vomiting, unspecified vomiting type Procedures K85.67JMN-87-MINeebblav pancreatitis K85.25YKC-86-ELTxech pancreatitis, unspecified complication status, unspecified pancreatitis type R11.0MRH-77-XRYruuuq and vomiting, unspecified vomiting type Close Seth Leal, [address] [facility] [address] [place] [address] [facility] H6 Surgical Pcu [address] [place] [address] Reason Comments Bariatrics Post Op Follow-up 1M Reason Comments 6 Month Follow-up Reason Comments Bariatrics Post Op Follow-up 3M Reason Comments Follow-up Reason Comments Illness Patient arrived to E D c/o headache, nausea, dizziness since last Wednesday. States she was seen by PCP and was negative for all viruses. Hx of gastric bypass. PCP was also concerned for her liver labs and wanted her to be seen at the hospital. Recently had blood cultures that came back positive. Specialty Diagnoses / Procedures Referred By Korina t Referred To Contact Diagnoses Anorexia Transaminitis Elevated alkaline phosphatase level Intractable nausea Procedures - Zeenat Gentile MD [address] [place] [address] [facility] [address] [place] [address] Referral ID Status Reason Start Date Expiration Date Visits Re quested Visits Authorized [id number] 1 1 Reason Onset Date Comments Nausea 10/28/2023 Reason Comments Nausea Pt c/o of nausea, we akness and dizziness. 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 Pt states at triage window. I'm pretty sure I'm dehydrated. Specialty Diagnoses / Procedures Referred By Contac t Referred To Contact Diagnoses Transaminitis Procedures - Manuel Villarreal MD [address] [place] [address] [facility] Emergency Dept [address] [place] [address] Referral ID Status Reason Start Date Expiration Date Visits Re quested Visits Authorized [id number] 1 1 Reason Onset Date Comments Care Coordination 11/05/2023 Reason Onset Date Comments Results 11/08/2023 Reason Comments Bariatrics Post Op Follow-up 6M Specialty Diagnoses / Procedures Referred By Contac t Referred To Contact Sleep Medicine Diagnoses MOE (obstructive sleep apnea) Procedures Home sleep test Carmen Hirsch PA-C [address] [place] [address] [facility] [address] [place] [address] Referral ID Status Reason Start Date Expiration Date Visits Re quested Visits Authorized [id number] Closed 08/23/2023 08/17/2024 1 1 Reason Comments Follow-up Reason Comments Bariatrics Post Op Follow-up 12M Reason Onset Date Comments Abnormal Lab 05/12/2024 Vitamin D, Iron, B12 Continuous Active and Recently Administ ered Medications (unrecognized section and content) Medication Order 01/10/2023 01/11/2023 01/12/2023 sodium chloride 0.9 % infusion 50 mL/hr, IntraVENous, Continuous, Starting on Wed01/12/23 at 0700, Preprocedure 0700 (Canceled Entry - Provider: Automatic Discharge Provider - Comment: Automatically canceled at discontinue of medication order)0757 (Anesthesia Volume Adjustment - Provider: El Arriaga APRN - FOUNDRY WORKER APPRENTICE) Scheduled Medication Order 05/09/2023 05/10/2023 05/11/2023 acetaminophen (Tylenol) tablet 1,000 mg (COMPLETED) 1,000 mg, Oral, Once, On Wed05/10/23 at 1200, For 1 dose, Preprocedure, Administer 60 minutes prior to surgery. 1216 (Given - Provider: Jocelyn Sosa RN) albuterol (2.5 MG/3ML) 0.083% nebulizer solution 2.5 mg 2.5 mg, Nebulization, 2 times daily, First dose (after last modification) on Wed05/11/23 at 0800, Phase II/On Unit 0800 (Not Given - Provider: Christy Self RRT - Reason: Patient/family refused) ceFAZolin (Ancef) 3,000 mg in sodium chloride 0.9 % 100 mL IVPB (COMPLETED) 3,000 mg, IntraVENous, at 200 mL/hr, Administer over 30 Minutes, Frozen Yogurt Maker to O.R., On Wed05/10/23 at 1200, For 1 dose, Preprocedure, Administer within 1 hour prior to incision. Repeat in 3-4 hours after initial dose if still intra-op. Default Settings:Auto-dosed by Weight Frozen Yogurt Maker to O.R x 1 dose Auto-dosed: Pt Wt<119.9kg-2gm, >120kg-3gm Mini-Bag Plus bag, Suspected Indication (Select all that apply): Surgical Prophylaxis 1341 (New Bag - Provider: Charlotte Camacho HAND SPINNER - FOUNDRY WORKER APPRENTICE) celecoxib (CeleBREX) capsule 400 mg (COMPLETED) 400 mg, Oral, Once, On Wed05/10/23 at 1200, For 1 dose, Preprocedure, Administer 60 minutes prior to surgery. 1216 (Given - Provider: Jocelyn Sosa RN) diatrizoate meglumine-sodium (Gastrografin) 66-10 % solution 30 mL (COMPLETED) 30 mL, Oral, Once, On Wed05/11/23 at 0745, For 1 dose 0745 (Given - Provid er: Jackson Almanzar, RT (R)) enoxaparin (Lovenox) syringe 40 mg 40 mg, SubCUTAneous, 2 times daily, First dose on Wed05/11/23 at 0900, Phase II/On Unit, Indication of Use: Prophylaxis-DVT/PE 0846 (Given - Provid er: Elise Woodward RN) enoxaparin (Lovenox) syringe 40 mg (CANCELED) 40 mg, SubCUTAneous, Every 12 hours, First dose on Wed05/10/23 at 2200, Indication of Use: Prophylaxis-DVT/PE 2137 (Given - Provider: Babs King RN) famotidine (Pepcid) tablet 20 mg (COMPLETED)(Linked Group 1) 20 mg, Oral, Once, On Wed05/10/23 at 1200, For 1 dose, Preprocedure, IV or Oral 1216 (Given - Provider: Jocelyn Sosa RN) famotidine (Pepcid) tablet 20 mg 20 mg, Oral, 2 times daily, First dose on Wed05/11/23 at 0945 1014 (Given - Provid er: Elise Woodward RN) gabapentin (Neurontin) capsule 100 mg (COMPLETED) 100 mg, Oral, Once, On Wed05/10/23 at 1200, For 1 dose, Preprocedure, Administer 60 minutes prior to surgery. 1216 (Given - Provider: Jocelyn Sosa RN) heparin injection 5,000 Units (COMPLETED) 5,000 Units, SubCUTAneous, Once, On Wed05/10/23 at 1200, For 1 dose, Preprocedure 1216 (Given - Provider: Jocelyn Sosa RN) ketorolac (Toradol) injection 15 mg 15 mg, IntraVENous, Every 8 hours scheduled (3 times per day), First dose on Wed05/10/23 at 2200, For 2 days, Phase II/On Unit 2135 (Given - Provider: Babs King RN) 0519 (Given - Provider: Babs King RN)1307 (Given - Provider: Elise Woodward RN) lactated ringers bolus 1,000 mL (COMPLETED) 1,000 mL, IntraVENous, at 500 mL/hr, Administer over 2 Hours, Once, On Wed05/10/23 at 2200, For 1 dose, Phase II/On Unit 2136 (New Bag - Provider: Babs King RN)2337 (Stopped - Provider: Babs King RN) lactated ringers bolus 1,000 mL (COMPLETED) 1,000 mL, IntraVENous, at 500 mL/hr, Administer over 2 Hours, Once, On Wed05/11/23 at 0315, For 1 dose 0519 (New Bag - Provider: Babs King RN)0719 (Stopped - Provider: Elise Woodward, KATALINA) metoprolol succinate XL (Toprol-XL) 24 hr tablet 25 mg 25 mg, Oral, Daily, First dose on Wed05/11/23 at 0900, Phase II/On Unit, Do not crush or chew. 0846 (Given - Provid er: Elise Woodward RN) pantoprazole (ProtoNix) injection 40 mg (CANCELED) 40 mg, IntraVENous, Administer over 2 Minutes, Daily, First dose on Wed05/11/23 at 0900, Phase II/On Unit 0846 (Given - Provid er: Elise Woodward RN) sodium chloride 0.9% (NS) flush 10 mL 10 mL, IntraVENous, Every 12 hours scheduled (2 times per day), First dose on Wed05/10/23 at 2130, Phase II/On Unit 2135 (Given - Provider: Babs King RN) 0900 (Not Given - Provider: Elise Woodward, RN - Reason: IV Fluids Infusing) Continuous Medication Order 05/09/2023 05/10/2023 05/11/2023 dextrose 5 % and sodium chloride 0.45 % with KCl 20 mEq/L infusion 100 mL/hr, IntraVENous, Continuous, Starting on Wed05/10/23 at 2130, Phase II/On Unit 2134 (New Bag - Provider: Babs King RN) 1156 (New Bag - Provider: Elise Woodward, RN) lactated Ringer's (LR) infusion (CANCELED) 50 mL/hr, IntraVENous, Continuous, Starting on Wed05/10/23 at 1200, Preprocedure, Upon admission to sameday - please start iv if patient does not have iv access. Use 500ml NS for patients on dialysis. 1227 (New Bag - Provider: Jocelyn Sosa RN)1341 (Continued by Anesthesia - Provider: Charlotte Camacho APRN - CT)1535 (New Bag - Provider: LUCIA Anderson CRNA)1640 (Stopped - Provider: LUCIA Anderson CRNA) PRN Medication Order 05/09/2023 05/10/2023 05/11/2023 ALPRAZolam (Xanax) disintegrating tablet 0.25 mg (COMPLETED) 0.25 mg, Oral, Once PRN, anxiety, Starting on Wed05/10/23 at 1154, For 1 dose, Preprocedure, Please do not administer prior to obtaining consent and/or history and physical. 1217 (Given - Provider: Jocelyn Sosa RN) HYDROmorphone (Dilaudid) injection 0.25 mg(Linked Group 2) 0.25 mg, IntraVENous, Every 3 hours PRN, moderate pain (4-6), Starting on Wed05/10/23 at 2115, Phase II/On Unit, If oral and IV narcotics ordered, use oral first and only use IV if oral is ineffective or cannot take oral. Do Not give oral and IV within 1 hour of each other unless specifically ordered. 213 (See Alternative - Provider: Babs King RN) 0519 (See Alternative - Provider: Babs King RN)0854 (See Alternative - Provider: Elise Woodward, RN) HYDROmorphone (Dilaudid) injection 0.5 mg (CANCELED) 0.5 mg, IntraVENous, Every 5 min PRN, severe pain (7-10), Starting on Wed05/10/23 at 1715, For 4 doses, Recovery (only), Phase I and Phase II- Initial therapy for severe pain (7-10). Restricted to a 90 minute time frame starting when the patient can verbally state their pain score. If after 2 doses the pain score does not decrease by more than one point, then call the provider. If oral meds are utilized, do not return to initial therapy medications. 1852 (Given - Provider: Chely Joe RN) HYDROmorphone (Dilaudid) injection 0.5 mg(Linked Group 2) 0.5 mg, IntraVENous, Every 3 hours PRN, severe pain (7-10), Starting on Wed05/10/23 at 2115, Phase II/On Unit, If oral and IV narcotics ordered, use oral first and only use IV if oral is ineffective or cannot take oral. Do Not give oral and IV within 1 hour of each other unless specifically ordered. 2135 (Given - Provider: Babs King RN) 05 (Given - Provider: Babs King RN)0854 (Given - Provider: Elise Woodward, KATALINA) hydrOXYzine HCl (Atarax) tablet 10 mg 10 mg, Oral, Every 8 hours PRN, itching, Starting on Wed05/10/23 at 2115, Phase II/On Unit labetalol (Normodyne,Trandate) injection 10 mg 10 mg, IntraVENous, Every 4 hours PRN, high blood pressure, Starting on Wed05/10/23 at 2115, Phase II/On Unit, First line: for SBP > 160, hold for HR < 60 naloxone (Narcan) injection 0.4 mg 0.4 mg, IntraVENous, Every 5 min PRN, opioid reversal, respiratory depression, Starting on Wed05/10/23 at 2116, +++ For RR <10, pinpoint pupils, over sedation for opioid reversal - MUST notify integration engineer provider immediately after first dose, may give IM or SQ if no IV access +++ ondansetron (Zofran) injection 4 mg(Linked Group 3) 4 mg, IntraVENous, Every 6 hours PRN, nausea, vomiting, Starting on Wed05/10/23 at 2115, Phase II/On Unit, 1st Line. Give IV if patient is unable to take orally. If inadequate response within 60 minutes, proceed to next-line agent or contact provider if no further options ordered. ondansetron ODT (Zofran-ODT) disintegrating tablet 4 mg(Linked Group 3) 4 mg, Oral, Every 8 hours PRN, nausea, vomiting, Starting on Wed05/10/23 at 2115, Phase II/On Unit, 1st Line. If inadequate response within 60 minutes, proceed to next-line agent or contact provider if no further options ordered. Patient should allow tablet to dissolve on tongue. Do not remove from blister pack until just before administering. oxyCODONE-acetaminophen (Percocet) 5-325 MG per tablet 1 tablet(Linked Group 4) 1 tablet, Oral, Every 4 hours PRN, moderate pain (4-6), Starting on Wed05/11/23 at 0737, Phase II/On Unit, Maximum dose of acetaminophen is 4000 mg from all sources in 24 hours. oxyCODONE-acetaminophen (Percocet) 5-325 MG per tablet 2 tablet(Linked Group 4) 2 tablet, Oral, Every 4 hours PRN, severe pain (7-10), Starting on Wed05/11/23 at 0737, Phase II/On Unit, Maximum dose of acetaminophen is 4000 mg from all sources in 24 hours. sodium chloride 0.9 % infusion 5-250 mL/hr, IntraVENous, PRN, if patient receiving piggyback infusions and maintenance fluids are not ordered OR KVO fluids to protect IV site / prevent frequent line interruptions/ long duration, Starting on Wed05/10/23 at 2115, Phase II/On Unit, For piggyback infusion, administer at same rate as piggyback for a total of 25 mL. Enter 25 mL into dose field and piggyback rate into rate field of order. If piggyback is infusing at a rate less than 100 mL/hr, enter 25 mL into dose field and 100 mL/hr into rate field of order. For KVO fluids, enter rate of 20 mL/hr or less into rate field of order. sodium chloride 0.9 % irrigation solution (CANCELED) As needed, Starting on Wed05/10/23 at 1327, Intraprocedure 1327 (Given - Provider: Memo Campbell MD) sodium chloride 0.9% (NS) flush 10 mL 10 mL, IntraVENous, PRN, line care, Starting on Wed05/10/23 at 2115, Phase II/On Unit, After every IV line use sterile water irrigation solution (CANCELED) As needed, Starting on Wed05/10/23 at 1327, Intraprocedure 1327 (Given - Provider: Memo Campbell MD) Linked Groups Order Group 1: famotidine (Pepcid) tablet 20 mg (COMPLETED)Jump to med 20 mg, Oral, Once, On Wed05/10/23 at 1200, For 1 dose, Preprocedure, IV or Oral Or famotidine (Pepcid) 20 mg in sodium chloride (PF) 0.9 % 10 mL injection (COMPLETED) 20 mg, IntraVENous, Administer over 2 Minutes, Once, On Wed05/10/23 at 1200, For 1 dose, Preprocedure, IV or Oral Group 2: HYDROmorphone (Dilaudid) injection 0.25 mgJump to med 0.25 mg, IntraVENous, Every 3 hours PRN, moderate pain (4-6), Starting on Wed05/10/23 at 2115, Phase II/On Unit, If oral and IV narcotics ordered, use oral first and only use IV if oral is ineffective or cannot take oral. Do Not give oral and IV within 1 hour of each other unless specifically ordered. Or HYDROmorphone (Dilaudid) injection 0.5 mgJump to med 0.5 mg, IntraVENous, Every 3 hours PRN, severe pain (7-10), Starting on Wed05/10/23 at 2115, Phase II/On Unit, If oral and IV narcotics ordered, use oral first and only use IV if oral is ineffective or cannot take oral. Do Not give oral and IV within 1 hour of each other unless specifically ordered. Group 3: ondansetron ODT (Zofran-ODT) disintegrating tablet 4 mgJump to med 4 mg, Oral, Every 8 hours PRN, nausea, vomiting, Starting on Wed05/10/23 at 2115, Phase II/On Unit, 1st Line. If inadequate response within 60 minutes, proceed to next-line agent or contact provider if no further options ordered. Patient should allow tablet to dissolve on tongue. Do not remove from blister pack until just before administering. Or ondansetron (Zofran) injection 4 mgJump to med 4 mg, IntraVENous, Every 6 hours PRN, nausea, vomiting, Starting on Wed05/10/23 at 2115, Phase II/On Unit, 1st Line. Give IV if patient is unable to take orally. If inadequate response within 60 minutes, proceed to next-line agent or contact provider if no further options ordered. Group 4: oxyCODONE-acetaminophen (Percocet) 5-325 MG per tablet 1 tabletJump to med 1 tablet, Oral, Every 4 hours PRN, moderate pain (4-6), Starting on Wed05/11/23 at 0737, Phase II/On Unit, Maximum dose of acetaminophen is 4000 mg from all sources in 24 hours. Or oxyCODONE-acetaminophen (Percocet) 5-325 MG per tablet 2 tabletJump to med 2 tablet, Oral, Every 4 hours PRN, severe pain (7-10), Starting on Wed05/11/23 at 0737, Phase II/On Unit, Maximum dose of acetaminophen is 4000 mg from all sources in 24 hours. Scheduled Medication Order 05/19/2023 05/20/2023 05/21/2023 acetaminophen (Ofirmev) IVPB 1,000 mg 1,000 mg, IntraVENous, at 400 mL/hr, Administer over 15 Minutes, Every 8 hours scheduled (3 times per day), First dose on Wed05/19/23 at 2345, Phase II/On Unit, Drug Name: IV Tylenol, Form: injection, Length of Therapy: Indefinite, How soon needed? (normally 72 hrs needed to procure): 0-24 hrs, Reason for Non-Formulary: NPO 0042 (New Bag - Provider: Deysi Guerrero RN)0057 (Stopped - Provider: Deysi Guerrero RN)0901 (New Bag - Provider: lBas Huitron RN)7309 (Stopped - Provider: Blas Huitron RN)1515 (New Bag - Provider: Blas Huitron RN)1530 (Stopped - Provider: Blas Huitron RN)2304 (New Bag - Provider: Sarah Reed RN)2319 (Stopped - Provider: Sarah Reed RN) 0827 (New Bag - Provider: Odette Burleson RN)0842 (Stopped - Provider: Odette Burleson RN)1400 (Canceled Entry - Provider: Automatic Discharge Provider - Comment: Automatically canceled at discontinue of medication order) diatrizoate meglumine-sodium (Gastrografin) 66-10 % solution 30 mL (COMPLETED) 30 mL, Oral, Once, On Wed05/19/23 at 1515, For 1 dose, EMERGENCY PATIENTS 30ML GASTROGRAFIN MIXED IN 32OZ of water, have them drink. Call CT when done. WAIT 1 HOUR THEN SCAN. 1530 (Given - Provider: Lucy Castano RN) magnesium sulfate IVPB premix 2,000 mg (COMPLETED) 2,000 mg, IntraVENous, at 25 mL/hr, Administer over 2 Hours, Once, On Wed05/21/23 at 0600, For 1 dose, Recommended infusion rate not to exceed 1,000 mg (milligrams) per hour. 0616 (New Bag - Provider: Sarah Reed RN)0816 (Stopped - Provider: Odette Burleson RN) metoprolol tartrate (Lopressor) injection 5 mg 5 mg, IntraVENous, Every 6 hours, First dose on Wed05/19/23 at 2345, Phase II/On Unit 2345 (Not Given - Provider: Deysi Guerrero RN - Reason: Other - Comment: BP 107/68, HR 94) 0812 (Given - Provider: Deysi Guerrero RN)1145 (Not Given - Provider: Blas Huitron RN - Reason: Other)1515 (Given - Provider: Blas Huitron RN)2116 (Given - Provider: Sarah Reed RN) 0305 (Given - Provider: Sarah Reed RN)0827 (Given - Provider: Odette Burleson RN)1400 (Canceled Entry - Provider: Automatic Discharge Provider - Comment: Automatically canceled at discontinue of medication order) morphine injection 4 mg (COMPLETED) 4 mg, IntraVENous, Once, On Wed05/19/23 at 1510, For 1 dose, If oral and IV narcotics ordered, use oral first and only use IV if oral is ineffective or cannot take oral. Do Not give oral and IV within 1 hour of each other unless specifically ordered. 1530 (Given - Provider: Lucy Castano RN) nystatin (Mycostatin) 188858 UNIT/ML suspension 500,000 Units 500,000 Units (5 mL), Swish & Swallow, 3 times daily, First dose on Wed05/20/23 at 1400 1515 (Given - Provider: Blas Huitron RN)2116 (Given - Provider: Sarah Reed RN) 0828 (Given - Provider: Odette Burleson RN)1400 (Canceled Entry - Provider: Automatic Discharge Provider - Comment: Automatically canceled at discontinue of medication order) ondansetron (Zofran) injection 4 mg (COMPLETED) 4 mg, IntraVENous, Once, On Wed05/19/23 at 1510, For 1 dose 153 (Given - Provider: Lucy Castano RN) pantoprazole (ProtoNix) 40 mg in sodium chloride (PF) 0.9 % 10 mL injection 40 mg, IntraVENous, Administer over 2 Minutes, Daily, First dose on Wed05/20/23 at 0900, Phase II/On Unit, Reconstitute with 10 ml NS. Vial expires 2 hrs after reconstitution. 0936 (Given - Provider: Blas Huitron RN) 0827 (Given - Provider: Odette Burleson RN) potassium chloride CR (Klor-Con M10) ER tablet 40 mEq (COMPLETED) 40 mEq, Oral, Once, On Wed05/21/23 at 0600, For 1 dose, Best given with food and plenty of water to minimize gastric irritation. Do not crush or chew. 0617 (Given - Provid er: Sarah Reed RN) sodium chloride 0.9 % bolus 500 mL (COMPLETED) 500 mL, IntraVENous, at 500 mL/hr, Administer over 1 Hours, Once, On Wed05/19/23 at 1510, For 1 dose 153 (New Bag - Provider: Lucy Castano RN)1631 (Stopped - Provider: Helen Mccarthy RN) sodium chloride 0.9 % bolus 500 mL (COMPLETED) 500 mL, IntraVENous, at 500 mL/hr, Administer over 1 Hours, Once, On Wed05/19/23 at 2210, For 1 dose 2215 (New Bag - Provider: Danyelle Lu, KATALINA)2315 (Stopped - Provider: Deysi Guerrero, KATALINA) Continuous Medication Order 05/19/2023 05/20/2023 05/21/2023 lactated Ringer's (LR) infusion (CANCELED) 100 mL/hr, IntraVENous, Continuous, Starting on Wed05/19/23 at 2345, Phase II/On Unit 0034 (New Bag - Provider: Panfilo Guerrero, KATALINA)1600 (Rate/Dose Verify - Provider: Blas Huitron RN)1745 (Rate/Dose Verify - Provider: Blas Huitron RN)2124 (New Bag - Provider: Sarah Reed, KATALINA)2237 (Rate/Dose Verify - Provider: Sarah Reed RN) PRN Medication Order 05/19/2023 05/20/2023 05/21/2023 HYDROmorphone (Dilaudid) injection 0.25 mg(Linked Group 1) 0.25 mg, IntraVENous, Every 3 hours PRN, moderate pain (4-6), Starting on Wed05/19/23 at 2332, Phase II/On Unit, If oral and IV narcotics ordered, use oral first and only use IV if oral is ineffective or cannot take oral. Do Not give oral and IV within 1 hour of each other unless specifically ordered. HYDROmorphone (Dilaudid) injection 0.5 mg(Linked Group 1) 0.5 mg, IntraVENous, Every 3 hours PRN, severe pain (7-10), Starting on Wed05/19/23 at 2332, Phase II/On Unit, If oral and IV narcotics ordered, use oral first and only use IV if oral is ineffective or cannot take oral. Do Not give oral and IV within 1 hour of each other unless specifically ordered. iopamidol (Isovue-370) 76 % injection 75 mL (COMPLETED) 75 mL, IntraVENous, IMG once PRN, contrast, Starting on Wed05/19/23 at 1834, For 1 dose 1835 (Given - Provider: Natalie Slo, RT (R)(CT) - Comment: sang scanned/ injected) naloxone (Narcan) injection 0.4 mg 0.4 mg, IntraVENous, Every 5 min PRN, opioid reversal, respiratory depression, Starting on Wed05/19/23 at 2335, +++ For RR <10, pinpoint pupils, over sedation for opioid reversal - MUST notify integration engineer provider immediately after first dose, may give IM or SQ if no IV access +++ ondansetron (Zofran) injection 4 mg(Linked Group 2) 4 mg, IntraVENous, Every 6 hours PRN, nausea, vomiting, Starting on Wed05/19/23 at 2332, Phase II/On Unit, 1st Line. Give IV if patient is unable to take orally. If inadequate response within 60 minutes, proceed to next-line agent or contact provider if no further options ordered. ondansetron ODT (Zofran-ODT) disintegrating tablet 4 mg(Linked Group 2) 4 mg, Oral, Every 8 hours PRN, nausea, vomiting, Starting on Wed05/19/23 at 2332, Phase II/On Unit, 1st Line. If inadequate response within 60 minutes, proceed to next-line agent or contact provider if no further options ordered. Patient should allow tablet to dissolve on tongue. Do not remove from blister pack until just before administering. Linked Groups Order Group 1: HYDROmorphone (Dilaudid) injection 0.25 mgJump to med 0.25 mg, IntraVENous, Every 3 hours PRN, moderate pain (4-6), Starting on Wed05/19/23 at 2332, Phase II/On Unit, If oral and IV narcotics ordered, use oral first and only use IV if oral is ineffective or cannot take oral. Do Not give oral and IV within 1 hour of each other unless specifically ordered. Or HYDROmorphone (Dilaudid) injection 0.5 mgJump to med 0.5 mg, IntraVENous, Every 3 hours PRN, severe pain (7-10), Starting on Wed05/19/23 at 2332, Phase II/On Unit, If oral and IV narcotics ordered, use oral first and only use IV if oral is ineffective or cannot take oral. Do Not give oral and IV within 1 hour of each other unless specifically ordered. Group 2: ondansetron ODT (Zofran-ODT) disintegrating tablet 4 mgJump to med 4 mg, Oral, Every 8 hours PRN, nausea, vomiting, Starting on Wed05/19/23 at 2332, Phase II/On Unit, 1st Line. If inadequate response within 60 minutes, proceed to next-line agent or contact provider if no further options ordered. Patient should allow tablet to dissolve on tongue. Do not remove from blister pack until just before administering. Or ondansetron (Zofran) injection 4 mgJump to med 4 mg, IntraVENous, Every 6 hours PRN, nausea, vomiting, Starting on Wed05/19/23 at 2332, Phase II/On Unit, 1st Line. Give IV if patient is unable to take orally. If inadequate response within 60 minutes, proceed to next-line agent or contact provider if no further options ordered. Scheduled Medication Order 06/09/2023 06/10/2023 06/11/2023 acetaminophen (Ofirmev) IVPB 1,000 mg 1,000 mg, IntraVENous, at 400 mL/hr, Administer over 15 Minutes, Every 8 hours, First dose on Wed06/04/23 at 0000, Phase II/On Unit 0006 (Stopped - Provider: Vera Ramon RN)0931 (New Bag - Provider: Tequila Maharaj RN)0946 (Stopped - Provider: Tequila Maharaj RN)1759 (New Bag - Provider: Tequila Maharaj, KATALINA)1814 (Stopped - Provider: Tequila Maharaj, KATALINA) 0035 (New Bag - Provider: Vera Ramon RN)0050 (Stopped - Provider: Vera Ramon RN)0932 (New Bag - Provider: Perla Peralta, KATALINA)0947 (Stopped - Provider: Perla Peralta, KATALINA)1618 (New Bag - Provider: Perla Peralta, KATALINA)1633 (Stopped - Provider: Perla Peralta, KATALINA)2314 (New Bag - Provider: Aissatou Almanzar, KATALINA)2329 (Stopped - Provider: Aissatou Almanzar, KATALINA) 0817 (Not Given - Provider: Jhonatan Rivera RN - Reason: Patient/family refused) enoxaparin (Lovenox) syringe 40 mg 40 mg, SubCUTAneous, Every 12 hours, First dose on Wed06/07/23 at 2100, Indication of Use: Prophylaxis-DVT/PE 0900 (Not Given - Provider: Tequila Maharaj RN - Reason: Patient/family refused)2255 (Not Given - Provider: Vera Ramon RN - Reason: Patient/family refused) 0900 (Not Given - Provider: Perla Peralta RN - Reason: Patient/family refused)2100 (Not Given - Provider: Aissatou Almanzar RN - Reason: Patient/family refused) 0818 (Not Given - Provider: Jhonatan Rivera RN - Reason: Patient/family refused) heparin flush injection 250 Units 250 Units, IntraCATHeter, Every 12 hours, First dose on Wed06/07/23 at 1615, Each lumen. Do NOT administer to lumens with continuous fluids currently infusing. Line Care. Use 10 mL or larger syringe. 0412 (Given - Provider: Vera Ramon RN)1615 (Not Given - Provider: Tequila Maharaj RN - Reason: IV Fluids Infusing) 0415 (Not Given - Provider: Vera Ramon RN - Reason: Order parameters not met - Comment: both lines infusing)1618 (Given - Provider: Perla Peralta RN) 0507 (Given - Provider: Aissatou Almanzar, KATALINA) metoprolol tartrate (Lopressor) tablet 25 mg 25 mg, Oral, 2 times daily, First dose on Wed06/09/23 at 2100 2256 (Given - Provider: Vera Ramon RN) 0934 (Given - Provider: Perla Peralta RN)2033 (Given - Provider: Aissatou Almanzar RN) 0817 (Given - Provider: Jhonatan Rivera, KATALINA) pantoprazole (ProtoNix) 40 mg in sodium chloride (PF) 0.9 % 10 mL injection 40 mg, IntraVENous, Administer over 2 Minutes, 2 times daily, First dose on Wed06/04/23 at 0600, Phase II/On Unit, Reconstitute with 10 ml NS. Vial expires 2 hrs after reconstitution. 0558 (Given - Provider: Vera Ramon RN)1759 (Given - Provider: Tequila Maharaj RN) 0653 (Given - Provider: Vera Ramon RN)1618 (Given - Provider: Perla Peralta RN) 0507 (Given - Provider: Aissatou Almanzar, RN) potassium chloride 40 mEq in NS 500 mL IVPB (premix) (COMPLETED) 40 mEq, IntraVENous, at 125 mL/hr, Administer over 4 Hours, Once, On Wed06/09/23 at 1100, For 1 dose, Max infusion rate = 10 mEq/hr 1154 (New Bag - Provider: Tequila Maharaj, KATALINA)1554 (Stopped - Provider: Tequila Maharaj RN) potassium chloride 40 mEq in NS 500 mL IVPB (premix) (COMPLETED) 40 mEq, IntraVENous, at 125 mL/hr, Administer over 4 Hours, Once, On Wed06/10/23 at 1300, For 1 dose, Max infusion rate = 10 mEq/hr 1226 (New Bag - Provider: Perla Peralta RN)1626 (Stopped - Provider: Perla Peralat RN) scopolamine (Transderm-Scop) patch 1 patch 1 patch, TransDERmal, Administer over 72 Hours, Every 72 hours, First dose on Wed06/04/23 at 1915, Apply to hairless area of skin behind the ear. 1815 (Medication Applied - Provider: Perla Peralta RN)1914 (Medication Removed - Provider: Perla Peralta RN) 1040 (Due: Medication Removed - Provider: Automatic Discharge Provider - Comment: Time automatically adjusted from order being discontinued) sodium chloride 0.9% (NS) flush 10 mL 10 mL, IntraCATHeter, Every 12 hours, First dose on Wed06/07/23 at 1615, Administer to each lumen, regardless of whether or not fluids are infusing. Line Care. Use 10 mL or larger syringe. 0412 (Given - Provider: Vera Ramon RN)1615 (Given - Provider: Tequila Maharaj, KATALINA) 0415 (Given - Provider: Vera Ramon RN)1615 (Given - Provider: Perla Peralta RN) 0507 (Given - Provider: Aissatou Almanzar, RN) Continuous Medication Order 06/09/2023 06/10/2023 06/11/2023 Adult TPN Central Line () 1,680 mL, IntraVENous, at 70 mL/hr, Administer over 24 Hours, Continuous TPN, Starting on Wed06/08/23 at 1800, For 24 hours, Use a 1.2 micron filter. 0015 (Rate/Dose Verify - Provider: Vera Ramon RN)0304 (Rate/Dose Verify - Provider: Vera Ramon RN)0558 (Rate/Dose Verify - Provider: Vera Ramon RN)1804 (Stopped - Provider: Tequila Maharaj RN) Adult TPN Central Line (CANCELED) 1,680 mL, IntraVENous, at 70 mL/hr, Administer over 24 Hours, Continuous TPN, Starting on Wed06/09/23 at 1800, For 24 hours, Please note: TPN bag starting tonight, 06/09/23 @ 6pm has 107 (ONE HUNDRED seven) meq's of K+, which infuses at 4.46 meq K+/hr. Please adjust any other ordered K+ so that TOTAL POTASSIUM INFUSION does not exceed 10 meq/hr on a non-tele unit or 20 meq/hr on a tele unit. Use a 1.2 micron filter. 1805 (New Bag - Provider: Tequila Maharaj RN)2115 (Rate/Dose Verify - Provider: Vera Ramon RN)2317 (Rate/Dose Verify - Provider: Vera Ramon RN) 0134 (Rate/Dose Verify - Provider: Vera Ramon RN)0443 (Rate/Dose Verify - Provider: Vera Ramon RN)1805 (Stopped - Provider: Perla Peralta RN) Adult TPN Central Line 1,680 mL, IntraVENous, at 70 mL/hr, Administer over 24 Hours, Continuous TPN, Starting on Wed06/10/23 at 0730, For 10 hours, Decrease TPN rate by 1/2 at 4pm today, 06/10/23, then DC TPN at 6pm. No further TPN at this time. Use a 1.2 micron filter. 1600 (Rate/Dose Change - Provider: Perla Peralta RN)1800 (Stopped - Provider: Aissatou Almanzar RN - Comment: kylah freeman RN) PRN Medication Order 06/09/2023 06/10/2023 06/11/2023 heparin flush injection 250 Units 250 Units, IntraCATHeter, PRN, line care, after blood draws and after infusion, Starting on 06/07/23 at 1608, Do NOT administer to lumens with continuous fluids currently infusing. Line Care. Use 10 mL or larger syringe. metoprolol tartrate (Lopressor) injection 5 mg 5 mg, IntraVENous, Every 6 hours PRN, tachycardia, AF with HR>110, Starting on 06/08/23 at 1045, Phase II/On Unit naloxone (Narcan) injection 0.4 mg 0.4 mg, IntraVENous, Every 5 min PRN, opioid reversal, respiratory depression, Starting on Jazmyn 06/03/23 at 2354, +++ For RR <10, pinpoint pupils, over sedation for opioid reversal - MUST notify integration engineer provider immediately after first dose, may give IM or SQ if no IV access +++ ondansetron (Zofran) injection 4 mg 4 mg, IntraVENous, Every 6 hours PRN, nausea, vomiting, Starting on Jazmyn 06/03/23 at 2308, Per Duplicate PRN Medication policy #4027: Use ondansetron first; if not relieved after 30 minutes, then use promethazine. promethazine (Phenergan) injection 25 mg(Linked Group 1) 25 mg, IntraMUSCular, Every 4 hours PRN, nausea, vomiting, Starting on 06/06/23 at 0434, Per Duplicate PRN Medication policy #4027: Use ondansetron first; if not relieved after 30 minutes, then use promethazine. Give IM if patient is unable to take orally or receive rectally. Not for IV administration. promethazine (Phenergan) suppository 25 mg(Linked Group 1) 25 mg, Rectal, Every 12 hours PRN, nausea, vomiting, Starting on 06/06/23 at 0434, Per Duplicate PRN Medication policy #4027: Use ondansetron first; if not relieved after 30 minutes, then use promethazine. Give UT if patient is unable to take orally. promethazine (Phenergan) tablet 25 mg(Linked Group 1) 25 mg, Oral, Every 6 hours PRN, nausea, vomiting, Starting on 06/06/23 at 0434, Per Duplicate PRN Medication policy #4027: Use ondansetron first; if not relieved after 30 minutes, then use promethazine. sodium chloride 0.9% (NS) flush 10 mL 10 mL, IntraCATHeter, PRN, line care, before blood draws, before and after infusion or medication administration, Starting on 06/07/23 at 1608, Use 10 mL or larger syringe. Linked Groups Order Group 1: promethazine (Phenergan) tablet 25 mgJump to med 25 mg, Oral, Every 6 hours PRN, nausea, vomiting, Starting on 06/06/23 at 0434, Per Duplicate PRN Medication policy #4027: Use ondansetron first; if not relieved after 30 minutes, then use promethazine. Or promethazine (Phenergan) suppository 25 mgJump to med 25 mg, Rectal, Every 12 hours PRN, nausea, vomiting, Starting on 06/06/23 at 0434, Per Duplicate PRN Medication policy #4027: Use ondansetron first; if not relieved after 30 minutes, then use promethazine. Give UT if patient is unable to take orally. Or promethazine (Phenergan) injection 25 mgJump to med 25 mg, IntraMUSCular, Every 4 hours PRN, nausea, vomiting, Starting on 06/06/23 at 0434, Per Duplicate PRN Medication policy #4027: Use ondansetron first; if not relieved after 30 minutes, then use promethazine. Give IM if patient is unable to take orally or receive rectally. Not for IV administration. Scheduled Medication Order 10/25/2023 10/26/2023 10/27/2023 calcium citrate (Calcitrate) tablet 475 mg 475 mg (rounded from 500 mg), Oral, 3 times daily, First dose on Wed10/27/23 at 0900 0954 (Given - Provid er: Lexis Price RN)1400 (Not Given - Provider: Lexis Price RN - Reason: Patient/family refused)2100 (Not Given - Provider: Sandy Avery RN - Reason: Patient/family refused) cholecalciferol (Vitamin D-3) tablet 125 mcg 125 mcg, Oral, Daily, First dose on Wed10/27/23 at 0900 1256 (Given - Provid er: Lexis Price RN) enoxaparin (Lovenox) syringe 30 mg 30 mg, SubCUTAneous, Every 12 hours scheduled (2 times per day), First dose on Wed10/27/23 at 0900, Indication of Use: Prophylaxis-DVT/PE 0900 (Not Given - Provider: Lexis Price RN - Reason: Patient/family refused)2100 (Not Given - Provider: Sandy Avery RN - Reason: Patient/family refused) ferrous sulfate tablet 325 mg 325 mg, Oral, 2 times daily, First dose on Wed10/27/23 at 0900 0955 (Given - Provid er: Lexis Price RN)2100 (Not Given - Provider: Sandy Avery RN - Reason: Patient/family refused) magnesium chloride EC tablet 64 mg 64 mg (1 tablet), Oral, Daily, First dose on Wed10/27/23 at 0900, Do not crush, chew, or split. 0900 (Given - Provid er: Lexis Price RN) metoprolol tartrate (Lopressor) tablet 25 mg 25 mg, Oral, 2 times daily, First dose on Wed10/27/23 at 0900 0954 (Given - Provid er: Lexis Price RN)2048 (Given - Provider: Sandy Avery RN) ondansetron (Zofran) injection 4 mg (COMPLETED) 4 mg, IntraVENous, Once, On Wed10/27/23 at 0125, For 1 dose 0202 (Given - Provid er: Nu Mcdonald RN) pantoprazole (ProtoNix) EC tablet 40 mg 40 mg, Oral, Daily before breakfast, First dose on Wed10/27/23 at 0600, Substituted for omeprazole (Prilosec). Do not crush, chew, or split. 0600 (Canceled Entry - Provider: Automatic Discharge Provider - Comment: Automatically canceled at discontinue of medication order) sodium chloride 0.9 % bolus 1,000 mL (COMPLETED) 1,000 mL, IntraVENous, at 1,000 mL/hr, Administer over 1 Hours, Once, On Wed10/26/23 at 2240, For 1 dose 2333 (New Bag - Provider: Dave Ramirez) 0033 (Stopped - Provider: Nu Mcdonald RN) therapeutic multivitamin-minerals (Theragran-M) tablet 1 tablet, Oral, Daily, First dose on Wed10/27/23 at 0900 1000 (Given - Provid er: Lexis Price RN) thiamine (Vitamin B1) tablet 50 mg 50 mg, Oral, Daily, First dose on Wed10/27/23 at 0900 0953 (Given - Provid er: Lexis Price RN) PRN Medication Order 10/25/2023 10/26/2023 10/27/2023 flecainide (Tambocor) tablet 150 mg 150 mg, Oral, Once PRN, Take 3 pills as needed for episodes of atrial fibrillation, Starting on Wed10/27/23 at 0335 HYDROmorphone (Dilaudid) injection 0.5 mg 0.5 mg, IntraVENous, Every 4 hours PRN, moderate pain (4-6), Starting on Wed10/27/23 at 0150, If oral and IV narcotics ordered, use oral first and only use IV if oral is ineffective or cannot take oral. Do Not give oral and IV within 1 hour of each other unless specifically ordered. HYDROmorphone (Dilaudid) injection 1 mg 1 mg, IntraVENous, Every 4 hours PRN, severe pain (7-10), Starting on Wed10/27/23 at 0150, If oral and IV narcotics ordered, use oral first and only use IV if oral is ineffective or cannot take oral. Do Not give oral and IV within 1 hour of each other unless specifically ordered. naloxone (Narcan) injection 0.4 mg 0.4 mg, IntraVENous, Every 5 min PRN, opioid reversal, respiratory depression, Starting on Wed10/27/23 at 0150, +++ For RR <10, pinpoint pupils, over sedation for opioid reversal - MUST notify integration engineer provider immediately after first dose, may give IM or SQ if no IV access +++ ondansetron (Zofran) injection 4 mg(Linked Group 1) 4 mg, IntraVENous, Every 6 hours PRN, nausea, vomiting, Starting on Wed10/27/23 at 0335, 1st Line. Give IV if patient is unable to take orally. If inadequate response within 60 minutes, proceed to next-line agent or contact provider if no further options ordered. ondansetron ODT (Zofran-ODT) disintegrating tablet 4 mg(Linked Group 1) 4 mg, Oral, Every 8 hours PRN, nausea, vomiting, Starting on Wed10/27/23 at 0335, 1st Line. If inadequate response within 60 minutes, proceed to next-line agent or contact provider if no further options ordered. Patient should allow tablet to dissolve on tongue. Do not remove from blister pack until just before administering. polyethylene glycol (PEG) 3350 (Miralax) packet 17 g 17 g, Oral, Daily PRN, constipation, Starting on Wed10/27/23 at 0335, 1st line for treatment of constipation - give scheduled if no bowel movement in past 24 hours. Linked Groups Order Group 1: ondansetron ODT (Zofran-ODT) disintegrating tablet 4 mgJump to med 4 mg, Oral, Every 8 hours PRN, nausea, vomiting, Starting on Wed10/27/23 at 0335, 1st Line. If inadequate response within 60 minutes, proceed to next-line agent or contact provider if no further options ordered. Patient should allow tablet to dissolve on tongue. Do not remove from blister pack until just before administering. Or ondansetron (Zofran) injection 4 mgJump to med 4 mg, IntraVENous, Every 6 hours PRN, nausea, vomiting, Starting on Wed10/27/23 at 0335, 1st Line. Give IV if patient is unable to take orally. If inadequate response within 60 minutes, proceed to next-line agent or contact provider if no further options ordered. Scheduled Medication Order 10/31/2023 11/01/2023 11/02/2023 cyanocobalamin (Vitamin B-12) injection 1,000 mcg 1,000 mcg, IntraMUSCular, Every 30 days, First dose on Wed10/29/23 at 1115 ibuprofen tablet 600 mg 600 mg, Oral, Once, On 10/30/23 at 2100, For 1 dose metoprolol tartrate (Lopressor) tablet 25 mg 25 mg, Oral, 2 times daily, First dose on Wed10/28/23 at 2100 0912 (Given - Provider: Babs Wheeler RN)205 (Given - Provider: Lindsay Emerson RN) 1039 (Given - Provider: Aissatou Parson RN)2223 (Given - Provider: Lindsay Emerson RN) 0814 (Given - Provider: Scott Corral RN) polyethylene glycol (PEG) 3350 (Miralax) packet 17 g 17 g, Oral, Daily, First dose (after last modification) on Wed10/30/23 at 1045, 1st line for treatment of constipation - give scheduled if no bowel movement in past 24 hours. 0900 (Not Given - Provider: Babs Wheeler RN - Reason: Patient/family refused) 1039 (Given - Provider: Aissatou Parson, KATALINA) 0814 (Given - Provider: Scott Corral, KATALINA) potassium chloride CR (Klor-Con M10) ER tablet 40 mEq (COMPLETED) 40 mEq, Oral, Once, On 11/01/23 at 1145, For 1 dose, Best given with food and plenty of water to minimize gastric irritation. Do not crush or chew. 1311 (Given - Provider: Indigo Castano, KATALINA) Continuous Medication Order 10/31/2023 11/01/2023 11/02/2023 lactated Ringer's infusion 75 mL/hr, IntraVENous, Continuous, Starting on Jazmyn 10/28/23 at 1545 0846 (New Bag - Provider: Osiris Lizarraga)1045 (Rate/Dose Verify - Provider: Babs Wheeler RN) 0628 (Rate/Dose Verify - Provider: Lindsay Emerson, KATALINA) PRN Medication Order 10/31/2023 11/01/2023 11/02/2023 acetaminophen (Tylenol) suppository 650 mg(Linked Group 1) 650 mg, Rectal, Every 6 hours PRN, mild pain (1-3), fever, For temp greater than 100.4 F (38 C), Starting on Jazmyn 10/28/23 at 1540, Administer if oral route cannot be used. Maximum dose of acetaminophen is 4000 mg from all sources in 24 hours. acetaminophen (Tylenol) tablet 650 mg(Linked Group 1) 650 mg, Oral, Every 6 hours PRN, mild pain (1-3), fever, For temp greater than 100.4 F (38 C), Starting on Jazmyn 10/28/23 at 1540, Maximum dose of acetaminophen is 4000 mg from all sources in 24 hours. ondansetron (Zofran) injection 4 mg(Linked Group 2) 4 mg, IntraVENous, Every 6 hours PRN, nausea, vomiting, Starting on Jazmyn 10/28/23 at 1540, 1st Line. Give IV if patient is unable to take orally. If inadequate response within 60 minutes, proceed to next-line agent or contact provider if no further options ordered. ondansetron ODT (Zofran-ODT) disintegrating tablet 4 mg(Linked Group 2) 4 mg, Oral, Every 8 hours PRN, nausea, vomiting, Starting on Jazmyn 10/28/23 at 1540, 1st Line. If inadequate response within 60 minutes, proceed to next-line agent or contact provider if no further options ordered. Patient should allow tablet to dissolve on tongue. Do not remove from blister pack until just before administering. Linked Groups Order Group 1: acetaminophen (Tylenol) tablet 650 mgJump to med 650 mg, Oral, Every 6 hours PRN, mild pain (1-3), fever, For temp greater than 100.4 F (38 C), Starting on Jazmyn 10/28/23 at 1540, Maximum dose of acetaminophen is 4000 mg from all sources in 24 hours. Or acetaminophen (Tylenol) suppository 650 mgJump to med 650 mg, Rectal, Every 6 hours PRN, mild pain (1-3), fever, For temp greater than 100.4 F (38 C), Starting on Jazmyn 10/28/23 at 1540, Administer if oral route cannot be used. Maximum dose of acetaminophen is 4000 mg from all sources in 24 hours. Group 2: ondansetron ODT (Zofran-ODT) disintegrating tablet 4 mgJump to med 4 mg, Oral, Every 8 hours PRN, nausea, vomiting, Starting on Jazmyn 10/28/23 at 1540, 1st Line. If inadequate response within 60 minutes, proceed to next-line agent or contact provider if no further options ordered. Patient should allow tablet to dissolve on tongue. Do not remove from blister pack until just before administering. Or ondansetron (Zofran) injection 4 mgJump to med 4 mg, IntraVENous, Every 6 hours PRN, nausea, vomiting, Starting on Jazmyn 10/28/23 at 1540, 1st Line. Give IV if patient is unable to take orally. If inadequate response within 60 minutes, proceed to next-line agent or contact provider if no further options ordered. FOR RECORDS PERTAINING TO PATIENTS WHO ARE OR HAVE BEEN ENROLLED IN A CHEMICAL DEPENDENCY/SUBSTANCEABUSE PROGRAM, SOME INFORMATION MAY BE OMITTED. This clinical summary was aggregated from multiple sources. Caution should be exercised in using it in the provision of clinical care. This summary normalizes information from multiple sources, and as a consequence, information in this document may materially change the coding, format and clinical context of patient data. In addition, data may be omitted in some cases. CLINICAL DECISIONS SHOULD BE BASED ON THE PRIMARY CLINICAL RECORDS. [employer] [facility]. provides no warranty or guarantee of the accuracy or completeness of information in this document.
--- NOTE | 2024-07-29 09:33 | US_ITS ---
PROCEDURE: TRANSVAGINAL NON- 07/29/2024 REASON FOR EXAM: SPOTTING POST MISCARRIAGE TECHNIQUE: Transabdominal pelvic ultrasound COMPARISON: Ob ultrasound 06/28/2024 FINDINGS: Measurements: Uterus: 9.4 x 7.1 x 5.3 with a volume of mL Endometrial Thickness: 15.3 and heterogeneous Right Ovary: 5.0 x 3.9 x 4.8 with a volume of mL. Left Ovary: 2.7 x 1.3 x 1.7 with a volume of mL. Uterus: Anteverted, anteflexed Endometrium: 15.3 mm and heterogeneous Right ovary: 4.4 cm cyst appears simple. Normal blood flow. Left ovary: Unremarkable. Normal blood flow. Dilated vessels in the left adnexa. Other: Thickened endometrium with blood flow US/Transvaginal Non- IMPRESSION: Thickened endometrial with blood flow. Findings raise suspicion for retained p roducts of conception. [facility]
[2024-07-29 10:55] LABS: hCG Titer Quant., Serum 1 mIU/mL (<9 non-preg)
== END | disposition home or self-care (01) ==
LOC: US 09:23
PROVIDERS: PCP Family Medicine; Referring Provider Obstetrics & Gynecology; Visit Provider Obstetrics & Gynecology
DX: O03.9 Complete or unspecified spontaneous abortion without complication (principal)
CPT/HCPCS: 36415; 76830; 84702

== ENCOUNTER 2024-08-01 09:32 | Day surgery (SDC) | payer MEDICAID, SELFPAY ==
--- NOTE | 2024-07-31 16:34 | PAT.ANE_ITS ---
Pre-Assessment Diagnosis/Proposed Procedure Planned Operative Procedure(s): . 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 When Was Last Pacemaker Check QUESTION #4 FULL TEXT: You/Your Family Experience fever (hyperthermia) with Anesthesia Last Oral Intake Last Oral intake: Last Oral Intake NPO since Meds taken in AM with sips of water? Meds patient instructed to take am of surgery PONV PONV - window shade estimator: PONV - window shade estimator Female Yes 07/31/24 13:35 HX of Motion Sickness No 07/31/24 13:35 HX of N/V After Surgery No 07/31/24 13:35 Non-Smoker Yes 07/31/24 13:35 Duration of Surgery greater No 07/31/24 13:35 than 60 minutes Number of Risk Factors 2 07/31/24 13:35 PONV Score Moderate Risk 07/31/24 13:35 Height & Weight Height & Weight: Anesthesia: Height & Weight Height 5 ft 6 in 07/04/24 11:50 Respiratory Assessment Respiratory Assessment - window shade estimator: Respiratory Tract Infection Hx - window shade estimator Hx Respiratory Tract Infection No 07/31/24 13:35 STOP Sleep Apnea STOP Sleep Apnea - window shade estimator: STOP Sleep Apnea - window shade estimator Hx Hypertension No 07/31/24 13:35 Hx Sleep Apnea Yes 07/31/24 13:35 CPAP Yes: NON COMPLIANT 07/31/24 13:35 BIPAP No 07/31/24 13:35 Do you snore loudly (louder than talking or can be heard Do you often feel tired/ fatigued/ sleepy during daytime? Has anyone observed you stop breathing during sleep? STOP Results Positive 07/31/24 13:35 QUESTION #5 FULL TEXT : Do you snore loudly (louder than talking or can be heard through closed doors)? 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 Specify any problems Hx of Preganancy in last 3 Yes 07/31/24 13:35 Months Nurse Filling Out Transfusion [facility] 07/31/24 13:35 & Questions: Date: 07/31/24 07/31/24 13:35 Time: 13:38 07/31/24 13:35 Patient unable to answer at this time (ie. confused, unrespo /Reproduction History /Reproductive History - window shade estimator: /Reproductive Hx- window shade estimator Hx Now No 07/31/24 13:35 Gestational Age (in weeks): EDC: Hx Hx Para Hx Section SAB No 07/31/24 13:35 [facility] Medical History (Updated 07/31/24 @ 14:03 by Tori Bolton) Easy bruising Non-smoker Sleep apnea History of atrial fibrillation Vaginal bleeding during Other obesity Irritable bowel syndrome with diarrhea Depression IUD (intrauterine device) in place Wears glasses Kidney stones Anemia Back pain Injury of back Syncope History of GI bleed Leg cramps History of Holter monitoring History of echocardiogram Hypertension Blood per rectum Palpitations Nausea Calculus of kidney Right flank pain Elevated platelet count Abdominal pain macrosomia depression Gestational HTN Home Medications ?Medication ?Instructions ?Recorded ?Last Taken ?Type calcium citrate 500 mg PO TID 07/31/24 Unkno wn History cholecalciferol (vitamin D3) 50 100 mcg PO DAILY 07/31 Unknown History mcg (2,000 unit) capsule (Vitamin D3) multivitamin (Multiple Vitamins 1 tab PO DAILY 5 Unknown History tablet) Allergy/AdvReac Type Severity Reaction Status Date / Time NSAIDS (Non-Steroidal AdvReac PT UNSURE Verified 07/31/24 13:20 Anti-Inflamma OF REACTION Family History Mother Skin cancer Grandmother Cancer Maternal- Non-Hodgkins lymphoma Grandfather Heart disease Maternal Diabetes Maternal- Type 2 Surgical History (Updated 07/31/24 @ 13:46 by Tori Bolton) Hx of colonoscopy H/O gastric bypass Hx of hernia repair History of cholecystectomy History of surgery Social History adopted: No household members: children housing: house number of children: 4 current occupational status: employed current occupation: [employer] current occupational exposures/hazards: No pets and animals: Yes pets and animals: dog(s) and iguana(s) history of recent travel: No sexually active: Yes Smoking Status: Never smoker alcohol intake: never substance use type: does not use well-balanced diet: daily or most days caffeine: Yes Type: tea Number of servings: 1 eating out: 1-3 times/week during the past year weight has: decreased > 10 lbs what type of physical activity do you participate in: walking frequency: 3-4 times per week duration: 30-45 minutes/day serge/nondenominational: [employer] seatbelt use: always do you feel safe at home: Yes 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 history: Engaged- [employer] at [employer] Audit: Pertinent Findings Pertinent Findings EKG Perinent findings: 02/11/2024. Sinus rhythm 76 bpm. R SR V1. Nondiagnostic. Echo (EF%) pertinent findings: EF 65%. Normal wall motion. Normal size. Consult pertinent findings: Cardiology follow-up visit Sofía. Atrial fibrillation. Paroxysmal. Stable. No changes. Recommendation Anesthesia Recommendation Anesthesia recommendation: OPTIMIZED for anesthesia
[2024-08-01] VITALS (9 sets, daily range): BP systolic 123–137; BP diastolic 8–93; PULSE 72–98; RESP 16; TEMP 36.6–36.9; O2SAT 92–100; BMI 40.2
--- NOTE | 2024-08-01 10:28 | PCM.HP.OB ---
HPI - General HPI Narrative SLIME SABA, is a 28 y/o who presents to [facility] for a suction D&C after a 14 week miscarriage. She delivered the baby at home but has some retained products of conception. [facility] Medical History (Updated 08/01/24 @ 10:[address] Peggy Flynn, DO) Easy bruising Non-smoker Sleep apnea History of atrial fibrillation Vaginal bleeding during Other obesity Irritable bowel syndrome with diarrhea Depression IUD (intrauterine device) in place Wears glasses Kidney stones Anemia Back pain Injury of back Syncope History of GI bleed Leg cramps History of Holter monitoring History of echocardiogram Hypertension Blood per rectum Palpitations Nausea Calculus of kidney Right flank pain Elevated platelet count Abdominal pain macrosomia depression Gestational HTN Home Medications ?Medication ?Instructions ?Recorded ?Last Taken ?Type calcium citrate 500 mg PO TID 07/31/24 Unknown History cholecalciferol (vitamin D3) 50 100 mcg PO DAILY 07/31/24 Unknown History mcg (2,000 unit) capsule (Vitamin D3) multivitamin (Multiple Vitamins 1 tab PO DAILY 07/31/24 Unknown History tablet) Allergy/AdvReac Type Severity Reaction Status Date / Time NSAIDS (Non-Steroidal AdvReac PT UNSURE Verified 07/31/24 13:20 Anti-Inflamma OF REACTION Family History Mother Skin cancer Grandmother Cancer Maternal- Non-Hodgkins lymphoma Grandfather Heart disease Maternal Diabetes Maternal- Type 2 Surgical History (Updated 07/31/24 @ 13:46 by Tori Bolton) Hx of colonoscopy H/O gastric bypass Hx of hernia repair History of cholecystectomy History of surgery Social History adopted: No household members: children housing: house number of children: 4 current occupational status: employed current occupation: [employer] current occupational exposures/hazards: No pets and animals: Yes pets and animals: dog(s) and iguana(s) history of recent travel: No sexually active: Yes Smoking Status: Never smoker alcohol intake: never substance use type: does not use well-balanced diet: daily or most days caffeine: Yes Type: tea Number of servings: 1 eating out: 1-3 times/week during the past year weight has: decreased > 10 lbs what type of physical activity do you participate in: walking frequency: 3-4 times per week duration: 30-45 minutes/day serge/roman catholic: Hinduism seatbelt use: always do you feel safe at home: Yes 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 history: Engaged- [employer]- [employer] at [employer] History 14 Elective abortions 1 Hx Para 4 Spontaneous abortions 8 Hx # Term Pregnancies Ectopic pregnancies 1 Hx # Pregnancies Multiple births # of living children 4 Past Pregnancies Del. Date Name GA/Weeks Outcome Route Bth Weight Gen Labor Lgth Anesthesia Del Locatn Provider FOB Unknown states 7 SAB Unknown elective 201906/02/13 Alvarez 40 live - full term 8#1oz Male epidural [facility] [place] 04/24/15 Guido 41 live - full term 7#4oz Male epidural [facility] [place] 05/03/18 Sandra 41 live - full term 6#12oz Female none [facility] [place]? 03/12/21 Offerle 39 live - full term 8#1oz Male none [facility] [place] 02/28/24 ectopic 06/29/24 14 weeks spontaneous Delivery Date: 02/28/24 Last Updated by: Yeimy Serna methotrexate ROS Constitutional Constitutional: Denies change in weight, chills, fatigue, fever(s), headache(s), poor appetite or weakness Eyes Eyes: Denies blurry vision, change in vision, seeing flashes or spots in vision ENT HEENT: Denies dizziness, headache(s), loss taste/smell or sore throat Cardiovascular Cardiovascular: Denies chest pain, dizziness, dyspnea, irregular heart rhythm, leg edema, palpitations, rapid heart rate or vomiting Respiratory/Chest Respiratory/Chest: Denies chest tightness, cough, dyspnea or breast pain Gastrointestinal Gastrointestinal: Denies abdominal pain, anorexia, constipation, cramping, diarrhea, hemorrhoids, vomiting or weight changes Genitourinary Genitourinary: Denies dysuria, flank pain, genital lesions, genital pain, urinary frequency or urinary urgency Musculoskeletal Musculoskeletal: Denies back pain, difficulty walking, joint pain, limited range of motion, muscle cramps or numbness Integumentary Integumentary: Denies lesions or unusual bruising Neurologic Neurologic: Denies abnormal movements, abnormal speech, dizziness, numbness, seizure-like activity or syncope Psychiatric Psychiatric: Denies anxiety, behavioral changes, change in appetite, change in libido, cognitive impairment, confusion, depression, difficulty concentrating, hallucinations or suicidal thoughts Endocrine Endocrinology: Denies excessive sweating, polydipsia or polyuria Hematologic/Lymphatic Hematologic/Lymphatic: Denies easy bleeding, easy bruising or lymphadenopathy Allergic/Immunologic Allergic/Immunologic: Denies itchy eyes, lip swelling, seasonal rhinorrhea, rhinitis, throat swelling, tongue swelling, eczemia, wheezing or asthma Vital Signs Vital Signs Vital Signs: 08/01/24 10:05 08/01/24 10:05 Temperature 98.5 F Temperature Source Temporal Pulse Rate 72 Respiratory Rate 16 Respiratory Pattern Normal Blood Pressure 130/93 H Blood Pressure Mean 105 Blood Pressure Source Monitor Blood Pressure Position Semi-Fowlers Blood Pressure Location Left Arm Pulse Ox 100 Oxygen Delivery Method Room Air Weight Weight: 249 lb 9.012 oz Body Mass Index (BMI) 40.2 Physical Exam Const alert, oriented x3, no apparent distress and healthy appearing General Appearance: cooperative; Negative for anxious HEENT normocephalic Face and Sinus: normal facial exam Eyes EOMs intact bilaterally and no scleral icterus General Eye: normal appearance of both eyes Neck full ROM and supple Lymph Lymphatic: no lymphadenopathy noted Chest Chest: abnormal inspection of the chest Resp normal respiratory effort Effort and Inspection: able to speak in complete sentences Cardio regular rate external exam normal Extremity normal to inspection, full ROM and no clubbing, cyanosis or edema General Extremity: Negative for calf tenderness or edema Skin Lesions: no lesions Rashes: no rashes Psych mental status grossly normal Labs Labs Labs: Blood Type B POSITIVE Antibody Screen NEGATIVE Hct 28.3 % (37-47) L Hgb 8.8 g/dL (12.0-15.0) L Obstetrics Ultrasound Syphilis Total Ab Nonreactive (Nonreactive) Rubella IgG Antibody REAC (Nonreactive) Hep Bs Antigen Nonreactive (Nonreactive) Hepatitis C Antibody Nonreactive (Nonreactive) Hepatitis C Ab (EIA) 0.2 s/co ratio (0.0-0.9) Chlamydia DNA ([place]) Negative (Negative) N.gonorrhoeae DNA ([place]) Negative (Negative) HIV 1&2 Antibody Nonreactive (Nonreactive) Glucose 1 Hr 50 gm 108 mg/dL (70-140) Group B Strep DNA POSITIVE (Negative) H Rhogam given: No Miscellaneous Test Assessment & Plan (1) Retained products of conception: PLAN: After discussing the patient's diagnosis and treatment plan options, patient wishes to proceed with surgical management. I have discussed with the patient the risks, benefits, and alternatives of the procedure which include but are not limited to risks of anesthesia, bleeding, infection, possible damage to bowel, bladder, or surrounding vasculature which could lead to additional surgery to evaluate any complications. Patient agrees to procedure and wishes to proceed. plan for suction dilation and curettage
--- NOTE | 2024-08-01 10:31 | PCM.PRE.AN2 ---
ASA Classification* ASA Classification ASA Classification: 3 Assessment & Plan Anesthesia* Anesthesia Assessment Anesthesia Assessment: Discussed sedation and/or anesthesia options, risks, benefits, and alternatives with patient/parents/legal guardian/POA. Questions invited. The patient/parents/legal guardian/POA seems to understand and agrees to proceed with anesthesia plan. Reviewed the physical assessment, medical history, allergy history and patient home medications list prior to surgery/procedure/anesthetic and documented any changes. Performed airway and anesthesia risk assessments. Anesthesia Type Anesthesia Type: MAC Anesthesia Focused Assessment* Temperature: 98.5 F Pulse Rate: 72 Blood Pressure: 130/93 Respiratory Rate: 16 Pulse Ox: 100 Airway Assessment Mouth opens: >3 cm Mallampati Score: II Labs Anesthesia Preop lab: CBC WBC 6.7 K/mm3 (4.4-11.0) 07/04/24 11:07/04/24 RBC 3.59 M/mm3 (4.2-5.4) L 07/04/24 11:07/04/24 Hgb 8.8 g/dL (12.0-15.0) L 07/04/24 11:07/04/24 Hct 28.3 % (37-47) L 07/04/24 11:07/04/24 Plt Count 360 K/mm3 (150-450) 07/04/24 11:07/04/24 CHEMISTRY Potassium 3.4 mmol/L (3.3-5.1) 06/27/24 23:23 06/27/24 Sodium 134 mmol/L (133-145) 06/27/24 23:23 06/27/24 BUN 7 mg/dL (4-19) 06/27/24 23:06/27/24 Creatinine 0.58 mg/dL (0.70-1.20) L 06/27/24 23:06/27/24 Glucose 102 mg/dL (70-99) H 06/27/24 23:23 06/27/24 TSH 2.58 uIU/mL (0.358-3.74) 09/03/22 11:25 09/03/22 COAG PT 14.0 SECONDS (11.7-14.9) 06/27/24 23:23 06/27/24 HCG, Quant 1 mIU/mL (<9 non-preg) 07/29/24 09:26 07/29/24 Urine Test Negative Negative 06/11/22 09:33 06/11/22 Tst Clinic Negative 05/08/22 15:01 05/08/22 Pre-Assessment Diagnosis/Proposed Procedure Planned Operative Procedure(s): . Dilation and curettage, suction. 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 When Was Last Pacemaker Check QUESTION #4 FULL TEXT: You/Your Family Experience fever (hyperthermia) with Anesthesia Last Oral Intake Last Oral intake: Last Oral Intake NPO since 23:00 08/01/24 10:05 Meds taken in AM with sips of Yes 08/01/24 10:05 water? Meds patient instructed to take am of surgery PONV PONV - order processing specialist: PONV - order processing specialist Female Yes 07/31/24 13:35 HX of Motion Sickness No 07/31/24 13:35 HX of N/V After Surgery No 07/31/24 13:35 Non-Smoker Yes 07/31/24 13:35 Duration of Surgery greater No 07/31/24 13:35 than 60 minutes Number of Risk Factors 2 07/31/24 13:35 PONV Score Moderate Risk 07/31/24 13:35 Height & Weight Height & Weight: Anesthesia: Height & Weight Height 5 ft 6 in 08/01/24 10:05 Weight: 113.2 kg 08/01/24 10:05 Body Mass Index (BMI) 40.2 08/01/24 10:05 Respiratory Assessment Respiratory Assessment - order processing specialist: Respiratory Tract Infection Hx - order processing specialist Hx Respiratory Tract Infection No 07/31/24 13:35 STOP Sleep Apnea STOP Sleep Apnea - order processing specialist: STOP Sleep Apnea - order processing specialist Hx Hypertension No 07/31/24 13:35 Hx Sleep Apnea Yes 07/31/24 13:35 CPAP Yes: NON COMPLIANT 07/31/24 13:35 BIPAP No 07/31/24 13:35 Do you snore loudly (louder than talking or can be heard Do you often feel tired/ fatigued/ sleepy during daytime? Has anyone observed you stop breathing during sleep? STOP Results Positive 07/31/24 13:35 QUESTION #5 FULL TEXT : Do you snore loudly (louder than talking or can be heard through closed doors)? 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 Specify any problems Hx of Preganancy in last 3 Yes 07/31/24 13:35 Months Nurse Filling Out Transfusion JZOLLPARIS 07/31/24 13:35 & Questions: Date: 07/31/24 07/31/24 13:35 Time: 13:38 07/31/24 13:35 Patient unable to answer at this time (ie. confused, unrespo /Reproduction History /Reproductive History - order processing specialist: /Reproductive Hx- order processing specialist Hx Now No 07/31/24 13:35 Gestational Age (in weeks): EDC: Hx Hx Para Hx Section SAB No 07/31/24 13:35 Active Medications Active Medications: Current Medications Generic Name Dose Route Start Last Admin Trade Name Freq PRN Reason Stop Dose Admin Doxycycline Monohydrate 100 mg 08/01/24 10:26 Doxycycline 100 Mg Capsule PO 08/01/24 10:27 X1 ONE Lactated Ringer's 1,000 mls @ 15 mls/hr 08/01/24 10:00 IV .Q48H TAISHA PFSH Medical History Easy bruising Non-smoker Sleep apnea History of atrial fibrillation Vaginal bleeding during Other obesity Irritable bowel syndrome with diarrhea Depression IUD (intrauterine device) in place Wears glasses Kidney stones Anemia Back pain Injury of back Syncope History of GI bleed Leg cramps History of Holter monitoring History of echocardiogram Hypertension Blood per rectum Palpitations Nausea Calculus of kidney Right flank pain Elevated platelet count Abdominal pain macrosomia depression Gestational HTN Home Medications ?Medication ?Instructions ?Recorded ?Last Taken ?Type calcium citrate 500 mg PO TID 07/31/24 Unknown History cholecalciferol (vitamin D3) 50 100 mcg PO DAILY 07/31/24 Unknown History mcg (2,000 unit) capsule (Vitamin D3) multivitamin (Multiple Vitamins 1 tab PO DAILY 07/31/24 Unknown History tablet) Allergy/AdvReac Type Severity Reaction Status Date / Time NSAIDS (Non-Steroidal AdvReac PT UNSURE Verified 07/31/24 13:20 Anti-Inflamma OF REACTION Family History Mother Skin cancer Grandmother Cancer Maternal- Non-Hodgkins lymphoma Grandfather Heart disease Maternal Diabetes Maternal- Type 2 Surgical History Hx of colonoscopy H/O gastric bypass Hx of hernia repair History of cholecystectomy History of surgery Social History adopted: No household members: children housing: house number of children: 4 current occupational status: employed current occupation: [employer] current occupational exposures/hazards: No pets and animals: Yes pets and animals: dog(s) and iguana(s) history of recent travel: No sexually active: Yes Smoking Status: Never smoker alcohol intake: never substance use type: does not use well-balanced diet: daily or most days caffeine: Yes Type: tea Number of servings: 1 eating out: 1-3 times/week during the past year weight has: decreased > 10 lbs what type of physical activity do you participate in: walking frequency: 3-4 times per week duration: 30-45 minutes/day serge/shinto: Protestant seatbelt use: always do you feel safe at home: Yes 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
[2024-08-01] MEDS: Doxycycline 100 MG CAPSULE PO (10:42)
[2024-08-01] MEDS: Lactated Ringers 1,000 ML 15 ML IV (10:42)
[2024-08-01 11:04] LABS: Absolute Lymphocyte Count 1.67 X10^3/uL (0.83-4.51); Absolute Neutrophil Count 3.3 X10^3/uL (2.0-7.7); Basophil# 0.03 X10^3/uL; Basophil% 0.6 % (0-1); Eosinophil# 0.07 X10^3/uL; Eosinophils% 1.3 % (0-5); Hematocrit 32.5 % (37-47); Lymphocyte # 1.67 X10^3/ul (0.83-4.51); Lymphocyte % 31.1 % (19-41); Mean Corp Hgb Conc 30.8 g/dL (32-36); Mean Corpuscular Hgb 22.6 pg (27.0-32.0); Mean Corpuscular Volume 73.4 fL (81-99); Mean Platelet Vol. 10.8 fl (6.2-12.0); Monocyte# 0.29 X10^3/uL; Monocyte% 5.4 % (0-10); NRBC Flagged by Analyzer 0 % (0-5); Neutrophil # 3.29 X10^3/uL (2.7-7.7); Neutrophil % 61.2 % (47-70); Platelet Count 438 K/mm3 (150-450); RBC Distribution Width CV 14.9 % (11.6-14.6); RBC Distribution Width SD 39.8 fl (35.1-43.9); Red Blood Count 4.43 M/mm3 (4.2-5.4); White Blood Count 5.4 K/mm3 (4.4-11.0)
--- NOTE | 2024-08-01 11:11 | DCINST_ITS ---
Discharge Instructions Diet Discharge Diet: No restrictions DC O2, CPAP, BIPAP needs Home O2 Discharge instructions: No Dressing / Incision Discharge Activity: Return to Normal Activity, May Shower and May Take a Tub Bath (after 1 week) May resume sexual activity in: 1-2 weeks Weight Bearing Status: Weight bearing as tolerated Lifting Restrictions: none Dressing / Incision Call your doctor if you observe: Fever of 101 or Higher, Using more than 1 pad per hour, Shortness of breath and Uncontrolled pain Follow Up Care Please Follow Up With: Peggy Flynn DO When: Call [phone] to schedule appointment. Test Results: Test results from this visit will be discussed in further detail at your follow- up appointment, if applicable. Discharge Plan Admission Primary Reason for Your Visit: suction dilation and curettage Attending Provider: Peggy Flynn Primary Care Provider: Starla Lane Instructions Print Language: Zimbabwean Discharge Orders/Prescriptions Prescriptions: New oxycodone 5 mg capsule 5 mg PO Q4H PRN (Reason: pain) 3 Days Qty: 14 0RF Continued calcium citrate 250 mg calcium tablet 500 mg PO TID cholecalciferol (vitamin D3) [Vitamin D3] 50 mcg (2,000 unit) capsule 100 mcg PO DAILY multivitamin [Multiple Vitamins] Tablet 1 tab PO DAILY Referrals / Follow Up: Starla Lane PA-C [Primary Care Provider] - Disposition Disposition (needs filled in before D/C Order can be placed): Home, Self Care
[2024-08-01] MEDS: Lidocaine 1% (20 ml mdv) 20 ML Vial (11:24)
--- NOTE | 2024-08-01 11:30 | POC_PTH ---
PATIENT: SLIME SABA LOC: [facility] [place] U#:[id number] AGE/SX: 28/F ROOM: RE08/01/[address]: Dr. Peggy Flynn DO : 1995 BED: DIS: 08/01/2024 SPEC #: [id number] RECD: 08/01/24 12:53 STATUS: BERNARD GUILLERMO #: [id number] JESSICA: 08/01/24 11:[address]: Peggy Flynn DEPT: SURGICAL PATHOLOGY RECD BY: Jose Schmidt ENTERED: 08/01/24 13:17 SP TYPE: PROD CONC OTHR DR: Starla Lane PA-C Tissues: A - Product of conception, NOS Procedures: Surgery Specimen Level IV HEADER OPERATION: Dilation and curettage, suction PRE-OP DIAGNOSIS: Retained products of conception TISSUE SUBMITTED: A- Products of conception MICROSCOPIC DIAGNOSIS A. Uterine contents, dilation and suction curettage: * Acutely inflamed and extensively necrotic decidua, clotted blood, and proliferative endometrium * No parts or placental villi are identified MICROSCOPIC DESCRIPTION Slides are reviewed. GROSS DESCRIPTION A. Received in formalin labeled with the patient's name and date of . Designated as products of conception is a 6.5 g, 4.6 x 4.5 x 0.8 cm aggregate of adamson-pink irregular tissue fragments. No tissues are grossly appreciated. Extension Professor sections are submitted in 3 cassettes. [facility] 08/01/2024 CPT:[id number]
[2024-08-01] MEDS: Methylergonovine 0.2 MG/ML Ampul IM (11:32)
--- NOTE | 2024-08-01 11:34 | PCM.OPRPT ---
Problems Associated Problem List Diagnoses (1) Complete : (2) Retained products of conception: Multi Select Codes Urinary/Genital Urinary/Genital CPT Codes: 92938 Surg Trtmt missed Ab 1TM Operative Report (Standard) Operative Information Date of Procedure: 08/01/24 Pre-Operative Diagnosis: retained products of conception after a complete miscarriage Post-Operative Diagnosis: retained products of conception after a complete miscarriage Surgery/Procedure Performed: suction dilation and curettage forging die finisher: No Type of Anesthesia: MAC/Supplemental RN Documented Start/Stop Times: Operation Date: 08/01/24 11:30 Case Time Into Pre-Op 08/01/24 09:47 Out of Pre-Op 08/01/24 11:07 Anesthesia Start 08/01/24 11:11 Into Room 08/01/24 11:11 Procedure Start 08/01/24 11:23 Procedure End 08/01/24 11:31 Procedure Start Time: 11:23 Procedure Stop Time: 11:31 Select all DRAINS/GRAFTS/IMPLANTS that apply: None Estimated Blood Loss: 30cc Specimen collected: Yes Description of specimen(s) removed: endometrial curetting's/products of conception Description of surgery: Patient was taken to the operating room and placed under MAC local anesthesia. She was prepped and draped in the normal sterile fashion the dorsal lithotomy position. Bladder was drained of clear urine and anterior lip of the cervix was grasped and the uterus sounded to 10cm. Cervix was progressively dilated to allow passage of a size 7 suction curette. Progressive passes were made removing the retained products of conception without complication. Sharp curettage confirmed complete removal of the retained products. All instruments were removed from the vagina and excellent hemostasis was noted and the patient was taken to recovery in stable condition. IM methergine was given to help contract the uterus. Surgical Findings: small amount of products of conception removed. Complications Complications: No Admit VTE Documentation VTE Present on Admission: No VTE Mechan Device Prophylaxis: SCD's VTE Pharm Prophylaxis ordered?: No
--- NOTE | 2024-08-01 11:41 | PCM.POST.ANE ---
Anesthesia: Postop Eval I Current Vital Signs Temperature: 98.3 F Pulse Rate: 92 Blood Pressure: 124/90 Respiratory Rate: 16 Pulse Ox: 92 Assessment Airway patent: Yes Spontaneous unlabored respirations: Yes nausea: No Vomiting: No Anesthesia Complication: No Fluid Hydration Crystalloid volume administer (ml): 600 Total IV fluid infused: 600 Progress Note Anesthesia document: Postop Eval 1 completed: Yes
--- NOTE | 2024-08-01 12:53 | POSTOPAN2_ITS ---
Anesthesia Postop Eval I Sum Postop Eval Completion status Anesthesia document: Postop Eval 1 completed: Yes Anesthesia Postop Eval I Summary Anesthesia Postop Eval I Summary: Anesthesia Postop Eval I: Assessment Summary Airway patent Yes 08/01/24 11:41 ARMORING MACHINE OPERATOR.TNES Spontaneous unlabored Yes 08/01/24 11:41 ARMORING MACHINE OPERATOR.TNES respirations Mental status nausea No 08/01/24 11:41 ARMORING MACHINE OPERATOR.TNES Vomiting No 08/01/24 11:41 ARMORING MACHINE OPERATOR.TNES Anesthesia Postop Eval I: Fluid Summary Crystalloid volume administer 600 08/01/24 11:41 ARMORING MACHINE OPERATOR.TNES (ml) Colloids volume administered ( ml) Blood Product volume administered (ml) Total IV fluid infused 600 08/01/24 11:41 ARMORING MACHINE OPERATOR.TNES Anesthesia Postop Eval I: Summary Notes Anesthesia Complication No 08/01/24 11:41 ARMORING MACHINE OPERATOR.TNES Anesthesia Complication Comment: Post-operative progress note Anesthesia: Postop Eval II Evaluation Mental status: Awake Pain Level: 0 nausea: No Vomiting: No
--- NOTE | 2024-08-01 12:53 | PCM.POSTANE2 ---
Anesthesia Postop Eval I Sum Postop Eval Completion status Anesthesia document: Postop Eval 1 completed: Yes Anesthesia Postop Eval I Summary Anesthesia Postop Eval I Summary: Anesthesia Postop Eval I: Assessment Summary Airway patent Yes 08/01/24 11:41 ARCHITECTURAL DESIGN LECTURER.TNES Spontaneous unlabored Yes 08/01/24 11:41 ARCHITECTURAL DESIGN LECTURER.TNES respirations Mental status nausea No 08/01/24 11:41 ARCHITECTURAL DESIGN LECTURER.TNES Vomiting No 08/01/24 11:41 ARCHITECTURAL DESIGN LECTURER.TNES Anesthesia Postop Eval I: Fluid Summary Crystalloid volume administer 600 08/01/24 11:41 ARCHITECTURAL DESIGN LECTURER.TNES (ml) Colloids volume administered ( ml) Blood Product volume administered (ml) Total IV fluid infused 600 08/01/24 11:41 ARCHITECTURAL DESIGN LECTURER.TNES Anesthesia Postop Eval I: Summary Notes Anesthesia Complication No 08/01/24 11:41 ARCHITECTURAL DESIGN LECTURER.TNES Anesthesia Complication Comment: Post-operative progress note Anesthesia: Postop Eval II Evaluation Mental status: Awake Pain Level: 0 nausea: No Vomiting: No
== END 2024-08-01 12:42 | disposition home or self-care (01) ==
LOC: SDC 09:33 → AC 09:34
PROVIDERS: PCP Family Medicine; Referring Provider Obstetrics & Gynecology; Visit Provider Obstetrics & Gynecology
PROC: (CPT 59812; principal; 2024-08-01 11:15)
DX: O03.9 Complete or unspecified spontaneous abortion without complication (principal); I10 Essential (primary) hypertension
CPT/HCPCS: 59812; 01965; 85025; 86850; 86900; 86901; 88305

== ENCOUNTER → 2025-01-16 | Outpatient (CLI) | payer MEDICAID, SELFPAY ==
--- NOTE | 2025-01-16 16:03 | US_ITS ---
PROCEDURE: TRANSVAGINAL W/PREG US 01/16/2025 REASON FOR EXAM: VIABILITY TECHNIQUE: Procedure Code: [id number] Modality: US Procedure: TRANSVAGINAL W/PREG US COMPARISON: None FINDINGS: Comments: LMP: December 04, 2024. Number of Gestational Sacs: 1 Gestational Sac Shape: Normal Number of Fetuses: 1 Heart Rate: 127 beats per minute (average) Survey of Visible Anatomic Structures: Grossly unremarkable for gestational age. Yolk Sac: Present and unremarkable. Placenta: Presently not well-visualized Amniotic Fluid Volume: Subjectively normal for gestational age. Uterine Abnormalities: Maternal uterus is unremarkable.. 1.2 cm x 2 cm x 0.6 cm anechoic area adjacent to the gestational sac. This may represent a subchorionic bleed. Ovaries / Adnexa: Both maternal ovaries are visualized and unremarkable. DIMENSIONS: Parameter Measurement / EGA [place] Rump Length: 6 mm/6 weeks and 4 days Gestational Sac: 1.8 cm/6 weeks and 5 days Yolk Sac: 4 mm/ ESTIMATED GESTATIONAL AGE: By Ultrasound: 6 weeks and 5 days By LMP: 6 weeks and 1 day ESTIMATED DATE OF DELIVERY: By Ultrasound: September 06, 2025 By LMP: September 10, 2025 US/Transvaginal w/Preg US IMPRESSION: Single live intrauterine gestation with a mean gestational age of 6 weeks and 5 days. Small subchorionic bleed. Reading Location: [place] [id number]
== END | disposition home or self-care (01) ==
LOC: US 16:01
PROVIDERS: PCP Family Medicine; Referring Provider Obstetrics & Gynecology; Visit Provider Obstetrics & Gynecology
DX: O26.21 Pregnancy care for patient with recurrent pregnancy loss, first trimester (principal); Z3A.01 Less than 8 weeks gestation of pregnancy
CPT/HCPCS: 76817

== ENCOUNTER → 2025-02-02 | Outpatient (CLI) | payer MEDICAID, SELFPAY ==
--- OUTSIDE RECORDS SUMMARY | 2025-02-02 16:42 | XMS RPT_ITS | CCD ---
Author Organization [facility] Care Team Providers Care Enterprise Manager Name Role Phone [place] PA, PA-C Xenia Primary Care Provider [phone] Herm[place] PA, PA-C Xenia Referring Provider [phone] Ade COMPETENCY EVALUATED NURSE AIDE, COMPETENCY EVALUATED NURSE AIDE-C Lidya Attending Provider [phone] Dr. Silviano Daley Attending Provider [phone] Herm[place] PA, PA-C Xenia Primary Care Provider Herm[place] PA, PA-C Xenia Referring Provider Ade MCBRIDE, COMPETENCY EVALUATED NURSE AIDE-C Lidya Attending Provider [phone] Dr. Silviano Daley Attending Provider [phone] Agustin MCBRIDE, COMPETENCY EVALUATED NURSE AIDE-C Stephany Ojeda Attending Provider [phone] FriendDr. Yang Attending Provider [phone] FriendDr. Yang Other Provider [phone] Herm[place] PA, PA-C Xenia Primary Care Provider [phone] Herm[place] PA, PA-C Xenia Referring Provider Dr. Peggy Flynn Attending Provider [phone] Herm[place] PA, PA-C Xenia Primary Care Provider [phone] Herm[place] PA, PA-C Xenia Referring Provider Dr. Silviano Daley Attending Provider Herm[place] PA, PA-C Xenia Primary Care Provider Herm[place] PA, PA-C Xenia Referring Provider Agustin COMPETENCY EVALUATED NURSE AIDE, COMPETENCY EVALUATED NURSE AIDE-C Stephany Ojeda Attending Provider [phone] Dr. Silviano Daley Attending Provider [phone] [facility] Primary Care Provider [phone] Silviano Daley Unavailable Shannan WALLS, Memo Lux Unavailable [phone] Herm[place] PA, PA-C Xenia Primary Care Provider Herm[place] PA, PA-C Xenia Referring Provider Fernando COMPETENCY EVALUATED NURSE AIDE, COMPETENCY EVALUATED NURSE AIDE-C Beverley Attending Provider Desean RN, Zully Unavailable Jose Abreu MD, Eliazar Unavailable Herm[place] PA-C, Xenia Primary Care Provider Boogie WALLS, Dr. Banegas Attending Provider [phone] Dr. Silviano Daley MD Referring Provider Laurence Lobo Attending Provider Laurence Lobo Referring Provider Herm[place] PA-C, Xenia Referring Provider Dr. Peggy Flynn DO Attending Provider Dr. Peggy Flynn DO Referring Provider Dr. Fernando Al DO Attending Provider Dr. Fernando Al DO Emergency Provider Ade COMPETENCY EVALUATED NURSE AIDE-C, Lidya Attending Provider Ade COMPETENCY EVALUATED NURSE AIDE-CLidya Referring Provider Dr. Jay Liu MD Emergency Provider Herm[place] PA-C, Xenia Primary Care Provider Dr. Silviano Daley MD Attending Provider [phone] Dr. Silviano Daley MD Referring Provider [phone] Dr. Jay Liu MD Attending Provider Christy Whitten CNM Attending Provider Dr. Pancho Gagnon DO Emergency Provider [facility], [place] Primary Care Provider Ester Sanchez DO, Dr. Woods Attending Provider Ester Sanchez DO, Dr[facility] Woods [facility] Referring Provider Laurence Lobo Attending Provider Laurence Lobo Referring Provider Boogie WALLS, Dr. Banegas Attending Provider [phone] Boogie WALLS, Dr. Banegas Referring Provider Boogie WLALS, Dr. Banegas Other Provider [phone] Chelsi BIRCH, Dr. Deleon Attending Provider [facility], [place] D Primary Care Provider [phone] [facility] [place] Primary Care Provider Dr. Peggy Flynn DO Attending Provider Dr. Peggy Flynn DO Referring Provider [facility], [place] Referring Provider Ester Sanchez DO, Dr. Woods Other Provider [phone] VIDYA OTT Attending Unavailable VIDYA OTT Referring [facility] Unavailable DEISY SINGH Attending Unavailable [facility] D Primary Care Unavailable SILVIANO DALEY Referring Unavailabl e XENIA ANTHONY Attending Unavailable DOLTON XENIA D Primary Care Unavailable SILVIANO DALEY Referring Unavailabl e VIRIDIANA ONOFRE Attending Unavailable DOLTON XENIA D Primary Care Unavailable REFERRED, SELF Referring Unavailable VIRIDIANA ONOFRE Attending Unavailable DOLTON XENIA D Primary Care Unavailable SILVIANO DALEY Referring Unavailabl e SILVIANO DALEY Referring Unavailabl VIDYA Davies Attending Unavailable [place], [facility] Primary Care Unavailable [facility], [place] Primary Care Unavailable Silviano Daley Referring Unavailable Silviano Daley Attending Unavailable Hermiston PA, Xenia Primary Care Unavailable Laurence Mccrary Referring Unavailable Laurence Mccrary Attending Unavailable Hermiston PA, Xenia Primary Care Unavailable Silviano Daley Referring Unavailable Silviano Daley Attending Unavailable Herm[place] PA, [place]enia Primary Care Unavailable Laurence Mccrary Attending Unavailable Laurence Mccrary Referring Unavailable Ruth Rodriguez Attending Unavailable Ruth Rodriguez Referring Unavailable Hermiston PA, [place]enia Primary Care Unavailable Silviano Daley Referring Unavailable Silviano Daley Attending Unavailable Herm[place] PA, [place] Primary Care Unavailable Peggy Flynn Attending Unavailabl e Vande VeldePeggy Referring Unavailabl e Herm[place] PA, [place]enia Primary Care Unavailable Silviano Daley Attending Unavailable Silviano Daley Referring Unavailable [facility], [place] Primary Care Unavailable Peggy Flynn Attending Unavailabl e Herm[place] PA, Xenia Primary Care Unavailable Peggy Flynn Attending Unavailabl e Vande Velde, Peggy Referring Unavailabl e Herm[place] PA, [place] Primary Care Unavailable Peggy Flynn Attending Unavailabl e Vande VeldePeggy Referring Unavailabl e [facility], [place] Primary Care Unavailable Ester Sanchez, Peggy Attending Unavailabl e Vande VeldePeggy Referring Unavailabl e Herm[place] PA, [place] Primary Care Unavailable Peggy Flynn Referring Unavailabl e Vande VeldePeggy Attending Unavailabl e Herm[place] PA, [place] Primary Care Unavailable Lidya Booker Referring Unavailable Lidya Booker Attending Unavailable [facility], [place] Primary Care Unavailable Vande Peggy Sanchez Attending Unavailabl e Vande VeldePeggy Referring Unavailabl e Herm[place] PA, [place] Primary Care Unavailable Jay Liu Attending Unavailable Herm[place] PA, [place] Primary Care Unavailable Laurence Mccrary Attending Unavailable Laurence Mccrary Referring Unavailable Herm[place] PA, [place] Primary Care Unavailable Hermiston PA, Xenia Referring Unavailable Silviano Daley Attending Unavailable Herm[place] PA, [place] Primary Care Unavailable Laurence Mccrary Consulting Unavailable Laurence Mccrary Referring Unavailable Phyllis Pichardo Attending Unavailable [facility], [place] Primary Care Unavailable Peggy Flynn Attending Unavailabl e Vande VeldePeggy Referring Unavailabl e [facility], [place] Primary Care Unavailable Pancho Gagnon Attending Unavailable [facility], [place] Primary Care Unavailable Fernando Al Attending Unavailable [facility], [place] Primary Care Unavailable Silviano Daley Referring Unavailable Silviano Daley Attending Unavailable [facility], [place] Primary Care Unavailable Laurence Mccrary Attending Unavailable Laurence Mccrary Referring Unavailable [facility], [place] Primary Care Unavailable Silviano Daley Referring Unavailable Silviano Daley Attending Unavailable [facility], [place] Primary Care Unavailable Peggy Flynn Referring Unavailabl e Vande Velde, Peggy Attending Unavailabl e [place] PA, [place] Primary Care Unavailable Javede Peggy Sanchez Referring Unavailabl e Vande Velde, Peggy Attending Unavailabl e [facility], [place] Primary Care Unavailable Laurence Mccrary Referring Unavailable Laurence Mccrary Attending Unavailable [facility], [place] Referring Unavailable Laurence Mccrary Attending Unavailable [facility], [place] Primary Care Unavailable Peggy Flynn Attending Unavailabl e Vande VeldePeggy Referring Unavailabl e [facility], [place] Primary Care Unavailable [facility], [place] Referring Unavailable Laurence Mccrary Attending Unavailable Ruth Rodriguez Attending Unavailable Laurence Mccrary Attending Unavailable [facility], [place] Primary Care Unavailable [facility], [place] Referring Unavailable Vande VeldePeggy Attending Unavailabl e [place] PA, [place] Primary Care Unavailable [facility], [place] Referring Unavailable Vande Velde, Peggy Attending Unavailabl e [place] PA, [place] Primary Care Unavailable Herm[place] PA, Xenia Referring Unavailable Vande Velde, Peggy Attending Unavailabl e [place] PA, [place] Primary Care Unavailable Vande VeldePeggy Referring Unavailabl e Vande Velde, Peggy Attending Unavailabl e Vande VeldePgegy Consulting Unavailabl e [place] PA, [place] Primary Care Unavailable Silviano Daley Attending Unavailable Silviano Daley Consulting Unavailable Silviano Daley Referring Unavailable Herm[place] PA, Xenia Primary Care Unavailable Herm[place] PA, Xenia Referring Unavailable VandPeggy Suresh Attending Unavailabl e [place] PA, Xenia Primary Care Unavailable Herm[place] PA, [place] Referring Unavailable Vande Peggy Sanchez Attending Unavailabl e Herm[place] PA, [place]enia Primary Care Unavailable Herm[place] PA, Xenia Referring Unavailable Christy Whitten Attending Unavailable Herm[place] PA, Xenia Referring Unavailable [place] PA, [place] Primary Care Unavailable Silviano Daley Attending Unavailable CATALAN, CANDE Admitting Unavailable CATALAN, CANDE Attending Unavailable CATALAN, CANDE Primary Care Unavailable HILLS, XENIA Consulting Unavailable PROVIDER, UNKNOWN Consulting Unavailable CATALAN, CANDE Admitting Unavailable CATALAN, CANDE Attending Unavailable CATALAN, CANDE Primary Care Unavailable HILLS, XENIA Consulting Unavailable PROVIDER, UNKNOWN Consulting Unavailable CATALAN, CANDE Admitting Unavailable CATALAN, CANDE Attending Unavailable CATALAN, CANDE Primary Care Unavailable HILLS, XENIA Consulting Unavailable PROVIDER, UNKNOWN Consulting Unavailable CANDE CATALAN Attending Unavailable CATALAN, CANDE Primary Care Unavailable CATALAN, CANED Admitting Unavailable HILLS, XENIA Consulting Unavailable PROVIDER, UNKNOWN Consulting Unavailable PEGGY JONES DO Admitting Unavaila ble HILLS, XENIA Consulting Unavailable PEGGY JONES DO Primary Care Unavaila ble PEGGY JONES DO Attending Unavaila ble PROVIDER, UNKNOWN Consulting Unavailable HILLS, XENIA Attending Unavailable HILLS, XENIA Admitting Unavailable DOLTON, XENIA Primary Care Unavailable HILLS, XENIA Consulting Unavailable PROVIDER, UNKNOWN Consulting Unavailable ENRICO RANDOLPH Attending Unavailable TOMASA, ENRICO Primary Care Unavailable ENRICO RANDOLPH Admitting Unavailable HILLS, XENIA Consulting Unavailable PROVIDER, UNKNOWN Consulting Unavailable CARROLL DRAKE COMPETENCY EVALUATED NURSE AIDE Attending Unavailable UNGERERCARROLL COMPETENCY EVALUATED NURSE AIDE Primary Care Unavailable UNGERERCARROLL COMPETENCY EVALUATED NURSE AIDE Admitting Unavailable HILLS, XENIA Consulting Unavailable PROVIDER, UNKNOWN Consulting Unavailable HILLS, XENIA Attending Unavailable HILLS, XENIA Admitting Unavailable DOLTON, XENIA Primary Care Unavailable HILLS, XENIA Consulting Unavailable PROVIDER, UNKNOWN Consulting Unavailable HILLS, XENIA Referring Unavailable HILLS, XENIA Consulting Unavailable ANUP LARIOS Admitting Unavailable ANUP LARIOS Primary Care Unavailable ANUP LARIOS Attending Unavailable PROVIDER, UNKNOWN Consulting Unavailable JASWINDER SENA Attending Unavailable JASWINDER SENA Primary Care Unavailable NATHENJASWINDER ESPINAL Admitting Unavailable DOLTON, XENIA Referring Unavailable DOLTON, XENIA Consulting Unavailable PROVIDER, UNKNOWN Consulting Unavailable DOLTON, XENIA Referring Unavailable JESSY MARIE DO Attending Unavailable ERIKA, JESSY DO Primary Care Unavailable JESSY MARIE DO Admitting Unavailable HILLS, XENIA Consulting Unavailable PROVIDER, UNKNOWN Consulting Unavailable NATHEN, JASWINDER Dougherty Attending Unavailable NATHEN, JASWINDER Dougherty Primary Care Unavailable NATHENJASWINDER Admitting Unavailable DOLTON, XENIA Referring Unavailable DOLTON, XENIA Consulting Unavailable PROVIDER, UNKNOWN Consulting Unavailable DOLTON, XENIA Referring Unavailable DOLTON, XENIA Consulting Unavailable LEMDEBRA, ANUP Ruvalcaba Admitting Unavailable LEMASTERS, ANUP Ruvalcaba Primary Care Unavailable LEMASTERS, ANUP Ruvalcaba Attending Unavailable PROVIDER, UNKNOWN Consulting Unavailable Eliazar Abreu MD Unavailable MILEY MOISE Attending Unavailable MILEY MOISE Referring Unavailable DOLTON, TOWANDA Primary Care Unavailable MARY TIRADO Attending Unavailable DOLTON, TOWANDA Primary Care Unavailable MEMO CAMPBELL Attending Unavailable DOLTON, XENIA Referring Unavailable DOLTON, TOWANDA Primary Care Unavailable MEMO CAMPBELL Referring Unavailable MEMO CAMPBELL Attending Unavailable DOLTON, TOWANDA Primary Care Unavailable CHELY GARCIA Attending Unavailable DOLTON, TOWANDA Primary Care Unavailable Allergies Allergy Classification Reported Allergen(s) Allergy Type Date of Onset Reaction(s) Facility (20 sources) Non-steroidal anti-inflammator y agent; Translations: [NSAIDS] Propensity to adverse reactions 4 [employer] (17 sources) Nonsteroidal Anti-inflammator y Compounds Propensity to adverse reactions 5 PT UNSURE OF REACTION [facility] Comment on above: due to gastric bypas s unable to take oral NSAIDS (1 source) NSAIDS (Non-Steroidal Anti-Inflamma Drug allergy (disorder) [address] [facility] (1 source) NSAID Drug allergy (disorder) [facility] Medications Current Medications Medication Drug Class(es) Dates Sig (Normalized) Sig (Original) calcium citrate 1040 mg oral tablet (20 sources) Start: 10-27-2023 End: 10-28-2023 475 mg (rounded from 500 mg), Oral, 3 times daily, First dose on Wed10/27/23 at 0900 Start: 08-11-2023 End: 11-13-2024 take 2 tablets by mouth three times daily, then take 2 tablets by mouth three times daily calcium citrate 250 MG tablet Indications: Deficiency of multiple nutrient elements , Intestinal malabsorption, unspecified type , MOE on CPAP , Primary hypertension , Morbid obesity with BMI of 50.0-59.9, adult (HCC) , History of Sandra-en-Y gastric bypass Take 2 tablets (500 mg) by mouth 3 times daily. Take 2 tablets by mouth three times daily. 180 tablet 11 08/11/2023 11/13/2024 Discontinued cholecalciferol 0.05 mg oral capsule (20 sources) Vitamin D Start: 07-31-2024 take 1 capsule by mouth once daily Cholecalciferol (Vitamin D3) (Vitamin D3) 50 mcg (2,000 unit) capsule Active 100 ug PO DAILY July 31, 2024 12:00am Start: 05-16-2024 End: 07-04-2024 take 1 capsule [...] MCG PO DAILY March 11, 2022 1:00am docosahexaenoic acid 200 mg oral capsule (1 source) Start: 08-14-2024 Docosahexaenoi c Acid ( Dha) 200 mg capsule Active mg PO August 14, 2024 12:00am L. Acidophilus/Bifid. Animal is (Daily Probiotic) 2.5 billion cell capsule (10 sources) Start: 03-11-2022 L. Acidophilus /Bifid. Animalis (Daily Probiotic) 2.5 billion cell capsule Active CAP PO March 11, 2022 1:00am Start: 03-11-2022 L. Acidophilus /Bifid. Animalis (Daily Probiotic) 2.5 billion cell capsule Active CAP PO March 11, 2022 12:00am Multiple Vitamin (MULTIVITAMIN PO) (1 source) Multiple Vitamin (MULTIVITAMIN PO) Take by mouth Barilife - vitamin- takes once a day Active Multiple Vitamins-Minerals (BARIATRIC MULTIVITAMINS/IRON PO) (4 sources) Start: 11-15-2023 take 1 tablet by mouth once daily Multiple Vitamins-Minerals (BARIATRIC MULTIVITAMINS/IRON PO) Take 1 tablet by mouth daily. 11/15/2023 Active Multiple Vitamins-Minerals (Centrum Adults) tablet (7 sources) Start: 03-06-2024 take 2 tablets by mouth once daily Multiple Vitamins-Minerals (Centrum Adults) tablet Indications: Low folate , Low iron Take 2 tablets by mouth daily. 60 tablet 11 03/06/2024 Active Multivitamin (Multiple Vitamins) tablet (3 sources) Start: 07-31-2024 Multivitamin (Multiple Vitamins) tablet Active 1 {tbl} PO DAILY July 31, 2024 12:00am Multivitamin mineral supplement (CENTRUM) TABS tablet (1 source) Start: 03-06-2024 take 2 tablets by mouth once daily Multivitamin mineral supplement (CENTRUM) TABS tablet Take 2 Tablets by mouth daily 03/06/2024 Active Vit w/Qb-Mqogwfjta-SA (PNV PO) (1 source) take 1 tablet by mouth once daily Vit w/Ff-Beyndnplz-PP (PNV PO) Take 1 Tablet by mouth daily Active VITAMIN D PO (1 source) VITAMIN D PO Floyd e 6,000 Int'l Units by mouth daily Active Completed/Discontinued Medications Medication Drug Class(es) Dates [...] End: 05-11-2023 lactated ringers bolus 1,000 mL celecoxib 400 mg oral capsule (2 sources) [...] 05/04/2023 05/11/2023 Discontinued (Stop taking at discharge) colestipol hydrochloride 1000 mg oral tablet (20 sources) Bile Acid Sequestrant Start: 02-17-2023 End: 05-27-2023 Colestipol 1 gram tablet Discontinued 1 g PO ONCE February 17, 2023 1:00am March 18, 2023 1:00am March 19, 2023 1:05am Start: 04-29-2022 take 1 g by mouth once Colesti maureen Active 1 GM PO ONCE 60 April 29, 2022 1:00am 24 hr desvenlafaxine succinate 50 mg extended release oral tablet (20 sources) Serotonin and Norepinephrine Reuptake Inhibitor Start: [...] mL syringe Discontinued 40 mg SC DAILY 4 April 06, 2022 1:00am April 13, 2022 4:34pm ergocalciferol 1.25 mg oral capsule (20 sources) Provitamin D2 Compound Start: 03-06-2024 End: 11-13-2024 take 1 capsule by mouth every week, then take 1 capsule by mouth every week ergocalciferol (Vitamin D2) 1.25 MG (79577 UT) capsule Indications: Vitamin D Deficiency Take 1 capsule (1.25 mg) by mouth 1 (one) time per week. Take one capsule by mouth weekly for 8 weeks. 8 capsule 03/06/2024 11/13/2024 Discontinued Start: 02-25-2023 End: 04-16-2023 take 1 capsule by mouth every week, then take 1 capsule by mouth every week ergocalciferol (Vitamin D2) 1.25 MG (31768 UT) capsule Indications: Vitamin D Deficiency Take 1 capsule (1.25 mg) by mouth 1 (one) time per week for 8 doses. Take one capsule by mouth weekly for 8 weeks. 8 capsule 0 02/25/2023 04/16/2023 Active Start: 12-15-2022 End: 02-03-2023 take 1 capsule by mouth every week, then take 1 capsule by mouth every week ergocalciferol (Vitamin D2) 1.25 MG (76825 UT) capsule Indications: Vitamin D Deficiency Take 1 capsule (1.25 mg) by mouth 1 (one) time per week for 8 doses. Take one capsule by mouth weekly for 8 weeks. 8 capsule 0 12/15/2022 02/03/2023 Active famotidine 20 mg oral tablet (2 sources) [...] by chase th twice daily ferrous sulfate 325 (65 Fe) MG tablet Indications: Iron deficiency Take 1 tablet (325 mg) by mouth 2 times daily. 60 tablet 3 05/12/2024 Active Start: 12-15-2022 End: 11-15-2023 take [...] 08/23/2023 Active fluconazole 150 mg oral tablet (17 sources) Azole Antifungal Start: 08-17-2023 End: 10-19-2023 [...] labetalol (Normodyne,Tranda te) injection 10 mg levonorgestrel 0.752529 mg/hr intrauterine system (19 sources) Progestin, Progestin-containing [...] 0900, Do not crush, chew, or split. magnesium gluconate 550 mg oral tablet (20 sources) End: 11-13-2024 take 1 tablet by mouth twice daily magnesium 30 MG tablet Take 30 mg by mouth 2 times daily. 11/13/2024 Discontinued 50 ml magnesium sulfate 40 mg/ml injection [...] (20 sources) beta-Adrenergic Erika Start: 07-05-2023 End: 11-13-2024 take 1 tablet by mouth twice daily metoprolol tartrate (Lopressor) 25 MG tablet Indications: Paroxysmal atrial fibrillation (HCC) Take 1 tablet (25 mg) by mouth 2 times daily. 60 tablet 11 07/05/2023 11/13/2024 Discontinued Start: 06-09-2023 End: 06-11-2023 metoprolol tartrate (Lopress [...] 05-19-2023 End: 05-19-2023 morphine injection 4 mg Djaaljkchamn-Duq-Eamy-Fa -Vit K (Bariatric Multivitamins) 45 mg iron- 800 mcg-120 mcg capsule (17 sources) Start: 11-10-2023 End: 07-04-2024 Unbwqsjevpho-Qpw-Qulk-Fa-V it K (Bariatric Multivitamins) 45 mg iron- 800 mcg-120 mcg capsule Discontinued 1 NMA PO DAILY November 10, 2023 12:00am July 04, 2024 11:04am Start: 11-10-2023 Multivitamin-M ya-Ueyz-Uk-Vit K (Bariatric Multivitamins) 45 mg iron- 800 [...] 2021 1:00am February 24, 2022 5:39pm nystatin 411048 unt/ml oral suspension (20 sources) Polyene Antifungal Start: 05-20-2023 End: 06-11-2023 nystatin (Mycostatin) 063895 UNIT/ML suspension Swish and swallow 5 mL (500,000 Units) 3 times daily for 10 days. 150 mL 05/20/2023 06/11/2023 Discontinued (Stop taking at discharge) Start: 05-20-2023 End: 05-21-2023 nystatin (Mycostatin) 676374 UNIT/ML suspension 500,000 Units nystatin (Mycost atin) 250205 UNIT/GM powder Apply topically 2 times daily. [...] ondansetron ODT (Zofran-ODT) disintegrating tablet 4 mg oxyCODONE hydrochloride 5 mg oral capsule (3 sources) Opioid Agonist Start: 08-01-2024 End: 08-14-2024 take 1 capsule by mouth every four hours as needed for pain Oxycodone 5 mg capsule Discontinued 5 mg PO Q4H as needed for pain 14 August 01, 2024 August 14, 2024 8:07am pantoprazole 40 mg delayed release oral tablet (4 sources) Proton Pump Inhibitor [...] (PF) 0.9 % 10 mL IV syringe Pnv No.408-Zk-Dr2-Dha-Epa-Fi sh 400 mcg-35 mg- 25 mg-5 mg tablet,chewable (12 sources) Start: 05-16-2024 End: 07-04-2024 Pnv No.849-Ck-Yl3-Dha-Epa-Fi sh 400 mcg-35 mg- 25 mg-5 mg tablet,chewable Discontinued {tbl} PO DAILY May 16, 2024 12:00am July 04, 2024 11:04am Start: 05-16-2024 Pnv No.153-Fa- Nu0-Xyv-Dvw-Fish 400 mcg-35 mg- 25 mg-5 mg tablet,chewable Active {tbl} PO DAILY May 16, 2024 12:00am polyethylene glycol 3350 75293 mg powder for oral solution (4 sources) [...] End: 11-01-2023 40 mEq, Oral, Once, On 11/01/23 at [...] (Klor- Con M10) ER tablet 40 mEq Vit,Bqxn59-Enmn-Dgpda (Prenatabs Fa ) 1 TABLET tablet (20 sources) Start: 05-02-2013 End: 06-04-2013 take 1 tablet by mouth once daily Vit,Blyg90-Rsbc-Qabgf (Prenatabs Fa ) 1 TABLET tablet Discontinued 1 {tbl} PO DAILY May 02, 2013 12:00am June 04, 2013 7:31am Start: 05-02-2013 End: 06-04-2013 take 1 tablet by mouth once daily Vit,Wlww01-Zzym-Mnbck (Prenatab s Fa ) 1 TABLET tablet Discontinued 1 TABLET PO DAILY May 02, 2013 12:00am June 04, 2013 7:31am Start: 05-02-2013 End: 06-04-2013 take 1 tablet by mouth once daily Vit,Knhy43-Xhiq-Ovgsb (Prenatab s Fa ) 1 TABLET tablet Discontinued 1 TABLET PO DAILY May 01, 2013 11:00pm June 04, 2013 6:31am Vit,Quxg25-Nmhq-Malvq (Prenatabs Fa) 1 TABLET tablet (20 sources) Start: 04-24-2015 End: 02-24-2022 take 1 tablet by mouth once daily Vit,Uyqd03-Fqil-Igfmv (Prenatabs Fa) 1 TABLET tablet Discontinued 1 {tbl} PO DAILY April 24, 2015 1:00am February 24, 2022 5:39pm Start: 04-24-2015 End: 02-24-2022 take 1 tablet by mouth once daily Vit,Vsom87-Khtr-Smzah (Prenatab s Fa) 1 TABLET tablet Discontinued 1 TABLET PO DAILY April 24, 2015 1:00am February 24, 2022 5:39pm Start: 04-24-2015 End: 02-24-2022 take 1 tablet by mouth once daily Vit,Ielf51-Xedo-Aptza (Prenatab s Fa) 1 TABLET tablet Discontinued 1 TABLET PO DAILY April 24, 2015 12:00am February 24, 2022 4:39pm progesterone 200 mg oral capsule (5 sources) Progesterone Start: 06-28-2024 End: 07-04-2024 Progesterone Micronized 200 mg capsule Discontinued 200 mg VAGINAL AT BEDTIME 30 June 28, 2024 12:00am July 04, 2024 11:04am Promethazine (2 sources) Phenothiazine Start: 06-06-2023 End: 06-11-2023 take 1 tablet by mouth every six hours as needed for nausea and vomiting promethazine (Phenergan) tablet 25 mg Respiratory Therapy Supplies (CareTouch 2 CPAP Hose Milk Receiver Tank Truck) [facility] [place] (20 sources) End: 11-13-2024 Respiratory Therapy Supplies (CareTouch 2 CPAP Hose Milk Receiver Tank Truck) misc Indications: Obstructive Sleep Apnea Syndrome CPAP 10 cm h20 11/13/2024 Discontinued Respiratory Ther apy Supplies (CareTouch 2 CPAP Hose Milk Receiver Tank Truck) misc Indications: Obstructive Sleep Apnea Syndrome CPAP 10 cm h20 Active Respiratory Ther apy Supplies (CareTouch 2 CPAP Hose Milk Receiver Tank Truck) misc Indications: Obstructive Sleep Apnea Syndrome 10 cm h20 Suspended Respiratory Ther apy Supplies (CareTouch 2 CPAP Hose Milk Receiver Tank Truck) misc Indications: Obstructive Sleep Apnea Syndrome 10 cm h20 Active Respiratory Ther apy Supplies (CareTouch 2 CPAP Hose [employer]) misc Indications: Obstructive Sleep Apnea Syndrome 10 cm h20 0 Suspended Respiratory Ther apy Supplies (CareTouch 2 CPAP Hose Milk [employer] Truck) misc Indications: Obstructive Sleep Apnea Syndrome 10 cm h20 0 Active 72 hr scopolamine 0.0139 mg/hr transdermal system [...] on Wed10/27/23 at 0900 Start: 08-11-2023 End: 11-13-2024 take 1 tablet by mouth once daily, then take 1 tablet by [...] tablet by mouth daily. 30 tablet 08/11/2023 11/13/2024 Discontinued vancomycin 125 mg oral capsule (20 sources) Glycopeptide Antibacterial Start: 05-08-2022 End: 05-18-2022 take 1 capsule by mouth every six hours Vancomycin 125 mg capsule Discontinued 125 mg PO EVERY 6 HOURS 40 10 May 08, 2022 12:00am May 17, 2022 12:00am May 18, 2022 12:04am vitamin b12 0.5 mg sublingual tablet (20 sources) Vitamin B12 Start: 05-12-2024 End: 11-13-2024 take 1 tablet under the tongue once daily, then take 1 tablet under the tongue once daily Cyanocobalamin (B-12) 500 MCG sublingual tablet Indications: B12 deficiency Place 500 mcg under the tongue daily. Place 500 mcg under the tongue to dissolve once daily 30 tablet 11 05/12/2024 11/13/2024 Discontinued Start: 10-29-2023 End: 11-02-2023 inject 1000 ug by intramuscular injection every 30 days 1,000 mcg, IntraMUSCular, Every 30 days, First dose on Wed10/29/23 at 1115 Start: 12-15-2022 End: 11-15-2023 take 1 tablet under the tongue once daily Cyanocobalamin (Vitamin B-12) [address] 1 Dose under the tongue daily. 12/15/2022 11/15/2023 Discontinued VITAMIN D, CHOLECALCIFEROL, PO (20 sources) Start: 05-21-2023 End: 11-13-2024 VITAMIN D, CHOLECALCIFEROL, PO Take 4,000 Int'l Units by mouth daily. 05/21/2023 11/13/2024 Discontinued Start: 05-21-2023 VITAMIN D, CHO LECALCIFEROL, PO [...] Active zinc gluconate 50 mg oral tablet (7 sources) Start: 03-06-2024 End: 11-13-2024 take 1 tablet by mouth once daily zinc 50 MG tablet Indications: Low zinc level Take 1 tablet (50 mg) by mouth daily. 30 tablet 3 03/06/2024 11/13/2024 Discontinued Problems Active Problems Problem Classification Problem Date Documented Da te Episodic/Chronic Abdominal pain (20 sources) Abdominal pain; Translations: [Unspecified abdominal pain] Onset: 06-28-2024 04-29-2022 Episodic Cardiac dysrhythmias (20 sources) Paroxysmal atrial fibrillation; Translations: [Paroxysmal atrial fibrillation] Onset: 01-08-2023 12-22-2022 Chronic Deficiency and other anemia (6 sources) Anemia; Translations: [Anemia, unspecified] 06-28-2024 Episodic [...] PCP for management, needs started on medication EKG ordered, refer t o PCP for management, improved with weight loss Gastritis and duodenitis (20 sources) Chronic superficial gastritis; Translations: [Chronic superficial gastritis without bleeding] Onset: 01-10-2023 01-10-2023 Chronic Gastrointestinal hemorrhage (20 sources) Rectal hemorrhage; Translations: [Hemorrhage of anus and rectum] Onset: 06-28-2024 04-29-2022 Episodic Genitourinary symptoms and ill-defined conditions (3 sources) Dysuria; Translations: [Dysuria] Onset: 06-13-2024 Episodic Headache; including migraine (2 sources) Headache; including migraine; Translations: [Headache, unspecified] Onset: 10-24-2023 Hypertension complicating ; childbirth and the puerperium [...] Translations: [Depression] 06-18-2022 Chronic Comment on above: Cecistiq. counseling recommended. Noninfectious gastroenteritis (17 sources) Chronic diarrhea; Translations: [Noninfective gastroenteritis and colitis, unspecified] 04-29-2022 Episodic Nutritional deficiencies (20 sources) Vitamin D deficiency; Translations: [Vitamin D deficiency, unspecified] Onset: 06-07-2023 12-15-2022 Chronic Nutritional deficiencies (20 sources) Serum iron low; Translations: [Iron deficiency] Onset: 06-17-2023 12-15-2022 Episodic Other aftercare (5 sources) Postoperative visit; Translations: [Encounter for other specified surgical aftercare] 05-27-2023 Episodic Other circulatory disease (2 sources) Orthostatic hypotension; Translations: [Orthostatic hypotension] 07-05-2023 Episodic Other circulatory disease (20 sources) H/O: atrial fibrillation; Translations: [Personal history of other diseases of the circulatory system] 05-16-2024 Episodic Comment on above: stopped metoprolol w ith +HPT Other circulatory disease (1 source) Personal history of other diseases of the circulatory system; Translations: [Personal history of other diseases of the circulatory system] Onset: 06-28-2024 Episodic Other complications of ; puerperium affecting management of mother (1 source) Retained placenta without hemorrhage; Translations: [Retained placenta without hemorrhage] Onset: 08-17-2024 Episodic Other complications of (20 sources) Maternal [...] on above: , LANIE 12/27/24, PC Alvarez, [place], Sandra, [place], [facility] (waiting on [facility]) , LANIE 12/27/24, PC Alvarez, [place], Sandra, [place], [employer] [employer], , LANIE 12/27, PC Alvarez, [place], Sandra, José, Fiance Dano Other complications of (20 sources) Pain in female pelvis; Translations: [Other specified related conditions, first trimester] 05-25-2024 Episodic Comment on above: pelvic w transvag Other complications of (14 sources) Urinary tract infection in ; Translations: [Unspecified infection of urinary tract in , unspecified trimester] 06-19-2024 Episodic Other complications of (9 sources) Short cervical length in ; Translations: [Cervical shortening, unspecified trimester] 06-28-2024 Episodic Comment on above: ordered progesterone and recommend MFM consult Other complications of (6 sources) Retained products of conception 08-01-2024 Episodic Other complications of (1 source) Supervision of high risk , unspecified, unspecified trimester; Translations: [Supervision of high risk , unspecified, unspecified trimester] Onset: 06-28-2024 Episodic Other complications of (1 source) Other specified related conditions, first trimester; Translations: [Other specified related conditions, first trimester] Onset: 06-28-2024 Episodic Other complications of (1 source) Unspecified infection of urinary tract in , unspecified trimester; Translations: [Unspecified infection of urinary tract in , unspecified trimester] Onset: 06-28-2024 Episodic Other connective [...] Onset: 07-19-2024 07-19-2024 Episodic Other gastrointestinal disorders (20 sources) Irritable bowel syndrome with diarrhea; Translations: [...] [Constipation, unspecified] 10-19-2023 Episodic Other gastrointestinal disorders (1 source) Constipation, [...] of other serum enzymes] 11-11-2023 Episodic Other nutritional; endocrine; and metabolic disorders [...] nutritional; endocrine; and metabolic disorders (20 sources) Obesity; Translations: [Other obesity] 09-03-2022 Chronic [...] Hypomagnesemia; Translations: [Hypomagnesemia] Onset: 03-15-2024 Chronic Other nutritional; endocrine; and metabolic disorders (2 sources) Body mass index (BMI) 45.0-49.9, adult; Translations: [Body mass index (BMI) 45.0-49.9, adult (HCC)] Onset: 10-29-2023 Chronic Other nutritional; endocrine; and metabolic disorders (2 sources) Loss of appetite; Translations: [Anorexia] 10-27-2023 Episodic Other and delivery including normal (20 sources) Vaginal delivery; Translations: [Encounter for full-term uncomplicated delivery] Onset: 06-28-2024 02-23-2022 Episodic Comment on above: 6w6d on 05/10/24 declines NIPT &Zully er testing Other screening for suspected conditions (not mental disorders or infectious disease) (20 sources) Low serum ferritin; Translations: [Abnormal level of blood mineral] Onset: 10-29-2023 12-15-2022 Episodic Other skin disorders (20 sources) Hirsutism; Translations: [...] Onset: 01-08-2023 01-08-2023 Chronic Residual codes; unclassified (1 source) Sleep apnea; Translations: [Sleep apnea, unspecified] 07-19-2024 Chronic Residual codes; unclassified (2 sources) Obstructive sleep apnea (adult) (pediatric); Translations: [Obstructive sleep apnea (adult) (pediatric)] Onset: 06-09-2023 Chronic Residual codes; unclassified (3 sources) At [...] for preconception due to suspected cervical incompetence Past or Other Problems Problem Classification Problem Date Documented Da te Episodic/Chronic Allergic reactions (1 source) Allergy status to analgesic agent status; Translations: [Allergy status to analgesic agent] Onset: 10-24-2023 Episodic Bacterial infection; unspecified site (3 sources) Bacteremia; Translations: [Bacteremia] Onset: 10-25-2023 Episodic Coma; stupor; and brain damage (20 [...] Translations: [Duodenitis without bleeding] Onset: 10-25-2023 Episodic Hemorrhage during ; abruptio placenta; placenta previa (20 sources) Antepartum hemorrhage; Translations: [Hemorrhage in early , unspecified] Onset: 05-11-2024 02-28-2024 Episodic Nausea and vomiting (20 sources) Nausea and vomiting; Translations: [Nausea with vomiting, unspecified] Onset: 10-29-2023 06-03-2023 Episodic Other aftercare (1 source) Other half-way (current) drug therapy; Translations: [Other half-way (current) drug therapy] Onset: 10-24-2023 Episodic Other aftercare (1 source) longterm (current) use of anticoagulants; 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] Onset: 10-24-2023 Episodic Other gastrointestinal disorders (20 sources) History of bypass of stomach; Translations: [Bariatric surgery status] Onset: 06-09-2023 06-09-2023 Episodic Other gastrointestinal disorders (4 sources) Bariatric surgery status; Translations: [Bariatric surgery status] Onset: 10-24-2023 Episodic Other liver diseases (20 sources) Enzyme level - finding; Translations: [Transaminitis] Onset: 10-27-2023 10-27-2023 Episodic Other liver diseases (3 sources) Abnormal levels of other serum enzymes; Translations: [Abnormal levels of other serum enzymes] Onset: 11-09-2023 Episodic Pancreatic disorders (not diabetes) (20 sources) Painless pancreatitis; Translations: [Acute pancreatitis without necrosis or infection, unspecified] Onset: 06-03-2023 06-03-2023 Episodic Residual codes; unclassified (20 sources) History of clinical finding in subject; Translations: [Personal history of other specified conditions] Onset: 05-03-2023 05-03-2023 Episodic Residual codes; unclassified (20 sources) Difficult venous access; Translations: [Other specified health status] Onset: 05-03-2023 05-03-2023 Episodic Residual codes; unclassified (1 source) Acquired absence of other specified parts of digestive tract; Translations: [Acquired absence of other specified parts of digestive tract] Onset: 10-24-2023 Episodic Spondylosis; intervertebral disc disorders; other back problems (20 sources) Chronic low back pain; Translations: [Chronic midline low back pain without sciatica] Onset: 09-10-2022 09-10-2022 Episodic Urinary tract infections (2 sources) Acute cystitis; Translations: [Acute cystitis without hematuria] Onset: 10-25-2023 05-04-2023 Episodic Results Test Name Value Interpretation Reference Range Facility Office Visiton 11-13-2024 Follow-up visit [id number] Anne Marie Peterson 1995 F Date Provider Department Center 11/13/2024 [id number] GONZALEZ [facility] WT None Family History Problem Relation Age of Onset Cancer Mother Hypertension Mother Obesity Mother Heart disease Father Obesity Father Cancer Maternal Grandmother Heart disease Maternal Grandmother Stroke Maternal Grandfather Hypertension Maternal Grandfather Heart disease Maternal Grandfather Diabetes Maternal Grandfather Obesity Maternal Grandfather Anesthesia problems Maternal Grandfather Alcohol abuse Maternal Grandfather Asthma Maternal Grandfather Hearing loss Father Hearing loss Father Depression Mother Cancer Mother Hypertension Mother Thyroid disease Mother Obesity Mother Family Status - Relation Status Age at Mother Alive Father Alive Maternal Grandmother Alive Maternal Grandfather Alive Father Alive Maternal Grandfather Alive Mother Alive Level of Service:84265 HI OFFICE/OUTPATIENT ESTABLISHED MOD MDM 30 MIN Reason for Visit and Comments: Bariatrics Post Op Follow-up [884] - 18M POP Normal [facility] Progress Noteon 11-13-2024 Progress Note BARIATRIC [facility]ARE CATERINA GALLARDO NOTE POST WEIGHT LOSS SURGERY FOLLOW UP Patient: Anne Marie Peterson Service Date: 11/13/2024 Patient is 18 month(s) s/p RnY Gastric Bypass Today's Metrics: Post-Surgical Weight Loss Date: 11/13/24 Height: 5' 5.25 (165.7 cm) Weight: 242 lb (110 kg) BMI: 39.96 Weight Change: -13.2 lbs Total Weight Change: -161 lbs % EBWL: 58% Comments: 18M POP Post-op Weight Metrics: Post-Surgical Weight Loss Date: 11/13/24 Height: 5' 5.25 (165.7 cm) Weight: 242 lb (110 kg) BMI: 39.96 Weight Change: -13.2 lbs Total Weight Change: -161 lbs % EBWL: 58% Comments: 18M POP (From Surgical Weight Loss Tracker) Patient has the following questions: EATING 3 Pain: Patient rates pain on scale 0-10 as: 0 Exercise Compliance: Exercising: yes If yes: Type: RUNNING Times per week: 3 Min per session: 60 Falls Risk Assessment Patient does take medications which affect BP or mental status Patient does not t have newly prescribed or changed dosage of medications within past 30 days which affect BP or mental status Patient has not fallen in the past 2 months Patient does not t demonstrate unsteady gait Patient uses the following ambulatory assistive devices: NONE Patient states the presence of the following traits which increases risk of fall: NONE Patient is not on home O2 Pre-op Weight Metrics: Labs Completed: no - If NO, patient instructed to get labs drawn today or ALMAZ If YES: Labs completed at [facility]? yes If yes see Labs Tab Labs completed at Non[facility] facility? no If yes see Encounters Tab - Orders only - Historical Provider - Date: Completed by: Debbie Menendez MA [facility] ED MED ADMINISTRATION DETAIL on 08-21-2024 ED MED ADMINISTRATION DETAIL Residential Leasing Manager Medication Administration Record [address] [address] [id number] 08/21/2024 Patient: ANNE MARIE PETERSON Sex: Female : 1995 Age: 28y MEASUREMENTS: Wt: 111.6 kg, Ht/Jorje: 66.0 in, BMI: 39.71 ALLERGIES: NSAIDS (Non-Steroidal Anti-Inflammatory Drug) Medication Ordered Medication Administration Date/Time 1 of 1 [facility] ED NURSES CLINICAL NOTEon ED NURSES CLINICAL NOTE Nurse Narrative Nurse Clinical Narrative [address] [address] [id number] 08/21/2024 19:18:00 Patient: ANNE MARIE PETERSON Sex: Female : 1995 Age: 28y Disposition: Discharge to Home Disposition Decision Time: 23:07 08/21/2024 Departure Time: 23:11 08/21/2024 TRIAGE Arrived by private vehicle. Historian: (patient). Accompanied by family. Primary physician (Zakia Lane). Triage time: 19:19 08/21/2024. Acuity: LEVEL 4. Chief Complaint: FALL. Tripped; fell onto concrete surface and hard surface while running. Landed on arms: hands extended and knees. Location of injuries: left little finger and left leg. Occurred 16:45 08/21/2024. SEPSIS SCREEN: NEGATIVE. SIRS criteria negative: heart rate greater than 90. No possible sources of infection. -- 19:08/21/24 EDT Dari Bass R.N. 19:20 08/21/24. BP: 136/89 MAP: 105. HR: 105. RR: 18. O2 saturation: 98% Temperature: 98.9 F. Pain level now 4/10. -- 19:08/21/24 EDT Dari Bass R.N. Measurements: 19:25 Wt: 111.6 kg, Ht/Jorje: 66.0 in, BMI: 39.71 -- 19:08/21/24 KRYSTEN Bass R.N. Medications: no known home medications -- 19:08/21/24 KRYSTEN Bass R.N. 1 of 4 Nurse Narrative Allergies: NSAIDS (Non-Steroidal Anti-Inflammatory Drug) -- 19:08/21/24 KRYSTEN Bass R.N. Home Medications/Allergy Information Source: patient -- 19:08/21/24 KRYSTEN Bass R.N. Problems: Atrial Fibrillation -- 19:08/21/24 KRYSTEN Bass R.N. Surgeries: Gastric Bypass -- 1908/21/24 KRYSTEN Bass R.N. Hernia Repair -- 19:08/21/24 KRYSTEN Bass R.N. Cholecystectomy -- :08/21/24 KRYSTEN Bass R.N. History 19:08/21/24. PAST MEDICAL HX: Other immunizations: up-to-date. LNMP: (2024). Denies current . SOCIAL HX: Never smoker. No alcohol use or drug use. The patient has not traveled outside the [place] Infectious disease exposure: No infectious disease exposure. ABUSE ASSESSMENT: The patient answered yes to the question(s) Do you feel safe in your home? and no to the question(s) Are you afraid to go home?. Abuse denied. No suspicion of abuse. SELF HARM ASSESSMENT: Self harm assessment was performed. The patient answered no to the question(s) Have you recently felt down, depressed, or hopeless? and Do you have thoughts of harming or killing yourself?. FALL RISK ASSESSMENT: Fall risk assessment completed. No risk factors identified. -- :08/21/24 KRYSTEN Bass R.N. 2 of 4 Nurse Narrative Interventions 19:08/21/24. Advanced care plan discussed with patient (Full code). -- 19:08/21/24 KRYSTEN Bass R.N. PHYSICAL ASSESSMENT 21:08/21/24. Ambulatory to room. GENERAL / NEURO / PSYCH: Alert. Oriented X 4. Appears in no acute distress. HEENT: Pupils equal, round and reactive to light. Head non-tender. RESPIRATORY: Respirations not labored. Chest nontender. Breath sounds within normal limits. CVS: Normal heart rate and rhythm. Pulses within normal limits. Capillary refill less than 2 seconds. GI / : Abdomen soft and nontender. EXTREMITIES: Limited ROM present. Neuro-vascular status intact to the extremity. Left little finger: tenderness and swelling. Limited movement. No laceration, abrasion, puncture wound, foreign body or deformity. No subungual hematoma. Left knee: tenderness, swelling and small and superficial abrasion. Limited ROM secondary to pain. No laceration, puncture wound, foreign body or deformity. SKIN: Skin is warm and dry. -- 21:43 08/21/24 EDT Ángela Doyle R.N. NURSING PROGRESS NOTES 21:33 08/21/24. Patient identifiers checked. Call light placed in reach. Side rails up x 2. Bed placed in lowest position. Brakes of bed on. -- 21:43 08/21/24 EDT Ángela Doyle R.N.Correction -- 23:08/21/24 EDT Ángela Doyle R.N. 21:33 08/21/24. Patient identifiers checked. Side rails up x 2. Bed placed in lowest position. Brakes of bed on. -- 23:31 08/21/24 EDT Ángela Doyle R.N. 21:39 08/21/24. BP: 144/109 MAP: 121. HR: 82. RR: 16. O2 saturation: 99% -- 21:39 08/21/24 EDT Ángela Doyle R.N. 22:05 08/21/24. Patient transported to radiology by stretcher with appliance repair technician. -- 22:09 08/21/24 EDT Ángela Doyle R.N. 22:36 08/21/24. Rounding: Pain: assessed pain level. Position: states comfortable. Personal care / toileting: denies toileting needs. Set expectations: asked if they needed anything else at this time. -- 23:31 08/21/24 EDT Ángela Doyle R.N. DISPOSITION / DISCHARGE 3 of 4 Nurse Narrative Departure time: 23:11 08/21/2024. Condition at departure: improved and stable. Discharge instructions provided and reviewed with the patient. Patient verbalized understanding. Written instructions provided in Engl (more content not included)... Normal [facility] ED ORDER SHEET (CPOE ONLY)on 08-21-2024 ED ORDER SHEET (CPOE ONLY) Order Sheet Order Sheet [address] [address] [id number] 08/21/2024 Patient: ANNE MARIE PETERSON Sex: Female : 1995 Age: 28y MEASUREMENTS: Wt: 111.6 kg, Ht/Jorje: 66.0 in, BMI: 39.71 ALLERGIES: NSAIDS (Non-Steroidal Anti-Inflammatory Drug) MEDICATION/IV/DRIP/FLUI D ORDERS Order Description Priority Entered Acknowledged Completed LAB ORDERS Order Description Priority Entered Acknowledged Collected Completed DIAGNOSTIC STUDY ORDERS Order Description Priority Entered Acknowledged Completed Knee L Complete Stat Stat 21:56 08/21/2024 21:56 22:50 Jessy Marie D.O. 08/21/2024 08/21/2024 Ángela Lieberman, R.N. R.N. Reason for Study: Knee Injury Hand L 3V Stat Stat 21:56 08/21/2024 21:56 22:50 Jessy Marie D.O. 08/21/2024 08/21/2024 Ángela Lieberman R.N. R.N. Reason for Study: Hands Injury STAFF ORDERS 1 of 2 Order Sheet Order Description Priority Entered Acknowledged Collected Completed [Electronically signed by Jessy Marie D.O. (08/21/2024 23:32 EDT)] 2 of 2 Normal [facility] ED PHYSICIAN CLINICAL REPORT on 08-21-2024 ED PHYSICIAN CLINICAL REPORT Narrative Physician Clinical Narrative [address] [address] [id number] 08/21/2024 19:18:00 Patient: ANNE MARIE PETERSON Sex: Female : 1995 Age: 28y Disposition: Discharge to Home Disposition Decision Time: 23:07 08/21/2024 Departure Time: 23:11 08/21/2024 Measurements Wt: 111.6 kg, Ht/Jorje: 66.0 in, BMI: 39.71 Initial Vital Sign Measured Time BP MAP HR RR O2Sat ETCO2 Temp Pain GCS RTS 19:20 08/21/2024 136/89 105 105 18 98% 98.9 F 4 Time Seen: 21:37 08/21/2024. Arrived- By private vehicle. Historian- patient. HISTORY OF PRESENT ILLNESS Chief Complaint: FALL. The injury occurred today. (A 20-year-old otherwise healthy female presents to the ED for a fall. She reports that earlier this evening multiple hours prior to arrival she was running with her dog when her dog abruptly stopped in front of her which caused her to trip and fall. Fell onto left knee then left side. No head strike or LOC. Ambulated home and brought self to ED for pain, swelling, abrasion to left knee. She had some discomfort on her left hand along the pinky fingers well. She did have normal range of motion at these affected joints. No numbness or tingling. No weakness in his extremities. She is unsure when she last had a tetanus however declined update today that is white there has been recommended to her. Denied any other symptoms, complaints, or other injuries at this time.). 1 of 4 Narrative REVIEW OF SYSTEMS RESPIRATORY: No difficulty breathing. CVS: No chest pain. NEUROLOGICAL: No numbness, dizziness, weakness or headache. GI: No nausea or vomiting. EYES: No loss of vision. SKIN: No laceration. All other systems reviewed and are negative. PAST HISTORY See nurses notes. Atrial Fibrillation Surgeries: Cholecystectomy Gastric Bypass Hernia Repair Medications: no known home medications Allergies: NSAIDS (Non-Steroidal Anti-Inflammatory Drug) Home Medications/Allergy Information Source: patient - Dari BassChasity, 08/21/2024 19:22 EDT SOCIAL HISTORY Resides in a house. ADDITIONAL NOTES The nursing notes have been reviewed. PHYSICAL EXAM 2 of 4 Narrative Appearance: Alert. No acute distress. Head: Head non-tender. No swelling of head. No Canales's sign or raccoon eyes. Eyes: Pupils equal, round and reactive to light. EOM intact. ENT: No dental injury. Pharynx normal. Neck: No pain with movement of head/neck. No muscle spasm in the neck. Painless ROM. Non-tender. No vertebral tenderness. CVS: Heart sounds normal. Pulses normal. Respiratory: Painless inspiration. Breath sounds normal. Chest nontender. Abdomen: Soft and nontender. Back: No tenderness. ROM normal. No vertebral point tenderness or muscle spasm. Skin: Skin intact. Skin warm and dry. (Superficial abrasion over left knee with no active bleeding.). Extremities: (Patient ambulates without need for assistance. Mild tenderness palpation about the left knee, very mild edema in this region with superficial abrasion as noted above. Normal range of motion of the knee. Normal strength and sensation. mild tenderness over left 5th digit, normal range of motion, motor and sensory intact to radial/ulnar/median nerves, radial pulse +2-4 4 bilaterally.). Neuro: No alteration in mental status. No motor deficit. No weakness. No sensory deficit. LABS, X-RAYS, AND EKG X-Rays: (X-rays obtained left knee and left hand, no obvious acute osseous abnormality such as fracture dislocation). The X-rays were independently viewed by me. PROGRESS AND PROCEDURES MEDICAL DECISION MAKING: (patient seen in ED following a mechanical fall a few hours prior to arrival. She was afebrile, hemodynamically stable. She has baseline mentation and clinically well-appearing. She did have mild tenderness to palpation of the left 5th digit without any deformity or other traumatic findings. Had abrasion and very mild edema with tenderness to palpation about the left knee. She had normal range of motion of all extremities. Normal motor and sensory examination. She was ambulatory. She did not have head strike or other areas of complaints to warrant further imaging or workup at this time. She did have x-rays obtained of the left knee and left hand which did not reveal any obvious fractures or dislocations. She was advised of this result. Recommended to rest with no strenuous activity until healed, ice and elevate, Tylenol as needed. Recommended local wound care and monitoring for signs of infection and her abrasion. Did recommended advised tetanus immunization however patient declined.). Disposition: Disposition Decision Time: 23:07 08/21/2024. Patient discharged to Home. Discharged in good condition. Discharge decision based on the following: patient's condition is stable. 3 of (more content not included)... [facility] ED SUPER BILLon 08-21-2024 ED SUPER BILL [facility] [address] [address] [id number] 08/21/2024 Patient: ANNE MARIE PETERSON Sex: Female : 1995 Age: 28y Item Professional Category Description Facility Code Code Quantity Fee Total Nurse/E/M EMERGENCY 447449 1 $0.00 $0.00 DEPARTMENT VISIT MODERATE SEVERITY (45881-71) Grand Total $0.00 Providers Jessy Marie D.O. Chief Complaint FALL. Principal Diagnosis Abrasion to the left knee. Contusion to the left little finger and left knee.No left fingernail injury. [address] [facility] ICD-10 Codes S80.212A: Abrasion, left knee, initial encounter S80.02xA: Contusion of left knee, initial encounter S60.052A: Contusion of left little finger without damage to nail, initial encounter 2 of 2 [facility] ED VISIT SUMMARYon ED VISIT SUMMARY Visit Overview Visit Overview [address] [address] [id number] 08/21/2024 Patient: ANNE MARIE PETERSON Sex: Female : 1995 Age: 28y 08/21/2024 11:32 PM EDT ED Arrival:19:18 08/21/2024 EDT Status:not Recent Travel:no Language:eng Adv Directive: Isolation Status: Ethnicity:N Fall Risk:no risk Infectious Disease Exposure:no Measurements:5'6 / 167.6 Self-Harm Status:risk Sepsis Screen:negative cm 246.0 lb / 111.6 kg Chief Complaint:fell onto concrete surface, fell onto hard surface, Landed on arms hands extended, Landed on knees, tripped, while running, (16:45 08/21/2024), and ([place]) ALLERGIES NSAIDS (Non-Steroidal Anti-Inflammatory Drug) HOME MEDICATIONS None 1 of 3 Visit Overview PAST MEDICAL HISTORY / PROBLEMS Atrial Fibrillation LNMP: (2024) Other immunizations: up-to-date See nurses notes PAST SURGICAL HISTORY Cholecystectomy Gastric Bypass Hernia Repair SOCIAL HISTORY Smoking status: No Alcohol use: No Drug use: No ED COURSE MEDICATIONS GIVEN IN EMERGENCY DEPARTMENT IV SITE INFORMATION INTAKE OUTPUT REASSESMENT (most recent) 21:18 08/21/24. Ambulatory to room. GENERAL / NEURO / PSYCH: Alert. Oriented X 4. Appears in no acute distress. HEENT: Pupils equal, round and reactive to light. Head non-tender. RESPIRATORY: Respirations not labored. Chest nontender. Breath sounds within normal limits. CVS: Normal heart rate and rhythm. Pulses within normal limits. Capillary refill less than 2 seconds. GI / : Abdomen soft and nontender. EXTREMITIES: Limited ROM present. Neuro-vascular status intact to the extremity. Left little finger: tenderness and swelling. Limited movement. No laceration, abrasion, puncture wound, foreign body or deformity. No subungual hematoma. Left knee: tenderness, swelling and small and superficial abrasion. Limited ROM secondary to pain. No laceration, puncture wound, foreign body or deformity. SKIN: Skin is warm and dry. 2 of 3 Visit Overview VITAL SIGNS First Vitals Last Vitals Temp 19:20 08/21/24 98.9 F Temp 23:11 08/21/24 97.8 F BP 19:20 08/21/24 136/89 BP 23:11 08/21/24 140/100 HR 19:20 08/21/24 105 HR 23:11 08/21/24 82 RR 19:20 08/21/24 18 RR 23:11 08/21/24 16 O2 Sat 19:20 08/21/24 98% O2 Sat 23:11 08/21/24 100% Pain 19:20 08/21/24 4 Pain 23:11 08/21/24 3 ETCO2 19:20 08/21/24 ETCO2 23:11 08/21/24 GCS 19:20 08/21/24 GCS 23:11 08/21/24 RTS 19:20 08/21/24 RTS 23:11 08/21/24 PROCEDURES NURSING INTERVENTIONS LABS / STUDIES LABS / STUDIES ORDERED Hand L 3V Knee L Complete CLINICAL IMPRESSION ABRASION TO THE LEFT KNEE CONTUSION TO THE LEFT LITTLE FINGER AND LEFT KNEE.NO LEFT FINGERNAIL INJURY 3 of 3 [facility] ED VITALS FLOW SHEETon 08-21 ED VITALS FLOW SHEET Vitals Vital Sign Flow Sheet [address] [address] [id number] 08/21/2024 Patient: ANNE MARIE PETERSON Sex: Female : 1995 Age: 28y Measurements Wt: 111.6 kg, Ht/Jorje: 66.0 in, BMI: 39.71 Measured Time BP MAP HR RR O2Sat ETCO2 Temp Pain GCS RTS 23:11 08/21/2024 140/100 113 82 16 100% 97.8 F 3 21:39 08/21/2024 144/109 121 82 16 99% 19:20 08/21/2024 136/89 105 105 18 98% 98.9 F 4 1 of 1 [facility] HAND LT MIN 3 VIEWSon 2024 HAND LT MIN [address] [address] Patient: ANNE MARIE PETERSON. Phone#: : 1995 Age: 28 Gender: F Pt. Type: ER Account: [id number] Location: 2 Ordering: DR. CORRINE MARIE Exam Date: 08/21/2024/22:17 Family Phys: XENIA LANE Charge Code: 970409 Physician: Ashe Order #: [id number] Dose#: PROCEDURE: X-RAY HAND LT COMPLETE 3 VIEWS COMPARISON: [facility], XR, HAND LT MIN 3 VIEWS, 08/27/2022, 15:21. INDICATIONS: Injury. FINDINGS: BONES: No fracture or acute dislocation. There is scalping of the distal radius and appears to be ulnar positive variance. SOFT TISSUES: Negative. No visible soft tissue swelling. EFFUSION: None visible. OTHER: Negative. CONCLUSION: 1. No acute osseous abnormality 2. Distal radial scalloping and positive ulnar variance, recommend dedicated wrist radiograph on a nonemergent basis to evaluate for chronic changes. Dictated by: Jackeline Anderson MD on 08/22/2024 at 7:47 Approved by: Jackeline Anderson MD on 08/22/2024 at 7:53 [facility] KNEE COMPLETE LT MIN 4 VIEWS on 08-21-2024 KNEE COMPLETE LT MIN 4 VIEWS [place] [id number] [place] [id number] Patient: ANNE MARIE PETERSON Phone#: : 1995 Age: 28 Gender: F Pt. Type: ER Account: [id number] Location: 2 Ordering: DR. CORRINE MARIE Exam Date: 08/21/2024/22:11 Family Phys: XENIA LANE Charge Code: 056359 Physician: Ashe Order #: [id number] Dose#: PROCEDURE: X-RAY KNEE LT COMPLETE 4 VIEWS COMPARISON: None. INDICATIONS: Injury. FINDINGS: BONES: Mild medial compartment joint space loss. Spurring of the medial lateral femoral condyles and tibial plateau. No fracture or dislocation. SOFT TISSUES: Negative. No visible soft tissue swelling. EFFUSION: None visible. OTHER: Negative. CONCLUSION: 1. No acute osseous abnormality. Dictated by: Jackeline Anderson MD on 08/22/2024 at 7:21 Approved by: Jackeline Anderson MD on 08/22/2024 at 7:24 [facility] Visit Reporton 08-14-2024 [facility] Visit Report Normal [facility] Progress Noteon 08-02-2024 C D Still Operator Authentication Interface Message Text [facility] Follow-up Visit ASSESSMENT AND RECOMMENDATIONS Recurrent Loss Genetic Counseling Visit The patient comes today primarily for genetic counseling visit. The [facility] portion of this visit is limited to review of her laboratory values. Specifically, the visit was to review her APLS labs. Thankfully, the patient is negative for APLS based on the testing done at this time. I have deferred the details of the genetic counseling to her visit today. However, I did discuss the case with our genetic counselor during the visit and agree with the plan as documented. I would not recommend any specific medications in at this time and recommend routine obstetrical care. Valentina Singh MD M[facility]AC[facility] Maternal- Medicine SUBJECTIVE Anne Marie is a 28 y.o. who is here at Unknown History of Present Illness OBJECTIVE BP 138/71 (BP Site: Left Arm, Patient Position: Sitting, BP Cuff Size: Lg Adult) Pulse 81 Resp 20 Ht 167.6 cm SpO2 100% BMI 40.22 kg/m NAD Non-labored breathing; normal respiratory effort ND/NT; gravid uterus No RUQ ttp Labs: Component Latest Ref Rng 07/19/2024 IgM Cardiolipin Ab <15.0 (Negative) MPL <9.4 IgG Cardiolipin Ab <15.0 (Negative) GPL <9.4 Beta 2 GP1 Ab IgG, S <15.0 (Negative) SGU <9.4 Beta 2 GP1 Ab IgM, S <15.0 (Negative) SMU <9.4 DRVVT Screen Ratio <1.20 ratio 0.90 DRVVT Interpretation SEE COMMENTS Billing Components Chart review and preparation: 10 minutes. Face to face: 10 minutes. Documentation and care coordination: 10 minutes. =-=-=-=-=-=-==-=-=-=-=- =-==-=-=-=-=-=-==-=-=-= -= Total time spent on patient care today: 30 minutes. Normal [facility] Absolute lymphocyte countOrd ered By: Peggy Sanchez on 08-01-2024 Lymphocytes Auto (Unsp spec) [#/Vol] 1.67 10*3/uL 0.83-4.[address] [facility] Absolute neutrophil countOrd ered By: Peggy Sanchez on 08-01-2024 Neutrophils (Bld) [#/Vol] 3.3 10*3/uL 2.0-7.[address] [facility] Automated lymphocyte count a s percentage of total leukocytesOrdered By: Peggy Sanchez on 08-01-2024 Lymphocytes/100 WBC Auto (Unsp spec) 31.1 % 19-[address] [facility] Basophil percentageOrdered B y: Peggy Sanchez on 08-01-2024 Basophils/100 WBC (Bld) 0.6 % 0-1 [facility] CBC W/Diff, Automatedon 07-23 Absolute Lymph 1.67 X10 3/uL Normal 0.83-4.[address] [facility] Comment on above: Performed By: #### B TSPAT, L100.0100 ####[facility] [address] [place], [address] Absolute Neut 3.3 X10 3/uL Normal 2.0-7.[address] [facility] Comment on above: Performed By: #### B TSPAT, L100.0100 ####[facility] [address] [place], [address] Basophils/100 WBC (Bld) 0.6 % Normal 0-1 [facility] Comment on above: Performed By: #### B TSPAT, L100.0100 ####[facility] [address] [place], [address] Eosinophils/100 WBC (Bld) 1.3 % Normal 0-[address] [facility] Comment on above: Performed By: #### B TSPAT, L100.0100 ####[facility] [address] [place], [address] Erythrocyte distribution width (RBC) [Ratio] 14.9 % High 11.6-14.[address] [facility] Comment on above: Performed By: #### B TSPAT, L100.0100 ####[facility] [address] [place], [address] Hematocrit (Bld) [Volume fraction] 32.5 % Low 37-[address] [facility] Comment on above: Performed By: #### B TSPAT, L100.0100 ####[facility] [address] [place], [address] Hemoglobin (Bld) [Mass/Vol] 10.0 g/dL Low 12.0-15.[address] [facility] Comment on above: Performed By: #### B TSPAT, L100.0100 ####[facility] [address] [place], [address] IG% 0.400 Normal 0.0-0.[address] [facility] Comment on above: Result Comment: IG% - Immature Granulocytes (promyelocytes, myelocytes andmetamyelocytes) > 1% indicates that a LEFT SHIFT is Present. Performed By: #### B TSPAT, L100.0100 ####[facility] [address] [place], [address] Lymphocytes/100 WBC (Bld) 31.1 % Normal 19-[address] [facility] Comment on above: Performed By: #### B TSPAT, L100.0100 ####[facility] [address] [place], [address] MCH (RBC) [Entitic mass] 22.6 pg Low 27.0-32.[address] [facility] Comment on above: Performed By: #### B TSPAT, L100.0100 ####[facility] [address] [place], [address] MCHC (RBC) [Mass/Vol] 30.8 g/dL Low 32-36 [facility] Comment on above: Performed By: #### B TSPAT, L100.0100 ####[facility] [address] [place], [address] MCV (RBC) [Entitic vol] 73.4 fL Low 81-99 [facility] Comment on above: Performed By: #### B TSPAT, L100.0100 ####[facility] [address] [place], [address] Monocytes/100 WBC (Bld) 5.4 % Normal 0-10 [facility] Comment on above: Performed By: #### B TSPAT, L100.0100 ####[facility] [address] [place], [address] Neutrophils/100 WBC (Bld) 61.2 % Normal 47-[address] [facility] Comment on above: Performed By: #### B TSPAT, L100.0100 ####[facility] [address] [place], [address] Nucleated RBC (Bld) [#/Vol] 0 10*3/uL Normal 0-[address] [facility] Comment on above: Performed By: #### B TSPAT, L100.0100 ####[facility] [address] [place], [address] Platelet mean volume (Bld) [Entitic vol] 10.8 fL Normal 6.2-12.[address] [facility] Comment on above: Performed By: #### B TSPAT, L100.0100 ####[facility] [address] [place], [address] Platelets (Bld) [#/Vol] 438 10*3/uL Normal 150-[address] [facility] Comment on above: Performed By: #### B TSPAT, L100.0100 ####[facility] [address] [place], [address] RBC (Bld) [#/Vol] 4.43 10*6/uL Normal 4.2-5.4 [facility] Comment on above: Performed By: #### B TSPAT, L100.0100 ####[facility] [address] [place], [address] RDW SD 39.8 fl Normal 35.1-43.[address] [facility] Comment on above: Performed By: #### B TSPAT, L100.0100 ####[facility] [address] [place], [address] WBC (Bld) [#/Vol] 5.4 10*3/uL Normal 4.4-11.0 [facility] Comment on above: Performed By: #### B TSPAT, L100.0100 ####[facility] [address] [place], [address] Discharge Instructionon 07-23 Discharge Instruction Normal [facility] Eosinophil percentageOrdered By: Peggy Sanchez on 08-01-2024 Eosinophils/100 WBC (Bld) 1.3 % 0-[address] [facility] Erythrocyte distribution wid th ratioOrdered By: Peggy Sanchez on 08-01-2024 Erythrocyte distribution width (RBC) [Ratio] 14.9 % High 11.6-14.[address] [facility] Erythrocyte distribution wid th standard deviationOrdered By: Peggy Sanchez on 08-01-2024 Erythrocyte distribution width (RBC) [Ratio] 39.8 fl 35.1-43.[address] [facility] H AND P Exam - OB/GYNon 07-23 H&P Exam - GROUP WORKER Normal [facility] Hematocrit Auto (Bld) [Volum e fraction]Ordered By: Peggy Sanchez on 08-01-2024 Hematocrit (Bld) [Volume fraction] 32.5 % Low 37-[address] [facility] Hemoglobin measurementOrdere d By: Peggy Sanchez on 08-01-2024 Hemoglobin (Bld) [Mass/Vol] 10.0 g/dL Low 12.0-15.[address] [facility] Immature granulocytes/100 WB C Auto (Bld)Ordered By: Peggy Sanchez on 08-01-2024 Immature granulocytes/100 WBC (Bld) 0.400 % 0.0-0.[address] [facility] Comment on above: IG% - Immature Granu locytes (promyelocytes, myelocytes and metamyelocytes) > 1% indicates that a LEFT SHIFT is Present. MCV (mean corpuscular volume ) determinationOrdered By: Peggy Sanchez on 08-01-2024 MCV (RBC) [Entitic vol] 73.4 fL Low 81-99 [facility] MR/POSTOP.ANEon 08-01-2024 MR/POSTOP.ANE Normal [facility] MR/OLFGBLLJ3tn 08-01-2024 MR/POSTOPAN2 Normal [facility] Mean corpuscular hemoglobin (MCH) determinationOrdered By: Peggy Sanchez on 08-01-2024 MCH (RBC) [Entitic mass] 22.6 pg Low 27.0-32.[address] [facility] Mean corpuscular hemoglobin concentration (MCHC) determinationOrdered By: Peggy Sanchez on 08-01-2024 MCHC (RBC) [Mass/Vol] 30.8 g/dL Low 32-36 [facility] Mean platelet volume determi nationOrdered By: Peggy Sanchez on 08-01-2024 Platelet mean volume (Bld) [Entitic vol] 10.8 fL 6.2-12.[address] [facility] Monocyte percentageOrdered B y: Peggy Sanchez on 08-01-2024 Monocytes/100 WBC (Bld) 5.4 % 0-10 [facility] Neutrophil percentageOrdered By: Peggy Sanchez on 08-01-2024 Neutrophils/100 WBC (Bld) 61.2 % 47-[address] [facility] Nucleated red blood cell per centageOrdered By: Peggy Sanchez on 08-01-2024 Nucleated RBC/100 WBC (Bld) [Ratio] 0 % 0-[address] [facility] Operative Reporton Operative Report Normal [facility] Platelet countOrdered By: Amos Sanchez on 08-01-2024 Platelets (Bld) [#/Vol] 438 10*3/uL 150-[address] [facility] RBC Auto (Bld) [#/Vol]Ordere d By: Peggy Sanchez on 08-01-2024 RBC (Bld) [#/Vol] 4.43 10*6/uL 4.2-5.4 [facility] Surgery Specimen Level Christophe 08-01-2024 Surgery Specimen Level IV Normal [facility] Comment on above: Performed By: #### P SUIV ####[facility] [address] [place], [place], [id number] Type AND Screen - PAT ONLYon 08-01-2024 ABO and Rh group Nom (Bld) Blood group B Rh(D) positive Normal [facility] Comment on above: Order Comment: Surge ry Date: 08/01/24Reason for Laboratory Test [id number] Performed By: #### B TSPAT, L100.0100 ####[facility] [address] [place], [place], [address] White blood cell (WBC) count Ordered By: Peggy Sanchez on 08-01-2024 WBC (Bld) [#/Vol] 5.4 10*3/uL 4.4-11.0 [facility] MR/PAT.ANEon 07-31-2024 MR/PAT.ANE Normal [facility] Serum human chorionic gonado tropin detection for pregnancyOrdered By: Silviano Daley on 07-29-2024 HCG ( test) Ql 1 mIU/mL <9 [facility] Comment on above: Gestational Age0.2-1 Week: 5-50 mIU/mL1-2 Weeks: 50-500 mIU/mL2-3 Weeks: 100-5000 mIU/mL3-4 Weeks: 500-10,000 mIU/mL4-5 Weeks:1000-50,000 mIU/mL5-6 Weeks: 10,000-100,000 mIU/mL6-8 Weeks: 15,000-200,000 mIU/mL2-3 Months:10,000-100,000 mIU/mL Transvaginal Non-on 07-29-2024 Transvaginal Non- Normal [facility] hCG Titer Quant., Serumon HCG QUANT. 1 mIU/mL Normal <9 non-preg [facility] Comment on above: Result Comment: Gest ational Age0.2-1 Week: 5-50 mIU/mL1-2 Weeks: 50-500 mIU/mL2-3 Weeks: 100-5000 mIU/mL3-4 Weeks: 500-10,000 mIU/mL4-5 Weeks:1000-50,000 mIU/mL5-6 Weeks: 10,000-100,000 mIU/mL6-8 Weeks: 15,000-200,000 mIU/mL2-3 Months:10,000-100,000 mIU/mL Performed By: #### L 700.5073 ####[facility] [address] [place], [place], [address] BETA 2 GLYCOPROTEIN ABSon Beta 2 GP1 Ab IgG, S <9.4 Invalid Interpretation Code <15.0 (Negative) [facility] Comment on above: Order Comment: Relea se to patient->Automatic Beta 2 GP1 Ab IgM, S <9.4 Invalid Interpretation Code <15.0 (Negative) [facility] Comment on above: Order Comment: Relea se to patient->Automatic Result Comment: Test Performed by: [place] [address] Therapeutic Sales Specialist: Katerina Pandey Ph.D.; CLIA# [id number] CARDIOLIPIN ABon 07-19-2024 IgG Phospholipid AB, S <9.4 Invalid Interpretation Code <15.0 (Negative) [facility] Comment on above: Order Comment: Relea se to patient->Automatic Result Comment: Test Performed by: [place] [address] Therapeutic Sales Specialist: Katerina Pandey Ph.D.; CLIA# [id number] IgM Phospholipid AB, S <9.4 Invalid Interpretation Code <15.0 (Negative) [facility] Comment on above: Order Comment: Relea se to patient->Automatic DILUTE RVVT SCREEN RATIO WIT H REFLEXon 07-19-2024 DRVVT Screen Ratio 0.90 ratio Invalid Interpretation Code <1.20 [facility] Comment on above: Order Comment: Relea se to patient->Automatic Result Comment: Test Performed by: [place] [address] Therapeutic Sales Specialist: Katerina Pandey Ph.D.; CLIA# [id number] DRVVT INTERPRETATION (LAB ON LY REFLEX)on 07-19-2024 DRVVT Interpretation SEE COMMENTS Invalid Interpretation Code [facility] Comment on above: Result Comment: Impr [...] (ISTH) and the Clinical and Laboratory Standards [place] (CLSI) recommend testing for lupus anticoagulant with at least two phospholipid dependent clotting time assays based on different coagulation pathways and principles (e.g. lupus-sensitive APTT, DRVVT, etc.). If clinically indicated, consider future follow up testing Coagulation Consultation 04621 (Lupus Anticoagulant Profile, ALUPP). Test Performed by: [address] [address] Therapeutic Sales Specialist: Katerina Pandey Ph.D.; CLIA# [id number] Progress Noteon 07-19-2024 C D Still Operator Authentication Interface Message Text [facility] MATERNAL- MEDICINE CONSULT Referring/Requesting Provider: Silviano Daley MD PCP: Xenia Lane PA-C INDICATION FOR CONSULT: consult for history of Sandra-en-y gastric bypass HISTORY OF PRESENT ILLNESS: Patient is a 28 y.o. [id number] presents for consultation regarding history of Sandra-en-y [...] M Vag-Spont 11 SAB 03/2020 10 IAB 2019 9 Term 05/03/18 3.062 kg F Vag-Spont [...] control symptoms. (more content not included)... Normal [facility] Absolute lymphocyte countOrd ered By: Silviano Daley on 07-04-2024 Lymphocytes Auto (Unsp spec) [#/Vol] 1.79 10*3/uL 0.83-4.[address] [facility] Absolute neutrophil countOrd ered By: Silviano Daley on 07-04-2024 Neutrophils (Bld) [#/Vol] 4.4 10*3/uL 2.0-7.[address] [facility] Automated lymphocyte count a s percentage of total leukocytesOrdered By: Silviano Daley on 07-04-2024 Lymphocytes/100 WBC Auto (Unsp spec) 26.7 % 19-[address] [facility] Basophil percentageOrdered B y: Silviano Daley on 07-04-2024 Basophils/100 WBC (Bld) 0.3 % 0-1 [facility] CBC W/Diff, Automatedon 06-22 Absolute Lymph 1.79 X10 3/uL Normal 0.83-4.[address] [facility] Comment on above: Performed By: #### L 100.0100 ####[facility] [address] [place], [address] Absolute Neut 4.4 X10 3/uL Normal 2.0-7.[address] [facility] Comment on above: Performed By: #### L 100.0100 ####[facility] [address] [place], [address] Basophils/100 WBC (Bld) 0.3 % Normal 0-1 [facility] Comment on above: Performed By: #### L 100.0100 ####[facility] [address] [place], [address] Eosinophils/100 WBC (Bld) 0.7 % Normal 0-[address] [facility] Comment on above: Performed By: #### L 100.0100 ####[facility] [address] [place], [address] Erythrocyte distribution width (RBC) [Ratio] 15.7 % High 11.6-14.[address] [facility] Comment on above: Performed By: #### L 100.0100 ####[facility] [address] [place], [address] Hematocrit (Bld) [Volume fraction] 28.3 % Low 37-[address] [facility] Comment on above: Performed By: #### L 100.0100 ####[facility] [address] [place], [address] Hemoglobin (Bld) [Mass/Vol] 8.8 g/dL Low 12.0-15.[address] [facility] Comment on above: Performed By: #### L 100.0100 ####[facility] [address] [place], [address] IG% 0.700 Normal 0.0-0.[address] [facility] Comment on above: Result Comment: IG% - Immature Granulocytes (promyelocytes, myelocytes andmetamyelocytes) > 1% indicates that a LEFT SHIFT is Present. Performed By: #### L 100.0100 ####[facility] [address] [place], [address] Lymphocytes/100 WBC (Bld) 26.7 % Normal 19-[address] [facility] Comment on above: Performed By: #### L 100.0100 ####[facility] [address] [place], [address] MCH (RBC) [Entitic mass] 24.5 pg Low 27.0-32.[address] [facility] Comment on above: Performed By: #### L 100.0100 ####[facility] [address] [place], [address] MCHC (RBC) [Mass/Vol] 31.1 g/dL Low 32-36 [facility] Comment on above: Performed By: #### L 100.0100 ####[facility] [address] [place], [address] MCV (RBC) [Entitic vol] 78.8 fL Low 81-99 [facility] Comment on above: Performed By: #### L 100.0100 ####[facility] [address] [place], [address] Monocytes/100 WBC (Bld) 6.6 % Normal 0-10 [facility] Comment on above: Performed By: #### L 100.0100 ####[facility] [address] [place], [address] Neutrophils/100 WBC (Bld) 65.0 % Normal 47-[address] [facility] Comment on above: Performed By: #### L 100.0100 ####[facility] [address] [place], [address] Nucleated RBC (Bld) [#/Vol] 0 10*3/uL Normal 0-[address] [facility] Comment on above: Performed By: #### L 100.0100 ####[facility] [address] [place], [address] Platelet mean volume (Bld) [Entitic vol] 9.9 fL Normal 6.2-12.[address] [facility] Comment on above: Performed By: #### L 100.0100 ####[facility] [address] [place], [address] Platelets (Bld) [#/Vol] 360 10*3/uL Normal 150-[address] [facility] Comment on above: Performed By: #### L 100.0100 ####[facility] [address] [place], [address] RBC (Bld) [#/Vol] 3.59 10*6/uL Low 4.2-5.4 [facility] Comment on above: Performed By: #### L 100.0100 ####[facility] [address] [place], [address] RDW SD 44.7 fl High 35.1-43.[address] [facility] Comment on above: Performed By: #### L 100.0100 ####[facility] [address] [place], [address] WBC (Bld) [#/Vol] 6.7 10*3/uL Normal 4.4-11.0 [facility] Comment on above: Performed By: #### L 100.0100 ####[facility] [address] [place], [address] Eosinophil percentageOrdered By: Silviano Daley on 07-04-2024 Eosinophils/100 WBC (Bld) 0.7 % 0-[address] [facility] Erythrocyte distribution wid th ratioOrdered By: Silviano Daley on 07-04-2024 Erythrocyte distribution width (RBC) [Ratio] 15.7 % High 11.6-14.[address] [facility] Erythrocyte distribution wid th standard deviationOrdered By: Silviano Daley on 07-04-2024 Erythrocyte distribution width (RBC) [Ratio] 44.7 fl High 35.1-43.[address] [facility] Hematocrit Auto (Bld) [Volum e fraction]Ordered By: Silviano Daley on 07-04-2024 Hematocrit (Bld) [Volume fraction] 28.3 % Low 37-[address] [facility] Hemoglobin measurementOrdere d By: Silviano Daley on 07-04-2024 Hemoglobin (Bld) [Mass/Vol] 8.8 g/dL Low 12.0-15.[address] [facility] Immature granulocytes/100 WB C Auto (Bld)Ordered By: Silviano Daley on 07-04-2024 Immature granulocytes/100 WBC (Bld) 0.700 % 0.0-0.[address] [facility] Comment on above: IG% - Immature Granu locytes (promyelocytes, myelocytes and metamyelocytes) > 1% indicates that a LEFT SHIFT is Present. MCV (mean corpuscular volume ) determinationOrdered By: Silviano Daley on 07-04-2024 MCV (RBC) [Entitic vol] 78.8 fL Low 81-99 [facility] Mean corpuscular hemoglobin (MCH) determinationOrdered By: Silviano Daley on 07-04-2024 MCH (RBC) [Entitic mass] 24.5 pg Low 27.0-32.[address] [facility] Mean corpuscular hemoglobin concentration (MCHC) determinationOrdered By: Silviano Daley on 07-04-2024 MCHC (RBC) [Mass/Vol] 31.1 g/dL Low 32-36 [facility] Mean platelet volume determi nationOrdered By: Silviano Daley on 07-04-2024 Platelet mean volume (Bld) [Entitic vol] 9.9 fL 6.2-12.[address] [facility] Monocyte percentageOrdered B y: Silviano Daley on 07-04-2024 Monocytes/100 WBC (Bld) 6.6 % 0-10 [facility] Neutrophil percentageOrdered By: Silviano Daley on 07-04-2024 Neutrophils/100 WBC (Bld) 65.0 % 47-[address] [facility] Nucleated red blood cell per centageOrdered By: Silviano Daley on 07-04-2024 Nucleated RBC/100 WBC (Bld) [Ratio] 0 % 0-[address] [facility] [employer] [facility] Visit Reporton 07-04-2024 [facility] Visit Report Normal [facility] Platelet countOrdered By: aPt Daley on 07-04-2024 Platelets (Bld) [#/Vol] 360 10*3/uL 150-[address] [facility] RBC Auto (Bld) [#/Vol]Ordere d By: Silviano Daley on 07-04-2024 RBC (Bld) [#/Vol] 3.59 10*6/uL Low 4.2-5.4 [facility] White blood cell (WBC) count Ordered By: Silviano Daley on 07-04-2024 WBC (Bld) [#/Vol] 6.7 10*3/uL 4.4-11.0 [facility] ED MED ADMINISTRATION DETAIL on 07-01-2024 ED MED ADMINISTRATION DETAIL Residential Leasing Manager Medication Administration Record [address] [address] [id number] 06/29/2024 Patient: ANNE MARIE PETERSON Sex: Female : 1995 Age: 28y MEASUREMENTS: Wt: 113.4 kg, Ht/Jorje: 66.0 in, BMI: 40.35 ALLERGIES: NSAIDS (Non-Steroidal Anti-Inflammatory Drug) Medication Ordered Medication Administration Date/Time Pitocin IVPB 20 unit 03:50 06/29 Pitocin IVPB 20 unit started at 20 [...] x1) pre-medication administration. Information reviewed with patient 06:06/29/2024 including reason for taking this medication. Verbalizes [...] Davidson R.N. Scanned 1 of 1 [facility] ED NURSES CLINICAL NOTEon ED NURSES CLINICAL NOTE Nurse Narrative Nurse Clinical Narrative [address] [place] [address] [id number] 06/29/2024 03:15:00 Patient: ANNE MARIE PETERSON Sex: [...] Pain level now 0/10. -- 03:45 06/29/24 EDT Karissa Zabala R.N. Measurements: 03:46 06/29/24 Wt: 113.4 kg, Ht/Jorje: 66.0 in, BMI: 40.35 -- 03:46 06/29/24 EDT Karissa Zabala R.N. Medications: no known home medications -- 03:41 06/29/24 EDT Karissa Zabala R.N. 1 of 4 Nurse Narrative Allergies: NSAIDS (Non-Steroidal Anti-Inflammatory Drug) -- 03:41 06/29/24 EDT Karissa Zabala R.N. Problems: Atrial Fibrillation -- 03:42 06/29/24 EDT Karissa Zabala R.N. Surgeries: Gastric Bypass -- 03:42 06/29/24 EDT Karissa Zabala R.N. Hernia Repair -- 03:42 06/29/24 EDT Karissa Zabala R.N. Cholecystectomy -- 03:42 06/29/24 EDT Karissa Zabala R.N. History 03:17 06/29/24. SOCIAL [...] is warm and dry. -- 04:32 06/29/24 EDT Babs Price R.N. NURSING PROGRESS NOTES 03:37 06/29/24. ( Bereavement nurse called, at bedside helping with fetus and mother.). -- 03:53 06/29/24 EDT Karissa Zabala R.N. 03:50 06/29/24. ( OB RN at bedside to help with bereavement care of fetus. Placenta disposed of properly by OB RN.). -- 04:46 06/29/24 EDT Babs Price R.N. 03:50 06/29/24. Pitocin IVPB 20 [...] -- 03:53 06/29/24 EDT Karissa Zabala R.N. 04:06/29/24. Patient transported to radiology by stretcher with appliance repair technician. -- 04:32 06/29/24 EDT Babs Price R.N. 06:22 06/29/24. Pitocin IVPB: Medication Discontinued. IV completed. Total amount infused: 1000 mL. IV patency established. IV site checked: no pain, redness, or swelling. IV flushed thoroughly post-medication administration. -- 06:47 06/29/24 EDT Babs Price R.N. 06:45 06/29/24. Cytotec PO 200 mcg given. Allergie (more content not included)... [facility] ED ORDER SHEET (CPOE ONLY)on 07-01-2024 ED ORDER SHEET (CPOE ONLY) Order Sheet Order Sheet [place] [id number] [facility] [place] [address] [id number] 06/29/2024 Patient: ANNE MARIE PETERSON Sex: Female [...] 06/29/2024 06:38 06:46 Jaswinder Sena, 06/29/2024 06/29/2024 DMirthaOChasity Che R.N. Reason for ordering with alerts: Benefits outweigh risks --06:35 06/29/2024 Jaswinder Sena D.O. LAB ORDERS Order Description Priority Entered Acknowledged Collected Completed CBC w Diff Stat Stat 03:24 06/29/2024 03:39 06/29/2024 03:39 06/29/2024 Karissa Elena R.N. Anne Rutt, R.N. DMirthaO. 1 of 2 Order Sheet CMP Stat Stat 03:24 06/29/2024 03:39 06/29/2024 03:39 06/29/2024 Karissa Elena R.N. Anne Rutt, R.N. D.O. DIAGNOSTIC STUDY ORDERS Order Description Priority Entered Acknowledged Completed US OB Initial >14WK 03:24 06/29/2024 Cancelled: Other Jaswinder Sena, 04:24 EDT Jaswinder Sena D.O. D.O. Order Comments: 03:23 06/29/2024: Status: Not . Jaswinder Sena D.O. Reason for Study: Pain US Pelvic Stat Stat 04:24 06/29/2024 04:35 04:35 Jaswinder Sena 06/29/2024 06/29/2024 Chasity Coker R.N. Reason for Study: Abnormal Bleeding STAFF ORDERS Order Description Priority Entered Acknowledged Collected Completed IV Saline Lock 03:24 06/29/2024 03:39 06/29/2024 03:39 06/29/2024 Karissa Elena R.N. Anne Rutt, R.N. D.O. [Electronically signed by Jaswinder Sena D.O. (07/01/2024 11:38 EDT)] 2 of 2 Normal [facility] ED PHYSICIAN CLINICAL REPORT on 07-01-2024 ED PHYSICIAN CLINICAL REPORT Narrative Physician Clinical Narrative [address] [address] [id number] 06/29/2024 03:15:00 Patient: ANNE MARIE PETERSON Sex: [...] 1.50 - 7.10 Final EDT 06/29/2024 04:00 [place] # 0.57 x10/UL 0.20 - 1.00 Final [...] 8.2 Final (more content not included)... Normal [facility] ED SUPER BILLon 07-01-2024 ED SUPER BILL [address] [place] [id number] 06/29/2024 Patient: ANNE MARIE PETERSON Sex: Female : 1995 Age: 28y Item Facility Professional Category Description Code Code Quantity Fee Total Drugs Normal Saline 498230 1 $0.00 $0.00 1000cc (022902) Nurse/E/M EMERGENCY 975333 1 $0.00 $0.00 DEPARTMENT VISIT HIGH/URGENT SEVERITY (64963-74) Nurse/IV/IM/Infusions Drip/IVPB 924740 2 $0.00 $0.00 additional hour (55338) Nurse/IV/IM/Infusions Drip/IVPB initial [id number] 1 $0.00 $0.00 (19509) Grand Total $0.00 Providers Jaswinder Sena D.O. 1 of 2 [facility] Chief Complaint VAGINAL BLEEDING and PASSING TISSUE. Principal Diagnosis Complete spontaneous (miscarriage). ICD-10 Codes O03.9: Complete or unspecified spontaneous without complication 2 of 2 [facility] ED VISIT SUMMARYon ED VISIT SUMMARY Visit Overview Visit Overview [place] [address] [place] [address] [id number] 06/29/2024 Patient: ANNE MARIE PETERSON Sex: Female [...] COMPLETE SPONTANEOUS (MISCARRIAGE) 3 of 3 [facility] ED VITALS FLOW SHEETon 07-01 ED VITALS FLOW SHEET Vitals Vital Sign Flow Sheet [facility] [address] [place] [address] [id number] 06/29/2024 Patient: ANNE MARIE PETERSON Sex: Female [...] 98.5 F 0 3 of 3 [facility] CBC + DIFFon 06-29-2024 Baso # 0.02 x10EE3/UL Normal 0.00 - 0.10 [facility] Comment on above: Performed By: #### 2 38909 #### [facility],[address] [place] [address] Basophils/100 WBC (Bld) 0.2 % Normal 0.0 - 2.0 [facility] Comment on above: Performed By: #### 2 66898 #### [facility],[address] [place] [address] CBC + DIFF Normal [facility] Comment on above: Result Comment: CBC- COMPLETE BLOOD COUNT Performed By: #### 2 86293 #### [facility],[address] [place] [address] EO # 0.06 x10EE3/UL Normal 0.00 - 0.50 [facility] Comment on above: Performed By: #### 2 51383 #### [facility],[address] [place] [address] Eosinophils/100 WBC (Bld) 0.7 % Normal 0.0 - 7.0 [facility] Comment on above: Performed By: #### 2 18374 #### [facility],[address] [place] [address] Erythrocyte distribution width (RBC) [Ratio] 16.5 % High 12.0 - 15.6 [facility] Comment on above: Performed By: #### 2 40606 #### [facility],[address] [place] [address] Hematocrit (Bld) [Volume fraction] 31.6 % Low 34.0 - 46.0 [facility] Comment on above: Performed By: #### 2 94016 #### [facility],[address] [place] [address] Hemoglobin (Bld) [Mass/Vol] 10.9 g/dL Low 12.0 - 16.0 [facility] Comment on above: Performed By: #### 2 72113 #### [facility],[address] [place] [address] 65603 Lymph # 1.25 x10EE3/UL Normal 0.80 - 2.80 [facility] Comment on above: Performed By: #### 2 65774 #### [facility],[address] [place] [address]34 Lymphocytes/100 WBC (Bld) 14.6 % Low 20.0 - 45.0 [facility] Comment on above: Performed By: #### 2 87908 #### [facility],[address] [place] [address]369 MANUAL DIFF N/A [facility] Comment on above: Performed By: #### 2 63246 #### [facility],[address] [place] [address]2782 MCH (RBC) [Entitic mass] 26 pg Low 27 - 33 [facility] Comment on above: Performed By: #### 2 61973 #### [facility],[address] [place] [address] MCHC 35 X10 3 Normal 32 - 36 [facility] Comment on above: Performed By: #### 2 18094 #### [facility],[address] [place] [address] 48647 MCV (RBC) [Entitic vol] 75 fL Low 80 - 99 [facility] Comment on above: Performed By: #### 2 21357 #### [facility],[address] [place] [address] [place] # 0.57 x10EE3/UL Normal 0.20 - 1.00 [facility] Comment on above: Performed By: #### 2 38369 #### [facility],[address] [place], [place] [address] MONOS % 6.7 % Normal 0.0 - 10.0 [facility] Comment on above: Performed By: #### 2 19333 #### [facility],[address] [place] [address] Morphology Girish (Bld) [Interp] N/A Normal [facility] Comment on above: Performed By: #### 2 10851 #### [facility],[address] [place], [place] [address] Neut # 6.67 x10EE3/UL Normal 1.50 - 7.10 [facility] Comment on above: Performed By: #### 2 06700 #### [facility],[address] [place], [place] [address] Neutrophils/100 WBC (Bld) 77.9 % High 46.0 - 76.0 [facility] Comment on above: Performed By: #### 2 05087 #### [facility],[address] [place] [address] 20715 PLATELET 256 x10EE3/UL Normal 150 - 450 [facility] Comment on above: Performed By: #### 2 47152 #### [facility],[address] [place] [address] Platelet mean volume (Bld) [Entitic vol] 9.2 fL Normal 6.6 - 10.5 [facility] Comment on above: Result Comment: AUTO MATED DIFFERENTIAL Performed By: #### 2 74373 #### [facility],[address] [place] [address] 12451 RBC 4.20 x 10EE6/UL Normal 4.10 - 5.30 [facility] Comment on above: Performed By: #### 2 72808 #### [facility],[address] [place] [address] 57888 WBC 8.6 x 10EE3/UL Normal 4.5 - 10.8 [facility] Comment on above: Performed By: #### 2 16442 #### [facility],[address] [place] [address] 30722 CMP with eGFRon 06-29-2024 AGE 28 years Normal [facility] Comment on above: Performed By: #### 2 93401 #### [facility],[address] [place] [address] 49955 Albumin [Mass/Vol] 3.1 g/dL Low 3.4 - 5.0 [facility] Comment on above: Performed By: #### 2 38485 #### [facility],[address] [place] [address] 53418 Albumin/Globulin [Mass ratio] 0.8 {ratio} Low 0.9 - 1.6 [facility] Comment on above: Performed By: #### 2 11083 #### [facility],[address] [place] [address] 48864 ALK PHOS 73 U/L Normal 46 - 116 [facility] Comment on above: Performed By: #### 2 52807 #### [facility],[address] [place] [address] 62724 ALT [Catalytic activity/Vol] 40 U/L Normal 16 - 63 [facility] Comment on above: Performed By: #### 2 67225 #### [facility],[address] [place] [address] 11553 Anion gap [Moles/Vol] 14 mmol/L Normal 10 - 20 [facility] Comment on above: Performed By: #### 2 90980 #### [facility],[address] [place] [address] 42590 AST [Catalytic activity/Vol] 27 U/L Normal 13 - 39 [facility] Comment on above: Performed By: #### 2 14500 #### [facility],[address] [place] [address] 63858 B/C RATIO 9 ratio Normal 0 - 30 [facility] Comment on above: Performed By: #### 2 74595 #### [facility],[address] [place] [address] 22823 Bilirubin [Mass/Vol] 0.4 mg/dL Normal 0.2 - 1.0 [facility] Comment on above: Performed By: #### 2 26141 #### [facility],[address] [place] [address] 92188 Calcium [Mass/Vol] 9.0 mg/dL Normal 8.5 - 10.1 [facility] Comment on above: Performed By: #### 2 04470 #### [facility],[address] [place] [address] 05371 Chloride [Moles/Vol] 106 mmol/L Normal 98 - 107 [facility] Comment on above: Performed By: #### 2 39650 #### [facility],[address] [place] [address] 47603 CMP with eGFR Normal [facility] Comment on above: Result Comment: COMP REHENSIVE METABOLIC PANEL Performed By: #### 2 64111 #### [facility],[address] [place] [address] 72628 CO2 [Moles/Vol] 24.0 mmol/L Normal 21.0 - 32.0 [facility] Comment on above: Performed By: #### 2 71220 #### [facility],[address] [place] [address] 14242 Creatinine [Mass/Vol] 0.65 mg/dL Normal 0.55 - 1.02 [facility] Comment on above: Performed By: #### 2 14847 #### [facility],[address] [place] [address] 32296 GFR/1.73 sq M.predicted among non-blacks MDRD (S/P/Bld) [Vol rate/Area] mL/min/{1.73_m2} Normal 60 - 999 [facility] Comment on above: Performed By: #### 2 35047 #### [facility],[address] [place], [place] [address] Result Comment: ACCO RDING TO THE NATIONAL KIDNEY DISEASE EDUCATION PROGRAM(NKDE), A NORMAL eGFR IS A VALUE GREATER THAN OR EQUAL TO 60 ML/MIN/1.73 SQ METERS. CHRONIC KIDNEY DISEASE: <60mL/MIN/1.73 SQ METERS KIDNEY FAILURE: <15mL/MIN/1.73 SQ METERS THIS TEST SHOULD ONLY BE USED FOR PATIENTS 18 YEARS OF AGE AND OLDER. Globulin (S) [Mass/Vol] 4.0 g/dL High 1.5 - 3.8 [facility] Comment on above: Performed By: #### 2 53774 #### [facility],[address] [place] [address] 52951 Glucose [Mass/Vol] 95 mg/dL Normal 74 - 106 [facility] Comment on above: Performed By: #### 2 59117 #### [facility],[address] [place] [address] 90040 Potassium [Moles/Vol] 3.4 mmol/L Low 3.5 - 5.1 [facility] Comment on above: Performed By: #### 2 40148 #### [address] [address] Protein [Mass/Vol] 7.1 g/dL Normal 6.4 - 8.2 [facility] Comment on above: Performed By: #### 2 98655 #### [facility],[address] [place] [address] 21068 Sodium [Moles/Vol] 141 mmol/L Normal 136 - 145 [facility] Comment on above: Performed By: #### 2 43203 #### [facility],[address] [place] [address] 49178 Urea nitrogen [Mass/Vol] 6 mg/dL Low 7 - 18 [facility] Comment on above: Performed By: #### 2 21886 #### [facility],[address] [place] [address] 45337 OB Triage Progress Noteon OB Triage Progress Note Normal [facility] PELVIC 06-29-2024 [place] [address] Patient: ANNE MARIE PETERSON Phone#: : 1995 Age: 28 Gender: F Pt. Type: ER Account: [id number] Location: [facility] Ordering: JASWINDER SENA Exam Date: 06/29/2024/4:22 Family Phys: XENIA DOLTON Charge Code: 012734 Physician: Ashe Order #: [id number] Dose#: PROCEDURE: PELVIC ULTRASOUND, TRANSABDOMINAL COMPARISON: None. [...] Anderson MD on 06/29/2024 at 8:51 Normal [facility] Absolute lymphocyte countOrd ered By: Silviano Daley on 06-28-2024 Lymphocytes Auto (Unsp spec) [#/Vol] 1.00 10*3/uL 0.83-4.[address] [facility] Absolute neutrophil countOrd ered By: Silviano Daley on 06-28-2024 Neutrophils (Bld) [#/Vol] 3.8 10*3/uL 2.0-7.[address] [facility] Automated lymphocyte count a s percentage of total leukocytesOrdered By: Silviano Daley on 06-28-2024 Lymphocytes/100 WBC Auto (Unsp spec) 19.2 % 19-[address] [facility] Basic Metabolic Profile (BMP )on 06-28-2024 BUN/CRE 12.2 RATIO Normal 10-[address] [facility] Comment on above: Performed By: #### L 300.3900, L700.8000, L100.0100, L300.4310, L500.2500 ####[facility] [address] [place], [address] Calcium [Mass/Vol] 8.3 mg/dL Normal 7.6-11.0 [facility] Comment on above: Performed By: #### L 300.3900, L700.8000, L100.0100, L300.4310, L500.2500 ####[facility] [address] [place], [address] Chloride [Moles/Vol] 105 mmol/L Normal 98-108 [facility] Comment on above: Performed By: #### L 300.3900, L700.8000, L100.0100, L300.4310, L500.2500 ####[facility] [address] [place], [address] CO2 [Moles/Vol] 22.0 mmol/L Normal 21.0-32.[address] [facility] Comment on above: Performed By: #### L 300.3900, L700.8000, L100.0100, L300.4310, L500.2500 ####[facility] [address] [place], [address] Creatinine [Mass/Vol] 0.58 mg/dL Low 0.70-1.20 [facility] Comment on above: Performed By: #### L 300.3900, L700.8000, L100.0100, L300.4310, L500.2500 ####[facility] [address] [place], [address] ECRCL 186.50 ml/min Normal 50-[address] [facility] Comment on above: Performed By: #### L 300.3900, L700.8000, L100.0100, L300.4310, L500.2500 ####[facility] [address] [place], [address] GAP 8 Normal 5-[address] [facility] Comment on above: Performed By: #### L 300.3900, L700.8000, L100.0100, L300.4310, L500.2500 ####[facility] [address] [place], [address] GFR/1.73 sq M.predicted among non-blacks MDRD (S/P/Bld) [Vol rate/Area] 126 mL/min/{1.73_m2} Normal >[address] [facility] Comment on above: Result Comment: mL/m in/1.73m2 CKD-EPI Creatinine Equation (2020) Performed By: #### L 300.3900, L700.8000, L100.0100, L300.4310, L500.2500 ####[facility] [address] [place], [address] Glucose [Mass/Vol] 102 mg/dL High 70-99 [facility] Comment on above: Performed By: #### L 300.3900, L700.8000, L100.0100, L300.4310, L500.2500 ####[facility] [address] [place], [address] Potassium [Moles/Vol] 3.4 mmol/L Normal 3.3-5.1 [facility] Comment on above: Performed By: #### L 300.3900, L700.8000, L100.0100, L300.4310, L500.2500 ####[facility] [address] [place], [address] Sodium [Moles/Vol] 134 mmol/L Normal 133-145 [facility] Comment on above: Performed By: #### L 300.3900, L700.8000, L100.0100, L300.4310, L500.2500 ####[facility] [address] [place], [address] Urea nitrogen [Mass/Vol] 7 mg/dL Normal 4-[address] [facility] Comment on above: Performed By: #### L 300.3900, L700.8000, L100.0100, L300.4310, L500.2500 ####[facility] [address] [place], [address] Basophil percentageOrdered B y: Silviano Daley on 06-28-2024 Basophils/100 WBC (Bld) 0.2 % 0-1 [facility] CBC W/Diff, Automatedon Absolute Lymph 1.00 X10 3/uL Normal 0.83-4.[address] [facility] Comment on above: Performed By: #### L 100.0100 ####[facility] [address] [place], [address] Absolute Neut 3.8 X10 3/uL Normal 2.0-7.[address] [facility] Comment on above: Performed By: #### L 100.0100 ####[facility] [address] [place], [address] Basophils/100 WBC (Bld) 0.2 % Normal 0-1 [facility] Comment on above: Performed By: #### L 100.0100 ####[facility] [address] [place], [address] Eosinophils/100 WBC (Bld) 0.4 % Normal 0-[address] [facility] Comment on above: Performed By: #### L 100.0100 ####[facility] [address] [place], [address] Erythrocyte distribution width (RBC) [Ratio] 16.1 % High 11.6-14.[address] [facility] Comment on above: Performed By: #### L 100.0100 ####[facility] [address] [place], [address] Hematocrit (Bld) [Volume fraction] 28.3 % Low 37-[address] [facility] Comment on above: Performed By: #### L 100.0100 ####[facility] [address] [place], [address] Hemoglobin (Bld) [Mass/Vol] 9.3 g/dL Low 12.0-15.[address] [facility] Comment on above: Performed By: #### L 100.0100 ####[facility] [address] [place], [address] IG% 0.400 Normal 0.0-0.[address] [facility] Comment on above: Result Comment: IG% - Immature Granulocytes (promyelocytes, myelocytes andmetamyelocytes) > 1% indicates that a LEFT SHIFT is Present. Performed By: #### L 100.0100 ####[facility] [address] [place], [address] Lymphocytes/100 WBC (Bld) 19.2 % Normal 19-[address] [facility] Comment on above: Performed By: #### L 100.0100 ####[facility] [address] [place], [address] MCH (RBC) [Entitic mass] 24.7 pg Low 27.0-32.[address] [facility] Comment on above: Performed By: #### L 100.0100 ####[facility] [address] [place], [address] MCHC (RBC) [Mass/Vol] 32.9 g/dL Normal 32-36 [facility] Comment on above: Performed By: #### L 100.0100 ####[facility] [address] [place], [address] MCV (RBC) [Entitic vol] 75.3 fL Low 81-99 [facility] Comment on above: Performed By: #### L 100.0100 ####[facility] [address] [place], [address] Monocytes/100 WBC (Bld) 6.2 % Normal 0-10 [facility] Comment on above: Performed By: #### L 100.0100 ####[facility] [address] [place], [address] Neutrophils/100 WBC (Bld) 73.6 % High 47-[address] [facility] Comment on above: Performed By: #### L 100.0100 ####[facility] [address] [place], [address] Nucleated RBC (Bld) [#/Vol] 0 10*3/uL Normal 0-[address] [facility] Comment on above: Performed By: #### L 100.0100 ####[facility] [address] [place], [address] Platelet mean volume (Bld) [Entitic vol] 10.6 fL Normal 6.2-12.[address] [facility] Comment on above: Performed By: #### L 100.0100 ####[facility] [address] [place], [address] Platelets (Bld) [#/Vol] 212 10*3/uL Normal 150-[address] [facility] Comment on above: Performed By: #### L 100.0100 ####[facility] [address] [place], [address] RBC (Bld) [#/Vol] 3.76 10*6/uL Low 4.2-5.4 [facility] Comment on above: Performed By: #### L 100.0100 ####[facility] [address] [place], [address] RDW SD 44.6 fl High 35.1-43.[address] [facility] Comment on above: Performed By: #### L 100.0100 ####[facility] [address] [place], [address] WBC (Bld) [#/Vol] 5.2 10*3/uL Normal 4.4-11.0 [facility] Comment on above: Performed By: #### L 100.0100 ####[facility] [address] [place], [address] Absolute Lymph 0.63 X10 3/uL Low 0.83-4.[address] [facility] Comment on above: Performed By: #### L 300.3900, L700.8000, L100.0100, L300.4310, L500.2500 ####[facility] [address] [place], [address] Absolute Neut 4.6 X10 3/uL Normal 2.0-7.[address] [facility] Comment on above: Performed By: #### L 300.3900, L700.8000, L100.0100, L300.4310, L500.2500 ####[facility] [address] [place], [address] Basophils/100 WBC (Bld) 0.2 % Normal 0-1 [facility] Comment on above: Performed By: #### L 300.3900, L700.8000, L100.0100, L300.4310, L500.2500 ####[facility] [address] [place], [address] Eosinophils/100 WBC (Bld) 0.2 % Normal 0-[address] [facility] Comment on above: Performed By: #### L 300.3900, L700.8000, L100.0100, L300.4310, L500.2500 ####[facility] [address] [place], [address] Erythrocyte distribution width (RBC) [Ratio] 15.9 % High 11.6-14.[address] [facility] Comment on above: Performed By: #### L 300.3900, L700.8000, L100.0100, L300.4310, L500.2500 ####[facility] [address] [place], [address] Hematocrit (Bld) [Volume fraction] 30.2 % Low 37-[address] [facility] Comment on above: Performed By: #### L 300.3900, L700.8000, L100.0100, L300.4310, L500.2500 ####[facility] [address] [place], [address] Hemoglobin (Bld) [Mass/Vol] 9.9 g/dL Low 12.0-15.[address] [facility] Comment on above: Performed By: #### L 300.3900, L700.8000, L100.0100, L300.4310, L500.2500 ####[facility] [address] [place], [address] IG% 0.200 Normal 0.0-0.[address] [facility] Comment on above: Result Comment: IG% - Immature Granulocytes (promyelocytes, myelocytes andmetamyelocytes) > 1% indicates that a LEFT SHIFT is Present. Performed By: #### L 300.3900, L700.8000, L100.0100, L300.4310, L500.2500 ####[facility] [address] [place], [address] Lymphocytes/100 WBC (Bld) 11.3 % Low 19-[address] [facility] Comment on above: Performed By: #### L 300.3900, L700.8000, L100.0100, L300.4310, L500.2500 ####[facility] [address] [place], [address] MCH (RBC) [Entitic mass] 25.1 pg Low 27.0-32.[address] [facility] Comment on above: Performed By: #### L 300.3900, L700.8000, L100.0100, L300.4310, L500.2500 ####[facility] [address] [place], [address] MCHC (RBC) [Mass/Vol] 32.8 g/dL Normal 32-36 [facility] Comment on above: Performed By: #### L 300.3900, L700.8000, L100.0100, L300.4310, L500.2500 ####[facility] [address] [place], [address] MCV (RBC) [Entitic vol] 76.6 fL Low 81-99 [facility] Comment on above: Performed By: #### L 300.3900, L700.8000, L100.0100, L300.4310, L500.2500 ####[facility] [address] [place], [address] Monocytes/100 WBC (Bld) 5.0 % Normal 0-10 [facility] Comment on above: Performed By: #### L 300.3900, L700.8000, L100.0100, L300.4310, L500.2500 ####[facility] [address] [place], [address] Neutrophils/100 WBC (Bld) 83.1 % High 47-[address] [facility] Comment on above: Performed By: #### L 300.3900, L700.8000, L100.0100, L300.4310, L500.2500 ####[facility] [address] [place], [address] Nucleated RBC (Bld) [#/Vol] 0 10*3/uL Normal 0-[address] [facility] Comment on above: Performed By: #### L 300.3900, L700.8000, L100.0100, L300.4310, L500.2500 ####[facility] [address] [place], [address] Platelet mean volume (Bld) [Entitic vol] 10.5 fL Normal 6.2-12.[address] [facility] Comment on above: Performed By: #### L 300.3900, L700.8000, L100.0100, L300.4310, L500.2500 ####[facility] [address] [place], [address] Platelets (Bld) [#/Vol] 203 10*3/uL Normal 150-[address] [facility] Comment on above: Performed By: #### L 300.3900, L700.8000, L100.0100, L300.4310, L500.2500 ####[facility] [address] [place], [address] RBC (Bld) [#/Vol] 3.94 10*6/uL Low 4.2-5.4 [facility] Comment on above: Performed By: #### L 300.3900, L700.8000, L100.0100, L300.4310, L500.2500 ####[facility] [address] [place], [place], [phone] RDW SD 43.6 fl Normal 35.1-43.[address] [facility] Comment on above: Performed By: #### L 300.3900, L700.8000, L100.0100, L300.4310, L500.2500 ####[facility] [address] [place], [place], [phone] WBC (Bld) [#/Vol] 5.6 10*3/uL Normal 4.4-11.0 [facility] Comment on above: Performed By: #### L 300.3900, L700.8000, L100.0100, L300.4310, L500.2500 ####[facility] [address] [place], [place], [id number] Emergency Department Summary on 06-28-2024 Emergency Department Summary Normal [facility] Eosinophil percentageOrdered By: Silviano Daley on 06-28-2024 Eosinophils/100 WBC (Bld) 0.4 % 0-[address] [facility] Erythrocyte distribution wid th ratioOrdered By: Silviano Daley on 06-28-2024 Erythrocyte distribution width (RBC) [Ratio] 16.1 % High 11.6-14.[address] [facility] Erythrocyte distribution wid th standard deviationOrdered By: Silviano Daley on 06-28-2024 Erythrocyte distribution width (RBC) [Ratio] 44.6 fl High 35.1-43.[address] [facility] Hematocrit Auto (Bld) [Volum e fraction]Ordered By: Silviano Daley on 06-28-2024 Hematocrit (Bld) [Volume fraction] 28.3 % Low 37-[address] [facility] Hemoglobin measurementOrdere d By: Silviano Daley on 06-28-2024 Hemoglobin (Bld) [Mass/Vol] 9.3 g/dL Low 12.0-15.[address] [facility] Immature granulocytes/100 WB C Auto (Bld)Ordered By: Silviano Daley on 06-28-2024 Immature granulocytes/100 WBC (Bld) 0.400 % 0.0-0.[address] [facility] Comment on above: IG% - Immature Granu locytes (promyelocytes, myelocytes and metamyelocytes) > 1% indicates that a LEFT SHIFT is Present. MCV (mean corpuscular volume ) determinationOrdered By: Silviano Daley on 06-28-2024 MCV (RBC) [Entitic vol] 75.3 fL Low 81-99 [facility] Mean corpuscular hemoglobin (MCH) determinationOrdered By: Silviano Daley on 06-28-2024 MCH (RBC) [Entitic mass] 24.7 pg Low 27.0-32.[address] [facility] Mean corpuscular hemoglobin concentration (MCHC) determinationOrdered By: Silviano Daley on 06-28-2024 MCHC (RBC) [Mass/Vol] 32.9 g/dL 32-36 [facility] Mean platelet volume determi nationOrdered By: Silviano Daley on 06-28-2024 Platelet mean volume (Bld) [Entitic vol] 10.6 fL 6.2-12.[address] [facility] Monocyte percentageOrdered B y: Silviano Daley on 06-28-2024 Monocytes/100 WBC (Bld) 6.2 % 0-10 [facility] Neutrophil percentageOrdered By: Silviano Daley on 06-28-2024 Neutrophils/100 WBC (Bld) 73.6 % High 47-[address] [facility] Nucleated red blood cell per centageOrdered By: Silviano Daley on 06-28-2024 Nucleated RBC/100 WBC (Bld) [Ratio] 0 % 0-[address] [facility] Partial Thromboplast Timeon 06-28-2024 aPTT Coag (Bld) [Time] 30.9 s Normal 24.1-36.2 [facility] Comment on above: Performed By: #### L 300.3900, L700.8000, L100.0100, L300.4310, L500.2500 ####[facility] [address] [place], [address] Platelet countOrdered By: Pat Daley on 06-28-2024 Platelets (Bld) [#/Vol] 212 10*3/uL 150-[address] [facility] Prothrombin Time w/INRon INR Coag (PPP) [Relative time] 1.1 {INR} Normal [facility] Comment on above: Performed By: #### L 300.3900, L700.8000, L100.0100, L300.4310, L500.2500 ####[facility] [address] [place], [address] PT Coag (PPP) [Time] 14.0 s Normal 11.7-14.9 [facility] Comment on above: Performed By: #### L 300.3900, L700.8000, L100.0100, L300.4310, L500.2500 ####[facility] [address] [place], [address] RBC Auto (Bld) [#/Vol]Ordere d By: Silviano Daley on 06-28-2024 RBC (Bld) [#/Vol] 3.76 10*6/uL Low 4.2-5.4 [facility] Transvaginal w/Preg USon Transvaginal w/Preg US Normal [facility] Type AND Screenon 06-28-2024 Ab SCREEN GEL Negative Normal [facility] Comment on above: Order Comment: Has p t arrived? Ybleeding Performed By: #### B TS ####[facility] [address] [place], [place], [phone] ABO and Rh group Nom (Bld) Blood group B Rh(D) positive [facility] Comment on above: Order Comment: Has p t arrived? Ybleeding Performed By: #### B TS ####[facility] [address] [place], [place], [phone] White blood cell (WBC) count Ordered By: Silviano Daley on 06-28-2024 WBC (Bld) [#/Vol] 5.2 10*3/uL 4.4-11.0 [facility] hCG Titer Quant.Grazyna HCG QUANT. 64472 mIU/mL High <9 non-preg [facility] Comment on above: Result Comment: Gest ational Age0.2-1 Week: 5-50 mIU/mL1-2 Weeks: 50-500 mIU/mL2-3 Weeks: 100-5000 mIU/mL3-4 Weeks: 500-10,000 mIU/mL4-5 Weeks:1000-50,000 mIU/mL5-6 Weeks: 10,000-100,000 mIU/mL6-8 Weeks: 15,000-200,000 mIU/mL2-3 Months:10,000-100,000 mIU/mL Performed By: #### L 300.3900, L700.8000, L100.0100, L300.4310, L500.2500 ####[facility] [address] [place], [address] Absolute lymphocyte countOrd ered By: Pancho Gagnon on 06-27-2024 Lymphocytes Auto (Unsp spec) [#/Vol] 0.63 10*3/uL Low 0.83-4.[address] [facility] Absolute neutrophil countOrd ered By: Pancho Gagnon on 06-27-2024 Neutrophils (Bld) [#/Vol] 4.6 10*3/uL 2.0-7.[address] [facility] Activated partial thrombopla stin time (aPTT) in platelet poor plasma by coagulation aOrdered By: Pancho Gagnon on 06-27-2024 aPTT Coag (PPP) [Time] 30.9 s 24.1-36.2 [facility] Anion gap in Serum or Plasma Ordered By: Pancho Gagnon on 06-27-2024 Anion gap [Moles/Vol] 8 mmol/L 5-15 [facility] Automated lymphocyte count a s percentage of total leukocytesOrdered By: Pancho Gagnon on 06-27-2024 Lymphocytes/100 WBC Auto (Unsp spec) 11.3 % Low 19-[address] [facility] BUN/creatinine ratioOrdered By: Pancho Gagnon on 06-27-2024 Urea nitrogen/Creatinine [Mass ratio] 12.2 mg/mg 10-[address] [facility] Basophil percentageOrdered B y: Pancho Gagnon on 06-27-2024 Basophils/100 WBC (Bld) 0.2 % 0-1 [facility] Carbon dioxide, total [Moles /volume] in Central venous bloodOrdered By: Pnacho Gagnon on 06-27-2024 CO2 [Moles/Vol] 22.0 mmol/L 21.0-32.[address] [facility] Chloride assayOrdered By: Sylvie Gagnon on 06-27-2024 Chloride [Moles/Vol] 105 mmol/L 98-108 [facility] Eosinophil percentageOrdered By: Pancho Gagnon on 06-27-2024 Eosinophils/100 WBC (Bld) 0.2 % 0-[address] [facility] Erythrocyte distribution wid th (RBC) [Ratio]Ordered By: Pancho Gagnon on 06-27-2024 Erythrocyte distribution width (RBC) [Entitic vol] 43.6 fL 35.1-43.[address] [facility] Erythrocyte distribution wid th ratioOrdered By: Pancho Gagnon on 06-27-2024 Erythrocyte distribution width (RBC) [Ratio] 15.9 % High 11.6-14.[address] [facility] Erythrocyte distribution wid th standard deviationOrdered By: Pancho Gagnon on 06-27-2024 Erythrocyte distribution width (RBC) [Ratio] 43.6 fl 35.1-43.[address] [facility] Estimation of creatinine scar aranceOrdered By: Pancho Gagnon on 06-27-2024 Estimated Creatinine Clearance Calc 186.50 ml/min 50-[address] [facility] GFR/1.73 sq M.predicted miryam g non-blacks MDRD (S/P/Bld) [Vol rate/Area]Ordered By: Pancho Gagnon on 06-27-2024 Estimated GFR (MDRD) Non-Af Amer [address] >[address] [facility] Comment on above: mL/min/1.73m2 CKD-EP I Creatinine Equation (2020) Glomerular filtration rate ( GFR) estimation/1.73 sq m using serum, plasma, or whole bOrdered By: Pancho Gagnon on 06-27-2024 GFR/1.73 sq M.predicted among non-blacks MDRD (S/P/Bld) [Vol rate/Area] 126 mL/min/{1.73_m2} >[address] [facility] Comment on above: mL/min/1.73m2 CKD-EP I Creatinine Equation (2020) HCG ( test) QlOrder ed By: Pancho Gagnon on 06-27-2024 Human Chorionic Gonadotropin, Quant 70833 mIU/mL High <[address] [facility] Comment on above: Gestational Age0.2-1 Week: 5-50 mIU/mL1-2 Weeks: 50-500 mIU/mL2-3 Weeks: 100-5000 mIU/mL3-4 Weeks: 500-10,000 mIU/mL4-5 Weeks:1000-50,000 mIU/mL5-6 Weeks: 10,000-100,000 mIU/mL6-8 Weeks: 15,000-200,000 mIU/mL2-3 Months:10,000-100,000 mIU/mL Hematocrit Auto (Bld) [Volum e fraction]Ordered By: Pancho Gagnon on 06-27-2024 Hematocrit (Bld) [Volume fraction] 30.2 % Low 37-[address] [facility] Hemoglobin measurementOrdere d By: Pancho Gagnon on 06-27-2024 Hemoglobin (Bld) [Mass/Vol] 9.9 g/dL Low 12.0-15.[address] [facility] Immature granulocytes/100 WB C Auto (Bld)Ordered By: Pancho Gagnon on 06-27-2024 Immature granulocytes/100 WBC (Bld) 0.200 % 0.0-0.[address] [facility] Comment on above: IG% - Immature Granu locytes (promyelocytes, myelocytes and metamyelocytes) > 1% indicates that a LEFT SHIFT is Present. International normalized rat io (INR) calculationOrdered By: Pancho Gagnon on 06-27-2024 INR Coag (Bld) [Relative time] 1.1 {INR} [facility] Lymphocytes Auto (Unsp spec) [#/Vol]Ordered By: Pancho Gagnon on 06-27-2024 Lymphocytes (Bld) [#/Vol] 0.63 10*3/uL Low 0.83-4.[address] [facility] Lymphocytes/100 WBC Auto (Un sp spec)Ordered By: Pancho Gagnon on 06-27-2024 Lymphocytes/100 WBC (Bld) 11.3 % Low 19-[address] [facility] MCV (mean corpuscular volume ) determinationOrdered By: Pancho Gagnon on 06-27-2024 MCV (RBC) [Entitic vol] 76.6 fL Low 81-99 [facility] Mean corpuscular hemoglobin (MCH) determinationOrdered By: Pancho Gagnon on 06-27-2024 MCH (RBC) [Entitic mass] 25.1 pg Low 27.0-32.[address] [facility] Mean corpuscular hemoglobin concentration (MCHC) determinationOrdered By: Pancho Gagnon on 06-27-2024 MCHC (RBC) [Mass/Vol] 32.8 g/dL 32-36 [facility] Mean platelet volume determi nationOrdered By: Pancho Gagnon on 06-27-2024 Platelet mean volume (Bld) [Entitic vol] 10.5 fL 6.2-12.[address] [facility] Monocyte percentageOrdered B y: Pancho Gagnon on 06-27-2024 Monocytes/100 WBC (Bld) 5.0 % 0-10 [facility] Neutrophil percentageOrdered By: Pancho Gagnon on 06-27-2024 Neutrophils/100 WBC (Bld) 83.1 % High 47-[address] [facility] Nucleated red blood cell per centageOrdered By: Pancho Gagnon on 06-27-2024 Nucleated RBC/100 WBC (Bld) [Ratio] 0 % 0-[address] [facility] [employer] [facility] Visit Reporton 06-27-2024 [facility] Visit Report Normal [facility] Platelet countOrdered By: Sylvie Gagnon on 06-27-2024 Platelets (Bld) [#/Vol] 203 10*3/uL 150-[address] [facility] Potassium (Unsp spec) [Mass/ Vol]Ordered By: Pancho Gagnon on 06-27-2024 Potassium [Moles/Vol] 3.4 mmol/L 3.3-5.1 [facility] Potassium measurement (mass/ volume)Ordered By: Pancho Gagnon on 06-27-2024 Potassium (Unsp spec) [Mass/Vol] 3.4 mmol/L 3.3-5.[address] [facility] Prothrombin timeOrdered By: Pancho Gagnon on 06-27-2024 PT Coag (PPP) [Time] 14.0 s 11.7-14.9 [facility] RBC Auto (Bld) [#/Vol]Ordere d By: Pancho Gagnon on 06-27-2024 RBC (Bld) [#/Vol] 3.94 10*6/uL Low 4.2-5.4 [facility] Serum creatinine measurement (mass/volume)Ordered By: Pancho Gagnon on 06-27-2024 Creatinine [Mass/Vol] 0.58 mg/dL Low 0.70-1.20 [facility] Serum glucose measurement (m ass/volume)Ordered By: Pancho Gagnon on 06-27-2024 Glucose [Mass/Vol] 102 mg/dL High 70-99 [facility] Serum human chorionic gonado tropin detection for pregnancyOrdered By: Pancho Gagnon on 06-27-2024 HCG ( [place]l [address] mIU/mL High <[address] [facility] Comment on above: Gestational Age0.2-1 Week: 5-50 mIU/mL1-2 Weeks: 50-500 mIU/mL2-3 Weeks: 100-5000 mIU/mL3-4 Weeks: 500-10,000 mIU/mL4-5 Weeks:1000-50,000 mIU/mL5-6 Weeks: 10,000-100,000 mIU/mL6-8 Weeks: 15,000-200,000 mIU/mL2-3 Months:10,000-100,000 mIU/mL Serum or plasma calcium janette urement (mass/volume)Ordered By: Pancho Gagnon on 06-27-2024 Calcium [Mass/Vol] 8.3 mg/dL 7.6-11.0 [facility] Serum or plasma urea nitroge n measurement (mass/volume)Ordered By: Pancho Gagnon on 06-27-2024 Urea nitrogen [Mass/Vol] 7 mg/dL 4-[address] [facility] Sodium levelOrdered By: Sam Gagnon on 06-27-2024 Sodium [Moles/Vol] 134 mmol/L 133-145 [facility] White blood cell (WBC) count Ordered By: Pancho Gagnon on 06-27-2024 WBC (Bld) [#/Vol] 5.6 10*3/uL 4.4-11.0 [facility] aPTT Coag (PPP) [Time]Ordere d By: Pancho Gagnon on 06-27-2024 aPTT Coag (Bld) [Time] 30.9 s 24.1-36.2 [facility] - Chemistry and C hemistry - challengeOrdered By: Peggy Sanchez on 06-19-2024 Glucose Ql (U) Negative [facility] Laboratory - UrinalysisOrder ed By: Peggy Sanchez on 06-19-2024 Protein Ql (U) Negative [facility] Visit Reporton 06-19-2024 [facility] Visit Report Normal [facility] Emergency Department Summary on 06-17-2024 Emergency Department Summary Normal [facility] Bacteria LM.HPF (Urine sed) [#/Area]Ordered By: Jay Liu on 06-16-2024 Urine Bacteria RARE /hpf None Seen [facility] Bilirubin Test strip Ql (U)O rdered By: Jay Liu on 06-16-2024 Bilirubin Ql (U) Negative Negative [facility] Epithelial cells.squamous LM Ql (Urine sed)Ordered By: Jay Liu on 06-16-2024 Epithelial cells.squamous LM.HPF (Urine sed) [#/Area] 0 /[HPF] 5-[address] [facility] Glucose Ql (U)Ordered By: Jeffrey Liu on 06-16-2024 Urine Glucose (UA) Normal mg/dl Normal [facility] Ketones Test strip Ql (U)Ord ered By: Jay Liu on 06-16-2024 Ketones Ql (U) 5 mg/dl High Negative [facility] Microscopic analysis of urin e for red blood cells (RBC)Ordered By: Jay Liu on 06-16-2024 Microscopic analysis of urine for red blood cells (RBC) 25-50 SEEN /hpf 0-[address] [facility] Urine RBC 25-50 SEEN /hpf 0-[address] [facility] Mucus LM Ql (Urine sed)Order ed By: Jay Liu on 06-16-2024 Mucus Ql (Urine sed) 0 SEEN /hpf [facility] Nitrite Test strip Ql (U)Ord ered By: Jay Liu on 06-16-2024 Nitrite Ql (U) Negative Negative [facility] Protein Test strip Ql (U)Ord ered By: Jay Liu on 06-16-2024 Protein Ql (U) 30 mg/dl High Negative [facility] Squamous epithelial cells de tection in urine sediment by light microscopyOrdered By: Jay Liu on 06-16-2024 Epithelial cells.squamous LM Ql (Urine sed) 0-5 SEEN /hpf 5-[address] [facility] URINE CULTURE [CCL]on 2024 Bacteria identified Cx Nom (U) URCUL See Results Below See Below CULTURE, URINE MIXED MICROBIOTA >=100,000 CFU/ml Mixed microbiota No further workup. Mixed microbiota can be due to???urine???contaminat ion with s llection technique or straight catheterization for???urine???collectio n. SOURCE: Urine (Nonspecific) [facility] [address] [place] [address] Kishore Mcdaniels III, M.D. [id number] SEND TO IC NO Normal [facility] Comment on above: Performed By: #### 2 [id number] #### [facility],[address] [place] [address] Urinalysis, Completeon 06-16 BACTERIA RARE Normal None Seen [facility] Comment on above: Order Comment: NOLVIA ALICEA TO SPECIFY Performed By: #### L 400.0001 ####[facility] [address] [place], [place], [phone] EPI,SQUAMOUS 0-5 SEEN Normal 5-[address] [facility] Comment on above: Order Comment: NOLVIA ALICEA TO SPECIFY Performed By: #### L 400.0001 ####[facility] [address] [place], [place], [phone] RBC 25-50 SEEN Normal 0-[address] [facility] Comment on above: Order Comment: NOLVIA CTOR TO SPECIFY Performed By: #### L 400.0001 ####[facility] [address] [place], [place], [phone] WBC 0-5 SEEN Normal 0-[address] [facility] Comment on above: Order Comment: NOLVIA CTOR TO SPECIFY Performed By: #### L 400.0001 ####[facility] [address] [place], [place], [phone] Mucus Ql (Urine sed) 0 SEEN Normal [facility] Comment on above: Order Comment: NOLVIA CTOR TO SPECIFY Performed By: #### L 400.0001 ####[facility] [address] [place], [place], [phone] Urine blood detectionOrdered By: Jay Liu on 06-16-2024 Urine Occult Blood 250 /ul High Negative [facility] Urine clarityOrdered By: Chet Liu on 06-16-2024 Clarity (U) Clear Clear [facility] Urine color determinationOrd ered By: Jay Liu on 06-16-2024 Color (U) Yellow Yellow [facility] Urine glucose detectionOrder ed By: Jay Liu on 06-16-2024 Glucose Ql (U) Normal mg/dl Normal [facility] Urine leukocyte esterase det ection by dipstickOrdered By: Jay Liu on 06-16-2024 Leukocyte esterase Test strip Ql (U) 25 /ul High Negative [facility] Urine pHOrdered By: Jay Liu on 06-16-2024 pH (U) 6.0 [pH] 5.0 - 8.[address] [facility] Urine sediment bacteria coun t by microscopy (number/high power field)Ordered By: Jay Liu on 06-16-2024 Bacteria LM.HPF (Urine sed) [#/Area] RARE /hpf None Seen [facility] Urine specific gravity measu rementOrdered By: Jay Liu on 06-16-2024 Specific gravity (U) [Rel density] 1.025 1.002-1.[address] [facility] Urine urobilinogen measureme ntOrdered By: Jay Liu on 06-16-2024 Urobilinogen Ql (U) 4 mg/dl High Normal [facility] Urobilinogen Ql (U)Ordered B y: Jay Liu on 06-16-2024 Urobilinogen (U) [Mass/Vol] 4 mg/dL High Normal [facility] White blood cell countOrdere d By: Jay Liu on 06-16-2024 Urine WBC 0-5 SEEN /hpf 0-[address] [facility] White blood cell count 0-5 SEEN /hpf 0-[address] [facility] Urine Cultureon 05-31-2024 URC Mixed Gram Positive Organisms [place] Count 11,000-25,000 [facility] Mixed contaminants. Submit a new specimen if indicated. Normal [facility] Comment on above: Performed By: #### L 7000.1800, BTS, L509.8002, L3890.6006, L3890.6301, M100.2200, L501.9985, L100.0100, L501.0900, L3890.6102, L509.4006, L500.4050 ####[facility] [address] [place], [place], [phone] Chlamydia/GC [place] aptimaon CHLAMY,NUC ACID Negative Normal Negative [facility] Comment on above: Performed By: #### L 7000.1800, BTS, L509.8002, L3890.6006, L3890.6301, M100.2200, L501.9985, L100.0100, L501.0900, L3890.6102, L509.4006, L500.4050 ####[facility] [address] [place], [place], [phone] GC BY NUC ACID Negative Normal Negative [facility] Comment on above: Result Comment: Perf ormed at: =G - [facility] [address] [id number] Director: Ese Pastor MD, Phone: [phone] Performed By: #### L 7000.1800, BTS, L509.8002, L3890.6006, L3890.6301, M100.2200, L501.9985, L100.0100, L501.0900, L3890.6102, L509.4006, L500.4050 ####[facility] [address] [place], [address] Absolute lymphocyte countOrd ered By: Peggy Sanchez on 05-29-2024 Lymphocytes Auto (Unsp spec) [#/Vol] 1.70 10*3/uL 0.83-4.[address] [facility] Absolute neutrophil countOrd ered By: Peggy Sanchez on 05-29-2024 Neutrophils (Bld) [#/Vol] 5.2 10*3/uL 2.0-7.[address] [facility] Anion gap in Serum or Plasma Ordered By: Peggy Sanchez on 05-29-2024 Anion gap [Moles/Vol] 14 mmol/L 5-15 [facility] Automated lymphocyte count a s percentage of total leukocytesOrdered By: Peggy Sanchez on 05-29-2024 Lymphocytes/100 WBC Auto (Unsp spec) 22.9 % 19-[address] [facility] BUN/creatinine ratioOrdered By: Peggy Sanchez on 05-29-2024 Urea nitrogen/Creatinine [Mass ratio] 13.4 mg/mg 10-[address] [facility] Basophil percentageOrdered B y: Peggy Sanchez on 05-29-2024 Basophils/100 WBC (Bld) 0.3 % 0-1 [facility] Bilirubin, totalOrdered By: Peggy Sanchez on 05-29-2024 Bilirubin [Mass/Vol] 0.38 mg/dL 0.00-1.30 [facility] C. trachomatis rRNA FRANCE+prob e Ql (Unsp spec)Ordered By: Peggy Sanchez on 05-29-2024 Chlamydia DNA (FRANCE) Negative Negative [facility] CBC W/Diff, Automatedon PLT EST ADEQUATE Normal ADEQ [facility] Comment on above: Performed By: #### L 7000.1800, BTS, L509.8002, L3890.6006, L3890.6301, M100.2200, L501.9985, L100.0100, L501.0900, L3890.6102, L509.4006, L500.4050 ####[facility] [address] [place], [place], [phone] Carbon dioxide, total [Moles /volume] in Central venous bloodOrdered By: Peggy Sanchez on 05-29-2024 CO2 [Moles/Vol] 19.3 mmol/L Low 21.0-32.[address] [facility] Chlamydia trachomatis rRNA d etection by probe and target amplification methodOrdered By: Peggy Sanchez on 05-29-2024 C. trachomatis rRNA FRANCE+probe Ql (Unsp spec) Negative Negative [facility] Chloride assayOrdered By: Amos Sanchez on 05-29-2024 Chloride [Moles/Vol] 103 mmol/L 98-108 [facility] Comprehensive Metabolic Prof ilon 05-29-2024 Albumin [Mass/Vol] 3.9 g/dL Normal 3.5-5.0 [facility] Comment on above: Performed By: #### L 7000.1800, BTS, L509.8002, L3890.6006, L3890.6301, M100.2200, L501.9985, L100.0100, L501.0900, L3890.6102, L509.4006, L500.4050 ####[facility] [address] [place], [place], [phone] Albumin/Globulin [Mass ratio] 1.3 {ratio} Normal 0.9-2.[address] [facility] Comment on above: Performed By: #### L 7000.1800, BTS, L509.8002, L3890.6006, L3890.6301, M100.2200, L501.9985, L100.0100, L501.0900, L3890.6102, L509.4006, L500.4050 ####[facility] [address] [place], [address] ALK PHOS 55 U/L Normal 35-[address] [facility] Comment on above: Performed By: #### L 7000.1800, BTS, L509.8002, L3890.6006, L3890.6301, M100.2200, L501.9985, L100.0100, L501.0900, L3890.6102, L509.4006, L500.4050 ####[facility] [address] [place], [address] ALT [Catalytic activity/Vol] 21 U/L Normal <=[address] [facility] Comment on above: Performed By: #### L 7000.1800, BTS, L509.8002, L3890.6006, L3890.6301, M100.2200, L501.9985, L100.0100, L501.0900, L3890.6102, L509.4006, L500.4050 ####[facility] [address] [place], [address] AST [Catalytic activity/Vol] 20 U/L Normal <=[address] [facility] Comment on above: Performed By: #### L 7000.1800, BTS, L509.8002, L3890.6006, L3890.6301, M100.2200, L501.9985, L100.0100, L501.0900, L3890.6102, L509.4006, L500.4050 ####[facility] [address] [place], [place], [phone] Bilirubin [Mass/Vol] 0.38 mg/dL Normal 0.00-1.30 [facility] Comment on above: Performed By: #### L 7000.1800, BTS, L509.8002, L3890.6006, L3890.6301, M100.2200, L501.9985, L100.0100, L501.0900, L3890.6102, L509.4006, L500.4050 ####[facility] [address] [place], [address] BUN/CRE 13.4 RATIO Normal 10-[address] [facility] Comment on above: Performed By: #### L 7000.1800, BTS, L509.8002, L3890.6006, L3890.6301, M100.2200, L501.9985, L100.0100, L501.0900, L3890.6102, L509.4006, L500.4050 ####[facility] [address] [place], [address] Calcium [Mass/Vol] 8.9 mg/dL Normal 7.6-11.0 [facility] Comment on above: Performed By: #### L 7000.1800, BTS, L509.8002, L3890.6006, L3890.6301, M100.2200, L501.9985, L100.0100, L501.0900, L3890.6102, L509.4006, L500.4050 ####[facility] [address] [place], [place], [phone] Chloride [Moles/Vol] 103 mmol/L Normal 98-108 [facility] Comment on above: Performed By: #### L 7000.1800, BTS, L509.8002, L3890.6006, L3890.6301, M100.2200, L501.9985, L100.0100, L501.0900, L3890.6102, L509.4006, L500.4050 ####[facility] [address] [place], [address] CO2 [Moles/Vol] 19.3 mmol/L Low 21.0-32.[address] [facility] Comment on above: Performed By: #### L 7000.1800, BTS, L509.8002, L3890.6006, L3890.6301, M100.2200, L501.9985, L100.0100, L501.0900, L3890.6102, L509.4006, L500.4050 ####[facility] [address] [place], [place], [phone] Creatinine [Mass/Vol] 0.56 mg/dL Low 0.70-1.20 [facility] Comment on above: Performed By: #### L 7000.1800, BTS, L509.8002, L3890.6006, L3890.6301, M100.2200, L501.9985, L100.0100, L501.0900, L3890.6102, L509.4006, L500.4050 ####[facility] [address] [place], [place], [phone] GAP 14 Normal 5-[address] [facility] Comment on above: Performed By: #### L 7000.1800, BTS, L509.8002, L3890.6006, L3890.6301, M100.2200, L501.9985, L100.0100, L501.0900, L3890.6102, L509.4006, L500.4050 ####[facility] [address] [place], [place], [phone] GFR/1.73 sq M.predicted among non-blacks MDRD (S/P/Bld) [Vol rate/Area] 127 mL/min/{1.73_m2} Normal >[address] [facility] Comment on above: Result Comment: mL/m in/1.73m2 CKD-EPI Creatinine Equation (2020) Performed By: #### L 7000.1800, BTS, L509.8002, L3890.6006, L3890.6301, M100.2200, L501.9985, L100.0100, L501.0900, L3890.6102, L509.4006, L500.4050 ####[facility] [address] [place], [place], [phone] Globulin (S) [Mass/Vol] 3.0 g/dL Normal 2.2-4.2 [facility] Comment on above: Performed By: #### L 7000.1800, BTS, L509.8002, L3890.6006, L3890.6301, M100.2200, L501.9985, L100.0100, L501.0900, L3890.6102, L509.4006, L500.4050 ####[facility] [address] [place], [address] Glucose [Mass/Vol] 80 mg/dL Normal 70-99 [facility] Comment on above: Performed By: #### L 7000.1800, BTS, L509.8002, L3890.6006, L3890.6301, M100.2200, L501.9985, L100.0100, L501.0900, L3890.6102, L509.4006, L500.4050 ####[facility] [address] [place], [address] Potassium [Moles/Vol] 3.6 mmol/L Normal 3.3-5.1 [facility] Comment on above: Performed By: #### L 7000.1800, BTS, L509.8002, L3890.6006, L3890.6301, M100.2200, L501.9985, L100.0100, L501.0900, L3890.6102, L509.4006, L500.4050 ####[facility] [address] [place], [address] Sodium [Moles/Vol] 136 mmol/L Normal 133-145 [facility] Comment on above: Performed By: #### L 7000.1800, BTS, L509.8002, L3890.6006, L3890.6301, M100.2200, L501.9985, L100.0100, L501.0900, L3890.6102, L509.4006, L500.4050 ####[facility] [address] [place], [address] T PROT 6.8 g/dL Normal 5.9-8.[address] [facility] Comment on above: Performed By: #### L 7000.1800, BTS, L509.8002, L3890.6006, L3890.6301, M100.2200, L501.9985, L100.0100, L501.0900, L3890.6102, L509.4006, L500.4050 ####[facility] [address] [place], [address] Urea nitrogen [Mass/Vol] 8 mg/dL Normal 4-[address] [facility] Comment on above: Performed By: #### L 7000.1800, BTS, L509.8002, L3890.6006, L3890.6301, M100.2200, L501.9985, L100.0100, L501.0900, L3890.6102, L509.4006, L500.4050 ####[facility] [address] [place], [address] Creatinine Unsp time (U) [Ma ss/Vol]Ordered By: Peggy Sanchez on 05-29-2024 Creatinine (U) [Mass/Vol] 151.00 mg/dL 28.00-217.[address] [facility] Eosinophil percentageOrdered By: Peggy Sanchez on 05-29-2024 Eosinophils/100 WBC (Bld) 0.5 % 0-[address] [facility] Erythrocyte distribution wid th (RBC) [Ratio]Ordered By: Peggy Sanchez on 05-29-2024 Erythrocyte distribution width (RBC) [Entitic vol] 54.9 fL High 35.1-43.[address] [facility] Erythrocyte distribution wid th ratioOrdered By: Peggy Sanchez on 05-29-2024 Erythrocyte distribution width (RBC) [Ratio] 20.4 % High 11.6-14.[address] [facility] Erythrocyte distribution wid th standard deviationOrdered By: Peggy Sanchez on 05-29-2024 Erythrocyte distribution width (RBC) [Ratio] 54.9 fl High 35.1-43.[address] [facility] GFR/1.73 sq M.predicted miryam g non-blacks MDRD (S/P/Bld) [Vol rate/Area]Ordered By: Peggy Sanchez on 05-29-2024 Estimated GFR (MDRD) Non-Af Amer [address] >[address] [facility] Comment on above: mL/min/1.73m2 CKD-EP I Creatinine Equation (2020) Glomerular filtration rate ( GFR) estimation/1.73 sq m using serum, plasma, or whole bOrdered By: Peggy Sanchez on 05-29-2024 GFR/1.73 sq M.predicted among non-blacks MDRD (S/P/Bld) [Vol rate/Area] 127 mL/min/{1.73_m2} >[address] [facility] Comment on above: mL/min/1.73m2 CKD-EP I Creatinine Equation (2020) HBV surface Ag Ql (S)Ordered By: Peggy Sanchez on 05-29-2024 Hepatitis B Surface Antigen Non-Reactive Nonreactive [facility] Comment on above: Reactive: Presumptiv e evidence of HBV. Repeatedly reactive samples must be confirmed using a neutralization test ([employer] HBsAg Confirmatory Test)Non-Reactive: HBsAg not detected; does not exclude the possibility of exposure to HBV HIVon 05-29-2024 HIV Non-Reactive Normal Nonreactive [facility] Comment on above: Result Comment: Non- ReactiveReactiveRepeatedly reactive samples must be confirmed according toCDC recommended confirmatory algorithms. The subresults foreither HIVAG or AHIV can be used as an aid in the selectionof the confirmation algorithm for reactive samples.Send out specimens with Reactive results to [facility] forconfirmation.Order the HIV antibody detection and differentiation:danisha#[id number] Performed By: #### L 7000.1800, BTS, L509.8002, L3890.6006, L3890.6301, M100.2200, L501.9985, L100.0100, L501.0900, L3890.6102, L509.4006, L500.4050 ####[facility] [address] [place], [place], [phone] Hematocrit Auto (Bld) [Volum e fraction]Ordered By: Peggy Sanchez on 05-29-2024 Hematocrit (Bld) [Volume fraction] 38.8 % 37-[address] [facility] Hemoglobin A1con 05-29-2024 HbA1c (Bld) [Mass fraction] 5.1 % Low <=5.[address] [facility] Comment on above: Performed By: #### L 7000.1800, BTS, L509.8002, L3890.6006, L3890.6301, M100.2200, L501.9985, L100.0100, L501.0900, L3890.6102, L509.4006, L500.4050 ####[facility] [address] [place], [place], [phone] Hemoglobin A1c percentageOrd ered By: Peggy Sanchez on 05-29-2024 HbA1c (Bld) [Mass fraction] 5.1 % Low >5.[address] [facility] Hemoglobin measurementOrdere d By: Peggy Laura on 05-29-2024 Hemoglobin (Bld) [Mass/Vol] 12.1 g/dL 12.0-15.[address] [facility] Hepatitis C Antibodyon 05-29 Hepatitis C Ab Non-Reactive Normal Nonreactive [facility] Comment on above: Result Comment: Reac tive: Presumptive evidence of antibodies to HCV. [facility] for supplemental testing.Non-Reactive: Antibodies to HCV were not detected; does notexclude the possibility of exposure to HCVReactive Results are presumptive evidence of antibodies toHCV. Follow CDC recommendations for supplemental testing.Order confirmation testing: HCV Quant by PCR testing -[facility]CV[facility] #[id number] Non Reactive: < 0.8 Equivocal: >/= 0.8 to < 1.0 Reactive: >/= 1.0The CDC requires that a reactive/equivocal HCV antibodyresult be sent out for confirmation. HCV Quant by PCRtesting. Performed By: #### L 7000.1800, BTS, L509.8002, L3890.6006, L3890.6301, M100.2200, L501.9985, L100.0100, L501.0900, L3890.6102, L509.4006, L500.4050 ####[facility] [address] [place], [address] Hepatitis C antibodyOrdered By: Peggy Sanchez on 05-29-2024 Hepatitis C Antibody Non-Reactive Nonreactive [facility] Comment on above: Reactive: Presumptiv e evidence of antibodies to HCV. Follow CDC recommendations for supplemental testing.Non-Reactive: Antibodies to HCV were not detected; does not exclude the possibility of exposure to HCVReactive Results are presumptive evidence of antibodies to HCV. Follow CDC recommendations for supplemental testing.Order confirmation testing: HCV Quant by PCR testing - HCVPCR #[id number] Non Reactive: < 0.8 Equivocal: >/= 0.8 to < 1.0 Reactive: >/= 1.0The CDC requires that a reactive/equivocal HCV antibody result be sent out for confirmation. HCV Quant by PCR testing. Immature granulocytes/100 WB C Auto (Bld)Ordered By: Peggy Sanchez on 05-29-2024 Immature granulocytes/100 WBC (Bld) 0.400 % 0.0-0.[address] [facility] Comment on above: IG% - Immature Granu locytes (promyelocytes, myelocytes and metamyelocytes) > 1% indicates that a LEFT SHIFT is Present. L3890.6102on 05-29-2024 HEP B Surf Ag Non-Reactive Normal Nonreactive [facility] Comment on above: Result Comment: Reac tive: Presumptive evidence of HBV. Repeatedly reactivesamples must be confirmed using a neutralization test([employer] HBsAg Confirmatory Test)Non-Reactive: HBsAg not detected; does not exclude thepossibility of exposure to HBV Performed By: #### L 7000.1800, BTS, L509.8002, L3890.6006, L3890.6301, M100.2200, L501.9985, L100.0100, L501.0900, L3890.6102, L509.4006, L500.4050 ####[facility] [address] [place], [address] L509.4006on 05-29-2024 Rubella IgG REAC Normal Nonreactive [facility] Comment on above: Result Comment: Anti body Result: InterpretationNon-Reactive: Non-ImmuneReactive: ImmuneThe following results were obtained with the [employer]ysRubella IgG assay. Results from assays of othermanufacturers cannot be used interchangeably. Performed By: #### L 7000.1800, BTS, L509.8002, L3890.6006, L3890.6301, M100.2200, L501.9985, L100.0100, L501.0900, L3890.6102, L509.4006, L500.4050 ####[facility] [address] [place], [address] Laboratory - Chemistry and C hemistry - challengeOrdered By: Peggy Sanchez on 05-29-2024 AST [Catalytic activity/Vol] 20 U/L <[address] [facility] Laboratory - Microbiology an d Antimicrobial susceptibilityOrdered By: Peggy Sanchez on 05-29-2024 HBV surface Ag Ql (S) Non-Reactive Nonreactive [facility] Comment on above: Reactive: Presumptiv e evidence of HBV. Repeatedly reactive samples must be confirmed using a neutralization test ([employer] HBsAg Confirmatory Test)Non-Reactive: HBsAg not detected; does not exclude the possibility of exposure to HBV Lymphocytes Auto (Unsp spec) [#/Vol]Ordered By: Peggy Sanchez on 05-29-2024 Lymphocytes (Bld) [#/Vol] 1.70 10*3/uL 0.83-4.[address] [facility] Lymphocytes/100 WBC Auto (Un sp spec)Ordered By: Peggy Sanchez on 05-29-2024 Lymphocytes/100 WBC (Bld) 22.9 % 19-[address] [facility] MCV (mean corpuscular volume ) determinationOrdered By: Peggy Sanchez on 05-29-2024 MCV (RBC) [Entitic vol] 75.8 fL Low 81-99 [facility] Mean corpuscular hemoglobin (MCH) determinationOrdered By: Peggy Sanchez on 05-29-2024 MCH (RBC) [Entitic mass] 23.6 pg Low 27.0-32.[address] [facility] Mean corpuscular hemoglobin concentration (MCHC) determinationOrdered By: Peggy Sanchez on 05-29-2024 MCHC (RBC) [Mass/Vol] 31.2 g/dL Low 32-36 [facility] Mean platelet volume determi nationOrdered By: Peggy Sanchez on 05-29-2024 Platelet mean volume (Bld) [Entitic vol] 11.1 fL 6.2-12.[address] [facility] Monocyte percentageOrdered B y: Peggy Sanchez on 05-29-2024 Monocytes/100 WBC (Bld) 5.4 % 0-10 [facility] Neisseria gonorrhoeae nuclei c acid detection by amplified probe techniqueOrdered By: Peggy Sanchez on 05-29-2024 N. gonorrhoeae DNA FRANCE+probe Ql (Unsp spec) Negative Negative [facility] Comment on above: Performed at: = - [address] [id number] Director: Ese Pastor MD, Phone: [phone] Neutrophil percentageOrdered By: Peggy Sanchez on 05-29-2024 Neutrophils/100 WBC (Bld) 70.5 % High 47-[address] [facility] No Panel InformationOrdered By: Peggy Sanchez on 05-29-2024 HIV (1&2) Antibody Non-Reactive Nonreactive [facility] Comment on above: Non-ReactiveReactive Repeatedly reactive samples must be confirmed according to CDC recommended confirmatory algorithms. The subresults for either HIVAG or AHIV can be used as an aid in the selection of the confirmation algorithm for reactive samples.Send out specimens with Reactive results to [facility] for confirmation.Order the HIV antibody detection and differentiation: #[id number] Nucleated red blood cell per centageOrdered By: Peggy Sanchez on 05-29-2024 Nucleated RBC/100 WBC (Bld) [Ratio] 0 % 0-[address] [facility] [employer] Visit Reporton 05-29-2024 [facility] [employer] [facility] Visit Report Normal [facility] Platelet countOrdered By: Amos Sanchez on 05-29-2024 Platelets (Bld) [#/Vol] 327 10*3/uL 150-[address] [facility] Platelet estimateOrdered By: Peggy Laura on 05-29-2024 Platelets LM Ql (Bld) ADEQUATE ADEQ [facility] Platelets LM Ql (Bld)Ordered By: Peggy Laura on 05-29-2024 Platelet Estimate ADEQUATE ADEQ [facility] Potassium (Unsp spec) [Mass/ Vol]Ordered By: Peggy Sanchez on 05-29-2024 Potassium [Moles/Vol] 3.6 mmol/L 3.3-5.1 [facility] Potassium measurement (mass/ volume)Ordered By: Peggy Sanchez on 05-29-2024 Potassium (Unsp spec) [Mass/Vol] 3.6 mmol/L 3.3-5.[address] [facility] Protein+Creatinine Ratio,Uri neon 05-29-2024 PROT:CRE RATIO 153 mg/g CRE Normal 0-[address] [facility] Comment on above: Performed By: #### L 7000.1800, BTS, L509.8002, L3890.6006, L3890.6301, M100.2200, L501.9985, L100.0100, L501.0900, L3890.6102, L509.4006, L500.4050 ####[facility] [address] [place], [address] Protein (U) [Mass/Vol] 23.1 mg/dL High 0.0-12.0 [facility] Comment on above: Performed By: #### L 7000.1800, BTS, L509.8002, L3890.6006, L3890.6301, M100.2200, L501.9985, L100.0100, L501.0900, L3890.6102, L509.4006, L500.4050 ####[facility] [address] [place], [address] UR CREAT 151.00 mg/dL Normal 28.00-217.[address] [facility] Comment on above: Performed By: #### L 7000.1800, BTS, L509.8002, L3890.6006, L3890.6301, M100.2200, L501.9985, L100.0100, L501.0900, L3890.6102, L509.4006, L500.4050 ####[facility] [address] [place], [address] Protein/Creatinine (U) [Mass ratio]Ordered By: Peggy Sanchez on 05-29-2024 Urine Protein/Creatinine Ratio 153 mg/g CRE 0-[address] [facility] RBC Auto (Bld) [#/Vol]Ordere d By: Peggy Sanchez on 05-29-2024 RBC (Bld) [#/Vol] 5.12 10*6/uL 4.2-5.4 [facility] Random urine creatinine janette urement (mass/volume)Ordered By: Peggy Sanchez on 05-29-2024 Creatinine Unsp time (U) [Mass/Vol] 151.00 mg/dL 28.00-217.[address] [facility] Rubella immune status determ ination by IgG antibody assayOrdered By: Peggy Sanchez on 05-29-2024 Rubella IgG Antibody REAC Nonreactive [facility] Comment on above: Antibody Result: Int erpretationNon-Reactive: Non-ImmuneReactive: ImmuneThe following results were obtained with the [employer] Rubella IgG assay. Results from assays of other manufacturers cannot be used interchangeably. Serum creatinine measurement (mass/volume)Ordered By: Peggy Sanchez on 05-29-2024 Creatinine [Mass/Vol] 0.56 mg/dL Low 0.70-1.20 [facility] Serum globulin measurementOr dered By: Peggy Sanchez on 05-29-2024 Globulin (S) [Mass/Vol] 3.0 g/dL 2.2-4.2 [facility] Serum glucose measurement (m ass/volume)Ordered By: Peggy Sanchez on 05-29-2024 Glucose [Mass/Vol] 80 mg/dL 70-99 [facility] Serum or plasma alanine barth otransferase (ALT) measurementOrdered By: Peggy Sanchez on 05-29-2024 ALT [Catalytic activity/Vol] 21 U/L <[address] [facility] Serum or plasma albumin janette urement (mass/volume)Ordered By: Peggy Sanchez on 05-29-2024 Albumin [Mass/Vol] 3.9 g/dL 3.5-5.0 [facility] Serum or plasma albumin/glob ulin mass ratioOrdered By: Peggy Sanchez on 05-29-2024 Albumin/Globulin [Mass ratio] 1.3 {ratio} 0.9-2.[address] [facility] Serum or plasma alkaline luz marina sphatase measurementOrdered By: Peggy Sanchez on 05-29-2024 ALP [Catalytic activity/Vol] 55 U/L 35-[address] [facility] Serum or plasma calcium janette urement (mass/volume)Ordered By: Peggy Sanchez on 05-29-2024 Calcium [Mass/Vol] 8.9 mg/dL 7.6-11.0 [facility] Serum or plasma urea nitroge n measurement (mass/volume)Ordered By: Peggy Sanchez on 05-29-2024 Urea nitrogen [Mass/Vol] 8 mg/dL 4-[address] [facility] Sodium levelOrdered By: Meche Sanchez on 05-29-2024 Sodium [Moles/Vol] 136 mmol/L 133-145 [facility] Syphilis Antibodieson 2024 Syphilis Abs Non-Reactive Normal Nonreactive [facility] Comment on above: Performed By: #### L 7000.1800, BTS, L509.8002, L3890.6006, L3890.6301, M100.2200, L501.9985, L100.0100, L501.0900, L3890.6102, L509.4006, L500.4050 ####[facility] [address] [place], [place], [phone] T. pallidum abOrdered By: Amos Sanchez on 05-29-2024 Syphilis Total Antibody Non-Reactive Nonreactiv e [facility] Total proteinOrdered By: Yeni Sanchez on 05-29-2024 Protein [Mass/Vol] 6.8 g/dL 5.9-8.4 [facility] Type AND Screenon 05-29-2024 Ab SCREEN GEL Negative Normal [facility] Comment on above: Order Comment: PN Performed By: #### L 7000.1800, BTS, L509.8002, L3890.6006, L3890.6301, M100.2200, L501.9985, L100.0100, L501.0900, L3890.6102, L509.4006, L500.4050 ####[facility] [address] [place], [place], [phone] Urine cultureOrdered By: Yeni Sanchez on 05-29-2024 Bacteria identified Cx Nom (U) Positive Abnormal [facility] Urine protein measurement (m ass/volume)Ordered By: Peggy Sanchez on 05-29-2024 Protein (U) [Mass/Vol] 23.1 mg/dL High 0.0-12.0 [facility] Urine protein/creatinine mas s ratioOrdered By: Peggy Sanchez on 05-29-2024 Protein/Creatinine (U) [Mass ratio] 153 mg/g CRE 0-[address] [facility] White blood cell (WBC) count Ordered By: Peggy Sanchez on 05-29-2024 WBC (Bld) [#/Vol] 7.4 10*3/uL 4.4-11.0 [facility] 36on 05-26-2024 36 Sent [employer] message to patient with requirements for bariatric patients. Rec'd calories increase by 300/day, protein incr by 20g/day and her current supplementation to stay the same. Pt w/ recent low values of vitamin D, zinc, iron, and B12, has orders in place to recheck those labs in July, reminded pt of that. Normal [facility] Transvaginal w/Preg USon Transvaginal w/Preg US Normal [facility] CBC W/Diff, Automatedon 04-23 Absolute Neut Normal 2.0-7.[address] [facility] Comment on above: Result Comment: PT D ISCHARGED Performed By: #### L 500.4050, L100.0100 ####[facility] [address] [place], [address] HCT Normal 37-[address] [facility] Comment on above: Result Comment: PT D ISCHARGED Performed By: #### L 500.4050, L100.0100 ####[facility] [address] [place], [address] HGB Normal 12.0-15.[address] [facility] Comment on above: Result Comment: PT D ISCHARGED Performed By: #### L 500.4050, L100.0100 ####[facility] [address] [place], [address] MCH Normal 27.0-32.[address] [facility] Comment on above: Result Comment: PT D ISCHARGED Performed By: #### L 500.4050, L100.0100 ####[facility] [facility] [address] [place], [address] MCHC Normal 32-[address] [facility] Comment on above: Result Comment: PT D ISCHARGED Performed By: #### L 500.4050, L100.0100 ####[facility] [address] [place], [address] MCV Normal 81-[address] [facility] Comment on above: Result Comment: PT D ISCHARGED Performed By: #### L 500.4050, L100.0100 ####[facility] [address] [place], [address] NEUT% Normal 47-[address] [facility] Comment on above: Result Comment: PT D ISCHARGED Performed By: #### L 500.4050, L100.0100 ####[facility] [address] [place], [address] PLT Normal 150-[address] [facility] Comment on above: Result Comment: PT D ISCHARGED Performed By: #### L 500.4050, L100.0100 ####[facility] [address] [place], [address] RBC Normal 4.2-5.[address] [facility] Comment on above: Result Comment: PT D ISCHARGED Performed By: #### L 500.4050, L100.0100 ####[facility] [address] [place], [address] RDW CV Normal 11.6-14.[address] [facility] Comment on above: Result Comment: PT D ISCHARGED Performed By: #### L 500.4050, L100.0100 ####[facility] [address] [place], [address] RDW SD Normal 35.1-43.[address] [facility] Comment on above: Result Comment: PT D ISCHARGED Performed By: #### L 500.4050, L100.0100 ####[facility] [address] [place], [address] WBC Normal 4.4-11.[address] [facility] Comment on above: Result Comment: PT D ISCHARGED Performed By: #### L 500.4050, L100.0100 ####[facility] [address] [place], [address] Comprehensive Metabolic Prof stephany 05-18-2024 ALB Normal 3.5-5.[address] [facility] Comment on above: Result Comment: NO S PECIMEN Performed By: #### L 500.4050, L100.0100 ####[facility] [address] [place], [address] ALK PHOS Normal 35-[address] [facility] Comment on above: Result Comment: NO S PECIMEN Performed By: #### L 500.4050, L100.0100 ####[facility] [address] [place], [address] ALT Normal <=[address] [facility] Comment on above: Result Comment: NO S PECIMEN Performed By: #### L 500.4050, L100.0100 ####[facility] [address] [place], [address] AST Normal <=[address] [facility] Comment on above: Result Comment: NO S PECIMEN Performed By: #### L 500.4050, L100.0100 ####[facility] [address] [place], [address] BUN Normal 4-[address] [facility] Comment on above: Result Comment: NO S PECIMEN Performed By: #### L 500.4050, L100.0100 ####[facility] [address] [place], [address] BUN/CRE Normal 10-[address] [facility] Comment on above: Result Comment: NO S PECIMEN Performed By: #### L 500.4050, L100.0100 ####[facility] [address] [place], [address] Calcium Normal 7.6-11.[address] [facility] Comment on above: Result Comment: NO S PECIMEN Performed By: #### L 500.4050, L100.0100 ####[facility] [address] [place], [address] CL Normal 98-[address] [facility] Comment on above: Result Comment: NO S PECIMEN Performed By: #### L 500.4050, L100.0100 ####[facility] [address] [place], [address] CO2 Normal 21.0-32.[address] [facility] Comment on above: Result Comment: NO S PECIMEN Performed By: #### L 500.4050, L100.0100 ####[facility] [address] [place], [address] CREAT,SERUM Normal 0.70-1.[address] [facility] Comment on above: Result Comment: NO S PECIMEN Performed By: #### L 500.4050, L100.0100 ####[facility] [address] [place], [address] eGFR Normal >[address] [facility] Comment on above: Result Comment: NO S PECIMEN Performed By: #### L 500.4050, L100.0100 ####[facility] [address] [place], [address] GAP Normal 5-[address] [facility] Comment on above: Result Comment: NO S PECIMEN Performed By: #### L 500.4050, L100.0100 ####[facility] [address] [place], [address] GLU Normal 70-[address] [facility] Comment on above: Result Comment: NO S PECIMEN Performed By: #### L 500.4050, L100.0100 ####[facility] [address] [place], [address] Potassium Normal 3.3-5.[address] [facility] Comment on above: Result Comment: NO S PECIMEN Performed By: #### L 500.4050, L100.0100 ####[facility] [address] [place], [address] T BILI Normal 0.00-1.[address] [facility] Comment on above: Result Comment: NO S PECIMEN Performed By: #### L 500.4050, L100.0100 ####[facility] [address] [place], [address] T PROT Normal 5.9-8.[address] [facility] Comment on above: Result Comment: NO S PECIMEN Performed By: #### L 500.4050, L100.0100 ####[facility] [address] [place], [address] Comprehensive Metabolic Profil Normal 133-[address] [facility] Comment on above: Result Comment: NO S PECIMEN Performed By: #### L 500.4050, L100.0100 ####[facility] [address] [place], [address] 29on 05-16-2024 29 Addended by: BALWINDER FAJARDO on: 05/16/2024 11:57 AM Modules accepted: Orders [facility] 36on 05-16-2024 36 18 month labs entere d per JACINTA [facility] 36on 05-12-2024 36 Order signed [facility] 36 ----- Message from Linette Campbell MD sent at 05/11/2024 6:10 PM [...] necessary, they also canceled on my end. [facility] 36 Called pt regarding low B12 (300), iron (47), and D(14). Pt has not been taking B12, and only taking 2000 IU of D3. Pt w/ chronic low iron, to order 325mg ferrous sulfate BID. Rec'd pt take 2000 IU vitamin D3 TID until we recheck her labs in 3 months. Awaiting B1 and zinc result. Sent follow up [employer] message to pt w/ all supplement information. [facility] 36 ----- Message from Linette Campbell MD sent at 05/11/2024 6:11 PM EDT ----- Zinc and vitamin D are still low, please replace [facility] 25-hydroxyvitamin D3 [Mass/V ol]on 05-11-2024 Interpretation and review of laboratory results Abnormal [facility] Target concentration : 30 - 40 ng/mL; toxicity seen at concentrations >100 ng/mL Less than 20 ng/mL: Indicative of Vit D deficiency Test performed by [employer], measuring Total Vitamin D, not individual fractions. [facility] CBC (HEMOGRAM)on 05-11-2024 Erythrocyte distribution width (RBC) [Ratio] 23.3 % High 11.5-15.0 [facility] Comment on above: Order Comment: These orders are set for an approximate date - they can be drawn up to 3 months prior to the Expected Date on this Req. Please send results to: [facility] [address] [place] [address] - [phone] And if not done at a [facility], please send to: [facility] - [address] [place] [address] Patient Name: Anne Marie Peterson 1995 Order Created by : Peggy Friedman MA Performed By: #### L AB68, [id number], LAB67, LAB17, LAB18, LAB69 #### Mitigation Supervisor: HENNY HEATON ([phone]) [facility] ([facility]) [address] [place] [address] Hematocrit (Bld) [Volume fraction] 38.0 % Normal 35.0-47.0 [facility] Comment on above: Order Comment: These orders are set for an approximate date - they can be drawn up to 3 months prior to the Expected Date on this Req. Please send results to: [facility] [address] [place] [address] - [phone] And if not done at a [facility], please send to: [place] [address] Patient Name: Anne Marie Peterson - 1995 Order Created by : Peggy Friedman MA Performed By: #### L AB68, [id number], LAB67, LAB17, LAB18, LAB69 #### Mitigation Supervisor: HENNY HEATON ([phone]) [facility] [address] Hemoglobin (Bld) [Mass/Vol] 11.8 g/dL Normal 11.7-16.0 [facility] Comment on above: Order Comment: These orders are set for an approximate date - they can be drawn up to 3 months prior to the Expected Date on this Req. Please send results to: [facility] [address] [place] [phone] - [phone] And if not done at a [facility], please send to: [place] [address] Patient Name: Anne Marie Peterson - 1995 Order Created by : Peggy Friedman MA Performed By: #### L AB68, [id number], LAB67, LAB17, LAB18, LAB69 #### Mitigation Supervisor: HENNY HEATON ([phone]) [address] IPF 3 Normal [facility] Comment on above: Order Comment: These orders are set for an approximate date - they can be drawn up to 3 months prior to the Expected Date on this Req. Please send results to: [address] [place] [address] - [phone] And if not done at a [facility], please send to: [place] [address] Patient Name: Anne Marie Peterson - 1995 Order Created by : Peggy Friedman MA Performed By: #### L AB68, [id number], LAB67, LAB17, LAB18, LAB69 #### Mitigation Supervisor: HENNY HEATON ([phone]) [facility] ([facility]) [address] [place] [address] MCH (RBC) [Entitic mass] 23.0 pg Low 26.0-34.0 [facility] Comment on above: Order Comment: These orders are set for an approximate date - they can be drawn up to 3 months prior to the Expected Date on this Req. Please send results to: [facility] [place] [address] - [phone] And if not done at a [facility], please send to: [facility] - [address] [place] [address] Patient Name: Anne Marie Peterson - 1995 Order Created by : Peggy Friedman MA Performed By: #### L AB68, [id number], LAB67, LAB17, LAB18, LAB69 #### Mitigation Supervisor: HENNY HEATON ([phone]) [facility] ([facility]) [address] [place] [address] MCHC 31.1 % Normal 30.5-36.0 [facility] Comment on above: Order Comment: These orders are set for an approximate date - they can be drawn up to 3 months prior to the Expected Date on this Req. Please send results to: [address] [facility] [place] [id number] - [phone] And if not done at a [facility], please send to: [facility] - [address] [place] [address] Patient Name: Anne Marie Peterson - 1995 Order Created by : Peggy Friedman MA Performed By: #### L AB68, [id number], LAB67, LAB17, LAB18, LAB69 #### Mitigation Supervisor: HENNY HEATON ([phone]) [facility] ([facility]) [address] [place] [address] MCV (RBC) [Entitic vol] 74.1 fL Low 77.0-99.0 [facility] Comment on above: Order Comment: These orders are set for an approximate date - they can be drawn up to 3 months prior to the Expected Date on this Req. Please send results to: [facility] [place] [address] - [phone] And if not done at a [facility], please send to: [facility] - [address] [place] [address], [address] Patient Name: Anne Marie Peterson - 1995 Order Created by : Peggy Friedman MA Performed By: #### L AB68, [id number], LAB67, LAB17, LAB18, LAB69 #### Mitigation Supervisor: HENNY HEATON ([phone]) [facility] ([facility]) [address] [place] [address] [place] Platelet mean volume (Bld) [Entitic vol] 10.8 fL Normal 9.0-12.7 [facility] Comment on above: Order Comment: These orders are set for an approximate date - they can be drawn up to 3 months prior to the Expected Date on this Req. Please send results to: [address] [place] [address] - [phone] And if not done at a [facility], please send to: [facility] - [address] [place] [address], [address] Patient Name: Anne Marie Peterson - 1995 Order Created by : Peggy Friedman MA Performed By: #### L AB68, [id number], LAB67, LAB17, LAB18, LAB69 #### Mitigation Supervisor: HENNY HEATON ([phone]) [facility] ([facility]) [address] [place] [address] [place] Platelets (Bld) [#/Vol] 293 10*3/uL Normal 140-440 [facility] Comment on above: Order Comment: These orders are set for an approximate date - they can be drawn up to 3 months prior to the Expected Date on this Req. Please send results to: [address] [place] [address] - [phone] And if not done at a [facility], please send to: [place] [address] Patient Name: Anne Marie Peterson - 1995 Order Created by : Peggy Friedman MA Performed By: #### L AB68, ZHT157, LAB67, LAB17, LAB18, LAB69 #### Mitigation Supervisor: HENNY HEATON ([phone]) [facility] ([facility]) [address] [place] [address] RBC (Bld) [#/Vol] 5.13 10*6/uL Normal 3.80-5.20 [facility] Comment on above: Order Comment: These orders are set for an approximate date - they can be drawn up to 3 months prior to the Expected Date on this Req. Please send results to: [facility] [address] [place] [address] - [phone] And if not done at a [facility], please send to: [place] [address] Patient Name: Anne Marie Peterson - 1995 Order Created by : Peggy Friedman MA Performed By: #### L AB68, UNV978, LAB67, LAB17, LAB18, LAB69 #### Mitigation Supervisor: HENNY HEATON ([phone]) [facility] ([facility]) [address] [place] [address] WBC (Bld) [#/Vol] 6.9 10*3/uL Normal 3.6-10.7 [facility] Comment on above: Order Comment: These orders are set for an approximate date - they can be drawn up to 3 months prior to the Expected Date on this Req. Please send results to: [facility] [address] [place] [address] - [phone] And if not done at a [facility], please send to: [place] [address] Patient Name: Anne Marie Peterson - 1995 Order Created by : Peggy Friedman MA Performed By: #### L AB68, RWK026, LAB67, LAB17, LAB18, LAB69 #### Mitigation Supervisor: HENNY HEATON ([phone]) [facility] ([facility]) [address] [place] [address] CBC panel Auto (Bld)Ordered By: Belle Alvarado on 05-11-2024 Erythrocyte distribution width (RBC) [Ratio] 23.3 % High 11.5 - 15.0 % [facility] Hematocrit (Bld) [Volume fraction] 38 % 35.0 - 47.0 % [facility] Hemoglobin (Bld) [Mass/Vol] 11.8 g/dL 11.7 - 16.0 g/dL [facility] Interpretation and review of laboratory results Abnormal [facility] IPF 3 [facility] [employer] MCH (RBC) [Entitic mass] 23 pg Low 26.0 - 34.0 pg [facility] MCHC (RBC) [Mass/Vol] 31.1 % 30.5 - 36.0 % [facility] MCV (RBC) [Entitic vol] 74.1 fL Low 77.0 - 99.0 fL [facility] Platelet mean volume (Bld) [Entitic vol] 10.8 fL 9.0 - 12.7 fL [facility] Platelets (Bld) [#/Vol] 293 10*3/uL 140 - 440 10*3/uL [facility] RBC (Bld) [#/Vol] 5.13 10*6/uL 3.80 - 5.2 0 10*6/uL [facility] WBC (Bld) [#/Vol] 6.9 10*3/uL 3.6 - 10.7 10*3/uL [facility] COMPREHENSIVE METABOLIC PANE Chavez 05-11-2024 Albumin [Mass/Vol] 3.7 g/dL Normal 3.5-5.0 [facility] Comment on above: Order Comment: These orders are set for an approximate date - they can be drawn up to 3 months prior to the Expected Date on this Req.Please send results to: [facility] [address] [address] - [phone] if not done at a [facility], please send to:[address], [address]Osbuu: [phone] Woleatr Name: Anne Marie Tran 1995Order Created by : Yeimy Fragoso LPN Performed By: #### L AB68, [id number], LAB67, LAB17, LAB18, LAB69 #### Mitigation Supervisor: HENNY HEATON ([phone]) [facility] ([facility]) [address] [place] [address] ALP [Catalytic activity/Vol] 60 U/L Normal 40-150 [facility] Comment on above: Order Comment: These orders are set for an approximate date - they can be drawn up to 3 months prior to the Expected Date on this Req.Please send results to: [address] [phone] - [phone] if not done at a [facility], please send to:[address] [address]Tbnkl: [phone] Otqxsle Name: Anne Marie Peterson - 1995Order Created by : Yeimy Fragoso LPN Performed By: #### L AB68, [id number], LAB67, LAB17, LAB18, LAB69 #### Mitigation Supervisor: HENNY HEATON ([phone]) [facility] ([facility]) [address] [place] [address] ALT [Catalytic activity/Vol] 24 U/L Normal <30 [facility] Comment on above: Order Comment: These orders are set for an approximate date - they can be drawn up to 3 months prior to the Expected Date on this Req.Please send results to: [address] [address] - [phone] if not done at a [facility], please send to:[address], [address]Jitob: [phone] Coeaige Name: Anne Marie Peterson - 1995Order Created by : Yeimy Fragoso LPN Performed By: #### L AB68, [id number], LAB67, LAB17, LAB18, LAB69 #### Mitigation Supervisor: HENNY HEATON ([phone]) [facility] ([facility]) [address] [place] [address] Anion gap [Moles/Vol] 8 mmol/L Normal 3-13 [facility] Comment on above: Order Comment: These orders are set for an approximate date - they can be drawn up to 3 months prior to the Expected Date on this Req.Please send results to: [address] [address] - [phone] if not done at a [facility], please send to:[place] [address]Phone: Hzsmojd Name: Anne Marie Tran 1995Order Created by : Yeimy Fragoso LPN Performed By: #### L AB68, [id number], LAB67, LAB17, LAB18, LAB69 #### Mitigation Supervisor: HENNY HEATON ([phone]) [facility] ([facility]) [address] [place] [address] AST [Catalytic activity/Vol] 24 U/L Normal <34 [facility] Comment on above: Order Comment: These orders are set for an approximate date - they can be drawn up to 3 months prior to the Expected Date on this Req.Please send results to: [address] [address] - [phone] if not done at a [facility], please send to:[address], [address]Kktun: [phone] Zakpsxd Name: Anne Marie Tran 1995Order Created by : Yeimy Verh, AUDIO VISUAL MANAGER Performed By: #### L AB68, [id number], LAB67, LAB17, LAB18, LAB69 #### Mitigation Supervisor: HENNY HEATON ([phone]) [facility]) [address] [place] [address] Bilirubin [Mass/Vol] 0.6 mg/dL Normal <1.2 [facility] Comment on above: Order Comment: These orders are set for an approximate date - they can be drawn up to 3 months prior to the Expected Date on this Req.Please send results to: [address] [address] - [phone] if not done at a [facility], please send to:[address], [address]Bpueg: [phone] Pddfpkj Name: Anne Marie Peterson 1995Order Created by : Yeimy Fragoso AUDIO VISUAL MANAGER Performed By: #### L AB68, [id number], LAB67, LAB17, LAB18, LAB69 #### Mitigation Supervisor: HENNY HEATON ([phone]) [facility]) [address] [place] [address] Calcium [Mass/Vol] 9.2 mg/dL Normal 8.4-10.2 [facility] Comment on above: Order Comment: These orders are set for an approximate date - they can be drawn up to 3 months prior to the Expected Date on this Req.Please send results to: [address] [address] - [phone] if not done at a [facility], please send to:[address], [address], [address]Stauh: [phone] Kysovjm Name: Anne Marie Peterson 1995Order Created by : Yeimy Fragoso AUDIO VISUAL MANAGER Performed By: #### L AB68, [id number], LAB67, LAB17, LAB18, LAB69 #### Mitigation Supervisor: HENNY HEATON ([phone]) [facility] ([facility]) [address] [place] [address] Chloride [Moles/Vol] 106 mmol/L Normal 98-107 [facility] Comment on above: Order Comment: These orders are set for an approximate date - they can be drawn up to 3 months prior to the Expected Date on this Req.Please send results to: [address] [address] - [phone] if not done at a [facility], please send to:[place] [address]Phone: Lipnqja Name: Anne Marie Peterson 1995Order Created by : Yeimy Fragoso LPN Performed By: #### L AB68, [id number], LAB67, LAB17, LAB18, LAB69 #### Mitigation Supervisor: HENNY HEATON ([phone]) [address] CO2 [Moles/Vol] 24 mmol/L Normal 22-29 [facility] Comment on above: Order Comment: These orders are set for an approximate date - they can be drawn up to 3 months prior to the Expected Date on this Req.Please send results to: [address] [address] - [phone] if not done at a [facility], please send to:[place] [address]Phone: Ykdmrhg Name: Anne Marie Peterson - 1995Order Created by : Yeimy Fragoso LPN Performed By: #### L AB68, AEP119, LAB67, LAB17, LAB18, LAB69 #### Mitigation Supervisor: HENNY HEATON ([phone]) [facility]) [address] [place] [address] Creatinine [Mass/Vol] 0.66 mg/dL Normal 0.57-1.11 [facility] Comment on above: Order Comment: These orders are set for an approximate date - they can be drawn up to 3 months prior to the Expected Date on this Req.Please send results to: [address] [address] - [phone] if not done at a [facility], please send to:[address], [address]Awlxa: [phone] Yeyfsmd Name: Anne Marie Peterson 1995Order Created by : Yeimy Fragoso LPN Performed By: #### L AB68, [id number], LAB67, LAB17, LAB18, LAB69 #### Mitigation Supervisor: HENNY HEATON ([phone]) [facility] ([facility]) [address] [place] [address] GLOMERULAR FILTRATION RATE ML/MIN/1.73 SQ M.PREDICTED >90.0 Normal >60.0 [facility] Comment on above: Order Comment: These orders are set for an approximate date - they can be drawn up to 3 months prior to the Expected Date on this Req.Please send results to: [address] [address] - [phone] if not done at a [facility], please send to:[address], [address]Bvnbm: [phone] Znshfzw Name: Anne Marie Peterson - 1995Order Created by : Yeimy Fragoso LPN Result Comment: Calc ulation based on the Chronic Kidney Disease Epidemiology Collaboration (CKD-EPI) equation refit without adjustment for race Performed By: #### L AB68, [id number], LAB67, LAB17, LAB18, LAB69 #### Mitigation Supervisor: HENNY HEATON ([phone]) [facility] [address] [place] [address] [place] Glucose [Mass/Vol] 73 mg/dL Low 74-100 [facility] Comment on above: Order Comment: These orders are set for an approximate date - they can be drawn up to 3 months prior to the Expected Date on this Req.Please send results to: [address] [address] - [phone] if not done at a [facility], please send to:[address], [address]Ucsql: [phone] Lbpoquk Name: Anne Marie Peterson 1995Order Created by : Yeimy Fragoso LPN Performed By: #### L AB68, [id number], LAB67, LAB17, LAB18, LAB69 #### Mitigation Supervisor: HENNY HEATON ([phone]) [facility]) [address] [place] [address] Potassium [Moles/Vol] 3.9 mmol/L Normal 3.5-5.1 [facility] Comment on above: Order Comment: These orders are set for an approximate date - they can be drawn up to 3 months prior to the Expected Date on this Req.Please send results to: [address] [address] - [phone] if not done at a [facility], please send to:[address], [address]Kdbks: [phone] Fciobmy Name: Anne Marie Peterson 1995Order Created by : Yeimy Fragoso LPN Result Comment: [facility] potassium values may be up to 0.5 mmol/L lower than serum values. Performed By: #### L AB68, [id number], LAB67, LAB17, LAB18, LAB69 #### Mitigation Supervisor: HENNY HEATON ([phone]) [facility] ([facility]) [address] [place] [address] Protein [Mass/Vol] 6.7 g/dL Normal 6.4-8.3 [facility] Comment on above: Order Comment: These orders are set for an approximate date - they can be drawn up to 3 months prior to the Expected Date on this Req.Please send results to: [address] [address] - [phone] if not done at a [facility], please send to:[address], [address]Sdjwp: [phone] Ejpfaqq Name: [facility] 1995Order Created by : Yeimy Fragoso LPN Performed By: #### L AB68, [id number], LAB67, LAB17, LAB18, LAB69 #### Mitigation Supervisor: HENNY HEATON ([phone]) [address] Sodium [Moles/Vol] 138 mmol/L Normal 136-145 [facility] Comment on above: Order Comment: These orders are set for an approximate date - they can be drawn up to 3 months prior to the Expected Date on this Req.Please send results to: [address] [address] - [phone] if not done at a [facility], please send to:[address] [address]Gkewo: [phone] Hacwdfp Name: [facility] 1995Order Created by : Yeimy Fragoso LPN Performed By: #### L AB68, [id number], LAB67, LAB17, LAB18, LAB69 #### Mitigation Supervisor: HENNY HEATON ([phone]) [facility]) [address] [place] [address] Urea nitrogen [Mass/Vol] 6 mg/dL Low 8-21 [facility] Comment on above: Order Comment: These orders are set for an approximate date - they can be drawn up to 3 months prior to the Expected Date on this Req.Please send results to: [address] [address] - [phone] if not done at a [facility], please send to:[facility] - [address] [place] [address], [address] [address], [address]Bsunt: [phone] Tlzvxvz Name: Anne Marie Peterson - 1995Order Created by : Yeimy Fragoso LPN Performed By: #### L AB68, [id number], LAB67, LAB17, LAB18, LAB69 #### Mitigation Supervisor: HENNY HEATON ([phone]) [facility] ([facility]) [address] [place] [address] Cobalamin (Vitamin B12) [Mas s/Vol]on 05-11-2024 Interpretation and review of laboratory results Normal [facility] Comprehensive metabolic 1998 panelon 05-11-2024 Albumin [Mass/Vol] 3.7 g/dL 3.5 - 5.0 g/dL [facility] ALP [Catalytic activity/Vol] 60 U/L 40 - 150 U/L [facility] ALT [Catalytic activity/Vol] 24 U/L NINF - 30 U/L [facility] Anion gap [Moles/Vol] 8 mmol/L 3 - 13 mmol/L [facility] AST [Catalytic activity/Vol] 24 U/L NINF - 34 U/L [facility] Bilirubin [Mass/Vol] 0.6 mg/[facility] mg/dL [facility] Calcium [Mass/Vol] 9.2 mg/dL 8.4 - 10. 2 mg/dL [facility] Chloride [Moles/Vol] 106 mmol/L 98 - 10 7 mmol/L [facility] CO2 [Moles/Vol] 24 mmol/L 22 - 29 mmol/L [facility] Creatinine [Mass/Vol] 0.66 mg/dL 0.57 - 1.11 mg/dL [facility] GFR/1.73 sq M.predicted (S/P/Bld) [Vol rate/Area] - PINF [facility] Comment on above: Calculation based on the Chronic Kidney Disease Epidemiology Collaboration (CKD-EPI) equation refit without adjustment for race Glucose [Mass/Vol] 73 mg/dL Low 74 - 100 mg/dL [facility] Interpretation and review of laboratory results Abnormal [facility] Potassium [Moles/Vol] 3.9 mmol/L 3.5 - 5.1 mmol/L [facility] Comment on above: Plasma potassium juanito ues may be up to 0.5 mmol/L lower than serum values. Protein [Mass/Vol] 6.7 g/dL 6.4 - 8.3 g/dL [facility] Sodium [Moles/Vol] 138 mmol/L 136 - 145 mmol/L [facility] Urea nitrogen [Mass/Vol] 6 mg/dL Low 8 - 21 mg/dL [facility] FERRITINon 05-11-2024 Ferritin [Mass/Vol] 86 ng/mL Normal 5-204 [facility] Comment on above: Result Comment: ORDE R COMMENTS: These orders are set for an approximate date - they can be drawn up to 3 months prior to the Expected Date on this Req. Please send results to: [facility] [address] [place] [address] - [phone] And if not done at a [facility], please send to: [address], [address] Patient Name: Anne Marie Peterson - 1995 Order Created by : Yeimy Fragoso LPN Ferritin levels below 10 ng/mL have been reported as indicative of iron deficiency anemia. Performed By: #### L AB68, [id number], LAB67, LAB17, LAB18, LAB69 #### Mitigation Supervisor: HENNY HEATON ([phone]) [facility] ([facility]) [address] [place] [address] FOLATEon 05-11-2024 FOLATE RESULT 9.8 ng/mL Normal 7.0-31.4 [facility] Comment on above: Order Comment: These orders are set for an approximate date - they can be drawn up to 3 months prior to the Expected Date on this Req.Please send results to: [facility] [address] [place] [address] - [phone] if not done at a [facility], please send to:[address], [address]Ozcwk: [phone] Rotanim Name: Anne Marie Peterson - 1995Order Created by : Yeimy Fragoso LPN Performed By: #### L AB68, [id number], LAB67, LAB17, LAB18, LAB69 #### Mitigation Supervisor: HENNY HEATON ([phone]) [facility] ([facility]) [address] [place] [address] [place] Ferritin [Mass/Vol]on 2024 Interpretation and review of laboratory results Normal [facility] Ferritin levels belo w 10 ng/mL have been reported as indicative of iron deficiency anemia. [facility] Folate [Mass/Vol]on 05-12-19 Interpretation and review of laboratory results Normal [facility] IRONon 05-11-2024 IRON, TOTAL 47 ug/dL Low 50-170 [facility] Comment on above: Order Comment: These orders are set for an approximate date - they can be drawn up to 3 months prior to the Expected Date on this Req. Please send results to: [facility] [address] [place] [address] - [phone] And if not done at a [facility], please send to: [facility] Bariatric [facility] - [address] [place] [address], [address] [facility], [address] Patient Name: Anne Marie Peterson - 1995 Order Created by : Peggy Friedman MA Performed By: #### L AB68, [id number], LAB67, LAB17, LAB18, LAB69 #### Mitigation Supervisor: HENNY HEATON ([phone]) [facility] ([facility]) [address] [place] [address] [place] Iron and Iron binding capaci ty panelon 05-11-2024 Interpretation and review of laboratory results Abnormal [facility] Iron [Mass/Vol] 47 ug/dL Low 50 - 170 ug/dL [facility] LIPID PANELon 05-11-2024 Cholesterol [Mass/Vol] 138 mg/dL Normal <200 [facility] Comment on above: Order Comment: These orders are set for an approximate date - they can be drawn up to 3 months prior to the Expected Date on this Req.Please send results to: [address] [address] - [phone] if not done at a [facility], please send to:[address] [address]Efpgz: [phone] Glvhqwj Name: [facility] 1995Order Created by : Yeimy Fragoso LPN Performed By: #### L AB68, [id number], LAB67, LAB17, LAB18, LAB69 #### Mitigation Supervisor: HENNY HEATON ([phone]) [address] Cholesterol in HDL [Mass/Vol] 41 mg/dL Low >=60 [facility] Comment on above: Order Comment: These orders are set for an approximate date - they can be drawn up to 3 months prior to the Expected Date on this Req.Please send results to: [address] [address] - [phone] if not done at a [facility], please send to:[address] [address]Oxudm: [phone] Djkzuvf Name: Anne Marie [facility] 1995Order Created by : Yeimy Fragoso LPN Performed By: #### L AB68, [id number], LAB67, LAB17, LAB18, LAB69 #### Mitigation Supervisor: HENNY HEATON ([phone]) [facility]) [address] [place] [address] Cholesterol.total/Gerardo sterol in HDL [Mass ratio] 3 {ratio} Normal [facility] Comment on above: Order Comment: These orders are set for an approximate date - they can be drawn up to 3 months prior to the Expected Date on this Req.Please send results to: [address] [address] - [phone] if not done at a [facility], please send to:[address], [address]Owako: [phone] Fwpzmyc Name: Anne Marie Peterson - 1995Order Created by : Yeimy Fragoso LPN Result Comment: Ref Range: < 3 Low Risk for CHD 3-6 Mod Risk for CHD > 6 High Risk for CHD Performed By: #### L AB68, [id number], LAB67, LAB17, LAB18, LAB69 #### Mitigation Supervisor: HENNY HEATON ([phone]) [facility] ([facility]) [address] [place] [address] LOW DENSITY LIPOPROTEIN 86 mg/dL Normal 0-<100 [facility] Comment on above: Order Comment: These orders are set for an approximate date - they can be drawn up to 3 months prior to the Expected Date on this Req.Please send results to: [address] [address] - [phone] if not done at a [facility], please send to:[address], [address]Sfoob: [phone] Qdjtmhk Name: Anne Marie Peterson - 1995Order Created by : Yeimy Fragoso LPN Performed By: #### L AB68, [id number], LAB67, LAB17, LAB18, LAB69 #### Mitigation Supervisor: HENNY HEATON ([phone]) [facility] ([facility]) [address] [place] [address] NON-HDL CHOLESTEROL, CALCULATED 97 Normal <130 [facility] Comment on above: Order Comment: These orders are set for an approximate date - they can be drawn up to 3 months prior to the Expected Date on this Req.Please send results to: [address] [address] - [phone] if not done at a [facility], please send to:[address] [place], [address]Qylje: [phone] Pjndyob Name: Anne Marie Tran 1995Order Created by : Yeimy Fragoso LPN Performed By: #### L AB68, [id number], LAB67, LAB17, LAB18, LAB69 #### Mitigation Supervisor: HENNY HEATON ([phone]) [facility] ([facility]) [address] [place] [address] Triglyceride [Mass/Vol] 53 mg/dL Normal <150 [facility] Comment on above: Order Comment: These orders are set for an approximate date - they can be drawn up to 3 months prior to the Expected Date on this Req.Please send results to: [address] [address] - [phone] if not done at a [facility], please send to:[place] [address]Phone: Tlyzrhv Name: Anne Marie Tran 1995Order Created by : Yeimy Fragoso LPN Performed By: #### L AB68, [id number], LAB67, LAB17, LAB18, LAB69 #### Mitigation Supervisor: HENNY HEATON ([phone]) [facility] ([facility]) [address] [place] [address] [place] VERY LOW DENSITY LIPOPROTEIN, CALCULATED 11 mg/dL Normal <=30 [facility] Comment on above: Order Comment: These orders are set for an approximate date - they can be drawn up to 3 months prior to the Expected Date on this Req.Please send results to: [address] [address] - [phone] if not done at a [facility], please send to:[address], [address]Naosr: [phone] Lhmjiir Name: Anne Marie Tran 1995Order Created by : Yeimy Fragoso LPN Performed By: #### L AB68, OSG124, LAB67, LAB17, LAB18, LAB69 #### Mitigation Supervisor: HENNY HEATON ([phone]) [facility] ([facility]) [address] [place] [address] Laboratory - Chemistry and C hemistry - challengeon 05-11-2024 Cobalamin (Vitamin B12) [Mass/Vol] 300 pg/mL 213 - 816 pg/mL [facility] Folate [Mass/Vol] 9.8 ng/mL 7.0 - 31.4 ng/mL [facility] Ferritin [Mass/Vol] 86 ng/mL 5 - 204 ng/mL [facility] Magnesium [Mass/Vol] 1.9 mg/dL 1.6 - 2 .6 mg/dL [facility] 25-hydroxyvitamin D3 [Mass/Vol] 14 ng/mL Low See comment [facility] Lipid 1996 panelon Cholesterol [Mass/Vol] 138 mg/dL NINF - 200 mg/dL [facility] Cholesterol in HDL [Mass/Vol] 41 mg/dL Low 60 - PINF mg/dL [facility] Cholesterol in LDL [Mass/Vol] 86 mg/dL 0 - <100 [facility] Cholesterol.total/Gerardo sterol in HDL [Mass ratio] 3 {ratio} [facility] Comment on above: Ref Range: < 3 Low Risk for CHD 3-6 Mod Risk for CHD > 6 High Risk for CHD Interpretation and review of laboratory results Abnormal [facility] NON-HDL CHOLESTEROL, CALCULATED 97 NINF - 130 [facility] Triglyceride [Mass/Vol] 53 mg/dL NINF - 150 mg/dL [facility] VERY LOW DENSITY LIPOPROTEIN, CALCULATED 11 mg/dL NINF - 30 mg/dL [facility] MAGNESIUMon 05-11-2024 Magnesium [Mass/Vol] 1.9 mg/dL Normal 1.6-2.6 [facility] Comment on above: Result Comment: ORDE R COMMENTS: These orders are set for an approximate date - they can be drawn up to 3 months prior to the Expected Date on this Req. Please send results to: [address] [place] [address] - [phone] And if not done at a [facility], please send to: [facility] - [address] [place] [address], [address] [place] [address], [facility] Patient Name: Anne Marie Peterson - 1995 Order Created by : Yeimy Fragoso LPN Higher values can be expected in females during menses. Performed By: #### L AB68, [id number], LAB67, LAB17, LAB18, LAB69 #### Mitigation Supervisor: HENNY HEATON ([phone]) [facility] ([facility]) [address] [place] [address] Magnesium [Mass/Vol]on 05-11 Interpretation and review of laboratory results Normal [facility] Higher values can be expected in females during menses. [facility] No Panel Informationon 05-11 [facility] Office Visiton 05-11-2024 Follow-up visit [id number] Anne Marie Peterson 1995 F Date Provider Department Center 05/11/2024 [facility] BCC SURG None Family History Problem Relation Age of Onset Cancer Mother Hypertension Mother Obesity Mother Heart disease Father Obesity Father Cancer Maternal Grandmother Heart disease Maternal Grandmother Stroke Maternal Grandfather Hypertension Maternal Grandfather Heart disease Maternal Grandfather Diabetes Maternal Grandfather Obesity Maternal Grandfather Anesthesia problems Maternal Grandfather Family Status - Relation Status Age at Mother Alive Father Alive Maternal Grandmother Alive Maternal Grandfather Alive Level of Service:89933 HI OFFICE/OUTPATIENT ESTABLISHED MOD MDM 30 MIN Reason for Visit and Comments: Bariatrics Post Op Follow-up [884] - 12M Normal [facility] Progress Noteon 05-11-2024 Progress Note [facility] > 12 MONTH POST-OPERATIVE DIETITIAN VISIT Date: 05/11/24 Patient's weight decreased by: 147.8 lbs Patient does notconsume 5-6 small meals daily Patient?s portions are adequate for current diet: ?-1 cup Protein requirements discussed- currently consuming 65 [...] questions. Visit completed by: Andreea Webster RD [facility] Progress Note [facility] SURGICAL PROGRAM Patient: Anne [...] Examination: BP 126/84 Pulse 80 Temp 36.4 ?C (97.6 ?F) Resp 16 Ht 5' 5.25 (1.657 m) Comment: bcc Wt 255 lb 3.2 oz (116 kg) BMI 42.14 kg/m? General: This patient is awake, alert, and [...] times daily. ERGOCALCIFEROL (VITAMIN D2) 1.25 MG (91221 UT) CAPSULE Take 1 capsule (1.25 mg) [...] 2 tablets by mouth daily. NYSTATIN (MYCOSTATIN) 557288 UNIT/GM POWDER Apply topically 2 times daily. RESPIRATORY THERAPY SUPPLIES (CARETOUCH 2 CPAP HOSE DRUG ABUSE TREATMENT SPECIALIST) MISC CPAP 10 cm h20 THIAMINE (VITAMIN [...] mouth daily. 60 tablet 11 nystatin (Mycostatin) 273627 UNIT/GM powder Apply topically 2 times daily. Respiratory Therapy Supplies (CareTouch 2 CPAP Hose Milk Receiver Tank Truck) misc CPAP 10 cm h20 thiamine (Vitamin B-1) 50 MG tablet Take 1 tablet (50 mg) by mouth daily. Take 1 tablet by mouth daily. 30 tablet 11 VITAMIN D, CHOLECALCIFEROL, PO Take 4,000 Int'l Units by mouth daily. zinc 50 MG tablet Take 1 tablet (50 mg) by mouth daily. 30 tablet 3 ergocalciferol (Vitamin D2) 1.25 MG (68034 UT) capsule Take 1 capsule (1.25 mg) [...] age- 18-50. We discussed the importance of cont (more content not included)... Normal [facility] VITAMIN B1, WHOLE BLOOD (BKR [facility])on 05-11-2024 [facility] VITAMIN B1 (THIAMINE), BLOOD, LC/MS/MS 108 nmol/L Normal 78-185 [facility] Comment on above: Order Comment: These orders are set for an approximate date - they can be drawn up to 3 months prior to the Expected Date on this Req. Please send results to: [address] [place] [address] - [phone] And if not done at a [facility], please send to: [facility] - [address] [place] [address], [address], [address] Patient Name: Anne Marie Tran 1995 Order Created by : Peggy Friedman MA Result Comment: Vitamin supplementation within 24 hours prior to blood draw may affect the accuracy of the results. This test was developed and its analytical performance characteristics have been determined by [facility] [place], [place]. It has not been cleared or approved by the U.S. Food and Drug Administration. This assay has been validated pursuant to the CLIA regulations and is used for clinical purposes. Test Performed by [facility], [facility], [address] [place] [address] Julius Seth M.D., Ph.D., Director of Laboratories , CLIA [id number] Performed By: #### L AB68, [id number], LAB67, LAB17, LAB18, LAB69 #### Mitigation Supervisor: HENNY HEATON ([phone]) [facility] [address] [place] [address] VITAMIN B12on 05-11-2024 Cobalamin (Vitamin B12) [Mass/Vol] 300 pg/mL Normal 213-816 [facility] Comment on above: Order Comment: These orders are set for an approximate date - they can be drawn up to 3 months prior to the Expected Date on this Req. Please send results to: [address] [place] [address] - [phone] And if not done at a [facility], please send to: [facility] - [address] [place] [address], [address], [address] Patient Name: Anne Marie Peterson - 1995 Order Created by : Peggy Friedman MA Performed By: #### L AB68, UQV132, LAB67, LAB17, LAB18, LAB69 #### Mitigation Supervisor: HENNY HEATON ([phone]) [facility] ([facility]) [address] [place] [address] VITAMIN D DEFICIENCY SCREENI NG (VIT D 25)on 05-11-2024 VIT D 25-OH, TOTAL 14 ng/mL Low See comment [facility] Comment on above: Result Comment: JENNIFERE R COMMENTS: These orders are set for an approximate date - they can be drawn up to 3 months prior to the Expected Date on this Req. Please send results to: [address] [place] [address] - [phone] And if not done at a [facility], please send to: [place] [address] Patient Name: Anne Marie Peterson - 1995 Order Created by : Yeimy Fragoso LPN Target concentration: 30 - 40 ng/mL; toxicity seen at concentrations >100 ng/mL Less than 20 ng/mL: Indicative of Vit D deficiency Test performed by [facility], measuring Total Vitamin D, not individual fractions. Performed By: #### L AB68, [id number], LAB67, LAB17, LAB18, LAB69 #### Mitigation Supervisor: HENNY HEATON ([phone]) [facility] ([facility]) [address] [place] [address] ZINC (BKR [facility])on [facility] ZINC 60 mcg/dL Normal 60-130 [facility] Comment on above: Order Comment: These orders are set for an approximate date - they can be drawn up to 3 months prior to the Expected Date on this Req.Please send results to: [address] [place] [address] - [phone] if not done at a [facility], please send to:[address], [address], [address]Cpojd: [phone] Rnkvjkl Name: Anne Marie Peterson - 1995Order Created by : Yeimy Fragoso LPN Result Comment: This test was developed and its analytical performance characteristics have been determined by [facility] [place]. It has not been cleared or approved by the U.S. Food and Drug Administration. This assay has been validated pursuant to the CLIA regulations and is used for clinical purposes. Test Performed by [facility], [facility], [address] [place] [address] Julius Seth M.D., Ph.D., Director of Laboratories , CLIA [id number] Performed By: #### L AB68, [id number], LAB67, LAB17, LAB18, LAB69 #### Mitigation Supervisor: HENNY HEATON ([phone]) [facility] ([facility]) [address] [place] [address] Transvaginal w/Preg USon Transvaginal w/Preg US Normal [facility] HCG ( test) QlOrder ed By: Peggy Sanchez on 05-05-2024 Human Chorionic Gonadotropin, Quant 27668 mIU/mL High <[address] [facility] Comment on above: Gestational Age0.2-1 Week: 5-50 mIU/mL1-2 Weeks: 50-500 mIU/mL2-3 Weeks: 100-5000 mIU/mL3-4 Weeks: 500-10,000 mIU/mL4-5 Weeks:1000-50,000 mIU/mL5-6 Weeks: 10,000-100,000 mIU/mL6-8 Weeks: 15,000-200,000 mIU/mL2-3 Months:10,000-100,000 mIU/mL Serum human chorionic gonado tropin detection for pregnancyOrdered By: Peggy Sanchez on 05-05-2024 HCG ( test) Ql [address] mIU/mL High <[address] [facility] Comment on above: Gestational Age0.2-1 Week: 5-50 mIU/mL1-2 Weeks: 50-500 mIU/mL2-3 Weeks: 100-5000 mIU/mL3-4 Weeks: 500-10,000 mIU/mL4-5 Weeks:1000-50,000 mIU/mL5-6 Weeks: 10,000-100,000 mIU/mL6-8 Weeks: 15,000-200,000 mIU/mL2-3 Months:10,000-100,000 mIU/mL hCG Titer Quant., Serumon HCG QUANT. 12947 mIU/mL High <9 non-preg [facility] Comment on above: Result Comment: Gest ational Age0.2-1 Week: 5-50 mIU/mL1-2 Weeks: 50-500 mIU/mL2-3 Weeks: 100-5000 mIU/mL3-4 Weeks: 500-10,000 mIU/mL4-5 Weeks:1000-50,000 mIU/mL5-6 Weeks: 10,000-100,000 mIU/mL6-8 Weeks: 15,000-200,000 mIU/mL2-3 Months:10,000-100,000 mIU/mL Performed By: #### L 700.8000 ####[facility] [address] [place], [address] HCG ( test) QlOrder ed By: Peggy Sanchez on 05-02-2024 Human Chorionic Gonadotropin, Quant 9318 mIU/mL High <[address] [facility] Comment on above: Gestational Age0.2-1 Week: 5-50 mIU/mL1-2 Weeks: 50-500 mIU/mL2-3 Weeks: 100-5000 mIU/mL3-4 Weeks: 500-10,000 mIU/mL4-5 Weeks:1000-50,000 mIU/mL5-6 Weeks: 10,000-100,000 mIU/mL6-8 Weeks: 15,000-200,000 mIU/mL2-3 Months:10,000-100,000 mIU/mL Serum human chorionic gonado tropin detection for pregnancyOrdered By: Peggy Sanchez on 05-02-2024 HCG ( test) Ql 9318 mIU/mL High <[address] [facility] Comment on above: Gestational Age0.2-1 Week: 5-50 mIU/mL1-2 Weeks: 50-500 mIU/mL2-3 Weeks: 100-5000 mIU/mL3-4 Weeks: 500-10,000 mIU/mL4-5 Weeks:1000-50,000 mIU/mL5-6 Weeks: 10,000-100,000 mIU/mL6-8 Weeks: 15,000-200,000 mIU/mL2-3 Months:10,000-100,000 mIU/mL hCG Titer Quant., Serumon HCG QUANT. 9318 mIU/mL High <9 non-preg [facility] Comment on above: Result Comment: Gest ational Age0.2-1 Week: 5-50 mIU/mL1-2 Weeks: 50-500 mIU/mL2-3 Weeks: 100-5000 mIU/mL3-4 Weeks: 500-10,000 mIU/mL4-5 Weeks:1000-50,000 mIU/mL5-6 Weeks: 10,000-100,000 mIU/mL6-8 Weeks: 15,000-200,000 mIU/mL2-3 Months:10,000-100,000 mIU/mL Performed By: #### L 700.8000 ####[facility] [address] [place], [address] Transvaginal w/Preg USon Transvaginal w/Preg US Normal [facility] BUN/creatinine ratioOrdered By: Laurence Mccrary on 04-21-2024 Urea nitrogen/Creatinine [Mass ratio] 14.0 mg/mg 10-[address] [facility] Bilirubin, totalOrdered By: Laurence Mccrary on 04-21-2024 Bilirubin [Mass/Vol] 0.62 mg/dL 0.00-1.30 [facility] Carbon dioxide measurementOr dered By: Laurence Mccrary on 04-21-2024 CO2 [Moles/Vol] 24.6 mmol/L 22.0-29.[address] [facility] Chloride measurementOrdered By: Laurence Mccrary on 04-21-2024 Chloride [Moles/Vol] 104 mmol/L 96-108 [facility] Comprehensive Metabolic Prof ilon 04-21-2024 Albumin [Mass/Vol] 4.1 g/dL Normal 3.5-5.0 [facility] Comment on above: Performed By: #### L 500.4050 ####[facility] [address] [place], [address] Albumin/Globulin [Mass ratio] 1.3 {ratio} Normal 0.9-2.[address] [facility] Comment on above: Performed By: #### L 500.4050 ####[facility] [address] [place], [address] ALK PHOS 74 U/L Normal 35-[address] [facility] Comment on above: Performed By: #### L 500.4050 ####[facility] [address] [place], [address] ALT [Catalytic activity/Vol] 19 U/L Normal <=[address] [facility] Comment on above: Performed By: #### L 500.4050 ####[facility] [address] [place], [address] Anion gap [Moles/Vol] 9 mmol/L Normal 5-15 [facility] Comment on above: Performed By: #### L 500.4050 ####[facility] [address] [place], [address] AST [Catalytic activity/Vol] 19 U/L Normal <=[address] [facility] Comment on above: Performed By: #### L 500.4050 ####[facility] [address] [place], [address] Bilirubin [Mass/Vol] 0.62 mg/dL Normal 0.00-1.30 [facility] Comment on above: Performed By: #### L 500.4050 ####[facility] [address] [place], [address] BUN/CRE 14.0 RATIO Normal 10-[address] [facility] Comment on above: Performed By: #### L 500.4050 ####[facility] [address] [place], [address] Calcium [Mass/Vol] 9.3 mg/dL Normal 7.6-11.0 [facility] Comment on above: Performed By: #### L 500.4050 ####[facility] [address] [place], [address] Chloride [Moles/Vol] 104 mmol/L Normal 96-108 [facility] Comment on above: Performed By: #### L 500.4050 ####[facility] [address] [place], [address] CO2 [Moles/Vol] 24.6 mmol/L Normal 22.0-29.[address] [facility] Comment on above: Performed By: #### L 500.4050 ####[facility] [address] [place], [address] Creatinine [Mass/Vol] 0.60 mg/dL Low 0.70-1.20 [facility] Comment on above: Performed By: #### L 500.4050 ####[facility] [address] [place], [address] GFR/1.73 sq M.predicted among non-blacks MDRD (S/P/Bld) [Vol rate/Area] 125 mL/min/{1.73_m2} Normal >[address] [facility] Comment on above: Result Comment: mL/m in/1.73m2 CKD-EPI Creatinine Equation (2020) Performed By: #### L 500.4050 ####[facility] [address] [place], [address] Globulin (S) [Mass/Vol] 3.2 g/dL Normal 2.2-4.2 [facility] Comment on above: Performed By: #### L 500.4050 ####[facility] [address] [place], [address] Glucose [Mass/Vol] 92 mg/dL Normal 70-99 [facility] Comment on above: Performed By: #### L 500.4050 ####[facility] [address] [place], [address] Potassium [Moles/Vol] 4.3 mmol/L Normal 3.3-5.1 [facility] Comment on above: Performed By: #### L 500.4050 ####[facility] [address] [place], [address] Sodium [Moles/Vol] 138 mmol/L Normal 133-145 [facility] Comment on above: Performed By: #### L 500.4050 ####[facility] [address] [place], [address] T PROT 7.3 g/dL Normal 5.9-8.[address] [facility] Comment on above: Performed By: #### L 500.4050 ####[facility] [address] [place], [address] Urea nitrogen [Mass/Vol] 8 mg/dL Normal 4-[address] [facility] Comment on above: Performed By: #### L 500.4050 ####[facility] [address] [place], [address] GFR/1.73 sq M.predicted miryam g non-blacks MDRD (S/P/Bld) [Vol rate/Area]Ordered By: Laurence Mccrary on 04-21-2024 Estimated GFR (MDRD) Non-Af Amer [address] >[address] [facility] Comment on above: mL/min/1.73m2 CKD-EP I Creatinine Equation (2020) Gastroenterology Visit Repor ton 04-21-2024 Gastroenterology Visit Report Normal [facility] Glomerular filtration rate ( GFR) estimation/1.73 sq m using serum, plasma, or whole bOrdered By: Laurence Mccrary on 04-21-2024 GFR/1.73 sq M.predicted among non-blacks MDRD (S/P/Bld) [Vol rate/Area] 125 mL/min/{1.73_m2} >[address] [facility] Comment on above: mL/min/1.73m2 CKD-EP I Creatinine Equation (2020) Laboratory - Chemistry and C hemistry - challengeOrdered By: Laurence Mccrary on 04-21-2024 AST [Catalytic activity/Vol] 19 U/L <[address] [facility] Serum creatinine measurement (mass/volume)Ordered By: Laurence Mccrary on 04-21-2024 Creatinine [Mass/Vol] 0.60 mg/dL Low 0.70-1.20 [facility] Serum globulin measurementOr dered By: Laurence Mccrary on 04-21-2024 Globulin (S) [Mass/Vol] 3.2 g/dL 2.2-4.2 [facility] Serum glucose measurement (m ass/volume)Ordered By: Laurence Mccrary on 04-21-2024 Glucose [Mass/Vol] 92 mg/dL 70-99 [facility] Serum or plasma alanine barth otransferase (ALT) measurementOrdered By: Laurence Mccrary on 04-21-2024 ALT [Catalytic activity/Vol] 19 U/L <[address] [facility] Serum or plasma albumin janette urement (mass/volume)Ordered By: Laurence Mccrary on 04-21-2024 Albumin [Mass/Vol] 4.1 g/dL 3.5-5.0 [facility] Serum or plasma albumin/glob ulin mass ratioOrdered By: Laurence Mccrary on 04-21-2024 Albumin/Globulin [Mass ratio] 1.3 {ratio} 0.9-2.[address] [facility] Serum or plasma alkaline luz marina sphatase measurementOrdered By: Laurence Mccrary on 04-21-2024 ALP [Catalytic activity/Vol] 74 U/L 35-[address] [facility] Serum or plasma anion gap de termination (moles/volume)Ordered By: Laurence Mccrary on 04-21-2024 Anion gap [Moles/Vol] 9 mmol/L 5-15 [facility] Serum or plasma calcium janette urement (mass/volume)Ordered By: Laurence Mccrary on 04-21-2024 Calcium [Mass/Vol] 9.3 mg/dL 7.6-11.0 [facility] Serum or plasma potassium me asurementOrdered By: Laurence Mccrary on 04-21-2024 Potassium [Moles/Vol] 4.3 mmol/L 3.3-5.1 [facility] Serum or plasma sodium measu rement (moles/volume)Ordered By: Laurence Mccrary on 04-21-2024 Sodium [Moles/Vol] 138 mmol/L 133-145 [facility] Serum or plasma urea nitroge n measurement (mass/volume)Ordered By: Laurence Mccrary on 04-21-2024 Urea nitrogen [Mass/Vol] 8 mg/dL 4-[address] [facility] Total proteinOrdered By: Lorraine Mccrary on 04-21-2024 Protein [Mass/Vol] 7.3 g/dL 5.9-8.4 [facility] HCG ( test) QlOrder ed By: Peggy Sanchez on 04-20-2024 Human Chorionic Gonadotropin, Quant 174 mIU/mL High <[address] [facility] Comment on above: Gestational Age0.2-1 Week: 5-50 mIU/mL1-2 Weeks: 50-500 mIU/mL2-3 Weeks: 100-5000 mIU/mL3-4 Weeks: 500-10,000 mIU/mL4-5 Weeks:1000-50,000 mIU/mL5-6 Weeks: 10,000-100,000 mIU/mL6-8 Weeks: 15,000-200,000 mIU/mL2-3 Months:10,000-100,000 mIU/mL Serum human chorionic gonado tropin detection for pregnancyOrdered By: Peggy Sanchez on 04-20-2024 HCG ( test) Ql 174 mIU/mL High <9 [facility] Comment on above: Gestational Age0.2-1 Week: 5-50 mIU/mL1-2 Weeks: 50-500 mIU/mL2-3 Weeks: 100-5000 mIU/mL3-4 Weeks: 500-10,000 mIU/mL4-5 Weeks:1000-50,000 mIU/mL5-6 Weeks: 10,000-100,000 mIU/mL6-8 Weeks: 15,000-200,000 mIU/mL2-3 Months:10,000-100,000 mIU/mL hCG Titer Quant., Serumon HCG QUANT. 174 mIU/mL High <9 non-preg [facility] Comment on above: Result Comment: Gest ational Age0.2-1 Week: 5-50 mIU/mL1-2 Weeks: 50-500 mIU/mL2-3 Weeks: 100-5000 mIU/mL3-4 Weeks: 500-10,000 mIU/mL4-5 Weeks:1000-50,000 mIU/mL5-6 Weeks: 10,000-100,000 mIU/mL6-8 Weeks: 15,000-200,000 mIU/mL2-3 Months:10,000-100,000 mIU/mL Performed By: #### L 700.8000 ####[facility] [address] [place], [address] HCG ( test) QlOrder ed By: Peggy Sanchez on 04-18-2024 Human Chorionic Gonadotropin, Quant 67 mIU/mL High <[address] [facility] Comment on above: Gestational Age0.2-1 Week: 5-50 mIU/mL1-2 Weeks: 50-500 mIU/mL2-3 Weeks: 100-5000 mIU/mL3-4 Weeks: 500-10,000 mIU/mL4-5 Weeks:1000-50,000 mIU/mL5-6 Weeks: 10,000-100,000 mIU/mL6-8 Weeks: 15,000-200,000 mIU/mL2-3 Months:10,000-100,000 mIU/mL Serum human chorionic gonado tropin detection for pregnancyOrdered By: Peggy Sanchez on 04-18-2024 HCG ( test) Ql 67 mIU/mL High <9 [facility] Comment on above: Gestational Age0.2-1 Week: 5-50 mIU/mL1-2 Weeks: 50-500 mIU/mL2-3 Weeks: 100-5000 mIU/mL3-4 Weeks: 500-10,000 mIU/mL4-5 Weeks:1000-50,000 mIU/mL5-6 Weeks: 10,000-100,000 mIU/mL6-8 Weeks: 15,000-200,000 mIU/mL2-3 Months:10,000-100,000 mIU/mL hCG Titer Quant., Serumon HCG QUANT. 67 mIU/mL High <9 non-preg [facility] Comment on above: Result Comment: Gest ational Age0.2-1 Week: 5-50 mIU/mL1-2 Weeks: 50-500 mIU/mL2-3 Weeks: 100-5000 mIU/mL3-4 Weeks: 500-10,000 mIU/mL4-5 Weeks:1000-50,000 mIU/mL5-6 Weeks: 10,000-100,000 mIU/mL6-8 Weeks: 15,000-200,000 mIU/mL2-3 Months:10,000-100,000 mIU/mL Performed By: #### L 700.8000 ####[facility] [address] [place], [place], [id number] PREG SERUM QUANTon 5 HCG QUANTITATIVE 2 mIU/mL Normal 0 - 6 [facility] Comment on above: Result Comment: Toña colvin Range: Male: <5 Female: Non: <5 1 [...] 3RD TRIMESTER 1000-50,000 Performed By: #### 2 [id number] #### [facility],[address] [place] [address] PREG SERUM QUANTon 5 HCG QUANTITATIVE 28 mIU/mL High 0 - 6 [facility] Comment on above: Result Comment: Toña colvin Range: Male: <5 Female: Non: <5 1 [...] 3RD TRIMESTER 1000-50,000 Performed By: #### 2 [id number] #### [facility],[address] [place] [address] HCG ( test) QlOrder ed By: Peggy Sanchez on 03-13-2024 Human Chorionic Gonadotropin, Quant 36 mIU/mL High <[address] [facility] Comment on above: hCG levels with Gest ational AgeGestational Age hCG mIU/mL (IU/L)0.2 - 1 week 5 - 501-2 weeks 50 - 5002-3 weeks 100 - 37655-8 weeks 500 - 935991-2 weeks 1000 - 353892-2 weeks 01079 - 100,0006-8 weeks 79121 - 200,0002-3 months 29913 - 100,000 [facility] Reporton 03-13-2024 [facility] Report Normal [facility] Serum human chorionic gonado tropin detection for pregnancyOrdered By: Peggy Sanchez on 03-13-2024 HCG ( test) Ql 36 mIU/mL High <4 [facility] Comment on above: hCG levels with Gest ational AgeGestational Age hCG mIU/mL (IU/L)0.2 - 1 week 5 - 501-2 weeks 50 - 5002-3 weeks 100 - 03760-8 weeks 500 - 193959-8 weeks 1000 - 596448-9 weeks 91944 - 100,0006-8 weeks 03045 - 200,0002-3 months 20165 - 100,000 hCG Titer Quant., Serumon HCG QUANT. 36 mIU/mL High 1-[address] [facility] Comment on above: Result Comment: hCG levels with Gestational AgeGestational Age hCG mIU/mL (IU/L)0.2 - 1 week 5 - 501-2 weeks 50 - 5002-3 weeks 100 - 91108-4 weeks 500 - 716768-4 weeks 1000 - 590202-9 weeks 29485 - 100,0006-8 weeks 46783 - 200,0002-3 months 59132 - 100,000 Performed By: #### L 700.8000 ####[facility] [address] [place], [address] 36on 03-10-2024 36 Patient scheduled testing as follows: Name of Test: IV Iron infusion Location of Test (full address): [address] [facility] Date/Time of Test: @ 2;00 PM [] Patient made aware of the above testing information and prep. Sent my chart message Normal [facility] Absolute lymphocyte countOrd ered By: Fernando Al on 03-10-2024 Lymphocytes Auto (Unsp spec) [#/Vol] 2.09 10*3/uL 0.83-4.[address] [facility] Absolute neutrophil countOrd ered By: Fernando lA on 03-10-2024 Neutrophils (Bld) [#/Vol] 4.6 10*3/uL 2.0-7.[address] [facility] Albumin to globulin ratioOrd ered By: Fernando Al on 03-10-2024 Albumin/Globulin [Mass ratio] 0.9 {ratio} 0.9-2.[address] [facility] Automated lymphocyte count a s percentage of total leukocytesOrdered By: Fernando Al on 03-10-2024 Lymphocytes/100 WBC Auto (Unsp spec) 29.2 % 19-[address] [facility] Basophil percentageOrdered B y: Fernando Al on 03-10-2024 Basophils/100 WBC (Bld) 0.4 % 0-1 [facility] Bilirubin Test strip Ql (U)O rdered By: Fernando Al on 03-10-2024 Bilirubin Ql (U) Negative Negative [facility] Bilirubin, totalOrdered By: Fernando Al on 03-10-2024 Bilirubin [Mass/Vol] 0.60 mg/dL 0.20-1.00 [facility] Comment on above: For patients on eltr ombopag therapy, use of Dimension [place] TBIL is not recommended. Blood urea nitrogen (BUN)/cr eatinine ratioOrdered By: Fernando Al on 03-10-2024 Urea nitrogen/Creatinine [Mass ratio] 11.4 mg/mg 10-[address] [facility] CBC W/Diff, Automatedon 02-22 Absolute Lymph 2.09 X10 3/uL Normal 0.83-4.[address] [facility] Comment on above: Performed By: #### L 500.4050, L100.0100 ####[facility] [address] [place], [address] Absolute Neut 4.6 X10 3/uL Normal 2.0-7.[address] [facility] Comment on above: Performed By: #### L 500.4050, L100.0100 ####[facility] [address] [place], [address] Basophils/100 WBC (Bld) 0.4 % Normal 0-1 [facility] Comment on above: Performed By: #### L 500.4050, L100.0100 ####[facility] [address] [place], [address] Eosinophils/100 WBC (Bld) 0.8 % Normal 0-[address] [facility] Comment on above: Performed By: #### L 500.4050, L100.0100 ####[facility] [address] [place], [address] Erythrocyte distribution width (RBC) [Ratio] 17.2 % High 11.6-14.[address] [facility] Comment on above: Performed By: #### L 500.4050, L100.0100 ####[facility] [address] [place], [address] Hematocrit (Bld) [Volume fraction] 40.7 % Normal 37-[address] [facility] Comment on above: Performed By: #### L 500.4050, L100.0100 ####[facility] [address] [place], [address] Hemoglobin (Bld) [Mass/Vol] 12.4 g/dL Normal 12.0-15.[address] [facility] Comment on above: Performed By: #### L 500.4050, L100.0100 ####[facility] [address] [place], [address] IG% 0.300 Normal 0.0-0.[address] [facility] Comment on above: Result Comment: IG% - Immature Granulocytes (promyelocytes, myelocytes andmetamyelocytes) > 1% indicates that a LEFT SHIFT is Present. Performed By: #### L 500.4050, L100.0100 ####[facility] [address] [place], [address] Lymphocytes/100 WBC (Bld) 29.2 % Normal 19-[address] [facility] Comment on above: Performed By: #### L 500.4050, L100.0100 ####[facility] [address] [place], [address] MCH (RBC) [Entitic mass] 20.8 pg Low 27.0-32.[address] [facility] Comment on above: Performed By: #### L 500.4050, L100.0100 ####[facility] [address] [place], [address] MCHC (RBC) [Mass/Vol] 30.5 g/dL Low 32-36 [facility] Comment on above: Performed By: #### L 500.4050, L100.0100 ####[facility] [address] [place], [address] MCV (RBC) [Entitic vol] 68.2 fL Low 81-99 [facility] Comment on above: Performed By: #### L 500.4050, L100.0100 ####[facility] [address] [place], [address] Monocytes/100 WBC (Bld) 5.6 % Normal 0-10 [facility] Comment on above: Performed By: #### L 500.4050, L100.0100 ####[facility] [address] [place], [address] Neutrophils/100 WBC (Bld) 63.7 % Normal 47-[address] [facility] Comment on above: Performed By: #### L 500.4050, L100.0100 ####[facility] [address] [place], [address] Nucleated RBC (Bld) [#/Vol] 0 10*3/uL Normal 0-[address] [facility] Comment on above: Performed By: #### L 500.4050, L100.0100 ####[facility] [address] [place], [address] Platelet mean volume (Bld) [Entitic vol] 11.3 fL Normal 6.2-12.[address] [facility] Comment on above: Performed By: #### L 500.4050, L100.0100 ####[facility] [address] [place], [address] Platelets (Bld) [#/Vol] 459 10*3/uL High 150-[address] [facility] Comment on above: Performed By: #### L 500.4050, L100.0100 ####[facility] [address] [place], [address] RBC (Bld) [#/Vol] 5.97 10*6/uL High 4.2-5.4 [facility] Comment on above: Performed By: #### L 500.4050, L100.0100 ####[facility] [address] [place], [address] RDW SD 39.2 fl Normal 35.1-43.[address] [facility] Comment on above: Performed By: #### L 500.4050, L100.0100 ####[facility] [address] [place], [address] WBC (Bld) [#/Vol] 7.2 10*3/uL Normal 4.4-11.0 [facility] Comment on above: Performed By: #### L 500.4050, L100.0100 ####[facility] [address] [place], [address] Carbon dioxide measurementOr dered By: Fernando Al on 03-10-2024 CO2 [Moles/Vol] 28.0 mmol/L 21.0-32.[address] [facility] Chloride measurementOrdered By: Fernando Al on 03-10-2024 Chloride [Moles/Vol] 103 mmol/L 98-107 [facility] Comprehensive Metabolic Prof ilon 03-10-2024 Albumin [Mass/Vol] 4.0 g/dL Normal 3.2-5.0 [facility] Comment on above: Performed By: #### L 500.4050, L100.0100 ####[facility] [address] [place], [address] Albumin/Globulin [Mass ratio] 0.9 {ratio} Normal 0.9-2.[address] [facility] Comment on above: Performed By: #### L 500.4050, L100.0100 ####[facility] [address] [place], [address] ALK P 87 U/L Normal 45-[address] [facility] Comment on above: Performed By: #### L 500.4050, L100.0100 ####[facility] [address] [place], [address] ALT [Catalytic activity/Vol] 31 U/L Normal 13-[address] [facility] Comment on above: Performed By: #### L 500.4050, L100.0100 ####[facility] [address] [place], [address] AST [Catalytic activity/Vol] 22 U/L Normal 15-[address] [facility] Comment on above: Performed By: #### L 500.4050, L100.0100 ####[facility] [address] [place], [address] Bilirubin [Mass/Vol] 0.60 mg/dL Normal 0.20-1.00 [facility] Comment on above: Result Comment: For patients on eltrombopag therapy, use of Dimension [place] TBIL is not recommended. Performed By: #### L 500.4050, L100.0100 ####[facility] [address] [place], [address] BUN/CRE 11.4 RATIO Normal 10-[address] [facility] Comment on above: Performed By: #### L 500.4050, L100.0100 ####[facility] [address] [place], [address] CA,Total 9.4 mg/dL Normal 8.5-10.[address] [facility] Comment on above: Performed By: #### L 500.4050, L100.0100 ####[facility] [address] [place], [address] Chloride [Moles/Vol] 103 mmol/L Normal 98-107 [facility] Comment on above: Performed By: #### L 500.4050, L100.0100 ####[facility] [address] [place], [address] CO2 [Moles/Vol] 28.0 mmol/L Normal 21.0-32.[address] [facility] Comment on above: Performed By: #### L 500.4050, L100.0100 ####[facility] [address] [place], [address] Creatinine [Mass/Vol] 0.70 mg/dL Normal 0.55-1.02 [facility] Comment on above: Result Comment: The validity of the calculated GFR GFRAA in patients over70 years has not been determined. Clinical correlation isessential. Performed By: #### L 500.4050, L100.0100 ####[facility] [address] [place], [address] ECRCL 157.00 ml/min Normal [facility] Comment on above: Performed By: #### L 500.4050, L100.0100 ####[facility] [address] [place], [address] EST GFR - AA 127 mL/min Normal >[address] [facility] Comment on above: Result Comment: Afri can Ukrainian GFR Calc Performed By: #### L 500.4050, L100.0100 ####[facility] [address] [place], [address] GAP 6 Normal 5-[address] [facility] Comment on above: Performed By: #### L 500.4050, L100.0100 ####[facility] [address] [place], [address] GFR/1.73 sq M.predicted among non-blacks MDRD (S/P/Bld) [Vol rate/Area] 105 mL/min/{1.73_m2} Normal >[address] [facility] Comment on above: Result Comment: Non- GFR Calc Performed By: #### L 500.4050, L100.0100 ####[facility] [address] [place], [address] Globulin (S) [Mass/Vol] 4.4 g/dL High 2.2-4.2 [facility] Comment on above: Performed By: #### L 500.4050, L100.0100 ####[facility] [address] [place], [address] Glucose [Mass/Vol] 94 mg/dL Normal 74-106 [facility] Comment on above: Performed By: #### L 500.4050, L100.0100 ####[facility] [address] [place], [address] Potassium [Moles/Vol] 3.5 mmol/L Normal 3.5-5.1 [facility] Comment on above: Performed By: #### L 500.4050, L100.0100 ####[facility] [address] [place], [address] Sodium [Moles/Vol] 137 mmol/L Normal 136-145 [facility] Comment on above: Performed By: #### L 500.4050, L100.0100 ####[facility] [address] [place], [address] T PROT 8.4 g/dL High 6.4-8.[address] [facility] Comment on above: Performed By: #### L 500.4050, L100.0100 ####[facility] [address] [place], [address] Urea nitrogen [Mass/Vol] 8 mg/dL Normal 7-[address] [facility] Comment on above: Performed By: #### L 500.4050, L100.0100 ####[facility] [address] [place], [address] Emergency Department Summary on 03-10-2024 Emergency Department Summary Normal [facility] Eosinophil percentageOrdered By: Fernando Al on 03-10-2024 Eosinophils/100 WBC (Bld) 0.8 % 0-[address] [facility] Epithelial cells.squamous LM Ql (Urine sed)Ordered By: Fernando Al on 03-10-2024 Epithelial cells.squamous LM.HPF (Urine sed) [#/Area] 5 /[HPF] 5-[address] [facility] Erythrocyte distribution wid th ratioOrdered By: Fernando Al on 03-10-2024 Erythrocyte distribution width (RBC) [Ratio] 17.2 % High 11.6-14.[address] [facility] Erythrocyte distribution wid th standard deviationOrdered By: Fernando Al on 03-10-2024 Erythrocyte distribution width (RBC) [Entitic vol] 39.2 fL 35.1-43.[address] [facility] Erythrocyte distribution width (RBC) [Ratio] 39.2 fl 35.1-43.[address] [facility] Estimated glomerular filtrat ion rate (GFR) AmericanOrdered By: Fernando Al on 03-10-2024 Estimated GFR (MDRD) Amer 127 mL/min >[address] [facility] Comment on above: GFR Calc Estimation of creatinine scar aranceOrdered By: Fernando Al on 03-10-2024 Estimated Creatinine Clearance Calc 157.00 ml/min [facility] Fine Granular Casts LM.LPF ( Urine sed) [#/Area]Ordered By: Fernando Al on 03-10-2024 Urine Fine Granular Casts 0-5 SEEN /lpf 0-[address] [facility] Glomerular filtration rate ( GFR) estimationOrdered By: Fernando Al on 03-10-2024 Estimated GFR (MDRD) Non-Af Amer 105 mL/min >[address] [facility] Comment on above: Non- GFR Calc GFR/1.73 sq M.predicted among non-blacks MDRD (S/P/Bld) [Vol rate/Area] 105 mL/min/{1.73_m2} >[address] [facility] Comment on above: Non- GFR Calc Glucose Ql (U)Ordered By: Claudio Al on 03-10-2024 Urine Glucose (UA) Normal mg/dl Normal [facility] Glucose measurementOrdered B y: Fernando Al on 03-10-2024 Glucose [Mass/Vol] 94 mg/dL 74-106 [facility] Hematocrit Auto (Bld) [Volum e fraction]Ordered By: Fernando Al on 03-10-2024 Hematocrit (Bld) [Volume fraction] 40.7 % 37-[address] [facility] Hemoglobin measurementOrdere d By: Fernando Al on 03-10-2024 Hemoglobin (Bld) [Mass/Vol] 12.4 g/dL 12.0-15.[address] [facility] Immature granulocytes/100 WB C Auto (Bld)Ordered By: Fernando Al on 03-10-2024 Immature granulocytes/100 WBC (Bld) 0.300 % 0.0-0.[address] [facility] Comment on above: IG% - Immature Granu locytes (promyelocytes, myelocytes and metamyelocytes) > 1% indicates that a LEFT SHIFT is Present. Ketones Test strip Ql (U)Ord ered By: Fernando Al on 03-10-2024 Ketones Ql (U) Negative Negative [facility] Laboratory - Chemistry and C hemistry - challengeOrdered By: Fernando Al on 03-10-2024 AST [Catalytic activity/Vol] 22 U/L 15-[address] [facility] Lymphocytes Auto (Unsp spec) [#/Vol]Ordered By: Fernando Al on 03-10-2024 Lymphocytes (Bld) [#/Vol] 2.09 10*3/uL 0.83-4.[address] [facility] Lymphocytes/100 WBC Auto (Un sp spec)Ordered By: Fernando Al on 03-10-2024 Lymphocytes/100 WBC (Bld) 29.2 % 19-[address] [facility] MCV (mean corpuscular volume ) determinationOrdered By: Fernando Al on 03-10-2024 MCV (RBC) [Entitic vol] 68.2 fL Low 81-99 [facility] Mean corpuscular hemoglobin (MCH) determinationOrdered By: Fernando Al on 03-10-2024 MCH (RBC) [Entitic mass] 20.8 pg Low 27.0-32.[address] [facility] Mean corpuscular hemoglobin concentration (MCHC) determinationOrdered By: Fernando Al on 03-10-2024 MCHC (RBC) [Mass/Vol] 30.5 g/dL Low 32-36 [facility] Mean platelet volume determi nationOrdered By: Fernando Al on 03-10-2024 Platelet mean volume (Bld) [Entitic vol] 11.3 fL 6.2-12.[address] [facility] Microscopic analysis of urin e for red blood cells (RBC)Ordered By: Fernando Al on 03-10-2024 Microscopic analysis of urine for red blood cells (RBC) 0 SEEN /hpf 0-[address] [facility] Urine RBC 0 SEEN /hpf 0-[address] [facility] Monocyte percentageOrdered B y: Fernando Al on 03-10-2024 Monocytes/100 WBC (Bld) 5.6 % 0-10 [facility] Mucus LM Ql (Urine sed)Order ed By: Fernando Al on 03-10-2024 Mucus Ql (Urine sed) 0 SEEN /hpf [facility] Neutrophil percentageOrdered By: Fernando Al on 03-10-2024 Neutrophils/100 WBC (Bld) 63.7 % 47-[address] [facility] Nitrite Test strip Ql (U)Ord ered By: Fernando Al on 03-10-2024 Nitrite Ql (U) Negative Negative [facility] Nucleated red blood cell per centageOrdered By: Fernando Al on 03-10-2024 Nucleated RBC/100 WBC (Bld) [Ratio] 0 % 0-[address] [facility] Platelet countOrdered By: Claudio Al on 03-10-2024 Platelets (Bld) [#/Vol] 459 10*3/uL High 150-[address] [facility] Potassium measurementOrdered By: Fernando Al on 03-10-2024 Potassium [Moles/Vol] 3.5 mmol/L 3.5-5.1 [facility] Protein Test strip Ql (U)Ord ered By: Fernando Al on 03-10-2024 Protein Ql (U) 15 mg/dl High Negative [facility] RBC Auto (Bld) [#/Vol]Ordere d By: Fernando Al on 03-10-2024 RBC (Bld) [#/Vol] 5.97 10*6/uL High 4.2-5.4 [facility] Serum anion gap measurementO rdered By: Fernando Al on 03-10-2024 Anion gap [Moles/Vol] 6 mmol/L 5-15 [facility] Serum globulin measurementOr dered By: Fernando Al on 03-10-2024 Globulin (S) [Mass/Vol] 4.4 g/dL High 2.2-4.2 [facility] Serum or plasma alanine barth otransferase (ALT) measurementOrdered By: Fernando Al on 03-10-2024 ALT [Catalytic activity/Vol] 31 U/L 13-[address] [facility] Serum or plasma albumin janette urement (mass/volume)Ordered By: Fernando Al on 03-10-2024 Albumin [Mass/Vol] 4.0 g/dL 3.2-5.0 [facility] Serum or plasma alkaline luz marina sphatase measurementOrdered By: Fernando lA on 03-10-2024 ALP [Catalytic activity/Vol] 87 U/L 45-[address] [facility] Serum or plasma calcium janette urement (mass/volume)Ordered By: Fernando Al on 03-10-2024 Calcium [Mass/Vol] 9.4 mg/dL 8.5-10.1 [facility] Serum or plasma creatinine m easurement (mass/volume)Ordered By: Fernando Al on 03-10-2024 Creatinine [Mass/Vol] 0.70 mg/dL 0.55-1.02 [facility] Comment on above: The validity of the calculated GFR & GFRAA in patients over 70 years has not been determined. Clinical correlation is essential. Serum or plasma urea nitroge n measurement (mass/volume)Ordered By: Fernando Al on 03-10-2024 Urea nitrogen [Mass/Vol] 8 mg/dL 7-[address] [facility] Sodium levelOrdered By: Sergio Al on 03-10-2024 Sodium [Moles/Vol] 137 mmol/L 136-145 [facility] Squamous epithelial cells de tection in urine sediment by light microscopyOrdered By: Fernando Al on 03-10-2024 Epithelial cells.squamous LM Ql (Urine sed) 5-10 SEEN /hpf 5-[address] [facility] Total proteinOrdered By: Aditya Al on 03-10-2024 Protein [Mass/Vol] 8.4 g/dL High 6.4-8.2 [facility] Urinalysis, Completeon 03-10 CAST,FINE GRAN 0-5 SEEN Normal 0-[address] [facility] Comment on above: Order Comment: NOLVIA CTOR TO SPECIFY Performed By: #### L 400.0001 ####[facility] [address] [place], [place], [id number] BACTERIA 1+ /hpf Normal None Seen [facility] Comment on above: Order Comment: NOLVIA CTOR TO SPECIFY Performed By: #### L 400.0001 ####[facility] [address] [place], [address] EPI,SQUAMOUS 5-10 SEEN Normal 5-[address] [facility] Comment on above: Order Comment: NOLVIA CTOR TO SPECIFY Performed By: #### L 400.0001 ####[facility] [address] [place], [address] WBC 0-5 SEEN Normal 0-[address] [facility] Comment on above: Order Comment: NOLVIA CTOR TO SPECIFY Performed By: #### L 400.0001 ####[facility] [address] [place], [address] Mucus Ql (Urine sed) 0 SEEN Normal [facility] Comment on above: Order Comment: NOLVIA CTOR TO SPECIFY Performed By: #### L 400.0001 ####[facility] [address] [place], [address] RBC 0 SEEN Normal 0-[address] [facility] Comment on above: Order Comment: NOLVIA CTOR TO SPECIFY Performed By: #### L 400.0001 ####[facility] [address] [place], [address] Urine blood detectionOrdered By: Fernando Al on 03-10-2024 Urine Occult Blood Negative Negative [facility] Urine clarityOrdered By: Aditya Al on 03-10-2024 Clarity (U) Sl. Cloudy Clear [facility] Urine color determinationOrd ered By: Fernando Al on 03-10-2024 Color (U) Yellow Yellow [facility] Urine glucose detectionOrder ed By: Fernando Al on 03-10-2024 Glucose Ql (U) Normal mg/dl Normal [facility] Urine leukocyte esterase det ection by dipstickOrdered By: Fernando Al on 03-10-2024 Leukocyte esterase Test strip Ql (U) 25 /ul High Negative [facility] Urine pHOrdered By: Fernnado ham on 03-10-2024 pH (U) 7.0 [pH] 5.0 - 8.[address] [facility] Urine sediment bacteria coun t by microscopy (number/high power field)Ordered By: Fernando Al on 03-10-2024 Bacteria LM.HPF (Urine sed) [#/Area] 1 /[HPF] None Seen [facility] Urine sediment fine granular cast count by microscopy (number/low power field)Ordered By: Fernando Al on 03-10-2024 Fine Granular Casts LM.LPF (Urine sed) [#/Area] 0-5 SEEN /lpf 0-[address] [facility] Urine specific gravity measu rementOrdered By: Fernando Al on 03-10-2024 Specific gravity (U) [Rel density] 1.010 1.002-1.[address] [facility] Urine urobilinogen measureme ntOrdered By: Fernando Al on 03-10-2024 Urobilinogen Ql (U) 4 mg/dl High Normal [facility] Urobilinogen Ql (U)Ordered B y: Fernando Al on 03-10-2024 Urobilinogen (U) [Mass/Vol] 4 mg/dL High Normal [facility] White blood cell (WBC) count Ordered By: Fernando Al on 03-10-2024 WBC (Bld) [#/Vol] 7.2 10*3/uL 4.4-11.0 [facility] White blood cell countOrdere d By: Fernando Al on 03-10-2024 Urine WBC 0-5 SEEN /hpf 0-[address] [facility] White blood cell count 0-5 SEEN /hpf 0-[address] [facility] 36on 03-09-2024 36 Script / face sheet / labs faxed to Scott @ [phone], confirmation received. Normal [facility] HCG ( test) QlOrder ed By: Silviano Daley on 03-09-2024 Human Chorionic Gonadotropin, Quant 46 mIU/mL High <[address] [facility] Comment on above: hCG levels with Gest ational AgeGestational Age hCG mIU/mL (IU/L)0.2 - 1 week 5 - 501-2 weeks 50 - 5002-3 weeks 100 - 76798-3 weeks 500 - 243076-9 weeks 1000 - 634969-3 weeks 04550 - 100,0006-8 weeks 68633 - 200,0002-3 months 84461 - 100,000 Serum human chorionic gonado tropin detection for pregnancyOrdered By: Silviano Daley on 03-09-2024 HCG ( test) Ql 46 mIU/mL High <4 [facility] Comment on above: hCG levels with Gest ational AgeGestational Age hCG mIU/mL (IU/L)0.2 - 1 week 5 - 501-2 weeks 50 - 5002-3 weeks 100 - 60752-5 weeks 500 - 322995-9 weeks 1000 - 758651-1 weeks 57531 - 100,0006-8 weeks 77191 - 200,0002-3 months 97538 - 100,000 hCG Titer Quant., Serumon HCG QUANT. 46 mIU/mL High 1-[address] [facility] Comment on above: Result Comment: hCG levels with Gestational AgeGestational Age hCG mIU/mL (IU/L)0.2 - 1 week 5 - 501-2 weeks 50 - 5002-3 weeks 100 - 42788-7 weeks 500 - 517211-6 weeks 1000 - 019790-5 weeks 05414 - 100,0006-8 weeks 08072 - 200,0002-3 months 32177 - 100,000 Performed By: #### L 700.8000 ####[facility] [address] [place], [address] 36on 03-07-2024 36 PA submitted via [employer]. Normal [facility] 36 Changed infusions to [facility] due to facility preference. [facility] 36on 03-06-2024 36 Yes you may assist t o arrange iron infusions closer to patient's home to help patient be compliant with orders. Thank you. Normal [facility] 36 Please order Iron infusions. Per previous message patient lives 1 [place] 20 minutes away and does not think she will be able to afford to take that much time off work to travel up here on a weekly basis. Can I try to arrange this through a facility closer to her? Normal [facility] Anticardiolipin IgG, IgMon 0 03-06-2024 ANTICARDIO IgG < 9 Normal 0-[address] [facility] Comment on above: Result Comment: Nega tive: <15 Indeterminate: 15 - 20 Low-Med Positive: >20 - 80 High Positive: >80 Performed By: #### L 3100.8410, L700.8000, L100.0500, L4500.0100, L3410.2000 ####[facility] [address] [place], [place], [address] Anticardio.IgM < 9 Normal 0-[address] [facility] Comment on above: Result Comment: Nega tive: <13 Indeterminate: 13 - 20 Low-Med Positive: >20 - 80 High Positive: >80Performed at: - [facility] [address] [id number] Director: Ayo Burns MD, Phone: [phone] at: - [facility] [id number] Director: Xavier Salas PhD, Phone: [phone] Performed By: #### L 3100.8410, L700.8000, L100.0500, L4500.0100, L3410.1999 ####[facility] [address] [place], [place], [id number] Beta-2 Glycoprot IgG, A, 03-06-2024 B2 GLYCO I IGA <9 Normal 0-[address] [facility] Comment on above: Result Comment: Resu lt Units: GPI IgA unitsThe reference interval reflects a 3SD or 99th percentileinterval, which is thought to represent a potentiallyclinically significant result in accordance with theInternational Consensus Statement on the classificationcriteria for definitive antiphospholipid syndrome (APS). JThromb Haem 2006;4:295-306. Performed By: #### L 3100.8410, L700.8000, L100.0500, L4500.0100, L3410.1999 ####[facility] [address] [place], [address] B2 GLYCO I IGG <9 Normal 0-[address] [facility] Comment on above: Result Comment: Resu lt Units: GPI IgG unitsThe reference interval reflects a 3SD or 99th percentileinterval, which is thought to represent a potentiallyclinically significant result in accordance with theInternational Consensus Statement on the classificationcriteria for definitive antiphospholipid syndrome (APS). JThromb Haem 2006;4:295-306. Performed By: #### L 3100.8410, L700.8000, L100.0500, L4500.0100, L3410.1999 ####[facility] [address] [place], [address] B2 GLYCO I IGM <9 Normal 0-[address] [facility] Comment on above: Result Comment: Resu lt Units: GPI IgM unitsThe reference interval reflects a 3SD or 99th percentileinterval, which is thought to represent a potentiallyclinically significant result in accordance with theInternational Consensus Statement on the classificationcriteria for definitive antiphospholipid syndrome (APS). JThromb Haem 2006;4:295-306. Performed By: #### L 3100.8410, L700.8000, L100.0500, L4500.0100, L3410.1999 ####[facility] [address] [place], [address] Lupus Anticoagulant Compon 0 - aPTT Coag (Bld) [Time] 37.5 s Normal 0.0-43.5 [facility] Comment on above: Performed By: #### L 3100.8410, L700.8000, L100.0500, L4500.0100, L3410.1999 ####[facility] [address] [place], [address] DILUTE PT (dPT) 30.2 sec Normal 0.0-47.[address] [facility] Comment on above: Performed By: #### L 3100.8410, L700.8000, L100.0500, L4500.0100, L3410.1999 ####[facility] [address] [place], [address] dPT Conf. Ratio 0.93 Ratio Normal 0.00-1.[address] [facility] Comment on above: Performed By: #### L 3100.8410, L700.8000, L100.0500, L4500.0100, L3410.1999 ####[facility] [address] [place], [address] DRVVT 27.5 sec Normal 0.0-47.[address] [facility] Comment on above: Performed By: #### L 3100.8410, L700.8000, L100.0500, L4500.0100, L3410.2000 ####[facility] [address] [place], [address] Interpretation Comment: Normal . [facility] Comment on above: Result Comment: No l upus anticoagulant was detected. Performed By: #### L 3100.8410, L700.8000, L100.0500, L4500.0100, L3410.2000 ####[facility] [address] [place], [address] THROMBIN TIME 19.5 sec Normal 0.0-23.[address] [facility] Comment on above: Performed By: #### L 3100.8410, L700.8000, L100.0500, L4500.0100, L3410.2000 ####[facility] [address] [place], [address] 36on 03-04-2024 36 Pt noted with chronically low iron, RD recommending IV iron. Pt has been taking 4000 int units of vitamin d dialy, RD recommending increasing to 50,000 int units weekly for improvement in levels. Pharmacy pending Normal [facility] 36 DOS 05/10/23 LRYGB JZ Last OV: 11/15/2023 6M POP Next OV: 05/11/2024 12M POP Labs 02/11/2024 Zinc 55 low Vitamin D 14 low Iron 17 low Folate 3.8 low Please see MyChart for pt and RD encounter RD reaching out to review low levels. RD recommends IV iron x 4 doses (1 dose/week) Pending orders for Ferrlecit infusion. Please sign. Thank you! JACINTA Clinical Staff - please schedule infusions. Pt also noted with low vitamin D levels, RD inquiring into supplementation at this time d/t low levels. Low folate, RD assessing compliance with MVI regimen, Low zinc, RD recommending starting 50 mg of zinc daily for improvement. Pt response pending. Normal [facility] Beta 2 glycoprotein 1 IgA Ql (S)Ordered By: Peggy Sanchez on 03-03-2024 Atta-nolr-0-Glycoprotei n I IgA Ab <9 0-[address] [facility] Comment on above: Result Units: GPI Ig A unitsThe reference interval reflects a 3SD or 99th percentileinterval, which is thought to represent a potentiallyclinically significant result in accordance with theInternational Consensus Statement on the classificationcriteria for definitive antiphospholipid syndrome (APS). JThromb Haem 2006;4:295-306. Beta 2 glycoprotein 1 IgG Ql (S)Ordered By: Peggy Sanchez on 03-03-2024 Cktf-jhhc-6-Glycoprotei n I IgG Ab <9 0-[address] [facility] Comment on above: Result Units: GPI Ig G unitsThe reference interval reflects a 3SD or 99th percentileinterval, which is thought to represent a potentiallyclinically significant result in accordance with theInternational Consensus Statement on the classificationcriteria for definitive antiphospholipid syndrome (APS). JThromb Haem 2006;4:295-306. Beta 2 glycoprotein 1 IgM Ql (S)Ordered By: Peggy Sanchez on 03-03-2024 Bmhu-hxml-5-Glycoprotei n I IgM Ab <9 0-[address] [facility] Comment on above: Result Units: GPI Ig M unitsThe reference interval reflects a 3SD or 99th percentileinterval, which is thought to represent a potentiallyclinically significant result in accordance with theInternational Consensus Statement on the classificationcriteria for definitive antiphospholipid syndrome (APS). JThromb Haem 2006;4:295-306. CBC-Complete Blood Cnt No Di ffon 03-03-2024 Erythrocyte distribution width (RBC) [Ratio] 15.9 % High 11.6-14.[address] [facility] Comment on above: Performed By: #### L 3100.8410, L700.8000, L100.0500, L4500.0100, L3410.2000 ####[facility] [address] [place], [address] Hematocrit (Bld) [Volume fraction] 37.8 % Normal 37-[address] [facility] Comment on above: Performed By: #### L 3100.8410, L700.8000, L100.0500, L4500.0100, L3410.1999 ####[facility] [address] [place], [address] Hemoglobin (Bld) [Mass/Vol] 11.6 g/dL Low 12.0-15.[address] [facility] Comment on above: Performed By: #### L 3100.8410, L700.8000, L100.0500, L4500.0100, L3410.1999 ####[facility] [address] [place], [address] MCH (RBC) [Entitic mass] 20.8 pg Low 27.0-32.[address] [facility] Comment on above: Performed By: #### L 3100.8410, L700.8000, L100.0500, L4500.0100, L3410.1999 ####[facility] [address] [place], [address] MCHC (RBC) [Mass/Vol] 30.7 g/dL Low 32-36 [facility] Comment on above: Performed By: #### L 3100.8410, L700.8000, L100.0500, L4500.0100, L3410.1999 ####[facility] [address] [place], [address] MCV (RBC) [Entitic vol] 67.9 fL Low 81-99 [facility] Comment on above: Performed By: #### L 3100.8410, L700.8000, L100.0500, L4500.0100, L3410.1999 ####[facility] [address] [place], [address] Platelet mean volume (Bld) [Entitic vol] 10.6 fL Normal 6.2-12.[address] [facility] Comment on above: Performed By: #### L 3100.8410, L700.8000, L100.0500, L4500.0100, L3410.1999 ####[facility] [address] [place], [address] Platelets (Bld) [#/Vol] 415 10*3/uL Normal 150-[address] [facility] Comment on above: Performed By: #### L 3100.8410, L700.8000, L100.0500, L4500.0100, L3410.1999 ####[facility] [address] [place], [address] RBC (Bld) [#/Vol] 5.57 10*6/uL High 4.2-5.4 [facility] Comment on above: Performed By: #### L 3100.8410, L700.8000, L100.0500, L4500.0100, L3410.1999 ####[facility] [address] [place], [address] RDW SD 38.2 fl Normal 35.1-43.[address] [facility] Comment on above: Performed By: #### L 3100.8410, L700.8000, L100.0500, L4500.0100, L3410.1999 ####[facility] [address] [place], [address] WBC (Bld) [#/Vol] 8.0 10*3/uL Normal 4.4-11.0 [facility] Comment on above: Performed By: #### L 3100.8410, L700.8000, L100.0500, L4500.0100, L3410.1999 ####[facility] [address] [place], [address] Cardiolipin IgG IA Qn (S)Ord ered By: Peggy Sanchez on 03-03-2024 Anti-Cardiolipin IgG Antibody < 9 GPL U/mL 0-[address] [facility] Comment on above: Negative: <15 Indete rminate: 15 - 20 Low-Med Positive: >20 - 80 High Positive: >80 Dilute Isaac's viper venom timeOrdered By: Peggy Sanchez on 03-03-2024 dRVVT Coag (PPP) [Time] 27.5 s 0.0-47.0 [facility] Dilute prothrombin time rati o confirmationOrdered By: Peggy Sanchez on 03-03-2024 Prothrombin Time Ratio 0.93 Ratio 0.00-1.34 [facility] Erythrocyte distribution wid th ratioOrdered By: Peggy Sanchez on 03-03-2024 Erythrocyte distribution width (RBC) [Ratio] 15.9 % High 11.6-14.[address] [facility] Erythrocyte distribution wid th standard deviationOrdered By: Peggy Sanchez on 03-03-2024 Erythrocyte distribution width (RBC) [Entitic vol] 38.2 fL 35.1-43.[address] [facility] Erythrocyte distribution width (RBC) [Ratio] 38.2 fl 35.1-43.[address] [facility] HCG ( test) QlOrder ed By: Peggy Sanchez on 03-03-2024 Human Chorionic Gonadotropin, Quant 26 mIU/mL High <[address] [facility] Comment on above: hCG levels with Gest ational AgeGestational Age hCG mIU/mL (IU/L)0.2 - 1 week 5 - 501-2 weeks 50 - 5002-3 weeks 100 - 04657-2 weeks 500 - 423377-3 weeks 1000 - 878290-9 weeks 24071 - 100,0006-8 weeks 18181 - 200,0002-3 months 20179 - 100,000 Hematocrit Auto (Bld) [Volum e fraction]Ordered By: Peggy Sanchez on 03-03-2024 Hematocrit (Bld) [Volume fraction] 37.8 % 37-[address] [facility] Hemoglobin measurementOrdere d By: Peggy Sanchez on 03-03-2024 Hemoglobin (Bld) [Mass/Vol] 11.6 g/dL Low 12.0-15.[address] [facility] Interpretation of lupus anti coagulant assayOrdered By: Peggy Sanchez on 03-03-2024 Lupus Anticoagulant Interpretation Comment: . [facility] Comment on above: No lupus anticoagula nt was detected. Lupus anticoagulant neutrali zation dilute phospholipid time in platelet poor plasmaOrdered By: Peggy Sanchez on 03-03-2024 Prothrombin Time Diluted 30.2 sec 0.0-47.[address] [facility] Lupus anticoagulant-sensitiv e activated partial thromboplastin timeOrdered By: Peggy Sanchez on 03-03-2024 Lupus Anticoagulant APTT 37.5 sec 0.0-43.[address] [facility] MCV (mean corpuscular volume ) determinationOrdered By: Peggy Sanchez on 03-03-2024 MCV (RBC) [Entitic vol] 67.9 fL Low 81-99 [facility] Mean corpuscular hemoglobin (MCH) determinationOrdered By: Peggy Sanchez on 03-03-2024 MCH (RBC) [Entitic mass] 20.8 pg Low 27.0-32.[address] [facility] Mean corpuscular hemoglobin concentration (MCHC) determinationOrdered By: Peggy Sanchez on 03-03-2024 MCHC (RBC) [Mass/Vol] 30.7 g/dL Low 32-36 [facility] Mean platelet volume determi nationOrdered By: Peggy Sanchez on 03-03-2024 Platelet mean volume (Bld) [Entitic vol] 10.6 fL 6.2-12.[address] [facility] Platelet countOrdered By: Amos Sanchez on 03-03-2024 Platelets (Bld) [#/Vol] 415 10*3/uL 150-[address] [facility] RBC Auto (Bld) [#/Vol]Ordere d By: Peggy Sanchez on 03-03-2024 RBC (Bld) [#/Vol] 5.57 10*6/uL High 4.2-5.4 [facility] Serum beta 2 glycoprotein 1 IgA antibody detectionOrdered By: Peggy Sanchez on 03-03-2024 Beta 2 glycoprotein 1 IgA Ql (S) <9 0-[address] [facility] Comment on above: Result Units: GPI [...] glycoprotein 1 IgG Ql (S) <9 0-[address] [facility] Comment on above: Result Units: GPI [...] glycoprotein 1 IgM Ql (S) <9 0-[address] [facility] Comment on above: Result Units: GPI [...] Qn (S) < 9 GPL U/mL 0-[address] [facility] Comment on above: Negative: <15 Indete rminate: 15 - 20 Low-Med Positive: >20 - 80 High Positive: >80 Serum cardiolipin IgM antibo dy assayOrdered By: Peggy Sanchez on 03-03-2024 Anti-Cardiolipin IgM Antibody < 9 MPL U/mL 0-[address] [facility] Comment on above: Negative: <13 Indete rminate: 13 - 20 Low-Med Positive: >20 - 80 High Positive: >80Performed at: [facility] [employer] [id number] Director: Ayo Burns MD, Phone: [phone] at: [facility] [employer] [id number] Director: Xavier Salas PhD, Phone: [phone] Serum human chorionic gonado tropin detection for pregnancyOrdered By: Peggy Sanchez on 03-03-2024 HCG ( test) Ql 26 mIU/mL High <4 [facility] Comment on above: hCG levels with Gest ational AgeGestational Age hCG mIU/mL (IU/L)0.2 - 1 week 5 - 501-2 weeks 50 - 5002-3 weeks 100 - 49019-8 weeks 500 - 725548-1 weeks 1000 - 831603-2 weeks 79549 - 100,0006-8 weeks 77889 - 200,0002-3 months 27812 - 100,000 Thrombin timeOrdered By: Yeni Sanchez on 03-03-2024 Thrombin time Coag (PPP) [Time] 19.5 sec 0.0-23.[address] [facility] Thrombin time Coag (PPP) [Ti me]Ordered By: Peggy Sanchez on 03-03-2024 Thrombin Time 19.5 sec 0.0-23.[address] [facility] White blood cell (WBC) count Ordered By: Peggy Sanchez on 03-03-2024 WBC (Bld) [#/Vol] 8.0 10*3/uL 4.4-11.0 [facility] dRVVT Coag (PPP) [Time]Order ed By: Peggy Sanchez on 03-03-2024 Dilute Isaac Viper Venom (Lupus) 27.5 sec 0.0-47.[address] [facility] hCG Titer Quant., Serumon HCG QUANT. 26 mIU/mL High 1-[address] [facility] Comment on above: Result Comment: hCG levels with Gestational AgeGestational Age hCG mIU/mL (IU/L)0.2 - 1 week 5 - 501-2 weeks 50 - 5002-3 weeks 100 - 83530-4 weeks 500 - 720928-8 weeks 1000 - 791567-3 weeks 02312 - 100,0006-8 weeks 90010 - 200,0002-3 months 18621 - 100,000 Performed By: #### L 3100.8410, L700.8000, L100.0500, L4500.0100, L3410.2000 ####[facility] [id number] [place], [place], [id number] Liveron 03-02-[address] [facility] Visit Reporton 03-02-2024 [facility] Visit Report Normal [facility] HCG ( test) QlOrder ed By: Silviano Daley on 03-01-2024 Human Chorionic Gonadotropin, Quant 24 mIU/mL High <[address] [facility] Comment on above: hCG levels with Gest ational AgeGestational Age hCG mIU/mL (IU/L)0.2 - 1 week 5 - 501-2 weeks 50 - 5002-3 weeks 100 - 33484-4 weeks 500 - 928639-5 weeks 1000 - 496445-1 weeks 59504 - 100,0006-8 weeks 17520 - 200,0002-3 months 07441 - 100,000 Serum human chorionic gonado tropin detection for pregnancyOrdered By: Silviano Daley on 03-01-2024 HCG ( test) Ql 24 mIU/mL High <4 [facility] Comment on above: hCG levels with Gest ational AgeGestational Age hCG mIU/mL (IU/L)0.2 - 1 week 5 - 501-2 weeks 50 - 5002-3 weeks 100 - 34712-9 weeks 500 - 883690-7 weeks 1000 - 740145-8 weeks 43541 - 100,0006-8 weeks 29094 - 200,0002-3 months 97578 - 100,000 hCG Titer Quant., Serumon HCG QUANT. 24 mIU/mL High 1-[address] [facility] Comment on above: Result Comment: hCG levels with Gestational AgeGestational Age hCG mIU/mL (IU/L)0.2 - 1 week 5 - 501-2 weeks 50 - 5002-3 weeks 100 - 83974-7 weeks 500 - 744949-7 weeks 1000 - 907540-6 weeks 27253 - 100,0006-8 weeks 96886 - 200,0002-3 months 37989 - 100,000 Performed By: #### L 700.8000 ####[facility] [id number] [place], [address] HCG ( test) QlOrder ed By: Silviano Daley on 02-28-2024 Human Chorionic Gonadotropin, Quant 21 mIU/mL High <[address] [facility] Comment on above: hCG levels with Gest ational AgeGestational Age hCG mIU/mL (IU/L)0.2 - 1 week 5 - 501-2 weeks 50 - 5002-3 weeks 100 - 27690-8 weeks 500 - 649204-3 weeks 1000 - 304339-8 weeks 06541 - 100,0006-8 weeks 12476 - 200,0002-3 months 43547 - 100,000 hCG Titer Quant., Serumon HCG QUANT. 21 mIU/mL High 1-[address] [facility] Comment on above: Result Comment: hCG levels with Gestational AgeGestational Age hCG mIU/mL (IU/L)0.2 - 1 week 5 - 501-2 weeks 50 - 5002-3 weeks 100 - 43870-1 weeks 500 - 235652-4 weeks 1000 - 828320-9 weeks 63660 - 100,0006-8 weeks 64429 - 200,0002-3 months 85072 - 100,000 Performed By: #### L 700.8000 ####[facility] [address] [place], [address] ED MED ADMINISTRATION DETAIL on 02-22-2024 ED MED ADMINISTRATION DETAIL Residential [employer] Medication Administration Record [address] [place] [address] [id number] 02/20/2024 Patient: ANNE MARIE PETERSON Sex: Female [...] IV site checked: no pain, redness, Jana James, R.N. or swelling. IV flushed thoroughly pre-medication [...] Chasity Lieberman R.N. Scanned 1 of 2 [employer] Medication Ordered Medication Administration Date/Time IV NS [...] Ángela Doyle R.N. 2 of 2 [facility] ED NURSES CLINICAL NOTEon ED NURSES CLINICAL NOTE Nurse Narrative Nurse Clinical Narrative [address] [address] [id number] 02/20/2024 Patient: ANNE MARIE PETERSON Sex: Female [...] ADDITIONAL SURGERIES: Gastric Bypass -- 17:36 02/20/24 DEANN Wood R.N. Hernia Repair -- 17:37 02/20/24 [...] and precautions. Verbalizes understanding. -- 18:36 02/20/24 DEANN Ramirez R.N. 18:50 02/20/24. HR: 100 bpm. O2 saturation: 95%. -- 01:48 02/21/24 DEANN Doyle R.N. 19:00 02/20/24. HR: 100 bpm. O2 saturation: 96%. -- 01:48 02/21/24 EST Ángela Doyle R.N. 19:05 02/20/24. HR: 93 bpm. O2 saturation: 97%. -- 01:48 01/24 (more content not included)... [facility] ED ORDER SHEET (CPOE ONLY)on 02-22-2024 ED ORDER SHEET (CPOE ONLY) Order Sheet Order Sheet [address] [place] [address] [id number] 02/20/2024 Patient: ANNE MARIE PETERSON Sex: Female : 1995 Age: 28y MEASUREMENTS: Wt: 117.9 kg, Ht/Jorje: 66.0 in, BMI: 41.96 ALLERGIES: NSAIDS (Non-Steroidal Anti-Inflammatory Drug) MEDICATION/IV/DRIP/FLUI D ORDERS Order Description Priority Entered Acknowledged Completed IV NS 0.9 %1000 mL at 999 17:54 02/20/2024 18:35 18:36 mL/hr (NOW x1) Anup Larios, 02/20/2024 02/20/2024 OmairaOJana Retana R.N. R.N. Acetaminophen (Tylenol) 19:38 02/20/2024 19:40 PO650 mg (NOW x1) Jaswinder Sena, 02/20/2024 Mian Doyle R.N. IV NS 0.9 %1000 mL at 999 20:11 02/20/2024 20:12 mL/hr (NOW x1) Jaswinder Sena 02/20/2024 Mian Doyle R.N. Reason for ordering [...] TEST Stat Hema Elena Crystal Brenner, D.O. EMirthaMMirthaTMirtha-P. RZuleyka Flu Swab (Influenzae Stat 19:55 02/20/2024 20:06 02/20/2024 20:13 02/20/2024 AAg) Stat Hema Elena Crystal Brenner, D.O. E.M.T.-PMirtha Gaspar DIAGNOSTIC STUDY ORDERS Order Description Priority Entered [...] 02/20/2024 18:35 02/20/2024 Jana Keane Lemasters, D.O. R.NMirtha RMirthaNMirtha [Electronically signed by Anup Larios D.O. (02/20/2024 18:54 EST)] [Electronically signed by Jaswinder Sena D.O. (02/21/2024 00:45 EST)] 3 of 3 [facility] ED PHYSICIAN CLINICAL REPORT on 02-22-2024 ED PHYSICIAN CLINICAL REPORT Narrative Physician Clinical Narrative [address] [address] [id number] 02/20/2024 Patient: ANNE MARIE PETERSON Sex: Female [...] 1.50 - 7.10 Final EST 02/20/2024 19:58 [place] # 0.34 x10/UL 0.20 - 1.00 Final [...] Comments MARIELENA (more content not included)... [facility] ED SUPER BILLon 02-22-2024 ED SUPER BILL [facility] [address] [place] [address] [id number] 02/20/2024 Patient: ANNE MARIE PETERSON Sex: Female : 1995 Age: 28y Item Facility Professional Category Description Code Code Quantity Fee Total Drugs Normal Saline 292682 2 $0.00 $0.00 1000cc (315866) Nurse/E/M EMERGENCY 478601 1 $0.00 $0.00 DEPARTMENT VISIT HIGH/URGENT SEVERITY (86624-13) Nurse/IV/IM/Infusions Hydration 798423 3 $0.00 $0.00 additional hour (22372) Nurse/IV/IM/Infusions Hydration initial 722222 1 $0.00 $0.00 (93359) Grand Total $0.00 Providers Mian Contreras D.O. 1 of 2 Superbill Chief Complaint DIARRHEA. Principal Diagnosis Acute generalized abdominal pain. Acute abdominal pain of unknown cause. ICD-10 Codes R10.84: Generalized abdominal pain R10.9: Unspecified abdominal pain 2 of 2 [facility] ED VISIT SUMMARYon ED VISIT SUMMARY Visit Overview Visit Overview [address] [place] [address] [id number] 02/20/2024 Patient: ANNE MARIE PETERSON Sex: Female [...] bypass, unable to keep herself hydrated), (Zakia [place]), and (vomiting, diarrhea) ALLERGIES NSAIDS (Non-Steroidal Anti-Inflammatory [...] GENERALIZED ABDOMINAL PAIN 3 of 3 [facility] ED VITALS FLOW SHEETon 02-21 ED VITALS FLOW SHEET Vitals Vital Sign Flow Sheet [facility] [address] [place] [address] [id number] 02/20/2024 Patient: ANNE MARIE PETERSON Sex: Female [...] 99.2 F 4 3 of 3 [facility] CBC + DIFFon 02-20-2024 Baso # 0.00 x10EE3/UL Normal 0.00 - 0.10 [facility] Comment on above: Performed By: #### 2 19299 #### [facility],[address] [place], [place] [phone] Basophils/100 WBC (Bld) 0.1 % Normal 0.0 - 2.0 [facility] Comment on above: Performed By: #### 2 62591 #### [facility],[address] [place] [address] 91358 CBC + DIFF Normal [facility] Comment on above: Result Comment: CBC- COMPLETE BLOOD COUNT Performed By: #### 2 68519 #### [facility],[address] [place] [address] 51384 EO # 0.02 x10EE3/UL Normal 0.00 - 0.50 [facility] Comment on above: Performed By: #### 2 28348 #### [facility],[address] [place] [address] 73204 Eosinophils/100 WBC (Bld) 0.3 % Normal 0.0 - 7.0 [facility] Comment on above: Performed By: #### 2 54707 #### [facility],[address] [place], [place] [phone] Erythrocyte distribution width (RBC) [Ratio] 17.2 % High 12.0 - 15.6 [facility] Comment on above: Performed By: #### 2 62399 #### [facility],[address] [place] [address] 50045 Hematocrit (Bld) [Volume fraction] 41.1 % Normal 34.0 - 46.0 [facility] Comment on above: Performed By: #### 2 83848 #### [facility],[address] [place] [address] 74500 Hemoglobin (Bld) [Mass/Vol] 13.5 g/dL Normal 12.0 - 16.0 [facility] Comment on above: Performed By: #### 2 87422 #### [facility],[address] [place] [address] 73094 Lymph # 0.50 x10EE3/UL Low 0.80 - 2.80 [facility] Comment on above: Performed By: #### 2 48724 #### [facility],[address] [place] [address] 36297 Lymphocytes/100 WBC (Bld) 6.3 % Low 20.0 - 45.0 [facility] Comment on above: Performed By: #### 2 34154 #### [facility],[address] [place] [address] MANUAL DIFF N/A [facility] Comment on above: Performed By: #### 2 20707 #### [facility],[address] [place] [address] MCH (RBC) [Entitic mass] 22 pg Low 27 - 33 [facility] Comment on above: Performed By: #### 2 85350 #### [facility],[address] [place] [address] MCHC 33 X10 3 Normal 32 - 36 [facility] Comment on above: Performed By: #### 2 30234 #### [facility],[address] [place] [address] MCV (RBC) [Entitic vol] 66 fL Low 80 - 99 [facility] Comment on above: Performed By: #### 2 10376 #### [facility],[address] [place] [address] [place] # 0.34 x10EE3/UL Normal 0.20 - 1.00 [facility] Comment on above: Performed By: #### 2 49641 #### [facility],[address] [place] [address] MONOS % 4.3 % Normal 0.0 - 10.0 [facility] Comment on above: Performed By: #### 2 60202 #### [facility],[address] [place] [address] Morphology Girish (Bld) [Interp] SEE BELOW [facility] Comment on above: Performed By: #### 2 06792 #### [facility],[address] [place] [address] Neut # 7.07 x10EE3/UL Normal 1.50 - 7.10 [facility] Comment on above: Performed By: #### 2 77254 #### [facility],[address] [place] [address] 61083 Neutrophils/100 WBC (Bld) 89.0 % High 46.0 - 76.0 [facility] Comment on above: Performed By: #### 2 71066 #### [facility],[address] [place] [address] 37398 PLATELET 404 x10EE3/UL Normal 150 - 450 [facility] Comment on above: Performed By: #### 2 96858 #### [facility],[address] [place] [address] 90257 Platelet mean volume (Bld) [Entitic vol] 9.6 fL Normal 6.6 - 10.5 [facility] Comment on above: Result Comment: AUTO MATED DIFFERENTIAL Performed By: #### 2 54168 #### [facility],[address] [place] [address] 55146 PLT EST NORMAL [facility] Comment on above: Performed By: #### 2 31395 #### [facility],[address] [place] [address] 89357 RBC 6.22 x 10EE6/UL High 4.10 - 5.30 [facility] Comment on above: Performed By: #### 2 86651 #### [facility],[address] [place] [address] 55345 WBC 7.9 x 10EE3/UL Normal 4.5 - 10.8 [facility] Comment on above: Performed By: #### 2 94056 #### [facility],[address] [place] [address] 23676 Other MANY LARGE PLATELETS Normal [facility] Comment on above: Performed By: #### 2 70689 #### [facility],[address] [place] [address] 05634 CMP with eGFRon 02-20-2024 AGE 28 years Normal [facility] Comment on above: Performed By: #### 2 30568 #### [facility],[address] [place] [address] 69389 Albumin [Mass/Vol] 3.7 g/dL Normal 3.4 - 5.0 [facility] Comment on above: Performed By: #### 2 94307 #### [facility],[address] [place] [address] 80732 Albumin/Globulin [Mass ratio] 0.9 {ratio} Normal 0.9 - 1.6 [facility] Comment on above: Performed By: #### 2 00985 #### [facility],[address] [place] [address] 25665 ALK PHOS 81 U/L Normal 46 - 116 [facility] Comment on above: Performed By: #### 2 82773 #### [facility],[address] [place] [address] 19726 ALT [Catalytic activity/Vol] 31 U/L Normal 16 - 63 [facility] Comment on above: Performed By: #### 2 08494 #### [facility],[address] [place] [address] 60075 Anion gap [Moles/Vol] 17 mmol/L Normal 10 - 20 [facility] Comment on above: Performed By: #### 2 09839 #### [facility],[address] [place] [address] 04180 AST [Catalytic activity/Vol] 23 U/L Normal 13 - 39 [facility] Comment on above: Performed By: #### 2 54524 #### [facility],[address] [place] [address] 03922 B/C RATIO 18 ratio Normal 0 - 30 [facility] Comment on above: Performed By: #### 2 33251 #### [facility],[address] [place] [address] 00330 Bilirubin [Mass/Vol] 0.5 mg/dL Normal 0.2 - 1.0 [facility] Comment on above: Performed By: #### 2 88628 #### [facility],[address] [place] [address] 18667 Calcium [Mass/Vol] 9.1 mg/dL Normal 8.5 - 10.1 [facility] Comment on above: Performed By: #### 2 86950 #### [facility],[address] [place] [address] 72567 Chloride [Moles/Vol] 102 mmol/L Normal 98 - 107 [facility] Comment on above: Performed By: #### 2 92418 #### [facility],[address] [place] [address] 01504 CMP with eGFR Normal [facility] Comment on above: Result Comment: COMP REHENSIVE METABOLIC PANEL Performed By: #### 2 84978 #### [facility],[address] [place] [address] 76259 CO2 [Moles/Vol] 23.2 mmol/L Normal 21.0 - 32.0 [facility] Comment on above: Performed By: #### 2 87605 #### [facility],[address] [place] [address] 52062 Creatinine [Mass/Vol] 0.61 mg/dL Normal 0.55 - 1.02 [facility] Comment on above: Performed By: #### 2 99888 #### [facility],[address] [place] [address] 35147 GFR/1.73 sq M.predicted among non-blacks MDRD (S/P/Bld) [Vol rate/Area] mL/min/{1.73_m2} Normal 60 - 999 [facility] Comment on above: Performed By: #### 2 32002 #### [facility],[address] [place] [address] 19054 Result Comment: ACCO RDING TO THE NATIONAL KIDNEY DISEASE EDUCATION PROGRAM(NKDE), A NORMAL eGFR IS A VALUE GREATER THAN OR EQUAL TO 60 ML/MIN/1.73 SQ METERS. CHRONIC KIDNEY DISEASE: <60mL/MIN/1.73 SQ METERS KIDNEY FAILURE: <15mL/MIN/1.73 SQ METERS THIS TEST SHOULD ONLY BE USED FOR PATIENTS 18 YEARS OF AGE AND OLDER. Globulin (S) [Mass/Vol] 4.3 g/dL High 1.5 - 3.8 [facility] Comment on above: Performed By: #### 2 78857 #### [facility],[address] [place] [address] 91646 Glucose [Mass/Vol] 98 mg/dL Normal 74 - 106 [facility] Comment on above: Performed By: #### 2 80698 #### [facility],[address] [place] [address] 59716 Potassium [Moles/Vol] 3.7 mmol/L Normal 3.5 - 5.1 [facility] Comment on above: Performed By: #### 2 11619 #### [address] [address] Protein [Mass/Vol] 8.0 g/dL Normal 6.4 - 8.2 [facility] Comment on above: Performed By: #### 2 37811 #### [facility],[address] [place] [address] 28165 Sodium [Moles/Vol] 138 mmol/L Normal 136 - 145 [facility] Comment on above: Performed By: #### 2 48065 #### [facility],[address] [place] [address] 82777 Urea nitrogen [Mass/Vol] 11 mg/dL Normal 7 - 18 [facility] Comment on above: Performed By: #### 2 37325 #### [address] [address] CORONAVIRUS (SARS) ANTIGEN T ESTon 02-20-2024 EXTERNAL QC DONE? YES [facility] Comment on above: Performed By: #### 2 40527 #### [address] [address] INTERNAL CONTROL PASS Normal [facility] Comment on above: Performed By: #### 2 64475 #### [facility],[address] [place], [place] [address] SARS ANTIGEN Negative Normal NORMAL: NEGATIVE [facility] Comment on above: Performed By: #### 2 08528 #### [facility],[address] [place], [place] [address] SEND TO ? NO [facility] Comment on above: Result Comment: SARS -CoV-2 THIS TEST IS BEING USED UNDER THE FDA EUA PROCEDURE. THIS ASSAY HAS BEEN VALIDATED AT [facility] FOR USE WITH NASAL AND NASOPHARYNGEAL [...] PUBLIC HEALTH AUTHORITIES. Performed By: #### 2 43665 #### [facility],[address] [place] [address] ABDOMEN/PELVIS Won 2023 CT ABDOMEN/PELVIS W [address] [address] Patient: ANNE MARIE PETERSON Phone#: : 1995 Age: 28 Gender: F Pt. Type: ER Account: [id number] Location: [facility] Ordering: JASWINDER SENA Exam Date: 02/20/2024/22:05 Family Phys: XENIA LANE Charge Code: 460996 Physician: Ashe Order #: [id number] Dose#: 40.4 PROCEDURE: CT ABDOMEN/PELVIS WITH CONTRAST COMPARISON: [facility], CT, ABDOMEN/PELVIS W CON, 05/18/2023, 7:05. [facility], CT, CHEST PE W CON, 12/19/2022, 10:56. [facility], CT, ABDOMEN/PELVIS W CON, 10/25/2023, 16:50. [...] 28 Gender: F Pt. Type: ER Account: [id number] Location: 052 Ordering: JASWINDER SENA Exam Date: 02/20/2024/22:05 Family Phys: XENIA LANE Charge Code: [id number] Physician: Ashe Order #: [id number] Dose#: 40.4 OTHER: Negative. CONCLUSION: 1. Subtle hypoattenuating focus in the left hepatic lobe of questionable etiology. Further evaluation by ultrasound or MRI without and with contrast is recommended. Dictated by: Astrid Johnson MD on 02/21/2024 at 9:08 Approved by: Astrid Johnson MD on 02/21/2024 at 9:16 [facility] INFLUENZA VIRUS RAPID A/Bon 02-20-2024 INFLUENZA VIRUS [...] TO THREE DAYS. RESULT CRITICAL? NO [facility] Comment on above: Performed By: #### 2 05452 #### [facility],[address] [place] [address] LIPASEon 02-20-2024 Lipase [Catalytic activity/Vol] 19.0 U/L Normal 15.0 - 78.0 [facility] Comment on above: Result Comment: *PLE ASE NOTE THAT RANGES FOR LIPASE HAVE CHANGED OF 02/19/23 DUE TO AN ASSAY UPDATE BY THE POWER AND RECOVERY SUPERVISOR.THE NEW ASSAY RANGE IS 6-250 U/L, WITH A REFERENCE RANGE OF 16-77 U/L. Performed By: #### 2 08880 #### [facility],[address] [place] [address] 12842 URINALYSISon 02-20-2024 Amorphous NONE [facility] Comment on above: Performed By: #### 2 74069 #### [facility],[address] [place] [address] 30368 Bacteria 1+ Normal [facility] Comment on above: Performed By: #### 2 32506 #### [facility],[address] [place] [address] 54725 Bilirubin Ql (U) 1 Abnormal NORMAL: NEGATIVE [facility] Comment on above: Performed By: #### 2 24362 #### [facility],[address] [place] [address] 22233 Casts NONE [facility] Comment on above: Performed By: #### 2 70984 #### [facility],[address] [place] [address] 00903 Clarity (U) clear Normal NORMAL: CLEAR [facility] Comment on above: Performed By: #### 2 17266 #### [facility],[address] [place] [address] 52816 Color (U) robert Normal NORMAL: YELLOW [facility] Comment on above: Performed By: #### 2 18303 #### [facility],[address] [place] [address] 35110 Crystals LM Nom (Urine sed) NONE [facility] Comment on above: Performed By: #### 2 89818 #### [facility],[address] [place] [address] 53068 Epi Cells MODERATE Normal [facility] Comment on above: Performed By: #### 2 32114 #### [facility],[address] [place] [address] 03648 Glucose Ql (U) NORM Normal NORMAL: NORMAL [facility] Comment on above: Performed By: #### 2 80610 #### [facility],[address] [place] [address] 38639 Hemoglobin Ql (U) Negative Normal NORMAL: NEGATIVE [facility] Comment on above: Performed By: #### 2 71070 #### [facility],[address] [place] [address] 24909 Ketone 150 Abnormal NORMAL: NEGATIVE [facility] Comment on above: Performed By: #### 2 93902 #### [facility],[address] [place] [address] 23249 Leukocytes 25 Abnormal NORMAL: NEGATIVE [facility] Comment on above: Performed By: #### 2 50697 #### [facility],[address] [place] [address] 63491 Mucous 4+ Normal [facility] Comment on above: Performed By: #### 2 22178 #### [facility],[address] [place] [address] 57574 Nitrite Ql (U) Negative Normal NORMAL: NEGATIVE [facility] Comment on above: Performed By: #### 2 94861 #### [facility],[address] [place] [address] 29869 pH (U) 6 [pH] Normal NORMAL: 5.0-8.0 [facility] Comment on above: Performed By: #### 2 82173 #### [facility],[address] [place] [address] 71716 Protein Ql (U) 30 Abnormal NORMAL: NEGATIVE [facility] Comment on above: Performed By: #### 2 19504 #### [facility],[address] [place] [address] 52095 Rbc NONE Normal 0-3/hpf [facility] Comment on above: Performed By: #### 2 67907 #### [facility],[address] [place] [address] 48193 Sp Marks 1.025 Normal NORMAL: 1.010-1.030 [facility] Comment on above: Performed By: #### 2 01693 #### [facility],[address] [place] [address] 00021 Specimen Type R Normal [facility] Comment on above: Performed By: #### 2 52628 #### [facility],[address] [place] [address] 09611 Urinalysis dipstick W Reflex Microscopic panel (U) SEE BELOW [facility] Comment on above: Result Comment: MICR OSCOPIC Performed By: #### 2 [id number] #### [facility],[address] [place] [address]9032 Urobilinog NORM Normal NORMAL: NORMAL [facility] Comment on above: Performed By: #### 2 [id number] #### [facility],[address] [place] [address] 72722 Wbc 1-5 Normal 0-5/hpf [facility] Comment on above: Performed By: #### 2 [id number] #### [facility],[address] [place] [address]643 Yeast NONE Normal [facility] Comment on above: Performed By: #### 2 [id number] #### [facility],[address] [place] [address] 98021 25-hydroxyvitamin D3 [Mass/V ol]on 02-11-2024 Interpretation and review of laboratory results Abnormal [facility] Target concentration : 30 - 40 ng/mL; toxicity seen at concentrations >100 ng/mL Therapy is based on measurement of Total 25-OHD with the following classification levels: Less than 20 ng/mL: Indicative of Vit D deficiency 20-30 ng/mL: Suggests Vit D insufficiency Optimal: Greater than or equal to 30 ng/mL Test performed by [employer] Competitive Immunoassay, measuring Total Vitamin D, not individual fractions. [facility] CBC (HEMOGRAM)on 02-11-2024 Erythrocyte distribution width (RBC) [Ratio] 15.3 % High 11.5-15.0 [facility] Comment on above: Order Comment: These orders are set for an approximate date - they can be drawn up to 3 months prior to the Expected Date on this Req.Please send results to: [address] [address] - [phone] if not done at a [facility], please send to:[place] [address]Phone: Mpjidzp Name: Anne Marie Peterson 1995Order Created by : Peggy Friedman MA Performed By: #### L AB68, [id number], LAB67, LAB17, LAB18, LAB69 #### Mitigation Supervisor: HENNY HEATON ([phone]) [address] Hematocrit (Bld) [Volume fraction] 37.6 % Normal 35.0-47.0 [facility] Comment on above: Order Comment: These orders are set for an approximate date - they can be drawn up to 3 months prior to the Expected Date on this Req.Please send results to: [address] [address] - [phone] if not done at a [facility], please send to:[place] [address]Phone: Stfyvve Name: Anne Marie Peterson 1995Order Created by : Peggy Friedman MA Performed By: #### L AB68, [id number], LAB67, LAB17, LAB18, LAB69 #### Mitigation Supervisor: HENNY HEATON ([phone]) [facility] ([facility]) [address] [place] [address] Hemoglobin (Bld) [Mass/Vol] 11.2 g/dL Low 11.7-16.0 [facility] Comment on above: Order Comment: These orders are set for an approximate date - they can be drawn up to 3 months prior to the Expected Date on this Req.Please send results to: [address] [address] - [phone] if not done at a [facility], please send to:[address] [address]Aslfe: [phone] Jvqgudl Name: Anne Marie Peterson 1995Order Created by : Peggy Friedman MA Performed By: #### L AB68, [id number], LAB67, LAB17, LAB18, LAB69 #### Mitigation Supervisor: HENNY HEATON ([phone]) [facility] ([facility]) [address] [place] [address] MCH (RBC) [Entitic mass] 20.7 pg Low 26.0-34.0 [facility] Comment on above: Order Comment: These orders are set for an approximate date - they can be drawn up to 3 months prior to the Expected Date on this Req.Please send results to: [address] [address] - [phone] if not done at a [facility], please send to:[address] [address]Brwya: [phone] Xriitam Name: Anne Marie Peterson 1995Order Created by : Peggy Friedman MA Performed By: #### L AB68, [id number], LAB67, LAB17, LAB18, LAB69 #### Mitigation Supervisor: HENNY HEATON ([phone]) [facility] ([facility]) [address] [place] [address] MCHC 29.8 % Low 30.5-36.0 [facility] Comment on above: Order Comment: These orders are set for an approximate date - they can be drawn up to 3 months prior to the Expected Date on this Req.Please send results to: [address] [address] - [phone] if not done at a [facility], please send to:[place] [address]Phone: Htlksph Name: Anne Marie Peterson 1995Order Created by : Peggy Friedman MA Performed By: #### L AB68, [id number], LAB67, LAB17, LAB18, LAB69 #### Mitigation Supervisor: HENNY HEATON ([phone]) [facility] ([facility]) [address] [place] [address] MCV (RBC) [Entitic vol] 69.5 fL Low 77.0-99.0 [facility] Comment on above: Order Comment: These orders are set for an approximate date - they can be drawn up to 3 months prior to the Expected Date on this Req.Please send results to: [address] [address] - [phone] if not done at a [facility], please send to:[place] [address]Phone: Kdggbvn Name: Anne Marie Peterson 1995Order Created by : Peggy Friedman MA Performed By: #### L AB68, [id number], LAB67, LAB17, LAB18, LAB69 #### Mitigation Supervisor: HENNY HEATON ([phone]) [facility] ([facility]) [address] [place] [address] Platelet mean volume (Bld) [Entitic vol] 10.8 fL Normal 9.0-12.7 [facility] Comment on above: Order Comment: These orders are set for an approximate date - they can be drawn up to 3 months prior to the Expected Date on this Req.Please send results to: [address] [phone] - [phone] if not done at a [facility], please send to:[facility] - [address] [place] [address], [address]Hlybj: [phone] Uxpstid Name: Anne Marie Tran 1995Order Created by : Peggy Friedman MA Performed By: #### L AB68, [id number], LAB67, LAB17, LAB18, LAB69 #### Mitigation Supervisor: HENNY HEATON ([phone]) [facility] ([facility]) [address] [place] [address] Platelets (Bld) [#/Vol] 377 10*3/uL Normal 140-440 [facility] Comment on above: Order Comment: These orders are set for an approximate date - they can be drawn up to 3 months prior to the Expected Date on this Req.Please send results to: [address] [address] - [phone] if not done at a [facility], please send to:[address], [address]Dpjiv: [phone] Agojykc Name: Anne Marie Peterson - 1995Order Created by : Peggy Friedman MA Performed By: #### L AB68, [id number], LAB67, LAB17, LAB18, LAB69 #### Mitigation Supervisor: HENNY HEATON ([phone]) [facility] [address] [place] [address] RBC (Bld) [#/Vol] 5.41 10*6/uL High 3.80-5.20 [facility] Comment on above: Order Comment: These orders are set for an approximate date - they can be drawn up to 3 months prior to the Expected Date on this Req.Please send results to: [address] [address] - [phone] if not done at a [facility], please send to:[place] [address]Phone: Gdudtxy Name: Anne Marie Peterson - 1995Order Created by : Peggy Friedman MA Performed By: #### L AB68, [id number], LAB67, LAB17, LAB18, LAB69 #### Mitigation Supervisor: HENNY HEATON ([phone]) [facility] ([facility]) [address] [place] [address] WBC (Bld) [#/Vol] 5.8 10*3/uL Normal 3.6-10.7 [facility] Comment on above: Order Comment: These orders are set for an approximate date - they can be drawn up to 3 months prior to the Expected Date on this Req.Please send results to: [address] [address] - [phone] if not done at a [facility], please send to:[place] [address]Phone: Csbvxkg Name: Anne Marie Peterson - 1995Order Created by : Peggy Friedman MA Performed By: #### L AB68, [id number], LAB67, LAB17, LAB18, LAB69 #### Mitigation Supervisor: HENNY HEATON ([phone]) [facility] ([facility]) [address] [place] [address] CBC panel Auto (Bld)Ordered By: Flores Toscano on 02-11-2024 Erythrocyte distribution width (RBC) [Ratio] 15.3 % High 11.5 - 15.0 % [facility] Hematocrit (Bld) [Volume fraction] 37.6 % 35.0 - 47.0 % [facility] Hemoglobin (Bld) [Mass/Vol] 11.2 g/dL Low 11.7 - 16.0 g/dL [facility] Interpretation and review of laboratory results Abnormal [facility] MCH (RBC) [Entitic mass] 20.7 pg Low 26.0 - 34.0 pg [facility] MCHC (RBC) [Mass/Vol] 29.8 % Low 30.5 - 36.0 % [facility] MCV (RBC) [Entitic vol] 69.5 fL Low 77.0 - 99.0 fL [facility] Platelet mean volume (Bld) [Entitic vol] 10.8 fL 9.0 - 12.7 fL [facility] Platelets (Bld) [#/Vol] 377 10*3/uL 140 - 440 10*3/uL [facility] RBC (Bld) [#/Vol] 5.41 10*6/uL High 3.80 - 5.2 0 10*6/uL [facility] WBC (Bld) [#/Vol] 5.8 10*3/uL 3.6 - 10.7 10*3/uL [facility] COMPREHENSIVE METABOLIC PANE Chavez 02-11-2024 Albumin [Mass/Vol] 3.6 g/dL Normal 3.5-5.0 [facility] Comment on above: Order Comment: These orders are set for an approximate date - they can be drawn up to 3 months prior to the Expected Date on this Req. Please send results to: [facility] [address] [place] [address] - [phone] And if not done at a [facility], please send to: [facility] [place] - [address] [place] [address], [address] [address] Patient Name: Anne Marie Peterson - 1995 Order Created by : Peggy Friedman MA Performed By: #### L AB68, [id number], LAB67, LAB17, LAB18, LAB69 #### Mitigation Supervisor: HENNY HEATON ([phone]) [facility] ([facility]) [address] [place] [address] ALP [Catalytic activity/Vol] 73 U/L Normal 40-150 [facility] Comment on above: Order Comment: These orders are set for an approximate date - they can be drawn up to 3 months prior to the Expected Date on this Req. Please send results to: [facility] [address] [place] [phone] - [phone] And if not done at a [facility], please send to: [address], [address] Patient Name: Anne Marie Tran 1995 Order Created by : Peggy Friedman MA Performed By: #### L AB68, IWC070, LAB67, LAB17, LAB18, LAB69 #### Mitigation Supervisor: HENNY HEATON ([phone]) [facility] [address] [place] [address] ALT [Catalytic activity/Vol] 18 U/L Normal <30 [facility] Comment on above: Order Comment: These orders are set for an approximate date - they can be drawn up to 3 months prior to the Expected Date on this Req. Please send results to: [facility] [address] [place] [address] - [phone] And if not done at a [facility], please send to: [address] [address] Patient Name: Anne Marie Peterson - 1995 Order Created by : Peggy Friedman MA Performed By: #### L AB68, [id number], LAB67, LAB17, LAB18, LAB69 #### Mitigation Supervisor: HENNY HEATON ([id number]) [facility] [address] [place] [address] Anion gap [Moles/Vol] 6 mmol/L Normal 3-13 [facility] Comment on above: Order Comment: These orders are set for an approximate date - they can be drawn up to 3 months prior to the Expected Date on this Req. Please send results to: [address] [place] [phone] - [phone] And if not done at a [facility], please send to: [address], [address] Patient Name: Anne Marie Peterson 1995 Order Created by : Peggy Friedman MA Performed By: #### L AB68, JUS383, LAB67, LAB17, LAB18, LAB69 #### Mitigation Supervisor: HENNY HEATON ([phone]) [facility] ([facility]) [address] [place] [address] AST [Catalytic activity/Vol] 25 U/L Normal <34 [facility] Comment on above: Order Comment: These orders are set for an approximate date - they can be drawn up to 3 months prior to the Expected Date on this Req. Please send results to: [address] [place] [address] - [phone] And if not done at a [facility], please send to: [address] [address] Patient Name: Anne Marie Peterson 1995 Order Created by : Peggy Friedman MA Performed By: #### L AB68, [id number], LAB67, LAB17, LAB18, LAB69 #### Mitigation Supervisor: HENNY HEATON ([phone]) [facility] ([facility]) [address] [place] [address] Bilirubin [Mass/Vol] 0.5 mg/dL Normal <1.2 [facility] Comment on above: Order Comment: These orders are set for an approximate date - they can be drawn up to 3 months prior to the Expected Date on this Req. Please send results to: [address] [place] [address] - [phone] And if not done at a [facility], please send to: [address], [address] Patient Name: Anne Marie Tran 1995 Order Created by : Peggy Friedman MA Performed By: #### L AB68, ULC784, LAB67, LAB17, LAB18, LAB69 #### Mitigation Supervisor: HENYN HEATON ([phone]) [facility]) [address] [place] [address] Calcium [Mass/Vol] 9.0 mg/dL Normal 8.4-10.2 [facility] Comment on above: Order Comment: These orders are set for an approximate date - they can be drawn up to 3 months prior to the Expected Date on this Req. Please send results to: [address] [place] [address] - [phone] And if not done at a [facility], please send to: [place] [address] Patient Name: Anne Marie Peterson - 1995 Order Created by : Peggy Friedman MA Performed By: #### L AB68, [id number], LAB67, LAB17, LAB18, LAB69 #### Mitigation Supervisor: HENNY HEATON ([phone]) [address] Chloride [Moles/Vol] 105 mmol/L Normal 98-107 [facility] Comment on above: Order Comment: These orders are set for an approximate date - they can be drawn up to 3 months prior to the Expected Date on this Req. Please send results to: [address] [place] [address] - [phone] And if not done at a [facility], please send to: [address] [address] Patient Name: Anne Marie Peterson - 1995 Order Created by : Peggy Friedman MA Performed By: #### L AB68, URE132, LAB67, LAB17, LAB18, LAB69 #### Mitigation Supervisor: HENNY HEATON ([phone]) [facility]) [address] [place] [address] CO2 [Moles/Vol] 29 mmol/L Normal 22-29 [facility] Comment on above: Order Comment: These orders are set for an approximate date - they can be drawn up to 3 months prior to the Expected Date on this Req. Please send results to: [address] [place] [address] - [phone] And if not done at a [facility], please send to: [place] [address] Patient Name: Anne Marie Tran 1995 Order Created by : Peggy Friedman MA Performed By: #### L AB68, [id number], LAB67, LAB17, LAB18, LAB69 #### Mitigation Supervisor: HENNY HEATON ([phone]) [facility]) [address] [place] [address] Creatinine [Mass/Vol] 0.66 mg/dL Normal 0.57-1.11 [facility] Comment on above: Order Comment: These orders are set for an approximate date - they can be drawn up to 3 months prior to the Expected Date on this Req. Please send results to: [address] [place] [address] - [phone] And if not done at a [facility], please send to: [place] [address] Patient Name: Anne Marie Peterson 1995 Order Created by : Peggy Friedman MA Performed By: #### L AB68, [id number], LAB67, LAB17, LAB18, LAB69 #### Mitigation Supervisor: HENNY HEATON ([phone]) [facility] ([facility]) [address] [place] [address] GLOMERULAR FILTRATION RATE ML/MIN/1.73 SQ M.PREDICTED >90.0 Normal >60.0 [facility] Comment on above: Order Comment: These orders are set for an approximate date - they can be drawn up to 3 months prior to the Expected Date on this Req. Please send results to: [facility] [address] [place] [address] - [phone] And if not done at a [facility], please send to: [address], [address] Patient Name: Anne Marie Peterson - 1995 Order Created by : Peggy Friedman MA Result Comment: Calc ulation based on the Chronic Kidney Disease Epidemiology Collaboration (CKD-EPI) equation refit without adjustment for race Performed By: #### L AB68, CSD461, LAB67, LAB17, LAB18, LAB69 #### Mitigation Supervisor: HENNY HEATON ([id number]) [facility] ([facility]) [address] [place] [address] Glucose [Mass/Vol] 81 mg/dL Normal 74-100 [facility] Comment on above: Order Comment: These orders are set for an approximate date - they can be drawn up to 3 months prior to the Expected Date on this Req. Please send results to: [facility] [address] [place] [address] - [phone] And if not done at a [facility], please send to: [address], [address] Patient Name: Anne Marie Peterson - 1995 Order Created by : Peggy Friedman MA Performed By: #### L AB68, [id number], LAB67, LAB17, LAB18, LAB69 #### Mitigation Supervisor: HENNY HEATON ([phone]) [facility] [address] [place] [address] [place] Potassium [Moles/Vol] 3.8 mmol/L Normal 3.5-5.1 [facility] Comment on above: Order Comment: These orders are set for an approximate date - they can be drawn up to 3 months prior to the Expected Date on this Req. Please send results to: [facility] [address] [place] [phone] - [phone] And if not done at a [facility], please send to: [address], [address] Patient Name: Anne Marie Peterson - 1995 Order Created by : Peggy Friedman MA Result Comment: [facility] potassium values may be up to 0.5 mmol/L lower than serum values. Performed By: #### L AB68, PUU090, LAB67, LAB17, LAB18, LAB69 #### Mitigation Supervisor: HENNY HEATON ([phone]) [address] Protein [Mass/Vol] 6.9 g/dL Normal 6.4-8.3 [facility] Comment on above: Order Comment: These orders are set for an approximate date - they can be drawn up to 3 months prior to the Expected Date on this Req. Please send results to: [facility] [address] [place] [address] - [phone] And if not done at a [facility], please send to: [address], [address] Patient Name: Anne Marie Peterson - 1995 Order Created by : Peggy Friedman MA Performed By: #### L AB68, [id number], LAB67, LAB17, LAB18, LAB69 #### Mitigation Supervisor: HENNY HEATON ([phone]) [facility]) [address] [place] [address] Sodium [Moles/Vol] 140 mmol/L Normal 136-145 [facility] Comment on above: Order Comment: These orders are set for an approximate date - they can be drawn up to 3 months prior to the Expected Date on this Req. Please send results to: [address] [place] [phone] - [phone] And if not done at a [facility], please send to: [address], [address] Patient Name: Anne Marie Peterson - 1995 Order Created by : Peggy Friedman MA Performed By: #### L AB68, [id number], LAB67, LAB17, LAB18, LAB69 #### Mitigation Supervisor: HENNY HEATON ([phone]) [facility] ([facility]) [address] [place] [address] Urea nitrogen [Mass/Vol] 7 mg/dL Low 8-21 [facility] Comment on above: Order Comment: These orders are set for an approximate date - they can be drawn up to 3 months prior to the Expected Date on this Req. Please send results to: [address] [place] [phone] - [phone] And if not done at a [facility], please send to: [place] [address] Patient Name: Anne Marie Tran 1995 Order Created by : Peggy Friedman MA Performed By: #### L AB68, [id number], LAB67, LAB17, LAB18, LAB69 #### Mitigation Supervisor: HENNY HEATON ([phone]) [facility] ([facility]) [address] [place] [address] [place] Cobalamin (Vitamin B12) [Mas s/Vol]on 02-11-2024 Interpretation and review of laboratory results Normal [facility] Comprehensive metabolic 1998 panelon 02-11-2024 Albumin [Mass/Vol] 3.6 g/dL 3.5 - 5.0 g/dL [facility] ALP [Catalytic activity/Vol] 73 U/L 40 - 150 U/L [facility] ALT [Catalytic activity/Vol] 18 U/L NINF - 30 U/L [facility] Anion gap [Moles/Vol] 6 mmol/L 3 - 13 mmol/L [facility] AST [Catalytic activity/Vol] 25 U[facility]L [facility] Bilirubin [Mass/Vol] 0.5 mg/dL NINF - 1.2 mg/dL [facility] Calcium [Mass/Vol] 9 mg/dL 8.4 - 10. 2 mg/dL [facility] Chloride [Moles/Vol] 105 mmol/L 98 - 10 7 mmol/L [facility] CO2 [Moles/Vol] 29 mmol/L 22 - 29 mmol/L [facility] Creatinine [Mass/Vol] 0.66 mg/dL 0.57 - 1.11 mg/dL [facility] GFR/1.73 sq M.predicted (S/P/Bld) [Vol rate/Area] - PINF [facility] Comment on above: Calculation based on the Chronic Kidney Disease Epidemiology Collaboration (CKD-EPI) equation refit without adjustment for race Glucose [Mass/Vol] 81 mg/dL 74 - 100 mg/dL [facility] Potassium [Moles/Vol] 3.8 mmol/L 3.5 - 5.1 mmol/L [facility] Comment on above: Plasma potassium juanito ues may be up to 0.5 mmol/L lower than serum values. Protein [Mass/Vol] 6.9 g/dL 6.4 - 8.3 g/dL [facility] Sodium [Moles/Vol] 140 mmol/L 136 - 145 mmol/L [facility] Urea nitrogen [Mass/Vol] 7 mg/dL Low 8 - 21 mg/dL [facility] FERRITINon 02-11-2024 Ferritin [Mass/Vol] 13 ng/mL Normal -204 [facility] Comment on above: Result Comment: ORDE R COMMENTS: These orders are set for an approximate date - they can be drawn up to 3 months prior to the Expected Date on this Req. Please send results to: [place] [address] - [phone] And if not done at a [facility], please send to: [facility] [place] - [address] [place] [address], [address] [facility], [address] Patient Name: Anne Marie Peterson - 1995 Order Created by : Peggy Friedman MA Ferritin levels below 10 ng/mL have been reported as indicative of iron deficiency anemia. Performed By: #### L AB68, [id number], LAB67, LAB17, LAB18, LAB69 #### Mitigation Supervisor: HENNY HEATON ([phone]) [facility] ([facility] [address] [place] [address] FOLATEon 02-11-2024 FOLATE RESULT 3.8 ng/mL Low 7.0-31.4 [facility] Comment on above: Order Comment: These orders are set for an approximate date - they can be drawn up to 3 months prior to the Expected Date on this Req. Please send results to: [facility] [address] [place] [address] - [phone] And if not done at a [facility], please send to: [facility] [address], [address] [address] Patient Name: Anne Marie Peterson - 1995 Order Created by : Peggy Friedman MA Performed By: #### L AB68, [id number], LAB67, LAB17, LAB18, LAB69 #### Mitigation Supervisor: HENNY HEATON ([phone]) [facility] ([facility] [address] [place] [address] Ferritinon 02-11-2024 Ferritin [Mass/Vol] 13 ng/mL 5 - 204 ng/mL [facility] Ferritin [Mass/Vol]on 2023 Interpretation and review of laboratory results Normal [facility] Ferritin levels belo w 10 ng/mL have been reported as indicative of iron deficiency anemia. [facility] Folateon 02-11-2024 Folate [Mass/Vol] 3.8 ng/mL Low 7.0 - 31.4 ng/mL [facility] Folate [Mass/Vol]on 02-11-20 24 Interpretation and review of laboratory results Abnormal [facility] IRONon 02-11-2024 IRON, TOTAL 17 ug/dL Low 50-170 [facility] Comment on above: Order Comment: These orders are set for an approximate date - they can be drawn up to 3 months prior to the Expected Date on this Req.Please send results to: [address] [place] [phone] - [phone] if not done at a [facility], please send to:[address], [address]Hgcmy: [phone] Uuqzpxn Name: Anne Marie Peterson - 1995Order Created by : Peggy Friedman MA Performed By: #### L AB68, [id number], LAB67, LAB17, LAB18, LAB69 #### Mitigation Supervisor: HENNY HEATON ([phone]) [facility] ([facility]) [address] [place] [address] Iron and Iron binding capaci ty panelon 02-11-2024 Interpretation and review of laboratory results Abnormal [facility] Iron [Mass/Vol] 17 ug/dL Low 50 - 170 ug/dL [facility] LIPID PANELon 02-11-2024 Cholesterol [Mass/Vol] 132 mg/dL Normal <200 [facility] Comment on above: Order Comment: These orders are set for an approximate date - they can be drawn up to 3 months prior to the Expected Date on this Req. Please send results to: [address] [place] [phone] - [phone] And if not done at a [facility], please send to: [address], [address] Patient Name: Anne Marie Peterson - 1995 Order Created by : Peggy Friedman MA Performed By: #### L AB68, [id number], LAB67, LAB17, LAB18, LAB69 #### Mitigation Supervisor: HENNY HEATON ([phone]) [facility] ([facility]) [address] [place] [address] Cholesterol in HDL [Mass/Vol] 32 mg/dL Low >=60 [facility] Comment on above: Order Comment: These orders are set for an approximate date - they can be drawn up to 3 months prior to the Expected Date on this Req. Please send results to: [facility] [address] [place] [phone] - [phone] And if not done at a [facility], please send to: [address], [address] Patient Name: Anne Marie Peterson 1995 Order Created by : Peggy Friedman MA Performed By: #### L AB68, [id number], LAB67, LAB17, LAB18, LAB69 #### Mitigation Supervisor: HENNY HEATON ([phone]) [facility] ([facility]) [address] [place] [address] Cholesterol.total/Gerardo sterol in HDL [Mass ratio] 4 {ratio} Normal [facility] Comment on above: Order Comment: These orders are set for an approximate date - they can be drawn up to 3 months prior to the Expected Date on this Req. Please send results to: [facility] [address] [place] [phone] - [phone] And if not done at a [facility], please send to: [address], [address] Patient Name: Anne Marie Peterson 1995 Order Created by : Peggy Friedman MA Result Comment: Ref Range: < 3 Low Risk for CHD 3-6 Mod Risk for CHD > 6 High Risk for CHD Performed By: #### L AB68, [id number], LAB67, LAB17, LAB18, LAB69 #### Mitigation Supervisor: HENNY HEATON ([phone]) [facility] ([facility]) [address] [place] [address] [place] LOW DENSITY LIPOPROTEIN 85 mg/dL Normal 0-<100 [facility] Comment on above: Order Comment: These orders are set for an approximate date - they can be drawn up to 3 months prior to the Expected Date on this Req. Please send results to: [facility] [address] [place] [address] - [phone] And if not done at a [facility], please send to: [facility] - [address] [place] [address], [facility] Patient Name: Anne Marie Peterson - 1995 Order Created by : Peggy Friedman MA Performed By: #### L AB68, [id number], LAB67, LAB17, LAB18, LAB69 #### Mitigation Supervisor: HENNY HEATON ([phone]) [facility] ([facility]) [address] [place] [address] NON-HDL CHOLESTEROL, CALCULATED 100 Normal <130 [facility] Comment on above: Order Comment: These orders are set for an approximate date - they can be drawn up to 3 months prior to the Expected Date on this Req. Please send results to: [facility] [address] [place] [address] - [phone] And if not done at a [facility], please send to: [address], [facility] Patient Name: Anne Marie Peterson - 1995 Order Created by : Peggy Friedman MA Performed By: #### L AB68, QWI154, LAB67, LAB17, LAB18, LAB69 #### Mitigation Supervisor: HENNY HEATON ([phone]) [facility] ([facility] [address] [place] [address] Triglyceride [Mass/Vol] 73 mg/dL Normal <150 [facility] Comment on above: Order Comment: These orders are set for an approximate date - they can be drawn up to 3 months prior to the Expected Date on this Req. Please send results to: [facility] [address] [place] [phone] - [phone] And if not done at a [facility], please send to: [facility] - [address] [place] [address], [address], [facility] Patient Name: Anne Marie Peterson - 1995 Order Created by : Peggy Friedman MA Performed By: #### L AB68, [id number], LAB67, LAB17, LAB18, LAB69 #### Mitigation Supervisor: HENNY HEATON ([phone]) [facility] ([facility]) [address] [place] [address] VERY LOW DENSITY LIPOPROTEIN, CALCULATED 15 mg/dL Normal <=30 [facility] Comment on above: Order Comment: These orders are set for an approximate date - they can be drawn up to 3 months prior to the Expected Date on this Req. Please send results to: [address] [place] [address] - [phone] And if not done at a [facility], please send to: [facility] - [address] [place] [address], [place] [address] Patient Name: Anne Marie Peterson - 1995 Order Created by : Peggy Friedman MA Performed By: #### L AB68, [id number], LAB67, LAB17, LAB18, LAB69 #### Mitigation Supervisor: HENNY HEATON ([phone]) [facility] ([facility]) [address] [place] [address] Lipid 1996 panelon 4 Cholesterol [Mass/Vol] 132 mg/dL NINF - 200 mg/dL [facility] [employer] Cholesterol in HDL [Mass/Vol] 32 mg/dL Low 60 - PINF mg/dL [facility] Cholesterol in LDL [Mass/Vol] 85 mg/dL 0 - <100 [facility] Cholesterol.total/Gerardo sterol in HDL [Mass ratio] 4 {ratio} [facility] Comment on above: Ref Range: < 3 Low Risk for CHD 3-6 Mod Risk for CHD > 6 High Risk for CHD NON-HDL CHOLESTEROL, CALCULATED 100 NINF - 130 [facility] Triglyceride [Mass/Vol] 73 mg/dL NINF - 150 mg/dL [facility] VERY LOW DENSITY LIPOPROTEIN, CALCULATED 15 mg/dL [facility] mg/dL [facility] MAGNESIUMon 02-11-2024 Magnesium [Mass/Vol] 1.8 mg/dL Normal 1.6-2.6 [facility] Comment on above: Result Comment: SPENCER R COMMENTS: These orders are set for an approximate date - they can be drawn up to 3 months prior to the Expected Date on this Req. Please send results to: [address] [place] [address] - [phone] And if not done at a [facility], please send to: [facility] [place] - [address] [place] [address], [address] [place] [address] Patient Name: Anne Marie Kristen - 1995 Order Created by : Peggy Friedman MA Higher values can be expected in females during menses. Performed By: #### L AB68, [id number], LAB67, LAB17, LAB18, LAB69 #### Mitigation Supervisor: HENNY HEATON ([phone]) [facility] ([facility] [address] [place] [address] Magnesiumon 02-11-2024 Magnesium [Mass/Vol] 1.8 mg/dL 1.6 - 2 .6 mg/dL [facility] Magnesium [Mass/Vol]on 02-10 Interpretation and review of laboratory results Normal [facility] Higher values can be expected in females during menses. [facility] No Panel Informationon 02-10 [facility] Interpretation and review of laboratory results Abnormal [facility] Office Visiton 02-11-2024 Follow-up visit [id number] Anne Marie Peterson 1995 F Date Provider Department Center 02/11/2024 [facility]LY [facility] [address] Family History Problem Relation Age of Onset Cancer Mother Hypertension Mother Obesity Mother Heart disease Father Obesity Father Cancer Maternal Grandmother Heart disease Maternal Grandmother Stroke Maternal Grandfather Hypertension Maternal Grandfather Heart disease Maternal Grandfather Diabetes Maternal Grandfather Obesity Maternal Grandfather Anesthesia problems Maternal Grandfather Family Status - Relation Status Age at Mother Alive Father Alive Maternal Grandmother Alive Maternal Grandfather Alive Level of Service:66427 HI OFFICE/OUTPATIENT ESTABLISHED MOD MDM 30 MIN Reason for Visit and Comments: Follow-up [916746] Normal [facility] Progress Noteon 02-11-2024 Progress Note Compliant nightly. Normal [facility] Progress Note She has done well wi th no recurrent episodes of AF since her bariatric surgery. Lifestyle factors are being addressed. She has flecainide as pill in pocket if needed. She will call us if she has more episodes and we can consider ablation. No OAC due to low stroke risk. Normal [facility] Progress Note Well controlled. Stressed importance of good blood pressure control which will help with control of her afib. Normal [facility] Progress Note [facility] CARDIOL [facility] - [place] [address] [facility] [address] Dept: [phone] Dept Visit type: Established : 1995 Reason for Visit: Follow-up Assessment and Plan 1. Paroxysmal atrial fibrillation (HCC) Assessment & Plan: She has done well with no recurrent episodes of AF since her bariatric surgery. Lifestyle factors are being addressed. She has flecainide as pill in pocket if needed. She will call us if she has more episodes and we can consider ablation. No OAC due to low stroke risk. Orders: - ECG 12 lead - CLINIC PERFORMED 2. Primary hypertension Assessment & Plan: Well controlled. Stressed importance of good blood pressure control which will help with control of her afib. 3. MOE on CPAP Assessment & [...] had to use. She wears her CPAP nightly. BP has been well controlled. EKG today on [...] 1 tablet by mouth daily. nystatin (Mycostatin) 536025 UNIT/GM powder Apply topically 2 times daily. 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 90 capsule 1 No facility-administered medications prior to [...] / [facility] UPPER GASTROINTESTINAL ENDOSCOPY Family History Problem Relation [...] oriented to person, place, and time. Data R (more content not included)... Normal [facility] VITAMIN B1, WHOLE BLOOD (BKR [facility])on 02-11-2024 [facility] VITAMIN B1 (THIAMINE), BLOOD, LC/MS/MS 98 nmol/L Normal 78-185 [facility] Comment on above: Order Comment: These orders are set for an approximate date - they can be drawn up to 3 months prior to the Expected Date on this Req. Please send results to: [address] [place] [phone] - [phone] And if not done at a [facility], please send to: [facility] [place] - [address] [place] [address], [address] [facility], [address] Patient Name: Anne Marie Peterson - 1995 Order Created by : Peggy Friedman MA Result Comment: Vitamin supplementation within 24 hours prior to blood draw may affect the accuracy of the results. This test was developed and its analytical performance characteristics have been determined by [facility] [place], [place]. It has not been cleared or approved by the U.S. Food and Drug Administration. This assay has been validated pursuant to the CLIA regulations and is used for clinical purposes. Test Performed by [facility], [facility], [address] [place], [place] Julius Seth M.D., Ph.D., Director of Laboratories , CLIA [id number] Performed By: #### L AB68, [id number], LAB67, LAB17, LAB18, LAB69 #### Mitigation Supervisor: HENNY HEATON ([phone]) [facility] ([facility]) [address] [place] [address] VITAMIN B12on 02-11-2024 Cobalamin (Vitamin B12) [Mass/Vol] 302 pg/mL Normal 213-816 [facility] Comment on above: Order Comment: These orders are set for an approximate date - they can be drawn up to 3 months prior to the Expected Date on this Req. Please send results to: [facility] [address] [place] [address] - [phone] And if not done at a [facility], please send to: [facility] - [address] [place] [address], [address], [address] Patient Name: Anne Marie Peterson - 1995 Order Created by : Peggy Friedman MA Performed By: #### L AB68, [id number], LAB67, LAB17, LAB18, LAB69 #### Mitigation Supervisor: HENNY HEATON ([phone]) [facility] ([facility] [address] [place] [address] VITAMIN D DEFICIENCY SCREENI NG (VIT D 25)on 02-11-2024 VIT D 25-OH, TOTAL 14 ng/mL Low >20 [facility] Comment on above: Result Comment: SPENCER R COMMENTS: These orders are set for an approximate date - they can be drawn up to 3 months prior to the Expected Date on this Req. Please send results [place]: [place] [address] - [phone] And if not done at a [facility], please send to: [address], [address] Patient Name: Anne Marie Peterson - 1995 Order Created by : Peggy Friedman MA Target concentration: 30 - 40 ng/mL; toxicity seen at concentrations >100 ng/mL Therapy is based on measurement of Total 25-OHD with the following classification levels: Less than 20 ng/mL: Indicative of Vit D deficiency 20-30 ng/mL: Suggests Vit D insufficiency Optimal: Greater than or equal to 30 ng/mL Test performed by [employer] Competitive Immunoassay, measuring Total Vitamin D, not individual fractions. Performed By: #### L AB68, KHC218, LAB67, LAB17, LAB18, LAB69 #### Mitigation Supervisor: HENNY HEATON ([phone]) [facility] ([facility]) [address] [place] [address] Vitamin B12on 02-11-2024 Cobalamin (Vitamin B12) [Mass/Vol] 302 pg/mL 213 - 816 pg/mL [facility] Vitamin D Deficiency Screeni ng (Vit D 25)on 02-11-2024 25-hydroxyvitamin D3 [Mass/Vol] 14 ng/mL Low 20 - PINF ng/mL [facility] ZINC (BKR [facility])on 4 [facility] ZINC 55 mcg/dL Low 60-130 [facility] Comment on above: Order Comment: These orders are set for an approximate date - they can be drawn up to 3 months prior to the Expected Date on this Req. Please send results to: [place] [phone] - [phone] And if not done at a [facility], please send to: [facility] - [address] [place] [address], [address], [address] Patient Name: Anne Marie Peterson - 1995 Order Created by : Peggy Friedman MA Result Comment: This test was developed and its analytical performance characteristics have been determined by [facility] [place], [place]. It has not been cleared or approved by the U.S. Food and Drug Administration. This assay has been validated pursuant to the CLIA regulations and is used for clinical purposes. Test Performed by [facility], [facility], [address] [place], [place] Julius Seth M.D., Ph.D., Director of Laboratories , CLIA [id number] Performed By: #### L AB581 #### [email or web address] (AMDBEAKER) [address] [place], [place] [facility] MRCP Abdomen without Contras ton 12-22-2023 MRCP Abdomen without Contrast Normal [facility] Bilirubin, Directon 12-17-19 Bilirubin.direct [Mass/Vol] 0.32 mg/dL High 0.00-0.[address] [facility] Comment on above: Performed By: #### L 501.4700, L500.4050, L100.0100 ####[facility] [address] [place], [address] CBC W/Diff, Automatedon 11-23 Absolute Lymph 2.04 X10 3/uL Normal 0.83-4.[address] [facility] Comment on above: Order Comment: DR.SM CHRISTIAN AND DORIS ORDERED CBCD Performed By: #### L 501.4700, L500.4050, L100.0100 ####[facility] [address] [place], [address] Absolute Neut 2.9 X10 3/uL Normal 2.0-7.[address] [facility] Comment on above: Order Comment: DR.SM CHRISTIAN AND DORIS ORDERED CBCD Performed By: #### L 501.4700, L500.4050, L100.0100 ####[facility] [address] [place], [address] Basophils/100 WBC (Bld) 0.6 % Normal 0-1 [facility] Comment on above: Order Comment: DR.SM CHRISTIAN AND DORIS ORDERED CBCD Performed By: #### L 501.4700, L500.4050, L100.0100 ####[facility] [address] [place], [address] Eosinophils/100 WBC (Bld) 0.6 % Normal 0-[address] [facility] Comment on above: Order Comment: DR.SM CHRISTIAN AND DORIS ORDERED CBCD Performed By: #### L 501.4700, L500.4050, L100.0100 ####[facility] [address] [place], [address] Erythrocyte distribution width (RBC) [Ratio] 16.0 % High 11.6-14.[address] [facility] Comment on above: Order Comment: DR.SM CHRISTIAN AND DORIS ORDERED CBCD Performed By: #### L 501.4700, L500.4050, L100.0100 ####[facility] [address] [place], [address] Hematocrit (Bld) [Volume fraction] 37.1 % Normal 37-[address] [facility] Comment on above: Order Comment: DR.SM CHRISTIAN AND DORIS ORDERED CBCD Performed By: #### L 501.4700, L500.4050, L100.0100 ####[facility] [address] [place], [address] Hemoglobin (Bld) [Mass/Vol] 11.4 g/dL Low 12.0-15.[address] [facility] Comment on above: Order Comment: DR.SM BELTRAN ORDERED CBCD Performed By: #### L 501.4700, L500.4050, L100.0100 ####[facility] [address] [place], [address] IG% 0.400 Normal 0.0-0.[address] [facility] Comment on above: Order Comment: DR.SM CHRISTIAN AND DORIS ORDERED CBCD Result Comment: IG% - Immature Granulocytes (promyelocytes, myelocytes andmetamyelocytes) > 1% indicates that a LEFT SHIFT is Present. Performed By: #### L 501.4700, L500.4050, L100.0100 ####[facility] [address] [place], [address] Lymphocytes/100 WBC (Bld) 38.0 % Normal 19-[address] [facility] Comment on above: Order Comment: DR.SM CHRISTIAN AND DORIS ORDERED CBCD Performed By: #### L 501.4700, L500.4050, L100.0100 ####[facility] [address] [place], [address] MCH (RBC) [Entitic mass] 22.7 pg Low 27.0-32.[address] [facility] Comment on above: Order Comment: DR.SM CHRISTIAN AND DORIS ORDERED CBCD Performed By: #### L 501.4700, L500.4050, L100.0100 ####[facility] [address] [place], [address] MCHC (RBC) [Mass/Vol] 30.7 g/dL Low 32-36 [facility] Comment on above: Order Comment: DR.SM CHRISTIAN AND DORIS ORDERED CBCD Performed By: #### L 501.4700, L500.4050, L100.0100 ####[facility] [address] [place], [address] MCV (RBC) [Entitic vol] 73.9 fL Low 81-99 [facility] Comment on above: Order Comment: DR.SM CHRISTIAN AND DORIS ORDERED CBCD Performed By: #### L 501.4700, L500.4050, L100.0100 ####[facility] [address] [place], [address] Monocytes/100 WBC (Bld) 7.1 % Normal 0-10 [facility] Comment on above: Order Comment: DR.SM CHRISTIAN AND DORIS ORDERED CBCD Performed By: #### L 501.4700, L500.4050, L100.0100 ####[facility] [address] [place], [address] Neutrophils/100 WBC (Bld) 53.3 % Normal 47-[address] [facility] Comment on above: Order Comment: DR.SM CHRISTIAN AND DORIS ORDERED CBCD Performed By: #### L 501.4700, L500.4050, L100.0100 ####[facility] [address] [place], [address] Nucleated RBC (Bld) [#/Vol] 0 10*3/uL Normal 0-[address] [facility] Comment on above: Order Comment: DR.SM CHRISTIAN AND DORIS ORDERED CBCD Performed By: #### L 501.4700, L500.4050, L100.0100 ####[facility] [address] [place], [address] Platelet mean volume (Bld) [Entitic vol] 10.3 fL Normal 6.2-12.[address] [facility] Comment on above: Order Comment: DR.SM CHRISTIAN AND DORIS ORDERED CBCD Performed By: #### L 501.4700, L500.4050, L100.0100 ####[facility] [address] [place], [address] Platelets (Bld) [#/Vol] 344 10*3/uL Normal 150-[address] [facility] Comment on above: Order Comment: DR.SM CHRISTIAN AND DORIS ORDERED CBCD Performed By: #### L 501.4700, L500.4050, L100.0100 ####[facility] [address] [place], [address] RBC (Bld) [#/Vol] 5.02 10*6/uL Normal 4.2-5.4 [facility] Comment on above: Order Comment: DR.SM CHRISTIAN AND DORIS ORDERED CBCD Performed By: #### L 501.4700, L500.4050, L100.0100 ####[facility] [address] [place], [address] RDW SD 42.7 fl Normal 35.1-43.[address] [facility] Comment on above: Order Comment: DR.SM CHRISTIAN AND DORIS ORDERED CBCD Performed By: #### L 501.4700, L500.4050, L100.0100 ####[facility] [address] [place], [address] WBC (Bld) [#/Vol] 5.4 10*3/uL Normal 4.4-11.0 [facility] Comment on above: Order Comment: DR.SM CHRISTIAN AND DORIS ORDERED CBCD Performed By: #### L 501.4700, L500.4050, L100.0100 ####[facility] [address] [place], [address] Comprehensive Metabolic [facility] 12-17-2023 Albumin [Mass/Vol] 3.6 g/dL Normal 3.2-5.0 [facility] Comment on above: Performed By: #### L 501.4700, L500.4050, L100.0100 ####[facility] [address] [place], [address] Albumin/Globulin [Mass ratio] 0.9 {ratio} Normal 0.9-2.[address] [facility] Comment on above: Performed By: #### L 501.4700, L500.4050, L100.0100 ####[facility] [address] [place], [address] ALK P 75 U/L Normal 45-[address] [facility] Comment on above: Performed By: #### L 501.4700, L500.4050, L100.0100 ####[facility] [address] [place], [address] ALT [Catalytic activity/Vol] 30 U/L Normal 13-[address] [facility] Comment on above: Performed By: #### L 501.4700, L500.4050, L100.0100 ####[facility] [address] [place], [address] AST [Catalytic activity/Vol] 27 U/L Normal 15-[address] [facility] Comment on above: Performed By: #### L 501.4700, L500.4050, L100.0100 ####[facility] [address] [place], [address] Bilirubin [Mass/Vol] 0.60 mg/dL Normal 0.20-1.00 [facility] Comment on above: Result Comment: For patients on eltrombopag therapy, use of Dimension [place] TBIL is not recommended. Performed By: #### L 501.4700, L500.4050, L100.0100 ####[facility] [address] [place], [address] BUN/CRE 12.4 RATIO Normal 10-[address] [facility] Comment on above: Performed By: #### L 501.4700, L500.4050, L100.0100 ####[facility] [address] [place], [address] CA,Total 9.4 mg/dL Normal 8.5-10.[address] [facility] Comment on above: Performed By: #### L 501.4700, L500.4050, L100.0100 ####[facility] [address] [place], [address] Chloride [Moles/Vol] 110 mmol/L High 98-107 [facility] Comment on above: Performed By: #### L 501.4700, L500.4050, L100.0100 ####[facility] [address] [place], [address] CO2 [Moles/Vol] 25.0 mmol/L Normal 21.0-32.[address] [facility] Comment on above: Performed By: #### L 501.4700, L500.4050, L100.0100 ####[facility] [address] [place], [address] Creatinine [Mass/Vol] 0.65 mg/dL Normal 0.55-1.02 [facility] Comment on above: Result Comment: The validity of the calculated GFR GFRAA in patients over70 years has not been determined. Clinical correlation isessential. Performed By: #### L 501.4700, L500.4050, L100.0100 ####[facility] [address] [place], [address] EST GFR - AA 140 mL/min Normal >[address] [facility] Comment on above: Result Comment: Afri can Ukrainian GFR Calc Performed By: #### L 501.4700, L500.4050, L100.0100 ####[facility] [address] [place], [address] GAP 7 Normal 5-[address] [facility] Comment on above: Performed By: #### L 501.4700, L500.4050, L100.0100 ####[facility] [address] [place], [address] GFR/1.73 sq M.predicted among non-blacks MDRD (S/P/Bld) [Vol rate/Area] 116 mL/min/{1.73_m2} Normal >[address] [facility] Comment on above: Result Comment: Non- GFR Calc Performed By: #### L 501.4700, L500.4050, L100.0100 ####[facility] [address] [place], [address] Globulin (S) [Mass/Vol] 4.0 g/dL Normal 2.2-4.2 [facility] Comment on above: Performed By: #### L 501.4700, L500.4050, L100.0100 ####[facility] [address] [place], [address] Glucose [Mass/Vol] 86 mg/dL Normal 74-106 [facility] Comment on above: Performed By: #### L 501.4700, L500.4050, L100.0100 ####[facility] [address] [place], [address] Potassium [Moles/Vol] 3.7 mmol/L Normal 3.5-5.1 [facility] Comment on above: Performed By: #### L 501.4700, L500.4050, L100.0100 ####[facility] [address] [place], [address] Sodium [Moles/Vol] 141 mmol/L Normal 136-145 [facility] Comment on above: Performed By: #### L 501.4700, L500.4050, L100.0100 ####[facility] [address] [place], [address] T PROT 7.6 g/dL Normal 6.4-8.[address] [facility] Comment on above: Performed By: #### L 501.4700, L500.4050, L100.0100 ####[facility] [address] [place], [address] Urea nitrogen [Mass/Vol] 8 mg/dL Normal 7-[address] [facility] Comment on above: Performed By: #### L 501.4700, L500.4050, L100.0100 ####[facility] [address] [place], [address] [facility] Visit Reporton 12-17-2023 [facility] Visit Report Normal [facility] Partial Thromboplast Timeon 11-25-2023 aPTT Coag (Bld) [Time] 31.6 s Normal 24.1-36.2 [facility] Comment on above: Performed By: #### L 300.4310, L100.1900, L300.3900 ####[facility] [address] [place], [address] Platelet Counton 11-25-2023 Platelets (Bld) [#/Vol] 259 10*3/uL Normal 150-[address] [facility] Comment on above: Performed By: #### L 300.4310, L100.1900, L300.3900 ####[facility] [address] [place], [address] Procedure Reporton Procedure Report Normal [facility] Prothrombin Time w/INRon INR Coag (PPP) [Relative time] 1.0 {INR} Normal [facility] Comment on above: Performed By: #### L 300.4310, L100.1900, L300.3900 ####[facility] [address] [place], [address] PT Coag (PPP) [Time] 13.5 s Normal 11.7-14.9 [facility] Comment on above: Performed By: #### L 300.4310, L100.1900, L300.3900 ####[facility] [address] [place], [address] Trichrome (control)on 2023 Trichrome (control) Normal [facility] Comment on above: Performed By: #### P TRI ####[facility] [address] [place], [place], [address] 36on 11-19-2023 36 Noted and reviewed, thanks Will be scanned Normal [facility] 36on 11-17-2023 36 Records received, placed in physician folder for review. Normal [facility] PAP I-G w/rfx hrHPV-Aptimaon 11-16-2023 ADEQ Comment Normal . [facility] Comment on above: Order Comment: Speci men Comment: [id number] Comment: Source.............Cervix;EndocervixSpecimen Comment: No. of containers..01 ThinPrep Vial Result Comment: Sati sfactory for evaluation. Endocervical and/or squamous metaplasticcells (endocervical component) are present. Performed By: #### L 7400.0353 ####[facility] [address] [place], [place], [address] COMM . Normal . [facility] Comment on above: Order Comment: Speci men Comment: [id number] Comment: Source.............Cervix;EndocervixSpecimen Comment: No. of containers..01 ThinPrep Vial Performed By: #### L 7400.0353 ####[facility] [address] [place], [place], [address] COMMENT Comment Normal . [facility] Comment on above: Order Comment: Speci men Comment: [id number] Comment: Source.............Cervix;EndocervixSpecimen Comment: No. of containers..01 ThinPrep Vial Result Comment: This liquid based ThinPrep(R) pap test was screened withthe use of an image guided system. Performed By: #### L 7400.0353 ####[facility] [address] [place], [place], [id number] DIAG Comment Normal . [facility] Comment on above: Order Comment: Speci men Comment: [id number] Comment: Source.............Cervix;EndocervixSpecimen Comment: No. of containers..01 ThinPrep Vial Result Comment: NEGA TIVE FOR INTRAEPITHELIAL LESION OR MALIGNANCY. Performed By: #### L 7400.0353 ####[facility] [address] [place], [place], [address] HPV RFLX Comment Normal . [facility] Comment on above: Order Comment: Speci men Comment: [id number] Comment: Source.............Cervix;EndocervixSpecimen Comment: No. of containers..01 ThinPrep Vial Result Comment: The HPV DNA reflex criteria were not met with this specimenresult therefore, no HPV testing was performed.Performed at: [facility] [address] [place], [place] [id number] Director: Frankie Patino MD, Phone: [phone] at: - Lab[address] [id number] Director: Ese Pastor MD, Phone: [phone] Performed By: #### L 7400.0353 ####[facility] [address] [place], [place], [address] PAPSMR Comment Normal . [facility] Comment on above: Order Comment: Speci men Comment: [id number] Comment: Source.............Cervix;EndocervixSpecimen Comment: No. of containers..01 ThinPrep Vial Result Comment: The Pap smear is a screening test designed to aid in thedetection of premalignant and malignant conditions of theuterine cervix. It is not a diagnostic procedure andshould not be used as the sole means of detecting cervicalcancer. Both false-positive and false-negative reports dooccur. Performed By: #### L 7400.0353 ####[facility] [address] [place], [place], [address] PERFORM Comment Normal . [facility] Comment on above: Order Comment: Speci men Comment: [id number] Comment: Source.............Cervix;EndocervixSpecimen Comment: No. of containers..01 ThinPrep Vial Result Comment: Hyacinth Hendrickson, Solvent Recoverer (ASCP) Performed By: #### L 7400.0353 ####[facility] [address] [place], [place], [address] ANCAon 11-15-2023 Atypical pANCA <1:20 Normal Neg:<1:[address] [facility] Comment on above: Order Comment: Test( s) 079930-Cqxwwf, Serum or Plasmawas developed and its performance characteristicsdetermined by [employer]. It has not been cleared or approvedby the Food and Drug Administration. Result Comment: The atypical pANCA pattern has been observed in asignificant percentage of patients with ulcerative colitis,primary sclerosing cholangitis and autoimmune hepatitis. Performed By: #### L 803.2200, L101.9900, L3410.2400, L3300.1200, L3200.0500, L3300.0100, L501.2450, L3100.6900, L3400.0700, L500.4050, L501.4700, L3100.5440, L501.6710, L800.1280 ####[facility] [address] [place], [place], [address] Cytoplasmic Ab <1:20 Normal Neg:<1:[address] [facility] Comment on above: Order Comment: Test( s) 191047-Rkwyoo, Serum or Plasmawas developed and its performance characteristicsdetermined by [employer]. It has not been cleared or approvedby the Food and Drug Administration. Performed By: #### L 803.2200, L101.9900, L3410.2400, L3300.1200, L3200.0500, L3300.0100, L501.2450, L3100.6900, L3400.0700, L500.4050, L501.4700, L3100.5440, L501.6710, L800.1280 ####[facility] [address] [place], [place], [address] Perinuclear Ab. <1:20 Normal Neg:<1:[address] [facility] Comment on above: Order Comment: Test( s) 347243-Enkjpt, Serum or Plasmawas developed and its performance characteristicsdetermined by [employer]. It has not been cleared or approvedby the Food and Drug Administration. Result Comment: The presence of positive fluorescence exhibiting P-ANCA orC-ANCA patterns alone is not specific for the diagnosis ofWegener's Granulomatosis (WG) or microscopic polyangiitis.Decisions about treatment should not be based solely onANCA IFA results. The International ANCA Group Consensusrecommends follow up testing of positive sera with both HI-3 and MPO-ANCA enzyme immunoassays. As many as 5% serumsamples are positive only by EIA. Ref. AM J Clin Odipgz5231;111:507-513. Performed By: #### L 803.2200, L101.9900, L3410.2400, L3300.1200, L3200.0500, L3300.0100, L501.2450, L3100.6900, L3400.0700, L500.4050, L501.4700, L3100.5440, L501.6710, L800.1280 ####[facility] [address] [place], [place], [address] Angiotensin Convert Enzymeon 11-15-2023 ANGIOT-CONV.ENZ 86 U/L High 14-[address] [facility] Comment on above: Order Comment: Test( s) 792988-Ijheib, Serum or Plasmawas developed and its performance characteristicsdetermined by [employer]. It has not been cleared or approvedby the Food and Drug Administration. Performed By: #### L 803.2200, L101.9900, L3410.2400, L3300.1200, L3200.0500, L3300.0100, L501.2450, L3100.6900, L3400.0700, L500.4050, L501.4700, L3100.5440, L501.6710, L800.1280 ####[facility] [address] [place], [place], [address] Anti-Smooth Muscle ABSon ANTISMOOTH MUSC 21 Units Abnormal 0-[address] [facility] Comment on above: Order Comment: Test( s) 181058-Eglyaw, Serum or Plasmawas developed and its performance characteristicsdetermined by [employer]. It has not been cleared or approvedby the Food and Drug Administration. Result Comment: Nega tive 0 - 19 Weak positive 20 - 30 Moderate to strong positive >30 Actin Antibodies are found in 52-85% of patients with autoimmune hepatitis or chronic active hepatitis and in 22% of patients with primary biliary cirrhosis. Performed By: #### L 803.2200, L101.9900, L3410.2400, L3300.1200, L3200.0500, L3300.0100, L501.2450, L3100.6900, L3400.0700, L500.4050, L501.4700, L3100.5440, L501.6710, L800.1280 ####[facility] [address] [place], [address] Celiac Disease Profileon ENDOMYSIAL IGA Negative Normal Negative [facility] Comment on above: Order Comment: Test( s) 740151-Gtrvei, Serum or Plasmawas developed and its performance characteristicsdetermined by [employer]. It has not been cleared or approvedby the Food and Drug Administration. Result Comment: Note : Specimen is icteric. Performed By: #### L 803.2200, L101.9900, L3410.2400, L3300.1200, L3200.0500, L3300.0100, L501.2450, L3100.6900, L3400.0700, L500.4050, L501.4700, L3100.5440, L501.6710, L800.1280 ####[facility] [address] [place], [place], [id number] IMMUNOGLOB A QN 540 mg/dL High 87-[address] [facility] Comment on above: Order Comment: Test( s) 669815-Gdprev, Serum or Plasmawas developed and its performance characteristicsdetermined by [employer]. It has not been cleared or approvedby the Food and Drug Administration. Performed By: #### L 803.2200, L101.9900, L3410.2400, L3300.1200, L3200.0500, L3300.0100, L501.2450, L3100.6900, L3400.0700, L500.4050, L501.4700, L3100.5440, L501.6710, L800.1280 ####[facility] [address] [place], [address] tTG IGA <2 Normal 0-[address] [facility] Comment on above: Order Comment: Test( s) 866350-Qrmhby, Serum or Plasmawas developed and its performance characteristicsdetermined by [employer]. It has not been cleared or approvedby the Food and Drug Administration. Result Comment: Nega tive 0 - 3 Weak Positive 4 - 10 Positive >10 Tissue Transglutaminase (tTG) has been identified as the endomysial antigen. Studies have demonstr- ated that endomysial IgA antibodies have over 99% specificity for gluten sensitive enteropathy. Performed By: #### L 803.2200, L101.9900, L3410.2400, L3300.1200, L3200.0500, L3300.0100, L501.2450, L3100.6900, L3400.0700, L500.4050, L501.4700, L3100.5440, L501.6710, L800.1280 ####[facility] [address] [place], [place], [id number] Ceruloplasminon 11-15-2023 CERULOPLASMIN 25.0 mg/dL Normal 19.0-39.[address] [facility] Comment on above: Order Comment: Test( s) 242092-Ogybfh, Serum or Plasmawas developed and its performance characteristicsdetermined by [employer]. It has not been cleared or approvedby the Food and Drug Administration. Performed By: #### L 803.2200, L101.9900, L3410.2400, L3300.1200, L3200.0500, L3300.0100, L501.2450, L3100.6900, L3400.0700, L500.4050, L501.4700, L3100.5440, L501.6710, L800.1280 ####[facility] [address] [place], [address] Copper, Serum or Plasmaon COPPER, SERUM 96 ug/dL Normal 80-[address] [facility] Comment on above: Order Comment: Test( s) 905476-Riffrl, Serum or Plasmawas developed and its performance characteristicsdetermined by [employer]. It has not been cleared or approvedby the Food and Drug Administration. Result Comment: Dete ction Limit = 5Performed at: [facility] [address] [id number] Director: Xavier Salas PhD, Phone: [phone] at: [facility] [address] [id number] Director: Ayo Burns MD, Phone: [phone] Performed By: #### L 803.2200, L101.9900, L3410.2400, L3300.1200, L3200.0500, L3300.0100, L501.2450, L3100.6900, L3400.0700, L500.4050, L501.4700, L3100.5440, L501.6710, L800.1280 ####[facility] [address] [place], [address] IgG Subclasseson 11-15-2023 IgG, SUBCLASS 1 1356 mg/dL High 248-[address] [facility] Comment on above: Order Comment: Test( s) 596163-Xrhcjf, Serum or Plasmawas developed and its performance characteristicsdetermined by [employer]. It has not been cleared or approvedby the Food and Drug Administration. Performed By: #### L 803.2200, L101.9900, L3410.2400, L3300.1200, L3200.0500, L3300.0100, L501.2450, L3100.6900, L3400.0700, L500.4050, L501.4700, L3100.5440, L501.6710, L800.1280 ####[facility] [address] [place], [address] IgG, SUBCLASS 2 273 mg/dL Normal 130-[address] [facility] Comment on above: Order Comment: Test( s) 298213-Qhzlwj, Serum or Plasmawas developed and its performance characteristicsdetermined by [employer]. It has not been cleared or approvedby the Food and Drug Administration. Performed By: #### L 803.2200, L101.9900, L3410.2400, L3300.1200, L3200.0500, L3300.0100, L501.2450, L3100.6900, L3400.0700, L500.4050, L501.4700, L3100.5440, L501.6710, L800.1280 ####[facility] [address] [place], [address] IgG, SUBCLASS 3 > 219 High 15-[address] [facility] Comment on above: Order Comment: Test( s) 077685-Pjyado, Serum or Plasmawas developed and its performance characteristicsdetermined by [employer]. It has not been cleared or approvedby the Food and Drug Administration. Performed By: #### L 803.2200, L101.9900, L3410.2400, L3300.1200, L3200.0500, L3300.0100, L501.2450, L3100.6900, L3400.0700, L500.4050, L501.4700, L3100.5440, L501.6710, L800.1280 ####[facility] [address] [place], [address] IgG, SUBCLASS 4 70 mg/dL Normal 2-[address] [facility] Comment on above: Order Comment: Test( s) 709847-Tgiskz, Serum or Plasmawas developed and its performance characteristicsdetermined by [employer]. It has not been cleared or approvedby the Food and Drug Administration. Performed By: #### L 803.2200, L101.9900, L3410.2400, L3300.1200, L3200.0500, L3300.0100, L501.2450, L3100.6900, L3400.0700, L500.4050, L501.4700, L3100.5440, L501.6710, L800.1280 ####[facility] [address] [place], [address] IGG,QUANT 2173 mg/dL High 586-[address] [facility] Comment on above: Order Comment: Test( s) 310216-Lezteu, Serum or Plasmawas developed and its performance characteristicsdetermined by [employer]. It has not been cleared or approvedby the Food and Drug Administration. Performed By: #### L 803.2200, L101.9900, L3410.2400, L3300.1200, L3200.0500, L3300.0100, L501.2450, L3100.6900, L3400.0700, L500.4050, L501.4700, L3100.5440, L501.6710, L800.1280 ####[facility] [address] [place], [place], [id number] DANGELO Comprehensive Panelon DANGELO TABLE Comment Normal . [facility] Comment on above: Result Comment: Auto antibody Disease Association --------- Condition Frequency ---------Antinuclear Antibody, SLE, mixed connectiveDirect (DANGELO-D) tissue diseases ---------dsDNA SLE 40 - 60% ---------Chromatin Drug induced SLE 90% SLE 48 - 97% ---------SSA (Ro) SLE 25 - 35% Sjogren's Syndrome 40 - 70% Lupus 100% ---------SSB (La) SLE 10% Sjogren's Syndrome 30% ---------Sm (anti-Catalan) SLE 15 - 30% ---------MEAT GRADER Mixed Connective Tissue Disease 95%(U1 nRNP, SLE 30 - 50%anti-ribonucleoprotein) Polymyositis and/or Dermatomyositis 20% ---------Scl-70 (antiDNA Scleroderma (diffuse) 20 - 35%topoisomerase) Crest 13% ---------Hollie-1 Polymyositis and/or Dermatomyositis 20 - 40% ---------Centromere B Scleroderma - Crest variant 80% Performed By: #### L 803.2200, L101.9900, L3410.2400, L3300.1200, L3200.0500, L3300.0100, L501.2450, L3100.6900, L3400.0700, L500.4050, L501.4700, L3100.5440, L501.6710, L800.1280 ####[facility] [address] [facility] [place], [place], [phone] ANTI-CENT B AB <0.2 Normal 0.0-0.[address] [facility] Comment on above: Performed By: #### L 803.2200, L101.9900, L3410.2400, L3300.1200, L3200.0500, L3300.0100, L501.2450, L3100.6900, L3400.0700, L500.4050, L501.4700, L3100.5440, L501.6710, L800.1280 ####[facility] [address] [facility] [place], [address] ANTI-DNA (DS)AB <1 Normal 0-[address] [facility] Comment on above: Result Comment: Nega tive <5 Equivocal 5 - 9 Positive >9 Performed By: #### L 803.2200, L101.9900, L3410.2400, L3300.1200, L3200.0500, L3300.0100, L501.2450, L3100.6900, L3400.0700, L500.4050, L501.4700, L3100.5440, L501.6710, L800.1280 ####[facility] [address] [place], [address] ANTI-HOLLIE-1 <0.2 Normal 0.0-0.[address] [facility] Comment on above: Performed By: #### L 803.2200, L101.9900, L3410.2400, L3300.1200, L3200.0500, L3300.0100, L501.2450, L3100.6900, L3400.0700, L500.4050, L501.4700, L3100.5440, L501.6710, L800.1280 ####[facility] [address] [place], [address] ANTI-SS-A < 0.2 Normal 0.0-0.[address] [facility] Comment on above: Performed By: #### L 803.2200, L101.9900, L3410.2400, L3300.1200, L3200.0500, L3300.0100, L501.2450, L3100.6900, L3400.0700, L500.4050, L501.4700, L3100.5440, L501.6710, L800.1280 ####[facility] [address] [place], [address] ANTI-SS-B < 0.2 Normal 0.0-0.[address] [facility] Comment on above: Performed By: #### L 803.2200, L101.9900, L3410.2400, L3300.1200, L3200.0500, L3300.0100, L501.2450, L3100.6900, L3400.0700, L500.4050, L501.4700, L3100.5440, L501.6710, L800.1280 ####[facility] [address] [place], [place], [id number] ANTICHROMATIN <0.2 Normal 0.0-0.[address] [facility] Comment on above: Performed By: #### L 803.2200, L101.9900, L3410.2400, L3300.1200, L3200.0500, L3300.0100, L501.2450, L3100.6900, L3400.0700, L500.4050, L501.4700, L3100.5440, L501.6710, L800.1280 ####[facility] [address] [place], [address] ANTISCLERODERM <0.2 Normal 0.0-0.[address] [facility] Comment on above: Performed By: #### L 803.2200, L101.9900, L3410.2400, L3300.1200, L3200.0500, L3300.0100, L501.2450, L3100.6900, L3400.0700, L500.4050, L501.4700, L3100.5440, L501.6710, L800.1280 ####[facility] [address] [place], [place], [id number] MEAT GRADER Ab 0.3 AI Normal 0.0-0.[address] [facility] Comment on above: Performed By: #### L 803.2200, L101.9900, L3410.2400, L3300.1200, L3200.0500, L3300.0100, L501.2450, L3100.6900, L3400.0700, L500.4050, L501.4700, L3100.5440, L501.6710, L800.1280 ####[facility] [address] [place], [address] CATALAN Ab <0.2 Normal 0.0-0.[address] [facility] Comment on above: Performed By: #### L 803.2200, L101.9900, L3410.2400, L3300.1200, L3200.0500, L3300.0100, L501.2450, L3100.6900, L3400.0700, L500.4050, L501.4700, L3100.5440, L501.6710, L800.1280 ####[facility] [address] [place], [place], [id number] Anti-Mitochondrial ABon - ANTIMITOCHON AB <20.0 Normal 0.0-20.[address] [facility] Comment on above: Result Comment: Nega tive 0.0 - 20.0 Equivocal 20.1 - 24.9 Positive >24.9Mitochondrial (M2) Antibodies are found in 90-96% ofpatients with primary biliary cirrhosis.Performed at: [facility] [place] [id number] Director: Xavier Salas PhD, Phone: [phone] Performed By: #### L 803.2200, L101.9900, L3410.2400, L3300.1200, L3200.0500, L3300.0100, L501.2450, L3100.6900, L3400.0700, L500.4050, L501.4700, L3100.5440, L501.6710, L800.1280 ####[facility] [address] [facility]. [place], [place], [id number] Bilirubin, Directon 11-11-19 Bilirubin.direct [Mass/Vol] 1.88 mg/dL High 0.00-0.[address] [facility] Comment on above: Performed By: #### L 803.2200, L101.9900, L3410.2400, L3300.1200, L3200.0500, L3300.0100, L501.2450, L3100.6900, L3400.0700, L500.4050, L501.4700, L3100.5440, L501.6710, L800.1280 ####[facility] [address] [place], [address] CRPon 11-11-2023 C-REACTIVE PROT 8.60 mg/L High 0.0-3.[address] [facility] Comment on above: Result Comment: C-Re active Protein (CRP) provides useful information for thediagnosis, therapy and monitoring of inflammatory processesand associated diseases. For the evaluation of Relative Riskfor Cardiovascular Disease, a High Sensitivity CRP (HSCRP)should be ordered. Performed By: #### L 803.2200, L101.9900, L3410.2400, L3300.1200, L3200.0500, L3300.0100, L501.2450, L3100.6900, L3400.0700, L500.4050, L501.4700, L3100.5440, L501.6710, L800.1280 ####[facility] [address] [facility] [place], [address] Comprehensive Metabolic Prof ilon 11-11-2023 Albumin [Mass/Vol] 3.1 g/dL Low 3.2-5.0 [facility] Comment on above: Performed By: #### L 803.2200, L101.9900, L3410.2400, L3300.1200, L3200.0500, L3300.0100, L501.2450, L3100.6900, L3400.0700, L500.4050, L501.4700, L3100.5440, L501.6710, L800.1280 ####[facility] [address] [place], [address] Albumin/Globulin [Mass ratio] 0.6 {ratio} Low 0.9-2.[address] [facility] Comment on above: Performed By: #### L 803.2200, L101.9900, L3410.2400, L3300.1200, L3200.0500, L3300.0100, L501.2450, L3100.6900, L3400.0700, L500.4050, L501.4700, L3100.5440, L501.6710, L800.1280 ####[facility] [address] [place], [place], [address] ALK P 347 U/L High 45-[address] [facility] Comment on above: Performed By: #### L 803.2200, L101.9900, L3410.2400, L3300.1200, L3200.0500, L3300.0100, L501.2450, L3100.6900, L3400.0700, L500.4050, L501.4700, L3100.5440, L501.6710, L800.1280 ####[facility] [address] [place], [place], [id number] ALT [Catalytic activity/Vol] 107 U/L High 13-[address] [facility] Comment on above: Performed By: #### L 803.2200, L101.9900, L3410.2400, L3300.1200, L3200.0500, L3300.0100, L501.2450, L3100.6900, L3400.0700, L500.4050, L501.4700, L3100.5440, L501.6710, L800.1280 ####[facility] [address] [place], [place], [id number] AST [Catalytic activity/Vol] 151 U/L High 15-[address] [facility] Comment on above: Performed By: #### L 803.2200, L101.9900, L3410.2400, L3300.1200, L3200.0500, L3300.0100, L501.2450, L3100.6900, L3400.0700, L500.4050, L501.4700, L3100.5440, L501.6710, L800.1280 ####[facility] [address] [place], [address] Bilirubin [Mass/Vol] 2.60 mg/dL High 0.20-1.00 [facility] Comment on above: Result Comment: For patients on eltrombopag therapy, use of Dimension [place] TBIL is not recommended. Performed By: #### L 803.2200, L101.9900, L3410.2400, L3300.1200, L3200.0500, L3300.0100, L501.2450, L3100.6900, L3400.0700, L500.4050, L501.4700, L3100.5440, L501.6710, L800.1280 ####[facility] [address] [place], [phone]) BUN/CRE 20.2 RATIO High 10-[address] [facility] Comment on above: Performed By: #### L 803.2200, L101.9900, L3410.2400, L3300.1200, L3200.0500, L3300.0100, L501.2450, L3100.6900, L3400.0700, L500.4050, L501.4700, L3100.5440, L501.6710, L800.1280 ####[facility] [address] [place], [address] CA,Total 9.1 mg/dL Normal 8.5-10.[address] [facility] Comment on above: Performed By: #### L 803.2200, L101.9900, L3410.2400, L3300.1200, L3200.0500, L3300.0100, L501.2450, L3100.6900, L3400.0700, L500.4050, L501.4700, L3100.5440, L501.6710, L800.1280 ####[facility] [address] [place], [phone]) Chloride [Moles/Vol] 105 mmol/L Normal 98-107 [facility] Comment on above: Performed By: #### L 803.2200, L101.9900, L3410.2400, L3300.1200, L3200.0500, L3300.0100, L501.2450, L3100.6900, L3400.0700, L500.4050, L501.4700, L3100.5440, L501.6710, L800.1280 ####[facility] [address] [place], [place], [phone] CO2 [Moles/Vol] 23.0 mmol/L Normal 21.0-32.[address] [facility] Comment on above: Performed By: #### L 803.2200, L101.9900, L3410.2400, L3300.1200, L3200.0500, L3300.0100, L501.2450, L3100.6900, L3400.0700, L500.4050, L501.4700, L3100.5440, L501.6710, L800.1280 ####[facility] [address] [place], [place], [phone] Creatinine [Mass/Vol] 0.50 mg/dL Low 0.55-1.02 [facility] Comment on above: Result Comment: The validity of the calculated GFR GFRAA in patients over70 years has not been determined. Clinical correlation isessential. Performed By: #### L 803.2200, L101.9900, L3410.2400, L3300.1200, L3200.0500, L3300.0100, L501.2450, L3100.6900, L3400.0700, L500.4050, L501.4700, L3100.5440, L501.6710, L800.1280 ####[facility] [address] [place], [place], [phone] EST GFR - AA 191 mL/min Normal >[address] [facility] Comment on above: Result Comment: Afri can Ukrainian GFR Calc Performed By: #### L 803.2200, L101.9900, L3410.2400, L3300.1200, L3200.0500, L3300.0100, L501.2450, L3100.6900, L3400.0700, L500.4050, L501.4700, L3100.5440, L501.6710, L800.1280 ####[facility] [address] [place], [place], [phone] GAP 9 Normal 5-[address] [facility] Comment on above: Performed By: #### L 803.2200, L101.9900, L3410.2400, L3300.1200, L3200.0500, L3300.0100, L501.2450, L3100.6900, L3400.0700, L500.4050, L501.4700, L3100.5440, L501.6710, L800.1280 ####[facility] [address] [place], [address] GFR/1.73 sq M.predicted among non-blacks MDRD (S/P/Bld) [Vol rate/Area] 157 mL/min/{1.73_m2} Normal >[address] [facility] Comment on above: Result Comment: Non- GFR Calc Performed By: #### L 803.2200, L101.9900, L3410.2400, L3300.1200, L3200.0500, L3300.0100, L501.2450, L3100.6900, L3400.0700, L500.4050, L501.4700, L3100.5440, L501.6710, L800.1280 ####[facility] [address] [place], [place], [phone] Globulin (S) [Mass/Vol] 4.8 g/dL High 2.2-4.2 [facility] Comment on above: Performed By: #### L 803.2200, L101.9900, L3410.2400, L3300.1200, L3200.0500, L3300.0100, L501.2450, L3100.6900, L3400.0700, L500.4050, L501.4700, L3100.5440, L501.6710, L800.1280 ####[facility] [address] [place], [place], [phone]) Glucose [Mass/Vol] 88 mg/dL Normal 74-106 [facility] Comment on above: Performed By: #### L 803.2200, L101.9900, L3410.2400, L3300.1200, L3200.0500, L3300.0100, L501.2450, L3100.6900, L3400.0700, L500.4050, L501.4700, L3100.5440, L501.6710, L800.1280 ####[facility] [address] [place], [place], [phone](455) Potassium [Moles/Vol] 3.8 mmol/L Normal 3.5-5.1 [facility] Comment on above: Performed By: #### L 803.2200, L101.9900, L3410.2400, L3300.1200, L3200.0500, L3300.0100, L501.2450, L3100.6900, L3400.0700, L500.4050, L501.4700, L3100.5440, L501.6710, L800.1280 ####[facility] [address] [place], [place], [phone]) Sodium [Moles/Vol] 137 mmol/L Normal 136-145 [facility] Comment on above: Performed By: #### L 803.2200, L101.9900, L3410.2400, L3300.1200, L3200.0500, L3300.0100, L501.2450, L3100.6900, L3400.0700, L500.4050, L501.4700, L3100.5440, L501.6710, L800.1280 ####[facility] [address] [place], [address] T PROT 7.9 g/dL Normal 6.4-8.[address] [facility] Comment on above: Performed By: #### L 803.2200, L101.9900, L3410.2400, L3300.1200, L3200.0500, L3300.0100, L501.2450, L3100.6900, L3400.0700, L500.4050, L501.4700, L3100.5440, L501.6710, L800.1280 ####[facility] [address] [place], [address] Urea nitrogen [Mass/Vol] 10 mg/dL Normal 7-[address] [facility] Comment on above: Performed By: #### L 803.2200, L101.9900, L3410.2400, L3300.1200, L3200.0500, L3300.0100, L501.2450, L3100.6900, L3400.0700, L500.4050, L501.4700, L3100.5440, L501.6710, L800.1280 ####[facility] [address] [place], [address] Erythrocyte Sed Rateon 11-10 SED RATE 28 mm/hr Normal 0-[address] [facility] Comment on above: Performed By: #### L 803.2200, L101.9900, L3410.2400, L3300.1200, L3200.0500, L3300.0100, L501.2450, L3100.6900, L3400.0700, L500.4050, L501.4700, L3100.5440, L501.6710, L800.1280 ####[facility] [address] [place], [place], [address] Gastroenterology Visit Repor ton 11-11-2023 Gastroenterology Visit Report Normal [facility] Lipaseon 11-11-2023 Lipase [Catalytic activity/Vol] 60 U/L Normal 13-[address] [facility] Comment on above: Result Comment: Kb seay note:LIPASE revised reference range effective 22.New Lipase methodology. Expected to produce lower valuesthan the previous assay method.NEW Reference Range: 13 - 75 U/L Performed By: #### L 803.2200, L101.9900, L3410.2400, L3300.1200, L3200.0500, L3300.0100, L501.2450, L3100.6900, L3400.0700, L500.4050, L501.4700, L3100.5440, L501.6710, L800.1280 ####[facility] [address] [place], [address] DANGELO BY IFA SCREEN [CCL]on Nuclear Ab IF (S) [Titer] Negative Normal Negative [facility] Comment on above: Result Comment: Anti -nuclear antibody test is used as an aid in diagnosis of systemic autoimmune diseases. Where positive and clinically warranted, follow-up using disease-specific testing is recommended. Low positive titers are not uncommon with advanced age, certain chronic infections, and malignancies among others. Test methodology: Indirect fluorescence immunoassay (IFA) using HEp-2 cells. [address] [place] [address] Kishore Mcdaniels III, M.D. [id number] Performed By: #### 2 17199 #### [facility],[address] [place], [place] [phone] HEPATITIS ACUTE PANEL [CCL]o n 11-10-2023 Hep B Core Ab, IgM Negative Normal Negative [facility] Comment on above: Result Comment: No e vidence of recent infection with Hepatitis B virus. Should recent infection be suspected, repeat testing may be considered 3-4 weeks after this draw. Performed By: #### 2 06760 #### [facility],[address] [place], [place] [address] Hepatitis A Ab IgM Negative Normal Negative [facility] Comment on above: Result Comment: No e vidence of recent infection with Hepatitis A virus. Performed By: #### 2 13836 #### [facility],[address] [place] [address] Hepatitis B Surf. Ag Negative Normal Negative [facility] Comment on above: Result Comment: [facility] [address] [id number] Kishore Mcdaniels III, M.D. [id number] Performed By: #### 2 66857 #### [facility],[address] [place] [address] Hepatitis C Ab IA Negative Normal Negative [facility] Comment on above: Result Comment: The result suggests no evidence of active infection with Hepatitis C virus. Should recent infection be suspected, repeat testing may be considered 4-6 weeks after this draw. Performed By: #### 2 48610 #### [facility],[address] [place] [address] [facility] Visit Reporton 11-10-2023 [facility] Visit Report Normal [facility] SICKLE CELL PREPARATION [CCL ]on 11-10-2023 Sickle Solub Normal Negative [facility] Comment on above: Result Comment: Nega tive Negative [facility] [address] [place] [address] [place] [address] eTx Contreras III, III, M.D. [id number] Performed By: #### 2 16482 #### [facility],[address] [place], [place] [id number] CBC + DIFFon 11-09-2023 ANISO 2+ Normal [facility] Comment on above: Performed By: #### 2 36872 #### [facility],[address] [place] [address] Baso # 0.02 x10EE3/UL Normal 0.00 - 0.10 [facility] Comment on above: Performed By: #### 2 99364 #### [facility],[address] [place] [address] 67238 Basophils/100 WBC (Bld) 0.4 % Normal 0.0 - 2.0 [facility] Comment on above: Performed By: #### 2 07512 #### [facility],[address] [place] [address] 94298 CBC + DIFF Normal [facility] Comment on above: Result Comment: CBC- COMPLETE BLOOD COUNT Performed By: #### 2 38651 #### [facility],[address] [place] [address] 67834 CELL COUNT 100 Normal [facility] Comment on above: Performed By: #### 2 02706 #### [facility],[address] [place] [address] 48402 EO 1.0 % Normal 0.0 - 7.0 [facility] Comment on above: Performed By: #### 2 53976 #### [facility],[address] [place] [address] 42934 EO # 0.03 x10EE3/UL Normal 0.00 - 0.50 [facility] Comment on above: Performed By: #### 2 22699 #### [facility],[address] [place] [address] 73346 Eosinophils/100 WBC (Bld) 0.5 % Normal 0.0 - 7.0 [facility] Comment on above: Performed By: #### 2 42903 #### [facility],[address] [place] [address] 59512 Erythrocyte distribution width (RBC) [Ratio] 20.7 % High 12.0 - 15.6 [facility] Comment on above: Performed By: #### 2 23127 #### [facility],[address] [place] [address] 48402 Hematocrit (Bld) [Volume fraction] 36.9 % Normal 34.0 - 46.0 [facility] Comment on above: Performed By: #### 2 59234 #### [facility],[address] [place] [address] 69932 Hemoglobin (Bld) [Mass/Vol] 12.0 g/dL Normal 12.0 - 16.0 [facility] Comment on above: Performed By: #### 2 23056 #### [facility],[address] [place] [address] 13089 Lymph # 3.44 x10EE3/UL High 0.80 - 2.80 [facility] Comment on above: Performed By: #### 2 81492 #### [facility],[address] [place] [address] 18390 Lymphocytes/100 WBC (Bld) 59.9 % High 20.0 - 45.0 [facility] Comment on above: Performed By: #### 2 41229 #### [facility],[address] [place] [address] 14982 Lymphocytes/100 WBC (Bld) 58 % High 20 - 45 [facility] Comment on above: Performed By: #### 2 69971 #### [facility],[address] [place] [address] 40630 MANUAL DIFF SEE BELOW Normal [facility] Comment on above: Performed By: #### 2 41877 #### [facility],[address] [place] [address] 97019 MCH (RBC) [Entitic mass] 23 pg Low 27 - 33 [facility] Comment on above: Performed By: #### 2 46831 #### [facility],[address] [place] [address] 90216 MCHC 32 X10 3 Normal 32 - 36 [facility] Comment on above: Performed By: #### 2 74538 #### [facility],[address] [place] [address] 27466 MCV (RBC) [Entitic vol] 72 fL Low 80 - 99 [facility] Comment on above: Performed By: #### 2 05534 #### [facility],[address] [place] [address] 79916 MICROCYTES 1+ Normal [facility] Comment on above: Performed By: #### 2 40392 #### [facility],[address] [place] [address] 02956 [place]th # 0.52 x10EE3/UL Normal 0.20 - 1.00 [facility] Comment on above: Performed By: #### 2 13961 #### [facility],[address] [place] [address] 05909 MONOS 10 % Normal 0 - 10 [facility] Comment on above: Performed By: #### 2 50045 #### [facility],[address] [place] [address] 02657 MONOS % 9.0 % Normal 0.0 - 10.0 [facility] Comment on above: Performed By: #### 2 68641 #### [facility],[address] [place] [address] 25350 Morphology Girish (Bld) [Interp] SEE BELOW Normal [facility] Comment on above: Performed By: #### 2 34311 #### [facility],[address] [place] [address] 10731 Neut # 1.74 x10EE3/UL Normal 1.50 - 7.10 [facility] Comment on above: Performed By: #### 2 17470 #### [facility],[address] [place] [address] 68830 Neutrophils/100 WBC (Bld) 30.2 % Low 46.0 - 76.0 [facility] Comment on above: Performed By: #### 2 70778 #### [facility],[address] [place] [address] 25477 PLATELET 279 x10EE3/UL Normal 150 - 450 [facility] Comment on above: Performed By: #### 2 19793 #### [facility],[address] [place] [address] 10671 Platelet mean volume (Bld) [Entitic vol] 8.8 fL Normal 6.6 - 10.5 [facility] Comment on above: Result Comment: AUTO MATED DIFFERENTIAL Performed By: #### 2 80560 #### [facility],[address] [place] [address] 05990 PLT EST NORMAL Normal [facility] Comment on above: Performed By: #### 2 35644 #### [facility],[address] [place] [address] RBC 5.15 x 10EE6/UL Normal 4.10 - 5.30 [facility] Comment on above: Performed By: #### 2 49746 #### [facility],[address] [place] [address] SEGS 31 % Low 46 - 76 [facility] Comment on above: Performed By: #### 2 32689 #### [facility],[address] [place], [place] [address] WBC 5.8 x 10EE3/UL Normal 4.5 - 10.8 [facility] Comment on above: Performed By: #### 2 80213 #### [facility],[address] [place] [address] Other FEW LARGE PLATELETS Normal [facility] Comment on above: Result Comment: 1+ C ODOCYTES Performed By: #### 2 18163 #### [facility],[address] [place] [address] 32233 CMP with eGFRon 11-09-2023 AGE 28 years Normal [facility] Comment on above: Performed By: #### 2 68271 #### [facility],[address] [place] [address] 93003 Albumin [Mass/Vol] 3.1 g/dL Low 3.4 - 5.0 [facility] Comment on above: Performed By: #### 2 26099 #### [facility],[address] [place] [address] 71192 Albumin/Globulin [Mass ratio] 0.6 {ratio} Low 0.9 - 1.6 [facility] Comment on above: Performed By: #### 2 02891 #### [facility],[address] [place] [address] 18384 ALK PHOS 483 U/L High 46 - 116 [facility] Comment on above: Performed By: #### 2 55144 #### [facility],[address] [place] [address] 38418 ALT [Catalytic activity/Vol] 128 U/L High 16 - 63 [facility] Comment on above: Performed By: #### 2 54785 #### [facility],[address] [place] [address] 61369 Anion gap [Moles/Vol] 14 mmol/L Normal 10 - 20 [facility] Comment on above: Performed By: #### 2 36601 #### [facility],[address] [place] [address] 74867 AST [Catalytic activity/Vol] 199 U/L High 13 - 39 [facility] Comment on above: Performed By: #### 2 21649 #### [facility],[address] [place] [address] 24862 B/C RATIO 10 ratio Normal 0 - 30 [facility] Comment on above: Performed By: #### 2 45644 #### [facility],[address] [place] [address] 22948 Bilirubin [Mass/Vol] 3.4 mg/dL High 0.2 - 1.0 [facility] Comment on above: Performed By: #### 2 29944 #### [facility],[address] [place] [address] 74192 Calcium [Mass/Vol] 8.8 mg/dL Normal 8.5 - 10.1 [facility] Comment on above: Performed By: #### 2 17493 #### [facility],[address] [place], [place] [address] Chloride [Moles/Vol] 101 mmol/L Normal 98 - 107 [facility] Comment on above: Performed By: #### 2 83587 #### [facility],[address] [place] [address] 14805 CMP with eGFR Normal [facility] Comment on above: Result Comment: COMP REHENSIVE METABOLIC PANEL Performed By: #### 2 32742 #### [facility],[address] [place], [place] [address] CO2 [Moles/Vol] 28.5 mmol/L Normal 21.0 - 32.0 [facility] Comment on above: Performed By: #### 2 09800 #### [facility],[address] [place], [place] [address] Creatinine [Mass/Vol] 0.68 mg/dL Normal 0.55 - 1.02 [facility] Comment on above: Performed By: #### 2 59208 #### [facility],[address] [place] [address] 64109 GFR/1.73 sq M.predicted among non-blacks MDRD (S/P/Bld) [Vol rate/Area] mL/min/{1.73_m2} Normal 60 - 999 [facility] Comment on above: Performed By: #### 2 02255 #### [facility],[address] [place] [address] Result Comment: ACCO RDING TO THE NATIONAL KIDNEY DISEASE EDUCATION PROGRAM(NKDE), A NORMAL eGFR IS A VALUE GREATER THAN OR EQUAL TO 60 ML/MIN/1.73 SQ METERS. CHRONIC KIDNEY DISEASE: <60mL/MIN/1.73 SQ METERS KIDNEY FAILURE: <15mL/MIN/1.73 SQ METERS THIS TEST SHOULD ONLY BE USED FOR PATIENTS 18 YEARS OF AGE AND OLDER. Globulin (S) [Mass/Vol] 5.2 g/dL High 1.5 - 3.8 [facility] Comment on above: Performed By: #### 2 99742 #### [facility],[address] [place] [address] 75944 Glucose [Mass/Vol] 80 mg/dL Normal 74 - 106 [facility] Comment on above: Performed By: #### 2 06583 #### [facility],[address] [place] [address] 25049 Potassium [Moles/Vol] 4.0 mmol/L Normal 3.5 - 5.1 [facility] Comment on above: Performed By: #### 2 18123 #### [facility],[address] [place] [address] 94782 Protein [Mass/Vol] 8.3 g/dL High 6.4 - 8.2 [facility] Comment on above: Performed By: #### 2 78000 #### [facility],[address] [place] [address] 23762 Sodium [Moles/Vol] 139 mmol/L Normal 136 - 145 [facility] Comment on above: Performed By: #### 2 65265 #### [facility],[address] [place] [address] 41421 Urea nitrogen [Mass/Vol] 7 mg/dL Normal 7 - 18 [facility] Comment on above: Performed By: #### 2 39900 #### [facility],[address] [place] [address] 63719 GAMMA GTon 11-09-2023 Gamma glutamyl transferase [Catalytic activity/Vol] 431 U/L High 5 - 55 [facility] Comment on above: Performed By: #### 2 89956 #### [facility],[address] [place] [address] 81032 IRON AND TIBCon 11-09-2023 %SATURATION 16 % Normal [facility] Comment on above: Performed By: #### 2 43742 #### [facility],[address] [place] [address] 29418 Iron [Mass/Vol] 55 ug/dL Normal 50 - 170 [facility] Comment on above: Performed By: #### 2 29807 #### [facility],[address] [place] [address] 99448 TIBC 336 ug/dl Normal 250 - 450 [facility] Comment on above: Performed By: #### 2 12337 #### [facility],[address] [place] [address] 94109 UIBC 281 ug/dL Normal 155 - 355 [facility] Comment on above: Performed By: #### 2 31136 #### [facility],[address] [place] [address] 35037 LIPID PROFILEon 11-09-2023 Cholesterol [Mass/Vol] 336 mg/dL High 0 - 240 [facility] Comment on above: Performed By: #### 2 89876 #### [facility],[address] [place] [address] 93624 Cholesterol in HDL [Mass/Vol] 27 mg/dL Low 40 - 60 [facility] Comment on above: Performed By: #### 2 89123 #### [facility],[address] [place] [address] 43383 Cholesterol in LDL [Mass/Vol] 273 mg/dL High 0 - 129 [facility] Comment on above: Performed By: #### 2 97672 #### [facility],[address] [place] [address] 18451 Cholesterol.total/Gerardo sterol in HDL [Mass ratio] 12.4 {ratio} High 0.0 - 5.0 [facility] Comment on above: Performed By: #### 2 66983 #### [facility],[address] [place] [address] 66769 Lipid 1996 panel Normal [facility] Comment on above: Result Comment: LIPI D PROFILE Performed By: #### 2 44680 #### [facility],[address] [place] [address] 09393 Triglyceride [Mass/Vol] 179 mg/dL High 0 - 150 [facility] Comment on above: Performed By: #### 2 71310 #### [facility],[address] [address] CBC W Auto Differential pane l (Bld)Ordered By: Mariama Whitten on 11-02-2023 Erythrocyte distribution width (RBC) [Ratio] 19.6 % High 11.5 - 15.0 % [facility] Hematocrit (Bld) [Volume fraction] 33.2 % Low 35.0 - 47.0 % [facility] Hemoglobin (Bld) [Mass/Vol] 10.7 g/dL Low 11.7 - 16.0 g/dL [facility] Interpretation and review of laboratory results Abnormal [facility] IPF 4 [facility] MCH (RBC) [Entitic mass] 22.2 pg Low 26.0 - 34.0 pg [facility] MCHC (RBC) [Mass/Vol] 32.2 % 30.5 - 36.0 % [facility] MCV (RBC) [Entitic vol] 69.0 fL Low 77.0 - 99.0 fL [facility] Platelet mean volume (Bld) [Entitic vol] 10.7 fL 9.0 - 12.7 fL [facility] Platelets (Bld) [#/Vol] 197 10*3/uL 140 - 440 10*3/uL [facility] RBC (Bld) [#/Vol] 4.81 10*6/uL 3.80 - 5.2 0 10*6/uL [facility] WBC (Bld) [#/Vol] 8.0 10*3/uL 3.6 - 10.7 10*3/uL [facility] Comprehensive metabolic 1998 panelon 11-02-2023 Albumin [Mass/Vol] 2.8 g/dL Low 3.5 - 5.0 g/dL [facility] ALP [Catalytic activity/Vol] 609 U/L High 38 - 126 U/L [facility] ALT [Catalytic activity/Vol] 195 U/L High 0 - 34 U/L [facility] Anion gap [Moles/Vol] 6 mmol/L 3 - 13 mmol/L [facility] AST [Catalytic activity/Vol] 347 U/L High 15 - 46 U/L [facility] Bilirubin [Mass/Vol] 5.0 mg/dL High 0.2 - 1 .3 mg/dL [facility] Calcium [Mass/Vol] 8.1 mg/dL Low 8.4 - 10. 4 mg/dL [facility] Chloride [Moles/Vol] 100 mmol/L 98 - 10 7 mmol/L [facility] CO2 [Moles/Vol] 29 mmol/L 22 - 30 mmol/L [facility] Creatinine [Mass/Vol] 0.54 mg/dL 0.52 - 1.04 mg/dL [facility] GFR/1.73 sq M.predicted (S/P/Bld) [Vol rate/Area] - PINF [facility] Comment on above: Calculation based on the Chronic Kidney Disease Epidemiology Collaboration (CKD-EPI) equation refit without adjustment for race Glucose [Mass/Vol] 84 mg/dL 70 - 100 mg/dL [facility] Interpretation and review of laboratory results Abnormal [facility] Potassium [Moles/Vol] 3.9 mmol/L 3.5 - 5.1 mmol/L [facility] Protein [Mass/Vol] 6.6 g/dL 6.3 - 8.2 g/dL [facility] Sodium [Moles/Vol] 134 mmol/L Low 135 - 145 mmol/L [facility] Urea nitrogen [Mass/Vol] 3 mg/dL Low 7 - 17 mg/dL [facility] Laboratory - Microbiology an d Antimicrobial susceptibilityon 11-02-2023 CMV IgG IA Qn >10.00 High NINF - 0.70 U/mL [facility] Comment on above: INTERPRETIVE INFORMA TION: [...] 73.9 AU/mL High NINF - 29.9 AU/mL [facility] Comment on above: INTERPRETIVE INFORMA TION: [...] Cellular and Tissue-Based Products (HCT/P). Performed By: [employer] [address] [place] [address] Livestock Buyer: Liborio Martinez MD, PhD CLIA Number: [id number] Laboratory - Serology - non- microon 11-02-2023 Liver kidney microsomal 1 IgG IA Qn (S) 1.9 U 0.0 - 24.9 U [facility] Comment on above: REFERENCE INTERVAL: Liver-Kidney [...] of autoimmune hepatitis, type 2. Performed By: [employer] [address] [place] [id number] Livestock Buyer: Liborio Martinez MD, PhD CLIA Number: [id number] Manual differential performe d Ql (Bld)on 11-02-2023 Anisocytosis Ql (Bld) Slight Abnormal (none) [facility] Atypical Lymphocytes Manual 6 [facility] Band form neutrophils (Bld) [#/Vol] 0.4 10*3/uL High NINF - 0.0 10*3/uL [facility] Band form neutrophils/100 WBC (Bld) 5 % High NINF - 0 % [facility] Bands Manual 5 [facility] Cells Counted Total (Bld) [#] 100 {cells} [facility] Differential Method Manual differential performed [facility] Hypochromia Ql (Bld) Slight Abnormal (none) [facility] Interpretation and review of laboratory results Abnormal [facility] Lymphocytes (Bld) [#/Vol] 5.3 10*3/uL High 1.0 - 4.3 10*3/uL [facility] Lymphocytes Manual 66 [facility] Lymphocytes/100 WBC (Bld) 66 % High 15 - 45 % [facility] Metamyelocytes (Bld) [#/Vol] 0.1 10*3/uL High NINF - 0.0 10*3/uL [facility] Metamyelocytes Manual 1 [facility] Metamyelocytes/100 WBC (Bld) 1 % High NINF - 0 % [facility] Microcytes Ql (Bld) Moderate Abnormal (none) [facility] Monocytes (Bld) [#/Vol] 0.5 10*3/uL 0.0 - 0.9 10*3/uL [facility] Monocytes Manual 6 [facility]th Monocytes/100 WBC (Bld) 6 % 5 - 13 % [facility] Neutrophils (Bld) [#/Vol] 1.7 10*3/uL Low 1.8 - 7.5 10*3/uL [facility] Neutrophils Manual 16 [facility] Ovalocytes LM Ql (Bld) Slight Abnormal (none) [facility] Platelet morphology finding Nom (Bld) Normal [facility] Poikilocytosis LM Ql (Bld) Slight Abnormal (none) [facility] Segmented neutrophils/100 WBC (Bld) 16 % Low 38 - 82 % [facility] Smudge cells/100 WBC (Bld) Present Abnormal (none) per 100 WBCs [facility] Comment on above: Albumin slide read. Target cells LM Ql (Bld) Slight Abnormal (none) [facility] Variant lymphocytes (Bld) [#/Vol] 0.5 10*3/uL High NINF - 0.0 10*3/uL [facility] Variant lymphocytes/100 WBC (Bld) 6 % High NINF - 0 % [facility] WBC corrected for nucl RBC (Bld) [#/Vol] 8.0 10*3/uL 3.6 - 10.7 10*3/uL [facility] No Panel Informationon 11-01 [facility] Interpretation and review of laboratory results Abnormal [facility] Thyroid stimulating immunogl obulins actual/normal (S) [Relative mass conc]on 11-02-2023 IgG subclass 1 (S) [Mass/Vol] 1387 mg/dL High 240 - 1118 mg/dL [facility] Comment on above: REFERENCE INTERVAL: Immunoglobulin G Subclass 1 The total IgG (mg/dL) can be derived from the sum of the subclass IgG1, IgG2, IgG3, and IgG4 values. However, a confirmatory and more precise total IgG is available by the turbidimetric method of quantitation for total IgG. Refer to test Immunoglobulin G, Serum ([id number]). Access complete set of age- and/or gender-specific reference intervals for this test in the [facility] ([employer]). IgG subclass 2 (S) [Mass/Vol] 281 mg/dL 124 - 549 mg/dL [facility] Comment on above: REFERENCE INTERVAL: Immunoglobulin G Subclass 2 Access complete set of age- and/or gender-specific reference intervals for this test in the [facility] ([employer]). IgG subclass 3 (S) [Mass/Vol] mg/dL High 21 - 134 mg/dL [facility] Comment on above: REFERENCE INTERVAL: Immunoglobulin G Subclass 3 Access complete set of age- and/or gender-specific reference intervals for this test in the [facility] ([employer]). IgG subclass 4 (S) [Mass/Vol] 73 mg/dL 1 - 123 mg/dL [facility] Comment on above: REFERENCE INTERVAL: Immunoglobulin G Subclass 4 Access complete set of age- and/or gender-specific reference intervals for this test in the [facility] ([employer]). Performed By: [employer] [address] [place] [id number] Livestock Buyer: Liborio Martinez MD, PhD CLIA Number: [id number] Interpretation and review of laboratory results Abnormal [facility] CBC W Auto Differential pane l (Bld)on 11-01-2023 Erythrocyte distribution width (RBC) [Ratio] 18.6 % High 11.5 - 15.0 % [facility] Hematocrit (Bld) [Volume fraction] 30.2 % Low 35.0 - 47.0 % [facility] Hemoglobin (Bld) [Mass/Vol] 9.8 g/dL Low 11.7 - 16.0 g/dL [facility] Interpretation and review of laboratory results Abnormal [facility] IPF 5 [facility] MCH (RBC) [Entitic mass] 22.3 pg Low 26.0 - 34.0 pg [facility] MCHC (RBC) [Mass/Vol] 32.5 % 30.5 - 36.0 % [facility] MCV (RBC) [Entitic vol] 68.6 fL Low 77.0 - 99.0 fL [facility] Platelet mean volume (Bld) [Entitic vol] 10.8 fL 9.0 - 12.7 fL [facility] Platelets (Bld) [#/Vol] 191 10*3/uL 140 - 440 10*3/uL [facility] RBC (Bld) [#/Vol] 4.40 10*6/uL 3.80 - 5.2 0 10*6/uL [facility] WBC (Bld) [#/Vol] 8.7 10*3/uL 3.6 - 10.7 10*3/uL [facility] Comprehensive metabolic 1998 panelon 11-01-2023 Albumin [Mass/Vol] 2.6 g/dL Low 3.5 - 5.0 g/dL [facility] ALP [Catalytic activity/Vol] 557 U/L High 38 - 126 U/L [facility] ALT [Catalytic activity/Vol] 193 U/L High 0 - 34 U/L [facility] Anion gap [Moles/Vol] 5 mmol/L 3 - 13 mmol/L [facility] AST [Catalytic activity/Vol] 361 U/L High 15 - 46 U/L [facility] Bilirubin [Mass/Vol] 5.0 mg/dL High 0.2 - 1 .3 mg/dL [facility] Calcium [Mass/Vol] 7.8 mg/dL Low 8.4 - 10. 4 mg/dL [facility] Chloride [Moles/Vol] 100 mmol/L 98 - 10 7 mmol/L [facility] CO2 [Moles/Vol] 26 mmol/L 22 - 30 mmol/L [facility] Creatinine [Mass/Vol] 0.47 mg/dL Low 0.52 - 1.04 mg/dL [facility] GFR/1.73 sq M.predicted (S/P/Bld) [Vol rate/Area] - PINF [facility] Comment on above: Calculation based on the Chronic Kidney Disease Epidemiology Collaboration (CKD-EPI) equation refit without adjustment for race Glucose [Mass/Vol] 76 mg/dL 70 - 100 mg/dL [facility] Interpretation and review of laboratory results Abnormal [facility] Potassium [Moles/Vol] 3.4 mmol/L Low 3.5 - 5.1 mmol/L [facility] Protein [Mass/Vol] 6.2 g/dL Low 6.3 - 8.2 g/dL [facility] Sodium [Moles/Vol] 132 mmol/L Low 135 - 145 mmol/L [facility] Urea nitrogen [Mass/Vol] 3 mg/dL Low 7 - 17 mg/dL [facility] Laboratory - Chemistry and C hemistry - challengeon 11-01-2023 Ceruloplasmin [Mass/Vol] 25 mg/dL 16 - 45 mg/dL [facility] Comment on above: REFERENCE INTERVAL: Ceruloplasmin Access complete set of age- and/or gender-specific reference intervals for this test in the [facility] ([employer]). Performed By: [employer] [address] [place] [id number] Livestock Buyer: Liborio Martinez MD, PhD CLIA Number: [id number] Laboratory - Coagulationon 0 11-01-2023 PT Coag (Bld) [Time] 13.5 s High 9.0 - 12.0 s [facility] Laboratory - Microbiology an d Antimicrobial susceptibilityon 11-01-2023 HBV core Ab IA Ql Negative Negative [facility] Comment on above: INTERPRETIVE INFORMA TION: Hepatitis B Core Ab (Total) This assay should not be used for blood donor screening, associated re-entry protocols, or for screening Human Cells, Tissues and Cellular and Tissue-Based Products (HCT/P). Performed By: [employer] [address] [place] [address] Livestock Buyer: Liborio Martinez MD, PhD CLIA Number: [id number] Laboratory - Serology - non- microon 11-01-2023 Mitochondria M2 IgG Qn (S) 10.4 [facility] Comment on above: REFERENCE INTERVAL: Mitochondrial [...] does not rule out PBC. Performed By: [employer] [address] [place] [id number] Livestock Buyer: Liborio Martinez MD, PhD CLIA Number: [id number] Manual differential performe d Ql (Bld)on 11-01-2023 Anisocytosis Ql (Bld) Slight Abnormal (none) [facility] Atypical Lymphocytes Manual 3 [facility] Cells Counted Total (Bld) [#] 100 {cells} [facility] Differential Method Manual differential performed [facility] Interpretation and review of laboratory results Abnormal [facility] Lymphocytes (Bld) [#/Vol] 5.9 10*3/uL High 1.0 - 4.3 10*3/uL [facility] Lymphocytes Manual 68 [facility] Lymphocytes/100 WBC (Bld) 68 % High 15 - 45 % [facility] Microcytes Ql (Bld) Slight Abnormal (none) [facility] Monocytes (Bld) [#/Vol] 0.4 10*3/uL 0.0 - 0.9 10*3/uL [facility] Monocytes Manual 5 [facility]th Monocytes/100 WBC (Bld) 5 % 5 - 13 % S [facility] Myelocytes (Bld) [#/Vol] 0.2 10*3/uL High NINF - 0.0 10*3/uL [facility] Myelocytes Manual 2 [facility] Myelocytes/100 WBC (Bld) 2 % High NINF - 0 % [facility] Neutrophils (Bld) [#/Vol] 1.9 10*3/uL 1.8 - 7.0 10*3/uL [facility] Neutrophils Manual 22 [facility] Platelet morphology finding Nom (Bld) Normal [facility] Poikilocytosis LM Ql (Bld) Slight Abnormal (none) [facility] Segmented neutrophils/100 WBC (Bld) 22 % Low 38 - 82 % [facility] Smudge cells/100 WBC (Bld) Present Abnormal (none) per 100 WBCs [facility] Target cells LM Ql (Bld) Slight Abnormal (none) [facility] Variant lymphocytes (Bld) [#/Vol] 0.3 10*3/uL High NINF - 0.0 10*3/uL [facility] Variant lymphocytes/100 WBC (Bld) 3 % High NINF - 0 % [facility] WBC corrected for nucl RBC (Bld) [#/Vol] 8.7 10*3/uL 3.6 - 10.7 10*3/uL [facility] Differential perform ed on albumin slide. [employer] No Panel Informationon 10-31 Patient Name: ANNE [...] Electronically Signed Date/Time: 11/01/2023 4:15 PM T [facility] Jaswinder Hyde MD - 11/01/2023 [...] Electronically Signed Date/Time: 11/01/2023 4:15 PM EDT [facility] Radiology Study observation (narrative) [facility] No Panel InformationOrdered By: Jaswinder Hyde on 11-01-2023 [facility] Work Phone: No Panel InformationOrdered By: Zain Oakley on 11-01-2023 EBV EARLY ANTIGEN IgG 0.5 [facility] EBV NUCLEAR ANTIGEN IGG [facility] EBV VIRAL CAPSID ANTIGEN IGG 0.6 [facility] EBV VIRAL CAPSID ANTIGEN IGM 2.3 High [facility] Interpretation and review of laboratory results Abnormal [facility] Interpretive Information: Results of 1.1 AI or greater = POSITIVE Results of 0.9 AI - 1.0 Debra = EQUIVOCAL Results of 0.8 AI or less = NEGATIVE This is a qualitative test. The numeric antibody index reported does not correspond to antibody concentrations. [facility] PT Coag (Bld) [Time]on 10-31 INR Coag (PPP) [Relative time] 1.2 {INR} High 0.9 - 1.1 [facility] Comment on above: Recommended Anticoag ulant [...] Interpretation and review of laboratory results Abnormal [facility] CBC W Auto Differential pane l (Bld)Ordered By: Keshawn Carranza on 10-31-2023 Erythrocyte distribution width (RBC) [Ratio] 18.9 % High 11.5 - 15.0 % [facility] Hematocrit (Bld) [Volume fraction] 33.8 % Low 35.0 - 47.0 % [facility] Hemoglobin (Bld) [Mass/Vol] 10.8 g/dL Low 11.7 - 16.0 g/dL [facility] Interpretation and review of laboratory results Abnormal [facility] IPF 4 [facility] MCH (RBC) [Entitic mass] 22.6 pg Low 26.0 - 34.0 pg [facility] MCHC (RBC) [Mass/Vol] 32.0 % 30.5 - 36.0 % [facility] MCV (RBC) [Entitic vol] 70.7 fL Low 77.0 - 99.0 fL [facility] Platelet mean volume (Bld) [Entitic vol] [facility] Comment on above: Unable to calculate. Platelets (Bld) [#/Vol] 185 10*3/uL 140 - 440 10*3/uL [facility] RBC (Bld) [#/Vol] 4.78 10*6/uL 3.80 - 5.2 0 10*6/uL [facility] WBC (Bld) [#/Vol] 7.5 10*3/uL 3.6 - 10.7 10*3/uL [facility] Comprehensive metabolic 1998 panelon 10-31-2023 Albumin [Mass/Vol] 2.9 g/dL Low 3.5 - 5.0 g/dL [facility] ALP [Catalytic activity/Vol] 646 U/L High 38 - 126 U/L [facility] ALT [Catalytic activity/Vol] 233 U/L High 0 - 34 U/L [facility] Anion gap [Moles/Vol] 7 mmol/L 3 - 13 mmol/L [facility] AST [Catalytic activity/Vol] 449 U/L High 15 - 46 U/L [facility] Bilirubin [Mass/Vol] 5.2 mg/dL High 0.2 - 1 .3 mg/dL [facility] Calcium [Mass/Vol] 8.4 mg/dL 8.4 - 10. 4 mg/dL [facility] Chloride [Moles/Vol] 100 mmol/L 98 - 10 7 mmol/L [facility] CO2 [Moles/Vol] 26 mmol/L 22 - 30 mmol/L [facility] Creatinine [Mass/Vol] 0.54 mg/dL 0.52 - 1.04 mg/dL [facility] GFR/1.73 sq M.predicted (S/P/Bld) [Vol rate/Area] - PINF [facility] Comment on above: Calculation based on the Chronic Kidney Disease Epidemiology Collaboration (CKD-EPI) equation refit without adjustment for race Glucose [Mass/Vol] 76 mg/dL 70 - 100 mg/dL [facility] Interpretation and review of laboratory results Abnormal [facility] Potassium [Moles/Vol] 3.7 mmol/L 3.5 - 5.1 mmol/L [facility] Protein [Mass/Vol] 6.6 g/dL 6.3 - 8.2 g/dL [facility] Sodium [Moles/Vol] 133 mmol/L Low 135 - 145 mmol/L [facility] Urea nitrogen [Mass/Vol] 2 mg/dL Low 7 - 17 mg/dL [facility] Laboratory - Chemistry and C hemistry - challengeon 10-31-2023 Alpha 1 antitrypsin [Mass/Vol] 169 mg/dL 90 - 200 mg/dL [facility] Comment on above: To convert to umol/L , multiply mg/dL by 0.185 Performed By: [employer] [address] [place] [address] Livestock Buyer: Liborio Martinez MD, PhD CLIA Number: [id number] MR Abdomen WO contraston Patient Name: ANNE [...] or esophageal varices. Visualized Osseous structures: Normal [facility] Karlene Acosta M D - 10/31/2023 Patient Name: ANNE MARIE PETERSON : 1995 Exam Date/Time: 10/29/2023 19:34 Procedure: [...] Electronically Signed Date/Time: 10/31/2023 5:31 PM EDT [facility] MR Abdomen WO contrastOrdere d By: Karlene Acosta on 10-31-2023 [facility] Work Phone: Manual differential performe d Ql (Bld)on 10-31-2023 Anisocytosis Ql (Bld) Slight Abnormal (none) [facility] Atypical Lymphocytes Manual 4 [facility] Band form neutrophils (Bld) [#/Vol] 0.8 10*3/uL High NINF - 0.0 10*3/uL [facility] Band form neutrophils/100 WBC (Bld) 11 % High NINF - 0 % [facility] Bands Manual 11 [facility] Cells Counted Total (Bld) [#] 100 {cells} [facility] Differential Method Manual differential performed [facility] Interpretation and review of laboratory results Abnormal [facility] Lymphocytes (Bld) [#/Vol] 3.9 10*3/uL 1.0 - 4.3 10*3/uL [facility] Lymphocytes Manual 52 [facility] Lymphocytes/100 WBC (Bld) 52 % High 15 - 45 % [facility] Metamyelocytes (Bld) [#/Vol] 0.1 10*3/uL High NINF - 0.0 10*3/uL [facility] Metamyelocytes Manual 1 [facility] Metamyelocytes/100 WBC (Bld) 1 % High NINF - 0 % [facility] Microcytes Ql (Bld) Slight Abnormal (none) [facility] Monocytes (Bld) [#/Vol] 0.9 10*3/uL 0.0 - 0.9 10*3/uL [facility] Monocytes Manual 12 [facility]th Monocytes/100 WBC (Bld) 12 % 5 - 13 % [facility] Neutrophils (Bld) [#/Vol] 2.3 10*3/uL 1.8 - 7.5 10*3/uL [facility] Neutrophils Manual 20 [facility] Ovalocytes LM Ql (Bld) Slight Abnormal (none) [facility] Platelet morphology finding Nom (Bld) Normal [facility] Poikilocytosis LM Ql (Bld) Slight Abnormal (none) [facility] Segmented neutrophils/100 WBC (Bld) 20 % Low 38 - 82 % [facility] Smudge cells/100 WBC (Bld) Present Abnormal (none) per 100 WBCs [facility] Target cells LM Ql (Bld) Slight Abnormal (none) [facility] Variant lymphocytes (Bld) [#/Vol] 0.3 10*3/uL High NINF - 0.0 10*3/uL [facility] Variant lymphocytes/100 WBC (Bld) 4 % High NINF - 0 % [facility] WBC corrected for nucl RBC (Bld) [#/Vol] 7.5 10*3/uL 3.6 - 10.7 10*3/uL [facility] Differential perform ed on albumin slide [facility] No Panel Informationon 10-30 [facility] CBC W Auto Differential pane l (Bld)Ordered By: [place] on 10-30-2023 Erythrocyte distribution width (RBC) [Ratio] 18.2 % High 11.5 - 15.0 % [facility] Hematocrit (Bld) [Volume fraction] 33.6 % Low 35.0 - 47.0 % [facility] Hemoglobin (Bld) [Mass/Vol] 10.9 g/dL Low 11.7 - 16.0 g/dL [facility] Interpretation and review of laboratory results Abnormal [facility] IPF 4 [facility] MCH (RBC) [Entitic mass] 22.9 pg Low 26.0 - 34.0 pg [facility] MCHC (RBC) [Mass/Vol] 32.4 % 30.5 - 36.0 % [facility] MCV (RBC) [Entitic vol] 70.4 fL Low 77.0 - 99.0 fL [facility] Platelet mean volume (Bld) [Entitic vol] [facility] Comment on above: Unable to calculate Platelets (Bld) [#/Vol] 180 10*3/uL 140 - 440 10*3/uL [facility] RBC (Bld) [#/Vol] 4.77 10*6/uL 3.80 - 5.2 0 10*6/uL [facility] WBC (Bld) [#/Vol] 7.9 10*3/uL 3.6 - 10.7 10*3/uL [facility] Comprehensive metabolic 1998 panelon 10-30-2023 Albumin [Mass/Vol] 3.1 g/dL Low 3.5 - 5.0 g/dL [facility] ALP [Catalytic activity/Vol] 670 U/L High 38 - 126 U/L [facility] ALT [Catalytic activity/Vol] 240 U/L High 0 - 34 U/L [facility] Anion gap [Moles/Vol] 12 mmol/L 3 - 13 mmol/L [facility] AST [Catalytic activity/Vol] 411 U/L High 15 - 46 U/L [facility] Bilirubin [Mass/Vol] 4.3 mg/dL High 0.2 - 1 .3 mg/dL [facility] Calcium [Mass/Vol] 8.2 mg/dL Low 8.4 - 10. 4 mg/dL [facility] Chloride [Moles/Vol] 102 mmol/L 98 - 10 7 mmol/L [facility] CO2 [Moles/Vol] 23 mmol/L 22 - 30 mmol/L [facility] Creatinine [Mass/Vol] 0.55 mg/dL 0.52 - 1.04 mg/dL [facility] GFR/1.73 sq M.predicted (S/P/Bld) [Vol rate/Area] - PINF [facility] Comment on above: Calculation based on the Chronic Kidney Disease Epidemiology Collaboration (CKD-EPI) equation refit without adjustment for race Glucose [Mass/Vol] 71 mg/dL 70 - 100 mg/dL [facility] Interpretation and review of laboratory results Abnormal [facility] Potassium [Moles/Vol] 3.5 mmol/L 3.5 - 5.1 mmol/L [facility] Protein [Mass/Vol] 7.0 g/dL 6.3 - 8.2 g/dL [facility] Sodium [Moles/Vol] 136 mmol/L 135 - 145 mmol/L [facility] Urea nitrogen [Mass/Vol] 4 mg/dL Low 7 - 17 mg/dL [facility] IgG [Mass/Vol]on 10-30-2023 Interpretation and review of laboratory results Abnormal [facility] Laboratory - Chemistry and C hemistry - challengeon 10-30-2023 IgG [Mass/Vol] 2182.1 mg/dL High 700.0 - 1600.0 mg/dL [facility] IgM [Mass/Vol] 222.4 mg/dL 40.0 - 230.0 mg/dL [facility] Manual differential performe d Ql (Bld)Ordered By: Dia Sam on 10-30-2023 Anisocytosis Ql (Bld) Slight Abnormal (none) [facility] Band form neutrophils (Bld) [#/Vol] 0.4 10*3/uL High NINF - 0.0 10*3/uL [facility] Band form neutrophils/100 WBC (Bld) 5 % High NINF - 0 % [facility] Bands Manual 5 [facility] Cells Counted Total (Bld) [#] 100 {cells} [facility] Interpretation and review of laboratory results Abnormal [facility] Leukocyte morphology finding Nom (Bld) Normal [facility] Lymphocytes (Bld) [#/Vol] 5.0 10*3/uL High 1.0 - 4.3 10*3/uL [facility] Lymphocytes Manual 63 [facility] Lymphocytes/100 WBC (Bld) 63 % High 15 - 45 % [facility] Macrocytes Ql (Bld) Rare Abnormal (none) [facility] Microcytes Ql (Bld) Slight Abnormal (none) [facility] Monocytes (Bld) [#/Vol] 0.7 10*3/uL 0.0 - 0.9 10*3/uL [facility] Monocytes Manual 9 [facility] Monocytes/100 WBC (Bld) 9 % 5 - 13 % [facility] Neutrophils (Bld) [#/Vol] 2.2 10*3/uL 1.8 - 7.5 10*3/uL [facility] Neutrophils Manual 23 [facility] Ovalocytes LM Ql (Bld) Slight Abnormal (none) [facility] Platelet morphology finding Nom (Bld) Normal [facility] Poikilocytosis LM Ql (Bld) Slight Abnormal (none) [facility] Polychromasia LM Ql (Bld) Slight Abnormal (none) [facility] Segmented neutrophils/100 WBC (Bld) 23 % Low 38 - 82 % [facility] Target cells LM Ql (Bld) Slight Abnormal (none) [facility] WBC corrected for nucl RBC (Bld) [#/Vol] 7.9 10*3/uL 3.6 - 10.7 10*3/uL [facility] Differential perform ed on albumin slide. [facility] No Panel Informationon 10-29 Interpretation and review of laboratory results Normal [facility] CBC W Auto Differential pane l (Bld)Ordered By: Sushant Barker on 10-29-2023 Erythrocyte distribution width (RBC) [Ratio] 18.3 % High 11.5 - 15.0 % [facility] Hematocrit (Bld) [Volume fraction] 34.0 % Low 35.0 - 47.0 % [facility] Hemoglobin (Bld) [Mass/Vol] 11.0 g/dL Low 11.7 - 16.0 g/dL [facility] Interpretation and review of laboratory results Abnormal [facility] IPF 5 [facility] MCH (RBC) [Entitic mass] 22.6 pg Low 26.0 - 34.0 pg [facility] MCHC (RBC) [Mass/Vol] 32.4 % 30.5 - 36.0 % [facility] MCV (RBC) [Entitic vol] 69.8 fL Low 77.0 - 99.0 fL [facility] Platelet mean volume (Bld) [Entitic vol] [facility] Comment on above: Unable to calculate result. Platelets (Bld) [#/Vol] 153 10*3/uL 140 - 440 10*3/uL [facility] RBC (Bld) [#/Vol] 4.87 10*6/uL 3.80 - 5.2 0 10*6/uL [facility] WBC (Bld) [#/Vol] 7.5 10*3/uL 3.6 - 10.7 10*3/uL [facility] Cobalamin (Vitamin B12) [Mas s/Vol]on 10-29-2023 Interpretation and review of laboratory results Normal [facility] Comprehensive metabolic 1998 panelon 10-29-2023 Albumin [Mass/Vol] 2.8 g/dL Low 3.5 - 5.0 g/dL [facility] ALP [Catalytic activity/Vol] 597 U/L High 38 - 126 U/L [facility] ALT [Catalytic activity/Vol] 229 U/L High 0 - 34 U/L [facility] Anion gap [Moles/Vol] 10 mmol/L 3 - 13 mmol/L [facility] AST [Catalytic activity/Vol] 377 U/L High 15 - 46 U/L [facility] Bilirubin [Mass/Vol] 3.6 mg/dL High 0.2 - 1 .3 mg/dL [facility] Calcium [Mass/Vol] 8.2 mg/dL Low 8.4 - 10. 4 mg/dL [facility] Chloride [Moles/Vol] 101 mmol/L 98 - 10 7 mmol/L [facility] CO2 [Moles/Vol] 23 mmol/L 22 - 30 mmol/L [facility] Creatinine [Mass/Vol] 0.54 mg/dL 0.52 - 1.04 mg/dL [facility] GFR/1.73 sq M.predicted (S/P/Bld) [Vol rate/Area] - PINF [facility] Comment on above: Calculation based on the Chronic Kidney Disease Epidemiology Collaboration (CKD-EPI) equation refit without adjustment for race Glucose [Mass/Vol] 77 mg/dL 70 - 100 mg/dL [facility] Interpretation and review of laboratory results Abnormal [facility] Potassium [Moles/Vol] 3.3 mmol/L Low 3.5 - 5.1 mmol/L [facility] Protein [Mass/Vol] 6.2 g/dL Low 6.3 - 8.2 g/dL [facility] Sodium [Moles/Vol] 134 mmol/L Low 135 - 145 mmol/L [facility] Urea nitrogen [Mass/Vol] 5 mg/dL Low 7 - 17 mg/dL [facility] Ferritin [Mass/Vol]on 2023 Interpretation and review of laboratory results Abnormal [facility] Laboratory - Chemistry and C hemistry - challengeon 10-29-2023 Ferritin [Mass/Vol] 161 ng/mL High 6 - 137 ng/mL [facility] Cobalamin (Vitamin B12) [Mass/Vol] 713 pg/mL 239 - 931 pg/mL [facility] Magnesium [Mass/Vol] 1.6 mg/dL 1.6 - 2 .3 mg/dL [facility] MR Abdomen WO contraston Radiology Study observation (narrative) [facility] Magnesium [Mass/Vol]on 10-28 Interpretation and review of laboratory results Normal [facility] Manual differential performe d Ql (Bld)Ordered By: Odette Ott on 10-29-2023 Anisocytosis Ql (Bld) Slight Abnormal (none) [facility] Basophils (Bld) [#/Vol] 0.1 10*3/uL 0.0 - 0.2 10*3/uL [facility] Basophils Manual 1 [facility] Basophils/100 WBC (Bld) 1 % 0 - 2 % [facility] Cells Counted Total (Bld) [#] 100 {cells} [facility] Differential Method Manual differential performed [facility] Interpretation and review of laboratory results Abnormal [facility] Lymphocytes (Bld) [#/Vol] 5.7 10*3/uL High 1.0 - 4.3 10*3/uL [facility] Lymphocytes Manual 76 [facility] Lymphocytes/100 WBC (Bld) 76 % High 15 - 45 % [facility] Microcytes Ql (Bld) Slight Abnormal (none) [facility] Monocytes (Bld) [#/Vol] 0.4 10*3/uL 0.0 - 0.9 10*3/uL [facility] Monocytes Manual 5 [facility] Monocytes/100 WBC (Bld) 5 % 5 - 13 % [facility] Neutrophils (Bld) [#/Vol] 1.4 10*3/uL Low 1.8 - 7.0 10*3/uL [facility] Neutrophils Manual 18 [facility] Ovalocytes LM Ql (Bld) Slight Abnormal (none) [facility] Platelet morphology finding Nom (Bld) Normal [facility] Poikilocytosis LM Ql (Bld) Slight Abnormal (none) [facility] Segmented neutrophils/100 WBC (Bld) 18 % Low 38 - 82 % [facility] Smudge cells/100 WBC (Bld) Present Abnormal (none) per 100 WBCs [facility] WBC corrected for nucl RBC (Bld) [#/Vol] 7.5 10*3/uL 3.6 - 10.7 10*3/uL [facility] Differential perform ed on albumin slide. [facility] Basic metabolic 1998 panelon 10-28-2023 Anion gap [Moles/Vol] 11 mmol/L 3 - 13 mmol/L [facility] Calcium [Mass/Vol] 8.4 mg/dL 8.4 - 10. 4 mg/dL [facility] Chloride [Moles/Vol] 100 mmol/L 98 - 10 7 mmol/L [facility] CO2 [Moles/Vol] 23 mmol/L 22 - 30 mmol/L [facility] Creatinine [Mass/Vol] 0.58 mg/dL 0.52 - 1.04 mg/dL [facility] GFR/1.73 sq M.predicted (S/P/Bld) [Vol rate/Area] - PINF [facility] Comment on above: Calculation based on the Chronic Kidney Disease Epidemiology Collaboration (CKD-EPI) equation refit without adjustment for race Glucose [Mass/Vol] 87 mg/dL 70 - 100 mg/dL [facility] Interpretation and review of laboratory results Abnormal [facility] Potassium [Moles/Vol] 3.5 mmol/L 3.5 - 5.1 mmol/L [facility] Sodium [Moles/Vol] 134 mmol/L Low 135 - 145 mmol/L [facility] Urea nitrogen [Mass/Vol] 5 mg/dL Low 7 - 17 mg/dL [facility] CBC W Auto Differential pane l (Bld)Ordered By: Reinier Jackson on 10-28-2023 Erythrocyte distribution width (RBC) [Ratio] 18.3 % High 11.5 - 15.0 % [facility] Hematocrit (Bld) [Volume fraction] 37.9 % 35.0 - 47.0 % [facility] Hemoglobin (Bld) [Mass/Vol] 12.3 g/dL 11.7 - 16.0 g/dL [facility] IPF 6 [facility] MCH (RBC) [Entitic mass] 22.5 pg Low 26.0 - 34.0 pg [facility] MCHC (RBC) [Mass/Vol] 32.5 % 30.5 - 36.0 % [facility] MCV (RBC) [Entitic vol] 69.4 fL Low 77.0 - 99.0 fL [facility] Nucleated RBC/100 WBC (Bld) [Ratio] 0.0 % [facility] Platelet mean volume (Bld) [Entitic vol] [facility] Comment on above: Unable to calculate result. Platelets (Bld) [#/Vol] 191 10*3/uL 140 - 440 10*3/uL [facility] RBC (Bld) [#/Vol] 5.46 10*6/uL High 3.80 - 5.2 0 10*6/uL [facility] WBC (Bld) [#/Vol] 10.0 10*3/uL 3.6 - 10.7 10*3/uL [facility] Hepatic function 2000 panelO rdered By: Tino Lopez on 10-28-2023 Albumin [Mass/Vol] 3.5 g/dL 3.5 - 5.0 g/dL [facility] ALP [Catalytic activity/Vol] 707 U/L High 38 - 126 U/L [facility] ALT [Catalytic activity/Vol] 280 U/L High 0 - 34 U/L [facility] AST [Catalytic activity/Vol] 475 U/L High 15 - 46 U/L [facility] Bilirubin [Mass/Vol] 4.0 mg/dL High 0.2 - 1 .3 mg/dL [facility] Bilirubin.conjugated [Mass/Vol] 1.6 mg/dL High 0.0 - 0.3 mg/dL [facility] Interpretation and review of laboratory results Abnormal [facility] Protein [Mass/Vol] 7.5 g/dL 6.3 - 8.2 g/dL [facility] Laboratory - Chemistry and C hemistry - challengeon 10-28-2023 Lipase [Catalytic activity/Vol] 135 U/L 23 - 300 U/L [facility] Lipase [Catalytic activity/V ol]on 10-28-2023 Interpretation and review of laboratory results Normal [facility] Manual differential performe d Ql (Bld)on 10-28-2023 Anisocytosis Ql (Bld) Slight Abnormal (none) [facility] Band form neutrophils (Bld) [#/Vol] 2.1 10*3/uL High NINF - 0.0 10*3/uL [facility] Band form neutrophils/100 WBC (Bld) 21 % High NINF - 0 % [facility] Bands Manual 33 [facility] Basophils (Bld) [#/Vol] 0.2 10*3/uL 0.0 - 0.2 10*3/uL [facility] Basophils Manual 3 [facility] Basophils/100 WBC (Bld) 2 % 0 - 2 % [facility] Cells Counted Total (Bld) [#] 155 {cells} [facility] Hypochromia Ql (Bld) Slight Abnormal (none) [facility] Leukocyte morphology finding Nom (Bld) Normal [facility] Lymphocytes (Bld) [#/Vol] 2.6 10*3/uL 1.0 - 4.3 10*3/uL [facility] Lymphocytes Manual 40 [facility] Lymphocytes/100 WBC (Bld) 26 % 15 - 45 % [facility] Metamyelocytes (Bld) [#/Vol] 0.3 10*3/uL High NINF - 0.0 10*3/uL [facility] Metamyelocytes Manual 4 [facility] Metamyelocytes/100 WBC (Bld) 3 % High NINF - 0 % [facility] Microcytes Ql (Bld) Slight Abnormal (none) [facility] Monocytes (Bld) [#/Vol] 0.5 10*3/uL 0.0 - 0.9 10*3/uL [facility] Monocytes Manual 7 [facility] Monocytes/100 WBC (Bld) 5 % 5 - 13 % [facility] Neutrophils (Bld) [#/Vol] 6.5 10*3/uL 1.8 - 7.5 10*3/uL [facility] Neutrophils Manual 68 [facility] Platelet morphology finding Nom (Bld) Normal [facility] Segmented neutrophils/100 WBC (Bld) 44 % 38 - 82 % [facility] WBC corrected for nucl RBC (Bld) [#/Vol] 10.0 10*3/uL 3.6 - 10.7 10*3/uL [facility] Few reactive lymphocytes [facility] No Panel Informationon 10-27 Interpretation and review of laboratory results Abnormal [facility] Acetaminophen [Mass/Vol]on 0 10-27-2023 Interpretation and review of laboratory results Abnormal [facility] CBC W Auto Differential pane l (Bld)on 10-27-2023 Erythrocyte distribution width (RBC) [Ratio] 17.9 % High 11.5 - 15.0 % [facility] Hematocrit (Bld) [Volume fraction] 35.4 % 35.0 - 47.0 % [facility] Hemoglobin (Bld) [Mass/Vol] 11.2 g/dL Low 11.7 - 16.0 g/dL [facility] IPF 6 [facility] MCH (RBC) [Entitic mass] 22.9 pg Low 26.0 - 34.0 pg [facility] MCHC (RBC) [Mass/Vol] 31.6 % 30.5 - 36.0 % [facility] MCV (RBC) [Entitic vol] 72.2 fL Low 77.0 - 99.0 fL [facility] Platelet mean volume (Bld) [Entitic vol] [facility] Comment on above: Unable to obtain. Platelets (Bld) [#/Vol] 169 10*3/uL 140 - 440 10*3/uL [facility] RBC (Bld) [#/Vol] 4.90 10*6/uL 3.80 - 5.2 0 10*6/uL [facility] WBC (Bld) [#/Vol] 7.3 10*3/uL 3.6 - 10.7 10*3/uL [facility] Comprehensive metabolic 1998 panelon 10-27-2023 Albumin [Mass/Vol] 3.0 g/dL Low 3.5 - 5.0 g/dL [facility] ALP [Catalytic activity/Vol] 566 U/L High 38 - 126 U/L [facility] ALT [Catalytic activity/Vol] 256 U/L High 0 - 34 U/L [facility] Anion gap [Moles/Vol] 12 mmol/L 3 - 13 mmol/L [facility] AST [Catalytic activity/Vol] 374 U/L High 15 - 46 U/L [facility] Bilirubin [Mass/Vol] 3.0 mg/dL High 0.2 - 1 .3 mg/dL [facility] Calcium [Mass/Vol] 8.3 mg/dL Low 8.4 - 10. 4 mg/dL [facility] Chloride [Moles/Vol] 101 mmol/L 98 - 10 7 mmol/L [facility] CO2 [Moles/Vol] 23 mmol/L 22 - 30 mmol/L [facility] Creatinine [Mass/Vol] 0.65 mg/dL 0.52 - 1.04 mg/dL [facility] GFR/1.73 sq M.predicted (S/P/Bld) [Vol rate/Area] - PINF [facility] Comment on above: Calculation based on the Chronic Kidney Disease Epidemiology Collaboration (CKD-EPI) equation refit without adjustment for race Glucose [Mass/Vol] 73 mg/dL 70 - 100 mg/dL [facility] Interpretation and review of laboratory results Abnormal [facility] Potassium [Moles/Vol] 3.3 mmol/L Low 3.5 - 5.1 mmol/L [facility] Protein [Mass/Vol] 6.4 g/dL 6.3 - 8.2 g/dL [facility] Sodium [Moles/Vol] 136 mmol/L 135 - 145 mmol/L [facility] Urea nitrogen [Mass/Vol] 5 mg/dL Low 7 - 17 mg/dL [facility] Hepatitis 1996 panel (S)on 0 10-27-2023 HAV IgM IA Ql Not detected Not Detected [facility] ealt HBV core IgM IA Ql Not detected Not Detected [facility] HBV surface Ag IA Ql Not detected Not Detected [facility] HCV Ab IA Ql Not detected Not Detected [facility] Comment on above: Patients with DETECT ED Hepatitis C Ab results should have a new specimen submitted for supplemental testing with a Hepatitis C Quantitative RNA assay (viral load), if clinically indicated. Interpretation and review of laboratory results Normal [facility] Laboratory - Chemistry and C hemistry - challengeon 09-04-2024 Lactate [Moles/Vol] 1.0 mmol/L 0.7 - 2. 0 mmol/L [facility] Laboratory - Chemistry and C hemistry - challengeOrdered By: Balwinder Stewart on 10-27-2023 Beta HCG ( test) Ql Negative Negative [facility] Comment on above: Please note: Very di lute urine specimens, as indicated by a low specific gravity, may not contain hostess party sales representative levels of hCG. If is still suspected, a first morning urine specimen should be collected 48 hours later and tested. Beta HCG ( test) Ql (U) is the most common reason for HCG in urine, although choriocarcinoma, hydatidiform mole, and certain nontrophoblastic malignancies also result in detectable urinary HCG levels. Sensitivity = 20mIU/mL. [facility] Laboratory - Drug toxicology on 10-27-2023 Acetaminophen [Mass/Vol] ug/mL Low 10.0 - 30.0 ug/mL [facility] Manual differential performe d Ql (Bld)on 10-27-2023 Anisocytosis Ql (Bld) Slight Abnormal (none) [facility] Atypical Lymphocytes Manual 6 [facility] Band form neutrophils (Bld) [#/Vol] 0.6 10*3/uL High NINF - 0.0 10*3/uL [facility] Band form neutrophils/100 WBC (Bld) 8 % High NINF - 0 % [facility] Bands Manual 8 [facility] Lancing cells LM Ql (Bld) Rare Abnormal (none) [facility] Cells Counted Total (Bld) [#] 100 {cells} [facility] Dacrocytes LM Ql (Bld) Slight Abnormal (none) [facility] Differential Method Manual differential performed [facility] Eosinophils (Bld) [#/Vol] 0.1 10*3/uL 0.0 - 0.5 10*3/uL [facility] Eosinophils Manual 1 0 - 1 [facility] Eosinophils/100 WBC (Bld) 1 % 0 - 6 % [facility] Hypochromia Ql (Bld) Slight Abnormal (none) [facility] Lymphocytes (Bld) [#/Vol] 3.6 10*3/uL 1.0 - 4.3 10*3/uL [facility] [employer] Lymphocytes Manual 49 [facility] Lymphocytes/100 WBC (Bld) 49 % High 15 - 45 % [facility] Metamyelocytes (Bld) [#/Vol] 0.1 10*3/uL High NINF - 0.0 10*3/uL [facility] Metamyelocytes Manual 1 [facility] Metamyelocytes/100 WBC (Bld) 1 % High NINF - 0 % [facility] Microcytes Ql (Bld) Rare Abnormal (none) [facility] Monocytes (Bld) [#/Vol] 0.3 10*3/uL 0.0 - 0.9 10*3/uL [facility] Monocytes Manual 4 [facility] Monocytes/100 WBC (Bld) 4 % Low 5 - 13 % [facility] Neutrophils (Bld) [#/Vol] 2.6 10*3/uL 1.8 - 7.5 10*3/uL [facility] Neutrophils Manual 28 [facility] Ovalocytes LM Ql (Bld) Slight Abnormal (none) [facility] Platelet morphology finding Nom (Bld) Normal [facility] Poikilocytosis LM Ql (Bld) Moderate Abnormal (none) [facility] Polychromasia LM Ql (Bld) Rare Abnormal (none) [facility] Segmented neutrophils/100 WBC (Bld) 28 % Low 38 - 82 % [facility] Smudge cells/100 WBC (Bld) Present Abnormal (none) per 100 WBCs [facility] Unclassified Cells % 3.00 % [facility] Unclassified Cells, Abs. 0.2 10*3/uL [facility] Variant lymphocytes (Bld) [#/Vol] 0.4 10*3/uL High NINF - 0.0 10*3/uL [facility] Variant lymphocytes/100 WBC (Bld) 6 % High NINF - 0 % [facility] WBC corrected for nucl RBC (Bld) [#/Vol] 7.3 10*3/uL 3.6 - 10.7 10*3/uL [facility] Slide sent for pathology review Differential performed on albumin slide. [facility] Manual differential performe d Ql (Bld)Ordered By: Raeann Cast on 10-27-2023 Anisocytosis Ql (Bld) Slight Abnormal (none) [facility] Atypical Lymphocytes Manual 4 [facility] Band form neutrophils (Bld) [#/Vol] 1.0 10*3/uL High NINF - 0.0 10*3/uL [facility] Band form neutrophils/100 WBC (Bld) 11 % High NINF - 0 % [facility] Bands Manual 11 [facility] Lancing cells LM Ql (Bld) Slight Abnormal (none) [facility] Cells Counted Total (Bld) [#] 100 {cells} [facility] Dacrocytes LM Ql (Bld) Slight Abnormal (none) [facility] Differential Method Manual differential performed [facility] Giant platelets LM Ql (Bld) Rare Abnormal (none) [facility] Hypochromia Ql (Bld) Slight Abnormal (none) [facility] Interpretation and review of laboratory results Abnormal [facility] Lymphocytes (Bld) [#/Vol] 4.5 10*3/uL High 1.0 - 4.3 10*3/uL [facility] Lymphocytes Manual 50 [facility] Lymphocytes/100 WBC (Bld) 50 % High 15 - 45 % [facility] Microcytes Ql (Bld) Slight Abnormal (none) [facility] Monocytes (Bld) [#/Vol] 0.7 10*3/uL 0.0 - 0.9 10*3/uL [facility] Monocytes Manual 8 [facility] Monocytes/100 WBC (Bld) 8 % 5 - 13 % [facility] Neutrophils (Bld) [#/Vol] 3.4 10*3/uL 1.8 - 7.5 10*3/uL [facility] Neutrophils Manual 27 [facility] Ovalocytes LM Ql (Bld) Slight Abnormal (none) [facility] Poikilocytosis LM Ql (Bld) Moderate Abnormal (none) [facility] Polychromasia LM Ql (Bld) Slight Abnormal (none) [facility] Segmented neutrophils/100 WBC (Bld) 27 % Low 38 - 82 % [facility] Smudge cells/100 WBC (Bld) Present Abnormal (none) per 100 WBCs [facility] Variant lymphocytes (Bld) [#/Vol] 0.4 10*3/uL High NINF - 0.0 10*3/uL [facility] Variant lymphocytes/100 WBC (Bld) 4 % High NINF - 0 % [facility] WBC corrected for nucl RBC (Bld) [#/Vol] 9.0 10*3/uL 3.6 - 10.7 10*3/uL [facility] Differential perform ed on albumin slide. [facility] No Panel Informationon 10-26 Interpretation and review of laboratory results Abnormal [facility] Interpretation and review of laboratory results Normal [facility] No Panel InformationOrdered By: Balwinder Stewart on 10-27-2023 [facility] No Panel InformationOrdered By: Hi Steele on 10-27-2023 Interpretation and review of laboratory results Normal [facility] MONO TEST Negative Negative [facility] Urinalysis complete panel (U )on 10-27-2023 Bacteria LM.HPF (Urine sed) [#/Area] Few Abnormal Negative /HPF [facility] Bilirubin Ql (U) 2 mg/dL Abnormal Negative [facility] Clarity (U) Turbid Abnormal Clear [facility] Color (U) Dark Yellow Abnormal Lt. Yellow [facility] Epithelial cells.squamous LM.HPF (Urine sed) [#/Area] 11- Abnormal [facility] h Glucose Ql (U) Normal Normal (<70) mg/dL [facility] Hemoglobin Ql (U) 1.0 mg/dL Abnormal Negative [facility] Interpretation and review of laboratory results Abnormal [facility] Ketones (U) [Mass/Vol] 100 mg/dL Abnormal Negative [facility] Leukocyte esterase Test strip Ql (U) 75 Abnormal Negative Krish/uL [facility] Mucus LM.HPF (Urine sed) [#/Area] Many Abnormal Negative /LPF [facility] Nitrite Ql (U) Negative Negative [facility] th pH (U) 6.0 [pH] 5.0 - 8.0 pH [facility] Protein (U) [Mass/Vol] 50 mg/dL Abnormal Negative [facility] RBC LM.HPF (Urine sed) [#/Area] /[HPF] Abnormal [facility] Specific gravity (U) [Rel density] 1.025 1.005 - 1.030 [facility] Urobilinogen (U) [Mass/Vol] 8 mg/dL Abnormal Normal (0-1) [facility] WBC LM.HPF (Urine sed) [#/Area] 11-25 Abnormal [facility] Basic metabolic 1998 panelon 10-26-2023 Anion gap [Moles/Vol] 13 mmol/L 3 - 13 mmol/L [facility] Calcium [Mass/Vol] 8.6 mg/dL 8.4 - 10. 4 mg/dL [facility] Chloride [Moles/Vol] 100 mmol/L 98 - 10 7 mmol/L [facility] CO2 [Moles/Vol] 22 mmol/L 22 - 30 mmol/L [facility] Creatinine [Mass/Vol] 0.61 mg/dL 0.52 - 1.04 mg/dL [facility] GFR/1.73 sq M.predicted (S/P/Bld) [Vol rate/Area] - PINF [facility] Comment on above: Calculation based on the Chronic Kidney Disease Epidemiology Collaboration (CKD-EPI) equation refit without adjustment for race Glucose [Mass/Vol] 74 mg/dL 70 - 100 mg/dL [facility] Potassium [Moles/Vol] 3.5 mmol/L 3.5 - 5.1 mmol/L [facility] Sodium [Moles/Vol] 135 mmol/L 135 - 145 mmol/L [facility] Urea nitrogen [Mass/Vol] 5 mg/dL Low 7 - 17 mg/dL [facility] CBC W Auto Differential pane l (Bld)Ordered By: Gem Puentes on 10-26-2023 Erythrocyte distribution width (RBC) [Ratio] 18.0 % High 11.5 - 15.0 % [facility] Hematocrit (Bld) [Volume fraction] 39.4 % 35.0 - 47.0 % [facility] Hemoglobin (Bld) [Mass/Vol] 12.5 g/dL 11.7 - 16.0 g/dL [facility] Interpretation and review of laboratory results Abnormal [facility] IPF 6 [facility] MCH (RBC) [Entitic mass] 22.6 pg Low 26.0 - 34.0 pg [facility] MCHC (RBC) [Mass/Vol] 31.7 % 30.5 - 36.0 % [facility] MCV (RBC) [Entitic vol] 71.4 fL Low 77.0 - 99.0 fL [facility] Platelet mean volume (Bld) [Entitic vol] [facility] Comment on above: Unable to obtain re sult. Platelets (Bld) [#/Vol] 176 10*3/uL 140 - 440 10*3/uL [facility] RBC (Bld) [#/Vol] 5.52 10*6/uL High 3.80 - 5.2 0 10*6/uL [facility] WBC (Bld) [#/Vol] 9.0 10*3/uL 3.6 - 10.7 10*3/uL [facility] Hepatic function 2000 panelo n 10-26-2023 Albumin [Mass/Vol] 3.5 g/dL 3.5 - 5.0 g/dL [facility] ALP [Catalytic activity/Vol] 595 U/L High 38 - 126 U/L [facility] ALT [Catalytic activity/Vol] 274 U/L High 0 - 34 U/L [facility] AST [Catalytic activity/Vol] 432 U/L High 15 - 46 U/L [facility] Bilirubin [Mass/Vol] 3.2 mg/dL High 0.2 - 1 .3 mg/dL [facility] Bilirubin.conjugated [Mass/Vol] 1.2 mg/dL High 0.0 - 0.3 mg/dL [facility] Protein [Mass/Vol] 7.2 g/dL 6.3 - 8.2 g/dL [facility] Laboratory - Chemistry and C hemistry - challengeon 10-26-2023 Lipase [Catalytic activity/Vol] 57 U/L 23 - 300 U/L [facility] Lipase [Catalytic activity/V ol]on 10-26-2023 Interpretation and review of laboratory results Normal [facility] No Panel Informationon 10-25 Interpretation and review of laboratory results Abnormal [facility] XR Chest Single viewon 10-25 No radiographic acute cardiopulmonary process. Report Dictated on Electronically Signed By: Peggy Arreaga MD Electronically Signed Date/Time: 10/26/2023 10:44 PM EDT [facility] [employer] Patient Name: ANNE MARIE BATES : 1995 [id number] Exam Date/Time: 10/26/2023 22:41 Procedure: XR CHEST 1 VIEW Ordering Provider: LOMBARDI AMY Reason For Exam: HYPERTENSION INDICATION: Hypertension. VIEWS: Chest portable-one image COMPARISON: 06/07/2023 FINDINGS: The trachea is midline. The heart is not enlarged. The right hemidiaphragm is elevated. The costophrenic angles are sharp. There is no confluent consolidation. [facility] [employer] [facility] Peggy Arreaga MD - 10/26/2023 Patient Name: ANNE MARIE PETERSON : 1995 Exam Date/Time: 10/26/2023 22:41 Procedure: XR CHEST 1 VIEW Ordering Provider: LOMBARDI AMY Reason For Exam: HYPERTENSION INDICATION: Hypertension. VIEWS: Chest portable-one image COMPARISON: 06/07/2023 FINDINGS: The trachea is midline. The heart is not enlarged. The right hemidiaphragm is elevated. The costophrenic angles are sharp. There is no confluent consolidation. IMPRESSION: No radiographic acute cardiopulmonary process. Report Dictated on Electronically Signed By: Peggy Arreaga MD Electronically Signed Date/Time: 10/26/2023 10:44 PM EDT [facility] Radiology Study observation (narrative) [facility] XR Chest Single viewOrdered By: Peggy Arreaga on 10-26-2023 [facility] [employer] Work Phone: BCIDon 10-25-2023 Acinetobacter lavonne-baumanii complex Not detected Normal Not Detected [facility] Comment on above: Performed By: #### B ANT #### [place] [address] Bacteroides fragilis Not detected Normal Not Detected [facility] Comment on above: Performed By: #### B ANT #### [place] [id number] BC[facility] Comment See Comment Normal [facility] Comment on above: Result Comment: Anti microbial [...] follow. Performed By: #### B ANT #### [place] [id number] Oumou albicans Not detected Normal Not Detected [facility] ([place] Comment on above: Performed By: #### B ANT #### [facility] [address] [place] [address] Oumou auris Not detected Normal Not Detected [facility] Comment on above: Performed By: #### B ANT #### [facility] [address] [place] [address] Oumou glabrata Not detected Normal Not Detected [facility] ([place] Comment on above: Performed By: #### B ANT #### [place] [address] Oumou krusei Not detected Normal Not Detected [facility] ([place] Comment on above: Performed By: #### B ANT #### [place] [address] Oumou parapsilosis Not detected Normal Not Detected [facility] [place] Comment on above: Performed By: #### B ANT #### [place] [address] Oumou tropicalis Not detected Normal Not Detected [facility] ([place] Comment on above: Performed By: #### B ANT #### [place] [address] Cryptococcus neoformans-gattii Not detected Normal Not Detected [facility] [place] Comment on above: Performed By: #### B ANT #### [place] [address] CTX-M (ESBL) Not Applicable Normal Not Detected [facility] ([place] Comment on above: Performed By: #### B ANT #### [place] [address] E. Coli Not detected Normal Not Detected [facility] Comment on above: Performed By: #### B ANT #### [place] [address] Enterobacter cloacae Complex Not detected Normal Not Detected [facility] [place] Comment on above: Performed By: #### B ANT #### [place] [address] Enterobacterales Not detected Normal Not Detected [facility] ([place] Comment on above: Performed By: #### B ANT #### [facility] [address] [place], [place] [address] Enterococcus faecalis Not detected Normal Not Detected [facility] [place] Comment on above: Performed By: #### B ANT #### [facility] [address] [place] [address] Enterococcus faecium Not detected Normal Not Detected [facility] Comment on above: Performed By: #### B ANT #### [facility] [address] [place] [address] Haemophilus influenzae Not detected Normal Not Detecte d [facility] [place] Comment on above: Performed By: #### B ANT #### [facility] [address] [place] [address] IMP (Carbapenemase) Not Applicable Normal Not Detected [facility] [place] Comment on above: Performed By: #### B ANT #### [place] [address] Klebsiella aerogenes Not detected Normal Not Detected [facility] [place] Comment on above: Performed By: #### B ANT #### [place] [address] Klebsiella oxytoca Not detected Normal Not Detected [facility] ([place] Comment on above: Performed By: #### B ANT #### [place] [address] Klebsiella pneumoniae group Not detected Normal Not Detected [facility] [place] Comment on above: Performed By: #### B ANT #### [place] [address] KPC (Carbapenemase) Not Applicable Normal Not Detected [facility] [place] Comment on above: Performed By: #### B ANT #### [place] [address] Listeria monocytogenes Not detected Normal Not Detecte d [facility] [place] Comment on above: Performed By: #### B ANT #### [place] [address] MCR-1 (Colistin Resistance) Not Applicable Normal Not Detected [facility] [place] Comment on above: Performed By: #### B ANT #### [place] [address] Mec A/C Detected Abnormal Not Detected [facility] Comment on above: Performed By: #### B ANT #### [place] [address] Mec A/C-MREJ (MRSA) Not Applicable Normal Not Detected [facility] [place] Comment on above: Performed By: #### B ANT #### [facility] [address] [place] [address] NDM (Carbapenemase) Not Applicable Normal Not Detected [facility] Comment on above: Performed By: #### B ANT #### [place] [address] Neisseria meningitidis (Encapsalated) Not detected Normal Not Detected [facility] [place] Comment on above: Performed By: #### B ANT #### [place] [address] OXA-48 like (Carbapenemase) Not Applicable Normal Not Detected [facility] [place] Comment on above: Performed By: #### B ANT #### [place] [address] Proteus Not detected Normal Not Detected [facility] [place] Comment on above: Performed By: #### B ANT #### [place] [address] Pseudomonas aeruginosa Not detected Normal Not Detecte d [facility] [place] Comment on above: Performed By: #### B ANT #### [place] [address] S. agalactiae Org specific cx Ql (Vag fld) Not detected Normal Not Detected [facility] Comment on above: Performed By: #### B ANT #### [place] [address] Salmonella species Not detected Normal Not Detected [facility] ([place] Comment on above: Performed By: #### B ANT #### [place] [phone] Serratia marcescens Not detected Normal Not Detected [facility] ([place] Comment on above: Performed By: #### B ANT #### [address] [address] Staphylococcus Detected Abnormal Not Detected [facility] Comment on above: Performed By: #### B ANT #### [address] [address] Staphylococcus aureus Not detected Normal Not Detected [facility] Comment on above: Result Comment: If S taphylococcus aureus is Detected, an Infectious Disease physician consult is required on identification. Performed By: #### B ANT #### [address] [address] Staphylococcus epidermidis Detected Abnormal Not Detected [facility] Comment on above: Performed By: #### B ANT #### [address] [address] Staphylococcus lugdunensis Not detected Normal Not Detected [facility] Comment on above: Performed By: #### B ANT #### [place] [address] Stenotrophomonas maltophilia Not detected Normal Not Detected [facility] Comment on above: Performed By: #### B ANT #### [address] [address] Streptococcus Not detected Normal Not Detected [facility] Comment on above: Performed By: #### B ANT #### [address] [address] Streptococcus pneumoniae Not detected Normal Not Detected [facility] Comment on above: Performed By: #### B ANT #### [place] [phone] Streptococcus pyogenes Not detected Normal Not Detecte d [facility] Comment on above: Performed By: #### B ANT #### [address] [address] Van A/B Not Applicable Normal Not Detected [facility] Comment on above: Performed By: #### B ANT #### [address] [address] VIM (Carbapenemase) Not Applicable Normal Not Detected [facility] Comment on above: Performed By: #### B ANT #### [facility] [address] [place] [address] CBC + DIFFon 10-25-2023 BANDS 3 % Normal 0 - 5 [facility] Comment on above: Performed By: #### 2 54001 #### [facility],[address] [place] [address] Baso # 0.01 x10EE3/UL Normal 0.00 - 0.10 [facility] Comment on above: Performed By: #### 2 76863 #### [facility],[address] [place] [address]758 Basophils/100 WBC (Bld) 0.2 % Normal 0.0 - 2.0 [facility] Comment on above: Performed By: #### 2 70499 #### [facility],[address] [place] [address] CBC + DIFF Normal [facility] Comment on above: Result Comment: CBC- COMPLETE BLOOD COUNT Performed By: #### 2 58120 #### [facility],[address] [place] [address] 85229 CELL COUNT 100 Normal [facility] Comment on above: Performed By: #### 2 40263 #### [facility],[address] [place] [address] 31738 EO 1.0 % Normal 0.0 - 7.0 [facility] Comment on above: Performed By: #### 2 20922 #### [facility],[address] [place] [address] 45149 EO # 0.07 x10EE3/UL Normal 0.00 - 0.50 [facility] Comment on above: Performed By: #### 2 64605 #### [facility],[address] [place] [address]134 Eosinophils/100 WBC (Bld) 1.5 % Normal 0.0 - 7.0 [facility] Comment on above: Performed By: #### 2 17286 #### [facility],[address] [place] [address]34 Erythrocyte distribution width (RBC) [Ratio] 19.5 % High 12.0 - 15.6 [facility] Comment on above: Performed By: #### 2 02154 #### [facility],[address] [place], [place] [id number] Hematocrit (Bld) [Volume fraction] 42.5 % Normal 34.0 - 46.0 [facility] Comment on above: Performed By: #### 2 25506 #### [facility],[address] [place] [address] Hemoglobin (Bld) [Mass/Vol] 13.8 g/dL Normal 12.0 - 16.0 [facility] Comment on above: Performed By: #### 2 46035 #### [place] [address] Lymph # 2.10 x10EE3/UL Normal 0.80 - 2.80 [facility] Comment on above: Performed By: #### 2 72063 #### [facility],[address] [place] [address] Lymphocytes/100 WBC (Bld) 45.1 % High 20.0 - 45.0 [facility] Comment on above: Performed By: #### 2 38174 #### [facility],[address] [place] [address] Lymphocytes/100 WBC (Bld) 36 % Normal 20 - 45 [facility] Comment on above: Performed By: #### 2 22932 #### [facility],[address] [place] [address]997 MANUAL DIFF SEE BELOW Normal [facility] Comment on above: Performed By: #### 2 17805 #### [facility],[address] [place] [address]489 MCH (RBC) [Entitic mass] 23 pg Low 27 - 33 [facility] Comment on above: Performed By: #### 2 24378 #### [facility],[address] [place] [address] MCHC 33 X10 3 Normal 32 - 36 [facility] Comment on above: Performed By: #### 2 15651 #### [facility],[address] [place] [address] MCV (RBC) [Entitic vol] 71 fL Low 80 - 99 [facility] Comment on above: Performed By: #### 2 12819 #### [facility],[address] [place] [address] [place] # 0.55 x10EE3/UL Normal 0.20 - 1.00 [facility] Comment on above: Performed By: #### 2 33208 #### [facility],[address] [place] [address] MONOS 21 % High 0 - 10 [facility] Comment on above: Performed By: #### 2 92551 #### [facility],[address] [place] [address] 20268 MONOS % 11.9 % High 0.0 - 10.0 [facility] Comment on above: Performed By: #### 2 56556 #### [facility],[address] [place] [address] Morphology Girish (Bld) [Interp] N/A Normal [facility] Comment on above: Performed By: #### 2 78698 #### [facility],[address] [place] [address]16 Neut # 1.93 x10EE3/UL Normal 1.50 - 7.10 [facility] Comment on above: Performed By: #### 2 63140 #### [facility],[address] [place] [address] Neutrophils/100 WBC (Bld) 41.3 % Low 46.0 - 76.0 [facility] Comment on above: Performed By: #### 2 70107 #### [facility],[address] [place] [address] PLATELET 185 x10EE3/UL Normal 150 - 450 [facility] Comment on above: Performed By: #### 2 82192 #### [facility],[address] [place] [address]383 Platelet mean volume (Bld) [Entitic vol] 9.8 fL Normal 6.6 - 10.5 [facility] Comment on above: Result Comment: AUTO MATED DIFFERENTIAL Performed By: #### 2 84077 #### [facility],[address] [place] [address] 08998 RBC 5.98 x 10EE6/UL High 4.10 - 5.30 [facility] Comment on above: Performed By: #### 2 38517 #### [facility],[address] [place] [address] 91768 SEGS 39 % Low 46 - 76 [facility] Comment on above: Performed By: #### 2 88531 #### [facility],[address] [place] [address]347 WBC 4.7 x 10EE3/UL Normal 4.5 - 10.8 [facility] Comment on above: Performed By: #### 2 33892 #### [facility],[address] [place] [address] CMP with eGFRon 10-25-2023 AGE 28 years Normal [facility] Comment on above: Performed By: #### 2 44101 #### [facility],[address] [place] [address] Albumin [Mass/Vol] 2.8 g/dL Low 3.4 - 5.0 [facility] Comment on above: Performed By: #### 2 99804 #### [facility],[address] [place] [address] Albumin/Globulin [Mass ratio] 0.8 {ratio} Low 0.9 - 1.6 [facility] Comment on above: Performed By: #### 2 24029 #### [facility],[address] [place] [address] 67729 ALK PHOS 469 U/L High 46 - 116 [facility] Comment on above: Performed By: #### 2 26987 #### [facility],[address] [place] [address] 40788 ALT [Catalytic activity/Vol] 290 U/L High 16 - 63 [facility] Comment on above: Performed By: #### 2 53073 #### [facility],[address] [place] [address] 27008 Anion gap [Moles/Vol] 14 mmol/L Normal 10 - 20 [facility] Comment on above: Performed By: #### 2 09969 #### [facility],[address] [place] [address] AST [Catalytic activity/Vol] 462 U/L High 13 - 39 [facility] Comment on above: Performed By: #### 2 81129 #### [facility],[address] [place] [address] B/C RATIO 4 ratio Normal 0 - 30 [facility] Comment on above: Performed By: #### 2 14986 #### [facility],[address] [place] [address] Bilirubin [Mass/Vol] 2.3 mg/dL High 0.2 - 1.0 [facility] Comment on above: Performed By: #### 2 66465 #### [facility],[address] [place] [address]09 Calcium [Mass/Vol] 8.1 mg/dL Low 8.5 - 10.1 [facility] Comment on above: Performed By: #### 2 23720 #### [facility],[address] [place] [address] Chloride [Moles/Vol] 100 mmol/L Normal 98 - 107 [facility] Comment on above: Performed By: #### 2 61999 #### [facility],[address] [place] [address] 84965 CMP with eGFR Normal [facility] Comment on above: Result Comment: COMP REHENSIVE METABOLIC PANEL Performed By: #### 2 84495 #### [facility],[address] [place] [address] CO2 [Moles/Vol] 26.3 mmol/L Normal 21.0 - 32.0 [facility] Comment on above: Performed By: #### 2 64417 #### [facility],[address] [place] [address] 22056 Creatinine [Mass/Vol] 0.73 mg/dL Normal 0.55 - 1.02 [facility] Comment on above: Performed By: #### 2 76177 #### [facility],[address] [place], [place] [address] GFR/1.73 sq M.predicted among non-blacks MDRD (S/P/Bld) [Vol rate/Area] mL/min/{1.73_m2} Normal 60 - 999 [facility] Comment on above: Performed By: #### 2 39001 #### [facility],[address] [place], [place] [id number] Result Comment: ACCO RDING TO THE NATIONAL KIDNEY DISEASE EDUCATION PROGRAM(NKDE), A NORMAL eGFR IS A VALUE GREATER THAN OR EQUAL TO 60 ML/MIN/1.73 SQ METERS. CHRONIC KIDNEY DISEASE: <60mL/MIN/1.73 SQ METERS KIDNEY FAILURE: <15mL/MIN/1.73 SQ METERS THIS TEST SHOULD ONLY BE USED FOR PATIENTS 18 YEARS OF AGE AND OLDER. Globulin (S) [Mass/Vol] 3.7 g/dL Normal 1.5 - 3.8 [facility] Comment on above: Performed By: #### 2 11964 #### [facility],[address] [place] [address] Glucose [Mass/Vol] 77 mg/dL Normal 74 - 106 [facility] Comment on above: Performed By: #### 2 44048 #### [facility],[address] [place] [address] Potassium [Moles/Vol] 3.5 mmol/L Normal 3.5 - 5.1 [facility] Comment on above: Performed By: #### 2 09468 #### [facility],[address] [place] [address]186 Protein [Mass/Vol] 6.5 g/dL Normal 6.4 - 8.2 [facility] Comment on above: Performed By: #### 2 97104 #### [facility],[address] [place] [address]35 Sodium [Moles/Vol] 137 mmol/L Normal 136 - 145 [facility] Comment on above: Performed By: #### 2 93575 #### [facility],[address] [place] [address]323 Urea nitrogen [Mass/Vol] 3 mg/dL Low 7 - 18 [facility] Comment on above: Performed By: #### 2 27976 #### [facility],[address] [place] [address] ABDOMEN/PELVIS Won 2023 CT ABDOMEN/PELVIS [place] [address] Patient: ANNE MARIE PETERSON Phone#: : 1995 Age: 28 Gender: F Pt. Type: ER Account: [id number] Location: [facility] Ordering: ANUP LARIOS Exam Date: 10/25/2023/16:50 Family Phys: XENIA LANE Charge Code: [id number] Physician: Ashe Order #: [id number] Dose#: [id number] PROCEDURE: CT ABDOMEN/PELVIS WITH CONTRAST COMPARISON: [facility], CT, ABDOMEN/PELVIS W CON, 05/18/2023, 7:05. [...] 28 Gender: F Pt. Type: ER Account: [id number] Location: [facility] Ordering: ANUP LARIOS Exam Date: 10/25/2023/16:50 Family Phys: XENIA DOLTON Charge Code: [id number] Physician: Ashe Order #: [id number] Dose#: [id number] CONCLUSION: 1. Possible early pancreatitis of the head. Correlate lipase/amylase levels. Dictated by: Astrid Johnson MD on 10/25/2023 at 18:52 Approved by: Astrid Johnson MD on 10/25/2023 at 18:57 Normal [facility] CULTURE BLOOD [TORY]on Microscopic examination of blood, culture CULTURE BLOOD [TORY] _BLOOD CULTURE_ GO TO [facility] REPORTS AND ATTACHMENTS FOR SCANNED REPORT 11/01/[id number] ETE Normal [facility] Comment on above: Performed By: #### 2 33727 #### [facility],[address] [place] [address] Microscopic examination of blood, culture CULTURE BLOOD [TORY] _BLOOD CULTURE_ GO TO [facility] REPORTS AND ATTACHMENTS FOR SCANNED REPORT 11/01/[id number] ETE Normal [facility] Comment on above: Performed By: #### 2 09678 #### [facility],[address] [place] [address] LACTATEon 10-25-2023 Lactate [Moles/Vol] 1.2 mmol/L Normal 0.4 - 2.0 [facility] Comment on above: Performed By: #### 2 06453 #### [facility],[address] [place] [address] SERUM QUALon 10-24 EXTERNAL QC DONE? YES Normal [facility] Comment on above: Performed By: #### 2 64854 #### [facility],[address] [place] [address] INTERNAL QC PASS Normal [facility] Comment on above: Performed By: #### 2 43898 #### [facility],[address] [place] [address] SER Negative Normal NEGATIVE [facility] Comment on above: Performed By: #### 2 66288 #### [facility],[address] [place] [address] CBC + DIFFon 10-24-2023 Baso # 0.00 x10EE3/UL Normal 0.00 - 0.10 [facility] Comment on above: Performed By: #### 2 59721 #### [facility],[address] [place] [address] Basophils/100 WBC (Bld) 0.1 % Normal 0.0 - 2.0 [facility] Comment on above: Performed By: #### 2 52163 #### [facility],[address] [place] [address] CBC + DIFF Normal [facility] Comment on above: Result Comment: CBC- COMPLETE BLOOD COUNT Performed By: #### 2 49527 #### [facility],[address] [place] [address] EO # 0.03 x10EE3/UL Normal 0.00 - 0.50 [facility] Comment on above: Performed By: #### 2 21964 #### [facility],[address] [place] [address] Eosinophils/100 WBC (Bld) 0.7 % Normal 0.0 - 7.0 [facility] Comment on above: Performed By: #### 2 72359 #### [facility],[address] [place] [address] Erythrocyte distribution width (RBC) [Ratio] 17.9 % High 12.0 - 15.6 [facility] Comment on above: Performed By: #### 2 65725 #### [facility],[address] [place] [address] Hematocrit (Bld) [Volume fraction] 40.0 % Normal 34.0 - 46.0 [facility] Comment on above: Performed By: #### 2 08617 #### [facility],[address] [place] [address] Hemoglobin (Bld) [Mass/Vol] 13.5 g/dL Normal 12.0 - 16.0 [facility] Comment on above: Performed By: #### 2 36652 #### [facility],[address] [place] [address] Lymph # 1.64 x10EE3/UL Normal 0.80 - 2.80 [facility] Comment on above: Performed By: #### 2 90007 #### [facility],[address] [place] [address] 07986 Lymphocytes/100 WBC (Bld) 43.5 % Normal 20.0 - 45.0 [facility] Comment on above: Performed By: #### 2 65900 #### [facility],[address] [place] [address] 56254 MANUAL DIFF N/A Normal [facility] Comment on above: Performed By: #### 2 62934 #### [facility],[address] [place] [address] MCH (RBC) [Entitic mass] 24 pg Low 27 - 33 [facility] Comment on above: Performed By: #### 2 02039 #### [facility],[address] [place] [address] MCHC 34 X10 3 Normal 32 - 36 [facility] Comment on above: Performed By: #### 2 90165 #### [facility],[address] [place] [address] MCV (RBC) [Entitic vol] 71 fL Low 80 - 99 [facility] Comment on above: Performed By: #### 2 42482 #### [facility],[address] [place] [address] [place] # 0.37 x10EE3/UL Normal 0.20 - 1.00 [facility] Comment on above: Performed By: #### 2 46047 #### [facility],[address] [place] [address] MONOS % 9.8 % Normal 0.0 - 10.0 [facility] Comment on above: Performed By: #### 2 36220 #### [facility],[address] [place], [place] [id number] Morphology Girish (Bld) [Interp] N/A Normal [facility] Comment on above: Performed By: #### 2 32500 #### [facility],[address] [place] [address] 27651 Neut # 1.73 x10EE3/UL Normal 1.50 - 7.10 [facility] Comment on above: Performed By: #### 2 51942 #### [facility],[address] [place] [address] 45569 Neutrophils/100 WBC (Bld) 45.9 % Low 46.0 - 76.0 [facility] Comment on above: Performed By: #### 2 14455 #### [facility],[address] [place] [address] 30025 PLATELET 202 x10EE3/UL Normal 150 - 450 [facility] Comment on above: Performed By: #### 2 15409 #### [facility],[address] [place] [address] 45942 Platelet mean volume (Bld) [Entitic vol] 9.6 fL Normal 6.6 - 10.5 [facility] Comment on above: Result Comment: AUTO MATED DIFFERENTIAL Performed By: #### 2 07032 #### [facility],[address] [place] [address] 11656 RBC 5.64 x 10EE6/UL High 4.10 - 5.30 [facility] Comment on above: Performed By: #### 2 12059 #### [facility],[address] [place] [address] 96836 WBC 3.8 x 10EE3/UL Low 4.5 - 10.8 [facility] Comment on above: Performed By: #### 2 46891 #### [facility],[address] [place] [address] 55060 CMP with eGFRon 10-24-2023 AGE 28 years Normal [facility] Comment on above: Performed By: #### 2 63846 #### [facility],[address] [place] [address] 35563 Albumin [Mass/Vol] 3.0 g/dL Low 3.4 - 5.0 [facility] Comment on above: Performed By: #### 2 01591 #### [facility],[address] [place] [address] 76927 Albumin/Globulin [Mass ratio] 0.7 {ratio} Low 0.9 - 1.6 [facility] Comment on above: Performed By: #### 2 04902 #### [facility],[address] [place] [address] 44583 ALK PHOS 271 U/L High 46 - 116 [facility] Comment on above: Performed By: #### 2 90796 #### [facility],[address] [place] [address] 27371 ALT [Catalytic activity/Vol] 208 U/L High 16 - 63 [facility] Comment on above: Performed By: #### 2 09369 #### [facility],[address] [place] [address] 44331 Anion gap [Moles/Vol] 14 mmol/L Normal 10 - 20 [facility] Comment on above: Performed By: #### 2 33812 #### [facility],[address] [place] [address] 23417 AST [Catalytic activity/Vol] 517 U/L High 13 - 39 [facility] Comment on above: Performed By: #### 2 09936 #### [facility],[address] [place] [address] 41975 B/C RATIO 9 ratio Normal 0 - 30 [facility] Comment on above: Performed By: #### 2 02418 #### [facility],[address] [place] [address] 27384 Bilirubin [Mass/Vol] 1.6 mg/dL High 0.2 - 1.0 [facility] Comment on above: Performed By: #### 2 11571 #### [facility],[address] [place] [address] 52339 Calcium [Mass/Vol] 8.5 mg/dL Normal 8.5 - 10.1 [facility] Comment on above: Performed By: #### 2 73140 #### [facility],[address] [place] [address] 08567 Chloride [Moles/Vol] 99 mmol/L Normal 98 - 107 [facility] Comment on above: Performed By: #### 2 00843 #### [facility],[address] [place] [address] 71013 CMP with eGFR Normal [facility] Comment on above: Result Comment: COMP REHENSIVE METABOLIC PANEL Performed By: #### 2 92126 #### [facility],[address] [place] [address] 48915 CO2 [Moles/Vol] 28.3 mmol/L Normal 21.0 - 32.0 [facility] Comment on above: Performed By: #### 2 50866 #### [facility],[address] [place] [address] 33590 Creatinine [Mass/Vol] 0.81 mg/dL Normal 0.55 - 1.02 [facility] Comment on above: Performed By: #### 2 66027 #### [facility],[address] [place] [address] 65015 GFR/1.73 sq M.predicted among non-blacks MDRD (S/P/Bld) [Vol rate/Area] mL/min/{1.73_m2} Normal 60 - 999 [facility] Comment on above: Performed By: #### 2 55948 #### [facility],[address] [place] [address] 23355 Result Comment: ACCO RDING TO THE NATIONAL KIDNEY DISEASE EDUCATION PROGRAM(NKDE), A NORMAL eGFR IS A VALUE GREATER THAN OR EQUAL TO 60 ML/MIN/1.73 SQ METERS. CHRONIC KIDNEY DISEASE: <60mL/MIN/1.73 SQ METERS KIDNEY FAILURE: <15mL/MIN/1.73 SQ METERS THIS TEST SHOULD ONLY BE USED FOR PATIENTS 18 YEARS OF AGE AND OLDER. Globulin (S) [Mass/Vol] 4.4 g/dL High 1.5 - 3.8 [facility] Comment on above: Performed By: #### 2 57208 #### [facility],[address] [place] [address] 21893 Glucose [Mass/Vol] 86 mg/dL Normal 74 - 106 [facility] Comment on above: Performed By: #### 2 61559 #### [facility],[address] [place] [address] 10144 Potassium [Moles/Vol] 3.3 mmol/L Low 3.5 - 5.1 [facility] Comment on above: Performed By: #### 2 99848 #### [facility],[address] [place] [address] 34268 Protein [Mass/Vol] 7.4 g/dL Normal 6.4 - 8.2 [facility] Comment on above: Performed By: #### 2 92845 #### [facility],[address] [place], [place] [phone] Sodium [Moles/Vol] 138 mmol/L Normal 136 - 145 [facility] Comment on above: Performed By: #### 2 22497 #### [facility],[address] [place], [place] [phone] Urea nitrogen [Mass/Vol] 7 mg/dL Normal 7 - 18 [facility] Comment on above: Performed By: #### 2 72028 #### [facility],[address] [place], [place] [phone] CORONAVIRUS (SARS) ANTIGEN T ESTon 10-24-2023 EXTERNAL QC DONE? YES Normal [facility] Comment on above: Performed By: #### 2 05805 #### [facility],[address] [place], [place] [phone] INTERNAL CONTROL PASS Normal [facility] Comment on above: Performed By: #### 2 14037 #### [facility],[address] [place] [address] 67037 SARS ANTIGEN Negative Normal NORMAL: NEGATIVE [facility] Comment on above: Performed By: #### 2 58116 #### [facility],[address] [place], [place] [id number] SEND TO ? NO Normal [facility] Comment on above: Result Comment: SARS -CoV-2 THIS TEST IS BEING USED UNDER THE FDA EUA PROCEDURE. THIS ASSAY HAS BEEN VALIDATED AT [facility] FOR USE WITH NASAL AND NASOPHARYNGEAL [...] PUBLIC HEALTH AUTHORITIES. Performed By: #### 2 17978 #### [facility],[address] [place], [place] [id number] CULTURE BLOOD [TORY]on Microscopic examination of blood, culture CULTURE BLOOD [TORY] _BLOOD CULTURE_ GO TO [facility] REPORTS AND ATTACHMENTS FOR SCANNED REPORT 11/01/[id number] ETE [facility] Comment on above: Performed By: #### 2 94673 #### [facility],[address] [place], [place] [id number] Microscopic examination of blood, culture CULTURE BLOOD [TORY] _BLOOD CULTURE_ GO TO [facility] REPORTS AND ATTACHMENTS FOR SCANNED REPORT 10/27/[id number] ETE Normal [facility] Comment on above: Performed By: #### 2 48926 #### [facility],[address] [place], [place] [id number] INFLUENZA VIRUS RAPID A/Bon 10-24-2023 INFLUENZA VIRUS [...] TO THREE DAYS. RESULT CRITICAL? NO Normal [facility] Comment on above: Performed By: #### 2 23611 #### [facility],[address] [place] [address] 16734 LACTATEon 10-24-2023 Lactate [Moles/Vol] 1.1 mmol/L Normal 0.4 - 2.0 [facility] Comment on above: Performed By: #### 2 05946 #### [facility],[address] [place] [address] 37569 LIPASEon 10-24-2023 Lipase [Catalytic activity/Vol] 13.0 U/L Low 15.0 - 78.0 [facility] Comment on above: Result Comment: *PLE ASE NOTE THAT RANGES FOR LIPASE HAVE CHANGED OF 02/19/23 DUE TO AN ASSAY UPDATE BY THE POWER AND RECOVERY SUPERVISOR.THE NEW ASSAY RANGE IS 6-250 U/L, WITH A REFERENCE RANGE OF 16-77 U/L. Performed By: #### 2 79115 #### [facility],[address] [place] [address] 28324 URINALYSISon 10-24-2023 Amorphous NONE Normal [facility] Comment on above: Performed By: #### 2 25028 #### [facility],[address] [place] [address] Bacteria 4+ Normal [facility] Comment on above: Performed By: #### 2 79432 #### [facility],[address] [place] [address] Bilirubin Ql (U) 3 Abnormal NORMAL: NEGATIVE [facility] Comment on above: Performed By: #### 2 31779 #### [facility],[address] [place] [address] Casts NONE Normal [facility] Comment on above: Performed By: #### 2 30250 #### [facility],[address] [place], [place] [phone] Clarity (U) sl.cloudy Normal NORMAL: CLEAR [facility] Comment on above: Performed By: #### 2 71751 #### [facility],[address] [place], [place] [id number] Color (U) brown Normal NORMAL: YELLOW [facility] Comment on above: Performed By: #### 2 99375 #### [facility],[address] [place] [address] 65589 Crystals LM Nom (Urine sed) NONE Normal [facility] Comment on above: Performed By: #### 2 95758 #### [facility],[address] [place] [address] 77898 Epi Cells MODERATE Normal [facility] Comment on above: Performed By: #### 2 25652 #### [facility],[address] [place] [address] 25302 Glucose Ql (U) NORM Normal NORMAL: NORMAL [facility] Comment on above: Performed By: #### 2 85565 #### [facility],[address] [place] [address] 11585 Hemoglobin Ql (U) 50 Abnormal NORMAL: NEGATIVE [facility] Comment on above: Performed By: #### 2 68253 #### [facility],[address] [place] [address] 30099 Ketone 50 Abnormal NORMAL: NEGATIVE [facility] Comment on above: Performed By: #### 2 31429 #### [facility],[address] [place] [address] 60503 Leukocytes 500 Abnormal NORMAL: NEGATIVE [facility] Comment on above: Performed By: #### 2 89179 #### [facility],[address] [place], [place] [phone] Mucous NONE Normal [facility] Comment on above: Performed By: #### 2 85329 #### [facility],[address] [place] [address] 31913 Nitrite Ql (U) Positive Normal NORMAL: NEGATIVE [facility] Comment on above: Performed By: #### 2 44865 #### [facility],[address] [place] [address] 34443 pH (U) 6 [pH] Normal NORMAL: 5.0-8.0 [facility] Comment on above: Performed By: #### 2 07431 #### [facility],[address] [place] [address] 70112 Protein Ql (U) 30 Abnormal NORMAL: NEGATIVE [facility] Comment on above: Performed By: #### 2 18094 #### [facility],[address] [place] [address] 65596 Rbc 5-10 Normal 0-3/hpf [facility] Comment on above: Performed By: #### 2 28856 #### [facility],[address] [place] [address] Sp Marks 1.015 Normal NORMAL: 1.010-1.030 [facility] Comment on above: Performed By: #### 2 32876 #### [facility],[address] [place] [address] Specimen Type UNSPECIFIED Normal [facility] Comment on above: Performed By: #### 2 04862 #### [place] [address] Urinalysis dipstick W Reflex Microscopic panel (U) SEE BELOW Normal [facility] Comment on above: Result Comment: MICR OSCOPIC Performed By: #### 2 48326 #### [place] [address] Urobilinog 12 Abnormal NORMAL: NORMAL [facility] Comment on above: Performed By: #### 2 04089 #### [place] [address] Wbc 26-50 Normal 0-5/hpf [facility] Comment on above: Performed By: #### 2 07249 #### [place] [address] Yeast NONE Normal [facility] Comment on above: Performed By: #### 2 29296 #### [place] [address] CORONAVIRUS PCR - [facility] 10-22-2023 SARS-CoV-2 (COVID-19) RNA FR[place]+probe Ql (Unsp spec) Negative Normal NORMAL: NEGATIVE [facility] Comment on above: Performed By: #### 2 23285 #### [place] [address] SEND TO IC? NO Normal [facility] Comment on above: Result Comment: RESU LTS FAXED TO INFECTION CONTROL. SARS-CoV-2 THIS TEST IS BEING USED UNDER THE FDA EUA PROCEDURE. THIS ASSAY HAS BEEN VALIDATED IN THE [facility] FOR USE WITH NASOPHARYNGEAL SPECIMENS IN [facility]. INTERPRETIVE DATA LABORATORY TEST RESULTS SHOULD ALWAYS [...] PUBLIC HEALTH AUTHORITIES. Performed By: #### 2 11191 #### [facility],[address] [place] [address] Result Comment: THIS ASSAY HAS BEEN VALIDATED IN THE [facility] FOR USE WITH NASOPHARYNGEAL SPECIMENS IN [facility]. INTERPRETIVE DATA THE [employer] RESPIRATORY PATHOGENS FLEX NUCLEIC ACID TEST (RP FLEX) IS A MULTIPLEXED QUALITATIVE TEST INTENDED FOR THE SIMULTANEOUS DETECTION AND IDENTIFICATION OF MULTIPLE VIRAL AND BACTERIAL NUCLEIC ACIDS IN NASOPHARYNGEAL SWABS (TIMBER APPRAISER) OBTAINED FROM INDIVIDUALS SUSPECTED OF RESPIRATORY TRACT INFECTION. THE TEST IS PERFORMED ON THE AUTOMATED [employer] SYSTEM UTILIZING REVERSE PUBLIC HEALTH DIETITIAN (RT), POLYMERASE CHAIN REACTION (PCR), AND MICROARRAY [...] INFECTION THAT IS NOT DETECTED BY AN TIMBER APPRAISER SPECIMEN. CONVERSELY, POSITIVE RESULTS DO NOT RULE-OUT [...] AND CULTURE SPECIMENS. Performed By: #### 2 41067 #### [place] [address] RESPIRATORY PANEL PCR (POM)o n 10-22-2023 ADENOVIRUS Negative Normal NORMAL: NEGATIVE [facility] Comment on above: Performed By: #### 2 45165 #### [place] [address] B. HOLMESII Negative Normal NORMAL: NEGATIVE [facility] Comment on above: Performed By: #### 2 93678 #### [place] [address] B. PARAPERTUSSIS Negative Normal NORMAL: NEGATIVE [facility] Comment on above: Performed By: #### 2 32176 #### [facility],[address] [place] [address] 53132 B. PERTUSSIS Negative Normal NORMAL: NEGATIVE [facility] Comment on above: Performed By: #### 2 07131 #### [facility],[address] [place] [address] 65063 H. METAPNEUMOVIRUS Negative Normal NORMAL: NEGATIVE [facility] Comment on above: Performed By: #### 2 12531 #### [facility],[address] [place] [address] 74970 Influenza A Negative Normal NORMAL: NEGATIVE [facility] Comment on above: Performed By: #### 2 32416 #### [facility],[address] [place] [address] 19063 INFLUENZA A H1 Negative Normal NORMAL: NEGATIVE [facility] Comment on above: Performed By: #### 2 39850 #### [facility],[address] [place] [address] 01046 INFLUENZA A H3 Negative Normal NORMAL: NEGATIVE [facility] Comment on above: Performed By: #### 2 43862 #### [facility],[address] [place] [address] 48261 Influenza B Negative Normal NORMAL: NEGATIVE [facility] Comment on above: Performed By: #### 2 15205 #### [facility],[address] [place] [address] 75378 PARAINFLUENZA 1 Negative Normal NORMAL: NEGATIVE [facility] Comment on above: Performed By: #### 2 67382 #### [facility],[address] [place] [address] 69037 PARAINFLUENZA 2 Negative Normal NORMAL: NEGATIVE [facility] Comment on above: Performed By: #### 2 94925 #### [facility],[address] [place] [address] PARAINFLUENZA 3 Negative Normal NORMAL: NEGATIVE [facility] Comment on above: Performed By: #### 2 15522 #### [facility],[address] [place] [address] PARAINFLUENZA 4 Negative Normal NORMAL: NEGATIVE [facility] Comment on above: Performed By: #### 2 59820 #### [facility],[address] [place] [address] RESPIRATORY PANEL PCR (POM) Normal [facility] Comment on above: Result Comment: RESP IRATORY PANEL FLEX PCR Performed By: #### 2 27455 #### [facility],[address] [place] [address] RHINOVIRUS Negative Normal NORMAL: NEGATIVE [facility] Comment on above: Performed By: #### 2 40462 #### [facility],[address] [place] [address] RSV A Negative Normal NORMAL: NEGATIVE [facility] Comment on above: Performed By: #### 2 93373 #### [facility],[address] [place] [address] RSV B Negative Normal NORMAL: NEGATIVE [facility] Comment on above: Performed By: #### 2 67738 #### [facility],[address] [place] [address] Gastroenterology Visit Repor ton 10-19-2023 Gastroenterology Visit Report Normal [facility] ECG 12 lead - CLINIC PERFORM EDon 08-23-2023 Sinus Rhythm -RSR(V1) NORMAL [facility] [employer] CBC panel Auto (Bld)Ordered By: Tino Lopez on 08-11-2023 Erythrocyte distribution width (RBC) [Ratio] 18.5 % High 11.5 - 15.0 % [facility] [employer] Hematocrit (Bld) [Volume fraction] 38.7 % 35.0 - 47.0 % [facility] [employer] Hemoglobin (Bld) [Mass/Vol] 11.7 g/dL 11.7 - 16.0 g/dL [facility] Interpretation and review of laboratory results Abnormal [facility] IPF 5 [facility] MCH (RBC) [Entitic mass] 22.9 pg Low 26.0 - 34.0 pg [facility] MCHC (RBC) [Mass/Vol] 30.2 % Low 30.5 - 36.0 % [facility] MCV (RBC) [Entitic vol] 75.7 fL Low 77.0 - 99.0 fL [facility] Platelet mean volume (Bld) [Entitic vol] 11.9 fL 9.0 - 12.7 fL [facility] Platelets (Bld) [#/Vol] 311 10*3/uL 140 - 440 10*3/uL [facility] RBC (Bld) [#/Vol] 5.11 10*6/uL 3.80 - 5.2 0 10*6/uL [facility] WBC (Bld) [#/Vol] 7.8 10*3/uL 3.6 - 10.7 10*3/uL [facility] Cobalamin (Vitamin B12) [Mas s/Vol]on 08-11-2023 Interpretation and review of laboratory results Normal [facility] Comprehensive metabolic 1998 panelon 08-11-2023 Albumin [Mass/Vol] 3.7 g/dL 3.5 - 5.0 g/dL [facility] ALP [Catalytic activity/Vol] 73 U/L 38 - 126 U/L [facility] ALT [Catalytic activity/Vol] 27 U/L 0 - 34 U/L [facility] Anion gap [Moles/Vol] 8 mmol/L 3 - 13 mmol/L [facility] AST [Catalytic activity/Vol] 34 U/L 15 - 46 U/L [facility] Bilirubin [Mass/Vol] 0.6 mg/dL 0.2 - 1 .3 mg/dL [facility] Calcium [Mass/Vol] 9.0 mg/dL 8.4 - 10. 4 mg/dL [facility] Chloride [Moles/Vol] 104 mmol/L 98 - 10 7 mmol/L [facility] CO2 [Moles/Vol] 25 mmol/L 22 - 30 mmol/L [facility] Creatinine [Mass/Vol] 0.54 mg/dL 0.52 - 1.04 mg/dL [facility] GFR/1.73 sq M.predicted MDRD (S/P/Bld) [Vol rate/Area] - PINF [facility] Comment on above: Calculation based on the Chronic Kidney Disease Epidemiology Collaboration (CKD-EPI) equation refit without adjustment for race Glucose [Mass/Vol] 82 mg/dL 70 - 100 mg/dL [facility] Potassium [Moles/Vol] 3.9 mmol/L 3.5 - 5.1 mmol/L [facility] Protein [Mass/Vol] 7.1 g/dL 6.3 - 8.2 g/dL [facility] Sodium [Moles/Vol] 138 mmol/L 135 - 145 mmol/L [facility] Urea nitrogen [Mass/Vol] 7 mg/dL 7 - 17 mg/dL [facility] Ferritinon 08-11-2023 Ferritin [Mass/Vol] 19 ng/mL 6 - 137 ng/mL [facility] Ferritin [Mass/Vol]on 2023 Interpretation and review of laboratory results Normal [facility] Folateon 08-11-2023 Folate [Mass/Vol] 2.5 ng/mL Low 2.9 - PINF ng/mL [facility] Folate [Mass/Vol]on 08-11-19 Interpretation and review of laboratory results Abnormal [facility] Iron and Iron binding capaci ty panelon 08-11-2023 Iron [Mass/Vol] 40 ug/dL 37 - 170 ug/dL [facility] Magnesiumon 08-11-2023 Magnesium [Mass/Vol] 1.8 mg/dL 1.6 - 2 .3 mg/dL [facility] No Panel Informationon 08-10 [facility] Interpretation and review of laboratory results Normal [facility] Vitamin B12on 08-11-2023 Cobalamin (Vitamin B12) [Mass/Vol] 242 pg/mL 239 - 931 pg/mL [facility] Basic metabolic 1998 panelon 06-11-2023 Anion gap [Moles/Vol] 4 mmol/L 3 - 13 mmol/L [facility] Calcium [Mass/Vol] 8.1 mg/dL Low 8.4 - 10. 4 mg/dL [facility] Chloride [Moles/Vol] 105 mmol/L 98 - 10 7 mmol/L [facility] CO2 [Moles/Vol] 28 mmol/L 22 - 30 mmol/L [facility] Creatinine [Mass/Vol] 0.42 mg/dL Low 0.52 - 1.04 mg/dL [facility] GFR/1.73 sq M.predicted MDRD (S/P/Bld) [Vol rate/Area] - PINF [facility] Comment on above: Calculation based on the Chronic Kidney Disease Epidemiology Collaboration (CKD-EPI) equation refit without adjustment for race Glucose [Mass/Vol] 91 mg/dL 70 - 100 mg/dL [facility] Interpretation and review of laboratory results Abnormal [facility] Potassium [Moles/Vol] 3.6 mmol/L 3.5 - 5.1 mmol/L [facility] Sodium [Moles/Vol] 136 mmol/L 135 - 145 mmol/L [facility] Urea nitrogen [Mass/Vol] 10 mg/dL 7 - 17 mg/dL [facility] Laboratory - Chemistry and C hemistry - challengeon 06-11-2023 Magnesium [Mass/Vol] 1.9 mg/dL 1.6 - 2 .3 mg/dL [facility] No Panel Informationon 06-10 Interpretation and review of laboratory results Normal [facility] Phosphate [Moles/Vol]on 05-23 Phosphate [Mass/Vol] 4.0 mg/dL 2.5 - 4 .5 mg/dL [facility] Basic metabolic 1998 panelon 06-10-2023 Anion gap [Moles/Vol] 4 mmol/L 3 - 13 mmol/L [facility] Calcium [Mass/Vol] 8.3 mg/dL Low 8.4 - 10. 4 mg/dL [facility] Chloride [Moles/Vol] 104 mmol/L 98 - 10 7 mmol/L [facility] CO2 [Moles/Vol] 29 mmol/L 22 - 30 mmol/L [facility] Creatinine [Mass/Vol] 0.40 mg/dL Low 0.52 - 1.04 mg/dL [facility] GFR/1.73 sq M.predicted MDRD (S/P/Bld) [[facility] Comment on above: Calculation based on the Chronic Kidney Disease Epidemiology Collaboration (CKD-EPI) equation refit without adjustment for race Glucose [Mass/Vol] 95 mg/dL 70 - 100 mg/dL [facility] Interpretation and review of laboratory results Abnormal [facility] Potassium [Moles/Vol] 3.2 mmol/L Low 3.5 - 5.1 mmol/L [facility] Sodium [Moles/Vol] 137 mmol/L 135 - 145 mmol/L [facility] Urea nitrogen [Mass/Vol] 10 mg/dL 7 - 17 mg/dL [facility] CBC W Auto Differential pane l (Bld)on 06-10-2023 Basophils (Bld) [#/Vol] 0.0 10*3/uL 0.0 - 0.2 10*3/uL [facility] Basophils/100 WBC (Bld) 0.5 % 0.0 - 2.0 % [facility] Eosinophils (Bld) [#/Vol] 0.2 10*3/uL 0.0 - 0.5 10*3/uL [facility] Eosinophils/100 WBC (Bld) 3.4 % 0.0 - 6.0 % [facility] Erythrocyte distribution width (RBC) [Ratio] 19.2 % High 11.5 - 15.0 % [facility] Hematocrit (Bld) [Volume fraction] 31.1 % Low 35.0 - 47.0 % [facility] Hemoglobin (Bld) [Mass/Vol] 9.5 g/dL Low 11.7 - 16.0 g/dL [facility] Immature granulocytes (Bld) [#/Vol] 0.0 10*3/uL NINF - 0.1 10*3/uL [facility] Immature granulocytes/100 WBC (Bld) 0.3 % 0.0 - 2.0 % [facility] Interpretation and review of laboratory results Abnormal [facility] IPF 5 [facility] Lymphocytes (Bld) [#/Vol] 1.8 10*3/uL 1.0 - 4.3 10*3/uL [facility] Lymphocytes/100 WBC (Bld) 30.2 % 15.0 - 45.0 % [facility] MCH (RBC) [Entitic mass] 22.6 pg Low 26.0 - 34.0 pg [facility] MCHC (RBC) [Mass/Vol] 30.5 % 30.5 - 36.0 % [facility] MCV (RBC) [Entitic vol] 73.9 fL Low 77.0 - 99.0 fL [facility] Monocytes (Bld) [#/Vol] 0.5 10*3/uL 0.0 - 0.9 10*3/uL [facility] Monocytes/100 WBC (Bld) 8.0 % 5.0 - 13.0 % [facility] Neutrophils (Bld) [#/Vol] 3.4 10*3/uL 1.8 - 7.5 10*3/uL [facility] Neutrophils/100 WBC (Bld) 57.6 % 38.0 - 82.0 % [facility] Nucleated RBC/100 WBC (Bld) [Ratio] 0.0 % [facility] Platelet mean volume (Bld) [Entitic vol] 12.1 fL 9.0 - 12.7 fL [facility] Platelets (Bld) [#/Vol] 238 10*3/uL 140 - 440 10*3/uL [facility] RBC (Bld) [#/Vol] 4.21 10*6/uL 3.80 - 5.2 0 10*6/uL [facility] WBC (Bld) [#/Vol] 5.9 10*3/uL 3.6 - 10.7 10*3/uL [facility] Basophils (Bld) [#/Vol] [facility] Comment on above: DISREGARD Corrected result: Previously reported as 0.0 10*3/uL (reference range: 0.0-0.2 10*3/uL) on 06/10/2023 at 0109 EDT. Basophils/100 WBC (Bld) [facility] Comment on above: DISREGARD Corrected result: Previously reported as 0.3 % (reference range: 0.0-2.0 %) on 06/10/2023 at 0109 EDT. Eosinophils (Bld) [#/Vol] [facility] Comment on above: DISREGARD Corrected result: Previously reported as 0.2 10*3/uL (reference range: 0.0-0.5 10*3/uL) on 06/10/2023 at 0109 EDT. Eosinophils/100 WBC (Bld) [facility] Comment on above: DISREGARD Corrected result: Previously reported as 3.4 % (reference range: 0.0-6.0 %) on 06/10/2023 at 0109 EDT. Erythrocyte distribution width (RBC) [Ratio] [facility] Comment on above: DISREGARD Corrected result: Previously reported as 19.7 % (reference range: 11.5-15.0 %) on 06/10/2023 at 0109 EDT. Hematocrit (Bld) [Volume fraction] [facility] Comment on above: DISREGARD Corrected result: Previously reported as 31.4 % (reference range: 35.0-47.0 %) on 06/10/2023 at 0109 EDT. Hemoglobin (Bld) [Mass/Vol] [facility] Comment on above: DISREGARD Corrected result: Previously reported as 9.5 g/dL (reference range: 11.7-16.0 g/dL) on 06/10/2023 at 0109 EDT. Immature granulocytes (Bld) [#/Vol] [facility] Comment on above: DISREGARD Corrected result: Previously reported as 0.0 10*3/uL (reference range: <0.1 10*3/uL) on 06/10/2023 at 0109 EDT. Immature granulocytes/100 WBC (Bld) [facility] Comment on above: DISREGARD Corrected result: Previously reported as 0.2 % (reference range: 0.0-2.0 %) on 06/10/2023 at 0109 EDT. Lymphocytes (Bld) [#/Vol] [facility] Comment on above: DISREGARD Corrected result: Previously reported as 1.7 10*3/uL (reference range: 1.0-4.3 10*3/uL) on 06/10/2023 at 0109 EDT. Lymphocytes/100 WBC (Bld) [facility] Comment on above: DISREGARD Corrected result: Previously reported as 27.3 % (reference range: 15.0-45.0 %) on 06/10/2023 at 0109 EDT. MCH (RBC) [Entitic mass] [facility] Comment on above: DISREGARD Corrected result: Previously reported as 23.3 pg (reference range: 26.0-34.0 pg) on 06/10/2023 at 0109 EDT. MCHC (RBC) [Mass/Vol] [facility] Comment on above: DISREGARD Corrected result: Previously reported as 30.3 % (reference range: 30.5-36.0 %) on 06/10/2023 at 0109 EDT. MCV (RBC) [Entitic vol] [facility] Comment on above: DISREGARD Corrected result: Previously reported as 77.1 fL (reference range: 77.0-99.0 fL) on 06/10/2023 at 0109 EDT. Monocytes (Bld) [#/Vol] S [facility] Comment on above: DISREGARD Corrected result: Previously reported as 0.4 10*3/uL (reference range: 0.0-0.9 10*3/uL) on 06/10/2023 at 0109 EDT. Monocytes/100 WBC (Bld) [facility] Comment on above: DISREGARD Corrected result: Previously reported as 6.5 % (reference range: 5.0-13.0 %) on 06/10/2023 at 0109 EDT. Neutrophils (Bld) [#/Vol] [facility] Comment on above: DISREGARD Corrected result: Previously reported as 3.9 10*3/uL (reference range: 1.8-7.5 10*3/uL) on 06/10/2023 at 0109 EDT. Neutrophils/100 WBC (Bld) [facility] Comment on above: DISREGARD Corrected result: Previously reported as 62.3 % (reference range: 38.0-82.0 %) on 06/10/2023 at 0109 EDT. Nucleated RBC/100 WBC (Bld) [Ratio] [facility] Comment on above: Corrected result: Pr eviously reported as 0.0 /100 WBCs (reference range: 0.0-2.0 /100 WBCs) on 06/10/2023 at 0109 EDT. Platelet mean volume (Bld) [Entitic vol] [facility] Comment on above: DISREGARD Corrected result: Previously reported as 11.6 fL (reference range: 9.0-12.7 fL) on 06/10/2023 at 0109 EDT. Platelets (Bld) [#/Vol] [facility] Comment on above: DISREGARD Corrected result: Previously reported as 291 10*3/uL (reference range: 140-440 10*3/uL) on 06/10/2023 at 0109 EDT. RBC (Bld) [#/Vol] [facility] Comment on above: DISREGARD Corrected result: Previously reported as 4.07 10*6/uL (reference range: 3.80-5.20 10*6/uL) on 06/10/2023 at 0109 EDT. WBC (Bld) [#/Vol] [facility] Comment on above: DISREGARD Corrected result: Previously reported as 6.2 10*3/uL (reference range: 3.6-10.7 10*3/uL) on 06/10/2023 at 0109 EDT. DISREGARD. TPN Contamination. This is a modified report. Previous result was Hemogram + Auto diff (reference range: ) on 06/10/2023 at 0109 EDT [facility] Calcium.ionized [Moles/Vol]O rdered By: Kelly Arzola on 06-10-2023 Calcium.ionized (Bld) [Moles/Vol] 3.70 mg/dL Low 4.30 - 5.20 mg/dL [facility] Interpretation and review of laboratory results Abnormal [facility] PH, IONIZED CALCIUM 7.44 7.31 - 7.46 [facility] Calcium.ionized [Moles/Vol]o n 06-10-2023 Calcium.ionized (Bld) [Moles/Vol] [facility] Comment on above: DISREGARD Corrected result: Previously reported as 3.80 mg/dL (reference range: 4.30-5.20 mg/dL) on 06/10/2023 at 0107 EDT. PH, IONIZED CALCIUM [facility] Comment on above: DISREGARD Corrected result: Previously reported as 7.41 (reference range: 7.31-7.46) on 06/10/2023 at 0107 EDT. DISREGARD. TPN contamination. [facility] Laboratory - Chemistry and C hemistry - challengeOrdered By: Trupti Shafer on 06-10-2023 Potassium [Moles/Vol] 4.5 mmol/L 3.5 - 5.1 mmol/L [facility] Laboratory - Chemistry and C hemistry - challengeon 06-10-2023 Magnesium [Mass/Vol] 2.1 mg/dL 1.6 - 2 .3 mg/dL [facility] Laboratory - Drug toxicology on 06-10-2023 Zinc [Mass/Vol] 89.0 ug/dL 60.0 - 120.0 ug/dL [facility] Comment on above: INTERPRETIVE INFORMA TION: [...] developed and its performance characteristics determined by [employer] It has not been cleared or approved by the [place] Food and Drug Administration. This test was performed in a CLIA certified laboratory and is intended for clinical purposes. Performed By: [employer] [address] [place] [address] [employer]estock Buyer: Liborio Martinez MD, PhD CLIA Number: [id number] No Panel Informationon 06-09 [facility] Interpretation and review of laboratory results Normal [facility] Phosphate [Moles/Vol]on 05-23 Phosphate [Mass/Vol] 4.0 mg/dL 2.5 - 4 .5 mg/dL [facility] Potassium [Moles/Vol]Ordered By: Trupti Shafer on 06-10-2023 Interpretation and review of laboratory results Normal [facility] Basic metabolic 1998 panelon 06-09-2023 Anion gap [Moles/Vol] 6 mmol/L 3 - 13 mmol/L [facility] Calcium [Mass/Vol] 8.6 mg/dL 8.4 - 10. 4 mg/dL [facility] Chloride [Moles/Vol] 102 mmol/L 98 - 10 7 mmol/L [facility] CO2 [Moles/Vol] 29 mmol/L 22 - 30 mmol/L [facility] Creatinine [Mass/Vol] 0.42 mg/dL Low 0.52 - 1.04 mg/dL [facility] GFR/1.73 sq M.predicted MDRD (S/P/Bld) [Vol rate/Area] - PINF [facility] Comment on above: Calculation based on the Chronic Kidney Disease Epidemiology Collaboration (CKD-EPI) equation refit without adjustment for race Glucose [Mass/Vol] 102 mg/dL High 70 - 100 mg/dL [facility] Interpretation and review of laboratory results Abnormal [facility] Potassium [Moles/Vol] 3.7 mmol/L 3.5 - 5.1 mmol/L [facility] Sodium [Moles/Vol] 137 mmol/L 135 - 145 mmol/L [facility] Urea nitrogen [Mass/Vol] 9 mg/dL 7 - 17 mg/dL [facility] Anion gap [Moles/Vol] 4 mmol/L 3 - 13 mmol/L [facility] Calcium [Mass/Vol] 8.2 mg/dL Low 8.4 - 10. 4 mg/dL [facility] Chloride [Moles/Vol] 102 mmol/L 98 - 10 7 mmol/L [facility] CO2 [Moles/Vol] 31 mmol/L High 22 - 30 mmol/L [facility] Creatinine [Mass/Vol] 0.42 mg/dL Low 0.52 - 1.04 mg/dL [facility] GFR/1.73 sq M.predicted MDRD (S/P/Bld) [Vol rate/Area] - PINF [facility] Comment on above: Calculation based on the Chronic Kidney Disease Epidemiology Collaboration (CKD-EPI) equation refit without adjustment for race Glucose [Mass/Vol] 107 mg/dL High 70 - 100 mg/dL [facility] Potassium [Moles/Vol] 3.0 mmol/L Low 3.5 - 5.1 mmol/L [facility] Sodium [Moles/Vol] 138 mmol/L 135 - 145 mmol/L [facility] Urea nitrogen [Mass/Vol] 8 mg/dL 7 - 17 mg/dL [facility] CBC W Auto Differential pane l (Bld)on 06-09-2023 Basophils (Bld) [#/Vol] 0.0 10*3/uL 0.0 - 0.2 10*3/uL [facility] Basophils/100 WBC (Bld) 0.5 % 0.0 - 2.0 % [facility] Eosinophils (Bld) [#/Vol] 0.2 10*3/uL 0.0 - 0.5 10*3/uL [facility] Eosinophils/100 WBC (Bld) 3.2 % 0.0 - 6.0 % [facility] Erythrocyte distribution width (RBC) [Ratio] 19.3 % High 11.5 - 15.0 % [facility] Hematocrit (Bld) [Volume fraction] 32.2 % Low 35.0 - 47.0 % [facility] Hemoglobin (Bld) [Mass/Vol] 9.8 g/dL Low 11.7 - 16.0 g/dL [facility] [employer] Immature granulocytes (Bld) [#/Vol] 0.0 10*3/uL NINF - 0.1 10*3/uL [facility] Immature granulocytes/100 WBC (Bld) 0.5 % 0.0 - 2.0 % [facility] Interpretation and review of laboratory results Abnormal [facility] Lymphocytes (Bld) [#/Vol] 1.7 10*3/uL 1.0 - 4.3 10*3/uL [facility] Lymphocytes/100 WBC (Bld) 27.9 % 15.0 - 45.0 % [facility] MCH (RBC) [Entitic mass] 22.3 pg Low 26.0 - 34.0 pg [facility] MCHC (RBC) [Mass/Vol] 30.4 % Low 30.5 - 36.0 % [facility] MCV (RBC) [Entitic vol] 73.3 fL Low 77.0 - 99.0 fL [facility] Monocytes (Bld) [#/Vol] 0.5 10*3/uL 0.0 - 0.9 10*3/uL [facility] Monocytes/100 WBC (Bld) 8.2 % 5.0 - 13.0 % [facility] Neutrophils (Bld) [#/Vol] 3.6 10*3/uL 1.8 - 7.5 10*3/uL [facility] Neutrophils/100 WBC (Bld) 59.7 % 38.0 - 82.0 % [facility] Nucleated RBC/100 WBC (Bld) [Ratio] 0.0 % [facility] Platelet mean volume (Bld) [Entitic vol] 11.4 fL 9.0 - 12.7 fL [facility] Platelets (Bld) [#/Vol] 307 10*3/uL 140 - 440 10*3/uL [facility] RBC (Bld) [#/Vol] 4.39 10*6/uL 3.80 - 5.2 0 10*6/uL [facility] WBC (Bld) [#/Vol] 6.0 10*3/uL 3.6 - 10.7 10*3/uL [facility] Laboratory - Chemistry and C hemistry - challengeon 06-09-2023 Lipase [Catalytic activity/Vol] 1682 U/L High 23 - 300 U/L [facility] [employer] Magnesium [Mass/Vol] 2.2 mg/dL 1.6 - 2 .3 mg/dL [facility] [employer] Magnesium [Mass/Vol]on 06-08 Interpretation and review of laboratory results Normal [facility] [employer] No Panel InformationOrdered By: Stan Patel on 06-09-2023 P Aleppo 0 degrees [facility] [employer] Work Phone: HI Interval 0 ms [facility] [employer] Work Phone: QRS Aleppo 26 degrees [facility] [employer] Work Phone: QRSD Interval 89 ms [facility] [employer] Work Phone: QT Interval 327 ms [facility] [employer] Work Phone: QTC Interval 450 ms [facility] [employer] Work Phone: T Wave Aleppo -36 degrees [facility] [employer] Work Phone: [facility] [employer] Work Phone: No Panel Informationon 06-08 Atrial fibrillation Ventricular premature complex Borderline T abnormalities, diffuse leads Electronically Signed On 06-09-2023 16:12:33 EDT by Stan Patel CV Stan Bañuelos MD - 06/09/2023 IMPRESSION: Atrial fibrillation Ventricular premature complex Borderline T abnormalities, diffuse leads Electronically Signed On 06-09-2023 16:12:33 EDT by Stan Patel [facility] Interpretation and review of laboratory results Abnormal [facility] [employer] Phosphate [Moles/Vol]on 05-23 Phosphate [Mass/Vol] 4.8 mg/dL High 2.5 - 4 .5 mg/dL [facility] [employer] Vital signsOrdered By: Enedelia Patel on 06-09-2023 Heart rate 114 /min bpm [facility] [employer] Work Phone: Basic metabolic 1998 panelon 06-08-2023 Anion gap [Moles/Vol] 8 mmol/L 3 - 13 mmol/L [facility] [employer] Calcium [Mass/Vol] 7.9 mg/dL Low 8.4 - 10. 4 mg/dL [facility] Chloride [Moles/Vol] 104 mmol/L 98 - 10 7 mmol/L [facility] CO2 [Moles/Vol] 24 mmol/L 22 - 30 mmol/L [facility] Creatinine [Mass/Vol] 0.43 mg/dL Low 0.52 - 1.04 mg/dL [facility] GFR/1.73 sq M.predicted MDRD (S/P/Bld) [Vol rate/Area] - PINF [facility] Comment on above: Calculation based on the Chronic Kidney Disease Epidemiology Collaboration (CKD-EPI) equation refit without adjustment for race Glucose [Mass/Vol] 109 mg/dL High 70 - 100 mg/dL [facility] Interpretation and review of laboratory results Abnormal [facility] Potassium [Moles/Vol] 3.1 mmol/L Low 3.5 - 5.1 mmol/L [facility] Sodium [Moles/Vol] 137 mmol/L 135 - 145 mmol/L [facility] Urea nitrogen [Mass/Vol] 4 mg/dL Low 7 - 17 mg/dL [facility] CBC W Auto Differential pane l (Bld)on 06-08-2023 Basophils (Bld) [#/Vol] 0.0 10*3/uL 0.0 - 0.2 10*3/uL [facility] Basophils/100 WBC (Bld) 0.4 % 0.0 - 2.0 % [facility] Eosinophils (Bld) [#/Vol] 0.2 10*3/uL 0.0 - 0.5 10*3/uL [facility] Eosinophils/100 WBC (Bld) 3.0 % 0.0 - 6.0 % [facility] Erythrocyte distribution width (RBC) [Ratio] 19.1 % High 11.5 - 15.0 % [facility] Hematocrit (Bld) [Volume fraction] 35.9 % 35.0 - 47.0 % [facility] Hemoglobin (Bld) [Mass/Vol] 10.7 g/dL Low 11.7 - 16.0 g/dL [facility] Immature granulocytes (Bld) [#/Vol] 0.0 10*3/uL NINF - 0.1 10*3/uL [facility] Immature granulocytes/100 WBC (Bld) 0.5 % 0.0 - 2.0 % [facility] Interpretation and review of laboratory results Abnormal [facility] Lymphocytes (Bld) [#/Vol] 2.1 10*3/uL 1.0 - 4.3 10*3/uL [facility] Lymphocytes/100 WBC (Bld) 28.7 % 15.0 - 45.0 % [facility] MCH (RBC) [Entitic mass] 21.7 pg Low 26.0 - 34.0 pg [facility] MCHC (RBC) [Mass/Vol] 29.8 % Low 30.5 - 36.0 % [facility] MCV (RBC) [Entitic vol] 72.8 fL Low 77.0 - 99.0 fL [facility] Monocytes (Bld) [#/Vol] 0.6 10*3/uL 0.0 - 0.9 10*3/uL [facility] Monocytes/100 WBC (Bld) 7.8 % 5.0 - 13.0 % [facility] Neutrophils (Bld) [#/Vol] 4.3 10*3/uL 1.8 - 7.5 10*3/uL [facility] Neutrophils/100 WBC (Bld) 59.6 % 38.0 - 82.0 % [facility] Nucleated RBC/100 WBC (Bld) [Ratio] 0.0 % [facility] Platelet mean volume (Bld) [Entitic vol] 10.6 fL 9.0 - 12.7 fL [facility] Platelets (Bld) [#/Vol] 360 10*3/uL 140 - 440 10*3/uL [facility] RBC (Bld) [#/Vol] 4.93 10*6/uL 3.80 - 5.2 0 10*6/uL [facility] WBC (Bld) [#/Vol] 7.3 10*3/uL 3.6 - 10.7 10*3/uL [facility] Calcium.ionized [Moles/Vol]o n 06-08-2023 Calcium.ionized (Bld) [Moles/Vol] 3.20 mg/dL Low 4.30 - 5.20 mg/dL [facility] Interpretation and review of laboratory results Abnormal [facility] PH, IONIZED CALCIUM 7.48 High 7.31 - 7.46 [facility] Hepatic function 2000 panelo n 06-08-2023 Albumin [Mass/Vol] 3.0 g/dL Low 3.5 - 5.0 g/dL [facility] ALP [Catalytic activity/Vol] 60 U/L 38 - 126 U/L [facility] ALT [Catalytic activity/Vol] 175 U/L High 0 - 34 U/L [facility] AST [Catalytic activity/Vol] 121 U/L High 15 - 46 U/L [facility] Bilirubin [Mass/Vol] 1.6 mg/dL High 0.2 - 1 .3 mg/dL [facility] Bilirubin.conjugated [Mass/Vol] 0.0 mg/dL 0.0 - 0.3 mg/dL [facility] Protein [Mass/Vol] 6.1 g/dL Low 6.3 - 8.2 g/dL [facility] Laboratory - Chemistry and C hemistry - challengeon 06-08-2023 Glucose [Mass/Vol] 105 mg/dL High 70 - 100 mg/dL [facility] Glucose [Mass/Vol] 120 mg/dL High 70 - 100 mg/dL [facility] Lipase [Catalytic activity/Vol] 1786 U/L High 23 - 300 U/L [facility] Magnesium [Mass/Vol] 1.9 mg/dL 1.6 - 2 .3 mg/dL [facility] TSH Qn 4.370 m[IU]/[facility] Glucose [Mass/Vol] 106 mg/dL High 70 - 100 mg/dL [facility] Lipid 1996 panelon 4 Cholesterol [Mass/Vol] 114 mg/dL NINF - 200 mg/dL [facility] Cholesterol in HDL [Mass/Vol] 18 mg/dL Low 40 - 60 mg/dL [facility] Cholesterol in LDL [Mass/Vol] 68 mg/dL 0 - <100 [facility] Cholesterol.total/Gerardo sterol in HDL [Mass ratio] 6 {ratio} [facility] Comment on above: Ref Range: < 3 Low Risk for CHD 3-6 Mod Risk for CHD > 6 High Risk for CHD Interpretation and review of laboratory results Abnormal [facility] Triglyceride [Mass/Vol] 142 mg/dL NINF - 150 mg/dL [facility] No Panel Informationon 06-07 Interpretation and review of laboratory results Abnormal [facility] Performed by: [facility], [address] [place], [place] [id number] CLIA ID: [id number] [facility] Interpretation and review of laboratory results Abnormal [facility] Performed by: [facility], [address] [place] [id number] CLIA ID: [id number] [facility] Interpretation and review of laboratory results Abnormal [facility] Interpretation and review of laboratory results Normal [facility] Interpretation and review of laboratory results Abnormal [facility] [facility] Performed by: [facility], [address] [facility] [address] CLIA ID: [id number] [facility] Radiology Study observation (narrative) [facility] Radiology Study observation (narrative) [facility] Radiology Study observation (narrative) [facility]ef[facility] alth Phosphate [Moles/Vol]on 05-23 Phosphate [Mass/Vol] 3.0 mg/dL 2.5 - 4 .5 mg/dL [facility] TSH Qnon 06-08-2023 Interpretation and review of laboratory results Normal [facility] US Abdomenon 06-08-2023 1. Echogenic liver suggesting hepatic steatosis. Report Dictated on Electronically Signed By: Weston Medrano MD Electronically Signed Date/Time: 06/08/2023 11:22 AM [facility] Patient Name: ANNE MARIE BATES [...] due to overlying bowel gas Ascites: None [facility] Weston Medrano MD - 06/08/2023 Patient Name: ANNE MARIE PETERSON : 1995 [id number] Exam Date/Time: 06/08/2023 10:37 Procedure: US ABDOMEN [...] Signed Date/Time: 06/08/2023 11:22 AM EDT [facility] [employer] Radiology Study observation (narrative) [facility] alth US AbdomenOrdered By: Noemí Medrano on 06-08-2023 [employer] Work Phone: Basic metabolic 1998 panelon 06-07-2023 Anion gap [Moles/Vol] 9 mmol/L 3 - 13 mmol/L [facility] [employer] Calcium [Mass/Vol] 7.9 mg/dL Low 8.4 - 10. 4 mg/dL [facility] [employer] Chloride [Moles/Vol] 105 mmol/L 98 - 10 7 mmol/L [facility] [employer] CO2 [Moles/Vol] 25 mmol/L 22 - 30 mmol/L [facility] [employer] Creatinine [Mass/Vol] 0.45 mg/dL Low 0.52 - 1.04 mg/dL [facility] [employer] GFR/1.73 sq M.predicted MDRD (S/P/Bld) [Vol rate/Area] - PINF [facility] Comment on above: Calculation based on the Chronic Kidney Disease Epidemiology Collaboration (CKD-EPI) equation refit without adjustment for race Glucose [Mass/Vol] 87 mg/dL 70 - 100 mg/dL [facility] Interpretation and review of laboratory results Abnormal [facility] [employer] Potassium [Moles/Vol] 3.5 mmol/L 3.5 - 5.1 mmol/L [facility] [employer] Sodium [Moles/Vol] 140 mmol/L 135 - 145 mmol/L [facility] [employer] Urea nitrogen [Mass/Vol] 2 mg/dL Low 7 - 17 mg/dL [facility] [employer] CBC W Auto Differential pane l (Bld)Ordered By: Odette Ott on 06-07-2023 Basophils (Bld) [#/Vol] 0.0 10*3/uL 0.0 - 0.2 10*3/uL [facility] Basophils/100 WBC (Bld) 0.5 % 0.0 - 2.0 % [facility] [employer] Eosinophils (Bld) [#/Vol] 0.2 10*3/uL 0.0 - 0.5 10*3/uL [facility] Eosinophils/100 WBC (Bld) 3.4 % 0.0 - 6.0 % [facility] Erythrocyte distribution width (RBC) [Ratio] 19.4 % High 11.5 - 15.0 % [facility] Hematocrit (Bld) [Volume fraction] 35.8 % 35.0 - 47.0 % [facility] Hemoglobin (Bld) [Mass/Vol] 10.8 g/dL Low 11.7 - 16.0 g/dL [facility] [employer] Immature granulocytes (Bld) [#/Vol] 0.0 10*3/uL NINF - 0.1 10*3/uL [facility] [employer] Immature granulocytes/100 WBC (Bld) 0.5 % 0.0 - 2.0 % [facility] Interpretation and review of laboratory results Abnormal [facility] Lymphocytes (Bld) [#/Vol] 2.0 10*3/uL 1.0 - 4.3 10*3/uL [facility] Lymphocytes/100 WBC (Bld) 30.3 % 15.0 - 45.0 % [facility] MCH (RBC) [Entitic mass] 22.1 pg Low 26.0 - 34.0 pg [facility] MCHC (RBC) [Mass/Vol] 30.2 % Low 30.5 - 36.0 % [facility] MCV (RBC) [Entitic vol] 73.4 fL Low 77.0 - 99.0 fL [facility] Monocytes (Bld) [#/Vol] 0.6 10*3/uL 0.0 - 0.9 10*3/uL [facility] Monocytes/100 WBC (Bld) 8.5 % 5.0 - 13.0 % [facility] Neutrophils (Bld) [#/Vol] 3.7 10*3/uL 1.8 - 7.5 10*3/uL [facility] Neutrophils/100 WBC (Bld) 56.8 % 38.0 - 82.0 % [facility] Nucleated RBC/100 WBC (Bld) [Ratio] 0.0 % [facility] Platelet mean volume (Bld) [Entitic vol] 11.6 fL 9.0 - 12.7 fL [facility] Platelets (Bld) [#/Vol] 398 10*3/uL 140 - 440 10*3/uL [facility] RBC (Bld) [#/Vol] 4.88 10*6/uL 3.80 - 5.2 0 10*6/uL [facility] WBC (Bld) [#/Vol] 6.6 10*3/uL 3.6 - 10.7 10*3/uL [facility] Comprehensive metabolic 1998 panelon 06-07-2023 Albumin [Mass/Vol] 3.5 g/dL 3.5 - 5.0 g/dL [facility] ALP [Catalytic activity/Vol] 63 U/L 38 - 126 U/L [facility] ALT [Catalytic activity/Vol] 237 U/L High 0 - 34 U/L [facility] Anion gap [Moles/Vol] 11 mmol/L 3 - 13 mmol/L [facility] AST [Catalytic activity/Vol] 157 U/L High 15 - 46 U/L [facility] Bilirubin [Mass/Vol] 1.7 mg/dL High 0.2 - 1 .3 mg/dL [facility] Calcium [Mass/Vol] 8.4 mg/dL 8.4 - 10. 4 mg/dL [facility] Chloride [Moles/Vol] 107 mmol/L 98 - 10 7 mmol/L [facility] CO2 [Moles/Vol] 23 mmol/L 22 - 30 mmol/L [facility] Creatinine [Mass/Vol] 0.53 mg/dL 0.52 - 1.04 mg/dL [facility] GFR/1.73 sq M.predicted MDRD (S/P/Bld) [Vol rate/Area] - PINF [facility] Comment on above: Calculation based on the Chronic Kidney Disease Epidemiology Collaboration (CKD-EPI) equation refit without adjustment for race Glucose [Mass/Vol] 86 mg/dL 70 - 100 mg/dL [facility] Interpretation and review of laboratory results Abnormal [facility] Potassium [Moles/Vol] 3.3 mmol/L Low 3.5 - 5.1 mmol/L [facility] Protein [Mass/Vol] 7.0 g/dL 6.3 - 8.2 g/dL [facility] Sodium [Moles/Vol] 141 mmol/L 135 - 145 mmol/L [facility] Urea nitrogen [Mass/Vol] 3 mg/dL Low 7 - 17 mg/dL [facility] Laboratory - Chemistry and C hemistry - challengeon 06-07-2023 Glucose [Mass/Vol] 94 mg/dL 70 - 100 mg/dL [facility] Glucose [Mass/Vol] 72 mg/dL 70 - 100 mg/dL [facility] Glucose [Mass/Vol] 81 mg/dL 70 - 100 mg/dL [facility] Lipase [Catalytic activity/Vol] 2085 U/L High 23 - 300 U/L [facility] Magnesium [Mass/Vol] 1.5 mg/dL Low 1.6 - 2 .3 mg/dL [facility] Laboratory - Chemistry and C hemistry - challengeOrdered By: Shirley Cartagena on 06-07-2023 Triglyceride [Mass/Vol] 103 mg/dL NINF - 150 mg/dL [facility] Lipase [Catalytic activity/V ol]on 06-07-2023 Interpretation and review of laboratory results Abnormal [facility] Magnesium [Mass/Vol]on 06-06 Interpretation and review of laboratory results Abnormal [facility] No Panel Informationon 06-06 Interpretation and review of laboratory results Normal [facility] by: [facility], [address] [place] [id number] CLIA ID: [id number] [facility] Interpretation and review of laboratory results Normal [facility] Performed by: [facility], [address] [place] [address] CLIA ID: [id number] [facility] Suze Cuba MD 06/07/2023 7:12 PM PICC [...] lumen Catheter size: 5 Fr Lot #: [id number] Trimmed at (cm): 53 Inserted at (cm): 53 Ultrasound guidance: Yes Post-procedure: Post-procedure: Antimicrobial dressing applied and securement device Description/Findings: Flushes easily and blood returned Estimated blood loss: < 5 mL Specify complication(s): No apparent complications Follow-up chest x-ray: Ordered General Comments: PICC tip deep in RA on CXR, pulled back 4 cm. [facility] Interpretation and review of laboratory results Normal [facility] Performed by: [facility], [address] [place], [place] [id number] CLIA ID: [id number] [facility] Radiology Study observation (narrative) [facility] Radiology Study observation (narrative) [facility] Phosphate [Moles/Vol]on 05-23 Interpretation and review of laboratory results Normal [facility] Phosphate [Mass/Vol] 2.6 mg/dL 2.5 - 4 .5 mg/dL [facility] Interpretation and review of laboratory results Normal [facility] Phosphate [Mass/Vol] 3.5 mg/dL 2.5 - 4 .5 mg/dL [facility] Triglyceride [Mass/Vol]Order ed By: Shirley Cartagena on 06-07-2023 Interpretation and review of laboratory results Normal [facility] XR Chest Single viewon 06-06 FINDINGS/IMPRESSION: Limitations: [...] Electronically Signed Date/Time: 06/07/2023 3:41 PM EDT [facility] [employer] Patient Name: ANNE MARIE BATES : 1995 Exam Date/Time: 06/07/2023 15:09 Procedure: XR CHEST 1 VIEW Ordering Provider: LEAL LOGAN Reason For Exam: line placement CHEST - PORTABLE: CLINICAL INDICATION: PICC line placement. TECHNIQUE: Portable AP COMPARISON: Correlations made to CT abdomen pelvis 06/03/2023. [facility] [employer] Larisa Kennedy MD - 06/07/2023 Patient Name: ANNE MARIE PETERSON : 1995 Exam Date/Time: 06/07/2023 15:09 Procedure: [...] Electronically Signed Date/Time: 06/07/2023 3:41 PM EDT [facility] Radiology Study observation (narrative) [facility] XR Chest Single viewOrdered By: Larisa Kennedy on 06-07-2023 [facility] Work Phone: Bacteria identified Cx Nom ( U)Ordered By: Zeke Arcos on 06-06-2023 Interpretation and review of laboratory results Abnormal [facility] CBC W Auto Differential pane l (Bld)Ordered By: Johana Serrato on 06-06-2023 Basophils (Bld) [#/Vol] 0.0 10*3/uL 0.0 - 0.2 10*3/uL [facility] Basophils/100 WBC (Bld) 0.3 % 0.0 - 2.0 % [facility] Eosinophils (Bld) [#/Vol] 0.2 10*3/uL 0.0 - 0.5 10*3/uL [facility] Eosinophils/100 WBC (Bld) 2.5 % 0.0 - 6.0 % [facility] [employer] Erythrocyte distribution width (RBC) [Ratio] 19.6 % High 11.5 - 15.0 % [facility] Hematocrit (Bld) [Volume fraction] 36.7 % 35.0 - 47.0 % [facility] Hemoglobin (Bld) [Mass/Vol] 11.2 g/dL Low 11.7 - 16.0 g/dL [facility] Immature granulocytes (Bld) [#/Vol] 0.0 10*3/uL NINF - 0.1 10*3/uL [facility] Immature granulocytes/100 WBC (Bld) 0.5 % 0.0 - 2.0 % [facility] Interpretation and review of laboratory results Abnormal [facility] Lymphocytes (Bld) [#/Vol] 1.6 10*3/uL 1.0 - 4.3 10*3/uL [facility] Lymphocytes/100 WBC (Bld) 23.8 % 15.0 - 45.0 % [facility] MCH (RBC) [Entitic mass] 22.1 pg Low 26.0 - 34.0 pg [facility] MCHC (RBC) [Mass/Vol] 30.5 % 30.5 - 36.0 % [facility] MCV (RBC) [Entitic vol] 72.4 fL Low 77.0 - 99.0 fL [facility] Monocytes (Bld) [#/Vol] 0.6 10*3/uL 0.0 - 0.9 10*3/uL [facility] Monocytes/100 WBC (Bld) 8.5 % 5.0 - 13.0 % [facility] Neutrophils (Bld) [#/Vol] 4.2 10*3/uL 1.8 - 7.5 10*3/uL [facility] Neutrophils/100 WBC (Bld) 64.4 % 38.0 - 82.0 % [facility] Nucleated RBC/100 WBC (Bld) [Ratio] 0.0 % [facility] [employer] Platelet mean volume (Bld) [Entitic vol] 11.2 fL 9.0 - 12.7 fL [facility] Platelets (Bld) [#/Vol] 430 10*3/uL 140 - 440 10*3/uL [facility] RBC (Bld) [#/Vol] 5.07 10*6/uL 3.80 - 5.2 0 10*6/uL [facility] WBC (Bld) [#/Vol] 6.5 10*3/uL 3.6 - 10.7 10*3/uL [facility] Comprehensive metabolic 1998 panelon 06-06-2023 Albumin [Mass/Vol] 3.2 g/dL Low 3.5 - 5.0 g/dL [facility] ALP [Catalytic activity/Vol] 53 U/L 38 - 126 U/L [facility] ALT [Catalytic activity/Vol] 187 U/L High 0 - 34 U/L [facility] Anion gap [Moles/Vol] 11 mmol/L 3 - 13 mmol/L [facility] AST [Catalytic activity/Vol] 134 U/L High 15 - 46 U/L [facility] Bilirubin [Mass/Vol] 1.7 mg/dL High 0.2 - 1 .3 mg/dL [facility] Calcium [Mass/Vol] 8.3 mg/dL Low 8.4 - 10. 4 mg/dL [facility] Chloride [Moles/Vol] 107 mmol/L 98 - 10 7 mmol/L [facility] CO2 [Moles/Vol] 21 mmol/L Low 22 - 30 mmol/L [facility] Creatinine [Mass/Vol] 0.52 mg/dL 0.52 - 1.04 mg/dL [facility] GFR/1.73 sq M.predicted MDRD (S/P/Bld) [Vol rate/Area] - PINF [facility] Comment on above: Calculation based on the Chronic Kidney Disease Epidemiology Collaboration (CKD-EPI) equation refit without adjustment for race Glucose [Mass/Vol] 83 mg/dL 70 - 100 mg/dL [facility] Potassium [Moles/Vol] 3.2 mmol/L Low 3.5 - 5.1 mmol/L [facility] Protein [Mass/Vol] 6.2 g/dL Low 6.3 - 8.2 g/dL [facility] Sodium [Moles/Vol] 139 mmol/L 135 - 145 mmol/L [facility] Urea nitrogen [Mass/Vol] 2 mg/dL Low 7 - 17 mg/dL [facility] Laboratory - Chemistry and C hemistry - challengeon 06-06-2023 Magnesium [Mass/Vol] 1.6 mg/dL 1.6 - 2 .3 mg/dL [facility] Lipase [Catalytic activity/Vol] 1936 U/L High 23 - 300 U/L [facility] Laboratory - Microbiology an d Antimicrobial susceptibilityOrdered By: Zeke Arcos on 06-06-2023 Bacteria identified Cx Nom (U) 10,000-50,000 CFU/mL Streptococcus agalactiae (Group B) Abnormal [facility] Comment on above: Susceptibility testi ng not performed. Beta-hemolytic streptococci are universally susceptible to beta-lactam antibiotics. If patient is beta-lactam allergic, providers should call the [facility] Microbiology Laboratory ([phone]) within 3 days to request susceptibility testing. Bacteria identified Cx Nom (U) >100,000 CFU/mL Aerococcus urinae Abnormal [facility] Comment on above: Susceptibility testi ng not routinely performed except on isolates from blood culture. Aerococcus species are generally susceptible to beta-lactams. Resistance to sulfonamides is common in Aerococcus urinae. Providers should call the [facility] obiology Laboratory ([phone]) within 3 days if susceptibility testing is required. MR Abdomen WO contraston Diffuse hepatic steatosis and mild hepatomegaly. Mildly prominent gastrohepatic ligament lymph node. Report Dictated on Electronically Signed By: Karlene Acosta MD Electronically Signed Date/Time: 06/06/2023 4:23 PM EDT [facility] Patient Name: ANNE MARIE BATES [...] structures: Mild degenerative change of the spine. [facility] Karlene Acosta M D - 06/06/2023 Patient Name: ANNE MARIE PETERSON : 1995 [id number] Exam Date/Time: 06/06/2023 15:26 Procedure: MR ABDOMEN [...] Electronically Signed Date/Time: 06/06/2023 4:23 PM EDT [facility] Radiology Study observation (narrative) [facility] alth MR Abdomen WO contrastOrdere d By: Karlene Acosta on 06-06-2023 [facility] [employer] Work Phone: Magnesium [Mass/Vol]on 06-05 Interpretation and review of laboratory results Normal [facility] No Panel Informationon 06-05 Interpretation and review of laboratory results Abnormal [facility] CBC W Auto Differential pane l (Bld)Ordered By: [place] on 06-05-2023 Basophils (Bld) [#/Vol] 0.0 10*3/uL 0.0 - 0.2 10*3/uL [facility] [employer] Basophils/100 WBC (Bld) 0.3 % 0.0 - 2.0 % [facility] [employer] Eosinophils (Bld) [#/Vol] 0.2 10*3/uL 0.0 - 0.5 10*3/uL [facility] [employer] Eosinophils/100 WBC (Bld) 2.2 % 0.0 - 6.0 % [facility] [employer] Erythrocyte distribution width (RBC) [Ratio] 18.9 % High 11.5 - 15.0 % [facility] [employer] Hematocrit (Bld) [Volume fraction] 35.4 % 35.0 - 47.0 % [facility] [employer] Hemoglobin (Bld) [Mass/Vol] 10.7 g/dL Low 11.7 - 16.0 g/dL [facility] [employer] Immature granulocytes (Bld) [#/Vol] 0.1 10*3/uL High NINF - 0.1 10*3/uL [facility] Immature granulocytes/100 WBC (Bld) 0.7 % 0.0 - 2.0 % [facility] Interpretation and review of laboratory results Abnormal [facility] Lymphocytes (Bld) [#/Vol] 1.5 10*3/uL 1.0 - 4.3 10*3/uL [facility] Lymphocytes/100 WBC (Bld) 21.1 % 15.0 - 45.0 % [facility] MCH (RBC) [Entitic mass] 22.3 pg Low 26.0 - 34.0 pg [facility] MCHC (RBC) [Mass/Vol] 30.2 % Low 30.5 - 36.0 % [facility] MCV (RBC) [Entitic vol] 73.8 fL Low 77.0 - 99.0 fL [facility] Monocytes (Bld) [#/Vol] 0.6 10*3/uL 0.0 - 0.9 10*3/uL [facility] Monocytes/100 WBC (Bld) 7.6 % 5.0 - 13.0 % [facility] Neutrophils (Bld) [#/Vol] 4.9 10*3/uL 1.8 - 7.5 10*3/uL [facility] Neutrophils/100 WBC (Bld) 68.1 % 38.0 - 82.0 % [facility] Nucleated RBC/100 WBC (Bld) [Ratio] 0.0 % [facility] Platelet mean volume (Bld) [Entitic vol] 10.5 fL 9.0 - 12.7 fL [facility] Platelets (Bld) [#/Vol] 423 10*3/uL 140 - 440 10*3/uL [facility] RBC (Bld) [#/Vol] 4.80 10*6/uL 3.80 - 5.2 0 10*6/uL [facility] WBC (Bld) [#/Vol] 7.2 10*3/uL 3.6 - 10.7 10*3/uL [facility] Comprehensive metabolic 1998 panelon 06-05-2023 Albumin [Mass/Vol] 3.7 g/dL 3.5 - 5.0 g/dL [facility] ALP [Catalytic activity/Vol] 59 U/L 38 - 126 U/L [facility] ALT [Catalytic activity/Vol] 166 U/L High 0 - 34 U/L [facility] Anion gap [Moles/Vol] 14 mmol/L High 3 - 13 mmol/L [facility] AST [Catalytic activity/Vol] 131 U/L High 15 - 46 U/L [facility] Bilirubin [Mass/Vol] 2.0 mg/dL High 0.2 - 1 .3 mg/dL [facility] Calcium [Mass/Vol] 8.7 mg/dL 8.4 - 10. 4 mg/dL [facility] Chloride [Moles/Vol] 106 mmol/L 98 - 10 7 mmol/L [facility] CO2 [Moles/Vol] 22 mmol/L 22 - 30 mmol/L [facility] Creatinine [Mass/Vol] 0.51 mg/dL Low 0.52 - 1.04 mg/dL [facility] GFR/1.73 sq M.predicted MDRD (S/P/Bld) [Vol rate/Area] - PINF [facility] Comment on above: Calculation based on the Chronic Kidney Disease Epidemiology Collaboration (CKD-EPI) equation refit without adjustment for race Glucose [Mass/Vol] 89 mg/dL 70 - 100 mg/dL [facility] Interpretation and review of laboratory results Abnormal [facility] Potassium [Moles/Vol] 3.0 mmol/L Low 3.5 - 5.1 mmol/L [facility] Protein [Mass/Vol] 7.3 g/dL 6.3 - 8.2 g/dL [facility] Sodium [Moles/Vol] 141 mmol/L 135 - 145 mmol/L [facility] Urea nitrogen [Mass/Vol] mg/dL Low 7 - 17 mg/dL [facility] Laboratory - Chemistry and C hemistry - challengeon 06-05-2023 Lipase [Catalytic activity/Vol] 3199 U/L High 23 - 300 U/L [facility] Magnesium [Mass/Vol] 1.6 mg/dL 1.6 - 2 .3 mg/dL [facility] Lipase [Catalytic activity/V ol]on 06-05-2023 Interpretation and review of laboratory results Abnormal [facility] Magnesium [Mass/Vol]on 06-04 Interpretation and review of laboratory results Normal [facility] Bilirubin.indirect [Mass/Vol ]on 06-04-2023 Bilirubin.conjugated [Mass/Vol] 0.0 mg/dL 0.0 - 0.3 mg/dL [facility] Interpretation and review of laboratory results Normal [facility] CBC W Auto Differential pane l (Bld)Ordered By: Oral Junior on 06-04-2023 Basophils (Bld) [#/Vol] 0.0 10*3/uL 0.0 - 0.2 10*3/uL [facility] Basophils/100 WBC (Bld) 0.4 % 0.0 - 2.0 % [facility] Eosinophils (Bld) [#/Vol] 0.2 10*3/uL 0.0 - 0.5 10*3/uL [facility] Eosinophils/100 WBC (Bld) 2.1 % 0.0 - 6.0 % [facility] Erythrocyte distribution width (RBC) [Ratio] 18.5 % High 11.5 - 15.0 % [facility] Hematocrit (Bld) [Volume fraction] 34.2 % Low 35.0 - 47.0 % [facility] Hemoglobin (Bld) [Mass/Vol] 10.3 g/dL Low 11.7 - 16.0 g/dL [facility] Immature granulocytes (Bld) [#/Vol] 0.1 10*3/uL High NINF - 0.1 10*3/uL [facility] Immature granulocytes/100 WBC (Bld) 0.7 % 0.0 - 2.0 % [facility] Interpretation and review of laboratory results Abnormal [facility] Lymphocytes (Bld) [#/Vol] 1.7 10*3/uL 1.0 - 4.3 10*3/uL [facility] Lymphocytes/100 WBC (Bld) 21.5 % 15.0 - 45.0 % [facility] MCH (RBC) [Entitic mass] 21.9 pg Low 26.0 - 34.0 pg [facility] MCHC (RBC) [Mass/Vol] 30.1 % Low 30.5 - 36.0 % [facility] MCV (RBC) [Entitic vol] 72.6 fL Low 77.0 - 99.0 fL [facility] Monocytes (Bld) [#/Vol] 0.8 10*3/uL 0.0 - 0.9 10*3/uL [facility] Monocytes/100 WBC (Bld) 9.6 % 5.0 - 13.0 % [facility] Neutrophils (Bld) [#/Vol] 5.3 10*3/uL 1.8 - 7.5 10*3/uL [facility] Neutrophils/100 WBC (Bld) 65.7 % 38.0 - 82.0 % [facility] Nucleated RBC/100 WBC (Bld) [Ratio] 0.0 % [facility] Platelet mean volume (Bld) [Entitic vol] 10.6 fL 9.0 - 12.7 fL [facility] Platelets (Bld) [#/Vol] 414 10*3/uL 140 - 440 10*3/uL [facility] RBC (Bld) [#/Vol] 4.71 10*6/uL 3.80 - 5.2 0 10*6/uL [facility] WBC (Bld) [#/Vol] 8.1 10*3/uL 3.6 - 10.7 10*3/uL [facility] Comprehensive metabolic 1998 panelon 06-04-2023 Albumin [Mass/Vol] 3.7 g/dL 3.5 - 5.0 g/dL [facility] ALP [Catalytic activity/Vol] 55 U/L 38 - 126 U/L [facility] ALT [Catalytic activity/Vol] 127 U/L High 0 - 34 U/L [facility] Anion gap [Moles/Vol] 14 mmol/L High 3 - 13 mmol/L [facility] AST [Catalytic activity/Vol] 111 U/L High 15 - 46 U/L [facility] Bilirubin [Mass/Vol] 1.8 mg/dL High 0.2 - 1 .3 mg/dL [facility] Calcium [Mass/Vol] 8.4 mg/dL 8.4 - 10. 4 mg/dL [facility] Chloride [Moles/Vol] 106 mmol/L 98 - 10 7 mmol/L [facility] CO2 [Moles/Vol] 18 mmol/L Low 22 - 30 mmol/L [facility] Creatinine [Mass/Vol] 0.55 mg/dL 0.52 - 1.04 mg/dL [facility] GFR/1.73 sq M.predicted MDRD (S/P/Bld) [Vol rate/Area] - PINF [facility] Comment on above: Calculation based on the Chronic Kidney Disease Epidemiology Collaboration (CKD-EPI) equation refit without adjustment for race Glucose [Mass/Vol] 99 mg/dL 70 - 100 mg/dL [facility] Interpretation and review of laboratory results Abnormal [facility] Potassium [Moles/Vol] 3.2 mmol/L Low 3.5 - 5.1 mmol/L [facility] Protein [Mass/Vol] 7.3 g/dL 6.3 - 8.2 g/dL [facility] Sodium [Moles/Vol] 138 mmol/L 135 - 145 mmol/L [facility] Urea nitrogen [Mass/Vol] mg/dL Low 7 - 17 mg/dL [facility] Laboratory - Chemistry and C hemistry - challengeon 06-04-2023 Lipase [Catalytic activity/Vol] 3319 U/L High 23 - 300 U/L [facility] Magnesium [Mass/Vol] 1.6 mg/dL 1.6 - 2 .3 mg/dL [facility] Lipase [Catalytic activity/V ol]on 06-04-2023 Interpretation and review of laboratory results Abnormal [facility] Magnesium [Mass/Vol]on 06-03 Interpretation and review of laboratory results Normal [facility] RF Upper gastrointestinal tr act and Small bowel Single view W contrast Rex 06-04-2023 Mild narrowing of the gastrojejunostomy. Consider endoscopy. Small hiatal hernia without gastroesophageal reflux. Report Dictated on Electronically Signed By: Liborio Aiken MD Electronically Signed Date/Time: 06/04/2023 11:30 AM [facility] 1995 [id number] Exam Date/Time: 06/04/2023 10:47 Procedure: FL UPPER [...] partially visualized proximal jejunal loops are unremarkable. [facility] Liborio Aiken MD - 06/04/2023 Patient Name: [...] Electronically Signed Date/Time: 06/04/2023 11:30 AM EDT [facility] Radiology Study observation (narrative) [facility] RF Upper gastrointestinal tr act and Small bowel Single view W contrast POOrdered By: Liborio Aiken on 06-04-2023 [facility] [employer] CBC W Auto Differential pane l (Bld)Ordered By: Barbara Isidro on 06-03-2023 Basophils (Bld) [#/Vol] 0.0 10*3/uL 0.0 - 0.2 10*3/uL [facility] Basophils/100 WBC (Bld) 0.4 % 0.0 - 2.0 % [facility] Eosinophils (Bld) [#/Vol] 0.1 10*3/uL 0.0 - 0.5 10*3/uL [facility] Eosinophils/100 WBC (Bld) 1.7 % 0.0 - 6.0 % [facility] Erythrocyte distribution width (RBC) [Ratio] 18.9 % High 11.5 - 15.0 % [facility] Hematocrit (Bld) [Volume fraction] 39.4 % 35.0 - 47.0 % [facility] Hemoglobin (Bld) [Mass/Vol] 11.8 g/dL 11.7 - 16.0 g/dL [facility] Immature granulocytes (Bld) [#/Vol] 0.1 10*3/uL High NINF - 0.1 10*3/uL [facility] Health Immature granulocytes/100 WBC (Bld) 0.7 % 0.0 - 2.0 % [facility] Interpretation and review of laboratory results Abnormal [facility] Lymphocytes (Bld) [#/Vol] 2.0 10*3/uL 1.0 - 4.3 10*3/uL [facility] Lymphocytes/100 WBC (Bld) 24.7 % 15.0 - 45.0 % [facility] MCH (RBC) [Entitic mass] 21.9 pg Low 26.0 - 34.0 pg [facility] MCHC (RBC) [Mass/Vol] 29.9 % Low 30.5 - 36.0 % [facility] MCV (RBC) [Entitic vol] 73.1 fL Low 77.0 - 99.0 fL [facility] Monocytes (Bld) [#/Vol] 0.7 10*3/uL 0.0 - 0.9 10*3/uL [facility] Monocytes/100 WBC (Bld) 8.4 % 5.0 - 13.0 % [facility] Neutrophils (Bld) [#/Vol] 5.2 10*3/uL 1.8 - 7.5 10*3/uL [facility] Neutrophils/100 WBC (Bld) 64.1 % 38.0 - 82.0 % [facility] Nucleated RBC/100 WBC (Bld) [Ratio] 0.0 % [facility] Platelet mean volume (Bld) [Entitic vol] 10.9 fL 9.0 - 12.7 fL [facility] Platelets (Bld) [#/Vol] 522 10*3/uL High 140 - 440 10*3/uL [facility] RBC (Bld) [#/Vol] 5.39 10*6/uL High 3.80 - 5.2 0 10*6/uL [facility] WBC (Bld) [#/Vol] 8.1 10*3/uL 3.6 - 10.7 10*3/uL [facility] CT Abdomen and Pelvis W cont rast Christophe 06-03-2023 1. No acute process. Report Dictated on Electronically Signed By: Giorgio Sofia MD Electronically Signed Date/Time: 06/03/2023 9:12 PM EDT [employer] [facility] Patient Name: ANNE MARIE BATES : 1995 Exam Date/Time: 06/03/2023 21:03 Procedure: [...] fracture or destructive osseous lesion is identified. [facility] [employer] Giorgio Sofia M D - 06/03/2023 Patient Name: ANNE MARIE PETERSON: 1995 [facility]#: [id number] Exam Date/Time: 06/03/2023 21:03 Procedure: CT ABDOMEN [...] Electronically Signed Date/Time: 06/03/2023 9:12 PM EDT [facility] Radiology Study observation (narrative) [facility] alth CT Abdomen and Pelvis W cont rast IVOrdered By: Girogio Sofia on 06-03-2023 [facility] [employer] Work Phone: Comprehensive metabolic 1998 panelon 06-03-2023 Albumin [Mass/Vol] 4.2 g/dL 3.5 - 5.0 g/dL [facility] [employer] ALP [Catalytic activity/Vol] 65 U/L 38 - 126 U/L [facility] ALT [Catalytic activity/Vol] 135 U/L High 0 - 34 U/L [facility] Anion gap [Moles/Vol] 16 mmol/L High 3 - 13 mmol/L [facility] AST [Catalytic activity/Vol] 106 U/L High 15 - 46 U/L [facility] Bilirubin [Mass/Vol] 2.0 mg/dL High 0.2 - 1 .3 mg/dL [facility] Calcium [Mass/Vol] 8.9 mg/dL 8.4 - 10. 4 mg/dL [facility] Chloride [Moles/Vol] 104 mmol/L 98 - 10 7 mmol/L [facility] CO2 [Moles/Vol] 19 mmol/L Low 22 - 30 mmol/L [facility] Creatinine [Mass/Vol] 0.57 mg/dL 0.52 - 1.04 mg/dL [facility] GFR/1.73 sq M.predicted MDRD (S/P/Bld) [Vol rate/Area] - PINF [facility] Comment on above: Calculation based on the Chronic Kidney Disease Epidemiology Collaboration (CKD-EPI) equation refit without adjustment for race Glucose [Mass/Vol] 103 mg/dL High 70 - 100 mg/dL [facility] Interpretation and review of laboratory results Abnormal [facility] Potassium [Moles/Vol] 3.4 mmol/L Low 3.5 - 5.1 mmol/L [facility] Protein [Mass/Vol] 8.3 g/dL High 6.3 - 8.2 g/dL [facility] Sodium [Moles/Vol] 139 mmol/L 135 - 145 mmol/L [facility] Urea nitrogen [Mass/Vol] mg/dL Low 7 - 17 mg/dL [facility] Laboratory - Chemistry and C hemistry - challengeon 06-03-2023 HCG.beta subunit Qn Females <=5 mIU/mL [facility] Lipase [Catalytic activity/Vol] 3563 U/L High 23 - 300 U/L [facility] Lipase [Catalytic activity/V ol]on 06-03-2023 Interpretation and review of laboratory results Abnormal [facility] No Panel Informationon 06-02 Values in should [...] or monitor tumors or gestational trophoblastic disease. [facility] Urinalysis complete panel (U )on 06-03-2023 Bacteria LM.HPF (Urine sed) [#/Area] Many Abnormal Negative /HPF [facility] Bilirubin Ql (U) 1 mg/dL Abnormal Negative [facility] alth Clarity (U) Extra Turbid Abnormal Clear [facility] h Color (U) Yellow Lt. Yellow [facility] Epithelial cells.squamous LM.HPF (Urine sed) [#/Area] 6-[address] [facility] Glucose Ql (U) Normal Normal (<70) mg/dL [facility] Hemoglobin Ql (U) 0.5 mg/dL Abnormal Negative [facility] ealth Hyaline casts Auto (Urine sed) [#/Area] 6-10 Abnormal Negative /LPF [facility] Interpretation and review of laboratory results Abnormal [facility] Ketones (U) [Mass/Vol] mg/dL Abnormal Negat harika mg/dL [facility] Leukocyte esterase Test strip Ql (U) 250 Abnormal Negative Krish/uL [facility] Mucus LM.HPF (Urine sed) [#/Area] Many Abnormal Negative /LPF [facility] Nitrite Ql (U) Negative Negative [facility] th pH (U) 6.0 [pH] 5.0 - 8.0 pH [facility] Protein (U) [Mass/Vol] 100 mg/dL Abnormal Negative [facility] [place] RBC LM.HPF (Urine sed) [#/Area] 3-5 Abnormal [facility] Specific gravity (U) [Rel density] 1.020 1.005 - 1.030 [facility] Urobilinogen (U) [Mass/Vol] 8 mg/dL Abnormal Normal (0-1) [facility] WBC LM.HPF (Urine sed) [#/Area] 11-25 Abnormal [facility] Basic metabolic 1998 panelon 05-21-2023 Anion gap [Moles/Vol] 12 mmol/L 3 - 13 mmol/L [facility] Calcium [Mass/Vol] 8.5 mg/dL 8.4 - 10. 4 mg/dL [facility] Chloride [Moles/Vol] 104 mmol/L 98 - 10 7 mmol/L [facility] CO2 [Moles/Vol] 19 mmol/L Low 22 - 30 mmol/L [facility] Creatinine [Mass/Vol] 0.47 mg/dL Low 0.52 - 1.04 mg/dL [facility] GFR/1.73 sq M.predicted MDRD (S/P/Bld) [Vol rate/Area] - PINF [facility] Comment on above: Calculation based on the Chronic Kidney Disease Epidemiology Collaboration (CKD-EPI) equation refit without adjustment for race Glucose [Mass/Vol] 78 mg/dL 70 - 100 mg/dL [facility] Interpretation and review of laboratory results Abnormal [facility] Potassium [Moles/Vol] 3.1 mmol/L Low 3.5 - 5.1 mmol/L [facility] Sodium [Moles/Vol] 135 mmol/L 135 - 145 mmol/L [facility] Urea nitrogen [Mass/Vol] 2 mg/dL Low 7 - 17 mg/dL [facility] CBC W Auto Differential pane l (Bld)Ordered By: Keshawn Carranza on 05-21-2023 Basophils (Bld) [#/Vol] 0.0 10*3/uL 0.0 - 0.2 10*3/uL [facility] Basophils/100 WBC (Bld) 0.4 % 0.0 - 2.0 % [facility] Eosinophils (Bld) [#/Vol] 0.2 10*3/uL 0.0 - 0.5 10*3/uL [facility] Eosinophils/100 WBC (Bld) 2.1 % 0.0 - 6.0 % [facility] Erythrocyte distribution width (RBC) [Ratio] 17.3 % High 11.5 - 15.0 % [facility] Hematocrit (Bld) [Volume fraction] 25.9 % Low 35.0 - 47.0 % [facility] Hemoglobin (Bld) [Mass/Vol] 7.9 g/dL Low 11.7 - 16.0 g/dL [facility] Immature granulocytes (Bld) [#/Vol] 0.1 10*3/uL High NINF - 0.1 10*3/uL [facility] Immature granulocytes/100 WBC (Bld) 0.8 % 0.0 - 2.0 % [facility] Interpretation and review of laboratory results Abnormal [facility] Lymphocytes (Bld) [#/Vol] 1.9 10*3/uL 1.0 - 4.3 10*3/uL [facility] Lymphocytes/100 WBC (Bld) 20.6 % 15.0 - 45.0 % [facility] MCH (RBC) [Entitic mass] 21.8 pg Low 26.0 - 34.0 pg [facility] MCHC (RBC) [Mass/Vol] 30.5 % 30.5 - 36.0 % [facility] MCV (RBC) [Entitic vol] 71.5 fL Low 77.0 - 99.0 fL [facility] [employer] Monocytes (Bld) [#/Vol] 0.7 10*3/uL 0.0 - 0.9 10*3/uL [facility] Monocytes/100 WBC (Bld) 7.8 % 5.0 - 13.0 % [facility] Neutrophils (Bld) [#/Vol] 6.2 10*3/uL 1.8 - 7.5 10*3/uL [facility] Neutrophils/100 WBC (Bld) 68.3 % 38.0 - 82.0 % [facility] Nucleated RBC/100 WBC (Bld) [Ratio] 0.0 % [facility] [employer] Platelet mean volume (Bld) [Entitic vol] 10.4 fL 9.0 - 12.7 fL [facility] Platelets (Bld) [#/Vol] 326 10*3/uL 140 - 440 10*3/uL [facility] RBC (Bld) [#/Vol] 3.62 10*6/uL Low 3.80 - 5.2 0 10*6/uL [facility] WBC (Bld) [#/Vol] 9.1 10*3/uL 3.6 - 10.7 10*3/uL [facility] Iron and Iron binding capaci ty panelon 05-21-2023 Interpretation and review of laboratory results Abnormal [facility] Iron [Mass/Vol] 41 ug/dL 37 - 170 ug/dL [facility] Iron binding capacity [Mass/Vol] 303 ug/dL 261 - 497 ug/dL [facility] Iron saturation [Mass fraction] 14 % Low 15 - 50 % [facility] Laboratory - Chemistry and C hemistry - challengeon 05-21-2023 Transferrin [Mass/Vol] 233 mg/dL 206 - 381 mg/dL [facility] Magnesium [Mass/Vol] 1.5 mg/dL Low 1.6 - 2 .3 mg/dL [facility] Magnesium [Mass/Vol]on 05-20 Interpretation and review of laboratory results Abnormal [facility] No Panel Informationon 05-20 Interpretation and review of laboratory results Normal [facility] ABO and Rh group Confirm Nom (Bld)on 05-20-2023 ABO group Nom (Bld) B [facility] D Ag Ql (RBC) [facility] Basic metabolic 1998 panelon 05-20-2023 Anion gap [Moles/Vol] 14 mmol/L High 3 - 13 mmol/L [facility] Calcium [Mass/Vol] 8.6 mg/dL 8.4 - 10. 4 mg/dL [facility] Chloride [Moles/Vol] 105 mmol/L 98 - 10 7 mmol/L [facility] CO2 [Moles/Vol] 17 mmol/L Low 22 - 30 mmol/L [facility] Creatinine [Mass/Vol] 0.54 mg/dL 0.52 - 1.04 mg/dL [facility] GFR/1.73 sq M.predicted MDRD (S/P/Bld) [Vol rate/Area] - PINF [facility] Comment on above: Calculation based on the Chronic Kidney Disease Epidemiology Collaboration (CKD-EPI) equation refit without adjustment for race Glucose [Mass/Vol] 90 mg/dL 70 - 100 mg/dL [facility] Interpretation and review of laboratory results Abnormal [facility] Potassium [Moles/Vol] 3.5 mmol/L 3.5 - 5.1 mmol/L [facility] Sodium [Moles/Vol] 136 mmol/L 135 - 145 mmol/L [facility] Urea nitrogen [Mass/Vol] 3 mg/dL Low 7 - 17 mg/dL [facility] Blood type and Crossmatch suzanna brie (Bld)on 05-20-2023 ABO group Nom (Bld) B [facility] Blood group antibody screen GEL Ql Negative [facility] D Ag Ql (RBC) Positive [facility] Healt h [facility] CBC W Auto Differential pane l (Bld)Ordered By: [place] on 05-20-2023 Basophils (Bld) [#/Vol] 0.0 10*3/uL 0.0 - 0.2 10*3/uL [facility] Basophils/100 WBC (Bld) 0.3 % 0.0 - 2.0 % [facility] Eosinophils (Bld) [#/Vol] 0.1 10*3/uL 0.0 - 0.5 10*3/uL [facility] Eosinophils/100 WBC (Bld) 1.4 % 0.0 - 6.0 % [facility] Erythrocyte distribution width (RBC) [Ratio] 17.2 % High 11.5 - 15.0 % [facility] Hematocrit (Bld) [Volume fraction] 26.8 % Low 35.0 - 47.0 % [facility] Hemoglobin (Bld) [Mass/Vol] 8.4 g/dL Low 11.7 - 16.0 g/dL [facility] Immature granulocytes (Bld) [#/Vol] 0.1 10*3/uL High NINF - 0.1 10*3/uL [facility] Immature granulocytes/100 WBC (Bld) 1.3 % 0.0 - 2.0 % [facility] Interpretation and review of laboratory results Abnormal [facility] Lymphocytes (Bld) [#/Vol] 2.1 10*3/uL 1.0 - 4.3 10*3/uL [facility] Lymphocytes/100 WBC (Bld) 21.5 % 15.0 - 45.0 % [facility] MCH (RBC) [Entitic mass] 22.3 pg Low 26.0 - 34.0 pg [facility] MCHC (RBC) [Mass/Vol] 31.3 % 30.5 - 36.0 % [facility] MCV (RBC) [Entitic vol] 71.3 fL Low 77.0 - 99.0 fL [facility] Monocytes (Bld) [#/Vol] 0.8 10*3/uL 0.0 - 0.9 10*3/uL [facility] Monocytes/100 WBC (Bld) 8.1 % 5.0 - 13.0 % [facility] Neutrophils (Bld) [#/Vol] 6.5 10*3/uL 1.8 - 7.5 10*3/uL [facility] Neutrophils/100 WBC (Bld) 67.4 % 38.0 - 82.0 % [facility] Nucleated RBC/100 WBC (Bld) [Ratio] 0.0 % [facility] Platelet mean volume (Bld) [Entitic vol] 10.4 fL 9.0 - 12.7 fL [facility] Platelets (Bld) [#/Vol] 350 10*3/uL 140 - 440 10*3/uL [facility] RBC (Bld) [#/Vol] 3.76 10*6/uL Low 3.80 - 5.2 0 10*6/uL [facility] WBC (Bld) [#/Vol] 9.6 10*3/uL 3.6 - 10.7 10*3/uL [facility] Hemoglobin (Bld) [Mass/Vol]O rdered By: Romelia Whitfield on 05-20-2023 Hematocrit (Bld) [Volume fraction] 28.4 % Low 35.0 - 47.0 % [facility] Interpretation and review of laboratory results Abnormal [facility] Laboratory - Chemistry and C hemistry - challengeon 05-20-2023 Lipase [Catalytic activity/Vol] 565 U/L High 23 - 300 U/L [facility] Magnesium [Mass/Vol] 1.6 mg/dL 1.6 - 2 .3 mg/dL [facility] Laboratory - Hematology and Cell countsOrdered By: Romelia Whitfield on 05-20-2023 Hemoglobin (Bld) [Mass/Vol] 8.5 g/dL Low 11.7 - 16.0 g/dL [facility] Lipase [Catalytic activity/V ol]on 05-20-2023 Interpretation and review of laboratory results Abnormal [facility] Magnesium [Mass/Vol]on 05-19 Interpretation and review of laboratory results Normal [facility] No Panel Informationon 05-19 No evidence of [...] and spontaneous flow. Soleal Vein: Not visualized. [employer] A branch scale, color Doppler imaging [...] [#/Vol] 0.0 10*3/uL 0.0 - 0.2 10*3/uL [facility] [employer] Basophils/100 WBC (Bld) 0.3 % 0.0 - 2.0 % [facility] [employer] Eosinophils (Bld) [#/Vol] 0.1 10*3/uL 0.0 - 0.5 10*3/uL [facility] [employer] Eosinophils/100 WBC (Bld) 0.9 % 0.0 - 6.0 % [facility] [employer] Erythrocyte distribution width (RBC) [Ratio] 16.9 % High 11.5 - 15.0 % [facility] [employer] Hematocrit (Bld) [Volume fraction] 32.6 % Low 35.0 - 47.0 % [facility] [employer] Hemoglobin (Bld) [Mass/Vol] 10.1 g/dL Low 11.7 - 16.0 g/dL [facility] [employer] Immature granulocytes (Bld) [#/Vol] 0.1 10*3/uL High NINF - 0.1 10*3/uL [facility] Immature granulocytes/100 WBC (Bld) 1.1 % 0.0 - 2.0 % [facility] [employer] Interpretation and review of laboratory results Abnormal [facility] [employer] Lymphocytes (Bld) [#/Vol] 2.0 10*3/uL 1.0 - 4.3 10*3/uL [facility] Lymphocytes/100 WBC (Bld) 16.4 % 15.0 - 45.0 % [facility] [employer] MCH (RBC) [Entitic mass] 22.3 pg Low 26.0 - 34.0 pg [facility] [employer] MCHC (RBC) [Mass/Vol] 31.0 % 30.5 - 36.0 % [facility] [employer] MCV (RBC) [Entitic vol] 72.1 fL Low 77.0 - 99.0 fL [facility] [employer] Monocytes (Bld) [#/Vol] 1.0 10*3/uL High 0.0 - 0.9 10*3/uL [facility] Monocytes/100 WBC (Bld) 8.3 % 5.0 - 13.0 % [facility] [employer] Neutrophils (Bld) [#/Vol] 8.8 10*3/uL High 1.8 - 7.5 10*3/uL [facility] Neutrophils/100 WBC (Bld) 73.0 % 38.0 - 82.0 % [facility] [employer] Nucleated RBC/100 WBC (Bld) [Ratio] 0.0 % [facility] [employer] Platelet mean volume (Bld) [Entitic vol] 10.6 fL 9.0 - 12.7 fL [facility] [employer] Platelets (Bld) [#/Vol] 398 10*3/uL 140 - 440 10*3/uL [facility] [employer] RBC (Bld) [#/Vol] 4.52 10*6/uL 3.80 - 5.2 0 10*6/uL [facility] [employer] WBC (Bld) [#/Vol] 12.0 10*3/uL High 3.6 - 10.7 10*3/uL [facility] CT Abdomen and Pelvis W cont rast Christophe 05-19-2023 1. Mildly hyperdense or complex fluid [...] MD Electronically Signed Date/Time: 05/19/2023 7:15 PM T [facility] [employer] Patient Name: ANNE MARIE BATES : 1995 [facility]#: [id number] Exam Date/Time: 05/19/2023 18:37 Procedure: CT ABDOMEN [...] tissue stranding probably postsurgical change or residual. [facility] Sarath Zurita MD - 05/19/2023 Patient Name: ANNE MARIE PETERSON : 1995 Exam Date/Time: 05/19/2023 18:37 Procedure: CT ABDOMEN [...] Electronically Signed Date/Time: 05/19/2023 7:15 PM EDT [facility] Radiology Study observation (narrative) [facility] CT Abdomen and Pelvis W cont rast IVOrdered By: Sarath Zurita on 05-19-2023 [facility] Work Phone: Comprehensive metabolic 1998 panelon 05-19-2023 Albumin [Mass/Vol] 3.9 g/dL 3.5 - 5.0 g/dL [facility] ALP [Catalytic activity/Vol] 61 U/L 38 - 126 U/L [facility] ALT [Catalytic activity/Vol] 33 U/L 0 - 34 U/L [facility] Anion gap [Moles/Vol] 11 mmol/L 3 - 13 mmol/L [facility] AST [Catalytic activity/Vol] 28 U/L 15 - 46 U/L [facility] Bilirubin [Mass/Vol] 0.8 mg/dL 0.2 - 1 .3 mg/dL [facility] Calcium [Mass/Vol] 9.1 mg/dL 8.4 - 10. 4 mg/dL [facility] Chloride [Moles/Vol] 104 mmol/L 98 - 10 7 mmol/L [facility] CO2 [Moles/Vol] 20 mmol/L Low 22 - 30 mmol/L [facility] Creatinine [Mass/Vol] 0.61 mg/dL 0.52 - 1.04 mg/dL [facility] GFR/1.73 sq M.predicted MDRD (S/P/Bld) [Vol rate/Area] - PINF [facility] Comment on above: Calculation based on the Chronic Kidney Disease Epidemiology Collaboration (CKD-EPI) equation refit without adjustment for race Glucose [Mass/Vol] 94 mg/dL 70 - 100 mg/dL [facility] [employer] Potassium [Moles/Vol] 3.9 mmol/L 3.5 - 5.1 mmol/L [facility] [employer] Protein [Mass/Vol] 7.5 g/dL 6.3 - 8.2 g/dL [facility] [employer] Sodium [Moles/Vol] 135 mmol/L 135 - 145 mmol/L [facility] [employer] Urea nitrogen [Mass/Vol] 4 mg/dL Low 7 - 17 mg/dL [facility] [employer] Laboratory - Chemistry and C hemistry - challengeOrdered By: Rachael Castañeda on 05-19-2023 Beta HCG ( test) Ql Negative Negative [facility] [employer] Comment on above: Please note: Very di lute urine specimens, as indicated by a low specific gravity, may not contain hostess party sales representative levels of hCG. If is still suspected, a first morning urine specimen should be collected 48 hours later and tested. Beta HCG ( test) Ql (U) is the most common reason for HCG in urine, although choriocarcinoma, hydatidiform mole, and certain nontrophoblastic malignancies also result in detectable urinary HCG levels. Sensitivity = 20mIU/mL. [facility] - Chemistry and C hemistry - challengeon 05-19-2023 Lipase [Catalytic activity/Vol] 493 U/L High 23 - 300 U/L [facility] Lactate [Moles/Vol] 0.7 mmol/L 0.7 - 2. 0 mmol/L [facility] No Panel InformationOrdered By: Weston Gunter on 05-19-2023 P Aleppo 27 degrees [employer] Work Phone: HI Interval 134 ms [employer] Work Phone: QRS Aleppo 1 degrees [employer] Work Phone: QRSD Interval 106 ms [employer] Work Phone: QT Interval 345 ms [employer] Work Phone: QTC Interval 441 ms [employer] Work Phone: T Wave Aleppo -10 degrees [employer] Work Phone: [employer] Work Phone: No Panel Informationon 05-18 Sinus [...] On 05-19-2023 22:52:16 EDT by Weston Gunter [facility] Interpretation and review of laboratory results Abnormal [facility] Interpretation and review of laboratory results Normal [facility] No Panel InformationOrdered By: Rachael Castañeda on 05-19-2023 [facility] Urinalysis complete panel (U )Ordered By: Gem Puentes on 05-19-2023 Amm Biurate Crystals, Urine Few Abnormal Negative /HPF [facility] Bacteria LM.HPF (Urine sed) [#/Area] Few Abnormal Negative /HPF [facility] Bilirubin Ql (U) Negative Negative mg/dL [facility] Calcium carbonate crystals LM.HPF (Urine sed) [#/Area] Many Abnormal Negative /HPF [facility] Clarity (U) Turbid Abnormal Clear [facility] Color (U) Light Yellow Lt. Yellow [facility] Epithelial cells.squamous LM.HPF (Urine sed) [#/Area] 0-2 [facility] h Glucose Ql (U) Normal Normal (<70) mg/dL [facility] Hemoglobin Ql (U) 0.03 mg/dL Abnormal Negative [facility] Interpretation and review of laboratory results Abnormal [facility] Ketones (U) [Mass/Vol] 150 mg/dL Abnormal Negative [facility] Leukocyte esterase Test strip Ql (U) Negative Negative Krish/uL [facility] Mucus LM.HPF (Urine sed) [#/Area] Few Negative /LPF [facility] Nitrite Ql (U) Negative Negative [facility] th pH (U) 6.0 [pH] 5.0 - 8.0 pH [facility] Protein (U) [Mass/Vol] 20 mg/dL Abnormal Negative [facility] RBC LM.HPF (Urine sed) [#/Area] 0-2 [facility] Specific gravity (U) [Rel density] 1.012 1.005 - 1.030 [facility] Urobilinogen (U) [Mass/Vol] Normal Normal (0-1) mg/dL [facility] WBC LM.HPF (Urine sed) [#/Area] 0-2 [facility] Vital signsOrdered By: Fletcher Gunter on 05-19-2023 Heart rate 98 /min bpm [facility] Work Phone: Basic metabolic 1998 panelon 05-11-2023 Anion gap [Moles/Vol] 12 mmol/L 3 - 13 mmol/L [facility] Calcium [Mass/Vol] 8.5 mg/dL 8.4 - 10. 4 mg/dL [facility] Chloride [Moles/Vol] 100 mmol/L 98 - 10 7 mmol/L [facility] CO2 [Moles/Vol] 22 mmol/L 22 - 30 mmol/L [facility] Creatinine [Mass/Vol] 0.52 mg/dL 0.52 - 1.04 mg/dL [facility] GFR/1.73 sq M.predicted MDRD (S/P/Bld) [Vol rate/Area] - PINF [facility] Comment on above: Calculation based on the Chronic Kidney Disease Epidemiology Collaboration (CKD-EPI) equation refit without adjustment for race Glucose [Mass/Vol] 164 mg/dL High 70 - 100 mg/dL [facility] Potassium [Moles/Vol] 4.9 mmol/L 3.5 - 5.1 mmol/L [facility] Sodium [Moles/Vol] 134 mmol/L Low 135 - 145 mmol/L [facility] Urea nitrogen [Mass/Vol] 10 mg/dL 7 - 17 mg/dL [facility] CBC panel Auto (Bld)Ordered By: [place] on 05-11-2023 Erythrocyte distribution width (RBC) [Ratio] 16.4 % High 11.5 - 15.0 % [facility] Hematocrit (Bld) [Volume fraction] 38.0 % 35.0 - 47.0 % [facility] Hemoglobin (Bld) [Mass/Vol] 11.4 g/dL Low 11.7 - 16.0 g/dL [facility] Interpretation and review of laboratory results Abnormal [facility] MCH (RBC) [Entitic mass] 21.6 pg Low 26.0 - 34.0 pg [facility] MCHC (RBC) [Mass/Vol] 30.0 % Low 30.5 - 36.0 % [facility] MCV (RBC) [Entitic vol] 72.1 fL Low 77.0 - 99.0 fL [facility] Platelet mean volume (Bld) [Entitic vol] 10.5 fL 9.0 - 12.7 fL [facility] Platelets (Bld) [#/Vol] 406 10*3/uL 140 - 440 10*3/uL [facility] RBC (Bld) [#/Vol] 5.27 10*6/uL High 3.80 - 5.2 0 10*6/uL [facility] WBC (Bld) [#/Vol] 15.4 10*3/uL High 3.6 - 10.7 10*3/uL [facility] Laboratory - Chemistry and C hemistry - challengeon 05-11-2023 CK [Catalytic activity/Vol] 454 U/L High 30 - 170 U/L [facility] No Panel Informationon 05-10 Interpretation and review of laboratory results Abnormal [facility] XR Abdomen and RF Gastrointe stinal tract upper W contrast Rex 05-11-2023 Gastric bypass post surgical changes. Marked narrowing at the gastrojejunostomy with initial delay in esophageal emptying. 20 minute delayed image demonstrates almost complete emptying of the gastric pouch without obstruction. No contrast leak. Report Dictated on Electronically Signed By: Denton Young MD Electronically Signed Date/Time: 05/11/2023 8:14 AM [facility] Patient Name: ANNE MARIE BATES [...] obstruction, allowing for slightly distended jejunal segment. [facility] Denton Young MD - 05/11/2023 [facility] Name: [facility] 1995 [id number] Exam Date/Time: 05/11/2023 07:45 Procedure: FL UPPER [...] Electronically Signed Date/Time: 05/11/2023 8:14 AM EDT [facility] Radiology Study observation (narrative) [facility] XR Abdomen and RF Gastrointe stinal tract upper W contrast POOrdered By: Denton Young on 05-11-2023 [employer] Work Phone: Basic metabolic 1998 panelon 05-10-2023 Anion gap [Moles/Vol] 11 mmol/L 3 - 13 mmol/L [facility] Calcium [Mass/Vol] 8.4 mg/dL 8.4 - 10. 4 mg/dL [facility] Chloride [Moles/Vol] 100 mmol/L 98 - 10 7 mmol/L [facility] CO2 [Moles/Vol] 23 mmol/L 22 - 30 mmol/L [facility] Creatinine [Mass/Vol] 0.68 mg/dL 0.52 - 1.04 mg/dL [facility] GFR/1.73 sq M.predicted MDRD (S/P/Bld) [Vol rate/Area] - PINF [facility] Comment on above: Calculation based on the Chronic Kidney Disease Epidemiology Collaboration (CKD-EPI) equation refit without adjustment for race Glucose [Mass/Vol] 162 mg/dL High 70 - 100 mg/dL [facility] Potassium [Moles/Vol] 4.0 mmol/L 3.5 - 5.1 mmol/L [facility] Sodium [Moles/Vol] 135 mmol/L 135 - 145 mmol/L [facility] Urea nitrogen [Mass/Vol] 11 mg/dL 7 - 17 mg/dL [facility] CBC panel Auto (Bld)Ordered By: Farida Espinoza on 05-10-2023 Erythrocyte distribution width (RBC) [Ratio] 16.8 % High 11.5 - 15.0 % [facility] Hematocrit (Bld) [Volume fraction] 39.6 % 35.0 - 47.0 % [facility] Hemoglobin (Bld) [Mass/Vol] 12.0 g/dL 11.7 - 16.0 g/dL [facility] Interpretation and review of laboratory results Abnormal [facility] MCH (RBC) [Entitic mass] 22.2 pg Low 26.0 - 34.0 pg [facility] MCHC (RBC) [Mass/Vol] 30.3 % Low 30.5 - 36.0 % [facility] MCV (RBC) [Entitic vol] 73.3 fL Low 77.0 - 99.0 fL [facility] Platelet mean volume (Bld) [Entitic vol] 10.0 fL 9.0 - 12.7 fL [facility] Platelets (Bld) [#/Vol] 387 10*3/uL 140 - 440 10*3/uL [facility] RBC (Bld) [#/Vol] 5.40 10*6/uL High 3.80 - 5.2 0 10*6/uL [facility] WBC (Bld) [#/Vol] 20.2 10*3/uL High 3.6 - 10.7 10*3/uL [facility] HCG ( test) Ql (U)o n 05-10-2023 Beta HCG ( test) Ql (U) [id number] [facility] Interpretation and review of laboratory results Normal [facility] NEGATIVE QC Pass [facility] POSITIVE QC Pass [facility] Preg Test, Ur Negative Negative [facility] Radiology Study observation (narrative) [facility] - Chemistry and C hemistry - challengeon 05-10-2023 CK [Catalytic activity/Vol] 186 U/L High 30 - 170 U/L [facility] No Panel Informationon 05-09 Interpretation and review of laboratory results Abnormal [facility] US Heart TransthoracicOrdere d By: Eliazar Gates on 01-12-2023 Ascending Aorta 2.8 cm [facility] Work Phone: [phone] Ascending Aorta Index 1.06 cm/m2 [facility] Work Phone: [phone] AV Area by Peak Velocity 2.1 cm2 [facility] Work Phone: [phone] AV Area by VTI 2.3 cm2 [facility] Work Phone: [phone] AV Mean Gradient 6 mmHg [facility] Work Phone: [phone] AV Mean Velocity 1.2 m/s [facility] Work Phone: [phone] AV Peak Gradient 12 mmHg [facility] Work Phone: [phone] AV Peak Velocity 1.7 m/s [facility] Work Phone: [phone] AV Velocity Ratio 0.71 [facility] Work Phone: [phone] AV VTI 29.1 cm [facility] Work Phone: [phone] USAMA/BSA Peak Velocity 0.8 cm2/m2 [facility] Work Phone: [phone] USAMA/BSA VTI 0.9 cm2/m2 [facility] Work Phone: E/E' Septal 11.13 [facility] Work Phone: EF BP 65 % 55 - 100 % [facility] Work Phone: Fractional Shortening 2D 19 % 28 - 44 % [facility] Work Phone: Interpretation and review of laboratory results Abnormal [facility] Work Phone: IVC Diameter 1.7 cm [facility] Work Phone: IVSd 1.0 cm 0.6 - 0.9 cm [facility] Work Phone: LA Volume 2C 31 mL 22 - 52 mL [facility] Work Phone: LA Volume 4C 24 mL 22 - 52 mL [facility] Work Phone: LA Volume A/L [address] [facility] Work Phone: LA Volume Index 2C 12 mL/m2 16 - 34 mL/m2 [facility] Work Phone: LA Volume Index 4C 9 mL/m2 16 - 34 mL/m2 [facility] Work Phone: LA Volume Index A/L 11 mL/m2 16 - 34 mL/m2 [facility] Work Phone: LV E' Septal Velocity 8 cm/s [facility] Work Phone: LV EDV A2C 88 mL [facility] Work Phone: LV EDV A4C 139 mL [facility] Work Phone: LV EDV BP 116 mL 56 - 104 mL [facility] Work Phone: LV EDV Index A2C 33 mL/m2 [facility] Work Phone: LV EDV Index A4C 53 mL/m2 [facility] Work Phone: LV EDV Index BP 44 mL/m2 [facility] Work Phone: LV Ejection Fraction A2C 71 % [facility] Work Phone: LV Ejection Fraction A4C 53 % [facility] Work Phone: LV ESV A2C 25 mL [facility] Work Phone: [phone] LV ESV A4C 65 mL [facility] Work Phone: [phone] LV ESV BP 40 mL 19 - 49 mL [facility] Work Phone: [phone] LV ESV Index A2C 9 mL/m2 [facility] Work Phone: [phone] LV ESV Index A4C 25 mL/m2 [facility] Work Phone: [phone] LV ESV Index BP 15 mL/m2 [facility] Work Phone: [phone] LV Mass 2D 187.5 g Abnormal 67 - 162 g [facility] Work Phone: [phone] LV Mass 2D Index 71.0 g/m2 43 - 95 g/m2 [facility] Work Phone: [phone] LV RWT Ratio 0.51 [facility] Work Phone: [phone] LVIDd 4.7 cm 3.9 - 5.3 cm [facility] Work Phone: 95 LVIDd Index 1.78 cm/m2 [facility] Work Phone: 95 LVIDs 3.8 cm [facility] Work Phone: [phone] LVIDs Index 1.44 cm/m2 [facility] Work Phone: [phone] LVOT Area 3.1 cm2 [facility] Work Phone: [phone] LVOT Cardiac Output 6.7 liter/minute [facility] Work Phone: [phone] LVOT Diameter 2.0 cm [facility] h Work Phone: [phone] LVOT Mean Gradient 3 mmHg [facility] Work Phone: [phone] LVOT Peak Gradient 6 mmHg [facility] Work Phone: [phone] LVOT Peak Velocity 1.2 m/s [facility] Work Phone: [phone] LVOT Stroke Volume Index 26.2 mL/m2 [facility] Work Phone: [phone] LVOT SV 69.1 ml [facility] Work Phone: LVOT VTI 22.0 cm [facility] Work Phone: [phone] LVOT:AV VTI Index 0.76 [facility] Work Phone: [phone] LVPWd 1.2 cm 0.6 - 0.9 cm [facility] Work Phone: [phone] MV A Velocity 0.82 m/s [facility] Work Phone: [phone] MV E Velocity 0.89 m/s [facility] Work Phone: [phone] MV E Wave Deceleration Time 208.9 ms [facility] Work Phone: [phone] MV E/A 1.09 [facility] Work Phone: [phone] PV Max Velocity 1.3 m/s [facility] Work Phone: [phone] PV Peak Gradient 7 mmHg [facility] Work Phone: [phone] RV Free Wall Peak S' 238 cm/s [facility] Work Phone: [phone] TAPSE 2.4 cm 1.7 cm [facility] Work Phone: [phone] TR Max Velocity 2.52 m/s [facility] Work Phone: [phone] TR Peak Gradient 25 mmHg [facility] Work Phone: [phone] [facility] Work Phone: [phone] Heart Transthoracicon Left Ventricle: Left ventricle [...] Interpretation and review of laboratory results Abnormal [facility] is based on measurement of Total 25-OHD with the following classification levels: Less than 20 ng/mL: Indicative of Vit D deficiency 20-30 ng/mL: Suggests Vit D insufficiency Optimal: Greater than or equal to 30 ng/mL Test performed by [employer] Immunoassay, measuring Total Vitamin D, not individual fractions. [facility] CBC panel Auto (Bld)Ordered By: Mildred Garcia on 12-14-2022 Erythrocyte distribution width (RBC) [Ratio] 17.2 % High 11.5 - 14.5 % [facility] Hematocrit (Bld) [Volume fraction] 38.1 % 35.0 - 47.0 % [facility] Hemoglobin (Bld) [Mass/Vol] 11.9 g/dL 11.7 - 16.0 g/dL [facility] Interpretation and review of laboratory results Abnormal [facility] MCH (RBC) [Entitic mass] 21.9 pg Low 26.0 - 34.0 pg [facility] MCHC (RBC) [Mass/Vol] 31.2 % Low 32.0 - 36.0 % [facility] MCV (RBC) [Entitic vol] 70.3 fL Low 80.0 - 98.0 fL [facility] Platelet mean volume (Bld) [Entitic vol] 8.7 fL 7.4 - 12.4 fL [facility] Platelets (Bld) [#/Vol] 380 10*3/uL 140 - 440 10*3/uL [facility] RBC (Bld) [#/Vol] 5.43 10*6/uL High 3.8 - 5.20 10*6/uL [facility] WBC (Bld) [#/Vol] 10.5 10*3/uL 3.6 - 10.7 10*3/uL [facility] Comprehensive metabolic 1998 panelon 12-14-2022 Albumin [Mass/Vol] 4.4 g/dL 3.5 - 5.0 g/dL [facility] ALP [Catalytic activity/Vol] 70 U/L 38 - 126 U/L [facility] ALT [Catalytic activity/Vol] 23 U/L 0 - 34 U/L [facility] Anion gap [Moles/Vol] 9 mmol/L 3 - 13 mmol/L [facility] AST [Catalytic activity/Vol] 23 U/L 15 - 46 U/L [facility] Bilirubin [Mass/Vol] 0.5 mg/dL 0.2 - 1 .3 mg/dL [facility] Calcium [Mass/Vol] 9.3 mg/dL 8.4 - 10. 4 mg/dL [facility] Chloride [Moles/Vol] 99 mmol/L 98 - 10 7 mmol/L [facility] CO2 [Moles/Vol] 29 mmol/L 22 - 30 mmol/L [facility] Creatinine [Mass/Vol] 0.65 mg/dL 0.52 - 1.04 mg/dL [facility] GFR/1.73 sq M.predicted MDRD (S/P/Bld) [Vol rate/Area] - PINF [facility] Comment on above: Calculation based on the Chronic Kidney Disease Epidemiology Collaboration (CKD-EPI) equation refit without adjustment for race Glucose [Mass/Vol] 86 mg/dL 70 - 100 mg/dL [facility] Potassium [Moles/Vol] 4.2 mmol/L 3.5 - 5.1 mmol/L [facility] Protein [Mass/Vol] 8.7 g/dL High 6.3 - 8.2 g/dL [facility] Sodium [Moles/Vol] 137 mmol/L 135 - 145 mmol/L [facility] Urea nitrogen [Mass/Vol] 13 mg/dL 7 - 17 mg/dL [facility] Ferritinon 12-14-2022 Ferritin [Mass/Vol] 14 ng/mL 6 - 137 ng/mL [facility] Ferritin [Mass/Vol]on 2022 Interpretation and review of laboratory results Normal [facility] Folateon 12-14-2022 Folate [Mass/Vol] 3.3 ng/mL 2.9 - PINF ng/mL [facility] Hemoglobin A1con 12-14-2022 Average glucose Estimated from glycated hemoglobin (Bld) [Mass/Vol] 120 mg/dL [facility] HbA1c (Bld) [Mass fraction] 5.8 % High NINF - 5.7 % [facility] Comment on above: Normal less than 5.7 % Prediabetes 5.7% to 6.4% Diabetes 6.5% or higher --HgbA1C levels may not be accurate in patients who have renal disease, received recent blood transfusions, are anemic, or who have dyshemoglobinemia. Interpretation and review of laboratory results Abnormal [facility] Iron and Iron binding capaci ty panelon 12-14-2022 Interpretation and review of laboratory results Abnormal [facility] Iron [Mass/Vol] 31 ug/dL Low 37 - 170 ug/dL [facility] Lipid 1996 panelon Cholesterol [Mass/Vol] 184 mg/dL NINF - 200 mg/dL [facility] Cholesterol in HDL [Mass/Vol] 30 mg/dL Low 40 - 60 mg/dL [facility] Cholesterol in LDL [Mass/Vol] 136 mg/dL High 0 - <100 [facility] Cholesterol.total/Gerardo sterol in HDL [Mass ratio] 6 {ratio} [facility] Comment on above: Ref Range: < 3 Low Risk for CHD 3-6 Mod Risk for CHD > 6 High Risk for CHD Triglyceride [Mass/Vol] 91 mg/dL NINF - 150 mg/dL [facility] Magnesiumon 12-14-2022 Magnesium [Mass/Vol] 2.0 mg/dL 1.6 - 2 .3 mg/dL [facility] Magnesium [Mass/Vol]on 12-14 Interpretation and review of laboratory results Normal [facility] No Panel Informationon 12-14 Interpretation and review of laboratory results Normal [facility] Interpretation and review of laboratory results Abnormal [facility] TSHon 12-14-2022 TSH Qn 3.605 m[IU]/L [facility] h TSH Qnon 12-14-2022 Interpretation and review of laboratory results Normal [facility] Vitamin B12on 12-14-2022 Cobalamin (Vitamin B12) [Mass/Vol] 260 pg/mL 239 - 931 pg/mL [facility] Vitamin D Deficiency Screeni ng (Vit D 25)on 12-14-2022 25-hydroxyvitamin D3 [Mass/Vol] ng/mL Low 30 - 100 ng/mL [facility] Absolute lymphocyte countOrd ered By: Silviano Daley on 09-03-2022 Lymphocytes Auto (Unsp spec) [#/Vol] 2.56 10*3/uL 0.83-4.[address] [facility] Basophil percentageOrdered B y: Silviano Daley on 09-03-2022 Basophils/100 WBC (Bld) 0.5 % 0-1 [facility] Bilirubin [Mass/Vol] 0.60 mg/dL 0.20-1.00 [facility] Comment on above: For patients on eltr ombopag therapy, use of Dimension [place] TBIL is not recommended. Chloride [Moles/Vol] 104 mmol/L 98-107 [facility] Cholesterol [Mass/Vol] 157 mg/dL <200 [facility] Comment on above: <200 mg/dL Desirable 200-240 mg/dL Borderline >240 mg/dL High Risk Eosinophils/100 WBC (Bld) 1.6 % 0-[address] [facility] Glucose [Mass/Vol] 95 mg/dL 74-106 [facility] Neutrophils (Bld) [#/Vol] 7.1 10*3/uL 2.0-7.[address] [facility] Neutrophils/100 WBC (Bld) 67.8 % 47-[address] [facility] Potassium [Moles/Vol] 4.0 mmol/L 3.5-5.1 [facility] Protein [Mass/Vol] 8.0 g/dL 6.4-8.2 [facility] Sodium [Moles/Vol] 137 mmol/L 136-145 [facility] Triglyceride [Mass/Vol] 83 mg/dL <199 [facility] Comment on above: The drugs N-Acetylcy steine and Metamizole may falsely depress this assay.Serum Triglycerides Reference Interval Normal <150 mg/dL Borderline high 150 - 199 mg/dL High 200 - 499 mg/dL Very High > or = 500 mg/dL WBC (Bld) [#/Vol] 10.5 10*3/uL 4.4-11.0 [facility] Blood erythrocytes count (nu mber/volume)Ordered By: Silviano Daley on 09-03-2022 RBC (Bld) [#/Vol] 5.37 10*6/uL 4.2-5.4 [facility] Blood hemoglobin measurement (mass/volume)Ordered By: Silviano Daley on 09-03-2022 Hemoglobin (Bld) [Mass/Vol] 11.5 g/dL 12.0-15.[address] [facility] Blood lymphocytes/100 leukoc ytesOrdered By: Silviano Daley on 09-03-2022 Lymphocytes/100 WBC (Bld) 24.5 % 19-[address] [facility] Blood monocytes/100 leukocyt esOrdered By: Silviano Daley on 09-03-2022 Monocytes/100 WBC (Bld) 5.0 % 0-10 [facility] Blood platelet mean volumeOr dered By: Silviano Daley on 09-03-2022 Platelet mean volume (Bld) [Entitic vol] 10.1 fL 6.2-12.[address] [facility] Determination of erythrocyte mean corpuscular volume (MCV)Ordered By: Silviano Daley on 09-03-2022 MCV (RBC) [Entitic vol] 72.6 fL 81-99 [facility] Hematocrit Auto (Bld) [Volum e fraction]Ordered By: Silviano Daley on 09-03-2022 Hematocrit (Bld) [Volume fraction] 39.0 % 37-[address] [facility] Laboratory - Chemistry and C hemistry - challengeOrdered By: Silviano Daley on 09-03-2022 ALP [Catalytic activity/Vol] 62 U/L 45-[address] [facility] ALT [Catalytic activity/Vol] 20 U/L 13-[address] [facility] CO2 [Moles/Vol] 26.0 mmol/L 21.0-32.[address] [facility] Globulin (S) [Mass/Vol] 4.6 g/dL 2.2-4.2 [facility] Urea nitrogen/Creatinine [Mass ratio] 14.4 mg/mg 10-[address] [facility] Laboratory - Hematology and Cell countsOrdered By: Silviano Daley on 09-03-2022 Erythrocyte distribution width (RBC) [Entitic vol] 45.6 fL 35.1-43.[address] [facility] Erythrocyte distribution width (RBC) [Ratio] 18.0 % 11.6-14.[address] [facility] Immature granulocytes/100 WBC (Bld) 0.600 % 0.0-0.[address] [facility] Comment on above: IG% - Immature Granu locytes (promyelocytes, myelocytes and metamyelocytes) > 1% indicates that a LEFT SHIFT is Present. MCH (RBC) [Entitic mass] 21.4 pg 27.0-32.[address] [facility] Nucleated RBC/100 WBC (Bld) [Ratio] 0 % 0-[address] [facility] MCHC Auto (RBC) [Mass/Vol]Or dered By: Silviano Daley on 09-03-2022 MCHC (RBC) [Mass/Vol] 29.5 g/dL 32-36 [facility] No Panel InformationOrdered By: Silviano Daley on 09-03-2022 Estimated GFR (MDRD) Amer 117 mL/min >[address] [facility] Comment on above: GFR Calc Estimated GFR (MDRD) Non-Af Amer 97 mL/min >[address] [facility] Comment on above: Non- GFR Calc Free Triiodothyronine (T3) pg/dL 2.3 pg/mL 2.18-3.[address] [facility] Thyroid Stimulating Hormone (TSH) 2.58 uIU/mL 0.358-3.[address] [facility] Vitamin D 25-Hydroxy 24.4 ng/mL [facility] Comment on above: Vitamin D 25(OH) Sta tus Range Deficiency <20 ng/mL (50nmol/L) Insufficiency 20 - 30 ng/mL (50 - 75 nmol/L) Sufficiency 30 - 100 ng/mL (75 - 250 nmol/L) Toxicity >100 ng/mL (>250 nmol/L) Platelets bldOrdered By: Darrell Daley on 09-03-2022 Platelets (Bld) [#/Vol] 441 10*3/uL 150-[address] [facility] Serum or plasma 17-hydroxypr ogesterone measurement (mass/volume)Ordered By: Silviano Daley on 09-03-2022 17-Hydroxyprogesterone [Mass/Vol] 11 ng/dL . [facility] Comment on above: Adult Female Follicu lar 15 - 70 Luteal 35 - 290Performed at: BN - [facility] [address] [id number] Director: Ayo Burns MD, Phone: [phone] Serum or plasma albumin janette urement (mass/volume)Ordered By: Silviano Daley on 09-03-2022 Albumin [Mass/Vol] 3.4 g/dL 3.2-5.0 [facility] Serum or plasma albumin/glob ulin mass ratioOrdered By: Silviano Daley on 09-03-2022 Albumin/Globulin [Mass ratio] 0.7 {ratio} 0.9-2.[address] [facility] Serum or plasma calcium janette urement (mass/volume)Ordered By: Silviano Daley on 09-03-2022 Calcium [Mass/Vol] 8.8 mg/dL 8.5-10.1 [facility] Serum or plasma cholesterol in HDL measurement (mass/volume)Ordered By: Silviano Daley on 09-03-2022 Cholesterol in HDL [Mass/Vol] 37 mg/dL >[address] [facility] Comment on above: The drugs N-Acetylcy steine and Metamizole may falsely depress this assay. Reference Range HDL <40 mg/dL Low HDL Cholesterol HDL >or= 60 mg/dL High HDL Cholesterol Serum or plasma cholesterol in VLDL measurement (mass/volume)Ordered By: Silviano Daley on 09-03-2022 Cholesterol in VLDL [Mass/Vol] 17 mg/dL 5-[address] [facility] Serum or plasma creatinine m easurement (mass/volume)Ordered By: Silviano Daley on 09-03-2022 Creatinine [Mass/Vol] 0.76 mg/dL 0.55-1.02 [facility] Comment on above: The validity of the calculated GFR & GFRAA in patients over 70 years has not been determined. Clinical correlation is essential. Serum or plasma low density lipoprotein (LDL) cholesterol measurement (mass/volume)Ordered By: Silviano Daley on 09-03-2022 Cholesterol in LDL [Mass/Vol] 103 mg/dL 0-[address] [facility] Serum or plasma urea nitroge n measurement (mass/volume)Ordered By: Silviano Daley on 09-03-2022 Urea nitrogen [Mass/Vol] 11 mg/dL 7-[address] [facility] Thin prep Papanicolaou smear with manual screeningOrdered By: Silviano Daley on 09-03-2022 Thin prep Papanicolaou smear with manual screening 13 U/L 15-[address] [facility] Thin prep Papanicolaou smear with manual screening 7 5-[address] [facility] Whole blood hemoglobin A1c/t otal hemoglobin ratio (mass fraction)Ordered By: Silviano Daley on 09-03-2022 HbA1c (Bld) [Mass fraction] 6.0 % 3.8-5.[address] [facility] Comment on above: Normal < 5.7 % Predi abetic 5.7 - 6.4 % Diabetic >or= 6.5 % Please note range changes. Laboratory - Chemistry and C hemistry - challengeOrdered By: Dr. Díaz on 06-11-2022 HCG ( test) Ql (U) Negative [facility] Comment on above: Very dilute urine sp ecimens, as indicated by a low specificgravity, may not contain hostess party sales representative levels of hCG. If is still suspected, a first morning urinespecimen should be collected 48 hours later and tested. Laboratory - Chemistry and C hemistry - challengeon 05-08-2022 HCG ( test) Ql (U) Negative [facility] Clostridium difficile detect ion by polymerase chain reactionOrdered By: Stephany Velez on 05-07-2022 C. difficile DNA FRANCE+probe Ql (Unsp spec) [facility] C. difficile DNA FRANCE+probe Ql (Unsp spec) [facility] EP PanelOrdered By: Stephany Velez on 05-07-2022 Gastrointestinal pathogens panel FRANCE+probe (Stl) [facility] No Panel InformationOrdered By: Stephany Velez on 05-07-2022 Stool Calprotectin 22 ug/g 0-120 [facility] Comment on above: Concentration Interp retation Follow-Up<16 - 50 ug/g Normal None>50 -120 ug/g Borderline Re-evaluate in 4-6 weeks >120 ug/g Abnormal Repeat as clinically indicatedPerformed at: [address] [id number] Director: Ayo Burns MD, Phone: [phone] Stool Clostridium difficile detectionOrdered By: Stephany Velez on 05-07-2022 C. difficile Ql (Stl) [facility] C. difficile Ql (Stl) [facility] Stool enteric pathogen panel by probe and target amplification methodOrdered By: Stephany Velez on 05-07-2022 Gastrointestinal pathogens panel FRANCE+probe (Stl) [facility] Stool lactoferrin detection by immunoassayOrdered By: Stephany Velez on 05-07-2022 Lactoferrin IA Ql (Stl) [facility] Lactoferrin IA Ql (Stl) [facility] Absolute lymphocyte countOrd ered By: Stephany Velez on 04-29-2022 Lymphocytes Auto (Unsp spec) [#/Vol] 2.36 10*3/uL 0.83-4.[address] [facility] Albumin Elph [Mass/Vol]Order ed By: Stephany Velez on 04-29-2022 Albumin [Mass/Vol] 3.3 g/dL 2.9-4.4 [facility] Atypical perinuclear antineu trophil cytoplasmic antibodies measurementOrdered By: Stephany Velez on 04-29-2022 Neutrophil cytoplasmic Ab.perinuclear.atypical IF (S) [Titer] <1:20 titer Neg:<1:[address] [facility] Comment on above: The atypical pANCA p attern has been observed in asignificant percentage of patients with ulcerative colitis,primary sclerosing cholangitis and autoimmune hepatitis.Performed at: - [facility] [id number] [place], [place] [id number] Director: Xavier Salas PhD, Phone: [phone] at: - [facility] [address] [id number] Director: Ayo Burns MD, Phone: [phone] Basophil percentageOrdered B y: Stephany Velez on 04-29-2022 Basophil percentage < 0.2 AI 0.0-0.9 [facility] Basophils/100 WBC (Bld) 0.2 % 0-1 [facility] Bilirubin [Mass/Vol] 0.40 mg/dL 0.20-1.00 [facility] Comment on above: For patients on eltr ombopag therapy, use of Dimension [place] TBIL is not recommended. Chloride [Moles/Vol] 107 mmol/L 98-107 [facility] Eosinophils/100 WBC (Bld) 1.7 % 0-[address] [facility] Glucose [Mass/Vol] 93 mg/dL 74-106 [facility] LDH [Catalytic activity/Vol] 173 U/L 84-[address] [facility] Neutrophils (Bld) [#/Vol] 6.2 10*3/uL 2.0-7.[address] [facility] Neutrophils/100 WBC (Bld) 67.0 % 47-[address] [facility] Potassium [Moles/Vol] 3.9 mmol/L 3.5-5.1 [facility] Protein [Mass/Vol] 7.8 g/dL 6.4-8.2 [facility] Sodium [Moles/Vol] 140 mmol/L 136-145 [facility] WBC (Bld) [#/Vol] 9.2 10*3/uL 4.4-11.0 [facility] Blood erythrocytes count (nu mber/volume)Ordered By: Stephany Velez on 04-29-2022 RBC (Bld) [#/Vol] 5.35 10*6/uL 4.2-5.4 [facility] Blood hemoglobin measurement (mass/volume)Ordered By: Stephany Velez on 04-29-2022 Hemoglobin (Bld) [Mass/Vol] 11.2 g/dL 12.0-15.[address] [facility] Blood lymphocytes/100 leukoc ytesOrdered By: Stephany Velez on 04-29-2022 Lymphocytes/100 WBC (Bld) 25.6 % 19-[address] [facility] Blood monocytes/100 leukocyt esOrdered By: Stephany Velez on 04-29-2022 Monocytes/100 WBC (Bld) 5.1 % 0-10 [facility] Blood platelet mean volumeOr dered By: Stephany Velez on 04-29-2022 Platelet mean volume (Bld) [Entitic vol] 10.4 fL 6.2-12.[address] [facility] Determination of erythrocyte mean corpuscular volume (MCV)Ordered By: Stephany Velez on 04-29-2022 MCV (RBC) [Entitic vol] 72.3 fL 81-99 [facility] Erythrocyte sedimentation ra teOrdered By: Stephany Velez on 04-29-2022 ESR (Bld) [Velocity] 43 mm/h 0-30 [facility] Hematocrit Auto (Bld) [Volum e fraction]Ordered By: Stephany Velez on 04-29-2022 Hematocrit (Bld) [Volume fraction] 38.7 % 37-[address] [facility] Interpretation of serum or p lasma protein pattern by immunofixation (narrative resultOrdered By: Stephany Velez on 04-29-2022 Protein Fractions Immunofixation Girish [Interp] See comment [facility] Comment on above: Result: Not Observed Laboratory - Chemistry and C hemistry - challengeOrdered By: Stephany Velez on 04-29-2022 ALP [Catalytic activity/Vol] 60 U/L 45-[address] [facility] ALT [Catalytic activity/Vol] 34 U/L 13-[address] [facility] CO2 [Moles/Vol] 28.0 mmol/L 21.0-32.[address] [facility] Urea nitrogen/Creatinine [Mass ratio] 14.5 mg/mg 10-[address] [facility] Laboratory - Hematology and Cell countsOrdered By: Stephany Velez on 04-29-2022 Erythrocyte distribution width (RBC) [Entitic vol] 44.8 fL 35.1-43.[address] [facility] Erythrocyte distribution width (RBC) [Ratio] 17.3 % 11.6-14.[address] [facility] Immature granulocytes/100 WBC (Bld) 0.400 % 0.0-0.[address] [facility] Comment on above: IG% - Immature Granu locytes (promyelocytes, myelocytes and metamyelocytes) > 1% indicates that a LEFT SHIFT is Present. MCH (RBC) [Entitic mass] 20.9 pg 27.0-32.[address] [facility] Nucleated RBC/100 WBC (Bld) [Ratio] 0 % 0-[address] [facility] MCHC Auto (RBC) [Mass/Vol]Or dered By: Stephany Velez on 04-29-2022 MCHC (RBC) [Mass/Vol] 28.9 g/dL 32-36 [facility] No Panel InformationOrdered By: Stephany Velez on 04-29-2022 Addendum Document Comment . [facility] Comment on above: Protein electrophore sis scan will follow via computer,mail, or pedicab driver delivery. Centromere B Antibody <0.2 AI 0.0-0.9 [facility] Endomysial IgA Antibody Negative Negative [facility] Estimated GFR (MDRD) Amer 132 mL/min >[address] [facility] Comment on above: GFR Calc Estimated GFR (MDRD) Non-Af Amer 109 mL/min >[address] [facility] Comment on above: Non- GFR Calc Immunoglobulin E 91 IU/mL 6-[address] [facility] Miscellaneous Test See comment [facility] Comment on above: TEST RESULT LIMITSIB [...] developed and its performance characteristics determined by [employer]. It has not been cleared or approved by the Food and Drug Administration. The FDA has determined that such clearance or approval is not necessary.Atypical pANCA Negative NegativeCommentsPattern is not suggestive of Inflammatory Bowel Disease. ___ TESTING PERFORMED AT [facility]. ORIGINAL REPORT ON FILE IN LAB CONTAINS ADDITIONAL TEST SITE INFORMATION. MEAT GRADER Antibody 0.3 AI 0.0-0.[address] [facility] Platelets bldOrdered By: Yari Velez on 04-29-2022 Platelets (Bld) [#/Vol] 456 10*3/uL 150-[address] [facility] Serum DNA double strand anti body assay (units/volume)Ordered By: Stephany Velez on 04-29-2022 DNA double strand Ab Qn (S) [IU]/mL 0-[address] [facility] Comment on above: Negative <5 Equivoca l 5 - 9 Positive >9 Serum Hollie-1 antibody assay (u nits/volume)Ordered By: Stephany Velez on 04-29-2022 Hollie-1 extractable nuclear Ab Qn (S) <0.2 AI 0.0-0.[address] [facility] Serum Scl-70 extractable nuc lear antibody assay (units/volume)Ordered By: Stpehany Velez on 04-29-2022 SCL-70 extractable nuclear Ab Qn (S) <0.2 AI 0.0-0.[address] [facility] Serum Catalan extractable nucl ear antibody detectionOrdered By: Stephany Velez on 04-29-2022 Catalan extractable nuclear Ab Ql (S) <0.2 AI 0.0-0.[address] [facility] Serum [id number] measu rement by electrophoresisOrdered By: Stephany Velez on 04-29-2022 Alpha 1 globulin Elph [Mass/Vol] 0.2 g/dL 0.0-0.[address] [facility] Alpha 1 globulin Elph [Mass/Vol] 0.9 g/dL 0.4-1.[address] [facility] Serum classic neutrophil cyt oplasmic antibody assay (units/volume)Ordered By: Stephany Velez on 04-29-2022 Neutrophil cytoplasmic Ab.classic Qn (S) Comment titer Neg:<1:[address] [facility] Comment on above: Results are Indeterm inate. Serum globulin measurement ( mass/volume)Ordered By: Stephany Velez on 04-29-2022 Globulin (S) [Mass/Vol] 3.9 g/dL 2.2-3.9 [facility] Serum or plasma C reactive p rotein measurement (mass/volume)Ordered By: Stephany Velez on 04-29-2022 CRP [Mass/Vol] 25.60 mg/L 0.0-3.[address] [facility] Comment on above: C-Reactive Protein ( CRP) provides useful information for thediagnosis, therapy and monitoring of inflammatory processesand associated diseases. For the evaluation of Relative Riskfor Cardiovascular Disease, a High Sensitivity CRP (HSCRP)should be ordered. Serum or plasma IgA measurem ent (mass/volume)Ordered By: Stephany Velez on 04-29-2022 IgA [Mass/Vol] 204 mg/dL 87-[address] [facility] Serum or plasma IgG measurem ent (mass/volume)Ordered By: Stephany Velez on 04-29-2022 IgG [Mass/Vol] 1747 mg/dL 586-[address] [facility] Serum or plasma IgM measurem ent (mass/volume)Ordered By: Stephany Velez on 04-29-2022 IgM [Mass/Vol] 124 mg/dL 26-[address] [facility] Serum or plasma albumin janette urement (mass/volume)Ordered By: Stephany Velez on 04-29-2022 Albumin [Mass/Vol] 3.4 g/dL 3.2-5.0 [facility] Serum or plasma albumin/glob ulin mass ratioOrdered By: Stephany Velez on 04-29-2022 Albumin/Globulin [Mass ratio] 0.8 {ratio} 0.9-2.[address] [facility] Serum or plasma beta globuli n measurement by electrophoresis (mass/volume)Ordered By: Stephany Velez on 04-29-2022 Beta globulin Elph [Mass/Vol] 1.1 g/dL 0.7-1.[address] [facility] Serum or plasma calcium janette urement (mass/volume)Ordered By: Stephany Velez on 04-29-2022 Calcium [Mass/Vol] 8.9 mg/dL 8.5-10.1 [facility] Serum or plasma choriogonado tropin detectionOrdered By: Dr. Daley on 04-29-2022 HCG ( test) Ql < 1 mIU/mL <4 [facility] Comment on above: hCG levels with Gest ational AgeGestational Age hCG mIU/mL (IU/L)0.2 - 1 week 5 - 501-2 weeks 50 - 5002-3 weeks 100 - 74147-7 weeks 500 - 479364-7 weeks 1000 - 312083-3 weeks 85410 - 100,0006-8 weeks 43088 - 200,0002-3 months 28781 - 100,000 Serum or plasma creatinine m easurement (mass/volume)Ordered By: Stephany Velez on 04-29-2022 Creatinine [Mass/Vol] 0.69 mg/dL 0.55-1.02 [facility] Comment on above: The validity of the calculated GFR & GFRAA in patients over 70 years has not been determined. Clinical correlation is essential. Serum or plasma gamma globul in measurement by electrophoresis (mass/volume)Ordered By: Stephany Velez on 04-29-2022 Gamma globulin Elph [Mass/Vol] 1.6 g/dL 0.4-1.[address] [facility] Serum or plasma immunoelectr ophoresis interpretation (nominal result)Ordered By: Stephany Velez on 04-29-2022 Interpretation IEP [Interp] Comment . [facility] Comment on above: No monoclonality det ected. Serum or plasma urea nitroge n measurement (mass/volume)Ordered By: Stephany Velez on 04-29-2022 Urea nitrogen [Mass/Vol] 10 mg/dL 7-[address] [facility] Serum perinuclear neutrophil cytoplasmic antibody titer by immunofluorescenceOrdered By: Stephany Velez on 04-29-2022 Neutrophil cytoplasmic Ab.perinuclear IF (S) [Titer] <1:20 titer Neg:<1:[address] [facility] Comment on above: The presence of posi tive fluorescence exhibiting P-ANCA orC-ANCA patterns alone is not specific for the diagnosis ofWegener's Granulomatosis (WG) or microscopic polyangiitis.Decisions about treatment should not be based solely onANCA IFA results. The International ANCA Group Consensusrecommends follow up testing of positive sera with both HI-3 and MPO-ANCA enzyme immunoassays. As many as 5% serumsamples are positive only by EIA. Ref. AM J Clin Tgendv3181;111:507-513. Serum tissue transglutaminas e IgA antibody assay (units/volume)Ordered By: Stephany Velez on 04-29-2022 tTG IgA Qn (S) <2 U/mL 0-[address] [facility] Comment on above: Negative 0 - 3 Weak Positive 4 - 10 Positive >10 Tissue Transglutaminase (tTG) has been identified as the endomysial antigen. Studies have demonstr- ated that endomysial IgA antibodies have over 99% specificity for gluten sensitive enteropathy. Thin prep Papanicolaou smear with manual screeningOrdered By: Stephany Velez on 04-29-2022 Thin prep Papanicolaou smear with manual screening 18 U/L 15-[address] [facility] Thin prep Papanicolaou smear with manual screening 5 5-[address] [facility] Thin prep Papanicolaou smear with manual screening 0.9 0.7-1.[address] [facility] Total protein bloodOrdered B y: Stephany Velez on 04-29-2022 Protein [Mass/Vol] 7.2 g/dL 6.0-8.5 [facility] Serum or plasma choriogonado tropin detectionOrdered By: Dr. Daley on 04-13-2022 HCG ( test) Ql 128 mIU/mL <4 [facility] Comment on above: hCG levels with Gest ational AgeGestational Age hCG mIU/mL (IU/L)0.2 - 1 week 5 - 501-2 weeks 50 - 5002-3 weeks 100 - 35502-7 weeks 500 - 616818-4 weeks 1000 - 199912-2 weeks 98946 - 100,0006-8 weeks 15021 - 200,0002-3 months 36026 - 100,000 Serum or plasma choriogonado tropin detectionOrdered By: Lidya Booker on 04-08-2022 HCG ( test) Ql 267 mIU/mL <4 [facility] Comment on above: hCG levels with Gest ational AgeGestational Age hCG mIU/mL (IU/L)0.2 - 1 week 5 - 501-2 weeks 50 - 5002-3 weeks 100 - 59254-6 weeks 500 - 033074-1 weeks 1000 - 510072-4 weeks 71967 - 100,0006-8 weeks 34980 - 200,0002-3 months 05687 - 100,000 Serum or plasma choriogonado tropin detectionOrdered By: Lidya Booker on 04-06-2022 HCG ( test) Ql 91 mIU/mL <4 [facility] Comment on above: hCG levels with Gest ational AgeGestational Age hCG mIU/mL (IU/L)0.2 - 1 week 5 - 501-2 weeks 50 - 5002-3 weeks 100 - 72774-2 weeks 500 - 240114-9 weeks 1000 - 241445-0 weeks 58500 - 100,0006-8 weeks 10519 - 200,0002-3 months 55972 - 100,000 Chlamydia trachomatis rRNA d etection by probe and target amplification methodOrdered By: Lidya Booker on 03-11-2022 C. trachomatis rRNA FRANCE+probe Ql (Unsp spec) Negative Negative [facility] Dilute Isaac's viper venom timeOrdered By: Lidya Booker on 03-11-2022 dRVVT Coag (PPP) [Time] 36.8 s 0.0-47.0 [facility] - Microbiology an d Antimicrobial susceptibilityOrdered By: Lidya Booker on 03-11-2022 N. gonorrhoeae DNA FRANCE+probe Ql (Unsp spec) Negative Negative [facility] Comment on above: Performed at: =G - [address] [id number] Director: Ese Pastor MD, Phone: [phone] No Panel Informationon 03-11 POC Trichomonas (Rapid) Negative [facility] No Panel InformationOrdered By: Lidya Booker on 03-11-2022 Anti-Cardiolipin IgM Antibody 14 MPL U/mL 0-[address] [facility] Comment on above: Negative: <13 Indete rminate: 13 - 20 Low-Med Positive: >20 - 80 High Positive: >80 Thyroid Stimulating Hormone (TSH) 3.26 uIU/mL 0.358-3.[address] [facility] Serum beta 2 glycoprotein 1 IgA antibody detectionOrdered By: Lidya Booker on 03-11-2022 Beta 2 glycoprotein 1 IgA Ql (S) <9 0-[address] [facility] Comment on above: Result Units: GPI [...] glycoprotein 1 IgG Ql (S) <9 0-[address] [facility] Comment on above: Result Units: GPI [...] glycoprotein 1 IgM Ql (S) <9 0-[address] [facility] Comment on above: Result Units: GPI Ig M unitsThe reference interval reflects a 3SD or 99th percentileinterval, which is thought to represent a potentiallyclinically significant result in accordance with theInternational Consensus Statement on the classificationcriteria for definitive antiphospholipid syndrome (APS). JThromb Haem 2006;4:295-306.Performed at: [facility] [employer] [id number] Director: Ayo Burns MD, Phone: [phone] at: [employer] [id number] Director: Xavier Salas PhD, Phone: [phone] Serum cardiolipin IgG antibo dy assay by immunoassay (units/volume)Ordered By: Lidya Booker on 03-11-2022 Cardiolipin IgG IA Qn (S) < 9 GPL U/mL 0-[address] [facility] Comment on above: Negative: <15 Indete rminate: 15 - 20 Low-Med Positive: >20 - 80 High Positive: >80 Serum or plasma cardiolipin IgA antibody assay (units/volume)Ordered By: Lidya Booker on 03-11-2022 Cardiolipin IgA Qn < 9 APL U/mL 0-11 [facility] Comment on above: Negative: <12 Indete rminate: 12 - 20 Low-Med Positive: >20 - 80 High Positive: >80 Thin prep Papanicolaou smear with manual screeningOrdered By: Lidya Booker on 03-11-2022 Thin prep Papanicolaou smear with manual screening 35.2 sec 0.0-47.[address] [facility] Thin prep Papanicolaou smear with manual screening 1.02 Ratio 0.00-1.[address] [facility] Thin prep Papanicolaou smear with manual screening 39.2 sec 0.0-51.[address] [facility] Comment on above: Effective March 30, 2022 PTT-LA reference interval will be changing to: 0.0 - 43.5 sec Thin prep Papanicolaou smear with manual screening Comment: . [facility] Comment on above: No lupus anticoagula nt was detected. Thrombin time in platelet po or plasmaOrdered By: Lidya Booker on 03-11-2022 Thrombin time Coag (PPP) [Time] 15.7 sec 0.0-23.[address] [facility] Serum or plasma choriogonado tropin detectionOrdered By: Lidya Booker on 03-03-2022 HCG ( test) Ql < 1 mIU/mL <4 [facility] Comment on above: hCG levels with Gest ational AgeGestational Age hCG mIU/mL (IU/L)0.2 - 1 week 5 - 501-2 weeks 50 - 5002-3 weeks 100 - 93129-9 weeks 500 - 664027-8 weeks 1000 - 534226-2 weeks 80880 - 100,0006-8 weeks 64810 - 200,0002-3 months 98551 - 100,000 Serum or plasma choriogonado tropin detectionOrdered By: Lidya Booker on 02-24-2022 HCG ( test) Ql 39 mIU/mL <4 [facility] Comment on above: hCG levels with Gest ational AgeGestational Age hCG mIU/mL (IU/L)0.2 - 1 week 5 - 501-2 weeks 50 - 5002-3 weeks 100 - 24541-7 weeks 500 - 966954-5 weeks 1000 - 846476-9 weeks 79204 - 100,0006-8 weeks 40587 - 200,0002-3 months 40860 - 100,000 Serum or plasma choriogonado tropin detectionOrdered By: Lidya Booker on 02-19-2022 HCG ( test) Ql 63 mIU/mL <4 [facility] Comment on above: hCG levels with Gest ational AgeGestational Age hCG mIU/mL (IU/L)0.2 - 1 week 5 - 501-2 weeks 50 - 5002-3 weeks 100 - 18947-4 weeks 500 - 817733-9 weeks 1000 - 551483-0 weeks 95539 - 100,0006-8 weeks 95274 - 200,0002-3 months 08282 - 100,000 CBC (INCLUDES DIFF/PLT)on Basophils (Bld) [#/Vol] 0.045 10*3/uL Normal 0-200 [facility] Comment on above: Performed By: #### [id number] #### [facility] [address], [address] [place] [address] Mitigation Supervisor: Sheng Park MD Basophils/100 WBC (Bld) 0.4 % Normal Q uest Diagnostics Comment on above: Performed By: #### 6 399 #### [facility] [address] Mitigation Supervisor: Sheng Park MD Eosinophils (Bld) [#/Vol] 0.192 10*3/uL Normal 15-500 [facility] Comment on above: Performed By: #### 6 399 #### [facility] [address] [address] [place] [address] Mitigation Supervisor: Sheng Park MD Eosinophils/100 WBC (Bld) 1.7 % Normal [facility] Comment on above: Performed By: #### 6 399 #### [facility], [address] [place] [address] Mitigation Supervisor: Sheng Park MD Erythrocyte distribution width (RBC) [Ratio] 15.4 % High 11.0-15.0 [facility] Comment on above: Performed By: #### 6 399 #### [facility] [address], [address] [place] [address] Mitigation Supervisor: Sheng Park MD Hematocrit (Bld) [Volume fraction] 38.5 % Normal 35.0-45.0 [facility] Comment on above: Performed By: #### 6 399 #### [facility] [address], [address] [place] [address] Mitigation Supervisor: Sheng Park MD Hemoglobin (Bld) [Mass/Vol] 12.1 g/dL Normal 11.7-15.5 [facility] Comment on above: Performed By: #### 6 399 #### [facility], [address] [place] [address] Mitigation Supervisor: Sheng Park MD Lymphocytes (Bld) [#/Vol] 2.949 10*3/uL Normal 850-3900 [facility] Comment on above: Performed By: #### 6 399 #### [facility] [address] [address] , [address] [place] [address] Mitigation Supervisor: Sheng Park MD Lymphocytes/100 WBC (Bld) 26.1 % Normal [facility] Comment on above: Performed By: #### 6 399 #### [facility] [address] [address] , [address] [place] [address] Mitigation Supervisor: Sheng Park MD MCH (RBC) [Entitic mass] 23.2 pg Low 27.0-33.0 [facility] Comment on above: Performed By: #### 6 399 #### [facility] [address] [address] , [address] [place] [address] Mitigation Supervisor: Sheng Park MD MCHC (RBC) [Mass/Vol] 31.4 g/dL Low 32.0-36.[address] [facility] Comment on above: Performed By: #### 6 399 #### [facility] [address] [address] , [address] [place] [address] Mitigation Supervisor: Sheng Park MD MCV (RBC) [Entitic vol] 73.8 fL Low 80.0-100.0 [facility] Comment on above: Performed By: #### 6 399 #### [facility] [address] [address] , [address] [place], [place] [id number] Mitigation Supervisor: Sheng Park MD Monocytes (Bld) [#/Vol] 0.633 10*3/uL Normal 200-950 [facility] Comment on above: Performed By: #### 6 399 #### [facility] [address] [address] , [address] [place] [address] Mitigation Supervisor: Sheng Park MD Monocytes/100 WBC (Bld) 5.6 % Normal [facility] Comment on above: Performed By: #### 6 399 #### [facility] , [address] [place] [address] Mitigation Supervisor: Sheng Park MD Neutrophils (Bld) [#/Vol] 7.481 10*3/uL Normal 8110-0210 [facility] Comment on above: Performed By: #### 6 399 #### [facility] [address] [address] , [address] [place] [address] Mitigation Supervisor: Sheng Park MD Neutrophils/100 WBC (Bld) 66.2 % Normal [facility] Comment on above: Performed By: #### 6 399 #### [facility] [address] [address] , [address] [place] [address] Mitigation Supervisor: Sheng Park MD Platelet mean volume (Bld) [Entitic vol] 11.0 fL Normal 7.5-12.5 [facility] Comment on above: Performed By: #### 6 399 #### [facility] [address] [address] , [address] [place] [address] Mitigation Supervisor: Sheng Park MD Platelets (Bld) [#/Vol] 454 10*3/uL High 140-400 [facility] Comment on above: Performed By: #### 6 399 #### [facility] [address] [address] , [address] [place] [address] Mitigation Supervisor: Sheng Park MD RBC (Bld) [#/Vol] 5.22 10*6/uL High 3.80-5.10 [facility] Comment on above: Performed By: #### 6 399 #### [facility] , [address] Mitigation Supervisor: Sheng Park MD WBC (Bld) [#/Vol] 11.3 10*3/uL High 3.8-10.8 [facility] Comment on above: Performed By: #### 6 399 #### [facility], [address] [place] [id number] Mitigation Supervisor: Sheng Park MD VITAMIN D,25-OH,TOTAL,IAon 1 03-27-2019 [...] D, (D2,D3), LC/MS/MS is recommended: order code 17122 (patients >2yrs). See Note 1 Note 1 For additional information, please refer to [email or web address] (This link is being provided for informational/ educational purposes only.) Performed By: #### 6 399 #### [facility], [address] [place], [place] [id number] Mitigation Supervisor: Sheng Park MD Free T3on 10-19-2019 Free T3 [Mass/Vol] 3.3 pg/mL Normal 2.3-4.1 [facility] Comment on above: Performed By: #### F REET3, MICRO #### [facility] Routine Lab [address] [place] [address] Hemoglobin A1con 10-19-2019 HbA1c (Bld) [Mass fraction] 5.6 % Normal 4.3-5.6 [facility] Comment on above: Performed By: #### H BA1C #### [facility] Routine Lab [address] [place] [address] HbA1c (Bld) [Mass fraction] 114 mg/dL Normal [facility] Comment on above: Performed By: #### H BA1C #### [facility] Routine Lab [address] [place] [address] PTH, Intact[place] 10-19-2019 PTH, Intact 34 pg/mL Normal 15-65 [facility] Comment on above: Performed By: #### P THI #### [facility] Routine Lab [address] [place] [address] TPO Antibodyon 10-19-2019 TPO Antibody <1.0 Normal <5.6 [facility] Comment on above: Performed By: #### F REET3, MICRO #### [facility] Routine Lab [address] [place] [address] Vital Signs Date Time Vital Sign Value Performing Clinician Faci lity 11-13-2024 13:13-0400 Body height 165.7 cm Mary Tirado MD Work Phone: [facility] 11-13-2024 13:13-0400 Body mass index (BMI) [Ratio] 39.96 kg/m2 Mary Tirado MD Work Phone: [facility] 11-13-2024 13:13-0400 Body weight 109.77 kg Mary Tirado MD Work Phone: [facility] 11-13-2024 13:13-0400 Diastolic blood pressure 99 mm[Hg] Mary Tirado MD Work Phone: [facility] 11-13-2024 13:13-0400 Heart rate 73 /min Mary Tirado MD Work Phone: [facility] 11-13-2024 13:13-0400 Systolic blood pressure 144 mm[Hg] Mary Tirado MD Work Phone: [facility] 08-14-2024 08:06-0400 Body height 167.64 cm [employer] PA-C Work Phone: [facility] 08-14-2024 08:04-0400 Body mass index (BMI) [Ratio] 40.7 kg/m2 [employer] PA-C Work Phone: [facility] 08-14-2024 08:04-0400 Body weight 114.47 kg [employer] PA-C Work Phone: [facility] 08-14-2024 08:04-0400 Diastolic blood pressure 82 mm[Hg] [employer] PA-C Work Phone: [facility] 08-14-2024 08:04-0400 Systolic blood pressure 131 mm[Hg] [employer] PA-C Work Phone: [facility] 08-01-2024 12:00-0400 Body temperature 97.8 [degF] [employer] PA-C Work Phone: [facility] 08-01-2024 12:00-0400 Diastolic blood pressure 63 mm[Hg] [employer] PA-C Work Phone: [facility] 08-01-2024 12:00-0400 Heart rate 72 /min [employer] PA-C Work Phone: [facility] 08-01-2024 12:00-0400 Respiratory rate 16 /min [employer] PA-C Work Phone: [facility] 08-01-2024 12:00-0400 SaO2% (BldA) [Mass fraction] 100 % [employer] PA-C Work Phone: [facility] 08-01-2024 12:00-0400 Systolic blood pressure 137 mm[Hg] [employer] PA-C Work Phone: [facility] 08-01-2024 10:05-0400 Body height 167.64 cm [employer] PA-C Work Phone: [facility] 08-01-2024 10:05-0400 Body mass index (BMI) [Ratio] 40.2 kg/m2 [employer] PA-C Work Phone: [facility] 08-01-2024 10:05-0400 Body weight 113.2 kg [employer] PA-C Work Phone: [facility] 07-04-2024 11:50-0400 Body height 167.64 cm [employer] PA-C Work Phone: [facility] 07-04-2024 11:01-0400 Body mass index (BMI) [Ratio] 40.7 kg/m2 [employer] PA-C Work Phone: [facility] 07-04-2024 11:01-0400 Body weight 114.47 kg [employer] PA-C Work Phone: [facility] 07-04-2024 11:01-0400 Diastolic blood pressure 89 mm[Hg] [employer] PA-C Work Phone: [facility] 07-04-2024 11:01-0400 Systolic blood pressure 143 mm[Hg] [employer] PA-C Work Phone: [facility] 06-28-2024 09:33-0400 Body height 167.64 cm [employer] PA-C Work Phone: [facility] 06-28-2024 09:33-0400 Body mass index (BMI) [Ratio] 40.8 kg/m2 [employer] PA-C Work Phone: [facility] 06-28-2024 09:33-0400 Body weight 114.75 kg [employer] PA-C Work Phone: [facility] 06-28-2024 09:22-0400 Diastolic blood pressure 76 mm[Hg] [employer] PA-C Work Phone: [facility] 06-28-2024 09:22-0400 Heart rate 94 /min [employer] PA-C Work Phone: [facility] 06-28-2024 09:22-0400 SaO2% (BldA) [Mass fraction] 98 % [employer] PA-C Work Phone: [facility] 06-28-2024 09:22-0400 Systolic blood pressure 111 mm[Hg] [employer] PA-C Work Phone: [facility] 06-28-2024 01:01-0400 Body temperature 98.1 [degF] [employer] PA-C Work Phone: [facility] 06-28-2024 01:01-0400 Diastolic blood pressure 70 mm[Hg] [employer] PA-C Work Phone: [facility] 06-28-2024 01:01-0400 Heart rate 68 /min [employer] PA-C Work Phone: [facility] 06-28-2024 01:01-0400 Respiratory rate 16 /min [employer] PA-C Work Phone: [facility] 06-28-2024 01:01-0400 SaO2% (BldA) [Mass fraction] 100 % [employer] PA-C Work Phone: [facility] 06-28-2024 01:01-0400 Systolic blood pressure 118 mm[Hg] [employer] PA-C Work Phone: [facility] 06-27-2024 23:01-0400 Body height 167.64 cm [employer] PA-C Work Phone: [facility] 06-27-2024 23:01-0400 Body mass index (BMI) [Ratio] 41.1 kg/m2 [employer] PA-C Work Phone: [facility] 06-27-2024 23:01-0400 Body weight 115.57 kg [employer] PA-C Work Phone: [facility] 06-27-2024 14:31-0400 Body mass index (BMI) [Ratio] 40.8 kg/m2 [employer] PA-C Work Phone: [facility] 06-27-2024 14:31-0400 Body weight 114.81 kg Xenia [employer] PA-C Work Phone: [facility] 06-27-2024 14:31-0400 Diastolic blood pressure 86 mm[Hg] Xenia [employer] PA-C Work Phone: [facility] 06-27-2024 14:31-0400 Systolic blood pressure 123 mm[Hg] [employer]enia [employer] PA-C Work Phone: [facility] 06-19-2024 08:43-0400 Body mass index (BMI) [Ratio] 40.4 kg/m2 [employer] PA-C Work Phone: [facility] 06-19-2024 08:43-0400 Body weight 113.56 kg [employer]enia [employer] PA-C Work Phone: [facility] 06-19-2024 08:43-0400 Diastolic blood pressure 73 mm[Hg] Xenia [employer] PA-C Work Phone: [facility] 06-19-2024 08:43-0400 Systolic blood pressure 117 mm[Hg] Xenia [employer] PA-C Work Phone: [facility] 06-17-2024 00:26-0400 Heart rate 92 /min Xenia [employer] PA-C Work Phone: [facility] 06-17-2024 00:26-0400 Respiratory rate 16 /min Xenia [employer] PA-C Work Phone: [facility] 06-17-2024 00:24-0400 Body temperature 98.3 [degF] Xenia [employer] PA-C Work Phone: [facility] 06-17-2024 00:24-0400 Diastolic blood pressure 92 mm[Hg] [employer] PA-C Work Phone: [facility] 06-17-2024 00:24-0400 SaO2% (BldA) [Mass fraction] 99 % Xenia Herm[employer] PA-C Work Phone: [facility] 06-17-2024 00:24-0400 Systolic blood pressure 137 mm[Hg] [employer] PA-C Work Phone: [facility] 06-16-2024 22:26-0400 Body height 167.64 cm [employer] PA-C Work Phone: [facility] 06-16-2024 22:26-0400 Body mass index (BMI) [Ratio] 40.8 kg/m2 [employer] PA-C Work Phone: [facility] 06-16-2024 22:26-0400 Body weight 114.75 kg [employer] PA-C Work Phone: [facility] 05-29-2024 08:59-0400 Body height 167.64 cm [employer] PA-C Work Phone: [facility] 05-29-2024 08:58-0400 Body mass index (BMI) [Ratio] 41.2 kg/m2 [employer] PA-C Work Phone: [facility] 05-29-2024 08:58-0400 Body weight 115.89 kg [employer] PA-C Work Phone: [facility] 05-29-2024 08:58-0400 Diastolic blood pressure 77 mm[Hg] [employer] PA-C Work Phone: [facility] 05-29-2024 08:58-0400 Systolic blood pressure 126 mm[Hg] [employer] PA-C Work Phone: [facility] 05-11-2024 08:17-0400 Body height 165.7 cm Memo Campbell MD Work Phone: [facility] Comment on above: [facility] 05-11-2024 08:17-0400 Body mass index (BMI) [Ratio] 42.14 kg/m2 Memo Campbell MD Work Phone: [facility] 05-11-2024 08:17-0400 Body temperature 97.59 [degF] Memo Campbell MD Work Phone: [facility] 05-11-2024 08:17-0400 Body weight 115.76 kg Memo Campbell MD Work Phone: [facility] 05-11-2024 08:17-0400 Diastolic blood pressure 84 mm[Hg] Memo Campbell MD Work Phone: [facility] 05-11-2024 08:17-0400 Heart rate 80 /min Memo Campbell MD Work Phone: [facility] 05-11-2024 08:17-0400 Respiratory rate 16 /min Memo Campbell MD Work Phone: [facility] 05-11-2024 08:17-0400 Systolic blood pressure 126 mm[Hg] Memo Campbell MD Work Phone: [facility] 03-13-2024 13:15-0500 Body height 167.64 cm [employer] Work Phone: [facility] 03-13-2024 13:13-0500 Body mass index (BMI) [Ratio] 42.7 kg/m2 [employer] PA-C Work Phone: [facility] 03-13-2024 13:13-0500 Body weight 119.97 kg [employer] PA-C Work Phone: [facility] 03-13-2024 13:13-0500 Diastolic blood pressure 90 mm[Hg] [employer] PA-C Work Phone: [facility] 03-13-2024 13:13-0500 Systolic blood pressure 133 mm[Hg] [employer] PA-C Work Phone: [facility] 03-10-2024 17:34-0500 Body temperature 97.6 [degF] Xenia Hermiston PA-C Work Phone: [facility] 03-10-2024 17:34-0500 Diastolic blood pressure 69 mm[Hg] Xenia Hermiston PA-C Work Phone: [facility] 03-10-2024 17:34-0500 Heart rate 72 /min [employer] PA-C Work Phone: [facility] 03-10-2024 17:34-0500 Respiratory rate 15 /min [employer] PA[employer]C Work Phone: [facility] 03-10-2024 17:34-0500 SaO2% (BldA) [Mass fraction] 98 % [employer] PA-C Work Phone: [facility] 03-10-2024 17:34-0500 Systolic blood pressure 131 mm[Hg] Xenia Hermiston PA-C Work Phone: [facility] 03-10-2024 15:02-0500 Body mass index (BMI) [Ratio] 42.3 kg/m2 [employer] PA-C Work Phone: [facility] 03-10-2024 15:02-0500 Body weight 118.84 kg [employer] PA-C Work Phone: [facility] 03-02-2024 09:02-0500 Body mass index (BMI) [Ratio] 43.7 kg/m2 [employer] PA-C Work Phone: [facility] 03-02-2024 09:02-0500 Body weight 122.98 kg Xenia Hermiston PA-C Work Phone: [facility] 03-02-2024 09:02-0500 Diastolic blood pressure 86 mm[Hg] [employer] PA-C Work Phone: [facility] 03-02-2024 09:02-0500 Systolic blood pressure 156 mm[Hg] [employer] PA-C Work Phone: [facility] 02-11-2024 09:29-0500 Body height 165.1 cm Chely Garcia TABLE RUNNER - OPHTHALMOLOGY SURGICAL TECHNICIAN Work Phone: [facility] 02-11-2024 09:29-0500 Body mass index (BMI) [Ratio] 45.76 kg/m2 Chely Garcia TABLE RUNNER - OPHTHALMOLOGY SURGICAL TECHNICIAN Work Phone: [facility] 02-11-2024 09:29-0500 Body weight 124.74 kg Chely Garcia TABLE RUNNER - OPHTHALMOLOGY SURGICAL TECHNICIAN Work Phone: [facility] 02-11-2024 09:29-0500 Diastolic blood pressure 88 mm[Hg] Chely Garcia TABLE RUNNER - OPHTHALMOLOGY SURGICAL TECHNICIAN Work Phone: [facility] 02-11-2024 09:29-0500 Heart rate 76 /min Chely Garcia TABLE RUNNER - OPHTHALMOLOGY SURGICAL TECHNICIAN Work Phone: [facility] 02-11-2024 09:29-0500 SaO2% (BldA) [Mass fraction] 96 % Chely Garcia TABLE RUNNER - OPHTHALMOLOGY SURGICAL TECHNICIAN Work Phone: [facility] 02-11-2024 09:29-0500 Systolic blood pressure 120 mm[Hg] Chely Garcia TABLE RUNNER - OPHTHALMOLOGY SURGICAL TECHNICIAN Work Phone: [facility] 11-15-2023 12:35-0400 Body height 165.7 cm [employer] PA-C Work Phone: [facility] Comment on above: [facility] 11-15-2023 12:35-0400 Body mass index (BMI) [Ratio] 47.29 kg/m2 Miley Zupke PA-C Work Phone: [facility] 11-15-2023 12:35-0400 Body temperature 97.39 [degF] Miley Zupke PA-C Work Phone: [facility] 11-15-2023 12:35-0400 Body weight 129.91 kg Miley Zupke PA-C Work Phone: [facility] Comment on above: [facility] 11-15-2023 12:35-0400 Diastolic blood pressure 90 mm[Hg] Miley Zupke PA-C Work Phone: [facility] 11-15-2023 12:35-0400 Heart rate 94 /min Miley Zupke PA-C Work Phone: [facility] 11-15-2023 12:35-0400 Respiratory rate 16 /min Miley Zupke PA-C Work Phone: [facility] 11-15-2023 12:35-0400 Systolic blood pressure 133 mm[Hg] Miley Z[employer]ke PA-C Work Phone: [facility] 11-02-2023 06:53-0400 Body temperature 97.39 [degF] Rao Mudrakola DO Work Phone: [facility] 11-02-2023 06:53-0400 Diastolic blood pressure 92 mm[Hg] Rao Mudrakola DO Work Phone: [facility] 11-02-2023 06:53-0400 Heart rate 87 /min Rao Mudrakola DO Work Phone: [facility] 11-02-2023 06:53-0400 SaO2% (BldA) [Mass fraction] 96 % Rao Mudrakola DO Work Phone: [facility] 11-02-2023 06:53-0400 Systolic blood pressure 131 mm[Hg] Rao Mudrakola DO Work Phone: [facility] 11-01-2023 17:56-0400 Respiratory rate 18 /min Rao Mudrakola DO Work Phone: [facility] 10-28-2023 20:43-0400 Body height 167.6 cm Rao Mudrakola DO Work Phone: [facility] 10-28-2023 20:43-0400 Body mass index (BMI) [Ratio] 49.23 kg/m2 Rao Mcdonough DO Work Phone: [facility] 10-28-2023 20:43-0400 Body weight 138.35 kg Rao Mcdonough DO Work Phone: [facility] 10-27-2023 19:37-0400 Body temperature 98.71 [degF] Fernando Gombash DO Work Phone: [employer] 10-27-2023 19:37-0400 Diastolic blood pressure 84 mm[Hg] Fernando [facility]ombash DO [facility] 10-27-2023 19:37-0400 Heart rate 70 /min Fernando Gombash DO Work Phone[facility] 10-27-2023 19:37-0400 Respiratory rate 16 /min Fernando Gombash DO Work Phone: [employer] 10-27-2023 19:37-0400 SaO2% (BldA) [Mass fraction] 97 % Fernando Gombash DO Work Phone[facility] 10-27-2023 19:37-0400 Systolic blood pressure 136 mm[Hg] Fernando Gombash DO Work Phone: [facility] 10-26-2023 20:12-0400 Body height 167.6 cm Fernando Gombash DO Work Phone: [employer] 10-26-2023 20:12-0400 Body mass index (BMI) [Ratio] 49.23 kg/m2 Fernando Gombash DO Work Phone: [employer] 10-26-2023 20:12-0400 Body weight 138.35 kg Fernando Gombash DO Work Phone: [facility] 08-23-2023 11:30-0400 Body height 167.6 cm Hyun Hirsch PA-C Work Phone: [facility] 08-23-2023 11:30-0400 Body mass index (BMI) [Ratio] 52.97 kg/m2 Hyun Gerstenmaier PA-C Work Phone: [facility] 08-23-2023 11:30-0400 Body weight 148.87 kg Hyun Gerstenmaier PA-C Work Phone: [facility] 08-23-2023 11:30-0400 Diastolic blood pressure 72 mm[Hg] Hyun Gerstenmaier PA-C Work Phone: [facility] 08-23-2023 11:30-0400 Heart rate 114 /min Hyun Gerstenmaier PA-C Work Phone: [facility] 08-23-2023 11:30-0400 Respiratory rate 18 /min Hyun Gerstenmaier PA-C Work Phone: [facility] 08-23-2023 11:30-0400 SaO2% (BldA) [Mass fraction] 96 % Hyun Gerstenmaier PA-C Work Phone: [facility] Comment on above: 08-23-2023 11:30-0400 Systolic blood pressure 126 mm[Hg] Hyun Gerstenmaier PA-C Work Phone: [facility] 08-23-2023 08:36-0400 Body height 167.6 cm [employer] Work Phone: [facility] 08-23-2023 08:36-0400 Body mass index (BMI) [Ratio] 52.84 kg/m2 [employer] Work Phone: [facility] 08-23-2023 08:36-0400 Body weight 148.51 kg [employer] Work Phone: [facility] 08-23-2023 08:36-0400 Diastolic blood pressure 92 mm[Hg] [employer] Work Phone: [facility] 08-23-2023 08:36-0400 Heart rate 73 /min [employer] Work Phone: [facility] 08-23-2023 08:36-0400 SaO2% (BldA) [Mass fraction] 98 % [employer] Work Phone: [facility] 08-23-2023 08:36-0400 Systolic blood pressure 122 mm[Hg] [employer] Work Phone: [employer] [facility] 08-11-2023 12:32-0400 Body height 165.7 cm Miley Zupke PA-C Work Phone: [facility] Comment on above: [employer] 08-11-2023 12:32-0400 Body mass index (BMI) [Ratio] 55.45 kg/m2 Miley Zupke PA-C Work Phone: [facility] 08-11-2023 12:32-0400 Body temperature 96.91 [degF] Miley Zupke PA-C Work Phone: [facility] 08-11-2023 12:32-0400 Body weight 152.32 kg Miley Zupke PA-C Work Phone: [facility] Comment on above: [employer] 08-11-2023 12:32-0400 Diastolic blood pressure 84 mm[Hg] Miley Zupke PA-C Work Phone: [facility] 08-11-2023 12:32-0400 Heart rate 101 /min Miley Zupke PA-C Work Phone: [facility] 08-11-2023 12:32-0400 Respiratory rate 18 /min Miley Zupke PA-C Work Phone: [facility] 08-11-2023 12:32-0400 Systolic blood pressure 114 mm[Hg] Miley Zupke PA-C Work Phone: [facility] 07-05-2023 13:11-0400 Body height 167.6 cm Matteo Abreu MD Work Phone: [facility] 07-05-2023 13:11-0400 Body mass index (BMI) [Ratio] 56.49 kg/m2 Matteo Abreu MD Work Phone: [facility] 07-05-2023 13:11-0400 Body weight 158.76 kg Matteo Abreu MD Work Phone: [facility] 07-05-2023 13:11-0400 Diastolic blood pressure 74 mm[Hg] Matteo Abreu MD Work Phone: [facility] 07-05-2023 13:11-0400 Heart rate 94 /min Matteo Abreu MD Work Phone: [facility] 07-05-2023 13:11-0400 Systolic blood pressure 100 mm[Hg] Matteo Abreu MD Work Phone: [facility] 06-17-2023 09:25-0400 Body height 165.7 cm Memo Campbell MD Work Phone: [facility] [facility] Comment on above: [facility] 06-17-2023 09:25-0400 Body mass index (BMI) [Ratio] 59.85 kg/m2 Memo Campbell MD Work Phone: [facility] 06-17-2023 09:25-0400 Body temperature 97.3 [degF] Memo Campbell MD Work Phone: [facility] 06-17-2023 09:25-0400 Body weight 164.38 kg Memo Campbell MD Work Phone: [facility] Comment on above: [facility] 06-17-2023 09:25-0400 Diastolic blood pressure 97 mm[Hg] Memo Campbell MD Work Phone: [facility] 06-17-2023 09:25-0400 Heart rate 114 /min Memo Campbell MD Work Phone: [facility] 06-17-2023 09:25-0400 Respiratory rate 18 /min Memo Campbell MD Work Phone: [facility] 06-17-2023 09:25-0400 Systolic blood pressure 152 mm[Hg] Memo Campbell MD Work Phone: [facility] 06-11-2023 07:59-0400 Body temperature 96.01 [degF] Artemio Colorado MD Work Phone: [facility] 06-11-2023 07:59-0400 Diastolic blood pressure 78 mm[Hg] Artemio Colorado MD Work Phone: [facility] 06-11-2023 07:59-0400 Heart rate 77 /min Artemio Colorado MD Work Phone: [facility] 06-11-2023 07:59-0400 Respiratory rate 16 /min Artemio Colorado MD Work Phone: [facility] 06-11-2023 07:59-0400 SaO2% (BldA) [Mass fraction] 98 % Artemio Colorado MD Work Phone: [facility] 06-11-2023 07:59-0400 Systolic blood pressure 129 mm[Hg] Artemio Colorado MD Work Phone: [facility] 06-09-2023 09:43-0400 Body height 165.7 cm Artemio Colorado MD Work Phone: [facility] 06-07-2023 14:20-0400 Body mass index (BMI) [Ratio] 61.46 kg/m2 Artemio Colorado MD Work Phone: [facility] 06-07-2023 14:20-0400 Body weight 168.74 kg Artemio Colorado MD Work Phone: [facility] 05-27-2023 08:24-0400 Body height 165.7 cm Memo Campbell MD Work Phone: [facility] Comment on above: [facility] 05-27-2023 08:24-0400 Body mass index (BMI) [Ratio] 61.5 kg/m2 Memo Campbell MD Work Phone: [facility] 05-27-2023 08:24-0400 Body temperature 97.59 [degF] Memo Campbell MD Work Phone: [facility] 05-27-2023 08:24-0400 Body weight 168.92 kg Memo Campbell MD Work Phone: [facility] 05-27-2023 08:24-0400 Diastolic blood pressure 87 mm[Hg] Memo Campbell MD Work Phone: [facility] 05-27-2023 08:24-0400 Heart rate 111 /min Memo Campbell MD Work Phone: [facility] 05-27-2023 08:24-0400 Respiratory rate 16 /min Memo Campbell MD Work Phone: [facility] 05-27-2023 08:24-0400 SaO2% (BldA) [Mass fraction] 97 % Memo Campbell MD Work Phone: [facility] 05-27-2023 08:24-0400 Systolic blood pressure 141 mm[Hg] Memo Campbell MD Work Phone: [facility] 05-21-2023 08:24-0400 Body temperature 97.9 [degF] Shauna Joy DO Work Phone: [employer] 05-21-2023 08:24-0400 Diastolic blood pressure 67 mm[Hg] Shauna Joy DO Work Phone: [facility] 05-21-2023 08:24-0400 Heart rate 94 /min Shauna Joy DO Work Phone: [employer] 05-21-2023 08:24-0400 Respiratory rate 16 /min Shauna Joy DO Work Phone: [employer] 05-21-2023 08:24-0400 SaO2% (BldA) [Mass fraction] 98 % Shauna Joy DO Work Phone: [facility] 05-21-2023 08:24-0400 Systolic blood pressure 118 mm[Hg] Shauna Joy DO Work Phone: [facility] 05-19-2023 23:34-0400 Body height 165.9 cm Shauna Joy DO Work Phone: [facility] 05-19-2023 22:12-0400 Body mass index (BMI) [Ratio] 62.63 kg/m2 Shauna Hamilton DO Work Phone: [facility] 05-19-2023 22:12-0400 Body weight 172.37 kg Shauna Hamilton DO Work Phone: [facility] 05-11-2023 13:09-0400 Body temperature 98.29 [degF] Memo Campbell MD Work Phone: [facility] 05-11-2023 13:09-0400 Diastolic blood pressure 93 mm[Hg] Memo Campbell MD Work Phone: [facility] 05-11-2023 13:09-0400 Heart rate 72 /min Memo Campbell MD Work Phone: [facility] 05-11-2023 13:09-0400 Respiratory rate 17 /min Memo Campbell MD Work Phone: [facility] 05-11-2023 13:09-0400 SaO2% (BldA) [Mass fraction] 92 % Memo Campbell MD Work Phone: [facility] 05-11-2023 13:09-0400 Systolic blood pressure 135 mm[Hg] Memo Campbell MD Work Phone: [facility] 05-10-2023 21:17-0400 Body height 167.6 cm Memo Campbell MD Work Phone: [facility] 05-10-2023 21:17-0400 Body mass index (BMI) [Ratio] 65.45 kg/m2 Memo Campbell MD Work Phone: [facility] 05-10-2023 21:17-0400 Body weight 183.93 kg Memo Campbell MD Work Phone: [facility] 04-08-2023 09:30-0500 Body height 165.7 cm Memo Campbell MD Work Phone: [facility] Comment on above: [facility] 04-08-2023 09:30-0500 Body mass index (BMI) [Ratio] 66.55 kg/m2 Memo Campbell MD Work Phone: [facility] 04-08-2023 09:30-0500 Body temperature 97.9 [degF] Memo Campbell MD Work Phone: [facility] 04-08-2023 09:30-0500 Body weight 182.8 kg Memo Campbell MD Work Phone: [facility] 04-08-2023 09:30-0500 Diastolic blood pressure 88 mm[Hg] Memo Campbell MD Work Phone: [facility] 04-08-2023 09:30-0500 Heart rate 98 /min Memo Campbell MD Work Phone: [facility] 04-08-2023 09:30-0500 Respiratory rate 16 /min Memo Campbell MD Work Phone: [facility] 04-08-2023 09:30-0500 Systolic blood pressure 140 mm[Hg] Memo Campbell MD Work Phone: [facility] 02-05-2023 12:37-0500 Body height 165.7 cm Mary Tirado MD Work Phone: [facility] 02-05-2023 12:37-0500 Body mass index (BMI) [Ratio] 65.1 kg/m2 Mary Tirado MD Work Phone: [facility] 02-05-2023 12:37-0500 Body weight 178.81 kg Mary Tirado MD Work Phone: [facility] 02-05-2023 12:37-0500 Diastolic blood pressure 85 mm[Hg] Mary Tirado MD Work Phone: [facility] 02-05-2023 12:37-0500 Heart rate 95 /min Mary Tirado MD Work Phone: [facility] 02-05-2023 12:37-0500 Systolic blood pressure 154 mm[Hg] Mary Tirado MD Work Phone: [facility] 01-25-2023 10:11-0500 Body height 165.1 cm Hyun Gerstenmaier PA-C Work Phone: [facility] 01-25-2023 10:11-0500 Body mass index (BMI) [Ratio] 65.73 kg/m2 Hyun Gerstenmaier PA-C Work Phone: [facility] 01-25-2023 10:11-0500 Body weight 179.17 kg Hyun Gerstenmaier PA-C Work Phone: [facility] 01-25-2023 10:11-0500 Diastolic blood pressure 84 mm[Hg] Hyun Gerstenmaier PA-C Work Phone: [facility] 01-25-2023 10:11-0500 Heart rate 88 /min Hyun Gerstenmaier PA-C Work Phone: [facility] 01-25-2023 10:11-0500 SaO2% (BldA) [Mass fraction] 96 % Hyun Gerstenmaier PA-C Work Phone: [facility] 01-25-2023 10:11-0500 Systolic blood pressure 128 mm[Hg] Hyun Gerstenmaier PA-C Work Phone: [facility] 01-18-2023 09:25-0500 Body height 165.7 cm Mary Tirado MD Work Phone: [facility] 01-18-2023 09:25-0500 Body mass index (BMI) [Ratio] 65.66 kg/m2 Mary Tirado MD Work Phone: [facility] 01-18-2023 09:25-0500 Body weight 180.35 kg Mary Tirado MD Work Phone: [facility] 01-18-2023 09:25-0500 Diastolic blood pressure 106 mm[Hg] Mary Tirado MD Work Phone: [facility] Comment on above: has a headache 01-18-2023 09:25-0500 Heart rate 84 /min Mary Tirado MD Work Phone: [facility] 01-18-2023 09:25-0500 Systolic blood pressure 148 mm[Hg] Mary Tirado MD Work Phone: [facility] Comment on above: has a headache 01-12-2023 12:48-0500 Body height 165.1 cm Matteo Abreu MD Work Phone: [facility] 01-12-2023 12:48-0500 Body mass index (BMI) [Ratio] 65.57 kg/m2 Matteo Abreu MD Work Phone: [facility] 01-12-2023 12:48-0500 Body weight 178.72 kg Matteo Abreu MD Work Phone: [facility] 01-12-2023 08:26-0500 Diastolic blood pressure 93 mm[Hg] Memo Campbell MD Work Phone: [facility] 01-12-2023 08:26-0500 Heart rate 94 /min Memo Campbell MD Work Phone: [facility] 01-12-2023 08:26-0500 Respiratory rate 18 /min Memo Campbell MD Work Phone: [facility] 01-12-2023 08:26-0500 SaO2% (BldA) [Mass fraction] 98 % Memo Campbell MD Work Phone: [facility] 01-12-2023 08:26-0500 Systolic blood pressure 137 mm[Hg] Memo Campbell MD Work Phone: [facility] 01-12-2023 07:05-0500 Body height 165.1 cm Memo Campbell MD Work Phone: [facility] 01-12-2023 07:05-0500 Body mass index (BMI) [Ratio] 65.57 kg/m2 Memo Campbell MD Work Phone: [facility] 01-12-2023 07:05-0500 Body temperature 97 [degF] Memo Campbell MD Work Phone: [facility] 01-12-2023 07:05-0500 Body weight 178.72 kg Memo Campbell MD Work Phone: [facility] 01-08-2023 14:06-0500 Body height 165.1 cm Delphine Sanchez MD Work Phone: [facility] 01-08-2023 14:06-0500 Body mass index (BMI) [Ratio] 66.06 kg/m2 Delphine Sanchez MD Work Phone: [facility] 01-08-2023 14:06-0500 Body weight 180.08 kg Delphine Sanchez MD Work Phone: [facility] 01-08-2023 14:06-0500 Diastolic blood pressure 68 mm[Hg] Delphine Sanchez MD Work Phone: [facility] 01-08-2023 14:06-0500 Heart rate 100 /min Delphine Sanchez MD Work Phone: [facility] 01-08-2023 14:06-0500 Systolic blood pressure 134 mm[Hg] Delphine Sanchez MD Work Phone: [facility] 12-14-2022 09:07-0400 Body height 165.7 cm Mary Tirado MD Work Phone: [facility] 12-14-2022 09:07-0400 Body mass index (BMI) [Ratio] 64.6 kg/m2 Mary Tirado MD Work Phone: [facility] 12-14-2022 09:07-0400 Body weight 177.45 kg Mary Tirado MD Work Phone: [facility] 12-14-2022 09:07-0400 Diastolic blood pressure 74 mm[Hg] Mary Tirado MD Work Phone: [facility] 12-14-2022 09:07-0400 Heart rate 92 /min Mary Tirado MD Work Phone: [facility] 12-14-2022 09:07-0400 Systolic blood pressure 118 mm[Hg] Mary Tirado MD Work Phone: [facility] 11-02-2022 13:30-0400 Body height 165.7 cm Mary Tirado MD Work Phone: [facility] 11-02-2022 13:30-0400 Body mass index (BMI) [Ratio] 64.4 kg/m2 Mray Tirado MD Work Phone: [facility] 11-02-2022 13:30-0400 Body weight 176.9 kg Mary Tirado MD Work Phone: [facility] 11-02-2022 13:30-0400 Diastolic blood pressure 88 mm[Hg] Mary Tirado MD Work Phone: [facility] 11-02-2022 13:30-0400 Heart rate 94 /min Mary Tirado MD Work Phone: [facility] 11-02-2022 13:30-0400 Systolic blood pressure 142 mm[Hg] Mary Tirado MD Work Phone: [facility] 09-24-2022 07:57-0400 Body height 165.1 cm PA-C [employer] Work Phone: [facility] 09-24-2022 07:57-0400 Body mass index (BMI) [Ratio] 64 kg/m2 PA-C [employer] Work Phone: [facility] 09-24-2022 07:57-0400 Body temperature 97.6 [degF] PA-C [employer] Work Phone: [facility] 09-24-2022 07:57-0400 Body weight 174.63 kg PA-C [employer] Work Phone: [facility] 09-24-2022 07:57-0400 Diastolic blood pressure 88 mm[Hg] PA-C [employer] Work Phone: [facility] 09-24-2022 07:57-0400 Heart rate 89 /min PA-C [employer] Work Phone: [facility] 09-24-2022 07:57-0400 Respiratory rate 18 /min PA-C [employer] Work Phone: [facility] 09-24-2022 07:57-0400 SaO2% (BldA) [Mass fraction] 96 % PA-C [employer] Work Phone: [facility] 09-24-2022 07:57-0400 Systolic blood pressure 139 mm[Hg] PA-C [employer] Work Phone: [facility] 09-10-2022 12:41-0400 Body height 165.7 cm Memo Campbell MD Work Phone: [facility] 09-10-2022 12:41-0400 Body mass index (BMI) [Ratio] 63.28 kg/m2 Memo Campbell MD Work Phone: [facility] 09-10-2022 12:41-0400 Body temperature 97.5 [degF] Memo Campbell MD Work Phone: [facility] 09-10-2022 12:41-0400 Body weight 173.82 kg Memo Campbell MD Work Phone: [facility] 09-10-2022 12:41-0400 Diastolic blood pressure 71 mm[Hg] Memo Campbell MD Work Phone: [facility] 09-10-2022 12:41-0400 Heart rate 90 /min Memo Campbell MD Work Phone: [facility] 09-10-2022 12:41-0400 Respiratory rate 20 /min Memo Campbell MD Work Phone: [facility] 09-10-2022 12:41-0400 Systolic blood pressure 129 mm[Hg] Memo Campbell MD Work Phone: [facility] 09-03-2022 10:23-0400 Body height 165.1 cm PA-C [employer] PA Work Phone: [facility] 09-03-2022 10:23-0400 Body mass index (BMI) [Ratio] 64.5 kg/m2 PA-C [employer] PA Work Phone: [facility] 09-03-2022 10:23-0400 Body weight 175.99 kg PA-C [employer]enia [employer] PA Work Phone: [facility] 09-03-2022 10:23-0400 Diastolic blood pressure 77 mm[Hg] PA-C Xenia Hermiston PA Work Phone: [facility] 09-03-2022 10:23-0400 Heart rate 90 /min PA-C Xenia Hermiston PA Work Phone: [facility] 09-03-2022 10:23-0400 Systolic blood pressure 146 mm[Hg] PA-C Xenia Hermiston PA Work Phone: [facility] 09-01-2022 16:30-0400 Body weight 173 kg PA-C Xenia Hermiston PA Work Phone: [facility] 07-27-2022 16:39-0400 Body height 167.64 cm PA-C Xenia Hermiston PA Work Phone: [facility] 07-27-2022 16:39-0400 Body weight 173.36 kg PA-C Xenia Hermiston PA Work Phone: [facility] 07-01-2022 15:52-0400 Body height 167.64 cm PA-C Xenia Hermiston PA Work Phone: [facility] 07-01-2022 15:52-0400 Body weight 174.9 kg PA-C Xenia Hermiston PA Work Phone: [facility] 06-29-2022 08:22-0400 Body mass index (BMI) [Ratio] 61.3 kg/m2 PA-C Xenia Hermiston PA Work Phone: [facility] 06-29-2022 08:22-0400 Body weight 172.36 kg PA-C Xenia Hermiston PA Work Phone: [facility] 06-29-2022 08:22-0400 Diastolic blood pressure 87 mm[Hg] PA-C Xenia Hermiston PA Work Phone: [facility] 06-29-2022 08:22-0400 Heart rate 82 /min PA-C Xenia Hermiston PA Work Phone: [facility] 06-29-2022 08:22-0400 SaO2% (BldA) [Mass fraction] 96 % PA-C Xenia Hermiston PA Work Phone: [facility] 06-29-2022 08:22-0400 Systolic blood pressure 150 mm[Hg] PA-C Xenia Hermiston PA Work Phone: [facility] 06-18-2022 14:56-0400 Body mass index (BMI) [Ratio] 61.3 kg/m2 PA-C Xenia Hermiston PA Work Phone: [facility] 06-18-2022 14:56-0400 Body weight 172.47 kg PA-C Xenia Hermiston PA Work Phone: [facility] 06-18-2022 14:56-0400 Diastolic blood pressure 94 mm[Hg] PA-C Xenia Hermiston PA Work Phone: [facility] 06-18-2022 14:56-0400 Systolic blood pressure 136 mm[Hg] PA-C Xenia Hermiston PA Work Phone: [facility] 06-11-2022 11:40-0400 Body temperature 98.8 [degF] PA-C Xenia Hermiston PA Work Phone: [facility] 06-11-2022 11:40-0400 Diastolic blood pressure 65 mm[Hg] PA-C Xenia Hermiston PA Work Phone: [facility] 06-11-2022 11:40-0400 Heart rate 95 /min PA-C Xenia Hermiston PA Work Phone: [facility] 06-11-2022 11:40-0400 Respiratory rate 18 /min PA-C Xenia Hermiston PA Work Phone: [facility] 06-11-2022 11:40-0400 SaO2% (BldA) [Mass fraction] 100 % PA-C Xenia Hermiston PA Work Phone: [facility] 06-11-2022 11:40-0400 Systolic blood pressure 126 mm[Hg] PA-C Xenia Hermiston PA Work Phone: [facility] 06-11-2022 09:42-0400 Body height 167.64 cm PA-C Xenia Hermiston PA Work Phone: [facility] 06-11-2022 09:42-0400 Body mass index (BMI) [Ratio] 60.5 kg/m2 PA-C Xenia Hermiston PA Work Phone: [facility] 06-11-2022 09:42-0400 Body weight 170 kg PA-C Xeina Hermiston PA Work Phone: [facility] 06-03-2022 16:11-0400 Body weight 172.63 kg PA-C Xenia Hermiston PA Work Phone: [facility] 05-20-2022 10:10-0400 Body height 167.64 cm PA-C Xenia Hermiston PA Work Phone: [facility] 05-20-2022 10:10-0400 Body weight 173.18 kg PA-C Xenia Hermiston PA Work Phone: [facility] 05-08-2022 14:53-0400 Body height 167.64 cm PA-C Xenia Hermiston PA Work Phone: [facility] 05-08-2022 14:52-0400 Body mass index (BMI) [Ratio] 61.7 kg/m2 PA-C Xenia Hermiston PA Work Phone: [facility] 05-08-2022 14:52-0400 Body weight 173.38 kg PA-C Xenia [employer] PA Work Phone: [facility] 05-08-2022 14:52-0400 Diastolic blood pressure 100 mm[Hg] PA-C [employer]enia [employer] PA Work Phone: [facility] 05-08-2022 14:52-0400 Systolic blood pressure 122 mm[Hg] PA-C Xenia Hermiston PA Work Phone: [facility] 04-29-2022 08:10-0500 Body height 167.64 cm PA-C [employer] Work Phone: [facility] 04-29-2022 08:10-0500 Body mass index (BMI) [Ratio] 61.4 kg/m2 PA-C [employer] Work Phone: [facility] 04-29-2022 08:10-0500 Body weight 172.81 kg PA-C Xenia [employer] Work Phone: [facility] 04-29-2022 08:10-0500 Diastolic blood pressure 93 mm[Hg] PA-C [employer] Work Phone: [facility] 04-29-2022 08:10-0500 Heart rate 83 /min PA-C [employer] Work Phone: [facility] 04-29-2022 08:10-0500 SaO2% (BldA) [Mass fraction] 97 % PA-C Xenia Hermiston PA Work Phone: [facility] 04-29-2022 08:10-0500 Systolic blood pressure 163 mm[Hg] PA-C [employer]enia [employer] Work Phone: [facility] 04-13-2022 15:32-0500 Body height 167.64 cm PA-C Xenia Hermiston PA Work Phone: [facility] 04-13-2022 15:32-0500 Body mass index (BMI) [Ratio] 62.8 kg/m2 PA-C Xenia Hermiston PA Work Phone: [facility] 04-13-2022 15:32-0500 Body weight 176.67 kg PA-C Xenia Hermiston PA Work Phone: [facility] 04-13-2022 15:32-0500 Diastolic blood pressure 90 mm[Hg] PA-C Xenia Hermiston PA Work Phone: [facility] 04-13-2022 15:32-0500 Systolic blood pressure 130 mm[Hg] PA-C Xenia Hermiston PA Work Phone: [facility] 03-11-2022 14:32-0500 Body height 167.64 cm PA-C Xenia Hermiston PA Work Phone: [facility] 03-11-2022 14:19-0500 Body mass index (BMI) [Ratio] 61.4 kg/m2 PA-C Xenia Hermiston PA Work Phone: [facility] 03-11-2022 14:19-0500 Body weight 172.59 kg PA-C Xenia Hermiston PA Work Phone: [facility] 03-11-2022 14:19-0500 Diastolic blood pressure 84 mm[Hg] PA-C Xenai Hermiston PA Work Phone: [facility] 03-11-2022 14:19-0500 Systolic blood pressure 126 mm[Hg] PA-C Xenia Hermiston PA Work Phone: [facility] Encounters Encounter Date Encounter Type Care Provider Facility Start: 11-13-2024 End: 11-13-2024 Office outpatient visit 25 minutes Mary Tirado MD Work Phone: [facility] Comment on above: Prediabetes (Primary Dx); Hypertension, unspecified type; Deficiency of other specified B group vitamins; Intestinal malabsorption, unspecified type; Screening, lipid Start: 11-13-2024 End: 11-13-2024 ambulatory MARY TIRADO [facility] Start: 08-21-2024 End: 08-21-2024 Emergency department patient visit [facility] Start: 08-17-2024 Encounter for other preprocedural examination Peggy Flynn [facility] Start: 08-16-2024 End: 08-16-2024 ambulatory [facility] Start: 08-14-2024 End: 08-14-[address] Peggy Flynn DO -[facility] Work Phone: Start: 08-14-2024 End: 08-14-2024 [facility] Work Phone: Start: 08-04-2024 End: 08-04-2024 ambulatory [facility] Start: 08-02-2024 End: 08-02-2024 ambulatory [facility] Start: 08-01-2024 Non-patient / Non-visit Dr. Amos Flynn DO [facility] Start: 08-01-2024 End: 08-01-2024 Admission to same day surgery center Dr. Peggy Flynn DO [facility] Start: 08-01-2024 End: 08-01-2024 ambulatory [facility] PA-C Work Phone: [facility] Work Phone: Start: 07-29-2024 End: 07-29-2024 ambulatory [employer]enia [employer] PA-C Work Phone: [facility] Work Phone: Start: 07-29-2024 End: 07-29-[address] Silviano Daley MD -Ultrasound [facility] Work Phone: Start: 07-29-2024 End: 07-29-2024 [facility] Facility[facility] Start: 07-19-2024 End: 07-19-2024 Subsequent hospital visit by physician Vidya Ott DO Work Phone: [facility] Comment on above: Recurrent loss without current Start: 07-19-2024 End: 07-19-2024 ambulatory VIDYA OTT [facility] Start: 07-19-2024 End: 07-19-2024 ambulatory SILVIANO DALEY [facility] Start: 07-04-2024 End: 07-04-[address] Silviano Daley MD -[facility] Work Phone: Start: 07-04-2024 End: 07-04-2024 [facility] Work Phone: [facility] Work Phone: Start: 07-04-2024 End: 07-04-2024 [facility] Start: 06-29-2024 End: 06-29-2024 Emergency department patient visit JASWINDER Dougherty NATHEN [facility] Start: 06-29-2024 [facility] Start: 06-29-2024 Non-patient / Non-visit Dr. Pat Daley MD -[facility] Start: 06-28-2024 End: 06-28-2024 ambulatory [facility] PA-C Work Phone: [facility] Work Phone: Start: 06-28-2024 End: 06-28-[address] Silviano Daley MD [facility] Work Phone: Start: 06-27-2024 End: 06-28-2024 [facility] Work Phone: -Emergency Department Work Phone: Start: 06-27-2024 End: 06-27-2024 Patient encounter procedure Christy Whitten CNM -[facility] Work Phone: Start: 06-27-2024 End: 06-27-2024 ambulatory [facility] PA Facility:[facility] Start: 06-19-2024 End: 06-19-[address] Peggy Flynn DO -[facility] Work Phone: Start: 06-19-2024 End: 06-19-2024 ambulatory [facility] PA Facility:[facility] Start: 06-16-2024 End: 06-17-2024 Emergency department patient visit [facility] PA-C Work Phone: -Emergency Department Work Phone: Start: 06-13-2024 End: 06-13-2024 ambulatory [facility] Start: 05-29-2024 End: 05-29-[address] Peggy Flynn DO -[facility] Work Phone: Start: 05-29-2024 End: 05-29-2024 ambulatory [facility] PA-C Work Phone: [facility] Work Phone: Start: 05-29-2024 End: 05-29-2024 ambulatory [facility] Facility:[facility] Start: 05-26-2024 End: 05-26-2024 Telephone encounter Andreea Webster RD [facility] Weight Management - [place] Start: 05-25-2024 End: 05-25-2024 ambulatory [facility] PA-C Work Phone: [facility] Work Phone: Start: 05-25-2024 End: 05-25-[address] Peggy Flynn DO [facility] Work Phone: Start: 05-25-2024 End: 05-25-2024 ambulatory Xenia Hermiston PA Facility:[facility] Start: 05-12-2024 End: 05-12-2024 Telephone encounter Andreea Webster RD [facility] Weight Management [place] Comment on above: Abnormal Lab (Vitami n D, Iron, B12) Start: 05-11-2024 End: 05-11-2024 ambulatory [facility] Start: 05-11-2024 End: 05-11-2024 Office outpatient visit 25 minutes Memo Campbell MD Work Phone: [facility] [employer] [place] Comment on above: Intestinal malabsorp tion, unspecified type (Primary Dx); Deficiency of multiple nutrient elements; History of gastric bypass; MOE on CPAP; Low zinc level; Low vitamin D level Start: 05-11-2024 End: 05-11-2024 ambulatory [facility] Start: 05-09-2024 End: 05-09-2024 [facility] Work Phone: Start: 05-09-2024 End: 05-09-[address] Peggy Flynn DO -Ultrasound, [facility] Work Phone: Start: 05-09-2024 End: 05-09-2024 ambulatory [employer] PA Facility:[facility] Start: 05-05-2024 End: 05-05-2024 ambulatory [facility] PA-C Work Phone: [facility] Work Phone: Start: 05-05-2024 End: 05-05-[address] Peggy Flynn DO -Laboratory Work Phone: Start: 05-05-2024 End: 05-05-2024 ambulatory [employer] PA Facility:[facility] Start: 05-02-2024 End: 05-02-2024 ambulatory [facility] PA-C Work Phone: [facility] Work Phone: Start: 05-02-2024 End: 05-02-[address] Peggy Flynn DO -Laboratory Work Phone: Start: 05-01-2024 End: 05-02-2024 ambulatory Xenia [employer] PA-C Work Phone: [facility] Work Phone: Start: 05-01-2024 End: 05-01-2024 Patient encounter procedure Lidya Booker COMPETENCY EVALUATED NURSE AIDE-Manoj -Ultrasound, [facility] Work Phone: Start: 05-01-2024 End: 05-01-2024 ambulatory [facility] PA Facility:[facility] Start: 04-21-2024 End: 04-21-2024 Patient encounter procedure Laurence Mccrary PA -Laboratory Work Phone: Start: 04-21-2024 End: 04-21-2024 ambulatory [facility] PA-C Work Phone: [facility] Work Phone: Start: 04-20-2024 End: 04-21-2024 [facility] Work Phone: Start: 04-20-2024 End: 04-20-[address] Peggy Flynn DO -Laboratory Work Phone: Start: 04-20-2024 End: 04-20-2024 [facility] Start: 04-18-2024 End: 04-18-2024 [facility] Work [facility] Work Phone: Start: 04-18-2024 End: 04-18-[address] Peggy Flynn DO -Laboratory Work Phone: Start: 04-18-2024 End: 04-18-2024 [facility] Start: 04-07-2024 End: 04-07-2024 ambulatory CANDE CATALAN [facility] Start: 03-31-2024 End: 03-31-2024 ambulatory CANDE CATALAN [facility] Start: 03-24-2024 End: 03-24-20[facility] Start: 03-17-2024 End: 03-17-2024 ambulatory CANDE CATALAN [facility] Start: 03-15-2024 End: 03-15-2024 ambulatory PEGGY DO [facility] Start: 03-13-2024 End: 03-13-2024 ambulatory Xenia [facility] Facility:[facility] Start: 03-13-2024 End: 03-13-[address] Peggy Flynn DO -[facility] Work Phone: Start: 03-13-2024 End: 03-13-2024 ambulatory [facility] Facility:[facility] Start: 03-10-2024 End: 03-10-2024 Emergency department patient visit Dr. Fernando Al DO -Emergency Department Work Phone: Start: 03-09-2024 End: 03-09-[address] Peggy Flynn DO -Laboratory Work Phone: Start: 03-09-2024 End: 03-09-2024 [facility] Start: 03-03-2024 End: 03-03-[address] Peggy Flynn DO -Laboratory Work Phone: Start: 03-02-2024 End: 03-02-[address] Peggy Flynn DO -[facility] Work Phone: Start: 03-02-2024 End: 03-03-2024 ambulatory [facility] Facility:[facility] Start: 03-02-2024 End: 03-02-2024 Patient encounter procedure Laurence BRISENO -Ultrasound, [facility] Work Phone: Start: 03-02-2024 End: 03-02-2024 ambulatory [facility] PA Facility:[facility] Start: 03-01-2024 End: 03-01-[address] Silviano Daley MD -Laboratory Work Phone: Start: 03-01-2024 End: 03-01-2024 ambulatory [facility] PA Facility:[facility] Start: 02-28-2024 End: 02-28-[address] Silviano Daley MD -Laboratory Work Phone: Start: 02-28-2024 End: 02-28-2024 ambulatory [facility] PA Facility:[facility] Start: 02-20-2024 End: 02-20-2024 Emergency department patient visit [facility] Start: 02-11-2024 End: 02-11-2024 Office outpatient visit 25 minutes Chely Garcia TABLE RUNNER - OPHTHALMOLOGY SURGICAL TECHNICIAN Work Phone: [facility] Cardiology - [place] Comment on above: Paroxysmal atrial fi brillation (HCC) (Primary Dx); Primary hypertension; MOE on CPAP Start: 02-11-2024 End: 02-11-2024 ambulatory [employer] [facility] Start: 12-22-2023 End: 12-22-2023 ambulatory [facility] PA Facility:[facility] Start: 12-17-2023 End: 12-17-2023 ambulatory [facility] PA Facility:[facility] Start: 12-17-2023 End: 12-17-2023 ambulatory [facility] PA Facility:[facility] Start: 11-25-2023 ambulatory [facility] PA Facil ity:[facility] Start: 11-25-2023 End: 11-25-2023 ambulatory [facility] PA Facility:[facility] Start: 11-15-2023 End: 11-15-2023 Office outpatient visit 25 minutes [employer] PA-C Work Phone: [facility] Weight Management - [place] Comment on above: Intestinal malabsorp tion, unspecified type (Primary Dx); Deficiency of multiple nutrient elements; History of gastric bypass; Back pain, unspecified back location, unspecified back pain laterality, unspecified chronicity; Primary hypertension; MOE on CPAP; Morbid obesity with BMI of 45.0-49.9, adult (HCC); Elevated LFTs; Intertrigo Start: 11-11-2023 End: 11-11-2023 ambulatory Laurence Josephwilla Facility:[facility] Start: 11-10-2023 End: 11-11-2023 ambulatory [facility] Facility:[facility] Start: 11-09-2023 End: 11-10-2023 ambulatory Ruth Rodriguez Facility:[facility] Start: 11-08-2023 End: 11-08-2023 Telephone encounter Kimberley Frank RD Work Phone: [facility] Weight Management [place] Comment on above: Results Start: 11-05-2023 End: 11-05-2023 Telephone encounter Carmen Purdy MD Work Phone: [facility] Gastroenterology [place] Comment on above: Care Coordination Start: 10-28-2023 End: 11-01-2023 ambulatory Jolly Dodd RN [facility] Clinical [facility] Start: 10-28-2023 End: 11-01-2023 Patient encounter procedure Jolly Dodd RN [facility] Start: 10-28-2023 End: 11-02-2023 Evaluation and management of inpatient Rao Mcdonough DO Work Phone: [facility] Medical [facility] Comment on above: Transaminitis (Prima ry Dx); Hx of gastric bypass; Hyperbilirubinemia Start: 10-26-2023 End: 10-27-2023 Evaluation and management of inpatient Fernando Vallejo DO Work Phone: [facility] Clinical Decision Unit CDU Comment on above: Transaminitis (Prima ry Dx); Elevated alkaline phosphatase level; Intractable nausea; Anorexia Start: 10-25-2023 End: 10-25-2023 Emergency department patient visit [facility] Start: 10-24-2023 End: 10-24-2023 Emergency department patient visit JASWINDER SENA [facility] Start: 10-22-2023 End: 10-22-2023 ambulatory CARROLL REED [facility] Start: 10-19-2023 End: 10-19-2023 ambulatory Xenia BRISENO Facility:[facility] Start: 09-20-2023 End: 12-20-2023 Transcribe Orders Hyun Hirsch PA-C Work Phone: [facility] Nod[facility] - [place] Comment on above: Obstructive sleep ap aura (adult) (pediatric) (Primary Dx) Start: 09-13-2023 End: 09-13-2023 ambulatory Hyun Hirsch PA-C Work Phone: [facility] SLEEP [facility] Comment on above: MOE (obstructive sle ep apnea) Start: 08-23-2023 End: 08-23-2023 Office outpatient visit 15 minutes Hyun Hirsch PA-C Work Phone: [facility] Pulmonary and Sleep Medicine Comment on above: MOE (obstructive sle ep apnea) (Primary Dx); Class 3 severe obesity due to excess calories with serious comorbidity and body mass index (BMI) of 50.0 to 59.9 in adult (HCC) Start: 08-23-2023 End: 08-23-2023 Office outpatient new 45 minutes Abdoul Colorado MD Work Phone: [facility] Cardiology Comment on above: Paroxysmal atrial fi brillation (HCC) (Primary Dx) Start: 08-11-2023 End: 08-11-2023 Office outpatient visit 25 minutes Miley Moise PA-C Work Phone: [facility] [place] Comment on above: Intestinal malabsorp tion, unspecified type (Primary Dx); Deficiency of multiple nutrient elements; MOE on CPAP; Primary hypertension; Morbid obesity with BMI of 50.0-59.9, adult (HCC); History of Sandra-en-Y gastric bypass; Lightheadedness Start: 07-05-2023 End: 07-05-2023 Office outpatient visit 25 minutes Matteo Abreu MD Work Phone: [facility] Cardiology Comment on above: Paroxysmal atrial fi brillation (HCC) (Primary Dx); Atrial fibrillation with RVR (HCC); Orthostatic hypotension Start: 06-17-2023 End: 06-17-2023 Postop follow up visit related to original px Memo Campbell MD Work Phone: [facility] [place] Comment on above: Encounter for postop erative care (Primary Dx); MOE on CPAP; Primary hypertension; Prediabetes; Deficiency of multiple nutrient elements; Intestinal malabsorption, unspecified type; Morbid obesity with BMI of 50.0-59.9, adult (HCC); Acute pancreatitis, unspecified complication status, unspecified pancreatitis type Start: 06-03-2023 End: 06-11-2023 Emergency department patient visit Artemio Colorado MD Work Phone: [facility] Surgical Progressive Care Unit PCU H6 Comment on above: Acute pancreatitis, unspecified complication status, unspecified pancreatitis type (Primary Dx); Nausea and vomiting, unspecified vomiting type; Severe malnutrition (CMS/HCC) (HCC); On total parenteral nutrition; Paroxysmal atrial fibrillation (HCC) Start: 06-03-2023 End: 06-03-2023 Postop follow up visit related to original px Miley BRISENO Work Phone: [employer] [facility] [place] Comment on above: Dehydration (Primary Dx) Start: 05-27-2023 End: 05-27-2023 Postop follow up visit related to original px Memo Campbell MD Work Phone: [facility] [place] Comment on above: Encounter for postop erative care (Primary Dx); Deficiency of multiple nutrient elements; Intestinal malabsorption, unspecified type; Morbid obesity with BMI of 60.0-69.9, adult (HCC) Start: 05-20-2023 Telephone encounter Miley Chu Work Phone: [employer] [facility] [place] Comment on above: Appointment (1 week) Start: 05-19-2023 End: 05-21-2023 Emergency department patient visit Shauna Hamilton DO Work Phone: [facility] Medical Surgical Unit MSU H5 Comment on above: Hemoperitoneum (Prim jo Dx); Leg swelling; At high risk for venous thromboembolism (VTE); Morbid obesity with BMI of 60.0-69.9, adult (HCC) Start: 05-18-2023 ambulatory Balwinder Ho ma Clinical Communication Start: 05-18-2023 Patient encounter procedure Balwinder Lam RN [facility] Start: 05-12-2023 ambulatory Marge Arrington Cl inical Communication Start: 05-12-2023 Patient encounter procedure Marge Flowers RN [facility] Clinical Communication Start: 05-10-2023 End: 05-11-2023 Evaluation and management of inpatient Memo Campbell MD Work Phone: [facility] Surgical Progressive Care Unit PCU H6 Comment on above: Morbid obesity with BMI of 60.0-69.9, adult (HCC) (Primary Dx); Morbid (severe) obesity due to excess calories (HCC) Start: 05-04-2023 Telephone encounter Rosalva irene TABLE RUNNER - OPHTHALMOLOGY SURGICAL TECHNICIAN Work Phone: [facility] Anesthesia Start: 04-09-2023 ambulatory Balwinder Fajardo NP Work Phone: [facility] [place] Comment on above: Morbid obesity with BMI of 60.0-69.9, adult (HCC) (Primary Dx) Start: 04-08-2023 End: 04-08-2023 Office outpatient visit 25 minutes Memo Campbell MD Work Phone: [facility] [place] Comment on above: Morbid obesity with BMI of 60.0-69.9, adult (HCC) (Primary Dx); MOE on CPAP; Prediabetes; Mixed hyperlipidemia; Back pain, unspecified back location, unspecified back pain laterality, unspecified chronicity; Hepatic steatosis Start: 03-29-2023 Telephone encounter Memo harvey MD Work Phone: [facility] [place] Comment on above: Anticoagulation (Marv enox) Start: 03-13-2023 ambulatory Balwinder Ho ma Clinical Communication Start: 03-13-2023 Patient encounter procedure Balwinder Lam RN [facility] Start: 03-11-2023 Telephone encounter Matteo ferreira MD Work Phone: [facility] Clinical Communication Comment on above: OTHER (PT BELIEVES S HE IS IN AFIB AGAIN) Start: 02-24-2023 Telephone encounter Kimberley Hutchinson jj PIERSON Work Phone: [facility] Comment on above: Abnormal Lab (Low: V itamin D; Low end NL Vitamin B12 and Ferritin; Elevated Total Protein) Start: 02-05-2023 End: 02-05-2023 Office outpatient visit 25 minutes Mary Tirado MD Work Phone: [facility] Comment on above: Prediabetes (Primary Dx); Low back pain, unspecified back pain laterality, unspecified chronicity, unspecified whether sciatica present; BMI 60.0-69.9, adult (HCC); Morbid obesity due to excess calories (HCC) Start: 01-25-2023 End: 01-25-2023 Office outpatient new 30 minutes Hyun CAOSTACO Everywhere Work Phone: [facility] [employer] [facility] Pulmonary and Sleep Medicine Comment on above: Pre-operative cleara nce (Primary Dx); MOE (obstructive sleep apnea); Morbid obesity with BMI of 60.0-69.9, adult (HCC) Start: 01-25-2023 End: 01-25-2023 Preoperative state [employer] Work Phone: [facility] [employer] Work Phone: Start: 01-20-2023 Telephone encounter Matteo ferreira MD Work Phone: [facility] Cardiology Start: 01-18-2023 End: 01-18-2023 Office outpatient visit 25 minutes Mary Tirado MD Work Phone: [facility] Comment on above: Prediabetes (Primary Dx); Low back pain, unspecified back pain laterality, unspecified chronicity, unspecified whether sciatica present; BMI 60.0-69.9, adult (HCC); Morbid obesity due to excess calories (HCC) Start: 01-12-2023 End: 01-12-2023 Subsequent hospital visit by physician Matteo Abreu MD Work Phone: [facility] Non-Invasive Cardiology Comment on above: Paroxysmal atrial fi brillation (HCC) Start: 01-12-2023 End: 01-12-2023 Subsequent hospital visit by physician Memo Campbell MD Work Phone: [facility] Comment on above: Functional dyspepsia Start: 01-08-2023 End: 01-08-2023 Office outpatient visit 25 minutes Delphine Sanchez MD Work Phone: [facility] Cardiology Comment on above: Paroxysmal atrial fi brillation (HCC) (Primary Dx); MOE on CPAP; Prediabetes; Mixed hyperlipidemia Start: 12-24-2022 ambulatory Miley BRISENO Work Phone: [facility] [place] Start: 12-21-2022 Telephone encounter Matteo ferreira MD Work Phone: [facility] Cardiology Comment on above: Palpitations Start: 12-15-2022 Telephone encounter Kimberley gardner RD Work Phone: [facility] Comment on above: Abnormal Lab (Low: i merari, Vitamin D; Low normal: Vitamin B12 & Ferritin; Elevated: Total Protein ) Start: 12-14-2022 End: 12-14-2022 Office outpatient visit 25 minutes Mary Tirado MD Work Phone: [facility] Comment on above: Prediabetes (Primary Dx); Low back pain, unspecified back pain laterality, unspecified chronicity, unspecified whether sciatica present; BMI 60.0-69.9, adult (HCC); Morbid obesity due to excess calories (HCC) Start: 11-02-2022 End: 11-02-2022 Office outpatient new 45 minutes Mary Tirado MD Work Phone: [facility] Comment on above: Prediabetes (Primary Dx); Low back pain, unspecified back pain laterality, unspecified chronicity, unspecified whether sciatica present; BMI 60.0-69.9, adult (HCC); Morbid obesity due to excess calories (HCC) Start: 11-02-2022 End: 11-02-2022 Clinical Support Memo Campbell MD Work Phone: [facility] Comment on above: Morbid obesity with BMI of 60.0-69.9, adult (HCC) (Primary Dx) Start: 10-16-2022 End: 10-16-2022 ambulatory PA-C Xenia Hermiston PA Work Phone: [facility] Work Phone: Start: 10-16-2022 End: 10-16-2022 Patient encounter procedure PA-C Xenia Hermiston PA Work Phone: [facility]-Sleep Lab Work Phone: Start: 09-24-2022 End: 09-24-2022 Patient encounter procedure PA-C Xenia Hermiston PA Work Phone: [facility] [place] Work Phone: Start: 09-10-2022 Patient encounter status Miley Busbymitzy PA Work Phone: [facility] [employer] Start: 09-10-2022 Preoperative state Miley Busbyanastasiia corado PA Work Phone: [facility] [employer] Start: 09-10-2022 Telephone encounter Miley Ng pke PA Work Phone: [facility] [place] Comment on above: Financial File (Camilla ncial File 2022); Surgery Scheduling (Initial Scheduling - Orders Pended ) Start: 09-10-2022 End: 09-10-2022 Office outpatient new 45 minutes Memo Campbell MD Work Phone: [facility] [place] Comment on above: Chronic midline low back pain without sciatica (Primary Dx); Prediabetes; Morbid obesity with BMI of 60.0-69.9, adult (HCC) Start: 09-03-2022 End: 09-03-2022 ambulatory PA-C Xenia Hermiston PA Work Phone: [facility] Work Phone: Start: 09-03-2022 End: 09-03-2022 Patient encounter procedure PA-C Xenia Hermiston PA Work Phone: [facility]-Laboratory, [facility] Start: 09-03-2022 End: 09-03-2022 Patient encounter procedure PA-C Xenia Hermiston PA Work Phone: [facility] Work Phone: Start: 09-01-2022 End: 09-21-2022 ambulatory PA-C Xenia Hills PA Work Phone: [facility] Work Phone: Start: 09-01-2022 End: 09-21-2022 Discharged Recurring PA-C Xenia Hills [facility] Start: 09-01-2022 Registered Recurring PA-C Valarie josephinechristiane Lane PA [facility] Start: 07-27-2022 End: 08-21-2022 ambulatory PA-C Xeniadio Lane PA Work Phone: [facility] Work Phone: Start: 07-27-2022 End: 08-21-2022 Discharged Recurring PA-C Xenia Lane [facility] Start: 07-01-2022 End: 07-22-2022 ambulatory PA-C Xenia Hermiston PA Work Phone: [facility] Work Phone: Start: 07-01-2022 End: 07-22-2022 Discharged Recurring PA-C Xeniadio Lane [facility] Start: 06-29-2022 End: 06-29-2022 Patient encounter procedure PA-C Xenia Hills PA Work Phone: [facility] Start: 06-18-2022 End: 06-18-2022 Patient encounter procedure PA-C Xenia Hermiston PA Work Phone: [facility] Start: 06-11-2022 Non-patient / Non-visit PA-C Maggi Lane PA Work Phone: [facility] Start: 06-11-2022 End: 06-11-2022 Admission to same day surgery center PA-C Xenia Lane PA Work Phone: [facility]-Endoscopy Start: 06-11-2022 End: 06-11-2022 ambulatory PA-C Xenia Lane PA Work Phone: [facility] Work Phone: Start: 06-03-2022 End: 06-21-2022 Discharged Recurring PA-C Xenia Lane PA Work Phone: [facility]-N[facility]ritional Services Start: 06-03-2022 Registered Recurring PA-C Valarie Lane PA Work Phone: [facility] Start: 05-20-2022 End: 05-22-2022 ambulatory PA-C Xenia Lane PA Work Phone: [facility] Work Phone: Start: 05-20-2022 End: 05-22-2022 Discharged Recurring PA-C Xenia Lane PA Work Phone: [facility]-Nutritional Services Start: 05-08-2022 End: 05-08-2022 Patient encounter procedure PA-C Xenia Lane PA Work Phone: [facility] Start: 05-07-2022 End: 05-07-2022 ambulatory PA-C Xenia Lane PA Work Phone: [facility] Work Phone: Start: 05-07-2022 End: 05-07-2022 Patient encounter procedure PA-C Xenia Lane PA Work Phone: [facility]-Laboratory, Specimen Start: 05-04-2022 End: 05-04-2022 ambulatory PA-C Xenia Lane PA Work Phone: [facility] Work Phone: Start: 05-04-2022 End: 05-04-2022 Patient encounter procedure PA-C Xenia Hermiston PA Work Phone: [facility]-Cat Scan, [facility] Start: 04-29-2022 End: 04-29-2022 ambulatory PA-C Xenia Hermiston PA Work Phone: [facility] Work Phone: Start: 04-29-2022 End: 04-29-2022 Patient encounter procedure PA-C Xenia Hermiston PA Work Phone: [facility] Start: 04-13-2022 End: 04-13-2022 Patient encounter procedure PA-C Xenia Hermiston PA Work Phone: [facility] Start: 04-13-2022 End: 04-13-2022 ambulatory PA-C Xenia Hermiston PA Work Phone: [facility] Work Phone: Start: 04-13-2022 End: 04-13-2022 Patient encounter procedure PA-C Xenia Hermiston PA Work Phone: [facility], [facility] Start: 04-08-2022 End: 04-08-2022 ambulatory PA-C Xenia Hermiston PA Work Phone: [facility] Work Phone: Start: 04-08-2022 End: 04-08-2022 Patient encounter procedure PA-C Xenia Hermiston PA Work Phone: [facility]-Laboratory Start: 04-06-2022 End: 04-06-2022 ambulatory PA-C Xenia Hermiston PA Work Phone: [facility] Work Phone: Start: 04-06-2022 End: 04-06-2022 Patient encounter procedure PA-C Xenia Hermiston PA [facility] Start: 03-11-2022 End: 03-11-2022 ambulatory PA-C [employer] PA Work Phone: [facility] Work Phone: Start: 03-11-2022 End: 03-11-2022 Patient encounter procedure PA-C [employer] [facility] Start: 03-03-2022 End: 03-03-2022 ambulatory PA-C [employer] PA Work Phone: [facility] Work Phone: Start: 03-03-2022 End: 03-03-2022 Patient encounter procedure [facility] Start: 02-24-2022 End: 02-24-2022 ambulatory PA-C [employer] Work Phone: [facility] Work Phone: Start: 02-24-2022 End: 02-24-2022 Patient encounter procedure [facility] Start: 02-19-2022 End: 02-19-[address] [facility] Work Phone: Start: 02-19-2022 End: 02-19-2022 Patient encounter procedure [facility] Procedures Date Procedure Procedure Detail Performing Clinician Start: 08-01-2024 Dilation and curetta ge of uterus [employer] PA-C Work Phone: Start: 07-29-2024 Transvaginal echography [employer] PA-C Work Phone: Start: 07-19-2024 History of gastroint estinal tract bypass History of Sandra-en-Y gastric bypass Vidya Ott DO Work Phone: Start: 06-28-2024 Transvaginal obstetr ic ultrasonography [employer] PA-C Work Phone: Start: 06-27-2024 Estimated creatinine clearance [employer] PA-C Work Phone: Start: 06-16-2024 Urnls dip stick/tabl et reagent auto microscopy [facility] Work Phone: Start: 05-29-2024 Urine culture [facility] Work Phone: Start: 05-29-2024 Hepatitis C antibody measurement [facility] Work Phone: Comment on above: Reactive: Presumptiv e evidence of antibodies to HCV. Follow CDC recommendations for supplemental testing.Non-Reactive: Antibodies to HCV were not detected; does not exclude the possibility of exposure to HCVReactive Results are presumptive evidence of antibodies to HCV. Follow CDC recommendations for supplemental testing.Order confirmation testing: HCV Quant by PCR testing - HCVPCR #[id number] Non Reactive: < 0.8 Equivocal: >/= 0.8 to < 1.0 Reactive: >/= 1.0The [facility] requires that a reactive/equivocal HCV antibody result be sent out for confirmation. HCV Quant by PCR testing. Start: 05-29-2024 Rubella IgG measurement [facility] Work Phone: Comment on above: Antibody Result: Int erpretationNon-Reactive: Non- ImmuneReactive: ImmuneThe following results were obtained with the [employer] Rubella IgG assay. Results from assays of other manufacturers cannot be used interchangeably. Start: 05-29-2024 Serologic test for syphilis [facility] Work Phone: Start: 05-25-2024 Transvaginal obstetr ic ultrasonography [facility] Work Phone: Start: 05-11-2024 Lipid 1996 panel - S cj or Plasma Memo Campbell MD Work Phone: Start: 05-09-2024 Transvaginal obstetr ic ultrasonography [facility] Work Phone: Start: 05-01-2024 Transvaginal obstetr ic ultrasonography [facility] Work Phone: Start: 03-10-2024 Urnls dip stick/tabl et reagent auto microscopy [facility] Work Phone: Start: 03-10-2024 Estimated creatinine clearance [employer] Work Phone: Start: 03-10-2024 Measurement of renal function [employer] Work Phone: Comment on above: GFR Calc Start: 03-03-2024 Laboratory data interpretation [employer] Work Phone: Comment on above: No lupus anticoagula nt was detected. Start: 03-03-2024 Lupus anticoagulant assay, platelet neutralization method [facility] Work Phone: Start: 03-03-2024 Lupus anticoagulant screening test [employer] Work Phone: Start: 03-03-2024 Prothrombin time [employer] Work Phone: Start: 03-03-2024 Serum IgM anticardio lipin measurement [employer] Work Phone: Comment on above: Negative: <13 Indete rminate: 13 - 20 Low-Med Positive: >20 - 80 High Positive: >80Performed at: [facility] [id number] Director: Ayo Burns MD, Phone: [phone] at: [facility] Lab[address] [id number] Director: Xavier Salas PhD, Phone: [phone] Start: 03-02-2024 Ultrasonography of abdomen [employer] Work Phone: Start: 02-20-2024 Urinalysis CANDE SM ITH Comment on above: Result Comment: URIN ALYSIS Performed By: [id number] #### [facility],[address] [place] [id number] Start: 02-11-2024 Ecg routine ecg w/le ast 12 lds trcg only w/o i&r Meet Tania Colorado MD Work Phone: Start: 02-11-2024 Lipid 1996 panel - S cj or Plasma Chely Arroyoonough TABLE RUNNER - OPHTHALMOLOGY SURGICAL TECHNICIAN Work Phone: Start: 11-02-2023 Comprehensive metabo lic panel Manuel Villarreal MD Work Phone: Start: 11-02-2023 Manual differential performed [Presence] in Blood Manuel Villarreal MD Work Phone: Start: 11-01-2023 Dup-scan artl brandan abdl/pel/scrot&/rpr orgn lmt Conor Ragland MD Work Phone: Start: 11-01-2023 Antibody conner-bar r eb virus early antigen ea Ángela Gomez TABLE [employer]NER - OPHTHALMOLOGY SURGICAL TECHNICIAN Work Phone: Start: 11-01-2023 Comprehensive metabo lic panel Manuel Villarreal MD Work Phone: Start: 11-01-2023 Manual differential performed [Presence] in Blood Manuel Villarreal MD Work Phone: Start: 10-31-2023 Comprehensive metabo lic panel Manuel Villarreal MD Work Phone: Start: 10-31-2023 Manual differential performed [Presence] in Blood Manuel Villarreal MD Work Phone: Start: 10-30-2023 Antibody cytomegalov irus cmv Ángela Castano Mackenzieanthony TABLE RUNNER - OPHTHALMOLOGY SURGICAL TECHNICIAN Work Phone: Start: 10-30-2023 Assay of gammaglobul in iga igd igg igm each Ángela Gomez TABLE [employer]NER - OPHTHALMOLOGY SURGICAL TECHNICIAN Work Phone: Start: 10-30-2023 ANTIMITOCHONDRIAL ANTIBODY Gunjan Avilez PA-C Work Phone: Start: 10-30-2023 Comprehensive metabo lic panel Manuel Villarreal MD Work Phone: Start: 10-30-2023 Hepatitis b core ant ibody hbcab total Gunjan Avilez PA-C Work Phone: Start: 10-30-2023 Manual differential performed [Presence] in Blood Manuel Villarreal MD Work Phone: Start: 10-29-2023 Mri abdomen w/o cont rast material Hyacinth Villavicenciodeonte TABLE [employer]NER - OPHTHALMOLOGY SURGICAL TECHNICIAN Work Phone: Start: 10-29-2023 Comprehensive metabo lic panel Manuel Villarreal MD Work Phone: Start: 10-29-2023 Manual differential performed [Presence] in Blood Manuel Villarreal MD Work Phone: Start: 10-28-2023 Comprehensive metabo lic panel Rao Mcdonough DO Work Phone: Start: 10-28-2023 Manual differential performed [Presence] in Blood Rao Tailda DO Work Phone: Start: 10-27-2023 Comprehensive metabo lic panel Joseluis Gentile MD Work Phone: Start: 10-27-2023 Manual differential performed [Presence] in Blood Joseluis Gentile MD Work Phone: Start: 10-27-2023 Drug test def 1-7 classes Fernando A Gombash DO Work Phone: Start: 10-27-2023 Urinalysis complete panel - Urine Henny Lombardi PA-C Work Phone: Start: 10-27-2023 Urine test visual color cmprsn meths Henny Lombardi PA-C Work Phone: Start: 10-27-2023 Urnls dip stick/tabl et reagent auto microscopy Henny Hilarioas PA-C Work Phone: Start: 10-26-2023 End: 10-27-2023 Heterophile antibodies screen Henny Lombardi PA-C Work Phone: Start: 10-26-2023 End: 10-27-2023 Bacteria identified in Blood by Culture Henny Lombardi PA-C Work Phone: Start: 10-26-2023 Basic metabolic pane l calcium total Henny Lombardi PA-C Work Phone: Start: 10-26-2023 Manual differential performed [Presence] in Blood Henny Barrett Lombardi PA-C Work Phone: Start: 10-26-2023 Radiologic exam ches t single view Henny Hyde Maria C HENDRIX Work Phone: Start: 10-24-2023 Urinalysis CANDE SENDY GROSS Comment on above: Result Comment: URIN ALYSIS Performed By: [id number] #### [facility],[address] [place] [address] Start: 08-23-2023 Ecg routine ecg w/le ast 12 lds w/i&r Meet Tania Colorado MD Work Phone: Start: 06-11-2023 Basic metabolic pane l calcium total Suze Cuba MD Work Phone: Start: 06-10-2023 Potassium serum plasma/whole blood Jeannine Worthy MD Work Phone: Start: 06-10-2023 Basic metabolic pane l calcium total Suze Cuba MD Work Phone: Start: 06-10-2023 Calcium ionized Connorendol yuzair Cuba MD Work Phone: Start: 06-10-2023 Complete blood count with white cell differential, automated Christy Lopez MD Work Phone: Start: 06-09-2023 Basic metabolic pane l calcium total Jeannine Worthy MD Work Phone: Start: 06-09-2023 Basic metabolic pane l calcium total Suze Cuba MD Work Phone: Start: 06-08-2023 Glucose quantitative blood xcpt reagent strip [employer] Work Phone: Start: 06-08-2023 Us abdominal real ti me w/image documentation Memo Campbell MD Work Phone: Start: 06-08-2023 Glucose quantitative blood xcpt reagent strip [employer] Work Phone: Start: 06-08-2023 Basic metabolic pane l calcium total Suze Cuba MD Work Phone: Start: 06-08-2023 Lipid panel Mai Ly MD Work Phone: Start: 06-08-2023 Lipid 1996 panel - S cj or Plasma Artemio Colorado MD Work Phone: Start: 06-08-2023 Glucose quantitative blood xcpt reagent strip [employer] Work Phone: Start: 06-07-2023 Glucose quantitative blood xcpt reagent strip M360LOHAS outdoors DO Work Phone: Start: 06-07-2023 Basic metabolic pane [...] 06-07-2023 Glucose quantitative blood xcpt reagent strip [employer] Work Phone: Start: 06-07-2023 End: 06-07-2023 Comprehensive [...] panel Artemio Colorado MD Work Phone: Start: 05-21-2023 Basic metabolic pane l calcium [...] dip stick/tabl et reagent auto microscopy Shauna Hamilton DO Work Phone: Start: 05-19-2023 Comprehensive metabo lic panel Shauna Hamilton DO Work Phone: Start: 05-19-2023 Ecg [...] Start: 01-12-2023 TTE w or wo fol wcon,Doppler Matteo Abreu MD Work Phone: Start: 01-08-2023 Ecg routine ecg w/le ast 12 lds trcg only w/o i&r Monica Landry MD Work Phone: Start: 12-14-2022 Lipid 1996 panel - S cj or Plasma Mary Tirado MD Work Phone: Start: 06-11-2022 Colonoscopy PA-C Kelley BRISENO Work Phone: Start: 05-07-2022 Clostridium difficil e detection PA-Manoj Cha [facility] Work Phone: Start: 05-07-2022 Lactoferrin measurement PA-C [facility] Work Phone: Start: 05-07-2022 Nucleic acid [facility] Work Phone: Start: 05-04-2022 Computed tomography of abdomen and pelvis with contrast PA-C [facility] Work Phone: Start: 04-13-2022 Transvaginal obstetr ic ultrasonography PA-C [employer] [place] PA Work Phone: Clostridium difficil e detection [facility]j [facility] Work Phone: Enteric Bacteriology PA-Manoj [facility] Work Phone: History of gastroint estinal tract bypass History of Sandra-en-Y gastric bypass Miley Moise [facility] Work Phone: History of gastroint estinal tract bypass History of Sandra-en-Y gastric bypass Dr. Peggy Flynn DO Comment on above: NO GLUCOLA. will luise d 2 weeks glucose testing at 26-28 [...] for Adults (1 - 1-dose 75+ series) [facility] Start: 2055 RSV Immunization aged 60 or older (1 - 1-dose 60+ series) RSV Immunization aged 60 or older (1 - 1-dose 60+ series) [facility] Start: 09-21-2045 Zoster Vaccines (1 of 2) Zoster Vaccines (1 of 2) [facility] Start: 05-11-2029 Lipid panel Lipid Panel [facility] Start: 02-10-2029 Lipid panel Lipid Panel [facility] Start: 06-07-2028 Lipid panel Lipid Panel [facility] Start: 12-15-2027 Lipid panel Lipid Panel [facility] Start: 05-07-2025 End: 05-07-2025 Patient encounter procedure 05/07/2025 2:00 PM EDT Office Visit [facility] - [place] [address] [place] [id number] Mary Tirado MD [address] [place] [address] [facility] Start: 11-13-2024 End: 11-13-2025 25-hydroxyvitamin D3 [Mass/volume] in Serum or Plasma Vitamin D Deficiency Screening (Vit D 25) Lab Routine Deficiency of other specified B group vitamins Intestinal malabsorption, unspecified type Expected: 11/13/2024 (Approximate), Expires: 11/13/2025 [facility] Comment on above: Expected: 11/13/2024 (Approximate), Expi res: 11/13/2025 Start: 11-13-2024 End: 11-13-2025 CBC W Auto Differential panel - Blood CBC auto differential Lab Routine Deficiency of other specified B group vitamins Intestinal malabsorption, unspecified type Expected: 11/13/2024 (Approximate), Expires: 11/13/2025 [facility] Work Phone: Comment on above: Expected: 11/13/2024 (Approximate), Expi res: 11/13/2025 Start: 11-13-2024 End: 11-13-2025 Cobalamin (Vitamin B12) [Mass/volume] in Serum or Plasma Vitamin B12 Lab Routine Deficiency of other specified B group vitamins Intestinal malabsorption, unspecified type Expected: 11/13/2024 (Approximate), Expires: 11/13/2025 [facility] [employer] Comment on above: Expected: 11/13/2024 (Approximate), Expi res: 11/13/2025 Start: 11-13-2024 End: 11-13-2025 Comprehensive metabolic 1998 panel - Serum or Plasma Comprehensive metabolic panel Lab Routine Deficiency of other specified B group vitamins Intestinal malabsorption, unspecified type Expected: 11/13/2024 (Approximate), Expires: 11/13/2025 [facility] Comment on above: Expected: 11/13/2024 (Approximate), Expi res: 11/13/2025 Start: 11-13-2024 End: 11-13-2025 Ferritin [Mass/volume] in Serum or Plasma Ferritin Lab Routine Deficiency of other specified B group vitamins Intestinal malabsorption, unspecified type Expected: 11/13/2024 (Approximate), Expires: 11/13/2025 [facility] Comment on above: Expected: 11/13/2024 (Approximate), Expi res: 11/13/2025 Start: 11-13-2024 End: 11-13-2025 Folate [Mass/volume] in Serum or Plasma Folate Lab Routine Deficiency of other specified B group vitamins Intestinal malabsorption, unspecified type Expected: 11/13/2024 (Approximate), Expires: 11/13/2025 [facility] Comment on above: Expected: 11/13/2024 (Approximate), Expi res: 11/13/2025 Start: 11-13-2024 End: 11-13-2025 Hemoglobin A1c measurement Hemoglobin A1c Lab Routine Prediabetes Expected: 11/13/2024 (Approximate), Expires: 11/13/2025 [facility] Comment on above: Expected: 11/13/2024 (Approximate), Expi res: 11/13/2025 Start: 11-13-2024 End: 11-13-2025 Iron and Iron binding capacity panel - Serum or Plasma Iron Lab Routine Deficiency of other specified B group vitamins Intestinal malabsorption, unspecified type Expected: 11/13/2024 (Approximate), Expires: 11/13/2025 [facility] Comment on above: Expected: 11/13/2024 (Approximate), Expi res: 11/13/2025 Start: 11-13-2024 End: 11-13-2025 Lipid 1996 panel - Serum or Plasma Lipid panel Lab Routine Deficiency of other specified B group vitamins Intestinal malabsorption, unspecified type Expected: 11/13/2024 (Approximate), Expires: 11/13/2025 [facility] Comment on above: Expected: 11/13/2024 (Approximate), Expi res: 11/13/2025 Start: 11-13-2024 End: 11-13-2025 Magnesium [Mass/volume] in Serum or Plasma Magnesium Lab Routine Deficiency of other specified B group vitamins Intestinal malabsorption, unspecified type Expected: 11/13/2024 (Approximate), Expires: 11/13/2025 [facility] Comment on above: Expected: 11/13/2024 (Approximate), Expi res: 11/13/2025 Start: 11-13-2024 End: 11-13-2025 Vitamin B1, whole blood ([facility]) Vitamin B1, whole blood ([facility]) Lab Routine Deficiency of other specified B group vitamins Intestinal malabsorption, unspecified type Expected: 11/13/2024 (Approximate), Expires: 11/13/2025 [facility] Comment on above: Expected: 11/13/2024 (Approximate), Expi res: 11/13/2025 Start: 11-13-2024 End: 11-13-2025 Zinc Zinc Lab Routine Deficiency of other specified B group vitamins Intestinal malabsorption, unspecified type Expected: 11/13/2024 (Approximate), Expires: 11/13/2025 [facility] Comment on above: Expected: 11/13/2024 (Approximate), Expi res: 11/13/2025 Start: 11-13-2024 End: 11-13-2024 Patient encounter procedure 11/13/2024 1:30 PM EDT Office Visit [facility] - [place] [address] [facility] [address] [place] [id number] Mary Tirado MD [address] [place] [address] [facility] Start: 11-08-2024 End: 05-08-2025 Vitamin B1, whole blood ([facility]) Vitamin B1, whole blood ([facility]) Lab Routine Deficiency of multiple nutrient elements Intestinal malabsorption, unspecified type History of gastric bypass Expected: 11/08/2024 (Approximate), Expires: 05/08/2025 [facility] Work Phone: Comment on above: Expected: 11/08/2024 (Approximate), Expi res: 05/08/2025 Start: 11-08-2024 End: 05-08-2025 Zinc (Sendout) Zinc (Sendout) Lab Routine Deficiency of multiple nutrient elements Intestinal malabsorption, unspecified type History of gastric bypass Expected: 11/08/2024 (Approximate), Expires: 05/08/2025 [facility] Comment on above: Expected: 11/08/2024 (Approximate), Expi res: 05/08/2025 Start: 10-23-2024 COVID-19 Vaccine ( season) COVID-19 Vaccine ( season) [facility] Start: 10-23-2024 FLU (Season Ended) FLU (Season Ended) [facility] Start: 10-23-2024 Influenza vaccination [facility] Start: 08-12-2024 End: 10-12-2024 25-hydroxyvitamin D3 [Mass/volume] in Serum or Plasma Vitamin D Deficiency Screening (Vit D 25) Lab Routine Vitamin D deficiency Expected: 08/12/2024 (Approximate), Expires: 10/12/2024 [facility] Comment on above: Expected: 08/12/2024 (Approximate), Expi res: 10/12/2024 Start: 08-12-2024 End: 10-12-2024 Cobalamin (Vitamin B12) [Mass/volume] in Serum or Plasma Vitamin B12 Lab Routine B12 deficiency Expected: 08/12/2024 (Approximate), Expires: 10/12/2024 [facility] Comment on above: Expected: 08/12/2024 (Approximate), Expi res: 10/12/2024 Start: 08-12-2024 End: 10-12-2024 Iron and Iron binding capacity panel - Serum or Plasma Iron Lab Routine Iron deficiency Expected: 08/12/2024 (Approximate), Expires: 10/12/2024 [facility] Comment on above: Expected: 08/12/2024 (Approximate), Expi res: 10/12/2024 Start: 08-12-2024 End: 10-12-2024 Zinc (Sendout) Zinc (Sendout) Lab Routine Zinc deficiency Expected: 08/12/2024 (Approximate), Expires: 10/12/2024 [facility] Work Phone: Comment on above: Expected: 08/12/2024 (Approximate), Expi res: 10/12/2024 Start: 08-02-2024 End: 08-02-2024 Follow-up encounter 08/02/2024 1:30 PM EDT Clinical Support [facility] [address] [place] [address] Xenia Anthony, [place] [address] MFM follow up with [facility] Comment on above: MFM follow up with [facility] Start: 08-01-2024 Anesthesia incomplete/missed ANES INCOMPL/MISSED AB PX [facility] Start: 08-01-2024 Tx incomplete any trimester surgical TREATMENT OF MISCARRIAGE [facility] Start: 08-01-[address] [facility] Start: 08-01-2024 Ambulation without limitation [facility] Start: 08-01-2024 Medical regimen orders management [facility] Start: 08-01-[address] [facility] Start: 08-01-[address] [facility] Start: 08-01-2024 Taking patient vital signs [facility] Start: 08-01-2024 Vital signs measurements [facility] Start: 08-01-[address] [facility] Start: 07-04-2024 CBC W Auto Differential panel - Blood [facility] Start: 06-28-[address] [facility] Start: 06-28-[address] [facility] Start: 06-17-[address] [facility] Start: 05-29-2024 Bacteria identified in Urine by Culture Urine Culture [facility] Start: 05-29-[address] [facility] Start: 05-16-2024 End: 05-16-2025 25-hydroxyvitamin D3 [Mass/volume] in Serum or Plasma Vitamin D Deficiency Screening (Vit D 25) Lab Routine Iron deficiency B12 deficiency Vitamin D deficiency Zinc deficiency Deficiency of multiple nutrient elements Intestinal malabsorption, unspecified type History of gastric bypass Back pain, unspecified back location, unspecified back pain laterality, unspecified chronicity Expected: 05/16/2024, Expires: 05/16/2025 [facility] [employer] Comment on above: Expected: 05/16/2024, Expires: Start: 05-16-2024 End: 05-16-2025 CBC panel - Blood by Automated count CBC Lab Routine Iron deficiency B12 deficiency Vitamin D deficiency Zinc deficiency Deficiency of multiple nutrient elements Intestinal malabsorption, unspecified type History of gastric bypass Back pain, unspecified back location, unspecified back pain laterality, unspecified chronicity Expected: 05/16/2024, Expires: 05/16/2025 [facility] [employer] Comment on above: Expected: 05/16/2024, Expires: Start: 05-16-2024 End: 05-16-2025 Cobalamin (Vitamin B12) [Mass/volume] in Serum or Plasma Vitamin B12 Lab Routine Iron deficiency B12 deficiency Vitamin D deficiency Zinc deficiency Deficiency of multiple nutrient elements Intestinal malabsorption, unspecified type History of gastric bypass Back pain, unspecified back location, unspecified back pain laterality, unspecified chronicity Expected: 05/16/2024, Expires: 05/16/2025 [employer] Comment on above: Expected: 05/16/2024, Expires: Start: 05-16-2024 End: 05-16-2025 Comprehensive metabolic 1998 panel - Serum or Plasma Comprehensive metabolic panel Lab Routine Iron deficiency B12 deficiency Vitamin D deficiency Zinc deficiency Deficiency of multiple nutrient elements Intestinal malabsorption, unspecified type History of gastric bypass Back pain, unspecified back location, unspecified back pain laterality, unspecified chronicity Expected: 05/16/2024, Expires: 05/16/2025 [facility] [employer] Comment on above: Expected: 05/16/2024, Expires: Start: 05-16-2024 End: 05-16-2025 Ferritin [Mass/volume] in Serum or Plasma Ferritin Lab Routine Iron deficiency B12 deficiency Vitamin D deficiency Zinc deficiency Deficiency of multiple nutrient elements Intestinal malabsorption, unspecified type History of gastric bypass Back pain, unspecified back location, unspecified back pain laterality, unspecified chronicity Expected: 05/16/2024, Expires: 05/16/2025 [facility] [employer] Comment on above: Expected: 05/16/2024, Expires: Start: 05-16-2024 End: 05-16-2025 Folate [Mass/volume] in Serum or Plasma Folate Lab Routine Iron deficiency B12 deficiency Vitamin D deficiency Zinc deficiency Deficiency of multiple nutrient elements Intestinal malabsorption, unspecified type History of gastric bypass Back pain, unspecified back location, unspecified back pain laterality, unspecified chronicity Expected: 05/16/2024, Expires: 05/16/2025 [facility] [employer] Comment on above: Expected: 05/16/2024, Expires: Start: 05-16-2024 End: 05-16-2025 Iron and Iron binding capacity panel - Serum or Plasma Iron Lab Routine Iron deficiency B12 deficiency Vitamin D deficiency Zinc deficiency Deficiency of multiple nutrient elements Intestinal malabsorption, unspecified type History of gastric bypass Back pain, unspecified back location, unspecified back pain laterality, unspecified chronicity Expected: 05/16/2024, Expires: 05/16/2025 [facility] [employer] Comment on above: Expected: 05/16/2024, Expires: Start: 05-16-2024 End: 05-16-2025 Lipid 1996 panel - Serum or Plasma Lipid panel Lab Routine Iron deficiency B12 deficiency Vitamin D deficiency Zinc deficiency Deficiency of multiple nutrient elements Intestinal malabsorption, unspecified type History of gastric bypass Back pain, unspecified back location, unspecified back pain laterality, unspecified chronicity Expected: 05/16/2024, Expires: 05/16/2025 [facility] Comment on above: Expected: 05/16/2024, Expires: Start: 05-16-2024 End: 05-16-2025 Magnesium [Mass/volume] in Serum or Plasma Magnesium Lab Routine Iron deficiency B12 deficiency Vitamin D deficiency Zinc deficiency Deficiency of multiple nutrient elements Intestinal malabsorption, unspecified type History of gastric bypass Back pain, unspecified back location, unspecified back pain laterality, unspecified chronicity Expected: 05/16/2024, Expires: 05/16/2025 [facility] Comment on above: Expected: 05/16/2024, Expires: Start: 05-16-2024 End: 05-16-2025 Vitamin B1, whole blood ([facility]) Vitamin B1, whole blood ([facility]) Lab Routine Iron deficiency B12 deficiency Vitamin D deficiency Zinc deficiency Deficiency of multiple nutrient elements Intestinal malabsorption, unspecified type History of gastric bypass Back pain, unspecified back location, unspecified back pain laterality, unspecified chronicity Expected: 05/16/2024, Expires: 05/16/2025 [employer] Comment on above: Expected: 05/16/2024, Expires: Start: 05-16-2024 End: 05-16-2025 Zinc (Sendout) Zinc (Sendout) Lab Routine Iron deficiency B12 deficiency Vitamin D deficiency Zinc deficiency Deficiency of multiple nutrient elements Intestinal malabsorption, unspecified type History of gastric bypass Back pain, unspecified back location, unspecified back pain laterality, unspecified chronicity Expected: 05/16/2024, Expires: 05/16/2025 [facility] Comment on above: Expected: 05/16/2024, Expires: Start: [...] adult (HCC) Expected: 05/07/2024 (Approximate), Expires: 11/07/2024 [facility] Comment on above: Expected: 05/07/2024 (Approximate), Expi res: 11/07/2024 Start: 05-07-2024 End: 11-07-2024 CBC panel - Blood by Automated count CBC Lab Routine Deficiency of multiple nutrient elements Intestinal malabsorption, unspecified type History of gastric bypass Primary hypertension MOE on CPAP Morbid obesity with BMI of 45.0-49.9, adult (HCC) Expected: 05/07/2024 (Approximate), Expires: 11/07/2024 [facility] Comment on above: Expected: 05/07/2024 (Approximate), Expi res: 11/07/2024 Start: 05-07-2024 End: 11-07-2024 Cobalamin (Vitamin B12) [Mass/volume] in Serum or Plasma Vitamin B12 Lab Routine Deficiency of multiple nutrient elements Intestinal malabsorption, unspecified type History of gastric bypass Primary hypertension MOE on CPAP Morbid obesity with BMI of 45.0-49.9, adult (HCC) Expected: 05/07/2024 (Approximate), Expires: 11/07/2024 [facility] Comment on above: Expected: 05/07/2024 (Approximate), Expi res: 11/07/2024 Start: 05-07-2024 End: 11-07-2024 Comprehensive metabolic 1998 panel - Serum or Plasma Comprehensive metabolic panel Lab Routine Deficiency of multiple nutrient elements Intestinal malabsorption, unspecified type History of gastric bypass Primary hypertension MOE on CPAP Morbid obesity with BMI of 45.0-49.9, adult (HCC) Expected: 05/07/2024 (Approximate), Expires: 11/07/2024 [facility] Comment on above: Expected: 05/07/2024 (Approximate), Expi res: 11/07/2024 Start: 05-07-2024 End: 11-07-2024 Ferritin [Mass/volume] in Serum or Plasma Ferritin Lab Routine Deficiency of multiple nutrient elements Intestinal malabsorption, unspecified type History of gastric bypass Primary hypertension MOE on CPAP Morbid obesity with BMI of 45.0-49.9, adult (HCC) Expected: 05/07/2024 (Approximate), Expires: 11/07/2024 [facility] Comment on above: Expected: 05/07/2024 (Approximate), Expi res: 11/07/2024 Start: 05-07-2024 End: 11-07-2024 Folate [Mass/volume] in Serum or Plasma Folate Lab Routine Deficiency of multiple nutrient elements Intestinal malabsorption, unspecified type History of gastric bypass Primary hypertension MOE on CPAP Morbid obesity with BMI of 45.0-49.9, adult (HCC) Expected: 05/07/2024 (Approximate), Expires: 11/07/2024 [facility] Comment on above: Expected: 05/07/2024 (Approximate), Expi res: 11/07/2024 Start: 05-07-2024 End: 11-07-2024 Iron and Iron binding capacity panel - Serum or Plasma Iron Lab Routine Deficiency of multiple nutrient elements Intestinal malabsorption, unspecified type History of gastric bypass Primary hypertension MOE on CPAP Morbid obesity with BMI of 45.0-49.9, adult (HCC) Expected: 05/07/2024 (Approximate), Expires: 11/07/2024 [facility] Comment on above: Expected: 05/07/2024 (Approximate), Expi res: 11/07/2024 Start: 05-07-2024 End: 11-07-2024 Lipid 1996 panel - Serum or Plasma Lipid panel Lab Routine Deficiency of multiple nutrient elements Intestinal malabsorption, unspecified type History of gastric bypass Primary hypertension MOE on CPAP Morbid obesity with BMI of 45.0-49.9, adult (HCC) Expected: 05/07/2024 (Approximate), Expires: 11/07/2024 [facility] Comment on above: Expected: 05/07/2024 (Approximate), Expi res: 11/07/2024 Start: 05-07-2024 End: 11-07-2024 Magnesium [Mass/volume] in Serum or Plasma Magnesium Lab Routine Deficiency of multiple nutrient elements Intestinal malabsorption, unspecified type History of gastric bypass Primary hypertension MOE on CPAP Morbid obesity with BMI of 45.0-49.9, adult (HCC) Expected: 05/07/2024 (Approximate), Expires: 11/07/2024 [facility] Comment on above: Expected: 05/07/2024 (Approximate), Expi res: 11/07/2024 Start: 05-07-2024 End: 11-07-2024 Vitamin B1, whole blood ([facility]) Vitamin B1, whole blood ([facility]) Lab Routine Deficiency of multiple nutrient elements Intestinal malabsorption, unspecified type History of gastric bypass Primary hypertension MOE on CPAP Morbid obesity with BMI of 45.0-49.9, adult (HCC) Expected: 05/07/2024 (Approximate), Expires: 11/07/2024 [facility] Comment on above: Expected: 05/07/2024 (Approximate), Expi res: 11/07/2024 Start: 05-07-2024 End: 11-07-2024 Zinc (Sendout) Zinc (Sendout) Lab Routine Deficiency of multiple nutrient elements Intestinal malabsorption, unspecified type History of gastric bypass Primary hypertension MOE on CPAP Morbid obesity with BMI of 45.0-49.9, adult (HCC) Expected: 05/07/2024 (Approximate), Expires: 11/07/2024 [facility] Work Phone: Comment on above: Expected: 05/07/2024 (Approximate), Expi res: 11/07/2024 Start: 05-02-2024 Diabetes mellitus screening Diabetes Screening [facility] Start: 03-10-[address] [facility] Start: 02-11-2024 End: 02-11-2024 Patient encounter procedure [facility] Start: 12-27-2023 End: 11-14-2024 25-hydroxyvitamin D3 [Mass/volume] in Serum or Plasma Vitamin D Deficiency Screening (Vit D 25) Lab Routine Deficiency of multiple nutrient elements Intestinal malabsorption, unspecified type History of gastric bypass Primary hypertension MOE on CPAP Morbid obesity with BMI of 45.0-49.9, adult (HCC) Expected: 12/27/2023, Expires: 11/14/2024 [facility] Comment on above: Expected: 12/27/2023, Expires: Start: 12-27-2023 End: 11-14-2024 CBC panel - Blood by Automated count CBC Lab Routine Deficiency of multiple nutrient elements Intestinal malabsorption, unspecified type History of gastric bypass Primary hypertension MOE on CPAP Morbid obesity with BMI of 45.0-49.9, adult (HCC) Expected: 12/27/2023, Expires: 11/14/2024 [facility] Comment on above: Expected: 12/27/2023, Expires: Start: 12-27-2023 End: 11-14-2024 Cobalamin (Vitamin B12) [Mass/volume] in Serum or Plasma Vitamin B12 Lab Routine Deficiency of multiple nutrient elements Intestinal malabsorption, unspecified type History of gastric bypass Primary hypertension MOE on CPAP Morbid obesity with BMI of 45.0-49.9, adult (HCC) Expected: 12/27/2023, Expires: 11/14/2024 [facility] Comment on above: Expected: 12/27/2023, Expires: Start: 12-27-2023 End: 11-14-2024 Comprehensive metabolic 1998 panel - Serum or Plasma Comprehensive metabolic panel Lab Routine Deficiency of multiple nutrient elements Intestinal malabsorption, unspecified type History of gastric bypass Primary hypertension MOE on CPAP Morbid obesity with BMI of 45.0-49.9, adult (HCC) Expected: 12/27/2023, Expires: 11/14/2024 [facility] Comment on above: Expected: 12/27/2023, Expires: Start: 12-27-2023 End: 11-14-2024 Ferritin [Mass/volume] in Serum or Plasma Ferritin Lab Routine Deficiency of multiple nutrient elements Intestinal malabsorption, unspecified type History of gastric bypass Primary hypertension MOE on CPAP Morbid obesity with BMI of 45.0-49.9, adult ([facility]) Expected: 12/27/2023, Expires: 11/14/2024 [facility] Comment on above: Expected: 12/27/2023, Expires: Start: 12-27-2023 End: 11-14-2024 Folate [Mass/volume] in Serum or Plasma Folate Lab Routine Deficiency of multiple nutrient elements Intestinal malabsorption, unspecified type History of gastric bypass Primary hypertension MOE on CPAP Morbid obesity with BMI of 45.0-49.9, adult ([facility]) Expected: 12/27/2023, Expires: 11/14/2024 [facility] Comment on above: Expected: 12/27/2023, Expires: Start: 12-27-2023 End: 11-14-2024 Iron and Iron binding capacity panel - Serum or Plasma Iron Lab Routine Deficiency of multiple nutrient elements Intestinal malabsorption, unspecified type History of gastric bypass Primary hypertension MOE on CPAP Morbid obesity with BMI of 45.0-49.9, adult ([facility]) Expected: 12/27/2023, Expires: 11/14/2024 [facility] Comment on above: Expected: 12/27/2023, Expires: Start: 12-27-2023 End: 11-14-2024 Lipid 1996 panel - Serum or Plasma Lipid panel Lab Routine Deficiency of multiple nutrient elements Intestinal malabsorption, unspecified type History of gastric bypass Primary hypertension MOE on CPAP Morbid obesity with BMI of 45.0-49.9, adult ([facility]) Expected: 12/27/2023, Expires: 11/14/2024 [facility] Comment on above: Expected: 12/27/2023, Expires: Start: 12-27-2023 End: 11-14-2024 Magnesium [Mass/volume] in Serum or Plasma Magnesium Lab Routine Deficiency of multiple nutrient elements Intestinal malabsorption, unspecified type History of gastric bypass Primary hypertension MOE on CPAP Morbid obesity with BMI of 45.0-49.9, adult ([facility]) Expected: 12/27/2023, Expires: 11/14/2024 [facility] Comment on above: Expected: 12/27/2023, Expires: Start: 12-27-2023 End: 11-14-2024 Vitamin B1, whole blood ([facility]) Vitamin B1, whole blood ([facility]) Lab Routine Deficiency of multiple nutrient elements Intestinal malabsorption, unspecified type History of gastric bypass Primary hypertension MOE on CPAP Morbid obesity with BMI of 45.0-49.9, adult (HCC) Expected: 12/27/2023, Expires: 11/14/2024 [facility] Comment on above: Expected: 12/27/2023, Expires: Start: 12-27-2023 End: 11-14-2024 Zinc (Sendout) Zinc (Sendout) Lab Routine Deficiency of multiple nutrient elements Intestinal malabsorption, unspecified type History of gastric bypass Primary hypertension MOE on CPAP Morbid obesity with BMI of 45.0-49.9, adult (HCC) Expected: 12/27/2023, Expires: 11/14/2024 [facility] Comment on above: Expected: 12/27/2023, Expires: Start: 12-15-2023 Diabetes mellitus screening Diabetes Screening [facility] Start: 11-15-2023 End: 11-15-2023 Patient encounter procedure [facility] Start: 11-05-2023 End: 11-05-2023 Clinical Support 11/05/2023 8:00 AM EDT Clinical Support [facility] [address] [place] [address] Hyun Hirsch PA-C [address] [facility] [address] [place] [address] [facility] Start: 10-24-2023 COVID-19 () COVID-19 () [facility] Start: 10-24-2023 COVID-19 Vaccine () COVID-19 Vaccine () [facility] Start: 10-24-2023 COVID-19 Vaccine ( season) COVID-19 Vaccine () [facility] Start: 10-24-2023 Influenza vaccination [facility] Start: 10-06-2023 End: 08-05-2024 25-hydroxyvitamin D3 [Mass/volume] in Serum or Plasma Vitamin D Deficiency Screening (Vit D 25) Lab Routine Deficiency of multiple nutrient elements Intestinal malabsorption, unspecified type MOE on CPAP Primary hypertension Morbid obesity with BMI of 50.0-59.9, adult (HCC) History of Sandra-en-Y gastric bypass Expected: 10/06/2023 (Approximate), Expires: 08/05/2024 [facility] Comment on above: Expected: 10/06/2023 (Approximate), Expi res: 08/05/2024 Start: 10-06-2023 End: 08-05-2024 CBC panel - Blood by Automated count CBC Lab Routine Deficiency of multiple nutrient elements Intestinal malabsorption, unspecified type MOE on CPAP Primary hypertension Morbid obesity with BMI of 50.0-59.9, adult (HCC) History of Sandra-en-Y gastric bypass Expected: 10/06/2023 (Approximate), Expires: 08/05/2024 [facility] Comment on above: Expected: 10/06/2023 (Approximate), Expi res: 08/05/2024 Start: 10-06-2023 End: 08-05-2024 Cobalamin (Vitamin B12) [Mass/volume] in Serum or Plasma Vitamin B12 Lab Routine Deficiency of multiple nutrient elements Intestinal malabsorption, unspecified type MOE on CPAP Primary hypertension Morbid obesity with BMI of 50.0-59.9, adult (HCC) History of Sandra-en-Y gastric bypass Expected: 10/06/2023 (Approximate), Expires: 08/05/2024 [facility] Comment on above: Expected: 10/06/2023 (Approximate), Expi res: 08/05/2024 Start: 10-06-2023 End: 08-05-2024 Comprehensive metabolic 1998 panel - Serum or Plasma Comprehensive metabolic panel Lab Routine Deficiency of multiple nutrient elements Intestinal malabsorption, unspecified type MOE on CPAP Primary hypertension Morbid obesity with BMI of 50.0-59.9, adult (HCC) History of Sandra-en-Y gastric bypass Expected: 10/06/2023 (Approximate), Expires: 08/05/2024 [facility] Comment on above: Expected: 10/06/2023 (Approximate), Expi res: 08/05/2024 Start: 10-06-2023 End: 08-05-2024 Ferritin [Mass/volume] in Serum or Plasma Ferritin Lab Routine Deficiency of multiple nutrient elements Intestinal malabsorption, unspecified type MOE on CPAP Primary hypertension Morbid obesity with BMI of 50.0-59.9, adult (HCC) History of Sandra-en-Y gastric bypass Expected: 10/06/2023 (Approximate), Expires: 08/05/2024 [facility] Comment on above: Expected: 10/06/2023 (Approximate), Expi res: 08/05/2024 Start: 10-06-2023 End: 08-05-2024 Folate [Mass/volume] in Serum or Plasma Folate Lab Routine Deficiency of multiple nutrient elements Intestinal malabsorption, unspecified type MOE on CPAP Primary hypertension Morbid obesity with BMI of 50.0-59.9, adult (HCC) History of Sandra-en-Y gastric bypass Expected: 10/06/2023 (Approximate), Expires: 08/05/2024 [facility] Comment on above: Expected: 10/06/2023 (Approximate), Expi res: 08/05/2024 Start: 10-06-2023 End: 08-05-2024 Iron and Iron binding capacity panel - Serum or Plasma Iron Lab Routine Deficiency of multiple nutrient elements Intestinal malabsorption, unspecified type MOE on CPAP Primary hypertension Morbid obesity with BMI of 50.0-59.9, adult (HCC) History of Sandra-en-Y gastric bypass Expected: 10/06/2023 (Approximate), Expires: 08/05/2024 [facility] Comment on above: Expected: 10/06/2023 (Approximate), Expi res: 08/05/2024 Start: 10-06-2023 End: 08-05-2024 Lipid 1996 panel - Serum or Plasma Lipid panel Lab Routine Deficiency of multiple nutrient elements Intestinal malabsorption, unspecified type MOE on CPAP Primary hypertension Morbid obesity with BMI of 50.0-59.9, adult (HCC) History of Sandra-en-Y gastric bypass Expected: 10/06/2023 (Approximate), Expires: 08/05/2024 [employer] Comment on above: Expected: 10/06/2023 (Approximate), Expi res: 08/05/2024 Start: 10-06-2023 End: 08-05-2024 Magnesium [Mass/volume] in Serum or Plasma Magnesium Lab Routine Deficiency of multiple nutrient elements Intestinal malabsorption, unspecified type MOE on CPAP Primary hypertension Morbid obesity with BMI of 50.0-59.9, adult (HCC) History of Sandra-en-Y gastric bypass Expected: 10/06/2023 (Approximate), Expires: 08/05/2024 [employer] Comment on above: Expected: 10/06/2023 (Approximate), Expi res: 08/05/2024 Start: 10-06-2023 End: 08-05-2024 Vitamin B1, whole blood ([facility]) Vitamin B1, whole blood ([facility]) Lab Routine Deficiency of multiple nutrient elements Intestinal malabsorption, unspecified type MOE on CPAP Primary hypertension Morbid obesity with BMI of 50.0-59.9, adult (HCC) History of Sandra-en-Y gastric bypass Expected: 10/06/2023 (Approximate), Expires: 08/05/2024 [employer] Comment on above: Expected: 10/06/2023 (Approximate), Expi res: 08/05/2024 Start: 10-06-2023 End: 08-05-2024 Zinc (Sendout) Zinc (Sendout) Lab Routine Deficiency of multiple nutrient elements Intestinal malabsorption, unspecified type MOE on CPAP Primary hypertension Morbid obesity with BMI of 50.0-59.9, adult (HCC) History of Sandra-en-Y gastric bypass Expected: 10/06/2023 (Approximate), Expires: 08/05/2024 [employer] Work Phone: Comment on above: Expected: 10/06/2023 (Approximate), Expi res: 08/05/2024 Start: 09-20-2023 End: 09-19-2024 Home sleep test [facility] Routine Obstructive sleep apnea (adult) (pediatric) Expected: 09/20/2023 (Approximate), Expires: 09/19/2024 [employer] Work Phone: Comment on above: Expected: 09/20/2023 (Approximate), Expi res: 09/19/2024 Start: 09-13-2023 End: 09-13-2023 Clinical Support 09/13/2023 10:00 AM EDT Clinical Support [facility] [address] [place] [phone] Hyun Hirsch PA-C [address] [place] [address] [facility] Start: 08-23-2023 End: 08-22-2024 Home sleep test Home sleep test [facility] Routine MOE (obstructive sleep apnea) Expected: 08/23/2023 (Approximate), Expires: 08/22/2024 [facility] Work Phone: Comment on above: Expected: 08/23/2023 (Approximate), Expi res: 08/22/2024 Start: 08-23-2023 End: 08-23-2023 Patient encounter procedure 08/23/2023 11:40 AM EDT Office Visit [facility] [address] [place] [id number] Hyun Hirsch PA-C [address] [place] [address] [facility] Start: 08-23-2023 End: 08-23-2023 Patient encounter procedure 08/23/2023 8:30 AM EDT Office Visit [facility] [address] [place] [phone] Abdoul Colorado MD [address] [place], [place] [id number] [facility] Start: 08-17-2023 End: 06-16-2024 CBC [...] adult (HCC) Expected: 08/17/2023 (Approximate), Expires: 06/16/2024 [facility] Comment on above: Expected: 08/17/2023 (Approximate), Expi res: 06/16/2024 Start: 08-17-2023 End: 06-16-2024 Magnesium [Mass/volume] in Serum or Plasma Magnesium Lab Routine MOE on CPAP Primary hypertension Prediabetes Deficiency of multiple nutrient elements Intestinal malabsorption, unspecified type Morbid obesity with BMI of 50.0-59.9, adult (HCC) Expected: 08/17/2023 (Approximate), Expires: 06/16/2024 [facility] Comment on above: Expected: 08/17/2023 (Approximate), Expi res: 06/16/2024 Start: 08-17-2023 End: 06-16-2024 Zinc Zinc Lab Routine MOE on CPAP Primary hypertension Prediabetes Deficiency of multiple nutrient elements Intestinal malabsorption, unspecified type Morbid obesity with BMI of 50.0-59.9, adult (HCC) Expected: 08/17/2023 (Approximate), Expires: 06/16/2024 [facility] Work Phone: Comment on above: Expected: 08/17/2023 (Approximate), Expi res: 06/16/2024 Start: 08-11-2023 End: 08-11-2023 Patient encounter procedure 08/11/2023 12:45 PM EDT Office Visit [facility] [place] [address] [place] [address] Miley Moise PA [address] [place] [address] [facility] Start: 07-27-2023 End: 07-27-2023 Patient encounter procedure 07/27/2023 12:40 PM EDT Office Visit [facility] [address] [place] [phone] Hyun Hirsch PA-C [address] [place] [address] [facility] Start: 07-05-2023 End: 07-05-2023 Patient encounter procedure [facility] Start: 06-10-2023 End: 06-10-2023 Patient encounter procedure 06/10/2023 7:45 AM EDT Office Visit [facility] [place] [address] [place] [phone] Memo Campbell MD [address] [place] [address] [facility] Start: 06-09-2023 End: 05-25-2024 CBC panel - Blood by Automated count CBC Lab Routine Deficiency of multiple nutrient elements Intestinal malabsorption, unspecified type Morbid obesity with BMI of 60.0-69.9, adult (HCC) Expected: 06/09/2023 (Approximate), Expires: 05/25/2024 [facility] Comment on above: Expected: 06/09/2023 (Approximate), Expi res: 05/25/2024 Start: 06-09-2023 End: 05-25-2024 Cobalamin (Vitamin B12) [Mass/volume] in Serum or Plasma Vitamin B12 Lab Routine Deficiency of multiple nutrient elements Intestinal malabsorption, unspecified type Morbid obesity with BMI of 60.0-69.9, adult (HCC) Expected: 06/09/2023 (Approximate), Expires: 05/25/2024 [facility] Comment on above: Expected: 06/09/2023 (Approximate), Expi res: 05/25/2024 Start: 06-09-2023 End: 05-25-2024 Comprehensive metabolic 1998 panel - Serum or Plasma Comprehensive metabolic panel Lab Routine Deficiency of multiple nutrient elements Intestinal malabsorption, unspecified type Morbid obesity with BMI of 60.0-69.9, adult (HCC) Expected: 06/09/2023 (Approximate), Expires: 05/25/2024 [facility] Comment on above: Expected: 06/09/2023 (Approximate), Expi res: 05/25/2024 Start: 06-09-2023 End: 05-25-2024 Ferritin [Mass/volume] in Serum or Plasma Ferritin Lab Routine Deficiency of multiple nutrient elements Intestinal malabsorption, unspecified type Morbid obesity with BMI of 60.0-69.9, adult (HCC) Expected: 06/09/2023 (Approximate), Expires: 05/25/2024 [facility] Comment on above: Expected: 06/09/2023 (Approximate), Expi res: 05/25/2024 Start: 06-09-2023 End: 05-25-2024 Folate [Mass/volume] in Serum or Plasma Folate Lab Routine Deficiency of multiple nutrient elements Intestinal malabsorption, unspecified type Morbid obesity with BMI of 60.0-69.9, adult (HCC) Expected: 06/09/2023 (Approximate), Expires: 05/25/2024 [facility] Comment on above: Expected: 06/09/2023 (Approximate), Expi res: 05/25/2024 Start: 06-09-2023 End: 05-25-2024 Iron and Iron binding capacity panel - Serum or Plasma Iron Lab Routine Deficiency of multiple nutrient elements Intestinal malabsorption, unspecified type Morbid obesity with BMI of 60.0-69.9, adult (HCC) Expected: 06/09/2023 (Approximate), Expires: 05/25/2024 [facility] Comment on above: Expected: 06/09/2023 (Approximate), Expi res: 05/25/2024 Start: 06-09-2023 End: 05-25-2024 Magnesium [Mass/volume] in Serum or Plasma Magnesium Lab Routine Deficiency of multiple nutrient elements Intestinal malabsorption, unspecified type Morbid obesity with BMI of 60.0-69.9, adult (HCC) Expected: 06/09/2023 (Approximate), Expires: 05/25/2024 [facility] Comment on above: Expected: 06/09/2023 (Approximate), Expi res: 05/25/2024 Start: 06-09-2023 End: 05-25-2024 Zinc Zinc Lab Routine Deficiency of multiple nutrient elements Intestinal malabsorption, unspecified type Morbid obesity with BMI of 60.0-69.9, adult (HCC) Expected: 06/09/2023 (Approximate), Expires: 05/25/2024 [facility] [employer] Work Phone: Comment on above: Expected: 06/09/2023 (Approximate), Expi res: 05/25/2024 Start: 05-27-2023 End: 05-27-2023 Patient encounter procedure 05/27/2023 8:25 AM EDT Office Visit [facility] [place] [address] [place] [address] Memo Campbell MD [address] [place] [address] [address] [place] [address] [facility] [place] Start: 05-26-2023 End: 02-25-2024 25-hydroxyvitamin D3 [Mass/volume] in Serum or Plasma Vitamin D Deficiency Screening (Vit D 25) Lab Routine Vitamin D deficiency Expected: 05/26/2023 (Approximate), Expires: 02/25/2024 [facility] [employer] Work Phone: Comment on above: Expected: 05/26/2023 (Approximate), Expi res: 02/25/2024 Start: 05-26-2023 End: 02-25-2024 Cobalamin (Vitamin B12) [Mass/volume] in Serum or Plasma Vitamin B12 Lab Routine Low vitamin B12 level Expected: 05/26/2023 (Approximate), Expires: 02/25/2024 [facility] Comment on above: Expected: 05/26/2023 (Approximate), Expi res: 02/25/2024 Start: 05-20-2023 End: 05-20-2023 Patient encounter procedure 05/20/2023 7:10 AM EDT Office Visit [facility] [place] [address] [place] [address] Memo Campbell MD [address] [place] [address] [address] [place] [address] [facility] [place] Start: 05-10-2023 End: 05-10-2023 Admission to same day surgery center 05/10/2023 1:30 PM EDT - 05/10/2023 4:30 PM EDT Surgery [facility] MAIN OR [address] [place] [phone] Memo Campbell MD [address] [place], [place] [id number] LAPAROSCOPIC SANDRA-EN-Y GASTRIC BYPASS WITH LIVER WEDGE BIOPSY, POSSIBLE OPEN [76925 (CPT )] [facility] MAIN OR Comment on above: LAPAROSCOPIC SANDRA-EN-Y GASTRIC BYPASS WI TH LIVER WEDGE BIOPSY, POSSIBLE OPEN [07647 (CPT )] Start: 05-10-2023 End: 05-10-2023 Anesthesia consultation 05/10/2023 1:30 PM EDT Anesthesia Event [facility] MAIN OR [address] [place] [address] Rosalva Sandoval, TABLE RUNNER - OPHTHALMOLOGY SURGICAL TECHNICIAN [address] [place] [address] [facility] MAIN OR Start: 05-10-2023 End: 05-10-2023 Laps gstr rstcv px w/byp sandra-en-y limb <150 cm LAPAROSCOPIC SANDRA-EN-Y GASTRIC BYPASS WITH LIVER WEDGE BIOPSY POSSIBLE OPEN Morbid (severe) obesity due to excess calories (HCC) 05/10/2023 1:30 PM EDT [facility] Operating Room Start: 05-10-2023 Subsequent hospital visit by physician 05/10/2023 1:30 PM EDT Hospital Encounter [facility] MA[facility] OR [address] [place] [phone] Memo Campbell MD [address] [place] [address] [facility] MAIN OR Start: 05-10-2023 End: 05-10-2023 Unlis laparoscopic procedure liver UNLISTED LAPAROSCOPIC PROCEDURE LIVER Morbid (severe) obesity due to excess calories (HCC) 05/10/2023 1:30 PM EDT [facility] Operating Room Start: 05-03-2023 End: 05-03-2023 Admission to establishment 05/03/2023 11:30 AM EDT Pre-Admission Testing [facility] Pre-Admit Testing [address] [facility] [place] [address] [facility] Pre-Admit Testing Start: 03-17-2023 End: 12-16-2023 25-hydroxyvitamin D3 [Mass/volume] in Serum or Plasma Vitamin D Deficiency Screening (Vit D 25) Lab Routine Vitamin D deficiency Expected: 03/17/2023 (Approximate), Expires: 12/16/2023 [facility] [employer] Work Phone: Comment on above: Expected: 03/17/2023 (Approximate), Expi res: 12/16/2023 Start: 03-17-2023 End: 12-16-2023 Cobalamin (Vitamin B12) [Mass/volume] in Serum or Plasma Vitamin B12 Lab Routine Low vitamin B12 level Expected: 03/17/2023 (Approximate), Expires: 12/16/2023 [facility] Comment on above: Expected: 03/17/2023 (Approximate), Expi res: 12/16/2023 Start: 03-17-2023 End: 12-16-2023 Ferritin [Mass/volume] in Serum or Plasma Ferritin Lab Routine Low serum ferritin level Low serum iron Expected: 03/17/2023 (Approximate), Expires: 12/16/2023 [facility] Comment on above: Expected: 03/17/2023 (Approximate), Expi res: 12/16/2023 Start: 03-17-2023 End: 12-16-2023 Iron and Iron binding capacity panel - Serum or Plasma Iron Lab Routine Low serum ferritin level Low serum iron Expected: 03/17/2023 (Approximate), Expires: 12/16/2023 [facility] Comment on above: Expected: 03/17/2023 (Approximate), Expi res: 12/16/2023 Start: 03-17-2023 End: 12-16-2023 Protein [Mass/volume] in Serum or Plasma Protein, total Lab Routine Abnormal serum total protein level Expected: 03/17/2023 (Approximate), Expires: 12/16/2023 [facility] Comment on above: Expected: 03/17/2023 (Approximate), Expi res: 12/16/2023 Start: 02-05-2023 End: 02-05-2023 Patient encounter procedure 02/05/2023 12:40 PM EST Office Visit [facility] [place] [address] [place] [phone] Mary Tirado MD [address] [place] [address] [facility] [place] Start: 01-25-2023 End: 01-25-2023 Patient encounter procedure 01/25/2023 10:40 AM EST Office Visit [facility] Pulmonary and Sleep Medicine [address] [place] [phone] Hyun Hirsch PA-C [address] [place], [place] [phone] [facility] Start: 01-18-2023 End: 01-18-2023 Patient encounter procedure 01/18/2023 9:30 AM EST Office Visit [facility] [place] [address] [place] [phone] Mary Tirado MD [address] [place], [place] [phone] [facility] [place] Start: 01-12-2023 End: 01-12-2023 Patient encounter procedure 01/12/2023 1:00 PM EST Appointment [facility] Non-Invasive Cardiology [address] [place] [phone] Matteo Abreu MD [address] [place] [address] [facility] Non-Invasive Cardiology Start: 01-12-2023 End: 01-12-2023 Admission to same day surgery center [facility] Comment on above: EGD WITH BIOPSY [58754 (CPT )] Start: 01-12-2023 End: 01-12-2023 Egd transoral biopsy single/multiple [facility] Start: 01-12-2023 Subsequent hospital visit by physician [facility] Start: 01-08-2023 End: 01-08-2023 Patient encounter procedure 01/08/2023 2:00 PM EST Office Visit [facility] Cardiology [address] [place] [address] Delphine Sanchez MD [address] [place], [place] [phone] [facility] Start: 12-22-2022 End: 12-22-2024 US Heart Transthoracic Transthoracic echocardiogram (TTE) complete with contrast, bubble, strain, and 3D PRN CV Echocardiography Routine Paroxysmal atrial fibrillation (HCC) Expected: 12/22/2022 (Approximate), Expires: 12/22/2024 [facility] [employer] Work Phone: Comment on above: Expected: 12/22/2022 (Approximate), Expi res: 12/22/2024 Start: 12-14-2022 End: 12-14-2022 Patient encounter procedure 12/14/2022 8:50 AM EDT Office Visit [facility] [place] [address] [place] [address] Mary Tirado MD [address] [place] [address] [facility] [place] Start: 11-02-2022 End: 11-02-2022 Clinical Support [facility] [place] Start: 10-23-2022 COVID-19 Vaccine ( season) COVID-19 Vaccine ( season) [facility] Start: 10-23-2022 Influenza vaccination Influenza Vaccine (#1) [facility] Start: 10-07-2022 End: 10-01-2023 25-hydroxyvitamin D3 [Mass/volume] in Serum or Plasma Vitamin D Deficiency Screening (Vit D 25) Lab Routine Prediabetes Morbid obesity with BMI of 60.0-69.9, adult (HCC) Chronic midline low back pain without sciatica Daytime sleepiness Pre-operative laboratory examination Expected: 10/07/2022, Expires: 10/01/2023 [facility] Comment on above: Expected: 10/07/2022, Expires: Start: 10-07-2022 End: 10-01-2023 CBC panel - Blood by Automated count CBC Lab Routine Prediabetes Morbid obesity with BMI of 60.0-69.9, adult (HCC) Chronic midline low back pain without sciatica Daytime sleepiness Pre-operative laboratory examination Expected: 10/07/2022, Expires: 10/01/2023 [employer] Comment on above: Expected: 10/07/2022, Expires: Start: 10-07-2022 End: 10-01-2023 Cobalamin (Vitamin B12) [Mass/volume] in Serum or Plasma Vitamin B12 Lab Routine Prediabetes Morbid obesity with BMI of 60.0-69.9, adult (HCC) Chronic midline low back pain without sciatica Daytime sleepiness Pre-operative laboratory examination Expected: 10/07/2022, Expires: 10/01/2023 [employer] Comment on above: Expected: 10/07/2022, Expires: Start: 10-07-2022 End: 10-01-2023 Comprehensive metabolic 1998 panel - Serum or Plasma Comprehensive metabolic panel Lab Routine Prediabetes Morbid obesity with BMI of 60.0-69.9, adult (HCC) Chronic midline low back pain without sciatica Daytime sleepiness Pre-operative laboratory examination Expected: 10/07/2022, Expires: 10/01/2023 [employer] Comment on above: Expected: 10/07/2022, Expires: Start: 10-07-2022 End: 10-01-2023 Ferritin [Mass/volume] in Serum or Plasma Ferritin Lab Routine Prediabetes Morbid obesity with BMI of 60.0-69.9, adult (HCC) Chronic midline low back pain without sciatica Daytime sleepiness Pre-operative laboratory examination Expected: 10/07/2022, Expires: 10/01/2023 [employer] Comment on above: Expected: 10/07/2022, Expires: Start: 10-07-2022 End: 10-01-2023 Folate [Mass/volume] in Serum or Plasma Folate Lab Routine Prediabetes Morbid obesity with BMI of 60.0-69.9, adult (HCC) Chronic midline low back pain without sciatica Daytime sleepiness Pre-operative laboratory examination Expected: 10/07/2022, Expires: 10/01/2023 [employer] Comment on above: Expected: 10/07/2022, Expires: Start: 10-07-2022 End: 10-01-2023 Hemoglobin A1c/Hemoglobin.total in Blood Hemoglobin A1c Lab Routine Prediabetes Morbid obesity with BMI of 60.0-69.9, adult (HCC) Chronic midline low back pain without sciatica Daytime sleepiness Pre-operative laboratory examination Expected: 10/07/2022, Expires: 10/01/2023 [facility] [employer] Work Phone: Comment on above: Expected: 10/07/2022, Expires: Start: 10-07-2022 End: 10-01-2023 Iron and Iron binding capacity panel - Serum or Plasma Iron Lab Routine Prediabetes Morbid obesity with BMI of 60.0-69.9, adult (HCC) Chronic midline low back pain without sciatica Daytime sleepiness Pre-operative laboratory examination Expected: 10/07/2022, Expires: 10/01/2023 [employer] Comment on above: Expected: 10/07/2022, Expires: Start: 10-07-2022 End: 10-01-2023 Lipid 1996 panel - Serum or Plasma Lipid panel Lab Routine Prediabetes Morbid obesity with BMI of 60.0-69.9, adult (HCC) Chronic midline low back pain without sciatica Daytime sleepiness Pre-operative laboratory examination Expected: 10/07/2022, Expires: 10/01/2023 [employer] [facility] Comment on above: Expected: 10/07/2022, Expires: Start: 10-07-2022 End: 10-01-2023 Magnesium [Mass/volume] in Serum or Plasma Magnesium Lab Routine Prediabetes Morbid obesity with BMI of 60.0-69.9, adult (HCC) Chronic midline low back pain without sciatica Daytime sleepiness Pre-operative laboratory examination Expected: 10/07/2022, Expires: 10/01/2023 [facility] Comment on above: Expected: 10/07/2022, Expires: Start: 10-07-2022 End: 10-01-2023 Thyrotropin [Units/volume] in Serum or Plasma TSH Lab Routine Prediabetes Morbid obesity with BMI of 60.0-69.9, adult (HCC) Chronic midline low back pain without sciatica Daytime sleepiness Pre-operative laboratory examination Expected: 10/07/2022, Expires: 10/01/2023 [employer] Comment on above: Expected: 10/07/2022, Expires: 4 Start: 10-07-2022 End: 10-01-2023 Vitamin B1, whole blood Vitamin B1, whole blood Lab Routine Prediabetes Morbid obesity with BMI of 60.0-69.9, adult (HCC) Chronic midline low back pain without sciatica Daytime sleepiness Pre-operative laboratory examination Expected: 10/07/2022, Expires: 10/01/2023 [employer] Comment on above: Expected: 10/07/2022, Expires: 4 Start: 10-07-2022 End: 10-01-2023 Zinc Zinc Lab Routine Prediabetes Morbid obesity with BMI of 60.0-69.9, adult (HCC) Chronic midline low back pain without sciatica Daytime sleepiness Pre-operative laboratory examination Expected: 10/07/2022, Expires: 10/01/2023 [employer] Comment on above: Expected: 10/07/2022, Expires: 4 Start: 09-03-[address] [facility] Work Phone: Start: 06-11-2022 Colonoscopy w/biopsy single/multiple COLONOSCOPY AND BIOPSY [facility] Start: 06-11-2022 Egd transoral biopsy single/multiple EGD BIOPSY SINGLE/MULTIPLE [facility] Start: 06-11-[address] [facility] Start: 05-07-[address] [facility] Start: 03-11-2022 Chlamydia deoxyribonucleic acid detection [facility] Start: 03-11-2022 Beta 2 glycoprotein 1 Ab IgA and IgG and IgM panel - Serum [facility] Start: 03-11-2022 Cardiolipin IgA and IgG and IgM panel - Serum [facility] Start: 03-11-2022 Cardiolipin IgG and IgM panel - Serum [facility] Start: 03-11-2022 Lupus anticoagulant assay [facility] Start: 01-02-2021 COVID-19 Vaccine (5 - Booster for Moderna series) COVID-19 Vaccine (5 - Booster for Moderna series) [facility] Start: 01-02-2021 COVID-19 Vaccine (5 - Moderna series) COVID-19 Vaccine (5 - Moderna series) [facility] Start: 06-01-2018 Varicella (1 of 2 - 13+ 2-dose series) Varicella (1 of 2 - 13+ 2-dose series) [facility] Start: 06-01-2018 Varicella vaccination [facility] Start: 09-21-2016 Microscopic observation [Identifier] in Cervix by Cyto stain Pap Smear [facility] Start: 09-21-2016 Screening for malignant neoplasm of cervix Pap Smear [facility] Start: 09-21-2014 Hepatitis A Vaccines (1 of 2 - Risk 2-dose series) Hepatitis A Vaccines (1 of 2 - Risk 2-dose series) [facility] Start: 09-21-2013 Hepatitis C screening Hepatitis C Screening [facility] Start: 2011 MenB (1 of 2 - MenB 2-Dose Series Bexsero) MenB (1 of 2 - MenB 2-Dose Series Bexsero) [facility] Start: 2007 Depression Monitoring Depression Monitoring [facility] Start: 2007 Depression Screening Depression Screening [facility] Start: 09-21-2006 DTaP/Tdap/Td Vaccines (6 - Tdap) DTaP/Tdap/Td Vaccines (6 - Tdap) [facility] Start: 09-21-2006 HPV Vaccines (1 - 2-dose series) HPV Vaccines (1 - 2-dose series) [facility] Start: 09-21-2006 Tetanus Diphtheria and Pertussis Vaccines (6 - Tdap) Tetanus Diphtheria and Pertussis Vaccines (6 - Tdap) [facility] Start: 1995 HIV screening HIV Screening [facility] Start: 1995 Lipid panel Lipid Panel [facility] Bacteria identified in Blood by Culture [facility] End: 10-27-2023 Bacteria identified in Urine by Culture [facility] Work Phone: Comment on above: Once (Lab) for 1 Occurrences starting until 10/27/2023 Beta 2 glycoprotein 1 IgA Ab [Presence] in Serum [facility] Beta 2 glycoprotein 1 IgG Ab [Presence] in Serum [facility] Beta 2 glycoprotein 1 IgM Ab [Presence] in Serum [facility] End: 07-19-2024 Beta 2 Glycoprotein IgG, IgM, IgA [facility] Comment on above: 1 Occurrences starting 07/19/2024 until 07/19/2024 End: 07-19-2024 Cardiolipin Ab [facility] Work Phone: Comment on above: 1 Occurrences starting 07/19/2024 until 07/19/2024 Cardiolipin IgA Ab [Units/volume] in Serum by Immunoassay [facility] Cardiolipin IgG Ab [Units/volume] in Serum or Plasma [facility] Cardiolipin IgM Ab [Units/volume] in Serum or Plasma [facility] Choriogonadotropin ( test) [Presence] in Serum or Plasma [facility] Clostridioides diffi cile DNA [Presence] in Unspecified specimen by [place] with probe detection [facility] End: 07-19-2024 Dilute RVVT SCREEN RATIO WITH REFLEX [facility] Comment on above: 1 Occurrences starting 07/19/2024 until 07/19/2024 ECG 12 lead - CLINIC PERFORMED ECG 12 lead - CLINIC PERFORMED CV ECG Routine Paroxysmal atrial fibrillation (HCC) 01/08/2023 2:06 PM [employer] Work Phone: ECG 12 lead - CLINIC PERFORMED ECG 12 lead - CLINIC PERFORMED CV ECG Routine Paroxysmal atrial fibrillation (HCC) 02/11/2024 9:38 AM [employer] Work Phone: Electrocardiographic procedure [facility] Erythrocyte mean corpuscular volume determination [facility] Gastrointestinal pat hogens panel - Stool by [place] with probe detection [facility] Hematocrit [Volume Fraction] of Blood [facility] Hemoglobin [Mass/vol ume] in Blood [facility] Lactoferrin [Presenc e] in Stool by Immunoassay [facility] Leukocytes [#/volume ] in Blood [facility] Lupus anticoagulant neutralization platelet [Time] in Platelet poor plasma by Coagulation assay [facility] Mean corpuscular hem oglobin concentration determination [facility] Mean corpuscular hem oglobin determination [facility] Neisseria gonorrhoea e rRNA [Presence] in Unspecified specimen by [place] with probe detection [facility] Neutrophil count [facility] Neutrophil percent differential count [facility] End: 10-29-2023 Nuclear Ab [Titer] in Serum by Immunofluorescence [employer] Work Phone: Comment on above: Once (Lab) for 1 Occurrences starting until 10/29/2023 Partial thromboplast in time ratio [facility] End: 10-27-2023 Pathology Review [employer] Work Phone: Comment on above: Once (Lab) for 1 Occurrences starting until 10/27/2023, 1 completed Patient Education [facility] Work Phone: Patient referral [facility] Work Phone: PCR test for Chlamyd ia trachomatis [facility] Platelets [#/volume] in Blood [facility] Protein measurement [facility] Red blood cell count [facility] Red cell distributio n width determination [facility] End: 10-29-2023 Smooth muscle antibody with reflex Titer [employer] Comment on above: Once (Lab) for 1 Occurrences starting until 10/29/2023 Thrombin time [facility] Tissue exam [employer] Work Phone: Comment on above: Release Upon Ordering for 1 Occurrences starting 01/12/2023 Tissue exam [employer] Work Phone: Comment on above: Release Upon Ordering for 1 Occurrences starting 05/10/2023, 1 completed Urine culture [facility] Vitamin B1, whole blood Vitamin B1, whole blood Lab Routine Prediabetes Morbid obesity with BMI of 60.0-69.9, adult (HCC) Chronic midline low back pain without sciatica Daytime sleepiness Pre-operative laboratory examination 12/14/2022 10:37 AM EDT [employer] End: 10-30-2023 Vitamin B1, whole blood Vitamin B1, whole blood Lab Routine Morning draw (Lab) for 1 Occurrences starting 10/30/2023 until 10/30/2023 [employer] Work Phone: Comment on above: Morning draw (Lab) for 1 Occurrences sta rting 10/30/2023 until 10/30/2023 End: 11-01-2023 Vitamin B1, whole blood [employer] Comment on above: Once (Lab) for 1 Occurrences starting until 11/01/2023 Vitamin B1, whole blood Vitamin B1, whole blood Lab Routine 10/30/2023 1:38 PM EDT [employer] Vitamin B1, whole bl ood ([facility]) Vitamin B1, whole blood ([facility]) Lab Routine Deficiency of multiple nutrient elements Intestinal malabsorption, unspecified type History of gastric bypass Primary hypertension MOE on CPAP Morbid obesity with BMI of 45.0-49.9, adult ([facility]) 02/11/2024 10:31 AM EST [employer] Vitamin B1, whole bl ood ([facility]) Vitamin B1, whole blood ([facility]) Lab Routine Deficiency of multiple nutrient elements Intestinal malabsorption, unspecified type History of gastric bypass 05/11/2024 9:42 AM EDT [employer] Zinc Zinc Lab Routine Prediabetes Morbid obesity with BMI of 60.0-69.9, adult ([facility]) Chronic midline low back pain without sciatica Daytime sleepiness Pre-operative laboratory examination 12/14/2022 10:37 AM EDT [employer] Zinc Zinc Lab Routine MOE on CPAP Primary hypertension Prediabetes Deficiency of multiple nutrient elements Intestinal malabsorption, unspecified type Morbid obesity with BMI of 50.0-59.9, adult ([facility]) 08/11/2023 10:25 AM [employer] [facility] End: 11-01-2023 Zinc [employer] Comment on above: Once (Lab) for 1 Occurrences starting until 11/01/2023 Zinc (Sendout) Zinc ([facility]) L ab Routine Deficiency of multiple nutrient elements Intestinal malabsorption, unspecified type History of gastric bypass Primary hypertension MOE on CPAP Morbid obesity with BMI of 45.0-49.9, adult ([facility]) 02/11/2024 10:31 AM EST [employer] Zinc (Sendout) Zinc ([facility]out) L ab Routine Deficiency of multiple nutrient elements Intestinal malabsorption, unspecified type History of gastric bypass 05/11/2024 9:42 AM EDT [employer] [facility] Immunizations Immunization Date Immunization Notes Care Provider Rajinder jerez 11-07-2020 Covid (Moderna) [facility] 10-07-2020 Covid (Moderna) [facility] 05-04-2018 measles, mumps and rubella virus vaccine [facility] Payers Date Payer Category Payer Self-pay [id number] 2022 Medicaid [id number] 2022 Medicaid HMO [facility] MEDICAID ODM [id number] 2015 Unknown [facility] COMMUNITY PLAN [id number] 2015 Unknown [id number] 2000 Unknown [facility] [id number] 1995 Unknown [id number] 2..840.1.173784.3.579.2. 1995 Unknown [id number] 2..840.1.185616.3.579.2. 1995 Unknown [id number] 2.16.840.1.018678.3.579.2.9 1995 Unknown [id number] 2.16.840.1.822982.3.579.2. 1995 Unknown [id number] 2.16.840.1.015707.3.579.2.479 1995 Unknown [id number] 2.16.840.1.541001.3.579.2.479 1995 Unknown [id number] 2.16.840.1.733545.3.579.2.651 1995 Unknown [id number] 2.16.840.1.257299.3.579.2.651 1995 Unknown [id number] 2.16.840.1.735948.3.579.2.651 1995 Unknown [id number] 2.16840.1.077807.3.579.2.651 1995 Unknown [id number] 2.16840.1.289293.3.579.2.651 1995 Unknown [id number] 2.16840.1.610506.3.579.2.651 1995 Unknown [id number] 2.16840.1.723992.3.579.2.651 1995 Unknown [id number] 2.16840.1.234752.3.579.2.651 1995 Unknown [id number] 2.16840.1.693192.3.579.2.651 1995 Unknown [id number] 2.16840.1.668379.3.579.2.651 1995 Unknown [id number] 2.16.840.1.260043.3.579.2.651 1995 Unknown [id number] 2.16840.1.346296.3.579.2.651 1995 Unknown [id number] 2.16.840.1.290664.3.579.2.651 Unknown [id number] 2.16840.1.353904.3.579.2.462 Unknown [id number] 2.16.840.1.992042.3.579.2.462 Unknown [id number] 2.16.840.1.958643.3.579.2.462 Unknown [id number] 2.16.840.1.030259.3.579.2.462 Unknown [id number] 2.16.840.1.501382.3.579.2.462 Unknown [id number] 2.16.840.1.651147.3.579.2.462 Unknown [id number] 2.16.840.1.880749.3.579.2.462 Unknown [id number] 2.16840.1.779264.3.579.2.462 Unknown [id number] 2.16840.1.234401.3.579.2.462 Unknown [id number] 2.16840.1.843255.3.579.2.462 Unknown [id number] 2.16840.1.178444.3.579.2.462 Unknown [id number] 2.16.840.1.717940.3.579.2.462 Unknown [id number] 2.16.840.1.319166.3.579.2.462 Unknown [id number] 2.16.840.1.636769.3.579.2.462 Unknown [id number] 2.16840.1.573901.3.579.2.462 Unknown [id number] 2.16840.1.449167.3.579.2.462 Unknown [id number] 2.16.840.1.646241.3.579.2.462 Unknown [id number] 2.16.840.1.549724.3.579.2.462 Unknown [id number] 2.16.840.1.595628.3.579.2.462 Unknown [id number] 2.16840.1.304201.3.579.2.462 Unknown [id number] 2.16.840.1.925007.3.579.2.462 Unknown [id number] 2.16.840.1.863024.3.579.2.462 Unknown [id number] 2.16.840.1.006879.3.579.2.462 Unknown [id number] 2.16840.1.456170.3.579.2.462 Unknown [id number] 2.16.840.1.055703.3.579.2.462 Unknown [id number] 2.840.1.814752.3.579.2.462 Unknown [id number] 2.840.1.822135.3.579.2.462 Unknown [id number] 2.840.1.983167.3.579.2.462 Unknown [id number] 2.840.1.615787.3.579.2.462 Unknown [id number] 2.840.1.974940.3.579.2.462 Unknown [id number] 2.840.1.859583.3.579.2.462 Unknown [id number] 2.840.1.643721.3.579.2.462 Unknown [id number] 2.840.1.963699.3.579.2.462 Unknown [id number] 2.840.1.010542.3.579.2.462 Unknown [id number] 2.16840.1.786194.3.579.2.462 Unknown [id number] 2.840.1.381472.3.579.2.462 Unknown [id number] 2.16840.1.697289.3.579.2.462 Unknown [id number] 2.16840.1.993038.3.579.2.462 Unknown [id number] 2.16840.1.002965.3.579.2.462 Unknown [id number] 2.16.840.1.616256.3.579.2.462 Unknown [id number] 2.16.840.1.257591.3.579.2.462 Unknown [id number] 2.16840.1.858622.3.579.2.462 Unknown [id number] 2.840.1.891221.3.579.2.462 Social History Date Type Detail Facility Start: 03-12-2021 End: 09-24-2022 Tobacco smoking status VTIS Unknown if ever smoked [facility] Start: 1995 Sex Assigned At Female W [facility] Start: 09-10-2022 End: 07-31-2024 Tobacco smoking status VTIS Never smoked tobacco [facility] Start: 09-04-2020 End: 09-10-2022 Tobacco use and exposure Smokeless tobacco non-user [facility] Start: 09-10-2022 End: 11-13-2024 Alcohol intake Ex-drinker (finding) [facility] Start: 1995 Sex Assigned At Not on file [facility] Start: 09-10-2022 End: 10-28-2023 Gender identity Not on file [facility] Start: 08-31-2022 End: 11-02-2022 Exposure to SARS-CoV-2 (event) Not sure [facility] Start: 09-10-2022 End: 10-28-2023 History of Social function [facility] Has the Mobile Event [employer], [employer] threatened to shut off services in your home in past 12Mo No [facility] Do you belong to any clubs or organizations such as shinto groups, unions, fraternal or athletic groups, or school groups? Patient unable to answer [facility] Are you now , , , , never or living with a partner? Never [facility] How often to you hav e a drink containing alcohol? Never [facility] Do you feel stress - tense, restless, nervous, or anxious, or unable to sleep at night because your mind is troubled all the time - these days [OSQ] Only a little [facility] (I/We) worried wheth er (my/our) food would run out before (I/we) got money to buy more. Never true [facility] Do you belong to any clubs or organizations such as shinto groups, unions, fraternal or athletic groups, or school groups? Yes [facility] Are you now , , , , never or living with a partner? Living with partner [facility] Do you feel stress - tense, restless, nervous, or anxious, or unable to sleep at night because your mind is troubled all the time - these days [OSQ] Not at all [facility] Start: 09-07-2022 End: 06-28-2024 Sex Female (finding) [facility] NEGATED: Highlighted row [facility] NEGATED: Highlighted row Not [facility] Goals Date Patient Goal Desired Activity /State Mental Status Date Assessment Result Facility 08-01-2024 Cognitive function Level Of Cons ciousness Follows Commands;Drowsy [facility] Work Phone: 08-01-2024 Cognitive function Voice/Name [facility] Work Phone: 06-11-2022 Cognitive function Voice/Name [facility] Work Phone: Clinical Notes 06-11-2022 to 11-13-2024 Debbie Menendez MA - 11/13/2024 1:30 PM Nahum Tirado MD - 11/13/2024 1:30 PM EDT Note Date & Type Note Facility 11-13-2024 History of Present illness Narrative [facility] ROOMING [facility] POST WEIGHT LOSS SURGERY FOLLOW UP Patient: Anne Marie Peterson Service Date: 11/13/2024 Patient is 18 month(s) s/p RnY Gastric Bypass Today's Metrics: Post-Surgical Weight Loss Date: 11/13/24 Height: 5' 5.25 (165.7 cm) Weight: 242 lb (110 kg) BMI: 39.96 Weight Change: -13.2 lbs Total Weight Change: -161 lbs % EBWL: 58% Comments: 18M POP Post-op Weight Metrics: Post-Surgical Weight Loss Date: 11/13/24 Height: 5' 5.25 (165.7 cm) Weight: 242 lb (110 kg) BMI: 39.96 Weight Change: -13.2 lbs Total Weight Change: -161 lbs % EBWL: 58% Comments: 18M POP (From Surgical Weight Loss Tracker) Patient has the following questions: EATING 3 Pain: Patient rates pain on scale 0-10 as: 0 Exercise Compliance: Exercising: yes If yes: Type: RUNNING Times per week: 3 Min per session: 60 Falls Risk Assessment Patient does take medications which affect BP or mental status Patient does not t have newly prescribed or changed dosage of medications within past 30 days which affect BP or mental status Patient has not fallen in the past 2 months Patient does not t demonstrate unsteady gait Patient uses the following ambulatory assistive devices: NONE Patient states the presence of the following traits which increases risk of fall: NONE Patient is not on home O2 Pre-op Weight Metrics: Labs Completed: no - If NO, patient instructed to get labs drawn today or ALMAZ If YES: Labs completed at [facility]? yes If yes see Labs Tab Labs completed at Non-[facility] facility? no If yes see Encounters Tab - Orders only - Historical Provider - Date: Completed by: Debbie Menendez MA [facility] POST-OPERATIVE WEIGHT LOSS MANAGEMENT PROGRESS NOTE - FOLLOW UP HPI: Patient here today for 18 month post-weight loss surgery follow up @GENDER@ patient feeling well. Denies nausea, vomiting, dysphagia, or any GERD Sx. Currently is not taking a PPI. Patient states diet and exercise is going fairly well. Currently is eating 65-75 gm/day protein, and is not fully compliant with prescribed multivitamins and supplements. Weight trend since last visit: lost 13 lbs in 6 months. Pt doing pretty well with diet, has been under some stress, sometimes not usual meals and sometimes emotional eating. Labs were pending. All labs were: This patient's excess weight is causing the following co-morbid conditions at this time: preDM, HTN PLAN Physical Examination: BP (!) 144/99 Pulse 73 Ht 5' 5.25 (1.657 m) Wt 242 lb (110 kg) BMI 39.96 kg/m Vital signs are stable. General: This patient is awake, alert, and oriented, and is in no apparent distress. Cardiac: Regular rate and rhythm without evidence of murmur. Respiratory: Clear to auscultation bilaterally. Abdomen: Obese, soft, non-tender, non-distended without masses/ No evidence of abdominal hernia / Incisions consistent with previous surgeries. Head and Neck: Obese, normocephalic and atraumatic/soft and supple, no lymphadenopathy or obvious bruits. Extremities: No cyanosis, clubbing or edema/ No calf tenderness/No restrictions of movement, is ambulatory without assistance. Neurological: Intact x 4 extremities, no focal deficits notes. Skin: No rashes or lesions noted. Rectal: Deferred Current Diet Sporadic eating Her diet contains adequate amounts of protein, adequate amounts of healthy fats, adequate amounts of green, leafy vegetables, and adequate amounts of fruits. Her comfort foods include:none Current Activity This patient currently runs 3x per wk 3 miles. Current Eating Behaviors This patients demonstrates the following behaviors as they relate to her eating: some emotional eating She eats approximately 3-4 times per day. Progress Made Towards Goals: 3 month weight goal: 15 6 month weight goal: 30 12 month weight goal: 30 Plan: Diagnosis Plan 1. Prediabetes Hemoglobin A1c Hemoglobin A1c 2. Hypertension, unspecified type 3. Deficiency of other specified B group vitamins CBC auto differential Comprehensive metabolic panel Ferritin Folate Iron Lipid panel Magnesium Vitamin B1, whole blood ([facility]) Vitamin B12 Vitamin D Deficiency Screening (Vit D 25) Zinc CBC auto differential Comprehensive metabolic panel Ferritin Folate Iron Lipid panel Magnesium Vitamin B1, whole blood ([facility]) Vitamin B12 Vitamin D Deficiency Screening (Vit D 25) Zinc 4. Intestinal malabsorption, unspecified type CBC auto differential Comprehensive metabolic panel Ferritin Folate Iron Lipid panel Magnesium Vitamin B1, whole blood ([facility]) Vitamin B12 Vitamin D Deficiency Screening (Vit D 25) Zinc CBC auto differential Comprehensive metabolic panel Ferritin Folate Iron Lipid panel Magnesium Vitamin B1, whole blood ([facility]) Vitamin B12 Vitamin D Deficiency Screening (Vit D 25) Zinc 5. Screening, lipid preDM- stable, con't low glycemic diet, pending HbA1c to recheck. HTN- stable, BP high today, pt feels it usually controlled, ocn't F/U with PCP and or cardiology. Malabsorption- stable, s/p remote RYGb, Pending POP labs, including CMP, CBC and B12 as well as others, ordered today. Will contact pt with results. Pt advised to take supplements as advised, pt taking only MVI. Obesity- Stable chronic, pt doing pretty well with diet. Meal ideas discussed. F/U 6 months. MDM- pt's medical conditions place them at moderate risk of complications, morbidity and mortality. [x] Protein goal of 1g protein per 1 kg of ideal body weight: 80 grams [] Patient advised to maintain a food/exercise/behavior diary until next physician visit. Pt to bring the completed diary to next visit [] Lab order provided to patient for labs to be drawn for next visit Patient instructed to continue post-weight loss surgery diet recommendations. Patient instructed to continue to monitor for signs and symptoms of GERD Psych concerns : yes, pt seeing psychology Excessive skin concerns: no Other: Physician Diet Recommendations given to patient See Follow up Section of today's encounter for next visit and additional scheduling orders Orders Placed This Encounter Procedures CBC auto differential Standing Status: Future Number of Occurrences: 1 Expected Date: 11/13/2024 Expiration Date: 11/13/2025 Comprehensive metabolic panel Standing Status: Future Number of Occurrences: 1 Expected Date: 11/13/2024 Expiration Date: 11/13/2025 Ferritin Standing Status: Future Number of Occurrences: 1 Expected Date: 11/13/2024 Expiration Date: 11/13/2025 Folate Standing Status: Future Number of Occurrences: 1 Expected Date: 11/13/2024 Expiration Date: 11/13/2025 Iron Standing Status: Future Number of Occurrences: 1 Expected Date: 11/13/2024 Expiration Date: 11/13/2025 Lipid panel Standing Status: Future Number of Occurrences: 1 Expected Date: 11/13/2024 Expiration Date: 11/13/2025 Magnesium Standing Status: Future Number of Occurrences: 1 Expected Date: 11/13/2024 Expiration Date: 11/13/2025 Vitamin B1, whole blood ([facility]) Standing Status: Future Number of Occurrences: 1 Expected Date: 11/13/2024 Expiration Date: 11/13/2025 Vitamin B12 Standing Status: Future Number of Occurrences: 1 Expected Date: 11/13/2024 Expiration Date: 11/13/2025 Vitamin D Deficiency Screening (Vit D 25) Standing Status: Future Number of Occurrences: 1 Expected Date: 11/13/2024 Expiration Date: 11/13/2025 Zinc Standing Status: Future Number of Occurrences: 1 Expected Date: 11/13/2024 Expiration Date: 11/13/2025 Hemoglobin A1c Standing Status: Future Number of Occurrences: 1 Expected Date: 11/13/2024 Expiration Date: 11/13/2025 Medications ordered during this encounter: Encounter Medications[1] Visit Diagnoses: 1. Prediabetes 2. Hypertension, unspecified type 3. Deficiency of other specified B group vitamins 4. Intestinal malabsorption, unspecified type 5. Screening, lipid Current Medications: Patient's Medications New Prescriptions No medications on file Previous Medications FERROUS SULFATE 325 (65 FE) MG TABLET Take 1 tablet (325 mg) by mouth 2 times daily. FLECAINIDE (TAMBOCOR) 50 MG TABLET Take 3 tablets (150 mg) by mouth Once as needed (Take 3 pills as needed for episodes of atrial fibrillation). MULTIPLE VITAMINS-MINERALS (CENTRUM ADULTS) TABLET Take 2 tablets by mouth daily. NYSTATIN (MYCOSTATIN) 908373 UNIT/GM POWDER Apply topically 2 times daily. Modified Medications No medications on file Discontinued Medications CALCIUM CITRATE 250 MG TABLET Take 2 tablets (500 mg) by mouth 3 times daily. Take 2 tablets by mouth three times daily. CYANOCOBALAMIN (B-12) [address] 500 mcg under the tongue daily. Place 500 mcg under the tongue to dissolve once daily ERGOCALCIFEROL (VITAMIN D2) 1.25 MG (03825 UT) CAPSULE Take 1 capsule (1.25 mg) by mouth 1 (one) time per week. Take one capsule by mouth weekly for 8 weeks. MAGNESIUM 30 MG TABLET Take 30 mg by mouth 2 times daily. METOPROLOL TARTRATE (LOPRESSOR) 25 MG TABLET Take 1 tablet (25 mg) by mouth 2 times daily. RESPIRATORY THERAPY SUPPLIES (CARETOUCH 2 CPAP HOSE DRUG ABUSE TREATMENT SPECIALIST) MISC CPAP 10 cm h20 THIAMINE (VITAMIN B-1) 50 MG TABLET Take 1 tablet (50 mg) by mouth daily. Take 1 tablet by mouth daily. VITAMIN D, CHOLECALCIFEROL, PO Take 4,000 Int'l Units by mouth daily. ZINC 50 MG TABLET Take 1 tablet (50 mg) by mouth daily. [1] Outpatient Encounter Medications as of 11/13/2024 Medication Sig Dispense Refill ferrous sulfate 325 (65 Fe) MG tablet Take 1 tablet (325 mg) by mouth 2 times daily. 60 tablet 3 flecainide (Tambocor) 50 MG tablet Take 3 tablets (150 mg) by mouth Once as needed (Take 3 pills as needed for episodes of atrial fibrillation). 30 tablet 3 Multiple Vitamins-Minerals (Centrum Adults) tablet Take 2 tablets by mouth daily. 60 tablet 11 nystatin (Mycostatin) 611774 UNIT/GM powder Apply topically 2 times daily. [DISCONTINUED] calcium citrate 250 MG tablet Take 2 tablets (500 mg) by mouth 3 times daily. Take 2 tablets by mouth three times daily. 180 tablet 11 [DISCONTINUED] Cyanocobalamin (B-12) [address] 500 mcg under the tongue daily. Place 500 mcg under the tongue to dissolve once daily 30 tablet 11 [DISCONTINUED] ergocalciferol (Vitamin D2) 1.25 MG (35164 UT) capsule Take 1 capsule (1.25 mg) by mouth 1 (one) time per week. Take one capsule by mouth weekly for 8 weeks. (Patient not taking: Reported on 05/11/2024) 8 capsule 0 [DISCONTINUED] magnesium 30 MG tablet Take 30 mg by mouth 2 times daily. [DISCONTINUED] metoprolol tartrate (Lopressor) 25 MG tablet Take 1 tablet (25 mg) by mouth 2 times daily. (Patient taking differently: Take 25 mg by mouth 2 times daily.) 60 tablet 11 [DISCONTINUED] Respiratory Therapy Supplies (CareTouch 2 CPAP Hose Milk Receiver Tank Truck) misc CPAP 10 cm h20 [DISCONTINUED] thiamine (Vitamin B-1) 50 MG tablet Take 1 tablet (50 mg) by mouth daily. Take 1 tablet by mouth daily. 30 tablet 11 [DISCONTINUED] VITAMIN D, CHOLECALCIFEROL, PO Take 4,000 Int'l Units by mouth daily. [DISCONTINUED] zinc 50 MG tablet Take 1 tablet (50 mg) by mouth daily. 30 tablet 3 No facility-administered encounter medications on file as of 11/13/2024. documented in this encounter [facility] 11-13-2024 Note [facility] POST-OPERATIVE WEIGHT LOSS MANAGEMENT PROGRESS NOTE - FOLLOW UP HPI: Patient here today for 18 month post-weight loss surgery follow up @GENDER@ patient feeling well. Denies nausea, vomiting, dysphagia, or any GERD Sx. Currently is not taking a PPI. Patient states diet and exercise is going fairly well. Currently is eating 65-75 gm/day protein, and is not fully compliant with prescribed multivitamins and supplements. Weight trend since last visit: lost 13 lbs in 6 months. Pt doing pretty well with diet, has been under some stress, sometimes not usual meals and sometimes emotional eating. Labs were pending. All labs were: This patient's excess weight is causing the following co-morbid conditions at this time: preDM, HTN PLAN Physical Examination: BP (!) 144/99 Pulse 73 Ht 5' 5.25 (1.657 m) Wt 242 lb (110 kg) BMI 39.96 kg/m? Vital signs are stable. General: This patient is awake, alert, and oriented, and is in no apparent distress. Cardiac: Regular rate and rhythm without evidence of murmur. Respiratory: Clear to auscultation bilaterally. Abdomen: Obese, soft, non-tender, non-distended without masses/ No evidence of abdominal hernia / Incisions consistent with previous surgeries. Head and Neck: Obese, normocephalic and atraumatic/soft and supple, no lymphadenopathy or obvious bruits. Extremities: No cyanosis, clubbing or edema/ No calf tenderness/No restrictions of movement, is ambulatory without assistance. Neurological: Intact x 4 extremities, no focal deficits notes. Skin: No rashes or lesions noted. Rectal: Deferred Current Diet Sporadic eating Her diet contains adequate amounts of protein, adequate amounts of healthy fats, adequate amounts of green, leafy vegetables, and adequate amounts of fruits. Her comfort foods include:none Current Activity This patient currently runs 3x per wk 3 miles. Current Eating Behaviors This patients demonstrates the following behaviors as they relate to her eating: some emotional eating She eats approximately 3-4 times per day. Progress Made Towards Goals: 3 month weight goal: 15 6 month weight goal: 30 12 month weight goal: 30 Plan: Diagnosis Plan 1. Prediabetes Hemoglobin A1c Hemoglobin A1c 2. Hypertension, unspecified type 3. Deficiency of other specified B group vitamins CBC auto differential Comprehensive metabolic panel Ferritin Folate Iron Lipid panel Magnesium Vitamin B1, whole blood ([facility]) Vitamin B12 Vitamin D Deficiency Screening (Vit D 25) Zinc CBC auto differential Comprehensive metabolic panel Ferritin Folate Iron Lipid panel Magnesium Vitamin B1, whole blood ([facility]) Vitamin B12 Vitamin D Deficiency Screening (Vit D 25) Zinc 4. Intestinal malabsorption, unspecified type CBC auto differential Comprehensive metabolic panel Ferritin Folate Iron Lipid panel Magnesium Vitamin B1, whole blood ([facility]) Vitamin B12 Vitamin D Deficiency Screening (Vit D 25) Zinc CBC auto differential Comprehensive metabolic panel Ferritin Folate Iron Lipid panel Magnesium Vitamin B1, whole blood ([facility]) Vitamin B12 Vitamin D Deficiency Screening (Vit D 25) Zinc 5. Screening, lipid preDM- stable, con't low glycemic diet, pending HbA1c to recheck. HTN- stable, BP high today, pt feels it usually controlled, ocn't F/U with PCP and or cardiology. Malabsorption- stable, s/p remote RYGb, Pending POP labs, including CMP, CBC and B12 as well as others, ordered today. Will contact pt with results. Pt advised to take supplements as advised, pt taking only MVI. Obesity- Stable chronic, pt doing pretty well with diet. Meal ideas discussed. F/U 6 months. MDM- pt's medical conditions place them at moderate risk of complications, morbidity and mortality. [x] Protein goal of 1g protein per 1 kg of ideal body weight: 80 grams [] Patient advised to maintain a food/exercise/behavior diary until next physician visit. Pt to bring the completed diary to next visit [] Lab order provided to patient for labs to be drawn for next visit Patient instructed to continue post-weight loss surgery diet recommendations. Patient instructed to continue to monitor for signs and symptoms of GERD Psych concerns : yes, pt seeing psychology Excessive skin concerns: no Other: Physician Diet Recommendations given to patient See Follow up Section of today's encounter for next visit and additional scheduling orders Orders Placed This Encounter Procedures CBC auto differential Standing Status: Future Number of Occurrences: 1 Expected Date: 11/13/2024 Expiration Date: 11/13/2025 Comprehensive metabolic panel Standing Status: Future Number of Occurrences: 1 Expected Date: 11/13/2024 Expiration Date: 11/13/2025 Ferritin Standing Status: Future Number of Occurrences: 1 Expected Date: 11/13/2024 Expiration Date: 11/13/2025 (more content not included)... [facility] 08-01-[address] [facility] 08-01-2024 Consult note Note Date/Time August 01, 2024 10:32am [facility] Medical Records Department [address] [place] [address] Pre-Anesthesia Evaluation 08/01/24 1031 MR#: [id number] Acct: [id number] Name: ANNE MARIE PETERSON Rep #[id number] : 1995 28 From: Dash Brewer MD PCP: Xenia Lane PA-C Status:REG S DC Y Race: [facility] Location: [place] [address] ASA Classification* ASA Classification ASA Classification: 3 Assessment & Plan Anesthesia* Anesthesia Assessment Anesthesia Assessment: Discussed sedation and/or anesthesia options, risks, benefits, and alternatives with patient/parents/legal guardian/POA. Questions invited. The patient/parents/legal guardian/POA seems to understand and agrees to proceedwith anesthesia plan. Reviewed the physical assessment, medical history, allergy history and patient home medications list prior to surgery/procedure/anesthetic and documented any changes. Performed airway and anesthesia risk assessments. Anesthesia Type Anesthesia Type: MAC Anesthesia Focused Assessment* Temperature: 98.5 F Pulse Rate: 72 Blood Pressure: 130/93 Respiratory Rate: 16 Pulse Ox: 100 Airway Assessment Mouth opens: >3 cm Mallampati Score: II Labs Anesthesia Preop lab: CBC WBC 6.7 K/mm3 (4.4-11.0) 07/04/24 11:32 07/04/24 RBC 3.59 M/mm3 (4.2-5.4) L 07/04/24 11:07/04/24 Hgb 8.8 g/dL (12.0-15.0) L 07/04/24 11:07/04/24 Hct 28.3 % (37-47) L 07/04/24 11:07/04/24 Plt Count 360 K/mm3 (150-450) 07/04/24 11:32 07/04/24 CHEMISTRY Potassium 3.4 mmol/L (3.3-5.1) 06/27/24 23:23 06/27/24 Sodium 134 mmol/L (133-145) 06/27/24 23:23 06/27/24 BUN 7 mg/dL (4-19) 06/27/24 23:23 06/27/24 Creatinine 0.58 mg/dL (0.70-1.20) L 06/27/24 23:23 Glucose 102 mg/dL (70-99) H 06/27/24 23:23 06/27/24 TSH 2.58 uIU/mL (0.358-3.74) 09/03/22 11:25 COAG PT 14.0 SECONDS (11.7-14.9) 06/27/24 23:23 HCG, Quant 1 mIU/mL (<9 non-preg) 07/29/24 09:26 07/29/24 Urine Test Negative Negative 06/11/22 09:33 06/11/22 Tst Clinic Negative 05/08/22 15:01 05/08/22 Pre-Assessment Diagnosis/Proposed Procedure Planned Operative Procedure(s): . Dilation and curettage, suction. Anesthesia History Anesthesia History - assistant manager airside operations: Anesthesia History - assistant manager airside operations Hx Hospitalization Yes: 9- ELEVATED LIVER 07/31/24 13:35 ENZYMES Any Problems With Anesthesia No 07/31/24 13:35 Cholinesterase deficiency No 07/31/24 13:35 You/Your Family Experience No 07/31/24 13:35 fever (hyperthermia) with Relationship Recent Exposure to Contagious No 08/01/24 10:05 Disease Does patient have nerve No 07/31/24 13:35 stimulator Patient instructed to have device shut off --Does patient have Pacemaker No 08/01/24 10:05 or ICD? When Was Last Pacemaker Check QUESTION #4 FULL TEXT: You/Your Family Experience fever (hyperthermia) with Anesthesia Last Oral Intake Last Oral intake: Last Oral Intake NPO since 23:00 08/01/24 10:05 Meds taken in AM with sips of Yes 08/01/24 10:05 water? Meds patient instructed to take am of surgery PONV PONV - assistant manager airside operations: PONV - assistant manager airside operations Female Yes 07/31/24 13:35 HX of Motion Sickness No 07/31/24 13:35 HX of N/V After Surgery No 07/31/24 13:35 Non-Smoker Yes 07/31/24 13:35 Duration of Surgery greater No 07/31/24 13:35 than 60 minutes Number of Risk Factors 2 07/31/24 13:35 PONV Score Moderate Risk 07/31/24 13:35 Height & Weight Height & Weight: Anesthesia: Height & Weight Height 5 ft 6 in 08/01/24 10:05 Weight: 113.2 kg 08/01/24 10:05 Body Mass Index (BMI) 40.2 08/01/24 10:05 Respiratory Assessment Respiratory Assessment - assistant manager airside operations: Respiratory Tract Infection Hx - assistant manager airside operations Hx Respiratory Tract Infection No 07/31/24 13:35 STOP Sleep Apnea STOP Sleep Apnea - assistant manager airside operations: STOP Sleep Apnea - assistant manager airside operations Hx Hypertension No 07/31/24 13:35 Hx Sleep Apnea Yes 07/31/24 13:35 CPAP Yes: NON COMPLIANT 07/31/24 13:35 BIPAP No 07/31/24 13:35 Do you snore loudly (louder than talking or can be heard Do you often feel tired/ fatigued/ sleepy during daytime? Has anyone observed you stop breathing during sleep? STOP Results Positive 07/31/24 13:35 QUESTION #5 FULL TEXT : Do you snore loudly (louder than talking or can be heard through closed doors)? Tobacco Use History Tobacco Use History - assistant manager airside operations: Tobacco Use History - assistant manager airside operations Tobacco Use Smoking Status Never smoker 07/31/24 13:35 Hx Tobacco Use No 07/31/24 13:35 Years Smoking Packs Smoked per Day Smoking Cessation Date was within the last 15 years Hx Smoking Cessation Date Hx Smoking Cessation Counseling Hematologic Medial History Hematologic Hx - assistant manager airside operations: Hematologic Medical Hx - clinical orthoptist Hx of Blood Transfusion No 07/31/24 13:35 Hx of Transfusion in last 3 No 07/31/24 13:35 Months Date of Last Transfusion (if within last 3 months) Ever experience any problems No 07/31/24 13:35 with transfusion(s)? Specify any problems Hx of Preganancy in last 3 Yes 07/31/24 13:35 Months Nurse Filling Out Transfusion JZOLLINGE 07/31/24 13:35 & Questions: Date: 07/31/24 07/31/24 13:35 Time: 13:38 07/31/24 13:35 Patient unable to answer at this time (ie. confused, unrespo /Reproduction History /Reproductive History - assistant manager airside operations: /Reproductive Hx- assistant manager airside operations Hx Now No 07/31/24 13:35 Gestational Age (in weeks): EDC: Hx Hx Para Hx Section SAB No 07/31/24 13:35 Active Medications Active Medications: Current Medications Generic Name Dose Route Start Last Admin Trade Name Freq PRN Reason Stop Dose Admin Doxycycline Monohydrate 100 mg 08/01/24 10:26 Doxycycline 100 Mg Capsule PO 08/01/24 10:27 X1 ONE Lactated Ringer's 1,000 mls @ 15 mls/hr 08/01/24 10:00 IV .Q48H TAISHA PFSH Medical History Easy bruising Non-smoker Sleep apnea History of atrial fibrillation Vaginal bleeding during Other obesity Irritable bowel syndrome with diarrhea Depression IUD (intrauterine device) in place Wears glasses Kidney stones Anemia Back pain Injury of back Syncope History of GI bleed Leg cramps History of Holter monitoring History of echocardiogram Hypertension Blood per rectum Palpitations Nausea Calculus of kidney Right flank pain Elevated platelet count Abdominal pain macrosomia depression Gestational HTN Home Medications ?Medication ?Instructions ?Recorded ?Last Taken ?Type calcium citrate 500 mg PO TID 07/31/24 Unkno wn History cholecalciferol (vitamin D3) 50 100 mcg PO DAILY 07/31 Unknown History mcg (2,000 unit) capsule (Vitamin D3) multivitamin (Multiple Vitamins 1 tab PO DAILY 5 Unknown History tablet) Allergy/AdvReac Type Severity Reaction Status Date / Time NSAIDS (Non-Steroidal AdvReac PT UNSURE Verified 07/31/24 13:20 Anti-Inflamma OF REACTION Family History Mother Skin cancer Grandmother Cancer Maternal- Non-Hodgkins lymphoma Grandfather Heart disease Maternal Diabetes Maternal- Type 2 Surgical History Hx of colonoscopy H/O gastric bypass Hx of hernia repair [...] 3-4 times per week duration: 30-45 minutes/day serge/methodist: Mormon seatbelt use: always do you feel safe at home: Yes 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 She delivered the baby at home but has some retained products of conception. [facility] Medical History (Updated 08/01/24 @ 10:[address] Peggy Flynn, ) Easy bruising Non-smoker Sleep apnea History of atrial fibrillation Vaginal bleeding during Other obesity Irritable bowel syndrome with diarrhea Depression IUD (intrauterine device) in place Wears glasses Kidney stones Anemia Back pain Injury of back Syncope History of GI bleed Leg cramps History of Holter monitoring History of echocardiogram Hypertension Blood per rectum Palpitations Nausea Calculus of kidney Right flank pain Elevated platelet count Abdominal pain macrosomia depression Gestational HTN Home Medications ?Medication ?Instructions ?Recorded ?Last Taken ?Type calcium citrate 500 mg PO TID 07/31/24 Unkno wn History cholecalciferol (vitamin D3) 50 100 mcg PO DAILY 07/31 Unknown History mcg (2,000 unit) capsule (Vitamin D3) multivitamin (Multiple Vitamins 1 tab PO DAILY 5 Unknown History tablet) Allergy/AdvReac Type Severity Reaction Status Date / Time NSAIDS (Non-Steroidal AdvReac PT UNSURE Verified 07/31/24 13:20 Anti-Inflamma OF REACTION Family History Mother Skin cancer Grandmother Cancer Maternal- Non-Hodgkins lymphoma Grandfather Heart disease Maternal Diabetes Maternal- Type 2 Surgical History (Updated 07/31/24 @ 13:46 by Tori Bolton) Hx of colonoscopy H/O gastric bypass Hx of hernia repair [...] 3-4 times per week duration: 30-45 minutes/day serge/methodist: Mormon seatbelt use: always do you feel safe at home: Yes 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 Date Name GA/Weeks Outcome Route Bth Weight Infant Gen Labor Lgth Anesthesia Del Locatn Provider FOB Unknown states 7 SAB Unknown elective 201906/02/13 Alvarez 40 live - full term 8#1oz Male epidur al [facility] 04/24/15 Guido 41 live - full term 7#4oz Male epidur al [facility] 05/03/18 Sandra 41 live - full term 6#12oz Female n one [facility]? 03/12/21 [place] 39 live - full term 8#1oz Male no ne [facility] 02/[facility]/24 ectopic 06/29/24 14 weeks spontaneous Delivery Date: 02/28/24 Last Updated by: Yeimy Serna methotrexate ROS Constitutional Constitutional: Denies change in weight, chills, fatigue, fever(s), headache(s),poor appetite or weakness Eyes Eyes: Denies blurry vision, change in vision, seeing flashes or spots in vision ENT HEENT: Denies dizziness, headache(s), loss taste/smell or sore throat Cardiovascular Cardiovascular: Denies chest pain, dizziness, dyspnea, irregular heart rhythm, leg edema, palpitations, rapid heart rate or vomiting Respiratory/Chest Respiratory/Chest: Denies chest tightness, cough, dyspnea or breast pain Gastrointestinal Gastrointestinal: Denies abdominal pain, anorexia, constipation, cramping, diarrhea, hemorrhoids, vomiting or weight changes Genitourinary Genitourinary: Denies dysuria, flank pain, genital lesions, genital pain, urinary frequency or urinary urgency Musculoskeletal Musculoskeletal: Denies back pain, difficulty walking, joint pain, limited rangeof motion, muscle cramps or numbness Integumentary Integumentary: Denies lesions or unusual bruising Neurologic Neurologic: Denies abnormal movements, abnormal speech, dizziness, numbness, seizure-like activity or syncope Psychiatric Psychiatric: Denies anxiety, behavioral changes, change in appetite, change in libido, cognitive impairment, confusion, depression, difficulty concentrating, hallucinations or suicidal thoughts Endocrine Endocrinology: Denies excessive sweating, polydipsia or polyuria Hematologic/Lymphatic Hematologic/Lymphatic: Denies easy bleeding, easy bruising or lymphadenopathy Allergic/Immunologic Allergic/Immunologic: Denies itchy eyes, lip swelling, seasonal rhinorrhea, rhinitis, throat swelling, tongue swelling, eczemia, wheezing or asthma Vital Signs Vital Signs Vital Signs: 08/01/24 10:05 08/01/24 10:05 Temperature 98.5 F Temperature Source Temporal Pulse Rate 72 Respiratory Rate 16 Respiratory Pattern Normal Blood Pressure 130/93 H Blood Pressure Mean 105 Blood Pressure Source Monitor Blood Pressure Position Semi-Fowlers Blood Pressure Location Left Arm Pulse Ox 100 Oxygen Delivery Method Room Air Weight Weight: 249 lb 9.012 oz Body Mass Index (BMI) 40.2 Physical Exam Const alert, oriented x3, no apparent distress and healthy appearing General Appearance: cooperative; Negative for anxious HEENT normocephalic Face and Sinus: normal facial exam Eyes EOMs intact bilaterally and no scleral icterus General Eye: normal appearance of both eyes Neck full ROM and supple Lymph Lymphatic: no lymphadenopathy noted Chest Chest: abnormal inspection of the chest Resp normal respiratory effort Effort and Inspection: able to speak in complete sentences Cardio regular rate external exam normal Extremity normal to inspection, full ROM and no clubbing, cyanosis or edema General Extremity: Negative for calf tenderness or edema Skin Lesions: no lesions Rashes: no rashes Psych mental status grossly normal Labs Labs Labs: Blood Type B POSITIVE Antibody Screen NEGATIVE Hct 28.3 % (37-47) L Hgb 8.8 g/dL (12.0-15.0) L Obstetrics Ultrasound Syphilis Total Ab Nonreactive (Nonreactive) Rubella IgG Antibody REAC (Nonreactive) Hep Bs Antigen Nonreactive (Nonreactive) Hepatitis C Antibody Nonreactive (Nonreactive) Hepatitis C Ab (EIA) 0.2 s/co ratio (0.0-0.9) Chlamydia DNA ([place]) Negative (Negative) N.gonorrhoeae DNA ([place]) Negative (Negative) HIV 1&2 Antibody Nonreactive (Nonreactive) Glucose 1 Hr 50 gm 108 mg/dL (70-140) Group B Strep DNA POSITIVE (Negative) H Rhogam given: No Miscellaneous Test Assessment & Plan (1) Retained products of conception: PLAN: After discussing the patient's diagnosis and treatment plan options, patient wishes to proceed with surgical management. I have discussed with the patient the risks, benefits, and alternatives of the procedure which include butare not limited to risks of anesthesia, bleeding, infection, possible damage to bowel, bladder, or surrounding vasculature which could lead to additional surgery to evaluate any complications. Patient agrees to procedure and wishes to proceed. plan for suction dilation and curettage 08/01/24 1031 <Electronically signed by Pgegy Flynn DO> Cosigner Signature (if applicable): CC: RUMA Lane; Dr. Peggy Flynn DO~ Signed [facility] Work Phone: [phone] [phone] Procedure note [facility] Medical Records Department [address] [place] [address] Operative Report 08/01/24 1134 MR#: [id number] Acct: [id number] Name: ANNE MARIE PETERSON Rep #:[id number] : 1995 28 From: Peggy Flynn DO PCP: Xenia Lane PA-C Status:REG S DC Location: [place] [address] Problems Associated Problem List Diagnoses (1) Complete : (2) Retained products of conception: Multi Select Codes Urinary/Genital Urinary/Genital CPT Codes: 72508 Surg Trtmt missed Ab 1TM Operative Report (Standard) Operative Information Date of Procedure: 08/01/24 Pre-Operative Diagnosis: retained products of conception after a complete miscarriage Post-Operative Diagnosis: retained products of conception after a complete miscarriage Surgery/Procedure Performed: suction dilation and curettage flowers 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: No Type of Anesthesia: MAC/Supplemental RN Documented Start/Stop Times: Operation Date: 08/01/24 11:30 Case Time Into Pre-Op 08/01/24 09:47 Out of Pre-Op 08/01/24 11:07 Anesthesia Start 08/01/24 11:11 Into Room 08/01/24 11:11 Procedure Start 08/01/24 11:23 Procedure End 08/01/24 11:31 Procedure Start Time: 11:23 Procedure Stop Time: 11:31 Select all DRAINS/GRAFTS/IMPLANTS that apply: None Estimated Blood Loss: 30cc Specimen collected: Yes Description of specimen(s) removed: endometrial curetting's/products of conception Description of surgery: Patient was taken to the operating room and placed under MAC local anesthesia. She was prepped and draped in the normal sterile fashion the dorsal lithotomy position. Bladder was drained of clear urine and anterior lip of the cervix wasgrasped and the uterus sounded to 10cm. Cervix was progressively dilated to allow passage of a size 7 suction curette. Progressive passes were made removing the retained products of conception without complication. Sharp curettage confirmed complete removal of the retained products. All instruments were removed from the vagina and excellent hemostasis was notedand the patient was taken to recovery in stable condition. IM methergine was given to help contract the uterus. Surgical Findings: small amount of products of conception removed. Complications Complications: No Admit VTE Documentation VTE Present on Admission: No VTE Mechan Device Prophylaxis: SCD's VTE Pharm Prophylaxis ordered?: No 08/01/24 1139 Cosigner Signature (if applicable): CC: RUMA Lane; Dr. Peggy Flynn DO~ Signed [facility]06-10-2025 Discharge summary [facility] Medical Records Department [address] [place] [address] Instructions for Home/Discharge Instructions 08/01/24 1111 MR#: [id number] Acct: [id number] Name: ANNE MARIE PETERSON Rep #:[id number] : 1995 28 From: Peggy Flynn DO PCP: Xenia Lane PA-C Status:REG S DC Discharge Instructions Diet Discharge Diet: No restrictions DC O2, CPAP, BIPAP needs Home O2 Discharge instructions: No Dressing / Incision Discharge Activity: Return to Normal Activity, May Shower and May Take a Tub Bath (after 1 week) May resume sexual activity in: 1-2 weeks Weight Bearing Status: Weight bearing as tolerated Lifting Restrictions: none Dressing / Incision Call your doctor if you observe: Fever of 101 or Higher, Using more than 1 pad per hour, Shortness of breath and Uncontrolled pain Follow Up Care Please Follow Up With: Peggy Flynn DO When: Call [phone] to schedule appointment. Test Results: Test results from this visit will be discussed in further detail at your follow- up appointment, if applicable. Discharge Plan Admission Primary Reason for Your Visit: suction dilation and curettage Attending Provider: Peggy Flynn Primary Care Provider: Xenia Lane Instructions Print Language: Brazilian Discharge Orders/Prescriptions Prescriptions: New oxycodone 5 mg capsule 5 mg PO Q4H PRN (Reason: pain) 3 Days Qty: 14 0RF Continued calcium citrate 250 mg calcium tablet 500 mg PO TID cholecalciferol (vitamin D3) [Vitamin D3] 50 mcg (2,000 unit) capsule 100 mcg PO DAILY multivitamin [Multiple Vitamins] Tablet 1 tab PO DAILY Referrals / Follow Up: Xenia Lane PA-C [Primary Care Provider] - Disposition Disposition (needs filled in before D/C Order can be placed): Home, Self Care 08/01/24 1114Jennifer Ester Sanchez DO CC: RUMA Lane ~ Signed [facility]06-10-2025 Consult note [facility] Medical Records Department [address] [place] [address] Pre-Anesthesia Evaluation 08/01/24 1031 MR#: [id number] Acct: [id number] Name: ANNE MARIE PETERSON Rep #:[id number] : 1995 28 From: Dash Brewer MD PCP: Xenia Lane PA-C Status:REG S DC Y Race: [facility] Location: [place] [address] ASA Classification* ASA Classification ASA Classification: 3 Assessment & Plan Anesthesia* Anesthesia Assessment Anesthesia Assessment: Discussed sedation and/or anesthesia options, risks, benefits, and alternatives with patient/parents/legal guardian/POA. Questions invited. The patient/parents/legal guardian/POA seems to understand and agrees to proceedwith anesthesia plan. Reviewed the physical assessment, medical history, allergy history and patient home medications list prior to surgery/procedure/anesthetic and documented any changes. Performed airway and anesthesia risk assessments. Anesthesia Type Anesthesia Type: MAC Anesthesia Focused Assessment* Temperature: 98.5 F Pulse Rate: 72 Blood Pressure: 130/93 Respiratory Rate: 16 Pulse Ox: 100 Airway Assessment Mouth opens: >3 cm Mallampati Score: II Labs Anesthesia Preop lab: CBC WBC 6.7 K/mm3 (4.4-11.0) 07/04/24 11:32 07/04/24 RBC 3.59 M/mm3 (4.2-5.4) L 07/04/24 11:32 07/04/24 Hgb 8.8 g/dL (12.0-15.0) L 07/04/24 11:32 07/04/24 Hct 28.3 % (37-47) L 07/04/24 11:32 07/04/24 Plt Count 360 K/mm3 (150-450) 07/04/24 11:32 07/04/24 CHEMISTRY Potassium 3.4 mmol/L (3.3-5.1) 06/27/24 23:23 06/27/24 Sodium 134 mmol/L (133-145) 06/27/24 23:23 06/27/24 BUN 7 mg/dL (4-19) 06/27/24 23:23 06/27/24 Creatinine 0.58 mg/dL (0.70-1.20) L 06/27/24 23:23 Glucose 102 mg/dL (70-99) H 06/27/24 23:23 06/27/24 TSH 2.58 uIU/mL (0.358-3.74) 09/03/22 11:25 COAG PT 14.0 SECONDS (11.7-14.9) 06/27/24 23:23 HCG, Quant 1 mIU/mL (<9 non-preg) 07/29/24 09:26 07/29/24 Urine Test Negative Negative 06/11/22 09:33 06/11/22 Tst Clinic Negative 05/08/22 15:01 05/08/22 Pre-Assessment Diagnosis/Proposed Procedure Planned Operative Procedure(s): . Dilation and curettage, suction. 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 When Was Last Pacemaker Check QUESTION #4 FULL TEXT: You/Your Family Experience fever (hyperthermia) with Anesthesia Last Oral Intake Last Oral intake: Last Oral Intake NPO since 23:00 08/01/24 10:05 Meds taken in AM with sips of Yes 08/01/24 10:05 water? Meds patient instructed to take am of surgery PONV PONV - assistant manager airside operations: PONV - assistant manager airside operations Female Yes 07/31/24 13:35 HX of Motion Sickness No 07/31/24 13:35 HX of N/V After Surgery No 07/31/24 13:35 Non-Smoker Yes 07/31/24 13:35 Duration of Surgery greater No 07/31/24 13:35 than 60 minutes Number of Risk Factors 2 07/31/24 13:35 PONV Score Moderate Risk 07/31/24 13:35 Height & Weight Height & Weight: Anesthesia: Height & Weight Height 5 ft 6 in 08/01/24 10:05 Weight: 113.2 kg 08/01/24 10:05 Body Mass Index (BMI) 40.2 08/01/24 10:05 Respiratory Assessment Respiratory Assessment - assistant manager airside operations: Respiratory Tract Infection Hx - assistant manager airside operations Hx Respiratory Tract Infection No 07/31/24 13:35 STOP Sleep Apnea STOP Sleep Apnea - assistant manager airside operations: STOP Sleep Apnea - assistant manager airside operations Hx Hypertension No 07/31/24 13:35 Hx Sleep Apnea Yes 07/31/24 13:35 CPAP Yes: NON COMPLIANT 07/31/24 13:35 BIPAP No 07/31/24 13:35 Do you snore loudly (louder than talking or can be heard Do you often feel tired/ fatigued/ sleepy during daytime? Has anyone observed you stop breathing during sleep? STOP Results Positive 07/31/24 13:35 QUESTION #5 FULL TEXT : Do you snore loudly (louder than talking or can be heard through closeddoors)? Tobacco Use History Tobacco Use History - assistant manager airside operations: Tobacco Use History - assistant manager airside operations Tobacco Use Smoking Status Never smoker 07/31/24 13:35 Hx Tobacco Use No 07/31/24 13:35 Years Smoking Packs Smoked per Day Smoking Cessation Date was within the last 15 years Hx Smoking Cessation Date Hx Smoking Cessation Counseling Hematologic Medial History Hematologic Hx - assistant manager airside operations: Hematologic Medical Hx - clinical orthoptist Hx of Blood Transfusion No 07/31/24 13:35 Hx of Transfusion in last 3 No 07/31/24 13:35 Months Date of Last Transfusion (if within last 3 months) Ever experience any problems No 07/31/24 13:35 with transfusion(s)? Specify any problems Hx of Preganancy in last 3 Yes 07/31/24 13:35 Months Nurse Filling Out Transfusion JZOLLINGE 07/31/24 13:35 & Questions: Date: 07/31/24 07/31/24 13:35 Time: 13:38 07/31/24 13:35 Patient unable to answer at this time (ie. confused, unrespo /Reproduction History /Reproductive History - assistant manager airside operations: /Reproductive Hx- assistant manager airside operations Hx Now No 07/31/24 13:35 Gestational Age (in weeks): EDC: Hx Hx Para Hx Section SAB No 07/31/24 13:35 Active Medications Active Medications: Current Medications Generic Name Dose Route Start Last Admin Trade Name Freq PRN Reason Stop Dose Admin Doxycycline Monohydrate 100 mg 08/01/24 10:26 Doxycycline 100 Mg Capsule PO 08/01/24 10:27 X1 ONE Lactated Ringer's 1,000 mls @ 15 mls/hr 08/01/24 10:00 IV .Q48H TAISHA PFSH Medical History Easy bruising Non-smoker Sleep apnea History of atrial fibrillation Vaginal bleeding during Other obesity Irritable bowel syndrome with diarrhea Depression IUD (intrauterine device) in place Wears glasses Kidney stones Anemia Back pain Injury of back Syncope History of GI bleed Leg cramps History of Holter monitoring History of echocardiogram Hypertension Blood per rectum Palpitations Nausea Calculus of kidney Right flank pain Elevated platelet count Abdominal pain macrosomia depression Gestational HTN Home Medications ?Medication ?Instructions ?Recorded ?Last Taken ?Type calcium citrate 500 mg PO TID 07/31/24 Unkno wn History cholecalciferol (vitamin D3) 50 100 mcg PO DAILY 07/31 Unknown History mcg (2,000 unit) capsule (Vitamin D3) multivitamin (Multiple Vitamins 1 tab PO DAILY 5 Unknown History tablet) Allergy/AdvReac Type Severity Reaction Status Date / Time NSAIDS (Non-Steroidal AdvReac PT UNSURE Verified 07/31/24 13:20 Anti-Inflamma OF REACTION Family History Mother Skin cancer Grandmother Cancer Maternal- Non-Hodgkins lymphoma Grandfather Heart disease Maternal Diabetes Maternal- Type 2 Surgical History Hx of colonoscopy H/O gastric bypass Hx of hernia repair History of cholecystectomy History of surgery Social History adopted: No household members: children housing: house number of children: 4 current occupational status: employed current occupation: [employer] current occupational exposures/hazards: No pets [...] 3-4 times per week duration: 30-45 minutes/day serge/methodist: Mormon seatbelt use: always do you feel safe at home: Yes 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 08/01/24 1032 > Date _ Dash Brewer MD Cosigner Signature: Date CC: ~ Signed [facility]06-10-2025 History and physical note [facility] Medical Records Department [address] [place] [address] H&P Exam - GROUP WORKER 08/01/24 1028 MR#: [id number] Acct: [id number] Name: ANNE MARIE PETERSON Rep #:[id number] : 1995 28 From: Peggy Flynn DO PCP: Xenia Lane PA-C Status:REG S DC Location: [place] [address] HPI - General HPI Narrative ANNE MARIE PETERSON, is a 28 y/o who presents to [facility] for a suction D&C after a 14 week miscarriage. She delivered the baby at home but has some retained products of conception. [facility] Medical History (Updated 08/01/24 @ 10:[address] Peggy Flynn DO) Easy bruising Non-smoker Sleep apnea History of atrial fibrillation Vaginal bleeding during Other obesity Irritable bowel syndrome with diarrhea Depression IUD (intrauterine device) in place Wears glasses Kidney stones Anemia Back pain Injury of back Syncope History of GI bleed Leg cramps History of Holter monitoring History of echocardiogram Hypertension Blood per rectum Palpitations Nausea Calculus of kidney Right flank pain Elevated platelet count Abdominal pain macrosomia depression Gestational HTN Home Medications ?Medication ?Instructions ?Recorded ?Last Taken ?Type calcium citrate 500 mg PO TID 07/31/24 Unkno wn History cholecalciferol (vitamin D3) 50 100 mcg PO DAILY 07/31 Unknown History mcg (2,000 unit) capsule (Vitamin D3) multivitamin (Multiple Vitamins 1 tab PO DAILY 5 Unknown History tablet) Allergy/AdvReac Type Severity Reaction Status Date / Time NSAIDS (Non-Steroidal AdvReac PT UNSURE Verified 07/31/24 13:20 Anti-Inflamma OF REACTION Family History Mother Skin cancer Grandmother Cancer Maternal- Non-Hodgkins lymphoma Grandfather Heart disease Maternal Diabetes Maternal- Type 2 Surgical History (Updated 07/31/24 @ 13:46 by Tori Bolton) Hx of colonoscopy H/O gastric bypass Hx of hernia repair History of cholecystectomy History of surgery Social History adopted: No household members: children housing: house number of children: 4 current occupational status: employed current occupation: [employer] current occupational exposures/hazards: No pets [...] 3-4 times per week duration: 30-45 minutes/day serge/methodist: Mormon seatbelt use: always do you feel safe at home: Yes 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 Date Name GA/Weeks Outcome Route Bth Weight Infant Gen Labor Lgth Anesthesia Del Locatn Provider FOB Unknown states 7 SAB Unknown elective 2020 06/02/13 [place] 40 live - full term 8#1oz Male epidur al [facility] [place] 04/24/15 [place] 41 live - full term 7#4oz Male epidur al [facility] [place] 05/03/18 [place] 41 live - full term 6#12oz Female n one [facility]? 03/12/21 José 39 live - full term 8#1oz Male no ne [facility] [place] 02/28/24 ectopic 06/29/24 14 weeks spontaneous Delivery Date: 02/28/24 Last Updated by: Yeimy Serna methotrexate ROS Constitutional Constitutional: Denies change in weight, chills, fatigue, fever(s), headache(s),poor appetite or weakness Eyes Eyes: Denies blurry vision, change in vision, seeing flashes or spots in vision ENT HEENT: Denies dizziness, headache(s), loss taste/smell or sore throat Cardiovascular Cardiovascular: Denies chest pain, dizziness, dyspnea, irregular heart rhythm, leg edema, palpitations, rapid heart rate or vomiting Respiratory/Chest Respiratory/Chest: Denies chest tightness, cough, dyspnea or breast pain Gastrointestinal Gastrointestinal: Denies abdominal pain, anorexia, constipation, cramping, diarrhea, hemorrhoids, vomiting or weight changes Genitourinary Genitourinary: Denies dysuria, flank pain, genital lesions, genital pain, urinary frequency or urinary urgency Musculoskeletal Musculoskeletal: Denies back pain, difficulty walking, joint pain, limited rangeof motion, muscle cramps or numbness Integumentary Integumentary: Denies lesions or unusual bruising Neurologic Neurologic: Denies abnormal movements, abnormal speech, dizziness, numbness, seizure-like activity or syncope Psychiatric Psychiatric: Denies anxiety, behavioral changes, change in appetite, change in libido, cognitive impairment, confusion, depression, difficulty concentrating, hallucinations or suicidal thoughts Endocrine Endocrinology: Denies excessive sweating, polydipsia or polyuria Hematologic/Lymphatic Hematologic/Lymphatic: Denies easy bleeding, easy bruising or lymphadenopathy Allergic/Immunologic Allergic/Immunologic: Denies itchy eyes, lip swelling, seasonal rhinorrhea, rhinitis, throat swelling, tongue swelling, eczemia, wheezing or asthma Vital Signs Vital Signs Vital Signs: 08/01/24 10:05 08/01/24 10:05 Temperature 98.5 F Temperature Source Temporal Pulse Rate 72 Respiratory Rate 16 Respiratory Pattern Normal Blood Pressure 130/93 H Blood Pressure Mean 105 Blood Pressure Source Monitor Blood Pressure Position Semi-Fowlers Blood Pressure Location Left Arm Pulse Ox 100 Oxygen Delivery Method Room Air Weight Weight: 249 lb 9.012 oz Body Mass Index (BMI) 40.2 Physical Exam Const alert, oriented x3, no apparent distress and healthy appearing General Appearance: cooperative; Negative for anxious HEENT normocephalic Face and Sinus: normal facial exam Eyes EOMs intact bilaterally and no scleral icterus General Eye: normal appearance of both eyes Neck full ROM and supple Lymph Lymphatic: no lymphadenopathy noted Chest Chest: abnormal inspection of the chest Resp normal respiratory effort Effort and Inspection: able to speak in complete sentences Cardio regular rate external exam normal Extremity normal to inspection, full ROM and no clubbing, cyanosis or edema General Extremity: Negative for calf tenderness or edema Skin Lesions: no lesions Rashes: no rashes Psych mental status grossly normal Labs Labs Labs: Blood Type B POSITIVE Antibody Screen NEGATIVE Hct 28.3 % (37-47) L Hgb 8.8 g/dL (12.0-15.0) L Obstetrics Ultrasound Syphilis Total Ab Nonreactive (Nonreactive) Rubella IgG Antibody REAC (Nonreactive) Hep Bs Antigen Nonreactive (Nonreactive) Hepatitis C Antibody Nonreactive (Nonreactive) Hepatitis C Ab (EIA) 0.2 s/co ratio (0.0-0.9) Chlamydia DNA ([place]) Negative (Negative) N.gonorrhoeae DNA ([place]) Negative (Negative) HIV 1&2 Antibody Nonreactive (Nonreactive) Glucose 1 Hr 50 gm 108 mg/dL (70-140) Group B Strep DNA POSITIVE (Negative) H Rhogam given: No Miscellaneous Test Assessment & Plan (1) Retained products of conception: PLAN: After discussing the patient's diagnosis and treatment plan options, patient wishes to proceed with surgical management. I have discussed with the patient the risks, benefits, and alternatives of the procedure which include butare not limited to risks of anesthesia, bleeding, infection, possible damage to bowel, bladder, or surrounding vasculature which could lead to additional surgery to evaluate any complications. Patient agrees to procedure and wishes to proceed. plan for suction dilation and curettage 08/01/24 1031 Cosigner Signature (if applicable): CC: RUMA Lane; Dr. Peggy Flynn DO~ Signed [facility]06-07-2025 Radiology Diagnostic study note [facility] Imaging Services [address] [place] [address] Transvaginal Non- MR#: [id number] Acct: [id number] Name: ANNE MARIE PETERSON Rep #: [id number] : 1995 F 28 From: Pet er Peer PCP: Xenia Lane PA-C Status: REG C TIFFANI Study:Transvaginal Non- Date of Exam: 07/29/24 Exam# [id number] Ordering Dr: Silviano Hill MD PROCEDURE: TRANSVAGINAL NON- 07/29/2024 REASON FOR EXAM: SPOTTING POST MISCARRIAGE TECHNIQUE: Transabdominal pelvic ultrasound COMPARISON: Ob ultrasound 06/28/2024 FINDINGS: Measurements: Uterus: 9.4 x 7.1 x 5.3 with a volume of mL Endometrial Thickness: 15.3 and heterogeneous Right Ovary: 5.0 x 3.9 x 4.8 with a volume of mL. Left Ovary: 2.7 x 1.3 x 1.7 with a volume of mL. Uterus: Anteverted, anteflexed Endometrium: 15.3 mm and heterogeneous Right ovary: 4.4 cm cyst appears simple. Normal blood flow. Left ovary: Unremarkable. Normal blood flow. Dilated vessels in the left adnexa. Other: Thickened endometrium with blood flow US/Transvaginal Non- IMPRESSION: Thickened endometrial with blood flow. Findings raise suspicion for retained products of conception. Reading [facility] CC: RUMA Lane; Dr. Silviano Daley MD ~ Patient Service Coordinator: Signed [facility]05-07-2025 Radiology Diagnostic study note [facility] Imaging Services [address] [place] [address] Transvaginal w/Preg US MR#: [id number] Acct: [id number] Name: ANNE MARIE PETERSON Rep #: [id number] : 1995 F 28 From: Bria Archuleta MD PCP: Xenia Lane PA-C Status: KRISTOFER NIXON Study:Transvaginal w/Preg US Date of Exam: 06/28/24 Exam# [id number] Ordering Dr: Silviano Hill MD EXAM: TRANSVAGINAL [...] 4. Additional description as above. Reading Location: [id number] CC: RUMA Lane; Dr. Silviano Daley MD ~ Patient Service Coordinator: Signed [facility]04-26-2025 Discharge summary [facility] Medical Records Department [address] [place] [address] Emergency Department Summary 06/17/24 MR#: [id number] Acct: [id number] Name: ANNE MARIE PETERSON Rep #:[id number] : 1995 28 From: Jay Liu MD [...] she went to an urgent care in [place] and wasprescribed Cipro for that which she is taking still. 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 Patient reassured. This essentially rules out ectopic and she does not have symptoms of a heterotopic . She is Rh+ no RhoGAM indicated. She was amenable to urinating for us and checking a urinalysis to see if her urine infection is improving since she still has low back pain and she was put on Cipro whichis not recommended first-line antibiotic. Her urine does look like it is probably improved althoughI do not have access to her prior urinalysis or a culture. She is reassured advised to continue theCipro and follow-up with her GROUP WORKER after the weekend she is comfortable with the plan. We discussed reasons to return including severe bleeding. She is not having no symptoms of anemia at this time. History & Record Review Additional record(s) reviewed:: Prior labs (Blood type B+) Lab Data Labs: Laboratory Results - last 24 hr 06/16/24 23:35 Urine Color Yellow Urine Clarity Clear Urine pH 6.0 Ur Specific Marks 1.025 Urine Protein 30 H Urine Glucose [...] mcg capsule 1 cap PO DAILY PNV no.[id number] 400 mcg-35 mg- 25 mg-5 mg tablet,chewable [...] - As soon as possible Xenia Lane PA-C [Primary Care Provider] - Print Language: Brazilian Disposition Disposition: Home, Self Care What to do if you have Problems For any increased pain, shortness of breath, bleeding, nausea or vomiting, chestpain, or any unexpected problems, contact your Primary Care Provider. Call [facility] ([phone]) or report tothe closest Emergency Room. Call 911 if necessary. 06/17/24 0023 Cosigner Signature (if applicable): CC: RUMA Lane ~ Signed [facility]04-04-2025 Telephone encounter Note* Telephone Encounter - Andreea Webster RD - 05/26/2024 2:17 PM EDT Sent [employer] message to patient with requirements for bariatric patients. Rec'd calories increase by 300/day, protein incr by 20g/day and her current supplementation to stay the same. Pt w/recent low values of vitamin D, zinc, iron, and B12, has orders in place to recheck those labs in July, reminded pt of that. [id number] Miscellaneous Notes* Telephone Encounter - Andreea Webster RD - 05/26/2024 2:17 PM EDT Sent [employer] message to patient with requirements for bariatric patients. Rec'd calories increase by 300/day, protein incr by 20g/day and her current supplementation to stay the same. Pt w/recent low values of vitamin D, zinc, iron, and B12, has orders in place to recheck those labs in July, reminded pt of that. documented in this encounterSACMC Healthcare [id number] Radiology Diagnostic study note [facility] Imaging Services [address] [place], [place] [address] Transvaginal w/Preg US MR#: [id number] Acct: [id number] Name: KRISTENANNE MARIE SIMMS INDIGO Rep #: [id number] : 1995 F 28 From: Artur Ward MD PCP: Xenia Lane PA-C Status: REG C LI Study:Transvaginal w/Preg US Date of Exam: 05/25/24 Exam# [id number] Ordering Dr: Peggy Vogt DO PROCEDURE: TRANSVAGINAL [...] and unremarkable. DIMENSIONS: Parameter Measurement / EGA [place] Rump Length: 2.4 cm/8 weeks and 6 [...] 9 weeks and 0 days.. Reading Location: [place] [address] CC: RUMA Lane; Dr. Peggy Flynn, DO ~ Patient Service Coordinator: Signed [facility]03-25-2025 Note* Addendum Note - LUCIA Mathur CNP - 05/16/2024 11:57 AM EDTAddended by: BALWINDER FAJARDO on: 05/16/2024 11:57 AM Modules accepted: Orders [facility] [id number] Telephone encounter Note* Telephone Encounter - LUCIA Lamb CNP - 05/16/2024 11:57 AM EDT 18 month labs entered per JACINTA [facility] [id number] Miscellaneous Notes* Addendum Note - LUCIA Mathur CNP - 05/16/2024 11:57 AM EDTAddended by: BALWINDER FAJARDO on: 05/16/2024 11:57 AM Modules accepted: Orders * Telephone Encounter - LUCIA Lamb CNP - 05/16/2024 11:57 AM EDT 18 month labs entered per JZ * Telephone Encounter - LUCIA Lamb CNP - 05/12/2024 3:33 PM EDT Order signed * Telephone Encounter - Andreea Webster RD - 05/12/2024 10:27 AM EDT ----- Message from Memo Campbell [...] necessary, they also canceled on my end. * Telephone Encounter - Andreea Webster RD - 05/12/2024 10:14 AM EDT Called pt regarding low B12 (300), iron (47), and D(14). Pt has not been taking B12, and only taking 2000 IU of D3. Pt w/ chronic low iron, to order 325mg ferrous sulfate BID. Rec'd pt take 2000 IU vitamin D3 TID until we recheck her labs in 3 months. Awaiting B1 and zinc result. Sent follow up [employer] message to pt w/ all supplement information. * Telephone Encounter - Andreea Webster RD - 05/12/2024 10:12 AM EDT ----- Message from Memo Campbell MD sent at 05/11/2024 6:11 PM EDT ----- Zinc and vitamin D are still low, please replace documented in this encounterSACMC Healthcare [id number] Telephone encounter Note* Telephone Encounter - LUCIA Lamb CNP - 05/12/2024 3:33 PM EDT Order signed [facility] [id number] Miscellaneous Notes* Telephone Encounter - LUCIA Lamb CNP - 05/12/2024 3:33 PM EDT Order signed * Telephone Encounter - Andreea Webster RD - 05/12/2024 10:27 AM EDT ----- Message from Memo Campbell [...] necessary, they also canceled on my end. * Telephone Encounter - Andreea Webster RD - 05/12/2024 10:14 AM EDT Called pt regarding low B12 (300), iron (47), and D(14). Pt has not been taking B12, and only taking 2000 IU of D3. Pt w/ chronic low iron, to order 325mg ferrous sulfate BID. Rec'd pt take 2000 IU vitamin D3 TID until we recheck her labs in 3 months. Awaiting B1 and zinc result. Sent follow up [employer] message to pt w/ all supplement information. * Telephone Encounter - Andreea Webster RD - 05/12/2024 10:12 AM EDT ----- Message from Memo Campbell MD sent at 05/11/2024 6:11 PM EDT ----- Zinc and vitamin D are still low, please replace documented in this encounterSACMC Healthcare [id number] Telephone encounter Note* Telephone Encounter - Andreea Webster RD - 05/12/2024 10:27 AM EDT ----- Message from Memo Campbell [...] necessary, they also canceled on my end. [facility] [id number] Telephone encounter Note* Telephone Encounter - Andreea Webster RD - 05/12/2024 10:14 AM EDT Called pt regarding low B12 (300), iron (47), and D(14). Pt has not been taking B12, and only taking 2000 IU of D3. Pt w/ chronic low iron, to order 325mg ferrous sulfate BID. Rec'd pt take 2000 IU vitamin D3 TID until we recheck her labs in 3 months. Awaiting B1 and zinc result. Sent follow up [employer] message to pt w/ all supplement information. [facility] [id number] Telephone encounter Note* Telephone Encounter - Andreea Webster RD - 05/12/2024 10:12 AM EDT ----- Message from Memo Campbell MD sent at 05/11/2024 6:11 PM EDT ----- Zinc and vitamin D are still low, please replace [facility] [id number] History of Present illness Narrative* Memo Campbell MD - 05/11/2024 8:10 AM EDT [facility] Patient: Anne [...] 5' 5.25 (1.657 m) Comment: bcc Wt 255lb 3.2 oz (116 kg) BMI 42.14 kg/m [...] times daily. ERGOCALCIFEROL (VITAMIN D2) 1.25 MG (29709 UT) CAPSULE Take 1 capsule (1.25 mg) by mouth 1 (one) time per week. Take one capsule by mouth weekly for 8 weeks. FLECAINIDE (TAMBOCOR) 50 MG TABLET Take 3 tablets (150 mg) by mouth Once as needed (Take 3 pills asneeded for episodes of atrial fibrillation). MAGNESIUM 30 MG TABLET Take 30 mg by mouth 2 times daily. METOPROLOL TARTRATE (LOPRESSOR) 25 MG TABLET Take 1 tablet (25 mg) by mouth 2 times daily. MULTIPLE VITAMINS-MINERALS (CENTRUM ADULTS) TABLET Take 2 tablets by mouth daily. NYSTATIN (MYCOSTATIN) 166391 UNIT/GM POWDER Apply topically 2 times daily. RESPIRATORY THERAPY SUPPLIES (CARETOUCH 2 CPAP HOSE DRUG ABUSE TREATMENT SPECIALIST) MISC CPAP 10 cm h20 THIAMINE (VITAMIN [...] (25 mg) by mouth 2 times daily. (Patienttaking differently: Take 25 mg by mouth 2 times daily.) 60 tablet 11 Multiple Vitamins-Minerals (Centrum Adults) tablet Take 2 tablets by mouth daily. 60 tablet 11 nystatin (Mycostatin) 099489 UNIT/GM powder Apply topically 2 times daily. Respiratory Therapy Supplies (CareTouch 2 CPAP Hose Milk Receiver Tank Truck) misc CPAP 10 cm h20 thiamine (Vitamin B-1) 50 MG tablet Take 1 tablet (50 mg) by mouth daily. Take 1 tablet by mouth daily. 30 tablet 11 VITAMIN D, CHOLECALCIFEROL, PO Take 4,000 Int'l Units by mouth daily. zinc 50 MG tablet Take 1 tablet (50 mg) by mouth daily. 30 tablet 3 ergocalciferol (Vitamin D2) 1.25 MG (58717 UT) capsule Take 1 capsule (1.25 mg) [...] reviewed by myself. A full chart review wasperformed. Patient Care Team: Xenia Lane as PCP - General (Family Medicine) Silviano Daley (Obstetrics and Gynecology) Memo Campbell MD as Surgeon (General Surgery) Zully Anton RN as Registered Nurse (Bariatrics) Eliazar Abreu MD as Consulting Physician (Internal Medicine Cardiovascular Disease) * Andreea Webster RD - 05/11/2024 8:10 AM EDT [facility] > 12 MONTH POST-OPERATIVE DIETITIAN VISIT Date: [...] by: Andreea Webster RD documented in this [facility]03-19-2025 Radiology Diagnostic study note [facility] Imaging Services [address] [place], [place] [address] Transvaginal w/Preg MR#: [id number] Acct: [id number] Name: ANNE MARIE PETERSON Rep #: [id number] : 1995 F 28 From: Artur Ward MD PCP: Xenia Lane PA-C Status: REG C TIFFANI Study:Transvaginal w/Preg US Date of Exam: 05/09/24 Exam# [id number] Ordering Dr: Peggy Vogt DO PROCEDURE: TRANSVAGINAL [...] and unremarkable. DIMENSIONS: Parameter Measurement / EGA [place] Rump Length: 7.3 mm/6 weeks and 5 [...] 6 weeks and 6 days. Reading Location: [place] [address] CC: RUMA Lane; DO Brian Nathan Patient Service Coordinator: Signed [facility]03-11-2025 Radiology Diagnostic study note [facility] Imaging Services [address] [place] [address] [id number] Transvaginal w/Preg US MR#: [id number] Acct: [id number] Name: ANNE MARIE PETERSON Rep #: [id number] : 1995 F 28 From: Artur Ward MD PCP: Xenia Lane PA-C Status: REG C TIFFANI Study:Transvaginal w/Preg US Date of Exam: 05/01/24 Exam# [id number] Ordering Dr: Lidya Booker COMPETENCY EVALUATED NURSE AIDE COMPETENCY EVALUATED NURSE AIDE-C PROCEDURE: TRANSVAGINAL W/PREG US REASON FOR EXAM: VIABILITY COMPARISON: None. FINDINGS: Comments: LMP: March 21, 2024. Number of Gestational Sacs: 1 Gestational Sac Shape: Normal Yolk Sac: Present and unremarkable. Placenta: Presently not well-visualized Amniotic Fluid Volume: Subjectively normal for gestational age. Uterine Abnormalities: Maternal uterus is unremarkable. Ovaries / Adnexa: Both maternal ovaries are visualized and unremarkable. DIMENSIONS: Parameter Measurement / EGA [place] Rump Length: Not visualized at this time. [...] at this time. Follow-up recommended. Reading Location: [facility] CC: JENNY Booker; RUMA Lane ~ Patient Service Coordinator: Signed [facility]02-28-2025 Evaluation note* Diagnosis Onset Date Resolution Status Admit Date Elevated liver enzymes acute Fe bruary 2024 [...] 2024 8:53am History of Sandra-en-Y gastric bypass May 29, 2024 8:53am Liver lesion acute [...] 19, 2024 8:41am Prediabetes acute June 19, 8:41am acute June 19 8:41am Recurrent loss [...] 2024 1 0:56am Complete acute June 10:56am Complete acute August 012024 9:32am Retained products of conception acute August 01, 2024 9:32am [facility] Work Phone: 1(210) 868-315301-20-2025 Evaluation note* Diagnosis Onset Date Resolution Status Admit Date Ectopic inactive March 13, 2024 1:11pm Elevated liver enzymes acute Fe bruary 2024 9:06am BMI 60.0-69.9, adult acute Apri 2024 8:53am Constipation acute May 29, 2 025 8:53am Daytime hypersomnia acute May 29, 2024 [...] 29, 2024 8:53am Liver lesion acute May 29, 2 025 8:53am Obesity affecting acute May 29, [...] 29, 2024 8:53am Hypertension chronic May 29, 2 025 8:53am Rectal bleeding chronic May [...] 2024 8:41am Prediabetes acute June 19, 2 025 8:41am acute June 19 8:41am Recurrent [...] 2024 2:28pm Abdominal pain chronic June 27, 025 2:28pm Binge-eating disorder, moderate chronic June 27, 2024 2: 28pm Hypertension chronic June 27 2:28pm Rectal bleeding chronic June 27, 2024 2:28pm [facility] Work Phone: 1(807) 677-182201-20-2025 Evaluation note* Diagnosis Onset Date Resolution Status Admit Date Ectopic inactive March 13, 2024 1:11pm Elevated liver enzymes acute Fe bruary 2024 9:06am BMI 60.0-69.9, adult acute Apri 2024 8:53am Constipation acute May 29, 2 025 8:53am Daytime hypersomnia acute May 29, 2024 [...] 29, 2024 8:53am Liver lesion acute May 29, 2 025 8:53am Obesity affecting acute May 29, [...] 29, 2024 8:53am Hypertension chronic May 29, 025 8:53am Rectal bleeding chronic May 8:53am [...] 19, 2024 8:41am Prediabetes acute June 19, 025 8:41am [...] 2024 1 0:56am Complete acute June 10:56am [facility] Work Phone: 1(930) 550-474001-09-2025 Evaluation note* Diagnosis Onset Date Resolution Status Admit Date Incomplete acute 2024 8:55am Recurrent loss acute March 02, 2024 8:55am Ectopic inactive March 13, 2024 1:11pm Elevated liver enzymes acute Fe bruary 2024 9:06am [facility] Work Phone: 1(572) 100-767701-09-2025 Evaluation note* Diagnosis Onset Date Resolution Status Admit Date Recurrent loss acute March 02, 2024 8:55am Incomplete resolved 2024 8:55am Ectopic inactive March 13, 2024 1:11pm Elevated liver enzymes acute Fe bruary 2024 9:06am [facility] Work Phone: 1(773) 401-655301-09-2025 Evaluation note* Diagnosis Onset Date Resolution Status Admit Date Recurrent loss acute March 02, 2024 8:55am Incomplete resolved 2024 8:55am Ectopic inactive March 13, 2024 1:11pm Elevated liver enzymes acute Fe bruary 2024 9:06am BMI 60.0-69.9, adult acute Apri 2024 8:53am Constipation acute May 29 025 8:53am Daytime hypersomnia acute May 29, 2024 [...] 29 8:53am Rectal bleeding chronic May 8:53am [facility] Work Phone: 1(832) 735-120501-09-2025 Evaluation note* Diagnosis Onset Date Resolution Status [...] 2024 8:53am History of Sandra-en-Y gastric bypass May 29, 2024 8:53am Liver lesion acute [...] 19, 2024 8:41am Prediabetes acute June 19, 025 8:41am [...] Rectal bleeding chronic June 27, 2024 2:28pm [facility] Work Phone: 1(832) 193-551312-31-2024 NoteDischarge Instructions Discharge Summary [address] [address] [id number] 02/20/2024 Patient: ANNE MARIE PETERSON Sex: Female : 1995 Age: 28y Thank you for visiting [facility]. You have been evaluated today by Anup Larios D.O. for the following condition(s): Patient Signature Facility Integrated Circuits Inspector Date/Time General Instructions with [address] [address] [id number] 02/20/2024 Patient: ANNE MARIE PETERSON Sex: Female : 1995 Age: 28y Thank you for visiting [facility]. You have been evaluated today by Anup Larios D.O. for the following condition(s): 1 of 6 Discharge Instructions Discharge Summary [address] [address] [id number] 02/20/2024 Patient: ANNE MARIE PETERSON Sex: Female : 1995 Age: 28y Thank you for visiting [facility]. You have been evaluated today by Jaswinder Sena D.O. for the following condition(s): Principal Diagnosis Acute generalized abdominal pain. Acute abdominal pain of unknown cause. INSTRUCTIONS Do not work today, tomorrow, for one day. Follow-up with: SUZANNA Miller, [facility], Adult [facility] Pediatric, Family Care, , [address] [place] [id number]. Follow up in two days. (return if increasing pain problems or concerns. not sure what is causing her abdominal pain. This could be a virus or some other etiology. Return back to the emergency department). You have been given the following additional information: Unknown Causes of Abdominal Pain (Female) Patient Signature 2 of 6 Discharge Instructions Facility Integrated Circuits Inspector Date/Time General Instructions with [address] [address] [id number] 02/20/2024 Patient: ANNE MARIE PETERSON Sex: Female : 1995 Age: 28y Thank you for visiting [facility]. You have been evaluated today by Jaswinder Sena D.O. for the following condition(s): Principal Diagnosis Acute generalized abdominal pain. Acute abdominal pain of unknown cause. INSTRUCTIONS Do not work today, tomorrow, for one day. Follow-up with: SUZANNA Miller, [facility], [facility] Family [facility], , [address] [id number]. Follow up in two days. (return if [...] Caffeine sometimes makes the (more content not included)...[facility]12-20-2024 Evaluation + Plan note* Assessment & Plan Note - LUCIA Coreas CNP - 02/11/2024 9:59 AM ESTAssociated Problem(s): MOE on CPAP Compliant nightly. [id number] Miscellaneous Notes* Assessment & Plan Note - [...] with control ofher afib. documented in this encounterSAC[facility] [id number] Evaluation + Plan note* Assessment & Plan [...] No OAC due to low stroke risk. [id number] Evaluation + Plan note* Assessment & Plan Note - LUCIA Coreas CNP - 02/11/2024 9:58 AM ESTAssociated Problem(s): Hypertension Well controlled. Stressed importance of good blood pressure control which will help with control ofher afib. [id number] History of Present illness Narrative* LUCIA Coreas CNP - 02/11/2024 9:30 AM EST Images from the original note were not included. [facility] - [address] [address] Dept: [phone] Dept Visit type: Established : 1995 Reason [...] 1 year (around 02/10/2025) for Dr. [place]. Radha Anne Marie Peterson is a 28 y.o. [...] 1 tablet by mouth daily. nystatin (Mycostatin) 091275 UNIT/GM powder Apply topically 2 times daily. Respiratory Therapy Supplies (CareTouch 2 CPAP Hose Milk Receiver Tank Truck) misc CPAP 10 cm h20 thiamine (Vitamin [...] 1999 Dr. Memo Duke / Ernst Chavez [facility] - inguinal hernia LAP GASTRIC BYPASS/SANDRA-EN-Y (HISTORICAL) 05/10/2023 LRYGB - Dr. Shannan CROCKETT,CHOLECYSTECTOMY (HISTORICAL) 2009 Dr. Memo Duke / Ernst Chavez [facility] UPPER GASTROINTESTINAL ENDOSCOPY Family History Problem [...] abnormalities. LUCIA Reinoso CNP documented in this [facility]09-23-2024 History of Present illness Narrative* Miley Moise [...] that she follows with- Dr. Malone at [facility] in [place]. States he ordered additional blood work and [...] 16 Ht 5' 5.25 (1.657 m) Comment: [facility] Wt286 lb 6.4 oz (130 kg) Comment: [facility] LMP 10/28/2023 (Exact Date) BMI 47.29 [...] Req. Please [place]: [place] [id number] - [phone] And if not done at a [facility], please send to: [address], [address] Patient Name: Anne Marie Peterson - 1995 Order Created by : Peggy Friedman MA Standing Status: Future Number of Occurrences: 1 Standing Expiration Date: 11/07/2024 Folate These orders are set for an approximate date - they can be drawn up to 3 months prior to the Expected Date on this Req. Please send results to: [place] [phone] - [phone] And if not done at a [facility], please send to: [address], [address] Patient Name: Anne Marie Peterson - 1995 Order Created by : Peggy Friedman MA Standing Status: Future Number of Occurrences: 1 Standing Expiration Date: 11/07/2024 Iron These orders are set for an approximate date - they can be drawn up to 3 months prior to the Expected Date on this Req. Please send results to: [place] [address] - [phone] And if not done at a [facility], please send to: [address], [address] Patient Name: Anne Marie Tran 1995 Order Created by : Peggy Friedman MA Standing Status: Future Number of Occurrences: 1 Standing Expiration Date: 11/07/2024 Ferritin These orders are set for an approximate date - they can be drawn up to 3 months prior to the Expected Date on this Req. Please send results to: X[place] [address] [place] [phone] - [phone] And if not done at a [facility], please send to: [address], [address] Patient Name: Anne Marie Tran 1995 Order Created by : Peggy Friedman MA Standing Status: Future Number of Occurrences: 1 Standing Expiration Date: 11/07/2024 Magnesium These orders are set for an approximate date - they can be drawn up to 3 months prior to the Expected Date on this Req. Please send results to: [place] [address] [place] [phone] - [phone] And if not done at a [facility], please send to: [address], [address] Patient Name: Anne Marie Tran 1995 Order Created by : Peggy Friedman MA Standing Status: Future Number of Occurrences: 1 Standing Expiration Date: 11/07/2024 Vitamin D Deficiency Screening (Vit D 25) These orders are set for an approximate date - they can be drawn up to 3 months prior to the Expected Date on this Req. Please send results to: [place] [address] [place] [phone] - [phone] And if not done at a [facility], please send to: [address], [address] Patient Name: Anne Marie Tran 1995 Order Created by : Peggy Friedman MA Standing Status: Future Number of Occurrences: 1 Standing Expiration Date: 11/07/2024 Vitamin B12 These orders are set for an approximate date - they can be drawn up to 3 months prior to the Expected Date on this Req. Please send results to: [place] [address] [place] [address] - [phone] And if not done at a [facility], please send to: [address] [address] Patient Name: Anne Marie Tran 1995 Order Created by : Peggy Friedman MA Standing Status: Future Number of Occurrences: 1 Standing Expiration Date: 11/07/2024 Vitamin B1, whole blood ([facility]) These orders are set for an approximate date - they can be drawn up to 3 months prior to the Expected Date on this Req. Please send results to: [place] [address] [place] [address] - [phone] And if not done at a [facility], please send to: [address] [place] [address] Patient Name: Anne Marie Tran 1995 Order Created by : Peggy Friedman MA Standing Status: Future Number of Occurrences: 1 Standing Expiration Date: 11/07/2024 Lipid panel These orders are set for an approximate date - they can be drawn up to 3 months prior to the Expected Date on this Req. Please send results to: Xenia [facility] [place] [place] [address] - [phone] And if not done at a [facility], please send to: [address] [address] Patient Name: Anne Marie Tran 1995 Order Created by : Peggy Friedman MA Standing Status: Future Number of Occurrences: 1 Standing Expiration Date: 11/07/2024 Comprehensive metabolic panel These orders are set for an approximate date - they can be drawn up to 3 months prior to the Expected Date on this Req. Please send results to: Xenia [facility] [place] [address] - [phone] And if not done at a [facility], please send to: [address], [address] Patient Name: Anne Marie Peterson - 1995 Order Created by : Peggy Friedman MA Standing Status: Future Number of Occurrences: 1 Standing Expiration Date: 11/07/2024 CBC These orders are set for an approximate date - they can be drawn up to 3 months prior to the Expected Date on this Req. Please send results to: [address] [facility] [place] [address] - [phone] And if not done at a [facility], please send to: [address], [address] Patient Name: Anne Marie Tran 1995 Order Created by : Peggy Friedman MA Standing Status: Future Number of Occurrences: 1 Standing Expiration Date: 11/07/2024 Zinc (Sendout) These orders are set for an approximate date - they can be drawn up to 3 months prior to the Expected Date on this Req. Please send results to: [address] [facility] [place] [address] - [phone] And if not done at a [facility], please send to: [address], [address] Patient Name: Anne Marie Peterson - 1995 Order Created by : Miley Moise PA-C Standing Status: Future Number of Occurrences: 1 Standing Expiration Date: 11/14/2024 Folate These orders are set for an approximate date - they can be drawn up to 3 months prior to the Expected Date on this Req. Please send results to: [place] [address] [place] [phone] - [phone] And if not done at a [facility], please send to: [address], [address] Patient Name: Anne Marie Tran 1995 Order Created by : Miley Moise PA-C Standing Status: Future Number of Occurrences: 1 Standing Expiration Date: 11/14/2024 Iron These orders are set for an approximate date - they can be drawn up to 3 months prior to the Expected Date on this Req. Please send results to: Xenia [facility] [place], [facility] [place] [phone] - [phone] And if not done at a [facility], please send to: [address], [address] Patient Name: Anne Marie Tran 1995 Order Created by : Miley Moise PA-C Standing Status: Future Number of Occurrences: 1 Standing Expiration Date: 11/14/2024 Ferritin These orders are set for an approximate date - they can be drawn up to 3 months prior to the Expected Date on this Req. Please send results to: [place] [address] [place] [phone] - [phone] And if not done at a [facility], please send to: [address], [address] Patient Name: Anne Marie Tran 1995 Order Created by : Miley Moise PA-C Standing Status: Future Number of Occurrences: 1 Standing Expiration Date: 11/14/2024 Magnesium These orders are set for an approximate date - they can be drawn up to 3 months prior to the Expected Date on this Req. Please send results to: X[place] [address] [place] [phone] - [phone] And if not done at a [facility], please send to: [address], [address] Patient Name: Anne Marie Peterson - 1995 Order Created by : Miley Moise PA-C Standing Status: Future Number of Occurrences: 1 Standing Expiration Date: 11/14/2024 Vitamin D Deficiency Screening (Vit D 25) These orders are set for an approximate date - they can be drawn up to 3 months prior to the Expected Date on this Req. Please send results to: [address] [place] [phone] - [phone] And if not done at a [facility], please send to: [address], [address] Patient Name: Anne Marie Tran 1995 Order Created by : Miley Moise PA-C Standing Status: Future Number of Occurrences: 1 Standing Expiration Date: 11/14/2024 Vitamin B12 These orders are set for an approximate date - they can be drawn up to 3 months prior to the Expected Date on this Req. Please send results to: [address] [place] [phone] - [phone] And if not done at a [facility], please send to: [address], [address] Patient Name: Anne Marie Tran 1995 Order Created by : Miley Moise PA-C Standing Status: Future Number of Occurrences: 1 Standing Expiration Date: 11/14/2024 Vitamin B1, whole blood ([facility]) These orders are set for an approximate date - they can be drawn up to 3 months prior to the Expected Date on this Req. Please send results to: [place] [address] [place] [phone] - [phone] And if not done at a [facility], please send to: [address], [address] Patient Name: Anne Marie Peterson - 1995 Order Created by : Miley Moise PA-C Standing Status: Future Number of Occurrences: 1 Standing Expiration Date: 11/14/2024 Lipid panel These orders are set for an approximate date - they can be drawn up to 3 months prior to the Expected Date on this Req. Please send results to: [address] [place] [phone] - [phone] And if not done at a [facility], please send to: [address], [address] Patient Name: Anne Marie Tran 1995 Order Created by : Miley Moise PA-C Standing Status: Future Number of Occurrences: 1 Standing Expiration Date: 11/14/2024 Comprehensive metabolic panel These orders are set for an approximate date - they can be drawn up to 3 months prior to the Expected Date on this Req. Please send results to: [address] [place] [phone] - [phone] And if not done at a [facility], please send to: [address], [address] Patient Name: Anne Marie Tran 1995 Order Created by : Miley Moise PA-C Standing Status: Future Number of Occurrences: 1 Standing Expiration Date: 11/14/2024 CBC These orders are set for an approximate date - they can be drawn up to 3 months prior to the Expected Date on this Req. Please send results to: [place] [address] [place] [address] - [phone] And if not done at a [facility], please send to: [facility] - [address] [place] [address], [address] - [place], [address] Patient Name: Anne Marie Peterson - 1995 [...] times daily. 60 tablet 11 nystatin (Mycostatin) 707415 UNIT/GM powder Apply topically 2 times daily. omeprazole (PriLOSEC) [address] capsule Take 1 capsule (20 mg) by mouth daily. Do not crush or chew.90 capsule 1 Respiratory Therapy Supplies (CareTouch 2 CPAP Hose Milk Receiver Tank Truck) misc CPAP 10 cm h20 thiamine (Vitamin [...] 1 tablet by mouth daily. NYSTATIN (MYCOSTATIN) 572848 UNIT/GM POWDER Apply topically 2 times daily. OMEPRAZOLE (PRILOSEC) [address] CAPSULE Take 1 capsule (20 mg) by mouth daily. Do not crush or chew. RESPIRATORY THERAPY SUPPLIES (CARETOUCH 2 CPAP HOSE DRUG ABUSE TREATMENT SPECIALIST) MISC CPAP 10 cm h20 THIAMINE (VITAMIN [...] Frank RD - 11/15/2023 12:30 PM EDT [facility] > 6 MONTH POST-OPERATIVE DIETITIAN VISIT Date: 11/15/23 Patient's weight decreased by: 116.6 lbs Patient does consume 5-6 small meals daily Patient s portions are adequate for current diet: -1 cup Protein requirements discussed- currently consuming estimate about 50-60 grams protein daily. Current protein sources: Indian yogurt. Cheese, meat sticks, chicken, lean beef [...] by: Kimberley Frank RD documented in this [facility]09-23-2024 History of Present illness Narrative* Miley Moise [...] that she follows with- Dr. Malone at [facility] in [place]. States he ordered additional blood work and [...] 16 Ht 5' 5.25 (1.657 m) Comment: [facility] Wt286 lb 6.4 oz (130 kg) Comment: [facility] LMP 10/28/2023 (Exact Date) BMI 47.29 [...] Req. Please [place]: [place] [address] - [phone] And if not done at a [facility], please send to: [facility] [place] - [address] [place] [address], [address] [facility], [address] Patient Name: Anne Marie Peterson - 1995 Order Created by : Peggy Friedman MA Standing Status: Future Number of Occurrences: 1 Standing Expiration Date: 11/07/2024 Folate These orders are set for an approximate date - they can be drawn up to 3 months prior to the Expected Date on this Req. Please send results to: [place] [address] - [phone] And if not done at a [facility], please send to: [address], [address] Patient Name: Anne Marie Peterson - 1995 Order Created by : Peggy Friedman MA Standing Status: Future Number of Occurrences: 1 Standing Expiration Date: 11/07/2024 Iron These orders are set for an approximate date - they can be drawn up to 3 months prior to the Expected Date on this Req. Please send results to: Xenia [facility] [place] [place] [address] - [phone] And if not done at a [facility], please send to: [address], [facility] Patient Name: Anne Marie Peterson - 1995 Order Created by : Peggy Friedman MA Standing Status: Future Number of Occurrences: 1 Standing Expiration Date: 11/07/2024 Ferritin These orders are set for an approximate date - they can be drawn up to 3 months prior to the Expected Date on this Req. Please send results to: X[facility] [place] [place] [address] - [phone] And if not done at a [facility], please send to: [address], [address] Patient Name: Anne Marie Tran 1995 Order Created by : Peggy Friedman MA Standing Status: Future Number of Occurrences: 1 Standing Expiration Date: 11/07/2024 Magnesium These orders are set for an approximate date - they can be drawn up to 3 months prior to the Expected Date on this Req. Please send results to: X[facility] [place] [place] [address] - [phone] And if not done at a [facility], please send to: [address], [address] Patient Name: Anne Marie Peterson - 1995 Order Created by : Peggy Friedman MA Standing Status: Future Number of Occurrences: 1 Standing Expiration Date: 11/07/2024 Vitamin D Deficiency Screening (Vit D 25) These orders are set for an approximate date - they can be drawn up to 3 months prior to the Expected Date on this Req. Please send results to: [place] [address] [place] [address] - [phone] And if not done at a [facility], please send to: [address], [facility] Patient Name: Anne Marie Peterson 1995 Order Created by : Peggy Firedman MA Standing Status: Future Number of Occurrences: 1 Standing Expiration Date: 11/07/2024 Vitamin B12 These orders are set for an approximate date - they can be drawn up to 3 months prior to the Expected Date on this Req. Please send results to: [place] [address] [place] [phone] - [phone] And if not done at a [facility], please send to: [address], [address] Patient Name: Anne Marie Tran 1995 Order Created by : Peggy Friedman MA Standing Status: Future Number of Occurrences: 1 Standing Expiration Date: 11/07/2024 Vitamin B1, whole blood ([facility]) These orders are set for an approximate date - they can be drawn up to 3 months prior to the Expected Date on this Req. Please send results to: [place] [address] [place] [phone] - [phone] And if not done at a [facility], please send to: [address], [address] Patient Name: Anne Marie Tran 1995 Order Created by : Peggy Friedman MA Standing Status: Future Number of Occurrences: 1 Standing Expiration Date: 11/07/2024 Lipid panel These orders are set for an approximate date - they can be drawn up to 3 months prior to the Expected Date on this Req. Please send results to: [address] [facility] [place] [address] - [phone] And if not done at a [facility], please send to: [address], [address] Patient Name: Anne Marie Tran 1995 Order Created by : Peggy Friedman MA Standing Status: Future Number of Occurrences: 1 Standing Expiration Date: 11/07/2024 Comprehensive metabolic panel These orders are set for an approximate date - they can be drawn up to 3 months prior to the Expected Date on this Req. Please send results to: [address] [facility] [place] [phone] - [phone] And if not done at a [facility], please send to: [address], [address] Patient Name: Anne Marie Tran 1995 Order Created by : Peggy Friedman MA Standing Status: Future Number of Occurrences: 1 Standing Expiration Date: 11/07/2024 CBC These orders are set for an approximate date - they can be drawn up to 3 months prior to the Expected Date on this Req. Please send results to: Xenia [facility] [place] [phone] - [phone] And if not done at a [facility], please send to: [address], [address] Patient Name: Anne Marie Peterson - 1995 Order Created by : Peggy Friedman MA Standing Status: Future Number of Occurrences: 1 Standing Expiration Date: 11/07/2024 Zinc (Sendout) These orders are set for an approximate date - they can be drawn up to 3 months prior to the Expected Date on this Req. Please send results to: Xenia [facility] [place] [address] - [phone] And if not done at a [facility], please send to: [address], [address] Patient Name: Anne Marie Tran 1995 Order Created by : Miley Moise PA-C Standing Status: Future Number of Occurrences: 1 Standing Expiration Date: 11/14/2024 Folate These orders are set for an approximate date - they can be drawn up to 3 months prior to the Expected Date on this Req. Please send results to: [address] [facility] [place] [address] - [phone] And if not done at a [facility], please send to: [address], [address] Patient Name: Anne Marie Tran 1995 Order Created by : Miley Moise PA-C Standing Status: Future Number of Occurrences: 1 Standing Expiration Date: 11/14/2024 Iron These orders are set for an approximate date - they can be drawn up to 3 months prior to the Expected Date on this Req. Please send results to: Xenia [facility] [place] [phone] - [phone] And if not done at a [facility], please send to: [address], [address] Patient Name: Anne Marie Peterson - 1995 Order Created by : Miley Moise PA-C Standing Status: Future Number of Occurrences: 1 Standing Expiration Date: 11/14/2024 Ferritin These orders are set for an approximate date - they can be drawn up to 3 months prior to the Expected Date on this Req. Please send results to: X[place] [address] [place] [address] - [phone] And if not done at a [facility], please send to: [address], [address] Patient Name: Anne Marie Tran 1995 Order Created by : Miley Moise PA-C Standing Status: Future Number of Occurrences: 1 Standing Expiration Date: 11/14/2024 Magnesium These orders are set for an approximate date - they can be drawn up to 3 months prior to the Expected Date on this Req. Please send results to: [facility] [address] [place] [address] - [phone] And if not done at a [facility] Facility, please send to: [address], [address] Patient Name: Anne Marie Tran 1995 Order Created by : Miley Moise PA-C Standing Status: Future Number of Occurrences: 1 Standing Expiration Date: 11/14/2024 Vitamin D Deficiency Screening (Vit D 25) These orders are set for an approximate date - they can be drawn up to 3 months prior to the Expected Date on this Req. Please send results to: [facility] [address] [place] [address] - [phone] And if not done at a [facility], please send to: [address], [address] Patient Name: Anne Marie Peterson - 1995 Order Created by : Miley oMise PA-C Standing Status: Future Number of Occurrences: 1 Standing Expiration Date: 11/14/2024 Vitamin B12 These orders are set for an approximate date - they can be drawn up to 3 months prior to the Expected Date on this Req. Please send results to: [facility] [address] [place] [address] - [phone] And if not done at a [facility], please send to: [address], [address] Patient Name: Anne Marie Tran 1995 Order Created by : Miley Moise PA-C Standing Status: Future Number of Occurrences: 1 Standing Expiration Date: 11/14/2024 Vitamin B1, whole blood ([facility]) These orders are set for an approximate date - they can be drawn up to 3 months prior to the Expected Date on this Req. Please send results to: [address] [place] [address] - [phone] And if not done at a [facility], please send to: [address], [address] Patient Name: Anne Marie Tran 1995 Order Created by : Miley Moise PA-C Standing Status: Future Number of Occurrences: 1 Standing Expiration Date: 11/14/2024 Lipid panel These orders are set for an approximate date - they can be drawn up to 3 months prior to the Expected Date on this Req. Please send results to: [facility] [address] [place] [address] - [phone] And if not done at a [facility], please send to: [address], [address] Patient Name: Anne Marie Tran 1995 Order Created by : Miley Moise PA-C Standing Status: Future Number of Occurrences: 1 Standing Expiration Date: 11/14/2024 Comprehensive metabolic panel These orders are set for an approximate date - they can be drawn up to 3 months prior to the Expected Date on this Req. Please send results to: [address] [place] [address] - [phone] And if not done at a [facility], please send to: [address] [address] Patient Name: Anne Marie Tran 1995 Order Created by : Miley Moise PA-C Standing Status: Future Number of Occurrences: 1 Standing Expiration Date: 11/14/2024 CBC These orders are set for an approximate date - they can be drawn up to 3 months prior to the Expected Date on this Req. Please send results to: [address] [place] [address] - [phone] And if not done at a [facility], please send to: [address], [address] Patient Name: Anne Marie Tran 1995 Order [...] times daily. 60 tablet 11 nystatin (Mycostatin) 536895 UNIT/GM powder Apply topically 2 times daily. omeprazole (PriLOSEC) [address] capsule Take 1 capsule (20 mg) by mouth daily. Do not crush or chew.90 capsule 1 Respiratory Therapy Supplies (CareTouch 2 CPAP Hose Milk Receiver Tank Truck) misc CPAP 10 cm h20 thiamine (Vitamin [...] 1 tablet by mouth daily. NYSTATIN (MYCOSTATIN) 394732 UNIT/GM POWDER Apply topically 2 times daily. OMEPRAZOLE (PRILOSEC) [address] CAPSULE Take 1 capsule (20 mg) by mouth daily. Do not crush or chew. RESPIRATORY THERAPY SUPPLIES (CARETOUCH 2 CPAP HOSE DRUG ABUSE TREATMENT SPECIALIST) MISC CPAP 10 cm h20 THIAMINE (VITAMIN [...] Frank RD - 11/15/2023 12:30 PM EDT [facility] > 6 MONTH POST-OPERATIVE DIETITIAN VISIT Date: 11/15/23 Patient's weight decreased by: 116.6 lbs Patient does consume 5-6 small meals daily Patient s portions are adequate for current diet: -1 cup Protein requirements discussed- currently consuming estimate about 50-60 grams protein daily. Current protein sources: Indian yogurt. Cheese, meat sticks, chicken, lean beef [...] by: Kimberley Frank RD documented in this [facility] [id number] Miscellaneous Notes* Addendum Note - Jessa Colon - 11/15/2023 12:30 PM EDTAddended by: JESSA COLON on: 02/11/2024 10:11 AM Modules accepted: Orders documented in this [facility]09-23-2024 Note* Addendum Note - Jessa Colon - 11/15/2023 12:30 PM EDTAddended by: JESSA COLON on: 02/11/2024 10:11 AM Modules accepted: Orders [facility] [id number] Telephone encounter Note* Telephone Encounter - Kimberley Frank RD - 11/08/2023 10:25 AM EDT DOS 05/10/23 LRYGB JZ 11/15/2023-6M POP 11/01/2023 Zinc: 73 (WNL) Vitamin B1: 91 (WNL) 10/29/2023 Vitamin B12: 713 (WNL) MyChart sent to pt to inform pt of normal labs. [employer] Phone: 1(377) 685-306109-16-2024 Telephone encounter Note* Telephone Encounter - Kimberley Frank RD - 11/08/2023 10:25 AM EDT ----- Message from Memo Campbell MD sent at 10/29/2023 11:09 AM EDT ----- Camacho Chu I ordered annual labs including B1, B12 and zinc, please follow-up on this as an outpatient. Thanks [facility] [id number] Miscellaneous Notes* Telephone Encounter - Kimberley Frank [...] as an outpatient. Thanks documented in this encounterSACMC Healthcare SystemQbrkoz05-05-1285 Telephone encounter Note* Telephone Encounter - Orestes Gibson - 11/05/2023 9:53 AM EDT Called and spoke with Dr. Bhatia office in regards to pt follow up appoitnment. Office is already seeing her next week and they requested any labs she had done while in the ED. Faxed labs and scanned into media. TY [facility] HospitalTfbzvw82-32-5379 Miscellaneous Notes* Telephone Encounter - Orestes Gibson - 11/05/2023 9:53 AM EDT Called and spoke with Dr. Bhatia office in regards to pt follow up appoitnment. Office is already seeing her next week and they requested any labs she had done while in the ED. Faxed labs and scanned into media. TY documented in this [facility]09-11-2024 Telephone encounter Note* Telephone Encounter - LUCIA Lamb CNP - 11/03/2023 10:42 AM EDT Noted, thanks [facility] Phone: [phone] Miscellaneous Notes* Telephone Encounter - LUCIA Lamb [...] CT showingpancreatitis but left AMA for reported children's program coordinator concerns. Patient is currently admitted. Will continue [...] live 1.5 hrs away. Will route to [facility] as FYI. * Telephone Encounter - Balwinder Weeks RN - 10/28/2023 8:12 AM EDT DOS 05/10/23 LRYGB JZ Last OV-08/11/23 with MZ, next 11/15/23 with TESSA Pt was seen in ER on 10/26/23 and was to be admitted with transaminitis. Will send to for review. * Telephone Encounter - Jolly Dodd RN - 10/28/2023 6:51 AM EDT S: Patient spoke with [facility] nurse regarding pancreatitis. B: Onset of symptoms 10/20/23. ER 10/26/23. [place] Y 05/10/23. A: In the ER and they wanted to admit her and discharged self d/t children's program coordinator and for pancreatitis and possible liver obstructions. [...] very dry mouth, very lightheaded) Protocols used: [id number] documented in this encounterSACMC Healthcare [id number] Telephone encounter Note* Telephone Encounter - Zully Anton RN - 11/03/2023 7:22 AM EDT Patient discharged to home on 11/02/23. Follow up scheduled with MZ on 11/14/33. [facility] HospitalIjvzgy82-23-6763 Hospital course Narrative* Billy Ray MD - 11/02/2023 5:06 PM EDT [...] pain. Of note, patient was admitted to [facility] from 10/25-10/26 for abdominal pain but left [...] Orders (From admission, onward) Start Ordered 10/31/23 09 Adult diet Regular Diet effective now Question: [...] three times daily. CareTouch 2 CPAP Hose Milk Receiver Tank Truck misc ferrous sulfate 325 (65 Fe) MG [...] tablet VITAMIN D (CHOLECALCIFEROL) PO Recommended Follow-up: [facility] [address] [place] [id number] Complexity of Follow up: [] Moderate Complexity: follow up within 7-14 calendar days ([address]72) [x] Severe Complexity: follow up within 7 calendar days ([address]) Follow up Testing, Pending results or Referrals [...] appointment within the above time frame. Signed: Billy Ray MD Division of Hospitalist Medicine Inpatient Medical Services/[facility] 11/02/2023, 5:10 PM documented in this encounterSACMC Healthcare SystemByczog54-04-9487 Note* Care Coordination - Kristine Chavira - 11/02/2023 3:47 PM EDT SW completed [facility] Readmission Questionnaire with patient. . [facility] [id number] Note* Care Coordination - Kristine Chavira - 11/02/2023 3:47 PM EDT SW completed [facility] Readmission Questionnaire with patient. . [facility] HospitalVjkjid91-53-4254 Miscellaneous Notes* Care Coordination - Kristine Chavira - 11/02/2023 3:47 PM EDT SW completed [facility] Readmission Questionnaire with patient. . * Care [...] Limits Permission given to speak with patient hostess party sales representative/caregiver as indicated: No Confirmation of Payer with patient/family: Yes Payer Name: [facility] Mitchell: No Confirmation of Primary Care Physician: Confirmed [...] Nancy Vega RN * Care Plan - Deisy Estrada RN - 10/28/2023 9:52 PM EDT [...] include maintain nausea control documented in this [facility]09-10-2024 Note* Care Coordination - Nancy Vega RN - 11/02/2023 1:18 PM EDT SPOKE WITH PT THIS MORNING, HOPING TO GO HOME TODAY. GI HAS SIGNED OFF, PT TO FOLLOW UP OUTPT WITH THEM. SPOKE WITH DR RAY, PLANS TO CONSULT ID TODAY. ANTICIPATE DISCHARGE TO HOME WITH NO NEEDS. [facility] HospitalYzkzvn69-43-8468 Note* Care Coordination - Nancy Vega RN - 11/02/2023 1:18 PM EDT SPOKE WITH PT THIS MORNING, HOPING TO GO HOME TODAY. GI HAS SIGNED OFF, PT TO FOLLOW UP OUTPT WITH THEM. SPOKE WITH DR RAY, PLANS TO CONSULT ID TODAY. ANTICIPATE DISCHARGE TO HOME WITH NO NEEDS. [facility] [id number] Consult note* Lydia Strickland, LUCIA - OPHTHALMOLOGY SURGICAL TECHNICIAN - 11/02/2023 12:15 PM EDTAssociated Order(s): IP CONSULT TO INFECTIOUS DISEASES Images from the original note were not included. [facility] - Infectious Diseases OPHTHALMOLOGY SURGICAL TECHNICIAN Consult Note Reason for Consult: + EBV, + CMV History of Present Illness: This is a 28F who presented to the ED on 10/27 with c/o nausea, vomiting, abdominal pain, and dehydration. She initially presented to [facility] on 10/25 but left AMA dt childcare needs. She recently underwent lap gastric bypass 04/2023 with liver biopsy intra op dt enlarged appearence of liver. Liver biopsy resulted with severe hepatic steatosis. Her post operative course was c/b pancreatitis. 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 She denies recent travel or sick contacts. She has small children at home in daycare but in good health and without similar illness. Seen by her PCP -> Covid/ Flu negative. At [facility] ED she was afebrile, hypertensive. Initial blood [...] HERNIA REPAIR 1999 Dr. Memo [facility] / [facility] - inguinal hernia LAP GASTRIC BYPASS/SANDRA-EN-Y (HISTORICAL) 05/10/2023 LRYGB - Dr. Campbell LAP,CHOLECYSTECTOMY (HISTORICAL) 2009 Dr. Memo [facility] / [facility] UPPER GASTROINTESTINAL ENDOSCOPY Current Medications: Current Facility-Administered [...] packet 17 g 17 g Oral Daily Matteo Snell MD 17 g at 11/02/23 0814 [...] min Stress: No Stress Concern Present (10/28/2023) [facility] [employer] [facility] - Occupational Stress Questionnaire Feeling of Stress : Not at all Social Connections: Socially Integrated (10/28/2023) Social Connection and Isolation Panel [NHANES] Frequency of Communication with Friends and Family: More than three times a week Frequency of Social Gatherings with Friends and Family: Once a week Attends Islam Services: More than 4 times per year [...] 0 negative 10/26 urine culture- normal gu [place] 10/26 blood cx- ngtd 10/25 bood cx- [...] from ID standpoint Case staffed with Dr Addisno ID will sign off. Please call with [...] tests, and pr ocedures. Lydia Strickland APRN, OPHTHALMOLOGY SURGICAL TECHNICIAN [facility] Infectious Disease 12:16 PM 11/02/2023 [employer] Work Phone: [phone]) 781-206909-10-2024 Consult note* Lydia Strickland APRN - OPHTHALMOLOGY SURGICAL TECHNICIAN - 11/02/2023 12:15 PM EDTAssociated Order(s): IP CONSULT TO INFECTIOUS DISEASES Images from the original note were not included. [facility] - Infectious Diseases OPHTHALMOLOGY SURGICAL TECHNICIAN Consult Note Reason for Consult: + EBV, + CMV History of Present Illness: This is a 28F who presented to the ED on 10/27 with c/o nausea, vomiting, abdominal pain, and dehydration. She initially presented to [facility] on 10/25 but left AMA dt childcare needs. She recently underwent lap gastric bypass 04/2023 with liver biopsy intra op dt enlarged appearence of liver. Liver biopsy resulted with severe hepatic steatosis. Her post operative course was c/b pancreatitis. 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 She denies recent travel or sick contacts. She has small children at home in daycare but in good health and without similar illness. Seen by her PCP -> Covid/ Flu negative. At [facility] ED she was afebrile, hypertensive. Initial blood [...] 1999 Dr. Memo [facility] / [facility] - inguinal hernia LAP GASTRIC BYPASS/SANDRA-EN-Y (HISTORICAL) 05/10/2023 LRYGB - Dr. Campbell LAP,CHOLECYSTECTOMY (HISTORICAL) 2009 Dr. Memo [facility] / [facility] UPPER GASTROINTESTINAL ENDOSCOPY Current Medications: Current [...] packet 17 g 17 g Oral Daily Matteo Snell MD 17 g at 11/02/23 0814 [...] min Stress: No Stress Concern Present (10/28/2023) [facility] [employer] [employer] [facility] - Occupational Stress Questionnaire Feeling of Stress : Not at all Social Connections: Socially Integrated (10/28/2023) Social Connection and Isolation Panel [NHANES] Frequency of Communication with Friends and Family: More than three times a week Frequency of Social Gatherings with Friends and Family: Once a week Attends Islam Services: More than 4 times per year [...] 0 negative 10/26 urine culture- normal gu [place] 10/26 blood cx- ngtd 10/25 bood cx- [...] tests, and pr ocedures. Lydia Strickland APRN, [facility] Infectious Disease 12:16 PM 11/02/2023 * [...] q4h when experiencing breakouts. She went to [place] ED on 10/25 for nausea and general [...] 34.0 Hep B/C panels negative, Acetaminophen <10, [place] test negative. Lipase normal (135). She reports [...] Medical History: Diagnosis Date Anemia Atrial fibrillation ([facility]) COVID-19 vaccine series completed 10/2020 SANTOS (dyspnea [...] min Stress: No Stress Concern Present (10/28/2023) [facility] [employer] [facility] [employer] - Occupational Stress Questionnaire Feeling of Stress : Not at all Social Connections: Socially Integrated (10/28/2023) Social Connection and Isolation Panel [NHANES] Frequency of Communication with Friends and Family: More than three times a week Frequency of Social Gatherings with Friends and Family: Once a week Attends Islam Services: More than 4 times per year [...] discussed with the patient. CBC: Recent Labs 10/27/2347 10/28/23 0946 10/29/23 0130 WBC 7.3 10.0 [...] core antibody, ferritin, cerulopasmin, anti-SMA, AMA, DANGELO, qbqpt-9-qfzlmasjvpl) - continue LR 75 ml/hr - presently [...] 2009 Dr. Memo [facility] / [facility] UPPER GASTROINTESTINAL ENDOSCOPY Current Medications: @MEDSCURRENTMD@ [...] min Stress: No Stress Concern Present (10/28/2023) [facility] [employer] [facility] - Occupational Stress Questionnaire Feeling of Stress : Not at all Social Connections: Socially Integrated (10/28/2023) Social Connection and Isolation Panel [NHANES] Frequency of Communication with Friends and Family: More than three times a week Frequency of Social Gatherings with Friends and Family: Once a week Attends Islam Services: More than 4 times per year [...] discussed with Dr. Campbell Associated attestation - eMmo Campbell MD - 10/29/2023 1:08 PM EDT Images from the original note were not included. [facility] - Surgery [facility] Physicians Surgery Patient Name: Anne Marie Peterson Date: 10/29/23 Seen and examined. Sitting on the end of the bed, pain-free. States that she felt great last week, tolerating diet before she went to [place]. Imaging including May MRI reviewed as well as imaging and labs from [place] admission. Total and direct bilirubin elevated. MRCP pending. BP 118/71 (BP Location: Left arm, Patient Position: Sitting) Pulse 82 Temp 36.6 C (97.8 F) (Temporal) Resp 20 Ht 5' 6 (1.676 m) Wt (!) 305 lb (138 kg) LMP 10/28/2023 (Exact Date) SpO2 93% BMI 49.23 kg/m CBC: Recent Labs 10/27/23 0510/28/23 0946 10/29/23 0130 WBC 7.3 10.0 7.5 HGB 11.2* 12.3 11.0* HCT 35.4 37.9 34.0* PLT 169 191 153 BMP: Recent Labs 10/27/23 0547 10/28/23 0946 10/29/23 0130 NA 136 134* 134* K 3.3* 3.5 3.3* CL 101 100 101 CO2 23 23 23 BUN 5* 5* 5* CREATININE 0.65 0.58 0.54 GLUCOSE 73 87 77 Hepatic: Recent Labs 10/26/23232110/27/2354610/28/23 0946 10/29/23 0130 ALKPHOS 595* 566* 707* [...] chart review was performed. documented in this [facility]09-10-2024 Note* Care Coordination - LUCIA Cruz [facility] - 11/02/2023 10:50 AM EDT Department of Internal Medicine Gastroenterology Liver doppler WNL. Primary team notified recommended ID evaluation for positive CMV IGG and IGM andEBV IGM. Transaminitis likely infectious. Follow up with Dr. Malone as recommended. LUCIA Rehman [facility] 11/02/2023 [facility] Phone: [phone] Note* Care Coordination - LUCIA Cruz [facility] - 11/02/2023 10:50 AM EDT Department of Internal Medicine Gastroenterology Liver doppler WNL. Primary team notified recommended ID evaluation for positive CMV IGG and IGM andEBV IGM. Transaminitis likely infectious. Follow up with Dr. Malone as recommended. LUCIA Rehman [facility] 11/02/2023 [facility] Phone: [phone]) 540-244109-09-2024 Plan of care note* Care Plan - [...] Recommendations to address these barriers include none. [facility] HospitalMrgdec41-86-6429 Plan of care note* Care Plan - [...] Recommendations to address these barriers include none. [facility] HospitalZwhccc13-99-1732 Note* Care Coordination - Nancy Vega RN [...] Stay (Days): 4 GMLOS: No GMLOS Documented [facility] HospitalUpiqwe04-49-3443 Note* Care Coordination - Nacny Vega RN - 11/01/2023 1:36 PM EDT [...] Stay (Days): 4 GMLOS: No GMLOS Documented [facility] HospitalCjzdjn02-31-2238 History of Present illness Narrative* Conor Ragland MD - 11/01/2023 9:12 AM EDT Hospitalist Progress Note 11/01/2023 Subjective: Admit Date: 10/28/2023 PCP: Xenia Lane Room#: [id number] A BRIEF HOSPITAL COURSE: 28-year-old female with past medical history significant for paroxysmal A-fib sleep apnea presentedto emergency room at [facility] 1 week ago with complaints of abdominal pain and persistentfever CT abdomen revealed a possible mild pancreatitis with normal lipase levels patient was admitted at [facility] for elevated liver function test and persistent nausea and vomiting with mild pancreatitis but patient left AGAINST MEDICAL ADVICE [facility] patient did [...] mL/hr, Last Rate: 75 mL/hr (11/01/23 0628) Assessment Acute, acute on chronic, unstable/uncontrolled chronic [...] Contact Information Primary Emergency Contact: Dano Orellana [facility] [employer] Relation: Partner Secondary Emergency Contact: Aliyah Peterson Mobile Relation: Mother Conor Ragland MD Division of Hospitalist Medicine [facility] * Jaswinder Chappell MD - 11/01/2023 [...] Villarreal MD, Last Rate: 75 mL/hr at 11/01/23627, 75 mL/hr at 11/01/23627 metoprolol tartrate (Lopressor) tablet 25 mg, 25 mg, Oral, BID, Manuel Villarreal MD, 25 mg at 10/31/232054 ondansetron ODT (Zofran-ODT) disintegrating tablet 4 mg, 4 mg, Oral, q8h PRN OR ondansetron (Zofran) injection 4 mg, 4 mg, IntraVENous, q6h PRN, Manuel Villarreal MD polyethylene glycol (PEG) 3350 (Miralax) packet 17 g, 17 g, Oral, Daily, Matteo Snell MD OBJECTIVE VITALS: BP 110/73 Pulse [...] with the patient. CBC: Recent Labs 10/30/2342810/31/23 0500 11/01/23 0553 [...] Subjective: Admit Date: 10/28/2023 PCP: Xenia Lane [facility]#: [id number] A BRIEF HOSPITAL COURSE: 28-year-old female with past medical history significant for paroxysmal A-fib sleep apnea presentedto emergency room at [facility] 1 week ago with complaints of abdominal pain and persistentfever CT abdomen revealed a possible mild pancreatitis with normal lipase levels patient was admitted at [facility] for elevated liver function test and persistent nausea and vomiting with mild pancreatitis but patient left AGAINST MEDICAL ADVICE [facility] on presentation patient did [...] Contact Information Primary Emergency Contact: Dano Orellana [facility] [employer] Relation: Partner Secondary Emergency Contact: Aliyah Peterson Mobile Relation: Mother Conor Ragland MD Division of Hospitalist Medicine [facility] * Carmen Purdy MD - 10/31/2023 [...] 600 mg, 600 mg, Oral, Once, Micky Salazar, lactated Ringer's infusion, 75 mL/hr, IntraVENous, Continuous, Manuel Villarreal MD, Last Rate: 75 mL/hr at 10/31/23 0846, 75 mL/hr at 10/31/23 08 metoprolol tartrate (Lopressor) tablet 25 mg, 25 mg, Oral, BID, Manuel Villarreal MD, 25 mg at 10/30/232049 ondansetron ODT (Zofran-ODT) disintegrating tablet 4 mg, 4 mg, Oral, q8h PRN OR ondansetron (Zofran) injection 4 mg, 4 mg, IntraVENous, q6h PRN, Manuel Villarreal MD polyethylene glycol (PEG) 3350 (Miralax) packet 17 g, 17 g, Oral, Daily, Matteo Snell MD OBJECTIVE VITALS: BP 132/95 (BP [...] MRCP negative. Denies any new medications. * Matteo Snell MD - 10/31/2023 8:09 AM EDT [...] mL/hr, Last Rate: 75 mL/hr (10/28/23 1735) PRN medications: acetaminophen OR acetaminophen, ondansetron ODT [...] team Will discuss with Jaqui Mcgrath MD Matteo Snell MD Department of Surgery Pager: [phone] PAGING / Wishpot Secure Chat: From 6a-p (-s): [employer] Secure Chat (FIRST) or Pager above (EMERGENT/Second) From -6a (-): Find resident provider under [facility] Surgery - General - Surgical ICU Patients: [...] This note may have been dictated using [employer] Practice Edition and/or [employer] Voice Recognition Feature. The document was proofread; however, unrecognized voice recognition conventional underwriter errors may be present. Associated attestation - Fernando Dailey MD - 11/01/2023 7:57 AM EDT No pain. Abdomen soft. Lfts still uptrending. 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 No [...] Total time and encounter type: Subsequent low 64464, 25-34 minutes * Matteo Snell MD - 10/30/2023 10:32 AM EDT [...] 75 mL/hr, Last Rate: 75 mL/hr (10/28/23 0295) PRN medications: acetaminophen OR acetaminophen, ondansetron ODT [...] team Will discuss with Jaqui Mcgrath MD Matteo Snell MD Department of Surgery Pager: [phone] PAGING / Wishpot Secure Chat: From 6a-6p (6a- weekends): Epic Secure Chat (FIRST) or Pager above (EMERGENT/Second) From 6p-6a (-6a weekends): Find resident provider under [facility] Surgery - General - Surgical ICU Patients: [...] This note may have been dictated using Gadget[employer]M Practice Edition and/or [employer] Voice Recognition Feature. The document was proofread; however, unrecognized voice recognition conventional underwriter errors may be present. Associated attestation - Fernando Dailey MD - 11/01/2023 7:57 AM EDT Pt was off floor during rounds. * Lucrecia Feliciano - 10/30/2023 8:44 AM EDT Nutrition rescreen completed. Chart reviewed. Patient to be monitored and followed by the diet retail maintenance technician. Dietitian available upon request. * Conor Ragland MD - 10/30/2023 8:31 AM EDT Hospitalist Progress Note 10/30/2023 Subjective: Admit Date: 10/28/2023 PCP: Xenia [facility]#: [id number] A BRIEF HOSPITAL COURSE: 28-year-old female with past medical history significant for paroxysmal A-fib sleep apnea presentedto emergency room at [facility] 1 week ago with complaints of abdominal pain and persistentfever CT abdomen revealed a possible mild pancreatitis with normal lipase levels patient was admitted at [facility] for elevated liver function test and persistent nausea and vomiting with mild pancreatitis but patient left AGAINST MEDICAL ADVICE [facility] patient did [...] obstructive uses cpap LABS: CBC: Recent Labs 10/28/2394510/29/23 0130 10/30/23428 WBC 10.0 7.5 7.9 RBC 5.46* 4.87 4.77 HGB 12.3 11.0* 10.9* HCT 37.9 34.0* 33.6* MCV 69.4* 69.8* 70.4* RDW 18.3* 18.3* 18.2* PLT 191 153 180 BMP: Recent Labs 10/28/23 0946 10/29/23 0130 10/30/23428 NA 134* 134* 136 K 3.5 3.3* 3.5 CL 100 101 102 CO2 23 23 23 BUN 5* 5* 4* CREATININE 0.58 0.54 0.55 GLUCOSE 87 77 71 CALCIUM 8.4 8.2* 8.2* ANIONGAP 11 10 12 LIVER PROFILE: Recent Labs 10/28/2346 10/29/23 0130 10/30/23 0429 AST 475* 377* 411* ALT 280* 229* [...] Contact Information Primary Emergency Contact: Dano Orellana [facility] Mobile Relation: Partner Secondary Emergency Contact: KristenAliyah Mobile Relation: Mother Conor Ragland MD Division of Hospitalist Medicine [facility] * Ashely Ochoa MD - 10/29/2023 11:47 AM EDT Hospitalist Progress Note 10/29/2023 Subjective: Admit Date: 10/28/2023 PCP: Xenia Lane Room#: [id number] A BRIEF HOSPITAL COURSE: 28-year-old female with past medical history significant for paroxysmal A-fib sleep apnea presentedto emergency room at [facility] 1 week ago with complaints of abdominal pain and persistentfever CT abdomen revealed a possible mild pancreatitis with normal lipase levels patient was admitted at [facility] for elevated liver function test and persistent nausea and vomiting with mild pancreatitis but patient left AGAINST MEDICAL ADVICE [facility] on [facility] patient did [...] uses cpap LABS: CBC: Recent Labs 10/27/23 0510/28/23 0946 10/29/23 0130 WBC 7.3 10.0 7.5 RBC 4.90 5.46* 4.87 HGB 11.2* 12.3 11.0* HCT 35.4 37.9 34.0* MCV 72.2* 69.4* 69.8* RDW 17.9* 18.3* 18.3* PLT 169 191 153 BMP: Recent Labs 10/27/23 0510/28/23 0946 10/29/23 0130 NA 136 134* 134* K 3.3* 3.5 3.3* CL 101 100 101 CO2 23 23 23 BUN 5* 5* 5* CREATININE 0.65 0.58 0.54 GLUCOSE 73 87 77 CALCIUM 8.3* 8.4 8.2* ANIONGAP 12 11 10 LIVER PROFILE: Recent Labs 10/27/23 0510/28/23 0946 10/29/23 0130 AST 374* 475* 377* [...] Contact Information Primary Emergency Contact: Dano Orellana [facility] Mobile Relation: Partner Secondary Emergency Contact: KristenAliyah Mobile Relation: Mother Ashely Ochoa MD Division of Hospitalist Medicine [facility] documented in this [facility]09-09-2024 Plan of care note* Care Plan - [...] integrity is maintained or improved Outcome: Progressing [facility] [id number] NoteMarked diffuse hepatic steatosis. Hepatosplenomegaly, progressed since prior. Subtle edema within and adjacent to the head and uncinate process of the pancreas, suspicious for mild acute edematous pancreatitis. Correlate with laboratory values. New moderate periportal edema. Periportal and gastrohepatic ligament lymphadenopathy, progressed since prior. Report Dictated on Electronically Signed By: Karlene Acosta MD Electronically Signed Date/Time: 10/31/2023 5:31 PM EDT [facility] [id number] Note. MICRO - Microbiology PROCEDURE: Blood Culture [...] Locations *1: This test was performed at: [facility], [address] [place] [address], [id number]- , [facility]09-08-2024 Note. MICRO - Microbiology PROCEDURE: Blood Culture [...] Locations *1: This test was performed at: [facility], [address] [place] [address], [facility] , [facility] [id number] Plan of care note* Care Plan - [...] for the shift include maintain nausea control [facility] [id number] Note* Care Coordination - Carmen Purdy MD - 10/30/2023 8:29 AM EDT MRCP reviewed, CBD looks normal. Will await the official read. [facility] [id number] Note* Care Coordination - Carmen Purdy MD - 10/30/2023 8:29 AM EDT MRCP reviewed, CBD looks normal. Will await the official read. [facility] HospitalShbqrn13-21-0475 Note. MICRO - Microbiology PROCEDURE: Blood Culture [...] Locations *1: This test was performed at: [facility], [address] [place] [address], [facility] , [facility]09-06-2024 Note* Care Coordination - Nancy Vega RN - 10/29/2023 12:34 PM EDT Care Managment Initial Assessment Date: 10/29/2023 Patient Name: Anne Marie Peterson : 1995 Patient Information Source of Information: Patient Cognition/Language: WFL - Within Functional Limits Permission given to speak with patient hostess party sales representative/caregiver as indicated: No Confirmation of Payer with patient/family: Yes Payer Name: [facility] Mitchell: No Confirmation of Primary Care Physician: Confirmed [...] WILL CONTINUE TO FOLLOW. Nancy Vega RN [facility] [id number] Note* Care Coordination - Nancy Vega RN - 10/29/2023 12:34 PM EDT Care Managment Initial Assessment Date: 10/29/2023 Patient Name: Anne Marie Peterson : 1995 Patient Information Source of Information: Patient Cognition/Language: WFL - Within Functional Limits Permission given to speak with patient hostess party sales representative/caregiver as indicated: No Confirmation of Payer with patient/family: Yes Payer Name: [facility] Mitchell: No Confirmation of Primary Care Physician: Confirmed [...] WILL CONTINUE TO FOLLOW. Nancy Vega RN [facility] [id number] Consult note* Lencho Mathews MD - 10/29/2023 [...] q4h when experiencing breakouts. She went to [facility] ED on 10/25 for nausea and general malaise. Managed as a possible case of acute pancreatitis, advised MRCP and IgG4 testing but after 24 hours, patient had to leave A dueto family matters. At home, she continued [...] 34.0 Hep B/C panels negative, Acetaminophen <10, [place] test negative. Lipase normal (135). She reports [...] Morbid obesity with BMI of 60.0-69.9, adult ([facility]) 04/08/2023 Hepatic steatosis 04/08/2023 History of motion sickness 05/03/2023 Difficult intravenous access 05/03/2023 Dizziness 05/19/2023 Painless pancreatitis 06/03/2023 Acute pancreatitis, unspecified complication status, unspecified pancreatitis type 06/06/2023 Severe malnutrition (CMS/HCC) ([facility]) 06/07/2023 Hypokalemia 06/09/2023 History of gastric bypass 06/09/2023 Deficiency of multiple nutrient elements 06/17/2023 Intestinal malabsorption 06/17/2023 Transaminitis 10/27/2023 Resolved Ambulatory Problems Diagnosis Date Noted No Resolved Ambulatory Problems Past Medical History: Diagnosis Date Anemia Atrial fibrillation ([facility]) COVID-19 vaccine series completed 10/2020 SANTOS (dyspnea [...] min Stress: No Stress Concern Present (10/28/2023) [employer] - Occupational Stress Questionnaire Feeling of Stress : Not at all Social Connections: Socially Integrated (10/28/2023) Social Connection and Isolation Panel [NHANES] Frequency of Communication with Friends and Family: More than three times a week Frequency of Social Gatherings with Friends and Family: Once a week Attends Islam Services: More than 4 times per year [...] core antibody, ferritin, cerulopasmin, anti-SMA, AMA, DANGELO, [id number]) - continue LR 75 ml/hr - presently [...] Denies EToH Will follow. Rajwinder WALLS Gastroenterology [facility] [employer] Work Phone: 1(437) 637-667009-06-2024 Telephone encounter Note* Telephone Encounter - Miley Moise PA-C - 10/29/2023 8:10 AM EDT Noted, thanks [facility] [id number] Miscellaneous Notes* Telephone Encounter - Miley Moise [...] CT showingpancreatitis but left AMA for reported children's program coordinator concerns. Patient is currently admitted. Will continue [...] live 1.5 hrs away. Will route to [facility] as FYI. * Telephone Encounter - Balwinder eWeks RN - 10/28/2023 8:12 AM EDT DOS 05/10/23 LRYGB JZ Last OV-08/11/23 with T[facility], next 11/15/23 with [facility] Pt was seen in ER on 10/26/23 and was to be admitted with transaminitis. Will send to for review. * Telephone Encounter - Jolly Dodd RN - 10/28/2023 6:51 AM EDT S: Patient spoke with [facility] nurse regarding pancreatitis. B: Onset of symptoms 10/20/23. ER 10/26/23. [facility] Y 05/10/23. A: In the ER and they wanted to admit her and discharged self d/t children's program coordinator and for pancreatitis and possible liver obstructions. [...] very dry mouth, very lightheaded) Protocols used: [id number] documented in this encounterSACMC Healthcare [id number] Telephone encounter Note* Telephone Encounter - Zully Anton RN - 10/29/2023 7:52 AM EDT JZ LRYGB 10/28/23 Patient presented to ED on 10/28/23 with nausea, weakness and dizziness. Of note, patient was seen inED on 10/26/23 with plan for admission related to abdominal pain, fever, and anorexia with CT showingpancreatitis but left AMA for reported children's program coordinator concerns. Patient is currently admitted. Will continue to monitor. [facility] HospitalOfihmf16-56-1999 Consult note* Julio Real MD - 10/29/2023 [...] min Stress: No Stress Concern Present (10/28/2023) [employer] - Occupational Stress Questionnaire Feeling of Stress : Not at all Social Connections: Socially Integrated (10/28/2023) Social Connection and Isolation Panel [NHANES] Frequency of Communication with Friends and Family: More than three times a week Frequency of Social Gatherings with Friends and Family: Once a week Attends Islam Services: More than 4 times per year [...] intact IMAGING STUDIES AND LABWORK Recent Labs 09/04/54610/28/23 0946 10/29/23 0130 NA 136 134* 134* [...] 18.3* PLT 169 191 153 Recent Labs 10/28/2346 10/29/23 0130 ALKPHOS 707* 597* ALT 280* [...] from the original note were not included. [facility] - Surgery [facility] Physicians Surgery Patient Name: Anne Marie Peterson Date: 10/29/23 Seen and examined. Sitting on the end of the bed, pain-free. States that she felt great last week, tolerating diet before she went to [facility]. Imaging including May MRI reviewed as well as imaging and labs from [facility] admission. Total and direct bilirubin elevated. MRCP pending. BP 118/71 (BP Location: Left arm, Patient Position: Sitting) Pulse 82 Temp 36.6 C (97.8 F) (Temporal) Resp 20 Ht 5' 6 (1.676 m) Wt (!) 305 lb (138 kg) LMP 10/28/2023 (Exact Date) SpO2 93% BMI 49.23 kg/m CBC: Recent Labs 10/27/2354610/28/23 0946 10/29/23 0130 WBC 7.3 10.0 7.5 HGB 11.2* 12.3 11.0* HCT 35.4 37.9 34.0* PLT 169 191 153 BMP: Recent Labs 10/27/2354610/28/23 0946 10/29/23 0130 NA 136 134* 134* K 3.3* 3.5 3.3* CL 101 100 101 CO2 23 23 23 BUN 5* 5* 5* CREATININE 0.65 0.58 0.54 GLUCOSE 73 87 77 Hepatic: Recent Labs 10/26/23232110/27/2354610/28/23 0946 10/29/23 0130 ALKPHOS 595* 566* 707* [...] myself. A full chart review was performed. [facility] [id number] Plan of care note* Care Plan - Deisy Estrada RN - 10/28/2023 9:52 PM EDT [...] for the shift include maintain nausea control [facility] [id number] Emergency department Note* Danyelle Irby RN - 10/28/2023 6:33 PM EDT Pt refusing gown at this time stating that she would like to stay in her own clothes, pt denies further needs at this time and is resting comfortably in bed. Will continue to monitor. Danyelle Irby RN 10/28/231833 [id number] Emergency department Note* Danyelle Irby RN - [...] and dizziness. 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 Pt states at triage window. I'm pretty [...] some time now. She was admitted at [facility] last week for mild pancreatitis, she had [...] [facility]PA[facility] 1999 [facility] LAP GASTRIC BYPASS/SANDRA-EN-Y (HISTORICAL) 05/10/2023 LRYGB - Dr. Campbell LAP,CHOLECYSTECTOMY (HISTORICAL) 2009 [facility]. [facility] UPPER GASTROINTESTINAL ENDOSCOPY CURRENT MEDICATIONS Previous [...] RESPIRATORY THERAPY SUPPLIES (CARETOUCH 2 CPAP HOSE DRUG ABUSE TREATMENT SPECIALIST) MISC 10 cm h20 THIAMINE (VITAMIN B-1) [...] min Stress: No Stress Concern Present (10/27/2023) [employer] - Occupational Stress Questionnaire Feeling of Stress : Not at all Social Connections: Socially Integrated (10/27/2023) Social Connection and Isolation Panel [NHANES] Frequency of Communication with Friends and Family: More than three times a week Frequency of Social Gatherings with Friends and Family: Once a week Attends Islam Services: More than 4 times per year [...] Culture. Procedure Abnormality Status --------- ------ Complete Urinalysis[[id number]] Please view results for these tests on [...] complaint of nausea, vomiting, recently departed from [facility] AGAINST MEDICAL ADVICE while being treated for [...] 10/28/2023 9:21 AM EDT Emergency Department Encounter [facility] ONCOLOGY [facility] 7E Patient: Anne Marie Peterson : 1995 [...] for clarification.) Rao Mcdonough DO Acute Care [facility] Rao Mcdonough DO 10/29/23 4261 documented in this [facility]09-05-2024 History and physical note* Manuel Villarreal MD - 10/28/2023 12:50 PM EDT Attending History and Physical Admit Date: 10/28/2023 PCP: Xenia Lane CHIEF COMPLAINT: Nausea (Pt c/o of nausea, weakness and dizziness. 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 Pt states at triage window. I'm pretty [...] have clinicalencounter with patient before she left [facility]. Patient came back to [facility] ED today. Upon evaluation, patient Denies abdominal [...] 1999 Dr. Memo Duke / [facility] - inguinal hernia LAP GASTRIC BYPASS/SANDRA-EN-Y (HISTORICAL) 05/10/2023 LRYGB - Dr. Campbell LAP,CHOLECYSTECTOMY (HISTORICAL) 2009 [facility] UPPER GASTROINTESTINAL ENDOSCOPY Family History: Family [...] tablet 475 mg 475 mg Oral TID Joseluis Gentile MD 475 mg at 10/27/23 0954 [DISCONTINUED] cholecalciferol (Vitamin D-3) tablet 125 mcg 125 mcg Oral Daily Joseluis Gentile MD 125 mcg at 10/27/23 1256 [DISCONTINUED] enoxaparin (Lovenox) syringe 30 mg 30 mg SubCUTAneous 2 times per day Joseluis Gentile MD [DISCONTINUED] ferrous sulfate tablet 325 mg 325 mg Oral BID Joseluis Gentile MD 325 mg at 10/27/23 0955 [DISCONTINUED] flecainide (Tambocor) tablet 150 mg 150 mg Oral Once PRN Joseluis Gentile MD [DISCONTINUED] HYDROmorphone (Dilaudid) injection 0.5 mg 0.5 mg IntraVENous q4h PRN Joseluis Gentile MD [DISCONTINUED] HYDROmorphone (Dilaudid) injection 1 mg 1 mg IntraVENous q4h PRN Joseluis Gentile MD [DISCONTINUED] magnesium chloride EC tablet 64 mg 1 tablet Oral Daily Joseluis Gentile MD 64 mg at 10/27/23 0900 [DISCONTINUED] metoprolol tartrate (Lopressor) tablet 25 mg 25 mg Oral BID Joseluis Gentile MD 25 mg at 10/27/232048 [DISCONTINUED] naloxone (Narcan) injection 0.4 mg 0.4 mg IntraVENous q5 min PRN Joseluis Gentile MD [DISCONTINUED] ondansetron (Zofran) injection 4 mg 4 mg IntraVENous q6h PRN Jsoeluis Gentile MD [DISCONTINUED] ondansetron ODT (Zofran-ODT) disintegrating tablet 4 mg 4 mg Oral q8h PRN Joseluis Gentile MD [DISCONTINUED] pantoprazole (ProtoNix) EC tablet 40 mg 40 mg Oral qAM AC Joseluis Gentile MD [DISCONTINUED] polyethylene glycol (PEG) 3350 (Miralax) packet 17 g 17 g Oral Daily PRN Joseluis Gentile MD [DISCONTINUED] therapeutic multivitamin-minerals (Theragran-M) tablet 1 tablet Oral Daily Joseluis Gentile MD 1 tablet at 10/27/23 1000 [DISCONTINUED] thiamine (Vitamin B1) tablet 50 mg 50 mg Oral Daily Joseluis Gentile MD 50 mg at 10/27/23 0953 [...] Respiratory Therapy Supplies (CareTouch 2 CPAP Hose Milk Receiver Tank Truck) misc 10 cm h20 thiamine (Vitamin B-1) [...] min Stress: No Stress Concern Present (10/27/2023) [employer] - Occupational Stress Questionnaire Feeling of Stress : Not at all Social Connections: Socially Integrated (10/27/2023) Social Connection and Isolation Panel [NHANES] Frequency of Communication with Friends and Family: More than three times a week Frequency of Social Gatherings with Friends and Family: Once a week Attends Islam Services: More than 4 times per year [...] obvious deformities seen DATA: CBC: Recent Labs 10/26/23 2322 10/27/23 0547 10/28/23 0946 WBC 9.0 7.3 10.0 [...] Value Ref Range Urine Culture Normal urogenital angeles present COVID-19 PCR: No results for input(s): [...] and dizziness. 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 Pt states at triage window. I'm pretty [...] - DO NOT do CPR, intubation] [_] [DNR-MANAGER MAIL - Comfort care only] [_] DNR form [...] issues and current presentation. Manuel Villarreal MD [facility] 10/28/2023, @NOW [employer] Work Phone: 1(831) 330-275509-05-2024 History and physical note* Manuel Villarreal MD - 10/28/2023 12:50 PM EDT Attending History and Physical Admit Date: 10/28/2023 PCP: Xenia Lane CHIEF COMPLAINT: Nausea (Pt c/o of nausea, weakness and dizziness. 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 Pt states at triage window. I'm pretty [...] she left AMA. Patient came back to [facility] ED today. Upon evaluation, patient Denies abdominal [...] REPAIR 1999 [facility] - inguinal hernia LAP GASTRIC BYPASS/SANDRA-EN-Y (HISTORICAL) 05/10/2023 LRYGB - Dr. Campbell LAP,CHOLECYSTECTOMY (HISTORICAL) 2009 [facility]. [facility] UPPER GASTROINTESTINAL ENDOSCOPY Family History: Family [...] tablet 475 mg 475 mg Oral TID Joseluis Gentile MD 475 mg at 10/27/23 0954 [DISCONTINUED] cholecalciferol (Vitamin D-3) tablet 125 mcg 125 mcg Oral Daily Joseluis Gentile MD 125 mcg at 10/27/23 1256 [DISCONTINUED] enoxaparin (Lovenox) syringe 30 mg 30 mg SubCUTAneous 2 times per day Joseluis Gentile MD [DISCONTINUED] ferrous sulfate tablet 325 mg 325 mg Oral BID Joseluis Gentile MD 325 mg at 10/27/23 0955 [DISCONTINUED] flecainide (Tambocor) tablet 150 mg 150 mg Oral Once PRN Joseluis Gentile MD [DISCONTINUED] HYDROmorphone (Dilaudid) injection 0.5 mg 0.5 mg IntraVENous q4h PRN Joseluis Gentile MD [DISCONTINUED] HYDROmorphone (Dilaudid) injection 1 mg 1 mg IntraVENous q4h PRN Joseluis Gentile MD [DISCONTINUED] magnesium chloride EC tablet 64 mg 1 tablet Oral Daily Joseluis Gentile MD 64 mg at 10/27/23 0900 [DISCONTINUED] metoprolol tartrate (Lopressor) tablet 25 mg 25 mg Oral BID Joseluis Gentile MD 25 mg at 10/27/232048 [DISCONTINUED] naloxone (Narcan) injection 0.4 mg 0.4 mg IntraVENous q5 min PRN Joseluis Gentile MD [DISCONTINUED] ondansetron (Zofran) injection 4 mg 4 mg IntraVENous q6h PRN Joseluis Gentile MD [DISCONTINUED] ondansetron ODT (Zofran-ODT) disintegrating tablet 4 mg 4 mg Oral q8h PRN Joseluis Gentile MD [DISCONTINUED] pantoprazole (ProtoNix) EC tablet 40 mg 40 mg Oral qAM AC Joseluis Gentile MD [DISCONTINUED] polyethylene glycol (PEG) 3350 (Miralax) packet 17 g 17 g Oral Daily PRN Joseluis Gentile MD [DISCONTINUED] therapeutic multivitamin-minerals (Theragran-M) tablet 1 tablet Oral Daily Joseluis Gentile MD 1 tablet at 10/27/23 1000 [DISCONTINUED] thiamine (Vitamin B1) tablet 50 mg 50 mg Oral Daily Joseluis Gentile MD 50 mg at 10/27/23 0953 [...] Respiratory Therapy Supplies (CareTouch 2 CPAP Hose Milk Receiver Tank Truck) misc 10 cm h20 thiamine (Vitamin B-1) [...] min Stress: No Stress Concern Present (10/27/2023) [employer] - Occupational Stress Questionnaire Feeling of Stress : Not at all Social Connections: Socially Integrated (10/27/2023) Social Connection and Isolation Panel [NHANES] Frequency of Communication with Friends and Family: More than three times a week Frequency of Social Gatherings with Friends and Family: Once a week Attends Islam Services: More than 4 times per year [...] Value Ref Range Urine Culture Normal urogenital angeles present COVID-19 PCR: No results for input(s): [...] and dizziness. 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 Pt states at triage window. I'm pretty [...] - DO NOT do CPR, intubation] [_] [DNR-MANAGER MAIL - Comfort care only] [_] DNR form [...] current presentation. Manuel Villarreal MD Acute care [facility] 10/28/2023, @NOW documented in this [facility]09-05-2024 Physician Emergency department Note* Johana Ratliff PA-C [...] and dizziness. 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 Pt states at triage window. I'm pretty [...] some time now. She was admitted at [facility] last week for mild pancreatitis, she had [...] HERN[facility] 1999 [facility] her[facility] LAP GASTRIC BYPASS/SANDRA-EN-Y (HISTORICAL) 05/10/2023 LRYGB - Dr. Campbell LAP,CHOLECYSTECTOMY (HISTORICAL) 2009 Dr. Memo Duke / [facility] UPPER GASTROINTESTINAL ENDOSCOPY CURRENT MEDICATIONS Previous Medications [...] RESPIRATORY THERAPY SUPPLIES (CARETOUCH 2 CPAP HOSE DRUG ABUSE TREATMENT SPECIALIST) MISC 10 cm h20 THIAMINE (VITAMIN B-1) [...] min Stress: No Stress Concern Present (10/27/2023) [employer] - Occupational Stress Questionnaire Feeling of Stress : Not at all Social Connections: Socially Integrated (10/27/2023) Social Connection and Isolation Panel [NHANES] Frequency of Communication with Friends and Family: More than three times a week Frequency of Social Gatherings with Friends and Family: Once a week Attends Islam Services: More than 4 times per year [...] Culture. Procedure Abnormality Status --------- ------ Complete Urinalysis[[id number]] Please view results for these tests on [...] complaint of nausea, vomiting, [facility] System AGAINST MEDICAL ADVICE while being treated for [...] Medicine Provider Johana Ratliff PA-C 10/28/23 1155 [id number] Physician Emergency department Note* Rao Mcdonough DO - 10/28/2023 9:21 AM EDT Emergency Department Encounter [facility] ONCOLOGY MEDICAL UNI 7E Patient: Anne Marie [...] for clarification.) Rao Mcdonough DO Acute Care [facility] Rao Mcdonough DO 10/29/23 9377 [employer] Phone: [phone]) 561-582209-05-2024 Telephone encounter Note* Telephone Encounter - Zully Anton RN - 10/28/2023 8:47 AM EDT Noted, thank you. [facility] [id number] Telephone encounter Note* Telephone Encounter - Balwinder Weeks RN - 10/28/2023 8:30 AM EDT After review by MZ, pt should return to ER. Call to pt and she is on her way to the ER. States she does live 1.5 hrs away. Will route to [facility] as FYI. [facility] [id number] Telephone encounter Note* Telephone Encounter - Balwinder Weeks RN - 10/28/2023 8:12 AM EDT DOS 05/10/23 LRYGB JZ Last OV-08/11/23 with [facility], next 11/15/23 with [facility] Pt was seen in ER on 10/26/23 and was to be admitted with transaminitis. Will send to MZ for review. [facility] [id number] Telephone encounter Note* Telephone Encounter - Jolly Dodd RN - 10/28/2023 6:51 AM EDT S: Patient spoke with [facility] nurse regarding pancreatitis. B: Onset of symptoms 10/20/23. ER 10/26/23. [place] [facility] 05/10/23. A: In the ER and they wanted to admit her and discharged self d/t children's program coordinator and for pancreatitis and possible liver obstructions. [...] very dry mouth, very lightheaded) Protocols used: [id number] [facility] [id number] Nurse Note* Sandy Avery RN - 10/27/2023 9:40 PM EDT Pt's IV taken out. Patient walked to ER exit to her ride. [facility] [id number] Nurse Note* Sandy Avery RN - 10/27/2023 9:40 PM EDT Pt's IV taken out. Patient walked to ER exit to her ride. * Sandy Avery RN - 10/27/2023 8:30 PM EDT This RN was made aware by patient that she cannot stay tonight due to lack of children's program coordinator services for her children. Hospitalist, Dr. Gentile as well as Dr. Moore were notified. POC from Dr. Moore wasrelayed and written down for patient. Asbestos Handler, Chantale was also made aware of the situation on her unit rounds. Will continue to monitor patient until her ride arrives. documented [facility] this [facility]04[facility] Nurse Note* Sandy Avery RN - 10/27/2023 8:30 PM EDT This RN was made aware by patient that she cannot stay tonight due to lack of children's program coordinator services for her children. Hospitalist, Dr. Gentile as well as Dr. Moore were notified. POC from Dr. Moore wasrelayed and written down for patient. Asbestos Handler, Chantale was also made aware of the situation on her unit rounds. Will continue to monitor patient until her ride arrives. [facility] [id number] Plan of care note* Care Plan - Lexis Price RN - 10/27/2023 6:58 PM EDT The patient is Moderately Stable - Low risk of patient condition declining or worsening The patient's goals for the shift include To feel stronger The clinical goals for the shift include maintained safety [facility] [id number] Miscellaneous Notes* Care Plan - Lexis Price [...] are met Outcome: Progressing documented in this [facility]09-04-2024 Consult note* Liborio Moore MD - 10/27/2023 4:36 PM EDTAssociated Order(s): Inpatient consult to Gastroenterology Images from the original note were not included. GI CONSULTATION Patient: Anne Marie Peterson : 1995 Primary Care Physician: Xenia Lane Inpatient consult to Gastroenterology Consult performed by: Liborio Moore MD Consult ordered by: Scott Ray MD REASON FOR CONSULTATION: Abdominal pain/acute [...] 1999 Dr. Memo Duke / [facility] - inguinal hernia LAP GASTRIC BYPASS/SANDRA-EN-Y (HISTORICAL) 05/10/2023 LRYGB - Dr. Campbell LAP,CHOLECYSTECTOMY (HISTORICAL) 2009 Dr. Memo Duke / [facility] UPPER GASTROINTESTINAL ENDOSCOPY FAMILY HISTORY: Family [...] Respiratory Therapy Supplies (CareTouch 2 CPAP Hose Milk Receiver Tank Truck) misc Does not apply, 10 cm h20 thiamine (VITAMIN B-1) 50 mg, Oral, Daily, Take 1 tablet by mouth daily. VITAMIN D, CHOLECALCIFEROL, PO 4,000 Int'l Units, Oral, Daily CURRENT MEDICATIONS: Current Facility-Administered Medications: calcium citrate (Calcitrate) tablet 475 mg, 475 mg, Oral, TID, Joseluis Gentile MD, 475 mg at 10/27/23 0954 cholecalciferol (Vitamin D-3) tablet 125 mcg, 125 mcg, Oral, Daily, Joseluis Gentile MD, 125 mcg at 10/27/23 1256 enoxaparin (Lovenox) syringe 30 mg, 30 mg, SubCUTAneous, 2 times per day, Joseluis Gentile MD ferrous sulfate tablet 325 mg, 325 mg, Oral, BID, Joseluis Gentile MD, 325 mg at 10/27/23 0955 flecainide (Tambocor) tablet 150 mg, 150 mg, Oral, Once PRN, Joseluis Gentile MD HYDROmorphone (Dilaudid) injection 0.5 mg, 0.5 mg, IntraVENous, q4h PRN, Joseluis Gentile MD HYDROmorphone (Dilaudid) injection 1 mg, 1 mg, IntraVENous, q4h PRN, Joseluis Gentile MD magnesium chloride EC tablet 64 mg, 1 tablet, Oral, Daily, Joseluis Gentile MD, 64 mg at 10/27/23 0900 metoprolol tartrate (Lopressor) tablet 25 mg, 25 mg, Oral, BID, Joseluis Gentile MD, 25 mg at 10/27/23 0954 naloxone (Narcan) injection 0.4 mg, 0.4 mg, IntraVENous, q5 min PRN, Joseluis Gentile MD ondansetron ODT (Zofran-ODT) disintegrating tablet 4 mg, 4 mg, Oral, q8h PRN OR ondansetron (Zofran) injection 4 mg, 4 mg, IntraVENous, q6h PRN, Joseluis Gentile MD pantoprazole (ProtoNix) EC tablet 40 mg, 40 mg, Oral, qAM AC, Joseluis Gentile MD polyethylene glycol (PEG) 3350 (Miralax) packet 17 g, 17 g, Oral, Daily PRN, Joseluis Gentile MD therapeutic multivitamin-minerals (Theragran-M) tablet, 1 tablet, Oral, Daily, Joseluis Gentile MD, 1 tablet at 10/27/23 1000 thiamine (Vitamin B1) tablet 50 mg, 50 mg, Oral, Daily, Joseluis Gentile MD, 50 mg at 10/27/23 0953 [...] Patient Name: ANNE MARIE PETERSON [facility] 1995 [id number] Exam Date/Time: 10/26/2023 22:41 Procedure: XR CHEST 1 VIEW Ordering Provider: LOMBARDI AMY Reason For Exam: HYPERTENSION INDICATION: Hypertension. [...] freeto contact the dictating provider for clarification.) [employer] Phone: 1(880) 614-989109-04-2024 Consult note* Liborio Moore MD - 10/27/2023 4:36 PM EDTAssociated Order(s): Inpatient consult to Gastroenterology Images from the original note were not included. GI CONSULTATION Patient: Anne Marie Peterson : 1995 Primary Care Physician: Xenia Lane Inpatient consult to Gastroenterology Consult performed by: Liborio Moore MD Consult ordered by: Scott Ray MD REASON FOR CONSULTATION: Abdominal pain/acute [...] 1999 Dr. Memo Duke / [facility] - inguinal hernia LAP GASTRIC BYPASS/SANDRA-EN-Y (HISTORICAL) 05/10/2023 LRYGB - Dr. Shannan CROCKETT,CHOLECYSTECTOMY (HISTORICAL) 2009 Dr. Memo Duke / [facility] UPPER GASTROINTESTINAL ENDOSCOPY FAMILY HISTORY: Family [...] Respiratory Therapy Supplies (CareTouch 2 CPAP Hose Milk Receiver Tank Truck) misc Does not apply, 10 cm h20 thiamine (VITAMIN B-1) 50 mg, Oral, Daily, Take 1 tablet by mouth daily. VITAMIN D, CHOLECALCIFEROL, PO 4,000 Int'l Units, Oral, Daily CURRENT MEDICATIONS: Current Facility-Administered Medications: calcium citrate (Calcitrate) tablet 475 mg, 475 mg, Oral, TID, Joseluis Gentile MD, 475 mg at 10/27/23 0954 cholecalciferol (Vitamin D-3) tablet 125 mcg, 125 mcg, Oral, Daily, Joseluis Gentile MD, 125 mcg at 10/27/23 1256 enoxaparin (Lovenox) syringe 30 mg, 30 mg, SubCUTAneous, 2 times per day, Joseluis Gentile MD ferrous sulfate tablet 325 mg, 325 mg, Oral, BID, Joseluis Gentile MD, 325 mg at 10/27/23 0955 flecainide (Tambocor) tablet 150 mg, 150 mg, Oral, Once PRN, Joseluis Gentile MD HYDROmorphone (Dilaudid) injection 0.5 mg, 0.5 mg, IntraVENous, q4h PRN, Joseluis Gentile MD HYDROmorphone (Dilaudid) injection 1 mg, 1 mg, IntraVENous, q4h PRN, Joseluis Gentile MD magnesium chloride EC tablet 64 mg, 1 tablet, Oral, Daily, Joseluis Gentile MD, 64 mg at 10/27/23 0900 metoprolol tartrate (Lopressor) tablet 25 mg, 25 mg, Oral, BID, Joseluis Gentile MD, 25 mg at 10/27/23 0954 naloxone (Narcan) injection 0.4 mg, 0.4 mg, IntraVENous, q5 min PRN, Joseluis Gentile MD ondansetron ODT (Zofran-ODT) disintegrating tablet 4 mg, 4 mg, Oral, q8h PRN OR ondansetron (Zofran) injection 4 mg, 4 mg, IntraVENous, q6h PRN, Joseluis Gentile MD pantoprazole (ProtoNix) EC tablet 40 mg, 40 mg, Oral, qAM AC, Joseluis Gentile MD polyethylene glycol (PEG) 3350 (Miralax) packet 17 g, 17 g, Oral, Daily PRN, Joseluis Gentile MD therapeutic multivitamin-minerals (Theragran-M) tablet, 1 tablet, Oral, Daily, Joseluis Gentile MD, 1 tablet at 10/27/23 1000 thiamine (Vitamin B1) tablet 50 mg, 50 mg, Oral, Daily, Joseluis Gentile MD, 50 mg at 10/27/23 0953 [...] discussed with the patient. CMP: Recent Labs 09/03/232110/27/23 0547 NA 135 136 K 3.5 3.3* [...] Procedure: XR CHEST 1 VIEW Ordering Provider: LOMBARDI AMY Reason For Exam: HYPERTENSION INDICATION: Hypertension. VIEWS: Chest portable-one image COMPARISON: 06/07/2023 FINDINGS: The trachea is midline. The heart is not enlarged. The right hemidiaphragm is elevated. The costophrenic angles are sharp. There is no confluent consolidation. Impression: No radiographic acute cardiopulmonary process. Report Dictated on Electronically Signed By: Pgegy Arreaga MD Electronically Signed Date/Time: 10/26/2023 10:44 [...] dictating provider for clarification.) documented in this [facility]09-04-20[facility] Plan of care note* Care Plan - [...] Daily care needs are met Outcome: Progressing [facility] [id number] History and physical note* Joseluis Gentile MD - 10/27/2023 1:42 AM EDT [...] 1999 Dr. Memo Duke / [facility] - inguinal hernia LAP GASTRIC BYPASS/SANDRA-EN-Y (HISTORICAL) 05/10/2023 LRYGB - Dr. Shannan CROCKETT,CHOLECYSTECTOMY (HISTORICAL) 2009 Dr. Memo Duke / [facility] UPPER GASTROINTESTINAL ENDOSCOPY Social History: Social [...] min Stress: No Stress Concern Present (05/19/2023) [employer] - Occupational Stress Questionnaire Feeling of Stress : Only a little Social Connections: Socially Isolated (05/19/2023) Social Connection and Isolation Panel [NHANES] Frequency of Communication with Friends and Family: More than three times a week Frequency of Social Gatherings with Friends and Family: More than three times a week Attends Islam Services: Never Active Member of Clubs or [...] Respiratory Therapy Supplies (CareTouch 2 CPAP Hose Milk Receiver Tank Truck) misc 10 cm h20 thiamine (Vitamin B-1) [...] Contact Information Primary Emergency Contact: Dano Orellana [facility] Mobile Relation: Partner Secondary Emergency Contact: Aliyah Peterson Mobile Relation: Mother ADVANCED [employer]ARE PLANNING Anne Marie Peterson : 1995 Primary Care Physician: Xenia Lane The patient and/or family/surrogate voluntarily agreed to participate in ACP services. Patient s cognitive capacity: AOX3 Code Status: [x_] [FULL CODE - Continue all advanced life support: CPR,intubation,invasive procedures] [_] [DNR-CCA - DO NOT do CPR, intubation] [_] [DNR-MANAGER MAIL - Comfort care only] [_] DNR form [...] of life care, with patient and/or family/surrogate. Joseluis Gentile MD Division of Hospitalist Medicine [facility] [employer] Work Phone: 1(286) 527-737709-04-2024 History and physical note* Joseluis Gentile MD - 10/27/2023 1:42 AM EDT [...] 1999 Dr. Memo Duke / [facility] - inguinal hernia LAP GASTRIC BYPASS/SANDRA-EN-Y (HISTORICAL) 05/10/2023 LRYGB - Dr. Campbell LAP,CHOLECYSTECTOMY (HISTORICAL) 2009 Dr. Memo Duke / [facility] UPPER GASTROINTESTINAL ENDOSCOPY Social History: Social [...] min Stress: No Stress Concern Present (05/19/2023) [employer] - Occupational Stress Questionnaire Feeling of Stress : Only a little Social Connections: Socially Isolated (05/19/2023) Social Connection and Isolation Panel [NHANES] Frequency of Communication with Friends and Family: More than three times a week Frequency of Social Gatherings with Friends and Family: More than three times a week Attends Islam Services: Never Active Member of Clubs or [...] Respiratory Therapy Supplies (CareTouch 2 CPAP Hose Milk Receiver Tank Truck) misc 10 cm h20 thiamine (Vitamin B-1) [...] Contact Information Primary Emergency Contact: Dano Orellana [facility] Mobile Relation: Partner Secondary Emergency Contact: Aliyah Peterson Mobile Relation: Mother ADVANCED CARE PLANNING Anne Marie Peterson : 1995 Primary Care Physician: Xenia Lane The patient and/or family/surrogate voluntarily agreed to participate in ACP services. Patient s cognitive capacity: AOX3 Code Status: [x_] [FULL CODE - Continue all advanced life support: CPR,intubation,invasive procedures] [_] [DNR-CCA - DO NOT do CPR, intubation] [_] [DNR-MANAGER MAIL - Comfort care only] [_] DNR form [...] of life care, with patient and/or family/surrogate. Joseluis Gentile MD Division of Hospitalist Medicine [facility] documented in this [facility]09-03-2024 Emergency department Note* Fernando Vallejo DO - 10/26/2023 8:06 PM EDT Emergency Department Encounter [facility] ED Patient: Anne Marie Peterson : 1995 [...] patient's management with other clinicians: Admitting team [facility] All diagnostic, treatment, and disposition decisions were [...] Vallejo DO 10/27/23 0254 documented in this [facility]09-03-2024 Physician Emergency department Note* Fernando Vallejo DO - 10/26/2023 8:06 PM EDT Emergency Department Encounter [facility] ED Patient: Anne Marie Peterson : 1995 [...] patient's management with other clinicians: Admitting team [facility] All diagnostic, treatment, and disposition decisions were [...] [employer] Fernando Vallejo DO 10/27/23 0254 [facility] HospitalBiakto37-22-1327 Note. MICRO - Microbiology PROCEDURE: Blood Culture [...] Locations *1: This test was performed at: [facility], [address] [place] [address], [facility] , [facility] ([place])10-26-2023 Note. MICRO - Microbiology PROCEDURE: Blood Culture [...] Locations *1: This test was performed at: [address], [facility] , [facility] ([place])10-26-2023 Note. MICRO - Microbiology PROCEDURE: Blood Culture [...] Locations *1: This test was performed at: [address], [facility] , [facility] ([place])10-24-2023 Note. 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 Split night sleep study 10/16/22: moderate [...] min Stress: No Stress Concern Present (05/19/2023) [employer] - Occupational Stress Questionnaire Feeling of Stress : Only a little Social Connections: Socially Isolated (05/19/2023) Social Connection and Isolation Panel [NHANES] Frequency of Communication with Friends and Family: More than three times a week Frequency of Social Gatherings with Friends and Family: More than three times a week Attends Islam Services: Never Active Member of Clubs or [...] Morbid obesity with BMI of 60.0-69.9, adult ([facility]) BMI 52.97, has lost 70 lbs since bariatric surgery in April. Will benefit from continued weight loss. Follow-up per Dr. Campbell. Follow-up: Follow up in about 4 weeks (around 09/20/2023), or if symptoms worsen or fail to improve, for with sleep study. documented in this [facility]07-01-2024 Instructions* Patient Instructions* Kinjal Mane MA - 08/23/2023 11:40 AM EDT YOUR APPOINTMENT TODAY WAS WITH THE [facility], COPD CLINIC, PULMONARY AND SLEEP MEDICINE OFFICE. PLEASE CALL OUR OFFICE AT [phone] IF YOU HAVE NOT RECEIVED YOUR TEST [...] feedback to make improvements. COVID-19 VACCINATION INFORMATION: PH. [phone] HEALTH.[email or web address]/VACCINE [facility] Central Scheduling [phone] [facility] Sleep Scheduling [phone] documented in this [facility]07-01-2024 History of Present illness Narrative* Meet Tania Colorado MD - 08/23/2023 8:30 AM EDT [facility] Cardiology [facility] CARDIOLOGY [address] [facility] [address] Dept: [phone] Dept Loc: [phone] Visit type: New : 1995 Chief Complaint: [...] 1999 Dr. Memo Duke / [facility] - inguinal hernia LAP GASTRIC BYPASS/SANDRA-EN-Y (HISTORICAL) 05/10/2023 LRYGB - Dr. Campbell LAP,CHOLECYSTECTOMY (HISTORICAL) 2009 Dr. Memo Duke / [facility] UPPER GASTROINTESTINAL ENDOSCOPY Family History Family [...] Respiratory Therapy Supplies (CareTouch 2 CPAP Hose Milk Receiver Tank Truck) misc, 10 cm h20, Disp: , Rfl: [...] atrial fibrillation (HCC) Paroxysmal Atrial Fibrillation - [id number] 1 (female) - not on OAC - [...] months with our MARY. documented in this [facility]06-19-2024 History of Present illness Narrative* Miley Moise [...] 18 Ht 5' 5.25 (1.657 m) Comment: [facility] Wt (!) 335 lb 12.8 oz (152 kg) Comment: [facility] BMI 55.45 kg/m General: This patient is [...] Req. Please send results to: Xenia Gomez [facility] [place] [id number] - [phone] And if not done at a [facility] Facility, please send to: [address], [address] Patient Name: Anne Marie Peterson - 1995 Order Created by : Vivian Pool Standing Status: Future Number of Occurrences: 1 Standing Expiration Date: 08/05/2024 Folate These orders are set for an approximate date - they can be drawn up to 3 months prior to the Expected Date on this Req. Please send results to: [place] [address] - [phone] And if not done at a [facility] Facility, please send to: [address], [address] Patient Name: Anne Marie Peterson - 1995 Order Created by : Vivian Pool Standing Status: Future Number of Occurrences: 1 Standing Expiration Date: 08/05/2024 Iron These orders are set for an approximate date - they can be drawn up to 3 months prior to the Expected Date on this Req. Please send results to: X[address] Patricia [facility] [place] [address] - [phone] And if not done at a [facility] Facility, please send to: [address], [address] Patient Name: Anne Marie Tran 1995 Order Created by : Vivian Pool Standing Status: Future Number of Occurrences: 1 Standing Expiration Date: 08/05/2024 Ferritin These orders are set for an approximate date - they can be drawn up to 3 months prior to the Expected Date on this Req. Please send results to: X[address] Patricia [facility] [place] [address] - [phone] And if not done at a [facility] Facility, please send to: [address], [address] Patient Name: Anne Marie Tran 1995 Order Created by : Vivian Pool Standing Status: Future Number of Occurrences: 1 Standing Expiration Date: 08/05/2024 Magnesium These orders are set for an approximate date - they can be drawn up to 3 months prior to the Expected Date on this Req. Please send results to: X[address] [place] [address] - [phone] And if not done at a [facility] Facility, please send to: [address], [address] Patient Name: Anne Marie Tran 1995 Order Created by : Vivian Pool Standing Status: Future Number of Occurrences: 1 Standing Expiration Date: 08/05/2024 Vitamin D Deficiency Screening (Vit D 25) These orders are set for an approximate date - they can be drawn up to 3 months prior to the Expected Date on this Req. Please send results to: [place] [address] - [phone] And if not done at a [facility] Facility, please send to: [address], [address] Patient Name: Anne Marie Peterson - 1995 Order Created by : Vivian Pool Standing Status: Future Number of Occurrences: 1 Standing Expiration Date: 08/05/2024 Vitamin B12 These orders are set for an approximate date - they can be drawn up to 3 months prior to the Expected Date on this Req. Please send results to: X[address] Patricia [facility] [place] [address] - [phone] And if not done at a [facility] Facility, please send to: [address], [address] Patient Name: Anne Marie Tran 1995 Order Created by : Vivian Pool Standing Status: Future Number of Occurrences: 1 Standing Expiration Date: 08/05/2024 Vitamin B1, whole blood ([facility]) These orders are set for an approximate date - they can be drawn up to 3 months prior to the Expected Date on this Req. Please send results to: [address] Patricia [facility] [place] [id number] - [phone] And if not done at a [facility] Facility, please send to: [address], [address] Patient Name: Anne Marie Tran 1995 Order Created by : Vivian Pool Standing Status: Future Number of Occurrences: 1 Standing Expiration Date: 08/05/2024 Lipid panel These orders are set for an approximate date - they can be drawn up to 3 months prior to the Expected Date on this Req. Please send results to: X[address] Patricia [facility] [place] [address] - [phone] And if not done at a [facility] Facility, please send to: [address], [address] Patient Name: Anne Marie Tran 1995 Order Created by : Vivian Pool Standing Status: Future Number of Occurrences: 1 Standing Expiration Date: 08/05/2024 Comprehensive metabolic panel These orders are set for an approximate date - they can be drawn up to 3 months prior to the Expected Date on this Req. Please send results to: [address] [place] [address] - [phone] And if not done at a [facility] Facility, please send to: [address], [address] Patient Name: Anne Marie Tran 1995 Order Created by : Vivian Pool Standing Status: Future Number of Occurrences: 1 Standing Expiration Date: 08/05/2024 CBC These orders are set for an approximate date - they can be drawn up to 3 months prior to the Expected Date on this Req. Please send results to: [address] [place] [address] - [phone] And if not done at a [facility] Facility, please send to: [address], [address], [address] Patient Name: Anne Marie Tran 1995 Order [...] Respiratory Therapy Supplies (CareTouch 2 CPAP Hose Milk Receiver Tank Truck) misc 10 cm h20 VITAMIN D, CHOLECALCIFEROL, [...] RESPIRATORY THERAPY SUPPLIES (CARETOUCH 2 CPAP HOSE DRUG ABUSE TREATMENT SPECIALIST) MISC 10 cm h20 VITAMIN D, CHOLECALCIFEROL, [...] or ALMAZ If YES: Labs completed at [facility]? yes If yes see Labs Tab Labs completed at Non-[facility] facility? N/A If yes see Encounters Tab - Orders only - Historical Provider - Date: 08/11/2023 Completed by: Peggy Friedman MA * Kimberley Frank RD - 08/11/2023 12:45 PM EDT [facility] 3 MONTH POST-OPERATIVE DIETITIAN VISIT Date: 08/11/23 Patient's weight Decreased by: 67.2 lbs Patient does consume 5-6 small meals daily Patient s portions are adequate for current diet: -1 cup Protein requirements discussed- currently consuming 40-60 grams of protein daily. Current protein sources: deli turkey, chicken, Protein shake, cheese, sirloin, ground beef, Indian yogurt Recommendations:continue aiming for 5-6 meals per [...] by: Kimberley Frank RD documented in this encounterSumma [id number] History of Present illness Narrative* Matteo Abreu MD - 07/05/2023 1:00 PM EDT Images from the original note were not included. [facility] [address] [place] [address] Dept: [phone] Dept Visit type: Established : 1995 Reason for Visit: 6 Month Follow-up Assessment and Plan 1. Paroxysmal atrial fibrillation (HCC): currently NSR - metoprolol tartrate (Lopressor) 25 MG tabletBID, better absorbed than succinate (stopped succinate) - referral to [facility] Electrophysiology ACH, given that she is young [...] 2. Atrial fibrillation with RVR (HCC) - [facility] Electrophysiology ACH, above 3. Orthostatic hypotension - [...] Respiratory Therapy Supplies (CareTouch 2 CPAP Hose Milk Receiver Tank Truck) misc 10 cm h20 metoprolol succinate XL [...] 1999 Dr. Memo Duke / Ernst Chavez [facility] - inguinal hernia LAP GASTRIC BYPASS/SANDRA-EN-Y (HISTORICAL) 05/10/2023 LRYGB - Dr. Shannan CROCKETT,CHOLECYSTECTOMY (HISTORICAL) 2009 Dr. Memo Duke / Ernst Chavez [facility] UPPER GASTROINTESTINAL ENDOSCOPY Family History Problem [...] outside my specialty: Independent interpretation of tests: Matteo Abreu MD documented in this [facility]05-13-2024 History of Present illness Narrative* Matteo Abreu MD - 07/05/2023 1:00 PM EDT Images from the original note were not included. [facility] [address] [facility] [address] Dept: [phone] Dept Visit type: Established : 1995 Reason for Visit: 6 Month Follow-up Assessment and Plan 1. Paroxysmal atrial fibrillation (HCC): currently NSR - metoprolol tartrate (Lopressor) 25 MG tabletBID, better absorbed than succinate (stopped succinate) - referral to [facility] Electrophysiology ACH, given that she is young [...] 2. Atrial fibrillation with RVR (HCC) - [facility] Electrophysiology ACH, above 3. Orthostatic hypotension - [...] had episodes of AF on 03/21/23 to [place], that resolved with IV metoprolol. She was placed on metoprolol succinate 25 mg daily after this. She had an episode of AF in May 2023. Per patient her longest period of AF was when she went to [place], it had been about 30 hours that [...] Respiratory Therapy Supplies (CareTouch 2 CPAP Hose Milk Receiver Tank Truck) misc 10 cm h20 metoprolol succinate XL [...] 1999 Dr. Memo Duke / Ernst Chavez [facility] - inguinal hernia LAP GASTRIC BYPASS/SANDRA-EN-Y (HISTORICAL) 05/10/2023 LRYGB - Dr. Campbell LAP,CHOLECYSTECTOMY (HISTORICAL) 2009 Dr. Memo Duke / Ernst Chavez [facility] UPPER GASTROINTESTINAL ENDOSCOPY Family History Problem [...] outside my specialty: Independent interpretation of tests: Matteo Abreu MD documented in this [facility]05-13-2024 Instructions* Patient Instructions* Matteo Abreu MD - 07/05/2023 1:00 PM EDT I am referring you to electrophysiology (electrical nut roaster helper) for the atrial fibrillation, theymay be able to do a procedure called an ablation that has about an 80% success rate to cure Afib If your HR goes above 120 beats per minute or you are symptomatic from atrial fibrillation then youcan take an extra dose of metoprolol tartrate 25 mg Increase your fluids and electrolytes, greater than 64 oz documented in this [facility]04-25-2024 History of Present illness Narrative* Peggy Friedman [...] or ALMAZ If YES: Labs completed at [facility]? yes If yes see Labs Tab Labs completed at Non-[facility] facility? N/A If yes see Encounters Tab - Orders only - Historical Provider - Date: 06/10/2023- 06/11/2023 while inpatient Completed by: Peggy Friedman MA * Kimberley Frank RD - 06/17/2023 9:05 AM EDT [facility] 1 MONTH POST-OPERATIVE DIETITIAN VISIT Date: 06/17/23 [...] from the original note were not included. [facility] SURGICAL PRO[facility] Patient: Anne [...] 18 Ht 5' 5.25 (1.657 m) Comment: [facility] Wt (!) 362 lb 6.4 oz (164 kg) Comment: [facility] BMI 59.85 kg/m General: This patient is [...] RESPIRATORY THERAPY SUPPLIES (CARETOUCH 2 CPAP HOSE DRUG ABUSE TREATMENT SPECIALIST) MISC 10 cm h20 VITAMIN D, CHOLECALCIFEROL, [...] Respiratory Therapy Supplies (CareTouch 2 CPAP Hose Milk Receiver Tank Truck) misc 10 cm h20 VITAMIN D, CHOLECALCIFEROL, PO Take 4,000 Int'l Units by mouth daily. [DISCONTINUED] nystatin (Mycostatin) 220073 UNIT/ML suspension Swish and swallow 5 mL [...] Morbid obesity with BMI of 50.0-59.9, adult ([facility]) Plan: 1). Cleared for all activity, no [...] (Internal Medicine Cardiovascular Disease) documented in this [facility]04-25-2024 History of Present illness Narrative* Peggy Friedman [...] or ALMAZ If YES: Labs completed at [facility]? yes If yes see Labs Tab Labs completed at Non-[facility] facility? N/A If yes see Encounters Tab - Orders only - Historical Provider - Date: 06/10/2023- 06/11/2023 while inpatient Completed by: Peggy Friedman MA * Kimberley Frank RD - 06/17/2023 9:05 AM EDT [facility] [place] 1 MONTH POST-OPERATIVE DIETITIAN VISIT Date: 06/17/23 [...] from the original note were not included. [facility] SURGICAL [facility] Patient: Anne [...] 18 Ht 5' 5.25 (1.657 m) Comment: [facility] Wt (!) 362 lb 6.4 oz (164 kg) Comment: [facility] BMI 59.85 kg/m General: This patient is [...] RESPIRATORY THERAPY SUPPLIES (CARETOUCH 2 CPAP HOSE DRUG ABUSE TREATMENT SPECIALIST) MISC 10 cm h20 VITAMIN D, CHOLECALCIFEROL, [...] Respiratory Therapy Supplies (CareTouch 2 CPAP Hose Milk Receiver Tank Truck) misc 10 cm h20 VITAMIN D, CHOLECALCIFEROL, PO Take 4,000 Int'l Units by mouth daily. [DISCONTINUED] nystatin (Mycostatin) 784703 UNIT/ML suspension Swish and swallow 5 mL [...] Morbid obesity with BMI of 50.0-59.9, adult ([facility]) Plan: 1). Cleared for all activity, no [...] (Internal Medicine Cardiovascular Disease) documented in this [facility]04-25-[facility]24 Miscellaneous Notes* Addendum Note - Magali Borjas - 06/17/2023 9:05 AM EDTAddended by: MAGALI BORJAS on: 08/11/2023 10:14 AM Modules accepted: Orders documented in this [facility]04-25-2024 Note* Addendum Note - Magali Borjas - 06/17/2023 9:05 AM EDTAddended by: MAGALI BORJAS on: 08/11/2023 10:14 AM Modules accepted: Orders [id number] Nurse Note* Jhonatan Rivera RN - 06/11/2023 10:31 AM EDT Pt discharged home, PICC line removed. Pt tolerated well. Discharged instructions reviewed and signed. No question at this time. [address]Tenhjg83-10-1502 Nurse Note* Jhonatan Rivera RN - 06/11/2023 10:31 AM EDT Pt discharged home, PICC line removed. Pt tolerated well. Discharged instructions reviewed and signed. No question at this time. documented in this [place] [address]-19-2024 Note* Care Coordination - Adrián Abreu RN [...] Date/Time Set By Reviewed At 06/11/2023 Adrián bAreu RN 06/11/2023 8:24 AM 06/11/2023 Jeannine Worthy MD 06/11/2023 6:42 AM 06/11/2023 Adrián Abreu RN 06/10/2023 8:09 AM 06/11/2023 Adrián bAreu RN 06/09/2023 8:45 AM 06/11/2023 Adrián Abreu [...] Stay (Days): 5 GMLOS: No GMLOS Documented [facility]odehy67-76-7451 Note* Care Coordination - Adrián Abreu RN [...] Stay (Days): 5 GMLOS: No GMLOS Documented [place] [id number] Miscellaneous Notes* Care Coordination - Adrián Abreu [...] Limits Permission given to speak with patient hostess party sales representative/caregiver as indicated: Yes Confirmation of Payer [...] Prescription Coverage: Yes Pharmacy Used: [facility] IN [place] Medication Management: Independent Transportation/Shopping: Independent Transportation Mode: [...] and agrees with plan. documented in this [place] [address]-19-2024 History of Present illness Narrative* Jeannine Worthy [...] from the original note were not included. [facility] - [facility] Physicians Surgery Patient Name: Anne Marie [...] supervised my Resident/Surgical Fellow in the evaluation [facility] home with outpatient follow-up [place] home with outpatient follow-up management of Anne [...] GLUCOSE 107* 102* 95 HEPATIC: Recent Labs 06/08/23341 ALKPHOS 60 ALT 175* AST 121* PROT 6.1* BILITOT 1.6* BILIDIR 0.0 Current Inpatient Medications Current Facility-Administered Medications: acetaminophen (Ofirmev) IVPB 1,000 mg, 1,000 mg, IntraVENous, q8h, Christy Lopez MD, Stopped at 06/10/23 0050 Adult TPN [...] Jeannine Worthy MD, 25 mg at 06/09/23 7152 naloxone (Narcan) injection 0.4 mg, 0.4 mg, [...] q12h, Suze Cuba MD, 10 mL at 06/10/23 0415 [...] from the original note were not included. [facility] - [facility] Physicians Surgery Patient Name: Anne Marie [...] GLUCOSE 107* 102* 95 Hepatic: Recent Labs 06/08/23341 ALKPHOS 60 ALT 175* AST 121* PROT [...] elective laparoscopic sandra-en-Y procedure 05/10/23 -presented to [facility] 05/19/23 with abdominal pain, concern for small [...] in a.m. TPN macronutrient calculations: Ht: 5' 5 Actual [...] loss Fluid Accumulation: No significant fluid accumulation Surgical Technology Instructor Strength: Not Performed Nutrition Assessment: Pt is a 51-wuli-yvs-female with PMH of s/p elective LRYGB (05/10/23) who presents for concern for pancreatitis; +N+V and abd pain, decreased appetite and intake. She presented to [facility] 05/19/23 with abdominal pain, concern for small [...] On: Kcal/kg Weight Used for Energy Requirements: [place] Weight for Energy Calculation (kg): 57 kg Total Energy Requirements (kcals/day): 3212-2690 (20-25 kcals/kg) Weight Used for Protein Requirements: [place] Weight in Kg Used for Protein Requirements: [...] (405 lb) % Weight Change (Calculated): -8.1 [place] Body Weight (lbs) (Calculated): 126 lbs [place] Body Weight (Kg) (Calculated): 57 kg % [place] Body Weight (Calculated): 295.2 % BMI (kg/m2) [...] Planning: Too soon to determine Rosa Self RD,LD,[facility] Contact: *[phone] or Wishpot Chat * Suze Cbua MD - 06/09/2023 8:07 AM EDT Images from the original note were not included. Nutrition Progress Note Anne Marie Peterson : 1995(27 y.o.) Date: 06/09/23 CC: [...] Sitting Pulse: 74 71 80 67 Resp: Temp: 36.2 C (97.2 F) 36.8 C [...] Skin is not jaundiced. CBC: Recent Labs 06/07/2322206/08/2334106/09/23419 WBC 6.6 7.3 6.0 HGB 10.8* 10.7* 9.8* HCT 35.8 35.9 32.2* MCV 73.4* 72.8* 73.3* PLT 398 360 307 TPN LABS: Recent Labs 06/07/2322206/07/23180306/08/2334106/09/23 042 NA 141 140 137 138 K 3.3* [...] q12h, Fox Saleem MD, 40 mg at 06/08/232131 heparin flush injection 250 Units, 250 Units, [...] from the original note were not included. [facility] - [facility] Physicians Surgery Patient Name: Anne Marie [...] Recent Labs 06/07/23 0223 06/07/23 1804 06/08/23 034 NA 141 140 137 K 3.3* 3.5 [...] from the original note were not included. [facility] - [facility] Physicians Surgery Patient Name: Anne Marie [...] 61.43 kg/m CBC: Recent Labs 06/06/23 0026 06/07/23 0223 06/08/23 [...] 87 109* Hepatic: Recent Labs 06/06/23 0325 06/07/23 0223 06/08/23 0342 ALKPHOS 53 63 60 ALT [...] elective laparoscopic sandra-en-Y procedure 05/10/23 -presented to [facility] 05/19/23 with abdominal pain, concern for small [...] BMP: Recent Labs 06/05/23 0049 06/06/23 0325 06/07/233 NA 141 139 141 K 3.0* 3.2* [...] from the original note were not included. [facility] - [facility] Physicians Surgery Patient Name: Anne Marie [...] 430 398 BMP: Recent Labs 06/05/23 0049 0432406/07/23222 NA 141 139 141 K 3.0* 3.2* [...] Needs screened for MRI please * Seth Lael DO - 06/06/2023 8:07 AM EDT Images [...] (97.4 F) Temporal 58 15 96 % 06/05/232006 114/69 36.1 C (97 F) Temporal 64 [...] injection 2.5 mg, 2.5 mg, IntraVENous, q8h, Ambre Espinoza MD, 2.5 mg at 06/05/23 1634 [...] This note may have been dictated using [employer] Practice Edition 2.6 and/or [employer] Voice Recognition Feature. The document was proofread; however, unrecognized voice recognition conventional underwriter errors may be present. ATTESTATION The patient [...] This note may have been dictated using [employer] [employer] Medical Practice Edition 2.6 and/or [employer] Voice Recognition Feature. The document was proofread; however, unrecognized voice recognition conventional underwriter errors may be present. ATTESTATION The patient [...] from the original note were not included. [facility] - Surgery [facility] Physicians Surgery Patient Name: Anne Marie [...] patient's questions were answered. documented in this [facility]04-18-2024 Note* Care Coordination - Adrián Abreu RN [...] Abreu RN 06/04/2023 8:20 AM 06/05/2023 Christy Lpoez MD 06/04/2023 12:42 AM 06/05/2023 Christy Lopez MD 06/03/2023 11:53 PM 06/05/2023 Christy Lopez MD 06/03/2023 11:48 PM 06/05/2023 Christy Lopez MD 06/03/2023 11:09 PM Length of Stay (Days): 4 GMLOS: No GMLOS Documented [facility] HospitalKgfcls49-95-3278 Note* Care Coordination - Adrián Abreu RN [...] Stay (Days): 4 GMLOS: No GMLOS Documented [facility] HospitalAvhfbu40-34-2403 Hospital course Narrative* Jeannine Worthy MD - [...] known as: Tums CareTouch 2 CPAP Hose Milk Receiver Tank Truck misc ferrous sulfate 325 (65 Fe) MG [...] (CHOLECALCIFEROL) PO STOP taking these medications nystatin 335635 UNIT/ML suspension Commonly known as: Mycostatin DIET: Adult diet Regular ACTIVITY: No restriction. COMPLEXITY OF FOLLOW UP: [x] Moderate Complexity: follow up within 7-14 calendar days (33411) [] Severe Complexity: follow up within 7 calendar days (17136) FOLLOW UP TESTING, PENDING RESULTS OR REFERRALS AT TRANSITIONAL CARE VISIT: [] Yes [x] No PENDING STUDIES: None DISPOSITION: Home Follow up with Memo Campbell MD [address] [place] [address] [address] [place] [address] Schedule an appointment as soon as possible [...] MD 06/11/2023, 7:10 AM documented in this [facility]04-17-2024 Note* Care Coordination - Adrián Abreu RN [...] Stay (Days): 3 GMLOS: No GMLOS Documented [facility] HospitalGmeeob07-28-4149 Note* Care Coordination - Adrián Abreu RN [...] Stay (Days): 3 GMLOS: No GMLOS Documented [facility] HospitalWjbxme01-97-3770 Note* Care Coordination - Adrián Abreu RN [...] Stay (Days): 2 GMLOS: No GMLOS Documented [facility] HospitalOgbfvi80-63-0122 Note* Care Coordination - Adrián Abreu RN [...] Stay (Days): 2 GMLOS: No GMLOS Documented [facility] HospitalWyepxl19-29-2023 Consult note* Mai Ly MD - 06/08/2023 8:41 AM EDTAssociated Order(s): IP CONSULT TO CARDIOLOGY [facility] Cardiology /Electrophysiology Consult Note Reason for Consult/Chief Complaint: AF with RVR Referring provider: Dr. Leal Established nut roaster helper: Dr. Matteo Abreu History of Present Illness: Anne Marie [...] RVR She has hx of paroxymal AF. [id number] of zero. Currently in NSR in the [...] 100 % Final Mai Ly MD PGY-6 Ornamental Metal Worker Helper [facility] [place] 10:42 AM 06/08/23 Associated attestation - Monica [...] clinical findings and my assessment and plan. [facility] Work Phone: [phone]) 712-393704-16-2024 Consult note* Mai Ly MD - 06/08/2023 8:41 AM EDTAssociated Order(s): IP CONSULT TO CARDIOLOGY [facility] Cardiology /Electrophysiology Consult Note Reason for Consult/Chief Complaint: AF with RVR Referring provider: Dr. Leal Established nut roaster helper: Dr. Matteo Abreu History of Present Illness: Anne Marie [...] RVR She has hx of paroxymal AF. [id number] of zero. Currently in NSR in the [...] 100 % Final Mai Ly MD PGY-6 Ornamental Metal Worker Helper [facility] [place] 10:42 AM 06/08/23 Associated attestation - Monica [...] loss Fluid Accumulation: No significant fluid accumulation Surgical Technology Instructor Strength: Not Performed HPI: Anne Marie Peterson [...] On: Kcal/kg Weight Used for Energy Requirements: [place] Weight for Energy Calculation (kg): 57 kg Total Energy Requirements (kcals/day): 9015-9082 (20-25 kcals/kg) Weight Used for Protein Requirements: [place] Weight in Kg Used for Protein Requirements: [...] Ringer's, 125 mL/hr, Last Rate: 125 mL/hr (06/06/23458) BMP: Recent Labs 06/05/23 00406/06/2332406/07/23222 NA 141 139 141 K 3.0* 3.2* 3.3* CL 106 107 107 CO2 22 21* 23 BUN <2* 2* 3* CREATININE 0.51* 0.52 0.53 GLUCOSE 89 83 86 CALCIUM 8.7 8.3* 8.4 MG 1.6 1.6 1.5* PHOS -- -- 3.5 Lab Results Component Value Date PHOS 3.5 06/07/2023 HEPATIC: Recent Labs 06/05/23 0049 06/06/2332406/07/23222 AST 131* 134* 157* ALT 166* 187* [...] TSH 3.605 12/14/2022 VITD25 <13 (L) 02/23/2023 [id number] 302 02/23/2023 FOLATE 3.3 12/14/2022 ZINC 84.4 [...] (405 lb) % Weight Change (Calculated): -8.1 [place] Body Weight (lbs) (Calculated): 126 lbs [place] Body Weight (Kg) (Calculated): 57 kg % [place] Body Weight (Calculated): 295.2 % BMI (kg/m2) [...] Laisha Villalba MS, RD, LD Contact: or Wishpot Chat (dial *[phone] from hospital phone) * Suze Cuba MD - 06/07/2023 9:11 AM EDT Images from the original note were not included. TPN Consult Name: Anne Marie Peterson : 1995(27 y.o.) Date: 06/07/23 CC: TPN HPI: 27 yo female s/p elective LRYGB 05/10/23. Developed nausea/vomiting/abdominal pain, [facility] where CT[facility] unremarkable but lipase >3000. [...] 1999 Dr. Memo Duke / Ernst Chavez [facility] - inguinal hernia LAP GASTRIC BYPASS/SANDRA-EN-Y (HISTORICAL) 05/10/2023 LRYGB - Dr. Shannan CROCKETT,CHOLECYSTECTOMY (HISTORICAL) 2009 Dr. Memo Duke / Ernst Chavez [facility] UPPER GASTROINTESTINAL ENDOSCOPY Allergies Allergen Reactions [...] min Stress: No Stress Concern Present (05/19/2023) [employer] [place] [employer] - Occupational Stress Questionnaire Feeling of Stress : Only a little Social Connections: Socially Isolated (05/19/2023) Social Connection and Isolation Panel [NHANES] Frequency of Communication with Friends and Family: More than three times a week Frequency of Social Gatherings with Friends and Family: More than three times a week Attends Islam Services: Never Active Member of Clubs or [...] Respiratory Therapy Supplies (CareTouch 2 CPAP Hose Milk Receiver Tank Truck) misc 10 cm h20 Historical Provider, VITAMIN [...] MG 1.6 1.6 1.5* Recent Labs 06/05/23 00406/06/2332406/07/23222 AST 131* 134* [...] elective laparoscopic sandra-en-Y procedure 05/10/23 -presented to [facility] 05/19/23 with abdominal pain, small area of [...] with primary service, cece gill, and family. documented in this [place] [address]-15-2024 Procedure note* Denise Hemphill RN - 06/07/2023 4:50 PM EDT PICC line pulled back 4 cm after CXR viewed with DR. Cuba. PICC is ok for use. [facility] [employer] Phone: 1(461) 196-365604-15-2024 Procedure note* Denise Hemphill RN - 06/07/2023 [...] lumen Catheter size: 5 Fr Lot #: [id number] Trimmed at (cm): 53 Inserted at (cm): 53 Ultrasound guidance: Yes Post-procedure: Post-procedure: Antimicrobial dressing applied and securement device Description/Findings: Flushes easily and blood returned Estimated blood loss: < 5 mL Specify complication(s): No apparent complications Follow-up chest x-ray: Ordered General Comments: PICC tip deep in RA on CXR, pulled back 4 cm. documented in this [facility]04-15-20[facility] Procedure note* Suze Cuba MD - 06/07/2023 [...] lumen Catheter size: 5 Fr Lot #: [id number] Trimmed at (cm): 53 Inserted at (cm): 53 Ultrasound guidance: Yes Post-procedure: Post-procedure: Antimicrobial dressing applied and securement device Description/Findings: Flushes easily and blood returned Estimated blood loss: < 5 mL Specify complication(s): No apparent complications Follow-up chest x-ray: Ordered General Comments: PICC tip deep in RA on CXR, pulled back 4 cm. [facility] HospitalTyqzuy54-57-6102 Consult note* Laisha Orly, RD - 06/07/2023 1:22 PM EDT Associated [...] loss Fluid Accumulation: No significant fluid accumulation Surgical Technology Instructor Strength: Not Performed HPI: Anne Marie Peterson [...] On: Kcal/kg Weight Used for Energy Requirements: [place] Weight for Energy Calculation (kg): 57 kg Total Energy Requirements (kcals/day): 3850-2808 (20-25 kcals/kg) Weight Used for Protein Requirements: [place] Weight in Kg Used for Protein Requirements: [...] ALKPHOS 59 53 63 CBC: Recent Labs 06/05/234806/06/23 0026 06/07/23 0223 WBC 7.2 6.5 6.6 HGB 10.7* 11.2* 10.8* HCT 35.4 36.7 35.8 MCV 73.8* 72.4* 73.4* PLT 423 430 398 Lab Results Component Value Date EFBP 65 01/12/2023 Lab Results Component Value Date LDLCALC 136 (H) 12/14/2022 HDL 30 (L) 12/14/2022 CHOL 184 12/14/2022 TRIG 91 12/14/2022 Lab Results Component Value Date TSH 3.605 12/14/2022 VITD25 <13 (L) 02/23/2023 [id number] 302 02/23/2023 FOLATE 3.3 12/14/2022 ZINC 84.4 [...] (405 lb) % Weight Change (Calculated): -8.1 [place] Body Weight (lbs) (Calculated): 126 lbs [place] Body Weight (Kg) (Calculated): 57 kg % [place] Body Weight (Calculated): 295.2 % BMI (kg/m2) [...] Laisha Villalba MS, RD, LD Contact: or [employer] (dial *[phone] from hospital phone) [facility] HospitalWnloju57-49-2721 Note* Care Coordination - Adrián Abrue RN - [...] Stay (Days): 1 GMLOS: No GMLOS Documented [facility] HospitalRoczgy84-79-6145 Note* Care Coordination - Adrián Abreu RN [...] Stay (Days): 1 GMLOS: No GMLOS Documented [facility] HospitalSvjzfa87-54-6837 Consult note* Suze Cuba MD - 06/07/2023 9:11 AM EDT Images from the original note were not included. TPN Consult Name: Anne Marie Peterson : 1995(27 y.o.) Date: 06/07/23 CC: TPN HPI: 27 yo female s/p elective LRYGB 05/10/23. Developed nausea/vomiting/abdominal pain, [facility] where CTAP unremarkable but lipase >3000. [...] 1999 Dr. Memo Duke / [facility] Chavez [facility] - inguinal hernia LAP GASTRIC BYPASS/SANDRA-EN-Y (HISTORICAL) 05/10/2023 LRYGB - Dr. Campbell LAP,CHOLECYSTECTOMY (HISTORICAL) 2009 Dr. Memo Duke / [facility] UPPER GASTROINTESTINAL ENDOSCOPY Allergies Allergen Reactions Nsaids [...] min Stress: No Stress Concern Present (05/19/2023) [employer] [place] [employer] - Occupational Stress Questionnaire Feeling of Stress : Only a little Social Connections: Socially Isolated (05/19/2023) Social Connection and Isolation Panel [NHANES] Frequency of Communication with Friends and Family: More than three times a week Frequency of Social Gatherings with Friends and Family: More than three times a week Attends Islam Services: Never Active Member of Clubs or [...] 2 tablets by mouth daily. 05/21/23 Historical ProviderMD Respiratory Therapy Supplies (CareTouch 2 CPAP Hose Milk Receiver Tank Truck) misc 10 cm h20 Historical Provider, VITAMIN [...] with primary service, cece gill, and family. [place] [id number] Note* Care Coordination - Adrián Abreu RN - 06/04/2023 11:39 AM EDT Care Managment Initial Assessment Date: 06/04/2023 Patient Name: Anne Marie Peterson : 1995 Patient Information Source of Information: Patient Cognition/Language: WFL - Within Functional Limits Permission given to speak with patient hostess party sales representative/caregiver as indicated: Yes Confirmation of Payer with patient/family: Yes Payer Name: [employer] MEDICAID Mitchell: No Confirmation of Primary Care Physician: Confirmed [...] Prescription Coverage: Yes Pharmacy Used: [facility] [place] Medication Management: Independent Transportation/Shopping: Independent Transportation Mode: [...] of discharge plan and agrees with plan. [id number] Note* Care Coordination - Adrián Abreu RN - 06/04/2023 11:39 AM EDT Care Managment Initial Assessment Date: 06/04/2023 Patient Name: Anne Marie Peterson : 1995 Patient Information Source of Information: Patient Cognition/Language: WFL - Within Functional Limits Permission given to speak with patient hostess party sales representative/caregiver as indicated: Yes Confirmation of Payer with patient/family: Yes Payer Name: [facility] MEDICAID : No Confirmation of Primary Care [...] Prescription Coverage: Yes Pharmacy Used: [facility] [place] Medication Management: Independent Transportation/Shopping: Independent Transportation Mode: [...] of discharge plan and agrees with plan. [id number] Emergency department Note* Osman Swartz RN - 06/03/2023 11:00 PM EDT SX at ERNESTO Swartz RN 06/03/232299 [id number] Emergency department Note* Osman Swartz RN - 06/03/2023 11:00 PM EDT SX at [facility]O Swartz RN 06/03/232299 * Sebastian Gibbs RN - 06/03/2023 10:02 PM EDT Pt has even and equal chest rise. Pt A+Ox4. Nabeel BRISENO talking to patient at this time. Sebastian Gibbs RN 06/03/232201 * Jolly Guajardo RN - 06/03/2023 9:19 PM EDT Pt transferring to [facility] by private car. Pt alright to [...] 2009 Dr. [facility] / [facility] UPPER GASTROINTESTINAL ENDOSCOPY CURRENT MEDICATIONS Previous [...] RESPIRATORY THERAPY SUPPLIES (CARETOUCH 2 CPAP HOSE DRUG ABUSE TREATMENT SPECIALIST) MISC 10 cm h20 VITAMIN D, CHOLECALCIFEROL, [...] min Stress: No Stress Concern Present (05/19/2023) [employer] - Occupational Stress Questionnaire Feeling of Stress : Only a little Social Connections: Socially Isolated (05/19/2023) Social Connection and Isolation Panel [NHANES] Frequency of Communication with Friends and Family: More than three times a week Frequency of Social Gatherings with Friends and Family: More than three times a week Attends Islam Services: Never Active Member of Clubs or [...] Culture. Procedure Abnormality Status --------- ------ Complete Urinalysis[[id number]] In process Please view results for these [...] acuteabnormalities although does want her transferred to [facility] emergency department for surgery evaluation and she [...] vomiting, unspecified vomiting type DISPOSITION Transfer To [facility] Ed 06/03/2023 09:08:38 PM PATIENT REFERRED TO: [...] Colorado MD (electronically signed) Emergency Medicine Provider [facility] Artemio Colorado MD 06/03/232118 * Nabeel Seymour PA-C - 06/03/2023 7:14 PM EDT Emergency Department Encounter [facility] EMERGENCY DEPT Patient: Anne Marie Peterson : 1995 Date of Evaluation: 06/03/2023 ED MARY Provider: Nabeel Seymour PA-C Patient seen independently within my scope of practice with an Emergency Medicine attending available for supervision. Chief Complaint Chief Complaint Patient presents with Vomiting [place] I was wearing a N95, Surgical mask for the entirety of this encounter. Anne Marie Peterson is a 27 y.o. female who presents to the emergency department for nausea and vomiting for 2 days. Patient has a history of gastric bypass surgery last month. Patient was transferred from [facility] for surgery evaluation. No fevers or chills. [...] 1999 Dr. Memo [facility] / [facility] - inguinal hernia LAP GASTRIC BYPASS/SANDRA-EN-Y (HISTORICAL) 05/10/2023 [facility] - Dr. Campbell LAP,CHOLECYSTECTOMY (HISTORICAL) 2009 Dr. [facility] / [facility] UPPER GASTROINTESTINAL ENDOSCOPY Social History Socioeconomic [...] min Stress: No Stress Concern Present (05/19/2023) [employer] - Occupational Stress Questionnaire Feeling of Stress : Only a little Social Connections: Socially Isolated (05/19/2023) Social Connection and Isolation Panel [NHANES] Frequency of Communication with Friends and Family: More than three times a week Frequency of Social Gatherings with Friends and Family: More than three times a week Attends Islam Services: Never Active Member of Clubs or [...] RESPIRATORY THERAPY SUPPLIES (CARETOUCH 2 CPAP HOSE DRUG ABUSE TREATMENT SPECIALIST) MISC 10 cm h20 VITAMIN D, CHOLECALCIFEROL, [...] gross facial drooping. No obvious neurologic deficits. Surgical Technology Instructor strength symmetrical. Moves all 4 extremities spontaneously. [...] Department Physician in the absence of a nut roaster helper. see their note for interpretation of EKG. EMERGENCY DEPARTMENT COURSE and DIFFERENTIAL DIAGNOSIS/MDM: External Records Review: Reviewed workup at [place] ED. Social Determinants of Health: none. Anne Marie Peterson is a 27 y.o. female who presented to the emergency department for left-sided abdominal pain and nausea with vomiting. Patient was transferred from [place] ED for general surgery evaluation. Workup started at [place] ED. Patient was given IV fluids and [...] MEDICATIONS: New Prescriptions No medications on file @[facility](7943,[id number]:LAST:1)@ (Please note: Portions of this note were [...] blood in vomit today. documented [facility] this [facility]04[facility] History and physical note* Christy Lopez MD [...] HERNIA REPAIR 1999 Dr. Memo [facility] / [facility] - inguinal hernia LAP GASTRIC BYPASS/SANDRA-EN-Y (HISTORICAL) 05/10/2023 [facility] - Dr. Campbell LAP,CHOLECYSTECTOMY (HISTORICAL) 2009 Dr. Memo [facility] / [facility] UPPER GASTROINTESTINAL ENDOSCOPY Medications Prior toAdmission: No [...] mg by mouth daily.) [] nystatin (Mycostatin) 456430 UNIT/ML suspension Swish and swallow 5 mL (500,000 Units) 3 times daily for 10 days. omeprazole (PriLOSEC) [address] capsule Take 1 capsule (20 mg) by mouth daily. Do not crush or chew. Pediatric Multivitamins-Iron (FLINTSTONES PLUS IRON PO) Take 2 tablets by mouth daily. Respiratory Therapy Supplies (CareTouch 2 CPAP Hose Milk Receiver Tank Truck) misc 10 cm h20 VITAMIN D, CHOLECALCIFEROL, [...] min Stress: No Stress Concern Present (05/19/2023) [employer] - Occupational Stress Questionnaire Feeling of Stress : Only a little Social Connections: Socially Isolated (05/19/2023) Social Connection and Isolation Panel [NHANES] Frequency of Communication with Friends and Family: More than three times a week Frequency of Social Gatherings with Friends and Family: More than three times a week Attends Islam Services: Never Active Member of Clubs or [...] Patient Name: ANNE MARIE PETERSON : 1995 [facility]#: [id number] Exam Date/Time: 06/03/2023 21:03 Procedure: CT ABDOMEN [...] lipase -DVT ppx: SCDs Discussed with , system controller for Dr Campbell Disclaimers: INFORMED CONSENT: The [...] This note may have been dictated using GadgetATM Practice Edition 2.6 and/or [employer] Voice Recognition Feature. The document was proofread; however, unrecognized voice recognition conventional underwriter errors may be present. -2 Department of General Surgery #[id number] Associated attestation - Memo Campbell MD - 06/04/2023 7:06 PM EDT Images from the original note were not included. [facility] - Surgery [facility] Physicians Surgery Patient Name: Anne Marie [...] 0.55 GLUCOSE 103* 99 Hepatic: Recent Labs 06/03/23194724 0225 ALKPHOS 65 55 ALT 135* 127* AST [...] All of the patient's questions were answered. [facility] HospitalChafgi86-94-3029 History and physical note* Christy Lopez MD [...] REPA[facility] 1999 [facility] LAP GASTRIC BYPASS/SANDRA-EN-Y (HISTORICAL) 05/10/2023 [facility] - Dr. Shannan CROCKETT,CHOLECYSTECTOMY (HISTORICAL) 2009 [facility] UPPER GASTROINTESTINAL ENDOSCOPY Medications Prior toAdmission: [...] mg by mouth daily.) [] nystatin (Mycostatin) 162017 UNIT/ML suspension Swish and swallow 5 mL (500,000 Units) 3 times daily for 10 days. omeprazole (PriLOSEC) [address] capsule Take 1 capsule (20 mg) by mouth daily. Do not crush or chew. Pediatric Multivitamins-Iron (FLINTSTONES PLUS IRON PO) Take 2 tablets by mouth daily. Respiratory Therapy Supplies (CareTouch 2 CPAP Hose Milk Receiver Tank Truck) misc 10 cm h20 VITAMIN D, CHOLECALCIFEROL, [...] min Stress: No Stress Concern Present (05/19/2023) [employer] - Occupational Stress Questionnaire Feeling of Stress : Only a little Social Connections: Socially Isolated (05/19/2023) Social Connection and Isolation Panel [NHANES] Frequency of Communication with Friends and Family: More than three times a week Frequency of Social Gatherings with Friends and Family: More than three times a week Attends Islam Services: Never Active Member of Clubs or [...] lipase -DVT ppx: SCDs Discussed with , system controller for Dr Campbell Disclaimers: INFORMED CONSENT: The [...] This note may have been dictated using GadgetATM Practice Edition 2.6 and/or [employer] Voice Recognition Feature. The document was proofread; however, unrecognized voice recognition conventional underwriter errors may be present. -2 Department of General Surgery #[id number] Associated attestation - Memo Campbell MD - 06/04/2023 7:06 PM EDT Images from the original note were not included. [facility] - Surgery [facility] Physicians Surgery Patient Name: Anne Marie [...] patient's questions were answered. documented in this [facility]04-11-[facility] Emergency department Note* Sebastian Gibbs RN - 06/03/2023 10:02 PM EDT Pt has even and equal chest rise. Pt A+Ox4. Nabeel BRISENO talking to patient at this time. Sebastian Gibbs RN 06/03/232201 [address]Dtsbds98-09-9810 Emergency department Note* Jolly Guajardo RN - 06/03/2023 9:19 PM EDT Pt transferring to [facility] by private car. Pt alright to leave IV in per Dr. Colorado. Jolly Guajardo RN 06/03/232119 [place] [id number] Emergency department Triage note* Jolly Guajardo RN - 06/03/2023 7:14 PM EDT Pt presents to ED c/o vomiting x2 days. Pt had gastric bypass on 06/09 . Pt endorses some blood in vomit today. [address]Hbbmbv77-90-1304 Physician Emergency department Note* Artemio Colorado MD [...] HERNIA REPAIR 1999 Dr. Memo [facility] / [facility] - inguinal hernia LAP GASTRIC BYPASS/SANDRA-EN-Y (HISTORICAL) 05/10/2023 [facility] - Dr. Campbell LAP,CHOLECYSTECTOMY (HISTORICAL) 2009 Dr. Memo [facility] / [facility] UPPER GASTROINTESTINAL ENDOSCOPY CURRENT MEDICATIONS Previous Medications [...] RESPIRATORY THERAPY SUPPLIES (CARETOUCH 2 CPAP HOSE DRUG ABUSE TREATMENT SPECIALIST) MISC 10 cm h20 VITAMIN D, CHOLECALCIFEROL, [...] min Stress: No Stress Concern Present (05/19/2023) [employer] - Occupational Stress Questionnaire Feeling of Stress : Only a little Social Connections: Socially Isolated (05/19/2023) Social Connection and Isolation Panel [NHANES] Frequency of Communication with Friends and Family: More than three times a week Frequency of Social Gatherings with Friends and Family: More than three times a week Attends Islam Services: Never Active Member of Clubs or [...] Culture. Procedure Abnormality Status --------- ------ Complete Urinalysis[[id number]] In process Please view results for these tests on the individual orders. COMPLETE URINALYSIS All other labs were within normal range or not returned as of this dictation. EMERGENCY DEPARTMENT COURSE and DIFFERENTIAL DIAGNOSIS/MDM: Vitals: Vitals: 06/03/231917 BP: (!) 135/91 Pulse: 75 Resp: 19 [...] acuteabnormalities although does want her transferred to [facility] emergency department for surgery evaluation and she [...] vomiting, unspecified vomiting type DISPOSITION Transfer To [facility] Ed 06/03/2023 09:08:38 PM PATIENT REFERRED TO: [...] MD (electronically signed) Emergency Medicine Provider [facility] Artemio Colorado MD 06/03/232118 [facility] HospitalQngmop67-74-1278 Physician Emergency department Note* Nabeel Seymour PA-C - 06/03/2023 7:14 PM EDT Emergency Department Encounter [facility] EMERGENCY DEPT Patient: Anne Marie Peterson : 1995 Date of Evaluation: 06/03/2023 ED MARY Provider: Nabeel Seymour PA-C Patient seen independently within my scope of practice with an Emergency Medicine attending available for supervision. Chief Complaint Chief Complaint Patient presents with Vomiting [place] I was wearing a N95, Surgical mask for the entirety of this encounter. Anne Marie Peterson is a 27 y.o. female who presents to the emergency department for nausea and vomiting for 2 days. Patient has a history of gastric bypass surgery last month. Patient was transferred from [place] ED for surgery evaluation. No fevers or [...] 1999 Dr. Memo [facility] / [facility] - inguinal hernia LAP GASTRIC BYPASS/SANDRA-EN-Y (HISTORICAL) 05/10/2023 [facility] - Dr. Campbell LAP,CHOLECYSTECTOMY (HISTORICAL) 2009 Dr. Memo [facility] / [facility] UPPER GASTROINTESTINAL ENDOSCOPY Social History Socioeconomic [...] min Stress: No Stress Concern Present (05/19/2023) [employer] - Occupational Stress Questionnaire Feeling of Stress : Only a little Social Connections: Socially Isolated (05/19/2023) Social Connection and Isolation Panel [NHANES] Frequency of Communication with Friends and Family: More than three times a week Frequency of Social Gatherings with Friends and Family: More than three times a week Attends Islam Services: Never Active Member of Clubs or [...] RESPIRATORY THERAPY SUPPLIES (CARETOUCH 2 CPAP HOSE DRUG ABUSE TREATMENT SPECIALIST) MISC 10 cm h20 VITAMIN D, CHOLECALCIFEROL, [...] gross facial drooping. No obvious neurologic deficits. Surgical Technology Instructor strength symmetrical. Moves all 4 extremities spontaneously. [...] Department Physician in the absence of a nut roaster helper. see their note for interpretation of EKG. EMERGENCY DEPARTMENT COURSE and DIFFERENTIAL DIAGNOSIS/MDM: External Records Review: Reviewed workup at [place] ED. Social Determinants of Health: none. Anne Marie Peterson is a 27 y.o. female who presented to the emergency department for left-sided abdominal pain and nausea with vomiting. Patient was transferred from [place] ED for general surgery evaluation. Workup started at [place] ED. Patient was given IV fluids and [...] MEDICATIONS: New Prescriptions No medications on file @[facility](7921,[id number]:LAST:1)@ (Please note: Portions of this note were completed with a voice recognition program. Efforts were made to edit the dictations but occasionally words and phrases are mis-transcribed.) Form [id number].[id number] Nabeel Seymour PA-C [employer] Nabeel Seymour PA-C 06/04/23 0701 [facility] [employer] Work Phone: [phone]) 693-165904-11-2024 History of Present illness Narrative* SUZANNA Lyons - 06/03/2023 9:30 AM EDT Patient here for rehydration and received 2 L NaCl. She tolerated well and vitals stable. See muleser notes for further documentation. documented in this [place] [address]-11-2024 History of Present illness Narrative* SUZANNA Lyons - 06/03/2023 9:30 AM EDT Patient here for rehydration and received 2 L NaCl. She tolerated well and vitals stable. See muleser notes for further documentation. documented in this [place] [address]-11-2024 History of Present illness Narrative* Miley Moise PA-C - 06/03/2023 9:30 AM EDT Patient here for rehydration and received 2 L NaCl. She tolerated well and vitals stable. See muleser notes for further documentation. documented in this [place] [address]-04-2024 History of Present illness Narrative* Memo Campbell MD - 05/27/2023 8:25 AM EDT Images from the original note were not included. [facility] SURGICAL PROGRAM Patient: Anne [...] Req. Please [place]: [place] [address] - [phone] And if not done at a [facility] Facility, please send to: [facility] [place] - [address] [place] [address], [address] [facility], [address] Patient Name: Anne Marie Peterson - 1995 Order Created by : Rosa Kohli Standing Status: Future Number of Occurrences: 1 Standing Expiration Date: 05/25/2024 Folate These orders are set for an approximate date - they can be drawn up to 3 months prior to the Expected Date on this Req. Please send results to: [place] [address] - [phone] And if not done at a [facility] Facility, please send to: [address], [address] Patient Name: Anne Marie Tran 1995 Order Created by : Rosa Kohli Standing Status: Future Number of Occurrences: 1 Standing Expiration Date: 05/25/2024 Iron These orders are set for an approximate date - they can be drawn up to 3 months prior to the Expected Date on this Req. Please send results to: Xenia Gomez [facility] [place] [address] - [phone] And if not done at a [facility] Facility, please send to: [address], [address] Patient Name: Anne Marie Tran 1995 Order Created by : Rosa Kohli Standing Status: Future Number of Occurrences: 1 Standing Expiration Date: 05/25/2024 Ferritin These orders are set for an approximate date - they can be drawn up to 3 months prior to the Expected Date on this Req. Please send results to: [place] [address] - [phone] And if not done at a [facility] Facility, please send to: [address], [address] Patient Name: Anne Marie Tran 1995 Order Created by : Rosa Kohli Standing Status: Future Number of Occurrences: 1 Standing Expiration Date: 05/25/2024 Magnesium These orders are set for an approximate date - they can be drawn up to 3 months prior to the Expected Date on this Req. Please send results to: X[place] [address] - [phone] And if not done at a [facility] Facility, please send to: [address], [address] Patient Name: Anne Marie Tran 1995 Order Created by : Rosa Kohli Standing Status: Future Number of Occurrences: 1 Standing Expiration Date: 05/25/2024 Vitamin B12 These orders are set for an approximate date - they can be drawn up to 3 months prior to the Expected Date on this Req. Please send results to: Xenia Gomez [facility] [place] [address] - [phone] And if not done at a [facility] Facility, please send to: [address], [address] Patient Name: Anne Marie Tran 1995 Order Created by : Rosa Kohli Standing Status: Future Number of Occurrences: 1 Standing Expiration Date: 05/25/2024 Comprehensive metabolic panel These orders are set for an approximate date - they can be drawn up to 3 months prior to the Expected Date on this Req. Please send results to: [place] [address] - [phone] And if not done at a [facility] Facility, please send to: [address], [address] Patient Name: Anne Marie Tran 1995 Order Created by : Rosa Kohli Standing Status: Future Number of Occurrences: 1 Standing Expiration Date: 05/25/2024 CBC These orders are set for an approximate date - they can be drawn up to 3 months prior to the Expected Date on this Req. Please send results to: [place] [address] - [phone] And if not done at a [facility] Facility, please send to: [address], [address] Patient Name: Anne Marie Tran 1995 Order [...] mouth daily.) 90 tablet 3 nystatin (Mycostatin) 249163 UNIT/ML suspension Swish and swallow 5 mL (500,000 Units) 3 times daily for 10 days. 150 mL 0 omeprazole (PriLOSEC) [address] capsule Take 1 capsule (20 mg) by mouth daily. Do not crush or chew.90 capsule 1 Pediatric Multivitamins-Iron (FLINTSTONES PLUS IRON PO) Take by mouth. Respiratory Therapy Supplies (CareTouch 2 CPAP Hose Milk Receiver Tank Truck) misc 10 cm h20 Cyanocobalamin (Vitamin B-12) [...] (25 mg) by mouth daily. NYSTATIN (MYCOSTATIN) 498747 UNIT/ML SUSPENSION Swish and swallow 5 mL (500,000 Units) 3 times daily for 10 days. OMEPRAZOLE (PRILOSEC) [address] CAPSULE Take 1 capsule (20 mg) by mouth daily. Do not crush or chew. PEDIATRIC MULTIVITAMINS-IRON (FLINTSTONES PLUS IRON PO) Take by mouth. RESPIRATORY THERAPY SUPPLIES (CARETOUCH 2 CPAP HOSE DRUG ABUSE TREATMENT SPECIALIST) MISC 10 cm h20 VITAMIN D, CHOLECALCIFEROL, [...] Flowers MA - 05/27/2023 8:25 AM EDT [facility] POST WEIGHT LOSS SURGERY [...] Weight Metrics: Date of Initial Surgical Consultation: @FLOWLAST(8002)@ Initial Weight: @FLOWLAST([id number])@ Initial BMI: @FLOWLAST(954355007)@ [place] Body Weight: @FLOWLAST(533685817)@ Highest Pre-Op Weight: @FLOWLAST([id number])@ Highest Pre-Op BMI: @FLOWLAST(343100558)@ Excess Body Weight: @FLOWLAST([id number])@ Test 12.15.22 : Initial Surgical Consultation Post-op Weight Metrics: %EBWL: % EBWL: 11% Weight Change Since Last Visit: Weight Change: -18.8 lbs Weight Change from Highest Pre-op Weight: Total Weight Change: -30.6 lbs Completed by: Krystal Flowers MA * Kimberley Frank RD - 05/27/2023 8:25 AM EDT [facility] 1 WEEK VISIT POST-OPERATIVE DIETITIAN Date: [...] by: Kimberley Frank RD documented in this encounterSACMC Healthcare SystemHjebjl30-03-4210 Telephone encounter Note* Telephone Encounter - Zully Anton RN - 05/25/2023 2:12 PM EDT Patient discharged to home 05/21/23. Follow up with JACINTA on 05/27/23. [place] [id number] Miscellaneous Notes* Telephone Encounter - Zully Anton RN - 05/25/2023 2:12 PM EDT Patient discharged to home 05/21/23. Follow up with JACINTA on 05/27/23. * Telephone Encounter - Zully Anton RN - 05/20/2023 7:41 AM EDT [facility]AC[facility] 05/10/23 Patient presented to ED on 05/19/23 for epigastric pain, chills and sensation that her heart is racing. Had been previously seen in [place] ED on 05/18/23 for abdominal and sternal pain and was senthome. CT showed fluid about the liver into the pelvis, suspicious for blood products and hemoperitoneum. Patient currently admitted for observation, will continue to monitor. * Telephone Encounter - SUZANNA Lyons - 05/20/2023 7:24 AM EDT Bella- pt currently admitted- please change appt to next week, thanks documented in this encounterSACMC Healthcare SystemMuczds55-38-4448 Note* Care Coordination - Vilma Weller RN - 05/21/2023 12:50 PM EDT Pt to be discharged to home with fiance. She denies any needs from tcc. [facility] HospitalEicteq53-96-7184 Note* Care Coordination - Vilma Weller RN - 05/21/2023 12:50 PM EDT Pt to be discharged to home with fiance. She denies any needs from tcc. [facility] HospitalFssrjt66-95-2972 Miscellaneous Notes* Care Coordination - Vilma Weller [...] Limits Permission given to speak with patient hostess party sales representative/caregiver as indicated: Confirmation of Payer with patient/family: Yes Payer Name: [facility] Medicaid Mitchell: No Confirmation of Primary Care Physician: Confirmed [...] follow. Vilma Weller RN documented in this [facility]03-29-2024 Nurse Note* Odette Burleson RN - 05/21/2023 12:48 PM EDT Discharge instructions reviewed with the patient. Patient verbalized understanding of the instructions. Medications were delivered to bedside. All personal belongings were sent home with the patient and patient was transported by a friend. [facility] HospitalYbbtqe56-77-8714 Nurse Note* Odette Burleson RN - 05/21/2023 12:48 PM EDT Discharge instructions reviewed with the patient. Patient verbalized understanding of the instructions. Medications were delivered to bedside. All personal belongings were sent home with the patient and patient was transported by a friend. documented in this [address]29-2024 Hospital course Narrative* Memo Campbell MD - [...] a 27 y.o. female who presented to [facility] on 05/19/2023 with abdominal pain and find [...] Medication List START taking these medications nystatin [id number] UNIT/ML suspension Commonly known as: Mycostatin Swish [...] taking these medications CareTouch 2 CPAP Hose Milk Receiver Tank Truck misc colestipol 1 g tablet Commonly known [...] ondansetron 4 MG tablet Commonly known as: Jeaneth ASK your doctor about these medications ferrous sulfate 325 (65 Fe) MG tablet Take 1 tablet (325 mg) by mouth 2 times daily. Where to Get Your Medications These medications were sent to [facility] [address] [facility] [address] Hours: Wednesday to Wednesday 10 am to 6 pm oxyCODONE-acetaminophen 5-325 MG tablet These medications were sent to [address] [address] nystatin [id number] UNIT/ML suspension DIET: Adult diet Bariatric Pureed ACTIVITY: No heavy lifting. up with assist WOUND CARE: keep wound clean and dry DISPOSITION: Home FACILITY/HOME CARE AGENCY NAME: Follow up with: Jeannine Worthy MD in 1-2 weeks PCP: Xenia Lane in 1-2 weeks DISCHARGE TIME: < 30 minutes SIGNED: Christy Lopez MD 05/21/2023, 11:10 AM documented in this [facility]03-29-2024 Hospital Discharge instructions* Discharge Instructions* Kimberley Frank [...] MS, RD, CSSD, LD documented in this [facility]03-29-2024 History of Present illness Narrative* Zully Anton [...] Surgery PGY-1 05/21/23 7:35 AM Pager # [phone] This note may have been dictated using [employer] 911 Medical Practice Edition 2.6 and/or [employer] Voice Recognition Feature. The document was proofread; however, unrecognized voice recognition conventional underwriter errors may be present. Associated attestation - Memo Campbell MD - 05/21/2023 10:05 AM EDT Images from the original note were not included. [facility] - Surgery [facility] Physicians Surgery Patient Name: Anne Marie Peterson Date: 05/21/23 No acute overnight, feels well, no symptoms, [...] the patient's questions were answered. * Henny Mcmanus RD - 05/20/2023 4:43 PM EDT Nutrition Note: Received nursing referral for weight loss. Patient s/p LAP GASTRIC BYPASS/SANDRA-EN-Y on 05/10/23. Patient currently ordered full liquid diet which patient was consuming CANTEEN MANAGER and tolerating. Suggest continue with full liquid diet and advance to pureed when able. Patient reports probable discharge tomorrow. RD sign off to public health dietitian to continue to monitor. Henny Mcmanus MS RD Clinical Dietitian * Zully Anton RN - 05/20/2023 9:41 AM EDT Bariatric Combine Inspector Note Procedure: laparoscopic LRYGB 04/23/2023 Begin Bariatric [...] 100 mL/hr, Last Rate: 100 mL/hr (05/20/23 0034) PRN Meds:PRN medications: HYDROmorphone OR HYDROmorphone, naloxone, ondansetron ODT OR ondansetron ASSESSMENT AND PLAN: 27 y.o. female s/p RYGB 05/08 presenting with hemoperitoneum - Trend hemoglobin - Diet: will discuss restarting regular diet - Pain and nausea control PRN - OOBAT - DVT ppx with SCD's Will discuss with Dr. Shannan Espinoza MD General Surgery PGY-1 05/20/23 7:53 AM Pager # [phone] This note may have been dictated using [employer] 911 Medical Practice Edition 2.6 and/or [employer] Voice Recognition Feature. The document was proofread; however, unrecognized voice recognition conventional underwriter errors may be present. Associated attestation - Memo Campbell MD - 05/20/2023 4:37 PM EDT Images from the original note were not included. [facility] - Surgery [facility] Physicians Surgery Patient Name: Anne Marie [...] patient's questions were answered. documented in this [facility]03-28-2024 Note* Care Coordination - Vilma Weller RN - 05/20/2023 9:54 AM EDT Care Managment Initial Assessment Date: 05/20/2023 Patient Name: Anne Marie Peterson : 1995 Patient Information Source of Information: Patient Cognition/Language: WFL - Within Functional Limits Permission given to speak with patient hostess party sales representative/caregiver as indicated: Confirmation of Payer with patient/family: Yes Payer Name: [facility] Medicaid : No Confirmation of Primary [...] will continue to follow. Vilma Weller RN [facility] [id number] Note* Care Coordination - Vilma Weller RN - 05/20/2023 9:54 AM EDT Care Managment Initial Assessment Date: 05/20/2023 Patient Name: Anne Marie Peterson : 1995 Patient Information Source of Information: Patient Cognition/Language: WFL - Within Functional Limits Permission given to speak with patient hostess party sales representative/caregiver as indicated: Confirmation of Payer with patient/family: Yes Payer Name: [facility] Medicaid : No Confirmation of Primary [...] continue to follow. Vilma Weller RN [facility] [id number] Telephone encounter Note* Telephone Encounter - Zully Anton RN - 05/20/2023 7:41 AM EDT JZ LRYGB 05/10/23 Patient presented to ED on 05/19/23 for epigastric pain, chills and sensation that her heart is racing. Had been previously seen in [place] ED on 05/18/23 for abdominal and sternal pain and was senthome. CT showed fluid about the liver into the pelvis, suspicious for blood products and hemoperitoneum. Patient currently admitted for observation, will continue to monitor. [facility] [id number] Miscellaneous Notes* Telephone Encounter - Zully Anton RN - 05/20/2023 7:41 AM EDT JZ LRYGB 05/10/23 Patient presented to ED on 05/19/23 for epigastric pain, chills and sensation that her heart is racing. Had been previously seen in [place] ED on 05/18/23 for abdominal and sternal pain and was senthome. CT showed fluid about the liver into the pelvis, suspicious for blood products and hemoperitoneum. Patient currently admitted for observation, will continue to monitor. * Telephone Encounter - SUZANNA Lyons - 05/20/2023 7:24 AM EDT [place]- pt currently admitted- please change appt to next week, thanks documented in this encounterSACMC Healthcare SystemIadsai07-30-8291 Telephone encounter Note* Telephone Encounter - SUZANNA Lyons - 05/20/2023 7:24 AM EDT [place]- pt currently admitted- please change appt to next week, thanks [facility] [id number] Emergency department Triage note* Danyelle Lu RN - 05/19/2023 10:11 PM EDT Pt presents to ED by EMS as ED to ED transfer for surgical c/s. Pt went to [place] ED for c/o epigastric abdominal that is [...] to confirm a fatty liver. CT at [place] shows perihepatic bleeding. Pt is A&O4, NAD, VSS [place] [id number] Emergency department Note* Danyelle Lu RN - 05/19/2023 10:11 PM EDT Pt presents to ED by EMS as ED to ED transfer for surgical c/s. Pt went to [place] ED for c/o epigastric abdominal that is [...] to confirm a fatty liver. CT at [place] shows perihepatic bleeding. Pt is A&O4, NAD, VSS * Lucy Castano RN - 05/19/2023 8:58 PM EDT Report called to KATALINA Saldivar at [facility] ED [facility] ETA 2129 Lucy Castano RN 05/19/232058 * Helen Mccarthy RN - 05/19/2023 5:57 PM EDT Patient ambulatory to the restroom at this time using cane and S/O at side. Patient tolerated well,maintaining steady gait. Urine specimen to be collected. Helen Mccarthy RN 05/19/231756 * Helen Mccarthy RN - 05/19/2023 5:43 PM EDT This RN spoke with patient at this time per manufacturing tech. Patient reports no chance of and reports a negative test at another facility yesterday. Helen Mccarthy RN 05/19/23 6114 * Shauna Hamilton DO - 05/19/2023 1:55 [...] on 05/10/[address] Campbell at [facility]. States she was seen at outside hospital [...] 1999 Dr. Memo Duke / [facility] - inguinal hernia LAP GASTRIC BYPASS/SANDRA-EN-Y (HISTORICAL) 05/10/2023 LRYGB - Dr. Campbell LAP,CHOLECYSTECTOMY (HISTORICAL) 2009 [facility] UPPER GASTROINTESTINAL ENDOSCOPY CURRENT MEDICATIONS Previous [...] RESPIRATORY THERAPY SUPPLIES (CARETOUCH 2 CPAP HOSE DRUG ABUSE TREATMENT SPECIALIST) MISC 10 cm h20 VITAMIN D, CHOLECALCIFEROL, [...] Phys[facility] (Per Emergency Physician): Interpretation per the [...] Culture. Procedure Abnormality Status --------- ------ Complete Urinalysis[[id number]] Abnormal Final result Please view results for [...] Morbid obesity with BMI of 60.0-69.9, adult ([facility]) EMERGENCY DEPARTMENT COURSE and DIFFERENTIAL DIAGNOSIS/MDM: Vitals: [...] Morbid obesity with BMI of 60.0-69.9, adult ([facility]) External records reviewed: Inpatient notes records reviewed [...] around the liver Discussions with other clinicians: Rib Matcher And Fitter spoke with the radiologist who relayed CT report to me. Spoke with Dr. Campbell patient surgeon who recommended transfer to [facility] ED for further evaluation by general surgery. [...] hemoglobin stable at 10.1. Will transfer to [facility] ED for evaluation by surgery. CRITICAL CARE TIME FINAL IMPRESSION 1. Hemoperitoneum DISPOSITION Transfer To [facility] 05/19/2023 07:40:02 PM PATIENT REFERRED TO: [...] Shauna Hamilton DO 05/19/231940 documented in this [facility]03-27-2024 History and physical note* Aurelia Rich MD [...] abdominal pain, diaphoresis, and dizziness.She presented to [place] ED and a CT A/P and CTA [...] HERNIA [facility]PA[facility] 1999 [facility] hernia LAP GASTRIC BYPASS/SANDRA-EN-Y (HISTORICAL) 05/10/2023 LRYGB - Dr. Campbell LAP,CHOLECYSTECTOMY (HISTORICAL) 2009 Dr. Memo Duke / [facility] UPPER GASTROINTESTINAL ENDOSCOPY Medications Prior to Admission: [...] Respiratory Therapy Supplies (CareTouch 2 CPAP Hose Milk Receiver Tank Truck) misc 10 cm h20 VITAMIN D, CHOLECALCIFEROL, [...] Patient Name: ANNE MARIE PETERSON : 1995 [id number] Exam Date/Time: 05/19/2023 18:37 Procedure: CT ABDOMEN [...] labs Patient discussed with attending, Dr. Worthy system controller for Dr. Shannan Rich MD General Surgery PGY-3 Pager # [phone] [facility] HospitalPykpxe06-91-8550 History and physical note* Aurelia Rich MD [...] abdominal pain, diaphoresis, and dizziness.She presented to [place] ED and a CT A/P and CTA [...] HERNIA REPAIR 1999 [facility] - inguinal hernia LAP GASTRIC BYPASS/SANDRA-EN-Y (HISTORICAL) 05/10/2023 LRYGB - Dr. Campbell LAP,CHOLECYSTECTOMY (HISTORICAL) 2009 [facility]. [facility] UPPER GASTROINTESTINAL ENDOSCOPY Medications Prior to [...] Respiratory Therapy Supplies (CareTouch 2 CPAP Hose Milk Receiver Tank Truck) misc 10 cm h20 VITAMIN D, CHOLECALCIFEROL, [...] for agitation and confusion. PHYSICAL EXAM: Vitals: 05/19/232056 BP: 119/76 Pulse: 87 Resp: 18 Temp: [...] ANNE MARIE PETERSON : 1995 Exam Date/Time: 05/19/2023 18:37 Procedure: CT ABDOMEN [...] labs Patient discussed with attending, Dr. Worthy system controller for Dr. Shannan Rich MD General Surgery PGY-3 Pager # [phone] documented in this [facility]03-27-2024 Emergency department Note* Lucy Castano RN - 05/19/2023 8:58 PM EDT Report called to KATALINA Saldivar at [facility] ED [facility] ETA 2129 Lucy Castano RN 05/19/232058 [address]Rupxmv11-22-4951 Emergency department Note* Helen Mccarthy RN - 05/19/2023 5:57 PM EDT Patient ambulatory to the restroom at this time using cane and S/O at side. Patient tolerated well,maintaining steady gait. Urine specimen to be collected. Helen Mccarthy RN 05/19/23 2082 [address]Qfgeop61-27-8366 Emergency department Note* Helen Mccarthy RN - 05/19/2023 5:43 PM EDT This RN spoke with patient at this time per manufacturing tech. Patient reports no chance of and reports a negative test at another facility yesterday. Helen Mccarthy RN 05/19/23 1715 [id number] Physician Emergency department Note* Shauna Hamilton DO [...] on 05/10/[address] Campbell at [facility]. States she was seen at outside hospital [...] 1999 Dr. Memo Duke / [facility] - inguinal hernia LAP GASTRIC BYPASS/SANDRA-EN-Y (HISTORICAL) 05/10/2023 LRYGB - Dr. Campbell LAP,CHOLECYSTECTOMY (HISTORICAL) 2009 [facility]. [facility] UPPER GASTROINTESTINAL ENDOSCOPY CURRENT MEDICATIONS Previous [...] RESPIRATORY THERAPY SUPPLIES (CARETOUCH 2 CPAP HOSE DRUG ABUSE TREATMENT SPECIALIST) MISC 10 cm h20 VITAMIN D, CHOLECALCIFEROL, [...] Culture. Procedure Abnormality Status --------- ------ Complete Urinalysis[[id number]] Abnormal Final result Please view results for [...] Morbid obesity with BMI of 60.0-69.9, adult ([facility]) EMERGENCY DEPARTMENT COURSE and DIFFERENTIAL DIAGNOSIS/MDM: Vitals: [...] Morbid obesity with BMI of 60.0-69.9, adult ([facility]) External records reviewed: Inpatient notes records reviewed [...] around the liver Discussions with other clinicians: Rib Matcher And Fitter spoke with the radiologist who relayed CT report to me. Spoke with Dr. Campbell patient surgeon who recommended transfer to [facility] ED for further evaluation by general surgery. [...] hemoglobin stable at 10.1. Will transfer to [facility] ED for evaluation by surgery. CRITICAL CARE TIME FINAL IMPRESSION 1. Hemoperitoneum DISPOSITION Transfer To [facility] 05/19/2023 07:40:02 PM PATIENT REFERRED TO: [...] Emergency Medicine Provider Shauna Hamilton DO 05/19/231940 [facility] HospitalMfrjfs17-41-9820 Telephone encounter Note* Telephone Encounter - Balwinder Lam RN - 05/18/2023 12:25 PM EDT S: Patient spoke with CAC nurse regarding dizziness B: Onset of symptoms/concern 05/10/23 gastric bypass A: Pt c/o cold sweats, dizzy, in pain, light headed. Medical records reviewed. Pt went to [facility] ED in [place] today. Blood pressure was extremely low there [...] standing, or poor fluid intake.) Protocols used: [id number] [facility] HospitalLmhesm01-80-2197 Miscellaneous Notes* Telephone Encounter - Balwinder Lam RN - 05/18/2023 12:25 PM EDT S: Patient spoke with CAC nurse regarding dizziness B: Onset of symptoms/concern 05/10/23 gastric bypass A: Pt c/o cold sweats, dizzy, in pain, light headed. Medical records reviewed. Pt went to [facility] ED in [place] today. Blood pressure was extremely low there [...] standing, or poor fluid intake.) Protocols used: [id number] documented in this encounterSACMC Healthcare SystemSdlggo78-42-0474 Telephone encounter Note* Telephone Encounter - SUZANNA Lyons - 05/12/2023 3:23 PM EDT tamara Tirado [facility] HospitalFnuwdf82-31-2858 Miscellaneous Notes* Telephone Encounter - SUZANNA Lyons [...] information and when and how to contact [facility] with the patient who verbalized understanding. No other questions or concerns at this time. * Telephone Encounter - Balwinder Weeks RN - 05/12/2023 10:47 AM EDT DOS 05/10/23 LRYGB JZ Last OV-prior to surgery Will route to [facility] for follow up * Telephone Encounter - Marge Flowers RN - 05/12/2023 9:09 AM EDT S: Patient spoke with [facility] nurse regarding post op concern B: [...] call back with new or worsening symptoms. SUGEY TE sent to office for review and follow up. Please advise on above symptoms and if OV is needed. Reason for Disposition Caller has NON-URGENT question and triager unable to answer question Protocols used: Post-Op Symptoms and Wmctpbuoh-ZIJBY-MD documented in this encounterSACMC Healthcare SystemVpcjbg21-98-4095 Telephone encounter Note* Telephone Encounter - Zully [...] information and when and how to contact [facility] with the patient who verbalized understanding. No other questions or concerns at this time. [facility] HospitalZihufy57-29-6012 Telephone encounter Note* Telephone Encounter - Balwinder Weeks RN - 05/12/2023 10:47 AM EDT DOS 05/10/23 LRYGB JZ Last OV-prior to surgery Will route to [facility] for follow up [facility] HospitalQwiwal30-20-2517 Telephone encounter Note* Telephone Encounter - Marge [...] answer question Protocols used: Post-Op Symptoms and Aoovdvpbo-JGLMM-RQ T [facility] HospitalEbjjku94-33-2973 Hospital course Narrative* Amber Espinoza MD - 05/11/2023 3:02 PM EDT Images from the original note were not included. Discharge Summary Anne Marie Peterson : 1995 ADMIT DATE: 05/10/2023 DISCHARGE DATE: 05/11/23 ATTENDING PHYSICIAN: Memo Campbell MD VISIT STATUS: Admission CODE STATUS: Full Code DISCHARGE DIAGNOSES: Principal Problem: Morbid obesity with BMI of 60.0-69.9, adult (HCC) Active Problems: Prediabetes Mixed hyperlipidemia MOE on CPAP Hypertension Hepatic steatosis BMI Classification: Estimated body mass index is 65.45 kg/m as calculated from the following: Height as of this encounter: 5' 6 (1.676 m). Weight as of this encounter: 405 lb 8 oz (184 kg). Morbidly Obese (>40.0) HOSPITAL COURSE: Anne Marie Peterson is a 27 y.o. female who presented to [facility] on 05/10/2023 for elective bariatric surgical procedure. [...] to 5 days. CONTINUE taking these medications CareTouch 2 CPAP Hose Milk Receiver Tank Truck misc colestipol 1 g tablet Commonly known [...] Your Medications These medications were sent to [facility] [address] [place] [id number] Hours: Wednesday to Wednesday 10 am to [...] This note may have been dictated using [employer] 911 Medical Practice Edition 2.6 and/or [employer] Voice Recognition Feature. The document was proofread; however, unrecognized voice recognition conventional underwriter errors may be present. documented in this [facility]03-19-2024 History of Present illness Narrative* Zully Anton RN - 05/11/2023 1:01 PM EDT Bariatric clearance rep Note POD #1-PM S/P RYGB Patient doing [...] level 1-10: 3 Anticipate discharge: today BARIATRIC SPECIAL EVENTS MANAGER DISCHARGE NOTE Verbal and written discharge instructions [...] RN - 05/11/2023 9:38 AM EDT Bariatric Combine Inspector Note POD#1- AM S/P LRYGB UGI Done [...] from the original note were not included. [facility] - Surgery Bariatric Care Center [...] Christy Lopez MD PGY-2, General Surgery Pager# [phone] 05/11/2023 6:31 AM Associated attestation - Memo Campbell MD - 05/11/2023 8:53 AM EDT Images from the original note were not included. [facility] - Surgery Bariatric Care Center [...] (!) 405 lb 8 oz (184 kg) 05/10/232112 151/97 36.4 C (97.6 F) Temporal [...] as well as the bariatric nurse case management manager. Memo Campbell MD 05/11/2023, 8:53 AM * Jennifer Hyde RCP - 05/11/2023 12:29 AM EDT [facility] Respiratory Care Department Progress Note As [...] care of this patient, documented in this [facility]03-19-2024 Plan of care note* Care Plan - [...] monitored and maintained or improved Outcome: Progressing [facility] HospitalMzywqh20-47-6276 Miscellaneous Notes* Care Plan - Elise Woodward [...] from the original note were not included. [facility] Surgery [facility] Physicians Surgery Patient Name: Anne Marie Peterson OPERATIVE NOTE DATE OF PROCEDURE: 05/10/2023 SURGEON: Memo Campbell MD POLICE SHIFT COMMANDER: Christy Lopez MD PREOPERATIVE DIAGNOSIS: HTN MOE [...] and taken to recovery in stable condition. [facility] Data Collection Sheet Start Time: 1414 Stop Time: 1630 Parts Cataloger: [x] Resident [] Fellow [] PA/COMPETENCY EVALUATED NURSE AIDE/PSYCHOLOGIST COUNSELING [] Attending - Weight Loss Surgeon ASA [...] Procedures: EGD Liver Biopsy documented in this [place] [address]-18-2024 Nurse Note* Babs King RN - 05/10/2023 11:[address] Juan F Nixon notified that placing the patient on telemetry has been delayed, waiting for a compliance monitor box to become available, Dr. Juan F Nixon aware, no new orders at this time. [address]Hwtgkl41-33-4183 Nurse Note* Babs King RN - 05/10/2023 11:[address] Juan F Nixon notified that placing the patient on telemetry has been delayed, waiting for a compliance monitor box to become available, Dr. Juan F Nixon aware, no new orders at this time. documented in this [facility]03-18-2024 Note* Perioperative Nursing Note - Jocelyn Sosa RN - 05/10/2023 5:32 PM EDT Labs drawn and sent to lab [address]Lrmcbl57-15-1926 Note* Perioperative Nursing Note - Jocelyn Sosa RN - 05/10/2023 5:32 PM EDT Labs drawn and sent to lab [address]Pdxuxb94-19-4218 Hospital Discharge instructions* Discharge Instructions* Zully Anton [...] redness, drainage or pain), please notifyyour manager programming. Take your temperature twice a day for the first postoperative week. Call if your temperature is greater than 101 F. A fever could be a sign of infection or surgical complication. Resume your home medications as directed by your surgeon and your manager programming. Make an appointment with your prescribing physician [...] Please call the Bariatric Care Center at [phone] if you have any questions or concerns during business hours: Wednesday through Wednesday, 8 a.m. to 4:30 p.m. The answering service may be called during non- business hours at [phone]. If you have a medical emergency, call [...] your safety and recovery. documented in this [facility]03-18-2024 Note* Op Note - Memo Campbell MD - 05/10/2023 1:41 PM EDT Images from the original note were not included. [facility] - Surgery [facility] Physicians Surgery Patient Name: Anne Marie Peterson OPERATIVE NOTE DATE OF PROCEDURE: 05/10/2023 SURGEON: Memo Campbell MD POLICE SHIFT COMMANDER: Christy Lopez MD PREOPERATIVE DIAGNOSIS: HTN MOE [...] and taken to recovery in stable condition. [facility] Data Collection Sheet Start Time: 1414 Stop Time: 1630 Parts Cataloger: [x] Resident [] Fellow [] PA/COMPETENCY EVALUATED NURSE AIDE/PSYCHOLOGIST COUNSELING [] Attending - Weight Loss Surgeon ASA [...] [] No Other Procedures: EGD Liver Biopsy [facility] HospitalGdjxyz29-18-8973 Note* Op Note - Memo Campbell MD - 05/10/2023 1:41 PM EDT Images from the original note were not included. [facility] - Surgery [facility] Physicians Surgery Patient Name: Anne Marie Peterson OPERATIVE NOTE DATE OF PROCEDURE: 05/10/2023 SURGEON: Memo Campbell MD POLICE SHIFT COMMANDER: Christy Lopez MD PREOPERATIVE DIAGNOSIS: HTN MOE [...] patient. The stomach was grasped using a [place] forceps and retractedcaudally to expose the phrenoesophageal [...] and taken to recovery in stable condition. [facility] Data Collection Sheet Start Time: 1413 Stop Time: 1630 Parts Cataloger: [x] Resident [] Fellow [] PA/COMPETENCY EVALUATED NURSE AIDE/PSYCHOLOGIST COUNSELING [] Attending - Weight Loss Surgeon ASA [...] [] No Other Procedures: EGD Liver Biopsy [facility] HospitalYkcnle22-87-4829 Attending History and physical note* Memo Campbell MD - 05/10/2023 12:52 PM EDT Images from the original note were not included. [facility] - Surgery [facility] Physicians Surgery Patient Name: Anne Marie [...] MO Plan LRYGB Source Note - Rosalva SandovalLUCIA - OPHTHALMOLOGY SURGICAL TECHNICIAN - 05/03/2023 11:30 AM EDT Images from the original note were not included. Comprehensive Pre Surgical History and Physical ? Name: Anne Marie Peterson : 1995 (Age-27 y.o.) Date of Service: Pt seen/examined on 05/03/2023 Procedure Information Date/Time: 05/10/23 1330 Procedures: LAPAROSCOPIC SANDRA-EN-Y GASTRIC BYPASS WITH LIVER WEDGE BIOPSY, POSSIBLE OPEN (Abdomen) - THIS CASE REQUIRES 180MINS UNLISTED LAPAROSCOPIC PROCEDURE LIVER (Abdomen) Location: [address] Operating Room Surgeons: Memo Campbell MD [...] pre- operative evaluation prior to ? Case: [id number] Date/Time: 05/10/23 1330 Procedures: LAPAROSCOPIC SANDRA-EN-Y GASTRIC BYPASS WITH LIVER WEDGE BIOPSY, POSSIBLE OPEN (Abdomen) [60212 CPT(R)] - THIS CASE REQUIRES 180MINS UNLISTED LAPAROSCOPIC PROCEDURE LIVER (Abdomen) [63536 CPT(R)] Anesthesia type: General Diagnosis: Morbid (severe) obesity due to excess calories (HCC) [E66.01] Pre-op diagnosis: Morbid (severe) obesity due to excess calories (HCC) [E66.01] Location: [address] Operating Room Surgeons: Memo Campbell MD From last office visit with Dr. Campbell on 04/08/23: The patient is a 27 y.o. year old female with morbid obesity, who stands Height: 5' 5.25 (165.7 cm) ([facility]) tall with a weight of Weight: (!) [...] constipation. Patient denies hx of CAD, CHF, PA, TIA/CVA, diabetes, COPD, asthma, DVT/PE. Past Medical [...] [facility]. [facility]o [facility] No date: UPPER GASTROINTESTINAL ENDOSCOPY Medications Prior [...] Respiratory Therapy Supplies (CareTouch 2 CPAP Hose Milk Receiver Tank Truck) misc 10 cm h20 VITAMIN D, CHOLECALCIFEROL, [...] 01/12/23 METS: Yes, >4 Electronically signed by: Rosalva Sandoval APRN - OPHTHALMOLOGY SURGICAL TECHNICIAN Date: 05/03/2023 at 11:58 AM [facility] HospitalAyqiyo66-06-6616 History and physical note* Memo Campbell MD - 05/10/2023 12:52 PM EDT Images from the original note were not included. [facility] - Surgery [facility] Physicians Surgery Patient Name: Anne Marie [...] MO Plan LRYGB Source Note - Rosalva Sandoval APRN - OPHTHALMOLOGY SURGICAL TECHNICIAN - 05/03/2023 11:30 AM EDT Images from the original note were not included. Comprehensive Pre Surgical History and Physical ? Name: Anne Marie Peterson : 1995 (Age-27 y.o.) Date of Service: Pt seen/examined on 05/03/2023 Procedure Information Date/Time: 05/10/23 1330 Procedures: LAPAROSCOPIC SANDRA-EN-Y GASTRIC BYPASS WITH LIVER WEDGE BIOPSY, POSSIBLE OPEN (Abdomen) - THIS CASE REQUIRES 180MINS UNLISTED LAPAROSCOPIC PROCEDURE LIVER (Abdomen) Location: [facility] OR [address] [place] [address] Operating Room Surgeons: Memo Campbell MD Chief [...] pre- operative evaluation prior to ? Case: [id number] Date/Time: 05/10/23 1330 Procedures: LAPAROSCOPIC SANDRA-EN-Y GASTRIC BYPASS WITH LIVER WEDGE BIOPSY, POSSIBLE OPEN (Abdomen) [22525 CPT(R)] - THIS CASE REQUIRES 180MINS UNLISTED LAPAROSCOPIC PROCEDURE LIVER (Abdomen) [30548 CPT(R)] Anesthesia type: General Diagnosis: Morbid (severe) obesity due to excess calories (HCC) [E66.01] Pre-op diagnosis: Morbid (severe) obesity due to excess calories (HCC) [E66.01] Location: [address] Operating Room Surgeons: Memo Campbell MD From last office visit with Dr. Campbell on 04/08/23: The patient is a 27 y.o. year old female with morbid obesity, who stands Height: 5' 5.25 (165.7 cm) ([facility]) tall with a weight of Weight: (!) [...] constipation. Patient denies hx of CAD, CHF, PA, TIA/CVA, diabetes, COPD, asthma, DVT/PE. Past Medical [...] HERNIA REPAIR Comment: Dr. Memo Duke / [facility] - inguinal hernia 2010: LAP,CHOLECYSTECTOMY (HISTORICAL) Comment: Dr. Memo Duke / [facility] No date: UPPER GASTROINTESTINAL ENDOSCOPY Medications Prior [...] Respiratory Therapy Supplies (CareTouch 2 CPAP Hose Milk Receiver Tank Truck) misc 10 cm h20 VITAMIN D, CHOLECALCIFEROL, [...] 05/03/2023 at 11:58 AM documented in this [facility]03-12-2024 Telephone encounter Note* Telephone Encounter - LUCIA [...] if she has any questions or concerns [facility] HospitalMrainv82-60-3201 Miscellaneous Notes* Telephone Encounter - LUCIA Bernal [...] any questions or concerns documented in this [facility]02-15-2024 Telephone encounter Note* Telephone Encounter - SUZANNA Lyons - 04/08/2023 1:31 PM EST Rx sent, thanks [facility] HospitalXlgmpa84-30-1599 Miscellaneous Notes* Telephone Encounter - SUZANNA Lyons [...] 60 mg Lovenox BID documented in this [facility]02-15-2024 Telephone encounter Note* Telephone Encounter - Zully Anton RN - 04/08/2023 9:46 AM EST Images from the original note were not included. Please see below per Dr. Busby: MD Zully Marina RN; SUZANNA Lyons But because BMI > 65 will plan for 2 weeks VTE prophylaxis Order pended. [facility] HospitalCvdwve03-52-4032 History of Present illness Narrative* Memo Campbell MD - 04/08/2023 9:10 AM EST [facility] SURGICAL WEIGHT LOSS MANAGEMENT PROGRAM PROGRESS NOTE [...] 1999 Dr. Memo [facility] / [facility] - inguinal hernia LAP,CHOLECYSTECTOMY (HISTORICAL) 2009 Dr. Memo [facility] Recommendations: We spent a great deal [...] [] [] On CPAP / Obtain settings [id number] Toxicology [] [] Urine drug screen/ETOH [] Nicotine Additional [] a1c 12/14/22 5.8 INITIAL CONSULTATIONS ORDERED CLEARANCE / MANAGEMENT Psychology [x] Dr. Albin andersen 01/18/23. Cleared 02/23/23 Dietitian [x] Viridiana Goodwin RD Cleared 11/02/22 Cardiology [x] Dr. [...] Zully Anton RN as Registered Nurse (Bariatrics) * Vivian Yrn - 04/08/2023 9:10 AM EST [facility] SURGICAL WEIGHT LOSS MANAGEMENT PROGRAM Rooming [...] (183 kg) Height: 5' 5.25 (165.7 cm) ([facility]) BMI (Calculated): 66.7 Percent Excess Weight Loss: [...] Completed by: Vivian Pool documented in this [facility]02-05-2024 Telephone encounter Note* Telephone Encounter - Zully [...] Lovenox BID [] 60 mg Lovenox BID [employer]01-22-2024 Telephone encounter Note* Telephone Encounter - Ty Pugh RN - 03/15/2023 9:38 AM EST I returned call to pt. Had to go to local ER on for a-fib w/ RVR and pre- syncope. Emailed records to Aisha Abreu. Was pre-syncopal when she tried to [...] to 50mg every day. Med list updated. [employer]01-22-2024 Miscellaneous Notes* Telephone Encounter - Ty Pugh RN - 03/15/2023 9:38 AM EST I returned call to pt. Had to go to local ER on for a-fib w/ RVR and pre- syncope. Emailed records to Aisha Abreu. Was pre-syncopal when she tried to [...] let us know she did go to [facility] for a- fib. I have requested records. Anne Marie would like to know if she needs to be seen in the office? Please advise. * Telephone Encounter - Tanja Saenz - 03/11/2023 6:29 AM EST Name of caller requesting page: ANNE MARIE Phone number of caller: [phone] Facility requesting page: PATIENT Reason for page: PT BELIEVES SHE IS IN AFIB AGAIN Provider paged: ANDRAE Santiago name of paged provider: DARRIAN HAIRSTON Page placed to #: SW Time page was sent or provider contacted: 6:32A Method of contact: SW Page content: PT BELIEVES SHE IS IN AFIB AGAIN documented in this encounterSACMC Healthcare SystemQfsegz43-39-9730 Telephone encounter Note* Telephone Encounter - Ashanti Chapman MA - 03/15/2023 8:16 AM EST The patient called to let us know she did go to [facility] for a- fib. I have requested records. Anne Marie would like to know if she needs to be seen in the office? Please advise. [facility] HospitalIrcgcb38-83-0341 Telephone encounter Note* Telephone Encounter - Balwinder Lam RN - 03/13/2023 5:23 PM EST S: Patient [facility] regarding problem B: Per nurse triage ticket created by PALS A: Patient disconnected prior to speaking with nurse. No answer upon return call to patient. R: Left voice message for patient to call the office if assistance is still needed.. Reason for Disposition Message left on unidentified voice mail. Phone number verified. Protocols used: No Contact or Duplicate Contact Fnrx-[id number]-YN [facility] HospitalHxpzad54-78-5384 Miscellaneous Notes* Telephone Encounter - Balwinder Lam RN - 03/13/2023 5:23 PM EST S: Patient called the [facility] regarding problem B: Per nurse triage ticket created by PALS A: Patient disconnected prior to speaking with nurse. No answer upon return call to patient. R: Left voice message for patient to call the office if assistance is still needed.. Reason for Disposition Message left on unidentified voice mail. Phone number verified. Protocols used: No Contact or Duplicate Contact Drhs-BEUXS-ZT documented in this encounterSACMC Healthcare SystemAmlpbr58-97-8865 Telephone encounter Note* Telephone Encounter - Tanja Saenz - 03/11/2023 6:29 AM EST Name of caller requesting page: ANNE MARIE Phone number of caller: [phone] Facility requesting page: PATIENT Reason for page: PT BELIEVES SHE IS IN AFIB AGAIN Provider paged: ANDRAE Santiago name of paged provider: DARRIAN HAIRSTON Page placed to #: SW Time page was sent or provider contacted: 6:32A Method of contact: SW Page content: PT BELIEVES SHE IS IN AFIB AGAIN [facility] HospitalGxsllk36-90-2290 Miscellaneous Notes* Telephone Encounter - Tanja Saenz - 03/11/2023 6:29 AM EST Name of caller requesting page: ANNE MARIE Phone number of caller: [phone] Facility requesting page: PATIENT Reason for page: PT BELIEVES SHE IS IN AFIB AGAIN Provider paged: ANDRAE Santiago name of paged provider: DARRIAN HAIRSTON Page placed to #: SW Time page was sent or provider contacted: 6:32A Method of contact: SW Page content: PT BELIEVES SHE IS IN AFIB AGAIN documented in this encounterSACMC Healthcare SystemKjmtsm52-23-8101 Telephone encounter Note* Telephone Encounter - LUCIA Chin CNP - 02/25/2023 9:07 AM EST Noted, signed, thanks.l [facility] HospitalVpoytf64-26-8504 Miscellaneous Notes* Telephone Encounter - LUCIA Chin [...] (WNL; was 31 two mo ago) Sent MyChart message regarding labs. documented in this [facility]01-03-2024 Telephone encounter Note* Telephone Encounter - Kimberley [...] months. Orders pending. Please sign. Thank you! [facility] HospitalKswpiz37-73-5239 Telephone encounter Note* Telephone Encounter - Kimberley [...] (WNL; was 31 two mo ago) Sent Bill Me Laterhart message regarding labs. [facility] [id number] History of Present illness Narrative* Debbie Menendez MA - 02/05/2023 12:40 PM EST [facility] SURGICAL WEIGHT LOSS MANAGEMENT PROGRAM PROGRESS NOTE FOLLOW UP Patient: Anne Marie Peterson Date of : 1995 Service Date: 02/05/2023 DE Visit number: 4 of 3 Pre Program Weight Metrics Date of Initial Consultation:@FLOWLAST(8961)@ Initial Weight: @FLOWLAST([id number])@ Initial BMI: @FLOWLAST([id number])@ [place] Body Weight: @FLOWLAST([id number])@ Excess Body Weight: @FLOWLAST([id number])@ Follow Up Weight Metrics Last Three Weights [...] Completed by: Debbie Menendez MA * Mary Tirado MD - 02/05/2023 12:40 PM EST HPI, [...] No medications on file documented in this encounterSumma [id number] History of Present illness Narrative* Hyun Hirsch PA-C - 01/25/2023 10:40 AM EST [...] seasonal allergies. 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 SpO2 <88% for 2.5 minutes. Prescribed CPAP 10 cm H2O. She has difficulty remembering to put her CPAP on before she falls asleep. She feels she sleeps worse with CPAP on. Has nasal mask- feels it does not fit well. [place] Sleepiness Scale: 5 Sleep apnea symptoms: Bedtime [...] with BMI of 60.0-69.9, adult (HCC) BMI 65.73, will benefit from weight loss. Follow-up per Dr. Campbell. Follow-up: Follow up in about 6 months (around 07/27/2023) for MOE f/u. documented in this [facility]11-29-2023 Telephone encounter Note* Telephone Encounter - Matteo Abreu MD - 01/20/2023 4:01 PM EST Left a message about her Echo, normal LVEF/function and normal valve function. Likely has a small PFO but this is common in 25% of people and nothing to worry about. PGY6, Cardiovascular Fellow at 4:01 PM [facility] [employer] Work Phone: [phone] Miscellaneous Notes* Telephone Encounter - Matteo Abreu MD - 01/20/2023 4:01 PM EST Left a message about her Echo, normal LVEF/function and normal valve function. Likely has a small PFO but this is common in 25% of people and nothing to worry about. PGY6, Cardiovascular Fellow at 4:01 PM documented in this [facility]11-27-2023 History of Present illness Narrative* Hyacnith Romo MA - 01/18/2023 9:30 AM EST [facility] SURGICAL WEIGHT LOSS MANAGEMENT PROGRAM PROGRESS NOTE FOLLOW UP Patient: Anne Marie Peterson Date of : 1995 Service Date: 01/18/2023 DE Visit number: 3 of 3 Pre Program Weight Metrics Date of Initial Consultation:@FLOWLAST(8961)@ Initial Weight: @FLOWLAST([id number])@ Initial BMI: @FLOWLAST([id number])@ [place] Body Weight: @FLOWLAST([id number])@ Excess Body Weight: @FLOWLAST([id number])@ Follow Up Weight Metrics Last Three Weights [...] Completed by: Hyacinth Romo MA * Mary Tirado MD - 01/18/2023 9:30 AM EST HPI, [...] tongue daily. ERGOCALCIFEROL (VITAMIN D2) 1.25 MG (52908 UT) CAPSULE Take 1 capsule (1.25 mg) [...] No medications on file documented in this [facility]11-21-2023 Nurse Note* Osiris Patel RN - 01/12/2023 1:00 PM EST Bubble study complete. [facility] HospitalUfunsl33-38-4082 Nurse Note* Osiris aPtel RN - 01/12/2023 1:00 PM EST Bubble study complete. documented in this [facility]11-21-2023 Note* Op Note - Memo Campbell MD - 01/12/2023 7:34 AM EST [facility] Patient Name: Anne Marie Peterson Procedure Date: 01/12/2023 7:34 AM Gender: Female Date of : 1995 Age: 27 Admit Type: Outpatient Note Status: Finalized Endoscopist: Memo Campbell MD, [id number] Procedure: Upper GI endoscopy Indications: Preoperative assessment [...] immediate complications. Procedure Code(s): --- Professional --- 67916, Esophagogastroduodenoscopy, flexible, transoral; with biopsy, single or multiple --- Technical --- 36326, Esophagogastroduodenoscopy, flexible, transoral; with biopsy, single or multiple Diagnosis Code(s): --- Professional --- K29.70, Gastritis, unspecified, without bleeding Z01.818, Encounter for other preprocedural examination E66.01, Morbid (severe) obesity due to excess calories --- Technical --- K29.70, Gastritis, unspecified, without bleeding Z01.818, Encounter for other preprocedural examination E66.01, Morbid (severe) obesity due to excess calories CPT copyright 2021 [employer]. All rights reserved. The codes documented in this report are preliminary and upon crown ironer review may be revised to meet current compliance requirements. Attending Participation: I personally performed the entire procedure. Memo Campbell MD 01/12/2023 8:04:55 AM This report has been signed electronically. Number of Addenda: 0 Note Initiated On: 01/12/2023 7:34 AM [facility] HospitalTughln69-02-0477 Miscellaneous Notes* Op Note - Memo Campbell MD - 01/12/2023 7:34 AM EST [facility] Name: Anne [facility] Peterson Procedure Date: 01/12/2023 7:34 AM Gender: Female Date of : 1995 Age: 27 Admit Type: Outpatient Note Status: Finalized Endoscopist: Memo Campbell MD, [id number] Procedure: Upper GI endoscopy Indications: Preoperative assessment [...] immediate complications. Procedure Code(s): --- Professional --- 55159, Esophagogastroduodenoscopy, flexible, transoral; with biopsy, single or multiple --- Technical --- 84571, Esophagogastroduodenoscopy, flexible, transoral; with biopsy, single or multiple Diagnosis Code(s): --- Professional --- K29.70, Gastritis, unspecified, without bleeding Z01.818, Encounter for other preprocedural examination E66.01, Morbid (severe) obesity due to excess calories --- Technical --- K29.70, Gastritis, unspecified, without bleeding Z01.818, Encounter for other preprocedural examination E66.01, Morbid (severe) obesity due to excess calories CPT copyright 2021 [employer]. All rights reserved. The codes documented in this report are preliminary and upon crown ironer review may be revised to meet current compliance requirements. Attending Participation: I personally performed the entire procedure. Memo Campbell MD 01/12/2023 8:04:55 AM This report has been signed electronically. Number of Addenda: 0 Note Initiated On: 01/12/2023 7:34 AM documented in this [facility]11-19-2023 History and physical note* Memo Campbell MD - 01/10/2023 6:09 PM EST Images from the original note were not included. [facility] - Surgery [facility] Physicians Surgery PATIENT NAME: Anne Marie [...] [facility] LAP,CHOLECYSTECTOMY (HISTORICAL) 2009 Dr. Memo Duke / [facility] Current Medications: Current Facility-Administered Medications Medication Dose Route Frequency Provider Last Rate Last Admin sodium chloride 0.9 % infusion 50 mL/hr IntraVENous Continuous SUZANNA Lyons Prior to Admission medications Medication Sig Start Date End Date Taking? Authorizing Provider Cyanocobalamin (Vitamin B-12) [address] 1 Dose under the tongue daily. 12/15/22 Historical Provider, ergocalciferol (Vitamin D2) 1.25 MG (17323 UT) capsule Take 1 capsule (1.25 mg) [...] understanding and willingness to proceed with plan. [facility]11-19-2023 History and physical note* Memo Campbell MD - 01/10/2023 6:09 PM EST Images from the original note were not included. [facility] - Surgery [facility] Physicians Surgery PATIENT NAME: Anne Marie [...] REPAIR 1999 [facility] LAP,CHOLECYSTECTOMY (HISTORICAL) 2009 [facility] Current Medications: Current Facility-Administered Medications Medication Dose Route Frequency Provider Last Rate Last Admin sodium chloride 0.9 % infusion 50 mL/hr IntraVENous Continuous SUZANNA Lyons Prior to Admission medications Medication Sig Start Date End Date Taking? Authorizing Provider Cyanocobalamin (Vitamin B-12) [address] 1 Dose under the tongue daily. 12/15/22 Historical Provider, ergocalciferol (Vitamin D2) 1.25 MG (18734 UT) capsule Take 1 capsule (1.25 mg) [...] to proceed with plan. documented in this [facility]11-17-2023 History of Present illness Narrative* Delphine Sanchez MD - 01/08/2023 2:00 PM EST [facility] Cardiology [facility] [address] [place] [id number] Dept: [phone] Dept Visit type: Established : 1995 Chief [...] 1999 Dr. Memo [facility] - inguinal hernia LAP,CHOLECYSTECTOMY (HISTORICAL) 2009 Dr. Memo [facility] Family History Family History Problem Relation [...] , Rfl: ergocalciferol (Vitamin D2) 1.25 MG (60079 UT) capsule, Take 1 capsule (1.25 mg) [...] my assessment and plan. documented in this [facility]11-01-2023 Telephone encounter Note* Telephone Encounter - Ashanti Chapman MA - 12/23/2022 9:36 AM EDT The patient returned my call but had to l\m for me, I returned her call and unfortunately had to l\m for her to call the office. [facility] HospitalZceqzx21-99-2448 Miscellaneous Notes* Telephone Encounter - Ashanti Chapman MA - 12/23/2022 9:36 AM EDT The patient returned my call but had to l\m for me, I returned her call and unfortunately had to l\m for her to call the office. * Telephone Encounter - Ashanit Chapman MA - 12/22/2022 1:37 PM EDT I called the patient to schedule her 2 wk follow up per Dr. Abreu and also talk with her about getting her echo scheduled. I had to l\m to call the office. * Telephone Encounter - Matteo Abreu MD - 12/22/2022 10:38 AM EDT Called patient back, she had been having palpitations for about 1 day then went into the ER. She had AF RVR HR up to 205 on ECG at [facility] that I reviewed myself. She eventually [...] chest feels sore today. documented in this [facility]10-31-2023 Telephone encounter Note* Telephone Encounter - Ashanti Chapman MA - 12/22/2022 1:37 PM EDT I called the patient to schedule her 2 wk follow up per Dr. Abreu and also talk with her about getting her echo scheduled. I had to l\m to call the office. [facility] HospitalXavkcd60-09-2096 Miscellaneous Notes* Telephone Encounter - Ashanti Chapman MA - 12/22/2022 1:37 PM EDT I called the patient to schedule her [address] wk follow up per Dr. Abreu and also talk with her about getting her echo scheduled. I had to l\m to call the office. * Telephone Encounter - Matteo Abreu MD - 12/22/2022 10:38 AM EDT Called patient back, she had been having palpitations for about 1 day then went into the ER. She had AF RVR HR up to 205 on ECG at [facility] that I reviewed myself. She eventually [...] chest feels sore today. documented in this [facility]10-31-2023 Telephone encounter Note* Telephone Encounter - Matteo Abreu MD - 12/22/2022 10:38 AM EDT Called patient back, she had been having palpitations for about 1 day then went into the ER. She had AF RVR HR up to 205 on ECG at [facility] that I reviewed myself. She eventually [...] Echocardiogram. PGY6, Cardiovascular Fellow at 10:49 AM [facility] HospitalWqpzbi49-53-9058 Telephone encounter Note* Telephone Encounter - Ashanti Chapman MA - 12/21/2022 4:28 PM EDT ED records are now scanned into the chart for review. [facility] HospitalTjohrw10-34-9682 Telephone encounter Note* Telephone Encounter - Ashanti Chapman MA - 12/21/2022 3:07 PM EDT The patient called to inform and to be advised. She had to call 911 last Wednesday due to per the patient, going into a-fib. I have called and requested the ED report and testing be faxed to our office.She did state her chest feels sore today. [facility] HospitalPdmkvr11-14-0330 Telephone encounter Note* Telephone Encounter - SUZANNA Lyons - 12/15/2022 4:23 PM EDT Signed, thanks [facility] HospitalGcgrcd14-47-7663 Miscellaneous Notes* Telephone Encounter - SUZANNA Lyons - 12/15/2022 4:23 PM EDT Signed, thanks * Telephone Encounter - Kimberley Frank RD - 12/15/2022 2:09 PM EDT Please see Bill Me Laterhart communication between pt and this RD. Recommend: [...] (L end NL) Total Protein: 8.7 (H) [place] Mailing message sent to pt regarding labs. documented in this [facility]10-24-2023 Telephone encounter Note* Telephone Encounter - Kimberley [...] months. Orders pending. Please sign. Thank you! [facility] Yeohyv09-27-2055 Telephone encounter Note* Telephone Encounter - Kimberley Frank RD - 12/15/2022 1:45 PM EDT Pre-op_JZ 12/14/2022 Iron: 31 (L) Ferritin: 14 (L end Nl) Hgb: 11.9 (WNL) Hemct: 38.1 (WNL) Vitamin D: <13 (L) Vitamin B12: 260 (L end NL) Total Protein: 8.7 (H) Odersunt message sent to pt regarding labs. [facility] HospitalXrgtku23-85-3791 Note* Addendum Note - Jolly Elaine - 12/14/2022 10:09 AM EDTAddended by: JOLLY ELAINE on: 12/14/2022 10:09 AM Modules accepted: Orders [facility] HospitalPydzsu10-73-6945 Note* Addendum Note - Jolly Elaine - 12/14/2022 10:09 AM EDTAddended by: JOLLY ELAINE on: 12/14/2022 10:09 AM Modules accepted: Orders [facility] HospitalZnvpwo07-55-8286 Miscellaneous Notes* Addendum Note - Jolly Elaine [...] recommended proceeding with the evaluation, workup and dairy nutrition consultant preoperative consultationsand testing for the primary procedure as outlined below: BARIATRIC AND METABOLIC SURGERY [facility] PATIENT SUMMARY Anne Marie Campbell [...] and Gynecology) * Telephone Encounter - Barbara Lynette Mayberry - 09/10/2022 1:22 PM EDT Initial New [facility] surgical patient Navigation & Financial Counseling [...] [] YES [] NO PRIMARY INSURANCE: Payor: [facility] MEDICAID / Plan: [facility] MEDICAID ODM / Product Type: Medicaid [...] 1) Scheduled at new pt surgeon visit: Certified Medication Aide (RD) for a Nutrition Assessment (BNA) and [...] before and after surgery. documented in this [facility]10-23-2023 History of Present illness Narrative* Debbie Menendez MA - 12/14/2022 8:50 AM EDT [facility] SURGICAL WEIGHT LOSS MANAGEMENT PROGRAM PROGRESS NOTE FOLLOW UP Patient: Anne Marie Peterson Date of : 1995 Service Date: 12/14/2022 DE Visit number: 2 of 3 Pre Program Weight Metrics Date of Initial Consultation:@FLOWLAST(8961)@ Initial Weight: @FLOWLAST([id number])@ Initial BMI: @FLOWLAST([id number])@ [place] Body Weight: @FLOWLAST([id number])@ Excess Body Weight: @FLOWLAST([id number])@ Follow Up Weight Metrics Last Three Weights [...] Completed by: Debbie Menendez MA * Mary Tirado MD - 12/14/2022 8:50 AM EDT HPI, [...] No medications on file documented in this [facility]09-11-2023 History of Present illness Narrative* Debbie Menendez MA - 11/02/2022 3:30 PM EDT [facility] SURGICAL WEIGHT LOSS MANAGEMENT [...] cm) Initial Weight: 390 lb (177 kg) [place] Body Weight: 142 lb (64.4 kg) Initial [...] Completed by: Debbie Menendez MA * Mary Tirado MD - 11/02/2022 3:30 PM EDT BARIATRIC [...] 1999 Dr. Memo Duke / Ernst Chavez [facility] - inguinal hernia LAP,CHOLECYSTECTOMY (HISTORICAL) 2009 [facility] Family History Problem Relation Name Age [...] (177 kg) Initial BMI: Initial BMI: 64.40 [place] Body Weight: [place] Body Weight: 142 lb (64.4 kg) Excess [...] DIET HISTORY FORM with patient (located in Rules Examiner) Her diet contains inadequate amounts of protein, [...] No medications on file documented in this [facility]09-11-2023 History of Present illness Narrative* Viridiana Goodwin RD - 11/02/2022 2:00 PM EDT [facility] BARIATRIC NUTRITION ASSESSMENT / [...] dad is questioning, sister is very support, cecille supports Primary reason(s) for weight loss - [...] at 5 am, no breakfast, allergy to carloe Snack: Lunch: chips or hot pocket now and then Snack: Dinner: 4pm dinner, soups, or out to eat Snack: none Drinks: water, 1-2 sweet tea, no pop, no alcohol 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 Family knowledgeable about/supportive of plans for weight loss surgery: Mom aware and supports and dad is questioning, sister is very support, cecille supports, 4 kids 9,7,4,1 (1 girl and [...] Diagnoses: Obesity Bariatric Nutrition Assessment completed by: Viridiana Goodwin RD documented in this encounterSACMC Healthcare [id number] Telephone encounter Note* Telephone Encounter - Peggy Friedman MA - 10/07/2022 8:51 AM EDT [id number] Miscellaneous Notes* Telephone Encounter - Peggy Friedman [...] to ALS * Telephone Encounter - Peggy Firedman MA - 09/30/2022 2:12 PM EDT Plan: I have recommended proceeding with the evaluation, workup and dairy nutrition consultant preoperative consultationsand testing for the primary procedure as outlined below: BARIATRIC AND METABOLIC SURGERY [facility] PATIENT SUMMARY Anne Marie Campbell 26 y.o. female with Body mass index is 63.28 kg/m . Planned Procedures: Laparoscopic Sandra-en-Y Gastric Bypass DM[] HTN[] MOE[] GERD[] HL[] OA[] TOB[] Date of Surgery: Peg WORKMAN [facility] INITIAL PRE-OP TESTING ORDERS/ RESULTS Labwork [x] [...] - 09/10/2022 1:22 PM EDT Initial New [facility] surgical patient Navigation & Financial Counseling [...] [] YES [] NO PRIMARY INSURANCE: Payor: [facility] MEDICAID / Plan: [facility] MEDICAID ODM / Product Type: Medicaid [...] 1) Scheduled at new pt surgeon visit: Certified Medication Aide (RD) for a Nutrition Assessment (BNA) and [...] before and after surgery. documented in this [facility]08-15-2023 Note* Addendum Note - SUZANNA Lyons - 10/06/2022 12:34 PM EDTAddended by: MILEY MOISE on: 10/06/2022 12:34 PM Modules accepted: Orders [place] [id number] Note* Addendum Note - SUZANNA Lyons - 10/06/2022 12:34 PM EDTAddended by: MILEY MOISE on: 10/06/2022 12:34 PM Modules accepted: Orders [place] [id number] Note* Addendum Note - SUZANNA Lyons - 10/06/2022 12:34 PM EDTAddended by: MILEY MOISE on: 10/06/2022 12:34 PM Modules accepted: Orders [place] [id number] Miscellaneous Notes* Addendum Note - SUZANNA Lyons [...] recommended proceeding with the evaluation, workup and dairy nutrition consultant preoperative consultationsand testing for the primary procedure as outlined below: BARIATRIC AND METABOLIC SURGERY [facility] PATIENT SUMMARY Anne Marie Campbell 26 y.o. [...] - 09/10/2022 1:22 PM EDT Initial New [facility] surgical patient Navigation & Financial Counseling [...] [] YES [] NO PRIMARY INSURANCE: Payor: [facility] MEDICAID / Plan: [facility] MEDICAID ODM / Product Type: Medicaid [...] 1) Scheduled at new pt surgeon visit: Certified Medication Aide (RD) for a Nutrition Assessment (BNA) and [...] before and after surgery. documented in this encounterSACMC Healthcare [id number] Telephone encounter Note* Telephone Encounter - SUZANNA Lyons - 10/06/2022 12:32 PM EDT Added pulm as note mentions she has sleep study scheduled this month, thanks [facility] [id number] Note* Addendum Note - Peggy Friedman MA - 09/30/2022 2:19 PM EDTAddended by: PEGGY FRIEDMAN on: 09/30/2022 02:19 PM Modules accepted: Orders [place] [id number] Note* Addendum Note - Peggy Friedman MA - 09/30/2022 2:19 PM EDTAddended by: PEGGY FRIEDMAN on: 09/30/2022 02:19 PM Modules accepted: Orders [place] [id number] Note* Addendum Note - Peggy Friedman MA - 09/30/2022 2:19 PM EDTAddended by: PEGGY FRIEDMAN on: 09/30/2022 02:19 PM Modules accepted: Orders [id number] Note* Addendum Note - Peggy Friedman MA - 09/30/2022 2:19 PM EDTAddended by: PEGGY FRIEDMAN on: 09/30/2022 02:19 PM Modules accepted: Orders [facility] [id number] Miscellaneous Notes* Addendum Note - Peggy Friedman [...] recommended proceeding with the evaluation, workup and dairy nutrition consultant preoperative consultationsand testing for the primary procedure as outlined below: BARIATRIC AND METABOLIC SURGERY [facility] PATIENT SUMMARY Anne Marie Campbell 26 y.o. female with Body mass index is 63.28 kg/m . Planned Procedures: Laparoscopic Sandra-en-Y Gastric Bypass DM[] HTN[] MOE[] GERD[] HL[] OA[] TOB[] Date of Surgery: TBPeg WORKMAN [facility] [place] INITIAL PRE-OP TESTING ORDERS/ RESULTS Labwork [x] [...] - 09/10/2022 1:22 PM EDT Initial New [facility] surgical patient Navigation & Financial Counseling [...] [] YES [] NO PRIMARY INSURANCE: Payor: [facility]ICA[facility] / Plan: [facility] MEDICAID ODM / Product Type: Medicaid [...] 1) Scheduled at new pt surgeon visit: Certified Medication Aide (RD) for a Nutrition Assessment (BNA) and [...] before and after surgery. documented in this encounterSACMC Healthcare [id number] Telephone encounter Note* Telephone Encounter - Peggy Friedman MA - 09/30/2022 2:13 PM EDT Orders pended, pre op checklist scanned, EGD order sent to ALS [place] [id number] Telephone encounter Note* Telephone Encounter - Peggy Friedman MA - 09/30/2022 2:12 PM EDT Plan: I have recommended proceeding with the evaluation, workup and dairy nutrition consultant preoperative consultationsand testing for the primary procedure as outlined below: BARIATRIC AND METABOLIC SURGERY [facility] PATIENT SUMMARY Anne Marie Campbell 26 y.o. [...] the evaluation and management of Anne Marie Kristen in the development of a treatment plan [...] (Family Medicine) Silviano Daley (Obstetrics and Gynecology) [employer] [id number] Telephone encounter Note* Telephone Encounter - Barbara Ojeda Jefe - 09/10/2022 1:22 PM EDT Initial New [facility] surgical patient Navigation & Financial Counseling [...] [] YES [] NO PRIMARY INSURANCE: Payor: [facility] MEDICA[facility] / Plan: [facility] MEDICAID ODM / Product Type: Medicaid [...] 1) Scheduled at new pt surgeon visit: Certified Medication Aide (RD) for a Nutrition Assessment (BNA) and [...] lab/testing results before and after surgery. [facility] [id number] History of Present illness Narrative* Memo Campbell MD - 09/10/2022 1:00 PM EDT Images from the original note were not included. [facility] SURGICAL PROGRAM INITIAL EVALUATION [...] REPAIR 1999 Dr. Memo Duke / Ernst [facility] - inguinal hernia LAP,CHOLECYSTECTOMY (HISTORICAL) 2009 [facility]. [facility] Social History: This patient is unaccompanied [...] I advised them to discuss with their physician/cloth inspector regarding contraception to prevent during this period of time after surgery. In addition, all patients were counseled on compliance with prescribed vitamin supplementation, office visit follow-up and compliance with program standards. Plan: I have recommended proceeding with the evaluation, workup and dairy nutrition consultant preoperative consultationsand testing for the primary procedure as outlined below: BARIATRIC AND METABOLIC SURGERY [facility] PATIENT SUMMARY Anne Marie Campbell 26 y.o. [...] Friedman MA - 09/10/2022 1:00 PM EDT [facility] SURGICAL WEIGHT LOSS MANAGEMENT PROGRAM Rooming Note [...] by: Peggy Friedman MA documented in this [facility]07-20-2023 History of Present illness Narrative* Memo Campbell MD - 09/10/2022 1:00 PM EDT Images from the original note were not included. [facility] SURGICAL PROGRAM INITIAL EVALUATION [...] [facility] LAP,CHOLECYSTECTOMY (HISTORICAL) 2009 Dr. Memo Duke / [facility] Social History: This patient is unaccompanied [...] I advised them to discuss with their physician/cloth inspector regarding contraception to prevent during this period of time after surgery. In addition, all patients were counseled on compliance with prescribed vitamin supplementation, office visit follow-up and compliance with program standards. Plan: I have recommended proceeding with the evaluation, workup and dairy nutrition consultant preoperative consultationsand testing for the primary procedure as outlined below: BARIATRIC AND METABOLIC SURGERY [facility] PATIENT SUMMARY Anne Marie Campbell [...] the evaluation and management of Anne Marie Kristen in the development of a treatment plan [...] Friedman MA - 09/10/2022 1:00 PM EDT [facility] SURGICAL WEIGHT LOSS MANAGEMENT PROGRAM Rooming [...] by: Peggy Friedman MA documented in this [facility]04[facility]2023 [facility] Rafi [facility] Note Date/Time August 01, 2024 12:4 2pm [facility] Medical Records Department [address] [place] [address] Anesthesia Postop Eval I 08/01/24 1141 MR#: [id number] Acct: [id number] Name: KRISTEN,ANNE MARIE INDIGO Rep #:[id number] : 1995 28 From: Rafi MYERS PCP: Xenia Lane PA-C Status:REG S DC Y Race: [facility] Location: [place] [address] Anesthesia: Postop Eval I Current Vital Signs Temperature: 98.3 F Pulse Rate: 92 Blood Pressure: 124/90 Respiratory Rate: 16 Pulse Ox: 92 Assessment Airway patent: Yes Spontaneous unlabored respirations: Yes nausea: No Vomiting: No Anesthesia Complication: No Fluid Hydration Crystalloid volume administer (ml): 600 Total IV fluid infused: 600 Progress Note Anesthesia document: Postop Eval 1 completed: Yes 08/01/24 1141 <Electronically signed by Rafi Lynn CRNA> Date _ Rafi Lynn CRNA Cosigner Signature: Date CC: ~ Signed [facility] Work Phone: Discharge summary Author Jay Liu [facility] Note Date/Time June 17, 2024 12: 23am [facility] Medical Records Department [address] [place] [address] Emergency Department Summary 06/17/24 MR#: [id number] Acct: [id number] Name: KRISTENANNE MARIE DANGELO Rep #:[id number] : 1995 28 From: Jay Liu MD [...] she went to an urgent care in [place] and wasprescribed Cipro for that which she is taking still. 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 We discussed reasons to return including severe bleeding. She is not having no symptoms of anemia at this time. History & Record Review Additional record(s) reviewed:: Prior labs (Blood type B+) Lab Data Labs: Laboratory Results - last 24 hr 06/16/24 23:35 Urine Color Yellow Urine Clarity Clear Urine pH 6.0 Ur Specific Marks 1.025 Urine Protein 30 H Urine Glucose [...] mcg capsule 1 cap PO DAILY PNV no.421-[id number]-dbd-bly-upar 400 mcg-35 mg- 25 mg-5 mg tablet,chewable [...] - As soon as possible Xenia Lane PA-C [Primary Care Provider] - Print Language: Brazilian Disposition Disposition: Home, Self Care What to do if you have Problems For any increased pain, shortness of breath, bleeding, nausea or vomiting, chestpain, or any unexpected problems, contact your Primary Care Provider. Call [facility] ([phone]) or report to the closest Emergency Room. Call 911 if necessary. 06/17/24 0023 <Electronically signed by Jay Liu MD> Cosigner Signature (if applicable): CC: RUMA Lane ~ Signed [facility] Work Phone: Discharge summary Author Peggy Sanchez [facility] Note Date/Time August 01, 2024 11:[address] [facility] Medical Records Department [address] [place] [id number] Instructions for Home/Discharge Instructions 08/01/24 1111 MR#: [id number] Acct: [id number] Name: ANNE MARIE PETERSON Rep #:[id number] : 1995 28 From: Peggy Flynn DO PCP: Xenia Lane PA-C Status:REG S DC Discharge Instructions Diet Discharge Diet: No restrictions DC O2, CPAP, BIPAP needs Home O2 Discharge instructions: No Dressing / Incision Discharge Activity: Return to Normal Activity, May Shower and May Take a Tub Bath (after 1 week) May resume sexual activity in: 1-2 weeks Weight Bearing Status: Weight bearing as tolerated Lifting Restrictions: none Dressing / Incision Call your doctor if you observe: Fever of 101 or Higher, Using more than 1 pad per hour, Shortness of breath and Uncontrolled pain Follow Up Care Please Follow Up With: Peggy Flynn DO When: Call [phone] to schedule appointment. Test Results: Test results from this visit will be discussed in further detail at your follow- up appointment, if applicable. Discharge Plan Admission Primary Reason for Your Visit: suction dilation and curettage Attending Provider: Peggy Flynn Primary Care Provider: Xenia Lane Instructions Print Language: Brazilian Discharge Orders/Prescriptions Prescriptions: New oxycodone 5 mg capsule 5 mg PO Q4H PRN (Reason: pain) 3 Days Qty: 14 0RF Continued calcium citrate 250 mg calcium tablet 500 mg PO TID cholecalciferol (vitamin D3) [Vitamin D3] 50 mcg (2,000 unit) capsule 100 mcg PO DAILY multivitamin [Multiple Vitamins] Tablet 1 tab PO DAILY Referrals / Follow Up: Xenia Lane PA-C [Primary Care Provider] - Disposition Disposition (needs filled in before D/C Order can be placed): Home, Self Care 08/01/24 1114<Electronically signed by Peggy Flynn DO>Peggy Flynn DO CC: RUMA Lane ~ Signed [facility] Work Phone: evaluation noteNo assessment information available [facility] Work Phone: evaluation note* Diagnosis Onset Date Resolution Status History of recurrent miscarriages acute Morbid obesity acute Possible exposure to STD non eactive Encounter for routine gynecological examination noneactive [facility] Work Phone: Evaluation note* Diagnosis Onset Date Resolution Status History of recurrent miscarriages acute Morbid obesity acute Possible exposure to STD non eactive Encounter for routine gynecological examination noneactive Miscarriage acute Morbid obesity acute Prediabetes acute [facility] Work Phone: evaluation note* Diagnosis Onset Date Resolution Status History of recurrent miscarriages acute Morbid obesity acute Possible exposure to STD non eactive Encounter for routine gynecological examination noneactive Miscarriage acute Morbid obesity acute Prediabetes acute Abdominal pain chronic Chronic diarrhea chronic Rectal bleeding chronic [facility] Work Phone: evaluation note* Diagnosis Onset Date Resolution Status History of recurrent miscarriages acute Morbid obesity acute Possible exposure to STD non eactive Encounter for routine gynecological examination noneactive Morbid obesity acute Prediabetes acute Miscarriage resolved Abdominal pain chronic Chronic diarrhea chronic Rectal bleeding chronic Encounter for IUD insertion noneactive [facility] Work Phone: Evaluation note* Diagnosis Onset Date Resolution Status Morbid obesity acute Prediabetes acute Miscarriage resolved Abdominal pain chronic Chronic diarrhea chronic Rectal bleeding chronic Encounter for IUD insertion noneactive Depression acute IUD (intrauterine device) in place acute Morbid obesity acute Irritable bowel syndrome with diarrhea chronic [facility] Work Phone: Evaluation note* Diagnosis Onset Date Resolution Status Abdominal pain chronic Chronic diarrhea chronic Rectal bleeding chronic Encounter for IUD insertion noneactive Depression acute IUD (intrauterine device) in place acute Morbid obesity acute Irritable bowel syndrome with diarrhea chronic [facility] Work Phone: evaluation note* Diagnosis Onset Date Resolution Status Depression acute IUD (intrauterine device) in place acute Morbid obesity resolved Irritable bowel syndrome with diarrhea chronic Binge-eating disorder, moderate acute BMI 60.0-69.9, adult acute Depression acute Hirsutism acute IUD (intrauterine device) in place acute Other obesity acute Prediabetes acute Hypertension chronic [facility] Work Phone: Evaluation note* Diagnosis Chronic midline low back pain without sciatica- Primary Prediabetes Other abnormal glucose Morbid obesity with BMI of 60.0-69.9, adult (HCC) documented in this encounter [facility]Evaluation note* Diagnosis Prediabetes Other abnormal glucose Morbid obesity with BMI of 60.0-69.9, adult (HCC) Chronic midline low back pain without sciatica documented in this encounter [facility]Evaluation note* Diagnosis Daytime sleepiness- Primary Prediabetes Other abnormal glucose Morbid obesity with BMI of 60.0-69.9, adult (HCC) Chronic midline low back pain without sciatica Pre-operative laboratory examination Pre-procedural laboratory examination Pre-operative clearance Unspecified pre-operative examination Functional dyspepsia Dyspepsia and other specified disorders of function of stomach documented in this encounter [facility] note* Diagnosis Daytime sleepiness- Primary Prediabetes Other abnormal glucose Morbid obesity with BMI of 60.0-69.9, adult (HCC) Chronic midline low back pain without sciatica Pre-operative laboratory examination Pre-procedural laboratory examination Pre-operative clearance Unspecified pre-operative examination Functional dyspepsia Dyspepsia and other specified disorders of function of stomach documented in this encounter [facility]* Diagnosis Onset Date Resolution Status Irritable bowel syndrome with diarrhea chronic Binge-eating disorder, moderate acute BMI 60.0-69.9, adult acute Depression acute Hirsutism acute IUD (intrauterine device) in place acute Prediabetes acute Hypertension chronic Other obesity chronic Daytime hypersomnia acute Other obesity chronic [facility] Work Phone: Evaluation note* Diagnosis Prediabetes- Primary Other abnormal glucose Low back pain, unspecified back pain laterality, unspecified chronicity, unspecified whether sciatica present BMI 60.0-69.9, adult (HCC) Morbid obesity due to excess calories (HCC) Functional dyspepsia Dyspepsia and other specified disorders of function of stomach documented in this encounter [facility]* Diagnosis Morbid obesity with BMI of 60.0-69.9, adult (HCC)- Primary Functional dyspepsia Dyspepsia and other specified disorders of function of stomach documented in this encounter [facility]* Diagnosis Prediabetes- Primary Other abnormal glucose Low back pain, unspecified back pain laterality, unspecified chronicity, unspecified whether sciatica present BMI 60.0-69.9, adult (HCC) Morbid obesity due to excess calories (HCC) Functional dyspepsia Dyspepsia and other specified disorders of function of stomach documented in this encounter [facility]* Diagnosis Daytime sleepiness- Primary Prediabetes Other abnormal glucose Morbid obesity with BMI of 60.0-69.9, adult (HCC) Chronic midline low back pain without sciatica Pre-operative laboratory examination Pre-procedural laboratory examination Pre-operative clearance Unspecified pre-operative examination Functional dyspepsia Dyspepsia and other specified disorders of function of stomach documented in this encounter [facility]* Diagnosis Vitamin D deficiency- Primary Low serum ferritin level Low serum iron Low vitamin B12 level Abnormal serum total protein level High cholesterol Pure hypercholesterolemia Functional dyspepsia Dyspepsia and other specified disorders of function of stomach documented in this encounter [facility]* Diagnosis Paroxysmal atrial fibrillation (HCC)- Primary Atrial fibrillation Functional dyspepsia Dyspepsia and other specified disorders of function of stomach documented in this encounter [facility]* Diagnosis Paroxysmal atrial fibrillation (HCC)- Primary Atrial fibrillation Functional dyspepsia Dyspepsia and other specified disorders of function of stomach [facility] Diagnosis Paroxysmal atrial fibrillation (HCC)- Primary Atrial fibrillation MOE on CPAP Prediabetes Other abnormal glucose Mixed hyperlipidemia Functional dyspepsia Dyspepsia and other specified disorders of function of stomach documented in this encounter [facility]* Diagnosis Functional dyspepsia Dyspepsia and other specified disorders of function of stomach Mixed hyperlipidemia MOE on CPAP Atrial fibrillation with RVR (HCC) Chronic superficial gastritis without bleeding Morbid obesity with BMI of 60.0-69.9, adult (HCC) documented in this encounter [facility] [facility] Paroxysmal atrial fibrillation (HCC) Atrial fibrillation documented in this encounter [facility]* Diagnosis Prediabetes- Primary Other abnormal glucose Low back pain, unspecified back pain laterality, unspecified chronicity, unspecified whether sciatica present BMI 60.0-69.9, adult (HCC) Morbid obesity due to excess calories (HCC) documented in this encounter [facility]* Diagnosis Pre-operative clearance- Primary Unspecified pre-operative examination MOE (obstructive sleep apnea) Obstructive sleep apnea (adult) (pediatric) Morbid obesity with BMI of 60.0-69.9, adult (HCC) documented in this encounter [facility]* Diagnosis Prediabetes- Primary Other abnormal glucose Low back pain, unspecified back pain laterality, unspecified chronicity, unspecified whether sciatica present BMI 60.0-69.9, adult (HCC) Morbid obesity due to excess calories (HCC) documented in this encounter [facility]* Diagnosis Vitamin D deficiency- Primary Low vitamin B12 level Abnormal serum total protein level documented in this encounter [facility]* Diagnosis At high risk for venous thromboembolism (VTE)- Primary Morbid (severe) obesity due to excess calories (HCC) documented in this encounter [facility]* Diagnosis Morbid obesity with BMI of 60.0-69.9, adult (HCC)- Primary MOE on CPAP Prediabetes Other abnormal glucose Mixed hyperlipidemia Back pain, unspecified back location, unspecified back pain laterality, unspecified chronicity Hepatic steatosis Other chronic nonalcoholic liver disease Morbid (severe) obesity due to excess calories (HCC) [facility] Diagnosis Morbid obesity with BMI of 60.0-69.9, adult (HCC)- Primary Morbid (severe) obesity due to excess calories (HCC) [facility]* Diagnosis Acute cystitis without hematuria- Primary Morbid (severe) obesity due to excess calories (HCC) [facility] Diagnosis Morbid obesity with BMI of 60.0-69.9, adult (HCC)- Primary Morbid obesity with BMI of 60.0-69.9, adult (HCC) Morbid (severe) obesity due to excess calories (HCC) MOE on CPAP Prediabetes Other abnormal glucose Mixed hyperlipidemia Hypertension Unspecified essential hypertension Hepatic steatosis Other chronic nonalcoholic liver disease [facility]* Diagnosis Dizziness- Primary Dizziness and giddiness Hemoperitoneum Hemoperitoneum (nontraumatic) Leg swelling Swelling of limb At high risk for venous thromboembolism (VTE) Morbid obesity with BMI of 60.0-69.9, adult (HCC) documented [facility]* Diagnosis Chronic midline low back pain without sciatica- Primary Prediabetes Other abnormal glucose Morbid obesity with BMI of 60.0-69.9, adult (HCC) documented [facility]* Diagnosis Encounter for postoperative care- Primary Deficiency of multiple nutrient elements Other nutritional deficiency Intestinal malabsorption, unspecified type Morbid obesity with BMI of 60.0-69.9, adult (HCC) [facility]* Diagnosis Dehydration- Primary [facility]* Diagnosis Dehydration- Primary [facility]* Diagnosis Painless pancreatitis- Primary Chronic pancreatitis Acute pancreatitis, unspecified complication status, unspecified pancreatitis type Nausea and vomiting, unspecified vomiting type Severe malnutrition (CMS/HCC) (HCC) Nutritional marasmus On total parenteral nutrition Paroxysmal atrial fibrillation (HCC) Atrial fibrillation Acute pancreatitis, unspecified complication status, unspecified pancreatitis type Severe malnutrition (CMS/HCC) (HCC) Nutritional marasmus Hypokalemia Hypopotassemia History of gastric bypass Atrial fibrillation with RVR (HCC) MOE on CPAP Prediabetes Other abnormal glucose Mixed hyperlipidemia Morbid obesity with BMI of 60.0-69.9, adult (HCC) documented [facility]* Diagnosis Encounter for postoperative care- Primary MOE on CPAP Primary hypertension Unspecified essential hypertension Prediabetes Other abnormal glucose Deficiency of multiple nutrient elements Other nutritional deficiency Intestinal malabsorption, unspecified type Morbid obesity with BMI of 50.0-59.9, adult (HCC) Acute pancreatitis, unspecified complication status, unspecified pancreatitis type [facility] Diagnosis Paroxysmal atrial fibrillation (HCC)- Primary Atrial fibrillation Atrial fibrillation with RVR (HCC) Orthostatic hypotension [facility] Diagnosis Paroxysmal atrial fibrillation (HCC)- Primary Atrial fibrillation Atrial fibrillation with RVR (HCC) Orthostatic hypotension [facility] Diagnosis Encounter for postoperative care- Primary MOE on CPAP Primary hypertension Unspecified essential hypertension Prediabetes Other abnormal glucose Deficiency of multiple nutrient elements Other nutritional deficiency Intestinal malabsorption, unspecified type Morbid obesity with BMI of 50.0-59.9, adult (HCC) Acute pancreatitis, unspecified complication status, unspecified pancreatitis type [facility] Diagnosis Intestinal malabsorption, unspecified type- Primary Deficiency of multiple nutrient elements Other nutritional deficiency MOE on CPAP Primary hypertension Unspecified essential hypertension Morbid obesity with BMI of 50.0-59.9, adult ([facility]) History of Sandra-en-Y gastric bypass Lightheadedness Dizziness and giddiness documented [facility] Diagnosis Paroxysmal atrial fibrillation (HCC)- Primary Atrial fibrillation [facility]* Diagnosis MOE (obstructive sleep apnea)- Primary Obstructive sleep apnea (adult) (pediatric) Class 3 severe obesity due to excess calories with serious comorbidity and body mass index (BMI) of 50.0 to 59.9 in adult ([facility]) [facility] Diagnosis Transaminitis- Primary Nonspecific elevation of levels of transaminase or lactic acid dehydrogenase (LDH) Transaminitis Nonspecific elevation of levels of transaminase or lactic acid dehydrogenase (LDH) Elevated alkaline phosphatase level Intractable nausea Anorexia [facility] Diagnosis Transaminitis- Primary Nonspecific elevation of [...] with vomiting, unspecified documented in this encounter [facility]* Diagnosis Intestinal malabsorption, unspecified type- Primary Deficiency of multiple nutrient elements Other nutritional deficiency History of gastric bypass Back pain, unspecified back location, unspecified back pain laterality, unspecified chronicity Primary hypertension Unspecified essential hypertension MOE on CPAP Morbid obesity with BMI of 45.0-49.9, adult (HCC) Elevated LFTs Other abnormal blood chemistry Intertrigo Other specified erythematous condition [facility] Diagnosis MOE (obstructive sleep apnea) [...] not elsewhere classified documented in this encounter [facility]* Diagnosis Paroxysmal atrial fibrillation (HCC)- [...] loss without current [facility] Diagnosis Paroxysmal atrial fibrillation (HCC)- Primary Atrial fibrillation Primary hypertension Unspecified essential hypertension MOE on CPAP Prediabetes- Primary Other abnormal glucose Hypertension, unspecified type Deficiency of other specified B group vitamins Intestinal malabsorption, unspecified type Screening, lipid [facility] Author Trey Malone [facility] June 11, 2022 10:38am Note Date/Time June 11, 2022 10: 38am [facility] Medical Records Department [address] [place] [address] History & Physical Exam 06/11/22 1038 MR#: [id number] Acct: [id number] Name: ANNE MARIE PETERSON Rep #[id number] : 1995 26 From: Trey Malone DO PCP: Xenia Lane PA-C Status:REG S DC Location: [place] [address] History and Physical Date of Admission: 06/11/22 [...] Mood: euthymic mood Quality Reporting Tobacco Screening ([facility] 138) Smoking Status: Never smoker Assessment [...] ? 06/11/22 1038 <Electronically signed by Trey Malone DO> Cosigner Signature (if applicable): CC: RUMA Lane; Trey Malone DO~ Signed [facility] Work Phone: Hospital Discharge instructions* Attachments The following attachments cannot be sent through Care Everywhere. * Upper GI Endoscopy Discharge Instructions (Brazilian) documented in this [facility] Discharge instructions Additional Instructions Please follow-up with your GROUP WORKER for repeat evaluation and return to the ER should [facility] have any [facility] Phone: Instructions* Attachments The following attachments cannot be sent through Care Everywhere. * Heart Healthy Diet (Brazilian) * Atrial Fibrillation (Brazilian) documented in this [facility] for referral (narrative)* Consultation (Routine) - Pending Review Specialty Diagnoses / Procedures Referred By Contac t Referred To Contact Pulmonary Disease / Pulmonology Diagnoses Morbid obesity with BMI of 60.0-69.9, adult (HCC) Daytime sleepiness Pre-operative clearance Procedures HI OFFICE/OUTPATIENT NEW HIGH MDM 60-74 MINUTES Miley Moise PA [address] [place] [address] [facility] [address] [place] [address] Referral ID Status Reason Start Date Expiration Date Visits Requested Visits Authorized [id number] Pending Review Specialty Services Required 10/06/2022 10/06/2023 1 1 * Consultation (Elective) - Pending Review Specialty Diagnoses / Procedures Referred By Contac t Referred To Contact Cardiology Diagnoses Morbid obesity with BMI of 60.0-69.9, adult (HCC) Daytime sleepiness Pre-operative clearance Procedures HI OFFICE/OUTPATIENT NEW HIGH MDM 60-74 MINUTES Miley Moise PA [address] [place] [address] [facility] [address] [place] [address] Referral ID Status Reason Start Date Expiration Date Visits Requested Visits Authorized [id number] Pending Review Specialty Services Required 10/06/2022 10/06/2023 1 1 [facility] for referral (narrative)* Consultation (Routine) - Pending Review Specialty Diagnoses / Procedures Referred By Contac t Referred To Contact Pulmonary Disease / Pulmonology Diagnoses Morbid obesity with BMI of 60.0-69.9, adult (HCC) Daytime sleepiness Pre-operative clearance Procedures HI OFFICE/OUTPATIENT NEW HIGH MDM 60-74 MINUTES Miley Moise PA [address] [place] [address] [facility] [address] [place] [address] Referral ID Status Reason Start Date Expiration Date Visits Requested Visits Authorized [id number] Pending Review Specialty Services Required 10/06/2022 10/06/2023 1 1 * Consultation (Elective) - Pending Review Specialty Diagnoses / Procedures Referred By Contac t Referred To Contact Cardiology Diagnoses Morbid obesity with BMI of 60.0-69.9, adult (HCC) Daytime sleepiness Pre-operative clearance Procedures HI OFFICE/OUTPATIENT NEW HIGH MDM 60-74 MINUTES Miley Moise PA [address] [place] [address] [facility] [address] [place] [address] Referral ID Status Reason Start Date Expiration Date Visits Requested Visits Authorized [id number] Pending Review Specialty Services Required 10/06/2022 10/06/2023 1 1 [facility] for referral (narrative)* Consultation (Routine) - Pending Review Specialty Diagnoses / Procedures Referred By Contac t Referred To Contact Pulmonary Disease / Pulmonology Diagnoses Morbid obesity with BMI of 60.0-69.9, adult (HCC) Daytime sleepiness Pre-operative clearance Procedures HI OFFICE/OUTPATIENT NEW HIGH MDM 60-74 MINUTES Miley Moise PA [address] [place] [address] [facility] [address] [place] [address] Referral ID Status Reason Start Date Expiration Date Visits Requested Visits Authorized [id number] Pending Review Specialty Services Required 10/06/2022 10/06/2023 1 1 * Consultation (Elective) - Closed Specialty Diagnoses / Procedures Referred By Contac t Referred To Contact Cardiology Diagnoses Morbid obesity with BMI of 60.0-69.9, adult (HCC) Daytime sleepiness Pre-operative clearance Procedures HI OFFICE/OUTPATIENT NEW HIGH MDM 60-74 MINUTES Miley Moise PA [address] [address] [address] [place] [address] Referral ID Status Reason Start Date Expiration Date V isits Requested Visits Authorized [id number] Closed Specialty Services Required 10/06/2022 10/06/2023 1 1 Murphy Scott for referral (narrative)* Consultation (Routine) - Pending Review Specialty Diagnoses / Procedures Referred By Contac t Referred To Contact Cardiology Diagnoses Paroxysmal atrial fibrillation (HCC) Atrial fibrillation with RVR (HCC) Procedures HI OFFICE/OUTPATIENT NEW HIGH MDM 60 MINUTES Matteo Abreu MD [address] [place] [address] [address] [facility] [address] [place] [address] Referral ID Status Reason Start Date Expiration Date Visits Requested Visits Authorized [id number] Pending Review Specialty Services Required 07/05/2023 07/04/2024 1 1 Murphy Scott for referral (narrative)No reason for referral information [facility]WK[facility] Work Phone: Summary Purpose Family History No [...] Will No March 12 7:40am Power of Nut Chopper No March 12, 2021 7:40am Advance Directive Response Recorded Date/ Time Living Will No March 12 8:40am Power of Nut Chopper No March 12, 2021 8:40am Advance Directive Response Recorded Date/ Time Living Will No June 08, 2022 1:47pm Power of Nut Chopper No June 08 1:47pm Latest Code Status [...] No June 08, 2022 1:47pm Power of Nut Chopper No June 08 1:47pm Living Will No March 10 4:12pm Power of Nut Chopper No March 10, 2024 4:12pm Advance Directive Response Recorded Date/ Time Living Will No June 08, 2022 1:47pm Do you have a Healthcare Power of Nut Chopper? No June 08, 2022 1:47pm Living Will No March 10 4:12pm Do you have a Healthcare Power of Nut Chopper? No March 10, 2024 4:12pm Advance Directive Response Recorded Date/ Time Living Will No June 08, 2022 1:47pm Do you have a Healthcare Power of Nut Chopper? No June 08, 2022 1:47pm Do you have a Healthcare Power of Nut Chopper? No June 16, 2024 11:46pm Living Will No March 10 4:12pm Do you have a Healthcare Power of Nut Chopper? No March 10, 2024 4:12pm Advance Directive Response Recorded Date/ Time Living Will No June 08, 2022 1:47pm Do you have a Healthcare Power of Nut Chopper? No June 08, 2022 1:47pm Do you have a Healthcare Power of Nut Chopper? No June 16, 2024 11:46pm Do you have a Healthcare Power of Nut Chopper? No June 27, 2024 11:34pm Living Will No March 10 4:12pm Do you have a Healthcare Power of Nut Chopper? No March 10, 2024 4:12pm Advance Directive Response Recorded Date/ Time Living Will No June 08, 2022 1:47pm Do you have a Healthcare Power of Nut Chopper? No June 08, 2022 1:47pm Do you have a Healthcare Power of Nut Chopper? No June 16, 2024 11:46pm Do you have a Healthcare Power of Nut Chopper? No June 27, 2024 11:34pm Do you have a Healthcare Power of Nut Chopper? 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 Miscarriage/R/O ectopic Reason for Visit History of recurrent miscarriages Morbid obesity Possible exposure to STD Encounter for routine gynecological examination Miscarriage Morbid obesity Prediabetes Chief Complaint E ORDER E ORDER 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 Miscarriage/R/O ectopic Consult ABDOMINAL PAIN Reason for Visit History of recurrent miscarriages Morbid obesity Possible exposure to STD Encounter for routine gynecological examination Miscarriage Morbid obesity Prediabetes Abdominal pain Chronic diarrhea Rectal bleeding Chief Complaint E ORDER E ORDER 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 Miscarriage/R/O ectopic Consult ABDOMINAL PAIN IUD INSERTION Reason for Visit History of recurrent miscarriages Morbid obesity Possible exposure to STD Encounter for routine gynecological examination Morbid obesity Prediabetes Miscarriage Abdominal pain Chronic diarrhea Rectal bleeding Encounter for IUD insertion Chief Complaint E ORDER E ORDER 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 Miscarriage/R/O ectopic Consult ABDOMINAL PAIN IUD INSERTION MORBID OBESITY Reason for Visit History of recurrent miscarriages Morbid obesity Possible exposure to STD Encounter for routine gynecological examination Morbid obesity Prediabetes Miscarriage Abdominal pain Chronic diarrhea Rectal bleeding Encounter for IUD insertion Chief Complaint E ORDER E ORDER 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 Miscarriage/R/O ectopic Consult [...] 10:56am Complete July 04, 2024 10:56 am Chief Complaint Admit Date 6 M FU April 21, 2024 9:06am [...] not shorten July 04, 2024 10 :56am SPOTTING POST MISCARRIAGE July 29, 2024 9:23am Reason for Visit Admit Date Elevated liver enzymes April 21 9:06am BMI [...] 10:56am Complete July 04, 2024 10:56 am Complete August 01, 2024 9:32 am Retained products of conception July 9:32am Chief Complaint Admit Date 6 M FU April 21, 2024 9:06am [...] not shorten July 04, 2024 10 :56am SPOTTING POST MISCARRIAGE July 29, 2024 9:23am 2 week post-op suction D&C for retained products August 14, 2024 7:59am Reason for Referral Specialty Diagnoses / Procedures Referred By Contac t Referred To Contact Cardiology Diagnoses Paroxysmal atrial fibrillation (HCC) Procedures Transthoracic echocardiogram (TTE) complete with contrast, bubble, strain, and 3D PRN HI ECHO TTHRC R-T 2D W/WOM-MODE COMPL SPEC&COLR D HI TTE W OR WO FOL WCON,DOPPLER Matteo Abreu MD [address] [place] [address] Referral ID Status Reason Start Date Expiration Date V isits Requested Visits Authorized [id number] Pending Review 12/22/2022 12/22/2023 1 1 Referral ID Status Reason Start Date Expiration Date Visits Re quested Visits Authorized [id number] Closed 12/22/2022 12/22/2023 1 1 Specialty Diagnoses / Procedures Referred By Contac t Referred To Contact Diagnoses At high risk for venous thromboembolism (VTE) Miley Moise PA [address] [place] [address] Referral ID Status Reason Start Date Expiration Date Visits Re quested Visits Authorized [id number] Closed 1 1 Specialty Diagnoses / Procedures Referred By Contac t Referred To Contact Sleep Medicine Diagnoses MOE (obstructive sleep apnea) Procedures Home sleep test Hyun Hirsch PA-C [address] Mikael [address] [place] [address] [facility] [address] [place] [address] Referral ID Status Reason Start Date Expiration Date V isits Requested Visits Authorized [id number] Authorized 08/23/2023 08/17/2024 1 1 Additional Source Comments INFORMATION SOURCE (unrecogn ized section and content) DATE CREATED AUTHOR 10/20/2019 [facility] DATE CREATED AUTHOR AUTHOR'S ORGANIZ ATION 01/25/2020 [facility] DATE CREATED AUTHOR AUTHOR'S ORGANIZ ATION 10/26/2023 [facility] ([place]) DATE CREATED AUTHOR AUTHOR'S ORGANIZ ATION 10/31/2023 [facility] DATE CREATED AUTHOR AUTHOR'S ORGANIZ ATION 08/17/2024 [facility] DATE CREATED AUTHOR AUTHOR'S ORGANIZ ATION 08/18/2024 [facility] DATE CREATED AUTHOR AUTHOR'S ORGANIZ ATION 08/23/2024 [facility] DATE CREATED AUTHOR AUTHOR'S ORGANIZ ATION 11/16/2024 [facility] Goals (unrecognized section and content) Goals may [...] content) Team Status: Active Member Role Status [facility] PA, PA-C Primary Care Provider Active Team Status: Inactive Member Role Status [facility] PA, PA-C Primary Care Provider, Referri ng Provider Active Lidya Booker COMPETENCY EVALUATED NURSE AIDE, COMPETENCY EVALUATED NURSE AIDE-C Attending Provider Active Team Status: Inactive Member Role Status [facility] PA, PA-C Primary Care Provider Active Lidya Booker COMPETENCY EVALUATED NURSE AIDE, COMPETENCY EVALUATED NURSE AIDE-C Attending Provider Active Team Status: Inactive Member Role Status [facility] PA, PA-C Primary Care Provider Active Lidya Booker COMPETENCY EVALUATED NURSE AIDE, COMPETENCY EVALUATED NURSE AIDE-C Attending Provider, Referring Provider Active Team Status: Active Member Role Status [facility] PA, PA-C Primary Care Provider Active Lidya Booker COMPETENCY EVALUATED NURSE AIDE, COMPETENCY EVALUATED NURSE AIDE-C Attending Provider Active Team Status: Active Member Role Status [facility] PA, PA-C Primary Care Provider Active Lidya Booker COMPETENCY EVALUATED NURSE AIDE, COMPETENCY EVALUATED NURSE AIDE-C Attending Provider, Referring Provider Active Team Status: Inactive Member Role Status [facility] PA, PA-C Primary Care Provider, Referri ng Provider Active Dr. Silviano Daley MD Attending Provider Active Team Status: Inactive Member Role Status [facility] PA, PA-C Primary Care Provider, Referri ng Provider Active Stephany Velez COMPETENCY EVALUATED NURSE AIDE, COMPETENCY EVALUATED NURSE AIDE-C Attending Provider Active Team Status: Inactive Member Role Status [facility] PA, PA-C Primary Care Provider Active Stephany Velez COMPETENCY EVALUATED NURSE AIDE, COMPETENCY EVALUATED NURSE AIDE-C Attending Provider, Referrin g Provider Active Dr. Silviano Daley MD Other Provider Active Team Status: Active Member Role Status [facility] PA, PA-C Primary Care Provider Active Stephany Velez COMPETENCY EVALUATED NURSE AIDE, COMPETENCY EVALUATED NURSE AIDE-C Attending Provider Active Team Status: Inactive Member Role Status [facility] PA, PA-C Primary Care Provider Active Stephany Velez COMPETENCY EVALUATED NURSE AIDE, COMPETENCY EVALUATED NURSE AIDE-C Attending Provider Active Team Status: Inactive Member Role Status [facility] PA, PA-C Primary Care Provider Active Dr. Silviano Daley MD Attending Provider Active Team Status: Active Member Role Status [facility] PA, PA-C Primary Care Provider, Referri ng Provider Active Dr. Trey Friend , DO Attending Provider, Other Prov ider Active Team Status: Inactive Member Role Status [facility] PA, PA-C Primary Care Provider, Referri ng Provider Active Dr. Trey Malone , DO Attending Provider Active Team Status: Active Member Role Status Dates [facility] PA, PA-C Primary Care Provider Active Dr. Silviano Daley MD Attending Provider, Referr ing Provider Active Team Status: Inactive Member Role Status Dates [facility] PA, PA-C Primary Care Provider, Referri ng Provider Active Dr. Peggy Flynn , Attending Provider Activ e Team Status: Inactive Member Role Status Dates [facility] PA, PA-C Primary Care Provider Active Dr. Silviano Daley MD Attending Provider, Referr ing Provider Active Enterprise Manager Relationship Specialty Start Date End Date Xenia Lane [address] [facility] [place] [phone] PCP - General Family Medicine 09/07/22 Silviano Daley [address] [place] [phone] Obstetrics and Gynecology 09/10/22 Enterprise Manager Relationship Specialty Start Date End Date Zakia Laneberly [address] [facility] [place] [phone] PCP - General Family Medicine 09/07/22 Silviano Daley [address] [facility] 3 [place] [address] Obstetrics and Gynecology 09/10/22 Memo Campbell MD [address] [place] [address] 260 [place] [address] Surgeon General Surgery 09/30/22 Enterprise Manager Relationship Specialty Start Date End Date Zakia Laneberly [address] [facility] [place] [phone] PCP - General Family Medicine 09/07/22 Silviano Daley [address] [place] [address] Obstetrics and Gynecology 09/10/22 Memo Campbell MD [address] [place] [address] [address] [place], [place] [id number] Surgeon General Surgery 09/30/22 Enterprise Manager Relationship Specialty Start Date End Date Xenia [address] [facility] [place] [address] PCP - General Family Medicine 09/07/22 Silviano Daley [address] [place] [address] Obstetrics and Gynecology 09/10/22 Memo Campbell MD [address] [place] [address] [address] [place], [place] [id number] Surgeon General Surgery 09/30/22 Team Status: Inactive Member Role Status Dates Xenia SUZANNA eLón-C Primary Care Provider, Referri ng Provider Active Beverley King COMPETENCY EVALUATED NURSE AIDE, COMPETENCY EVALUATED NURSE AIDE-C Attending Provider Active Team Status: Inactive Member Role Status Dates XeniaSUZANNA Laguerre-Manoj Primary Care Provider Active Beverley King COMPETENCY EVALUATED NURSE AIDE, COMPETENCY EVALUATED NURSE AIDE-C Attending Provider, Referrin g Provider Active Enterprise Manager Relationship Specialty Start Date End Date Xenia [address] [facility] [place] [phone] PCP - General Family Medicine 09/07/22 Silviano Daley [address] [place] [address] Obstetrics and Gynecology 09/10/22 Memo Campbell MD [address] [place] [address] Surgeon General Surgery 09/30/22 Enterprise Manager Relationship Specialty Start Date End Date Xenia [address] [place] [phone] PCP - General Family Medicine 09/07/22 Silviano Daley [address] [place] [address] Obstetrics and Gynecology 09/10/22 Memo Campbell MD [address] [place] [address] [address] [place] [address] Surgeon General Surgery 09/30/22 Enterprise Manager Relationship Specialty Start Date End Date Xenia [address] [place] [phone] PCP - General Family Medicine 09/07/22 Silviano Daley [address] [place] [phone] Obstetrics and Gynecology 09/10/22 Memo Campbell MD [address] [place] [address] [address] [place] [address] Surgeon General Surgery 09/30/22 Enterprise Manager Relationship Specialty Start Date End Date Xenia [address] [place] [phone] PCP - General Family Medicine 09/07/22 Silviano Daley [address] [place] [address] Obstetrics and Gynecology 09/10/22 Memo Campbell MD [address] [place] [address] Surgeon General Surgery 09/30/22 Enterprise Manager Relationship Specialty Start Date End Date Xenia [address] [place] [phone] PCP - General Family Medicine 09/07/22 Silviano Daley [address] [place] [address] Obstetrics and Gynecology 09/10/22 Memo Campbell MD [address] [place] [address] Surgeon General Surgery 09/30/22 Enterprise Manager Relationship Specialty Start Date End Date X[address] [place] [phone] PCP - General Family Medicine 09/07/22 Silviano Daley [address] [place] [address] Obstetrics and Gynecology 09/10/22 Memo Campbell MD [address] [place] [address] Surgeon General Surgery 09/30/22 Enterprise Manager Relationship Specialty Start Date End Date e[address] [place] [phone] PCP - General Family Medicine 09/07/22 Silviano Daley [address] [place] [address] Obstetrics and Gynecology 09/10/22 Memo Campbell MD [address] [place], [place] [id number] Surgeon General Surgery 09/30/22 Enterprise Manager Relationship Specialty Start Date End Date Xenia [address] [facility] [place] [phone] PCP - General Family Medicine 09/07/22 Silviano Daley [address] [place] [address] Obstetrics and Gynecology 09/10/22 Memo Campbell MD [address] [place] [address] Street [address] [place] [address] Surgeon General Surgery 09/30/22 Enterprise Manager Relationship Specialty Start Date End Date Xenia [address] [facility] [place] [phone] PCP - General Family Medicine 09/07/22 Silviano Daley [address] [place] [address] Obstetrics and Gynecology 09/10/22 Memo Campbell MD [address] [place], [place] [address] Surgeon General Surgery 09/30/22 Enterprise Manager Relationship Specialty Start Date End Date Xenia [address] [facility] [place] [phone] PCP - General Family Medicine 09/07/22 Silviano Daley [address] [place] [address] Obstetrics and Gynecology 09/10/22 Memo Campbell MD [address] [place] [address] [address] [place], [place] [address] Surgeon General Surgery 09/30/22 Enterprise Manager Relationship Specialty Start Date End Date Xenia [address] [facility] [place] [phone] PCP - General Family Medicine 09/07/22 Silviano Daley [address] [place] [phone] Obstetrics and Gynecology 09/10/22 Memo Campbell MD [address] [place] [address] [address] [place] [address] Surgeon General Surgery 09/30/22 Enterprise Manager Relationship Specialty Start Date End Date Xenia [address] [facility] [place] [phone] PCP - General Family Medicine 09/07/22 Silviano Daley [address] [place] [address] Obstetrics and Gynecology 09/10/22 Memo Campbell MD [address] [place] [address] [address] [place] [address] Surgeon General Surgery 09/30/22 Enterprise Manager Relationship Specialty Start Date End Date Xenia [address] [facility] [place] [address] PCP - General Family Medicine 09/07/22 Silviano Daley [address] [place] [address] Obstetrics and Gynecology 09/10/22 Memo Campbell MD [address] [place] [address] [address] [place] [address] Surgeon General Surgery 09/30/22 Zully Anton, RN Registered Nurse Bariatrics 03/29/23 Enterprise Manager Relationship Specialty Start Date End Date Zakia Laneberly [address] [facility] [place] [phone] PCP - General Family Medicine 09/07/22 Silviano Daley [address] [place] [address] Obstetrics and Gynecology 09/10/22 Memo Campbell MD [address] [place] [address] [address] [place] [address] Surgeon General Surgery 09/30/22 Zully Anton, RN Registered Nurse Bariatrics 03/29/23 Enterprise Manager Relationship Specialty Start Date End Date Domingo Xenia [address] [facility] [place] [phone] PCP - General Family Medicine 09/07/22 Silviano Daley [address] [place] [address] Obstetrics and Gynecology 09/10/22 Memo Campbell MD [address] [place] [address] Surgeon General Surgery 09/30/22 Zully Anton RN Registered Nurse Bariatrics 03/29/23 Enterprise Manager Relationship Specialty Start Date End Date HermistonZakiaXenia [address] [facility] [place] [phone] PCP - General Family Medicine 09/07/22 Silviano Daley [address] [place] [address] Obstetrics and Gynecology 09/10/22 Memo Campbell MD [address] [place] [address] Surgeon General Surgery 09/30/22 Zully Anton RN Registered Nurse Bariatrics 03/29/23 Enterprise Manager Relationship Specialty Start Date End Date HermistonXenia [address] [facility] [place] [phone] PCP - General Family Medicine 09/07/22 Silviano Daley [address] [place] [address] Obstetrics and Gynecology 09/10/22 Memo Campbell MD [address] [place] [address] Surgeon General Surgery 09/30/22 Anton, Zully, RN Registered Nurse Bariatrics 03/29/23 Enterprise Manager Relationship Specialty Start Date End Date Xenia [address] [facility] [place] [phone] PCP - General Family Medicine 09/07/22 Silviano Daley [address] [place] [phone] Obstetrics and Gynecology 09/10/22 Memo Campbell MD [address] [place] [address] Surgeon General Surgery 09/30/22 Zully Anton RN Registered Nurse Bariatrics 03/29/23 Enterprise Manager Relationship Specialty Start Date End Date Domingo Xenia [address] [facility] [place] [phone] PCP - General Family Medicine 09/07/22 Silviano Daley [address] [place] [address] Obstetrics and Gynecology 09/10/22 Memo Campbell MD [address] [place] [address] Surgeon General Surgery 09/30/22 Zully Anton RN Registered Nurse Bariatrics 03/29/23 Enterprise Manager Relationship Specialty Start Date End Date Zakia Laneberly [address] [facility] [place] [phone] PCP - General Family Medicine 09/07/22 Silviano Daley [address] [place] [address] Obstetrics and Gynecology 09/10/22 Memo Campbell MD [address] [place] [address] Surgeon General Surgery 09/30/22 Zully Anton RN Registered Nurse Bariatrics 03/29/23 Enterprise Manager Relationship Specialty Start Date End Date Hermiston Xenia [address] [facility] [place] [address] PCP - General Family Medicine 09/07/22 Silviano Daley [address] [place] [address] Obstetrics and Gynecology 09/10/22 Memo Campbell MD [address] [place] [address] [address] [place] [address] Surgeon General Surgery 09/30/22 Zully Anton RN Registered Nurse Bariatrics 03/29/23 Enterprise Manager Relationship Specialty Start Date End Date Hermiston Xenia [address] [facility] [place] [phone] PCP - General Family Medicine 09/07/22 Silviano Daley [address] [place] [address] Obstetrics and Gynecology 09/10/22 Memo Campbell MD [address] [place] [address] [address] [place], [place] [address] Surgeon General Surgery 09/30/22 Zully Anton RN Registered Nurse Bariatrics 03/29/23 Enterprise Manager Relationship Specialty Start Date End Date Domingo Xenia [address] [facility] [place] [address] PCP - General Family Medicine 09/07/22 Silviano Daley [address] [place] [address] Obstetrics and Gynecology 09/10/22 Memo Campbell MD [address] [place] [address] Surgeon General Surgery 09/30/22 Zully Anton, RN Registered Nurse Bariatrics 03/29/23 Enterprise Manager Relationship Specialty Start Date End Date Xenia [address] [facility] [place] [phone] PCP - General Family Medicine 09/07/22 Silviano Daley [address] [place] [phone] Obstetrics and Gynecology 09/10/22 Memo Campbell MD [address] [place] [address] [address] [place] [address] Surgeon General Surgery 09/30/22 Zully Anton, RN Registered Nurse Bariatrics 03/29/23 Eliazar Abreu MD [address] [place] [address] [address] [place] [address] Consulting Physician Internal Medicine Cardiovascular Disease 05/27/23 Enterprise Manager Relationship Specialty Start Date End Date Xenia [address] [facility] [place] [phone] PCP - General Family Medicine 09/07/22 Silviano Daley [address] [place] [phone] Obstetrics and Gynecology 09/10/22 Memo Campbell MD [address] [place] [address] Surgeon General Surgery 09/30/22 Zully Anton, RN Registered Nurse Bariatrics 03/29/23 Eliazar Abreu MD [address] [place] [address] Consulting Physician Internal Medicine Cardiovascular Disease 05/27/23 Enterprise Manager Relationship Specialty Start Date End Date Xenia [address] [facility] [place] [phone] PCP - General Family Medicine 09/07/22 Silviano Daley [address] [place] [address] Obstetrics and Gynecology 09/10/22 Memo Campbell MD [address] [place] [address] [address] [place] [address] Surgeon General Surgery 09/30/22 Zully Anton, RN Registered Nurse Bariatrics 03/29/23 Eliazar Abreu MD [address] [place] [address] Consulting Physician Internal Medicine Cardiovascular Disease 05/27/23 Enterprise Manager Relationship Specialty Start Date End Date X[address] [facility] [place] [phone] PCP - General Family Medicine 09/07/22 Silviano Daley [address] [place] [address] Obstetrics and Gynecology 09/10/22 Memo Campbell MD [address] [place] [address] Surgeon General Surgery 09/30/22 Zully Anton, RN Registered Nurse Bariatrics 03/29/23 Eliazar Abreu MD [address] [place] [address] Consulting Physician Internal Medicine Cardiovascular Disease 05/27/23 Enterprise Manager Relationship Specialty Start Date End Date Xenia [address] [facility] [place] [phone] PCP - General Family Medicine 09/07/22 Silviano Daley [address] [place] [phone] Obstetrics and Gynecology 09/10/22 Memo Campbell MD [address] [place] [address] [address] [place] [address] Surgeon General Surgery 09/30/22 Zully Anton RN Registered Nurse Bariatrics 03/29/23 Eliazar Abreu MD [address] [place] [address] Consulting Physician Internal Medicine Cardiovascular Disease 05/27/23 Enterprise Manager Relationship Specialty Start Date End Date Xenia [address] [facility] [place] [phone] PCP - General Family Medicine 09/07/22 Silviano Daley [address] [place] [address] Obstetrics and Gynecology 09/10/22 Memo Campbell MD [address] [place] [address] [address] [place] [address] Surgeon General Surgery 09/30/22 Zully Anton, RN Registered Nurse Bariatrics 03/29/23 Eliazar Abreu MD [address] [place] [address] [address] [place] [address] Consulting Physician Internal Medicine Cardiovascular Disease 05/27/23 Enterprise Manager Relationship Specialty Start Date End Date [address] [facility] [place] [phone] PCP - General Family Medicine 09/07/22 Silviano Daley [address] [place] [phone] Obstetrics and Gynecology 09/10/22 Memo Campbell MD [address] [place] [address] [address] [place] [address] Surgeon General Surgery 09/30/22 Zully Anton, RN Registered Nurse Bariatrics 03/29/23 Eliazar Abreu MD [address] [place] [address] [address] [place] [address] Consulting Physician Internal Medicine Cardiovascular Disease 05/27/23 Enterprise Manager Relationship Specialty Start Date End Date [address] [facility] [place] [phone] PCP - General Family Medicine 09/07/22 Silviano Daley [address] [place] [phone] Obstetrics and Gynecology 09/10/22 Memo Campbell MD [address] [place] [address] [address] [place] [address] Surgeon General Surgery 09/30/22 Zully Anton, RN Registered Nurse Bariatrics 03/29/23 Eliazar Abreu MD [address] [place] [address] [address] [place] [address] Consulting Physician Internal Medicine Cardiovascular Disease 05/27/23 Enterprise Manager Relationship Specialty Start Date End Date Xenia [address] [facility] [place] [address] PCP - General Family Medicine 09/07/22 Silviano Daley [address] [place] [address] Obstetrics and Gynecology 09/10/22 Memo Campbell MD [address] [place] [address] [address] [place] [address] Surgeon General Surgery 09/30/22 Zully Anton, RN Registered Nurse Bariatrics 03/29/23 Eliazar Abreu MD [address] [place] [address] [address] [place] [address] Consulting Physician Internal Medicine Cardiovascular Disease 05/27/23 Enterprise Manager Relationship Specialty Start Date End Date [address] [facility] [place] [address] PCP - General Family Medicine 09/07/22 Silviano Daley [address] [place] [phone] Obstetrics and Gynecology 09/10/22 Memo Campbell MD [address] [place] [address] Surgeon General Surgery 09/30/22 Zully Anton, RN Registered Nurse Bariatrics 03/29/23 Eliazar Abreu MD [address] [facility] [address] [place] [address] Consulting Physician Internal Medicine Cardiovascular Disease 05/27/23 Enterprise Manager Relationship Specialty Start Date End Date Domingo Xenia [address] [facility] [place] [phone] PCP - General Family Medicine 09/07/22 Silviano Daley [address] [place] [phone] Obstetrics and Gynecology 09/10/22 Memo Campbell MD [address] [place] [address] [address] [place] [address] Surgeon General Surgery 09/30/22 Zully Anton, RN Registered Nurse Bariatrics 03/29/23 Eliazar Abreu MD [address] [facility] [address] [place] [address] Consulting Physician Internal Medicine Cardiovascular Disease 05/27/23 Enterprise Manager Relationship Specialty Start Date End Date [address] [facility] [place] [phone] PCP - General Family Medicine 09/07/22 Silviano Daley [address] [place] [phone] Obstetrics and Gynecology 09/10/22 Memo Campbell MD [address] [place] [address] Surgeon General Surgery 09/30/22 Zully Anton, RN Registered Nurse Bariatrics 03/29/23 Eliazar Abreu MD [address] [place] [address] Consulting Physician Internal Medicine Cardiovascular Disease 05/27/23 Enterprise Manager Relationship Specialty Start Date End Date Domingo Xenia [address] [facility] [place] [phone] PCP - General Family Medicine 09/07/22 Silviano Daley [address] [place] [phone] Obstetrics and Gynecology 09/10/22 Memo Campbell MD [address] [place] [address] Surgeon General Surgery 09/30/22 Zully Anton, RN Registered Nurse Bariatrics 03/29/23 Eliazar Abreu MD [address] [place] [address] Consulting Physician Internal Medicine Cardiovascular Disease 05/27/23 Enterprise Manager Relationship Specialty Start Date End Date X[address] [facility] [place] [phone] PCP - General Family Medicine 09/07/22 Silviano Daley [address] [place] [phone] Obstetrics and Gynecology 09/10/22 Memo Campbell MD [address] [place] [address] Surgeon General Surgery 09/30/22 Zully Anton, RN Registered Nurse Bariatrics 03/29/23 Eliazar Abreu MD [address] [place] [address] Consulting Physician Internal Medicine Cardiovascular Disease 05/27/23 Enterprise Manager Relationship Specialty Start Date End Date Domingo Xenia [address] [facility] [place] [phone] PCP - General Family Medicine 09/07/22 Silviano Daley [address] [place] [address] Obstetrics and Gynecology 09/10/22 Memo Campbell MD [address] [facility] [address] [place] [address] Surgeon General Surgery 09/30/22 Zully Anton, RN Registered Nurse Bariatrics 03/29/23 Eliazar Abreu MD [address] [facility] [address] [place] [address] Consulting Physician Internal Medicine Cardiovascular Disease 05/27/23 Enterprise Manager Relationship Specialty Start Date End Date Domingo Xenia [address] [facility] [place] [phone] PCP - General Family Medicine 09/07/22 Silviano Daley [address] [place] [phone] Obstetrics and Gynecology 09/10/22 Memo Campbell MD [address] [place] [address] Surgeon General Surgery 09/30/22 Zully Anton, RN Registered Nurse Bariatrics 03/29/23 Eliazar Abreu MD [address] [place] [address] Consulting Physician Internal Medicine Cardiovascular Disease 05/27/23 Enterprise Manager Relationship Specialty Start Date End Date X[address] [facility] [place] [phone] PCP - General Family Medicine 09/07/22 Silviano Daley [address] [place] [address] Obstetrics and Gynecology 09/10/22 Memo Campbell MD [address] [place] [address] [address] [place] [address] Surgeon General Surgery 09/30/22 Zully Anton, RN Registered Nurse Bariatrics 03/29/23 Eliazar Abreu MD [address] [facility] [address] [place] [address] Consulting Physician Internal Medicine Cardiovascular Disease 05/27/23 Enterprise Manager Relationship Specialty Start Date End Date X[address] [facility] [place] [phone] PCP - General Family Medicine 09/07/22 Silviano Daley [address] [place] [phone] Obstetrics and Gynecology 09/10/22 Memo Campbell MD [address] [place] [address] Surgeon General Surgery 09/30/22 Zully Anton, RN Registered Nurse Bariatrics 03/29/23 Eliazar Abreu MD [address] [place] [address] Consulting Physician Internal Medicine Cardiovascular Disease 05/27/23 Enterprise Manager Relationship Specialty Start Date End Date Domingo Xenia [address] [facility] [place] [phone] PCP - General Family Medicine 09/07/22 Silviano Daley [address] [place] [phone] Obstetrics and Gynecology 09/10/22 Memo Campbell MD [address] [place] [address] Surgeon General Surgery 09/30/22 Zully Anton, RN Registered Nurse Bariatrics 03/29/23 Eliazar Abreu MD [address] [place] [address] Consulting Physician Internal Medicine Cardiovascular Disease 05/27/23 Enterprise Manager Relationship Specialty Start Date End Date X[address] [facility] [place] [phone] PCP - General Family Medicine 09/07/22 Silviano Daley [address] [place] [phone] Obstetrics and Gynecology 09/10/22 Memo Campbell MD [address] [place] [address] Surgeon General Surgery 09/30/22 Zully Anton, RN Registered Nurse Bariatrics 03/29/23 Eliazar Abreu MD [address] [place] [address] [address] [place] [address] Consulting Physician Internal Medicine Cardiovascular Disease 05/27/23 Enterprise Manager Relationship Specialty Start Date End Date Domingo Xenia [address] [place] [address] [place] [phone] PCP - General Family Medicine 09/07/22 Silviano Daley [address] [place] [address] [address] [place] [phone] Obstetrics and Gynecology 09/10/22 Memo Campbell MD [address] [place] [address] [address] [place] [address] Surgeon General Surgery 09/30/22 Zully Anton, RN Registered Nurse Bariatrics 03/29/23 Eliazar Abreu MD [address] [place] [address] [address] [place] [address] Consulting Physician Internal Medicine Cardiovascular Disease 05/27/23 Team Status: Inactive Member Role Status Dates Xenia BRISENO PA-C Primary Care Provider Active Start: February 28, 2024 End: February 28, 2024 Dr. Silviano Daley MD Attending Provider Active Start: February 28, 2024 End: February 28, 2024 Dr. Silviano Daley MD Referring Provider Active Start: February 28, 2024 End: February 28, 2024 Team Status: Inactive Member Role Status Dates KARLA FishC Primary Care Provider Active Start: March 01, [...] End: March 10, 2024 Dr. Fernando Al DO Attending Provider Active Start: March 10, 2024 End: March 10, 2024 Dr. Fernando Al DO Emergency Provider Active Start: March 10, 2024 End: March 10, 2024 Team Status: Inactive Member Role Status Dates Xenia Lane PA, PA-C Primary Care Provider Active Start: March 13, 2024 End: March 13, 2024 Dr. Peggy Flynn , Attending Provider Activ e Start: March 13, 2024 End: March 13, 2024 Dr. Peggy Flynn DO Referring Provider [...] April 20, 2024 Dr. Peggy Flynn , Attending Provider Activ e Start: April 20, 2024 End: April 20, 2024 Dr. Peggy Flynn DO Referring Provider Activ e Start: April 20, 2024 End: April 20, 2024 Team Status: Inactive Member Role Status Dates SUZANNA Chavez Attending Provider Active Start: April [...] Active Start: May 01, 2024 Lidya Booker COMPETENCY EVALUATED NURSE AIDE, COMPETENCY EVALUATED NURSE AIDE-C Attending Provider Active Start: May 01, 2024 Lidya Booker COMPETENCY EVALUATED NURSE AIDE, COMPETENCY EVALUATED NURSE AIDE-C Referring Provider Active Start: May 01, 2024 Team Status: Active Member Role Status Dates Xenia Lane PA, PA-C Primary Care Provider Active Start: May 02, 2024 Dr. Peggy Flynn , DO Attending Provider Activ e Start: May 02, 2024 Dr. Peggy Flynn , DO Referring Provider Activ e Start: May 02, 2024 Team Status: Inactive Member Role Status Dates Xenia Lane PA, PA-C Primary Care Provider Active Start: April 18, 2024 End: April 18, 2024 Dr. Peggy Flynn , DO Attending Provider Activ e Start: April [...] 2024 End: May 01, 2024 Lidya Booker COMPETENCY EVALUATED NURSE AIDE, COMPETENCY EVALUATED NURSE AIDE-C Attending Provider Active Start: May 01, 2024 End: May 01, 2024 Lidya Booker COMPETENCY EVALUATED NURSE AIDE, COMPETENCY EVALUATED NURSE AIDE-C Referring Provider Active Start: May 01, 2024 End: May 01, 2024 Team Status: Active Member Role Status Dates Xenia Lane PA, PA-C Primary Care Provider Active Start: May 05, 2024 Dr. Peggy Flynn , DO Attending Provider Activ e Start: May 05, 2024 Dr. Peggy Flynn , DO Referring Provider Activ e Start: May [...] May 09, 2024 End: May 09, 2024 Enterprise Manager Relationship Specialty Start Date End Date Xenia Lane [address] [place] [address] [place] [phone] PCP - General Family Medicine 09/07/22 Silviano Daley [address] [facility] [address] [phone] Obstetrics and Gynecology 09/10/22 Memo Campbell MD [address] [place] [address] Surgeon General Surgery 09/30/22 Zully Anton, RN Registered Nurse Bariatrics 03/29/23 Eliazar Abreu MD [address] [place] [address] Consulting Physician Internal Medicine Cardiovascular Disease 05/27/23 Team Status: Inactive Member Role Status Dates Xenia Lane PA, PA-C Primary Care Provider Active Start: May 25, 2024 End: May 25, 2024 Dr. Peggy Flynn , DO Attending Provider Activ e Start: May 25, 2024 End: May 25, 2024 Dr. Peggy Flynn DO Referring Provider Activ e Start: May 25, 2024 End: May 25, 2024 Team Status: Inactive Member Role Status Dates Xenia [place] PA, PA-C Primary Care Provider Active Start: [...] 27, 2024 End: June 27, [address] PA, PA-C Referring Provider [...] Team Status: Inactive Member Role Status Dates Xenai Lane PA, PA-C Primary Care Provider Active [...] 04, 2024 End: July 04, 2024 Xenia Domingo PA, PA-C Referring Provider Active Start: July [...] July 04, 2024 End: July 04, 2024 Enterprise Manager Relationship Specialty Start Date End Date Ruchi Lanechristiane Ruvalcaba, PA-C I: [phone] [address] [place] [address] [place] [address] PCP - General Family Medicine 06/29/24 Team Status: Active Member Role Status Dates Xenia Hills PA, PA-C Primary Care Provider Active Start: July 29, 2024 Dr. Silviano Daley MD Attending Provider Active Start: July 29, 2024 Dr. Silviano Daley MD Referring Provider Active Start: July 29, 2024 Team Status: Inactive Member Role Status Dates Xenia Hills PA, PA-C Primary Care Provider Active Start: August 01, 2024 End: August 01, 2024 Dr. Peggy Vande Velde , DO Attending Provider Activ e Start: August 01, 2024 End: August 01, 2024 Dr. Peggy Flynn , DO Referring Provider Activ e Start: August 01, 2024 End: August 01, 2024 Team Status: Active Member Role Status Dates Xenia Lane PA, PA-C Primary Care Provider Active Start: August 01, 2024 Dr. Peggy Flynn DO Attending Provider Activ e Start: August 01, 2024 Dr. Peggy Flynn DO Referring Provider Activ e Start: August 01, 2024 Dr. Peggy Flynn DO Other Provider Active Start: August 01, 2024 Team Status: Inactive Member Role Status Dates Xenia Lane PA, PA-C Primary Care Provider Active Start: July 29, 2024 End: July 29, 2024 Dr. Silviano Daley MD Attending Provider Active Start: July 29, 2024 End: July 29, 2024 Dr. Silviano Daley MD Referring Provider Active Start: July 29, 2024 End: July 29, 2024 Team Status: Inactive Member Role Status Dates Xenia Lane PA, PA-C Primary Care Provider Active Start: August 14, 2024 End: August 14, [address] PA, PA-C Referring Provider Active Start: August 14, 2024 End: August 14, 2024 Dr. Peggy Flynn , DO Attending Provider Activ e Start: August 14, 2024 End: August 14, 2024 Enterprise Manager Relationship Specialty Start Date End Date Xenia Lane [address] [place] [address] [place] [phone] PCP - General Family Medicine 09/07/22 Silviano Daley [address] [place] [address] [address] [place] [phone] Obstetrics and Gynecology 09/10/22 Memo Campbell MD [address] [place] [address] [address] [place] [address] Surgeon General Surgery 09/30/22 Zully Anton, RN Registered Nurse Bariatrics 03/29/23 Eliaazr Abreu MD [address] [facility] [address] [place] [address] Consulting Physician Internal Medicine Cardiovascular Disease 05/27/23 Reason for Visit (unrecogniz ed section and content) Reason Comments Procedure Specialty Diagnoses / Procedures Referred By Contac t Referred To Contact Diagnoses Painless pancreatitis Acute pancreatitis, unspecified complication status, unspecified pancreatitis type Nausea and vomiting, unspecified vomiting type Procedures K85.47ADF-78-VTRhxaruye pancreatitis K85.84IAO-38-HZNhmtu pancreatitis, unspecified complication status, unspecified pancreatitis type R11.0ICO-35-AGRcanrs and vomiting, unspecified vomiting type Close Seth Leal DO [address] [place] [address] Phone: tel: fax: [facility] Surgical Progressive Care Unit PCU [address] [place] [address] Phone: tel: Referral ID Status Reason Start Date Expiration Date Visits Re quested Visits Authorized [id number] 1 1 Reason Comments New Patient Specialty Diagnoses / Procedures Referred By Jaronac t Referred To Contact Cardiology Diagnoses Paroxysmal atrial fibrillation (HCC) Atrial fibrillation with RVR (HCC) Procedures HI OFFICE/OUTPATIENT NEW HIGH MDM 60 MINUTES Matteo Abreu MD [address] [place] [address] [facility] [address] [place] [address] Referral ID Status Reason Start Date Expiration Date V isits Requested Visits Authorized [id number] Closed Specialty Services Required 07/05/2023 07/04/2024 1 1 Reason Comments Surgical Consult New Surg Specialty Diagnoses / Procedures Referred By Contac t Referred To Contact Bariatrics Diagnoses Morbid (severe) obesity due to excess calories (HCC) Procedures Eval & Silviano Romano [address] [place] [address] [facility] [address] [place] [address] Referral ID Status Reason Start Date Expiration Date V isits Requested Visits Authorized [id number] Pending Review 09/07/2022 09/07/2023 1 1 Reason [...] By Korina gill Referred To Contact Diagnoses Functional dyspepsia Functional dyspepsia [K30] Procedures HI EGD TRANSORAL BIOPSY SINGLE/MULTIPLE EGD WITH BIOPSY Memo Campebll MD [address] [facility] [address] [place] [address] [facility] [address] [place] [address] Referral ID Status Reason Start Date Expiration Date Visits Re quested Visits Authorized [id number] 1 1 Reason Comments Weight Loss D/E final 3 of 3 Specialty Diagnoses / Procedures Referred By Korina gill Referred To Contact Pulmonary Disease / Pulmonology Diagnoses Morbid obesity with BMI of 60.0-69.9, adult (HCC) Daytime sleepiness Pre-operative clearance Procedures HI OFFICE/OUTPATIENT NEW HIGH MDM 60-74 MINUTES Miley Moise PA [address] [place] [address] [facility] [address] [facility] [address] [place] [address] Referral ID Status Reason Start Date Expiration Date Visits Requested Visits Authorized [id number] Pending Review Specialty Services Required 10/06/2022 10/06/2023 [...] FPOV Specialty Diagnoses / Procedures Referred By Contac t Referred To Contact Diagnoses Morbid (severe) obesity due to excess calories (HCC) Morbid (severe) obesity due to excess calories (HCC) [E66.01] Procedures HI LAPS GSTR RSTCV PX W/BYP SANDRA-EN-Y LIMB <150 CM HI UNLISTED LAPAROSCOPIC PROCEDURE LIVER LAPAROSCOPIC SANDRA-EN-Y GASTRIC BYPASS WITH LIVER WEDGE BIOPSY, POSSIBLE OPEN UNLISTED LAPAROSCOPIC PROCEDURE LIVER Memo Campbell MD [address] [facility] [address] [place] [address] [facility] Main Or [address] [place] [address] Referral ID Status Reason Start Date Expiration Date Visits Re quested Visits Authorized [id number] 1 1 Reason Onset Date Comments Upper [...] ago. Specialty Diagnoses / Procedures Referred By Contcatarino t Referred To Contact Diagnoses Dizziness Hemoperitoneum Procedures R42 (ICD-10-CM) - Dizziness Jeannine Worthy MD [address] [facility] [address] [place] [address] Ach [facility] Pru [address] [place] [address] Referral ID Status Reason Start Date Expiration Date Visits Re quested Visits Authorized [id number] 1 1 Reason Onset Date Comments Appointment 05/20/2023 1 week Reason Onset Date Comments Dizziness 05/18/2023 Reason Comments Bariatrics Post Op Follow-up 1WK Reason Comments Vomiting Specialty Diagnoses / Procedures Referred By Jaronac t Referred To Contact Diagnoses Painless pancreatitis Acute pancreatitis, unspecified complication status, unspecified pancreatitis type Nausea and vomiting, unspecified vomiting type Procedures K85.00LOV-27-JWGfzqwzgq pancreatitis K85.02LMM-85-XHUpsbe pancreatitis, unspecified complication status, unspecified pancreatitis type R11.2AWY-81-PYWbyluw and vomiting, unspecified vomiting type Close Seth Leal, DO [address] [facility] [address] [place] [address] [facility] H[facility] Surgical Pcu [address] [place] [address] Reason Comments Bariatrics Post Op Follow-up 1M Reason Comments 6 Month Follow-up Reason Comments Bariatrics Post Op Follow-up 3M Reason Comments Follow-up Reason Comments Illness Patient arrived to D c/o headache, nausea, dizziness since last Wednesday. States she was seen by PCP and was negative for all viruses. Hx of gastric bypass. PCP was also concerned for her liver labs and wanted her to be seen at the hospital. Recently had blood cultures that came back positive. Specialty Diagnoses / Procedures Referred By Contcatarino t Referred To Contact Diagnoses Anorexia Transaminitis Elevated alkaline phosphatase level Intractable nausea Procedures - Joseluis Gentile MD [address] [place] [address] [facility] [address] [place] [address] Referral ID Status Reason Start Date Expiration Date Visits Re quested Visits Authorized [id number] 1 1 Reason Onset Date Comments Nausea 10/28/2023 Reason Comments Nausea Pt c/o of nausea, we akness and dizziness. 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 Pt states at triage window. I'm pretty sure I'm dehydrated. Specialty Diagnoses / Procedures Referred By Korina gill Referred To Contact Diagnoses Transaminitis Procedures - Manuel Villarreal MD [address], [address] [place] [address] [facility] Emergency Dept [address] [place] [address] Referral ID Status Reason Start Date Expiration Date Visits Re quested Visits Authorized [id number] 1 1 Reason Onset Date Comments Care Coordination 11/05/2023 Reason Onset Date Comments Results 11/08/2023 Reason Comments Bariatrics Post Op Follow-up 6M Specialty Diagnoses / Procedures Referred By Korina gill Referred To Contact Sleep Medicine Diagnoses MOE (obstructive sleep apnea) Procedures Home sleep test Hyun Hirsch PA-C [address] [place] [address] [facility] [address] [place] [address] Referral ID Status Reason Start Date Expiration Date Visits Re quested Visits Authorized [id number] Closed 08/23/2023 08/17/2024 1 1 Reason Comments Follow-up Reason Comments Bariatrics Post Op Follow-up 12M Reason Onset Date Comments Abnormal Lab 05/12/2024 Vitamin D, Iron, B12 Reason Comments Bariatrics Post Op Follow-up 18M POP Continuous Active and Recently Administ ered Medications (unrecognized section and content) Medication Order 01/10/2023 01/11/2023 01/12/2023 sodium chloride 0.9 % infusion 50 mL/hr, IntraVENous, Continuous, Starting on Wed01/12/23 at 0700, Preprocedure 0700 (Canceled Entry - Provider: Automatic Discharge Provider - Comment: Automatically canceled at discontinue of medication order)0757 (Anesthesia Volume Adjustment - Provider: El Arriaga APRN - JUDGE CLERK) Scheduled Medication Order 05/09/2023 05/10/2023 05/11/2023 acetaminophen [...] Unit 0800 (Not Given - Provider: Christy Self, HAT MEASURER - Reason: Patient/family refused) ceFAZolin (Ancef) 3,000 mg in sodium chloride 0.9 % 100 mL IVPB (COMPLETED) 3,000 mg, IntraVENous, at 200 mL/hr, Administer over 30 Minutes, Database Report Writer to O.R., On Wed05/10/23 at 1200, For 1 dose, Preprocedure, Administer within 1 hour prior to incision. Repeat in 3-4 hours after initial dose if still intra-op. Default Settings:Auto-dosed by Weight Database Report Writer to O.R x 1 dose Auto-dosed: Pt Wt<119.9kg-2gm, >120kg-3gm Mini-Bag Plus bag, Suspected Indication (Select all that apply): Surgical Prophylaxis 1341 (New Bag - Provider: Charlotte Camacho, TABLE RUNNER - JUDGE CLERK) celecoxib (CeleBREX) capsule 400 mg (COMPLETED) 400 [...] Prophylaxis-DVT/PE 0846 (Given - Provid er: Elise Woodward, KATALINA) enoxaparin (Lovenox) syringe 40 mg (CANCELED) 40 mg, SubCUTAneous, Every 12 hours, First dose on Wed05/10/23 at 2200, Indication of Use: Prophylaxis-DVT/PE 7 (Given - Provider: Babs King, KATALINA) famotidine (Pepcid) tablet 20 mg (COMPLETED)(Linked Group [...] Babs King RN)1307 (Given - Provider: Elise Woodward, KATALINA) lactated ringers bolus 1,000 mL (COMPLETED) 1,000 [...] Babs King RN)0719 (Stopped - Provider: Elise Woodward RN) metoprolol succinate XL (Toprol-XL) 24 hr tablet [...] on Wed05/10/23 at 2130, Phase II/On Unit 2136 (Given - Provider: Babs King RN) 0900 (Not Given - Provider: Elise Woodward RN - Reason: IV Fluids Infusing) Continuous Medication Order 05/09/2023 05/10/2023 05/11/2023 dextrose 5 % and sodium chloride 0.45 % with KCl 20 mEq/L infusion 100 mL/hr, IntraVENous, Continuous, Starting on Wed05/10/23 at 2130, Phase II/On Unit 2134 (New Bag - Provider: Babs King RN) 1156 (New Bag - Provider: Elise Woodward RN) lactated Ringer's (LR) infusion (CANCELED) 50 mL/hr, IntraVENous, Continuous, Starting on Wed05/10/23 at 1200, Preprocedure, Upon admission to sameday - please start iv if patient does not have iv access. Use 500ml NS for patients on dialysis. 1227 (New Bag - Provider: Jocelyn Sosa RN)1341 (Continued by Anesthesia - Provider: LUCIA Anderson CRNA)1535 (New Bag - Provider: LUCIA Anderson CRNA)1640 [...] of each other unless specifically ordered. 2135 (See Alternative - Provider: Babs King RN) 518 (See Alternative - Provider: Babs King RN)08 (See Alternative - Provider: Elise Woodward, KATALINA) HYDROmorphone (Dilaudid) injection 0.5 mg (CANCELED) 0.5 [...] 2135 (Given - Provider: Babs King RN) 518 (Given - Provider: Babs King RN)0854 (Given [...] sedation for opioid reversal - MUST notify system controller provider immediately after first dose, may give [...] Guerrero RN)0057 (Stopped - Provider: Deysi Guerrero RN)0936 (New Bag - Provider: Blas Huitron RN)0951 (Stopped - Provider: Blas Huitron RN)1515 (New [...] Reason: Other)1515 (Given - Provider: Blas Huitron RN)211 (Given - Provider: Sarah Reed RN) 030 (Given - Provider: Sarah Reed RN)0827 (Given [...] - Provider: Lucy Castano RN) nystatin (Mycostatin) [id number] UNIT/ML suspension 500,000 Units 500,000 Units (5 mL), Swish & Swallow, 3 times daily, First dose on Wed05/20/23 at 1400 1515 (Given - Provider: Blas Huitron RN)211 (Given - Provider: Sarah Reed RN) 0828 (Given - Provider: Odette Burleson RN)1400 (Canceled Entry - Provider: Automatic Discharge Provider - Comment: Automatically canceled at discontinue of medication order) ondansetron (Zofran) injection 4 mg (COMPLETED) 4 mg, IntraVENous, Once, On Wed05/19/23 at 1510, For 1 dose 1530 (Given - Provider: Lucy Castano RN) pantoprazole (ProtoNix) 40 mg in sodium chloride (PF) 0.9 % 10 mL injection 40 mg, IntraVENous, Administer over 2 Minutes, Daily, First dose on Wed05/20/23 at 0900, Phase II/On Unit, Reconstitute with 10 ml NS. Vial expires 2 hrs after reconstitution. 0936 (Given - Provider: Blas Huitron RN) 08 (Given - Provider: Odette Burleson RN) potassium [...] On Wed05/19/23 at 1510, For 1 dose 1531 (New Bag - Provider: Lucy Castano RN)1631 (Stopped - Provider: Helen Mccarthy RN) sodium chloride 0.9 % bolus 500 mL (COMPLETED) 500 mL, IntraVENous, at 500 mL/hr, Administer over 1 Hours, Once, On Wed05/19/23 at 2210, For 1 dose 2215 (New Bag - Provider: Danyelle Lu, KATALINA)2315 (Stopped - Provider: Deysi Guerrero RN) Continuous Medication Order 05/19/2023 05/20/2023 05/21/2023 lactated Ringer's (LR) infusion (CANCELED) 100 mL/hr, IntraVENous, Continuous, Starting on Wed05/19/23 at 2345, Phase II/On Unit 0034 (New Bag - Provider: Panfilo Guerrero RN)1600 (Rate/Dose Verify - Provider: Blas Huitron RN)1745 (Rate/Dose Verify - Provider: Blas Huitron RN)2124 (New Bag - Provider: Sarah Reed RN)2237 (Rate/Dose Verify - Provider: Sarah Reed RN) [...] 1 dose 1835 (Given - Provider: Natalie Sol, RT (R)(CT) - Comment: sang scanned/ injected) naloxone (Narcan) injection 0.4 mg 0.4 mg, IntraVENous, Every 5 min PRN, opioid reversal, respiratory depression, Starting on Wed05/19/23 at 2335, +++ For RR <10, pinpoint pupils, over sedation for opioid reversal - MUST notify system controller provider immediately after first dose, may give [...] Ramon RN)0931 (New Bag - Provider: Tequila Maharaj, KATALINA)0946 (Stopped - Provider: Tequila Maharaj, KATALINA)1759 (New Bag - Provider: Tequila Maharaj, KATALINA)1814 (Stopped - Provider: Tequila Maharaj, KATALINA) 0035 (New Bag - Provider: Vera Ramon, KATALINA)0050 (Stopped - Provider: Vera Ramon, KATALINA)0932 (New Bag - Provider: Perla Peralta, KATALINA)0947 (Stopped - Provider: Perla Peralta, RN)1618 (New Bag - Provider: Perla Peralta RN)1633 (Stopped - Provider: Perla Peralta RN)2314 (New Bag - Provider: Aissatou Almanzar RN)232 (Stopped - Provider: Aissatou Almanzar RN) 0817 (Not Given - Provider: Jhonatan Rivera RN - Reason: Patient/family refused) enoxaparin (Lovenox) syringe 40 mg 40 mg, SubCUTAneous, Every 12 hours, First dose on Wed06/07/23 at 2100, Indication of Use: Prophylaxis-DVT/PE 09 (Not Given - Provider: Tequila Maharaj RN - Reason: Patient/family refused)225 (Not Given - Provider: Vera Ramon RN - Reason: Patient/family refused) 09 (Not Given - Provider: Perla Peralta RN [...] RN) 0934 (Given - Provider: Perla Peralta RN)203 (Given - Provider: Aissatou Almanzar, KATALINA) 0817 (Given - Provider: Jhonatan Rivera, KATALINA) pantoprazole (ProtoNix) 40 mg in sodium chloride (PF) 0.9 % 10 mL injection 40 mg, IntraVENous, Administer over 2 Minutes, 2 times daily, First dose on Wed06/04/23 at 0600, Phase II/On Unit, Reconstitute with 10 ml NS. Vial expires 2 hrs after reconstitution. 0558 (Given - Provider: Vera Ramon RN)1759 (Given - Provider: Tequila Maharaj, KATALINA) 0653 (Given - Provider: Vera Ramon, KATALINA)1618 (Given - Provider: Perla Peralta RN) 0507 (Given - Provider: Aissatou Almanzar RN) potassium chloride 40 mEq in NS 500 mL IVPB (premix) (COMPLETED) 40 mEq, IntraVENous, at 125 mL/hr, Administer over 4 Hours, Once, On Wed06/09/23 at 1100, For 1 dose, Max infusion rate = 10 mEq/hr 1154 (New Bag - Provider: Tequila Maharaj RN)1554 (Stopped - Provider: Tequila Maharaj RN) potassium chloride 40 mEq in NS 500 mL IVPB (premix) (COMPLETED) 40 mEq, IntraVENous, at 125 mL/hr, Administer over 4 Hours, Once, On Wed06/10/23 at 1300, For 1 dose, Max infusion rate = 10 mEq/hr 1226 (New Bag - Provider: Perla Peralta RN)1626 (Stopped - Provider: Perla Peralta RN) scopolamine (Transderm-Scop) patch 1 patch 1 [...] Vera Ramon RN)1615 (Given - Provider: Tequila Maharaj RN) 0415 (Given - Provider: Vera Ramon RN)1615 (Given - Provider: Perla Peralta, RN) 0507 (Given - Provider: Aissatou Almanzar RN) Continuous Medication Order 06/09/2023 06/10/2023 06/11/2023 [...] Vera Ramon RN)1805 (Stopped - Provider: Perla Peralta, KATALINA) Adult TPN Central Line 1,680 mL, IntraVENous, at 70 mL/hr, Administer over 24 Hours, Continuous TPN, Starting on Wed06/10/23 at 0730, For 10 hours, Decrease TPN rate by 1/2 at 4pm today, 06/10/23, then DC TPN at 6pm. No further TPN at this time. Use a 1.2 micron filter. 1600 (Rate/Dose Change - Provider: Perla Peralta, RN)1800 (Stopped - Provider: Aissatou Almanzar, KATALINA - Comment: per pete DARDEN) PRN Medication Order 06/09/2023 06/10/2023 06/11/2023 heparin flush injection 250 Units 250 Units, IntraCATHeter, PRN, line care, after blood draws and after infusion, Starting on Wed06/07/23 at 1608, Do NOT administer to lumens with continuous fluids currently infusing. Line Care. Use 10 mL or larger syringe. metoprolol tartrate (Lopressor) injection 5 mg 5 mg, IntraVENous, Every 6 hours PRN, tachycardia, AF with HR>110, Starting on Wed06/08/23 at 1045, Phase II/On Unit naloxone (Narcan) injection 0.4 mg 0.4 mg, IntraVENous, Every 5 min PRN, opioid reversal, respiratory depression, Starting on Jazmyn 06/03/23 at 2354, +++ For RR <10, pinpoint pupils, over sedation for opioid reversal - MUST notify system controller provider immediately after first dose, may give [...] after 30 minutes, then use promethazine. Give HI if patient is unable to take orally. [...] after 30 minutes, then use promethazine. Give HI if patient is unable to take orally. [...] Patient/family refused)2100 (Not Given - Provider: Sandy Bennie, RN - Reason: Patient/family refused) cholecalciferol (Vitamin D-3) tablet 125 mcg 125 mcg, Oral, Daily, First dose on Wed10/27/23 at 0900 1256 (Given - Provid er: Lexis Price RN) enoxaparin (Lovenox) syringe 30 mg 30 mg, SubCUTAneous, Every 12 hours scheduled (2 times per day), First dose on Wed10/27/23 at 0900, Indication of Use: Prophylaxis-DVT/PE 09 (Not Given - Provider: Lexis Price RN [...] sedation for opioid reversal - MUST notify system controller provider immediately after first dose, may give [...] Oral, 2 times daily, First dose on Jazmyn 10/28/23 at 2100 0912 (Given - Provider: Babs Wheeler RN)2055 (Given - Provider: Lindsay Emerson RN) 1039 (Given - Provider: Aissatou Parson, RN)2223 (Given - Provider: Lindsay Emerson RN) 0814 (Given - Provider: Scott Corral, RN) polyethylene glycol (PEG) 3350 (Miralax) packet 17 g 17 g, Oral, Daily, First dose (after last modification) on 10/30/23 at 1045, 1st line for treatment of constipation - give scheduled if no bowel movement in past 24 hours. 0900 (Not Given - Provider: Babs Wheeler RN - Reason: Patient/family refused) 1039 (Given - Provider: Aissatou Parson, RN) 0814 (Given - Provider: Scott Corral, KATALINA) potassium chloride CR (Klor-Con M10) ER tablet 40 mEq (COMPLETED) 40 mEq, Oral, Once, On 11/01/23 at 1145, For 1 dose, Best given with food and plenty of water to minimize gastric irritation. Do not crush or chew. 1311 (Given - Provider: Indigo Castano RN) Continuous Medication Order 10/31/2023 11/01/2023 11/02/2023 lactated Ringer's infusion 75 mL/hr, IntraVENous, Continuous, Starting on Jazmyn 10/28/23 at 1545 0846 (New Bag - Provider: Osiris Lizarraga)1045 (Rate/Dose Verify - Provider: Babs Wheeler RN) 0628 (Rate/Dose Verify - Provider: Lindsay Emerson RN) PRN Medication Order 10/31/2023 11/01/2023 11/02/2023 acetaminophen [...] BE BASED ON THE PRIMARY CLINICAL RECORDS. [employer] provides no warranty or guarantee of the accuracy or completeness of information in this document.
[2025-02-05 18:08] LABS: Chlamydia By Nucleic Acid AMP Negative (Negative); Gonococcus By Nucleic Acid AMP Negative (Negative)
== END | disposition home or self-care (01) ==
LOC: LABSPEC 16:17
PROVIDERS: PCP Family Medicine; Visit Provider Student in an Organized Health Care Education/Training Program
DX: O09.90 Supervision of high risk pregnancy, unspecified, unspecified trimester (principal); Z3A.00 Weeks of gestation of pregnancy not specified
CPT/HCPCS: 87491; 87591

== ENCOUNTER → 2025-02-20 | Outpatient (CLI) | payer MEDICAID, SELFPAY ==
[2025-02-20 15:37] LABS: Hematocrit 35.7 % (37-47); Hemoglobin 10.7 g/dL (12.0-15.0); Immature Granulocytes Count 0.030 X10^3/uL (0.0-0.0); Mean Corp Hgb Conc 30.0 g/dL (32-36); Mean Corpuscular Volume 66.9 fL (81-99); Mean Platelet Vol. 10.8 fl (6.2-12.0); NRBC Flagged by Analyzer 0 % (0-5); Platelet Count 356 K/mm3 (150-450); RBC Distribution Width CV 19.4 % (11.6-14.6); RBC Distribution Width SD 44.6 fl (35.1-43.9); Red Blood Count 5.34 M/mm3 (4.2-5.4); White Blood Count 9.2 K/mm3 (4.4-11.0)
[2025-02-20 15:55] LABS: Creatinine, Urine (random) 122.00 mg/dL (28.00-217.00); Protein, Urine (Random) 15.5 mg/dL (0.0-12.0); Protein:Creat Ratio 127 mg/g CRE (0-200)
[2025-02-20 16:25] LABS: FOLATES,SERUM (FOLIC ACID) 7.23 ng/mL (4.60-34.80)
[2025-02-20 16:40] LABS: Ferritin 7 ng/mL (22-378); HIV Nonreactive (Nonreactive); Hepatitis B Surface Antigen Nonreactive (Nonreactive); Hepatitis C Antibody Nonreactive (Nonreactive); Iron 35 ug/dL (50-170); Syphilis Antibodies Nonreactive (Nonreactive); Vitamin B12 238 pg/mL (180-914)
[2025-02-20 16:55] LABS: AST(SGOT) 29 U/L (<=31); Alanine Aminotransfer ALT/SGPT 39 U/L (<=34); Albumin, Serum 4.3 g/dL (3.5-5.0); Alkaline Phosphatase 73 U/L (35-104); Anion Gap 14 (7-18); BUN 7 mg/dL (4-19); BUN/Creat Ratio 15.2 RATIO (10-20); Calcium 9.3 mg/dL (7.6-11.0); Calcium,Total 9.3 mg/dL (7.6-11.0); Carbon Dioxide 20.2 mmol/L (20.0-29.0); Chloride 101 mmol/L (96-106); Globulin 3.6 g/dL (2.2-4.2); Glucose 83 mg/dL (70-99); Potassium 3.6 mmol/L (3.5-5.1)
[2025-02-23 12:08] LABS: Vitamin D 1,25-Dihydroxy 184.0 pg/mL (24.8-81.5)
[2025-02-26 09:08] LABS: Vitamin B1, Thiamine 94.2 nmol/L (66.5-200.0)
== END | disposition home or self-care (01) ==
PROVIDERS: PCP Family Medicine; Visit Provider Student in an Organized Health Care Education/Training Program
DX: O09.91 Supervision of high risk pregnancy, unspecified, first trimester (principal); O99.211 Obesity complicating pregnancy, first trimester; O16.1 Unspecified maternal hypertension, first trimester; Z98.84 Bariatric surgery status; Z3A.00 Weeks of gestation of pregnancy not specified
CPT/HCPCS: 36415; 80053; 82310; 82570; 82607; 82652; 82728; 82746; 83036; 83540; 84156; 84425; 85025; 86703; 86762; 86780; 86803; 86850; 86900; 86901; 87086; 87088; 87340